=== PATIENT | female | born 1955 | race Caucasian/White ===

== ENCOUNTER 2022-12-27 08:01 | Outpatient (OUT) | payer MEDICARE, SELFPAY ==
[2022-12-27 09:40] LABS: Alanine Aminotransferase 40 U/L (14-59); Albumin Globulin Ratio 0.9; Albumin Level 2.8 g/dL (3.4-5.0); Alkaline Phosphatase 38 U/L (46-116); Aspartate Amino Transferase 35 U/L (15-37); Bilirubin Direct 0.1 mg/dL (0.0-0.2); Bilirubin Total 0.1 mg/dL (0.2-1.0); Calcium 7.7 mg/dL (8.5-10.1); Chol HDL Ratio 1.9; Cholesterol 111 mg/dL (<=200); HDL Cholesterol 59 mg/dL (40-60); LDL Cholesterol Calculated 26.2 mg/dL; Total Protein 5.8 g/dL (6.4-8.2); Triglycerides 129 mg/dL (<=150); VLDL CHOLESTEROL 25.8 mg/dL
[2022-12-27 09:46] LABS: Estimated Average Glucose 94 mg/dL; Glycohemoglobin A1C 4.9 % (4.5-6.2)
== END 2022-12-27 08:02 ==
LOC: LAB 08:06
DX: Z79.899 Other long term (current) drug therapy (principal); E78.5 Hyperlipidemia, unspecified; I50.20 Unspecified systolic (congestive) heart failure; M81.0 Age-related osteoporosis without current pathological fracture
CPT/HCPCS: 36415; 80061; 80076; 82306; 82310; 83036; 83880; 84443

== ENCOUNTER 2023-01-18 17:43 | Emergency (ER) | payer MEDICARE, SELFPAY ==
[2023-01-18 17:50] VITALS: BP 153/80; PULSE 85; RESP 20; TEMP 36.8; O2SAT 99; BMI 24.7
--- NOTE | 2023-01-18 18:06 | XR_ITS ---
[address] [address] Patient Name: ASHVIN RENE MRN: [id number] date: 1955 Sex: F Assigned Patient Location: ER Current Patient Location: ED.MAIN Accession/Order Number: [id number] Exam Date: 01/18/2023 18:25 Report Date: 01/18/2023 18:59 At the request of: SHANTI RAINEY Procedure: XR tibia fibula LT 2V EXAM: XR ankle LT min 3V, XR tibia fibula LT 2V HISTORY: atraumatic pain COMPARISON: None. TECHNIQUE: 3 views of the left ankle and 2 views of the left tibia fibula FINDINGS: There is no acute fracture or dislocation. There is a small heel spur. Diffuse osteopenia. There is vascular calcification. Soft tissue is unremarkable. IMPRESSION: No acute fracture. Electronically authenticated by: CHASITY CRISOSTOMO Date: 01/18/2023 18:59
--- NOTE | 2023-01-18 18:06 | XR_ITS ---
The [address] [address] Patient Name: ASHVIN RENE MRN: [id number] date: 1955 Sex: F Assigned Patient Location: ER Current Patient Location: ED.MAIN Accession/Order Number: [id number] Exam Date: 01/18/2023 18:25 Report Date: 01/18/2023 18:59 At the request of: SHANTI RAINEY Procedure: XR ankle LT min 3V EXAM: XR ankle LT min 3V, XR tibia fibula LT 2V HISTORY: atraumatic pain COMPARISON: None. TECHNIQUE: 3 views of the left ankle and 2 views of the left tibia fibula FINDINGS: There is no acute fracture or dislocation. There is a small heel spur. Diffuse osteopenia. There is vascular calcification. Soft tissue is unremarkable. IMPRESSION: No acute fracture. Electronically authenticated by: CHASITY CRISOSTOMO Date: 01/18/2023 18:59
--- NOTE | 2023-01-18 18:07 | US_ITS ---
The [address] [address] Patient Name: ASHVIN RENE MRN: [id number] date: 1955 Sex: F Assigned Patient Location: ER Current Patient Location: ED.MAIN Accession/Order Number: [id number] Exam Date: 01/18/2023 19:02 Report Date: 01/18/2023 20:03 At the request of: SHANTI RAINEY Procedure: US venous doppler LE LT EXAM: US venous doppler LE LT HISTORY: pain COMPARISON: None. TECHNIQUE: Ultrasonography of the left lower extremity is performed. FINDINGS: The deep venous structures demonstrate normal compressibility. There is no intraluminal thrombus. Normal color Doppler images with spectral waveforms. There are atherosclerotic calcifications throughout the arterial system. Biphasic and triphasic waveforms are noted distally. There appears to be somewhat elevated velocity within the left posterior tibial artery. IMPRESSION: No acute deep venous thrombosis. Atherosclerotic vascular changes. Electronically authenticated by: JASWANT DOBSON Date: 01/18/2023 20:03
--- NOTE | 2023-01-18 18:17 | ED_ITS ---
HPI - General Adult General Chief complaint: Extremity Injury, Lower Stated complaint: LOWER EXTREMITY PAIN Time Seen by Provider: 01/18/23 17:48 Source: patient Mode of arrival: Wheelchair Limitations: no limitations History of Present Illness HPI narrative: 67-year-old female presents for pain in her left lower leg. It begins on the lateral aspect of her ankle and it travels up her calf. She's had this for a we ek and half and doesn't recall any unusual activity or any injury. No chest pain or shortness of breath. She states sometimes it feels swollen. It goes all the way up to her knee but the knee itself is not hurting. The pain is moderate and it's worse when she walks on it. Related Data Allergies Allergy/AdvReac Type Severity Reaction Status Date / Time No Known Drug Allergies Allergy Verified 01/18/23 17:50 Review of Systems ROS Narrative A ten point review of systems is negative except as noted above. Exam Narrative Exam Narrative: Nurses note and vital signs reviewed and patient is not hypoxic. General: The patient appears well and in no apparent distress. Patient is resting comfortably on cart. Skin: Warm, dry, no pallor noted. There is no rash noted. Head: Normocephalic, atraumatic Eye: Normal conjunctiva, no drainage Ears, Nose, Mouth, and Throat: oral mucosa is moist. Nares patent. most teeth are missing. Cardiovascular: Regular Rate and Rhythm Respiratory: Patient is in no distress, no accessory muscle use, lungs are clear to auscultation, no wheezing, rales or rhonchi Back: non-tender GI: soft and nontender Musculoskeletal: her left leg is examined. The foot and ankle and lower legs do not appear swollen. She has some tenderness in the lateral distal aspect of the lower leg extending up into the calf area. No mass or bruises or rashes present. dorsalis pedis pulse 2+. Neurological: A&O, normal speech Psychiatric: Cooperative Constitutional Vital Signs, click to edit/add: Last Vital Signs Temp 98.2 F 01/18/23 17:50 Pulse 85 01/18/23 17:50 Resp 20 01/18/23 17:50 BP 153/80 H 01/18/23 17:50 Pulse Ox 99 01/18/23 17:50 O2 Del Method Room Air 01/18/23 17:50 Course Vital Signs Vital signs: Vital Signs Temperature 98.2 F 01/18/23 17:50 Pulse Rate 85 01/18/23 17:50 Respiratory Rate 20 01/18/23 17:50 Blood Pressure 153/80 H 01/18/23 17:50 Pulse Oximetry 99 01/18/23 17:50 Oxygen Delivery Method Room Air 01/18/23 17:50 Temperature 98.2 F 01/18/23 17:50 Pulse Rate 85 01/18/23 17:50 Respiratory Rate 20 01/18/23 17:50 Blood Pressure 153/80 H 01/18/23 17:50 Pulse Oximetry 99 01/18/23 17:50 Oxygen Delivery Method Room Air 01/18/23 17:50 Medical Decision Making MDM Narrative Medical decision making narrative: x-rays and Doppler ordered and the patient is signed out to Dr. John. Discharge Plan Discharge Chief Complaint: Extremity Injury, Lower Clinical Impression: Left leg pain Patient Disposition: Still a Patient Referrals: Physician,Non-Staff, MD [Primary Care Provider] - 1 week
[2023-01-18 19:55] VITALS: BP 164/86; PULSE 86; RESP 14; O2SAT 98
== END 2023-01-18 20:06 | disposition home or self-care (01) ==
PROVIDERS: Emergency Provider Emergency Medicine
DX: M79.662 Pain in left lower leg (principal)
CPT/HCPCS: 73590; 73610; 93971; 99284

== ENCOUNTER 2023-02-16 13:00 | Emergency (ER) | payer MEDICARE, SELFPAY ==
[2023-02-16] VITALS (36 sets, daily range): BP systolic 96–154; BP diastolic 51–84; PULSE 66–82; RESP 13–25; TEMP 36.4; O2SAT 90–100; BMI 23.8
--- NOTE | 2023-02-16 13:35 | CT_ITS ---
The [address] [address] Patient Name: ASHVIN RENE MRN: [id number] date: 1955 Sex: F Assigned Patient Location: ER Current Patient Location: ER Accession/Order Number: [id number] Exam Date: 02/16/2023 13:36 Report Date: 02/16/2023 14:05 At the request of: KOJO ALVA Procedure: CT stroke head/brain wo con EXAM: CT stroke head/brain wo con HISTORY: stroke like symptoms COMPARISON: CT head from 04/22/2021. TECHNIQUE: Noncontrast CT was obtained through the head. Dose reduction techniques were achieved by using automated exposure control and/or adjustment of mA and/or kV according to patient size and/or use of iterative reconstruction technique. FINDINGS: The ventricles, sulci, and remaining CSF containing spaces maintain age-appropriate volume and symmetry. No herniation or hydrocephalus. The solomon matter/white matter differentiation is maintained throughout. No CT evidence of contemporary infarction. No acute intracranial hemorrhage or parenchymal mass. The calvarium and skull base are intact. The pneumatized portions of the skull are clear. CT/CT stroke head/brain wo con IMPRESSION: 1. No acute intracranial abnormality. Electronically authenticated by: MILES PEACE Date: 02/16/2023 14:05
--- NOTE | 2023-02-16 13:40 | XR_ITS ---
The [address] [address] Patient Name: ASHVIN RENE MRN: [id number] date: 1955 Sex: F Assigned Patient Location: ER Current Patient Location: ER Accession/Order Number: [id number] Exam Date: 02/16/2023 14:15 Report Date: 02/16/2023 14:36 At the request of: KOJO ALVA Procedure: XR chest 1V EXAM: XR chest 1V HISTORY: Chest pain. COMPARISON: None. TECHNIQUE: AP erect portable chest radiograph performed. FINDINGS: Median sternotomy wires. There is a loop recorder overlying the mid lower chest. The trachea is midline. The heart size is normal. There appears to be a large hiatal hernia. There is moderate elevation of the right hemidiaphragm. There is no consolidation or infiltrate. There is no pleural effusion or woman avascular congestion. There is no pneumothorax. The bony structures are osteopenic. There is no acute osseous abnormality. XR/XR chest 1V IMPRESSION: Median sternotomy. There is a loop recorder overlying the mid lower chest. There appears to be a large hiatal hernia. There is moderate elevation of the right hemidiaphragm. The graft the lung minaya are clear. Electronically authenticated by: ELI LOPEZ Date: 02/16/2023 14:36
--- NOTE | 2023-02-16 13:40 | ECG_ITS ---
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
[2023-02-16 13:58] LABS: Basophils Percent Auto 0.4 % (0.2-2.0); Eosinophils Absolute Auto 0.1 10^3/uL (0.0-0.7); Hemoglobin 11.7 g/dL (12.0-16.0); Immature Granulocytes Abs Auto 0.02 10^3/uL (0.00-0.03); Immature Granulocytes Pct Auto 0.4 % (0.0-0.5); Lymphocytes Absolute Auto 1.4 10^3/uL (1.2-3.8); Mean Corpuscular HGB Conc 31.6 g/dL (29.9-35.2); Mean Corpuscular Hemoglobin 32.9 pg (26.7-34.0); Mean Corpuscular Volume 103.9 fL (81.0-99.0); Mean Platelet Volume 9.5 fL (9.5-13.5); Monocytes Absolute Auto 0.6 10^3/uL (0.3-0.8); Monocytes Percent Auto 10.7 % (1.7-12.0); Neutrophils Absolute Auto 3.5 10^3/uL (1.4-6.5); Neutrophils Percent Auto 61.5 % (43.0-75.0); Platelet Count 179 10^3/uL (150-450); Red Blood Count 3.56 10^6/uL (4.20-5.40); Red Cell Distribution Width 15.1 % (11.0-15.0); White Blood Count 5.6 10^3/uL (4.0-11.0)
[2023-02-16 14:16] LABS: INR 1.04; Partial Thromboplastin Time 27.1 sec (22.3-36.2)
[2023-02-16 14:23] LABS: Alanine Aminotransferase 41 U/L (14-59); Albumin Globulin Ratio 1.1; Alkaline Phosphatase 49 U/L (46-116); Anion Gap 15.2; Aspartate Amino Transferase 28 U/L (15-37); BUN Creatinine Ratio 22.7; Bilirubin Total 0.2 mg/dL (0.2-1.0); Calcium 7.2 mg/dL (8.5-10.1); Carbon Dioxide 20.3 mmol/L (21.0-32.0); Chloride 109 mmol/L (98-107); Estimated GFR (African America >60 (>=60); Estimated GFR (Non-African Ame 57 (>=60); Globulin 2.7 g/dL; Glucose 166 mg/dL (74-106); Potassium 4.5 mmol/L (3.5-5.1); Sodium 140 mmol/L (136-145); Total Protein 5.7 g/dL (6.4-8.2); Troponin I High Sensitivity 19.8 pg/mL (4.0-51.3)
--- NOTE | 2023-02-16 14:23 | ED_ITS ---
HPI - Weakness General Chief complaint: Weakness Stated complaint: STROKE SYMPTOMS Time Seen by Provider: 02/16/23 13:40 Source: patient and family Mode of arrival: Wheelchair Limitations: no limitations History of Present Illness HPI Narrative: Patient brought into the emergency department by family with a complaint of stroke. Patient has a history of coronary artery disease. She was hospitalized at [facility] where she had a heart catheterization yesterday. She had a stent placed over her graft. Patient also has a loop recorder. Patient states last night was she was still in the hospital she vomited one time and she became very weak when she was vomiting where she felt like she passed out. Patient states after she vomited she felt well. Today she was discharged And they stopped to have breakfast at [facility]. The patient ate a lot. She has a history of a gastric bypass and she normally cannot eat a lot. Family states when she eats a lot she tends to vomit afterwards. So after the patient ate there were getting into the car and she started to vomit. She subsequently felt like she had tunnel vision she felt like her arms were weak legs were weak as if she was passing out she couldn't even get into the car by herself but her son helped her get into the car and then they drove here as they're calling this episode stroke. Patient recovered immediately and now she does not have any symptoms. She states this is exactly like what happened last night while she was in the hospital. She states she's also had this happen before when she vomits. She denies any hematemesis. She denies any abdominal pain. She denies any chest pain, or shortness of breath. She denies any fever, or chills. Related Data Previous Rx's Medication Instructions Recorded nabumetone 750 mg tablet 750 mg PO BID PRN pain #20 tabs 01/18/23 Allergies Allergy/AdvReac Type Severity Reaction Status Date / Time No Known Drug Allergies Allergy Verified 01/18/23 17:50 Review of Systems ROS Status of ROS 10 or more systems reviewed and unremarkable except as noted in history and below [facility] Social History Smoking status: Former smoker Exam Narrative Exam Narrative: Nurses notes and vital signs reviewed and patient is not hypoxic. General: Nontoxic,Chronically ill, Well-appearing and in no apparent distress. Skin: Warm, dry, no pallor noted. No Rash Head: Normocephalic, atraumatic. Neck: Supple, non-tender. Eye: Pupils are equal, round and EOMI. No scleral icterus. Ears, Nose, Mouth, and Throat: TM clear, no posterior oropharynx erythema or nasal mucosal hypertrophy, uvula is mid-line Oral mucosa is moist Cardiovascular: Regular Rate and Rhythm without murmur, gallop or rub. Respiratory: No accessory muscle use or respiratory distress. Lungs are clear to auscultation, no wheezing, rales or rhonchi Chest Wall: no tenderness Back: No midline thoracic or lumbar vertebral tenderness. No CVA tenderness Musculoskeletal: normal ROM, no calf or popliteal tenderness, no lower extremity edema/swelling GI: Abdomen is soft, non-distended. Normal bowel sounds. No masses appreciated. No tenderness to palpation. No rebound, guarding, or rigidity noted. Neurological: A&O x4. No cranial nerve dysfunction observed. No truncal ataxia. Moves all extremities. Sensation intact. Psychiatric: Cooperative and interactive. Normal mood and affect. Constitutional Vital Signs, click to edit/add: Last Vital Signs Temp 97.6 F 02/16/23 13:05 Pulse 73 02/16/23 16:10 Resp 22 02/16/23 16:10 BP 114/60 02/16/23 16:01 Pulse Ox 90 L 02/16/23 17:30 O2 Del Method Room Air 02/16/23 13:05 Course Vital Signs Vital signs: Vital Signs Temperature 97.6 F 02/16/23 13:05 Pulse Rate 82 02/16/23 13:05 Respiratory Rate 16 02/16/23 13:05 Blood Pressure 134/84 02/16/23 13:05 Pulse Oximetry 96 02/16/23 13:05 Oxygen Delivery Method Room Air 02/16/23 13:05 Temperature 97.6 F 02/16/23 13:05 Pulse Rate 73 02/16/23 16:10 Respiratory Rate 22 02/16/23 16:10 Blood Pressure 114/60 02/16/23 16:01 Pulse Oximetry 90 L 02/16/23 17:30 Oxygen Delivery Method Room Air 02/16/23 13:05 MDM - Weakness MDM Narrative Medical decision making narrative: Patient's history and physical are more consistent with post hyperphagia emesis and vasovagal syncope. Patient's CT scan of the brain is unremarkable. Because of the patient's history and will check labs with the least 2 troponins and discussed the case with cardiology. pt remains asymptomatic and hemodynamically stable. Patient was monitored for 5 hours in the emergency department. She remains asymptomatic. All the records from the patient's admission, heart catheterization, and EKG from creative services specialist at [place] was reviewed and there are no acute changes when compared to today's EKG. The patient was discussed with dairy lab technician Dr. Kuhn who advised that the workup done is pretty thorough and she is not concerned about any of the findings currently. They advised to have the patient follow-up with cardiology as an outpatient. In the meantime if the patient is to have any other symptoms or concerns she is to return to the emergency department immediately. Medical Records Attestation: I reviewed the patient's medical records. Lab Data Attestation: I reviewed the patient's lab results. Labs: Lab Results 02/16/23 02/16/23 Range/Units 13:45 16:15 WBC 5.6 (4.0-11.0) 10^3/uL RBC 3.56 L (4.20-5.40) 10^6/uL Hgb 11.7 L (12.0-16.0) g/dL Hct 37.0 (36.0-48.0) % MCV 103.9 H (81.0-99.0) fL MCH 32.9 (26.7-34.0) pg MCHC 31.6 (29.9-35.2) g/dL RDW 15.1 H (11.0-15.0) % Plt Count 179 (150-450) 10^3/uL MPV 9.5 (9.5-13.5) fL Neut % (Auto) 61.5 (43.0-75.0) % Lymph % (Auto) 25.0 (20.5-60.0) % [place] % (Auto) 10.7 (1.7-12.0) % Eos % (Auto) 2.0 (0.9-7.0) % Baso % (Auto) 0.4 (0.2-2.0) % Neut # (Auto) 3.5 (1.4-6.5) 10^3/uL Lymph # (Auto) 1.4 (1.2-3.8) 10^3/uL [place] # (Auto) 0.6 (0.3-0.8) 10^3/uL Eos # (Auto) 0.1 (0.0-0.7) 10^3/uL Baso # (Auto) 0.0 (0.0-0.1) 10^3/uL Abs Immat Gran (auto) 0.02 (0.00-0.03) 10^3/uL Imm/Tot Granulo (auto) 0.4 (0.0-0.5) % PT 11.0 (9.0-11.6) sec INR 1.04 APTT 27.1 (22.3-36.2) sec Sodium 140 (136-145) mmol/L Potassium 4.5 (3.5-5.1) mmol/L Chloride 109 H (98-107) mmol/L Carbon Dioxide 20.3 L (21.0-32.0) mmol/L Anion Gap 15.2 BUN 22.0 H (7.0-18.0) mg/dL Creatinine 0.97 (0.55-1.02) mg/dL Est GFR ( Amer) >60 (>=60) Est GFR (Non-Af Amer) 57 L (>=60) BUN/Creatinine Ratio 22.7 Glucose 166 H (74-106) mg/dL Calcium 7.2 L (8.5-10.1) mg/dL Total Bilirubin 0.2 (0.2-1.0) mg/dL AST 28 (15-37) U/L ALT 41 (14-59) U/L Alkaline Phosphatase 49 (46-116) U/L Troponin I High Sens 19.8 21.5 (4.0-51.3) pg/mL NT-Pro-B Natriuret Pep 1548.0 H* (<=900.0) pg/mL Total Protein 5.7 L (6.4-8.2) g/dL Albumin 3.0 L (3.4-5.0) g/dL Globulin 2.7 g/dL Albumin/Globulin Ratio 1.1 ECG Data Attestation: I personally reviewed and interpreted this ECG as follows: Interpretation: Sinus rhythm at 67 bpm. Inferior lateral T-wave inversion Discharge Plan Discharge Chief Complaint: Weakness Clinical Impression: Near syncope, Vomiting Patient Disposition: Home, Self-Care Time of Disposition Decision: 18:25 Condition: Good Mode of Transportation: Private Vehicle Prescriptions / Home Meds: No Action nabumetone 750 mg tablet 750 mg PO BID PRN (Reason: pain) Qty: 20 0RF Instructions: Acute Nausea and Vomiting (ED), Near Syncope (ED) Stand Alone Forms: Portal Instructions Referrals: Physician,Non-Staff, MD [Primary Care Provider] - 1 week
[2023-02-16 16:50] LABS: Troponin I High Sensitivity 21.5 pg/mL (4.0-51.3)
== END 2023-02-16 18:37 | disposition home or self-care (01) ==
PROVIDERS: Emergency Provider Emergency Medicine
DX: R55 Syncope and collapse (principal); R11.10 Vomiting, unspecified; I25.10 Atherosclerotic heart disease of native coronary artery without angina pectoris; Z87.891 Personal history of nicotine dependence; Z95.5 Presence of coronary angioplasty implant and graft; Z98.84 Bariatric surgery status; Z95.818 Presence of other cardiac implants and grafts
CPT/HCPCS: 36415; 70450; 71045; 80053; 83880; 84484; 85025; 85610; 85730; 93005; 99285

== ENCOUNTER 2023-05-27 07:07 | Outpatient (RCR) | payer MEDICARE, SELFPAY ==
--- NOTE | 2023-04-04 15:18 | CR1_ITS ---
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
--- NOTE | 2023-05-01 08:48 | CR1_ITS ---
The 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
--- NOTE | 2023-05-30 10:49 | CR1_ITS ---
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
== END 2023-07-04 15:13 | disposition home or self-care (01) ==
LOC: CR 07:07
PROVIDERS: Visit Provider Internal Medicine
DX: I25.700 Atherosclerosis of coronary artery bypass graft(s), unspecified, with unstable angina pectoris (principal); Z95.5 Presence of coronary angioplasty implant and graft
CPT/HCPCS: 93798

== ENCOUNTER 2023-08-26 13:48 | Outpatient (RCR) | payer MEDICARE, SELFPAY | END 2023-10-11 12:12 | disposition home or self-care (01) | LOC: PT 13:48 | DX: M25.562 Pain in left knee (principal) | CPT/HCPCS: 97110; 97112; 97140; 97163 ==

== ENCOUNTER 2023-10-12 14:56 | Emergency (ER) | payer MEDICARE, SELFPAY ==
[2023-10-12] VITALS (38 sets, daily range): BP systolic 82–141; BP diastolic 65–92; PULSE 79–93; TEMP 36.7; O2SAT 88–100; BMI 26.2
--- NOTE | 2023-10-12 15:09 | XR_ITS ---
The [address] [address] Patient Name: ASHVIN RENE MRN: [id number] date: 1955 Sex: F Assigned Patient Location: ER Current Patient Location: ER Accession/Order Number: [id number] Exam Date: 10/12/2023 15:15 Report Date: 10/12/2023 15:30 At the request of: SMITHA WILDE Procedure: XR chest 2V CHEST X-RAY. INDICATION: Weakness and cough COMPARISON: There are no previous studies available for comparison. TECHNIQUE: Frontal and lateral chest radiographs. FINDINGS: TUBES AND LINES: None. LUNGS: There are mild opacities in the left lower lobe. PLEURA: Probable trace left effusion. HEART AND MEDIASTINUM: Within normal limits. OSSEOUS STRUCTURES: No acute abnormality. XR/XR chest 2V IMPRESSION: Left lower lobe opacity suspicious for pneumonia. Electronically authenticated by: RESHMA ELKINS Date: 10/12/2023 15:30
[2023-10-12 15:29] LABS: Influenza Virus A Antigen Negative; Influenza Virus B Antigen Negative; Internal Control Within Normal Limits; SARS-CoV-2 Ag NEGATIVE (NEGATIVE)
--- NOTE | 2023-10-12 15:44 | ECG_ITS ---
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
--- NOTE | 2023-10-12 15:45 | ED.GENADUL1 ---
HPI HPI - General Adult General Chief complaint: Upper Respiratory Infection Stated complaint: CHEST PAIN COLD SYMPTOMS Time Seen by Provider: 10/12/23 15:38 Source: patient Mode of arrival: Wheelchair History of Present Illness HPI narrative: Patient is a 67-year-old female who presents to the emergency department for 2-day history of flulike symptoms. She reports sore throat, generalized weakness, cough and congestion. She states she has chest pain with coughing, she does feel short of breath. She has a history of coronary artery disease and is on Plavix. She denies fevers, vomiting, diarrhea. No sick contacts in the home. She denies any extremity swelling. No medications taken prior to arrival. Related Data Home Medications ?Medication ?Instructions ?Recorded ?Confirmed clopidogrel 75 mg tablet 75 mg PO DAILY 10/12/23 10/12/23 duloxetine 30 mg capsule,delayed 30 mg PO DAILY 10/12/23 10/12/23 release famotidine 40 mg tablet 40 mg PO DAILY 10/12/23 10/12/23 fludrocortisone 0.1 mg tablet 0.05 mg PO DAILY 10/12/23 10/12/23 ibandronate 150 mg tablet 150 mg PO .every 30 days 10/12/23 10/12/23 liothyronine 5 mcg tablet 5 mcg PO DAILY 10/12/23 10/12/23 metoprolol succinate 25 mg 25 mg PO DAILY 10/12/23 10/12/23 tablet,extended release 24 hr midodrine 10 mg tablet mg 10/12/23 montelukast 10 mg tablet 10 mg PO DAILY 10/12/23 10/12/23 pantoprazole 40 mg tablet,delayed mg PO 10/12/23 release pregabalin 50 mg capsule 50 mg PO BID 10/12/23 10/12/23 ranolazine 1,000 mg 1,000 mg PO Q12H 10/12/23 10/12/23 tablet,extended release,12 hr rosuvastatin 20 mg tablet 20 mg PO DAILY 10/12/23 10/12/23 sucralfate 1 gram tablet 1 g PO BID 10/12/23 10/12/23 trazodone 150 mg tablet 150 mg PO BEDTIME 10/12/23 10/12/23 Previous Rx's ?Medication ?Instructions ?Recorded nabumetone 750 mg tablet 750 mg PO BID PRN pain #20 tabs 07/08/23 Allergies Allergy/AdvReac Type Severity Reaction Status Date / Time No Known Drug Allergies Allergy Verified 01/18/23 17:50 Opioid HPI Opioid Management Most Recent Opioid Data: Last Pain Scale 6 01/18/23 18:23 Review of Systems ROS Constitutional Denies: fever or chills Ears, nose, mouth, and throat Reports: throat pain and nasal congestion Cardiovascular Reports: chest pain Respiratory Reports: shortness of breath and cough Gastrointestinal Denies: nausea, vomiting or diarrhea Genitourinary Denies: painful urination Musculoskeletal Denies: back pain Integumentary/Breast Denies: rash Neurological Denies: headache Hematologic/Lymphatic Denies: easy bruising or easy bleeding PFSH PFS Social History Smoking status: Former smoker Exam Narrative Exam Narrative: Gen.: Awake, alert, in no distress Head: Normocephalic, atraumatic ENT: Moist mucous membranes Respiratory: No respiratory distress, lungs clear bilaterally Cardio: Regular rate and rhythm Gastrointestinal: Abdomen is soft, nondistended and nontender to palpation Extremities: Moves extremities equally, no pedal edema Psych: Normal mood and affect Neuro: No focal neuro deficit Skin: Warm, dry, intact Constitutional Vital Signs, click to edit/add: Last Vital Signs Temp 98.0 F 10/12/23 15:02 Pulse 88 10/12/23 17:50 Resp 12 10/12/23 15:58 BP 133/86 10/12/23 17:33 Pulse Ox 96 10/12/23 17:50 O2 Del Method Room Air 10/12/23 16:35 O2 Flow Rate 2 10/12/23 16:35 Course Vital Signs Vital signs: Vital Signs Temperature 98.0 F 10/12/23 15:02 Pulse Rate 85 10/12/23 15:02 Respiratory Rate 16 10/12/23 15:02 Blood Pressure 114/65 10/12/23 15:02 Pulse Oximetry 92 L 10/12/23 15:02 Temperature 98.0 F 10/12/23 15:02 Pulse Rate 88 10/12/23 17:50 Respiratory Rate 12 10/12/23 15:58 Blood Pressure 133/86 10/12/23 17:33 Pulse Oximetry 96 10/12/23 17:50 Oxygen Delivery Method Room Air 10/12/23 16:35 Oxygen Delivery Flow Rate 2 10/12/23 16:35 Medical Decision Making MDM Narrative Medical decision making narrative: Patient reported chest pain with coughing over the last 4 days although she does not have any active chest pain in the ER. She had borderline oxygen saturation of 92 to 93% on room air and was placed on a nasal cannula at 2 L for comfort with improvement. She was given a breathing treatment, Solu-Medrol for suspected flulike illness. She is negative for COVID, influenza and RSV. Chest x-ray shows a small infiltrate in the left lower lobe and she was given Levaquin for this although she does not appear septic. White blood cell count, lactic acid are within normal limits and she has no fever or tachycardia in the ER. Lab studies show the patient has significantly elevated high-sensitivity troponin over 26,000 as well as elevated BNP. Her potassium is 2.1. She was given 50 mEq of oral K-Lyte as well as 40 mEq of IV potassium over 4 hours. Aspirin and heparin drip initiated for NSTEMI. Case was discussed with the patient's cardiology service at [facility] where she has been seen before for cardiology and heart catheterization with stent placement. Dr. Valdez Accepted the patient for transfer to [facility]. She is stable at time of transfer. Repeat troponin and potassium level will be obtained prior to her transfer. Critical care time 35 minutes. Medical Records Medical records reviewed: Yes I reviewed the patient's medical records Lab Data Lab results reviewed: Yes I reviewed the patient's lab results Labs: Lab Results 10/12/23 10/12/23 10/12/23 Range/Units 15:08 15:09 16:15 WBC 7.3 (4.0-11.0) 10^3/uL RBC 3.30 L (4.20-5.40) 10^6/uL Hgb 11.4 L (12.0-16.0) g/dL Hct 35.1 L (36.0-48.0) % MCV 106.4 H (81.0-99.0) fL MCH 34.5 H (26.7-34.0) pg MCHC 32.5 (29.9-35.2) g/dL RDW 12.7 (11.0-15.0) % Plt Count 149 L (150-450) 10^3/uL MPV 10.1 (9.5-13.5) fL Neut % (Auto) 76.7 H (43.0-75.0) % Lymph % (Auto) 18.3 L (20.5-60.0) % [place] % (Auto) 4.4 (1.7-12.0) % Eos % (Auto) 0.1 L (0.9-7.0) % Baso % (Auto) 0.4 (0.2-2.0) % Neut # (Auto) 5.6 (1.4-6.5) 10^3/uL Lymph # (Auto) 1.3 (1.2-3.8) 10^3/uL [place] # (Auto) 0.3 (0.3-0.8) 10^3/uL Eos # (Auto) 0.0 (0.0-0.7) 10^3/uL Baso # (Auto) 0.0 (0.0-0.1) 10^3/uL Abs Immat Gran (auto) 0.01 (0.00-0.03) 10^3/uL Imm/Tot Granulo (auto) 0.1 (0.0-0.5) % VBG pH (7.330-7.430) VBG pCO2 (40.0-52.0) mmHg Sodium 142 (136-145) mmol/L Potassium 2.1 L* (3.5-5.1) mmol/L Chloride 101 (98-107) mmol/L Carbon Dioxide 34.3 H (21.0-32.0) mmol/L Anion Gap 8.8 BUN 18.0 (7.0-18.0) mg/dL Creatinine 0.97 (0.55-1.02) mg/dL Est GFR ( Amer) >60 (>=60) Est GFR (Non-Af Amer) 57 L (>=60) BUN/Creatinine Ratio 18.6 Glucose 106 (74-106) mg/dL Lactate 1.7 (0.4-2.0) mmol/L Calcium 6.5 L (8.5-10.1) mg/dL Total Bilirubin 0.4 (0.2-1.0) mg/dL AST 179 H (15-37) U/L ALT 50 (14-59) U/L Alkaline Phosphatase 53 (46-116) U/L Troponin I High Sens 59517.0 H* (4.0-51.3) pg/mL NT-Pro-B Natriuret Pep 35808.0 H* (<=900.0) pg/mL Total Protein 4.2 L (6.4-8.2) g/dL Albumin 1.8 L (3.4-5.0) g/dL Globulin 2.4 g/dL Albumin/Globulin Ratio 0.8 Influenza Type A Ag Negative Influenza Type B Ag Negative RSV Antigen Not detected (NOT DETECTE) SARS-CoV-2 Ag (CV2AG) Negative (NEGATIVE) 10/12/23 Range/Units 17:30 WBC (4.0-11.0) 10^3/uL RBC (4.20-5.40) 10^6/uL Hgb (12.0-16.0) g/dL Hct (36.0-48.0) % MCV (81.0-99.0) fL MCH (26.7-34.0) pg MCHC (29.9-35.2) g/dL RDW (11.0-15.0) % Plt Count (150-450) 10^3/uL MPV (9.5-13.5) fL Neut % (Auto) (43.0-75.0) % Lymph % (Auto) (20.5-60.0) % [place] % (Auto) (1.7-12.0) % Eos % (Auto) (0.9-7.0) % Baso % (Auto) (0.2-2.0) % Neut # (Auto) (1.4-6.5) 10^3/uL Lymph # (Auto) (1.2-3.8) 10^3/uL [place] # (Auto) (0.3-0.8) 10^3/uL Eos # (Auto) (0.0-0.7) 10^3/uL Baso # (Auto) (0.0-0.1) 10^3/uL Abs Immat Gran (auto) (0.00-0.03) 10^3/uL Imm/Tot Granulo (auto) (0.0-0.5) % VBG pH 7.515 H (7.330-7.430) VBG pCO2 42.7 (40.0-52.0) mmHg Sodium (136-145) mmol/L Potassium (3.5-5.1) mmol/L Chloride (98-107) mmol/L Carbon Dioxide (21.0-32.0) mmol/L Anion Gap BUN (7.0-18.0) mg/dL Creatinine (0.55-1.02) mg/dL Est GFR ( Amer) (>=60) Est GFR (Non-Af Amer) (>=60) BUN/Creatinine Ratio Glucose (74-106) mg/dL Lactate (0.4-2.0) mmol/L Calcium (8.5-10.1) mg/dL Total Bilirubin (0.2-1.0) mg/dL AST (15-37) U/L ALT (14-59) U/L Alkaline Phosphatase (46-116) U/L Troponin I High Sens (4.0-51.3) pg/mL NT-Pro-B Natriuret Pep (<=900.0) pg/mL Total Protein (6.4-8.2) g/dL Albumin (3.4-5.0) g/dL Globulin g/dL Albumin/Globulin Ratio Influenza Type A Ag Influenza Type B Ag RSV Antigen (NOT DETECTE) SARS-CoV-2 Ag (CV2AG) (NEGATIVE) Imaging Data Chest x-ray: Attestation: I have reviewed the pertinent imaging results. Radiologist's impression: ITS Impressions Chest X-Ray 10/12/23 15:09 IMPRESSION: Left lower lobe opacity suspicious for pneumonia. Electronically authenticated by: RESHMA ELKINS Date: 10/12/2023 15:30 ECG Data Attestation: I personally reviewed and interpreted this ECG as follows: (Normal sinus rhythm at a rate of 83, no acute ST elevation, moderate ST depression with Occasional ectopy. EKG reviewed by attending physician.EKG reviewed and compared to previous EKG from February of last year, no new acute changes noted.) Critical Care Time Critical Care Time Critical Care Time: Yes Total Critical Care Time: 35 Attestation: 35 minutes of critical care time for initiation of potassium drip, heparin drip, transfer to tertiary care facility Discharge Plan Discharge Chief Complaint: Upper Respiratory Infection Clinical Impression: CHF (congestive heart failure), Non-STEMI (non-ST elevated myocardial infarction), Left lower lobe pneumonia, Acute hypokalemia [facility] Time of Disposition Decision: 18:40 Discharge Location: [facility] Condition: Fair Prescriptions / Home Meds: No Action nabumetone 750 mg tablet 750 mg PO BID PRN (Reason: pain) Qty: 20 0RF Print Language: Irish Referrals: Physician,Non-Staff, MD [Primary Care Provider] - 1 week
[2023-10-12] MEDS: 0.9 % SODIUM CHLORIDE 1,000 ML 1000 ML IV (15:54)
[2023-10-12] MEDS: METHYLPREDNISOLONE SOD SUCC PF 125 MG/2 ML VIAL IVP (15:55)
[2023-10-12] MEDS: ALBUTEROL SULFATE 2.5 MG/3 ML VIAL NEB IH (15:56)
[2023-10-12 16:24] LABS: Basophils Percent Auto 0.4 % (0.2-2.0); Eosinophils Percent Auto 0.1 % (0.9-7.0); Hematocrit 35.1 % (36.0-48.0); Hemoglobin 11.4 g/dL (12.0-16.0); Immature Granulocytes Abs Auto 0.01 10^3/uL (0.00-0.03); Immature Granulocytes Pct Auto 0.1 % (0.0-0.5); Lymphocytes Absolute Auto 1.3 10^3/uL (1.2-3.8); Lymphocytes Percent Auto 18.3 % (20.5-60.0); Mean Corpuscular HGB Conc 32.5 g/dL (29.9-35.2); Mean Corpuscular Hemoglobin 34.5 pg (26.7-34.0); Mean Corpuscular Volume 106.4 fL (81.0-99.0); Mean Platelet Volume 10.1 fL (9.5-13.5); Monocytes Absolute Auto 0.3 10^3/uL (0.3-0.8); Monocytes Percent Auto 4.4 % (1.7-12.0); Neutrophils Absolute Auto 5.6 10^3/uL (1.4-6.5); Neutrophils Percent Auto 76.7 % (43.0-75.0); Platelet Count 149 10^3/uL (150-450); Red Cell Distribution Width 12.7 % (11.0-15.0); White Blood Count 7.3 10^3/uL (4.0-11.0)
[2023-10-12 16:45] LABS: Alanine Aminotransferase 50 U/L (14-59); Albumin Globulin Ratio 0.8; Albumin Level 1.8 g/dL (3.4-5.0); Alkaline Phosphatase 53 U/L (46-116); Anion Gap 8.8; Aspartate Amino Transferase 179 U/L (15-37); BUN Creatinine Ratio 18.6; Bilirubin Total 0.4 mg/dL (0.2-1.0); Calcium 6.5 mg/dL (8.5-10.1); Carbon Dioxide 34.3 mmol/L (21.0-32.0); Chloride 101 mmol/L (98-107); Estimated GFR (African America >60 (>=60); Estimated GFR (Non-African Ame 57 (>=60); Globulin 2.4 g/dL; Glucose 106 mg/dL (74-106); Sodium 142 mmol/L (136-145); Total Protein 4.2 g/dL (6.4-8.2)
--- OUTSIDE RECORDS SUMMARY | 2023-10-12 16:51 | XMS_ITS | CCD ---
Author Organization [facility] Care Team Providers Care Shrink Pit Supervisor Name Role Phone Tushar Solano Primary Care Provider UnavailHarriet Gipson Attending Provider Tushar Rodriguez Jr. Primary Care Provider AngeliaashtynWaqas Unavailable [phone] Antonio Kim Unavailable [phone] Virginia Marti Unavailable JR Tushar Solano Primary Care Provider ZAC Marti Attending Provider [phone] RUSS, DR DE Primary Care Unavailable VALONE, DR DE Consulting Unavailable VALONE, DR DE Attending Unavailable VALONE, DR DE Admitting Unavailable VALONE, DR DE Primary Care Unavailable VALONE, DR DE Consulting Unavailable VALONE, DR DE Attending Unavailable VALONE, DR DE Admitting Unavailable VALONE, DR DE Primary Care Unavailable VALONE, DR DE Consulting Unavailable VALONE, DR DE Attending Unavailable VALONE, DR DE Admitting Unavailable NIKOLSKI, DR YARY Burleson Consulting Unavailable Russ Dewey DO, Charles L Primary Care Provider NORMAN BRAGA Referring Unavailable TUSHAR SOLANO JR. Primary Care UnavailNORMAN Gordon Attending Unavailable SELF, SELF Referring Unavailable NORMAN BRAGA Attending Unavailable TUSHAR SOLANO JR. Primary Care UnavailJolie Calloway Unavailable Tushar Solano Primary Care Unavailable Rodrick Lorenzo Attending Unavailable Rodrick Lorenzo Admitting Unavailable DWAIN MILLS Attending Unavailable DWAIN MILLS Attending Unavailable DWAIN MILLS Attending Unavailable Tushar Solano MD Primary Care Provider Russ Dewey DO, Charles L Primary Care Provider GENET SMALL Attending Unavailable MARIAMA VERAS Referring Unavailable TUSHAR SOLANO JR Primary Care Unavailable Unavailable Unavailable Unavailable Allergies Allergy Classification Reported Allergen(s) Allergy Type Date of Onset Reaction(s) Facility (8 sources) atorvastatin; Translations: [atorvastatin] Drug Allergy 06-18-20 16 Hives, [facility] (8 sources) Cefadroxil; Translations: [cefadroxil] Drug Allergy 06-18-20 16 Other [facility] (9 sources) Codeine; Translations: [Codeine] Drug Allergy 10-12-19 15 Hives, Hallucinations , Rash [facility] (3 sources) Dipyridamole; Translations: [dipyridamole] Drug Allergy 05-30-20 21 Unknown Reaction [facility] (6 sources) Fenofibrate; Translations: [fenofibrate] Drug Allergy 06-18-20 16 [facility] (8 sources) fluvoxaMINE; Translations: [fluvoxamine] Drug Allergy 06-18-20 16 [facility] (8 sources) nefazodone; Translations: [nefazodone] Drug Allergy 06-18-20 16 [facility] (8 sources) Niacin; Translations: [niacin] Drug Allergy 06-18-20 16 [facility] (6 sources) Simvastatin; Translations: [simvastatin] Drug Allergy 05-30-20 21 [facility] (1 source) Aspirin / Dipyridamole Drug Allergy 07-14-19 13 [facility] (1 source) Cefadroxil Drug Allergy 10-12-19 15 [facility] (1 source) Dextroamphetamine Drug Allergy 10-12-19 15 [facility] (1 source) Fenofibrate Drug Allergy 10-12-19 15 [facility] (1 source) fluvoxaMINE Drug Allergy 10-12-19 15 [facility] (1 source) nefazodone Drug Allergy 10-12-19 15 [facility] (1 source) Niacin Drug Allergy 10-12-19 15 [facility] (1 source) Simvastatin Drug Allergy 10-12-19 15 [facility] (3 sources) Aspirin / Dipyridamole Drug Allergy 04-08-20 23 Other [facility] Work Phone: (3 sources) Fluconazole Allergy to substance 04-08-20 Rash [facility] (2 sources) Aspirin / Dipyridamole; Translations: [ASPIRIN-DIPYRIDAMOL E] Drug Allergy 06-18-20 [facility] Work Phone: (2 sources) Fenofibrate; Translations: [FENOFIBRATE MICRONIZED] Drug Allergy 06-18-20 [facility] Medications Current Medications Medication Drug Class(es) Dates Sig (Normalized) Sig (Original) acarbose 100 mg oral tablet (2 sources) alpha-Glucosidase Inhibitor Acarbose 100 MG as directed Orally Active acetaminophen 500 mg oral tablet (5 sources) take 1 tablet by mouth every eight hours as needed acetaminophen (Tylenol) 500 MG tablet Take 500 mg by mouth every 8 (eight) hours if needed. 0 Active take 1 tablet by shaun th every six hours as needed acetaminophen 500 MG tablet Take 1 table t by mouth every 6 hours as needed for Mild Pain. 0 Active ascorbic acid 1000 mg oral tablet (5 sources) Vitamin C take 1 tablet by shaun th in the morning ascorbic acid, vitamin C, (VITAMIN C) 1000 mg tablet Take 1 tablet (1,000 mg total) by mouth in the morning. 0 Active Vitamin C Active aspirin 81 mg chewable tablet (11 sources) Platelet Aggregation Inhibitor, Nonsteroidal Anti-inflammatory Drug Start: 02-16-2023 aspirin 81 mg chewable tablet Chew 1 tablet (81 mg total) and swallow in the morning. 30 tablet 11 02/16/2023 Active take 1 tablet by mouth in the mo rning aspirin 81 MG EC tablet Take 81 mg by mouth in the morning. 0 Active BABY ASPIRIN PO Take by mouth. 0 Active azelastine hydrochloride 0.5 mg/ml ophthalmic solution (1 source) Histamine-1 Receptor Antagonist take 1 drop(s) into the eye(s) in the morning azelastine (OPTIVAR) 0.05 % ophthalmic solution 1 drop in the morning and 1 drop before bedtime. 0 Active Calcium (1 source) Phosphate Binder, Calcium Calcium Active calcium citrate 1040 mg oral tablet (7 sources) Start: 4 take 250 mg by mouth once daily Calcium Citrate Active 250 MG PO Daily August 06, 2023 12:00am Start: 11-25-2022 [facility] calcium citrate 250 mg calcium tablet TAKE 2 TABLETS BY MOUTH EVERY DAY AT NOON 0 11/25/2022 Active calcium citrate (Calcitrate) 950 (200 Ca) MG tablet Take 250 mg by mouth in the morning. 0 Active Calcium Citrate 250 MG tablet Take by mouth. 0 Active cephalexin 500 mg oral capsule (2 sources) Cephalosporin Antibacterial Start: 05-20-2022 take 1 capsule by mouth every eight hours Cephalexin 500 MG 1 capsule Orally three times a day for 10 day(s) May, Active cholecalciferol 0.125 mg disintegrating oral tablet (9 sources) Vitamin D Start: 08-06-2021 cholecalciferol, vitamin D3, 125 mcg (5,000 unit) tablet,disintegr ating 125 mcg daily. 0 08/06/2021 Active Start: 08-10-2019 take 1 tablet by shaun once daily Cholecalciferol (Vitamin D3) (Vitamin D3) 2,000 unit Tablet Active 2000 UNIT PO Daily August 10, 2019 12:00am cholecalciferol (Vitamin D-3) 25 MCG tablet Take 12.5 mcg by mouth in the morning and 12.5 mcg in the evening and 12.5 mcg before bedtime. 0 Active take 1 tablet by shaun once daily cholecalciferol 25 MCG (1000 UNIT) tablet Take 1 tablet by mouth daily. 0 Active clopidogrel 75 mg oral tablet (12 sources) P2Y12 Platelet Inhibitor Start: 08-10-2019 take 1 tablet by mouth in the morning clopidogreL (PLAVIX) 75 mg tablet Take 1 tablet (75 mg total) by mouth in the morning. 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 0 Active doxycycline monohydrate 100 mg oral capsule (2 sources) Tetracycline-class Drug Start: 08-19-2023 take 1 capsule by mouth in the morning doxycycline (Monodox) 100 MG capsule Take 100 mg by mouth in the morning and 100 mg before bedtime. 0 08/19/2023 Active DULoxetine 60 mg delayed release oral capsule (12 sources) Serotonin and Norepinephrine Reuptake Inhibitor Start: 08-10-2019 take 30 mg by mouth once daily at bedtime Duloxetine Active 30 MG PO Daily at bedtime August 10, 2019 12:00am Start: 08-10-2019 take 60 mg by mouth once daily at bedtime Duloxetine Active 60 MG Oral Daily at bedtime August 10, 2019 1:38pm take 1 capsule by mo uth in the morning DULoxetine (CYMBALTA) 30 mg capsule Take 1 capsule (30 mg total) by mouth in the morning. 0 Active DULoxetine HCl A ctive ergocalciferol 1.25 mg oral capsule (2 sources) Provitamin D2 Compound take 1 capsule by mouth every week Ergocalciferol 1.25 MG (91032 UT) capsule Take 1 capsule by mouth once a week. 0 Active famotidine 20 mg oral tablet (12 sources) Histamine-2 Receptor Antagonist Start: 08-10-19 20 take 40 mg by mouth twice daily Famotidine Active 40 MG PO Twice daily August 10, 2019 12:00am Start: 08-10-2019 take 20 mg by mouth twice nina y Famotidine Active 20 MG Oral Twice daily August 10, 2019 1:38pm take 2 tablets by mo uth in the evening famotidine (PEPCID) 20 mg tablet Take 2 tablets (40 mg total) by mouth in the evening. 0 Active take 1 tablet by shaun th in the morning famotidine (Pepcid) 40 MG tablet Take 40 mg by mouth in the morning. 0 Active Famotidine Activ e take 1 tablet by shaun th every twenty-four hours Famotidine 20 MG 1 tablet at bedtime as needed Orally Once a day Active ferrous sulfate 325 mg oral tablet (6 sources) take 1 tablet by shaun th once daily at breakfast ferrous sulfate 325 (65 FE) mg tablet Take 1 tablet (325 mg total) by mouth daily with breakfast. 0 Active take 1 tablet by mouth at mealti me ferrous sulfate 325 (65 Fe) MG EC tablet Take 325 mg by mouth in the morning. Take with meals. Do not crush, chew, or split. . 0 Active take 1 tablet by shaun th three times daily at mealtime ferrous sulfate 325 (65 Fe) MG tablet Take 1 tablet by mouth 3 times daily with meals. 0 Active fexofenadine (5 sources) Histamine-1 Receptor Antagonist Katharina Active fludrocortisone acetate 0.1 mg oral tablet (8 sources) Start: take 0.1 mg by mouth once daily at lunch Fludrocortisone Active 0.1 MG PO Daily with lunch August 10, 2019 12:00am GENERIC COMPOUNDING MEDICATION (3 sources) GENERIC COMPOUND ING MEDICATION Apply topically 3 (three) times a day NIFED PHN 0 Active Ibadronate (1 source) Ibandronate Sodi um Active ibandronic acid 150 mg oral tablet (6 sources) Bisphosphonate take 1 tablet by mouth every 30 days in the morning ibandronate (BONIVA) 150 mg tablet Take 1 tablet (150 mg total) by mouth every 30 (thirty) days. Take in AM with glass of water prior to food, don't lie down for 60 minutes. 0 Active ipratropium bromide 0.021 mg/actuat metered dose nasal spray (1 source) Anticholinergic Start: 023 ipratropium (ATROVENT) 21 mcg (0.03 %) nasal spray as needed. 0 11/13/2022 Active Iron (8 sources) Start: take 1 tablet by mouth once daily Iron Active 1 TAB Oral Daily August 10, 2019 1:38pm Start: 08-10-2019 take 1 tablet by mouth once da dominick Iron Active 1 TAB PO Daily August 10, 2019 12:00am Iron Active liothyronine sodium 0.005 mg oral tablet (8 sources) l-Triiodothyronine Start: 08-06-2023 take 10 ug by mouth once daily Liothyronine Active 10 MCG PO Daily August 06, 2023 12:00am take 2 tablets by mouth in the m orning liothyronine (CYTOMEL) 5 MCG tablet Take 2 tablets (10 mcg total) by mouth in the morning. 0 Active Liothyronine Sod ium Active take 1 tablet by mouth once nina y Liothyronine 5 MCG tablet Take by mouth daily. 0 Active Loratadine (2 sources) Loratadine (JEAN RGY RELIEF 24-HR PO) Take by mouth. 0 Active meloxicam 7.5 mg oral tablet (2 sources) Nonsteroidal Anti-inflammatory Drug take 1 tablet by mouth every twenty-four hours Meloxicam 7.5 MG 1 tablet Orally Once a day Active 24 hr metoprolol succinate 25 mg extended release oral tablet (7 sources) beta-Adrenergic Ana Start: 3 take 0.5 tablet by mouth once daily as needed metoprolol succinate XL (TOPROL XL) 25 mg 24 hr tablet Take 0.5 tablets (12.5 mg total) by mouth daily as needed (for BP more than 160 mmHg). 45 tablet 3 03/19/2023 Active take 1 tablet by shaun th every twenty-four hours in the morning metoprolol succinate XL (Toprol-XL) 25 M G 24 hr tablet Take 0.5 mg by mouth in the morning. Do not crush or chew. . 0 Active Metoprolol Succi anish Active take 1 tablet by mouth twice yaneth ly Metoprolol 50 MG tab regular release Take 1 tablet by mouth 2 times daily. 0 Active midodrine hydrochloride 2.5 mg oral tablet (12 sources) alpha-Adrenergic Agonist Start: 08-10-2019 take 10 mg by mouth three times daily Midodrine Active 10 MG PO Three times daily August 10, 2019 12:00am Start: 08-10-2019 take 2.5 mg by mouth once Mido drine Active 2.5 MG Oral Once August 10, 2019 1:38pm take 1 tablet by shaun th three times daily as needed midodrine (PROAMATINE) 5 mg tablet Take 1 tablet (5 mg total) by mouth 3 (three) times a day. prn 0 Active take 1 tablet by shaun th in the morning, then take 1 tablet by mouth in the evening, then take 1 tablet by mouth at bedtime midodrine (Proamatine) 10 MG tablet Take 10 mg by mouth in the morning and 10 mg in the evening and 10 mg before bedtime. 0 Active montelukast 10 mg oral tablet (8 sources) Leukotriene Receptor Antagonist Start: 11-14-2022 take 10 mg by mouth once daily Montelukast Active 10 MG PO Daily August 06, 2023 12:00am Montelukast Sodi um Active Multiple Vitamin (multivitamin) tablet (5 sources) take 1 tablet by shaun th in the morning Multiple Vitamin (multivitamin) tablet Take 1 tablet by mouth in the morning. 0 Active take 1 tablet by mouth once nina y Multiple Vitamin (multivitamin) tablet Take 1 tablet by mouth daily. 0 Active Multiple Vitamins-Minerals (Hair Skin and Nails Formula) tablet (3 sources) take 1 tablet by mouth in the morning Multiple Vitamins-Minerals (Hair Skin and Nails Formula) tablet Take 1 tablet by mouth in the morning. 0 Active multivitamin (THERAGRAN) tablet (1 source) take 1 tablet by mouth in the morning multivitamin (THERAGRAN) tablet Take 1 tablet by mouth in the morning. 0 Active Multivitamin preparation (1 source) Multivitamin Act pool Nitro Sublingual 0.4 (1 source) Nitro Sublingual 0.4 Active nitroglycerin 0.4 mg sublingual tablet (6 sources) Nitrate Vasodilator Start: 023 nitroglycerin (NITROSTAT) 0.[address] 1 tablet (0.4 mg total) under the tongue every 5 (five) minutes as needed for chest pain. 25 tablet 0 02/16/2023 Active apply 1 dose transde rmal route once daily, then apply 1 dose transdermal route every twenty-four hours nitroGLYCERIN 0.4 MG/HR Patch [address] 1 patch on skin daily. Remove 10-12 hr/day 0 Active Nurtec (1 source) Nurtec Active omeprazole 40 mg delayed release oral capsule (7 sources) Proton Pump Inhibitor Start: 08-06-2023 take 40 mg by mouth once daily Omeprazole Active 40 MG PO Daily August 06, 2023 12:00am Omeprazole Activ e ondansetron 4 mg disintegrating oral tablet (9 sources) Serotonin-3 Receptor Antagonist Start: 05-27-2020 take 1 tablet by mouth every eight hours as needed Ondansetron 4 MG 1 tablet on the tongue and allow to dissolve Orally every 8 hours as needed for 3 days May, Active take 1 tablet by shaun th every eight hours as needed for nausea and vomiting ondansetron (ZOFRAN) 4 mg tablet Take 1 tablet (4 mg total) by mouth every 8 (eight) hours as needed for nausea or vomiting. 0 Active Zofran Active pantoprazole 40 mg delayed release oral tablet (1 source) Proton Pump Inhibitor take 1 tablet by mouth before breakfast pantoprazole (PROTONIX) 40 mg EC tablet Take 1 tablet (40 mg total) by mouth in the morning. 30 MINS BEFORE BREAKFAST. 0 Active pregabalin 50 mg oral capsule (8 sources) Start: take 50 mg by mouth twice daily Pregabalin Active 50 MG PO Twice daily August 06, 2023 12:00am Pregabalin Activ e take 1 capsule by mo uth three times daily Pregabalin 50 MG capsule Take 1 capsule by mouth 3 times daily. 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 180 tablet 3 03/05/2023 Active take 1 tablet by shaun th every twelve hours in the morning ranolazine (Ranexa) 500 MG 12 hr tablet Take 500 mg by mouth in the morning and 500 mg before bedtime. Do not crush, chew, or split. . 0 Active Ranolazine ER Ac tive take 1 tablet by shaun th twice daily Ranolazine 500 MG Tab SR 12 HR tablet Take 1 tablet by mouth 2 times daily. 0 Active rimegepant 75 mg disintegrating oral tablet (7 sources) Start: 08-06-2023 take 1 tablet by mouth every other day Rimegepant (Nurtec Odt) 75 mg tablet,disintegrating Active 75 MG PO Q2D August 06, 2023 12:00am take 1 tablet by mouth once Rime gepant Sulfate (Nurtec) 75 MG tablet dispersible Take 75 mg by mouth 1 (one) time if needed (take as directed). 0 Active rosuvastatin calcium 20 mg oral tablet (16 sources) HMG-CoA Reductase Inhibitor Start: 08-10-2019 take 20 mg by mouth once daily at bedtime Rosuvastatin Active 20 MG PO Daily at bedtime August 10, 2019 12:00am Rosuvastatin Sloan cium 20 MG Cap Sprinkle Take by mouth. 0 Active Rosuvastatin Sloan cium Active sucralfate 1000 mg oral tablet (12 sources) Aluminum Complex Start: 08-06-2021 take 1 g by mouth twice daily Sucralfate Active 1 GM PO Twice daily August 06, 2023 12:00am take 1 tablet by mouth every eig ht hours Sucralfate 1 GM 1 tablet on an empty stomach Orally tid Active take 1 tablet by mouth every six hours Sucralfate 1 g tablet Take 1 tablet by mouth every 6 hours. 0 Active take 1 tablet by mouth every eig ht hours Sucralfate 1 GM 1 tablet on an empty stomach Orally tid Active torsemide 20 mg oral tablet (8 sources) Loop Diuretic Start: 08-06-2023 take 20 mg by mouth once daily Torsemide Active 20 MG PO Daily August 06, 2023 12:00am Demadex Active Torsemide (DEMAD EX PO) Take by mouth. 0 Active traZODone hydrochloride 150 mg oral tablet (14 sources) Serotonin Reuptake Inhibitor Start: 08-10-2019 take 150 mg by mouth once daily at bedtime Trazodone Active 150 MG PO Daily at bedtime August 10, 2019 12:00am take 1 tablet by mouth at bedtim e traZODone 50 MG tablet Take 1 tablet by mouth At bedtime. 0 Active vitamin b12 1 mg oral tablet (7 sources) Vitamin B12 take 1 tablet by mouth in the morning cyanocobalamin (vitamin B-12) 1000 MCG tablet Take 1 tablet (1,000 mcg total) by mouth in the morning. 0 Active Vitamin B12 Acti ve Cyanocobalamin ( Vitamin B 12) 100 MCG Lozenge Take by mouth. 0 Active Vitamin D3 (3 sources) Vitamin D3 Activ e Completed/Discontinued Medications Medication Drug Class(es) Dates Sig (Normalized) Sig (Original) Amylases / Endopeptidases / Lipase (3 sources) Zenpep Not-Takin g/PRN Zenpep Active calcium carbonate 1500 mg oral tablet (4 sources) Start: 08-10-2019 End: 08-06-2023 take 1 tablet by mouth once daily Calcium Carbonate (Calcium 600) 600 mg calcium (1,500 mg) Tablet Discontinued 600 MG PO Daily August 10, 2019 12:00am August 06, 2023 11:28am take 500 mg by mouth once daily calcium carbonate (CALCIUM 500 ORAL) Take 500 mg by mouth daily. 0 Active lansoprazole 30 mg delayed release oral capsule (3 sources) Proton Pump Inhibitor Start: 08-10-2019 End: 08-06-2023 take 30 mg by mouth once daily in the morning Lansoprazole Discontinued 30 MG PO Every morning August 10, 2019 12:00am August 06, 2023 11:31am naproxen 500 mg oral tablet (3 sources) Nonsteroidal Anti-inflammatory Drug Start: 08-10-2019 End: 08-06-2023 take 500 mg by mouth twice daily Naproxen Discontinued 500 MG PO Twice daily August 10, 2019 12:00am August 06, 2023 11:31am Problems Active Problems Problem Classification Problem Date Documented Date Episodic/Chronic Acute cerebrovascular disease (2 sources) Cerebrovascular accident; Translations: [Cerebral infarction, unspecified] Onset: 08-21-2023 08-21-2023 Chronic Cardiac and circulatory congenital anomalies (2 sources) Bicuspid aortic valve; Translations: [Congenital insufficiency of aortic valve] Onset: 10-10-2021 10-10-2021 Chronic Chronic kidney disease (2 sources) Chronic kidney disease; Translations: [Chronic kidney disease, unspecified] Onset: 08-21-2023 08-21-2023 Chronic Chronic ulcer of skin (1 source) Ischemic ulcer of toe; Translations: [Non-pressure chronic ulcer of other part of right foot with necrosis of muscle] 08-21-2023 Chronic Complication of device; implant or graft (1 source) Arteriosclerosis of coronary artery bypass graft; Translations: [Atherosclerosis of coronary artery bypass graft(s) without angina pectoris] 03-05-2023 Chronic Conduction disorders (2 sources) Cardiac pacemaker in situ; Translations: [Presence of cardiac pacemaker] Onset: 08-21-2023 08-21-2023 Chronic Congestive heart failure; nonhypertensive (2 sources) Unspecified systolic (congestive) heart failure; Translations: [Unspecified combined systolic (congestive) and diastolic (congestive) heart failure] Onset: 07-21-2022 Chronic Coronary atherosclerosis and other heart disease (2 sources) Coronary arteriosclerosis; Translations: [Atherosclerotic heart disease of cabazon coronary artery without angina pectoris] Onset: 10-19-2020 03-05-2023 Chronic Coronary atherosclerosis and other heart disease (1 source) Coronary atherosclerosis and other heart disease; Translations: [Atherosclerosis of cabazon arteries of right leg with ulceration of other part of foot] Onset: 08-06-2023 Deficiency and other anemia (4 sources) Iron deficiency anemia, unspecified; Translations: [IRON DEFICIENCY ANEMIA UNSPECIFIED] Onset: 10-15-2022 Episodic Diabetes mellitus without complication (4 sources) Type 2 diabetes mellitus without complications; Translations: [TYPE 2 DM WITHOUT COMPLICATIONS] Onset: 07-16-2022 Chronic Disorders of lipid metabolism (3 sources) Hyperlipidemia, unspecified; Translations: [Pure hypercholesterolemia, unspecified] Onset: 10-19-2020 03-05-2023 Chronic Esophageal disorders (3 sources) Ulcerative esophagitis; Translations: [Ulcer of esophagus without bleeding] Chronic Essential hypertension (3 sources) Essential hypertension; Translations: [Essential (primary) hypertension] Onset: 10-19-2020 08-21-2023 Chronic Gangrene (4 sources) Gangrenous disorder; Translations: [Gangrene, not elsewhere classified] Episodic Gastroduodenal ulcer (except hemorrhage) (3 sources) Gastric erosion; Translations: [Gastric ulcer, unspecified as acute or chronic, without hemorrhage or perforation] Chronic Heart valve disorders (1 source) Aortic incompetence, non-rheumatic ; Translations: [Nonrheumatic aortic (valve) insufficiency] Onset: 01-01-2023 01-01-2023 Chronic Nausea and vomiting (8 sources) Nausea and vomiting; Translations: [Nausea with vomiting, unspecified] Onset: 04-12-2021 Resolved: 04-12-2021 Episodic Nutritional deficiencies (1 source) Vitamin D deficiency, unspecified; Translations: [VITAMIN D DEFICIENCY UNSPECIFIED] Onset: 07-21-2022 Chronic Occlusion or stenosis of precerebral arteries (3 sources) Left carotid artery stenosis; Translations: [Occlusion and stenosis of left carotid artery] Onset: 01-01-2023 10-06-2023 Chronic Open wounds of extremities (2 sources) Laceration without foreign body of right forearm, initial encounter Episodic Other aftercare (1 source) Other meterman (current) drug therapy; Translations: [[employer] [place] CURRENT DRUG THERAPY] Onset: 07-21-2022 Episodic Other circulatory disease (1 source) History of cardiovascular surgery; Translations: [Presence of other cardiac implants and grafts] Onset: 06-16-2017 07-23-2017 Chronic Other connective tissue disease (2 sources) Pain in right hand Episodic Other connective tissue disease (1 source) Pain of toe of right foot; Translations: [Pain in right toe(s)] 08-21-2023 Episodic Other non-traumatic joint disorders (3 sources) Pain in left knee; Translations: [Pain in joint, lower leg] Onset: 06-25-2023 06-18-2023 Episodic Zeenat-; endo-; and myocarditis; cardiomyopathy (except that caused by tuberculosis or sexually transmitted disease) (1 source) Cardiomyopathy; Translations: [Cardiomyopathy, unspecified] Onset: 01-27-2023 03-05-2023 Chronic Peripheral and visceral atherosclerosis (3 sources) Peripheral vascular disease, unspecified; 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 Residual codes; unclassified (1 source) Other specified health status Episodic Superficial injury; contusion (7 sources) Contusion of rib; Translations: [Contusion of left front wall of thorax, initial encounter] Episodic Thyroid disorders (1 source) Hypothyroidism, unspecified; Translations: [HYPOTHYROIDISM UNSPECIFIED] Onset: 10-19-2022 Chronic Tuberculosis (1 source) Personal history of tuberculosis; Translations: [PERSONAL HISTORY OF TUBERCULOSIS] Onset: 07-21-2022 Episodic Past or Other Problems Problem Classification Problem Date Documented Da te Episodic/Chronic Abdominal pain (1 source) Epigastric pain; Translations: [Epigastric pain R10.13] Onset: 04-12-2021 Resolved: 04-12-2021 Episodic Nonspecific chest pain (1 source) Chest discomfort; Translations: [Other chest pain] Onset: 01-27-2023 Resolved: 03-05-2023 03-05-2023 Episodic Other circulatory disease (1 source) Low blood pressure; Translations: [Hypotension, unspecified] Onset: 01-27-2023 01-27-2023 Episodic Other lower respiratory disease (1 source) Dyspnea; Translations: [Shortness of breath] Onset: 01-27-2023 01-27-2023 Episodic Other screening for suspected conditions (not mental disorders or infectious disease) (5 sources) Encounter for screening mammogram for malignant neoplasm of breast; Translations: [Cardiovascular stress test abnormal] Onset: 10-19-2020 Episodic Results Test Name Value Interpretation Reference Range Facility US Carotid arteries - bilate ralon 10-06-2023 Previous: Previous c arotid duplex exam performed 02/03/2023. Bilateral: <50% ICA stenosis. Right: Plaque with no significant ICA spectral Doppler or color flow disturbances; ICA 116/35 cm/sec. Antegrade vertebral artery flow. Left: Plaque with no significant ICA spectral Doppler or color flow disturbances; ICA 135/25 cm/sec. Antegrade vertebral artery flow. Conclusions: BILATERAL: Plaque without significant stenosis (<50%) of the internal carotid artery. Antegrade vertebral artery flow.When compared to previous report no significant changes were noted. Sal Soliman M D - 10/06/2023 Previous: Previous carotid duplex exam performed 02/03/2023. Bilateral: <50% ICA stenosis. Right: Plaque with no significant ICA spectral Doppler or color flow disturbances; ICA 116/35 cm/sec. Antegrade vertebral artery flow. Left: Plaque with no significant ICA spectral Doppler or color flow disturbances; ICA 135/25 cm/sec. Antegrade vertebral artery flow. Conclusions: BILATERAL: Plaque without significant stenosis (<50%) of the internal carotid artery. Antegrade vertebral artery flow.When compared to previous report no significant changes were noted. [facility] Radiology Study observation (narrative) [employer] [facility] US Carotid arteries - bilate ralOrdered By: Sal Morris on 10-06-2023 [employer] Work Phone: Blood Urea Nitrogenon 2023 Urea nitrogen [Mass/Vol] 24 mg/dL Normal 02-04 [facility] Comment on above: Performed By: #### B UN, CREAT #### [place] [id number] [place] Creatinineon 08-06-2023 Creatinine [Mass/Vol] 1.07 mg/dL Normal 0.60-1.20 [facility] Comment on above: Performed By: #### B UN, CREAT #### [facility] [address] Creatinine Clr Calc Pharmacy 43.30 Normal [facility] Comment on above: Result Comment: PERF ORMED BY: [place] [address] PATHOLOGIST CASTING SUPERVISOR LAURE BRANHAM M.D. Performed By: #### B UN, CREAT #### [address] GFR/1.73 sq M.predicted MDRD (S/P/Bld) [Vol rate/Area] 56.229 mL/min/{1.73_m2} Normal [facility] Comment on above: Performed By: #### B UN, CREAT #### [address] BNPon 10-15-2022 Natriuretic peptide B (Bld) [Mass/Vol] 732.0 pg/mL Normal <=900.0 [facility] Comment on above: Performed By: #### C CONNER, ELEC, BNP, BUN, TSH #### [facility] [address] [address] [address] Feliz Hilton BUNon 10-15-2022 Urea nitrogen [Mass/Vol] 31.0 mg/dL Critically high 7.0-18.0 [facility] Comment on above: Performed By: #### C CONNER, ELEC, BNP, BUN, TSH #### [facility] [address] [address] [address] Feliz Hilton CBC AUTO DIFFon 10-15-2022 BASO # 0.0 103/ul Normal 0.0-0.1 [facility] Comment on above: Performed By: #### C BC ####[facility] [address] [place] [address]Dr. Feliz Hilton Basophils/100 WBC (Bld) 0.8 % Normal 0.2-2.0 [facility] Comment on above: Performed By: #### C BC ####[facility] [address] [place], [place] [address]Dr. Feliz Hilton EO # 0.1 103/ul Normal 0.0-0.7 [facility] Comment on above: Performed By: #### C BC ####[facility] [address] [place], [place] [address]Dr. Feliz Hilton Eosinophils/100 WBC (Bld) 2.3 % Normal 0.9-7.0 [facility] Comment on above: Performed By: #### C BC ####[facility] O[address] [place], [place] [address]Dr. Feliz Hilton Erythrocyte distribution width (RBC) [Ratio] 19.8 % Critically high 11.0-15.0 [facility] Comment on above: Performed By: #### C BC ####[facility] [address] [place], [place] [address]Dr. Feliz Hilton Hematocrit (Bld) [Volume fraction] 36.1 % Normal 36.0-48.0 [facility] Comment on above: Performed By: #### C BC ####[facility] [address] [place], [place] [address]Dr. Feliz Hilton Hemoglobin (Bld) [Mass/Vol] 11.1 g/dL Critically low 12.0-16.0 [facility] Comment on above: Performed By: #### C BC ####[facility] [address] [place], [place] [address]Dr. Feliz Hilton IG # 0.01 10e3/ul Normal 0.00-0.03 [facility] Comment on above: Performed By: #### C BC ####[facility] [address] [place], [place] [address]Dr. Feliz Hilton IG % 0.2 % Normal 0.0-0.5 [facility] Comment on above: Performed By: #### C BC ####[facility] [address] [place], [place] [address]Dr. Feliz Hilton LYMPH # 2.1 103/ul Normal 1.2-3.8 [facility] Comment on above: Performed By: #### C BC ####[facility] [address] [place] [address]Dr. Feliz Hilton Lymphocytes/100 WBC (Bld) 43.1 % Normal 20.5-60.0 [facility] Comment on above: Performed By: #### C BC ####[facility] Le[address]qi[address] [place], [place] [address]Dr. Feliz Hilton MANUAL DIFF REQ NO Normal [facility] Comment on above: Performed By: #### C BC ####[facility] [address] [place] [address]Dr. Feliz Hilton MCH (RBC) [Entitic mass] 28.7 pg Normal 26.7-34.0 [facility] Comment on above: Performed By: #### C BC ####[facility] [address] [place], [place] [address]Dr. Feliz Hilton MCHC (RBC) [Mass/Vol] 30.7 g/dL Normal 29.9-35.2 [facility] Comment on above: Performed By: #### C BC ####[facility] [address] [place], [place] [address]Dr. Feliz Hilton MCV (RBC) [Entitic vol] 93.3 fL Normal 81.0-99.0 [facility] Comment on above: Performed By: #### C BC ####[facility] [address] [place], [place] [address]Dr. Feliz Hilton MONO # 0.4 103/ul Normal 0.3-0.8 [facility] Comment on above: Performed By: #### C BC ####[facility] [address] [place], [place] [address]Dr. Feliz Hilton Monocytes/100 WBC (Bld) 9.0 % Normal 1.7-12.0 [facility] Comment on above: Performed By: #### C BC ####[facility] [address] [place], [place] [address]Dr. Feliz Hilton NEUT # 2.1 103/ul Normal 1.4-6.5 [facility] Comment on above: Performed By: #### C BC ####[facility] [address] [place] [address]DrJuan F Hilton Neutrophils/100 WBC (Bld) 44.6 % Normal 43.0-75.0 [facility] Comment on above: Performed By: #### C BC ####[facility] [address] [place] [address]DrJuan F Hilton Platelet mean volume (Bld) [Entitic vol] 9.5 fL Normal 9.5-13.5 [facility] Comment on above: Performed By: #### C BC ####[facility] [address] [place] [address]DrJuan F Hilton PLT 273 103/ul Normal 150-450 [facility] Comment on above: Performed By: #### C BC ####[facility] [address] [place] [address]DrJuan F Hilton RBC 3.87 106/ul Critically low 4.20-5.40 [facility] Comment on above: Performed By: #### C BC ####[facility] [address] [place] [address]DrJuan F Hilton WBC 4.8 103/ul Normal 4.0-11.0 [facility] Comment on above: Performed By: #### C BC ####[facility] [address] [place] [address]DrJuan F Hilton CREATININEon 10-15-2022 Creatinine [Mass/Vol] 1.02 mg/dL Normal 0.55-1.02 [facility] Comment on above: Performed By: #### C CONNER, ELEC, BNP, BUN, TSH #### [facility] [address] [address] [address] Feliz Hilton EGFR-AF SYRIAN >60 Normal >=60 [facility] Comment on above: Performed By: #### C CONNER, ELEC, BNP, BUN, TSH #### [facility] [address] [address] [address] Feliz Hilton EGFR-NON AF SYRIAN 54 mL/min/1.73m2 Critically low >=60 [facility] Comment on above: Performed By: #### C CONNER, ELEC, BNP, BUN, TSH #### [facility] [address] [place] [address] Dr. Feliz Hilton ELECTROLYTESon 10-15-2022 Anion gap [Moles/Vol] 14.7 mmol/L Normal [facility] Comment on above: Performed By: #### C CONNER, ELEC, BNP, BUN, TSH #### [facility] [address] [place] [address] Dr. Feliz Hilton Chloride [Moles/Vol] 109 mmol/L Critically high 98-107 [facility] Comment on above: Performed By: #### C CONNER, ELEC, BNP, BUN, TSH #### [facility] [address] [place] [address] Dr. Feliz Hilton CO2 [Moles/Vol] 20.6 mmol/L Critically low 21.0-32.0 [facility] Comment on above: Performed By: #### C CONNER, ELEC, BNP, BUN, TSH #### [facility] [address] [place] [address] Dr. Feliz Hilton Potassium [Moles/Vol] 5.3 mmol/L Critically high 3.5-5.1 [facility] Comment on above: Performed By: #### C CONNER, ELEC, BNP, BUN, TSH #### [facility] [address] [place] [address] Dr. Feliz Hilton Sodium [Moles/Vol] 139 mmol/L Normal 136-145 [facility] Comment on above: Performed By: #### C CONNER, ELEC, BNP, BUN, TSH #### [facility] [address] [place] [address] Dr. Feliz Hilton TSHon 10-15-2022 TSH 3.265 uIU/mL Normal 0.358-3.740 [facility] Comment on above: Performed By: #### C CONNER, ELEC, BNP, BUN, TSH #### [facility] [address] [place], [place] [id number] Dr. Feliz Hilton BNPon 07-16-2022 Natriuretic peptide B (Bld) [Mass/Vol] 1093.0 pg/mL Critically high <=900.0 [facility] Comment on above: Performed By: #### T SH, LIPID, ELEC, LIVER, CREA, BUN, BNP ####[facility] [address] [place] [address]Dr. Feliz Hilton BUNon 07-16-2022 Urea nitrogen [Mass/Vol] 23.0 mg/dL Critically high 7.0-18.0 [facility] Comment on above: Performed By: #### T SH, LIPID, ELEC, LIVER, CREA, BUN, BNP ####[facility] [address] [place] [address]Dr. Feliz Hilton CBC AUTO DIFFon 07-16-2022 BASO # 0.1 103/ul Normal 0.0-0.1 [facility] Comment on above: Performed By: #### C BC #### [facility] [address] [place] [address] Dr. Feliz Hilton Basophils/100 WBC (Bld) 1.3 % Normal 0.2-2.0 [facility] Comment on above: Performed By: #### C BC #### [facility] [address] [place] [address] Dr. Feliz Hilton EO # 0.3 103/ul Normal 0.0-0.7 [facility] Comment on above: Performed By: #### C BC #### [facility] [address] [place] [address] Dr. Feliz Hilton Eosinophils/100 WBC (Bld) 7.2 % Critically high 0.9-7.0 [facility] Comment on above: Performed By: #### C BC #### [facility] [address] [place] [address] Dr. Feliz Hilton Erythrocyte distribution width (RBC) [Ratio] 23.4 % Critically high 11.0-15.0 [facility] Comment on above: Performed By: #### C BC #### [facility] [address] [place] [address] Dr. Feliz Hilton Hematocrit (Bld) [Volume fraction] 30.8 % Critically low 36.0-48.0 [facility] Comment on above: Performed By: #### C BC #### [facility] [address] [place] [address] Dr. Feliz Hilton Hemoglobin (Bld) [Mass/Vol] 9.1 g/dL Critically low 12.0-16.0 [facility] Comment on above: Performed By: #### C BC #### [facility] [address] [place] [address] Dr. Feliz Hilton IG # 0.01 10e3/ul Normal 0.00-0.03 [facility] Comment on above: Performed By: #### C BC #### [facility] [address] [place] [address] Dr. Feliz Hilton IG % 0.3 % Normal 0.0-0.5 [facility] Comment on above: Performed By: #### C BC #### [facility] [address] [place] [address] Dr. Feliz Hilton LYMPH # 1.5 103/ul Normal 1.2-3.8 [facility] Comment on above: Performed By: #### C BC #### [facility] [address] [place] [address] Dr. Feliz Hilton Lymphocytes/100 WBC (Bld) 37.3 % Normal 20.5-60.0 [facility] Comment on above: Performed By: #### C BC #### [facility] [address] [place] [address] Dr. Feliz Hilton MANUAL DIFF REQ NO Normal [facility] Comment on above: Performed By: #### C BC #### [facility] [address] [place] [address] Dr. Feliz Hilton MCH (RBC) [Entitic mass] 23.9 pg Critically low 26.7-34.0 [facility] Comment on above: Performed By: #### C BC #### [facility] [address] [place] [address] Dr. Feliz Hilton MCHC (RBC) [Mass/Vol] 29.5 g/dL Critically low 29.9-35.2 [facility] Comment on above: Performed By: #### C BC #### [facility] [address] [address] [address] Feliz Hilton MCV (RBC) [Entitic vol] 81.1 fL Normal 81.0-99.0 [facility] Comment on above: Performed By: #### C BC #### [facility] [address] [address] [address] Feliz Hilton MONO # 0.4 103/ul Normal 0.3-0.8 [facility] Comment on above: Performed By: #### C BC #### [facility] [address] [place] [address] Dr. Feliz Hilton Monocytes/100 WBC (Bld) 10.3 % Normal 1.7-12.0 [facility] Comment on above: Performed By: #### C BC #### [facility] [address] [place] [address] Dr. Feliz Hilton NEUT # 1.7 103/ul Normal 1.4-6.5 [facility] Comment on above: Performed By: #### C BC #### [facility] [address] [place] [address] Dr. Feliz Hilton Neutrophils/100 WBC (Bld) 43.6 % Normal 43.0-75.0 [facility] Comment on above: Performed By: #### C BC #### [facility] [address] [address] [address] Feliz Hilton Platelet mean volume (Bld) [Entitic vol] 9.0 fL Critically low 9.5-13.5 [facility] Comment on above: Performed By: #### C BC #### [facility] [address] [place] [address] Dr. Feliz Hilton PLT 285 103/ul Normal 150-450 [facility] Comment on above: Performed By: #### C BC #### [facility] [address] [place] [address] Dr. Feliz Hilton RBC 3.80 106/ul Critically low 4.20-5.40 [facility] Comment on above: Performed By: #### C BC #### [facility] [address] [address] [address] Feliz Hilton WBC 3.9 103/ul Critically low 4.0-11.0 [facility] Comment on above: Performed By: #### C BC #### [facility] [address] [address] [address] Feliz Hilton CREATININEon 07-16-2022 Creatinine [Mass/Vol] 0.87 mg/dL Normal 0.55-1.02 [facility] Comment on above: Performed By: #### T SH, LIPID, ELEC, LIVER, CREA, BUN, BNP ####[facility] [address] [place] [address]DrJuan F Hilton EGFR-AF SYRIAN >60 Normal >=60 [facility] Comment on above: Performed By: #### T SH, LIPID, ELEC, LIVER, CREA, BUN, BNP ####[facility] [address] [place] [address]DrJuan F Hilton EGFR-NON AF SYRIAN >60 Normal >=60 [facility] Comment on above: Performed By: #### T SH, LIPID, ELEC, LIVER, CREA, BUN, BNP ####[facility] [address] [place] [address]Dr. Feliz Hilton D-DIMERon 07-16-2022 D-DIMER 0.89 mg/L FEU Critically high <=0.59 [facility] Comment on above: Performed By: #### D DIM #### [facility] [address] [address] [address] Feliz Hilton D-DIMER COMMENTS SEE BELOW Normal [facility] Comment on above: Result Comment: Incr eases in D-Dimer concentration observed with thromboembolic events can be variable due to localization, size, and age of the thrombus. Therefore, a thromboembolic event cannot be diagnosed with certainty on the basis of the reference range. D-Dimers may also be elevated for a variety of disorders including: advanced age, , coronary disease, cancer, liver disease, infection, inflammation, hematoma, DIC, trauma, post-surgery, diabetes, thrombolytic or anticoagulant therapy, stress, and generalized hospitalization. Performed By: #### D DIM #### [facility] [address] [address] [address] Feliz Hilton ELECTROLYTESon 07-16-2022 Anion gap [Moles/Vol] 13.9 mmol/L Normal [facility] Comment on above: Performed By: #### T SH, LIPID, ELEC, LIVER, CREA, BUN, BNP ####[facility] [address] [place] [address]Dr. Feliz Hilton Chloride [Moles/Vol] 111 mmol/L Critically high 98-107 [facility] Comment on above: Performed By: #### T SH, LIPID, ELEC, LIVER, CREA, BUN, BNP ####[facility] [address] [place] [address]Dr. Feliz Hilton CO2 [Moles/Vol] 21.4 mmol/L Normal 21.0-32.0 [facility] Comment on above: Performed By: #### T SH, LIPID, ELEC, LIVER, CREA, BUN, BNP ####[facility] [address] [place] [address]Dr. Feliz Hilton Potassium [Moles/Vol] 4.3 mmol/L Normal 3.5-5.1 [facility] Comment on above: Performed By: #### T SH, LIPID, ELEC, LIVER, CREA, BUN, BNP ####[facility] [address] [place] [address]Dr. Feliz Hilton Sodium [Moles/Vol] 142 mmol/L Normal 136-145 [facility] Comment on above: Performed By: #### T SH, LIPID, ELEC, LIVER, CREA, BUN, BNP ####[facility] [address] [place] [address]DrJuan F Hilton GLYCOHEMOGLOBIN A1Con 2022 ADA RECOMMENDATION SEE BELOW Normal [facility] Comment on above: Result Comment: ADA RECOMMENDED LIMIT 4.0 - 6.0 ADA THERAPEUTIC TARGET < 7.0 ACTION SUGGESTED > 7.0 Performed By: #### A 1C ####[facility] [address] [place], [place] [address]WgJuan F Hilton Glucose [Mass/Vol] 120 mg/dL Normal [facility] Comment on above: Performed By: #### A 1C ####[facility] [address] [place], [place] [address]JkJuan F Hilton HbA1c (Bld) [Mass fraction] 5.8 % Normal 4.5-6.2 [facility] Comment on above: Performed By: #### A 1C ####[facility] [address] [place] [id number]. Feliz Hilton LIPID PROFILEon 07-16-2022 CHOL-HDL RATIO NORM SEE BELOW Normal [facility] Comment on above: Result Comment: 3.3 - 4.4 LOW RISK 4.4 - 7.1 AVERAGE RISK 7.1 - 11.0 MODERATE RISK >11.0 HIGH RISK Performed By: #### T SH, LIPID, ELEC, LIVER, CREA, BUN, BNP #### [facility] [address] [address] [address] Feliz Hilton Cholesterol [Mass/Vol] 107 mg/dL Normal <=200 [facility] Comment on above: Performed By: #### T SH, LIPID, ELEC, LIVER, CREA, BUN, BNP #### [facility] [address] [address] [address] Feliz Hilton Cholesterol in HDL [Mass/Vol] 52 mg/dL Normal 40-60 [facility] Comment on above: Performed By: #### T SH, LIPID, ELEC, LIVER, CREA, BUN, BNP #### [facility] [address] [address] [address] Feliz Hilton Cholesterol in LDL [Mass/Vol] 30.2 mg/dL Normal [facility] Comment on above: Performed By: #### T SH, LIPID, ELEC, LIVER, CREA, BUN, BNP #### [facility] [address] [address] [address] Feliz Hilton Cholesterol.total/ Cholesterol in HDL [Mass ratio] 2.1 {ratio} Normal [facility] Comment on above: Performed By: #### T SH, LIPID, ELEC, LIVER, CREA, BUN, BNP #### [facility] [address] [address] [address] Feliz Hilton HDL NORMAL > or = 60 mg/dl - LO W CARDIOVASCULAR RISK <40 mg/dl - HIGH CARDIOVASCULAR RISK Normal [facility] Comment on above: Performed By: #### T SH, LIPID, ELEC, LIVER, CREA, BUN, BNP #### [facility] [address] [address] [address] Feliz Hilton LDL CALC NORMAL SEE BELOW Normal [facility] Comment on above: Result Comment: <100 mg/dl OPTIMAL 100 - 129 mg/dl NEAR OR ABOVE OPTIMAL 130 - 159 mg/dl BORDERLINE HIGH 160 - 189 mg/dl HIGH >190 mg/dl VERY HIGH Performed By: #### T SH, LIPID, ELEC, LIVER, CREA, BUN, BNP #### [facility] [address] [place] [address] Dr. Feliz Hilton Triglyceride [Mass/Vol] 124 mg/dL Normal <=150 [facility] Comment on above: Performed By: #### T SH, LIPID, ELEC, LIVER, CREA, BUN, BNP #### [facility] [address] [place] [address] Dr. Feliz Hilton VLDL CALC 24.8 mg/dL Normal [facility] Comment on above: Performed By: #### T SH, LIPID, ELEC, LIVER, CREA, BUN, BNP #### [facility] [address] [place] [address] Dr. Feliz Hilton LIVER PROFILEon 07-16-2022 Albumin [Mass/Vol] 2.6 g/dL Critically low 3.4-5.0 Th e [facility] Comment on above: Performed By: #### T SH, LIPID, ELEC, LIVER, CREA, BUN, BNP #### [facility] [address] [place] [address] Dr. Feliz Hilton Albumin/Globulin [Mass ratio] 0.8 {ratio} Normal [facility] Comment on above: Performed By: #### T SH, LIPID, ELEC, LIVER, CREA, BUN, BNP #### [facility] [address] [place] [address] Dr. Feliz Hilton ALP [Catalytic activity/Vol] 63 U/L Normal 46-116 [facility] Comment on above: Performed By: #### T SH, LIPID, ELEC, LIVER, CREA, BUN, BNP #### [facility] [address] [place] [address] Dr. Feliz Hilton ALT [Catalytic activity/Vol] 18 U/L Normal 14-59 [facility] Comment on above: Performed By: #### T SH, LIPID, ELEC, LIVER, CREA, BUN, BNP #### [facility] [address] [place] [address] Dr. Feliz Hilton AST [Catalytic activity/Vol] 23 U/L Normal 15-37 [facility] Comment on above: Performed By: #### T SH, LIPID, ELEC, LIVER, CREA, BUN, BNP #### [facility] [address] [place] [address] Dr. Feliz Hilton BILI, CONJUGATED 0.1 mg/dL Normal 0.0-0.2 [facility] Comment on above: Performed By: #### T SH, LIPID, ELEC, LIVER, CREA, BUN, BNP #### [facility] [address] [place] [address] Dr. Feliz Hilton Bilirubin [Mass/Vol] 0.1 mg/dL Critically low 0.2-1.0 [facility] Comment on above: Performed By: #### T SH, LIPID, ELEC, LIVER, CREA, BUN, BNP #### [facility] [address] [place] [address] Dr. Feliz Hilton Globulin (S) [Mass/Vol] 3.1 g/dL Normal [facility] Comment on above: Performed By: #### T SH, LIPID, ELEC, LIVER, CREA, BUN, BNP #### [facility] [address] [place] [address] Dr. Feliz Hilton Protein [Mass/Vol] 5.7 g/dL Critically low 6.4-8.2 [facility] Comment on above: Performed By: #### T SH, LIPID, ELEC, LIVER, CREA, BUN, BNP #### [facility] [address], [place] [address] Dr. Feliz Hilton SED RATE WESTERGRENon 2022 SED RATE 14 mm/hr Normal <=30 [facility] Comment on above: Performed By: #### S EDR ####[facility] [address] [place] [address]DrJuan F Hilton TSHon 07-16-2022 TSH 5.167 uIU/mL Critically high 0.358-3.740 [facility] Comment on above: Performed By: #### T SH, LIPID, ELEC, LIVER, CREA, BUN, BNP ####[facility] [address] [place] [id number] F Hilton VITAMIN D 25 OHon 07-16-2022 VIT D 25-OH 22.4 ng/mL Normal [facility] Comment on above: Performed By: #### V ITAD ####[facility] [address] [place] [id number] F Hilton VIT D RANGES SEE BELOW Normal [facility] Comment on above: Result Comment: <20 ng/mL Vit D deficient 20 - <30 ng/mL Vit D insufficient 30 - 100 ng/mL Vit D sufficient >100 ng/mL Potential Toxicity Performed By: #### V ITAD ####[facility] [address] [place] [address]Dr. Feliz Hilton MG MAMM SCREEN 3D RELL CADon 06-14-2022 MG MAMM SCREEN 3D RELL CAD Patient: ASHVIN RENE Exam Date: 06/14/2022 : 1955 Gender:F Ordering : DR TUSHAR SOLANO D.O. Admission #: [id number] Family : Order #: [id number] CLICK HERE TO VIEW EXAM RADIOLOGY REPORT PROCEDURE: MAMMOGRAM SCREENING 3D BILATERAL CAD COMPARISON: MG MAMM RELL SCRN W CAD DIG, 05/17/2014. MAMMO RELL SCREEN W CAD DIG, 06/18/2012. INDICATIONS: Screening mammography Calculator Name NCI Breast Cancer Risk Assessment Tool 5 Year Breast Cancer Risk 1.40% Lifetime Breast Cancer Risk 4.40% Personal Breast Cancer No Personal Ovarian Cancer No Treatments None Family Cancers None LOCATION: [facility] BREAST COMPOSITION: Scattered areas fibroglandular density. FINDINGS: DIAGNOSTIC CATEGORY 2--BENIGN FINDING. NO CHANGE FROM COMPARISON. Progression of vascular calcifications. Scattered benign-appearing calcifications are present. RIGHT BREAST: No significant suspicious finding. LEFT BREAST: No significant suspicious finding. RECOMMENDATIONS: ROUTINE MAMMOGRAM AND CLINICAL EVALUATION IN 12 MONTHS. PLEASE NOTE: A NORMAL MAMMOGRAM DOES NOT EXCLUDE THE POSSIBILITY OF BREAST CANCER. A CLINICALLY SUSPICIOUS PALPABLE LUMP SHOULD BE BIOPSIED. Dictated by: Yary Post MD on 06/14/2022 at 14:18 Approved by: Yary Post MD on 06/14/2022 at 14:19 Normal [facility] XR hand RT min 3V*on 022 XR hand RT min 3V* [facility] [employer] Other XR hand RT min 3V* [facility] [employer] Other XR hand RT min 3V* [address] [place] [address] [employer] Other XR hand RT min 3V* [place] [id number] [employer] Other XR hand RT min 3V* XRay Report [employer] Other XR hand RT min 3V* Signed [employer] Other XR hand RT min 3V* Patient: Annette Rene MR#: [id number] [employer] Other XR hand RT min 3V* 20 [employer] Other XR hand RT min 3V* : 1955 Acct:[id number] [employer] Other XR hand RT min 3V* Age/Sex: 66 / F ADM Date: 05/20/22 [employer] Other XR hand RT min 3V* Loc: XDUCLY Room: pe: [facility] CLI [employer] Other XR hand RT min 3V* Attending Dr: Virginia FRANK [employer] Other XR hand RT min 3V* Copies to: ZAC Michaud [employer] Other XR hand RT min 3V* Ordering Provider: ZAC Perez [employer] Other XR hand RT min 3V* Date of Service: 05/20/22 [employer] Other XR hand RT min 3V* [id number]) XR/XR hand RT min 3V*: M79.641 [employer] Other XR hand RT min 3V* [address] film [employer] Other XR hand RT min 3V* COMPARISON:None [facility] [employer] Other XR hand RT min 3V* HISTORY:Right hand injury. [employer] Other XR hand RT min 3V* No fracture, disloca tion or focal soft tissue abnormality seen. Degenerative changes and [employer] Other XR hand RT min 3V* atherosclerosis. [employer] Other XR hand RT min 3V* X R/XR hand RT min 3V* [employer] Other XR hand RT min 3V* IMPRESSION:No acute findings [employer] Other XR hand RT min 3V* Impression dictated by: Rodrick Galvin M.D.05/20/2022 11:13 AM [employer] Other XR hand RT min 3V* Dictation Location: [place] [address] [employer] Other XR hand RT min 3V* Transcribed By: HERNAN 05/20/22 1113 [employer] Other XR hand RT min 3V* Dictated By: Amadou Galvin S DO 05/20/22 1111 [facility] [employer] Other XR hand RT min 3V* Signed By: [facility] [employer] Other XR hand RT min 3V* 05/20/22 1113 [facility] [employer] Other Coding Summaryon 08-21-2021 Coding Summary HTMLBase 64 NwibxkxaCTy5dRy+PGhlYWQ+PE 5EJSSsP76elJCgcT1KD5wMGU1G BYVZCPKOXQ2TIG8fkJM5SAezB7 VybiAv QjsdzGRoDJ61NAr7MQI7qPfvMS phqJ1krJPpN6l6NbTlWV35dF16 SJeuTGYgHsE4AyAzwpvqwTZz D9feFtBxvFTlMug+PHRhYmxlIH xmOFNkOCgsCMGvFxMjoUzuCM8z Ng5wLMUcLEDopDvgeUVwTxYa f5zzJHBdOZorIE7vrWbtF3PjdV J9IUVwv4s5Ph50jQP+PHRkIHN0 xYyiVNoox683HoKej0pjFDV2 cMGpNQqgDQV5N69zm6G2GLLwIE EmRRR5aQV5iU9mcJilitctX9Yb gXPdOhP1NVN8kGRgaW8rhZdm wikmhJ2oXwg+E92EWX1AQJOJRO 2YPgh9C3LzCxzbkHD+GN15QBWh BZ88jBUqbRTwx1erwRa5KgKd HWLhJXZ3kJbhMAetb7NmWQIjJ5 1xmYVlu8R7HAYobUxrvQOfHhDz cZC1xU8gDAziztrxz3aaoque Czdfm3syrd66jP88D69hJUqhOH OiNWI3IUZnOJTywLiqfa3ltQ0p Ii8+VXbuk3bct4pdkHq1FlZj NBIlgnJpzKfzWBN6e9FgOg12B4 PxmYtls2ZyYcm7ym55wZUir1I6 vZR7MLveWYYrsG2jCVpdRlR9 IODpDdDwfW07lCWnUGkpVz5znZ owoZwiIA5yDOXjhpbvELYviL5t KMMtyGSmnQhoRX0oYYLrpoki y391EoJcCYI7VSUodHEdD3YdbN 8oMhToPMNcYUZvQ3DtiGBaMUhl R431IBuvXaN7VPPjdwVqM7Rv XYTotWlrAjS4m8U4Px9Ko0Gpgt eyMQS4SEccESOgNlG7VyDuCuH7 A1CoOqg6CJEelVbzZH4xJ1Pz HGIcljcnnutraOR9UKXxZLOjaQ 03uNZoCNrxTg2tr0Z4c430CPBz MEBonQ98Re4uoSbfBPFkgRZJ aY3vvicwt5ouhmazMzAiEUZdFY k8AXr0OXHulSzrWzPdOWW1OdW3 LDY2lZOtuS4niOuqovjbnL2v Oyc+K72ewV0aPRT0LOG5lcqmSU DvzxFmAI96AG76E6GuTifkvCIj bGU+LTIemlHmsZbwOG6eMbYm v6ghp2ScHLghR5TtHOKoSYdmQs a4VOKvYDD7fLR9mN0kXCEtTPzo b8L5eIK8O5MkqlQrqi2iz1cq HCBqRFjfT20khVAwf7S0DQIkcS A1EBNwsMvdNoVpvJ04Ams+PGNv tXwtd1QvNrzcg9eqy7jpjJo5 LkJiLNWhfmRhsNagBCV2p7HtOi 96D74xPNvwOYPaHCVaVQHsSEYx zRjkmz7sqZ6uHf4+PGNvbCB3 kIL5tN9oGJMtRwQ9MOdeF143Mf NfrARdKipex2niz3mqyGp4ZqJp GKBvjbDkaCwiVSS4i0LjJb09 K56lQCuwYSPxAUKkZBSmRNTwaW dpbz3jfR4xHs9+TN2ac3luqj71 sO15dTZ+THZaFIW7oZvrPQqa LAAouX0rRRrhWtW2YTZySaRcaR 27jUUmVZpuNn5etAzkaRwhTT4s THZnzoxoh804LxJtt3upBTSq dKFhZCqgDEH0G42kz7W2QARvAZ KjFAT5tHC4cF6zrFbsheeijDEb rFhbvzXfhBsjSTqfYMuqC830 IHRvcDsnPlBhdGllbnQgTmFtZT n8W5QkMop1OXCgeWbiTL6kaUPg ECrhAf2fiMesqBcqZR6wSWXb smjjy420BaYib7ezKXHopWTrAC hsPJT7V25om3I3OBYnYFSdBGU0 sKA0xP4ykCkouujjrCZqeNnh ixRjvKztCOjuGYteG405LMVttE vePfZiywIxMYGrkUT8SA30DQ55 mMIcr4Y2vJT4R2LhGFDfxkck ezdwcUD3FLQqTLVhiR21Gv2khI rzJn6xXIKhODS1EDIseAEdK9Zc kZ4kZyHeGYJzMOGsL0CsgKFl ZKdbZ203SQclVvP7FZEavzCnX1 TwYSWliLemPxQ9p4J4Vo6BN4E4 ON62HH41vZJfe6Q8aNS1I4Bb TUFlniuotxgpvKO0LHBtETAyfC 99Or7oqHzgQa2qMAYyJCB7OWOu bANjV9LdnX6wAiYjELHuCUMg P6BqsNKaLAswH909YCasNhN7FB SlyrYpW5FmXEAhgQzuVrD9b1C2 Rl6QCXe8IP40AW40kFHuy8Q7 wLR3O8UlMYQlwxadclbmzRP3IN HkWOWmrR60Ci4guFvjYf6gAEBx AIY7QZDdtBYpM5TnyQ3kHsFl YMEmJDBiR3RwfPFjOUheJ345OX skXyL0XRRvxlKkN8XwAJWfeQdk EuZ6e9I3Pn8DFMRuSW47YJG1 nOD2LS38MJ31R8ZvPqnupPNvjO U+PHRhYmxlIHdpZHRoPScxMDAl WiXsoHtbBX8iWo9zHPIsIEJk tPpjwYNtHtYzf1dqSTBoCAgaET 9csKztH2VxbWN8XSUvq9q1Rf14 J91pA5YcmNV+ERZblYL5wQW2 bQ4xYsUvAbF0QUarR273IwXgeZ KzBkedb4ctx9oltEs4UtN5ZDEh fhOcaJxhTST6j3ExWp72D37a IHdpZHRoPSIxNSUiIHZhbGlnbj 0stY1fZs1+YXQlfRP8zUD6dQ2t NkGlIgI5CWhoH850HaIzpAIp Pgtsv8oxd7hraUb2IiMmKLDivr OjvXdkFWO9u3FqYz45G1TwcKkh u6LyFli3xd01xTPhm8T7tBK2 C6SjPNJwuevnhGQbwLbjRA3eJY EajeyySRXgjI5sYDHlW0z2PwEt UvI0FUwsN9NrobC6KCUtwICc RDxhDPY7L49pd1N3STWcSVKxQK F2jJC6oT7deGzwxqyuwWZqhRzo isQvdXgxQWiyWGuzA516WLOc hSilBBMwuC5aZRQofNRaqIskQY 3xKJMfoiwuAbbHIk7OFjefQ7ZG CI5cYZctzNQ+JZUoHCC0uKof LQkxMLApwD4hSKJoI1e9RuZwGt W1KJrvD6YgJHIgyyelBx83cH8f QzSuVpW9YVxwG9YgeoH3IHTv bSEvPFmnKPR9N43xn8D1AEQqGS PbUVE1iLL1qR6uoBknvsvwgDXn mEkjnvTbcXglLNltUWzzB212 JXNuaLgrGdE0HfW6ObY2OJJ2W9 WsUtu2MCStcUtsCV9vqGTxKEoy Fg1oiQmzyLdoJS8rRUSykzoc KQCwuC2mNSExlZEkiJhjBY5nMJ Stkhpiv575NkLhNEL1NNWilPTz J6WlyE2kPsZbMDLyDGMnG8Zn xBEqGHwmP170QTveBzT9UQHhmc LxY8PrLFMgjQriYpX9t3H2Fj64 NyBZZWFyczwvdGQ+PHRkIHN0 kJesJPbkMRUsyV1kHBGlG6g0Xf RuEzH7DApuF0IzRSNavaemBo19 xX0iAjBdDtQ9JXkqQ2EnkrU2 ABGtxJEyKYgvGUV7Z51cb4D9ZZ FuTWUiJRB4lFG8lS0ebDrsopwg bGVmdDsgdmVydGljYWwtYWxp Y823TVVpaFjsXpQXTVTWWZcouL Q+UTHlEJL1vMugGNcaCTQizN6w TWInC0r4NvShJaP7TCwrV2Jz YMEotcijWw39kV9nIvWsMxL1EG bnS4VwrwV1JQZtwWHmGBsuTSH4 T38tw8B3UDIvDSOoVNV3fJP0 fZ5seRssswcvwISawLsvrmXgxO uoKSfhIGffD962FGIrkBouNh4o k8QluvH4mB4oQF03EA97T4Vb PjwvdGFibGU+PHRhYmxlIHdpZH QxQRxlMCPdFrDzhSchET9pSp2e OCEqXRGgeKiukCFpDpExh4be ALGwPPkwAD9dgFboV4RxxOL4EG Pfl0t8Dq84O64iW1OqfZA+PGNv mLA9nXI5xH2qAdLfAnZ6SDoe D161UtFpvZJsQarse2xas3tcsT o9RsQjTFZnxwQcpTfnMHY0u2Gu Jk85C91kUUiiTOYbGRQqSTBv UHFwvYlveu9pkN6yUz3+PGNvbC I4yHC2jG0iEsNaHiB7MYfvE942 UpNfeZVfIouvO87qW7QssNW+ KCIbTkd7JSVnmUykAT7lnQUcNL ewIi8tZLK2JhSqYtVeZWsqJ8Uc QMXreoihdsrflWX2HXMgKOHy rX14Uf1zrKhxXs8lJMZpAMC7LO NmtEQfC9ElaE9cClRyAGAbKIIq W5QspXCbVOxiU969NGqhYgO1 BQRcurFnF8NyVZLvaPilCyR9x0 D6Rw9BmWoonZCkVC5zZlMxGDb7 W9JdLmx6WQPjaMbqXX0rpOLh AOgnQv4ekTxyfFejPZ0kVELcfe lfk386SsHgu5ndYAHdzINrOOdc SOS2P33lo5E8CEZwWXGcWNC0 qDR8wC4fwCsvyuyyjLDpxXrema WqbUdoAEueZIvpD746ZZSuiZcg TtINVrd0P1GaVqe7MIRowEbf HV0xvXSzHVbePl2tlGpxjSouON 5rQDXmayojt808QvUxi9enGJRk cEGfDVaaGAI5O62cw5J9PINt SBNxBVD5pUF4nL4boFncuvbdbG XeuDizcnSsxRunHWdfLUynM512 RCCssKpkCb7XLip3J7MtCpg8 QSPaoPhpBH4ncZHjNZooXn5ybP tpnRiaVP6jNOJznxnib241BzRt l9kdIQWmhZJtQBaxRTY3I75w f5I7GTZfANXeSAQ0iOH3sA2yxC lnbjogbGVmdDsgdmVydGljYWwt EInjV481YXDvgXsyFzQesUBa OjwvdGQ+GO35qm02O5IoNwhhNb h7FWSfMYJ0yMD2uI3eJQJwVOsw x8H6dFQ2L8RxbsHrse1ut8qt YXB (more content not included)... [facility] Coding Summaryon 08-20-2021 Coding Summary HTMLBase 64 CubboiloQDx6zYc+PGhlYWQ+PE 7EDWNiM13ttYJbcJ3XC8aUNE1S JDVHMRHKQR6HTN7xaMG1QEieF7 VybiAv QzxjyRClKH09CSa3FLC9xPibVB mixO5ewPQqQ0w7SzJwVS37zC83 IVucBEYfMnZ6DiKqznzvqXTw B7bmKhFtnJJmFoz+PHRhYmxlIH psCFQfJVqkORBtOaInlVomYE5y Jc9gTYWeFBLmuPtwjFGlEmYm p0ewHFUdRFbwAS7znKbgA1IuiV M6XWBqm9g7Ys68kSV+PHRkIHN0 kHxrVOwfy167QlBhj9bqDKH6 aVRpPPxkQCN5D54nj9Z3SFRzHM ImPVW7tWO2hL8rwUhaokgfB0Nt cHLfYgQ8JDV3bWDseL5zrEbr jclugF4mCbv+Q79WAO1NUIETTG 9XKox3D9OzBjlgqRD+CJ64NKWk LR60cIFaiFLbh8qgmZe9SlAs OEJoDVE3wCjjBVgmo0JaRJSlN6 3ntEQnm8C3HZWlyQqqwXOrIfCj lHJ4vR5pIUshijrdd9qtqloj Iwxno3lmlm65gV36O89oPZyoYD ZtJGC8BDCmDBHiaGcobs9goV1v Ii8+ZOyvo5ezk7vlcJb2TdLt COThuyMvwVrxHCG2c2EnPb01F2 AezXhif1BeDat8au45nXCam6C7 oVW2HBliPAKphH8vOUadQvF8 FPMhNwYbdY99lUSnALekJn9bfV kizIrtOG8lPOLwsvjiLZVrsW5f RUAmxCXzvMplDF1uOQVogogp y406BqIbBAZ6WYMmqPTkA9IzlI 4ySpXyZKMxBHCmL0FkkWTfDKev X182FXvyJxZ0HQPdawAeU5Oe NVLksOsiUsX3b0F4Kf1Fv0Dsug rtQTI8KWhiAPFjQkW1MqHvQcF9 W9QaEhl7KUHnzMorBN2rI1Td IGXstpsrkjglwMO1QEUaRTBncF 65xRJzQNgeNh3ls7E3o049AWSh YPZhlU51Lp8fnTugQZLjsKAL tR7nvswcy0fancpfCkYzZLBjDI b5POl8NVQlqCsxIaWaOIC5PgH6 RDE1uTLemB5uzKsglngzrF5h Oyc+M92mxD9tTDW7LCB8nrftBC ZpyjHjKD57CD05V4KpGymjfEEl bGU+TSSxyeDglFpsKO2eBaVr q7xhd9AoXVegX2IrYPUoCEqvNp k5QYNgDRA4nYD9bN4tVXXuBDtd i8C5vGO5H2XcfeHsjv3zf0fi MYBuXQeyZ98afWFwm4A4IQKavH T7KXIvoJlwYiOaxR35Dvt+PGNv dKexy2ZfAanlp8gnb6dqjPb1 WlQtMJZgyaQfxGeuTLX8h0FeRh 92F31lLGddGFViWFMxYHHvEDMv uUatmg1puD7zJj6+PGNvbCB3 qKV3iT1yVBGzBqE3RBqeH572Ls WaqILcDflbd8lij3beeYt5DwQf CNQeirZctNsoJAM1i7WvIw64 D38tINieHPOpJZMjDNNkVQGkhB zktz1jnR7hQn7+EQ1qe1fmpo44 iO63cAS+IQJjBHQ3zDjeVDzl NRRwyJ7tVItxLjQ6ISQhHfAxrW 25sJUiFLtyPd0vvFqlsHzoJV0e HVMlqilcn432UrXts2prSNZn mNYhEGztXLE6R44tl5R2NMVgIF ZpKVB4jMV4iW5atHyrnzwbgCCb lOravkEgkGjnUTpcYCdnB063 IHRvcDsnPlBhdGllbnQgTmFtZT f0K5JxVyw6PMAacDgtVT2efBZa TZexPj4wxEkysQvyGG2iSIYg muvlg248XiYyk1yqBDLrpEDtIO qpTAL7Q45vo1L1OLBqQMKtXXH6 eNB4tR2gnOfuxvrdqPBeuTmq wsQsaObuPCjsTEjrG733VLMvnN jvPrChhmSoUYQfyIS4AW03EH70 dJUge3Z5yVN4I0OxXIIjedgs whixpSQ9BANiLNQegH58Bo9vyV kfCr4cEXCoCHC4CMBmhKCcD9Fl mB4tWkHiPPQhFCObY9PpgXJk VPbyS125ONmlWmB7PFVwonViD5 GrLWHzoUhsOfR1b7P1Ok3UI4T9 OP72UT05bNAtz2A7tVD9G9Uq XREjypljtxueoBT6CAFaUCUoyH 65Rm0ymDklZg8wAJQxIYS1JMXh kEPcA5VrnM9fErPmRXIwULSu Q5PgfDWfTIdlB253CBmoCkU7MT XitrHrH3MfJXNahXjsDtT4j9C9 Te9WXNs4QE72GJ86gHImy5Z0 gJC8G8XjDPBhwpfihoeyxTF5DG NkXGZivI07Cl8xvYqmKk9xSEUk FMZ7YRPkoEVwT7RsrU6xEaBo POPwSOLhO1OgvKLuETncM211ZM cuUqG6OUAnhnMqX3XjQIQflBij VnK5s5E4Yr1UZIJuVL46MKC5 yFM9CX11PE75S2HzGenzyZMthA U+PHRhYmxlIHdpZHRoPScxMDAl MeEqaYjhJD8vNc1uBZVyKYRy sXxxoXLlKyByt3wkFATqWSvnYG 9sxPcaH4TyhHM0VCCcn1x0Lm96 U90tV0VcxYP+GANtbNO0iIK1 eU2qTkDdJxO2MOpsO288JaCdqQ XuWoodh3rqz4vurTu1KnT5WCDa oxUuhQzjEIO4w5LoNf05S60b IHdpZHRoPSIxNSUiIHZhbGlnbj 7fzZ8pEi4+JXVesRG9wMH1lH6t HyHeDkC7TVogS963KtYkyPXz Vfzcs7rug7tpcUi1XaPcOLBzob XvwJaxFGA1y9YjWk34D8DysOiz t4NuUmr8xf03yLWer1E5sNF5 A2RfKJWfsrojiUOqzXriNV3rBA HpxqenHSQvrG2xJEKvK2q9XaEz CbF0ENwtP1AimrX7SIZdlXRz QGkjLUK5O72jk0Q5VULkBUMxXW J6hYF1oH1qkDsdyhpewGJkvEon wrWvfWywDJrjAGxkT311TZOz tJibGSOmeD5oSGPhuFCdqSvbYQ 2vNUEanuepBafELi4DWskwB6PX DO9vMAlhpGE+ZBRyMAI6zHpx TNyiAINuiW0jWDKcI2s3ZpKaKe C4XBxrH2RmXFMxbzioRc94eN5u PlXnWlJ4FGqyZ3BobbJ2XJLu cBRcWYnnYUZ8N07co6P3RQXcPB LhTTW5jLU0mH5omUuqutgytPGq wAccmsMxkUjnFFgcOOsaL838 ZHRfoIclHhZ9LeJ0PkA8LJI9M6 ZfCee6DFIevYcwSO4bqWLrSXmm Hs3dhBdjeCdoRF1vHVTmcrln TYDfiZ8nXNSuaCPwsPalLR5pKF Heduomc728BiHkUQM6WBLsdCGo G0WqsA9uLdQgFKWkUVIzT3Tr nNXkCOanM035YDwhKzZ9QYAchm CeS6JmYGQaiHdbVmY4t4E5Or88 NyBZZWFyczwvdGQ+PHRkIHN0 rAsfIPmaNWZxkB8gLJHkW1w6Np AzWtC9RGirJ0AeKXQslymmDa34 uR6dAlDcZrM1QQkfR8EoioR0 CVAiaGGjEZdfYSZ4U00ej3A2FK PqFNJbONL2oZA1gR1vbKxovlbb bGVmdDsgdmVydGljYWwtYWxp B386QSHpdZpcErGLWWBVIGixaY Q+CSNlJZL5oUyyBZdgNVRccK1f POFhH5p2HlZkHdW7EFicQ8Pe XEKcuddrQx73iS0nLkQkYsS5HE zhV5XkfcL1FAAnmXDbXFbtHPN1 O15if6P7AJDpDZMuYHZ9cPE5 hZ6xrMsozfbdoUHdbTzhfhBfnE shZUgyHCslX785XRLpwWrzActr tZO6dKPvxQhbtEY+VQ17zt95 V4BqDsfwGjo2JAFjWXK9aSC1hE 3vEDXiEZjhe3U9tYI1C9ZfepTe qo9xf5kuJTTjKMmiO39khZJf p7D6CKHhoLS9NGVccTtzAtMozO 93Oyc+UWLstRnhy4HyKlosw7mg v5kkxGe7VqScSEHfceVgdMga VKP7m6GkPb78S48tKFejEWBuKA UvQJIoVDXzqJvmzm7muG6jIa2+ IGTrsEH8gSQ7sM2yEdYxPpQ3 HPmuP763SyGkjBLxWjolc6nje1 lqaKr5WiAmBTRpoeXaxZivXTL1 f9IwHl21H0GixZcrg4PdQyq9 ff10cKIxk7C4sTH3Z0EbAOXjqc jqxJBxzHyuBI5yVUNidgcdKDGc sO5uKKQdW4t8YxMmMeA2UCqu S9ZhahY3NHLmqIWkTFCvtEIWmC 4ygbiic1bckbeqOmVcFABdCLi3 VAl0SDZmxKqpOmTmPPO4XxW5 ANC2cVTvxI6ptPktkrjboE0uCw c+MGf9v6ytwNEgOA0osTV9QW80 UZ62mMGjc6E5dIN2U6OcBXAq wlxzcjfvbLB9NXRmYNTdsS89Wf 8zvEisJm6cDSZeELE2XZAmtKJf L0JgkB2sMhWkQAYpNYHxN7Pu gUXpGJseG863ZRanPyH2XFAtsc SwF8NyQUYkcXuhFoG2n6E0Fg2I IN10DK85IL67bGCvp1O1sSC0 W8PySAHwcmukblyccHC1SFUsXH WmjF84Tz0gkWibEk7fWSCiZFJ9 LJCmfJKoP5OomO7zZeRcTSBu VFQoC6VvxGAlRAqlU164DItwBr C0TXZnxpWqE0RzANRmoWyoRhN1 f5X0Os8NRx38WV88PM70qLWc a4T8hTK6V6AaTVBzebhdaxbhyC C3EKWnTMIcjG45Fx8qjXldBa7t SDXnDBU6LLQyqALdZ6HadK2z TlYrCGNvLYFrI2YhlNBfRWrcI3 54KQnzIfR9TNZoaiVhR2TnTWPb hBswFyM8b0H1Df8BGPqatex6 N7McVbwlsIO+AC34KMUbJR12lT HziBOik6vuzTz6HkGwLAAwUHS9 kSohUCwpk7DyLDLeN10yvYMm c2U (more content not included)... [facility] Outside Recordson 08-17-2021 Outside Records [id number][facility] 08-15-2021 Consent Forms [id number][facility] Pathology Sendout Teston Pathology Send Out. See Report [facility] Comment on above: Order Comment: PROCE DURE COLONOSCOPYSPECIMEN CECAL POLYP Performed By: #### 1 [id number], [id number], [id number] #### [facility] (DEFAULT) [address] [place] [address] Provider Orderson 08-15-2021 Provider Orders [id number]#[facility] Telemetry Stripson Telemetry Strips [id number]#[facility] Transfer Noteon 08-15-2021 Transfer Note [id number]#[facility] .Auto Diff 1on 08-14-2021 Auto Gordon % 7 % Normal 1-12 [facility] Comment on above: Performed By: #### 1 [id number], [id number], [id number], [id number] #### [facility] (DEFAULT) [address] [place] [address]47 Baso Abs# 0.0 x10 Normal 0.0-0.2 [facility] Comment on above: Performed By: #### 1 [id number], [id number], 56965156, [id number] #### [facility] (DEFAULT) [address] [place] [address] 78258 Basophils/100 WBC (Bld) 1.0 % Normal 0.2-2.0 [facility] Comment on above: Performed By: #### 1 [id number], [id number], [id number], [id number] #### [facility] (DEFAULT) [address] [place] [address] 28127 Eos Abs# 0.1 x10 Normal 0.0-0.4 [facility] Comment on above: Performed By: #### 1 [id number], 9754499, 56253561, [id number] #### [facility] (DEFAULT) [address] [place] [address] 41338 Eosinophils/100 WBC (Bld) 2.9 % Normal 0.9-4.0 [facility] Comment on above: Performed By: #### 1 [id number], 7432661, 59438632, [id number] #### [facility] (DEFAULT) [address] [place] [address] 97328 Lymph Abs# 1.5 x10 Normal 1.3-2.9 [facility] Comment on above: Performed By: #### 1 [id number], 1681092, 39517723, 2057934 #### [facility] (DEFAULT) [address] [place] [address] 91081 Lymphocytes/100 WBC (Bld) 31 % Normal 14-48 [facility] Comment on above: Performed By: #### 1 [id number], [id number], 31908602, [id number] #### [facility] (DEFAULT) [address] [place] [address] 94894 Gordon Abs# 0.4 x10 Normal 0.0-0.8 [facility] Comment on above: Performed By: #### 1 [id number], 2470436, 27787573, [id number] #### [facility] (DEFAULT) [address] [place] [address] Neut Abs# 2.8 x10 Normal 1.5-9.2 [facility] Comment on above: Performed By: #### 1 [id number], [id number], 05086978, [id number] #### [facility] (DEFAULT) [address] [place] [address] 51256 Neutrophils/100 WBC (Bld) 58 % Normal 44-88 [facility] Comment on above: Performed By: #### 1 [id number], 6078142, 39081070, 7811365 #### [facility] (DEFAULT) [address] [place] [address] 89628 C. diff DNAon 08-14-2021 C. diff DNA Negative Normal Negative [facility] Comment on above: Performed By: #### 4 [id number] ####[facility] (DEFAULT)[address] [place] [address] Internal QC OK? Pass Normal [facility] Comment on above: Performed By: #### 4 [id number] ####[facility] (DEFAULT)[address] [place] [address] 27565 CBC w/ Auto Diffon 2 Erythrocyte distribution width (RBC) [Ratio] 17.9 % High 11.5-15.0 [facility] Comment on above: Performed By: #### 1 [id number], 4554059, 66377457, [id number] #### [facility] (DEFAULT) [address] [place] [address] Hematocrit (Bld) [Volume fraction] 27.8 % Low 33.7-40.4 [facility] Comment on above: Performed By: #### 1 [id number], 2185048, 26744493, 9352357 #### [facility] (DEFAULT) [address] [place] [address] Hemoglobin (Bld) [Mass/Vol] 8.1 g/dL Low 11.3-15.9 [facility] Comment on above: Performed By: #### 1 [id number], 7496319, 13130424, 3637298 #### [facility] (DEFAULT) [address] [place] [address] Instr WBC 4.9 x10 Invalid Interpretation Code [facility] Comment on above: Performed By: #### 1 [id number], 7740229, 53941453, 0905068 #### [facility] (DEFAULT) [address] [place] [address] Man Diff? Auto Normal [facility] Comment on above: Performed By: #### 1 [id number], 7605766, 63229164, 2688140 #### [facility] (DEFAULT) [address] [place] [address] MCH (RBC) [Entitic mass] 27 pg Normal 24-34 [facility] Comment on above: Performed By: #### 1 [id number], 5257169, 94978941, 3017224 #### [facility] (DEFAULT) [address] [place] [address] 87657 MCHC (RBC) [Mass/Vol] 29 g/dL Normal 26-37 [facility] Comment on above: Performed By: #### 1 [id number], 2507863, 10393873, 8089380 #### [facility] (DEFAULT) [address] [place] [address] MCV (RBC) [Entitic vol] 94 fL Normal 81-100 [facility] Comment on above: Performed By: #### 1 [id number], 6602395, 29705462, 0184025 #### [facility] (DEFAULT) [address] [place] [address] Platelet 280 x10 Normal 138-427 [facility] Comment on above: Performed By: #### 1 [id number], 1175000, 43832709, 3432934 #### [facility] (DEFAULT) [address] [place] [address] Platelet mean volume (Bld) [Entitic vol] 9.3 fL Normal 6.3-10.2 [facility] Comment on above: Performed By: #### 1 [id number], 1627169, 78889460, 4326469 #### [facility] (DEFAULT) [address] [place] [address] RBC 2.96 x10 Low 3.70-5.30 [facility] Comment on above: Performed By: #### 1 [id number], 8874527, 60792398, 1913450 #### [facility] (DEFAULT) [address] [place] [address] WBC 4.9 x10 Normal 3.5-10.5 [facility] Comment on above: Performed By: #### 1 [id number], [id number], 78831922, 3716353 #### [facility] (DEFAULT) [address] [place] [address] Standardon 08-14-2021 eGFR Non AA >60 Invalid Interpretation Code [facility] Comment on above: Performed By: #### 1 [id number], 7957608, 91848019, 7586850 #### [facility] (DEFAULT) [address] [place] [address] eGFR AA >60 Invalid Interpretation Code [facility] Comment on above: Result Comment: Cigar Bander juanito Kidney disease could be indicated at eGFRs of less than 60 ml/min/1.73m2. Kidney Failure is indicated at less than 15 ml/min/1.73m2 Performed By: #### 1 [id number], 8451220, 30394756, 0805659 #### [facility] (DEFAULT) [address] [place] [address] Albumin [Mass/Vol] 3.0 g/dL Low 3.5-5.0 [facility] Comment on above: Performed By: #### 1 [id number], 2060482, 81079439, 5315125 #### [facility] (DEFAULT) [address] [place] [address] 71639 Albumin/Globulin [Mass ratio] 1.8 {ratio} Normal 1.4-2.6 [facility] Comment on above: Performed By: #### 1 [id number], 5083335, 22039667, 3212462 #### [facility] (DEFAULT) [address] [place] [address] 23723 Alk Phos 35 IU/L Normal 32-91 [facility] Comment on above: Performed By: #### 1 [id number], 8917164, 05543720, 8815931 #### [facility] (DEFAULT) [address] [place] [address] 81276 ALT [Catalytic activity/Vol] 16.0 U/L Normal 14.0-54.0 [facility] Comment on above: Performed By: #### 1 [id number], 3662489, 89128321, 2065900 #### [facility] (DEFAULT) [address] [place] [address] 40424 Anion gap [Moles/Vol] 12.0 mmol/L Normal 5.0-19.0 [facility] Comment on above: Performed By: #### 1 [id number], 0339024, 55172987, 0769188 #### [facility] (DEFAULT) [address] [place] [address] 71191 AST [Catalytic activity/Vol] 24 U/L Normal 15-41 [facility] Comment on above: Performed By: #### 1 [id number], 3622027, 85444329, 3345308 #### [facility] (DEFAULT) [address] [place] [address] 93181 Bili Total 0.5 mg/dL Normal 0.3-1.2 [facility] Comment on above: Performed By: #### 1 [id number], 9957141, 14820355, 5046532 #### [facility] (DEFAULT) [address] [place] [address] 05404 Calcium [Mass/Vol] 7.4 mg/dL Low 8.9-10.3 [facility] Comment on above: Performed By: #### 1 [id number], 6923241, 27254074, 9987539 #### [facility] (DEFAULT) [address] [place] [address] 64631 Chloride [Moles/Vol] 108 mmol/L Normal 101-111 [facility] Comment on above: Performed By: #### 1 [id number], 2285284, 31375423, 1744246 #### [facility] (DEFAULT) [address] [place] [address] 43507 CO2 [Moles/Vol] 26 mmol/L Normal 21-32 [facility] Comment on above: Performed By: #### 1 [id number], 7628241, 10670328, 1999201 #### [facility] (DEFAULT) [address] [place] [address] 11690 Creatinine [Mass/Vol] 0.68 mg/dL Normal 0.60-1.30 [facility] Comment on above: Performed By: #### 1 615984549, 3131210, 21765931, 7155934 #### [facility] (DEFAULT) [address] [place] [address] 93443 Globulin (S) [Mass/Vol] 1.7 g/dL Normal 1.5-4.3 [facility] Comment on above: Performed By: #### 1 [id number], 6321868, 46445686, 9558286 #### [facility] (DEFAULT) [address] [place] [address] 78448 Glucose [Mass/Vol] 80.0 mg/dL Normal 74.0-118.0 [facility] Comment on above: Performed By: #### 1 [id number], 2655483, 98425381, 8633730 #### [facility] (DEFAULT) [address] [place] [address] 00421 Osmolality 279 mOsm/L Invalid Interpretation Code [facility] Comment on above: Performed By: #### 1 [id number], 9596395, 65323547, 1400214 #### [facility] (DEFAULT) [address] [place] [address] 41069 Potassium [Moles/Vol] 5.5 mmol/L High 3.6-5.1 [facility] Comment on above: Performed By: #### 1 [id number], 2730244, 48963143, 3784207 #### [facility] (DEFAULT) [address] [place] [address] 05164 Protein [Mass/Vol] 4.7 g/dL Low 6.5-8.1 [facility] Comment on above: Performed By: #### 1 [id number], 3614894, 80263937, 8287498 #### [facility] (DEFAULT) [address] [place] [address] 52981 Sodium [Moles/Vol] 140.0 mmol/L Normal 136.0-144.0 [facility] Comment on above: Performed By: #### 1 [id number], 4701915, 04429512, 2674438 #### [facility] (DEFAULT) [address] [place] [address] 54686 Urea nitrogen [Mass/Vol] 14 mg/dL Normal 8-26 [facility] Comment on above: Performed By: #### 1 [id number], 7327548, 60659971, 7726583 #### [facility] (DEFAULT) [address] [place] [address] 91663 Urea nitrogen/Creatinin e [Mass ratio] 21.0 mg/mg High 4.6-16.2 [facility] Comment on above: Performed By: #### 1 [id number], 8838252, 74003161, 2871737 #### [facility] (DEFAULT) [address] [place] [address] 64645 Inpatient Patient Summaryon 08-14-2021 Inpatient Patient Summary [address] [address] Patient Discharge Instructions Name: ASHVIN RENE : 1955 Patient Address: [address] [place] [address] Primary Care Provider: Name: TUSHAR SOLANO JR. After you are discharged if you find you have any questions, please, call [phone] ext [phone] to speak to a nurse. Discharge Diagnosis: 1:Anemia; 2:GI bleed; 3:Anasarca; 4:Hypokalemia; 5:Hypomagnesemia; 6:Hypocalcemia; 7:History of hypothyroidism; 8:Elevated troponin; 9:Hx of CABG; 10:History of Clostridium difficile colitis Prescription Information: If you have been given a prescription for narcotics, seek immediate medical attention if you have any difficulty breathing or any sudden status changes such as confusion and sleepiness. If you or anyone you know is experiencing suicidal thoughts, mental health, alcohol and/or drug addiction problems; contact the [facility] 03/02 Crisis Hotline -Text 4HWMJ hn [phone]. If you received any narcotics, sedation, or any other medication that causes drowsiness for the next 24 hours, unless otherwise directed: ? Do not drive a car. ? Do not operate machinery such as power tools, lawn mowers, drills, sewing machines, or stoves ? Avoid alcoholic beverages and drugs for allergies, nerves, or sleep ? Do not make important personal or business decisions or sign any legal documents [facility] would like to thank you for allowing us to assist you with your healthcare needs. The following includes patient education materials and information regarding your injury/illness. ASHVIN RENE has been given the following list of follow-up instructions, prescriptions, and patient education materials: Follow-up Instructions With: Address: When: TUSHAR SOLANO JR. [address] [place] [id number] Business (1) 08/21/2021 2:45 PM Medications During the course of your visit, your medication list was updated with the most current information. The details of those changes are reflected below: New Medications [facility], [address] [place] [address] [id number], [phone] ferrous sulfate (ferrous sulfate 325 mg (65 mg elemental iron) oral tablet) 1 tab(s) Oral 2 times a day for 30 Days. Refills: 1. torsemide (torsemide 20 mg oral tablet) 1 tab(s) Oral every other day for 30 Days. BOZENA. Refills: 1. Medications That Were Updated - Follow Below Instructions Other Medications Updated: fludrocortisone (fludrocortisone 0.1 mg oral tablet) 0.5 tab(s) Oral every day. TAKE IN MORNING MEAL, HOLD IF STANDING BP [id number]. Medications to Continue That Have Not Changed Other Medications acetaminophen (Tylenol 8 Hour 650 mg oral tablet, extended release) 1 tab(s) Oral Every 8 hours as needed Pain - Mild. acetaminophen-dextromethor olvera (Delsym Cough and Sore Throat 650 mg-20 mg/20 mL oral liquid) 20 Milliliter Oral every 4 hours. albuterol (albuterol 90 mcg/inh inhalation aerosol) 2 puff(s) Inhalation Every 4 hours as needed for wheezing. calcium citrate (calcium (as calcium citrate) 250 mg oral tablet) 1 tab(s) Oral 3 times a day. cholecalciferol (cholecalciferol 125 mcg (5000 intl units) oral tablet, disintegrating) 1 tab(s) Oral every day. multivitamin (Multi Vitamin+) omeprazole (omeprazole 20 mg oral delayed release capsule) 1 cap(s) Oral every day. ondansetron (ondansetron 4 mg oral tablet) 1 tab(s) Oral 3 times a day as needed Nausea. ranolazine (ranolazine 500 mg oral tablet, extended release) 1 tab(s) Oral every 12 hours. rosuvastatin (rosuvastatin 20 mg oral tablet) 1 tab(s) Oral every day. sucralfate (sucralfate 1 g oral tablet) 1 tab(s) Oral four times a day (before meals and at be. traZODone (traZODone 150 mg oral tablet) 1 tab(s) Oral once a day (at bedtime). No Longer Take the Following Medications clopidogrel (clopidogrel 75 mg oral tablet) 1 tab(s) Oral every day. midodrine (midodrine 5 mg oral tablet) potassium chloride (Potassium Chloride (Blu-Ytmo-Wld 10) 10 mEq oral tablet, extended release) 1 tab(s) Oral 3 times a day. vancomycin (Firvanq 25 mg/mL oral liquid) 5 Milliliter Oral 4 times a day. It is important to always keep an active list of medications available so that you can share with other providers and manage your medications appropriately. As an additional courtesy, we are also providing you with your final active medications list that you can keep with you. acetaminophen (Tylenol 8 Hour 650 mg oral tablet, extended release) 1 tab(s) Oral Every 8 hours as needed Pain - Mild. acetaminophen-dextromethor olvera (Delsym Cough and Sore Throat 650 mg-20 mg/20 mL oral liquid) 20 Milliliter Oral every 4 hours. albuterol (albuterol 90 mcg/inh inhalation aerosol) 2 puff(s) Inhalation Every 4 hours as needed for wheezing. calcium citrate (calcium (as calcium citrate) 250 mg oral (more content not included)... [facility] - [facility] - [facility] Results [id number] [facility] Pharmacy Noteon 08-14-2021 Pharmacy Note I have personally re viewed the patient's medication list upon discharge including, prescription medications, OTC products, vitamins and supplements. Below are the following medications the patient is discharged on. New Medications [facility], [address] [place] [address] [id number], [phone] ferrous sulfate (ferrous sulfate 325 mg (65 mg elemental iron) oral tablet) 1 tab(s) Oral 2 times a day for 30 Days. Refills: 1. torsemide (torsemide 20 mg oral tablet) 1 tab(s) Oral every other day for 30 Days. [facility]. Refills: 1. Medications That Were Updated - Follow Below Instructions Other Medications Updated: fludrocortisone (fludrocortisone 0.1 mg oral tablet) 0.5 tab(s) Oral every day. TAKE IN MORNING MEAL, HOLD IF STANDING BP [id number]. Updated: midodrine (midodrine 10 mg oral tablet) 1 tab(s) Oral 3 times a day. 2 tabs morning, 1 tab lunch and 1 tab supper. Medications to Continue That Have Not Changed Other Medications acetaminophen (Tylenol 8 Hour 650 mg oral tablet, extended release) 1 tab(s) Oral Every 8 hours as needed Pain - Mild. acetaminophen-dextromethor olvera (Delsym Cough and Sore Throat 650 mg-20 mg/20 mL oral liquid) 20 Milliliter Oral every 4 hours. albuterol (albuterol 90 mcg/inh inhalation aerosol) 2 puff(s) Inhalation Every 4 hours as needed for wheezing. calcium citrate (calcium (as calcium citrate) 250 mg oral tablet) 1 tab(s) Oral 3 times a day. cholecalciferol (cholecalciferol 125 mcg (5000 intl units) oral tablet, disintegrating) 1 tab(s) Oral every day. multivitamin (Multi Vitamin+) omeprazole (omeprazole 20 mg oral delayed release capsule) 1 cap(s) Oral every day. ondansetron (ondansetron 4 mg oral tablet) 1 tab(s) Oral 3 times a day as needed Nausea. ranolazine (ranolazine 500 mg oral tablet, extended release) 1 tab(s) Oral every 12 hours. rosuvastatin (rosuvastatin 20 mg oral tablet) 1 tab(s) Oral every day. sucralfate (sucralfate 1 g oral tablet) 1 tab(s) Oral four times a day (before meals and at be. traZODone (traZODone 150 mg oral tablet) 1 tab(s) Oral once a day (at bedtime). No Longer Take the Following Medications clopidogrel (clopidogrel 75 mg oral tablet) 1 tab(s) Oral every day. potassium chloride (Potassium Chloride (Xlm-Llsh-Phy 10) 10 mEq oral tablet, extended release) 1 tab(s) Oral 3 times a day. vancomycin (Firvanq 25 mg/mL oral liquid) 5 Milliliter Oral 4 times a day. [Electronically Signed on: 08/14/2021 15:17 EST] Nadia Devi [Verified on: 08/14/2021 15:17 EST] Nadia Devi [facility] .Auto Diff 1on 08-13-2021 Auto Gordon % 6 % Normal 07-25 [facility] Comment on above: Performed By: #### 1 [id number], 8384455, 49794410, 1384351 #### [facility] (DEFAULT) [address] [place] [address] 89626 Baso Abs# 0.0 x10 Normal 0.0-0.2 [facility] Comment on above: Performed By: #### 1 [id number], 3574534, 72771664, 0832828 #### [facility] (DEFAULT) [address] [place] [address] 32559 Basophils/100 WBC (Bld) 0.5 % Normal 0.2-2.0 [facility] Comment on above: Performed By: #### 1 [id number], 7515140, 01095173, 7762379 #### [facility] (DEFAULT) [address] [place] [address] 55174 Eos Abs# 0.1 x10 Normal 0.0-0.4 [facility] Comment on above: Performed By: #### 1 [id number], 7234454, 80992233, 3671128 #### [facility] (DEFAULT) [address] [place] [address] 12308 Eosinophils/100 WBC (Bld) 1.7 % Normal 0.9-4.0 [facility] Comment on above: Performed By: #### 1 [id number], 7233726, 26153888, 9431086 #### [facility] (DEFAULT) [address] [place] [address] 42392 Lymph Abs# 1.4 x10 Normal 1.3-2.9 [facility] Comment on above: Performed By: #### 1 [id number], 9146740, 92989793, 9218802 #### [facility] (DEFAULT) [address] [place] [address] 54852 Lymphocytes/100 WBC (Bld) 21 % Normal 14-48 [facility] Comment on above: Performed By: #### 1 [id number], 8651356, 10163194, 2170304 #### [facility] (DEFAULT) [address] [place] [address] 34484 Gordon Abs# 0.4 x10 Normal 0.0-0.8 [facility] Comment on above: Performed By: #### 1 [id number], 3044514, 69117257, 8044654 #### [facility] (DEFAULT) [address] [place] [address] Neut Abs# 4.5 x10 Normal 1.5-9.2 [facility] Comment on above: Performed By: #### 1 [id number], 4788560, 22107076, 8501444 #### [facility] (DEFAULT) [address] [place] [address] Neutrophils/100 WBC (Bld) 71 % Normal 44-88 [facility] Comment on above: Performed By: #### 1 [id number], 5865094, 39923752, 1769107 #### [facility] (DEFAULT) [address] [place] [address] ABORhon 08-13-2021 ABO and Rh group Nom (Bld) Placed by Discern Expert due to BBPR being ordered. Hx Check: Found Anti-A: 0 Anti-B: 0 Anti-D: 4+ DCon: NT A1: 4+ B: 4+ ABORh Interp: O POS Invalid Interpretation Code [facility] Comment on above: Performed By: #### 1 [id number], 5881362, 12157703, 8432287 #### [facility] (DEFAULT) [address] [place] [address] ABSC Gelon 08-13-2021 ABSC Gel Placed by Discern Ex pert due to BBPR being ordered. SC1 Gel: 0 SC2 Gel: 0 SC3 Gel: 0 ABSC Gel Interp: Negative Normal [facility] Comment on above: Performed By: #### 1 [id number], 2489485, 41666007, 8663897 #### [facility] (DEFAULT) [address] [place] [address] BMP Standardon 08-13-2021 Anion gap [Moles/Vol] 13.0 mmol/L Normal 5.0-19.0 [facility] Comment on above: Performed By: #### 1 [id number], 1507196, 87310439, 8994657 #### [facility] (DEFAULT) [address] [place] [address] 07866 Calcium [Mass/Vol] 6.8 mg/dL Low 8.9-10.3 [facility] Comment on above: Performed By: #### 1 609405866, 2387824, 80888053, 2610293 #### [facility] (DEFAULT) [address] [place] [address] 73391 Chloride [Moles/Vol] 106 mmol/L Normal 101-111 [facility] Comment on above: Performed By: #### 1 [id number], 4461168, 32456226, 7188885 #### [facility] (DEFAULT) [address] [place] [address] 36873 CO2 [Moles/Vol] 24 mmol/L Normal 21-32 [facility] Comment on above: Performed By: #### 1 [id number], 0789549, 30902791, 2213859 #### [facility] (DEFAULT) [address] [place] [address] 43079 Creatinine [Mass/Vol] 0.65 mg/dL Normal 0.60-1.30 [facility] Comment on above: Performed By: #### 1 [id number], 4838049, 84685413, 0259652 #### [facility] (DEFAULT) [address] [place] [address] 44479 Glucose [Mass/Vol] 108.0 mg/dL Normal 74.0-118.0 [facility] Comment on above: Performed By: #### 1 039305999, 5350924, 44117455, 6405720 #### [facility] (DEFAULT) [address] [place] [address] 44853 Osmolality 275 mOsm/L Invalid Interpretation Code [facility] Comment on above: Performed By: #### 1 [id number], 2946212, 48659221, 6997023 #### [facility] (DEFAULT) [address] [place] [address] 52601 Potassium [Moles/Vol] 5.0 mmol/L Normal 3.6-5.1 [facility] Comment on above: Result Comment: Pota ssium medication/therapy Performed By: #### 1 [id number], 8878719, 11678157, 4642441 #### [facility] (DEFAULT) [address] [place] [address] Sodium [Moles/Vol] 138.0 mmol/L Normal 136.0-144.0 [facility] Comment on above: Performed By: #### 1 [id number], 4856487, 69421650, 6091002 #### [facility] (DEFAULT) [address] [place] [address] Urea nitrogen [Mass/Vol] 10 mg/dL Normal 8-26 [facility] Comment on above: Performed By: #### 1 [id number], 8797643, 35244658, 9323407 #### [facility] (DEFAULT) [address] [place] [address] Urea nitrogen/Creatinin e [Mass ratio] 15.0 mg/mg Normal 4.6-16.2 [facility] Comment on above: Performed By: #### 1 [id number], 8298012, 74709752, 6297720 #### [facility] (DEFAULT) [address] [place] [address] eGFR Non AA >60 Invalid Interpretation Code [facility] Comment on above: Performed By: #### 1 [id number], 8974104, 35117092, 8553755 #### [facility] (DEFAULT) [address] [place] [address] eGFR AA >60 Invalid Interpretation Code [facility] Comment on above: Result Comment: Cigar Bander juanito Kidney disease could be indicated at eGFRs of less than 60 ml/min/1.73m2. Kidney Failure is indicated at less than 15 ml/min/1.73m2 Performed By: #### 1 [id number], 7059442, 62767947, 8142074 #### [facility] (DEFAULT) [address] [place] [address] CBC w/ Auto Diffon 2 Erythrocyte distribution width (RBC) [Ratio] 17.8 % High 11.5-15.0 [facility] Comment on above: Performed By: #### 1 [id number], 2350444, 56129600, 4351335 #### [facility] (DEFAULT) [address] [place] [address] Hematocrit (Bld) [Volume fraction] 26.7 % Low 33.7-40.4 [facility] Comment on above: Performed By: #### 1 106206265, 8266089, 56473211, 7387129 #### [facility] (DEFAULT) [address] [place] [address] Hemoglobin (Bld) [Mass/Vol] 7.8 g/dL Low 11.3-15.9 [facility] Comment on above: Performed By: #### 1 [id number], 0135858, 79451891, 1323329 #### [facility] (DEFAULT) [address] [place] [address] Instr WBC 6.4 x10 Invalid Interpretation Code [facility] Comment on above: Performed By: #### 1 [id number], 8455781, 91181318, 3494372 #### [facility] (DEFAULT) [address] [place] [address] Man Diff? Auto Normal [facility] Comment on above: Performed By: #### 1 [id number], 6228865, 13425785, 4857148 #### [facility] (DEFAULT) [address] [place] [address] MCH (RBC) [Entitic mass] 27 pg Normal 24-34 [facility] Comment on above: Performed By: #### 1 753093392, 2026918, 71106509, 2252824 #### [facility] (DEFAULT) [address] [place] [address] MCHC (RBC) [Mass/Vol] 29 g/dL Normal 26-37 [facility] Comment on above: Performed By: #### 1 [id number], 9049567, 09307627, 1857142 #### [facility] (DEFAULT) [address] [place] [address] MCV (RBC) [Entitic vol] 94 fL Normal 81-100 [facility] Comment on above: Performed By: #### 1 [id number], 0937959, 83681380, 3756582 #### [facility] (DEFAULT) [address] [place] [address] Platelet 309 x10 Normal 138-427 [facility] Comment on above: Performed By: #### 1 [id number], 6631513, 48292850, 9095049 #### [facility] (DEFAULT) [address] [place] [address] Platelet mean volume (Bld) [Entitic vol] 9.2 fL Normal 6.3-10.2 [facility] Comment on above: Performed By: #### 1 [id number], 8181977, 67383667, 1777320 #### [facility] (DEFAULT) [address] [place] [address] RBC 2.85 x10 Low 3.70-5.30 [facility] Comment on above: Performed By: #### 1 [id number], 0472790, 14244432, 3162185 #### [facility] (DEFAULT) [address] [place] [address] WBC 6.4 x10 Normal 3.5-10.5 [facility] Comment on above: Performed By: #### 1 [id number], 3603140, 02222064, 2818668 #### [facility] (DEFAULT) [address] [place] [address] H&Hon 08-13-2021 Hematocrit (Bld) [Volume fraction] 29.9 % Low 33.7-40.4 [facility] Comment on above: Performed By: #### 1 150847506, 7963337, 44984152, 0981462 #### [facility] (DEFAULT) [address] [place] [address] Hemoglobin (Bld) [Mass/Vol] 8.7 g/dL Low 11.3-15.9 [facility] Comment on above: Performed By: #### 1 101081362, 5268449, 23112616, 4568909 #### [facility] (DEFAULT) [address] [place] [address] Magnesiumon 08-13-2021 Magnesium [Mass/Vol] 2.07 mg/dL Normal 1.80-2.50 [facility] Comment on above: Performed By: #### 1 [id number], 9451628, 97673855, 8999202 #### [facility] (DEFAULT) [address] [place] [address] 21562 Nutrition Noteon 08-13-2021 Nutrition Note 08/12 wt 60.1kg, questionable 12kg loss from admit wt at 72kg. Pt did received lasix, IV alb with improvement noted in LE edema, however, still question loss of 26lb in less than 1wk. Alb back at 3.3, stable. H/H also on recheck, stable. Intake avg 25-50%. Per rounds, if hgb remains stable, Pt to be discharged back to [facility]. If discharge plans change, will re-add supplements. Will request re-weight in am. Normal [facility] RBC.on 08-13-2021 RBC. # of Units: 1 RBC Indication: Symptom Anemia Additional Units?: No Date Needed: 08/13/2021 Red Cell Status: RBC Ready [facility] Comment on above: Performed By: #### 1 [id number], 9950325, 63539027, 9620842 #### [facility] (DEFAULT) [address] [place] [address] 32313 Telemetry Stripson 2 Telemetry Strips [id number] [facility] .Auto Diff 1on 08-12-2021 Auto Gordon % 8 % Normal 07-25 [facility] Comment on above: Performed By: #### 7 [id number], 37255653, 3481444, [id number] #### [facility] (DEFAULT) [address] [place] [address] 07276 Baso Abs# 0.0 x10 Normal 0.0-0.2 [facility] Comment on above: Performed By: #### 7 [id number], 20742818, 7643593, [id number] #### [facility] (DEFAULT) [address] [place] [address] 50255 Basophils/100 WBC (Bld) 0.7 % Normal 0.2-2.0 [facility] Comment on above: Performed By: #### 7 510052, 57231324, 2755271, [id number] #### [facility] (DEFAULT) [address] [place] [address] 55898 Eos Abs# 0.1 x10 Normal 0.0-0.4 [facility] Comment on above: Performed By: #### 7 334889, 69891207, 8417024, [id number] #### [facility] (DEFAULT) [address] [place] [address] 19646 Eosinophils/100 WBC (Bld) 1.8 % Normal 0.9-4.0 [facility] Comment on above: Performed By: #### 7 064257, 24715372, 7608345, [id number] #### [facility] (DEFAULT) [address] [place] [address] 95402 Lymph Abs# 1.6 x10 Normal 1.3-2.9 [facility] Comment on above: Performed By: #### 7 480179, 11192865, 8212715, [id number] #### [facility] (DEFAULT) [address] [place] [address] 89433 Lymphocytes/100 WBC (Bld) 30 % Normal 14-48 [facility] Comment on above: Performed By: #### 7 979036, 36781185, 7696114, [id number] #### [facility] (DEFAULT) [address] [place] [address] 83229 Gordon Abs# 0.4 x10 Normal 0.0-0.8 [facility] Comment on above: Performed By: #### 7 452885, 84453283, 0797088, [id number] #### [facility] (DEFAULT) [address] [place] [address] 04150 Neut Abs# 3.2 x10 Normal 1.5-9.2 [facility] Comment on above: Performed By: #### 7 465592, 80852429, 3116297, 1595866549 #### [facility] (DEFAULT) [address] [place] [address] 58900 Neutrophils/100 WBC (Bld) 60 % Normal 44-88 [facility] Comment on above: Performed By: #### 7 361961, 03379347, 0359491, [id number] #### [facility] (DEFAULT) [address] [place] [address] 11482 CBC w/ Auto Diffon 2 Erythrocyte distribution width (RBC) [Ratio] 17.9 % High 11.5-15.0 [facility] Comment on above: Performed By: #### 7 357253, 70528536, 7670515, 0892243877 #### [facility] (DEFAULT) [address] [place] [address] Hematocrit (Bld) [Volume fraction] 28.6 % Low 33.7-40.4 [facility] Comment on above: Performed By: #### 7 695615, 29523803, 3345684, 1715197712 #### [facility] (DEFAULT) [address] [place] [address] 86511 Hemoglobin (Bld) [Mass/Vol] 8.5 g/dL Low 11.3-15.9 [facility] Comment on above: Performed By: #### 7 543408, 63860171, 1865766, 0753982815 #### [facility] (DEFAULT) [address] [place] [address] Instr WBC 5.4 x10 Invalid Interpretation Code [facility] Comment on above: Performed By: #### 7 217967, 63593706, 8886182, 2116654905 #### [facility] (DEFAULT) [address] [place] [address] 23435 Man Diff? Auto Normal [facility] Comment on above: Performed By: #### 7 014716, 42882569, 7003849, 1016583751 #### [facility] (DEFAULT) [address] [place] [address] 00055 MCH (RBC) [Entitic mass] 28 pg Normal 24-34 [facility] Comment on above: Performed By: #### 7 753503, 21097441, 4991095, 3888237612 #### [facility] (DEFAULT) [address] [place] [address] 90865 MCHC (RBC) [Mass/Vol] 30 g/dL Normal 26-37 [facility] Comment on above: Performed By: #### 7 844293, 08495012, 3482385, [id number] #### [facility] (DEFAULT) [address] [place] [address] 67861 MCV (RBC) [Entitic vol] 94 fL Normal 81-100 [facility] Comment on above: Performed By: #### 7 907886, 14399095, 0249251, 3776354025 #### [facility] (DEFAULT) [address] [place] [address] 94675 Platelet 305 x10 Normal 138-427 [facility] Comment on above: Performed By: #### 7 209248, 95958122, 3197929, 1532121862 #### [facility] (DEFAULT) [address] [place] [address] Platelet mean volume (Bld) [Entitic vol] 9.8 fL Normal 6.3-10.2 [facility] Comment on above: Performed By: #### 7 955705, 80441818, 9748417, 9457738400 #### [facility] (DEFAULT) [address] [place] [address] 38118 RBC 3.03 x10 Low 3.70-5.30 [facility] Comment on above: Performed By: #### 7 927147, 74556967, 8108049, 0495676011 #### [facility] (DEFAULT) [address] [place] [address] 01020 WBC 5.4 x10 Normal 3.5-10.5 [facility] Comment on above: Performed By: #### 7 387628, 67175472, 3720024, 2387338587 #### [facility] (DEFAULT) [address] [place] [address] 43651 CMP Standardon 08-12-2021 Albumin [Mass/Vol] 3.3 g/dL Low 3.5-5.0 [facility] Comment on above: Performed By: #### 7 385714, 54191109, 6211321, 3590114053 ####[facility] (DEFAULT)[address] [place] [address] 25230 Albumin/Globulin [Mass ratio] 2.4 {ratio} Normal 1.4-2.6 [facility] Comment on above: Performed By: #### 7 517676, 34143590, 9061416, 9595659412 ####[facility] (DEFAULT)[address] [place] [address] 16641 Alk Phos 28 IU/L Low 32-91 [facility] Comment on above: Performed By: #### 7 337997, 44763532, 5147556, 0539197039 ####[facility] (DEFAULT)[address] [place] [address] 72988 ALT [Catalytic activity/Vol] 14.0 U/L Normal 14.0-54.0 [facility] Comment on above: Performed By: #### 7 748241, 30893109, 7095929, 4555320600 ####[facility] (DEFAULT)[address] [place] [address] 86226 Anion gap [Moles/Vol] 15.0 mmol/L Normal 5.0-19.0 [facility] Comment on above: Performed By: #### 7 328629, 20687568, 5616994, 7464478102 ####[facility] (DEFAULT)[address] [place] [address] 34935 AST [Catalytic activity/Vol] 27 U/L Normal 15-41 [facility] Comment on above: Performed By: #### 7 186137, 86622844, 7707399, 0982659090 ####[facility] (DEFAULT)[address] [place] [address] 57299 Bili Total 0.5 mg/dL Normal 0.3-1.2 [facility] Comment on above: Performed By: #### 7 266707, 32726813, 8231059, 4506171953 ####[facility] (DEFAULT)[address] [place] [address] 76821 Calcium [Mass/Vol] 6.7 mg/dL Low 8.9-10.3 [facility] Comment on above: Performed By: #### 7 777825, 93133830, 7935873, 8644513451 ####[facility] (DEFAULT)[address] [place] [address] 30369 Chloride [Moles/Vol] 103 mmol/L Normal 101-111 [facility] Comment on above: Performed By: #### 7 209276, 09031012, 6496439, 3569480151 ####[facility] (DEFAULT)[address] [place] [address] 20859 CO2 [Moles/Vol] 27 mmol/L Normal 21-32 [facility] Comment on above: Performed By: #### 7 650435, 17027774, 4778623, 3363131165 ####[facility] (DEFAULT)[address] [place] [address] 91372 Creatinine [Mass/Vol] 0.68 mg/dL Normal 0.60-1.30 [facility] Comment on above: Performed By: #### 7 319232, 21322335, 7343725, 5303111359 ####[facility] (DEFAULT)[address] [place] [address] 77062 Globulin (S) [Mass/Vol] 1.4 g/dL Low 1.5-4.3 [facility] Comment on above: Performed By: #### 7 724425, 03449142, 8986306, 7476582412 ####[facility] (DEFAULT)[address] [place] [address] 19317 Glucose [Mass/Vol] 76.0 mg/dL Normal 74.0-118.0 [facility] Comment on above: Performed By: #### 7 990583, 70459954, 1497740, 4090191328 ####[facility] (DEFAULT)[address] [place] [address] 02119 Osmolality 278 mOsm/L Invalid Interpretation Code [facility] Comment on above: Performed By: #### 7 167625, 85436768, 3795998, 9341264799 ####[facility] (DEFAULT)[address] [place] [address] 32704 Potassium [Moles/Vol] 4.3 mmol/L Normal 3.6-5.1 [facility] Comment on above: Result Comment: IV T herapy Performed By: #### 7 340689, 20286033, 9768148, 1440242329 ####[facility] (DEFAULT)[address] [place] [address] 53758 Protein [Mass/Vol] 4.7 g/dL Low 6.5-8.1 [facility] Comment on above: Performed By: #### 7 361204, 30407155, 0457855, 2789449983 ####[facility] (DEFAULT)[address] [place] [address] 13220 Sodium [Moles/Vol] 141.0 mmol/L Normal 136.0-144.0 [facility] Comment on above: Performed By: #### 7 329272, 17639002, 0052285, 9079943222 ####[facility] (DEFAULT)[address] [place] [address] Urea nitrogen [Mass/Vol] 8 mg/dL Normal 8-26 [facility] Comment on above: Performed By: #### 7 201911, 70855447, 4777002, 0245612031 ####[facility] (DEFAULT)[address] [place] [address] Urea nitrogen/Creatinin e [Mass ratio] 12.0 mg/mg Normal 4.6-16.2 [facility] Comment on above: Performed By: #### 7 462731, 58822875, 8213873, 4677023660 ####[facility] (DEFAULT)[address] [place] [address] 93993 eGFR Non AA >60 Invalid Interpretation Code [facility] Comment on above: Performed By: #### 7 917696, 07850719, 1267813, 2084009415 ####[facility] (DEFAULT)[address] [place] [address] eGFR AA >60 Invalid Interpretation Code [facility] Comment on above: Result Comment: Cigar Bander juanito Kidney disease could be indicated at eGFRs of less than 60 ml/min/1.73m2. Kidney Failure is indicated at less than 15 ml/min/1.73m2 Performed By: #### 7 724765, 54434068, 2890715, 3424679662 ####[facility] (DEFAULT)[address] [place] [address] Magnesiumon 08-12-2021 Magnesium [Mass/Vol] 1.21 mg/dL Low 1.80-2.50 [facility] Comment on above: Performed By: #### 7 037480, 78631318, 9353069, 9415909071 #### [facility] (DEFAULT) [address] [place] [address] .Auto Diff 1on 08-11-2021 Auto Gordon % 8 % Normal 1-12 [facility] Comment on above: Performed By: #### 2 640720, 7851201417, 9352735, 93595858 ####[facility] (DEFAULT)[address] [place] [address] Baso Abs# 0.0 x10 Normal 0.0-0.2 [facility] Comment on above: Performed By: #### 2 798391, 5685327669, 5303665, 48074776 ####[facility] (DEFAULT)[address] [place] [address] Basophils/100 WBC (Bld) 0.6 % Normal 0.2-2.0 [facility] Comment on above: Performed By: #### 2 179668, 2058822590, 9193960, 52753789 ####[facility] (DEFAULT)[address] [place] [address] Eos Abs# 0.2 x10 Normal 0.0-0.4 [facility] Comment on above: Performed By: #### 2 585661, 2016894221, 6607414, 46849499 ####[facility] (DEFAULT)[address] [place] [address] Eosinophils/100 WBC (Bld) 3.1 % Normal 0.9-4.0 [facility] Comment on above: Performed By: #### 2 019233, 5722975410, 6647970, 20555188 ####[facility] (DEFAULT)[address] [place] [address] Lymph Abs# 1.4 x10 Normal 1.3-2.9 [facility] Comment on above: Performed By: #### 2 452022, 6423076278, 0099088, 20552418 ####[facility] (DEFAULT)[address] [place] [address] Lymphocytes/100 WBC (Bld) 28 % Normal 14-48 [facility] Comment on above: Performed By: #### 2 876804, 8313820573, 6078359, 87567114 ####[facility] (DEFAULT)[address] [place] [address] Gordon Abs# 0.4 x10 Normal 0.0-0.8 [facility] Comment on above: Performed By: #### 2 828548, 2166288523, 6461587, 25491147 ####[facility] (DEFAULT)[address] [place] [address] Neut Abs# 3.2 x10 Normal 1.5-9.2 [facility] Comment on above: Performed By: #### 2 200772, 5506006788, 1927225, 82607749 ####[facility] (DEFAULT)[address] [place] [address] Neutrophils/100 WBC (Bld) 61 % Normal 44-88 [facility] Comment on above: Performed By: #### 2 473498, 7085402162, 2852029, 20678860 ####[facility] (DEFAULT)[address] [place] [address] Standardon 08-11-2021 eGFR Non AA >60 Invalid Interpretation Code [facility] Comment on above: Performed By: #### 2 839388, 4725099054, 9264210, 93882455 ####[facility] (DEFAULT)[address] [place] [address] eGFR AA >60 Invalid Interpretation Code [facility] Comment on above: Result Comment: Cigar Bander juanito Kidney disease could be indicated at eGFRs of less than 60 ml/min/1.73m2. Kidney Failure is indicated at less than 15 ml/min/1.73m2 Performed By: #### 2 469373, 6865642401, 2680926, 38800153 ####[facility] (DEFAULT)[address] [place] [address] Anion gap [Moles/Vol] 17.0 mmol/L Normal 5.0-19.0 [facility] Comment on above: Performed By: #### 2 183685, 9852494943, 9959692, 16871451 ####[facility] (DEFAULT)[address] [place] [address] 34965 Calcium [Mass/Vol] 6.7 mg/dL Low 8.9-10.3 [facility] Comment on above: Performed By: #### 2 245100, 9720284042, 9565689, 40132567 ####[facility] (DEFAULT)[address] [place] [address] 96269 Chloride [Moles/Vol] 104 mmol/L Normal 101-111 [facility] Comment on above: Performed By: #### 2 286099, 4077797741, 9774815, 08095965 ####[facility] (DEFAULT)[address] [place] [address] 98568 CO2 [Moles/Vol] 24 mmol/L Normal 21-32 [facility] Comment on above: Performed By: #### 2 274227, 9833215630, 3940226, 91217695 ####[facility] (DEFAULT)[address] [place] [address] 70061 Creatinine [Mass/Vol] 0.57 mg/dL Low 0.60-1.30 [facility] Comment on above: Performed By: #### 2 270201, 5870606536, 1900452, 41629405 ####[facility] (DEFAULT)[address] [place] [address] 31158 Glucose [Mass/Vol] 81.0 mg/dL Normal 74.0-118.0 [facility] Comment on above: Performed By: #### 2 819673, 7275126424, 9007614, 58469161 ####[facility] (DEFAULT)[address] [place] [address] 23491 Osmolality 278 mOsm/L Invalid Interpretation Code [facility] Comment on above: Performed By: #### 2 575149, 0419551422, 6103192, 45875385 ####[facility] (DEFAULT)[address] [place] [address] 43432 Potassium [Moles/Vol] 3.6 mmol/L Normal 3.6-5.1 [facility] Comment on above: Performed By: #### 2 220748, 9537644123, 0691194, 08645516 ####[facility] (DEFAULT)[address] [place] [address] 73947 Sodium [Moles/Vol] 141.0 mmol/L Normal 136.0-144.0 [facility] Comment on above: Performed By: #### 2 013574, 2192333624, 1367317, 07603285 ####[facility] (DEFAULT)[address] [place] [address] Urea nitrogen [Mass/Vol] 6 mg/dL Low 8-26 [facility] Comment on above: Performed By: #### 2 516738, 0815419912, 8970826, 54528547 ####[facility] (DEFAULT)[address] [place] [address] Urea nitrogen/Creatinin e [Mass ratio] 11.0 mg/mg Normal 4.6-16.2 [facility] Comment on above: Performed By: #### 2 644700, 0930124845, 9006091, 80970238 ####[facility] (DEFAULT)[address] [place] [address] CBC w/ Auto Diffon Erythrocyte distribution width (RBC) [Ratio] 17.9 % High 11.5-15.0 [facility] Comment on above: Performed By: #### 2 103790, 6824342942, 5915831, 64082087 ####[facility] (DEFAULT)[address] [place] [address] 13434 Hematocrit (Bld) [Volume fraction] 26.2 % Low 33.7-40.4 [facility] Comment on above: Performed By: #### 2 849258, 8050686468, 1494396, 93169490 ####[facility] (DEFAULT)[address] [place] [address] Hemoglobin (Bld) [Mass/Vol] 7.8 g/dL Low 11.3-15.9 [facility] Comment on above: Performed By: #### 2 046797, 9177886079, 9315635, 58692897 ####[facility] (DEFAULT)[address] [place] [address] 38317 Instr WBC 5.2 x10 Invalid Interpretation Code [facility] Comment on above: Performed By: #### 2 601963, 6578451216, 1110619, 31697121 ####[facility] (DEFAULT)[address] [place] [address] 35735 Man Diff? Auto Normal [facility] Comment on above: Performed By: #### 2 833028, 3650314265, 4953792, 32563014 ####[facility] (DEFAULT)[address] [place] [address] 99207 MCH (RBC) [Entitic mass] 28 pg Normal 24-34 [facility] Comment on above: Performed By: #### 2 257092, 9326635057, 0095250, 04319997 ####[facility] (DEFAULT)[address] [place] [address] 30499 MCHC (RBC) [Mass/Vol] 30 g/dL Normal 26-37 [facility] Comment on above: Performed By: #### 2 965302, 0986212845, 3341665, 66778956 ####[facility] (DEFAULT)[address] [place] [address] 97883 MCV (RBC) [Entitic vol] 93 fL Normal 81-100 [facility] Comment on above: Performed By: #### 2 877118, 0375212133, 7630638, 73310304 ####[facility] (DEFAULT)[address] [place] [address] 82239 Platelet 291 x10 Normal 138-427 [facility] Comment on above: Performed By: #### 2 329622, 4497811970, 8249087, 52229556 ####[facility] (DEFAULT)[address] [place] [address] 66426 Platelet mean volume (Bld) [Entitic vol] 9.6 fL Normal 6.3-10.2 [facility] Comment on above: Performed By: #### 2 358123, 8929967695, 4146338, 09544050 ####[facility] (DEFAULT)[address] [place] [address] 06035 RBC 2.82 x10 Low 3.70-5.30 [facility] Comment on above: Performed By: #### 2 869930, 4933054436, 1875949, 71824987 ####[facility] (DEFAULT)[address] [place] [address] 80220 WBC 5.2 x10 Normal 3.5-10.5 [facility] Comment on above: Performed By: #### 2 346901, 8231638460, 8179388, 43231099 ####[facility] (DEFAULT)[address] [place] [address] 90127 Magnesiumon 08-11-2021 Magnesium [Mass/Vol] 1.43 mg/dL Low 1.80-2.50 [facility] Comment on above: Performed By: #### 2 135252, 0466286173, 9806667, 43690578 ####[facility] (DEFAULT)[address] [place] [address] PTH, Intact LCon 08-11-2021 PTH, Intact LC 125 pg/mL High 15-65 [facility] Comment on above: Result Comment: Perf ormed At: [facility] [address] [id number] Brenna Iyer PhD Ph:[phone] Performed By: #### 2 [id number], 09083191 ####[facility] (DEFAULT)[address] [place] [address] 58671 .Auto Diff 1on 08-10-2021 Auto Gordon % 8 % Normal 1-12 [facility] Comment on above: Performed By: #### 1 140773507, 4445936865, 4440550, 85847391, 9693126, 2349432408 ####[facility] (DEFAULT)[address] [place] [address] 19272 Baso Abs# 0.0 x10 Normal 0.0-0.2 [facility] Comment on above: Performed By: #### 1 168980081, 3014527752, 4771340, 47244163, 7203077, 1973101121 ####[facility] (DEFAULT)[address] [place] [address] 90096 Basophils/100 WBC (Bld) 0.8 % Normal 0.2-2.0 [facility] Comment on above: Performed By: #### 1 869220075, 3806158466, 3552203, 08765624, 1016414, 7739864210 ####[facility] (DEFAULT)[address] [place] [address] 29292 Eos Abs# 0.2 x10 Normal 0.0-0.4 [facility] Comment on above: Performed By: #### 1 307651125, 5382213421, 0847404, 70196747, 7108023, 6750324470 ####[facility] (DEFAULT)[address] [place] [address] 54974 Eosinophils/100 WBC (Bld) 3.3 % Normal 0.9-4.0 [facility] Comment on above: Performed By: #### 1 009338402, 2246798582, 6216578, 06367546, 9877649, 9460906867 ####[facility] (DEFAULT)[address] [place] [address] 02474 Lymph Abs# 1.2 x10 Low 1.3-2.9 [facility] Comment on above: Performed By: #### 1 207772090, 4773991406, 8056552, 60440288, 5062094, 0239610428 ####[facility] (DEFAULT)[address] [place] [address] 66125 Lymphocytes/100 WBC (Bld) 24 % Normal 14-48 [facility] Comment on above: Performed By: #### 1 315514414, 5637844242, 3074645, 95064553, 1683359, 1684362690 ####[facility] (DEFAULT)[address] [place] [address] 23494 Gordon Abs# 0.4 x10 Normal 0.0-0.8 [facility] Comment on above: Performed By: #### 1 676132154, 2926708203, 5585603, 16809792, 9906839, 1057581199 ####[facility] (DEFAULT)[address] [place] [address] Neut Abs# 3.1 x10 Normal 1.5-9.2 [facility] Comment on above: Performed By: #### 1 334503431, 0660116893, 1875056, 65886894, 4561041, 5358043734 ####[facility] (DEFAULT)[address] [place] [address] Neutrophils/100 WBC (Bld) 64 % Normal 44-88 [facility] Comment on above: Performed By: #### 1 721103813, 6097982280, 0009606, 47023728, 9592380, 3592034734 ####[facility] (DEFAULT)[address] [place] [address] Anesthesia Noteon 08-10-2021 Anesthesia Note Patient: SUSAN RENE Age: 65 years Sex: FEMALE : 1955 Associated Diagnoses: None Author: Rony Ordonez MD Postoperative Information Post Operative Note: Post Anesthesia Care Unit. Health Status Allergies: Allergic Reactions (All) Unknown Aggrenox- No reactions were documented. Codeine- No reactions were documented. Lipitor- No reactions were documented. Niaspan ER- No reactions were documented. Serzone- No reactions were documented. Zocor- No reactions were documented. Canceled/Inactive Reactions (All) No Known Medication Allergies Physical Examination General: No acute distress. Respiratory: Respirations are non-labored. Review / Management Condition: Stable. Assessment Anesthetic outcome No anesthetic complications noted. Adequate pain relief. No Complaint of nausea and vomiting. Plan Transfer/ Discharge: Patient can be discharged from PACU when criteria met. Condition stable. [Electronically Signed on: 08/10/2021 10:12 EST] Rony Ordonez MD [Verified on: 08/10/2021 10:12 EST] Rony Ordonez MD [facility] Anesthesia Note Patient: SUSAN RENE Age: 65 years Sex: FEMALE : 1955 Associated Diagnoses: None Author: Rony Ordonez MD Postoperative Information Post Operative Note: Post Anesthesia Care Unit. Health Status Allergies: Allergic Reactions (All) Unknown Aggrenox- No reactions were documented. Codeine- No reactions were documented. Lipitor- No reactions were documented. Niaspan ER- No reactions were documented. Serzone- No reactions were documented. Zocor- No reactions were documented. Canceled/Inactive Reactions (All) No Known Medication Allergies Physical Examination General: No acute distress. Respiratory: Respirations are non-labored. Review / Management Condition: Stable. Assessment Anesthetic outcome No anesthetic complications noted. Adequate pain relief. No Complaint of nausea and vomiting. Plan Transfer/ Discharge: Patient can be discharged from PACU when criteria met. Condition stable. [Electronically Signed on: 08/10/2021 10:00 EST] Rony Ordonez MD [Verified on: 08/10/2021 10:00 EST] Rony Ordonez MD [facility] Anesthesia Note Patient: SUSAN RENE Age: 65 years Sex: FEMALE : 1955 Associated Diagnoses: None Author: Rony Ordonez MD Preoperative Information Anesthesia history: Patient history: No difficult intubation, No malignant hyperthermia. Family history: No malignant hyperthermia. Review of Systems Respiratory: recent COVID positive but no symptoms at present pulmonary payne, No shortness of breath, No apnea. Cardiovascular: FL, s/p CABG 7 years ago, s/p stent last year, orthostatic hypotension treated with midodrine and fludrocortisone, No chest pain. Gastrointestinal: currently treated for C.diff colitis, s/p gastric bypass , No heartburn. Neurologic: bilateral leg weakness after fall 5 weeks ago CVA with no residual effects. Health Status Allergies: Allergic Reactions (All) Unknown Aggrenox- No reactions were documented. Codeine- No reactions were documented. Lipitor- No reactions were documented. Niaspan ER- No reactions were documented. Serzone- No reactions were documented. Zocor- No reactions were documented. Canceled/Inactive Reactions (All) No Known Medication Allergies Current medications: Home Medications (18) Active albuterol 90 mcg/inh inhalation aerosol 2 puff(s), PRN, INH, q4hr calcium (as calcium citrate) 250 mg oral tablet 250 mg = 1 tab(s), PO, TID cholecalciferol 125 mcg (5000 intl units) oral tablet, disintegrating 125 mcg = 1 tab(s), PO, Daily clopidogrel 75 mg oral tablet 75 mg = 1 tab(s), PO, Daily Delsym Cough and Sore Throat 650 mg-20 mg/20 mL oral liquid 20 mL, PO, q4hr (int) Firvanq 25 mg/mL oral liquid 125 mg = 5 mL, PO, QID fludrocortisone 0.1 mg oral tablet 0.1 mg = 1 tab(s), PO, Daily magnesium oxide 400 mg oral tablet 400 mg = 1 tab(s), PO, Daily midodrine 5 mg oral tablet See Instructions Multi Vitamin+ See Instructions omeprazole 20 mg oral delayed release capsule 20 mg = 1 cap(s), PO, Daily ondansetron 4 mg oral tablet 4 mg = 1 tab(s), PRN, PO, TID Potassium Chloride (Qym-Dvjo-Egx 10) 10 mEq oral tablet, extended release 10 mEq = 1 tab(s), PO, TID ranolazine 500 mg oral tablet, extended release 500 mg = 1 tab(s), PO, q12hr (int) rosuvastatin 20 mg oral tablet 20 mg = 1 tab(s), PO, Daily sucralfate 1 g oral tablet 1 gm = 1 tab(s), PO, QIDACHS traZODone 150 mg oral tablet 150 mg = 1 tab(s), PO, Once a day (at bedtime) Tylenol 8 Hour 650 mg oral tablet, extended release 650 mg = 1 tab(s), PRN, PO, q8hr Problem list (past medical history): All Problems Hypothyroidism (acquired) / SNOMED CT 510565479 / Confirmed Pacemaker / SNOMED CT 5097728279 / Confirmed CVA (cerebral vascular accident) / SNOMED CT 135038407 / Confirmed Chronic kidney disease / SNOMED CT 7050059971 / Confirmed 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 Hysterectomy (987659067). Social History Electronic Cigarette/Vaping Assessment Electronic Cigarette Use: Never. Alcohol Assessment Use: Never. Tobacco Assessment Never (less than 100 in lifetime) Tobacco Use:. Substance Abuse Assessment Substance use: Never. Nutrition/Health Assessment Regular . Physical Examination VS/Measurements Vital Signs (last 24 hrs) Last Charted Temp Oral 36.6 DegC (AUG 10 03:59) Heart Rate Peripheral 87 bpm (AUG 10 03:59) Resp Rate 18 br/min (AUG 10 03:59) SBP 99 mmHg (AUG 10 03:59) DBP 68 mmHg (AUG 10 03:59) General: Alert and oriented, No acute distress. Airway: Mallampati classification: I (soft palate, fauces, uvula, pillars visible). Mouth: Within normal limits. Respiratory: Respirations are non-labored. Cardiovascular: Normal rate. Review / Management Results review: Lab results 08/10/2021 4:11 EST WBC 4.9 x103/mcL RBC 2.74 x106/mcL LOW Hgb 7.6 gm/dL LOW Hct 25.6 % LOW MCV 93 fL MCH 28 pg MCHC 30 gm/dL RDW 18.0 % HI Platelet 345 x103/mcL MPV 9.3 fL Auto Neut % 64 % Auto Lymph % 24 % Auto Gordon % 8 % Auto Eos % 3.3 % Auto Baso % 0.8 % Neut Abs# 3.1 x103/mcL Lymph Abs# 1.2 x103/mcL LOW Gordon Abs# 0.4 x103/mcL Eos Abs# 0.2 x103/mcL Baso Abs# 0.0 x103/mcL Sodium Level 142.0 mmol/L Potassium Level 3.8 mmol/L Chloride Level 105 mmol/L CO2 25 mmol/L Anion Gap 16.0 mmol/L Glucose Level 74.0 mg/dL BUN 6 mg/dL LOW Creatinine Level 0.64 mg/dL BUN/Creat Ratio 9.0 eGFR AA >60 mL/min/1.73m2 NA eGFR Non A (more content not included)... Normal [facility] CBC w/ Auto Diffon 2 Erythrocyte distribution width (RBC) [Ratio] 18.0 % High 11.5-15.0 [facility] Comment on above: Performed By: #### 1 [id number], [id number], 9161212, 91266443, 8746779, 6232551813 ####[facility] (DEFAULT)[address] [place] [address] Hematocrit (Bld) [Volume fraction] 25.6 % Low 33.7-40.4 [facility] Comment on above: Performed By: #### 1 [id number], 1225062534, 4016873, 34494874, 8487113, [id number] ####[facility] (DEFAULT)[address] [place] [address] Hemoglobin (Bld) [Mass/Vol] 7.6 g/dL Low 11.3-15.9 [facility] Comment on above: Performed By: #### 1 [id number], 4629524684, 8654693, 12736418, 8568818, 9522586684 ####[facility] (DEFAULT)[address] [place] [address] 48672 Instr WBC 4.9 x10 Invalid Interpretation Code [facility] Comment on above: Performed By: #### 1 [id number], 1590649464, 0663951, 70588973, 8091433, 2322275931 ####[facility] (DEFAULT)[address] [place] [address] 74934 Man Diff? Auto Normal [facility] Comment on above: Performed By: #### 1 [id number], 7782862990, 1839884, 09554614, 1791065, [id number] ####[facility] (DEFAULT)[address] [place] [address] 38335 MCH (RBC) [Entitic mass] 28 pg Normal 24-34 [facility] Comment on above: Performed By: #### 1 [id number], 4785633321, 8669208, 61513078, 8702561, 0388942112 ####[facility] (DEFAULT)[address] [place] [address] 34544 MCHC (RBC) [Mass/Vol] 30 g/dL Normal 26-37 [facility] Comment on above: Performed By: #### 1 [id number], 8104648125, 1457042, 73106120, 4989967, 0752929993 ####[facility] (DEFAULT)[address] [place] [address] 64521 MCV (RBC) [Entitic vol] 93 fL Normal 81-100 [facility] Comment on above: Performed By: #### 1 [id number], 3374316363, 7649241, 22932997, 0102095, 2741382704 ####[facility] (DEFAULT)[address] [place] [address] 89780 Platelet 345 x10 Normal 138-427 [facility] Comment on above: Performed By: #### 1 452152806, 5244658986, 5226597, 98260748, 5634417, 3740789165 ####[facility] (DEFAULT)[address] [place] [address] 41047 Platelet mean volume (Bld) [Entitic vol] 9.3 fL Normal 6.3-10.2 [facility] Comment on above: Performed By: #### 1 [id number], 5168957777, 5027255, 03959151, 4910713, 6842039203 ####[facility] (DEFAULT)[address] [place] [address] RBC 2.74 x10 Low 3.70-5.30 [facility] Comment on above: Performed By: #### 1 590074535, 3963162157, 0934962, 28179476, 9304422, 7918346100 ####[facility] (DEFAULT)[address] [place] [address] WBC 4.9 x10 Normal 3.5-10.5 [facility] Comment on above: Performed By: #### 1 [id number], 9562148318, 5584371, 56940539, 7102330, 9356802515 ####[facility] (DEFAULT)[address] [place] [address] Standardon 08-10-2021 eGFR Non AA >60 Invalid Interpretation Code [facility] Comment on above: Performed By: #### 1 [id number], 4934353595, 6491192, 44437925, 9811280, 0656793190 ####[facility] (DEFAULT)[address] [place] [address] eGFR AA >60 Invalid Interpretation Code [facility] Comment on above: Result Comment: Cigar Bander juanito Kidney disease could be indicated at eGFRs of less than 60 ml/min/1.73m2. Kidney Failure is indicated at less than 15 ml/min/1.73m2 Performed By: #### 1 [id number], 6603144303, 4203628, 33075928, 7984807, 2503827280 ####[facility] (DEFAULT)[address] [place] [address] Albumin [Mass/Vol] 3.3 g/dL Low 3.5-5.0 [facility] Comment on above: Performed By: #### 1 [id number], 6929526039, 1495658, 34987539, 7045397, 6254181424 ####[facility] (DEFAULT)[address] [place] [address] Albumin/Globulin [Mass ratio] 2.4 {ratio} Normal 1.4-2.6 [facility] Comment on above: Performed By: #### 1 671479006, 2424603145, 3173398, 13210610, 4430855, 2088629200 ####[facility] (DEFAULT)[address] [place] [address] Alk Phos 27 IU/L Low 32-91 [facility] Comment on above: Performed By: #### 1 657789167, 1461404438, 0633344, 68538722, 9252723, 9238639020 ####[facility] (DEFAULT)[address] [place] [address] ALT [Catalytic activity/Vol] 14.0 U/L Normal 14.0-54.0 [facility] Comment on above: Performed By: #### 1 803069368, 6274045049, 2390904, 26991915, 0884476, 1055327198 ####[facility] (DEFAULT)[address] [place] [address] Anion gap [Moles/Vol] 16.0 mmol/L Normal 5.0-19.0 [facility] Comment on above: Performed By: #### 1 587713863, 8036057367, 3487624, 72832846, 5614828, 1179415253 ####[facility] (DEFAULT)[address] [place] [address] AST [Catalytic activity/Vol] 23 U/L Normal 15-41 [facility] Comment on above: Performed By: #### 1 051678790, 5431347584, 4390150, 88092228, 2211627, 3613926128 ####[facility] (DEFAULT)[address] [place] [address] Bili Total 0.3 mg/dL Normal 0.3-1.2 [facility] Comment on above: Performed By: #### 1 033061501, 5966183755, 0643589, 69493211, 4868768, 2998128941 ####[facility] (DEFAULT)[address] [place] [address] 04148 Calcium [Mass/Vol] 6.4 mg/dL Low 8.9-10.3 [facility] Comment on above: Performed By: #### 1 561048701, 4117972207, 9272968, 71703841, 4668254, 2049658396 ####[facility] (DEFAULT)[address] [place] [address] 91972 Chloride [Moles/Vol] 105 mmol/L Normal 101-111 [facility] Comment on above: Performed By: #### 1 574347278, 0728306303, 4042359, 42992050, 3074320, 3610844099 ####[facility] (DEFAULT)[address] [place] [address] 77530 CO2 [Moles/Vol] 25 mmol/L Normal 21-32 [facility] Comment on above: Performed By: #### 1 442713292, 5055115561, 0483443, 78099613, 4651756, 5979977039 ####[facility] (DEFAULT)[address] [place] [address] 62271 Creatinine [Mass/Vol] 0.64 mg/dL Normal 0.60-1.30 [facility] Comment on above: Performed By: #### 1 480882483, 5202327604, 2015245, 36315344, 6063486, 3320500143 ####[facility] (DEFAULT)[address] [place] [address] 77239 Globulin (S) [Mass/Vol] 1.4 g/dL Low 1.5-4.3 [facility] Comment on above: Performed By: #### 1 095383644, 3827770309, 9916487, 34322158, 8860408, 8637461753 ####[facility] (DEFAULT)[address] [place] [address] 52429 Glucose [Mass/Vol] 74.0 mg/dL Normal 74.0-118.0 [facility] Comment on above: Performed By: #### 1 165838221, 0916717213, 2379979, 29840391, 3121940, 1744559270 ####[facility] (DEFAULT)[address] [place] [address] 55719 Osmolality 279 mOsm/L Invalid Interpretation Code [facility] Comment on above: Performed By: #### 1 [id number], 5036351701, 3553958, 00739414, 8578686, 6639628806 ####[facility] (DEFAULT)[address] [place] [address] 27180 Potassium [Moles/Vol] 3.8 mmol/L Normal 3.6-5.1 [facility] Comment on above: Performed By: #### 1 089819141, 0002617480, 1094147, 93958105, 0689020, 3154921214 ####[facility] (DEFAULT)[address] [place] [address] 89930 Protein [Mass/Vol] 4.7 g/dL Low 6.5-8.1 [facility] Comment on above: Performed By: #### 1 [id number], 0428373233, 6445055, 91650460, 4554801, 6810847255 ####[facility] (DEFAULT)[address] [place] [address] 72975 Sodium [Moles/Vol] 142.0 mmol/L Normal 136.0-144.0 [facility] Comment on above: Performed By: #### 1 [id number], 2199681518, 3882212, 32981189, 0318081, 4222765161 ####[facility] (DEFAULT)[address] [place] [address] 15111 Urea nitrogen [Mass/Vol] 6 mg/dL Low 8-26 [facility] Comment on above: Performed By: #### 1 092638125, 5567488342, 6581848, 92960291, 3556482, 0215167877 ####[facility] (DEFAULT)[address] [place] [address] 88702 Urea nitrogen/Creatinin e [Mass ratio] 9.0 mg/mg Normal 4.6-16.2 [facility] Comment on above: Performed By: #### 1 686972984, 3846860439, 6277011, 92839733, 4289983, 6484291043 ####[facility] (DEFAULT)[address] [place] [address] 55974 Extra Greyon 08-10-2021 Tube Collected Yes Invalid Interpretation Code [facility] Comment on above: Performed By: #### 2 [id number], 75442922 ####[facility] (DEFAULT)[address] [place] [address] 21859 Extra Redon 08-10-2021 Tube Collected Yes Invalid Interpretation Code [facility] Comment on above: Performed By: #### 1 [id number], 3013201635, 1103764, 54695321, 7118115, 3952325963 ####[facility] (DEFAULT)[address] [place] [address] 58745 MAGR Intraoperative Recordon 08-10-2021 MAGR Intraoperative Record MAGR Intra-Op Record Summary Primary Physician: Noe Reed MD Finalized Date/Time: 08/10/21 10:21:22 Pt. Name: RENEASHVIN /Sex: 1955 FEMALE Med Rec #: [id number] Physician: Norman Hughes MD Financial #: [id number] Pt. Type: I Room/Bed: [facility] Admit/Disch: 08/06/21 17:10:50 - Institution: Case Times MAGR Entry 1 Patient In Room Time 08/10/21 09:00:00 Out Room Time 08/10/21 10:01:00 Anesthesia Start Time 08/10/21 09:01:00 Stop Time 08/10/21 09:59:00 Surgery Start Time 08/10/21 09:12:00 Stop Time 08/10/21 09:54:00 Last Modified By: Helena Sandoval 08/10/21 10:19:16 General Comments: [id number] Case Attendance MAGR Entry 1 Entry 2 Entry 3 Case Attendee Noe Reed MD, Satya S MD Kokinda, Diane Role Performed Surgeon - Primary Anesthesiologist of Smooth Stucco Resurfacer Record Time In 08/10/21 09:00:00 08/10/21 09:00:00 08/10/21 09:00:00 Time Out 08/10/21 10:01:00 08/10/21 10:01:00 08/10/21 10:01:00 Procedure Esophagogastroduodenosco Esophagogastroduodenosco Esophagogastroduodenosco py and Colonosco py and Colonosco py and Colonosco Last Modified By: Helena Sandoval 08/10/21 Helena Sandoval 08/10/21 Helena Sandoval 08/10/21 10:19:10 10:19:10 10:19:10 Entry 4 Entry 5 Case Attendee Mandy Perdomo RN, Regina CST Role Performed Smooth Stucco Resurfacer Scrub Personnel Time In 08/10/21 09:00:00 08/10/21 09:00:00 Time Out 08/10/21 10:01:00 08/10/21 10:01:00 Procedure Esophagogastroduodenosco Esophagogastroduodenosco py and Colonosco py and Colonosco Last Modified By: Helena Sandoval 08/10/21 Helena Sandoval 08/10/21 10:19:10 10:19:10 Surgical Procedures MAGR Pre-Care Text: A.20 Verifies operative procedure, surgical site, and laterality Im.150 Develops individualized plan of care Entry 1 Procedure Esophagogastroduodenosco Primary Procedure Yes py and Colonoscopy Primary Surgeon Noe Reed MD Surgeon Comment EGD & COLONOSCOPY Start 08/10/21 09:12:00 Stop 08/10/21 09:54:00 Anesthesia Type MAC Surgical Service General Wound Class Clean-Contaminated Technique Details Closure Technique N/A Entire procedure No was performed via laparoscope or robotic assistance Last Modified By: Helena Sandoval 08/10/21 10:19:28 Post-Care Text: O.730 The patient's care is consistent with the individualized perioperative plan of care General Case Data MAGR Pre-Care Text: A.350.1 Classifies surgical wound Entry 1 Case Information OR MAGR OR 01 Case Level Level 3 Wound Class Clean-Contaminated Specialty General ASA Class 3 Diagnosis Preop Diagnosis GI Bleed Postop Same As Preop No Postop Diagnosis CECAL POLYPS Blunt or No Is the procedure No penetrating injury considered occured prior to Emergent/Urgent? the start of the procedure: Last Modified By: Helena Sandoval 08/10/21 10:20:26 Post-Care Text: O.760 Patient receives consistent and comparable care regardless of the setting Time Out MAGR Entry 1 Time out date/time 08/10/21 09:11:00 All team members Yes have introduced themselves by name and role Surgeon, Yes Surgeon reviews Yes anesthesia, nurse critical or confirm patient, unexpected steps, site, procedure operative duration, anticipated blood loss Anesthesia team Yes Nursing team Yes reviews any reviews sterility patient-specific (including concerns indicator results) and equipment issues/concerns Antibiotic Last Modified By: Helena Sandoval 08/10/21 10:19:54 Patient Positioning MAGR Pre-Care Text: A.280 Identifies baseline musculoskeletal status Im.40 Positions the patient Im.80 Applies safety devices Entry 1 Procedure Esophagogastroduodenosco Body Position Lateral py and Colonosco Left Arm Position Resting at Side Right Arm Position Resting at Side Left Leg Position Extended Right Leg Position Extended Feet Uncrossed? Yes Press Points Checked Yes Positioning Device Pillow Outcome Met (O.80) Yes Last Modified By: Helena Sandoval 08/10/21 09:17:12 Post-Care Text: E.290 Evaluates musculoskeletal status O.80 Patient is free from signs and symptoms of injury related to positioning General Comments: PILLOWS AND GEL BUMP BEHIND BACK Cautery MAGR Pre-Care Text: A.240 Assesses baseline skin condition A.40 Verifies presence of prosthetics or corrective devices Im.50 Implements protective measures to prevent injury due to electrical sources Entry 1 ESU Type Electrosurgical Unit Identification [id number] Number ESU Settings Syntegrity Cut Setting 10 Coag Setting 20 Grounding Pad Details Grounding Pad Yes Verified By Mandy Perdomo RN Needed? Grounding Pad Site Thigh Grounding Pad Site Left Detail Within Expiration Yes Date? Outcome Met (O.10) Yes Last Modified By: Helena Sandoval 08/10/21 09:56:01 Post-Care Text: E.10 Evaluates for signs and symptoms of physical injury to skin and tissue O.10 Patient is free from signs and symptoms of injury r (more content not included)... [facility] [Mass/Vol] 1.50 mg/dL Low 1.80-2.50 [facility] Comment on above: Performed By: #### 1 [id number], 8125266294, 4633357, 43841602, 7299538, 6328470460 ####[facility] (DEFAULT)[address] [place] [address] Nutrition Noteon 08-10-2021 Nutrition Note No new wts, Per inta ke records, Pt intake ranging 25-100%, eating better for lunch. Pt also taking supplements well. These appear to have been discontinued for scheduled colonscopy/EGD this am and not resumed. Per MD notes, tests unremarkable. With improving intake avg >/+ 50% of most meals, will hold off from re-adding Ensure. Will continue to monitor. [facility] Progress Note - Nurseon 07-15 Progress Note - Nurse pt returns from recovery. alert and drowsy. iv intact. pt able to tolerate water with no issues. denies pain. report received from holly perdomo RN. will continue to monitor. [Electronically Signed on: 08/10/2021 11:35 EST] Joslyn Roth RN [Verified on: 08/10/2021 11:35 EST] Joslyn Roth RN [facility] Telemetry Stripson Telemetry Strips [id number]#1.00OTGTIFF [facility] Telemetry Strips [id number]#1.00OTGTIFF [facility] .Auto Diff 1on 08-09-2021 Auto Gordon % 10 % Normal 07-25 [facility] Comment on above: Performed By: #### 2 962527, 9348801521, 0620215, 89043474 ####[facility] (DEFAULT)[address] [place] [address] 18748 Baso Abs# 0.0 x10 Normal 0.0-0.2 [facility] Comment on above: Performed By: #### 2 889792, 2237814069, 5740925, 66359038 ####[facility] (DEFAULT)[address] [place] [address] 44229 Basophils/100 WBC (Bld) 0.6 % Normal 0.2-2.0 [facility] Comment on above: Performed By: #### 2 443969, 2169684508, 4159067, 31806854 ####[facility] (DEFAULT)[address] [place] [address] Eos Abs# 0.2 x10 Normal 0.0-0.4 [facility] Comment on above: Performed By: #### 2 755799, 8731959592, 7144769, 60776779 ####[facility] (DEFAULT)[address] [place] [address] 11382 Eosinophils/100 WBC (Bld) 3.3 % Normal 0.9-4.0 [facility] Comment on above: Performed By: #### 2 643473, 9169042314, 0588879, 96696634 ####[facility] (DEFAULT)[address] [place] [address] 19742 Lymph Abs# 1.2 x10 Low 1.3-2.9 [facility] Comment on above: Performed By: #### 2 618829, 0299345211, 3564164, 36350219 ####[facility] (DEFAULT)[address] [place] [address] 98689 Lymphocytes/100 WBC (Bld) 21 % Normal 14-48 [facility] Comment on above: Performed By: #### 2 420583, 4122372919, 8881636, 94331755 ####[facility] (DEFAULT)[address] [place] [address] 70393 Gordon Abs# 0.5 x10 Normal 0.0-0.8 [facility] Comment on above: Performed By: #### 2 892538, 1526409975, 8147943, 96916611 ####[facility] (DEFAULT)[address] [place] [address] Neut Abs# 3.6 x10 Normal 1.5-9.2 [facility] Comment on above: Performed By: #### 2 151496, 2996299061, 9881577, 11898405 ####[facility] (DEFAULT)[address] [place] [address] Neutrophils/100 WBC (Bld) 65 % Normal 44-88 [facility] Comment on above: Performed By: #### 2 872765, 3189098503, 6628352, 39316142 ####[facility] (DEFAULT)[address] [place] [address] BMP Standardon 08-09-2021 eGFR Non AA >60 Invalid Interpretation Code [facility] Comment on above: Performed By: #### 2 351547, 8533194846, 2397811, 35271602 ####[facility] (DEFAULT)[address] [place] [address] eGFR AA >60 Invalid Interpretation Code [facility] Comment on above: Result Comment: Cigar Bander juanito Kidney disease could be indicated at eGFRs of less than 60 ml/min/1.73m2. Kidney Failure is indicated at less than 15 ml/min/1.73m2 Performed By: #### 2 606636, 7113355099, 0584700, 94749661 ####[facility] (DEFAULT)[address] [place] [address] Anion gap [Moles/Vol] 16.0 mmol/L Normal 5.0-19.0 [facility] Comment on above: Performed By: #### 2 155479, 9773056183, 9549198, 38766926 ####[facility] (DEFAULT)[address] [place] [address] Calcium [Mass/Vol] 6.2 mg/dL Low 8.9-10.3 [facility] Comment on above: Performed By: #### 2 050872, 8928919694, 9072500, 13639246 ####[facility] (DEFAULT)[address] [place] [address] 79476 Chloride [Moles/Vol] 107 mmol/L Normal 101-111 [facility] Comment on above: Performed By: #### 2 783158, 3858043647, 0852576, 29200250 ####[facility] (DEFAULT)[address] [place] [address] 14884 CO2 [Moles/Vol] 24 mmol/L Normal 21-32 [facility] Comment on above: Performed By: #### 2 853859, 0013445781, 8966132, 29026823 ####[facility] (DEFAULT)[address] [place] [address] 12766 Creatinine [Mass/Vol] 0.72 mg/dL Normal 0.60-1.30 [facility] Comment on above: Performed By: #### 2 566768, 0896352867, 4080443, 99349495 ####[facility] (DEFAULT)[address] [place] [address] 18833 Glucose [Mass/Vol] 79.0 mg/dL Normal 74.0-118.0 [facility] Comment on above: Performed By: #### 2 757078, [id number], 5651980, 45262231 ####[facility] (DEFAULT)[address] [place] [address] 51163 Osmolality 282 mOsm/L Invalid Interpretation Code [facility] Comment on above: Performed By: #### 2 471541, [id number], 3985287, 82521664 ####[facility] (DEFAULT)[address] [place] [address] 76958 Potassium [Moles/Vol] 3.9 mmol/L Normal 3.6-5.1 [facility] Comment on above: Performed By: #### 2 859315, 4000228400, 0914628, 47124947 ####[facility] (DEFAULT)[address] [place] [address] 73826 Sodium [Moles/Vol] 143.0 mmol/L Normal 136.0-144.0 [facility] Comment on above: Performed By: #### 2 097660, 6157862879, 2789284, 61946801 ####[facility] (DEFAULT)[address] [place] [address] Urea nitrogen [Mass/Vol] 8 mg/dL Normal 8-26 [facility] Comment on above: Performed By: #### 2 722777, [id number], 9971533, 74839399 ####[facility] (DEFAULT)[address] [place] [address] Urea nitrogen/Creatinin e [Mass ratio] 11.0 mg/mg Normal 4.6-16.2 [facility] Comment on above: Performed By: #### 2 279802, 3828496932, 5091690, 61383173 ####[facility] (DEFAULT)[address] [place] [address] CBC w/ Auto Diffon Erythrocyte distribution width (RBC) [Ratio] 17.9 % High 11.5-15.0 [facility] Comment on above: Performed By: #### 2 059504, 7085995195, 3211651, 83479257 ####[facility] (DEFAULT)[address] [place] [address] Hematocrit (Bld) [Volume fraction] 24.1 % Low 33.7-40.4 [facility] Comment on above: Performed By: #### 2 872611, 7700475344, 3671215, 12547589 ####[facility] (DEFAULT)[address] [place] [address] Hemoglobin (Bld) [Mass/Vol] 7.2 g/dL Low 11.3-15.9 [facility] Comment on above: Result Comment: RIGO barrientos pt received 1 unit on 08/06/21 Performed By: #### 2 943195, 9114113897, 1994419, 85755250 ####[facility] (DEFAULT)[address] [place] [address] Instr WBC 5.4 x10 Invalid Interpretation Code [facility] Comment on above: Performed By: #### 2 602851, [id number], 2916948, 73249954 ####[facility] (DEFAULT)[address] [place] [address] 90094 Man Diff? Auto Normal [facility] Comment on above: Performed By: #### 2 822855, 5644318265, 7255211, 48419827 ####[facility] (DEFAULT)[address] [place] [address] 55641 MCH (RBC) [Entitic mass] 28 pg Normal 24-34 [facility] Comment on above: Performed By: #### 2 394000, 2308229507, 2386289, 33982816 ####[facility] (DEFAULT)[address] [place] [address] MCHC (RBC) [Mass/Vol] 30 g/dL Normal 26-37 [facility] Comment on above: Performed By: #### 2 511152, 6614683150, 2978193, 87557280 ####[facility] (DEFAULT)[address] [place] [address] MCV (RBC) [Entitic vol] 94 fL Normal 81-100 [facility] Comment on above: Performed By: #### 2 662387, 7635045129, 4844359, 35901790 ####[facility] (DEFAULT)[address] [place] [address] 79057 Platelet 336 x10 Normal 138-427 [facility] Comment on above: Performed By: #### 2 266115, 2924290657, 7782991, 01486080 ####[facility] (DEFAULT)[address] [place] [address] 80640 Platelet mean volume (Bld) [Entitic vol] 9.5 fL Normal 6.3-10.2 [facility] Comment on above: Performed By: #### 2 895613, 5002017338, 3481142, 38011198 ####[facility] (DEFAULT)[address] [place] [address] RBC 2.57 x10 Low 3.70-5.30 [facility] Comment on above: Performed By: #### 2 395541, 7220365518, 8839347, 74666630 ####[facility] (DEFAULT)[address] [place] [address] WBC 5.4 x10 Normal 3.5-10.5 [facility] Comment on above: Performed By: #### 2 604152, 5973966025, 5603634, 90550349 ####[facility] (DEFAULT)[address] [place] [address] 46652 Cortisol LCon 08-09-2021 Cortisol LC 15.5 ug/dL Invalid Interpretation Code [facility] Comment on above: Result Comment: [place] isol AM 6.2 - 19.4 Cortisol PM 2.3 - 11.9 Performed At: [facility] [address] [id number] Brenna Iyer PhD Ph:[phone] Performed By: #### 7 708868, 70417687, 6455888, [id number] #### [facility] (DEFAULT) [address] [place] [address]116 Lab - AP Resultson 2 Lab - AP Results [id number]#1.00OTGTIFF Normal [facility] Magnesiumon 08-09-2021 Magnesium [Mass/Vol] 1.56 mg/dL Low 1.80-2.50 [facility] Comment on above: Performed By: #### 2 839506, 3871049010, 0955629, 80727105 ####[facility] (DEFAULT)[address] [place] [address] 48672 Telemetry Stripson 2 Telemetry Strips [id number]#1.00OTGTIFF Normal [facility] .Auto Diff 1on 08-08-2021 Auto Gordon % 8 % Normal -12 [facility] Comment on above: Performed By: #### 7 497143, 43874226, 0469811, 7795456707 #### [facility] (DEFAULT) [address] [place] [address] 10562 Baso Abs# 0.0 x10 Normal 0.0-0.2 [facility] Comment on above: Performed By: #### 7 514130, 45209867, 6129094, 8225264737 #### [facility] (DEFAULT) [address] [place] [address] 27626 Basophils/100 WBC (Bld) 0.8 % Normal 0.2-2.0 [facility] Comment on above: Performed By: #### 7 692340, 87316145, 8811283, 4871981123 #### [facility] (DEFAULT) [address] [place] [address] 93338 Eos Abs# 0.2 x10 Normal 0.0-0.4 [facility] Comment on above: Performed By: #### 7 404271, 88116708, 2482397, 5084547440 #### [facility] (DEFAULT) [address] [place] [address] 92384 Eosinophils/100 WBC (Bld) 2.6 % Normal 0.9-4.0 [facility] Comment on above: Performed By: #### 7 021277, 57272995, 3540242, 3302142661 #### [facility] (DEFAULT) [address] [place] [address] 23370 Lymph Abs# 1.8 x10 Normal 1.3-2.9 [facility] Comment on above: Performed By: #### 7 493484, 57219260, 1415419, 2267894705 #### [facility] (DEFAULT) [address] [place] [address] 70001 Lymphocytes/100 WBC (Bld) 27 % Normal 14-48 [facility] Comment on above: Performed By: #### 7 735229, 57797748, 8969412, 6567089270 #### [facility] (DEFAULT) [address] [place] [address] 53713 Gordon Abs# 0.5 x10 Normal 0.0-0.8 [facility] Comment on above: Performed By: #### 7 779436, 48039484, 8105027, 9676363757 #### [facility] (DEFAULT) [address] [place] [address] 59110 Neut Abs# 4.0 x10 Normal 1.5-9.2 [facility] Comment on above: Performed By: #### 7 990395, 63581868, 1721431, 3665878387 #### [facility] (DEFAULT) [address] [place] [address] Neutrophils/100 WBC (Bld) 62 % Normal 44-88 [facility] Comment on above: Performed By: #### 7 876363, 73936469, 0998042, 2411668660 #### [facility] (DEFAULT) [address] [place] [address] Ambulance Noteon 08-08-2021 Ambulance Note [id number]#1.00OTGTIFF Normal [facility] BMP Standardon 08-08-2021 eGFR Non AA >60 Invalid Interpretation Code [facility] Comment on above: Performed By: #### 7 210379, 48338506, 9054326, [id number] #### [facility] (DEFAULT) [address] [place] [address] eGFR AA >60 Invalid Interpretation Code [facility] Comment on above: Result Comment: Cigar Bander juanito Kidney disease could be indicated at eGFRs of less than 60 ml/min/1.73m2. Kidney Failure is indicated at less than 15 ml/min/1.73m2 Performed By: #### 7 423297, 60207424, 6988240, 1740694245 #### [facility] (DEFAULT) [address] [place] [address] Anion gap [Moles/Vol] 15.0 mmol/L Normal 5.0-19.0 [facility] Comment on above: Performed By: #### 7 740569, 94978433, 0959628, 1335387604 #### [facility] (DEFAULT) [address] [place] [address] 66631 Calcium [Mass/Vol] 5.9 mg/dL Critically abnormal 8.9-10.3 [facility] Comment on above: Result Comment: Crit ical CALC 5.9 result called and read back ok to: DEMETRA DAS RN 2S at: 05:25:23 08/08/2021 by: CDEAN Performed By: #### 7 205276, 27531824, 6637606, 7755482459 #### [facility] (DEFAULT) [address] [place] [address] 03573 Chloride [Moles/Vol] 109 mmol/L Normal 101-111 [facility] Comment on above: Performed By: #### 7 119029, 68956298, 9360122, 2958205822 #### [facility] (DEFAULT) [address] [place] [address] 70918 CO2 [Moles/Vol] 20 mmol/L Low 21-32 [facility] Comment on above: Performed By: #### 7 546943, 10917661, 7520048, 8916256943 #### [facility] (DEFAULT) [address] [place] [address] 04065 Creatinine [Mass/Vol] 0.68 mg/dL Normal 0.60-1.30 [facility] Comment on above: Performed By: #### 7 502616, 35852193, 8178203, 4698682498 #### [facility] (DEFAULT) [address] [place] [address] 43249 Glucose [Mass/Vol] 82.0 mg/dL Normal 74.0-118.0 [facility] Comment on above: Performed By: #### 7 314105, 40043659, 9459170, 8015003481 #### [facility] (DEFAULT) [address] [place] [address] 91667 Osmolality 277 mOsm/L Invalid Interpretation Code [facility] Comment on above: Performed By: #### 7 009049, 61344720, 2647589, 7500371610 #### [facility] (DEFAULT) [address] [place] [address] 05887 Potassium [Moles/Vol] 3.6 mmol/L Normal 3.6-5.1 [facility] Comment on above: Performed By: #### 7 100876, 96450086, 5096456, 5061854897 #### [facility] (DEFAULT) [address] [place] [address] 02178 Sodium [Moles/Vol] 140.0 mmol/L Normal 136.0-144.0 [facility] Comment on above: Performed By: #### 7 018845, 06859368, 6136533, 3619536074 #### [facility] (DEFAULT) [address] [place] [address] Urea nitrogen [Mass/Vol] 9 mg/dL Normal 8-26 [facility] Comment on above: Performed By: #### 7 785712, 01297784, 7818947, 6798571967 #### [facility] (DEFAULT) [address] [place] [address] Urea nitrogen/Creatinin e [Mass ratio] 13.0 mg/mg Normal 4.6-16.2 [facility] Comment on above: Performed By: #### 7 691482, 70735196, 1930245, 5106004956 #### [facility] (DEFAULT) [address] [place] [address] CBC w/ Auto Diffon Erythrocyte distribution width (RBC) [Ratio] 18.4 % High 11.5-15.0 [facility] Comment on above: Performed By: #### 1 016579975, 1522748, 73308209, 4589092 #### [facility] (DEFAULT) [address] [place] [address] Hematocrit (Bld) [Volume fraction] 31.6 % Low 33.7-40.4 [facility] Comment on above: Performed By: #### 1 307786393, 6212806, 29119937, 1658966 #### [facility] (DEFAULT) [address] [place] [address] Hemoglobin (Bld) [Mass/Vol] 9.6 g/dL Low 11.3-15.9 [facility] Comment on above: Performed By: #### 1 915325595, 4972571, 05075664, 6784796 #### [facility] (DEFAULT) [address] [place] [address] Instr WBC 6.5 x10 Invalid Interpretation Code [facility] Comment on above: Performed By: #### 1 950395728, 1670511, 75032616, 5633318 #### [facility] (DEFAULT) [address] [place] [address] 88367 Man Diff? Auto Normal [facility] Comment on above: Performed By: #### 1 908809220, 0919007, 40690682, 0085223 #### [facility] (DEFAULT) [address] [place] [address] 36342 MCH (RBC) [Entitic mass] 28 pg Normal 24-34 [facility] Comment on above: Performed By: #### 1 302891027, 6557648, 77366366, 4381384 #### [facility] (DEFAULT) [address] [place] [address] 61878 MCHC (RBC) [Mass/Vol] 30 g/dL Normal 26-37 [facility] Comment on above: Performed By: #### 1 824448096, 9817439, 41049151, 9031120 #### [facility] (DEFAULT) [address] [place] [address] 61557 MCV (RBC) [Entitic vol] 92 fL Normal 81-100 [facility] Comment on above: Performed By: #### 1 455200975, 5298985, 41282345, 2381867 #### [facility] (DEFAULT) [address] [place] [address] Platelet 450 x10 High 138-427 [facility] Comment on above: Performed By: #### 1 081404318, 9438365, 04276425, 5846515 #### [facility] (DEFAULT) [address] [place] [address] 59686 Platelet mean volume (Bld) [Entitic vol] 9.4 fL Normal 6.3-10.2 [facility] Comment on above: Performed By: #### 1 884111508, 5935445, 31550384, 9145229 #### [facility] (DEFAULT) [address] [place] [address] 17487 RBC 3.45 x10 Low 3.70-5.30 [facility] Comment on above: Performed By: #### 1 915527868, 9506731, 57948668, 7400157 #### [facility] (DEFAULT) [address] [place] [address] WBC 6.5 x10 Normal 3.5-10.5 [facility] Comment on above: Performed By: #### 1 143813688, 0218718, 18856116, 3787372 #### [facility] (DEFAULT) [address] [place] [address] 98038 CRPon 08-08-2021 CRP 0.6 mg/dL High <=0.5 [facility] Comment on above: Performed By: #### 7 173872, 91481034, 4403160, 3023999433 #### [facility] (DEFAULT) [address] [place] [address] 89326 Haptoglobin LCon 08-08-2021 Haptoglobin LC 162 mg/dL Invalid Interpretation Code 22-092 [facility] Comment on above: Result Comment: Perf ormed At: [facility] [place] [id number] Brenna Iyer PhD Ph:[phone] Performed By: #### 1 [id number], 4096450, 04536485, 9572748 #### [facility] (DEFAULT) [address] [place] [address] 49444 Magnesiumon 08-08-2021 Magnesium [Mass/Vol] 1.47 mg/dL Low 1.80-2.50 [facility] Comment on above: Performed By: #### 7 713927, 27385762, 0740881, 6719964322 #### [facility] (DEFAULT) [address] [place] [address] Nutrition Noteon 08-08-2021 SARS-CoV-2 (COVID-19) RNA JESSICA+probe Ql (Unsp spec) Pt admitted with anemia, elevated trop, received 1 unit PRBC. Pt testing + still for COVID, 20d out, no longer in isolation. No wt hx available. Pt placed on a Cardiac diet. Labs reviewed noting low Ca, Mg, alb 1.6 along w/ elevated T4, TSH. Suspect low alb multifactorial d/t COVID, low Ca, anemia, 1-3+ edema, ? 3rd spacing. Suspect low Ca/Mg also r/t recent c-diff hx; no further loose stools noted. Pt also w/ hx of gastric bypassl; MVI, Vit D, Ca listed in med hx. Fe and folic acid recently added. Attempted to speak w/ Pt re: appetite, Pt sleeping, would not wake when name called with only a few bites taken from pancake. Pt appeared to have some temporal lobe wasting, appears older then stated age. At this time, Pt appears at moderate to high nutrition risk. Will add Ensure Compact BIDWM and monitor acceptance. Normal [facility] Telemetry Stripson Telemetry Strips [id number]#1.00OTGTIFF Normal [facility] .Auto Diff 108-07-2021 Auto Gordon % 8 % Normal 12 [facility] Comment on above: Performed By: #### 1 [id number], 9473958, 28006879, 5791916 #### [facility] (DEFAULT) [address] [place] [address] 57574 Baso Abs# 0.0 x10 Normal 0.0-0.2 [facility] Comment on above: Performed By: #### 1 855400493, 6952691, 16885763, 5685681 #### [facility] (DEFAULT) [address] [place] [address] 18367 Basophils/100 WBC (Bld) 0.6 % Normal 0.2-2.0 [facility] Comment on above: Performed By: #### 1 939647357, 4863395, 25518885, 0613168 #### [facility] (DEFAULT) [address] [place] [address] 46953 Eos Abs# 0.1 x10 Normal 0.0-0.4 [facility] Comment on above: Performed By: #### 1 512914902, 9351280, 98136389, 5142168 #### [facility] (DEFAULT) [address] [place] [address] 69885 Eosinophils/100 WBC (Bld) 1.3 % Normal 0.9-4.0 [facility] Comment on above: Performed By: #### 1 534992312, 1091744, 94266891, 1038584 #### [facility] (DEFAULT) [address] [place] [address] Lymph Abs# 1.6 x10 Normal 1.3-2.9 [facility] Comment on above: Performed By: #### 1 032849253, 3949132, 35198284, 9102887 #### [facility] (DEFAULT) [address] [place] [address] Lymphocytes/100 WBC (Bld) 24 % Normal 14-48 [facility] Comment on above: Performed By: #### 1 122988152, 2982275, 64943471, 8652391 #### [facility] (DEFAULT) [address] [place] [address] Gordon Abs# 0.6 x10 Normal 0.0-0.8 [facility] Comment on above: Performed By: #### 1 035816060, 8460298, 15020766, 9812821 #### [facility] (DEFAULT) [address] [place] [address] Neut Abs# 4.4 x10 Normal 1.5-9.2 [facility] Comment on above: Performed By: #### 1 698042377, 4502847, 19284815, 3924541 #### [facility] (DEFAULT) [address] [place] [address] Neutrophils/100 WBC (Bld) 65 % Normal 44-88 [facility] Comment on above: Performed By: #### 1 137586325, 9978594, 55106673, 9358181 #### [facility] (DEFAULT) [address] [place] [address] CBC w/ Auto Diffon 2 Erythrocyte distribution width (RBC) [Ratio] 18.4 % High 11.5-15.0 [facility] Comment on above: Performed By: #### 1 619726933, 0866588, 74315221, 9535861 #### [facility] (DEFAULT) [address] [place] [address] Hematocrit (Bld) [Volume fraction] 33.1 % Low 33.7-40.4 [facility] Comment on above: Performed By: #### 1 013521404, 8924260, 38491172, 2904687 #### [facility] (DEFAULT) [address] [place] [address] 38379 Hemoglobin (Bld) [Mass/Vol] 9.9 g/dL Low 11.3-15.9 [facility] Comment on above: Result Comment: Charo ent received 1 unit of PRBC's on 08/06/21 Performed By: #### 1 072879305, 3431145, 73466433, 5145620 #### [facility] (DEFAULT) [address] [place] [address] 33706 Instr WBC 6.7 x10 Invalid Interpretation Code [facility] Comment on above: Performed By: #### 1 158420547, 3048357, 73044755, 7202517 #### [facility] (DEFAULT) [address] [place] [address] 00134 Man Diff? Auto Normal [facility] Comment on above: Performed By: #### 1 273195257, 2411774, 80376053, 0923448 #### [facility] (DEFAULT) [address] [place] [address] 72730 MCH (RBC) [Entitic mass] 28 pg Normal 24-34 [facility] Comment on above: Performed By: #### 1 629195048, 2700924, 69487634, 4164478 #### [facility] (DEFAULT) [address] [place] [address] 82544 MCHC (RBC) [Mass/Vol] 30 g/dL Normal 26-37 [facility] Comment on above: Performed By: #### 1 401613306, 8499860, 84900845, 4386315 #### [facility] (DEFAULT) [address] [place] [address] 36740 MCV (RBC) [Entitic vol] 92 fL Normal 81-100 [facility] Comment on above: Performed By: #### 1 570903630, 4833336, 96983844, 8079010 #### [facility] (DEFAULT) [address] [place] [address] 93512 Platelet 515 x10 High 138-427 [facility] Comment on above: Performed By: #### 1 555021872, 6733651, 28208492, 6795729 #### [facility] (DEFAULT) [address] [place] [address] 36848 Platelet mean volume (Bld) [Entitic vol] 9.0 fL Normal 6.3-10.2 [facility] Comment on above: Performed By: #### 1 895005629, 4498455, 33350251, 9255443 #### [facility] (DEFAULT) [address] [place] [address] RBC 3.60 x10 Low 3.70-5.30 [facility] Comment on above: Performed By: #### 1 519549280, 7172199, 68763622, 7811956 #### [facility] (DEFAULT) [address] [place] [address] WBC 6.7 x10 Normal 3.5-10.5 [facility] Comment on above: Performed By: #### 1 448899823, 1985179, 50720416, 7801144 #### [facility] (DEFAULT) [address] [place] [address] CMP Standardon 08-07-2021 Albumin [Mass/Vol] 1.6 g/dL Low 3.5-5.0 [facility] Comment on above: Order Comment: I had went upstairs to do patients Trop. at 2am. I also talked to Demetra the nurse about other blood work that had printed out and asked if they would like me to get it. Demetra said no and to wait til second trop. is due to get this blood work since patient had a sandwich for dinner. This is for ALL 2am blood work. CJ Performed By: #### 1 [id number], 6214268, 75499248, 6595494 #### [facility] (DEFAULT) [address] [place] [address] Albumin/Globulin [Mass ratio] 0.7 {ratio} Low 1.4-2.6 [facility] Comment on above: Order Comment: I had went upstairs to do patients Trop. at 2am. I also talked to Demetra the nurse about other blood work that had printed out and asked if they would like me to get it. Demetra said no and to wait til second trop. is due to get this blood work since patient had a sandwich for dinner. This is for ALL 2am blood work. CJ Performed By: #### 1 [id number], 6229115, 57887156, 1937470 #### [facility] (DEFAULT) [address] [place] [address] 35463 Alk Phos 48 IU/L Normal 32-91 [facility] Comment on above: Order Comment: I had went upstairs to do patients Trop. at 2am. I also talked to Demetra the nurse about other blood work that had printed out and asked if they would like me to get it. Demetra said no and to wait til second trop. is due to get this blood work since patient had a sandwich for dinner. This is for ALL 2am blood work. CJ Performed By: #### 1 [id number], 2014720, 99604449, 8536552 #### [facility] (DEFAULT) [address] [place] [address] 04761 ALT [Catalytic activity/Vol] 21.0 U/L Normal 14.0-54.0 [facility] Comment on above: Order Comment: I had went upstairs to do patients Trop. at 2am. I also talked to Demetra the nurse about other blood work that had printed out and asked if they would like me to get it. Demetra said no and to wait til second trop. is due to get this blood work since patient had a sandwich for dinner. This is for ALL 2am blood work. CJ Performed By: #### 1 [id number] #### [facility] (DEFAULT) [address] [place] [id number] Anion gap [Moles/Vol] 14.0 mmol/L Normal 5.0-19.0 [facility] Comment on above: Order Comment: I had went upstairs to do patients Trop. at 2am. I also talked to Demetra the nurse about other blood work that had printed out and asked if they would like me to get it. Demetra said no and to wait til second trop. is due to get this blood work since patient had a sandwich for dinner. This is for ALL 2am blood work. CJ Performed By: #### 1 [id number], [id number] #### [facility] (DEFAULT) [address] [place] [address] [id number] AST [Catalytic activity/Vol] 26 U/L Normal 15-41 [facility] Comment on above: Order Comment: I had went upstairs to do patients Trop. at 2am. I also talked to Demetra the nurse about other blood work that had printed out and asked if they would like me to get it. Demetra said no and to wait til second trop. is due to get this blood work since patient had a sandwich for dinner. This is for ALL 2am blood work. CJ Performed By: #### 1 [id number] #### [facility] (DEFAULT) [address] [place] [address] 93423 Bili Total 0.2 mg/dL Low 0.3-1.2 [facility] Comment on above: Order Comment: I had went upstairs to do patients Trop. at 2am. I also talked to Demetra the nurse about other blood work that had printed out and asked if they would like me to get it. Demetra said no and to wait til second trop. is due to get this blood work since patient had a sandwich for dinner. This is for ALL 2am blood work. CJ Performed By: #### 1 [id number], [id number], [id number] #### [facility] (DEFAULT) [address] [place] [address] 53128 Calcium [Mass/Vol] 5.9 mg/dL Critically abnormal 8.9-10.3 [facility] Comment on above: Order Comment: I had went upstairs to do patients Trop. at 2am. I also talked to Demetra the nurse about other blood work that had printed out and asked if they would like me to get it. Demetra said no and to wait til second trop. is due to get this blood work since patient had a sandwich for dinner. This is for ALL 2am blood work. CJ Result Comment: Fransico lts Called To Shiloh OBRIEN 2S By SANAZ And Read Back For Confirmation On 08/07/2021 09:25:59 EST. Performed By: #### 1 [id number], [id number] #### [facility] (DEFAULT) [address] [place] [address] 76562 Chloride [Moles/Vol] 108 mmol/L Normal 101-111 [facility] Comment on above: Order Comment: I had went upstairs to do patients Trop. at 2am. I also talked to Demetra the nurse about other blood work that had printed out and asked if they would like me to get it. Demetra said no and to wait til second trop. is due to get this blood work since patient had a sandwich for dinner. This is for ALL 2am blood work. CJ Performed By: #### 1 [id number], [id number], [id number] #### [facility] (DEFAULT) [address] [place] [address] 39981 CO2 [Moles/Vol] 21 mmol/L Normal 21-32 [facility] Comment on above: Order Comment: I had went upstairs to do patients Trop. at 2am. I also talked to Demetra the nurse about other blood work that had printed out and asked if they would like me to get it. Demetra said no and to wait til second trop. is due to get this blood work since patient had a sandwich for dinner. This is for ALL 2am blood work. CJ Performed By: #### 1 [id number], [id number], [id number] #### [facility] (DEFAULT) [address] [place] [address] 96282 Creatinine [Mass/Vol] 0.61 mg/dL Normal 0.60-1.30 [facility] Comment on above: Order Comment: I had went upstairs to do patients Trop. at 2am. I also talked to Demetra the nurse about other blood work that had printed out and asked if they would like me to get it. Demetra said no and to wait til second trop. is due to get this blood work since patient had a sandwich for dinner. This is for ALL 2am blood work. CJ Performed By: #### 1 [id number], [id number] #### [facility] (DEFAULT) [address] [place] [address] 23195 Globulin (S) [Mass/Vol] 2.3 g/dL Normal 1.5-4.3 [facility] Comment on above: Order Comment: I had went upstairs to do patients Trop. at 2am. I also talked to Demetra the nurse about other blood work that had printed out and asked if they would like me to get it. Demetra said no and to wait til second trop. is due to get this blood work since patient had a sandwich for dinner. This is for ALL 2am blood work. CJ Performed By: #### 1 [id number], [id number], [id number], [id number] #### [facility] (DEFAULT) [address] [place] [address] 09343 Glucose [Mass/Vol] 79.0 mg/dL Normal 74.0-118.0 [facility] Comment on above: Order Comment: I had went upstairs to do patients Trop. at 2am. I also talked to Demetra the nurse about other blood work that had printed out and asked if they would like me to get it. Demetra said no and to wait til second trop. is due to get this blood work since patient had a sandwich for dinner. This is for ALL 2am blood work. CJ Performed By: #### 1 [id number], [id number], [id number] #### [facility] (DEFAULT) [address] [place] [address] 74453 Osmolality 277 mOsm/L Invalid Interpretation Code [facility] Comment on above: Order Comment: I had went upstairs to do patients Trop. at 2am. I also talked to Demetra the nurse about other blood work that had printed out and asked if they would like me to get it. Demetra said no and to wait til second trop. is due to get this blood work since patient had a sandwich for dinner. This is for ALL 2am blood work. CJ Performed By: #### 1 [id number], [id number], [id number] #### [facility] (DEFAULT) [address] [place] [address] 35392 Potassium [Moles/Vol] 3.2 mmol/L Low 3.6-5.1 [facility] Comment on above: Order Comment: I had went upstairs to do patients Trop. at 2am. I also talked to Demetra the nurse about other blood work that had printed out and asked if they would like me to get it. Demetra said no and to wait til second trop. is due to get this blood work since patient had a sandwich for dinner. This is for ALL 2am blood work. CJ Result Comment: IV T herapy Performed By: #### 1 [id number], [id number], [id number], [id number] #### [facility] (DEFAULT) [address] [place] [address] 80157 Protein [Mass/Vol] 3.9 g/dL Low 6.5-8.1 [facility] Comment on above: Order Comment: I had went upstairs to do patients Trop. at 2am. I also talked to Demetra the nurse about other blood work that had printed out and asked if they would like me to get it. Demetra said no and to wait til second trop. is due to get this blood work since patient had a sandwich for dinner. This is for ALL 2am blood work. CJ Performed By: #### 1 [id number], [id number], [id number] #### [facility] (DEFAULT) [address] [place] [address] 44194 Sodium [Moles/Vol] 140.0 mmol/L Normal 136.0-144.0 [facility] Comment on above: Order Comment: I had went upstairs to do patients Trop. at 2am. I also talked to Demetra the nurse about other blood work that had printed out and asked if they would like me to get it. Demetra said no and to wait til second trop. is due to get this blood work since patient had a sandwich for dinner. This is for ALL 2am blood work. CJ Performed By: #### 1 [id number], [id number], [id number], [id number] #### [facility] (DEFAULT) [address] [place] [address] 78385 Urea nitrogen [Mass/Vol] 8 mg/dL Normal 8-26 [facility] Comment on above: Order Comment: I had went upstairs to do patients Trop. at 2am. I also talked to Demetra the nurse about other blood work that had printed out and asked if they would like me to get it. Demetra said no and to wait til second trop. is due to get this blood work since patient had a sandwich for dinner. This is for ALL 2am blood work. CJ Performed By: #### 1 [id number], [id number], [id number] #### [facility] (DEFAULT) [address] [place] [address] 93140 Urea nitrogen/Creatinin e [Mass ratio] 13.0 mg/mg Normal 4.6-16.2 [facility] Comment on above: Order Comment: I had went upstairs to do patients Trop. at 2am. I also talked to Demetra the nurse about other blood work that had printed out and asked if they would like me to get it. Demetra said no and to wait til second trop. is due to get this blood work since patient had a sandwich for dinner. This is for ALL 2am blood work. CJ Performed By: #### 1 [id number], [id number], [id number], [id number] #### [facility] (DEFAULT) [address] [place] [address] 15444 eGFR Non AA >60 Invalid Interpretation Code [facility] Comment on above: Order Comment: I had went upstairs to do patients Trop. at 2am. I also talked to Demetra the nurse about other blood work that had printed out and asked if they would like me to get it. Demetra said no and to wait til second trop. is due to get this blood work since patient had a sandwich for dinner. This is for ALL 2am blood work. CJ Performed By: #### 1 [id number], [id number], [id number], [id number] #### [facility] (DEFAULT) [address] [place] [address] 12115 eGFR AA >60 Invalid Interpretation Code [facility] Comment on above: Order Comment: I had went upstairs to do patients Trop. at 2am. I also talked to Demetra the nurse about other blood work that had printed out and asked if they would like me to get it. Demetra said no and to wait til second trop. is due to get this blood work since patient had a sandwich for dinner. This is for ALL 2am blood work. CJ Result Comment: Cigar Bander juanito Kidney disease could be indicated at eGFRs of less than 60 ml/min/1.73m2. Kidney Failure is indicated at less than 15 ml/min/1.73m2 Performed By: #### 1 [id number], [id number], [id number], [id number] #### [facility] (DEFAULT) [address] [place] [address] Consent Formson 08-07-2021 Consent Forms [id number] Normal [facility] ED Clinical Summaryon 2021 ED Clinical Summary [facility] - Emergency Department [address] [place] [id number] ED Clinical Summary PERSON INFORMATION Name: ASHVIN RENE Age: 65 Years Sex: FEMALE : 1955 MRN: Acct#: Visit Reason: General medical; ANEMIA, ELEVATED TROPONIN Arrival: 08/06/2021 17:10:50 Discharge: LOS: 000 05:17 Check In: 08/06/2021 17:10:50 Checkout:08/06/2021 22:27:57 Address: [address] [place] [address] PCP: TUSHAR SOLANO JR. PROVIDER INFORMATION Provider Role Assigned Unassigned Danni Souza ED PA 08/06/2021 17:12:50 08/06/2021 17:16:23 EVERTON NEGRON ED PA 08/06/2021 17:18:50 Jessica Al MANAGER PROGRESSIVE CARE Nurse 08/06/2021 17:45:27 08/06/2021 19:14:08 Gely Adan MANAGER PROGRESSIVE CARE Nurse 08/06/2021 19:14:09 VITALS INFORMATION Vital Sign Triage Latest Temperature Tympanic Temperature Temporal Artery Pulse Rate 108 bpm 104 bpm O2 Sat 99 % 99 % Respiratory Rate 18 br/min 16 br/min Blood Pressure /85 mmHg /85 mmHg MEDICAL INFORMATION Medications Given: Medication Dose Route magnesium oxide (magnesium oxide 400 mg oral tablet) 800 mg PO Allergy Information: Aggrenox; Lipitor; Serzone; Zocor; Niaspan ER; codeine PHYSICIAN DOCUMENTATION Patient: ASHVIN RENE Age: 65 years Sex: FEMALE : 1955 Associated Diagnoses: General medical; Anemia; Peripheral edema; GI bleed Author: EVERTON NEGRON Basic Information Time seen: Date & time 08/06/2021 17:19:00. History source: Patient, EMS. Arrival mode: Ambulance. History of Present Illness Patient is a 65-year-old female presenting to the emergency department from [facility] for evaluation of low blood pressure possibility of being jaundiced. Patient has a history of congestive heart failure, chronic kidney disease, anemia secondary to chronic kidney disease, hypothyroidism. Patient also currently being treated for C. difficile infection, vancomycin 125 mg twice daily and metronidazole 500 mg 3 times daily, recent Covid infection. Squad indicates they were told to the facility secondary to low blood pressure of 90/45 taken manually and they thought that the patient looked yellow. Squad indicated that this patient is new to the facility over the last week or 2. Patient denies any complaints other than having swelling in bilateral lower extremities states that she has chronic swelling secondary to congestive heart failure and indicates she is not currently on diuretics secondary to her servicing rep stating that she should not take these. She denies having any chest pains, shortness of breath, abdominal pains, nausea vomiting, problems with bowels or bladder states she feels fine. Squad indicated they retook her blood pressure once they arrived, took this manually twice and was 140/80. Review of Systems Constitutional symptoms: No fever, Skin symptoms: No rash, Eye symptoms: Vision unchanged. ENMT symptoms: No sore throat, no nasal congestion. Respiratory symptoms: No shortness of breath, no cough. Cardiovascular symptoms: Peripheral edema, no chest pain, no tachycardia. Gastrointestinal symptoms: No abdominal pain, no nausea, no vomiting. Genitourinary symptoms: No dysuria, Musculoskeletal symptoms: No back pain, no Muscle pain. Neurologic symptoms: No headache, no dizziness. Health Status Allergies: No active allergies have been recorded.. Past Medical/ Family/ Social History Medical history: No active or resolved past medical history items have been selected or recorded.. Social history: Social & Psychosocial Habits No Data Available . Physical Examination CONST: -Appears pale -Acute distress: No -Vitals: reviewed. SKIN: -Gross abnormalities: No EYES: -EOM intact, ARACELI: -Sclera conjunctiva: Unremarkable. ENT: -Pharynx is pink and dry NECK: -Supple (pbrn-rs-plapo): non-tender. CARD: -Rate and rhythm: Regular -Edema: Bilateral lower extremity pretibial edema 1+ -Calf pain: No RESP: -Respiratory effort and chest excursion with respirations: Normal -Breath sounds equal bilaterally: Clear -Wheezes: No -Rales: No -Speaking in full sentences BACK: -Signs of pain with movement: No ABD: -Distended: No -Deep palpation: Non-tender EXT: Gross appearance and use of all four extremities: Unremarkable NEURO: -Patient: alert -Gross CN or Focal Neuro deficits: No -Oriented to: person, place and time. -Appearance and judgment: appropriate. Rectal exam: Rectal exam was performed with patient's consent and nurse glass bead maker Jessica in the room the entire time -External rectal exam reveals no abnormalities -Digital rectal exam reveals no masses or polyps within reach of my finger, stool guaiac is positive Medical Decision Making 55-year-old female presenting to the emergency department for evaluation of low blood pressure taken manually at group home facility of 90/45 and possibility of looking mildly jaundiced. I discussed this with (more content not included)... [facility] ED Patient Education Noteon 08-07-2021 ED Patient Education Note Education Materials [facility] ED Patient Summaryon 022 ED Patient Summary [facility] - Emergency Department [address] [place] [address] PATIENT DISCHARGE INSTRUCTIONS Patient Information Name: ASHVIN RENE Age: 65 Years Date of : 1955 Reason For Visit: General medical; ANEMIA, ELEVATED TROPONIN Arrival Time: 08/06/2021 17:10:50 Primary Care Physician: TUSHAR SOLANO JR. Attending Physician: Waqas Castro MD Comment: Visit Diagnosis: Diagnoses This Visit Anemia (D64.9) General medical ([id number]) GI bleed (K92.2) Peripheral edema (R60.9) Prescription Information: If you have been given a prescription for narcotics, seek immediate medical attention if you have any difficulty breathing or any sudden status changes such as confusion and sleepiness. If you or anyone you know is experiencing suicidal thoughts, mental health, alcohol and/or drug addiction problems; contact the [facility] Health & Recovery Board [facility] 03/02 Crisis Hotline -Text 4HOPE to 793221. If you received any narcotics, sedation, or any other medication that causes drowsiness for the next 24 hours, unless otherwise directed: ? Do not drive a car. ? Do not operate machinery such as power tools, lawn mowers, drills, sewing machines, or stoves ? Avoid alcoholic beverages and drugs for allergies, nerves, or sleep ? Do not make important personal or business decisions or sign any legal documents Medication Information: The exam and treatment you received today in the [facility] Emergency Department were for an urgent problem and are not intended as complete care. It is important for you to follow up with a doctor, nurse practitioner, or physician?s rehab care assistant for ongoing care. If your symptoms become worse or you do not improve as expected and you are unable to reach your usual health care provider, you should return to the Emergency Department, we are available 24 hours a day. For those patients who have received Radiology results, the interpretation of your X-ray as given to you by our Emergency Department physician is only a preliminary report. The Radiologist will review your films and if there is a change in the diagnosis you will be notified by phone. Please make sure you have provided a working phone number so we can reach you if necessary. In the event that you had a lab culture while you were a patient in the Emergency Department, you will be notified by phone if there is a need to change your antibiotic. Please make sure you have provided a working phone number so we can reach you if necessary. [facility] Emergency Department has provided you with a complete list of medications post discharge. Please inform your wedding coordinator/provider of your visit and for further instruction on these medications. Any specific questions regarding your chronic medications and dosages should be discussed with your primary care physician(s) and/or pharmacist. New Medications Printed Prescriptions magnesium oxide (magnesium oxide 400 mg oral tablet) 1 tab(s) Oral every day for 7 Days. Refills: 0. Medications to Continue That Have Not Changed Other Medications acetaminophen-dextromethor olvera (Delsym Cough and Sore Throat 650 mg-20 mg/20 mL oral liquid) 20 Milliliter Oral every 4 hours. albuterol (Albuterol (Eqv-ProAir HFA) 90 mcg/inh inhalation aerosol) calcium citrate (calcium (as calcium citrate) 250 mg oral tablet) cholecalciferol (cholecalciferol 125 mcg (5000 intl units) oral tablet, disintegrating) 1 tab(s) Oral every day. clopidogrel (clopidogrel 75 mg oral tablet) fludrocortisone (fludrocortisone 0.1 mg oral tablet) metroNIDAZOLE (metroNIDAZOLE 500 mg oral tablet) 1 tab(s) Oral 3 times a day. midodrine (midodrine 5 mg oral tablet) multivitamin (Multi Vitamin+) omeprazole (omeprazole 20 mg oral delayed release capsule) 1 cap(s) Oral every day. ondansetron (ondansetron 4 mg oral tablet) potassium chloride (Potassium Chloride (Eut-Wbfd-Pvy 10) 10 mEq oral tablet, extended release) 1 tab(s) Oral 2 times a day. ranolazine (ranolazine 500 mg oral tablet, extended release) rosuvastatin (rosuvastatin 20 mg oral tablet) sucralfate (sucralfate 1 g oral tablet) traZODone (traZODone 150 mg oral tablet) vancomycin (Firvanq 25 mg/mL oral liquid) 5 Milliliter Oral 4 times a day. Visit Information Allergies: Substance Reaction Symptoms Type Comments Aggrenox Drug codeine Drug Lipitor Drug Niaspan ER Drug Serzone Drug Zocor Drug Vital Signs: Vitals and Measurements this Visit (last charted value for your 08/06/2021 visit) Vital Signs This Visit Temperature Oral: 37.0 DegC Peripheral Pulse Rate: 104 bpm Respiratory Rate: 16 br/min Systolic Blood Pressure: 109 mmHg Diastolic Blood Pressure: 79 mmHg SpO2: 99 % Oxygen Therapy: Room air Measurements This Visit Height/Length Dosin.480 cm Height/Length Estimated: 157.480 cm Weight Dosin. (more content not included)... Normal [facility] Ferritinon 08-07-2021 Ferritin [Mass/Vol] 14.2 ng/mL Normal 12.0-150.0 [facility] Comment on above: Performed By: #### 1 [id number], [id number], [id number], [id number] #### [facility] (DEFAULT) [address] [place] [address] Folateon 08-07-2021 Folic Acid Level 6.62 ng/mL Normal 5.90-24.80 [facility] Comment on above: Result Comment: Norm al folate results > 3.0 ng/mL. Performed By: #### 1 [id number], [id number], [id number], [id number] #### [facility] (DEFAULT) [address] [place] [address] 77569 Free T4on 08-07-2021 Free T4 [Mass/Vol] 1.30 ng/dL High 0.61-1.12 [facility] Comment on above: Result Comment: Spec imens that contain high levels of Biotin may cause false high results Performed By: #### 1 [id number], [id number], [id number], [id number] #### [facility] (DEFAULT) [address] [place] [address] Iron Profileon 08-07-2021 Iron [Mass/Vol] 24.0 ug/dL Low 28.0-170.0 [facility] Comment on above: Performed By: #### 1 [id number], [id number], [id number], [id number] #### [facility] (DEFAULT) [address] [place] [address] Iron Sat 15 % Low 20-55 [facility] Comment on above: Performed By: #### 1 [id number], [id number], [id number], [id number] #### [facility] (DEFAULT) [address] [place] [address] TIBC 158 mcg/dL Low 250-400 [facility] Comment on above: Performed By: #### 1 [id number], [id number], [id number], [id number] #### [facility] (DEFAULT) [address] [place] [address] 02470 Transferrin [Mass/Vol] 113.1 mg/dL Low 192.0-382.0 [facility] Comment on above: Performed By: #### 1 [id number], [id number], [id number], [id number] #### [facility] (DEFAULT) [address] [place] [address] LDHon 08-07-2021 LDH 299.0 IU/L High 98.0-192.0 [facility] Comment on above: Performed By: #### 1 [id number], [id number], [id number], [id number] #### [facility] (DEFAULT) [address] [place] [address] Magnesiumon 08-07-2021 Magnesium [Mass/Vol] 0.98 mg/dL Low 1.80-2.50 [facility] Comment on above: Performed By: #### 1 [id number], [id number], [id number], [id number] #### [facility] (DEFAULT) [address] [place] [address] Occult Blood, Fecalon 2021 Internal QC OK? Pass Normal [facility] Comment on above: Performed By: #### 1 [id number], [id number], [id number], [id number] #### [facility] (DEFAULT) [address] [place] [address] Occult Bld Stl Positive Abnormal Negative [facility] Comment on above: Performed By: #### 1 [id number], [id number], [id number], [id number] #### [facility] (DEFAULT) [address] [place] [address] Path Reviewon 08-07-2021 Pathology Test See Report Normal [facility] Comment on above: Result Comment: Sepa rate report to follow. Sent to [facility] for Path Review Performed By: #### 1 [id number], [id number], [id number], [id number] #### [facility] (DEFAULT) [address] [place], [place] [id number] Retic Counton 08-07-2021 Reticulocyte 2.8 % High 0.5-1.5 [facility] Comment on above: Performed By: #### 1 [id number], [id number], [id number], [id number] #### [facility] (DEFAULT) [address] [place] [address] TSH w/ Reflex to FT4on 08-07 TSH Qn 16.54 m[IU]/L High 0.45-5.33 [facility] Comment on above: Result Comment: Gene ral Population (males and non- females, aged 21-88) 0.45 - 5.33 Females, 1st Trimester 0.05 - 3.70 Females, 2nd Trimester 0.31 - 4.35 Females, 3rd Trimester 0.41 - 5.18 Performed By: #### 1 [id number], [id number], [id number], [id number] #### [facility] (DEFAULT) [address] [place] [address] Telemetry Stripson 2 Telemetry Strips [id number] Normal [facility] TnI HSon 08-07-2021 Troponin I High Sensitivity 16 pg/mL Critically abnormal <=15 [facility] [facility] Comment on above: Result Comment: Elev ated hsTnI 16 result called and read back ok to: SHILOH RN 2S at: 09:07:23 08/07/2021 by: TAPAN Male Baseline Delta 1Hr (Note pg/mL=ng/L) <20pg/mL 50-60% >20pg/mL 20% Female Baseline Delta 1Hr <15pg/mL 50-60% >15pg/mL 20% Other Baseline Delta 1Hr <18ng/mL 50-60% >18ng/mL 20% ([employer] Guidelines February 2018) Performed By: #### 1 [id number], [id number], [id number], [id number] #### [facility] (DEFAULT) [address] [place] [address] Troponin I High Sensitivity 19 pg/mL Critically abnormal <=15 [facility] Comment on above: Result Comment: Elev ated hsTnI 19 result called and read back ok to: DEMETRA DAS RN 2S at: 02:25:36 08/07/2021 by: SYBIL Male Baseline Delta 1Hr (Note pg/mL=ng/L) <20pg/mL 50-60% >20pg/mL 20% Female Baseline Delta 1Hr <15pg/mL 50-60% >15pg/mL 20% Other Baseline Delta 1Hr <18ng/mL 50-60% >18ng/mL 20% ([employer] Guidelines February 2018) Performed By: #### 7 [id number], [id number], 9296624, [id number] #### [facility] (DEFAULT) [address] [place] [address] US Echocardiogram Completeon 08-07-2021 US Echocardiogram Complete DATE OF STUDY: 08/07/2021 US ECHOCARDIOGRAM COMPLETE Aortic root: 2.38 IVSd: 1.1 LVPWd: 0.96 CHAMBER SIZES: The left ventricle is normal in size. The left atrium is normal in size. The right ventricle and right atrium are normal in size. The aortic root is normal in size. WALL THICKNESS: Within normal limits. LEFT VENTRICULAR FUNCTION: Overall, the left ventricular function is low normal. Apical images are foreshortened and the apex is not well-visualized with no specific wall motion abnormalities present. The estimated ejection fraction is 50-55%. VALVES: There is mitral annular calcification. The mitral valve opens adequately. The aortic valve is trileaflet and opens adequately. The tricuspid valve and pulmonic valves are grossly normal. DOPPLER: There is trace mitral regurgitation. There is likely mild mitral stenosis. There are no accelerated velocities across the aortic valve. There is mild to moderate aortic insufficiency. There is mild tricuspid regurgitation. The velocities across the tricuspid valve are within normal limits. Trivial pericardial effusion is present. Pleural effusion is noted. IMPRESSION: 1. Normal left ventricular size and systolic function. 2. Mild mitral stenosis. 3. Mild to moderate aortic insufficiency. 4. Mild tricuspid regurgitation. Tim Harrington MD JOB #: [id number] bk Final Dictated by: Tim Harrington MD Dictated DT/TM: 08/08/21 8:50 Signed (Electronic Signature): Tim Harrington MD 08/09/21 8:25 am Normal [facility] Vit B12 Lvlon 08-07-2021 Vit B12 853 Normal 180-914 [facility] Comment on above: Performed By: #### 1 [id number], [id number], [id number], [id number] #### [facility] (DEFAULT) [address] [place] [address] .Auto Diff on 08-06-2021 Auto Gordon % 7 % Normal 1-12 [facility] Comment on above: Performed By: #### 7 172244, 75865562, 7424761, [id number] #### [facility] (DEFAULT) [address] [place] [address] Baso Abs# 0.0 x10 Normal 0.0-0.2 [facility] Comment on above: Performed By: #### 7 654149, 94555901, 6836280, [id number] #### [facility] (DEFAULT) [address] [place] [address] Basophils/100 WBC (Bld) 0.5 % Normal 0.2-2.0 [facility] Comment on above: Performed By: #### 7 688559, 31901305, 5327526, [id number] #### [facility] (DEFAULT) [address] [place] [address] Eos Abs# 0.0 x10 Normal 0.0-0.4 [facility] Comment on above: Performed By: #### 7 234446, 75247390, 1519048, [id number] #### [facility] (DEFAULT) [address] [place] [address] Eosinophils/100 WBC (Bld) 0.7 % Low 0.9-4.0 [facility] Comment on above: Performed By: #### 7 931936, 01899645, 6619288, [id number] #### [facility] (DEFAULT) [address] [place] [address] Lymph Abs# 1.2 x10 Low 1.3-2.9 [facility] Comment on above: Performed By: #### 7 387446, 19363627, 0289835, [id number] #### [facility] (DEFAULT) [address] [place] [address] 95707 Lymphocytes/100 WBC (Bld) 16 % Normal 14-48 [facility] Comment on above: Performed By: #### 7 975400, 84358587, 2480471, [id number] #### [facility] (DEFAULT) [address] [place] [address] Gordon Abs# 0.5 x10 Normal 0.0-0.8 [facility] Comment on above: Performed By: #### 7 586058, 11257984, 9264297, [id number] #### [facility] (DEFAULT) [address] [place] [address] Neut Abs# 5.7 x10 Normal 1.5-9.2 [facility] Comment on above: Performed By: #### 7 730653, 28186992, 5613803, [id number] #### [facility] (DEFAULT) [address] [place] [address] Neutrophils/100 WBC (Bld) 76 % Normal 44-88 [facility] Comment on above: Performed By: #### 7 892150, 58460973, 6351514, [id number] #### [facility] (DEFAULT) [address] [place] [address] ABORhon 08-06-2021 ABO and Rh group Nom (Bld) Hx Check: Not Found Anti-A: 0 Anti-B: 0 Anti-D: 4+ DCon: 0 A1: 4+ B: 4+ ABORh Interp: O POS Invalid Interpretation Code [facility] Comment on above: Performed By: #### 7 412221, 04419441, 0153061, [id number] #### [facility] (DEFAULT) [address] [place] [address] ABORh Retypeon 08-06-2021 ABO and Rh group Nom (Bld) Ordered by Discern. Anti-A: 0 Anti-B: 0 Anti-D: 4+ DCon: 0 A1: 3+ B: 3+ ABORh Retype: O POS Invalid Interpretation Code [facility] Comment on above: Performed By: #### 7 099308, 14779297, 9147546, [id number] #### [facility] (DEFAULT) [address] [place] [address] 21436 ABSC Gelon 08-06-2021 ABSC Gel Negative Normal [facility] Comment on above: Performed By: #### 7 333758, 67898265, 4894575, [id number] #### [facility] (DEFAULT) [address] [place] [address] BNP.on 08-06-2021 Natriuretic peptide B (Bld) [Mass/Vol] 123.0 pg/mL High 0.0-100.0 [facility] Comment on above: Result Comment: BNP results greater than 100 pg/mL are considered abnormal and suggestive of patients with CHF. Higher BNP concentrations measured in the first 72 hours after an acute coronary syndorme are associated with an increased risk of , myocardial infarction, and CHF. Performed By: #### 7 448796, 03189506, 6153145, [id number] #### [facility] (DEFAULT) [address] [place] [address] Blood Bank IDon 08-06-2021 Blood Bank ID BBID: [id number] Invalid Interpretation Code [facility] Comment on above: Performed By: #### 7 119437, 37932002, 5020114, [id number] #### [facility] (DEFAULT) [address] [place] [address] CBC w/ Auto Diffon Erythrocyte distribution width (RBC) [Ratio] 19.4 % High 11.5-15.0 [facility] Comment on above: Performed By: #### 7 798729, 67119523, 7261102, [id number] #### [facility] (DEFAULT) [address] [place] [address] Hematocrit (Bld) [Volume fraction] 24.7 % Low 33.7-40.4 [facility] Comment on above: Performed By: #### 7 129080, 87589200, 4907482, [id number] #### [facility] (DEFAULT) [address] [place] [address] Hemoglobin (Bld) [Mass/Vol] 7.4 g/dL Low 11.3-15.9 [facility] Comment on above: Performed By: #### 7 092496, 69101141, 2132588, [id number] #### [facility] (DEFAULT) [address] [place] [address] 86561 Instr WBC 7.5 x10 Invalid Interpretation Code [facility] Comment on above: Performed By: #### 7 660470, 17226953, 5897075, [id number] #### [facility] (DEFAULT) [address] [place] [address] 84345 Man Diff? RBC Morph Only Normal [facility] Comment on above: Performed By: #### 7 469153, 20894480, 1120831, [id number] #### [facility] (DEFAULT) [address] [place] [address] 02633 MCH (RBC) [Entitic mass] 28 pg Normal 24-34 [facility] Comment on above: Performed By: #### 7 624107, 21523267, 1091066, [id number] #### [facility] (DEFAULT) [address] [place] [address] 26376 MCHC (RBC) [Mass/Vol] 30 g/dL Normal 26-37 [facility] Comment on above: Performed By: #### 7 617600, 20613674, 8137917, 4309122552 #### [facility] (DEFAULT) [address] [place] [address] 19161 MCV (RBC) [Entitic vol] 92 fL Normal 81-100 [facility] Comment on above: Performed By: #### 7 706936, 54792087, 9987513, [id number] #### [facility] (DEFAULT) [address] [place] [address] 78373 Platelet 533 x10 High 138-427 [facility] Comment on above: Performed By: #### 7 821962, 84297096, 8248838, [id number] #### [facility] (DEFAULT) [address] [place] [address] 56345 Platelet mean volume (Bld) [Entitic vol] 8.8 fL Normal 6.3-10.2 [facility] Comment on above: Performed By: #### 7 996513, 74466394, 0327570, [id number] #### [facility] (DEFAULT) [address] [place] [address] 08345 RBC 2.67 x10 Low 3.70-5.30 [facility] Comment on above: Performed By: #### 7 171492, 22509806, 8658366, [id number] #### [facility] (DEFAULT) [address] [place] [address] 41503 WBC 7.5 x10 Normal 3.5-10.5 [facility] Comment on above: Performed By: #### 7 614197, 87271150, 8203121, 8098084215 #### [facility] (DEFAULT) [address] [place] [address] 27088 CMP Standardon 08-06-2021 eGFR Non AA >60 Invalid Interpretation Code [facility] Comment on above: Performed By: #### 7 078698, 25080860, 8535994, [id number] #### [facility] (DEFAULT) [address] [place] [address] 65905 eGFR AA >60 Invalid Interpretation Code [facility] Comment on above: Result Comment: Cigar Bander juanito Kidney disease could be indicated at eGFRs of less than 60 ml/min/1.73m2. Kidney Failure is indicated at less than 15 ml/min/1.73m2 Performed By: #### 7 898493, 56167069, 1181152, [id number] #### [facility] (DEFAULT) [address] [place] [address] 53127 Albumin [Mass/Vol] 1.6 g/dL Low 3.5-5.0 [facility] Comment on above: Performed By: #### 7 212696, 10327676, 9125640, [id number] #### [facility] (DEFAULT) [address] [place] [address] 38126 Albumin/Globulin [Mass ratio] 0.7 {ratio} Low 1.4-2.6 [facility] Comment on above: Performed By: #### 7 965684, 31181509, 4588906, [id number] #### [facility] (DEFAULT) [address] [place] [address] 43569 Alk Phos 52 IU/L Normal 32-91 [facility] Comment on above: Performed By: #### 7 982881, 34297356, 8690903, [id number] #### [facility] (DEFAULT) [address] [place] [address] 11065 ALT [Catalytic activity/Vol] 23.0 U/L Normal 14.0-54.0 [facility] Comment on above: Performed By: #### 7 031024, 14568420, 1510565, 3156841785 #### [facility] (DEFAULT) [address] [place] [address] 09303 Anion gap [Moles/Vol] 14.0 mmol/L Normal 5.0-19.0 [facility] Comment on above: Performed By: #### 7 101975, 46709825, 1273047, 7055154484 #### [facility] (DEFAULT) [address] [place] [address] 43369 AST [Catalytic activity/Vol] 27 U/L Normal 15-41 [facility] Comment on above: Performed By: #### 7 373078, 04118917, 8795259, 5786510012 #### [facility] (DEFAULT) [address] [place] [address] 83333 Bili Total 0.4 mg/dL Normal 0.3-1.2 [facility] Comment on above: Performed By: #### 7 226392, 89308171, 3289356, 2589131067 #### [facility] (DEFAULT) [address] [place] [address] 65627 Calcium [Mass/Vol] 6.1 mg/dL Low 8.9-10.3 [facility] Comment on above: Performed By: #### 7 406271, 91485791, 9754232, [id number] #### [facility] (DEFAULT) [address] [place] [address] 80268 Chloride [Moles/Vol] 108 mmol/L Normal 101-111 [facility] Comment on above: Performed By: #### 7 837042, 25974165, 6440104, [id number] #### [facility] (DEFAULT) [address] [place] [address] 35286 CO2 [Moles/Vol] 21 mmol/L Normal 21-32 [facility] Comment on above: Performed By: #### 7 346261, 42948826, 2109656, 3228377725 #### [facility] (DEFAULT) [address] [place] [address] 26368 Creatinine [Mass/Vol] 0.64 mg/dL Normal 0.60-1.30 [facility] Comment on above: Performed By: #### 7 478393, 64935201, 1488490, [id number] #### [facility] (DEFAULT) [address] [place] [address] 90816 Globulin (S) [Mass/Vol] 2.4 g/dL Normal 1.5-4.3 [facility] Comment on above: Performed By: #### 7 093263, 31328591, 0886062, [id number] #### [facility] (DEFAULT) [address] [place] [address] 02784 Glucose [Mass/Vol] 118.0 mg/dL Normal 74.0-118.0 [facility] Comment on above: Performed By: #### 7 142224, 46682361, 8392220, [id number] #### [facility] (DEFAULT) [address] [place] [address] 38428 Osmolality 277 mOsm/L Invalid Interpretation Code [facility] Comment on above: Performed By: #### 7 559985, 17924744, 9789456, [id number] #### [facility] (DEFAULT) [address] [place] [address] 02610 Potassium [Moles/Vol] 3.8 mmol/L Normal 3.6-5.1 [facility] Comment on above: Performed By: #### 7 045033, 30767478, 3740664, 7780845509 #### [facility] (DEFAULT) [address] [place] [address] 80688 Protein [Mass/Vol] 4.0 g/dL Low 6.5-8.1 [facility] Comment on above: Performed By: #### 7 731834, 71479337, 8030136, [id number] #### [facility] (DEFAULT) [address] [place] [address] 78781 Sodium [Moles/Vol] 139.0 mmol/L Normal 136.0-144.0 [facility] Comment on above: Performed By: #### 7 457739, 99868064, 7655103, [id number] #### [facility] (DEFAULT) [address] [place] [address] 91220 Urea nitrogen [Mass/Vol] 9 mg/dL Normal 8-26 [facility] Comment on above: Performed By: #### 7 771612, 39701707, 8353009, [id number] #### [facility] (DEFAULT) [address] [place] [address] 60073 Urea nitrogen/Creatinin e [Mass ratio] 14.0 mg/mg Normal 4.6-16.2 [facility] Comment on above: Performed By: #### 7 224573, 44254771, 3728191, 3378635874 #### [facility] (DEFAULT) [address] [place] [address] 41332 ED Note - Physicianon 2021 ED Note - Physician Patient: ASHVIN RENE Age: 65 years Sex: FEMALE : 1955 Associated Diagnoses: General medical; Anemia; Peripheral edema; GI bleed Author: EVERTON NEGRON Basic Information Time seen: Date & time 08/06/2021 17:19:00. History source: Patient, EMS. Arrival mode: Ambulance. History of Present Illness Patient is a 65-year-old female presenting to the emergency department from [facility] for evaluation of low blood pressure possibility of being jaundiced. Patient has a history of congestive heart failure, chronic kidney disease, anemia secondary to chronic kidney disease, hypothyroidism. Patient also currently being treated for C. difficile infection, vancomycin 125 mg twice daily and metronidazole 500 mg 3 times daily, recent Covid infection. Squad indicates they were told to the facility secondary to low blood pressure of 90/45 taken manually and they thought that the patient looked yellow. Squad indicated that this patient is new to the facility over the last week or 2. Patient denies any complaints other than having swelling in bilateral lower extremities states that she has chronic swelling secondary to congestive heart failure and indicates she is not currently on diuretics secondary to her servicing rep stating that she should not take these. She denies having any chest pains, shortness of breath, abdominal pains, nausea vomiting, problems with bowels or bladder states she feels fine. Squad indicated they retook her blood pressure once they arrived, took this manually twice and was 140/80. Review of Systems Constitutional symptoms: No fever, Skin symptoms: No rash, Eye symptoms: Vision unchanged. ENMT symptoms: No sore throat, no nasal congestion. Respiratory symptoms: No shortness of breath, no cough. Cardiovascular symptoms: Peripheral edema, no chest pain, no tachycardia. Gastrointestinal symptoms: No abdominal pain, no nausea, no vomiting. Genitourinary symptoms: No dysuria, Musculoskeletal symptoms: No back pain, no Muscle pain. Neurologic symptoms: No headache, no dizziness. Health Status Allergies: No active allergies have been recorded.. Past Medical/ Family/ Social History Medical history: No active or resolved past medical history items have been selected or recorded.. Social history: Social & Psychosocial Habits No Data Available . Physical Examination CONST: -Appears pale -Acute distress: No -Vitals: reviewed. SKIN: -Gross abnormalities: No EYES: -EOM intact, ARACELI: -Sclera conjunctiva: Unremarkable. ENT: -Pharynx is pink and dry NECK: -Supple ([id number]): non-tender. CARD: -Rate and rhythm: Regular -Edema: Bilateral lower extremity pretibial edema 1+ -Calf pain: No RESP: -Respiratory effort and chest excursion with respirations: Normal -Breath sounds equal bilaterally: Clear -Wheezes: No -Rales: No -Speaking in full sentences BACK: -Signs of pain with movement: No ABD: -Distended: No -Deep palpation: Non-tender EXT: Gross appearance and use of all four extremities: Unremarkable NEURO: -Patient: alert -Gross CN or Focal Neuro deficits: No -Oriented to: person, place and time. -Appearance and judgment: appropriate. Rectal exam: Rectal exam was performed with patient's consent and nurse glass bead maker Jessica in the room the entire time -External rectal exam reveals no abnormalities -Digital rectal exam reveals no masses or polyps within reach of my finger, stool guaiac is positive Medical Decision Making 55-year-old female presenting to the emergency department for evaluation of low blood pressure taken manually at group home facility of 90/45 and possibility of looking mildly jaundiced. I discussed this with the patient recommended blood work she was in agreement. Patient does not appear jaundiced on examination, initial blood pressure on examination is 106/84. Patient Covid swab is positive, patient was positive for Covid on July 19, denies any shortness of breath or cough at this time. Will get chest x-ray for further evaluation. Patient troponin mildly elevated at 17, repeat troponin proximally an hour later slightly increased to 21, EKG shows no significant signs of ischemic type changes as interpreted by me and supervising physician in the emergency department. Patient shows hypomagnesemia with a magnesium of 0.92 and hemoglobin of 7.4. Patient is tachycardic along with mildly hypotensive, low hemoglobin, history of anemia, stool guaiac is positive on examination. Recommended admission for observation of troponin, IV blood transfusion, reevaluation of vital signs, reevaluation of BNP secondary congestive heart failure patient was in agreement. Hospitalist Dr. Castro was also in agreement at this time. According to paperwork from [facility] patient CODE STATUS is full code Results review: Lab results : Lab Flowsheet 08/06/2021 18:55 EST Troponin I High Sensitivity 21 pg/mL CRIT 08/06/2021 1 (more content not included)... [facility] ED Note-Nursingon 08-06-2021 ED Note-Nursing patient did not want to come in. patient is from [place], patient has a history of hypotension and she takes midodrine regularly. she also took zofran. nurse states arms and legs are weeping. nurse states skin is yellow. patient has c diff. nurse at [facility] did a wrist bloodpressure and it was 90/44, ems did a blood pressure and it was 144/90. patient states detention is not giving me my blood pressure meds [facility] Extra Pinkon 08-06-2021 Tube Collected Yes Invalid Interpretation Code [facility] Comment on above: Performed By: #### 7 948233, 65849935, 7067519, [id number] #### [facility] (DEFAULT) [address] [place] [address] Lactic Acidon 08-06-2021 Lactic Acid 16.2 mg/dL Normal 4.5-19.8 [facility] Comment on above: Performed By: #### 7 794234, 49450165, 0453947, [id number] #### [facility] (DEFAULT) [address] [place] [address] Lipaseon 08-06-2021 Lipase Level 20.0 IU/L Low 22.0-51.0 [facility] Comment on above: Performed By: #### 7 394052, 10343568, 1636221, [id number] #### [facility] (DEFAULT) [address] [place] [address] Magnesiumon 08-06-2021 Magnesium [Mass/Vol] 0.92 mg/dL Low 1.80-2.50 [facility] Comment on above: Performed By: #### 7 653663, 20921535, 8787605, [id number] #### [facility] (DEFAULT) [address] [place] [address] Morphologyon 08-06-2021 Aniso 1+ Normal [facility] Comment on above: Order Comment: Order added by Joselito. Performed By: #### 7 695375, 08292733, 9768051, [id number] #### [facility] (DEFAULT) [address] [place] [address] Hypochrom 1+ Normal [facility] Comment on above: Order Comment: Order added by Joselito. Performed By: #### 7 488237, 92922039, 0954111, [id number] #### [facility] (DEFAULT) [address] [place] [address] Microcyte 1+ Normal [facility] Comment on above: Order Comment: Order added by Joselito. Performed By: #### 7 164190, 29819680, 1486695, [id number] #### [facility] (DEFAULT) [address] [place] [address] 97233 RBC morphology finding Nom (Bld) See Morphology Normal [facility] Comment on above: Order Comment: Order added by Joselito. Performed By: #### 7 681454, 51209580, 6161751, [id number] #### [facility] (DEFAULT) [address] [place] [address] RBC.on 08-06-2021 RBC. # of Units: 2 RBC Indication: Symptom Anemia Additional Units?: No Date Needed: 08/06/21 Red Cell Status: RBC Ready Normal [facility] Comment on above: Performed By: #### 1 [id number], 7678050, 06079317, 1714212 #### [facility] (DEFAULT) [address] [place] [address] SARS-CoV-2 (COVID-19) PCRon 08-06-2021 Employed in healthcare? No Invalid Interpretation Code [facility] Comment on above: Performed By: #### 1 [id number], 7067485, 34222529, [id number] #### [facility] (DEFAULT) [address] [place] [address] Group care resident? Yes Invalid Interpretation Code [facility] Comment on above: Performed By: #### 1 [id number], 0927869, 79358939, [id number] #### [facility] (DEFAULT) [address] [place] [address] In ICU? Unknown Invalid Interpretation Code [facility] Comment on above: Performed By: #### 1 [id number], 3758097, 13978069, [id number] #### [facility] (DEFAULT) [address] [place] [address] status? Not Invalid Interpretation Code [facility] Comment on above: Performed By: #### 1 [id number], 2000865, 21450392, 7769526 #### [facility] (DEFAULT) [address] [place] [place] [address] SARS-CoV-2 (COVID-19) RNA JESSICA+probe Ql (Unsp spec) Detected Critically abnormal Not Detected [facility] Comment on above: Result Comment: Resu lts Called To MICAH Prince in ER By RR And Read Back For Confirmation On 08/06/2021 19:54:09 EST. Performed by PCR methodology. Performed By: #### 1 [id number], [id number] #### [facility] (DEFAULT) [address] [place] [address] SARS-CoV-2 (COVID-19) RNA JESSICA+probe Ql (Unsp spec) Unknown Invalid Interpretation Code [facility] Comment on above: Performed By: #### 1 [id number], [id number], [id number] #### [facility] (DEFAULT) [address] [place] [id number] Symptomatic as defined by CDC? No Invalid Interpretation Code [facility] Comment on above: Performed By: #### 1 [id number], [id number] #### [facility] (DEFAULT) [address] [place], [place] [id number] TnI HSon 08-06-2021 Troponin I High Sensitivity 21 pg/mL Critically abnormal <=15 [facility] Comment on above: Result Comment: Elev ated hsTnI 21 result called and read back ok to: GELY OBRIEN ER at: 19:26:45 08/06/2021 by: RRUPPERT Male Baseline Delta 1Hr (Note pg/mL=ng/L) <20pg/mL 50-60% >20pg/mL 20% Female Baseline Delta 1Hr <15pg/mL 50-60% >15pg/mL 20% Other Baseline Delta 1Hr <18ng/mL 50-60% >18ng/mL 20% ([employer] [employer] Guidelines February 2018) Performed By: #### 7 [id number], [id number], [id number] #### [facility] (DEFAULT) [address] [place] [address] Troponin I High Sensitivity 17 pg/mL Critically abnormal <=15 [facility] Comment on above: Result Comment: Elev ated hsTnI 17 result called and read back ok to: JESSICA AL RN IN ER at: 18:28:53 08/06/2021 by: RRUPPERT Male Baseline Delta 1Hr (Note pg/mL=ng/L) <20pg/mL 50-60% >20pg/mL 20% Female Baseline Delta 1Hr <15pg/mL 50-60% >15pg/mL 20% Other Baseline Delta 1Hr <18ng/mL 50-60% >18ng/mL 20% ([employer] [employer] Guidelines February 2018) Performed By: #### 7 [id number], [id number], [id number], [id number] #### [facility] (DEFAULT) [address] [place] [address] XR Chest 1 View Frontalon XR Chest 1 View Frontal EXAM: XR Chest 1 View Frontal HISTORY: COVID COMPARISON: Portable chest 07/11/2021. TECHNIQUE: Portable chest FINDINGS: Poor inspiratory effort. Bilateral infiltrates extending from the kenneth. Patient is status post median sternotomy. The cardiac and mediastinal contours are unremarkable. No discrete pneumothorax or pleural effusion. IMPRESSION: Bilateral hilar infiltrates. Final Dictated by: Yary Gamez DO Dictated DT/TM: 08/06/21 8:48 Signed (Electronic Signature): Yary Gamez DO 08/06/21 8:49 pm Technologist: RANDALL Barton [facility] KNEE RIGHT 3 VWSon KNEE RIGHT 3 [address] [facility] Department of Radiology [address] [place] [address] Patient Name: ASHVIN RENE : 1955 Sex: F Age: Race: White Pt. 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 COMPARISON: None FINDINGS: 3 screws through the distal epicondyles. No acute fracture nor malalignment. Severe vascular calcification. IMPRESSION: No significant change Electronically signed: Tawana Andrade. Transcribed by: [email or web address], User Resident: Electronically Signed by: TAWANA ANDRADE @ 01/01/2021 08:57 PM Normal [facility] Comment on above: Order Comment: Evalu ate Basic Metabolic Panlon 12-08 Anion gap [Moles/Vol] 13 mmol/L Normal 9-18 [facility] Comment on above: Performed By: #### B MP ####[address] [phone] Calcium [Mass/Vol] 7.1 mg/dL Low 8.5-10.2 [facility] Comment on above: Performed By: #### B MP ####[address] [phone] Chloride [Moles/Vol] 107 mmol/L High 97-105 [facility] Comment on above: Performed By: #### B MP ####[address] [phone] CO2 [Moles/Vol] 18 mmol/L Low 22-30 [facility] Comment on above: Performed By: #### B MP ####[place] [address] [place], [place] [phone] Creatinine [Mass/Vol] 0.97 mg/dL High 0.58-0.96 [facility] Comment on above: Performed By: #### B MP ####[place] [address] [place], [place] [phone] eGFR- Amer. >60 Normal [facility] Comment on above: Performed By: #### B MP ####[facility] [place], [place] [phone] eGFR-All Other Races 57 . Normal [facility] Comment on above: Result Comment: eGFR (Estimated GFR) Units of measure: mL/min/1.73 meters squared eGFR is derived from the reexpressed MDRD Study equation using the following parameters: serum creatinine, age, gender and race. The creatinine assay has been calibrated to be traceable to IDMS. An eGFR <60 mL/min/1.73m2 for >3 months is consistent with chronic kidney disease. Refer to KDOQI guidelines for clinical interpretation. In patients with unstable renal function, e.g. those with acute kidney injury, the eGFR may not accurately reflect actual GFR. Performed By: #### B MP ####[address] [phone] Glucose [Mass/Vol] 79 mg/dL Normal 74-99 [facility] Comment on above: Result Comment: The [place] Diabetes Association (ADA) provides guidance for cutoff values for fasting glucose and random glucose. The ADA defines fasting as no caloric intake for at least 8 hours. Fasting plasma glucose results between 100 to 125 mg/dL indicate increased risk for diabetes (prediabetes). Fasting plasma glucose results greater than or equal to 126 mg/dL meet the criteria for diagnosis of diabetes. In the absence of unequivocal hyperglycemia, results should be confirmed by repeat testing. In a patient with classic symptoms of hyperglycemia or hyperglycemic crisis, random plasma glucose results greater than or equal to 200 mg/dL meet the criteria for diagnosis of diabetes. Reference: Standards of Medical Care in Diabetes 2016, [place] Diabetes Association. Diabetes Care. 2016.39(Suppl 1). Performed By: #### B MP ####[facility] [place], [place] [phone] Potassium [Moles/Vol] 4.4 mmol/L Normal 3.7-5.1 [facility] Comment on above: Performed By: #### B MP ####[facility] [place], [place] [phone] Sodium [Moles/Vol] 138 mmol/L Normal 136-144 [facility] Comment on above: Performed By: #### B MP ####[address] [phone] Urea nitrogen [Mass/Vol] 15 mg/dL Normal 7-21 [facility] Comment on above: Performed By: #### B MP ####[address] [phone] Coronavirus 2019on SARS-CoV-2 (COVID-19) RNA JESSICA+probe Ql (Unsp spec) Nasopharyngeal Swab Normal [facility] Comment on above: Performed By: #### C OVID ####[address] [phone] SARS-CoV-2 (COVID-19) RNA JESSICA+probe Ql (Unsp spec) Negative for COVID19 (SARS CoV2) by RT-PCR or equivalent method. Normal Negative for COVID19 (SARS CoV2) by RT-PCR or equivalent method. [facility] Comment on above: Result Comment: This test was developed and its performance characteristics determined by [facility]'s [facility] [place]. This test has been authorized by FDA under an Emergency Use Authorization (EUA). This test has been validated in accordance with the FDA's Guidance Document Policy for Diagnostics Testing in Laboratories Certified to Perform High Complexity Testing under CLIA prior to Emergency use Authorization for Coronavirus Disease 2019 during the Public Health Emergency issued on September 11, 2019. Test performed by [facility], [facility] [place], [address] [place], [place] [address]. Performed By: #### C OVID ####[address] [phone] CBCon 12-07-2020 Absolute nRBC <0.01 Normal <0.01 [facility] Comment on above: Performed By: #### C MP, CBC, PT ####[address] [phone] Erythrocyte distribution width (RBC) [Ratio] 15.1 % High 11.5-15.0 [facility] Comment on above: Performed By: #### C MP, CBC, PT ####[place] [address] [place] [place] [phone] Hematocrit (Bld) [Volume fraction] 33.1 % Low 36.0-46.0 [facility] Comment on above: Performed By: #### C MP, CBC, PT ####[place] [address] [address] [place] [phone] Hemoglobin (Bld) [Mass/Vol] 10.0 g/dL Low 11.5-15.5 [facility] Comment on above: Performed By: #### C MP, CBC, PT ####[place] [address] [place] [phone] MCH 31.9 pG Normal 26.0-34.0 [facility] Comment on above: Performed By: #### C MP, CBC, PT ####[place] [address] [address] [place] [phone] MCHC (RBC) [Mass/Vol] 30.2 g/dL Low 30.5-36.0 [facility] Comment on above: Performed By: #### C MP, CBC, PT ####[place] [address] [address] [place] [phone] MCV (RBC) [Entitic vol] 105.8 fL High 80.0-100.0 [facility] Comment on above: Performed By: #### C MP, CBC, PT ####[place] [address] [address] [place] [phone] Platelet mean volume (Bld) [Entitic vol] 9.6 fL Normal 9.0-12.7 [facility] Comment on above: Performed By: #### C MP, CBC, PT ####[place] [address] [place] [place], [place] [phone] Platelets (Bld) [#/Vol] 256 10*3/uL Normal 150-400 [facility] Comment on above: Performed By: #### C MP, CBC, PT ####[place] [address] [place], [place] [phone] RBC (Bld) [#/Vol] 3.13 10*6/uL Low 3.90-5.20 [facility] Comment on above: Performed By: #### C MP, CBC, PT ####[place] [address] [place], [place] [phone] WBC (Bld) [#/Vol] 5.83 10*3/uL Normal 3.70-11.00 [facility] Comment on above: Performed By: #### C MP, CBC, PT ####[place] [address] [place] [place], [place] [phone] Comp Metabolic Panelon 12-07 Albumin [Mass/Vol] 3.1 g/dL Low 3.9-4.9 [facility] Comment on above: Performed By: #### C MP, CBC, PT ####[place] [address] [place], [place] [phone] ALP [Catalytic activity/Vol] 34 U/L Normal 34-123 [facility] Comment on above: Performed By: #### C MP, CBC, PT ####[place] [address] [place] [place], [place] [phone] ALT [Catalytic activity/Vol] 16 U/L Normal 7-38 [facility] Comment on above: Performed By: #### C MP, CBC, PT ####[place] [address] [place], [place] [phone] Anion gap [Moles/Vol] 8 mmol/L Low 9-18 [facility] Comment on above: Performed By: #### C MP, CBC, PT ####[place] [address] [place] [phone] AST [Catalytic activity/Vol] 16 U/L Normal 13-35 [facility] Comment on above: Performed By: #### C MP, CBC, PT ####[place] [address] [place], [place] [phone] Bilirubin [Mass/Vol] 0.2 mg/dL Normal 0.2-1.3 [facility] Comment on above: Performed By: #### C MP, CBC, PT ####[place] [address] [place] [phone] Calcium [Mass/Vol] 8.4 mg/dL Low 8.5-10.2 [facility] Comment on above: Performed By: #### C MP, CBC, PT ####[place] [address] [place] [phone] Chloride [Moles/Vol] 111 mmol/L High 97-105 [facility] Comment on above: Performed By: #### C MP, CBC, PT ####[place] [address] [place] [phone] CO2 [Moles/Vol] 21 mmol/L Low 22-30 [facility] Comment on above: Performed By: #### C MP, CBC, PT ####[place] [address] [place] [phone] Creatinine [Mass/Vol] 1.16 mg/dL High 0.58-0.96 [facility] Comment on above: Performed By: #### C MP, CBC, PT ####[place] [address] [place] [phone] eGFR- Amer. 56 Normal [facility] Comment on above: Performed By: #### C MP, CBC, PT ####[place] [address] [address], [place] [phone] eGFR-All Other Races 47 . Normal [facility] Comment on above: Result Comment: eGFR (Estimated GFR) Units of measure: mL/min/1.73 meters squared eGFR is derived from the reexpressed MDRD Study equation using the following parameters: serum creatinine, age, gender and race. The creatinine assay has been calibrated to be traceable to IDMS. An eGFR <60 mL/min/1.73m2 for >3 months is consistent with chronic kidney disease. Refer to KDOQI guidelines for clinical interpretation. In patients with unstable renal function, e.g. those with acute kidney injury, the eGFR may not accurately reflect actual GFR. Performed By: #### C MP, CBC, PT ####[facility] [place], [place] [phone] Glucose [Mass/Vol] 96 mg/dL Normal 74-99 [facility] Comment on above: Result Comment: The [place] Diabetes Association (ADA) provides guidance for cutoff values for fasting glucose and random glucose. The ADA defines fasting as no caloric intake for at least 8 hours. Fasting plasma glucose results between 100 to 125 mg/dL indicate increased risk for diabetes (prediabetes). Fasting plasma glucose results greater than or equal to 126 mg/dL meet the criteria for diagnosis of diabetes. In the absence of unequivocal hyperglycemia, results should be confirmed by repeat testing. In a patient with classic symptoms of hyperglycemia or hyperglycemic crisis, random plasma glucose results greater than or equal to 200 mg/dL meet the criteria for diagnosis of diabetes. Reference: Standards of Medical Care in Diabetes 2016, [place] Diabetes Association. Diabetes Care. 2016.39(Suppl 1). Performed By: #### C MP, CBC, PT ####[facility] [address] [place], [place] [phone] Potassium [Moles/Vol] 4.7 mmol/L Normal 3.7-5.1 [facility] Comment on above: Performed By: #### C MP, CBC, PT ####[facility] [place], [place] [phone] Protein [Mass/Vol] 5.0 g/dL Low 6.3-8.0 [facility] Comment on above: Performed By: #### C MP, CBC, PT ####[facility] [place], [place] [phone] Sodium [Moles/Vol] 140 mmol/L Normal 136-144 [facility] Comment on above: Performed By: #### C MP, CBC, PT ####[facility] [place], [place] [phone] Urea nitrogen [Mass/Vol] 22 mg/dL High 7-21 [facility] Comment on above: Performed By: #### C MP, CBC, PT ####[address] [phone] Protimeon 12-07-2020 PT INR 1.2 Normal 0.9-1.3 [facility] Comment on above: Result Comment: Jenny min K Antagonist (VKA) Therapeutic Range: INR 2 to 3 (Target INR of 2.5) Note: For patients treated with VKA drugs, such as warfarin, the [place] [employer]icians 2012 Guideline recommends a therapeutic INR range of 2 to 3 (target INR of 2.5). This recommendation includes high-risk patients with antiphospholipid syndrome with previous arterial or venous thromboembolism, current-generation mechanical or bioprosthetic aortic heart valve replacement. Note: Patients with mechanical aortic valve replacement and additional risk factors for thromboembolic events (atrial fibrillation, previous thromboembolism, LV dysfunction, hypercoagulable conditions) or an older generation mechanical AVR (i.e., ball in-Cage) or any mechanical MVR should have a INR therapeutic range of 2.5 to 3.5 (target INR of 3). Queta CASAS, et al. Chest 2012, 141:7S-47S Haile RA, et al. [facility] 2017, 70: 252-289 Performed By: #### C MP, CBC, PT ####[facility] [place], [place] [phone] PT Sec 12.3 sec Normal 9.7-13.0 [facility] Comment on above: Performed By: #### C MP, CBC, PT ####[place] [address] [place], [place] [phone] Mirella 12-06-2020 SUNILN Telephone (CATDINON) -- ASHVIN RENE ([id number]) 1955 F Date Time Provider Department 12/06/20 ANY JOSEPH During your visit today, we recorded the following information about you: Coty Morales RN 12/06/2020 3:29 PM Signed CARDIOVASCULAR LAB INSTRUCTIONS: Readiness to Learn: Cognitive Ability: Alert and oriented Motivation To Learn: Interested Family/Significant Other Support: Unable to assess - Family not present Instruction Provided To: Patient Patient Learns Best By: Verbal Instruction Factors Affecting Learning: None Physical Limitations Affecting Learning: None Learning Response: Procedure: PTCA/Stent Pre procedure education topics: Arrival time/NPO Status/Medications/Travel INSTRUCTED ON [employer] 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 Instructed By Coty Morales RN. In Department of CARDIOLOGY. Allergies As of Date: 12/06/2020 Noted Allergy Reaction CODEINE 11/24/2020 1 - Mental Status Change 4 - Hives Date Reviewed: 11/24/2020 Reviewed by: Demetra Guadalupe RN - Fully Assessed Reason for Visit: Patient Education [91] Prescriptions as of 12/06/2020 Sig: ACETAMINOPHEN 500 MG TABLET Take 500 mg by mouth every 8 * CALCIUM 500 ORAL Take 1 tablet by mouth once d* CLOPIDOGREL 75 MG TABLET - FO* Take 75 mg by mouth once nina* DEXAMETHASONE 2 MG TABLET Take 2 mg by mouth as directe* DULOXETINE 60 MG CAPSULE,STEFANIA* Take 60 mg by mouth daily at * ERGOCALCIFEROL (VITAMIN D2) 1* Take 50,000 Units by mouth fo* FAMOTIDINE 20 MG TABLET Take 20 mg by mouth twice yaneth* FLUDROCORTISONE 0.1 MG TABLET Take 0.1 mg by mouth every mo* FEXOFENADINE 180 MG TABLET Take 180 mg by mouth once yaneth* ISOSORBIDE MONONITRATE ER 30 * Take 15 mg by mouth once nnia* MAGNESIUM OXIDE 400 MG (241.3* Take 400 mg by mouth twice da* MIDODRINE 5 MG TABLET Take 5 mg by mouth three time* NITROGLYCERIN 0.4 MG SUBLINGU* Dissolve 0.4 mg under the ton* PANTOPRAZOLE 40 MG TABLET,DEL* Take 40 mg by mouth once nina* RANOLAZINE ER 1,000 MG TABLET* Take 1 tablet by mouth twice * ROSUVASTATIN 20 MG TABLET Take 20 mg by mouth once nina* TRAZODONE 150 MG TABLET Take 150 mg by mouth daily at* ONDANSETRON HCL 4 MG TABLET Take 4 mg by mouth every 8 ho* ACARBOSE 100 MG TABLET Take 100 mg by mouth once yaneth* Problem List As Of Date 12/06/2020 Noted Resolved Coronary artery disease of cabazon artery of otilio*11/24/2020 S/P CABG (coronary artery bypass graft) [Z95.1] 11/24/2020 Pure hypercholesterolemia [E78.00] 11/24/2020 Type 2 diabetes mellitus without complication, *11/24/2020 Fatigue [R53.83] 11/24/2020 Encounter Status:Closed by COTY MORALES RN on 12/06/20 [facility] Mirella 11-28-2020 JEFFREY Telephone (DIOMEDES) -- ASHVIN RENE ([id number]) 1955 F Date Time Provider Department 11/28/20 NAY JOSEPH During your visit today, we recorded the following information about you: Maria E Barboza Adm 11/28/2020 8:56 AM Signed Patient called to confirm that she did consider moving forward with PCI, and she would like to do so. She asked if she could have her COVID test and labs done locally, and will call back with a fax number for the orders to be sent. Kd Solitario 11/29/2020 9:46 AM Signed Faxed orders to [phone] Kd Solitario 11/29/2020 12:22 PM Signed Patient called back and gave alternative fax # [phone] She would also like cath to be scheduled on 12/07. 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 (HCC) [I25.118] Order(s):CARDIAC AUTOMATION QTP TESTER ORDER [1859100] Order #: [id number]: 1 INTERMEDIATE RAPID COVID [SQITCOVD] Order #: [id number] FUTURE COMP METABOLIC PANEL [SQCMP] Order #: [id number] FUTURE CBC [SQCBC] Order #: [id number] FUTURE LIPID PANEL BASIC [SQLIPB] Order #: [id number] FUTURE CK CREATINE KINASE [SQCK] Order #: [id number] FUTURE ECG COMPLETE [ECG01] Order #: [id number] FUTURE Prescriptions as of 11/28/2020 Sig: ACETAMINOPHEN 500 MG TABLET Take 500 mg by mouth every 8 * CALCIUM 500 ORAL Take 1 tablet by mouth once d* CLOPIDOGREL 75 MG TABLET - FO* Take 75 mg by mouth once nina* DEXAMETHASONE 2 MG TABLET Take 2 mg by mouth as directe* DULOXETINE 60 MG CAPSULE,STEFANIA* Take 60 mg by mouth daily at * ERGOCALCIFEROL (VITAMIN D2) 1* Take 50,000 Units by mouth fo* FAMOTIDINE 20 MG TABLET Take 20 mg by mouth twice yaneth* FLUDROCORTISONE 0.1 MG TABLET Take 0.1 mg by mouth every mo* FEXOFENADINE 180 MG TABLET Take 180 mg by mouth once yaneth* ISOSORBIDE MONONITRATE ER 30 * Take 15 mg by mouth once nina* MAGNESIUM OXIDE 400 MG (241.3* Take 400 mg by mouth twice da* MIDODRINE 5 MG TABLET Take 5 mg by mouth three time* NITROGLYCERIN 0.4 MG SUBLINGU* Dissolve 0.4 mg under the ton* PANTOPRAZOLE 40 MG TABLET,DEL* Take 40 mg by mouth once nina* RANOLAZINE ER 1,000 MG TABLET* Take 1 tablet by mouth twice * ROSUVASTATIN 20 MG TABLET Take 20 mg by mouth once nina* TRAZODONE 150 MG TABLET Take 150 mg by mouth daily at* ONDANSETRON HCL 4 MG TABLET Take 4 mg by mouth every 8 ho* ACARBOSE 100 MG TABLET Take 100 mg by mouth once yaneth* Problem List As Of Date 11/28/2020 Noted Resolved Coronary artery disease of cabazon artery of otilio*11/24/2020 S/P CABG (coronary artery bypass graft) [Z95.1] 11/24/2020 Pure hypercholesterolemia [E78.00] 11/24/2020 Type 2 diabetes mellitus without complication, *11/24/2020 Fatigue [R53.83] 11/24/2020 Encounter Status:Closed by NAY JOSEPH on 11/29/20 [facility] CNOVon 11-24-2020 CNOV Office Visit (CATHMN ) -- ASHVIN RENE ([id number]) 1955 F Date Time Provider Department 11/24/20 9:30 AM NAY JOSEPH During your visit today, we recorded the following information about you: Pulse Respiration Blood pressure Weight 91/minute 20/minute 108/63 64.3 kg Height 1.6 m A. Nay Joseph MD 11/29/2020 7:54 AM Signed [facility] [place] [facility] Department of Cardiovascular Medicine SECTION OF INTERVENTIONAL CARDIOLOGY OUTPATIENT VISIT DATE November 23, 2020 OUTPATIENT VISIT TYPE NEW PRIMARY CARE PHYSICIAN: Tushar Solano Jr, DO ([facility]) [address] [address] REFERRING PHYSICIAN: Waqas Mabry MD [address] [facility] [id number] CHIEF COMPLAINT: No chief complaint on file. HISTORY OF PRESENT ILLNESS: Ms. Rene is a 65 year old female who presents today for second opinion regarding severe CAD. History detailed below. In brief: CRFs: HTN, lipids, FHx 2013 - PCI at OSH - no information (liklely mid LAD based upon subsequent angiogram) 2014 - CABG x 2 at OSH - ROMERO to LAD, SVG to RCA 2016 - two heart attacks and a stroke per patient, leading to catheterization and loop recorder placement. 2016 - catheterization at OSH reportedly showing atretic ROMERO (ROMERO is NOT atretic by my review of subsequent angiogram) 10/13/2020 - Stress nuclear at OSH: Ischemia in apical, anterior/anteriolateral, and inferoseptal segments. LVEF 72%, TID 1.58 10/25/2020 - Cardiac catheterization at OSH (by my review of images): LM - very short, nearly two separate coronary ostia LAD - heavily calcified proximal 90% subtotal occlusion, then 100% mid occlusion LCX - heavy calcification throughout. Large PL1 with ostial ~50% stenosis. Large PL2 with very heavily calcified tandem 95% eccentric stenoses, followed by moderate caliber tortuous distal segment. RCA - mid diffuse 100% occlusion ROMERO to LAD - ROMERO is widely patent. LAD is 100% occluded immediately distal to graft insertion, with bridging collaterals to small caliber, severely diffusely diseased distal and apical LAD. SVG to distal RCA - widely patent. Distal RCA beyond the graft has ~60-70% focal stenosis, perfusing small to moderate sized diffusely diseased distal vessel. LV - focal inferoapical severe hypokinesia, overall normal Over last 6 months, has had current symptoms: - tired all the time, weak, nausea/emesis, dizzy, coughing - chest discomfort - occurs unpredictably a few times per week, usually at rest. Resolves spontaneously over ~ 3 minutes. - shortness of breath with exertion - on activities such as walking to her car, running vacuum, relieved with rest in ~4-5 minutes. This has been present for years, but is worse recently and seems to limit her activity. When questioned, she feels that her most limiting symptoms are her shortness of breath. Since starting ranolazine 3 months ago, seems to have had some improvement. She has longstanding labile BP, dizziness, syncope for last 3-5 years - has been on midodrine during that time. NURSING INTAKE: PMHX CAD CABG X 2 2015 L-LAD SVG-dRCA HTN HLP Loop recorder 05/24/16 CVA-2016 Family history of CAD Current symptoms: progressive fatigue, decreasing energy, weakness, near-syncope, ALLAN, palpitations, cough, PND, nANDv. 2 episodes of chest tightness w/ 2nd one last evening heavines , resolved spontaneously Symptomatic hypotension-reports bp can be as low as 70's/50's 2013 PCI to unknown vessel (heartburn resolved after PCI) 2015 CABG x 2 L-LAD SVG-dRCA (heartburn, abnormal stress-symptoms resolved after CABG) 2016 CVA and (?) [place] 05/24/16 Echo ? Normal left ventricular end-diastolic dimension. Normal left ventricular ejection fraction ? Left atrium is mildly dilated. The left atrial appendage is visualized. No thrombus present in the left atrial appendage ? An agitated saline bubble study was performed and demonstrated the presence of a right to left shunt ? Bicuspid aortic valve is present with raphe noted. Left and right coronary cusp fusion. No aortic stenosis. Moderate aortic valve regurgitation ? The mitral valve leaflets appear to be thickened. No mitral valve stenosis. Trace mitral regurgitation 06/18/16 Coronary angiogram ? Multivessel coronary artery disease ? One of 2 bypass grafts are patent. With a atretic ROMERO to the LAD that fills a very distal and small LAD system and is not amenable to percutaneous coronary intervention ? Low normal LV systolic function with?an EF in the 50 percent range. With severe apical akinesis. 10/12/20 Lexiscan cardiolite stress test 1. Rest EKG: ?Sinus with prior septal infarction. ?Lexiscan EKG: ? Unchanged. ?No clinical or EKG markers for ischemia with Lexiscan injection (more content not included)... Normal [facility] CNCOon 11-22-2020 CNCO Letter Text Normal [facility] CNPNon 11-22-2020 CNPN Telephone (CATHMN) -- ASHVIN RENE ([id number]) 1955 F Date Time Provider Department 11/22/20 NAY JOSEPH During your visit today, we recorded the following information about you: Kd Solitario 11/22/2020 3:54 PM Signed Urgent records request faxed to [phone] Allergies As of Date: 11/22/2020 (Not on File) Date Reviewed: Never Reviewed Reason for Visit: Request Outside Medical Records [2228] Problem List As Of Date: 11/22/2020 (None) Encounter Status:Closed by KD SOLITARIO on 11/22/20 [facility]-09[facility]2020 CNPN Telephone (REFPHY) -- ASHVIN RENE ([id number]) 1955 F Date Time Provider Department 11/09/20 NO ONE (HISTORICAL) REFPHY During your visit today, we recorded the following information about you: Ashvin Quezada [facility] 11/09/2020 10:11 AM Signed Patient: Ashvin Rene Date of : 1955 Patient phone number: [phone] Referring Provider for the encounter: Dr Waqas Mabry Requesting Provider: Cardiology Reason for requesting visit (RFV/signs and symptoms/diagnosis): 2nd Opinion - Severe CAD Person calling: caregiver: ERIC Return call to: self Medical Records/Insurance Card scanned into Epic: Yes Comments: N/A Allergies As of Date: 11/09/2020 (Not on File) Date Reviewed: Never Reviewed Reason for Visit: External Referrals/resources [079] Problem List As Of Date: 11/09/2020 (None) Encounter Status:Closed by ASHVIN DIAZ on 11/09/20 [facility] XA-CARDIAC CATHETERIZATION I MPORTon 10-25-2020 XA-CARDIAC CATHETERIZATION IMPORT Images were obtained outside of [facility] [id number] Normal [facility] Vital Signs Date Time Vital Sign Value Performing Clinician Facility 08-21-2023 14:09-0500 Body temperature 97.9 [degF] Dwain Kubitz DPM Work Phone: [facility] 08-21-2023 14:09-0500 Diastolic blood pressure 62 mm[Hg] Dwain Kubitz DPM Work Phone: [facility] 08-21-2023 14:09-0500 Heart rate 84 /min Dwain Kubitz DPM Work Phone: [facility] 08-21-2023 14:09-0500 Systolic blood pressure 145 mm[Hg] Dwain Kubitz DPM Work Phone: [facility] 08-06-2023 16:00-0500 Diastolic blood pressure 65 mm[Hg] [facility] 08-06-2023 16:00-0500 Heart rate 80 /min [facility] 08-06-2023 16:00-0500 Respiratory rate 16 /min [facility] 08-06-2023 16:00-0500 SaO2% (BldA) [Mass fraction] 100 % [facility] 08-06-2023 16:00-0500 Systolic blood pressure 107 mm[Hg] [facility] 08-06-2023 12:48-0500 Inhaled oxygen flow rate 3 L/min [facility] 08-06-2023 11:08-0500 Body height 157.48 cm [facility] 08-06-2023 11:08-0500 Body weight 63.04 kg [facility] 08-04-2023 10:45-0500 Body height 160.66 cm Jolie De Luna Other [facility] Other 08-04-2023 10:45-0500 Body mass index (BMI) [Ratio] 24.43 kg/m2 Jolie De Luna Other [facility] Other 08-04-2023 10:45-0500 Body temperature 97.8 [degF] Jolie De Luna Other [facility] Other 08-04-2023 10:45-0500 Body weight 63.05 kg Jolie De Luna Other [facility] Other 08-04-2023 10:45-0500 Diastolic blood pressure 64 mm[Hg] Jolie De Luna Other [facility] Other 08-04-2023 10:45-0500 SaO2% (BldA) [Mass fraction] 98 % Joile De Luna Other [facility] Other 08-04-2023 10:45-0500 Systolic blood pressure 110 mm[Hg] Jolie De Luna Other [facility] Other 06-25-2023 11:16-0500 Body height 157.5 cm Norman Braga MD Work Phone: [facility] 06-25-2023 11:16-0500 Body mass index (BMI) [Ratio] 25.79 kg/m2 Norman Braga MD Work Phone: [facility] 06-25-2023 11:16-0500 Body temperature 98.2 [degF] Norman Braga MD Work Phone: [facility] 06-25-2023 11:16-0500 Body weight 63.96 kg Norman Braga MD Work Phone: [facility] 05-20-2022 11:05-0500 Body height 160.66 cm Virginia Marti Other [facility] Other 05-20-2022 11:05-0500 Body mass index (BMI) [Ratio] 21.09 kg/m2 Virginia Kaia Other [facility] Other 05-20-2022 11:05-0500 Body temperature 97.3 [degF] Virginia Marti Other [facility] Other 05-20-2022 11:05-0500 Body weight 54.43 kg Virginia Ramachandranmond Other [facility] Other 05-20-2022 11:05-0500 Diastolic blood pressure 66 mm[Hg] Virginia Ramachandranmond Other [facility] Other 05-20-2022 11:05-0500 Respiratory rate 18 /min Virginia Marti Other [facility] Other 05-20-2022 11:05-0500 SaO2% (BldA) [Mass fraction] 100 % Virginia Marti Other [facility] Other 05-20-2022 11:05-0500 Systolic blood pressure 112 mm[Hg] Virginia Kaia Other [facility] Other 04-12-2021 15:45-0400 Body height 160.66 cm Antonio Kim Other [facility] Other 04-12-2021 15:45-0400 Body mass index (BMI) [Ratio] 25.3 kg/m2 Antonio Kim Other [facility] Other 04-12-2021 15:45-0400 Body weight 65.32 kg Antonio Kim Other [facility] Other 09-09-2019 10:00-0500 BP Diastolic 80 mm[Hg] [facility] 09-09-2019 10:00-0500 BP Systolic 138 mm[Hg] [facility] 09-09-2019 10:00-0500 Pulse (Heart Rate) 80 /min [facility] 09-09-2019 10:00-0500 Pulse Oximetry 96 % [facility] 09-09-2019 10:00-0500 Respiratory Rate 16 /min [facility] 09-09-2019 08:20-0500 BMI (Body Mass Index) 25 kg/m2 [facility] 09-09-2019 08:20-0500 Body weight 63.95 kg [facility] 09-09-2019 08:20-0500 Height 160.02 cm [facility] 09-09-2019 07:10-0500 Body Temperature 97.9 [degF] [facility] 08-12-2019 09:55-0500 BP Diastolic 73 mm[Hg] [facility] 08-12-2019 09:55-0500 BP Systolic 132 mm[Hg] [facility] 08-12-2019 09:55-0500 Pulse (Heart Rate) 86 /min [facility] 08-12-2019 09:55-0500 Pulse Oximetry 97 % [facility] 08-12-2019 09:55-0500 Respiratory Rate 16 /min [facility] 08-12-2019 08:47-0500 BMI (Body Mass Index) 25.2 kg/m2 [facility] 08-12-2019 08:47-0500 Body weight 63.5 kg [facility] 08-12-2019 08:47-0500 Height 158.75 cm [facility] 08-12-2019 07:27-0500 Body Temperature 98.8 [degF] [facility] Encounters Encounter Date Encounter Type Care Provider Facility Start: 10-06-2023 End: 10-07-2023 Orders Only Cheikh Rodrigez CMA [facility] Comment on above: 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 Comment on above: Santyl Start: 08-21-2023 End: 08-21-2023 ambulatory DWAIN MILLS Not Available Start: 08-21-2023 Bamboo flowsheet Dwain moore DPM Work Phone: [facility] Start: 08-21-2023 Bamboo flowsheet Dwain moore DPM Work Phone: [facility] Start: 08-21-2023 End: 08-21-2023 Office outpatient visit 15 minutes Dwain Mills DPM Work Phone: [facility] Comment on above: 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); Gangrene (CMS/HCC); Pain in toe of right foot; Arteriosclerosis of arteries of extremities (CMS/HCC) Start: 08-07-2023 End: 08-07-2023 ambulatory DWAIN MILLS Not Available Start: 08-06-2023 End: 08-06-2023 ambulatory Tushar Sloano Facility:[facility] Start: 08-06-2023 Non-patient / Non-visit [facility] Work Phone: Start: 08-04-2023 End: 08-04-2023 ambulatory Jolie De Luna Other [facility] Other Start: 08-04-2023 FQ visit new patient Jolie harkins [facility] Start: 07-24-2023 End: 01-11-2024 ambulatory DWAIN MILLS Not Available Start: 06-25-2023 ambulatory NORMAN BRAGA [facility] Start: 06-25-2023 End: 06-25-2023 Office outpatient new 45 minutes Norman Braga MD Work Phone: [facility] Comment on above: Left knee pain, unsp ecified chronicity (Primary Dx) Start: 06-25-2023 End: 06-25-2023 Subsequent hospital visit by physician Norman Braga MD Work Phone: [facility] Start: 10-15-2022 End: 10-16-[address] TUSHAR SOLANO Facility:[facility] Start: 07-16-2022 End: 07-17-[address] TUSHAR SOLANO Facility:[facility] Start: 06-14-2022 End: 06-15-[address] TUSHAR SOLANO Facility:[facility] Start: 05-20-2022 Office outpatient visit 15 minutes Virginia Marti [facility] Start: 05-20-2022 End: 05-20-2022 ambulatory JR Tushar Solano Work Phone: [facility] Work Phone: Start: 05-20-2022 End: 05-20-2022 Patient encounter procedure JR Tushar Solano Work Phone: [facility] Start: 06-11-2021 End: 06-11-2021 ambulatory Antonio Kim Other [facility] Other Start: 06-11-2021 Telephone encounter Antonio frederick [facility] Start: 04-12-2021 Office outpatient ne w 45 minutes Antonio Kim [facility] Start: 11-09-2020 End: 11-09-2020 Telephone encounter No One (Historical) Referring Physician Comment on above: External Referrals/r esources Start: 09-09-2019 End: 09-09-2019 Admission to day surgery [facility] Start: 08-12-2019 End: 08-12-2019 Admission to day surgery [facility] Procedures Date Procedure Procedure Detail Performing Clinician Start: 05-20-2022 Plain X-ray of right hand JR Tushar ricketts Work Phone: Start: 10-19-2020 History of coronary artery bypass grafting History of coronary artery bypass surgery Dwain Mills DPM Work Phone: Start: 09-09-2019 Phacoemulsification of cataract with intraocular lens implantation Tushar Solano Start: 08-12-2019 Phacoemulsification of cataract with intraocular lens implantation Tushar Solano Plan of Treatment Date Care Activity Detail Author Start: 05-20-2032 DTaP,Tdap and Td Vac cines (2 - Td or Tdap) DTaP,Tdap and Td Vaccines (2 - Td or Tdap) [facility] Start: 05-20-2032 Tetanus vaccination TETANUS [facility] Start: 05-19-2024 Adult BMI Screening Adult BMI Screen ing [facility] Start: 05-19-2024 Tobacco Screening Tobacco Screening [facility] Start: 11-13-2023 End: 11-13-2023 Patient encounter procedure 11/13/2023 2:30 PM EDT Office Visit [facility] [address] [place] [address] Bernice Davis MD [address] [place], [place] [id number] [facility] Start: 10-16-2023 End: 10-16-2023 Patient encounter procedure 10/16/2023 1:30 PM EDT Office Visit [facility] [address] [facility] [address] [place] [phone] Genet Small, [address] [facility] [address] [place] [address] [facility] Start: 09-09-2023 End: 09-09-2023 Patient encounter procedure 09/09/2023 10:15 AM EST Office Visit [facility] [address] [place] [address] Kubitz, Dwain R, DPM [address] [place] [address] [facility] Start: 08-21-2023 End: 08-21-2023 Patient encounter procedure 08/21/2023 2:00 PM EST Office Visit [facility] [address] [place] [phone] Dwain Mills, DPM [address] [place] [address] Arrived [facility] Comment on above: Arrived Start: 08-06-2023 [facility] Start: 03-14-2023 Influenza vaccination A [facility] Start: 2018 Fall Risk Screening Fall Risk Screen ing [facility] Start: 2018 Pneumococcal vaccination PNEUM OCOCCAL VACCINE SERIES (2 - PCV) [facility] Start: 11-20-2003 Administration of varicella zoster vaccine Zoster (Shingles) Vaccine (1 of 2) [facility] Start: 11-20-2003 Zoster vaccine hzv l pool for subcutaneous use ZOSTER (SHINGLES) VACCINE (1 of 2) [facility] Start: 1998 Screening for malign ant neoplasm of colon COLORECTAL CANCER SCREENING DISCUSSION [facility] Start: 1993 Lipid panel LIPID SCREENING [facility] Start: 1993 Screening for malign ant neoplasm of breast MAMMOGRAM SCREENING DISCUSSION [facility] Start: 1974 Screening for malign ant neoplasm of cervix CERVICAL CANCER SCREENING DISCUSSION [facility] Start: 1972 Third diphtheria, te tanus and acellular pertussis (DTaP) vaccination TDAP (ADULT) [facility] Start: 11-20-1971 Adult BMI Follow Up Plan Adult BMI Follow Up Plan [facility] Start: 1965 Depression Screening Depression Scre ening [facility] Start: 05-22-1954 COVID-19 VACCINE (#1) COVID-19 VACCI NE (#1) [facility] Start: 1955 Hepatitis C screening HEPATITI S C VIRUS SCREENING [facility] Start: 1955 Medicare Annual Well ness Visit Medicare Annual Wellness Visit [facility] Start: 1955 Screening for osteoporosis DEXA SCAN DISCUSSION [facility] Start: 1955 Thyroid stimulating hormone measurement TSH [facility] Patient Education Atherectomy - Angioplasty of a Noncoronary Vessel Arteriogram (DC) [facility] Work Phone: Patient referral [facility] Radiography for bone length studies XR BONE LENGTH STUDY Imaging Routine Left knee pain, unspecified chronicity 06/25/2023 10:28 AM [facility] Work Phone: XR Knee - left 4 Views XR KNEE L EFT 4+ VIEWS Imaging Routine Left knee pain, unspecified chronicity 06/25/2023 10:28 AM [facility] Immunizations Immunization Date Immunization Notes Care Provider Fa cility 05-20-2022 tetanus and diphther ia toxoids, adsorbed, preservative free, for adult use (5 Lf of tetanus toxoid and 2 Lf of diphtheria toxoid) Virginia Marti Other [facility] 05-21-2018 Seasonal trivalent influenza vaccine, adjuvanted, preservative free Jaclin Rain [facility] 05-21-2018 influenza virus vaccine, unspecified formulation Norman Braga MD Work Phone: [facility] 09-12-2014 pneumococcal polysaccharide vaccine, 23 valent Jaclin Rain [facility] NEGATED: Highlighted row has not occurred!02-16-2023 pneumococcal conjugate vaccine, 13 valent Jaclin Rain [facility] Payers Date Payer Category Payer Self-pay [id number] 2022 Medicare [id number] 2020 Unknown [employer] [id number] 2020-Present Indemnity [id number] 2018 Medicare MEDICARE MEDICAR E A AND B [id number] 2018-Present [place] Medicare [id number] 1959 Medicare [id number] 1959 Unknown [id number] 1959 Unknown [id number] 1955 Unknown [id number] 1953 Unknown [id number] 1953 Unknown [id number] 1955 Unknown [id number] 1955 Unknown [id number] 1955 Unknown [id number] 9 1955 Unknown [id number] 9 1955 Unknown [id number] 9 1955 Unknown [id number] 6 Unknown [id number] Unknown [id number] Unknown [id number] Social History Date Type Detail Facility Start: 06-18-2016 End: 09-09-2019 Tobacco smoking status NHIS Never smoked tobacco (finding) [facility] Start: 1955 Sex Assigned At Female F [facility] Start: 1955 Sex Assigned At Not on file 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 (finding) [email or web address] Medical Equipment Procedure Code Equipment Code Equipment Origin al Text Equipment Identifier Dates Phacoemulsification of cataract with intraocular lens implantation ()[id number] FDA Start: 08-12-2019 Phacoemulsification of cataract with intraocular lens implantation Posterior-chamber intraocular lens, pseudophakic ()[id number] FDA Start: 09-09-2019 Loop Recorder [facility] - [id number] - [id number] Start: 05-24-2016 System Cor Stnt 3.0mm X 12mm 145cm [facility] [employer] - [id number] FDA Start: 02-15-2023 Goals Date Patient Goal Desired Activity /State Clinical Notes 11-09-2020 to 08-22-2023 Telephone Encounter - RT. Gallo Naranjo - 08/22/2023 12:43 PM ESTTelephone Encounter - RT. Gallo Naranjo - 08/22/2023 12:43 PM George Mills, DPM - 08/21/2023 2:00 PM EST Note Date & Type Note Facility 08-22-2023 Telephone encount er Note Patient left message on nurse line yesterday that the prescription we sent it was going to be $285.00. I called patient back to verify that this was the Santyl prescription as I had just sent the RX when she called. Patient called back today and left message that she will be obtaining the Santyl as someone is helping her with the cost. Said she did not need a call back and did not need a different prescription sent in. [facility] 08-22-2023 Miscellaneous Notes Formattin g of this note might be different from the original. Patient left message on nurse line yesterday that the prescription we sent it was going to be $285.00. I called patient back to verify that this was the Santyl prescription as I had just sent the RX when she called. Patient called back today and left message that she will be obtaining the Santyl as someone is helping her with the cost. Said she did not need a call back and did not need a different prescription sent in. documented in this encounter [facility] 08-21-2023 History of Presen t illness Narrative Reason for Visit: Established patient: Recheck RT hallux painful dry gangrenous ulcer HPI Established patient presents for recheck of painful right hallux ulcer. Patient had vascular intervention on 08-05-2023. Patient is applying Betadine to wound once daily followed by a bandaid. She stopped use of the Nifed PHN gel. Patient has occasional mild/tolerable pain to the dry gangrenous ulcerated area. Patient is currently taking Doxycycline due to a UTI. Review of Systems General: Chills denies. Fatigue denies. Fever denies. Night sweats denies. Endocrine: Diabetes denies. Hyperpigmentation denies. Weakness denies. Cardiovascular: Chest pain denies. Shortness of breath denies. Gastrointestinal: Constipation denies. Diarrhea denies. Nausea denies. Vomiting denies. Hematology: Anemia denies. Bleeding problems denies. Easy bruising denies. Musculoskeletal: Bone/joint symptoms admits. Leg cramps denies. Peripheral Vascular: Edema denies. Raynaud's denies. Rest pain denies. Varicose veins denies. Skin: Nail changes denies. Rash denies. Skin lesion(s) denies. Ulceration admits. Neurologic: Dizziness denies. Gait abnormality denies. Headache denies. Tingling/Numbness denies. Examination General Examination: GENERAL EXAMINATION: awake, aware of surroundings, in no acute distress. Vascular: DORSALIS PEDIS PULSE: barely palpable bilateral. POSTERIOR TIBIAL PULSE: barely palpable bilateral. TEMPERATURE GRADIENT: warm to cool. EDEMA: none. CAPILLARY FILLING TIME(sec): less than 2 seconds bilateral. Bilateral FRANCIS/PVR study performed on 05-29-2023 at [facility] showed: FRANCIS is falsely elevated suggesting medial calcinosis: TBI is consistent with mild to moderate arterial disease. Waveform data however are consisent with no significant arterial obstruction at rest. 08-06-2023: Recent RT lower extremity angioplasty by Dr. Lorenzo. Ankle / Foot: MUSCLE STRENGTH: 5/5 to the major muscle groups right, weakness left peroneal tendons. Neurologic: NEUROLOGIC: numbness bilateral plantar foot: left > right. History of falls. Dermatologic: SKIN FINDINGS: Skin is thin, shiny, atrophic and dry with absent pedal hair to the bilateral lower extremity. HYPERKERATOSIS: Pre-ulcerative callus bilateral plantar foot sub second MPJ region: right foot x 2 and left foot x 5.. There are no preulcerative lesions to the distal tips of mildly contracted hammertoes bilateral foot. NAIL PATHOLOGY: Intact toenails to 1-5 bilaterally. Ulcer: Location: RT distal hallux Thickness: Full Stage: Ischemic ulcer of right toe with necrosis of muscle Previous measurement: 0.9 cm x 0.9 cm, Date of Exam 08-07-2023 Pre-debridement measurement: closed with dry gangrene measuring 0.9 cm x 0.8 cm Post-debridement measurement: no debridement performed Drainage: none Tracking: none Malodor: none Base: dry gangrene Wound Edges: intact Surrounding Skin: normal Surrounding SOI: normal Orthopedic: JOINT RANGE OF MOTION: normal. ORTHOPEDIC: History of bilateral femur fracture with ORIF in 2019, History of left hip fracture with ORIF in 2012. Osteoporosis, hammertoes 2-5 bilateral are flexible/reducible. SHOE GEAR EVALUATION: [employer] shoes. X-ray: Foot: 04-08-2023: LEFT FOOT x-rays, weightbearing AP/MO/LAT views, obtained today shows: AP / medial oblique x-ray shows mild splaying of toes 1, 2, gross osteopenia, calcific blood vessels noted 1st intermetatarsal space across the 2nd metatarsal as well as dorsal 3rd metatarsal and 3rd intermetatarsal spaces. Lateral view shows large plantar calcaneal spur, significant amount of calcific blood vessels posterior lower leg and ankle and hindfoot as well as heel and anterior lower leg ankle and midfoot, significant 1st metatarsal elevation, hallux distal phalanx is dorsiflexed at the IPJ. Otherwise gross osteopenia noted lower extremity without signs of fracture, dislocation, periosteal reaction, gas, foreign body, infection, arthritis, or tumor. Ankle: 04-08-2023: LEFT ANKLE x-rays, weightbearing AP/MORTISE views, obtained today shows: Gross osteopenia without sign of fracture, dislocation, periosteal reaction, gas, foreign body, infection, arthritis, or tumor. Medial distal gutter of the ankle show spur formation. There is no obvious sign of talar dome lesion either. Assessments 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 - L97.513 - RT distal hallux: Stable Gangrene - I96 - RT distal hallux : Stable Arteriosclerosis of extremities - I70.209 Pre-ulcerative callus - L84 - Bilateral plantar foot sub 2nd MPJ region Right foot pain - M79.671 : Completely resolved status post recent vascular intervention Left foot pain - M79.672 Weakness LT peroneal tendons - R29.898 Numbness bilateral foot - R20.2 Fall risk - Z91.81 Hammertoe right - M20.41 Hammertoe left - M20.42 Osteoporosis -M81.0 History of diabetes - Z86.39 History of left hip fracture - Z87.81 History of bilateral femur fracture - Z87.81 Plan Ulcer with gangrene 1. Patient seen today for complaint of painful ulcer right distal hallux. Dry gangrene is observed to ulcer. Pain has significantly improved status post vascular intervention performed on 08-06-2023. 2. No debridement was performed in office today. 3. Patient was advised to cleanse ulcer, apply Santyl to ulcer bed and Nifed PHN gel to base of right hallux followed by a clean dry sterile dressing once daily. 4. Patient advised not to submerge right foot underwater and sponge bathe right foot in all unopen areas until ulcer is completely healed. 5. Patient should continue to wear surgical shoe with diabetic replacement kit to wear on right foot, for offloading of right hallux ulcer, during weightbearing activity. 6. We will consider debridement as necessary at this time patient should maintain her aggressive conservative treatment at this time no further discussion about amputation partial or complete a hallux should be pursued. 7. Reappoint in two weeks. Pre-ulcerative callus 1. Patient should wash and dry feet twice a day and re-start application of Urea 36%/Clobetasol 0.005% cream to bilateral foot calluses twice a day. 2. Patient was advised to self-debride calluses at home with emery board or pumice stone to keep calluses thin. 3. She also needs softer insoles so we can reduce friction and pressure which could lead to ulcerations. She does not qualify for diabetic shoes paid through insurance as she does not have diabetes and other comorbidities. Patient was advised of such and voiced understanding. 4. Reappoint as needed. Entered by Alida Post acting as scribe for Dr. Dwain Mills DPM,MS, FACFAS. Signature Alida Post RT(R) Date 08-21-2023. Time 3:09 PM. The documentation recorded by the scribe accurately reflects the service(s) I personally performed and the decisions I made. documented in this encounter [facility] 08-04-2023 Evaluation note Encounter Date Diagnosis Assessment Notes Jul, PAD (peripheral artery disease) (ICD-10 - I73.9) We reviewed her noninvasive arterial studies obtained at outside facility and [facility] in [place] which indicate mild to moderate arterial disease bilaterally. By physical examination she has nonpalpable right pedal pulse and gangrenous ulcer to the distal tip of the right great toe. She is at risk for amputation of the right great toe. She has been following with podiatry with good wound care and the wound has been ongoing since April with no improvement overall. Recommend proceeding with diagnostic and possibly therapeutic angiogram/angiop lasty to evaluate and improve the blood flow to the right foot to aid in wound healing and prevent amputation of the right great toe. Procedure, risk, benefits were discussed with her at length and all questions were addressed. Patient does have a history of stage III CKD therefore we will draw BUN and creatinine prior to giving any dye for angiogram. Patient verbalizes understanding of all discussion, agrees with plan, denies any questions. Jul, Gangrene of toe of right foot (ICD-10 - I96) Jul, Non-smoker (ICD-10 - Z78.9) [facility] Other 12-13-2023 History of Present illness Narrative* Kimberly Wright - 06/25/2023 10:40 AM EST Ortho Nurse - Established Patient Intake Room#: 1 --- [employer] for Left knee/leg pain. Hip surgery was in 2014 and knee surgeries were in 2019. Both surgeries were from a fall. Rates her pain at a 3 today. Pain radiates down the leg and makes herleg feel weak. Has had formal PT and had very little relief, never tried injections. Would like to discuss what can be done with her leg. Date: 06/25/2023 11:28 AM Patient: Ashvin Rene MR#: [id number] : 1955 Age: 67 y.o. Referring Physician: Self, Self Insurance: Payor: MEDICARE ANTHEM HMO OR PPO / Plan: MEDICARE ANTHEM HMO OR PPO / Product Type: *NoProduct type* / Chief Complaint Patient presents with Left Knee - Pain Visit Vitals Temp 98.2 F (36.8 C) Ht 1.575 m (5' 2 ) Wt 64 kg (141 lb) BMI 25.79 kg/m Pain 1. Are you having pain? 2. On a scale from 1-10: Recent Labs No results found for: CRP No results found for: SEDRATE No results found for: WBC , WBCCOUNT , WBCFETAL , HGB , HCT , PLATELET , MCV History Past Medical History: Diagnosis Date Anemia Arthritis Cardiac angina Congestive heart failure GERD (gastroesophageal reflux disease) Migraine Renal disease Stroke Past Surgical History: Procedure Laterality Date KNEE SURGERY Bilateral 2019 VALVOTOMY MITRAL OPEN HEART W/ BYPASS Right 2016 HIP FRACTURE [place] Right 2015 GASTRIC BYPASS 2002 HYSTERECTOMY 1979 AORTIC STENT Family History: Her family history is not on file. Social History: Her reports that she has never smoked. She has never used smokeless tobacco. No history on file for alcohol use and drug use. Outpatient Medications Prior to Visit Medication Sig Dispense Refill acetaminophen 500 MG tablet Take 1 tablet by mouth every 6 hours as needed for Mild Pain. BABY ASPIRIN PO Take by mouth. Calcium Citrate 250 MG tablet Take by mouth. cholecalciferol 25 MCG (1000 UNIT) tablet Take 1 tablet by mouth daily. Clopidogrel 75 MG tablet Take 1 tablet by mouth daily. Cyanocobalamin (Vitamin B 12) 100 MCG Lozenge Take by mouth. DULoxetine [address] Particles capsule DR Take 1 capsule by mouth daily. Ergocalciferol 1.25 MG (90486 UT) capsule Take 1 capsule by mouth once a week. faMOTIdine 20 MG tablet Take 1 tablet by mouth 2 times daily. ferrous sulfate 325 (65 Fe) MG tablet Take 1 tablet by mouth 3 times daily with meals. ibandronate 150 MG tablet Take 1 tablet by mouth every 30 days. Liothyronine 5 MCG tablet Take by mouth daily. Loratadine (ALLERGY RELIEF 24-HR PO) Take by mouth. Metoprolol 50 MG tab regular release Take 1 tablet by mouth 2 times daily. Montelukast 10 MG tablet Take 1 tablet by mouth daily. Multiple Vitamin (multivitamin) tablet Take 1 tablet by mouth daily. nitroGLYCERIN 0.4 MG/HR Patch [address] 1 patch on skin daily. Remove 10-12 hr/day omeprazole [address] capsule Take 1 capsule by mouth daily. Ondansetron 4 MG tablet Take 1 tablet by mouth every 8 hours as needed for Nausea / Vomiting. Pregabalin 50 MG capsule Take 1 capsule by mouth 3 times daily. Ranolazine 500 MG Tab SR 12 HR tablet Take 1 tablet by mouth 2 times daily. Rimegepant Sulfate (Nurtec) 75 MG Tab Dispersible Take by mouth. Rosuvastatin Calcium 20 MG Cap Sprinkle Take by mouth. Sucralfate 1 g tablet Take 1 tablet by mouth every 6 hours. Torsemide (DEMADEX PO) Take by mouth. traZODone 50 MG tablet Take 1 tablet by mouth At bedtime. No facility-administered medications prior to visit. Allergies: She has No Known Allergies. Ortho Nurse - Patient Intake Room#: Date: 06/25/2023 11:28 AM Patient: Ashvin Rene MR#: [id number] : 1955 Age: 67 y.o. Referring Physician: Self, Self Insurance: Payor: MEDICARE ANTHEM HMO OR PPO / Plan: MEDICARE ANTHEM HMO OR PPO / Product Type: *NoProduct type* / Chief Complaint Patient presents with Left Knee - Pain Visit Vitals Temp 98.2 F (36.8 C) Ht 1.575 m (5' 2 ) Wt 64 kg (141 lb) BMI 25.79 kg/m Pain Recent Labs No results found for: CRP No results found for: SEDRATE No results found for: WBC , WBCCOUNT , WBCFETAL , HGB , HCT , PLATELET , MCV History Past Medical History: Diagnosis Date Anemia Arthritis Cardiac angina Congestive heart failure GERD (gastroesophageal reflux disease) Migraine Renal disease Stroke Past Surgical History: Procedure Laterality Date KNEE SURGERY Bilateral 2019 VALVOTOMY MITRAL OPEN HEART W/ BYPASS Right 2016 HIP FRACTURE [place] Right 2015 GASTRIC BYPASS 2001 HYSTERECTOMY 1979 AORTIC STENT Family History: Her family history is not on file. Social History: Her reports that she has never smoked. She has never used smokeless tobacco. No history on file for alcohol use and drug use. Additional Social History Y N Notes Do you live alone? [x] [] Who lives with you: Do you have children? [] [] How many: Do you currently work? [] [x] What type of work do you do: Do you have stairs in the home? [] [x] How many do you have to climb to enter your home: What services do you currently receive at home? [] [] Name: Do you have transportation to go to outpatient therapy if needed? [x] [] What Equipment do you have at home? [x] [] [x]Walker, []Crutches, [x]Commode Chair, []Shower [x]Chair, [x]cane, []bracing Are you followed by a servicing rep? [x] [] Name: Dr. Ryan Gordon Are you followed by pain management? [] [x] Name: Are you followed by any other specialists? [] [x] Name: Outpatient Medications Prior to Visit Medication Sig Dispense Refill acetaminophen 500 MG tablet Take 1 tablet by mouth every 6 hours as needed for Mild Pain. BABY ASPIRIN PO Take by mouth. Calcium Citrate 250 MG tablet Take by mouth. cholecalciferol 25 MCG (1000 UNIT) tablet Take 1 tablet by mouth daily. Clopidogrel 75 MG tablet Take 1 tablet by mouth daily. Cyanocobalamin (Vitamin B 12) 100 MCG Lozenge Take by mouth. DULoxetine [address] Particles capsule DR Take 1 capsule by mouth daily. Ergocalciferol 1.25 MG (30382 UT) capsule Take 1 capsule by mouth once a week. faMOTIdine 20 MG tablet Take 1 tablet by mouth 2 times daily. ferrous sulfate 325 (65 Fe) MG tablet Take 1 tablet by mouth 3 times daily with meals. ibandronate 150 MG tablet Take 1 tablet by mouth every 30 days. Liothyronine 5 MCG tablet Take by mouth daily. Loratadine (ALLERGY RELIEF 24-HR PO) Take by mouth. Metoprolol 50 MG tab regular release Take 1 tablet by mouth 2 times daily. Montelukast 10 MG tablet Take 1 tablet by mouth daily. Multiple Vitamin (multivitamin) tablet Take 1 tablet by mouth daily. nitroGLYCERIN 0.4 MG/HR Patch [address] 1 patch on skin daily. Remove 10-12 hr/day omeprazole [address] capsule Take 1 capsule by mouth daily. Ondansetron 4 MG tablet Take 1 tablet by mouth every 8 hours as needed for Nausea / Vomiting. Pregabalin 50 MG capsule Take 1 capsule by mouth 3 times daily. Ranolazine 500 MG Tab SR 12 HR tablet Take 1 tablet by mouth 2 times daily. Rimegepant Sulfate (Nurtec) 75 MG Tab Dispersible Take by mouth. Rosuvastatin Calcium 20 MG Cap Sprinkle Take by mouth. Sucralfate 1 g tablet Take 1 tablet by mouth every 6 hours. Torsemide (DEMADEX PO) Take by mouth. traZODone 50 MG tablet Take 1 tablet by mouth At bedtime. No facility-administered medications prior to visit. Allergies: She has No Known Allergies. Y N Are you allergic to any metals? [] [x] If yes, what metals: Review of Systems System Y N Symptoms Constitutional [] [x] Weight Loss [] [x] Weight Gain [] [x] Chronic Fever [] [x] Insomnia Eyes [] [x] Resent Vision Change [] [x] Cataracts [] [x] Glaucoma [] [x] Any Hx of Metal Fragments in the Eye ENT [] [x] Loss of hearing [] [x] Hearing Aids [] [x] Seasonal Allergies [] [x] Dental Issues Cardiovascular [x] [] Chest Pain [] [x] Angina [x] [] Stent [] [x] Hypertension [] [x] Heart Murmur [] [x] Irregular Pulse [] [x] Pacemaker [] [x] Palpitations [] [x] High cholesteral Respiratory [] [x] Wheezing [] [x] Shortness of Breath [] [x] Pneumonia [] [x] Bronchitis [] [x] Sleep Apnea [] [x] COPD [] [x] Date/ LOC of last CXR: Gastrointestinal [] [x] Heartburn [] [x] Indigestion [] [x] Constipation [] [x] Ulcer [] [x] GI Stomach Bleed [] [x] Diarrhea [] [x] Colon Cancer [] [x] Acid Reflux [] [x] Blood in Stools Musculoskeletal [x] [] Arthritis [x] [] Muscle Weakness [x] [] Joint Pain [x] [] Back Pain [] [x] Fibromyalgia [] [x] Bone Infection [] [x] Swelling - Multiple Joints [] [x] Reflex Sympathetic Dystrophy Skin [] [x] Chronic Rash [] [x] Ulcers [] [x] Eczema [] [x] Psoriasis [] [x] Skin Cancer [] [x] Melanoma Neurologic [] [x] Numbness [x] [] Weakness or loss of sensation in arms or legs [x] [] Leg Pain / Sciatica [] [x] Headaches [] [x] Loss of bowel or bladder control Psychiatric [] [x] Anxiety [] [x] Claustrophobia [] [x] Other Psychiatric Problems Hematologic [x] [] Easy Bruising [x] [] Easy Bleeding [x] [] Blood Transfusion Date: Endocrine [] [x] Hypothyroid [] [x] Hyperthyroid [] [x] Hot Flashes [] [x] Hormone Replacement [] [x] Prednisone Use Does pt have dentures? no * Norman Braga MD - 06/25/2023 10:40 AM EST HPI: Patient is here today to be evaluated for left knee pain. She is a pleasant 67 y.o. female. Primary complaint is pain and discomfort. She has experienced a progressive decline in physical function and quality of life secondary to the discomfort in the left knee. History of hip operation in 2015 and knee operations in 2019 secondary to fall. The pain radiates down the leg and makes her leg feel weak however her primary complaint is the left foot turns in with walking. Her pain is a 3/10. She is here today for evaluation and to determine treatment options. PHYSICAL EXAM: This is an alert, oriented, and age-appropriate female. She is in no distress. Pleasant and cooperative. EXTREMITIES: The lower extremities have no gross deformities. Normal stability.Skin Intact. 5/5 motor. Intact sensation. Normal neurovascular status. Normal coordination. 10-20 degrees of more rotation of left leg when compared to right leg. Full motion of hip. No pain. No impingement. No instability. Contralateral leg has normal alignment. Full motion. No pain. No impingement. No instability. IMAGING: Plain film radiographs were reviewed. Multiple views of the left knee demonstrate distal femoral plate and proximal hip screw in place, no evidence of significant arthritis. IMPRESSION: 1.) Muscle imbalance, overpull of adductor and weakness of abductor muscles, left leg. 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 PLAN: I reviewed my findings with Ashvin. We discussed the diagnosis, radiographs, physical exam findings and treatment options. This is a multifactorial issue. Some asymmetry on how femur is rotated secondary to fractures and bone healing leading to her lack of muscle control of the leg which couldbe contributing to foot rotation. We will start with formal PT to address the left leg, rotational defect, hip and core strength with focus on rotators. Encouraged her to expect several months of formal therapy as well as doing home exercises for improvement. She understands and agrees with the plan of care moving forward. All questions were answered to her satisfaction. Next appointment will be left open to her. I have reviewed the findings of my clinical staff below and agree with their assessment. Vitals: 06/25/23 1116 Temp: 98.2 degrees F (36.8 degrees C) Weight: 64 kg (141 lb) Height: 1.575 m (5' 2 ) Pain Recent Labs No results found for: CRP No results found for: SEDRATE No results found for: WBC , WBCCOUNT , WBCFETAL , HGB , HCT , PLATELET , MCV Past Medical History: Diagnosis Date Anemia Arthritis Cardiac angina Congestive heart failure GERD (gastroesophageal reflux disease) Migraine Renal disease Stroke Past Surgical History: Procedure Laterality Date KNEE SURGERY Bilateral 2019 VALVOTOMY MITRAL OPEN HEART W/ BYPASS Right 2016 HIP FRACTURE TX Right 2015 GASTRIC BYPASS 2001 HYSTERECTOMY 1978 AORTIC STENT History reviewed. No pertinent family history. Social History Socioeconomic History Marital status: Tobacco Use Smoking status: Never Smokeless tobacco: Never Current Outpatient Medications: acetaminophen 500 MG tablet, Take 1 tablet by mouth every 6 hours as needed for Mild Pain., Disp: ,Rfl: BABY ASPIRIN PO, Take by mouth., Disp: , Rfl: Calcium Citrate 250 MG tablet, Take by mouth., Disp: , Rfl: cholecalciferol 25 MCG (1000 UNIT) tablet, Take 1 tablet by mouth daily., Disp: , Rfl: Clopidogrel 75 MG tablet, Take 1 tablet by mouth daily., Disp: , Rfl: Cyanocobalamin (Vitamin B 12) 100 MCG Lozenge, Take by mouth., Disp: , Rfl: DULoxetine [address] Particles capsule DR, Take 1 capsule by mouth daily., Disp: , Rfl: Ergocalciferol 1.25 MG (09778 UT) capsule, Take 1 capsule by mouth once a week., Disp: , Rfl: faMOTIdine 20 MG tablet, Take 1 tablet by mouth 2 times daily., Disp: , Rfl: ferrous sulfate 325 (65 Fe) MG tablet, Take 1 tablet by mouth 3 times daily with meals., Disp: , Rfl: ibandronate 150 MG tablet, Take 1 tablet by mouth every 30 days., Disp: , Rfl: Liothyronine 5 MCG tablet, Take by mouth daily., Disp: , Rfl: Loratadine (ALLERGY RELIEF 24-HR PO), Take by mouth., Disp: , Rfl: Metoprolol 50 MG tab regular release, Take 1 tablet by mouth 2 times daily., Disp: , Rfl: Montelukast 10 MG tablet, Take 1 tablet by mouth daily., Disp: , Rfl: Multiple Vitamin (multivitamin) tablet, Take 1 tablet by mouth daily., Disp: , Rfl: nitroGLYCERIN 0.4 MG/HR Patch 24 HR patch, Place 1 patch on skin daily. Remove 10-12 hr/day, Disp: , Rfl: omeprazole [address] capsule, Take 1 capsule by mouth daily., Disp: , Rfl: Ondansetron 4 MG tablet, Take 1 tablet by mouth every 8 hours as needed for Nausea / Vomiting., Disp: , Rfl: Pregabalin 50 MG capsule, Take 1 capsule by mouth 3 times daily., Disp: , Rfl: Ranolazine 500 MG Tab SR 12 HR tablet, Take 1 tablet by mouth 2 times daily., Disp: , Rfl: Rimegepant Sulfate (Nurtec) 75 MG Tab Dispersible, Take by mouth., Disp: , Rfl: Rosuvastatin Calcium 20 MG Cap Sprinkle, Take by mouth., Disp: , Rfl: Sucralfate 1 g tablet, Take 1 tablet by mouth every 6 hours., Disp: , Rfl: Torsemide (DEMADEX PO), Take by mouth., Disp: , Rfl: traZODone 50 MG tablet, Take 1 tablet by mouth At bedtime., Disp: , Rfl: No Known Allergies documented in this [facility]11-07-2022 Evaluation note* Encounter Date Diagnosis Assessment Notes Treatment Notes Treatment Clinical Notes May, Right hand pain (ICD-10 - M79.641) May, Skin tear of right forearm without complication, initial encounter (ICD-10 - S51.811A) Keep the wound clean and dry. Apply antibiotic ointment and a dressing daily. Leave the wound open when you shower for cleansing purposes. Take the antibiotic as prescribed until gone. Follow-up with your family physician, call today for an appointment for recheck in the next 5 to 7 days May, Contusion of right hand, initial encounter (ICD-10 - S60.221A) May, Other Skin wound mate roque was printed [facility] Other 02-02-2022 Note [id number]#1.00[facility]02-01-2022 NoteEducation Materials Obstetrics and Gynecology Edema Edema is when you have too much fluid in your body or under your skin. Edema may make your legs, feet, and ankles swell up. Swelling is also common in looser tissues, like around your eyes. This is acommon condition. It gets more common as you get older. There are many possible causes of edema. Eating too much salt (sodium) and being on your feet or sitting for a long time can cause edema in your legs, feet, and ankles. Hot weather may make edema worse. Edema is usually painless. Your skin may look swollen or shiny. Follow these instructions at home: ? Keep the swollen body part raised (elevated) above the level of your heart when you are sitting or lying down. ? Do not sit still or stand for a long time. ? Do not wear tight clothes. Do not wear garters on your upper legs. ? Exercise your legs. This can help the swelling go down. ? Wear elastic bandages or support stockings as told by your doctor. ? Eat a low-salt (low-sodium) diet to reduce fluid as told by your doctor. ? Depending on the cause of your swelling, you may need to limit how much fluid you drink (fluid restriction). ? Take [id number]-gnumojn and prescription medicines only as told by your doctor. Contact a doctor if: ? Treatment is not working. ? You have heart, liver, or kidney disease and have symptoms of edema. ? You have sudden and unexplained weight gain. Get help right away if: ? You have shortness of breath or chest pain. ? You cannot breathe when you lie down. ? You have pain, redness, or warmth in the swollen areas. ? You have heart, liver, or kidney disease and get edema all of a sudden. ? You have a fever and your symptoms get worse all of a sudden. Summary ? Edema is when you have too much fluid in your body or under your skin. ? Edema may make your legs, feet, and ankles swell up. Swelling is also common in looser tissues, like around your eyes. ? Raise (elevate) the swollen body part above the level of your heart when you are sitting or lyingdown. ? Follow your doctor's instructions about diet and how much fluid you can drink (fluid restriction). This information is not intended to replace advice given to you by your health care provider. Make sure you discuss any questions you have with your health care provider. Document Revised: 07/03/2018 Document Reviewed: 07/18/2017 [employer] Patient Education ? 2019 [employer].[facility] [id number] Note [facility] Discharge Summary PERSON INFORMATION Name ASHVIN RENE Age 65 Years 1955 Sex FEMALE Language British PCP TUSHAR SOLANO JR. Marital Status Med Service Med/Surg Acct# Arrival 08/06/2021 17:10:50 Visit Reason ANEMIA, ELEVATED TROPONIN Acuity LOS 007 15:53 Address: [address] [place] [address] Comment: PROVIDER INFORMATION VITALS INFORMATION Vital Sign Triage Latest Temp Oral 36.8 DegC 36.9 DegC Temp Temporal 35.9 DegC 36.3 DegC Temp Intravascular Temp Axillary Temp Rectal 02 Sat 99 % 99 % Respiratory Rate 18 br/min 18 br/min Peripheral Pulse Rate 108 bpm 92 bpm Apical Heart Rate 100 bpm 100 bpm Blood Pressure 106 mmHg / 85 mmHg 105 mmHg / 69 mmHg Comment: MEDICAL INFORMATION Allergy Info: Aggrenox; Lipitor; Serzone; Zocor; Niaspan ER; codeine Medication List: New Medications [facility], [address] [place] [address] [phone], [phone] ferrous sulfate (ferrous sulfate 325 mg (65 mg elemental iron) oral tablet) 1 tab(s) Oral 2 times aday for 30 Days. Refills: 1. torsemide (torsemide 20 mg oral tablet) 1 tab(s) Oral every other day for 30 Days. [facility] Refills: 1. Medications That Were Updated - Follow Below Instructions Other Medications Updated: fludrocortisone (fludrocortisone 0.1 mg oral tablet) 0.5 tab(s) Oral every day. TAKE IN MORNING MEAL, HOLD IF STANDING BP [id number]. Medications to Continue That Have Not Changed Other Medications acetaminophen (Tylenol 8 Hour 650 mg oral tablet, extended release) 1 tab(s) Oral Every 8 hours as needed Pain - Mild. acetaminophen-dextromethorphan (Delsym Cough and Sore Throat 650 mg-20 mg/20 mL oral liquid) 20 Milliliter Oral every 4 hours. albuterol (albuterol 90 mcg/inh inhalation aerosol) 2 puff(s) Inhalation Every 4 hours as needed for wheezing. calcium citrate (calcium (as calcium citrate) 250 mg oral tablet) 1 tab(s) Oral 3 times a day. cholecalciferol (cholecalciferol 125 mcg (5000 intl units) oral tablet, disintegrating) 1 tab(s) Oral every day. multivitamin (Multi Vitamin+) omeprazole (omeprazole 20 mg oral delayed release capsule) 1 cap(s) Oral every day. ondansetron (ondansetron 4 mg oral tablet) 1 tab(s) Oral 3 times a day as needed Nausea. ranolazine (ranolazine 500 mg oral tablet, extended release) 1 tab(s) Oral every 12 hours. rosuvastatin (rosuvastatin 20 mg oral tablet) 1 tab(s) Oral every day. sucralfate (sucralfate 1 g oral tablet) 1 tab(s) Oral four times a day (before meals and at be. traZODone (traZODone 150 mg oral tablet) 1 tab(s) Oral once a day (at bedtime). No Longer Take the Following Medications clopidogrel (clopidogrel 75 mg oral tablet) 1 tab(s) Oral every day. midodrine (midodrine 5 mg oral tablet) potassium chloride (Potassium Chloride (Lxo-Rvhp-Ndq 10) 10 mEq oral tablet, extended release) 1 tab(s) Oral 3 times a day. vancomycin (Firvanq 25 mg/mL oral liquid) 5 Milliliter Oral 4 times a day. Comment: Lab and Radiology Results Laboratory or Other Results This Visit (last charted value for your 08/06/2021 visit) Hematology 08/14/2021 4:17 AM Hct: 27.8 % -- Normal range between ( 33.7 and 40.4 ) Hgb: 8.1 gm/dL -- Normal range between ( 11.3 and 15.9 ) MCH: 27 pg -- Normal range between ( 24 and 34 ) MCHC: 29 gm/dL -- Normal range between ( 26 and 37 ) MCV: 94 fL -- Normal range between ( 81 and 100 ) MPV: 9.3 fL -- Normal range between ( 6.3 and 10.2 ) Platelet: 280 x103/mcL -- Normal range between ( 138 and 427 ) RBC: 2.96 x106/mcL -- Normal range between ( 3.70 and 5.30 ) RDW: 17.9 % -- Normal range between ( 11.5 and 15.0 ) WBC: 4.9 x103/mcL -- Normal range between ( 3.5 and 10.5 ) Auto Eos %: 2.9 % -- Normal range between ( 0.9 and 4.0 ) Auto Lymph %: 31 % -- Normal range between ( 14 and 48 ) Auto Neut %: 58 % -- Normal range between ( 44 and 88 ) Eos Abs#: 0.1 x103/mcL -- Normal range between ( 0.0 and 0.4 ) Lymph Abs#: 1.5 x103/mcL -- Normal range between ( 1.3 and 2.9 ) Gordon Abs#: 0.4 x103/mcL -- Normal range between ( 0.0 and 0.8 ) Auto Baso %: 1.0 % -- Normal range between ( 0.2 and 2.0 ) Auto Gordon %: 7 % -- Normal range between ( 1 and 12 ) Baso Abs#: 0.0 x103/mcL -- Normal range between ( 0.0 and 0.2 ) Neut Abs#: 2.8 x103/mcL -- Normal range between ( 1.5 and 9.2 ) 08/07/2021 7:30 AM Reticulocyte: 2.8 % -- Normal range between ( 0.5 and 1.5 ) 08/06/2021 5:54 PM Hypochrom: 1+ RBC Morph: See Morphology Aniso: 1+ Microcyte: 1+ Chemistry 08/14/2021 4:17 AM Creatinine Level: 0.68 mg/dL -- Normal range between ( 0.60 and 1.30 ) Albumin Level: 3.0 gm/dL -- Normal range between ( 3.5 and 5.0 ) Alk Phos: 35 IU/L -- Normal range between ( 32 and 91 ) Bili Total: 0.5 mg/dL -- Normal range between ( 0.3 and 1.2 ) BUN: 14 mg/dL -- Normal range between ( 8 and 26 ) Chloride Level: 108 mmol/L -- Normal range between ( 101 and 111 (more content not included)...[id number] NoteDATE OF PROCEDURE: 08/10/2021 SURGEON: Noe Reed MD ANESTHESIA: Rony Ordonez MD ([facility] [place]) PREOPERATIVE DIAGNOSIS: GI-bleed. POSTOPERATIVE DIAGNOSES: 1. Normal upper endoscopy. 2. Small polyp x2 in the cecum. 3. Lipomatous ileocecal valve. 4. Otherwise normal colonoscopy. PROCEDURES: 1. Esophagogastroduodenoscopy. 2. Total colonoscopy. 3. Removal of cecal polyps with the cold snare and cold biopsy forceps. INDICATIONS: Ashvin is a 65-year-old lady who has a history of Clostridium difficile colitis and COVID in the last 5 weeks. She does have a history of coronary artery disease and is on Plavix. Her hemoglobin went down to 7.4. Her stool was occult blood positive. She has noticed no gross blood per rectum. There has been no significant melena. She was given 2 units of packed RBCs and her hemoglobin went to 9.9, but after her Plavix was re-started the hemoglobin went back down to 7.2. Therefore, she is brought in now for a planned upper and lower endoscopy. FINDINGS: The esophageal mucosa appeared normal. The gastric remnant and jejunum both appeared unremarkable. No old blood was seen. There was no active bleeding. There was no obvious bleeding source. The colonoscope was passed to the cecum and then into the terminal ileum. The prep was pretty good. There was a small polyp in the cecum. 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 There was another sessile polyp on the lipomatous valve. Otherwise, the colon, rectum and terminal ileum appeared normal. There was no old blood in the colon. No lesions were seen to explain the anemia. PROCEDURE: The patient was placed in the left lateral position and MAC sedation was initiated. The gastroscope was introduced through the mouth and advanced distally under direct vision. We slid easily down through the esophagus. We then entered the gastric remnant and then went into the jejunum. The scope was advanced for a short distance into the jejunum. It appeared unremarkable. The scope was then gradually withdrawn. There was no gross inflammation. No ulcers were seen. The gastric remnant appeared normal. The scope was able to be retroflexed. The GE-junction appeared normal from below. The scope was then straightened and withdrawn. We came up through the GE-junction which appeared normal from above. The esophageal mucosa was normal throughout its length. No old blood was seen during the procedure. There was no obvious bleeding source. The patient was then repositioned. A digital rectal examination revealed liquid stool with no palpable mass. The colonoscope was then introduced and advanced proximally under direct vision. She did have some persistent spasm in the colon. We were able to gradually work our way around the entire length of the colon to the cecum. Once there, the typical cecal markings were seen. The prep was pretty good. She was noted to have a small polyp in the cecum. This was removed with the cold snare and retrieved in a polyp trap. The ileocecal valve was rather lipomatous. I was able to slip through the valve into the terminal ileum. The ileum appeared normal. The scope was then brought back into the cecum. On the back side of the lipomatous area of the valve, there was a sessile polyp. This was too flat and in a position that I could not snare it. It was removed with multiple bites of the cold biopsy forceps. The scope was then withdrawn. The prep was pretty good. No other polyps or masses were seen. I did not see any significant diverticula. There was no old blood throughout the length of the colon. There was no active bleeding. There was no obvious bleeding source. The scope was retroflexed in the rectum and it appeared unremarkable. WITHDRAWAL TIME: 21 minutes. DISPOSITION: She tolerated the procedure well. She will be returned to the [address] [place] [address]. We will await the pathology results. Noe Reed M.D. JOB #: [id number] CC: Tushar Solano MD [Electronically Signed on: 08/22/2021 08:54 EST] Noe Reed MD [Verified on: 08/22/2021 08:54 EST] Noe Reed MD [Transcribed on: 08/10/2021 12:12 EST] [facility]09-30-2021 Evaluation note* Encounter Date Diagnosis Assessment Notes Treatment Notes Treatment Clinical Notes Mar, Nausea & vomiting (ICD-10 - R11.2) Nausea and vomiting: adult material was printed Mar, Epigastric pain (ICD-10 - R10.13) [facility] Other 05-28-2021 NoteHNO ID: [id number] Author: Jaimee Pirece RN Service: Care Management Author Type: Registered Nurse Type: Care Mgt Progress Note Filed: 12/08/2020 10:59 AM Note Text: CARE MANAGEMENT DISCHARGE NOTE SERVICE DATE: 12/08/2020 SERVICE TIME: 10:58 AM LOS: 0 days Needs Prior to Discharge: None Met with pt at bedside. No skilled needs identified. Pt ready for discharge today. Pt verbalized agreement and understanding of the discharge plan. Family to provide transportation. Bedside nurse to provide discharge instructions. SIGNATURE: Jaimee Pierce RN PATIENT NAME: Ashvin Rene DATE: December 08, 2020 TIME: 10:58 AM PAGER/CONTACT #: [phone] NoteHNO ID: [id number] Author: Jaimee Pierce RN Service: Care Management Author Type: Registered Nurse Type: Care Mgt Progress Note Filed: 12/08/2020 9:58 AM Note Text: CARE MANAGEMENT PROGRESS NOTE SERVICE DATE: 12/08/2020 SERVICE TIME: 9:57 AM LOS: 0 days Needs Prior to Discharge: None Extended recovery pt. Plan for discharge today, no skilled needs. SIGNATURE: Jaimee Pierce RN PATIENT NAME: Ashvin Rene DATE: December 08, 2020 TIME: 9:57 AM PAGER/CONTACT #: [phone] [facility]05-27-20[facility] NoteHNO ID: [id number] Author: Nay Joseph MD Service: ? Author Type: Physician Type: Progress Notes Filed: 12/07/2020 6:35 PM Note Text: Preliminary Cardiac Catheterization and Percutaneous Coronary Intervention Note (formal report to follow) 7Fr 35 mm length RFA access Manual compression hemostasis Limted diagnostic catheterization findings: LM - mild LAD - proximal 100% occlusion LCX - heavily calcified throughout its length. Moderate sized OM1 has mild disease. Large PL branch has sequential, heavily calcified, eccentric 90%, 80%, and 80% stenoses. RCA - not injected, known occluded SVG to RCA - patent, with ~50-60% focal stenosis in distal RCA distal to graft IFR across the distal stenosis = 0.96 - NOT significant Percutaneous Coronary Intervention #Successful PCI of the LCX Heparin anticoagulation 7Fr XB3.5 guide catheter Technically complicated, but ultimately successful procedure. Crossed with some difficulty with Edouard Blue wire into the PL branch. Could not cross stenoses with Finecross or SupplierSyncba flex 135 mm microcatheters. 7Fr Telescope guide extension placed in proximal LCX, but could not pass to distal vessel. Could not cross with 1.5 mm Takeru balloon Could not cross with Roto-Floppy wire. Crossed with 1.0 mm Sapphire balloon, but balloon ruptured at 4 nash inflation and became entrapped in the first stenosis. Balloon catheter broke on attempted removal, requiring removal of both balloon and guidewire - no residual material in artery. Recrossed with Viperwire supported by microcatheter Orbital atherectomy performed with Diamondback 1.25 mm device with multiple passes at low speed, crossing the stenoses. Wire exchanged for Edouard Blue Sequential PTCA with 1.5 mm Takeru, 2.5 mm Takeru, and 2.5 mm NC Emerge at high pressure. Orsiro 2.5 x 26 mm and 2.5 mm x 26 tandem overlapping sirolimus eluting stents placed in distal LCX into the PL branch, post-dilated with 3.0 mm NC balloon to high pressure. Proximal LCX was noted to have mildly obstructive dissection for guide catheter and guide extension. Synergy 3.0 x 32 mm everolimus eluting stent extending from 1mm distal to ostium into mid LCX, not overlapping with Orisiro stents in PL. The segment of LCX from which OM originates is not stented. Final result: 90%, 80%, 80% to 10%, FANY 3 flow Impression: 1. CAD - severe disease. Critical sequential stenoses in very heavily calcified LCX-PL. Stenosis in distal RCA beyond graft insertion was moderate angiographically and not hemodynamically significant by IFR. 2. S/p technically complicated and difficult, but ultimately successful PCI of the LCX into the PL with orbital atherectomy and drug eluting stents. Plan: 1. No further targets for coronary revascularization. 2. 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 Milli Foster and Dr. Erika Kohler)[facility]05-27-[facility] NoteProcedure (CATHMN) ASHVIN RENE ([id number]) 1955 F Date Time Provider Department 12/07/20 NAY JOSEPH CATHOK During your visit today, we recorded the following information about you: Dirk Joseph MD 12/07/2020 6:35 PM Signed Preliminary Cardiac Catheterization and Percutaneous Coronary Intervention Note (formal report to follow) 7Fr 35 mm length RFA access Manual compression hemostasis Limted diagnostic catheterization findings: LM - mild LAD - proximal 100% occlusion LCX - heavily calcified throughout its length. Moderate sized OM1 has mild disease. Large PL branch has sequential, heavily calcified, eccentric 90%, 80%, and 80% stenoses. RCA - not injected, known occluded SVG to RCA - patent, with ~50-60% focal stenosis in distal RCA distal to graft IFR across the distal stenosis = 0.96 - NOT significant Percutaneous Coronary Intervention #Successful PCI of the LCX Heparin anticoagulation 7Fr XB3.5 guide catheter Technically complicated, but ultimately successful procedure. Crossed with some difficulty with Edouard Blue wire into the PL branch. Could not cross stenoses with Finecross or SupplierSyncba flex 135 mm microcatheters. 7Fr Telescope guide extension placed in proximal LCX, but could not pass to distal vessel. Could not cross with 1.5 mm Takeru balloon Could not cross with Roto-Floppy wire. Crossed with 1.0 mm Sapphire balloon, but balloon ruptured at 4 nash inflation and became entrapped in the first stenosis. Balloon catheter broke on attempted removal, requiring removal of both balloon and guidewire - no residual material in artery. Recrossed with Viperwire supported by microcatheter Orbital atherectomy performed with Diamondback 1.25 mm device with multiple passes at low speed, crossing the stenoses. Wire exchanged for Edouard Blue Sequential PTCA with 1.5 mm Takeru, 2.5 mm Takeru, and 2.5 mm NC Emerge at high pressure. Orsiro 2.5 x 26 mm and 2.5 mm x 26 tandem overlapping sirolimus eluting stents placed in distal LCX into the PL branch, post-dilated with 3.0 mm NC balloon to high pressure. Proximal LCX was noted to have mildly obstructive dissection for guide catheter and guide extension. Synergy 3.0 x 32 mm everolimus eluting stent extending from 1mm distal to ostium into mid LCX, not overlapping with Orisiro stents in PL. The segment of LCX from which OM originates is not stented. Final result: 90%, 80%, 80% to 10%, FANY 3 flow Impression: 1. CAD - severe disease. Critical sequential stenoses in very heavily calcified LCX-PL. Stenosis in distal RCA beyond graft insertion was moderate angiographically and not hemodynamically significant by IFR. 2. S/p technically complicated and difficult, but ultimately successful PCI of the LCX into the PL with orbital atherectomy and drug eluting stents. Plan: 1. No further targets for coronary revascularization. 2. USP DAPT STAFF PHYSICIAN: Dirk Joseph MD DATE OF SERVICE: 12/07/2020 TIME OF SERVICE: 6:19 PM (Procedure performed with Dr. Milli Foster and Dr. Erika Kohler) Allergies As of Date: 12/07/2020 Noted Allergy Reaction CODEINE 11/24/2020 1 - Mental Status Change 4 - Hives Date Reviewed: 11/24/2020 Reviewed by: Demetra Guadalupe RN - Fully Assessed Primary Visit Diagnosis:Coronary artery disease of cabazon artery of cabazon heart with stable angina pectoris (HCC) [I25.118] Other Visit Diagnosis:S/P drug eluting coronary stent placement [Z95.5] Prescriptions as of 12/07/2020 Sig: ACETAMINOPHEN 500 MG TABLET Take 500 mg by mouth every 8 * CALCIUM 500 ORAL Take 1 tablet by mouth once d* CLOPIDOGREL 75 MG TABLET - FO* Take 75 mg by mouth once nina* DEXAMETHASONE 2 MG TABLET Take 2 mg by mouth as directe* DULOXETINE 60 MG CAPSULE,STEFANIA* Take 60 mg by mouth daily at * ERGOCALCIFEROL (VITAMIN D2) 1* Take 50,000 Units by mouth fo* FAMOTIDINE 20 MG TABLET Take 20 mg by mouth twice yaneth* FLUDROCORTISONE 0.1 MG TABLET Take 0.1 mg by mouth every mo* FEXOFENADINE 180 MG TABLET Take 180 mg by mouth once yaneth* ISOSORBIDE MONONITRATE ER 30 * Take 15 mg by mouth once nina* MAGNESIUM OXIDE 400 MG (241.3* Take 400 mg by mouth twice da* MIDODRINE 5 MG TABLET Take 5 mg by mouth three time* NITROGLYCERIN 0.4 MG SUBLINGU* Dissolve 0.4 mg under the ton* PANTOPRAZOLE 40 MG TABLET,DEL* Take 40 mg by mouth once nina* RANOLAZINE ER 1,000 MG TABLET* Take 1 tablet by mouth twice * ROSUVASTATIN 20 MG TABLET Take 20 mg by mouth once nina* TRAZODONE 150 MG TABLET Take 150 mg by mouth daily at* ONDANSETRON HCL 4 MG TABLET Take 4 mg by mouth every 8 ho* ACARBOSE 100 MG TABLET Take 100 mg by mouth once yaneth* Problem List As Of Date 12/07/2020 Noted Resolved Coronary artery disease of cabazon artery of otilio*11/24/2020 S/P CABG (coronary artery bypass graft) [Z95.1] 11/24/2020 Pure hypercholesterolemia [E78.00] (more content not included)... [facility]05-27-[facility] NoteHNO ID: [id number] Author: Milli Foster MD Service: Cardiovascular Medicine Author Type: Fellow Type: Procedures Filed: 12/08/2020 12:27 PM Note Text: Ashvin Rene DATE: December 08, 2020 Attending: Dr. Nay Joseph Diagnostic Fellow: Erika Kohler MD Interventional Fellow: Milli Foster MD HISTORY OF PRESENT ILLNESS: Ms. Rene is a 65 year old female with a history of coronary artery disease s/p CABG 2014 (patent SVG-RCA and ROMERO-LAD), hypertension and hyperlipidemia who presents today for PCI to the circumflex and iFR of the SVG-RCA. DIAGNOSTIC ANGIOGRAPHY Diagnostic angiography showed severe calcific serial stenoses in the mid/distal circumflex. PROCEDURES PERFORMED: - Orbital atherectomy of the circumflex with a Diamondback 1.25mm device - PCI to the distal circumflex-PL with a 2.5x26mm Orsiro EES - PCI to the mid-distal circumflex with overlapping 2.5x26mm Orsiro EES (post-dilated with a 3.0mm NC balloon) - PCI to the proximal circumflex with a 3.0x32mm Synergy XD EES PROCEDURAL DETAILS Access:7F R femoral artery Guide Catheter(s): 7Fr XB 3.5, MPB Guidewire(s): edouard blue, viper wire Other Equipment: CSI Hemostasis: Manual Anticoagulation: UFH Additional Procedural Medications: PROCEDURAL NARRATIVE: We engaged the SVG-RCA with a MPB1 guide catheter. After administering heparin to a goal ACT of >250s, we advanced an Opsens pressure wire to the distal RCA and measured iFR 0.96. We then exchanged guides for an XB 3.5. We wired the circumflex with a edouard blue via a Finecross microcatheter. Notably the distal circumflex was extremely tortuous and difficult to navigate with a coronary wire, and there was a region of severe calcification in the mid circumflex. We were unable to advance the microcatheter across the lesion- we tried with a Mamba flex microcatheter which would also not cross and we did not have enough guide support. Despite using a 7F telescope we were unable to advance the microcatheter. We did note a dissection in the proximal circumflex likely due to the guide extension. The patient remained stable hemodynamically throughout the case. We attempted pre-dilation with a 1.5x15mm Takeru but this balloon would also not cross, so we dilated with a 1.0x15mm Sapphire balloon though the balloon ruptured at 4 nash and became entrapped in the lesion. The balloon catheter shaft broke upon trying to withdraw the balloon and the balloon was stuck in the vessel. We removed the entire system including guidewire and there was no residual material left in the artery. We then advanced a viper wire via a microcatheter to perform orbital atherectomy of the circumflex with a 1.25mm device and were able to cross the serial lesions in the mid/distal circumflex. We exchanged the viper wire for a edouard blue and performed serial inflations with 1.5mm and 2.5mm Takeru balloons, as well as 2.5mm NC balloon. We then stented the distal circumflex into PL with a 2.5x26mm Orsiro EES along with an overlapping 2.5x26mm Orsiro EES. We post-dilated the stents with a 3.0x15mm NC balloon (proximal/mid). We then stented the proximal circumflex with a 3.0x32mm Synergy XD EES (not overlapped with the prior stents, to avoid covering the OM1). Final angiography showed no evidence of dissection or perforation. There was FANY 3 flow and 0% residual stenosis. PLAN: 1. ASA 81mg daily, indefinitely 2. Plavix 75mg daily for at least 6 months 3. Cardiac medical therapy and aggressive risk factor modification. Cardiac rehabilitation. 4. Transferred to cardiac stepdown in stable condition, overnight observation. COMPLICATIONS None Please do not hesitate to contact me with questions. Milli Foster MD Fellow, Interventional Cardiology Pager: [phone] 12/08/2020 11:34 [facility]05-14-2021 NoteHNO ID: [id number] Author: Nay Joseph MD Service: ? Author Type: Physician Type: Progress Notes Filed: 11/29/2020 7:54 AM Note Text: [facility] [place] [facility] Department of Cardiovascular Medicine SECTION OF INTERVENTIONAL CARDIOLOGY OUTPATIENT VISIT DATE November 23, 2020 OUTPATIENT VISIT TYPE NEW PRIMARY CARE PHYSICIAN: Tushar Solano Jr DO (DrBerhane) [address] [facility] [address] [place] [address] REFERRING PHYSICIAN: Waqas Mabry MD [facility] [address] [facility] [address] CHIEF COMPLAINT: No chief complaint on file. HISTORY OF PRESENT ILLNESS: Ms. Rene is a 65 year old female who presents today for second opinion regarding severe CAD. History detailed below. In brief: CRFs: HTN, lipids, FHx 2013 - PCI at OSH - no information (liklely mid LAD based upon subsequent angiogram) 2015 - CABG x 2 at OSH - ROMERO to LAD, SVG to RCA 2016 - two heart attacks and a stroke per patient, leading to catheterization and loop recorder placement. 2016 - catheterization at OSH reportedly showing atretic ROMERO (ROMERO is NOT atretic by my review of subsequent angiogram) 10/13/2020 - Stress nuclear at OSH: Ischemia in apical, anterior/anteriolateral, and inferoseptal segments. LVEF 72%, TID 1.58 10/25/2020 - Cardiac catheterization at OSH (by my review of images): LM - very short, nearly two separate coronary ostia LAD - heavily calcified proximal 90% subtotal occlusion, then 100% mid occlusion LCX - heavy calcification throughout. Large PL1 with ostial ~50% stenosis. Large PL2 with very heavily calcified tandem 95% eccentric stenoses, followed by moderate caliber tortuous distal segment. RCA - mid diffuse 100% occlusion ROMERO to LAD - ROMERO is widely patent. LAD is 100% occluded immediately distal to graft insertion, with bridging collaterals to small caliber, severely diffusely diseased distal and apical LAD. SVG to distal RCA - widely patent. Distal RCA beyond the graft has ~60-70% focal stenosis, perfusing small to moderate sized diffusely diseased distal vessel. LV - focal inferoapical severe hypokinesia, overall normal Over last 6 months, has had current symptoms: - tired all the time, weak, nausea/emesis, dizzy, coughing - chest discomfort - occurs unpredictably a few times per week, usually at rest. Resolves spontaneously over ~ 3 minutes. - shortness of breath with exertion - on activities such as walking to her car, running vacuum, relieved with rest in ~4-5 minutes. This has been present for years, but is worse recently and seems to limit her activity. When questioned, she feels that her most limiting symptoms are her shortness of breath. Since starting ranolazine 3 months ago, seems to have had some improvement. She has longstanding labile BP, dizziness, syncope for last 3-5 years - has been on midodrine during that time. NURSING INTAKE: PMHX CAD CABG X 2 2014 L-LAD SVG-dRCA HTN HLP Loop recorder 05/24/16 CVA-2016 Family history of CAD Current symptoms: progressive fatigue, decreasing energy, weakness, near-syncope, ALLAN, palpitations, cough, PND, nANDv. 2 episodes of chest tightness w/ 2nd one last evening heavines , resolved spontaneously Symptomatic hypotension-reports bp can be as low as 70's/50's 2013 PCI to unknown vessel (heartburn resolved after PCI) 2015 CABG x 2 L-LAD SVG-dRCA (heartburn, abnormal stress-symptoms resolved after CABG) 2016 CVA and (?) [place] 05/24/16 Echo ? Normal left ventricular end-diastolic dimension. Normal left ventricular ejection fraction ? Left atrium is mildly dilated. The left atrial appendage is visualized. No thrombus present in the left atrial appendage ? An agitated saline bubble study was performed and demonstrated the presence of a right to left shunt ? Bicuspid aortic valve is present with raphe noted. Left and right coronary cusp fusion. No aortic stenosis. Moderate aortic valve regurgitation ? The mitral valve leaflets appear to be thickened. No mitral valve stenosis. Trace mitral regurgitation 06/18/16 Coronary angiogram ? Multivessel coronary artery disease ? One of 2 bypass grafts are patent. With a atretic ROMERO to the LAD that fills a very distal and small LAD system and is not amenable to percutaneous coronary intervention ? Low normal LV systolic function with?an EF in the 50 percent range. With severe apical akinesis. 10/12/20 Lexiscan cardiolite stress test 1. Rest EKG: ?Sinus with prior septal infarction. ?Lexiscan EKG: ? Unchanged. ?No clinical or EKG markers for ischemia with Lexiscan injection 2. Normal LV function with EF 72%. ?Normal LV contractile pattern. ?T.i.d. 1.58. 3. Technically difficult study. ?Fixed + reversible inferoseptal defect consistent with infarction/ischemia. ?Additionally moderate area of apical ischemia +moderate area of anterior/anterolateral (more content not included)... [facility]04-29-2021 Miscellaneous Notes* Telephone Encounter - Pilar VeronicaAshvin - 11/09/2020 10:10 AM EDT Patient: Ashvin Rene Date of : 1955 Patient phone number: [phone] Referring Provider for the encounter: Dr Waqas Mabry Requesting Provider: Cardiology Reason for requesting visit (RFV/signs and symptoms/diagnosis): 2nd Opinion - Severe CAD Person calling: caregiver: ERIC Return call to: self Medical Records/Insurance Card scanned into Epic: Yes Comments: N/A [facility] noteNo InformationNort[facility] Other Evaluation noteNo assessment information available [facility] Work Phone: Evaluation note* Diagnosis Left knee pain, unspecified chronicity- Primary [facility] Diagnosis 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)- Primary Gangrene (CMS/HCC) Gangrene Pain in toe of right foot Pain in soft tissues of limb Arteriosclerosis of arteries of extremities (CMS/HCC) [facility] Stenosis of left carotid artery Occlusion and stenosis of carotid artery without mention of cerebral infarction Stenosis of left carotid artery- Primary Occlusion and stenosis of carotid artery without mention of cerebral infarction documented in this encounter [facility] [employer] SystemHistory general Narrative - Reported* Type Description Date Medical History Cholesterol Medical History heart disease Medical History hypertension Surgical History left hip Surgical History stomach Surgical History heart stent Surgical History bypass Surgical History gastric bypass Hospitalization History see above [facility] Other InstructionsNot on filedocumented in this encounter [facility] Advance Directives No Advanced Directives Records Found Advance Directive Response Recorded Date/ Time Advance Directives No June 11:08am Chief Complaint and Reason for Visit Chief Complaint Right Eye Cataract Left Eye Cataract Chief Complaint PAD w/ Gangrene Righ t Great Toe Assessments No Assessments Information Available Family History No Family History Records Found Relationship Condition Age at Onset Recorded Date/T bonilla father Myocardial infarction Unknown Not Specified Diabetes mellitus Unknown History of coronary artery bypass surgery Unknown Discharge Instructions Additional Instructions POST CATARACT SURGERY INSTRUCTIONS EYEDROPS First day (24 hours) [Ocuflox or Vigamox and Pred Forte-use 1 drop to operative eye every hour while awake.] [Artificial tears- May use 1 drop 4 times a day as needed in the surgical eye.] Next day [Ocuflox or Vigamox-continue to use the drop in the surgery eye 4 times per day for 1 week.] [Pred Forte-start using the drop in the surgery eye 4 times per day for 1 week, then taper to 3 times per day for 1 week, 2 times a day for 1 week, then once a day for 1 week.] [Artificial tears- May use 1 drop 4 times a day as needed in the surgical eye.] -Wait 5 minutes or more between using the different medications. -Please bring all your eyedrops to every follow-up visit. BATHING: You may shower, bathe, or wash her hair normally after the surgery. SUNGLASSES: Please bring sunglasses for your ride home. Some people are light- sensitive for a few weeks following surgery. Wear sunglasses for comfort. Sunglasses are not required. DUE TO ANESTHESIA: DO NOT make complex decision/sign legal documents for 24 hours after your procedure. No smoking or drinking alcohol for 24 hours. EYE RUBBING: DO NOT RUB YOUR EYE for at least 4 weeks. BLUR: Blurriness is common for several days to weeks. IRRITATION: Mild irritation or watering eye is common. MEDICATION: Continue/resume normal medications, including eye drops. Patient educated on importance of managing medication information: -Give list of medications to primary care physician. -Update information when medications are discontinued, doses are changed or new medications added. -Carry medication list with you at all times in case of emergency. Call if questions/problems occur: If you experience 1. Persistent pain/vomiting 2. Sudden worsening of your eyesight. Please call your farm products shipper during normal business hours. If after business hours call Dr. Deng Humphreys at his cell [phone] or his office [phone]. Summary Purpose Reason for Referral Specialty Diagnoses / Procedures Referred By Teofilo serrato Referred To Contact Diagnoses Stenosis of left carotid artery Procedures [place] [address] [place] [address], [address] [place] [address] [address] [place] [address] Phone: [phone] Referral ID Status Reason Start Date Expiration Date Visits Re quested Visits Authorized [id number] Closed 10/06/2023 10/05/2024 1 1 Specialty Diagnoses / Procedures Referred By Contac t Referred To Contact Diagnoses Left knee pain, unspecified chronicity Norman Braga MD [address] [place] [id number] Referral ID Status Reason Start Date Expiration Date V isits Requested Visits Authorized [id number] New Request 06/25/2023 07/19/2024 1 1 Scheduling Instructions . Specialty Diagnoses / Procedures Referred By Contac t Referred To Contact Diagnoses Left knee pain, unspecified chronicity Procedures XR KNEE LEFT 4+ VIEWS Norman Braga MD [address] [place] [id number] Referral ID Status Reason Start Date Expiration Date V isits Requested Visits Authorized [id number] Pending Review 06/18/2023 07/12/2024 1 1 Specialty Diagnoses / Procedures Referred By Contac t Referred To Contact Diagnoses Left knee pain, unspecified chronicity Procedures XR BONE LENGTH STUDY Nomran Braga MD [address] [place] [id number] Referral ID Status Reason Start Date Expiration Date V isits Requested Visits Authorized [id number] Pending Review 06/18/2023 07/12/2024 1 1 Additional Source Comments Source Comments (unrecognize d section and content) In the event this informatio n is protected by the Federal Confidentiality of Alcohol and Drug Abuse Patient Records regulations: The Federal rules restrict any use of the information to criminally investigate or prosecute any alcohol or drug abuse patient.[facility] Reason for Visit (unrecogniz ed section and content) Reason Comments External Referrals/resources Specialty Diagnoses / Procedures Referred By Contac t Referred To Contact Diagnoses Left knee pain, unspecified chronicity Procedures XR BONE LENGTH STUDY Norman Braga MD [address] [place] [address] Referral ID Status Reason Start Date Expiration Date V isits Requested Visits Authorized [id number] Pending Review 06/18/2023 07/12/2024 1 1 Reason Comments Pain Reason Onset Date Comments Santyl 08/22/2023 INFORMATION SOURCE (unrecogn ized section and content) DATE CREATED AUTHOR 03/12/2021 [facility] DATE CREATED AUTHOR AUTHOR'S ORGANIZ ATION 08/13/2021 [facility] DATE CREATED AUTHOR AUTHOR'S ORGANIZ ATION 09/26/2021 [facility] DATE CREATED AUTHOR AUTHOR'S ORGANIZ ATION 10/20/2022 [facility] DATE CREATED AUTHOR AUTHOR'S ORGANIZ ATION 07/04/2023 [facility] DATE CREATED AUTHOR AUTHOR'S ORGANIZ ATION 08/20/2023 [facility] DATE CREATED AUTHOR AUTHOR'S ORGANIZ ATION 08/22/2023 [facility] DATE CREATED AUTHOR AUTHOR'S ORGANIZ ATION 10/07/2023 [facility] Care Teams (unrecognized sec tion and content) Team Status: Active Member Role Status Dates Tushar Solano JR DO Primary Care Provider Active Team Status: Active Member Role Status Dates Tushar Solano JR DO Primary Care Provider Active Start: August 06, 2023 Rodrick Lorenzo MD Attending Provider, Other Provider Active Start: August 06, 2023 Team Status: Inactive Member Role Status Dates Tushar Solano JR DO Primary Care Provider Active ZAC Renae Attending Provider Active [employer]rink Pit Supervisor Relationship Specialty Start Date End Date Tushar Solano Jr., DO [address] [place] [phone] PCP - General Internal Medicine 05/28/23 Shrink Pit Supervisor Relationship Specialty Start Date End Date Tushar Solano Jr., DO [address] [place] [address] [phone] PCP - General Internal Medicine 05/28/23 Shrink Pit Supervisor Relationship Specialty Start Date End Date Tushar Solano MD [address] [place] [id number] PCP - General Internal Medicine 04/08/23 Shrink Pit Supervisor Relationship Specialty Start Date End Date Tushar Solano MD [address] [place] [phone] PCP - General Internal Medicine 04/08/23 Shrink Pit Supervisor Relationship Specialty Start Date End Date Tushar Solano MD [address] [place] [address] [phone] PCP - General Internal Medicine 04/08/23 Shrink Pit Supervisor Relationship Specialty Start Date End Date Tushar Solano Jr., [address] [place] [address] [phone] PCP - General Internal Medicine 05/24/16 Goals (unrecognized section and content) Goals may be documented in a n alternate section FOR RECORDS PERTAINING TO PATIENTS WHO ARE OR HAVE BEEN ENROLLED IN A CHEMICAL DEPENDENCY/SUBSTANCEABUSE PROGRAM, SOME INFORMATION MAY BE OMITTED. This clinical summary was aggregated from multiple sources. Caution should be exercised in using it in the provision of clinical care. This summary normalizes information from multiple sources, and as a consequence, information in this document may materially change the coding, format and clinical context of patient data. In addition, data may be omitted in some cases. CLINICAL DECISIONS SHOULD BE BASED ON THE PRIMARY CLINICAL RECORDS. [employer] provides no warranty or guarantee of the accuracy or completeness of information in this document.
[2023-10-12 17:03] LABS: Potassium 2.1 mmol/L (3.5-5.1)
[2023-10-12 17:14] LABS: Lactate/Lactic Acid 1.7 mmol/L (0.4-2.0)
[2023-10-12] MEDS: POTASSIUM BICARBONATE/CIT 25 MEQ TABLET EFF 50 MEQ PO (17:17)
[2023-10-12] MEDS: ASPIRIN 81 MG TAB.CHEW 162 MG PO (17:17)
[2023-10-12] MEDS: POTASSIUM CHLORIDE IN 0.9%NACL 1,000 ML 250 MEQ IV (17:34)
[2023-10-12] MEDS: LEVOFLOXACIN IN DEXTROSE 5 % 750 MG/150 ML IV.SOLN 100 MG IV (17:34)
[2023-10-12] MEDS: HEPARIN SODIUM,PORCINE/D5W 25,000 UNIT/500 ML IV.SOLN 15.5999999999999996 UNIT IV (17:39)
[2023-10-12 17:50] LABS: pH VBG 7.515 (7.330-7.430)
[2023-10-12 17:51] LABS: PCO2 VBG 42.7 mmHg (40.0-52.0)
[2023-10-12 18:14] LABS: Internal Control Within Normal Limits; Respiratory Syncytial Virus Not Detected (NOT DETECTE)
[2023-10-12 20:10] LABS: Potassium 2.9 mmol/L (3.5-5.1); Troponin I High Sensitivity 26709.4 pg/mL (4.0-51.3)
== END 2023-10-12 21:15 | disposition short-term general hospital (02) ==
PROVIDERS: Physician Assistant; Emergency Provider Emergency Medicine
DX: I21.4 Non-ST elevation (NSTEMI) myocardial infarction (principal); I50.9 Heart failure, unspecified; J18.9 Pneumonia, unspecified organism; E87.6 Hypokalemia; I25.10 Atherosclerotic heart disease of native coronary artery without angina pectoris; Z79.02 Long term (current) use of antithrombotics/antiplatelets; Z79.899 Other long term (current) drug therapy; Z79.890 Hormone replacement therapy; Z87.891 Personal history of nicotine dependence; Z20.822 Contact with and (suspected) exposure to COVID-19
CPT/HCPCS: 36415; 71046; 80053; 82800; 83605; 83880; 84132; 84484; 85025; 87040; 87420; 87804; 87811; 93005; 94640; 96365; 96366; 96375; 99285; J2930

== ENCOUNTER 2023-11-04 01:00 | Inpatient (IN) | payer MEDICARE, SELFPAY ==
[2023-11-04] VITALS (23 sets, daily range): BP systolic 95–114; BP diastolic 60–74; PULSE 82–110; TEMP 36.6–37.2; O2SAT 92–100; BMI 24.3; BMI 23.9
--- NOTE | 2023-11-04 01:06 | XR_ITS ---
The [address] [address] Patient Name: ASHVIN RENE MRN: [id number] date: 1955 Sex: F Assigned Patient Location: ER Current Patient Location: ER Accession/Order Number: [id number] Exam Date: 11/04/2023 01:15 Report Date: 11/04/2023 01:52 At the request of: SHANTI RAINEY Procedure: XR hip LT 2V w/ pelvis EXAM: XR hip LT 2V w/ pelvis HISTORY: fall COMPARISON: None. TECHNIQUE: 3 views of the left pelvis FINDINGS: Left dynamic hip screw is noted. Bones appear intact with anatomic alignment. There are degenerative changes of the joints. Prominent vascular calcifications are noted. XR/XR hip LT 2V w/ pelvis IMPRESSION: No acute osseous abnormality of the left hip. Electronically authenticated by: DAKOTAH VERDUGO Date: 11/04/2023 01:52
--- NOTE | 2023-11-04 01:06 | CT_ITS ---
[address] [address] Patient Name: ASHVIN RENE MRN: [id number] date: 1955 Sex: F Assigned Patient Location: ER Current Patient Location: ER Accession/Order Number: [id number] Exam Date: 11/04/2023 01:15 Report Date: 11/04/2023 02:06 At the request of: SHANTI RAIENY Procedure: CT cervical spine wo con EXAMINATION: CT cervical spine wo con 11/04/2023 1:15 AM EDT HISTORY: fall COMPARISON: 04/09/2021 TECHNIQUE: Axial CT scans through the cervical spine were obtained without contrast administration. Sagittal and coronal reconstruction images were obtained. Dose reduction techniques were achieved by using automated exposure control and/or adjustment of mA and/or kV according to patient size and/or use of iterative reconstruction technique. FINDINGS: No fracture or dislocation is shown. There is 2 millimeters of retrolisthesis at C5-C6 with moderate disc space narrowing seen at C5-C6 and C6-C7. No evidence of high-grade foraminal or spinal stenosis. The prevertebral soft tissue space appears normal. Visualized neck shows no adenopathy. Visualized lung apices are clear. CT/CT cervical spine wo con IMPRESSION: No fracture or dislocation. TECHNIQUE: FINDINGS: IMPRESSION: Electronically authenticated by: DAKOTAH VERDUGO Date: 11/04/2023 02:06
--- NOTE | 2023-11-04 01:06 | CT_ITS ---
The [address] [address] Patient Name: ASHVIN RENE MRN: [id number] date: 1955 Sex: F Assigned Patient Location: ER Current Patient Location: ER Accession/Order Number: [id number] Exam Date: 11/04/2023 01:15 Report Date: 11/04/2023 02:03 At the request of: SHANTI RAINEY Procedure: CT head/brain wo con EXAM: CT head/brain wo con HISTORY: fall COMPARISON: 02/16/2023 TECHNIQUE: CT of the head without intravenous contrast. Dose reduction techniques were achieved by using automated exposure control and/or adjustment of mA and/or kV according to patient size and/or use of iterative reconstruction technique. . FINDINGS: The brain parenchyma density is unremarkable. There are mild periventricular and white matter hypodensities likely representing chronic microvascular ischemic changes. There is no acute intracranial hemorrhage, extra axial fluid collection, midline shift, or mass effect. There is no evidence to suggest acute infarction. Mild prominence of the cerebral sulci and ventricles. No hydrocephalus. There are atherosclerotic calcifications within the carotid siphons and intracranial vertebral arteries. Air-fluid level is seen within the right maxillary sinus with suggestion of cortical irregularity of the lamina papyracea. There are no suspicious osseous lytic or sclerotic lesions. Small posterior scalp hematoma near the vertex. CT/CT head/brain wo con IMPRESSION: No acute intracranial process. Air-fluid level is seen within the right maxillary sinus with suggestion of cortical irregularity of the right lamina papyracea turning for fracture. Maxillofacial CT can be considered for further evaluation as clinically warranted. Electronically authenticated by: DAKOTAH VERDUGO Date: 11/04/2023 02:03
--- NOTE | 2023-11-04 01:07 | ED.FALL1 ---
HPI HPI - Fall General Chief Complaint: Fall Stated Complaint: FALL HIP PAIN Time Seen by Provider: 11/04/23 01:06 Source: patient Mode of arrival: ambulance Limitations: no limitations History of Present Illness HPI Narrative: 67-year-old female presented for left hip pain. About 7 hours ago she fell in her yard when she stepped into a hole and lost her balance. She has not walked since this happened. Somebody was able to help her get into the house and then paramedics eventually brought her. She also hit the back of her head and has a hematoma. She has a little bit of neck pain as well on the left side. No chest pain or shortness of breath or abdominal pain. Related Data Home Medications ?Medication ?Instructions ?Recorded ?Confirmed clopidogrel 75 mg tablet 75 mg PO DAILY 10/12/23 11/04/23 duloxetine 30 mg capsule,delayed 30 mg PO DAILY 10/12/23 11/04/23 release famotidine 40 mg tablet 40 mg PO DAILY 10/12/23 11/04/23 fludrocortisone 0.1 mg tablet 0.05 mg PO DAILY 10/12/23 11/04/23 liothyronine 5 mcg tablet 5 mcg PO DAILY 10/12/23 11/04/23 midodrine 10 mg tablet 10 mg PO TID 10/12/23 11/04/23 montelukast 10 mg tablet 10 mg PO DAILY 10/12/23 11/04/23 pantoprazole 40 mg tablet,delayed 40 mg PO DAILY 10/12/23 11/04/23 release pregabalin 50 mg capsule 50 mg PO BID 10/12/23 11/04/23 ranolazine 1,000 mg 1,000 mg PO Q12H 10/12/23 11/04/23 tablet,extended release,12 hr rosuvastatin 20 mg tablet 20 mg PO DAILY 10/12/23 11/04/23 sucralfate 1 gram tablet 1 g PO BID 10/12/23 11/04/23 trazodone 150 mg tablet 150 mg PO BEDTIME 10/12/23 11/04/23 Previous Rx's ?Medication ?Instructions ?Recorded nabumetone 750 mg tablet 750 mg PO BID PRN pain #20 tabs 01/18/23 Allergies Allergy/AdvReac Type Severity Reaction Status Date / Time No Known Drug Allergies Allergy Verified 11/04/23 01:07 Opioid HPI Opioid Management Most Recent Pain and Opioid Data: Last Pain Scale 10 11/04/23 01:50 Last ED Pain Assessment 11/04/23 02:21 Last MAR Pain Assessment 11/04/23 01:50 Review of Systems ROS Narrative A ten point review of systems is negative except as noted above. PFSH PFSH Social History Smoking status: Former smoker Exam Narrative Exam Narrative: Nurses note and vital signs reviewed and patient is not hypoxic. General: The patient appears in no apparent distress. Skin: Warm, dry, no pallor noted. There is no rash noted. Head: Normocephalic, posterior hematoma present Eye: Normal conjunctiva, no drainage Ears, Nose, Mouth, and Throat: oral mucosa is moist. Nares patent. Cardiovascular: Regular Rate and Rhythm Respiratory: Patient is in no distress, no accessory muscle use, lungs are clear to auscultation, no wheezing, rales or rhonchi Back: non-tender GI: Soft and nontender Musculoskeletal: She does not have leg shortening but has tenderness in the left hip Neurological: A&O, normal speech Psychiatric: Cooperative Constitutional Vital Signs, click to edit/add: Last Vital Signs Temp 98 F 11/04/23 01:00 Pulse 103 H 11/04/23 01:00 Resp 18 11/04/23 01:00 BP 114/74 11/04/23 01:00 Pulse Ox 100 11/04/23 01:00 O2 Del Method Room Air 11/04/23 01:00 Course Vital Signs Vital signs: Vital Signs Temperature 98 F 11/04/23 01:00 Pulse Rate 103 H 11/04/23 01:00 Respiratory Rate 18 11/04/23 01:00 Blood Pressure 114/74 11/04/23 01:00 Pulse Oximetry 100 11/04/23 01:00 Oxygen Delivery Method Room Air 11/04/23 01:00 Temperature 98 F 11/04/23 01:00 Pulse Rate 103 H 11/04/23 01:00 Respiratory Rate 18 11/04/23 01:00 Blood Pressure 114/74 11/04/23 01:00 Pulse Oximetry 100 11/04/23 01:00 Oxygen Delivery Method Room Air 11/04/23 01:00 MDM - Fall MDM Narrative Medical decision making narrative: Pelvic fracture and sacral fracture identified on CT scan and she is being admitted. Findings were discussed with the patient. Differential Diagnosis Differential diagnosis: Likely other (Hip fracture, pelvic fracture, contusions) Imaging Data Hip x-ray: Radiologist's impression: ITS Impressions Cervical Spine CT 11/04/23 01:06 IMPRESSION: No fracture or dislocation. TECHNIQUE: FINDINGS: IMPRESSION: Electronically authenticated by: DAKOTAH VERDUGO Date: 11/04/2023 02:[address] 11/04/23 01:06 IMPRESSION: No acute intracranial process. Air-fluid level is seen within the right maxillary sinus with suggestion of cortical irregularity of the right lamina papyracea turning for fracture. Maxillofacial CT can be considered for further evaluation as clinically warranted. Electronically authenticated by: DAKOTAH VERDUGO Date: 11/04/2023 02:03 Hip/Pelvis X-Ray 11/04/23 01:06 IMPRESSION: No acute osseous abnormality of the left hip. Electronically authenticated by: DAKOTAH VERDUGO Date: 11/04/2023 01:[address] 11/04/23 02:04 IMPRESSION: Acute comminuted minimally displaced fractures at the left superior and inferior pubic rami with cortical offset of less than 3 mm. Given the proximity of the fractures to the urinary bladder, recommend close clinical attention for any signs and symptoms of urinary bladder injury. Partially visualized nondisplaced fracture at the left sacral ala located lateral to the left sacral foramen. Electronically authenticated by: BRENT FLETCHER Date: 11/04/2023 02:46 Discharge Plan Discharge Chief Complaint: Fall Clinical Impression: Closed sacral fracture, Pelvic fracture Patient Disposition: Admitted As Inpatient Time of Disposition Decision: 02:58 Condition: Good
[2023-11-04] MEDS: MORPHINE SULFATE 4 MG/ML VIAL IV (01:50)
--- NOTE | 2023-11-04 02:04 | CT_ITS ---
The [address] [address] Patient Name: ASHVIN RENE MRN: [id number] date: 1955 Sex: F Assigned Patient Location: ER Current Patient Location: ER Accession/Order Number: [id number] Exam Date: 11/04/2023 02:10 Report Date: 11/04/2023 02:46 At the request of: SHANTI RAINEY Procedure: CT hip LT wo con EXAM: CT hip LT wo con HISTORY: fall injury, left hip pain. COMPARISON: Left Pelvic x-ray 11/04/2023 TECHNIQUE: Multiple axial views CT left hip without IV contrast. Coronal sagittal reformats performed. FINDINGS: Acute comminuted minimally displaced fractures at the left superior and inferior pubic rami. Cortical offset of less than 3 mm. Fracture lines extend toward the left pubic bone. No dislocation at the left hip joint. These findings are better seen by current CT and is difficult to visualize by prior radiograph given the diffuse bony demineralization. Partially seen nondisplaced fracture at the left sacral ala located lateral to the sacral foramen. Left femoral internal fixation device is in unremarkable alignment. Diffuse vascular calcifications of the visualized left femoral and pelvic arterial vasculature. CT/CT hip LT wo con IMPRESSION: Acute comminuted minimally displaced fractures at the left superior and inferior pubic rami with cortical offset of less than 3 mm. Given the proximity of the fractures to the urinary bladder, recommend close clinical attention for any signs and symptoms of urinary bladder injury. Partially visualized nondisplaced fracture at the left sacral ala located lateral to the left sacral foramen. Electronically authenticated by: BRENT FLETCHER Date: 11/04/2023 02:46
--- OUTSIDE RECORDS SUMMARY | 2023-11-04 02:08 | XMS_ITS | CCD ---
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 Primary Care Provider Ana CristinaWaqas yancey Hattie Unavailable Antonio Kim Unavailable [phone] Virginia Marti Unavailable JR Tushar Solano Primary Care Provider [phone] ZAC Marti Attending Provider RUSS, DR DE Primary Care Unavailable VALONE, DR DE Consulting Unavailable VALONE, DR DE Attending Unavailable VALONE, DR DE Admitting Unavailable VALONE, DR DE Primary Care Unavailable VALONE, DR DE Consulting Unavailable VALONE, DR DE Attending Unavailable VALONE, DR DE Admitting Unavailable VALONE, DR DE Primary Care Unavailable VALONE, DR DE Consulting Unavailable VALONE, DR DE Attending Unavailable VALONE, DR DE Admitting Unavailable GRAND ISLE, DR YARY Burleson Consulting Unavailable Russ Dewey, Tushar VILLELA Primary Care Provider NORMAN BRAGA Referring Unavailable TUSHAR SOLANO JR. Primary Care Unavailabl e NORMAN BRAGA Attending Unavailable SELF, SELF Referring Unavailable NORMAN BRAGA Attending Unavailable TUSHAR SOLANO JR. Primary Care UnavailJolie Calloway Unavailable Tushar Solano Primary Care Unavailable Rodrick Lorenzo Attending Unavailable Rodrick Lorenzo Admitting Unavailable DWAIN MILLS Attending Unavailable DWAIN MILLS Attending Unavailable DWAIN MILLS Attending Unavailable Tushar Solano MD Primary Care Provider Russ Dewey DO, Charles L Primary Care Provider JONATHAN PIZARRO Admitting Unavailable JONATHAN PIZARRO Attending Unavailable SMITHA WILDE Referring Unavailable VALONE JR, TUSHAR L Primary Care Unavailable VALONE JR, TUSHAR L Referring Unavailable VALONE JR, TUSHAR L Primary Care Unavailable GENET SMALL Attending Unavailable MARIAMA VERAS Referring Unavailable VALONE JR, TUSHAR L Primary Care Unavailable MARIAMA INGRAM Attending Unavailable RUSS JR TUSAHR L Referring Unavailable VALONE JR, TUSHAR L Primary Care Unavailable Unavailable Unavailable Unavailable Allergies Allergy Classification Reported Allergen(s) Allergy Type Date of Onset Reaction(s) Facility (13 sources) atorvastatin; Translations: [atorvastatin] Drug Allergy 06-18-20 16 Hives, [facility] (12 sources) Cefadroxil; Translations: [cefadroxil] Drug Allergy 06-18-20 16 [facility] (14 sources) Codeine; Translations: [Codeine] Drug Allergy 10-12-19 15 Hives, Hallucinations [facility] (3 sources) Dipyridamole; Translations: [dipyridamole] Drug Allergy 05-30-20 21 Unknown Reaction [facility] (6 sources) Fenofibrate; Translations: [fenofibrate] Drug Allergy 06-18-20 16 Other [facility] (12 sources) fluvoxaMINE; Translations: [fluvoxamine] Drug Allergy 06-18-20 16 [facility] (12 sources) nefazodone; Translations: [nefazodone] Drug Allergy 06-18-20 16 [facility] (12 sources) Niacin; Translations: [niacin] Drug Allergy 06-18-20 16 [facility] (6 sources) Simvastatin; Translations: [simvastatin] Drug Allergy 05-30-20 21 [facility] (1 source) Aspirin / Dipyridamole Drug Allergy 07-14-19 13 [facility] (1 source) Cefadroxil Drug Allergy 10-12-19 15 [facility] (1 source) Dextroamphetamine Drug Allergy 10-12-19 15 [facility] (1 source) Fenofibrate Drug Allergy 10-12-19 15 [facility] (1 source) fluvoxaMINE Drug Allergy 10-12-19 15 [facility] (1 source) nefazodone Drug Allergy 10-12-19 15 [facility] (1 source) Niacin Drug Allergy 10-12-19 15 [facility] (1 source) Simvastatin Drug Allergy 10-12-19 15 [facility] (3 sources) Aspirin / Dipyridamole Drug Allergy 04-08-20 23 Other [facility] Work Phone: (3 sources) Fluconazole Allergy to substance 04-08-20 23 Rash [facility] (3 sources) Aspirin / Dipyridamole; Translations: [ASPIRIN-DIPYRIDAMOL E] Drug Allergy 06-18-20 16 [facility] Work Phone: (6 sources) Fenofibrate; Translations: [FENOFIBRATE MICRONIZED] Drug Allergy 06-18-20 16 [facility] (4 sources) Metoprolol; Translations: [METOPROLOL] Drug Allergy 09-09-19 24 Other (See Comments) [facility] Medications Current Medications Medication Drug Class(es) Dates Sig (Normalized) Sig (Original) acarbose 100 mg oral tablet (2 sources) alpha-Glucosidase Inhibitor Acarbose 100 MG as directed Orally Active ascorbic acid 1000 mg oral tablet (8 sources) Vitamin C take 1 tablet by mouth in the morning ascorbic acid, vitamin C, (VITAMIN C) 1000 mg tablet Take 1 tablet (1,000 mg total) by mouth in the morning. 0 Active Vitamin C Active azelastine hydrochloride 0.5 mg/ml ophthalmic solution (4 sources) Histamine-1 Receptor Antagonist take 1 drop(s) into the eye(s) in the morning azelastine (OPTIVAR) 0.05 % ophthalmic solution 1 drop in the morning and 1 drop before bedtime. 0 Active bisoprolol fumarate 5 mg oral tablet (3 sources) beta-Adrenergic [place] Start: take 1 tablet by mouth in the morning bisoprolol (ZEBETA) 5 mg tablet Take 1 tablet (5 mg total) by mouth in the morning. 90 tablet 2 10/16/2023 Active Start: 10-16-2023 take 1 tablet by shaun th in the morning bisoprolol (ZEBETA) 5 mg tablet Take 1 tablet (5 mg total) by mouth in the morning. 90 tablet 2 10/16/2023 Start: 10-14-2023 End: 10-15-2023 bisoprolol (ZEBETA) tablet 5 mg Calcium (1 source) Phosphate Binder, Calcium Calcium Active calcium citrate 1040 mg oral tablet (10 sources) Start: 08-06-2023 take 250 mg by mouth once daily Calcium Citrate Active 250 MG PO Daily August 06, 2023 12:00am Start: 11-25-2022 take 2 tablets by mo [facility] once daily calcium citrate 250 mg [...] Active cholecalciferol 0.125 mg disintegrating oral tablet (12 sources) Vitamin D Start: 08-06-2021 cholecalciferol, vitamin D3, 125 mcg (5,000 unit) tablet,disintegr ating 125 mcg daily. 0 08/06/2021 Active Start: 08-10-2019 take 1 tablet by [facility] once daily Cholecalciferol (Vitamin D3) (Vitamin D3) 2,000 unit Tablet Active 2000 UNIT PO Daily August 10, 2019 12:00am cholecalciferol (Vitamin D-3) 25 MCG tablet Take 12.5 mcg by mouth in the morning and 12.5 mcg in the evening and 12.5 mcg before bedtime. 0 Active take 1 tablet by [facility] once daily cholecalciferol 25 MCG (1000 UNIT) tablet Take 1 tablet by mouth daily. 0 Active collagenase 0.25 unt/mg topical ointment (5 sources) Collagen-specific Enzyme Start: 10-16-2023 colla genase (SANTYL) ointment Apply 1 Application topically in the morning. 15 g 0 10/16/2023 Active Start: 10-16-2023 collagenase (S ANTYL) ointment Apply 1 Application topically in the morning. 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 60 tablet 2 10/16/2023 Active Start: 10-16-2023 take 1 tablet by shaun th in the morning dapagliflozin propanediol (FARXIGA) 10 mg tablet Take 1 tablet (10 mg total) by mouth in the morning. 60 tablet 2 10/16/2023 Start: 10-15-2023 End: 10-15-2023 dapagliflozin propanediol (F ARXIGA) tablet 10 mg dextran 70 1 mg/ml / glycerin 2 mg/ml / hypromellose 3 mg/ml ophthalmic solution (3 sources) Plasma Volume Steno Typist, Non-Standardized Chemical Allergen Artificial Tear Solution (Soothe XP) solution Administer 1 application into affected eye(s) in the morning and 1 application at noon and 1 application in the evening and 1 application before bedtime. 0 Active doxycycline monohydrate 100 mg oral capsule (2 sources) Tetracycline-class Drug Start: 08-19-19 24 take 1 capsule by mouth in the morning doxycycline (Monodox) 100 MG capsule Take 100 mg by mouth in the morning and 100 mg before bedtime. 0 08/19/2023 Active DULoxetine 60 mg delayed release oral capsule (15 sources) Serotonin and Norepinephrine Reuptake Inhibitor Start: 08-10-19 20 take 30 mg by mouth once daily at bedtime Duloxetine Active 30 MG PO Daily at bedtime August 10, 2019 12:00am Start: 08-10-2019 take 60 mg by mouth once daily at bedtime Duloxetine Active 60 MG Oral Daily at bedtime August 10, 2019 1:38pm take 1 capsule by mo ut in the morning DULoxetine (CYMBALTA) 30 mg capsule Take 1 capsule (30 mg total) by mouth in the morning. 0 Active DULoxetine HCl A ctive ergocalciferol 1.25 mg oral capsule (2 sources) Provitamin D2 Compound take 1 capsule by mouth every week Ergocalciferol 1.25 MG (52143 UT) capsule Take 1 capsule by mouth once a week. 0 Active famotidine 20 mg oral tablet (15 sources) Histamine-2 Receptor Antagonist Start: 08-10-19 20 [...] Active ferrous sulfate 325 mg oral tablet (9 sources) take 1 tablet by shaun th [...] 0.1 mg oral tablet (8 sources) Start: 020 take 0.1 mg by mouth once daily at lunch Fludrocortisone Active 0.1 MG PO Daily with lunch August 10, 2019 12:00am GENERIC COMPOUNDING MEDICATION (3 sources) GENERIC COMPOUND ING MEDICATION Apply topically 3 (three) times a day NIFED PHN 0 Active Ibadronate (1 source) Ibandronate Sodi um Active ibandronic acid 150 mg oral tablet (9 sources) Bisphosphonate take 1 tablet by mouth every 30 days in the morning ibandronate (BONIVA) 150 mg tablet Take 1 tablet (150 mg total) by mouth every 30 (thirty) days. Take in AM with glass of water prior to food, don't lie down for 60 minutes. 0 Active ipratropium bromide 0.021 mg/actuat metered dose nasal spray (4 sources) Anticholinergic Start: 023 ipratropium (ATROVENT) 21 mcg (0.03 %) nasal spray as needed. 0 11/13/2022 Active Iron (8 sources) Start: 020 take 1 tablet by mouth once daily Iron Active 1 TAB Oral Daily August 10, 2019 1:38pm Start: 08-10-2019 take 1 tablet by mouth once da dominick Iron Active 1 TAB PO Daily August 10, 2019 12:00am Iron Active liothyronine sodium 0.005 mg oral tablet (11 sources) l-Triiodothyronine Start: 08-06-2023 take 10 ug [...] 1 tablet Orally Once a day Active montelukast 10 mg oral tablet (11 sources) Leukotriene Receptor Antagonist Start: 3 take 1 tablet by mouth in the morning montelukast (SINGULAIR) 10 mg tablet Take 1 tablet (10 mg total) by mouth in the morning. 0 11/14/2022 Active Montelukast Sodi um Active Multiple Vitamin (multivitamin) [...] in the morning. 0 Active multivitamin (THERAGRAN) tab let (4 sources) take 1 tablet by mouth in the morning multivitamin (THERAGRAN) tablet Take 1 tablet by mouth in the morning. 0 take 1 tablet by mouth in the mo rning multivitamin (THERAGRAN) tablet Take 1 tablet by mouth in the morning. 0 Active Multivitamin preparation (1 source) Multivitamin Act pool Nitro Sublingual 0.4 (1 source) Nitro Sublingual 0.4 Active Nurtec (1 source) Nurtec Active omeprazole 40 mg delayed release oral capsule (7 sources) Proton Pump Inhibitor Start: 4 take 40 mg by mouth once daily Omeprazole Active 40 MG PO Daily August 06, 2023 12:00am Omeprazole Activ e ondansetron 4 mg disintegrating oral tablet (12 sources) Serotonin-3 Receptor Antagonist Start: 05-27-2020 take [...] pantoprazole 40 mg delayed release oral tablet (4 sources) Proton Pump Inhibitor take 1 tablet by mouth before breakfast pantoprazole (PROTONIX) 40 mg EC tablet Take 1 tablet (40 mg total) by mouth in the morning. 30 MINS BEFORE BREAKFAST. 0 Active pregabalin 50 mg oral capsule (11 sources) Start: 3 take 1 capsule by mouth in the morning, then take 1 capsule by mouth at bedtime pregabalin (LYRICA) 50 mg capsule Take 1 capsule (50 mg total) by mouth in the morning and 1 capsule (50 mg total) before bedtime. 0 12/07/2022 Active Pregabalin Activ e take 1 capsule by mo uth three times daily Pregabalin 50 MG capsule Take 1 capsule by mouth 3 times daily. 0 Active rimegepant 75 mg disintegrating oral tablet (10 sources) Start: 08-06-2023 take 1 tablet by mouth every other day Rimegepant (Nurtec Odt) 75 mg tablet,disintegrating Active 75 MG PO Q2D August 06, 2023 12:00am take 1 tablet by mouth once Rime gepant Sulfate (Nurtec) 75 MG tablet dispersible Take 75 mg by mouth 1 (one) time if needed (take as directed). 0 Active sacubitril 24 mg / valsartan 26 mg oral tablet (3 sources) Angiotensin 2 Receptor [place]iena Start: 10-16-2023 take 1 tablet by mouth in the morning sacubitriL-valsartan (ENTRESTO) 24-26 mg tablet Take 1 tablet by mouth in the morning and 1 tablet before bedtime. 60 tablet 2 10/16/2023 Active Start: 10-16-2023 take 1 tablet by shaun th in the morning sacubitriL-valsartan (ENTRESTO) 24-26 mg tablet Take 1 tablet by mouth in the morning and 1 tablet before bedtime. 60 tablet 2 10/16/2023 Start: 10-16-2023 End: 10-15-2023 sacubitriL-valsartan (ENTRES TO) 24-26 mg per tablet 1 tablet spironolactone 25 mg oral tablet (3 sources) Aldosterone Antagonist Start: 10-16-2023 take 1 tablet by mouth in the morning spironolactone (ALDACTONE) 25 mg tablet Take 1 tablet (25 mg total) by mouth in the morning. 60 tablet 2 10/16/2023 Active Start: 10-16-2023 take 1 tablet by shaun th in the morning spironolactone (ALDACTONE) 25 mg tablet Take 1 tablet (25 mg total) by mouth in the morning. 60 tablet 2 10/16/2023 Start: 10-13-2023 End: 10-15-2023 spironolactone (ALDACTONE) t ablet 25 mg sucralfate 1000 mg oral tablet (15 sources) Aluminum Complex Start: 08-06-2021 take 1 tablet by mouth at bedtime sucralfate (CARAFATE) 1 gram tablet Take 1 tablet (1 g total) by mouth in the morning and at bedtime. 0 08/06/2021 Active take 1 tablet by mouth every [...] tid Active torsemide 20 mg oral tablet (11 sources) Loop Diuretic Start: 08-06-2023 take 20 mg by mouth once daily Torsemide Active 20 MG PO Daily August 06, 2023 12:00am Demadex Active Torsemide (DEMAD EX PO) Take by mouth. 0 Active traZODone hydrochloride 150 mg oral tablet (17 sources) Serotonin Reuptake Inhibitor Start: 08-10-2019 take 150 mg by mouth once daily at bedtime Trazodone Active 150 MG PO Daily at bedtime August 10, 2019 12:00am take 1 tablet by mouth at bedtim e traZODone 50 MG tablet Take 1 tablet by mouth At bedtime. 0 Active vitamin b12 1 mg oral tablet (10 sources) Vitamin B12 take 1 tablet by [...] Drug Class(es) Dates Sig (Normalized) Sig (Original) acetaminophen 325 mg oral tablet (7 sources) Start: 10-13-2023 End: 10-15-2023 take 1 tablet by mouth every four hours as needed for pain and headache acetaminophen (TYLENOL) tablet 650 mg take 1 tablet by shaun th every eight hours as needed acetaminophen (Tylenol) 500 MG tablet Ta ke 500 mg by mouth every 8 (eight) hours if needed. 0 Active take 1 tablet by shaun th every six hours as needed acetaminophen 500 MG tablet Take 1 table t by mouth every 6 hours as needed for Mild Pain. 0 Active Amylases / Endopeptidases / Lipase (3 sources) Zenpep Not-Takin g/PRN Zenpep Active aspirin 81 mg chewable tablet (15 sources) Platelet Aggregation Inhibitor, Nonsteroidal Anti-inflammatory Drug Start: 02-16-2023 End: 10-15-2023 take 81 mg by mouth once daily 81 mg, oral, Daily, First dose on Fri10/13/23 at 0900 take 1 tablet by mouth in the mo rning aspirin 81 MG EC tablet Take 81 mg by mouth in the morning. 0 Active BABY ASPIRIN PO Take by mouth. 0 Active calcium carbonate 1500 mg oral tablet (7 sources) Start: 08-10-2019 End: 08-06-2023 take 1 tablet by mouth once daily Calcium Carbonate (Calcium 600) 600 mg calcium (1,500 mg) Tablet Discontinued 600 MG PO Daily August 10, 2019 12:00am August 06, 2023 11:28am take 500 mg by mouth once daily calcium carbonate (CALCIUM 500 ORAL) Take 500 mg by mouth daily. 0 Active Calcium Gluconate (1 source) Start: 10-12-2023 End: 10-15-2023 calcium gluconate IVPB 1000 mg/50 mL (20 mg/mL premix) clopidogrel 75 mg oral tablet (16 sources) P2Y12 Platelet Inhibitor Start: 08-10-2019 End: 10-15-2023 take 75 mg by mouth once daily 75 mg, oral, Daily, First dose on Fri10/13/23 at 0900, Look-alike/sound-a like medication - verify indication for use. Clopidogrel Bisu lfate Active 4 ml furosemide 10 mg/ml injection (2 sources) Loop Diuretic Start: 10-13-2023 End: 10-14-2023 take 40 mg intravenously every twelve hours furosemide (LASIX) injection 40 mg Start: 10-13-2023 End: 10-13-2023 furosemide (LASIX) tablet 40 mg glucagon (rdna) 1 mg injection (1 source) Antihypoglycemic Agent Start: 10-12-2023 End: 10-15-2023 glucagon HCL injection 1 mg 150 ml glucose 50 mg/ml injection (3 sources) Start: 10-12-2023 End: 10-15-2023 dextrose 50 % in water (D50W) 50% solution 25 mL Start: 10-12-2023 End: 10-15-2023 dextrose 5 % (D5W) infusion Start: 10-12-2023 End: 10-15-2023 dextrose (GLUTOSE) 40 % gel 15 g 500 ml heparin sodium, porcine 50 unt/ml injection (1 source) Unfractionated Heparin, Anti-coagulant Start: 10-13-2023 End: 10-14-2023 heparin infusion 19595 units/500 mL in 0.45% NaCl (50 units/mL premix) lansoprazole 30 mg delayed release oral capsule (3 sources) Proton Pump Inhibitor Start: 08-10-2019 End: 08-06-2023 take 30 mg by mouth once daily in the morning Lansoprazole Discontinued 30 MG PO Every morning August 10, 2019 12:00am August 06, 2023 11:31am magnesium sulfate IVPB 2000 mg/50 mL in iso-osmotic water (40 mg/mL premix) (1 source) Start: 10-12-2023 End: 10-15-2023 magnesium sulfate IVPB 2000 mg/50 mL in iso-osmotic water (40 mg/mL premix) 24 hr metoprolol succinate 25 mg extended release oral tablet (10 sources) beta-Adrenergic [place] Start: 03-19-2023 End: 10-15-2023 metoprolol succinate XL (TOPROL XL) 24 hr tablet 25 mg take 1 tablet by shaun th every [...] 2 times daily. 0 Active midodrine hydrochloride 5 mg oral tablet (16 sources) alpha-Adrenergic Agonist Start: 10-13-2023 End: 10-15-2023 take 1 tablet by mouth every eight hours as needed 5 mg, oral, Every 8 hours PRN, SBP <100, Starting on Fri10/13/23 at 0014, Look-alike/sound-alike medication - verify indication for use. Start: 08-10-2019 take 10 mg by mouth [...] and 10 mg before bedtime. 0 Active naproxen 500 mg oral tablet (3 sources) Nonsteroidal Anti-inflammatory Drug Start: 08-10-2019 End: 08-06-2023 take 500 mg by mouth twice daily Naproxen Discontinued 500 MG PO Twice daily August 10, 2019 12:00am August 06, 2023 11:31am nitroglycerin 0.4 mg sublingual tablet (10 sources) Nitrate Vasodilator Start: 02-16-2023 End: 10-15-2023 nitroglycerin (NITROSTAT) disintegrating tablet 0.4 mg apply 1 dose transde rmal route once daily, then apply 1 dose transdermal route every twenty-four hours nitroGLYCERIN 0.4 MG/HR Patch [address] 1 patch on skin daily. Remove 10-12 hr/day 0 Active perflutren lipid microsphere s (DEFINITY) dilution injection 1.43 mg/10 mL (1 source) Start: 10-13-2023 End: 10-13-2023 perflutren lipid microsphere s (DEFINITY) dilution injection 1.43 mg/10 mL microencapsulated potassium chloride 10 meq extended release oral tablet (2 sources) Start: 10-13-2023 End: 10-13-2023 potassium chloride (K-TAB,KLOR-CON) CR tablet 60 mEq Start: 10-12-2023 End: 10-15-2023 potassium chloride (K-TAB,KL OR-CON) CR tablet 20-50 mEq potassium chloride IVPB 10 mEq/50 mL in water (0.2 mEq/mL premix) (1 source) Start: 10-12-2023 End: 10-15-2023 potassium chloride IVPB 10 mEq/50 mL in water (0.2 mEq/mL premix) predniSONE (1 source) Start: 10-13-2023 End: 10-15-2023 predniSONE (DELTASONE) tablet 50 mg 12 hr ranolazine 500 mg extended release oral tablet (14 sources) Anti-angina l Start: 10-13-2023 End: 10-15-2023 take 1000 mg by mouth twice daily 1,000 mg, oral, 2 times daily, First dose on Fri10/13/23 at 0030, Look-alike/sound-ali ke medication - verify indication for use. Swallow whole-do not crush or chew. Avoid grapefruit products. 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 0 Active rosuvastatin calcium 20 mg oral tablet (20 sources) HMG-CoA Reductase Inhibitor Start: 08-10-2019 End: 10-15-2023 take 20 mg by mouth once daily 20 mg, oral, Daily, First dose on Fri10/13/23 at 0900, Look-alike/sound-alike medication - verify indication for use. Rosuvastatin Sloan cium 20 MG Cap Sprinkle Take by mouth. 0 Active Rosuvastatin Sloan cium Active 125 ml sodium chloride 9 mg/ ml prefilled syringe (6 sources) Start: 10-14-2023 End: 10-15-2023 sodium chloride 0.9 % flush 3 mL Start: 10-12-2023 End: 10-15-2023 sodium chloride 0.9 % infusi on sodium phosphate 20 mmol in sodium chloride 0.9 % 250 mL IVPB (1 source) Start: 10-12-2023 End: 10-15-2023 sodium phosphate 20 mmol in sodium chloride 0.9 % 250 mL IVPB valsartan 40 mg oral tablet (1 source) Angiotensin 2 Receptor [place] Start: 10-14-2023 End: 10-15-2023 valsartan (DIOVAN) tablet 40 mg Problems Active Problems Problem Classification Problem Date Documented Date Episodic/Chronic Acute cerebrovascular disease (2 sources) Cerebrovascular accident; Translations: [Cerebral infarction, unspecified] Onset: 08-21-2023 08-21-2023 Chronic Acute myocardial infarction (4 sources) Myocardial infarction; Translations: [Non-ST elevation (NSTEMI) myocardial infarction] Onset: 10-12-2023 10-15-2023 Chronic Cardiac and circulatory congenital anomalies (6 sources) Bicuspid aortic valve; Translations: [Congenital insufficiency of aortic valve] Onset: 10-10-2021 10-10-2021 Chronic Chronic kidney disease (2 sources) Chronic kidney disease; Translations: [Chronic kidney disease, unspecified] Onset: 08-21-2023 08-21-2023 Chronic Chronic ulcer of skin (1 source) Ischemic ulcer of toe; Translations: [Non-pressure chronic ulcer of other part of right foot with necrosis of muscle] 08-21-2023 Chronic Complication of device; implant or graft (3 sources) Arteriosclerosis of coronary artery bypass graft; Translations: [Atherosclerosis of coronary artery bypass graft(s) without angina pectoris] 03-05-2023 Chronic Conditions associated with dizziness or vertigo (1 source) Dizziness Onset: 10-23-2023 Episodic Conduction disorders (2 sources) Cardiac pacemaker in situ; Translations: [Presence of cardiac pacemaker] Onset: 08-21-2023 08-21-2023 Chronic Congestive heart failure; nonhypertensive (6 sources) Unspecified systolic (congestive) heart failure; Translations: [Unspecified combined systolic (congestive) and diastolic (congestive) heart failure] Onset: 07-21-2022 10-15-2023 Chronic Congestive heart failure; nonhypertensive (1 source) Congestive heart failure; nonhypertensive Onset: 10-13-2023 Coronary atherosclerosis and other heart disease (8 sources) Coronary arteriosclerosis; Translations: [Atherosclerotic heart disease of [place] coronary artery without angina pectoris] Onset: 10-19-2020 03-05-2023 Chronic Coronary atherosclerosis and other heart disease (1 source) Coronary atherosclerosis and other heart disease; Translations: [Atherosclerosis of [place] arteries of right leg with ulceration of other part of foot] Onset: 08-06-2023 Deficiency and other anemia (4 sources) Iron deficiency anemia, unspecified; Translations: [IRON DEFICIENCY ANEMIA UNSPECIFIED] Onset: 10-15-2022 Episodic Diabetes mellitus without complication (4 sources) Type 2 diabetes mellitus without complications; Translations: [TYPE 2 DM WITHOUT COMPLICATIONS] Onset: 07-16-2022 Chronic Disorders of lipid metabolism (5 sources) Hyperlipidemia, unspecified; Translations: [Pure hypercholesterolemia, unspecified] Onset: 10-19-2020 03-05-2023 Chronic Esophageal disorders (3 sources) Ulcerative esophagitis; Translations: [Ulcer of esophagus without bleeding] Chronic Essential hypertension (5 sources) Essential hypertension; Translations: [Essential (primary) hypertension] Onset: 10-19-2020 08-21-2023 Chronic Gangrene (4 sources) Gangrenous disorder; Translations: [Gangrene, not elsewhere classified] Episodic Gastroduodenal ulcer (except hemorrhage) (3 sources) Gastric erosion; Translations: [Gastric ulcer, unspecified as acute or chronic, without hemorrhage or perforation] Chronic Heart valve disorders (3 sources) Aortic incompetence, non-rheumatic ; Translations: [Nonrheumatic aortic (valve) insufficiency] Onset: 01-01-2023 01-01-2023 Chronic Nausea and vomiting (8 sources) Nausea and vomiting; Translations: [Nausea with vomiting, unspecified] Onset: 04-12-2021 Resolved: 04-12-2021 Episodic Nutritional deficiencies (1 source) Vitamin D deficiency, unspecified; Translations: [VITAMIN D DEFICIENCY UNSPECIFIED] Onset: 07-21-2022 Chronic Occlusion or stenosis of precerebral arteries (5 sources) Left carotid artery stenosis; Translations: [Occlusion and stenosis of left carotid artery] Onset: 01-01-2023 10-06-2023 Chronic Open wounds of extremities (2 sources) Laceration without foreign body of right forearm, initial encounter Episodic Other aftercare (1 source) Other intermediate manager (current) drug therapy; Translations: [OTH NURSING HOME CURRENT DRUG THERAPY] Onset: 07-21-2022 Episodic Other circulatory disease (3 sources) History of cardiovascular surgery; Translations: [Presence of other cardiac implants and grafts] Onset: 06-16-2017 07-23-2017 Chronic Other connective tissue disease (2 sources) Pain in right hand Episodic Other connective tissue disease (1 source) Pain of toe of right foot; Translations: [Pain in right toe(s)] 08-21-2023 Episodic Other lower respiratory disease (4 sources) Dyspnea; Translations: [Shortness of breath] Onset: 01-27-2023 01-27-2023 Episodic Other non-traumatic joint disorders (3 sources) Pain in left knee; Translations: [Pain in joint, lower leg] Onset: 06-25-2023 06-18-2023 Episodic Zeenat-; endo-; and myocarditis; cardiomyopathy (except that caused by tuberculosis or sexually transmitted disease) (3 sources) Cardiomyopathy; Translations: [Cardiomyopathy, unspecified] Onset: 01-27-2023 03-05-2023 Chronic Peripheral and visceral atherosclerosis (3 sources) Peripheral vascular disease, unspecified; 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 Residual codes; unclassified (1 source) Other specified health status Episodic Residual codes; unclassified (1 source) Pain, unspecified; Translations: [Pain, unspecified] Onset: 10-13-2023 Episodic Superficial injury; contusion (7 sources) Contusion [...] pain R10.13] Onset: 04-12-2021 Resolved: 04-12-2021 Episodic Coronary atherosclerosis and other heart disease (1 source) Presence of aortocoronary bypass graft; Translations: [Presence of aortocoronary bypass graft] Onset: 03-05-2023 Episodic Mood disorders (1 source) Mood disorders Onset: 10-13-2023 10-13-2023 Nonspecific chest pain (3 sources) Chest discomfort; Translations: [Other chest pain] Onset: 01-27-2023 Resolved: 03-05-2023 03-05-2023 Episodic Other circulatory disease (3 sources) Low blood pressure; Translations: [Hypotension, unspecified] Onset: 01-27-2023 01-27-2023 Episodic Other screening for suspected conditions (not mental disorders or infectious disease) (7 sources) Encounter for screening mammogram for malignant neoplasm of breast; Translations: [Cardiovascular stress test abnormal] Onset: 10-19-2020 Episodic Results Test Name Value Interpretation Reference Range Facility BASIC METABOLIC PANLon 10-14 Anion gap [Moles/Vol] 15 mmol/L Normal 5-15 [facility] Comment on above: Performed By: #### P INR, 24630-4, 718-7, PLTCT, BMP, 86615-5 #### [facility] ([id number]) [address], [address] [place] [address] Calcium [Mass/Vol] 8.0 mg/dL Low 8.5-10.5 [facility] Comment on above: Performed By: #### P INR, 69657-0, 718-7, PLTCT, BMP, 84384-4 #### [facility] ([id number]) [address], [address] [place] [address] Chloride [Moles/Vol] 97 mmol/L Low 98-109 [facility] Comment on above: Performed By: #### P INR, 95272-3, 718-7, PLTCT, BMP, 43066-4 #### [facility] ([id number]) [address], [address] [place] [address] CO2 [Moles/Vol] 28 mmol/L Normal 22-32 [facility] Comment on above: Performed By: #### P INR, 45581-8, 718-7, PLTCT, BMP, 40447-8 #### [facility] ([id number]) [address], [address] [place] [address] Creatinine [Mass/Vol] 0.88 mg/dL Normal 0.40-1.00 [facility] Comment on above: Result Comment: METH OD TRACEABLE TO IDMS STANDARD Performed By: #### P INR, 71143-2, 718-7, PLTCT, BMP, 51093-7 #### [facility] ([id number]) [address], [address] [place] [address] GFR/1.73 sq M.predicted among non-blacks MDRD (S/P/Bld) [Vol rate/Area] 71 mL/min/{1.73_m2} Normal >59 [facility] Comment on above: Result Comment: Reported eGFR is based on the CKD-EPI 2020 equation that does not use a race coefficient. Performed By: #### P INR, 15204-8, 718-7, PLTCT, BMP, 89462-6 #### [facility] ([id number]) [address], [address] [place] [address] Glucose [Mass/Vol] 138 mg/dL High 65-99 [facility] Comment on above: Performed By: #### P INR, 84814-0, 718-7, PLTCT, BMP, 93931-0 #### [facility] ([id number]) [address], [address] [place] [address] Potassium [Moles/Vol] 4.8 mmol/L Normal 3.5-5.0 [facility] Comment on above: Result Comment: SPEC IMEN HEMOLYZED, RESULTS INCREASED MODERATELY HEMOLYZED Performed By: #### P INR, 82140-8, 718-7, PLTCT, BMP, 47212-7 #### [facility] ([id number]) [address], [address] [place] [address] Sodium [Moles/Vol] 140 mmol/L Normal 134-146 [facility] Comment on above: Performed By: #### P INR, 61377-3, 718-7, PLTCT, BMP, 98876-2 #### [facility] ([id number]) [address], [address] [place] [address] Urea nitrogen [Mass/Vol] 20 mg/dL Normal 5-27 [facility] Comment on above: Performed By: #### P INR, 54637-2, 8-7, PLTCT, BMP, #### [facility] ([id number]) [address], [address] [place] [address] Basic Metabolic Panelon Anion gap [Moles/Vol] 15 mmol/L 5 - 15 mmol/L [facility] Calcium [Mass/Vol] 8.0 mg/dL Low 8.5 - 10. 5 mg/dL [facility] Chloride [Moles/Vol] 97 mmol/L Low 98 - 109 mmol/L [facility] CO2 [Moles/Vol] 28 mmol/L 22 - 32 mmol/L [facility] Creatinine [Mass/Vol] 0.88 mg/dL 0.40 - 1.00 mg/dL [facility] Comment on above: METHOD TRACEABLE TO IDNY STANDARD eGFR (CKD-EPI)non-race dependent 71 - PINF [facility] Comment on above: Reported eGFR is based on the CKD-EPI 2020 equation that does not use a race coefficient. Glucose [Mass/Vol] 138 mg/dL High 65 - 99 mg/dL [facility] Potassium [Moles/Vol] 4.8 mmol/L 3.5 - 5.0 mmol/L [facility] Comment on above: SPECIMEN HEMOLYZED, RESULTS INCREASED MODERATELY HEMOLYZED Sodium [Moles/Vol] 140 mmol/L 134 - 146 mmol/L [facility] Urea nitrogen [Mass/Vol] 20 mg/dL 5 - 27 mg/dL [facility] CBC AND AUTO DIFFon 10-15-19 24 ABSOLUTE BASOPHIL 0.0 X10E9/L Normal 0.0-0.2 [facility] Comment on above: Performed By: #### P INR, 59225-5, 718-7, PLTCT, BMP, 02549-9 #### [facility] ([id number]) [address], [address] [place] [address] ABSOLUTE NEUTROPHIL 4.6 X10E9/L Normal 1.5-6.6 [facility] Comment on above: Performed By: #### P INR, 81387-6, 718-7, PLTCT, BMP, 95723-4 #### [facility] ([id number]) [address], [address] [place] [address] Basophils/100 WBC (Bld) 0.4 % Normal [facility] Comment on above: Performed By: #### P INR, 52706-9, 718-7, PLTCT, BMP, 82509-4 #### [facility] ([id number]) [address] [address] Eosinophils (Bld) [#/Vol] 0.0 10*3/uL Normal 0.0-0.4 [facility] Comment on above: Performed By: #### P INR, 24669-8, 8-7, PLTCT, BMP, 04326-5 #### [facility] ([id number]) [address] [address] Eosinophils/100 WBC (Bld) 0.3 % Normal [facility] Comment on above: Performed By: #### P INR, 04720-4, 718-7, PLTCT, BMP, 46389-9 #### [facility] ([id number]) [address] [address] [place] [address] Erythrocyte distribution width (RBC) [Ratio] 12.7 % Normal 11.5-15.0 [facility] Comment on above: Performed By: #### P INR, 60633-9, 718-7, PLTCT, BMP, 00121-6 #### [facility] ([id number]) [address], [address] [place] [address] Hematocrit (Bld) [Volume fraction] 38.1 % Normal 35-47 [facility] Comment on above: Performed By: #### P INR, 13068-4, 718-7, PLTCT, BMP, 77404-1 #### [facility] ([id number]) [address], [address] [place] [address] Lymphocytes (Bld) [#/Vol] 2.2 10*3/uL Normal 1.0-3.5 [facility] Comment on above: Performed By: #### P INR, 44200-2, 718-7, PLTCT, BMP, 97326-5 #### [facility] ([id number]) [address], [facility] [address] [place] [address] Lymphocytes/100 WBC (Bld) 30.4 % Normal [facility] Comment on above: Performed By: #### P INR, 32956-0, 718-7, PLTCT, BMP, 73498-6 #### [facility] ([id number]) [address], [address] [place] [address] MCH (RBC) [Entitic mass] 34.3 pg High 27-34 [facility] Comment on above: Performed By: #### P INR, 51776-7, 8-7, PLTCT, BMP, 80036-8 #### [facility] ([id number]) [address], [address] [place] [address] MCHC (RBC) [Mass/Vol] 33.3 g/dL Normal 32-36 [facility] Comment on above: Performed By: #### P INR, 35896-5, 718-7, PLTCT, BMP, 11296-2 #### [facility] ([id number]) [address], [address] [place] [address] MCV (RBC) [Entitic vol] 103 fL High 80-100 [facility] Comment on above: Performed By: #### P INR, 02150-2, 718-7, PLTCT, BMP, 62819-2 #### [facility] ([id number]) [address], [address] [place] [address] Monocytes (Bld) [#/Vol] 0.4 10*3/uL Normal 0-0.9 [facility] Comment on above: Performed By: #### P INR, 22415-8, 718-7, PLTCT, BMP, 32095-3 #### [facility] ([id number]) [address], [address] [place] [address] Monocytes/100 WBC (Bld) 6.0 % Normal [facility] Comment on above: Performed By: #### P INR, 99890-9, 718-7, PLTCT, BMP, 30297-2 #### [facility] ([id number]) [address], [address] [place] [address] Neutrophils/100 WBC (Bld) 62.9 % Normal [facility] Comment on above: Performed By: #### P INR, 60440-4, 718-7, PLTCT, BMP, 35254-7 #### [facility] ([id number]) [address], [facility] [address] [place] [address] Platelet mean volume (Bld) [Entitic vol] 8.7 fL Normal 7-12 [facility] Comment on above: Performed By: #### P INR, 96547-9, 718-7, PLTCT, BMP, 82259-3 #### [facility] ([id number]) [address], [address] [place] [address] Platelets (Bld) [#/Vol] 229 10*3/uL Normal 150-450 [facility] Comment on above: Performed By: #### P INR, 77814-8, 718-7, PLTCT, BMP, 24355-3 #### [facility] ([id number]) [address], [address] [place] [address] RBC COUNT 3.69 X10E12/L Low 3.80-5.20 [facility] Comment on above: Performed By: #### P INR, 36759-3, 718-7, PLTCT, BMP, 38167-0 #### [facility] ([id number]) [address], [address] [place] [address] WBC (Bld) [#/Vol] 7.3 10*3/uL Normal 4.0-11.0 [facility] Comment on above: Performed By: #### P INR, 80858-9, 718-7, PLTCT, BMP, 87622-7 #### [facility] ([id number]) [address], [address] [place] [address] CBC auto differentialon 04-0 Basophils (Bld) [#/Vol] 0.0 10*3/uL [facility] Basophils/100 WBC (Bld) 0.4 % [facility] Eosinophils (Bld) [#/Vol] 0.0 10*3/uL [facility] Eosinophils/100 WBC (Bld) 0.3 % [facility] Erythrocyte distribution width (RBC) [Ratio] 12.7 % 11.5 - 15.0 % [facility] Hematocrit (Bld) [Volume fraction] 38.1 % 35 - 47 % [facility] Hemoglobin (Bld) [Mass/Vol] 12.7 g/dL 11.7 - 15.5 g/dL [facility] Interpretation and review of laboratory results Abnormal [facility] Lymphocytes (Bld) [#/Vol] 2.2 10*3/uL [facility] Lymphocytes/100 WBC (Bld) 30.4 % [facility] MCH (RBC) [Entitic mass] 34.3 pg High 27 - 34 pg [facility] MCHC (RBC) [Mass/Vol] 33.3 g/dL 32 - 36 g/dL [facility] MCV (RBC) [Entitic vol] 103 fL High 80 - 100 fL [facility] Monocytes (Bld) [#/Vol] 0.4 10*3/uL [facility] Monocytes/100 WBC (Bld) 6.0 % [facility] Neutrophils (Bld) [#/Vol] 4.6 10*3/uL [facility] Neutrophils/100 WBC (Bld) 62.9 % [facility] Platelet mean volume (Bld) [Entitic vol] 8.7 fL 7 - 12 fL [facility] Platelets (Bld) [#/Vol] 229 10*3/uL [facility] RBC (Bld) [#/Vol] 3.69 10*6/uL [facility] WBC corrected for nucl RBC Auto (Bld) [#/Vol] 7.3 [facility] CREATININEon 10-15-2023 Creatinine [Mass/Vol] 0.81 mg/dL Normal 0.40-1.00 [facility] Comment on above: Result Comment: METH OD TRACEABLE TO IDMS STANDARD Performed By: #### P INR, 61957-4, 718-7, PLTCT, BMP, 63726-3 #### [facility] ([id number]) [address] [place] [address] GFR/1.73 sq M.predicted among non-blacks MDRD (S/P/Bld) [Vol rate/Area] 79 mL/min/{1.73_m2} Normal >59 [facility] Comment on above: Result Comment: Reported eGFR is based on the CKD-EPI 2020 equation that does not use a race coefficient. Performed By: #### P INR, 66432-2, 718-7, PLTCT, BMP, 17493-5 #### [facility] ([id number]) [address] [facility] [address] [place] [address] Creatinine includes GFR, ser umon 10-15-2023 Creatinine [Mass/Vol] 0.81 mg/dL 0.40 - 1.00 mg/dL [facility] Comment on above: METHOD TRACEABLE TO IDMS STANDARD eGFR (CKD-EPI)non-race dependent 79 - PINF [facility] Comment on above: Reported eGFR is based on the CKD-EPI 2020 equation that does not use a race coefficient. HEMOGLOBINon 10-15-2023 Hemoglobin (Bld) [Mass/Vol] 12.7 g/dL Normal 11.7-15.5 [facility] Comment on above: Performed By: #### P INR, 19880-7, 718-7, PLTCT, BMP, 29901-1 #### [facility] ([id number]) [address] [address] [place] [address] Hemoglobinon 10-15-2023 Hemoglobin (Bld) [Mass/Vol] 12.7 g/dL 11.7 - 15.5 g/dL [facility] Ionized magnesiumon 10-15-19 Magnesium Ionized ISE (Bld) [Moles/Vol] 0.53 mmol/L 0.45 - 0.74 mmol/L [facility] Comment on above: NEW REFERENCE RANGE MAGNESIUMon 10-15-2023 Magnesium [Mass/Vol] 1.8 mg/dL Normal 1.8-2.6 [facility] Comment on above: Result Comment: SPEC IMEN HEMOLYZED, RESULTS INCREASED MARKEDLY HEMOLYZED Performed By: #### P INR, 43275-3, 718-7, PLTCT, BMP, 82194-8 #### [facility] ([id number]) [address] [facility] [place] [address] Magnesiumon 10-15-2023 Magnesium [Mass/Vol] 1.8 mg/dL 1.8 - 2.6 mg/dL [facility] Comment on above: SPECIMEN HEMOLYZED, RESULTS INCREASED MARKEDLY HEMOLYZED Magnesium Ionized ISE (Bld) [Moles/Vol]on 10-15-2023 Magnesium [Moles/Vol] 0.53 mmol/L Normal 0.45-0.74 [facility] Comment on above: Result Comment: NEW REFERENCE RANGE Performed By: #### P INR, 54314-8, 718-7, PLTCT, BMP, 19605-6 #### [facility] ([id number]) [address] [place] [address] [facility] No Panel Informationon 10-14 Interpretation and review of laboratory results Abnormal [facility] PHOSPHORUSon 10-15-2023 Phosphate [Mass/Vol] 5.7 mg/dL High 2.4-4.9 [facility] Comment on above: Result Comment: SPEC IMEN HEMOLYZED, RESULTS INCREASED MODERATELY HEMOLYZED Performed By: #### P INR, 26564-7, 718-7, PLTCT, BMP, 20857-7 #### [facility] ([id number]) [address], [address] [place] [address] PLATELET COUNT AND MPVon Platelet mean volume (Bld) [Entitic vol] 8.3 fL Normal 7-12 [facility] Comment on above: Performed By: #### P INR, 75043-3, 718-7, PLTCT, BMP, 63634-7 #### [facility] ([id number]) [address], [address] [place] [address] Platelets (Bld) [#/Vol] 219 10*3/uL Normal 150-450 [facility] Comment on above: Performed By: #### P INR, 67900-7, 718-7, PLTCT, BMP, 78822-9 #### [facility] ([id number]) [address] [place] [address] Phosphoruson 10-15-2023 Phosphate [Mass/Vol] 5.7 mg/dL High 2.4 - 4.9 mg/dL [facility] Comment on above: SPECIMEN HEMOLYZED, RESULTS INCREASED MODERATELY HEMOLYZED Platelet counton 10-15-2023 Platelet mean volume (Bld) [Entitic vol] 8.3 fL 7 - 12 fL [facility] Platelets (Bld) [#/Vol] 219 10*3/uL [facility] XR Chest Single viewon 10-14 Kay Dunn, DO - 10/15/2023 Procedure: Chest x-ray performed Number of views:AP view History:Hypoxia Comparison:10/12/2023 Findings: The heart and mediastinal silhouette are stable. There is pulmonary vascular congestion. There are no focal consolidations. There is a small left pleural effusion. There is no pneumothorax Impression: Pulmonary vascular congestion. Finalized by Kay Dunn DO on 10/15/2023 10:48 AM [facility] Chest Single viewOrdered By: Kay Dunn on 10-15-2023 [employer] Work Phone: Anti XA unfractionated hepar inon 10-14-2023 Heparin unfractionated Chromogenic method Qn (PPP) Low [facility] Comment on above: Optimal time for marky ting is 6 hrs post dosage This test is specific for monitoring patients on UFH, and is not recommended for use with other Anti-Xa medications. Heparin unfractionated Chromogenic method Qn (PPP) 0.68 [facility] Comment on above: Optimal time for marky ting is 6 hrs post dosage This test is specific for monitoring patients on UFH, and is not recommended for use with other Anti-Xa medications. BASIC METABOLIC PANLon 10-13 Anion gap [Moles/Vol] 11 mmol/L Normal 5-15 [facility] Comment on above: Performed By: #### P INR, 07741-9, 718-7, PLTCT, BMP, 22753-1 #### [facility] ([id number]) [address] [place] [address] Calcium [Mass/Vol] 7.4 mg/dL Low 8.5-10.5 [facility] Comment on above: Performed By: #### P INR, 34805-9, 718-7, PLTCT, BMP, 46040-5 #### [facility] ([id number]) [address] [place] [address] Chloride [Moles/Vol] 100 mmol/L Normal 98-109 [facility] Comment on above: Performed By: #### P INR, 08355-1, 718-7, PLTCT, BMP, 19299-7 #### [facility] ([id number]) [address] [place] [address] CO2 [Moles/Vol] 30 mmol/L Normal 22-32 [facility] Comment on above: Performed By: #### P INR, 32600-6, 718-7, PLTCT, BMP, 92573-0 #### [facility] ([id number]) [address] [place] [address] Creatinine [Mass/Vol] 1.05 mg/dL High 0.40-1.00 [facility] Comment on above: Result Comment: METH OD TRACEABLE TO IDMS STANDARD Performed By: #### P INR, 00922-6, 718-7, PLTCT, BMP, 20059-1 #### [facility] ([id number]) [address], [facility] [address] [place] [address] GFR/1.73 sq M.predicted among non-blacks MDRD (S/P/Bld) [Vol rate/Area] 58 mL/min/{1.73_m2} Low >59 [facility] Comment on above: Result Comment: Reported eGFR is based on the CKD-EPI 2020 equation that does not use a race coefficient. Performed By: #### P INR, 96280-2, 718-7, PLTCT, BMP, 64681-9 #### [facility] ([id number]) [address] [place] [address] Glucose [Mass/Vol] 122 mg/dL High 65-99 [facility] Comment on above: Performed By: #### P INR, 01601-3, 718-7, PLTCT, BMP, 92959-0 #### [facility] ([id number]) [address] [place] [address] Potassium [Moles/Vol] 4.4 mmol/L Normal 3.5-5.0 [facility] Comment on above: Performed By: #### P INR, 10053-3, 718-7, PLTCT, BMP, 33758-5 #### [facility] ([id number]) [address] [place] [address] Sodium [Moles/Vol] 141 mmol/L Normal 134-146 [facility] Comment on above: Performed By: #### P INR, 25601-0, 718-7, PLTCT, BMP, 27894-1 #### [facility] ([id number]) [address], [facility] [address] [place] [address] Urea nitrogen [Mass/Vol] 22 mg/dL Normal 5-27 [facility] Comment on above: Performed By: #### P INR, 11578-5, 718-7, PLTCT, BMP, 42103-6 #### [facility] ([id number]) [address], [facility] [address] [place] [address] Basic Metabolic Panelon 04-0 Anion gap [Moles/Vol] 11 mmol/L 5 - 15 mmol/L [facility] Calcium [Mass/Vol] 7.4 mg/dL Low 8.5 - 10. 5 mg/dL [facility] Chloride [Moles/Vol] 100 mmol/L 98 - 109 mmol/L [facility] CO2 [Moles/Vol] 30 mmol/L 22 - 32 mmol/L [facility] Creatinine [Mass/Vol] 1.05 mg/dL High 0.40 - 1.00 mg/dL [facility] Comment on above: METHOD TRACEABLE TO IDNY STANDARD eGFR (CKD-EPI)non-race dependent 58 Low - PINF [facility] Comment on above: Reported eGFR is based on the CKD-EPI 2020 equation that does not use a race coefficient. Glucose [Mass/Vol] 122 mg/dL High 65 - 99 mg/dL [facility] Interpretation and review of laboratory results Abnormal [facility] Potassium [Moles/Vol] 4.4 mmol/L 3.5 - 5.0 mmol/L [facility] Sodium [Moles/Vol] 141 mmol/L 134 - 146 mmol/L [facility] Urea nitrogen [Mass/Vol] 22 mg/dL 5 - 27 mg/dL [facility] CBC without diffon Erythrocyte distribution width (RBC) [Ratio] 13.0 % 11.5 - 15.0 % [facility] Hematocrit (Bld) [Volume fraction] 37.7 % 35 - 47 % [facility] Hemoglobin (Bld) [Mass/Vol] 12.5 g/dL 11.7 - 15.5 g/dL [facility] Interpretation and review of laboratory results Abnormal [facility] MCH (RBC) [Entitic mass] 34.4 pg High 27 - 34 pg [facility] MCHC (RBC) [Mass/Vol] 33.1 g/dL 32 - 36 g/dL [facility] MCV (RBC) [Entitic vol] 104 fL High 80 - 100 fL [facility] Platelet mean volume (Bld) [Entitic vol] 8.8 fL 7 - 12 fL [facility] Platelets (Bld) [#/Vol] 207 10*3/uL [facility] RBC (Bld) [#/Vol] 3.64 10*6/uL Low [facility] WBC corrected for nucl RBC Auto (Bld) [#/Vol] 8.4 [facility] [facility] COMPLETE BLOOD COUNTon 10-13 Erythrocyte distribution width (RBC) [Ratio] 13.0 % Normal 11.5-15.0 [facility] Comment on above: Performed By: #### P INR, 29614-4, 718-7, PLTCT, BMP, 77952-3 #### [facility] ([id number]) [address], [address] [place] [address] Hematocrit (Bld) [Volume fraction] 37.7 % Normal 35-47 [facility] Comment on above: Performed By: #### P INR, 30323-4, 718-7, PLTCT, BMP, 96328-8 #### [facility] ([id number]) [address], [facility] [address] [place] [address] Hemoglobin (Bld) [Mass/Vol] 12.5 g/dL Normal 11.7-15.5 [facility] Comment on above: Performed By: #### P INR, 85699-6, 718-7, PLTCT, BMP, 18325-3 #### [facility] ([id number]) [address], [address] [address] MCH (RBC) [Entitic mass] 34.4 pg High 27-34 [facility] Comment on above: Performed By: #### P INR, 61782-3, 718-7, PLTCT, BMP, 34168-4 #### [facility] ([id number]) [address], [address] [address] MCHC (RBC) [Mass/Vol] 33.1 g/dL Normal 32-36 [facility] Comment on above: Performed By: #### P INR, 35652-5, 718-7, PLTCT, BMP, 84044-7 #### [facility] ([id number]) [address] [address] MCV (RBC) [Entitic vol] 104 fL High 80-100 [facility] Comment on above: Performed By: #### P INR, 38718-5, 718-7, PLTCT, BMP, 26567-9 #### [facility] ([id number]) [address] [address] Platelet mean volume (Bld) [Entitic vol] 8.8 fL Normal 7-12 [facility] Comment on above: Performed By: #### P INR, 60750-0, 718-7, PLTCT, BMP, 21239-1 #### [facility] ([id number]) [address], [address] [address] Platelets (Bld) [#/Vol] 207 10*3/uL Normal 150-450 [facility] Comment on above: Performed By: #### P INR, 82315-9, 718-7, PLTCT, BMP, 60565-5 #### [facility] ([id number]) [address] [address] RBC COUNT 3.64 X10E12/L Low 3.80-5.20 [facility] Comment on above: Performed By: #### P INR, 23133-2, 718-7, PLTCT, BMP, 34659-1 #### [facility] ([id number]) [address] [address] WBC (Bld) [#/Vol] 8.4 10*3/uL Normal 4.0-11.0 [facility] Comment on above: Performed By: #### P INR, 97436-3, 718-7, PLTCT, BMP, 08655-6 #### [facility] ([id number]) [address] [address] Calcium.ionized (Bld) [Mass/ Vol]on 10-14-2023 IONIZED CALCIUM 4.3 mg/dL Low 4.5-5.3 [facility] Comment on above: Performed By: #### P INR, 19328-5, 718-7, PLTCT, BMP, 29267-8 #### [facility] ([id number]) [address] [address] Interpretation and review of laboratory results Abnormal [facility] IONIZED CALCIUM 3.9 mg/dL Low 4.5-5.3 [facility] Comment on above: Performed By: #### P INR, 97643-3, 718-7, PLTCT, BMP, 56844-0 #### [facility] ([id number]) [address] [place] [address] Interpretation and review of laboratory results Abnormal [facility] IONIZED CALCIUM 4.1 mg/dL Low 4.5-5.3 [facility] Comment on above: Performed By: #### P INR, 41916-4, 718-7, PLTCT, BMP, 94487-8 #### [facility] ([id number]) [address], [address] [place] [address] Interpretation and review of laboratory results Abnormal [facility] Coronary angiography perform edon 10-14-2023 Addendum by Alexi Fremean MD on 10/14/2023 5:07 PM EDT Severe multivessel coronary artery disease Patent previously placed left circumflex stent Occluded saphenous vein graft to PDA which is a new finding Normal left and right heart filling pressures. Normal pulmonary arterial pressure mildly elevated left ventricular end-diastolic pressure normal cardiac output and cardiac index. Recommendations: Continue aggressive risk factor modification Continue aggressive medical management Coronary Findings Diagnostic Dominance: Right Left Main: This is short and angiographically normal Left Anterior Descending: The vessel was visualized by angiography and is small. There is severe diffuse disease throughout the vessel. Mid LAD lesion is 100% stenosed. Left Circumflex: The vessel was visualized by angiography and is large. Previously placed Ost Cx to Prox Cx stent of unknown type is widely patent. Previously placed Mid Cx to Dist Cx drug eluting stent is widely patent. Lesion length: 10 mm. The lesion was previously treated using angioplasty. Stent delivery was done by way of balloon expansion. Angioplasty was performed using a standard balloon. Previous treatment took place 6-12 months ago. Second Obtuse Marginal Branch: 2nd Mrg lesion is 50% stenosed. Right Coronary Artery: Prox RCA lesion is 100% stenosed. The lesion was previously treated using a stent of unknown type. Dist RCA lesion is 90% stenosed. Right Posterior Atrioventricular Artery: RPAV filled by collaterals from Dist Cx. Vein Graft To Dist RCA: The graft was visualized by angiography and is moderate in size. Origin to Prox Graft lesion is 100% stenosed. CHURCH Graft To Dist LAD: The graft is small. CHURCH graft to small throughout and this is a chronic finding. The distal LAD is subtotally occluded just distal to the anastomosis the distal LAD after that reconstitutes via [id number] collaterals. The vessel is extremely small and not amenable to PCI. Intervention No interventions have been documented. Right Atrium Normal left and right heart filling pressures. Normal pulmonary arterial pressure mildly elevated left ventricular end-diastolic pressure normal cardiac output and cardiac index. [facility] Radiology Study observation (narrative) [facility] ECG 12 leadon 10-14-2023 TRACEMASTERVUE [facility] HGB A1C (GLYCO-HGB)on 2023 Glucose [Mass/Vol] 91 mg/dL Normal [facility] Comment on above: Performed By: #### P INR, 93508-6, 718-7, PLTCT, BMP, 62614-5 #### [facility] ([id number]) [address] [place] [address], [facility] [address] [place] [address] HbA1c (Bld) [Mass fraction] 4.8 % Normal 4.4-5.6 [facility] Comment on above: Result Comment: NOTE ADA Guidelines Result HgbA1c Normal : less than 5.7 % Prediabetes : 5.7 % to 6.4 % Diabetes : > 6.4 % Use with caution in patients with abnormal hemoglobin variants as the half-life of red blood cells and in vivo glycation rates are affected. Performed By: #### P INR, 73702-8, 718-7, PLTCT, BMP, 80535-8 #### [facility] ([id number]) [address], [address] [place] [address] Hemoglobin A1con 10-14-2023 Average glucose Estimated from glycated hemoglobin (Bld) [Mass/Vol] 91 mg/dL [facility] HbA1c (Bld) [Mass fraction] 4.8 % 4.4 - 5.6 % [facility] Comment on above: NOTE ADA Guidelines Result HgbA1c Normal : less than 5.7 % Prediabetes : 5.7 % to 6.4 % Diabetes : > 6.4 % Use with caution in patients with abnormal hemoglobin variants as the half-life of red blood cells and in vivo glycation rates are affected. [facility] Heparin unfractionated Chrom ogenic method Qn (PPP)on 10-14-2023 ANTI XA UFH <0.04 Low 0.30-0.70 [facility] Comment on above: Result Comment: Opti mal time for testing is 6 hrs post dosage This test is specific for monitoring patients on UFH, and is not recommended for use with other Anti-Xa medications. Performed By: #### P INR, 16916-7, 718-7, PLTCT, BMP, 95872-1 #### [facility] ([id number]) [address], [address] [place] [address] Interpretation and review of laboratory results Abnormal [facility] ANTI XA UFH 0.68 IU/mL Normal 0.30-0.70 [facility] Comment on above: Result Comment: Opti mal time for testing is 6 hrs post dosage This test is specific for monitoring patients on UFH, and is not recommended for use with other Anti-Xa medications. Performed By: #### P INR, 06204-5, 718-7, PLTCT, BMP, 76292-4 #### [facility] ([id number]) [address], [address] [place] [address] [facility] Ionized calciumon 10-14-2023 Calcium.ionized (Bld) [Mass/Vol] 4.3 mg/dL Low 4.5 - 5.3 mg/dL [facility] Calcium.ionized (Bld) [Mass/Vol] 3.9 mg/dL Low 4.5 - 5.3 mg/dL [facility] Calcium.ionized (Bld) [Mass/Vol] 4.1 mg/dL Low 4.5 - 5.3 mg/dL [facility] Ionized magnesiumon 10-14-19 Magnesium Ionized ISE (Bld) [Moles/Vol] 0.54 mmol/L 0.45 - 0.74 mmol/L [facility] Comment on above: NEW REFERENCE RANGE Lipid 1996 panelon 4 Cholesterol [Mass/Vol] 135 mg/dL Low 150-200 [facility] Comment on above: Performed By: #### P INR, 32687-9, 718-7, PLTCT, BMP, 03884-6 #### [facility] ([id number]) [address], [address] [place] [address] Cholesterol in HDL [Mass/Vol] 59 mg/dL Normal >39 [facility] Comment on above: Result Comment: HDL <40 mg/dL - High Risk HDL > or = 40mg/dL- Desirable HDL >60 mg/dL - Negative Risk Performed By: #### P INR, 03113-8, 718-7, PLTCT, BMP, 13772-5 #### [facility] ([id number]) [address], [address] [place] [address] Cholesterol in LDL [Mass/Vol] 46 mg/dL Normal <130 [facility] Comment on above: Result Comment: LDL <100 mg/dL - Desirable LDL >160 mg/dL - High Risk Performed By: #### P INR, 19221-4, 718-7, PLTCT, BMP, 45097-3 #### [facility] ([id number]) [address], [address] [place] [address] Cholesterol in VLDL [Mass/Vol] 30 mg/dL Normal 0-30 [facility] Comment on above: Performed By: #### P INR, 33786-6, 718-7, PLTCT, BMP, 23373-6 #### [facility] ([id number]) [address] [place] [address] CHOLESTEROL:HDL 2.3 Normal 1.0-5.0 [facility] Comment on above: Performed By: #### P INR, 84804-7, 718-7, PLTCT, BMP, 81631-6 #### [facility] ([id number]) [address], [address] [place] [address] Triglyceride [Mass/Vol] 150 mg/dL Normal 27-150 [facility] Comment on above: Performed By: #### P INR, 64667-8, 718-7, PLTCT, BMP, 13354-2 #### [facility] ([id number]) [address], [address] [place] [address] Cholesterol [Mass/Vol] 135 mg/dL Low 150 - 200 mg/dL [facility] Cholesterol in HDL [Mass/Vol] 59 mg/dL 39 - PINF mg/dL [facility] Comment on above: HDL <40 mg/dL - High Risk HDL > or = 40mg/dL- Desirable HDL >60 mg/dL - Negative Risk Cholesterol in LDL [Mass/Vol] 46 mg/dL NINF - 130 mg/dL [facility] Comment on above: LDL <100 mg/dL - Desirable LDL >160 mg/dL - High Risk Cholesterol in VLDL [Mass/Vol] 30 mg/dL 0 - 30 mg/dL [facility] Cholesterol.total/ Cholesterol in HDL [Mass ratio] 2.3 {ratio} 1.0 - 5.0 [facility] Interpretation and review of laboratory results Abnormal [facility] Triglyceride [Mass/Vol] 150 mg/dL 27 - 150 mg/dL [facility] MAGNESIUMon 10-14-2023 Magnesium [Mass/Vol] 1.8 mg/dL Normal 1.8-2.6 [facility] Comment on above: Performed By: #### P INR, 87631-9, 718-7, PLTCT, BMP, 44103-9 #### [facility] ([id number]) [address], [address] [place] [address] Magnesiumon 10-14-2023 Magnesium [Mass/Vol] 1.8 mg/dL 1.8 - 2.6 mg/dL [facility] Magnesium Ionized ISE (Bld) [Moles/Vol]on 10-14-2023 Magnesium [Moles/Vol] 0.54 mmol/L Normal 0.45-0.74 [facility] Comment on above: Result Comment: NEW REFERENCE RANGE Performed By: #### P INR, 57204-1, 718-7, PLTCT, BMP, 25693-5 #### [facility] ([id number]) [address] [facility] [address] [address], [address] [place] [address] [facility] No Panel Informationon 10-13 [facility] APTTon 10-13-2023 aPTT Coag (PPP) [Time] 48 s [facility] Anti XA unfractionated hepar inon 10-13-2023 Heparin unfractionated Chromogenic method Qn (PPP) 0.74 [facility] Comment on above: Optimal time for marky ting is 6 hrs post dosage This test is specific for monitoring patients on UFH, and is not recommended for use with other Anti-Xa medications. Heparin unfractionated Chromogenic method Qn (PPP) 0.69 [facility] Comment on above: Optimal time for marky ting is 6 hrs post dosage This test is specific for monitoring patients on UFH, and is not recommended for use with other Anti-Xa medications. Heparin unfractionated Chromogenic method Qn (PPP) 0.72 [facility] Comment on above: Optimal time for marky ting is 6 hrs post dosage This test is specific for monitoring patients on UFH, and is not recommended for use with other Anti-Xa medications. BASIC METABOLIC PANLon 10-12 Anion gap [Moles/Vol] 13 mmol/L Normal 5-15 [facility] Comment on above: Performed By: #### P INR, 62213-2, 718-7, PLTCT, BMP, 41427-8 #### [facility] ([id number]) [address], [address] [place] [address] Calcium [Mass/Vol] 6.3 mg/dL Critically low 8.5-10.5 [facility] Comment on above: Performed By: #### P INR, 70188-2, 718-7, PLTCT, BMP, 25359-3 #### [facility] ([id number]) [address], [address] [place] [address] Chloride [Moles/Vol] 100 mmol/L Normal 98-109 [facility] Comment on above: Performed By: #### P INR, 85553-4, 718-7, PLTCT, BMP, 28845-1 #### [facility] ([id number]) [address], [address] [place] [address] CO2 [Moles/Vol] 30 mmol/L Normal 22-32 [facility] Comment on above: Performed By: #### P INR, 73211-8, 718-7, PLTCT, BMP, 82987-2 #### [facility] ([id number]) [address], [address] [place] [address] Creatinine [Mass/Vol] 0.79 mg/dL Normal 0.40-1.00 [facility] Comment on above: Result Comment: METH OD TRACEABLE TO IDMS STANDARD Performed By: #### P INR, 43930-5, 718-7, PLTCT, BMP, 35779-6 #### [facility] ([id number]) [address], [address] [place] [address] GFR/1.73 sq M.predicted among non-blacks MDRD (S/P/Bld) [Vol rate/Area] 81 mL/min/{1.73_m2} Normal >59 [facility] Comment on above: Result Comment: Reported eGFR is based on the CKD-EPI 2020 equation that does not use a race coefficient. Performed By: #### P INR, 86474-3, 718-7, PLTCT, BMP, 50359-3 #### [facility] ([id number]) [address], [address] [place] [address] Glucose [Mass/Vol] 157 mg/dL High 65-99 [facility] Comment on above: Performed By: #### P INR, 54560-5, 718-7, PLTCT, BMP, 30288-6 #### [facility] ([id number]) [address], [address] [place] [address] Potassium [Moles/Vol] 3.4 mmol/L Low 3.5-5.0 [facility] Comment on above: Performed By: #### P INR, 18042-9, 718-7, PLTCT, BMP, 19886-3 #### [facility] ([id number]) [address], [address] [place] [address] Sodium [Moles/Vol] 143 mmol/L Normal 134-146 [facility] Comment on above: Performed By: #### P INR, 07422-9, 718-7, PLTCT, BMP, 18394-5 #### [facility] ([id number]) [address], [address] [place] [address] Urea nitrogen [Mass/Vol] 16 mg/dL Normal 5-27 [facility] Comment on above: Performed By: #### P INR, 61833-5, 718-7, PLTCT, BMP, 03205-6 #### [facility] ([id number]) [address], [address] [place] [address] Anion gap [Moles/Vol] 15 mmol/L Normal 5-15 [facility] Comment on above: Performed By: #### P INR, 62314-2, 718-7, PLTCT, BMP, 38452-0 #### [facility] ([id number]) [address], [address] [place] [address] Calcium [Mass/Vol] 6.5 mg/dL Critically low 8.5-10.5 [facility] Comment on above: Performed By: #### P INR, 96915-0, 718-7, PLTCT, BMP, 03785-0 #### [facility] ([id number]) [address], [facility] [address] [place] [address] Chloride [Moles/Vol] 100 mmol/L Normal 98-109 [facility] Comment on above: Performed By: #### P INR, 77150-3, 718-7, PLTCT, BMP, 00819-9 #### [facility] ([id number]) [address], [address] [place] [address] CO2 [Moles/Vol] 30 mmol/L Normal 22-32 [facility] Comment on above: Performed By: #### P INR, 50952-9, 718-7, PLTCT, BMP, 03641-4 #### [facility] ([id number]) [address], [address] [place] [address] Creatinine [Mass/Vol] 0.88 mg/dL Normal 0.40-1.00 [facility] Comment on above: Result Comment: METH OD TRACEABLE TO IDMS STANDARD Performed By: #### P INR, 84590-0, 718-7, PLTCT, BMP, 28418-5 #### [facility] ([id number]) [address], [facility] [address] [place] [address] GFR/1.73 sq M.predicted among non-blacks MDRD (S/P/Bld) [Vol rate/Area] 71 mL/min/{1.73_m2} Normal >59 [facility] Comment on above: Result Comment: Reported eGFR is based on the CKD-EPI 2020 equation that does not use a race coefficient. Performed By: #### P INR, 16095-3, 718-7, PLTCT, BMP, 35025-9 #### [facility] ([id number]) [address], [address] [place] [address] Glucose [Mass/Vol] 154 mg/dL High 65-99 [facility] Comment on above: Performed By: #### P INR, 03981-2, 718-7, PLTCT, BMP, 61396-5 #### [facility] ([id number]) [address], [facility] [address] [place] [address] Potassium [Moles/Vol] 3.4 mmol/L Low 3.5-5.0 [facility] Comment on above: Performed By: #### P INR, 99135-3, 718-7, PLTCT, BMP, 80816-0 #### [facility] ([id number]) [address], [address] [place] [address] Sodium [Moles/Vol] 145 mmol/L Normal 134-146 [facility] Comment on above: Performed By: #### P INR, 34857-0, 718-7, PLTCT, BMP, 70117-1 #### [facility] ([id number]) [address], [facility] [address] [place] [address] Urea nitrogen [Mass/Vol] 16 mg/dL Normal 5-27 [facility] Comment on above: Performed By: #### P INR, 30800-7, 718-7, PLTCT, BMP, 28572-6 #### [facility] ([id number]) [address], [facility] [address] [place] [address] Basic Metabolic Panelon 04-0 Anion gap [Moles/Vol] 13 mmol/L 5 - 15 mmol/L [facility] Calcium [Mass/Vol] 6.3 mg/dL Critically low 8.5 - 1 0.5 mg/dL [facility] Chloride [Moles/Vol] 100 mmol/L 98 - 109 mmol/L [facility] CO2 [Moles/Vol] 30 mmol/L 22 - 32 mmol/L [facility] Creatinine [Mass/Vol] 0.79 mg/dL 0.40 - 1.00 mg/dL [facility] Comment on above: METHOD TRACEABLE TO [facility] STANDARD eGFR (CKD-EPI)non-race dependent 81 - PINF [facility] Comment on above: Reported eGFR is based on the CKD-EPI 2021 equation that does not use a race coefficient. Glucose [Mass/Vol] 157 mg/dL High 65 - 99 mg/dL [facility] Interpretation and review of laboratory results Abnormal [facility] Potassium [Moles/Vol] 3.4 mmol/L Low 3.5 - 5.0 mmol/L [facility] Sodium [Moles/Vol] 143 mmol/L 134 - 146 mmol/L [facility] Urea nitrogen [Mass/Vol] 16 mg/dL 5 - 27 mg/dL [facility] Anion gap [Moles/Vol] 15 mmol/L 5 - 15 mmol/L [facility] Calcium [Mass/Vol] 6.5 mg/dL Critically low 8.5 - 1 0.5 mg/dL [facility] Chloride [Moles/Vol] 100 mmol/L 98 - 109 mmol/L [facility] CO2 [Moles/Vol] 30 mmol/L 22 - 32 mmol/L [facility] Creatinine [Mass/Vol] 0.88 mg/dL 0.40 - 1.00 mg/dL [facility] Comment on above: METHOD TRACEABLE TO [facility] STANDARD eGFR (CKD-EPI)non-race dependent 71 - PINF [facility] Comment on above: Reported eGFR is based on the CKD-EPI 2021 equation that does not use a race coefficient. Glucose [Mass/Vol] 154 mg/dL High 65 - 99 mg/dL [facility] Potassium [Moles/Vol] 3.4 mmol/L Low 3.5 - 5.0 mmol/L [facility] Sodium [Moles/Vol] 145 mmol/L 134 - 146 mmol/L [facility] Urea nitrogen [Mass/Vol] 16 mg/dL 5 - 27 mg/dL [facility] CBC AND AUTO DIFFon 10-13-19 ABSOLUTE BASOPHIL 0.0 X10E9/L Normal 0.0-0.2 [facility] Comment on above: Performed By: #### C HENRI, , THYR, 37119-3 #### [facility] ([id number]) [address], [address] [place] [address] ABSOLUTE NEUTROPHIL 4.2 X10E9/L Normal 1.5-6.6 [facility] Comment on above: Performed By: #### Berhane ÁLVAREZ, , THYR, 79823-5 #### [facility] ([id number]) [address], [address] [place] [address] Basophils/100 WBC (Bld) 0.1 % Normal [facility] Comment on above: Performed By: #### Berhane ÁLVAREZ, , THYR, 48997-5 #### [facility] ([id number]) [address], [address] [place] [address] Eosinophils (Bld) [#/Vol] 0.0 10*3/uL Normal 0.0-0.4 [facility] Comment on above: Performed By: #### Berhane ÁLVAREZ, , THYR, 24407-4 #### [facility] ([id number]) [address], [address] [place] [address] Eosinophils/100 WBC (Bld) 0.0 % Normal [facility] Comment on above: Performed By: #### Berhane ÁLVAREZ, , THYR, 19561-1 #### [facility] ([id number]) [address], [address] [place] [address] Erythrocyte distribution width (RBC) [Ratio] 12.5 % Normal 11.5-15.0 [facility] Comment on above: Performed By: #### Berhane ÁLVAREZ, , THYR, 72227-7 #### [facility] ([id number]) [address], [address] [place] [address] Hematocrit (Bld) [Volume fraction] 39.2 % Normal 35-47 [facility] Comment on above: Performed By: #### C BCA, , THYR, 06575-0 #### [facility] ([id number]) [address], [address] [place] [address] Hemoglobin (Bld) [Mass/Vol] 13.2 g/dL Normal 11.7-15.5 [facility] Comment on above: Performed By: #### Berhane BCA, , THYR, 31362-8 #### [facility] ([id number]) [address], [address] [place] [address] Lymphocytes (Bld) [#/Vol] 0.9 10*3/uL Low 1.0-3.5 [facility] Comment on above: Performed By: #### Berhane BCA, , THYR, 76361-5 #### [facility] ([id number]) [address], [address] [place] [address] Lymphocytes/100 WBC (Bld) 17.5 % Normal [facility] Comment on above: Performed By: #### Berhane BCA, , THYR, 28541-2 #### [facility] ([id number]) [address], [address] [place] [address] MCH (RBC) [Entitic mass] 34.6 pg High 27-34 [facility] Comment on above: Performed By: #### C BCA, , THYR, 39031-8 #### [facility] ([id number]) [address], [address] [place] [address] MCHC (RBC) [Mass/Vol] 33.6 g/dL Normal 32-36 [facility] Comment on above: Performed By: #### C BCA, , THYR, 60592-4 #### [facility] ([id number]) [address], [address] [place] [address] MCV (RBC) [Entitic vol] 103 fL High 80-100 [facility] Comment on above: Performed By: #### C BCA, , THYR, 79959-9 #### [facility] ([id number]) [address], [address] [place] [address] Monocytes (Bld) [#/Vol] 0.1 10*3/uL Normal 0-0.9 [facility] [facility] Comment on above: Performed By: #### C BCA, , THYR, 75353-6 #### [facility] ([id number]) [address], [address] [place] [address] Monocytes/100 WBC (Bld) 2.5 % [facility] Comment on above: Performed By: #### Berhane BCA, , THYR, 17673-2 #### [facility] ([id number]) [address], [address] [place] [address] Neutrophils/100 WBC (Bld) 79.9 % [facility] Comment on above: Performed By: #### Berhane BCA, , THYR, 31906-7 #### [facility] ([id number]) [address], [address] [place] [address] Platelet mean volume (Bld) [Entitic vol] 8.6 fL Normal 7-12 [facility] Comment on above: Performed By: #### C BCA, , THYR, 58766-2 #### [facility] ([id number]) [address], [address] [place] [address] Platelets (Bld) [#/Vol] 176 10*3/uL Normal 150-450 [facility] Comment on above: Performed By: #### C BCA, 58300-9, THYR, 54859-0 #### [facility] ([id number]) [address], [address] [place] [address] RBC COUNT 3.80 X10E12/L Normal 3.80-5.20 [facility] Comment on above: Performed By: #### Berhane BCA, 90926-4, THYR, 40068-4 #### [facility] ([id number]) [address] [place] [address] WBC (Bld) [#/Vol] 5.3 10*3/uL Normal 4.0-11.0 [facility] Comment on above: Performed By: #### Berhane BCA, 66219-3, THYR, 35790-4 #### [facility] ([id number]) [address], [address] [place] [address] CBC auto differentialon 04-0 Basophils (Bld) [#/Vol] 0.0 10*3/uL [facility] Basophils/100 WBC (Bld) 0.1 % [facility] Eosinophils (Bld) [#/Vol] 0.0 10*3/uL [facility] Eosinophils/100 WBC (Bld) 0.0 % [facility] Erythrocyte distribution width (RBC) [Ratio] 12.5 % 11.5 - 15.0 % [facility] Hematocrit (Bld) [Volume fraction] 39.2 % 35 - 47 % [facility] Hemoglobin (Bld) [Mass/Vol] 13.2 g/dL 11.7 - 15.5 g/dL [facility] Interpretation and review of laboratory results Abnormal [facility] Lymphocytes (Bld) [#/Vol] 0.9 10*3/uL Low [facility] Lymphocytes/100 WBC (Bld) 17.5 % [facility] MCH (RBC) [Entitic mass] 34.6 pg High 27 - [address] [facility] MCHC (RBC) [Mass/Vol] 33.6 g/dL 32 - 36 g/dL [facility] MCV (RBC) [Entitic vol] 103 fL High 80 - 100 fL [facility] Monocytes (Bld) [#/Vol] 0.1 10*3/uL [facility] Monocytes/100 WBC (Bld) 2.5 % [facility] Neutrophils (Bld) [#/Vol] 4.2 10*3/uL [facility] Neutrophils/100 WBC (Bld) 79.9 % [facility] Platelet mean volume (Bld) [Entitic vol] 8.6 fL 7 - [address] [facility] Platelets (Bld) [#/Vol] 176 10*3/uL [facility] RBC (Bld) [#/Vol] 3.80 10*6/uL [facility] WBC corrected for nucl RBC Auto (Bld) [#/Vol] 5.[address] [facility] Calcium.ionized (Bld) [Mass/ Vol]on 10-13-2023 IONIZED CALCIUM 3.9 mg/dL Low 4.5-5.3 [facility] Comment on above: Performed By: #### P INR, 76273-4, 718-7, PLTCT, BMP, 09559-0 #### [facility] ([id number]) [address], [address] [place] [address] Interpretation and review of laboratory results Abnormal [facility] IONIZED CALCIUM 3.8 mg/dL Low 4.5-5.3 [facility] Comment on above: Performed By: #### 3 8230-9, 54195-1 #### [facility] ([id number]) [address] [place] [address] Cardiac echo study Procedure on 10-13-2023 Aortic root 2.[address] [facility] AV mean gradient 2.00 mmHg [facility] peak gradient 3.68 [facility] AV peak jeannie 95.90 cm/s [facility] AV valve area 2.[address] [facility] AV Velocity Ratio 0.65 [facility] AV VTI 18.60 cm [facility] E wave deceleration time 124.00 msec [facility] E/A ratio 1.81 [facility] FS 11 % 28 - 44 % [facility] Interventricular Septum Diastolic Thickness by 2D 9 cm [facility] IVS 0.90 cm 0.6 - 1.1 cm [facility] LA size 3.10 cm [facility] LA volume 35.80 cm3 [facility] LA Volume Index 20.8 mL/m2 [facility] Left Ventricle Mass [id number] g [facility] LV ESV A2C 39.00 mL [facility] LV ESV A4C 31.30 mL [facility] LV RWT 2D 44.44 [facility] LVIDd 4.50 cm [facility] LVIDs 4.00 cm [facility] LVOT diameter 2.00 cm [facility] LVOT peak jeannie 0.58 m/s [facility] LVOT peak VTI 12.00 cm [facility] LVOT stroke volume 37.70 ml [facility] MV Peak A Jeannie 49.50 cm/s [facility] MV Peak E Jeannie 89.70 cm/s [facility] MV pressure 1/2 time 36.00 ms [facility] MV TDI E' (medial) 10.60 cm/s [facility] MV valve area p 1/2 method 6.11 cm2 [facility] PW 1.00 cm 0.6 - 1.1 cm [facility] RA area 11.2 cm2 [facility] RV diastolic dimension (basal) 30.0 mm [facility] TAPSE 1.04 cm [facility] TDI 11.90 cm/s [facility] TR peak gradient 11.42 mmHg [facility] TR Peak Jeannie 1.7 m/s [facility] Valve area - Index 1.2 [facility] Left Ventricle: Syst olic function is severely decreased with an ejection fraction of 20-25%. Aortic Valve: There is trace regurgitation. There is no evidence of aortic valve stenosis. Mitral Valve: There is mild regurgitation. There is no evidence of mitral valve stenosis. Tricuspid Valve: There is trace regurgitation. There is no evidence of tricuspid valve stenosis. Left Ventricle Left ventricle appears normal in size. Wall thickness is normal. Systolic function is severely decreased with an ejection fraction of 20-25%. See wall score diagram for wall motion abnormalities. Grade I diastolic dysfunction (impaired relaxation) is present. Lateral E' is 11.90 cm/s. Medial E' is 10.60 cm/s. Right Ventricle Right ventricular size appears normal. The right ventricular basal diameter is 30.0 mm. Systolic function is normal. Abnormal tricuspid annular plane systolic excursion. Normal systolic excursion velocity by TDI (>9.5 cm/s). Left Atrium Left atrium is normal in size. The left atrial volume index is 20.8 mL/m2. Right Atrium Right atrium is normal in size. The right atrial area is 11.2 cm2. IVC/SVC IVC is not well visualized. Mitral Valve The leaflets are mildly thickened. There is mild regurgitation. There is no evidence of mitral valve stenosis. Tricuspid Valve Tricuspid valve appears to be normal. There is trace regurgitation. There is no evidence of tricuspid valve stenosis. Insufficient regurgitant jet to assess right ventricular systolic pressure. Aortic Valve The aortic valve is trileaflet. There is mild sclerosis. There is trace regurgitation. There is no evidence of aortic valve stenosis. Pulmonic Valve Pulmonic valve structure is grossly normal. There is no regurgitation or stenosis. Ascending Aorta The aortic root is normal in size. Pericardium There is no pericardial effusion. Study Details A complete echo was performed using complete 2D, color flow Doppler and spectral Doppler. Definity study was performed. The study was difficult due to patient's unable to lay left lateral and respiration. Cardiac History: Ordered for CHF Wall Scoring Baseline Score Index: 2.65 The following segments are akinetic: basal inferoseptal, basal inferior, basal inferolateral, basal anterolateral, mid inferoseptal, mid inferior, mid inferolateral, mid anterolateral, apical anterior, apical lateral and apex. The following segments are hypokinetic: basal anterior, basal anteroseptal, mid anterior, mid anteroseptal, apical septal and apical inferior. XCELERA [facility] Radiology Study observation (narrative) [facility] EKGon 10-13-2023 TRACEMASTERVUE [facility] Glucose Glucometer (BldC) [M ass/Vol]on 10-13-2023 Glucose [Mass/Vol] 173 mg/dL High 65-99 [facility] HEMOGLOBINon 10-13-2023 Hemoglobin (Bld) [Mass/Vol] 12.8 g/dL Normal 11.7-15.5 [facility] Comment on above: Performed By: #### P INR, 76563-0, 718-7, PLTCT, BMP, 67185-6 #### [facility] ([id number]) [address], [address] [place] [address] Hemoglobinon 10-13-2023 Hemoglobin (Bld) [Mass/Vol] 12.8 g/dL 11.7 - 15.5 g/dL [facility] Heparin unfractionated Chrom ogenic method Qn (PPP)on 10-13-2023 ANTI XA UFH 0.74 IU/mL High 0.30-0.70 [facility] Comment on above: Result Comment: Opti mal time for testing is 6 hrs post dosage This test is specific for monitoring patients on UFH, and is not recommended for use with other Anti-Xa medications. Performed By: #### P INR, 08542-1, 718-7, PLTCT, BMP, 64626-1 #### [facility] ([id number]) [address] [place] [address] Interpretation and review of laboratory results Abnormal [facility] ANTI XA UFH 0.69 IU/mL Normal 0.30-0.70 [facility] Comment on above: Result Comment: Opti mal time for testing is 6 hrs post dosage This test is specific for monitoring patients on UFH, and is not recommended for use with other Anti-Xa medications. Performed By: #### P INR, 94373-4, 718-7, PLTCT, BMP, 55348-4 #### [facility] ([id number]) [address] [place] [address] [facility] ANTI XA UFH 0.72 IU/mL High 0.30-0.70 [facility] Comment on above: Result Comment: Opti mal time for testing is 6 hrs post dosage This test is specific for monitoring patients on UFH, and is not recommended for use with other Anti-Xa medications. Performed By: #### P INR, 33713-4, 718-7, PLTCT, BMP, 12387-3 #### [facility] ([id number]) [address], [address] [place] [address] Interpretation and review of laboratory results Abnormal [facility] Ionized calciumon 10-13-2023 Calcium.ionized (Bld) [Mass/Vol] 3.9 mg/dL Low 4.5 - 5.3 mg/dL [facility] Calcium.ionized (Bld) [Mass/Vol] 3.8 mg/dL Low 4.5 - 5.3 mg/dL [facility] Ionized magnesiumon 10-13-19 Magnesium Ionized ISE (Bld) [Moles/Vol] 0.64 mmol/L 0.45 - 0.74 mmol/L [facility] Comment on above: NEW REFERENCE RANGE Magnesium Ionized ISE (Bld) [Moles/Vol] 0.24 mmol/L Critically low 0.45 - 0.74 mmol/L [facility] Comment on above: NEW REFERENCE RANGE MAGNESIUMon 10-13-2023 Magnesium [Mass/Vol] 1.1 mg/dL Low 1.8-2.6 [facility] Comment on above: Performed By: #### P INR, 00514-2, 718-7, PLTCT, BMP, 45083-7 #### [facility] ([id number]) [address] [place] [address] Magnesiumon 10-13-2023 Magnesium [Mass/Vol] 1.1 mg/dL Low 1.8 - 2.6 mg/dL [facility] Magnesium Ionized ISE (Bld) [Moles/Vol]on 10-13-2023 Magnesium [Moles/Vol] 0.64 mmol/L Normal 0.45-0.74 [facility] Comment on above: Result Comment: NEW REFERENCE RANGE Performed By: #### P INR, 17192-7, 718-7, PLTCT, BMP, 91692-4 #### [facility] ([id number]) [address], [address] [place] [address] Magnesium [Moles/Vol] 0.24 mmol/L Critically low 0.45-0.74 [facility] Comment on above: Result Comment: NEW REFERENCE RANGE Performed By: #### 3 8230-9, 91230-1 #### [facility] ([id number]) [address] [address], [address] [place] [address] Magnesium [Mass/Vol]on 10-12 Interpretation and review of laboratory results Abnormal [facility] Natriuretic peptide B [Mass/ Vol]on 10-13-2023 Natriuretic peptide B (Bld) [Mass/Vol] 1101 pg/mL High <100.0 [facility] Comment on above: Performed By: #### P INR, 29465-2, 718-7, PLTCT, BMP, 50402-0 #### [facility] ([id number]) [address] [facility], [address] [address] Interpretation and review of laboratory results Abnormal [facility] Natriuretic peptide B (Bld) [Mass/Vol] 1101 pg/mL High NINF - 100.0 pg/mL [facility] No Panel Informationon 10-12 [facility] Interpretation and review of laboratory results Abnormal [facility] Interpretation and review of laboratory results Abnormal [facility] Interpretation and review of laboratory results Abnormal [facility] PLATELET COUNT AND MPVon Platelet mean volume (Bld) [Entitic vol] 8.8 fL Normal 7-12 [facility] Comment on above: Performed By: #### P INR, 10395-3, 718-7, PLTCT, BMP, 11513-8 #### [facility] ([id number]) [address] [address], [address] [place] [address] Platelets (Bld) [#/Vol] 158 10*3/uL Normal 150-450 [facility] Comment on above: Performed By: #### P INR, 46121-4, 718-7, PLTCT, BMP, 23542-4 #### [facility] ([id number]) [address] [address] [place] [address] POTASSIUMon 10-13-2023 Potassium [Moles/Vol] 4.5 mmol/L Normal 3.5-5.0 [facility] Comment on above: Performed By: #### P INR, 11746-9, 718-7, PLTCT, BMP, 95045-0 #### [facility] ([id number]) [address] [address] Potassium [Moles/Vol] 3.1 mmol/L Low 3.5-5.0 [facility] Comment on above: Performed By: #### P INR, 15441-0, 718-7, PLTCT, BMP, 60148-0 #### [facility] ([id number]) [address] [address] PROTIME AND INRon 10-13-2023 INR Coag (PPP) [Relative time] 1.4 {INR} High 0.8-1.1 [facility] Comment on above: Performed By: #### P INR, 14874-7, 718-7, PLTCT, BMP, 01707-1 #### [facility] ([id number]) [address] [address] [place] [address] PT Coag (PPP) [Time] 16.6 s High 9.8-13.2 [facility] Comment on above: Performed By: #### P INR, 54026-7, 718-7, PLTCT, BMP, 54997-2 #### [facility] ([id number]) [address] [address] [place] [address] Platelet counton 10-13-2023 Platelet mean volume (Bld) [Entitic vol] 8.8 fL 7 - 12 fL [facility] Platelets (Bld) [#/Vol] 158 10*3/uL [facility] Potassiumon 10-13-2023 Potassium [Moles/Vol] 4.5 mmol/L 3.5 - 5.0 mmol/L [facility] Potassium [Moles/Vol] 3.1 mmol/L Low 3.5 - 5.0 mmol/L [facility] Potassium [Moles/Vol]on [facility] Interpretation and review of laboratory results Abnormal [facility] Protime & INRon 10-13-2023 INR Coag (PPP) [Relative time] 1.4 {INR} High [facility] PT Coag (PPP) [Time] 16.6 s High [facility] THYROID PROFILEon 10-13-2023 Free T4 [Mass/Vol] 1.15 ng/dL Normal 0.61-1.60 [facility] Comment on above: Performed By: #### P INR, 14580-2, 718-7, PLTCT, BMP, 61772-6 #### [facility] ([id number]) [address] [place] [address] TSH 1.80 uIU/mL Normal 0.49-4.67 [facility] Comment on above: Performed By: #### P INR, 44355-9, 718-7, PLTCT, BMP, 95161-4 #### [facility] ([id number]) [address] [facility] [address] [place] [address] TROPONIN Ion 10-13-2023 Troponin I.cardiac [Mass/Vol] 9.76 ng/mL Critically high 0.00-0.04 [facility] Comment on above: Result Comment: Concentrations greater than or equal to 0.05 ng/ml are considered elevated. Elevations of Troponin may be due to causes other than myocardial ischemia. Recommend serial Troponin testing be performed. Performed By: #### P INR, 95395-4, 718-7, PLTCT, BMP, 56018-6 #### [facility] ([id number]) [address] [place] [address] Troponin I.cardiac [Mass/Vol] 13.09 ng/mL Critically high 0.00-0.04 [facility] Comment on above: Result Comment: Concentrations greater than or equal to 0.05 ng/ml are considered elevated. Elevations of Troponin may be due to causes other than myocardial ischemia. Recommend serial Troponin testing be performed. Performed By: #### P INR, 13441-4, 718-7, PLTCT, BMP, 66912-8 #### [facility] ([id number]) [address] [place] [address] Troponin I.cardiac [Mass/Vol] 13.88 ng/mL Critically high 0.00-0.04 [facility] Comment on above: Result Comment: Concentrations greater than or equal to 0.05 ng/ml are considered elevated. Elevations of Troponin may be due to causes other than myocardial ischemia. Recommend serial Troponin testing be performed. Performed By: #### P INR, 30346-7, 718-7, PLTCT, BMP, 29460-0 #### [facility] ([id number]) [address] [place] [address] Thyroid profile includes TSH FT4on 10-13-2023 Free T4 [Mass/Vol] 1.15 ng/dL 0.61 - 1. 60 ng/dL [facility] TSH Qn 1.80 m[IU]/L [facility] Troponin Ion 10-13-2023 Troponin I.cardiac [Mass/Vol] 9.76 ng/mL Critically high 0.00 - 0.04 ng/mL [facility] Comment on above: Concentrations greater than or equal to 0.05 ng/ml are considered elevated. Elevations of Troponin may be due to causes other than myocardial ischemia. Recommend serial Troponin testing be performed. Troponin I.cardiac [Mass/Vol] 13.09 ng/mL Critically high 0.00 - 0.04 ng/mL [facility] Comment on above: Concentrations greater than or equal to 0.05 ng/ml are considered elevated. Elevations of Troponin may be due to causes other than myocardial ischemia. Recommend serial Troponin testing be performed. Troponin I.cardiac [Mass/Vol] 13.88 ng/mL Critically high 0.00 - 0.04 ng/mL [facility] Comment on above: Concentrations greater than or equal to 0.05 ng/ml are considered elevated. Elevations of Troponin may be due to causes other than myocardial ischemia. Recommend serial Troponin testing be performed. Troponin I.cardiac [Mass/Vol ]on 10-13-2023 Interpretation and review of laboratory results Abnormal [facility] Interpretation and review of laboratory results Abnormal [facility] aPTT Coag (PPP) [Time]on aPTT Coag (Bld) [Time] 48 s High 26-37 [facility] Comment on above: Performed By: #### P INR, 37749-8, 718-7, PLTCT, BMP, 23795-1 #### [facility] ([id number]) [address] [facility] [address] [place] [address] Glucose Glucometer (BldC) [M ass/Vol]on 10-12-2023 Glucose [Mass/Vol] 173 mg/dL High 65 - 99 mg/dL [facility] Interpretation and review of laboratory results Abnormal [facility] Carotid arteries - bilate ralon 10-06-2023 Previous: [...] previous report no significant changes were noted. PM CARDIOVASCULAR Sal Morris M D - 10/06/2023 Previous: Previous carotid [...] previous report no significant changes were noted. [facility] Radiology Study observation (narrative) [facility] US Carotid arteries - bilate ralOrdered By: Sal Morris on 10-06-2023 [facility] Work Phone: Blood Urea Nitrogenon 2023 Urea nitrogen [Mass/Vol] 24 mg/dL Normal 02-04 [facility] Comment on above: Performed By: #### B UN, CREAT #### [address] Creatinineon 01-24-2024 Creatinine [Mass/Vol] 1.07 mg/dL Normal 0.60-1.20 [facility] Comment on above: Performed By: #### B UN, CREAT #### [facility] [address] Creatinine Clr Calc Pharmacy 43.30 Normal [facility] Comment on above: Result Comment: PERF ORMED BY: [place] [address] PATHOLOGIST [employer] LAURE BRANHAM M.D. Performed By: #### B UN, CREAT #### [facility] [address] GFR/1.73 sq M.predicted MDRD (S/P/Bld) [Vol rate/Area] 56.229 mL/min/{1.73_m2} Normal [facility] Comment on above: Performed By: #### B UN, CREAT #### [facility] [address] [place] [address] [place] BNPon 10-15-2022 Natriuretic peptide B (Bld) [Mass/Vol] 732.0 pg/mL Normal <=900.0 [facility] Comment on above: Performed By: #### C CONNER, ELEC, BNP, BUN, TSH #### [facility] [address] [address] [address] Feliz Hilton BUNon 10-15-2022 Urea nitrogen [Mass/Vol] 31.0 mg/dL Critically high 7.0-18.0 [facility] Comment on above: Performed By: #### C CONNER, ELEC, BNP, BUN, TSH #### [facility] [address] [address] [address] Feliz Hilton CBC AUTO DIFFon 10-15-2022 BASO # 0.0 103/ul Normal 0.0-0.1 [facility] Comment on above: Performed By: #### C BC ####[facility] [address] [place], [place] [address]ZzDr. Feliz Hilton Basophils/100 WBC (Bld) 0.8 % Normal 0.2-2.0 [facility] Comment on above: Performed By: #### C BC ####[facility] [address] [address]Dr[address] Feliz Hilton EO # 0.1 103/ul Normal 0.0-0.7 [facility] Comment on above: Performed By: #### C BC ####[facility] [address] [address]Dr. Feliz Hilton Eosinophils/100 WBC (Bld) 2.3 % Normal 0.9-7.0 [facility] Comment on above: Performed By: #### C BC ####[facility] [address] [place], [place] [address]Dr. Feliz Hilton Erythrocyte distribution width (RBC) [Ratio] 19.8 % Critically high 11.0-15.0 [facility] Comment on above: Performed By: #### C BC ####[facility] [address] [place], [place] [address]Dr. Feliz Hilton Hematocrit (Bld) [Volume fraction] 36.1 % Normal 36.0-48.0 [facility] Comment on above: Performed By: #### C BC ####[facility] [address] [place], [place] [address]Dr. Feliz Hilton Hemoglobin (Bld) [Mass/Vol] 11.1 g/dL Critically low 12.0-16.0 [facility] Comment on above: Performed By: #### C BC ####[facility] [address] [place], [place] [address]Dr. Feliz Hilton IG # 0.01 10e3/ul Normal 0.00-0.03 [facility] Comment on above: Performed By: #### C BC ####[facility] [address] [place], [place] [address]Dr. Feliz Hilton IG % 0.2 % Normal 0.0-0.5 [facility] Comment on above: Performed By: #### C BC ####[facility] [address] [place], [place] [address]Dr. Mónicaaureliano Hilton LYMPH # 2.1 103/ul Normal 1.2-3.8 [facility] Comment on above: Performed By: #### C BC ####[facility] [address] [id number]. Feliz Hilton Lymphocytes/100 WBC (Bld) 43.1 % Normal 20.5-60.0 [facility] Comment on above: Performed By: #### C BC ####[facility] [address] [id number][address] Feliz Hilton MANUAL DIFF REQ NO Normal [facility] Comment on above: Performed By: #### C BC ####[facility] [address] [id number]. Feliz Hilton MCH (RBC) [Entitic mass] 28.7 pg Normal 26.7-34.0 [facility] Comment on above: Performed By: #### C BC ####[facility] [address] [place] [address]Dr. Feliz Hilton MCHC (RBC) [Mass/Vol] 30.7 g/dL Normal 29.9-35.2 [facility] Comment on above: Performed By: #### C BC ####[facility] Y[address]mtvfahz[address] [place] [id number]. Feliz Hilton MCV (RBC) [Entitic vol] 93.3 fL Normal 81.0-99.0 [facility] Comment on above: Performed By: #### C BC ####[facility] Bl[address]vdsum[address] [place], [place] [id number]. Feliz Hilton MONO # 0.4 103/ul Normal 0.3-0.8 [facility] Comment on above: Performed By: #### C BC ####[facility] [address]jemmzkvg[address] [place] [id number]. Feliz Hilton Monocytes/100 WBC (Bld) 9.0 % Normal 1.7-12.0 [facility] Comment on above: Performed By: #### C BC ####[facility] [address] [place], [place] [id number]. Feliz Hilton NEUT # 2.1 103/ul Normal 1.4-6.5 [facility] Comment on above: Performed By: #### C BC ####[facility] Sotpxnueco[address] [place] [id number]. Feliz Hilton Neutrophils/100 WBC (Bld) 44.6 % Normal 43.0-75.0 [facility] Comment on above: Performed By: #### C BC ####[facility] W[address]zyrnkam[address] [place] [id number]. Feliz Hilton Platelet mean volume (Bld) [Entitic vol] 9.5 fL Normal 9.5-13.5 [facility] Comment on above: Performed By: #### C BC ####[facility] T[address]kepl[address]fq4[address] [place] [id number]. Feliz Hilton PLT 273 103/ul Normal 150-450 [facility] Comment on above: Performed By: #### C BC ####[facility] [address]zczchf[address] [place] [id number]. Feliz Hilton RBC 3.87 106/ul Critically low 4.20-5.40 [facility] Comment on above: Performed By: #### C BC ####[facility] O[address]euiikc[address] [place] [id number]. Feliz Hilton WBC 4.8 103/ul Normal 4.0-11.0 [facility] Comment on above: Performed By: #### C BC ####[facility] Vz[address]vkvseu[address] [place] [id number]. Feliz Hilton CREATININEon 10-15-2022 Creatinine [Mass/Vol] 1.02 mg/dL Normal 0.55-1.02 [facility] Comment on above: Performed By: #### C CONNER, ELEC, BNP, BUN, TSH #### [facility] [address] [place] [address] [address] Feliz Hilton EGFR-AF EAST [place] >60 Normal >=60 [facility] Comment on above: Performed By: #### C CONNER, ELEC, BNP, BUN, TSH #### [facility] [address] [place] [address] [address] Feliz Hilton EGFR-NON AF EAST [place] 54 mL/min/1.73m2 Critically low >=60 [facility] Comment on above: Performed By: #### C CONNER, ELEC, BNP, BUN, TSH #### [facility] [address] [place] [address] Dr. Feliz Hilton ELECTROLYTESon 10-15-2022 Anion gap [Moles/Vol] 14.7 mmol/L Normal [facility] Comment on above: Performed By: #### C CONNER, ELEC, BNP, BUN, TSH #### [facility] [address] [place] [address] Dr. Feliz Hilton Chloride [Moles/Vol] 109 mmol/L Critically high 98-107 [facility] Comment on above: Performed By: #### C CONNER, ELEC, BNP, BUN, TSH #### [facility] [address] [place] [address] Dr. Feliz Hilton CO2 [Moles/Vol] 20.6 mmol/L Critically low 21.0-32.0 [facility] Comment on above: Performed By: #### C OCNNER, ELEC, BNP, BUN, TSH #### [facility] [address] [place] [address] Dr. Feliz Hilton Potassium [Moles/Vol] 5.3 mmol/L Critically high 3.5-5.1 [facility] Comment on above: Performed By: #### C CONNER, ELEC, BNP, BUN, TSH #### [facility] [address] [place] [address] Dr. Feliz Hilton Sodium [Moles/Vol] 139 mmol/L Normal 136-145 [facility] Comment on above: Performed By: #### C CONNER, ELEC, BNP, BUN, TSH #### [facility] [address] [place] [address] Dr. Feliz Hilton TSHon 10-15-2022 TSH 3.265 uIU/mL Normal 0.358-3.740 [facility] Comment on above: Performed By: #### C CONNER, ELEC, BNP, BUN, TSH #### [facility] [address] [place] [address] Dr. Feliz Hilton BNPon 07-16-2022 Natriuretic peptide B (Bld) [Mass/Vol] 1093.0 pg/mL Critically high <=900.0 [facility] Comment on above: Performed By: #### T SH, LIPID, ELEC, LIVER, CREA, BUN, BNP ####[facility] [address] [place] [id number]. Feliz Hilton BUNon 07-16-2022 Urea nitrogen [Mass/Vol] 23.0 mg/dL Critically high 7.0-18.0 [facility] Comment on above: Performed By: #### T SH, LIPID, ELEC, LIVER, CREA, BUN, BNP ####[facility] [address]fe[address] [place] [phone]. Feliz Hilton CBC AUTO DIFFon 07-16-2022 BASO # 0.1 103/ul Normal 0.0-0.1 [facility] Comment on above: Performed By: #### C BC #### [facility] [address] [place] [address] Dr. Feliz Hilton Basophils/100 WBC (Bld) 1.3 % Normal 0.2-2.0 [facility] Comment on above: Performed By: #### C BC #### [facility] [address] [place] [address] Dr. Feliz Hilton EO # 0.3 103/ul Normal 0.0-0.7 [facility] Comment on above: Performed By: #### C BC #### [facility] [address] [place] [address] [address] Feliz Hilton Eosinophils/100 WBC (Bld) 7.2 % Critically high 0.9-7.0 [facility] Comment on above: Performed By: #### C BC #### [facility] [address] [place] [address] Dr. Feliz Hilton Erythrocyte distribution width (RBC) [Ratio] 23.4 % Critically high 11.0-15.0 [facility] Comment on above: Performed By: #### C BC #### [facility] [address] [place] [address] Dr. Feliz Hilton Hematocrit (Bld) [Volume fraction] 30.8 % Critically low 36.0-48.0 [facility] Comment on above: Performed By: #### C BC #### [facility] [address] [place] [address] Dr. Feliz Hilton Hemoglobin (Bld) [Mass/Vol] 9.1 g/dL Critically low 12.0-16.0 [facility] Comment on above: Performed By: #### C BC #### [facility] [address] [place] [address] Dr. Feliz Hilton IG # 0.01 10e3/ul Normal 0.00-0.03 [facility] Comment on above: Performed By: #### C BC #### [facility] [address] [place] [address] Dr. Feliz Hilton IG % 0.3 % Normal 0.0-0.5 [facility] Comment on above: Performed By: #### C BC #### [facility] [address] [place] [address] Dr. Feliz Hilton LYMPH # 1.5 103/ul Normal 1.2-3.8 [facility] Comment on above: Performed By: #### C BC #### [facility] [address] [place] [address] Dr. Feliz Hilton Lymphocytes/100 WBC (Bld) 37.3 % Normal 20.5-60.0 [facility] Comment on above: Performed By: #### C BC #### [facility] [address] [place] [address] Dr. Feliz Hilton MANUAL DIFF REQ NO Normal [facility] Comment on above: Performed By: #### C BC #### [facility] [address] [place] [address] Dr. Feliz Hilton MCH (RBC) [Entitic mass] 23.9 pg Critically low 26.7-34.0 [facility] Comment on above: Performed By: #### C BC #### [facility] [address] [place] [address] Dr. Feliz Hilton MCHC (RBC) [Mass/Vol] 29.5 g/dL Critically low 29.9-35.2 [facility] Comment on above: Performed By: #### C BC #### [facility] [address] [place] [address] [address] Feliz Hilton MCV (RBC) [Entitic vol] 81.1 fL Normal 81.0-99.0 [facility] Comment on above: Performed By: #### C BC #### [facility] [address] [place] [address] [address] Feliz Hilton MONO # 0.4 103/ul Normal 0.3-0.8 [facility] Comment on above: Performed By: #### C BC #### [facility] [address] [place] [address] [address] Feliz Hilton Monocytes/100 WBC (Bld) 10.3 % Normal 1.7-12.0 [facility] Comment on above: Performed By: #### C BC #### [facility] [address] [place] [address] [address] Feliz Hilton NEUT # 1.7 103/ul Normal 1.4-6.5 [facility] Comment on above: Performed By: #### C BC #### [facility] [address] [place] [address] [address] Feliz Hilton Neutrophils/100 WBC (Bld) 43.6 % Normal 43.0-75.0 [facility] Comment on above: Performed By: #### C BC #### [facility] [address] [place] [address] [address] Feliz Hilton Platelet mean volume (Bld) [Entitic vol] 9.0 fL Critically low 9.5-13.5 [facility] Comment on above: Performed By: #### C BC #### [facility] [address] [place] [address] [address] Feliz Hilton PLT 285 103/ul Normal 150-450 [facility] Comment on above: Performed By: #### C BC #### [facility] [address] [place] [address] [address] Feliz Hilton RBC 3.80 106/ul Critically low 4.20-5.40 [facility] Comment on above: Performed By: #### C BC #### [facility] [address] [place] [address] [address] Feliz Hilton WBC 3.9 103/ul Critically low 4.0-11.0 [facility] Comment on above: Performed By: #### C BC #### [facility] [address] [place] [address] [address] Feliz Hilton CREATININEon 07-16-2022 Creatinine [Mass/Vol] 0.87 mg/dL Normal 0.55-1.02 [facility] Comment on above: Performed By: #### T SH, LIPID, ELEC, LIVER, CREA, BUN, BNP ####[facility] [address] [place] [address]DrJuan F Hilton EGFR-AF EAST [place] >60 Normal >=60 [facility] Comment on above: Performed By: #### T SH, LIPID, ELEC, LIVER, CREA, BUN, BNP ####[facility] [address] [place] [address]DrJuan F Hilton EGFR-NON AF EAST [place] >60 Normal >=60 [facility] Comment on above: Performed By: #### T SH, LIPID, ELEC, LIVER, CREA, BUN, BNP ####[facility] [address] [place] [address]Dr. Feliz Hilton D-DIMERon 07-16-2022 D-DIMER 0.89 mg/L FEU Critically high <=0.59 [facility] Comment on above: Performed By: #### D DIM #### [facility] [address] [place] [address] [address] Feliz Hilton D-DIMER COMMENTS SEE BELOW Normal [facility] Comment on above: Result Comment: Incr [...] hospitalization. Performed By: #### D DIM #### [facility] [address] [place] [address] [address] Feliz Hilton ELECTROLYTESon 07-16-2022 Anion gap [Moles/Vol] 13.9 mmol/L Normal [facility] Comment on above: Performed By: #### T SH, LIPID, ELEC, LIVER, CREA, BUN, BNP ####[facility] [address] [place] [address]Dr. Feliz Hilton Chloride [Moles/Vol] 111 mmol/L Critically high 98-107 [facility] Comment on above: Performed By: #### T SH, LIPID, ELEC, LIVER, CREA, BUN, BNP ####[facility] [address] [place] [address]Dr. Feliz Hilton CO2 [Moles/Vol] 21.4 mmol/L Normal 21.0-32.0 [facility] Comment on above: Performed By: #### T SH, LIPID, ELEC, LIVER, CREA, BUN, BNP ####[facility] [address] [place] [address]Dr. Feliz Hilton Potassium [Moles/Vol] 4.3 mmol/L Normal 3.5-5.1 [facility] Comment on above: Performed By: #### T SH, LIPID, ELEC, LIVER, CREA, BUN, BNP ####[facility] [address] [place] [address]Dr. Feliz Hilton Sodium [Moles/Vol] 142 mmol/L Normal 136-145 [facility] Comment on above: Performed By: #### T SH, LIPID, ELEC, LIVER, CREA, BUN, BNP ####[facility] [address] [place] [address]Dr. Feliz Hilton GLYCOHEMOGLOBIN A1Con 2022 ADA RECOMMENDATION SEE BELOW Normal [facility] Comment on above: Result Comment: ADA RECOMMENDED LIMIT 4.0 - 6.0 ADA THERAPEUTIC TARGET < 7.0 ACTION SUGGESTED > 7.0 Performed By: #### A 1C ####[facility] [address] [place], [place] [id number]. Feliz Hilton Glucose [Mass/Vol] 120 mg/dL Normal [facility] Comment on above: Performed By: #### A 1C ####[facility] [address] [place] [address]Dr. Feliz Hilton HbA1c (Bld) [Mass fraction] 5.8 % Normal 4.5-6.2 [facility] Comment on above: Performed By: #### A 1C ####[facility] [address] [place] [address]Dr. Feliz Hilton LIPID PROFILEon 07-16-2022 CHOL-HDL RATIO NORM SEE BELOW Normal [facility] Comment on above: Result Comment: 3.3 - 4.4 LOW RISK 4.4 - 7.1 AVERAGE RISK 7.1 - 11.0 MODERATE RISK >11.0 HIGH RISK Performed By: #### T SH, LIPID, ELEC, LIVER, CREA, BUN, BNP #### [facility] [address] [place] [address] Dr. Feliz Hilton Cholesterol [Mass/Vol] 107 mg/dL Normal <=200 [facility] Comment on above: Performed By: #### T SH, LIPID, ELEC, LIVER, CREA, BUN, BNP #### [facility] [address] [place] [address] Dr. Feliz Hilton Cholesterol in HDL [Mass/Vol] 52 mg/dL Normal 40-60 [facility] Comment on above: Performed By: #### T SH, LIPID, ELEC, LIVER, CREA, BUN, BNP #### [facility] [address] [place] [address] Dr. Feliz Hilton Cholesterol in LDL [Mass/Vol] 30.2 mg/dL Normal [facility] Comment on above: Performed By: #### T SH, LIPID, ELEC, LIVER, CREA, BUN, BNP #### [facility] [address] [place] [address] Dr. Feliz Hilton Cholesterol.total/ Cholesterol in HDL [Mass ratio] 2.1 {ratio} Normal [facility] Comment on above: Performed By: #### T SH, LIPID, ELEC, LIVER, CREA, BUN, BNP #### [facility] [address] [place] [address] [address] Feliz Hilton HDL NORMAL > or = 60 mg/dl - LO W CARDIOVASCULAR RISK <40 mg/dl - HIGH CARDIOVASCULAR RISK Normal [facility] Comment on above: Performed By: #### T SH, LIPID, ELEC, LIVER, CREA, BUN, BNP #### [facility] [address] [place] [address] [address] Feliz Hilton LDL CALC NORMAL SEE BELOW Normal [facility] Comment on above: Result Comment: <100 mg/dl OPTIMAL 100 - 129 mg/dl NEAR OR ABOVE OPTIMAL 130 - 159 mg/dl BORDERLINE HIGH 160 - 189 mg/dl HIGH >190 mg/dl VERY HIGH Performed By: #### T SH, LIPID, ELEC, LIVER, CREA, BUN, BNP #### [facility] [address] [place] [address] Dr. Feliz Hilton Triglyceride [Mass/Vol] 124 mg/dL Normal <=150 [facility] Comment on above: Performed By: #### T SH, LIPID, ELEC, LIVER, CREA, BUN, BNP #### [facility] [address] [place] [address] Dr. Feliz Hilton VLDL CALC 24.8 mg/dL Normal [facility] Comment on above: Performed By: #### T SH, LIPID, ELEC, LIVER, CREA, BUN, BNP #### [facility] [address] [place] [address] Dr. Feliz Hilton LIVER PROFILEon 07-16-2022 Albumin [Mass/Vol] 2.6 g/dL Critically low 3.4-5.0 [facility] Comment on above: Performed By: #### T SH, LIPID, ELEC, LIVER, CREA, BUN, BNP #### [facility] [address] [place] [address] Dr. Feliz Hilton Albumin/Globulin [Mass ratio] 0.8 {ratio} Normal [facility] Comment on above: Performed By: #### T SH, LIPID, ELEC, LIVER, CREA, BUN, BNP #### [facility] [address] [place] [address] Dr. Feliz Hilton ALP [Catalytic activity/Vol] 63 U/L Normal 46-116 [facility] Comment on above: Performed By: #### T SH, LIPID, ELEC, LIVER, CREA, BUN, BNP #### [facility] [address] [place] [address] Dr. Feliz Hilton ALT [Catalytic activity/Vol] 18 U/L Normal 14-59 [facility] Comment on above: Performed By: #### T SH, LIPID, ELEC, LIVER, CREA, BUN, BNP #### [facility] [address] [place] [address] Dr. Feliz Hilton AST [Catalytic activity/Vol] 23 U/L Normal 15-37 [facility] Comment on above: Performed By: #### T SH, LIPID, ELEC, LIVER, CREA, BUN, BNP #### [facility] [address] [place] [address] Dr. Feliz Hilton BILI, CONJUGATED 0.1 mg/dL Normal 0.0-0.2 [facility] Comment on above: Performed By: #### T SH, LIPID, ELEC, LIVER, CREA, BUN, BNP #### [facility] [address] [place] [address] Dr. Feliz Hilton Bilirubin [Mass/Vol] 0.1 mg/dL Critically low 0.2-1.0 [facility] Comment on above: Performed By: #### T SH, LIPID, ELEC, LIVER, CREA, BUN, BNP #### [facility] [address] [place] [address] Dr. Feliz Hilton Globulin (S) [Mass/Vol] 3.1 g/dL Normal [facility] Comment on above: Performed By: #### T SH, LIPID, ELEC, LIVER, CREA, BUN, BNP #### [facility] [address] [place] [address] Dr. Feliz Hilton Protein [Mass/Vol] 5.7 g/dL Critically low 6.4-8.2 [facility] [place] Comment on above: Performed By: #### T SH, LIPID, ELEC, LIVER, CREA, BUN, BNP #### [facility] [address] [address] [address] Feliz Hilton SED RATE WESTERGRENon 2022 SED RATE 14 mm/hr Normal <=30 [facility] Comment on above: Performed By: #### S EDR ####[facility] [address] [place] [id number]. Feliz Hilton TSHon 07-16-2022 TSH 5.167 uIU/mL Critically high 0.358-3.740 [facility] Comment on above: Performed By: #### T SH, LIPID, ELEC, LIVER, CREA, BUN, BNP ####[facility] [address]hub[address] [place] [id number]. Feliz Hilton VITAMIN D 25 OHon 07-16-2022 VIT D 25-OH 22.4 ng/mL Normal [facility] Comment on above: Performed By: #### V ITAD ####[facility] [address] [place] [id number]. Feliz Hilton VIT D RANGES SEE BELOW Normal [facility] Comment on above: Result Comment: <20 ng/mL Vit D deficient 20 - <30 ng/mL Vit D insufficient 30 - 100 ng/mL Vit D sufficient >100 ng/mL Potential Toxicity Performed By: #### V ITAD ####[facility] [address] [place] [id number]. Feliz Hilton MG MAMM SCREEN 3D RELL CADon 06-14-2022 MG MAMM SCREEN 3D RELL CAD Patient: ASHVIN RENE Exam Date: 06/14/2022 : 1955 Gender:F Ordering : DR TUSHAR SOLANO D.O. Admission #: [id number] Family : Order #: [id number] CLICK HERE TO VIEW EXAM RADIOLOGY REPORT [...] No Treatments None Family Cancers None LOCATION: [facility] BREAST COMPOSITION: Scattered areas fibroglandular density. FINDINGS: [...] MD on 06/14/2022 at 14:19 Normal [facility] XR hand RT min 3V*on 022 XR hand RT min 3V* [facility] Other XR hand RT min 3V* [facility] Other XR hand RT min 3V* [address] [place] [address] [employer] Other XR hand RT min 3V* [place] [address] [employer] Other XR hand RT min 3V* XRay Report [employer] Other XR hand RT min 3V* Signed [employer] Other XR hand RT min 3V* Patient: Annette Rene MR#: [id number] [employer] Other XR hand RT min 3V* 20 [employer] Other XR hand RT min 3V* : 1955 Acct:[id number] [employer] Other XR hand RT min 3V* Age/Sex: 66 / F ADM Date: 05/20/22 [employer] Other XR hand RT min 3V* [facility] CLI [employer] Other XR hand RT min 3V* 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 [employer] Other XR hand RT min 3V* No fracture, disloca tion or focal soft tissue abnormality seen. Degenerative changes and [employer] Other XR hand RT min 3V* atherosclerosis. [employer] Other XR hand RT min 3V* X R/XR hand RT min 3V* [employer] Other XR hand RT min 3V* IMPRESSION:No acute findings [employer] Other XR hand RT min 3V* Impression dictated by: Rodrick Galvin M.D.05/20/2022 11:13 AM [employer] Other XR hand RT min 3V* Dictation Location: [place] [address] [employer] Other XR hand RT min 3V* Transcribed By: HERNAN 05/20/22 1113 [employer] Other XR hand RT min 3V* Dictated By: Amadou Galvin DO 05/20/22 1111 Located [facility] rumr Other XR hand RT min 3V* Signed By: Located Within [facility] rumr Other XR hand RT min 3V* 05/20/22 1113 [facility] rumr Other Coding Summaryon 08-21-2021 Coding Summary HTMLBase 64 BgtyckwvXSd1oKo+PGhlYWQ+PE 4DDRZkO51nfTCzfZ8IR6xZGS2F QWZMKTTIYL2JBC1eaCK4TAaqV1 VybiAv WiyaxFThOV82LPt9AER7cFotGE hryG2tbIZmP7g9QlYjSX17xE00 ZNhhYABpDnK6UkMxeyhrxNFh P0afYkHcpWCnUdv+PHRhYmxlIH nbJCSaSDiySQKcEcTpbHydBU2t Fd1cYPOvJJMjyPryvQCxKfAx o3noFWGpOKxvAI4oxLuuG4IbpX K7NZZld5y0Oa03uVZ+PHRkIHN0 ySsxRWxic612SeWrm8jpPHN9 bCEbLVgzMMK5W98oi3W8BTGgBH YmEWB0uKR9xU0ayRpzqqpoF8Ie jNInVlQ0UCU3oPRhyH6sfRgq udajtI3tCij+J76ZJH8MZBBBRS 0JXse6O1JzAhkenQY+HE29AECz WB53sYGlgDYdh5yjuLs3EaGo IYGpCNK4rSoiQKivv4CqYTFrK9 6ciOXdw4B6OPDduYlqhJQvTwJr bMR5nS2vBBjzhdjzu4ezknkk Bpelc1zibz28zP74B65iZRjpYJ QmLVZ9NGQtAWPldZjenz9ifM8j Ii8+PLdqd9wql8fcbHu0DbOq EYUwznYebPjeINH9y2IdMg22D0 HjsDydx8PnLor4cc59eSSri2W4 dVL8FAwcWKPjpP8hIBspJnC3 BTYkJnGciF97xMXrCZxwGc2vvB wmxHbyDD0lUPPxemyxBZPfpI3i LTNelSGddNosNK4vIHOxgmbn l781HoIgAYX5PUQvdUMpB5JsoB 5wOwWeVLDcIJWgY9TslYBxOFcp G044AXryAxG9VBWhdoXtV6Ll JNEnhZkpUwW3v8V8Fk5Fh6Jmqw asQFL0YDioYFFvTeY3ImNuSdU6 M8HlHpm8XKMzfTotVH5sU1Dc KJXghdwcdmrqnJU2ACFaIZVqiF 17tHGsIXhtDi4ro3L3b036VPWv TVPnsU95Hn4cjQcpIFIotJJV kY8systbt0vvvvtsUdEjMMUlYW s9MAb1RRGxeXaqClFxSKX7KyI5 OTP3uXDssL7jpMvmdsipcK9h Oyc+S50zaS0rZBE7PEF3pthkXJ MuyfTgGY26DL98C3GsMrqwqLNv bGU+FUKxgtHgfMgrYZ5wJcAw z6ckp4IlNCbpP3HhONOnGQssJi b8YIBgWMF1bWR7lX0fLDJaNYom x8H7sHR8B2XvgpGdpa1mf2kb CSOgAKfdT73ceIIdn9O6MZMprD V9KGDlmNvkMlKafL67Jmm+PGNv gCrkd0FnZkizk2ehs5udyFh8 LmDjLYMdjjQpyVamKGK4a6OlPa 98G27ePTkpSUXxPYEdGTZlJYFt lJfvlm8gzQ5gZi7+PGNvbCB3 tNX9xX6iTJJpHsR8CRbhR368Kl ZvzCOlZxpzm7bxo4pgdHy9MbLw HPTyxwPdoDtbLGB2y9WuOy43 K74oBImnYTUlJHQlXTLzBUXzgL zcyu5aqG6kWv6+UZ8dl9dshm97 kK98fPF+QFYyFFV1gCxmJVaz TFTehN0gIHmxLbS3RSKrEbXwrW 08mBIaADslRg0qwIjtdGffHI9t VHSrfwfrq328WcJca8wmIXTd nWYjOCjlIGS7Z91fl2C8MOVcQQ QmWBS6tMF4pX9ouSqdygfwjWPr oHokepAtjWdaKOszWWtrG967 IHRvcDsnPlBhdGllbnQgTmFtZT u6Y3RqVrf9FDAnaRacQN2laJAt SXntLy1ocAsczBphBA7lSZMr fqhno765HuFud5pePDLqfXTiEZ lcTIS6A37nz9G6PCChYFJgOQH7 uPM8lY9usPgxctoicYJvcWzz maXogXlsTHntFRhkG677DPFgmC ysMxFgebPdUEVewSL9KF39WV17 tBGte9O9xIR5K6WfAPIausnx edxhmHI3GGGtMSKykT19Rm2igR niKb5vNOTzVFC6RTOnkYFcH6Bu wK5oHuVgWBZsUQYdN0RjyGUu JUkcS003JJanClB7RTQtxpAfD3 CaJWBtgBirZcX9d5I3Jt5OH2S2 LQ97WF05rLAdj3A9dDO3H8Lz IBOudeexpplogST2GCDuMOQtaF 08Ab9orTatXf9gYTCiDLG6TUAr gGFfA5QemW6nGjVbFVPcJWBd S3JwgKAsCJirP445TAbeWdX7EF LjvoRlD9ChXMXamZfoHuC3c2S5 Wz6CHBi7TD82HB92wAXgc1Q9 tUS8F4TrUDBcvkzmgfeulHZ0AX LqUWQcxP79Av9rrOcmYv0bQDVa SDZ6BGWulREpT8KowI8iPeSt ZWOzKJPnO7MflHEbJMciG201CB gwYzR0EEDvojWnB4WoOGFdvCnq CbZ3n2H9Pl5LGJNwRK49VCI4 rFV7LI96DX30D2NrOphfqJHklL U+PHRhYmxlIHdpZHRoPScxMDAl YdNauUuuOZ8zBo0sNEOrBCBi zJzftYEmOcZlr7ptPZAcWWctET 5fxQvrV3QguOG1NVCwp9y1Fa06 I55lG1HuyMV+OQIkfLC5eHH3 vA3gGzVrIpC2GKuwM148SeWepI JiPregl3gcx1zjvIl6EtD9NGSn itZcwGvpGLP0c1RiMb89Y51g IHdpZHRoPSIxNSUiIHZhbGlnbj 0acZ3oLb5+IEZmhWS2kCZ4bF1j EtUzLxK0EAtpC438VoKlcGGx Mxbrk5scr2foqQp6RvAmIWTcll QkhFoyMZX0v3IfNj77Z2JsbGhp s9XqRsf0sp23jSRsd7U0xZV4 D6EtBNNbxiisoGZviXdbJD2oBN DxhnodWIWkxF9oRAEuH1p4DhYb UnT0BYnoD6KaosE7EIJwmLFp ZKkzUCI0Z17ky0S5LNWnPMUcAR W5oAP7lK5jkFwrrcwgjISprYfm maHuvOrtKOufRZlaT103IIDt sDjrVPRyiX0uSHVtqYYdtUsgNN 4yCIZncgmbStfKQr2JVgpfC1BO VJ3vVWaczJT+WLZlQBV6kHbn GZlnAYGmpY3aIEIwJ8d6NyQyRd A8CMcpX2RgSLFdglfkZp16gB8t JqZdLyQ8LGtpG6MgfzA0XZWu oEGjGMqjCTD0K60fz4S8XSUrNN GlURT8zYX5xR2prIlpepideYEf rYgmvaFkeFmlEAwkXWhbL766 UBMnuQomGmW3EhG1EuO5MUL4T9 WcVlj0OPLkrJcyVZ9asWWgGXal Om2egBiunGlxNL5yEXMndvxh LELuhY8wXXTuxCZrgThfPL8jTZ Curxnun426QlKmIGX5OJFkrTTo I5BxkD1wOsRpYWVbNGWgH3An zEXlSEzxM377AMwwVwA5ZBMyaw GdQ2QkYDCicOwcBoB5h5D6Ds75 NyBZZWFyczwvdGQ+PHRkIHN0 tNolBWfwVBFizW8nYYYhR9t7Xp JkAoB7SSonJ6LbLJEgugccOt61 qZ0fIgByFhE3FEsuT1GshuL8 MUXlqSQuDKdwRZX2O77kp2N3FG NjUUPyUWB3xPB3uU3imUiiqwhh bGVmdDsgdmVydGljYWwtYWxp S454BQTirVdaEjGFWGTXKJtanQ Q+VAEiYVW0cQdtEDelOFGadF2i TRPdP8t9QgNaGhM0DFqpK0Zu KCXzubaxRs39eT2pZqCpTxG8IC oqO5IrczH1UEFshVAkEWcgFUC2 A78ct4U5XUItNMIgIRM0bLO5 nA1phRubiadjkSUzkEikypTwlS hsLRwiKGigN709DFPdtBosYf5x d6UyjzZ2uX4kSR68ZG52P6Up PjwvdGFibGU+PHRhYmxlIHdpZH ImUXgeTEVcSwMetDqhMH3vIm3y KGQvXTTmkTelgOVqRvKwb3hx JRCkXNgtSD0ysPjdT2DvuMI5XV Ruh1n1Yi39C87uK3TtiPQ+PGNv sTS3hCM3bS1zSjPcLtJ2GQgs B951MvSnzWKbQdyrx3vet8rhbO j2LsVuDATysdWefNgtJHS1e9Rd Pk17J87aTZatBKCpIPXeBYFi EOWedDgokk3xgX4eQo4+PGNvbC A7fYF0mQ6fBlQkGvW6JOffE227 QeGynMKaRtbdX37sZ2NzgEO+ FUYiUth7JGZitJqrPC9tqUGlJI juHz5yZHE9RuYoKxUgUNwfW2Gy UICmuakjqydvbMQ5KUTdJSUo fK47Iv4ykTgiIn4eIZZtUWA4AX ThyYSuK1UypG5fMvBuRBQuIYDa N6RioDYjFTgeT367XVxpGdZ3 UIAtjaQbX8BaQGIuuZuaXuU1a6 T1Yx5SsLbrfOUsCM2nZsUwZDx2 J6JaZvp9IFNmmAoyKM4ugKAd GGnkCr3egDekaJgbZR5aSBKvdo rgm409PmHej2rrUWUhvHFzPDqr DTT2G29qc3P9GPQwYYZiJLH6 jIU2eB0neKruuvbqrBWygJmsan GvmYcaPPlsWGasV254LVBqzWus OfAFVak3E1BwEpy2ENLqhYri SP5eoRDoKOthMo1llArhlBlxXJ 5yMIEgrwjlz888QjJpg1wkKSUy tTEiXRilITK0N09rp5J8GWSj RBQcQUQ2xXD2cR5rzKmlsyxmxJ IvnHvayvOfbFtkUEmwZFctR316 CYAlaCtzJw3DRgn3H6LhOms7 ANQwoVnkIF2sfIKaAIaeLg4wsD rgaLcjIQ6qRAJsahfvy580UvUb a9goDTUtbPCgMIbdECY8I19f a6G4WPYoPRUkPIB5eAW5mW7bxB lnbjogbGVmdDsgdmVydGljYWwt EZpvR874PYUuhLqlEuTmzGDl OjwvdGQ+MV66sv25K2SbJnssMp g4LTYcDSL5rMK4hT0cQWIlYNzo f8V9wBK5J8VngzHugh7sc7xl YXB (more content not included)... [facility] Coding Summaryon 08-20-2021 Coding Summary HTMLBase 64 FnpptaylQYv0oRi+PGhlYWQ+PE 6CHQSsM48ogAOtwX5OE9pMHY6Y OFERVQKOSW9UVX0hlQX3WRuvW1 VybiAv YeqndVPvES75AHe5EUO2mEwrQH csgZ9pdMNeZ3s5QxYwMY25fU07 RWaeXSWbKtH5OtNqeemjaQVj N2aaNsCmiQUyQkj+PHRhYmxlIH lyIMFxEBlhTHVhGiCtsLieUC4d Tu3bUIHaQCNtgWheaCVuKqCg c8dyXVJrTMobSP5wuXktK6RvfW O3YSFdv0v4Lq27jMT+PHRkIHN0 oOwnXWqfy078VmGek7fwTWQ8 yTLhFTsjKVA6Y25wf2B4BNFdBB LiVLB0nUQ9vK9poUcxmjmbU3Te cMMsOpW7ULZ8nWHcbF7zoDmu vtsieU8rUoo+L53PNA3LBTTXMJ 4YQwk6W5NcMaallFP+ZL67TIJf SW12oVFheEPbc2voeVp8KpFc DPVxKYD2vDtbLAvhd0NxIGMpM8 7pcCTmc3W2HHLtwIndyIFvRpUd bXL0mT3cQRqiuxble2ufvqbe Ufvgt5bobh99aU26Z39mTRszQQ MpCNG0QGBwQHEagGzvsp2ltM2h Ii8+QBmls6jym1tgyDf3DoVz GFResnOudUqwRFE9h9XeAd11Z4 IjzVrvy3BhQuk6hs55mUJij9V2 qQY6BHlqCJMlkT4iPElxLwH1 DVMkHwCcxO44zXIrFNsgGm5xzP dlpCamJU6kPQFkisqmZIOqrS1e HXMelBRpkZiqBC7fKXIbubul s743YbRdIVL1FSPktGVtK4QltP 4uBjNdPXNvZJSqW5BbrHWaELko N903ZFzsZlV3FWOrlyKnU7Kg XNYetZeaStH4n8Q7Rr3Hn9Ejug ixMLF1QYlqJTSbFzF2MyOyTnW7 V3YuHjf2LYEciTivCV9dP9Dp FKDhndvrpzuycZZ1WQYvWHTivV 04pNBrSVatVc5jm7B2j223QOXw PHScvY98Rr3lhRywLSMsgNJY tB2eylftk9eaiyyeZdYmEOUwPB h2NAz3XRDgvJttJwImAGT1VyL0 FVJ1yDAgoR9shUkixdgksF7f Oyc+C65qpU3vNZB9WRR8cdsjEH EzglGbNR35KY75A5AcFxtvbNEv bGU+UUPyeaFncKaoEE1dIhVh y8rmd3RdTYbaD9UcFJZgFTtsFh z3WOZpOWG4uFK8iQ3kSBHtSEer o6N9zDZ7D7McyuVclj5bx3hd NATrKNydB74gqTVsc2A1AMSniJ T3DFLrzYfiOoOehS91Oto+PGNv vZccw1FdVdnkl5iae6htpNu8 GaBrHXWaibKvnWuaHJL8c1CjGi 23W51hQRhtJTJpVIIrETLnOIPq oXyjhl8jhX4mHo3+PGNvbCB3 qBU5fO1hSVHlJvR2SJgvR361Gu YauHDeSwmnw2pnr1ndpYz4OoZk CIXbxcTgiJhpPFK6z9MbEf41 Y83hQVjmHOBzRHHjRHJkTEFrtR gcea1auE4eXu9+YT7kb8bkor54 eW37wWD+XUJbDKT8gVumIZdx QWUoyR7jQVpcFeH5QQByNgVkjZ 73qEWlKMxyZs5duXjmvLgqHW6t EOJutpssw634GuNhk4hwORJn eCXfOYhfMHB8A47mk5N2ASTvOH SfGSY6pRW3tF9ysCqgdpnmmVKa mCmrmmWciGpuGPszBZhgA566 IHRvcDsnPlBhdGllbnQgTmFtZT v8T0HsQig3OCTwbGzxQX8gbKLm PGkaHm7nyQlkgHonQH0xNZAe rgtjh315JkLyg2qnXYTzeGIvJU bwSZG8P75lv5X2SGWsLGBcLQI7 zOJ3iN0eqByczruvkIPgcWpx lfFwaZpdHPraKJgqG299PSArlI onFtRvwvDfSUNasSH9ZQ74ZF08 ePLsi7E8eMP6S1NvVDKyzvqp zpffbJS1QKCyERUcbR91Lt6kiS eqIe9dFCWxKKC1GHAjpRDhJ6Np mX5eGfTmNQAzNHZnT8LqnKBj JGlzG425CHnaUcV6NQNplpLlG5 BfWPMywEruAiM0d0G6Ku2SH8Z8 GH19IH99oGRhs6R9lKS0B0Yl YMIsctwpkrqlkPE9YMNxZDCloO 52Ro8thIstDk4rMWGhRXL7AEQf pESoX3HvsW6rOiPzOUKfLPQv J7MxcROvGFdvB846CGzrRhW0HO NmpeKvO3WdOFVqgVpiEuW1p6U2 Sy2NELb8UD82AO69eXYvw8E4 uNN3O4XcDOIenlltawqspWI2EM BsYRPqjX89Rw2biKwnUk7eXLWy HHJ9DQKslPXnM9PalF7gGzEb KPQuEEJrL7QukSPgFWtlZ901RO agHxQ1XKDyrtUhT7DwPYDxvGga RlV9g1K8Hl5ITQMmCZ07VFO0 uJK7XI46BO32F8YxPgvcmSBhxE U+PHRhYmxlIHdpZHRoPScxMDAl LoIxhCdqRT9rTo4dAHFzWGGs cKxclGBcIvZow5ogJOWrNAhzOU 6xnGkqU8MqrYU1NWCdh9e8Iu34 I57bC2MhwZQ+WJYhgZT6mQS4 gW3sDxIsQoF7GMbfG610FjTiaT OyRsdzz2bqg4fqzUs6GsA5UQTy lyEbaPsxJID0a0EhGw57Y93z IHdpZHRoPSIxNSUiIHZhbGlnbj 4gqE8fZk6+PTCjuQZ8yFA9uB8b OdImNoG5CYsuG535McEeyUMl Qihua1gen1syuDq3GhMoHNLipf ZxcDmdVJL0v6YqIx44V5VusBkw s3VkWnr1gf48xKLog0E3dLL7 R9OmSQAndayacNGxrJjfLM3pOU MgfrbqDMUnjH0jNEMzW6g9LgWf ZkT7VHjnH0AvupV9RPYldLZq QMotBCP6L62da3P2JIXbQXXfIM D2cOU1cM0nmKzmsygrfZMknXxr ruJaeJcaLDdqPLsoZ023DDXx fErfDBLbmH0fCCHlyHSllGoiJK 7fJQHrfbtpXmrRNf3CExtlZ8PE IN8wZGaqtBG+ZNMpIZW5xGnn HGxbOHMweG1iRJXjB7r0BuEkCk R8BVxkJ3DcETWikfktNa95bJ2a KpPmGqH7JOjkU3SyuvI5JJGf gCCeRPbcUUB9N13lo5K7WMPhQT QzFZJ2uKE1bI0rcTpditycdTPg vUqtdcSrcDdyZMcdCDqoU145 DRZqkBwqRzY1GuZ4SyZ3HBR7V6 SwMlu6KHAwxNxrLO6agATqTUoj Wg8suUaatLmkXK8kBREoxbte HTHdgN2tBQEtyYCrwKueJI7pSB Hnyuqly217TiTfRQC0EWRqzUXx O5DbhS5wViQnGBYrLCMfZ3Ar oVAyMQqbQ600VZvnPfC9AHXaxq NcI2RxSGPcaLdgEpS4f1U8Nx96 NyBZZWFyczwvdGQ+PHRkIHN0 bKoqHQvnHFYozC3zCXZzH9o1Vj VrRjZ0AAzgV8QiNSSutntcBa15 wR6iMaMmWwU1JPcbV5UihpF3 NVVyyRBzATivZXY2Y92ui5R8MF UwTQSxNYA0qTK9kF8poBqvncwb bGVmdDsgdmVydGljYWwtYWxp C899DFTgdGyzBtVLUKYZHHjflS Q+XQZjWFP4ePysAZbwARYdyT5v KNQfU6x6DoHjJfU5RLiaS3Cj KMZaebdgHk72yV1iDpScUfH6WW vdH1CnrjQ0SEWsoYDsUMjwTNJ6 T11fm6V1NWYgGGZuIJU2tWX5 wX1taKsvrplrhXOdhRsfdiBlxK wwHRtfKNpnM861LFEdtBzrLviu mLM3iVUxzAujaOQ+NZ05ya25 I1GiXlpjZqv0RLVeYFV1cWF1uQ 7aMMCcSUaxm8F9wUU5P3VntwGd qj8xh9ycLAFiAPxyX60vyEHu c9L2NRFuyDQ3LYPtmBcaZnQlwG 93Oyc+XLFulHhtb9UhHxqvw1fl f1inrPr2CdPvGSBixqKszTao ZLJ2j9HfQn89A15wWDbmMWGmUX ZoOBZrTCDawHwlka1vrZ0hKu5+ ZTTcmJM8tFH8yV7aGlWnXzA9 BAofN336CoBdpTIkMyyvd5jjx9 crpCu1NwTrHMMoydLrjBplPAU3 j3KrVs58M0ZrdPnwq8LbYay6 tk55uZCtr1P5rPK1K2ToSQUwjl sciAKbkWpnOJ7uOAOrmtlcAHJm dY5dSNQbO0s5DgEfVoY8HRha D2DrpaI2NCPnmJTmSXTjjSTOhM 0atpiji5tmhddvMvSfSBKkRWu6 YAt7EIZvqVuyTySmLMF7CpD9 CME7hUMnhG0wzBrghomdjD0kPi c+IQl5l3ckaFFaGU4ajSM4MK72 VJ70mVAon3Q3rCE7S3WiMNHd yymoslkguEN5GPAeOGGtlT05Zs 0iyGatVc1gANVjTRI9ONMffSOb B1RqnZ6cGrXzVFThMURdX7Zd bQHnOMycX433BYbgZvQ3JSGohh IvT9TaURObkWowTtZ1y5E2Jl0S VE47UD38IY94wPKrw8V2rXR9 E5AdAXFpvzlrjofsgYX0VDVhSM UapI65Fs1fmHbgDp6vMYOkARF7 UWFjnROfJ7StjJ2jBnOaJSIy VYBcZ8RzhFKlTHhhW613VMskGf E8TOKmxoGkE9YuEJEynBiuDjH6 v1V8Gd7DAb56VC10TH50iRPe e0U5uVA2A5GsRFGumjbaqwzydM D6OXZtYXWelC04Mj8vyXkkFi3g IMYpYRC5OZKkkNGbG4BmcU4m HhVkRIOaCCZbR7GqvPYsCEvkE6 24DQniHiU0PLJfcwUgY8RnMLUb gKlkNxZ4t2Y9Ik9UINbtjqv7 A4QfYeafbFM+AA34DLEwYQ59jA TmlJJax7efzHo0TjWhUPClWIS3 iKznBEkfm9RlNDMnB57nkIVd c2U (more content not included)... [facility] Outside Recordson 08-17-2021 Outside Records [id number] 08-15-2021 Consent Forms [id number][facility] Pathology Sendout Teston Pathology Send Out. See Report [facility] Comment on above: Order Comment: PROCE DURE COLONOSCOPYSPECIMEN CECAL POLYP Performed By: #### 1 [id number], [id number], [id number], [id number] #### [facility] (DEFAULT) [address] [place] [address] Provider Orderson 08-15-2021 Provider Orders [id number][facility] Telemetry Stripson Telemetry Strips [id number]#1.00OTGTIFF Normal [facility] Transfer Noteon 08-15-2021 Transfer Note [id number]#1.00OTGTIFF Normal [facility] .Auto Diff 1on 08-14-2021 Auto [place] % 7 % Normal 1-12 [facility] Comment on above: Performed By: #### 1 [id number], [id number], [id number], [id number] #### [facility] (DEFAULT) [address] [place] [address] Baso Abs# 0.0 x10 Normal 0.0-0.2 [facility] Comment on above: Performed By: #### 1 [id number], [id number], 43672750, 8925383 #### [facility] (DEFAULT) [address] [place] [address] Basophils/100 WBC (Bld) 1.0 % Normal 0.2-2.0 [facility] Comment on above: Performed By: #### 1 [id number], [id number], [id number], 5768023 #### [facility] (DEFAULT) [address] [place] [address] Eos Abs# 0.1 x10 Normal 0.0-0.4 [facility] Comment on above: Performed By: #### 1 [id number], [id number], 96712657, 9869391 #### [facility] (DEFAULT) [address] [place] [address] Eosinophils/100 WBC (Bld) 2.9 % Normal 0.9-4.0 [facility] Comment on above: Performed By: #### 1 [id number], 6041288, 67583901, 7971911 #### [facility] (DEFAULT) [address] [place] [address] Lymph Abs# 1.5 x10 Normal 1.3-2.9 [facility] Comment on above: Performed By: #### 1 [id number], 4205143, 07522258, 6171188 #### [facility] (DEFAULT) [address] [place] [address] 09296 Lymphocytes/100 WBC (Bld) 31 % Normal 14-48 [facility] Comment on above: Performed By: #### 1 [id number], 1337626, 99182770, 6911785 #### [facility] (DEFAULT) [address] [place] [address] 97157 [place] Abs# 0.4 x10 Normal 0.0-0.8 [facility] Comment on above: Performed By: #### 1 [id number], 1392172, 93209789, 7793814 #### [facility] (DEFAULT) [address] [place] [address] Neut Abs# 2.8 x10 Normal 1.5-9.2 [facility] Comment on above: Performed By: #### 1 [id number], 8593380, 67307383, 1328399 #### [facility] (DEFAULT) [address] [place] [address] 04831 Neutrophils/100 WBC (Bld) 58 % Normal 44-88 [facility] Comment on above: Performed By: #### 1 [id number], 5990113, 74191555, 1395257 #### [facility] (DEFAULT) [address] [place] [address] C. diff DNAon 08-14-2021 C. diff DNA Negative Normal Negative [facility] Comment on above: Performed By: #### 4 [id number] ####[facility] (DEFAULT)[address] [place] [address] Internal QC OK? Pass Normal [facility] Comment on above: Performed By: #### 4 [id number] ####[facility] (DEFAULT)[address] [place] [address] CBC w/ Auto Diffon Erythrocyte distribution width (RBC) [Ratio] 17.9 % High 11.5-15.0 [facility] Comment on above: Performed By: #### 1 [id number], 5761640, 17633299, 7358369 #### [facility] (DEFAULT) [address] [place] [address] Hematocrit (Bld) [Volume fraction] 27.8 % Low 33.7-40.4 [facility] Comment on above: Performed By: #### 1 [id number], 5299348, 15110303, 9146372 #### [facility] (DEFAULT) [address] [place] [address] 91755 Hemoglobin (Bld) [Mass/Vol] 8.1 g/dL Low 11.3-15.9 [facility] Comment on above: Performed By: #### 1 [id number], 7139600, 09130634, 8435914 #### [facility] (DEFAULT) [address] [place] [address] 56640 Instr WBC 4.9 x10 Invalid Interpretation Code [facility] Comment on above: Performed By: #### 1 [id number], 0224674, 29679579, 6325894 #### [facility] (DEFAULT) [address] [place] [address] 76847 Man Diff? Auto Normal [facility] Comment on above: Performed By: #### 1 [id number], 9104307, 46876060, 4079265 #### [facility] (DEFAULT) [address] [place] [address] 58977 MCH (RBC) [Entitic mass] 27 pg Normal 24-34 [facility] Comment on above: Performed By: #### 1 [id number], 9573541, 42727429, 9191658 #### [facility] (DEFAULT) [address] [place] [address] 18984 MCHC (RBC) [Mass/Vol] 29 g/dL Normal 26-37 [facility] Comment on above: Performed By: #### 1 [id number], 6733057, 20723602, 4624367 #### [facility] (DEFAULT) [address] [place] [address] 06406 MCV (RBC) [Entitic vol] 94 fL Normal 81-100 [facility] Comment on above: Performed By: #### 1 [id number], 7237877, 76341162, 4362273 #### [facility] (DEFAULT) [address] [place] [address] 18734 Platelet 280 x10 Normal 138-427 [facility] Comment on above: Performed By: #### 1 [id number], 4670167, 73296641, 3849448 #### [facility] (DEFAULT) [address] [place] [address] Platelet mean volume (Bld) [Entitic vol] 9.3 fL Normal 6.3-10.2 [facility] Comment on above: Performed By: #### 1 [id number], 6557680, 85521632, 3659727 #### [facility] (DEFAULT) [address] [place] [address] RBC 2.96 x10 Low 3.70-5.30 [facility] Comment on above: Performed By: #### 1 [id number], 3192714, 90881789, 4038905 #### [facility] (DEFAULT) [address] [place] [address] WBC 4.9 x10 Normal 3.5-10.5 [facility] Comment on above: Performed By: #### 1 [id number], 3475524, 74892084, 3556745 #### [facility] (DEFAULT) [address] [place] [address] Standardon 08-14-2021 eGFR Non AA >60 Invalid Interpretation Code [facility] Comment on above: Performed By: #### 1 [id number], 0361701, 16878867, 9176739 #### [facility] (DEFAULT) [address] [place] [address] eGFR AA >60 Invalid Interpretation Code [facility] Comment on above: Result Comment: 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 Kidney Failure is indicated at less than 15 ml/min/1.73m2 Performed By: #### 1 [id number], 9192977, 39982569, 7032737 #### [facility] (DEFAULT) [address] [place] [address] Albumin [Mass/Vol] 3.0 g/dL Low 3.5-5.0 [facility] Comment on above: Performed By: #### 1 [id number], 2815129, 51656558, 8196289 #### [facility] (DEFAULT) [address] [place] [address] 98389 Albumin/Globulin [Mass ratio] 1.8 {ratio} Normal 1.4-2.6 [facility] Comment on above: Performed By: #### 1 [id number], 3310143, 67079071, 5259943 #### [facility] (DEFAULT) [address] [place] [address] 23864 Alk Phos 35 IU/L Normal 32-91 [facility] Comment on above: Performed By: #### 1 [id number], 1735744, 66088335, 6061253 #### [facility] (DEFAULT) [address] [place] [address] 12012 ALT [Catalytic activity/Vol] 16.0 U/L Normal 14.0-54.0 [facility] Comment on above: Performed By: #### 1 [id number], 6360385, 99634908, 0738379 #### [facility] (DEFAULT) [address] [place] [address] 88994 Anion gap [Moles/Vol] 12.0 mmol/L Normal 5.0-19.0 [facility] Comment on above: Performed By: #### 1 [id number], 4283855, 89762542, 9481382 #### [facility] (DEFAULT) [address] [place] [address] 97552 AST [Catalytic activity/Vol] 24 U/L Normal 15-41 [facility] Comment on above: Performed By: #### 1 [id number], 6655368, 02972124, 6527159 #### [facility] (DEFAULT) [address] [place] [address] 12222 Bili Total 0.5 mg/dL Normal 0.3-1.2 [facility] Comment on above: Performed By: #### 1 [id number], 4159845, 58086010, 4021286 #### [facility] (DEFAULT) [address] [place] [address] 19886 Calcium [Mass/Vol] 7.4 mg/dL Low 8.9-10.3 [facility] Comment on above: Performed By: #### 1 [id number], 0103484, 96864697, 2163698 #### [facility] (DEFAULT) [address] [place] [address] 78626 Chloride [Moles/Vol] 108 mmol/L Normal 101-111 [facility] Comment on above: Performed By: #### 1 [id number], 9573766, 17456182, 0752764 #### [facility] (DEFAULT) [address] [place] [address] 32082 CO2 [Moles/Vol] 26 mmol/L Normal 21-32 [facility] Comment on above: Performed By: #### 1 [id number], 4801974, 09155791, 1182147 #### [facility] (DEFAULT) [address] [place] [address] 25793 Creatinine [Mass/Vol] 0.68 mg/dL Normal 0.60-1.30 [facility] Comment on above: Performed By: #### 1 [id number], 4291740, 16374120, 4148458 #### [facility] (DEFAULT) [address] [place] [address] 15521 Globulin (S) [Mass/Vol] 1.7 g/dL Normal 1.5-4.3 [facility] Comment on above: Performed By: #### 1 [id number], 9950575, 40950241, 2031093 #### [facility] (DEFAULT) [address] [place] [address] 44507 Glucose [Mass/Vol] 80.0 mg/dL Normal 74.0-118.0 [facility] Comment on above: Performed By: #### 1 [id number], 9596733, 15910913, 7437241 #### [facility] (DEFAULT) [address] [place] [address] 52912 Osmolality 279 mOsm/L Invalid Interpretation Code [facility] Comment on above: Performed By: #### 1 [id number], [id number], [id number] #### [facility] (DEFAULT) [address] [place] [address] 93911 Potassium [Moles/Vol] 5.5 mmol/L High 3.6-5.1 [facility] Comment on above: Performed By: #### 1 [id number], [id number], [id number], [id number] #### [facility] (DEFAULT) [address] [place] [address] 94079 Protein [Mass/Vol] 4.7 g/dL Low 6.5-8.1 [facility] Comment on above: Performed By: #### 1 [id number], [id number], [id number], [id number] #### [facility] (DEFAULT) [address] [place] [address] 69461 Sodium [Moles/Vol] 140.0 mmol/L Normal 136.0-144.0 [facility] Comment on above: Performed By: #### 1 [id number], [id number], [id number], [id number] #### [facility] (DEFAULT) [address] [place] [address] 11883 Urea nitrogen [Mass/Vol] 14 mg/dL Normal 8-26 [facility] Comment on above: Performed By: #### 1 [id number], [id number], [id number], [id number] #### [facility] (DEFAULT) [address] [place] [address] 83493 Urea nitrogen/Creatinin e [Mass ratio] 21.0 mg/mg High 4.6-16.2 [facility] Comment on above: Performed By: #### 1 [id number], [id number], [id number], [id number] #### [facility] (DEFAULT) [address] [place] [address] 32957 Inpatient Patient Summaryon 08-14-2021 Inpatient Patient Summary [address] [address] Patient Discharge Instructions Name: ASHVIN RENE Berry : 1955 Patient Address: [address] [place] [address] Primary Care Provider: Name: TUSHAR SOLANO JR. After you are discharged if you find you have any questions, please, call [phone] ext [phone] to speak to a nurse. Discharge Diagnosis: [...] alcohol and/or drug addiction problems; contact the [facility] 03/02 Crisis Hotline -Text 4HRAV to 011187. If you received any narcotics, sedation, or [...] business decisions or sign any legal documents [facility] would like to thank you for allowing us to assist you with your healthcare needs. The following includes patient education materials and information regarding your injury/illness. ASHVIN RENE has been given the following list of follow-up instructions, prescriptions, and patient education materials: Follow-up Instructions With: Address: When: TUSHAR SOLANO JR. [address] [place] [address] [facility] (1) 08/21/2021 2:45 PM Medications During the course of your visit, your medication list was updated with the most current information. The details of those changes are reflected below: New Medications [facility], [address] [place] [address] [id number], [phone] ferrous sulfate (ferrous sulfate 325 mg (65 mg elemental iron) oral tablet) 1 tab(s) Oral 2 times a day for 30 Days. Refills: 1. torsemide (torsemide 20 mg oral tablet) 1 tab(s) Oral every other day for 30 Days. [facility]. Refills: 1. Medications That Were Updated - Follow Below Instructions Other Medications Updated: fludrocortisone (fludrocortisone 0.1 mg oral tablet) 0.5 tab(s) Oral every day. TAKE IN MORNING MEAL, HOLD IF STANDING BP [id number]. Medications to Continue That Have Not Changed [...] mg oral tablet) potassium chloride (Potassium Chloride (Vpz-Xgrc-Mtv 10) 10 mEq oral tablet, extended release) [...] 250 mg oral (more content not included)... [facility] [id number] [facility] Noteon 08-14-2021 Pharmacy Note I have personally re viewed the patient's medication list upon discharge including, prescription medications, OTC products, vitamins and supplements. Below are the following medications the patient is discharged on. New Medications [facility], [address] [place] [address] [phone], [phone] ferrous sulfate (ferrous sulfate 325 mg (65 mg elemental iron) oral tablet) 1 tab(s) Oral 2 times a day for 30 Days. Refills: 1. torsemide (torsemide 20 mg oral tablet) 1 tab(s) Oral every other day for 30 Days. [facility]. Refills: 1. Medications That Were Updated - Follow Below Instructions Other Medications Updated: fludrocortisone (fludrocortisone 0.1 mg oral tablet) 0.5 tab(s) Oral every day. TAKE IN MORNING MEAL, HOLD IF STANDING BP [id number]. Updated: midodrine (midodrine 10 mg oral tablet) [...] Oral every day. potassium chloride (Potassium Chloride (Vbi-Cjsl-Ssc 10) 10 mEq oral tablet, extended release) 1 tab(s) Oral 3 times a day. vancomycin (Firvanq 25 mg/mL oral liquid) 5 Milliliter Oral 4 times a day. [Electronically Signed on: 08/14/2021 15:17 EST] Nadia Devi [Verified on: 08/14/2021 15:17 EST] Nadia Devi [facility] .Auto Diff 1on 08-13-2021 Auto [place] % 6 % Normal 07-25 [facility] Comment on above: Performed By: #### 1 [id number], [id number], [id number], [id number] #### [facility] (DEFAULT) [address] [place] [address] 26478 Baso Abs# 0.0 x10 Normal 0.0-0.2 [facility] Comment on above: Performed By: #### 1 [id number], [id number], [id number], [id number] #### [facility] (DEFAULT) [address] [place] [address] 53716 Basophils/100 WBC (Bld) 0.5 % Normal 0.2-2.0 [facility] Comment on above: Performed By: #### 1 [id number], [id number], [id number], [id number] #### [facility] (DEFAULT) [address] [place] [address] 41898 Eos Abs# 0.1 x10 Normal 0.0-0.4 [facility] Comment on above: Performed By: #### 1 [id number], [id number], [id number], [id number] #### [facility] (DEFAULT) [address] [place] [address] 49031 Eosinophils/100 WBC (Bld) 1.7 % Normal 0.9-4.0 [facility] Comment on above: Performed By: #### 1 [id number], [id number], [id number], [id number] #### [facility] (DEFAULT) [address] [place] [address] 73315 Lymph Abs# 1.4 x10 Normal 1.3-2.9 [facility] Comment on above: Performed By: #### 1 [id number], [id number], [id number], [id number] #### [facility] (DEFAULT) [address] [place] [address] 86750 Lymphocytes/100 WBC (Bld) 21 % Normal 14-48 [facility] Comment on above: Performed By: #### 1 [id number], [id number], [id number], [id number] #### [facility] (DEFAULT) [address] [place] [address] 38219 Kingfisher Abs# 0.4 x10 Normal 0.0-0.8 [facility] Comment on above: Performed By: #### 1 [id number], [id number], [id number], [id number] #### [facility] (DEFAULT) [address] [place] [address] 40082 Neut Abs# 4.5 x10 Normal 1.5-9.2 [facility] Comment on above: Performed By: #### 1 [id number], 5390934, 38253869, 4014174 #### [facility] (DEFAULT) [address] [place] [address] 17899 Neutrophils/100 WBC (Bld) 71 % Normal 44-88 [facility] Comment on above: Performed By: #### 1 [id number], 5433358, 70910178, 3467836 #### [facility] (DEFAULT) [address] [place] [address] 66202 ABORhon 08-13-2021 ABO and Rh group Nom (Bld) Placed by Discern Expert due to BBPR being ordered. Hx Check: Found Anti-A: 0 Anti-B: 0 Anti-D: 4+ DCon: NT A1: 4+ B: 4+ ABORh Interp: O POS Invalid Interpretation Code [facility] Comment on above: Performed By: #### 1 [id number], 5302748, 35668731, 2547448 #### [facility] (DEFAULT) [address] [place] [address] 25183 ABSC Gelon 08-13-2021 ABSC Gel Placed by Discern Ex pert due to BBPR being ordered. SC1 Gel: 0 SC2 Gel: 0 SC3 Gel: 0 ABSC Gel Interp: Negative Normal [facility] Comment on above: Performed By: #### 1 [id number], 9561409, 00402336, 4074075 #### [facility] (DEFAULT) [address] [place] [address] 56749 BMP Standardon 08-13-2021 Anion gap [Moles/Vol] 13.0 mmol/L Normal 5.0-19.0 [facility] Comment on above: Performed By: #### 1 [id number], 2570383, 34698014, 6007263 #### [facility] (DEFAULT) [address] [place] [address] 93571 Calcium [Mass/Vol] 6.8 mg/dL Low 8.9-10.3 [facility] Comment on above: Performed By: #### 1 [id number], 6531655, 93313821, 6472254 #### [facility] (DEFAULT) [address] [place] [address] 88020 Chloride [Moles/Vol] 106 mmol/L Normal 101-111 [facility] Comment on above: Performed By: #### 1 [id number], 9761232, 33879842, 7134373 #### [facility] (DEFAULT) [address] [place] [address] 62168 CO2 [Moles/Vol] 24 mmol/L Normal 21-32 [facility] Comment on above: Performed By: #### 1 [id number], 2082574, 61704508, 6703162 #### [facility] (DEFAULT) [address] [place] [address] 04505 Creatinine [Mass/Vol] 0.65 mg/dL Normal 0.60-1.30 [facility] Comment on above: Performed By: #### 1 [id number], 9774705, 60589855, 6611209 #### [facility] (DEFAULT) [address] [place] [address] 81156 Glucose [Mass/Vol] 108.0 mg/dL Normal 74.0-118.0 [facility] Comment on above: Performed By: #### 1 500579927, 9025188, 00331099, 0255099 #### [facility] (DEFAULT) [address] [place] [address] 26007 Osmolality 275 mOsm/L Invalid Interpretation Code [facility] Comment on above: Performed By: #### 1 [id number], 6962412, 89920372, 3674652 #### [facility] (DEFAULT) [address] [place] [address] 52165 Potassium [Moles/Vol] 5.0 mmol/L Normal 3.6-5.1 [facility] Comment on above: Result Comment: Pota ssium medication/therapy Performed By: #### 1 [id number], 1149110, 62987734, 1268918 #### [facility] (DEFAULT) [address] [place] [address] Sodium [Moles/Vol] 138.0 mmol/L Normal 136.0-144.0 [facility] Comment on above: Performed By: #### 1 128716191, 9637537, 42276642, 4400686 #### [facility] (DEFAULT) [address] [place] [address] Urea nitrogen [Mass/Vol] 10 mg/dL Normal 8-26 [facility] Comment on above: Performed By: #### 1 110496071, 7873003, 69413729, 5999369 #### [facility] (DEFAULT) [address] [place] [address] Urea nitrogen/Creatinin e [Mass ratio] 15.0 mg/mg Normal 4.6-16.2 [facility] Comment on above: Performed By: #### 1 [id number], 0420502, 93042623, 8126413 #### [facility] (DEFAULT) [address] [place] [address] eGFR Non AA >60 Invalid Interpretation Code [facility] Comment on above: Performed By: #### 1 [id number], 7668940, 23318597, 8001575 #### [facility] (DEFAULT) [address] [place] [address] eGFR AA >60 Invalid Interpretation Code [facility] Comment on above: Result Comment: 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 Kidney Failure is indicated at less than 15 ml/min/1.73m2 Performed By: #### 1 [id number], 9237114, 65580346, 3946864 #### [facility] (DEFAULT) [address] [place] [address] CBC w/ Auto Diffon 2 Erythrocyte distribution width (RBC) [Ratio] 17.8 % High 11.5-15.0 [facility] Comment on above: Performed By: #### 1 [id number], 9867886, 07626164, 3674818 #### [facility] (DEFAULT) [address] [place] [address] Hematocrit (Bld) [Volume fraction] 26.7 % Low 33.7-40.4 [facility] Comment on above: Performed By: #### 1 [id number], 8345038, 79887454, 3295705 #### [facility] (DEFAULT) [address] [place] [address] Hemoglobin (Bld) [Mass/Vol] 7.8 g/dL Low 11.3-15.9 [facility] Comment on above: Performed By: #### 1 [id number], 9684712, 52146651, 5107578 #### [facility] (DEFAULT) [address] [place] [address] Instr WBC 6.4 x10 Invalid Interpretation Code [facility] Comment on above: Performed By: #### 1 [id number], 8147783, 21954672, 2356731 #### [facility] (DEFAULT) [address] [place] [address] Man Diff? Auto Normal [facility] Comment on above: Performed By: #### 1 [id number], 4813588, 86897454, 0490716 #### [facility] (DEFAULT) [address] [place] [address] 04776 MCH (RBC) [Entitic mass] 27 pg Normal 24-34 [facility] Comment on above: Performed By: #### 1 [id number], 5954892, 91345052, 0428096 #### [facility] (DEFAULT) [address] [place] [address] 89686 MCHC (RBC) [Mass/Vol] 29 g/dL Normal 26-37 [facility] Comment on above: Performed By: #### 1 [id number], 5969954, 29320414, 1064044 #### [facility] (DEFAULT) [address] [place] [address] 64143 MCV (RBC) [Entitic vol] 94 fL Normal 81-100 [facility] Comment on above: Performed By: #### 1 [id number], 3411727, 90707440, 7292369 #### [facility] (DEFAULT) [address] [place] [address] Platelet 309 x10 Normal 138-427 [facility] Comment on above: Performed By: #### 1 [id number], 8070535, 60520066, 4982585 #### [facility] (DEFAULT) [address] [place] [address] Platelet mean volume (Bld) [Entitic vol] 9.2 fL Normal 6.3-10.2 [facility] Comment on above: Performed By: #### 1 [id number], 9166040, 93755206, 2512710 #### [facility] (DEFAULT) [address] [place] [address] RBC 2.85 x10 Low 3.70-5.30 [facility] Comment on above: Performed By: #### 1 134293350, 4860843, 42336963, 3538911 #### [facility] (DEFAULT) [address] [place] [address] WBC 6.4 x10 Normal 3.5-10.5 [facility] Comment on above: Performed By: #### 1 357651826, 7349010, 15270342, 8613165 #### [facility] (DEFAULT) [address] [place] [address] H&Hon 08-13-2021 Hematocrit (Bld) [Volume fraction] 29.9 % Low 33.7-40.4 [facility] Comment on above: Performed By: #### 1 332492615, 5715793, 73786304, 6071912 #### [facility] (DEFAULT) [address] [place] [address] Hemoglobin (Bld) [Mass/Vol] 8.7 g/dL Low 11.3-15.9 [facility] Comment on above: Performed By: #### 1 484825206, 8677518, 00078659, 4983872 #### [facility] (DEFAULT) [address] [place] [address] Magnesiumon 08-13-2021 Magnesium [Mass/Vol] 2.07 mg/dL Normal 1.80-2.50 [facility] Comment on above: Performed By: #### 1 599257893, 4281589, 67547147, 7281421 #### [facility] (DEFAULT) [address] [place] [address] 25540 Nutrition Noteon 08-13-2021 Nutrition Note 08/12 wt 60.1kg, questionable 12kg loss from admit wt at 72kg. Pt did received lasix, IV alb with improvement noted in LE edema, however, still question loss of 26lb in less than 1wk. Alb back at 3.3, stable. H/H also on recheck, stable. Intake avg 25-50%. Per rounds, if hgb remains stable, Pt to be discharged back to [facility]. If discharge plans change, will re-add supplements. Will request re-weight in am. [facility] RBC.on 08-13-2021 RBC. # of Units: 1 RBC Indication: Symptom Anemia Additional Units?: No Date Needed: 08/13/2021 Red Cell Status: RBC Ready [facility] Comment on above: Performed By: #### 1 [id number], 3767617, 33191091, 9151077 #### [facility] (DEFAULT) [address] [place] [address] 21499 Telemetry Stripson 2 Telemetry Strips [id number] [facility] .Auto Diff 1on 08-12-2021 Auto Kingfisher % 8 % Normal -12 [facility] Comment on above: Performed By: #### 7 856721, 86564822, 2062504, [id number] #### [facility] (DEFAULT) [address] [place] [address] 25208 Baso Abs# 0.0 x10 Normal 0.0-0.2 [facility] Comment on above: Performed By: #### 7 515418, 16258827, 9656763, [id number] #### [facility] (DEFAULT) [address] [place] [address] 99480 Basophils/100 WBC (Bld) 0.7 % Normal 0.2-2.0 [facility] Comment on above: Performed By: #### 7 240682, 23100476, 5795268, 4404771122 #### [facility] (DEFAULT) [address] [place] [address] 51909 Eos Abs# 0.1 x10 Normal 0.0-0.4 [facility] Comment on above: Performed By: #### 7 697706, 73306078, 5144259, 7611900076 #### [facility] (DEFAULT) [address] [place] [address] 18755 Eosinophils/100 WBC (Bld) 1.8 % Normal 0.9-4.0 [facility] Comment on above: Performed By: #### 7 874534, 13438576, 7016854, 4279739661 #### [facility] (DEFAULT) [address] [place] [address] 84706 Lymph Abs# 1.6 x10 Normal 1.3-2.9 [facility] Comment on above: Performed By: #### 7 306487, 02227467, 6221812, 3035612628 #### [facility] (DEFAULT) [address] [place] [address] 14836 Lymphocytes/100 WBC (Bld) 30 % Normal 14-48 [facility] Comment on above: Performed By: #### 7 332662, 17086828, 3384000, 1759890269 #### [facility] (DEFAULT) [address] [place] [address] 37965 Kingfisher Abs# 0.4 x10 Normal 0.0-0.8 [facility] Comment on above: Performed By: #### 7 516162, 01968507, 7654190, 9316290565 #### [facility] (DEFAULT) [address] [place] [address] 70743 Neut Abs# 3.2 x10 Normal 1.5-9.2 [facility] Comment on above: Performed By: #### 7 360223, 60488658, 0825178, 3304314474 #### [facility] (DEFAULT) [address] [place] [address] 53455 Neutrophils/100 WBC (Bld) 60 % Normal 44-88 [facility] Comment on above: Performed By: #### 7 685425, 49496336, 5223813, 6211193620 #### [facility] (DEFAULT) [address] [place] [address] 74598 CBC w/ Auto Diffon 2 Erythrocyte distribution width (RBC) [Ratio] 17.9 % High 11.5-15.0 [facility] Comment on above: Performed By: #### 7 256983, 34303014, 5276191, [id number] #### [facility] (DEFAULT) [address] [place] [address] Hematocrit (Bld) [Volume fraction] 28.6 % Low 33.7-40.4 [facility] Comment on above: Performed By: #### 7 965794, 28592904, 0309626, 9165885027 #### [facility] (DEFAULT) [address] [place] [address] Hemoglobin (Bld) [Mass/Vol] 8.5 g/dL Low 11.3-15.9 [facility] Comment on above: Performed By: #### 7 953075, 36238342, 6436890, 4619697221 #### [facility] (DEFAULT) [address] [place] [address] Instr WBC 5.4 x10 Invalid Interpretation Code [facility] Comment on above: Performed By: #### 7 317992, 03376906, 0687562, 7118711917 #### [facility] (DEFAULT) [address] [place] [address] 48036 Man Diff? Auto Normal [facility] Comment on above: Performed By: #### 7 438381, 52355284, 7341057, [id number] #### [facility] (DEFAULT) [address] [place] [address] 04569 MCH (RBC) [Entitic mass] 28 pg Normal 24-34 [facility] Comment on above: Performed By: #### 7 017472, 71940947, 4011618, 3871452437 #### [facility] (DEFAULT) [address] [place] [address] 38471 MCHC (RBC) [Mass/Vol] 30 g/dL Normal 26-37 [facility] Comment on above: Performed By: #### 7 875943, 21571470, 2649607, 2619243199 #### [facility] (DEFAULT) [address] [place] [address] 08963 MCV (RBC) [Entitic vol] 94 fL Normal 81-100 [facility] Comment on above: Performed By: #### 7 261164, 34591171, 4973360, 5833240382 #### [facility] (DEFAULT) [address] [place] [address] 18345 Platelet 305 x10 Normal 138-427 [facility] Comment on above: Performed By: #### 7 550225, 25451223, 1903145, 2066916897 #### [facility] (DEFAULT) [address] [place] [address] 98354 Platelet mean volume (Bld) [Entitic vol] 9.8 fL Normal 6.3-10.2 [facility] Comment on above: Performed By: #### 7 651397, 35151118, 2068928, 5708447832 #### [facility] (DEFAULT) [address] [place] [address] 71530 RBC 3.03 x10 Low 3.70-5.30 [facility] Comment on above: Performed By: #### 7 312738, 14991095, 1390166, 9492411083 #### [facility] (DEFAULT) [address] [place] [address] 62233 WBC 5.4 x10 Normal 3.5-10.5 [facility] Comment on above: Performed By: #### 7 086595, 40300220, 4697495, 0139685316 #### [facility] (DEFAULT) [address] [place] [address] 08073 CMP Standardon 08-12-2021 Albumin [Mass/Vol] 3.3 g/dL Low 3.5-5.0 [facility] Comment on above: Performed By: #### 7 857661, 13727557, 8644798, 1210166917 ####[facility] (DEFAULT)[address] [place] [address] 79880 Albumin/Globulin [Mass ratio] 2.4 {ratio} Normal 1.4-2.6 [facility] Comment on above: Performed By: #### 7 304156, 01131234, 6444045, 2609351910 ####[facility] (DEFAULT)[address] [place] [address] 02432 Alk Phos 28 IU/L Low 32-91 [facility] Comment on above: Performed By: #### 7 934975, 50101084, 7141814, 4946917052 ####[facility] (DEFAULT)[address] [place] [address] 44211 ALT [Catalytic activity/Vol] 14.0 U/L Normal 14.0-54.0 [facility] Comment on above: Performed By: #### 7 527271, 08572347, 2882822, 8590527270 ####[facility] (DEFAULT)[address] [place] [address] 62140 Anion gap [Moles/Vol] 15.0 mmol/L Normal 5.0-19.0 [facility] Comment on above: Performed By: #### 7 127262, 35952953, 5166348, 6259026171 ####[facility] (DEFAULT)[address] [place] [address] 83380 AST [Catalytic activity/Vol] 27 U/L Normal 15-41 [facility] Comment on above: Performed By: #### 7 531435, 58490915, 2659662, 1090953564 ####[facility] (DEFAULT)[address] [place] [address] 67247 Bili Total 0.5 mg/dL Normal 0.3-1.2 [facility] Comment on above: Performed By: #### 7 515619, 72642048, 0117831, 0039038670 ####[facility] (DEFAULT)[address] [place] [address] 34719 Calcium [Mass/Vol] 6.7 mg/dL Low 8.9-10.3 [facility] Comment on above: Performed By: #### 7 744415, 68361395, 9853845, 2125210269 ####[facility] (DEFAULT)[address] [place] [address] 74950 Chloride [Moles/Vol] 103 mmol/L Normal 101-111 [facility] Comment on above: Performed By: #### 7 798322, 60097797, 0949794, 9357888104 ####[facility] (DEFAULT)[address] [place] [address] CO2 [Moles/Vol] 27 mmol/L Normal 21-32 [facility] Comment on above: Performed By: #### 7 562770, 30787046, 4901637, 5709194542 ####[facility] (DEFAULT)[address] [place] [address] Creatinine [Mass/Vol] 0.68 mg/dL Normal 0.60-1.30 [facility] Comment on above: Performed By: #### 7 506339, 93503494, 2245378, 2463656616 ####[facility] (DEFAULT)[address] [place] [address] Globulin (S) [Mass/Vol] 1.4 g/dL Low 1.5-4.3 [facility] Comment on above: Performed By: #### 7 585647, 97710882, 2011093, 3416356797 ####[facility] (DEFAULT)[address] [place] [address] Glucose [Mass/Vol] 76.0 mg/dL Normal 74.0-118.0 [facility] Comment on above: Performed By: #### 7 904107, 76513305, 7324354, 1194537717 ####[facility] (DEFAULT)[address] [place] [address] 45243 Osmolality 278 mOsm/L Invalid Interpretation Code [facility] Comment on above: Performed By: #### 7 555598, 48537303, 6376595, [id number] ####[facility] (DEFAULT)[address] [place] [address] Potassium [Moles/Vol] 4.3 mmol/L Normal 3.6-5.1 [facility] Comment on above: Result Comment: IV T herapy Performed By: #### 7 176733, 16753133, 2293010, 1290246133 ####[facility] (DEFAULT)[address] [place] [address] Protein [Mass/Vol] 4.7 g/dL Low 6.5-8.1 [facility] Comment on above: Performed By: #### 7 395706, 33088871, 5348018, 0165535683 ####[facility] (DEFAULT)[address] [place] [address] Sodium [Moles/Vol] 141.0 mmol/L Normal 136.0-144.0 [facility] Comment on above: Performed By: #### 7 006720, 56628863, 3980968, 7392442659 ####[facility] (DEFAULT)[address] [place] [address] Urea nitrogen [Mass/Vol] 8 mg/dL Normal 8-26 [facility] Comment on above: Performed By: #### 7 831264, 11572134, 0527257, 0773442323 ####[facility] (DEFAULT)[address] [place] [address] Urea nitrogen/Creatinin e [Mass ratio] 12.0 mg/mg Normal 4.6-16.2 [facility] Comment on above: Performed By: #### 7 505711, 10343490, 8555501, 1588122584 ####[facility] (DEFAULT)[address] [place] [address] eGFR Non AA >60 Invalid Interpretation Code [facility] Comment on above: Performed By: #### 7 943274, 27099179, 7525554, [id number] ####[facility] (DEFAULT)[address] [place] [address] eGFR AA >60 Invalid Interpretation Code [facility] Comment on above: Result Comment: 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 Kidney Failure is indicated at less than 15 ml/min/1.73m2 Performed By: #### 7 374066, 45216734, 6362675, [id number] ####[facility] (DEFAULT)[address] [place] [address] Magnesiumon 08-12-2021 Magnesium [Mass/Vol] 1.21 mg/dL Low 1.80-2.50 [facility] Comment on above: Performed By: #### 7 684135, 17616745, 0103105, 2353806269 #### [facility] (DEFAULT) [address] [place] [address] .Auto Diff 1on 08-11-2021 Auto Kingfisher % 8 % Normal 1-12 [facility] Comment on above: Performed By: #### 2 817238, 2421825525, 1913286, 22614285 ####[facility] (DEFAULT)[address] [place] [address] Baso Abs# 0.0 x10 Normal 0.0-0.2 [facility] Comment on above: Performed By: #### 2 546036, 5998407771, 0504383, 36358061 ####[facility] (DEFAULT)[address] [place] [address] Basophils/100 WBC (Bld) 0.6 % Normal 0.2-2.0 [facility] Comment on above: Performed By: #### 2 658109, 7182383631, 3585699, 42565113 ####[facility] (DEFAULT)[address] [place] [address] Eos Abs# 0.2 x10 Normal 0.0-0.4 [facility] Comment on above: Performed By: #### 2 758723, 8058057296, 6537810, 18053328 ####[facility] (DEFAULT)[address] [place] [address] Eosinophils/100 WBC (Bld) 3.1 % Normal 0.9-4.0 [facility] Comment on above: Performed By: #### 2 876919, 9109963311, 7992978, 50058209 ####[facility] (DEFAULT)[address] [place] [address] Lymph Abs# 1.4 x10 Normal 1.3-2.9 [facility] Comment on above: Performed By: #### 2 182506, 1269315400, 3278179, 28042298 ####[facility] (DEFAULT)[address] [place] [address] Lymphocytes/100 WBC (Bld) 28 % Normal 14-48 [facility] Comment on above: Performed By: #### 2 660564, 9922956784, 3374475, 90354992 ####[facility] (DEFAULT)[address] [place] [address] Kingfisher Abs# 0.4 x10 Normal 0.0-0.8 [facility] Comment on above: Performed By: #### 2 166099, 1599387554, 2967398, 34621429 ####[facility] (DEFAULT)[address] [place] [address] Neut Abs# 3.2 x10 Normal 1.5-9.2 [facility] Comment on above: Performed By: #### 2 248749, 1746204159, 1013344, 10972012 ####[facility] (DEFAULT)[address] [place] [address] Neutrophils/100 WBC (Bld) 61 % Normal 44-88 [facility] Comment on above: Performed By: #### 2 253357, 4745703904, 8519414, 67379519 ####[facility] (DEFAULT)[address] [place] [address] Standardon 08-11-2021 eGFR Non AA >60 Invalid Interpretation Code [facility] Comment on above: Performed By: #### 2 [id number], [id number], [id number], [id number] ####[facility] (DEFAULT)[address] [place] [address] eGFR AA >60 Invalid Interpretation Code [facility] Comment on above: Result Comment: 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 Kidney Failure is indicated at less than 15 ml/min/1.73m2 Performed By: #### 2 [id number], [id number], [id number], [id number] ####[facility] (DEFAULT)[address] [place] [address] Anion gap [Moles/Vol] 17.0 mmol/L Normal 5.0-19.0 [facility] Comment on above: Performed By: #### 2 [id number], [id number], [id number], [id number] ####[facility] (DEFAULT)[address] [place] [id number] Calcium [Mass/Vol] 6.7 mg/dL Low 8.9-10.3 [facility] Comment on above: Performed By: #### 2 031307, 6436306343, 7510036, 78230454 ####[facility] (DEFAULT)[address] [place] [address] 47949 Chloride [Moles/Vol] 104 mmol/L Normal 101-111 [facility] Comment on above: Performed By: #### 2 128743, 4672872593, 3831156, 38306016 ####[facility] (DEFAULT)[address] [place] [address] 55206 CO2 [Moles/Vol] 24 mmol/L Normal 21-32 [facility] Comment on above: Performed By: #### 2 456815, 6717440559, 9325717, 83857667 ####[facility] (DEFAULT)[address] [place] [address] 00409 Creatinine [Mass/Vol] 0.57 mg/dL Low 0.60-1.30 [facility] Comment on above: Performed By: #### 2 726390, 8879569373, 2529036, 87596445 ####[facility] (DEFAULT)[address] [place] [address] 69358 Glucose [Mass/Vol] 81.0 mg/dL Normal 74.0-118.0 [facility] Comment on above: Performed By: #### 2 947027, 7069085076, 7998195, 75546511 ####[facility] (DEFAULT)[address] [place] [address] 72748 Osmolality 278 mOsm/L Invalid Interpretation Code [facility] Comment on above: Performed By: #### 2 883956, 6103571579, 6499847, 77960065 ####[facility] (DEFAULT)[address] [place] [address] 87803 Potassium [Moles/Vol] 3.6 mmol/L Normal 3.6-5.1 [facility] Comment on above: Performed By: #### 2 038964, 5248870380, 7284939, 09884324 ####[facility] (DEFAULT)[address] [place] [address] 49700 Sodium [Moles/Vol] 141.0 mmol/L Normal 136.0-144.0 [facility] Comment on above: Performed By: #### 2 989817, 8471681031, 5713460, 05249323 ####[facility] (DEFAULT)[address] [place] [address] Urea nitrogen [Mass/Vol] 6 mg/dL Low 8-26 [facility] Comment on above: Performed By: #### 2 943346, 1215043807, 7671154, 90807134 ####[facility] (DEFAULT)[address] [place] [address] Urea nitrogen/Creatinin e [Mass ratio] 11.0 mg/mg Normal 4.6-16.2 [facility] Comment on above: Performed By: #### 2 902831, 1320119547, 3800694, 52911324 ####[facility] (DEFAULT)[address] [place] [address] CBC w/ Auto Diffon Erythrocyte distribution width (RBC) [Ratio] 17.9 % High 11.5-15.0 [facility] Comment on above: Performed By: #### 2 564772, 6638017058, 7939260, 62666873 ####[facility] (DEFAULT)[address] [place] [address] 36452 Hematocrit (Bld) [Volume fraction] 26.2 % Low 33.7-40.4 [facility] Comment on above: Performed By: #### 2 495017, 6327969444, 8751209, 48122092 ####[facility] (DEFAULT)[address] [place] [address] Hemoglobin (Bld) [Mass/Vol] 7.8 g/dL Low 11.3-15.9 [facility] Comment on above: Performed By: #### 2 830292, 5302924674, 8288215, 22874932 ####[facility] (DEFAULT)[address] [place] [address] Instr WBC 5.2 x10 Invalid Interpretation Code [facility] Comment on above: Performed By: #### 2 444035, 6598940089, 4013035, 70220383 ####[facility] (DEFAULT)[address] [place] [address] Man Diff? Auto Normal [facility] Comment on above: Performed By: #### 2 471190, 6119300590, 1664831, 08585134 ####[facility] (DEFAULT)[address] [place] [address] MCH (RBC) [Entitic mass] 28 pg Normal 24-34 [facility] Comment on above: Performed By: #### 2 455686, 1295400340, 0445960, 13925955 ####[facility] (DEFAULT)[address] [place] [address] MCHC (RBC) [Mass/Vol] 30 g/dL Normal 26-37 [facility] Comment on above: Performed By: #### 2 021739, 6667421035, 3368217, 40490973 ####[facility] (DEFAULT)[address] [place] [address] 01521 MCV (RBC) [Entitic vol] 93 fL Normal 81-100 [facility] Comment on above: Performed By: #### 2 043226, 7053762572, 3043095, 20997430 ####[facility] (DEFAULT)[address] [place] [address] 52900 Platelet 291 x10 Normal 138-427 [facility] Comment on above: Performed By: #### 2 124584, 9397754535, 3072176, 90738436 ####[facility] (DEFAULT)[address] [place] [address] 01187 Platelet mean volume (Bld) [Entitic vol] 9.6 fL Normal 6.3-10.2 [facility] Comment on above: Performed By: #### 2 180520, 9848084391, 2393822, 61352981 ####[facility] (DEFAULT)[address] [place] [address] 55696 RBC 2.82 x10 Low 3.70-5.30 [facility] Comment on above: Performed By: #### 2 242264, 0474199483, 6231616, 86134535 ####[facility] (DEFAULT)[address] [place] [address] 96948 WBC 5.2 x10 Normal 3.5-10.5 [facility] Comment on above: Performed By: #### 2 371317, 0872024486, 1534177, 94121405 ####[facility] (DEFAULT)[address] [place] [address] 15828 Magnesiumon 08-11-2021 Magnesium [Mass/Vol] 1.43 mg/dL Low 1.80-2.50 [facility] Comment on above: Performed By: #### 2 780605, 5490995556, 6035975, 79578311 ####[facility] (DEFAULT)[address] [place] [address] 25833 PTH, Intact LCon 08-11-2021 PTH, Intact LC 125 pg/mL High 15-65 [facility] Comment on above: Result Comment: Perf ormed At: [facility] [address] [id number] Brenna Iyer PhD Ph:[phone] Performed By: #### 2 707493842, 76306267 ####[facility] (DEFAULT)[address] [place] [address] .Auto Diff 1on 08-10-2021 Auto Kingfisher % 8 % Normal 1-12 [facility] Comment on above: Performed By: #### 1 934053333, 0997777890, 2926635, 89209490, 0555427, 7667212505 ####[facility] (DEFAULT)[address] [place] [address] 28436 Baso Abs# 0.0 x10 Normal 0.0-0.2 [facility] Comment on above: Performed By: #### 1 735070125, 0746819635, 2668267, 82086857, 7596309, 7883785557 ####[facility] (DEFAULT)[address] [place] [address] 11256 Basophils/100 WBC (Bld) 0.8 % Normal 0.2-2.0 [facility] Comment on above: Performed By: #### 1 631224373, 9754384820, 0614781, 91348202, 0555405, 6081293939 ####[facility] (DEFAULT)[address] [place] [address] 37863 Eos Abs# 0.2 x10 Normal 0.0-0.4 [facility] Comment on above: Performed By: #### 1 103623164, 7100599030, 8427679, 91789251, 6590529, 1272934063 ####[facility] (DEFAULT)[address] [place] [address] 71643 Eosinophils/100 WBC (Bld) 3.3 % Normal 0.9-4.0 [facility] Comment on above: Performed By: #### 1 534818335, 6508047768, 5547372, 48535058, 2673523, 5472747562 ####[facility] (DEFAULT)[address] [place] [address] 12832 Lymph Abs# 1.2 x10 Low 1.3-2.9 [facility] Comment on above: Performed By: #### 1 894063529, 1349353095, 8457589, 96576414, 8036988, 6323843108 ####[facility] (DEFAULT)[address] [place] [address] 64746 Lymphocytes/100 WBC (Bld) 24 % Normal 14-48 [facility] Comment on above: Performed By: #### 1 590237977, 9527558142, 2710688, 36567212, 8397383, 0931950395 ####[facility] (DEFAULT)[address] [place] [address] 28572 Kingfisher Abs# 0.4 x10 Normal 0.0-0.8 [facility] Comment on above: Performed By: #### 1 941369136, 5184328246, 2459217, 16897792, 6601285, 3889452638 ####[facility] (DEFAULT)[address] [place] [address] Neut Abs# 3.1 x10 Normal 1.5-9.2 [facility] Comment on above: Performed By: #### 1 603288688, 3260084181, 7350975, 41409846, 1889388, 1152965538 ####[facility] (DEFAULT)[address] [place] [address] Neutrophils/100 WBC (Bld) 64 % Normal 44-88 [facility] Comment on above: Performed By: #### 1 569505478, 6108305945, 3298253, 89339358, 5779319, 5191765799 ####[facility] (DEFAULT)[address] [place] [address] 96360 Anesthesia Noteon 08-10-2021 Anesthesia Note Patient: SUSAN [...] on: 08/10/2021 10:12 EST] Rony Ordonez MD [facility] Anesthesia Note Patient: SUSAN RENE Age: 65 [...] on: 08/10/2021 10:00 EST] Rony Ordonez MD [facility] Anesthesia Note Patient: SUSAN RENE Age: 65 years Sex: FEMALE : 1955 Associated Diagnoses: None Author: Rony Ordonez MD Preoperative Information Anesthesia history: Patient history: No difficult intubation, No malignant hyperthermia. Family history: No malignant hyperthermia. Review of Systems Respiratory: recent COVID positive but no symptoms at present pulmonary payne, No shortness of breath, No apnea. 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 Hysterectomy (129281623). Social History Electronic Cigarette/Vaping Assessment Electronic Cigarette [...] % Auto Lymph % 24 % Auto Kingfisher % 8 % Auto Eos % 3.3 % Auto Baso % 0.8 % Neut Abs# 3.1 x103/mcL Lymph Abs# 1.2 x103/mcL LOW Kingfisher Abs# 0.4 x103/mcL Eos Abs# 0.2 x103/mcL Baso Abs# 0.0 x103/mcL Sodium Level 142.0 mmol/L Potassium Level 3.8 mmol/L Chloride Level 105 mmol/L CO2 25 mmol/L Anion Gap 16.0 mmol/L Glucose Level 74.0 mg/dL BUN 6 mg/dL LOW Creatinine Level 0.64 mg/dL BUN/Creat Ratio 9.0 eGFR AA >60 mL/min/1.73m2 NA eGFR Non A (more content not included)... Normal [facility] CBC w/ Auto Diffon 2 Erythrocyte distribution width (RBC) [Ratio] 18.0 % High 11.5-15.0 [facility] Comment on above: Performed By: #### 1 556037415, 9885709998, 0546696, 32269453, 4211426, 6140461937 ####[facility] (DEFAULT)[address] [place] [address] 20404 Hematocrit (Bld) [Volume fraction] 25.6 % Low 33.7-40.4 [facility] Comment on above: Performed By: #### 1 402911554, 4691513668, 9992427, 61574534, 0707248, 1314565363 ####[facility] (DEFAULT)[address] [place] [address] 21641 Hemoglobin (Bld) [Mass/Vol] 7.6 g/dL Low 11.3-15.9 [facility] Comment on above: Performed By: #### 1 766430547, 5000712693, 7095759, 05006238, 0029714, 2258192497 ####[facility] (DEFAULT)[address] [place] [address] 63080 Instr WBC 4.9 x10 Invalid Interpretation Code [facility] Comment on above: Performed By: #### 1 215171131, 7088160444, 0530225, 97609006, 6098467, 2772414182 ####[facility] (DEFAULT)[address] [place] [address] 28932 Man Diff? Auto Normal [facility] Comment on above: Performed By: #### 1 474604475, 2417743715, 5066945, 47400300, 8344888, 6377623836 ####[facility] (DEFAULT)[address] [place] [address] 71559 MCH (RBC) [Entitic mass] 28 pg Normal 24-34 [facility] Comment on above: Performed By: #### 1 497087632, 8105071193, 5174376, 35361022, 7240192, 4789485986 ####[facility] (DEFAULT)[address] [place] [address] MCHC (RBC) [Mass/Vol] 30 g/dL Normal 26-37 [facility] Comment on above: Performed By: #### 1 755106833, 3917529110, 8564124, 26397345, 0185046, 7706236446 ####[facility] (DEFAULT)[address] [place] [address] 59997 MCV (RBC) [Entitic vol] 93 fL Normal 81-100 [facility] Comment on above: Performed By: #### 1 638415453, 9410740391, 1038063, 97769368, 4130758, 8697222457 ####[facility] (DEFAULT)[address] [place] [address] 27109 Platelet 345 x10 Normal 138-427 [facility] Comment on above: Performed By: #### 1 218258509, 1053037513, 6276739, 26127955, 5667136, 4952959710 ####[facility] (DEFAULT)[address] [place] [address] 73422 Platelet mean volume (Bld) [Entitic vol] 9.3 fL Normal 6.3-10.2 [facility] Comment on above: Performed By: #### 1 111446511, 3319259497, 3394702, 64050423, 0584681, 2554426052 ####[facility] (DEFAULT)[address] [place] [address] 38325 RBC 2.74 x10 Low 3.70-5.30 [facility] Comment on above: Performed By: #### 1 825577979, 6211645348, 4641038, 48220666, 6259577, 4048632968 ####[facility] (DEFAULT)[address] [place] [address] WBC 4.9 x10 Normal 3.5-10.5 [facility] Comment on above: Performed By: #### 1 655026900, 0744844476, 9808886, 65781422, 4684512, 1999584481 ####[facility] (DEFAULT)[address] [place] [address] Standardon 08-10-2021 eGFR Non AA >60 Invalid Interpretation Code [facility] Comment on above: Performed By: #### 1 565485494, 2387367067, 2190497, 04326974, 6435627, 3787496057 ####[facility] (DEFAULT)[address] [place] [address] eGFR AA >60 Invalid Interpretation Code [facility] Comment on above: Result Comment: 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 Kidney Failure is indicated at less than 15 ml/min/1.73m2 Performed By: #### 1 047263264, 9348395468, 2659415, 33417851, 4504103, 5913103370 ####[facility] (DEFAULT)[address] [place] [address] 09485 Albumin [Mass/Vol] 3.3 g/dL Low 3.5-5.0 [facility] Comment on above: Performed By: #### 1 316887775, 7756165604, 5636009, 83357957, 7987114, 3211245191 ####[facility] (DEFAULT)[address] [place] [address] Albumin/Globulin [Mass ratio] 2.4 {ratio} Normal 1.4-2.6 [facility] Comment on above: Performed By: #### 1 705336850, 5599583891, 4137941, 49426989, 9001159, 6432835354 ####[facility] (DEFAULT)[address] [place] [address] Alk Phos 27 IU/L Low 32-91 [facility] Comment on above: Performed By: #### 1 465283737, 6413224892, 1541130, 43239504, 8274482, 9711545425 ####[facility] (DEFAULT)[address] [place] [address] ALT [Catalytic activity/Vol] 14.0 U/L Normal 14.0-54.0 [facility] Comment on above: Performed By: #### 1 944025832, 9472438246, 0929389, 79737883, 4469517, 1322492406 ####[facility] (DEFAULT)[address] [place] [address] Anion gap [Moles/Vol] 16.0 mmol/L Normal 5.0-19.0 [facility] Comment on above: Performed By: #### 1 514017317, 0878273519, 3587535, 59490154, 9770198, 8429836522 ####[facility] (DEFAULT)[address] [place] [address] AST [Catalytic activity/Vol] 23 U/L Normal 15-41 [facility] Comment on above: Performed By: #### 1 938424258, 5218700154, 8743355, 75714185, 7736709, 7806594126 ####[facility] (DEFAULT)[address] [place] [address] Bili Total 0.3 mg/dL Normal 0.3-1.2 [facility] Comment on above: Performed By: #### 1 432226413, 5154049305, 1446852, 89555625, 6062324, 6695187814 ####[facility] (DEFAULT)[address] [place] [address] 08687 Calcium [Mass/Vol] 6.4 mg/dL Low 8.9-10.3 [facility] Comment on above: Performed By: #### 1 048180967, 0189741525, 2372258, 50123889, 5730483, 9120259653 ####[facility] (DEFAULT)[address] [place] [address] 70991 Chloride [Moles/Vol] 105 mmol/L Normal 101-111 [facility] Comment on above: Performed By: #### 1 218178041, 0472189051, 1163925, 06839895, 9502679, 1720965390 ####[facility] (DEFAULT)[address] [place] [address] 24631 CO2 [Moles/Vol] 25 mmol/L Normal 21-32 [facility] Comment on above: Performed By: #### 1 732463282, 9991067437, 9687240, 07484930, 7229066, 7264703661 ####[facility] (DEFAULT)[address] [place] [address] 01511 Creatinine [Mass/Vol] 0.64 mg/dL Normal 0.60-1.30 [facility] Comment on above: Performed By: #### 1 162946025, 2779344777, 8464871, 90788878, 9756434, 5653191152 ####[facility] (DEFAULT)[address] [place] [address] 56381 Globulin (S) [Mass/Vol] 1.4 g/dL Low 1.5-4.3 [facility] Comment on above: Performed By: #### 1 659864779, 1605165400, 8026506, 02285070, 4869862, 9239008053 ####[facility] (DEFAULT)[address] [place] [address] 13126 Glucose [Mass/Vol] 74.0 mg/dL Normal 74.0-118.0 [facility] Comment on above: Performed By: #### 1 217824326, 5324965950, 3936654, 05317981, 7287832, 8748293710 ####[facility] (DEFAULT)[address] [place] [address] 56501 Osmolality 279 mOsm/L Invalid Interpretation Code [facility] Comment on above: Performed By: #### 1 778772506, 9468626137, 2076212, 71188827, 0227539, 6747683083 ####[facility] (DEFAULT)[address] [place] [address] 34531 Potassium [Moles/Vol] 3.8 mmol/L Normal 3.6-5.1 [facility] Comment on above: Performed By: #### 1 517142575, 4106417570, 8796867, 89443783, 9029983, 8367222910 ####[facility] (DEFAULT)[address] [place] [address] 17598 Protein [Mass/Vol] 4.7 g/dL Low 6.5-8.1 [facility] Comment on above: Performed By: #### 1 246021694, 2011017998, 7882255, 97846307, 7342183, 3867814489 ####[facility] (DEFAULT)[address] [place] [address] 08361 Sodium [Moles/Vol] 142.0 mmol/L Normal 136.0-144.0 [facility] Comment on above: Performed By: #### 1 328236923, 9660346667, 3588958, 35051935, 5253034, 9586652397 ####[facility] (DEFAULT)[address] [place] [address] 26202 Urea nitrogen [Mass/Vol] 6 mg/dL Low 8-26 [facility] Comment on above: Performed By: #### 1 225165901, 4270690689, 7479086, 20989222, 8320116, 4267349063 ####[facility] (DEFAULT)[address] [place] [address] 08237 Urea nitrogen/Creatinin e [Mass ratio] 9.0 mg/mg Normal 4.6-16.2 [facility] Comment on above: Performed By: #### 1 684200536, 2469492720, 5267936, 72021656, 4327676, 6239890509 ####[facility] (DEFAULT)[address] [place] [address] 29611 Extra Greyon 08-10-2021 Tube Collected Yes Invalid Interpretation Code [facility] Comment on above: Performed By: #### 2 609345505, 02760988 ####[facility] (DEFAULT)[address] [place] [address] 64633 Extra Redon 08-10-2021 Tube Collected Yes Invalid Interpretation Code [facility] Comment on above: Performed By: #### 1 521912385, 3054031888, 9469653, 89120596, 4035101, 8917718547 ####[facility] (DEFAULT)[address] [place] [address] 24138 MAGR Intraoperative Recordon 08-10-2021 MAGR Intraoperative Record MAGR Intra-Op Record Summary Primary Physician: Noe Reed MD Finalized Date/Time: 08/10/21 10:21:22 Pt. Name: RENEASHVIN /Sex: 1955 FEMALE Med Rec #: [id number] Physician: Norman Hughes MD Financial #: [id number] Pt. Type: I Room/Bed: [facility] [place] 2] Admit/Disch: 08/06/21 17:10:50 - Institution: Case Times [...] Role Performed Surgeon - Primary Anesthesiologist of Medical Physiologist Record Time In 08/10/21 09:00:00 08/10/21 09:00:00 08/10/21 09:00:00 Time Out 08/10/21 10:01:00 08/10/21 10:01:00 08/10/21 10:01:00 Procedure Esophagogastroduodenosco Esophagogastroduodenosco Esophagogastroduodenosco py and Colonosco py and Colonosco py and [place]os[place] Last Modified By: Helena Sandoval 08/10/21 Helena Sandoval 08/10/21 Helena Sandoval 08/10/21 10:19:10 10:19:10 10:19:10 Entry 4 Entry 5 Case Attendee Mandy Perdomo RN, Regina CST Role Performed Medical Physiologist Scrub Personnel Time In 08/10/21 09:00:00 08/10/21 [...] injury r (more content not included)... Normal [facility] Magnesiumon 08-10-2021 Magnesium [Mass/Vol] 1.50 mg/dL Low 1.80-2.50 [facility] Comment on above: Performed By: #### 1 [id number], 1741109512, 7460475, 39335064, 7246807, 3290498519 ####[facility] (DEFAULT)[address] [place] [address] Nutrition Noteon 08-10-2021 Nutrition Note No new wts, Per inta ke records, Pt intake ranging 25-100%, eating better for lunch. Pt also taking supplements well. These appear to have been discontinued for scheduled colonscopy/EGD this am and not resumed. Per MD notes, tests unremarkable. With improving intake avg >/+ 50% of most meals, will hold off from re-adding Ensure. Will continue to monitor. [facility] Progress Note - Nurseon 07-15 Progress Note - Nurse pt returns from recovery. alert and drowsy. iv intact. pt able to tolerate water with no issues. denies pain. report received from holly perdomo RN. will continue to monitor. [Electronically Signed on: 08/10/2021 11:35 EST] Joslyn Roth RN [Verified on: 08/10/2021 11:35 EST] Joslyn Roth RN [facility] Telemetry Stripson 2 Telemetry Strips [id number]#1.00OTGTIFF [facility] Telemetry Strips [id number]#1.00OTGTIFF [facility] .Auto Diff 1on 08-09-2021 Auto Kingfisher % 10 % Normal 07-25 [facility] Comment on above: Performed By: #### 2 324511, 7474488137, 2605242, 61381647 ####[facility] (DEFAULT)[address] [place] [address] 94337 Baso Abs# 0.0 x10 Normal 0.0-0.2 [facility] Comment on above: Performed By: #### 2 [id number], [id number], [id number], [id number] ####[facility] (DEFAULT)[address] [place] [address] [id number] Basophils/100 WBC (Bld) 0.6 % Normal 0.2-2.0 [facility] Comment on above: Performed By: #### 2 [id number], [id number], [id number], [id number] ####[facility] (DEFAULT)[address] [place] [address] [id number] Eos Abs# 0.2 x10 Normal 0.0-0.4 [facility] Comment on above: Performed By: #### 2 [id number], [id number], [id number], [id number] ####[facility] (DEFAULT)[address] [place] [address] [id number] Eosinophils/100 WBC (Bld) 3.3 % Normal 0.9-4.0 [facility] Comment on above: Performed By: #### 2 [id number], [id number], [id number], [id number] ####[facility] (DEFAULT)[address] [place] [address] 89112 Lymph Abs# 1.2 x10 Low 1.3-2.9 [facility] Comment on above: Performed By: #### 2 112441, [id number], 4897856, 84024405 ####[facility] (DEFAULT)[address] [place] [address] 36891 Lymphocytes/100 WBC (Bld) 21 % Normal 14-48 [facility] Comment on above: Performed By: #### 2 947944, [id number], 8243634, 29894341 ####[facility] (DEFAULT)[address] [place] [address] 77386 Kingfisher Abs# 0.5 x10 Normal 0.0-0.8 [facility] Comment on above: Performed By: #### 2 634744, [id number], 1905698, 52467167 ####[facility] (DEFAULT)[address] [place] [address] 82726 Neut Abs# 3.6 x10 Normal 1.5-9.2 [facility] Comment on above: Performed By: #### 2 556240, 1888355544, 7940443, 96848685 ####[facility] (DEFAULT)[address] [place] [address] Neutrophils/100 WBC (Bld) 65 % Normal 44-88 [facility] Comment on above: Performed By: #### 2 089164, [id number], 2890593, 00098541 ####[facility] (DEFAULT)[address] [place] [address] Standardon 08-09-2021 eGFR Non AA >60 Invalid Interpretation Code [facility] Comment on above: Performed By: #### 2 159038, [id number], 0006761, 79925350 ####[facility] (DEFAULT)[address] [place] [address] eGFR AA >60 Invalid Interpretation Code [facility] Comment on above: Result Comment: 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 Kidney Failure is indicated at less than 15 ml/min/1.73m2 Performed By: #### 2 352239, [id number], 3852785, 78099507 ####[facility] (DEFAULT)[address] [place] [address] Anion gap [Moles/Vol] 16.0 mmol/L Normal 5.0-19.0 [facility] Comment on above: Performed By: #### 2 491632, 0400979738, 1846469, 48834392 ####[facility] (DEFAULT)[address] [place] [address] Calcium [Mass/Vol] 6.2 mg/dL Low 8.9-10.3 [facility] Comment on above: Performed By: #### 2 028380, 3395466723, 4303138, 97125893 ####[facility] (DEFAULT)[address] [place] [address] 05403 Chloride [Moles/Vol] 107 mmol/L Normal 101-111 [facility] Comment on above: Performed By: #### 2 107932, 4722907380, 2637754, 89305992 ####[facility] (DEFAULT)[address] [place] [address] 53763 CO2 [Moles/Vol] 24 mmol/L Normal 21-32 [facility] Comment on above: Performed By: #### 2 238815, 5974110027, 3623202, 99106222 ####[facility] (DEFAULT)[address] [place] [address] 19808 Creatinine [Mass/Vol] 0.72 mg/dL Normal 0.60-1.30 [facility] Comment on above: Performed By: #### 2 273171, 2005728432, 9899785, 09229503 ####[facility] (DEFAULT)[address] [place] [address] 62446 Glucose [Mass/Vol] 79.0 mg/dL Normal 74.0-118.0 [facility] Comment on above: Performed By: #### 2 450931, 7468950383, 1069975, 10970466 ####[facility] (DEFAULT)[address] [place] [address] 79746 Osmolality 282 mOsm/L Invalid Interpretation Code [facility] Comment on above: Performed By: #### 2 537212, [id number], 2113350, 74603816 ####[facility] (DEFAULT)[address] [place] [address] 27145 Potassium [Moles/Vol] 3.9 mmol/L Normal 3.6-5.1 [facility] Comment on above: Performed By: #### 2 035100, 8418969556, 4780069, 37529210 ####[facility] (DEFAULT)[address] [place] [address] 11055 Sodium [Moles/Vol] 143.0 mmol/L Normal 136.0-144.0 [facility] Comment on above: Performed By: #### 2 371718, 8953378101, 3656859, 55001634 ####[facility] (DEFAULT)[address] [place] [address] Urea nitrogen [Mass/Vol] 8 mg/dL Normal 8-26 [facility] Comment on above: Performed By: #### 2 380120, 4520776569, 1978789, 49271032 ####[facility] (DEFAULT)[address] [place] [address] 75250 Urea nitrogen/Creatinin e [Mass ratio] 11.0 mg/mg Normal 4.6-16.2 [facility] Comment on above: Performed By: #### 2 368994, 6953794567, 9352513, 81699534 ####[facility] (DEFAULT)[address] [place] [address] CBC w/ Auto Diffon Erythrocyte distribution width (RBC) [Ratio] 17.9 % High 11.5-15.0 [facility] Comment on above: Performed By: #### 2 211536, 3953247787, 6626787, 05156734 ####[facility] (DEFAULT)[address] [place] [address] 48853 Hematocrit (Bld) [Volume fraction] 24.1 % Low 33.7-40.4 [facility] Comment on above: Performed By: #### 2 222514, 2202706453, 3465098, 30675873 ####[facility] (DEFAULT)[address] [place] [address] Hemoglobin (Bld) [Mass/Vol] 7.2 g/dL Low 11.3-15.9 [facility] Comment on above: Result Comment: RIGO barrientos, pt received 1 unit on 08/06/21 Performed By: #### 2 755731, 1244337725, 4277404, 17500031 ####[facility] (DEFAULT)[address] [place] [address] Instr WBC 5.4 x10 Invalid Interpretation Code [facility] Comment on above: Performed By: #### 2 162392, 2026626815, 4732561, 25520958 ####[facility] (DEFAULT)[address] [place] [address] Man Diff? Auto Normal [facility] Comment on above: Performed By: #### 2 817504, 0833382523, 6204800, 74096879 ####[facility] (DEFAULT)[address] [place] [address] 83557 MCH (RBC) [Entitic mass] 28 pg Normal 24-34 [facility] Comment on above: Performed By: #### 2 560887, 0464738351, 1294556, 76963230 ####[facility] (DEFAULT)[address] [place] [address] 58599 MCHC (RBC) [Mass/Vol] 30 g/dL Normal 26-37 [facility] Comment on above: Performed By: #### 2 093363, 6925205659, 2710407, 10487194 ####[facility] (DEFAULT)[address] [place] [address] MCV (RBC) [Entitic vol] 94 fL Normal 81-100 [facility] Comment on above: Performed By: #### 2 060397, 9061825671, 3161421, 53396829 ####[facility] (DEFAULT)[address] [place] [address] Platelet 336 x10 Normal 138-427 [facility] Comment on above: Performed By: #### 2 440754, 9230596955, 3683231, 77956408 ####[facility] (DEFAULT)[address] [place] [address] Platelet mean volume (Bld) [Entitic vol] 9.5 fL Normal 6.3-10.2 [facility] Comment on above: Performed By: #### 2 310144, 4127074491, 2088536, 04536374 ####[facility] (DEFAULT)[address] [place] [address] RBC 2.57 x10 Low 3.70-5.30 [facility] Comment on above: Performed By: #### 2 318340, 2962274402, 8821269, 53929587 ####[facility] (DEFAULT)[address] [place] [address] 08504 WBC 5.4 x10 Normal 3.5-10.5 [facility] Comment on above: Performed By: #### 2 565579, 4850146348, 3667874, 43412995 ####[facility] (DEFAULT)[address] [place] [address] 43924 Cortisol LCon 08-09-2021 Cortisol LC 15.5 ug/dL Invalid Interpretation Code [facility] Comment on above: Result Comment: Quinton isol AM 6.2 - 19.4 Cortisol PM 2.3 - 11.9 Performed At: [facility] [address] [id number] Brenna Iyer PhD Ph:[phone] Performed By: #### 7 008617, 44638254, 5513120, [id number] #### [facility] (DEFAULT) [address] [place] [address] 60159 Lab - AP Resultson 2 Lab - AP Results [id number]#1.00OTGTIFF Normal [facility] Magnesiumon 08-09-2021 Magnesium [Mass/Vol] 1.56 mg/dL Low 1.80-2.50 [facility] Comment on above: Performed By: #### 2 321934, 1086986426, 7854217, 46122699 ####[facility] (DEFAULT)[address] [place] [address] 80293 Telemetry Stripson 2 Telemetry Strips [id number]#1.00OTGTIFF Normal [facility] .Auto Diff 1on 08-08-2021 Auto Kingfisher % 8 % Normal -12 [facility] Comment on above: Performed By: #### 7 213534, 82513988, 5847267, [id number] #### [facility] (DEFAULT) [address] [place] [address] 58158 Baso Abs# 0.0 x10 Normal 0.0-0.2 [facility] Comment on above: Performed By: #### 7 447050, 34349408, 2475966, 2823209837 #### [facility] (DEFAULT) [address] [place] [address] 58819 Basophils/100 WBC (Bld) 0.8 % Normal 0.2-2.0 [facility] Comment on above: Performed By: #### 7 424054, 74056332, 9284484, 8709090714 #### [facility] (DEFAULT) [address] [place] [address] 55579 Eos Abs# 0.2 x10 Normal 0.0-0.4 [facility] Comment on above: Performed By: #### 7 070860, 19287361, 7760551, 1630228588 #### [facility] (DEFAULT) [address] [place] [address] 80850 Eosinophils/100 WBC (Bld) 2.6 % Normal 0.9-4.0 [facility] Comment on above: Performed By: #### 7 556401, 26203665, 3263486, [id number] #### [facility] (DEFAULT) [address] [place] [address] 32794 Lymph Abs# 1.8 x10 Normal 1.3-2.9 [facility] Comment on above: Performed By: #### 7 204253, 73429785, 7215281, 6076584729 #### [facility] (DEFAULT) [address] [place] [address] 31306 Lymphocytes/100 WBC (Bld) 27 % Normal 14-48 [facility] Comment on above: Performed By: #### 7 435943, 70499490, 4304972, 3004026849 #### [facility] (DEFAULT) [address] [place] [address] 74690 Kingfisher Abs# 0.5 x10 Normal 0.0-0.8 [facility] Comment on above: Performed By: #### 7 922684, 92216314, 9929117, 1226282355 #### [facility] (DEFAULT) [address] [place] [address] 25525 Neut Abs# 4.0 x10 Normal 1.5-9.2 [facility] Comment on above: Performed By: #### 7 133003, 59192869, 7873190, 3808082645 #### [facility] (DEFAULT) [address] [place] [address] Neutrophils/100 WBC (Bld) 62 % Normal 44-88 [facility] Comment on above: Performed By: #### 7 913425, 73880251, 4113908, 1803158230 #### [facility] (DEFAULT) [address] [place] [address] Ambulance Noteon 08-08-2021 Ambulance Note [id number]#1.00OTGTIFF Normal [facility] BMP Standardon 08-08-2021 eGFR Non AA >60 Invalid Interpretation Code [facility] Comment on above: Performed By: #### 7 158425, 99200557, 2511767, 7941058878 #### [facility] (DEFAULT) [address] [place] [address] eGFR AA >60 Invalid Interpretation Code [facility] Comment on above: Result Comment: 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 Kidney Failure is indicated at less than 15 ml/min/1.73m2 Performed By: #### 7 876763, 79009009, 2496364, 1553855188 #### [facility] (DEFAULT) [address] [place] [address] 79567 Anion gap [Moles/Vol] 15.0 mmol/L Normal 5.0-19.0 [facility] Comment on above: Performed By: #### 7 739846, 80662827, 9153014, 9674510619 #### [facility] (DEFAULT) [address] [place] [address] 00929 Calcium [Mass/Vol] 5.9 mg/dL Critically abnormal 8.9-10.3 [facility] Comment on above: Result Comment: Crit ical CALC 5.9 result called and read back ok to: DEMETRA DAS RN 2S at: 05:25:23 08/08/2021 by: SYBIL Performed By: #### 7 060123, 24546597, 0591901, [id number] #### [facility] (DEFAULT) [address] [place] [address] 63842 Chloride [Moles/Vol] 109 mmol/L Normal 101-111 [facility] Comment on above: Performed By: #### 7 819782, 66365957, 6483206, 9588306756 #### [facility] (DEFAULT) [address] [place] [address] 32820 CO2 [Moles/Vol] 20 mmol/L Low 21-32 [facility] Comment on above: Performed By: #### 7 796581, 64271693, 5738357, 2474691554 #### [facility] (DEFAULT) [address] [place] [address] 72014 Creatinine [Mass/Vol] 0.68 mg/dL Normal 0.60-1.30 [facility] Comment on above: Performed By: #### 7 100844, 53341598, 5044831, 4681791207 #### [facility] (DEFAULT) [address] [place] [address] 67116 Glucose [Mass/Vol] 82.0 mg/dL Normal 74.0-118.0 [facility] Comment on above: Performed By: #### 7 089501, 38457187, 4399529, 4986747053 #### [facility] (DEFAULT) [address] [place] [address] 74403 Osmolality 277 mOsm/L Invalid Interpretation Code [facility] Comment on above: Performed By: #### 7 058272, 83533505, 7845865, 0548859535 #### [facility] (DEFAULT) [address] [place] [address] 66520 Potassium [Moles/Vol] 3.6 mmol/L Normal 3.6-5.1 [facility] Comment on above: Performed By: #### 7 489589, 83424306, 2351689, 2287650066 #### [facility] (DEFAULT) [address] [place] [address] 22410 Sodium [Moles/Vol] 140.0 mmol/L Normal 136.0-144.0 [facility] Comment on above: Performed By: #### 7 695215, 95889677, 7981340, 0415314584 #### [facility] (DEFAULT) [address] [place] [address] 88408 Urea nitrogen [Mass/Vol] 9 mg/dL Normal 8- [facility] Comment on above: Performed By: #### 7 876267, 47935507, 1123656, 1564937639 #### [facility] (DEFAULT) [address] [place] [address] Urea nitrogen/Creatinin e [Mass ratio] 13.0 mg/mg Normal 4.6-16.2 [facility] Comment on above: Performed By: #### 7 478596, 29278165, 9504503, 0651599815 #### [facility] (DEFAULT) [address] [place] [address] CBC w/ Auto Diffon Erythrocyte distribution width (RBC) [Ratio] 18.4 % High 11.5-15.0 [facility] Comment on above: Performed By: #### 1 214935360, 0642214, 94269016, 9424895 #### [facility] (DEFAULT) [address] [place] [address] Hematocrit (Bld) [Volume fraction] 31.6 % Low 33.7-40.4 [facility] Comment on above: Performed By: #### 1 461982295, 5279615, 96335801, 9880253 #### [facility] (DEFAULT) [address] [place] [address] 43999 Hemoglobin (Bld) [Mass/Vol] 9.6 g/dL Low 11.3-15.9 [facility] Comment on above: Performed By: #### 1 613143054, 7655903, 52194341, 2555938 #### [facility] (DEFAULT) [address] [place] [address] Instr WBC 6.5 x10 Invalid Interpretation Code [facility] Comment on above: Performed By: #### 1 931676876, 3577683, 12618814, 3602236 #### [facility] (DEFAULT) [address] [place] [address] Man Diff? Auto Normal [facility] Comment on above: Performed By: #### 1 074588932, 2241601, 05958562, 2800943 #### [facility] (DEFAULT) [address] [place] [address] 78927 MCH (RBC) [Entitic mass] 28 pg Normal 24-34 [facility] Comment on above: Performed By: #### 1 408912880, 3569989, 00141918, 9354240 #### [facility] (DEFAULT) [address] [place] [address] 19213 MCHC (RBC) [Mass/Vol] 30 g/dL Normal 26-37 [facility] Comment on above: Performed By: #### 1 070399081, 2830449, 87240119, 2890582 #### [facility] (DEFAULT) [address] [place] [address] 55161 MCV (RBC) [Entitic vol] 92 fL Normal 81-100 [facility] Comment on above: Performed By: #### 1 472134322, 1107401, 73156197, 0367517 #### [facility] (DEFAULT) [address] [place] [address] 13638 Platelet 450 x10 High 138-427 [facility] Comment on above: Performed By: #### 1 972154180, 2149077, 74279972, 0791152 #### [facility] (DEFAULT) [address] [place] [address] 76384 Platelet mean volume (Bld) [Entitic vol] 9.4 fL Normal 6.3-10.2 [facility] Comment on above: Performed By: #### 1 513762780, 9711661, 22136131, 8816377 #### [facility] (DEFAULT) [address] [place] [address] 29525 RBC 3.45 x10 Low 3.70-5.30 [facility] Comment on above: Performed By: #### 1 964045977, 4915082, 59571872, 7158334 #### [facility] (DEFAULT) [address] [place] [address] 01615 WBC 6.5 x10 Normal 3.5-10.5 [facility] Comment on above: Performed By: #### 1 166566889, 6524225, 40750342, 2531067 #### [facility] (DEFAULT) [address] [place] [address] 66918 CRPon 08-08-2021 CRP 0.6 mg/dL High <=0.5 [facility] Comment on above: Performed By: #### 7 079779, 93278209, 5869892, 1609361042 #### [facility] (DEFAULT) [address] [place] [address] 35669 Haptoglobin LCon 08-08-2021 Haptoglobin LC 162 mg/dL Invalid Interpretation Code 59-741 [facility] Comment on above: Result Comment: Perf ormed At: [facility] [address] [id number] Brenna Iyer PhD Ph:[phone] Performed By: #### 1 [id number], 7007498, 34937545, 6205180 #### [facility] (DEFAULT) [address] [place] [address] 77789 Magnesiumon 08-08-2021 Magnesium [Mass/Vol] 1.47 mg/dL Low 1.80-2.50 [facility] Comment on above: Performed By: #### 7 334421, 56735773, 3955965, 6246957265 #### [facility] (DEFAULT) [address] [place] [address] 05275 Nutrition Noteon 08-08-2021 SARS-CoV-2 (COVID-19) RNA JESSICA+probe [...] Ensure Compact BIDWM and monitor acceptance. Normal [facility] Telemetry Stripson Telemetry Strips [id number]#1.00OTGTIFF Normal [facility] .Auto Diff 1on 08-07-2021 Auto Kingfisher % 8 % Normal -12 [facility] Comment on above: Performed By: #### 1 [id number], 5747797, 55300699, 6519109 #### [facility] (DEFAULT) [address] [place] [address] 54943 Baso Abs# 0.0 x10 Normal 0.0-0.2 [facility] Comment on above: Performed By: #### 1 589039340, 8502949, 24183013, 3417893 #### [facility] (DEFAULT) [address] [place] [address] 14001 Basophils/100 WBC (Bld) 0.6 % Normal 0.2-2.0 [facility] Comment on above: Performed By: #### 1 186830871, 3240795, 48240347, 7535644 #### [facility] (DEFAULT) [address] [place] [address] 03361 Eos Abs# 0.1 x10 Normal 0.0-0.4 [facility] Comment on above: Performed By: #### 1 923512916, 5761299, 44817523, 5297134 #### [facility] (DEFAULT) [address] [place] [address] 89352 Eosinophils/100 WBC (Bld) 1.3 % Normal 0.9-4.0 [facility] Comment on above: Performed By: #### 1 169888080, 3875153, 61134993, 9052066 #### [facility] (DEFAULT) [address] [place] [address] 54360 Lymph Abs# 1.6 x10 Normal 1.3-2.9 [facility] Comment on above: Performed By: #### 1 442542163, 3244509, 45829466, 4894204 #### [facility] (DEFAULT) [address] [place] [address] Lymphocytes/100 WBC (Bld) 24 % Normal 14-48 [facility] Comment on above: Performed By: #### 1 109295638, 5200049, 80065759, 3790873 #### [facility] (DEFAULT) [address] [place] [address] Kingfisher Abs# 0.6 x10 Normal 0.0-0.8 [facility] Comment on above: Performed By: #### 1 044015417, 4839042, 92026448, 2692901 #### [facility] (DEFAULT) [address] [place] [address] Neut Abs# 4.4 x10 Normal 1.5-9.2 [facility] Comment on above: Performed By: #### 1 833239790, 4964420, 23093240, 6718354 #### [facility] (DEFAULT) [address] [place] [address] Neutrophils/100 WBC (Bld) 65 % Normal 44-88 [facility] Comment on above: Performed By: #### 1 769686535, 8770561, 61621404, 2937908 #### [facility] (DEFAULT) [address] [place] [address] CBC w/ Auto Diffon 2 Erythrocyte distribution width (RBC) [Ratio] 18.4 % High 11.5-15.0 [facility] Comment on above: Performed By: #### 1 914946419, 4523507, 60317734, 7246636 #### [facility] (DEFAULT) [address] [place] [address] Hematocrit (Bld) [Volume fraction] 33.1 % Low 33.7-40.4 [facility] Comment on above: Performed By: #### 1 470035253, 3037461, 64158838, 5879375 #### [facility] (DEFAULT) [address] [place] [address] 50453 Hemoglobin (Bld) [Mass/Vol] 9.9 g/dL Low 11.3-15.9 [facility] Comment on above: Result Comment: Charo ent received 1 unit of PRBC's on 08/06/21 Performed By: #### 1 [id number], 6981639, 28836590, 1643048 #### [facility] (DEFAULT) [address] [place] [address] 21826 Instr WBC 6.7 x10 Invalid Interpretation Code [facility] Comment on above: Performed By: #### 1 437233383, 6168871, 82346236, 5207657 #### [facility] (DEFAULT) [address] [place] [address] 07545 Man Diff? Auto Normal [facility] Comment on above: Performed By: #### 1 745745302, 6403102, 90523471, 8007777 #### [facility] (DEFAULT) [address] [place] [address] 49238 MCH (RBC) [Entitic mass] 28 pg Normal 24-34 [facility] Comment on above: Performed By: #### 1 686120276, [id number] #### [facility] (DEFAULT) [address] [place] [address] [id number] MCHC (RBC) [Mass/Vol] 30 g/dL Normal 26-37 [facility] Comment on above: Performed By: #### 1 [id number] #### [facility] (DEFAULT) [address] [place] [address] [id number] MCV (RBC) [Entitic vol] 92 fL Normal 81-100 [facility] Comment on above: Performed By: #### 1 [id number] #### [facility] (DEFAULT) [address] [place] [id number] Platelet 515 x10 High 138-427 [facility] Comment on above: Performed By: #### 1 [id number] #### [facility] (DEFAULT) [address] [place] [address] Platelet mean volume (Bld) [Entitic vol] 9.0 fL Normal 6.3-10.2 [facility], Inc Comment on above: Performed By: #### 1 [id number], 6103198, 73894641, 1207719 #### [facility] (DEFAULT) [address] [place] [address] 20805 RBC 3.60 x10 Low 3.70-5.30 [facility] Comment on above: Performed By: #### 1 [id number], 9749812, 63745254, 0950144 #### [facility] (DEFAULT) [address] [place] [address] 97017 WBC 6.7 x10 Normal 3.5-10.5 [facility] Comment on above: Performed By: #### 1 [id number], 9447401, 52206258, 2531795 #### [facility] (DEFAULT) [address] [place] [address] 60383 CMP Standardon 08-07-2021 Albumin [Mass/Vol] 1.6 g/dL Low 3.5-5.0 [facility] Comment on above: Order Comment: I had [...] blood work. CJ Performed By: #### 1 [id number], 9356972, 91632539, 6833650 #### [facility] (DEFAULT) [address] [place] [address] 07656 Albumin/Globulin [Mass ratio] 0.7 {ratio} Low 1.4-2.6 [facility] Comment on above: Order Comment: I had [...] blood work. CJ Performed By: #### 1 [id number], 9300684, 61799127, 7502479 #### [facility] (DEFAULT) [address] [place] [address] 30599 Alk Phos 48 IU/L Normal 32-91 [facility] Comment on above: Order Comment: I had [...] blood work. CJ Performed By: #### 1 [id number], 8789102, 21225535, 0312785 #### [facility] (DEFAULT) [address] [place] [address] 07306 ALT [Catalytic activity/Vol] 21.0 U/L Normal 14.0-54.0 [facility] Comment on above: Order Comment: I had [...] blood work. CJ Performed By: #### 1 [id number], 5594604, 50793254, 4421734 #### [facility] (DEFAULT) [address] [place] [address] 55281 Anion gap [Moles/Vol] 14.0 mmol/L Normal 5.0-19.0 [facility] Comment on above: Order Comment: I had [...] blood work. CJ Performed By: #### 1 [id number], 3971225, 73859988, 9415129 #### [facility] (DEFAULT) [address] [place] [address] 94029 AST [Catalytic activity/Vol] 26 U/L Normal 15-41 [facility] Comment on above: Order Comment: I had [...] blood work. CJ Performed By: #### 1 [id number], 0698695, 45071775, 1464392 #### [facility] (DEFAULT) [address] [place] [address] 43520 Bili Total 0.2 mg/dL Low 0.3-1.2 [facility] Comment on above: Order Comment: I had [...] blood work. CJ Performed By: #### 1 [id number], 9675449, 32993363, 3220385 #### [facility] (DEFAULT) [address] [place] [address] 10325 Calcium [Mass/Vol] 5.9 mg/dL Critically abnormal 8.9-10.3 [facility] Comment on above: Order Comment: I had [...] ALL 2am blood work. CJ Result Comment: Resu lts Called To Shiloh OBRIEN 2S By [facility] And Read Back For Confirmation On 08/07/2021 09:25:59 EST. Performed By: #### 1 [id number], 3203506, 63098009, 7422923 #### [facility] (DEFAULT) [address] [place] [address] 00411 Chloride [Moles/Vol] 108 mmol/L Normal 101-111 [facility] Comment on above: Order Comment: I had [...] blood work. CJ Performed By: #### 1 [id number], 4922105, 57849274, 9164925 #### [facility] (DEFAULT) [address] [place] [address] 37960 CO2 [Moles/Vol] 21 mmol/L Normal 21-32 [facility] Comment on above: Order Comment: I had [...] blood work. CJ Performed By: #### 1 [id number], 3982622, 30314813, 8244654 #### [facility] (DEFAULT) [address] [place] [address] 67575 Creatinine [Mass/Vol] 0.61 mg/dL Normal 0.60-1.30 [facility] Comment on above: Order Comment: I had [...] blood work. CJ Performed By: #### 1 [id number], 1852711, 89515172, 3240461 #### [facility] (DEFAULT) [address] [place] [address] 75354 Globulin (S) [Mass/Vol] 2.3 g/dL Normal 1.5-4.3 [facility] Comment on above: Order Comment: I had [...] blood work. CJ Performed By: #### 1 [id number], 1618252, 43194489, 9941748 #### [facility] (DEFAULT) [address] [place] [address] 28811 Glucose [Mass/Vol] 79.0 mg/dL Normal 74.0-118.0 [facility] Comment on above: Order Comment: I had [...] blood work. CJ Performed By: #### 1 [id number], 7248938, 48467172, 0327112 #### [facility] (DEFAULT) [address] [place] [address] 16404 Osmolality 277 mOsm/L Invalid Interpretation Code [facility] Comment on above: Order Comment: I had [...] blood work. CJ Performed By: #### 1 [id number], 7388170, 42462207, 6992714 #### [facility] (DEFAULT) [address] [place] [address] 49766 Potassium [Moles/Vol] 3.2 mmol/L Low 3.6-5.1 [facility] Comment on above: Order Comment: I had [...] IV T herapy Performed By: #### 1 [id number], 8009652, 90058980, 6068215 #### [facility] (DEFAULT) [address] [place] [address] 96669 Protein [Mass/Vol] 3.9 g/dL Low 6.5-8.1 [facility] Comment on above: Order Comment: I had [...] blood work. CJ Performed By: #### 1 [id number], 3265928, 16283017, 9092220 #### [facility] (DEFAULT) [address] [place] [address] 85726 Sodium [Moles/Vol] 140.0 mmol/L Normal 136.0-144.0 [facility] Comment on above: Order Comment: I had [...] blood work. CJ Performed By: #### 1 [id number], 2231146, 59742794, 1709719 #### [facility] (DEFAULT) [address] [place] [address] 90597 Urea nitrogen [Mass/Vol] 8 mg/dL Normal 8-26 [facility] Comment on above: Order Comment: I had [...] blood work. CJ Performed By: #### 1 [id number], 9518976, 32521638, 9820683 #### [facility] (DEFAULT) [address] [place] [address] Urea nitrogen/Creatinin e [Mass ratio] 13.0 mg/mg Normal 4.6-16.2 [facility] Comment on above: Order Comment: I had [...] blood work. CJ Performed By: #### 1 [id number], 5469790, 96768086, 6466458 #### [facility] (DEFAULT) [address] [place] [address] eGFR Non AA >60 Invalid Interpretation Code [facility] Comment on above: Order Comment: I had [...] blood work. CJ Performed By: #### 1 [id number], 8928162, 81759904, 0762711 #### [facility] (DEFAULT) [address] [place] [address] eGFR AA >60 Invalid Interpretation Code [facility] Comment on above: Order Comment: I had [...] ALL 2am blood work. CJ Result Comment: 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 Kidney Failure is indicated at less than 15 ml/min/1.73m2 Performed By: #### 1 [id number], 5882602, 00031502, 3618554 #### [facility] (DEFAULT) [address] [place] [address] Consent Formson 08-07-2021 Consent Forms [id number] Normal [facility] ED Clinical Summaryon 2021 ED Clinical Summary [facility] - Emergency Department [address] [place] [address] 43487 ED Clinical Summary PERSON INFORMATION Name: ASHVIN RENE Age: 65 Years Sex: FEMALE : 1955 MRN: Acct#: Visit Reason: General medical; ANEMIA, ELEVATED TROPONIN Arrival: 08/06/2021 17:10:50 Discharge: LOS: 000 05:17 Check In: 08/06/2021 17:10:50 Checkout:08/06/2021 22:27:57 Address: [address] [place] [address] PCP: TUSHAR SOLANO JR. PROVIDER INFORMATION Provider Role Assigned Unassigned Danni Souza ED PA 08/06/2021 17:12:50 08/06/2021 17:16:23 EVERTON NEGRON ED PA 08/06/2021 17:18:50 Jessica Al BAND MAKER Nurse 08/06/2021 17:45:27 08/06/2021 19:14:08 Gely Adan BAND MAKER Nurse 08/06/2021 19:14:09 VITALS INFORMATION Vital Sign [...] female [facility] department [facility] evaluation of low blood pressure possibility [...] not currently on diuretics secondary to her marine specialist stating that she should not take these. [...] -Pharynx is pink and dry NECK: -Supple ([id number]): non-tender. CARD: -Rate and rhythm: Regular -Edema: [...] was performed with patient's consent and nurse betting agency manager Jessica in the room the entire time -External rectal exam reveals no abnormalities -Digital rectal exam reveals no masses or polyps within reach of my finger, stool guaiac is positive Medical Decision Making 55-year-old female presenting to the emergency department for evaluation of low blood pressure taken manually at [facility] facility of 90/45 and possibility of looking mildly jaundiced. I discussed this with (more content not included)... Normal [facility] ED Patient Education Noteon 08-07-2021 ED Patient Education Note Education Materials [facility] ED Patient Summaryon 022 ED Patient Summary [facility] - Emergency Department [address] [place] [address] PATIENT DISCHARGE INSTRUCTIONS Patient Information Name: ASHVIN RENE Age: 65 Years Date of : 1955 Reason For Visit: General medical; ANEMIA, ELEVATED TROPONIN Arrival Time: 08/06/2021 17:10:50 Primary Care Physician: TUSHAR SOLANO JR. Attending Physician: Waqas Castro MD Comment: Visit Diagnosis: Diagnoses This Visit Anemia (D64.9) General medical ([id number]) GI bleed (K92.2) Peripheral edema (R60.9) Prescription Information: If you have been given a prescription for narcotics, seek immediate medical attention if you have any difficulty breathing or any sudden status changes such as confusion and sleepiness. If you or anyone you know is experiencing suicidal thoughts, mental health, alcohol and/or drug addiction problems; contact the [facility] 03/02 Crisis Hotline -Text 4HZZG to 632905. If you received any narcotics, sedation, or [...] and treatment you received today in the [facility] Emergency Department were for an urgent problem and are not intended as complete care. It is important for you to follow up with a doctor, nurse practitioner, or physician?s recruiting assistant for ongoing care. If your symptoms [...] so we can reach you if necessary. [facility] Emergency Department has provided you with a complete list of medications post discharge. Please inform your director of primary/provider of your visit and for further instruction [...] mg oral tablet) potassium chloride (Potassium Chloride (Aro-Ldmg-Vlj 10) 10 mEq oral tablet, extended release) [...] Weight Dosin. (more content not included)... Normal [facility] Ferritinon 08-07-2021 Ferritin [Mass/Vol] 14.2 ng/mL Normal 12.0-150.0 [facility] Comment on above: Performed By: #### 1 [id number], 6609504, 82444123, 1540407 #### [facility] (DEFAULT) [address] [place] [address] 23810 Folateon 08-07-2021 Folic Acid Level 6.62 ng/mL Normal 5.90-24.80 [facility] Comment on above: Result Comment: Norm al folate results > 3.0 ng/mL. Performed By: #### 1 [id number], 5822960, 60470426, 4413461 #### [facility] (DEFAULT) [address] [place] [address] Free T4on 08-07-2021 Free T4 [Mass/Vol] 1.30 ng/dL High 0.61-1.12 [facility] Comment on above: Result Comment: Spec imens that contain high levels of Biotin may cause false high results Performed By: #### 1 [id number], 5920074, 55248593, 2622901 #### [facility] (DEFAULT) [address] [place] [address] 12003 Iron Profileon 08-07-2021 Iron [Mass/Vol] 24.0 ug/dL Low 28.0-170.0 [facility] Comment on above: Performed By: #### 1 [id number], 3608429, 05351511, 1861314 #### [facility] (DEFAULT) [address] [place] [address] Iron Sat 15 % Low 20-55 [facility] Comment on above: Performed By: #### 1 [id number], 6923402, 67035737, 6857560 #### [facility] (DEFAULT) [address] [place] [address] TIBC 158 mcg/dL Low 250-400 [facility] Comment on above: Performed By: #### 1 [id number], 5057344, 08799710, 4260292 #### [facility] (DEFAULT) [address] [place] [address] Transferrin [Mass/Vol] 113.1 mg/dL Low 192.0-382.0 [facility] Comment on above: Performed By: #### 1 [id number], 6570026, 53047394, 1628966 #### [facility] (DEFAULT) [address] [place] [address] 01039 LDHon 08-07-2021 LDH 299.0 IU/L High 98.0-192.0 [facility] Comment on above: Performed By: #### 1 [id number], 0682250, 95652932, 3203656 #### [facility] (DEFAULT) [address] [place] [address] 40765 Magnesiumon 08-07-2021 Magnesium [Mass/Vol] 0.98 mg/dL Low 1.80-2.50 [facility] Comment on above: Performed By: #### 1 [id number], 2795022, 58512615, 1158496 #### [facility] (DEFAULT) [address] [place] [address] 49219 Occult Blood, Fecalon 2021 Internal QC OK? Pass Normal [facility] Comment on above: Performed By: #### 1 [id number], 4950477, 83410823, 3013982 #### [facility] (DEFAULT) [address] [place] [address] 49156 Occult Bld Stl Positive Abnormal Negative [facility] Comment on above: Performed By: #### 1 [id number], 1039533, 55449452, 0424996 #### [facility] (DEFAULT) [address] [place] [address] 65668 Path Reviewon 08-07-2021 Pathology Test See Report Normal [facility] Comment on above: Result Comment: Sepa rate report to follow. Sent to [facility] for Path Review Performed By: #### 1 [id number], 3091466, 32119541, 7643049 #### [facility] (DEFAULT) [address] [place] [address] 94696 Retic Counton 08-07-2021 Reticulocyte 2.8 % High 0.5-1.5 [facility] Comment on above: Performed By: #### 1 [id number], 7250952, 36091248, 0879423 #### [facility] (DEFAULT) [address] [place] [address] 22195 TSH w/ Reflex to FT4on 08-07 TSH Qn 16.54 m[IU]/L High 0.45-5.33 [facility] Comment on above: Result Comment: Gene ral Population (males and non- females, aged 21-88) 0.45 - 5.33 Females, 1st Trimester 0.05 - 3.70 Females, 2nd Trimester 0.31 - 4.35 Females, 3rd Trimester 0.41 - 5.18 Performed By: #### 1 [id number], 0064751, 03646983, 1784607 #### [facility] (DEFAULT) [address] [place] [address] Telemetry Stripson 2 Telemetry Strips [id number] Normal [facility] TnI HSon 08-07-2021 Troponin I High Sensitivity 16 pg/mL Critically abnormal <=15 [facility] Comment on above: Result Comment: Elev ated hsTnI 16 result called and read back ok to: SHILOH OBRIEN 2S at: 09:07:23 08/07/2021 by: TAPAN Male Baseline Delta 1Hr (Note pg/mL=ng/L) <20pg/mL 50-60% >20pg/mL 20% Female Baseline Delta 1Hr <15pg/mL 50-60% >15pg/mL 20% Other Baseline Delta 1Hr <18ng/mL 50-60% >18ng/mL 20% ([employer] Guidelines February 2018) Performed By: #### 1 [id number], 1894263, 11303064, 1203430 #### [facility] (DEFAULT) [address] [place] [address] Troponin I High Sensitivity 19 pg/mL Critically abnormal <=15 [facility] Comment on above: Result Comment: Elev ated hsTnI 19 result called and read back ok to: DEMETRA DAS RN 2S at: 02:25:36 08/07/2021 by: SYBIL Male Baseline Delta 1Hr (Note pg/mL=ng/L) <20pg/mL 50-60% >20pg/mL 20% Female Baseline Delta 1Hr <15pg/mL 50-60% >15pg/mL 20% Other Baseline Delta 1Hr <18ng/mL 50-60% >18ng/mL 20% ([employer] Guidelines February 2018) Performed By: #### 7 082186, 26873162, 3341497, [id number] #### [facility] (DEFAULT) [address] [place] [address] US Echocardiogram Completeon 08-07-2021 US Echocardiogram Complete [...] tricuspid regurgitation. Tim Harrington MD JOB #: [id number] bk Final Dictated by: Tim Harrington MD Dictated DT/TM: 08/08/21 8:50 Signed (Electronic Signature): Tim Harrington MD 08/09/21 8:25 am Normal [facility] Vit B12 Lvlon 08-07-2021 Vit B12 853 Normal 180-914 [facility] Comment on above: Performed By: #### 1 [id number], 2173538, 82507315, 5458659 #### [facility] (DEFAULT) [address] [place] [address] .Auto Diff 1on 08-06-2021 Auto Kingfisher % 7 % Normal 1-12 [facility] Comment on above: Performed By: #### 7 768737, 07744842, 0931236, [id number] #### [facility] (DEFAULT) [address] [place] [address] Baso Abs# 0.0 x10 Normal 0.0-0.2 [facility] Comment on above: Performed By: #### 7 914225, 15494062, 9443798, [id number] #### [facility] (DEFAULT) [address] [place] [address] Basophils/100 WBC (Bld) 0.5 % Normal 0.2-2.0 [facility] Comment on above: Performed By: #### 7 662909, 47565326, 2688080, [id number] #### [facility] (DEFAULT) [address] [place] [address] Eos Abs# 0.0 x10 Normal 0.0-0.4 [facility] Comment on above: Performed By: #### 7 917157, 88034722, 1344981, [id number] #### [facility] (DEFAULT) [address] [place] [address] Eosinophils/100 WBC (Bld) 0.7 % Low 0.9-4.0 [facility] Comment on above: Performed By: #### 7 722119, 31416125, 3874214, [id number] #### [facility] (DEFAULT) [address] [place] [address] Lymph Abs# 1.2 x10 Low 1.3-2.9 [facility] Comment on above: Performed By: #### 7 748774, 58846944, 2667733, [id number] #### [facility] (DEFAULT) [address] [place] [address] Lymphocytes/100 WBC (Bld) 16 % Normal 14-48 [facility] Comment on above: Performed By: #### 7 308777, 92081816, 5898438, [id number] #### [facility] (DEFAULT) [address] [place] [address] 78999 Kingfisher Abs# 0.5 x10 Normal 0.0-0.8 [facility] Comment on above: Performed By: #### 7 355150, 50248256, 9182768, [id number] #### [facility] (DEFAULT) [address] [place] [address] 34816 Neut Abs# 5.7 x10 Normal 1.5-9.2 [facility] Comment on above: Performed By: #### 7 278225, 51471650, 5491725, [id number] #### [facility] (DEFAULT) [address] [place] [address] Neutrophils/100 WBC (Bld) 76 % Normal 44-88 [facility] Comment on above: Performed By: #### 7 873720, 32276324, 6349307, [id number] #### [facility] (DEFAULT) [address] [place] [address] ABORhon 08-06-2021 ABO and Rh group Nom (Bld) Hx Check: Not Found Anti-A: 0 Anti-B: 0 Anti-D: 4+ DCon: 0 A1: 4+ B: 4+ ABORh Interp: O POS Invalid Interpretation Code [facility] Comment on above: Performed By: #### 7 495813, 37032919, 1114724, [id number] #### [facility] (DEFAULT) [address] [place] [address] 11044 ABORh Retypeon 08-06-2021 ABO and Rh group Nom (Bld) Ordered by Discern. Anti-A: 0 Anti-B: 0 Anti-D: 4+ DCon: 0 A1: 3+ B: 3+ ABORh Retype: O POS Invalid Interpretation Code [facility] Comment on above: Performed By: #### 7 080725, 74384916, 0850511, [id number] #### [facility] (DEFAULT) [address] [place] [address] 67083 ABSC Gelon 08-06-2021 ABSC Gel Negative Normal [facility] Comment on above: Performed By: #### 7 379015, 05655134, 8004757, [id number] #### [facility] (DEFAULT) [address] [place] [address] 83911 BNP.on 08-06-2021 Natriuretic peptide B (Bld) [Mass/Vol] 123.0 pg/mL High 0.0-100.0 [facility] Comment on above: Result Comment: BNP results greater than 100 pg/mL are considered abnormal and suggestive of patients with CHF. Higher BNP concentrations measured in the first 72 hours after an acute coronary syndorme are associated with an increased risk of , myocardial infarction, and CHF. Performed By: #### 7 337175, 38220630, 9136493, [id number] #### [facility] (DEFAULT) [address] [place] [address] Blood Bank IDon 08-06-2021 Blood Bank ID BBID: [id number] Invalid Interpretation Code [facility] Comment on above: Performed By: #### 7 644637, 62079416, 4482674, [id number] #### [facility] (DEFAULT) [address] [place] [address] CBC w/ Auto Diffon Erythrocyte distribution width (RBC) [Ratio] 19.4 % High 11.5-15.0 [facility] Comment on above: Performed By: #### 7 285042, 30248285, 1720517, [id number] #### [facility] (DEFAULT) [address] [place] [address] Hematocrit (Bld) [Volume fraction] 24.7 % Low 33.7-40.4 [facility] Comment on above: Performed By: #### 7 004377, 99460814, 3214946, [id number] #### [facility] (DEFAULT) [address] [place] [address] Hemoglobin (Bld) [Mass/Vol] 7.4 g/dL Low 11.3-15.9 [facility] Comment on above: Performed By: #### 7 341956, 88564384, 0659515, [id number] #### [facility] (DEFAULT) [address] [place] [address] Instr WBC 7.5 x10 Invalid Interpretation Code [facility] Comment on above: Performed By: #### 7 491020, 51446591, 3285188, [id number] #### [facility] (DEFAULT) [address] [place] [address] Man Diff? RBC Morph Only Normal [facility] Comment on above: Performed By: #### 7 986362, 03308390, 9616706, [id number] #### [facility] (DEFAULT) [address] [place] [address] MCH (RBC) [Entitic mass] 28 pg Normal 24-34 [facility] Comment on above: Performed By: #### 7 501616, 53441218, 9144464, [id number] #### [facility] (DEFAULT) [address] [place] [address] MCHC (RBC) [Mass/Vol] 30 g/dL Normal 26-37 [facility] Comment on above: Performed By: #### 7 987063, 86249475, 2966904, [id number] #### [facility] (DEFAULT) [address] [place] [address] MCV (RBC) [Entitic vol] 92 fL Normal 81-100 [facility] Comment on above: Performed By: #### 7 911511, 95454910, 8058843, [id number] #### [facility] (DEFAULT) [address] [place] [address] Platelet 533 x10 High 138-427 [facility] Comment on above: Performed By: #### 7 359466, 12083380, 8469077, [id number] #### [facility] (DEFAULT) [address] [place] [address] 68516 Platelet mean volume (Bld) [Entitic vol] 8.8 fL Normal 6.3-10.2 [facility] Comment on above: Performed By: #### 7 227102, 38588755, 5272289, [id number] #### [facility] (DEFAULT) [address] [place] [address] RBC 2.67 x10 Low 3.70-5.30 [facility] Comment on above: Performed By: #### 7 229413, 05897927, 4060521, [id number] #### [facility] (DEFAULT) [address] [place] [address] WBC 7.5 x10 Normal 3.5-10.5 [facility] Comment on above: Performed By: #### 7 344013, [id number], 8879087, [id number] #### [facility] (DEFAULT) [address] [place] [address] Standardon 08-06-2021 eGFR Non AA >60 Invalid Interpretation Code [facility] Comment on above: Performed By: #### 7 384985, [id number], 2648836, [id number] #### [facility] (DEFAULT) [address] [place] [address] eGFR AA >60 Invalid Interpretation Code [facility] Comment on above: Result Comment: 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 Kidney Failure is indicated at less than 15 ml/min/1.73m2 Performed By: #### 7 626390, [id number], 7698034, [id number] #### [facility] (DEFAULT) [address] [place] [address] Albumin [Mass/Vol] 1.6 g/dL Low 3.5-5.0 [facility] Comment on above: Performed By: #### 7 949132, [id number], 4415550, [id number] #### [facility] (DEFAULT) [address] [place] [address] Albumin/Globulin [Mass ratio] 0.7 {ratio} Low 1.4-2.6 [facility] Comment on above: Performed By: #### 7 942683, 60748589, 6610438, [id number] #### [facility] (DEFAULT) [address] [place] [address] Alk Phos 52 IU/L Normal 32-91 [facility] Comment on above: Performed By: #### 7 430443, 90111189, 8461454, [id number] #### [facility] (DEFAULT) [address] [place] [address] ALT [Catalytic activity/Vol] 23.0 U/L Normal 14.0-54.0 [facility] Comment on above: Performed By: #### 7 703039, 11703652, 3071618, [id number] #### [facility] (DEFAULT) [address] [place] [address] Anion gap [Moles/Vol] 14.0 mmol/L Normal 5.0-19.0 [facility] Comment on above: Performed By: #### 7 282463, 76781102, 8737494, [id number] #### [facility] (DEFAULT) [address] [place] [address] 66590 AST [Catalytic activity/Vol] 27 U/L Normal 15-41 [facility] Comment on above: Performed By: #### 7 975688, 16904707, 2484622, [id number] #### [facility] (DEFAULT) [address] [place] [address]14 Bili Total 0.4 mg/dL Normal 0.3-1.2 [facility] Comment on above: Performed By: #### 7 726354, 11522585, 0817160, [id number] #### [facility] (DEFAULT) [address] [place] [address]98 Calcium [Mass/Vol] 6.1 mg/dL Low 8.9-10.3 [facility] Comment on above: Performed By: #### 7 422038, 13366121, 1264539, [id number] #### [facility] (DEFAULT) [address] [place] [address] Chloride [Moles/Vol] 108 mmol/L Normal 101-111 [facility] Comment on above: Performed By: #### 7 174677, 24284909, 9206192, [id number] #### [facility] (DEFAULT) [address] [place] [address] 18617 CO2 [Moles/Vol] 21 mmol/L Normal 21-32 [facility] Comment on above: Performed By: #### 7 254386, 93903477, 8560715, [id number] #### [facility] (DEFAULT) [address] [place] [address] 17769 Creatinine [Mass/Vol] 0.64 mg/dL Normal 0.60-1.30 [facility] Comment on above: Performed By: #### 7 298597, 77880934, 7771214, [id number] #### [facility] (DEFAULT) [address] [place] [address] Globulin (S) [Mass/Vol] 2.4 g/dL Normal 1.5-4.3 [facility] Comment on above: Performed By: #### 7 769573, 85444004, 6221145, [id number] #### [facility] (DEFAULT) [address] [place] [address] 99251 Glucose [Mass/Vol] 118.0 mg/dL Normal 74.0-118.0 [facility] Comment on above: Performed By: #### 7 103527, 34849714, 2565663, [id number] #### [facility] (DEFAULT) [address] [place] [address] 479[address] Osmolality 277 mOsm/L Invalid Interpretation Code [facility] Comment on above: Performed By: #### 7 546132, 21927267, 7514511, [id number] #### [facility] (DEFAULT) [address] [place] [address] 72738 Potassium [Moles/Vol] 3.8 mmol/L Normal 3.6-5.1 [facility] Comment on above: Performed By: #### 7 803833, 80230957, 4433667, [id number] #### [facility] (DEFAULT) [address] [place] [address] 98881 Protein [Mass/Vol] 4.0 g/dL Low 6.5-8.1 [facility] Comment on above: Performed By: #### 7 605499, 57776877, 7587797, [id number] #### [facility] (DEFAULT) [address] [place] [address] 71084 Sodium [Moles/Vol] 139.0 mmol/L Normal 136.0-144.0 [facility] Comment on above: Performed By: #### 7 279380, 63969996, 0831389, [id number] #### [facility] (DEFAULT) [address] [place] [address] Urea nitrogen [Mass/Vol] 9 mg/dL Normal 8-26 [facility] Comment on above: Performed By: #### 7 697134, 77952743, 2662659, [id number] #### [facility] (DEFAULT) [address] [place] [address] Urea nitrogen/Creatinin e [Mass ratio] 14.0 mg/mg Normal 4.6-16.2 [facility] Comment on above: Performed By: #### 7 768239, 20480021, 0095494, [id number] #### [facility] (DEFAULT) [address] [place] [address] ED Note - Physicianon 2021 ED Note - Physician Patient: ASHVIN RENE Age: 65 years Sex: FEMALE : 1955 Associated Diagnoses: General medical; Anemia; Peripheral edema; GI bleed Author: EVERTON NEGRON Basic Information Time seen: Date & time 08/06/2021 17:19:00. History source: Patient, EMS. Arrival mode: Ambulance. 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 [...] -Pharynx is pink and dry NECK: -Supple ([id number]): non-tender. CARD: -Rate and rhythm: Regular -Edema: [...] was performed with patient's consent and nurse betting agency manager Jessica in the room the entire time -External rectal exam reveals no abnormalities -Digital rectal exam reveals no masses or polyps within reach of my finger, stool guaiac is positive Medical Decision Making 55-year-old female presenting to the emergency department for evaluation of low blood pressure taken manually at [facility] facility of 90/45 and possibility of looking [...] at this time. According to paperwork from [facility] facility patient CODE STATUS is full code Results review: Lab results : Lab Flowsheet 08/06/2021 18:55 EST Troponin I High Sensitivity 21 pg/mL CRIT 08/06/2021 1 (more content not included)... Normal [facility] ED Note-Nursingon 08-06-2021 ED Note-Nursing patient did not want to come in. patient is from [facility], patient has a history of hypotension and she takes midodrine regularly. she also took zofran. nurse states arms and legs are weeping. nurse states skin is yellow. patient has c diff. nurse at [facility] did a wrist bloodpressure and it was 90/44, ems did a blood pressure and it was 144/90. patient states [facility] is not giving me my blood pressure meds Normal [facility] Extra Pinkon 08-06-2021 Tube Collected Yes Invalid Interpretation Code [facility] Comment on above: Performed By: #### 7 714939, 34819940, 0134706, [id number] #### [facility] (DEFAULT) [address] [place] [address] Lactic Acidon 08-06-2021 Lactic Acid 16.2 mg/dL Normal 4.5-19.8 [facility] Comment on above: Performed By: #### 7 175203, 80560009, 1962633, [id number] #### [facility] (DEFAULT) [address] [place] [address] Lipaseon 08-06-2021 Lipase Level 20.0 IU/L Low 22.0-51.0 [facility] Comment on above: Performed By: #### 7 663138, 58792957, 8540156, [id number] #### [facility] (DEFAULT) [address] [place] [address] Magnesiumon 08-06-2021 Magnesium [Mass/Vol] 0.92 mg/dL Low 1.80-2.50 [facility] Comment on above: Performed By: #### 7 947255, 49883779, 5874629, [id number] #### [facility] (DEFAULT) [address] [place] [address] Morphologyon 08-06-2021 Aniso 1+ Normal [facility] Comment on above: Order Comment: Order added by Discern. Performed By: #### 7 534311, 83124885, 5145626, [id number] #### [facility] (DEFAULT) [address] [place] [address] Hypochrom 1+ Normal [facility] Comment on above: Order Comment: Order added by Discern. Performed By: #### 7 873396, 64411168, 0953035, [id number] #### [facility] (DEFAULT) [address] [place] [address] Microcyte 1+ Normal [facility] Comment on above: Order Comment: Order added by Discern. Performed By: #### 7 175951, 89561933, 3990819, [id number] #### [facility] (DEFAULT) [address] [place] [address] RBC morphology finding Nom (Bld) See Morphology Normal [facility] Comment on above: Order Comment: Order added by Discern. Performed By: #### 7 419446, 07477924, 6444445, [id number] #### [facility] (DEFAULT) [address] [place] [address] RBC.on 08-06-2021 RBC. # of Units: 2 RBC Indication: Symptom Anemia Additional Units?: No Date Needed: 1/24/22 Red Cell Status: RBC Ready Normal [facility] Comment on above: Performed By: #### 1 [id number], 7493411, 37717644, 1488043 #### [facility] (DEFAULT) [address] [place] [address] SARS-CoV-2 (COVID-19) PCRon 08-06-2021 Employed in healthcare? No Invalid Interpretation Code [facility] Comment on above: Performed By: #### 1 [id number], 5790194, 66400137, 6175779 #### [facility] (DEFAULT) [address] [place] [address] Group care resident? Yes Invalid Interpretation Code [facility] Comment on above: Performed By: #### 1 [id number], 6965148, 54095650, 0397962 #### [facility] (DEFAULT) [address] [place] [address] In ICU? Unknown Invalid Interpretation Code [facility] Comment on above: Performed By: #### 1 [id number], 6965333, 50167515, 8424507 #### [facility] (DEFAULT) [address] [place] [address] status? Not Invalid Interpretation Code [facility] Comment on above: Performed By: #### 1 [id number], 7130820, 24067270, 3416456 #### [facility] (DEFAULT) [address] [place] [address] SARS-CoV-2 (COVID-19) RNA JESSICA+probe Ql (Unsp spec) Detected Critically abnormal Not Detected [facility] Comment on above: Result Comment: Resu lts Called To MICAH Prince in ER By RR And Read Back For Confirmation On 08/06/2021 19:54:09 EST. Performed by PCR methodology. Performed By: #### 1 [id number], 7085732, 25101855, [id number] #### [facility] (DEFAULT) [address] [place] [address] SARS-CoV-2 (COVID-19) RNA JESSICA+probe Ql (Unsp spec) Unknown Invalid Interpretation Code [facility] Comment on above: Performed By: #### 1 [id number], 0557988, 79841771, 6447234 #### [facility] (DEFAULT) [address] [place] [address] Symptomatic as defined by CDC? No Invalid Interpretation Code [facility] Comment on above: Performed By: #### 1 [id number], 3291189, 64897060, 5934158 #### [facility] (DEFAULT) [address] [place] [address] 76868 TnI HSon 08-06-2021 Troponin I High Sensitivity 21 pg/mL Critically abnormal <=15 [facility] Comment on above: Result Comment: Elev ated hsTnI 21 result called and read back ok to: GELY OBRIEN ER at: 19:26:45 08/06/2021 by: RRUPPERT Male Baseline Delta 1Hr (Note pg/mL=ng/L) <20pg/mL 50-60% >20pg/mL 20% Female Baseline Delta 1Hr <15pg/mL 50-60% >15pg/mL 20% Other Baseline Delta 1Hr <18ng/mL 50-60% >18ng/mL 20% ([place] [employer] Guidelines February 2018) Performed By: #### 7 393083, 81940497, 2771498, [id number] #### [facility] (DEFAULT) [address] [place] [address] Troponin I High Sensitivity 17 pg/mL Critically abnormal <=15 [facility] Comment on above: Result Comment: Elev ated hsTnI 17 result called and read back ok to: JESSICA AL RN IN ER at: 18:28:53 08/06/2021 by: RRUPPERT Male Baseline Delta 1Hr (Note pg/mL=ng/L) <20pg/mL 50-60% >20pg/mL 20% Female Baseline Delta 1Hr <15pg/mL 50-60% >15pg/mL 20% Other Baseline Delta 1Hr <18ng/mL 50-60% >18ng/mL 20% ([place] [employer] Guidelines February 2018) Performed By: #### 7 692631, 01810263, 0086318, [id number] #### [facility] (DEFAULT) [address] [place] [address] XR Chest 1 View Frontalon XR Chest [...] DT/TM: 08/06/21 8:48 Signed (Electronic Signature): Yary Gamze DO 08/06/21 8:49 pm Technologist: RANDALL [facility] KNEE RIGHT 3 Son KNEE RIGHT 3 [facility] Department of Radiology [address] [place] [id number] Patient Name: ASHVIN RENE : 1955 Sex: F Age: Race: White Pt. Location: 84 Patient Status: O Ordered Date: 01/01/2021 3:20:00 PM Completed Date: 01/01/2021 03:21 PM Requesting Provider: TIARA VÁZQUEZ Attending Provider: TIARA VÁZQUEZ Report Copy To: Signs & Symptoms: M25.561 Pain in right knee I10 History: Comments: Evaluate Exam: KNEE RIGHT 3 S KNEE RIGHT 3 S 01/01/2021 3:21 PM CLINICAL INDICATIONS: M25.561 Pain in right knee I10 TECHNOLOGIST COMMENTS: right knee pain, HX of knee surgery October 2018 QUESTION FOR THE RADIOLOGIST: Evaluate PROTOCOL: AP,Lateral and Tangential views were obtained. COMPARISON: None FINDINGS: 3 screws through the distal epicondyles. No acute fracture nor malalignment. Severe vascular calcification. IMPRESSION: No significant change Electronically signed: Tawana Andrade. Transcribed by: [email or web address], User Resident: Electronically Signed by: TAWANA ANDRADE @ 01/01/2021 08:57 PM Normal [facility] Comment on above: Order Comment: Evalu ate Basic Metabolic Panlon 12-08 Anion gap [Moles/Vol] 13 mmol/L Normal 9-18 [facility] Comment on above: Performed By: #### B MP ####[address] [phone] Calcium [Mass/Vol] 7.1 mg/dL Low 8.5-10.2 [facility] Comment on above: Performed By: #### B MP ####[address] [phone] Chloride [Moles/Vol] 107 mmol/L High 97-105 [facility] Comment on above: Performed By: #### B MP ####[address] [phone] CO2 [Moles/Vol] 18 mmol/L Low 22-30 [facility] Comment on above: Performed By: #### B MP ####[address] [phone] Creatinine [Mass/Vol] 0.97 mg/dL High 0.58-0.96 [facility] Comment on above: Performed By: #### B MP ####[address] [phone] eGFR- Amer. >60 Normal [facility] Comment on above: Performed By: #### B MP ####[place] [address] [place], [place] [phone] eGFR-All Other Races 57 . Normal [facility] Comment on above: Result Comment: eGFR [...] actual GFR. Performed By: #### B MP ####[address] [phone] Glucose [Mass/Vol] 79 mg/dL Normal 74-99 [facility] Comment on above: Result Comment: The [place] [employer] (ADA) provides guidance for cutoff [...] Standards of Medical Care in Diabetes 2016, [place] [employer]. Diabetes Care. 2016.39(Suppl 1). Performed By: #### B MP ####[facility] [place], [place] [phone] Potassium [Moles/Vol] 4.4 mmol/L Normal 3.7-5.1 [facility] Comment on above: Performed By: #### B MP ####[facility] [place], [place] [phone] Sodium [Moles/Vol] 138 mmol/L Normal 136-144 [facility] Comment on above: Performed By: #### B MP ####[place] [address] [place], [place] [phone] Urea nitrogen [Mass/Vol] 15 mg/dL Normal 7-21 [facility] Comment on above: Performed By: #### B MP ####[address] [phone] Coronavirus 2019on SARS-CoV-2 (COVID-19) RNA JESSICA+probe Ql (Unsp spec) Nasopharyngeal Swab Normal [facility] Comment on above: Performed By: #### C OVID ####[address] [phone] SARS-CoV-2 (COVID-19) RNA JESSICA+probe Ql (Unsp spec) Negative for COVID19 (SARS CoV2) by RT-PCR or equivalent method. Normal Negative for COVID19 (SARS CoV2) by RT-PCR or equivalent method. [facility] Comment on above: Result Comment: This test was developed and its performance characteristics determined by [facility]. This test has been authorized by FDA under an Emergency Use Authorization (EUA). This test has been validated in accordance with the FDA's Guidance Document Policy for Diagnostics Testing in Laboratories Certified to Perform High Complexity Testing under CLIA prior to Emergency use Authorization for Coronavirus Disease 2019 during the Public Health Emergency issued on September 11, 2019. Test performed by [facility], [facility] [place], [address] [place], [place] [address]. Performed By: #### C OVID ####[address] [phone] CBCon 12-07-2020 Absolute nRBC <0.01 Normal <0.01 [facility] Comment on above: Performed By: #### C MP, CBC, PT ####[address] [phone] Erythrocyte distribution width (RBC) [Ratio] 15.1 % High 11.5-15.0 [facility] Comment on above: Performed By: #### C MP, CBC, PT ####[place] [address], [place] [phone] Hematocrit (Bld) [Volume fraction] 33.1 % Low 36.0-46.0 [facility] Comment on above: Performed By: #### C MP, CBC, PT ####[place] [address] [place] [phone] Hemoglobin (Bld) [Mass/Vol] 10.0 g/dL Low 11.5-15.5 [facility] Comment on above: Performed By: #### C MP, CBC, PT ####[place] [address] [place] [phone] MCH 31.9 pG Normal 26.0-34.0 [facility] Comment on above: Performed By: #### C MP, CBC, PT ####[place] [address] [place] [phone] MCHC (RBC) [Mass/Vol] 30.2 g/dL Low 30.5-36.0 [facility] Comment on above: Performed By: #### C MP, CBC, PT ####[place] [address] [place] [phone] MCV (RBC) [Entitic vol] 105.8 fL High 80.0-100.0 [facility] Comment on above: Performed By: #### C MP, CBC, PT ####[place] [address], [place] [phone] Platelet mean volume (Bld) [Entitic vol] 9.6 fL Normal 9.0-12.7 [facility] Comment on above: Performed By: #### C MP, CBC, PT ####[place] [address] [place] [phone] Platelets (Bld) [#/Vol] 256 10*3/uL Normal 150-400 [facility] Comment on above: Performed By: #### C MP, CBC, PT ####[place] [address], [place] [phone] RBC (Bld) [#/Vol] 3.13 10*6/uL Low 3.90-5.20 [facility] Comment on above: Performed By: #### C MP, CBC, PT ####[place] [address], [place] [phone] WBC (Bld) [#/Vol] 5.83 10*3/uL Normal 3.70-11.00 [facility] Comment on above: Performed By: #### C MP, CBC, PT ####[address] [phone] Comp Metabolic Panelon 12-07 Albumin [Mass/Vol] 3.1 g/dL Low 3.9-4.9 [facility] Comment on above: Performed By: #### C MP, CBC, PT ####[address] [phone] ALP [Catalytic activity/Vol] 34 U/L Normal 34-123 [facility] Comment on above: Performed By: #### C MP, CBC, PT ####[place] [address] [place], [place] [phone] ALT [Catalytic activity/Vol] 16 U/L Normal 7-38 [facility] Comment on above: Performed By: #### C MP, CBC, PT ####[address] [place], [place] [phone] Anion gap [Moles/Vol] 8 mmol/L Low 9-18 [facility] Comment on above: Performed By: #### C MP, CBC, PT ####[address] [place], [place] [phone] AST [Catalytic activity/Vol] 16 U/L Normal 13-35 [facility] Comment on above: Performed By: #### C MP, CBC, PT ####[place] [address], [place] [phone] Bilirubin [Mass/Vol] 0.2 mg/dL Normal 0.2-1.3 [facility] Comment on above: Performed By: #### C MP, CBC, PT ####[place] [address] [place] [phone] Calcium [Mass/Vol] 8.4 mg/dL Low 8.5-10.2 [facility] Comment on above: Performed By: #### C MP, CBC, PT ####[place] [address], [place] [phone] Chloride [Moles/Vol] 111 mmol/L High 97-105 [facility] Comment on above: Performed By: #### C MP, CBC, PT ####[place] [address] [place] [phone] CO2 [Moles/Vol] 21 mmol/L Low 22-30 [facility] Comment on above: Performed By: #### C MP, CBC, PT ####[place] [address], [place] [phone] Creatinine [Mass/Vol] 1.16 mg/dL High 0.58-0.96 [facility] Comment on above: Performed By: #### C MP, CBC, PT ####[place] [address] [place] [phone] eGFR- Amer. 56 Normal [facility] Comment on above: Performed By: #### C MP, CBC, PT ####[place] [address], [place] [phone] eGFR-All Other Races 47 . Normal [facility] Comment on above: Result Comment: eGFR [...] Performed By: #### C MP, CBC, PT ####[facility] [place], [place] [phone] Glucose [Mass/Vol] 96 mg/dL Normal 74-99 [facility] Comment on above: Result Comment: The [place] Diabetes Association (ADA) provides guidance for cutoff [...] Standards of Medical Care in Diabetes 2016, [place] [employer]. Diabetes Care. 2016.39(Suppl 1). Performed By: #### C MP, CBC, PT ####[facility] [place], [place] [phone] Potassium [Moles/Vol] 4.7 mmol/L Normal 3.7-5.1 [facility] Comment on above: Performed By: #### C MP, CBC, PT ####[address] [phone] Protein [Mass/Vol] 5.0 g/dL Low 6.3-8.0 [facility] Comment on above: Performed By: #### C MP, CBC, PT ####[facility] [place], [place] [phone] Sodium [Moles/Vol] 140 mmol/L Normal 136-144 [facility] Comment on above: Performed By: #### C MP, CBC, PT ####[facility] [place], [place] [phone] Urea nitrogen [Mass/Vol] 22 mg/dL High 7-21 [facility] Comment on above: Performed By: #### C MP, CBC, PT ####[facility] [place], [place] [phone] Protimeon 12-07-2020 PT INR 1.2 Normal 0.9-1.3 [facility] Comment on above: Result Comment: Jenny min K Antagonist (VKA) Therapeutic Range: INR 2 to 3 (Target INR of 2.5) Note: For patients treated with VKA drugs, such as warfarin, the [place] [employer] 2012 Guideline recommends [...] to 3.5 (target INR of 3). Queta GH, et al. Chest 2012, 141:7S-47S Haile RA, et al. [facility] 2017, 70: [phone] Performed By: #### C MP, CBC, PT ####[facility] [place], [place] [phone] PT Sec 12.3 sec Normal 9.7-13.0 [facility] Comment on above: Performed By: #### C MP, CBC, PT ####[facility] [place], [place] [phone] CNPNon 12-06-2020 CNPN Telephone (BIBI) -- ASHVIN RENE ([id number]) 1955 F Date Time Provider Department 12/06/20 NAY JOSEPH During your visit today, we [...] education topics: Arrival time/NPO Status/Medications/Travel INSTRUCTED ON [employer] RESTRICTIONS - AWARE TO HAVE CHEF INSTRUCTOR 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 Instructed By Coty Morlaes RN. In Department of CARDIOLOGY. Allergies As [...] 12/06/2020 Noted Resolved Coronary artery disease of [place] artery of otilio*11/24/2020 S/P CABG (coronary artery bypass graft) [Z95.1] 11/24/2020 Pure hypercholesterolemia [E78.00] 11/24/2020 Type 2 diabetes mellitus without complication, *11/24/2020 Fatigue [R53.83] 11/24/2020 Encounter Status:Closed by COTY MORALES RN on 12/06/20 [facility] Mirella 11-28-2020 JEFFREY Telephone (DIOMEDES) -- ASHVIN RENE ([id number]) 1955 F Date Time Provider Department 11/28/20 [...] 11/29/2020 9:46 AM Signed Faxed orders to [phone] Kd Solitario 11/29/2020 12:22 PM Signed Patient called back and gave alternative fax # [phone] She would also like cath to be scheduled on 12/07. Called scheduling to get it added on Allergies As of Date: 11/28/2020 Noted Allergy Reaction CODEINE 11/24/2020 1 - Mental Status Change 4 - Hives Date Reviewed: 11/24/2020 Reviewed by: Demetra Guadalupe RN - Fully Assessed Reason for Visit: Patient Update [1234] Primary Visit Diagnosis:Coronary artery disease of [place] artery of [place] heart with stable angina pectoris (HCC) [I25.118] Order(s):CARDIAC PAPER MILL SUPERVISOR ORDER [[id number]] Order #: [id number]: 1 INTERMEDIATE RAPID COVID [SQITCOVD] Order #: [id number] FUTURE COMP METABOLIC PANEL [SQCMP] Order #: [id number] FUTURE CBC [SQCBC] Order #: [id number] FUTURE LIPID PANEL BASIC [SQLIPB] Order #: [id number] FUTURE CK CREATINE KINASE [SQCK] Order #: [id number] FUTURE ECG COMPLETE [ECG01] Order #: [id number] FUTURE Prescriptions as of 11/28/2020 Sig: ACETAMINOPHEN [...] 11/28/2020 Noted Resolved Coronary artery disease of [place] artery of [place]tilio*11/24/2020 S/P CABG (coronary artery bypass graft) [Z95.1] 11/24/2020 Pure hypercholesterolemia [E78.00] 11/24/2020 Type 2 diabetes mellitus without complication, *11/24/2020 Fatigue [R53.83] 11/24/2020 Encounter Status:Closed by NAY JOSEPH on 11/29/20 [facility] CNOVon 11-24-2020 CNOV Office Visit (CATHMN ) -- ASHVIN RENE ([id number]) 1955 F Date Time Provider Department 11/24/20 9:30 AM NAY JOSEPH During your visit today, we recorded the following information about you: Pulse Respiration Blood pressure Weight 91/minute 20/minute 108/63 64.3 kg Height 1.6 m A. Nay Joseph MD 11/29/2020 7:54 AM Signed [facility] Department of Cardiovascular Medicine SECTION OF INTERVENTIONAL CARDIOLOGY OUTPATIENT VISIT DATE November 23, 2020 OUTPATIENT VISIT TYPE NEW PRIMARY CARE PHYSICIAN: Tushar Solano Jr, DO (DrBerhane) [address] [address] REFERRING PHYSICIAN: Waqas Mabry MD [address] [place] [facility] [address] CHIEF COMPLAINT: No chief complaint on file. HISTORY OF PRESENT ILLNESS: Ms. Rene is a 65 year old female who presents today for second opinion regarding severe CAD. History detailed below. In brief: CRFs: HTN, lipids, FHx 2013 - PCI at OSH - no information (liklely mid LAD based upon subsequent angiogram) 2014 - CABG x 2 at OSH - CHURCH to LAD, SVG to RCA 2016 - two heart attacks and a stroke per patient, leading to catheterization and loop recorder placement. 2016 - catheterization at OSH reportedly showing atretic CHURCH (CHURCH is NOT atretic by my review of [...] segment. RCA - mid diffuse 100% occlusion CHURCH to LAD - CHURCH is widely patent. LAD is 100% occluded [...] resolved after CABG) 2016 CVA and (?) DC 05/24/16 Echo ? Normal left ventricular end-diastolic [...] bypass grafts are patent. With a atretic CHURCH to the LAD that fills a very [...] Lexiscan injection (more content not included)... Normal [facility] CNCOon 11-22-2020 CNCO Letter Text Normal [facility] CNPNon 11-22-2020 CNPN Telephone (CATHMN) -- ASHVIN RENE ([id number]) 1955 F Date Time Provider Department 11/22/20 NAY JOSEPH During your visit today, we recorded the following information about you: Kd Solitario 11/22/2020 3:54 PM Signed Urgent records request faxed to [phone] Allergies As of Date: 11/22/2020 (Not on File) Date Reviewed: Never Reviewed Reason for Visit: Request Outside Medical Records [[id number]] Problem List As Of Date: 11/22/2020 (None) Encounter Status:Closed by KD SOLITARIO on 11/22/20 [facility] 11-09-2020 CNPN Telephone (REFPHY) -- ASHVIN RENE ([id number]) 1955 F Date Time Provider Department 11/09/20 NO ONE (HISTORICAL) REFPHY During your visit today, we recorded the following information about you: Ashvin Quezada [facility] 11/09/2020 10:11 AM Signed Patient: Ashvinanel Rene Date of : 1955 Patient phone number: [phone] Referring Provider for the encounter: Dr Waqas Mabry Requesting Provider: Cardiology Reason for requesting visit (RFV/signs and symptoms/diagnosis): 2nd Opinion - Severe CAD Person calling: caregiver: ERIC Return call to: self Medical Records/Insurance Card scanned into [employer]: Yes Comments: N/A Allergies As of Date: 11/09/2020 (Not on File) Date Reviewed: Never Reviewed Reason for Visit: External Referrals/resources [719] Problem List As Of Date: 11/09/2020 (None) Encounter Status:Closed by ASHVIN DIAZ on 11/09/20 Normal [facility] XA-CARDIAC CATHETERIZATION I MPORTon 10-25-2020 XA-CARDIAC CATHETERIZATION IMPORT Images were obtained outside of [facility] [id number] Normal [facility] Vital Signs Date Time Vital Sign Value Performing Clinician Facility 10-15-2023 14:00-0400 Heart rate 80 /min Hazem Malas DO Work Phone: [facility] [facility] 10-15-2023 14:00-0400 Respiratory rate 15 /min Hazem Malas DO Work Phone: [facility] 10-15-2023 14:00-0400 SaO2% (BldA) [Mass fraction] 95 % Hazem Malas DO Work Phone: [facility] 10-15-2023 12:15-0400 Body temperature 98.6 [degF] Hazem Malas DO Work Phone: [facility] 10-15-2023 12:15-0400 Diastolic blood pressure 78 mm[Hg] Hazem Malas DO Work Phone: [facility] 10-15-2023 12:15-0400 Systolic blood pressure 121 mm[Hg] Hazem Malas DO Work Phone: [facility] 10-14-2023 05:00-0400 Body mass index (BMI) [Ratio] 27.66 kg/m2 Hazem Malas DO Work Phone: [facility] 10-14-2023 05:00-0400 Body weight 68.6 kg Hazem Malas DO Work Phone: [facility] 10-13-2023 11:21-0400 Body height 157.5 cm Hazem Malas DO Work Phone: [facility] 08-21-2023 14:09-0500 Body temperature 97.9 [degF] Dwain Mills DPM Work Phone: [facility] 08-21-2023 14:09-0500 Diastolic blood pressure 62 mm[Hg] Dwain Mills DPM Work Phone: [facility] 08-21-2023 14:09-0500 Heart rate 84 /min Dwain Mills DPM Work Phone: [facility] 08-21-2023 14:09-0500 Systolic blood pressure 145 mm[Hg] Dwain Mills DPM Work Phone: [facility] 08-06-2023 16:00-0500 Diastolic blood pressure 65 mm[Hg] [facility] 08-06-2023 16:00-0500 Heart rate 80 /min [facility] 08-06-2023 16:00-0500 Respiratory rate 16 /min [facility] 08-06-2023 16:00-0500 SaO2% (BldA) [Mass fraction] 100 % [facility] 08-06-2023 16:00-0500 Systolic blood pressure 107 mm[Hg] [facility] 08-06-2023 12:48-0500 Inhaled oxygen flow rate 3 L/min [facility] 08-06-2023 11:08-0500 Body height 157.48 cm [facility] 08-06-2023 11:08-0500 Body weight 63.04 kg [facility] 08-04-2023 10:45-0500 Body height 160.66 cm Jolie De Luna Other Loc[facility] [employer] Other 08-04-2023 10:45-0500 Body mass index (BMI) [Ratio] 24.43 kg/m2 Jolie De Luna Other [facility] [employer] Other 08-04-2023 10:45-0500 Body temperature 97.8 [degF] Jolie De Luna Other [facility] [employer] Other 08-04-2023 10:45-0500 Body weight 63.05 kg Jolie De Luna Other [employer] Other 08-04-2023 10:45-0500 Diastolic blood pressure 64 mm[Hg] Jolie De Luna Other [employer] Other 08-04-2023 10:45-0500 SaO2% (BldA) [Mass fraction] 98 % Jolie De Luna Other [employer] Other 08-04-2023 10:45-0500 Systolic blood pressure 110 mm[Hg] Jolie De Luna Other [employer] Other 06-25-2023 11:16-0500 Body height 157.5 cm Norman Braga MD Work Phone: [employer] 06-25-2023 11:16-0500 Body mass index (BMI) [Ratio] 25.79 kg/m2 Norman Braga MD Work Phone: [employer] 06-25-2023 11:16-0500 Body temperature 98.2 [degF] Norman Braga MD Work Phone: [employer] 06-25-2023 11:16-0500 Body weight 63.96 kg Norman Braga MD Work Phone: [employer] 05-20-2022 11:05-0500 Body height 160.66 cm Virginia Marti Other [employer] Other 05-20-2022 11:05-0500 Body mass index (BMI) [Ratio] 21.09 kg/m2 Virginia Marti Other [employer] Other 05-20-2022 11:05-0500 Body temperature 97.3 [degF] Virginia Marti Other [employer] Other 05-20-2022 11:05-0500 Body weight 54.43 kg Virginia Marti Other [employer] Other 05-20-2022 11:05-0500 Diastolic blood pressure 66 mm[Hg] Virginia Marti Other [employer] Other 05-20-2022 11:05-0500 Respiratory rate 18 /min Virginia Marti Other [employer] Other 05-20-2022 11:05-0500 SaO2% (BldA) [Mass fraction] 100 % Virginia Marti Other [employer] Other 05-20-2022 11:05-0500 Systolic blood pressure 112 mm[Hg] Virginia Marti Other [employer] Other 04-12-2021 15:45-0400 Body height 160.66 cm Antonio Julio Other [employer] Other 04-12-2021 15:45-0400 Body mass index (BMI) [Ratio] 25.3 kg/m2 Antonio Julio Other [employer] Other 04-12-2021 15:45-0400 Body weight 65.32 kg Antonio Juloi Other [employer] Other 09-09-2019 10:00-0500 BP Diastolic 80 mm[Hg] [facility] 09-09-2019 10:00-0500 BP Systolic 138 mm[Hg] [facility] 09-09-2019 10:00-0500 Pulse (Heart Rate) 80 /min [facility] 09-09-2019 10:00-0500 Pulse Oximetry 96 % [facility] 09-09-2019 10:00-0500 Respiratory Rate 16 /min [facility] 09-09-2019 08:20-0500 BMI (Body Mass Index) 25 kg/m2 [facility] 09-09-2019 08:20-0500 Body weight 63.95 kg [facility] 09-09-2019 08:20-0500 Height 160.02 cm [facility] 09-09-2019 07:10-0500 Body Temperature 97.9 [degF] [facility] 08-12-2019 09:55-0500 BP Diastolic 73 mm[Hg] [facility] 08-12-2019 09:55-0500 BP Systolic 132 mm[Hg] [facility] 08-12-2019 09:55-0500 Pulse (Heart Rate) 86 /min [facility] 08-12-2019 09:55-0500 Pulse Oximetry 97 % [facility] 08-12-2019 09:55-0500 Respiratory Rate 16 /min [facility] 08-12-2019 08:47-0500 BMI (Body Mass Index) 25.2 kg/m2 [facility] 08-12-2019 08:47-0500 Body weight 63.5 kg [facility] 08-12-2019 08:47-0500 Height 158.75 cm [facility] 08-12-2019 07:27-0500 Body Temperature 98.8 [degF] [facility] Encounters Encounter Date Encounter Type Care Provider Facility Start: 10-23-2023 End: 10-23-2023 ambulatory MARIAMA INGRAM [facility] Start: 10-13-2023 ambulatory TUSHAR SOLANO [facility] Start: 10-13-2023 End: 10-15-2023 Evaluation and management of inpatient [facility] Start: 10-12-2023 End: 10-15-2023 Evaluation and management of inpatient Jonathan Pizarro DO Work Phone: [facility] Comment on above: Decompensated heart failure (CMS-HCC) (Primary Dx); NSTEMI (non-ST elevated myocardial infarction) (CMS-HCC) Start: 10-12-2023 Documentation procedure Jonathan Pizarro DO Work Phone: [facility] [employer] Sign In Start: 10-06-2023 End: 10-07-2023 Orders Only Cheikh Rodrigez [facility] Comment on above: 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) Start: 08-22-2023 [facility] Comment on above: Loly Start: 08-21-2023 End: 08-21-2023 ambulatory DWAIN MILLS Not Available Start: 08-21-2023 Bamboo flowsheet Dwain moore DPM Work Phone: [facility] Start: 08-21-2023 Bamboo flowsheet Dwain moore DPM Work Phone: [facility] Start: 08-21-2023 End: 08-21-2023 Office outpatient visit 15 minutes Dwain Mills DPM Work Phone: [facility] Comment on above: 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); Gangrene (CMS/HCC); Pain in toe of right foot; Arteriosclerosis of arteries of extremities (CMS/HCC) Start: 08-07-2023 End: 08-07-2023 ambulatory DWAIN MILLS Not Available Start: 08-06-2023 End: 08-06-2023 ambulatory Tushar Solano Facility:[facility] Start: 08-06-2023 Non-patient / Non-visit [facility] Work Phone: Start: 08-04-2023 End: 08-04-2023 ambulatory Jolie De Luna Other [employer] Other Start: 08-04-2023 [facility] visit new patient Jolie harkins [facility] Start: 07-24-2023 End: 07-24-2023 ambulatory DWAIN MILLS Not Available Start: 06-25-2023 ambulatory NORMAN BRAGA [facility] Start: 06-25-2023 End: 06-25-2023 Office outpatient new 45 minutes Norman Braga MD Work Phone: [facility] Comment on above: Left knee pain, unsp ecified chronicity (Primary Dx) Start: 06-25-2023 End: 06-25-2023 Subsequent hospital visit by physician Norman Braga MD Work Phone: [facility] Start: 10-15-2022 End: 10-16-[address] TUSHAR SOLANO Facility:[facility] Start: 07-16-2022 End: 07-17-[address] TUSHAR SOLANO Facility:[facility] Start: 06-14-2022 End: 06-15-[address] TUSHAR SOLANO Facility:[facility] Start: 05-20-2022 Office outpatient vi sit 15 minutes Virginia Marti [facility] Start: 05-20-2022 End: 05-20-2022 ambulatory JR Tushar Solano Work Phone: [facility] Work Phone: Start: 05-20-2022 End: 05-20-2022 Patient encounter procedure JR Tushar Solano Work Phone: [facility] Start: 06-11-2021 End: 06-11-2021 ambulatory Antonio Kim Other [employer] Other Start: 06-11-2021 Telephone encounter Antonio Cardenas ck [facility] Start: 04-12-2021 Office outpatient ne w 45 minutes Antonio Kim [facility] Start: 11-09-2020 End: 11-09-2020 Telephone encounter No One (Historical) Referring Physician Comment on above: External Referrals/r esources Start: 09-09-2019 End: 09-09-2019 Admission to day surgery [facility] Start: 08-12-2019 End: 08-12-2019 Admission to day surgery [facility] Procedures Date Procedure Procedure Detail Performing Clinician Start: 10-23-2023 Follow-up visit Follow-up MARIAAM INGRAM Start: 10-15-2023 Assay of magnesium Nikolas Anthonychar INDEPENDENT LIVING INSTRUCTOR-AUDIO VISUAL PRODUCTION SPECIALIST Work Phone: Start: 10-15-2023 Radiologic exam chest single view Kallie Roman MD Work Phone: Start: 10-15-2023 Basic metabolic panel calcium total Hazem Malas DO Work Phone: Start: 10-14-2023 Calcium ionized Parul Holder Jeb INDEPENDENT LIVING INSTRUCTOR-AUDIO VISUAL PRODUCTION SPECIALIST Work Phone: Start: 10-14-2023 Lipid panel Kristyn Avila MD Work Phone: Start: 10-14-2023 Calcium ionized Parul Holder Jeb INDEPENDENT LIVING INSTRUCTOR-AUDIO VISUAL PRODUCTION SPECIALIST Work Phone: Start: 10-14-2023 Cardiac catheterization Obdulia Grove MD Work Phone: Start: 10-14-2023 Basic metabolic panel calcium total Parul Mcdowellfern INDEPENDENT LIVING INSTRUCTOR-AUDIO VISUAL PRODUCTION SPECIALIST Work Phone: Start: 10-14-2023 Ecg routine ecg w/least 12 lds trcg only w/o i&r Parul Holder Jeb INDEPENDENT LIVING INSTRUCTOR-AUDIO VISUAL PRODUCTION SPECIALIST Work Phone: Start: 10-13-2023 Calcium ionized Parul R Jeb INDEPENDENT LIVING INSTRUCTOR-AUDIO VISUAL PRODUCTION SPECIALIST Work Phone: Start: 10-13-2023 Heparin assay Parul Holder Jeb INDEPENDENT LIVING INSTRUCTOR-AUDIO VISUAL PRODUCTION SPECIALIST Work Phone: Start: 10-13-2023 Calcium ionized Hazem Malas DO Work Phone: Start: 10-13-2023 Echo tthrc r-t 2d w/wom-mode compl spec&colr d Parul Holder Jeb INDEPENDENT LIVING INSTRUCTOR-AUDIO VISUAL PRODUCTION SPECIALIST Work Phone: Start: 10-13-2023 Potassium serum plasma/whole blood Hazem Malas DO Work Phone: Start: 10-13-2023 Basic metabolic panel calcium total Parul Russ INDEPENDENT LIVING INSTRUCTOR-AUDIO VISUAL PRODUCTION SPECIALIST Work Phone: Start: 10-13-2023 Basic metabolic panel calcium total Parul Russ INDEPENDENT LIVING INSTRUCTOR-AUDIO VISUAL PRODUCTION SPECIALIST Work Phone: Start: 10-13-2023 Ecg routine ecg w/least 12 lds trcg only w/o i&r Parul Hassann INDEPENDENT LIVING INSTRUCTOR-AUDIO VISUAL PRODUCTION SPECIALIST Work Phone: Start: 10-12-2023 Gluc bld gluc mntr dev cleared fda spec home use Jonathan Pizarro DO Work Phone: Start: 05-20-2022 Plain X-ray of right hand [...] Td Vaccines (2 - Td or Tdap) [facility] Start: 05-20-2032 Tetanus vaccination [facility] Start: 05-19-2024 Adult BMI Screening Adult BMI Screen ing [facility] Start: 05-19-2024 Tobacco Screening Tobacco Screening [facility] Start: 11-13-2023 End: 11-13-2023 Patient encounter procedure 11/13/2023 2:30 PM EDT Office Visit [facility] [address] [place] [address] Bernice Davis MD [address] [place] [address] [facility] Start: 10-16-2023 End: 10-16-2023 Patient encounter procedure 10/16/2023 1:30 PM EDT Office Visit [facility] [address] [facility] [address] [place] [address] Genet Small DO [address] [facility] [address] [place] [address] [facility] Start: 09-09-2023 End: 09-09-2023 Patient encounter procedure 09/09/2023 10:15 AM EST Office Visit [facility] [address] [place] [id number] Dwain Mills, DPM [address] [place] [address] [facility] Start: 08-21-2023 End: 08-21-2023 Patient encounter procedure 08/21/2023 2:00 PM EST Office Visit [facility] [address] [place] [address] Dwain Mills, DPM [address] [place] [address] Arrived [facility] Comment on above: Arrived Start: 08-06-2023 [facility] Start: 03-14-2023 Influenza vaccination A [facility] Start: 2018 Fall Risk Screening Fall Risk Screen ing [facility] Start: 2018 Pneumococcal vaccination PNEUM OCOCCAL VACCINE SERIES (2 - PCV) [facility] Start: 11-20-2003 Administration of varicella zoster vaccine Zoster (Shingles) Vaccine (1 of 2) [facility] Start: 11-20-2003 Zoster vaccine hzv l pool for subcutaneous use ZOSTER (SHINGLES) VACCINE (1 of 2) [facility] Start: 1998 Screening for malign ant neoplasm of colon COLORECTAL CANCER SCREENING DISCUSSION [facility] Start: 1993 Lipid panel LIPID SCREENING [facility] Start: 1993 Screening for malign ant neoplasm of breast MAMMOGRAM SCREENING DISCUSSION [facility] Start: 1974 Screening for malign ant neoplasm of cervix CERVICAL CANCER SCREENING DISCUSSION [facility] Start: 1972 Third diphtheria, te tanus and acellular pertussis (DTaP) vaccination TDAP (ADULT) [facility] Start: 11-20-1971 Adult BMI Follow Up Plan Adult BMI Follow Up Plan [facility] Start: 1965 Depression Screening Depression Scre ening [facility] Start: 05-22-1954 COVID-19 VACCINE (#1) COVID-19 VACCI NE (#1) [facility] Start: 1955 Hepatitis C screening HEPATITI S C VIRUS SCREENING [facility] Start: 1955 Medicare Annual Well ness Visit Medicare Annual Wellness Visit [facility] Start: 1955 Screening for osteoporosis DEXA SCAN DISCUSSION [facility] Start: 1955 Thyroid stimulating hormone measurement TSH [facility] Patient Education Atherectomy - Angioplasty of a Noncoronary Vessel Arteriogram (DC) [facility] Work Phone: Patient referral [facility] Radiography for bone length studies XR BONE LENGTH STUDY Imaging Routine Left knee pain, unspecified chronicity 06/25/2023 10:28 AM [facility] Work Phone: XR Knee - left 4 Views XR KNEE L EFT 4+ VIEWS Imaging Routine Left knee pain, unspecified chronicity 06/25/2023 10:28 AM [facility] Immunizations Immunization Date Immunization Notes Care Provider Joe silva 05-20-2022 tetanus and diphther ia toxoids, adsorbed, preservative free, for adult use (5 Lf of tetanus toxoid and 2 Lf of diphtheria toxoid) Virginia Marti Other [facility] 05-21-2018 Seasonal trivalent influenza vaccine, adjuvanted, preservative free Cheikh Rodrigez CMA [facility] 05-21-2018 influenza virus vaccine, unspecified formulation Norman Braga MD Work Phone: [facility] 09-12-2014 pneumococcal polysaccharide vaccine, 23 valent Cheikh Rain [facility] NEGATED: Highlighted row has not occurred!02-16-2023 pneumococcal conjugate vaccine, 13 valent Cheikh Rain [facility] Payers Date Payer Category Payer Self-pay [id number] 2022 Medicare [id number] 2020 Unknown [employer] [id number] 2020-Present Indemnity [id number] 2018 Medicare MEDICARE MEDICAR E A AND B [id number] 2018-Present [place] Medicare [id number] 1959 Medicare [id number] 1959 Unknown [id number] 1959 Unknown [id number] 1953 Unknown [id number] 2.16.840.1.293723.3.579.2.59 1953 Unknown [id number] .[id number] 1953 Unknown [id number] 2.16.840.1.661585.3.579.2.59 1953 Unknown [id number] 2.16.840.1.071674.3.579.2.983 1953 Unknown [id number] 2.16.840.1.332743.3.579.2.983 1953 Unknown [id number] 2.16.840.1.726893.3.579.2.125 9 1953 Unknown [id number] 2.16.840.1.996742.3.579.2.125 9 1953 Unknown [id number] 2.16.840.1.139625.3.579.2.125 9 1955 Unknown [id number] 2.16.840.1.843815.3.579.2.128 6 1953 Unknown [id number] 2.16.840.1.750496.3.579.2.128 6 1955 Unknown [id number] 2.16.840.1.713089.3.579.2.128 6 1953 Unknown [id number] 2.16.840.1.582407.3.579.2.128 6 Unknown [id number] Unknown [id number] [id number] Unknown [id number] 2.16.840.1.009422.3.579.2.531 Social History Date Type Detail Facility Start: 06-18-2016 End: 09-09-2019 Tobacco smoking status NHIS Never smoked tobacco (finding) [facility] Start: 1955 Sex Assigned At Female [facility] [facility] Start: 1955 Sex Assigned At Not on file [facility] Start: 08-24-2020 End: 06-25-2023 Sex Assigned At Located Within [facility] Other Start: 06-18-2016 End: 06-25-2023 Tobacco use and exposure Smokeless tobacco non-user [facility] Start: 08-24-2020 End: 06-25-2023 History of Social function [facility] Start: 08-07-2023 End: 08-21-2023 Alcohol intake Lifetime non-drinker (finding) [facility] Start: 05-19-2023 End: 10-15-2023 Alcohol intake Current non-drinker of alcohol (finding) [facility] Unknown [facility] Has the electric, Accredible s, oil, or water company threatened to shut off services in your home in past 12Mo No [facility] How often to you hav e a drink containing alcohol? Never [facility] Procedure Code Equipment Code Equipment Origin al Text Equipment Identifier Dates Phacoemulsification of cataract with intraocular lens implantation ()[id number] FDA Start: 08-12-2019 Phacoemulsification of cataract with intraocular lens implantation Posterior-chamber intraocular lens, pseudophakic ()[id number] FDA Start: 09-09-2019 Loop Recorder Karina schuler Mdtr - [id number] - [id number] Start: 05-24-2016 System Cor Stnt 3.0mm X 12mm 145cm [employer]ience [facility] Harry - [id number] FDA Start: 02-15-2023 Goals Date Patient Goal Desired Activity /State Clinical Notes 11-09-2020 to 10-15-2023 Plan of Care - David Florez RN - 10/15/2023 2:20 PM EDTPlan of Care - aDvid Florez RN - 10/15/2023 2:20 PM EDTPlan of Care - Sae Santiago RN - 10/14/2023 9:26 PM EDTDischarge Instructions Note Date & Type Note Facility 10-15-2023 Plan of care note Problem: Pain Goal: Patient goal is pain score less than 4, able to rest, and participant in treatment plan as appropriate Description: INTERVENTIONS: 1. Encourage patient or legal merchandiser retail representative to report early pain and ask for pain medicine when needed 2. Assess pain using appropriate pain scale and include the scale used when documenting 3. Administer analgesics based on type and severity of pain and evaluate response within appropriate time frame 4. Implement non-pharmacological measures as appropriate and evaluate response 5. Consider cultural and social influences on pain and pain management 6. Notify LIP if interventions ineffective or patient reports new pain 7. Monitor vital signs including pulse ox, end-tidal CO2 based on pain intervention 8. Reassess pain per policy 9. Teach patient or legal merchandiser retail representative interventions for comforting Outcome: Progressing Note: Evaluation of progress towards goal: Pain assessed using 0-10 scale. Patient hasn't reported any pain today. Problem: Safety Goal: Patient will be injury free during hospitalization Description: INTERVENTIONS: 1. Assess patient's risk for falls and implement fall prevention plan of care per policy 2. Provide and maintain a safe environment 3. Proper use of double Identifiers 4. Medication administration using the 5 rights 5. Hand hygiene 6. Specimens are labeled at the bedside 7. Instruct patient/ patient merchandiser retail representative about use of safety devices 8. Include patient/ patient merchandiser retail representative in decisions related to safety Outcome: Progressing Note: Evaluation of progress towards goal: Patient remains free from injury due to hospitalization at this time. Problem: Infection Goal: Absence of infection during hospitalization Description: Interventions: 1. Assess and monitor for signs and symptoms of infection 2. Monitor lab/diagnostic results 3. Monitor all insertion sites i.e., indwelling lines, tubes and drains 4. Monitor endotracheal (as able) and nasal secretions for changes in amount and color 5. Administer medications as ordered 6. Instruct and encourage patient and family to use good hand hygiene technique 7. Identify and instruct patient/patient merchandiser retail representative in use of appropriate isolation precautions for identified infection/symptoms 8. Provide and discuss with patient/patient merchandiser retail representative on educational MDRO sheet 9. Encourage and monitor nutritional status daily and consult title coordinator if indicated 10. Implement neutropenic guidelines as needed 11. Review exposure to history of communicable disease and recent travel history on admission 12. Encourage annual influenza vaccine 13. Encourage pneumonia vaccine Outcome: Progressing Note: Evaluation of progress towards goal: Patient remains free from infection due to hospitalization. Patient remains afebrile at this time. Problem: Knowledge Deficit Goal: Patient/patient merchandiser retail representative demonstrates understanding of disease process, treatment plan, medications, and discharge instructions Description: INTERVENTIONS 1. Complete learning assessment and assess knowledge base 2. Provide teaching at level of understanding 3. Provide teaching via preferred learning method(s) Outcome: Progressing Note: Evaluation of progress towards goal: Patient demonstrates understanding of plan of care and treatment plan at this time. [facility] 10-15-2023 Miscellaneous Notes Problem: Pain Goal: Patient goal is pain score less than 4, able to rest, and participant in treatment plan as appropriate Description: INTERVENTIONS: 1. Encourage patient or legal merchandiser retail representative to report early pain and ask for pain medicine when needed 2. Assess pain using appropriate pain scale and include the scale used when documenting 3. Administer analgesics based on type and severity of pain and evaluate response within appropriate time frame 4. Implement non-pharmacological measures as appropriate and evaluate response 5. Consider cultural and social influences on pain and pain management 6. Notify LIP if interventions ineffective or patient reports new pain 7. Monitor vital signs including pulse ox, end-tidal CO2 based on pain intervention 8. Reassess pain per policy 9. Teach patient or legal merchandiser retail representative interventions for comforting Outcome: Progressing Note: Evaluation of progress towards goal: Pain assessed using 0-10 scale. Patient hasn't reported any pain today. Problem: Safety Goal: Patient will be injury free during hospitalization Description: INTERVENTIONS: 1. Assess patient's risk for falls and implement fall prevention plan of care per policy 2. Provide and maintain a safe environment 3. Proper use of double Identifiers 4. Medication administration using the 5 rights 5. Hand hygiene 6. Specimens are labeled at the bedside 7. Instruct patient/ patient merchandiser retail representative about use of safety devices 8. Include patient/ patient merchandiser retail representative in decisions related to safety Outcome: Progressing Note: Evaluation of progress towards goal: Patient remains free from injury due to hospitalization at this time. Problem: Infection Goal: Absence of infection during hospitalization Description: Interventions: 1. Assess and monitor for signs and symptoms of infection 2. Monitor lab/diagnostic results 3. Monitor all insertion sites i.e., indwelling lines, tubes and drains 4. Monitor endotracheal (as able) and nasal secretions for changes in amount and color 5. Administer medications as ordered 6. Instruct and encourage patient and family to use good hand hygiene technique 7. Identify and instruct patient/patient merchandiser retail representative in use of appropriate isolation precautions for identified infection/symptoms 8. Provide and discuss with patient/patient merchandiser retail representative on educational MDRO sheet 9. Encourage and monitor nutritional status daily and consult title coordinator if indicated 10. Implement neutropenic guidelines as needed 11. Review exposure to history of communicable disease and recent travel history on admission 12. Encourage annual influenza vaccine 13. Encourage pneumonia vaccine Outcome: Progressing Note: Evaluation of progress towards goal: Patient remains free from infection due to hospitalization. Patient remains afebrile at this time. Problem: Knowledge Deficit Goal: Patient/patient merchandiser retail representative demonstrates understanding of disease process, treatment plan, medications, and discharge instructions Description: INTERVENTIONS 1. Complete learning assessment and assess knowledge base 2. Provide teaching at level of understanding 3. Provide teaching via preferred learning method(s) Outcome: Progressing Note: Evaluation of progress towards goal: Patient demonstrates understanding of plan of care and treatment plan at this time. Problem: Pain Goal: Patient goal is pain score less than 4, able to rest, and participant in treatment plan as appropriate Description: INTERVENTIONS: 1. Encourage patient or legal merchandiser retail representative to report early pain and ask for pain medicine when needed 2. Assess pain using appropriate pain scale and include the scale used when documenting 3. Administer analgesics based on type and severity of pain and evaluate response within appropriate time frame 4. Implement non-pharmacological measures as appropriate and evaluate response 5. Consider cultural and social influences on pain and pain management 6. Notify LIP if interventions ineffective or patient reports new pain 7. Monitor vital signs including pulse ox, end-tidal CO2 based on pain intervention 8. Reassess pain per policy 9. Teach patient or legal merchandiser retail representative interventions for comforting Outcome: Progressing Note: Evaluation of progress towards goal: Verbalizes adequate pain scores during shift. Problem: Safety Goal: Patient will be injury free during hospitalization Description: INTERVENTIONS: 1. Assess patient's risk for falls and implement fall prevention plan of care per policy 2. Provide and maintain a safe environment 3. Proper use of double Identifiers 4. Medication administration using the 5 rights 5. Hand hygiene 6. Specimens are labeled at the bedside 7. Instruct patient/ patient merchandiser retail representative about use of safety devices 8. Include patient/ patient merchandiser retail representative in decisions related to safety Outcome: Progressing Note: Evaluation of progress towards goal: Pt remains injury free during shift. Problem: Infection Goal: Absence of infection during hospitalization Description: Interventions: 1. Assess and monitor for signs and symptoms of infection 2. Monitor lab/diagnostic results 3. Monitor all insertion sites i.e., indwelling lines, tubes and drains 4. Monitor endotracheal (as able) and nasal secretions for changes in amount and color 5. Administer medications as ordered 6. Instruct and encourage patient and family to use good hand hygiene technique 7. Identify and instruct patient/patient merchandiser retail representative in use of appropriate isolation precautions for identified infection/symptoms 8. Provide and discuss with patient/patient merchandiser retail representative on educational MDRO sheet 9. Encourage and monitor nutritional status daily and consult title coordinator if indicated 10. Implement neutropenic guidelines as needed 11. Review exposure to history of communicable disease and recent travel history on admission 12. Encourage annual influenza vaccine 13. Encourage pneumonia vaccine Outcome: Progressing Note: Evaluation of progress towards goal: Pt afebrile and no outward signs of infection during shift. Problem: Knowledge Deficit Goal: Patient/patient merchandiser retail representative demonstrates understanding of disease process, treatment plan, medications, and discharge instructions Description: INTERVENTIONS 1. Complete learning assessment and assess knowledge base 2. Provide teaching at level of understanding 3. Provide teaching via preferred learning method(s) Outcome: Progressing Note: Evaluation of progress towards goal: Education regarding treatment plan occurring throughout admission. Problem: Discharge Planning Goal: Discharge to post-acute care, other facility, or home with appropriate resources Description: Patient's goal is: INTERVENTIONS 1. Conduct assessment to determine patient/family and health care team treatment goals, and need for post-acute services based on payer coverage, community resources, and patient preferences, and barriers to discharge 2. Coordinate with Social work, Care Navigation, and Utilization Review to arrange appropriate level of services according to patient's needs based on patient preference and payer coverage in collaboration with the physician and health care team 3. Address psychosocial, clinical, and financial barriers to discharge as identified in assessment in conjunction with the patient/family and health care team 4. Consult appropriate ancillary services (i.e.. PT/OT/ST, etc) as needed 5. Communicate with and update the patient/family, physician, and health care team regarding progress on the discharge plan 6. Identify discharge learning needs (meds, wound care, etc). 7. Arrange for needed discharge transportation as appropriate Outcome: Progressing Note: Evaluation of progress towards goal: Discharge planning in process during admission. Problem: Neurological Deficit Goal: Neurological status is stable or improving Description: Patient's goal is: INTERVENTIONS 1. Complete Neurological assessment as indicated/ordered 2. Initiate measures to prevent increased intracranial pressure 3. Monitor and assess patient's level of consciousness, motor function, sensory function, and level of assistance needed for ADLs 4. Monitor and report changes from baseline 5. Maintain blood pressure and fluid volume within ordered parameters to optimize cerebral perfusion and minimize risk of hemorrhage 6. Monitor labs and diagnostic tests 7. Administer anti-seizure medications as ordered 8. Maintain airway, patient safety and administer oxygen as ordered 9. Monitor patient for seizure activity, document and report duration and description of seizure to LIP 10. If seizure occurs, turn patient to side and suction secretions as needed 11. Reorient patient post seizure 12. Seizure pads on all 4 side rails 13. Instruct patient/family to notify RN of any seizure activity 14. Instruct patient/family to call for assistance with activity based on assessment 15. Utilize bleeding precautions if thrombolytic given Outcome: Progressing Note: Evaluation of progress towards goal: Neurologically stable during shift. Problem: Activity Intolerance/Impaired Mobility Goal: Mobility/activity is maintained at optimum level for patient Description: Patient's goal is: INTERVENTIONS 1. Assess and monitor patient barriers to mobility and need for assistive/adaptive devices 2. Assess patient's emotional response to limitations 3. Collaborate with interdisciplinary teams and initiate plans and interventions as ordered 4. Encourage independent activity per tolerance 5. Maintain proper body alignment 6. Perform active/passive ROM as tolerated/ordered 7. Coordinate activities to conserve energy 8. Reposition patient 9. Ensure adequate rest/sleep time Outcome: Progressing Note: Evaluation of progress towards goal: Mobility at baseline during shift. Problem: Communication Impairment Goal: Ability to express needs and understand communication Description: INTERVENTIONS 1. Assess patient's communication skills and ability to understand information 2. Provide alternate method of communication if needed i.e. ipad, sign board, pen/paper 3. Collaborate with Speech Therapy to develop effective communication strategies 4. Include patient/patient merchandiser retail representative in decisions related to communication Outcome: Progressing Note: Evaluation of progress towards goal: Communication at baseline during shift. Problem: Potential for Aspiration Goal: Patient's risk of aspiration is minimized Description: INTERVENTIONS 1. Assess and monitor vital signs, respiratory status, and labs (WBC) 2. Monitor for signs of aspiration (tachypnea, cough, rales, wheezing, cyanosis, fever) 3. Assess and monitor patient's ability to swallow 4. Place patient up in chair to eat if possible 5. Elevate head of bed 90 degrees to eat if unable to get patient up into chair 6. Supervise patient during oral intake 7. Instruct patient to take small bites 8. Instruct patient to take small single sips when taking liquids 9. Follow patient-specific strategies generated by speech pathologist 10. Complete bedside swallow screen if appropriate and take actions as indicated. 11. Administer prescribed medications and monitor effects Outcome: Progressing Note: Evaluation of progress towards goal: Aspiration avoided during shift. Problem: Anxiety Goal: Anxiety is at manageable level Description: Patient's goal is: INTERVENTIONS 1. Assess and monitor patient's anxiety level 2. Monitor for signs and symptoms of anxiety both physical and emotional (heart palpitations, chest pain, shortness of breath, headaches, nausea, feeling jumpy, restlessness, irritable, apprehensive) 3. Reorient/orient patient to unit/surroundings 4. Explain treatment plan 5. Explain tests/procedures prior to initiation 6. Encourage participation in care 7. Encourage verbalization of concerns/fears 8. Assess coping mechanisms 9. Assist in developing anxiety-reducing skills 10. Administer complimentary therapies 11. Manage patient's environment 12. Limit or eliminate stimulants such as caffeine and nicotine 13. Collaborate with ancillary departments 14. Include patient/patient merchandiser retail representative in decisions related to anxiety Outcome: Progressing Note: Evaluation of progress towards goal: Anxiety at baseline during shift. Problem: Inadequate Coping Goal: Demonstrates and verbalizes ability to cope effectively Description: Patient's goal is: INTERVENTIONS 1. Patient is able to verbalize feelings related to emotional state 2. Encourage verbalization of feelings, perceptions, fears, stressors, loss of loved ones 3. Encourage verbalization of problems out of their control 4. Encourage participation in care and self management 5. Inform patient of all treatment/care prior to providing care 6. Collaborate with pastoral/spiritual care, clinical social work therapist, mental health counselor as needed. 7. Instruct patient on diversional activities such as physical activity, distraction, and deep breathing exercises to assist with coping 8. Involve patient's merchandiser retail representative in care Outcome: Progressing Note: Evaluation of progress towards goal: Coping at baseline during shift. Problem: Potential for Compromised Skin Integrity Goal: Skin integrity is maintained or improved Description: Patient's goal is: INTERVENTIONS 1. Perform initial skin assessment on admission and as needed 2. Turn patient every 2 hours and PRN 3. Relieve pressure to bony prominences 4. Avoid shearing 5. Keep skin clean and dry 6. Alternate a full bath with partial baths for elderly 7. Encourage use of lotion/moisturizer on skin 8. Monitor patient's hygiene practices 9. Float heels 10. Collaborate with interdisciplinary team and initiate plans and interventions as needed Outcome: Progressing Note: Evaluation of progress towards goal: No signs of injury during shift. Goal: Patient's nutritional intake is adequate Description: Patient's goal is: INTERVENTIONS 1. Assess and monitor food intake and supplements, patient food preferences, nausea, vomiting, labs, oral cavity (gums, teeth, tongue, mucosa), proper denture fit, and cultural beliefs 2. Monitor for signs of hypoglycemia and hyperglycemia 3. Collaborate with interdisciplinary team and initiate plan and interventions as ordered 4. Monitor patient's weight 5. Assist patient with meals/food selection 6. Assist patient with eating 7. Allow adequate time for meals 8. Provide pleasant environment during mealtime 9. Increase social contact during mealtimes 10. Plan activities to conserve energy 11. Encourage/perform oral hygiene as appropriate 12. Encourage patient to take dietary supplement as ordered 13. Collaborate with clinical title coordinator 14. Include patient/ patient's merchandiser retail representative in decisions related to nutrition Outcome: Progressing Note: Evaluation of progress towards goal: Patient tolerated adequate intake during shift. Problem: Potential for Inadequate Tissue Perfusion - Venous Goal: Tissue perfusion is adequate - venous Description: Patient's goal is: INTERVENTIONS 1. Assess and monitor skin color and temperature, skin integrity, pulses, capillary refill, edema, pain in extremities and Homans' sign 2. Monitor for signs and symptoms (dyspnea, tachypnea, and tachycardia) 3. Encourage ambulation/activity per patient's tolerance and physician order 4. Elevate feet when in chair 5. Encourage patient to do ankle pump exercises 6. Apply anti-embolism stockings/devices as ordered Outcome: Progressing Note: Evaluation of progress towards goal: Tissue perfusion adequate during shift. Problem: Self Care Deficit Goal: Return ADL status to a safe level of function Description: Patient's goal is: INTERVENTIONS 1. Administer medication as ordered 2. Assess ADL deficits and provide assistive devices as needed 3. Obtain PT/OT consults as needed 4. Assist and instruct patient to increase activity and self care as tolerated Outcome: Progressing Note: Evaluation of progress towards goal: ADL status at baseline during shift. Problem: Moderate - High Risk Fall Score Description: Beal Fall Score of =/> 25 or indicated by [facility] Assessment Goal: Patient should be free from fall Description: Interventions: 1. [place] to environment 2. Hourly rounds addressing the 4 P's (Pain, Positioning, Possessions, Potty) 3. Clear area of hazards (spills, clutter, electrical cords, unnecessary equipment) 4. Place equipment (bed & TV controls, call light, phone, urinal) within reach 5. Encourage patient to wear glasses and hearing aides as appropriate 6. Maintain bed in lowest position 7. Lock wheels on bed/wheelchair 8. Provide adequate lighting, including night light 9. Assess need for additional bedding, food/fluids, pain med's prior to sleep/routinely 10. Provide gripper slippers or personal non-skid footwear 11. Teach patient and patient merchandiser retail representative to maintain environment for safety and engage in all aspects of fall prevention program 12. Remind patient to call for help before getting out of bed 13. Initiate bed/chair/exit alarms supportive devices as appropriate, (chair wedge, no-skid floor mat, raised edge mattress, hip protectors) 14. Locate patient bed assignment for optimal visualization 15. Evaluate and identify Safe Patient Handling Equipment needs 16. Provide supervision when out of bed or chair 17. Utilize gait belt as needed to assist with ambulation 18. Place adaptive equipment (cane, walker) within reach 19. Request patient merchandiser retail representative bring adaptive equipment/mobility aids from home or obtain and provide as needed 20. Consult pharmacy regarding effects of med's affecting mobility, cognition, and alternatives 21. Obtain physician order for PT if risk factors associated with mobility are present 22. Obtain physician order for OT as appropriate 23. Utilize diversional activities 24. Educate patient and patient merchandiser retail representative how to maintain a safe environment during visitation times (notify nurse prior to leaving bedside) 25. Consider appropriateness of medical or non-medical reimbursement manager 26. Set up voiding schedule as appropriate (every 2 hours) Outcome: Progressing Note: Evaluation of progress towards goal: No signs of falls during shift. Problem: Pain Goal: Patient goal is pain score less than 4, able to rest, and participant in treatment plan as appropriate Description: INTERVENTIONS: 1. Encourage patient or legal merchandiser retail representative to report early pain and ask for pain medicine when needed 2. Assess pain using appropriate pain scale and include the scale used when documenting 3. Administer analgesics based on type and severity of pain and evaluate response within appropriate time frame 4. Implement non-pharmacological measures as appropriate and evaluate response 5. Consider cultural and social influences on pain and pain management 6. Notify LIP if interventions ineffective or patient reports new pain 7. Monitor vital signs including pulse ox, end-tidal CO2 based on pain intervention 8. Reassess pain per policy 9. Teach patient or legal merchandiser retail representative interventions for comforting Outcome: Progressing Note: Evaluation of progress towards goal: Pt denies pain at this time. Problem: Safety Goal: Patient will be injury free during hospitalization Description: INTERVENTIONS: 1. Assess patient's risk for falls and implement fall prevention plan of care per policy 2. Provide and maintain a safe environment 3. Proper use of double Identifiers 4. Medication administration using the 5 rights 5. Hand hygiene 6. Specimens are labeled at the bedside 7. Instruct patient/ patient merchandiser retail representative about use of safety devices 8. Include patient/ patient merchandiser retail representative in decisions related to safety Outcome: Progressing Note: Evaluation of progress towards goal: Pt is free from injuries at this time. Problem: Infection Goal: Absence of infection during hospitalization Description: Interventions: 1. Assess and monitor for signs and symptoms of infection 2. Monitor lab/diagnostic results 3. Monitor all insertion sites i.e., indwelling lines, tubes and drains 4. Monitor endotracheal (as able) and nasal secretions for changes in amount and color 5. Administer medications as ordered 6. Instruct and encourage patient and family to use good hand hygiene technique 7. Identify and instruct patient/patient merchandiser retail representative in use of appropriate isolation precautions for identified infection/symptoms 8. Provide and discuss with patient/patient merchandiser retail representative on educational MDRO sheet 9. Encourage and monitor nutritional status daily and consult title coordinator if indicated 10. Implement neutropenic guidelines as needed 11. Review exposure to history of communicable disease and recent travel history on admission 12. Encourage annual influenza vaccine 13. Encourage pneumonia vaccine Outcome: Progressing Note: Evaluation of progress towards goal: Pt is afebrile at this time. Problem: Knowledge Deficit Goal: Patient/patient merchandiser retail representative demonstrates understanding of disease process, treatment plan, medications, and discharge instructions Description: INTERVENTIONS 1. Complete learning assessment and assess knowledge base 2. Provide teaching at level of understanding 3. Provide teaching via preferred learning method(s) Outcome: Progressing Note: Evaluation of progress towards goal: Pt updated on plan of care. Problem: Moderate - High Risk Fall Score Description: Beal Fall Score of =/> 25 or indicated by [facility] Assessment Goal: Patient should be free from fall Description: Interventions: 1. [place] to environment 2. Hourly rounds addressing the 4 P's (Pain, Positioning, Possessions, Potty) 3. Clear area of hazards (spills, clutter, electrical cords, unnecessary equipment) 4. Place equipment (bed & TV controls, call light, phone, urinal) within reach 5. Encourage patient to wear glasses and hearing aides as appropriate 6. Maintain bed in lowest position 7. Lock wheels on bed/wheelchair 8. Provide adequate lighting, including night light 9. Assess need for additional bedding, food/fluids, pain med's prior to sleep/routinely 10. Provide gripper slippers or personal non-skid footwear 11. Teach patient and patient merchandiser retail representative to maintain environment for safety and engage in all aspects of fall prevention program 12. Remind patient to call for help before getting out of bed 13. Initiate bed/chair/exit alarms supportive devices as appropriate, (chair wedge, no-skid floor mat, raised edge mattress, hip protectors) 14. Locate patient bed assignment for optimal visualization 15. Evaluate and identify Safe Patient Handling Equipment needs 16. Provide supervision when out of bed or chair 17. Utilize gait belt as needed to assist with ambulation 18. Place adaptive equipment (cane, walker) within reach 19. Request patient merchandiser retail representative bring adaptive equipment/mobility aids from home or obtain and provide as needed 20. Consult pharmacy regarding effects of med's affecting mobility, cognition, and alternatives 21. Obtain physician order for PT if risk factors associated with mobility are present 22. Obtain physician order for OT as appropriate 23. Utilize diversional activities 24. Educate patient and patient merchandiser retail representative how to maintain a safe environment during visitation times (notify nurse prior to leaving bedside) 25. Consider appropriateness of medical or non-medical reimbursement manager 26. Set up voiding schedule as appropriate (every 2 hours) Outcome: Progressing Note: Evaluation of progress towards goal: Pt is free from falls at this time. Pre Procedure Evaluation: H&P was reviewed and the patient was examined. No change has occurred in the patient's condition since the H&P was completed. 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 Visit: ACS > 24hrs Chest Pain Symptom Assessment: typical Cardiovascular Instability: No Heart Failure: Yes Congestive Heart Failure (NYHA Classification within 2 weeks): III Heart Failure Newly Diagnosed: No Heart Failure Type: Systolic Electrocardiac Assessment Method: None Stress Test Performed: No Cardiac CTA: No CSHA Clinical Frailty Scale (Assessment immediately prior to procedure): 6: Moderately Frail Cardiac Arrest Out of Hospital: No Cardiac Arrest at Transferring Facility: No Adjusted CathPCI Bleeding Event Risk Patient's Risk 1.8% National Average 3.3% as of February, In the [place], the average bleeding event risk for all patients undergoing this procedure is 3.3%. Taking into account the patient s specific clinical condition, the statistical estimate that the patient may experience a bleeding event is 1.8%. This means that for every 100 patients having a similar clinical makeup, there would be 1.8 that experienced a bleeding event. Bleeding Event is an absolute drop in hemoglobin ? 4g/dL, a RBC transfusion and/or a procedural intervention/surgery to reverse/stop bleeding that occurs within 72 hours of the PCI procedure. The model provides an objective risk-adjusted estimate of bleeding which has real value for both patient and provider. It should be considered as one element in the evaluation process, to be considered along with the other traditional factors that determine whether the patient is an appropriate candidate for the procedure. Problem: Pain Goal: Patient goal is pain score less than 4, able to rest, and participant in treatment plan as appropriate Description: INTERVENTIONS: 1. Encourage patient or legal merchandiser retail representative to report early pain and ask for pain medicine when needed 2. Assess pain using appropriate pain scale and include the scale used when documenting 3. Administer analgesics based on type and severity of pain and evaluate response within appropriate time frame 4. Implement non-pharmacological measures as appropriate and evaluate response 5. Consider cultural and social influences on pain and pain management 6. Notify LIP if interventions ineffective or patient reports new pain 7. Monitor vital signs including pulse ox, end-tidal CO2 based on pain intervention 8. Reassess pain per policy 9. Teach patient or legal merchandiser retail representative interventions for comforting Outcome: Progressing Note: Evaluation of progress towards goal: Pain assessed using 0-10 pain scale. Pain medication administered as needed. Patient denies pain at this time. Problem: Safety Goal: Patient will be injury free during hospitalization Description: INTERVENTIONS: 1. Assess patient's risk for falls and implement fall prevention plan of care per policy 2. Provide and maintain a safe environment 3. Proper use of double Identifiers 4. Medication administration using the 5 rights 5. Hand hygiene 6. Specimens are labeled at the bedside 7. Instruct patient/ patient merchandiser retail representative about use of safety devices 8. Include patient/ patient merchandiser retail representative in decisions related to safety Outcome: Progressing Note: Evaluation of progress towards goal: Area clear of hazards. Bed locked and in lowest position. Side rails up. Double identifiers and five rights utilized for medication administration. Pt remains free from injury at this time. Problem: Infection Goal: Absence of infection during hospitalization Description: Interventions: 1. Assess and monitor for signs and symptoms of infection 2. Monitor lab/diagnostic results 3. Monitor all insertion sites i.e., indwelling lines, tubes and drains 4. Monitor endotracheal (as able) and nasal secretions for changes in amount and color 5. Administer medications as ordered 6. Instruct and encourage patient and family to use good hand hygiene technique 7. Identify and instruct patient/patient merchandiser retail representative in use of appropriate isolation precautions for identified infection/symptoms 8. Provide and discuss with patient/patient merchandiser retail representative on educational MDRO sheet 9. Encourage and monitor nutritional status daily and consult title coordinator if indicated 10. Implement neutropenic guidelines as needed 11. Review exposure to history of communicable disease and recent travel history on admission 12. Encourage annual influenza vaccine 13. Encourage pneumonia vaccine Outcome: Progressing Note: Evaluation of progress towards goal: Patient afebrile and WBC of 5.3. Will continue to monitor for signs of infection Problem: Knowledge Deficit Goal: Patient/patient merchandiser retail representative demonstrates understanding of disease process, treatment plan, medications, and discharge instructions Description: INTERVENTIONS 1. Complete learning assessment and assess knowledge base 2. Provide teaching at level of understanding 3. Provide teaching via preferred learning method(s) Outcome: Progressing Note: Evaluation of progress towards goal: Education provided at appropriate level of understanding. Pt demonstrated understanding of education provided. Problem: Discharge Planning Goal: Discharge to post-acute care, other facility, or home with appropriate resources Description: Patient's goal is: INTERVENTIONS 1. Conduct assessment to determine patient/family and health care team treatment goals, and need for post-acute services based on payer coverage, community resources, and patient preferences, and barriers to discharge 2. Coordinate with Social work, Care Navigation, and Utilization Review to arrange appropriate level of services according to patient's needs based on patient preference and payer coverage in collaboration with the physician and health care team 3. Address psychosocial, clinical, and financial barriers to discharge as identified in assessment in conjunction with the patient/family and health care team 4. Consult appropriate ancillary services (i.e.. PT/OT/ST, etc) as needed 5. Communicate with and update the patient/family, physician, and health care team regarding progress on the discharge plan 6. Identify discharge learning needs (meds, wound care, etc). 7. Arrange for needed discharge transportation as appropriate Outcome: Progressing Note: Evaluation of progress towards goal: Pt to remain in CICU at this time. Problem: Activity Intolerance/Impaired Mobility Goal: Mobility/activity is maintained at optimum level for patient Description: Patient's goal is: INTERVENTIONS 1. Assess and monitor patient barriers to mobility and need for assistive/adaptive devices 2. Assess patient's emotional response to limitations 3. Collaborate with interdisciplinary teams and initiate plans and interventions as ordered 4. Encourage independent activity per tolerance 5. Maintain proper body alignment 6. Perform active/passive ROM as tolerated/ordered 7. Coordinate activities to conserve energy 8. Reposition patient 9. Ensure adequate rest/sleep time Outcome: Progressing Note: Evaluation of progress towards goal: Advancing activity as tolerated. Problem: Communication Impairment Goal: Ability to express needs and understand communication Description: INTERVENTIONS 1. Assess patient's communication skills and ability to understand information 2. Provide alternate method of communication if needed i.e. ipad, sign board, pen/paper 3. Collaborate with Speech Therapy to develop effective communication strategies 4. Include patient/patient merchandiser retail representative in decisions related to communication Outcome: Progressing Note: Evaluation of progress towards goal: Patient is able to express needs and communicate. Problem: Potential for Compromised Skin Integrity Goal: Skin integrity is maintained or improved Description: Patient's goal is: INTERVENTIONS 1. Perform initial skin assessment on admission and as needed 2. Turn patient every 2 hours and PRN 3. Relieve pressure to bony prominences 4. Avoid shearing 5. Keep skin clean and dry 6. Alternate a full bath with partial baths for elderly 7. Encourage use of lotion/moisturizer on skin 8. Monitor patient's hygiene practices 9. Float heels 10. Collaborate with interdisciplinary team and initiate plans and interventions as needed Outcome: Progressing Note: Evaluation of progress towards goal: Skin clean, dry, and intact. Heels elevated off bed. Skin clear at this time. Problem: Potential for Compromised Skin Integrity Goal: Patient's nutritional intake is adequate Description: Patient's goal is: INTERVENTIONS 1. Assess and monitor food intake and supplements, patient food preferences, nausea, vomiting, labs, oral cavity (gums, teeth, tongue, mucosa), proper denture fit, and cultural beliefs 2. Monitor for signs of hypoglycemia and hyperglycemia 3. Collaborate with interdisciplinary team and initiate plan and interventions as ordered 4. Monitor patient's weight 5. Assist patient with meals/food selection 6. Assist patient with eating 7. Allow adequate time for meals 8. Provide pleasant environment during mealtime 9. Increase social contact during mealtimes 10. Plan activities to conserve energy 11. Encourage/perform oral hygiene as appropriate 12. Encourage patient to take dietary supplement as ordered 13. Collaborate with clinical title coordinator 14. Include patient/ patient's merchandiser retail representative in decisions related to nutrition Outcome: Progressing Note: Evaluation of progress towards goal: Collaborating with interdisciplinary team to ensure adequate nutritional intake. Problem: Moderate - High Risk Fall Score Description: Beal Fall Score of =/> 25 or indicated by [facility] Assessment Goal: Patient should be free from fall Description: Interventions: 1. [place] to environment 2. Hourly rounds addressing the 4 P's (Pain, Positioning, Possessions, Potty) 3. Clear area of hazards (spills, clutter, electrical cords, unnecessary equipment) 4. Place equipment (bed & TV controls, call light, phone, urinal) within reach 5. Encourage patient to wear glasses and hearing aides as appropriate 6. Maintain bed in lowest position 7. Lock wheels on bed/wheelchair 8. Provide adequate lighting, including night light 9. Assess need for additional bedding, food/fluids, pain med's prior to sleep/routinely 10. Provide gripper slippers or personal non-skid footwear 11. Teach patient and patient merchandiser retail representative to maintain environment for safety and engage in all aspects of fall prevention program 12. Remind patient to call for help before getting out of bed 13. Initiate bed/chair/exit alarms supportive devices as appropriate, (chair wedge, no-skid floor mat, raised edge mattress, hip protectors) 14. Locate patient bed assignment for optimal visualization 15. Evaluate and identify Safe Patient Handling Equipment needs 16. Provide supervision when out of bed or chair 17. Utilize gait belt as needed to assist with ambulation 18. Place adaptive equipment (cane, walker) within reach 19. Request patient merchandiser retail representative bring adaptive equipment/mobility aids from home or obtain and provide as needed 20. Consult pharmacy regarding effects of med's affecting mobility, cognition, and alternatives 21. Obtain physician order for PT if risk factors associated with mobility are present 22. Obtain physician order for OT as appropriate 23. Utilize diversional activities 24. Educate patient and patient merchandiser retail representative how to maintain a safe environment during visitation times (notify nurse prior to leaving bedside) 25. Consider appropriateness of medical or non-medical reimbursement manager 26. Set up voiding schedule as appropriate (every 2 hours) Outcome: Progressing Note: Evaluation of progress towards goal: Area clear of hazards. Bed locked and in lowest position. Side rails up. Hourly rounding complete. Pt remains free from falls at this time. Problem: Pain Goal: Patient goal is pain score less than 4, able to rest, and participant in treatment plan as appropriate Description: INTERVENTIONS: 1. Encourage patient or legal merchandiser retail representative to report early pain and ask for pain medicine when needed 2. Assess pain using appropriate pain scale and include the scale used when documenting 3. Administer analgesics based on type and severity of pain and evaluate response within appropriate time frame 4. Implement non-pharmacological measures as appropriate and evaluate response 5. Consider cultural and social influences on pain and pain management 6. Notify LIP if interventions ineffective or patient reports new pain 7. Monitor vital signs including pulse ox, end-tidal CO2 based on pain intervention 8. Reassess pain per policy 9. Teach patient or legal merchandiser retail representative interventions for comforting Outcome: Progressing Note: Evaluation of progress towards goal: Pt denies pain at this time. Problem: Safety Goal: Patient will be injury free during hospitalization Description: INTERVENTIONS: 1. Assess patient's risk for falls and implement fall prevention plan of care per policy 2. Provide and maintain a safe environment 3. Proper use of double Identifiers 4. Medication administration using the 5 rights 5. Hand hygiene 6. Specimens are labeled at the bedside 7. Instruct patient/ patient merchandiser retail representative about use of safety devices 8. Include patient/ patient merchandiser retail representative in decisions related to safety Outcome: Progressing Note: Evaluation of progress towards goal: Pt is free from injuries at this time. Problem: Infection Goal: Absence of infection during hospitalization Description: Interventions: 1. Assess and monitor for signs and symptoms of infection 2. Monitor lab/diagnostic results 3. Monitor all insertion sites i.e., indwelling lines, tubes and drains 4. Monitor endotracheal (as able) and nasal secretions for changes in amount and color 5. Administer medications as ordered 6. Instruct and encourage patient and family to use good hand hygiene technique 7. Identify and instruct patient/patient merchandiser retail representative in use of appropriate isolation precautions for identified infection/symptoms 8. Provide and discuss with patient/patient merchandiser retail representative on educational MDRO sheet 9. Encourage and monitor nutritional status daily and consult title coordinator if indicated 10. Implement neutropenic guidelines as needed 11. Review exposure to history of communicable disease and recent travel history on admission 12. Encourage annual influenza vaccine 13. Encourage pneumonia vaccine Outcome: Progressing Note: Evaluation of progress towards goal: Pt is afebrile at this time. Problem: Knowledge Deficit Goal: Patient/patient merchandiser retail representative demonstrates understanding of disease process, treatment plan, medications, and discharge instructions Description: INTERVENTIONS 1. Complete learning assessment and assess knowledge base 2. Provide teaching at level of understanding 3. Provide teaching via preferred learning method(s) Outcome: Progressing Note: Evaluation of progress towards goal: Pt updated on plan of care. Problem: Discharge Planning Goal: Discharge to post-acute care, other facility, or home with appropriate resources Description: Patient's goal is: INTERVENTIONS 1. Conduct assessment to determine patient/family and health care team treatment goals, and need for post-acute services based on payer coverage, community resources, and patient preferences, and barriers to discharge 2. Coordinate with Social work, Care Navigation, and Utilization Review to arrange appropriate level of services according to patient's needs based on patient preference and payer coverage in collaboration with the physician and health care team 3. Address psychosocial, clinical, and financial barriers to discharge as identified in assessment in conjunction with the patient/family and health care team 4. Consult appropriate ancillary services (i.e.. PT/OT/ST, etc) as needed 5. Communicate with and update the patient/family, physician, and health care team regarding progress on the discharge plan 6. Identify discharge learning needs (meds, wound care, etc). 7. Arrange for needed discharge transportation as appropriate Outcome: Progressing Note: Evaluation of progress towards goal: Pt is not ready for discharge at this time. Problem: Moderate - High Risk Fall Score Description: Beal Fall Score of =/> 25 or indicated by [facility] Assessment Goal: Patient should be free from fall Description: Interventions: 1. [place] to environment 2. Hourly rounds addressing the 4 P's (Pain, Positioning, Possessions, Potty) 3. Clear area of hazards (spills, clutter, electrical cords, unnecessary equipment) 4. Place equipment (bed & TV controls, call light, phone, urinal) within reach 5. Encourage patient to wear glasses and hearing aides as appropriate 6. Maintain bed in lowest position 7. Lock wheels on bed/wheelchair 8. Provide adequate lighting, including night light 9. Assess need for additional bedding, food/fluids, pain med's prior to sleep/routinely 10. Provide gripper slippers or personal non-skid footwear 11. Teach patient and patient merchandiser retail representative to maintain environment for safety and engage in all aspects of fall prevention program 12. Remind patient to call for help before getting out of bed 13. Initiate bed/chair/exit alarms supportive devices as appropriate, (chair wedge, no-skid floor mat, raised edge mattress, hip protectors) 14. Locate patient bed assignment for optimal visualization 15. Evaluate and identify Safe Patient Handling Equipment needs 16. Provide supervision when out of bed or chair 17. Utilize gait belt as needed to assist with ambulation 18. Place adaptive equipment (cane, walker) within reach 19. Request patient merchandiser retail representative bring adaptive equipment/mobility aids from home or obtain and provide as needed 20. Consult pharmacy regarding effects of med's affecting mobility, cognition, and alternatives 21. Obtain physician order for PT if risk factors associated with mobility are present 22. Obtain physician order for OT as appropriate 23. Utilize diversional activities 24. Educate patient and patient merchandiser retail representative how to maintain a safe environment during visitation times (notify nurse prior to leaving bedside) 25. Consider appropriateness of medical or non-medical reimbursement manager 26. Set up voiding schedule as appropriate (every 2 hours) Outcome: Progressing Note: Evaluation of progress towards goal: Pt is free from falls at this time. Pt comfortable. No chest pain. No sob on 2 L ECG without sig ST abn Tr 13 Continues on heparin/DAPT Ionized mg .24 NSTEMI 2. Acute on chronic heart failure Keep NPO as LHC may be considered Supplement mg before diuresing Problem: Pain Goal: Patient goal is pain score less than 4, able to rest, and participant in treatment plan as appropriate Description: INTERVENTIONS: 1. Encourage patient or legal merchandiser retail representative to report early pain and ask for pain medicine when needed 2. Assess pain using appropriate pain scale and include the scale used when documenting 3. Administer analgesics based on type and severity of pain and evaluate response within appropriate time frame 4. Implement non-pharmacological measures as appropriate and evaluate response 5. Consider cultural and social influences on pain and pain management 6. Notify LIP if interventions ineffective or patient reports new pain 7. Monitor vital signs including pulse ox, end-tidal CO2 based on pain intervention 8. Reassess pain per policy 9. Teach patient or legal merchandiser retail representative interventions for comforting Outcome: Progressing Note: Evaluation of progress towards goal: Verbalizes adequate pain scores during shift. Problem: Safety Goal: Patient will be injury free during hospitalization Description: INTERVENTIONS: 1. Assess patient's risk for falls and implement fall prevention plan of care per policy 2. Provide and maintain a safe environment 3. Proper use of double Identifiers 4. Medication administration using the 5 rights 5. Hand hygiene 6. Specimens are labeled at the bedside 7. Instruct patient/ patient merchandiser retail representative about use of safety devices 8. Include patient/ patient merchandiser retail representative in decisions related to safety Outcome: Progressing Note: Evaluation of progress towards goal: Pt remains injury free during shift. Problem: Infection Goal: Absence of infection during hospitalization Description: Interventions: 1. Assess and monitor for signs and symptoms of infection 2. Monitor lab/diagnostic results 3. Monitor all insertion sites i.e., indwelling lines, tubes and drains 4. Monitor endotracheal (as able) and nasal secretions for changes in amount and color 5. Administer medications as ordered 6. Instruct and encourage patient and family to use good hand hygiene technique 7. Identify and instruct patient/patient merchandiser retail representative in use of appropriate isolation precautions for identified infection/symptoms 8. Provide and discuss with patient/patient merchandiser retail representative on educational MDRO sheet 9. Encourage and monitor nutritional status daily and consult title coordinator if indicated 10. Implement neutropenic guidelines as needed 11. Review exposure to history of communicable disease and recent travel history on admission 12. Encourage annual influenza vaccine 13. Encourage pneumonia vaccine Outcome: Progressing Note: Evaluation of progress towards goal: Pt afebrile and no outward signs of infection during shift. Problem: Knowledge Deficit Goal: Patient/patient merchandiser retail representative demonstrates understanding of disease process, treatment plan, medications, and discharge instructions Description: INTERVENTIONS 1. Complete learning assessment and assess knowledge base 2. Provide teaching at level of understanding 3. Provide teaching via preferred learning method(s) Outcome: Progressing Note: Evaluation of progress towards goal: Education regarding treatment plan occurring throughout admission. Problem: Discharge Planning Goal: Discharge to post-acute care, other facility, or home with appropriate resources Description: Patient's goal is: INTERVENTIONS 1. Conduct assessment to determine patient/family and health care team treatment goals, and need for post-acute services based on payer coverage, community resources, and patient preferences, and barriers to discharge 2. Coordinate with Social work, Care Navigation, and Utilization Review to arrange appropriate level of services according to patient's needs based on patient preference and payer coverage in collaboration with the physician and health care team 3. Address psychosocial, clinical, and financial barriers to discharge as identified in assessment in conjunction with the patient/family and health care team 4. Consult appropriate ancillary services (i.e.. PT/OT/ST, etc) as needed 5. Communicate with and update the patient/family, physician, and health care team regarding progress on the discharge plan 6. Identify discharge learning needs (meds, wound care, etc). 7. Arrange for needed discharge transportation as appropriate Outcome: Progressing Note: Evaluation of progress towards goal: Discharge planning in process during admission. Problem: Neurological Deficit Goal: Neurological status is stable or improving Description: Patient's goal is: INTERVENTIONS 1. Complete Neurological assessment as indicated/ordered 2. Initiate measures to prevent increased intracranial pressure 3. Monitor and assess patient's level of consciousness, motor function, sensory function, and level of assistance needed for ADLs 4. Monitor and report changes from baseline 5. Maintain blood pressure and fluid volume within ordered parameters to optimize cerebral perfusion and minimize risk of hemorrhage 6. Monitor labs and diagnostic tests 7. Administer anti-seizure medications as ordered 8. Maintain airway, patient safety and administer oxygen as ordered 9. Monitor patient for seizure activity, document and report duration and description of seizure to LIP 10. If seizure occurs, turn patient to side and suction secretions as needed 11. Reorient patient post seizure 12. Seizure pads on all 4 side rails 13. Instruct patient/family to notify RN of any seizure activity 14. Instruct patient/family to call for assistance with activity based on assessment 15. Utilize bleeding precautions if thrombolytic given Outcome: Progressing Note: Evaluation of progress towards goal: Neurologically intact during shift. Problem: Activity Intolerance/Impaired Mobility Goal: Mobility/activity is maintained at optimum level for patient Description: Patient's goal is: INTERVENTIONS 1. Assess and monitor patient barriers to mobility and need for assistive/adaptive devices 2. Assess patient's emotional response to limitations 3. Collaborate with interdisciplinary teams and initiate plans and interventions as ordered 4. Encourage independent activity per tolerance 5. Maintain proper body alignment 6. Perform active/passive ROM as tolerated/ordered 7. Coordinate activities to conserve energy 8. Reposition patient 9. Ensure adequate rest/sleep time Outcome: Progressing Note: Evaluation of progress towards goal: Mobility at baseline during shift. Problem: Communication Impairment Goal: Ability to express needs and understand communication Description: INTERVENTIONS 1. Assess patient's communication skills and ability to understand information 2. Provide alternate method of communication if needed i.e. ipad, sign board, pen/paper 3. Collaborate with Speech Therapy to develop effective communication strategies 4. Include patient/patient merchandiser retail representative in decisions related to communication Outcome: Progressing Note: Evaluation of progress towards goal: Communication at baseline during shift. Problem: Potential for Aspiration Goal: Patient's risk of aspiration is minimized Description: INTERVENTIONS 1. Assess and monitor vital signs, respiratory status, and labs (WBC) 2. Monitor for signs of aspiration (tachypnea, cough, rales, wheezing, cyanosis, fever) 3. Assess and monitor patient's ability to swallow 4. Place patient up in chair to eat if possible 5. Elevate head of bed 90 degrees to eat if unable to get patient up into chair 6. Supervise patient during oral intake 7. Instruct patient to take small bites 8. Instruct patient to take small single sips when taking liquids 9. Follow patient-specific strategies generated by speech pathologist 10. Complete bedside swallow screen if appropriate and take actions as indicated. 11. Administer prescribed medications and monitor effects Outcome: Progressing Note: Evaluation of progress towards goal: Aspiration risk avoided during shift. Problem: Anxiety Goal: Anxiety is at manageable level Description: Patient's goal is: INTERVENTIONS 1. Assess and monitor patient's anxiety level 2. Monitor for signs and symptoms of anxiety both physical and emotional (heart palpitations, chest pain, shortness of breath, headaches, nausea, feeling jumpy, restlessness, irritable, apprehensive) 3. Reorient/orient patient to unit/surroundings 4. Explain treatment plan 5. Explain tests/procedures prior to initiation 6. Encourage participation in care 7. Encourage verbalization of concerns/fears 8. Assess coping mechanisms 9. Assist in developing anxiety-reducing skills 10. Administer complimentary therapies 11. Manage patient's environment 12. Limit or eliminate stimulants such as caffeine and nicotine 13. Collaborate with ancillary departments 14. Include patient/patient merchandiser retail representative in decisions related to anxiety Outcome: Progressing Note: Evaluation of progress towards goal: Anxiety at baseline during shift. Problem: Inadequate Coping Goal: Demonstrates and verbalizes ability to cope effectively Description: Patient's goal is: INTERVENTIONS 1. Patient is able to verbalize feelings related to emotional state 2. Encourage verbalization of feelings, perceptions, fears, stressors, loss of loved ones 3. Encourage verbalization of problems out of their control 4. Encourage participation in care and self management 5. Inform patient of all treatment/care prior to providing care 6. Collaborate with pastoral/spiritual care, clinical social work therapist, mental health counselor as needed. 7. Instruct patient on diversional activities such as physical activity, distraction, and deep breathing exercises to assist with coping 8. Involve patient's merchandiser retail representative in care Outcome: Progressing Note: Evaluation of progress towards goal: Coping at baseline during shift. Problem: Potential for Compromised Skin Integrity Goal: Skin integrity is maintained or improved Description: Patient's goal is: INTERVENTIONS 1. Perform initial skin assessment on admission and as needed 2. Turn patient every 2 hours and PRN 3. Relieve pressure to bony prominences 4. Avoid shearing 5. Keep skin clean and dry 6. Alternate a full bath with partial baths for elderly 7. Encourage use of lotion/moisturizer on skin 8. Monitor patient's hygiene practices 9. Float heels 10. Collaborate with interdisciplinary team and initiate plans and interventions as needed Outcome: Progressing Note: Evaluation of progress towards goal: No signs of injury during shift. Goal: Patient's nutritional intake is adequate Description: Patient's goal is: INTERVENTIONS 1. Assess and monitor food intake and supplements, patient food preferences, nausea, vomiting, labs, oral cavity (gums, teeth, tongue, mucosa), proper denture fit, and cultural beliefs 2. Monitor for signs of hypoglycemia and hyperglycemia 3. Collaborate with interdisciplinary team and initiate plan and interventions as ordered 4. Monitor patient's weight 5. Assist patient with meals/food selection 6. Assist patient with eating 7. Allow adequate time for meals 8. Provide pleasant environment during mealtime 9. Increase social contact during mealtimes 10. Plan activities to conserve energy 11. Encourage/perform oral hygiene as appropriate 12. Encourage patient to take dietary supplement as ordered 13. Collaborate with clinical title coordinator 14. Include patient/ patient's merchandiser retail representative in decisions related to nutrition Outcome: Progressing Note: Evaluation of progress towards goal: Patient tolerated adequate intake during shift. Problem: Potential for Inadequate Tissue Perfusion - Venous Goal: Tissue perfusion is adequate - venous Description: Patient's goal is: INTERVENTIONS 1. Assess and monitor skin color and temperature, skin integrity, pulses, capillary refill, edema, pain in extremities and Homans' sign 2. Monitor for signs and symptoms (dyspnea, tachypnea, and tachycardia) 3. Encourage ambulation/activity per patient's tolerance and physician order 4. Elevate feet when in chair 5. Encourage patient to do ankle pump exercises 6. Apply anti-embolism stockings/devices as ordered Outcome: Progressing Note: Evaluation of progress towards goal: Tissue perfusion at baseline during shift. Problem: Self Care Deficit Goal: Return ADL status to a safe level of function Description: Patient's goal is: INTERVENTIONS 1. Administer medication as ordered 2. Assess ADL deficits and provide assistive devices as needed 3. Obtain PT/OT consults as needed 4. Assist and instruct patient to increase activity and self care as tolerated Outcome: Progressing Note: Evaluation of progress towards goal: ADL status at baseline during shift. Problem: Moderate - High Risk Fall Score Description: Beal Fall Score of =/> 25 or indicated by [facility] Assessment Goal: Patient should be free from fall Description: Interventions: 1. [place] to environment 2. Hourly rounds addressing the 4 P's (Pain, Positioning, Possessions, Potty) 3. Clear area of hazards (spills, clutter, electrical cords, unnecessary equipment) 4. Place equipment (bed & TV controls, call light, phone, urinal) within reach 5. Encourage patient to wear glasses and hearing aides as appropriate 6. Maintain bed in lowest position 7. Lock wheels on bed/wheelchair 8. Provide adequate lighting, including night light 9. Assess need for additional bedding, food/fluids, pain med's prior to sleep/routinely 10. Provide gripper slippers or personal non-skid footwear 11. Teach patient and patient merchandiser retail representative to maintain environment for safety and engage in all aspects of fall prevention program 12. Remind patient to call for help before getting out of bed 13. Initiate bed/chair/exit alarms supportive devices as appropriate, (chair wedge, no-skid floor mat, raised edge mattress, hip protectors) 14. Locate patient bed assignment for optimal visualization 15. Evaluate and identify Safe Patient Handling Equipment needs 16. Provide supervision when out of bed or chair 17. Utilize gait belt as needed to assist with ambulation 18. Place adaptive equipment (cane, walker) within reach 19. Request patient merchandiser retail representative bring adaptive equipment/mobility aids from home or obtain and provide as needed 20. Consult pharmacy regarding effects of med's affecting mobility, cognition, and alternatives 21. Obtain physician order for PT if risk factors associated with mobility are present 22. Obtain physician order for OT as appropriate 23. Utilize diversional activities 24. Educate patient and patient merchandiser retail representative how to maintain a safe environment during visitation times (notify nurse prior to leaving bedside) 25. Consider appropriateness of medical or non-medical reimbursement manager 26. Set up voiding schedule as appropriate (every 2 hours) Outcome: Progressing Note: Evaluation of progress towards goal: No signs of falls during shift. [facility] Narrative Inpatient Discharge Summary BRIEF OVERVIEW Admitting Provider: Jonathan Pizarro DO Discharge Provider: Jonathan Pizarro DO Primary Care Physician at Discharge: TUSHAR SOLANO JR, DO [phone] Admission Date: 10/12/2023 Discharge Date: No discharge date for patient encounter. Discharge Diagnosis NSTEMI s/p LHC on 10/14/2023 with occluded SVG to RCA CAD s/p CABG with CHURCH to LAD and SVG to RCA and PCI for ISR of the circumflex February 2013 Acute on chronic systolic heart failure Hypokalemia History of CVA Discharge Disposition Home Code Status at Discharge: Full Active Issues Requiring Follow-up Issue: Post hospitalization follow-up and transition of care Responsible Individual: PCP What is Needed: Follow-up Follow-up Appointments Arranged: No Issue: Heart failure, myocardial infarction Responsible Individual: [facility] What is Needed: Follow-up Follow-up Appointments Arranged: No Outpatient Follow-Up Future Appointments Date Time Provider Department Center 10/16/2023 1:30 PM Genet Small DO [facility] 11/13/2023 2:30 PM Bernice Davis MD [facility] Referrals and Follow-ups to Schedule No dressing needed [facility] - [facility] DETAILS OF HOSPITAL STAY Presenting Problem/History of Present Illness Decompensated heart failure (CMS-HCC) [I50.9] CHF (congestive heart failure) (CMS-HCC) [I50.9] NSTEMI (non-ST elevated myocardial infarction) (CMS-HCC) [I21.4] Hospital Course Patient is 67-year-old female with history of CAD s/p CABG with SVG to RCA, church to LAD in 2012, ischemic cardiomyopathy, HTN, CVA presented to an outside hospital with nausea and vomiting. Troponin was elevated with peak of 13. She underwent LHC on 10/14/2023 and found to have occluded SVG to RCA. Filling pressure was normal. GDMT optimization and patient will be discharged stable. Operative Procedures Performed Procedure(s): Coronary angiogram/lv/graft and right heart Physical Exam at Discharge Discharge Condition: good Pulse: 77 Resp: 23 BP: 121/78 Temp: 37 C (98.6 F) Weight: 68.6 kg (151 lb 3.8 oz) General appearance: Alert oriented and cooperative, in no acute distress Skin: Warm and dry to touch Head: Normocephalic, without obvious abnormality, atraumatic Eyes: Conjunctivae unremarkable, EOM's intact, sclera non icteric Neck: No JVD, No carotid bruit, neck supple, trachea midline Lungs: Clear to ausculation bilaterally, no use of accessory muscles. Heart: RRR with normal S1 and S2, no murmurs and no gallops Abdomen: Soft, non-tender, bowel sounds normal Extremities: No edema Neurologic: Oriented to time, person and place, affect appropriate, no focal/major motor or sensory defects noted Medication List START taking these medications Instructions Last Dose Given Next Dose Due bisoprolol 5 mg tablet Commonly known as: ZEBETA Start taking on: October 16, 2023 Take 1 tablet (5 mg total) by mouth in the morning. collagenase ointment Commonly known as: SANTYL Start taking on: October 16, 2023 Apply 1 Application topically in the morning. dapagliflozin propanediol 10 mg tablet Commonly known as: FARXIGA Start taking on: October 16, 2023 Take 1 tablet (10 mg total) by mouth in the morning. sacubitriL-valsartan 24-26 mg tablet Commonly known as: ENTRESTO Start taking on: October 16, 2023 Take 1 tablet by mouth in the morning and 1 tablet before bedtime. spironolactone 25 mg tablet Commonly known as: ALDACTONE Start taking on: October 16, 2023 Take 1 tablet (25 mg total) by mouth in the morning. CONTINUE taking these medications Instructions Last Dose Given Next Dose Due ascorbic acid (vitamin C) 1000 mg tablet Commonly known as: VITAMIN C Take 1 tablet (1,000 mg total) by mouth in the morning. aspirin 81 mg chewable tablet Chew 1 tablet (81 mg total) and swallow in the morning. azelastine 0.05 % ophthalmic solution Commonly known as: OPTIVAR 1 drop in the morning and 1 drop before bedtime. CALCIUM 500 ORAL Take 500 mg by mouth daily. calcium citrate 250 mg calcium tablet TAKE 2 TABLETS BY MOUTH EVERY DAY AT NOON cholecalciferol (vitamin D3) 125 mcg (5,000 unit) tablet,disintegrating 125 mcg daily. clopidogreL 75 mg tablet Commonly known as: PLAVIX Take 1 tablet (75 mg total) by mouth in the morning. DULoxetine 30 mg capsule Commonly known as: CYMBALTA Take 1 capsule (30 mg total) by mouth in the morning. famotidine 20 mg tablet Commonly known as: PEPCID Take 2 tablets (40 mg total) by mouth in the evening. ferrous sulfate 325 (65 FE) mg tablet Take 1 tablet (325 mg total) by mouth daily with breakfast. ibandronate 150 mg tablet Commonly known as: BONIVA Take 1 tablet (150 mg total) by mouth every 30 (thirty) days. Take in AM with glass of water prior to food, don't lie down for 60 minutes. ipratropium 21 mcg (0.03 %) nasal spray Commonly known as: ATROVENT as needed. liothyronine 5 MCG tablet Commonly known as: CYTOMEL Take 2 tablets (10 mcg total) by mouth in the morning. midodrine 5 mg tablet Commonly known as: PROAMATINE Take 1 tablet (5 mg total) by mouth 3 (three) times a day. prn montelukast 10 mg tablet Commonly known as: SINGULAIR Take 1 tablet (10 mg total) by mouth in the morning. multivitamin tablet Commonly known as: THERAGRAN Take 1 tablet by mouth in the morning. nitroglycerin 0.4 MG SL tablet Commonly known as: NITROSTAT Place 1 tablet (0.4 mg total) under the tongue every 5 (five) minutes as needed for chest pain. NURTEC ODT 75 mg tablet,disintegrating Generic drug: rimegepant Dissolve 75 mg on tongue in the morning. prn. ondansetron 4 mg tablet Commonly known as: ZOFRAN Take 1 tablet (4 mg total) by mouth every 8 (eight) hours as needed for nausea or vomiting. pantoprazole 40 mg EC tablet Commonly known as: PROTONIX Take 1 tablet (40 mg total) by mouth in the morning. 30 MINS BEFORE BREAKFAST. pregabalin 50 mg capsule Commonly known as: LYRICA Take 1 capsule (50 mg total) by mouth in the morning and 1 capsule (50 mg total) before bedtime. ranolazine 1,000 mg 12 hr tablet Commonly known as: RANEXA Take 1 tablet (1,000 mg total) by mouth in the morning and 1 tablet (1,000 mg total) before bedtime. rosuvastatin 20 mg tablet Commonly known as: CRESTOR Take 1 tablet (20 mg total) by mouth in the morning. sucralfate 1 gram tablet Commonly known as: CARAFATE Take 1 tablet (1 g total) by mouth in the morning and at bedtime. torsemide 20 mg tablet Commonly known as: DEMADEX Take 1 tablet (20 mg total) by mouth daily. prn traZODone 150 mg tablet Commonly known as: DESYREL Take 150 mg by mouth nightly. vitamin B-12 1000 MCG tablet Generic drug: cyanocobalamin Take 1 tablet (1,000 mcg total) by mouth in the morning. STOP taking these medications metoprolol succinate XL 25 mg 24 hr tablet Commonly known as: TOPROL XL Where to Get Your Medications These medications were sent to [facility]/pharmacy #[id number] - [place], [place] - [address] [facility], [place] [address] bisoprolol 5 mg tablet collagenase ointment dapagliflozin propanediol 10 mg tablet sacubitriL-valsartan 24-26 mg tablet spironolactone 25 mg tablet Kallie Roman MD PGY-3, Internal Medicine [facility] Associated attestation - Anup Reed MD - 10/15/2023 1:49 PM EDT The patient was admitted with episodes of nausea and vomiting. She is some fleeting chest pain on this. However, troponin was 13 on admission. Given this, she underwent diagnostic catheterization. The revealed an interval occlusion of her SVG to RCA. She was treated medically. Her filling pressures normal catheterization. Medications were adjusted. BP 121/78 Pulse 77 Temp 37 C (98.6 F) (Oral) Resp 23 Ht 157.5 cm (5' 2 ) Wt 68.6 kg (151 lb 3.8 oz) SpO2 90% BMI 27.66 kg/m RRR CTAB No edema Discharge diagnoses: 1. Non-STEMI with predominant symptoms of nausea and vomiting on presentation . Peak troponin 13 2. Coronary disease prior CABG with CHURCH to LAD and SVG to RCA and PCI for ISR of the circumflex 02/2013. Catheterization 10/14/23 with occluded SVG to RCA. 3. Acute on chronic heart systolic failure, filling pressure is normal at catheterization 4. Severe hypokalemia 5. History of CVA Optimizing medical therapy for cardiomyopathy Started on beta-siena with bisoprolol, will start on Entresto, continue Ranexa, start on SGLT2 inhibitor and continue spironolactone She was taking diuretics intermittently and will continue that Dual antiplatelet therapy with aspirin and Plavix Follow-up in the office in 1 week documented in this encounter [facility] 10-15-2023 Hospital Discharge instructions Kallie Roman MD - 10/15/2023 1:26 PM EDT Please call your doctor or visit the ED if you notice any chest pain, shortness of breath, cough, nausea, abdominal pain, or diarrhea Please take your medications as prescribed Please follow-up with your primary care physician in 1 week for transition of care. Please follow up with cardiology within one week of discharge documented in this encounter [facility] 10-15-2023 History of Present illness Narrative Images from the original note were not included. Progress Note Patient Name: Ashvin Rene : 1955 10/15/2023 12:52 PM I, Anup Reed MD, personally performed the face to face diagnostic evaluation on this patient. My findings are as follows below. If there is no associated CAROLYN/resident/fellow note, I evaluated the patient independently. SUBJECTIVE Ms. Rene has no chest pain, shortness of breath, orthopnea or palpitations. MEDS Current Meds: aspirin, 81 mg, oral, Daily bisoprolol, 5 mg, oral, Daily clopidogreL, 75 mg, oral, Daily collagenase, 1 Application, topical, Daily dapagliflozin propanediol, 10 mg, oral, Daily magnesium sulfate, 2,000 mg, intravenous, Once ranolazine, 1,000 mg, oral, BID rosuvastatin, 20 mg, oral, Daily sodium chloride, 3 mL, intravenous, Q12H spironolactone, 25 mg, oral, Daily valsartan, 40 mg, oral, Daily Continuous Infusions: dextrose 5 % in water, 100 mL/hr sodium chloride 0.9 %, 10 mL/hr sodium chloride 0.9 %, 10 mL/hr sodium chloride 0.9 %, 10 mL/hr OBJECTIVE Vital signs: BP 121/78 Pulse 77 Temp 37 C (98.6 F) (Oral) Resp 23 Ht 157.5 cm (5' 2 ) Wt 68.6 kg (151 lb 3.8 oz) SpO2 90% BMI 27.66 kg/m Admit Weight: 67.8 kg (149 lb 7.6 oz) Last 3 weights: Wt Readings from Last 3 Encounters: 10/14/23 68.6 kg (151 lb 3.8 oz) 05/19/23 65 kg (143 lb 6.4 oz) 03/05/23 63.1 kg (139 lb 3.2 oz) BMI: Body mass index is 27.66 kg/m . Input/Output: Intake/Output Summary (Last 24 hours) at 10/15/2023 1252 Last data filed at 10/15/2023 1200 Gross per 24 hour Intake 278.93 ml Output 1813 ml Net -1534.07 ml PHYSICAL EXAM Constiutional: In no acute distress. Cardiovascular: RRR, normal S1S2 Respiratory: Clear to Auscultation bilaterally Gastointestonal: Soft, NABS Extremities: no edema LABS CBC: Results from last 7 days Lab Units 10/15/2325310/14/2331310/13/23 0326 WBC X10E9/L 7.3 8.4 5.3 HEMOGLOBIN g/dL 12.7 12.7 12.5 13.2 HEMATOCRIT % 38.1 37.7 39.2 MCV fL 103* 104* 103* PLATELETS X10E9/L 229 219 207 176 BMP: Results from last 7 days Lab Units 10/15/2325310/14/2331310/13/23140810/13/23 0642 10/13/23 0326 POTASSIUM mmol/L 4.8 4.4 4.5 < > 3.4* CHLORIDE mmol/L 97* 100 -- -- 100 CO2 mmol/L 28 30 -- -- 30 BUN mg/dL 20 22 -- -- 16 CREATININE mg/dL 0.88 0.81 1.05* -- -- 0.79 < > = values in this interval not displayed. PT/INR: Results from last 7 days Lab Units 10/13/23 003 PROTIME sec 16.6* INR 1.4* MAG: Results from last 7 days Lab Units 10/15/2325310/14/2331310/13/23 032 MAGNESIUM mg/dL 1.8 1.8 1.1* Troponin I Results from last 7 days Lab Units 10/13/23 14010/13/23 0326 10/13/23 0037 TROPONIN I ng/mL 9.76* 13.09* 13.88* ASSESSMENT 1. Non-STEMI with predominant symptoms of nausea and vomiting on presentation . Peak troponin 13 2. Coronary disease prior CABG with CHURCH to LAD and SVG to RCA and PCI for ISR of the circumflex 02/2013. Catheterization 10/14/23 with occluded SVG to RCA. 3. Acute on chronic heart systolic failure, filling pressure is normal at catheterization 4. Severe hypokalemia 5. History of CVA PLAN Started on Farxiga, back on scheduled home torsemide regimen Continue Entresto which will switch from ARB Continue beta-siena Plan to the discharge later today Images from the original note were not included. INTERVENTIONAL CARDIOLOGY SUMMARY Ashvin Rene this is a 67-year-old female with a past medical history of CHF, ischemic cardiomyopathy, ASCVD with previous CABG x2 with CHURCH to LAD and SVG to RCA in 2014. She also went to [facility] and had orbital arthrectomy of the circumflex, PCI of the distal circumflex, PCI of the mid to distal circumflex was overlapping stents and PCI proximal circumflex in 2020. She then locally had HARRY to circumflex 02/15/2023, prior stent to the LAD in 2007, prior CVA hypotension on chronic midodrine. Patient initially presented to [facility] with generalized weakness and shortness of breath. She was found to have decompensated [place] [address] as well as high sensitivity troponin greater than 26,000. Potassium was profoundly low at 2.6. She was transferred to [facility] for further management. She had a repeat echo 10/13/2023 that revealed an EF of 20-25%, no significant valvular disease. Previous echocardiogram in 2022 revealed an EF of 35-40%. It was recommended patient undergo a cardiac catheterization for further evaluation. Cardiac catheterization completed 10/14/2023 revealed 1/2 patent bypass grafts. Patent CHURCH to LAD. PLAN Patient will return to her room. She will be on bedrest 2 hours postprocedure, Angio-Seal. Heparin drip has been stopped. Continue with aggressive medical management. Further plan per inpatient team. OBJECTIVE VITALS: Vitals: 10/14/23 0746 10/14/23 0843 10/14/23 0915 10/14/23 0930 BP: 146/89 136/82 147/81 (!) 150/91 Pulse: 98 93 92 94 Resp: (!) 29 20 13 15 Temp: 36.4 C (97.5 F) TempSrc: Oral SpO2: 93% 96% 98% 98% Weight: Height: CBC: Results from last 7 days Lab Units 10/14/2331310/13/2332510/13/23 0037 WBC X10E9/L 8.4 5.3 -- HEMOGLOBIN g/dL 12.5 13.2 12.8 HEMATOCRIT % 37.7 39.2 -- MCV fL 104* 103* -- PLATELETS X10E9/L 207 176 158 BMP: Results from last 7 days Lab Units 10/14/2331310/13/23 1409 10/13/23 0642 10/13/2332510/13/23 0037 SODIUM mmol/L 141 -- -- 143 145 POTASSIUM mmol/L 4.4 4.5 3.1* 3.4* 3.4* CHLORIDE mmol/L 100 -- -- 100 100 CO2 mmol/L 30 -- -- 30 30 BUN mg/dL 22 -- -- 16 16 CREATININE mg/dL 1.05* -- -- 0.79 0.88 CALCIUM mg/dL 7.4* -- -- 6.3* 6.5* MAGNESIUM mg/dL 1.8 -- -- 1.1* -- ECHO: Echo complete W/ contrast Result Date: 10/13/2023 Left Ventricle: Systolic function is severely decreased with an ejection fraction of 20-25%. Aortic Valve: There is trace regurgitation. There is no evidence of aortic valve stenosis. Mitral Valve: There is mild regurgitation. There is no evidence of mitral valve stenosis. Tricuspid Valve: There is trace regurgitation. There is no evidence of tricuspid valve stenosis. Echo complete W/O contrast Result Date: 01/22/2023 Left Ventricle: Systolic function is moderately decreased with an ejection fraction of 35-40%. Grade I diastolic dysfunction (impaired relaxation) is present. Lateral E' is 9.79 cm/s. Medial E' is 4.68 cm/s. Right Ventricle: Systolic function is mildly to moderately reduced. Abnormal tricuspid annular plane systolic excursion. Aortic Valve: The aortic valve is probable bicuspid with raphe- fusion of right and left cusps. There is mild sclerosis. There is mild regurgitation with eccentrically directed jet. There is no evidence of aortic valve stenosis. STRESS: No results found. CARDIAC CATH: Cardiac catheterization Result Date: 02/15/2023 High-grade ISR within previously placed stent in the distal circumflex and treatment with 3 x 12 drug-eluting stent post dilated with 3.5 by 12 noncompliant balloon Patent CHURCH to LAD however small caliber CHURCH, chronic finding Patent vein graft to the distal right coronary artery with severe degenerative disease possible thrombus . Distal right coronary artery has diffuse disease in small caliber vessel not amenable to percutaneous coronary intervention. Occluded LAD, occluded right coronary artery Recommendation Dual antiplatelet therapy including aspirin and Plavix plaque should be continued indefinitely given significant disease in [place] coronary arteries. Optimize medical therapy for coronary artery disease. Post percutaneous coronary intervention orders Remove sheath 2.5 hours after stopping Angiomax drip. Family updated Percutaneous coronary intervention Result Date: 02/15/2023 High-grade ISR within previously placed stent in the distal circumflex and treatment with 3 x 12 drug-eluting stent post dilated with 3.5 by 12 noncompliant balloon Patent CHURCH to LAD however small caliber CHURCH, chronic finding Patent vein graft to the distal right coronary artery with severe degenerative disease possible thrombus . Distal right coronary artery has diffuse disease in small caliber vessel not amenable to percutaneous coronary intervention. Occluded LAD, occluded right coronary artery Recommendation Dual antiplatelet therapy including aspirin and Plavix plaque should be continued indefinitely given significant disease in [place] coronary arteries. Optimize medical therapy for coronary artery disease. Post percutaneous coronary intervention orders Remove sheath 2.5 hours after stopping Angiomax drip. Family updated CHER Mccoy APRN-CNP 10/14/23 1001 Images from the original note were not included. [facility] CARDIOLOGY ACADEMIC SERVICE PROGRESS NOTE Ashvin Rene Ashvin Rene is a 67 y.o. 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, prior CVA who presented to OSH with weakness SOB and cough found to be in CHF with proBNP 82248, HS trop 11614, and K 2.1 which was repleted but not rechecked. She has had vomiting past 2 weeks but has been able to take her meds and eat intermittently. States she has had diarrhea for many years. In the past 2 weeks she has had 2 epsiodes of CP- one midsternal sharp episode and on episode of heaviness. She has had intermittent LE edema. She is requiring 2 L NC. CXR with concern for infiltrate and was given ATB but WBC 7 and lactate was not elevated. She was started on Heparin gtt and transferred to [facility]. She states she feels better now and denies CP SOB. SUBJECTIVE Pt is out for cardiac cath this morning. Vitals: 10/14/23 0400 10/14/23 0500 10/14/23 0600 10/14/23 0700 BP: 132/82 125/87 132/89 142/85 Pulse: 83 77 83 84 Resp: 15 (!) 27 Temp: TempSrc: SpO2: 96% 95% 97% 95% Weight: 68.6 kg (151 lb 3.8 oz) Height: Weight: Admission weight: 67.8 kg (149 lb 7.6 oz) Wt Readings from Last 3 Encounters: 10/14/23 68.6 kg (151 lb 3.8 oz) 05/19/23 65 kg (143 lb 6.4 oz) 03/05/23 63.1 kg (139 lb 3.2 oz) INTAKE/OUTPUT Intake/Output Summary (Last 24 hours) at 10/14/2023 0739 Last data filed at 10/14/2023 0649 Gross per 24 hour Intake 906.99 ml Output 2331 ml Net -1424.01 ml PHYSICAL EXAM General appearance: Alert oriented and cooperative, in no acute distress Skin: Warm and dry to touch Head: Normocephalic, without obvious abnormality, atraumatic Eyes: Conjunctivae unremarkable, EOM's intact, sclera non icteric Neck: No JVD, No carotid bruit, neck supple, trachea midline Lungs: Clear to ausculation bilaterally, no use of accessory muscles. Heart: RRR with normal S1 and S2, no murmurs and no gallops Abdomen: Soft, non-tender, bowel sounds normal Extremities: No edema Neurologic: Oriented to time, person and place, affect appropriate, no focal/major motor or sensory defects noted Psychiatric: Appropriate mood, memory and judgment LABS CBC: Results from last 7 days Lab Units 10/14/23 0314 10/13/23 0326 10/13/23 003 WBC X10E9/L 8.4 5.3 -- HEMOGLOBIN g/dL 12.5 13.2 12.8 HEMATOCRIT % 37.7 39.2 -- MCV fL 104* 103* -- PLATELETS X10E9/L 207 176 158 Coag: Results from last 7 days Lab Units 10/13/23 003 APTT sec 48* INR 1.4* CMP: Results from last 7 days Lab Units 10/14/2331310/13/23 1409 10/13/23 0642 10/13/2332510/13/23 003 SODIUM mmol/L 141 -- -- 143 145 POTASSIUM mmol/L 4.4 4.5 3.1* 3.4* 3.4* CHLORIDE mmol/L 100 -- -- 100 100 CO2 mmol/L 30 -- -- 30 30 BUN mg/dL 22 -- -- 16 16 CREATININE mg/dL 1.05* -- -- 0.79 0.88 CALCIUM mg/dL 7.4* -- -- 6.3* 6.5* MAGNESIUM mg/dL 1.8 -- -- 1.1* -- Liver Panel: Invalid input(s): BILITOT , LABBILIRUBIN , TOTALBILIRUB , BILIRUB , BILIRUBIND D Dimer: Troponin I Results from last 7 days Lab Units 10/13/23 1409 10/13/236 10/13/23 003 TROPONIN I ng/mL 9.76* 13.09* 13.88* ProBNP Results from last 7 days Lab Units 10/13/23325 BNP pg/mL 1,101* Lipid Panel: Lab Results Component Value Date CHOL 101 (L) 02/15/2023 TRIG 98 02/15/2023 HDL 54 02/15/2023 HgA1C: Lab Results Component Value Date HGBA1C 5.6 09/05/2014 ABG: Telemetry: sinus EKG: No results found. LAST ECHO (Within 2 Years) Echo complete W/O contrast Result Date: 01/22/2023 Left Ventricle: Systolic function is moderately decreased with an ejection fraction of 35-40%. Grade I diastolic dysfunction (impaired relaxation) is present. Lateral E' is 9.79 cm/s. Medial E' is 4.68 cm/s. Right Ventricle: Systolic function is mildly to moderately reduced. Abnormal tricuspid annular plane systolic excursion. Aortic Valve: The aortic valve is probable bicuspid with raphe- fusion of right and left cusps. There is mild sclerosis. There is mild regurgitation with eccentrically directed jet. There is no evidence of aortic valve stenosis. LAST STRESS (Within 2 Years) No results found. CATH: (Within 2 Years) Cardiac catheterization Result Date: 02/15/2023 High-grade ISR within previously placed stent in the distal circumflex and treatment with 3 x 12 drug-eluting stent post dilated with 3.5 by 12 noncompliant balloon Patent CHURCH to LAD however small caliber CHURCH, chronic finding Patent vein graft to the distal right coronary artery with severe degenerative disease possible thrombus . Distal right coronary artery has diffuse disease in small caliber vessel not amenable to percutaneous coronary intervention. Occluded LAD, occluded right coronary artery Recommendation Dual antiplatelet therapy including aspirin and Plavix plaque should be continued indefinitely given significant disease in [place] coronary arteries. Optimize medical therapy for coronary artery disease. Post percutaneous coronary intervention orders Remove sheath 2.5 hours after stopping Angiomax drip. Family updated Percutaneous coronary intervention Result Date: 02/15/2023 High-grade ISR within previously placed stent in the distal circumflex and treatment with 3 x 12 drug-eluting stent post dilated with 3.5 by 12 noncompliant balloon Patent CHURCH to LAD however small caliber CHURCH, chronic finding Patent vein graft to the distal right coronary artery with severe degenerative disease possible thrombus . Distal right coronary artery has diffuse disease in small caliber vessel not amenable to percutaneous coronary intervention. Occluded LAD, occluded right coronary artery Recommendation Dual antiplatelet therapy including aspirin and Plavix plaque should be continued indefinitely given significant disease in [place] coronary arteries. Optimize medical therapy for coronary artery disease. Post percutaneous coronary intervention orders Remove sheath 2.5 hours after stopping Angiomax drip. Family updated RADIOLOGY: Echo complete W/ contrast Result Date: 10/13/2023 Left Ventricle: Systolic function is severely decreased with an ejection fraction of 20-25%. Aortic Valve: There is trace regurgitation. There is no evidence of aortic valve stenosis. Mitral Valve: There is mild regurgitation. There is no evidence of mitral valve stenosis. Tricuspid Valve: There is trace regurgitation. There is no evidence of tricuspid valve stenosis. CULTURES: Microbiology Results No results found for the last 168 hours. CURRENT MEDICATIONS [SEP Hold] aspirin, 81 mg, oral, Daily [SEP Hold] clopidogreL, 75 mg, oral, Daily [SEP Hold] collagenase, 1 Application, topical, Daily [Sep] furosemide, 40 mg, intravenous, Q12H [Sep] magnesium sulfate, 2,000 mg, intravenous, Once [SEP Hold] metoprolol succinate XL, 25 mg, oral, Daily [Sep] ranolazine, 1,000 mg, oral, BID [Sep] rosuvastatin, 20 mg, oral, Daily [Sep] spironolactone, 25 mg, oral, Daily CONTINUOUS INFUSIONS [Sep] dextrose 5 % in water, 100 mL/hr [Sep] heparin, 300-3,500 Units/hr, Last Rate: 700 Units/hr (10/14/23 0649) [Sep] sodium chloride 0.9 %, 10 mL/hr [SEP Hold] sodium chloride 0.9 %, 10 mL/hr [SEP Hold] sodium chloride 0.9 %, 10 mL/hr NEEDED MEDICATIONS [Sep] acetaminophen aspirin [Sep] calcium gluconate OR [Sep] calcium gluconate OR [SEP Hold] calcium gluconate [SEP Hold] dextrose [SEP Hold] dextrose 5 % in water [SEP Hold] dextrose 50 % in water (D50W) [SEP Hold] predniSONE AND [Sep] diphenhydrAMINE [SEP Hold] glucagon (human recombinant) [SEP Hold] heparin (porcine) [SEP Hold] magnesium sulfate OR [Sep] magnesium sulfate [Sep] midodrine [Sep] potassium chloride OR [Sep] potassium chloride [SEP Hold] potassium chloride in water OR [Sep] potassium chloride in water [SEP Hold] sodium phosphate IV OR [SEP Hold] sodium phosphate IV - central line OR [Sep] sod phos di, mono-K phos mono [MAR Hold] sodium chloride 0.9 % [MAR Hold] sodium chloride 0.9 % [MAR Hold] sodium chloride 0.9 % Allergies: Allergies Allergen Reactions Metoprolol Other (See Comments) Patient feels like she is dying . I couldn't move, felt like I was having a stroke . Cefadroxil duricef Fenofibrate Micronized tricor Fluvoxamine luvox Nefazodone serzone Niacin Other reaction(s): Intolerance-unknown Atorvastatin Hives and Rash Codeine Hives, Rash and Hallucinations ASSESSMENT NSTEMI Coronary disease prior CABG, with HARRY 2. Acute on chronic systolic heart failure 3. Ischemic cardiomyopathy with an EF of 35-40%. 4. Hypokalemia, resolved 5. H/o CVA PLAN - CA cath done today, revealed 1/2 patent bypass grafts. Patent CHURCH to LAD - aspirin and Plavix - bisoprolol 5mg - continue ranexa - Continue rosuvastatin 20 mg - continue aldactone, added valsartan 40 mg - discontinue lasix 40mg BID(since pt is euvolemic) - ordered HbA1c - 4.8 - f/u on lipid profile - replace electrolytes as needed - will transfer pt to floors today - Luciano Tejeda MD Resident, PGY-1 10/14/23 7:39 AM [facility] CARDIOLOGY TEACHING SERVICE This note was completed using a voice agricultural purchasing agent system. Every effort was made to ensure accuracy. However, inadvertent computerized agricultural purchasing agent errors may be present. Associated attestation - Anup Reed MD - 10/14/2023 4:04 PM EDT Images from the original note were not included. Progress Note Patient Name: Ashvin Rene : 1955 10/14/2023 4:03 PM IAnup MD, personally performed the face to face diagnostic evaluation on this patient. My findings are as follows below. If there is no associated CAROLYN/resident/fellow note, I evaluated the patient independently. SUBJECTIVE Ms. Rene has no chest pain, shortness of breath, orthopnea or palpitations. No additional vomiting. MEDS Current Meds: aspirin, 81 mg, oral, Daily bisoprolol, 5 mg, oral, Daily clopidogreL, 75 mg, oral, Daily collagenase, 1 Application, topical, Daily magnesium sulfate, 2,000 mg, intravenous, Once ranolazine, 1,000 mg, oral, BID rosuvastatin, 20 mg, oral, Daily sodium chloride, 3 mL, intravenous, Q12H spironolactone, 25 mg, oral, Daily valsartan, 40 mg, oral, Daily Continuous Infusions: dextrose 5 % in water, 100 mL/hr sodium chloride 0.9 %, 10 mL/hr sodium chloride 0.9 %, 10 mL/hr sodium chloride 0.9 %, 10 mL/hr OBJECTIVE Vital signs: BP 121/73 Pulse 76 Temp 36.4 C (97.5 F) (Oral) Resp 25 Ht 157.5 cm (5' 2 ) Wt 68.6 kg (151 lb 3.8 oz) SpO2 98% BMI 27.66 kg/m Admit Weight: 67.8 kg (149 lb 7.6 oz) Last 3 weights: Wt Readings from Last 3 Encounters: 10/14/23 68.6 kg (151 lb 3.8 oz) 05/19/23 65 kg (143 lb 6.4 oz) 03/05/23 63.1 kg (139 lb 3.2 oz) BMI: Body mass index is 27.66 kg/m . Input/Output: Intake/Output Summary (Last 24 hours) at 10/14/2023 1603 Last data filed at 10/14/2023 1500 Gross per 24 hour Intake 656.99 ml Output 3628 ml Net -2971.01 ml PHYSICAL EXAM Cardiovascular: RRR, normal S1S2 Respiratory: Clear to Auscultation bilaterally Gastointestonal: Soft, NABS Extremities: no edema Psychiatric: Appropriate mood and affect. Awake, alert and oriented x 3. LABS CBC: Results from last 7 days Lab Units 10/14/23 0314 10/13/23 0326 10/13/23 0037 WBC X10E9/L 8.4 5.3 -- HEMOGLOBIN g/dL 12.5 13.2 12.8 HEMATOCRIT % 37.7 39.2 -- MCV fL 104* 103* -- PLATELETS X10E9/L 207 176 158 BMP: Results from last 7 days Lab Units 10/14/23 0314 10/13/23 1409 10/13/23 0642 10/13/23 0326 10/13/23 0037 POTASSIUM mmol/L 4.4 4.5 3.1* 3.4* 3.4* CHLORIDE mmol/L 100 -- -- 100 100 CO2 mmol/L 30 -- -- 30 30 BUN mg/dL 22 -- -- 16 16 CREATININE mg/dL 1.05* -- -- 0.79 0.88 PT/INR: Results from last 7 days Lab Units 10/13/23 0037 PROTIME sec 16.6* INR 1.4* MAG: Results from last 7 days Lab Units 10/14/23 0314 10/13/23 032 MAGNESIUM mg/dL 1.8 1.1* Troponin I Results from last 7 days Lab Units 10/13/23 1409 10/13/23 0326 10/13/237 TROPONIN I ng/mL 9.76* 13.09* 13.88* ASSESSMENT 1. Non-STEMI with predominant symptoms of nausea and vomiting on presentation . Peak troponin 13 2. Coronary disease prior CABG with CHURCH to LAD and SVG to RCA and PCI for ISR of the circumflex 02/2013. Catheterization 10/14/23 with occluded SVG to RCA. 3. Acute on chronic heart systolic failure, filling pressure is normal at catheterization 4. Severe hypokalemia 5. History of CVA Crit care 10 30-1105 a.m. PM evaluating for non-STEMI acute on chronic systolic heart failure PLAN Try bisoprolol as well as ARB, continue spironolactone, was on midodrine previously In the next few days consider SGLT2 inhibitor Continue Ranexa Monitor in ICU, underwent catheterization the same Images from the original note were not included. Progress Note Patient Name: Ashvin Rene : 1955 10/13/2023 3:54 PM I, Anup Reed MD, personally performed the face to face diagnostic evaluation on this patient. My findings are as follows below. If there is no associated CAROLYN/resident/fellow note, I evaluated the patient independently. SUBJECTIVE Ms. Rene has no chest pain, shortness of breath, orthopnea or palpitations. MEDS Current Meds: aspirin, 81 mg, oral, Daily clopidogreL, 75 mg, oral, Daily collagenase, 1 Application, topical, Daily furosemide, 40 mg, oral, BID AC magnesium sulfate, 2,000 mg, intravenous, Once ranolazine, 1,000 mg, oral, BID rosuvastatin, 20 mg, oral, Daily spironolactone, 25 mg, oral, Daily Continuous Infusions: dextrose 5 % in water, 100 mL/hr heparin, 300-3,500 Units/hr, Last Rate: 750 Units/hr (10/13/23 0822) sodium chloride 0.9 %, 10 mL/hr sodium chloride 0.9 %, 10 mL/hr sodium chloride 0.9 %, 10 mL/hr OBJECTIVE Vital signs: BP 111/82 Pulse 98 Temp 36.5 C (97.7 F) (Oral) Resp 20 Ht 157.5 cm (5' 2 ) Wt 67.8 kg (149 lb 7.6 oz) SpO2 96% BMI 27.34 kg/m Admit Weight: 67.8 kg (149 lb 7.6 oz) Last 3 weights: Wt Readings from Last 3 Encounters: 10/13/23 67.8 kg (149 lb 7.6 oz) 05/19/23 65 kg (143 lb 6.4 oz) 03/05/23 63.1 kg (139 lb 3.2 oz) BMI: Body mass index is 27.34 kg/m . Input/Output: Intake/Output Summary (Last 24 hours) at 10/13/2023 1554 Last data filed at 10/13/2023 1400 Gross per 24 hour Intake -- Output 793 ml Net -793 ml PHYSICAL EXAM Constiutional: In no acute distress. Cardiovascular: RRR, normal S1S2 Respiratory: Clear to Auscultation bilaterally Gastointestonal: Soft, NABS Extremities: no edema Psychiatric: Appropriate mood and affect. Awake, alert and oriented x 3. LABS CBC: Results from last 7 days Lab Units 10/13/23 0326 10/13/23 0037 WBC X10E9/L 5.3 -- HEMOGLOBIN g/dL 13.2 12.8 HEMATOCRIT % 39.2 -- MCV fL 103* -- PLATELETS X10E9/L 176 158 BMP: Results from last 7 days Lab Units 10/13/23 1409 10/13/23 0642 10/13/23 0326 10/13/2336 POTASSIUM mmol/L 4.5 3.1* 3.4* 3.4* CHLORIDE mmol/L -- -- 100 100 CO2 mmol/L -- -- 30 30 BUN mg/dL -- -- 16 16 CREATININE mg/dL -- -- 0.79 0.88 PT/INR: Results from last 7 days Lab Units 10/13/2336 PROTIME sec 16.6* INR 1.4* MAG: Results from last 7 days Lab Units 10/13/23325 MAGNESIUM mg/dL 1.1* Troponin I Results from last 7 days Lab Units 10/13/23 1409 10/13/23 0326 10/13/2336 TROPONIN I ng/mL 9.76* 13.09* 13.88* ASSESSMENT 1. Non-STEMI with predominant symptoms of nausea and vomiting on presentation 2. Coronary disease prior CABG with CHURCH to LAD and SVG to RCA which are small grafts and PCI for ISR of the circumflex 02/2013 3. Acute on chronic heart systolic failure 4. Severe hypokalemia 5. History of CVA Crit care 12-1235 PM evaluating for non-STEMI PLAN Advance diet and see how she tolerates Plan for diagnostic catheterization tomorrow Would like to make sure she is taking and tolerating pills before PCI is considered if needed. She is currently pain-free. Beta-siena and Aldactone, has chronic hypotension in his on midodrine, hold on afterload reduction/ARB/ARNI [facility] C[facility] ACADEMIC SERVICE PROGRESS NOTE Ashvin Johnsonan Berry Clinton is a 67 y.o. 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, prior CVA who presented to OSH with weakness SOB and cough found to be in CHF with proBNP 81580, HS trop 72880, and K 2.1 which was repleted but not rechecked. She has had vomiting past 2 weeks but has been able to take her meds and eat intermittently. States she has had diarrhea for many years. In the past 2 weeks she has had 2 epsiodes of CP- one midsternal sharp episode and on episode of heaviness. She has had intermittent LE edema. She is requiring 2 L NC. CXR with concern for infiltrate and was given ATB but WBC 7 and lactate was not elevated. She was started on Heparin gtt and transferred to [facility]. She states she feels better now and denies CP SOB. SUBJECTIVE Pt seen at the bedside , lying comfortable, denies complaints of chest pain or SOB. OBJECTIVE Vitals: Vitals: 10/13/23 1100 10/13/23 1121 10/13/23 1200 10/13/23 1300 BP: 123/86 141/88 (!) 135/94 Pulse: 102 104 101 Resp: Temp: 36.5 C (97.7 F) TempSrc: Oral SpO2: 95% 94% 96% Weight: Height: 157.5 cm (5' 2 ) Weight: Admission weight: 67.8 kg (149 lb 7.6 oz) Wt Readings from Last 3 Encounters: 10/13/23 67.8 kg (149 lb 7.6 oz) 05/19/23 65 kg (143 lb 6.4 oz) 03/05/23 63.1 kg (139 lb 3.2 oz) INTAKE/OUTPUT Intake/Output Summary (Last 24 hours) at 10/13/2023 1415 Last data filed at 10/13/2023 1300 Gross per 24 hour Intake -- Output 778 ml Net -778 ml PHYSICAL EXAM General appearance: Alert oriented and cooperative, in no acute distress Skin: Warm and dry to touch Head: Normocephalic, without obvious abnormality, atraumatic Eyes: Conjunctivae unremarkable, EOM's intact, sclera non icteric Neck: No JVD, No carotid bruit, neck supple, trachea midline Lungs: Clear to ausculation bilaterally, no use of accessory muscles. Heart: RRR with normal S1 and S2, no murmurs and no gallops Abdomen: Soft, non-tender, bowel sounds normal Extremities: No edema Neurologic: Oriented to time, person and place, affect appropriate, no focal/major motor or sensory defects noted Psychiatric: Appropriate mood, memory and judgment LABS CBC: Results from last 7 days Lab Units 10/13/23 0326 10/13/23 0037 WBC X10E9/L 5.3 -- HEMOGLOBIN g/dL 13.2 12.8 HEMATOCRIT % 39.2 -- MCV fL 103* -- PLATELETS X10E9/L 176 158 Coag: Results from last 7 days Lab Units 10/13/23 0037 APTT sec 48* INR 1.4* CMP: Results from last 7 days Lab Units 10/13/23 0642 10/13/23 0326 10/13/23 0037 SODIUM mmol/L -- 143 145 POTASSIUM mmol/L 3.1* 3.4* 3.4* CHLORIDE mmol/L -- 100 100 CO2 mmol/L -- 30 30 BUN mg/dL -- 16 16 CREATININE mg/dL -- 0.79 0.88 CALCIUM mg/dL -- 6.3* 6.5* MAGNESIUM mg/dL -- 1.1* -- Liver Panel: Invalid input(s): BILITOT , LABBILIRUBIN , TOTALBILIRUB , BILIRUB , BILIRUBIND D Dimer: Troponin I Results from last 7 days Lab Units 10/13/23 0326 10/13/23 0037 TROPONIN I ng/mL 13.09* 13.88* ProBNP Results from last 7 days Lab Units 10/13/23 0326 BNP pg/mL 1,101* Lipid Panel: Lab Results Component Value Date CHOL 101 (L) 02/15/2023 TRIG 98 02/15/2023 HDL 54 02/15/2023 HgA1C: Lab Results Component Value Date HGBA1C 5.6 09/05/2014 ABG: Telemetry: sinus EKG: No results found. LAST ECHO (Within 2 Years) Echo complete W/O contrast Result Date: 01/22/2023 Left Ventricle: Systolic function is moderately decreased with an ejection fraction of 35-40%. Grade I diastolic dysfunction (impaired relaxation) is present. Lateral E' is 9.79 cm/s. Medial E' is 4.68 cm/s. Right Ventricle: Systolic function is mildly to moderately reduced. Abnormal tricuspid annular plane systolic excursion. Aortic Valve: The aortic valve is probable bicuspid with raphe- fusion of right and left cusps. There is mild sclerosis. There is mild regurgitation with eccentrically directed jet. There is no evidence of aortic valve stenosis. LAST STRESS (Within 2 Years) No results found. CATH: (Within 2 Years) Cardiac catheterization Result Date: 02/15/2023 High-grade ISR within previously placed stent in the distal circumflex and treatment with 3 x 12 drug-eluting stent post dilated with 3.5 by 12 noncompliant balloon Patent CHURCH to LAD however small caliber CHURCH, chronic finding Patent vein graft to the distal right coronary artery with severe degenerative disease possible thrombus . Distal right coronary artery has diffuse disease in small caliber vessel not amenable to percutaneous coronary intervention. Occluded LAD, occluded right coronary artery Recommendation Dual antiplatelet therapy including aspirin and Plavix plaque should be continued indefinitely given significant disease in [place] coronary arteries. Optimize medical therapy for coronary artery disease. Post percutaneous coronary intervention orders Remove sheath 2.5 hours after stopping Angiomax drip. Family updated Percutaneous coronary intervention Result Date: 02/15/2023 High-grade ISR within previously placed stent in the distal circumflex and treatment with 3 x 12 drug-eluting stent post dilated with 3.5 by 12 noncompliant balloon Patent CHURCH to LAD however small caliber CHURCH, chronic finding Patent vein graft to the distal right coronary artery with severe degenerative disease possible thrombus . Distal right coronary artery has diffuse disease in small caliber vessel not amenable to percutaneous coronary intervention. Occluded LAD, occluded right coronary artery Recommendation Dual antiplatelet therapy including aspirin and Plavix plaque should be continued indefinitely given significant disease in [place] coronary arteries. Optimize medical therapy for coronary artery disease. Post percutaneous coronary intervention orders Remove sheath 2.5 hours after stopping Angiomax drip. Family updated RADIOLOGY: No results found. CULTURES: Microbiology Results No results found for the last 168 hours. CURRENT MEDICATIONS aspirin, 81 mg, oral, Daily clopidogreL, 75 mg, oral, Daily furosemide, 40 mg, oral, BID AC magnesium sulfate, 2,000 mg, intravenous, Once ranolazine, 1,000 mg, oral, BID rosuvastatin, 20 mg, oral, Daily spironolactone, 25 mg, oral, Daily CONTINUOUS INFUSIONS dextrose 5 % in water, 100 mL/hr heparin, 300-3,500 Units/hr, Last Rate: 750 Units/hr (10/13/23821) sodium chloride 0.9 %, 10 mL/hr sodium chloride 0.9 %, 10 mL/hr sodium chloride 0.9 %, 10 mL/hr NEEDED MEDICATIONS acetaminophen calcium gluconate OR calcium gluconate OR calcium gluconate dextrose dextrose 5 % in water dextrose 50 % in water (D50W) predniSONE AND diphenhydrAMINE glucagon (human recombinant) heparin (porcine) magnesium sulfate OR magnesium sulfate midodrine perflutren lipid microspheres (DEFINITY) dilution injection 1.43 mg/10 mL potassium chloride OR potassium chloride potassium chloride in water OR potassium chloride in water sodium phosphate IV OR sodium phosphate IV - central line OR sod phos di, mono-K phos mono sodium chloride sodium chloride 0.9 % sodium chloride 0.9 % sodium chloride 0.9 % Allergies: Allergies Allergen Reactions Metoprolol Other (See Comments) Patient feels like she is dying . I couldn't move, felt like I was having a stroke . Cefadroxil duricef Fenofibrate Micronized tricor Fluvoxamine luvox Nefazodone serzone Niacin Other reaction(s): Intolerance-unknown Atorvastatin Hives and Rash Codeine Hives, Rash and Hallucinations ASSESSMENT NSTEMI 2. Acute on chronic heart failure 3.Ischemic cardiomyopathy with an EF of 35-40% Atherosclerotic heart disease of the [place] coronary arteries with stable angina pectoris History of CABG and subsequent HARRY Profound hypokalemia 2.1 in the ER at [facility] receiving replacements PLAN - plan for diagnostic cath tomorrow - aspirin and Plavix - replace potassium - continue ranexa - Continue rosuvastatin 20 mg - continue aldactone -advance diet as tolerated - Luciano Tejeda MD Resident, PGY-1 10/13/23 4:08 PM [facility] TEACHING SERVICE This note was completed using a voice agricultural purchasing agent system. Every effort was made to ensure accuracy. However, inadvertent computerized agricultural purchasing agent errors may be present. Associated attestation - Anup Reed MD - 10/13/2023 4:47 PM EDT See my separate note documented in this encounter [facility] 10-15-2023 Note XR CHEST 1 VW Procedure: Chest x-ray performed Number of views:AP view History:Hypoxia Comparison:10/12/2023 Findings: The heart and mediastinal silhouette are stable. There is pulmonary vascular congestion. There are no focal consolidations. There is a small left pleural effusion. There is no pneumothorax Impression: Pulmonary vascular congestion. Finalized by Kay Dunn DO on 10/15/2023 10:48 AM [facility] 10-15-2023 Note Procedure: Chest x-ray performed Number of views:AP view History:Hypoxia Comparison:10/12/2023 Findings: The heart and mediastinal silhouette are stable. There is pulmonary vascular congestion. There are no focal consolidations. There is a small left pleural effusion. There is no pneumothorax Impression: Pulmonary vascular congestion. Finalized by Kay Dunn DO on 10/15/2023 10:48 AM [facility] 10-14-2023 Plan of care note Problem: Pain Goal: Patient goal is pain score less than 4, able to rest, and participant in treatment plan as appropriate Description: INTERVENTIONS: 1. Encourage patient or legal merchandiser retail representative to report early pain and ask for pain medicine when needed 2. Assess pain using appropriate pain scale and include the scale used when documenting 3. Administer analgesics based on type and severity of pain and evaluate response within appropriate time frame 4. Implement non-pharmacological measures as appropriate and evaluate response 5. Consider cultural and social influences on pain and pain management 6. Notify LIP if interventions ineffective or patient reports new pain 7. Monitor vital signs including pulse ox, end-tidal CO2 based on pain intervention 8. Reassess pain per policy 9. Teach patient or legal merchandiser retail representative interventions for comforting Outcome: Progressing Note: Evaluation of progress towards goal: Verbalizes adequate pain scores during shift. Problem: Safety Goal: Patient will be injury free during hospitalization Description: INTERVENTIONS: 1. Assess patient's risk for falls and implement fall prevention plan of care per policy 2. Provide and maintain a safe environment 3. Proper use of double Identifiers 4. Medication administration using the 5 rights 5. Hand hygiene 6. Specimens are labeled at the bedside 7. Instruct patient/ patient merchandiser retail representative about use of safety devices 8. Include patient/ patient merchandiser retail representative in decisions related to safety Outcome: Progressing Note: Evaluation of progress towards goal: Pt remains injury free during shift. Problem: Infection Goal: Absence of infection during hospitalization Description: Interventions: 1. Assess and monitor for signs and symptoms of infection 2. Monitor lab/diagnostic results 3. Monitor all insertion sites i.e., indwelling lines, tubes and drains 4. Monitor endotracheal (as able) and nasal secretions for changes in amount and color 5. Administer medications as ordered 6. Instruct and encourage patient and family to use good hand hygiene technique 7. Identify and instruct patient/patient merchandiser retail representative in use of appropriate isolation precautions for identified infection/symptoms 8. Provide and discuss with patient/patient merchandiser retail representative on educational MDRO sheet 9. Encourage and monitor nutritional status daily and consult title coordinator if indicated 10. Implement neutropenic guidelines as needed 11. Review exposure to history of communicable disease and recent travel history on admission 12. Encourage annual influenza vaccine 13. Encourage pneumonia vaccine Outcome: Progressing Note: Evaluation of progress towards goal: Pt afebrile and no outward signs of infection during shift. Problem: Knowledge Deficit Goal: Patient/patient merchandiser retail representative demonstrates understanding of disease process, treatment plan, medications, and discharge instructions Description: INTERVENTIONS 1. Complete learning assessment and assess knowledge base 2. Provide teaching at level of understanding 3. Provide teaching via preferred learning method(s) Outcome: Progressing Note: Evaluation of progress towards goal: Education regarding treatment plan occurring throughout admission. Problem: Discharge Planning Goal: Discharge to post-acute care, other facility, or home with appropriate resources Description: Patient's goal is: INTERVENTIONS 1. Conduct assessment to determine patient/family and health care team treatment goals, and need for post-acute services based on payer coverage, community resources, and patient preferences, and barriers to discharge 2. Coordinate with Social work, Care Navigation, and Utilization Review to arrange appropriate level of services according to patient's needs based on patient preference and payer coverage in collaboration with the physician and health care team 3. Address psychosocial, clinical, and financial barriers to discharge as identified in assessment in conjunction with the patient/family and health care team 4. Consult appropriate ancillary services (i.e.. PT/OT/ST, etc) as needed 5. Communicate with and update the patient/family, physician, and health care team regarding progress on the discharge plan 6. Identify discharge learning needs (meds, wound care, etc). 7. Arrange for needed discharge transportation as appropriate Outcome: Progressing Note: Evaluation of progress towards goal: Discharge planning in process during admission. Problem: Neurological Deficit Goal: Neurological status is stable or improving Description: Patient's goal is: INTERVENTIONS 1. Complete Neurological assessment as indicated/ordered 2. Initiate measures to prevent increased intracranial pressure 3. Monitor and assess patient's level of consciousness, motor function, sensory function, and level of assistance needed for ADLs 4. Monitor and report changes from baseline 5. Maintain blood pressure and fluid volume within ordered parameters to optimize cerebral perfusion and minimize risk of hemorrhage 6. Monitor labs and diagnostic tests 7. Administer anti-seizure medications as ordered 8. Maintain airway, patient safety and administer oxygen as ordered 9. Monitor patient for seizure activity, document and report duration and description of seizure to LIP 10. If seizure occurs, turn patient to side and suction secretions as needed 11. Reorient patient post seizure 12. Seizure pads on all 4 side rails 13. Instruct patient/family to notify RN of any seizure activity 14. Instruct patient/family to call for assistance with activity based on assessment 15. Utilize bleeding precautions if thrombolytic given Outcome: Progressing Note: Evaluation of progress towards goal: Neurologically stable during shift. Problem: Activity Intolerance/Impaired Mobility Goal: Mobility/activity is maintained at optimum level for patient Description: Patient's goal is: INTERVENTIONS 1. Assess and monitor patient barriers to mobility and need for assistive/adaptive devices 2. Assess patient's emotional response to limitations 3. Collaborate with interdisciplinary teams and initiate plans and interventions as ordered 4. Encourage independent activity per tolerance 5. Maintain proper body alignment 6. Perform active/passive ROM as tolerated/ordered 7. Coordinate activities to conserve energy 8. Reposition patient 9. Ensure adequate rest/sleep time Outcome: Progressing Note: Evaluation of progress towards goal: Mobility at baseline during shift. Problem: Communication Impairment Goal: Ability to express needs and understand communication Description: INTERVENTIONS 1. Assess patient's communication skills and ability to understand information 2. Provide alternate method of communication if needed i.e. ipad, sign board, pen/paper 3. Collaborate with Speech Therapy to develop effective communication strategies 4. Include patient/patient merchandiser retail representative in decisions related to communication Outcome: Progressing Note: Evaluation of progress towards goal: Communication at baseline during shift. Problem: Potential for Aspiration Goal: Patient's risk of aspiration is minimized Description: INTERVENTIONS 1. Assess and monitor vital signs, respiratory status, and labs (WBC) 2. Monitor for signs of aspiration (tachypnea, cough, rales, wheezing, cyanosis, fever) 3. Assess and monitor patient's ability to swallow 4. Place patient up in chair to eat if possible 5. Elevate head of bed 90 degrees to eat if unable to get patient up into chair 6. Supervise patient during oral intake 7. Instruct patient to take small bites 8. Instruct patient to take small single sips when taking liquids 9. Follow patient-specific strategies generated by speech pathologist 10. Complete bedside swallow screen if appropriate and take actions as indicated. 11. Administer prescribed medications and monitor effects Outcome: Progressing Note: Evaluation of progress towards goal: Aspiration avoided during shift. Problem: Anxiety Goal: Anxiety is at manageable level Description: Patient's goal is: INTERVENTIONS 1. Assess and monitor patient's anxiety level 2. Monitor for signs and symptoms of anxiety both physical and emotional (heart palpitations, chest pain, shortness of breath, headaches, nausea, feeling jumpy, restlessness, irritable, apprehensive) 3. Reorient/orient patient to unit/surroundings 4. Explain treatment plan 5. Explain tests/procedures prior to initiation 6. Encourage participation in care 7. Encourage verbalization of concerns/fears 8. Assess coping mechanisms 9. Assist in developing anxiety-reducing skills 10. Administer complimentary therapies 11. Manage patient's environment 12. Limit or eliminate stimulants such as caffeine and nicotine 13. Collaborate with ancillary departments 14. Include patient/patient merchandiser retail representative in decisions related to anxiety Outcome: Progressing Note: Evaluation of progress towards goal: Anxiety at baseline during shift. Problem: Inadequate Coping Goal: Demonstrates and verbalizes ability to cope effectively Description: Patient's goal is: INTERVENTIONS 1. Patient is able to verbalize feelings related to emotional state 2. Encourage verbalization of feelings, perceptions, fears, stressors, loss of loved ones 3. Encourage verbalization of problems out of their control 4. Encourage participation in care and self management 5. Inform patient of all treatment/care prior to providing care 6. Collaborate with pastoral/spiritual care, clinical social work therapist, mental health counselor as needed. 7. Instruct patient on diversional activities such as physical activity, distraction, and deep breathing exercises to assist with coping 8. Involve patient's merchandiser retail representative in care Outcome: Progressing Note: Evaluation of progress towards goal: Coping at baseline during shift. Problem: Potential for Compromised Skin Integrity Goal: Skin integrity is maintained or improved Description: Patient's goal is: INTERVENTIONS 1. Perform initial skin assessment on admission and as needed 2. Turn patient every 2 hours and PRN 3. Relieve pressure to bony prominences 4. Avoid shearing 5. Keep skin clean and dry 6. Alternate a full bath with partial baths for elderly 7. Encourage use of lotion/moisturizer on skin 8. Monitor patient's hygiene practices 9. Float heels 10. Collaborate with interdisciplinary team and initiate plans and interventions as needed Outcome: Progressing Note: Evaluation of progress towards goal: No signs of injury during shift. Goal: Patient's nutritional intake is adequate Description: Patient's goal is: INTERVENTIONS 1. Assess and monitor food intake and supplements, patient food preferences, nausea, vomiting, labs, oral cavity (gums, teeth, tongue, mucosa), proper denture fit, and cultural beliefs 2. Monitor for signs of hypoglycemia and hyperglycemia 3. Collaborate with interdisciplinary team and initiate plan and interventions as ordered 4. Monitor patient's weight 5. Assist patient with meals/food selection 6. Assist patient with eating 7. Allow adequate time for meals 8. Provide pleasant environment during mealtime 9. Increase social contact during mealtimes 10. Plan activities to conserve energy 11. Encourage/perform oral hygiene as appropriate 12. Encourage patient to take dietary supplement as ordered 13. Collaborate with clinical title coordinator 14. Include patient/ patient's merchandiser retail representative in decisions related to nutrition Outcome: Progressing Note: Evaluation of progress towards goal: Patient tolerated adequate intake during shift. Problem: Potential for Inadequate Tissue Perfusion - Venous Goal: Tissue perfusion is adequate - venous Description: Patient's goal is: INTERVENTIONS 1. Assess and monitor skin color and temperature, skin integrity, pulses, capillary refill, edema, pain in extremities and Homans' sign 2. Monitor for signs and symptoms (dyspnea, tachypnea, and tachycardia) 3. Encourage ambulation/activity per patient's tolerance and physician order 4. Elevate feet when in chair 5. Encourage patient to do ankle pump exercises 6. Apply anti-embolism stockings/devices as ordered Outcome: Progressing Note: Evaluation of progress towards goal: Tissue perfusion adequate during shift. Problem: Self Care Deficit Goal: Return ADL status to a safe level of function Description: Patient's goal is: INTERVENTIONS 1. Administer medication as ordered 2. Assess ADL deficits and provide assistive devices as needed 3. Obtain PT/OT consults as needed 4. Assist and instruct patient to increase activity and self care as tolerated Outcome: Progressing Note: Evaluation of progress towards goal: ADL status at baseline during shift. Problem: Moderate - High Risk Fall Score Description: Beal Fall Score of =/> 25 or indicated by [facility] Assessment Goal: Patient should be free from fall Description: Interventions: 1. [place] to environment 2. Hourly rounds addressing the 4 P's (Pain, Positioning, Possessions, Potty) 3. Clear area of hazards (spills, clutter, electrical cords, unnecessary equipment) 4. Place equipment (bed & TV controls, call light, phone, urinal) within reach 5. Encourage patient to wear glasses and hearing aides as appropriate 6. Maintain bed in lowest position 7. Lock wheels on bed/wheelchair 8. Provide adequate lighting, including night light 9. Assess need for additional bedding, food/fluids, pain med's prior to sleep/routinely 10. Provide gripper slippers or personal non-skid footwear 11. Teach patient and patient merchandiser retail representative to maintain environment for safety and engage in all aspects of fall prevention program 12. Remind patient to call for help before getting out of bed 13. Initiate bed/chair/exit alarms supportive devices as appropriate, (chair wedge, no-skid floor mat, raised edge mattress, hip protectors) 14. Locate patient bed assignment for optimal visualization 15. Evaluate and identify Safe Patient Handling Equipment needs 16. Provide supervision when out of bed or chair 17. Utilize gait belt as needed to assist with ambulation 18. Place adaptive equipment (cane, walker) within reach 19. Request patient merchandiser retail representative bring adaptive equipment/mobility aids from home or obtain and provide as needed 20. Consult pharmacy regarding effects of med's affecting mobility, cognition, and alternatives 21. Obtain physician order for PT if risk factors associated with mobility are present 22. Obtain physician order for OT as appropriate 23. Utilize diversional activities 24. Educate patient and patient merchandiser retail representative how to maintain a safe environment during visitation times (notify nurse prior to leaving bedside) 25. Consider appropriateness of medical or non-medical reimbursement manager 26. Set up voiding schedule as appropriate (every 2 hours) Outcome: Progressing Note: Evaluation of progress towards goal: No signs of falls during shift. [facility] 10-14-2023 Plan of care note Problem: Pain Goal: Patient goal is pain score less than 4, able to rest, and participant in treatment plan as appropriate Description: INTERVENTIONS: 1. Encourage patient or legal merchandiser retail representative to report early pain and ask for pain medicine when needed 2. Assess pain using appropriate pain scale and include the scale used when documenting 3. Administer analgesics based on type and severity of pain and evaluate response within appropriate time frame 4. Implement non-pharmacological measures as appropriate and evaluate response 5. Consider cultural and social influences on pain and pain management 6. Notify LIP if interventions ineffective or patient reports new pain 7. Monitor vital signs including pulse ox, end-tidal CO2 based on pain intervention 8. Reassess pain per policy 9. Teach patient or legal merchandiser retail representative interventions for comforting Outcome: Progressing Note: Evaluation of progress towards goal: Pt denies pain at this time. Problem: Safety Goal: Patient will be injury free during hospitalization Description: INTERVENTIONS: 1. Assess patient's risk for falls and implement fall prevention plan of care per policy 2. Provide and maintain a safe environment 3. Proper use of double Identifiers 4. Medication administration using the 5 rights 5. Hand hygiene 6. Specimens are labeled at the bedside 7. Instruct patient/ patient merchandiser retail representative about use of safety devices 8. Include patient/ patient merchandiser retail representative in decisions related to safety Outcome: Progressing Note: Evaluation of progress towards goal: Pt is free from injuries at this time. Problem: Infection Goal: Absence of infection during hospitalization Description: Interventions: 1. Assess and monitor for signs and symptoms of infection 2. Monitor lab/diagnostic results 3. Monitor all insertion sites i.e., indwelling lines, tubes and drains 4. Monitor endotracheal (as able) and nasal secretions for changes in amount and color 5. Administer medications as ordered 6. Instruct and encourage patient and family to use good hand hygiene technique 7. Identify and instruct patient/patient merchandiser retail representative in use of appropriate isolation precautions for identified infection/symptoms 8. Provide and discuss with patient/patient merchandiser retail representative on educational MDRO sheet 9. Encourage and monitor nutritional status daily and consult title coordinator if indicated 10. Implement neutropenic guidelines as needed 11. Review exposure to history of communicable disease and recent travel history on admission 12. Encourage annual influenza vaccine 13. Encourage pneumonia vaccine Outcome: Progressing Note: Evaluation of progress towards goal: Pt is afebrile at this time. Problem: Knowledge Deficit Goal: Patient/patient merchandiser retail representative demonstrates understanding of disease process, treatment plan, medications, and discharge instructions Description: INTERVENTIONS 1. Complete learning assessment and assess knowledge base 2. Provide teaching at level of understanding 3. Provide teaching via preferred learning method(s) Outcome: Progressing Note: Evaluation of progress towards goal: Pt updated on plan of care. Problem: Moderate - High Risk Fall Score Description: Beal Fall Score of =/> 25 or indicated by [facility] Assessment Goal: Patient should be free from fall Description: Interventions: 1. [place] to environment 2. Hourly rounds addressing the 4 P's (Pain, Positioning, Possessions, Potty) 3. Clear area of hazards (spills, clutter, electrical cords, unnecessary equipment) 4. Place equipment (bed & TV controls, call light, phone, urinal) within reach 5. Encourage patient to wear glasses and hearing aides as appropriate 6. Maintain bed in lowest position 7. Lock wheels on bed/wheelchair 8. Provide adequate lighting, including night light 9. Assess need for additional bedding, food/fluids, pain med's prior to sleep/routinely 10. Provide gripper slippers or personal non-skid footwear 11. Teach patient and patient merchandiser retail representative to maintain environment for safety and engage in all aspects of fall prevention program 12. Remind patient to call for help before getting out of bed 13. Initiate bed/chair/exit alarms supportive devices as appropriate, (chair wedge, no-skid floor mat, raised edge mattress, hip protectors) 14. Locate patient bed assignment for optimal visualization 15. Evaluate and identify Safe Patient Handling Equipment needs 16. Provide supervision when out of bed or chair 17. Utilize gait belt as needed to assist with ambulation 18. Place adaptive equipment (cane, walker) within reach 19. Request patient merchandiser retail representative bring adaptive equipment/mobility aids from home or obtain and provide as needed 20. Consult pharmacy regarding effects of med's affecting mobility, cognition, and alternatives 21. Obtain physician order for PT if risk factors associated with mobility are present 22. Obtain physician order for OT as appropriate 23. Utilize diversional activities 24. Educate patient and patient merchandiser retail representative how to maintain a safe environment during visitation times (notify nurse prior to leaving bedside) 25. Consider appropriateness of medical or non-medical reimbursement manager 26. Set up voiding schedule as appropriate (every 2 hours) Outcome: Progressing Note: Evaluation of progress towards goal: Pt is free from falls at this time. . [facility] 10-14-2023 Procedure note Pre Procedure Evaluation: H&P was reviewed and the patient was examined. No change has occurred in the patient's condition since the H&P was completed. 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 Visit: ACS > 24hrs Chest Pain Symptom Assessment: typical Cardiovascular Instability: No Heart Failure: Yes Congestive Heart Failure (NYHA Classification within 2 weeks): III Heart Failure Newly Diagnosed: No Heart Failure Type: Systolic Electrocardiac Assessment Method: None Stress Test Performed: No Cardiac CTA: No [facility] Clinical Frailty Scale (Assessment immediately prior to procedure): 6: Moderately Frail Cardiac Arrest Out of Hospital: No Cardiac Arrest at Transferring Facility: No [facility] 10-14-2023 Attending History and physical note HISTORY AND PHYSICAL INTERVAL NOTE: Ashvin Rene [id number] H&P reviewed. The patient was examined and there are no changes to the H&P. Alexi Freeman MD Source Note - Lenny Rodriguez MD - 10/12/2023 11:49 PM EDT Images from the original note were not included. [facility] [address] [place] [address] HISTORY & PHYSICAL / CONSULT NOTE Ashvin Rene PCP: TUSHAR SOLANO JR, DO Date of Admission: 10/12/2023 Date of Consultation: 10/12/2023 11:49 PM Consult for CHF SUBJECTIVE History of Present Illness: Ashvin Rene is a 67 y.o. 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, prior CVA who presented to OSH with weakness SOB and cough found to be in CHF with proBNP 10896, HS trop 20748, and K 2.1 which was repleted but not rechecked. She has had vomiting past 2 weeks but has been able to take her meds and eat intermittently. States she has had diarrhea for many years. In the past 2 weeks she has had 2 epsiodes of CP- one midsternal sharp episode and on episode of heaviness. She has had intermittent LE edema. She is requiring 2 L NC. CXR with concern for infiltrate and was given ATB but WBC 7 and lactate was not elevated. She was started on Heparin gtt and transferred to [facility]. She states she feels better now and denies CP SOB. Previous Medical History: Past Medical History: Diagnosis Date Angina pectoris ([facility]) Atherosclerosis of coronary artery bypass graft Atherosclerotic heart disease Coronary angioplasty status Coronary artery disease CVA (cerebral vascular accident) ([facility]) Dyspnea Hyperlipidemia Hypertension Hypotension Other chest pain Stroke ([facility]) Previous Surgical History: Past Surgical History: Procedure Laterality Date CARDIAC CATHETERIZATION Cardiac catheterization N/A 02/15/2023 Performed by Star Espinosa MD at [facility] CARDIAC CATH LABS Cardiac catheterization - LV cors w/graft check N/A 10/25/2020 Performed by Alexi Freeman MD at [facility] CARDIAC CATH LABS Coronary angiogram and graft/[place] N/A 02/15/2023 Performed by Star Espinosa MD at [facility] CARDIAC CATH LABS Coronary angiogram and left ventricular gram/pressure + graft/[place] N/A 10/25/2020 Performed by Alexi Freeman MD at [facility] CARDIAC CATH LABS Coronary angiogram and left ventricular gram/pressure + graft/[place] N/A 06/18/2016 Performed by Alexi Freeman MD at [facility] CARDIAC CATH LABS CORONARY ANGIOPLASTY 12/08/2020 orbital atherectomy and 2 HARRY to prox and distal Circ, at [facility] per Dr. Madhav Ugalde CORONARY ARTERY BYPASS GRAFT 09/08/2014 HYSTERECTOMY INSERTION LOOP RECORDER 05/24/2016 Percutaneous coronary angioplasty left circumflex N/A 02/15/2023 Performed by Star Espinosa MD at [facility] CARDIAC CATH LABS Stent drug-eluting left circumflex N/A 02/15/2023 Performed by Star Espinosa MD at [facility] CARDIAC CATH LABS Allergies: Allergies Allergen Reactions Aspirin-Dipyridamole aggronox Atorvastatin Hives lipitor Cefadroxil duricef Codeine Fenofibrate Micronized tricor Fluvoxamine luvox Nefazodone serzone Niacin Other reaction(s): Intolerance-unknown Hospital Meds: Current Facility-Administered Medications Medication Dose Route Frequency Provider Last Rate Last Admin calcium gluconate IVPB 1000 mg/50 mL (20 mg/mL premix) 1,000 mg intravenous PRN Parul Russ, INDEPENDENT LIVING INSTRUCTOR-AUDIO VISUAL PRODUCTION SPECIALIST Or calcium gluconate IVPB 2000 mg/100 mL (20 mg/mL premix) 2,000 mg intravenous PRN Parul Hassann, INDEPENDENT LIVING INSTRUCTOR-AUDIO VISUAL PRODUCTION SPECIALIST Or calcium gluconate 3,000 mg in sodium chloride 0.9 % 100 mL IVPB 3,000 mg intravenous PRN Parul Russ, INDEPENDENT LIVING INSTRUCTOR-AUDIO VISUAL PRODUCTION SPECIALIST dextrose (GLUTOSE) 40 % gel 15 g 15 g oral PRN Parul Russ, INDEPENDENT LIVING INSTRUCTOR-AUDIO VISUAL PRODUCTION SPECIALIST dextrose 5 % (D5W) infusion 100 mL/hr intravenous Continuous PRN Parul Russ, INDEPENDENT LIVING INSTRUCTOR-AUDIO VISUAL PRODUCTION SPECIALIST dextrose 50 % in water (D50W) 50% solution 25 mL 25 mL intravenous PRN Parul Russ, INDEPENDENT LIVING INSTRUCTOR-AUDIO VISUAL PRODUCTION SPECIALIST glucagon HCL injection 1 mg 1 mg intramuscular PRN Parul Russ, INDEPENDENT LIVING INSTRUCTOR-AUDIO VISUAL PRODUCTION SPECIALIST heparin (porcine) injection 2,000 Units 2,000 Units intravenous PRN Parul Russ, INDEPENDENT LIVING INSTRUCTOR-AUDIO VISUAL PRODUCTION SPECIALIST [START ON 10/13/2023] heparin infusion 09181 units/500 mL in 0.45% NaCl (50 units/mL premix) 300-3,500 Units/hr intravenous Continuous Parul Russ, INDEPENDENT LIVING INSTRUCTOR-AUDIO VISUAL PRODUCTION SPECIALIST magnesium sulfate IVPB 2000 mg/50 mL in iso-osmotic water (40 mg/mL premix) 2,000 mg intravenous PRN Parul Hassann, INDEPENDENT LIVING INSTRUCTOR-AUDIO VISUAL PRODUCTION SPECIALIST Or magnesium sulfate IVPB 4000 mg/100 mL in iso-osmotic water (40 mg/mL premix) 4,000 mg intravenous PRN Parul Hassann, INDEPENDENT LIVING INSTRUCTOR-AUDIO VISUAL PRODUCTION SPECIALIST potassium chloride (K-TAB,KLOR-CON) CR tablet 20-50 mEq 20-50 mEq oral PRN Parul R Jeb, INDEPENDENT LIVING INSTRUCTOR-AUDIO VISUAL PRODUCTION SPECIALIST Or potassium chloride (KAYCIEL) 20 mEq/15 mL solution 20-50 mEq 20-50 mEq oral PRN Parul Russ, INDEPENDENT LIVING INSTRUCTOR-AUDIO VISUAL PRODUCTION SPECIALIST potassium chloride IVPB 10 mEq/50 mL in water (0.2 mEq/mL premix) 10 mEq intravenous PRN Parul R Jeb, INDEPENDENT LIVING INSTRUCTOR-AUDIO VISUAL PRODUCTION SPECIALIST Or potassium chloride IVPB 10 mEq/100 mL in water (0.1 mEq/mL premix) 10 mEq intravenous PRN Parul R Jeb, INDEPENDENT LIVING INSTRUCTOR-AUDIO VISUAL PRODUCTION SPECIALIST sodium phosphate 20 mmol in sodium chloride 0.9 % 250 mL IVPB 20 mmol intravenous PRN Parul R Jeb, INDEPENDENT LIVING INSTRUCTOR-AUDIO VISUAL PRODUCTION SPECIALIST Or sodium phosphate 20 mmol in sodium chloride 0.9 % 100 mL IVPB 20 mmol intravenous PRN Parul R Jeb, INDEPENDENT LIVING INSTRUCTOR-AUDIO VISUAL PRODUCTION SPECIALIST Or sod phos di, mono-K phos mono (K-PHOS NEUTRAL) 250 mg tablet 2 tablet 2 tablet oral PRN Parul R Jeb, INDEPENDENT LIVING INSTRUCTOR-AUDIO VISUAL PRODUCTION SPECIALIST sodium chloride 0.9 % infusion 10 mL/hr intravenous Continuous PRN Parul R Jeb, INDEPENDENT LIVING INSTRUCTOR-AUDIO VISUAL PRODUCTION SPECIALIST sodium chloride 0.9 % infusion 10 mL/hr intravenous Continuous PRN Parul R Jeb, INDEPENDENT LIVING INSTRUCTOR-AUDIO VISUAL PRODUCTION SPECIALIST sodium chloride 0.9 % infusion 10 mL/hr intravenous Continuous PRN Parul R Jeb, INDEPENDENT LIVING INSTRUCTOR-AUDIO VISUAL PRODUCTION SPECIALIST Home Meds: Prior to Admission medications Medication Sig Start Date End Date Taking? Authorizing Provider ascorbic acid, vitamin C, (VITAMIN C) 1000 mg tablet Take 1 tablet (1,000 mg total) by mouth in the morning. Not In System Ref Prov aspirin 81 mg chewable tablet Chew 1 tablet (81 mg total) and swallow in the morning. 02/16/23 Sunny Tran PA-C azelastine (OPTIVAR) 0.05 % ophthalmic solution 1 drop in the morning and 1 drop before bedtime. Not In System Ref Prov calcium carbonate (CALCIUM 500 ORAL) Take 500 mg by mouth daily. Tushar Solano Jr., DO calcium citrate 250 mg calcium tablet TAKE 2 TABLETS BY MOUTH EVERY DAY AT NOON 11/25/22 Not In System Ref Prov cholecalciferol, vitamin D3, 125 mcg (5,000 unit) tablet,disintegrating 125 mcg daily. 08/06/21 Not In System Ref Prov clopidogreL (PLAVIX) 75 mg tablet Take 1 tablet (75 mg total) by mouth in the morning. 02/16/23 Sunny Tran PA-C cyanocobalamin (vitamin B-12) 1000 MCG tablet Take 1 tablet (1,000 mcg total) by mouth in the morning. Not In System Ref Prov DULoxetine (CYMBALTA) 30 mg capsule Take 1 capsule (30 mg total) by mouth in the morning. Not In System Ref Prov famotidine (PEPCID) 20 mg tablet Take 2 tablets (40 mg total) by mouth in the evening. Tushar Solano Jr., DO ferrous sulfate 325 (65 FE) mg tablet Take 1 tablet (325 mg total) by mouth daily with breakfast. Not In System Ref Prov ibandronate (BONIVA) 150 mg tablet Take 1 tablet (150 mg total) by mouth every 30 (thirty) days. Take in AM with glass of water prior to food, don't lie down for 60 minutes. Not In System Ref Prov ipratropium (ATROVENT) 21 mcg (0.03 %) nasal spray as needed. 11/13/22 Not In System Ref Prov liothyronine (CYTOMEL) 5 MCG tablet Take 2 tablets (10 mcg total) by mouth in the morning. Not In System Ref Prov metoprolol succinate XL (TOPROL XL) 25 mg 24 hr tablet Take 0.5 tablets (12.5 mg total) by mouth daily as needed (for BP more than 160 mmHg). 03/19/23 Wil Boyce APRN-SUNIL midodrine (PROAMATINE) 5 mg tablet Take 1 tablet (5 mg total) by mouth 3 (three) times a day. prn Not In System Ref Prov montelukast (SINGULAIR) 10 mg tablet Take 1 tablet (10 mg total) by mouth in the morning. 11/14/22 Not In System Ref Prov multivitamin (THERAGRAN) tablet Take 1 tablet by mouth in the morning. Not In System Ref Prov nitroglycerin (NITROSTAT) 0.[address] 1 tablet (0.4 mg total) under the tongue every 5 (five) minutes as needed for chest pain. 02/16/23 Sunny Tran PA-C ondansetron (ZOFRAN) 4 mg tablet Take 1 tablet (4 mg total) by mouth every 8 (eight) hours as needed for nausea or vomiting. Not In System Ref Prov pantoprazole (PROTONIX) 40 mg EC tablet Take 1 tablet (40 mg total) by mouth in the morning. 30 MINS BEFORE BREAKFAST. Tushar Solano Jr., DO pregabalin (LYRICA) 50 mg capsule Take 1 capsule (50 mg total) by mouth in the morning and 1 capsule (50 mg total) before bedtime. 12/07/22 Not In System Ref Prov ranolazine (RANEXA) 1,000 mg 12 hr tablet Take 1 tablet (1,000 mg total) by mouth in the morning and 1 tablet (1,000 mg total) before bedtime. 03/05/23 Keturah Hull MD rimegepant (NURTEC ODT) 75 mg tablet,disintegrating Dissolve 75 mg on tongue in the morning. prn. Not In System Ref Prov rosuvastatin (CRESTOR) 20 mg tablet Take 1 tablet (20 mg total) by mouth in the morning. Not In System Ref Prov sucralfate (CARAFATE) 1 gram tablet Take 1 tablet (1 g total) by mouth in the morning and at bedtime. 08/06/21 Not In System Ref Prov torsemide (DEMADEX) 20 mg tablet Take 1 tablet (20 mg total) by mouth daily. prn Not In System Ref Prov traZODone (DESYREL) 150 mg tablet Take 150 mg by mouth nightly. Tushar Solano Jr., DO Social History: TOBACCO: reports that she has never smoked. She has never used smokeless tobacco. ETOH: reports no history of alcohol use. DRUGS: reports no history of drug use. OCCUPATION: Family History: Family History Problem Relation Age of Onset Arrhythmia Mother Coronary artery disease Mother Heart attack Mother Heart attack Father OBJECTIVE LAST LABS: Lipid Panel: Lab Results Component Value Date CHOL 101 (L) 02/15/2023 TRIG 98 02/15/2023 HDL 54 02/15/2023 Liver Panel: No results found for: ALB HgA1C: Lab Results Component Value Date HGBA1C 5.6 09/05/2014 ABG: CV HISTORY: ECHO: Echo complete W/O contrast Result Date: 01/22/2023 Left Ventricle: Systolic function is moderately decreased with an ejection fraction of 35-40%. Grade I diastolic dysfunction (impaired relaxation) is present. Lateral E' is 9.79 cm/s. Medial E' is 4.68 cm/s. Right Ventricle: Systolic function is mildly to moderately reduced. Abnormal tricuspid annular plane systolic excursion. Aortic Valve: The aortic valve is probable bicuspid with raphe- fusion of right and left cusps. There is mild sclerosis. There is mild regurgitation with eccentrically directed jet. There is no evidence of aortic valve stenosis. STRESS: No results found. HOLTER: No results found. CARDIAC CATH: Cardiac catheterization Result Date: 02/15/2023 High-grade ISR within previously placed stent in the distal circumflex and treatment with 3 x 12 drug-eluting stent post dilated with 3.5 by 12 noncompliant balloon Patent CHURCH to LAD however small caliber CHURCH, chronic finding Patent vein graft to the distal right coronary artery with severe degenerative disease possible thrombus . Distal right coronary artery has diffuse disease in small caliber vessel not amenable to percutaneous coronary intervention. Occluded LAD, occluded right coronary artery Recommendation Dual antiplatelet therapy including aspirin and Plavix plaque should be continued indefinitely given significant disease in [place] coronary arteries. Optimize medical therapy for coronary artery disease. Post percutaneous coronary intervention orders Remove sheath 2.5 hours after stopping Angiomax drip. Family updated Percutaneous coronary intervention Result Date: 02/15/2023 High-grade ISR within previously placed stent in the distal circumflex and treatment with 3 x 12 drug-eluting stent post dilated with 3.5 by 12 noncompliant balloon Patent CHURCH to LAD however small caliber CHURCH, chronic finding Patent vein graft to the distal right coronary artery with severe degenerative disease possible thrombus . Distal right coronary artery has diffuse disease in small caliber vessel not amenable to percutaneous coronary intervention. Occluded LAD, occluded right coronary artery Recommendation Dual antiplatelet therapy including aspirin and Plavix plaque should be continued indefinitely given significant disease in [place] coronary arteries. Optimize medical therapy for coronary artery disease. Post percutaneous coronary intervention orders Remove sheath 2.5 hours after stopping Angiomax drip. Family updated CAROTID: Vas carotid duplex bilateral Result Date: 10/06/2023 Previous: Previous carotid duplex exam performed [...] previous report no significant changes were noted. Vas carotid duplex bilateral Result Date: 02/06/2023 Previous: Previous carotid duplex exam performed 09/05/2014. Bilateral: <50% ICA stenosis. Right: Plaque with no significant ICA spectral Doppler or color flow disturbances; ICA 99/38 cm/sec. Antegrade vertebral artery flow. Left: Plaque with no significant ICA spectral Doppler or color flow disturbances; ICA 115/33 cm/sec. Antegrade vertebral artery flow. Conclusions: BILATERAL: Plaque without significant stenosis (<50%) of the internal carotid artery. Antegrade vertebral artery flow. When compared to previous report no significant changes were noted. CXR: No results found. EKG: pending TELEMETRY: sinus PHYSICAL EXAM Admission Weight: Weight: 67.8 kg (149 lb 7.6 oz) No intake/output data recorded. Weight change: Wt Readings from Last 3 Encounters: 10/12/23 67.8 kg (149 lb 7.6 oz) 05/19/23 65 kg (143 lb 6.4 oz) 03/05/23 63.1 kg (139 lb 3.2 oz) Vitals: Vitals: 10/12/23 2242 BP: (!) 130/91 Pulse: 99 Resp: (!) 34 SpO2: 96% Weight: 67.8 kg (149 lb 7.6 oz) Admit Weight Weight: 67.8 kg (149 lb 7.6 oz) Last 3 Weights Last 3 Weight Readings 10/12/23 2242 Weight: 67.8 kg (149 lb 7.6 oz) Body mass index is 27.34 kg/m . INTAKE/OUTPUT No intake/output data recorded. No intake or output data in the 24 hours ending 10/12/23 2349 General appearance: Alert oriented and cooperative, in no acute distress Skin: Warm and dry to touch Head: Normocephalic, without obvious abnormality, atraumatic Eyes: Conjunctivae unremarkable, intact, sclera non icteric Neck: neck supple, trachea midline Lungs: Crackles bases Heart:: RRR with normal S1 and S2 , no murmurs and no gallops. Extremities: trace edema Neurologic: Oriented to time, person and place, affect appropriate, no focal/major motor or sensory defects noted Psychiatric: Appropriate mood, memory and judgment ASSESSMENT/PLAN Acute on chronic HFrEF Elevated HS troponin 40166 ASCVD h/o CABG and s/p PCI Cx 03/05 Ischemic cardiomyopathy EF 35-40% Hypokalemia Chronic hypotension on midodrine Dyslipidemia Trend troponins Recheck electrolytes IV diuresis Continue Heparin gtt Continue DAPT Unable to titrate GDMT given HOTN Recheck echo CHER RINCON APRN-CNP 10/13/23 0016 [facility] I, LENNY Rodriguez MD, personally performed the face to face diagnostic evaluation on this patient. My findings are as follows: . History of Present Illness: 67 y.o. female with history of heart failure admitted with worsening shortness of breath, nausea/vomiting and diarrhea Found to be hypokalemic Allergies: Allergies Allergen Reactions Aspirin-Dipyridamole aggronox Atorvastatin Hives lipitor Cefadroxil duricef Codeine Fenofibrate Micronized tricor Fluvoxamine luvox Nefazodone serzone Niacin Other reaction(s): Intolerance-unknown Hospital Meds: Current Facility-Administered Medications Medication Dose Route Frequency Provider Last Rate Last Admin aspirin chewable tablet 81 mg 81 mg oral Daily CHER Rincon calcium gluconate IVPB 1000 mg/50 mL (20 mg/mL premix) 1,000 mg intravenous PRN CHER Rincon Or calcium gluconate IVPB 2000 mg/100 mL (20 mg/mL premix) 2,000 mg intravenous PRN CHER Rincon Or calcium gluconate 3,000 mg in sodium chloride 0.9 % 100 mL IVPB 3,000 mg intravenous PRN CHER Rincon clopidogreL (PLAVIX) tablet 75 mg 75 mg oral Daily CHER Rincon dextrose (GLUTOSE) 40 % gel 15 g 15 g oral PRN CHER Rincon dextrose 5 % (D5W) infusion 100 mL/hr intravenous Continuous PRN CHER Rincon dextrose 50 % in water (D50W) 50% solution 25 mL 25 mL intravenous PRN CHER Rincon glucagon HCL injection 1 mg 1 mg intramuscular PRN CHER Rincon heparin (porcine) injection 2,000 Units 2,000 Units intravenous PRN Parul R Jeb, INDEPENDENT LIVING INSTRUCTOR-AUDIO VISUAL PRODUCTION SPECIALIST heparin infusion 66779 units/500 mL in 0.45% NaCl (50 units/mL premix) 300-3,500 Units/hr intravenous Continuous Parul Holder Jeb, INDEPENDENT LIVING INSTRUCTOR-AUDIO VISUAL PRODUCTION SPECIALIST 16 mL/hr at 10/13/23 0013 800 Units/hr at 10/13/23 0013 magnesium sulfate IVPB 2000 mg/50 mL in iso-osmotic water (40 mg/mL premix) 2,000 mg intravenous PRN Parul R Jeb, INDEPENDENT LIVING INSTRUCTOR-AUDIO VISUAL PRODUCTION SPECIALIST Or magnesium sulfate IVPB 4000 mg/100 mL in iso-osmotic water (40 mg/mL premix) 4,000 mg intravenous PRN Parul R Jeb, INDEPENDENT LIVING INSTRUCTOR-AUDIO VISUAL PRODUCTION SPECIALIST midodrine (PROAMATINE) tablet 5 mg 5 mg oral Q8H PRN Parul R Jeb, INDEPENDENT LIVING INSTRUCTOR-AUDIO VISUAL PRODUCTION SPECIALIST potassium chloride (K-TAB,KLOR-CON) CR tablet 20-50 mEq 20-50 mEq oral PRN Parul R Jeb, INDEPENDENT LIVING INSTRUCTOR-AUDIO VISUAL PRODUCTION SPECIALIST Or potassium chloride (KAYCIEL) 20 mEq/15 mL solution 20-50 mEq 20-50 mEq oral PRN Parul R Jeb, INDEPENDENT LIVING INSTRUCTOR-AUDIO VISUAL PRODUCTION SPECIALIST potassium chloride IVPB 10 mEq/50 mL in water (0.2 mEq/mL premix) 10 mEq intravenous PRN Parul R Jeb, INDEPENDENT LIVING INSTRUCTOR-AUDIO VISUAL PRODUCTION SPECIALIST Or potassium chloride IVPB 10 mEq/100 mL in water (0.1 mEq/mL premix) 10 mEq intravenous PRN Parul R Jeb, INDEPENDENT LIVING INSTRUCTOR-AUDIO VISUAL PRODUCTION SPECIALIST ranolazine (RANEXA) 12 hr tablet 1,000 mg 1,000 mg oral BID Parul R Jeb, INDEPENDENT LIVING INSTRUCTOR-AUDIO VISUAL PRODUCTION SPECIALIST rosuvastatin (CRESTOR) tablet 20 mg 20 mg oral Daily Parul R Jeb, INDEPENDENT LIVING INSTRUCTOR-AUDIO VISUAL PRODUCTION SPECIALIST sodium phosphate 20 mmol in sodium chloride 0.9 % 250 mL IVPB 20 mmol intravenous PRN Parul R Jeb, INDEPENDENT LIVING INSTRUCTOR-AUDIO VISUAL PRODUCTION SPECIALIST Or sodium phosphate 20 mmol in sodium chloride 0.9 % 100 mL IVPB 20 mmol intravenous PRN Parul R Jeb, INDEPENDENT LIVING INSTRUCTOR-AUDIO VISUAL PRODUCTION SPECIALIST Or sod phos di, mono-K phos mono (K-PHOS NEUTRAL) 250 mg tablet 2 tablet 2 tablet oral PRN Parul R Jeb, INDEPENDENT LIVING INSTRUCTOR-AUDIO VISUAL PRODUCTION SPECIALIST sodium chloride 0.9 % infusion 10 mL/hr intravenous Continuous PRN Parul R Jeb, INDEPENDENT LIVING INSTRUCTOR-AUDIO VISUAL PRODUCTION SPECIALIST sodium chloride 0.9 % infusion 10 mL/hr intravenous Continuous PRN Parul R Jeb, INDEPENDENT LIVING INSTRUCTOR-AUDIO VISUAL PRODUCTION SPECIALIST sodium chloride 0.9 % infusion 10 mL/hr intravenous Continuous PRN Parul R Jeb, INDEPENDENT LIVING INSTRUCTOR-AUDIO VISUAL PRODUCTION SPECIALIST Laboratory CBC: BMP: Troponin I Physical Exam Vital Signs: BP 139/90 Pulse 98 Resp 14 Wt 67.8 kg (149 lb 7.6 oz) SpO2 94% BMI 27.34 kg/m O2 Flow Rate (L/min): 2 L/min General appearance: Alert oriented and cooperative, in no acute distress, pleasant Skin: Warm and dry to touch Lungs: Bilateral diminished Heart:: RRR with Normal S1 and S2, no murmurs and no gallops Extremities: Trace edema PLAN 1. Acute on chronic heart failure with reduced ejection fraction 2. Ischemic cardiomyopathy with ejection fraction of 35-40% 3. ASCVD status post CABG without angina --left heart catheterization 02/2023 --on Ranexa --aspirin/Plavix 4. Hypokalemia 5 history of CVA 6. Primary hypertension with midodrine also prescribed 7. Hyperlipidemia --rosuvastatin LENNY Rodriguez MD This note was completed using a voice agricultural purchasing agent system. Every effort was made to ensure accuracy. However, inadvertent computerized agricultural purchasing agent errors may be present. [employer] Work Phone: 10-14-2023 History and physical note HISTORY AND PHYSICAL INTERVAL NOTE: Ashvin Rene [id number] H&P reviewed. The patient was examined and there are no changes to the H&P. Alexi Freeman MD Source Note - Lenny Rodriguez MD - 10/12/2023 11:49 PM EDT Images from the original note were not included. [facility] [address] [place] [address] HISTORY & PHYSICAL / CONSULT NOTE Ashvin Rene PCP: TUSHAR SOLANO JR, DO Date of Admission: 10/12/2023 Date of Consultation: 10/12/2023 11:49 PM Consult for CHF SUBJECTIVE History of Present Illness: Ashvin Rene is a 67 y.o. 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, prior CVA who presented to OSH with weakness SOB and cough found to be in CHF with proBNP 70118, HS trop 65096, and K 2.1 which was repleted but not rechecked. She has had vomiting past 2 weeks but has been able to take her meds and eat intermittently. States she has had diarrhea for many years. In the past 2 weeks she has had 2 epsiodes of CP- one midsternal sharp episode and on episode of heaviness. She has had intermittent LE edema. She is requiring 2 L NC. CXR with concern for infiltrate and was given ATB but WBC 7 and lactate was not elevated. She was started on Heparin gtt and transferred to [facility]. She states she feels better now and denies CP SOB. Previous Medical History: Past Medical History: Diagnosis Date Angina pectoris ([facility]) Atherosclerosis of coronary artery bypass graft Atherosclerotic heart disease Coronary angioplasty status Coronary artery disease CVA (cerebral vascular accident) ([facility]) Dyspnea Hyperlipidemia Hypertension Hypotension Other chest pain Stroke ([facility]) Previous Surgical History: Past Surgical History: Procedure Laterality Date CARDIAC CATHETERIZATION Cardiac catheterization N/A 02/15/2023 Performed by Star Espinosa MD at [facility] CARD[facility]AC CATH LABS Cardiac catheterization - LV cors w/graft check N/A 10/25/2020 Performed by Alexi Freeman MD at [facility] CARDIAC CATH LABS Coronary angiogram and graft/[place] N/A 02/15/2023 Performed by Star Espinosa MD at [facility] CARDIAC CATH LABS Coronary angiogram and left ventricular gram/pressure + graft/[place] N/A 10/25/2020 Performed by Alexi Freeman MD at [facility] CARDIAC CATH LABS Coronary angiogram and left ventricular gram/pressure + graft/[place] N/A 06/18/2016 Performed by Alexi Freeman MD at [facility] CARDIAC CATH LABS CORONARY ANGIOPLASTY 12/08/2020 orbital atherectomy and 2 HARRY to prox and distal Circ, at [facility] per Dr. Madhav Ugalde CORONARY ARTERY BYPASS GRAFT 09/08/2014 HYSTERECTOMY INSERTION LOOP RECORDER 05/24/2016 Percutaneous coronary angioplasty left circumflex N/A 02/15/2023 Performed by Star Espinosa MD at [facility] CARDIAC CATH LABS Stent drug-eluting left circumflex N/A 02/15/2023 Performed by Star Espinosa MD at [facility] CARDIAC CATH LABS Allergies: Allergies Allergen Reactions Aspirin-Dipyridamole aggronox Atorvastatin Hives lipitor Cefadroxil duricef Codeine Fenofibrate Micronized tricor Fluvoxamine luvox Nefazodone serzone Niacin Other reaction(s): Intolerance-unknown Hospital Meds: Current Facility-Administered Medications Medication Dose Route Frequency Provider Last Rate Last Admin calcium gluconate IVPB 1000 mg/50 mL (20 mg/mL premix) 1,000 mg intravenous PRN Parul Russ APRN-SUNIL Or calcium gluconate IVPB 2000 mg/100 mL (20 mg/mL premix) 2,000 mg intravenous PRN Parul Russ APRN-SUNIL Or calcium gluconate 3,000 mg in sodium chloride 0.9 % 100 mL IVPB 3,000 mg intravenous PRN Parul Russ APRN-SUNIL dextrose (GLUTOSE) 40 % gel 15 g 15 g oral PRN Parul Russ APRN-SUNIL dextrose 5 % (D5W) infusion 100 mL/hr intravenous Continuous PRN Parul Russ APRN-SUNIL dextrose 50 % in water (D50W) 50% solution 25 mL 25 mL intravenous PRN Parul Russ APRN-SUNIL glucagon HCL injection 1 mg 1 mg intramuscular PRN Parul Russ APRN-SUNIL heparin (porcine) injection 2,000 Units 2,000 Units intravenous PRN Parul Russ APRN-SUNIL [START ON 10/13/2023] heparin infusion 26707 units/500 mL in 0.45% NaCl (50 units/mL premix) 300-3,500 Units/hr intravenous Continuous Parul Russ APRN-SUNIL magnesium sulfate IVPB 2000 mg/50 mL in iso-osmotic water (40 mg/mL premix) 2,000 mg intravenous PRN Parul R Jeb, INDEPENDENT LIVING INSTRUCTOR-AUDIO VISUAL PRODUCTION SPECIALIST Or magnesium sulfate IVPB 4000 mg/100 mL in iso-osmotic water (40 mg/mL premix) 4,000 mg intravenous PRN Parul R Jeb, INDEPENDENT LIVING INSTRUCTOR-AUDIO VISUAL PRODUCTION SPECIALIST potassium chloride (K-TAB,KLOR-CON) CR tablet 20-50 mEq 20-50 mEq oral PRN Parul R Jeb, INDEPENDENT LIVING INSTRUCTOR-AUDIO VISUAL PRODUCTION SPECIALIST Or potassium chloride (KAYCIEL) 20 mEq/15 mL solution 20-50 mEq 20-50 mEq oral PRN Parul R Jeb, INDEPENDENT LIVING INSTRUCTOR-AUDIO VISUAL PRODUCTION SPECIALIST potassium chloride IVPB 10 mEq/50 mL in water (0.2 mEq/mL premix) 10 mEq intravenous PRN Parul R Jeb, INDEPENDENT LIVING INSTRUCTOR-AUDIO VISUAL PRODUCTION SPECIALIST Or potassium chloride IVPB 10 mEq/100 mL in water (0.1 mEq/mL premix) 10 mEq intravenous PRN Parul R Jeb, INDEPENDENT LIVING INSTRUCTOR-AUDIO VISUAL PRODUCTION SPECIALIST sodium phosphate 20 mmol in sodium chloride 0.9 % 250 mL IVPB 20 mmol intravenous PRN Parul R Jeb, INDEPENDENT LIVING INSTRUCTOR-AUDIO VISUAL PRODUCTION SPECIALIST Or sodium phosphate 20 mmol in sodium chloride 0.9 % 100 mL IVPB 20 mmol intravenous PRN Parul R Jeb, INDEPENDENT LIVING INSTRUCTOR-AUDIO VISUAL PRODUCTION SPECIALIST Or sod phos di, mono-K phos mono (K-PHOS NEUTRAL) 250 mg tablet 2 tablet 2 tablet oral PRN Parul R Jeb, INDEPENDENT LIVING INSTRUCTOR-AUDIO VISUAL PRODUCTION SPECIALIST sodium chloride 0.9 % infusion 10 mL/hr intravenous Continuous PRN Parul R Jeb, INDEPENDENT LIVING INSTRUCTOR-AUDIO VISUAL PRODUCTION SPECIALIST sodium chloride 0.9 % infusion 10 mL/hr intravenous Continuous PRN Parul R Jeb, INDEPENDENT LIVING INSTRUCTOR-AUDIO VISUAL PRODUCTION SPECIALIST sodium chloride 0.9 % infusion 10 mL/hr intravenous Continuous PRN Parul R Jeb, INDEPENDENT LIVING INSTRUCTOR-AUDIO VISUAL PRODUCTION SPECIALIST Home Meds: Prior to Admission medications Medication Sig Start Date End Date Taking? Authorizing Provider ascorbic acid, vitamin C, (VITAMIN C) 1000 mg tablet Take 1 tablet (1,000 mg total) by mouth in the morning. Not In System Ref Prov aspirin 81 mg chewable tablet Chew 1 tablet (81 mg total) and swallow in the morning. 02/16/23 Sunny Tran PA-C azelastine (OPTIVAR) 0.05 % ophthalmic solution 1 drop in the morning and 1 drop before bedtime. Not In System Ref Prov calcium carbonate (CALCIUM 500 ORAL) Take 500 mg by mouth daily. Tushar Solano Jr., DO calcium citrate 250 mg calcium tablet TAKE 2 TABLETS BY MOUTH EVERY DAY AT NOON 11/25/22 Not In System Ref Prov cholecalciferol, vitamin D3, 125 mcg (5,000 unit) tablet,disintegrating 125 mcg daily. 08/06/21 Not In System Ref Prov clopidogreL (PLAVIX) 75 mg tablet Take 1 tablet (75 mg total) by mouth in the morning. 02/16/23 Sunny Tran PA-C cyanocobalamin (vitamin B-12) 1000 MCG tablet Take 1 tablet (1,000 mcg total) by mouth in the morning. Not In System Ref Prov DULoxetine (CYMBALTA) 30 mg capsule Take 1 capsule (30 mg total) by mouth in the morning. Not In System Ref Prov famotidine (PEPCID) 20 mg tablet Take 2 tablets (40 mg total) by mouth in the evening. Tushar Solano Jr., DO ferrous sulfate 325 (65 FE) mg tablet Take 1 tablet (325 mg total) by mouth daily with breakfast. Not In System Ref Prov ibandronate (BONIVA) 150 mg tablet Take 1 tablet (150 mg total) by mouth every 30 (thirty) days. Take in AM with glass of water prior to food, don't lie down for 60 minutes. Not In System Ref Prov ipratropium (ATROVENT) 21 mcg (0.03 %) nasal spray as needed. 11/13/22 Not In System Ref Prov liothyronine (CYTOMEL) 5 MCG tablet Take 2 tablets (10 mcg total) by mouth in the morning. Not In System Ref Prov metoprolol succinate XL (TOPROL XL) 25 mg 24 hr tablet Take 0.5 tablets (12.5 mg total) by mouth daily as needed (for BP more than 160 mmHg). 03/19/23 Wil Boyce APRN-SUNIL midodrine (PROAMATINE) 5 mg tablet Take 1 tablet (5 mg total) by mouth 3 (three) times a day. prn Not In System Ref Prov montelukast (SINGULAIR) 10 mg tablet Take 1 tablet (10 mg total) by mouth in the morning. 11/14/22 Not In System Ref Prov multivitamin (THERAGRAN) tablet Take 1 tablet by mouth in the morning. Not In System Ref Prov nitroglycerin (NITROSTAT) 0.[address] 1 tablet (0.4 mg total) under the tongue every 5 (five) minutes as needed for chest pain. 02/16/23 Sunny Tran PA-C ondansetron (ZOFRAN) 4 mg tablet Take 1 tablet (4 mg total) by mouth every 8 (eight) hours as needed for nausea or vomiting. Not In System Ref Prov pantoprazole (PROTONIX) 40 mg EC tablet Take 1 tablet (40 mg total) by mouth in the morning. 30 MINS BEFORE BREAKFAST. Tushar Soalno Jr., DO pregabalin (LYRICA) 50 mg capsule Take 1 capsule (50 mg total) by mouth in the morning and 1 capsule (50 mg total) before bedtime. 12/07/22 Not In System Ref Prov ranolazine (RANEXA) 1,000 mg 12 hr tablet Take 1 tablet (1,000 mg total) by mouth in the morning and 1 tablet (1,000 mg total) before bedtime. 03/05/23 Keturah Hull MD rimegepant (NURTEC ODT) 75 mg tablet,disintegrating Dissolve 75 mg on tongue in the morning. prn. Not In System Ref Prov rosuvastatin (CRESTOR) 20 mg tablet Take 1 tablet (20 mg total) by mouth in the morning. Not In System Ref Prov sucralfate (CARAFATE) 1 gram tablet Take 1 tablet (1 g total) by mouth in the morning and at bedtime. 08/06/21 Not In System Ref Prov torsemide (DEMADEX) 20 mg tablet Take 1 tablet (20 mg total) by mouth daily. prn Not In System Ref Prov traZODone (DESYREL) 150 mg tablet Take 150 mg by mouth nightly. Tushar Solano Jr., DO Social History: TOBACCO: reports that she has never smoked. She has never used smokeless tobacco. ETOH: reports no history of alcohol use. DRUGS: reports no history of drug use. OCCUPATION: Family History: Family History Problem Relation Age of Onset Arrhythmia Mother Coronary artery disease Mother Heart attack Mother Heart attack Father OBJECTIVE LAST LABS: Lipid Panel: Lab Results Component Value Date CHOL 101 (L) 02/15/2023 TRIG 98 02/15/2023 HDL 54 02/15/2023 Liver Panel: No results found for: ALB HgA1C: Lab Results Component Value Date HGBA1C 5.6 09/05/2014 ABG: CV HISTORY: ECHO: Echo complete W/O contrast Result Date: 01/22/2023 Left Ventricle: Systolic function is moderately decreased with an ejection fraction of 35-40%. Grade I diastolic dysfunction (impaired relaxation) is present. Lateral E' is 9.79 cm/s. Medial E' is 4.68 cm/s. Right Ventricle: Systolic function is mildly to moderately reduced. Abnormal tricuspid annular plane systolic excursion. Aortic Valve: The aortic valve is probable bicuspid with raphe- fusion of right and left cusps. There is mild sclerosis. There is mild regurgitation with eccentrically directed jet. There is no evidence of aortic valve stenosis. STRESS: No results found. HOLTER: No results found. CARDIAC CATH: Cardiac catheterization Result Date: 02/15/2023 High-grade ISR within previously placed stent in the distal circumflex and treatment with 3 x 12 drug-eluting stent post dilated with 3.5 by 12 noncompliant balloon Patent CHURCH to LAD however small caliber CHURCH, chronic finding Patent vein graft to the distal right coronary artery with severe degenerative disease possible thrombus . Distal right coronary artery has diffuse disease in small caliber vessel not amenable to percutaneous coronary intervention. Occluded LAD, occluded right coronary artery Recommendation Dual antiplatelet therapy including aspirin and Plavix plaque should be continued indefinitely given significant disease in [place] coronary arteries. Optimize medical therapy for coronary artery disease. Post percutaneous coronary intervention orders Remove sheath 2.5 hours after stopping Angiomax drip. Family updated Percutaneous coronary intervention Result Date: 02/15/2023 High-grade ISR within previously placed stent in the distal circumflex and treatment with 3 x 12 drug-eluting stent post dilated with 3.5 by 12 noncompliant balloon Patent CHURCH to LAD however small caliber CHURCH, chronic finding Patent vein graft to the distal right coronary artery with severe degenerative disease possible thrombus . Distal right coronary artery has diffuse disease in small caliber vessel not amenable to percutaneous coronary intervention. Occluded LAD, occluded right coronary artery Recommendation Dual antiplatelet therapy including aspirin and Plavix plaque should be continued indefinitely given significant disease in [place] coronary arteries. Optimize medical therapy for coronary artery disease. Post percutaneous coronary intervention orders Remove sheath 2.5 hours after stopping Angiomax drip. Family updated CAROTID: Vas carotid duplex bilateral Result Date: 10/06/2023 Previous: Previous carotid duplex exam performed [...] previous report no significant changes were noted. Vas carotid duplex bilateral Result Date: 02/06/2023 Previous: Previous carotid duplex exam performed 09/05/2014. Bilateral: <50% ICA stenosis. Right: Plaque with no significant ICA spectral Doppler or color flow disturbances; ICA 99/38 cm/sec. Antegrade vertebral artery flow. Left: Plaque with no significant ICA spectral Doppler or color flow disturbances; ICA 115/33 cm/sec. Antegrade vertebral artery flow. Conclusions: BILATERAL: Plaque without significant stenosis (<50%) of the internal carotid artery. Antegrade vertebral artery flow. When compared to previous report no significant changes were noted. CXR: No results found. EKG: pending TELEMETRY: sinus PHYSICAL EXAM Admission Weight: Weight: 67.8 kg (149 lb 7.6 oz) No intake/output data recorded. Weight change: Wt Readings from Last 3 Encounters: 10/12/23 67.8 kg (149 lb 7.6 oz) 05/19/23 65 kg (143 lb 6.4 oz) 03/05/23 63.1 kg (139 lb 3.2 oz) Vitals: Vitals: 10/12/232 BP: (!) 130/91 Pulse: 99 Resp: (!) 34 SpO2: 96% Weight: 67.8 kg (149 lb 7.6 oz) Admit Weight Weight: 67.8 kg (149 lb 7.6 oz) Last 3 Weights Last 3 Weight Readings 10/12/232 Weight: 67.8 kg (149 lb 7.6 oz) Body mass index is 27.34 kg/m . INTAKE/OUTPUT No intake/output data recorded. No intake or output data in the 24 hours ending 10/12/23 7289 General appearance: Alert oriented and cooperative, in no acute distress Skin: Warm and dry to touch Head: Normocephalic, without obvious abnormality, atraumatic Eyes: Conjunctivae unremarkable, intact, sclera non icteric Neck: neck supple, trachea midline Lungs: Crackles bases Heart:: RRR with normal S1 and S2 , no murmurs and no gallops. Extremities: trace edema Neurologic: Oriented to time, person and place, affect appropriate, no focal/major motor or sensory defects noted Psychiatric: Appropriate mood, memory and judgment ASSESSMENT/PLAN Acute on chronic HFrEF Elevated HS troponin 40784 ASCVD h/o CABG and s/p PCI Cx 03/05 Ischemic cardiomyopathy EF 35-40% Hypokalemia Chronic hypotension on midodrine Dyslipidemia Trend troponins Recheck electrolytes IV diuresis Continue Heparin gtt Continue DAPT Unable to titrate GDMT given HOTN Recheck echo CHER RINCON APRN-CNP 10/13/23 0016 [facility] I, LENNY Rodriguez MD, personally performed the face to face diagnostic evaluation on this patient. My findings are as follows: . History of Present Illness: 67 y.o. female with history of heart failure admitted with worsening shortness of breath, nausea/vomiting and diarrhea Found to be hypokalemic Allergies: Allergies Allergen Reactions Aspirin-Dipyridamole aggronox Atorvastatin Hives lipitor Cefadroxil duricef Codeine Fenofibrate Micronized tricor Fluvoxamine luvox Nefazodone serzone Niacin Other reaction(s): Intolerance-unknown Hospital Meds: Current Facility-Administered Medications Medication Dose Route Frequency Provider Last Rate Last Admin aspirin chewable tablet 81 mg 81 mg oral Daily CHER Rincon calcium gluconate IVPB 1000 mg/50 mL (20 mg/mL premix) 1,000 mg intravenous PRN CHER Rincon Or calcium gluconate IVPB 2000 mg/100 mL (20 mg/mL premix) 2,000 mg intravenous PRN CHER Rincon Or calcium gluconate 3,000 mg in sodium chloride 0.9 % 100 mL IVPB 3,000 mg intravenous PRN CHER Rincon clopidogreL (PLAVIX) tablet 75 mg 75 mg oral Daily Parul R Jeb, INDEPENDENT LIVING INSTRUCTOR-AUDIO VISUAL PRODUCTION SPECIALIST dextrose (GLUTOSE) 40 % gel 15 g 15 g oral PRN Parul Russ, INDEPENDENT LIVING INSTRUCTOR-AUDIO VISUAL PRODUCTION SPECIALIST dextrose 5 % (D5W) infusion 100 mL/hr intravenous Continuous PRN Parul Russ, INDEPENDENT LIVING INSTRUCTOR-AUDIO VISUAL PRODUCTION SPECIALIST dextrose 50 % in water (D50W) 50% solution 25 mL 25 mL intravenous PRN Parul Hassann, INDEPENDENT LIVING INSTRUCTOR-AUDIO VISUAL PRODUCTION SPECIALIST glucagon HCL injection 1 mg 1 mg intramuscular PRN Parul Russ, INDEPENDENT LIVING INSTRUCTOR-AUDIO VISUAL PRODUCTION SPECIALIST heparin (porcine) injection 2,000 Units 2,000 Units intravenous PRN Parul Hassann, INDEPENDENT LIVING INSTRUCTOR-AUDIO VISUAL PRODUCTION SPECIALIST heparin infusion 07646 units/500 mL in 0.45% NaCl (50 units/mL premix) 300-3,500 Units/hr intravenous Continuous Parul Hassann, INDEPENDENT LIVING INSTRUCTOR-AUDIO VISUAL PRODUCTION SPECIALIST 16 mL/hr at 10/13/23 0013 800 Units/hr at 10/13/23 0013 magnesium sulfate IVPB 2000 mg/50 mL in iso-osmotic water (40 mg/mL premix) 2,000 mg intravenous PRN Parul Russ, INDEPENDENT LIVING INSTRUCTOR-AUDIO VISUAL PRODUCTION SPECIALIST Or magnesium sulfate IVPB 4000 mg/100 mL in iso-osmotic water (40 mg/mL premix) 4,000 mg intravenous PRN Parul Russ, INDEPENDENT LIVING INSTRUCTOR-AUDIO VISUAL PRODUCTION SPECIALIST midodrine (PROAMATINE) tablet 5 mg 5 mg oral Q8H PRN Parul Russ, INDEPENDENT LIVING INSTRUCTOR-AUDIO VISUAL PRODUCTION SPECIALIST potassium chloride (K-TAB,KLOR-CON) CR tablet 20-50 mEq 20-50 mEq oral PRN Parul Russ, INDEPENDENT LIVING INSTRUCTOR-AUDIO VISUAL PRODUCTION SPECIALIST Or potassium chloride (KAYCIEL) 20 mEq/15 mL solution 20-50 mEq 20-50 mEq oral PRN Parul Hassann, INDEPENDENT LIVING INSTRUCTOR-AUDIO VISUAL PRODUCTION SPECIALIST potassium chloride IVPB 10 mEq/50 mL in water (0.2 mEq/mL premix) 10 mEq intravenous PRN Parul Holder Jeb, INDEPENDENT LIVING INSTRUCTOR-AUDIO VISUAL PRODUCTION SPECIALIST Or potassium chloride IVPB 10 mEq/100 mL in water (0.1 mEq/mL premix) 10 mEq intravenous PRN Parul Hassann, INDEPENDENT LIVING INSTRUCTOR-AUDIO VISUAL PRODUCTION SPECIALIST ranolazine (RANEXA) 12 hr tablet 1,000 mg 1,000 mg oral BID Parul Hassann, INDEPENDENT LIVING INSTRUCTOR-AUDIO VISUAL PRODUCTION SPECIALIST rosuvastatin (CRESTOR) tablet 20 mg 20 mg oral Daily Parul R Jeb, INDEPENDENT LIVING INSTRUCTOR-AUDIO VISUAL PRODUCTION SPECIALIST sodium phosphate 20 mmol in sodium chloride 0.9 % 250 mL IVPB 20 mmol intravenous PRN Parul R Jeb, INDEPENDENT LIVING INSTRUCTOR-AUDIO VISUAL PRODUCTION SPECIALIST Or sodium phosphate 20 mmol in sodium chloride 0.9 % 100 mL IVPB 20 mmol intravenous PRN Parul R Jeb, INDEPENDENT LIVING INSTRUCTOR-AUDIO VISUAL PRODUCTION SPECIALIST Or sod phos di, mono-K phos mono (K-PHOS NEUTRAL) 250 mg tablet 2 tablet 2 tablet oral PRN Parul R Jeb, INDEPENDENT LIVING INSTRUCTOR-AUDIO VISUAL PRODUCTION SPECIALIST sodium chloride 0.9 % infusion 10 mL/hr intravenous Continuous PRN Parul R Jeb, INDEPENDENT LIVING INSTRUCTOR-AUDIO VISUAL PRODUCTION SPECIALIST sodium chloride 0.9 % infusion 10 mL/hr intravenous Continuous PRN Parul R Jeb, INDEPENDENT LIVING INSTRUCTOR-AUDIO VISUAL PRODUCTION SPECIALIST sodium chloride 0.9 % infusion 10 mL/hr intravenous Continuous PRN Parul R Jeb, INDEPENDENT LIVING INSTRUCTOR-AUDIO VISUAL PRODUCTION SPECIALIST Laboratory CBC: BMP: Troponin I Physical Exam Vital Signs: BP 139/90 Pulse 98 Resp 14 Wt 67.8 kg (149 lb 7.6 oz) SpO2 94% BMI 27.34 kg/m O2 Flow Rate (L/min): 2 L/min General appearance: Alert oriented and cooperative, in no acute distress, pleasant Skin: Warm and dry to touch Lungs: Bilateral diminished Heart:: RRR with Normal S1 and S2, no murmurs and no gallops Extremities: Trace edema PLAN 1. Acute on chronic heart failure with reduced ejection fraction 2. Ischemic cardiomyopathy with ejection fraction of 35-40% 3. ASCVD status post CABG without angina --left heart catheterization 02/2023 --on Ranexa --aspirin/Plavix 4. Hypokalemia 5 history of CVA 6. Primary hypertension with midodrine also prescribed 7. Hyperlipidemia --rosuvastatin LENNY Rodriguez MD This note was completed using a voice agricultural purchasing agent system. Every effort was made to ensure accuracy. However, inadvertent computerized agricultural purchasing agent errors may be present. Images from the original note were not included. [facility] [address] [place] [address] HISTORY & PHYSICAL / CONSULT NOTE Ashvin eRne PCP: TUSHAR SOLANO JR, DO Date of Admission: 10/12/2023 Date of Consultation: 10/12/2023 11:49 PM Consult for CHF SUBJECTIVE History of Present Illness: Ashvin Rene is a 67 y.o. 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, prior CVA who presented to OSH with weakness SOB and cough found to be in CHF with proBNP 20300, HS trop 19651, and K 2.1 which was repleted but not rechecked. She has had vomiting past 2 weeks but has been able to take her meds and eat intermittently. States she has had diarrhea for many years. In the past 2 weeks she has had 2 epsiodes of CP- one midsternal sharp episode and on episode of heaviness. She has had intermittent LE edema. She is requiring 2 L NC. CXR with concern for infiltrate and was given ATB but WBC 7 and lactate was not elevated. She was started on Heparin gtt and transferred to TT. She states she feels better now and denies CP SOB. Previous Medical History: Past Medical History: Diagnosis Date Angina pectoris ([facility]) Atherosclerosis of coronary artery bypass graft Atherosclerotic heart disease Coronary angioplasty status Coronary artery disease CVA (cerebral vascular accident) ([facility]) Dyspnea Hyperlipidemia Hypertension Hypotension Other chest pain Stroke ([facility]) Previous Surgical History: Past Surgical History: Procedure Laterality Date CARDIAC CATHETERIZATION Cardiac catheterization N/A 02/15/2023 Performed by Star Espinosa MD at [facility] CARD[facility]AC [facility]ATH LABS Cardiac catheterization - LV cors w/graft check N/A 10/25/2020 Performed by Alexi Freeman MD at [facility] CARDIAC CATH LABS Coronary angiogram and graft/[place] N/A 02/15/2023 Performed by Star Espinosa MD at [facility] CARDIAC CATH LABS Coronary angiogram and left ventricular gram/pressure + graft/[place] N/A 10/25/2020 Performed by Alexi Freeman MD at [facility] CARDIAC CATH LABS Coronary angiogram and left ventricular gram/pressure + graft/[place] N/A 06/18/2016 Performed by Alexi Freeman MD at [facility] CARDIAC CATH LABS CORONARY ANGIOPLASTY 12/08/2020 orbital atherectomy and 2 HARRY to prox and distal Circ, at [facility] per Dr. Madhav Ugalde CORONARY ARTERY BYPASS GRAFT 09/08/2014 HYSTERECTOMY INSERTION LOOP RECORDER 05/24/2016 Percutaneous coronary angioplasty left circumflex N/A 02/15/2023 Performed by Star Espinosa MD at [facility] CARDIAC CATH LABS Stent drug-eluting left circumflex N/A 02/15/2023 Performed by Star Espinosa MD at [facility] CARDIAC CATH LABS Allergies: Allergies Allergen Reactions Aspirin-Dipyridamole aggronox Atorvastatin Hives lipitor Cefadroxil duricef Codeine Fenofibrate Micronized tricor Fluvoxamine luvox Nefazodone serzone Niacin Other reaction(s): Intolerance-unknown Hospital Meds: Current Facility-Administered Medications Medication Dose Route Frequency Provider Last Rate Last Admin calcium gluconate IVPB 1000 mg/50 mL (20 mg/mL premix) 1,000 mg intravenous PRN CHER Rincon Or calcium gluconate IVPB 2000 mg/100 mL (20 mg/mL premix) 2,000 mg intravenous PRN CHER Rincon Or calcium gluconate 3,000 mg in sodium chloride 0.9 % 100 mL IVPB 3,000 mg intravenous PRN CHER Rincon dextrose (GLUTOSE) 40 % gel 15 g 15 g oral PRN CHER Rincon dextrose 5 % (D5W) infusion 100 mL/hr intravenous Continuous PRN CHER Rincon dextrose 50 % in water (D50W) 50% solution 25 mL 25 mL intravenous PRN CHER Rincon glucagon HCL injection 1 mg 1 mg intramuscular PRN CHER Rincon heparin (porcine) injection 2,000 Units 2,000 Units intravenous PRN CHER Rincon [START ON 10/13/2023] heparin infusion 07667 units/500 mL in 0.45% NaCl (50 units/mL premix) 300-3,500 Units/hr intravenous Continuous CHER Rincon magnesium sulfate IVPB 2000 mg/50 mL in iso-osmotic water (40 mg/mL premix) 2,000 mg intravenous PRN Parul R Jeb, INDEPENDENT LIVING INSTRUCTOR-AUDIO VISUAL PRODUCTION SPECIALIST Or magnesium sulfate IVPB 4000 mg/100 mL in iso-osmotic water (40 mg/mL premix) 4,000 mg intravenous PRN Parul R Jeb, INDEPENDENT LIVING INSTRUCTOR-AUDIO VISUAL PRODUCTION SPECIALIST potassium chloride (K-TAB,KLOR-CON) CR tablet 20-50 mEq 20-50 mEq oral PRN Parul R Jeb, INDEPENDENT LIVING INSTRUCTOR-AUDIO VISUAL PRODUCTION SPECIALIST Or potassium chloride (KAYCIEL) 20 mEq/15 mL solution 20-50 mEq 20-50 mEq oral PRN Parul R Jeb, INDEPENDENT LIVING INSTRUCTOR-AUDIO VISUAL PRODUCTION SPECIALIST potassium chloride IVPB 10 mEq/50 mL in water (0.2 mEq/mL premix) 10 mEq intravenous PRN Parul R Jeb, INDEPENDENT LIVING INSTRUCTOR-AUDIO VISUAL PRODUCTION SPECIALIST Or potassium chloride IVPB 10 mEq/100 mL in water (0.1 mEq/mL premix) 10 mEq intravenous PRN Parul R Jeb, INDEPENDENT LIVING INSTRUCTOR-AUDIO VISUAL PRODUCTION SPECIALIST sodium phosphate 20 mmol in sodium chloride 0.9 % 250 mL IVPB 20 mmol intravenous PRN Parul R Jeb, INDEPENDENT LIVING INSTRUCTOR-AUDIO VISUAL PRODUCTION SPECIALIST Or sodium phosphate 20 mmol in sodium chloride 0.9 % 100 mL IVPB 20 mmol intravenous PRN Parul R Jeb, INDEPENDENT LIVING INSTRUCTOR-AUDIO VISUAL PRODUCTION SPECIALIST Or sod phos di, mono-K phos mono (K-PHOS NEUTRAL) 250 mg tablet 2 tablet 2 tablet oral PRN Parul R Jeb, INDEPENDENT LIVING INSTRUCTOR-AUDIO VISUAL PRODUCTION SPECIALIST sodium chloride 0.9 % infusion 10 mL/hr intravenous Continuous PRN Parul R Jeb, INDEPENDENT LIVING INSTRUCTOR-AUDIO VISUAL PRODUCTION SPECIALIST sodium chloride 0.9 % infusion 10 mL/hr intravenous Continuous PRN Parul R Jeb, INDEPENDENT LIVING INSTRUCTOR-AUDIO VISUAL PRODUCTION SPECIALIST sodium chloride 0.9 % infusion 10 mL/hr intravenous Continuous PRN Parul R Jeb, INDEPENDENT LIVING INSTRUCTOR-AUDIO VISUAL PRODUCTION SPECIALIST Home Meds: Prior to Admission medications Medication Sig Start Date End Date Taking? Authorizing Provider ascorbic acid, vitamin C, (VITAMIN C) 1000 mg tablet Take 1 tablet (1,000 mg total) by mouth in the morning. Not In System Ref Prov aspirin 81 mg chewable tablet Chew 1 tablet (81 mg total) and swallow in the morning. 02/16/23 Sunny Tran PA-C azelastine (OPTIVAR) 0.05 % ophthalmic solution 1 drop in the morning and 1 drop before bedtime. Not In System Ref Prov calcium carbonate (CALCIUM 500 ORAL) Take 500 mg by mouth daily. Tushar Solano Jr., DO calcium citrate 250 mg calcium tablet TAKE 2 TABLETS BY MOUTH EVERY DAY AT NOON 11/25/22 Not In System Ref Prov cholecalciferol, vitamin D3, 125 mcg (5,000 unit) tablet,disintegrating 125 mcg daily. 08/06/21 Not In System Ref Prov clopidogreL (PLAVIX) 75 mg tablet Take 1 tablet (75 mg total) by mouth in the morning. 02/16/23 Sunny Tran PA-C cyanocobalamin (vitamin B-12) 1000 MCG tablet Take 1 tablet (1,000 mcg total) by mouth in the morning. Not In System Ref Prov DULoxetine (CYMBALTA) 30 mg capsule Take 1 capsule (30 mg total) by mouth in the morning. Not In System Ref Prov famotidine (PEPCID) 20 mg tablet Take 2 tablets (40 mg total) by mouth in the evening. Tushar Solano Jr., DO ferrous sulfate 325 (65 FE) mg tablet Take 1 tablet (325 mg total) by mouth daily with breakfast. Not In System Ref Prov ibandronate (BONIVA) 150 mg tablet Take 1 tablet (150 mg total) by mouth every 30 (thirty) days. Take in AM with glass of water prior to food, don't lie down for 60 minutes. Not In System Ref Prov ipratropium (ATROVENT) 21 mcg (0.03 %) nasal spray as needed. 11/13/22 Not In System Ref Prov liothyronine (CYTOMEL) 5 MCG tablet Take 2 tablets (10 mcg total) by mouth in the morning. Not In System Ref Prov metoprolol succinate XL (TOPROL XL) 25 mg 24 hr tablet Take 0.5 tablets (12.5 mg total) by mouth daily as needed (for BP more than 160 mmHg). 03/19/23 Wil Boyce APRN-SUNIL midodrine (PROAMATINE) 5 mg tablet Take 1 tablet (5 mg total) by mouth 3 (three) times a day. prn Not In System Ref Prov montelukast (SINGULAIR) 10 mg tablet Take 1 tablet (10 mg total) by mouth in the morning. 11/14/22 Not In System Ref Prov multivitamin (THERAGRAN) tablet Take 1 tablet by mouth in the morning. Not In System Ref Prov nitroglycerin (NITROSTAT) 0.[address] 1 tablet (0.4 mg total) under the tongue every 5 (five) minutes as needed for chest pain. 02/16/23 Sunny Tran PA-C ondansetron (ZOFRAN) 4 mg tablet Take 1 tablet (4 mg total) by mouth every 8 (eight) hours as needed for nausea or vomiting. Not In System Ref Prov pantoprazole (PROTONIX) 40 mg EC tablet Take 1 tablet (40 mg total) by mouth in the morning. 30 MINS BEFORE BREAKFAST. Tushar Solano Jr., DO pregabalin (LYRICA) 50 mg capsule Take 1 capsule (50 mg total) by mouth in the morning and 1 capsule (50 mg total) before bedtime. 12/07/22 Not In System Ref Prov ranolazine (RANEXA) 1,000 mg 12 hr tablet Take 1 tablet (1,000 mg total) by mouth in the morning and 1 tablet (1,000 mg total) before bedtime. 03/05/23 Keturah Hull MD rimegepant (NURTEC ODT) 75 mg tablet,disintegrating Dissolve 75 mg on tongue in the morning. prn. Not In System Ref Prov rosuvastatin (CRESTOR) 20 mg tablet Take 1 tablet (20 mg total) by mouth in the morning. Not In System Ref Prov sucralfate (CARAFATE) 1 gram tablet Take 1 tablet (1 g total) by mouth in the morning and at bedtime. 08/06/21 Not In System Ref Prov torsemide (DEMADEX) 20 mg tablet Take 1 tablet (20 mg total) by mouth daily. prn Not In System Ref Prov traZODone (DESYREL) 150 mg tablet Take 150 mg by mouth nightly. Tushar Solano Jr., Social History: TOBACCO: reports that she has never smoked. She has never used smokeless tobacco. ETOH: reports no history of alcohol use. DRUGS: reports no history of drug use. OCCUPATION: Family History: Family History Problem Relation Age of Onset Arrhythmia Mother Coronary artery disease Mother Heart attack Mother Heart attack Father OBJECTIVE LAST LABS: Lipid Panel: Lab Results Component Value Date CHOL 101 (L) 02/15/2023 TRIG 98 02/15/2023 HDL 54 02/15/2023 Liver Panel: No results found for: ALB HgA1C: Lab Results Component Value Date HGBA1C 5.6 09/05/2014 ABG: CV HISTORY: ECHO: Echo complete W/O contrast Result Date: 01/22/2023 Left Ventricle: Systolic function is moderately decreased with an ejection fraction of 35-40%. Grade I diastolic dysfunction (impaired relaxation) is present. Lateral E' is 9.79 cm/s. Medial E' is 4.68 cm/s. Right Ventricle: Systolic function is mildly to moderately reduced. Abnormal tricuspid annular plane systolic excursion. Aortic Valve: The aortic valve is probable bicuspid with raphe- fusion of right and left cusps. There is mild sclerosis. There is mild regurgitation with eccentrically directed jet. There is no evidence of aortic valve stenosis. STRESS: No results found. HOLTER: No results found. CARDIAC CATH: Cardiac catheterization Result Date: 02/15/2023 High-grade ISR within previously placed stent in the distal circumflex and treatment with 3 x 12 drug-eluting stent post dilated with 3.5 by 12 noncompliant balloon Patent CHURCH to LAD however small caliber CHURCH, chronic finding Patent vein graft to the distal right coronary artery with severe degenerative disease possible thrombus . Distal right coronary artery has diffuse disease in small caliber vessel not amenable to percutaneous coronary intervention. Occluded LAD, occluded right coronary artery Recommendation Dual antiplatelet therapy including aspirin and Plavix plaque should be continued indefinitely given significant disease in [place] coronary arteries. Optimize medical therapy for coronary artery disease. Post percutaneous coronary intervention orders Remove sheath 2.5 hours after stopping Angiomax drip. Family updated Percutaneous coronary intervention Result Date: 02/15/2023 High-grade ISR within previously placed stent in the distal circumflex and treatment with 3 x 12 drug-eluting stent post dilated with 3.5 by 12 noncompliant balloon Patent CHURCH to LAD however small caliber CHURCH, chronic finding Patent vein graft to the distal right coronary artery with severe degenerative disease possible thrombus . Distal right coronary artery has diffuse disease in small caliber vessel not amenable to percutaneous coronary intervention. Occluded LAD, occluded right coronary artery Recommendation Dual antiplatelet therapy including aspirin and Plavix plaque should be continued indefinitely given significant disease in [place] coronary arteries. Optimize medical therapy for coronary artery disease. Post percutaneous coronary intervention orders Remove sheath 2.5 hours after stopping Angiomax drip. Family updated CAROTID: Vas carotid duplex bilateral Result Date: 10/06/2023 Previous: Previous carotid duplex exam performed [...] previous report no significant changes were noted. Vas carotid duplex bilateral Result Date: 02/06/2023 Previous: Previous carotid duplex exam performed 09/05/2014. Bilateral: <50% ICA stenosis. Right: Plaque with no significant ICA spectral Doppler or color flow disturbances; ICA 99/38 cm/sec. Antegrade vertebral artery flow. Left: Plaque with no significant ICA spectral Doppler or color flow disturbances; ICA 115/33 cm/sec. Antegrade vertebral artery flow. Conclusions: BILATERAL: Plaque without significant stenosis (<50%) of the internal carotid artery. Antegrade vertebral artery flow. When compared to previous report no significant changes were noted. CXR: No results found. EKG: pending TELEMETRY: sinus PHYSICAL EXAM Admission Weight: Weight: 67.8 kg (149 lb 7.6 oz) No intake/output data recorded. Weight change: Wt Readings from Last 3 Encounters: 10/12/23 67.8 kg (149 lb 7.6 oz) 05/19/23 65 kg (143 lb 6.4 oz) 03/05/23 63.1 kg (139 lb 3.2 oz) Vitals: Vitals: 10/12/232 BP: (!) 130/91 Pulse: 99 Resp: (!) 34 SpO2: 96% Weight: 67.8 kg (149 lb 7.6 oz) Admit Weight Weight: 67.8 kg (149 lb 7.6 oz) Last 3 Weights Last 3 Weight Readings 10/12/232241 Weight: 67.8 kg (149 lb 7.6 oz) Body mass index is 27.34 kg/m . INTAKE/OUTPUT No intake/output data recorded. No intake or output data in the 24 hours ending 10/12/23 2349 General appearance: Alert oriented and cooperative, in no acute distress Skin: Warm and dry to touch Head: Normocephalic, without obvious abnormality, atraumatic Eyes: Conjunctivae unremarkable, intact, sclera non icteric Neck: neck supple, trachea midline Lungs: Crackles bases Heart:: RRR with normal S1 and S2 , no murmurs and no gallops. Extremities: trace edema Neurologic: Oriented to time, person and place, affect appropriate, no focal/major motor or sensory defects noted Psychiatric: Appropriate mood, memory and judgment ASSESSMENT/PLAN Acute on chronic HFrEF Elevated HS troponin 21080 ASCVD h/o CABG and s/p PCI Cx 03/05 Ischemic cardiomyopathy EF 35-40% Hypokalemia Chronic hypotension on midodrine Dyslipidemia Trend troponins Recheck electrolytes IV diuresis Continue Heparin gtt Continue DAPT Unable to titrate GDMT given HOTN Recheck echo CHER RINCON APRN-CNP 10/13/23 0016 [facility] I, LENNY Rodriguez MD, personally performed the face to face diagnostic evaluation on this patient. My findings are as follows: . History of Present Illness: 67 y.o. female with history of heart failure admitted with worsening shortness of breath, nausea/vomiting and diarrhea Found to be hypokalemic Allergies: Allergies Allergen Reactions Aspirin-Dipyridamole aggronox Atorvastatin Hives lipitor Cefadroxil duricef Codeine Fenofibrate Micronized tricor Fluvoxamine luvox Nefazodone serzone Niacin Other reaction(s): Intolerance-unknown Hospital Meds: Current Facility-Administered Medications Medication Dose Route Frequency Provider Last Rate Last Admin aspirin chewable tablet 81 mg 81 mg oral Daily CHER Rincon calcium gluconate IVPB 1000 mg/50 mL (20 mg/mL premix) 1,000 mg intravenous PRN CHER Rincon Or calcium gluconate IVPB 2000 mg/100 mL (20 mg/mL premix) 2,000 mg intravenous PRN CHER Rincon Or calcium gluconate 3,000 mg in sodium chloride 0.9 % 100 mL IVPB 3,000 mg intravenous PRN CHER Rincon clopidogreL (PLAVIX) tablet 75 mg 75 mg oral Daily Parul R Jeb, INDEPENDENT LIVING INSTRUCTOR-AUDIO VISUAL PRODUCTION SPECIALIST dextrose (GLUTOSE) 40 % gel 15 g 15 g oral PRN Parul Hassann, INDEPENDENT LIVING INSTRUCTOR-AUDIO VISUAL PRODUCTION SPECIALIST dextrose 5 % (D5W) infusion 100 mL/hr intravenous Continuous PRN Parul Hassann, INDEPENDENT LIVING INSTRUCTOR-AUDIO VISUAL PRODUCTION SPECIALIST dextrose 50 % in water (D50W) 50% solution 25 mL 25 mL intravenous PRN Parul Holder Jeb, INDEPENDENT LIVING INSTRUCTOR-AUDIO VISUAL PRODUCTION SPECIALIST glucagon HCL injection 1 mg 1 mg intramuscular PRN Parul Holder Jeb, INDEPENDENT LIVING INSTRUCTOR-AUDIO VISUAL PRODUCTION SPECIALIST heparin (porcine) injection 2,000 Units 2,000 Units intravenous PRN Parul R Jeb, INDEPENDENT LIVING INSTRUCTOR-AUDIO VISUAL PRODUCTION SPECIALIST heparin infusion 13216 units/500 mL in 0.45% NaCl (50 units/mL premix) 300-3,500 Units/hr intravenous Continuous Parul R Jeb, INDEPENDENT LIVING INSTRUCTOR-AUDIO VISUAL PRODUCTION SPECIALIST 16 mL/hr at 10/13/23 0013 800 Units/hr at 10/13/23 0013 magnesium sulfate IVPB 2000 mg/50 mL in iso-osmotic water (40 mg/mL premix) 2,000 mg intravenous PRN Parul R Jeb, INDEPENDENT LIVING INSTRUCTOR-AUDIO VISUAL PRODUCTION SPECIALIST Or magnesium sulfate IVPB 4000 mg/100 mL in iso-osmotic water (40 mg/mL premix) 4,000 mg intravenous PRN Parul Hassann, INDEPENDENT LIVING INSTRUCTOR-AUDIO VISUAL PRODUCTION SPECIALIST midodrine (PROAMATINE) tablet 5 mg 5 mg oral Q8H PRN Parul Holder Jeb, INDEPENDENT LIVING INSTRUCTOR-AUDIO VISUAL PRODUCTION SPECIALIST potassium chloride (K-TAB,KLOR-CON) CR tablet 20-50 mEq 20-50 mEq oral PRN Parul R Jeb, INDEPENDENT LIVING INSTRUCTOR-AUDIO VISUAL PRODUCTION SPECIALIST Or potassium chloride (KAYCIEL) 20 mEq/15 mL solution 20-50 mEq 20-50 mEq oral PRN Parul R Jeb, INDEPENDENT LIVING INSTRUCTOR-AUDIO VISUAL PRODUCTION SPECIALIST potassium chloride IVPB 10 mEq/50 mL in water (0.2 mEq/mL premix) 10 mEq intravenous PRN Parul R Jeb, INDEPENDENT LIVING INSTRUCTOR-AUDIO VISUAL PRODUCTION SPECIALIST Or potassium chloride IVPB 10 mEq/100 mL in water (0.1 mEq/mL premix) 10 mEq intravenous PRN Parul R Jeb, INDEPENDENT LIVING INSTRUCTOR-AUDIO VISUAL PRODUCTION SPECIALIST ranolazine (RANEXA) 12 hr tablet 1,000 mg 1,000 mg oral BID Parul Mcdowellfern, INDEPENDENT LIVING INSTRUCTOR-AUDIO VISUAL PRODUCTION SPECIALIST rosuvastatin (CRESTOR) tablet 20 mg 20 mg oral Daily Parul R Jeb, INDEPENDENT LIVING INSTRUCTOR-AUDIO VISUAL PRODUCTION SPECIALIST sodium phosphate 20 mmol in sodium chloride 0.9 % 250 mL IVPB 20 mmol intravenous PRN Parul R Jeb, INDEPENDENT LIVING INSTRUCTOR-AUDIO VISUAL PRODUCTION SPECIALIST Or sodium phosphate 20 mmol in sodium chloride 0.9 % 100 mL IVPB 20 mmol intravenous PRN Parul R Jeb, INDEPENDENT LIVING INSTRUCTOR-AUDIO VISUAL PRODUCTION SPECIALIST Or sod phos di, mono-K phos mono (K-PHOS NEUTRAL) 250 mg tablet 2 tablet 2 tablet oral PRN Parul R Jeb, INDEPENDENT LIVING INSTRUCTOR-AUDIO VISUAL PRODUCTION SPECIALIST sodium chloride 0.9 % infusion 10 mL/hr intravenous Continuous PRN Parul R Jeb, INDEPENDENT LIVING INSTRUCTOR-AUDIO VISUAL PRODUCTION SPECIALIST sodium chloride 0.9 % infusion 10 mL/hr intravenous Continuous PRN Parul R Jeb, INDEPENDENT LIVING INSTRUCTOR-AUDIO VISUAL PRODUCTION SPECIALIST sodium chloride 0.9 % infusion 10 mL/hr intravenous Continuous PRN Parul R Jeb, INDEPENDENT LIVING INSTRUCTOR-AUDIO VISUAL PRODUCTION SPECIALIST Laboratory CBC: BMP: Troponin I Physical Exam Vital Signs: BP 139/90 Pulse 98 Resp 14 Wt 67.8 kg (149 lb 7.6 oz) SpO2 94% BMI 27.34 kg/m O2 Flow Rate (L/min): 2 L/min General appearance: Alert oriented and cooperative, in no acute distress, pleasant Skin: Warm and dry to touch Lungs: Bilateral diminished Heart:: RRR with Normal S1 and S2, no murmurs and no gallops Extremities: Trace edema PLAN 1. Acute on chronic heart failure with reduced ejection fraction 2. Ischemic cardiomyopathy with ejection fraction of 35-40% 3. ASCVD status post CABG without angina --left heart catheterization 02/2023 --on Ranexa --aspirin/Plavix 4. Hypokalemia 5 history of CVA 6. Primary hypertension with midodrine also prescribed 7. Hyperlipidemia --rosuvastatin LENNY Rodriguez MD This note was completed using a voice agricultural purchasing agent system. Every effort was made to ensure accuracy. However, inadvertent computerized agricultural purchasing agent errors may be present. documented in this encounter [facility] 10-14-2023 Nurse Note Adjusted CathPCI Bleeding Event Risk Patient's Risk 1.8% National Average 3.3% as of February, In the [place], the average bleeding event risk for all patients undergoing this procedure is 3.3%. Taking into account the patient s specific clinical condition, the statistical estimate that the patient may experience a bleeding event is 1.8%. This means that for every 100 patients having a similar clinical makeup, there would be 1.8 that experienced a bleeding event. Bleeding Event is an absolute drop in hemoglobin ? 4g/dL, a RBC transfusion and/or a procedural intervention/surgery to reverse/stop bleeding that occurs within 72 hours of the PCI procedure. The model provides an objective risk-adjusted estimate of bleeding which has real value for both patient and provider. It should be considered as one element in the evaluation process, to be considered along with the other traditional factors that determine whether the patient is an appropriate candidate for the procedure. [facility] 10-13-2023 Plan of care note Problem: Pain Goal: Patient goal is pain score less than 4, able to rest, and participant in treatment plan as appropriate Description: INTERVENTIONS: 1. Encourage patient or legal merchandiser retail representative to report early pain and ask for pain medicine when needed 2. Assess pain using appropriate pain scale and include the scale used when documenting 3. Administer analgesics based on type and severity of pain and evaluate response within appropriate time frame 4. Implement non-pharmacological measures as appropriate and evaluate response 5. Consider cultural and social influences on pain and pain management 6. Notify LIP if interventions ineffective or patient reports new pain 7. Monitor vital signs including pulse ox, end-tidal CO2 based on pain intervention 8. Reassess pain per policy 9. Teach patient or legal merchandiser retail representative interventions for comforting Outcome: Progressing Note: Evaluation of progress towards goal: Pain assessed using 0-10 pain scale. Pain medication administered as needed. Patient denies pain at this time. Problem: Safety Goal: Patient will be injury free during hospitalization Description: INTERVENTIONS: 1. Assess patient's risk for falls and implement fall prevention plan of care per policy 2. Provide and maintain a safe environment 3. Proper use of double Identifiers 4. Medication administration using the 5 rights 5. Hand hygiene 6. Specimens are labeled at the bedside 7. Instruct patient/ patient merchandiser retail representative about use of safety devices 8. Include patient/ patient merchandiser retail representative in decisions related to safety Outcome: Progressing Note: Evaluation of progress towards goal: Area clear of hazards. Bed locked and in lowest position. Side rails up. Double identifiers and five rights utilized for medication administration. Pt remains free from injury at this time. Problem: Infection Goal: Absence of infection during hospitalization Description: Interventions: 1. Assess and monitor for signs and symptoms of infection 2. Monitor lab/diagnostic results 3. Monitor all insertion sites i.e., indwelling lines, tubes and drains 4. Monitor endotracheal (as able) and nasal secretions for changes in amount and color 5. Administer medications as ordered 6. Instruct and encourage patient and family to use good hand hygiene technique 7. Identify and instruct patient/patient merchandiser retail representative in use of appropriate isolation precautions for identified infection/symptoms 8. Provide and discuss with patient/patient merchandiser retail representative on educational MDRO sheet 9. Encourage and monitor nutritional status daily and consult title coordinator if indicated 10. Implement neutropenic guidelines as needed 11. Review exposure to history of communicable disease and recent travel history on admission 12. Encourage annual influenza vaccine 13. Encourage pneumonia vaccine Outcome: Progressing Note: Evaluation of progress towards goal: Patient afebrile and WBC of 5.3. Will continue to monitor for signs of infection Problem: Knowledge Deficit Goal: Patient/patient merchandiser retail representative demonstrates understanding of disease process, treatment plan, medications, and discharge instructions Description: INTERVENTIONS 1. Complete learning assessment and assess knowledge base 2. Provide teaching at level of understanding 3. Provide teaching via preferred learning method(s) Outcome: Progressing Note: Evaluation of progress towards goal: Education provided at appropriate level of understanding. Pt demonstrated understanding of education provided. Problem: Discharge Planning Goal: Discharge to post-acute care, other facility, or home with appropriate resources Description: Patient's goal is: INTERVENTIONS 1. Conduct assessment to determine patient/family and health care team treatment goals, and need for post-acute services based on payer coverage, community resources, and patient preferences, and barriers to discharge 2. Coordinate with Social work, Care Navigation, and Utilization Review to arrange appropriate level of services according to patient's needs based on patient preference and payer coverage in collaboration with the physician and health care team 3. Address psychosocial, clinical, and financial barriers to discharge as identified in assessment in conjunction with the patient/family and health care team 4. Consult appropriate ancillary services (i.e.. PT/OT/ST, etc) as needed 5. Communicate with and update the patient/family, physician, and health care team regarding progress on the discharge plan 6. Identify discharge learning needs (meds, wound care, etc). 7. Arrange for needed discharge transportation as appropriate Outcome: Progressing Note: Evaluation of progress towards goal: Pt to remain in CICU at this time. Problem: Activity Intolerance/Impaired Mobility Goal: Mobility/activity is maintained at optimum level for patient Description: Patient's goal is: INTERVENTIONS 1. Assess and monitor patient barriers to mobility and need for assistive/adaptive devices 2. Assess patient's emotional response to limitations 3. Collaborate with interdisciplinary teams and initiate plans and interventions as ordered 4. Encourage independent activity per tolerance 5. Maintain proper body alignment 6. Perform active/passive ROM as tolerated/ordered 7. Coordinate activities to conserve energy 8. Reposition patient 9. Ensure adequate rest/sleep time Outcome: Progressing Note: Evaluation of progress towards goal: Advancing activity as tolerated. Problem: Communication Impairment Goal: Ability to express needs and understand communication Description: INTERVENTIONS 1. Assess patient's communication skills and ability to understand information 2. Provide alternate method of communication if needed i.e. ipad, sign board, pen/paper 3. Collaborate with Speech Therapy to develop effective communication strategies 4. Include patient/patient merchandiser retail representative in decisions related to communication Outcome: Progressing Note: Evaluation of progress towards goal: Patient is able to express needs and communicate. Problem: Potential for Compromised Skin Integrity Goal: Skin integrity is maintained or improved Description: Patient's goal is: INTERVENTIONS 1. Perform initial skin assessment on admission and as needed 2. Turn patient every 2 hours and PRN 3. Relieve pressure to bony prominences 4. Avoid shearing 5. Keep skin clean and dry 6. Alternate a full bath with partial baths for elderly 7. Encourage use of lotion/moisturizer on skin 8. Monitor patient's hygiene practices 9. Float heels 10. Collaborate with interdisciplinary team and initiate plans and interventions as needed Outcome: Progressing Note: Evaluation of progress towards goal: Skin clean, dry, and intact. Heels elevated off bed. Skin clear at this time. Problem: Potential for Compromised Skin Integrity Goal: Patient's nutritional intake is adequate Description: Patient's goal is: INTERVENTIONS 1. Assess and monitor food intake and supplements, patient food preferences, nausea, vomiting, labs, oral cavity (gums, teeth, tongue, mucosa), proper denture fit, and cultural beliefs 2. Monitor for signs of hypoglycemia and hyperglycemia 3. Collaborate with interdisciplinary team and initiate plan and interventions as ordered 4. Monitor patient's weight 5. Assist patient with meals/food selection 6. Assist patient with eating 7. Allow adequate time for meals 8. Provide pleasant environment during mealtime 9. Increase social contact during mealtimes 10. Plan activities to conserve energy 11. Encourage/perform oral hygiene as appropriate 12. Encourage patient to take dietary supplement as ordered 13. Collaborate with clinical title coordinator 14. Include patient/ patient's merchandiser retail representative in decisions related to nutrition Outcome: Progressing Note: Evaluation of progress towards goal: Collaborating with interdisciplinary team to ensure adequate nutritional intake. Problem: Moderate - High Risk Fall Score Description: Beal Fall Score of =/> 25 or indicated by [facility] Assessment Goal: Patient should be free from fall Description: Interventions: 1. [place] to environment 2. Hourly rounds addressing the 4 P's (Pain, Positioning, Possessions, Potty) 3. Clear area of hazards (spills, clutter, electrical cords, unnecessary equipment) 4. Place equipment (bed & TV controls, call light, phone, urinal) within reach 5. Encourage patient to wear glasses and hearing aides as appropriate 6. Maintain bed in lowest position 7. Lock wheels on bed/wheelchair 8. Provide adequate lighting, including night light 9. Assess need for additional bedding, food/fluids, pain med's prior to sleep/routinely 10. Provide gripper slippers or personal non-skid footwear 11. Teach patient and patient merchandiser retail representative to maintain environment for safety and engage in all aspects of fall prevention program 12. Remind patient to call for help before getting out of bed 13. Initiate bed/chair/exit alarms supportive devices as appropriate, (chair wedge, no-skid floor mat, raised edge mattress, hip protectors) 14. Locate patient bed assignment for optimal visualization 15. Evaluate and identify Safe Patient Handling Equipment needs 16. Provide supervision when out of bed or chair 17. Utilize gait belt as needed to assist with ambulation 18. Place adaptive equipment (cane, walker) within reach 19. Request patient merchandiser retail representative bring adaptive equipment/mobility aids from home or obtain and provide as needed 20. Consult pharmacy regarding effects of med's affecting mobility, cognition, and alternatives 21. Obtain physician order for PT if risk factors associated with mobility are present 22. Obtain physician order for OT as appropriate 23. Utilize diversional activities 24. Educate patient and patient merchandiser retail representative how to maintain a safe environment during visitation times (notify nurse prior to leaving bedside) 25. Consider appropriateness of medical or non-medical reimbursement manager 26. Set up voiding schedule as appropriate (every 2 hours) Outcome: Progressing Note: Evaluation of progress towards goal: Area clear of hazards. Bed locked and in lowest position. Side rails up. Hourly rounding complete. Pt remains free from falls at this time. [facility] 10-13-2023 Plan of care note Problem: Pain Goal: Patient goal is pain score less than 4, able to rest, and participant in treatment plan as appropriate Description: INTERVENTIONS: 1. Encourage patient or legal merchandiser retail representative to report early pain and ask for pain medicine when needed 2. Assess pain using appropriate pain scale and include the scale used when documenting 3. Administer analgesics based on type and severity of pain and evaluate response within appropriate time frame 4. Implement non-pharmacological measures as appropriate and evaluate response 5. Consider cultural and social influences on pain and pain management 6. Notify LIP if interventions ineffective or patient reports new pain 7. Monitor vital signs including pulse ox, end-tidal CO2 based on pain intervention 8. Reassess pain per policy 9. Teach patient or legal merchandiser retail representative interventions for comforting Outcome: Progressing Note: Evaluation of progress towards goal: Pt denies pain at this time. Problem: Safety Goal: Patient will be injury free during hospitalization Description: INTERVENTIONS: 1. Assess patient's risk for falls and implement fall prevention plan of care per policy 2. Provide and maintain a safe environment 3. Proper use of double Identifiers 4. Medication administration using the 5 rights 5. Hand hygiene 6. Specimens are labeled at the bedside 7. Instruct patient/ patient merchandiser retail representative about use of safety devices 8. Include patient/ patient merchandiser retail representative in decisions related to safety Outcome: Progressing Note: Evaluation of progress towards goal: Pt is free from injuries at this time. Problem: Infection Goal: Absence of infection during hospitalization Description: Interventions: 1. Assess and monitor for signs and symptoms of infection 2. Monitor lab/diagnostic results 3. Monitor all insertion sites i.e., indwelling lines, tubes and drains 4. Monitor endotracheal (as able) and nasal secretions for changes in amount and color 5. Administer medications as ordered 6. Instruct and encourage patient and family to use good hand hygiene technique 7. Identify and instruct patient/patient merchandiser retail representative in use of appropriate isolation precautions for identified infection/symptoms 8. Provide and discuss with patient/patient merchandiser retail representative on educational MDRO sheet 9. Encourage and monitor nutritional status daily and consult title coordinator if indicated 10. Implement neutropenic guidelines as needed 11. Review exposure to history of communicable disease and recent travel history on admission 12. Encourage annual influenza vaccine 13. Encourage pneumonia vaccine Outcome: Progressing Note: Evaluation of progress towards goal: Pt is afebrile at this time. Problem: Knowledge Deficit Goal: Patient/patient merchandiser retail representative demonstrates understanding of disease process, treatment plan, medications, and discharge instructions Description: INTERVENTIONS 1. Complete learning assessment and assess knowledge base 2. Provide teaching at level of understanding 3. Provide teaching via preferred learning method(s) Outcome: Progressing Note: Evaluation of progress towards goal: Pt updated on plan of care. Problem: Discharge Planning Goal: Discharge to post-acute care, other facility, or home with appropriate resources Description: Patient's goal is: INTERVENTIONS 1. Conduct assessment to determine patient/family and health care team treatment goals, and need for post-acute services based on payer coverage, community resources, and patient preferences, and barriers to discharge 2. Coordinate with Social work, Care Navigation, and Utilization Review to arrange appropriate level of services according to patient's needs based on patient preference and payer coverage in collaboration with the physician and health care team 3. Address psychosocial, clinical, and financial barriers to discharge as identified in assessment in conjunction with the patient/family and health care team 4. Consult appropriate ancillary services (i.e.. PT/OT/ST, etc) as needed 5. Communicate with and update the patient/family, physician, and health care team regarding progress on the discharge plan 6. Identify discharge learning needs (meds, wound care, etc). 7. Arrange for needed discharge transportation as appropriate Outcome: Progressing Note: Evaluation of progress towards goal: Pt is not ready for discharge at this time. Problem: Moderate - High Risk Fall Score Description: Beal Fall Score of =/> 25 or indicated by [facility] Assessment Goal: Patient should be free from fall Description: Interventions: 1. [place] to environment 2. Hourly rounds addressing the 4 P's (Pain, Positioning, Possessions, Potty) 3. Clear area of hazards (spills, clutter, electrical cords, unnecessary equipment) 4. Place equipment (bed & TV controls, call light, phone, urinal) within reach 5. Encourage patient to wear glasses and hearing aides as appropriate 6. Maintain bed in lowest position 7. Lock wheels on bed/wheelchair 8. Provide adequate lighting, including night light 9. Assess need for additional bedding, food/fluids, pain med's prior to sleep/routinely 10. Provide gripper slippers or personal non-skid footwear 11. Teach patient and patient merchandiser retail representative to maintain environment for safety and engage in all aspects of fall prevention program 12. Remind patient to call for help before getting out of bed 13. Initiate bed/chair/exit alarms supportive devices as appropriate, (chair wedge, no-skid floor mat, raised edge mattress, hip protectors) 14. Locate patient bed assignment for optimal visualization 15. Evaluate and identify Safe Patient Handling Equipment needs 16. Provide supervision when out of bed or chair 17. Utilize gait belt as needed to assist with ambulation 18. Place adaptive equipment (cane, walker) within reach 19. Request patient merchandiser retail representative bring adaptive equipment/mobility aids from home or obtain and provide as needed 20. Consult pharmacy regarding effects of med's affecting mobility, cognition, and alternatives 21. Obtain physician order for PT if risk factors associated with mobility are present 22. Obtain physician order for OT as appropriate 23. Utilize diversional activities 24. Educate patient and patient merchandiser retail representative how to maintain a safe environment during visitation times (notify nurse prior to leaving bedside) 25. Consider appropriateness of medical or non-medical reimbursement manager 26. Set up voiding schedule as appropriate (every 2 hours) Outcome: Progressing Note: Evaluation of progress towards goal: Pt is free from falls at this time. [facility] 10-13-2023 Progress note Formatting of t his note might be different from the original. Pt comfortable. No chest pain. No sob on 2 L ECG without sig ST abn Tr 13 Continues on heparin/DAPT Ionized mg .24 NSTEMI 2. Acute on chronic heart failure Keep NPO as LHC may be considered Supplement mg before diuresing [facility] 10-13-2023 Plan of care note Problem: Pain Goal: Patient goal is pain score less than 4, able to rest, and participant in treatment plan as appropriate Description: INTERVENTIONS: 1. Encourage patient or legal merchandiser retail representative to report early pain and ask for pain medicine when needed 2. Assess pain using appropriate pain scale and include the scale used when documenting 3. Administer analgesics based on type and severity of pain and evaluate response within appropriate time frame 4. Implement non-pharmacological measures as appropriate and evaluate response 5. Consider cultural and social influences on pain and pain management 6. Notify LIP if interventions ineffective or patient reports new pain 7. Monitor vital signs including pulse ox, end-tidal CO2 based on pain intervention 8. Reassess pain per policy 9. Teach patient or legal merchandiser retail representative interventions for comforting Outcome: Progressing Note: Evaluation of progress towards goal: Verbalizes adequate pain scores during shift. Problem: Safety Goal: Patient will be injury free during hospitalization Description: INTERVENTIONS: 1. Assess patient's risk for falls and implement fall prevention plan of care per policy 2. Provide and maintain a safe environment 3. Proper use of double Identifiers 4. Medication administration using the 5 rights 5. Hand hygiene 6. Specimens are labeled at the bedside 7. Instruct patient/ patient merchandiser retail representative about use of safety devices 8. Include patient/ patient merchandiser retail representative in decisions related to safety Outcome: Progressing Note: Evaluation of progress towards goal: Pt remains injury free during shift. Problem: Infection Goal: Absence of infection during hospitalization Description: Interventions: 1. Assess and monitor for signs and symptoms of infection 2. Monitor lab/diagnostic results 3. Monitor all insertion sites i.e., indwelling lines, tubes and drains 4. Monitor endotracheal (as able) and nasal secretions for changes in amount and color 5. Administer medications as ordered 6. Instruct and encourage patient and family to use good hand hygiene technique 7. Identify and instruct patient/patient merchandiser retail representative in use of appropriate isolation precautions for identified infection/symptoms 8. Provide and discuss with patient/patient merchandiser retail representative on educational MDRO sheet 9. Encourage and monitor nutritional status daily and consult title coordinator if indicated 10. Implement neutropenic guidelines as needed 11. Review exposure to history of communicable disease and recent travel history on admission 12. Encourage annual influenza vaccine 13. Encourage pneumonia vaccine Outcome: Progressing Note: Evaluation of progress towards goal: Pt afebrile and no outward signs of infection during shift. Problem: Knowledge Deficit Goal: Patient/patient merchandiser retail representative demonstrates understanding of disease process, treatment plan, medications, and discharge instructions Description: INTERVENTIONS 1. Complete learning assessment and assess knowledge base 2. Provide teaching at level of understanding 3. Provide teaching via preferred learning method(s) Outcome: Progressing Note: Evaluation of progress towards goal: Education regarding treatment plan occurring throughout admission. Problem: Discharge Planning Goal: Discharge to post-acute care, other facility, or home with appropriate resources Description: Patient's goal is: INTERVENTIONS 1. Conduct assessment to determine patient/family and health care team treatment goals, and need for post-acute services based on payer coverage, community resources, and patient preferences, and barriers to discharge 2. Coordinate with Social work, Care Navigation, and Utilization Review to arrange appropriate level of services according to patient's needs based on patient preference and payer coverage in collaboration with the physician and health care team 3. Address psychosocial, clinical, and financial barriers to discharge as identified in assessment in conjunction with the patient/family and health care team 4. Consult appropriate ancillary services (i.e.. PT/OT/ST, etc) as needed 5. Communicate with and update the patient/family, physician, and health care team regarding progress on the discharge plan 6. Identify discharge learning needs (meds, wound care, etc). 7. Arrange for needed discharge transportation as appropriate Outcome: Progressing Note: Evaluation of progress towards goal: Discharge planning in process during admission. Problem: Neurological Deficit Goal: Neurological status is stable or improving Description: Patient's goal is: INTERVENTIONS 1. Complete Neurological assessment as indicated/ordered 2. Initiate measures to prevent increased intracranial pressure 3. Monitor and assess patient's level of consciousness, motor function, sensory function, and level of assistance needed for ADLs 4. Monitor and report changes from baseline 5. Maintain blood pressure and fluid volume within ordered parameters to optimize cerebral perfusion and minimize risk of hemorrhage 6. Monitor labs and diagnostic tests 7. Administer anti-seizure medications as ordered 8. Maintain airway, patient safety and administer oxygen as ordered 9. Monitor patient for seizure activity, document and report duration and description of seizure to LIP 10. If seizure occurs, turn patient to side and suction secretions as needed 11. Reorient patient post seizure 12. Seizure pads on all 4 side rails 13. Instruct patient/family to notify RN of any seizure activity 14. Instruct patient/family to call for assistance with activity based on assessment 15. Utilize bleeding precautions if thrombolytic given Outcome: Progressing Note: Evaluation of progress towards goal: Neurologically intact during shift. Problem: Activity Intolerance/Impaired Mobility Goal: Mobility/activity is maintained at optimum level for patient Description: Patient's goal is: INTERVENTIONS 1. Assess and monitor patient barriers to mobility and need for assistive/adaptive devices 2. Assess patient's emotional response to limitations 3. Collaborate with interdisciplinary teams and initiate plans and interventions as ordered 4. Encourage independent activity per tolerance 5. Maintain proper body alignment 6. Perform active/passive ROM as tolerated/ordered 7. Coordinate activities to conserve energy 8. Reposition patient 9. Ensure adequate rest/sleep time Outcome: Progressing Note: Evaluation of progress towards goal: Mobility at baseline during shift. Problem: Communication Impairment Goal: Ability to express needs and understand communication Description: INTERVENTIONS 1. Assess patient's communication skills and ability to understand information 2. Provide alternate method of communication if needed i.e. ipad, sign board, pen/paper 3. Collaborate with Speech Therapy to develop effective communication strategies 4. Include patient/patient merchandiser retail representative in decisions related to communication Outcome: Progressing Note: Evaluation of progress towards goal: Communication at baseline during shift. Problem: Potential for Aspiration Goal: Patient's risk of aspiration is minimized Description: INTERVENTIONS 1. Assess and monitor vital signs, respiratory status, and labs (WBC) 2. Monitor for signs of aspiration (tachypnea, cough, rales, wheezing, cyanosis, fever) 3. Assess and monitor patient's ability to swallow 4. Place patient up in chair to eat if possible 5. Elevate head of bed 90 degrees to eat if unable to get patient up into chair 6. Supervise patient during oral intake 7. Instruct patient to take small bites 8. Instruct patient to take small single sips when taking liquids 9. Follow patient-specific strategies generated by speech pathologist 10. Complete bedside swallow screen if appropriate and take actions as indicated. 11. Administer prescribed medications and monitor effects Outcome: Progressing Note: Evaluation of progress towards goal: Aspiration risk avoided during shift. Problem: Anxiety Goal: Anxiety is at manageable level Description: Patient's goal is: INTERVENTIONS 1. Assess and monitor patient's anxiety level 2. Monitor for signs and symptoms of anxiety both physical and emotional (heart palpitations, chest pain, shortness of breath, headaches, nausea, feeling jumpy, restlessness, irritable, apprehensive) 3. Reorient/orient patient to unit/surroundings 4. Explain treatment plan 5. Explain tests/procedures prior to initiation 6. Encourage participation in care 7. Encourage verbalization of concerns/fears 8. Assess coping mechanisms 9. Assist in developing anxiety-reducing skills 10. Administer complimentary therapies 11. Manage patient's environment 12. Limit or eliminate stimulants such as caffeine and nicotine 13. Collaborate with ancillary departments 14. Include patient/patient merchandiser retail representative in decisions related to anxiety Outcome: Progressing Note: Evaluation of progress towards goal: Anxiety at baseline during shift. Problem: Inadequate Coping Goal: Demonstrates and verbalizes ability to cope effectively Description: Patient's goal is: INTERVENTIONS 1. Patient is able to verbalize feelings related to emotional state 2. Encourage verbalization of feelings, perceptions, fears, stressors, loss of loved ones 3. Encourage verbalization of problems out of their control 4. Encourage participation in care and self management 5. Inform patient of all treatment/care prior to providing care 6. Collaborate with pastoral/spiritual care, clinical social work therapist, mental health counselor as needed. 7. Instruct patient on diversional activities such as physical activity, distraction, and deep breathing exercises to assist with coping 8. Involve patient's merchandiser retail representative in care Outcome: Progressing Note: Evaluation of progress towards goal: Coping at baseline during shift. Problem: Potential for Compromised Skin Integrity Goal: Skin integrity is maintained or improved Description: Patient's goal is: INTERVENTIONS 1. Perform initial skin assessment on admission and as needed 2. Turn patient every 2 hours and PRN 3. Relieve pressure to bony prominences 4. Avoid shearing 5. Keep skin clean and dry 6. Alternate a full bath with partial baths for elderly 7. Encourage use of lotion/moisturizer on skin 8. Monitor patient's hygiene practices 9. Float heels 10. Collaborate with interdisciplinary team and initiate plans and interventions as needed Outcome: Progressing Note: Evaluation of progress towards goal: No signs of injury during shift. Goal: Patient's nutritional intake is adequate Description: Patient's goal is: INTERVENTIONS 1. Assess and monitor food intake and supplements, patient food preferences, nausea, vomiting, labs, oral cavity (gums, teeth, tongue, mucosa), proper denture fit, and cultural beliefs 2. Monitor for signs of hypoglycemia and hyperglycemia 3. Collaborate with interdisciplinary team and initiate plan and interventions as ordered 4. Monitor patient's weight 5. Assist patient with meals/food selection 6. Assist patient with eating 7. Allow adequate time for meals 8. Provide pleasant environment during mealtime 9. Increase social contact during mealtimes 10. Plan activities to conserve energy 11. Encourage/perform oral hygiene as appropriate 12. Encourage patient to take dietary supplement as ordered 13. Collaborate with clinical title coordinator 14. Include patient/ patient's merchandiser retail representative in decisions related to nutrition Outcome: Progressing Note: Evaluation of progress towards goal: Patient tolerated adequate intake during shift. Problem: Potential for Inadequate Tissue Perfusion - Venous Goal: Tissue perfusion is adequate - venous Description: Patient's goal is: INTERVENTIONS 1. Assess and monitor skin color and temperature, skin integrity, pulses, capillary refill, edema, pain in extremities and Homans' sign 2. Monitor for signs and symptoms (dyspnea, tachypnea, and tachycardia) 3. Encourage ambulation/activity per patient's tolerance and physician order 4. Elevate feet when in chair 5. Encourage patient to do ankle pump exercises 6. Apply anti-embolism stockings/devices as ordered Outcome: Progressing Note: Evaluation of progress towards goal: Tissue perfusion at baseline during shift. Problem: Self Care Deficit Goal: Return ADL status to a safe level of function Description: Patient's goal is: INTERVENTIONS 1. Administer medication as ordered 2. Assess ADL deficits and provide assistive devices as needed 3. Obtain PT/OT consults as needed 4. Assist and instruct patient to increase activity and self care as tolerated Outcome: Progressing Note: Evaluation of progress towards goal: ADL status at baseline during shift. Problem: Moderate - High Risk Fall Score Description: Beal Fall Score of =/> 25 or indicated by [facility] Assessment Goal: Patient should be free from fall Description: Interventions: 1. [place] to environment 2. Hourly rounds addressing the 4 P's (Pain, Positioning, Possessions, Potty) 3. Clear area of hazards (spills, clutter, electrical cords, unnecessary equipment) 4. Place equipment (bed & TV controls, call light, phone, urinal) within reach 5. Encourage patient to wear glasses and hearing aides as appropriate 6. Maintain bed in lowest position 7. Lock wheels on bed/wheelchair 8. Provide adequate lighting, including night light 9. Assess need for additional bedding, food/fluids, pain med's prior to sleep/routinely 10. Provide gripper slippers or personal non-skid footwear 11. Teach patient and patient merchandiser retail representative to maintain environment for safety and engage in all aspects of fall prevention program 12. Remind patient to call for help before getting out of bed 13. Initiate bed/chair/exit alarms supportive devices as appropriate, (chair wedge, no-skid floor mat, raised edge mattress, hip protectors) 14. Locate patient bed assignment for optimal visualization 15. Evaluate and identify Safe Patient Handling Equipment needs 16. Provide supervision when out of bed or chair 17. Utilize gait belt as needed to assist with ambulation 18. Place adaptive equipment (cane, walker) within reach 19. Request patient merchandiser retail representative bring adaptive equipment/mobility aids from home or obtain and provide as needed 20. Consult pharmacy regarding effects of med's affecting mobility, cognition, and alternatives 21. Obtain physician order for PT if risk factors associated with mobility are present 22. Obtain physician order for OT as appropriate 23. Utilize diversional activities 24. Educate patient and patient merchandiser retail representative how to maintain a safe environment during visitation times (notify nurse prior to leaving bedside) 25. Consider appropriateness of medical or non-medical reimbursement manager 26. Set up voiding schedule as appropriate (every 2 hours) Outcome: Progressing Note: Evaluation of progress towards goal: No signs of falls during shift. [facility] 10-12-2023 History and physical note Images from the original note were not included. [facility] [address] [place] [address] HISTORY & PHYSICAL / CONSULT NOTE Ashvin Smart Rene PCP: TUSHAR SOLANO JR, DO Date of Admission: 10/12/2023 Date of Consultation: 10/12/2023 11:49 PM Consult for CHF SUBJECTIVE History of Present Illness: Ashvin Rene is a 67 y.o. 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, prior CVA who presented to OSH with weakness SOB and cough found to be in CHF with proBNP 68354, HS trop 33329, and K 2.1 which was repleted but not rechecked. She has had vomiting past 2 weeks but has been able to take her meds and eat intermittently. States she has had diarrhea for many years. In the past 2 weeks she has had 2 epsiodes of CP- one midsternal sharp episode and on episode of heaviness. She has had intermittent LE edema. She is requiring 2 L NC. CXR with concern for infiltrate and was given ATB but WBC 7 and lactate was not elevated. She was started on Heparin gtt and transferred to [facility]. She states she feels better now and denies CP SOB. Previous Medical History: Past Medical History: Diagnosis Date Angina pectoris ([facility]) Atherosclerosis of coronary artery bypass graft Atherosclerotic heart disease Coronary angioplasty status Coronary artery disease CVA (cerebral vascular accident) ([facility]) Dyspnea Hyperlipidemia Hypertension Hypotension Other chest pain Stroke ([facility]) Previous Surgical History: Past Surgical History: Procedure Laterality Date CARDIAC CATHETERIZATION Cardiac catheterization N/A 02/15/2023 Performed by Star Espinosa MD at [facility] CARDIAC CATH LABS Cardiac catheterization - LV cors w/graft check N/A 10/25/2020 Performed by Alexi Freeman MD at [facility] CARDIAC CATH LABS Coronary angiogram and graft/[place] N/A 02/15/2023 Performed by Star Espinosa MD at [facility] CARDIAC CATH LABS Coronary angiogram and left ventricular gram/pressure + graft/[place] N/A 10/25/2020 Performed by Alexi Freeman MD at [facility] CARDIAC CATH LABS Coronary angiogram and left ventricular gram/pressure + graft/[place] N/A 06/18/2016 Performed by Alexi Freeman MD at [facility] CARDIAC CATH LABS CORONARY ANGIOPLASTY 12/08/2020 orbital atherectomy and 2 HARRY to prox and distal Circ, at [facility] per Dr. Madhav Ugalde CORONARY ARTERY BYPASS GRAFT 09/08/2014 HYSTERECTOMY INSERTION LOOP RECORDER 05/24/2016 Percutaneous coronary angioplasty left circumflex N/A 02/15/2023 Performed by Star Espinosa MD at [facility] CARDIAC CATH LABS Stent drug-eluting left circumflex N/A 02/15/2023 Performed by Star Espinosa MD at [facility] CARDIAC CATH LABS Allergies: Allergies Allergen Reactions Aspirin-Dipyridamole aggronox Atorvastatin Hives lipitor Cefadroxil duricef Codeine Fenofibrate Micronized tricor Fluvoxamine luvox Nefazodone serzone Niacin Other reaction(s): Intolerance-unknown Hospital Meds: Current Facility-Administered Medications Medication Dose Route Frequency Provider Last Rate Last Admin calcium gluconate IVPB 1000 mg/50 mL (20 mg/mL premix) 1,000 mg intravenous PRN Parul R Jeb, INDEPENDENT LIVING INSTRUCTOR-AUDIO VISUAL PRODUCTION SPECIALIST Or calcium gluconate IVPB 2000 mg/100 mL (20 mg/mL premix) 2,000 mg intravenous PRN Parul R Jeb, INDEPENDENT LIVING INSTRUCTOR-AUDIO VISUAL PRODUCTION SPECIALIST Or calcium gluconate 3,000 mg in sodium chloride 0.9 % 100 mL IVPB 3,000 mg intravenous PRN Parul Holder Jeb, INDEPENDENT LIVING INSTRUCTOR-AUDIO VISUAL PRODUCTION SPECIALIST dextrose (GLUTOSE) 40 % gel 15 g 15 g oral PRN Parul Hassann, INDEPENDENT LIVING INSTRUCTOR-AUDIO VISUAL PRODUCTION SPECIALIST dextrose 5 % (D5W) infusion 100 mL/hr intravenous Continuous PRN Parul Holder Jeb, INDEPENDENT LIVING INSTRUCTOR-AUDIO VISUAL PRODUCTION SPECIALIST dextrose 50 % in water (D50W) 50% solution 25 mL 25 mL intravenous PRN Parul Russ, INDEPENDENT LIVING INSTRUCTOR-AUDIO VISUAL PRODUCTION SPECIALIST glucagon HCL injection 1 mg 1 mg intramuscular PRN Parul Russ, INDEPENDENT LIVING INSTRUCTOR-AUDIO VISUAL PRODUCTION SPECIALIST heparin (porcine) injection 2,000 Units 2,000 Units intravenous PRN Parul Hassann, INDEPENDENT LIVING INSTRUCTOR-AUDIO VISUAL PRODUCTION SPECIALIST [START ON 10/13/2023] heparin infusion 47653 units/500 mL in 0.45% NaCl (50 units/mL premix) 300-3,500 Units/hr intravenous Continuous Parul Russ, INDEPENDENT LIVING INSTRUCTOR-AUDIO VISUAL PRODUCTION SPECIALIST magnesium sulfate IVPB 2000 mg/50 mL in iso-osmotic water (40 mg/mL premix) 2,000 mg intravenous PRN Parul R Jeb, INDEPENDENT LIVING INSTRUCTOR-AUDIO VISUAL PRODUCTION SPECIALIST Or magnesium sulfate IVPB 4000 mg/100 mL in iso-osmotic water (40 mg/mL premix) 4,000 mg intravenous PRN Parul R Jeb, INDEPENDENT LIVING INSTRUCTOR-AUDIO VISUAL PRODUCTION SPECIALIST potassium chloride (K-TAB,KLOR-CON) CR tablet 20-50 mEq 20-50 mEq oral PRN Parul R Jeb, INDEPENDENT LIVING INSTRUCTOR-AUDIO VISUAL PRODUCTION SPECIALIST Or potassium chloride (KAYCIEL) 20 mEq/15 mL solution 20-50 mEq 20-50 mEq oral PRN Parul R Jeb, INDEPENDENT LIVING INSTRUCTOR-AUDIO VISUAL PRODUCTION SPECIALIST potassium chloride IVPB 10 mEq/50 mL in water (0.2 mEq/mL premix) 10 mEq intravenous PRN Parul R Jeb, INDEPENDENT LIVING INSTRUCTOR-AUDIO VISUAL PRODUCTION SPECIALIST Or potassium chloride IVPB 10 mEq/100 mL in water (0.1 mEq/mL premix) 10 mEq intravenous PRN Parul R Jeb, INDEPENDENT LIVING INSTRUCTOR-AUDIO VISUAL PRODUCTION SPECIALIST sodium phosphate 20 mmol in sodium chloride 0.9 % 250 mL IVPB 20 mmol intravenous PRN Parul R Jeb, INDEPENDENT LIVING INSTRUCTOR-AUDIO VISUAL PRODUCTION SPECIALIST Or sodium phosphate 20 mmol in sodium chloride 0.9 % 100 mL IVPB 20 mmol intravenous PRN Parul R Jeb, INDEPENDENT LIVING INSTRUCTOR-AUDIO VISUAL PRODUCTION SPECIALIST Or sod phos di, mono-K phos mono (K-PHOS NEUTRAL) 250 mg tablet 2 tablet 2 tablet oral PRN Parul R Jeb, INDEPENDENT LIVING INSTRUCTOR-AUDIO VISUAL PRODUCTION SPECIALIST sodium chloride 0.9 % infusion 10 mL/hr intravenous Continuous PRN Parul R Jeb, INDEPENDENT LIVING INSTRUCTOR-AUDIO VISUAL PRODUCTION SPECIALIST sodium chloride 0.9 % infusion 10 mL/hr intravenous Continuous PRN Parul R Jeb, INDEPENDENT LIVING INSTRUCTOR-AUDIO VISUAL PRODUCTION SPECIALIST sodium chloride 0.9 % infusion 10 mL/hr intravenous Continuous PRN Parul R Jeb, INDEPENDENT LIVING INSTRUCTOR-AUDIO VISUAL PRODUCTION SPECIALIST Home Meds: Prior to Admission medications Medication Sig Start Date End Date Taking? Authorizing Provider ascorbic acid, vitamin C, (VITAMIN C) 1000 mg tablet Take 1 tablet (1,000 mg total) by mouth in the morning. Not In System Ref Prov aspirin 81 mg chewable tablet Chew 1 tablet (81 mg total) and swallow in the morning. 02/16/23 Sunny Tran PA-C azelastine (OPTIVAR) 0.05 % ophthalmic solution 1 drop in the morning and 1 drop before bedtime. Not In System Ref Prov calcium carbonate (CALCIUM 500 ORAL) Take 500 mg by mouth daily. Tushar Solano Jr., DO calcium citrate 250 mg calcium tablet TAKE 2 TABLETS BY MOUTH EVERY DAY AT NOON 11/25/22 Not In System Ref Prov cholecalciferol, vitamin D3, 125 mcg (5,000 unit) tablet,disintegrating 125 mcg daily. 08/06/21 Not In System Ref Prov clopidogreL (PLAVIX) 75 mg tablet Take 1 tablet (75 mg total) by mouth in the morning. 02/16/23 Sunny Tran PA-C cyanocobalamin (vitamin B-12) 1000 MCG tablet Take 1 tablet (1,000 mcg total) by mouth in the morning. Not In System Ref Prov DULoxetine (CYMBALTA) 30 mg capsule Take 1 capsule (30 mg total) by mouth in the morning. Not In System Ref Prov famotidine (PEPCID) 20 mg tablet Take 2 tablets (40 mg total) by mouth in the evening. Tushar Solano Jr., DO ferrous sulfate 325 (65 FE) mg tablet Take 1 tablet (325 mg total) by mouth daily with breakfast. Not In System Ref Prov ibandronate (BONIVA) 150 mg tablet Take 1 tablet (150 mg total) by mouth every 30 (thirty) days. Take in AM with glass of water prior to food, don't lie down for 60 minutes. Not In System Ref Prov ipratropium (ATROVENT) 21 mcg (0.03 %) nasal spray as needed. 11/13/22 Not In System Ref Prov liothyronine (CYTOMEL) 5 MCG tablet Take 2 tablets (10 mcg total) by mouth in the morning. Not In System Ref Prov metoprolol succinate XL (TOPROL XL) 25 mg 24 hr tablet Take 0.5 tablets (12.5 mg total) by mouth daily as needed (for BP more than 160 mmHg). 03/19/23 CHER Mccoy midodrine (PROAMATINE) 5 mg tablet Take 1 tablet (5 mg total) by mouth 3 (three) times a day. prn Not In System Ref Prov montelukast (SINGULAIR) 10 mg tablet Take 1 tablet (10 mg total) by mouth in the morning. 11/14/22 Not In System Ref Prov multivitamin (THERAGRAN) tablet Take 1 tablet by mouth in the morning. Not In System Ref Prov nitroglycerin (NITROSTAT) 0.[address] 1 tablet (0.4 mg total) under the tongue every 5 (five) minutes as needed for chest pain. 02/16/23 Sunny Tran PA-C ondansetron (ZOFRAN) 4 mg tablet Take 1 tablet (4 mg total) by mouth every 8 (eight) hours as needed for nausea or vomiting. Not In System Ref Prov pantoprazole (PROTONIX) 40 mg EC tablet Take 1 tablet (40 mg total) by mouth in the morning. 30 MINS BEFORE BREAKFAST. Tushar Solano Jr., DO pregabalin (LYRICA) 50 mg capsule Take 1 capsule (50 mg total) by mouth in the morning and 1 capsule (50 mg total) before bedtime. 12/07/22 Not In System Ref Prov ranolazine (RANEXA) 1,000 mg 12 hr tablet Take 1 tablet (1,000 mg total) by mouth in the morning and 1 tablet (1,000 mg total) before bedtime. 03/05/23 Keturah Hull MD rimegepant (NURTEC ODT) 75 mg tablet,disintegrating Dissolve 75 mg on tongue in the morning. prn. Not In System Ref Prov rosuvastatin (CRESTOR) 20 mg tablet Take 1 tablet (20 mg total) by mouth in the morning. Not In System Ref Prov sucralfate (CARAFATE) 1 gram tablet Take 1 tablet (1 g total) by mouth in the morning and at bedtime. 08/06/21 Not In System Ref Prov torsemide (DEMADEX) 20 mg tablet Take 1 tablet (20 mg total) by mouth daily. prn Not In System Ref Prov traZODone (DESYREL) 150 mg tablet Take 150 mg by mouth nightly. Tushar Solano Jr., Social History: TOBACCO: reports that she has never smoked. She has never used smokeless tobacco. ETOH: reports no history of alcohol use. DRUGS: reports no history of drug use. OCCUPATION: Family History: Family History Problem Relation Age of Onset Arrhythmia Mother Coronary artery disease Mother Heart attack Mother Heart attack Father OBJECTIVE LAST LABS: Lipid Panel: Lab Results Component Value Date CHOL 101 (L) 02/15/2023 TRIG 98 02/15/2023 HDL 54 02/15/2023 Liver Panel: No results found for: ALB HgA1C: Lab Results Component Value Date HGBA1C 5.6 09/05/2014 ABG: CV HISTORY: ECHO: Echo complete W/O contrast Result Date: 01/22/2023 Left Ventricle: Systolic function is moderately decreased with an ejection fraction of 35-40%. Grade I diastolic dysfunction (impaired relaxation) is present. Lateral E' is 9.79 cm/s. Medial E' is 4.68 cm/s. Right Ventricle: Systolic function is mildly to moderately reduced. Abnormal tricuspid annular plane systolic excursion. Aortic Valve: The aortic valve is probable bicuspid with raphe- fusion of right and left cusps. There is mild sclerosis. There is mild regurgitation with eccentrically directed jet. There is no evidence of aortic valve stenosis. STRESS: No results found. HOLTER: No results found. CARDIAC CATH: Cardiac catheterization Result Date: 02/15/2023 High-grade ISR within previously placed stent in the distal circumflex and treatment with 3 x 12 drug-eluting stent post dilated with 3.5 by 12 noncompliant balloon Patent CHURCH to LAD however small caliber CHURCH, chronic finding Patent vein graft to the distal right coronary artery with severe degenerative disease possible thrombus . Distal right coronary artery has diffuse disease in small caliber vessel not amenable to percutaneous coronary intervention. Occluded LAD, occluded right coronary artery Recommendation Dual antiplatelet therapy including aspirin and Plavix plaque should be continued indefinitely given significant disease in [place] coronary arteries. Optimize medical therapy for coronary artery disease. Post percutaneous coronary intervention orders Remove sheath 2.5 hours after stopping Angiomax drip. Family updated Percutaneous coronary intervention Result Date: 02/15/2023 High-grade ISR within previously placed stent in the distal circumflex and treatment with 3 x 12 drug-eluting stent post dilated with 3.5 by 12 noncompliant balloon Patent CHURCH to LAD however small caliber CHURCH, chronic finding Patent vein graft to the distal right coronary artery with severe degenerative disease possible thrombus . Distal right coronary artery has diffuse disease in small caliber vessel not amenable to percutaneous coronary intervention. Occluded LAD, occluded right coronary artery Recommendation Dual antiplatelet therapy including aspirin and Plavix plaque should be continued indefinitely given significant disease in [place] coronary arteries. Optimize medical therapy for coronary artery disease. Post percutaneous coronary intervention orders Remove sheath 2.5 hours after stopping Angiomax drip. Family updated CAROTID: Vas carotid duplex bilateral Result Date: 10/06/2023 Previous: Previous carotid duplex exam performed [...] previous report no significant changes were noted. Vas carotid duplex bilateral Result Date: 02/06/2023 Previous: Previous carotid duplex exam performed 09/05/2014. Bilateral: <50% ICA stenosis. Right: Plaque with no significant ICA spectral Doppler or color flow disturbances; ICA 99/38 cm/sec. Antegrade vertebral artery flow. Left: Plaque with no significant ICA spectral Doppler or color flow disturbances; ICA 115/33 cm/sec. Antegrade vertebral artery flow. Conclusions: BILATERAL: Plaque without significant stenosis (<50%) of the internal carotid artery. Antegrade vertebral artery flow. When compared to previous report no significant changes were noted. CXR: No results found. EKG: pending TELEMETRY: sinus PHYSICAL EXAM Admission Weight: Weight: 67.8 kg (149 lb 7.6 oz) No intake/output data recorded. Weight change: Wt Readings from Last 3 Encounters: 10/12/23 67.8 kg (149 lb 7.6 oz) 05/19/23 65 kg (143 lb 6.4 oz) 03/05/23 63.1 kg (139 lb 3.2 oz) Vitals: Vitals: 10/12/23 2242 BP: (!) 130/91 Pulse: 99 Resp: (!) 34 SpO2: 96% Weight: 67.8 kg (149 lb 7.6 oz) Admit Weight Weight: 67.8 kg (149 lb 7.6 oz) Last 3 Weights Last 3 Weight Readings 10/12/23 2242 Weight: 67.8 kg (149 lb 7.6 oz) Body mass index is 27.34 kg/m . INTAKE/OUTPUT No intake/output data recorded. No intake or output data in the 24 hours ending 10/12/23 2349 General appearance: Alert oriented and cooperative, in no acute distress Skin: Warm and dry to touch Head: Normocephalic, without obvious abnormality, atraumatic Eyes: Conjunctivae unremarkable, intact, sclera non icteric Neck: neck supple, trachea midline Lungs: Crackles bases Heart:: RRR with normal S1 and S2 , no murmurs and no gallops. Extremities: trace edema Neurologic: Oriented to time, person and place, affect appropriate, no focal/major motor or sensory defects noted Psychiatric: Appropriate mood, memory and judgment ASSESSMENT/PLAN Acute on chronic HFrEF Elevated HS troponin 04915 ASCVD h/o CABG and s/p PCI Cx 03/05 Ischemic cardiomyopathy EF 35-40% Hypokalemia Chronic hypotension on midodrine Dyslipidemia Trend troponins Recheck electrolytes IV diuresis Continue Heparin gtt Continue DAPT Unable to titrate GDMT given HOTN Recheck echo CHER RINCON APRN-CNP 10/13/23 0016 [facility] I, LENNY Rodriguez MD, personally performed the face to face diagnostic evaluation on this patient. My findings are as follows: . History of Present Illness: 67 y.o. female with history of heart failure admitted with worsening shortness of breath, nausea/vomiting and diarrhea Found to be hypokalemic Allergies: Allergies Allergen Reactions Aspirin-Dipyridamole aggronox Atorvastatin Hives lipitor Cefadroxil duricef Codeine Fenofibrate Micronized tricor Fluvoxamine luvox Nefazodone serzone Niacin Other reaction(s): Intolerance-unknown Hospital Meds: Current Facility-Administered Medications Medication Dose Route Frequency Provider Last Rate Last Admin aspirin chewable tablet 81 mg 81 mg oral Daily CHER Rincon calcium gluconate IVPB 1000 mg/50 mL (20 mg/mL premix) 1,000 mg intravenous PRN CHER Rincon Or calcium gluconate IVPB 2000 mg/100 mL (20 mg/mL premix) 2,000 mg intravenous PRN CHER Rincon Or calcium gluconate 3,000 mg in sodium chloride 0.9 % 100 mL IVPB 3,000 mg intravenous PRN CHER Rincon clopidogreL (PLAVIX) tablet 75 mg 75 mg oral Daily CHER Rincon dextrose (GLUTOSE) 40 % gel 15 g 15 g oral PRN CHER Rincon dextrose 5 % (D5W) infusion 100 mL/hr intravenous Continuous PRN CHER Rincon dextrose 50 % in water (D50W) 50% solution 25 mL 25 mL intravenous PRN CHER Rincon glucagon HCL injection 1 mg 1 mg intramuscular PRN CHER Rincon heparin (porcine) injection 2,000 Units 2,000 Units intravenous PRN Parul R Jeb, INDEPENDENT LIVING INSTRUCTOR-AUDIO VISUAL PRODUCTION SPECIALIST heparin infusion 38027 units/500 mL in 0.45% NaCl (50 units/mL premix) 300-3,500 Units/hr intravenous Continuous Parul R Jeb, INDEPENDENT LIVING INSTRUCTOR-AUDIO VISUAL PRODUCTION SPECIALIST 16 mL/hr at 10/13/23 0013 800 Units/hr at 10/13/23 0013 magnesium sulfate IVPB 2000 mg/50 mL in iso-osmotic water (40 mg/mL premix) 2,000 mg intravenous PRN Parul R Jeb, INDEPENDENT LIVING INSTRUCTOR-AUDIO VISUAL PRODUCTION SPECIALIST Or magnesium sulfate IVPB 4000 mg/100 mL in iso-osmotic water (40 mg/mL premix) 4,000 mg intravenous PRN Parul R Jeb, INDEPENDENT LIVING INSTRUCTOR-AUDIO VISUAL PRODUCTION SPECIALIST midodrine (PROAMATINE) tablet 5 mg 5 mg oral Q8H PRN Parul R Jeb, INDEPENDENT LIVING INSTRUCTOR-AUDIO VISUAL PRODUCTION SPECIALIST potassium chloride (K-TAB,KLOR-CON) CR tablet 20-50 mEq 20-50 mEq oral PRN Parul R Jeb, INDEPENDENT LIVING INSTRUCTOR-AUDIO VISUAL PRODUCTION SPECIALIST Or potassium chloride (KAYCIEL) 20 mEq/15 mL solution 20-50 mEq 20-50 mEq oral PRN Parul R Jeb, INDEPENDENT LIVING INSTRUCTOR-AUDIO VISUAL PRODUCTION SPECIALIST potassium chloride IVPB 10 mEq/50 mL in water (0.2 mEq/mL premix) 10 mEq intravenous PRN Parul R Jeb, INDEPENDENT LIVING INSTRUCTOR-AUDIO VISUAL PRODUCTION SPECIALIST Or potassium chloride IVPB 10 mEq/100 mL in water (0.1 mEq/mL premix) 10 mEq intravenous PRN Parul R Jeb, INDEPENDENT LIVING INSTRUCTOR-AUDIO VISUAL PRODUCTION SPECIALIST ranolazine (RANEXA) 12 hr tablet 1,000 mg 1,000 mg oral BID Parul R Jeb, INDEPENDENT LIVING INSTRUCTOR-AUDIO VISUAL PRODUCTION SPECIALIST rosuvastatin (CRESTOR) tablet 20 mg 20 mg oral Daily Parul R Jeb, INDEPENDENT LIVING INSTRUCTOR-AUDIO VISUAL PRODUCTION SPECIALIST sodium phosphate 20 mmol in sodium chloride 0.9 % 250 mL IVPB 20 mmol intravenous PRN Parul R Jeb, INDEPENDENT LIVING INSTRUCTOR-AUDIO VISUAL PRODUCTION SPECIALIST Or sodium phosphate 20 mmol in sodium chloride 0.9 % 100 mL IVPB 20 mmol intravenous PRN Parul R Jeb, INDEPENDENT LIVING INSTRUCTOR-AUDIO VISUAL PRODUCTION SPECIALIST Or sod phos di, mono-K phos mono (K-PHOS NEUTRAL) 250 mg tablet 2 tablet 2 tablet oral PRN Parul R Jeb, INDEPENDENT LIVING INSTRUCTOR-AUDIO VISUAL PRODUCTION SPECIALIST sodium chloride 0.9 % infusion 10 mL/hr intravenous Continuous PRN Paurl Hassann, INDEPENDENT LIVING INSTRUCTOR-AUDIO VISUAL PRODUCTION SPECIALIST sodium chloride 0.9 % infusion 10 mL/hr intravenous Continuous PRN Parul R Jeb, INDEPENDENT LIVING INSTRUCTOR-AUDIO VISUAL PRODUCTION SPECIALIST sodium chloride 0.9 % infusion 10 mL/hr intravenous Continuous PRN Parul R Jeb, INDEPENDENT LIVING INSTRUCTOR-AUDIO VISUAL PRODUCTION SPECIALIST Laboratory CBC: BMP: Troponin I Physical Exam Vital Signs: BP 139/90 Pulse 98 Resp 14 Wt 67.8 kg (149 lb 7.6 oz) SpO2 94% BMI 27.34 kg/m O2 Flow Rate (L/min): 2 L/min General appearance: Alert oriented and cooperative, in no acute distress, pleasant Skin: Warm and dry to touch Lungs: Bilateral diminished Heart:: RRR with Normal S1 and S2, no murmurs and no gallops Extremities: Trace edema PLAN 1. Acute on chronic heart failure with reduced ejection fraction 2. Ischemic cardiomyopathy with ejection fraction of 35-40% 3. ASCVD status post CABG without angina --left heart catheterization 02/2023 --on Ranexa --aspirin/Plavix 4. Hypokalemia 5 history of CVA 6. Primary hypertension with midodrine also prescribed 7. Hyperlipidemia --rosuvastatin LENNY Rodriguez MD This note was completed using a voice agricultural purchasing agent system. Every effort was made to ensure accuracy. However, inadvertent computerized agricultural purchasing agent errors may be present. [employer] Work Phone: 10-12-2023 History of Present illness Narrative Images from the original note were not included. [facility] Significant Event Note I am on-call covering for my group today. I am at [facility]. This patient presented to the ER at [facility]. I was paged, called back promptly, spoke to ER provider, reviewed EMR, discussed case, provided recommendations as detailed below. Subjective: 67 year old patient presented to the ER at [facility] with generalized weakness and malaise and shortness of breath Found to have acute decompensated heart failure with a high sensitivity troponin of over 26,000 Her potassium is 2.1 I am told she is without respiratory distress or neurological deficit or stroke-like symptoms or angina or ST elevations Objective: There were no vitals taken for this visit. 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 History of CABG and subsequent HARRY Profound hypokalemia 2.1 in the ER at [facility] receiving replacements COVID test was negative at [place] [facility] Given profound hypokalemia and risk for spontaneous malignant arrhythmia recommend admission to the ICU or CCU Access transfer team is working on the transfer arrangements and logistics as well as bed availability here at [facility] Recommend to the ER that patient needs to receive ICU dosing oral and IV potassium to replenish her total body potassium depletion She is on torsemide at home and she will need to be on a potassium supplement She will receive anti heart failure therapies while here in [facility] as well as medical therapy for CAD and cardiomyopathy I discussed with ER provider and access transfer team as well as updated the night team covering here at [facility] and the arrangements have been made for patient to be transferred pending the logistics and bed availability Please contact our cardiology service if any changes in patient's status overnight Thank you Jonathan Pizarro DO, FACC, FACOI This note was completed using a voice agricultural purchasing agent system. Every effort was made to ensure accuracy. However, inadvertent computerized agricultural purchasing agent errors may be present. documented in this encounter [facility] 08-22-2023 Telephone encounter Note Patient left message on nurse line [...] a different prescription sent in. [facility] 08-22-2023 Miscellaneous Notes Patient left message on nurse line yesterday [...] prescription sent in. documented in this encounter [facility] 08-21-2023 History of Present illness Narrative Reason for Visit: Established patient: [...] Bilateral FRANCIS/PVR study performed on 05-29-2023 at [facility] showed: FRANCIS is falsely elevated suggesting medial [...] 2-5 bilateral are flexible/reducible. SHOE GEAR EVALUATION: [employer] shoes. X-ray: Foot: 04-08-2023: LEFT FOOT x-rays, [...] decisions I made. 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 Hip surgery was in 2015 and knee surgeries were in 2019. Both surgeries were from a fall. Rates her pain at a 3 today. Pain radiates down the leg and makes herleg feel weak. Has had formal PT and had very little relief, never tried injections. Would like to discuss what can be done with her leg. Date: 06/25/2023 11:28 AM Patient: Ashvin Rene MR#: [id number] : 1955 Age: 67 y.o. Referring Physician: [...] capsule by mouth daily. Ergocalciferol 1.25 MG (68905 UT) capsule Take 1 capsule by mouth [...] 06/25/2023 11:28 AM Patient: Ashvin Rene MR#: [id number] : 1955 Age: 67 y.o. Referring Physician: Self, Self Insurance: Payor: MEDICARE ANTHEM HMO OR PPO / Plan: MEDICARE ANTH HMO OR PPO / Product Type: *NoProduct [...] [x]cane, []bracing Are you followed by a marine specialist? [x] [] Name: Dr. Ryan Gordon Are [...] capsule by mouth daily. Ergocalciferol 1.25 MG (75037 UT) capsule Take 1 capsule by mouth [...] BYPASS Right 2016 HIP FRACTURE [place] Right 2014 GASTRIC BYPASS 2001 HYSTERECTOMY 1979 AORTIC STENT History reviewed. No pertinent family [...] daily., Disp: , Rfl: Ergocalciferol 1.25 MG (60923 UT) capsule, Take 1 capsule by mouth [...] Rfl: No Known Allergies [facility]* Encounter Date Diagnosis Assessment Notes [...] Other Skin wound mate roque was printed [facility] Other 02-02-2022 Note [id number]02-01-2022 NoteEducation Materials Obstetrics and Gynecology Edema Edema [...] fluid you drink (fluid restriction). ? Take kxbn-boi-jpjibth and prescription medicines only as told by [...] provider. Document Revised: 07/03/2018 Document Reviewed: 07/18/2017 [employer] Patient Education ? 2019 Zoom.[facility], [id number] Note [facility] Clinical Discharge Summary PERSON INFORMATION Name ASHVIN RENE Age 65 Years 1955 Sex FEMALE Language Namibian PCP TUSHAR SOLANO JR. Marital Status Med Service Med/Surg Acct# Arrival 08/06/2021 17:10:50 Visit Reason ANEMIA, ELEVATED TROPONIN Acuity LOS 007 15:53 Address: [address] [place] [address] Comment: PROVIDER INFORMATION VITALS INFORMATION Vital Sign [...] Medication List: New Medications [facility], [address] [place] [address] [phone], [phone] ferrous sulfate (ferrous sulfate 325 mg (65 mg elemental iron) oral tablet) 1 tab(s) Oral 2 times aday for 30 Days. Refills: 1. torsemide (torsemide 20 mg oral tablet) 1 tab(s) Oral every other day for 30 Days. [facility] Refills: 1. Medications That Were Updated - Follow Below Instructions Other Medications Updated: fludrocortisone (fludrocortisone 0.1 mg oral tablet) 0.5 tab(s) Oral every day. TAKE IN MORNING MEAL, HOLD IF STANDING BP [id number]. Medications to Continue That Have Not Changed [...] mg oral tablet) potassium chloride (Potassium Chloride (Iyu-Qcep-Ack 10) 10 mEq oral tablet, extended release) [...] range between ( 1.3 and 2.9 ) Kingfisher Abs#: 0.4 x103/mcL -- Normal range between ( 0.0 and 0.8 ) Auto Baso %: 1.0 % -- Normal range between ( 0.2 and 2.0 ) Auto Kingfisher %: 7 % -- Normal range between [...] ( 101 and 111 (more content not included)...[facility], [id number] NoteDATE OF PROCEDURE: 08/10/2021 SURGEON: Noe Reed MD ANESTHESIA: Rony Ordonez MD ([facility]) PREOPERATIVE DIAGNOSIS: GI-bleed. POSTOPERATIVE DIAGNOSES: 1. Normal [...] well. She will be returned to the [address] [place] [address] floor. We will await the pathology results. Noe Reed M.D. JOB #: [id number] CC: Tushar Solano MD [Electronically Signed on: 08/22/2021 08:54 EST] Noe Reed MD [Verified on: 08/22/2021 08:54 EST] Noe Reed MD [Transcribed on: 08/10/2021 12:12 EST] [facility]09-30-2021 Evaluation note* Encounter Date Diagnosis Assessment Notes Treatment Notes Treatment Clinical Notes Mar, Nausea & vomiting (ICD-10 - R11.2) Nausea and vomiting: adult material was printed Mar, Epigastric pain (ICD-10 - R10.13) [facility] Other 05-28-2021 NoteHNO ID: [id number] Author: Jaimee Pierce RN Service: Care Management [...] 08, 2020 TIME: 10:58 AM PAGER/CONTACT #: [phone]21 NoteHNO ID: [id number] Author: Jaimee Pierce RN Service: Care Management [...] 08, 2020 TIME: 9:57 AM PAGER/CONTACT #: [phone] [facility]-27-2021 NoteHNO ID: [id number] Author: Nay Joseph MD Service: ? Author [...] Could not cross stenoses with Finecross or Mamba flex 135 mm microcatheters. 7Fr Telescope guide [...] No further targets for coronary revascularization. 2. penitentiary DAPT STAFF PHYSICIAN: Dirk Joseph MD DATE OF SERVICE: 12/07/2020 TIME OF SERVICE: 6:19 PM (Procedure performed with Dr. Milli Foster and Dr. Erika Kohler)[facility]05-27-2021 NoteProcedure (CATHMN) CLINTONASHVIN ([id number]) 1955 F Date Time Provider Department 12/07/20 NAY JOSEPH During your visit today, we [...] Could not cross stenoses with Finecross or [employer]ba flex 135 mm microcatheters. 7Fr Telescope guide [...] No further targets for coronary revascularization. 2. penitentiary DAPT STAFF PHYSICIAN: Dirk Joseph MD DATE OF SERVICE: 12/07/2020 TIME OF SERVICE: 6:19 PM (Procedure performed with Dr. Milli Foster and Dr. Erika Kohler) Allergies As of Date: 12/07/2020 Noted Allergy Reaction CODEINE 11/24/2020 1 - Mental Status Change 4 - Hives Date Reviewed: 11/24/2020 Reviewed by: Demetra Guadalupe RN - Fully Assessed Primary Visit Diagnosis:Coronary artery disease of [place] artery of [place] heart with stable angina pectoris (HCC) [I25.118] [...] 12/07/2020 Noted Resolved Coronary artery disease of [place] artery of otilio*11/24/2020 S/P CABG (coronary artery bypass graft) [Z95.1] 11/24/2020 Pure hypercholesterolemia [E78.00] (more content not included)... [facility]-2021 NoteHNO ID: [id number] Author: Milli Foster MD Service: Cardiovascular Medicine Author Type: Fellow Type: Procedures Filed: 12/08/2020 12:27 PM Note Text: Ashvin Rene DATE: December 08, 2020 Attending: Dr. Nay Joseph Diagnostic Fellow: Erika Kohler MD Interventional Fellow: Milli Foster MD HISTORY OF PRESENT ILLNESS: Ms. Rene is a 65 year old female with a history of coronary artery disease s/p CABG 2014 (patent SVG-RCA and CHURCH-LAD), hypertension and hyperlipidemia who presents today for [...] across the lesion- we tried with a [employer]ba flex microcatheter which would also not cross [...] Milli Foster MD Fellow, Interventional Cardiology Pager: [phone] 12/08/2020 11:34 [facility]05-14-2021 NoteHNO ID: [id number] Author: Nay Joseph MD Service: ? Author Type: Physician Type: Progress Notes Filed: 11/29/2020 7:54 AM Note Text: [facility] Department of Cardiovascular Medicine SECTION OF INTERVENTIONAL CARDIOLOGY OUTPATIENT VISIT DATE November 23, 2020 OUTPATIENT VISIT TYPE NEW PRIMARY CARE PHYSICIAN: Tushar Solano Jr, DO ([facility]) [address] [place] [address] [place] [address] REFERRING PHYSICIAN: Waqas Mabry MD [address] [place] [address] [facility] [id number] CHIEF COMPLAINT: No chief complaint on file. HISTORY OF PRESENT ILLNESS: Ms. Rene is a 65 year old female who presents today for second opinion regarding severe CAD. History detailed below. In brief: CRFs: HTN, lipids, FHx 2014 - PCI at [facility] - no information (liklely mid LAD based upon subsequent angiogram) 2015 - CABG x 2 at OSH - CHURCH to LAD, SVG to RCA 2016 - two heart attacks and a stroke per patient, leading to catheterization and loop recorder placement. 2016 - catheterization at OSH reportedly showing atretic CHURCH (CHURCH is NOT atretic by my review of [...] segment. RCA - mid diffuse 100% occlusion CHURCH to LAD - CHURCH is widely patent. LAD is 100% occluded [...] resolved after CABG) 2016 CVA and (?) DC 05/24/16 Echo ? Normal left ventricular end-diastolic [...] bypass grafts are patent. With a atretic CHURCH to the LAD that fills a very [...] area of anterior/anterolateral (more content not included)... [facility]04-29-2021 Miscellaneous Notes* Telephone Encounter - Ashvin Diaz - 11/09/2020 10:10 AM EDT Patient: Ashvin Rene Date of : 1955 Patient phone number: [phone] Referring Provider for the encounter: Dr Waqas Mabry Requesting Provider: Cardiology Reason for requesting visit (RFV/signs and symptoms/diagnosis): 2nd Opinion - Severe CAD Person calling: caregiver: ERIC Return call to: self Medical Records/Insurance Card scanned into [employer]: Yes Comments: N/A [facility] noteNo InformationNort Zaarly Other Evaluation noteNo assessment information available [facility] Work Phone: Evaluation note* Diagnosis Left knee pain, unspecified chronicity- Primary [facility] Diagnosis 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* Diagnosis Decompensated heart failure (CMS-HCC)- Primary NSTEMI (non-ST elevated myocardial infarction) (CMS-HCC) Acute myocardial infarction, subendocardial infarction, episode of care unspecified Decompensated heart failure (CMS-HCC) NSTEMI (non-ST elevated myocardial infarction) (CMS-HCC) Acute myocardial infarction, subendocardial infarction, episode of care unspecified NSTEMI (non-ST elevated myocardial infarction) ([facility]-HCC) Acute myocardial infarction, subendocardial infarction, episode of care unspecified documented in this encounter [facility] SystemHistory general Narrative - Reported* Type Description Date Medical History Cholesterol Medical History heart disease Medical History hypertension Surgical History left hip Surgical History stomach Surgical History heart stent Surgical History bypass Surgical History gastric bypass Hospitalization History see above [facility] Other InstructionsNot on filedocumented in this encounter [facility]Not on filedocumented in this encounter [facility] HospitalReason for referral (narrative)* Consultation (Routine) - Pending Review Specialty Diagnoses / Procedures Referred By Teofilo serrato Referred To Contact Cardiology Diagnoses NSTEMI (non-ST elevated myocardial infarction) ([facility]-HCC) Decompensated heart failure ([facility]-HCC) Kallie Roman MD [address] [facility] [place] [address] [facility] Cardiology [address] [place] [address] Referral ID Status Reason Start Date Expiration Date Visits Requested Visits Authorized [id number] Pending Review Specialty Services Required 10/15/2023 10/14/2024 1 1 * Misc (Routine) - Pending Review Specialty Diagnoses / Procedures Referred By Contac t Referred To Contact Procedures Discharge Follow-Up Kallie Roman MD [address], [address] [place] [phone] Referral ID Status Reason Start Date Expiration Date V isits Requested Visits Authorized [id number] Pending Review 10/15/2023 10/14/2024 1 1 * Misc (Routine) - Pending Review Specialty Diagnoses / Procedures Referred By Contac t Referred To Contact Diagnoses NSTEMI (non-ST elevated myocardial infarction) ([facility]-HCC) Decompensated heart failure ([facility]-HCC) Procedures Follow-up with primary care provider Kallie Roman MD [address], [address] [place] [address] Referral ID Status Reason Start Date Expiration Date V isits Requested Visits Authorized [id number] Pending Review 10/15/2023 10/14/2024 1 1 * Misc (Routine) - Pending Review Specialty Diagnoses / Procedures Referred By Contac t Referred To Contact Procedures No dressing needed Kallie Roman MD [address], [address] [place] [address] Referral ID Status Reason Start Date Expiration Date V isits Requested Visits Authorized [id number] Pending Review 10/15/2023 10/14/2024 1 1 * Misc (Routine) - Pending Review Specialty Diagnoses / Procedures Referred By Contac t Referred To Contact Procedures Adult diet Kallie Roman MD [address], [address] [place] [address] Referral ID Status Reason Start Date Expiration Date V isits Requested Visits Authorized [id number] Pending Review 10/15/2023 10/14/2024 1 1 [facility] Advance Directives No Advanced Directives Records Found Advance Directive Response Recorded Date/ Time Advance Directives No June 11:08am Latest Code Status on File Code Status Date Activated Date Inactivated Comments Full Code 10/12/2023 11:33 PM 10/15/2023 5:33 PM Chief Complaint and Reason for Visit Chief [...] worsening of your eyesight. Please call your rfp writer during normal business hours. If after business hours call Dr. Deng Humphreys at his cell [phone] or his office [phone]. Summary Purpose Reason for Referral Specialty Diagnoses / Procedures Referred By Teofilo serrato Referred To Contact Diagnoses Stenosis of left carotid artery Procedures Vas carotid duplex bilateral Mariama Veras MD [facility] [employer], [address] [place] [address] [address] Phone: [phone] Referral ID Status Reason Start Date Expiration Date Visits Re quested Visits Authorized [id number] Closed 10/06/2023 10/05/2024 1 1 Specialty Diagnoses / Procedures Referred By Teofilo serrato Referred To Contact Diagnoses Left knee pain, unspecified chronicity Norman Braga MD [address] [place] [phone] Referral ID Status Reason Start Date Expiration Date V isits Requested Visits Authorized [id number] New Request 06/25/2023 07/19/2024 1 1 Scheduling Instructions . Specialty Diagnoses / Procedures Referred By Teofilo serrato Referred To Contact Diagnoses Left knee pain, unspecified chronicity Procedures XR KNEE LEFT 4+ VIEWS Norman Braga MD [address] [place] [phone] Referral ID Status Reason Start Date Expiration Date V isits Requested Visits Authorized [id number] Pending Review 06/18/2023 07/12/2024 1 1 Specialty Diagnoses / Procedures Referred By Teofilo serrato Referred To Contact Diagnoses Left knee pain, unspecified chronicity Procedures XR BONE LENGTH STUDY Norman Braga MD [address] [place] [address] Referral ID Status Reason Start Date Expiration Date V isits Requested Visits Authorized [id number] Pending Review 06/18/2023 07/12/2024 1 1 Additional Source Comments Source Comments (unrecognize d section and content) In the event this informatio n is protected by the Federal Confidentiality of Alcohol and Drug Abuse Patient Records regulations: The Federal rules restrict any use of the information to criminally investigate or prosecute any alcohol or drug abuse patient[facility] Reason for Visit (unrecogniz ed section and content) Reason Comments External Referrals/resources Specialty Diagnoses / Procedures Referred By Contac t Referred To Contact Diagnoses Left knee pain, unspecified chronicity Procedures XR BONE LENGTH STUDY Norman Braga MD [address] [place] [address] Referral ID Status Reason Start Date Expiration Date V isits Requested Visits Authorized [id number] Pending Review 06/18/2023 07/12/2024 1 1 Reason Comments Pain Reason Onset Date Comments Santyl 08/22/2023 Specialty Diagnoses / Procedures Referred By Contac t Referred To Contact Diagnoses Decompensated heart failure (CMS-HCC) CHF (congestive heart failure) (CMS-HCC) Decompensated Heart Failure, Severe Hypokalemia Jonathan Pizarro DO [address] [place] [address] Referral ID Status Reason Start Date Expiration Date Visits Re quested Visits Authorized [id number] 1 1 INFORMATION SOURCE (unrecogn ized section and content) DATE CREATED AUTHOR 03/12/2021 [facility] DATE CREATED AUTHOR AUTHOR'S ORGANIZ ATION 08/13/2021 [facility] DATE CREATED AUTHOR AUTHOR'S ORGANIZ ATION 09/26/2021 [facility] DATE CREATED AUTHOR AUTHOR'S ORGANIZ ATION 10/20/2022 [facility] DATE CREATED AUTHOR AUTHOR'S ORGANIZ ATION 07/04/2023 [facility] DATE CREATED AUTHOR AUTHOR'S ORGANIZ ATION 08/20/2023 [facility] DATE CREATED AUTHOR AUTHOR'S ORGANIZ ATION 08/22/2023 [facility] EPIC DATE CREATED AUTHOR AUTHOR'S ORGANIZ ATION 10/16/2023 [facility] DATE CREATED AUTHOR AUTHOR'S ORGANIZ ATION 10/18/2023 [facility] DATE CREATED AUTHOR AUTHOR'S ORGANIZ ATION 10/25/2023 [facility] Care Teams (unrecognized sec tion and [...] Provider Active ZAC Renae Attending Provider Active 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 Start Date End Date Tushar Solano Jr., DO [address] [place] [address] PCP - General Internal Medicine 05/28/23 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 Start Date End Date Tushar Solano Jr., DO [address] [place] [address] PCP - General Internal Medicine 05/28/23 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 Start Date End Date Tushar Solano MD [address] [place] [address] PCP - General Internal Medicine 04/08/23 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 Start Date End Date Tushar Solano MD [address] [place] [id number] PCP - General Internal Medicine 04/08/23 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 Start Date End Date Tushar Solano MD [address] [place] [id number] PCP - General Internal Medicine 04/08/23 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 Start Date End Date Tushar Solano Jr., DO [address] [place] [id number] PCP - General Internal Medicine 05/24/16 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 Start Date End Date Tushar Solano Jr., DO [address] [place] [address] [id number] PCP - General Internal Medicine 05/24/16 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 Start Date End Date Tushar Solano Jr., DO [address] [place] [address] [phone] PCP - General Internal Medicine 05/24/16 Goals (unrecognized section and content) Goals may be documented in a n alternate section Scheduled Active and Recently Administ ered Medications (unrecognized section and content) Medication Order 10/13/2023 10/14/2023 10/15/2023 aspirin chewable tablet 81 mg 81 mg, oral, Daily, First dose on Fri10/13/23 at 0900 0830 (Given - Provider: Gely Chua RN) 0729 (SEP Hold - Provider: Automatic Transfer Provider - Reason: Patient not available)0900 (Dose Auto Held - Provider: Automatic Transfer Provider)0917 (MAR Unhold - Provider: Automatic Transfer Provider) 0958 (Given - Provider: David Florez RN) bisoprolol (ZEBETA) tablet 5 mg 5 mg, oral, Daily, First dose on Fri10/14/23 at 1115, Look-alike/sound-alike medication - verify indication for use. 1332 (Given - Provider: Gely Chua RN) 0959 (Given - Provider: David Florez, MICAH) clopidogreL (PLAVIX) tablet 75 mg 75 mg, oral, Daily, First dose on Fri10/13/23 at 0900, Look-alike/sound-alike medication - verify indication for use. 0831 (Given - Provider: Gely Chua RN) 0729 (MAR Hold - Provider: Automatic Transfer Provider - Reason: Patient not available)0900 (Dose Auto Held - Provider: Automatic Transfer Provider)0917 (MAR Unhold - Provider: Automatic Transfer Provider)1021 (Given - Provider: Gely Chua RN) 0958 (Given - Provider: David Florez, MICAH) collagenase (SANTYL) ointment 1 Application 1 Application, topical, Daily, First dose on Fri10/13/23 at 1500, Apply to thigh wound . 2034 (Given - Provider: Jolene Almaguer, MICAH) 0729 (MAR Hold - Provider: Automatic Transfer Provider - Reason: Patient not available)0900 (Dose Auto Held - Provider: Automatic Transfer Provider)0917 (MAR Unhold - Provider: Automatic Transfer Provider) 1000 (Given - Provider: David Florez RN) dapagliflozin propanediol (FARXIGA) tablet 10 mg 10 mg, oral, Daily, First dose on Fri10/15/23 at 1130 1225 (Given - Provider: David Florez RN) furosemide (LASIX) injection 40 mg (CANCELED) 40 mg, intravenous, Every 12 hours, First dose on Fri10/13/23 at 1630, Look-alike/sound-alike medication - verify indication for use. IVP rate = 20 mg/min 1703 (Given - Provider: Gely Chua RN) 0347 (Given - Provider: Jolene Almaguer, MICAH)0729 (MAR Hold - Provider: Automatic Transfer Provider - Reason: Patient not available)0917 (MAR Unhold - Provider: Automatic Transfer Provider) furosemide (LASIX) tablet 40 mg (CANCELED) 40 mg, oral, 2 times daily before meals, First dose on Fri10/13/23 at 1600, Look-alike/sound-alike medication - verify indication for use. 1611 (Given - Provider: Gely Chua RN) magnesium sulfate IVPB 2000 mg/50 mL in iso-osmotic water (40 mg/mL premix) 2,000 mg, intravenous, at 25 mL/hr, Administer over 120 Minutes, Once, On Fri10/13/23 at 0830, For 1 dose, Infuse each gram over 60 minutes. 0830 (Canceled Entry - Provider: Gely Chua RN) 0729 (MAR Hold - Provider: Automatic Transfer Provider - Reason: Patient not available)0917 (MAR Unhold - Provider: Automatic Transfer Provider) metoprolol succinate XL (TOPROL XL) 24 hr tablet 25 mg (CANCELED) 25 mg, oral, Daily, First dose on Fri10/13/23 at 1630, Look-alike/sound-alike medication - verify indication for use. Do not crush or chew. 1805 (Given - Provider: Gely Chua RN) 0729 (MAR Hold - Provider: Automatic Transfer Provider - Reason: Patient not available)0900 (Dose Auto Held - Provider: Automatic Transfer Provider)0917 (MAR Unhold - Provider: Automatic Transfer Provider)1024 (Given - Provider: Gely Chua RN) potassium chloride (K-TAB,KLOR-CON) CR tablet 60 mEq (CANCELED) 60 mEq, oral, Daily, First dose on Fri10/13/23 at 1200, Do not crush or chew. 1226 (Given - Provider: Mary Mccoy RN) ranolazine (RANEXA) 12 hr tablet 1,000 mg 1,000 mg, oral, 2 times daily, First dose on Fri10/13/23 at 0030, Look-alike/sound-alike medication - verify indication for use. Swallow whole-do not crush or chew. Avoid grapefruit products. 0111 (Given - Provider: Sae Santiago, RN)0832 (Given - Provider: Gely Chua RN)2034 (Given - Provider: Jolene Almaguer, MICAH) 0729 (MAR Hold - Provider: Automatic Transfer Provider - Reason: Patient not available)0900 (Dose Auto Held - Provider: Automatic Transfer Provider)0917 (MAR Unhold - Provider: Automatic Transfer Provider)1023 (Given - Provider: Gely Chua RN)2158 (Given - Provider: Sae Santiago RN) 0958 (Given - Provider: David Florez RN) rosuvastatin (CRESTOR) tablet 20 mg 20 mg, oral, Daily, First dose on Fri10/13/23 at 0900, Look-alike/sound-alike medication - verify indication for use. 0831 (Given - Provider: Gely Chua RN) 0729 (SEP Hold - Provider: Automatic Transfer Provider - Reason: Patient not available)0900 (Dose Auto Held - Provider: Automatic Transfer Provider)0917 (MAR Unhold - Provider: Automatic Transfer Provider)1023 (Given - Provider: Gely Chua RN) 0958 (Given - Provider: David Florez, RN) sacubitriL-valsartan (ENTRESTO) 24-26 mg per tablet 1 tablet 1 tablet, oral, 2 times daily, First dose on Fri10/16/23 at 0900, Look-alike/sound-alike medication - verify indication for use. sodium chloride 0.9 % flush 3 mL (CANCELED) 3 mL, intravenous, Every 12 hours, First dose on Fri10/14/23 at 0915, Pre-Procedure (CV) 0915 (Given - Provider: Gely Chua RN) sodium chloride 0.9 % flush 3 mL 3 mL, intravenous, Every 12 hours, First dose on Fri10/14/23 at 0915 0915 (Given - Provider: Gely Chua RN)2100 (Canceled Entry - Provider: Sae Santiago RN) 0730 (Given - Provider: David Florez, MICAH) spironolactone (ALDACTONE) tablet 25 mg 25 mg, oral, Daily, First dose on Fri10/13/23 at 1145, Hold for SBP<100 1227 (Given - Provider: Mary Mccoy RN) 0729 (SEP Hold - Provider: Automatic Transfer Provider - Reason: Patient not available)0900 (Dose Auto Held - Provider: Automatic Transfer Provider)0917 (MAR Unhold - Provider: Automatic Transfer Provider)1024 (Given - Provider: Gely Chua RN) 0958 (Given - Provider: David Florez, MICAH) valsartan (DIOVAN) tablet 40 mg (CANCELED) 40 mg, oral, Daily, First dose on Fri10/14/23 at 1115, Look-alike/sound-alike medication - verify indication for use. 1332 (Given - Provider: Gely Chua RN) 0958 (Given - Provider: David Florez RN) Continuous Medication Order 10/13/2023 10/14/2023 10/15/2023 heparin infusion 37511 units/500 mL in 0.45% NaCl (50 units/mL premix) (CANCELED) 300-3,500 Units/hr (6-70 mL/hr), intravenous, Continuous, Starting on Fri10/13/23 at 0000, Please titrate from initial infusion rate listed above. MAXIMUM initial infusion: 1000 units/hr Heparin Low Intensity Infusion (Cardiology) Heparin Adjustment Table: Anti-Xa Therapeutic Goal: 0.3 - 0.7 IU/mL Anti-Xa results (IU/mL): Ant-Xa every 6 hours after dosage adjustment until therapeutic x 2 then every AM -less than 0.1 IU/mL: bolus 2000 units, increase rate by 150 units/hr (3 mL/hr), next Anti-Xa in 6 hrs. -0.1 - 0.29 IU/mL: increase rate by 100 units/hr (2 mL/hr), next Anti-Xa in 6 hours. -0.3 - 0.7 IU/mL: Therapeutic level: next Anti-Xa in 6 hours then every AM. -0.71 - 0.8 IU/mL: decrease rate by 50 units/hr (1 mL/hr), next Anti-Xa in 6 hours. -0.81 - 1.6 IU/mL: stop infusion for 30 minutes, decrease rate by 100 units/hr (2 mL/hr), next Anti-Xa in 6 hours. -1.61 - 2 IU/mL: stop infusion for 60 minutes, decrease rate by 150 units/hr (3 mL/hr), next Anti-Xa in 6 hours. - Greater than 2 IU/mL: stop infusion for 90 minutes, decrease rate by 250 units/hr (5 mL/hr), next Anti-Xa in 6 hours. Monitor for signs of bleeding. Look-alike/sound-alike medication - verify indication for use., Indication: Unstable Angina/Non-STEMI, INITIAL Infusion Dose (Units/hr): 800 units/hr 0013 (New Bag - Provider: Sae Santiago RN)0822 (Rate/Dose Change - Provider: Gely Chua RN)0823 (Rate/Dose Verify - Provider: Gely Chua RN)0927 (Paused - Provider: Gely Chua RN)0930 (Restarted - Provider: Gely Chua RN)1834 (Rate/Dose Verify - Provider: Gely Chua RN)1911 (Handoff - Provider: Gely Chua RN)2142 (Rate/Dose Change - Provider: Jolene Almaguer RN) 0351 (New Bag - Provider: Jolene Almaguer RN)0649 (Rate/Dose Verify - Provider: Jolene Almaguer RN)0729 (SEP Hold - Provider: Automatic Transfer Provider - Reason: Unreviewed Transfer Orders)0734 (Stop Bag - Provider: Gely Chua RN)0852 (SEP Unhold - Provider: Wil Boyce APRN-AUDIO VISUAL PRODUCTION SPECIALIST)0900 (Stop Bag - Provider: Gely Chua RN - Comment: 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) PRN Medication Order 10/13/2023 10/14/2023 10/15/2023 acetaminophen (TYLENOL) tablet 650 mg 650 mg, oral, Every 4 hours PRN, headaches, mild pain - pain scale 1-3, moderate pain - pain scale 4-6, Starting on Fri10/13/23 at 0153 0251 (Given - Provider: Sae Santiago RN) 0119 (Given - Provider: Jolene Almaguer RN)0729 (SEP Hold - Provider: Automatic Transfer Provider - Reason: Patient not available)0917 (SEP Unhold - Provider: Automatic Transfer Provider) acetaminophen (TYLENOL) tablet 650 mg 650 mg, oral, Every 4 hours PRN, mild pain - pain scale 1-3, headaches, Starting on Fri10/14/23 at 0913 2158 (Given - Provider: Sae Santiago RN) 0432 (Given - Provider: Sae Santiago RN) aspirin chewable tablet (CANCELED) Code/trauma/sedation medication, Starting on Fri10/14/23 at 0737, Intra-Procedure (CV) 0737 (Given - Provider: Tonia Jalloh RN) calcium gluconate 3,000 mg in sodium chloride 0.9 % 100 mL IVPB(Linked Group 1) 3,000 mg, intravenous, at 130 mL/hr, Administer over 60 Minutes, As needed, for ionized calcium level less than 3 mg/dL, Starting on 10/12/23 at 2321, CALL PHYSICIAN if this dose is administered. Recheck ionized calcium 6 hours after infusion. Hold calcium replacement for phosphorus greater than 5.5 mg/dL. VESICANT (RED) 0635 (See Alternative - Provider: Sae Santiago RN)0735 (See Alternative - Provider: Gely Chua RN)1659 (See Alternative - Provider: Gely Chua RN)1759 (See Alternative - Provider: Gely Chua RN) 0046 (See Alternative - Provider: Jolene Almaguer RN)0146 (See Alternative - Provider: Jolene Almaguer, RN)0729 (SEP Hold - Provider: Automatic Transfer Provider - Reason: Patient not available)0917 (SEP Unhold - Provider: Automatic Transfer Provider)1333 (See Alternative - Provider: Gely Chua RN)1433 (See Alternative - Provider: Gely Chua RN)2255 (See Alternative - Provider: Sae Santiago, RN)2355 (See Alternative - Provider: Sae Santiago RN) calcium gluconate IVPB 1000 mg/50 mL (20 mg/mL premix)(Linked Group 1) 1,000 mg, intravenous, at 50 mL/hr, Administer over 60 Minutes, As needed, for ionized calcium level 3.5 to 4.4 mg/dL, Starting on 10/12/23 at 2321, Recheck ionized calcium 6 hours after infusion. Hold calcium replacement for phosphorus greater than 5.5 mg/dL. VESICANT (RED) 0635 (New Bag - Provider: Sae Santiago RN)0735 (Stop Bag - Provider: Gely Chua RN)1659 (New Bag - Provider: Gely Chua RN)1759 (Stop Bag - Provider: Gely Chua RN) 0046 (New Bag - Provider: Jolene Almaguer, MICAH)0146 (Stop Bag - Provider: Jolene Almaguer, MICAH)0729 (SEP Hold - Provider: Automatic Transfer Provider - Reason: Patient not available)0917 (SEP Unhold - Provider: Automatic Transfer Provider)1333 (New Bag - Provider: Gely Chua RN)1433 (Stop Bag - Provider: Gely Chua RN)2255 (New Bag - Provider: Sae Santiago RN)2355 (Stop Bag - Provider: Sae Santiago, RN) calcium gluconate IVPB 2000 mg/100 mL (20 mg/mL premix)(Linked Group 1) 2,000 mg, intravenous, at 100 mL/hr, Administer over 60 Minutes, As needed, for ionized calcium level 3 to 3.4 mg/dL, Starting on 10/12/23 at 2321, Recheck ionized calcium 6 hours after infusion. Hold calcium replacement for phosphorus greater than 5.5 mg/dL. VESICANT (RED) 0635 (See Alternative - Provider: Sae Santiago RN)0735 (See Alternative - Provider: Gely Chua, MICAH)1659 (See Alternative - Provider: Gely Chua, RN)1759 (See Alternative - Provider: Gely Chua, MICAH) 0046 (See Alternative - Provider: Jolene Almaguer, MICAH)0146 (See Alternative - Provider: Jolene Almaguer, MICAH)0729 (MAR Hold - Provider: Automatic Transfer Provider - Reason: Patient not available)0917 (MAR Unhold - Provider: Automatic Transfer Provider)1333 (See Alternative - Provider: Gely Chua RN)1433 (See Alternative - Provider: Gely Chua, MICAH)2255 (See Alternative - Provider: Sae Santiago RN)2355 (See Alternative - Provider: Sae Santiago, MICAH) dextrose (GLUTOSE) 40 % gel 15 g 15 g, oral, As needed, low blood sugar, blood glucose less than 70 mg/dL, Starting on 10/12/23 at 2321, If patient conscious and taking PO. If blood glucose is not greater than 70 mg/dL after initial treatment, repeat treatment. 0729 ([facility] Hold - Provider: Automatic Transfer Provider - Reason: Patient not available)0917 ([facility] Unhold - Provider: Automatic Transfer Provider) dextrose 5 % (D5W) infusion 100 mL/hr, intravenous, Continuous PRN, blood glucose less than 70 mg/dL, Starting on 10/12/23 at 2321, Use immediately following dextrose 50% or glucagon treatment for patients who are unconscious or NPO. Contact prescriber for additional orders. If blood glucose is not greater than 70 mg/dL after initial treatment, repeat treatment. 0729 ([facility] Hold - Provider: Automatic Transfer Provider - Reason: Patient not available)0917 ([facility] Unhold - Provider: Automatic Transfer Provider) dextrose 50 % in water (D50W) 50% solution 25 mL 25 mL, intravenous, As needed, low blood sugar, blood glucose less than 70 mg/dL and unconscious or NPO with IV access, Starting on 10/12/23 at 2321, Push over 1-3 minutes STAT. If conscious and not NPO, immediately follow with meal tray or high protein (7 grams) snack if tray not available. If NPO, initiate 5% dextrose in water at 100 mL/hr and contact prescriber for additional orders. If blood glucose is not greater than 70 mg/dL after initial treatment, repeat treatment. VESICANT (RED) Warning: HYPERTONIC solution. 07 ([facility] Hold - Provider: Automatic Transfer Provider - Reason: Patient not available)09 ([facility] Unhold - Provider: Automatic Transfer Provider) diphenhydrAMINE (BENADRYL) injection 50 mg(Linked Group 2) 50 mg, intravenous, As needed, for previously documented contrast allergy, Starting on Fri10/13/23 at 1118, Scheduling/ADT, Administer one hour prior to procedure Look-alike/sound-alike medication - verify indication for use. 07 ([facility] Hold - Provider: Automatic Transfer Provider - Reason: Patient not available)09 ([facility] Unhold - Provider: Automatic Transfer Provider) fentaNYL (SUBLIMAZE) injection (CANCELED) Code/trauma/sedation medication, Starting on Fri10/14/23 at 0751, Intra-Procedure (CV) 0751 (Given - Provider: Tonia Jalloh RN) glucagon HCL injection 1 mg 1 mg, intramuscular, As needed, low blood sugar, blood glucose less than 70 mg/dL and unconscious or NPO without IV access., Starting on Fri10/12/23 at 2321, If conscious and not NPO, immediately follow with meal tray or high protein (7Grams) snack if tray not available. If NPO, initiate IV 5% Dextrose/Water at 100 mL/hr and contact prescriber for additional orders. If blood glucose is not greater than 70 mg/dL after initial treatment, repeat treatment. 07 ([facility] Hold - Provider: Automatic Transfer Provider - Reason: Patient not available)0917 ([facility] Unhold - Provider: Automatic Transfer Provider) iohexoL (OMNIPAQUE) 350 mg iodine/mL injection (CANCELED) Code/trauma/sedation medication, Starting on Fri10/14/23 at 0842, Intra-Procedure (CV) 0842 (Given - Provider: Alexi Freeman MD) lidocaine PF (XYLOCAINE) 10 mg/mL (1 %) injection (CANCELED) Code/trauma/sedation medication, Starting on Fri10/14/23 at 0806, Intra-Procedure (CV) 0806 (Given - Provider: Alexi Freeman MD) magnesium sulfate IVPB 2000 mg/50 mL in iso-osmotic water (40 mg/mL premix)(Linked Group 3) 2,000 mg, intravenous, at 25 mL/hr, Administer over 120 Minutes, As needed, for magnesium level 1.7 to 1.9 mg/dL or ionized magnesium level 0.45 to 0.5 mmol/L, Starting on Fri10/12/23 at 2321, Use premix solution. Default to ionized magnesium level in cases where patient has both magnesium and ionized magnesium results. If administered, check ionized magnesium (or total magnesium if ionized magnesium unavailable) level 4 hours after infusion. 0519 (See Alternative - Provider: Sae Santiago RN)0919 (See Alternative - Provider: Gely Chua, MICAH) 0521 (New Bag - Provider: Jolene Almaguer RN)0721 (Stop Bag - Provider: Gely Chua RN)0729 (SEP Hold - Provider: Automatic Transfer Provider - Reason: Patient not available)0917 (SEP Unhold - Provider: Automatic Transfer Provider) 0605 (New Bag - Provider: Sae Santiago RN)0805 (Stop Bag - Provider: David Florez RN) magnesium sulfate IVPB 4000 mg/100 mL in iso-osmotic water (40 mg/mL premix)(Linked Group 3) 4,000 mg, intravenous, at 25 mL/hr, Administer over 240 Minutes, As needed, for magnesium level 1.6 mg/mL or less, or ionized magnesium level 0.44 mmol/L or less, Starting on 10/12/23 at 2321, Use premix solution. Default to ionized magnesium level in cases where patient has both magnesium and ionized magnesium results. If administered, check ionized magnesium (or total magnesium if ionized magnesium unavailable) level 4 hours after infusion. 0519 (New Bag - Provider: Sae Pamela, RN)0919 (Stop Bag - Provider: Gely Chua, RN) 0521 (See Alternative - Provider: Jolene Almaguer, RN)0721 (See Alternative - Provider: Gely Chua, RN)0729 ([facility] Hold - Provider: Automatic Transfer Provider - Reason: Patient not available)0917 ([facility] Unhold - Provider: Automatic Transfer Provider) 0605 (See Alternative - Provider: Sae Santiago, RN)0805 (See Alternative - Provider: David Florez, MICAH) midazolam (PF) (VERSED) injection (CANCELED) Code/trauma/sedation medication, Starting on Fri10/14/23 at 0751, Intra-Procedure (CV) 0751 (Given - Provider: Tonia Jalloh, MICAH) midodrine (PROAMATINE) tablet 5 mg 5 mg, oral, Every 8 hours PRN, SBP <100, Starting on Fri10/13/23 at 0014, Look-alike/sound-alike medication - verify indication for use. 07 ([facility] Hold - Provider: Automatic Transfer Provider - Reason: Patient not available)09 ([facility] Unhold - Provider: Automatic Transfer Provider) nitroglycerin (NITROSTAT) disintegrating tablet 0.4 mg 0.4 mg, sublingual, Every 5 min PRN, chest pain, Starting on Fri10/14/23 at 0913, Administer up to 3 doses per episode perflutren lipid microspheres (DEFINITY) dilution injection 1.43 mg/10 mL () 2 mL, intravenous, As needed, contrast, Starting on Fri10/13/23 at 0927, For 6 hours, Additional Imaging Orders, Dilute 1.3 mL of Definity with 8.7mL of 0.9% NaCl in 10 mL syringe Administer 2 mL perflutren (Definity) contrast if 2 contiguous segments of the LV are not well visualized. May repeat 2 mL dose until LV visualization is accomplished. Procedure total dose not to exceed 10 mL. 926 (Given - Provider: John Maldonado RN) potassium chloride (K-TAB,KLOR-CON) CR tablet 20-50 mEq(Linked Group 4) 20-50 mEq, oral, As needed, for potassium replacement, Starting on Fri10/12/23 at 2321, Progress to oral potassium replacement when patient tolerating oral intake. If dose administered, recheck potassium level 4 hours after last dose. For potassium level 3.4 to 3.8 mmol/L and Serum Creatinine 1.2 or less=30 mEq. For potassium level 3.1 to 3.3 mmol/L and Serum Creatinine 1.2 or less=40 mEq. For potassium level 3 mmol/L or less and Serum Creatinine 1.2 or less=50 mEq. For potassium level 3.4 to 3.8 mmol/L and Serum Creatinine greater than 1.2=20 mEq. For potassium level 3.1 to 3.3 mmol/L and Serum Creatinine greater than 1.2=30 mEq. For potassium level 3 mmol/L or less and Serum Creatinine greater than 1.2=40 mEq. Do not crush or chew. 0251 (Given - Provider: Sae Santiago RN)0830 (Given - Provider: Gely Chua, MICAH)1224 (Canceled Entry - Provider: Gely Chua RN) 0729 (SEP Hold - Provider: Automatic Transfer Provider - Reason: Patient not available)0917 (MAR Unhold - Provider: Automatic Transfer Provider) potassium chloride (KAYCIEL) 20 mEq/15 mL solution 20-50 mEq(Linked Group 4) 20-50 mEq, oral, As needed, potassium replacement, Starting on 10/12/23 at 2321, Progress to oral potassium replacement when patient tolerating oral intake. If dose administered, recheck potassium level 4 hours after last dose. For potassium level 3.4 to 3.8 mmol/L and Serum Creatinine 1.2 or less=30 mEq (22.5mL). For potassium level 3.1 to 3.3 mmol/L and Serum Creatinine 1.2 or less=40 mEq (30mL). For potassium level 3 mmol/L or less and Serum Creatinine 1.2 or less=50 mEq (37.5mL). For potassium level 3.4 to 3.8 mmol/L and Serum Creatinine greater than 1.2=20 mEq (15mL). For potassium level 3.1 to 3.3 mmol/L and Serum Creatinine greater than 1.2=30 mEq (22.5mL). For potassium level 3 mmol/L or less and Serum Creatinine greater than 1.2=40 mEq (30mL). Must dilute before use - Mix in 3-8 ounces of water or juice before administration When administering in feeding tube, flush before and after per policy and monitor potassium levels 0251 (See Alternative - Provider: Sae Santiago RN)0830 (See Alternative - Provider: Gely Chua, RN)1224 (See Alternative - Provider: Gely Chua, RN) 0729 ([facility] Hold - Provider: Automatic Transfer Provider - Reason: Patient not available)0917 ([facility] Unhold - Provider: Automatic Transfer Provider) potassium chloride IVPB 10 mEq/100 mL in water (0.1 mEq/mL premix)(Linked Group 5) 10 mEq, intravenous, at 100 mL/hr, Administer over 60 Minutes, As needed, for potassium replacement, Starting on 10/12/23 at 2321, Administer Potassium Chloride IVPB in 10 mEq increments. Maximum infusion rates: Central Line = 20 mEq/hour; Peripheral Line = 10 mEq/hour (10 mEq/100 mL). If dose administered, recheck potassium level 1 hour after infusion complete. For potassium level 3.4 to 3.8 mmol/L and Serum Creatinine 1.2 or less = 30 mEq For potassium level 3.1 to 3.3 mmol/L and Serum Creatinine 1.2 or less = 40 mEq For potassium level 3 mmol/L or less and Serum Creatinine 1.2 or less = 50 mEq For potassium level 3.4 to 3.8 mmol/L and Serum Creatinine greater than 1.2 = 20 mEq For potassium level 3.1 to 3.3 mmol/L and Serum Creatinine greater than 1.2 = 30 mEq For potassium level 3 mmol/L or less and Serum Creatinine greater than 1.2 = 40 mEq VESICANT (YELLOW) Infuse each 10 mEq over a minimum of 1 hour. 0729 ([facility] Hold - Provider: Automatic Transfer Provider - Reason: Patient not available)0917 ([facility] Unhold - Provider: Automatic Transfer Provider) potassium chloride IVPB 10 mEq/50 mL in water (0.2 mEq/mL premix)(Linked Group 5) 10 mEq, intravenous, at 50 mL/hr, Administer over 1 Hours, As needed, for potassium replacement, Starting on 10/12/23 at 2321, Administer Potassium Chloride IVPB in 10 mEq increments. Maximum infusion rates: Central Line = 20 mEq/hour. Administer via Central Line Only. If dose administered, recheck potassium level 1 hour after infusion complete. For potassium level 3.4 to 3.8 mmol/L and Serum Creatinine 1.2 or less = 30 mEq For potassium level 3.1 to 3.3 mmol/L and Serum Creatinine 1.2 or less = 40 mEq For potassium level 3 mmol/L or less and Serum Creatinine 1.2 or less = 50 mEq For potassium level 3.4 to 3.8 mmol/L and Serum Creatinine greater than 1.2 = 20 mEq For potassium level 3.1 to 3.3 mmol/L and Serum Creatinine greater than 1.2 = 30 mEq For potassium level 3 mmol/L or less and Serum Creatinine greater than 1.2 = 40 mEq VESICANT (YELLOW) 0729 ([facility] Hold - Provider: Automatic Transfer Provider - Reason: Patient not available)0917 ([facility] Unhold - Provider: Automatic Transfer Provider) predniSONE (DELTASONE) tablet 50 mg(Linked Group 2) 50 mg, oral, As needed, for pre-medication for previously documented contrast allergy, Starting on Fri10/13/23 at 1118, For 3 doses, Scheduling/ADT, Administer 50 mg at 13 hours, 7 hours, and 1 hour prior to procedure Food-Drug Interaction Education Required May alter blood glucose or insulin requirements Take/give with food Look-alike/sound-alike medication - verify indication for use. 0729 ([facility] Hold - Provider: Automatic Transfer Provider - Reason: Patient not available)0917 ([facility] Unhold - Provider: Automatic Transfer Provider) sod phos di, mono-K phos mono (K-PHOS NEUTRAL) 250 mg tablet 2 tablet(Linked Group 6) 2 tablet, oral, As needed, for phosphorous level 2.3 mg/dL or less, Starting on Fri10/12/23 at 2321, If dose administered, recheck phosphorus level 4 hours after last dose. Look-alike/sound-alike medication - verify indication for use. Give with a full glass of water. 0729 ([facility] Hold - Provider: Automatic Transfer Provider - Reason: Patient not available)0917 ([facility] Unhold - Provider: Automatic Transfer Provider) sodium chloride 0.9 % flush 3 mL 3 mL, intravenous, As needed, line care, before and after each intermittent use, Starting on Fri10/14/23 at 0913 sodium chloride 0.9 % infusion 10 mL/hr, intravenous, Continuous PRN, to maintain patency of lines, Starting on 10/12/23 at 2321, Line #1 0729 ([facility] Hold - Provider: Automatic Transfer Provider - Reason: Patient not available)0917 ([facility] Unhold - Provider: Automatic Transfer Provider) sodium chloride 0.9 % infusion 10 mL/hr, intravenous, Continuous PRN, to maintain patency of lines, Starting on 10/12/23 at 2321, Line #2 0729 ([facility] Hold - Provider: Automatic Transfer Provider - Reason: Patient not available)09 ([facility] Unhold - Provider: Automatic Transfer Provider) sodium chloride 0.9 % infusion 10 mL/hr, intravenous, Continuous PRN, to maintain patency of lines, Starting on 10/12/23 at 2321, Line #3 0729 ([facility] Hold - Provider: Automatic Transfer Provider - Reason: Patient not available)09 ([facility] Unhold - Provider: Automatic Transfer Provider) sodium phosphate 20 mmol in sodium chloride 0.9 % 100 mL IVPB(Linked Group 6) 20 mmol, intravenous, at 26.7 mL/hr, Administer over 4 Hours, As needed, for phosphorous level 2.3 mg/dL or less, Starting on 10/12/23 at 2321, Administer over 4 hours via dedicated line(central line). If administered, recheck phosphorus level 4 hours after infusion complete. Infuse using central line access. 728 ([facility] Hold - Provider: Automatic Transfer Provider - Reason: Patient not available)09 ([facility] Unhold - Provider: Automatic Transfer Provider) sodium phosphate 20 mmol in sodium chloride 0.9 % 250 mL IVPB(Linked Group 6) 20 mmol, intravenous, at 42.8 mL/hr, Administer over 6 Hours, As needed, for phosphorous level 2.3 mg/dL or less, Starting on 10/12/23 at 2321, Administer over 6 hours via dedicated line (peripheral line). If administered, recheck phosphorus level 4 hours after infusion complete. 07 ([facility] Hold - Provider: Automatic Transfer Provider - Reason: Patient not available)09 ([facility] Unhold - Provider: Automatic Transfer Provider) Linked Groups Order Group 1: calcium gluconate IVPB 1000 mg/50 mL (20 mg/mL premix)Jump to med 1,000 mg, intravenous, at 50 mL/hr, Administer over 60 Minutes, As needed, for ionized calcium level 3.5 to 4.4 mg/dL, Starting on 10/12/23 at 2321, Recheck ionized calcium 6 hours after infusion. Hold calcium replacement for phosphorus greater than 5.5 mg/dL. VESICANT (RED) Or calcium gluconate IVPB 2000 mg/100 mL (20 mg/mL premix)Jump to med 2,000 mg, intravenous, at 100 mL/hr, Administer over 60 Minutes, As needed, for ionized calcium level 3 to 3.4 mg/dL, Starting on 10/12/23 at 2321, Recheck ionized calcium 6 hours after infusion. Hold calcium replacement for phosphorus greater than 5.5 mg/dL. VESICANT (RED) Or calcium gluconate 3,000 mg in sodium chloride 0.9 % 100 mL IVPBJump to med 3,000 mg, intravenous, at 130 mL/hr, Administer over 60 Minutes, As needed, for ionized calcium level less than 3 mg/dL, Starting on 10/12/23 at 2321, CALL PHYSICIAN if this dose is administered. Recheck ionized calcium 6 hours after infusion. Hold calcium replacement for phosphorus greater than 5.5 mg/dL. VESICANT (RED) Group 2: predniSONE (DELTASONE) tablet 50 mgJump to med 50 mg, oral, As needed, for pre-medication for previously documented contrast allergy, Starting on Fri10/13/23 at 1118, For 3 doses, Scheduling/ADT, Administer 50 mg at 13 hours, 7 hours, and 1 hour prior to procedure Food-Drug Interaction Education Required May alter blood glucose or insulin requirements Take/give with food Look-alike/sound-alike medication - verify indication for use. And diphenhydrAMINE (BENADRYL) injection 50 mgJump to med 50 mg, intravenous, As needed, for previously documented contrast allergy, Starting on Fri10/13/23 at 1118, Scheduling/ADT, Administer one hour prior to procedure Look-alike/sound-alike medication - verify indication for use. Group 3: magnesium sulfate IVPB 2000 mg/50 mL in iso-osmotic water (40 mg/mL premix)Jump to med 2,000 mg, intravenous, at 25 mL/hr, Administer over 120 Minutes, As needed, for magnesium level 1.7 to 1.9 mg/dL or ionized magnesium level 0.45 to 0.5 mmol/L, Starting on [place] 10/12/23 at 2321, Use premix solution. Default to ionized magnesium level in cases where patient has both magnesium and ionized magnesium results. If administered, check ionized magnesium (or total magnesium if ionized magnesium unavailable) level 4 hours after infusion. Or magnesium sulfate IVPB 4000 mg/100 mL in iso-osmotic water (40 mg/mL premix)Jump to med 4,000 mg, intravenous, at 25 mL/hr, Administer over 240 Minutes, As needed, for magnesium level 1.6 mg/mL or less, or ionized magnesium level 0.44 mmol/L or less, Starting on 10/12/23 at 2321, Use premix solution. Default to ionized magnesium level in cases where patient has both magnesium and ionized magnesium results. If administered, check ionized magnesium (or total magnesium if ionized magnesium unavailable) level 4 hours after infusion. Group 4: potassium chloride (K-TAB,KLOR-CON) CR tablet 20-50 mEqJump to med 20-50 mEq, oral, As needed, for potassium replacement, Starting on [place] 10/12/23 at 2321, Progress to oral potassium replacement when patient tolerating oral intake. If dose administered, recheck potassium level 4 hours after last dose. For potassium level 3.4 to 3.8 mmol/L and Serum Creatinine 1.2 or less=30 mEq. For potassium level 3.1 to 3.3 mmol/L and Serum Creatinine 1.2 or less=40 mEq. For potassium level 3 mmol/L or less and Serum Creatinine 1.2 or less=50 mEq. For potassium level 3.4 to 3.8 mmol/L and Serum Creatinine greater than 1.2=20 mEq. For potassium level 3.1 to 3.3 mmol/L and Serum Creatinine greater than 1.2=30 mEq. For potassium level 3 mmol/L or less and Serum Creatinine greater than 1.2=40 mEq. Do not crush or chew. Or potassium chloride (KAYCIEL) 20 mEq/15 mL solution 20-50 mEqJump to med 20-50 mEq, oral, As needed, potassium replacement, Starting on 10/12/23 at 2321, Progress to oral potassium replacement when patient tolerating oral intake. If dose administered, recheck potassium level 4 hours after last dose. For potassium level 3.4 to 3.8 mmol/L and Serum Creatinine 1.2 or less=30 mEq (22.5mL). For potassium level 3.1 to 3.3 mmol/L and Serum Creatinine 1.2 or less=40 mEq (30mL). For potassium level 3 mmol/L or less and Serum Creatinine 1.2 or less=50 mEq (37.5mL). For potassium level 3.4 to 3.8 mmol/L and Serum Creatinine greater than 1.2=20 mEq (15mL). For potassium level 3.1 to 3.3 mmol/L and Serum Creatinine greater than 1.2=30 mEq (22.5mL). For potassium level 3 mmol/L or less and Serum Creatinine greater than 1.2=40 mEq (30mL). Must dilute before use - Mix in 3-8 ounces of water or juice before administration When administering in feeding tube, flush before and after per policy and monitor potassium levels Group 5: potassium chloride IVPB 10 mEq/50 mL in water (0.2 mEq/mL premix)Jump to med 10 mEq, intravenous, at 50 mL/hr, Administer over 1 Hours, As needed, for potassium replacement, Starting on 10/12/23 at 2321, Administer Potassium Chloride IVPB in 10 mEq increments. Maximum infusion rates: Central Line = 20 mEq/hour. Administer via Central Line Only. If dose administered, recheck potassium level 1 hour after infusion complete. For potassium level 3.4 to 3.8 mmol/L and Serum Creatinine 1.2 or less = 30 mEq For potassium level 3.1 to 3.3 mmol/L and Serum Creatinine 1.2 or less = 40 mEq For potassium level 3 mmol/L or less and Serum Creatinine 1.2 or less = 50 mEq For potassium level 3.4 to 3.8 mmol/L and Serum Creatinine greater than 1.2 = 20 mEq For potassium level 3.1 to 3.3 mmol/L and Serum Creatinine greater than 1.2 = 30 mEq For potassium level 3 mmol/L or less and Serum Creatinine greater than 1.2 = 40 mEq VESICANT (YELLOW) Or potassium chloride IVPB 10 mEq/100 mL in water (0.1 mEq/mL premix)Jump to med 10 mEq, intravenous, at 100 mL/hr, Administer over 60 Minutes, As needed, for potassium replacement, Starting on 10/12/23 at 2321, Administer Potassium Chloride IVPB in 10 mEq increments. Maximum infusion rates: Central Line = 20 mEq/hour; Peripheral Line = 10 mEq/hour (10 mEq/100 mL). If dose administered, recheck potassium level 1 hour after infusion complete. For potassium level 3.4 to 3.8 mmol/L and Serum Creatinine 1.2 or less = 30 mEq For potassium level 3.1 to 3.3 mmol/L and Serum Creatinine 1.2 or less = 40 mEq For potassium level 3 mmol/L or less and Serum Creatinine 1.2 or less = 50 mEq For potassium level 3.4 to 3.8 mmol/L and Serum Creatinine greater than 1.2 = 20 mEq For potassium level 3.1 to 3.3 mmol/L and Serum Creatinine greater than 1.2 = 30 mEq For potassium level 3 mmol/L or less and Serum Creatinine greater than 1.2 = 40 mEq VESICANT (YELLOW) Infuse each 10 mEq over a minimum of 1 hour. Group 6: sodium phosphate 20 mmol in sodium chloride 0.9 % 250 mL IVPBJump to med 20 mmol, intravenous, at 42.8 mL/hr, Administer over 6 Hours, As needed, for phosphorous level 2.3 mg/dL or less, Starting on 10/12/23 at 2321, Administer over 6 hours via dedicated line (peripheral line). If administered, recheck phosphorus level 4 hours after infusion complete. Or sodium phosphate 20 mmol in sodium chloride 0.9 % 100 mL IVPBJump to med 20 mmol, intravenous, at 26.7 mL/hr, Administer over 4 Hours, As needed, for phosphorous level 2.3 mg/dL or less, Starting on 10/12/23 at 2321, Administer over 4 hours via dedicated line(central line). If administered, recheck phosphorus level 4 hours after infusion complete. Infuse using central line access. Or sod phos di, mono-K phos mono (K-PHOS NEUTRAL) 250 mg tablet 2 tabletJump to med 2 tablet, oral, As needed, for phosphorous level 2.3 mg/dL or less, Starting on 10/12/23 at 2321, If dose administered, recheck phosphorus level 4 hours after last dose. Look-alike/sound-alike medication - verify indication for use. Give with a full glass of water. FOR RECORDS PERTAINING TO PATIENTS WHO ARE [...] BE BASED ON THE PRIMARY CLINICAL RECORDS. [facility] [employer] [facility]. provides no warranty or guarantee of the accuracy or completeness of information in this document.
[2023-11-04] MEDS: MORPHINE SULFATE 4 MG/ML VIAL 2 MG IV (02:43)
--- NOTE | 2023-11-04 02:55 | ECG_ITS ---
[facility] Test Date: 2023-11-04 Pat Name: ASHVIN RENE Department: Room: - Gender: Female Mid Wife: : 1955 Requested By: 1030 Order Number: [id number] Reading MD: DIMA DIOP Measurements Intervals [place] Rate: 104 P: 80 MT: 148 QRS: -15 QRSD: 120 T: 73 QT: 350 QTc: 411 Interpretive Statements 1120 Sinus tachycardia 3433 Septal myocardial infarction, probably old 9150 abnormal ECG Electronically Signed On 11-04-2023 18:03:31 EDT by DIMA DIOP
[2023-11-04 03:09] LABS: Anion Gap 21.2; BUN Creatinine Ratio 28.4; Calcium 8.9 mg/dL (8.5-10.1); Carbon Dioxide 20.2 mmol/L (21.0-32.0); Chloride 102 mmol/L (98-107); Estimated GFR (African America 32 (>=60); Estimated GFR (Non-African Ame 26 (>=60); Glucose 141 mg/dL (74-106); Potassium 4.4 mmol/L (3.5-5.1); Sodium 139 mmol/L (136-145)
[2023-11-04] MEDS: ONDANSETRON PF 4 MG/2 ML VIAL IV ×2 (03:15→18:25)
[2023-11-04 03:19] LABS: Basophils Percent Auto 0.4 % (0.2-2.0); Eosinophils Absolute Auto 0.1 10^3/uL (0.0-0.7); Eosinophils Percent Auto 0.9 % (0.9-7.0); Hematocrit 38.3 % (36.0-48.0); Hemoglobin 12.5 g/dL (12.0-16.0); Immature Granulocytes Abs Auto 0.03 10^3/uL (0.00-0.03); Immature Granulocytes Pct Auto 0.3 % (0.0-0.5); Lymphocytes Absolute Auto 2.1 10^3/uL (1.2-3.8); Lymphocytes Percent Auto 20.3 % (20.5-60.0); Mean Corpuscular HGB Conc 32.6 g/dL (29.9-35.2); Mean Corpuscular Hemoglobin 33.6 pg (26.7-34.0); Mean Platelet Volume 10.6 fL (9.5-13.5); Monocytes Absolute Auto 0.8 10^3/uL (0.3-0.8); Monocytes Percent Auto 7.4 % (1.7-12.0); Neutrophils Absolute Auto 7.3 10^3/uL (1.4-6.5); Neutrophils Percent Auto 70.7 % (43.0-75.0); Platelet Count 224 10^3/uL (150-450); Red Blood Count 3.72 10^6/uL (4.20-5.40); Red Cell Distribution Width 12.9 % (11.0-15.0); White Blood Count 10.3 10^3/uL (4.0-11.0)
[2023-11-04] MEDS: 0.9 % SODIUM CHLORIDE 1,000 ML 125 ML IV (03:44)
[2023-11-04 03:47] LABS: Bilirubin Urine NEGATIVE (NEGATIVE); Blood Urine NEGATIVE (NEGATIVE); Clarity Urine CLEAR (CLEAR); Color Urine LT. YELLOW (YELLOW); Glucose Urine UA NEGATIVE (NEGATIVE); Ketones Urine NEGATIVE (NEGATIVE); Leukocyte Esterase Urine NEGATIVE (NEGATIVE); Nitrite Urine NEGATIVE (NEGATIVE); Protein Urine NEGATIVE (NEG/TRACE); Urobilinogen Urine 0.2 EU/dL (0.2-1.0); pH Urine 5.5 (5.0-9.0)
[2023-11-04 03:59] LABS: Bacteria Urine NONE SEEN #/HPF (NONE SEEN); Crystals Seen? None Seen #/HPF (None Seen); Mucus Urine NONE SEEN (NONE SEEN); RBC Urine NONE SEEN #/HPF (0-2); Squamous Epithelial Cell Urine NONE SEEN #/LPF (NONE/RARE); WBC Urine NONE SEEN #/HPF (NONE SEEN)
[2023-11-04 04:00] LABS: Cast Seen? NONE SEEN #/LPF (NONE SEEN); Urine Culture Indicated NO
--- OUTSIDE RECORDS SUMMARY | 2023-11-04 04:43 | XMS_ITS | CCD ---
Author Organization [facility] Care Team Providers Care Progressive Care Manager Name Role Phone Tushar Solano Primary Care Provider UnavailHarriet Gipson Attending Provider Tushar Rodriguez Jr. Primary Care Provider Ana CristinaWaqas yancey Hattie Unavailable Antonio Kim Unavailable [phone] Virginia Marti Unavailable JR Tushar Solano Primary Care Provider ZAC Marti Attending Provider RUSS, DR DE [...] Attending Unavailable VALONE, DR DE Admitting Unavailable [place], DR YARY Burleson Consulting Unavailable Russ Dewey, [...] Unavailable MARIAMA INGRAM Attending Unavailable RUSS JR TUSHAR L Referring Unavailable VALONE JR, TUSHAR L Primary Care Unavailable Unavailable Unavailable Unavailable Allergies Allergy Classification Reported Allergen(s) Allergy Type Date of Onset Reaction(s) Facility (13 sources) atorvastatin; Translations: [atorvastatin] Drug Allergy 06-18-20 16 Hives, [facility] (12 sources) Cefadroxil; Translations: [cefadroxil] Drug Allergy 06-18-20 16 [facility] (14 sources) Codeine; Translations: [Codeine] Drug Allergy 10-12-19 15 Hives, Hallucinations [facility] (3 sources) Dipyridamole; Translations: [dipyridamole] Drug Allergy 05-30-20 21 Unknown Reaction [facility] (6 sources) Fenofibrate; Translations: [fenofibrate] Drug Allergy 06-18-20 16 Other [facility] (12 sources) fluvoxaMINE; Translations: [fluvoxamine] Drug Allergy 06-18-20 16 [facility] (12 sources) nefazodone; Translations: [nefazodone] Drug Allergy 06-18-20 16 [facility] (12 sources) Niacin; Translations: [niacin] Drug Allergy 06-18-20 16 [facility] (6 sources) Simvastatin; Translations: [simvastatin] Drug Allergy 05-30-20 21 [facility] (1 source) Aspirin / Dipyridamole Drug Allergy 07-14-19 13 [facility] (1 source) Cefadroxil Drug Allergy 10-12-19 15 [facility] (1 source) Dextroamphetamine Drug Allergy 10-12-19 15 [facility] (1 source) Fenofibrate Drug Allergy 10-12-19 15 [facility] (1 source) fluvoxaMINE Drug Allergy 10-12-19 15 [facility] (1 source) nefazodone Drug Allergy 10-12-19 15 [facility] (1 source) Niacin Drug Allergy 10-12-19 15 [facility] (1 source) Simvastatin Drug Allergy 10-12-19 15 [facility] (3 sources) Aspirin / Dipyridamole Drug Allergy 04-08-20 23 Other [facility] Work Phone: (3 sources) Fluconazole Allergy to substance 04-08-20 23 Rash [facility] (3 sources) Aspirin / Dipyridamole; Translations: [ASPIRIN-DIPYRIDAMOL E] Drug Allergy 06-18-20 16 [employer] Work Phone: (6 sources) Fenofibrate; Translations: [FENOFIBRATE MICRONIZED] Drug Allergy 06-18-20 16 [employer] (4 sources) Metoprolol; Translations: [METOPROLOL] Drug Allergy 09-09-19 24 Other (See Comments) [employer] Medications Current Medications Medication Drug Class(es) Dates [...] Start: 11-25-2022 take 2 tablets by mo [facility] once daily calcium citrate 250 mg [...] Active Start: 08-10-2019 take 1 tablet by [facility] once daily Cholecalciferol (Vitamin D3) (Vitamin D3) 2,000 unit Tablet Active 2000 UNIT PO Daily August 10, 2019 12:00am cholecalciferol (Vitamin D-3) 25 MCG tablet Take 12.5 mcg by mouth in the morning and 12.5 mcg in the evening and 12.5 mcg before bedtime. 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 Operator, Non-Standardized Chemical Allergen Artificial Tear Solution [...] by mouth every week Ergocalciferol 1.25 MG (75822 UT) capsule Take 1 capsule by mouth [...] Anti-coagulant Start: 10-13-2023 End: 10-14-2023 heparin infusion 31692 units/500 mL in 0.45% NaCl (50 units/mL [...] graft with unstable angina pectoris, unspecified whether [place] or transplanted heart ([facility]) Take 1 tablet (1,000 mg total) by [...] Coronary arteriosclerosis; Translations: [Atherosclerotic heart disease of [place] coronary artery without angina pectoris] Onset: 10-19-2020 03-05-2023 Chronic Coronary atherosclerosis and other heart disease (1 source) Coronary atherosclerosis and other heart disease; Translations: [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 [...] encounter Episodic Other aftercare (1 source) 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; Translations: [OTH ALF CURRENT DRUG THERAPY] Onset: 07-21-2022 Episodic Other [...] Anion gap [Moles/Vol] 15 mmol/L Normal 5-15 [facility] Comment on above: Performed By: #### P INR, 75497-5, 718-7, PLTCT, BMP, 16053-7 #### [facility] ([id number]) [address], [address] [place] [address] Calcium [Mass/Vol] 8.0 mg/dL Low 8.5-10.5 [facility] Comment on above: Performed By: #### P INR, 04820-6, 718-7, PLTCT, BMP, 13230-2 #### [facility] ([id number]) [address], [address] [place] [address] Chloride [Moles/Vol] 97 mmol/L Low 98-109 [facility] Comment on above: Performed By: #### P INR, 51797-1, 718-7, PLTCT, BMP, 55879-4 #### [facility] ([id number]) [address], [address] [place] [address] CO2 [Moles/Vol] 28 mmol/L Normal 22-32 [facility] Comment on above: Performed By: #### P INR, 95383-4, 718-7, PLTCT, BMP, 52453-9 #### [facility] ([id number]) [address], [address] [place] [address] Creatinine [Mass/Vol] 0.88 mg/dL Normal 0.40-1.00 [facility] Comment on above: Result Comment: METH OD TRACEABLE TO IDMS STANDARD Performed By: #### P INR, 09597-8, 718-7, PLTCT, BMP, 82134-6 #### [facility] ([id number]) [address], [address] [place] [address] GFR/1.73 sq M.predicted among non-blacks MDRD (S/P/Bld) [Vol rate/Area] 71 mL/min/{1.73_m2} Normal >59 [facility] Comment on above: Result Comment: Reported eGFR is based on the CKD-EPI 2020 equation that does not use a race coefficient. Performed By: #### P INR, 39869-8, 718-7, PLTCT, BMP, 28508-8 #### [facility] ([id number]) [address], [address] [place] [address] Glucose [Mass/Vol] 138 mg/dL High 65-99 [facility] Comment on above: Performed By: #### P INR, 57484-6, 718-7, PLTCT, BMP, 36657-9 #### [facility] ([id number]) [address], [address] [place] [address] Potassium [Moles/Vol] 4.8 mmol/L Normal 3.5-5.0 [facility] Comment on above: Result Comment: SPEC IMEN HEMOLYZED, RESULTS INCREASED MODERATELY HEMOLYZED Performed By: #### P INR, 02088-9, 718-7, PLTCT, BMP, 25258-5 #### [facility] ([id number]) [address], [address] [place] [address] Sodium [Moles/Vol] 140 mmol/L Normal 134-146 [facility] Comment on above: Performed By: #### P INR, 49887-4, 718-7, PLTCT, BMP, 59305-7 #### [facility] ([id number]) [address], [address] [place] [address] Urea nitrogen [Mass/Vol] 20 mg/dL Normal 5-27 [facility] Comment on above: Performed By: #### P INR, 29088-5, 8-7, PLTCT, BMP, #### [facility] ([id number]) [address], [address] [place] [address] Basic Metabolic Panelon Anion gap [Moles/Vol] 15 mmol/L 5 - 15 mmol/L [facility] Calcium [Mass/Vol] 8.0 mg/dL Low 8.5 - 10. 5 mg/dL [facility] Chloride [Moles/Vol] 97 mmol/L Low 98 - 109 mmol/L [facility] CO2 [Moles/Vol] 28 mmol/L 22 - 32 mmol/L [facility] Creatinine [Mass/Vol] 0.88 mg/dL 0.40 - 1.00 mg/dL [facility] Comment on above: METHOD TRACEABLE TO IDAZ STANDARD eGFR (CKD-EPI)non-race dependent 71 - PINF [facility] Comment on above: Reported eGFR is based on the CKD-EPI 2020 equation that does not use a race coefficient. Glucose [Mass/Vol] 138 mg/dL High 65 - 99 mg/dL [facility] Potassium [Moles/Vol] 4.8 mmol/L 3.5 - 5.0 mmol/L [facility] Comment on above: SPECIMEN HEMOLYZED, RESULTS INCREASED MODERATELY HEMOLYZED Sodium [Moles/Vol] 140 mmol/L 134 - 146 mmol/L [facility] Urea nitrogen [Mass/Vol] 20 mg/dL 5 - 27 mg/dL [facility] CBC AND AUTO DIFFon 10-15-19 24 ABSOLUTE BASOPHIL 0.0 X10E9/L Normal 0.0-0.2 [facility] Comment on above: Performed By: #### P INR, 69655-0, 718-7, PLTCT, BMP, 38043-7 #### [facility] ([id number]) [address], [address] [place] [address] ABSOLUTE NEUTROPHIL 4.6 X10E9/L Normal 1.5-6.6 [facility] Comment on above: Performed By: #### P INR, 56822-6, 718-7, PLTCT, BMP, 03119-5 #### [facility] ([id number]) [address], [address] [place] [address] Basophils/100 WBC (Bld) 0.4 % Normal [facility] Comment on above: Performed By: #### P INR, 12760-8, 718-7, PLTCT, BMP, 17014-0 #### [facility] ([id number]) [address] [address] Eosinophils (Bld) [#/Vol] 0.0 10*3/uL Normal 0.0-0.4 [facility] Comment on above: Performed By: #### P INR, 39830-8, 8-7, PLTCT, BMP, 04856-7 #### [facility] ([id number]) [address] [address] Eosinophils/100 WBC (Bld) 0.3 % Normal [facility] Comment on above: Performed By: #### P INR, 33339-6, 718-7, PLTCT, BMP, 01050-2 #### [facility] ([id number]) [address] [facility] [facility] [address] [place] [address] Erythrocyte distribution width (RBC) [Ratio] 12.7 % Normal 11.5-15.0 [facility] Comment on above: Performed By: #### P INR, 62339-4, 718-7, PLTCT, BMP, 54999-0 #### [facility] ([id number]) [address], [address] [place] [address] Hematocrit (Bld) [Volume fraction] 38.1 % Normal 35-47 [facility] Comment on above: Performed By: #### P INR, 01613-1, 718-7, PLTCT, BMP, 99925-9 #### [facility] ([id number]) [address], [address] [place] [address] Lymphocytes (Bld) [#/Vol] 2.2 10*3/uL Normal 1.0-3.5 [facility] Comment on above: Performed By: #### P INR, 69505-2, 718-7, PLTCT, BMP, 01406-2 #### [facility] ([id number]) [address], [facility] [address] [place] [address] Lymphocytes/100 WBC (Bld) 30.4 % Normal [facility] Comment on above: Performed By: #### P INR, 80862-2, 718-7, PLTCT, BMP, 17992-4 #### [facility] ([id number]) [address], [address] [place] [address] MCH (RBC) [Entitic mass] 34.3 pg High 27-34 [facility] Comment on above: Performed By: #### P INR, 56035-4, 8-7, PLTCT, BMP, 52854-7 #### [facility] ([id number]) [address], [address] [place] [address] MCHC (RBC) [Mass/Vol] 33.3 g/dL Normal 32-36 [facility] Comment on above: Performed By: #### P INR, 73151-5, 718-7, PLTCT, BMP, 52698-4 #### [facility] ([id number]) [address], [address] [place] [address] MCV (RBC) [Entitic vol] 103 fL High 80-100 [facility] Comment on above: Performed By: #### P INR, 18652-7, 718-7, PLTCT, BMP, 01369-1 #### [facility] ([id number]) [address], [address] [place] [address] Monocytes (Bld) [#/Vol] 0.4 10*3/uL Normal 0-0.9 [facility] Comment on above: Performed By: #### P INR, 77140-3, 718-7, PLTCT, BMP, 74350-1 #### [facility] ([id number]) [address], [address] [place] [address] Monocytes/100 WBC (Bld) 6.0 % Normal [facility] Comment on above: Performed By: #### P INR, 91971-3, 718-7, PLTCT, BMP, 03790-8 #### [facility] ([id number]) [address], [address] [place] [address] Neutrophils/100 WBC (Bld) 62.9 % Normal [facility] Comment on above: Performed By: #### P INR, 85559-8, 718-7, PLTCT, BMP, 38010-6 #### [facility] ([id number]) [address], [facility] [address] [place] [address] Platelet mean volume (Bld) [Entitic vol] 8.7 fL Normal 7-12 [facility] Comment on above: Performed By: #### P INR, 91595-9, 718-7, PLTCT, BMP, 47360-7 #### [facility] ([id number]) [address], [address] [place] [address] Platelets (Bld) [#/Vol] 229 10*3/uL Normal 150-450 [facility] Comment on above: Performed By: #### P INR, 70401-5, 718-7, PLTCT, BMP, 07163-3 #### [facility] ([id number]) [address], [address] [place] [address] RBC COUNT 3.69 X10E12/L Low 3.80-5.20 [facility] Comment on above: Performed By: #### P INR, 37242-0, 718-7, PLTCT, BMP, 84179-9 #### [facility] ([id number]) [address], [address] [place] [address] WBC (Bld) [#/Vol] 7.3 10*3/uL Normal 4.0-11.0 [facility] Comment on above: Performed By: #### P INR, 19015-0, 718-7, PLTCT, BMP, 85987-5 #### [facility] ([id number]) [address], [address] [place] [address] CBC auto differentialon 04-0 Basophils (Bld) [#/Vol] 0.0 10*3/uL [facility] Basophils/100 WBC (Bld) 0.4 % [facility] Eosinophils (Bld) [#/Vol] 0.0 10*3/uL [facility] Eosinophils/100 WBC (Bld) 0.3 % [facility] Erythrocyte distribution width (RBC) [Ratio] 12.7 % 11.5 - 15.0 % [facility] Hematocrit (Bld) [Volume fraction] 38.1 % 35 - 47 % [facility] Hemoglobin (Bld) [Mass/Vol] 12.7 g/dL 11.7 - 15.5 g/dL [facility] Interpretation and review of laboratory results Abnormal [facility] Lymphocytes (Bld) [#/Vol] 2.2 10*3/uL [facility] Lymphocytes/100 WBC (Bld) 30.4 % [facility] MCH (RBC) [Entitic mass] 34.3 pg High 27 - 34 pg [facility] MCHC (RBC) [Mass/Vol] 33.3 g/dL 32 - 36 g/dL [facility] MCV (RBC) [Entitic vol] 103 fL High 80 - 100 fL [facility] Monocytes (Bld) [#/Vol] 0.4 10*3/uL [facility] Monocytes/100 WBC (Bld) 6.0 % [facility] Neutrophils (Bld) [#/Vol] 4.6 10*3/uL [facility] Neutrophils/100 WBC (Bld) 62.9 % [facility] Platelet mean volume (Bld) [Entitic vol] 8.7 fL 7 - 12 fL [facility] Platelets (Bld) [#/Vol] 229 10*3/uL [facility] RBC (Bld) [#/Vol] 3.69 10*6/uL Low [facility] WBC corrected for nucl RBC Auto (Bld) [#/Vol] 7.3 [facility] CREATININEon 10-15-2023 Creatinine [Mass/Vol] 0.81 mg/dL Normal 0.40-1.00 [facility] Comment on above: Result Comment: METH OD TRACEABLE TO IDMS STANDARD Performed By: #### P INR, 26362-4, 718-7, PLTCT, BMP, 70004-8 #### [facility] ([id number]) [address] [facility] [facility] [place] [address] GFR/1.73 sq M.predicted among non-blacks MDRD (S/P/Bld) [Vol rate/Area] 79 mL/min/{1.73_m2} Normal >59 [facility] Comment on above: Result Comment: Reported eGFR is based on the CKD-EPI 2020 equation that does not use a race coefficient. Performed By: #### P INR, 08977-7, 718-7, PLTCT, BMP, 81954-3 #### [facility] ([id number]) [address] [facility] [address] [facility] [place] [address] Creatinine includes GFR, ser umon 10-15-2023 Creatinine [Mass/Vol] 0.81 mg/dL 0.40 - 1.00 mg/dL [facility] Comment on above: METHOD TRACEABLE TO IDMS STANDARD eGFR (CKD-EPI)non-race dependent 79 - PINF [facility] Comment on above: Reported eGFR is based on the CKD-EPI 2020 equation that does not use a race coefficient. HEMOGLOBINon 10-15-2023 Hemoglobin (Bld) [Mass/Vol] 12.7 g/dL Normal 11.7-15.5 [facility] Comment on above: Performed By: #### P INR, 97165-9, 718-7, PLTCT, BMP, 10591-5 #### [facility] ([id number]) [address] [facility] [place] [address] Hemoglobinon 10-15-2023 Hemoglobin (Bld) [Mass/Vol] 12.7 g/dL 11.7 - 15.5 g/dL [facility] Ionized magnesiumon 10-15-19 Magnesium Ionized ISE (Bld) [Moles/Vol] 0.53 mmol/L 0.45 - 0.74 mmol/L [facility] Comment on above: NEW REFERENCE RANGE MAGNESIUMon 10-15-2023 Magnesium [Mass/Vol] 1.8 mg/dL Normal 1.8-2.6 [facility] Comment on above: Result Comment: SPEC IMEN HEMOLYZED, RESULTS INCREASED MARKEDLY HEMOLYZED Performed By: #### P INR, 01076-4, 718-7, PLTCT, BMP, 09728-8 #### [facility] ([id number]) [address] [facility] [place] [address] Magnesiumon 10-15-2023 Magnesium [Mass/Vol] 1.8 mg/dL 1.8 - 2.6 mg/dL [facility] Comment on above: SPECIMEN HEMOLYZED, RESULTS INCREASED MARKEDLY HEMOLYZED Magnesium Ionized ISE (Bld) [Moles/Vol]on 10-15-2023 Magnesium [Moles/Vol] 0.53 mmol/L Normal 0.45-0.74 [facility] Comment on above: Result Comment: NEW REFERENCE RANGE Performed By: #### P INR, 94840-2, 718-7, PLTCT, BMP, 89881-3 #### [facility] ([id number]) [address], [address] [place] [address] [facility] No Panel Informationon 10-14 Interpretation and review of laboratory results Abnormal [facility] PHOSPHORUSon 10-15-2023 Phosphate [Mass/Vol] 5.7 mg/dL High 2.4-4.9 [facility] Comment on above: Result Comment: SPEC IMEN HEMOLYZED, RESULTS INCREASED MODERATELY HEMOLYZED Performed By: #### P INR, 33335-9, 718-7, PLTCT, BMP, 13165-6 #### [facility] ([id number]) [address], [address] [place] [address] PLATELET COUNT AND MPVon Platelet mean volume (Bld) [Entitic vol] 8.3 fL Normal 7-12 [facility] Comment on above: Performed By: #### P INR, 45089-3, 718-7, PLTCT, BMP, 14005-7 #### [facility] ([id number]) [address], [address] [place] [address] Platelets (Bld) [#/Vol] 219 10*3/uL Normal 150-450 [facility] Comment on above: Performed By: #### P INR, 79283-8, 718-7, PLTCT, BMP, 09835-0 #### [facility] ([id number]) [address], [address] [place] [address] Phosphoruson 10-15-2023 Phosphate [Mass/Vol] 5.7 mg/dL High 2.4 - 4.9 mg/dL [facility] Comment on above: SPECIMEN HEMOLYZED, RESULTS INCREASED MODERATELY HEMOLYZED Platelet counton 10-15-2023 Platelet mean volume (Bld) [Entitic vol] 8.3 fL 7 - 12 fL [facility] Platelets (Bld) [#/Vol] 219 10*3/uL [facility] XR Chest Single viewon 10-14 Kay Dunn, DO - 10/15/2023 Procedure: Chest x-ray performed Number of views:AP view History:Hypoxia Comparison:10/12/2023 Findings: The heart and mediastinal silhouette are stable. There is pulmonary vascular congestion. There are no focal consolidations. There is a small left pleural effusion. There is no pneumothorax Impression: Pulmonary vascular congestion. Finalized by Kay Dunn DO on 10/15/2023 10:48 AM [facility] Chest Single viewOrdered By: Kay Dunn on 10-15-2023 [employer] Work Phone: Anti XA unfractionated hepar inon 10-14-2023 Heparin unfractionated Chromogenic method Qn (PPP) Low [facility] Comment on above: Optimal time for marky ting is 6 hrs post dosage This test is specific for monitoring patients on UFH, and is not recommended for use with other Anti-Xa medications. Heparin unfractionated Chromogenic method Qn (PPP) 0.68 [facility] Comment on above: Optimal time for marky ting is 6 hrs post dosage This test is specific for monitoring patients on UFH, and is not recommended for use with other Anti-Xa medications. BASIC METABOLIC PANLon 10-13 Anion gap [Moles/Vol] 11 mmol/L Normal 5-15 [facility] Comment on above: Performed By: #### P INR, 39999-3, 718-7, PLTCT, BMP, 42470-0 #### [facility] ([id number]) [address] [place] [address] Calcium [Mass/Vol] 7.4 mg/dL Low 8.5-10.5 [facility] Comment on above: Performed By: #### P INR, 22126-1, 718-7, PLTCT, BMP, 39338-7 #### [facility] ([id number]) [address] [place] [address] Chloride [Moles/Vol] 100 mmol/L Normal 98-109 [facility] Comment on above: Performed By: #### P INR, 04961-5, 718-7, PLTCT, BMP, 01334-7 #### [facility] ([id number]) [address], [address] [place] [address] CO2 [Moles/Vol] 30 mmol/L Normal 22-32 [facility] Comment on above: Performed By: #### P INR, 82365-2, 718-7, PLTCT, BMP, 58354-4 #### [facility] ([id number]) [address], [address] [place] [address] Creatinine [Mass/Vol] 1.05 mg/dL High 0.40-1.00 [facility] Comment on above: Result Comment: METH OD TRACEABLE TO IDMS STANDARD Performed By: #### P INR, 61636-1, 718-7, PLTCT, BMP, 80039-7 #### [facility] ([id number]) [address], [facility] [address] [place] [address] GFR/1.73 sq M.predicted among non-blacks MDRD (S/P/Bld) [Vol rate/Area] 58 mL/min/{1.73_m2} Low >59 [facility] Comment on above: Result Comment: Reported eGFR is based on the CKD-EPI 2020 equation that does not use a race coefficient. Performed By: #### P INR, 13750-4, 718-7, PLTCT, BMP, 21313-3 #### [facility] ([id number]) [address], [address] [place] [address] Glucose [Mass/Vol] 122 mg/dL High 65-99 [facility] Comment on above: Performed By: #### P INR, 84690-7, 718-7, PLTCT, BMP, 44239-0 #### [facility] ([id number]) [address], [address] [place] [address] Potassium [Moles/Vol] 4.4 mmol/L Normal 3.5-5.0 [facility] Comment on above: Performed By: #### P INR, 55725-8, 718-7, PLTCT, BMP, 36053-5 #### [facility] ([id number]) [address], [address] [place] [address] Sodium [Moles/Vol] 141 mmol/L Normal 134-146 [facility] Comment on above: Performed By: #### P INR, 40040-3, 718-7, PLTCT, BMP, 19376-1 #### [facility] ([id number]) [address], [facility] [address] [place] [address] Urea nitrogen [Mass/Vol] 22 mg/dL Normal 5-27 [facility] Comment on above: Performed By: #### P INR, 51988-5, 718-7, PLTCT, BMP, 72639-3 #### [facility] ([id number]) [address], [facility] [address] [place] [address] Basic Metabolic Panelon 04-0 Anion gap [Moles/Vol] 11 mmol/L 5 - 15 mmol/L [facility] Calcium [Mass/Vol] 7.4 mg/dL Low 8.5 - 10. 5 mg/dL [facility] Chloride [Moles/Vol] 100 mmol/L 98 - 109 mmol/L [facility] CO2 [Moles/Vol] 30 mmol/L 22 - 32 mmol/L [facility] Creatinine [Mass/Vol] 1.05 mg/dL High 0.40 - 1.00 mg/dL [facility] Comment on above: METHOD TRACEABLE TO IDAZ STANDARD eGFR (CKD-EPI)non-race dependent 58 Low - PINF [facility] Comment on above: Reported eGFR is based on the CKD-EPI 2020 equation that does not use a race coefficient. Glucose [Mass/Vol] 122 mg/dL High 65 - 99 mg/dL [facility] Interpretation and review of laboratory results Abnormal [facility] Potassium [Moles/Vol] 4.4 mmol/L 3.5 - 5.0 mmol/L [facility] Sodium [Moles/Vol] 141 mmol/L 134 - 146 mmol/L [facility] Urea nitrogen [Mass/Vol] 22 mg/dL 5 - 27 mg/dL [facility] CBC without diffon Erythrocyte distribution width (RBC) [Ratio] 13.0 % 11.5 - 15.0 % [facility] Hematocrit (Bld) [Volume fraction] 37.7 % 35 - 47 % [facility] Hemoglobin (Bld) [Mass/Vol] 12.5 g/dL 11.7 - 15.5 g/dL [facility] Interpretation and review of laboratory results Abnormal [facility] MCH (RBC) [Entitic mass] 34.4 pg High 27 - 34 pg [facility] MCHC (RBC) [Mass/Vol] 33.1 g/dL 32 - 36 g/dL [facility] MCV (RBC) [Entitic vol] 104 fL High 80 - 100 fL [facility] Platelet mean volume (Bld) [Entitic vol] 8.8 fL 7 - 12 fL [facility] Platelets (Bld) [#/Vol] 207 10*3/uL [facility] RBC (Bld) [#/Vol] 3.64 10*6/uL Low [facility] WBC corrected for nucl RBC Auto (Bld) [#/Vol] 8.4 [facility] COMPLETE BLOOD COUNTon 10-13 Erythrocyte distribution width (RBC) [Ratio] 13.0 % Normal 11.5-15.0 [facility] Comment on above: Performed By: #### P INR, 88861-4, 718-7, PLTCT, BMP, 33174-1 #### [facility] ([id number]) [address] [facility] [place] [address] Hematocrit (Bld) [Volume fraction] 37.7 % Normal 35-47 [facility] Comment on above: Performed By: #### P INR, 28982-0, 718-7, PLTCT, BMP, 44450-7 #### [facility] ([id number]) [address], [facility] [address] [place] [address] Hemoglobin (Bld) [Mass/Vol] 12.5 g/dL Normal 11.7-15.5 [facility] Comment on above: Performed By: #### P INR, 94767-3, 718-7, PLTCT, BMP, 07256-4 #### [facility] ([id number]) [address], [address] [address] MCH (RBC) [Entitic mass] 34.4 pg High 27-34 [facility] Comment on above: Performed By: #### P INR, 36288-8, 718-7, PLTCT, BMP, 31787-0 #### [facility] ([id number]) [address], [address] [address] MCHC (RBC) [Mass/Vol] 33.1 g/dL Normal 32-36 [facility] Comment on above: Performed By: #### P INR, 22167-1, 718-7, PLTCT, BMP, 66684-6 #### [facility] ([id number]) [address] [address] MCV (RBC) [Entitic vol] 104 fL High 80-100 [facility] Comment on above: Performed By: #### P INR, 61883-2, 718-7, PLTCT, BMP, 07801-2 #### [facility] ([id number]) [address] [address] Platelet mean volume (Bld) [Entitic vol] 8.8 fL Normal 7-12 [facility] Comment on above: Performed By: #### P INR, 80555-6, 718-7, PLTCT, BMP, 79635-4 #### [facility] ([id number]) [address], [address] [address] Platelets (Bld) [#/Vol] 207 10*3/uL Normal 150-450 [facility] Comment on above: Performed By: #### P INR, 26281-1, 718-7, PLTCT, BMP, 66614-8 #### [facility] ([id number]) [address] [address] RBC COUNT 3.64 X10E12/L Low 3.80-5.20 [facility] Comment on above: Performed By: #### P INR, 98890-1, 718-7, PLTCT, BMP, 81989-1 #### [facility] ([id number]) [address] [address] WBC (Bld) [#/Vol] 8.4 10*3/uL Normal 4.0-11.0 [facility] Comment on above: Performed By: #### P INR, 41747-2, 718-7, PLTCT, BMP, 80419-8 #### [facility] ([id number]) [address] [address] Calcium.ionized (Bld) [Mass/ Vol]on 10-14-2023 IONIZED CALCIUM 4.3 mg/dL Low 4.5-5.3 [facility] Comment on above: Performed By: #### P INR, 58171-7, 718-7, PLTCT, BMP, 89495-6 #### [facility] ([id number]) [address] [address] Interpretation and review of laboratory results Abnormal [facility] IONIZED CALCIUM 3.9 mg/dL Low 4.5-5.3 [facility] Comment on above: Performed By: #### P INR, 80088-4, 718-7, PLTCT, BMP, 87343-5 #### [facility] ([id number]) [address] [place] [address] Interpretation and review of laboratory results Abnormal [facility] IONIZED CALCIUM 4.1 mg/dL Low 4.5-5.3 [facility] Comment on above: Performed By: #### P INR, 04315-2, 718-7, PLTCT, BMP, 84765-4 #### [facility] ([id number]) [address], [address] [place] [address] Interpretation and review of laboratory results Abnormal [facility] Coronary angiography perform edon 10-14-2023 Addendum by Alexi Freeman MD on 10/14/2023 5:07 PM EDT Severe [...] the distal LAD after that reconstitutes via [id number] collaterals. The vessel is extremely small and not amenable to PCI. Intervention No interventions have been documented. Right Atrium Normal left and right heart filling pressures. Normal pulmonary arterial pressure mildly elevated left ventricular end-diastolic pressure normal cardiac output and cardiac index. [facility] Radiology Study observation (narrative) [facility] ECG 12 leadon 10-14-2023 TRACEMASTERVUE [facility] HGB A1C (GLYCO-HGB)on 2023 Glucose [Mass/Vol] 91 mg/dL Normal [facility] Comment on above: Performed By: #### P INR, 57191-9, 718-7, PLTCT, BMP, 98000-3 #### [facility] ([id number]) [address] [place] [address], [facility] [address] [place] [address] HbA1c (Bld) [Mass fraction] 4.8 % Normal 4.4-5.6 [facility] Comment on above: Result Comment: NOTE ADA Guidelines Result HgbA1c Normal : less than 5.7 % Prediabetes : 5.7 % to 6.4 % Diabetes : > 6.4 % Use with caution in patients with abnormal hemoglobin variants as the half-life of red blood cells and in vivo glycation rates are affected. Performed By: #### P INR, 38613-6, 718-7, PLTCT, BMP, 01661-6 #### [facility] ([id number]) [address] [place] [address] Hemoglobin A1con 10-14-2023 Average glucose Estimated from glycated hemoglobin (Bld) [Mass/Vol] 91 mg/dL [facility] HbA1c (Bld) [Mass fraction] 4.8 % 4.4 - 5.6 % [facility] Comment on above: NOTE ADA Guidelines Result HgbA1c Normal : less than 5.7 % Prediabetes : 5.7 % to 6.4 % Diabetes : > 6.4 % Use with caution in patients with abnormal hemoglobin variants as the half-life of red blood cells and in vivo glycation rates are affected. [facility] Heparin unfractionated Chrom ogenic method Qn (PPP)on 10-14-2023 ANTI XA UFH <0.04 Low 0.30-0.70 [facility] Comment on above: Result Comment: Opti mal time for testing is 6 hrs post dosage This test is specific for monitoring patients on UFH, and is not recommended for use with other Anti-Xa medications. Performed By: #### P INR, 33897-1, 718-7, PLTCT, BMP, 75927-0 #### [facility] ([id number]) [address], [address] [place] [address] Interpretation and review of laboratory results Abnormal [facility] ANTI XA UFH 0.68 IU/mL Normal 0.30-0.70 [facility] Comment on above: Result Comment: Opti mal time for testing is 6 hrs post dosage This test is specific for monitoring patients on UFH, and is not recommended for use with other Anti-Xa medications. Performed By: #### P INR, 11371-9, 718-7, PLTCT, BMP, 08081-1 #### [facility] ([id number]) [address], [address] [place] [address] [facility] Ionized calciumon 10-14-2023 Calcium.ionized (Bld) [Mass/Vol] 4.3 mg/dL Low 4.5 - 5.3 mg/dL [facility] Calcium.ionized (Bld) [Mass/Vol] 3.9 mg/dL Low 4.5 - 5.3 mg/dL [facility] Calcium.ionized (Bld) [Mass/Vol] 4.1 mg/dL Low 4.5 - 5.3 mg/dL [facility] Ionized magnesiumon 10-14-19 Magnesium Ionized ISE (Bld) [Moles/Vol] 0.54 mmol/L 0.45 - 0.74 mmol/L [facility] Comment on above: NEW REFERENCE RANGE Lipid 1996 panelon 4 Cholesterol [Mass/Vol] 135 mg/dL Low 150-200 [facility] Comment on above: Performed By: #### P INR, 82621-2, 718-7, PLTCT, BMP, 74401-3 #### [facility] ([id number]) [address], [address] [place] [address] Cholesterol in HDL [Mass/Vol] 59 mg/dL Normal >39 [facility] Comment on above: Result Comment: HDL <40 mg/dL - High Risk HDL > or = 40mg/dL- Desirable HDL >60 mg/dL - Negative Risk Performed By: #### P INR, 79453-2, 718-7, PLTCT, BMP, 12960-5 #### [facility] ([id number]) [address], [address] [place] [address] Cholesterol in LDL [Mass/Vol] 46 mg/dL Normal <130 [facility] Comment on above: Result Comment: LDL <100 mg/dL - Desirable LDL >160 mg/dL - High Risk Performed By: #### P INR, 80089-3, 718-7, PLTCT, BMP, 53464-4 #### [facility] ([id number]) [address], [address] [place] [address] Cholesterol in VLDL [Mass/Vol] 30 mg/dL Normal 0-30 [facility] Comment on above: Performed By: #### P INR, 17597-3, 718-7, PLTCT, BMP, 81129-4 #### [facility] ([id number]) [address], [address] [place] [address] CHOLESTEROL:HDL 2.3 Normal 1.0-5.0 [facility] Comment on above: Performed By: #### P INR, 97021-6, 718-7, PLTCT, BMP, 65122-7 #### [facility] ([id number]) [address], [address] [place] [address] Triglyceride [Mass/Vol] 150 mg/dL Normal 27-150 [facility] Comment on above: Performed By: #### P INR, 19669-9, 718-7, PLTCT, BMP, 31060-0 #### [facility] ([id number]) [address], [address] [place] [address] Cholesterol [Mass/Vol] 135 mg/dL Low 150 - 200 mg/dL [facility] Cholesterol in HDL [Mass/Vol] 59 mg/dL 39 - PINF mg/dL [facility] Comment on above: HDL <40 mg/dL - High Risk HDL > or = 40mg/dL- Desirable HDL >60 mg/dL - Negative Risk Cholesterol in LDL [Mass/Vol] 46 mg/dL NINF - 130 mg/dL [facility] Comment on above: LDL <100 mg/dL - Desirable LDL >160 mg/dL - High Risk Cholesterol in VLDL [Mass/Vol] 30 mg/dL 0 - 30 mg/dL [facility] Cholesterol.total/ Cholesterol in HDL [Mass ratio] 2.3 {ratio} 1.0 - 5.0 [facility] Interpretation and review of laboratory results Abnormal [facility] Triglyceride [Mass/Vol] 150 mg/dL 27 - 150 mg/dL [facility] MAGNESIUMon 10-14-2023 Magnesium [Mass/Vol] 1.8 mg/dL Normal 1.8-2.6 [facility] Comment on above: Performed By: #### P INR, 54981-5, 718-7, PLTCT, BMP, 81879-8 #### [facility] ([id number]) [address] [place] [address] Magnesiumon 10-14-2023 Magnesium [Mass/Vol] 1.8 mg/dL 1.8 - 2.6 mg/dL [facility] Magnesium Ionized ISE (Bld) [Moles/Vol]on 10-14-2023 Magnesium [Moles/Vol] 0.54 mmol/L Normal 0.45-0.74 [facility] Comment on above: Result Comment: NEW REFERENCE RANGE Performed By: #### P INR, 39232-5, 718-7, PLTCT, BMP, 90442-9 #### [facility] ([id number]) [address] [place] [address] [facility] No Panel Informationon 10-13 [facility] APTTon 10-13-2023 aPTT Coag (PPP) [Time] 48 s [facility] Anti XA unfractionated hepar inon 10-13-2023 Heparin unfractionated Chromogenic method Qn (PPP) 0.74 [facility] Comment on above: Optimal time for marky ting is 6 hrs post dosage This test is specific for monitoring patients on UFH, and is not recommended for use with other Anti-Xa medications. Heparin unfractionated Chromogenic method Qn (PPP) 0.69 [facility] Comment on above: Optimal time for marky ting is 6 hrs post dosage This test is specific for monitoring patients on UFH, and is not recommended for use with other Anti-Xa medications. Heparin unfractionated Chromogenic method Qn (PPP) 0.72 [facility] Comment on above: Optimal time for marky ting is 6 hrs post dosage This test is specific for monitoring patients on UFH, and is not recommended for use with other Anti-Xa medications. BASIC METABOLIC PANLon 10-12 Anion gap [Moles/Vol] 13 mmol/L Normal 5-15 [facility] Comment on above: Performed By: #### P INR, 40304-2, 718-7, PLTCT, BMP, 84901-2 #### [facility] ([id number]) [address], [address] [place] [address] Calcium [Mass/Vol] 6.3 mg/dL Critically low 8.5-10.5 [facility] Comment on above: Performed By: #### P INR, 16395-0, 718-7, PLTCT, BMP, 47404-3 #### [facility] ([id number]) [address], [address] [place] [address] Chloride [Moles/Vol] 100 mmol/L Normal 98-109 [facility] Comment on above: Performed By: #### P INR, 39462-8, 718-7, PLTCT, BMP, 04184-5 #### [facility] ([id number]) [address], [address] [place] [address] CO2 [Moles/Vol] 30 mmol/L Normal 22-32 [facility] Comment on above: Performed By: #### P INR, 81285-5, 718-7, PLTCT, BMP, 61795-1 #### [facility] ([id number]) [address], [address] [place] [address] Creatinine [Mass/Vol] 0.79 mg/dL Normal 0.40-1.00 [facility] Comment on above: Result Comment: METH OD TRACEABLE TO IDMS STANDARD Performed By: #### P INR, 15424-1, 718-7, PLTCT, BMP, 29753-6 #### [facility] ([id number]) [address], [address] [place] [address] GFR/1.73 sq M.predicted among non-blacks MDRD (S/P/Bld) [Vol rate/Area] 81 mL/min/{1.73_m2} Normal >59 [facility] Comment on above: Result Comment: Reported eGFR is based on the CKD-EPI 2020 equation that does not use a race coefficient. Performed By: #### P INR, 94525-7, 718-7, PLTCT, BMP, 60509-3 #### [facility] ([id number]) [address], [address] [place] [address] Glucose [Mass/Vol] 157 mg/dL High 65-99 [facility] Comment on above: Performed By: #### P INR, 18557-4, 718-7, PLTCT, BMP, 87327-1 #### [facility] ([id number]) [address], [address] [place] [address] Potassium [Moles/Vol] 3.4 mmol/L Low 3.5-5.0 [facility] Comment on above: Performed By: #### P INR, 71016-6, 718-7, PLTCT, BMP, 79053-2 #### [facility] ([id number]) [address], [address] [place] [address] Sodium [Moles/Vol] 143 mmol/L Normal 134-146 [facility] Comment on above: Performed By: #### P INR, 78964-0, 718-7, PLTCT, BMP, 18986-2 #### [facility] ([id number]) [address], [address] [place] [address] Urea nitrogen [Mass/Vol] 16 mg/dL Normal 5-27 [facility] Comment on above: Performed By: #### P INR, 26060-4, 718-7, PLTCT, BMP, 31630-3 #### [facility] ([id number]) [address], [address] [place] [address] Anion gap [Moles/Vol] 15 mmol/L Normal 5-15 [facility] Comment on above: Performed By: #### P INR, 05754-6, 718-7, PLTCT, BMP, 88869-5 #### [facility] ([id number]) [address], [address] [place] [address] Calcium [Mass/Vol] 6.5 mg/dL Critically low 8.5-10.5 [facility] Comment on above: Performed By: #### P INR, 60173-6, 718-7, PLTCT, BMP, 76492-2 #### [facility] ([id number]) [address], [facility] [address] [place] [address] Chloride [Moles/Vol] 100 mmol/L Normal 98-109 [facility] Comment on above: Performed By: #### P INR, 35341-3, 718-7, PLTCT, BMP, 27732-0 #### [facility] ([id number]) [address], [address] [place] [address] CO2 [Moles/Vol] 30 mmol/L Normal 22-32 [facility] Comment on above: Performed By: #### P INR, 46684-9, 718-7, PLTCT, BMP, 18643-0 #### [facility] ([id number]) [address], [address] [place] [address] Creatinine [Mass/Vol] 0.88 mg/dL Normal 0.40-1.00 [facility] Comment on above: Result Comment: METH OD TRACEABLE TO IDMS STANDARD Performed By: #### P INR, 72530-8, 718-7, PLTCT, BMP, 16083-9 #### [facility] ([id number]) [address], [facility] [address] [place] [address] GFR/1.73 sq M.predicted among non-blacks MDRD (S/P/Bld) [Vol rate/Area] 71 mL/min/{1.73_m2} Normal >59 [facility] Comment on above: Result Comment: Reported eGFR is based on the CKD-EPI 2020 equation that does not use a race coefficient. Performed By: #### P INR, 25413-6, 718-7, PLTCT, BMP, 86395-9 #### [facility] ([id number]) [address], [address] [place] [address] Glucose [Mass/Vol] 154 mg/dL High 65-99 [facility] Comment on above: Performed By: #### P INR, 14019-9, 718-7, PLTCT, BMP, 89778-4 #### [facility] ([id number]) [address], [facility] [address] [place] [address] Potassium [Moles/Vol] 3.4 mmol/L Low 3.5-5.0 [facility] Comment on above: Performed By: #### P INR, 24528-3, 718-7, PLTCT, BMP, 45088-3 #### [facility] ([id number]) [address], [address] [place] [address] Sodium [Moles/Vol] 145 mmol/L Normal 134-146 [facility] Comment on above: Performed By: #### P INR, 64599-9, 718-7, PLTCT, BMP, 09900-0 #### [facility] ([id number]) [address], [facility] [address] [place] [address] Urea nitrogen [Mass/Vol] 16 mg/dL Normal 5-27 [facility] Comment on above: Performed By: #### P INR, 51532-1, 718-7, PLTCT, BMP, 58412-4 #### [facility] ([id number]) [address], [facility] [address] [place] [address] Basic Metabolic Panelon 04-0 Anion gap [Moles/Vol] 13 mmol/L 5 - 15 mmol/L [facility] Calcium [Mass/Vol] 6.3 mg/dL Critically low 8.5 - 1 0.5 mg/dL [facility] Chloride [Moles/Vol] 100 mmol/L 98 - 109 mmol/L [facility] CO2 [Moles/Vol] 30 mmol/L 22 - 32 mmol/L [facility] Creatinine [Mass/Vol] 0.79 mg/dL 0.40 - 1.00 mg/dL [facility] Comment on above: METHOD TRACEABLE TO [facility] STANDARD eGFR (CKD-EPI)non-race dependent 81 - PINF [facility] Comment on above: Reported eGFR is based on the CKD-EPI 2021 equation that does not use a race coefficient. Glucose [Mass/Vol] 157 mg/dL High 65 - 99 mg/dL [facility] Interpretation and review of laboratory results Abnormal [facility] Potassium [Moles/Vol] 3.4 mmol/L Low 3.5 - 5.0 mmol/L [facility] Sodium [Moles/Vol] 143 mmol/L 134 - 146 mmol/L [facility] Urea nitrogen [Mass/Vol] 16 mg/dL 5 - 27 mg/dL [facility] Anion gap [Moles/Vol] 15 mmol/L 5 - 15 mmol/L [facility] Calcium [Mass/Vol] 6.5 mg/dL Critically low 8.5 - 1 0.5 mg/dL [facility] Chloride [Moles/Vol] 100 mmol/L 98 - 109 mmol/L [facility] CO2 [Moles/Vol] 30 mmol/L 22 - 32 mmol/L [facility] Creatinine [Mass/Vol] 0.88 mg/dL 0.40 - 1.00 mg/dL [facility] Comment on above: METHOD TRACEABLE TO [facility] STANDARD eGFR (CKD-EPI)non-race dependent 71 - PINF [facility] Comment on above: Reported eGFR is based on the CKD-EPI 2021 equation that does not use a race coefficient. Glucose [Mass/Vol] 154 mg/dL High 65 - 99 mg/dL [facility] Potassium [Moles/Vol] 3.4 mmol/L Low 3.5 - 5.0 mmol/L [facility] Sodium [Moles/Vol] 145 mmol/L 134 - 146 mmol/L [facility] Urea nitrogen [Mass/Vol] 16 mg/dL 5 - 27 mg/dL [facility] CBC AND AUTO DIFFon 10-13-19 ABSOLUTE BASOPHIL 0.0 X10E9/L Normal 0.0-0.2 [facility] Comment on above: Performed By: #### C HENRI, , THYR, 39590-3 #### [facility] ([id number]) [address], [address] [place] [address] ABSOLUTE NEUTROPHIL 4.2 X10E9/L Normal 1.5-6.6 [facility] Comment on above: Performed By: #### Berhane ÁLVAREZ, , THYR, 20705-7 #### [facility] ([id number]) [address], [address] [place] [address] Basophils/100 WBC (Bld) 0.1 % Normal [facility] Comment on above: Performed By: #### Berhane ÁLVAREZ, , THYR, 21793-2 #### [facility] ([id number]) [address], [address] [place] [address] Eosinophils (Bld) [#/Vol] 0.0 10*3/uL Normal 0.0-0.4 [facility] Comment on above: Performed By: #### Berhane ÁLVAREZ, , THYR, 47167-1 #### [facility] ([id number]) [address], [address] [place] [address] Eosinophils/100 WBC (Bld) 0.0 % Normal [facility] Comment on above: Performed By: #### Berhane ÁLVAREZ, , THYR, 64961-3 #### [facility] ([id number]) [address], [address] [place] [address] Erythrocyte distribution width (RBC) [Ratio] 12.5 % Normal 11.5-15.0 [facility] Comment on above: Performed By: #### Berhane ÁLVAREZ, , THYR, 75713-3 #### [facility] ([id number]) [address], [address] [place] [address] Hematocrit (Bld) [Volume fraction] 39.2 % Normal 35-47 [facility] Comment on above: Performed By: #### C BCA, , THYR, 45942-4 #### [facility] ([id number]) [address], [address] [place] [address] Hemoglobin (Bld) [Mass/Vol] 13.2 g/dL Normal 11.7-15.5 [facility] Comment on above: Performed By: #### Berhane BCA, , THYR, 09210-1 #### [facility] ([id number]) [address], [address] [place] [address] Lymphocytes (Bld) [#/Vol] 0.9 10*3/uL Low 1.0-3.5 [facility] Comment on above: Performed By: #### Berhane BCA, , THYR, 66868-0 #### [facility] ([id number]) [address], [address] [place] [address] Lymphocytes/100 WBC (Bld) 17.5 % Normal [facility] Comment on above: Performed By: #### Berhane BCA, , THYR, 03127-2 #### [facility] ([id number]) [address], [address] [place] [address] MCH (RBC) [Entitic mass] 34.6 pg High 27-34 [facility] Comment on above: Performed By: #### C BCA, , THYR, 68224-0 #### [facility] ([id number]) [address], [address] [place] [address] MCHC (RBC) [Mass/Vol] 33.6 g/dL Normal 32-36 [facility] Comment on above: Performed By: #### C BCA, , THYR, 73625-5 #### [facility] ([id number]) [address], [address] [place] [address] MCV (RBC) [Entitic vol] 103 fL High 80-100 [facility] Comment on above: Performed By: #### C BCA, , THYR, 52575-0 #### [facility] ([id number]) [address], [address] [place] [address] Monocytes (Bld) [#/Vol] 0.1 10*3/uL Normal 0-0.9 [facility] Comment on above: Performed By: #### C BCA, , THYR, 05155-5 #### [facility] ([id number]) [address], [address] [place] [address] Monocytes/100 WBC (Bld) 2.5 % Normal [facility] Comment on above: Performed By: #### Berhane BCA, , THYR, 00441-3 #### [facility] ([id number]) [address], [address] [place] [address] Neutrophils/100 WBC (Bld) 79.9 % Normal [facility] Comment on above: Performed By: #### Berhane BCA, , THYR, 59687-7 #### [facility] ([id number]) [address], [address] [place] [address] Platelet mean volume (Bld) [Entitic vol] 8.6 fL Normal 7-12 [facility] Comment on above: Performed By: #### C BCA, , THYR, 61162-5 #### [facility] ([id number]) [address], [address] [place] [address] Platelets (Bld) [#/Vol] 176 10*3/uL Normal 150-450 [facility] Comment on above: Performed By: #### C BCA, 40732-1, THYR, 46902-7 #### [facility] ([id number]) [address], [address] [place] [address] RBC COUNT 3.80 X10E12/L Normal 3.80-5.20 [facility] Comment on above: Performed By: #### Berhane BCA, 67107-6, THYR, 35324-7 #### [facility] ([id number]) [address], [address] [place] [address] WBC (Bld) [#/Vol] 5.3 10*3/uL Normal 4.0-11.0 [facility] Comment on above: Performed By: #### Berhane BCA, 71271-2, THYR, 81162-9 #### [facility] ([id number]) [address], [address] [place] [address] CBC auto differentialon 04-0 Basophils (Bld) [#/Vol] 0.0 10*3/uL [facility] Basophils/100 WBC (Bld) 0.1 % [facility] [facility] Eosinophils (Bld) [#/Vol] 0.0 10*3/uL [facility] Eosinophils/100 WBC (Bld) 0.0 % [facility] Erythrocyte distribution width (RBC) [Ratio] 12.5 % 11.5 - 15.0 % [facility] Hematocrit (Bld) [Volume fraction] 39.2 % 35 - 47 % [facility] Hemoglobin (Bld) [Mass/Vol] 13.2 g/dL 11.7 - 15.5 g/dL [facility] Interpretation and review of laboratory results Abnormal [facility] Lymphocytes (Bld) [#/Vol] 0.9 10*3/uL Low [facility] Lymphocytes/100 WBC (Bld) 17.5 % [facility] MCH (RBC) [Entitic mass] 34.6 pg High 27 - 34 pg [facility] MCHC (RBC) [Mass/Vol] 33.6 g/dL 32 - 36 g/dL [facility] MCV (RBC) [Entitic vol] 103 fL High 80 - 100 fL [facility] Monocytes (Bld) [#/Vol] 0.1 10*3/uL [facility] Monocytes/100 WBC (Bld) 2.5 % [facility] Neutrophils (Bld) [#/Vol] 4.2 10*3/uL [facility] Neutrophils/100 WBC (Bld) 79.9 % [facility] Platelet mean volume (Bld) [Entitic vol] 8.6 fL 7 - 12 fL [facility] Platelets (Bld) [#/Vol] 176 10*3/uL [facility] RBC (Bld) [#/Vol] 3.80 10*6/uL [facility] WBC corrected for nucl RBC Auto (Bld) [#/Vol] 5.3 [facility] Calcium.ionized (Bld) [Mass/ Vol]on 10-13-2023 IONIZED CALCIUM 3.9 mg/dL Low 4.5-5.3 [facility] Comment on above: Performed By: #### P INR, 06429-0, 718-7, PLTCT, BMP, 77094-0 #### [facility] ([id number]) [address], [address] [place] [address] Interpretation and review of laboratory results Abnormal [facility] IONIZED CALCIUM 3.8 mg/dL Low 4.5-5.3 [facility] Comment on above: Performed By: #### 3 8230-9, 19783-9 #### [facility] ([id number]) [address], [address] [place] [address] Cardiac echo study Procedure on 10-13-2023 Aortic root 2.90 cm [facility] AV mean gradient 2.00 mmHg [facility] AV peak gradient 3.68 mmHg [facility] AV peak jeannie 95.90 cm/s [facility] AV valve area 2.03 cm2 [facility] AV Velocity Ratio 0.65 [facility] AV VTI 18.60 cm [facility] E wave deceleration time 124.00 msec [facility] E/A ratio 1.81 [facility] FS 11 % 28 - 44 % [facility] Interventricular Septum Diastolic Thickness by 2D 9 cm [facility] IVS 0.90 cm 0.6 - 1.1 cm [facility] LA size 3.10 cm [facility] LA volume 35.80 cm3 [facility] LA Volume Index 20.8 mL/m2 [facility] Left Ventricle Mass [id number] g [facility] LV ESV A2C 39.00 mL [facility] LV ESV A4C 31.30 mL [facility] LV RWT 2D 44.44 [facility] LVIDd 4.50 cm [facility] LVIDs 4.00 cm [facility] LVOT diameter 2.00 cm [facility] LVOT peak jeannie 0.58 m/s [facility] LVOT peak VTI 12.00 cm [facility] LVOT stroke volume 37.70 ml [facility] MV Peak A Jeannie 49.50 cm/s [facility] MV Peak E Jeannie 89.70 cm/s [facility] MV pressure 1/2 time 36.00 ms [facility] MV TDI E' (medial) 10.60 cm/s [facility] MV valve area p 1/2 method 6.11 cm2 [facility] PW 1.00 cm 0.6 - 1.1 cm [facility] RA area 11.2 cm2 [facility] RV diastolic dimension (basal) 30.0 mm [facility] TAPSE 1.04 cm [facility] TDI 11.90 cm/s [facility] TR peak gradient 11.[address] [facility] TR Peak Jeannie 1.7 m/s [facility] Valve area - Index 1.2 [facility] Left Ventricle: Syst olic function is severely [...] anteroseptal, apical septal and apical inferior. XCELERA [facility] Radiology Study observation (narrative) [facility] EKGon 10-13-2023 TRACEMASTERVUE [facility] Glucose Glucometer (BldC) [M ass/Vol]on 10-13-2023 Glucose [Mass/Vol] 173 mg/dL High 65-99 [facility] HEMOGLOBINon 10-13-2023 Hemoglobin (Bld) [Mass/Vol] 12.8 g/dL Normal 11.7-15.5 [facility] Comment on above: Performed By: #### P INR, 38088-5, 718-7, PLTCT, BMP, 22372-2 #### [facility] ([id number]) [address], [address] [place] [address] Hemoglobinon 10-13-2023 Hemoglobin (Bld) [Mass/Vol] 12.8 g/dL 11.7 - 15.5 g/dL [facility] Heparin unfractionated Chrom ogenic method Qn (PPP)on 10-13-2023 ANTI XA UFH 0.74 IU/mL High 0.30-0.70 [facility] Comment on above: Result Comment: Opti mal time for testing is 6 hrs post dosage This test is specific for monitoring patients on UFH, and is not recommended for use with other Anti-Xa medications. Performed By: #### P INR, 50308-2, 718-7, PLTCT, BMP, 00496-9 #### [facility] ([id number]) [address] [facility] [facility] [place] [address] Interpretation and review of laboratory results Abnormal [facility] [address] [facility] ANTI XA UFH 0.69 IU/mL Normal 0.30-0.70 [facility] Comment on above: Result Comment: Opti mal time for testing is 6 hrs post dosage This test is specific for monitoring patients on UFH, and is not recommended for use with other Anti-Xa medications. Performed By: #### P INR, 21794-9, 718-7, PLTCT, BMP, 73728-2 #### [facility] ([id number]) [address], [address] [place] [address] [facility] ANTI XA UFH 0.72 IU/mL High 0.30-0.70 [facility] Comment on above: Result Comment: Opti mal time for testing is 6 hrs post dosage This test is specific for monitoring patients on UFH, and is not recommended for use with other Anti-Xa medications. Performed By: #### P INR, 38212-8, 718-7, PLTCT, BMP, 38751-5 #### [facility] ([id number]) [address], [address] [place] [address] Interpretation and review of laboratory results Abnormal [facility] [address] [facility] Ionized calciumon 10-13-2023 Calcium.ionized (Bld) [Mass/Vol] 3.9 mg/dL Low 4.5 - 5.3 mg/dL [facility] Calcium.ionized (Bld) [Mass/Vol] 3.8 mg/dL Low 4.5 - 5.3 mg/dL [facility] Ionized magnesiumon 10-13-19 Magnesium Ionized ISE (Bld) [Moles/Vol] 0.64 mmol/L 0.45 - 0.74 mmol/L [facility] Comment on above: NEW REFERENCE RANGE Magnesium Ionized ISE (Bld) [Moles/Vol] 0.24 mmol/L Critically low 0.45 - 0.74 mmol/L [facility] Comment on above: NEW REFERENCE RANGE MAGNESIUMon 10-13-2023 Magnesium [Mass/Vol] 1.1 mg/dL Low 1.8-2.6 [facility] Comment on above: Performed By: #### P INR, 24911-3, 718-7, PLTCT, BMP, 39517-5 #### [facility] ([id number]) [address], [address] [place] [address] Magnesiumon 10-13-2023 Magnesium [Mass/Vol] 1.1 mg/dL Low 1.8 - 2.6 mg/dL [facility] Magnesium Ionized ISE (Bld) [Moles/Vol]on 10-13-2023 Magnesium [Moles/Vol] 0.64 mmol/L Normal 0.45-0.74 [facility] Comment on above: Result Comment: NEW REFERENCE RANGE Performed By: #### P INR, 40541-8, 718-7, PLTCT, BMP, 03760-0 #### [facility] ([id number]) [address], [address] [place] [address] Magnesium [Moles/Vol] 0.24 mmol/L Critically low 0.45-0.74 [facility] Comment on above: Result Comment: NEW REFERENCE RANGE Performed By: #### 3 8230-9, 33938-2 #### [facility] ([id number]) [address], [address] [place] [address] Magnesium [Mass/Vol]on 10-12 Interpretation and review of laboratory results Abnormal [facility] Natriuretic peptide B [Mass/ Vol]on 10-13-2023 Natriuretic peptide B (Bld) [Mass/Vol] 1101 pg/mL High <100.0 [facility] Comment on above: Performed By: #### P INR, 87956-2, 718-7, PLTCT, BMP, 62878-5 #### [facility] ([id number]) [address] [facility], [address] [address] Interpretation and review of laboratory results Abnormal [facility] Natriuretic peptide B (Bld) [Mass/Vol] 1101 pg/mL High NINF - 100.0 pg/mL [facility] No Panel Informationon 10-12 [facility] Interpretation and review of laboratory results Abnormal [facility] Interpretation and review of laboratory results Abnormal [facility] Interpretation and review of laboratory results Abnormal [facility] PLATELET COUNT AND MPVon Platelet mean volume (Bld) [Entitic vol] 8.8 fL Normal 7-12 [facility] Comment on above: Performed By: #### P INR, 33872-9, 718-7, PLTCT, BMP, 74160-8 #### [facility] ([id number]) [address], [address] [place] [address] Platelets (Bld) [#/Vol] 158 10*3/uL Normal 150-450 [facility] Comment on above: Performed By: #### P INR, 61970-5, 718-7, PLTCT, BMP, 53305-4 #### [facility] ([id number]) [address] [place] [address] POTASSIUMon 10-13-2023 Potassium [Moles/Vol] 4.5 mmol/L Normal 3.5-5.0 [facility] Comment on above: Performed By: #### P INR, 92958-5, 718-7, PLTCT, BMP, 39076-3 #### [facility] ([id number]) [address] [address] Potassium [Moles/Vol] 3.1 mmol/L Low 3.5-5.0 [facility] Comment on above: Performed By: #### P INR, 60707-4, 718-7, PLTCT, BMP, 66121-6 #### [facility] ([id number]) [address] [address] PROTIME AND INRon 10-13-2023 INR Coag (PPP) [Relative time] 1.4 {INR} High 0.8-1.1 [facility] Comment on above: Performed By: #### P INR, 40599-0, 718-7, PLTCT, BMP, 70879-7 #### [facility] ([id number]) [address] [place] [address] PT Coag (PPP) [Time] 16.6 s High 9.8-13.2 [facility] Comment on above: Performed By: #### P INR, 90871-1, 718-7, PLTCT, BMP, 76399-6 #### [facility] ([id number]) [address] [facility] [address] [place] [address] Platelet counton 10-13-2023 Platelet mean volume (Bld) [Entitic vol] 8.8 fL 7 - 12 fL [facility] Platelets (Bld) [#/Vol] 158 10*3/uL [facility] Potassiumon 10-13-2023 Potassium [Moles/Vol] 4.5 mmol/L 3.5 - 5.0 mmol/L [facility] Potassium [Moles/Vol] 3.1 mmol/L Low 3.5 - 5.0 mmol/L [facility] Potassium [Moles/Vol]on [facility] Interpretation and review of laboratory results Abnormal [facility] [address] [facility] Protime & INRon 10-13-2023 INR Coag (PPP) [Relative time] 1.4 {INR} High [facility] PT Coag (PPP) [Time] 16.6 s High [facility] THYROID PROFILEon 10-13-2023 Free T4 [Mass/Vol] 1.15 ng/dL Normal 0.61-1.60 [facility] Comment on above: Performed By: #### P INR, 60890-2, 718-7, PLTCT, BMP, 80196-6 #### [facility] ([id number]) [address] [facility] [place] [address] TSH 1.80 uIU/mL Normal 0.49-4.67 [facility] Comment on above: Performed By: #### P INR, 07029-8, 718-7, PLTCT, BMP, 54212-3 #### [facility] ([id number]) [address] [facility] [place] [address] TROPONIN Ion 10-13-2023 Troponin I.cardiac [Mass/Vol] 9.76 ng/mL Critically high 0.00-0.04 [facility] Comment on above: Result Comment: Concentrations greater than or equal to 0.05 ng/ml are considered elevated. Elevations of Troponin may be due to causes other than myocardial ischemia. Recommend serial Troponin testing be performed. Performed By: #### P INR, 12694-3, 718-7, PLTCT, BMP, 41528-6 #### [facility] ([id number]) [address], [address] [place] [address] Troponin I.cardiac [Mass/Vol] 13.09 ng/mL Critically high 0.00-0.04 [facility] Comment on above: Result Comment: Concentrations greater than or equal to 0.05 ng/ml are considered elevated. Elevations of Troponin may be due to causes other than myocardial ischemia. Recommend serial Troponin testing be performed. Performed By: #### P INR, 80956-7, 718-7, PLTCT, BMP, 94284-5 #### [facility] ([id number]) [address], [address] [place] [address] Troponin I.cardiac [Mass/Vol] 13.88 ng/mL Critically high 0.00-0.04 [facility] Comment on above: Result Comment: Concentrations greater than or equal to 0.05 ng/ml are considered elevated. Elevations of Troponin may be due to causes other than myocardial ischemia. Recommend serial Troponin testing be performed. Performed By: #### P INR, 58834-1, 718-7, PLTCT, BMP, 45209-4 #### [facility] ([id number]) [address], [address] [place] [address] Thyroid profile includes TSH FT4on 10-13-2023 Free T4 [Mass/Vol] 1.15 ng/dL 0.61 - 1. 60 ng/dL [facility] TSH Qn 1.80 m[IU]/L [facility] Troponin Ion 10-13-2023 Troponin I.cardiac [Mass/Vol] 9.76 ng/mL Critically high 0.00 - 0.04 ng/mL [facility] Comment on above: Concentrations greater than or equal to 0.05 ng/ml are considered elevated. Elevations of Troponin may be due to causes other than myocardial ischemia. Recommend serial Troponin testing be performed. Troponin I.cardiac [Mass/Vol] 13.09 ng/mL Critically high 0.00 - 0.04 ng/mL [facility] Comment on above: Concentrations greater than or equal to 0.05 ng/ml are considered elevated. Elevations of Troponin may be due to causes other than myocardial ischemia. Recommend serial Troponin testing be performed. Troponin I.cardiac [Mass/Vol] 13.88 ng/mL Critically high 0.00 - 0.04 ng/mL [facility] Comment on above: Concentrations greater than or equal to 0.05 ng/ml are considered elevated. Elevations of Troponin may be due to causes other than myocardial ischemia. Recommend serial Troponin testing be performed. Troponin I.cardiac [Mass/Vol ]on 10-13-2023 Interpretation and review of laboratory results Abnormal [facility] Interpretation and review of laboratory results Abnormal [facility] aPTT Coag (PPP) [Time]on aPTT Coag (Bld) [Time] 48 s High 26-37 [facility] Comment on above: Performed By: #### P INR, 44668-5, 718-7, PLTCT, BMP, 84937-8 #### [facility] ([id number]) [address] [facility] [place] [address] Glucose Glucometer (BldC) [M ass/Vol]on 10-12-2023 Glucose [Mass/Vol] 173 mg/dL High 65 - 99 mg/dL [facility] Interpretation and review of laboratory results Abnormal [facility] Carotid arteries - bilate ralon [...] previous report no significant changes were noted. [facility] Radiology Study observation (narrative) [facility] US Carotid arteries - bilate ralOrdered By: Sal Morris on 10-06-2023 [facility] Work Phone: Blood Urea Nitrogenon 2023 Urea nitrogen [Mass/Vol] 24 mg/dL Normal 02-04 [facility] Comment on above: Performed By: #### B UN, CREAT #### [address] Creatinineon 01-24-2024 Creatinine [Mass/Vol] 1.07 mg/dL Normal 0.60-1.20 [facility] Comment on above: Performed By: #### B UN, CREAT #### [facility] [address] Creatinine Clr Calc Pharmacy 43.30 Normal [facility] Comment on above: Result Comment: PERF ORMED BY: [place] [address] PATHOLOGIST IT SECURITY PROJECT MANAGER LAURE BRANHAM M.D. Performed By: #### B UN, CREAT #### [facility] [address] GFR/1.73 sq M.predicted MDRD (S/P/Bld) [Vol rate/Area] 56.229 mL/min/{1.73_m2} Normal [facility] Comment on above: Performed By: #### B UN, CREAT #### [facility] [address] [place] [address] [place] BNPon 10-15-2022 Natriuretic peptide B (Bld) [Mass/Vol] 732.0 pg/mL Normal <=900.0 [facility] Comment on above: Performed By: #### C CONNER, ELEC, BNP, BUN, TSH #### [facility] [address] [address] [address] Feliz Hilton BUNon 10-15-2022 Urea nitrogen [Mass/Vol] 31.0 mg/dL Critically high 7.0-18.0 [facility] Comment on above: Performed By: #### C CONNER, ELEC, BNP, BUN, TSH #### [facility] [address] [address] [address] Feliz Hilton CBC AUTO DIFFon 10-15-2022 BASO # 0.0 103/ul Normal 0.0-0.1 [facility] Comment on above: Performed By: #### C BC ####[facility] [address] [place], [place] [address]UxDr. Feliz Hilton Basophils/100 WBC (Bld) 0.8 % Normal 0.2-2.0 [facility] Comment on above: Performed By: #### C BC ####[facility] [address] [address]Dr. Feliz Hilton EO # 0.1 103/ul Normal 0.0-0.7 [facility] Comment on above: Performed By: #### C BC ####[facility] [address] [address]Dr. eFliz Hilton Eosinophils/100 WBC (Bld) 2.3 % Normal 0.9-7.0 [facility] Comment on above: Performed By: #### C BC ####[facility] [address] [place], [place] [address]Dr. Feliz Hilton Erythrocyte distribution width (RBC) [Ratio] 19.8 % Critically high 11.0-15.0 [facility] Comment on above: Performed By: #### C BC ####[facility] [address] [place], [place] [address]Dr. Feliz Hilton Hematocrit (Bld) [Volume fraction] 36.1 % Normal 36.0-48.0 [facility] Comment on above: Performed By: #### C BC ####[facility] [address] [place], [place] [address]Dr. Feliz Hilton Hemoglobin (Bld) [Mass/Vol] 11.1 g/dL Critically low 12.0-16.0 [facility] Comment on above: Performed By: #### C BC ####[facility] [address] [place], [place] [address]Dr. Feliz Hilton IG # 0.01 10e3/ul Normal 0.00-0.03 [facility] Comment on above: Performed By: #### C BC ####[facility] [address] [place], [place] [address]Dr. Feliz Hilton IG % 0.2 % Normal 0.0-0.5 [facility] Comment on above: Performed By: #### C BC ####[facility] [address] [place], [place] [address]Dr. Mónicaaureliano Hilton LYMPH # 2.1 103/ul Normal 1.2-3.8 [facility] Comment on above: Performed By: #### C BC ####[facility] [address] [address]Dr. Feliz Hilton Lymphocytes/100 WBC (Bld) 43.1 % Normal 20.5-60.0 [facility] Comment on above: Performed By: #### C BC ####[facility] [address] [id number]. Feliz Hilton MANUAL DIFF REQ NO Normal [facility] Comment on above: Performed By: #### C BC ####[facility] [address] [id number][address] Feliz Hilton MCH (RBC) [Entitic mass] 28.7 pg Normal 26.7-34.0 [facility] Comment on above: Performed By: #### C BC ####[facility] [address] [address]Dr. Feliz Hilton MCHC (RBC) [Mass/Vol] 30.7 g/dL Normal 29.9-35.2 [facility] Comment on above: Performed By: #### C BC ####[facility] [address] [address]Dr. Feliz Hilton MCV (RBC) [Entitic vol] 93.3 fL Normal 81.0-99.0 [facility] Comment on above: Performed By: #### C BC ####[facility] [address] [place], [place] [address]Dr. Feliz Hilton MONO # 0.4 103/ul Normal 0.3-0.8 [facility] Comment on above: Performed By: #### C BC ####[facility] [address] [address]Dr. Feliz Hilton Monocytes/100 WBC (Bld) 9.0 % Normal 1.7-12.0 [facility] Comment on above: Performed By: #### C BC ####[facility] [address] [place], [place] [address]Dr. Feliz Hilton NEUT # 2.1 103/ul Normal 1.4-6.5 [facility] Comment on above: Performed By: #### C BC ####[facility] [address] [address]Dr. Feliz Hilton Neutrophils/100 WBC (Bld) 44.6 % Normal 43.0-75.0 [facility] Comment on above: Performed By: #### C BC ####[facility] [address] [id number]. Feliz Hilton Platelet mean volume (Bld) [Entitic vol] 9.5 fL Normal 9.5-13.5 [facility] Comment on above: Performed By: #### C BC ####[facility] [address] [id number]. Feliz Hilton PLT 273 103/ul Normal 150-450 [facility] Comment on above: Performed By: #### C BC ####[facility] [address] [id number]. Feliz Hilton RBC 3.87 106/ul Critically low 4.20-5.40 [facility] Comment on above: Performed By: #### C BC ####[facility] [address] [id number]. Feliz Hilton WBC 4.8 103/ul Normal 4.0-11.0 [facility] Comment on above: Performed By: #### C BC ####[facility] [address] [id number]. Feliz Hilton CREATININEon 10-15-2022 Creatinine [Mass/Vol] 1.02 mg/dL Normal 0.55-1.02 [facility] Comment on above: Performed By: #### C CONNER, ELEC, BNP, BUN, TSH #### [facility] [address] [address] [address] Feliz Hilton EGFR-AF [place]IZ[place] >60 Normal >=60 [facility] Comment on above: Performed By: #### C CONNER, ELEC, BNP, BUN, TSH #### [facility] [address] [address] [address] Feliz Hilton EGFR-NON AF CITIZEN [place] 54 mL/min/1.73m2 Critically low >=60 [facility] Comment on above: Performed By: #### C CONNER, ELEC, BNP, BUN, TSH #### [facility] [address] [place] [address] Dr. Feliz Hilton ELECTROLYTESon 10-15-2022 Anion gap [Moles/Vol] 14.7 mmol/L Normal [facility] Comment on above: Performed By: #### C CONNER, ELEC, BNP, BUN, TSH #### [facility] [address] [place] [address] Dr. Feliz Hilton Chloride [Moles/Vol] 109 mmol/L Critically high 98-107 [facility] Comment on above: Performed By: #### C CONNER, ELEC, BNP, BUN, TSH #### [facility] [address] [place] [address] Dr. Feliz iHlton CO2 [Moles/Vol] 20.6 mmol/L Critically low 21.0-32.0 [facility] Comment on above: Performed By: #### C CONNER, ELEC, BNP, BUN, TSH #### [facility] [address] [place] [address] Dr. Feliz Hilton Potassium [Moles/Vol] 5.3 mmol/L Critically high 3.5-5.1 [facility] Comment on above: Performed By: #### C CONNER, ELEC, BNP, BUN, TSH #### [facility] [address] [place] [address] Dr. Feliz Hilton Sodium [Moles/Vol] 139 mmol/L Normal 136-145 [facility] Comment on above: Performed By: #### C CONNER, ELEC, BNP, BUN, TSH #### [facility] [address] [place] [address] Dr. Feliz Hilton TSHon 10-15-2022 TSH 3.265 uIU/mL Normal 0.358-3.740 [facility] Comment on above: Performed By: #### C CONNER, ELEC, BNP, BUN, TSH #### [facility] [address] [place] [address] Dr. Feliz Hilton BNPon 07-16-2022 Natriuretic peptide B (Bld) [Mass/Vol] 1093.0 pg/mL Critically high <=900.0 [facility] Comment on above: Performed By: #### T SH, LIPID, ELEC, LIVER, CREA, BUN, BNP ####[facility] [address] [place] [id number]. Feliz Hilton BUNon 07-16-2022 Urea nitrogen [Mass/Vol] 23.0 mg/dL Critically high 7.0-18.0 [facility] Comment on above: Performed By: #### T SH, LIPID, ELEC, LIVER, CREA, BUN, BNP ####[facility] [address] [id number]. Feliz Hilton CBC AUTO DIFFon 07-16-2022 BASO # 0.1 103/ul Normal 0.0-0.1 [facility] Comment on above: Performed By: #### C BC #### [facility] [address] [place] [address] Dr. Feliz Hilton Basophils/100 WBC (Bld) 1.3 % Normal 0.2-2.0 [facility] Comment on above: Performed By: #### C BC #### [facility] [address] [place] [address] Dr. Feliz Hilton EO # 0.3 103/ul Normal 0.0-0.7 [facility] Comment on above: Performed By: #### C BC #### [facility] [address] [address] [address] Feliz Hilton Eosinophils/100 WBC (Bld) 7.2 % Critically high 0.9-7.0 [facility] Comment on above: Performed By: #### C BC #### [facility] [address] [place] [address] Dr. Feliz Hilton Erythrocyte distribution width (RBC) [Ratio] 23.4 % Critically high 11.0-15.0 [facility] Comment on above: Performed By: #### C BC #### [facility] [address] [place] [address] Dr. Feliz Hilton Hematocrit (Bld) [Volume fraction] 30.8 % Critically low 36.0-48.0 [facility] Comment on above: Performed By: #### C BC #### [facility] [address] [place] [address] Dr. Feliz Hilton Hemoglobin (Bld) [Mass/Vol] 9.1 g/dL Critically low 12.0-16.0 [facility] Comment on above: Performed By: #### C BC #### [facility] [address] [place] [address] Dr. Feliz Hilton IG # 0.01 10e3/ul Normal 0.00-0.03 [facility] Comment on above: Performed By: #### C BC #### [facility] [address] [place] [address] Dr. Feliz Hilton IG % 0.3 % Normal 0.0-0.5 [facility] Comment on above: Performed By: #### C BC #### [facility] [address] [place] [address] Dr. Feliz Hilton LYMPH # 1.5 103/ul Normal 1.2-3.8 [facility] Comment on above: Performed By: #### C BC #### [facility] [address] [place] [address] Dr. Feliz Hilton Lymphocytes/100 WBC (Bld) 37.3 % Normal 20.5-60.0 [facility] Comment on above: Performed By: #### C BC #### [facility] [address] [place] [address] Dr. Feliz Hilton MANUAL DIFF REQ NO Normal [facility] Comment on above: Performed By: #### C BC #### [facility] [address] [place] [address] Dr. Feliz Hilton MCH (RBC) [Entitic mass] 23.9 pg Critically low 26.7-34.0 [facility] Comment on above: Performed By: #### C BC #### [facility] [address] [place] [address] Dr. Feliz Hilton MCHC (RBC) [Mass/Vol] 29.5 g/dL Critically low 29.9-35.2 [facility] Comment on above: Performed By: #### C BC #### [facility] [address] [address] [address] Feliz Hilton MCV (RBC) [Entitic vol] 81.1 fL Normal 81.0-99.0 [facility] Comment on above: Performed By: #### C BC #### [facility] [address] [address] [address] Feliz Hilton MONO # 0.4 103/ul Normal 0.3-0.8 [facility] Comment on above: Performed By: #### C BC #### [facility] [address] [address] [address] Feliz Hilton Monocytes/100 WBC (Bld) 10.3 % Normal 1.7-12.0 [facility] Comment on above: Performed By: #### C BC #### [facility] [address] [address] [address] Feliz Hilton NEUT # 1.7 103/ul Normal 1.4-6.5 [facility] Comment on above: Performed By: #### C BC #### [facility] [address] [address] [address] Feliz Hilton Neutrophils/100 WBC (Bld) 43.6 % Normal 43.0-75.0 [facility] Comment on above: Performed By: #### C BC #### [facility] [address] [address] [address] Feliz Hilton Platelet mean volume (Bld) [Entitic vol] 9.0 fL Critically low 9.5-13.5 [facility] Comment on above: Performed By: #### C BC #### [facility] [address] [address] [address] Feliz Hilton PLT 285 103/ul Normal 150-450 [facility] Comment on above: Performed By: #### C BC #### [facility] [address] [address] [address] Feliz Hilton RBC 3.80 106/ul Critically low 4.20-5.40 [facility] Comment on above: Performed By: #### C BC #### [facility] [address] [address] [address] Feliz Hilton WBC 3.9 103/ul Critically low 4.0-11.0 [facility] Comment on above: Performed By: #### C BC #### [facility] [address] [address] [address] Feliz Hilton CREATININEon 07-16-2022 Creatinine [Mass/Vol] 0.87 mg/dL Normal 0.55-1.02 [facility] Comment on above: Performed By: #### T SH, LIPID, ELEC, LIVER, CREA, BUN, BNP ####[facility] [address] [place] [address]DrJuan F Hilton EGFR-AF [place] >60 Normal >=60 [facility] Comment on above: Performed By: #### T SH, LIPID, ELEC, LIVER, CREA, BUN, BNP ####[facility] [address] [place] [address]DrJuan F Hilton EGFR-NON AF [place]IZ[place] >60 Normal >=60 [facility] Comment on above: Performed By: #### T SH, LIPID, ELEC, LIVER, CREA, BUN, BNP ####[facility] [address] [place] [address]Dr. Feliz Hilton D-DIMERon 07-16-2022 D-DIMER 0.89 mg/L FEU Critically high <=0.59 [facility] Comment on above: Performed By: #### D DIM #### [facility] [address] [address] [address] Feliz Hilton D-DIMER COMMENTS SEE BELOW Normal [facility] Comment on above: Result Comment: Incr eases [...] hospitalization. Performed By: #### D DIM #### [facility] [address] [address] [address] Feliz Hilton ELECTROLYTESon 07-16-2022 Anion gap [Moles/Vol] 13.9 mmol/L Normal [facility] Comment on above: Performed By: #### T SH, LIPID, ELEC, LIVER, CREA, BUN, BNP ####[facility] [address] [place] [address]Dr. Feliz Hilton Chloride [Moles/Vol] 111 mmol/L Critically high 98-107 [facility] Comment on above: Performed By: #### T SH, LIPID, ELEC, LIVER, CREA, BUN, BNP ####[facility] [address] [place] [address]Dr. Feliz Hilton CO2 [Moles/Vol] 21.4 mmol/L Normal 21.0-32.0 [facility] Comment on above: Performed By: #### T SH, LIPID, ELEC, LIVER, CREA, BUN, BNP ####[facility] [address] [place] [address]Dr. Feliz Hilton Potassium [Moles/Vol] 4.3 mmol/L Normal 3.5-5.1 [facility] Comment on above: Performed By: #### T SH, LIPID, ELEC, LIVER, CREA, BUN, BNP ####[facility] [address] [place] [address]Dr. Feliz Hilton Sodium [Moles/Vol] 142 mmol/L Normal 136-145 [facility] Comment on above: Performed By: #### T SH, LIPID, ELEC, LIVER, CREA, BUN, BNP ####[facility] [address] [place] [address]Dr. Feliz Hilton GLYCOHEMOGLOBIN A1Con 2022 ADA RECOMMENDATION SEE BELOW Normal [facility] Comment on above: Result Comment: ADA RECOMMENDED LIMIT 4.0 - 6.0 ADA THERAPEUTIC TARGET < 7.0 ACTION SUGGESTED > 7.0 Performed By: #### A 1C ####[facility] [address] [place], [place] [id number]. Feliz Hilton Glucose [Mass/Vol] 120 mg/dL Normal [facility] Comment on above: Performed By: #### A 1C ####[facility] [address] [place] [address]Dr. Feliz Hilton HbA1c (Bld) [Mass fraction] 5.8 % Normal 4.5-6.2 [facility] Comment on above: Performed By: #### A 1C ####[facility] [address] [place] [address]Dr. Feliz Hilton LIPID PROFILEon 07-16-2022 CHOL-HDL RATIO NORM SEE BELOW Normal [facility] Comment on above: Result Comment: 3.3 - 4.4 LOW RISK 4.4 - 7.1 AVERAGE RISK 7.1 - 11.0 MODERATE RISK >11.0 HIGH RISK Performed By: #### T SH, LIPID, ELEC, LIVER, CREA, BUN, BNP #### [facility] [address] [place] [address] Dr. Feliz Hilton Cholesterol [Mass/Vol] 107 mg/dL Normal <=200 [facility] Comment on above: Performed By: #### T SH, LIPID, ELEC, LIVER, CREA, BUN, BNP #### [facility] [address] [place] [address] Dr. Feliz Hilton Cholesterol in HDL [Mass/Vol] 52 mg/dL Normal 40-60 [facility] Comment on above: Performed By: #### T SH, LIPID, ELEC, LIVER, CREA, BUN, BNP #### [facility] [address] [place] [address] Dr. Feliz Hilton Cholesterol in LDL [Mass/Vol] 30.2 mg/dL Normal [facility] Comment on above: Performed By: #### T SH, LIPID, ELEC, LIVER, CREA, BUN, BNP #### [facility] [address] [place] [address] Dr. Feliz Hilton Cholesterol.total/ Cholesterol in HDL [Mass ratio] 2.1 {ratio} Normal [facility] Comment on above: Performed By: #### T SH, LIPID, ELEC, LIVER, CREA, BUN, BNP #### [facility] [address] [address] [address] Feliz Hilton HDL NORMAL > or = 60 mg/dl - LO W CARDIOVASCULAR RISK <40 mg/dl - HIGH CARDIOVASCULAR RISK Normal [facility] Comment on above: Performed By: #### T SH, LIPID, ELEC, LIVER, CREA, BUN, BNP #### [facility] [address] [address] [address] Feliz Hilton LDL CALC NORMAL SEE BELOW Normal [facility] Comment on above: Result Comment: <100 mg/dl OPTIMAL 100 - 129 mg/dl NEAR OR ABOVE OPTIMAL 130 - 159 mg/dl BORDERLINE HIGH 160 - 189 mg/dl HIGH >190 mg/dl VERY HIGH Performed By: #### T SH, LIPID, ELEC, LIVER, CREA, BUN, BNP #### [facility] [address] [place] [address] Dr. Feliz Hilton Triglyceride [Mass/Vol] 124 mg/dL Normal <=150 [facility] Comment on above: Performed By: #### T SH, LIPID, ELEC, LIVER, CREA, BUN, BNP #### [facility] [address] [place] [address] Dr. Feliz Hilton VLDL CALC 24.8 mg/dL Normal [facility] Comment on above: Performed By: #### T SH, LIPID, ELEC, LIVER, CREA, BUN, BNP #### [facility] [address] [place] [address] Dr. Feliz Hilton LIVER PROFILEon 07-16-2022 Albumin [Mass/Vol] 2.6 g/dL Critically low 3.4-5.0 [facility] Comment on above: Performed By: #### T SH, LIPID, ELEC, LIVER, CREA, BUN, BNP #### [facility] [address] [place] [address] Dr. Feliz Hilton Albumin/Globulin [Mass ratio] 0.8 {ratio} Normal [facility] Comment on above: Performed By: #### T SH, LIPID, ELEC, LIVER, CREA, BUN, BNP #### [facility] [address] [place] [address] Dr. Feliz Hilton ALP [Catalytic activity/Vol] 63 U/L Normal 46-116 [facility] Comment on above: Performed By: #### T SH, LIPID, ELEC, LIVER, CREA, BUN, BNP #### [facility] [address] [place] [address] Dr. Feliz Hilton ALT [Catalytic activity/Vol] 18 U/L Normal 14-59 [facility] Comment on above: Performed By: #### T SH, LIPID, ELEC, LIVER, CREA, BUN, BNP #### [facility] [address] [place] [address] Dr. Feliz Hilton AST [Catalytic activity/Vol] 23 U/L Normal 15-37 [facility] Comment on above: Performed By: #### T SH, LIPID, ELEC, LIVER, CREA, BUN, BNP #### [facility] [address] [place] [address] Dr. Feliz Hilton BILI, CONJUGATED 0.1 mg/dL Normal 0.0-0.2 [facility] Comment on above: Performed By: #### T SH, LIPID, ELEC, LIVER, CREA, BUN, BNP #### [facility] [address] [place] [address] Dr. Feliz Hilton Bilirubin [Mass/Vol] 0.1 mg/dL Critically low 0.2-1.0 [facility] Comment on above: Performed By: #### T SH, LIPID, ELEC, LIVER, CREA, BUN, BNP #### [facility] [address] [place] [address] Dr. Feliz Hilton Globulin (S) [Mass/Vol] 3.1 g/dL Normal [facility] Comment on above: Performed By: #### T SH, LIPID, ELEC, LIVER, CREA, BUN, BNP #### [facility] [address] [place] [address] Dr. Feliz Hilton Protein [Mass/Vol] 5.7 g/dL Critically low 6.4-8.2 [facility] Comment on above: Performed By: #### T SH, LIPID, ELEC, LIVER, CREA, BUN, BNP #### [facility] [address] [address] [address] Feliz Hilton SED RATE WESTERGRENon 2022 SED RATE 14 mm/hr Normal <=30 [facility] Comment on above: Performed By: #### S EDR ####[facility] [address] [place] [id number]. Feliz Hilton TSHon 07-16-2022 TSH 5.167 uIU/mL Critically high 0.358-3.740 [facility] Comment on above: Performed By: #### T SH, LIPID, ELEC, LIVER, CREA, BUN, BNP ####[facility] [address] [place] [id number]. Feliz Hilton VITAMIN D 25 OHon 07-16-2022 VIT D 25-OH 22.4 ng/mL Normal [facility] Comment on above: Performed By: #### V ITAD ####[facility] [address] [id number]. Feliz Hilton VIT D RANGES SEE BELOW Normal [facility] Comment on above: Result Comment: <20 ng/mL Vit D deficient 20 - <30 ng/mL Vit D insufficient 30 - 100 ng/mL Vit D sufficient >100 ng/mL Potential Toxicity Performed By: #### V ITAD ####[facility] [address] [id number]. Feliz Hilton MG MAMM SCREEN 3D RELL CADon 06-14-2022 MG MAMM SCREEN 3D RELL CAD Patient: ASHVIN RENE Exam Date: 06/14/2022 : 1955 Gender:F Ordering : DR TUSHAR SOLANO D.O. Admission #: [id number] Family : Order #: [id number] CLICK HERE TO VIEW EXAM RADIOLOGY REPORT [...] Treatments None Family Cancers None LOCATION: [facility] BREAST COMPOSITION: Scattered areas fibroglandular density. FINDINGS: [...] MD on 06/14/2022 at 14:19 Normal [facility] XR hand RT min 3V*on 022 XR hand RT min 3V* [facility] [employer] Other XR hand RT min 3V* [facility] [place] [employer] Other XR hand RT min 3V* [address] [place] [address] Rele[employer] Other XR hand RT min 3V* [place] [address] [employer] Other XR hand RT min 3V* XRay Report [employer] Other XR hand RT min 3V* Signed [employer] Other XR hand RT min 3V* Patient: Annette Rene MR#: [id number] [employer] Other XR hand RT min 3V* 20 [employer] Other XR hand RT min 3V* : 1955 Acct:[id number] [employer] Other XR hand RT min 3V* Age/Sex: 66 / F ADM Date: 05/20/22 [employer] Other XR hand RT min 3V* 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 [employer] Other XR hand RT min 3V* No fracture, disloca tion or focal soft tissue abnormality seen. Degenerative changes and [employer] Other XR hand RT min 3V* atherosclerosis. [employer] Other XR hand RT min 3V* X R/XR hand RT min 3V* [employer] Other XR hand RT min 3V* IMPRESSION:No acute findings [employer] Other XR hand RT min 3V* Impression dictated by: Rodrick Galvin M.D.05/20/2022 11:13 AM [employer] Other XR hand RT min 3V* Dictation Location: [place] [address] [employer] Other XR hand RT min 3V* Transcribed By: HERNAN 05/20/22 1113 [employer] Other XR hand RT min 3V* Dictated By: Amadou Galvin DO 05/20/22 1111 [facility] [employer] Other XR hand RT min 3V* Signed By: [facility] [employer] Other XR hand RT min 3V* 05/20/22 1113 [facility] [employer] Other Coding Summaryon 08-21-2021 Coding Summary HTMLBase 64 ZjztdtstSCh5sRc+PGhlYWQ+PE 1RVVMxT36xtUDjwC2OF7zSHV1K CUVZXFQPSV0IEO9hjTH2BCwpL1 VybiAv YwlfrUNrLF95OUa6RNL6cMpeNA yhxR8jkTYqM3g3IeHfZR90vZ29 NVbzQUNkPhL9SxDdjdmcjSHk Y5wnKfNdiREdNfr+PHRhYmxlIH zrRRDoAZztWCPnPoGwoWanUM5z La6hMDUsXDRrdWcgxKLbPcCk z0dmPENvHOxvLO4mjXvyN3CrgE U4WYTid2v8Ix73xLR+PHRkIHN0 gZjsRPxop513NiQeq8npMWV8 mVPbROcpOEB6C89ia1L4LAPqKU LqSFH4aJN1lI2cmRguvigtN2Ji aJHxOqQ9DSR2zGRcjT5uiJcl htbkeA4jWuw+W89SMY5ZWSABXB 1RFon8I6BfEzwbrKB+EW42ASGf XU44cXWwpJCxr2igeLr6PxMo DBWvQDW2iWudLSazo4TgRJXwX7 4azSZib4G5OJYdfTgdbRMaMcIh uLJ2bP7fRIskzjctw3ivxigx Kqoso9tkrg87tV41B98xGMkxBQ AwECF4TXOjGCWjfFirno0rkR0b Ii8+VQduk5vxv5jhqSo1UhLf UKDhcpMqpNxvBAZ4o5DjBu68E7 DsrQrvu1CiWdr6wf55iOEkf5O6 hIT7YGxtPACntZ9lRIlmCpN4 HGPkGbBwpS10dQBpJBruDk7rcQ nraSmvIT8pYQUtypocDSLypU9a JGXihBQznUowJV8aAQRxctmn e993BrRmESB9NCLbpMImE6InnO 5cDhRqUYDhVUYcH9BdrKMnOVsn P268PTucIjX1NUFcwiHmC5Tg PRFwmGmjYzT5n6L9Wb0Zd1Htsb rzEQD0DJmkTPRmLwX1NrIlWcK3 G0BzQwf1JDKtkWofIW4qB4Ph AZPviagcapovmFJ5MFFiEVEdjD 17cTBxUEgdKc3fn4S3n563NMDc OOAqbR39Tl7roDufKLRsnNWX uV8yyapyz7dmrhfhMbDzBUKbUQ g3QNt1BJHshPmyMmZfQNJ3ZsA3 PCY0eZQckY9tbDgjcngjfK9c Oyc+R16cpV2tYCP7PKB7ieopSY HfckIdPY08UT07B3XwCbrayEFk bGU+FJDhkjXvlWzzUD4rCrUn h6nrp9OsFPoaQ1JeMOSfVHqyMv k8NBRtXHE7nPJ3aO2aFMRbKKww y5E6cZF5D0ZjfxQwfi8ch9oa CZUxMRxkF48buLXah3Y2CKPwnC H1RJEykXrdZxPrgK67Tkm+PGNv rLrag6IkKdgkc2zam6sgjIh4 RnZpMLKpdoNegPxyJFE0y0QkKd 92A37oOBtrVMPxONZiZZEmQLVr jPsrrq2oqP3aOc4+PGNvbCB3 pLZ2hB5zTMLwInM3RZpeF042Aq ZxeGNcShulh4enj5wnmLj8GqUj LIXrpuYzmXuvLKT7j4DtTi67 Y90jQHzgHCVmRSTaRRUeUFLkgN jkod9ijL7mVf1+BN7np9isrm26 iZ00wWF+HSKmIDT3lIlbHAzd VAPmnH5mBKpgCrT3GMWwHdBykV 29vHKaYSglSn0bjRxhdHyjNP6v IFOnojyjb198CjBbr1weTEHq nMAnVNlbWEB6A82zu7G3LJDjHY KaYWQ2sJK5qL8noYfinunawSUx zGqmxhVauWskMRpnHZtqF837 IHRvcDsnPlBhdGllbnQgTmFtZT x8F8JqRbh3QUQojUdrZZ0sdBQl OQjgKk6wkLghhQbeJM3kEJKp zyjmg792FvPis0orRPOrkKPoGN fuRGI5H07xh6J1CSBiXSNiXDP9 lMP5xU3jeOuqalzbmUMvpHjh iaUlnWztBGmlNEodX178YTIemW yhCiVpkwSaRARvzWL6TZ95NP79 aVZkf6X8xHO0A6CeYJMazlcb gglfqPD9GMZdZIEqtF23Dr2uzG ftTn4gYSWjEXB7EMJhyACuF7Ud sC3vRzIcMHTvDOViS6ZebAOe OCpwK747SGtbJvM3GJKciyKeD0 SaACAhrLayPgZ2l1J0Ub7OC3O2 JH54HX51tKBqb7C7eZT9A9Em IRMchsnlibhcsUI4AMBeDXTdvS 40Zo7isHobWn2lARNjVTI8KTNo tCEaP5NwqB1xSfHqFQEoGRKg Y3JndYSsZRgkB535AWahUbA7IN FhniVbN8QvYFPiwDycThQ4m5Z1 Py1NSEp4FI42DY90hJJcm8Z3 qMH5Y3VvZQUlxsulpgwzoDX6KD EmCQGifF76Ns3kmMdqMv7gDOSt QKM7SOSncFIbT1RdyT4iRbLz LALoSMIvN0YvqOQwRLsaO158ZY hfUbP2YCDcbmWwR0FiZCUhvDmj UqP5v8U1Hy1IFXMmCZ01YSG8 uBB3VM31QP52I4CkArskvWNfgT U+PHRhYmxlIHdpZHRoPScxMDAl KmVavAqkDZ4nJg0nJAXvQCWx wBdumXXqQcSpp5euHBNrRKqiFS 3dmHyhY1UueFI0TBPkd7a3Np18 S21hQ0OnjGT+QHVmgUI8aEG0 uB3gReDuJnK1XRlgX751DjGlpA JwWxpxc3xhw3spuYv7HlP8YTOq zpTudDjlOFM3m6CsWe54N01b IHdpZHRoPSIxNSUiIHZhbGlnbj 6lcG6kFo9+MQWyeOY1cNH5oK2u AjLlNyM4GEcgE478XgJbrILg Dkabw2zkc0pqvGi4KyPfAFDxfn WcfMdzMAA7l9AzCi08Q0BfwAbj s4WqGfg1nt76qMMoc9K4sFE3 W2XpPBTcjjtegWUhhCzcFZ5sHS DeswcrCYPfxP0vLOIiZ5p2ZgXk DtQ7OQhkJ7AcwsK6ONSsmPPh QWysMEB5C02cw4F0AYUbYOEaSA F9iDO8jQ1prJzavbhxqZImuGof ysAvgBttRIvfWYvaH898BGVk wPweHGWleL5qYKHuuAWabTkeJX 1zLURlesahUbvTEr5FCusxE2UV XP6hXUkcrMX+MHUgWQC9qDsl QVpdAODuuS0kTWCbX4h2OxOnZt I9SVclC3MmQOYklzajGs55vX1b KlKeDbC1ZRfmP0EaikQ9MVAr vHQzLDumNRH6Z21cv7G0XTYsKY SlCLX3cXV0yD3xpCmqhsowiCAc sZeqpzYmgLcdJJvqWPvjK132 VLLvpGqoMwV3FqT4KhD0EFH8Q7 TsYlh0BRJmhUytQB2jdFDvMDly Pp5eaOvqdRhwJD9oZJPpdytd MWEeoN8gBNAnfLWzkCfrQP9yOB Ymydbaf125WcLdKEG7EQEhzCCx F2FedX8vTrGwUTXsJXKdB2Ku iCCdYQkoA806RYvuKeL4SYGtjl EmJ4JcNCAszGqvBcT2a7Z6Uq10 NyBZZWFyczwvdGQ+PHRkIHN0 nXqkLKgaGASeiS9qZMKmB7q7Sr LsJyM2JJyyS9YtTUNjrgwmSf53 yG9zGvXnTzY2EZoyD7NtuoV0 RIWwmDXbYMqePDJ1Q38qh8M6DK QbKUElDBR9bCO2eQ0ofRpgqlpw bGVmdDsgdmVydGljYWwtYWxp J770UDXkhCktJcSZHPSQWWywyR Q+PNYyFJV1sZsjFDgxFHDioI3t FBKmY4k4OvOoJpI7HCkmF0Sv VKBeoetsVg61jW9dIvPxLhY7BU jaV1LogwM1VBKjhSDeMQamIOL0 D02zz3J1LBHwBDVpDRE2cCE8 eY1onRcxmdpnnIRamLmdtvVmxF eqCDekRFdlP965WHXrpOvaKc9y z6DafvP8mP0bSI56RU40Z7Xl PjwvdGFibGU+PHRhYmxlIHdpZH KiHBldRVUkIqZshPoyYY0cRn1q NMYfSFAdkHfymSKoBpVkd9ua PEClANxjNF8ubLpvY1QclJI1IK Mri5b4Zi75W55lI6XgtUQ+PGNv lIC6nXG0eY6vXwRmYoC0BJrs H981BqTiaRDiXgoch4hiv1slfW x7QwNeFQEpzvDqlGdsPOZ4o2Yq Iu98N86oVFrlSVTeXLZvSJCd OWDbqGetlp8izU4vLs7+PGNvbC V1zMX6fX3cJtAvKeG6RVheD013 BaMuhRWdHpoxB28gH5IpjMU+ XWJoMyl8UPLptNwcKH7tgHXyBQ sjNa8pWLK0KlTmSxPbJMzeM9Yl DEZrfnsksesqwDK5FNKiQWUj vE79Ex9sgDxjZu7jLCOdXNU5NZ YruAYbW5FatK8nYsWoGDHxCCYm K1OgzVTfXVedG082UPzjRhB6 CNXnblKhT2GaQZFipZevAmW4r6 H3As5CrKzkdNAmVF1rJbWyCWg8 F5TzSwn8XHIknYcoEW8yoPIt JPxxJa3wnTtnoEewWC1sCZFugi dea103GoIjj6yrOWPtvHXqQLjf IHM2U23xs7N3ZUGzDKZiARG6 zXQ5iO9djUekqbzlzTElxYbrqu OlhTbjNTlxLYfqB516BJPtwHvz DhKBZno6E9MoXrj2NHLxbYdz BJ3mlGNkMSyiJt4qcNiikAkfQH 3kYNJpfqqpn489KrIpv8qmSKIz jQDpFMfiTMO4Z65vn5C6ENZu VCWrLYQ0qUA5nA6vrQyejomoaR DllAjjtrMqsNtnMEgnNKliV849 FSHwpNmbDl6BRgu6P5JpUoh9 HULcvUjuQZ6arLRpGLkyUj9ekI tsfQkhCX1rFHHwtlvvw912QpHa n1piPSHtfCUiIGiiQEE1Z66r i2K4FBKwKOTjERO5jAZ6oB7ppG lnbjogbGVmdDsgdmVydGljYWwt FUkpW298YBFrxPowSwUdrHFl OjwvdGQ+PB26rz69Z2LqZjuoRg n2QKJfCNI3sDO6hO3kOCEeDQkw c6Q4aRS2D1AkauAiuy3rf3yt YXB (more content not included)... [facility] Coding Summaryon 08-20-2021 Coding Summary HTMLBase 64 PyrjoikdOSp6cZd+PGhlYWQ+PE 4RJCSfZ53nzCZfaO4WW3hTYK3U ARXUIUGPOS0DVM5reWO5BHsjV1 VybiAv MzxdoVThWU20MOg2TGH9hVwoTB dvaA2tlVQfB0w2WeDzEO63oE77 XWzgXBDnLeB9VcSvgehueMBy K3wnFbOkkTYzOky+PHRhYmxlIH gnTGGlCOdoYYXyOeYogMuxNG4v Sl6rAEStOOWwxNkbaAJqPmKp r8yoYHIdDQlxSU3ljEgvV4IqrI P1ZJXom4o1Yo36iMF+PHRkIHN0 cEfyGUpwj805GsUbd3afXAI0 hUAjICrsVDD4E67zo2Y0YQAzJU CfGWH5wHY1sR9svTyhuswjB3Sz ySRhTcX7VWJ1uNVnyQ4zgRek zgwqdY2mWko+N03AZS5QXCTGBT 1HRdq0I6HkExteiSK+HB67BEWt BZ73lFUgaALgn4oopHw7YoPe WCBpIHX8cFfaJRwlu8SdOHUfE6 2ynLNex5E1TWFoyUpjsLIzXnMx fMB1yP2lONyhaqepr5ghxdts Qvscc3cwso92hG68E00sOYmqUU KiIKH9ZXFaSYMizBecgu3chL3j Ii8+UGvsb6bup1extAl8PxLd VDAeyaGpgDalUKQ0z6SfVs44C7 VibUqvr8HdCce8df73tILln4Z7 oRU6PEsjJQFsiZ8tPKyqUeL3 UXLaDuKcgF33gWWvZRuaVv1jdJ dgdVicNT3bVFDccwxkUBCapZ9k AFWzbXWbsZkqZL8xZSVwvkxz e788OcJlZRF0XOMaqOGuP6VhmV 1hQxDdPSKrRBWgU3QgrMFkMQqd O826LBnhDlH3AENrftOmM4Jc NZPtnErgEoE5g0U0St1Dc6Gyen htIFM6EDyeICEcHaT3IuHyAtS9 K5XyUvw5JDPvjYesNU6iH5Ay MTPyxypnbxrweST3BQZrVEKlyH 66cTKhSQqzJq4jr2E9t903WFOf KKEniX90Ym7fuBloJMEmtPSU dG1nlhnle2ubkslaQdBbKJCaBN t1CBm4LHGtyEmoFeXiHGM6IhM2 KNL4mRGzuG8ygIzlgxllaH5z Oyc+L78ppS3pHYI0NLN4dvvkOG MrdnXhSW06NE40O9XyXhsjvMXt bGU+JVZowfCckTayLZ7aIxGc d6zpf7YbIZbjL4OnXCGkHGssDu a8EEIlRJM8lNO8iX2iKCJtABqc y6F0hPB7J8VpmkKdyp9hd5et IKYoAFgkW55haPOop3Q1YULhzP O8BCBotExyJpRqbQ86Qpj+PGNv zWzpe8JvRjkan8swr7gczBi5 TdDzXHOnrmRniCffMLU0w2OpEp 39K60tSYdpBRKeCVKrQTDgJZCt zHttvz3enV2rHq6+PGNvbCB3 dIT2jQ7wZSXkXuE5PQsqA961Sc McfUEyFespo6gdp4rsnBq6FmWi NHPcboJunWttSWM1c1BsTm98 Y69xHGybCHMbWPZbVLNpDJWvgR kgcm6whH1aJk0+OB6de3hhca63 bJ77nGE+SVTwXTY4xLrhVTrg OISlxN1gDFhpJnJ6VIVwMbKtlS 30wVQfBDxdRh0rjIezpXpnTD6o ZRUedvblc213NpJtj4wrYNIy nRYwEKiaWDE4I94hv4T1RAEyOU BvXXQ1gON9eJ0dnSwwjieltACu fSwddjYrcTwcDKqmTBdpX010 IHRvcDsnPlBhdGllbnQgTmFtZT e2Z2FmAli0VNLhoGjtMF2aqXKq GBqdWk1njYtmsElkHH4qBAZv npknk741ThGeq9txMZVswSKlTF roMXT4U44of5Y2IBVjHBJuLNU7 gOZ6dR6jdAngnnpquEArgAkq vzSnjSiyGIfvQWasP416YTQnzD fhXzOqtlKzDKWrsAZ1CI87DZ88 qLXcc2J0kWF2L4YcOFDfxldj olmmoWW9DMCnNQDznV18Co9shU ivSi7wWQPbZIQ7CUSzuGNpV5Gf sS6tNwCdKFMeUNXpD5ZkmFCz KFnxA005SAypOnH9DYEzspMcJ3 InTFOfzEwfElV9g9A3Um3TP5I4 TD28HJ13kAUso4E0bJJ2Z4Sq GFMlgcbiogjjzJQ5OBStEWXtbV 10Qa0xlJcvSg1sJMEhTET4NZFe fBUcS3TweY4tHqGjDTQeGTUa S1NrvHDrTKurQ226WIvkZvB4KU KebsCaW7EiPCRqhKbxKeN7f8J7 Ky2RCZa6JF44TL18bRShb3Q0 eFN7B1NpNTVbjirswvtzqLG3NF EyLWDemO07Lu7gcCngOy3qWZSw QMS4ZJXznWHiA9GifC7uEsIi REVgFSDvQ8LksSWyFNqsA253AX opIfG6MVXujeSxZ7HwFZYtjNdn UoS9t5W8Gd9NTVPiAA66HNT5 eXS4TL24VH33R8JlDbdpwYDkzO U+PHRhYmxlIHdpZHRoPScxMDAl PyNxaQjjZH5jWl4mMLGyHTOi oOxjsKMpRmCod8dvYFLxZLrgNU 6buTrsC8BreTO9WJQyo4d1Wk22 G21rR2JzhGH+RARwbYD6oHH2 jD1oOwYaBjE9OQzuN533OyHopZ IgRpbcd7byx2jvzVk8MlY5NBXv dgMtuRcrMOS9k0CgHz52K00w IHdpZHRoPSIxNSUiIHZhbGlnbj 6ydF0yFa4+WQLyiAI1vKD0eY5c UiRtKiN7ZCrtT625ZuXfvJBf Pkhkm6qnn1pdrHa5JiYfNYJirg TbhVvfGEE5c6MfNo98O4IhqLde i1GpAxu0kc07wWJfy6P7uNL3 J2BbOSYxjhgfhUGttGdtMB2wFH AxlodaVMKukJ1bANWrZ1e0JpOh BoH9LClfM3SpohN1XBSsnGJu BBibCHI1S83tb9C7VGMwMFBkQR J6kIA3cG0exMauuahslTQixUbg qcVknPwnBMvzEJcaF634WQJa gAnvWTQhuL2hLLAfgWUzuTuuLG 0eBFRdfvsbGjjWPu2TBropX7KY KX4aLZtjyHX+PYPmCUX4qAnk UVssLCZumW8sVVHaZ8z7DqRuZr C5KXntX6DmWDRvihedCm29kE9f DeBoJrN7PIgfG9YkepA5ZIZi pRSpXQopELP5R63mq4O4PPRxRW AmKKW8aJH8xB8psHnmcwswrFRr hDgyhvCqaLetEZnsUGleV598 EVGjfXdjFtS4NtR4NpL3OUU5K3 QiEiz4WAFnlSdbIZ5hsDDzHIkt Js8mzUwryJusUK8cMDLynike IZDyxC2fABGccACgcOwnWH5eIB Kgndkrv523HzRsHYJ7MBJcfRDr M0MwiU4mAjLqSMHcRKFsA8Oq gILsYCtyW781OBwnLqH9BLLpfc KrV4IbFDMxfXahPaB0s4H5Ff11 NyBZZWFyczwvdGQ+PHRkIHN0 hLdcFJrfDDRlfO7eQZEaM9n6Du AvMtZ3YKdiB7DmTFPmqcjqLw31 qA4lRtPkAwO5ADzwP8AsggF3 BFOsgFDfQGygOUV4Q69qt1B1ZQ UrTURdHIT0wPS8gZ0bhWzxccvk bGVmdDsgdmVydGljYWwtYWxp V723SJGglQamVaNSUUQRJIbrtH Q+QFFyAYC7mBfgUUlqZHHunO0x DUIaN4m6UcQqMnJ8AGynS7Oe UINxfbxfTk31aB5yMpDxHrX0DG gwM7CjwtC4ZFHwuFDzZCwpUJD0 Y73jl2W7EFElGFOcZLC6eUF5 uQ3seEhjnhhydZUblBtnwtExwK fiAFrhMTufU748GUOrsLwcLycm hCI9qGWryShcrIF+RW51nr74 N6BaXujuUqe2UOSaFJH4zMF8cH 8wQNNzGFqkk2F2rDP4E6NjftHb bp7ft9rfHHMrFGypO76ryTDa z4C1HZWiwFC0GNZozVaaBdPfbB 93Oyc+YZWusCvjo8EqCwaib4jw p3hufDu1KwZbOGBzeoMhmJzv NVP7l9MhRc49N91yXNmnBWYwIY BvHDYtSORqqTzizn1jxB0rUs7+ VMKlqXX9gNS2eU7aTfQxPpN4 FIitC714MyNaxDNpAenpb8vea4 qbpSf0ChTqASMgsjQyqTtyBAU4 z5RiCd38I4UjyFflt9JgCrj4 fu61iCMkc1H4mRK9O2DeUIOlpm fjhHRnaAooSX3wYWOcsknfQGAy fK5nJLNyT9c2QjBuNwA2IPvc G3EereF2SQYbnXMmGHNwaNHOgB 9omcwao1ufraakQiIpRULlWIj9 CVw1ULWvpXihQhJwQWN6QgK5 XMB7uQKqmD6raOzqhjpzxG3pMj c+ISj2z2ecfSFjHX0ftMZ2PX95 VN68bRSbe3R2aVW9P6MxOROe zfmwofjguEW0CIIoXZIesL92Ka 7dyHmhSk7wWRSwVND4AFAowWYl W8KenH0dIuVoFXQrCOKlO6Hg aLHiLUwcO955HPypJwC2TIRwfl NeJ2NmIUXglXboEtN3g0K8Mh7L ET31IM07UA01wQIjj8L1eRT6 T8WfXDRusftectokaDR6JCBvSV VzyB13Qx4uoTlrAd9iNGBkVTD8 MYLduCDxX4ZgrN1rIqTwRFNy BQDqS8BwzSHeWRreC837LXemDf A6WYEhgmHkX5IiRFQycRilVbL6 x5Z2Yf7TEs87AR20YZ55hDFg n2W1dFR7W5QaDKOpkwpcvsjwgX G7ZVMhKQSeiL66Sz5dyZxlRy8o HTGwMBW6XOUiyFSxL7GgsP2p HrJvQRGyAFRmG1JriVKrZAflF8 01CNhrLzC7FDSfvoFkK4CrIZZd aDodClF0h6L8Ls0FLJrljet1 K0MwPkgiwYA+AY00LMRkYT08aE HhoQMox5lakLv5WoCiXYRkJDL7 yFaxOGgte4YcSNKzE70cuAJj c2U (more content not included)... [facility] Outside Recordson 08-17-2021 Outside Records [id number][facility] 08-15-2021 Consent Forms [id number]#[facility] Pathology Sendout Teston Pathology Send Out. See Report [facility] Comment on above: Order Comment: PROCE DURE COLONOSCOPYSPECIMEN CECAL POLYP Performed By: #### 1 [id number], [id number], [id number], [id number] #### [facility] (DEFAULT) [address] [place] [address] Provider Orderson 08-15-2021 Provider Orders [id number]#[facility] Telemetry Stripson Telemetry Strips [id number]#1.00OTGTIFF Normal [facility] Transfer Noteon 08-15-2021 Transfer Note [id number]#1.00OTGTIFF Normal [facility] .Auto Diff 1on 08-14-2021 Auto Owen % 7 % Normal 1-12 [facility] Comment on above: Performed By: #### 1 [id number], [id number], 98507194, [id number] #### [facility] (DEFAULT) [address] [place] [address] Baso Abs# 0.0 x10 Normal 0.0-0.2 [facility] Comment on above: Performed By: #### 1 [id number], 6585905, 02003521, 9970766 #### [facility] (DEFAULT) [address] [place] [address] Basophils/100 WBC (Bld) 1.0 % Normal 0.2-2.0 [facility] Comment on above: Performed By: #### 1 [id number], 4817216, 29161822, 3872780 #### [facility] (DEFAULT) [address] [place] [address] Eos Abs# 0.1 x10 Normal 0.0-0.4 [facility] Comment on above: Performed By: #### 1 [id number], 0071154, 08265104, 2367012 #### [facility] (DEFAULT) [address] [place] [address] Eosinophils/100 WBC (Bld) 2.9 % Normal 0.9-4.0 [facility] Comment on above: Performed By: #### 1 [id number], 3843950, 11108971, 9535728 #### [facility] (DEFAULT) [address] [place] [address] Lymph Abs# 1.5 x10 Normal 1.3-2.9 [facility] Comment on above: Performed By: #### 1 [id number], 0523063, 61011745, 1261232 #### [facility] (DEFAULT) [address] [place] [address] 10606 Lymphocytes/100 WBC (Bld) 31 % Normal 14-48 [facility] Comment on above: Performed By: #### 1 [id number], 3925314, 00934155, 2340433 #### [facility] (DEFAULT) [address] [place] [address] 47626 Owen Abs# 0.4 x10 Normal 0.0-0.8 [facility] Comment on above: Performed By: #### 1 [id number], 7618595, 65264258, 6802545 #### [facility] (DEFAULT) [address] [place] [address] Neut Abs# 2.8 x10 Normal 1.5-9.2 [facility] Comment on above: Performed By: #### 1 [id number], 6759984, 74756052, 9734405 #### [facility] (DEFAULT) [address] [place] [address] 06966 Neutrophils/100 WBC (Bld) 58 % Normal 44-88 [facility] Comment on above: Performed By: #### 1 [id number], 1212426, 48688329, 7120381 #### [facility] (DEFAULT) [address] [place] [address] C. diff DNAon 08-14-2021 C. diff DNA Negative Normal Negative [facility] Comment on above: Performed By: #### 4 [id number] ####[facility] (DEFAULT)[address] [place] [address] Internal QC OK? Pass Normal [facility] Comment on above: Performed By: #### 4 [id number] ####[facility] (DEFAULT)[address] [place] [address] 6[address] CBC w/ Auto Diffon Erythrocyte distribution width (RBC) [Ratio] 17.9 % High 11.5-15.0 [facility] Comment on above: Performed By: #### 1 [id number], 6906300, 24884585, 6635712 #### [facility] (DEFAULT) [address] [place] [address] Hematocrit (Bld) [Volume fraction] 27.8 % Low 33.7-40.4 [facility] Comment on above: Performed By: #### 1 [id number], 4520193, 29843967, 4865740 #### [facility] (DEFAULT) [address] [place] [address] 11042 Hemoglobin (Bld) [Mass/Vol] 8.1 g/dL Low 11.3-15.9 [facility] Comment on above: Performed By: #### 1 [id number], 8601702, 80515099, 4828703 #### [facility] (DEFAULT) [address] [place] [address] 03237 Instr WBC 4.9 x10 Invalid Interpretation Code [facility] Comment on above: Performed By: #### 1 [id number], 7430036, 54429235, 3318034 #### [facility] (DEFAULT) [address] [place] [address] 16671 Man Diff? Auto Normal [facility] Comment on above: Performed By: #### 1 [id number], 5411621, 19896226, 7271976 #### [facility] (DEFAULT) [address] [place] [address] 83362 MCH (RBC) [Entitic mass] 27 pg Normal 24-34 [facility] Comment on above: Performed By: #### 1 [id number], 4853338, 61391971, 9334361 #### [facility] (DEFAULT) [address] [place] [address] 76892 MCHC (RBC) [Mass/Vol] 29 g/dL Normal 26-37 [facility] Comment on above: Performed By: #### 1 [id number], 9378623, 32550535, 9083986 #### [facility] (DEFAULT) [address] [place] [address] 73155 MCV (RBC) [Entitic vol] 94 fL Normal 81-100 [facility] Comment on above: Performed By: #### 1 [id number], 6667812, 39341141, 8230606 #### [facility] (DEFAULT) [address] [place] [address] 66548 Platelet 280 x10 Normal 138-427 [facility] Comment on above: Performed By: #### 1 [id number], 6866087, 76401406, 5451250 #### [facility] (DEFAULT) [address] [place] [address] Platelet mean volume (Bld) [Entitic vol] 9.3 fL Normal 6.3-10.2 [facility] Comment on above: Performed By: #### 1 [id number], 3872539, 54362608, 5099468 #### [facility] (DEFAULT) [address] [place] [address] RBC 2.96 x10 Low 3.70-5.30 [facility] Comment on above: Performed By: #### 1 [id number], 1180696, 23669536, 9913521 #### [facility] (DEFAULT) [address] [place] [address] WBC 4.9 x10 Normal 3.5-10.5 [facility] Comment on above: Performed By: #### 1 [id number], 6635709, 03583913, 4088676 #### [facility] (DEFAULT) [address] [place] [address] Standardon 08-14-2021 eGFR Non AA >60 Invalid Interpretation Code [facility] Comment on above: Performed By: #### 1 [id number], 7329781, 35730882, 3985084 #### [facility] (DEFAULT) [address] [place] [address] eGFR AA >60 Invalid Interpretation Code [facility] Comment on above: Result Comment: Triage Technician juanito Kidney disease could be indicated at eGFRs of less than 60 ml/min/1.73m2. Kidney Failure is indicated at less than 15 ml/min/1.73m2 Performed By: #### 1 [id number], 1725548, 61653680, 7968618 #### [facility] (DEFAULT) [address] [place] [address] Albumin [Mass/Vol] 3.0 g/dL Low 3.5-5.0 [facility] Comment on above: Performed By: #### 1 [id number], 0590405, 07931253, 4203277 #### [facility] (DEFAULT) [address] [place] [address] 92869 Albumin/Globulin [Mass ratio] 1.8 {ratio} Normal 1.4-2.6 [facility] Comment on above: Performed By: #### 1 [id number], 8205266, 24633912, 4395034 #### [facility] (DEFAULT) [address] [place] [address] 65341 Alk Phos 35 IU/L Normal 32-91 [facility] Comment on above: Performed By: #### 1 [id number], 0717569, 18731288, 6602032 #### [facility] (DEFAULT) [address] [place] [address] 77966 ALT [Catalytic activity/Vol] 16.0 U/L Normal 14.0-54.0 [facility] Comment on above: Performed By: #### 1 [id number], 4753418, 61756503, 1074747 #### [facility] (DEFAULT) [address] [place] [address] 21110 Anion gap [Moles/Vol] 12.0 mmol/L Normal 5.0-19.0 [facility] Comment on above: Performed By: #### 1 [id number], 3179836, 08572831, 2438504 #### [facility] (DEFAULT) [address] [place] [address] 13650 AST [Catalytic activity/Vol] 24 U/L Normal 15-41 [facility] Comment on above: Performed By: #### 1 [id number], 8354312, 77254201, 4475205 #### [facility] (DEFAULT) [address] [place] [address] 42609 Bili Total 0.5 mg/dL Normal 0.3-1.2 [facility] Comment on above: Performed By: #### 1 [id number], 1945379, 65973175, 1346168 #### [facility] (DEFAULT) [address] [place] [address] 52497 Calcium [Mass/Vol] 7.4 mg/dL Low 8.9-10.3 [facility] Comment on above: Performed By: #### 1 [id number], 2075613, 95183795, 6880277 #### [facility] (DEFAULT) [address] [place] [address] 88623 Chloride [Moles/Vol] 108 mmol/L Normal 101-111 [facility] Comment on above: Performed By: #### 1 [id number], 0245738, 80319707, 8896213 #### [facility] (DEFAULT) [address] [place] [address] 84985 CO2 [Moles/Vol] 26 mmol/L Normal 21-32 [facility] Comment on above: Performed By: #### 1 [id number], 2387684, 08624477, 0425060 #### [facility] (DEFAULT) [address] [place] [address] 40402 Creatinine [Mass/Vol] 0.68 mg/dL Normal 0.60-1.30 [facility] Comment on above: Performed By: #### 1 [id number], 6218889, 05650922, 2754887 #### [facility] (DEFAULT) [address] [place] [address] 20612 Globulin (S) [Mass/Vol] 1.7 g/dL Normal 1.5-4.3 [facility] Comment on above: Performed By: #### 1 [id number], 9041001, 37569840, 6094111 #### [facility] (DEFAULT) [address] [place] [address] 16291 Glucose [Mass/Vol] 80.0 mg/dL Normal 74.0-118.0 [facility] Comment on above: Performed By: #### 1 [id number], 8805178, 64098936, 5307137 #### [facility] (DEFAULT) [address] [place] [address] 38732 Osmolality 279 mOsm/L Invalid Interpretation Code [facility] Comment on above: Performed By: #### 1 [id number], 0176663, 08413387, 9694261 #### [facility] (DEFAULT) [address] [place] [address] 29360 Potassium [Moles/Vol] 5.5 mmol/L High 3.6-5.1 [facility] Comment on above: Performed By: #### 1 [id number], 5941255, 29466579, 4986671 #### [facility] (DEFAULT) [address] [place] [address] 95053 Protein [Mass/Vol] 4.7 g/dL Low 6.5-8.1 [facility] Comment on above: Performed By: #### 1 [id number], 3600996, 64944386, 5414509 #### [facility] (DEFAULT) [address] [place] [address] 76077 Sodium [Moles/Vol] 140.0 mmol/L Normal 136.0-144.0 [facility] Comment on above: Performed By: #### 1 [id number], 0363318, 30890446, 6433187 #### [facility] (DEFAULT) [address] [place] [address] 98394 Urea nitrogen [Mass/Vol] 14 mg/dL Normal 8-26 [facility] Comment on above: Performed By: #### 1 [id number], 3835366, 77187661, 4071459 #### [facility] (DEFAULT) [address] [place] [address] 79067 Urea nitrogen/Creatinin e [Mass ratio] 21.0 mg/mg High 4.6-16.2 [facility] Comment on above: Performed By: #### 1 [id number], 9435770, 60411252, 3141029 #### [facility] (DEFAULT) [address] [place] [address] 28067 Inpatient Patient Summaryon 08-14-2021 Inpatient Patient Summary [address] [address] Patient Discharge Instructions Name: ASHVIN RENE Berry : 1955 Patient Address: [address] [place] [address] Primary Care Provider: Name: TUSHAR SOLANO JR. After you are discharged if you find you have any questions, please, call [phone] ext [phone] to speak to a nurse. Discharge Diagnosis: [...] and/or drug addiction problems; contact the [facility] 03/02 Crisis Hotline -Text 4HMIR to 072844. If you received any narcotics, sedation, or [...] Instructions With: Address: When: TUSHAR SOLANO JR. [address] [place] [address] [facility] (1) 08/21/2021 2:45 PM Medications During the course of your visit, your medication list was updated with the most current information. The details of those changes are reflected below: New Medications [facility], [address] [place] [address] [id number], [phone] ferrous sulfate (ferrous sulfate 325 mg (65 mg elemental iron) oral tablet) 1 tab(s) Oral 2 times a day for 30 Days. Refills: 1. torsemide (torsemide 20 mg oral tablet) 1 tab(s) Oral every other day for [address] [facility]. Refills: 1. Medications That Were Updated - Follow Below Instructions Other Medications Updated: fludrocortisone (fludrocortisone 0.1 mg oral tablet) 0.5 tab(s) Oral every day. TAKE IN MORNING MEAL, HOLD IF STANDING BP OIAT173. Medications to Continue That Have Not Changed [...] mg oral tablet) potassium chloride (Potassium Chloride (Rgl-Vtwt-Uyx 10) 10 mEq oral tablet, extended release) [...] 250 mg oral (more content not included)... [facility] - AP Resultson Lab - AP Results [id number]#1.00OTGTIFF [facility] Pharmacy Noteon 08-14-2021 Pharmacy Note I have personally re viewed the patient's medication list upon discharge including, prescription medications, OTC products, vitamins and supplements. Below are the following medications the patient is discharged on. New Medications [facility], [address] [place] [address] [id number], [phone] ferrous sulfate (ferrous sulfate 325 mg (65 mg elemental iron) oral tablet) 1 tab(s) Oral 2 times a day for 30 Days. Refills: 1. torsemide (torsemide 20 mg oral tablet) 1 tab(s) Oral every other day for [address] [facility]. Refills: 1. Medications That Were Updated - Follow Below Instructions Other Medications Updated: fludrocortisone (fludrocortisone 0.1 mg oral tablet) 0.5 tab(s) Oral every day. TAKE IN MORNING MEAL, HOLD IF STANDING BP [id number]. Updated: midodrine (midodrine 10 mg oral tablet) [...] Oral every day. potassium chloride (Potassium Chloride (Dnc-Sjkg-Muh 10) 10 mEq oral tablet, extended release) 1 tab(s) Oral 3 times a day. vancomycin (Firvanq 25 mg/mL oral liquid) 5 Milliliter Oral 4 times a day. [Electronically Signed on: 08/14/2021 15:17 EST] Nadia Devi [Verified on: 08/14/2021 15:17 EST] Nadia Devi [facility] .Auto Diff 1on 08-13-2021 Auto Owen % 6 % Normal 07-25 [facility] Comment on above: Performed By: #### 1 [id number], 7631056, 91963032, 2340369 #### [facility] (DEFAULT) [address] [place] [address] 14528 Baso Abs# 0.0 x10 Normal 0.0-0.2 [facility] Comment on above: Performed By: #### 1 [id number], 7354538, 17770754, 6617951 #### [facility] (DEFAULT) [address] [place] [address] 11686 Basophils/100 WBC (Bld) 0.5 % Normal 0.2-2.0 [facility] Comment on above: Performed By: #### 1 [id number], 9633813, 02929891, 6997422 #### [facility] (DEFAULT) [address] [place] [address] 27751 Eos Abs# 0.1 x10 Normal 0.0-0.4 [facility] Comment on above: Performed By: #### 1 [id number], 7216416, 53116535, 9584975 #### [facility] (DEFAULT) [address] [place] [address] 07096 Eosinophils/100 WBC (Bld) 1.7 % Normal 0.9-4.0 [facility] Comment on above: Performed By: #### 1 [id number], [id number], [id number], [id number] #### [facility] (DEFAULT) [address] [place] [address] 03597 Lymph Abs# 1.4 x10 Normal 1.3-2.9 [facility] Comment on above: Performed By: #### 1 [id number], [id number], [id number], [id number] #### [facility] (DEFAULT) [address] [place] [address] 21205 Lymphocytes/100 WBC (Bld) 21 % Normal 14-48 [facility] Comment on above: Performed By: #### 1 [id number], [id number], [id number], [id number] #### [facility] (DEFAULT) [address] [place] [address] 16337 Owen Abs# 0.4 x10 Normal 0.0-0.8 [facility] Comment on above: Performed By: #### 1 [id number], [id number], [id number], [id number] #### [facility] (DEFAULT) [address] [place] [address] 13244 Neut Abs# 4.5 x10 Normal 1.5-9.2 [facility] Comment on above: Performed By: #### 1 [id number], [id number], [id number], [id number] #### [facility] (DEFAULT) [address] [place] [address] 78054 Neutrophils/100 WBC (Bld) 71 % Normal 44-88 [facility] Comment on above: Performed By: #### 1 [id number], [id number], [id number], [id number] #### [facility] (DEFAULT) [address] [place] [address] 73985 ABORhon 08-13-2021 ABO and Rh group Nom (Bld) Placed by Discern Expert due to BBPR being ordered. Hx Check: Found Anti-A: 0 Anti-B: 0 Anti-D: 4+ DCon: NT A1: 4+ B: 4+ ABORh Interp: O POS Invalid Interpretation Code [facility] Comment on above: Performed By: #### 1 [id number], [id number], [id number], [id number] #### [facility] (DEFAULT) [address] [place] [address] 18738 ABSC Gelon 08-13-2021 ABSC Gel Placed by Discern Ex pert due to BBPR being ordered. SC1 Gel: 0 SC2 Gel: 0 SC3 Gel: 0 ABSC Gel Interp: Negative Normal [facility] Comment on above: Performed By: #### 1 [id number], [id number], [id number], [id number] #### [facility] (DEFAULT) [address] [place] [address] 86436 BMP Standardon 08-13-2021 Anion gap [Moles/Vol] 13.0 mmol/L Normal 5.0-19.0 [facility] Comment on above: Performed By: #### 1 [id number], [id number], [id number], [id number] #### [facility] (DEFAULT) [address] [place] [address] 85336 Calcium [Mass/Vol] 6.8 mg/dL Low 8.9-10.3 [facility] Comment on above: Performed By: #### 1 [id number], [id number], [id number], [id number] #### [facility] (DEFAULT) [address] [place] [address] 47980 Chloride [Moles/Vol] 106 mmol/L Normal 101-111 [facility] Comment on above: Performed By: #### 1 [id number], [id number], 98612053, [id number] #### [facility] (DEFAULT) [address] [place] [address] 25862 CO2 [Moles/Vol] 24 mmol/L Normal 21-32 [facility] Comment on above: Performed By: #### 1 [id number], [id number], [id number], [id number] #### [facility] (DEFAULT) [address] [place] [address] 82878 Creatinine [Mass/Vol] 0.65 mg/dL Normal 0.60-1.30 [facility] Comment on above: Performed By: #### 1 [id number], [id number], 99318106, 9006844 #### [facility] (DEFAULT) [address] [place] [address] 43333 Glucose [Mass/Vol] 108.0 mg/dL Normal 74.0-118.0 [facility] Comment on above: Performed By: #### 1 [id number], [id number], [id number], [id number] #### [facility] (DEFAULT) [address] [place] [address] 66460 Osmolality 275 mOsm/L Invalid Interpretation Code [facility] Comment on above: Performed By: #### 1 [id number], 6791950, 08330664, 3360384 #### [facility] (DEFAULT) [address] [place] [address] 77647 Potassium [Moles/Vol] 5.0 mmol/L Normal 3.6-5.1 [facility] Comment on above: Result Comment: Pota ssium medication/therapy Performed By: #### 1 [id number], 5123111, 43442374, 1643579 #### [facility] (DEFAULT) [address] [place] [address] Sodium [Moles/Vol] 138.0 mmol/L Normal 136.0-144.0 [facility] Comment on above: Performed By: #### 1 [id number], 2100232, 15988589, 5136019 #### [facility] (DEFAULT) [address] [place] [address] Urea nitrogen [Mass/Vol] 10 mg/dL Normal 8-26 [facility] Comment on above: Performed By: #### 1 [id number], 5008633, 12584894, 8242442 #### [facility] (DEFAULT) [address] [place] [address] Urea nitrogen/Creatinin e [Mass ratio] 15.0 mg/mg Normal 4.6-16.2 [facility] Comment on above: Performed By: #### 1 [id number], 7282547, 25571826, 9174435 #### [facility] (DEFAULT) [address] [place] [address] eGFR Non AA >60 Invalid Interpretation Code [facility] Comment on above: Performed By: #### 1 [id number], 9726032, 62388913, 5365657 #### [facility] (DEFAULT) [address] [place] [address] eGFR AA >60 Invalid Interpretation Code [facility] Comment on above: Result Comment: Triage Technician juanito Kidney disease could be indicated at eGFRs of less than 60 ml/min/1.73m2. Kidney Failure is indicated at less than 15 ml/min/1.73m2 Performed By: #### 1 [id number], 4231476, 26411807, 3405879 #### [facility] (DEFAULT) [address] [place] [address] CBC w/ Auto Diffon 2 Erythrocyte distribution width (RBC) [Ratio] 17.8 % High 11.5-15.0 [facility] Comment on above: Performed By: #### 1 [id number], 9292173, 15806358, 0784982 #### [facility] (DEFAULT) [address] [place] [address] Hematocrit (Bld) [Volume fraction] 26.7 % Low 33.7-40.4 [facility] Comment on above: Performed By: #### 1 [id number], 8024195, 62930566, 6997624 #### [facility] (DEFAULT) [address] [place] [address] Hemoglobin (Bld) [Mass/Vol] 7.8 g/dL Low 11.3-15.9 [facility] Comment on above: Performed By: #### 1 [id number], 7115988, 81168023, 0284797 #### [facility] (DEFAULT) [address] [place] [address] Instr WBC 6.4 x10 Invalid Interpretation Code [facility] Comment on above: Performed By: #### 1 [id number], 3513593, 92729464, 4319928 #### [facility] (DEFAULT) [address] [place] [address] Man Diff? Auto Normal [facility] Comment on above: Performed By: #### 1 148143963, 3927454, 46486790, 4954063 #### [facility] (DEFAULT) [address] [place] [address] 56261 MCH (RBC) [Entitic mass] 27 pg Normal 24-34 [facility] Comment on above: Performed By: #### 1 [id number], 1467812, 80745423, 6234525 #### [facility] (DEFAULT) [address] [place] [address] 01683 MCHC (RBC) [Mass/Vol] 29 g/dL Normal 26-37 [facility] Comment on above: Performed By: #### 1 [id number], 4975300, 87870840, 2989653 #### [facility] (DEFAULT) [address] [place] [address] 16405 MCV (RBC) [Entitic vol] 94 fL Normal 81-100 [facility] Comment on above: Performed By: #### 1 [id number], 7857767, 10664797, 5640840 #### [facility] (DEFAULT) [address] [place] [address] Platelet 309 x10 Normal 138-427 [facility] Comment on above: Performed By: #### 1 [id number], 9170838, 42270800, 5328312 #### [facility] (DEFAULT) [address] [place] [address] Platelet mean volume (Bld) [Entitic vol] 9.2 fL Normal 6.3-10.2 [facility] Comment on above: Performed By: #### 1 [id number], 3663569, 17966781, 4619106 #### [facility] (DEFAULT) [address] [place] [address] RBC 2.85 x10 Low 3.70-5.30 [facility] Comment on above: Performed By: #### 1 113211781, 4088382, 03168181, 0259861 #### [facility] (DEFAULT) [address] [place] [address] WBC 6.4 x10 Normal 3.5-10.5 [facility] Comment on above: Performed By: #### 1 [id number], 3572008, 50496400, 1579326 #### [facility] (DEFAULT) [address] [place] [address] H&Hon 08-13-2021 Hematocrit (Bld) [Volume fraction] 29.9 % Low 33.7-40.4 [facility] Comment on above: Performed By: #### 1 [id number], 1991173, 29690689, 6802984 #### [facility] (DEFAULT) [address] [place] [address] Hemoglobin (Bld) [Mass/Vol] 8.7 g/dL Low 11.3-15.9 [facility] Comment on above: Performed By: #### 1 [id number], 5653120, 87549261, 0860738 #### [facility] (DEFAULT) [address] [place] [address] Magnesiumon 08-13-2021 Magnesium [Mass/Vol] 2.07 mg/dL Normal 1.80-2.50 [facility] Comment on above: Performed By: #### 1 178018408, 2372878, 17428904, 6265936 #### [facility] (DEFAULT) [address] [place] [address] 15176 Nutrition Noteon 08-13-2021 Nutrition Note 08/12 wt 60.1kg, questionable 12kg loss from admit wt at 72kg. Pt did received lasix, IV alb with improvement noted in LE edema, however, still question loss of 26lb in less than 1wk. Alb back at 3.3, stable. H/H also on recheck, stable. Intake avg 25-50%. Per rounds, if hgb remains stable, Pt to be discharged back to [facility]. If discharge plans change, will re-add supplements. Will request re-weight in am. [facility] RBC.on 08-13-2021 RBC. # of Units: 1 RBC Indication: Symptom Anemia Additional Units?: No Date Needed: 08/13/2021 Red Cell Status: RBC Ready [facility] Comment on above: Performed By: #### 1 [id number], 1902297, 76905053, 3034183 #### [facility] (DEFAULT) [address] [place] [address] 72790 Telemetry Stripson 2 Telemetry Strips [id number] [facility] .Auto Diff 1on 08-12-2021 Auto Owen % 8 % Normal -12 [facility] Comment on above: Performed By: #### 7 879570, 33366989, 8227441, 1355262523 #### [facility] (DEFAULT) [address] [place] [address] 87003 Baso Abs# 0.0 x10 Normal 0.0-0.2 [facility] Comment on above: Performed By: #### 7 974969, 31246373, 5767431, 3946013147 #### [facility] (DEFAULT) [address] [place] [address] 59020 Basophils/100 WBC (Bld) 0.7 % Normal 0.2-2.0 [facility] Comment on above: Performed By: #### 7 071480, 42994001, 6370581, 3475494163 #### [facility] (DEFAULT) [address] [place] [address] 30561 Eos Abs# 0.1 x10 Normal 0.0-0.4 [facility] Comment on above: Performed By: #### 7 245505, 87348929, 6122689, 6186814578 #### [facility] (DEFAULT) [address] [place] [address] 12695 Eosinophils/100 WBC (Bld) 1.8 % Normal 0.9-4.0 [facility] Comment on above: Performed By: #### 7 121793, 61834770, 1719207, 8216014719 #### [facility] (DEFAULT) [address] [place] [address] 26843 Lymph Abs# 1.6 x10 Normal 1.3-2.9 [facility] Comment on above: Performed By: #### 7 968090, 13902574, 9309915, 7762525843 #### [facility] (DEFAULT) [address] [place] [address] 82150 Lymphocytes/100 WBC (Bld) 30 % Normal 14-48 [facility] Comment on above: Performed By: #### 7 989432, 53338355, 3258860, 6908773207 #### [facility] (DEFAULT) [address] [place] [address] 47682 Owen Abs# 0.4 x10 Normal 0.0-0.8 [facility] Comment on above: Performed By: #### 7 393033, 22795224, 2532825, 9319721333 #### [facility] (DEFAULT) [address] [place] [address] 38905 Neut Abs# 3.2 x10 Normal 1.5-9.2 [facility] Comment on above: Performed By: #### 7 901022, 83736328, 0530217, 5394061092 #### [facility] (DEFAULT) [address] [place] [address] 67503 Neutrophils/100 WBC (Bld) 60 % Normal 44-88 [facility] Comment on above: Performed By: #### 7 025135, 97100425, 2293677, 2511601490 #### [facility] (DEFAULT) [address] [place] [address] 30348 CBC w/ Auto Diffon 2 Erythrocyte distribution width (RBC) [Ratio] 17.9 % High 11.5-15.0 [facility] Comment on above: Performed By: #### 7 216278, 07399054, 1324506, 0904028471 #### [facility] (DEFAULT) [address] [place] [address] Hematocrit (Bld) [Volume fraction] 28.6 % Low 33.7-40.4 [facility] Comment on above: Performed By: #### 7 818314, 33662743, 7129297, 1128445231 #### [facility] (DEFAULT) [address] [place] [address] Hemoglobin (Bld) [Mass/Vol] 8.5 g/dL Low 11.3-15.9 [facility] Comment on above: Performed By: #### 7 124887, 21904823, 3739442, 4414572479 #### [facility] (DEFAULT) [address] [place] [address] Instr WBC 5.4 x10 Invalid Interpretation Code [facility] Comment on above: Performed By: #### 7 786457, 54848584, 0726979, 1734472493 #### [facility] (DEFAULT) [address] [place] [address] 75292 Man Diff? Auto Normal [facility] Comment on above: Performed By: #### 7 191530, 42300222, 6049292, [id number] #### [facility] (DEFAULT) [address] [place] [address] 25964 MCH (RBC) [Entitic mass] 28 pg Normal 24-34 [facility] Comment on above: Performed By: #### 7 650309, 16096440, 5715230, 9463420067 #### [facility] (DEFAULT) [address] [place] [address] 03497 MCHC (RBC) [Mass/Vol] 30 g/dL Normal 26-37 [facility] Comment on above: Performed By: #### 7 212040, 52727969, 8797181, 7730936291 #### [facility] (DEFAULT) [address] [place] [address] 67573 MCV (RBC) [Entitic vol] 94 fL Normal 81-100 [facility] Comment on above: Performed By: #### 7 890458, 32173653, 8376951, 2850015262 #### [facility] (DEFAULT) [address] [place] [address] 33432 Platelet 305 x10 Normal 138-427 [facility] Comment on above: Performed By: #### 7 811499, 24022026, 7300791, 4194666288 #### [facility] (DEFAULT) [address] [place] [address] 29658 Platelet mean volume (Bld) [Entitic vol] 9.8 fL Normal 6.3-10.2 [facility] Comment on above: Performed By: #### 7 402302, 87355771, 7399734, 6251149936 #### [facility] (DEFAULT) [address] [place] [address] 36257 RBC 3.03 x10 Low 3.70-5.30 [facility] Comment on above: Performed By: #### 7 922891, 41968179, 0225373, 4745661570 #### [facility] (DEFAULT) [address] [place] [address] 61118 WBC 5.4 x10 Normal 3.5-10.5 [facility] Comment on above: Performed By: #### 7 415791, 34281109, 4071179, 9044182565 #### [facility] (DEFAULT) [address] [place] [address] 63746 CMP Standardon 08-12-2021 Albumin [Mass/Vol] 3.3 g/dL Low 3.5-5.0 [facility] Comment on above: Performed By: #### 7 213396, 45599582, 2871075, 7055790292 ####[facility] (DEFAULT)[address] [place] [address] 91646 Albumin/Globulin [Mass ratio] 2.4 {ratio} Normal 1.4-2.6 [facility] Comment on above: Performed By: #### 7 244899, 47368166, 7560693, 0323800939 ####[facility] (DEFAULT)[address] [place] [address] 08470 Alk Phos 28 IU/L Low 32-91 [facility] Comment on above: Performed By: #### 7 029680, 43392814, 7846026, 0429817755 ####[facility] (DEFAULT)[address] [place] [address] 63117 ALT [Catalytic activity/Vol] 14.0 U/L Normal 14.0-54.0 [facility] Comment on above: Performed By: #### 7 810758, 17909497, 1172148, 1579363354 ####[facility] (DEFAULT)[address] [place] [address] 66971 Anion gap [Moles/Vol] 15.0 mmol/L Normal 5.0-19.0 [facility] Comment on above: Performed By: #### 7 929380, 15694650, 7310906, 9791624709 ####[facility] (DEFAULT)[address] [place] [address] 49910 AST [Catalytic activity/Vol] 27 U/L Normal 15-41 [facility] Comment on above: Performed By: #### 7 318212, 16651786, 7038162, 4239604026 ####[facility] (DEFAULT)[address] [place] [address] 65791 Bili Total 0.5 mg/dL Normal 0.3-1.2 [facility] Comment on above: Performed By: #### 7 012102, 37014634, 1477340, 0246342095 ####[facility] (DEFAULT)[address] [place] [address] 46802 Calcium [Mass/Vol] 6.7 mg/dL Low 8.9-10.3 [facility] Comment on above: Performed By: #### 7 984194, 78151147, 4051720, 0417962683 ####[facility] (DEFAULT)[address] [place] [address] 32917 Chloride [Moles/Vol] 103 mmol/L Normal 101-111 [facility] Comment on above: Performed By: #### 7 985172, 65833354, 2633161, 5868138338 ####[facility] (DEFAULT)[address] [place] [address] CO2 [Moles/Vol] 27 mmol/L Normal 21-32 [facility] Comment on above: Performed By: #### 7 449805, 46935312, 9022651, 4241694144 ####[facility] (DEFAULT)[address] [place] [address] Creatinine [Mass/Vol] 0.68 mg/dL Normal 0.60-1.30 [facility] Comment on above: Performed By: #### 7 271124, 13473398, 9403677, 9264375482 ####[facility] (DEFAULT)[address] [place] [address] Globulin (S) [Mass/Vol] 1.4 g/dL Low 1.5-4.3 [facility] Comment on above: Performed By: #### 7 250430, 95312223, 9159924, 9200330662 ####[facility] (DEFAULT)[address] [place] [address] Glucose [Mass/Vol] 76.0 mg/dL Normal 74.0-118.0 [facility] Comment on above: Performed By: #### 7 800777, 99164919, 7433249, 7028749042 ####[facility] (DEFAULT)[address] [place] [address] 23319 Osmolality 278 mOsm/L Invalid Interpretation Code [facility] Comment on above: Performed By: #### 7 777015, 57895624, 2522961, 9105133056 ####[facility] (DEFAULT)[address] [place] [address] Potassium [Moles/Vol] 4.3 mmol/L Normal 3.6-5.1 [facility] Comment on above: Result Comment: IV T herapy Performed By: #### 7 490000, 84891476, 9123066, 7574751895 ####[facility] (DEFAULT)[address] [place] [address] Protein [Mass/Vol] 4.7 g/dL Low 6.5-8.1 [facility] Comment on above: Performed By: #### 7 100831, 28382865, 8151677, 0752147988 ####[facility] (DEFAULT)[address] [place] [address] Sodium [Moles/Vol] 141.0 mmol/L Normal 136.0-144.0 [facility] Comment on above: Performed By: #### 7 726376, 10149274, 1204988, 5552813446 ####[facility] (DEFAULT)[address] [place] [address] Urea nitrogen [Mass/Vol] 8 mg/dL Normal 8-26 [facility] Comment on above: Performed By: #### 7 208834, 68372732, 6355156, 7800600829 ####[facility] (DEFAULT)[address] [place] [address] Urea nitrogen/Creatinin e [Mass ratio] 12.0 mg/mg Normal 4.6-16.2 [facility] Comment on above: Performed By: #### 7 213699, 77602426, 0157672, 9637549329 ####[facility] (DEFAULT)[address] [place] [address] eGFR Non AA >60 Invalid Interpretation Code [facility] Comment on above: Performed By: #### 7 853822, 83398296, 3073688, 7311182330 ####[facility] (DEFAULT)[address] [place] [address] eGFR AA >60 Invalid Interpretation Code [facility] Comment on above: Result Comment: Triage Technician juanito Kidney disease could be indicated at eGFRs of less than 60 ml/min/1.73m2. Kidney Failure is indicated at less than 15 ml/min/1.73m2 Performed By: #### 7 452960, 66521658, 8017991, 1734498312 ####[facility] (DEFAULT)[address] [place] [address] Magnesiumon 08-12-2021 Magnesium [Mass/Vol] 1.21 mg/dL Low 1.80-2.50 [facility] Comment on above: Performed By: #### 7 268082, 88488968, 7401777, 5179358046 #### [facility] (DEFAULT) [address] [place] [address] .Auto Diff 1on 08-11-2021 Auto Owen % 8 % Normal 1-12 [facility] Comment on above: Performed By: #### 2 809196, 8382336043, 7576812, 84905350 ####[facility] (DEFAULT)[address] [place] [address] Baso Abs# 0.0 x10 Normal 0.0-0.2 [facility] Comment on above: Performed By: #### 2 197262, 5811613749, 4228182, 73353022 ####[facility] (DEFAULT)[address] [place] [address] Basophils/100 WBC (Bld) 0.6 % Normal 0.2-2.0 [facility] Comment on above: Performed By: #### 2 489316, 5522172952, 9349871, 13946990 ####[facility] (DEFAULT)[address] [place] [address] Eos Abs# 0.2 x10 Normal 0.0-0.4 [facility] Comment on above: Performed By: #### 2 025759, 8434907361, 4649570, 39484381 ####[facility] (DEFAULT)[address] [place] [address] Eosinophils/100 WBC (Bld) 3.1 % Normal 0.9-4.0 [facility] Comment on above: Performed By: #### 2 685723, 5117294043, 6071337, 99017087 ####[facility] (DEFAULT)[address] [place] [address] Lymph Abs# 1.4 x10 Normal 1.3-2.9 [facility] Comment on above: Performed By: #### 2 873673, 8297019167, 6133895, 20792549 ####[facility] (DEFAULT)[address] [place] [address] Lymphocytes/100 WBC (Bld) 28 % Normal 14-48 [facility] Comment on above: Performed By: #### 2 993547, 8620963712, 4368741, 65040172 ####[facility] (DEFAULT)[address] [place] [address] Owen Abs# 0.4 x10 Normal 0.0-0.8 [facility] Comment on above: Performed By: #### 2 301347, 7837310021, 3842717, 85845703 ####[facility] (DEFAULT)[address] [place] [address] Neut Abs# 3.2 x10 Normal 1.5-9.2 [facility] Comment on above: Performed By: #### 2 318201, 7722796090, 1223768, 18382839 ####[facility] (DEFAULT)[address] [place] [address] Neutrophils/100 WBC (Bld) 61 % Normal 44-88 [facility] Comment on above: Performed By: #### 2 996786, 7557557036, 1739088, 71456911 ####[facility] (DEFAULT)[address] [place] [address] Standardon 08-11-2021 eGFR Non AA >60 Invalid Interpretation Code [facility] Comment on above: Performed By: #### 2 219015, 9571667759, 5109844, 67973911 ####[facility] (DEFAULT)[address] [place] [address] eGFR AA >60 Invalid Interpretation Code [facility] Comment on above: Result Comment: Triage Technician juanito Kidney disease could be indicated at eGFRs of less than 60 ml/min/1.73m2. Kidney Failure is indicated at less than 15 ml/min/1.73m2 Performed By: #### 2 516755, 9531335167, 1123921, 76186994 ####[facility] (DEFAULT)[address] [place] [address] Anion gap [Moles/Vol] 17.0 mmol/L Normal 5.0-19.0 [facility] Comment on above: Performed By: #### 2 581289, 9467776165, 9932283, 45626646 ####[facility] (DEFAULT)[address] [place] [address] 71259 Calcium [Mass/Vol] 6.7 mg/dL Low 8.9-10.3 [facility] Comment on above: Performed By: #### 2 723059, 8675943924, 7100195, 54785761 ####[facility] (DEFAULT)[address] [place] [address] 72118 Chloride [Moles/Vol] 104 mmol/L Normal 101-111 [facility] Comment on above: Performed By: #### 2 654466, 1064607085, 0441116, 49982542 ####[facility] (DEFAULT)[address] [place] [address] 93848 CO2 [Moles/Vol] 24 mmol/L Normal 21-32 [facility] Comment on above: Performed By: #### 2 636717, 7087604054, 9195537, 35501118 ####[facility] (DEFAULT)[address] [place] [address] 49313 Creatinine [Mass/Vol] 0.57 mg/dL Low 0.60-1.30 [facility] Comment on above: Performed By: #### 2 165781, 4902654536, 3794613, 81527974 ####[facility] (DEFAULT)[address] [place] [address] 70121 Glucose [Mass/Vol] 81.0 mg/dL Normal 74.0-118.0 [facility] Comment on above: Performed By: #### 2 810818, 9696498263, 5265285, 23316244 ####[facility] (DEFAULT)[address] [place] [address] 71617 Osmolality 278 mOsm/L Invalid Interpretation Code [facility] Comment on above: Performed By: #### 2 951785, 2538094477, 2505220, 74776112 ####[facility] (DEFAULT)[address] [place] [address] 55239 Potassium [Moles/Vol] 3.6 mmol/L Normal 3.6-5.1 [facility] Comment on above: Performed By: #### 2 485173, 0139034567, 4809110, 79983320 ####[facility] (DEFAULT)[address] [place] [address] 68651 Sodium [Moles/Vol] 141.0 mmol/L Normal 136.0-144.0 [facility] Comment on above: Performed By: #### 2 381334, 3830398844, 1244998, 23689614 ####[facility] (DEFAULT)[address] [place] [address] Urea nitrogen [Mass/Vol] 6 mg/dL Low 8-26 [facility] Comment on above: Performed By: #### 2 581782, 3398781396, 5931787, 48440796 ####[facility] (DEFAULT)[address] [place] [address] Urea nitrogen/Creatinin e [Mass ratio] 11.0 mg/mg Normal 4.6-16.2 [facility] Comment on above: Performed By: #### 2 534720, 6889777628, 5524914, 93247434 ####[facility] (DEFAULT)[address] [place] [address] CBC w/ Auto Diffon Erythrocyte distribution width (RBC) [Ratio] 17.9 % High 11.5-15.0 [facility] Comment on above: Performed By: #### 2 288584, [id number], 6199574, 54723084 ####[facility] (DEFAULT)[address] [place] [address] 45289 Hematocrit (Bld) [Volume fraction] 26.2 % Low 33.7-40.4 [facility] Comment on above: Performed By: #### 2 935096, 8355852449, 6890377, 12038210 ####[facility] (DEFAULT)[address] [place] [address] Hemoglobin (Bld) [Mass/Vol] 7.8 g/dL Low 11.3-15.9 [facility] Comment on above: Performed By: #### 2 570498, 9557038014, 0495976, 07869274 ####[facility] (DEFAULT)[address] [place] [address] Instr WBC 5.2 x10 Invalid Interpretation Code [facility] Comment on above: Performed By: #### 2 569752, [id number], 4179820, 02676779 ####[facility] (DEFAULT)[address] [place] [address] Man Diff? Auto Normal [facility] Comment on above: Performed By: #### 2 747065, 5295468963, 7812887, 36675516 ####[facility] (DEFAULT)[address] [place] [address] MCH (RBC) [Entitic mass] 28 pg Normal 24-34 [facility] Comment on above: Performed By: #### 2 598830, 1447620192, 1449245, 36556466 ####[facility] (DEFAULT)[address] [place] [address] MCHC (RBC) [Mass/Vol] 30 g/dL Normal 26-37 [facility] Comment on above: Performed By: #### 2 969014, 1571221948, 9129075, 51614029 ####[facility] (DEFAULT)[address] [place] [address] 35479 MCV (RBC) [Entitic vol] 93 fL Normal 81-100 [facility] Comment on above: Performed By: #### 2 702946, 7409644770, 2923948, 82364579 ####[facility] (DEFAULT)[address] [place] [address] 90097 Platelet 291 x10 Normal 138-427 [facility] Comment on above: Performed By: #### 2 641337, [id number], 8485123, 02018202 ####[facility] (DEFAULT)[address] [place] [address] 93646 Platelet mean volume (Bld) [Entitic vol] 9.6 fL Normal 6.3-10.2 [facility] Comment on above: Performed By: #### 2 197227, 9904685275, 5463503, 90080002 ####[facility] (DEFAULT)[address] [place] [address] 90623 RBC 2.82 x10 Low 3.70-5.30 [facility] Comment on above: Performed By: #### 2 003951, 0487537519, 2308988, 46742781 ####[facility] (DEFAULT)[address] [place] [address] 64856 WBC 5.2 x10 Normal 3.5-10.5 [facility] Comment on above: Performed By: #### 2 476933, 6738650864, 5767337, 30154513 ####[facility] (DEFAULT)[address] [place] [address] 09887 Magnesiumon 08-11-2021 Magnesium [Mass/Vol] 1.43 mg/dL Low 1.80-2.50 [facility] Comment on above: Performed By: #### 2 954286, 0725049254, 3561253, 61585183 ####[facility] (DEFAULT)[address] [place] [address] 59845 PTH, Intact LCon 08-11-2021 PTH, Intact LC 125 pg/mL High 15-65 [facility] Comment on above: Result Comment: Perf ormed At: [facility] [address] [id number] Brenna Iyer PhD Ph:[phone] Performed By: #### 2 [id number], 91327162 ####[facility] (DEFAULT)[address] [place] [address] .Auto Diff 1on 08-10-2021 Auto Owen % 8 % Normal 1-12 [facility] Comment on above: Performed By: #### 1 [id number], 9526077776, 3827085, 02068347, 2450234, 0399469364 ####[facility] (DEFAULT)[address] [place] [address] 46806 Baso Abs# 0.0 x10 Normal 0.0-0.2 [facility] Comment on above: Performed By: #### 1 035209125, 7345220004, 3189164, 57646141, 0691688, 9618389073 ####[facility] (DEFAULT)[address] [place] [address] 11470 Basophils/100 WBC (Bld) 0.8 % Normal 0.2-2.0 [facility] Comment on above: Performed By: #### 1 101680628, 8726590850, 7531599, 97906381, 2499583, 3615743989 ####[facility] (DEFAULT)[address] [place] [address] 28154 Eos Abs# 0.2 x10 Normal 0.0-0.4 [facility] Comment on above: Performed By: #### 1 405143787, 1424959601, 6431226, 31071230, 4772603, 0626271731 ####[facility] (DEFAULT)[address] [place] [address] 77412 Eosinophils/100 WBC (Bld) 3.3 % Normal 0.9-4.0 [facility] Comment on above: Performed By: #### 1 167018999, 2442680933, 1791855, 04405762, 9186129, 4556699008 ####[facility] (DEFAULT)[address] [place] [address] 58452 Lymph Abs# 1.2 x10 Low 1.3-2.9 [facility] Comment on above: Performed By: #### 1 352650910, 8182887294, 9059073, 66568772, 7352572, 1843848860 ####[facility] (DEFAULT)[address] [place] [address] 71302 Lymphocytes/100 WBC (Bld) 24 % Normal 14-48 [facility] Comment on above: Performed By: #### 1 177885717, 8718703617, 8308334, 84838036, 5919974, 6512073830 ####[facility] (DEFAULT)[address] [place] [address] 41860 Owen Abs# 0.4 x10 Normal 0.0-0.8 [facility] Comment on above: Performed By: #### 1 295847584, 5594994492, 0479696, 44463824, 8192336, 4017544702 ####[facility] (DEFAULT)[address] [place] [address] Neut Abs# 3.1 x10 Normal 1.5-9.2 [facility] Comment on above: Performed By: #### 1 420091458, 3085441966, 3316081, 75182586, 2425728, 4559153088 ####[facility] (DEFAULT)[address] [place] [address] Neutrophils/100 WBC (Bld) 64 % Normal 44-88 [facility] Comment on above: Performed By: #### 1 369892744, 8446844161, 9845373, 43114311, 9958836, 2164638323 ####[facility] (DEFAULT)[address] [place] [address] 29253 Anesthesia Noteon 08-10-2021 Anesthesia Note Patient: SUSAN [...] on: 08/10/2021 10:12 EST] Rony Ordonez MD [facility] Anesthesia Note Patient: SUSAN RENE Age: [...] on: 08/10/2021 10:00 EST] Rony Ordonez MD [facility] Anesthesia Note Patient: SUSAN RENE Age: 65 years Sex: FEMALE : 1955 Associated Diagnoses: None Author: Rony Ordonez MD Preoperative Information Anesthesia history: Patient history: No difficult intubation, No malignant hyperthermia. Family history: No malignant hyperthermia. Review of Systems Respiratory: recent COVID positive but no symptoms at present pulmonary payne, No shortness of breath, No apnea. 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 Hysterectomy (362719625). Social History Electronic Cigarette/Vaping Assessment Electronic Cigarette [...] % Auto Lymph % 24 % Auto Owen % 8 % Auto Eos % 3.3 % Auto Baso % 0.8 % Neut Abs# 3.1 x103/mcL Lymph Abs# 1.2 x103/mcL LOW Owen Abs# 0.4 x103/mcL Eos Abs# 0.2 x103/mcL [...] Comment on above: Performed By: #### 1 815378182, 0462566206, 3660341, 61736190, 0648811, 8558717071 ####[facility] (DEFAULT)[address] [place] [address] 38582 Hematocrit (Bld) [Volume fraction] 25.6 % Low 33.7-40.4 [facility] Comment on above: Performed By: #### 1 701018207, 1025144418, 1446867, 17487667, 9739623, 1965326242 ####[facility] (DEFAULT)[address] [place] [address] 80973 Hemoglobin (Bld) [Mass/Vol] 7.6 g/dL Low 11.3-15.9 [facility] Comment on above: Performed By: #### 1 738340328, 9208363795, 3244494, 23804652, 3959737, 5320570388 ####[facility] (DEFAULT)[address] [place] [address] 17165 Instr WBC 4.9 x10 Invalid Interpretation Code [facility] Comment on above: Performed By: #### 1 696568738, 7015929215, 2667522, 65395131, 7425474, 6048598007 ####[facility] (DEFAULT)[address] [place] [address] 18128 Man Diff? Auto Normal [facility] Comment on above: Performed By: #### 1 608719597, 0276195957, 1493789, 40983147, 8013958, 4577463483 ####[facility] (DEFAULT)[address] [place] [address] 89252 MCH (RBC) [Entitic mass] 28 pg Normal 24-34 [facility] Comment on above: Performed By: #### 1 237299488, 8957318372, 2271443, 92804007, 8565549, 1164503435 ####[facility] (DEFAULT)[address] [place] [address] MCHC (RBC) [Mass/Vol] 30 g/dL Normal 26-37 [facility] Comment on above: Performed By: #### 1 721363050, 7220144646, 7604701, 42248229, 2852063, 2708873066 ####[facility] (DEFAULT)[address] [place] [address] 42566 MCV (RBC) [Entitic vol] 93 fL Normal 81-100 [facility] Comment on above: Performed By: #### 1 832063870, 1255415047, 2198790, 02277982, 7991150, 1704289039 ####[facility] (DEFAULT)[address] [place] [address] 45882 Platelet 345 x10 Normal 138-427 [facility] Comment on above: Performed By: #### 1 745904859, 4779786369, 1947618, 56515048, 1762744, 3912290955 ####[facility] (DEFAULT)[address] [place] [address] 44085 Platelet mean volume (Bld) [Entitic vol] 9.3 fL Normal 6.3-10.2 [facility] Comment on above: Performed By: #### 1 831219623, 1810033885, 6157473, 56603309, 3825592, 4670769283 ####[facility] (DEFAULT)[address] [place] [address] 25898 RBC 2.74 x10 Low 3.70-5.30 [facility] Comment on above: Performed By: #### 1 695503437, 0328881594, 3230846, 32061979, 8652110, 5767090675 ####[facility] (DEFAULT)[address] [place] [address] WBC 4.9 x10 Normal 3.5-10.5 [facility] Comment on above: Performed By: #### 1 536751193, 7765381726, 0513112, 38356903, 8009601, 5928827049 ####[facility] (DEFAULT)[address] [place] [address] Standardon 08-10-2021 eGFR Non AA >60 Invalid Interpretation Code [facility] Comment on above: Performed By: #### 1 363384809, 9525782147, 6662792, 96507834, 1597613, 9933905951 ####[facility] (DEFAULT)[address] [place] [address] eGFR AA >60 Invalid Interpretation Code [facility] Comment on above: Result Comment: Triage Technician juanito Kidney disease could be indicated at eGFRs of less than 60 ml/min/1.73m2. Kidney Failure is indicated at less than 15 ml/min/1.73m2 Performed By: #### 1 319630675, 8213578692, 6073463, 18409178, 6575533, 6213931839 ####[facility] (DEFAULT)[address] [place] [address] 46937 Albumin [Mass/Vol] 3.3 g/dL Low 3.5-5.0 [facility] Comment on above: Performed By: #### 1 356271665, 0448609048, 1205621, 18318680, 0151377, 6956484233 ####[facility] (DEFAULT)[address] [place] [address] Albumin/Globulin [Mass ratio] 2.4 {ratio} Normal 1.4-2.6 [facility] Comment on above: Performed By: #### 1 659036349, 2239536992, 5383595, 01710720, 0512502, 2445637446 ####[facility] (DEFAULT)[address] [place] [address] Alk Phos 27 IU/L Low 32-91 [facility] Comment on above: Performed By: #### 1 749799373, 3685283274, 7724356, 94197362, 9611370, 9898117508 ####[facility] (DEFAULT)[address] [place] [address] ALT [Catalytic activity/Vol] 14.0 U/L Normal 14.0-54.0 [facility] Comment on above: Performed By: #### 1 909088049, 9828125756, 1799549, 87913101, 4409511, 7471321082 ####[facility] (DEFAULT)[address] [place] [address] Anion gap [Moles/Vol] 16.0 mmol/L Normal 5.0-19.0 [facility] Comment on above: Performed By: #### 1 676229343, 4546329105, 6444499, 45936628, 3434721, 8541521750 ####[facility] (DEFAULT)[address] [place] [address] AST [Catalytic activity/Vol] 23 U/L Normal 15-41 [facility] Comment on above: Performed By: #### 1 554553948, 0458270697, 8640070, 90817539, 7273739, 7850843737 ####[facility] (DEFAULT)[address] [place] [address] Bili Total 0.3 mg/dL Normal 0.3-1.2 [facility] Comment on above: Performed By: #### 1 609078666, 1314377840, 7900483, 43121068, 1296176, 4455842626 ####[facility] (DEFAULT)[address] [place] [address] 35313 Calcium [Mass/Vol] 6.4 mg/dL Low 8.9-10.3 [facility] Comment on above: Performed By: #### 1 637340529, 4552339214, 5655324, 25746320, 6129219, 1557988320 ####[facility] (DEFAULT)[address] [place] [address] 88493 Chloride [Moles/Vol] 105 mmol/L Normal 101-111 [facility] Comment on above: Performed By: #### 1 103008065, 8562922917, 8641123, 64354759, 4695869, 0368763090 ####[facility] (DEFAULT)[address] [place] [address] 40453 CO2 [Moles/Vol] 25 mmol/L Normal 21-32 [facility] Comment on above: Performed By: #### 1 875907161, 7930351466, 7464982, 77844624, 9125362, 5182071794 ####[facility] (DEFAULT)[address] [place] [address] 94367 Creatinine [Mass/Vol] 0.64 mg/dL Normal 0.60-1.30 [facility] Comment on above: Performed By: #### 1 892340793, 0704403433, 0707071, 87689750, 0749706, 5180154388 ####[facility] (DEFAULT)[address] [place] [address] 69797 Globulin (S) [Mass/Vol] 1.4 g/dL Low 1.5-4.3 [facility] Comment on above: Performed By: #### 1 471553329, 5721639582, 2232410, 42988026, 7746461, 9839811581 ####[facility] (DEFAULT)[address] [place] [address] 44189 Glucose [Mass/Vol] 74.0 mg/dL Normal 74.0-118.0 [facility] Comment on above: Performed By: #### 1 028009605, 6291048137, 3056911, 07518274, 5531833, 5583620704 ####[facility] (DEFAULT)[address] [place] [address] 78206 Osmolality 279 mOsm/L Invalid Interpretation Code [facility] Comment on above: Performed By: #### 1 642110479, 8915332545, 2918784, 27546077, 0661773, 0450118797 ####[facility] (DEFAULT)[address] [place] [address] 93055 Potassium [Moles/Vol] 3.8 mmol/L Normal 3.6-5.1 [facility] Comment on above: Performed By: #### 1 092121273, 5931226310, 8113177, 61511272, 6947452, 4007069905 ####[facility] (DEFAULT)[address] [place] [address] 98226 Protein [Mass/Vol] 4.7 g/dL Low 6.5-8.1 [facility] Comment on above: Performed By: #### 1 936529142, 4215760918, 4695658, 43361343, 7509870, 2882726136 ####[facility] (DEFAULT)[address] [place] [address] 46597 Sodium [Moles/Vol] 142.0 mmol/L Normal 136.0-144.0 [facility] Comment on above: Performed By: #### 1 503231991, 2320039354, 4825300, 31246743, 1378119, 9112749329 ####[facility] (DEFAULT)[address] [place] [address] 72557 Urea nitrogen [Mass/Vol] 6 mg/dL Low 8-26 [facility] Comment on above: Performed By: #### 1 119336130, 7673667134, 3124944, 72060800, 4746451, 6162751310 ####[facility] (DEFAULT)[address] [place] [address] 12568 Urea nitrogen/Creatinin e [Mass ratio] 9.0 mg/mg Normal 4.6-16.2 [facility] Comment on above: Performed By: #### 1 160727150, 8174236498, 5396609, 77611664, 5463810, 6189062539 ####[facility] (DEFAULT)[address] [place] [address] 84119 Extra Greyon 08-10-2021 Tube Collected Yes Invalid Interpretation Code [facility] Comment on above: Performed By: #### 2 903372950, 64302253 ####[facility] (DEFAULT)[address] [place] [address] 36826 Extra Redon 08-10-2021 Tube Collected Yes Invalid Interpretation Code [facility] Comment on above: Performed By: #### 1 960117304, 5883964116, 8432258, 34530294, 3819918, 4056090080 ####[facility] (DEFAULT)[address] [place] [address] 24013 MAGR Intraoperative Recordon 08-10-2021 MAGR Intraoperative Record MAGR Intra-Op Record Summary Primary Physician: Noe Reed MD Finalized Date/Time: 08/10/21 10:21:22 Pt. Name: RENEASHVIN /Sex: 1955 FEMALE Med Rec #: [id number] Physician: Norman Hughes MD Financial #: [id number] Pt. Type: I Room/Bed: [facility] Admit/Disch: 08/06/21 17:10:50 - Institution: Case [...] Role Performed Surgeon - Primary Anesthesiologist of Box [place] Record Time In 08/10/21 09:00:00 08/10/21 09:00:00 08/10/21 09:00:00 Time Out 08/10/21 10:01:00 08/10/21 10:01:00 08/10/21 10:01:00 Procedure Esophagogastroduodenosco Esophagogastroduodenosco Esophagogastroduodenosco py and Colonosco py and Colonosco py and Colonosco Last Modified By: Helena Sandoval 08/10/21 Helena Sandoval 08/10/21 Helena Sandoval 08/10/21 10:19:10 10:19:10 10:19:10 Entry 4 Entry 5 Case Attendee Mandy Perdomo RN, Regina CST Role Performed Box [place] Scrub Personnel Time In 08/10/21 09:00:00 08/10/21 [...] injury r (more content not included)... Normal [facility] Magnesiumon 08-10-2021 Magnesium [Mass/Vol] 1.50 mg/dL Low 1.80-2.50 [facility] Comment on above: Performed By: #### 1 421693752, 0825635506, 0662997, 26221565, 4912604, 9035204154 ####[facility] (DEFAULT)[address] [place] [address] Nutrition Noteon 08-10-2021 Nutrition Note No new wts, Per inta ke records, Pt intake ranging 25-100%, eating better for lunch. Pt also taking supplements well. These appear to have been discontinued for scheduled colonscopy/EGD this am and not resumed. Per MD notes, tests unremarkable. With improving intake avg >/+ 50% of most meals, will hold off from re-adding Ensure. Will continue to monitor. [facility] Progress Note - Nurseon 07-15 Progress Note - Nurse pt returns from recovery. alert and drowsy. iv intact. pt able to tolerate water with no issues. denies pain. report received from holly perdomo RN. will continue to monitor. [Electronically Signed on: 08/10/2021 11:35 EST] Joslyn Roth RN [Verified on: 08/10/2021 11:35 EST] Joslyn Roth RN [facility] Telemetry Stripson 2 Telemetry Strips [id number]#1.00OTGTIFF [facility] Telemetry Strips [id number]#1.00OTGTIFF [facility] .Auto Diff 1on 08-09-2021 Auto Owen % 10 % Normal 07-25 [facility] Comment on above: Performed By: #### 2 171888, 2531820635, 7867703, 13545721 ####[facility] (DEFAULT)[address] [place] [address] 57489 Baso Abs# 0.0 x10 Normal 0.0-0.2 [facility] Comment on above: Performed By: #### 2 923761, 6790430420, 5339200, 33849970 ####[facility] (DEFAULT)[address] [place] [address] 08998 Basophils/100 WBC (Bld) 0.6 % Normal 0.2-2.0 [facility] Comment on above: Performed By: #### 2 886591, 5834792561, 9452190, 98667653 ####[facility] (DEFAULT)[address] [place] [address] 20369 Eos Abs# 0.2 x10 Normal 0.0-0.4 [facility] Comment on above: Performed By: #### 2 581893, 3600688767, 0306781, 77319091 ####[facility] (DEFAULT)[address] [place] [address] 97978 Eosinophils/100 WBC (Bld) 3.3 % Normal 0.9-4.0 [facility] Comment on above: Performed By: #### 2 570813, 9302328115, 5307817, 57170923 ####[facility] (DEFAULT)[address] [place] [address] 12471 Lymph Abs# 1.2 x10 Low 1.3-2.9 [facility] Comment on above: Performed By: #### 2 521437, 2751461660, 9379914, 51364396 ####[facility] (DEFAULT)[address] [place] [address] 78027 Lymphocytes/100 WBC (Bld) 21 % Normal 14-48 [facility] Comment on above: Performed By: #### 2 221016, 2270288153, 2808826, 74107922 ####[facility] (DEFAULT)[address] [place] [address] 01966 Owen Abs# 0.5 x10 Normal 0.0-0.8 [facility] Comment on above: Performed By: #### 2 291539, 1729658370, 0742040, 37509080 ####[facility] (DEFAULT)[address] [place] [address] 47634 Neut Abs# 3.6 x10 Normal 1.5-9.2 [facility] Comment on above: Performed By: #### 2 025121, 6855781825, 2141339, 01322966 ####[facility] (DEFAULT)[address] [place] [address] Neutrophils/100 WBC (Bld) 65 % Normal 44-88 [facility] Comment on above: Performed By: #### 2 504052, 1313997614, 0633378, 68243565 ####[facility] (DEFAULT)[address] [place] [address] Standardon 08-09-2021 eGFR Non AA >60 Invalid Interpretation Code [facility] Comment on above: Performed By: #### 2 488396, 2138549544, 2708209, 53398199 ####[facility] (DEFAULT)[address] [place] [address] eGFR AA >60 Invalid Interpretation Code [facility] Comment on above: Result Comment: Triage Technician juanito Kidney disease could be indicated at eGFRs of less than 60 ml/min/1.73m2. Kidney Failure is indicated at less than 15 ml/min/1.73m2 Performed By: #### 2 045726, 8508587028, 7968298, 40101955 ####[facility] (DEFAULT)[address] [place] [address] Anion gap [Moles/Vol] 16.0 mmol/L Normal 5.0-19.0 [facility] Comment on above: Performed By: #### 2 768876, 0959884013, 2085266, 68500551 ####[facility] (DEFAULT)[address] [place] [address] Calcium [Mass/Vol] 6.2 mg/dL Low 8.9-10.3 [facility] Comment on above: Performed By: #### 2 774062, 3178021493, 8514927, 54440593 ####[facility] [facility] (DEFAULT[facility] [place] [address] 22733 Chloride [Moles/Vol] 107 mmol/L Normal 101-111 [facility] Comment on above: Performed By: #### 2 490519, [id number], 9555594, 42692228 ####[facility] (DEFAULT)[address] [place] [address] 22179 CO2 [Moles/Vol] 24 mmol/L Normal 21-32 [facility] Comment on above: Performed By: #### 2 087794, [id number], 6363190, 96464761 ####[facility] (DEFAULT)[address] [place] [address] 80419 Creatinine [Mass/Vol] 0.72 mg/dL Normal 0.60-1.30 [facility] Comment on above: Performed By: #### 2 853219, [id number], 3371615, 13171844 ####[facility] (DEFAULT)[address] [place] [address] 34514 Glucose [Mass/Vol] 79.0 mg/dL Normal 74.0-118.0 [facility] Comment on above: Performed By: #### 2 440663, [id number], 0723879, 30567483 ####[facility] (DEFAULT)[address] [place] [address] 34992 Osmolality 282 mOsm/L Invalid Interpretation Code [facility] Comment on above: Performed By: #### 2 226633, [id number], 6408799, 63260253 ####[facility] (DEFAULT)[address] [place] [address] 57763 Potassium [Moles/Vol] 3.9 mmol/L Normal 3.6-5.1 [facility] Comment on above: Performed By: #### 2 069978, 4842761057, 0035283, 89119080 ####[facility] (DEFAULT)[address] [place] [address] 12702 Sodium [Moles/Vol] 143.0 mmol/L Normal 136.0-144.0 [facility] Comment on above: Performed By: #### 2 746060, 5664085492, 3788822, 14751730 ####[facility] (DEFAULT)[address] [place] [address] Urea nitrogen [Mass/Vol] 8 mg/dL Normal 8-26 [facility] Comment on above: Performed By: #### 2 458293, [id number], 9772282, 53252994 ####[facility] (DEFAULT)[address] [place] [address] 74575 Urea nitrogen/Creatinin e [Mass ratio] 11.0 mg/mg Normal 4.6-16.2 [facility] Comment on above: Performed By: #### 2 853568, [id number], 2010240, 11035299 ####[facility] (DEFAULT)[address] [place] [address] CBC w/ Auto Diffon Erythrocyte distribution width (RBC) [Ratio] 17.9 % High 11.5-15.0 [facility] Comment on above: Performed By: #### 2 124128, [id number], 5477750, 74142925 ####[facility] (DEFAULT)[address] [place] [address] 96181 Hematocrit (Bld) [Volume fraction] 24.1 % Low 33.7-40.4 [facility] Comment on above: Performed By: #### 2 493580, 4654603373, 4238341, 28446861 ####[facility] (DEFAULT)[address] [place] [address] Hemoglobin (Bld) [Mass/Vol] 7.2 g/dL Low 11.3-15.9 [facility] Comment on above: Result Comment: RIGO barrientos, pt received 1 unit on 08/06/21 Performed By: #### 2 854081, [id number], 8316750, 36999882 ####[facility] (DEFAULT)[address] [place] [address] Instr WBC 5.4 x10 Invalid Interpretation Code [facility] Comment on above: Performed By: #### 2 089516, [id number], 5608560, 65300739 ####[facility] (DEFAULT)[address] [place] [address] Man Diff? Auto Normal [facility] Comment on above: Performed By: #### 2 545519, 1079565960, 2825264, 60339009 ####[facility] (DEFAULT)[address] [place] [address] 81870 MCH (RBC) [Entitic mass] 28 pg Normal 24-34 [facility] Comment on above: Performed By: #### 2 157193, 8302814025, 1119620, 50521054 ####[facility] (DEFAULT)[address] [place] [address] 22596 MCHC (RBC) [Mass/Vol] 30 g/dL Normal 26-37 [facility] Comment on above: Performed By: #### 2 257262, 1107888419, 8848156, 54507091 ####[facility] (DEFAULT)[address] [place] [address] MCV (RBC) [Entitic vol] 94 fL Normal 81-100 [facility] Comment on above: Performed By: #### 2 630741, 6668667332, 7257533, 68096067 ####[facility] (DEFAULT)[address] [place] [address] Platelet 336 x10 Normal 138-427 [facility] Comment on above: Performed By: #### 2 199503, [id number], 5139126, 40775914 ####[facility] (DEFAULT)[address] [place] [address] Platelet mean volume (Bld) [Entitic vol] 9.5 fL Normal 6.3-10.2 [facility] Comment on above: Performed By: #### 2 833573, 5697370949, 2864469, 84554525 ####[facility] (DEFAULT)[address] [place] [address] RBC 2.57 x10 Low 3.70-5.30 [facility] Comment on above: Performed By: #### 2 541539, 1107873359, 9581810, 94973756 ####[facility] (DEFAULT)[address] [place] [address] 22195 WBC 5.4 x10 Normal 3.5-10.5 [facility] Comment on above: Performed By: #### 2 510746, 2376169590, 5692723, 09417710 ####[facility] (DEFAULT)[address] [place] [address] 59754 Cortisol LCon 08-09-2021 Cortisol LC 15.5 ug/dL Invalid Interpretation Code [facility] Comment on above: Result Comment: Quinton isol AM 6.2 - 19.4 Cortisol PM 2.3 - 11.9 Performed At: [facility] [address] [id number] Brenna Iyer PhD Ph:[phone] Performed By: #### 7 890944, 12934126, 6840577, [id number] #### [facility] (DEFAULT) [address] [place] [address] 00738 Lab - AP Resultson 2 Lab - AP Results [id number]#1.00OTGTIFF Normal [facility] Magnesiumon 08-09-2021 Magnesium [Mass/Vol] 1.56 mg/dL Low 1.80-2.50 [facility] Comment on above: Performed By: #### 2 328429, 5033242814, 4737790, 20978419 ####[facility] (DEFAULT)[address] [place] [address] 21009 Telemetry Stripson 2 Telemetry Strips [id number]#1.00OTGTIFF Normal [facility] .Auto Diff 1on 08-08-2021 Auto Owen % 8 % Normal -12 [facility] Comment on above: Performed By: #### 7 995250, 82120795, 2265295, 6499492671 #### [facility] (DEFAULT) [address] [place] [address] 18309 Baso Abs# 0.0 x10 Normal 0.0-0.2 [facility] Comment on above: Performed By: #### 7 477376, 25686733, 5282784, 0180212533 #### [facility] (DEFAULT) [address] [place] [address] 26545 Basophils/100 WBC (Bld) 0.8 % Normal 0.2-2.0 [facility] Comment on above: Performed By: #### 7 885917, 50664389, 9922013, 5604938113 #### [facility] (DEFAULT) [address] [place] [address] 22620 Eos Abs# 0.2 x10 Normal 0.0-0.4 [facility] Comment on above: Performed By: #### 7 196059, 31877368, 3497590, 3647407971 #### [facility] (DEFAULT) [address] [place] [address] 64819 Eosinophils/100 WBC (Bld) 2.6 % Normal 0.9-4.0 [facility] Comment on above: Performed By: #### 7 689744, 50027833, 1981390, 1493926238 #### [facility] (DEFAULT) [address] [place] [address] 01665 Lymph Abs# 1.8 x10 Normal 1.3-2.9 [facility] Comment on above: Performed By: #### 7 270218, 75138120, 9692518, 7662078748 #### [facility] (DEFAULT) [address] [place] [address] 60815 Lymphocytes/100 WBC (Bld) 27 % Normal 14-48 [facility] Comment on above: Performed By: #### 7 455847, 65621334, 6246052, 1471835100 #### [facility] (DEFAULT) [address] [place] [address] 50643 Owen Abs# 0.5 x10 Normal 0.0-0.8 [facility] Comment on above: Performed By: #### 7 046191, 94422347, 6371031, 1846090412 #### [facility] (DEFAULT) [address] [place] [address] 08229 Neut Abs# 4.0 x10 Normal 1.5-9.2 [facility] Comment on above: Performed By: #### 7 747735, 78506819, 0070903, 7585675715 #### [facility] (DEFAULT) [address] [place] [address] Neutrophils/100 WBC (Bld) 62 % Normal 44-88 [facility] Comment on above: Performed By: #### 7 674249, 78508248, 9713457, 2807366352 #### [facility] (DEFAULT) [address] [place] [address] Ambulance Noteon 08-08-2021 Ambulance Note [id number] Normal [facility] BMP Standardon 08-08-2021 eGFR Non AA >60 Invalid Interpretation Code [facility] Comment on above: Performed By: #### 7 816117, 07700046, 4960251, [id number] #### [facility] (DEFAULT) [address] [place] [address] eGFR AA >60 Invalid Interpretation Code [facility] Comment on above: Result Comment: Triage Technician juanito Kidney disease could be indicated at eGFRs of less than 60 ml/min/1.73m2. Kidney Failure is indicated at less than 15 ml/min/1.73m2 Performed By: #### 7 865974, 32321259, 3954997, 2428554910 #### [facility] (DEFAULT) [address] [place] [address] 76354 Anion gap [Moles/Vol] 15.0 mmol/L Normal 5.0-19.0 [facility] Comment on above: Performed By: #### 7 307267, 71632356, 4779058, 8926259508 #### [facility] (DEFAULT) [address] [place] [address] 70190 Calcium [Mass/Vol] 5.9 mg/dL Critically abnormal 8.9-10.3 [facility] Comment on above: Result Comment: Crit ical CALC 5.9 result called and read back ok to: DEMETRA DAS RN 2S at: 05:25:23 08/08/2021 by: SYBIL Performed By: #### 7 665785, 35891323, 7364480, [id number] #### [facility] (DEFAULT) [address] [place] [address] 68959 Chloride [Moles/Vol] 109 mmol/L Normal 101-111 [facility] Comment on above: Performed By: #### 7 466777, 74238642, 3555445, 6299265475 #### [facility] (DEFAULT) [address] [place] [address] 33534 CO2 [Moles/Vol] 20 mmol/L Low 21-32 [facility] Comment on above: Performed By: #### 7 439365, 12673753, 1698771, 4586322626 #### [facility] (DEFAULT) [address] [place] [address] 80963 Creatinine [Mass/Vol] 0.68 mg/dL Normal 0.60-1.30 [facility] Comment on above: Performed By: #### 7 963842, 70625114, 5891174, 9307022329 #### [facility] (DEFAULT) [address] [place] [address] 67103 Glucose [Mass/Vol] 82.0 mg/dL Normal 74.0-118.0 [facility] Comment on above: Performed By: #### 7 532621, 69634043, 8637417, 2414709338 #### [facility] (DEFAULT) [address] [place] [address] 96810 Osmolality 277 mOsm/L Invalid Interpretation Code [facility] Comment on above: Performed By: #### 7 961085, 05420688, 2315818, 2499099121 #### [facility] (DEFAULT) [address] [place] [address] 87199 Potassium [Moles/Vol] 3.6 mmol/L Normal 3.6-5.1 [facility] Comment on above: Performed By: #### 7 139709, 29181393, 8783689, 3031503036 #### [facility] (DEFAULT) [address] [place] [address] 49528 Sodium [Moles/Vol] 140.0 mmol/L Normal 136.0-144.0 [facility] Comment on above: Performed By: #### 7 373331, 96030960, 4257445, 5705415306 #### [facility] (DEFAULT) [address] [place] [address] 31775 Urea nitrogen [Mass/Vol] 9 mg/dL Normal 8- [facility] Comment on above: Performed By: #### 7 156475, 84717889, 9015975, 2728446667 #### [facility] (DEFAULT) [address] [place] [address] Urea nitrogen/Creatinin e [Mass ratio] 13.0 mg/mg Normal 4.6-16.2 [facility] Comment on above: Performed By: #### 7 551553, 47231547, 2777825, 6008327025 #### [facility] (DEFAULT) [address] [place] [address] CBC w/ Auto Diffon Erythrocyte distribution width (RBC) [Ratio] 18.4 % High 11.5-15.0 [facility] Comment on above: Performed By: #### 1 434073363, 4578682, 26935795, 2318344 #### [facility] (DEFAULT) [address] [place] [address] Hematocrit (Bld) [Volume fraction] 31.6 % Low 33.7-40.4 [facility] Comment on above: Performed By: #### 1 422629870, 4945672, 24077970, 3698833 #### [facility] (DEFAULT) [address] [place] [address] 99910 Hemoglobin (Bld) [Mass/Vol] 9.6 g/dL Low 11.3-15.9 [facility] Comment on above: Performed By: #### 1 107568096, 4354786, 96408030, 1731167 #### [facility] (DEFAULT) [address] [place] [address] Instr WBC 6.5 x10 Invalid Interpretation Code [facility] Comment on above: Performed By: #### 1 858133183, 7131275, 99902463, 4083711 #### [facility] (DEFAULT) [address] [place] [address] Man Diff? Auto Normal [facility] Comment on above: Performed By: #### 1 555268540, 3861557, 32277786, 6926900 #### [facility] (DEFAULT) [address] [place] [address] 91259 MCH (RBC) [Entitic mass] 28 pg Normal 24-34 [facility] Comment on above: Performed By: #### 1 282455356, 3364737, 43724407, 9335099 #### [facility] (DEFAULT) [address] [place] [address] 57449 MCHC (RBC) [Mass/Vol] 30 g/dL Normal 26-37 [facility] Comment on above: Performed By: #### 1 397875153, 0618474, 75952324, 9016379 #### [facility] (DEFAULT) [address] [place] [address] 55603 MCV (RBC) [Entitic vol] 92 fL Normal 81-100 [facility] Comment on above: Performed By: #### 1 361606477, 5362874, 45346091, 8035720 #### [facility] (DEFAULT) [address] [place] [address] 36650 Platelet 450 x10 High 138-427 [facility] Comment on above: Performed By: #### 1 [id number], 7460218, 06483197, 5764618 #### [facility] (DEFAULT) [address] [place] [address] 12829 Platelet mean volume (Bld) [Entitic vol] 9.4 fL Normal 6.3-10.2 [facility] Comment on above: Performed By: #### 1 117765849, 4099735, 70439373, 4570317 #### [facility] (DEFAULT) [address] [place] [address] 53513 RBC 3.45 x10 Low 3.70-5.30 [facility] Comment on above: Performed By: #### 1 269746185, 0019057, 67185907, 5971347 #### [facility] (DEFAULT) [address] [place] [address] 50886 WBC 6.5 x10 Normal 3.5-10.5 [facility] Comment on above: Performed By: #### 1 285536655, 9569927, 88114428, 4770323 #### [facility] (DEFAULT) [address] [place] [address] 69962 CRPon 08-08-2021 CRP 0.6 mg/dL High <=0.5 [facility] Comment on above: Performed By: #### 7 174662, 19809909, 9122386, 7578901289 #### [facility] (DEFAULT) [address] [place] [address] 47512 Haptoglobin LCon 08-08-2021 Haptoglobin LC 162 mg/dL Invalid Interpretation Code 69-813 [facility] Comment on above: Result Comment: Perf ormed At: [facility] [address] [id number] Brenna Iyer PhD Ph:[phone] Performed By: #### 1 414295496, 5644722, 61116745, 4102076 #### [facility] (DEFAULT) [address] [place] [address] 97329 Magnesiumon 08-08-2021 Magnesium [Mass/Vol] 1.47 mg/dL Low 1.80-2.50 [facility] Comment on above: Performed By: #### 7 813980, 64246805, 5669656, 8361195531 #### [facility] (DEFAULT) [address] [place] [address] 67587 Nutrition Noteon 08-08-2021 SARS-CoV-2 (COVID-19) RNA JESSICA+probe [...] [facility] Tele[facility] Stripson Telemetry Strips [id number] Normal [facility] .Auto Diff 1on 08-07-2021 Auto Owen % 8 % Normal -12 [facility] Comment on above: Performed By: #### 1 [id number], 5577065, 67816648, 3714423 #### [facility] (DEFAULT) [address] [place] [address] 62117 Baso Abs# 0.0 x10 Normal 0.0-0.2 [facility] Comment on above: Performed By: #### 1 871797030, 9430391, 16304821, 5616161 #### [facility] (DEFAULT) [address] [place] [address] 95056 Basophils/100 WBC (Bld) 0.6 % Normal 0.2-2.0 [facility] Comment on above: Performed By: #### 1 259571395, 4065937, 67765626, 7891572 #### [facility] (DEFAULT) [address] [place] [address] 82943 Eos Abs# 0.1 x10 Normal 0.0-0.4 [facility] Comment on above: Performed By: #### 1 464173694, 8904571, 95741769, 8031140 #### [facility] (DEFAULT) [address] [place] [address] 01381 Eosinophils/100 WBC (Bld) 1.3 % Normal 0.9-4.0 [facility] Comment on above: Performed By: #### 1 616526850, 1435628, 50172814, 0351243 #### [facility] (DEFAULT) [address] [place] [address] 67962 Lymph Abs# 1.6 x10 Normal 1.3-2.9 [facility] Comment on above: Performed By: #### 1 413925980, 6582840, 50592843, 4920679 #### [facility] (DEFAULT) [address] [place] [address] Lymphocytes/100 WBC (Bld) 24 % Normal 14-48 [facility] Comment on above: Performed By: #### 1 105023210, 3803743, 20231967, 3809742 #### [facility] (DEFAULT) [address] [place] [address] Owen Abs# 0.6 x10 Normal 0.0-0.8 [facility] Comment on above: Performed By: #### 1 738835442, 4380504, 21150864, 2554807 #### [facility] (DEFAULT) [address] [place] [address] Neut Abs# 4.4 x10 Normal 1.5-9.2 [facility] Comment on above: Performed By: #### 1 529639887, 7123013, 00062221, 7608643 #### [facility] (DEFAULT) [address] [place] [address] Neutrophils/100 WBC (Bld) 65 % Normal 44-88 [facility] Comment on above: Performed By: #### 1 111941726, 7787534, 69877326, 7510699 #### [facility] (DEFAULT) [address] [place] [address] CBC w/ Auto Diffon 2 Erythrocyte distribution width (RBC) [Ratio] 18.4 % High 11.5-15.0 [facility] Comment on above: Performed By: #### 1 050172488, 0547183, 10449906, 7941517 #### [facility] (DEFAULT) [address] [place] [address] Hematocrit (Bld) [Volume fraction] 33.1 % Low 33.7-40.4 [facility] Comment on above: Performed By: #### 1 988999896, 4219803, 06855411, 7216393 #### [facility] (DEFAULT) [address] [place] [address] 67950 Hemoglobin (Bld) [Mass/Vol] 9.9 g/dL Low 11.3-15.9 [facility] Comment on above: Result Comment: Charo ent received 1 unit of PRBC's on 08/06/21 Performed By: #### 1 173479859, 8565484, 53940835, 6198183 #### [facility] (DEFAULT) [address] [place] [address] 71078 Instr WBC 6.7 x10 Invalid Interpretation Code [facility] Comment on above: Performed By: #### 1 447752703, 4047106, 22920654, 5105891 #### [facility] (DEFAULT) [address] [place] [address] 16605 Man Diff? Auto Normal [facility] Comment on above: Performed By: #### 1 687857572, 3239445, 87551650, 6210585 #### [facility] (DEFAULT) [address] [place] [address] 43223 MCH (RBC) [Entitic mass] 28 pg Normal 24-34 [facility] Comment on above: Performed By: #### 1 283403585, 3914029, 78381023, 2883256 #### [facility] (DEFAULT) [address] [place] [address] 07326 MCHC (RBC) [Mass/Vol] 30 g/dL Normal 26-37 [facility] Comment on above: Performed By: #### 1 388605434, 1643141, 20607961, 6682875 #### [facility] (DEFAULT) [address] [place] [address] 49974 MCV (RBC) [Entitic vol] 92 fL Normal 81-100 [facility] Comment on above: Performed By: #### 1 885382756, 2077938, 87273791, 0968846 #### [facility] (DEFAULT) [address] [place] [address] 49231 Platelet 515 x10 High 138-427 [facility] Comment on above: Performed By: #### 1 710361373, 4080345, 14238202, 8713448 #### [facility] (DEFAULT) [address] [place] [address] Platelet mean volume (Bld) [Entitic vol] 9.0 fL Normal 6.3-10.2 [facility] Comment on above: Performed By: #### 1 806505598, 5124155, 82443025, 0645193 #### [facility] (DEFAULT) [address] [place] [address] 52565 RBC 3.60 x10 Low 3.70-5.30 [facility] Comment on above: Performed By: #### 1 374402443, 0497499, 12370368, 3632533 #### [facility] (DEFAULT) [address] [place] [address] 57539 WBC 6.7 x10 Normal 3.5-10.5 [facility] Comment on above: Performed By: #### 1 125067896, 5797689, 14463413, 9198279 #### [facility] (DEFAULT) [address] [place] [address] 08293 CMP Standardon 08-07-2021 Albumin [Mass/Vol] 1.6 g/dL Low 3.5-5.0 [facility] Comment on above: Order Comment: I [...] blood work. CJ Performed By: #### 1 128913586, 5061443, 01306411, 6663731 #### [facility] (DEFAULT) [address] [place] [address] 42341 Albumin/Globulin [Mass ratio] 0.7 {ratio} Low 1.4-2.6 [...] blood work. CJ Performed By: #### 1 495686727, 3256298, 18942498, 0329224 #### [facility] (DEFAULT) [address] [place] [address] 15295 Alk Phos 48 IU/L Normal 32-91 University [...] blood work. CJ Performed By: #### 1 681283715, 1369003, 39047387, 4483310 #### [facility] (DEFAULT) [address] [place] [address] 12887 ALT [Catalytic activity/Vol] 21.0 U/L Normal 14.0-54.0 [...] blood work. CJ Performed By: #### 1 577296133, 7054115, 44514031, 7030793 #### [facility] (DEFAULT) [address] [place] [address] 18436 Anion gap [Moles/Vol] 14.0 mmol/L Normal 5.0-19.0 [...] blood work. CJ Performed By: #### 1 406264805, 9862868, 91201640, 5775057 #### [facility] (DEFAULT) [address] [place] [address] [id number] AST [Catalytic activity/Vol] 26 U/L Normal 15-41 [...] blood work. CJ Performed By: #### 1 [id number] #### [facility] (DEFAULT) [address] [place] [address] [id number] Bili Total 0.2 mg/dL Low 0.3-1.2 University [...] blood work. CJ Performed By: #### 1 [id number], [id number] #### [facility] (DEFAULT) [address] [place] [address] [id number] Calcium [Mass/Vol] 5.9 mg/dL Critically abnormal 8.9-10.3 [...] lts Called To Shiloh OBRIEN 2S By [facility] And Read Back For Confirmation On 08/07/2021 09:25:59 EST. Performed By: #### 1 [id number], 9591430, 59409831, 2363353 #### [facility] (DEFAULT) [address] [place] [address] 27339 Chloride [Moles/Vol] 108 mmol/L Normal 101-111 University [...] blood work. CJ Performed By: #### 1 [id number], 9219397, 42691422, 4528267 #### [facility] (DEFAULT) [address] [place] [address] 11869 CO2 [Moles/Vol] 21 mmol/L Normal 21-32 University [...] blood work. CJ Performed By: #### 1 [id number], 3452631, 33852139, 5882708 #### [facility] (DEFAULT) [address] [place] [address] 43183 Creatinine [Mass/Vol] 0.61 mg/dL Normal 0.60-1.30 University [...] blood work. CJ Performed By: #### 1 [id number], 2687622, 96154114, 5438910 #### [facility] (DEFAULT) [address] [place] [address] 59395 Globulin (S) [Mass/Vol] 2.3 g/dL Normal 1.5-4.3 [...] blood work. CJ Performed By: #### 1 [id number], 5572485, 51918057, 7269735 #### [facility] (DEFAULT) [address] [place] [address] 43314 Glucose [Mass/Vol] 79.0 mg/dL Normal 74.0-118.0 [facility] Comment on above: Order Comment: I [...] blood work. CJ Performed By: #### 1 [id number], 0765189, 96014641, 2961251 #### [facility] (DEFAULT) [address] [place] [address] 66965 Osmolality 277 mOsm/L Invalid Interpretation Code University [...] blood work. CJ Performed By: #### 1 [id number], 6393428, 91212411, 9941959 #### [facility] (DEFAULT) [address] [place] [address] 31247 Potassium [Moles/Vol] 3.2 mmol/L Low 3.6-5.1 University [...] IV T herapy Performed By: #### 1 [id number], 6075876, 71203123, 7099316 #### [facility] (DEFAULT) [address] [place] [address] 46826 Protein [Mass/Vol] 3.9 g/dL Low 6.5-8.1 [facility] Comment on above: Order Comment: I [...] blood work. CJ Performed By: #### 1 [id number], 2718407, 72759497, 8886110 #### [facility] (DEFAULT) [address] [place] [address] 95901 Sodium [Moles/Vol] 140.0 mmol/L Normal 136.0-144.0 [facility] Comment on above: Order Comment: I [...] blood work. CJ Performed By: #### 1 [id number], 3109650, 63076379, 9051642 #### [facility] (DEFAULT) [address] [place] [address] 80412 Urea nitrogen [Mass/Vol] 8 mg/dL Normal 8-26 [...] blood work. CJ Performed By: #### 1 455126962, 4777982, 51719967, 4551393 #### [facility] (DEFAULT) [address] [place] [address] Urea nitrogen/Creatinin e [Mass ratio] 13.0 mg/mg [...] blood work. CJ Performed By: #### 1 [id number], 8055731, 34510794, 1211036 #### [facility] (DEFAULT) [address] [place] [address] eGFR Non AA >60 Invalid Interpretation Code [...] blood work. CJ Performed By: #### 1 [id number], 3503074, 60159261, 6971918 #### [facility] (DEFAULT) [address] [place] [address] eGFR AA >60 Invalid Interpretation Code University [...] ALL 2am blood work. CJ Result Comment: Triage Technician juanito Kidney disease could be indicated at eGFRs of less than 60 ml/min/1.73m2. Kidney Failure is indicated at less than 15 ml/min/1.73m2 Performed By: #### 1 [id number], 2408603, 92816264, 8960401 #### [facility] (DEFAULT) [address] [place] [address] Consent Formson 08-07-2021 Consent Forms [id number] Normal [facility] ED Clinical Summaryon 2021 ED Clinical Summary [facility] - Emergency Department [address] [place] [address] ED Clinical Summary PERSON INFORMATION Name: ASHVIN RENE Age: 65 Years Sex: FEMALE : 1955 MRN: Acct#: Visit Reason: General medical; ANEMIA, ELEVATED TROPONIN Arrival: 08/06/2021 17:10:50 Discharge: LOS: 000 05:17 Check In: 08/06/2021 17:10:50 Checkout:08/06/2021 22:27:57 Address: [address] [place] [address] PCP: TUSHAR SOLANO JR. PROVIDER INFORMATION Provider Role Assigned Unassigned Danni Souza ED PA 08/06/2021 17:12:50 08/06/2021 17:16:23 EVERTON NEGRON ED PA 08/06/2021 17:18:50 Jessica Al PRETZEL TWISTER Nurse 08/06/2021 17:45:27 08/06/2021 19:14:08 Gely Adan PRETZEL TWISTER Nurse 08/06/2021 19:14:09 VITALS INFORMATION Vital Sign [...] female presenting to the emergency department from [facility] for evaluation of low blood pressure possibility [...] not currently on diuretics secondary to her tree surgeon helper stating that she should not take these. [...] -Pharynx is pink and dry NECK: -Supple ([id number]): non-tender. CARD: -Rate and rhythm: Regular -Edema: [...] was performed with patient's consent and nurse shared services and outsourcing manager Jessica in the room the entire [...] this with (more content not included)... Normal [facility] ED Patient Education Noteon 08-07-2021 ED Patient Education Note Education Materials [facility] ED Patient Summaryon 022 ED Patient Summary [facility] - Emergency Department [address] [place] [address] PATIENT DISCHARGE INSTRUCTIONS Patient Information Name: ASHVIN RENE Age: 65 Years Date of : 1955 Reason For Visit: General medical; ANEMIA, ELEVATED TROPONIN Arrival Time: 08/06/2021 17:10:50 Primary Care Physician: TUSHAR SOLANO JR. Attending Physician: Waqas Castro MD Comment: Visit Diagnosis: Diagnoses This Visit Anemia (D64.9) General medical ([id number]) GI bleed (K92.2) Peripheral edema (R60.9) Prescription Information: If you have been given a prescription for narcotics, seek immediate medical attention if you have any difficulty breathing or any sudden status changes such as confusion and sleepiness. If you or anyone you know is experiencing suicidal thoughts, mental health, alcohol and/or drug addiction problems; contact the [facility] 03/02 Crisis Hotline -Text 4HKCU to 606281. If you received any narcotics, sedation, or [...] and treatment you received today in the [facility] Emergency Department were for an urgent problem and are not intended as complete care. It is important for you to follow up with a doctor, nurse practitioner, or physician?s access services assistant for ongoing care. If your symptoms [...] of medications post discharge. Please inform your public relations director/provider of your visit and for further instruction [...] mg oral tablet) potassium chloride (Potassium Chloride (Jkm-Dqiz-Ibr 10) 10 mEq oral tablet, extended release) [...] Comment on above: Performed By: #### 1 [id number], 6391143, 51468253, 8494335 #### [facility] (DEFAULT) [address] [place] [address] 77219 Folateon 08-07-2021 Folic Acid Level 6.62 ng/mL Normal 5.90-24.80 [facility] Comment on above: Result Comment: Norm al folate results > 3.0 ng/mL. Performed By: #### 1 [id number], 9983204, 77035076, 3785549 #### [facility] (DEFAULT) [address] [place] [address] Free T4on 08-07-2021 Free T4 [Mass/Vol] 1.30 ng/dL High 0.61-1.12 [facility] Comment on above: Result Comment: Spec imens that contain high levels of Biotin may cause false high results Performed By: #### 1 [id number], 7671650, 92898384, 4299486 #### [facility] (DEFAULT) [address] [place] [address] 15497 Iron Profileon 08-07-2021 Iron [Mass/Vol] 24.0 ug/dL Low 28.0-170.0 [facility] Comment on above: Performed By: #### 1 [id number], 7978587, 29601596, 4092892 #### [facility] (DEFAULT) [address] [place] [address] Iron Sat 15 % Low 20-55 [facility] Comment on above: Performed By: #### 1 [id number], 4618951, 36596128, 1521378 #### [facility] (DEFAULT) [address] [place] [address] TIBC 158 mcg/dL Low 250-400 [facility] Comment on above: Performed By: #### 1 [id number], 7287899, 14904692, 7776615 #### [facility] (DEFAULT) [address] [place] [address] Transferrin [Mass/Vol] 113.1 mg/dL Low 192.0-382.0 [facility] Comment on above: Performed By: #### 1 454327652, 7343063, 49526303, 4593403 #### [facility] (DEFAULT) [address] [place] [address] 46922 LDHon 08-07-2021 LDH 299.0 IU/L High 98.0-192.0 [facility] Comment on above: Performed By: #### 1 550235672, 4249612, 47673472, 8805410 #### [facility] (DEFAULT) [address] [place] [address] 65751 Magnesiumon 08-07-2021 Magnesium [Mass/Vol] 0.98 mg/dL Low 1.80-2.50 [facility] Comment on above: Performed By: #### 1 [id number], 3445685, 50219635, 7923441 #### [facility] (DEFAULT) [address] [place] [address] 08066 Occult Blood, Fecalon 2021 Internal QC OK? Pass Normal [facility] Comment on above: Performed By: #### 1 [id number], 7674966, 23845992, 2454634 #### [facility] (DEFAULT) [address] [place] [address] 11164 Occult Bld Stl Positive Abnormal Negative [facility] Comment on above: Performed By: #### 1 [id number], 5746322, 77715454, 7209792 #### [facility] (DEFAULT) [address] [place] [address] 21021 Path Reviewon 08-07-2021 Pathology Test See Report Normal [facility] Comment on above: Result Comment: Sepa rate report to follow. Sent to [facility] for Path Review Performed By: #### 1 [id number], 4144352, 35236768, 7385310 #### [facility] (DEFAULT) [address] [place] [address] 82272 Retic Counton 08-07-2021 Reticulocyte 2.8 % High 0.5-1.5 [facility] Comment on above: Performed By: #### 1 [id number], 0098639, 55780574, 8798497 #### [facility] (DEFAULT) [address] [place] [address] 36883 TSH w/ Reflex to FT4on 08-07 TSH Qn 16.54 m[IU]/L High 0.45-5.33 [facility] Comment on above: Result Comment: Gene ral Population (males and non- females, aged 21-88) 0.45 - 5.33 Females, 1st Trimester 0.05 - 3.70 Females, 2nd Trimester 0.31 - 4.35 Females, 3rd Trimester 0.41 - 5.18 Performed By: #### 1 [id number], 7225129, 55301048, 0954856 #### [facility] (DEFAULT) [address] [place] [address] Telemetry Stripson 2 Telemetry Strips [id number] Normal [facility] TnI HSon [...] Baseline Delta 1Hr <18ng/mL 50-60% >18ng/mL 20% ([place] [employer] Guidelines February 2018) Performed By: #### 1 [id number], 8968679, 38731679, 3405248 #### [facility] (DEFAULT) [address] [place] [address] Troponin I High Sensitivity 19 pg/mL Critically [...] Baseline Delta 1Hr <18ng/mL 50-60% >18ng/mL 20% ([place] [employer] Guidelines February 2018) Performed By: #### 7 548320, 79951222, 6698241, [id number] #### [facility] (DEFAULT) [address] [place] [address] US Echocardiogram Completeon 08-07-2021 US Echocardiogram Complete [...] tricuspid regurgitation. Tim Harrington MD JOB #: [id number] bk Final Dictated by: Tim Harrington MD Dictated DT/TM: 08/08/21 8:50 Signed (Electronic Signature): Tim Harrington MD 08/09/21 8:25 am Normal [facility] Vit B12 Lvlon 08-07-2021 Vit B12 853 Normal 180-914 [facility] Comment on above: Performed By: #### 1 [id number], 5617393, 28910523, 1128977 #### [facility] (DEFAULT) [address] [place] [address] .Auto Diff 1on 08-06-2021 Auto Owen % 7 % Normal 1-12 [facility] Comment on above: Performed By: #### 7 614504, 54031677, 4163435, [id number] #### [facility] (DEFAULT) [address] [place] [address] Baso Abs# 0.0 x10 Normal 0.0-0.2 [facility] Comment on above: Performed By: #### 7 251414, 50746097, 7877923, 4987276043 #### [facility] (DEFAULT) [address] [place] [address] Basophils/100 WBC (Bld) 0.5 % Normal 0.2-2.0 [facility] Comment on above: Performed By: #### 7 725925, 71235820, 4887653, 4147703949 #### [facility] (DEFAULT) [address] [place] [address] Eos Abs# 0.0 x10 Normal 0.0-0.4 [facility] Comment on above: Performed By: #### 7 309888, 19048810, 5074203, [id number] #### [facility] (DEFAULT) [address] [place] [address] Eosinophils/100 WBC (Bld) 0.7 % Low 0.9-4.0 [facility] Comment on above: Performed By: #### 7 426068, 60265642, 9733687, 5292591542 #### [facility] (DEFAULT) [address] [place] [address] Lymph Abs# 1.2 x10 Low 1.3-2.9 [facility] Comment on above: Performed By: #### 7 985318, 00074790, 4763768, [id number] #### [facility] (DEFAULT) [address] [place] [address] Lymphocytes/100 WBC (Bld) 16 % Normal 14-48 [facility] Comment on above: Performed By: #### 7 764972, 97059786, 4717018, 8847712666 #### [facility] (DEFAULT) [address] [place] [address] 76075 Owen Abs# 0.5 x10 Normal 0.0-0.8 [facility] Comment on above: Performed By: #### 7 093131, 66643448, 0191961, 3547387105 #### [facility] (DEFAULT) [address] [place] [address] 02802 Neut Abs# 5.7 x10 Normal 1.5-9.2 [facility] Comment on above: Performed By: #### 7 110832, 38034274, 2709277, 4702954781 #### [facility] (DEFAULT) [address] [place] [address] Neutrophils/100 WBC (Bld) 76 % Normal 44-88 [facility] Comment on above: Performed By: #### 7 027654, 73594191, 8766879, 3513667100 #### [facility] (DEFAULT) [address] [place] [address] ABORhon 08-06-2021 ABO and Rh group Nom (Bld) Hx Check: Not Found Anti-A: 0 Anti-B: 0 Anti-D: 4+ DCon: 0 A1: 4+ B: 4+ ABORh Interp: O POS Invalid Interpretation Code [facility] Comment on above: Performed By: #### 7 080860, 05419221, 0009283, [id number] #### [facility] (DEFAULT) [address] [place] [address] 22980 ABORh Retypeon 08-06-2021 ABO and Rh group Nom (Bld) Ordered by Discern. Anti-A: 0 Anti-B: 0 Anti-D: 4+ DCon: 0 A1: 3+ B: 3+ ABORh Retype: O POS Invalid Interpretation Code [facility] Comment on above: Performed By: #### 7 596584, 64939463, 2898944, [id number] #### [facility] (DEFAULT) [address] [place] [address] 16555 ABSC Gelon 08-06-2021 ABSC Gel Negative Normal [facility] Comment on above: Performed By: #### 7 876102, 95475120, 9350839, [id number] #### [facility] (DEFAULT) [address] [place] [address] 44344 BNP.on 08-06-2021 Natriuretic peptide B (Bld) [Mass/Vol] [...] infarction, and CHF. Performed By: #### 7 850534, 05649992, 6930776, [id number] #### [facility] (DEFAULT) [address] [place] [address] Blood Bank IDon 08-06-2021 Blood Bank ID BBID: [id number] Invalid Interpretation Code [facility] Comment on above: Performed By: #### 7 701458, 59807331, 8395797, [id number] #### [facility] (DEFAULT) [address] [place] [address] CBC w/ Auto Diffon Erythrocyte distribution width (RBC) [Ratio] 19.4 % High 11.5-15.0 [facility] Comment on above: Performed By: #### 7 689507, 31070634, 7621539, [id number] #### [facility] (DEFAULT) [address] [place] [address] Hematocrit (Bld) [Volume fraction] 24.7 % Low 33.7-40.4 [facility] Comment on above: Performed By: #### 7 029411, 64957547, 4386116, 6760684817 #### [facility] (DEFAULT) [address] [place] [address] Hemoglobin (Bld) [Mass/Vol] 7.4 g/dL Low 11.3-15.9 [facility] Comment on above: Performed By: #### 7 416473, 01945623, 7130025, [id number] #### [facility] (DEFAULT) [address] [place] [address] Instr WBC 7.5 x10 Invalid Interpretation Code [facility] Comment on above: Performed By: #### 7 759523, 79735928, 0782570, [id number] #### [facility] (DEFAULT) [address] [place] [address] Man Diff? RBC Morph Only Normal [facility] Comment on above: Performed By: #### 7 054626, 80683737, 1172137, [id number] #### [facility] (DEFAULT) [address] [place] [address] MCH (RBC) [Entitic mass] 28 pg Normal 24-34 [facility] Comment on above: Performed By: #### 7 576876, 18161982, 6236879, [id number] #### [facility] (DEFAULT) [address] [place] [address] MCHC (RBC) [Mass/Vol] 30 g/dL Normal 26-37 [facility] Comment on above: Performed By: #### 7 911934, 59926341, 5571095, 0527122725 #### [facility] (DEFAULT) [address] [place] [address] MCV (RBC) [Entitic vol] 92 fL Normal 81-100 [facility] Comment on above: Performed By: #### 7 038083, 54977269, 4495026, [id number] #### [facility] (DEFAULT) [address] [place] [address] Platelet 533 x10 High 138-427 [facility] Comment on above: Performed By: #### 7 678650, 27003722, 3900109, [id number] #### [facility] (DEFAULT) [address] [place] [address] 20339 Platelet mean volume (Bld) [Entitic vol] 8.8 fL Normal 6.3-10.2 [facility] Comment on above: Performed By: #### 7 035150, 53733544, 8879558, 0998985566 #### [facility] (DEFAULT) [address] [place] [address] RBC 2.67 x10 Low 3.70-5.30 [facility] Comment on above: Performed By: #### 7 332223, 74156853, 4644493, [id number] #### [facility] (DEFAULT) [address] [place] [address] WBC 7.5 x10 Normal 3.5-10.5 [facility] Comment on above: Performed By: #### 7 254736, 19767137, 4064302, 9364085872 #### [facility] (DEFAULT) [address] [place] [address] Standardon 08-06-2021 eGFR Non AA >60 Invalid Interpretation Code [facility] Comment on above: Performed By: #### 7 518604, 51244341, 8981912, [id number] #### [facility] (DEFAULT) [address] [place] [address] eGFR AA >60 Invalid Interpretation Code [facility] Comment on above: Result Comment: Triage Technician juanito Kidney disease could be indicated at eGFRs of less than 60 ml/min/1.73m2. Kidney Failure is indicated at less than 15 ml/min/1.73m2 Performed By: #### 7 135224, 90549441, 2235809, [id number] #### [facility] (DEFAULT) [address] [place] [address] Albumin [Mass/Vol] 1.6 g/dL Low 3.5-5.0 [facility] Comment on above: Performed By: #### 7 751092, 97590750, 7340291, [id number] #### [facility] (DEFAULT) [address] [place] [address] Albumin/Globulin [Mass ratio] 0.7 {ratio} Low 1.4-2.6 [facility] Comment on above: Performed By: #### 7 224031, 40018366, 0814027, 3500106860 #### [facility] (DEFAULT) [address] [place] [address] Alk Phos 52 IU/L Normal 32-91 [facility] Comment on above: Performed By: #### 7 092043, 75750032, 4820771, [id number] #### [facility] (DEFAULT) [address] [place] [address] 12803 ALT [Catalytic activity/Vol] 23.0 U/L Normal 14.0-54.0 [facility] Comment on above: Performed By: #### 7 212557, 30676466, 4697663, 9328957800 #### [facility] (DEFAULT) [address] [place] [address] 63871 Anion gap [Moles/Vol] 14.0 mmol/L Normal 5.0-19.0 [facility] Comment on above: Performed By: #### 7 092232, 09952244, 9722389, 1625958860 #### [facility] (DEFAULT) [address] [place] [address] 44049 AST [Catalytic activity/Vol] 27 U/L Normal 15-41 [facility] Comment on above: Performed By: #### 7 815674, 27535494, 6809084, [id number] #### [facility] (DEFAULT) [address] [place] [address] 06683 Bili Total 0.4 mg/dL Normal 0.3-1.2 [facility] Comment on above: Performed By: #### 7 523242, 14369511, 3919791, 1592096401 #### [facility] (DEFAULT) [address] [place] [address] 99671 Calcium [Mass/Vol] 6.1 mg/dL Low 8.9-10.3 [facility] Comment on above: Performed By: #### 7 529448, 11533474, 0551864, [id number] #### [facility] (DEFAULT) [address] [place] [address] 12194 Chloride [Moles/Vol] 108 mmol/L Normal 101-111 [facility] Comment on above: Performed By: #### 7 817779, 18812588, 2258568, 5833783870 #### [facility] (DEFAULT) [address] [place] [address] 25854 CO2 [Moles/Vol] 21 mmol/L Normal 21-32 [facility] Comment on above: Performed By: #### 7 359932, 10865490, 4276625, [id number] #### [facility] (DEFAULT) [address] [place] [address] 88808 Creatinine [Mass/Vol] 0.64 mg/dL Normal 0.60-1.30 [facility] Comment on above: Performed By: #### 7 508169, 70296160, 8192260, [id number] #### [facility] (DEFAULT) [address] [place] [address] 98926 Globulin (S) [Mass/Vol] 2.4 g/dL Normal 1.5-4.3 [facility] Comment on above: Performed By: #### 7 892025, 06861722, 9769348, [id number] #### [facility] (DEFAULT) [address] [place] [address] 82549 Glucose [Mass/Vol] 118.0 mg/dL Normal 74.0-118.0 [facility] Comment on above: Performed By: #### 7 084050, 45466236, 8818601, [id number] #### [facility] (DEFAULT) [address] [place] [address] 15799 Osmolality 277 mOsm/L Invalid Interpretation Code [facility] Comment on above: Performed By: #### 7 039287, 25430497, 1340711, [id number] #### [facility] (DEFAULT) [address] [place] [address] 18002 Potassium [Moles/Vol] 3.8 mmol/L Normal 3.6-5.1 [facility] Comment on above: Performed By: #### 7 900329, 17691855, 3929495, 1258610691 #### [facility] (DEFAULT) [address] [place] [address] 19594 Protein [Mass/Vol] 4.0 g/dL Low 6.5-8.1 [facility] Comment on above: Performed By: #### 7 087619, 13232680, 1030827, [id number] #### [facility] (DEFAULT) [address] [place] [address] 91874 Sodium [Moles/Vol] 139.0 mmol/L Normal 136.0-144.0 [facility] Comment on above: Performed By: #### 7 861241, 36938965, 6082219, [id number] #### [facility] (DEFAULT) [address] [place] [address] Urea nitrogen [Mass/Vol] 9 mg/dL Normal 8-26 [facility] Comment on above: Performed By: #### 7 [id number], [id number], [id number], [id number] #### [facility] (DEFAULT) [address] [place] [address] Urea nitrogen/Creatinin e [Mass ratio] 14.0 mg/mg Normal 4.6-16.2 [facility] Comment on above: Performed By: #### 7 [id number], [id number], [id number], [id number] #### [facility] (DEFAULT) [address] [place] [address] ED Note - Physicianon 2021 ED Note - Physician Patient: ASHVIN RENE Age: 65 years Sex: FEMALE : 1955 Associated Diagnoses: General medical; Anemia; Peripheral edema; GI bleed Author: EVERTON NEGRON Basic Information Time seen: Date & time 08/06/2021 17:19:00. History source: Patient, EMS. Arrival mode: Ambulance. 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 [...] -Pharynx is pink and dry NECK: -Supple (cile-fc-ozjve): non-tender. CARD: -Rate and rhythm: Regular -Edema: [...] was performed with patient's consent and nurse shared services and outsourcing manager Jessica in the room the entire [...] 08/06/2021 1 (more content not included)... Normal [facility] ED Note-Nursingon 08-06-2021 ED Note-Nursing patient did not want to come in. patient is from [place], patient has a history of hypotension and she takes midodrine regularly. she also took zofran. nurse states arms and legs are weeping. nurse states skin is yellow. patient has c diff. nurse at [facility] did a wrist bloodpressure and it was 90/44, ems did a blood pressure and it was 144/90. patient states jail is not giving me my blood pressure meds Normal [facility] Extra Pinkon 08-06-2021 Tube Collected Yes Invalid Interpretation Code [facility] Comment on above: Performed By: #### 7 [id number], [id number], [id number], [id number] #### [facility] (DEFAULT) [address] [place] [address] Lactic Acidon 08-06-2021 Lactic Acid 16.2 mg/dL Normal 4.5-19.8 [facility] Comment on above: Performed By: #### 7 887104, [id number], 0376344, [id number] #### [facility] (DEFAULT) [address] [place] [address] Lipaseon 08-06-2021 Lipase Level 20.0 IU/L Low 22.0-51.0 [facility] Comment on above: Performed By: #### 7 052497, [id number], 1270607, [id number] #### [facility] (DEFAULT) [address] [place] [address] Magnesiumon 08-06-2021 Magnesium [Mass/Vol] 0.92 mg/dL Low 1.80-2.50 [facility] Comment on above: Performed By: #### 7 070032, [id number], 9634043, [id number] #### [facility] (DEFAULT) [address] [place] [address] Morphologyon 08-06-2021 Aniso 1+ Normal [facility] Comment on above: Order Comment: Order added by Discern. Performed By: #### 7 004503, [id number], [id number], [id number] #### [facility] (DEFAULT) [address] [place] [address] Hypochrom 1+ Normal [facility] Comment on above: Order Comment: Order added by Discern. Performed By: #### 7 152736, [id number], 7657641, [id number] #### [facility] (DEFAULT) [address] [place] [address] Microcyte 1+ Normal [facility] Comment on above: Order Comment: Order added by Discern. Performed By: #### 7 523120, [id number], 9903829, [id number] #### [facility] (DEFAULT) [address] [place] [address] RBC morphology finding Nom (Bld) See Morphology Normal [facility] Comment on above: Order Comment: Order added by Discern. Performed By: #### 7 [id number], [id number], 4959955, [id number] #### [facility] (DEFAULT) [address] [place] [address] RBC.on 08-06-2021 RBC. # of Units: 2 RBC Indication: Symptom Anemia Additional Units?: No Date Needed: 1/24/22 Red Cell Status: RBC Ready Normal [facility] Comment on above: Performed By: #### 1 [id number], [id number], [id number], [id number] #### [facility] (DEFAULT) [address] [place] [address] SARS-CoV-2 (COVID-19) PCRon 08-06-2021 Employed in healthcare? No Invalid Interpretation Code [facility] Comment on above: Performed By: #### 1 [id number], [id number], [id number], [id number] #### [facility] (DEFAULT) [address] [place] [address] Group care resident? Yes Invalid Interpretation Code [facility] Comment on above: Performed By: #### 1 [id number], [id number], [id number], [id number] #### [facility] (DEFAULT) [address] [place] [address] In ICU? Unknown Invalid Interpretation Code [facility] Comment on above: Performed By: #### 1 [id number], 7606089, [id number], [id number] #### [facility] (DEFAULT) [address] [place] [address] status? Not Invalid Interpretation Code [facility] Comment on above: Performed By: #### 1 [id number], [id number], [id number], [id number] #### [facility] (DEFAULT) [address] [place] [address] SARS-CoV-2 (COVID-19) RNA JESSICA+probe Ql (Unsp spec) Detected Critically abnormal Not Detected [facility] Comment on above: Result Comment: Resu lts Called To MICAH Prince in ER By RR And Read Back For Confirmation On 08/06/2021 19:54:09 EST. Performed by PCR methodology. Performed By: #### 1 [id number], [id number], [id number], [id number] #### [facility] (DEFAULT) [address] [place] [address] SARS-CoV-2 (COVID-19) RNA JESSICA+probe Ql (Unsp spec) Unknown Invalid Interpretation Code [facility] Comment on above: Performed By: #### 1 [id number], [id number], [id number], [id number] #### [facility] (DEFAULT) [address] [place] [address] Symptomatic as defined by CDC? No Invalid Interpretation Code [facility] Comment on above: Performed By: #### 1 [id number], 5378931, 94299198, 3559566 #### [facility] (DEFAULT) [address] [place] [address] TnI HSon 08-06-2021 Troponin I High Sensitivity [...] Baseline Delta 1Hr <18ng/mL 50-60% >18ng/mL 20% ([place] [employer] Guidelines February 2018) Performed By: #### 7 355181, [id number], 8627029, [id number] #### [facility] (DEFAULT) [address] [place] [address] Troponin I High Sensitivity 17 pg/mL Critically [...] Baseline Delta 1Hr <18ng/mL 50-60% >18ng/mL 20% ([place] [employer] Guidelines February 2018) Performed By: #### 7 786863, [id number], 5514671, [id number] #### [facility] (DEFAULT) [address] [place] [address] XR Chest 1 View Frontalon XR Chest [...] Gamez DO 08/06/21 8:49 pm Technologist: RANDALL [facility] KNEE RIGHT 3 Son KNEE RIGHT 3 [facility] Department of Radiology [address] [place] [phone] Patient Name: ASHVIN RENE : 1955 [...] change Electronically signed: Tawana Andrade. Transcribed by: [email or web address], User Resident: Electronically Signed by: TAWANA ANDRADE @ 01/01/2021 08:57 PM Normal [facility] Comment on above: Order Comment: Evalu ate Basic Metabolic Panlon 12-08 Anion gap [Moles/Vol] 13 mmol/L Normal 9-[address] [facility] Comment on above: Performed By: #### B MP ####[address] [phone] Calcium [Mass/Vol] 7.1 mg/dL Low 8.5-10.2 [facility] Comment on above: Performed By: #### B MP ####[address] [phone] Chloride [Moles/Vol] 107 mmol/L High 97-[address] [facility] Comment on above: Performed By: #### B MP ####[address] [phone] CO2 [Moles/Vol] 18 mmol/L Low 22-[address] [facility] Comment on above: Performed By: #### B MP ####[address] [phone] Creatinine [Mass/Vol] 0.97 mg/dL High 0.58-0.[address] [facility] Comment on above: Performed By: #### B MP ####[address] [phone] eGFR- Amer. >60 Normal [facility] Comment on above: Performed By: #### B MP ####[place] [address] [place], [place] [phone] eGFR-All Other Races [address] [facility] Comment on above: Result Comment: eGFR [...] actual GFR. Performed By: #### B MP ####[address] [phone] Glucose [Mass/Vol] 79 mg/dL Normal 74-99 [facility] Comment on above: Result Comment: The [place] [employer] (ADA) provides guidance for cutoff [...] Standards of Medical Care in Diabetes 2016, [place] [employer]. Diabetes Care. 2016.39(Suppl 1). Performed By: #### B MP ####[facility] [place], [place] [phone] Potassium [Moles/Vol] 4.4 mmol/L Normal 3.7-5.[address] [facility] Comment on above: Performed By: #### B MP ####[facility] [place], [place] [phone] Sodium [Moles/Vol] 138 mmol/L Normal 136-144 [facility] Comment on above: Performed By: #### B MP ####[place] [id number] [place], [place] [phone] Urea nitrogen [Mass/Vol] 15 mg/dL Normal 7-[address] [facility] Comment on above: Performed By: #### B MP ####[address] [phone] Coronavirus 2019on SARS-CoV-2 (COVID-19) RNA JESSICA+probe Ql (Unsp spec) Nasopharyngeal Swab Normal [facility] Comment on above: Performed By: #### C OVID ####[address] [phone] SARS-CoV-2 (COVID-19) RNA JESSICA+probe Ql (Unsp spec) Negative for COVID19 (SARS CoV2) by RT-PCR or equivalent method. Normal Negative for COVID19 (SARS CoV2) by RT-PCR or equivalent method. [facility] Comment on above: Result Comment: This test was developed and its performance characteristics determined by [facility]'s [facility] [place]. This test has been authorized by FDA under an Emergency Use Authorization (EUA). This test has been validated in accordance with the FDA's Guidance Document Policy for Diagnostics Testing in Laboratories Certified to Perform High Complexity Testing under CLIA prior to Emergency use Authorization for Coronavirus Disease 2019 during the Public Health Emergency issued on September 11, 2019. Test performed by [facility], [facility] [place], [address] [place], [place] [address]. Performed By: #### C OVID ####[address] [phone] CBCon 12-07-2020 Absolute nRBC <0.01 Normal <0.[address] [facility] Comment on above: Performed By: #### C MP, CBC, PT ####[address] [phone] Erythrocyte distribution width (RBC) [Ratio] 15.1 % High 11.5-15.[address] [facility] Comment on above: Performed By: #### C MP, CBC, PT ####[place] [address] [address], [place] [phone] Hematocrit (Bld) [Volume fraction] 33.1 % Low 36.0-46.[address] [facility] Comment on above: Performed By: #### C MP, CBC, PT ####[place] [address] [address] [place] [phone] Hemoglobin (Bld) [Mass/Vol] 10.0 g/dL Low 11.5-15.[address] [facility] Comment on above: Performed By: #### C MP, CBC, PT ####[place] [address] [address] [place] [phone] MCH 31.9 pG Normal 26.0-34.[address] [facility] Comment on above: Performed By: #### C MP, CBC, PT ####[place] [address] [address] [place] [phone] MCHC (RBC) [Mass/Vol] 30.2 g/dL Low 30.5-36.[address] [facility] Comment on above: Performed By: #### C MP, CBC, PT ####[place] [address] [address] [place] [phone] MCV (RBC) [Entitic vol] 105.8 fL High 80.0-100.[address] [facility] Comment on above: Performed By: #### C MP, CBC, PT ####[place] [address] [address], [place] [phone] Platelet mean volume (Bld) [Entitic vol] 9.6 fL Normal 9.0-12.[address] [facility] Comment on above: Performed By: #### C MP, CBC, PT ####[place] [address] [address] [place] [phone] Platelets (Bld) [#/Vol] 256 10*3/uL Normal 150-[address] [facility] Comment on above: Performed By: #### C MP, CBC, PT ####[place] [address] [address], [place] [phone] RBC (Bld) [#/Vol] 3.13 10*6/uL Low 3.90-5.20 [facility] Comment on above: Performed By: #### C MP, CBC, PT ####[place] [address] [address], [place] [phone] WBC (Bld) [#/Vol] 5.83 10*3/uL Normal 3.70-11.00 [facility] Comment on above: Performed By: #### C MP, CBC, PT ####[address] [phone] Comp Metabolic Panelon 12-07 Albumin [Mass/Vol] 3.1 g/dL Low 3.9-4.9 [facility] Comment on above: Performed By: #### C MP, CBC, PT ####[address] [phone] ALP [Catalytic activity/Vol] 34 U/L Normal 34-[address] [facility] Comment on above: Performed By: #### C MP, CBC, PT ####[place] [address] [place], [place] [phone] ALT [Catalytic activity/Vol] 16 U/L Normal 7-[address] [facility] Comment on above: Performed By: #### C MP, CBC, PT ####[address] [place], [place] [phone] Anion gap [Moles/Vol] 8 mmol/L Low 9-[address] [facility] Comment on above: Performed By: #### C MP, CBC, PT ####[address] [place], [place] [phone] AST [Catalytic activity/Vol] 16 U/L Normal 13-[address] [facility] Comment on above: Performed By: #### C MP, CBC, PT ####[place] [address], [place] [phone] Bilirubin [Mass/Vol] 0.2 mg/dL Normal 0.2-1.[address] [facility] Comment on above: Performed By: #### C MP, CBC, PT ####[place] [address] [place] [phone] Calcium [Mass/Vol] 8.4 mg/dL Low 8.5-10.2 [facility] Comment on above: Performed By: #### C MP, CBC, PT ####[place] [address], [place] [phone] Chloride [Moles/Vol] 111 mmol/L High 97-[address] [facility] Comment on above: Performed By: #### C MP, CBC, PT ####[place] [address] [place] [phone] CO2 [Moles/Vol] 21 mmol/L Low 22-[address] [facility] Comment on above: Performed By: #### C MP, CBC, PT ####[place] [address], [place] [phone] Creatinine [Mass/Vol] 1.16 mg/dL High 0.58-0.[address] [facility] Comment on above: Performed By: #### C MP, CBC, PT ####[place] [address] [place] [phone] eGFR- Amer. 56 Normal [facility] Comment on above: Performed By: #### C MP, CBC, PT ####[place] [address], [place] [phone] eGFR-All Other Races [address] [facility] Comment on above: Result Comment: eGFR [...] Performed By: #### C MP, CBC, PT ####[facility] [place], [place] [phone] Glucose [Mass/Vol] 96 mg/dL Normal 74-99 [facility] Comment on above: Result Comment: The [place] Diabetes [employer] (ADA) provides guidance for cutoff [...] Standards of Medical Care in Diabetes 2016, [place] [employer]. Diabetes Care. 2016.39(Suppl 1). Performed By: #### C MP, CBC, PT ####[facility] [place], [place] [phone] Potassium [Moles/Vol] 4.7 mmol/L Normal 3.7-5.[address] [facility] Comment on above: Performed By: #### C MP, CBC, PT ####[address] [phone] Protein [Mass/Vol] 5.0 g/dL Low 6.3-8.0 [facility] Comment on above: Performed By: #### C MP, CBC, PT ####[facility] [place], [place] [phone] Sodium [Moles/Vol] 140 mmol/L Normal 136-144 [facility] Comment on above: Performed By: #### C MP, CBC, PT ####[facility] [place], [place] [phone] Urea nitrogen [Mass/Vol] 22 mg/dL High 7-[address] [facility] Comment on above: Performed By: #### C MP, CBC, PT ####[facility] [place], [place] [phone] Protimeon 12-07-2020 PT INR 1.2 Normal 0.9-1.[address] [facility] Comment on above: Result Comment: Jenny min K Antagonist (VKA) Therapeutic Range: INR 2 to 3 (Target INR of 2.5) Note: For patients treated with VKA drugs, such as warfarin, the [place] [employer] 2012 Guideline recommends [...] Chest 2012, 141:7S-47S Haile RA, et al. 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 Instructions/Restrictions Patient/Family Response Evaluation: Verbalizes understanding Follow [...] 12/06/2020 Noted Resolved Coronary artery disease of sh[place] ira artery of otilio*11/24/2020 S/P CABG (coronary artery bypass graft) [Z95.1] 11/24/2020 Pure hypercholesterolemia [E78.00] 11/24/2020 Type 2 diabetes mellitus without complication, *11/24/2020 Fatigue [R53.83] 11/24/2020 Encounter Status:Closed by COTY MORALES RN on 12/06/20 [facility] Mirella 11-28-2020 JEFFREY Telephone (DIOMEDES) -- ASHVNI RENE ([id number]) 1955 F Date Time Provider Department 11/28/20 [...] 11/29/2020 9:46 AM Signed Faxed orders to [phone] Kd Solitario 11/29/2020 12:22 PM Signed Patient called back and gave alternative fax # [phone] She would also like cath to be scheduled on 12/07. 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] Order(s):CARDIAC FISHER HOOP NET ORDER [3999161] Order #: [id number]: 1 INTERMEDIATE RAPID COVID [SQITCOVD] Order #: [id number] FUTURE COMP METABOLIC PANEL [SQCMP] Order #: [id number] FUTURE CBC [SQCBC] Order #: [id number] FUTURE LIPID PANEL BASIC [SQLIPB] Order #: [id number] FUTURE CK CREATINE KINASE [SQCK] Order #: [id number] FUTURE ECG COMPLETE [ECG01] Order #: [id number] FUTURE Prescriptions as of 11/28/2020 Sig: ACETAMINOPHEN [...] 11/28/2020 Noted Resolved Coronary artery disease of sh[place] ira artery of otilio*11/24/2020 S/P CABG (coronary artery bypass graft) [Z95.1] 11/24/2020 Pure hypercholesterolemia [E78.00] 11/24/2020 Type 2 diabetes mellitus without complication, *11/24/2020 Fatigue [R53.83] 11/24/2020 Encounter Status:Closed by NAY JOSEPH on 11/29/20 [facility] CNOVon 11-24-2020 CNOV Office Visit (CATHMN ) -- ASHVIN RENE ([id number]) 1955 F Date Time Provider Department 11/24/20 9:30 AM NAY JOSEPH During your visit today, we recorded the following information about you: Pulse Respiration Blood pressure Weight 91/minute 20/minute 108/63 64.3 kg Height 1.6 m A. Nay Joseph MD 11/29/2020 7:54 AM Signed [facility] [place] [facility] Department of Cardiovascular Medicine SECTION OF INTERVENTIONAL CARDIOLOGY OUTPATIENT VISIT DATE November 23, 2020 OUTPATIENT VISIT TYPE NEW PRIMARY CARE PHYSICIAN: Tushar Solano Jr, DO (DrBerhane) [address] [phone] REFERRING PHYSICIAN: Waqas Mabry MD [address] [facility] [address] CHIEF COMPLAINT: No chief complaint on file. [...] resolved after CABG) 2016 CVA and (?) [place] 05/24/16 Echo ? Normal left ventricular end-diastolic [...] Lexiscan injection (more content not included)... Normal [facility] CNCOon 11-22-2020 CNCO Letter Text Normal [facility] CNPNon 11-22-2020 CNPN Telephone (CATHMN) -- ASHVIN RENE ([id number]) 1955 F Date Time Provider Department 11/22/20 NAY JOSEPH During your visit today, we recorded the following information about you: Kd Solitario 11/22/2020 3:54 PM Signed Urgent records request faxed to [phone] Allergies As of Date: 11/22/2020 (Not on File) Date Reviewed: Never Reviewed Reason for Visit: Request Outside Medical Records [9789] Problem List As Of Date: 11/22/2020 (None) Encounter Status:Closed by KD SOLITARIO on 11/22/20 [facility] 11-09-2020 CNPN Telephone (REFPHY) -- ASHVIN RENE ([id number]) 1955 F Date Time Provider Department 11/09/20 NO ONE (HISTORICAL) REFPHY During your visit today, we recorded the following information about you: Ashvin Quezada [facility] 11/09/2020 10:11 AM Signed Patient: Ashvinanel Rene Date of : 1955 Patient phone number: [phone] Referring Provider for the encounter: Dr Waqas Mabry Requesting Provider: Cardiology Reason for requesting visit (RFV/signs and symptoms/diagnosis): 2nd Opinion - Severe CAD Person calling: caregiver: ERIC Return call to: self Medical Records/Insurance Card scanned into Floop: Yes Comments: N/A Allergies As of Date: 11/09/2020 (Not on File) Date Reviewed: Never Reviewed Reason for Visit: External Referrals/resources [929] Problem List As Of Date: 11/09/2020 (None) Encounter Status:Closed by ASHVIN DIAZ on 11/09/[address] [facility] XA-CARDIAC CATHETERIZATION I MPORTon 10-25-2020 XA-CARDIAC CATHETERIZATION IMPORT Images were obtained outside of [facility] [id number] Normal [facility] Vital Signs Date Time Vital Sign Value Performing Clinician Facility 10-15-2023 14:00-0400 Heart rate 80 /min Hazem Malas DO Work Phone: [facility] 10-15-2023 14:00-0400 Respiratory rate 15 /min Hazem Malas DO Work Phone: [facility] 10-15-2023 14:00-0400 SaO2% (BldA) [Mass fraction] 95 % Hazem Malas DO Work Phone: [facility] 10-15-2023 12:15-0400 Body temperature 98.6 [degF] Hazem Malas DO Work Phone: [facility] 10-15-2023 12:15-0400 Diastolic blood pressure 78 mm[Hg] Hazem Malas DO Work Phone: [facility] 10-15-2023 12:15-0400 Systolic blood pressure 121 mm[Hg] Hazem Malas DO Work Phone: [facility] [employer] 10-14-2023 05:00-0400 Body mass index (BMI) [Ratio] 27.66 kg/m2 Hazem Malas DO Work Phone: [facility] 10-14-2023 05:00-0400 Body weight 68.6 kg Hazem Malas DO Work Phone: [facility] 10-13-2023 11:21-0400 Body height 157.5 cm Hazem Malas DO Work Phone: [facility] 08-21-2023 14:09-0500 Body temperature 97.9 [degF] Dwain Mills DPM Work Phone: [facility] 08-21-2023 14:09-0500 Diastolic blood pressure 62 mm[Hg] Dwain Mills DPM Work Phone: [facility] 08-21-2023 14:09-0500 Heart rate 84 /min Dwain Mills DPM Work Phone: [facility] 08-21-2023 14:09-0500 Systolic blood pressure 145 mm[Hg] Dwain Mills DPM Work Phone: [facility] 08-06-2023 16:00-0500 Diastolic blood pressure 65 mm[Hg] [facility] 08-06-2023 16:00-0500 Heart rate 80 /min [facility] 08-06-2023 16:00-0500 Respiratory rate 16 /min [facility] 08-06-2023 16:00-0500 SaO2% (BldA) [Mass fraction] 100 % [facility] [facility] 08[facility] 16:00-0500 Systolic blood pressure 107 mm[Hg] [facility] 08-06-2023 12:48-0500 Inhaled oxygen flow rate 3 L/min [facility] 08-06-2023 11:08-0500 Body height 157.48 cm [facility] 08-06-2023 11:08-0500 Body weight 63.04 kg [facility] 08-04-2023 10:45-0500 Body height 160.66 cm Jolie De Luna Other [facility] [employer] Other 08-04-2023 10:45-0500 Body mass index (BMI) [Ratio] 24.43 kg/m2 Jolie De Luna Other [employer] [facility] [employer] Other 08-04-2023 10:45-0500 Body temperature 97.8 [degF] Jolie De Luna Other [employer] [facility] [employer] Other 08-04-2023 10:45-0500 Body weight 63.05 kg Jolie De Luna Other [employer] Other 08-04-2023 10:45-0500 Diastolic blood pressure 64 mm[Hg] Jolie De Luna Other [employer] Other 08-04-2023 10:45-0500 SaO2% (BldA) [Mass fraction] 98 % Jolie De Luna Other [employer] Other 08-04-2023 10:45-0500 Systolic blood pressure 110 mm[Hg] Jolie De Luna Other [employer] Other 06-25-2023 11:16-0500 Body height 157.5 cm Norman Braga MD Work Phone: [employer] 06-25-2023 11:16-0500 Body mass index (BMI) [Ratio] 25.79 kg/m2 Norman Braga MD Work Phone: [employer] 06-25-2023 11:16-0500 Body temperature 98.2 [degF] Norman Braga MD Work Phone: [employer] 06-25-2023 11:16-0500 Body weight 63.96 kg Norman Braga MD Work Phone: [employer] 05-20-2022 11:05-0500 Body height 160.66 cm Virginia Marti Other [employer] Other 05-20-2022 11:05-0500 Body mass index (BMI) [Ratio] 21.09 kg/m2 Virginia Marti Other [employer] Other 05-20-2022 11:05-0500 Body temperature 97.3 [degF] Virginia Marti Other [employer] Other 05-20-2022 11:05-0500 Body weight 54.43 kg Virginia Marti Other [employer] Other 05-20-2022 11:05-0500 Diastolic blood pressure 66 mm[Hg] Virginia Marti Other [employer] Other 05-20-2022 11:05-0500 Respiratory rate 18 /min Virginia Marti Other [employer] Other 05-20-2022 11:05-0500 SaO2% (BldA) [Mass fraction] 100 % Virginia Marti Other [employer] Other 05-20-2022 11:05-0500 Systolic blood pressure 112 mm[Hg] Virginia Marti Other [employer] Other 04-12-2021 15:45-0400 Body height 160.66 cm Antonio Julio Other [employer] Other 04-12-2021 15:45-0400 Body mass index (BMI) [Ratio] 25.3 kg/m2 Antonio Julio Other [employer] Other 04-12-2021 15:45-0400 Body weight 65.32 kg Antonio Julio Other [employer] Other 09-09-2019 10:00-0500 BP Diastolic 80 mm[Hg] [facility] 09-09-2019 10:00-0500 BP Systolic 138 mm[Hg] [facility] 09-09-2019 10:00-0500 Pulse (Heart Rate) 80 /min [facility] 09-09-2019 10:00-0500 Pulse Oximetry 96 % [facility] 09-09-2019 10:00-0500 Respiratory Rate 16 /min [facility] 09-09-2019 08:20-0500 BMI (Body Mass Index) 25 kg/m2 [facility] 09-09-2019 08:20-0500 Body weight 63.95 kg [facility] 09-09-2019 08:20-0500 Height 160.02 cm [facility] 09-09-2019 07:10-0500 Body Temperature 97.9 [degF] [facility] 08-12-2019 09:55-0500 BP Diastolic 73 mm[Hg] [facility] 08-12-2019 09:55-0500 BP Systolic 132 mm[Hg] [facility] 08-12-2019 09:55-0500 Pulse (Heart Rate) 86 /min [facility] 08-12-2019 09:55-0500 Pulse Oximetry 97 % [facility] 08-12-2019 09:55-0500 Respiratory Rate 16 /min [facility] 08-12-2019 08:47-0500 BMI (Body Mass Index) 25.2 kg/m2 [facility] 08-12-2019 08:47-0500 Body weight 63.5 kg [facility] 08-12-2019 08:47-0500 Height 158.75 cm [facility] 08-12-2019 07:27-0500 Body Temperature 98.8 [degF] [facility] Encounters Encounter Date Encounter Type Care Provider Facility Start: 10-23-2023 End: 10-23-2023 ambulatory MARIAMA INGRAM [facility] Start: 10-13-2023 ambulatory TUSHAR SOLANO [facility] Start: 10-13-2023 End: 10-15-2023 Evaluation and management of inpatient [facility] Start: 10-12-2023 End: 10-15-2023 Evaluation and management of inpatient Jonathan Pizarro DO Work Phone: [facility] Comment on above: Decompensated heart failure (CMS-HCC) (Primary Dx); NSTEMI (non-ST elevated myocardial infarction) (CMS-HCC) Start: 10-12-2023 Documentation procedure Jonathan Pizarro DO Work Phone: [facility] Assistant Superintendent Sign In Start: 10-06-2023 End: 10-07-2023 Orders Only Cheikh Rodrigez [facility] Comment on above: 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) Start: 08-22-2023 [facility] on above: Loly Start: 08-21-2023 End: 08-21-2023 ambulatory DWAIN MILLS Not Available Start: 08-21-2023 Bamboo flowsheet Dwain moore DPM Work Phone: [facility] Start: 08-21-2023 Bamboo flowsheet Dwain moore DPM Work Phone: [facility] Start: 08-21-2023 End: 08-21-2023 Office outpatient visit 15 minutes Dwain Mills DPM Work Phone: [facility] Comment on above: 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); Gangrene (CMS/HCC); Pain in toe of right foot; Arteriosclerosis of arteries of extremities (CMS/HCC) Start: 08-07-2023 End: 08-07-2023 ambulatory DWAIN MILLS Not Available Start: 08-06-2023 End: 08-06-2023 ambulatory Tushar Solano Facility:[facility] Start: 08-06-2023 Non-patient / Non-visit [facility] Work Phone: Start: 08-04-2023 End: 08-04-2023 ambulatory Jolie De Luna Other [employer] Other Start: 08-04-2023 [facility] visit new patient Jolie harkins [facility] Start: 07-24-2023 End: 07-24-2023 ambulatory DWAIN MILLS Not Available Start: 06-25-2023 ambulatory NORMAN BRAGA [facility] Start: 06-25-2023 End: 06-25-2023 Office outpatient new 45 minutes Norman Braga MD Work Phone: [facility] Comment on above: Left knee pain, unsp ecified chronicity (Primary Dx) Start: 06-25-2023 End: 06-25-2023 Subsequent hospital visit by physician Norman Braga MD Work Phone: [facility] Start: 10-15-2022 End: 10-16-[address] TUSHAR SOLANO Facility:[facility] Start: 07-16-2022 End: 07-17-[address] TUSHAR SOLANO Facility:[facility] Start: 06-14-2022 End: 06-15-[address] TUSHAR SOLANO Facility:[facility] Start: 05-20-2022 Office outpatient vi sit 15 minutes Virginia Marti [facility] Start: 05-20-2022 End: 05-20-2022 ambulatory JR Tushar Solano Work Phone: [facility] Work Phone: Start: 05-20-2022 End: 05-20-2022 Patient encounter procedure JR Tushar Solano Work Phone: [facility] Start: 06-11-2021 End: 06-11-2021 ambulatory Antonio Kim Other [employer] Other Start: 06-11-2021 Telephone encounter Antonio Cardenas ck [facility] Start: 04-12-2021 Office outpatient ne w 45 minutes Antonio Kim [facility] Start: 11-09-2020 End: 11-09-2020 Telephone encounter No One (Historical) Referring Physician Comment on above: External Referrals/r esources Start: 09-09-2019 End: 09-09-2019 Admission to day surgery [facility] Start: 08-12-2019 End: 08-12-2019 Admission to day surgery [facility] Procedures Date Procedure Procedure Detail Performing Clinician Start: 10-23-2023 Follow-up visit Follow-up MARIAMA INGRAM Start: 10-15-2023 Assay of magnesium Nikolas Anthonychar WAREHOUSE LOGISTICS MANAGER-AGRICULTURAL CHEMICALS INSPECTOR Work Phone: Start: 10-15-2023 Radiologic exam chest single view Kallie Roman MD Work Phone: Start: 10-15-2023 Basic metabolic panel calcium total Hazem Malas DO Work Phone: Start: 10-14-2023 Calcium ionized Parul Holder Jeb WAREHOUSE LOGISTICS MANAGER-AGRICULTURAL CHEMICALS INSPECTOR Work Phone: Start: 10-14-2023 Lipid panel Kristyn Avila MD Work Phone: Start: 10-14-2023 Calcium ionized Parul Holder Jeb WAREHOUSE LOGISTICS MANAGER-AGRICULTURAL CHEMICALS INSPECTOR Work Phone: Start: 10-14-2023 Cardiac catheterization Obdulia Grove MD Work Phone: Start: 10-14-2023 Basic metabolic panel calcium total Parul Mcdowellfern WAREHOUSE LOGISTICS MANAGER-AGRICULTURAL CHEMICALS INSPECTOR Work Phone: Start: 10-14-2023 Ecg routine ecg w/least 12 lds trcg only w/o i&r Parul Holder Jeb WAREHOUSE LOGISTICS MANAGER-AGRICULTURAL CHEMICALS INSPECTOR Work Phone: Start: 10-13-2023 Calcium ionized Parul R Jeb WAREHOUSE LOGISTICS MANAGER-AGRICULTURAL CHEMICALS INSPECTOR Work Phone: Start: 10-13-2023 Heparin assay Parul Holder Jeb WAREHOUSE LOGISTICS MANAGER-AGRICULTURAL CHEMICALS INSPECTOR Work Phone: Start: 10-13-2023 Calcium ionized Hazem Malas DO Work Phone: Start: 10-13-2023 Echo tthrc r-t 2d w/wom-mode compl spec&colr d Parul Holder Jeb WAREHOUSE LOGISTICS MANAGER-AGRICULTURAL CHEMICALS INSPECTOR Work Phone: Start: 10-13-2023 Potassium serum plasma/whole blood Hazem Malas DO Work Phone: Start: 10-13-2023 Basic metabolic panel calcium total Parul Russ WAREHOUSE LOGISTICS MANAGER-AGRICULTURAL CHEMICALS INSPECTOR Work Phone: Start: 10-13-2023 Basic metabolic panel calcium total Parul Russ WAREHOUSE LOGISTICS MANAGER-AGRICULTURAL CHEMICALS INSPECTOR Work Phone: Start: 10-13-2023 Ecg routine ecg w/least 12 lds trcg only w/o i&r Parul Hassann WAREHOUSE LOGISTICS MANAGER-AGRICULTURAL CHEMICALS INSPECTOR Work Phone: Start: 10-12-2023 Gluc bld gluc [...] Td Vaccines (2 - Td or Tdap) [facility] Start: 05-20-2032 Tetanus vaccination T[facility] Start: 05-19-2024 Adult BMI Screening Adult BMI Screen ing [facility] Start: 05-19-2024 Tobacco Screening Tobacco Screening [facility] Start: 11-13-2023 End: 11-13-2023 Patient encounter procedure 11/13/2023 2:30 PM EDT Office Visit [facility] [address] [place] [address] Bernice Davis MD [address] [place] [address] [facility] Start: 10-16-2023 End: 10-16-2023 Patient encounter procedure 10/16/2023 1:30 PM EDT Office Visit [facility] [address] [facility] [address] [place] [address] Genet Small DO [address] [facility] [address] [place] [id number] [facility] Start: 09-09-2023 End: 09-09-2023 Patient encounter procedure 09/09/2023 10:15 AM EST Office Visit [facility] [address] [place] [id number] Dwain Mills, DPM [address] [place] [address] [facility] Start: 08-21-2023 End: 08-21-2023 Patient encounter procedure 08/21/2023 2:00 PM EST Office Visit [facility] [address] [place] [address] Dwain Mills, DPM [address] [place] [address] Arrived [facility] Comment on above: Arrived Start: 08-06-2023 [facility] Start: 03-14-2023 Influenza vaccination A [facility] Start: 2018 Fall Risk Screening Fall Risk Screen ing [facility] Start: 2018 Pneumococcal vaccination PNEUM OCOCCAL VACCINE SERIES (2 - PCV) [facility] Start: 11-20-2003 Administration of varicella zoster vaccine Zoster (Shingles) Vaccine (1 of 2) [facility] Start: 11-20-2003 Zoster vaccine hzv l pool for subcutaneous use ZOSTER (SHINGLES) VACCINE (1 of 2) [facility] Start: 1998 Screening for malign ant neoplasm of colon COLORECTAL CANCER SCREENING DISCUSSION [facility] Start: 1993 Lipid panel LIPID SCREENING [facility] Start: 1993 Screening for malign ant neoplasm of breast MAMMOGRAM SCREENING DISCUSSION [facility] Start: 1974 Screening for malign ant neoplasm of cervix CERVICAL CANCER SCREENING DISCUSSION [facility] Start: 1972 Third diphtheria, te tanus and acellular pertussis (DTaP) vaccination TDAP (ADULT) [facility] Start: 11-20-1971 Adult BMI Follow Up Plan Adult BMI Follow Up Plan [facility] Start: 1965 Depression Screening Depression Scre ening [facility] Start: 05-22-1954 COVID-19 VACCINE (#1) COVID-19 VACCI NE (#1) [facility] Start: 1953 Hepatitis C screening HEPATITI S C VIRUS SCREENING [facility] Start: 1953 Medicare Annual Well ness Visit Medicare Annual Wellness Visit [facility] Start: 1955 Screening for osteoporosis DEXA SCAN DISCUSSION [facility] Start: 1953 Thyroid stimulating hormone measurement TSH [facility] Patient Education Atherectomy - Angioplasty of a Noncoronary Vessel Arteriogram (DC) [facility] Work Phone: Patient referral [facility] Radi[facility] for bone length studies XR BONE LENGTH STUDY Imaging Routine Left knee pain, unspecified chronicity 06/25/2023 10:28 AM [facility] Work Phone: XR Knee - left 4 Views XR KNEE L EFT 4+ VIEWS Imaging Routine Left knee pain, unspecified chronicity 06/25/2023 10:28 AM [facility] Immunizations Immunization Date Immunization Notes Care Provider Joe silva 05-20-2022 tetanus and diphther ia toxoids, adsorbed, preservative free, for adult use (5 Lf of tetanus toxoid and 2 Lf of diphtheria toxoid) Virginia Marti Other [facility] 05-21-2018 Seasonal trivalent influenza vaccine, adjuvanted, preservative free Cheikh Rodrigez CMA [facility] 05-21-2018 influenza virus vaccine, unspecified formulation Norman Braga MD Work Phone: [facility] 09-12-2014 pneumococcal polysaccharide vaccine, 23 valent Cheikh Rain [facility] NEGATED: Highlighted row has not occurred!02-16-2023 pneumococcal conjugate vaccine, 13 valent Cheikh Rain [facility] Payers Date Payer Category Payer Self-pay [id number] 2022 Medicare [id number] 2020 Unknown [employer] [id number] 2020-Present Indemnity [id number] 2018 Medicare MEDICARE MEDICAR E A AND B [id number] 2018-Present [place] Medicare [id number] 1959 Medicare [id number] 1959 Unknown [id number] 1959 Unknown [id number] 1953 Unknown [id number] 1953 Unknown [id number] 1953 Unknown [id number] [id number] 1953 Unknown [id number] [id number] 1953 Unknown [id number] [id number] 1953 Unknown [id number] [id number] 9 1953 Unknown [id number] [id number] 9 1953 Unknown [id number] 9 1953 Unknown [id number] [id number] 6 1953 Unknown [id number] [id number] 6 1953 Unknown [id number] [id number] 6 1953 Unknown [id number] [id number] 6 Unknown [id number] Unknown [id number] Unknown [id number] Social History Date Type Detail Facility Start: 06-18-2016 End: 09-09-2019 Tobacco smoking status NHIS Never smoked tobacco (finding) [facility] Start: 1955 Sex Assigned At Female F [facility] Start: 1955 Sex Assigned At [facility] Start: 08-24-2020 End: 06-25-2023 Sex Assigned At [facility] [employer] Other Start: 06-18-2016 End: 06-25-2023 Tobacco use and exposure Smokeless tobacco non-user [facility] Start: 08-24-2020 End: 06-25-2023 History of Social function [facility] Start: 08-07-2023 End: 08-21-2023 Alcohol intake Lifetime non-drinker (finding) [facility] Start: 05-19-2023 End: 10-15-2023 Alcohol intake Current non-drinker of alcohol (finding) [employer] [facility] Unknown [employer] Has the electric, [employer] s, oil, or water company threatened to shut off services in your home in past 12Mo No [employer] How often to you hav e a drink containing alcohol? Never [employer] Medical Equipment Procedure Code Equipment Code Equipment Origin al Text Equipment Identifier Dates Phacoemulsification of cataract with intraocular lens implantation [id number] FDA Start: 08-12-2019 Phacoemulsification of cataract with intraocular lens implantation Posterior-chamber intraocular lens, pseudophakic [id number] FDA Start: 09-09-2019 Loop Recorder [facility] - [id number] Start: 05-24-2016 System Cor Stnt 3.0mm X 12mm 145cm [employer] Harry - [id number] FDA Start: 02-15-2023 Goals Date Patient Goal Desired Activity /State Clinical Notes 11-09-2020 to 10-15-2023 Plan of Care - David Florez RN - 10/15/2023 2:20 PM EDTPlan of Care - David Florez RN - 10/15/2023 2:20 PM EDTPlan of Care - Sae Santiago RN - 10/14/2023 9:26 PM EDTDischarge Instructions Note Date & Type Note Facility 10-15-2023 Plan of care note Problem: Pain Goal: Patient goal is pain score less than 4, able to rest, and participant in treatment plan as appropriate Description: INTERVENTIONS: 1. Encourage patient or legal financial representative to report early pain and ask [...] per policy 9. Teach patient or legal financial representative interventions for comforting Outcome: Progressing Note: [...] at the bedside 7. Instruct patient/ patient financial representative about use of safety devices 8. Include patient/ patient financial representative in decisions related to safety Outcome: [...] hygiene technique 7. Identify and instruct patient/patient financial representative in use of appropriate isolation precautions for identified infection/symptoms 8. Provide and discuss with patient/patient financial representative on educational MDRO sheet 9. Encourage and monitor nutritional status daily and consult conveyor maintenance mechanic if indicated 10. Implement neutropenic guidelines as needed 11. Review exposure to history of communicable disease and recent travel history on admission 12. Encourage annual influenza vaccine 13. Encourage pneumonia vaccine Outcome: Progressing Note: Evaluation of progress towards goal: Patient remains free from infection due to hospitalization. Patient remains afebrile at this time. Problem: Knowledge Deficit Goal: Patient/patient financial representative demonstrates understanding of disease process, treatment plan, medications, and discharge instructions Description: INTERVENTIONS 1. Complete learning assessment and assess knowledge base 2. Provide teaching at level of understanding 3. Provide teaching via preferred learning method(s) Outcome: Progressing Note: Evaluation of progress towards goal: Patient demonstrates understanding of plan of care and treatment plan at this time. [facility] 10-15-2023 Miscellaneous Notes Problem: Pain Goal: Patient goal is pain score less than 4, able to rest, and participant in treatment plan as appropriate Description: INTERVENTIONS: 1. Encourage patient or legal financial representative to report early pain and ask [...] per policy 9. Teach patient or legal financial representative interventions for comforting Outcome: Progressing Note: [...] at the bedside 7. Instruct patient/ patient financial representative about use of safety devices 8. Include patient/ patient financial representative in decisions related to safety Outcome: [...] hygiene technique 7. Identify and instruct patient/patient financial representative in use of appropriate isolation precautions for identified infection/symptoms 8. Provide and discuss with patient/patient financial representative on educational MDRO sheet 9. Encourage and monitor nutritional status daily and consult conveyor maintenance mechanic if indicated 10. Implement neutropenic guidelines as needed 11. Review exposure to history of communicable disease and recent travel history on admission 12. Encourage annual influenza vaccine 13. Encourage pneumonia vaccine Outcome: Progressing Note: Evaluation of progress towards goal: Patient remains free from infection due to hospitalization. Patient remains afebrile at this time. Problem: Knowledge Deficit Goal: Patient/patient financial representative demonstrates understanding of disease process, treatment [...] Description: INTERVENTIONS: 1. Encourage patient or legal financial representative to report early pain and ask [...] per policy 9. Teach patient or legal financial representative interventions for comforting Outcome: Progressing Note: [...] at the bedside 7. Instruct patient/ patient financial representative about use of safety devices 8. Include patient/ patient financial representative in decisions related to safety Outcome: [...] hygiene technique 7. Identify and instruct patient/patient financial representative in use of appropriate isolation precautions for identified infection/symptoms 8. Provide and discuss with patient/patient financial representative on educational MDRO sheet 9. Encourage and monitor nutritional status daily and consult conveyor maintenance mechanic if indicated 10. Implement neutropenic guidelines as needed 11. Review exposure to history of communicable disease and recent travel history on admission 12. Encourage annual influenza vaccine 13. Encourage pneumonia vaccine Outcome: Progressing Note: Evaluation of progress towards goal: Pt afebrile and no outward signs of infection during shift. Problem: Knowledge Deficit Goal: Patient/patient financial representative demonstrates understanding of disease process, treatment [...] develop effective communication strategies 4. Include patient/patient financial representative in decisions related to communication Outcome: [...] Collaborate with ancillary departments 14. Include patient/patient financial representative in decisions related to anxiety Outcome: [...] providing care 6. Collaborate with pastoral/spiritual care, secondary social studies teacher, mental health counselor as needed. 7. Instruct patient on diversional activities such as physical activity, distraction, and deep breathing exercises to assist with coping 8. Involve patient's financial representative in care Outcome: Progressing Note: Evaluation [...] supplement as ordered 13. Collaborate with clinical conveyor maintenance mechanic 14. Include patient/ patient's financial representative in decisions related to nutrition Outcome: [...] be free from fall Description: Interventions: 1. [place] to environment 2. Hourly rounds addressing the [...] non-skid footwear 11. Teach patient and patient financial representative to maintain environment for safety and [...] (cane, walker) within reach 19. Request patient financial representative bring adaptive equipment/mobility aids from home or obtain and provide as needed 20. Consult pharmacy regarding effects of med's affecting mobility, cognition, and alternatives 21. Obtain physician order for PT if risk factors associated with mobility are present 22. Obtain physician order for OT as appropriate 23. Utilize diversional activities 24. Educate patient and patient financial representative how to maintain a safe environment during visitation times (notify nurse prior to leaving bedside) 25. Consider appropriateness of medical or non-medical coordinator pesticide use 26. Set up voiding schedule as appropriate (every 2 hours) Outcome: Progressing Note: Evaluation of progress towards goal: No signs of falls during shift. Problem: Pain Goal: Patient goal is pain score less than 4, able to rest, and participant in treatment plan as appropriate Description: INTERVENTIONS: 1. Encourage patient or legal financial representative to report early pain and ask [...] per policy 9. Teach patient or legal financial representative interventions for comforting Outcome: Progressing Note: [...] at the bedside 7. Instruct patient/ patient financial representative about use of safety devices 8. Include patient/ patient financial representative in decisions related to safety Outcome: [...] hygiene technique 7. Identify and instruct patient/patient financial representative in use of appropriate isolation precautions for identified infection/symptoms 8. Provide and discuss with patient/patient financial representative on educational MDRO sheet 9. Encourage and monitor nutritional status daily and consult conveyor maintenance mechanic if indicated 10. Implement neutropenic guidelines as needed 11. Review exposure to history of communicable disease and recent travel history on admission 12. Encourage annual influenza vaccine 13. Encourage pneumonia vaccine Outcome: Progressing Note: Evaluation of progress towards goal: Pt is afebrile at this time. Problem: Knowledge Deficit Goal: Patient/patient financial representative demonstrates understanding of disease process, treatment [...] Score of =/> [address] [facility] Assessment Goal: Patient should be free from fall Description: Interventions: 1. [place] to environment 2. Hourly rounds addressing the [...] non-skid footwear 11. Teach patient and patient financial representative to maintain environment for safety and [...] (cane, walker) within reach 19. Request patient financial representative bring adaptive equipment/mobility aids from home or obtain and provide as needed 20. Consult pharmacy regarding effects of med's affecting mobility, cognition, and alternatives 21. Obtain physician order for PT if risk factors associated with mobility are present 22. Obtain physician order for OT as appropriate 23. Utilize diversional activities 24. Educate patient and patient financial representative how to maintain a safe environment during visitation times (notify nurse prior to leaving bedside) 25. Consider appropriateness of medical or non-medical coordinator pesticide use 26. Set up voiding schedule as appropriate (every 2 hours) Outcome: Progressing Note: Evaluation of progress towards goal: Pt is free from falls at this time. Pre Procedure Evaluation: H&P was reviewed and the patient was examined. No change has occurred in the patient's condition since the H&P was completed. 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 Code Clerk Visit: ACS > 24hrs Chest Pain Symptom [...] Description: INTERVENTIONS: 1. Encourage patient or legal financial representative to report early pain and ask [...] per policy 9. Teach patient or legal financial representative interventions for comforting Outcome: Progressing Note: [...] at the bedside 7. Instruct patient/ patient financial representative about use of safety devices 8. Include patient/ patient financial representative in decisions related to safety Outcome: [...] hygiene technique 7. Identify and instruct patient/patient financial representative in use of appropriate isolation precautions for identified infection/symptoms 8. Provide and discuss with patient/patient financial representative on educational MDRO sheet 9. Encourage and monitor nutritional status daily and consult conveyor maintenance mechanic if indicated 10. Implement neutropenic guidelines as needed 11. Review exposure to history of communicable disease and recent travel history on admission 12. Encourage annual influenza vaccine 13. Encourage pneumonia vaccine Outcome: Progressing Note: Evaluation of progress towards goal: Patient afebrile and WBC of 5.3. Will continue to monitor for signs of infection Problem: Knowledge Deficit Goal: Patient/patient financial representative demonstrates understanding of disease process, treatment [...] develop effective communication strategies 4. Include patient/patient financial representative in decisions related to communication Outcome: [...] supplement as ordered 13. Collaborate with clinical conveyor maintenance mechanic 14. Include patient/ patient's financial representative in decisions related to nutrition Outcome: Progressing Note: Evaluation of progress towards goal: Collaborating with interdisciplinary team to ensure adequate nutritional intake. Problem: Moderate - High Risk Fall Score Description: Beal Fall Score of =/> 25 or indicated by [facility] Assessment Goal: Patient should be free from fall Description: Interventions: 1. Ford to environment 2. Hourly rounds addressing the [...] non-skid footwear 11. Teach patient and patient financial representative to maintain environment for safety and [...] (cane, walker) within reach 19. Request patient financial representative bring adaptive equipment/mobility aids from home or obtain and provide as needed 20. Consult pharmacy regarding effects of med's affecting mobility, cognition, and alternatives 21. Obtain physician order for PT if risk factors associated with mobility are present 22. Obtain physician order for OT as appropriate 23. Utilize diversional activities 24. Educate patient and patient financial representative how to maintain a safe environment during visitation times (notify nurse prior to leaving bedside) 25. Consider appropriateness of medical or non-medical coordinator pesticide use 26. Set up voiding schedule as appropriate [...] Description: INTERVENTIONS: 1. Encourage patient or legal financial representative to report early pain and ask [...] per policy 9. Teach patient or legal financial representative interventions for comforting Outcome: Progressing Note: [...] at the bedside 7. Instruct patient/ patient financial representative about use of safety devices 8. Include patient/ patient financial representative in decisions related to safety Outcome: [...] hygiene technique 7. Identify and instruct patient/patient financial representative in use of appropriate isolation precautions for identified infection/symptoms 8. Provide and discuss with patient/patient financial representative on educational MDRO sheet 9. Encourage and monitor nutritional status daily and consult conveyor maintenance mechanic if indicated 10. Implement neutropenic guidelines as needed 11. Review exposure to history of communicable disease and recent travel history on admission 12. Encourage annual influenza vaccine 13. Encourage pneumonia vaccine Outcome: Progressing Note: Evaluation of progress towards goal: Pt is afebrile at this time. Problem: Knowledge Deficit Goal: Patient/patient financial representative demonstrates understanding of disease process, treatment [...] Score of =/> [address] [facility] Assessment Goal: Patient should be free from fall Description: Interventions: 1. [place] to environment 2. Hourly rounds addressing the [...] non-skid footwear 11. Teach patient and patient financial representative to maintain environment for safety and [...] (cane, walker) within reach 19. Request patient financial representative bring adaptive equipment/mobility aids from home or obtain and provide as needed 20. Consult pharmacy regarding effects of med's affecting mobility, cognition, and alternatives 21. Obtain physician order for PT if risk factors associated with mobility are present 22. Obtain physician order for OT as appropriate 23. Utilize diversional activities 24. Educate patient and patient financial representative how to maintain a safe environment during visitation times (notify nurse prior to leaving bedside) 25. Consider appropriateness of medical or non-medical coordinator pesticide use 26. Set up voiding schedule as appropriate [...] Description: INTERVENTIONS: 1. Encourage patient or legal financial representative to report early pain and ask [...] per policy 9. Teach patient or legal financial representative interventions for comforting Outcome: Progressing Note: [...] at the bedside 7. Instruct patient/ patient financial representative about use of safety devices 8. Include patient/ patient financial representative in decisions related to safety Outcome: [...] hygiene technique 7. Identify and instruct patient/patient financial representative in use of appropriate isolation precautions for identified infection/symptoms 8. Provide and discuss with patient/patient financial representative on educational MDRO sheet 9. Encourage and monitor nutritional status daily and consult conveyor maintenance mechanic if indicated 10. Implement neutropenic guidelines as needed 11. Review exposure to history of communicable disease and recent travel history on admission 12. Encourage annual influenza vaccine 13. Encourage pneumonia vaccine Outcome: Progressing Note: Evaluation of progress towards goal: Pt afebrile and no outward signs of infection during shift. Problem: Knowledge Deficit Goal: Patient/patient financial representative demonstrates understanding of disease process, treatment [...] develop effective communication strategies 4. Include patient/patient financial representative in decisions related to communication Outcome: [...] Collaborate with ancillary departments 14. Include patient/patient financial representative in decisions related to anxiety Outcome: [...] providing care 6. Collaborate with pastoral/spiritual care, secondary social studies teacher, mental health counselor as needed. 7. Instruct patient on diversional activities such as physical activity, distraction, and deep breathing exercises to assist with coping 8. Involve patient's financial representative in care Outcome: Progressing Note: Evaluation [...] supplement as ordered 13. Collaborate with clinical conveyor maintenance mechanic 14. Include patient/ patient's financial representative in decisions related to nutrition Outcome: [...] be free from fall Description: Interventions: 1. [place] to environment 2. Hourly rounds addressing the [...] non-skid footwear 11. Teach patient and patient financial representative to maintain environment for safety and [...] (cane, walker) within reach 19. Request patient financial representative bring adaptive equipment/mobility aids from home or obtain and provide as needed 20. Consult pharmacy regarding effects of med's affecting mobility, cognition, and alternatives 21. Obtain physician order for PT if risk factors associated with mobility are present 22. Obtain physician order for OT as appropriate 23. Utilize diversional activities 24. Educate patient and patient financial representative how to maintain a safe environment during visitation times (notify nurse prior to leaving bedside) 25. Consider appropriateness of medical or non-medical coordinator pesticide use 26. Set up voiding schedule as appropriate (every 2 hours) Outcome: Progressing Note: Evaluation of progress towards goal: No signs of falls during shift. [facility] Narrative Inpatient Discharge Summary BRIEF OVERVIEW Admitting Provider: Jonathan Pizarro DO Discharge Provider: Jonathan Pizarro DO Primary Care Physician at Discharge: TUSAHR SOLANO JR, DO [phone] Admission Date: 10/12/2023 Discharge Date: No discharge [...] BPH 11/13/2023 2:30 PM Bernice Davis MD [facility] Referrals and Follow-ups to Schedule No dressing [...] Your Medications These medications were sent to [facility]/pharmacy #[id number] - [place], [place] - [address] [facility] [address], [place] [address] bisoprolol 5 mg tablet collagenase ointment dapagliflozin propanediol 10 mg tablet sacubitriL-valsartan 24-26 mg tablet spironolactone 25 mg tablet Kallie Roman MD PGY-3, Internal Medicine [facility] Associated attestation - Anup Reed MD [...] in 1 week documented in this encounter [facility] 10-15-2023 Hospital Discharge instructions Kallie Roman [...] week of discharge documented in this encounter [facility] 10-15-2023 History of Present illness Narrative [...] RCA in 2014. She also went to [facility] and had orbital arthrectomy of the circumflex, PCI of the distal circumflex, PCI of the mid to distal circumflex was overlapping stents and PCI proximal circumflex in 2020. She then locally had HARRY to circumflex 02/15/2023, prior stent to the LAD in 2007, prior CVA hypotension on chronic midodrine. Patient initially presented to [facility] with generalized weakness and shortness of breath. She was found to [place] [address] as well as high sensitivity troponin greater than 26,000. Potassium was profoundly low at 2.6. She was transferred to [facility] for further management. She had a [...] be continued indefinitely given significant disease in [place] coronary arteries. Optimize medical therapy for coronary [...] be continued indefinitely given significant disease in [place] coronary arteries. Optimize medical therapy for coronary artery disease. Post percutaneous coronary intervention orders Remove sheath 2.5 hours after stopping Angiomax drip. Family updated CHER Mccoy APRN-CNP 10/14/23 1001 Images from the original note were not included. [facility] CARDIOLOGY ACADEMIC SERVICE PROGRESS NOTE Ashvin Rene Ashvin Rene is a 67 y.o. 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 Optimize medical therapy for coronary [...] be continued indefinitely given significant disease in [place] coronary arteries. Optimize medical therapy for coronary [...] today, revealed 1/2 patent bypass grafts. Patent CHURHC to LAD - aspirin and Plavix - bisoprolol 5mg - continue ranexa - Continue rosuvastatin 20 mg - continue aldactone, added valsartan 40 mg - discontinue lasix 40mg BID(since pt is euvolemic) - ordered HbA1c - 4.8 - f/u on lipid profile - replace electrolytes as needed - will transfer pt to floors today - Luciano Tejeda MD Resident, PGY-1 10/14/23 7:39 AM [facility]ICE This note was completed using a voice leasing associate system. Every effort was made to ensure accuracy. However, inadvertent computerized leasing associate errors may be present. Associated attestation - [...] his on midodrine, hold on afterload reduction/ARB/ARNI [facility]ADEMIC SERVICE PROGRESS NOTE Ashvin Johnsonan Berry Clinton is a 67 y.o. 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 She states she feels better now and [...] be continued indefinitely given significant disease in [place] coronary arteries. Optimize medical therapy for coronary [...] be continued indefinitely given significant disease in [place] coronary arteries. Optimize medical therapy for coronary [...] of 35-40% Atherosclerotic heart disease of the [place] coronary arteries with stable angina pectoris History of CABG and subsequent HARRY Profound hypokalemia 2.1 in the ER at [facility] receiving replacements PLAN - plan for diagnostic cath tomorrow - aspirin and Plavix - replace potassium - continue ranexa - Continue rosuvastatin 20 mg - continue aldactone -advance diet as tolerated - Luciano Tejeda MD Resident, PGY-1 10/13/23 4:08 PM [facility] This note was completed using a voice leasing associate system. Every effort was made to ensure accuracy. However, inadvertent computerized leasing associate errors may be present. Associated attestation - Anup Reed MD - 10/13/2023 4:47 PM EDT See my separate note documented in this encounter [employer] 10-15-2023 Note XR CHEST 1 VW Procedure: Chest x-ray performed Number of views:AP view History:Hypoxia Comparison:10/12/2023 Findings: The heart and mediastinal silhouette are stable. There is pulmonary vascular congestion. There are no focal consolidations. There is a small left pleural effusion. There is no pneumothorax Impression: Pulmonary vascular congestion. Finalized by Kay Dunn DO on 10/15/2023 10:48 AM [facility] 10-15-2023 Note Procedure: Chest x-ray performed Number [...] Description: INTERVENTIONS: 1. Encourage patient or legal financial representative to report early pain and ask [...] per policy 9. Teach patient or legal financial representative interventions for comforting Outcome: Progressing Note: [...] at the bedside 7. Instruct patient/ patient financial representative about use of safety devices 8. Include patient/ patient financial representative in decisions related to safety Outcome: [...] hygiene technique 7. Identify and instruct patient/patient financial representative in use of appropriate isolation precautions for identified infection/symptoms 8. Provide and discuss with patient/patient financial representative on educational MDRO sheet 9. Encourage and monitor nutritional status daily and consult conveyor maintenance mechanic if indicated 10. Implement neutropenic guidelines as needed 11. Review exposure to history of communicable disease and recent travel history on admission 12. Encourage annual influenza vaccine 13. Encourage pneumonia vaccine Outcome: Progressing Note: Evaluation of progress towards goal: Pt afebrile and no outward signs of infection during shift. Problem: Knowledge Deficit Goal: Patient/patient financial representative demonstrates understanding of disease process, treatment [...] develop effective communication strategies 4. Include patient/patient financial representative in decisions related to communication Outcome: [...] Collaborate with ancillary departments 14. Include patient/patient financial representative in decisions related to anxiety Outcome: [...] providing care 6. Collaborate with pastoral/spiritual care, secondary social studies teacher, mental health counselor as needed. 7. Instruct patient on diversional activities such as physical activity, distraction, and deep breathing exercises to assist with coping 8. Involve patient's financial representative in care Outcome: Progressing Note: Evaluation [...] supplement as ordered 13. Collaborate with clinical conveyor maintenance mechanic 14. Include patient/ patient's financial representative in decisions related to nutrition Outcome: [...] Score of =/> [address] [facility] Assessment Goal: Patient should be free from fall Description: Interventions: 1. Ford to environment 2. Hourly rounds addressing the [...] non-skid footwear 11. Teach patient and patient financial representative to maintain environment for safety and [...] (cane, walker) within reach 19. Request patient financial representative bring adaptive equipment/mobility aids from home or obtain and provide as needed 20. Consult pharmacy regarding effects of med's affecting mobility, cognition, and alternatives 21. Obtain physician order for PT if risk factors associated with mobility are present 22. Obtain physician order for OT as appropriate 23. Utilize diversional activities 24. Educate patient and patient financial representative how to maintain a safe environment during visitation times (notify nurse prior to leaving bedside) 25. Consider appropriateness of medical or non-medical coordinator pesticide use 26. Set up voiding schedule as appropriate (every 2 hours) Outcome: Progressing Note: Evaluation of progress towards goal: No signs of falls during shift. T [employer] 10-14-2023 Plan of care note Problem: Pain Goal: Patient goal is pain score less than 4, able to rest, and participant in treatment plan as appropriate Description: INTERVENTIONS: 1. Encourage patient or legal financial representative to report early pain and ask [...] per policy 9. Teach patient or legal financial representative interventions for comforting Outcome: Progressing Note: [...] at the bedside 7. Instruct patient/ patient financial representative about use of safety devices 8. Include patient/ patient financial representative in decisions related to safety Outcome: [...] hygiene technique 7. Identify and instruct patient/patient financial representative in use of appropriate isolation precautions for identified infection/symptoms 8. Provide and discuss with patient/patient financial representative on educational MDRO sheet 9. Encourage and monitor nutritional status daily and consult conveyor maintenance mechanic if indicated 10. Implement neutropenic guidelines as needed 11. Review exposure to history of communicable disease and recent travel history on admission 12. Encourage annual influenza vaccine 13. Encourage pneumonia vaccine Outcome: Progressing Note: Evaluation of progress towards goal: Pt is afebrile at this time. Problem: Knowledge Deficit Goal: Patient/patient financial representative demonstrates understanding of disease process, treatment [...] be free from fall Description: Interventions: 1. Ford to environment 2. Hourly rounds addressing the [...] non-skid footwear 11. Teach patient and patient financial representative to maintain environment for safety and [...] (cane, walker) within reach 19. Request patient financial representative bring adaptive equipment/mobility aids from home or obtain and provide as needed 20. Consult pharmacy regarding effects of med's affecting mobility, cognition, and alternatives 21. Obtain physician order for PT if risk factors associated with mobility are present 22. Obtain physician order for OT as appropriate 23. Utilize diversional activities 24. Educate patient and patient financial representative how to maintain a safe environment during visitation times (notify nurse prior to leaving bedside) 25. Consider appropriateness of medical or non-medical coordinator pesticide use 26. Set up voiding schedule as appropriate (every 2 hours) Outcome: Progressing Note: Evaluation of progress towards goal: Pt is free from falls at this time. [facility] [employer] 10-14-2023 Procedure note Pre Procedure Evaluation: H&P was reviewed and the patient was examined. No change has occurred in the patient's condition since the H&P was completed. 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 Code Clerk Visit: ACS > 24hrs Chest Pain Symptom Assessment: typical Cardiovascular Instability: No Heart Failure: Yes Congestive Heart Failure (NYHA Classification within 2 weeks): III Heart Failure Newly Diagnosed: No Heart Failure Type: Systolic Electrocardiac Assessment Method: None Stress Test Performed: No Cardiac CTA: No [facility] Clinical Frailty Scale (Assessment immediately prior to procedure): 6: Moderately Frail Cardiac Arrest Out of Hospital: No Cardiac Arrest at Transferring Facility: No [facility] 10-14-2023 Attending History and physical note HISTORY AND PHYSICAL INTERVAL NOTE: Ashvin Rene [phone] H&P reviewed. The patient was examined and there are no changes to the H&P. Alexi Freeman MD Source Note - Lenny Rodriguez MD - 10/12/2023 11:49 PM EDT Images from the original note were not included. [facility] [facility] [address] [place] [address] HISTORY & PHYSICAL / CONSULT NOTE Ashvin [...] found to be in CHF with proBNP 52936, HS trop 72762, and K 2.1 which was repleted but [...] started on Heparin gtt and transferred to [facility]. She states she feels better now and denies CP SOB. Previous Medical History: Past Medical History: Diagnosis Date [place] Atherosclerosis of coronary artery bypass graft Atherosclerotic heart disease Coronary angioplasty status Coronary artery disease CVA (cerebral vascular accident) [place] Dyspnea Hyperlipidemia Hypertension Hypotension Other chest pain Stroke [place] Previous Surgical History: Past Surgical History: Procedure Laterality Date CARDIAC CATHETERIZATION Cardiac catheterization N/A 02/15/2023 Performed by Star Espinosa MD at [facility] CARD[facility]ATH LABS Cardiac catheterization - LV cors w/graft check N/A 10/25/2020 Performed by Alexi Freeman MD at [facility] CARDIAC CATH LABS Coronary angiogram and graft/[place] N/A 02/15/2023 Performed by Star Espinosa MD at [facility] CARDIAC CATH LABS Coronary angiogram and left ventricular gram/pressure + graft/[place] N/A 10/25/2020 Performed by Alexi Freeman MD at [facility] CARDIAC CATH LABS Coronary angiogram and left ventricular gram/pressure + graft/[place] N/A 06/18/2016 Performed by Alexi Freeman MD at [facility] CARDIAC CATH LABS CORONARY ANGIOPLASTY 12/08/2020 orbital atherectomy and 2 HARRY to prox and distal Circ, at [facility] per Dr. Madhav Ugalde CORONARY ARTERY BYPASS GRAFT 09/08/2014 HYSTERECTOMY INSERTION LOOP RECORDER 05/24/2016 Percutaneous coronary angioplasty left circumflex N/A 02/15/2023 Performed by Star Espinosa MD at [facility] CARDIAC CATH LABS Stent drug-eluting left circumflex N/A 02/15/2023 Performed by Star Espinosa MD at [facility] CARDIAC CATH LAB[facility] Allergies: Allergies Allergen Reactions Aspirin-Dipyridamole aggronox Atorvastatin Hives lipitor Cefadroxil duricef Codeine Fenofibrate Micronized tricor Fluvoxamine luvox Nefazodone serzone Niacin Other reaction(s): Intolerance-unknown Hospital Meds: Current Facility-Administered Medications Medication Dose Route Frequency Provider Last Rate Last Admin calcium gluconate IVPB 1000 mg/50 mL (20 mg/mL premix) 1,000 mg intravenous PRN Parul Russ, WAREHOUSE LOGISTICS MANAGER-AGRICULTURAL CHEMICALS INSPECTOR Or calcium gluconate IVPB 2000 mg/100 mL (20 mg/mL premix) 2,000 mg intravenous PRN Parul Hassann, WAREHOUSE LOGISTICS MANAGER-AGRICULTURAL CHEMICALS INSPECTOR Or calcium gluconate 3,000 mg in sodium chloride 0.9 % 100 mL IVPB 3,000 mg intravenous PRN Parul Russ, WAREHOUSE LOGISTICS MANAGER-AGRICULTURAL CHEMICALS INSPECTOR dextrose (GLUTOSE) 40 % gel 15 g 15 g oral PRN Parul Russ, WAREHOUSE LOGISTICS MANAGER-AGRICULTURAL CHEMICALS INSPECTOR dextrose 5 % (D5W) infusion 100 mL/hr intravenous Continuous PRN Parul Russ, WAREHOUSE LOGISTICS MANAGER-AGRICULTURAL CHEMICALS INSPECTOR dextrose 50 % in water (D50W) 50% solution 25 mL 25 mL intravenous PRN Parul Russ, WAREHOUSE LOGISTICS MANAGER-AGRICULTURAL CHEMICALS INSPECTOR glucagon HCL injection 1 mg 1 mg intramuscular PRN Parul Russ, WAREHOUSE LOGISTICS MANAGER-AGRICULTURAL CHEMICALS INSPECTOR heparin (porcine) injection 2,000 Units 2,000 Units intravenous PRN Parul Russ, WAREHOUSE LOGISTICS MANAGER-AGRICULTURAL CHEMICALS INSPECTOR [START ON 10/13/2023] heparin infusion 41111 units/500 mL in 0.45% NaCl (50 units/mL premix) 300-3,500 Units/hr intravenous Continuous Parul Russ, WAREHOUSE LOGISTICS MANAGER-AGRICULTURAL CHEMICALS INSPECTOR magnesium sulfate IVPB 2000 mg/50 mL in iso-osmotic water (40 mg/mL premix) 2,000 mg intravenous PRN Parul Hassann, WAREHOUSE LOGISTICS MANAGER-AGRICULTURAL CHEMICALS INSPECTOR Or magnesium sulfate IVPB 4000 mg/100 mL in iso-osmotic water (40 mg/mL premix) 4,000 mg intravenous PRN Parul Hassann, WAREHOUSE LOGISTICS MANAGER-AGRICULTURAL CHEMICALS INSPECTOR potassium chloride (K-TAB,KLOR-CON) CR tablet 20-50 mEq 20-50 mEq oral PRN Parul R Jeb, WAREHOUSE LOGISTICS MANAGER-AGRICULTURAL CHEMICALS INSPECTOR Or potassium chloride (KAYCIEL) 20 mEq/15 mL solution 20-50 mEq 20-50 mEq oral PRN Parul Russ, WAREHOUSE LOGISTICS MANAGER-AGRICULTURAL CHEMICALS INSPECTOR potassium chloride IVPB 10 mEq/50 mL in water (0.2 mEq/mL premix) 10 mEq intravenous PRN Parul R Jeb, WAREHOUSE LOGISTICS MANAGER-AGRICULTURAL CHEMICALS INSPECTOR Or potassium chloride IVPB 10 mEq/100 mL in water (0.1 mEq/mL premix) 10 mEq intravenous PRN Parul R Jeb, WAREHOUSE LOGISTICS MANAGER-AGRICULTURAL CHEMICALS INSPECTOR sodium phosphate 20 mmol in sodium chloride 0.9 % 250 mL IVPB 20 mmol intravenous PRN Parul R Jeb, WAREHOUSE LOGISTICS MANAGER-AGRICULTURAL CHEMICALS INSPECTOR Or sodium phosphate 20 mmol in sodium chloride 0.9 % 100 mL IVPB 20 mmol intravenous PRN Parul R Jeb, WAREHOUSE LOGISTICS MANAGER-AGRICULTURAL CHEMICALS INSPECTOR Or sod phos di, mono-K phos mono (K-PHOS NEUTRAL) 250 mg tablet 2 tablet 2 tablet oral PRN Parul R Jeb, WAREHOUSE LOGISTICS MANAGER-AGRICULTURAL CHEMICALS INSPECTOR sodium chloride 0.9 % infusion 10 mL/hr intravenous Continuous PRN Parul R Jeb, WAREHOUSE LOGISTICS MANAGER-AGRICULTURAL CHEMICALS INSPECTOR sodium chloride 0.9 % infusion 10 mL/hr intravenous Continuous PRN Parul R Jeb, WAREHOUSE LOGISTICS MANAGER-AGRICULTURAL CHEMICALS INSPECTOR sodium chloride 0.9 % infusion 10 mL/hr intravenous Continuous PRN Parul R Jeb, WAREHOUSE LOGISTICS MANAGER-AGRICULTURAL CHEMICALS INSPECTOR Home Meds: Prior to Admission medications Medication [...] be continued indefinitely given significant disease in [place] coronary arteries. Optimize medical therapy for coronary [...] be continued indefinitely given significant disease in [place] coronary arteries. Optimize medical therapy for coronary [...] Acute on chronic HFrEF Elevated HS troponin 65142 ASCVD h/o CABG and s/p PCI Cx [...] 2,000 Units intravenous PRN Parul R Jeb, WAREHOUSE LOGISTICS MANAGER-AGRICULTURAL CHEMICALS INSPECTOR heparin infusion 37955 units/500 mL in 0.45% NaCl (50 units/mL premix) 300-3,500 Units/hr intravenous Continuous Parul Holder Jeb, WAREHOUSE LOGISTICS MANAGER-AGRICULTURAL CHEMICALS INSPECTOR 16 mL/hr at 10/13/23 0013 800 Units/hr at 10/13/23 0013 magnesium sulfate IVPB 2000 mg/50 mL in iso-osmotic water (40 mg/mL premix) 2,000 mg intravenous PRN Parul R Jeb, WAREHOUSE LOGISTICS MANAGER-AGRICULTURAL CHEMICALS INSPECTOR Or magnesium sulfate IVPB 4000 mg/100 mL in iso-osmotic water (40 mg/mL premix) 4,000 mg intravenous PRN Parul R Jeb, WAREHOUSE LOGISTICS MANAGER-AGRICULTURAL CHEMICALS INSPECTOR midodrine (PROAMATINE) tablet 5 mg 5 mg oral Q8H PRN Parul R Jeb, WAREHOUSE LOGISTICS MANAGER-AGRICULTURAL CHEMICALS INSPECTOR potassium chloride (K-TAB,KLOR-CON) CR tablet 20-50 mEq 20-50 mEq oral PRN Parul R Jeb, WAREHOUSE LOGISTICS MANAGER-AGRICULTURAL CHEMICALS INSPECTOR Or potassium chloride (KAYCIEL) 20 mEq/15 mL solution 20-50 mEq 20-50 mEq oral PRN Parul R Jeb, WAREHOUSE LOGISTICS MANAGER-AGRICULTURAL CHEMICALS INSPECTOR potassium chloride IVPB 10 mEq/50 mL in water (0.2 mEq/mL premix) 10 mEq intravenous PRN Parul R Jeb, WAREHOUSE LOGISTICS MANAGER-AGRICULTURAL CHEMICALS INSPECTOR Or potassium chloride IVPB 10 mEq/100 mL in water (0.1 mEq/mL premix) 10 mEq intravenous PRN Parul R Jeb, WAREHOUSE LOGISTICS MANAGER-AGRICULTURAL CHEMICALS INSPECTOR ranolazine (RANEXA) 12 hr tablet 1,000 mg 1,000 mg oral BID Parul R Jeb, WAREHOUSE LOGISTICS MANAGER-AGRICULTURAL CHEMICALS INSPECTOR rosuvastatin (CRESTOR) tablet 20 mg 20 mg oral Daily Parul R Jeb, WAREHOUSE LOGISTICS MANAGER-AGRICULTURAL CHEMICALS INSPECTOR sodium phosphate 20 mmol in sodium chloride 0.9 % 250 mL IVPB 20 mmol intravenous PRN Parul R Jeb, WAREHOUSE LOGISTICS MANAGER-AGRICULTURAL CHEMICALS INSPECTOR Or sodium phosphate 20 mmol in sodium chloride 0.9 % 100 mL IVPB 20 mmol intravenous PRN Parul R Jeb, WAREHOUSE LOGISTICS MANAGER-AGRICULTURAL CHEMICALS INSPECTOR Or sod phos di, mono-K phos mono (K-PHOS NEUTRAL) 250 mg tablet 2 tablet 2 tablet oral PRN Parul R Jeb, WAREHOUSE LOGISTICS MANAGER-AGRICULTURAL CHEMICALS INSPECTOR sodium chloride 0.9 % infusion 10 mL/hr intravenous Continuous PRN Parul R Jeb, WAREHOUSE LOGISTICS MANAGER-AGRICULTURAL CHEMICALS INSPECTOR sodium chloride 0.9 % infusion 10 mL/hr intravenous Continuous PRN Parul R Jeb, WAREHOUSE LOGISTICS MANAGER-AGRICULTURAL CHEMICALS INSPECTOR sodium chloride 0.9 % infusion 10 mL/hr intravenous Continuous PRN Parul R Jeb, WAREHOUSE LOGISTICS MANAGER-AGRICULTURAL CHEMICALS INSPECTOR Laboratory CBC: BMP: Troponin I Physical Exam [...] This note was completed using a voice leasing associate system. Every effort was made to ensure accuracy. However, inadvertent computerized leasing associate errors may be present. [employer] Work Phone: 10-14-2023 History and physical note HISTORY AND PHYSICAL INTERVAL NOTE: Ashvin Rene [id number] H&P reviewed. The patient was examined and there are no changes to the H&P. Alexi Freeman MD Source Note - Lenny Rodriguez MD - 10/12/2023 11:49 PM EDT Images from the original note were not included. [facility] [address] [place] [address] HISTORY & PHYSICAL / CONSULT NOTE Ashvin [...] found to be in CHF with proBNP 52224, HS trop 60965, and K 2.1 which was repleted but [...] Past Medical History: Diagnosis Date Angina pectoris [place] Atherosclerosis of coronary artery bypass graft Atherosclerotic heart disease Coronary angioplasty status Coronary artery disease CVA (cerebral vascular accident) [place] Dyspnea Hyperlipidemia Hypertension Hypotension Other chest pain Stroke [place] Previous Surgical History: Past Surgical History: Procedure Laterality Date CARDIAC CATHETERIZATION Cardiac catheterization N/A 02/15/2023 Performed by Star Espinosa MD at [facility] CARDIAC CATH LABS Cardiac catheterization - LV cors w/graft check N/A 10/25/2020 Performed by Alexi Freeman MD at [facility] CARDIAC CATH LABS Coronary angiogram and graft/[place] N/A 02/15/2023 Performed by Star Espinosa MD at [facility] CARDIAC CATH LABS Coronary angiogram and left ventricular gram/pressure + graft/[place] N/A 10/25/2020 Performed by Alexi Freeman MD at [facility] CARDIAC CATH LABS Coronary angiogram and left ventricular gram/pressure + graft/[place] N/A 06/18/2016 Performed by Alexi Freeman MD at [facility] CARDIAC CATH LABS CORONARY ANGIOPLASTY 12/08/2020 orbital atherectomy and 2 HARRY to prox and distal Circ, at [facility] per Dr. Madhav Ugalde CORONARY ARTERY BYPASS GRAFT 09/08/2014 HYSTERECTOMY INSERTION LOOP RECORDER 05/24/2016 Percutaneous coronary angioplasty left circumflex N/A 02/15/2023 Performed by Star Espinosa MD at [facility] CARDIAC CATH LABS Stent drug-eluting left circumflex N/A 02/15/2023 Performed by Star Espinosa MD at [facility] CARDIAC CATH LABS Allergies: Allergies Allergen Reactions [...] Russ APRN-SUNIL [START ON 10/13/2023] heparin infusion 71158 units/500 mL in 0.45% NaCl (50 units/mL premix) 300-3,500 Units/hr intravenous Continuous Parul Russ APRN-SUNIL magnesium sulfate IVPB 2000 mg/50 mL in iso-osmotic water (40 mg/mL premix) 2,000 mg intravenous PRN Parul R Jeb, WAREHOUSE LOGISTICS MANAGER-AGRICULTURAL CHEMICALS INSPECTOR Or magnesium sulfate IVPB 4000 mg/100 mL in iso-osmotic water (40 mg/mL premix) 4,000 mg intravenous PRN Parul R Jeb, WAREHOUSE LOGISTICS MANAGER-AGRICULTURAL CHEMICALS INSPECTOR potassium chloride (K-TAB,KLOR-CON) CR tablet 20-50 mEq 20-50 mEq oral PRN Parul R Jeb, WAREHOUSE LOGISTICS MANAGER-AGRICULTURAL CHEMICALS INSPECTOR Or potassium chloride (KAYCIEL) 20 mEq/15 mL solution 20-50 mEq 20-50 mEq oral PRN Parul R Jeb, WAREHOUSE LOGISTICS MANAGER-AGRICULTURAL CHEMICALS INSPECTOR potassium chloride IVPB 10 mEq/50 mL in water (0.2 mEq/mL premix) 10 mEq intravenous PRN Parul R Jeb, WAREHOUSE LOGISTICS MANAGER-AGRICULTURAL CHEMICALS INSPECTOR Or potassium chloride IVPB 10 mEq/100 mL in water (0.1 mEq/mL premix) 10 mEq intravenous PRN Parul R Jeb, WAREHOUSE LOGISTICS MANAGER-AGRICULTURAL CHEMICALS INSPECTOR sodium phosphate 20 mmol in sodium chloride 0.9 % 250 mL IVPB 20 mmol intravenous PRN Parul R Jeb, WAREHOUSE LOGISTICS MANAGER-AGRICULTURAL CHEMICALS INSPECTOR Or sodium phosphate 20 mmol in sodium chloride 0.9 % 100 mL IVPB 20 mmol intravenous PRN Parul R Jeb, WAREHOUSE LOGISTICS MANAGER-AGRICULTURAL CHEMICALS INSPECTOR Or sod phos di, mono-K phos mono (K-PHOS NEUTRAL) 250 mg tablet 2 tablet 2 tablet oral PRN Parul R Jeb, WAREHOUSE LOGISTICS MANAGER-AGRICULTURAL CHEMICALS INSPECTOR sodium chloride 0.9 % infusion 10 mL/hr intravenous Continuous PRN Parul R Jeb, WAREHOUSE LOGISTICS MANAGER-AGRICULTURAL CHEMICALS INSPECTOR sodium chloride 0.9 % infusion 10 mL/hr intravenous Continuous PRN Parul R Jeb, WAREHOUSE LOGISTICS MANAGER-AGRICULTURAL CHEMICALS INSPECTOR sodium chloride 0.9 % infusion 10 mL/hr intravenous Continuous PRN Parul R Jeb, WAREHOUSE LOGISTICS MANAGER-AGRICULTURAL CHEMICALS INSPECTOR Home Meds: Prior to Admission medications Medication [...] be continued indefinitely given significant disease in [place] coronary arteries. Optimize medical therapy for coronary [...] be continued indefinitely given significant disease in [place] coronary arteries. Optimize medical therapy for coronary [...] data in the 24 hours ending 10/12/23 8809 General appearance: Alert oriented and cooperative, in [...] Acute on chronic HFrEF Elevated HS troponin 76856 ASCVD h/o CABG and s/p PCI Cx [...] 75 mg oral Daily Parul R Jeb, WAREHOUSE LOGISTICS MANAGER-AGRICULTURAL CHEMICALS INSPECTOR dextrose (GLUTOSE) 40 % gel 15 g 15 g oral PRN Parul Russ, WAREHOUSE LOGISTICS MANAGER-AGRICULTURAL CHEMICALS INSPECTOR dextrose 5 % (D5W) infusion 100 mL/hr intravenous Continuous PRN Parul Russ, WAREHOUSE LOGISTICS MANAGER-AGRICULTURAL CHEMICALS INSPECTOR dextrose 50 % in water (D50W) 50% solution 25 mL 25 mL intravenous PRN Parul Hassann, WAREHOUSE LOGISTICS MANAGER-AGRICULTURAL CHEMICALS INSPECTOR glucagon HCL injection 1 mg 1 mg intramuscular PRN Parul Russ, WAREHOUSE LOGISTICS MANAGER-AGRICULTURAL CHEMICALS INSPECTOR heparin (porcine) injection 2,000 Units 2,000 Units intravenous PRN Parul Hassann, WAREHOUSE LOGISTICS MANAGER-AGRICULTURAL CHEMICALS INSPECTOR heparin infusion 64091 units/500 mL in 0.45% NaCl (50 units/mL premix) 300-3,500 Units/hr intravenous Continuous Parul Hassann, WAREHOUSE LOGISTICS MANAGER-AGRICULTURAL CHEMICALS INSPECTOR 16 mL/hr at 10/13/23 0013 800 Units/hr at 10/13/23 0013 magnesium sulfate IVPB 2000 mg/50 mL in iso-osmotic water (40 mg/mL premix) 2,000 mg intravenous PRN Parul Russ, WAREHOUSE LOGISTICS MANAGER-AGRICULTURAL CHEMICALS INSPECTOR Or magnesium sulfate IVPB 4000 mg/100 mL in iso-osmotic water (40 mg/mL premix) 4,000 mg intravenous PRN Parul Russ, WAREHOUSE LOGISTICS MANAGER-AGRICULTURAL CHEMICALS INSPECTOR midodrine (PROAMATINE) tablet 5 mg 5 mg oral Q8H PRN Parul Russ, WAREHOUSE LOGISTICS MANAGER-AGRICULTURAL CHEMICALS INSPECTOR potassium chloride (K-TAB,KLOR-CON) CR tablet 20-50 mEq 20-50 mEq oral PRN Parul Russ, WAREHOUSE LOGISTICS MANAGER-AGRICULTURAL CHEMICALS INSPECTOR Or potassium chloride (KAYCIEL) 20 mEq/15 mL solution 20-50 mEq 20-50 mEq oral PRN Parul Hassann, WAREHOUSE LOGISTICS MANAGER-AGRICULTURAL CHEMICALS INSPECTOR potassium chloride IVPB 10 mEq/50 mL in water (0.2 mEq/mL premix) 10 mEq intravenous PRN Parul Holder Jeb, WAREHOUSE LOGISTICS MANAGER-AGRICULTURAL CHEMICALS INSPECTOR Or potassium chloride IVPB 10 mEq/100 mL in water (0.1 mEq/mL premix) 10 mEq intravenous PRN Parul Hassann, WAREHOUSE LOGISTICS MANAGER-AGRICULTURAL CHEMICALS INSPECTOR ranolazine (RANEXA) 12 hr tablet 1,000 mg 1,000 mg oral BID Parul Hassann, WAREHOUSE LOGISTICS MANAGER-AGRICULTURAL CHEMICALS INSPECTOR rosuvastatin (CRESTOR) tablet 20 mg 20 mg oral Daily Parul R Jeb, WAREHOUSE LOGISTICS MANAGER-AGRICULTURAL CHEMICALS INSPECTOR sodium phosphate 20 mmol in sodium chloride 0.9 % 250 mL IVPB 20 mmol intravenous PRN Parul R Jeb, WAREHOUSE LOGISTICS MANAGER-AGRICULTURAL CHEMICALS INSPECTOR Or sodium phosphate 20 mmol in sodium chloride 0.9 % 100 mL IVPB 20 mmol intravenous PRN Parul R Jeb, WAREHOUSE LOGISTICS MANAGER-AGRICULTURAL CHEMICALS INSPECTOR Or sod phos di, mono-K phos mono (K-PHOS NEUTRAL) 250 mg tablet 2 tablet 2 tablet oral PRN Parul R Jeb, WAREHOUSE LOGISTICS MANAGER-AGRICULTURAL CHEMICALS INSPECTOR sodium chloride 0.9 % infusion 10 mL/hr intravenous Continuous PRN Parul R Jeb, WAREHOUSE LOGISTICS MANAGER-AGRICULTURAL CHEMICALS INSPECTOR sodium chloride 0.9 % infusion 10 mL/hr intravenous Continuous PRN Parul R Jeb, WAREHOUSE LOGISTICS MANAGER-AGRICULTURAL CHEMICALS INSPECTOR sodium chloride 0.9 % infusion 10 mL/hr intravenous Continuous PRN Parul R Jeb, WAREHOUSE LOGISTICS MANAGER-AGRICULTURAL CHEMICALS INSPECTOR Laboratory CBC: BMP: Troponin I Physical Exam [...] This note was completed using a voice leasing associate system. Every effort was made to ensure accuracy. However, inadvertent computerized leasing associate errors may be present. Images from the original note were not included. [facility] [address] [place] [address] HISTORY & PHYSICAL / CONSULT NOTE Ashvin [...] found to be in CHF with proBNP 69554, HS trop 21693, and K 2.1 which was repleted but [...] Past Medical History: Diagnosis Date Angina pectoris [place] Atherosclerosis of coronary artery bypass graft Atherosclerotic heart disease Coronary angioplasty status Coronary artery disease CVA (cerebral vascular accident) [place] Dyspnea Hyperlipidemia Hypertension Hypotension Other chest pain Stroke ([facility] Previous Surgical History: Past Surgical History: Procedure Laterality Date CARDIAC CATHETERIZATION Cardiac catheterization N/A 02/15/2023 Performed by Star Espinosa MD at [facility] CARDIAC CATH LABS Cardiac catheterization - LV cors w/graft check N/A 10/25/2020 Performed by Alexi Freeman MD at [facility] CARDIAC CATH LABS Coronary angiogram and graft/[place] N/A 02/15/2023 Performed by Star Espinosa MD at [facility] CARDIAC CATH LABS Coronary angiogram and left ventricular gram/pressure + graft/[place] N/A 10/25/2020 Performed by Alexi Freeman MD at [facility] CARDIAC CATH LABS Coronary angiogram and left ventricular gram/pressure + graft/[place] N/A 06/18/2016 Performed by Alexi Freeman MD at [facility] CARDIAC CATH LABS CORONARY ANGIOPLASTY 12/08/2020 orbital atherectomy and 2 HARRY to prox and distal Circ, at [facility] per Dr. Madhav Ugalde CORONARY ARTERY BYPASS GRAFT 09/08/2014 HYSTERECTOMY INSERTION LOOP RECORDER 05/24/2016 Percutaneous coronary angioplasty left circumflex N/A 02/15/2023 Performed by Star Espinosa MD at [facility] CARDIAC CATH LABS Stent drug-eluting left circumflex N/A 02/15/2023 Performed by Star Espinosa MD at [facility] CARDIAC CATH LABS Allergies: Allergies Allergen Reactions [...] CHER Rincon [START ON 10/13/2023] heparin infusion 65847 units/500 mL in 0.45% NaCl (50 units/mL premix) 300-3,500 Units/hr intravenous Continuous CHER Rincon magnesium sulfate IVPB 2000 mg/50 mL in iso-osmotic water (40 mg/mL premix) 2,000 mg intravenous PRN Parul R Jeb, WAREHOUSE LOGISTICS MANAGER-AGRICULTURAL CHEMICALS INSPECTOR Or magnesium sulfate IVPB 4000 mg/100 mL in iso-osmotic water (40 mg/mL premix) 4,000 mg intravenous PRN Parul R Jeb, WAREHOUSE LOGISTICS MANAGER-AGRICULTURAL CHEMICALS INSPECTOR potassium chloride (K-TAB,KLOR-CON) CR tablet 20-50 mEq 20-50 mEq oral PRN Parul R Jeb, WAREHOUSE LOGISTICS MANAGER-AGRICULTURAL CHEMICALS INSPECTOR Or potassium chloride (KAYCIEL) 20 mEq/15 mL solution 20-50 mEq 20-50 mEq oral PRN Praul R Jeb, WAREHOUSE LOGISTICS MANAGER-AGRICULTURAL CHEMICALS INSPECTOR potassium chloride IVPB 10 mEq/50 mL in water (0.2 mEq/mL premix) 10 mEq intravenous PRN Parul R Jeb, WAREHOUSE LOGISTICS MANAGER-AGRICULTURAL CHEMICALS INSPECTOR Or potassium chloride IVPB 10 mEq/100 mL in water (0.1 mEq/mL premix) 10 mEq intravenous PRN Parul R Jeb, WAREHOUSE LOGISTICS MANAGER-AGRICULTURAL CHEMICALS INSPECTOR sodium phosphate 20 mmol in sodium chloride 0.9 % 250 mL IVPB 20 mmol intravenous PRN Parul R Jeb, WAREHOUSE LOGISTICS MANAGER-AGRICULTURAL CHEMICALS INSPECTOR Or sodium phosphate 20 mmol in sodium chloride 0.9 % 100 mL IVPB 20 mmol intravenous PRN Parul R Jeb, WAREHOUSE LOGISTICS MANAGER-AGRICULTURAL CHEMICALS INSPECTOR Or sod phos di, mono-K phos mono (K-PHOS NEUTRAL) 250 mg tablet 2 tablet 2 tablet oral PRN Parul R Jeb, WAREHOUSE LOGISTICS MANAGER-AGRICULTURAL CHEMICALS INSPECTOR sodium chloride 0.9 % infusion 10 mL/hr intravenous Continuous PRN Parul R Jeb, WAREHOUSE LOGISTICS MANAGER-AGRICULTURAL CHEMICALS INSPECTOR sodium chloride 0.9 % infusion 10 mL/hr intravenous Continuous PRN Parul R Jeb, WAREHOUSE LOGISTICS MANAGER-AGRICULTURAL CHEMICALS INSPECTOR sodium chloride 0.9 % infusion 10 mL/hr intravenous Continuous PRN Parul R Jeb, WAREHOUSE LOGISTICS MANAGER-AGRICULTURAL CHEMICALS INSPECTOR Home Meds: Prior to Admission medications Medication [...] be continued indefinitely given significant disease in [place] coronary arteries. Optimize medical therapy for coronary [...] be continued indefinitely given significant disease in [place] coronary arteries. Optimize medical therapy for coronary [...] Acute on chronic HFrEF Elevated HS troponin 36298 ASCVD h/o CABG and s/p PCI Cx [...] 75 mg oral Daily Parul R Jeb, WAREHOUSE LOGISTICS MANAGER-AGRICULTURAL CHEMICALS INSPECTOR dextrose (GLUTOSE) 40 % gel 15 g 15 g oral PRN Parul Hassann, WAREHOUSE LOGISTICS MANAGER-AGRICULTURAL CHEMICALS INSPECTOR dextrose 5 % (D5W) infusion 100 mL/hr intravenous Continuous PRN Parul Hassann, WAREHOUSE LOGISTICS MANAGER-AGRICULTURAL CHEMICALS INSPECTOR dextrose 50 % in water (D50W) 50% solution 25 mL 25 mL intravenous PRN Parul Holder Jeb, WAREHOUSE LOGISTICS MANAGER-AGRICULTURAL CHEMICALS INSPECTOR glucagon HCL injection 1 mg 1 mg intramuscular PRN Parul Holder Jeb, WAREHOUSE LOGISTICS MANAGER-AGRICULTURAL CHEMICALS INSPECTOR heparin (porcine) injection 2,000 Units 2,000 Units intravenous PRN Parul R Jeb, WAREHOUSE LOGISTICS MANAGER-AGRICULTURAL CHEMICALS INSPECTOR heparin infusion 80830 units/500 mL in 0.45% NaCl (50 units/mL premix) 300-3,500 Units/hr intravenous Continuous Parul R Jeb, WAREHOUSE LOGISTICS MANAGER-AGRICULTURAL CHEMICALS INSPECTOR 16 mL/hr at 10/13/23 0013 800 Units/hr at 10/13/23 0013 magnesium sulfate IVPB 2000 mg/50 mL in iso-osmotic water (40 mg/mL premix) 2,000 mg intravenous PRN Parul R Jeb, WAREHOUSE LOGISTICS MANAGER-AGRICULTURAL CHEMICALS INSPECTOR Or magnesium sulfate IVPB 4000 mg/100 mL in iso-osmotic water (40 mg/mL premix) 4,000 mg intravenous PRN Parul Hassann, WAREHOUSE LOGISTICS MANAGER-AGRICULTURAL CHEMICALS INSPECTOR midodrine (PROAMATINE) tablet 5 mg 5 mg oral Q8H PRN Parul Holder Jeb, WAREHOUSE LOGISTICS MANAGER-AGRICULTURAL CHEMICALS INSPECTOR potassium chloride (K-TAB,KLOR-CON) CR tablet 20-50 mEq 20-50 mEq oral PRN Parul R Jeb, WAREHOUSE LOGISTICS MANAGER-AGRICULTURAL CHEMICALS INSPECTOR Or potassium chloride (KAYCIEL) 20 mEq/15 mL solution 20-50 mEq 20-50 mEq oral PRN Parul R Jeb, WAREHOUSE LOGISTICS MANAGER-AGRICULTURAL CHEMICALS INSPECTOR potassium chloride IVPB 10 mEq/50 mL in water (0.2 mEq/mL premix) 10 mEq intravenous PRN Parul R Jeb, WAREHOUSE LOGISTICS MANAGER-AGRICULTURAL CHEMICALS INSPECTOR Or potassium chloride IVPB 10 mEq/100 mL in water (0.1 mEq/mL premix) 10 mEq intravenous PRN Parul R Jeb, WAREHOUSE LOGISTICS MANAGER-AGRICULTURAL CHEMICALS INSPECTOR ranolazine (RANEXA) 12 hr tablet 1,000 mg 1,000 mg oral BID Parul Mcdowellfern, WAREHOUSE LOGISTICS MANAGER-AGRICULTURAL CHEMICALS INSPECTOR rosuvastatin (CRESTOR) tablet 20 mg 20 mg oral Daily Parul R Jeb, WAREHOUSE LOGISTICS MANAGER-AGRICULTURAL CHEMICALS INSPECTOR sodium phosphate 20 mmol in sodium chloride 0.9 % 250 mL IVPB 20 mmol intravenous PRN Parul R Jeb, WAREHOUSE LOGISTICS MANAGER-AGRICULTURAL CHEMICALS INSPECTOR Or sodium phosphate 20 mmol in sodium chloride 0.9 % 100 mL IVPB 20 mmol intravenous PRN Parul R Jeb, WAREHOUSE LOGISTICS MANAGER-AGRICULTURAL CHEMICALS INSPECTOR Or sod phos di, mono-K phos mono (K-PHOS NEUTRAL) 250 mg tablet 2 tablet 2 tablet oral PRN Parul R Jeb, WAREHOUSE LOGISTICS MANAGER-AGRICULTURAL CHEMICALS INSPECTOR sodium chloride 0.9 % infusion 10 mL/hr intravenous Continuous PRN Parul R Jeb, WAREHOUSE LOGISTICS MANAGER-AGRICULTURAL CHEMICALS INSPECTOR sodium chloride 0.9 % infusion 10 mL/hr intravenous Continuous PRN Parul R Jeb, WAREHOUSE LOGISTICS MANAGER-AGRICULTURAL CHEMICALS INSPECTOR sodium chloride 0.9 % infusion 10 mL/hr intravenous Continuous PRN Parul R Jeb, WAREHOUSE LOGISTICS MANAGER-AGRICULTURAL CHEMICALS INSPECTOR Laboratory CBC: BMP: Troponin I Physical Exam [...] This note was completed using a voice leasing associate system. Every effort was made to ensure accuracy. However, inadvertent computerized leasing associate errors may be present. documented in this encounter [facility] 10-14-2023 Nurse Note Adjusted CathPCI Bleeding [...] is an appropriate candidate for the procedure. [facility] 10-13-2023 Plan of care note Problem: Pain Goal: Patient goal is pain score less than 4, able to rest, and participant in treatment plan as appropriate Description: INTERVENTIONS: 1. Encourage patient or legal financial representative to report early pain and ask [...] per policy 9. Teach patient or legal financial representative interventions for comforting Outcome: Progressing Note: [...] at the bedside 7. Instruct patient/ patient financial representative about use of safety devices 8. Include patient/ patient financial representative in decisions related to safety Outcome: [...] hygiene technique 7. Identify and instruct patient/patient financial representative in use of appropriate isolation precautions for identified infection/symptoms 8. Provide and discuss with patient/patient financial representative on educational MDRO sheet 9. Encourage and monitor nutritional status daily and consult conveyor maintenance mechanic if indicated 10. Implement neutropenic guidelines as needed 11. Review exposure to history of communicable disease and recent travel history on admission 12. Encourage annual influenza vaccine 13. Encourage pneumonia vaccine Outcome: Progressing Note: Evaluation of progress towards goal: Patient afebrile and WBC of 5.3. Will continue to monitor for signs of infection Problem: Knowledge Deficit Goal: Patient/patient financial representative demonstrates understanding of disease process, treatment [...] develop effective communication strategies 4. Include patient/patient financial representative in decisions related to communication Outcome: [...] supplement as ordered 13. Collaborate with clinical conveyor maintenance mechanic 14. Include patient/ patient's financial representative in decisions related to nutrition Outcome: Progressing Note: Evaluation of progress towards goal: Collaborating with interdisciplinary team to ensure adequate nutritional intake. Problem: Moderate - High Risk Fall Score Description: Beal Fall Score of =/> [address] [facility] Assessment Goal: Patient should be free from fall Description: Interventions: 1. Ford to environment 2. Hourly rounds addressing the [...] non-skid footwear 11. Teach patient and patient financial representative to maintain environment for safety and [...] (cane, walker) within reach 19. Request patient financial representative bring adaptive equipment/mobility aids from home or obtain and provide as needed 20. Consult pharmacy regarding effects of med's affecting mobility, cognition, and alternatives 21. Obtain physician order for PT if risk factors associated with mobility are present 22. Obtain physician order for OT as appropriate 23. Utilize diversional activities 24. Educate patient and patient financial representative how to maintain a safe environment during visitation times (notify nurse prior to leaving bedside) 25. Consider appropriateness of medical or non-medical coordinator pesticide use 26. Set up voiding schedule as appropriate (every 2 hours) Outcome: Progressing Note: Evaluation of progress towards goal: Area clear of hazards. Bed locked and in lowest position. Side rails up. Hourly rounding complete. Pt remains free from falls at this time. [facility] 10-13-2023 Plan of care note Problem: Pain Goal: Patient goal is pain score less than 4, able to rest, and participant in treatment plan as appropriate Description: INTERVENTIONS: 1. Encourage patient or legal financial representative to report early pain and ask [...] per policy 9. Teach patient or legal financial representative interventions for comforting Outcome: Progressing Note: [...] at the bedside 7. Instruct patient/ patient financial representative about use of safety devices 8. Include patient/ patient financial representative in decisions related to safety Outcome: [...] hygiene technique 7. Identify and instruct patient/patient financial representative in use of appropriate isolation precautions for identified infection/symptoms 8. Provide and discuss with patient/patient financial representative on educational MDRO sheet 9. Encourage and monitor nutritional status daily and consult conveyor maintenance mechanic if indicated 10. Implement neutropenic guidelines as needed 11. Review exposure to history of communicable disease and recent travel history on admission 12. Encourage annual influenza vaccine 13. Encourage pneumonia vaccine Outcome: Progressing Note: Evaluation of progress towards goal: Pt is afebrile at this time. Problem: Knowledge Deficit Goal: Patient/patient financial representative demonstrates understanding of disease process, treatment [...] Score of =/> [address] [facility] Assessment Goal: Patient should be free from fall Description: Interventions: 1. Ford to environment 2. Hourly rounds addressing the [...] non-skid footwear 11. Teach patient and patient financial representative to maintain environment for safety and [...] (cane, walker) within reach 19. Request patient financial representative bring adaptive equipment/mobility aids from home or obtain and provide as needed 20. Consult pharmacy regarding effects of med's affecting mobility, cognition, and alternatives 21. Obtain physician order for PT if risk factors associated with mobility are present 22. Obtain physician order for OT as appropriate 23. Utilize diversional activities 24. Educate patient and patient financial representative how to maintain a safe environment during visitation times (notify nurse prior to leaving bedside) 25. Consider appropriateness of medical or non-medical coordinator pesticide use 26. Set up voiding schedule as appropriate (every 2 hours) Outcome: Progressing Note: Evaluation of progress towards goal: Pt is free from falls at this time. [employer] 10-13-2023 Progress note Formatting of t his note might be different from the original. Pt comfortable. No chest pain. No sob on 2 L ECG without sig ST abn Tr 13 Continues on heparin/DAPT Ionized mg .24 NSTEMI 2. Acute on chronic heart failure Keep NPO as LHC may be considered Supplement mg before diuresing [facility] 10-13-2023 Plan of care note Problem: Pain Goal: Patient goal is pain score less than 4, able to rest, and participant in treatment plan as appropriate Description: INTERVENTIONS: 1. Encourage patient or legal financial representative to report early pain and ask [...] per policy 9. Teach patient or legal financial representative interventions for comforting Outcome: Progressing Note: [...] at the bedside 7. Instruct patient/ patient financial representative about use of safety devices 8. Include patient/ patient financial representative in decisions related to safety Outcome: [...] hygiene technique 7. Identify and instruct patient/patient financial representative in use of appropriate isolation precautions for identified infection/symptoms 8. Provide and discuss with patient/patient financial representative on educational MDRO sheet 9. Encourage and monitor nutritional status daily and consult conveyor maintenance mechanic if indicated 10. Implement neutropenic guidelines as needed 11. Review exposure to history of communicable disease and recent travel history on admission 12. Encourage annual influenza vaccine 13. Encourage pneumonia vaccine Outcome: Progressing Note: Evaluation of progress towards goal: Pt afebrile and no outward signs of infection during shift. Problem: Knowledge Deficit Goal: Patient/patient financial representative demonstrates understanding of disease process, treatment [...] develop effective communication strategies 4. Include patient/patient financial representative in decisions related to communication Outcome: [...] Collaborate with ancillary departments 14. Include patient/patient financial representative in decisions related to anxiety Outcome: [...] providing care 6. Collaborate with pastoral/spiritual care, secondary social studies teacher, mental health counselor as needed. 7. Instruct patient on diversional activities such as physical activity, distraction, and deep breathing exercises to assist with coping 8. Involve patient's financial representative in care Outcome: Progressing Note: Evaluation [...] supplement as ordered 13. Collaborate with clinical conveyor maintenance mechanic 14. Include patient/ patient's financial representative in decisions related to nutrition Outcome: [...] Score of =/> [address] [facility] Assessment Goal: Patient should be free from fall Description: Interventions: 1. Ford to environment 2. Hourly rounds addressing the [...] non-skid footwear 11. Teach patient and patient financial representative to maintain environment for safety and [...] (cane, walker) within reach 19. Request patient financial representative bring adaptive equipment/mobility aids from home or obtain and provide as needed 20. Consult pharmacy regarding effects of med's affecting mobility, cognition, and alternatives 21. Obtain physician order for PT if risk factors associated with mobility are present 22. Obtain physician order for OT as appropriate 23. Utilize diversional activities 24. Educate patient and patient financial representative how to maintain a safe environment during visitation times (notify nurse prior to leaving bedside) 25. Consider appropriateness of medical or non-medical coordinator pesticide use 26. Set up voiding schedule as appropriate (every 2 hours) Outcome: Progressing Note: Evaluation of progress towards goal: No signs of falls during shift. [facility] 10-12-2023 History and physical note Images from the original note were not included. [facility] [address] [place] [address] HISTORY & PHYSICAL / CONSULT NOTE Ashvin [...] found to be in CHF with proBNP 14238, HS trop 76128, and K 2.1 which was repleted but [...] started on Heparin gtt and transferred to [facility]. She states she feels better now and denies CP SOB. Previous Medical History: Past Medical History: Diagnosis Date [place] p[place] Atherosclerosis of coronary artery bypass graft Atherosclerotic heart disease Coronary angioplasty status Coronary artery disease CVA (cerebral vascular accident) [place] Dyspnea Hyperlipidemia Hypertension Hypotension Other chest pain Stroke [place] Previous Surgical History: Past Surgical History: Procedure Laterality Date CARDIAC CATHETERIZATION Cardiac catheterization N/A 02/15/2023 Performed by Star Espinosa MD at [facility] CARDIAC CATH LABS Cardiac catheterization - LV cors w/graft check N/A 10/25/2020 Performed by Alexi Freeman MD at [facility] CARDIAC CATH LABS Coronary angiogram and graft/[place] N/A 02/15/2023 Performed by Star Espinosa MD at [facility] CARDIAC CATH LABS Coronary angiogram and left ventricular gram/pressure + graft/[place] N/A 10/25/2020 Performed by Alexi Freeman MD at [facility] CARDIAC CATH LABS Coronary angiogram and left ventricular gram/pressure + graft/[place] N/A 06/18/2016 Performed by Alexi Freeman MD at [facility] CARDIAC CATH LABS CORONARY ANGIOPLASTY 12/08/2020 orbital atherectomy and 2 HARRY to prox and distal Circ, at [facility] per Dr. Madhav Ugalde CORONARY ARTERY BYPASS GRAFT 09/08/2014 HYSTERECTOMY INSERTION LOOP RECORDER 05/24/2016 Percutaneous coronary angioplasty left circumflex N/A 02/15/2023 Performed by Star Espinosa MD at [facility] CARDIAC CATH LABS Stent drug-eluting left circumflex N/A 02/15/2023 Performed by Star Espinosa MD at [facility] CARDIAC CATH LABS Allergies: Allergies Allergen Reactions Aspirin-Dipyridamole aggronox Atorvastatin Hives lipitor Cefadroxil duricef Codeine Fenofibrate Micronized tricor Fluvoxamine luvox Nefazodone serzone Niacin Other reaction(s): Intolerance-unknown Hospital Meds: Current Facility-Administered Medications Medication Dose Route Frequency Provider Last Rate Last Admin calcium gluconate IVPB 1000 mg/50 mL (20 mg/mL premix) 1,000 mg intravenous PRN Parul R Jeb, WAREHOUSE LOGISTICS MANAGER-AGRICULTURAL CHEMICALS INSPECTOR Or calcium gluconate IVPB 2000 mg/100 mL (20 mg/mL premix) 2,000 mg intravenous PRN Parul R Jeb, WAREHOUSE LOGISTICS MANAGER-AGRICULTURAL CHEMICALS INSPECTOR Or calcium gluconate 3,000 mg in sodium chloride 0.9 % 100 mL IVPB 3,000 mg intravenous PRN Parul Holder Jeb, WAREHOUSE LOGISTICS MANAGER-AGRICULTURAL CHEMICALS INSPECTOR dextrose (GLUTOSE) 40 % gel 15 g 15 g oral PRN Parul Hassann, WAREHOUSE LOGISTICS MANAGER-AGRICULTURAL CHEMICALS INSPECTOR dextrose 5 % (D5W) infusion 100 mL/hr intravenous Continuous PRN Parul Holder Jeb, WAREHOUSE LOGISTICS MANAGER-AGRICULTURAL CHEMICALS INSPECTOR dextrose 50 % in water (D50W) 50% solution 25 mL 25 mL intravenous PRN Parul Russ, WAREHOUSE LOGISTICS MANAGER-AGRICULTURAL CHEMICALS INSPECTOR glucagon HCL injection 1 mg 1 mg intramuscular PRN Parul Russ, WAREHOUSE LOGISTICS MANAGER-AGRICULTURAL CHEMICALS INSPECTOR heparin (porcine) injection 2,000 Units 2,000 Units intravenous PRN Parul Hassann, WAREHOUSE LOGISTICS MANAGER-AGRICULTURAL CHEMICALS INSPECTOR [START ON 10/13/2023] heparin infusion 00387 units/500 mL in 0.45% NaCl (50 units/mL premix) 300-3,500 Units/hr intravenous Continuous Parul Russ, WAREHOUSE LOGISTICS MANAGER-AGRICULTURAL CHEMICALS INSPECTOR magnesium sulfate IVPB 2000 mg/50 mL in iso-osmotic water (40 mg/mL premix) 2,000 mg intravenous PRN Parul R Jeb, WAREHOUSE LOGISTICS MANAGER-AGRICULTURAL CHEMICALS INSPECTOR Or magnesium sulfate IVPB 4000 mg/100 mL in iso-osmotic water (40 mg/mL premix) 4,000 mg intravenous PRN Parul R Jeb, WAREHOUSE LOGISTICS MANAGER-AGRICULTURAL CHEMICALS INSPECTOR potassium chloride (K-TAB,KLOR-CON) CR tablet 20-50 mEq 20-50 mEq oral PRN Parul R Jeb, WAREHOUSE LOGISTICS MANAGER-AGRICULTURAL CHEMICALS INSPECTOR Or potassium chloride (KAYCIEL) 20 mEq/15 mL solution 20-50 mEq 20-50 mEq oral PRN Parul R Jeb, WAREHOUSE LOGISTICS MANAGER-AGRICULTURAL CHEMICALS INSPECTOR potassium chloride IVPB 10 mEq/50 mL in water (0.2 mEq/mL premix) 10 mEq intravenous PRN Parul R Jbe, WAREHOUSE LOGISTICS MANAGER-AGRICULTURAL CHEMICALS INSPECTOR Or potassium chloride IVPB 10 mEq/100 mL in water (0.1 mEq/mL premix) 10 mEq intravenous PRN Parul R Jeb, WAREHOUSE LOGISTICS MANAGER-AGRICULTURAL CHEMICALS INSPECTOR sodium phosphate 20 mmol in sodium chloride 0.9 % 250 mL IVPB 20 mmol intravenous PRN Parul R Jeb, WAREHOUSE LOGISTICS MANAGER-AGRICULTURAL CHEMICALS INSPECTOR Or sodium phosphate 20 mmol in sodium chloride 0.9 % 100 mL IVPB 20 mmol intravenous PRN Parul R Jeb, WAREHOUSE LOGISTICS MANAGER-AGRICULTURAL CHEMICALS INSPECTOR Or sod phos di, mono-K phos mono (K-PHOS NEUTRAL) 250 mg tablet 2 tablet 2 tablet oral PRN Parul R Jeb, WAREHOUSE LOGISTICS MANAGER-AGRICULTURAL CHEMICALS INSPECTOR sodium chloride 0.9 % infusion 10 mL/hr intravenous Continuous PRN Parul R Jeb, WAREHOUSE LOGISTICS MANAGER-AGRICULTURAL CHEMICALS INSPECTOR sodium chloride 0.9 % infusion 10 mL/hr intravenous Continuous PRN Parul R Jeb, WAREHOUSE LOGISTICS MANAGER-AGRICULTURAL CHEMICALS INSPECTOR sodium chloride 0.9 % infusion 10 mL/hr intravenous Continuous PRN Parul R Jeb, WAREHOUSE LOGISTICS MANAGER-AGRICULTURAL CHEMICALS INSPECTOR Home Meds: Prior to Admission medications Medication [...] be continued indefinitely given significant disease in [place] coronary arteries. Optimize medical therapy for coronary [...] be continued indefinitely given significant disease in [place] coronary arteries. Optimize medical therapy for coronary [...] Acute on chronic HFrEF Elevated HS troponin 19041 ASCVD h/o CABG and s/p PCI Cx [...] 2,000 Units intravenous PRN Parul R Jeb, WAREHOUSE LOGISTICS MANAGER-AGRICULTURAL CHEMICALS INSPECTOR heparin infusion 98525 units/500 mL in 0.45% NaCl (50 units/mL premix) 300-3,500 Units/hr intravenous Continuous Parul R Jeb, WAREHOUSE LOGISTICS MANAGER-AGRICULTURAL CHEMICALS INSPECTOR 16 mL/hr at 10/13/23 0013 800 Units/hr at 10/13/23 0013 magnesium sulfate IVPB 2000 mg/50 mL in iso-osmotic water (40 mg/mL premix) 2,000 mg intravenous PRN Parul R Jeb, WAREHOUSE LOGISTICS MANAGER-AGRICULTURAL CHEMICALS INSPECTOR Or magnesium sulfate IVPB 4000 mg/100 mL in iso-osmotic water (40 mg/mL premix) 4,000 mg intravenous PRN Parul R Jeb, WAREHOUSE LOGISTICS MANAGER-AGRICULTURAL CHEMICALS INSPECTOR midodrine (PROAMATINE) tablet 5 mg 5 mg oral Q8H PRN Parul R Jeb, WAREHOUSE LOGISTICS MANAGER-AGRICULTURAL CHEMICALS INSPECTOR potassium chloride (K-TAB,KLOR-CON) CR tablet 20-50 mEq 20-50 mEq oral PRN Parul R Jeb, WAREHOUSE LOGISTICS MANAGER-AGRICULTURAL CHEMICALS INSPECTOR Or potassium chloride (KAYCIEL) 20 mEq/15 mL solution 20-50 mEq 20-50 mEq oral PRN Parul R Jeb, WAREHOUSE LOGISTICS MANAGER-AGRICULTURAL CHEMICALS INSPECTOR potassium chloride IVPB 10 mEq/50 mL in water (0.2 mEq/mL premix) 10 mEq intravenous PRN Parul R Jeb, WAREHOUSE LOGISTICS MANAGER-AGRICULTURAL CHEMICALS INSPECTOR Or potassium chloride IVPB 10 mEq/100 mL in water (0.1 mEq/mL premix) 10 mEq intravenous PRN Parul R Jeb, WAREHOUSE LOGISTICS MANAGER-AGRICULTURAL CHEMICALS INSPECTOR ranolazine (RANEXA) 12 hr tablet 1,000 mg 1,000 mg oral BID Parul R Jeb, WAREHOUSE LOGISTICS MANAGER-AGRICULTURAL CHEMICALS INSPECTOR rosuvastatin (CRESTOR) tablet 20 mg 20 mg oral Daily Parul R Jeb, WAREHOUSE LOGISTICS MANAGER-AGRICULTURAL CHEMICALS INSPECTOR sodium phosphate 20 mmol in sodium chloride 0.9 % 250 mL IVPB 20 mmol intravenous PRN Parul R Jeb, WAREHOUSE LOGISTICS MANAGER-AGRICULTURAL CHEMICALS INSPECTOR Or sodium phosphate 20 mmol in sodium chloride 0.9 % 100 mL IVPB 20 mmol intravenous PRN Aprul R Jeb, WAREHOUSE LOGISTICS MANAGER-AGRICULTURAL CHEMICALS INSPECTOR Or sod phos di, mono-K phos mono (K-PHOS NEUTRAL) 250 mg tablet 2 tablet 2 tablet oral PRN Parul R Jeb, WAREHOUSE LOGISTICS MANAGER-AGRICULTURAL CHEMICALS INSPECTOR sodium chloride 0.9 % infusion 10 mL/hr intravenous Continuous PRN Parul Hassann, WAREHOUSE LOGISTICS MANAGER-AGRICULTURAL CHEMICALS INSPECTOR sodium chloride 0.9 % infusion 10 mL/hr intravenous Continuous PRN Parul R Jeb, WAREHOUSE LOGISTICS MANAGER-AGRICULTURAL CHEMICALS INSPECTOR sodium chloride 0.9 % infusion 10 mL/hr intravenous Continuous PRN Parul R Jeb, WAREHOUSE LOGISTICS MANAGER-AGRICULTURAL CHEMICALS INSPECTOR Laboratory CBC: BMP: Troponin I Physical Exam [...] This note was completed using a voice leasing associate system. Every effort was made to ensure accuracy. However, inadvertent computerized leasing associate errors may be present. [employer] Work Phone: 10-12-2023 History of Present illness Narrative Images from the original note were not included. [facility] Significant Event Note I am on-call covering for my group today. I am at [facility]. This patient presented to the ER at [facility]. I was paged, called back promptly, spoke to ER provider, reviewed EMR, discussed case, provided recommendations as detailed below. Subjective: 67 year old patient presented to the ER at [facility] with generalized weakness and malaise and shortness [...] of 35-40% Atherosclerotic heart disease of the [place] coronary arteries with stable angina pectoris History of CABG and subsequent HARRY Profound hypokalemia 2.1 in the ER at [facility] receiving replacements COVID test was negative at [facility] Given profound hypokalemia and risk for spontaneous malignant arrhythmia recommend admission to the ICU or CCU Access transfer team is working on the transfer arrangements and logistics as well as bed availability here at [place] Recommend to the ER that patient needs to receive ICU dosing oral and IV potassium to replenish her total body potassium depletion She is on torsemide at home and she will need to be on a potassium supplement She will receive anti heart failure therapies while here in [facility] as well as medical therapy for CAD and cardiomyopathy I discussed with ER provider and access transfer team as well as updated the night team covering here at [facility] and the arrangements have been made for patient to be transferred pending the logistics and bed availability Please contact our cardiology service if any changes in patient's status overnight Thank you Jonathan Pizarro DO, FACC, FACOI This note was completed using a voice leasing associate system. Every effort was made to ensure accuracy. However, inadvertent computerized leasing associate errors may be present. documented in this encounter [facility] 08-22-2023 Telephone encounter Note Patient left [...] not need a different prescription sent in. [facility] 08-22-2023 Miscellaneous Notes Patient left message on [...] prescription sent in. documented in this encounter [facility] 08-21-2023 History of Present illness Narrative Reason [...] Bilateral FRANCIS/PVR study performed on 05-29-2023 at [facility] showed: FRANCIS is falsely elevated suggesting medial [...] 2-5 bilateral are flexible/reducible. SHOE GEAR EVALUATION: [employer] shoes. X-ray: Foot: 04-08-2023: LEFT FOOT x-rays, [...] decisions I made. documented in this encounter [facility] 08-04-2023 Evaluation note Encounter Date Diagnosis Assessment Notes Jul, PAD (peripheral artery disease) (ICD-10 - I73.9) We reviewed her noninvasive arterial studies obtained at outside facility and [facility] in [place] which indicate mild to moderate arterial disease [...] - I96) Jul, Non-smoker (ICD-10 - Z78.9) [employer]vant [employer] Other 12-13-2023 History of Present illness Narrative* Kimberly Wright - 06/25/2023 10:40 AM EST Ortho Nurse - Established Patient Intake Room#: 1 --- PNEUMATIC JACKETER for Left knee/leg pain. Hip surgery was [...] 06/25/2023 11:28 AM Patient: Ashvin Rene MR#: [id number] : 1955 Age: 67 y.o. Referring Physician: [...] capsule by mouth daily. Ergocalciferol 1.25 MG (22002 UT) capsule Take 1 capsule by mouth [...] 06/25/2023 11:28 AM Patient: Ashvin Rene MR#: [id number] : 1955 Age: 67 y.o. Referring Physician: [...] [x]cane, []bracing Are you followed by a tree surgeon helper? [x] [] Name: Dr. Ryan Gordon Are [...] capsule by mouth daily. Ergocalciferol 1.25 MG (28038 UT) capsule Take 1 capsule by mouth [...] daily., Disp: , Rfl: Ergocalciferol 1.25 MG (11847 UT) capsule, Take 1 capsule by mouth [...] Rfl: No Known [facility]* Encounter Date Diagnosis Assessment Notes [...] Other Skin wound mate roque was printed Relevant e-solution Other 02-02-2022 Note [id number]02-01-2022 NoteEducation Materials Obstetrics and Gynecology Edema [...] fluid you drink (fluid restriction). ? Take bkkt-srw-sxwmtyz and prescription medicines only as told by [...] provider. Document Revised: 07/03/2018 Document Reviewed: 07/18/2017 OnePageCRM Patient Education ? 2019 [employer].[facility] [id number] Note [facility] Clinical Discharge Summary PERSON INFORMATION Name ASHVIN RENE Age 65 Years 1955 Sex FEMALE Language South African PCP TUSHAR SOLANO JR. Marital Status Med Service Med/Surg Acct# Arrival 08/06/2021 17:10:50 Visit Reason ANEMIA, ELEVATED TROPONIN Acuity LOS 007 15:53 Address: [address] [place] [address] Comment: PROVIDER INFORMATION VITALS INFORMATION Vital Sign [...] [facility], [address] [place] [id number], [phone] ferrous sulfate (ferrous sulfate 325 mg (65 mg elemental iron) oral tablet) 1 tab(s) Oral 2 times aday for 30 Days. Refills: 1. torsemide (torsemide 20 mg oral tablet) 1 tab(s) Oral every other day for 30 Days. [facility] Refills: 1. Medications That Were Updated - Follow Below Instructions Other Medications Updated: fludrocortisone (fludrocortisone 0.1 mg oral tablet) 0.5 tab(s) Oral every day. TAKE IN MORNING MEAL, HOLD IF STANDING BP [id number]. Medications to Continue That Have Not Changed [...] mg oral tablet) potassium chloride (Potassium Chloride (Zcd-Ofpz-Leo 10) 10 mEq oral tablet, extended release) [...] range between ( 1.3 and 2.9 ) Owen Abs#: 0.4 x103/mcL -- Normal range between ( 0.0 and 0.8 ) Auto Baso %: 1.0 % -- Normal range between ( 0.2 and 2.0 ) Auto Owen %: 7 % -- Normal range between [...] 111 (more content not included)...[facility] [id number] NoteDATE OF PROCEDURE: 08/10/2021 SURGEON: Noe Reed MD ANESTHESIA: Rony Ordonez MD ([facility]) PREOPERATIVE DIAGNOSIS: GI-bleed. POSTOPERATIVE DIAGNOSES: 1. Normal [...] well. She will be returned to the [address] [place] [address] floor. We will await the pathology results. Noe Reed M.D. JOB #: [id number] CC: Tushar Solano MD [Electronically Signed on: 08/22/2021 08:54 EST] Noe Reed MD [Verified on: 08/22/2021 08:54 EST] Noe Reed MD [Transcribed on: 08/10/2021 12:12 EST] [facility]09-30-2021 Evaluation note* Encounter Date Diagnosis Assessment Notes Treatment Notes Treatment Clinical Notes Mar, Nausea & vomiting (ICD-10 - R11.2) Nausea and vomiting: adult material was printed Mar, Epigastric pain (ICD-10 - R10.13) Relevant e-solution Other 05-28-2021 NoteHNO ID: [id number] Author: Jaimee Pierce RN Service: Care Management [...] 08, 2020 TIME: 10:58 AM PAGER/CONTACT #: [phone]-28[facility]2021 NoteHNO ID: [id number] Author: Jaimee Pierce RN Service: Care Management [...] 08, 2020 TIME: 9:57 AM PAGER/CONTACT #: [phone] [address] [facility]05-27-2021 NoteHNO ID: [id number] Author: Nay Joseph MD Service: ? Author [...] No further targets for coronary revascularization. 2. detention DAPT STAFF PHYSICIAN: Dirk Joseph MD DATE OF SERVICE: 12/07/2020 TIME OF SERVICE: 6:19 PM (Procedure performed with Dr. Milli Foster and Dr. Erika Kohler)[facility]05-27-2021 NoteProcedure (CATHMN) CLINTONASHVIN ([id number]) 1955 F Date Time Provider Department 12/07/20 [...] Could not cross stenoses with Finecross or Fund Recsba flex 135 mm microcatheters. 7Fr Telescope guide [...] No further targets for coronary revascularization. 2. detention DAPT STAFF PHYSICIAN: Dirk Joseph MD DATE OF SERVICE: 12/07/2020 TIME OF SERVICE: 6:19 PM (Procedure performed with Dr. Milli Foster and Dr. 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 [facility]05-27-2021 NoteHNO ID: [id number] Author: Milli Foster MD Service: Cardiovascular Medicine [...] across the lesion- we tried with a Fund Recsba flex microcatheter which would also not cross [...] Milli Foster MD Fellow, Interventional Cardiology Pager: [phone] 12/08/2020 11:34 [facility]05-14-2021 NoteHNO ID: [id number] Author: Nay Joseph MD Service: ? Author Type: Physician Type: Progress Notes Filed: 11/29/2020 7:54 AM Note Text: [facility] Department of Cardiovascular Medicine SECTION OF INTERVENTIONAL CARDIOLOGY OUTPATIENT VISIT DATE November 23, 2020 OUTPATIENT VISIT TYPE NEW PRIMARY CARE PHYSICIAN: Tushar Solano Jr, DO ([facility]) [address] [place] [address] [place] [address] REFERRING PHYSICIAN: Waqas Mabry MD [address] [place] [address] [facility] [address] CHIEF COMPLAINT: No chief complaint on file. [...] resolved after CABG) 2016 CVA and (?) [place] 05/24/16 Echo ? Normal left ventricular end-diastolic [...] area of anterior/anterolateral (more content not included)... [facility]04-29-2021 Miscellaneous Notes* Telephone Encounter - Ashvin Diaz - 11/09/2020 10:10 AM EDT Patient: Ashvin Rene Date of : 1955 Patient phone number: [phone] Referring Provider for the encounter: Dr Waqas Mabry Requesting Provider: Cardiology Reason for requesting visit (RFV/signs and symptoms/diagnosis): 2nd Opinion - Severe CAD Person calling: caregiver: ERIC Return call to: self Medical Records/Insurance Card scanned into Floop: Yes Comments: N/A documented [facility] noteNo InformationNort [employer] Other Evaluation noteNo assessment information available 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)- Primary Gangrene (CMS/HCC) Gangrene Pain in toe of right foot Pain in soft tissues of limb Arteriosclerosis of arteries of extremities (CMS/HCC) documented in this encounter [facility]* Diagnosis Stenosis of left carotid artery Occlusion and stenosis of carotid artery without mention of cerebral infarction Stenosis of left carotid artery- Primary Occlusion and stenosis of carotid artery without mention of cerebral infarction [facility] Diagnosis Decompensated heart failure (CMS-HCC)- Primary NSTEMI (non-ST elevated myocardial infarction) (CMS-HCC) Acute myocardial infarction, subendocardial infarction, episode of care unspecified Decompensated heart failure (CMS-HCC) NSTEMI (non-ST elevated myocardial infarction) (CMS-HCC) Acute myocardial infarction, subendocardial infarction, episode of care unspecified NSTEMI (non-ST elevated myocardial infarction) ([facility]-HCC) Acute myocardial infarction, subendocardial infarction, episode of care unspecified documented in this encounter [facility] Narrative - Reported* Type Description Date Medical History Cholesterol Medical History heart disease Medical History hypertension Surgical History left hip Surgical History stomach Surgical History heart stent Surgical History bypass Surgical History gastric bypass Hospitalization History see above Relevant e-solution Other InstructionsNot on filedocumented in this encounter [facility]ructionsNot on filedocumented in this encounter [facility] HospitalReason for referral (narrative)* Consultation (Routine) - Pending Review Specialty Diagnoses / Procedures Referred By Teofilo serrato Referred To Contact Cardiology Diagnoses NSTEMI (non-ST elevated myocardial infarction) ([facility]-HCC) Decompensated heart failure ([facility]-HCC) Kallie Roman MD [address] [facility] [place] [address] [facility] [address] [place] [address] Referral ID Status Reason Start Date Expiration Date Visits Requested Visits Authorized [id number] Pending Review Specialty Services Required 10/15/2023 10/14/2024 1 1 * Misc (Routine) - Pending Review Specialty Diagnoses / Procedures Referred By Contac t Referred To Contact Procedures Discharge Follow-Up Kallie Roman MD [address], [address] [place] [id number] Referral ID Status Reason Start Date Expiration Date V isits Requested Visits Authorized [id number] Pending Review 10/15/2023 10/14/2024 1 1 * Misc (Routine) - Pending Review Specialty Diagnoses / Procedures Referred By Contac t Referred To Contact Diagnoses NSTEMI (non-ST elevated myocardial infarction) ([facility]-HCC) Decompensated heart failure ([facility]-HCC) Procedures Follow-up with primary care provider Kallie Roman MD [address], [address] [place] [address] Referral ID Status Reason Start Date Expiration Date V isits Requested Visits Authorized [id number] Pending Review 10/15/2023 10/14/2024 1 1 * Misc (Routine) - Pending Review Specialty Diagnoses / Procedures Referred By Contac t Referred To Contact Procedures No dressing needed Kallie Roman MD [address], [address] [place] [address] Referral ID Status Reason Start Date Expiration Date V isits Requested Visits Authorized [id number] Pending Review 10/15/2023 10/14/2024 1 1 * Misc (Routine) - Pending Review Specialty Diagnoses / Procedures Referred By Contac t Referred To Contact Procedures Adult diet Kallie Roman MD [address], [address] [place] [address] Referral ID Status Reason Start Date Expiration Date V isits Requested Visits Authorized [id number] Pending Review 10/15/2023 10/14/2024 1 1 [facility] Advance Directives No Advanced Directives Records [...] worsening of your eyesight. Please call your implant coordinator during normal business hours. If after business hours call Dr. Deng Humphreys at his cell [phone] or his office [phone]. Summary Purpose Reason for Referral Specialty Diagnoses / Procedures Referred By Teofilo serrato Referred To Contact Diagnoses Stenosis of left carotid artery Procedures Vas carotid duplex bilateral Mariama Veras MD [facility], [address] [place] [address] [address] Phone: [phone] Referral ID Status Reason Start Date Expiration Date Visits Re quested Visits Authorized [id number] Closed 10/06/2023 10/05/2024 1 1 Specialty Diagnoses / Procedures Referred By Teofilo serrato Referred To Contact Diagnoses Left knee pain, unspecified chronicity Norman Braga MD [address] [place] [address] Referral ID Status Reason Start Date Expiration Date V isits Requested Visits Authorized [id number] New Request 06/25/2023 07/19/2024 1 1 Scheduling Instructions . Specialty Diagnoses / Procedures Referred By Teofilo serrato Referred To Contact Diagnoses Left knee pain, unspecified chronicity Procedures XR KNEE LEFT 4+ VIEWS Norman Braga MD [address] [place] [address] Referral ID Status Reason Start Date Expiration Date V isits Requested Visits Authorized [id number] Pending Review 06/18/2023 07/12/2024 1 1 Specialty Diagnoses / Procedures Referred By Teofilo serrato Referred To Contact Diagnoses Left knee pain, unspecified chronicity Procedures XR BONE LENGTH STUDY Norman Braga MD [address] [place] [address] Referral ID Status Reason Start Date Expiration Date V isits Requested Visits Authorized [id number] Pending Review 06/18/2023 07/12/2024 1 1 Additional Source Comments Source Comments (unrecognize d section and content) In the event this informatio n is protected by the Federal Confidentiality of Alcohol and Drug Abuse Patient Records regulations: The Federal rules restrict any use of the information to criminally investigate or prosecute any alcohol or drug abuse patient.[facility] Reason for Visit (unrecogniz ed section and content) Reason Comments External Referrals/resources Specialty Diagnoses / Procedures Referred By Contac t Referred To Contact Diagnoses Left knee pain, unspecified chronicity Procedures XR BONE LENGTH STUDY Norman Braga MD [address] [place] [address] Referral ID Status Reason Start Date Expiration Date V isits Requested Visits Authorized [id number] Pending Review 06/18/2023 07/12/2024 1 1 Reason Comments Pain Reason Onset Date Comments Santyl 08/22/2023 Specialty Diagnoses / Procedures Referred By Contac t Referred To Contact Diagnoses Decompensated heart failure (CMS-HCC) CHF (congestive heart failure) (CMS-HCC) Decompensated Heart Failure, Severe Hypokalemia Jonathan Pizarro DO [address] [place] [address] Referral ID Status Reason Start Date Expiration Date Visits Re quested Visits Authorized [id number] 1 1 INFORMATION SOURCE (unrecogn ized section and content) DATE CREATED AUTHOR 03/12/2021 [facility] DATE CREATED AUTHOR AUTHOR'S ORGANIZ ATION 08/13/[address] [facility] DATE CREATED AUTHOR AUTHOR'S ORGANIZ ATION 09/26/2021 [facility] DATE CREATED AUTHOR AUTHOR'S ORGANIZ ATION 10/20/2022 [facility] DATE CREATED AUTHOR AUTHOR'S ORGANIZ ATION [facility] DATE CREATED AUTHOR AUTHOR'S ORGANIZ ATION 08/20/2023 [facility] DATE CREATED AUTHOR AUTHOR'S ORGANIZ ATION 08/22/2023 [facility] DATE CREATED AUTHOR AUTHOR'S ORGANIZ ATION 10/16/2023 [facility] DATE CREATED AUTHOR AUTHOR'S ORGANIZ ATION 10/18/2023 [facility] DATE CREATED AUTHOR AUTHOR'S ORGANIZ ATION 10/25/2023 [facility] Care Teams (unrecognized sec tion and [...] Provider Active ZAC Renae Attending Provider Active Progressive Care Manager Relationship Specialty Start Date End Date Tushar Solano Jr., DO [address] [place] [address] PCP - General Internal Medicine 05/28/23 Progressive Care Manager Relationship Specialty Start Date End Date Tushar Solano Jr., DO [address] [place] [address] PCP - General Internal Medicine 05/28/23 Progressive Care Manager Relationship Specialty Start Date End Date Tushar Solano MD [address] [place] [address] PCP - General Internal Medicine 04/08/23 Progressive Care Manager Relationship Specialty Start Date End Date Tushar Solano MD [address] [place] [phone] PCP - General Internal Medicine 04/08/23 Progressive Care Manager Relationship Specialty Start Date End Date Tushar Solano MD [address] [place] [phone] PCP - General Internal Medicine 04/08/23 Progressive Care Manager Relationship Specialty Start Date End Date Tushar Solano Jr., DO [address] [place] [address] PCP - General Internal Medicine 05/24/16 Progressive Care Manager Relationship Specialty Start Date End Date Tushar Solano Jr., DO [address] [place] [address] [phone] PCP - General Internal Medicine 05/24/16 Progressive Care Manager Relationship Specialty Start Date End Date Tushar Solano Jr., DO [address] [place] [address] [phone] PCP - General Internal Medicine 05/24/16 Goals [...] Medication Order 10/13/2023 10/14/2023 10/15/2023 heparin infusion [id number] units/500 mL in 0.45% NaCl (50 units/mL [...] RN)0852 (SEP Unhold - Provider: Wil Boyce APRN-AGRICULTURAL CHEMICALS INSPECTOR)0900 (Stop Bag - Provider: Gely Chua RN - Comment: off in bolt labeler) PRN Medication Order 10/13/2023 10/14/2023 10/15/2023 acetaminophen [...] mg/dL after initial treatment, repeat treatment. 0729 ([facility] Hold - Provider: Automatic Transfer Provider - Reason: Patient not available)0917 ([facility] Unhold - Provider: Automatic Transfer Provider) dextrose 5 % (D5W) infusion 100 mL/hr, intravenous, Continuous PRN, blood glucose less than 70 mg/dL, Starting on 10/12/23 at 2321, Use immediately following dextrose 50% or glucagon treatment for patients who are unconscious or NPO. Contact prescriber for additional orders. If blood glucose is not greater than 70 mg/dL after initial treatment, repeat treatment. 0729 ([facility] Hold - Provider: Automatic Transfer Provider - Reason: Patient not available)0917 ([facility] Unhold - Provider: Automatic Transfer Provider) [...] treatment. VESICANT (RED) Warning: HYPERTONIC solution. 07 ([facility] Hold - Provider: Automatic Transfer Provider - Reason: Patient not available)09 ([facility] Unhold - Provider: Automatic Transfer Provider) diphenhydrAMINE (BENADRYL) injection 50 mg(Linked Group 2) 50 mg, intravenous, As needed, for previously documented contrast allergy, Starting on Fri10/13/23 at 1118, Scheduling/ADT, Administer one hour prior to procedure Look-alike/sound-alike medication - verify indication for use. 07 ([facility] Hold - Provider: Automatic Transfer Provider - Reason: Patient not available)09 ([facility] Unhold - Provider: Automatic Transfer Provider) [...] mg/dL after initial treatment, repeat treatment. 07 ([facility] Hold - Provider: Automatic Transfer Provider - Reason: Patient not available)0917 ([facility] Unhold - Provider: Automatic Transfer Provider) [...] (See Alternative - Provider: Gely Chua, RN)0729 ([facility] Hold - Provider: Automatic Transfer Provider - Reason: Patient not available)0917 ([facility] Unhold - Provider: Automatic Transfer Provider) [...] medication - verify indication for use. 07 ([facility] Hold - Provider: Automatic Transfer Provider - Reason: Patient not available)09 ([facility] Unhold - Provider: Automatic Transfer Provider) [...] potassium levels 0251 (See Alternative - Provider: aSe Santiago RN)0830 (See Alternative - Provider: Gely Chua, RN)1224 (See Alternative - Provider: Gely Chua, RN) 0729 ([facility] Hold - Provider: Automatic Transfer Provider - Reason: Patient not available)0917 ([facility] Unhold - Provider: Automatic Transfer Provider) [...] over a minimum of 1 hour. 0729 ([facility] Hold - Provider: Automatic Transfer Provider - Reason: Patient not available)0917 ([facility] Unhold - Provider: Automatic Transfer Provider) [...] 1.2 = 40 mEq VESICANT (YELLOW) 0729 ([facility] Hold - Provider: Automatic Transfer Provider - Reason: Patient not available)0917 ([facility] Unhold - Provider: Automatic Transfer Provider) [...] medication - verify indication for use. 0729 ([facility] Hold - Provider: Automatic Transfer Provider - Reason: Patient not available)0917 ([facility] Unhold - Provider: Automatic Transfer Provider) [...] with a full glass of water. 0729 ([facility] Hold - Provider: Automatic Transfer Provider - Reason: Patient not available)0917 ([facility] Unhold - Provider: Automatic Transfer Provider) sodium chloride 0.9 % flush 3 mL 3 mL, intravenous, As needed, line care, before and after each intermittent use, Starting on Fri10/14/23 at 0913 sodium chloride 0.9 % infusion 10 mL/hr, intravenous, Continuous PRN, to maintain patency of lines, Starting on 10/12/23 at 2321, Line #1 0729 ([facility] Hold - Provider: Automatic Transfer Provider - Reason: Patient not available)0917 ([facility] Unhold - Provider: Automatic Transfer Provider) sodium chloride 0.9 % infusion 10 mL/hr, intravenous, Continuous PRN, to maintain patency of lines, Starting on 10/12/23 at 2321, Line #2 0729 ([facility] Hold - Provider: Automatic Transfer Provider - Reason: Patient not available)09 ([facility] Unhold - Provider: Automatic Transfer Provider) sodium chloride 0.9 % infusion 10 mL/hr, intravenous, Continuous PRN, to maintain patency of lines, Starting on 10/12/23 at 2321, Line #3 0729 ([facility] Hold - Provider: Automatic Transfer Provider - Reason: Patient not available)09 ([facility] Unhold - Provider: Automatic Transfer Provider) [...] complete. Infuse using central line access. 728 ([facility] Hold - Provider: Automatic Transfer Provider - Reason: Patient not available)09 ([facility] Unhold - Provider: Automatic Transfer Provider) [...] level 4 hours after infusion complete. 07 ([facility] Hold - Provider: Automatic Transfer Provider - Reason: Patient not available)09 ([facility] Unhold - Provider: Automatic Transfer Provider) [...] level 0.45 to 0.5 mmol/L, Starting on [place] 10/12/23 at 2321, Use premix solution. Default [...] As needed, for potassium replacement, Starting on [place] 10/12/23 at 2321, Progress to oral potassium [...] BE BASED ON THE PRIMARY CLINICAL RECORDS. [facility] [email or web address] [facility]. provides no warranty or guarantee of the accuracy or completeness of information in this document.
[2023-11-04] MEDS: 0.9 % SODIUM CHLORIDE 1,000 ML 75 ML IV ×2 (04:55→17:08)
[2023-11-04 05:18] LABS: Basophils Percent Auto 0.3 % (0.2-2.0); Eosinophils Percent Auto 0.3 % (0.9-7.0); Hematocrit 40.2 % (36.0-48.0); Hemoglobin 12.2 g/dL (12.0-16.0); Immature Granulocytes Abs Auto 0.04 10^3/uL (0.00-0.03); Immature Granulocytes Pct Auto 0.4 % (0.0-0.5); Lymphocytes Absolute Auto 1.9 10^3/uL (1.2-3.8); Lymphocytes Percent Auto 20.9 % (20.5-60.0); Mean Corpuscular HGB Conc 30.3 g/dL (29.9-35.2); Mean Corpuscular Hemoglobin 33.9 pg (26.7-34.0); Mean Corpuscular Volume 111.7 fL (81.0-99.0); Mean Platelet Volume 10.2 fL (9.5-13.5); Monocytes Absolute Auto 0.6 10^3/uL (0.3-0.8); Monocytes Percent Auto 6.4 % (1.7-12.0); Neutrophils Absolute Auto 6.4 10^3/uL (1.4-6.5); Neutrophils Percent Auto 71.7 % (43.0-75.0); Platelet Count 172 10^3/uL (150-450); Red Cell Distribution Width 13.1 % (11.0-15.0); White Blood Count 8.9 10^3/uL (4.0-11.0)
[2023-11-04 06:45] LABS: Alanine Aminotransferase 37 U/L (14-59); Albumin Globulin Ratio 0.7; Albumin Level 2.4 g/dL (3.4-5.0); Alkaline Phosphatase 74 U/L (46-116); Anion Gap 17.9; Aspartate Amino Transferase 39 U/L (15-37); BUN Creatinine Ratio 29.7; Bilirubin Total 0.4 mg/dL (0.2-1.0); Calcium 8.6 mg/dL (8.5-10.1); Carbon Dioxide 21.5 mmol/L (21.0-32.0); Chloride 105 mmol/L (98-107); Estimated GFR (African America 36 (>=60); Estimated GFR (Non-African Ame 29 (>=60); Globulin 3.3 g/dL; Glucose 135 mg/dL (74-106); Potassium 4.4 mmol/L (3.5-5.1); Sodium 140 mmol/L (136-145); Total Protein 5.7 g/dL (6.4-8.2)
[2023-11-04] MEDS: MORPHINE SULFATE 2 MG/ML SYRINGE IV (08:45)
[2023-11-04] MEDS: OMEPRAZOLE 40 MG CAPSULE.DR PO (08:48)
[2023-11-04] MEDS: DULOXETINE HCL 30 MG CAPSULE.DR PO (08:48)
[2023-11-04] MEDS: MONTELUKAST SODIUM 10 MG TABLET PO (08:48)
[2023-11-04] MEDS: LIOTHYRONINE SODIUM 5 MCG TABLET PO (08:48)
[2023-11-04] MEDS: CLOPIDOGREL BISULFATE 75 MG TABLET PO (08:48)
[2023-11-04] MEDS: FLUDROCORTISONE ACETATE 0.1 MG TABLET 0.0500000000000000028 MG PO (08:48)
[2023-11-04] MEDS: SUCRALFATE 1 GM TABLET PO ×2 (08:48→20:48)
[2023-11-04] MEDS: PREGABALIN 50 MG CAPSULE PO ×2 (08:48→21:27)
[2023-11-04] MEDS: FAMOTIDINE 20 MG TABLET 40 MG PO (08:48)
[2023-11-04] MEDS: RANOLAZINE 500 MG TAB.ER.12H 1000 MG PO (08:49)
--- NOTE | 2023-11-04 09:49 | XR_ITS ---
The [address] [address] Patient Name: ASHVIN RENE MRN: [id number] date: 1955 Sex: F Assigned Patient Location: [place] Current Patient Location: [place] Accession/Order Number: [id number] Exam Date: 11/04/2023 10:04 Report Date: 11/04/2023 10:54 At the request of: JAIME CHRISTENSEN Procedure: XR humerus RT EXAM: XR humerus RT, XR shoulder RT min 2V 11/04/2023 FINDINGS: AP and lateral views of the right humerus as well as internal rotation, external rotation, and scapular Y type views for a total of 5 images obtained. HISTORY: upper arm pain after fall XR/XR humerus RT IMPRESSION: 1. Moderate to severe background generalized osteopenia. 2. Old healed right second through fourth rib fracture deformities are noted incidentally. 3. Mild arthritic changes about the right shoulder girdle and right elbow are noted. Antecubital Angiocath placement noted. 4. No acute fracture or dislocation involving the right humerus. No acute fracture or dislocation involving the right shoulder. Electronically authenticated by: ANA DELUNA Date: 11/04/2023 10:54
--- NOTE | 2023-11-04 09:49 | XR_ITS ---
The [address] [address] Patient Name: ASHVIN RENE MRN: [id number] date: 1955 Sex: F Assigned Patient Location: [place] Current Patient Location: [place] Accession/Order Number: [id number] Exam Date: 11/04/2023 10:04 Report Date: 11/04/2023 10:54 At the request of: JAIME CHRISTENSEN Procedure: XR shoulder RT min 2V EXAM: XR humerus RT, XR shoulder RT min 2V 11/04/2023 FINDINGS: AP and lateral views of the right humerus as well as internal rotation, external rotation, and scapular Y type views for a total of 5 images obtained. HISTORY: upper arm pain after fall XR/XR shoulder RT min 2V IMPRESSION: 1. Moderate to severe background generalized osteopenia. 2. Old healed right second through fourth rib fracture deformities are noted incidentally. 3. Mild arthritic changes about the right shoulder girdle and right elbow are noted. Antecubital Angiocath placement noted. 4. No acute fracture or dislocation involving the right humerus. No acute fracture or dislocation involving the right shoulder. Electronically authenticated by: ANA DELUNA Date: 11/04/2023 10:54
--- NOTE | 2023-11-04 09:51 | P.HP_ITS ---
<Statement entered by Jolene Ellis, - 11/04/23 13:30> I have also seen and examined patient at the time admission and agree with the above findings and plan of care. HPI H&P: HPI History of Present Illness Chief complaint: FALL HIP PAIN PELVIC FRACTURE SACRAL FRACTURE Narrative: 11/04/23 0935 This is a 67-year-old female patient with a complicated past medical history including hypothyroidism, hypotension, GERD, CAD s/p CABG x 2 in 2012, recent NSTEMI last month with reocclusion of the SVG to RCA and medically managed, systolic heart failure, and history of CVA; who presented to the ED early this morning after suffering a mechanical fall at home last evening. The patient reports ambulating out to her car around 6 PM using her wheeled walker. She bent down to poultry picker her dog who had gotten out of the house and her walker was unbalanced on the grass and slid out from under her causing her to fall backwards. She landed first on her bottom and then fell back striking her head. She denies any prodromal symptoms including no dizziness, chest pain, shortness of breath, or any other acute symptoms preceding her fall. She was helped into the house by her neighbors but was unable to bear weight without assistance and eventually presented to the ED for further evaluation. Workup in the ED revealed ZAHRAA (BUN 54, CR 1.9, GFR 26), but all other labs were unremarkable. A hip x-ray was unremarkable for acute fracture. CT of the head revealed no acute intracranial process, an air-fluid level within the maxillary sinus and suggestion of cortical irregularity could be concerning for fracture. CT of the cervical spine revealed no acute fracture or dislocations. CT of the left hip revealed acute comminuted left superior and inferior pubic rami fractures close to the urinary bladder and a left sacral ALA fracture. She was admitted early this morning to the hospitalist service as an inpatient with Dr. Pantoja, orthopedic surgeon, on consult. At the time of my exam the patient is resting in bed, slightly restless from pain. She reports the pain medication is adequate to help with her discomfort but the pain is significant when it wears off. She complains of right shoulder and upper humerus pain. She has range of motion to that joint but it is painful to move. There is an obvious divot just distal to the shoulder joint and the patient denies this was there prior to her fall. We will obtain x-rays of the right shoulder and humerus to rule out acute fracture. We will consider more advanced imaging to assess for possible tendon detachment pending clinical course and recommendations from Dr. Pantoja. Opioid HPI Opioid Management Most Recent Opioid Data: Last Pain Scale 4 11/04/23 13:21 Last Pain Assessment 11/04/23 13:17 Last ED Pain Assessment 11/04/23 02:21 Last MAR Pain Assessment 11/04/23 13:21 Last ORT Total Score 3 11/04/23 04:48 Last ORT Risk Category Low Risk 11/04/23 04:48 Review of Systems ROS Status of ROS 10 or more systems reviewed and unremark able except as noted in history and below [facility] Medical History (Updated 11/04/23 @ 12:16 by Mary Barry NP) GERD (gastroesophageal reflux disease) ?K21.9 - Gastro-esophageal reflux disease without esophagitis (ICD-10) Hypotension ?I95.9 - Hypotension, unspecified (ICD-10) Hypothyroidism ?E03.9 - Hypothyroidism, unspecified (ICD-10) CHF (congestive heart failure) ?I50.9 - Heart failure, unspecified (ICD-10) Non-STEMI (non-ST elevated myocardial infarction) ?I21.4 - Non-ST elevation (NSTEMI) myocardial infarction (ICD-10) Stroke ?I63.9 - Cerebral infarction, unspecified (ICD-10) Hip fracture, left ?S72.002A - Fracture of unspecified part of neck of left femur, initial enc ounter for closed fracture (ICD-10) Left tibial fracture ?S82.202A - Unspecified fracture of shaft of left tibia, initial encounter for closed fracture (ICD-10) Surgical History (Updated 11/04/23 @ 10:53 by Mary Barry NP) History of coronary artery bypass graft x 2 ?Z95.1 - Presence of aortocoronary bypass graft (ICD-10) History of right knee joint replacement ?Z96.651 - Presence of right artificial knee joint (ICD-10) Family History (Updated 11/04/23 @ 05:00 by Carolyn Thomas) Other Family history of diabetes mellitus Family history of hypertension Family history of myocardial infarction Social History (Updated 11/04/23 @ 05:02 by Carolyn William) Within the past year, how often did you have a drink containing alcohol: never Score interpretation: A score less than 3 is consistent with normal alcohol consumption. Smoking status: Former smoker Non-prescribed substance use: denies use Previous occupational history: Retired Highest level of school completed/degree received: high school graduate Are you now , , , , never or living with a partner: In a typical week, how many times do you talk on the telephone with family, friends, or neighbors: 3 or more times per week How often do you get together with friends or relatives: 3 or more times per week Little interest or pleasure in doing things: not at all Feeling down, depressed, or hopeless: not at all Feel stressed/tense/nervous/anxious/difficulty sleeping: not at all Do you think of yourself as: straight/heterosexual Gender Identity: female Meds Home Medications and Allergies Home Medications ?Medication ?Instructions ?Recorded ?Confirmed ?Type clopidogrel 75 mg tablet 75 mg PO DAILY 10/12/23 11/04/23 History duloxetine 30 mg capsule,delayed 30 mg PO DAILY 10/12/23 11/04/23 History release famotidine 40 mg tablet 40 mg PO .qhs 10/12/23 11/04/23 History fludrocortisone 0.1 mg tablet 0.05 mg PO DAILY 10/12/23 11/04/23 History liothyronine 5 mcg tablet 10 mcg PO DAILY 10/12/23 11/04/23 History midodrine 10 mg tablet 10 mg PO TID 10/12/23 11/04/23 History montelukast 10 mg tablet 10 mg PO DAILY 10/12/23 11/04/23 History pantoprazole 40 mg tablet,delayed 40 mg PO DAILY 10/12/23 11/04/23 History release pregabalin 50 mg capsule 50 mg PO .qhs 10/12/23 11/04/23 History ranolazine 1,000 mg 500 mg PO Q12H 10/12/23 11/04/23 History tablet,extended release,12 hr rosuvastatin 20 mg tablet 20 mg PO DAILY 10/12/23 11/04/23 History sucralfate 1 gram tablet 1 g PO BID 10/12/23 11/04/23 History trazodone 150 mg tablet 150 mg PO BEDTIME 10/12/23 11/04/23 History bisoprolol fumarate 5 mg tablet 2.5 mg PO DAILY 11/04/23 11/04/23 History calcium citrate 250 mg PO DAILY 11/04/23 11/04/23 History cholecalciferol (vitamin D3) 125 5,000 unit PO TID 11/04/23 11/04/23 History mcg (5,000 unit) capsule collagenase clostridium histo. 250 1 applic topical QPM 11/04/23 11/04/23 History unit/gram topical ointment (Santyl) dapagliflozin propanediol 10 mg 10 mg PO QAM 11/04/23 11/04/23 History tablet (Farxiga) ipratropium bromide 21 mcg (0.03 2 spray intranasal DAILY PRN 11/04/23 11/04/23 History %) nasal spray allergy symptoms midodrine 10 mg tablet 10 mg PO TID PRN hypotension 11/04/23 11/04/23 History sacubitril 24 mg-valsartan 26 mg 0.5 tab PO BID 11/04/23 11/04/23 History tablet (Entresto) spironolactone 25 mg tablet 12.5 mg PO DAILY 11/04/23 11/04/23 History torsemide 20 mg tablet 10 mg PO DAILY 11/04/23 11/04/23 History Allergies Allergy/AdvReac Type Severity Reaction Status Date / Time No Known Drug Allergies Allergy Verified 11/04/23 01:07 Exam Constitutional Vital Signs, click to edit/add: Last Vital Signs Temp 98.2 F 11/04/23 04:59 Pulse 92 H 11/04/23 08:52 Resp 18 11/04/23 08:52 BP 98/60 11/04/23 08:52 Pulse Ox 96 11/04/23 08:52 O2 Del Method Room Air 11/04/23 08:52 Common normals: no apparent distress, oriented x3, alert and well nourished General appearance: cooperative Orientation/consciousness: Yes awake HENMT Common normals: normocephalic, head/scalp atraumatic, hearing grossly normal bilaterally, external nose normal and moist oral mucous membranes Eye Common normals: PERRL, EOMs intact bilaterally, conjunctivae normal and no scleral icterus Alignment: alignment normal Eyelid: eyelids normal Neck & C-Spine Common normals: full ROM, supple and no JVD Chest Common normals: inspection of chest normal Chest: symmetrical chest wall rise Respiratory Common normals: normal respiratory effort, no retractions, no use of accessory muscles and clear to auscultation bilaterally Effort & inspection: able to speak in complete sentences Cardio Common normals: no JVD, regular rate, regular rhythm, S1 normal heart sound, S2 normal heart sound, no gallops, no clicks, no murmurs, no rub and peripheral pulses 2+ throughout GI Common normals: Normal to inspection, nondistended, normoactive bowel sounds present, soft to palpation, non-tender, no hepatosplenomegaly, no masses and no bruits Bladder/kidney exam: bladder normal to palpation Back & Pelvis Common normals: thoracic and lumbar spine normal to inspection Extremity Common normals: normal capillary refill and no pedal edema General: normal exam except as noted; no clubbing and no cyanosis Right upper extremity: shoulder joint (tender, full ROM but painful. Visible divot lateral ) Left lower extremity: hip joint (decreased ROM, very painful groin/pelvis) Neuro [place] Coma Scale: GCS not evaluated Common normals: CN's II-XII intact bilaterally, moves all extremities, no focal motor deficits and no sensory deficits noted Speech: speech normal Motor exam: strength 5/5 throughout Psych Common normals: mental status grossly normal, thought process normal, affect normal and activity/motor behavior normal Results Labs Labs: Short CBC 11/04/23 11/04/23 Range/Units 01:55 04:57 WBC 10.3 8.9 (4.0-11.0) 10^3/uL Hgb 12.5 12.2 (12.0-16.0) g/dL Hct 38.3 40.2 (36.0-48.0) % Plt Count 224 172 (150-450) 10^3/uL BMP 11/04/23 11/04/23 01:55 06:12 Sodium 139 140 Potassium 4.4 4.4 Chloride 102 105 Carbon Dioxide 20.2 L 21.5 BUN 54.0 H 51.0 H Creatinine 1.90 H 1.72 H Glucose 141 H 135 H Calcium 8.9 8.6 Liver Function 11/04/23 Range/Units 06:12 Total Bilirubin 0.4 (0.2-1.0) mg/dL AST 39 H (15-37) U/L ALT 37 (14-59) U/L Alkaline Phosphatase 74 (46-116) U/L Albumin 2.4 L (3.4-5.0) g/dL Urine 11/04/23 Range/Units 03:10 Urine Color Lt. yellow (YELLOW) Urine Clarity Clear (CLEAR) Urine pH 5.5 (5.0-9.0) Ur Specific [place] 1.010 (1.005-1.025) Urine Protein Negative (NEG/TRACE) mg/dL Urine Glucose (UA) Negative (NEGATIVE) mg/dL Pulse Oximetry Attestation: I have reviewed the pertinent pulse oximetry results. ECG Attestation: ?I have reviewed the pertinent ECG results. Interpretation: Sinus tachycardia Septal myocardial infarction, probably old Abnormal ECG Compared to ECG from 10/12/2023 Sinus rhythm no longer present Ventricular premature complexes no longer present ST (T wave) deviation no longer present Possible ischemia no longer present Myocardial infarct finding still present Imaging Hip/Pelvis X-ray: Attestation: I have reviewed the pertinent imaging results. Radiologist's impression: IMPRESSION: No acute osseous abnormality of the left hip. CT scan - head: Attestation: I have reviewed the pertinent imaging results. Radiologist's impression: IMPRESSION: No acute intracranial process. Air-fluid level is seen within the right maxillary sinus with suggestion of cortical irregularity of the right lamina papyracea turning for fracture. Maxillofacial CT can be considered for further evaluation as clinically warranted. CT scan - Cervical spine: Attestation: I have reviewed the pertinent imaging results. Radiologist's impression: IMPRESSION: No fracture or dislocation. CT scan - L Hip: Attestation: I have reviewed the pertinent imaging results. Radiologist's impression: IMPRESSION: Acute comminuted minimally displaced fractures at the left superior and inferior pubic rami with cortical offset of less than 3 mm. Given the proximity of the fractures to the urinary bladder, recommend close clinical attention for any signs and symptoms of urinary bladder injury. Partially visualized nondisplaced fracture at the left sacral ala located lateral to the left sacral foramen. Assessment and Plan Assessment and Plan (1) Pelvic fracture: Assessment and Plan: Acute * Adm inpatient * We expect greater than a 2 midnight stay for medically necessary hospital care * Consult Dr Pantoja, Orthopedic Surgeon - we appreciate his assistance with this pt's care * We defer WB orders to the orthopedic service * PT/OT consults * MS 2mg IVP q3hr, add Oxy IR 5-10 mg for improved pain management * CBC, CMP daily (2) Closed sacral fracture: Assessment and Plan: Acute * See above (3) Right shoulder pain: Assessment and Plan: Acute * Pt c/o R shoulder/upper arm pain pain since fall but did not report it in ED * XR R shoulder/humerus now to r/o fracture * Divot distal to shoulder joint noted - attempt to obtain an MRI to assess for tendon detachment * Pt has several cardiac stents and orthopedic hardware placements in the past * MRI team is investigating if these are amenable to MRI imaging * Consider CT imaging if MRI is not possible, pending recommendation by Dr Pantoja * Ortho c/s (4) ZAHRAA (acute kidney injury): Assessment and Plan: Acute * Suspect d/t dehydration (pt reports poor PO fluid intake x 1 week) and/or addition of new Entresto, spironolactone, and Farxiga medications at [facility] earlier this month * Baseline normal renal fx: BUN 18-22, Cr 0.97, GFR 57 * Hold all renal toxic meds including Farxiga, spironolactone and Entresto * Gentle IVFs w/ NS at 75/hr in pt w/ hx of HFrEF (LVEF 20-25%) * Consider Telenephrology consult pending clinical course * CMP daily (5) Dehydration: Assessment and Plan: Acute * 2/2 to poor oral intake, diuresis on spironolactone * w/ pre-renal azotemia * See ZAHRAA above * CMP daily (6) CHF (congestive heart failure): Assessment and Plan: Chronic * Recent 2D Echo at [facility] on 10/13/23 w/ LVEF of 20-25% * Holding new Farxiga, Entresto and spironolactone d/t ZAHRAA (7) Non-STEMI (non-ST elevated myocardial infarction): Assessment and Plan: Chronic * NSTEMI on 10/12/23 * Medically managed at [facility] * Pt denies any CP, nausea, or SOB * Tele monitoring (8) Hypothyroidism: Assessment and Plan: Chronic * Continue home liothyronine (9) Hypotension: Assessment and Plan: Chronic * Continue home midodrine (once dosing is confirmed by pharmacy) * Continue home florinef (10) GERD (gastroesophageal reflux disease): Assessment and Plan: Chronic * Continue home PPI, famotidine, and sucralfate Urinary Catheter Management Urinary Catheter Management Urethral: Cath placed during this visit: yes Urethral indwelling: Yes Reason for continuing: pelvic fractures Insertion date: 11/04/23
--- NOTE | 2023-11-04 10:35 | CM.NOTE ---
Rounds made with Dr. Ellis. Dr. Ellis explains additional testing to be ordered--CT shoulder. Sujata in agreement. Await further recommendations from Orthopod Consult.
--- NOTE | 2023-11-04 10:40 | SWNOTE1 ---
Possible need for pt to go SNF. SW spoke to case deandra and pt would like [facility]. SW to call [facility] to see if they are taking any [employer] medicare referrals.
[2023-11-04 11:11] LABS: Glucometer 168 mg/dL (74-106)
[2023-11-04] MEDS: OXYCODONE HCL 5 MG TABLET 10 MG PO (11:53)
[2023-11-04] MEDS: INSULIN ASPART 300 UNIT/3 ML PEN SUBQ (11:54)
[2023-11-04] MEDS: MIDODRINE HCL 5 MG TABLET 10 MG PO ×2 (13:20→21:27)
--- NOTE | 2023-11-04 13:53 | SWNOTE1 ---
SW met with pt to discuss dc needs. Pt lives at home alone, she had a fall while she was outside. She voiced frustration as she had her rollator with her, but became unbalanced and fell. Pt does have her son and daughter within 10 miles of her home. Pt also has friends and neighbors who help. Pt's best friend came in while SW was assessing as well. SW spoke to her about the possibility of needing SNF for a short time at discharge. Pt voiced someone already spoke to her about it. She has been to [facility] before and she would like to go back there if needed. SW did explain that she is a precert and SW will check with [facility] to see if they have any openings. Pt voiced understanding. At this time pt denies any other needs. Important Message from Medicare reviewed and discussed with patient. Pt. verbalized understanding and signed the form. Original given to patient and copy placed in patient?s chart. BRIANNA called [facility] and spoke to Laisha. Both [facility] and [facility] are out today. Laisha voiced to send it over and they will review. Referral sent to [facility]. Referral included face sheet, ED note, H&P, case management report, diagnostic imaging, and med list. BRIANNA waiting on ortho note. Once ortho gives weight bearing status, then PT/OT can see.
--- NOTE | 2023-11-04 16:04 | SWNOTE1 ---
BRIANNA received call from Laisha at [facility] and they do not have any beds open until Friday. BRIANNA to check with pt to see if she has an alternate place she would like to go for rehab if it is needed.
--- NOTE | 2023-11-04 16:18 | SWNOTE1 ---
BRIANNA spoke to pt and let her know about [facility]. Her second choice would be [facility], she really wants the [facility]. SW let her know we can't keep her here until Friday waiting for a bed, she did voice understanding. SW to touch base with [facility] tomorrow to make sure they for sure have no openings until Friday.
[2023-11-04 16:21] LABS: Glucometer 88 mg/dL (74-106)
--- NOTE | 2023-11-04 18:05 | PM.ORCN ---
History of Present Illness HPI Consult date: 11/04/23 Consult reason: fracture Chief complaint: FALL HIP PAIN PELVIC FRACTURE SACRAL FRACTURE Narrative: Patient is a 67-year-old who stepped in a hole in the grass yesterday while using her walker. She fell with the acute onset of left sided hip pain. She has also subsequently noticed right shoulder pain although reports this is mild. She was unable to bear weight and transported to the emergency room where CT scan revealed pelvic and sacral fractures on the left. Patient was admitted also with knee injury. Patient localizes most of her pain to the left groin. She does not report paresthesias. Review of Systems ROS Status of ROS 10 or more systems reviewed and unremarkable except as noted in history and below [facility] Medical History (Updated 11/04/23 @ 12:16 by Mary Barry NP) GERD (gastroesophageal reflux disease) ?K21.9 - Gastro-esophageal reflux disease without esophagitis (ICD-10) Hypotension ?I95.9 - Hypotension, unspecified (ICD-10) Hypothyroidism ?E03.9 - Hypothyroidism, unspecified (ICD-10) CHF (congestive heart failure) ?I50.9 - Heart failure, unspecified (ICD-10) Non-STEMI (non-ST elevated myocardial infarction) ?I21.4 - Non-ST elevation (NSTEMI) myocardial infarction (ICD-10) Stroke ?I63.9 - Cerebral infarction, unspecified (ICD-10) Hip fracture, left ?S72.002A - Fracture of unspecified part of neck of left femur, initial encounter for closed fracture (ICD-10) Left tibial fracture ?S82.202A - Unspecified fracture of shaft of left tibia, initial encounter for closed fracture (ICD-10) Surgical History (Updated 11/04/23 @ 10:53 by Mary Barry NP) History of coronary artery bypass graft x 2 ?Z95.1 - Presence of aortocoronary bypass graft (ICD-10) History of right knee joint replacement ?Z96.651 - Presence of right artificial knee joint (ICD-10) Family History (Updated 11/04/23 @ 05:00 by Carolyn Thomas) Other Family history of diabetes mellitus Family history of hypertension Family history of myocardial infarction Social History (Updated 11/04/23 @ 05:02 by Carolyn Thomas) Within the past year, how often did you have a drink containing alcohol: never Score interpretation: A score less than 3 is consistent with normal alcohol consumption. Smoking status: Former smoker Non-prescribed substance use: denies use Previous occupational history: Retired Highest level of school completed/degree received: high school graduate Are you now , , , , never or living with a partner: In a typical week, how many times do you talk on the telephone with family, friends, or neighbors: 3 or more times per week How often do you get together with friends or relatives: 3 or more times per week Little interest or pleasure in doing things: not at all Feeling down, depressed, or hopeless: not at all Feel stressed/tense/nervous/anxious/difficulty sleeping: not at all Do you think of yourself as: straight/heterosexual Gender Identity: female Meds Home Medications and Allergies Home Medications ?Medication ?Instructions ?Recorded ?Confirmed ?Type clopidogrel 75 mg tablet 75 mg PO DAILY 10/12/23 11/04/23 History duloxetine 30 mg capsule,delayed 30 mg PO DAILY 10/12/23 11/04/23 History release famotidine 40 mg tablet 40 mg PO .qhs 10/12/23 11/04/23 History fludrocortisone 0.1 mg tablet 0.05 mg PO DAILY 10/12/23 11/04/23 History liothyronine 5 mcg tablet 10 mcg PO DAILY 10/12/23 11/04/23 History midodrine 10 mg tablet 10 mg PO TID 10/12/23 11/04/23 History montelukast 10 mg tablet 10 mg PO DAILY 10/12/23 11/04/23 History pantoprazole 40 mg tablet,delayed 40 mg PO DAILY 10/12/23 11/04/23 History release pregabalin 50 mg capsule 50 mg PO .qhs 10/12/23 11/04/23 History ranolazine 1,000 mg 500 mg PO Q12H 10/12/23 11/04/23 History tablet,extended release,12 hr rosuvastatin 20 mg tablet 20 mg PO DAILY 10/12/23 11/04/23 History sucralfate 1 gram tablet 1 g PO BID 10/12/23 11/04/23 History trazodone 150 mg tablet 150 mg PO BEDTIME 10/12/23 11/04/23 History bisoprolol fumarate 5 mg tablet 2.5 mg PO DAILY 11/04/23 11/04/23 History calcium citrate 250 mg PO DAILY 11/04/23 11/04/23 History cholecalciferol (vitamin D3) 125 5,000 unit PO TID 11/04/23 11/04/23 History mcg (5,000 unit) capsule collagenase clostridium histo. 250 1 applic topical QPM 11/04/23 11/04/23 History unit/gram topical ointment (Santyl) dapagliflozin propanediol 10 mg 10 mg PO QAM 11/04/23 11/04/23 History tablet (Farxiga) ipratropium bromide 21 mcg (0.03 2 spray intranasal DAILY PRN 11/04/23 11/04/23 History %) nasal spray allergy symptoms midodrine 10 mg tablet 10 mg PO TID PRN hypotension 11/04/23 11/04/23 History sacubitril 24 mg-valsartan 26 mg 0.5 tab PO BID 11/04/23 11/04/23 History tablet (Entresto) spironolactone 25 mg tablet 12.5 mg PO DAILY 11/04/23 11/04/23 History torsemide 20 mg tablet 10 mg PO DAILY 11/04/23 11/04/23 History Allergies Allergy/AdvReac Type Severity Reaction Status Date / Time No Known Drug Allergies Allergy Verified 11/04/23 01:07 Exam Narrative Exam Narrative: Examination today of the pelvis reveals skin is intact. No ecchymosis. Tender to palpation throughout the pubic rami. No foot, ankle tibia or knee tenderness. Grossly distal neurovascularly intact. Right shoulder reveals no swelling although there is defect noted distal to the lateral acromion. She has mild pain with shoulder range of motion but has full forward flexion. She has fairly good strength with resisted rotator cuff testing. Normal sensation over the lateral deltoid. Grossly neurovascularly intact in the right upper extremity. Constitutional Vital Signs, click to edit/add: Last Vital Signs Temp 98.0 F 11/04/23 13:22 Pulse 91 H 11/04/23 17:46 Resp 18 11/04/23 13:22 BP 103/68 11/04/23 13:22 Pulse Ox 94 L 11/04/23 13:22 O2 Del Method Room Air 11/04/23 13:22 Results Labs Labs: Abnormal lab results 11/04/23 11/04/23 11/04/23 Range/Units 01:55 04:57 06:12 RBC 3.72 L 3.60 L (4.20-5.40) 10^6/uL MCV 103.0 H 111.7 H (81.0-99.0) fL Lymph % (Auto) 20.3 L (20.5-60.0) % Eos % (Auto) 0.3 L (0.9-7.0) % Neut # (Auto) 7.3 H (1.4-6.5) 10^3/uL Abs Immat Gran (auto) 0.04 H (0.00-0.03) 10^3/uL Carbon Dioxide 20.2 L (21.0-32.0) mmol/L BUN 54.0 H 51.0 H (7.0-18.0) mg/dL Creatinine 1.90 H 1.72 H (0.55-1.02) mg/dL Est GFR ( Amer) 32 L 36 L (>=60) Est GFR (Non-Af Amer) 26 L 29 L (>=60) Glucose 141 H 135 H (74-106) mg/dL AST 39 H (15-37) U/L Total Protein 5.7 L (6.4-8.2) g/dL Albumin 2.4 L (3.4-5.0) g/dL POC Glucose (74-106) mg/dL 11/04/23 Range/Units 11:10 RBC (4.20-5.40) 10^6/uL MCV (81.0-99.0) fL Lymph % (Auto) (20.5-60.0) % Eos % (Auto) (0.9-7.0) % Neut # (Auto) (1.4-6.5) 10^3/uL Abs Immat Gran (auto) (0.00-0.03) 10^3/uL Carbon Dioxide (21.0-32.0) mmol/L BUN (7.0-18.0) mg/dL Creatinine (0.55-1.02) mg/dL Est GFR ( Amer) (>=60) Est GFR (Non-Af Amer) (>=60) Glucose (74-106) mg/dL AST (15-37) U/L Total Protein (6.4-8.2) g/dL Albumin (3.4-5.0) g/dL POC Glucose 168 H (74-106) mg/dL H & H 11/04/23 11/04/23 Range/Units 01:55 04:57 Hgb 12.5 12.2 (12.0-16.0) g/dL Hct 38.3 40.2 (36.0-48.0) % All other labs normal. Diagnostic results Shoulder x-ray: image reviewed (Shoulder and humerus x-rays were reviewed and show no obvious abnormalities.) Hip CT: image reviewed (CT and x-rays of her left hip are reviewed and show a minimally displaced superior and inferior pubic rami fractures with a small sacral ala fracture) Assessment and Plan Assessment and Plan (1) Pelvic fracture: Assessment and Plan: Patient may be weightbearing as tolerated for her pelvic and sacral fractures. Will want the patient to follow-up with me in 3 weeks to repeat x-rays and reassess her progress. In the interim agree with physical therapy for gait and transfer training. (2) Closed sacral fracture: (3) Right shoulder pain: Assessment and Plan: Right shoulder injury I agree with obtaining an MRI scan for further evaluation. no obvious fracture on x-ray and patient may bear weight as tolerated through that right upper extremity. If an MRI scan is not possible then I would not do any further diagnostics and we will treat her symptomatically with continuing her weightbearing as tolerated and reassessment in 3 weeks. I would hold off on any physical therapy to her right upper extremity. (4) ZAHRAA (acute kidney injury): (5) Dehydration: (6) CHF (congestive heart failure): (7) Non-STEMI (non-ST elevated myocardial infarction): (8) Hypothyroidism: (9) Hypotension: (10) GERD (gastroesophageal reflux disease):
[2023-11-04 19:54] LABS: Glucometer 89 mg/dL (74-106)
[2023-11-04] MEDS: RANOLAZINE 500 MG TAB.ER.12H PO (20:48)
[2023-11-04] MEDS: ACETAMINOPHEN 325 MG TABLET 650 MG PO (20:49)
[2023-11-04] MEDS: TRAZODONE HCL 150 MG TABLET PO (21:28)
[2023-11-05] VITALS (85 sets, daily range): BP systolic 65–107; BP diastolic 43–70; PULSE 80–120; TEMP 36.3–37.2; O2SAT 63–100
--- NOTE | 2023-11-05 01:11 | XR_ITS ---
The [address] [address] Patient Name: ASHVIN RENE MRN: [id number] date: 1955 Sex: F Assigned Patient Location: MS Current Patient Location: ICU Accession/Order Number: [id number] Exam Date: 11/05/2023 01:25 Report Date: 11/05/2023 02:38 At the request of: FELICIA HARRIS Procedure: XR chest 1V EXAM: XR chest 1V HISTORY: SOB. COMPARISON: 02/16/2023. TECHNIQUE: AP chest x-ray. FINDINGS: Cardiac size appears unchanged. There is prior median sternotomy. Loop recorder along the left chest wall. Interstitial thickening is noted. Nodular opacity in the right midlung measuring 1.7 cm. Right infrahilar consolidative changes noted. Similar streak-like left basilar opacity. No pneumothorax or effusion is identified. Retrocardiac density suggesting a hiatal hernia. XR/XR chest 1V IMPRESSION: 1. Nodular opacity in the right midlung measuring 1.7 cm could be airspace disease versus developing nodule. CT chest with IV contrast is recommended. 2. Minor right infrahilar consolidative change could be atelectasis or pneumonia. 3. Similar hiatal hernia. Electronically authenticated by: MARLENE YAN Date: 11/05/2023 02:38
[2023-11-05 01:32] LABS: ABG PCO2 29.9 mmHg (35.0-45.0)
[2023-11-05 01:34] LABS: Base Excess ABG -12.5 mmol/L (-2.0-2.0)
[2023-11-05 01:35] LABS: Allen Test POSITIVE (POSITIVE); HCO3 ABG 14.1 mmol/L (22.0-26.0); O2 Mode NON REBREATHER; Oxygen Saturation ABG 89.2 %
[2023-11-05 01:36] LABS: Fractionated Inspired Oxygen 100 %; Liters per Minute 15; Puncture Site RR
[2023-11-05 01:39] LABS: pH ABG 7.283 (7.350-7.450)
--- NOTE | 2023-11-05 01:45 | P.EN_ITS ---
<Statement entered by Jolene Ellis, DO - 11/05/23 08:19> This documentation has been reviewed. Event Note Event Note: Called by RN for sat 70%RA, 89%NRB and BP 88/58, HR 106, rhonchi per nurse and c/o SOB. Duonebs, CXR, Lasix 20mg IV, ABGs ordered stat; pH 7.28, CO2 29.9, O2 61. Order for Vapotherm and transfer to ICU for higher acuity care; 250ml NS bolus ordered x1. CXR = Nodular opacity in the right midlung measuring 1.7 cm could be airspace disease versus developing nodule. CT chest with IV contrast is recommended2. Minor right infrahilar consolidative change could be atelectasis or pneumonia.3. Similar hiatal hernia . Per RN after transfer inn ICU, patient BP 106 and feeling better on Vapotherm..
[2023-11-05] MEDS: IPRATROPIUM/ALBUTEROL SULFATE 3 ML AMPUL.NEB IH ×4 (02:00→22:24)
[2023-11-05] MEDS: FUROSEMIDE 20 MG/2 ML VIAL IVP (02:03)
--- NOTE | 2023-11-05 02:32 | PC.NURSE ---
arrived via bed to room with nurse and housekeeping department worker. awake, alert, and oriented. wearing non rebreather mask at 12L O2. no visual s/s of resp distress or otherwise. thibodeaux cath had 200 ml of concentrated yellow urine, vitals obtained and was being transitioned to vapotherm per cardiopulmonary staff.
[2023-11-05] MEDS: 0.9 % SODIUM CHLORIDE 250 ML IV.SOLN IV (03:00)
[2023-11-05] MEDS: 0.9 % SODIUM CHLORIDE 1,000 ML 50 ML IV (04:02)
[2023-11-05] MEDS: MIDODRINE HCL 5 MG TABLET 10 MG PO ×4 (05:10→21:58)
[2023-11-05] MEDS: CEFTRIAXONE 1,000 MG in 0.9 % SODIUM CHLORIDE 50 ML 100 MG IV (05:11)
[2023-11-05 05:35] LABS: Basophils Percent Auto 0.2 % (0.2-2.0); Eosinophils Percent Auto 0.6 % (0.9-7.0); Hematocrit 33.8 % (36.0-48.0); Hemoglobin 10.9 g/dL (12.0-16.0); Lymphocytes Absolute Auto 0.7 10^3/uL (1.2-3.8); Lymphocytes Percent Auto 14.2 % (20.5-60.0); Mean Corpuscular HGB Conc 32.2 g/dL (29.9-35.2); Mean Corpuscular Hemoglobin 33.7 pg (26.7-34.0); Mean Corpuscular Volume 104.6 fL (81.0-99.0); Mean Platelet Volume 10.4 fL (9.5-13.5); Monocytes Absolute Auto 0.2 10^3/uL (0.3-0.8); Monocytes Percent Auto 4.4 % (1.7-12.0); Neutrophils Absolute Auto 3.9 10^3/uL (1.4-6.5); Neutrophils Percent Auto 80.6 % (43.0-75.0); Platelet Count 151 10^3/uL (150-450); Red Blood Count 3.23 10^6/uL (4.20-5.40); Red Cell Distribution Width 13.3 % (11.0-15.0); White Blood Count 4.8 10^3/uL (4.0-11.0)
[2023-11-05] MEDS: AZITHROMYCIN 500 MG in 0.9 % SODIUM CHLORIDE 250 ML 250 MG IV (05:46)
[2023-11-05] MEDS: ONDANSETRON PF 4 MG/2 ML VIAL IV (06:21)
[2023-11-05 06:57] LABS: Potassium 3.8 mmol/L (3.5-5.1); Sodium 136 mmol/L (136-145)
[2023-11-05 06:58] LABS: Alanine Aminotransferase 28 U/L (14-59); Alkaline Phosphatase 63 U/L (46-116); Anion Gap 19.7; Aspartate Amino Transferase 22 U/L (15-37); Bilirubin Total 0.4 mg/dL (0.2-1.0); Calcium 8.5 mg/dL (8.5-10.1); Carbon Dioxide 15.1 mmol/L (21.0-32.0); Chloride 105 mmol/L (98-107); Estimated GFR (African America 50 (>=60); Estimated GFR (Non-African Ame 41 (>=60); Glucose 167 mg/dL (74-106); Total Protein 5.3 g/dL (6.4-8.2)
[2023-11-05 06:59] LABS: Albumin Globulin Ratio 0.8; Albumin Level 2.3 g/dL (3.4-5.0)
--- NOTE | 2023-11-05 08:44 | P.PN_ITS ---
Progress Note: Subjective Subjective Interval history: Last night events: patient became hypoxic in 70's on Room Air, HR 106, with SOB. Oxygen and then vapotherm applied. duoneb, chest x-ray and Lasix and ABG. CXR showed Right infrahilar change; patient transferred to ICU for higher level of care. Given patient's recent history of NSTEMI and heart cath with severe/acut onset of hypoxia, I ordered troponin and elevated to 2,000, proBNP also elevated 78420 and d-dimer elevated. Patient still requiring Vapotherm to maintain oxygen sats >90%. CTA and echo ordered. CTA showed no PE's but bilateral groundglass consolidative opacities concerning for multifocal pneumonia. In regards to her, pelvic/sacral fractures, her pain is controlled. Ortho consult did place recommendations for weight bearing as tolerated. I also discussed code status with the patient with nurse and telephonic case manager present and her wish is to be DNRCCA, this was changed in the chart. I also discussed cardiology consult today with patient. Exam Narrative Exam Narrative: General: Patient is alert, and oriented to person, place and time with normal affect, proper hygiene, mildly short of breath with talking Skin: multiple ecchymosis on forearms Head: traumatic with palpable hematoma on the posterior scalp Eyes: PERRLA, no nystagmus present, conjunctiva clear, no scleral icterus Ears: normal gross auditory acuity Heart: Normal rate and rhythm, no murmurs/rubs/gallops Lungs: audible wheezes, no crackles and diminished breath sounds bases lung minaya Abdomen: Normal audible bowel sounds, no distension, No palpable masses, no orga nomegaly, no rebound/guarding/ or rigidity Musculoskeletal: no swelling bilateral lower extremities Neuro: CN II-X grossly intact Constitutional Vital Signs, click to edit/add: Last Vital Signs Temp 97.4 F L 11/05/23 04:04 Pulse 101 H 11/05/23 07:02 Resp 20 11/05/23 07:02 BP 92/61 11/05/23 05:10 Pulse Ox 93 L 11/05/23 07:02 O2 Del Method Vapotherm 11/05/23 07:02 O2 Flow Rate 30 11/05/23 07:02 FiO2 40 11/05/23 07:02 Progress Note: Objective Labs Labs: Short CBC 11/05/23 Range/Units 03:55 WBC 4.8 (4.0-11.0) 10^3/uL Hgb 10.9 L (12.0-16.0) g/dL Hct 33.8 L (36.0-48.0) % Plt Count 151 (150-450) 10^3/uL BMP 11/05/23 03:55 Sodium 136 Potassium 3.8 Chloride 105 Carbon Dioxide 15.1 L BUN 40.0 H Creatinine 1.29 H Glucose 167 H Calcium 8.5 Liver Function 11/05/23 Range/Units 03:55 Total Bilirubin 0.4 (0.2-1.0) mg/dL AST 22 (15-37) U/L ALT 28 (14-59) U/L Alkaline Phosphatase 63 (46-116) U/L Albumin 2.3 L (3.4-5.0) g/dL Progress Note: A&P Assessment and Plan (1) Healthcare-associated pneumonia: Assessment and Plan: as findings on CTA for bilateral PNA, no PE, will check acute viral respiratory panel; recent hospital admission and heart cath so will treat for HCAP on Zosyn as patient has no history of multidrug resistance or MRSA. add OPEP, duonebs, and continue Vapotherm and/or oxygen therapy as needed (2) Acute hypoxemic respiratory failure: Assessment and Plan: oxygen sats in 70's, ABG showing pO2 of 61 with low CO2. continue vapotherm. due to #1, No PE seen on imaging. (3) Elevated troponin: Assessment and Plan: Most likely type 2 NSTEMI from acute pneumonia and hypoxia, patient with recent SD and heart cath. will check limited echo today, cards consult for further recommendations appreciated. (4) Pelvic fracture: Assessment and Plan: follow ortho recs, weight bearing as tolerated. Qualifiers: Encounter type: subsequent encounter Pelvic bone location: pubis Fracture type: closed Fracture alignment: displaced Laterality: left Fracture healing: with routine healing Qualified Code(s): S32.502D - Unspecified fracture of left pubis, subsequent encounter for fracture with routine healing (5) Closed sacral fracture: Assessment and Plan: follow ortho recs, weight bearing as tolerated/ PT/OT; pain control (6) Right shoulder pain: Assessment and Plan: X-ray showed no acute fractures, awaiting MRI (7) ZAHRAA (acute kidney injury): Assessment and Plan: improving. Stopped fluids secondary to history of CHF (8) CHF (congestive heart failure): Assessment and Plan: Recent 2D Echo at [facility] on 10/13/23 w/ LVEF of 20-25%; Holding new Farxiga, Entresto and spironolactone d/t ZAHRAA Qualifiers: Heart failure type: combined systolic and diastolic Heart failure chronicity: chronic Qualified Code(s): I50.42 - Chronic combined systolic (congestive) and diastolic (congestive) heart failure (9) Non-STEMI (non-ST elevated myocardial infarction): Assessment and Plan: recent heart cath, medically management only (10) Hypothyroidism: Assessment and Plan: continue levothyroxine Qualifiers: Hypothyroidism type: acquired Qualified Code(s): E03.9 - Hypothyroidism, unspecified (11) Hypotension: Assessment and Plan: takes midodrine daily Qualifiers: Hypotension type: unspecified hypotension type Qualified Code(s): I95.9 - Hypotension, unspecified (12) GERD (gastroesophageal reflux disease): Assessment and Plan: Continue home PPI, famotidine, and sucralfate Qualifiers: Esophagitis presence: without esophagitis Qualified Code(s): K21.9 - Gastro-esophageal reflux disease without esophagitis Plan Patient's code status changed to DNRCCA patient's health status with acute deterioration that required 40min of Critical care time, patient to require several more days of inpatient hospital treatment of her worsening/new/acute medical conditions Urinary Catheter Management Urinary Catheter Management Urethral: Cath placed during this visit: yes Urethral indwelling: Yes Reason for continuing: acute urinary retention Insertion date: 11/04/23
[2023-11-05 08:45] LABS: Glucometer 163 mg/dL (74-106)
--- NOTE | 2023-11-05 08:48 | ECG_ITS ---
The [facility] Test Date: 2023-11-05 Pat Name: ASHVIN RENE Department: Room: [facility] Gender: Female Faculty Member: : 1955 Requested By: [id number] Order Number: [id number] Reading MD: DIMA DIOP Measurements Intervals [place] Rate: 96 P: 75 ME: 158 QRS: 2 QRSD: 110 T: 72 QT: 366 QTc: 419 Interpretive Statements 1100 Sinus rhythm 3234 Anteroseptal myocardial infarction, age undetermined 8102 Low QRS voltage in chest leads 9150 abnormal ECG Electronically Signed On 11-06-2023 6:40:51 EDT by DIMA DIOP
[2023-11-05] MEDS: RANOLAZINE 500 MG TAB.ER.12H PO ×2 (09:04→20:28)
[2023-11-05] MEDS: CLOPIDOGREL BISULFATE 75 MG TABLET PO (09:05)
[2023-11-05] MEDS: DULOXETINE HCL 30 MG CAPSULE.DR PO (09:05)
[2023-11-05] MEDS: SUCRALFATE 1 GM TABLET PO ×2 (09:05→20:30)
[2023-11-05] MEDS: LIOTHYRONINE SODIUM 5 MCG TABLET 10 MCG PO (09:05)
[2023-11-05] MEDS: MONTELUKAST SODIUM 10 MG TABLET PO (09:06)
[2023-11-05] MEDS: OMEPRAZOLE 40 MG CAPSULE.DR PO (09:06)
[2023-11-05] MEDS: FAMOTIDINE 20 MG TABLET 40 MG PO (09:07)
[2023-11-05] MEDS: CHOLECALCIFEROL (VITAMIN D3) 125 MCG/5,000 UNIT TABLET PO (09:16)
[2023-11-05] MEDS: FLUDROCORTISONE ACETATE 0.1 MG TABLET 0.0500000000000000028 MG PO (09:16)
[2023-11-05] MEDS: INSULIN ASPART 300 UNIT/3 ML PEN SUBQ ×3 (09:17→22:07)
[2023-11-05 09:41] LABS: D Dimer 1.37 mg/L FEU (<=0.59); Troponin I High Sensitivity 2009.1 pg/mL (4.0-51.3)
--- NOTE | 2023-11-05 09:46 | CA_ITS ---
Patient Name: ASHVIN RENE MR#: [id number] : 1955 Exam Date: 11/05/2023 Ordering Doctor: HUGH DUNNE . ECHOCARDIOGRAM REPORT PROCEDURE: CA ECHO LIMITED INDICATIONS: elevated trop, pro-bnp, acute hypoxia, CABGx2, cardiac stents, congestive heart failure COMPARISON: None. DESCRIPTION: Limited ECHOCARDIOGRAM Real-time transthoracic echocardiography with 2D and M-mode performed. QUALITY: Limited echocardiogram per physician order. 62 , 136#, BSA 1.62 m2, BP 73/45 LEFT VENTRICLE: Normal chamber size. LV EF: Global left ventricular systolic function is difficult to assess but appears preserved; visually estimated ejection fraction is 55%. Abnormal septal motion; this is not an unusual finding in the post open heart patient. LEFT ATRIUM: Appears normal in size. RIGHT ATRIUM: Appears normal in size. RIGHT VENTRICLE: Normal in size; systolic function appears preserved. TRICUSPID VALVE: Normal mobility and thickness. MITRAL VALVE: Normal mobility and thickness. There is no mitral annular calcification. AORTIC VALVE: Normal trileaflet appearance. Thickened aortic valve. Normal leaflet mobility. AORTIC ROOT: Normal diameter and appearance. PULMONIC VALVE: Not well visualized. PERICARDIUM: No evidence of pericardial effusion. CONCLUSION: 1. Global left ventricular systolic function is difficult to assess but appears preserved; visually estimated ejection fraction is 55% 2. The right ventricle is normal in size and systolic function A limited echocardiogram was performed Adult Echocardiography Procedure Report Left Ventricle LVEDD (3.7 - 5.6 cm): 4.02 cm LVESD (2.2 - 4.0 cm): 3.17 cm LVIVS thickness (0.6 - 1.2 cm): 0.69 cm LVPW thickness (0.5 - 1.0 cm): 0.79 cm LVOT Diameter 1.91 cm Left Atrium Left Atrium Systolic Dimension: 3.06 cm Mitral Valve Right Ventricle Aorta AO Root Diam: 2.65 cm Aortic Valve Tricuspid Valve Pulmonic Valve Peak Velocity: 0.42 m/s Peak Gradient: 0.70 mm[Hg] Right Atrium Dictated by: Emeka Baptiste M.D. on 11/06/2023 at 09:41 Approved by: Emeka Baptiste M.D. on 11/06/2023 at 09:45
--- NOTE | 2023-11-05 09:46 | CT_ITS ---
The [address] [address] Patient Name: ASHVIN RENE MRN: [id number] date: 1955 Sex: F Assigned Patient Location: ICU Current Patient Location: ICU Accession/Order Number: [id number] Exam Date: 11/05/2023 10:54 Report Date: 11/05/2023 11:29 At the request of: HUGH DUNNE Procedure: CT angio chest EXAM: CT angio chest HISTORY: hypoxia, elevated trop, fractures, concern for PE COMPARISON: None. TECHNIQUE: Following the intravenous administration of 99 cc of Omnipaque 350, axial soft tissue and lung windows of the chest were performed with coronal and sagittal reformats. 3-D MIPS reconstructions were created and reviewed. CT dose reduction technique was used including Automated Exposure Control. Findings: There are postsurgical changes consistent with median sternotomy. The heart is nonenlarged. There are coronary artery calcifications. No pericardial effusion. The thoracic aorta is normal caliber. There is adequate opacification of the pulmonary arteries. However, evaluation of the right upper lobe segmental and subsegmental pulmonary arteries are limited due to patient generated motion artifact. No evidence of pulmonary embolism. The central airways are patent. No pneumothorax. No pleural effusion. There are patchy bilateral groundglass and consolidative opacities. Findings are most pronounced within the right upper lobe. Mild bilateral lower lobe atelectasis. There appears to have been a partial esophagectomy with partial gastric pull-through. There is fluid and debris within the esophagus. No aggressive sclerotic or lytic osseous lesions. Mild multilevel degenerative thoracic spondylosis. CT/CT angio chest IMPRESSION: 1. No pulmonary embolism. 2. Patchy bilateral groundglass and consolidative opacities concerning for multifocal pneumonia. Electronically authenticated by: EMMETT NG Date: 11/05/2023 11:29
--- NOTE | 2023-11-05 11:30 | CM.NOTE ---
Rounds made with Dr. Ellis, discussed with pt about further work-up CTA chest and consult from cardiology today. Pt remains on vapotherm, no discharge today.
--- NOTE | 2023-11-05 11:46 | SWNOTE1 ---
SW waiting for pt to get consults completed and then proceed with discharge plans.
[2023-11-05 11:59] LABS: Glucometer 154 mg/dL (74-106)
[2023-11-05] MEDS: ACETAMINOPHEN 325 MG TABLET 650 MG PO ×2 (12:05→20:28)
[2023-11-05 12:58] LABS: Adenovirus NOT DETECTED (NOT DETECTE); Bordetella parapertussis NOT DETECTED (NOT DETECTE); Coronavirus 229E NOT DETECTED (NOT DETECTE); Coronavirus HKU1 NOT DETECTED (NOT DETECTE); Coronavirus NL63 NOT DETECTED (NOT DETECTE); Coronavirus OC43 NOT DETECTED (NOT DETECTE); Human Metapneumovirus NOT DETECTED (NOT DETECTE); Human Rhinovirus/Enterovirus NOT DETECTED (NOT DETECTE); Influenza A NOT DETECTED (NOT DETECTE); Influenza B NOT DETECTED (NOT DETECTE); Mycoplasma pneumoniae NOT DETECTED (NOT DETECTE); Parainfluenza Virus 1 NOT DETECTED (NOT DETECTE); Parainfluenza Virus 2 NOT DETECTED (NOT DETECTE); Parainfluenza Virus 3 NOT DETECTED (NOT DETECTE); Parainfluenza Virus 4 NOT DETECTED (NOT DETECTE); Respiratory Syncytial Virus NOT DETECTED (NOT DETECTE); SARS-CoV-2 NOT DETECTED (NOT DETECTE)
--- NOTE | 2023-11-05 13:08 | SWNOTE1 ---
BRIANNA sent updates to [facility]. BRIANNA then received call from Francheska at [facility] and the patient that was potentially discharging Friday is now appealing discharge. They are not sure when they will know if she will leave or not. BRIANNA to send referral to [facility]. BRIANNA updated patient.
[2023-11-05] MEDS: PIPERACILLIN SODIUM/TAZOBACTAM 3.375 GM in 0.9 % SODIUM CHLORIDE 50 ML IV ×2 (14:22→21:57)
--- NOTE | 2023-11-05 14:25 | SWNOTE1 ---
[facility] is able to accommodate. SW sent over vitals and therapy notes for [facility] to start precert.
--- NOTE | 2023-11-05 14:42 | SWNOTE1 ---
SW informed pt that [facility] is not able to accept due to bed availability. SW let her know that [facility] can accept and that they are starting precert. Pt did voice she really wanted [facility], but at this time SW is not sure when they will have a bed. SW offered other choices throughout the area, but pt wanted to stay in [facility].
--- NOTE | 2023-11-05 15:50 | CONS_ITS ---
CARDIOLOGY CONSULTATION CONSULTATION DATE: ??11/05/2023 [facility] CONSULT NOTE HPI:? Sujata Alonzo is a 67-year-old female with a past medical history including CAD, status post CABG with SVG to RCA, ROMERO to LAD in 2012, PCI to LCx, ischemic cardiomyopathy with last known EF of 20-25%, hypertension, CVA, who presented to [facility] with complaints of fall.? Patient reportedly was ambulating outside near her car around 6:00 p.m. the previous evening using her wheeled walker.? At that time, she bent over to strip picker her dog, and her walker slipped from underneath her and she had a mechanical fall.? She landed on her bottom first, then proceeded to hit her head. She denies any prodromal symptoms.? She denies having any dizziness or lightheadedness prior to the event.? She adamantly denies any chest pain or shortness of breath.? She denies any lower extremity edema, orthopnea or paroxysmal nocturnal dyspnea. Since her admission, patient has had some lab abnormalities prompting Cardiology consultation.? Patient was found to have an ZAHRAA with a creatinine of 1.9.? She was noted to have an elevated high sensitivity troponin at 2008, in addition to an elevated Pro BNP at 12,587.? Cardiology was asked to evaluate patient given these findings. Of note:? Patient was recently hospitalized for NSTEMI.? She was transferred to [facility] and underwent left heart cath on 10/14/2023.? At the time, patient was found to have an occluded SVG to RCA, which was thought to be a new finding.? Her ROMERO to LAD was open, but is noted to be a very small graft, with severe stenosis/occlusion of [place] LAD after the anastomosis.? Patient?s previous stent in her circumflex was widely patent.? Her right and left sided pressures were unremarkable.? Patient was managed medically and was optimized from a GDMT standpoint and was discharged home. Today, patient states that she feels significantly improved.? Again, she adamantly denies any chest pain or shortness of breath either prior to presenting to the hospital or since her arrival.? She states that when she had her NSTEMI several weeks ago, she had significant chest pain.? She adamantly denies any recurrence of such chest pain since that time.? Additionally, she denies any shortness of breath.? She denies any signs/symptoms of decompensated heart failure. Of note:? Given elevated D-dimer, CTA was performed and was negative for PE.? CARDIOLOGY REVIEW OF SYSTEMS:? Ten point ROS was performed and was negative, unless otherwise specified in HPI. PAST MEDICAL HISTORY: 1.? Heart failure with reduced ejection fraction. 2.? Ischemic cardiomyopathy. 3.? CAD. 4.? History of CABG. 5.? History of PCI. 6.? CVA. 7.? Hypertension. 8.? Hyperlipidemia. 9.? Pelvic fracture. SURGICAL HISTORY:? Noncontributory. SOCIAL HISTORY:? Noncontributory. MEDICATIONS: 1.? Plavix 75 mg daily. 2.? Duloxetine 30 mg daily. 3.? Famotidine 40 mg daily. 4.? Fludrocortisone acetate 0.5 mg daily. 5.? Midodrine 10 mg p.o. t.i.d. 6.? Aspirin 81 mg daily. 7.? Metoprolol tartrate 12.5 mg b.i.d. 8.? Ranolazine 500 mg p.o. b.i.d. PHYSICAL EXAM: Vital Signs:? Blood pressure 80/45, pulse 84, respiratory rate 20, temperature 98.3, O2 sat 94, oxygen delivery 3 liters per minute nasal cannula. Constitutional:? Well developed, chronically ill-appearing, no acute distress.? HEENT:? Normocephalic, atraumatic.??? Eyes:? PERRLA.? Extraocular muscles are intact.? Neck:? Normal range.? No tenderness. Cardiovascular:? Normal heart rate.? Normal rhythm.? No murmurs, no rubs, no gallops. Thorax and Lungs:? Normal breath sounds.? No respiratory distress. Abdomen:? Bowel sounds normal.? Soft, non- tender, non-distended. Skin:? Warm, dry, intact.? No edema or erythema. Back:? No CVA tenderness. Extremities:? Intact.? No edema, erythema or cyanosis.? Musculoskeletal:? Grossly intact. Neurologic:? Alert and oriented x3.? No gross neurological deficits. Psychiatric:? Affect normal.? Judgment normal. EKG:? No ST changes. IMPRESSION: 1.? NSTEMI, likely type 2 in the setting of fall, multifocal pneumonia on CT, pelvic fracture, ZAHRAA versus lingering troponemia from previous insult. 2.? Heart failure with reduced ejection fraction, appears euvolemic on exam. 3.? Ischemic cardiomyopathy. 4.? Multifocal pneumonia. 5.? Acute pelvic fracture. 6.? ZAHRAA. PLAN:? 1. Patient adamantly denies any chest pain similar to the chest pain she had during her previous insult.? This does not appear to be an acute coronary event.? At this time, would recommend treating patient for underlying and ongoing illnesses and providing supportive care.? No acute intervention indicated at this time. 2.? Patient was stated on dual anti-platelet therapy following her recent NSTEMI.? Would recommend continuing aspirin 81 mg daily and Plavix 75 mg daily, as long as there are no contraindications.? 3.? Continue rosuvastatin for hyperlipidemia. 4.? Would recommend holding patient?s GDMT at this time, given her personal hypotension.? Would recommend holding Entresto, in addition to metoprolol and spironolactone.? Can gradually fold in guideline directed medical therapy after acute illness resolved. 5.? Would recommend trending troponins x3 to ensure that troponin is not up trending.? 6.? Would recommend obtaining echocardiogram to assess LVEF, regional wall motion. 7.? Continued antibiotic therapy for multifocal pneumonia, in addition to supportive care and pain control for pelvic fracture. 8.? Gentle diuresis as allowed per blood pressure. 9.? If patient has any significant increase in her troponin, or if she develops chest pain or becomes unstable, please have low threshold to transfer out to PCI capable center. 10.? Please do not hesitate to contact [facility] with any questions/concerns. MTDD
[2023-11-05] MEDS: OXYCODONE HCL 5 MG TABLET PO (15:55)
--- NOTE | 2023-11-05 16:11 | SWNOTE1 ---
[facility] started precert.
[2023-11-05 17:21] LABS: Glucometer 109 mg/dL (74-106)
[2023-11-05] MEDS: ASPIRIN 81 MG TAB.CHEW PO (17:21)
[2023-11-05 17:35] LABS: Creatine Kinase 80 U/L (26-192)
[2023-11-05 17:56] LABS: Creatine Kinase MB 8.24 ng/mL (<=3.60); Troponin I High Sensitivity 2259.5 pg/mL (4.0-51.3)
[2023-11-05 20:33] LABS: Creatine Kinase 75 U/L (26-192); Myoglobin 85 ng/mL (9-82)
[2023-11-05 20:38] LABS: Creatine Kinase MB 6.01 ng/mL (<=3.60); Troponin I High Sensitivity 1858.7 pg/mL (4.0-51.3)
[2023-11-05 22:03] LABS: Glucometer 156 mg/dL (74-106)
[2023-11-05] MEDS: PREGABALIN 50 MG CAPSULE PO (22:03)
[2023-11-05] MEDS: TRAZODONE HCL 150 MG TABLET PO (22:06)
[2023-11-05] MEDS: OXYCODONE HCL 5 MG TABLET 10 MG PO (22:13)
--- NOTE | 2023-11-05 22:24 | RESP.RT ---
decreased 02 down to 2L
[2023-11-06] VITALS (25 sets, daily range): BP systolic 85–95; BP diastolic 50–56; PULSE 79–89; TEMP 36.5–36.8; O2SAT 87–98
[2023-11-06] MEDS: IPRATROPIUM/ALBUTEROL SULFATE 3 ML AMPUL.NEB IH ×2 (04:36→11:22)
[2023-11-06] MEDS: MIDODRINE HCL 5 MG TABLET 10 MG PO ×2 (05:30→13:33)
[2023-11-06] MEDS: ACETAMINOPHEN 325 MG TABLET 650 MG PO (05:30)
[2023-11-06 05:31] LABS: Basophils Percent Auto 0.3 % (0.2-2.0); Eosinophils Absolute Auto 0.3 10^3/uL (0.0-0.7); Eosinophils Percent Auto 4.2 % (0.9-7.0); Hematocrit 30.6 % (36.0-48.0); Hemoglobin 9.7 g/dL (12.0-16.0); Immature Granulocytes Abs Auto 0.01 10^3/uL (0.00-0.03); Immature Granulocytes Pct Auto 0.2 % (0.0-0.5); Lymphocytes Absolute Auto 1.4 10^3/uL (1.2-3.8); Lymphocytes Percent Auto 22.3 % (20.5-60.0); Mean Corpuscular HGB Conc 31.7 g/dL (29.9-35.2); Mean Corpuscular Volume 107.4 fL (81.0-99.0); Mean Platelet Volume 11.2 fL (9.5-13.5); Monocytes Absolute Auto 0.3 10^3/uL (0.3-0.8); Monocytes Percent Auto 5.1 % (1.7-12.0); Neutrophils Absolute Auto 4.2 10^3/uL (1.4-6.5); Neutrophils Percent Auto 67.9 % (43.0-75.0); Platelet Count 97 10^3/uL (150-450); Red Blood Count 2.85 10^6/uL (4.20-5.40); Red Cell Distribution Width 13.8 % (11.0-15.0); White Blood Count 6.2 10^3/uL (4.0-11.0)
[2023-11-06] MEDS: PIPERACILLIN SODIUM/TAZOBACTAM 3.375 GM in 0.9 % SODIUM CHLORIDE 50 ML IV (05:31)
[2023-11-06 05:42] LABS: Alanine Aminotransferase 24 U/L (14-59); Albumin Globulin Ratio 0.6; Albumin Level 1.9 g/dL (3.4-5.0); Alkaline Phosphatase 57 U/L (46-116); Aspartate Amino Transferase 35 U/L (15-37); BUN Creatinine Ratio 26.8; Bilirubin Total 0.3 mg/dL (0.2-1.0); Calcium 8.6 mg/dL (8.5-10.1); Carbon Dioxide 20.1 mmol/L (21.0-32.0); Chloride 104 mmol/L (98-107); Estimated GFR (African America 41 (>=60); Estimated GFR (Non-African Ame 34 (>=60); Globulin 3.2 g/dL; Glucose 100 mg/dL (74-106); Potassium 4.1 mmol/L (3.5-5.1); Sodium 136 mmol/L (136-145); Total Protein 5.1 g/dL (6.4-8.2)
--- NOTE | 2023-11-06 08:32 | P.PN_ITS ---
Progress Note: Subjective Subjective Interval history: Last night events: patient became hypoxic in 70's on Room Air, HR 106, with SOB. Oxygen and then vapotherm applied. duoneb, chest x-ray and Lasix and ABG. CXR showed Right infrahilar change; patient transferred to ICU for higher level of care. Given patient's recent history of NSTEMI and heart cath with severe/acut onset of hypoxia, I ordered troponin and elevated to 2,000, proBNP also elevated 39411 and d-dimer elevated. Patient still requiring Vapotherm to maintain oxygen sats >90%. CTA and echo ordered. CTA showed no PE's but bilateral groundglass consolidative opacities concerning for multifocal pneumonia. In regards to her, pelvic/sacral fractures, her pain is controlled. Ortho consult did place recommendations for weight bearing as tolerated. I also discussed code status with the patient with nurse and protective services case worker present and her wish is to be DNRCCA, this was changed in the chart. I also discussed cardiology consult today with patient. Exam Constitutional Vital Signs, click to edit/add: Last Vital Signs Temp 98.1 F 11/06/23 01:07 Pulse 83 11/06/23 08:00 Resp 19 11/06/23 08:00 BP 94/54 11/06/23 05:30 Pulse Ox 92 L 11/06/23 08:00 O2 Del Method Nasal Cannula 11/06/23 04:47 O2 Flow Rate 2 11/06/23 05:16 FiO2 40 11/05/23 08:41 Progress Note: Objective Labs Labs: Short CBC 11/06/23 Range/Units 05:10 WBC 6.2 (4.0-11.0) 10^3/uL Hgb 9.7 L (12.0-16.0) g/dL Hct 30.6 L (36.0-48.0) % Plt Count 97 L (150-450) 10^3/uL BMP 11/06/23 05:10 Sodium 136 Potassium 4.1 Chloride 104 Carbon Dioxide 20.1 L BUN 41.0 H Creatinine 1.53 H Glucose 100 Calcium 8.6 Cardiac Enzymes 11/05/23 11/05/23 Range/Units 16:58 20:04 Total Creatine Kinase 80 75 (26-192) U/L CK-MB (CK-2) 8.24 H* 6.01 H* (<=3.60) ng/mL Liver Function 11/06/23 Range/Units 05:10 Total Bilirubin 0.3 (0.2-1.0) mg/dL AST 35 (15-37) U/L ALT 24 (14-59) U/L Alkaline Phosphatase 57 (46-116) U/L Albumin 1.9 L (3.4-5.0) g/dL Progress Note: A&P Assessment and Plan (1) Healthcare-associated pneumonia: (2) Acute hypoxemic respiratory failure: (3) Elevated troponin: (4) Pelvic fracture: Qualifiers: Encounter type: subsequent encounter Fracture alignment: displaced Fracture healing: with routine healing Fracture type: closed Laterality: left Pelvic bone location: pubis Qualified Code(s): S32.502D - Unspecified fracture of left pubis, subsequent encounter for fracture with routine healing (5) Closed sacral fracture: (6) Right shoulder pain: (7) ZAHRAA (acute kidney injury): (8) CHF (congestive heart failure): Qualifiers: Heart failure chronicity: chronic Heart failure type: combined systolic and diastolic Qualified Code(s): I50.42 - Chronic combined systolic (congestive) and diastolic (congestive) heart failure (9) Non-STEMI (non-ST elevated myocardial infarction): (10) Hypothyroidism: Qualifiers: Hypothyroidism type: acquired Qualified Code(s): E03.9 - Hypothyroidism, unspecified (11) Hypotension: Qualifiers: Hypotension type: unspecified hypotension type Qualified Code(s): I95.9 - Hypotension, unspecified (12) GERD (gastroesophageal reflux disease): Qualifiers: Esophagitis presence: without esophagitis Qualified Code(s): K21.9 - Gastro-esophageal reflux disease without esophagitis Urinary Catheter Management Urinary Catheter Management Urethral: Cath placed during this visit: yes Urethral indwelling: Yes Insertion date: 11/04/23
[2023-11-06 09:01] LABS: Glucometer 120 mg/dL (74-106)
--- NOTE | 2023-11-06 09:11 | SWNOTE1 ---
SW received message from [facility] and pt is approved by her insurance to go.
--- NOTE | 2023-11-06 09:12 | CM.NOTE ---
2nd Notice of Important Message From Medicare discussed with pt, denies questions or concerns.
[2023-11-06] MEDS: CHOLECALCIFEROL (VITAMIN D3) 125 MCG/5,000 UNIT TABLET PO (09:23)
[2023-11-06] MEDS: SUCRALFATE 1 GM TABLET PO (09:23)
[2023-11-06] MEDS: ASPIRIN 81 MG TAB.CHEW PO (09:23)
[2023-11-06] MEDS: RANOLAZINE 500 MG TAB.ER.12H PO (09:23)
[2023-11-06] MEDS: OMEPRAZOLE 40 MG CAPSULE.DR PO (09:24)
[2023-11-06] MEDS: MONTELUKAST SODIUM 10 MG TABLET PO (09:24)
[2023-11-06] MEDS: CLOPIDOGREL BISULFATE 75 MG TABLET PO (09:24)
[2023-11-06] MEDS: DULOXETINE HCL 30 MG CAPSULE.DR PO (09:24)
[2023-11-06] MEDS: LIOTHYRONINE SODIUM 5 MCG TABLET 10 MCG PO (09:24)
[2023-11-06] MEDS: FLUDROCORTISONE ACETATE 0.1 MG TABLET 0.0500000000000000028 MG PO (09:24)
[2023-11-06] MEDS: FAMOTIDINE 20 MG TABLET 40 MG PO (09:24)
[2023-11-06] MEDS: OXYCODONE HCL 5 MG TABLET PO (09:30)
--- NOTE | 2023-11-06 11:11 | PT.DAILY ---
Physical Therapy Daily Note PT Daily Note/Assess Start: 11/06/23 11:07 Freq: Status: Active Protocol: Document 11/06/23 11:08 QUAN (Rec: 11/06/23 11:11 QUAN [id number]) Physical Therapy Daily Note/Assessment Time In/Time Out Time In 09:35 Time Out 09:50 Pain In Pain N/A Pain Out Pain N/A Subjective Subjective Pt sitting in BS chair upon arrival. Agrees to PT but wishes to get back to bed. Therapeutic Exercise Time Therapeutic Exercise Minutes (minutes) 4 Therapeutic Exercise Units 0 Therapeutic Exercise Treatment Therapeutic Exercise Treatment Pt completes AP, LAQ, marches, and squeezes 10x ea while sitting in BS chair prior to transfer/gait. Therapeutic Activity Time Therapeutic Activity Minutes (minutes) 6 Therapeutic Activity Units 1 Therapeutic Activity Treatment Bed Mobility Ability Moderate Assist Chair Transfer Ability Moderate Assist Therapeutic Activity Comments sit>stand from BS chair with ModA on this date due to posterior lean and pain. Pt amb 8' to bed with RW, CGA. Sit>supine with ModA to advance LEs in to bed. Remains supine with call light in reach and needs met. Total Physical Therapy Time Total Therapy Minutes 10 Total Physical Therapy Units 1 Summary Daily Note Summary IMproved gait ability on this date but cont to require assistance for transfers due to pain.
--- NOTE | 2023-11-06 11:43 | CM.NOTE ---
Rounds made with Dr. Ellis, discussed with pt possible discharge to [facility] for skilled therapy. Pt on room air at this time and will discharge on P.O antibiotics.
--- NOTE | 2023-11-06 11:59 | P.DS_ITS ---
DS: Providers Provider Date of admission: 11/04/23 04:38 Primary care physician: Non-Staff Physician, Admitting clinician: Jolene Ellis Consults: 11/04/23 03:15 Physical Therapy Eval and Treat Routine Reason for consultation: Pelvic/sacral Fx Has provider been notified: No 11/04/23 03:21 Consult to Orthopedic Surgery Routine Consulting Provider: David Pantoja Reason For Exam: Reason for consultation: pelvic/sacral Fx Has provider been notified: No Occupational Therapy Eval and Treat Routine Reason for consultation: pelvic/sacral Fx Has provider been notified: No 11/05/23 08:43 Physical Therapy Eval and Treat Routine Reason for consultation: Patient may be weightbearing as tolerated for her pelvic and sacral frac Has provider been notified: No 11/05/23 09:46 Consult to Cardiology Routine Reason for consultation: acute hypoxia, sob, elevated Trop, recent TX, echo and CTA pending Has provider been notified: No Discharging clinician: Jolene Ellis DS: Diagnosis Discharge Diagnosis (1) Healthcare-associated pneumonia: (2) Acute hypoxemic respiratory failure: (3) Elevated troponin: (4) Pelvic fracture: Qualifiers: Encounter type: subsequent encounter Fracture alignment: displaced Fracture healing: with routine healing Fracture type: closed Laterality: left Pelvic bone location: pubis Qualified Code(s): S32.502D - Unspecified fracture of left pubis, subsequent encounter for fracture with routine healing (5) Closed sacral fracture: (6) Right shoulder pain: (7) ZAHRAA (acute kidney injury): (8) CHF (congestive heart failure): Qualifiers: Heart failure chronicity: chronic Heart failure type: combined systolic and diastolic Qualified Code(s): I50.42 - Chronic combined systolic (congestive) and diastolic (congestive) heart failure (9) Non-STEMI (non-ST elevated myocardial infarction): (10) Hypothyroidism: Qualifiers: Hypothyroidism type: acquired Qualified Code(s): E03.9 - Hypothyroidism, unspecified (11) Hypotension: Qualifiers: Hypotension type: unspecified hypotension type Qualified Code(s): I95.9 - Hypotension, unspecified (12) GERD (gastroesophageal reflux disease): Qualifiers: Esophagitis presence: without esophagitis Qualified Code(s): K21.9 - Gastro-esophageal reflux disease without esophagitis DS: Summary Hospital Course Hospital Course: This is a 67-year-old female patient with a complicated past medical history including hypothyroidism, hypotension, GERD, CAD s/p CABG x 2 in 2012, recent NSTEMI last month with reocclusion of the SVG to RCA and medically managed, systolic heart failure, and history of CVA; who presented to the ED on 11/04/23 after suffering a mechanical fall at home. Workup in the ED revealed ZAHRAA (BUN 54, CR 1.9, GFR 26), but all other labs were unremarkable. A hip x-ray was unremarkable for acute fracture. CT of the head revealed no acute intracranial process, an air-fluid level within the maxillary sinus and suggestion of cortical irregularity could be concerning for fracture. CT of the cervical spine revealed no acute fracture or dislocations. CT of the left hip revealed acute comminuted left superior and inferior pubic rami fractures close to the urinary bladder and a left sacral ALA fracture. Orthopedic, Dr. Pantoja was consulted and recommended: Patient may be weightbearing as tolerated for her pelvic and sacral fractures. Will want the patient to follow-up with me in 3 weeks to repeat x-rays and reassess her progress. In the interim agree with physical therapy for gait and transfer training. Patient's pain was controlled with tylenol and oxycodone. He also suggested MRI of the right shoulder as painful with slight deformity, Xray was negative for fractures but given loop recorder and hardware we could not obtain MRI. She will have close orthopedic follow up in November. Her hospitalization was also complicated by: patient became hypoxic in 70's on Room Air, HR 106, with SOB. Oxygen and then vapotherm applied. duoneb, chest x- ray and Lasix and ABG. CXR showed Right infrahilar change; patient transferred to ICU for higher level of care. Given patient's recent history of NSTEMI and heart cath with severe/acute onset of hypoxia, I ordered troponin and elevated to 2,000, proBNP also elevated 46838 and d-dimer elevated. CTA and echo ordered. CTA showed no PE's but bilateral groundglass consolidative opacities concerning for multifocal pneumonia. She was placed on Zosyn. Duonebs, OPEP and at the time of discharge, patient has recovered faster than anticipated and is not having oxygen requirements. She will be placed on doxycycline 100mg BID x 7 days for her HCAP. In regards to the elevated troponin, Cardiology consult, physician came to evaluated her and agreed that most likely type 2 NSTEMI as she had recent cardiac cath, is medically optimized and recent HCAP diagnosis. He recommended daily aspirin in addition to her plavix. This will be continued yaneth ly. Patient has hypotension daily and takes midodrine scheduled. With the pain medication, she continued to be hypotensive. I will hold the bisoprolol while she is taking pain medication. She Will go to care home facility for rehab from her fractures. She is to return with any worsening or concerning signs or symptoms with close Cardiology and Orthopedic follow up. Status at Discharge Functional status at discharge: uses cane/walker Overall status at discharge: patient is progressing back to baseline Time Spent with Patient Time attestation: Total time spent providing and/or coordinating discharge services: Time spent: greater than 30 minutes Exam Narrative Exam Narrative: General: Patient is alert, and oriented to person, place and time with normal affect, proper hygiene, appears in no acute distress today, sitting up comfortably in chair Skin: multiple ecchymosis on forearms Eyes: PERRLA, no nystagmus present, conjunctiva clear, no scleral icterus Ears: normal gross auditory acuity Heart: Normal rate and rhythm, no murmurs/rubs/gallops Lungs: no audible wheezes, no crackles and Normal breath sounds bases lung minaya Abdomen: Normal audible bowel sounds, no distension, No palpable masses, no organomegaly, no rebound/guarding/ or rigidity Musculoskeletal: no swelling bilateral lower extremities Neuro: CN II-X grossly intact Constitutional Vital Signs, click to edit/add: Last Vital Signs Temp 97.7 F 11/06/23 08:00 Pulse 81 11/06/23 11:33 Resp 16 11/06/23 11:33 BP 94/54 11/06/23 05:30 Pulse Ox 96 11/06/23 11:33 O2 Del Method Room Air 11/06/23 11:33 O2 Flow Rate 2 11/06/23 05:16 FiO2 40 11/05/23 08:41 DS: Data Data Completed and Pending Labs on day of discharge: Labs from last 24 hours 11/06/23 11/06/23 11/05/23 08:59 05:10 22:02 WBC 6.2 RBC 2.85 L Hgb 9.7 L Hct 30.6 L MCV 107.4 H MCH 34.0 MCHC 31.7 RDW 13.8 Plt Count 97 L MPV 11.2 Neut % (Auto) 67.9 Lymph % (Auto) 22.3 Runnels % (Auto) 5.1 Eos % (Auto) 4.2 Baso % (Auto) 0.3 Neut # (Auto) 4.2 Lymph # (Auto) 1.4 Runnels # (Auto) 0.3 Eos # (Auto) 0.3 Baso # (Auto) 0.0 Abs Immat Gran (auto) 0.01 Imm/Tot Granulo (auto) 0.2 Sodium 136 Potassium 4.1 Chloride 104 Carbon Dioxide 20.1 L Anion Gap 16.0 BUN 41.0 H Creatinine 1.53 H Est GFR ( Amer) 41 L Est GFR (Non-Af Amer) 34 L BUN/Creatinine Ratio 26.8 Glucose 100 Calcium 8.6 Total Bilirubin 0.3 AST 35 ALT 24 Alkaline Phosphatase 57 Total Creatine Kinase CK-MB (CK-2) Myoglobin Troponin I High Sens Total Protein 5.1 L Albumin 1.9 L Globulin 3.2 Albumin/Globulin Ratio 0.6 Adenovirus (PCR) C. pneumoniae DNA (PCR) Coronavirus Type OC43 Coronavirus Type HKU1 Coronavirus Type 229E Coronavirus Type NL63 Human Metapneumovir PCR M. pneumoniae (PCR) Parainfluenza PCR Parainfluenza 2 (PCR) Parainfluenza 3 (PCR) Parainfluenza 4 (PCR) RSV (RT-PCR) Entero/Rhino (PCR) SARS-CoV-2 (PCR) Bordetella pertussis (PCR) B parapertussis DNA PCR Influenza Type A (PCR) Influenza Type B (PCR) POC Glucose 120 H 156 H 11/05/23 11/05/23 11/05/23 20:04 17:19 16:58 WBC RBC Hgb Hct MCV MCH MCHC RDW Plt Count MPV Neut % (Auto) Lymph % (Auto) Runnels % (Auto) Eos % (Auto) Baso % (Auto) Neut # (Auto) Lymph # (Auto) Runnels # (Auto) Eos # (Auto) Baso # (Auto) Abs Immat Gran (auto) Imm/Tot Granulo (auto) Sodium Potassium Chloride Carbon Dioxide Anion Gap BUN Creatinine Est GFR ( Amer) Est GFR (Non-Af Amer) BUN/Creatinine Ratio Glucose Calcium Total Bilirubin AST ALT Alkaline Phosphatase Total Creatine Kinase 75 80 CK-MB (CK-2) 6.01 H* 8.24 H* Myoglobin 85 H Troponin I High Sens 1858.7 H* 2259.5 H* Total Protein Albumin Globulin Albumin/Globulin Ratio Adenovirus (PCR) C. pneumoniae DNA (PCR) Coronavirus Type OC43 Coronavirus Type HKU1 Coronavirus Type 229E Coronavirus Type NL63 Human Metapneumovir PCR M. pneumoniae (PCR) Parainfluenza PCR Parainfluenza 2 (PCR) Parainfluenza 3 (PCR) Parainfluenza 4 (PCR) RSV (RT-PCR) Entero/Rhino (PCR) SARS-CoV-2 (PCR) Bordetella pertussis (PCR) B parapertussis DNA PCR Influenza Type A (PCR) Influenza Type B (PCR) POC Glucose 109 H 11/05/23 11/05/23 12:54 11:58 WBC RBC Hgb Hct MCV MCH MCHC RDW Plt Count MPV Neut % (Auto) Lymph % (Auto) Runnels % (Auto) Eos % (Auto) Baso % (Auto) Neut # (Auto) Lymph # (Auto) Runnels # (Auto) Eos # (Auto) Baso # (Auto) Abs Immat Gran (auto) Imm/Tot Granulo (auto) Sodium Potassium Chloride Carbon Dioxide Anion Gap BUN Creatinine Est GFR ( Amer) Est GFR (Non-Af Amer) BUN/Creatinine Ratio Glucose Calcium Total Bilirubin AST ALT Alkaline Phosphatase Total Creatine Kinase CK-MB (CK-2) Myoglobin Troponin I High Sens Total Protein Albumin Globulin Albumin/Globulin Ratio Adenovirus (PCR) Not detected C. pneumoniae DNA (PCR) Not detected Coronavirus Type OC43 Not detected Coronavirus Type HKU1 Not detected Coronavirus Type 229E Not detected Coronavirus Type NL63 Not detected Human Metapneumovir PCR Not detected M. pneumoniae (PCR) Not detected Parainfluenza PCR Not detected Parainfluenza 2 (PCR) Not detected Parainfluenza 3 (PCR) Not detected Parainfluenza 4 (PCR) Not detected RSV (RT-PCR) Not detected Entero/Rhino (PCR) Not detected SARS-CoV-2 (PCR) Not detected Bordetella pertussis (PCR) Not detected B parapertussis DNA PCR Not detected Influenza Type A (PCR) Not detected Influenza Type B (PCR) Not detected POC Glucose 154 H Discharge Plan Discharge Disposition: Xfer SNF Condition: Good Discharge Medications: New aspirin 81 mg Tablet,Chewable 81 mg PO QD 30 Days Qty: 30 0RF oxycodone 5 mg Tablet 5 mg PO Q6H PRN (Reason: Pain Scale 4-6) 2 Days Qty: 8 0RF doxycycline hyclate 100 mg tablet 100 mg PO BID 7 Days Qty: 14 0RF Continued clopidogrel 75 mg tablet 75 mg PO DAILY duloxetine 30 mg capsule,delayed release(DR/EC) 30 mg PO DAILY famotidine 40 mg tablet 40 mg PO .qhs fludrocortisone 0.1 mg tablet 0.05 mg PO DAILY liothyronine 5 mcg tablet 10 mcg PO DAILY montelukast 10 mg tablet 10 mg PO DAILY midodrine 10 mg tablet 10 mg PO TID pantoprazole 40 mg tablet,delayed release (DR/EC) 40 mg PO DAILY trazodone 150 mg tablet 150 mg PO BEDTIME Patient Comments: 75-150 mg at qhs sucralfate 1 gram tablet 1 g PO BID rosuvastatin 20 mg tablet 20 mg PO DAILY ranolazine 1,000 mg tablet extended release 12 hr 500 mg PO Q12H pregabalin 50 mg capsule 50 mg PO .qhs calcium citrate 250 mg calcium tablet 250 mg PO DAILY Santyl 250 unit/gram ointment 1 applic TOPICAL QPM Patient Comments: gangrene on toe on right foot dapagliflozin propanediol [Farxiga] 10 mg tablet 10 mg PO QAM ipratropium bromide 21 mcg (0.03 %) spray,non-aerosol 2 spray INTRANASAL DAILY PRN (Reason: allergy symptoms) cholecalciferol (vitamin D3) 125 mcg (5,000 unit) capsule 5,000 unit PO TID Entresto 24-26 mg tablet 0.5 tab PO BID spironolactone 25 mg tablet 12.5 mg PO DAILY midodrine 10 mg tablet 10 mg PO TID PRN (Reason: hypotension) Rx Instructions: in addition to the scheduled doses torsemide 20 mg tablet 10 mg PO DAILY Held bisoprolol fumarate 5 mg tablet 2.5 mg PO DAILY Hold Instructions: Resume on 11/13/23. Hold for hypotension while taking pain medications. 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 Follow up with [facility] Cardiology after d/c from nursing facility Discharge location: Discharge to the [facility]
--- NOTE | 2023-11-06 12:10 | SWNOTE1 ---
Pt is ready for dc today. Pt is going to [facility] skilled. BRIANNA sent over dc med rec, labs, vitals, and therapy notes to Get at [facility]. BRIANNA set up trips for 4-4:30. BRIANNA notified nursing, patient, and [facility] of time. BRIANNA took packet to ICU.
[2023-11-06 12:15] LABS: Glucometer 225 mg/dL (74-106)
[2023-11-06] MEDS: INSULIN ASPART 300 UNIT/3 ML PEN SUBQ (12:19)
[2023-11-06] MEDS: ONDANSETRON PF 4 MG/2 ML VIAL IV (13:33)
== END 2023-11-06 16:10 | DRG 551 ==
LOC: ER 02:58 → MS 04:40 → ICU 11-05 01:58
PROVIDERS: Internal Medicine Cardiovascular Disease; Nurse Practitioner Acute Care; Admitting Provider Family Medicine; Emergency Provider Emergency Medicine; Visit Provider Family Medicine
DX: S32.10XA Unspecified fracture of sacrum, initial encounter for closed fracture (principal); I21.4 Non-ST elevation (NSTEMI) myocardial infarction; J18.9 Pneumonia, unspecified organism; J96.01 Acute respiratory failure with hypoxia; S32.592A Other specified fracture of left pubis, initial encounter for closed fracture; N17.9 Acute kidney failure, unspecified; I50.42 Chronic combined systolic (congestive) and diastolic (congestive) heart failure; W19.XXXA Unspecified fall, initial encounter; M25.511 Pain in right shoulder; E86.0 Dehydration; E03.9 Hypothyroidism, unspecified; K21.9 Gastro-esophageal reflux disease without esophagitis; I25.10 Atherosclerotic heart disease of native coronary artery without angina pectoris; Z95.1 Presence of aortocoronary bypass graft; Z79.899 Other long term (current) drug therapy; Z79.890 Hormone replacement therapy; Z87.891 Personal history of nicotine dependence; Z86.73 Personal history of transient ischemic attack (TIA), and cerebral infarction without residual deficits; Z96.651 Presence of right artificial knee joint; I95.9 Hypotension, unspecified; Z20.822 Contact with and (suspected) exposure to COVID-19; Y95 Nosocomial condition; Z66 Do not resuscitate
CPT/HCPCS: 0202U; 36415; 36600; 51702; 70450; 71045; 71275; 72125; 73030; 73060; 73502; 73700; 80048; 80053; 81001; 82550; 82553; 82805; 82948; 83874; 83880; 84484; 85025; 85378; 87070; 93005; 93308; 94640; 94667; 94668; 94761; 94799; 96361; 96365; 96366; 96367; 96368; 96375; 96376; 97161; 97165; 97530; 97535; 99285; J0456; Q9967

== ENCOUNTER 2023-11-17 03:48 | Outpatient (REF) | payer MEDICARE, SELFPAY ==
--- OUTSIDE RECORDS SUMMARY | 2023-11-17 03:54 | XMS_ITS | CCD ---
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 Primary Care Provider AngeliaWaqas chamorro Hattie Unavailable [phone] Antonio Kim Unavailable Virginia Marti Unavailable JR Tushar Solano Primary Care Provider [phone] ZAC Marti Attending Provider RUSS, DR DE [...] Attending Unavailable VALONE, DR DE Admitting Unavailable ALEXANDRIA, DR YARY Burleson Consulting Unavailable Russ Dewey, [...] Translations: [atorvastatin] Drug Allergy 06-18-20 16 Hives, [facility] (12 sources) Cefadroxil; Translations: [cefadroxil] Drug Allergy 06-18-20 16 [facility] (14 sources) Codeine; Translations: [Codeine] Drug Allergy 10-12-19 15 Hives, Hallucinations [facility] (3 sources) Dipyridamole; Translations: [dipyridamole] Drug Allergy 05-30-20 21 Unknown Reaction [facility] (6 sources) Fenofibrate; Translations: [fenofibrate] Drug Allergy 06-18-20 16 Other [facility] (12 sources) fluvoxaMINE; Translations: [fluvoxamine] Drug Allergy 06-18-20 16 [facility] (12 sources) nefazodone; Translations: [nefazodone] Drug Allergy 06-18-20 16 [facility] (12 sources) Niacin; Translations: [niacin] Drug Allergy 06-18-20 16 [facility] (6 sources) Simvastatin; Translations: [simvastatin] Drug Allergy 05-30-20 21 [facility] (1 source) Aspirin / Dipyridamole Drug Allergy 07-14-19 13 [facility] (1 source) Cefadroxil Drug Allergy 10-12-19 15 [facility] (1 source) Dextroamphetamine Drug Allergy 10-12-19 15 [facility] (1 source) Fenofibrate Drug Allergy 10-12-19 15 [facility] (1 source) fluvoxaMINE Drug Allergy 10-12-19 15 [facility] (1 source) nefazodone Drug Allergy 10-12-19 15 [facility] (1 source) Niacin Drug Allergy 10-12-19 15 [facility] (1 source) Simvastatin Drug Allergy 10-12-19 15 [facility] (3 sources) Aspirin / Dipyridamole Drug Allergy 04-08-20 23 Other [facility] Work Phone: (3 sources) Fluconazole Allergy to substance 04-08-20 23 Rash [facility] (3 sources) Aspirin / Dipyridamole; Translations: [ASPIRIN-DIPYRIDAMOL E] Drug Allergy 06-18-20 16 [employer] Work Phone: (6 sources) Fenofibrate; Translations: [FENOFIBRATE MICRONIZED] Drug Allergy 06-18-20 16 [employer] (4 sources) Metoprolol; Translations: [METOPROLOL] Drug Allergy 09-09-19 24 Other (See Comments) [employer] Medications Current Medications Medication Drug Class(es) Dates [...] Start: 11-25-2022 take 2 tablets by mo [facility] once daily calcium citrate 250 mg [...] Active Start: 08-10-2019 take 1 tablet by [facility] once daily Cholecalciferol (Vitamin D3) (Vitamin D3) 2,000 unit Tablet Active 2000 UNIT PO Daily August 10, 2019 12:00am cholecalciferol (Vitamin D-3) 25 MCG tablet Take 12.5 mcg by mouth in the morning and 12.5 mcg in the evening and 12.5 mcg before bedtime. 0 Active take 1 tablet by [facility] once daily cholecalciferol 25 MCG (1000 UNIT) [...] mg/ml ophthalmic solution (3 sources) Plasma Volume Drupal Developer, Non-Standardized Chemical Allergen Artificial Tear Solution (Soothe [...] by mouth every week Ergocalciferol 1.25 MG (93143 UT) capsule Take 1 capsule by mouth [...] Anti-coagulant Start: 10-13-2023 End: 10-14-2023 heparin infusion 30224 units/500 mL in 0.45% NaCl (50 units/mL [...] graft with unstable angina pectoris, unspecified whether [place] or transplanted heart ([facility]) Take 1 tablet (1,000 mg total) by [...] Coronary arteriosclerosis; Translations: [Atherosclerotic heart disease of [place] coronary artery without angina pectoris] Onset: 10-19-2020 03-05-2023 Chronic Coronary atherosclerosis and other heart disease (1 source) Coronary atherosclerosis and other heart disease; Translations: [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 ([id number]) [address], [address] [place] [address] Calcium [Mass/Vol] 8.0 mg/dL Low 8.5-10.5 [facility] Comment on above: Performed By: #### P INR, 67140-0, 718-7, PLTCT, BMP, 07625-8 #### [facility] ([id number]) [address], [address] [place] [address] Chloride [Moles/Vol] 97 mmol/L Low 98-109 [facility] Comment on above: Performed By: #### P INR, 90620-8, 718-7, PLTCT, BMP, 56951-9 #### [facility] ([id number]) [address], [address] [place] [address] CO2 [Moles/Vol] 28 mmol/L Normal 22-32 [facility] Comment on above: Performed By: #### P INR, 28562-4, 718-7, PLTCT, BMP, 58061-9 #### [facility] ([id number]) [address], [address] [place] [address] Creatinine [Mass/Vol] 0.88 mg/dL Normal 0.40-1.00 [facility] Comment on above: Result Comment: METH OD TRACEABLE TO IDMS STANDARD Performed By: #### P INR, 53420-1, 718-7, PLTCT, BMP, 62782-6 #### [facility] ([id number]) [address], [address] [place] [address] GFR/1.73 sq M.predicted among non-blacks MDRD (S/P/Bld) [Vol rate/Area] 71 mL/min/{1.73_m2} Normal >59 [facility] Comment on above: Result Comment: Reported eGFR is based on the CKD-EPI 2020 equation that does not use a race coefficient. Performed By: #### P INR, 69119-0, 718-7, PLTCT, BMP, 48386-0 #### [facility] ([id number]) [address], [address] [place] [address] Glucose [Mass/Vol] 138 mg/dL High 65-99 [facility] Comment on above: Performed By: #### P INR, 41357-0, 718-7, PLTCT, BMP, 18494-8 #### [facility] ([id number]) [address], [address] [place] [address] Potassium [Moles/Vol] 4.8 mmol/L Normal 3.5-5.0 [facility] Comment on above: Result Comment: SPEC IMEN HEMOLYZED, RESULTS INCREASED MODERATELY HEMOLYZED Performed By: #### P INR, 09572-9, 718-7, PLTCT, BMP, 20225-9 #### [facility] ([id number]) [address], [address] [place] [address] Sodium [Moles/Vol] 140 mmol/L Normal 134-146 [facility] Comment on above: Performed By: #### P INR, 02511-3, 718-7, PLTCT, BMP, 17577-3 #### [facility] ([id number]) [address], [address] [place] [address] Urea nitrogen [Mass/Vol] 20 mg/dL Normal 5-27 [facility] Comment on above: Performed By: #### P INR, 66493-9, 8-7, PLTCT, BMP, #### [facility] ([id number]) [address], [address] [place] [address] Basic Metabolic Panelon Anion gap [Moles/Vol] 15 mmol/L 5 - 15 mmol/L [facility] Calcium [Mass/Vol] 8.0 mg/dL Low 8.5 - 10. 5 mg/dL [facility] Chloride [Moles/Vol] 97 mmol/L Low 98 - 109 mmol/L [facility] CO2 [Moles/Vol] 28 mmol/L 22 - 32 mmol/L [facility] Creatinine [Mass/Vol] 0.88 mg/dL 0.40 - 1.00 mg/dL [facility] Comment on above: METHOD TRACEABLE TO IDIL STANDARD eGFR (CKD-EPI)non-race dependent 71 - PINF [facility] Comment on above: Reported eGFR is based on the CKD-EPI 2020 equation that does not use a race coefficient. Glucose [Mass/Vol] 138 mg/dL High 65 - 99 mg/dL [facility] Potassium [Moles/Vol] 4.8 mmol/L 3.5 - 5.0 mmol/L [facility] Comment on above: SPECIMEN HEMOLYZED, RESULTS INCREASED MODERATELY HEMOLYZED Sodium [Moles/Vol] 140 mmol/L 134 - 146 mmol/L [facility] Urea nitrogen [Mass/Vol] 20 mg/dL 5 - 27 mg/dL [facility] CBC AND AUTO DIFFon 10-15-19 24 ABSOLUTE BASOPHIL 0.0 X10E9/L Normal 0.0-0.2 [facility] Comment on above: Performed By: #### P INR, 19227-6, 718-7, PLTCT, BMP, 55349-4 #### [facility] ([id number]) [address], [address] [place] [address] ABSOLUTE NEUTROPHIL 4.6 X10E9/L Normal 1.5-6.6 [facility] Comment on above: Performed By: #### P INR, 06036-9, 718-7, PLTCT, BMP, 80518-4 #### [facility] ([id number]) [address], [address] [place] [address] Basophils/100 WBC (Bld) 0.4 % Normal [facility] Comment on above: Performed By: #### P INR, 97473-0, 718-7, PLTCT, BMP, 56217-4 #### [facility] ([id number]) [address] [address] Eosinophils (Bld) [#/Vol] 0.0 10*3/uL Normal 0.0-0.4 [facility] Comment on above: Performed By: #### P INR, 86125-0, 8-7, PLTCT, BMP, 50010-0 #### [facility] ([id number]) [address] [address] Eosinophils/100 WBC (Bld) 0.3 % Normal [facility] Comment on above: Performed By: #### P INR, 56523-5, 718-7, PLTCT, BMP, 36982-6 #### [facility] ([id number]) [address] [facility] [place] [address] Erythrocyte distribution width (RBC) [Ratio] 12.7 % Normal 11.5-15.0 [facility] Comment on above: Performed By: #### P INR, 42475-8, 718-7, PLTCT, BMP, 94227-9 #### [facility] ([id number]) [address], [address] [place] [address] Hematocrit (Bld) [Volume fraction] 38.1 % Normal 35-47 [facility] Comment on above: Performed By: #### P INR, 05733-7, 718-7, PLTCT, BMP, 07771-1 #### [facility] ([id number]) [address], [address] [place] [address] Lymphocytes (Bld) [#/Vol] 2.2 10*3/uL Normal 1.0-3.5 [facility] Comment on above: Performed By: #### P INR, 59698-6, 718-7, PLTCT, BMP, 00048-3 #### [facility] ([id number]) [address], [facility] [address] [place] [address] Lymphocytes/100 WBC (Bld) 30.4 % Normal [facility] Comment on above: Performed By: #### P INR, 56786-4, 718-7, PLTCT, BMP, 02218-3 #### [facility] ([id number]) [address], [address] [place] [address] MCH (RBC) [Entitic mass] 34.3 pg High 27-34 [facility] Comment on above: Performed By: #### P INR, 97667-7, 8-7, PLTCT, BMP, 57158-9 #### [facility] ([id number]) [address], [address] [place] [address] MCHC (RBC) [Mass/Vol] 33.3 g/dL Normal 32-36 [facility] Comment on above: Performed By: #### P INR, 22498-4, 718-7, PLTCT, BMP, 12757-0 #### [facility] ([id number]) [address], [address] [place] [address] MCV (RBC) [Entitic vol] 103 fL High 80-100 [facility] Comment on above: Performed By: #### P INR, 33366-2, 718-7, PLTCT, BMP, 96421-1 #### [facility] ([id number]) [address], [address] [place] [address] Monocytes (Bld) [#/Vol] 0.4 10*3/uL Normal 0-0.9 [facility] Comment on above: Performed By: #### P INR, 45593-3, 718-7, PLTCT, BMP, 56348-6 #### [facility] ([id number]) [address], [address] [place] [address] Monocytes/100 WBC (Bld) 6.0 % Normal [facility] Comment on above: Performed By: #### P INR, 25639-0, 718-7, PLTCT, BMP, 93503-6 #### [facility] ([id number]) [address], [address] [place] [address] Neutrophils/100 WBC (Bld) 62.9 % Normal [facility] Comment on above: Performed By: #### P INR, 61679-7, 718-7, PLTCT, BMP, 96449-7 #### [facility] ([id number]) [address], [facility] [address] [place] [address] Platelet mean volume (Bld) [Entitic vol] 8.7 fL Normal 7-12 [facility] Comment on above: Performed By: #### P INR, 64827-5, 718-7, PLTCT, BMP, 60901-9 #### [facility] ([id number]) [address], [address] [place] [address] Platelets (Bld) [#/Vol] 229 10*3/uL Normal 150-450 [facility] Comment on above: Performed By: #### P INR, 25415-1, 718-7, PLTCT, BMP, 22842-0 #### [facility] ([id number]) [address], [address] [place] [address] RBC COUNT 3.69 X10E12/L Low 3.80-5.20 [facility] Comment on above: Performed By: #### P INR, 89999-6, 718-7, PLTCT, BMP, 26386-0 #### [facility] ([id number]) [address], [address] [place] [address] WBC (Bld) [#/Vol] 7.3 10*3/uL Normal 4.0-11.0 [facility] Comment on above: Performed By: #### P INR, 69118-6, 718-7, PLTCT, BMP, 28096-6 #### [facility] ([id number]) [address], [address] [place] [address] CBC auto differentialon 04-0 Basophils (Bld) [#/Vol] 0.0 10*3/uL [facility] Basophils/100 WBC (Bld) 0.4 % [facility] Eosinophils (Bld) [#/Vol] 0.0 10*3/uL [facility] Eosinophils/100 WBC (Bld) 0.3 % [facility] Erythrocyte distribution width (RBC) [Ratio] 12.7 % 11.5 - 15.0 % [facility] Hematocrit (Bld) [Volume fraction] 38.1 % 35 - 47 % [facility] Hemoglobin (Bld) [Mass/Vol] 12.7 g/dL 11.7 - 15.5 g/dL [facility] Interpretation and review of laboratory results Abnormal [facility] Lymphocytes (Bld) [#/Vol] 2.2 10*3/uL [facility] Lymphocytes/100 WBC (Bld) 30.4 % [facility] MCH (RBC) [Entitic mass] 34.3 pg High 27 - 34 pg [facility] MCHC (RBC) [Mass/Vol] 33.3 g/dL 32 - 36 g/dL [facility] MCV (RBC) [Entitic vol] 103 fL High 80 - 100 fL [facility] Monocytes (Bld) [#/Vol] 0.4 10*3/uL [facility] Monocytes/100 WBC (Bld) 6.0 % [facility] Neutrophils (Bld) [#/Vol] 4.6 10*3/uL [facility] Neutrophils/100 WBC (Bld) 62.9 % [facility] Platelet mean volume (Bld) [Entitic vol] 8.7 fL 7 - 12 fL [facility] Platelets (Bld) [#/Vol] 229 10*3/uL [facility] RBC (Bld) [#/Vol] 3.69 10*6/uL Low [facility] WBC corrected for nucl RBC Auto (Bld) [#/Vol] 7.3 [facility] CREATININEon 10-15-2023 Creatinine [Mass/Vol] 0.81 mg/dL Normal 0.40-1.00 [facility] Comment on above: Result Comment: METH OD TRACEABLE TO IDMS STANDARD Performed By: #### P INR, 74698-0, 718-7, PLTCT, BMP, 10631-1 #### [facility] ([id number]) [address] [place] [address] GFR/1.73 sq M.predicted among non-blacks MDRD (S/P/Bld) [Vol rate/Area] 79 mL/min/{1.73_m2} Normal >59 [facility] Comment on above: Result Comment: Reported eGFR is based on the CKD-EPI 2020 equation that does not use a race coefficient. Performed By: #### P INR, 84721-3, 718-7, PLTCT, BMP, 71995-1 #### [facility] ([id number]) [address] [place] [address] Creatinine includes GFR, ser umon 10-15-2023 Creatinine [Mass/Vol] 0.81 mg/dL 0.40 - 1.00 mg/dL [facility] Comment on above: METHOD TRACEABLE TO IDMS STANDARD eGFR (CKD-EPI)non-race dependent 79 - PINF [facility] Comment on above: Reported eGFR is based on the CKD-EPI 2020 equation that does not use a race coefficient. HEMOGLOBINon 10-15-2023 Hemoglobin (Bld) [Mass/Vol] 12.7 g/dL Normal 11.7-15.5 [facility] Comment on above: Performed By: #### P INR, 34665-7, 718-7, PLTCT, BMP, 37128-0 #### [facility] ([id number]) [address] [place] [address] Hemoglobinon 10-15-2023 Hemoglobin (Bld) [Mass/Vol] 12.7 g/dL 11.7 - 15.5 g/dL [facility] Ionized magnesiumon 10-15-19 Magnesium Ionized ISE (Bld) [Moles/Vol] 0.53 mmol/L 0.45 - 0.74 mmol/L [facility] Comment on above: NEW REFERENCE RANGE MAGNESIUMon 10-15-2023 Magnesium [Mass/Vol] 1.8 mg/dL Normal 1.8-2.6 [facility] Comment on above: Result Comment: SPEC IMEN HEMOLYZED, RESULTS INCREASED MARKEDLY HEMOLYZED Performed By: #### P INR, 43420-3, 718-7, PLTCT, BMP, 89943-8 #### [facility] ([id number]) [address] [place] [address] Magnesiumon 10-15-2023 Magnesium [Mass/Vol] 1.8 mg/dL 1.8 - 2.6 mg/dL [facility] Comment on above: SPECIMEN HEMOLYZED, RESULTS INCREASED MARKEDLY HEMOLYZED Magnesium Ionized ISE (Bld) [Moles/Vol]on 10-15-2023 Magnesium [Moles/Vol] 0.53 mmol/L Normal 0.45-0.74 [facility] Comment on above: Result Comment: NEW REFERENCE RANGE Performed By: #### P INR, 12251-9, 718-7, PLTCT, BMP, 62472-9 #### [facility] ([id number]) [address], [address] [place] [address] [facility] No Panel Informationon 10-14 Interpretation and review of laboratory results Abnormal [facility] PHOSPHORUSon 10-15-2023 Phosphate [Mass/Vol] 5.7 mg/dL High 2.4-4.9 [facility] Comment on above: Result Comment: SPEC IMEN HEMOLYZED, RESULTS INCREASED MODERATELY HEMOLYZED Performed By: #### P INR, 72041-0, 718-7, PLTCT, BMP, 95270-5 #### [facility] ([id number]) [address], [address] [place] [address] PLATELET COUNT AND MPVon Platelet mean volume (Bld) [Entitic vol] 8.3 fL Normal 7-12 [facility] Comment on above: Performed By: #### P INR, 93919-7, 718-7, PLTCT, BMP, 46369-6 #### [facility] ([id number]) [address], [address] [place] [address] Platelets (Bld) [#/Vol] 219 10*3/uL Normal 150-450 [facility] Comment on above: Performed By: #### P INR, 98855-1, 718-7, PLTCT, BMP, 33300-2 #### [facility] ([id number]) [address], [address] [place] [address] Phosphoruson 10-15-2023 Phosphate [Mass/Vol] 5.7 mg/dL High 2.4 - 4.9 mg/dL [facility] Comment on above: SPECIMEN HEMOLYZED, RESULTS INCREASED MODERATELY HEMOLYZED Platelet counton 10-15-2023 Platelet mean volume (Bld) [Entitic vol] 8.3 fL 7 - 12 fL [facility] Platelets (Bld) [#/Vol] 219 10*3/uL [facility] XR Chest Single viewon 10-14 Kay Dunn, DO - 10/15/2023 Procedure: Chest x-ray performed Number of views:AP view History:Hypoxia Comparison:10/12/2023 Findings: The heart and mediastinal silhouette are stable. There is pulmonary vascular congestion. There are no focal consolidations. There is a small left pleural effusion. There is no pneumothorax Impression: Pulmonary vascular congestion. Finalized by Kay Dunn DO on 10/15/2023 10:48 AM [facility] Chest Single viewOrdered By: Kay Dunn on 10-15-2023 [employer] Work Phone: Anti XA unfractionated hepar inon 10-14-2023 Heparin unfractionated Chromogenic method Qn (PPP) Low [facility] Comment on above: Optimal time for marky ting is 6 hrs post dosage This test is specific for monitoring patients on UFH, and is not recommended for use with other Anti-Xa medications. Heparin unfractionated Chromogenic method Qn (PPP) 0.68 [facility] Comment on above: Optimal time for marky ting is 6 hrs post dosage This test is specific for monitoring patients on UFH, and is not recommended for use with other Anti-Xa medications. BASIC METABOLIC PANLon 10-13 Anion gap [Moles/Vol] 11 mmol/L Normal 5-15 [facility] Comment on above: Performed By: #### P INR, 58758-6, 718-7, PLTCT, BMP, 96101-3 #### [facility] ([id number]) [address] [place] [address] Calcium [Mass/Vol] 7.4 mg/dL Low 8.5-10.5 [facility] Comment on above: Performed By: #### P INR, 89358-1, 718-7, PLTCT, BMP, 56715-1 #### [facility] ([id number]) [address] [place] [address] Chloride [Moles/Vol] 100 mmol/L Normal 98-109 [facility] Comment on above: Performed By: #### P INR, 21363-9, 718-7, PLTCT, BMP, 49767-5 #### [facility] ([id number]) [address], [address] [place] [address] CO2 [Moles/Vol] 30 mmol/L Normal 22-32 [facility] Comment on above: Performed By: #### P INR, 07405-2, 718-7, PLTCT, BMP, 15761-3 #### [facility] ([id number]) [address], [address] [place] [address] Creatinine [Mass/Vol] 1.05 mg/dL High 0.40-1.00 [facility] Comment on above: Result Comment: METH OD TRACEABLE TO IDMS STANDARD Performed By: #### P INR, 93340-5, 718-7, PLTCT, BMP, 02924-8 #### [facility] ([id number]) [address] [place] [address] GFR/1.73 sq M.predicted among non-blacks MDRD (S/P/Bld) [Vol rate/Area] 58 mL/min/{1.73_m2} Low >59 [facility] Comment on above: Result Comment: Reported eGFR is based on the CKD-EPI 2020 equation that does not use a race coefficient. Performed By: #### P INR, 14860-1, 718-7, PLTCT, BMP, 05359-3 #### [facility] ([id number]) [address] [place] [address] Glucose [Mass/Vol] 122 mg/dL High 65-99 [facility] Comment on above: Performed By: #### P INR, 15959-3, 718-7, PLTCT, BMP, 31409-7 #### [facility] ([id number]) [address], [address] [place] [address] Potassium [Moles/Vol] 4.4 mmol/L Normal 3.5-5.0 [facility] Comment on above: Performed By: #### P INR, 33869-4, 718-7, PLTCT, BMP, 66054-3 #### [facility] ([id number]) [address], [address] [place] [address] Sodium [Moles/Vol] 141 mmol/L Normal 134-146 [facility] Comment on above: Performed By: #### P INR, 45478-5, 718-7, PLTCT, BMP, 56752-9 #### [facility] ([id number]) [address], [facility] [address] [place] [address] Urea nitrogen [Mass/Vol] 22 mg/dL Normal 5-27 [facility] Comment on above: Performed By: #### P INR, 30239-5, 718-7, PLTCT, BMP, 64801-1 #### [facility] ([id number]) [address], [facility] [address] [place] [address] Basic Metabolic Panelon 04-0 Anion gap [Moles/Vol] 11 mmol/L 5 - 15 mmol/L [facility] Calcium [Mass/Vol] 7.4 mg/dL Low 8.5 - 10. 5 mg/dL [facility] Chloride [Moles/Vol] 100 mmol/L 98 - 109 mmol/L [facility] CO2 [Moles/Vol] 30 mmol/L 22 - 32 mmol/L [facility] Creatinine [Mass/Vol] 1.05 mg/dL High 0.40 - 1.00 mg/dL [facility] Comment on above: METHOD TRACEABLE TO IDIL STANDARD eGFR (CKD-EPI)non-race dependent 58 Low - PINF [facility] Comment on above: Reported eGFR is based on the CKD-EPI 2020 equation that does not use a race coefficient. Glucose [Mass/Vol] 122 mg/dL High 65 - 99 mg/dL [facility] Interpretation and review of laboratory results Abnormal [facility] Potassium [Moles/Vol] 4.4 mmol/L 3.5 - 5.0 mmol/L [facility] Sodium [Moles/Vol] 141 mmol/L 134 - 146 mmol/L [facility] Urea nitrogen [Mass/Vol] 22 mg/dL 5 - 27 mg/dL [facility] CBC without diffon Erythrocyte distribution width (RBC) [Ratio] 13.0 % 11.5 - 15.0 % [facility] Hematocrit (Bld) [Volume fraction] 37.7 % 35 - 47 % [facility] Hemoglobin (Bld) [Mass/Vol] 12.5 g/dL 11.7 - 15.5 g/dL [facility] Interpretation and review of laboratory results Abnormal [facility] MCH (RBC) [Entitic mass] 34.4 pg High 27 - 34 pg [facility] MCHC (RBC) [Mass/Vol] 33.1 g/dL 32 - 36 g/dL [facility] MCV (RBC) [Entitic vol] 104 fL High 80 - 100 fL [facility] Platelet mean volume (Bld) [Entitic vol] 8.8 fL 7 - 12 fL [facility] Platelets (Bld) [#/Vol] 207 10*3/uL [facility] RBC (Bld) [#/Vol] 3.64 10*6/uL Low [facility] WBC corrected for nucl RBC Auto (Bld) [#/Vol] 8.4 [facility] COMPLETE BLOOD COUNTon 10-13 Erythrocyte distribution width (RBC) [Ratio] 13.0 % Normal 11.5-15.0 [facility] Comment on above: Performed By: #### P INR, 45904-7, 718-7, PLTCT, BMP, 47045-6 #### [facility] ([id number]) [address] [place] [address] Hematocrit (Bld) [Volume fraction] 37.7 % Normal 35-47 [facility] Comment on above: Performed By: #### P INR, 51089-6, 718-7, PLTCT, BMP, 08226-7 #### [facility] ([id number]) [address], [facility] [address] [place] [address] Hemoglobin (Bld) [Mass/Vol] 12.5 g/dL Normal 11.7-15.5 [facility] Comment on above: Performed By: #### P INR, 27158-1, 718-7, PLTCT, BMP, 61056-7 #### [facility] ([id number]) [address], [address] [address] MCH (RBC) [Entitic mass] 34.4 pg High 27-34 [facility] Comment on above: Performed By: #### P INR, 98432-6, 718-7, PLTCT, BMP, 59348-7 #### [facility] ([id number]) [address], [address] [address] MCHC (RBC) [Mass/Vol] 33.1 g/dL Normal 32-36 [facility] Comment on above: Performed By: #### P INR, 35495-4, 718-7, PLTCT, BMP, 41746-8 #### [facility] ([id number]) [address] [address] MCV (RBC) [Entitic vol] 104 fL High 80-100 [facility] Comment on above: Performed By: #### P INR, 89459-2, 718-7, PLTCT, BMP, 77509-7 #### [facility] ([id number]) [address] [address] Platelet mean volume (Bld) [Entitic vol] 8.8 fL Normal 7-12 [facility] Comment on above: Performed By: #### P INR, 80619-9, 718-7, PLTCT, BMP, 81232-1 #### [facility] ([id number]) [address], [address] [address] Platelets (Bld) [#/Vol] 207 10*3/uL Normal 150-450 [facility] Comment on above: Performed By: #### P INR, 23288-0, 718-7, PLTCT, BMP, 69458-8 #### [facility] ([id number]) [address] [address] RBC COUNT 3.64 X10E12/L Low 3.80-5.20 [facility] Comment on above: Performed By: #### P INR, 34382-3, 718-7, PLTCT, BMP, 61014-2 #### [facility] ([id number]) [address] [address] WBC (Bld) [#/Vol] 8.4 10*3/uL Normal 4.0-11.0 [facility] Comment on above: Performed By: #### P INR, 34828-4, 718-7, PLTCT, BMP, 79230-9 #### [facility] ([id number]) [address] [address] Calcium.ionized (Bld) [Mass/ Vol]on 10-14-2023 IONIZED CALCIUM 4.3 mg/dL Low 4.5-5.3 [facility] Comment on above: Performed By: #### P INR, 16456-5, 718-7, PLTCT, BMP, 27621-4 #### [facility] ([id number]) [address] [address] Interpretation and review of laboratory results Abnormal [facility] IONIZED CALCIUM 3.9 mg/dL Low 4.5-5.3 [facility] Comment on above: Performed By: #### P INR, 40174-3, 718-7, PLTCT, BMP, 47976-2 #### [facility] ([id number]) [address] [place] [address] Interpretation and review of laboratory results Abnormal [facility] IONIZED CALCIUM 4.1 mg/dL Low 4.5-5.3 [facility] Comment on above: Performed By: #### P INR, 24272-5, 718-7, PLTCT, BMP, 87511-0 #### [facility] ([id number]) [address], [address] [place] [address] Interpretation and review of laboratory results Abnormal [facility] Coronary angiography perform edon 10-14-2023 Addendum by [...] the distal LAD after that reconstitutes via [id number] collaterals. The vessel is extremely small and not amenable to PCI. Intervention No interventions have been documented. Right Atrium Normal left and right heart filling pressures. Normal pulmonary arterial pressure mildly elevated left ventricular end-diastolic pressure normal cardiac output and cardiac index. [facility] Radiology Study observation (narrative) [facility] ECG 12 leadon 10-14-2023 TRACEMASTERVUE [facility] HGB A1C (GLYCO-HGB)on 2023 Glucose [Mass/Vol] 91 mg/dL Normal [facility] Comment on above: Performed By: #### P INR, 14954-7, 718-7, PLTCT, BMP, 03818-9 #### [facility] ([id number]) [address] [place] [address], [facility] [address] [place] [address] HbA1c (Bld) [Mass fraction] 4.8 % Normal 4.4-5.6 [facility] Comment on above: Result Comment: NOTE ADA Guidelines Result HgbA1c Normal : less than 5.7 % Prediabetes : 5.7 % to 6.4 % Diabetes : > 6.4 % Use with caution in patients with abnormal hemoglobin variants as the half-life of red blood cells and in vivo glycation rates are affected. Performed By: #### P INR, 84638-2, 718-7, PLTCT, BMP, 31978-4 #### [facility] ([id number]) [address] [place] [address] Hemoglobin A1con 10-14-2023 Average glucose Estimated from glycated hemoglobin (Bld) [Mass/Vol] 91 mg/dL [facility] HbA1c (Bld) [Mass fraction] 4.8 % 4.4 - 5.6 % [facility] Comment on above: NOTE ADA Guidelines Result HgbA1c Normal : less than 5.7 % Prediabetes : 5.7 % to 6.4 % Diabetes : > 6.4 % Use with caution in patients with abnormal hemoglobin variants as the half-life of red blood cells and in vivo glycation rates are affected. [facility] Heparin unfractionated Chrom ogenic method Qn (PPP)on 10-14-2023 ANTI XA UFH <0.04 Low 0.30-0.70 [facility] Comment on above: Result Comment: Opti mal time for testing is 6 hrs post dosage This test is specific for monitoring patients on UFH, and is not recommended for use with other Anti-Xa medications. Performed By: #### P INR, 12385-6, 718-7, PLTCT, BMP, 81038-6 #### [facility] ([id number]) [address], [address] [place] [address] Interpretation and review of laboratory results Abnormal [facility] ANTI XA UFH 0.68 IU/mL Normal 0.30-0.70 [facility] Comment on above: Result Comment: Opti mal time for testing is 6 hrs post dosage This test is specific for monitoring patients on UFH, and is not recommended for use with other Anti-Xa medications. Performed By: #### P INR, 53468-7, 718-7, PLTCT, BMP, 51955-8 #### [facility] ([id number]) [address], [address] [place] [address] [facility] Ionized calciumon 10-14-2023 Calcium.ionized (Bld) [Mass/Vol] 4.3 mg/dL Low 4.5 - 5.3 mg/dL [facility] Calcium.ionized (Bld) [Mass/Vol] 3.9 mg/dL Low 4.5 - 5.3 mg/dL [facility] Calcium.ionized (Bld) [Mass/Vol] 4.1 mg/dL Low 4.5 - 5.3 mg/dL [facility] Ionized magnesiumon 10-14-19 Magnesium Ionized ISE (Bld) [Moles/Vol] 0.54 mmol/L 0.45 - 0.74 mmol/L [facility] Comment on above: NEW REFERENCE RANGE Lipid 1996 panelon 4 Cholesterol [Mass/Vol] 135 mg/dL Low 150-200 [facility] Comment on above: Performed By: #### P INR, 84492-0, 718-7, PLTCT, BMP, 24638-5 #### [facility] ([id number]) [address], [address] [place] [address] Cholesterol in HDL [Mass/Vol] 59 mg/dL Normal >39 [facility] Comment on above: Result Comment: HDL <40 mg/dL - High Risk HDL > or = 40mg/dL- Desirable HDL >60 mg/dL - Negative Risk Performed By: #### P INR, 71786-3, 718-7, PLTCT, BMP, 31491-4 #### [facility] ([id number]) [address], [address] [place] [address] Cholesterol in LDL [Mass/Vol] 46 mg/dL Normal <130 [facility] Comment on above: Result Comment: LDL <100 mg/dL - Desirable LDL >160 mg/dL - High Risk Performed By: #### P INR, 54146-1, 718-7, PLTCT, BMP, 05779-5 #### [facility] ([id number]) [address], [address] [place] [address] Cholesterol in VLDL [Mass/Vol] 30 mg/dL Normal 0-30 [facility] Comment on above: Performed By: #### P INR, 67457-3, 718-7, PLTCT, BMP, 94781-7 #### [facility] ([id number]) [address] [place] [address] CHOLESTEROL:HDL 2.3 Normal 1.0-5.0 [facility] Comment on above: Performed By: #### P INR, 11385-1, 718-7, PLTCT, BMP, 68839-2 #### [facility] ([id number]) [address], [address] [place] [address] Triglyceride [Mass/Vol] 150 mg/dL Normal 27-150 [facility] Comment on above: Performed By: #### P INR, 16410-8, 718-7, PLTCT, BMP, 86219-5 #### [facility] ([id number]) [address], [address] [place] [address] Cholesterol [Mass/Vol] 135 mg/dL Low 150 - 200 mg/dL [facility] Cholesterol in HDL [Mass/Vol] 59 mg/dL 39 - PINF mg/dL [facility] Comment on above: HDL <40 mg/dL - High Risk HDL > or = 40mg/dL- Desirable HDL >60 mg/dL - Negative Risk Cholesterol in LDL [Mass/Vol] 46 mg/dL NINF - 130 mg/dL [facility] Comment on above: LDL <100 mg/dL - Desirable LDL >160 mg/dL - High Risk Cholesterol in VLDL [Mass/Vol] 30 mg/dL 0 - 30 mg/dL [facility] Cholesterol.total/ Cholesterol in HDL [Mass ratio] 2.3 {ratio} 1.0 - 5.0 [facility] Interpretation and review of laboratory results Abnormal [facility] Triglyceride [Mass/Vol] 150 mg/dL 27 - 150 mg/dL [facility] MAGNESIUMon 10-14-2023 Magnesium [Mass/Vol] 1.8 mg/dL Normal 1.8-2.6 [facility] Comment on above: Performed By: #### P INR, 52734-6, 718-7, PLTCT, BMP, 24545-1 #### [facility] ([id number]) [address] [place] [address] Magnesiumon 10-14-2023 Magnesium [Mass/Vol] 1.8 mg/dL 1.8 - 2.6 mg/dL [facility] Magnesium Ionized ISE (Bld) [Moles/Vol]on 10-14-2023 Magnesium [Moles/Vol] 0.54 mmol/L Normal 0.45-0.74 [facility] Comment on above: Result Comment: NEW REFERENCE RANGE Performed By: #### P INR, 87162-0, 718-7, PLTCT, BMP, 48713-7 #### [facility] ([id number]) [address] [place] [address] [facility] No Panel Informationon 10-13 [facility] APTTon 10-13-2023 aPTT Coag (PPP) [Time] 48 s [facility] Anti XA unfractionated hepar inon 10-13-2023 Heparin unfractionated Chromogenic method Qn (PPP) 0.74 [facility] Comment on above: Optimal time for marky ting is 6 hrs post dosage This test is specific for monitoring patients on UFH, and is not recommended for use with other Anti-Xa medications. Heparin unfractionated Chromogenic method Qn (PPP) 0.69 [facility] Comment on above: Optimal time for marky ting is 6 hrs post dosage This test is specific for monitoring patients on UFH, and is not recommended for use with other Anti-Xa medications. Heparin unfractionated Chromogenic method Qn (PPP) 0.72 [facility] Comment on above: Optimal time for marky ting is 6 hrs post dosage This test is specific for monitoring patients on UFH, and is not recommended for use with other Anti-Xa medications. BASIC METABOLIC PANLon 10-12 Anion gap [Moles/Vol] 13 mmol/L Normal 5-15 [facility] Comment on above: Performed By: #### P INR, 50057-9, 718-7, PLTCT, BMP, 68728-0 #### [facility] ([id number]) [address], [address] [place] [address] Calcium [Mass/Vol] 6.3 mg/dL Critically low 8.5-10.5 [facility] Comment on above: Performed By: #### P INR, 70761-4, 718-7, PLTCT, BMP, 63480-6 #### [facility] ([id number]) [address], [address] [place] [address] Chloride [Moles/Vol] 100 mmol/L Normal 98-109 [facility] Comment on above: Performed By: #### P INR, 95598-3, 718-7, PLTCT, BMP, 39631-3 #### [facility] ([id number]) [address], [address] [place] [address] CO2 [Moles/Vol] 30 mmol/L Normal 22-32 [facility] Comment on above: Performed By: #### P INR, 03207-5, 718-7, PLTCT, BMP, 05247-2 #### [facility] ([id number]) [address], [address] [place] [address] Creatinine [Mass/Vol] 0.79 mg/dL Normal 0.40-1.00 [facility] Comment on above: Result Comment: METH OD TRACEABLE TO IDMS STANDARD Performed By: #### P INR, 91479-6, 718-7, PLTCT, BMP, 47431-0 #### [facility] ([id number]) [address], [address] [place] [address] GFR/1.73 sq M.predicted among non-blacks MDRD (S/P/Bld) [Vol rate/Area] 81 mL/min/{1.73_m2} Normal >59 [facility] Comment on above: Result Comment: Reported eGFR is based on the CKD-EPI 2020 equation that does not use a race coefficient. Performed By: #### P INR, 60632-7, 718-7, PLTCT, BMP, 21805-5 #### [facility] ([id number]) [address], [address] [place] [address] Glucose [Mass/Vol] 157 mg/dL High 65-99 [facility] Comment on above: Performed By: #### P INR, 49249-8, 718-7, PLTCT, BMP, 65255-8 #### [facility] ([id number]) [address], [address] [place] [address] Potassium [Moles/Vol] 3.4 mmol/L Low 3.5-5.0 [facility] Comment on above: Performed By: #### P INR, 73063-1, 718-7, PLTCT, BMP, 29602-1 #### [facility] ([id number]) [address], [address] [place] [address] Sodium [Moles/Vol] 143 mmol/L Normal 134-146 [facility] Comment on above: Performed By: #### P INR, 10010-9, 718-7, PLTCT, BMP, 40072-7 #### [facility] ([id number]) [address], [address] [place] [address] Urea nitrogen [Mass/Vol] 16 mg/dL Normal 5-27 [facility] Comment on above: Performed By: #### P INR, 79398-1, 718-7, PLTCT, BMP, 35675-0 #### [facility] ([id number]) [address], [address] [place] [address] Anion gap [Moles/Vol] 15 mmol/L Normal 5-15 [facility] Comment on above: Performed By: #### P INR, 40344-9, 718-7, PLTCT, BMP, 59634-4 #### [facility] ([id number]) [address], [address] [place] [address] Calcium [Mass/Vol] 6.5 mg/dL Critically low 8.5-10.5 [facility] Comment on above: Performed By: #### P INR, 38055-0, 718-7, PLTCT, BMP, 89028-5 #### [facility] ([id number]) [address], [facility] [address] [place] [address] Chloride [Moles/Vol] 100 mmol/L Normal 98-109 [facility] Comment on above: Performed By: #### P INR, 32641-5, 718-7, PLTCT, BMP, 36410-6 #### [facility] ([id number]) [address], [address] [place] [address] CO2 [Moles/Vol] 30 mmol/L Normal 22-32 [facility] Comment on above: Performed By: #### P INR, 47720-7, 718-7, PLTCT, BMP, 34721-0 #### [facility] ([id number]) [address], [address] [place] [address] Creatinine [Mass/Vol] 0.88 mg/dL Normal 0.40-1.00 [facility] Comment on above: Result Comment: METH OD TRACEABLE TO IDMS STANDARD Performed By: #### P INR, 44697-5, 718-7, PLTCT, BMP, 96209-5 #### [facility] ([id number]) [address], [facility] [address] [place] [address] GFR/1.73 sq M.predicted among non-blacks MDRD (S/P/Bld) [Vol rate/Area] 71 mL/min/{1.73_m2} Normal >59 [facility] Comment on above: Result Comment: Reported eGFR is based on the CKD-EPI 2020 equation that does not use a race coefficient. Performed By: #### P INR, 03541-2, 718-7, PLTCT, BMP, 74342-9 #### [facility] ([id number]) [address], [address] [place] [address] Glucose [Mass/Vol] 154 mg/dL High 65-99 [facility] Comment on above: Performed By: #### P INR, 52913-0, 718-7, PLTCT, BMP, 42071-4 #### [facility] ([id number]) [address], [facility] [address] [place] [address] Potassium [Moles/Vol] 3.4 mmol/L Low 3.5-5.0 [facility] Comment on above: Performed By: #### P INR, 07280-9, 718-7, PLTCT, BMP, 83275-7 #### [facility] ([id number]) [address], [address] [place] [address] Sodium [Moles/Vol] 145 mmol/L Normal 134-146 [facility] Comment on above: Performed By: #### P INR, 22107-1, 718-7, PLTCT, BMP, 04426-6 #### [facility] ([id number]) [address], [facility] [address] [place] [address] Urea nitrogen [Mass/Vol] 16 mg/dL Normal 5-27 [facility] Comment on above: Performed By: #### P INR, 57299-3, 718-7, PLTCT, BMP, 32497-9 #### [facility] ([id number]) [address], [facility] [address] [place] [address] Basic Metabolic Panelon 04-0 Anion gap [Moles/Vol] 13 mmol/L 5 - 15 mmol/L [facility] Calcium [Mass/Vol] 6.3 mg/dL Critically low 8.5 - 1 0.5 mg/dL [facility] Chloride [Moles/Vol] 100 mmol/L 98 - 109 mmol/L [facility] CO2 [Moles/Vol] 30 mmol/L 22 - 32 mmol/L [facility] Creatinine [Mass/Vol] 0.79 mg/dL 0.40 - 1.00 mg/dL [facility] Comment on above: METHOD TRACEABLE TO [facility] STANDARD eGFR (CKD-EPI)non-race dependent 81 - PINF [facility] Comment on above: Reported eGFR is based on the CKD-EPI 2021 equation that does not use a race coefficient. Glucose [Mass/Vol] 157 mg/dL High 65 - 99 mg/dL [facility] Interpretation and review of laboratory results Abnormal [facility] Potassium [Moles/Vol] 3.4 mmol/L Low 3.5 - 5.0 mmol/L [facility] Sodium [Moles/Vol] 143 mmol/L 134 - 146 mmol/L [facility] Urea nitrogen [Mass/Vol] 16 mg/dL 5 - 27 mg/dL [facility] Anion gap [Moles/Vol] 15 mmol/L 5 - 15 mmol/L [facility] Calcium [Mass/Vol] 6.5 mg/dL Critically low 8.5 - 1 0.5 mg/dL [facility] Chloride [Moles/Vol] 100 mmol/L 98 - 109 mmol/L [facility] CO2 [Moles/Vol] 30 mmol/L 22 - 32 mmol/L [facility] Creatinine [Mass/Vol] 0.88 mg/dL 0.40 - 1.00 mg/dL [facility] Comment on above: METHOD TRACEABLE TO [facility] STANDARD eGFR (CKD-EPI)non-race dependent 71 - PINF [facility] Comment on above: Reported eGFR is based on the CKD-EPI 2021 equation that does not use a race coefficient. Glucose [Mass/Vol] 154 mg/dL High 65 - 99 mg/dL [facility] Potassium [Moles/Vol] 3.4 mmol/L Low 3.5 - 5.0 mmol/L [facility] Sodium [Moles/Vol] 145 mmol/L 134 - 146 mmol/L [facility] Urea nitrogen [Mass/Vol] 16 mg/dL 5 - 27 mg/dL [facility] CBC AND AUTO DIFFon 10-13-19 ABSOLUTE BASOPHIL 0.0 X10E9/L Normal 0.0-0.2 [facility] Comment on above: Performed By: #### C HENRI, , THYR, 66461-2 #### [facility] ([id number]) [address], [address] [place] [address] ABSOLUTE NEUTROPHIL 4.2 X10E9/L Normal 1.5-6.6 [facility] Comment on above: Performed By: #### Berhane ÁLVAREZ, , THYR, 42222-3 #### [facility] ([id number]) [address], [address] [place] [address] Basophils/100 WBC (Bld) 0.1 % Normal [facility] Comment on above: Performed By: #### Berhane ÁLVAREZ, , THYR, 45276-3 #### [facility] ([id number]) [address], [address] [place] [address] Eosinophils (Bld) [#/Vol] 0.0 10*3/uL Normal 0.0-0.4 [facility] Comment on above: Performed By: #### Berhane ÁLVAREZ, , THYR, 53620-5 #### [facility] ([id number]) [address], [address] [place] [address] Eosinophils/100 WBC (Bld) 0.0 % Normal [facility] Comment on above: Performed By: #### Berhane ÁLVAREZ, , THYR, 12040-2 #### [facility] ([id number]) [address], [address] [place] [address] Erythrocyte distribution width (RBC) [Ratio] 12.5 % Normal 11.5-15.0 [facility] Comment on above: Performed By: #### Berhane ÁLVAREZ, , THYR, 45366-0 #### [facility] ([id number]) [address], [address] [place] [address] Hematocrit (Bld) [Volume fraction] 39.2 % Normal 35-47 [facility] Comment on above: Performed By: #### C BCA, , THYR, 77905-5 #### [facility] ([id number]) [address], [address] [place] [address] Hemoglobin (Bld) [Mass/Vol] 13.2 g/dL Normal 11.7-15.5 [facility] Comment on above: Performed By: #### Berhane BCA, , THYR, 00806-5 #### [facility] ([id number]) [address], [address] [place] [address] Lymphocytes (Bld) [#/Vol] 0.9 10*3/uL Low 1.0-3.5 [facility] Comment on above: Performed By: #### Berhane BCA, , THYR, 25920-8 #### [facility] ([id number]) [address], [address] [place] [address] Lymphocytes/100 WBC (Bld) 17.5 % Normal [facility] Comment on above: Performed By: #### Berhane BCA, , THYR, 50075-3 #### [facility] ([id number]) [address], [address] [place] [address] MCH (RBC) [Entitic mass] 34.6 pg High 27-34 [facility] Comment on above: Performed By: #### C BCA, , THYR, 12159-0 #### [facility] ([id number]) [address], [address] [place] [address] MCHC (RBC) [Mass/Vol] 33.6 g/dL Normal 32-36 [facility] Comment on above: Performed By: #### C BCA, , THYR, 20447-4 #### [facility] ([id number]) [address], [address] [place] [address] MCV (RBC) [Entitic vol] 103 fL High 80-100 [facility] Comment on above: Performed By: #### C BCA, , THYR, 49912-7 #### [facility] ([id number]) [address], [address] [place] [address] Monocytes (Bld) [#/Vol] 0.1 10*3/uL Normal 0-0.9 [facility] Comment on above: Performed By: #### C BCA, , THYR, 90301-4 #### [facility] ([id number]) [address], [address] [place] [address] Monocytes/100 WBC (Bld) 2.5 % Normal [facility] Comment on above: Performed By: #### Berhane BCA, , THYR, 11458-2 #### [facility] ([id number]) [address], [address] [place] [address] Neutrophils/100 WBC (Bld) 79.9 % Normal [facility] Comment on above: Performed By: #### Berhane BCA, , THYR, 85354-7 #### [facility] ([id number]) [address], [address] [place] [address] Platelet mean volume (Bld) [Entitic vol] 8.6 fL Normal 7-12 [facility] Comment on above: Performed By: #### C BCA, , THYR, 61898-9 #### [facility] ([id number]) [address], [address] [place] [address] Platelets (Bld) [#/Vol] 176 10*3/uL Normal 150-450 [facility] Comment on above: Performed By: #### C BCA, 80734-8, THYR, 16349-5 #### [facility] ([id number]) [address], [address] [place] [address] RBC COUNT 3.80 X10E12/L Normal 3.80-5.20 [facility] Comment on above: Performed By: #### Berhane BCA, 73895-7, THYR, 06639-9 #### [facility] ([id number]) [address], [address] [place] [address] WBC (Bld) [#/Vol] 5.3 10*3/uL Normal 4.0-11.0 [facility] Comment on above: Performed By: #### Berhane BCA, 37158-0, THYR, 68161-9 #### [facility] ([id number]) [address], [address] [place] [address] CBC auto differentialon 04-0 Basophils (Bld) [#/Vol] 0.0 10*3/uL [facility] Basophils/100 WBC (Bld) 0.1 % [facility] Eosinophils (Bld) [#/Vol] 0.0 10*3/uL [facility] Eosinophils/100 WBC (Bld) 0.0 % [facility] Erythrocyte distribution width (RBC) [Ratio] 12.5 % 11.5 - 15.0 % [facility] Hematocrit (Bld) [Volume fraction] 39.2 % 35 - 47 % [facility] Hemoglobin (Bld) [Mass/Vol] 13.2 g/dL 11.7 - 15.5 g/dL [facility] Interpretation and review of laboratory results Abnormal [facility] Lymphocytes (Bld) [#/Vol] 0.9 10*3/uL Low [facility] Lymphocytes/100 WBC (Bld) 17.5 % [facility] MCH (RBC) [Entitic mass] 34.6 pg High 27 - 34 pg [facility] MCHC (RBC) [Mass/Vol] 33.6 g/dL 32 - 36 g/dL [facility] MCV (RBC) [Entitic vol] 103 fL High 80 - 100 [facility]L [facility] Monocytes (Bld) [#/Vol] 0.1 10*3/uL [facility] Monocytes/100 WBC (Bld) 2.5 % [facility] Neutrophils (Bld) [#/Vol] 4.2 10*3/uL [facility] Neutrophils/100 WBC (Bld) 79.9 % [facility] Platelet mean volume (Bld) [Entitic vol] 8.6 fL 7 - 12 fL [facility] Platelets (Bld) [#/Vol] 176 10*3/uL [facility] RBC (Bld) [#/Vol] 3.80 10*6/uL [facility] WBC corrected for nucl RBC Auto (Bld) [#/Vol] 5.3 [facility] Calcium.ionized (Bld) [Mass/ Vol]on 10-13-2023 IONIZED CALCIUM 3.9 mg/dL Low 4.5-5.3 [facility] Comment on above: Performed By: #### P INR, 47789-1, 718-7, PLTCT, BMP, 56331-7 #### [facility] ([id number]) [address], [address] [place] [address] Interpretation and review of laboratory results Abnormal [facility] IONIZED CALCIUM 3.8 mg/dL Low 4.5-5.3 [facility] Comment on above: Performed By: #### 3 8230-9, 11710-7 #### [facility] ([id number]) [address], [address] [place] [address] Cardiac echo study Procedure on 10-13-2023 Aortic root 2.90 cm [facility] AV mean gradient 2.00 mmHg [facility] AV peak gradient 3.68 mmHg [facility] AV peak jeannie 95.90 cm/s [facility] AV valve area 2.03 cm2 [facility] AV Velocity Ratio 0.65 [facility] AV VTI 18.60 cm [facility] E wave deceleration time 124.00 msec [facility] E/A ratio 1.81 [facility] FS 11 % 28 - 44 % [facility] Interventricular Septum Diastolic Thickness by 2D 9 cm [facility] IVS 0.90 cm 0.6 - 1.1 cm [facility] LA size 3.10 cm [facility] LA volume 35.80 cm3 [facility] LA Volume Index 20.8 mL/m2 [facility] Left Ventricle Mass [id number] g [facility] LV ESV A2C 39.00 mL [facility] LV ESV A4C 31.30 mL [facility] LV RWT 2D 44.44 [facility] LVIDd 4.50 cm [facility] LVIDs 4.00 cm [facility] LVOT diameter 2.00 cm [facility] LVOT peak jeannie 0.58 m/s [facility] LVOT peak VTI 12.00 cm [facility] LVOT stroke volume 37.70 ml [facility] MV Peak A Jeannie 49.50 cm/s [facility] MV Peak E Jeannie 89.70 cm/s [facility] MV pressure 1/2 time 36.00 ms [facility] MV TDI E' (medial) 10.60 cm/s [facility] MV valve area p 1/2 method 6.11 cm2 [facility] PW 1.00 cm 0.6 - 1.1 cm [facility] RA area 11.2 cm2 [facility] RV diastolic dimension (basal) 30.0 mm [facility] TAPSE 1.04 cm [facility] TDI 11.90 cm/s [facility] TR peak gradient 11.42 mmHg [facility] TR Peak Jeannie 1.7 m/s [facility] Valve area - Index 1.2 [facility] Left Ventricle: Syst olic function is [...] anteroseptal, apical septal and apical inferior. XCELERA [facility] Radiology Study observation (narrative) [facility] EKGon 10-13-2023 TRACEMASTERVUE [facility] Glucose Glucometer (BldC) [M ass/Vol]on 10-13-2023 Glucose [Mass/Vol] 173 mg/dL High 65-99 [facility] HEMOGLOBINon 10-13-2023 Hemoglobin (Bld) [Mass/Vol] 12.8 g/dL Normal 11.7-15.5 [facility] Comment on above: Performed By: #### P INR, 05303-4, 718-7, PLTCT, BMP, 88751-9 #### [facility] ([id number]) [address], [address] [place] [address] Hemoglobinon 10-13-2023 Hemoglobin (Bld) [Mass/Vol] 12.8 g/dL 11.7 - 15.5 g/dL [facility] Heparin unfractionated Chrom ogenic method Qn (PPP)on 10-13-2023 ANTI XA UFH 0.74 IU/mL High 0.30-0.70 [facility] Comment on above: Result Comment: Opti mal time for testing is 6 hrs post dosage This test is specific for monitoring patients on UFH, and is not recommended for use with other Anti-Xa medications. Performed By: #### P INR, 85657-8, 718-7, PLTCT, BMP, 85387-0 #### [facility] ([id number]) [address] [place] [address] Interpretation and review of laboratory results Abnormal [facility] ANTI XA UFH 0.69 IU/mL Normal 0.30-0.70 [facility] Comment on above: Result Comment: Opti mal time for testing is 6 hrs post dosage This test is specific for monitoring patients on UFH, and is not recommended for use with other Anti-Xa medications. Performed By: #### P INR, 20495-1, 718-7, PLTCT, BMP, 11779-5 #### [facility] ([id number]) [address], [address] [place] [address] [facility] ANTI XA UFH 0.72 IU/mL High 0.30-0.70 [facility] Comment on above: Result Comment: Opti mal time for testing is 6 hrs post dosage This test is specific for monitoring patients on UFH, and is not recommended for use with other Anti-Xa medications. Performed By: #### P INR, 20619-9, 718-7, PLTCT, BMP, 76893-0 #### [facility] ([id number]) [address], [address] [place] [address] Interpretation and review of laboratory results Abnormal [facility] Ionized calciumon 10-13-2023 Calcium.ionized (Bld) [Mass/Vol] 3.9 mg/dL Low 4.5 - 5.3 mg/dL [facility] Calcium.ionized (Bld) [Mass/Vol] 3.8 mg/dL Low 4.5 - 5.3 mg/dL [facility] Ionized magnesiumon 10-13-19 Magnesium Ionized ISE (Bld) [Moles/Vol] 0.64 mmol/L 0.45 - 0.74 mmol/L [facility] Comment on above: NEW REFERENCE RANGE Magnesium Ionized ISE (Bld) [Moles/Vol] 0.24 mmol/L Critically low 0.45 - 0.74 mmol/L [facility] Comment on above: NEW REFERENCE RANGE MAGNESIUMon 10-13-2023 Magnesium [Mass/Vol] 1.1 mg/dL Low 1.8-2.6 [facility] Comment on above: Performed By: #### P INR, 59320-0, 718-7, PLTCT, BMP, 38665-2 #### [facility] ([id number]) [address], [address] [place] [address] Magnesiumon 10-13-2023 Magnesium [Mass/Vol] 1.1 mg/dL Low 1.8 - 2.6 mg/dL [facility] Magnesium Ionized ISE (Bld) [Moles/Vol]on 10-13-2023 Magnesium [Moles/Vol] 0.64 mmol/L Normal 0.45-0.74 [facility] Comment on above: Result Comment: NEW REFERENCE RANGE Performed By: #### P INR, 64878-0, 718-7, PLTCT, BMP, 60784-1 #### [facility] ([id number]) [address] [facility], [address] [place] [address] Magnesium [Moles/Vol] 0.24 mmol/L Critically low 0.45-0.74 [facility] Comment on above: Result Comment: NEW REFERENCE RANGE Performed By: #### 3 8230-9, 66594-9 #### [facility] ([id number]) [address] [facility], [address] [place] [address] Magnesium [Mass/Vol]on 10-12 Interpretation and review of laboratory results Abnormal [facility] Natriuretic peptide B [Mass/ Vol]on 10-13-2023 Natriuretic peptide B (Bld) [Mass/Vol] 1101 pg/mL High <100.0 [facility] Comment on above: Performed By: #### P INR, 30566-3, 718-7, PLTCT, BMP, 17887-0 #### [facility] ([id number]) [address] [facility], [address] [address] Interpretation and review of laboratory results Abnormal [facility] Natriuretic peptide B (Bld) [Mass/Vol] 1101 pg/mL High NINF - 100.0 pg/mL [facility] No Panel Informationon 10-12 [facility] Interpretation and review of laboratory results Abnormal [facility] Interpretation and review of laboratory results Abnormal [facility] Interpretation and review of laboratory results Abnormal [facility] PLATELET COUNT AND MPVon Platelet mean volume (Bld) [Entitic vol] 8.8 fL Normal 7-12 [facility] Comment on above: Performed By: #### P INR, 73334-5, 718-7, PLTCT, BMP, 99394-9 #### [facility] ([id number]) [address] [facility], [address] [place] [address] Platelets (Bld) [#/Vol] 158 10*3/uL Normal 150-450 [facility] Comment on above: Performed By: #### P INR, 18568-2, 718-7, PLTCT, BMP, 10607-3 #### [facility] ([id number]) [address] [address] [place] [address] POTASSIUMon 10-13-2023 Potassium [Moles/Vol] 4.5 mmol/L Normal 3.5-5.0 [facility] Comment on above: Performed By: #### P INR, 45991-0, 718-7, PLTCT, BMP, 46817-4 #### [facility] ([id number]) [address] [address] Potassium [Moles/Vol] 3.1 mmol/L Low 3.5-5.0 [facility] Comment on above: Performed By: #### P INR, 37721-2, 718-7, PLTCT, BMP, 52060-7 #### [facility] ([id number]) [address] [address] PROTIME AND INRon 10-13-2023 INR Coag (PPP) [Relative time] 1.4 {INR} High 0.8-1.1 [facility] Comment on above: Performed By: #### P INR, 29738-6, 718-7, PLTCT, BMP, 51769-6 #### [facility] ([id number]) [address] [address] [place] [address] PT Coag (PPP) [Time] 16.6 s High 9.8-13.2 [facility] Comment on above: Performed By: #### P INR, 84170-0, 718-7, PLTCT, BMP, 30261-8 #### [facility] ([id number]) [address] [address] [place] [address] Platelet counton 10-13-2023 Platelet mean volume (Bld) [Entitic vol] 8.8 fL 7 - 12 fL [facility] Platelets (Bld) [#/Vol] 158 10*3/uL [facility] Potassiumon 10-13-2023 Potassium [Moles/Vol] 4.5 mmol/L 3.5 - 5.0 mmol/L [facility] Potassium [Moles/Vol] 3.1 mmol/L Low 3.5 - 5.0 mmol/L [facility] Potassium [Moles/Vol]on [facility] Interpretation and review of laboratory results Abnormal [facility] Protime & INRon 10-13-2023 INR Coag (PPP) [Relative time] 1.4 {INR} High [facility] PT Coag (PPP) [Time] 16.6 s High [facility] THYROID PROFILEon 10-13-2023 Free T4 [Mass/Vol] 1.15 ng/dL Normal 0.61-1.60 [facility] Comment on above: Performed By: #### P INR, 10885-8, 718-7, PLTCT, BMP, 25654-5 #### [facility] ([id number]) [address] [facility] [place] [address] TSH 1.80 uIU/mL Normal 0.49-4.67 [facility] Comment on above: Performed By: #### P INR, 54261-0, 718-7, PLTCT, BMP, 65671-1 #### [facility] ([id number]) [address] [facility] [place] [address] TROPONIN Ion 10-13-2023 Troponin I.cardiac [Mass/Vol] 9.76 ng/mL Critically high 0.00-0.04 [facility] Comment on above: Result Comment: Concentrations greater than or equal to 0.05 ng/ml are considered elevated. Elevations of Troponin may be due to causes other than myocardial ischemia. Recommend serial Troponin testing be performed. Performed By: #### P INR, 56591-6, 718-7, PLTCT, BMP, 28299-3 #### [facility] ([id number]) [address], [address] [place] [address] Troponin I.cardiac [Mass/Vol] 13.09 ng/mL Critically high 0.00-0.04 [facility] Comment on above: Result Comment: Concentrations greater than or equal to 0.05 ng/ml are considered elevated. Elevations of Troponin may be due to causes other than myocardial ischemia. Recommend serial Troponin testing be performed. Performed By: #### P INR, 50913-6, 718-7, PLTCT, BMP, 84417-4 #### [facility] ([id number]) [address] [place] [address] Troponin I.cardiac [Mass/Vol] 13.88 ng/mL Critically high 0.00-0.04 [facility] Comment on above: Result Comment: Concentrations greater than or equal to 0.05 ng/ml are considered elevated. Elevations of Troponin may be due to causes other than myocardial ischemia. Recommend serial Troponin testing be performed. Performed By: #### P INR, 21952-8, 718-7, PLTCT, BMP, 60920-8 #### [facility] ([id number]) [address] [place] [address] Thyroid profile includes TSH FT4on 10-13-2023 Free T4 [Mass/Vol] 1.15 ng/dL 0.61 - 1. 60 ng/dL [facility] TSH Qn 1.80 m[IU]/L [facility] Troponin Ion 10-13-2023 Troponin I.cardiac [Mass/Vol] 9.76 ng/mL Critically high 0.00 - 0.04 ng/mL [facility] Comment on above: Concentrations greater than or equal to 0.05 ng/ml are considered elevated. Elevations of Troponin may be due to causes other than myocardial ischemia. Recommend serial Troponin testing be performed. Troponin I.cardiac [Mass/Vol] 13.09 ng/mL Critically high 0.00 - 0.04 ng/mL [facility] Comment on above: Concentrations greater than or equal to 0.05 ng/ml are considered elevated. Elevations of Troponin may be due to causes other than myocardial ischemia. Recommend serial Troponin testing be performed. Troponin I.cardiac [Mass/Vol] 13.88 ng/mL Critically high 0.00 - 0.04 ng/mL [facility] Comment on above: Concentrations greater than or equal to 0.05 ng/ml are considered elevated. Elevations of Troponin may be due to causes other than myocardial ischemia. Recommend serial Troponin testing be performed. Troponin I.cardiac [Mass/Vol ]on 10-13-2023 Interpretation and review of laboratory results Abnormal [facility] Interpretation and review of laboratory results Abnormal [facility] aPTT Coag (PPP) [Time]on aPTT Coag (Bld) [Time] 48 s High 26-37 [facility] Comment on above: Performed By: #### P INR, 13430-3, 718-7, PLTCT, BMP, 46856-8 #### [facility] ([id number]) [address] [place] [address] Glucose Glucometer (BldC) [M ass/Vol]on 10-12-2023 Glucose [Mass/Vol] 173 mg/dL High 65 - 99 mg/dL [facility] Interpretation and review of laboratory results Abnormal [facility] Carotid arteries - bilate ralon 10-06-2023 Previous: [...] previous report no significant changes were noted. [facility] Radiology Study observation (narrative) [facility] [place] Carotid arteries - bilate ralOrdered By: Sal Morris on 10-06-2023 [facility] Work Phone: Blood Urea Nitrogenon 2023 Urea nitrogen [Mass/Vol] 24 mg/dL Normal 02-04 [facility] Comment on above: Performed By: #### B UN, CREAT #### [address] Creatinineon 01-24-2024 Creatinine [Mass/Vol] 1.07 mg/dL Normal 0.60-1.20 [facility] Comment on above: Performed By: #### B UN, CREAT #### [facility] [address] Creatinine Clr Calc Pharmacy 43.30 Normal [facility] Comment on above: Result Comment: PERF ORMED BY: [place] [address] PATHOLOGIST [employer] TECHNICIAN LAURE BRANHAM M.D. Performed By: #### B UN, CREAT #### [facility] [address] GFR/1.73 sq M.predicted MDRD (S/P/Bld) [Vol rate/Area] 56.229 mL/min/{1.73_m2} Normal [facility] Comment on above: Performed By: #### B UN, CREAT #### [facility] [address] [place] [address] [place] BNPon 10-15-2022 Natriuretic peptide B (Bld) [Mass/Vol] 732.0 pg/mL Normal <=900.0 [facility] Comment on above: Performed By: #### C CONNER, ELEC, BNP, BUN, TSH #### [facility] [address] [address] [address] Feliz Hilton BUNon 10-15-2022 Urea nitrogen [Mass/Vol] 31.0 mg/dL Critically high 7.0-18.0 [facility] Comment on above: Performed By: #### C CONNER, ELEC, BNP, BUN, TSH #### [facility] [address] [address] [address] Feliz Hilton CBC AUTO DIFFon 10-15-2022 BASO # 0.0 103/ul Normal 0.0-0.1 [facility] Comment on above: Performed By: #### C BC ####[facility] [address] [place], [place] [address]PoDr. Feliz Hilton Basophils/100 WBC (Bld) 0.8 % Normal 0.2-2.0 [facility] Comment on above: Performed By: #### C BC ####[facility] [address] [address]Dr. Feliz Hilton EO # 0.1 103/ul Normal 0.0-0.7 [facility] Comment on above: Performed By: #### C BC ####[facility] [address] [address]Dr. Feliz Hilton Eosinophils/100 WBC (Bld) 2.3 % Normal 0.9-7.0 [facility] Comment on above: Performed By: #### C BC ####[facility] [address] [place], [place] [address]Dr. Feliz Hilton Erythrocyte distribution width (RBC) [Ratio] 19.8 % Critically high 11.0-15.0 [facility] Comment on above: Performed By: #### C BC ####[facility] [address] [place], [place] [address]Dr. Feliz Hilton Hematocrit (Bld) [Volume fraction] 36.1 % Normal 36.0-48.0 [facility] Comment on above: Performed By: #### C BC ####[facility] [address] [place], [place] [address]Dr. Feliz Hilton Hemoglobin (Bld) [Mass/Vol] 11.1 g/dL Critically low 12.0-16.0 [facility] Comment on above: Performed By: #### C BC ####[facility] [address] [place], [place] [address]Dr. Feliz Hilton IG # 0.01 10e3/ul Normal 0.00-0.03 [facility] Comment on above: Performed By: #### C BC ####[facility] [address] [place], [place] [address]Dr. Feliz Hilton IG % 0.2 % Normal 0.0-0.5 [facility] Comment on above: Performed By: #### C BC ####[facility] [address] [place], [place] [address]Dr. Mónicaaureliano Hilton LYMPH # 2.1 103/ul Normal 1.2-3.8 [facility] Comment on above: Performed By: #### C BC ####[facility] [address] [id number][address] Feliz Hilton Lymphocytes/100 WBC (Bld) 43.1 % Normal 20.5-60.0 [facility] Comment on above: Performed By: #### C BC ####[facility] [address] [id number]. Feliz Hilton MANUAL DIFF REQ NO Normal [facility] Comment on above: Performed By: #### C BC ####[facility] [address] [id number][address] Feliz Hilton MCH (RBC) [Entitic mass] 28.7 pg Normal 26.7-34.0 [facility] Comment on above: Performed By: #### C BC ####[facility] [address] [address]Dr. Feliz Hilton MCHC (RBC) [Mass/Vol] 30.7 g/dL Normal 29.9-35.2 [facility] Comment on above: Performed By: #### C BC ####[facility] [address] [id number]. Feliz Hilton MCV (RBC) [Entitic vol] 93.3 fL Normal 81.0-99.0 [facility] Comment on above: Performed By: #### C BC ####[facility] [address] [place], [place] [address]Dr. Feliz Hilton MONO # 0.4 103/ul Normal 0.3-0.8 [facility] Comment on above: Performed By: #### C BC ####[facility] [address] [id number]. Feliz Hilton Monocytes/100 WBC (Bld) 9.0 % Normal 1.7-12.0 [facility] Comment on above: Performed By: #### C BC ####[facility] [address] [place], [place] [address]Dr. Feliz Hilton NEUT # 2.1 103/ul Normal 1.4-6.5 [facility] Comment on above: Performed By: #### C BC ####[facility] [address] [id number]. Feliz Hilton Neutrophils/100 WBC (Bld) 44.6 % Normal 43.0-75.0 [facility] Comment on above: Performed By: #### C BC ####[facility] [address] [place] [id number]. Feliz Hilton Platelet mean volume (Bld) [Entitic vol] 9.5 fL Normal 9.5-13.5 [facility] Comment on above: Performed By: #### C BC ####[facility] [address] [place] [id number]. Feliz Hilton PLT 273 103/ul Normal 150-450 [facility] Comment on above: Performed By: #### C BC ####[facility] [address]uew[address]rh[address] [place] [id number]. Feliz Hilton RBC 3.87 106/ul Critically low 4.20-5.40 [facility] Comment on above: Performed By: #### C BC ####[facility] [address]qgut[address] [place] [id number]. Feliz Hilton WBC 4.8 103/ul Normal 4.0-11.0 [facility] Comment on above: Performed By: #### C BC ####[facility] [address]irk[address] [place] [id number]. Feliz Hilton CREATININEon 10-15-2022 Creatinine [Mass/Vol] 1.02 mg/dL Normal 0.55-1.02 [facility] Comment on above: Performed By: #### C CONNER, ELEC, BNP, BUN, TSH #### [facility] [address] [place] [address] [address] Feliz Hilton EGFR-AF UGANDAN >60 Normal >=60 [facility] Comment on above: Performed By: #### C CONNER, ELEC, BNP, BUN, TSH #### [facility] [address] [place] [address] [address] Feliz Hilton EGFR-NON AF UGANDAN 54 mL/min/1.73m2 Critically low >=60 [facility] Comment on above: Performed By: #### C CONNER, ELEC, BNP, BUN, TSH #### [facility] [address] [place] [address] Dr. Feliz Hilton ELECTROLYTESon 10-15-2022 Anion gap [Moles/Vol] 14.7 mmol/L Normal [facility] Comment on above: Performed By: #### C CONNER, ELEC, BNP, BUN, TSH #### [facility] [address] [place] [address] Dr. Feliz Hilton Chloride [Moles/Vol] 109 mmol/L Critically high 98-107 [facility] Comment on above: Performed By: #### C CONNER, ELEC, BNP, BUN, TSH #### [facility] [address] [place] [address] Dr. Feliz Hilton CO2 [Moles/Vol] 20.6 mmol/L Critically low 21.0-32.0 [facility] Comment on above: Performed By: #### C CONNER, ELEC, BNP, BUN, TSH #### [facility] [address] [place] [address] Dr. Feliz Hilton Potassium [Moles/Vol] 5.3 mmol/L Critically high 3.5-5.1 [facility] Comment on above: Performed By: #### C CONNER, ELEC, BNP, BUN, TSH #### [facility] [address] [place] [address] Dr. Feliz Hilton Sodium [Moles/Vol] 139 mmol/L Normal 136-145 [facility] Comment on above: Performed By: #### C CONNER, ELEC, BNP, BUN, TSH #### [facility] [address] [place] [address] Dr. Feliz Hilton TSHon 10-15-2022 TSH 3.265 uIU/mL Normal 0.358-3.740 [facility] Comment on above: Performed By: #### C CONNER, ELEC, BNP, BUN, TSH #### [facility] [address] [place] [address] Dr. Feliz Hilton BNPon 07-16-2022 Natriuretic peptide B (Bld) [Mass/Vol] 1093.0 pg/mL Critically high <=900.0 [facility] Comment on above: Performed By: #### T SH, LIPID, ELEC, LIVER, CREA, BUN, BNP ####[facility] [address] [place] [id number]. Feliz Hilton BUNon 07-16-2022 Urea nitrogen [Mass/Vol] 23.0 mg/dL Critically high 7.0-18.0 [facility] Comment on above: Performed By: #### T SH, LIPID, ELEC, LIVER, CREA, BUN, BNP ####[facility] [address] [place] [id number]. Feliz Hilton CBC AUTO DIFFon 07-16-2022 BASO # 0.1 103/ul Normal 0.0-0.1 [facility] Comment on above: Performed By: #### C BC #### [facility] [address] [place] [address] Dr. Feliz Hilton Basophils/100 WBC (Bld) 1.3 % Normal 0.2-2.0 [facility] Comment on above: Performed By: #### C BC #### [facility] [address] [place] [address] Dr. Feliz Hilton EO # 0.3 103/ul Normal 0.0-0.7 [facility] Comment on above: Performed By: #### C BC #### [facility] [address] [address] [address] Feliz Hilton Eosinophils/100 WBC (Bld) 7.2 % Critically high 0.9-7.0 [facility] Comment on above: Performed By: #### C BC #### [facility] [address] [place] [address] Dr. Feliz Hilton Erythrocyte distribution width (RBC) [Ratio] 23.4 % Critically high 11.0-15.0 [facility] Comment on above: Performed By: #### C BC #### [facility] [address] [place] [address] Dr. Feliz Hilton Hematocrit (Bld) [Volume fraction] 30.8 % Critically low 36.0-48.0 [facility] Comment on above: Performed By: #### C BC #### [facility] [address] [place] [address] Dr. Feliz Hilton Hemoglobin (Bld) [Mass/Vol] 9.1 g/dL Critically low 12.0-16.0 [facility] Comment on above: Performed By: #### C BC #### [facility] [address] [place] [address] Dr. Feliz Hilton IG # 0.01 10e3/ul Normal 0.00-0.03 [facility] Comment on above: Performed By: #### C BC #### [facility] [address] [place] [address] Dr. Feliz Hilton IG % 0.3 % Normal 0.0-0.5 [facility] Comment on above: Performed By: #### C BC #### [facility] [address] [place] [address] Dr. Feliz Hilton LYMPH # 1.5 103/ul Normal 1.2-3.8 [facility] Comment on above: Performed By: #### C BC #### [facility] [address] [place] [address] Dr. Feliz Hilton Lymphocytes/100 WBC (Bld) 37.3 % Normal 20.5-60.0 [facility] Comment on above: Performed By: #### C BC #### [facility] [address] [place] [address] Dr. Feliz Hilton MANUAL DIFF REQ NO Normal [facility] Comment on above: Performed By: #### C BC #### [facility] [address] [place] [address] Dr. Feliz Hilton MCH (RBC) [Entitic mass] 23.9 pg Critically low 26.7-34.0 [facility] Comment on above: Performed By: #### C BC #### [facility] [address] [place] [address] Dr. Feliz Hilton MCHC (RBC) [Mass/Vol] 29.5 g/dL Critically low 29.9-35.2 [facility] Comment on above: Performed By: #### C BC #### [facility] [address] [address] [address] Feliz Hilton MCV (RBC) [Entitic vol] 81.1 fL Normal 81.0-99.0 [facility] Comment on above: Performed By: #### C BC #### [facility] [address] [address] [address] Feliz Hilton MONO # 0.4 103/ul Normal 0.3-0.8 [facility] Comment on above: Performed By: #### C BC #### [facility] [address] [address] [address] Feliz Hilton Monocytes/100 WBC (Bld) 10.3 % Normal 1.7-12.0 [facility] Comment on above: Performed By: #### C BC #### [facility] [address] [address] [address] Feliz Hilton NEUT # 1.7 103/ul Normal 1.4-6.5 [facility] Comment on above: Performed By: #### C BC #### [facility] [address] [address] [address] Feliz Hilton Neutrophils/100 WBC (Bld) 43.6 % Normal 43.0-75.0 [facility] Comment on above: Performed By: #### C BC #### [facility] [address] [address] [address] Feliz Hilton Platelet mean volume (Bld) [Entitic vol] 9.0 fL Critically low 9.5-13.5 [facility] Comment on above: Performed By: #### C BC #### [facility] [address] [place] [address] [address] Feliz Hilton PLT 285 103/ul Normal 150-450 [facility] Comment on above: Performed By: #### C BC #### [facility] [address] [address] [address] Feliz Hilton RBC 3.80 106/ul Critically low 4.20-5.40 [facility] Comment on above: Performed By: #### C BC #### [facility] [address] [address] [address] Feliz Hilton WBC 3.9 103/ul Critically low 4.0-11.0 [facility] Comment on above: Performed By: #### C BC #### [facility] [address] [address] [address] Feliz Hilton CREATININEon 07-16-2022 Creatinine [Mass/Vol] 0.87 mg/dL Normal 0.55-1.02 [facility] Comment on above: Performed By: #### T SH, LIPID, ELEC, LIVER, CREA, BUN, BNP ####[facility] [address] [place] [address]DrJuan F Hilton EGFR-AF UGANDAN >60 Normal >=60 [facility] Comment on above: Performed By: #### T SH, LIPID, ELEC, LIVER, CREA, BUN, BNP ####[facility] [address] [place] [address]DrJuan F Hilton EGFR-NON AF UGANDAN >60 Normal >=60 [facility] Comment on above: Performed By: #### T SH, LIPID, ELEC, LIVER, CREA, BUN, BNP ####[facility] [address] [place] [address]Dr. Feliz Hilton D-DIMERon 07-16-2022 D-DIMER 0.89 mg/L FEU Critically high <=0.59 [facility] Comment on above: Performed By: #### D DIM #### [facility] [address] [address] [address] Feliz Hilton D-DIMER COMMENTS SEE BELOW Normal [facility] Comment on above: Result Comment: [...] hospitalization. Performed By: #### D DIM #### [facility] [address] [address] [address] Feliz Hilton ELECTROLYTESon 07-16-2022 Anion gap [Moles/Vol] 13.9 mmol/L Normal [facility] Comment on above: Performed By: #### T SH, LIPID, ELEC, LIVER, CREA, BUN, BNP ####[facility] [address] [place] [address]Dr. Feliz Hilton Chloride [Moles/Vol] 111 mmol/L Critically high 98-107 [facility] Comment on above: Performed By: #### T SH, LIPID, ELEC, LIVER, CREA, BUN, BNP ####[facility] [address] [place] [address]Dr. Feliz Hilton CO2 [Moles/Vol] 21.4 mmol/L Normal 21.0-32.0 [facility] Comment on above: Performed By: #### T SH, LIPID, ELEC, LIVER, CREA, BUN, BNP ####[facility] [address] [place] [address]Dr. Feliz Hilton Potassium [Moles/Vol] 4.3 mmol/L Normal 3.5-5.1 [facility] Comment on above: Performed By: #### T SH, LIPID, ELEC, LIVER, CREA, BUN, BNP ####[facility] [address] [place] [address]Dr. Feliz Hilton Sodium [Moles/Vol] 142 mmol/L Normal 136-145 [facility] Comment on above: Performed By: #### T SH, LIPID, ELEC, LIVER, CREA, BUN, BNP ####[facility] [address] [place] [address]Dr. Feliz Hilton GLYCOHEMOGLOBIN A1Con 2022 ADA RECOMMENDATION SEE BELOW Normal [facility] Comment on above: Result Comment: ADA RECOMMENDED LIMIT 4.0 - 6.0 ADA THERAPEUTIC TARGET < 7.0 ACTION SUGGESTED > 7.0 Performed By: #### A 1C ####[facility] [address] [place], [place] [id number]. Feliz Hilton Glucose [Mass/Vol] 120 mg/dL Normal [facility] Comment on above: Performed By: #### A 1C ####[facility] [address] [place] [address]. Feliz Hilton HbA1c (Bld) [Mass fraction] 5.8 % Normal 4.5-6.2 [facility] Comment on above: Performed By: #### A 1C ####[facility] [address] [place] [address]. Feliz Hilton LIPID PROFILEon 07-16-2022 CHOL-HDL RATIO NORM SEE BELOW Normal [facility] Comment on above: Result Comment: 3.3 - 4.4 LOW RISK 4.4 - 7.1 AVERAGE RISK 7.1 - 11.0 MODERATE RISK >11.0 HIGH RISK Performed By: #### T SH, LIPID, ELEC, LIVER, CREA, BUN, BNP #### [facility] [address] [place] [address] Dr. Feliz Hilton Cholesterol [Mass/Vol] 107 mg/dL Normal <=200 [facility] Comment on above: Performed By: #### T SH, LIPID, ELEC, LIVER, CREA, BUN, BNP #### [facility] [address] [place] [address] Dr. Feliz Hilton Cholesterol in HDL [Mass/Vol] 52 mg/dL Normal 40-60 [facility] Comment on above: Performed By: #### T SH, LIPID, ELEC, LIVER, CREA, BUN, BNP #### [facility] [address] [place] [address] Dr. Feliz Hilton Cholesterol in LDL [Mass/Vol] 30.2 mg/dL Normal [facility] Comment on above: Performed By: #### T SH, LIPID, ELEC, LIVER, CREA, BUN, BNP #### [facility] [address] [place] [address] Dr. Feliz Hilton Cholesterol.total/ Cholesterol in HDL [Mass ratio] 2.1 {ratio} Normal [facility] Comment on above: Performed By: #### T SH, LIPID, ELEC, LIVER, CREA, BUN, BNP #### [facility] [address] [address] [address] Feliz Hilton HDL NORMAL > or = 60 mg/dl - LO W CARDIOVASCULAR RISK <40 mg/dl - HIGH CARDIOVASCULAR RISK Normal [facility] Comment on above: Performed By: #### T SH, LIPID, ELEC, LIVER, CREA, BUN, BNP #### [facility] [address] [address] [address] Feliz Hilton LDL CALC NORMAL SEE BELOW Normal [facility] Comment on above: Result Comment: <100 mg/dl OPTIMAL 100 - 129 mg/dl NEAR OR ABOVE OPTIMAL 130 - 159 mg/dl BORDERLINE HIGH 160 - 189 mg/dl HIGH >190 mg/dl VERY HIGH Performed By: #### T SH, LIPID, ELEC, LIVER, CREA, BUN, BNP #### [facility] [address] [place] [address] Dr. Feliz Hilton Triglyceride [Mass/Vol] 124 mg/dL Normal <=150 [facility] Comment on above: Performed By: #### T SH, LIPID, ELEC, LIVER, CREA, BUN, BNP #### [facility] [address] [place] [address] Dr. Feliz Hilton VLDL CALC 24.8 mg/dL Normal [facility] Comment on above: Performed By: #### T SH, LIPID, ELEC, LIVER, CREA, BUN, BNP #### [facility] [address] [place] [address] Dr. Feliz Hilton LIVER PROFILEon 07-16-2022 Albumin [Mass/Vol] 2.6 g/dL Critically low 3.4-5.0 [facility] Comment on above: Performed By: #### T SH, LIPID, ELEC, LIVER, CREA, BUN, BNP #### [facility] [address] [place] [address] Dr. Feliz Hilton Albumin/Globulin [Mass ratio] 0.8 {ratio} Normal [facility] Comment on above: Performed By: #### T SH, LIPID, ELEC, LIVER, CREA, BUN, BNP #### [facility] [address] [place] [address] Dr. Feliz Hilton ALP [Catalytic activity/Vol] 63 U/L Normal 46-116 [facility] Comment on above: Performed By: #### T SH, LIPID, ELEC, LIVER, CREA, BUN, BNP #### [facility] [address] [place] [address] Dr. Feliz Hilton ALT [Catalytic activity/Vol] 18 U/L Normal 14-59 [facility] Comment on above: Performed By: #### T SH, LIPID, ELEC, LIVER, CREA, BUN, BNP #### [facility] [address] [place] [address] Dr. Feliz Hilton AST [Catalytic activity/Vol] 23 U/L Normal 15-37 [facility] Comment on above: Performed By: #### T SH, LIPID, ELEC, LIVER, CREA, BUN, BNP #### [facility] [address] [place] [address] Dr. Feliz Hilton BILI, CONJUGATED 0.1 mg/dL Normal 0.0-0.2 [facility] Comment on above: Performed By: #### T SH, LIPID, ELEC, LIVER, CREA, BUN, BNP #### [facility] [address] [place] [address] Dr. Feliz Hilton Bilirubin [Mass/Vol] 0.1 mg/dL Critically low 0.2-1.0 [facility] Comment on above: Performed By: #### T SH, LIPID, ELEC, LIVER, CREA, BUN, BNP #### [facility] [address] [place] [address] Dr. Feliz Hilton Globulin (S) [Mass/Vol] 3.1 g/dL Normal [facility] Comment on above: Performed By: #### T SH, LIPID, ELEC, LIVER, CREA, BUN, BNP #### [facility] [address] [place] [address] Dr. Feliz Hilton Protein [Mass/Vol] 5.7 g/dL Critically low 6.4-8.2 [facility] Comment on above: Performed By: #### T SH, LIPID, ELEC, LIVER, CREA, BUN, BNP #### [facility] [address] [address] [address] Feliz Hilton SED RATE WESTERGRENon 2022 SED RATE 14 mm/hr Normal <=30 [facility] Comment on above: Performed By: #### S EDR ####[facility] [address] [place] [id number]. Feliz Hilton TSHon 07-16-2022 TSH 5.167 uIU/mL Critically high 0.358-3.740 [facility] Comment on above: Performed By: #### T SH, LIPID, ELEC, LIVER, CREA, BUN, BNP ####[facility] [address] [place] [id number]. Feliz Hilton VITAMIN D 25 OHon 07-16-2022 VIT D 25-OH 22.4 ng/mL Normal [facility] Comment on above: Performed By: #### V ITAD ####[facility] [address] [place] [id number]. Feliz Hilton VIT D RANGES SEE BELOW Normal [facility] Comment on above: Result Comment: <20 ng/mL Vit D deficient 20 - <30 ng/mL Vit D insufficient 30 - 100 ng/mL Vit D sufficient >100 ng/mL Potential Toxicity Performed By: #### V ITAD ####[facility] [address] [place] [id number]. Feliz Hilton MG MAMM SCREEN 3D RELL CADon 06-14-2022 MG MAMM SCREEN 3D RELL CAD Patient: ASHVIN RENE Exam Date: 06/14/2022 : 1955 Gender:F Ordering : DR TUSHAR SOLANO D.O. Admission #: [id number] Family : Order #: [id number] CLICK HERE TO VIEW EXAM RADIOLOGY REPORT [...] Treatments None Family Cancers None LOCATION: [facility] BREAST COMPOSITION: Scattered areas fibroglandular density. [...] MD on 06/14/2022 at 14:19 Normal [facility] XR hand RT min 3V*on 022 XR hand RT min 3V* [facility] [employer] Other XR hand RT min 3V* [facility] [place] [employer] Other XR hand RT min 3V* [address] [place] [address] [employer] Other XR hand RT min 3V* [place] [address] [employer] Other XR hand RT min 3V* XRay Report [employer] Other XR hand RT min 3V* Signed [employer] Other XR hand RT min 3V* Patient: Annette Rene MR#: [id number] [employer] Other XR hand RT min 3V* 20 [employer] Other XR hand RT min 3V* : 1955 Acct:[id number] [employer] Other XR hand RT min 3V* Age/Sex: 66 / F ADM Date: 05/20/22 [employer] Other XR hand RT min 3V* [facility]: pe: [facility] CLI [employer] Other XR hand RT min 3V* Attending Dr: Virginia Marti COOPERATIVE EDUCATION DIRECTOR-C [employer] Other XR hand RT min 3V* Copies to: Virginia Marti NP-C [employer] Other XR hand RT min 3V* Ordering Provider: ZAC Perez [employer] Other XR hand RT min 3V* Date of Service: 05/20/22 [employer] Other XR hand RT min 3V* 25351) XR/XR hand RT min 3V*: M79.641 [employer] Other XR hand RT min 3V* [address] ain film [employer] Other XR hand RT min 3V* COMPARISON:None N [employer] Other XR hand RT min 3V* HISTORY:Right hand injury. [employer] Other XR hand RT min 3V* No fracture, disloca tion or focal soft tissue abnormality seen. Degenerative changes and [employer] Other XR hand RT min 3V* atherosclerosis. [employer] Other XR hand RT min 3V* X R/XR hand RT min 3V* [employer] Other XR hand RT min 3V* IMPRESSION:No acute findings [employer] Other XR hand RT min 3V* Impression dictated by: Rodrick Galvin M.D.05/20/2022 11:13 AM [employer] Other XR hand RT min 3V* Dictation Location: [place] [address] [employer] Other XR hand RT min 3V* Transcribed By: HERNAN 05/20/22 1113 [employer] Other XR hand RT min 3V* Dictated By: Amadou Galvin DO 05/20/22 1111 [facility] [employer] Other XR hand RT min 3V* Signed By: [facility] [employer] Other XR hand RT min 3V* 05/20/22 1113 [facility] [employer] Other Coding Summaryon 08-21-2021 Coding Summary HTMLBase 64 RkvidoguWFa6yNd+PGhlYWQ+PE 7ICSDkL83gzLTziY4ZB4iOMP1H YXWFKVNRTP4EUB7ygRI8NHirW5 VybiAv BdjitBHjOT92ZZs0HGX7bGvbYP zkrW8kcPShN7q7CcTjYK71zY39 PYiuYRIuFuQ3JfBxaurjpDFw D5vuGoKjnJZaCud+PHRhYmxlIH iaPBJwFTebHTUwMeBclHabIS9u Tl2uTZOcIUPtpMcpoVCcCwXq t7lpRQGzRKoeKZ3dbVtaZ0ChpH P9GILht8a5Cl11iVN+PHRkIHN0 rBqoRJlqt272PoUyt4ceNEW6 vOLbAJujLAG7I70rc6V4RTOcVS AaPSJ7yJI7aE6piIgupezmD4Ni vAUqItK7JQO1nEPhtG5wdYtq ijgzcC4wVzx+F63ALP6NAYYTPM 9NFmc6F0PlXvvwlXD+GJ64TFXr CA62xEJtlEVlb9wsvNb5XgRc SUZyNGN2dSadRNffh5PmWQOdJ5 0zgMXyy9O5SBQxsOkngXOmPsKh dNO3xV7xBPgyawhoz5ghovpx Smcps0dkfn46dN30Q92dGUjrZE JmNQG1PKMvGWBhrVqigj4vmS9y Ii8+MPhew0qho4dtwKx0WvNm ZNEzigLcsUpyJRO7f9HkSi52O0 KttFgdn1RtQgu2fg31rFNzm0K0 zDY4OKetTJBnzC5xIAowUqJ6 SXSoFhThwL45wIXbBKerQv8fnU kxqTxvTB9vKJRaduqtEMGzpF7c SIJxnTQjbEceSV5iFOEfkfry l838LsPoQZF5MPNmrSXvZ8EdrM 4jMrIdGCVtZBIpK4PxeRVuMMpv X474KNagEdN0TXXfiyOrA3Rq ACNsiRjoDxX7z6W9Dc5Be7Lngv dcGQY2DRkgLOYvPcL6CpCaIsU4 D6VyTxu9UUZcuPgxUL9fA1Vl RZBqiypjbgvhwSF1JUGvHQOlwE 30yWOoAEqtMy6sq9E1t696WVDe MMEzmD07Wl0ayUezCSAkgDJY pF2mjwqbv5imbvziSsTwPCWjTT c9HBe6UJAinDobUqPlEGU8UzI9 KFZ3cATneM5zkXbjoiyfiK6m Oyc+V97afU1fQGV7LOP5gsieTC GldnGhCL59QH62E4PwRmafpFXc bGU+GCQkikNcxLypZJ2yTjRi i2xap1IcRDupU8LhUOHgTLhkAt u1GDBtBNH6sQA5gZ6rWQFjJWjv n8M7gZW4D0FduoPqkm4rd1re RIQcOIbsM58bdJRet1C3SIVfjY A2FNImiMtvBwPwuM69Gsq+PGNv jKzet2GkMxfkl9bzx4rmoDl3 ErOoWSDanyMejMgyUTF0m3MvTz 07M10dVTaiZZKhQBBxCKNgZDMr tDbrgo9niW5eWb4+PGNvbCB3 tGG7rO2mMGUzQzN0MFrhE365Ev ZioFOmXgebs6xmq6kxpZz9ZzKi LJOwpqEceBgmEKY2s3FvCb09 S53iTKdkKNHeKOJpMSHrEVEaxL ckym6qsH9jKh1+RS1lw1kyxl06 uM45rRS+NCBpAJP5eUqjWAiv HXDhjM9aBOboXfX8HHTaVtRmrL 05wMQdWFpaWg4dgFiylMrrMA5a PBBqoqpie208HiLvs6zpJCYt dFOqAOacMNF2X72dt5D4XDLiZD MsORV1vDT4gA8mjQizsopvvJUq xAhlhvRrtOpeDZtjCDalY402 IHRvcDsnPlBhdGllbnQgTmFtZT v1H9NqKkf7KLKsoXeuCT7owMTv ULtrSo4raZsnjMapDJ6jPGMp ukepm571QvIjl6qwZMEscPFnZI pdESV6E67ns2R5NHLbSFUlUBX2 qBT0bK7ciHytilrdtFZjuBbj qrBpoCkoUDxeKEanD079VUAunG ugXtPowxGvIFPksZR7KM02PX67 pQQyp1O3zRC8B9UhSJMoqxbs hqbypNQ6XTZxMYXgmR35Eo9veK zqUf6zZPIuLPW3DZOrnSLwD6Pd sZ1gKxDfCRGcLTEcS4YriCEu RAzeC598VXjgOfT7XSScjrKmP9 WjPZWgjIdqJuD4o2R6Ft3EP8X2 OP81QE26uHLrt4S3jJC1Q3Sl MGZpbpaamqluuAA4RUDiSDBlkB 62Eb0bwPelIg3hXKZfRQI3YWIy yBWzE5DrlB9gAyDhHBQoCKWo D3NvzQWqUAzvA369WHotKnX9AF QhfyPcJ9YgBAXrgKglOnN8b9D9 Yv8YFVw8PT70CZ05hFRoe4M7 kSC0X6XmIDPzhoeesyldiMR6BX PuRGZazJ50Pm1feExsLj9jWJSg PPK5ESWdjLDnH3McjM0uBaSf KWGvDFVaJ1VliSRqNVkdP136PM feXsB3RXWoaaTpI2SjJPUvyLow QhA8e1N6Ut9TNVZmSK34PMQ6 lAR1QW75DY99F4VdMlhhgSRuaQ U+PHRhYmxlIHdpZHRoPScxMDAl DlCwrVklME4eNx7uYODsBRKx sVwxaXUhUaJlo1aiGZSvTLhaAN 3zmVcqS5OqfQB8KJNjd8t0Sm13 S65yK3ZywYR+VPXnuWA7pZV8 eR0vMyFtDuZ8OMjlO225VrRrzH QlMggkl6gpv5roeCb6GfD4RIHx qvWppGlqULO3h6JzLi36U25e IHdpZHRoPSIxNSUiIHZhbGlnbj 7xvU8xBo5+GSTmqGL0tQK9eO4r EkJcPpE6FSrpT956SvPmeBHv Adrpk2spd6teiHl9FzSgQPSqpd RpqPjkXIP2r2OhBc60K2RssZsz y4MmYnf3mj45sLNxh6X3qWB9 R7HhOAUpkcvvjYTysZuxQJ6uLU HlbxcaLLYaeW5vMAEfF8n0VyQs GeR6LDgsT5KhmdP1ICSugRXb WIjuWSH2H49ui2G7TZJvDKUjDD N4rZE3kK5bvOzpfsfffWZmhUev igEjqOyfYYlwTYkiB219NJGe wCtvFHMeqA3gGUTsgJGqgRasGD 8aNPRflwnwGfgKNo6BQnsjN0YW KJ0zZRzufXH+PMCiYMR3oSsi FTrwGCMteS3oMXAsK5v4NbTnBu S3NZvfV9StZQWcxtxvPb46oD3y LlZkGbO6DMzgV7PbdxV5SBTf kXMhDFqeFDU1C05mn9Q9ZFAxAS SoOPA7dZS9oR8kaDbcfduerRNt cVmagbIvgWslOJxtNWebT788 RAWvtNarJkO3OiR9JfL8ZRR1R5 EpTay9XEJtfGfpBL3wgMMeWPwu Ae8euLqmoCfjBO6zEGUxnvjo MQCijY0gFUEedLUbsOweGH6iYE Yzfysto876EwJgKKF0RPUriMRs G9XlzO0xZcMlFCJmSGGnY4En uTDaQLpgO071TVbbFtI3QMGxbz KxV2OzQVRsiCvcZoR3c2U5Eq31 NyBZZWFyczwvdGQ+PHRkIHN0 rFtgQNhaZYZxrH3zWEXiS2i0Zo NcYmB9JLzvL9KmAXAxxuhrYu04 gJ1cOcMdXoB9ZPklV3EuvwY4 XZZdnEDbIHduQYA6E40pv5B8HB KzZOIzESF1lOU6xQ9kgQhinwmp bGVmdDsgdmVydGljYWwtYWxp C629OAAsyGhgUpZPYABDSIctfO Q+QABiTOI7tHtfWIuqWNVgoM8l GBEaB8p5KbFePxK7QRciD4Zy ZVSnjspnNx54qH5tCdSeQjQ0TD wwM9FhshT2TFXnzXNzEIocHVU8 H06oq4H6UJZmEIEgSYW6aRM0 pT2bwFtlkosmdHVwvGblhaGweG xfYQzwOHizI913FKKvrIlrPg8s c1OpybX6zZ6sGY26FJ15V1Nw PjwvdGFibGU+PHRhYmxlIHdpZH IuOLcwRYNxHmMayHxkIN8bXq1w IGBiEAOecAitdNChLtGkc5nf OZUiWBtxKN8smDooQ2DzgGC3UM Zpy2s3Su15A76oR7UzfCZ+PGNv yEP7yOF8rO1kPwWlHhZ8OCyj M337HfPxtXWpLowdq8hqy2uasI k3IqHeMWTfapYubZtsMPM7h9Jn Pf17M30zOJbvPZZtCGToLJTx ZETrpXfjlg5drO5aHy7+PGNvbC A6mRR1xM9cEvSxKpZ4LTvoM317 VaLjvBMmJtckB45fL6SozAG+ IAYzGmn6JAPleMxsZM1vsNGmIR dvIn0qKIV7KgCtCyPrNXzrC9Zj DQWlevipotrksUP8WHSoNQFr hG07Wj7unYorVr0tBEArGXQ9BN PwsKPuN3EerH4sHsDzFKAaHCSl I5YhgLIcOGzcB531KCqdWiR1 QPAkfuQuB5GkGEKtaFktVqM2z9 W9Wx0VeEbmzTVlIF7bFqVySLj5 B4KtMcf3OONfrRuwSY9eqXSr EPcxOc6nuWkzdUygRY4yROKsah wae855ZfPvc0izXQRpqUDoVWxx OJF5L35su0Z7HLDaTTWtKZF4 zZL1pS6bbFsfrmyvdDCbcMjnvh LscTgyWSklUAovB898AVGlbIgj PqUYVqf8A0ToRdk1NJWxvBqx VT0fbILsTPthVm8yjHegqPhqZG 3rRVGjvlbnq800PfCgj3inKHZf gMDvUMceGWK5C67ux9E1WKYu ZVIjFRL4oMA4gZ1ckZyxzvtjsU MofLspahPvjDkfHSokUWtlC068 WVIkzOdqHf7LZak3L0XwAss2 ELEwwEeqCI0hdNExWMnaJv7enV oszKwbNK7yFQNviatqn122RhEp j5koDIVglMTgDJhgZPD7C85y q7G7DZXdKYBrZOC9iYP5jM3mgS lnbjogbGVmdDsgdmVydGljYWwt CUshF998CDHeoWtwUqHbqEDv OjwvdGQ+CH71iz71Q9YzYawkSs j1JMSpSUB3gSC2pX4zXTEvWRry m7W2eJF7D4QzyzCgwo1qw7ns YXB (more content not included)... [facility] Coding Summaryon 08-20-2021 Coding Summary HTMLBase 64 NuwstnqrUEw8aUo+PGhlYWQ+PE 5RTTBnN03quAEmnT7GS8zENB6T TGPQGZNVLP8CFU7noCM5IGmsP8 VybiAv SwpnnIHcTW65NRz9QUH2nBgaLL kkvC3edBUpN9e1QnAiDJ57tJ06 AFcgGFOzOzY9UwFdttpbhYFr V3qoPcRxuWCsQke+PHRhYmxlIH xtBHNbBUvdQNFiUsUoiLgxJM3i Jr6iJMHeGQUfvNdzsSRoWlCg v1heEXDnVRoaTN7gyEzkL4WfvS W9SJQxw5w2Gq60cGS+PHRkIHN0 mYsyCNlxo499LpZwk7asHHI6 yEDvSEvlOZA2I96uy6U1GULyVM KtRKT9sDH2rN0iyEemccavW3Ei aLUkMcI7QUW6dLKlwK0boPeo zyqzpZ2eOyu+B94JED0AYYYNLR 9UGup7G9BpHmdszOW+JL02LZDf QK65iVQiwVWvn3airYt0ZwJu CYEvPPN6cKmpUPrhb4KaEQYsR3 7acNQez8W2LAPykFnyvDTlUmCz yKB1rO7eMIsqozpmd5sajyrf Xsxdp7ezpo38hB11B17dUElwHH XsXVE5VBLgCGOshNphdj8spB7g Ii8+SDswe7ffv1fsuQx8JvMh LBRsekRpfEyjQOW1l3IgPe55P8 PlmWzhv0ZnRyl0rw15vHPkc6W4 xTX9UYszWPGbkJ7hVPlnBqY9 MYNnKiIecP39uWSsKKinEt6xhE qdoUzhHZ3cQWQexkhmEDXmoQ1v UDAolJQwkTysUL1rAFOrmzqw p223KfScULM2UGRjyUWmE1KxbQ 0xQyOoVAHlMHPxZ4OmfVJlSDso Q540MKkuApC9DNKpbpJnX6Xb GSEyyOwcBkW5a6L3Qu0Xa5Qxlz cgLJK7WBemMMMtXhX4WdHqKrA8 A6UdYxs0TJJuwEzzJG3xF3Ct RBIqbrqtinkprRV6FQNmAMJgiB 21bIGnNTftVh9zz9L3z318LXNz ASLuaL43Gx2srAbjEAOjvSIM pN4jqhrrr9mpjuvtDbBmPUTiMP c3CIq5PSPcuHcgZyBmVQC7OmP5 BNA8sKRurZ5upZhpixczmX5e Oyc+Q82ppY9rELQ1XQZ0whzjAF NsgkWtAZ90EL34Q5JdWvfcuQMc bGU+HZZybaWzyUsuKQ3gXkYe n8hhf4TuPFvvG1HdXQTeFNrdTz m5RULqKXL5sZY3iP8cRXXhCMkz c1B7sOO3C0WrkhQbwr3sa5qc TAJrQHiqI75qlSXho0R4MQBtgV L2PBEtdPqhOeOieZ46Gsp+PGNv wXfkt1DgHtnqo0jrj8imaXa8 QqSoEMQhokJgtXilNUT2n6QiEm 50F43vLBgkVOPfQHMiWWPcSZHl jDtgqc3deZ1qZw2+PGNvbCB3 dLP5bU0iISCeBiB3MTwgI884Ur VebWKlCghdz6qfb8pgjUf7XxIz EKPmzsOqjIpxZSB7i2WfOn42 N93sFVzkTDSaOCXuGCIfHRBsqM rtrg3kuM9dGh3+RY4hv6jotm16 eU98sIN+NOJuVQS3vZabACcu FZUhyP3rSXwcEfP5CEHbKlEkuP 30mPEnAIliIo0ycGklbHzrPZ5w IDRfpiejg352TtSog7maYIDy fFAtYXxiPTD2V01no1I4MYQwXP DgGSZ7hOA8cS1snAprytossWVf kJvegzPdrChhQIzmKMlaB880 IHRvcDsnPlBhdGllbnQgTmFtZT k9U3OrCxl5TYIcgPtlUD8cgZHm WYjhCi9ijJmjjRzbUX9oCTCe gktkl552QfAxu0axTSDziACfLX yxTTG7C72kh2V3FGIoWVLvQIX4 bYD0kC4vnMntwnjshCYnuOgc beHfcTwoDKnrSOhvC387SEOesD cqSoAcnlFsCRPnmTL7WZ83XK14 bAOeu9L5tHN0L2IjXFQpjelv juoknGQ7STQiTQMkiJ16Rs9mhO thFs2cOMLiMKB1IRIvkLEgS9Fq qU0gJmHeUATwMCMfQ1PukXKz XDynX213KPmnWzD5ISAhbvZbI9 UmBTZjvZjoUhR8l7L9Ge9TF3N7 CV70TG81gYKtk5L1mEM1E8Ix TQEaosfojkswvCR3NFZmVKMxiW 30Ok9afEprRj8yCZEsQJF5UUKb xRMkC7XhnX1jMlGpVKCaVQAo Y7AemBQqUNqgE175WNjhIbQ7TC AvieYsD3JlORQlmZyjEeC5l7Y9 Wf4FCTv0VS10LT04xDHqy4N1 bAJ8M8XmQSEsmxvukxnykCI6CO JpMZZvmZ31Kk4xmYxbXh9zLESg KEO3BWSxxNYvV4HetI8sUtLj SLApKNWfY1WnqTWqDSucH842RD eyTkP7TZAwmjQqZ4UnUXPcqUdg AaC5r4G5Fd4RBMYuRJ99KHN8 tAP1MN15KN08U4ViWburiVNstC U+PHRhYmxlIHdpZHRoPScxMDAl CcIryEupPV0oXo9mWEEaWKWj zRhwaXLeNcUtp4ksXLXzEKmpML 3tsDwkT4PnfAS1CSZtl0k0Bq86 X99lW2KgmHN+UZPrwHX5vCK5 bV0nAtJaVhZ6RQrtC262KbQybH IbZoayq2nue1ckyQd2GsO3WBUh klEvyWnzHDA3s8AiPu13F01z IHdpZHRoPSIxNSUiIHZhbGlnbj 5qaB1jPi1+GUPfbMS6dMU5wB2y HgHhMdD6WDpoJ947PbFdoLPo Sjivp1xzg3gzcBm4GjUxGANegx WduXlkGIB5s2CtDc80D8UrwPmd n0GgOoy5fh29iUSjg5H2xSD1 Z0GsBOEghxkwxHIxnCvpHQ4qUU KwgbadEXUkfE5vUWFkT6f7VdVo ZuR7DVviP9LjafJ0DZQwwBOb UBleVXC4C32rd8D7OSNzCWTgUI F6aCG1qS0elOavlqjccCPllJgf ruFlaLjmRQiyYBvuY173KJAx qPbhOVAlaM0tKILozLLqnWopAI 8lCICbdkdtEaaRVm9XWsckU2VX WJ1vAJlblOY+UXWdHDO7aYkm DOrpNEMovI9wFZUaW6i1RfNyIv R9AYgsT7UmVSAbazurFy11yB4u DzYzSkI1QLcvF3DvmhH1VBPd sJVbJFzlHOV1W45ud3H2QPMmDS SnZNL6gBV8dO6gaPrzgdbewPGz rKznwiHhdReyZPhyVVzmZ620 QIMmtHvvHqQ0BjZ7NnI3MKZ7K8 NmLmq1DIZptHnxRV8ztJRbPRpy Br8yeBepyBqdOI8tVNFegewf KQKqyB1fAWDynZDtkIiiPT1fLP Pmfireb018BkNrAUU6WXRuoTGr X2HecN4gWxQyKRNxITNyE3Mw eDGaNSnqV642AVduNsG4MNJsdt XsF7NpFHVhdXbdEaS8h1Z3Mx11 NyBZZWFyczwvdGQ+PHRkIHN0 oCzwSRnbYFVpvS3eNJAhS2r6Lr NpQvA0MHlyV1WlTXJynltqXo88 pJ3jPqFmItM2GGjpG7RwefM0 SXGssQFcWGkpEWJ2W74hn1F6QF VfYBVbCVV8kEB5gA5gbFaknhil bGVmdDsgdmVydGljYWwtYWxp Y423AYDotXgkHfVVWPTWKXvkdM Q+CYXfOVE3nEzbFVpnWRRvvY6i BECoD3l4ThUyZsB4BJgmI5Hx IVOseklsDv19xR8zDuIsBuH5DI roX8NshbD4SXOukQKxPUenSJZ2 I81ss1N1NJPcDDHbMSP6hJO5 vJ7loPlgvcduqZQlbVpjuuUbhP okARcmPLtiF758YKXygOsvWyyc oHX5hGMhnXkerAD+WA03wh69 W4IoWmzoCvv1ZEKlHAT9gWX6sE 4zIDOtIDyju8T8jVJ2V7MjhcYw bo8eb4hbKMNfCOfyU71egVOf x0G7EAHpxBC4MVVujOysTaFjxM 93Oyc+DFDjkCjfw1RtEppsa8df p4ydrCf5SmPcZUVtopJgpBlo IFL1s9DlNo14P91pVMelGHKpTX BlMWUoZNXvqBkdxo5uiQ5xLa7+ PKGrrTJ9nPU8wS3mPkDqMwK3 JXnwS935CpNjbXYvYscyl5fnh8 fkyRu4OcSyEAYwgmWdwTsoBET0 n8LwFo45Z2DmsPqdk3PtKsc2 nk65cMYey6J7pGZ0C1NuKNJuai llkPQffVhiHA3pZMHciihoAHJe gI4bUFFtX0s9YaKaRzD8SNtu R7PaiuO0DQFziZYdQMBptDMVnT 9ehjhuo9iicljpScDoFFJtMSg5 ZQb5PGFdpFywCaScBUX1PnL2 OYH7uDSuvE0khStssnwjlU8xLf c+GZh3b0ysvUZqWB8ynSG5RA34 UX36lBRsv7A2kHY9Z4EtBYHi xivyofxfgCD4TUUaDKFbiX07Op 7itStkIs0lSKBzUGO9VGAhkBQp V0SfvC1tXvXqIISrLGUwG5Wg sQCgNSopB435GGjcEfU3JDKsqw IkW5UyLULvaZjaLfN3a5C3Ih6I ZX77ZJ95XH08kUPxh6A3uUD3 F2IwNCJgaqgcfpurwJF4YHRmKA IxdZ79Er0kpPglXt7pFYTgISR6 SZPttMXcJ1OqqF9qWrQyIDWg GFClI9DmgBOxCTvsP286NEatNt P2NHTqkxPjZ1OxAPUfdUzmUfN2 e4Z4Ad8RXa47AF42AM21mSXe l2U7oRD5O2ByIRMcpmzmnegdlC L6XHDlTIYmtE50Hl5gjPzdTy3p FTGaANY1GYAkwPIeT6DwvD4k WjIiJBYbUPIbO0PqwYFjLDjrB6 84EFncYiT6FJYpykZyL4TyFPAk tUoiBuM9r5O8Mo4SKFwywkh8 V0KlGikfkZJ+IC46MOPtNJ42xT PsaEOni2uvwHk2StFnYVFwDVL7 hSleDFtjs4NlEKJsP00bwHCb c2U (more content not included)... [facility] Outside Recordson 08-17-2021 Outside Records [id number]-15-2021 Consent Forms [id number][facility] Path[facility] Sendout Teston Pathology Send Out. See Report [facility] Comment on above: Order Comment: PROCE DURE COLONOSCOPYSPECIMEN CECAL POLYP Performed By: #### 1 [id number], [id number], [id number], [id number] #### [facility] (DEFAULT) [address] [place] [address] Provider Orderson 08-15-2021 Provider Orders [id number][facility] Tele[facility] Stripson Telemetry Strips [id number]#1.00OTGTIFF Normal [facility] Transfer Noteon 08-15-2021 Transfer Note [id number]#1.00OTGTIFF Normal [facility] .Auto Diff 1on 08-14-2021 Auto [place] % 7 % Normal 1-12 [facility] Comment on above: Performed By: #### 1 [id number], [id number], [id number], [id number] #### [facility] (DEFAULT) [address] [place] [address] Baso Abs# 0.0 x10 Normal 0.0-0.2 [facility] Comment on above: Performed By: #### 1 [id number], 5393956, 96655763, 7238159 #### [facility] (DEFAULT) [address] [place] [address] Basophils/100 WBC (Bld) 1.0 % Normal 0.2-2.0 [facility] Comment on above: Performed By: #### 1 [id number], 4289516, 04728930, 1557583 #### [facility] (DEFAULT) [address] [place] [address] Eos Abs# 0.1 x10 Normal 0.0-0.4 [facility] Comment on above: Performed By: #### 1 [id number], 8638046, 71451683, 8434852 #### [facility] (DEFAULT) [address] [place] [address] Eosinophils/100 WBC (Bld) 2.9 % Normal 0.9-4.0 [facility] Comment on above: Performed By: #### 1 [id number], 1258470, 18715710, 2303016 #### [facility] (DEFAULT) [address] [place] [address] Lymph Abs# 1.5 x10 Normal 1.3-2.9 [facility] Comment on above: Performed By: #### 1 [id number], 4398455, 32353472, 8326123 #### [facility] (DEFAULT) [address] [place] [address] Lymphocytes/100 WBC (Bld) 31 % Normal 14-48 [facility] Comment on above: Performed By: #### 1 [id number], 1087542, 33745922, 1179103 #### [facility] (DEFAULT) [address] [place] [address] [place] Abs# 0.4 x10 Normal 0.0-0.8 [facility] Comment on above: Performed By: #### 1 [id number], 4887096, 44935230, 6892429 #### [facility] (DEFAULT) [address] [place] [address] Neut Abs# 2.8 x10 Normal 1.5-9.2 [facility] Comment on above: Performed By: #### 1 [id number], 3082626, 57256303, 7857055 #### [facility] (DEFAULT) [address] [place] [address] 96926 Neutrophils/100 WBC (Bld) 58 % Normal 44-88 [facility] Comment on above: Performed By: #### 1 [id number], 8889423, 48138302, 9660621 #### [facility] (DEFAULT) [address] [place] [address] C. diff DNAon 08-14-2021 C. diff DNA Negative Normal Negative [facility] Comment on above: Performed By: #### 4 [id number] ####[facility] (DEFAULT)[address] [place] [address] Internal QC OK? Pass Normal [facility] Comment on above: Performed By: #### 4 [id number] ####[facility] (DEFAULT)[address] [place] [address] CBC w/ Auto Diffon Erythrocyte distribution width (RBC) [Ratio] 17.9 % High 11.5-15.0 [facility] Comment on above: Performed By: #### 1 [id number], 0884714, 67167120, 7505852 #### [facility] (DEFAULT) [address] [place] [address] Hematocrit (Bld) [Volume fraction] 27.8 % Low 33.7-40.4 [facility] Comment on above: Performed By: #### 1 [id number], 6168629, 44732868, 9560549 #### [facility] (DEFAULT) [address] [place] [address] 02367 Hemoglobin (Bld) [Mass/Vol] 8.1 g/dL Low 11.3-15.9 [facility] Comment on above: Performed By: #### 1 [id number], 0872758, 13654922, 8049211 #### [facility] (DEFAULT) [address] [place] [address] 68874 Instr WBC 4.9 x10 Invalid Interpretation Code [facility] Comment on above: Performed By: #### 1 [id number], 4422281, 10891263, 8194964 #### [facility] (DEFAULT) [address] [place] [address]40 Man Diff? Auto Normal [facility] Comment on above: Performed By: #### 1 [id number], 8222653, 51741651, 7509844 #### [facility] (DEFAULT) [address] [place] [address] 52013 MCH (RBC) [Entitic mass] 27 pg Normal 24-34 [facility] Comment on above: Performed By: #### 1 [id number], 9794523, 37993496, 3757243 #### [facility] (DEFAULT) [address] [place] [address] 76504 MCHC (RBC) [Mass/Vol] 29 g/dL Normal 26-37 [facility] Comment on above: Performed By: #### 1 [id number], 3581312, 57392753, 5840780 #### [facility] (DEFAULT) [address] [place] [address] 99391 MCV (RBC) [Entitic vol] 94 fL Normal 81-100 [facility] Comment on above: Performed By: #### 1 [id number], 6076092, 73958173, 6897269 #### [facility] (DEFAULT) [address] [place] [address] 78114 Platelet 280 x10 Normal 138-427 [facility] Comment on above: Performed By: #### 1 [id number], 4700481, 34601069, 4963986 #### [facility] (DEFAULT) [address] [place] [address] Platelet mean volume (Bld) [Entitic vol] 9.3 fL Normal 6.3-10.2 [facility] Comment on above: Performed By: #### 1 [id number], 7890853, 89757925, 0520502 #### [facility] (DEFAULT) [address] [place] [address] RBC 2.96 x10 Low 3.70-5.30 [facility] Comment on above: Performed By: #### 1 [id number], 9945121, 14982139, 4087323 #### [facility] (DEFAULT) [address] [place] [address] WBC 4.9 x10 Normal 3.5-10.5 [facility] Comment on above: Performed By: #### 1 [id number], 8751078, 80382122, 5493978 #### [facility] (DEFAULT) [address] [place] [address] Standardon 08-14-2021 eGFR Non AA >60 Invalid Interpretation Code [facility] Comment on above: Performed By: #### 1 [id number], 6023460, 31332354, 3381751 #### [facility] (DEFAULT) [address] [place] [address] eGFR AA >60 Invalid Interpretation Code [facility] Comment on above: Result Comment: [employer] juanito Kidney disease could be indicated at eGFRs of less than 60 ml/min/1.73m2. Kidney Failure is indicated at less than 15 ml/min/1.73m2 Performed By: #### 1 [id number], 3285388, 48556816, 1340607 #### [facility] (DEFAULT) [address] [place] [address] Albumin [Mass/Vol] 3.0 g/dL Low 3.5-5.0 [facility] Comment on above: Performed By: #### 1 [id number], 7592081, 78017651, 4783068 #### [facility] (DEFAULT) [address] [place] [address] 32496 Albumin/Globulin [Mass ratio] 1.8 {ratio} Normal 1.4-2.6 [facility] Comment on above: Performed By: #### 1 [id number], 6235718, 40210828, 6587598 #### [facility] (DEFAULT) [address] [place] [address] 50582 Alk Phos 35 IU/L Normal 32-91 [facility] Comment on above: Performed By: #### 1 [id number], 6182363, 71481055, 7362292 #### [facility] (DEFAULT) [address] [place] [address] 82443 ALT [Catalytic activity/Vol] 16.0 U/L Normal 14.0-54.0 [facility] Comment on above: Performed By: #### 1 [id number], 7597436, 06137552, 4258122 #### [facility] (DEFAULT) [address] [place] [address] 97147 Anion gap [Moles/Vol] 12.0 mmol/L Normal 5.0-19.0 [facility] Comment on above: Performed By: #### 1 [id number], 8611797, 89076088, 7861325 #### [facility] (DEFAULT) [address] [place] [address] 88787 AST [Catalytic activity/Vol] 24 U/L Normal 15-41 [facility] Comment on above: Performed By: #### 1 [id number], 5456591, 89435319, 8640858 #### [facility] (DEFAULT) [address] [place] [address] 75646 Bili Total 0.5 mg/dL Normal 0.3-1.2 [facility] Comment on above: Performed By: #### 1 [id number], 8450721, 49717451, 8892786 #### [facility] (DEFAULT) [address] [place] [address] 65757 Calcium [Mass/Vol] 7.4 mg/dL Low 8.9-10.3 [facility] Comment on above: Performed By: #### 1 [id number], 1462448, 22720533, 2168111 #### [facility] (DEFAULT) [address] [place] [address] 31718 Chloride [Moles/Vol] 108 mmol/L Normal 101-111 [facility] Comment on above: Performed By: #### 1 [id number], 9670391, 04064623, 7430233 #### [facility] (DEFAULT) [address] [place] [address] 40640 CO2 [Moles/Vol] 26 mmol/L Normal 21-32 [facility] Comment on above: Performed By: #### 1 [id number], 8169762, 41420006, 0969190 #### [facility] (DEFAULT) [address] [place] [address] 88100 Creatinine [Mass/Vol] 0.68 mg/dL Normal 0.60-1.30 [facility] Comment on above: Performed By: #### 1 [id number], 7524346, 69701252, 7937176 #### [facility] (DEFAULT) [address] [place] [address] 20752 Globulin (S) [Mass/Vol] 1.7 g/dL Normal 1.5-4.3 [facility] Comment on above: Performed By: #### 1 [id number], 6447011, 60279109, 3130171 #### [facility] (DEFAULT) [address] [place] [address] 70134 Glucose [Mass/Vol] 80.0 mg/dL Normal 74.0-118.0 [facility] Comment on above: Performed By: #### 1 [id number], 2617051, 60126387, 6984510 #### [facility] (DEFAULT) [address] [place] [address] 91736 Osmolality 279 mOsm/L Invalid Interpretation Code [facility] Comment on above: Performed By: #### 1 [id number], 5725306, 81596627, 0847808 #### [facility] (DEFAULT) [address] [place] [address] 12338 Potassium [Moles/Vol] 5.5 mmol/L High 3.6-5.1 [facility] Comment on above: Performed By: #### 1 [id number], 5978160, 39933394, 5299816 #### [facility] (DEFAULT) [address] [place] [address] 59753 Protein [Mass/Vol] 4.7 g/dL Low 6.5-8.1 [facility] Comment on above: Performed By: #### 1 [id number], 4919008, 40786686, 7828983 #### [facility] (DEFAULT) [address] [place] [address] 82640 Sodium [Moles/Vol] 140.0 mmol/L Normal 136.0-144.0 [facility] Comment on above: Performed By: #### 1 [id number], [id number], [id number] #### [facility] (DEFAULT) [address] [place] [address] 41563 Urea nitrogen [Mass/Vol] 14 mg/dL Normal 8-26 [facility] Comment on above: Performed By: #### 1 [id number], [id number], [id number], [id number] #### [facility] (DEFAULT) [address] [place] [address] 39346 Urea nitrogen/Creatinin e [Mass ratio] 21.0 mg/mg High 4.6-16.2 [facility] Comment on above: Performed By: #### 1 [id number], [id number], [id number], [id number] #### [facility] (DEFAULT) [address] [place] [address] 17767 Inpatient Patient Summaryon 08-14-2021 Inpatient Patient Summary [address] [address] Patient Discharge Instructions Name: ASHVIN RENE Berry : 1955 Patient Address: [address] [place] [address] Primary Care Provider: Name: TUSHAR SOLANO JR. After you are discharged if you find you have any questions, please, call [phone] ext [phone] to speak to a nurse. Discharge Diagnosis: [...] alcohol and/or drug addiction problems; contact the [facility] 03/02 Crisis Hotline -Text 4HWDG to 329388. If you received any narcotics, sedation, or [...] business decisions or sign any legal documents [facility] would like to thank you for allowing us to assist you with your healthcare needs. The following includes patient education materials and information regarding your injury/illness. ASHVIN RENE has been given the following list of follow-up instructions, prescriptions, and patient education materials: Follow-up Instructions With: Address: When: TUSHAR SOLANO JR. [address] [place] [address] [facility] (1) 08/21/2021 2:45 PM Medications During the course of your visit, your medication list was updated with the most current information. The details of those changes are reflected below: New Medications [facility], [address] [place] [address] [id number], [phone] ferrous sulfate (ferrous sulfate 325 mg (65 mg elemental iron) oral tablet) 1 tab(s) Oral 2 times a day for 30 Days. Refills: 1. torsemide (torsemide 20 mg oral tablet) 1 tab(s) Oral every other day for 30 Days. [facility]. Refills: 1. Medications That Were Updated - Follow Below Instructions Other Medications Updated: fludrocortisone (fludrocortisone 0.1 mg oral tablet) 0.5 tab(s) Oral every day. TAKE IN MORNING MEAL, HOLD IF STANDING BP [id number]. Medications to Continue That Have Not Changed [...] mg oral tablet) potassium chloride (Potassium Chloride (Tnl-Mjee-Sof 10) 10 mEq oral tablet, extended release) [...] 250 mg oral (more content not included)... [facility] - [facility] - [facility] Results [id number] [facility] Pharmacy Noteon 08-14-2021 Pharmacy Note I have personally re viewed the patient's medication list upon discharge including, prescription medications, OTC products, vitamins and supplements. Below are the following medications the patient is discharged on. New Medications [facility], [address] [place] [address] [id number], [phone] ferrous sulfate (ferrous sulfate 325 mg (65 mg elemental iron) oral tablet) 1 tab(s) Oral 2 times a day for 30 Days. Refills: 1. torsemide (torsemide 20 mg oral tablet) 1 tab(s) Oral every other day for 30 Days. [facility]. Refills: 1. Medications That Were Updated - Follow Below Instructions Other Medications Updated: fludrocortisone (fludrocortisone 0.1 mg oral tablet) 0.5 tab(s) Oral every day. TAKE IN MORNING MEAL, HOLD IF STANDING BP [id number]. Updated: midodrine (midodrine 10 mg oral tablet) [...] Oral every day. potassium chloride (Potassium Chloride (Jza-Mion-Yvf 10) 10 mEq oral tablet, extended release) 1 tab(s) Oral 3 times a day. vancomycin (Firvanq 25 mg/mL oral liquid) 5 Milliliter Oral 4 times a day. [Electronically Signed on: 08/14/2021 15:17 EST] Nadia Devi [Verified on: 08/14/2021 15:17 EST] Nadia Devi [facility] .Auto Diff 1on 08-13-2021 Auto [place] % 6 % Normal 07-25 [facility] Comment on above: Performed By: #### 1 [id number], [id number], [id number], [id number] #### [facility] (DEFAULT) [address] [place] [address] 09684 Baso Abs# 0.0 x10 Normal 0.0-0.2 [facility] Comment on above: Performed By: #### 1 [id number], [id number], [id number], [id number] #### [facility] (DEFAULT) [address] [place] [address] 92481 Basophils/100 WBC (Bld) 0.5 % Normal 0.2-2.0 [facility] Comment on above: Performed By: #### 1 [id number], [id number], [id number], [id number] #### [facility] (DEFAULT) [address] [place] [address] 61981 Eos Abs# 0.1 x10 Normal 0.0-0.4 [facility] Comment on above: Performed By: #### 1 [id number], [id number], [id number], [id number] #### [facility] (DEFAULT) [address] [place] [address] 74955 Eosinophils/100 WBC (Bld) 1.7 % Normal 0.9-4.0 [facility] Comment on above: Performed By: #### 1 [id number], [id number], [id number], [id number] #### [facility] (DEFAULT) [address] [place] [address] 34192 Lymph Abs# 1.4 x10 Normal 1.3-2.9 [facility] Comment on above: Performed By: #### 1 [id number], [id number], [id number], [id number] #### [facility] (DEFAULT) [address] [place] [address] 46795 Lymphocytes/100 WBC (Bld) 21 % Normal 14-48 [facility] Comment on above: Performed By: #### 1 [id number], [id number], [id number], [id number] #### [facility] (DEFAULT) [address] [place] [address] 03187 [place] Abs# 0.4 x10 Normal 0.0-0.8 [facility] Comment on above: Performed By: #### 1 [id number], [id number], [id number], [id number] #### [facility] (DEFAULT) [address] [place] [address] 00025 Neut Abs# 4.5 x10 Normal 1.5-9.2 [facility] Comment on above: Performed By: #### 1 [id number], [id number], [id number], [id number] #### [facility] (DEFAULT) [address] [place] [address] 13797 Neutrophils/100 WBC (Bld) 71 % Normal 44-88 [facility] Comment on above: Performed By: #### 1 [id number], [id number], [id number], [id number] #### [facility] (DEFAULT) [address] [place] [address] 38111 ABORhon 08-13-2021 ABO and Rh group Nom (Bld) Placed by Discern Expert due to BBPR being ordered. Hx Check: Found Anti-A: 0 Anti-B: 0 Anti-D: 4+ DCon: NT A1: 4+ B: 4+ ABORh Interp: O POS Invalid Interpretation Code [facility] Comment on above: Performed By: #### 1 [id number], [id number], [id number], [id number] #### [facility] (DEFAULT) [address] [place] [address] 76472 ABSC Gelon 08-13-2021 ABSC Gel Placed by Discern Ex pert due to BBPR being ordered. SC1 Gel: 0 SC2 Gel: 0 SC3 Gel: 0 ABSC Gel Interp: Negative Normal [facility] Comment on above: Performed By: #### 1 [id number], [id number], [id number], [id number] #### [facility] (DEFAULT) [address] [place] [address] 94686 BMP Standardon 08-13-2021 Anion gap [Moles/Vol] 13.0 mmol/L Normal 5.0-19.0 [facility] Comment on above: Performed By: #### 1 [id number], 5602810, 82348175, 2646386 #### [facility] (DEFAULT) [address] [place] [address] 04180 Calcium [Mass/Vol] 6.8 mg/dL Low 8.9-10.3 [facility] Comment on above: Performed By: #### 1 [id number], 9162286, 36841249, 1948726 #### [facility] (DEFAULT) [address] [place] [address] 86199 Chloride [Moles/Vol] 106 mmol/L Normal 101-111 [facility] Comment on above: Performed By: #### 1 [id number], 1245195, 19948935, 5577617 #### [facility] (DEFAULT) [address] [place] [address] 77702 CO2 [Moles/Vol] 24 mmol/L Normal 21-32 [facility] Comment on above: Performed By: #### 1 [id number], 2354144, 54738855, 7415408 #### [facility] (DEFAULT) [address] [place] [address] 42351 Creatinine [Mass/Vol] 0.65 mg/dL Normal 0.60-1.30 [facility] Comment on above: Performed By: #### 1 [id number], 2957194, 01139574, 2862761 #### [facility] (DEFAULT) [address] [place] [address] 74559 Glucose [Mass/Vol] 108.0 mg/dL Normal 74.0-118.0 [facility] Comment on above: Performed By: #### 1 [id number], 8334112, 11876666, 2286699 #### [facility] (DEFAULT) [address] [place] [address] 74251 Osmolality 275 mOsm/L Invalid Interpretation Code [facility] Comment on above: Performed By: #### 1 [id number], 4344057, 50903207, 5515015 #### [facility] (DEFAULT) [address] [place] [address] 26385 Potassium [Moles/Vol] 5.0 mmol/L Normal 3.6-5.1 [facility] Comment on above: Result Comment: Pota ssium medication/therapy Performed By: #### 1 [id number], 3555042, 64573862, 4000353 #### [facility] (DEFAULT) [address] [place] [address] Sodium [Moles/Vol] 138.0 mmol/L Normal 136.0-144.0 [facility] Comment on above: Performed By: #### 1 [id number], 6183862, 14616014, 0692198 #### [facility] (DEFAULT) [address] [place] [address] Urea nitrogen [Mass/Vol] 10 mg/dL Normal 8-26 [facility] Comment on above: Performed By: #### 1 [id number], 5223383, 17774617, 8035570 #### [facility] (DEFAULT) [address] [place] [address] Urea nitrogen/Creatinin e [Mass ratio] 15.0 mg/mg Normal 4.6-16.2 [facility] Comment on above: Performed By: #### 1 [id number], 0221293, 62978701, 3645689 #### [facility] (DEFAULT) [address] [place] [address] eGFR Non AA >60 Invalid Interpretation Code [facility] Comment on above: Performed By: #### 1 [id number], 7870321, 01320711, 4723147 #### [facility] (DEFAULT) [address] [place] [address] eGFR AA >60 Invalid Interpretation Code [facility] Comment on above: Result Comment: [employer] juanito Kidney disease could be indicated at eGFRs of less than 60 ml/min/1.73m2. Kidney Failure is indicated at less than 15 ml/min/1.73m2 Performed By: #### 1 [id number], 8858451, 15041961, 7600631 #### [facility] (DEFAULT) [address] [place] [address] CBC w/ Auto Diffon 2 Erythrocyte distribution width (RBC) [Ratio] 17.8 % High 11.5-15.0 [facility] Comment on above: Performed By: #### 1 [id number], 9303721, 03205959, 1313099 #### [facility] (DEFAULT) [address] [place] [address] Hematocrit (Bld) [Volume fraction] 26.7 % Low 33.7-40.4 [facility] Comment on above: Performed By: #### 1 [id number], 7210063, 62146559, 8490639 #### [facility] (DEFAULT) [address] [place] [address] Hemoglobin (Bld) [Mass/Vol] 7.8 g/dL Low 11.3-15.9 [facility] Comment on above: Performed By: #### 1 144914869, 4386606, 92129571, 8259519 #### [facility] (DEFAULT) [address] [place] [address] Instr WBC 6.4 x10 Invalid Interpretation Code [facility] Comment on above: Performed By: #### 1 [id number], 0708586, 35322973, 4538100 #### [facility] (DEFAULT) [address] [place] [address] Man Diff? Auto Normal [facility] Comment on above: Performed By: #### 1 [id number], 0582724, 08057798, 3602533 #### [facility] (DEFAULT) [address] [place] [address] 89402 MCH (RBC) [Entitic mass] 27 pg Normal 24-34 [facility] Comment on above: Performed By: #### 1 [id number], 0102353, 41089020, 5780746 #### [facility] (DEFAULT) [address] [place] [address] 96500 MCHC (RBC) [Mass/Vol] 29 g/dL Normal 26-37 [facility] Comment on above: Performed By: #### 1 [id number], 4726553, 23268042, 2716519 #### [facility] (DEFAULT) [address] [place] [address] 40518 MCV (RBC) [Entitic vol] 94 fL Normal 81-100 [facility] Comment on above: Performed By: #### 1 605873756, 8616330, 15168555, 7073487 #### [facility] (DEFAULT) [address] [place] [address] Platelet 309 x10 Normal 138-427 [facility] Comment on above: Performed By: #### 1 [id number], 3787866, 66441607, 1924487 #### [facility] (DEFAULT) [address] [place] [address] Platelet mean volume (Bld) [Entitic vol] 9.2 fL Normal 6.3-10.2 [facility] Comment on above: Performed By: #### 1 [id number], 7116932, 96937770, 7806468 #### [facility] (DEFAULT) [address] [place] [address] RBC 2.85 x10 Low 3.70-5.30 [facility] Comment on above: Performed By: #### 1 [id number], 7066244, 10079706, 1926810 #### [facility] (DEFAULT) [address] [place] [address] WBC 6.4 x10 Normal 3.5-10.5 [facility] Comment on above: Performed By: #### 1 [id number], 2019180, 20867088, 0485138 #### [facility] (DEFAULT) [address] [place] [address] H&Hon 08-13-2021 Hematocrit (Bld) [Volume fraction] 29.9 % Low 33.7-40.4 [facility] Comment on above: Performed By: #### 1 [id number], 7112504, 22908793, 9021322 #### [facility] (DEFAULT) [address] [place] [address] Hemoglobin (Bld) [Mass/Vol] 8.7 g/dL Low 11.3-15.9 [facility] Comment on above: Performed By: #### 1 [id number], 9978833, 45749413, 6831094 #### [facility] (DEFAULT) [address] [place] [address] Magnesiumon 08-13-2021 Magnesium [Mass/Vol] 2.07 mg/dL Normal 1.80-2.50 [facility] Comment on above: Performed By: #### 1 106448954, 6997331, 69714266, 4548185 #### [facility] (DEFAULT) [address] [place] [address] 94973 Nutrition Noteon 08-13-2021 Nutrition Note 08/12 wt 60.1kg, questionable 12kg loss from admit wt at 72kg. Pt did received lasix, IV alb with improvement noted in LE edema, however, still question loss of 26lb in less than 1wk. Alb back at 3.3, stable. H/H also on recheck, stable. Intake avg 25-50%. Per rounds, if hgb remains stable, Pt to be discharged back to [facility]. If discharge plans change, will re-add supplements. Will request re-weight in am. [facility] RBC.on 08-13-2021 RBC. # of Units: 1 RBC Indication: Symptom Anemia Additional Units?: No Date Needed: 08/13/2021 Red Cell Status: RBC Ready [facility] Comment on above: Performed By: #### 1 [id number], 1648011, 80633142, 1532440 #### [facility] (DEFAULT) [address] [place] [address] 63530 Telemetry Stripson 2 Telemetry Strips [id number] [facility] .Auto Diff 1on 08-12-2021 Auto [place] % 8 % Normal -12 [facility] Comment on above: Performed By: #### 7 174248, 95341664, 6643758, 2475336558 #### [facility] (DEFAULT) [address] [place] [address] 38899 Baso Abs# 0.0 x10 Normal 0.0-0.2 [facility] Comment on above: Performed By: #### 7 791785, 47670532, 2257448, 8424319185 #### [facility] (DEFAULT) [address] [place] [address] 23889 Basophils/100 WBC (Bld) 0.7 % Normal 0.2-2.0 [facility] Comment on above: Performed By: #### 7 986826, 32763129, 6398556, 6196969710 #### [facility] (DEFAULT) [address] [place] [address] 78192 Eos Abs# 0.1 x10 Normal 0.0-0.4 [facility] Comment on above: Performed By: #### 7 478313, 78896344, 9389225, 0355904917 #### [facility] (DEFAULT) [address] [place] [address] 22706 Eosinophils/100 WBC (Bld) 1.8 % Normal 0.9-4.0 [facility] Comment on above: Performed By: #### 7 916716, 44837641, 1972134, 2846141339 #### [facility] (DEFAULT) [address] [place] [address] 31196 Lymph Abs# 1.6 x10 Normal 1.3-2.9 [facility] Comment on above: Performed By: #### 7 672104, 33599133, 2564181, 3049885756 #### [facility] (DEFAULT) [address] [place] [address] 76128 Lymphocytes/100 WBC (Bld) 30 % Normal 14-48 [facility] Comment on above: Performed By: #### 7 600522, 02983283, 3531599, 2571242983 #### [facility] (DEFAULT) [address] [place] [address] 19405 [place] Abs# 0.4 x10 Normal 0.0-0.8 [facility] Comment on above: Performed By: #### 7 102094, 37732361, 2082544, 0702518759 #### [facility] (DEFAULT) [address] [place] [address] 81226 Neut Abs# 3.2 x10 Normal 1.5-9.2 [facility] Comment on above: Performed By: #### 7 761526, 01129568, 2723533, 4630214531 #### [facility] (DEFAULT) [address] [place] [address] 89321 Neutrophils/100 WBC (Bld) 60 % Normal 44-88 [facility] Comment on above: Performed By: #### 7 547855, 45612306, 8713998, 0361315850 #### [facility] (DEFAULT) [address] [place] [address] 06136 CBC w/ Auto Diffon 2 Erythrocyte distribution width (RBC) [Ratio] 17.9 % High 11.5-15.0 [facility] Comment on above: Performed By: #### 7 360121, 21895805, 3050951, 3864741278 #### [facility] (DEFAULT) [address] [place] [address] Hematocrit (Bld) [Volume fraction] 28.6 % Low 33.7-40.4 [facility] Comment on above: Performed By: #### 7 866333, 98568143, 0991333, 0993416486 #### [facility] (DEFAULT) [address] [place] [address] Hemoglobin (Bld) [Mass/Vol] 8.5 g/dL Low 11.3-15.9 [facility] Comment on above: Performed By: #### 7 388402, 63666588, 8322312, 3970633314 #### [facility] (DEFAULT) [address] [place] [address] Instr WBC 5.4 x10 Invalid Interpretation Code [facility] Comment on above: Performed By: #### 7 163956, 40334140, 1770674, 5560124274 #### [facility] (DEFAULT) [address] [place] [address] 65446 Man Diff? Auto Normal [facility] Comment on above: Performed By: #### 7 706807, 98663163, 8597451, 0364123749 #### [facility] (DEFAULT) [address] [place] [address] 05170 MCH (RBC) [Entitic mass] 28 pg Normal 24-34 [facility] Comment on above: Performed By: #### 7 391910, 67809965, 6027451, 5581253240 #### [facility] (DEFAULT) [address] [place] [address] 29610 MCHC (RBC) [Mass/Vol] 30 g/dL Normal 26-37 [facility] Comment on above: Performed By: #### 7 582449, 23360601, 0310553, 1898081338 #### [facility] (DEFAULT) [address] [place] [address] 85957 MCV (RBC) [Entitic vol] 94 fL Normal 81-100 [facility] Comment on above: Performed By: #### 7 338817, 06518916, 3669494, 0323667792 #### [facility] (DEFAULT) [address] [place] [address] 68252 Platelet 305 x10 Normal 138-427 [facility] Comment on above: Performed By: #### 7 315429, 09401472, 8215722, 5428735101 #### [facility] (DEFAULT) [address] [place] [address] 72579 Platelet mean volume (Bld) [Entitic vol] 9.8 fL Normal 6.3-10.2 [facility] Comment on above: Performed By: #### 7 408236, 15514033, 8974376, 5571287817 #### [facility] (DEFAULT) [address] [place] [address] 99077 RBC 3.03 x10 Low 3.70-5.30 [facility] Comment on above: Performed By: #### 7 757190, 38473414, 9991291, 2143795470 #### [facility] (DEFAULT) [address] [place] [address] 40688 WBC 5.4 x10 Normal 3.5-10.5 [facility] Comment on above: Performed By: #### 7 976945, 34060108, 0757139, 3400192024 #### [facility] (DEFAULT) [address] [place] [address] 95835 CMP Standardon 08-12-2021 Albumin [Mass/Vol] 3.3 g/dL Low 3.5-5.0 [facility] Comment on above: Performed By: #### 7 512174, 33681856, 5539600, 7639870640 ####[facility] (DEFAULT)[address] [place] [address] 28762 Albumin/Globulin [Mass ratio] 2.4 {ratio} Normal 1.4-2.6 [facility] Comment on above: Performed By: #### 7 876131, 09677493, 9857388, 0586032855 ####[facility] (DEFAULT)[address] [place] [address] 09380 Alk Phos 28 IU/L Low 32-91 [facility] Comment on above: Performed By: #### 7 937609, 47565389, 0078144, 2363556697 ####[facility] (DEFAULT)[address] [place] [address] 69372 ALT [Catalytic activity/Vol] 14.0 U/L Normal 14.0-54.0 [facility] Comment on above: Performed By: #### 7 415841, 00261574, 9348279, 0063441140 ####[facility] (DEFAULT)[address] [place] [address] 86114 Anion gap [Moles/Vol] 15.0 mmol/L Normal 5.0-19.0 [facility] Comment on above: Performed By: #### 7 052163, 04397253, 9966582, 4928816592 ####[facility] (DEFAULT)[address] [place] [address] 67056 AST [Catalytic activity/Vol] 27 U/L Normal 15-41 [facility] Comment on above: Performed By: #### 7 292304, 49648259, 1743038, 7326521332 ####[facility] (DEFAULT)[address] [place] [address] 32203 Bili Total 0.5 mg/dL Normal 0.3-1.2 [facility] Comment on above: Performed By: #### 7 436158, 03138804, 2116884, 0147511441 ####[facility] (DEFAULT)[address] [place] [address] 80157 Calcium [Mass/Vol] 6.7 mg/dL Low 8.9-10.3 [facility] Comment on above: Performed By: #### 7 265063, 59436053, 3739023, 8848563609 ####[facility] (DEFAULT)[address] [place] [address] 74405 Chloride [Moles/Vol] 103 mmol/L Normal 101-111 [facility] Comment on above: Performed By: #### 7 956929, 54962854, 3668878, 4143386307 ####[facility] (DEFAULT)[address] [place] [address] CO2 [Moles/Vol] 27 mmol/L Normal 21-32 [facility] Comment on above: Performed By: #### 7 237955, 38191021, 1193185, 9204493901 ####[facility] (DEFAULT)[address] [place] [address] Creatinine [Mass/Vol] 0.68 mg/dL Normal 0.60-1.30 [facility] Comment on above: Performed By: #### 7 722397, 46228497, 0295779, 3029083659 ####[facility] (DEFAULT)[address] [place] [address] Globulin (S) [Mass/Vol] 1.4 g/dL Low 1.5-4.3 [facility] Comment on above: Performed By: #### 7 107490, 91403149, 6435593, 2831345508 ####[facility] (DEFAULT)[address] [place] [address] Glucose [Mass/Vol] 76.0 mg/dL Normal 74.0-118.0 [facility] Comment on above: Performed By: #### 7 648706, 21372865, 2958408, 0045940851 ####[facility] (DEFAULT)[address] [place] [address] 24781 Osmolality 278 mOsm/L Invalid Interpretation Code [facility] Comment on above: Performed By: #### 7 331569, 37085805, 1175117, 9479329618 ####[facility] (DEFAULT)[address] [place] [address] Potassium [Moles/Vol] 4.3 mmol/L Normal 3.6-5.1 [facility] Comment on above: Result Comment: IV T herapy Performed By: #### 7 206251, 44055917, 9917305, 8291517183 ####[facility] (DEFAULT)[address] [place] [address] Protein [Mass/Vol] 4.7 g/dL Low 6.5-8.1 [facility] Comment on above: Performed By: #### 7 082437, 23305864, 3145626, 6240312316 ####[facility] (DEFAULT)[address] [place] [address] Sodium [Moles/Vol] 141.0 mmol/L Normal 136.0-144.0 [facility] Comment on above: Performed By: #### 7 673599, 13341197, 5667671, 2525991145 ####[facility] (DEFAULT)[address] [place] [address] Urea nitrogen [Mass/Vol] 8 mg/dL Normal 8-26 [facility] Comment on above: Performed By: #### 7 222493, 48814524, 1372639, 0472936801 ####[facility] (DEFAULT)[address] [place] [address] Urea nitrogen/Creatinin e [Mass ratio] 12.0 mg/mg Normal 4.6-16.2 [facility] Comment on above: Performed By: #### 7 848062, 43182705, 4103988, 1774899897 ####[facility] (DEFAULT)[address] [place] [address] eGFR Non AA >60 Invalid Interpretation Code [facility] Comment on above: Performed By: #### 7 892618, 94463083, 0828639, 6187691318 ####[facility] (DEFAULT)[address] [place] [address] eGFR AA >60 Invalid Interpretation Code [facility] Comment on above: Result Comment: [employer] juanito Kidney disease could be indicated at eGFRs of less than 60 ml/min/1.73m2. Kidney Failure is indicated at less than 15 ml/min/1.73m2 Performed By: #### 7 616954, 79378237, 5529784, [id number] ####[facility] (DEFAULT)[address] [place] [address] Magnesiumon 08-12-2021 Magnesium [Mass/Vol] 1.21 mg/dL Low 1.80-2.50 [facility] Comment on above: Performed By: #### 7 077780, 26601078, 2049668, 3021545233 #### [facility] (DEFAULT) [address] [place] [address] .Auto Diff 1on 08-11-2021 Auto [place] % 8 % Normal 1-12 [facility] Comment on above: Performed By: #### 2 725048, 6575072695, 1270758, 96608512 ####[facility] (DEFAULT)[address] [place] [address] Baso Abs# 0.0 x10 Normal 0.0-0.2 [facility] Comment on above: Performed By: #### 2 533238, 3700130931, 1544198, 92494346 ####[facility] (DEFAULT)[address] [place] [address] Basophils/100 WBC (Bld) 0.6 % Normal 0.2-2.0 [facility] Comment on above: Performed By: #### 2 483860, 1951309497, 8942387, 51041068 ####[facility] (DEFAULT)[address] [place] [address] Eos Abs# 0.2 x10 Normal 0.0-0.4 [facility] Comment on above: Performed By: #### 2 300099, 0198128710, 8732477, 81252662 ####[facility] (DEFAULT)[address] [place] [address] Eosinophils/100 WBC (Bld) 3.1 % Normal 0.9-4.0 [facility] Comment on above: Performed By: #### 2 524633, 3314292874, 9467129, 99876761 ####[facility] (DEFAULT)[address] [place] [address] Lymph Abs# 1.4 x10 Normal 1.3-2.9 [facility] Comment on above: Performed By: #### 2 741706, 8947378870, 4960391, 87305268 ####[facility] (DEFAULT)[address] [place] [address] Lymphocytes/100 WBC (Bld) 28 % Normal 14-48 [facility] Comment on above: Performed By: #### 2 315196, 1710836575, 1179108, 27522056 ####[facility] (DEFAULT)[address] [place] [address] [place] Abs# 0.4 x10 Normal 0.0-0.8 [facility] Comment on above: Performed By: #### 2 188671, 0306318827, 7294632, 34423348 ####[facility] (DEFAULT)[address] [place] [address] Neut Abs# 3.2 x10 Normal 1.5-9.2 [facility] Comment on above: Performed By: #### 2 053452, 3751842021, 3194232, 88583269 ####[facility] (DEFAULT)[address] [place] [address] Neutrophils/100 WBC (Bld) 61 % Normal 44-88 [facility] Comment on above: Performed By: #### 2 430664, 2472410194, 3382296, 21124435 ####[facility] (DEFAULT)[address] [place] [address] Standardon 08-11-2021 eGFR Non AA >60 Invalid Interpretation Code [facility] Comment on above: Performed By: #### 2 220819, 3641288904, 1488246, 27853488 ####[facility] (DEFAULT)[address] [place] [address] eGFR AA >60 Invalid Interpretation Code [facility] Comment on above: Result Comment: [employer] juanito Kidney disease could be indicated at eGFRs of less than 60 ml/min/1.73m2. Kidney Failure is indicated at less than 15 ml/min/1.73m2 Performed By: #### 2 883872, 6350967575, 2437120, 53351215 ####[facility] (DEFAULT)[address] [place] [address] Anion gap [Moles/Vol] 17.0 mmol/L Normal 5.0-19.0 [facility] Comment on above: Performed By: #### 2 122190, 2288316447, 9396757, 90581216 ####[facility] (DEFAULT)[address] [place] [address] 46507 Calcium [Mass/Vol] 6.7 mg/dL Low 8.9-10.3 [facility] Comment on above: Performed By: #### 2 021432, 1495215856, 2801698, 04642754 ####[facility] (DEFAULT)[address] [place] [address] 05024 Chloride [Moles/Vol] 104 mmol/L Normal 101-111 [facility] Comment on above: Performed By: #### 2 648088, 5886417874, 7923120, 00486221 ####[facility] (DEFAULT)[address] [place] [address] 88193 CO2 [Moles/Vol] 24 mmol/L Normal 21-32 [facility] Comment on above: Performed By: #### 2 [id number], [id number], [id number], [id number] ####[facility] (DEFAULT)[address] [place] [address] 95443 Creatinine [Mass/Vol] 0.57 mg/dL Low 0.60-1.30 [facility] Comment on above: Performed By: #### 2 [id number], [id number], [id number], [id number] ####[facility] (DEFAULT)[address] [place] [address] 15689 Glucose [Mass/Vol] 81.0 mg/dL Normal 74.0-118.0 [facility] Comment on above: Performed By: #### 2 [id number], [id number], [id number], [id number] ####[facility] (DEFAULT)[address] [place] [address] 62873 Osmolality 278 mOsm/L Invalid Interpretation Code [facility] Comment on above: Performed By: #### 2 [id number], [id number], [id number], [id number] ####[facility] (DEFAULT)[address] [place] [address] 45528 Potassium [Moles/Vol] 3.6 mmol/L Normal 3.6-5.1 [facility] Comment on above: Performed By: #### 2 [id number], [id number], [id number], [id number] ####[facility] (DEFAULT)[address] [place] [address] 28885 Sodium [Moles/Vol] 141.0 mmol/L Normal 136.0-144.0 [facility] Comment on above: Performed By: #### 2 [id number], [id number], [id number], [id number] ####[facility] (DEFAULT)[address] [place] [address] Urea nitrogen [Mass/Vol] 6 mg/dL Low 8-26 [facility] Comment on above: Performed By: #### 2 [id number], [id number], [id number], [id number] ####[facility] (DEFAULT)[address] [place] [address] Urea nitrogen/Creatinin e [Mass ratio] 11.0 mg/mg Normal 4.6-16.2 [facility] Comment on above: Performed By: #### 2 [id number], [id number], [id number], [id number] ####[facility] (DEFAULT)[address] [place] [address] CBC w/ Auto Diffon Erythrocyte distribution width (RBC) [Ratio] 17.9 % High 11.5-15.0 [facility] Comment on above: Performed By: #### 2 336927, 1505359613, 6577392, 23146280 ####[facility] (DEFAULT)[address] [place] [address] 00417 Hematocrit (Bld) [Volume fraction] 26.2 % Low 33.7-40.4 [facility] Comment on above: Performed By: #### 2 173796, 0365270182, 5440299, 38510265 ####[facility] (DEFAULT)[address] [place] [address] Hemoglobin (Bld) [Mass/Vol] 7.8 g/dL Low 11.3-15.9 [facility] Comment on above: Performed By: #### 2 480349, 5340536903, 5330314, 02569865 ####[facility] (DEFAULT)[address] [place] [address] Instr WBC 5.2 x10 Invalid Interpretation Code [facility] Comment on above: Performed By: #### 2 342466, [id number], 4088753, 63745602 ####[facility] (DEFAULT)[address] [place] [address] Man Diff? Auto Normal [facility] Comment on above: Performed By: #### 2 473514, 8976604749, 9343786, 05642502 ####[facility] (DEFAULT)[address] [place] [address] MCH (RBC) [Entitic mass] 28 pg Normal 24-34 [facility] Comment on above: Performed By: #### 2 375250, 6498198645, 8642374, 35988870 ####[facility] (DEFAULT)[address] [place] [address] MCHC (RBC) [Mass/Vol] 30 g/dL Normal 26-37 [facility] Comment on above: Performed By: #### 2 302458, 7998866540, 2023098, 04270942 ####[facility] (DEFAULT)[address] [place] [address] 36178 MCV (RBC) [Entitic vol] 93 fL Normal 81-100 [facility] Comment on above: Performed By: #### 2 331081, 2694110439, 0812155, 41461785 ####[facility] (DEFAULT)[address] [place] [address] 53668 Platelet 291 x10 Normal 138-427 [facility] Comment on above: Performed By: #### 2 108994, 8811959976, 8839802, 88878293 ####[facility] (DEFAULT)[address] [place] [address] 91343 Platelet mean volume (Bld) [Entitic vol] 9.6 fL Normal 6.3-10.2 [facility] Comment on above: Performed By: #### 2 280156, 6950047155, 8373061, 36107209 ####[facility] (DEFAULT)[address] [place] [address] 45256 RBC 2.82 x10 Low 3.70-5.30 [facility] Comment on above: Performed By: #### 2 946703, 2148680182, 1876607, 90165094 ####[facility] (DEFAULT)[address] [place] [address] 61589 WBC 5.2 x10 Normal 3.5-10.5 [facility] Comment on above: Performed By: #### 2 677139, 2447221902, 7087581, 62255974 ####[facility] (DEFAULT)[address] [place] [address] 84205 Magnesiumon 08-11-2021 Magnesium [Mass/Vol] 1.43 mg/dL Low 1.80-2.50 [facility] Comment on above: Performed By: #### 2 103085, 2606004172, 5445215, 27114008 ####[facility] (DEFAULT)[address] [place] [address] 42101 PTH, Intact LCon 08-11-2021 PTH, Intact LC 125 pg/mL High 15-65 [facility] Comment on above: Result Comment: Perf ormed At: [facility] [address] [id number] Brenna Iyer PhD Ph:[phone] Performed By: #### 2 [id number], 93521111 ####[facility] (DEFAULT)[address] [place] [address] .Auto Diff 1on 08-10-2021 Auto [place] % 8 % Normal 1-12 [facility] Comment on above: Performed By: #### 1 746777574, 7103322222, 0206083, 59298770, 6222256, 0908729953 ####[facility] (DEFAULT)[address] [place] [address] 64274 Baso Abs# 0.0 x10 Normal 0.0-0.2 [facility] Comment on above: Performed By: #### 1 916329864, 9817763857, 6840155, 06206976, 3390385, 0929949390 ####[facility] (DEFAULT)[address] [place] [address] 92522 Basophils/100 WBC (Bld) 0.8 % Normal 0.2-2.0 [facility] Comment on above: Performed By: #### 1 133268777, 7627227650, 8297494, 74019377, 3474367, 7989568743 ####[facility] (DEFAULT)[address] [place] [address] 29461 Eos Abs# 0.2 x10 Normal 0.0-0.4 [facility] Comment on above: Performed By: #### 1 476108277, 8996344687, 0954462, 97583764, 2049606, 9202318419 ####[facility] (DEFAULT)[address] [place] [address] 30601 Eosinophils/100 WBC (Bld) 3.3 % Normal 0.9-4.0 [facility] Comment on above: Performed By: #### 1 501184456, 2459958081, 1621452, 25166546, 5335687, 8374636732 ####[facility] (DEFAULT)[address] [place] [address] 69398 Lymph Abs# 1.2 x10 Low 1.3-2.9 [facility] Comment on above: Performed By: #### 1 820770967, 1631633348, 8118134, 42389420, 6541634, 4162648469 ####[facility] (DEFAULT)[address] [place] [address] 15194 Lymphocytes/100 WBC (Bld) 24 % Normal 14-48 [facility] Comment on above: Performed By: #### 1 372631404, 5671796238, 1696644, 06265396, 6769728, 2628708709 ####[facility] (DEFAULT)[address] [place] [address] 22972 [place] Abs# 0.4 x10 Normal 0.0-0.8 [facility] Comment on above: Performed By: #### 1 191916704, 7719435657, 6806346, 05485479, 6768568, 8496687821 ####[facility] (DEFAULT)[address] [place] [address] Neut Abs# 3.1 x10 Normal 1.5-9.2 [facility] Comment on above: Performed By: #### 1 414363839, 7979128397, 7837342, 01506773, 8455111, 8678635965 ####[facility] (DEFAULT)[address] [place] [address] Neutrophils/100 WBC (Bld) 64 % Normal 44-88 [facility] Comment on above: Performed By: #### 1 027424109, 0548812051, 2570184, 90043146, 5915088, 1699811804 ####[facility] (DEFAULT)[address] [place] [address] 91688 Anesthesia Noteon 08-10-2021 Anesthesia Note Patient: SUSAN [...] on: 08/10/2021 10:12 EST] Rony Ordonez MD [facility] Anesthesia Note Patient: SUSAN RENE Age: 65 [...] on: 08/10/2021 10:00 EST] Rony Ordonez MD [facility] Anesthesia Note Patient: SUSAN RENE Age: 65 years Sex: FEMALE : 1955 Associated Diagnoses: None Author: Rony Ordonez MD Preoperative Information Anesthesia history: Patient history: No difficult intubation, No malignant hyperthermia. Family history: No malignant hyperthermia. Review of Systems Respiratory: recent COVID positive but no symptoms at present pulmonary payne, No shortness of breath, No apnea. 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 Hysterectomy (111133473). Social History Electronic Cigarette/Vaping Assessment Electronic Cigarette [...] % Auto Lymph % 24 % Auto [place] % 8 % Auto Eos % 3.3 % Auto Baso % 0.8 % Neut Abs# 3.1 x103/mcL Lymph Abs# 1.2 x103/mcL LOW [place] Abs# 0.4 x103/mcL Eos Abs# 0.2 x103/mcL Baso Abs# 0.0 x103/mcL Sodium Level 142.0 mmol/L Potassium Level 3.8 mmol/L Chloride Level 105 mmol/L CO2 25 mmol/L Anion Gap 16.0 mmol/L Glucose Level 74.0 mg/dL BUN 6 mg/dL LOW Creatinine Level 0.64 mg/dL BUN/Creat Ratio 9.0 eGFR AA >60 mL/min/1.73m2 NA eGFR Non A (more content not included)... Normal [facility] CBC w/ Auto Diffon 2 Erythrocyte distribution width (RBC) [Ratio] 18.0 % High 11.5-15.0 [facility] Comment on above: Performed By: #### 1 824116214, 5884297010, 4127010, 31973290, 7428286, 8347287572 ####[facility] (DEFAULT)[address] [place] [address] 11574 Hematocrit (Bld) [Volume fraction] 25.6 % Low 33.7-40.4 [facility] Comment on above: Performed By: #### 1 596513233, 0821316064, 3037866, 62478570, 5690081, 2334574709 ####[facility] (DEFAULT)[address] [place] [address] 72522 Hemoglobin (Bld) [Mass/Vol] 7.6 g/dL Low 11.3-15.9 [facility] Comment on above: Performed By: #### 1 233065757, 8269348034, 1110458, 70982077, 9100642, 4881207080 ####[facility] (DEFAULT)[address] [place] [address] 12113 Instr WBC 4.9 x10 Invalid Interpretation Code [facility] Comment on above: Performed By: #### 1 913842574, 6878477035, 3119266, 36817644, 7458187, 9922432208 ####[facility] (DEFAULT)[address] [place] [address] 78246 Man Diff? Auto Normal [facility] Comment on above: Performed By: #### 1 115082020, 4473993615, 8659964, 72304877, 2035818, 7580336349 ####[facility] (DEFAULT)[address] [place] [address] 26504 MCH (RBC) [Entitic mass] 28 pg Normal 24-34 [facility] Comment on above: Performed By: #### 1 503375712, 8621731964, 3812837, 76009603, 2304438, 7974728312 ####[facility] (DEFAULT)[address] [place] [address] MCHC (RBC) [Mass/Vol] 30 g/dL Normal 26-37 [facility] Comment on above: Performed By: #### 1 645303003, 8524773288, 7483323, 17562443, 9896468, 0363619168 ####[facility] (DEFAULT)[address] [place] [address] 01654 MCV (RBC) [Entitic vol] 93 fL Normal 81-100 [facility] Comment on above: Performed By: #### 1 411675432, 5737798499, 4089886, 97540154, 8516205, 4919405078 ####[facility] (DEFAULT)[address] [place] [address] 98063 Platelet 345 x10 Normal 138-427 [facility] Comment on above: Performed By: #### 1 645671995, 6662401428, 2209848, 70257581, 3366800, 3374054435 ####[facility] (DEFAULT)[address] [place] [address] 42306 Platelet mean volume (Bld) [Entitic vol] 9.3 fL Normal 6.3-10.2 [facility] Comment on above: Performed By: #### 1 554375532, 2682515794, 6372077, 36642310, 0996118, 3958159863 ####[facility] (DEFAULT)[address] [place] [address] 98645 RBC 2.74 x10 Low 3.70-5.30 [facility] Comment on above: Performed By: #### 1 153344336, 8593690149, 8784591, 62705178, 9778502, 2122997997 ####[facility] (DEFAULT)[address] [place] [address] WBC 4.9 x10 Normal 3.5-10.5 [facility] Comment on above: Performed By: #### 1 516614161, 3825886957, 2416876, 22241717, 3127803, 5087279781 ####[facility] (DEFAULT)[address] [place] [address] Standardon 08-10-2021 eGFR Non AA >60 Invalid Interpretation Code [facility] Comment on above: Performed By: #### 1 131803195, 5582066756, 5058057, 65635059, 3280870, 9138343652 ####[facility] (DEFAULT)[address] [place] [address] eGFR AA >60 Invalid Interpretation Code [facility] Comment on above: Result Comment: [employer] juanito Kidney disease could be indicated at eGFRs of less than 60 ml/min/1.73m2. Kidney Failure is indicated at less than 15 ml/min/1.73m2 Performed By: #### 1 483221525, 8066492976, 9168139, 15628209, 6937858, 4122174228 ####[facility] (DEFAULT)[address] [place] [address] 59888 Albumin [Mass/Vol] 3.3 g/dL Low 3.5-5.0 [facility] Comment on above: Performed By: #### 1 450450029, 3073837739, 6842298, 57128867, 5827346, 6756917953 ####[facility] (DEFAULT)[address] [place] [address] Albumin/Globulin [Mass ratio] 2.4 {ratio} Normal 1.4-2.6 [facility] Comment on above: Performed By: #### 1 830097916, 6435929829, 3904787, 99869944, 3869267, 4683470131 ####[facility] (DEFAULT)[address] [place] [address] Alk Phos 27 IU/L Low 32-91 [facility] Comment on above: Performed By: #### 1 301766820, 6079063069, 2321322, 75620840, 3874978, 1335289437 ####[facility] (DEFAULT)[address] [place] [address] ALT [Catalytic activity/Vol] 14.0 U/L Normal 14.0-54.0 [facility] Comment on above: Performed By: #### 1 997239791, 9712173794, 2804190, 86224307, 9847244, 0911299928 ####[facility] (DEFAULT)[address] [place] [address] Anion gap [Moles/Vol] 16.0 mmol/L Normal 5.0-19.0 [facility] Comment on above: Performed By: #### 1 875018618, 3610912599, 6759999, 16630326, 4616613, 0575972250 ####[facility] (DEFAULT)[address] [place] [address] AST [Catalytic activity/Vol] 23 U/L Normal 15-41 [facility] Comment on above: Performed By: #### 1 757870822, 9377053491, 7248591, 54588440, 9425246, 5739009351 ####[facility] (DEFAULT)[address] [place] [address] Bili Total 0.3 mg/dL Normal 0.3-1.2 [facility] Comment on above: Performed By: #### 1 412247256, 9167074565, 8715234, 71386859, 2567269, 7630856235 ####[facility] (DEFAULT)[address] [place] [address] 63554 Calcium [Mass/Vol] 6.4 mg/dL Low 8.9-10.3 [facility] Comment on above: Performed By: #### 1 647133588, 6923149571, 7183738, 49170045, 3020938, 7040371590 ####[facility] (DEFAULT)[address] [place] [address] 94745 Chloride [Moles/Vol] 105 mmol/L Normal 101-111 [facility] Comment on above: Performed By: #### 1 815677638, 6971455037, 6117982, 99275413, 2705777, 0330397495 ####[facility] (DEFAULT)[address] [place] [address] 63606 CO2 [Moles/Vol] 25 mmol/L Normal 21-32 [facility] Comment on above: Performed By: #### 1 570365303, 7858525189, 6781336, 63316159, 8308169, 7617455830 ####[facility] (DEFAULT)[address] [place] [address] 33904 Creatinine [Mass/Vol] 0.64 mg/dL Normal 0.60-1.30 [facility] Comment on above: Performed By: #### 1 801177983, 8825084784, 7672884, 43523235, 6198923, 6806806550 ####[facility] (DEFAULT)[address] [place] [address] 57665 Globulin (S) [Mass/Vol] 1.4 g/dL Low 1.5-4.3 [facility] Comment on above: Performed By: #### 1 255478853, 3514580029, 2845315, 91150161, 4722266, 9253866044 ####[facility] (DEFAULT)[address] [place] [address] 99282 Glucose [Mass/Vol] 74.0 mg/dL Normal 74.0-118.0 [facility] Comment on above: Performed By: #### 1 429449693, 2679560144, 0017470, 33051104, 5699079, 3116610594 ####[facility] (DEFAULT)[address] [place] [address] 31541 Osmolality 279 mOsm/L Invalid Interpretation Code [facility] Comment on above: Performed By: #### 1 408985936, 8268044829, 7732550, 12872522, 4953176, 5625993777 ####[facility] (DEFAULT)[address] [place] [address] 02676 Potassium [Moles/Vol] 3.8 mmol/L Normal 3.6-5.1 [facility] Comment on above: Performed By: #### 1 349914031, 3206978148, 5063189, 71381776, 1177180, 1217328218 ####[facility] (DEFAULT)[address] [place] [address] 96046 Protein [Mass/Vol] 4.7 g/dL Low 6.5-8.1 [facility] Comment on above: Performed By: #### 1 960961450, 5914801601, 6484066, 67562055, 6856759, 1968386108 ####[facility] (DEFAULT)[address] [place] [address] 62598 Sodium [Moles/Vol] 142.0 mmol/L Normal 136.0-144.0 [facility] Comment on above: Performed By: #### 1 991609623, 3803647438, 5032028, 22668609, 5116376, 1242004935 ####[facility] (DEFAULT)[address] [place] [address] 51460 Urea nitrogen [Mass/Vol] 6 mg/dL Low 8-26 [facility] Comment on above: Performed By: #### 1 414113739, 3123349627, 7979583, 27334867, 8950788, 9788089108 ####[facility] (DEFAULT)[address] [place] [address] 56137 Urea nitrogen/Creatinin e [Mass ratio] 9.0 mg/mg Normal 4.6-16.2 [facility] Comment on above: Performed By: #### 1 525185026, 7706412688, 5843316, 04472423, 7505770, 0953826543 ####[facility] (DEFAULT)[address] [place] [address] 52437 Extra Greyon 08-10-2021 Tube Collected Yes Invalid Interpretation Code [facility] Comment on above: Performed By: #### 2 784978227, 43690887 ####[facility] (DEFAULT)[address] [place] [address] 40579 Extra Redon 08-10-2021 Tube Collected Yes Invalid Interpretation Code [facility] Comment on above: Performed By: #### 1 559282983, 1593988773, 4894748, 41626651, 0431438, 1174891399 ####[facility] (DEFAULT)[address] [place] [address] 01097 MAGR Intraoperative Recordon 08-10-2021 MAGR Intraoperative Record MAGR Intra-Op Record Summary Primary Physician: Noe Reed MD Finalized Date/Time: 08/10/21 10:21:22 Pt. Name: RENEASHVIN /Sex: 1955 FEMALE Med Rec #: [id number] Physician: Norman Hughes MD Financial #: [id number] Pt. Type: I Room/Bed: [facility] Admit/Disch: 08/06/21 17:10:50 - Institution: Case [...] Role Performed Surgeon - Primary Anesthesiologist of Cell Geneticist Record Time In 08/10/21 09:00:00 08/10/21 09:00:00 08/10/21 09:00:00 Time Out 08/10/21 10:01:00 08/10/21 10:01:00 08/10/21 10:01:00 Procedure Esophagogastroduodenosco Esophagogastroduodenosco Esophagogastroduodenosco py and Colonosco py and Colonosco py and Colonosco Last Modified By: Helena Sandoval 08/10/21 Helena Sandoval 08/10/21 Helena Sandoval 08/10/21 10:19:10 10:19:10 10:19:10 Entry 4 Entry 5 Case Attendee Mandy Predomo RN, Regina CST Role Performed Cell Geneticist Scrub Personnel Time In 08/10/21 09:00:00 08/10/21 [...] injury r (more content not included)... Normal [facility] Magnesiumon 08-10-2021 Magnesium [Mass/Vol] 1.50 mg/dL Low 1.80-2.50 [facility] Comment on above: Performed By: #### 1 [id number], 0578107954, 5230033, 68300091, 0356600, 9270199971 ####[facility] (DEFAULT)[address] [place] [address] Nutrition Noteon 08-10-2021 Nutrition Note No new wts, Per inta ke records, Pt intake ranging 25-100%, eating better for lunch. Pt also taking supplements well. These appear to have been discontinued for scheduled colonscopy/EGD this am and not resumed. Per MD notes, tests unremarkable. With improving intake avg >/+ 50% of most meals, will hold off from re-adding Ensure. Will continue to monitor. [facility] Progress Note - Nurseon 07-15 Progress Note - Nurse pt returns from recovery. alert and drowsy. iv intact. pt able to tolerate water with no issues. denies pain. report received from holly perdomo RN. will continue to monitor. [Electronically Signed on: 08/10/2021 11:35 EST] Joslyn Roth RN [Verified on: 08/10/2021 11:35 EST] Joslyn Roth RN [facility] Telemetry Stripson 2 Telemetry Strips [id number]#1.00OTGTIFF [facility] Telemetry Strips [id number]#1.00OTGTIFF [facility] .Auto Diff 1on 08-09-2021 Auto [place] % 10 % Normal 07-25 [facility] Comment on above: Performed By: #### 2 353186, 5811309081, 2304050, 84378592 ####[facility] (DEFAULT)[address] [place] [address] 95854 Baso Abs# 0.0 x10 Normal 0.0-0.2 [facility] Comment on above: Performed By: #### 2 705493, 3706148909, 5618182, 86234150 ####[facility] (DEFAULT)[address] [place] [address] 11699 Basophils/100 WBC (Bld) 0.6 % Normal 0.2-2.0 [facility] Comment on above: Performed By: #### 2 086699, 5533765265, 0197987, 28014358 ####[facility] (DEFAULT)[address] [place] [address] 77917 Eos Abs# 0.2 x10 Normal 0.0-0.4 [facility] Comment on above: Performed By: #### 2 512989, 4344737336, 5425254, 94425708 ####[facility] (DEFAULT)[address] [place] [address] 03379 Eosinophils/100 WBC (Bld) 3.3 % Normal 0.9-4.0 [facility] Comment on above: Performed By: #### 2 906478, 8086557395, 8812104, 73891248 ####[facility] (DEFAULT)[address] [place] [address] 87206 Lymph Abs# 1.2 x10 Low 1.3-2.9 [facility] Comment on above: Performed By: #### 2 588373, 6852951598, 1986489, 27063113 ####[facility] (DEFAULT)[address] [place] [address] 87816 Lymphocytes/100 WBC (Bld) 21 % Normal 14-48 [facility] Comment on above: Performed By: #### 2 336530, 6943365685, 3573142, 99880783 ####[facility] (DEFAULT)[address] [place] [address] 50669 [place] Abs# 0.5 x10 Normal 0.0-0.8 [facility] Comment on above: Performed By: #### 2 806920, 9481233234, 0813221, 96647092 ####[facility] (DEFAULT)[address] [place] [address] 19572 Neut Abs# 3.6 x10 Normal 1.5-9.2 [facility] Comment on above: Performed By: #### 2 627237, 3777012547, 0147009, 70792883 ####[facility] (DEFAULT)[address] [place] [address] Neutrophils/100 WBC (Bld) 65 % Normal 44-88 [facility] Comment on above: Performed By: #### 2 179113, 0226365753, 0447102, 27957866 ####[facility] (DEFAULT)[address] [place] [address] Standardon 08-09-2021 eGFR Non AA >60 Invalid Interpretation Code [facility] Comment on above: Performed By: #### 2 904163, 6790739771, 8238650, 63185956 ####[facility] (DEFAULT)[address] [place] [address] eGFR AA >60 Invalid Interpretation Code [facility] Comment on above: Result Comment: [employer] juanito Kidney disease could be indicated at eGFRs of less than 60 ml/min/1.73m2. Kidney Failure is indicated at less than 15 ml/min/1.73m2 Performed By: #### 2 [id number], [id number], [id number], [id number] ####[facility] (DEFAULT)[address] [place] [address] Anion gap [Moles/Vol] 16.0 mmol/L Normal 5.0-19.0 [facility] Comment on above: Performed By: #### 2 [id number], [id number] ####[facility] (DEFAULT)[address] [place] [address] Calcium [Mass/Vol] 6.2 mg/dL Low 8.9-10.3 [facility] Comment on above: Performed By: #### 2 [id number], [id number], [id number], [id number] ####[facility] (DEFAULT)[address] [place] [id number] Chloride [Moles/Vol] 107 mmol/L Normal 101-111 [facility] Comment on above: Performed By: #### 2 [id number], [id number], [id number] ####[facility] (DEFAULT)[address] [place] [id number] CO2 [Moles/Vol] 24 mmol/L Normal 21-32 [facility] Comment on above: Performed By: #### 2 [id number], [id number], [id number], [id number] ####[facility] (DEFAULT)[address] [place] [address] Creatinine [Mass/Vol] 0.72 mg/dL Normal 0.60-1.30 [facility] Comment on above: Performed By: #### 2 [id number], [id number], [id number], [id number] ####[facility] (DEFAULT)[address] [place] [address] Glucose [Mass/Vol] 79.0 mg/dL Normal 74.0-118.0 [facility] Comment on above: Performed By: #### 2 316279, [id number], 0130219, 64663900 ####[facility] (DEFAULT)[address] [place] [address] 09239 Osmolality 282 mOsm/L Invalid Interpretation Code [facility] Comment on above: Performed By: #### 2 028229, [id number], 9848711, 72266939 ####[facility] (DEFAULT)[address] [place] [address] 12328 Potassium [Moles/Vol] 3.9 mmol/L Normal 3.6-5.1 [facility] Comment on above: Performed By: #### 2 384461, 7582777475, 1790642, 38429233 ####[facility] (DEFAULT)[address] [place] [address] 20356 Sodium [Moles/Vol] 143.0 mmol/L Normal 136.0-144.0 [facility] Comment on above: Performed By: #### 2 530460, 7953217963, 0827316, 51160422 ####[facility] (DEFAULT)[address] [place] [address] Urea nitrogen [Mass/Vol] 8 mg/dL Normal 8-26 [facility] Comment on above: Performed By: #### 2 448380, [id number], 8952508, 39741413 ####[facility] (DEFAULT)[address] [place] [address] 90340 Urea nitrogen/Creatinin e [Mass ratio] 11.0 mg/mg Normal 4.6-16.2 [facility] Comment on above: Performed By: #### 2 795726, 0496486354, 0438357, 26859936 ####[facility] (DEFAULT)[address] [place] [address] CBC w/ Auto Diffon Erythrocyte distribution width (RBC) [Ratio] 17.9 % High 11.5-15.0 [facility] Comment on above: Performed By: #### 2 247163, [id number], 4108392, 75899618 ####[facility] (DEFAULT)[address] [place] [address] 06107 Hematocrit (Bld) [Volume fraction] 24.1 % Low 33.7-40.4 [facility] Comment on above: Performed By: #### 2 842860, [id number], 8800106, 34604865 ####[facility] (DEFAULT)[address] [place] [address] Hemoglobin (Bld) [Mass/Vol] 7.2 g/dL Low 11.3-15.9 [facility] Comment on above: Result Comment: RIGO barrientos, pt received 1 unit on 08/06/21 Performed By: #### 2 746288, 3740803249, 4826690, 33142133 ####[facility] (DEFAULT)[address] [place] [address] Instr WBC 5.4 x10 Invalid Interpretation Code [facility] Comment on above: Performed By: #### 2 311154, [id number], 2736928, 20242476 ####[facility] (DEFAULT)[address] [place] [address] Man Diff? Auto Normal [facility] Comment on above: Performed By: #### 2 734481, 6452996446, 7847027, 89099680 ####[facility] (DEFAULT)[address] [place] [address] 17097 MCH (RBC) [Entitic mass] 28 pg Normal 24-34 [facility] Comment on above: Performed By: #### 2 173971, 6017972393, 1561091, 07052143 ####[facility] (DEFAULT)[address] [place] [address] 57174 MCHC (RBC) [Mass/Vol] 30 g/dL Normal 26-37 [facility] Comment on above: Performed By: #### 2 577559, 4609675592, 0258055, 40689747 ####[facility] (DEFAULT)[address] [place] [address] MCV (RBC) [Entitic vol] 94 fL Normal 81-100 [facility] Comment on above: Performed By: #### 2 224215, 1373240749, 4299208, 05049984 ####[facility] (DEFAULT)[address] [place] [address] Platelet 336 x10 Normal 138-427 [facility] Comment on above: Performed By: #### 2 381628, 6936821876, 2774159, 92960759 ####[facility] (DEFAULT)[address] [place] [address] Platelet mean volume (Bld) [Entitic vol] 9.5 fL Normal 6.3-10.2 [facility] Comment on above: Performed By: #### 2 538400, 9332799877, 8950306, 39453539 ####[facility] (DEFAULT)[address] [place] [address] RBC 2.57 x10 Low 3.70-5.30 [facility] Comment on above: Performed By: #### 2 553191, 2509690738, 4493132, 41591627 ####[facility] (DEFAULT)[address] [place] [address] 25659 WBC 5.4 x10 Normal 3.5-10.5 [facility] Comment on above: Performed By: #### 2 036650, 1335780355, 1210196, 84502935 ####[facility] (DEFAULT)[address] [place] [address] 77146 Cortisol LCon 08-09-2021 Cortisol LC 15.5 ug/dL Invalid Interpretation Code [facility] Comment on above: Result Comment: [place] isol AM 6.2 - 19.4 Cortisol PM 2.3 - 11.9 Performed At: [facility] [address] [id number] Brenna Iyer PhD Ph:[phone] Performed By: #### 7 194590, 22869963, 5308378, [id number] #### [facility] (DEFAULT) [address] [place] [address]37 Lab - AP Resultson 2 Lab - AP Results [id number]#1.00OTGTIFF Normal [facility] Magnesiumon 08-09-2021 Magnesium [Mass/Vol] 1.56 mg/dL Low 1.80-2.50 [facility] Comment on above: Performed By: #### 2 698498, 7625456528, 1668818, 01787304 ####[facility] (DEFAULT)[address] [place] [address] 02929 Telemetry Stripson 2 Telemetry Strips [id number]#1.00OTGTIFF Normal [facility] .Auto Diff 1on 08-08-2021 Auto [place] % 8 % Normal -12 [facility] Comment on above: Performed By: #### 7 386953, 52397138, 6287191, 6903672869 #### [facility] (DEFAULT) [address] [place] [address] 55230 Baso Abs# 0.0 x10 Normal 0.0-0.2 [facility] Comment on above: Performed By: #### 7 204726, 25500551, 1181517, 1594651765 #### [facility] (DEFAULT) [address] [place] [address] 36858 Basophils/100 WBC (Bld) 0.8 % Normal 0.2-2.0 [facility] Comment on above: Performed By: #### 7 140453, 09562160, 3508190, 2218396113 #### [facility] (DEFAULT) [address] [place] [address] 16794 Eos Abs# 0.2 x10 Normal 0.0-0.4 [facility] Comment on above: Performed By: #### 7 345033, 60210978, 3334191, 5524793166 #### [facility] (DEFAULT) [address] [place] [address] 86316 Eosinophils/100 WBC (Bld) 2.6 % Normal 0.9-4.0 [facility] Comment on above: Performed By: #### 7 313286, 91923775, 0073338, 7954022207 #### [facility] (DEFAULT) [address] [place] [address] 88319 Lymph Abs# 1.8 x10 Normal 1.3-2.9 [facility] Comment on above: Performed By: #### 7 387809, 46423854, 7667063, 6430357508 #### [facility] (DEFAULT) [address] [place] [address] 62646 Lymphocytes/100 WBC (Bld) 27 % Normal 14-48 [facility] Comment on above: Performed By: #### 7 258808, 06608629, 3288099, 4079812180 #### [facility] (DEFAULT) [address] [place] [address] 12778 [place] Abs# 0.5 x10 Normal 0.0-0.8 [facility] Comment on above: Performed By: #### 7 562936, 26321928, 8514874, 3670240308 #### [facility] (DEFAULT) [address] [place] [address] 70407 Neut Abs# 4.0 x10 Normal 1.5-9.2 [facility] Comment on above: Performed By: #### 7 741323, 32764079, 8468870, 4399943888 #### [facility] (DEFAULT) [address] [place] [address] Neutrophils/100 WBC (Bld) 62 % Normal 44-88 [facility] Comment on above: Performed By: #### 7 898836, 20396973, 6713951, 7059731311 #### [facility] (DEFAULT) [address] [place] [address] Ambulance Noteon 08-08-2021 Ambulance Note [id number]#1.00OTGTIFF Normal [facility] BMP Standardon 08-08-2021 eGFR Non AA >60 Invalid Interpretation Code [facility] Comment on above: Performed By: #### 7 256289, 50583298, 5251504, [id number] #### [facility] (DEFAULT) [address] [place] [address] eGFR AA >60 Invalid Interpretation Code [facility] Comment on above: Result Comment: [employer]man juanito Kidney disease could be indicated at eGFRs of less than 60 ml/min/1.73m2. Kidney Failure is indicated at less than 15 ml/min/1.73m2 Performed By: #### 7 983307, 06754425, 0005858, 8570878626 #### [facility] (DEFAULT) [address] [place] [address] 67575 Anion gap [Moles/Vol] 15.0 mmol/L Normal 5.0-19.0 [facility] Comment on above: Performed By: #### 7 607922, 91018160, 7005822, 7597630324 #### [facility] (DEFAULT) [address] [place] [address] 90011 Calcium [Mass/Vol] 5.9 mg/dL Critically abnormal 8.9-10.3 [facility] Comment on above: Result Comment: Crit ical CALC 5.9 result called and read back ok to: DEMETRA DAS RN 2S at: 05:25:23 08/08/2021 by: SYBIL Performed By: #### 7 069812, 05027787, 1308956, 7351823073 #### [facility] (DEFAULT) [address] [place] [address] 12663 Chloride [Moles/Vol] 109 mmol/L Normal 101-111 [facility] Comment on above: Performed By: #### 7 406714, 01544879, 6256899, 1718396465 #### [facility] (DEFAULT) [address] [place] [address] 26607 CO2 [Moles/Vol] 20 mmol/L Low 21-32 [facility] Comment on above: Performed By: #### 7 405956, 76796411, 0132380, 0583380943 #### [facility] (DEFAULT) [address] [place] [address] 29331 Creatinine [Mass/Vol] 0.68 mg/dL Normal 0.60-1.30 [facility] Comment on above: Performed By: #### 7 835321, 64952530, 4631038, 2801142163 #### [facility] (DEFAULT) [address] [place] [address] 53567 Glucose [Mass/Vol] 82.0 mg/dL Normal 74.0-118.0 [facility] Comment on above: Performed By: #### 7 543240, 07137681, 3469032, 1166731017 #### [facility] (DEFAULT) [address] [place] [address] 49012 Osmolality 277 mOsm/L Invalid Interpretation Code [facility] Comment on above: Performed By: #### 7 230795, 73096316, 9325083, 3967595034 #### [facility] (DEFAULT) [address] [place] [address] 16985 Potassium [Moles/Vol] 3.6 mmol/L Normal 3.6-5.1 [facility] Comment on above: Performed By: #### 7 807560, 78223824, 9643165, 2845884767 #### [facility] (DEFAULT) [address] [place] [address] 79439 Sodium [Moles/Vol] 140.0 mmol/L Normal 136.0-144.0 [facility] Comment on above: Performed By: #### 7 222977, 91358928, 5740133, 6747447460 #### [facility] (DEFAULT) [address] [place] [address] 64427 Urea nitrogen [Mass/Vol] 9 mg/dL Normal 8- [facility] Comment on above: Performed By: #### 7 027264, 71905029, 8363873, 0803448974 #### [facility] (DEFAULT) [address] [place] [address] Urea nitrogen/Creatinin e [Mass ratio] 13.0 mg/mg Normal 4.6-16.2 [facility] Comment on above: Performed By: #### 7 689245, 90815684, 1093302, 5196645130 #### [facility] (DEFAULT) [address] [place] [address] CBC w/ Auto Diffon Erythrocyte distribution width (RBC) [Ratio] 18.4 % High 11.5-15.0 [facility] Comment on above: Performed By: #### 1 109849686, 4863637, 60200616, 5060773 #### [facility] (DEFAULT) [address] [place] [address] Hematocrit (Bld) [Volume fraction] 31.6 % Low 33.7-40.4 [facility] Comment on above: Performed By: #### 1 661742445, 4576488, 05816094, 9746754 #### [facility] (DEFAULT) [address] [place] [address] 02019 Hemoglobin (Bld) [Mass/Vol] 9.6 g/dL Low 11.3-15.9 [facility] Comment on above: Performed By: #### 1 325058249, 4961223, 72731533, 8785719 #### [facility] (DEFAULT) [address] [place] [address] Instr WBC 6.5 x10 Invalid Interpretation Code [facility] Comment on above: Performed By: #### 1 854381782, 4718414, 87551384, 8371746 #### [facility] (DEFAULT) [address] [place] [address] Man Diff? Auto Normal [facility] Comment on above: Performed By: #### 1 477343509, 5857831, 15248399, 3241397 #### [facility] (DEFAULT) [address] [place] [address] 29439 MCH (RBC) [Entitic mass] 28 pg Normal 24-34 [facility] Comment on above: Performed By: #### 1 606341164, 3018302, 68451350, 1448801 #### [facility] (DEFAULT) [address] [place] [address] 43348 MCHC (RBC) [Mass/Vol] 30 g/dL Normal 26-37 [facility] Comment on above: Performed By: #### 1 874544410, 7842905, 74363783, 4877384 #### [facility] (DEFAULT) [address] [place] [address] 04079 MCV (RBC) [Entitic vol] 92 fL Normal 81-100 [facility] Comment on above: Performed By: #### 1 971745136, 9807313, 30954770, 3038129 #### [facility] (DEFAULT) [address] [place] [address] 59880 Platelet 450 x10 High 138-427 [facility] Comment on above: Performed By: #### 1 471790391, 8900072, 98939790, 1874369 #### [facility] (DEFAULT) [address] [place] [address] 70288 Platelet mean volume (Bld) [Entitic vol] 9.4 fL Normal 6.3-10.2 [facility] Comment on above: Performed By: #### 1 177481372, 0927383, 08752185, 0209905 #### [facility] (DEFAULT) [address] [place] [address] 55479 RBC 3.45 x10 Low 3.70-5.30 [facility] Comment on above: Performed By: #### 1 452692720, 3351988, 39632649, 3065575 #### [facility] (DEFAULT) [address] [place] [address] 42867 WBC 6.5 x10 Normal 3.5-10.5 [facility] Comment on above: Performed By: #### 1 287200143, 7901727, 76923726, 6912149 #### [facility] (DEFAULT) [address] [place] [address] 52201 CRPon 08-08-2021 CRP 0.6 mg/dL High <=0.5 [facility] Comment on above: Performed By: #### 7 374808, 24628606, 3711072, 0260222255 #### [facility] (DEFAULT) [address] [place] [address] 14680 Haptoglobin LCon 08-08-2021 Haptoglobin LC 162 mg/dL Invalid Interpretation Code 39-919 [facility] Comment on above: Result Comment: Perf ormed At: [facility] [address] [id number] Brenna Iyer PhD Ph:[phone] Performed By: #### 1 919478625, 4242001, 52308341, 1749940 #### [facility] (DEFAULT) [address] [place] [address] 54430 Magnesiumon 08-08-2021 Magnesium [Mass/Vol] 1.47 mg/dL Low 1.80-2.50 [facility] Comment on above: Performed By: #### 7 535506, 93359334, 1850617, 8457754609 #### [facility] (DEFAULT) [address] [place] [address] 44992 Nutrition Noteon 08-08-2021 SARS-CoV-2 (COVID-19) RNA JESSICA+probe [...] Ensure Compact BIDWM and monitor acceptance. Normal [facility] Telemetry Stripson Telemetry Strips [id number]#1.00OTGTIFF Normal [facility] .Auto Diff 1on 08-07-2021 Auto [place] % 8 % Normal -12 [facility] Comment on above: Performed By: #### 1 345728781, 6009935, 83027423, 1424709 #### [facility] (DEFAULT) [address] [place] [address] 50340 Baso Abs# 0.0 x10 Normal 0.0-0.2 [facility] Comment on above: Performed By: #### 1 142372376, 1510979, 53439369, 4710222 #### [facility] (DEFAULT) [address] [place] [address] 63991 Basophils/100 WBC (Bld) 0.6 % Normal 0.2-2.0 [facility] Comment on above: Performed By: #### 1 962388379, 6244276, 01276086, 1643213 #### [facility] (DEFAULT) [address] [place] [address] 17794 Eos Abs# 0.1 x10 Normal 0.0-0.4 [facility] Comment on above: Performed By: #### 1 877601533, 8694021, 40521396, 4980050 #### [facility] (DEFAULT) [address] [place] [address] 87262 Eosinophils/100 WBC (Bld) 1.3 % Normal 0.9-4.0 [facility] Comment on above: Performed By: #### 1 699597001, 8402568, 37477708, 9794724 #### [facility] (DEFAULT) [address] [place] [address] 87264 Lymph Abs# 1.6 x10 Normal 1.3-2.9 [facility] Comment on above: Performed By: #### 1 127120771, 5132160, 94875055, 0167835 #### [facility] (DEFAULT) [address] [place] [address] Lymphocytes/100 WBC (Bld) 24 % Normal 14-48 [facility] Comment on above: Performed By: #### 1 634090675, 9653216, 78496914, 8502892 #### [facility] (DEFAULT) [address] [place] [address] [place] Abs# 0.6 x10 Normal 0.0-0.8 [facility] Comment on above: Performed By: #### 1 594084136, 9185729, 01511261, 7040575 #### [facility] (DEFAULT) [address] [place] [address] Neut Abs# 4.4 x10 Normal 1.5-9.2 [facility] Comment on above: Performed By: #### 1 618981819, 2082331, 93603202, 9983010 #### [facility] (DEFAULT) [address] [place] [address] Neutrophils/100 WBC (Bld) 65 % Normal 44-88 [facility] Comment on above: Performed By: #### 1 182110055, 2353550, 94644491, 2862033 #### [facility] (DEFAULT) [address] [place] [address] CBC w/ Auto Diffon 2 Erythrocyte distribution width (RBC) [Ratio] 18.4 % High 11.5-15.0 [facility] Comment on above: Performed By: #### 1 846232932, 0571930, 01033784, 4322371 #### [facility] (DEFAULT) [address] [place] [address] Hematocrit (Bld) [Volume fraction] 33.1 % Low 33.7-40.4 [facility] Comment on above: Performed By: #### 1 189766898, 6873711, 10508489, 9631304 #### [facility] (DEFAULT) [address] [place] [address] 02566 Hemoglobin (Bld) [Mass/Vol] 9.9 g/dL Low 11.3-15.9 [facility] Comment on above: Result Comment: Charo ent received 1 unit of PRBC's on 08/06/21 Performed By: #### 1 638127196, 8031085, 40017106, 4822470 #### [facility] (DEFAULT) [address] [place] [address] 50636 Instr WBC 6.7 x10 Invalid Interpretation Code [facility] Comment on above: Performed By: #### 1 961783901, 6273219, 60827896, 5203825 #### [facility] (DEFAULT) [address] [place] [address] 17090 Man Diff? Auto Normal [facility] Comment on above: Performed By: #### 1 375149443, 2436403, 44517162, 0268457 #### [facility] (DEFAULT) [address] [place] [address] 78117 MCH (RBC) [Entitic mass] 28 pg Normal 24-34 [facility] Comment on above: Performed By: #### 1 365738780, 6375027, 47474667, 4623034 #### [facility] (DEFAULT) [address] [place] [address] 29580 MCHC (RBC) [Mass/Vol] 30 g/dL Normal 26-37 [facility] Comment on above: Performed By: #### 1 826156277, 1178727, 68091799, 1499026 #### [facility] (DEFAULT) [address] [place] [address] 58565 MCV (RBC) [Entitic vol] 92 fL Normal 81-100 [facility] Comment on above: Performed By: #### 1 930922309, 1765920, 21277645, 5490341 #### [facility] (DEFAULT) [address] [place] [address] 71510 Platelet 515 x10 High 138-427 [facility] Comment on above: Performed By: #### 1 120598517, 8142085, 52522133, 1054196 #### [facility] (DEFAULT) [address] [place] [address] Platelet mean volume (Bld) [Entitic vol] 9.0 fL Normal 6.3-10.2 [facility] Comment on above: Performed By: #### 1 788408411, 8569161, 69582395, 5275485 #### [facility] (DEFAULT) [address] [place] [address] 10586 RBC 3.60 x10 Low 3.70-5.30 [facility] Comment on above: Performed By: #### 1 164850835, 2079825, 68455769, 0320403 #### [facility] (DEFAULT) [address] [place] [address] 67166 WBC 6.7 x10 Normal 3.5-10.5 [facility] Comment on above: Performed By: #### 1 218443923, 4888068, 63490607, 4437856 #### [facility] (DEFAULT) [address] [place] [address] 95552 CMP Standardon 08-07-2021 Albumin [Mass/Vol] 1.6 g/dL Low 3.5-5.0 [facility] Comment on above: Order Comment: I [...] blood work. CJ Performed By: #### 1 585403826, 4799420, 26306879, 6785668 #### [facility] (DEFAULT) [address] [place] [address] 08230 Albumin/Globulin [Mass ratio] 0.7 {ratio} Low 1.4-2.6 [facility] Comment on above: Order Comment: I had [...] blood work. CJ Performed By: #### 1 326194045, 9893236, 62253603, 5947684 #### [facility] (DEFAULT) [address] [place] [address] 88182 Alk Phos 48 IU/L Normal 32-91 [facility] Comment on above: Order Comment: I had [...] blood work. CJ Performed By: #### 1 400753308, 7287398, 84569237, 6018384 #### [facility] (DEFAULT) [address] [place] [address] 42033 ALT [Catalytic activity/Vol] 21.0 U/L Normal 14.0-54.0 [facility] Comment on above: Order Comment: I had [...] blood work. CJ Performed By: #### 1 529968617, 3136219, 11461889, 3314964 #### [facility] (DEFAULT) [address] [place] [address] 30627 Anion gap [Moles/Vol] 14.0 mmol/L Normal 5.0-19.0 [facility] Comment on above: Order Comment: I had [...] blood work. CJ Performed By: #### 1 682261827, 6381118, 42767477, 5129464 #### [facility] (DEFAULT) [address] [place] [address] 42909 AST [Catalytic activity/Vol] 26 U/L Normal 15-41 [facility] Comment on above: Order Comment: I had [...] blood work. CJ Performed By: #### 1 251602619, 6482130, 35551456, 1136666 #### [facility] (DEFAULT) [address] [place] [address] 11125 Bili Total 0.2 mg/dL Low 0.3-1.2 [facility] Comment on above: Order Comment: I had [...] blood work. CJ Performed By: #### 1 175300167, 9399590, 61125293, 9285734 #### [facility] (DEFAULT) [address] [place] [address] 57171 Calcium [Mass/Vol] 5.9 mg/dL Critically abnormal 8.9-10.3 [facility] Comment on above: Order Comment: I had [...] 08/07/2021 09:25:59 EST. Performed By: #### 1 [id number], [id number] #### [facility] (DEFAULT) [address] [place] [address]3828 Chloride [Moles/Vol] 108 mmol/L Normal 101-111 [facility] Comment on above: Order Comment: I had [...] blood work. CJ Performed By: #### 1 [id number], [id number] #### [facility] (DEFAULT) [address] [place] [address] 80910 CO2 [Moles/Vol] 21 mmol/L Normal 21-32 [facility] Comment on above: Order Comment: I had [...] blood work. CJ Performed By: #### 1 [id number], [id number] #### [facility] (DEFAULT) [address] [place] [address]147 Creatinine [Mass/Vol] 0.61 mg/dL Normal 0.60-1.30 [facility] Comment on above: Order Comment: I had [...] blood work. CJ Performed By: #### 1 [id number], [id number], [id number] #### [facility] (DEFAULT) [address] [place] [address] 63749 Globulin (S) [Mass/Vol] 2.3 g/dL Normal 1.5-4.3 [facility] Comment on above: Order Comment: I had [...] blood work. CJ Performed By: #### 1 [id number], [id number] #### [facility] (DEFAULT) [address] [place] [address] 37593 Glucose [Mass/Vol] 79.0 mg/dL Normal 74.0-118.0 [facility] Comment on above: Order Comment: I [...] blood work. CJ Performed By: #### 1 [id number], [id number] #### [facility] (DEFAULT) [address] [place] [address] 81115 Osmolality 277 mOsm/L Invalid Interpretation Code [facility] Comment on above: Order Comment: I had [...] blood work. CJ Performed By: #### 1 [id number], [id number] #### [facility] (DEFAULT) [address] [place] [address] 67261 Potassium [Moles/Vol] 3.2 mmol/L Low 3.6-5.1 [facility] Comment on above: Order Comment: I had [...] IV T herapy Performed By: #### 1 [id number], 3635584, 30699445, [id number] #### [facility] (DEFAULT) [address] [place] [address] 07780 Protein [Mass/Vol] 3.9 g/dL Low 6.5-8.1 [facility] Comment on above: Order Comment: I [...] blood work. CJ Performed By: #### 1 [id number], 4318136, 06631099, 3129642 #### [facility] (DEFAULT) [address] [place] [address] 39341 Sodium [Moles/Vol] 140.0 mmol/L Normal 136.0-144.0 [facility] Comment on above: Order Comment: I [...] blood work. CJ Performed By: #### 1 [id number], 0896246, 41346314, 0014999 #### [facility] (DEFAULT) [address] [place] [address] 23324 Urea nitrogen [Mass/Vol] 8 mg/dL Normal 8-26 [facility] Comment on above: Order Comment: I had [...] blood work. CJ Performed By: #### 1 [id number], 4763312, 77714613, 7418843 #### [facility] (DEFAULT) [address] [place] [address] Urea nitrogen/Creatinin e [Mass ratio] 13.0 mg/mg Normal 4.6-16.2 [facility] Comment on above: Order Comment: I had [...] blood work. CJ Performed By: #### 1 [id number], 5955826, 21066502, 2456729 #### [facility] (DEFAULT) [address] [place] [address] eGFR Non AA >60 Invalid Interpretation Code [facility] Comment on above: Order Comment: I had [...] blood work. CJ Performed By: #### 1 [id number], 8705590, 22564975, 9916399 #### [facility] (DEFAULT) [address] [place] [address] eGFR AA >60 Invalid Interpretation Code [facility] Comment on above: Order Comment: I had [...] ALL 2am blood work. CJ Result Comment: Tower Foreman juanito Kidney disease could be indicated at eGFRs of less than 60 ml/min/1.73m2. Kidney Failure is indicated at less than 15 ml/min/1.73m2 Performed By: #### 1 [id number], 4302200, 11469500, 7758971 #### [facility] (DEFAULT) [address] [place] [address] Consent Formson 08-07-2021 Consent Forms [id number] Normal [facility] ED Clinical Summaryon 2021 ED Clinical Summary [facility] - Emergency Department [address] [place] [address] ED Clinical Summary PERSON INFORMATION Name: ASHVIN RENE Age: 65 Years Sex: FEMALE : 1955 MRN: Acct#: Visit Reason: General medical; ANEMIA, ELEVATED TROPONIN Arrival: 08/06/2021 17:10:50 Discharge: LOS: 000 05:17 Check In: 08/06/2021 17:10:50 Checkout:08/06/2021 22:27:57 Address: [address] [place] [address] PCP: TUSHAR SOLANO JR. PROVIDER INFORMATION Provider Role Assigned Unassigned Danni Souza ED PA 08/06/2021 17:12:50 08/06/2021 17:16:23 EVERTON NEGRON ED PA 08/06/2021 17:18:50 Jessica Al BUILDING CERTIFIER Nurse 08/06/2021 17:45:27 08/06/2021 19:14:08 Gely Adan BUILDING CERTIFIER Nurse 08/06/2021 19:14:09 VITALS INFORMATION Vital Sign [...] female presenting [facility] the emergency department [facility] for evaluation of low blood [...] not currently on diuretics secondary to her engraver signature stating that she should not take these. [...] -Pharynx is pink and dry NECK: -Supple ([id number]): non-tender. CARD: -Rate and rhythm: Regular -Edema: [...] was performed with patient's consent and nurse speaker wirer Jessica in the room the entire time -External rectal exam reveals no abnormalities -Digital rectal exam reveals no masses or polyps within reach of my finger, stool guaiac is positive Medical Decision Making 55-year-old female presenting to the emergency department for evaluation of low blood pressure taken manually at [facility] facility of 90/45 and possibility of looking mildly jaundiced. I discussed this with (more content not included)... Normal [facility] ED Patient Education Noteon 08-07-2021 ED Patient Education Note Education Materials [facility] ED Patient Summaryon 022 ED Patient Summary [facility] - Emergency Department [address] [place] [address] PATIENT DISCHARGE INSTRUCTIONS Patient Information Name: ASHVIN RENE Age: 65 Years Date of : 1955 Reason For Visit: General medical; ANEMIA, ELEVATED TROPONIN Arrival Time: 08/06/2021 17:10:50 Primary Care Physician: TUSHAR SOLANO JR. Attending Physician: Waqas Castro MD Comment: Visit Diagnosis: Diagnoses This Visit Anemia (D64.9) General medical ([id number]) GI bleed (K92.2) Peripheral edema (R60.9) Prescription Information: If you have been given a prescription for narcotics, seek immediate medical attention if you have any difficulty breathing or any sudden status changes such as confusion and sleepiness. If you or anyone you know is experiencing suicidal thoughts, mental health, alcohol and/or drug addiction problems; contact the [facility] 03/02 Crisis Hotline -Text 4HVQC to 100303. If you received any narcotics, sedation, or [...] and treatment you received today in the [facility] Emergency Department were for an urgent problem and are not intended as complete care. It is important for you to follow up with a doctor, nurse practitioner, or physician?s clerical assistant for ongoing care. If your symptoms [...] so we can reach you if necessary. [facility] Emergency Department has provided you with a [...] mg oral tablet) potassium chloride (Potassium Chloride (Dgd-Getg-Nae 10) 10 mEq oral tablet, extended release) [...] Weight Dosin. (more content not included)... Normal [facility] Ferritinon 08-07-2021 Ferritin [Mass/Vol] 14.2 ng/mL Normal 12.0-150.0 [facility] Comment on above: Performed By: #### 1 [id number], 7996017, 37143961, 6184555 #### [facility] (DEFAULT) [address] [place] [address] 92674 Folateon 08-07-2021 Folic Acid Level 6.62 ng/mL Normal 5.90-24.80 [facility] Comment on above: Result Comment: Norm al folate results > 3.0 ng/mL. Performed By: #### 1 [id number], 1926762, 28063990, 4176234 #### [facility] (DEFAULT) [address] [place] [address] Free T4on 08-07-2021 Free T4 [Mass/Vol] 1.30 ng/dL High 0.61-1.12 [facility] Comment on above: Result Comment: Spec imens that contain high levels of Biotin may cause false high results Performed By: #### 1 [id number], 5681865, 48984336, 3253477 #### [facility] (DEFAULT) [address] [place] [address] 23400 Iron Profileon 08-07-2021 Iron [Mass/Vol] 24.0 ug/dL Low 28.0-170.0 [facility] Comment on above: Performed By: #### 1 [id number], 3607279, 94019708, 4648476 #### [facility] (DEFAULT) [address] [place] [address] Iron Sat 15 % Low 20-55 [facility] Comment on above: Performed By: #### 1 [id number], 1917018, 35254420, 1239604 #### [facility] (DEFAULT) [address] [place] [address] TIBC 158 mcg/dL Low 250-400 [facility] Comment on above: Performed By: #### 1 [id number], 9875101, 15002744, 6421010 #### [facility] (DEFAULT) [address] [place] [address] Transferrin [Mass/Vol] 113.1 mg/dL Low 192.0-382.0 [facility] Comment on above: Performed By: #### 1 [id number], 1494135, 88206354, 5461816 #### [facility] (DEFAULT) [address] [place] [address] 24471 LDHon 08-07-2021 LDH 299.0 IU/L High 98.0-192.0 [facility] Comment on above: Performed By: #### 1 [id number], 2323176, 59360380, 6182706 #### [facility] (DEFAULT) [address] [place] [address] 74731 Magnesiumon 08-07-2021 Magnesium [Mass/Vol] 0.98 mg/dL Low 1.80-2.50 [facility] Comment on above: Performed By: #### 1 [id number], 6516736, 35985303, 8183898 #### [facility] (DEFAULT) [address] [place] [address] 68045 Occult Blood, Fecalon 2021 Internal QC OK? Pass Normal [facility] Comment on above: Performed By: #### 1 [id number], 5369143, 79417847, 7746144 #### [facility] (DEFAULT) [address] [place] [address] 50941 Occult Bld Stl Positive Abnormal Negative [facility] Comment on above: Performed By: #### 1 [id number], 2797415, 63482562, 0618546 #### [facility] (DEFAULT) [address] [place] [address] 17377 Path Reviewon 08-07-2021 Pathology Test See Report Normal [facility] Comment on above: Result Comment: Sepa rate report to follow. Sent to [facility] for Path Review Performed By: #### 1 [id number], 5502160, 90771071, 3995828 #### [facility] (DEFAULT) [address] [place] [address] 19063 Retic Counton 08-07-2021 Reticulocyte 2.8 % High 0.5-1.5 [facility] Comment on above: Performed By: #### 1 [id number], 6420414, 12081565, 8939737 #### [facility] (DEFAULT) [address] [place] [address] 69779 TSH w/ Reflex to FT4on 08-07 TSH Qn 16.54 m[IU]/L High 0.45-5.33 [facility] Comment on above: Result Comment: Gene ral Population (males and non- females, aged 21-88) 0.45 - 5.33 Females, 1st Trimester 0.05 - 3.70 Females, 2nd Trimester 0.31 - 4.35 Females, 3rd Trimester 0.41 - 5.18 Performed By: #### 1 [id number], 2188639, 88518079, 5132606 #### [facility] (DEFAULT) [address] [place] [address] Telemetry Stripson 2 Telemetry Strips [id number] Normal [facility] TnI HSon 08-07-2021 Troponin I High Sensitivity 16 pg/mL Critically abnormal <=15 [facility] Comment on above: Result Comment: Elev ated hsTnI 16 result called and read back ok to: SHILOH OBRIEN 2S at: 09:07:23 08/07/2021 by: TAPAN Male Baseline Delta 1Hr (Note pg/mL=ng/L) <20pg/mL 50-60% >20pg/mL 20% Female Baseline Delta 1Hr <15pg/mL 50-60% >15pg/mL 20% Other Baseline Delta 1Hr <18ng/mL 50-60% >18ng/mL 20% ([employer] Guidelines February 2018) Performed By: #### 1 [id number], 0289080, 92520901, 2148457 #### [facility] (DEFAULT) [address] [place] [address] Troponin I High Sensitivity 19 pg/mL Critically abnormal <=15 [facility] Comment on above: Result Comment: Elev ated hsTnI 19 result called and read back ok to: DEMETRA DAS RN 2S at: 02:25:36 08/07/2021 by: SYBIL Male Baseline Delta 1Hr (Note pg/mL=ng/L) <20pg/mL 50-60% >20pg/mL 20% Female Baseline Delta 1Hr <15pg/mL 50-60% >15pg/mL 20% Other Baseline Delta 1Hr <18ng/mL 50-60% >18ng/mL 20% ([employer] Guidelines February 2018) Performed By: #### 7 205092, 89147030, 0537413, [id number] #### [facility] (DEFAULT) [address] [place] [address] US Echocardiogram Completeon 08-07-2021 US Echocardiogram Complete [...] tricuspid regurgitation. Tim Harrington MD JOB #: [id number] bk Final Dictated by: Tim Harrington MD Dictated DT/TM: 08/08/21 8:50 Signed (Electronic Signature): Tim Harrington MD 08/09/21 8:25 am Normal [facility] Vit B12 Lvlon 08-07-2021 Vit B12 853 Normal 180-914 [facility] Comment on above: Performed By: #### 1 [id number], 7136201, 57807631, 4036677 #### [facility] (DEFAULT) [address] [place] [address] .Auto Diff 1on 08-06-2021 Auto [place] % 7 % Normal 1-12 [facility] Comment on above: Performed By: #### 7 271901, 13799384, 4336390, [id number] #### [facility] (DEFAULT) [address] [place] [address] Baso Abs# 0.0 x10 Normal 0.0-0.2 [facility] Comment on above: Performed By: #### 7 830806, 68413500, 5429336, 4075725504 #### [facility] (DEFAULT) [address] [place] [address] Basophils/100 WBC (Bld) 0.5 % Normal 0.2-2.0 [facility] Comment on above: Performed By: #### 7 993150, 35512522, 5068276, 2809229140 #### [facility] (DEFAULT) [address] [place] [address] Eos Abs# 0.0 x10 Normal 0.0-0.4 [facility] Comment on above: Performed By: #### 7 512238, 51607413, 2729749, [id number] #### [facility] (DEFAULT) [address] [place] [address] Eosinophils/100 WBC (Bld) 0.7 % Low 0.9-4.0 [facility] Comment on above: Performed By: #### 7 981162, 15488019, 6092754, 8754868850 #### [facility] (DEFAULT) [address] [place] [address] Lymph Abs# 1.2 x10 Low 1.3-2.9 [facility] Comment on above: Performed By: #### 7 210418, 16947060, 3341481, [id number] #### [facility] (DEFAULT) [address] [place] [address] Lymphocytes/100 WBC (Bld) 16 % Normal 14-48 [facility] Comment on above: Performed By: #### 7 068670, 77703060, 3992025, 7391818349 #### [facility] (DEFAULT) [address] [place] [address] 45713 [place] Abs# 0.5 x10 Normal 0.0-0.8 [facility] Comment on above: Performed By: #### 7 664727, 19682446, 0238357, 3303535583 #### [facility] (DEFAULT) [address] [place] [address] 82680 Neut Abs# 5.7 x10 Normal 1.5-9.2 [facility] Comment on above: Performed By: #### 7 913752, 68482703, 1209602, [id number] #### [facility] (DEFAULT) [address] [place] [address] Neutrophils/100 WBC (Bld) 76 % Normal 44-88 [facility] Comment on above: Performed By: #### 7 478167, 38530420, 1793493, [id number] #### [facility] (DEFAULT) [address] [place] [address] ABORhon 08-06-2021 ABO and Rh group Nom (Bld) Hx Check: Not Found Anti-A: 0 Anti-B: 0 Anti-D: 4+ DCon: 0 A1: 4+ B: 4+ ABORh Interp: O POS Invalid Interpretation Code [facility] Comment on above: Performed By: #### 7 587998, 63888707, 4147982, [id number] #### [facility] (DEFAULT) [address] [place] [address] 03483 ABORh Retypeon 08-06-2021 ABO and Rh group Nom (Bld) Ordered by Discern. Anti-A: 0 Anti-B: 0 Anti-D: 4+ DCon: 0 A1: 3+ B: 3+ ABORh Retype: O POS Invalid Interpretation Code [facility] Comment on above: Performed By: #### 7 458961, 44571921, 0759861, [id number] #### [facility] (DEFAULT) [address] [place] [address] 89295 ABSC Gelon 08-06-2021 ABSC Gel Negative Normal [facility] Comment on above: Performed By: #### 7 114314, 63919495, 1971844, [id number] #### [facility] (DEFAULT) [address] [place] [address] 52433 BNP.on 08-06-2021 Natriuretic peptide B (Bld) [Mass/Vol] 123.0 pg/mL High 0.0-100.0 [facility] Comment on above: Result Comment: BNP results greater than 100 pg/mL are considered abnormal and suggestive of patients with CHF. Higher BNP concentrations measured in the first 72 hours after an acute coronary syndorme are associated with an increased risk of , myocardial infarction, and CHF. Performed By: #### 7 755178, 47630291, 2646423, [id number] #### [facility] (DEFAULT) [address] [place] [address] Blood Bank IDon 08-06-2021 Blood Bank ID BBID: [id number] Invalid Interpretation Code [facility] Comment on above: Performed By: #### 7 964286, 35498124, 6759982, [id number] #### [facility] (DEFAULT) [address] [place] [address] CBC w/ Auto Diffon Erythrocyte distribution width (RBC) [Ratio] 19.4 % High 11.5-15.0 [facility] Comment on above: Performed By: #### 7 859641, 73305028, 5209115, [id number] #### [facility] (DEFAULT) [address] [place] [address] Hematocrit (Bld) [Volume fraction] 24.7 % Low 33.7-40.4 [facility] Comment on above: Performed By: #### 7 526612, 27031392, 4644236, [id number] #### [facility] (DEFAULT) [address] [place] [address] Hemoglobin (Bld) [Mass/Vol] 7.4 g/dL Low 11.3-15.9 [facility] Comment on above: Performed By: #### 7 463012, 24356906, 8786603, [id number] #### [facility] (DEFAULT) [address] [place] [address] Instr WBC 7.5 x10 Invalid Interpretation Code [facility] Comment on above: Performed By: #### 7 486258, 56638955, 8617439, [id number] #### [facility] (DEFAULT) [address] [place] [address] Man Diff? RBC Morph Only Normal [facility] Comment on above: Performed By: #### 7 283975, 82141345, 2186364, [id number] #### [facility] (DEFAULT) [address] [place] [address] MCH (RBC) [Entitic mass] 28 pg Normal 24-34 [facility] Comment on above: Performed By: #### 7 881793, 73493180, 7658491, 1364739708 #### [facility] (DEFAULT) [address] [place] [address] MCHC (RBC) [Mass/Vol] 30 g/dL Normal 26-37 [facility] Comment on above: Performed By: #### 7 955202, 99356967, 8347404, [id number] #### [facility] (DEFAULT) [address] [place] [address] MCV (RBC) [Entitic vol] 92 fL Normal 81-100 [facility] Comment on above: Performed By: #### 7 556601, 09107345, 5293786, [id number] #### [facility] (DEFAULT) [address] [place] [address] Platelet 533 x10 High 138-427 [facility] Comment on above: Performed By: #### 7 100632, 26921976, 3431784, 2278428055 #### [facility] (DEFAULT) [address] [place] [address] 98038 Platelet mean volume (Bld) [Entitic vol] 8.8 fL Normal 6.3-10.2 [facility] Comment on above: Performed By: #### 7 955481, 31395907, 7441597, 7329909010 #### [facility] (DEFAULT) [address] [place] [address] RBC 2.67 x10 Low 3.70-5.30 [facility] Comment on above: Performed By: #### 7 171191, 10979450, 9947422, 6877992088 #### [facility] (DEFAULT) [address] [place] [address] WBC 7.5 x10 Normal 3.5-10.5 [facility] Comment on above: Performed By: #### 7 508212, 07556293, 1096151, 4519845902 #### [facility] (DEFAULT) [address] [place] [address] Standardon 08-06-2021 eGFR Non AA >60 Invalid Interpretation Code [facility] Comment on above: Performed By: #### 7 060919, 99322452, 0323924, [id number] #### [facility] (DEFAULT) [address] [place] [address] eGFR AA >60 Invalid Interpretation Code [facility] Comment on above: Result Comment: Tower Foreman juanito Kidney disease could be indicated at eGFRs of less than 60 ml/min/1.73m2. Kidney Failure is indicated at less than 15 ml/min/1.73m2 Performed By: #### 7 187553, 59280201, 5873511, [id number] #### [facility] (DEFAULT) [address] [place] [address] Albumin [Mass/Vol] 1.6 g/dL Low 3.5-5.0 [facility] Comment on above: Performed By: #### 7 812081, 13888734, 5604744, 6772254083 #### [facility] (DEFAULT) [address] [place] [address] Albumin/Globulin [Mass ratio] 0.7 {ratio} Low 1.4-2.6 [facility] Comment on above: Performed By: #### 7 234375, 41938796, 0150208, [id number] #### [facility] (DEFAULT) [address] [place] [address] Alk Phos 52 IU/L Normal 32-91 [facility] Comment on above: Performed By: #### 7 057777, 20491211, 3281679, [id number] #### [facility] (DEFAULT) [address] [place] [address] 59221 ALT [Catalytic activity/Vol] 23.0 U/L Normal 14.0-54.0 [facility] Comment on above: Performed By: #### 7 181260, 83032484, 3702491, 1368598971 #### [facility] (DEFAULT) [address] [place] [address] 27198 Anion gap [Moles/Vol] 14.0 mmol/L Normal 5.0-19.0 [facility] Comment on above: Performed By: #### 7 766366, 48436734, 0021576, 7111875166 #### [facility] (DEFAULT) [address] [place] [address] 77421 AST [Catalytic activity/Vol] 27 U/L Normal 15-41 [facility] Comment on above: Performed By: #### 7 682318, 17191004, 9351622, 3538438252 #### [facility] (DEFAULT) [address] [place] [address] 10855 Bili Total 0.4 mg/dL Normal 0.3-1.2 [facility] Comment on above: Performed By: #### 7 128272, 89079780, 0423188, 6784850435 #### [facility] (DEFAULT) [address] [place] [address] 96774 Calcium [Mass/Vol] 6.1 mg/dL Low 8.9-10.3 [facility] Comment on above: Performed By: #### 7 083918, 59485433, 2769599, 0636526675 #### [facility] (DEFAULT) [address] [place] [address] 59670 Chloride [Moles/Vol] 108 mmol/L Normal 101-111 [facility] Comment on above: Performed By: #### 7 413341, 97331871, 2072601, 5817903640 #### [facility] (DEFAULT) [address] [place] [address] 93198 CO2 [Moles/Vol] 21 mmol/L Normal 21-32 [facility] Comment on above: Performed By: #### 7 111347, 50446024, 7002795, 7782050417 #### [facility] (DEFAULT) [address] [place] [address] 91234 Creatinine [Mass/Vol] 0.64 mg/dL Normal 0.60-1.30 [facility] Comment on above: Performed By: #### 7 106357, 41134915, 4515963, 2326225815 #### [facility] (DEFAULT) [address] [place] [address] 04805 Globulin (S) [Mass/Vol] 2.4 g/dL Normal 1.5-4.3 [facility] Comment on above: Performed By: #### 7 025008, 35204944, 7012759, 1147124853 #### [facility] (DEFAULT) [address] [place] [address] 22080 Glucose [Mass/Vol] 118.0 mg/dL Normal 74.0-118.0 [facility] Comment on above: Performed By: #### 7 386298, 40174190, 8015103, 2857887468 #### [facility] (DEFAULT) [address] [place] [address] 19405 Osmolality 277 mOsm/L Invalid Interpretation Code [facility] Comment on above: Performed By: #### 7 724983, 96348294, 1056168, [id number] #### [facility] (DEFAULT) [address] [place] [address] 25785 Potassium [Moles/Vol] 3.8 mmol/L Normal 3.6-5.1 [facility] Comment on above: Performed By: #### 7 976612, 60923002, 5446969, [id number] #### [facility] (DEFAULT) [address] [place] [address] 93817 Protein [Mass/Vol] 4.0 g/dL Low 6.5-8.1 [facility] Comment on above: Performed By: #### 7 372367, 37848935, 1420149, 9278477893 #### [facility] (DEFAULT) [address] [place] [address] 18771 Sodium [Moles/Vol] 139.0 mmol/L Normal 136.0-144.0 [facility] Comment on above: Performed By: #### 7 086729, 45296284, 0594931, [id number] #### [facility] (DEFAULT) [address] [place] [address] Urea nitrogen [Mass/Vol] 9 mg/dL Normal 8-26 [facility] Comment on above: Performed By: #### 7 698947, 92765335, 5462711, [id number] #### [facility] (DEFAULT) [address] [place] [address] Urea nitrogen/Creatinin e [Mass ratio] 14.0 mg/mg Normal 4.6-16.2 [facility] Comment on above: Performed By: #### 7 719869, 43764207, 2968510, [id number] #### [facility] (DEFAULT) [address] [place] [address] 33503 ED Note - Physicianon 2021 ED Note - Physician Patient: ASHVIN RENE Age: 65 years Sex: FEMALE : 1955 Associated Diagnoses: General medical; Anemia; Peripheral edema; GI bleed Author: EVERTON NEGRON Basic Information Time seen: Date & time 08/06/2021 17:19:00. History source: Patient, EMS. Arrival mode: Ambulance. History of Present Illness Patient is a 65-year-old female presenting [facility] the emergency department from [facility] for evaluation of low blood [...] not currently on diuretics secondary to her engraver signature stating that she should not take these. [...] -Pharynx is pink and dry NECK: -Supple (rnni-gz-[id number]): non-tender. CARD: -Rate and rhythm: Regular -Edema: [...] was performed with patient's consent and nurse speaker wirer Jessica in the room the entire time -External rectal exam reveals no abnormalities -Digital rectal exam reveals no masses or polyps within reach of my finger, stool guaiac is positive Medical Decision Making 55-year-old female presenting to the emergency department for evaluation of low blood pressure taken manually at [facility] of 90/45 and possibility of looking [...] at this time. According to paperwork from [facility] facility patient CODE STATUS is full code Results review: Lab results : Lab Flowsheet 08/06/2021 18:55 EST Troponin I High Sensitivity 21 pg/mL CRIT 08/06/2021 1 (more content not included)... Normal [facility] ED Note-Nursingon 08-06-2021 ED Note-Nursing patient did not want to come in. patient is from [place], patient has a history of hypotension and she takes midodrine regularly. she also took zofran. nurse states arms and legs are weeping. nurse states skin is yellow. patient has c diff. nurse at [facility] did a wrist bloodpressure and it was 90/44, ems did a blood pressure and it was 144/90. patient states longterm is not giving me my blood pressure meds Normal [facility] Extra Pinkon 08-06-2021 Tube Collected Yes Invalid Interpretation Code [facility] Comment on above: Performed By: #### 7 [id number], [id number], [id number], [id number] #### [facility] (DEFAULT) [address] [place] [address] Lactic Acidon 08-06-2021 Lactic Acid 16.2 mg/dL Normal 4.5-19.8 [facility] Comment on above: Performed By: #### 7 [id number], [id number], [id number], [id number] #### [facility] (DEFAULT) [address] [place] [address] Lipaseon 08-06-2021 Lipase Level 20.0 IU/L Low 22.0-51.0 [facility] Comment on above: Performed By: #### 7 [id number], [id number], [id number], [id number] #### [facility] (DEFAULT) [address] [place] [address] Magnesiumon 08-06-2021 Magnesium [Mass/Vol] 0.92 mg/dL Low 1.80-2.50 [facility] Comment on above: Performed By: #### 7 [id number], [id number], [id number], [id number] #### [facility] (DEFAULT) [address] [place] [address] Morphologyon 08-06-2021 Aniso 1+ Normal [facility] Comment on above: Order Comment: Order added by Discern. Performed By: #### 7 [id number], [id number], 8554260, [id number] #### [facility] (DEFAULT) [address] [place] [address] Hypochrom 1+ Normal [facility] Comment on above: Order Comment: Order added by Discern. Performed By: #### 7 [id number], [id number], [id number], [id number] #### [facility] (DEFAULT) [address] [place] [address] Microcyte 1+ Normal [facility] Comment on above: Order Comment: Order added by Discern. Performed By: #### 7 [id number], [id number], [id number], [id number] #### [facility] (DEFAULT) [address] [place] [address] RBC morphology finding Nom (Bld) See Morphology Normal [facility] Comment on above: Order Comment: Order added by Discern. Performed By: #### 7 [id number], [id number], 5003434, [id number] #### [facility] (DEFAULT) [address] [place] [address] RBC.on 08-06-2021 RBC. # of Units: 2 RBC Indication: Symptom Anemia Additional Units?: No Date Needed: 1/24/22 Red Cell Status: RBC Ready Normal [facility] Comment on above: Performed By: #### 1 [id number], [id number], [id number], [id number] #### [facility] (DEFAULT) [address] [place] [address] SARS-CoV-2 (COVID-19) PCRon 08-06-2021 Employed in healthcare? No Invalid Interpretation Code [facility] Comment on above: Performed By: #### 1 [id number], [id number], [id number], [id number] #### [facility] (DEFAULT) [address] [place] [address] Group care resident? Yes Invalid Interpretation Code [facility] Comment on above: Performed By: #### 1 [id number], [id number], [id number], [id number] #### [facility] (DEFAULT) [address] [place] [address] In ICU? Unknown Invalid Interpretation Code [facility] Comment on above: Performed By: #### 1 [id number], [id number], [id number], [id number] #### [facility] (DEFAULT) [address] [place] [address] status? Not Invalid Interpretation Code [facility] Comment on above: Performed By: #### 1 [id number], [id number], [id number], [id number] #### [facility] (DEFAULT) [address] [place] [address] SARS-CoV-2 (COVID-19) RNA JESSICA+probe Ql (Unsp spec) Detected Critically abnormal Not Detected [facility] Comment on above: Result Comment: Resu lts Called To MICAH Prince in ER By RR And Read Back For Confirmation On 08/06/2021 19:54:09 EST. Performed by PCR methodology. Performed By: #### 1 [id number], [id number], [id number], [id number] #### [facility] (DEFAULT) [address] [place] [address] SARS-CoV-2 (COVID-19) RNA JESSICA+probe Ql (Unsp spec) Unknown Invalid Interpretation Code [facility] Comment on above: Performed By: #### 1 [id number], [id number], [id number], [id number] #### [facility] (DEFAULT) [address] [place] [address] Symptomatic as defined by CDC? No Invalid Interpretation Code [facility] Comment on above: Performed By: #### 1 [id number], [id number], [id number], [id number] #### [facility] (DEFAULT) [address] [place] [address] TnI HSon 08-06-2021 Troponin I High Sensitivity 21 pg/mL Critically abnormal <=15 [facility] Comment on above: Result Comment: Elev ated hsTnI 21 result called and read back ok to: GELY OBRIEN ER at: 19:26:45 08/06/2021 by: RRUPPERT Male Baseline Delta 1Hr (Note pg/mL=ng/L) <20pg/mL 50-60% >20pg/mL 20% Female Baseline Delta 1Hr <15pg/mL 50-60% >15pg/mL 20% Other Baseline Delta 1Hr <18ng/mL 50-60% >18ng/mL 20% ([employer] Guidelines February 2018) Performed By: #### 7 [id number], [id number], 2160865, [id number] #### [facility] (DEFAULT) [address] [place] [address] Troponin I High Sensitivity 17 pg/mL Critically abnormal <=15 [facility] Comment on above: Result Comment: Elev ated hsTnI 17 result called and read back ok to: JESSICA AL RN IN ER at: 18:28:53 08/06/2021 by: RRUPPERT Male Baseline Delta 1Hr (Note pg/mL=ng/L) <20pg/mL 50-60% >20pg/mL 20% Female Baseline Delta 1Hr <15pg/mL 50-60% >15pg/mL 20% Other Baseline Delta 1Hr <18ng/mL 50-60% >18ng/mL 20% ([employer] Guidelines February 2018) Performed By: #### 7 [id number], [id number], [id number], [id number] #### [facility] (DEFAULT) [address] [place] [address] XR Chest 1 View Frontalon XR Chest [...] Gamez DO 08/06/21 8:49 pm Technologist: RANDALL [facility] KNEE RIGHT 3 Son KNEE RIGHT 3 [facility] Department of Radiology [address] [place] [phone] Patient Name: ASHVIN RENE : 1955 [...] change Electronically signed: Tawana Andrade. Transcribed by: [email or web address], User Resident: Electronically Signed by: TAWANA ANDRADE @ 01/01/2021 08:57 PM Normal [facility] Comment on above: Order Comment: Evalu ate Basic Metabolic Panlon 12-08 Anion gap [Moles/Vol] 13 mmol/L Normal 9-18 [facility] Comment on above: Performed By: #### B MP ####[address] [phone] Calcium [Mass/Vol] 7.1 mg/dL Low 8.5-10.2 [facility] Comment on above: Performed By: #### B MP ####[address] [phone] Chloride [Moles/Vol] 107 mmol/L High 97-105 [facility] Comment on above: Performed By: #### B MP ####[address] [phone] CO2 [Moles/Vol] 18 mmol/L Low 22-30 [facility] Comment on above: Performed By: #### B MP ####[address] [phone] Creatinine [Mass/Vol] 0.97 mg/dL High 0.58-0.96 [facility] Comment on above: Performed By: #### B MP ####[address] [phone] eGFR- Amer. >60 Normal [facility] Comment on above: Performed By: #### B MP ####[place] [address] [place], [place] [phone] eGFR-All Other Races 57 . Normal [facility] Comment on above: Result Comment: eGFR (Estimated [...] actual GFR. Performed By: #### B MP ####[address] [phone] Glucose [Mass/Vol] 79 mg/dL Normal 74-99 [facility] Comment on above: Result Comment: The [place] Diabetes Association (ADA) provides guidance for cutoff [...] Standards of Medical Care in Diabetes 2016, [place] Diabetes [employer]. Diabetes Care. 2016.39(Suppl 1). Performed By: #### B MP ####[facility] [place], [place] [phone] Potassium [Moles/Vol] 4.4 mmol/L Normal 3.7-5.1 [facility] Comment on above: Performed By: #### B MP ####[facility] [place], [place] [phone] Sodium [Moles/Vol] 138 mmol/L Normal 136-144 [facility] Comment on above: Performed By: #### B MP ####[place] [address] [place], [place] [phone] Urea nitrogen [Mass/Vol] 15 mg/dL Normal 7-21 [facility] Comment on above: Performed By: #### B MP ####[address] [phone] Coronavirus 2019on SARS-CoV-2 (COVID-19) RNA JESSICA+probe Ql (Unsp spec) Nasopharyngeal Swab Normal [facility] Comment on above: Performed By: #### C OVID ####[address] [phone] SARS-CoV-2 (COVID-19) RNA JESSICA+probe Ql (Unsp spec) Negative for COVID19 (SARS CoV2) by RT-PCR or equivalent method. Normal Negative for COVID19 (SARS CoV2) by RT-PCR or equivalent method. [facility] Comment on above: Result Comment: This test was developed and its performance characteristics determined by [facility] [place]. This test has been authorized by FDA under an Emergency Use Authorization (EUA). This test has been validated in accordance with the FDA's Guidance Document Policy for Diagnostics Testing in Laboratories Certified to Perform High Complexity Testing under CLIA prior to Emergency use Authorization for Coronavirus Disease 2019 during the Public Health Emergency issued on September 11, 2019. Test performed by [facility], [facility] [place], [address] [place], [place] [address]. Performed By: #### C OVID ####[address] [phone] CBCon 12-07-2020 Absolute nRBC <0.01 Normal <0.01 [facility] Comment on above: Performed By: #### C MP, CBC, PT ####[address] [phone] Erythrocyte distribution width (RBC) [Ratio] 15.1 % High 11.5-15.0 [facility] Comment on above: Performed By: #### C MP, CBC, PT ####[place] [address] [address], [place] [phone] Hematocrit (Bld) [Volume fraction] 33.1 % Low 36.0-46.0 [facility] Comment on above: Performed By: #### C MP, CBC, PT ####[place] [address] [address] [phone] Hemoglobin (Bld) [Mass/Vol] 10.0 g/dL Low 11.5-15.5 [facility] Comment on above: Performed By: #### C MP, CBC, PT ####[place] [address] [address] [phone] MCH 31.9 pG Normal 26.0-34.0 [facility] Comment on above: Performed By: #### C MP, CBC, PT ####[place] [address] [address] [phone] MCHC (RBC) [Mass/Vol] 30.2 g/dL Low 30.5-36.0 [facility] Comment on above: Performed By: #### C MP, CBC, PT ####[place] [address] [address] [phone] MCV (RBC) [Entitic vol] 105.8 fL High 80.0-100.0 [facility] Comment on above: Performed By: #### C MP, CBC, PT ####[place] [address] [address], [place] [phone] Platelet mean volume (Bld) [Entitic vol] 9.6 fL Normal 9.0-12.7 [facility] Comment on above: Performed By: #### C MP, CBC, PT ####[place] [address] [address] [phone] Platelets (Bld) [#/Vol] 256 10*3/uL Normal 150-400 [facility] Comment on above: Performed By: #### C MP, CBC, PT ####[place] [address] [place] [place], [place] [phone] RBC (Bld) [#/Vol] 3.13 10*6/uL Low 3.90-5.20 [facility] Comment on above: Performed By: #### C MP, CBC, PT ####[place] [address] [address] [place], [place] [phone] WBC (Bld) [#/Vol] 5.83 10*3/uL Normal 3.70-11.00 [facility] Comment on above: Performed By: #### C MP, CBC, PT ####[address] [phone] Comp Metabolic Panelon 12-07 Albumin [Mass/Vol] 3.1 g/dL Low 3.9-4.9 [facility] Comment on above: Performed By: #### C MP, CBC, PT ####[address] [phone] ALP [Catalytic activity/Vol] 34 U/L Normal 34-123 [facility] Comment on above: Performed By: #### C MP, CBC, PT ####[place] [address] [address] [place], [place] [phone] ALT [Catalytic activity/Vol] 16 U/L Normal 7-38 [facility] Comment on above: Performed By: #### C MP, CBC, PT ####[address] [place], [place] [phone] Anion gap [Moles/Vol] 8 mmol/L Low 9-18 [facility] Comment on above: Performed By: #### C MP, CBC, PT ####[address] [place], [place] [phone] AST [Catalytic activity/Vol] 16 U/L Normal 13-35 [facility] Comment on above: Performed By: #### C MP, CBC, PT ####[place] [address] [address], [place] [phone] Bilirubin [Mass/Vol] 0.2 mg/dL Normal 0.2-1.3 [facility] Comment on above: Performed By: #### C MP, CBC, PT ####[place] [address] [address] [place] [phone] Calcium [Mass/Vol] 8.4 mg/dL Low 8.5-10.2 [facility] Comment on above: Performed By: #### C MP, CBC, PT ####[place] [address] [address] [place], [place] [phone] Chloride [Moles/Vol] 111 mmol/L High 97-105 [facility] Comment on above: Performed By: #### C MP, CBC, PT ####[place] [address] [address] [phone] CO2 [Moles/Vol] 21 mmol/L Low 22-30 [facility] Comment on above: Performed By: #### C MP, CBC, PT ####[place] [address] [address] [place], [place] [phone] Creatinine [Mass/Vol] 1.16 mg/dL High 0.58-0.96 [facility] Comment on above: Performed By: #### C MP, CBC, PT ####[place] [address] [address] [phone] eGFR- Amer. 56 Normal [facility] Comment on above: Performed By: #### C MP, CBC, PT ####[place] [address] [address], [place] [phone] eGFR-All Other Races 47 . Normal [facility] Comment on above: Result Comment: eGFR (Estimated [...] Performed By: #### C MP, CBC, PT ####[facility] [place], [place] [phone] Glucose [Mass/Vol] 96 mg/dL Normal 74-99 [facility] Comment on above: Result Comment: The [place] Diabetes Association (ADA) provides guidance for cutoff [...] Standards of Medical Care in Diabetes 2016, [place] Diabetes Association. Diabetes Care. 2016.39(Suppl 1). Performed By: #### C MP, CBC, PT ####[facility] [place], [place] [phone] Potassium [Moles/Vol] 4.7 mmol/L Normal 3.7-5.1 [facility] Comment on above: Performed By: #### C MP, CBC, PT ####[address] [phone] Protein [Mass/Vol] 5.0 g/dL Low 6.3-8.0 [facility] Comment on above: Performed By: #### C MP, CBC, PT ####[facility] [place], [place] [phone] Sodium [Moles/Vol] 140 mmol/L Normal 136-144 [facility] Comment on above: Performed By: #### C MP, CBC, PT ####[facility] [place], [place] [phone] Urea nitrogen [Mass/Vol] 22 mg/dL High 7-21 [facility] Comment on above: Performed By: #### C MP, CBC, PT ####[facility] [place], [place] [phone] Protimeon 12-07-2020 PT INR 1.2 Normal 0.9-1.3 [facility] Comment on above: Result Comment: Jenny min K Antagonist (VKA) Therapeutic Range: INR 2 to 3 (Target INR of 2.5) Note: For patients treated with VKA drugs, such as warfarin, the [place] College of [employer]icians 2012 Guideline recommends [...] Chest 2012, 141:7S-47S Haile RA, et al. 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 Instructions/Restrictions Patient/Family Response Evaluation: Verbalizes understanding Follow [...] 12/06/2020 Noted Resolved Coronary artery disease of [place] artery of [place]tilio*11/24/2020 S/P CABG (coronary artery bypass graft) [Z95.1] 11/24/2020 Pure hypercholesterolemia [E78.00] 11/24/2020 Type 2 diabetes mellitus without complication, *11/24/2020 Fatigue [R53.83] 11/24/2020 Encounter Status:Closed by COTY MORALES RN on 12/06/20 [facility] Mirella 11-28-2020 JEFFREY Telephone (DIOMEDES) -- ASHVIN RENE ([id number]) 1955 F Date Time Provider Department 11/28/20 [...] 11/29/2020 9:46 AM Signed Faxed orders to [phone] Kd Solitario 11/29/2020 12:22 PM Signed Patient called back and gave alternative fax # [phone] She would also like cath to be scheduled on 12/07. Called scheduling to get it added on Allergies As of Date: 11/28/2020 Noted Allergy Reaction CODEINE 11/24/2020 1 - Mental Status Change 4 - Hives Date Reviewed: 11/24/2020 Reviewed by: Demetra Guadalupe RN - Fully Assessed Reason for Visit: Patient Update [1234] Primary Visit Diagnosis:Coronary artery disease of [place] artery of [place] heart with stable angina pectoris (HCC) [I25.118] Order(s):CARDIAC FREIGHT AIR BRAKE FITTER ORDER [6670695] Order #: [id number]: 1 INTERMEDIATE RAPID COVID [SQITCOVD] Order #: [id number] FUTURE COMP METABOLIC PANEL [SQCMP] Order #: [id number] FUTURE CBC [SQCBC] Order #: [id number] FUTURE LIPID PANEL BASIC [SQLIPB] Order #: [id number] FUTURE CK CREATINE KINASE [SQCK] Order #: [id number] FUTURE ECG COMPLETE [ECG01] Order #: [id number] FUTURE Prescriptions as of 11/28/2020 Sig: ACETAMINOPHEN [...] 11/28/2020 Noted Resolved Coronary artery disease of [place] artery of [place]tilio*11/24/2020 S/P CABG (coronary artery bypass graft) [Z95.1] 11/24/2020 Pure hypercholesterolemia [E78.00] 11/24/2020 Type 2 diabetes mellitus without complication, *11/24/2020 Fatigue [R53.83] 11/24/2020 Encounter Status:Closed by NAY JOSEPH on 11/29/20 [facility] CNOVon 11-24-2020 CNOV Office Visit (CATHMN ) -- ASHVIN RENE ([id number]) 1955 F Date Time Provider Department 11/24/20 9:30 AM NAY JOSEPH During your visit today, we recorded the following information about you: Pulse Respiration Blood pressure Weight 91/minute 20/minute 108/63 64.3 kg Height 1.6 m A. Nay Joseph MD 11/29/2020 7:54 AM Signed [facility] [place] Serena Beck Department of Cardiovascular Medicine SECTION OF INTERVENTIONAL CARDIOLOGY OUTPATIENT VISIT DATE November 23, 2020 OUTPATIENT VISIT TYPE NEW PRIMARY CARE PHYSICIAN: Tushar Solano Jr, DO (DrBerhane) [address] [phone] REFERRING PHYSICIAN: Waqas Mabry MD [address] [facility] [address] CHIEF COMPLAINT: No chief complaint on file. [...] resolved after CABG) 2016 CVA and (?) OK 05/24/16 Echo ? Normal left ventricular end-diastolic [...] Lexiscan injection (more content not included)... Normal [facility] CNCOon 11-22-2020 CNCO Letter Text Normal [facility] CNPNon 11-22-2020 CNPN Telephone (CATHMN) -- ASHVIN RENE ([id number]) 1955 F Date Time Provider Department 11/22/20 NAY JOSEPH During your visit today, we recorded the following information about you: Kd Solitario 11/22/2020 3:54 PM Signed Urgent records request faxed to [phone] Allergies As of Date: 11/22/2020 (Not on File) Date Reviewed: Never Reviewed Reason for Visit: Request Outside Medical Records [[id number]] Problem List As Of Date: 11/22/2020 (None) Encounter Status:Closed by KD SOLITARIO on 11/22/20 [facility] 11-09-2020 CNPN Telephone (REFPHY) -- ASHVIN RENE ([id number]) 1955 F Date Time Provider Department 11/09/20 NO ONE (HISTORICAL) REFPHY During your visit today, we recorded the following information about you: Ashvin Quezada [facility] 11/09/2020 10:11 AM Signed Patient: Ashvinanel Rene Date of : 1955 Patient phone number: [phone] Referring Provider for the encounter: Dr Waqas Mabry Requesting Provider: Cardiology Reason for requesting visit (RFV/signs and symptoms/diagnosis): 2nd Opinion - Severe CAD Person calling: caregiver: ERIC Return call to: self Medical Records/Insurance Card scanned into [email or web address]: Yes Comments: N/A Allergies As of Date: 11/09/2020 (Not on File) Date Reviewed: Never Reviewed Reason for Visit: External Referrals/resources [049] Problem List As Of Date: 11/09/2020 (None) Encounter Status:Closed by ASHVIN DIAZ on 11/09/20 Normal [facility] XA-CARDIAC CATHETERIZATION I MPORTon 10-25-2020 XA-CARDIAC CATHETERIZATION IMPORT Images were obtained outside of [employer] [id number] Normal [facility] Vital Signs Date Time Vital Sign Value Performing Clinician Facility 10-15-2023 14:00-0400 Heart rate 80 /min Hazem Malas DO Work Phone: [facility] 10-15-2023 14:00-0400 Respiratory rate 15 /min Hazem Malas DO Work Phone: [facility] 10-15-2023 14:00-0400 SaO2% (BldA) [Mass fraction] 95 % Hazem Malas DO Work Phone: [facility] 10-15-2023 12:15-0400 Body temperature 98.6 [degF] Hazem Malas DO Work Phone: [facility] 10-15-2023 12:15-0400 Diastolic blood pressure 78 mm[Hg] Hazem Malas DO Work Phone: [facility] 10-15-2023 12:15-0400 Systolic blood pressure 121 mm[Hg] Hazem Malas DO Work Phone: [facility] 10-14-2023 05:00-0400 Body mass index (BMI) [Ratio] 27.66 kg/m2 Hazem Malas DO Work Phone: [facility] 10-14-2023 05:00-0400 Body weight 68.6 kg Hazem Malas DO Work Phone: [facility] 10-13-2023 11:21-0400 Body height 157.5 cm Hazem Malas DO Work Phone: [facility] 08-21-2023 14:09-0500 Body temperature 97.9 [degF] Dwain Mills DPM Work Phone: [facility] 08-21-2023 14:09-0500 Diastolic blood pressure 62 mm[Hg] Dwain Mills DPM Work Phone: [facility] 08-21-2023 14:09-0500 Heart rate 84 /min Dwain Mills DPM Work Phone: [facility] 08-21-2023 14:09-0500 Systolic blood pressure 145 mm[Hg] Dwain Mills DPM Work Phone: [facility] 08-06-2023 16:00-0500 Diastolic blood pressure 65 mm[Hg] [facility] 08-06-2023 16:00-0500 Heart rate 80 /min [facility] 08-06-2023 16:00-0500 Respiratory rate 16 /min [facility] 08-06-2023 16:00-0500 SaO2% (BldA) [Mass fraction] 100 % [facility] 08-06-2023 16:00-0500 Systolic blood pressure 107 mm[Hg] [facility] 08-06-2023 12:48-0500 Inhaled oxygen flow rate 3 L/min [facility] 08-06-2023 11:08-0500 Body height 157.48 cm [facility] 08-06-2023 11:08-0500 Body weight 63.04 kg [facility] 08-04-2023 10:45-0500 Body height 160.66 cm Jolie De Luna Other [facility] [employer] Other 08-04-2023 10:45-0500 Body mass index (BMI) [Ratio] 24.43 kg/m2 Jolie De Luna Other [facility] [employer] Other 08-04-2023 10:45-0500 Body temperature 97.8 [degF] Jolie De Luna Other [facility] [employer] Other 08-04-2023 10:45-0500 Body weight 63.05 kg Jolie De Luna Other [employer] Other 08-04-2023 10:45-0500 Diastolic blood pressure 64 mm[Hg] Jolie De Luna Other [employer] Other 08-04-2023 10:45-0500 SaO2% (BldA) [Mass fraction] 98 % Jolie De Luna Other [employer] Other 08-04-2023 10:45-0500 Systolic blood pressure 110 mm[Hg] Jolie De Luna Other [employer] Other 06-25-2023 11:16-0500 Body height 157.5 cm Norman Braga MD Work Phone: [employer] 06-25-2023 11:16-0500 Body mass index (BMI) [Ratio] 25.79 kg/m2 Norman Braga MD Work Phone: [employer] 06-25-2023 11:16-0500 Body temperature 98.2 [degF] Norman Braga MD Work Phone: [employer] 06-25-2023 11:16-0500 Body weight 63.96 kg Norman Braga MD Work Phone: [employer] 05-20-2022 11:05-0500 Body height 160.66 cm Virginia Marti Other [employer] Other 05-20-2022 11:05-0500 Body mass index (BMI) [Ratio] 21.09 kg/m2 Virginia Marti Other [employer] Other 05-20-2022 11:05-0500 Body temperature 97.3 [degF] Virginia Marti Other [employer] Other 05-20-2022 11:05-0500 Body weight 54.43 kg Virginia Marti Other [employer] Other 05-20-2022 11:05-0500 Diastolic blood pressure 66 mm[Hg] Virginia Marti Other [employer] Other 05-20-2022 11:05-0500 Respiratory rate 18 /min Virginia Marti Other [employer] Other 05-20-2022 11:05-0500 SaO2% (BldA) [Mass fraction] 100 % Virginia Marti Other [employer] Other 05-20-2022 11:05-0500 Systolic blood pressure 112 mm[Hg] Virginia Marti Other [employer] Other 04-12-2021 15:45-0400 Body height 160.66 cm Antonio Julio Other [employer] Other 04-12-2021 15:45-0400 Body mass index (BMI) [Ratio] 25.3 kg/m2 Antonio Julio Other [employer] Other 04-12-2021 15:45-0400 Body weight 65.32 kg Antonio Julio Other [employer] Other 09-09-2019 10:00-0500 BP Diastolic 80 mm[Hg] [facility] 09-09-2019 10:00-0500 BP Systolic 138 mm[Hg] [facility] 09-09-2019 10:00-0500 Pulse (Heart Rate) 80 /min [facility] 09-09-2019 10:00-0500 Pulse Oximetry 96 % [facility] 09-09-2019 10:00-0500 Respiratory Rate 16 /min [facility] 09-09-2019 08:20-0500 BMI (Body Mass Index) 25 kg/m2 [facility] 09-09-2019 08:20-0500 Body weight 63.[address] [facility] 09-09-2019 08:20-0500 Height 160.[address] [facility] 09-09-2019 07:10-0500 Body Temperature 97.9 [degF] [facility] 08-12-2019 09:55-0500 BP Diastolic 73 mm[Hg] [facility] 08-12-2019 09:55-0500 BP Systolic 132 mm[Hg] [facility] 08-12-2019 09:55-0500 Pulse (Heart Rate) 86 /min [facility] 08-12-2019 09:55-0500 Pulse Oximetry 97 % [facility] 08-12-2019 09:55-0500 Respiratory Rate 16 /min [facility] 08-12-2019 08:47-0500 BMI (Body Mass Index) 25.2 kg/m2 [facility] 08-12-2019 08:47-0500 Body weight 63.[address] [facility] 08-12-2019 08:47-0500 [address] 158[address] [facility] 08-12-2019 07:27-0500 Body Temperature 98.8 [degF] [facility] Encounters Encounter Date Encounter Type Care Provider Facility Start: 10-23-2023 End: 10-23-2023 ambulatory MARIAMA INGRAM [facility] Start: 10-13-2023 ambulatory TUSHAR SOLANO [facility] Start: 10-13-2023 End: 10-15-2023 Evaluation and management of inpatient [facility] Start: 10-12-2023 End: 10-15-2023 Evaluation and management of inpatient Jonathan Pizarro DO Work Phone: [facility] 5 ICU Comment on above: Decompensated heart failure (CMS-HCC) (Primary Dx); NSTEMI (non-ST elevated myocardial infarction) (CMS-HCC) Start: 10-12-2023 Documentation procedure Jonathan Pizarro DO Work Phone: [facility] Manager Of Financial Planning Sign In Start: 10-06-2023 End: 10-07-2023 Orders Only Cheikh Rodrigez [facility] Comment on above: 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) Start: 08-22-2023 [facility] Comment on above: Loly Start: 08-21-2023 End: 08-21-2023 ambulatory DWAIN MILLS Not Available Start: 08-21-2023 Bamboo flowsheet Dwain moore DPM Work Phone: [facility] Start: 08-21-2023 Bamboo flowsheet Dwain moore DPM Work Phone: [facility] Start: 08-21-2023 End: 08-21-2023 Office outpatient visit 15 minutes Dwain Mills DPM Work Phone: [facility] Comment on above: 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); Gangrene (CMS/HCC); Pain in toe of right foot; Arteriosclerosis of arteries of extremities (CMS/HCC) Start: 08-07-2023 End: 08-07-2023 ambulatory DWAIN MILLS Not Available Start: 08-06-2023 End: 08-06-2023 ambulatory Tushar Solano Facility:[facility] Start: 08-06-2023 Non-patient / Non-visit [facility] Work Phone: Start: 08-04-2023 End: 08-04-2023 ambulatory Jolie De Luna Other [employer] Other Start: 08-04-2023 [facility] visit new patient Jolie harkins [facility] Start: 07-24-2023 End: 07-24-2023 ambulatory DWAIN MILLS Not Available Start: 06-25-[address] [facility] Start: 06-25-2023 End: 06-25-2023 Office outpatient new 45 minutes Norman Braga MD Work Phone: [facility] Comment on above: Left knee pain, unsp ecified chronicity (Primary Dx) Start: 06-25-2023 End: 06-25-2023 Subsequent hospital visit by physician Norman Braga MD Work Phone: [facility] Start: 10-15-2022 End: 10-16-[address] TUSHAR SOLANO Facility:[facility] Start: 07-16-2022 End: 07-17-[address] TUSHAR SOLANO Facility:[facility] Start: 06-14-2022 End: 06-15-[address] TUSHAR SOLANO Facility:[facility] Start: 05-20-2022 Office outpatient vi sit 15 minutes Virginia Marti [facility] Start: 05-20-2022 End: 05-20-2022 ambulatory JR Tushar Solano Work Phone: [facility] Work Phone: Start: 05-20-2022 End: 05-20-2022 Patient encounter procedure JR Tushar Solano Work Phone: [facility] Start: 06-11-2021 End: 06-11-2021 ambulatory Antonio Kim Other [employer] Other Start: 06-11-2021 Telephone encounter Antonio Cardenas [...] Start: 10-15-2023 Assay of magnesium Nikolas Anthonychar [employer] [facility] Work Phone: Start: 10-15-2023 Radiologic exam chest single view Kallie Roman MD Work Phone: Start: 10-15-2023 Basic metabolic panel calcium total Hazem Malas DO Work Phone: Start: 10-14-2023 Calcium ionized Parul Holder Jeb [employer] [facility] Work Phone: Start: 10-14-2023 Lipid panel Kristyn Avila MD Work Phone: Start: 10-14-2023 Calcium ionized Parul Holder Jeb [employer] Work Phone: Start: 10-14-2023 Cardiac catheterization Obdulia Grove MD Work Phone: Start: 10-14-2023 Basic metabolic panel calcium total Parul Mcdowellfern [employer] Work Phone: Start: 10-14-2023 Ecg routine ecg w/least 12 lds trcg only w/o i&r Parul Holder Jeb [employer] Work Phone: Start: 10-13-2023 Calcium ionized Parul R Jeb [employer] Work Phone: Start: 10-13-2023 Heparin assay Parul Holder Jeb [employer] Work Phone: Start: 10-13-2023 Calcium ionized Hazem Malas DO Work Phone: Start: 10-13-2023 Echo tthrc r-t 2d w/wom-mode compl spec&colr d Parul Holder Jeb [employer] Work Phone: Start: 10-13-2023 Potassium serum plasma/whole blood Hazem Malas DO Work Phone: Start: 10-13-2023 Basic metabolic panel calcium total Parul Russ [employer] Work Phone: Start: 10-13-2023 Basic metabolic panel calcium total Parul Russ [employer] Work Phone: Start: 10-13-2023 Ecg routine ecg w/least 12 lds trcg only w/o i&r Parul Hassann [employer] Work Phone: Start: 10-12-2023 Gluc bld gluc [...] Td Vaccines (2 - Td or Tdap) [facility] Start: 05-20-2032 Tetanus vaccination TETANUS [facility] Start: 05-19-2024 Adult BMI Screening Adult BMI Screen ing [facility] Start: 05-19-2024 Tobacco Screening Tobacco Screening [facility] Start: 11-13-2023 End: 11-13-2023 Patient encounter procedure 11/13/2023 2:30 PM EDT Office Visit [facility] [address] [place] [address] Bernice Davis MD [address] [place] [address] [facility] Start: 10-16-2023 End: 10-16-2023 Patient encounter procedure 10/16/2023 1:30 PM EDT Office Visit [facility] [address] [facility] [address] [place] [address] Genet Small DO [address] [facility] [address] [place] [id number] [facility] Start: 09-09-2023 End: 09-09-2023 Patient encounter procedure 09/09/2023 10:15 AM EST Office Visit [facility] [address] [place] [id number] Dwain Mills, DPM [address] [place] [address] [facility] Start: 08-21-2023 End: 08-21-2023 Patient encounter procedure 08/21/2023 2:00 PM EST Office Visit [facility] [address] [place] [address] Dwain Mills, DPM [address] [place] [address] Arrived [facility] Comment on above: Arrived Start: 08-06-2023 [facility] Start: 03-14-2023 Influenza vaccination [facility] Start: 2018 Fall Risk Screening Fall Risk Screen ing [facility] Start: 2018 Pneumococcal vaccination PNEUM OCOCCAL VACCINE SERIES (2 - PCV) [facility] Start: 11-20-2003 Administration of varicella zoster vaccine Zoster (Shingles) Vaccine (1 of 2) [facility] Start: 11-20-2003 Zoster vaccine hzv l pool for subcutaneous use ZOSTER (SHINGLES) VACCINE (1 of 2) [facility] Start: 1998 Screening for malign ant neoplasm of colon COLORECTAL CANCER SCREENING DISCUSSION [facility] Start: 1993 Lipid panel LIPID SCREENING [facility] Start: 1993 Screening for malign ant neoplasm of breast MAMMOGRAM SCREENING DISCUSSION [facility] Start: 1974 Screening for malign ant neoplasm of cervix CERVICAL CANCER SCREENING DISCUSSION [facility] Start: 1972 Third diphtheria, te tanus and acellular pertussis (DTaP) vaccination TDAP (ADULT) [facility] Start: 11-20-1971 Adult BMI Follow Up Plan Adult BMI Follow Up Plan [facility] Start: 1965 Depression Screening Depression Scre ening [facility] Start: 05-22-1954 COVID-19 VACCINE (#1) COVID-19 VACCI NE (#1) [facility] Start: 1953 Hepatitis C screening HEPATITI S C VIRUS SCREENING [facility] Start: 1953 Medicare Annual Well ness Visit Medicare Annual Wellness Visit [facility] Start: 1953 Screening for osteoporosis DEXA SCAN DISCUSSION [facility] Start: 1953 Thyroid stimulating hormone measurement TSH [facility] Patient Education Atherectomy - Angioplasty of a Noncoronary Vessel Arteriogram (DC) [facility] Work Phone: Patient referral [facility] Radiography for bone length studies XR BONE LENGTH STUDY Imaging Routine Left knee pain, unspecified chronicity 06/25/2023 10:28 AM [facility] Work Phone: XR Knee - left 4 Views XR KNEE L EFT 4+ VIEWS Imaging Routine Left knee pain, unspecified chronicity 06/25/2023 10:28 AM [facility] Immunizations Immunization Date Immunization Notes Care Provider Joe silva 05-20-2022 tetanus and diphther ia toxoids, adsorbed, preservative free, for adult use (5 Lf of tetanus toxoid and 2 Lf of diphtheria toxoid) Virginia Marti Other [facility] 05-21-2018 Seasonal trivalent influenza vaccine, adjuvanted, preservative free Cheikh Rodrigez CMA [facility] 05-21-2018 influenza virus vaccine, unspecified formulation Norman Braga MD Work Phone: [facility] 09-12-2014 pneumococcal polysaccharide vaccine, 23 valent Cheikh Rain [facility] NEGATED: Highlighted row has not occurred!02-16-2023 pneumococcal conjugate vaccine, 13 valent Cheikh Rain [facility] Payers Date Payer Category Payer Self-pay [id number] 2022 Medicare [id number] 2020 Unknown [employer] [id number] 2020-Present Indemnity [id number] 2018 Medicare MEDICARE MEDICAR E A AND B [id number] 2018-Present [place] Medicare [id number] 1959 Medicare [id number] 1959 Unknown [id number] 1959 Unknown [id number] 1953 Unknown [id number] 1953 Unknown [id number] 1953 Unknown [id number] [id number] 1953 Unknown [id number] [id number] 1953 Unknown [id number] [id number] 1953 Unknown [id number] [id number] 9 1953 Unknown [id number] [id number] 9 1953 Unknown [id number] [id number] 9 1953 Unknown [id number] [id number] 6 1953 Unknown [id number] [id number] 6 1953 Unknown [id number] [id number] 6 1953 Unknown [id number] [id number] 6 Unknown [id number] Unknown [id number] Unknown [id number] Social History Date Type Detail Facility Start: 06-18-2016 End: 09-09-2019 Tobacco smoking status NHIS Never smoked tobacco (finding) [facility] Start: 1955 Sex Assigned At Female F [facility] Start: 1955 Sex Assigned At [facility] on file [facility] Start: 08-24-2020 End: 06-25-2023 Sex Assigned At [facility] [employer] Other Start: 06-18-2016 End: 06-25-2023 Tobacco use and exposure Smokeless tobacco non-user [facility] Start: 08-24-2020 End: 06-25-2023 History of Social function [facility] Start: 08-07-2023 End: 08-21-2023 Alcohol intake Lifetime non-drinker (finding) [facility] Start: 05-19-2023 End: 10-15-2023 Alcohol intake Current non-drinker of alcohol (finding) [employer] Unknown [employer] [facility] Has the electric, [employer] s, oil, or water company threatened to shut off services in your home in past 12Mo No [employer] [facility] How often to you hav e a drink containing alcohol? Never [employer] Procedure Code Equipment Code Equipment Origin al Text Equipment Identifier Dates Phacoemulsification of cataract with intraocular lens implantation [id number] FDA Start: 08-12-2019 Phacoemulsification of cataract with intraocular lens implantation Posterior-chamber intraocular lens, pseudophakic ()[id number] FDA Start: 09-09-2019 Loop Recorder [facility] - [id number] - [id number] Start: 05-24-2016 System Cor Stnt 3.0mm X 12mm 145cm [employer] Harry - [id number] FDA Start: 02-15-2023 Goals Date Patient [...] Description: INTERVENTIONS: 1. Encourage patient or legal delivery representative to report early pain and ask [...] per policy 9. Teach patient or legal delivery representative interventions for comforting Outcome: Progressing Note: [...] at the bedside 7. Instruct patient/ patient delivery representative about use of safety devices 8. Include patient/ patient delivery representative in decisions related to safety Outcome: [...] hygiene technique 7. Identify and instruct patient/patient delivery representative in use of appropriate isolation precautions for identified infection/symptoms 8. Provide and discuss with patient/patient delivery representative on educational MDRO sheet 9. Encourage and monitor nutritional status daily and consult ob/gyn nurse if indicated 10. Implement neutropenic guidelines as needed 11. Review exposure to history of communicable disease and recent travel history on admission 12. Encourage annual influenza vaccine 13. Encourage pneumonia vaccine Outcome: Progressing Note: Evaluation of progress towards goal: Patient remains free from infection due to hospitalization. Patient remains afebrile at this time. Problem: Knowledge Deficit Goal: Patient/patient delivery representative demonstrates understanding of disease process, treatment plan, medications, and discharge instructions Description: INTERVENTIONS 1. Complete learning assessment and assess knowledge base 2. Provide teaching at level of understanding 3. Provide teaching via preferred learning method(s) Outcome: Progressing Note: Evaluation of progress towards goal: Patient demonstrates understanding of plan of care and treatment plan at this time. [facility] 10-15-2023 Miscellaneous Notes Problem: Pain Goal: Patient goal is pain score less than 4, able to rest, and participant in treatment plan as appropriate Description: INTERVENTIONS: 1. Encourage patient or legal delivery representative to report early pain and ask [...] per policy 9. Teach patient or legal delivery representative interventions for comforting Outcome: Progressing Note: [...] at the bedside 7. Instruct patient/ patient delivery representative about use of safety devices 8. Include patient/ patient delivery representative in decisions related to safety Outcome: [...] hygiene technique 7. Identify and instruct patient/patient delivery representative in use of appropriate isolation precautions for identified infection/symptoms 8. Provide and discuss with patient/patient delivery representative on educational MDRO sheet 9. Encourage and monitor nutritional status daily and consult ob/gyn nurse if indicated 10. Implement neutropenic guidelines as needed 11. Review exposure to history of communicable disease and recent travel history on admission 12. Encourage annual influenza vaccine 13. Encourage pneumonia vaccine Outcome: Progressing Note: Evaluation of progress towards goal: Patient remains free from infection due to hospitalization. Patient remains afebrile at this time. Problem: Knowledge Deficit Goal: Patient/patient delivery representative demonstrates understanding of disease process, treatment [...] Description: INTERVENTIONS: 1. Encourage patient or legal delivery representative to report early pain and ask [...] per policy 9. Teach patient or legal delivery representative interventions for comforting Outcome: Progressing Note: [...] at the bedside 7. Instruct patient/ patient delivery representative about use of safety devices 8. Include patient/ patient delivery representative in decisions related to safety Outcome: [...] hygiene technique 7. Identify and instruct patient/patient delivery representative in use of appropriate isolation precautions for identified infection/symptoms 8. Provide and discuss with patient/patient delivery representative on educational MDRO sheet 9. Encourage and monitor nutritional status daily and consult ob/gyn nurse if indicated 10. Implement neutropenic guidelines as needed 11. Review exposure to history of communicable disease and recent travel history on admission 12. Encourage annual influenza vaccine 13. Encourage pneumonia vaccine Outcome: Progressing Note: Evaluation of progress towards goal: Pt afebrile and no outward signs of infection during shift. Problem: Knowledge Deficit Goal: Patient/patient delivery representative demonstrates understanding of disease process, treatment [...] develop effective communication strategies 4. Include patient/patient delivery representative in decisions related to communication Outcome: [...] Collaborate with ancillary departments 14. Include patient/patient delivery representative in decisions related to anxiety Outcome: [...] providing care 6. Collaborate with pastoral/spiritual care, social work faculty member, mental health counselor as needed. 7. Instruct patient on diversional activities such as physical activity, distraction, and deep breathing exercises to assist with coping 8. Involve patient's delivery representative in care Outcome: Progressing Note: Evaluation [...] supplement as ordered 13. Collaborate with clinical ob/gyn nurse 14. Include patient/ patient's delivery representative in decisions related to nutrition Outcome: [...] be free from fall Description: Interventions: 1. Stuart to environment 2. Hourly rounds addressing the [...] non-skid footwear 11. Teach patient and patient delivery representative to maintain environment for safety and [...] (cane, walker) within reach 19. Request patient delivery representative bring adaptive equipment/mobility aids from home or obtain and provide as needed 20. Consult pharmacy regarding effects of med's affecting mobility, cognition, and alternatives 21. Obtain physician order for PT if risk factors associated with mobility are present 22. Obtain physician order for OT as appropriate 23. Utilize diversional activities 24. Educate patient and patient delivery representative how to maintain a safe environment during visitation times (notify nurse prior to leaving bedside) 25. Consider appropriateness of medical or non-back office medical assistant 26. Set up voiding schedule as appropriate (every 2 hours) Outcome: Progressing Note: Evaluation of progress towards goal: No signs of falls during shift. Problem: Pain Goal: Patient goal is pain score less than 4, able to rest, and participant in treatment plan as appropriate Description: INTERVENTIONS: 1. Encourage patient or legal delivery representative to report early pain and ask [...] per policy 9. Teach patient or legal delivery representative interventions for comforting Outcome: Progressing Note: [...] at the bedside 7. Instruct patient/ patient delivery representative about use of safety devices 8. Include patient/ patient delivery representative in decisions related to safety Outcome: [...] hygiene technique 7. Identify and instruct patient/patient delivery representative in use of appropriate isolation precautions for identified infection/symptoms 8. Provide and discuss with patient/patient delivery representative on educational MDRO sheet 9. Encourage and monitor nutritional status daily and consult ob/gyn nurse if indicated 10. Implement neutropenic guidelines as needed 11. Review exposure to history of communicable disease and recent travel history on admission 12. Encourage annual influenza vaccine 13. Encourage pneumonia vaccine Outcome: Progressing Note: Evaluation of progress towards goal: Pt is afebrile at this time. Problem: Knowledge Deficit Goal: Patient/patient delivery representative demonstrates understanding of disease process, treatment [...] Score of =/> 25 or indicated by [facility] Assessment Goal: Patient should be free from fall Description: Interventions: 1. Stuart to environment 2. Hourly rounds addressing the [...] non-skid footwear 11. Teach patient and patient delivery representative to maintain environment for safety and [...] (cane, walker) within reach 19. Request patient delivery representative bring adaptive equipment/mobility aids from home or obtain and provide as needed 20. Consult pharmacy regarding effects of med's affecting mobility, cognition, and alternatives 21. Obtain physician order for PT if risk factors associated with mobility are present 22. Obtain physician order for OT as appropriate 23. Utilize diversional activities 24. Educate patient and patient delivery representative how to maintain a safe environment during visitation times (notify nurse prior to leaving bedside) 25. Consider appropriateness of medical or non-back office medical assistant 26. Set up voiding schedule as appropriate (every 2 hours) Outcome: Progressing Note: Evaluation of progress towards goal: Pt is free from falls at this time. Pre Procedure Evaluation: H&P was reviewed and the patient was examined. No change has occurred in the patient's condition since the H&P was completed. 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 Psych Rn Visit: ACS > 24hrs Chest Pain Symptom [...] Description: INTERVENTIONS: 1. Encourage patient or legal delivery representative to report early pain and ask [...] per policy 9. Teach patient or legal delivery representative interventions for comforting Outcome: Progressing Note: [...] at the bedside 7. Instruct patient/ patient delivery representative about use of safety devices 8. Include patient/ patient delivery representative in decisions related to safety Outcome: [...] hygiene technique 7. Identify and instruct patient/patient delivery representative in use of appropriate isolation precautions for identified infection/symptoms 8. Provide and discuss with patient/patient delivery representative on educational MDRO sheet 9. Encourage and monitor nutritional status daily and consult ob/gyn nurse if indicated 10. Implement neutropenic guidelines as needed 11. Review exposure to history of communicable disease and recent travel history on admission 12. Encourage annual influenza vaccine 13. Encourage pneumonia vaccine Outcome: Progressing Note: Evaluation of progress towards goal: Patient afebrile and WBC of 5.3. Will continue to monitor for signs of infection Problem: Knowledge Deficit Goal: Patient/patient delivery representative demonstrates understanding of disease process, treatment [...] develop effective communication strategies 4. Include patient/patient delivery representative in decisions related to communication Outcome: [...] supplement as ordered 13. Collaborate with clinical ob/gyn nurse 14. Include patient/ patient's delivery representative in decisions related to nutrition Outcome: Progressing Note: Evaluation of progress towards goal: Collaborating with interdisciplinary team to ensure adequate nutritional intake. Problem: Moderate - High Risk Fall Score Description: Beal Fall Score of =/> 25 or indicated by [facility] Assessment Goal: Patient should be free from fall Description: Interventions: 1. Stuart to environment 2. Hourly rounds addressing the [...] non-skid footwear 11. Teach patient and patient delivery representative to maintain environment for safety and [...] (cane, walker) within reach 19. Request patient delivery representative bring adaptive equipment/mobility aids from home or obtain and provide as needed 20. Consult pharmacy regarding effects of med's affecting mobility, cognition, and alternatives 21. Obtain physician order for PT if risk factors associated with mobility are present 22. Obtain physician order for OT as appropriate 23. Utilize diversional activities 24. Educate patient and patient delivery representative how to maintain a safe environment during visitation times (notify nurse prior to leaving bedside) 25. Consider appropriateness of medical or non-back office medical assistant 26. Set up voiding schedule as appropriate [...] Description: INTERVENTIONS: 1. Encourage patient or legal delivery representative to report early pain and ask [...] per policy 9. Teach patient or legal delivery representative interventions for comforting Outcome: Progressing Note: [...] at the bedside 7. Instruct patient/ patient delivery representative about use of safety devices 8. Include patient/ patient delivery representative in decisions related to safety Outcome: [...] hygiene technique 7. Identify and instruct patient/patient delivery representative in use of appropriate isolation precautions for identified infection/symptoms 8. Provide and discuss with patient/patient delivery representative on educational MDRO sheet 9. Encourage and monitor nutritional status daily and consult ob/gyn nurse if indicated 10. Implement neutropenic guidelines as needed 11. Review exposure to history of communicable disease and recent travel history on admission 12. Encourage annual influenza vaccine 13. Encourage pneumonia vaccine Outcome: Progressing Note: Evaluation of progress towards goal: Pt is afebrile at this time. Problem: Knowledge Deficit Goal: Patient/patient delivery representative demonstrates understanding of disease process, treatment [...] Score of =/> 25 or indicated by [facility] Assessment Goal: Patient should be free from fall Description: Interventions: 1. Stuart to environment 2. Hourly rounds addressing the [...] non-skid footwear 11. Teach patient and patient delivery representative to maintain environment for safety and [...] (cane, walker) within reach 19. Request patient delivery representative bring adaptive equipment/mobility aids from home or obtain and provide as needed 20. Consult pharmacy regarding effects of med's affecting mobility, cognition, and alternatives 21. Obtain physician order for PT if risk factors associated with mobility are present 22. Obtain physician order for OT as appropriate 23. Utilize diversional activities 24. Educate patient and patient delivery representative how to maintain a safe environment during visitation times (notify nurse prior to leaving bedside) 25. Consider appropriateness of medical or non-back office medical assistant 26. Set up voiding schedule as appropriate [...] Description: INTERVENTIONS: 1. Encourage patient or legal delivery representative to report early pain and ask [...] per policy 9. Teach patient or legal delivery representative interventions for comforting Outcome: Progressing Note: [...] at the bedside 7. Instruct patient/ patient delivery representative about use of safety devices 8. Include patient/ patient delivery representative in decisions related to safety Outcome: [...] hygiene technique 7. Identify and instruct patient/patient delivery representative in use of appropriate isolation precautions for identified infection/symptoms 8. Provide and discuss with patient/patient delivery representative on educational MDRO sheet 9. Encourage and monitor nutritional status daily and consult ob/gyn nurse if indicated 10. Implement neutropenic guidelines as needed 11. Review exposure to history of communicable disease and recent travel history on admission 12. Encourage annual influenza vaccine 13. Encourage pneumonia vaccine Outcome: Progressing Note: Evaluation of progress towards goal: Pt afebrile and no outward signs of infection during shift. Problem: Knowledge Deficit Goal: Patient/patient delivery representative demonstrates understanding of disease process, treatment [...] develop effective communication strategies 4. Include patient/patient delivery representative in decisions related to communication Outcome: [...] Collaborate with ancillary departments 14. Include patient/patient delivery representative in decisions related to anxiety Outcome: [...] providing care 6. Collaborate with pastoral/spiritual care, social work faculty member, mental health counselor as needed. 7. Instruct patient on diversional activities such as physical activity, distraction, and deep breathing exercises to assist with coping 8. Involve patient's delivery representative in care Outcome: Progressing Note: Evaluation [...] supplement as ordered 13. Collaborate with clinical ob/gyn nurse 14. Include patient/ patient's delivery representative in decisions related to nutrition Outcome: [...] be free from fall Description: Interventions: 1. Stuart to environment 2. Hourly rounds addressing the [...] non-skid footwear 11. Teach patient and patient delivery representative to maintain environment for safety and [...] (cane, walker) within reach 19. Request patient delivery representative bring adaptive equipment/mobility aids from home or obtain and provide as needed 20. Consult pharmacy regarding effects of med's affecting mobility, cognition, and alternatives 21. Obtain physician order for PT if risk factors associated with mobility are present 22. Obtain physician order for OT as appropriate 23. Utilize diversional activities 24. Educate patient and patient delivery representative how to maintain a safe environment during visitation times (notify nurse prior to leaving bedside) 25. Consider appropriateness of medical or non-back office medical assistant 26. Set up voiding schedule as appropriate (every 2 hours) Outcome: Progressing Note: Evaluation of progress towards goal: No signs of falls during shift. [facility] N[facility] Inpatient Discharge Summary BRIEF OVERVIEW Admitting Provider: Jonathan Pizarro DO Discharge Provider: Jonathan Pizarro DO Primary Care Physician at Discharge: TUSHAR SOLANO JR, DO [phone] Admission Date: 10/12/2023 Discharge Date: No discharge [...] BPH 11/13/2023 2:30 PM Bern[address] Davis MD [facility] Referrals and Follow-ups to Schedule No [...] Your Medications These medications were sent to [facility]/pharmacy #[id number] - [place], [place] - [address] [facility] [address], [place] [address] bisoprolol 5 mg tablet collagenase ointment dapagliflozin propanediol 10 mg tablet sacubitriL-valsartan 24-26 mg tablet spironolactone 25 mg tablet Kallie Roman MD PGY-3, Internal Medicine [facility] Associated attestation - Anup Reed MD - [...] in 1 week documented in this encounter [facility] 10-15-2023 Hospital Discharge instructions Kallie Roman MD [...] week of discharge documented in this encounter [facility] 10-15-2023 History of Present illness Narrative Images [...] RCA in 2014. She also went to [facility] and had orbital arthrectomy of the circumflex, PCI of the distal circumflex, PCI of the mid to distal circumflex was overlapping stents and PCI proximal circumflex in 2020. She then locally had HARRY to circumflex 02/15/2023, prior stent to the LAD in 2007, prior CVA hypotension on chronic midodrine. Patient initially presented to [facility] with generalized weakness and shortness of breath. She was found to [place] [address] as well as high sensitivity troponin greater than 26,000. Potassium was profoundly low at 2.6. She was transferred to [facility] for further management. She had [...] be continued indefinitely given significant disease in [place] coronary arteries. Optimize medical therapy for coronary [...] be continued indefinitely given significant disease in [place] coronary arteries. Optimize medical therapy for coronary artery disease. Post percutaneous coronary intervention orders Remove sheath 2.5 hours after stopping Angiomax drip. Family updated CHER Mccoy APRN-CNP 10/14/23 1001 Images from the original note were not included. [facility] PROGRESS NOTE Ashvin Rene Ashvin Rene is a 67 y.o. 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 Optimize medical therapy for coronary [...] be continued indefinitely given significant disease in [place] coronary arteries. Optimize medical therapy for coronary [...] This note was completed using a voice circulation assistant system. Every effort was made to ensure accuracy. However, inadvertent computerized circulation assistant errors may be present. Associated attestation - [...] found to be in CHF with proBNP 82274, HS trop 44164, and K 2.1 which was repleted but [...] started on Heparin gtt and transferred to [facility]. She states she feels better [...] be continued indefinitely given significant disease in [place] coronary arteries. Optimize medical therapy for coronary [...] be continued indefinitely given significant disease in [place] coronary arteries. 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 Every effort was made to ensure accuracy. However, inadvertent computerized circulation assistant errors may be present. Associated attestation - Anup Reed MD - 10/13/2023 4:47 PM EDT See my separate note documented in this encounter [employer] 10-15-2023 Note XR CHEST 1 VW Procedure: Chest x-ray performed Number of views:AP view History:Hypoxia Comparison:10/12/2023 Findings: The heart and mediastinal silhouette are stable. There is pulmonary vascular congestion. There are no focal consolidations. There is a small left pleural effusion. There is no pneumothorax Impression: Pulmonary vascular congestion. Finalized by Kay Dunn DO on 10/15/2023 10:48 AM [facility] 10-15-2023 Note Procedure: Chest x-ray performed Number [...] Description: INTERVENTIONS: 1. Encourage patient or legal delivery representative to report early pain and ask [...] per policy 9. Teach patient or legal delivery representative interventions for comforting Outcome: Progressing Note: [...] at the bedside 7. Instruct patient/ patient delivery representative about use of safety devices 8. Include patient/ patient delivery representative in decisions related to safety Outcome: [...] hygiene technique 7. Identify and instruct patient/patient delivery representative in use of appropriate isolation precautions for identified infection/symptoms 8. Provide and discuss with patient/patient delivery representative on educational MDRO sheet 9. Encourage and monitor nutritional status daily and consult ob/gyn nurse if indicated 10. Implement neutropenic guidelines as needed 11. Review exposure to history of communicable disease and recent travel history on admission 12. Encourage annual influenza vaccine 13. Encourage pneumonia vaccine Outcome: Progressing Note: Evaluation of progress towards goal: Pt afebrile and no outward signs of infection during shift. Problem: Knowledge Deficit Goal: Patient/patient delivery representative demonstrates understanding of disease process, treatment [...] develop effective communication strategies 4. Include patient/patient delivery representative in decisions related to communication Outcome: [...] Collaborate with ancillary departments 14. Include patient/patient delivery representative in decisions related to anxiety Outcome: [...] providing care 6. Collaborate with pastoral/spiritual care, social work faculty member, mental health counselor as needed. 7. Instruct patient on diversional activities such as physical activity, distraction, and deep breathing exercises to assist with coping 8. Involve patient's delivery representative in care Outcome: Progressing Note: Evaluation [...] supplement as ordered 13. Collaborate with clinical ob/gyn nurse 14. Include patient/ patient's delivery representative in decisions related to nutrition Outcome: [...] Score of =/> 25 or indicated by [facility] Assessment Goal: Patient should be free from fall Description: Interventions: 1. [place] to environment 2. Hourly rounds addressing the [...] non-skid footwear 11. Teach patient and patient delivery representative to maintain environment for safety and [...] (cane, walker) within reach 19. Request patient delivery representative bring adaptive equipment/mobility aids from home or obtain and provide as needed 20. Consult pharmacy regarding effects of med's affecting mobility, cognition, and alternatives 21. Obtain physician order for PT if risk factors associated with mobility are present 22. Obtain physician order for OT as appropriate 23. Utilize diversional activities 24. Educate patient and patient delivery representative how to maintain a safe environment during visitation times (notify nurse prior to leaving bedside) 25. Consider appropriateness of medical or non-back office medical assistant 26. Set up voiding schedule as appropriate (every 2 hours) Outcome: Progressing Note: Evaluation of progress towards goal: No signs of falls during shift. T [employer] 10-14-2023 Plan of care note Problem: Pain Goal: Patient goal is pain score less than 4, able to rest, and participant in treatment plan as appropriate Description: INTERVENTIONS: 1. Encourage patient or legal delivery representative to report early pain and ask [...] per policy 9. Teach patient or legal delivery representative interventions for comforting Outcome: Progressing Note: [...] at the bedside 7. Instruct patient/ patient delivery representative about use of safety devices 8. Include patient/ patient delivery representative in decisions related to safety Outcome: [...] hygiene technique 7. Identify and instruct patient/patient delivery representative in use of appropriate isolation precautions for identified infection/symptoms 8. Provide and discuss with patient/patient delivery representative on educational MDRO sheet 9. Encourage and monitor nutritional status daily and consult ob/gyn nurse if indicated 10. Implement neutropenic guidelines as needed 11. Review exposure to history of communicable disease and recent travel history on admission 12. Encourage annual influenza vaccine 13. Encourage pneumonia vaccine Outcome: Progressing Note: Evaluation of progress towards goal: Pt is afebrile at this time. Problem: Knowledge Deficit Goal: Patient/patient delivery representative demonstrates understanding of disease process, treatment [...] be free from fall Description: Interventions: 1. Stuart to environment 2. Hourly rounds addressing the [...] non-skid footwear 11. Teach patient and patient delivery representative to maintain environment for safety and [...] (cane, walker) within reach 19. Request patient delivery representative bring adaptive equipment/mobility aids from home or obtain and provide as needed 20. Consult pharmacy regarding effects of med's affecting mobility, cognition, and alternatives 21. Obtain physician order for PT if risk factors associated with mobility are present 22. Obtain physician order for OT as appropriate 23. Utilize diversional activities 24. Educate patient and patient delivery representative how to maintain a safe environment during visitation times (notify nurse prior to leaving bedside) 25. Consider appropriateness of medical or non-back office medical assistant 26. Set up voiding schedule as appropriate (every 2 hours) Outcome: Progressing Note: Evaluation of progress towards goal: Pt is free from falls at this time. [facility] [employer] 10-14-2023 Procedure note Pre Procedure Evaluation: H&P was reviewed and the patient was examined. No change has occurred in the patient's condition since the H&P was completed. 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 Psych Rn Visit: ACS > 24hrs Chest Pain Symptom Assessment: typical Cardiovascular Instability: No Heart Failure: Yes Congestive Heart Failure (NYHA Classification within 2 weeks): III Heart Failure Newly Diagnosed: No Heart Failure Type: Systolic Electrocardiac Assessment Method: None Stress Test Performed: No Cardiac CTA: No [facility] Clinical Frailty Scale (Assessment immediately prior to procedure): 6: Moderately Frail Cardiac Arrest Out of Hospital: No Cardiac Arrest at Transferring Facility: No [facility] 10-14-2023 Attending History and physical note HISTORY AND PHYSICAL INTERVAL NOTE: Ashvin Rene [id number] H&P reviewed. The patient was examined and there are no changes to the H&P. Alexi Freeman MD Source Note - Lenny Rodriguez MD - 10/12/2023 11:49 PM EDT Images from the original note were not included. [facility] [address] [place] [address] HISTORY & PHYSICAL / CONSULT NOTE Ashvin [...] found to be in CHF with proBNP 48113, HS trop 76177, and K 2.1 which was repleted but [...] started on Heparin gtt and transferred to [facility]. She states she feels better now and denies CP SOB. Previous Medical History: Past Medical History: Diagnosis Date Angina pectoris ([facility]) Atherosclerosis of coronary artery bypass graft Atherosclerotic heart disease Coronary angioplasty status Coronary artery disease CVA (cerebral vascular accident) ([facility]) Dyspnea Hyperlipidemia Hypertension Hypotension Other chest pain Stroke ([facility]) Previous Surgical History: Past Surgical History: Procedure Laterality Date CARDIAC CATHETERIZATION Cardiac catheterization N/A 02/15/2023 Performed by Star Espinosa MD at [facility] CARDI[facility]ATH [facility]S Cardiac catheterization - LV cors w/graft check N/A 10/25/2020 Performed by Alexi Freeman MD at [facility] CARDIAC CATH [facility]S Coronary angiogram and graft/[place] N/A 02/15/2023 Performed by Star Espinosa MD at [facility] CATH [facility] Coronary angiogram and left ventricular gram/pressure + graft/[place] N/A 10/25/2020 Performed by Alexi Freeman MD at [facility] CATH [facility] Coronary angiogram and left ventricular gram/pressure + graft/[place] N/A 06/18/2016 Performed by Alexi Freeman MD at [facility] CARDIAC CATH [facility]S CORONARY ANGIOPLASTY 12/08/2020 orbital atherectomy and 2 HARRY to prox and distal Circ, at [facility] per Dr. Madhav Ugalde CORONARY ARTERY BYPASS GRAFT 09/08/2014 HYSTERECTOMY INSERTION LOOP RECORDER 05/24/2016 Percutaneous coronary angioplasty left circumflex N/A 02/15/2023 Performed by Star Espinosa MD at [facility] CATH [facility] Stent drug-eluting left circumflex N/A 02/15/2023 Performed by Star Espinosa MD at [facility]ATH [facility] Allergies: Allergies Allergen Reactions Aspirin-Dipyridamole aggronox Atorvastatin Hives lipitor Cefadroxil duricef Codeine Fenofibrate Micronized tricor Fluvoxamine luvox Nefazodone serzone Niacin Other reaction(s): Intolerance-unknown Hospital Meds: Current Facility-Administered Medications Medication Dose Route Frequency Provider Last Rate Last Admin calcium gluconate IVPB 1000 mg/50 mL (20 mg/mL premix) 1,000 mg intravenous PRN Parul Russ, [employer]IC[employer] Or calcium gluconate IVPB 2000 mg/100 mL (20 mg/mL premix) 2,000 mg intravenous PRN Parul Hassann, [employer]IC[employer] Or calcium gluconate 3,000 mg in sodium chloride 0.9 % 100 mL IVPB 3,000 mg intravenous PRN Parul Russ, STABLE CLEANER-DOCTOR P[employer]IATRIC MEDICINE dextrose (GLUTOSE) 40 % gel 15 g 15 g oral PRN Parul Russ, STABLE CLE[employer]ER[employer]DO[employer]IC[employer] dextrose 5 % (D5W) infusion 100 mL/hr intravenous Continuous PRN Parul Russ, STABLE CLEANER[employer]IC[employer] dextrose 50 % in water (D50W) 50% solution 25 mL 25 mL intravenous PRN Parul Russ, STABLE CLE[employer]ER[employer]DO[employer]IC[employer] glucagon HCL injection 1 mg 1 mg intramuscular PRN Parul Russ, STABLE CLE[employer]ER[employer]IC[employer] heparin (porcine) injection 2,000 Units 2,000 Units intravenous PRN Parul Russ, STABLE CLE[employer]ER[employer]IC[employer] [START ON 10/13/2023] heparin infusion 23081 units/500 mL in 0.45% NaCl (50 units/mL premix) 300-3,500 Units/hr intravenous Continuous Parul Russ, STABLE CLE[employer]ER[employer]DO[employer] MEDIC[employer] magnesium sulfate IVPB 2000 mg/50 mL in iso-osmotic water (40 mg/mL premix) 2,000 mg intravenous PRN Parul Hassann, STABLE CLEANER[employer]IC[employer] Or magnesium sulfate IVPB 4000 mg/100 mL in iso-osmotic water (40 mg/mL premix) 4,000 mg intravenous PRN Parul Hassann, STABLE CLE[employer]ER[employer]DO[employer] MEDIC[employer] potassium chloride (K-TAB,KLOR-CON) CR tablet 20-50 mEq 20-50 mEq oral PRN Parul R Jeb, STABLE CLEANER[employer]IC[employer] Or potassium chloride (KAYCIEL) 20 mEq/15 mL solution 20-50 mEq 20-50 mEq oral PRN Parul Russ, STABLE CLEANER-DOCTOR [employer]IC MEDIC[employer] potassium chloride IVPB 10 mEq/50 mL in water (0.2 mEq/mL premix) 10 mEq intravenous PRN Parul R Jeb, STABLE CLEANER[employer]DO[employer]IC[employer] Or potassium chloride IVPB 10 mEq/100 mL in water (0.1 mEq/mL premix) 10 mEq intravenous PRN Parul R Jeb, STABLE CLE[employer]ER[employer]DO[employer]IC[employer] sodium phosphate 20 mmol in sodium chloride 0.9 % 250 mL IVPB 20 mmol intravenous PRN Parul R Jeb, STABLE CLEANER[employer]IC[employer] Or sodium phosphate 20 mmol in sodium chloride 0.9 % 100 mL IVPB 20 mmol intravenous PRN Parul R Jeb, STABLE CLE[employer]ER[employer]IC[employer] Or sod phos di, mono-K phos mono (K-PHOS NEUTRAL) 250 mg tablet 2 tablet 2 tablet oral PRN Parul R Jeb, STABLE CLEANER[employer]DOCTOR [employer]IC[employer] sodium chloride 0.9 % infusion 10 mL/hr intravenous Continuous PRN Parul R Jeb, STABLE CLEANER-DOCTOR [employer]IC[employer] sodium chloride 0.9 % infusion 10 mL/hr intravenous Continuous PRN Parul R Jeb, STABLE CLEANER[employer]DO[employer]IC[employer] sodium chloride 0.9 % infusion 10 mL/hr intravenous Continuous PRN Parul R Jeb, STABLE CLE[employer]ER[employer]IC[employer] Home Meds: Prior to Admission medications Medication [...] be continued indefinitely given significant disease in [place] coronary arteries. Optimize medical therapy for coronary [...] be continued indefinitely given significant disease in [place] coronary arteries. Optimize medical therapy for coronary [...] Acute on chronic HFrEF Elevated HS troponin 50746 ASCVD h/o CABG and s/p PCI Cx [...] 2,000 Units intravenous PRN Parul R Jeb, STABLE CLEANER[employer]DO[employer]IC[employer] heparin infusion 24357 units/500 mL in 0.45% NaCl (50 units/mL premix) 300-3,500 Units/hr intravenous Continuous Parul Holder Jeb, STABLE CLEANER[employer]DO[employer]IC[employer] 16 mL/hr at 10/13/23 0013 800 Units/hr at 10/13/23 0013 magnesium sulfate IVPB 2000 mg/50 mL in iso-osmotic water (40 mg/mL premix) 2,000 mg intravenous PRN Parul R Jeb, STABLE CLEANER-DO[employer]IC[employer] Or magnesium sulfate IVPB 4000 mg/100 mL in iso-osmotic water (40 mg/mL premix) 4,000 mg intravenous PRN Parul R Jeb, STABLE CLEANER-DOCTOR [employer]IC MEDICINE midodrine (PROAMATINE) tablet 5 mg 5 mg oral Q8H PRN Parul R Jeb, STABLE CLEANER-DOCTOR [employer]IC MEDIC[employer] potassium chloride (K-TAB,KLOR-CON) CR tablet 20-50 mEq 20-50 mEq oral PRN Parul R Jeb, STABLE CLEANER-DO[employer]IC[employer] Or potassium chloride (KAYCIEL) 20 mEq/15 mL solution 20-50 mEq 20-50 mEq oral PRN Parul R Jeb, STABLE CLEANER-DOCTOR [employer]IC [employer]IC[employer] potassium chloride IVPB 10 mEq/50 mL in water (0.2 mEq/mL premix) 10 mEq intravenous PRN Parul R Jeb, STABLE CLEANER[employer]IC[employer] Or potassium chloride IVPB 10 mEq/100 mL in water (0.1 mEq/mL premix) 10 mEq intravenous PRN Parul R Jeb, STABLE CLEANER[employer]DOCTOR [employer]IC MEDICINE ranolazine (RANEXA) 12 hr tablet 1,000 mg 1,000 mg oral BID Parul R Jeb, STABLE CLEANER-DOCTOR [employer]IC MEDICINE rosuvastatin (CRESTOR) tablet 20 mg 20 mg oral Daily Parul R Jeb, STABLE CLEANER-DOCTOR [employer] MEDIC[employer] sodium phosphate 20 mmol in sodium chloride 0.9 % 250 mL IVPB 20 mmol intravenous PRN Parul R Jeb, STABLE CLEANER-DOCTOR [employer]IC[employer] Or sodium phosphate 20 mmol in sodium chloride 0.9 % 100 mL IVPB 20 mmol intravenous PRN Parul R Jeb, STABLE CLEANER[employer]DO[employer]IC[employer] Or sod phos di, mono-K phos mono (K-PHOS NEUTRAL) 250 mg tablet 2 tablet 2 tablet oral PRN Parul R Jeb, STABLE CLEANER-DOCTOR [employer]IC MEDICINE sodium chloride 0.9 % infusion 10 mL/hr intravenous Continuous PRN Parul R Jeb, STABLE CLEANER-DOCTOR [employer]IC [employer]IC[employer] sodium chloride 0.9 % infusion 10 mL/hr intravenous Continuous PRN Parul R Jeb, STABLE CLEANER-DOCTOR [employer]IC [employer]IC[employer] sodium chloride 0.9 % infusion 10 mL/hr intravenous Continuous PRN Parul R Jeb, STABLE CLEANER-DOCTOR [employer]IC MEDIC[employer] Laboratory CBC: BMP: Troponin I Physical Exam [...] This note was completed using a voice circulation assistant system. Every effort was made to ensure accuracy. However, inadvertent computerized circulation assistant errors may be present. [employer] Work Phone: 10-14-2023 History and physical note HISTORY AND PHYSICAL INTERVAL NOTE: Ashvin Rene 1955 [id number] H&P reviewed. The patient was examined and there are no changes to the H&P. Alexi Freeman MD Source Note - Lenny Rodriguez MD - 10/12/2023 11:49 PM EDT Images from the original note were not included. [facility] [address] [place] [address] HISTORY & PHYSICAL / CONSULT NOTE Ashvin [...] found to be in CHF with proBNP 38559, HS trop 45911, and K 2.1 which was repleted but [...] Past Medical History: Diagnosis Date Angina pectoris ([facility]) Atherosclerosis of coronary artery bypass graft Atherosclerotic heart disease Coronary angioplasty status Coronary artery disease CVA (cerebral vascular accident) ([facility]) Dyspnea Hyperlipidemia Hypertension Hypotension Other chest pain Stroke ([facility]) Previous Surgical History: Past Surgical History: Procedure Laterality Date CARDIAC CATHETERIZATION Cardiac catheterization N/A 02/15/2023 Performed by Star Espinosa MD at [facility] Cardiac catheterization - LV cors w/graft check N/A 10/25/2020 Performed by Alexi Freeman MD at [facility] Coronary angiogram and graft/[place] N/A 02/15/2023 Performed by Star Espinosa MD at [facility] Coronary angiogram and left ventricular gram/pressure + graft/[place] N/A 10/25/2020 Performed by Alexi Freeman MD at [facility] Coronary angiogram and left ventricular gram/pressure + graft/[place] N/A 06/18/2016 Performed by Alexi Freeman MD at [facility] CORONARY ANGIOPLASTY 12/08/2020 orbital atherectomy and 2 HARRY to prox and distal Circ, at [facility] per Dr. Madhav Ugalde CORONARY ARTERY BYPASS GRAFT 09/08/2014 HYSTERECTOMY INSERTION LOOP RECORDER 05/24/2016 Percutaneous coronary angioplasty left circumflex N/A 02/15/2023 Performed by Star Espinosa MD at [facility] Stent drug-eluting left circumflex N/A 02/15/2023 Performed by Star Espinosa MD at [facility] Allergies: Allergies [...] Russ APRN-SUNIL [START ON 10/13/2023] heparin infusion 05664 units/500 mL in 0.45% NaCl (50 units/mL premix) 300-3,500 Units/hr intravenous Continuous Parul Russ APRN-SUNIL magnesium sulfate IVPB 2000 mg/50 mL in iso-osmotic water (40 mg/mL premix) 2,000 mg intravenous PRN Parul R Jeb, STABLE CLEANER-DOCTOR [employer]IC MEDICINE Or magnesium sulfate IVPB 4000 mg/100 mL in iso-osmotic water (40 mg/mL premix) 4,000 mg intravenous PRN Parul R Jeb, STABLE CLEANER-DOCTOR P[employer]IATRIC MEDICINE potassium chloride (K-TAB,KLOR-CON) CR tablet 20-50 mEq 20-50 mEq oral PRN Parul R Jeb, STABLE CLEANER-DOCTOR [employer]IC MEDICINE Or potassium chloride (KAYCIEL) 20 mEq/15 mL solution 20-50 mEq 20-50 mEq oral PRN Parul R Jeb, STABLE CLEANER-DOCTOR P[employer]IATRIC MEDICINE potassium chloride IVPB 10 mEq/50 mL in water (0.2 mEq/mL premix) 10 mEq intravenous PRN Parul R Jeb, STABLE CLEANER-DOCTOR [employer]RIC MEDICINE Or potassium chloride IVPB 10 mEq/100 mL in water (0.1 mEq/mL premix) 10 mEq intravenous PRN Parul R Jeb, STABLE CLEANER-DOCTOR P[employer]IATRIC MEDICINE sodium phosphate 20 mmol in sodium chloride 0.9 % 250 mL IVPB 20 mmol intravenous PRN Parul R Jeb, STABLE CLEANER-DOCTOR P[employer]IC MEDIC[employer] Or sodium phosphate 20 mmol in sodium chloride 0.9 % 100 mL IVPB 20 mmol intravenous PRN Parul R Jeb, STABLE CLEANER-DOCTOR P[employer]IC MEDICINE Or sod phos di, mono-K phos mono (K-PHOS NEUTRAL) 250 mg tablet 2 tablet 2 tablet oral PRN Parul R Jeb, STABLE CLEANER-DOCTOR P[employer]IATRIC MEDICINE sodium chloride 0.9 % infusion 10 mL/hr intravenous Continuous PRN Parul R Jeb, STABLE CLEANER-DOCTOR P[employer]RIC MEDICINE sodium chloride 0.9 % infusion 10 mL/hr intravenous Continuous PRN Parul R Jeb, STABLE CLEANER-DOCTOR P[employer]RIC MEDICINE sodium chloride 0.9 % infusion 10 mL/hr intravenous Continuous PRN Parul R Jeb, STABLE CLEANER-DOCTOR [employer]IC MEDICINE Home Meds: Prior to Admission medications Medication [...] be continued indefinitely given significant disease in [place] coronary arteries. Optimize medical therapy for coronary [...] be continued indefinitely given significant disease in [place] coronary arteries. Optimize medical therapy for coronary [...] data in the 24 hours ending 10/12/23 1699 General appearance: Alert oriented and cooperative, in [...] Acute on chronic HFrEF Elevated HS troponin 30005 ASCVD h/o CABG and s/p PCI Cx [...] 75 mg oral Daily Parul R Jeb, STABLE CLEANER-DOCTOR PODIATRIC MEDICINE dextrose (GLUTOSE) 40 % gel 15 g 15 g oral PRN Parul Russ, STABLE CLEANER-DOCTOR P[employer]IATRIC MEDICINE dextrose 5 % (D5W) infusion 100 mL/hr intravenous Continuous PRN Parul Russ, STABLE CLEANER-DOCTOR P[employer]RIC MEDICINE dextrose 50 % in water (D50W) 50% solution 25 mL 25 mL intravenous PRN Parul Hassann, STABLE CLEANER-DOCTOR P[employer]IATRIC MEDICINE glucagon HCL injection 1 mg 1 mg intramuscular PRN Parul Russ, STABLE CLEANER-DOCTOR P[employer]RIC MEDICINE heparin (porcine) injection 2,000 Units 2,000 Units intravenous PRN Parul Hassann, STABLE CLEANER-DOCTOR P[employer]IATRIC MEDICINE heparin infusion 50755 units/500 mL in 0.45% NaCl (50 units/mL premix) 300-3,500 Units/hr intravenous Continuous Parul Hassann, STABLE CLEANER-DOCTOR P[employer]RIC MEDICINE 16 mL/hr at 10/13/23 0013 800 Units/hr at 10/13/23 0013 magnesium sulfate IVPB 2000 mg/50 mL in iso-osmotic water (40 mg/mL premix) 2,000 mg intravenous PRN Parul Russ, STABLE CLEANER-DOCTOR P[employer]RIC MEDICINE Or magnesium sulfate IVPB 4000 mg/100 mL in iso-osmotic water (40 mg/mL premix) 4,000 mg intravenous PRN Parul Russ, STABLE CLEANER-DOCTOR PODIATRIC MEDICINE midodrine (PROAMATINE) tablet 5 mg 5 mg oral Q8H PRN Parul Russ, STABLE CLEANER-DOCTOR P[employer]IATRIC MEDICINE potassium chloride (K-TAB,KLOR-CON) CR tablet 20-50 mEq 20-50 mEq oral PRN Parul Russ, STABLE CLEANER-DOCTOR [employer]RIC MEDICINE Or potassium chloride (KAYCIEL) 20 mEq/15 mL solution 20-50 mEq 20-50 mEq oral PRN Parul Hassann, STABLE CLEANER-DOCTOR PODIATRIC MEDICINE potassium chloride IVPB 10 mEq/50 mL in water (0.2 mEq/mL premix) 10 mEq intravenous PRN Praul Holder Jeb, STABLE CLEANER-DOCTOR P[employer]RIC MEDICINE Or potassium chloride IVPB 10 mEq/100 mL in water (0.1 mEq/mL premix) 10 mEq intravenous PRN Parul Hassann, STABLE CLEANER-DOCTOR PODIATRIC MEDICINE ranolazine (RANEXA) 12 hr tablet 1,000 mg 1,000 mg oral BID Parul Hassann, STABLE CLEANER-DOCTOR P[employer]IATRIC MEDICINE rosuvastatin (CRESTOR) tablet 20 mg 20 mg oral Daily Parul R Jeb, STABLE CLEANER-DOCTOR P[employer]IATRIC MEDICINE sodium phosphate 20 mmol in sodium chloride 0.9 % 250 mL IVPB 20 mmol intravenous PRN Parul R Jeb, STABLE CLEANER-DOCTOR P[employer]RIC MEDICINE Or sodium phosphate 20 mmol in sodium chloride 0.9 % 100 mL IVPB 20 mmol intravenous PRN Parul R Jeb, STABLE CLEANER-DOCTOR P[employer]RIC MEDICINE Or sod phos di, mono-K phos mono (K-PHOS NEUTRAL) 250 mg tablet 2 tablet 2 tablet oral PRN Parul R Jeb, STABLE CLEANER-DOCTOR P[employer]IATRIC MEDICINE sodium chloride 0.9 % infusion 10 mL/hr intravenous Continuous PRN Parul R Jeb, STABLE CLEANER-DOCTOR P[employer]IATRIC MEDICINE sodium chloride 0.9 % infusion 10 mL/hr intravenous Continuous PRN Parul R Jeb, STABLE CLEANER-DOCTOR P[employer]IATRIC MEDICINE sodium chloride 0.9 % infusion 10 mL/hr intravenous Continuous PRN Parul R Jeb, STABLE CLEANER-DOCTOR P[employer]RIC MEDIC[employer] Laboratory CBC: BMP: Troponin I Physical Exam [...] This note was completed using a voice circulation assistant system. Every effort was made to ensure accuracy. However, inadvertent computerized circulation assistant errors may be present. Images from the original note were not included. [facility] [address] [place] [address] HISTORY & PHYSICAL / CONSULT NOTE Ashvin [...] found to be in CHF with proBNP 99345, HS trop 61770, and K 2.1 which was repleted but [...] Past Medical History: Diagnosis Date Angina pectoris ([facility]) Atherosclerosis of coronary artery bypass graft Atherosclerotic heart disease Coronary angioplasty status Coronary artery disease CVA (cerebral vascular accident) ([facility]) Dyspnea Hyperlipidemia Hypertension Hypotension Other chest pain Stroke ([facility]) Previous Surgical History: Past Surgical History: Procedure Laterality Date CARDIAC CATHETERIZATION Cardiac catheterization N/A 02/15/2023 Performed by Star Espinosa MD at [facility] Cardiac catheterization - LV cors w/graft check N/A 10/25/2020 Performed by Alexi Freeman MD at [facility] Coronary angiogram and graft/[place] N/A 02/15/2023 Performed by Star Espinosa MD at [facility] Coronary angiogram and left ventricular gram/pressure + graft/[place] N/A 10/25/2020 Performed by Alexi Freeman MD at [facility] Coronary angiogram and left ventricular gram/pressure + graft/[place] N/A 06/18/2016 Performed by Alexi Freeman MD at [facility] CORONARY ANGIOPLASTY 12/08/2020 orbital atherectomy and 2 HARRY to prox and distal Circ, at [facility] per Dr. Madhav Ugalde CORONARY ARTERY BYPASS GRAFT 09/08/2014 HYSTERECTOMY INSERTION LOOP RECORDER 05/24/2016 Percutaneous coronary angioplasty left circumflex N/A 02/15/2023 Performed by Star Espinosa MD at [facility] Stent drug-eluting left circumflex N/A 02/15/2023 Performed by Star Espinosa MD at [facility] Allergies: Allergies [...] mg/mL premix) 2,000 mg intravenous PRN CHER Rincno Or calcium gluconate 3,000 mg in sodium [...] CHER Rincon [START ON 10/13/2023] heparin infusion 97576 units/500 mL in 0.45% NaCl (50 units/mL premix) 300-3,500 Units/hr intravenous Continuous CHER Rincon magnesium sulfate IVPB 2000 mg/50 mL in iso-osmotic water (40 mg/mL premix) 2,000 mg intravenous PRN Parul R Jeb, STABLE CLEANER-DOCTOR [employer]RIC MEDICINE Or magnesium sulfate IVPB 4000 mg/100 mL in iso-osmotic water (40 mg/mL premix) 4,000 mg intravenous PRN Parul R Jeb, STABLE CLEANER-DOCTOR P[employer]IATRIC MEDICINE potassium chloride (K-TAB,KLOR-CON) CR tablet 20-50 mEq 20-50 mEq oral PRN Parul R Jeb, STABLE CLEANER-DOCTOR P[employer]RIC MEDICINE Or potassium chloride (KAYCIEL) 20 mEq/15 mL solution 20-50 mEq 20-50 mEq oral PRN Parul R Jeb, STABLE CLEANER-DOCTOR P[employer]IATRIC MEDICINE potassium chloride IVPB 10 mEq/50 mL in water (0.2 mEq/mL premix) 10 mEq intravenous PRN Parul R Jeb, STABLE CLEANER-DOCTOR P[employer]IATRIC MEDICINE Or potassium chloride IVPB 10 mEq/100 mL in water (0.1 mEq/mL premix) 10 mEq intravenous PRN Parul R Jeb, STABLE CLEANER-DOCTOR PODIATRIC MEDICINE sodium phosphate 20 mmol in sodium chloride 0.9 % 250 mL IVPB 20 mmol intravenous PRN Parul R Jeb, STABLE CLEANER-DOCTOR P[employer]IATRIC MEDICINE Or sodium phosphate 20 mmol in sodium chloride 0.9 % 100 mL IVPB 20 mmol intravenous PRN Parul R Jeb, STABLE CLEANER-DOCTOR PODIATRIC MEDICINE Or sod phos di, mono-K phos mono (K-PHOS NEUTRAL) 250 mg tablet 2 tablet 2 tablet oral PRN Parul R Jeb, STABLE CLEANER-DOCTOR PODIATRIC MEDICINE sodium chloride 0.9 % infusion 10 mL/hr intravenous Continuous PRN Parul R Jeb, STABLE CLEANER-DOCTOR PODIATRIC MEDICINE sodium chloride 0.9 % infusion 10 mL/hr intravenous Continuous PRN Parul R Jeb, STABLE CLEANER-DOCTOR PODIATRIC MEDICINE sodium chloride 0.9 % infusion 10 mL/hr intravenous Continuous PRN Parul R Jeb, STABLE CLEANER-DOCTOR P[employer]IATRIC MEDICINE Home Meds: Prior to Admission medications Medication [...] be continued indefinitely given significant disease in [place] coronary arteries. Optimize medical therapy for coronary [...] be continued indefinitely given significant disease in [place] coronary arteries. Optimize medical therapy for coronary [...] Acute on chronic HFrEF Elevated HS troponin 55105 ASCVD h/o CABG and s/p PCI Cx [...] 75 mg oral Daily Parul R Jeb, STABLE CLEANER-DOCTOR PODIATRIC MEDICINE dextrose (GLUTOSE) 40 % gel 15 g 15 g oral PRN Parul Hassann, STABLE CLEANER-DOCTOR PODIATRIC MEDICINE dextrose 5 % (D5W) infusion 100 mL/hr intravenous Continuous PRN Parul Hassann, STABLE CLEANER-DOCTOR P[employer]IATRIC MEDICINE dextrose 50 % in water (D50W) 50% solution 25 mL 25 mL intravenous PRN Parul Holder Jeb, STABLE CLEANER-DOCTOR PODIATRIC MEDICINE glucagon HCL injection 1 mg 1 mg intramuscular PRN Parul Holder Jeb, STABLE CLEANER-DOCTOR PODIATRIC MEDICINE heparin (porcine) injection 2,000 Units 2,000 Units intravenous PRN Parul R Jbe, STABLE CLEANER-DOCTOR PODIATRIC MEDICINE heparin infusion 60339 units/500 mL in 0.45% NaCl (50 units/mL premix) 300-3,500 Units/hr intravenous Continuous Parul R Jeb, STABLE CLEANER-DOCTOR P[employer]IATRIC MEDICINE 16 mL/hr at 10/13/23 0013 800 Units/hr at 10/13/23 0013 magnesium sulfate IVPB 2000 mg/50 mL in iso-osmotic water (40 mg/mL premix) 2,000 mg intravenous PRN Parul R Jeb, STABLE CLEANER-DOCTOR PODIATRIC MEDICINE Or magnesium sulfate IVPB 4000 mg/100 mL in iso-osmotic water (40 mg/mL premix) 4,000 mg intravenous PRN Parul Hassann, STABLE CLEANER-DOCTOR PODIATRIC MEDICINE midodrine (PROAMATINE) tablet 5 mg 5 mg oral Q8H PRN Parul Holder Jeb, STABLE CLEANER-DOCTOR PODIATRIC MEDICINE potassium chloride (K-TAB,KLOR-CON) CR tablet 20-50 mEq 20-50 mEq oral PRN Parul R Jeb, STABLE CLEANER-DOCTOR P[employer]IATRIC MEDICINE Or potassium chloride (KAYCIEL) 20 mEq/15 mL solution 20-50 mEq 20-50 mEq oral PRN Parul R Jeb, STABLE CLEANER-DOCTOR PODIATRIC MEDICINE potassium chloride IVPB 10 mEq/50 mL in water (0.2 mEq/mL premix) 10 mEq intravenous PRN Parul R Jeb, STABLE CLEANER-DOCTOR PODIATRIC MEDICINE Or potassium chloride IVPB 10 mEq/100 mL in water (0.1 mEq/mL premix) 10 mEq intravenous PRN Parul R Jeb, STABLE CLEANER-DOCTOR PODIATRIC MEDICINE ranolazine (RANEXA) 12 hr tablet 1,000 mg 1,000 mg oral BID Parul Mcdowellfern, STABLE CLEANER-DOCTOR PODIATRIC MEDICINE rosuvastatin (CRESTOR) tablet 20 mg 20 mg oral Daily Parul R Jeb, STABLE CLEANER-DOCTOR PODIATRIC MEDICINE sodium phosphate 20 mmol in sodium chloride 0.9 % 250 mL IVPB 20 mmol intravenous PRN Parul R Jbe, STABLE CLEANER-DOCTOR PODIATRIC MEDICINE Or sodium phosphate 20 mmol in sodium chloride 0.9 % 100 mL IVPB 20 mmol intravenous PRN Parul R Jeb, STABLE CLEANER-DOCTOR PODIATRIC MEDICINE Or sod phos di, mono-K phos mono (K-PHOS NEUTRAL) 250 mg tablet 2 tablet 2 tablet oral PRN Parul R Jeb, STABLE CLEANER-DOCTOR PODIATRIC MEDICINE sodium chloride 0.9 % infusion 10 mL/hr intravenous Continuous PRN Parul R Jeb, STABLE CLEANER-DOCTOR PODIATRIC MEDICINE sodium chloride 0.9 % infusion 10 mL/hr intravenous Continuous PRN Parul R Jeb, STABLE CLEANER-DOCTOR PODIATRIC MEDICINE sodium chloride 0.9 % infusion 10 mL/hr intravenous Continuous PRN Parul R Jeb, STABLE CLEANER-DOCTOR PODIATRIC MEDICINE Laboratory CBC: BMP: Troponin I Physical Exam [...] This note was completed using a voice circulation assistant system. Every effort was made to ensure accuracy. However, inadvertent computerized circulation assistant errors may be present. documented in this encounter [facility] 10-14-2023 Nurse Note Adjusted CathPCI Bleeding Event [...] is an appropriate candidate for the procedure. [facility] 10-13-2023 Plan of care note Problem: Pain Goal: Patient goal is pain score less than 4, able to rest, and participant in treatment plan as appropriate Description: INTERVENTIONS: 1. Encourage patient or legal delivery representative to report early pain and ask [...] per policy 9. Teach patient or legal delivery representative interventions for comforting Outcome: Progressing Note: [...] at the bedside 7. Instruct patient/ patient delivery representative about use of safety devices 8. Include patient/ patient delivery representative in decisions related to safety Outcome: [...] hygiene technique 7. Identify and instruct patient/patient delivery representative in use of appropriate isolation precautions for identified infection/symptoms 8. Provide and discuss with patient/patient delivery representative on educational MDRO sheet 9. Encourage and monitor nutritional status daily and consult ob/gyn nurse if indicated 10. Implement neutropenic guidelines as needed 11. Review exposure to history of communicable disease and recent travel history on admission 12. Encourage annual influenza vaccine 13. Encourage pneumonia vaccine Outcome: Progressing Note: Evaluation of progress towards goal: Patient afebrile and WBC of 5.3. Will continue to monitor for signs of infection Problem: Knowledge Deficit Goal: Patient/patient delivery representative demonstrates understanding of disease process, treatment [...] develop effective communication strategies 4. Include patient/patient delivery representative in decisions related to communication Outcome: [...] supplement as ordered 13. Collaborate with clinical ob/gyn nurse 14. Include patient/ patient's delivery representative in decisions related to nutrition Outcome: Progressing Note: Evaluation of progress towards goal: Collaborating with interdisciplinary team to ensure adequate nutritional intake. Problem: Moderate - High Risk Fall Score Description: Beal Fall Score of =/> 25 or indicated by [facility] Assessment Goal: Patient should be free from fall Description: Interventions: 1. [place] to environment 2. Hourly rounds addressing the [...] non-skid footwear 11. Teach patient and patient delivery representative to maintain environment for safety and [...] (cane, walker) within reach 19. Request patient delivery representative bring adaptive equipment/mobility aids from home or obtain and provide as needed 20. Consult pharmacy regarding effects of med's affecting mobility, cognition, and alternatives 21. Obtain physician order for PT if risk factors associated with mobility are present 22. Obtain physician order for OT as appropriate 23. Utilize diversional activities 24. Educate patient and patient delivery representative how to maintain a safe environment during visitation times (notify nurse prior to leaving bedside) 25. Consider appropriateness of medical or non-back office medical assistant 26. Set up voiding schedule as appropriate (every 2 hours) Outcome: Progressing Note: Evaluation of progress towards goal: Area clear of hazards. Bed locked and in lowest position. Side rails up. Hourly rounding complete. Pt remains free from falls at this time. [facility] 10-13-2023 Plan of care note Problem: Pain Goal: Patient goal is pain score less than 4, able to rest, and participant in treatment plan as appropriate Description: INTERVENTIONS: 1. Encourage patient or legal delivery representative to report early pain and ask [...] per policy 9. Teach patient or legal delivery representative interventions for comforting Outcome: Progressing Note: [...] at the bedside 7. Instruct patient/ patient delivery representative about use of safety devices 8. Include patient/ patient delivery representative in decisions related to safety Outcome: [...] hygiene technique 7. Identify and instruct patient/patient delivery representative in use of appropriate isolation precautions for identified infection/symptoms 8. Provide and discuss with patient/patient delivery representative on educational MDRO sheet 9. Encourage and monitor nutritional status daily and consult ob/gyn nurse if indicated 10. Implement neutropenic guidelines as needed 11. Review exposure to history of communicable disease and recent travel history on admission 12. Encourage annual influenza vaccine 13. Encourage pneumonia vaccine Outcome: Progressing Note: Evaluation of progress towards goal: Pt is afebrile at this time. Problem: Knowledge Deficit Goal: Patient/patient delivery representative demonstrates understanding of disease process, treatment [...] Score of =/> 25 or indicated by [facility] Assessment Goal: Patient should be free from fall Description: Interventions: 1. Stuart to environment 2. Hourly rounds addressing the [...] non-skid footwear 11. Teach patient and patient delivery representative to maintain environment for safety and [...] (cane, walker) within reach 19. Request patient delivery representative bring adaptive equipment/mobility aids from home or obtain and provide as needed 20. Consult pharmacy regarding effects of med's affecting mobility, cognition, and alternatives 21. Obtain physician order for PT if risk factors associated with mobility are present 22. Obtain physician order for OT as appropriate 23. Utilize diversional activities 24. Educate patient and patient delivery representative how to maintain a safe environment during visitation times (notify nurse prior to leaving bedside) 25. Consider appropriateness of medical or non-back office medical assistant 26. Set up voiding schedule as appropriate (every 2 hours) Outcome: Progressing Note: Evaluation of progress towards goal: Pt is free from falls at this time. [employer] 10-13-2023 Progress note Formatting of t his note might be different from the original. Pt comfortable. No chest pain. No sob on 2 L ECG without sig ST abn Tr 13 Continues on heparin/DAPT Ionized mg .24 NSTEMI 2. Acute on chronic heart failure Keep NPO as LHC may be considered Supplement mg before diuresing [facility] 10-13-2023 Plan of care note Problem: Pain Goal: Patient goal is pain score less than 4, able to rest, and participant in treatment plan as appropriate Description: INTERVENTIONS: 1. Encourage patient or legal delivery representative to report early pain and ask [...] per policy 9. Teach patient or legal delivery representative interventions for comforting Outcome: Progressing Note: [...] at the bedside 7. Instruct patient/ patient delivery representative about use of safety devices 8. Include patient/ patient delivery representative in decisions related to safety Outcome: [...] hygiene technique 7. Identify and instruct patient/patient delivery representative in use of appropriate isolation precautions for identified infection/symptoms 8. Provide and discuss with patient/patient delivery representative on educational MDRO sheet 9. Encourage and monitor nutritional status daily and consult ob/gyn nurse if indicated 10. Implement neutropenic guidelines as needed 11. Review exposure to history of communicable disease and recent travel history on admission 12. Encourage annual influenza vaccine 13. Encourage pneumonia vaccine Outcome: Progressing Note: Evaluation of progress towards goal: Pt afebrile and no outward signs of infection during shift. Problem: Knowledge Deficit Goal: Patient/patient delivery representative demonstrates understanding of disease process, treatment [...] develop effective communication strategies 4. Include patient/patient delivery representative in decisions related to communication Outcome: [...] Collaborate with ancillary departments 14. Include patient/patient delivery representative in decisions related to anxiety Outcome: [...] providing care 6. Collaborate with pastoral/spiritual care, social work faculty member, mental health counselor as needed. 7. Instruct patient on diversional activities such as physical activity, distraction, and deep breathing exercises to assist with coping 8. Involve patient's delivery representative in care Outcome: Progressing Note: Evaluation [...] supplement as ordered 13. Collaborate with clinical ob/gyn nurse 14. Include patient/ patient's delivery representative in decisions related to nutrition Outcome: [...] Score of =/> 25 or indicated by [facility] Assessment Goal: Patient should be free from fall Description: Interventions: 1. Stuart to environment 2. Hourly rounds addressing the [...] non-skid footwear 11. Teach patient and patient delivery representative to maintain environment for safety and [...] (cane, walker) within reach 19. Request patient delivery representative bring adaptive equipment/mobility aids from home or obtain and provide as needed 20. Consult pharmacy regarding effects of med's affecting mobility, cognition, and alternatives 21. Obtain physician order for PT if risk factors associated with mobility are present 22. Obtain physician order for OT as appropriate 23. Utilize diversional activities 24. Educate patient and patient delivery representative how to maintain a safe environment during visitation times (notify nurse prior to leaving bedside) 25. Consider appropriateness of medical or non-back office medical assistant 26. Set up voiding schedule as appropriate (every 2 hours) Outcome: Progressing Note: Evaluation of progress towards goal: No signs of falls during shift. [facility] 10-12-2023 History and physical note Images from the original note were not included. [facility] [address] [place] [address] HISTORY & PHYSICAL / CONSULT NOTE Ashvin [...] found to be in CHF with proBNP 93361, HS trop 15988, and K 2.1 which was repleted but [...] started on Heparin gtt and transferred to [facility]. She states she feels better now and denies CP SOB. Previous Medical History: Past Medical History: Diagnosis Date Angina pectoris ([facility]) Atherosclerosis of coronary artery bypass graft Atherosclerotic heart disease Coronary angioplasty status Coronary artery disease CVA (cerebral vascular accident) ([facility]) Dyspnea Hyperlipidemia Hypertension Hypotension Other chest pain Stroke ([facility]) Previous Surgical History: Past Surgical History: Procedure Laterality Date CARDIAC CATHETERIZATION Cardiac catheterization N/A 02/15/2023 Performed by Star Espinosa MD at [facility] CARDIAC CATH LABS Cardiac catheterization - LV cors w/graft check N/A 10/25/2020 Performed by Alexi Freeman MD at [facility] CARDIAC CATH [facility]S Coronary angiogram and graft/[place] N/A 02/15/2023 Performed by Star Espinosa MD at [facility] CARDI[facility] CATH [facility]S Coronary angiogram and left ventricular gram/pressure + graft/[place] N/A 10/25/2020 Performed by Alexi Freeman MD at [facility] CARDIAC CATH [facility]S Coronary angiogram and left ventricular gram/pressure + graft/[place] N/A 06/18/2016 Performed by Alexi Freeman MD at [facility] CARDI[facility] CATH [facility]S CORONARY ANGIOPLASTY 12/08/2020 orbital atherectomy and 2 HARRY to prox and distal Circ, at [facility] per Dr. Madhav Ugalde CORONARY ARTERY BYPASS GRAFT 09/08/2014 HYSTERECTOMY INSERTION LOOP RECORDER 05/24/2016 Percutaneous coronary angioplasty left circumflex N/A 02/15/2023 Performed by Star Espinosa MD at [facility]ATH [facility] Stent drug-eluting left circumflex N/A 02/15/2023 Performed by Star Espinosa MD at [facility]ATH [facility] Allergies: Allergies Allergen Reactions Aspirin-Dipyridamole aggronox Atorvastatin Hives lipitor Cefadroxil duricef Codeine Fenofibrate Micronized tricor Fluvoxamine luvox Nefazodone serzone Niacin Other reaction(s): Intolerance-unknown Hospital Meds: Current Facility-Administered Medications Medication Dose Route Frequency Provider Last Rate Last Admin calcium gluconate IVPB 1000 mg/50 mL (20 mg/mL premix) 1,000 mg intravenous PRN Parul R Jeb, STABLE CLEANER-DOCTOR PODIATRIC MEDICINE Or calcium gluconate IVPB 2000 mg/100 mL (20 mg/mL premix) 2,000 mg intravenous PRN Parul R Jeb, STABLE CLEANER[employer]DOCTOR [employer]IATRIC MEDICINE Or calcium gluconate 3,000 mg in sodium chloride 0.9 % 100 mL IVPB 3,000 mg intravenous PRN Parul Holder Jeb, STABLE CLEANER-DOCTOR PODIATRIC MEDICINE dextrose (GLUTOSE) 40 % gel 15 g 15 g oral PRN Parul Hassann, STABLE CLEANER[employer]DOCTOR P[employer]IATRIC MEDICINE dextrose 5 % (D5W) infusion 100 mL/hr intravenous Continuous PRN Parul Holder Jeb, STABLE CLEANER-DOCTOR P[employer]IATRIC MEDICINE dextrose 50 % in water (D50W) 50% solution 25 mL 25 mL intravenous PRN Parul Russ, STABLE CLEANER-DOCTOR P[employer]IATRIC MEDICINE glucagon HCL injection 1 mg 1 mg intramuscular PRN Parul Russ, STABLE CLEANER-DOCTOR PODIATRIC MEDICINE heparin (porcine) injection 2,000 Units 2,000 Units intravenous PRN Parul Hassann, STABLE CLEANER-DOCTOR [employer]RIC MEDICINE [START ON 10/13/2023] heparin infusion 85208 units/500 mL in 0.45% NaCl (50 units/mL premix) 300-3,500 Units/hr intravenous Continuous Parul Russ, STABLE CLEANER-DOCTOR PODIATRIC MEDICINE magnesium sulfate IVPB 2000 mg/50 mL in iso-osmotic water (40 mg/mL premix) 2,000 mg intravenous PRN Parul R Jeb, STABLE CLEANER-DOCTOR PODIATRIC MEDICINE Or magnesium sulfate IVPB 4000 mg/100 mL in iso-osmotic water (40 mg/mL premix) 4,000 mg intravenous PRN Parul R Jeb, STABLE CLEANER-DOCTOR PODIATRIC MEDICINE potassium chloride (K-TAB,KLOR-CON) CR tablet 20-50 mEq 20-50 mEq oral PRN Parul R Jeb, STABLE CLEANER-DOCTOR P[employer]IATRIC MEDICINE Or potassium chloride (KAYCIEL) 20 mEq/15 mL solution 20-50 mEq 20-50 mEq oral PRN Parul R Jeb, STABLE CLEANER-DOCTOR PODIATRIC MEDICINE potassium chloride IVPB 10 mEq/50 mL in water (0.2 mEq/mL premix) 10 mEq intravenous PRN Parul R Jeb, STABLE CLEANER-DOCTOR PODIATRIC MEDICINE Or potassium chloride IVPB 10 mEq/100 mL in water (0.1 mEq/mL premix) 10 mEq intravenous PRN Parul R Jeb, STABLE CLEANER-DOCTOR PODIATRIC MEDICINE sodium phosphate 20 mmol in sodium chloride 0.9 % 250 mL IVPB 20 mmol intravenous PRN Parul R Jeb, STABLE CLEANER-DOCTOR P[employer]IATRIC MEDICINE Or sodium phosphate 20 mmol in sodium chloride 0.9 % 100 mL IVPB 20 mmol intravenous PRN Parul R Jeb, STABLE CLEANER-DOCTOR P[employer]IATRIC MEDICINE Or sod phos di, mono-K phos mono (K-PHOS NEUTRAL) 250 mg tablet 2 tablet 2 tablet oral PRN Parul R Jeb, STABLE CLEANER-DOCTOR PODIATRIC MEDICINE sodium chloride 0.9 % infusion 10 mL/hr intravenous Continuous PRN Parul R Jeb, STABLE CLEANER-DOCTOR PODIATRIC MEDICINE sodium chloride 0.9 % infusion 10 mL/hr intravenous Continuous PRN Parul R Jeb, STABLE CLEANER-DOCTOR P[employer]IATRIC MEDICINE sodium chloride 0.9 % infusion 10 mL/hr intravenous Continuous PRN Parul R Jeb, STABLE CLEANER[employer]DOCTOR [employer]RIC MEDICINE Home Meds: Prior to Admission medications Medication [...] be continued indefinitely given significant disease in [place] coronary arteries. Optimize medical therapy for coronary [...] be continued indefinitely given significant disease in [place] coronary arteries. Optimize medical therapy for coronary [...] Acute on chronic HFrEF Elevated HS troponin 58920 ASCVD h/o CABG and s/p PCI Cx [...] 2,000 Units intravenous PRN Parul R Jeb, STABLE CLEANER-DOCTOR PODIATRIC MEDICINE heparin infusion 22656 units/500 mL in 0.45% NaCl (50 units/mL premix) 300-3,500 Units/hr intravenous Continuous Parul R Jeb, STABLE CLEANER-DOCTOR [employer]IATRIC MEDICINE 16 mL/hr at 10/13/23 0013 800 Units/hr at 10/13/23 0013 magnesium sulfate IVPB 2000 mg/50 mL in iso-osmotic water (40 mg/mL premix) 2,000 mg intravenous PRN Parul R Jeb, STABLE CLEANER-DOCTOR P[employer]RIC MEDICINE Or magnesium sulfate IVPB 4000 mg/100 mL in iso-osmotic water (40 mg/mL premix) 4,000 mg intravenous PRN Parul R Jeb, STABLE CLEANER-DOCTOR PODIATRIC MEDICINE midodrine (PROAMATINE) tablet 5 mg 5 mg oral Q8H PRN Parul R Jeb, STABLE CLEANER-DOCTOR PODIATRIC MEDICINE potassium chloride (K-TAB,KLOR-CON) CR tablet 20-50 mEq 20-50 mEq oral PRN Parul R Jeb, STABLE CLEANER-DOCTOR PODIATRIC MEDICINE Or potassium chloride (KAYCIEL) 20 mEq/15 mL solution 20-50 mEq 20-50 mEq oral PRN Parul R Jeb, STABLE CLEANER-DOCTOR PODIATRIC MEDICINE potassium chloride IVPB 10 mEq/50 mL in water (0.2 mEq/mL premix) 10 mEq intravenous PRN Parul R Jeb, STABLE CLEANER-DOCTOR PODIATRIC MEDICINE Or potassium chloride IVPB 10 mEq/100 mL in water (0.1 mEq/mL premix) 10 mEq intravenous PRN Parul R Jeb, STABLE CLEANER-DOCTOR PODIATRIC MEDICINE ranolazine (RANEXA) 12 hr tablet 1,000 mg 1,000 mg oral BID Parul R Jeb, STABLE CLEANER-DOCTOR PODIATRIC MEDICINE rosuvastatin (CRESTOR) tablet 20 mg 20 mg oral Daily Parul R Jeb, STABLE CLEANER-DOCTOR PODIATRIC MEDICINE sodium phosphate 20 mmol in sodium chloride 0.9 % 250 mL IVPB 20 mmol intravenous PRN Parul R Jeb, STABLE CLEANER-DOCTOR PODIATRIC MEDICINE Or sodium phosphate 20 mmol in sodium chloride 0.9 % 100 mL IVPB 20 mmol intravenous PRN Parul R Jeb, STABLE CLEANER-DOCTOR PODIATRIC MEDICINE Or sod phos di, mono-K phos mono (K-PHOS NEUTRAL) 250 mg tablet 2 tablet 2 tablet oral PRN Parul R Jeb, STABLE CLEANER-DOCTOR PODIATRIC MEDICINE sodium chloride 0.9 % infusion 10 mL/hr intravenous Continuous PRN Parul Hassann, STABLE CLEANER-DOCTOR PODIATRIC MEDICINE sodium chloride 0.9 % infusion 10 mL/hr intravenous Continuous PRN Parul R Jeb, STABLE CLEANER-DOCTOR PODIATRIC MEDICINE sodium chloride 0.9 % infusion 10 mL/hr intravenous Continuous PRN Parul R Jeb, STABLE CLEANER-DOCTOR PODIATRIC MEDICINE Laboratory CBC: BMP: Troponin I Physical Exam [...] This note was completed using a voice circulation assistant system. Every effort was made to ensure accuracy. However, inadvertent computerized circulation assistant errors may be present. [employer] [facility] Work Phone: 10-12-2023 History of Present illness Narrative Images from the original note were not included. [facility] Significant Event Note I am on-call covering for my group today. I am at [facility]. This patient presented to the ER at [facility]. I was paged, called back promptly, spoke to ER provider, reviewed EMR, discussed case, provided recommendations as detailed below. Subjective: 67 year old patient presented to the ER at [facility] with generalized weakness and malaise and shortness [...] of 35-40% Atherosclerotic heart disease of the [place] coronary arteries with stable angina pectoris History of CABG and subsequent HARRY Profound hypokalemia 2.1 in the ER at [facility] receiving replacements COVID test was negative at [facility] Given profound hypokalemia and risk for spontaneous malignant arrhythmia recommend admission to the ICU or CCU Access transfer team is working on the transfer arrangements and logistics as well as bed availability here at [facility] Recommend to the ER that patient needs to receive ICU dosing oral and IV potassium to replenish her total body potassium depletion She is on torsemide at home and she will need to be on a potassium supplement She will receive anti heart failure therapies while here in [facility] as well as medical therapy for CAD and cardiomyopathy I discussed with ER provider and access transfer team as well as updated the night team covering here at [facility] and the arrangements have been made for patient to be transferred pending the logistics and bed availability Please contact our cardiology service if any changes in patient's status overnight Thank you Jonathan Pizarro DO, FACC, FACOI This note was completed using a voice circulation assistant system. Every effort was made to ensure accuracy. However, inadvertent computerized circulation assistant errors may be present. documented in this encounter [facility] 08-22-2023 Telephone encounter Note Patient left message [...] need a different prescription sent in. [facility] 08-22-2023 Miscellaneous Notes Patient left message on [...] prescription sent in. documented in this encounter [facility] 08-21-2023 History of Present illness Narrative Reason [...] Bilateral FRANCIS/PVR study performed on 05-29-2023 at [facility] showed: FRANCIS is falsely elevated suggesting medial [...] 2-5 bilateral are flexible/reducible. SHOE GEAR EVALUATION: [employer] shoes. X-ray: Foot: 04-08-2023: LEFT FOOT x-rays, [...] decisions I made. documented in this encounter [facility] 08-04-2023 Evaluation note Encounter Date Diagnosis Assessment Notes Jul, PAD (peripheral artery disease) (ICD-10 - I73.9) We reviewed her noninvasive arterial studies obtained at outside facility and [facility] in [place] which indicate mild to moderate arterial disease [...] - I96) Jul, Non-smoker (ICD-10 - Z78.9) [facility] Other 12-13-2023 History of Present illness Narrative* Kimberly Wright - 06/25/2023 10:40 AM EST Ortho Nurse - Established Patient Intake Room#: 1 --- COOPERATIVE EDUCATION DIRECTOR for Left knee/leg pain. Hip surgery was [...] 06/25/2023 11:28 AM Patient: Ashvin Rene MR#: [id number] : 1955 Age: 67 y.o. Referring Physician: [...] capsule by mouth daily. Ergocalciferol 1.25 MG (89861 UT) capsule Take 1 capsule by mouth [...] 06/25/2023 11:28 AM Patient: Ashvin Rene MR#: [id number] : 1955 Age: 67 y.o. Referring Physician: [...] [x]cane, []bracing Are you followed by a engraver signature? [x] [] Name: Dr. Ryan Gordon Are [...] capsule by mouth daily. Ergocalciferol 1.25 MG (57583 UT) capsule Take 1 capsule by mouth [...] daily., Disp: , Rfl: Ergocalciferol 1.25 MG (69314 UT) capsule, Take 1 capsule by mouth [...] Rfl: No Known [facility]ies [facility]* Encounter Date Diagnosis Assessment [...] Other Skin wound mate roque was printed [employer] Other 02-02-2022 Note [id number]02-01-2022 NoteEducation Materials Obstetrics and Gynecology Edema [...] fluid you drink (fluid restriction). ? Take [id number] and prescription medicines only as told by [...] provider. Document Revised: 07/03/2018 Document Reviewed: 07/18/2017 [employer] Patient Education ? 2019 [id number] Note [facility] Clinical Discharge Summary PERSON INFORMATION Name ASHVIN RENE Age 65 Years 1955 Sex FEMALE Language Slovak PCP TUSHAR SOLANO JR. Marital Status Med Service Med/Surg Acct# Arrival 08/06/2021 17:10:50 Visit Reason ANEMIA, ELEVATED TROPONIN Acuity LOS 007 15:53 Address: [address] [place] [address] Comment: PROVIDER INFORMATION VITALS INFORMATION Vital Sign [...] Medication List: New Medications [facility], [address] [place] [address] [phone], [phone] ferrous sulfate (ferrous sulfate 325 mg (65 mg elemental iron) oral tablet) 1 tab(s) Oral 2 times aday for 30 Days. Refills: 1. torsemide (torsemide 20 mg oral tablet) 1 tab(s) Oral every other day for 30 Days. [facility] Refills: 1. Medications That Were Updated - Follow Below Instructions Other Medications Updated: fludrocortisone (fludrocortisone 0.1 mg oral tablet) 0.5 tab(s) Oral every day. TAKE IN MORNING MEAL, HOLD IF STANDING BP [id number]. Medications to Continue That Have Not Changed [...] mg oral tablet) potassium chloride (Potassium Chloride (Rdt-Zejh-Voj 10) 10 mEq oral tablet, extended release) [...] range between ( 1.3 and 2.9 ) [place] Abs#: 0.4 x103/mcL -- Normal range between ( 0.0 and 0.8 ) Auto Baso %: 1.0 % -- Normal range between ( 0.2 and 2.0 ) Auto [place] %: 7 % -- Normal range between [...] ( 101 and 111 (more content not included)...[id number] NoteDATE OF PROCEDURE: 08/10/2021 SURGEON: Noe Reed MD ANESTHESIA: Rony Ordonez MD ([facility]) PREOPERATIVE DIAGNOSIS: GI-bleed. POSTOPERATIVE [...] well. She will be returned to the [address] [place] [address] floor. We will await the pathology results. Noe Reed M.D. JOB #: [id number] CC: Tushar Solano MD [Electronically Signed on: 08/22/2021 08:54 EST] Noe Reed MD [Verified on: 08/22/2021 08:54 EST] Noe Reed MD [Transcribed on: 08/10/2021 12:12 EST] [facility]09-30-2021 Evaluation note* Encounter Date Diagnosis Assessment Notes Treatment Notes Treatment Clinical Notes Mar, Nausea & vomiting (ICD-10 - R11.2) Nausea and vomiting: adult material was printed Mar, Epigastric pain (ICD-10 - R10.13) [facility] Other 05-28-2021 NoteHNO ID: [id number] Author: Jaimee Pierce RN Service: Care Management [...] 08, 2020 TIME: 10:58 AM PAGER/CONTACT #: [phone] NoteHNO ID: [id number] Author: Jaimee Pierce RN Service: Care Management [...] 08, 2020 TIME: 9:57 AM PAGER/CONTACT #: [phone] [facility]-2021 NoteHNO ID: [id number] Author: Nay Joseph MD Service: ? Author [...] No further targets for coronary revascularization. 2. senior living [facility] STAFF PHYSICIAN: Dirk Joseph MD DATE OF SERVICE: 12/07/2020 TIME OF SERVICE: 6:19 PM (Procedure performed with Dr. Milli Foster and Dr. Erika Kohler)[facility] NoteProcedure (CATHMN) CLINTONASHVIN ([id number]) 1955 F Date Time Provider Department 12/07/20 NYA JOSEPH During your visit today, we recorded [...] Could not cross stenoses with [employer] or [employer] flex 135 mm microcatheters. 7Fr Telescope guide [...] No further targets for coronary revascularization. 2. senior living [facility] STAFF PHYSICIAN: Dirk Joseph MD DATE OF SERVICE: 12/07/2020 TIME OF SERVICE: 6:19 PM (Procedure performed with Dr. Milli Foster and Dr. Erika Kohler) Allergies As of Date: 12/07/2020 Noted Allergy Reaction CODEINE 11/24/2020 1 - Mental Status Change 4 - Hives Date Reviewed: 11/24/2020 Reviewed by: Demetra Guadalupe RN - Fully Assessed Primary Visit Diagnosis:Coronary artery disease of [place] artery of [place] heart with stable angina pectoris (HCC) [I25.118] [...] 12/07/2020 Noted Resolved Coronary artery disease of [place] artery of otilio*11/24/2020 S/P CABG (coronary artery bypass graft) [Z95.1] 11/24/2020 Pure hypercholesterolemia [E78.00] (more content not included)... [facility]-2021 NoteHNO ID: [id number] Author: Milli Foster MD Service: Cardiovascular Medicine [...] across the lesion- we tried with a [employer] flex microcatheter which would also not cross [...] Milli Foster MD Fellow, Interventional Cardiology Pager: [phone] 12/08/2020 11:34 [facility]05-14-2021 NoteHNO ID: [id number] Author: Nay Joseph MD Service: ? Author Type: Physician Type: Progress Notes Filed: 11/29/2020 7:54 AM Note Text: [facility] [place] Serena Beck Department of Cardiovascular Medicine SECTION OF INTERVENTIONAL CARDIOLOGY OUTPATIENT VISIT DATE November 23, 2020 OUTPATIENT VISIT TYPE NEW PRIMARY CARE PHYSICIAN: Tushar Solano Jr, DO ([facility]) [address] [place] [address] [place] [address] REFERRING PHYSICIAN: Waqas Mabry MD [address] [place] [address] [facility] [address] CHIEF COMPLAINT: No chief complaint on file. [...] resolved after CABG) 2016 CVA and (?) OK 05/24/16 Echo ? Normal left ventricular end-diastolic [...] area of anterior/anterolateral (more content not included)... [facility]04-29-2021 Miscellaneous Notes* Telephone Encounter - Ashvin Diaz - 11/09/2020 10:10 AM EDT Patient: Ashvin Rene Date of : 1955 Patient phone number: [phone] Referring Provider for the encounter: Dr Waqas Mabry Requesting Provider: Cardiology Reason for requesting visit (RFV/signs and symptoms/diagnosis): 2nd Opinion - Severe CAD Person calling: caregiver: ERIC Return call to: self Medical Records/Insurance Card scanned into [email or web address]: Yes Comments: N/A [facility] note[facility] InformationNort Kabooza Other Evaluation noteNo assessment information available [facility] Work Phone: Evaluation note* Diagnosis Left knee pain, unspecified chronicity- Primary [facility] 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)- Primary Gangrene (CMS/HCC) Gangrene Pain in toe of right foot Pain in soft tissues of limb Arteriosclerosis of arteries of extremities (CMS/HCC) documented in this encounter [facility] HealthcareEvaluation note* Diagnosis Stenosis of left carotid artery Occlusion and stenosis of carotid artery without mention of cerebral infarction Stenosis of left carotid artery- Primary Occlusion and stenosis of carotid artery without mention of cerebral infarction [facility] Diagnosis Decompensated heart failure (CMS-HCC)- Primary NSTEMI (non-ST elevated myocardial infarction) (CMS-HCC) Acute myocardial infarction, subendocardial infarction, episode of care unspecified Decompensated heart failure (CMS-HCC) NSTEMI (non-ST elevated myocardial infarction) (CMS-HCC) Acute myocardial infarction, subendocardial infarction, episode of care unspecified NSTEMI (non-ST elevated myocardial infarction) ([facility]-HCC) Acute myocardial infarction, subendocardial infarction, episode of care unspecified [facility] Narrative - Reported* Type Description Date Medical History Cholesterol Medical History heart disease Medical History hypertension Surgical History left hip Surgical History stomach Surgical History heart stent Surgical History bypass Surgical History gastric bypass Hospitalization History see above [place] Other InstructionsNot on filedocumented in this encounter [facility] filedocumented in this encounter [facility]Reason for referral (narrative)* Consultation (Routine) - Pending Review Specialty Diagnoses / Procedures Referred By Teofilo serrato Referred To Contact Cardiology Diagnoses NSTEMI (non-ST elevated myocardial infarction) ([facility]-HCC) Decompensated heart failure ([facility]-HCC) Kallie Roman MD [address] [place] [address] [facility] Cardiology [address] [place] [address] Referral ID Status Reason Start Date Expiration Date Visits Requested Visits Authorized [id number] Pending Review Specialty Services Required 10/15/2023 10/14/2024 1 1 * Misc (Routine) - Pending Review Specialty Diagnoses / Procedures Referred By Contac t Referred To Contact Procedures Discharge Follow-Up Kallie Roman MD [address], [address] [place] [address] Referral ID Status Reason Start Date Expiration Date V isits Requested Visits Authorized [id number] Pending Review 10/15/2023 10/14/2024 1 1 * Misc (Routine) - Pending Review Specialty Diagnoses / Procedures Referred By Contac t Referred To Contact Diagnoses NSTEMI (non-ST elevated myocardial infarction) ([facility]-HCC) Decompensated heart failure ([facility]-H[facility]) Procedures Follow-up with primary care provider Kallie Roman MD [address], [address] [place] [address] Referral ID Status Reason Start Date Expiration Date V isits Requested Visits Authorized [id number] Pending Review 10/15/2023 10/14/2024 1 1 * Misc (Routine) - Pending Review Specialty Diagnoses / Procedures Referred By Contac t Referred To Contact Procedures No dressing needed Kallie Roman MD [address], [address] [place] [address] Referral ID Status Reason Start Date Expiration Date V isits Requested Visits Authorized [id number] Pending Review 10/15/2023 10/14/2024 1 1 * Misc (Routine) - Pending Review Specialty Diagnoses / Procedures Referred By Contac t Referred To Contact Procedures Adult diet Kallie Roman MD [address], [address] [place] [address] Referral ID Status Reason Start Date Expiration Date V isits Requested Visits Authorized [id number] Pending Review 10/15/2023 10/14/2024 1 1 [facility] Advance Directives No Advanced Directives Records Found [...] worsening of your eyesight. Please call your marketing content specialist during normal business hours. If after business hours call Dr. Deng Humphreys at his cell [phone] or his office [phone]. Summary Purpose Reason for Referral Specialty Diagnoses / Procedures Referred By Teofilo serrato Referred To Contact Diagnoses Stenosis of left carotid artery Procedures Vas carotid duplex bilateral Mariama Veras MD [facility] [address] [place] [address] [address] Phone: [phone] Referral ID Status Reason Start Date Expiration Date Visits Re quested Visits Authorized [id number] Closed 10/06/2023 10/05/2024 1 1 Specialty Diagnoses / Procedures Referred By Teofilo serrato Referred To Contact Diagnoses Left knee pain, unspecified chronicity Norman Braga MD [address] [place] [address] Referral ID Status Reason Start Date Expiration Date V isits Requested Visits Authorized [id number] New Request 06/25/2023 07/19/2024 1 1 Scheduling Instructions . Specialty Diagnoses / Procedures Referred By Teofilo serrato Referred To Contact Diagnoses Left knee pain, unspecified chronicity Procedures XR KNEE LEFT 4+ VIEWS Norman Braga MD [address] [place] [address] Referral ID Status Reason Start Date Expiration Date V isits Requested Visits Authorized [id number] Pending Review 06/18/2023 07/12/2024 1 1 Specialty Diagnoses / Procedures Referred By Teofilo serrato Referred To Contact Diagnoses Left knee pain, unspecified chronicity Procedures XR BONE LENGTH STUDY Norman Braga MD [address] [place] [address] Referral ID Status Reason Start Date Expiration Date V isits Requested Visits Authorized [id number] Pending Review 06/18/2023 07/12/2024 1 1 Additional Source Comments Source Comments (unrecognize d section and content) In the event this informatio n is protected by the Federal Confidentiality of Alcohol and Drug Abuse Patient Records regulations: The Federal rules restrict any use of the information to criminally investigate or prosecute any alcohol or drug abuse patient.[facility] Reason for Visit (unrecogniz ed section and content) Reason Comments External Referrals/resources Specialty Diagnoses / Procedures Referred By Contac t Referred To Contact Diagnoses Left knee pain, unspecified chronicity Procedures XR BONE LENGTH STUDY Norman Braga MD [address] [place] [address] Referral ID Status Reason Start Date Expiration Date V isits Requested Visits Authorized [id number] Pending Review 06/18/2023 07/12/2024 1 1 Reason Comments Pain Reason Onset Date Comments Santyl 08/22/2023 Specialty Diagnoses / Procedures Referred By Contac t Referred To Contact Diagnoses Decompensated heart failure (CMS-HCC) CHF (congestive heart failure) (CMS-HCC) Decompensated Heart Failure, Severe Hypokalemia Jonathan Pizarro DO [address] [place] [address] Referral ID Status Reason Start Date Expiration Date Visits Re quested Visits Authorized [id number] 1 1 INFORMATION SOURCE (unrecogn ized section and content) DATE CREATED AUTHOR 03/12/2021 [facility] DATE CREATED AUTHOR AUTHOR'S ORGANIZ ATION 08/13/2021 [facility] DATE CREATED AUTHOR AUTHOR'S ORGANIZ ATION 09/26/2021 [facility] DATE CREATED AUTHOR AUTHOR'S ORGANIZ ATION 10/20/2022 [facility] DATE CREATED AUTHOR AUTHOR'S ORGANIZ ATION 07/04/2023 [facility] DATE CREATED AUTHOR AUTHOR'S ORGANIZ ATION 08/20/2023 [facility] DATE CREATED AUTHOR AUTHOR'S ORGANIZ ATION 08/22/2023 [facility] EPIC DATE CREATED AUTHOR AUTHOR'S ORGANIZ ATION 10/16/2023 [facility] DATE CREATED AUTHOR AUTHOR'S ORGANIZ ATION 10/18/2023 [facility] DATE CREATED AUTHOR AUTHOR'S ORGANIZ ATION 10/25/2023 [facility] Care Teams (unrecognized sec tion and [...] Provider Active ZAC Renae Attending Provider Active Jewelry Designer Relationship Specialty Start Date End Date Tushar Solano Jr., DO [address] [place] [address] PCP - General Internal Medicine 05/28/23 Jewelry Designer Relationship Specialty Start Date End Date Tushar Solano Jr., DO [address] [place] [address] PCP - General Internal Medicine 05/28/23 Jewelry Designer Relationship Specialty Start Date End Date Tushar Solano MD [address] [place] [address] PCP - General Internal Medicine 04/08/23 Jewelry Designer Relationship Specialty Start Date End Date Tushar Solano MD [address] [place] [address] PCP - General Internal Medicine 04/08/23 Jewelry Designer Relationship Specialty Start Date End Date Tushar Solano MD [address] [place] [address] PCP - General Internal Medicine 04/08/23 Jewelry Designer Relationship Specialty Start Date End Date Tushar Solano Jr., DO [address] [place] [address] PCP - General Internal Medicine 05/24/16 Jewelry Designer Relationship Specialty Start Date End Date Tushar Solano Jr., DO [address] [place] [address] [id number] PCP - General Internal Medicine 05/24/16 Jewelry Designer Relationship Specialty Start Date End Date Tushar Solano Jr., DO [address] [place] [address] [id number] PCP - General Internal Medicine 05/24/16 Goals [...] Medication Order 10/13/2023 10/14/2023 10/15/2023 heparin infusion 63877 units/500 mL in 0.45% NaCl (50 units/mL [...] RN)0852 (SEP Unhold - Provider: Wil Boyce APRN-DOCTOR PODIATRIC MEDICINE)0900 (Stop Bag - Provider: Gely Chua RN - Comment: off in laboratory immunologist) PRN Medication Order 10/13/2023 10/14/2023 10/15/2023 acetaminophen [...] RN)2355 (See Alternative - Provider: Sae Santiago, MCIAH) dextrose (GLUTOSE) 40 % gel 15 g 15 g, oral, As needed, low blood sugar, blood glucose less than 70 mg/dL, Starting on 10/12/23 at 2321, If patient conscious and taking PO. If blood glucose is not greater than 70 mg/dL after initial treatment, repeat treatment. 0729 ([facility] Hold - Provider: Automatic Transfer Provider - Reason: Patient not available)0917 ([facility] Unhold - Provider: Automatic Transfer Provider) dextrose 5 % (D5W) infusion 100 mL/hr, intravenous, Continuous PRN, blood glucose less than 70 mg/dL, Starting on 10/12/23 at 2321, Use immediately following dextrose 50% or glucagon treatment for patients who are unconscious or NPO. Contact prescriber for additional orders. If blood glucose is not greater than 70 mg/dL after initial treatment, repeat treatment. 0729 ([facility] Hold - Provider: Automatic Transfer Provider - Reason: Patient not available)0917 ([facility] Unhold - Provider: Automatic Transfer Provider) dextrose [...] treatment. VESICANT (RED) Warning: HYPERTONIC solution. 07 ([facility] Hold - Provider: Automatic Transfer Provider - Reason: Patient not available)09 ([facility] Unhold - Provider: Automatic Transfer Provider) diphenhydrAMINE (BENADRYL) injection 50 mg(Linked Group 2) 50 mg, intravenous, As needed, for previously documented contrast allergy, Starting on Fri10/13/23 at 1118, Scheduling/ADT, Administer one hour prior to procedure Look-alike/sound-alike medication - verify indication for use. 07 ([facility] Hold - Provider: Automatic Transfer Provider - Reason: Patient not available)09 ([facility] Unhold - Provider: Automatic Transfer Provider) fentaNYL [...] mg/dL after initial treatment, repeat treatment. 07 ([facility] Hold - Provider: Automatic Transfer Provider - Reason: Patient not available)0917 ([facility] Unhold - Provider: Automatic Transfer Provider) iohexoL [...] (See Alternative - Provider: Gely Chua, RN)0729 ([facility] Hold - Provider: Automatic Transfer Provider - Reason: Patient not available)0917 ([facility] Unhold - Provider: Automatic Transfer Provider) 0605 [...] medication - verify indication for use. 07 ([facility] Hold - Provider: Automatic Transfer Provider - Reason: Patient not available)09 ([facility] Unhold - Provider: Automatic Transfer Provider) nitroglycerin [...] Alternative - Provider: Gely Chua, RN) 0729 ([facility] Hold - Provider: Automatic Transfer Provider - Reason: Patient not available)0917 ([facility] Unhold - Provider: Automatic Transfer Provider) potassium [...] over a minimum of 1 hour. 0729 ([facility] Hold - Provider: Automatic Transfer Provider - Reason: Patient not available)0917 ([facility] Unhold - Provider: Automatic Transfer Provider) potassium [...] 1.2 = 40 mEq VESICANT (YELLOW) 0729 ([facility] Hold - Provider: Automatic Transfer Provider - Reason: Patient not available)0917 ([facility] Unhold - Provider: Automatic Transfer Provider) predniSONE [...] medication - verify indication for use. 0729 ([facility] Hold - Provider: Automatic Transfer Provider - Reason: Patient not available)0917 ([facility] Unhold - Provider: Automatic Transfer Provider) sod [...] with a full glass of water. 0729 ([facility] Hold - Provider: Automatic Transfer Provider - Reason: Patient not available)0917 ([facility] Unhold - Provider: Automatic Transfer Provider) sodium chloride 0.9 % flush 3 mL 3 mL, intravenous, As needed, line care, before and after each intermittent use, Starting on Fri10/14/23 at 0913 sodium chloride 0.9 % infusion 10 mL/hr, intravenous, Continuous PRN, to maintain patency of lines, Starting on 10/12/23 at 2321, Line #1 0729 ([facility] Hold - Provider: Automatic Transfer Provider - Reason: Patient not available)0917 ([facility] Unhold - Provider: Automatic Transfer Provider) sodium chloride 0.9 % infusion 10 mL/hr, intravenous, Continuous PRN, to maintain patency of lines, Starting on 10/12/23 at 2321, Line #2 0729 ([facility] Hold - Provider: Automatic Transfer Provider - Reason: Patient not available)09 ([facility] Unhold - Provider: Automatic Transfer Provider) sodium chloride 0.9 % infusion 10 mL/hr, intravenous, Continuous PRN, to maintain patency of lines, Starting on 10/12/23 at 2321, Line #3 0729 ([facility] Hold - Provider: Automatic Transfer Provider - Reason: Patient not available)09 ([facility] Unhold - Provider: Automatic Transfer Provider) sodium [...] complete. Infuse using central line access. 728 ([facility] Hold - Provider: Automatic Transfer Provider - Reason: Patient not available)09 ([facility] Unhold - Provider: Automatic Transfer Provider) sodium [...] level 4 hours after infusion complete. 07 ([facility] Hold - Provider: Automatic Transfer Provider - Reason: Patient not available)09 ([facility] Unhold - Provider: Automatic Transfer Provider) Linked [...] level 0.45 to 0.5 mmol/L, Starting on [place] 10/12/23 at 2321, Use premix solution. Default [...] As needed, for potassium replacement, Starting on [place] 10/12/23 at 2321, Progress to oral potassium [...] BE BASED ON THE PRIMARY CLINICAL RECORDS. [facility] [employer] [facility]. provides no warranty or guarantee of the accuracy or completeness of information in this document.
[2023-11-17 08:14] LABS: Basophils Absolute Auto 0.1 10^3/uL (0.0-0.1); Basophils Percent Auto 0.7 % (0.2-2.0); Eosinophils Absolute Auto 0.2 10^3/uL (0.0-0.7); Eosinophils Percent Auto 1.7 % (0.9-7.0); Hemoglobin 10.4 g/dL (12.0-16.0); Immature Granulocytes Abs Auto 0.03 10^3/uL (0.00-0.03); Immature Granulocytes Pct Auto 0.3 % (0.0-0.5); Lymphocytes Absolute Auto 1.8 10^3/uL (1.2-3.8); Lymphocytes Percent Auto 21.1 % (20.5-60.0); Mean Corpuscular HGB Conc 30.6 g/dL (29.9-35.2); Mean Corpuscular Hemoglobin 32.5 pg (26.7-34.0); Mean Platelet Volume 9.9 fL (9.5-13.5); Monocytes Absolute Auto 0.6 10^3/uL (0.3-0.8); Neutrophils Percent Auto 69.2 % (43.0-75.0); Platelet Count 382 10^3/uL (150-450); Red Cell Distribution Width 13.5 % (11.0-15.0); White Blood Count 8.7 10^3/uL (4.0-11.0)
[2023-11-17 09:15] LABS: Mean Corpuscular Volume 106.3 fL (81.0-99.0)
[2023-11-17 09:55] LABS: Alanine Aminotransferase 22 U/L (14-59); Albumin Globulin Ratio 0.6; Albumin Level 2.1 g/dL (3.4-5.0); Alkaline Phosphatase 151 U/L (46-116); Anion Gap 13.5; Aspartate Amino Transferase 31 U/L (15-37); Bilirubin Direct <0.1 mg/dL (0.0-0.2); Bilirubin Total 0.2 mg/dL (0.2-1.0); Carbon Dioxide 26.4 mmol/L (21.0-32.0); Chloride 105 mmol/L (98-107); Estimated GFR (African America 58 (>=60); Estimated GFR (Non-African Ame 48 (>=60); Globulin 3.6 g/dL; Potassium 4.9 mmol/L (3.5-5.1); Sodium 140 mmol/L (136-145); Total Protein 5.7 g/dL (6.4-8.2)
== END 2023-11-17 03:49 | disposition home or self-care (01) ==
LOC: LAB 03:48
PROVIDERS: Visit Provider Internal Medicine
DX: I50.20 Unspecified systolic (congestive) heart failure (principal); I95.9 Hypotension, unspecified
CPT/HCPCS: 36415; 80051; 80076; 82565; 83880; 84520; 85025; 87086

== ENCOUNTER 2023-11-24 10:09 | Outpatient (OUT) | payer MEDICARE, SELFPAY ==
--- NOTE | 2023-11-24 | XR_ITS ---
[address] [address] Patient Name: ASHVIN RENE MRN: [id number] date: 1955 Sex: F Assigned Patient Location: Current Patient Location: Accession/Order Number: [id number] Exam Date: 11/24/2023 10:10 Report Date: 11/24/2023 13:52 At the request of: LAURIE ARTEAGA Procedure: XR pelvis 1-2V EXAMINATION: XR pelvis 1-2V HISTORY: PELVIS PAIN COMPARISON: 11/04/2023 FINDINGS: BOWEL GAS PATTERN: No abnormal dilation or deviation. CALCIFICATIONS: None significant. OTHER: Acute fractures of left superior and inferior pubic rami. Remote left femur fracture with internal fixation, stable. Degenerative changes of the spine XR/XR pelvis 1-2V IMPRESSION: Stable left superior and inferior pubic ramus fracture Electronically authenticated by: YARY EMANUEL Date: 11/24/2023 13:52
== END 2023-11-24 10:10 | disposition home or self-care (01) ==
LOC: EC 10:09
PROVIDERS: Visit Provider Orthopaedic Surgery
DX: S32.502D Unspecified fracture of left pubis, subsequent encounter for fracture with routine healing (principal)
CPT/HCPCS: 72170

== ENCOUNTER 2023-12-12 11:04 | Outpatient (OUT) | payer MEDICARE, SELFPAY ==
[2023-12-12 11:37] LABS: Basophils Percent Auto 0.6 % (0.2-2.0); Eosinophils Absolute Auto 0.2 10^3/uL (0.0-0.7); Eosinophils Percent Auto 2.7 % (0.9-7.0); Hematocrit 38.4 % (36.0-48.0); Hemoglobin 12.1 g/dL (12.0-16.0); Immature Granulocytes Abs Auto 0.02 10^3/uL (0.00-0.03); Immature Granulocytes Pct Auto 0.3 % (0.0-0.5); Lymphocytes Absolute Auto 1.7 10^3/uL (1.2-3.8); Lymphocytes Percent Auto 24.6 % (20.5-60.0); Mean Corpuscular HGB Conc 31.5 g/dL (29.9-35.2); Mean Corpuscular Volume 101.6 fL (81.0-99.0); Mean Platelet Volume 9.6 fL (9.5-13.5); Monocytes Absolute Auto 0.6 10^3/uL (0.3-0.8); Monocytes Percent Auto 8.5 % (1.7-12.0); Neutrophils Absolute Auto 4.5 10^3/uL (1.4-6.5); Neutrophils Percent Auto 63.3 % (43.0-75.0); Platelet Count 332 10^3/uL (150-450); Red Blood Count 3.78 10^6/uL (4.20-5.40); Red Cell Distribution Width 14.3 % (11.0-15.0); White Blood Count 7.1 10^3/uL (4.0-11.0)
[2023-12-12 12:00] LABS: Anion Gap 14.2; Calcium 8.4 mg/dL (8.5-10.1); Carbon Dioxide 23.8 mmol/L (21.0-32.0); Chloride 103 mmol/L (98-107); Estimated GFR (African America 58 (>=60); Estimated GFR (Non-African Ame 48 (>=60); Sodium 137 mmol/L (136-145)
== END 2023-12-12 11:05 | disposition home or self-care (01) ==
LOC: LAB 11:07
PROVIDERS: PCP Internal Medicine; Visit Provider Internal Medicine
DX: Z79.899 Other long term (current) drug therapy (principal); M81.0 Age-related osteoporosis without current pathological fracture; I95.1 Orthostatic hypotension
CPT/HCPCS: 36415; 80051; 82306; 82310; 82565; 84520; 85025

== ENCOUNTER 2023-12-19 07:39 | Outpatient (RCR) | payer MEDICARE, SELFPAY ==
[2023-12-19 13:30] VITALS: BP 106/61; PULSE 96; TEMP 35.8; O2SAT 96
[2023-12-19] MEDS: ZOLEDRONIC ACID/MANNITOL-WATER 5 MG/100 ML BOTTLE 400 MG IV (13:45)
--- NOTE | 2023-12-19 14:19 | PC.NURSE ---
Pt is here for Reclast infusion, vitals obtained and stable. IV started in her right AC, she tolerated infusion well and denies any complaints. IV discontinued, she denies any pain. She was discharged home via wheelchair with family.
== END 2023-12-19 14:33 | disposition home or self-care (01) ==
LOC: INF 07:39
PROVIDERS: PCP Internal Medicine; Visit Provider Internal Medicine
DX: M81.0 Age-related osteoporosis without current pathological fracture (principal)
CPT/HCPCS: 96365; J3489

== ENCOUNTER 2023-12-22 10:17 | Outpatient (OUT) | payer MEDICARE, SELFPAY ==
--- NOTE | 2023-12-22 | XR_ITS ---
The [address] [address] Patient Name: ASHVIN RENE MRN: [id number] date: 1955 Sex: F Assigned Patient Location: Current Patient Location: Accession/Order Number: [id number] Exam Date: 12/22/2023 10:18 Report Date: 12/22/2023 15:51 At the request of: LAURIE ARTEAGA Procedure: XR pelvis 1-2V EXAMINATION: XR pelvis 1-2V HISTORY: PELVIS PAIN COMPARISON: 11/24/2023 FINDINGS: BOWEL GAS PATTERN: Contour deformity of the left superior and inferior pubic rami, stable fractures. Interval sclerosis consistent with healing. Internal fixation of the left proximal femur. Degenerative changes of the spine with dextrocurvature. CALCIFICATIONS: Extensive pelvic calcifications likely vascular phleboliths. Vascular calcifications. OTHER: Negative. No abnormal gaseous collections. XR/XR pelvis 1-2V IMPRESSION: Stable healing left superior and inferior pubic rami fractures Electronically authenticated by: YARY EMANUEL Date: 12/22/2023 15:51
== END 2023-12-22 10:18 | disposition home or self-care (01) ==
LOC: EC 10:17
PROVIDERS: PCP Internal Medicine; Visit Provider Orthopaedic Surgery
DX: S32.592D Other specified fracture of left pubis, subsequent encounter for fracture with routine healing (principal)
CPT/HCPCS: 72170

== ENCOUNTER 2023-12-29 13:54 | Emergency (ER) | payer MEDICARE, SELFPAY ==
[2023-12-29] VITALS (12 sets, daily range): BP systolic 99–122; BP diastolic 64–70; PULSE 76–84; TEMP 36.4; O2SAT 97–100; BMI 29.3
--- NOTE | 2023-12-29 14:10 | ED_ITS ---
HPI - Weakness General Chief complaint: Weakness Stated complaint: CVA SYMPTOMS Time Seen by Provider: 12/29/23 14:08 History of Present Illness HPI Narrative: This patient was brought to the hospital by a family friend. She says she she lives alone with some assistance and caregiver. Our nursing staff help to remove her from the car and she was not very responsive at that time. When we see here, a very short time later she is much more awake and alert and talking to us. She says she had a headache earlier but does not have a headache now. She says she just feels weak and tired and fatigued. She denies any recent vomiting. She says she has disgusted with herself or being here for some reason. I think she just does not feel well. Her blood sugar was checked immediately and is normal. She follows all simple commands. Related Data Home Medications ?Medication ?Instructions ?Recorded ?Confirmed clopidogrel 75 mg tablet 75 mg PO DAILY 10/12/23 11/04/23 duloxetine 30 mg capsule,delayed 30 mg PO DAILY 10/12/23 11/04/23 release famotidine 40 mg tablet 40 mg PO .qhs 10/12/23 11/04/23 fludrocortisone 0.1 mg tablet 0.05 mg PO DAILY 10/12/23 11/04/23 liothyronine 5 mcg tablet 10 mcg PO DAILY 10/12/23 11/04/23 midodrine 10 mg tablet 10 mg PO TID 10/12/23 11/04/23 montelukast 10 mg tablet 10 mg PO DAILY 10/12/23 11/04/23 pantoprazole 40 mg tablet,delayed 40 mg PO DAILY 10/12/23 11/04/23 release pregabalin 50 mg capsule 50 mg PO .qhs 10/12/23 11/04/23 ranolazine 1,000 mg 500 mg PO Q12H 10/12/23 11/04/23 tablet,extended release,12 hr rosuvastatin 20 mg tablet 20 mg PO DAILY 10/12/23 11/04/23 sucralfate 1 gram tablet 1 g PO BID 10/12/23 11/04/23 trazodone 150 mg tablet 150 mg PO BEDTIME 10/12/23 11/04/23 bisoprolol fumarate 5 mg tablet 2.5 mg PO DAILY 11/04/23 11/04/23 calcium citrate 250 mg PO DAILY 11/04/23 11/04/23 cholecalciferol (vitamin D3) 125 5,000 unit PO TID 11/04/23 11/04/23 mcg (5,000 unit) capsule collagenase clostridium histo. 250 1 applic topical QPM 11/04/23 11/04/23 unit/gram topical ointment (Santyl) dapagliflozin propanediol 10 mg 10 mg PO QAM 11/04/23 11/04/23 tablet (Farxiga) ipratropium bromide 21 mcg (0.03 2 spray intranasal DAILY PRN 11/04/23 11/04/23 %) nasal spray allergy symptoms midodrine 10 mg tablet 10 mg PO TID PRN hypotension 11/04/23 11/04/23 sacubitril 24 mg-valsartan 26 mg 0.5 tab PO BID 11/04/23 11/04/23 tablet (Entresto) spironolactone 25 mg tablet 12.5 mg PO DAILY 11/04/23 11/04/23 torsemide 20 mg tablet 10 mg PO DAILY 11/04/23 11/04/23 Previous Rx's ?Medication ?Instructions ?Recorded aspirin 81 mg chewable tablet 81 mg PO QD 30 days #30 tabs 11/06/23 doxycycline hyclate 100 mg tablet 100 mg PO BID 7 days #14 tabs 11/06/23 oxycodone 5 mg tablet 5 mg PO Q6H PRN Pain Scale 4-6 2 11/06/23 days #8 tabs Allergies Allergy/AdvReac Type Severity Reaction Status Date / Time No Known Drug Allergies Allergy Verified 11/04/23 01:07 [facility] Medical History (Updated 12/29/23 @ 15:48 by Sunny Taylor MD) GERD (gastroesophageal reflux disease) ?K21.9 - Gastro-esophageal reflux disease without esophagitis (ICD-10) Hypotension ?I95.9 - Hypotension, unspecified (ICD-10) Hypothyroidism ?E03.9 - Hypothyroidism, unspecified (ICD-10) CHF (congestive heart failure) ?I50.9 - Heart failure, unspecified (ICD-10) Non-STEMI (non-ST elevated myocardial infarction) ?I21.4 - Non-ST elevation (NSTEMI) myocardial infarction (ICD-10) Stroke ?I63.9 - Cerebral infarction, unspecified (ICD-10) Hip fracture, left ?S72.002A - Fracture of unspecified part of neck of left femur, initial encounter for closed fracture (ICD-10) Left tibial fracture ?S82.202A - Unspecified fracture of shaft of left tibia, initial encounter for closed fracture (ICD-10) Surgical History (Updated 11/04/23 @ 10:53 by Mary Barry NP) History of coronary artery bypass graft x 2 ?Z95.1 - Presence of aortocoronary bypass graft (ICD-10) History of right knee joint replacement ?Z96.651 - Presence of right artificial knee joint (ICD-10) Family History (Updated 11/04/23 @ 05:00 by Carolyn Thomas) Other Family history of diabetes mellitus Family history of hypertension Family history of myocardial infarction Social History (Updated 11/04/23 @ 05:02 by Carolyn Thomas) Within the past year, how often did you have a drink containing alcohol: never Score interpretation: A score less than 3 is consistent with normal alcohol consumption. Smoking status: Former smoker Non-prescribed substance use: denies use Previous occupational history: Retired Highest level of school completed/degree received: high school graduate Are you now , , , , never or living with a partner: In a typical week, how many times do you talk on the telephone with family, friends, or neighbors: 3 or more times per week How often do you get together with friends or relatives: 3 or more times per week Little interest or pleasure in doing things: not at all Feeling down, depressed, or hopeless: not at all Feel stressed/tense/nervous/anxious/difficulty sleeping: not at all Do you think of yourself as: straight/heterosexual Gender Identity: female Exam Narrative Exam Narrative: Patient seen on arrival. He is awake alert speech is very slow but is not slurred. She is not confused. She follows all simple and complex commands. She says she just feels fatigued. Vital signs are noted with no hypotension. Oxygen saturations are also normal. HEENT shows no evidence of conjunctivitis no evidence of pallor or anemia. No craniofacial trauma or injury or indication of a fall. Her lungs are clear with no wheeze rales or rhonchi heart sounds are normal with no S3-S4 or murmur. Twelve-lead EKG was done as noted below appears to be sinus rhythm. Abdominal examination she has no pain or discomfort. Neurological examination cranial nerves are normal. Movement in the upper and lower extremities is equal bilaterally. She has no sensory disturbance. Her cognition appears to be normal at this time. She is not repeating herself. MDM - Weakness MDM Narrative Medical decision making narrative: Because of this change in mental status and slurring of speech a CT scan was done of her head. Routine chemistries were done her well. She was under observation here. With a repeat examination done at 1530 hrs. she is much more awake and alert. I did check her carotids at this time and she has no carotid bruits and she has no atrial fibrillation at this time. Her serum creatinine is slightly elevated. The CT scan of the head was negative there is no indication of acute pneumonia. The case was discussed with her primary care physician who indicates that she has frequent episodes of orthostatic hypotension. This may represent a TIA but she is already on aspirin and Plavix. She has a number of medical problems. Dr. Dumont would like to see her in the office tomorrow. We do not see any indication for her to be admitted at this time. The family said they can provide safe havenand observation this evening. Discharge Plan Discharge Stand Alone Forms: Portal Instructions Chief Complaint: Weakness Clinical Impression: Acute alteration in mental status Patient Disposition: Home, Self-Care Time of Disposition Decision: 15:48 Prescriptions / Home Meds: No Action clopidogrel 75 mg tablet 75 mg PO DAILY duloxetine 30 mg capsule,delayed release(DR/EC) 30 mg PO DAILY famotidine 40 mg tablet 40 mg PO .qhs fludrocortisone 0.1 mg tablet 0.05 mg PO DAILY liothyronine 5 mcg tablet 10 mcg PO DAILY montelukast 10 mg tablet 10 mg PO DAILY midodrine 10 mg tablet 10 mg PO TID pantoprazole 40 mg tablet,delayed release (DR/EC) 40 mg PO DAILY trazodone 150 mg tablet 150 mg PO BEDTIME Patient Comments: 75-150 mg at qhs sucralfate 1 gram tablet 1 g PO BID rosuvastatin 20 mg tablet 20 mg PO DAILY ranolazine 1,000 mg tablet extended release 12 hr 500 mg PO Q12H pregabalin 50 mg capsule 50 mg PO .qhs calcium citrate 250 mg calcium tablet 250 mg PO DAILY Santyl 250 unit/gram ointment 1 applic TOPICAL QPM Patient Comments: gangrene on toe on right foot dapagliflozin propanediol [Farxiga] 10 mg tablet 10 mg PO QAM ipratropium bromide 21 mcg (0.03 %) spray,non-aerosol 2 spray INTRANASAL DAILY PRN (Reason: allergy symptoms) cholecalciferol (vitamin D3) 125 mcg (5,000 unit) capsule 5,000 unit PO TID bisoprolol fumarate 5 mg tablet 2.5 mg PO DAILY Hold Instructions: Resume on 11/13/23. Hold for hypotension while taking pain medications. Entresto 24-26 mg tablet 0.5 tab PO BID spironolactone 25 mg tablet 12.5 mg PO DAILY midodrine 10 mg tablet 10 mg PO TID PRN (Reason: hypotension) Rx Instructions: in addition to the scheduled doses torsemide 20 mg tablet 10 mg PO DAILY aspirin 81 mg Tablet,Chewable 81 mg PO QD 30 Days Qty: 30 0RF oxycodone 5 mg Tablet 5 mg PO Q6H PRN (Reason: Pain Scale 4-6) 2 Days Qty: 8 0RF doxycycline hyclate 100 mg tablet 100 mg PO BID 7 Days Qty: 14 0RF Print Language: Palestinian Additional Instructions: Follow-up with your primary care doctor tomorrow. He has been given report of your testing today Referrals: KENISHA SOLANO MD [Primary Care Provider] - 1 week
--- NOTE | 2023-12-29 14:12 | ECG_ITS ---
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
--- NOTE | 2023-12-29 14:12 | XR_ITS ---
The [address] [address] Patient Name: ASHVIN RENE MRN: [id number] date: 1955 Sex: F Assigned Patient Location: ER Current Patient Location: ED.MAIN Accession/Order Number: [id number] Exam Date: 12/29/2023 14:29 Report Date: 12/29/2023 14:42 At the request of: LENNY VILLA Procedure: XR chest 1V EXAMINATION: XR chest 1V HISTORY: Weakness COMPARISON: XR chest 11/05/2023 FINDINGS: LUNGS: No significant pulmonary parenchymal abnormalities. VASCULATURE: No increased pulmonary vasculature. PLEURA: No pneumothorax, effusion, or pleural thickening. CARDIAC: No cardiomegaly or cardiac silhouette abnormality. MEDIASTINUM: Prior sternotomy. No visible mass or adenopathy. BONES: No fracture or visible bone lesion. OTHER: Negative. XR/XR chest 1V IMPRESSION: 1. No acute cardiopulmonary process. Clearing of previously seen infiltrates. Electronically authenticated by: LAURIE MEJÍA Date: 12/29/2023 14:42
--- NOTE | 2023-12-29 14:12 | CT_ITS ---
The [address] [address] Patient Name: ASHVIN RENE MRN: [id number] date: 1955 Sex: F Assigned Patient Location: ED.MAIN Current Patient Location: Accession/Order Number: [id number] Exam Date: 12/29/2023 14:29 Report Date: 12/29/2023 14:54 At the request of: LENNY VILLA Procedure: CT head/brain wo con EXAMINATION: CT head/brain wo con HISTORY: Mental status change COMPARISON: CT head 11/04/2023 TECHNIQUE: Axial CT images were obtained without IV contrast. Dose reduction techniques were achieved by using automated exposure control and/or adjustment of mA and/or kV according to patient size and/or use of iterative reconstruction technique. FINDINGS: BRAIN: No edema, hemorrhage, mass, acute infarction, or inappropriate atrophy. CSF SPACES: No hydrocephalus, subarachnoid hemorrhage, or mass. Appropriate for age. SKULL: No fracture, mass, or other significant visible lesion. SINUSES: No significant mucosal thickening or fluid on the limited views. ORBITS: No appreciable abnormality on the limited views. OTHER: Negative CT/CT head/brain wo con IMPRESSION: 1. No abnormal or suspicious findings. Electronically authenticated by: LAURIE MEJÍA Date: 12/29/2023 14:54
[2023-12-29 14:23] LABS: Glucometer 150 mg/dL (74-106)
[2023-12-29] MEDS: 0.9 % SODIUM CHLORIDE 1,000 ML 999 ML IV (14:38)
[2023-12-29 15:04] LABS: PCO2 VBG 43.7 mmHg (40.0-52.0); pH VBG 7.197 (7.330-7.430)
[2023-12-29 15:05] LABS: Basophils Percent Auto 0.4 % (0.2-2.0); Eosinophils Absolute Auto 0.1 10^3/uL (0.0-0.7); Eosinophils Percent Auto 1.4 % (0.9-7.0); Hematocrit 39.4 % (36.0-48.0); Hemoglobin 12.1 g/dL (12.0-16.0); Immature Granulocytes Abs Auto 0.02 10^3/uL (0.00-0.03); Immature Granulocytes Pct Auto 0.2 % (0.0-0.5); Lymphocytes Absolute Auto 1.8 10^3/uL (1.2-3.8); Lymphocytes Percent Auto 22.6 % (20.5-60.0); Mean Corpuscular HGB Conc 30.7 g/dL (29.9-35.2); Mean Corpuscular Hemoglobin 32.3 pg (26.7-34.0); Mean Corpuscular Volume 105.1 fL (81.0-99.0); Mean Platelet Volume 9.6 fL (9.5-13.5); Monocytes Absolute Auto 0.5 10^3/uL (0.3-0.8); Monocytes Percent Auto 6.7 % (1.7-12.0); Neutrophils Absolute Auto 5.6 10^3/uL (1.4-6.5); Neutrophils Percent Auto 68.7 % (43.0-75.0); Platelet Count 342 10^3/uL (150-450); Red Blood Count 3.75 10^6/uL (4.20-5.40); Red Cell Distribution Width 18.5 % (11.0-15.0); White Blood Count 8.1 10^3/uL (4.0-11.0)
[2023-12-29 15:16] LABS: Alanine Aminotransferase 25 U/L (14-59); Albumin Globulin Ratio 0.7; Albumin Level 2.4 g/dL (3.4-5.0); Alkaline Phosphatase 217 U/L (46-116); Anion Gap 16.5; Aspartate Amino Transferase 23 U/L (15-37); BUN Creatinine Ratio 16.9; Bilirubin Total 0.3 mg/dL (0.2-1.0); Carbon Dioxide 15.7 mmol/L (21.0-32.0); Chloride 109 mmol/L (98-107); Estimated GFR (African America 36 (>=60); Estimated GFR (Non-African Ame 29 (>=60); Globulin 3.6 g/dL; Glucose 159 mg/dL (74-106); Potassium 5.2 mmol/L (3.5-5.1); Sodium 136 mmol/L (136-145); Troponin I High Sensitivity 17.3 pg/mL (4.0-51.3)
[2023-12-29 15:27] LABS: Lactate/Lactic Acid 1.5 mmol/L (0.4-2.0)
== END 2023-12-29 16:08 | disposition home or self-care (01) ==
PROVIDERS: Emergency Provider Emergency Medicine Emergency Medical Services; PCP Internal Medicine
DX: Z87.891 Personal history of nicotine dependence (principal); R41.82 Altered mental status, unspecified; I50.9 Heart failure, unspecified
CPT/HCPCS: 36415; 70450; 71045; 80053; 82800; 83605; 83880; 84484; 85025; 87040; 93005; 96360; 99285

== ENCOUNTER 2024-01-19 10:18 | Outpatient (OUT) | payer MEDICARE, SELFPAY ==
--- NOTE | 2024-01-19 | XR_ITS ---
The [address] [address] Patient Name: ASHVIN RENE MRN: [id number] date: 1955 Sex: F Assigned Patient Location: Current Patient Location: Accession/Order Number: [id number] Exam Date: 01/19/2024 10:20 Report Date: 01/20/2024 07:08 At the request of: LAURIE ARTEAGA Procedure: XR pelvis 1-2V PROCEDURE: XR pelvis 1-2V COMPARISON: 12/22/2023 HISTORY: PELVIS PAIN FINDINGS: BONES:Stable healing fractures left superior and inferior pubic rami evidenced by increased sclerosis. No new fracture or dislocation. Remote left intertrochanteric hip fracture with internal fixation, stable SOFT TISSUES:Negative. No visible soft tissue swelling. EFFUSION:None visible. OTHER: Extensive vascular calcifications XR/XR pelvis 1-2V IMPRESSION: Healing fractures left superior and inferior pubic rami Electronically authenticated by: YARY EMANUEL Date: 01/20/2024 07:08
== END 2024-01-19 10:19 | disposition home or self-care (01) ==
LOC: EC 10:18
PROVIDERS: PCP Internal Medicine; Visit Provider Orthopaedic Surgery
DX: S32.502D Unspecified fracture of left pubis, subsequent encounter for fracture with routine healing (principal)
CPT/HCPCS: 72170

== ENCOUNTER 2024-02-19 14:51 | Outpatient (OUT) | payer MEDICARE, SELFPAY ==
--- NOTE | 2024-02-19 15:15 | MM_ITS ---
Patient Name: ASHVIN RENE MR#: [id number] : 1955 Exam Date: 02/19/2024 Ordering Doctor: DR KENISHA SOLANO D.O. RADIOLOGY REPORT PROCEDURE: MM TOMOSYNTHESIS SCREENING BI COMPARISON: MG MAMM RELL SCRN W CAD DIG, 05/17/2014. MG MAMM SCREEN 3D RELL CAD, 06/14/2022. INDICATIONS: Screening Calculator Name NCI Breast Cancer Risk Assessment Tool 5 Year Breast Cancer Risk 1.40% Lifetime Breast Cancer Risk 4.00% Personal Breast Cancer No Personal Ovarian Cancer No Treatments None Family Cancers None LOCATION: The [facility] BREAST COMPOSITION: There are scattered areas of fibroglandular density. FINDINGS: DIAGNOSTIC CATEGORY 2--BENIGN FINDING. NO CHANGE FROM COMPARISON. Scattered benign-appearing calcifications are present. RIGHT BREAST: No significant suspicious finding. LEFT BREAST: No significant suspicious finding. Loop recorder RECOMMENDATIONS: ROUTINE MAMMOGRAM AND CLINICAL EVALUATION IN 12 MONTHS. PLEASE NOTE: A NORMAL MAMMOGRAM DOES NOT EXCLUDE THE POSSIBILITY OF BREAST CANCER. A CLINICALLY SUSPICIOUS PALPABLE LUMP SHOULD BE BIOPSIED. Dictated by: Zev Post MD on 02/19/2024 at 15:42 Approved by: Zev Post MD on 02/19/2024 at 15:43
== END 2024-02-19 14:52 | disposition home or self-care (01) ==
LOC: MAMMO 14:51
PROVIDERS: PCP Internal Medicine; Visit Provider Internal Medicine
DX: Z12.31 Encounter for screening mammogram for malignant neoplasm of breast (principal)
CPT/HCPCS: 77063; 77067

== ENCOUNTER 2024-02-20 13:53 | Inpatient (IN) | payer MEDICARE, SELFPAY ==
[2024-02-20] VITALS (10 sets, daily range): BP systolic 102–134; BP diastolic 63–81; PULSE 84–93; TEMP 36.4–36.9; O2SAT 94–99; BMI 24.7; BMI 25.7
--- NOTE | 2024-02-20 13:57 | XR_ITS ---
The [address] [address] Patient Name: ASHVIN RENE MRN: [id number] date: 1955 Sex: F Assigned Patient Location: ER Current Patient Location: ER Accession/Order Number: [id number] Exam Date: 02/20/2024 14:05 Report Date: 02/20/2024 14:23 At the request of: SHANTI RAINEY Procedure: XR hip RT min 2V PROCEDURE: XR hip RT min 2V HISTORY: fall COMPARISON: XR pelvis 01/19/2024 FINDINGS: BONES:Fracture through proximal right femur extending from inferior margin of greater trochanter laterally to just above the superior margin of the lesser trochanter medially. Medial displacement of the femur 2.1 cm with suspected impaction into the head and femoral neck. Femoral head remains seated within the acetabulum without significant joint degenerative joint disease. SOFT TISSUES:No visible soft tissue swelling. EFFUSION:None visible. OTHER: Negative. XR/XR hip RT min 2V IMPRESSION: 1. Acute, displaced, and impacted fracture of the proximal right femur as detailed above. Electronically authenticated by: LAURIE MEJÍA Date: 02/20/2024 14:23
--- NOTE | 2024-02-20 13:58 | ED_ITS ---
HPI HPI - General Adult General Chief complaint: Fall Stated complaint: FALL Time Seen by Provider: 02/20/24 13:57 History of Present Illness HPI narrative: 68-year-old female presents for right hip pain. She tripped over a curb and this happened just before coming into the emergency department. She was transported here by paramedics. She points to the right hip. She had left hip fracture 9 years ago with resulting surgery. The pain is severe and is worse when she moves. She sustained some skin tears to her right forearm as well but otherwise did not sustain any other injuries. Related Data Home Medications ?Medication ?Instructions ?Recorded ?Confirmed clopidogrel 75 mg tablet 75 mg PO DAILY 10/12/23 02/20/24 duloxetine 30 mg capsule,delayed 30 mg PO DAILY 10/12/23 11/04/23 release famotidine 40 mg tablet 40 mg PO .qhs 10/12/23 11/04/23 fludrocortisone 0.1 mg tablet 0.05 mg PO DAILY 10/12/23 11/04/23 liothyronine 5 mcg tablet 10 mcg PO DAILY 10/12/23 11/04/23 midodrine 10 mg tablet 10 mg PO TID 10/12/23 11/04/23 montelukast 10 mg tablet 10 mg PO DAILY 10/12/23 11/04/23 pantoprazole 40 mg tablet,delayed 40 mg PO DAILY 10/12/23 11/04/23 release pregabalin 50 mg capsule 50 mg PO .qhs 10/12/23 11/04/23 ranolazine 1,000 mg 500 mg PO Q12H 10/12/23 11/04/23 tablet,extended release,12 hr rosuvastatin 20 mg tablet 20 mg PO DAILY 10/12/23 11/04/23 sucralfate 1 gram tablet 1 g PO BID 10/12/23 11/04/23 trazodone 150 mg tablet 150 mg PO BEDTIME 10/12/23 11/04/23 bisoprolol fumarate 5 mg tablet 2.5 mg PO DAILY 11/04/23 11/04/23 calcium citrate 250 mg PO DAILY 11/04/23 11/04/23 cholecalciferol (vitamin D3) 125 5,000 unit PO TID 11/04/23 11/04/23 mcg (5,000 unit) capsule collagenase clostridium histo. 250 1 applic topical QPM 11/04/23 11/04/23 unit/gram topical ointment (Santyl) dapagliflozin propanediol 10 mg 10 mg PO QAM 11/04/23 11/04/23 tablet (Farxiga) ipratropium bromide 21 mcg (0.03 2 spray intranasal DAILY PRN 11/04/23 11/04/23 %) nasal spray allergy symptoms midodrine 10 mg tablet 10 mg PO TID PRN hypotension 11/04/23 11/04/23 sacubitril 24 mg-valsartan 26 mg 0.5 tab PO BID 11/04/23 11/04/23 tablet (Entresto) spironolactone 25 mg tablet 12.5 mg PO DAILY 11/04/23 11/04/23 torsemide 20 mg tablet 10 mg PO DAILY 11/04/23 11/04/23 Previous Rx's ?Medication ?Instructions ?Recorded aspirin 81 mg chewable tablet 81 mg PO QD 30 days #30 tabs 11/06/23 doxycycline hyclate 100 mg tablet 100 mg PO BID 7 days #14 tabs 11/06/23 oxycodone 5 mg tablet 5 mg PO Q6H PRN Pain Scale 4-6 2 11/06/23 days #8 tabs Allergies Allergy/AdvReac Type Severity Reaction Status Date / Time No Known Drug Allergies Allergy Verified 02/20/24 14:00 Opioid HPI Opioid Management Most Recent Opioid Data: Last Pain Scale 10 02/20/24 14:19 Last MAR Pain Assessment 02/20/24 14:19 Last ORT Total Score 3 11/04/23 04:48 Last ORT Risk Category Low Risk 11/04/23 04:48 Review of Systems ROS Narrative A ten point review of systems is negative except as noted above. [facility] Medical History (Updated 02/20/24 @ 14:58 by Olman Schroeder MD) GERD (gastroesophageal reflux disease) ?K21.9 - Gastro-esophageal reflux disease without esophagitis (ICD-10) Hypotension ?I95.9 - Hypotension, unspecified (ICD-10) Hypothyroidism ?E03.9 - Hypothyroidism, unspecified (ICD-10) CHF (congestive heart failure) ?I50.9 - Heart failure, unspecified (ICD-10) Non-STEMI (non-ST elevated myocardial infarction) ?I21.4 - Non-ST elevation (NSTEMI) myocardial infarction (ICD-10) Stroke ?I63.9 - Cerebral infarction, unspecified (ICD-10) Hip fracture, left ?S72.002A - Fracture of unspecified part of neck of left femur, initial encounter for closed fracture (ICD-10) Left tibial fracture ?S82.202A - Unspecified fracture of shaft of left tibia, initial encounter for closed fracture (ICD-10) Surgical History (Updated 11/04/23 @ 10:53 by Mary Barry NP) History of coronary artery bypass graft x 2 ?Z95.1 - Presence of aortocoronary bypass graft (ICD-10) History of right knee joint replacement ?Z96.651 - Presence of right artificial knee joint (ICD-10) Family History (Updated 11/04/23 @ 05:00 by Carolyn Thomas) Other Family history of diabetes mellitus Family history of hypertension Family history of myocardial infarction Social History (Updated 11/04/23 @ 05:02 by Carolyn Thomas) Within the past year, how often did you have a drink containing alcohol: never Score interpretation: A score less than 3 is consistent with normal alcohol consumption. Smoking status: Former smoker Non-prescribed substance use: denies use Previous occupational history: Retired Highest level of school completed/degree received: high school graduate Are you now , , , , never or living with a partner: In a typical week, how many times do you talk on the telephone with family, friends, or neighbors: 3 or more times per week How often do you get together with friends or relatives: 3 or more times per week Little interest or pleasure in doing things: not at all Feeling down, depressed, or hopeless: not at all Feel stressed/tense/nervous/anxious/difficulty sleeping: not at all Do you think of yourself as: straight/heterosexual Gender Identity: female Exam Narrative Exam Narrative: Nurses note and vital signs reviewed and patient is not hypoxic. General: The patient appears uncomfortable Skin: Warm, dry, no pallor noted. There is no rash noted. Head: Normocephalic, atraumatic Eye: Normal conjunctiva, no drainage Ears, Nose, Mouth, and Throat: oral mucosa is moist. Nares patent. Cardiovascular: Regular Rate and Rhythm Respiratory: Patient is in no distress, no accessory muscle use, lungs are clear to auscultation, no wheezing, rales or rhonchi Back: non-tender GI: Soft and nontender Musculoskeletal: 2 skin tears present on the right forearm. Elbow wrist and shoulder all have full range of motion. Her right hip is flexed and she is reluctant to move it. Neurological: Awake alert and oriented Psychiatric: Cooperative Constitutional Vital Signs, click to edit/add: Last Vital Signs Temp 98.5 F 02/20/24 14:00 Pulse 90 02/20/24 14:00 Resp 16 02/20/24 14:00 BP 134/81 02/20/24 14:00 Pulse Ox 99 02/20/24 14:00 O2 Del Method Room Air 02/20/24 14:00 Course Vital Signs Vital signs: Vital Signs Temperature 98.5 F 02/20/24 14:00 Pulse Rate 90 02/20/24 14:00 Respiratory Rate 16 02/20/24 14:00 Blood Pressure 134/81 02/20/24 14:00 Pulse Oximetry 99 02/20/24 14:00 Oxygen Delivery Method Room Air 02/20/24 14:00 Temperature 98.5 F 02/20/24 14:00 Pulse Rate 90 02/20/24 14:00 Respiratory Rate 16 02/20/24 14:00 Blood Pressure 134/81 02/20/24 14:00 Pulse Oximetry 99 02/20/24 14:00 Oxygen Delivery Method Room Air 02/20/24 14:00 Medical Decision Making MDM Narrative Medical decision making narrative: Right hip fracture is identified. Case discussed with Dr. Pantoja and the patient will be admitted with plan for surgery tomorrow. Treatment diagnosis and disposition were discussed with the patient. Differential Diagnosis Differential Diagnosis: Hip fracture, hip contusion Lab Data Lab results reviewed: Yes I reviewed the patient's lab results Labs: Lab Results 02/20/24 Range/Units 14:23 Sodium 141 (136-145) mmol/L Potassium 4.2 (3.5-5.1) mmol/L Chloride 107 (98-107) mmol/L Carbon Dioxide 27.7 (21.0-32.0) mmol/L Anion Gap 10.5 BUN 16.0 (7.0-18.0) mg/dL Creatinine 1.09 H (0.55-1.02) mg/dL Est GFR ( Amer) >60 (>=60) Est GFR (Non-Af Amer) 50 L (>=60) BUN/Creatinine Ratio 14.7 Glucose 166 H (74-106) mg/dL Calcium 7.9 L (8.5-10.1) mg/dL Imaging Data Right hip x-ray: Radiologist's impression: ITS Impressions Hip X-Ray 02/20/24 13:57 IMPRESSION: 1. Acute, displaced, and impacted fracture of the proximal right femur as detailed above. Electronically authenticated by: LAURIE MEJÍA Date: 02/20/2024 14:23 ECG Data Attestation: I personally reviewed and interpreted this ECG as follows: (EKG on my interpretation shows normal sinus rhythm with a rate of 84 and no acute change.) Discharge Plan Discharge Chief Complaint: Fall Clinical Impression: Fracture of right hip Patient Disposition: Admitted As Inpatient Time of Disposition Decision: 14:58 Condition: Fair
--- NOTE | 2024-02-20 14:09 | ECG_ITS ---
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
[2024-02-20] MEDS: MORPHINE SULFATE 4 MG/ML VIAL IV ×2 (14:19→15:07)
[2024-02-20 14:37] LABS: Basophils Percent Auto 0.7 % (0.2-2.0); Eosinophils Absolute Auto 0.1 10^3/uL (0.0-0.7); Eosinophils Percent Auto 1.2 % (0.9-7.0); Hematocrit 33.7 % (36.0-48.0); Hemoglobin 10.5 g/dL (12.0-16.0); Immature Granulocytes Abs Auto 0.01 10^3/uL (0.00-0.03); Immature Granulocytes Pct Auto 0.2 % (0.0-0.5); Lymphocytes Absolute Auto 1.6 10^3/uL (1.2-3.8); Lymphocytes Percent Auto 39.9 % (20.5-60.0); Mean Corpuscular HGB Conc 31.2 g/dL (29.9-35.2); Mean Corpuscular Hemoglobin 35.7 pg (26.7-34.0); Mean Corpuscular Volume 114.6 fL (81.0-99.0); Mean Platelet Volume 9.6 fL (9.5-13.5); Monocytes Absolute Auto 0.4 10^3/uL (0.3-0.8); Monocytes Percent Auto 9.9 % (1.7-12.0); Neutrophils Absolute Auto 1.9 10^3/uL (1.4-6.5); Neutrophils Percent Auto 48.1 % (43.0-75.0); Platelet Count 263 10^3/uL (150-450); Red Cell Distribution Width 12.7 % (11.0-15.0)
--- NOTE | 2024-02-20 14:40 | CT_ITS ---
[address] [address] Patient Name: ASHVIN RENE MRN: [id number] date: 1955 Sex: F Assigned Patient Location: ER Current Patient Location: ED.MAIN Accession/Order Number: [id number] Exam Date: 02/20/2024 14:32 Report Date: 02/20/2024 15:31 At the request of: SHANTI RAINEY Procedure: CT hip RT wo con EXAMINATION: CT hip RT wo con HISTORY: fall COMPARISON: XR hip right 02/20/2024, XR pelvis 01/19/2024 TECHNIQUE: Multi-planar CT images were created without and/or with IV contrast according to examination type. Dose reduction techniques were achieved by using automated exposure control and/or adjustment of mA and/or kV according to patient size and/or use of iterative reconstruction technique. FINDINGS: BONES: Acute, transverse fracture of proximal right femur at level of lesser trochanter with medial displacement one full bone width. Displaced fracture of the lesser trochanter. Intact femoral head and acetabulum. Healing fractures of LEFT pubic rami. SOFT TISSUES: No hematoma or joint effusion. No visible soft tissue swelling. EFFUSION: None visible. OTHER: Small fat filled right inguinal hernia without strangulation. 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 CT/CT hip RT wo con IMPRESSION: 1. Acute displaced right femur fracture as detailed above. Electronically authenticated by: LAURIE MEJÍA Date: 02/20/2024 15:31
[2024-02-20 14:47] LABS: Anion Gap 10.5; BUN Creatinine Ratio 14.7; Calcium 7.9 mg/dL (8.5-10.1); Carbon Dioxide 27.7 mmol/L (21.0-32.0); Chloride 107 mmol/L (98-107); Estimated GFR (African America >60 (>=60); Estimated GFR (Non-African Ame 50 (>=60); Glucose 166 mg/dL (74-106); Potassium 4.2 mmol/L (3.5-5.1); Sodium 141 mmol/L (136-145)
[2024-02-20 14:55] LABS: INR 1.09; Partial Thromboplastin Time 28.6 sec (22.3-36.2); Prothrombin Time 11.5 sec (9.0-11.6)
[2024-02-20 15:30] LABS: Red Blood Count 2.94 10^6/uL (4.20-5.40)
--- OUTSIDE RECORDS SUMMARY | 2024-02-20 15:50 | XMS_ITS | CCD ---
Author Organization [facility] Care Team Providers Care Alberene Stone Setter Name Role Phone Tushar Solano Primary Care Provider UnavailHarriet Gipson Attending Provider Tushar Rodriguez Jr. Primary Care Provider Waqas Mabry Unavailable Antonio Kim Unavailable Virginia Marti Unavailable JR Tushar Solano Primary Care Provider [phone] ZAC Marti Attending Provider [phone] RUSS, DR DE Primary Care Unavailable VALONE, DR DE Consulting Unavailable VALONE, DR DE Attending Unavailable VALONE, DR DE Admitting Unavailable VALONE, DR DE Primary Care Unavailable VALONE, DR DE Consulting Unavailable VALONE, DR DE Attending Unavailable VALONE, DR DE Admitting Unavailable VALONE, DR DE Primary Care Unavailable VALONE, DR DE Consulting Unavailable VALONE, DR DE Attending Unavailable VALONE, DR DE Admitting Unavailable WATERBURY, DR YARY Burleson Consulting Unavailable Russ Christopher DO, Charles L Primary Care Provider NORMAN BRAGA Referring Unavailable TUSHAR SOLANO JR. Primary Care UnavailNORMAN Gordon Attending Unavailable SELF, SELF Referring Unavailable NORMAN BRAGA Attending Unavailable TUSHAR SOLANO JR. Primary Care UnavailJolie Calloway Unavailable Tushar Solano Primary Care Unavailable Rodrick Lorenzo Attending Unavailable Rodrick Lorenzo Admitting Unavailable Tushar Solano MD Primary Care Provider Russ Christopher DO, Charles L Primary Care Provider JONATHAN PIZARRO Admitting Unavailable JONATHAN PIZARRO Attending Unavailable SMITHA WILDE Referring Unavailable VALONE JR, TUSHAR L Primary Care Unavailable VALONE JR, TUSHAR L Referring Unavailable VALONE JR, TUSHAR L Primary Care Unavailable GENET SMALL Attending Unavailable MARIAMA VERAS Referring Unavailable VALONE JR, TUSHAR Víctor Primary Care Unavailable MARIAMA INGRAM Attending Unavailable VALONE JR, TUSHAR L Referring Unavailable VALONE JR, TUSHAR L Primary Care Unavailable LINA, DWAIN R Attending Unavailable DWAIN MILLS R Attending Unavailable DWAIN MILLS R Attending Unavailable DWAIN MILLS R Attending Unavailable TRUNG FLORES Attending Unavailable RUSS TUSHAR L Referring Unavailable Unavailable Unavailable Unavailable Allergies Allergy Classification Reported Allergen(s) Allergy Type Date of Onset Reaction(s) Facility (13 sources) atorvastatin; Translations: [atorvastatin] Drug Allergy 06-18-20 16 [facility], [facility] (12 sources) Cefadroxil; Translations: [cefadroxil] Drug Allergy 06-18-20 16 [facility] (14 sources) Codeine; Translations: [Codeine] Drug Allergy 10-12-19 15 Hives, Hallucinations , [facility] (3 sources) Dipyridamole; Translations: [dipyridamole] Drug Allergy 05-30-20 21 Unknown Reaction [facility] (6 sources) Fenofibrate; Translations: [fenofibrate] Drug Allergy 06-18-20 16 [facility] (12 sources) fluvoxaMINE; Translations: [fluvoxamine] Drug Allergy 06-18-20 16 [facility] (12 sources) nefazodone; Translations: [nefazodone] Drug Allergy 06-18-20 16 [facility] (12 sources) Niacin; Translations: [niacin] Drug Allergy 06-18-20 16 [facility] (6 sources) Simvastatin; Translations: [simvastatin] Drug Allergy 05-30-20 21 [facility] (1 source) Aspirin / Dipyridamole Drug Allergy 07-14-19 13 [facility] (1 source) Cefadroxil Drug Allergy 10-12-19 15 [facility] (1 source) Dextroamphetamine Drug Allergy 10-12-19 15 [facility] (1 source) Fenofibrate Drug Allergy 10-12-19 15 [facility] (1 source) fluvoxaMINE Drug Allergy 10-12-19 15 [facility] (1 source) nefazodone Drug Allergy 10-12-19 15 [facility] (1 source) Niacin Drug Allergy 10-12-19 15 [facility] (1 source) Simvastatin Drug Allergy 10-12-19 15 [facility] (3 sources) Aspirin / Dipyridamole Drug Allergy 04-08-20 23 Other [facility] Work Phone: (3 sources) Fluconazole Allergy to substance 04-08-20 23 Rash [facility] (3 sources) Aspirin / Dipyridamole; Translations: [ASPIRIN-DIPYRIDAMOL E] Drug Allergy 06-18-20 16 [facility] Work Phone: (6 sources) Fenofibrate; Translations: [FENOFIBRATE MICRONIZED] Drug Allergy 06-18-20 16 [facility] (4 sources) Metoprolol; Translations: [METOPROLOL] Drug Allergy 09-09-19 24 Other (See Comments) [facility] Medications Current Medications Medication Drug Class(es) Dates [...] morning. 90 tablet 2 10/16/2023 Active Start: 04-04-2024 take 1 tablet by shaun th in [...] Start: 11-25-2022 take 2 tablets by mo [facility] once daily calcium citrate 250 mg calcium [...] mg/ml ophthalmic solution (3 sources) Plasma Volume Union Organizer, Non-Standardized Chemical Allergen Artificial Tear Solution (Soothe [...] by mouth every week Ergocalciferol 1.25 MG (17526 UT) capsule Take 1 capsule by mouth [...] take 1 tablet by mouth at [facility] ferrous sulfate 325 (65 Fe) MG EC [...] Anti-coagulant Start: 10-13-2023 End: 10-14-2023 heparin infusion 30025 units/500 mL in 0.45% NaCl (50 units/mL [...] graft with unstable angina pectoris, unspecified whether [place] or transplanted heart ([facility]) Take 1 tablet (1,000 mg [...] Coronary arteriosclerosis; Translations: [Atherosclerotic heart disease of [place] coronary artery without angina pectoris] Onset: 10-19-2020 03-05-2023 Chronic Coronary atherosclerosis and other heart disease (1 source) Coronary atherosclerosis and other heart disease; Translations: [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 [...] encounter Episodic Other aftercare (1 source) 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; Translations: [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] Onset: 07-21-2022 Episodic Other [...] Anion gap [Moles/Vol] 15 mmol/L Normal 5-15 [facility] Comment on above: Performed By: #### P INR, 73211-7, 718-7, PLTCT, BMP, 21793-5 #### [facility] ([id number]) [address], [address] [place] [address] Calcium [Mass/Vol] 8.0 mg/dL Low 8.5-10.5 [facility] Comment on above: Performed By: #### P INR, 47906-3, 718-7, PLTCT, BMP, 25429-4 #### [facility] ([id number]) [address], [address] [place] [address] Chloride [Moles/Vol] 97 mmol/L Low 98-109 [facility] Comment on above: Performed By: #### P INR, 76573-4, 718-7, PLTCT, BMP, 49694-0 #### [facility] ([id number]) [address], [address] [place] [address] CO2 [Moles/Vol] 28 mmol/L Normal 22-32 [facility] Comment on above: Performed By: #### P INR, 91570-3, 718-7, PLTCT, BMP, 77079-4 #### [facility] ([id number]) [address], [address] [address] Creatinine [Mass/Vol] 0.88 mg/dL Normal 0.40-1.00 [facility] Comment on above: Result Comment: METH OD TRACEABLE TO IDMS STANDARD Performed By: #### P INR, 31043-5, 718-7, PLTCT, BMP, 62176-8 #### [facility] ([id number]) [address], [address] [address] GFR/1.73 sq M.predicted among non-blacks MDRD (S/P/Bld) [Vol rate/Area] 71 mL/min/{1.73_m2} Normal >59 [facility] Comment on above: Result Comment: Reported eGFR is based on the CKD-EPI 2020 equation that does not use a race coefficient. Performed By: #### P INR, 21644-6, 718-7, PLTCT, BMP, 63187-2 #### [facility] ([id number]) [address], [address] [address] Glucose [Mass/Vol] 138 mg/dL High 65-99 [facility] Comment on above: Performed By: #### P INR, 05746-7, 718-7, PLTCT, BMP, 20480-0 #### [facility] ([id number]) [address] [address] Potassium [Moles/Vol] 4.8 mmol/L Normal 3.5-5.0 [facility] Comment on above: Result Comment: SPEC IMEN HEMOLYZED, RESULTS INCREASED MODERATELY HEMOLYZED Performed By: #### P INR, 68132-8, 718-7, PLTCT, BMP, 86165-4 #### [facility] ([id number]) [address], [address] [place] [address] Sodium [Moles/Vol] 140 mmol/L Normal 134-146 [facility] Comment on above: Performed By: #### P INR, 44226-6, 718-7, PLTCT, BMP, 94384-8 #### [facility] ([id number]) [address], [address] [place] [address] Urea nitrogen [Mass/Vol] 20 mg/dL Normal 5-27 [facility] Comment on above: Performed By: #### P INR, 01894-7, 718-7, PLTCT, BMP, 89660-1 #### [facility] ([id number]) [address], [address] [place] [address] Basic Metabolic Panelon - Anion gap [Moles/Vol] 15 mmol/L 5 - 15 mmol/L [facility] Calcium [Mass/Vol] 8.0 mg/dL Low 8.5 - 10. 5 mg/dL [facility] Chloride [Moles/Vol] 97 mmol/L Low 98 - 109 mmol/L [facility] CO2 [Moles/Vol] 28 mmol/L 22 - 32 mmol/L [facility] Creatinine [Mass/Vol] 0.88 mg/dL 0.40 - 1.00 mg/dL [facility] Comment on above: METHOD TRACEABLE TO IDDE STANDARD eGFR (CKD-EPI)non-race dependent 71 - PINF [facility] Comment on above: Reported eGFR is based on the CKD-EPI 2020 equation that does not use a race coefficient. Glucose [Mass/Vol] 138 mg/dL High 65 - 99 mg/dL [facility] Potassium [Moles/Vol] 4.8 mmol/L 3.5 - 5.0 mmol/L [facility] Comment on above: SPECIMEN HEMOLYZED, RESULTS INCREASED MODERATELY HEMOLYZED Sodium [Moles/Vol] 140 mmol/L 134 - 146 mmol/L [facility] Urea nitrogen [Mass/Vol] 20 mg/dL 5 - 27 mg/dL [facility] CBC AND AUTO DIFFon 10-15-19 ABSOLUTE BASOPHIL 0.0 X10E9/L Normal 0.0-0.2 [facility] Comment on above: Performed By: #### P INR, 02406-6, 718-7, PLTCT, BMP, 67516-2 #### [facility] ([id number]) [address], [address] [place] [address] ABSOLUTE NEUTROPHIL 4.6 X10E9/L Normal 1.5-6.6 [facility] Comment on above: Performed By: #### P INR, 76219-0, 718-7, PLTCT, BMP, 36850-9 #### [facility] ([id number]) [address], [address] [address] Basophils/100 WBC (Bld) 0.4 % Normal [facility] Comment on above: Performed By: #### P INR, 52177-1, 718-7, PLTCT, BMP, 23773-1 #### [facility] ([id number]) [address], [address] [place] [address] Eosinophils (Bld) [#/Vol] 0.0 10*3/uL Normal 0.0-0.4 [facility] Comment on above: Performed By: #### P INR, 36411-2, 718-7, PLTCT, BMP, 98819-6 #### [facility] ([id number]) [address], [address] [place] [address] Eosinophils/100 WBC (Bld) 0.3 % Normal [facility] Comment on above: Performed By: #### P INR, 32474-2, 718-7, PLTCT, BMP, 87253-0 #### [facility] ([id number]) [address], [address] [address] Erythrocyte distribution width (RBC) [Ratio] 12.7 % Normal 11.5-15.0 [facility] Comment on above: Performed By: #### P INR, 74187-7, 718-7, PLTCT, BMP, 10626-6 #### [facility] ([id number]) [address], [address] [place] [address] Hematocrit (Bld) [Volume fraction] 38.1 % Normal 35-47 [facility] Comment on above: Performed By: #### P INR, 62974-4, 718-7, PLTCT, BMP, 92500-5 #### [facility] ([id number]) [address], [facility] [address] [place] [address] Lymphocytes (Bld) [#/Vol] 2.2 10*3/uL Normal 1.0-3.5 [facility] Comment on above: Performed By: #### P INR, 49575-2, 718-7, PLTCT, BMP, 73025-9 #### [facility] ([id number]) [address] [address] [place] [address] Lymphocytes/100 WBC (Bld) 30.4 % Normal [facility] Comment on above: Performed By: #### P INR, 75501-6, 8-7, PLTCT, BMP, 18468-0 #### [facility] ([id number]) [address] [address] [place] [address] MCH (RBC) [Entitic mass] 34.3 pg High 27-34 [facility] Comment on above: Performed By: #### P INR, 40520-1, 718-7, PLTCT, BMP, 40109-3 #### [facility] ([id number]) [address] [address] [place] [address] MCHC (RBC) [Mass/Vol] 33.3 g/dL Normal 32-36 [facility] Comment on above: Performed By: #### P INR, 97137-9, 718-7, PLTCT, BMP, 79181-5 #### [facility] ([id number]) [address], [facility] [address] [place] [address] MCV (RBC) [Entitic vol] 103 fL High 80-100 [facility] Comment on above: Performed By: #### P INR, 29524-8, 718-7, PLTCT, BMP, 74518-9 #### [facility] ([id number]) [address], [address] [place] [address] Monocytes (Bld) [#/Vol] 0.4 10*3/uL Normal 0-0.9 [facility] Comment on above: Performed By: #### P INR, 57457-5, 718-7, PLTCT, BMP, 63814-2 #### [facility] ([id number]) [address], [facility] [address] [place] [address] Monocytes/100 WBC (Bld) 6.0 % Normal [facility] Comment on above: Performed By: #### P INR, 25875-5, 718-7, PLTCT, BMP, 44021-0 #### [facility] ([id number]) [address], [address] [place] [address] Neutrophils/100 WBC (Bld) 62.9 % Normal [facility] Comment on above: Performed By: #### P INR, 99345-8, 718-7, PLTCT, BMP, 40670-2 #### [facility] ([id number]) [address], [address] [place] [address] Platelet mean volume (Bld) [Entitic vol] 8.7 fL Normal 7-12 [facility] Comment on above: Performed By: #### P INR, 98092-4, 718-7, PLTCT, BMP, 74986-7 #### [facility] ([id number]) [address], [address] [place] [address] Platelets (Bld) [#/Vol] 229 10*3/uL Normal 150-450 [facility] Comment on above: Performed By: #### P INR, 12701-9, 718-7, PLTCT, BMP, 65557-7 #### [facility] ([id number]) [address], [address] [place] [address] RBC COUNT 3.69 X10E12/L Low 3.80-5.20 [facility] Comment on above: Performed By: #### P INR, 80426-0, 718-7, PLTCT, BMP, 26920-3 #### [facility] ([id number]) [address], [address] [place] [address] WBC (Bld) [#/Vol] 7.3 10*3/uL Normal 4.0-11.0 [facility] Comment on above: Performed By: #### P INR, 75967-5, 718-7, PLTCT, BMP, 31683-0 #### [facility] ([id number]) [address], [address] [place] [address] CBC auto differentialon 04-0 Basophils (Bld) [#/Vol] 0.0 10*3/uL [facility] Basophils/100 WBC (Bld) 0.4 % [facility] Eosinophils (Bld) [#/Vol] 0.0 10*3/uL [facility] Eosinophils/100 WBC (Bld) 0.3 % [facility] Erythrocyte distribution width (RBC) [Ratio] 12.7 % 11.5 - 15.0 % [facility] Hematocrit (Bld) [Volume fraction] 38.1 % 35 - 47 % [facility] Hemoglobin (Bld) [Mass/Vol] 12.7 g/dL 11.7 - 15.5 g/dL [facility] Interpretation and review of laboratory results Abnormal [facility] Lymphocytes (Bld) [#/Vol] 2.2 10*3/uL [facility] Lymphocytes/100 WBC (Bld) 30.4 % [facility] MCH (RBC) [Entitic mass] 34.3 pg High 27 - 34 pg [facility] MCHC (RBC) [Mass/Vol] 33.3 g/dL 32 - 36 g/dL [facility] MCV (RBC) [Entitic vol] 103 fL High 80 - 100 fL [facility] Monocytes (Bld) [#/Vol] 0.4 10*3/uL [facility] Monocytes/100 WBC (Bld) 6.0 % [facility] Neutrophils (Bld) [#/Vol] 4.6 10*3/uL [facility] Neutrophils/100 WBC (Bld) 62.9 % [facility] Platelet mean volume (Bld) [Entitic vol] 8.7 fL 7 - 12 fL [facility] Platelets (Bld) [#/Vol] 229 10*3/uL [facility] RBC (Bld) [#/Vol] 3.69 10*6/uL Low [facility] WBC corrected for nucl RBC Auto (Bld) [#/Vol] 7.3 [facility] CREATININEon 10-15-2023 Creatinine [Mass/Vol] 0.81 mg/dL Normal 0.40-1.00 [facility] Comment on above: Result Comment: METH OD TRACEABLE TO IDMS STANDARD Performed By: #### P INR, 39909-6, 718-7, PLTCT, BMP, 02199-8 #### [facility] ([id number]) [address] [facility] [address] [facility] [address] [place] [address] GFR/1.73 sq M.predicted among non-blacks MDRD (S/P/Bld) [Vol rate/Area] 79 mL/min/{1.73_m2} Normal >59 [facility] Comment on above: Result Comment: Reported eGFR is based on the CKD-EPI 2020 equation that does not use a race coefficient. Performed By: #### P INR, 87470-5, 718-7, PLTCT, BMP, 56201-6 #### [facility] ([id number]) [address] [place] [address] Creatinine includes GFR, ser umon 10-15-2023 Creatinine [Mass/Vol] 0.81 mg/dL 0.40 - 1.00 mg/dL [facility] Comment on above: METHOD TRACEABLE TO IDDE STANDARD eGFR (CKD-EPI)non-race dependent 79 - PINF [facility] Comment on above: Reported eGFR is based on the CKD-EPI 2020 equation that does not use a race coefficient. HEMOGLOBINon 10-15-2023 Hemoglobin (Bld) [Mass/Vol] 12.7 g/dL Normal 11.7-15.5 [facility] Comment on above: Performed By: #### P INR, 28250-7, 718-7, PLTCT, BMP, 68591-6 #### [facility] ([id number]) [address] [place] [address] Hemoglobinon 10-15-2023 Hemoglobin (Bld) [Mass/Vol] 12.7 g/dL 11.7 - 15.5 g/dL [facility] Ionized magnesiumon 10-15-19 Magnesium Ionized ISE (Bld) [Moles/Vol] 0.53 mmol/L 0.45 - 0.74 mmol/L [facility] Comment on above: NEW REFERENCE RANGE MAGNESIUMon 10-15-2023 Magnesium [Mass/Vol] 1.8 mg/dL Normal 1.8-2.6 [facility] Comment on above: Result Comment: SPEC IMEN HEMOLYZED, RESULTS INCREASED MARKEDLY HEMOLYZED Performed By: #### P INR, 18018-5, 718-7, PLTCT, BMP, 91490-8 #### [facility] ([id number]) [address], [address] [place] [address] Magnesiumon 10-15-2023 Magnesium [Mass/Vol] 1.8 mg/dL 1.8 - 2.6 mg/dL [facility] Comment on above: SPECIMEN HEMOLYZED, RESULTS INCREASED MARKEDLY HEMOLYZED Magnesium Ionized ISE (Bld) [Moles/Vol]on 10-15-2023 Magnesium [Moles/Vol] 0.53 mmol/L Normal 0.45-0.74 [facility] Comment on above: Result Comment: NEW REFERENCE RANGE Performed By: #### P INR, 90507-0, 718-7, PLTCT, BMP, 09375-4 #### [facility] ([id number]) [address], [address] [place] [address] [facility] No Panel Informationon 10-14 Interpretation and review of laboratory results Abnormal [facility] PHOSPHORUSon 10-15-2023 Phosphate [Mass/Vol] 5.7 mg/dL High 2.4-4.9 [facility] Comment on above: Result Comment: SPEC IMEN HEMOLYZED, RESULTS INCREASED MODERATELY HEMOLYZED Performed By: #### P INR, 04102-4, 718-7, PLTCT, BMP, 12677-7 #### [facility] ([id number]) [address], [address] [place] [address] PLATELET COUNT AND MPVon Platelet mean volume (Bld) [Entitic vol] 8.3 fL Normal 7-12 [facility] Comment on above: Performed By: #### P INR, 49350-5, 718-7, PLTCT, BMP, 40998-6 #### [facility] ([id number]) [address], [address] [place] [address] Platelets (Bld) [#/Vol] 219 10*3/uL Normal 150-450 [facility] Comment on above: Performed By: #### P INR, 43615-7, 718-7, PLTCT, BMP, 30075-4 #### [facility] ([id number]) [address], [address] [place] [address] Phosphoruson 10-15-2023 Phosphate [Mass/Vol] 5.7 mg/dL High 2.4 - 4.9 mg/dL [facility] Comment on above: SPECIMEN HEMOLYZED, RESULTS INCREASED MODERATELY HEMOLYZED Platelet counton 10-15-2023 Platelet mean volume (Bld) [Entitic vol] 8.3 fL 7 - 12 fL [facility] Platelets (Bld) [#/Vol] 219 10*3/uL [facility] Chest Single viewon 10-14 Kay Dunn DO - 10/15/2023 Procedure: Chest x-ray performed Number of views:AP view History:Hypoxia Comparison:10/12/2023 Findings: The heart and mediastinal silhouette are stable. There is pulmonary vascular congestion. There are no focal consolidations. There is a small left pleural effusion. There is no pneumothorax Impression: Pulmonary vascular congestion. Finalized by Kay Dunn DO on 10/15/2023 10:48 AM [facility] [employer] Radiology Study observation (narrative) Digital Folio [facility] [employer] XR Chest Single viewOrdered By: Kay Dunn on 10-15-2023 [facility] Work Phone: Anti XA unfractionated hepar inon 10-14-2023 Heparin unfractionated Chromogenic method Qn (PPP) Low [facility] Comment on above: Optimal time for marky ting is 6 hrs post dosage This test is specific for monitoring patients on UFH, and is not recommended for use with other Anti-Xa medications. Heparin unfractionated Chromogenic method Qn (PPP) 0.68 [facility] Comment on above: Optimal time for marky ting is 6 hrs post dosage This test is specific for monitoring patients on UFH, and is not recommended for use with other Anti-Xa medications. BASIC METABOLIC PANLon 10-13 Anion gap [Moles/Vol] 11 mmol/L Normal 5-15 [facility] Comment on above: Performed By: #### P INR, 23471-8, 718-7, PLTCT, BMP, 75770-9 #### [facility] ([id number]) [address] [place] [address] Calcium [Mass/Vol] 7.4 mg/dL Low 8.5-10.5 [facility] Comment on above: Performed By: #### P INR, 54247-5, 718-7, PLTCT, BMP, 10168-8 #### [facility] ([id number]) [address], [address] [place] [address] Chloride [Moles/Vol] 100 mmol/L Normal 98-109 [facility] Comment on above: Performed By: #### P INR, 92778-5, 718-7, PLTCT, BMP, 09151-6 #### [facility] ([id number]) [address], [address] [place] [address] CO2 [Moles/Vol] 30 mmol/L Normal 22-32 [facility] Comment on above: Performed By: #### P INR, 94217-7, 718-7, PLTCT, BMP, 14738-3 #### [facility] ([id number]) [address], [address] [place] [address] Creatinine [Mass/Vol] 1.05 mg/dL High 0.40-1.00 [facility] Comment on above: Result Comment: METH OD TRACEABLE TO IDMS STANDARD Performed By: #### P INR, 09153-0, 718-7, PLTCT, BMP, 16701-7 #### [facility] ([id number]) [address], [address] [place] [address] GFR/1.73 sq M.predicted among non-blacks MDRD (S/P/Bld) [Vol rate/Area] 58 mL/min/{1.73_m2} Low >59 [facility] Comment on above: Result Comment: Reported eGFR is based on the CKD-EPI 2020 equation that does not use a race coefficient. Performed By: #### P INR, 42715-8, 718-7, PLTCT, BMP, 11291-8 #### [facility] ([id number]) [address], [address] [place] [address] Glucose [Mass/Vol] 122 mg/dL High 65-99 [facility] Comment on above: Performed By: #### P INR, 81844-0, 718-7, PLTCT, BMP, 68427-9 #### [facility] ([id number]) [address], [address] [place] [address] Potassium [Moles/Vol] 4.4 mmol/L Normal 3.5-5.0 [facility] Comment on above: Performed By: #### P INR, 50354-5, 718-7, PLTCT, BMP, 12707-2 #### [facility] ([id number]) [address], [address] [place] [address] Sodium [Moles/Vol] 141 mmol/L Normal 134-146 [facility] Comment on above: Performed By: #### P INR, 78034-7, 718-7, PLTCT, BMP, 27691-0 #### [facility] ([id number]) [address], [facility] [address] [place] [address] Urea nitrogen [Mass/Vol] 22 mg/dL Normal 5-27 [facility] Comment on above: Performed By: #### P INR, 87382-5, 718-7, PLTCT, BMP, 06541-5 #### [facility] ([id number]) [address], [address] [address] Basic Metabolic Panelon 04-0 Anion gap [Moles/Vol] 11 mmol/L 5 - 15 mmol/L [facility] Calcium [Mass/Vol] 7.4 mg/dL Low 8.5 - 10. 5 mg/dL [facility] Chloride [Moles/Vol] 100 mmol/L 98 - 109 mmol/L [facility] CO2 [Moles/Vol] 30 mmol/L 22 - 32 mmol/L [facility] Creatinine [Mass/Vol] 1.05 mg/dL High 0.40 - 1.00 mg/dL [facility] Comment on above: METHOD TRACEABLE TO IDMS STANDARD eGFR (CKD-EPI)non-race dependent 58 Low - PINF [facility] Comment on above: Reported eGFR is based on the CKD-EPI 2020 equation that does not use a race coefficient. Glucose [Mass/Vol] 122 mg/dL High 65 - 99 mg/dL [facility] Interpretation and review of laboratory results Abnormal [facility] Potassium [Moles/Vol] 4.4 mmol/L 3.5 - 5.0 mmol/L [facility] Sodium [Moles/Vol] 141 mmol/L 134 - 146 mmol/L [facility] Urea nitrogen [Mass/Vol] 22 mg/dL 5 - 27 mg/dL [facility] CBC without diffon Erythrocyte distribution width (RBC) [Ratio] 13.0 % 11.5 - 15.0 % [facility] Hematocrit (Bld) [Volume fraction] 37.7 % 35 - 47 % [facility] Hemoglobin (Bld) [Mass/Vol] 12.5 g/dL 11.7 - 15.5 g/dL [facility] Interpretation and review of laboratory results Abnormal [facility] MCH (RBC) [Entitic mass] 34.4 pg High 27 - 34 pg [facility] MCHC (RBC) [Mass/Vol] 33.1 g/dL 32 - 36 g/dL [facility] MCV (RBC) [Entitic vol] 104 fL High 80 - 100 fL [facility] Platelet mean volume (Bld) [Entitic vol] 8.8 fL 7 - 12 fL [facility] Platelets (Bld) [#/Vol] 207 10*3/uL [facility] RBC (Bld) [#/Vol] 3.64 10*6/uL Low [facility] WBC corrected for nucl RBC Auto (Bld) [#/Vol] 8.4 [facility] COMPLETE BLOOD COUNTon 10-13 Erythrocyte distribution width (RBC) [Ratio] 13.0 % Normal 11.5-15.0 [facility] Comment on above: Performed By: #### P INR, 61076-9, 718-7, PLTCT, BMP, 02142-4 #### [facility] ([id number]) [address], [address] [place] [address] Hematocrit (Bld) [Volume fraction] 37.7 % Normal 35-47 [facility] Comment on above: Performed By: #### P INR, 95902-2, 718-7, PLTCT, BMP, 42464-1 #### [facility] ([id number]) [address], [address] [place] [address] Hemoglobin (Bld) [Mass/Vol] 12.5 g/dL Normal 11.7-15.5 [facility] Comment on above: Performed By: #### P INR, 05579-2, 718-7, PLTCT, BMP, 01175-7 #### [facility] ([id number]) [address], [facility] [address] [place] [address] MCH (RBC) [Entitic mass] 34.4 pg High 27-34 [facility] Comment on above: Performed By: #### P INR, 51265-0, 718-7, PLTCT, BMP, 42549-8 #### [facility] ([id number]) [address], [address] [place] [address] MCHC (RBC) [Mass/Vol] 33.1 g/dL Normal 32-36 [facility] Comment on above: Performed By: #### P INR, 64698-0, 718-7, PLTCT, BMP, 02849-3 #### [facility] ([id number]) [address], [address] [place] [address] MCV (RBC) [Entitic vol] 104 fL High 80-100 [facility] Comment on above: Performed By: #### P INR, 42279-9, 718-7, PLTCT, BMP, 76590-6 #### [facility] ([id number]) [address], [address] [place] [address] Platelet mean volume (Bld) [Entitic vol] 8.8 fL Normal 7-12 [facility] Comment on above: Performed By: #### P INR, 73771-7, 718-7, PLTCT, BMP, 00828-1 #### [facility] ([id number]) [address], [address] [place] [address] Platelets (Bld) [#/Vol] 207 10*3/uL Normal 150-450 [facility] Comment on above: Performed By: #### P INR, 22376-5, 718-7, PLTCT, BMP, 94939-0 #### [facility] ([id number]) [address], [address] [place] [address] RBC COUNT 3.64 X10E12/L Low 3.80-5.20 [facility] Comment on above: Performed By: #### P INR, 60482-0, 718-7, PLTCT, BMP, 15239-9 #### [facility] ([id number]) [address], [address] [place] [address] WBC (Bld) [#/Vol] 8.4 10*3/uL Normal 4.0-11.0 [facility] Comment on above: Performed By: #### P INR, 94345-1, 718-7, PLTCT, BMP, 86111-3 #### [facility] ([id number]) [address], [address] [place] [address] Calcium.ionized (Bld) [Mass/ Vol]on 10-14-2023 IONIZED CALCIUM 4.3 mg/dL Low 4.5-5.3 [facility] Comment on above: Performed By: #### P INR, 60790-5, 718-7, PLTCT, BMP, 89329-4 #### [facility] ([id number]) [address], [address] [place] [address] Interpretation and review of laboratory results Abnormal [facility] IONIZED CALCIUM 3.9 mg/dL Low 4.5-5.3 [facility] Comment on above: Performed By: #### P INR, 04736-1, 718-7, PLTCT, BMP, 37786-8 #### [facility] ([id number]) [address], [address] [place] [address] Interpretation and review of laboratory results Abnormal [facility] IONIZED CALCIUM 4.1 mg/dL Low 4.5-5.3 [facility] Comment on above: Performed By: #### P INR, 18564-6, 718-7, PLTCT, BMP, 08894-0 #### [facility] ([id number]) [address], [address] [place] [address] Interpretation and review of laboratory results Abnormal [facility] Coronary angiography perform edon 10-14-2023 Addendum by [...] the distal LAD after that reconstitutes via almi-qy-ezoy collaterals. The vessel is extremely small and not amenable to PCI. Intervention No interventions have been documented. Right Atrium Normal left and right heart filling pressures. Normal pulmonary arterial pressure mildly elevated left ventricular end-diastolic pressure normal cardiac output and cardiac index. [facility] Radiology Study observation (narrative) [facility] ECG 12 leadon 10-14-2023 TRACEMASTERVUE [facility] HGB A1C (GLYCO-HGB)on 2023 Glucose [Mass/Vol] 91 mg/dL Normal [facility] Comment on above: Performed By: #### P INR, 13569-3, 718-7, PLTCT, BMP, 16463-5 #### [facility] ([id number]) [address], [address] [place] [address] HbA1c (Bld) [Mass fraction] 4.8 % Normal 4.4-5.6 [facility] Comment on above: Result Comment: NOTE ADA Guidelines Result HgbA1c Normal : less than 5.7 % Prediabetes : 5.7 % to 6.4 % Diabetes : > 6.4 % Use with caution in patients with abnormal hemoglobin variants as the half-life of red blood cells and in vivo glycation rates are affected. Performed By: #### P INR, 30269-7, 718-7, PLTCT, BMP, 67031-7 #### [facility] ([id number]) [address], [address] [place] [address] Hemoglobin A1con 10-14-2023 Average glucose Estimated from glycated hemoglobin (Bld) [Mass/Vol] 91 mg/dL [facility] HbA1c (Bld) [Mass fraction] 4.8 % 4.4 - 5.6 % [facility] Comment on above: NOTE ADA Guidelines Result HgbA1c Normal : less than 5.7 % Prediabetes : 5.7 % to 6.4 % Diabetes : > 6.4 % Use with caution in patients with abnormal hemoglobin variants as the half-life of red blood cells and in vivo glycation rates are affected. [facility] Heparin unfractionated Chrom ogenic method Qn (PPP)on 10-14-2023 ANTI XA UFH <0.04 Low 0.30-0.70 [facility] Comment on above: Result Comment: Opti mal time for testing is 6 hrs post dosage This test is specific for monitoring patients on UFH, and is not recommended for use with other Anti-Xa medications. Performed By: #### P INR, 99357-6, 718-7, PLTCT, BMP, 51808-1 #### [facility] ([id number]) [address], [address] [place] [address] Interpretation and review of laboratory results Abnormal [facility] ANTI XA UFH 0.68 IU/mL Normal 0.30-0.70 [facility] Comment on above: Result Comment: Opti mal time for testing is 6 hrs post dosage This test is specific for monitoring patients on UFH, and is not recommended for use with other Anti-Xa medications. Performed By: #### P INR, 69249-7, 718-7, PLTCT, BMP, 87349-6 #### [facility] ([id number]) [address], [address] [place] [address] [facility] Ionized calciumon 10-14-2023 Calcium.ionized (Bld) [Mass/Vol] 4.3 mg/dL Low 4.5 - 5.3 mg/dL [facility] Calcium.ionized (Bld) [Mass/Vol] 3.9 mg/dL Low 4.5 - 5.3 mg/dL [facility] Calcium.ionized (Bld) [Mass/Vol] 4.1 mg/dL Low 4.5 - 5.3 mg/dL [facility] Ionized magnesiumon 10-14-19 Magnesium Ionized ISE (Bld) [Moles/Vol] 0.54 mmol/L 0.45 - 0.74 mmol/L [facility] Comment on above: NEW REFERENCE RANGE Lipid 1996 panelon 4 Cholesterol [Mass/Vol] 135 mg/dL Low 150-200 [facility] Comment on above: Performed By: #### P INR, 10097-1, 718-7, PLTCT, BMP, 06739-7 #### [facility] ([id number]) [address], [address] [place] [address] Cholesterol in HDL [Mass/Vol] 59 mg/dL Normal >39 [facility] Comment on above: Result Comment: HDL <40 mg/dL - High Risk HDL > or = 40mg/dL- Desirable HDL >60 mg/dL - Negative Risk Performed By: #### P INR, 12634-0, 718-7, PLTCT, BMP, 42593-6 #### [facility] ([id number]) [address] [place] [address], [address] [place] [address] Cholesterol in LDL [Mass/Vol] 46 mg/dL Normal <130 [facility] Comment on above: Result Comment: LDL <100 mg/dL - Desirable LDL >160 mg/dL - High Risk Performed By: #### P INR, 55814-3, 718-7, PLTCT, BMP, 65314-4 #### [facility] ([id number]) [facility] [address] [place] [address] Cholesterol in VLDL [Mass/Vol] 30 mg/dL Normal 0-30 [facility] Comment on above: Performed By: #### P INR, 53295-3, 718-7, PLTCT, BMP, 41792-8 #### [facility] ([id number]) [address], [address] [place] [address] CHOLESTEROL:HDL 2.3 Normal 1.0-5.0 [facility] Comment on above: Performed By: #### P INR, 65506-7, 718-7, PLTCT, BMP, 22682-0 #### [facility] ([id number]) [address], [address] [place] [address] Triglyceride [Mass/Vol] 150 mg/dL Normal 27-150 [facility] Comment on above: Performed By: #### P INR, 19516-3, 718-7, PLTCT, BMP, 25024-1 #### [facility] ([id number]) [address], [address] [address] Cholesterol [Mass/Vol] 135 mg/dL Low 150 - 200 mg/dL [facility] Cholesterol in HDL [Mass/Vol] 59 mg/dL 39 - PINF mg/dL [facility] Comment on above: HDL <40 mg/dL - High Risk HDL > or = 40mg/dL- Desirable HDL >60 mg/dL - Negative Risk Cholesterol in LDL [Mass/Vol] 46 mg/dL NINF - 130 mg/dL [facility] Comment on above: LDL <100 mg/dL - Desirable LDL >160 mg/dL - High Risk Cholesterol in VLDL [Mass/Vol] 30 mg/dL 0 - 30 mg/dL [facility] Cholesterol.total/ Cholesterol in HDL [Mass ratio] 2.3 {ratio} 1.0 - 5.0 [facility] Interpretation and review of laboratory results Abnormal [facility] Triglyceride [Mass/Vol] 150 mg/dL 27 - 150 mg/dL [facility] MAGNESIUMon 10-14-2023 Magnesium [Mass/Vol] 1.8 mg/dL Normal 1.8-2.6 [facility] Comment on above: Performed By: #### P INR, 49504-2, 718-7, PLTCT, BMP, 44667-6 #### [facility] ([id number]) [address], [address] [place] [address] Magnesiumon 10-14-2023 Magnesium [Mass/Vol] 1.8 mg/dL 1.8 - 2.6 mg/dL [facility] Magnesium Ionized ISE (Bld) [Moles/Vol]on 10-14-2023 Magnesium [Moles/Vol] 0.54 mmol/L Normal 0.45-0.74 [facility] Comment on above: Result Comment: NEW REFERENCE RANGE Performed By: #### P INR, 33841-5, 718-7, PLTCT, BMP, 24159-1 #### [facility] ([id number]) [address], [address] [place] [address] [facility] No Panel Informationon 10-13 [facility] APTTon 10-13-2023 aPTT Coag (PPP) [Time] 48 s [facility] Anti XA unfractionated hepar inon 10-13-2023 Heparin unfractionated Chromogenic method Qn (PPP) 0.74 [facility] Comment on above: Optimal time for marky ting is 6 hrs post dosage This test is specific for monitoring patients on UFH, and is not recommended for use with other Anti-Xa medications. Heparin unfractionated Chromogenic method Qn (PPP) 0.69 [facility] Comment on above: Optimal time for marky ting is 6 hrs post dosage This test is specific for monitoring patients on UFH, and is not recommended for use with other Anti-Xa medications. Heparin unfractionated Chromogenic method Qn (PPP) 0.72 [facility] Comment on above: Optimal time for marky ting is 6 hrs post dosage This test is specific for monitoring patients on UFH, and is not recommended for use with other Anti-Xa medications. BASIC METABOLIC PANLon 10-12 Anion gap [Moles/Vol] 13 mmol/L Normal 5-15 [facility] Comment on above: Performed By: #### P INR, 78443-6, 718-7, PLTCT, BMP, 65188-3 #### [facility] ([id number]) [address], [address] [place] [address] Calcium [Mass/Vol] 6.3 mg/dL Critically low 8.5-10.5 [facility] Comment on above: Performed By: #### P INR, 74030-6, 718-7, PLTCT, BMP, 03018-4 #### [facility] ([id number]) [address], [address] [place] [address] Chloride [Moles/Vol] 100 mmol/L Normal 98-109 [facility] Comment on above: Performed By: #### P INR, 38447-6, 718-7, PLTCT, BMP, 86077-9 #### [facility] ([id number]) [address] [place] [address] CO2 [Moles/Vol] 30 mmol/L Normal 22-32 [facility] Comment on above: Performed By: #### P INR, 39429-8, 718-7, PLTCT, BMP, 74570-6 #### [facility] ([id number]) [address], [address] [place] [address] Creatinine [Mass/Vol] 0.79 mg/dL Normal 0.40-1.00 [facility] Comment on above: Result Comment: METH OD TRACEABLE TO IDMS STANDARD Performed By: #### P INR, 20446-9, 718-7, PLTCT, BMP, 76246-1 #### [facility] ([id number]) [address], [address] [place] [address] GFR/1.73 sq M.predicted among non-blacks MDRD (S/P/Bld) [Vol rate/Area] 81 mL/min/{1.73_m2} Normal >59 [facility] Comment on above: Result Comment: Reported eGFR is based on the CKD-EPI 2020 equation that does not use a race coefficient. Performed By: #### P INR, 90460-5, 718-7, PLTCT, BMP, 91916-3 #### [facility] ([id number]) [address] [place] [address] Glucose [Mass/Vol] 157 mg/dL High 65-99 [facility] Comment on above: Performed By: #### P INR, 56259-0, 718-7, PLTCT, BMP, 59541-1 #### [facility] ([id number]) [address], [facility] [address] [place] [address] Potassium [Moles/Vol] 3.4 mmol/L Low 3.5-5.0 [facility] Comment on above: Performed By: #### P INR, 84947-8, 718-7, PLTCT, BMP, 93389-1 #### [facility] ([id number]) [address] [place] [address] Sodium [Moles/Vol] 143 mmol/L Normal 134-146 [facility] Comment on above: Performed By: #### P INR, 91601-8, 718-7, PLTCT, BMP, 06441-7 #### [facility] ([id number]) [address] [place] [address] Urea nitrogen [Mass/Vol] 16 mg/dL Normal 5-27 [facility] Comment on above: Performed By: #### P INR, 21510-4, 718-7, PLTCT, BMP, 42675-4 #### [facility] ([id number]) [address], [facility] [address] [place] [address] Anion gap [Moles/Vol] 15 mmol/L Normal 5-15 [facility] Comment on above: Performed By: #### P INR, 13969-9, 718-7, PLTCT, BMP, 90699-4 #### [facility] ([id number]) [address], [address] [place] [address] Calcium [Mass/Vol] 6.5 mg/dL Critically low 8.5-10.5 [facility] Comment on above: Performed By: #### P INR, 60679-0, 718-7, PLTCT, BMP, 87554-3 #### [facility] ([id number]) [address], [address] [place] [address] Chloride [Moles/Vol] 100 mmol/L Normal 98-109 [facility] Comment on above: Performed By: #### P INR, 99160-5, 718-7, PLTCT, BMP, 94166-1 #### [facility] ([id number]) [address], [address] [place] [address] CO2 [Moles/Vol] 30 mmol/L Normal 22-32 [facility] Comment on above: Performed By: #### P INR, 65934-2, 718-7, PLTCT, BMP, 33056-1 #### [facility] ([id number]) [address], [address] [place] [address] Creatinine [Mass/Vol] 0.88 mg/dL Normal 0.40-1.00 [facility] Comment on above: Result Comment: METH OD TRACEABLE TO IDMS STANDARD Performed By: #### P INR, 42517-5, 718-7, PLTCT, BMP, 15808-6 #### [facility] ([id number]) [address], [address] [place] [address] GFR/1.73 sq M.predicted among non-blacks MDRD (S/P/Bld) [Vol rate/Area] 71 mL/min/{1.73_m2} Normal >59 [facility] Comment on above: Result Comment: Reported eGFR is based on the CKD-EPI 2020 equation that does not use a race coefficient. Performed By: #### P INR, 89730-2, 718-7, PLTCT, BMP, 43639-6 #### [facility] ([id number]) [address], [address] [place] [address] Glucose [Mass/Vol] 154 mg/dL High 65-99 [facility] Comment on above: Performed By: #### P INR, 28716-1, 718-7, PLTCT, BMP, 87554-2 #### [facility] ([id number]) [address], [address] [place] [address] Potassium [Moles/Vol] 3.4 mmol/L Low 3.5-5.0 [facility] Comment on above: Performed By: #### P INR, 54083-7, 718-7, PLTCT, BMP, 49377-9 #### [facility] ([id number]) [address], [address] [place] [address] Sodium [Moles/Vol] 145 mmol/L Normal 134-146 [facility] Comment on above: Performed By: #### P INR, 78349-4, 718-7, PLTCT, BMP, 83306-5 #### [facility] ([id number]) [address], [address] [place] [address] Urea nitrogen [Mass/Vol] 16 mg/dL Normal 5-27 [facility] Comment on above: Performed By: #### P INR, 33252-0, 718-7, PLTCT, BMP, 48835-8 #### [facility] ([id number]) [address], [address] [place] [address] Basic Metabolic Panelon 04-0 Anion gap [Moles/Vol] 13 mmol/L 5 - 15 mmol/L [facility] Calcium [Mass/Vol] 6.3 mg/dL Critically low 8.5 - 1 0.5 mg/dL [facility] Chloride [Moles/Vol] 100 mmol/L 98 - 109 mmol/L [facility] CO2 [Moles/Vol] 30 mmol/L 22 - 32 mmol/L [facility] Creatinine [Mass/Vol] 0.79 mg/dL 0.40 - 1.00 mg/dL [facility] Comment on above: METHOD TRACEABLE TO [facility] STANDARD eGFR (CKD-EPI)non-race dependent 81 - PINF [facility] Comment on above: Reported eGFR is based on the CKD-EPI 2021 equation that does not use a race coefficient. Glucose [Mass/Vol] 157 mg/dL High 65 - 99 mg/dL [facility] Interpretation and review of laboratory results Abnormal [facility] Potassium [Moles/Vol] 3.4 mmol/L Low 3.5 - 5.0 mmol/L [facility] Sodium [Moles/Vol] 143 mmol/L 134 - 146 mmol/L [facility] Urea nitrogen [Mass/Vol] 16 mg/dL 5 - 27 mg/dL [facility] Anion gap [Moles/Vol] 15 mmol/L 5 - 15 mmol/L [facility] Calcium [Mass/Vol] 6.5 mg/dL Critically low 8.5 - 1 0.5 mg/dL [facility] Chloride [Moles/Vol] 100 mmol/L 98 - 109 mmol/L [facility] CO2 [Moles/Vol] 30 mmol/L 22 - 32 mmol/L [facility] Creatinine [Mass/Vol] 0.88 mg/dL 0.40 - 1.00 mg/dL [facility] Comment on above: METHOD TRACEABLE TO [facility] STANDARD eGFR (CKD-EPI)non-race dependent 71 - PINF [facility] Comment on above: Reported eGFR is based on the CKD-EPI 2021 equation that does not use a race coefficient. Glucose [Mass/Vol] 154 mg/dL High 65 - 99 mg/dL [facility] Potassium [Moles/Vol] 3.4 mmol/L Low 3.5 - 5.0 mmol/L [facility] Sodium [Moles/Vol] 145 mmol/L 134 - 146 mmol/L [facility] Urea nitrogen [Mass/Vol] 16 mg/dL 5 - 27 mg/dL [facility] CBC AND AUTO DIFFon 10-13-19 24 ABSOLUTE BASOPHIL 0.0 X10E9/L Normal 0.0-0.2 [facility] Comment on above: Performed By: #### C BCA, , THYR, 77617-3 #### [facility] ([id number]) [address], [address] [place] [address] ABSOLUTE NEUTROPHIL 4.2 X10E9/L Normal 1.5-6.6 [facility] Comment on above: Performed By: #### Berhane ÁLVAREZ, , THYR, 09895-3 #### [facility] ([id number]) [address], [address] [place] [address] Basophils/100 WBC (Bld) 0.1 % Normal [facility] Comment on above: Performed By: #### Berhane ÁLVAREZ, , THYR, 12457-7 #### [facility] ([id number]) [address], [address] [place] [address] Eosinophils (Bld) [#/Vol] 0.0 10*3/uL Normal 0.0-0.4 [facility] Comment on above: Performed By: #### Berhane BCA, , THYR, 53759-3 #### [facility] ([id number]) [address], [address] [place] [address] Eosinophils/100 WBC (Bld) 0.0 % Normal [facility] Comment on above: Performed By: #### Berhane BCA, , THYR, 86996-5 #### [facility] ([id number]) [address], [address] [place] [address] Erythrocyte distribution width (RBC) [Ratio] 12.5 % Normal 11.5-15.0 [facility] Comment on above: Performed By: #### C BCA, , THYR, 85385-9 #### [facility] ([id number]) [address], [address] [place] [address] Hematocrit (Bld) [Volume fraction] 39.2 % Normal 35-47 [facility] Comment on above: Performed By: #### Berhane BCA, , THYR, 80589-1 #### [facility] ([id number]) [address], [facility] [address] [place] [address] Hemoglobin (Bld) [Mass/Vol] 13.2 g/dL Normal 11.7-15.5 [facility] Comment on above: Performed By: #### Berhane BCA, , THYR, 94317-6 #### [facility] ([id number]) [address] [address] [place] [address] Lymphocytes (Bld) [#/Vol] 0.9 10*3/uL Low 1.0-3.5 [facility] Comment on above: Performed By: #### Berhane BCA, , THYR, 39387-6 #### [facility] ([id number]) [address] [address] [place] [address] Lymphocytes/100 WBC (Bld) 17.5 % Normal [facility] Comment on above: Performed By: #### C BCA, , THYR, 72839-7 #### [facility] ([id number]) [address], [address] [place] [address] MCH (RBC) [Entitic mass] 34.6 pg High 27-34 [facility] Comment on above: Performed By: #### C BCA, , THYR, 48464-9 #### [facility] ([id number]) [address], [address] [place] [address] MCHC (RBC) [Mass/Vol] 33.6 g/dL Normal 32-36 [facility] Comment on above: Performed By: #### Berhane ÁLVAREZ, , THYR, 03592-2 #### [facility] ([id number]) [address] [address] [place] [address] MCV (RBC) [Entitic vol] 103 fL High 80-100 [facility] Comment on above: Performed By: #### Berhane ÁLVAREZ, , THYR, 62680-7 #### [facility] ([id number]) [address], [facility] [address] [place] [address] Monocytes (Bld) [#/Vol] 0.1 10*3/uL Normal 0-0.9 [facility] Comment on above: Performed By: #### Berhane ÁLVAREZ, , THYR, 74345-6 #### [facility] ([id number]) [address], [facility] [address] [place] [address] Monocytes/100 WBC (Bld) 2.5 % Normal [facility] Comment on above: Performed By: #### Berhane BCA, , THYR, 28043-0 #### [facility] ([id number]) [address] [address] [place] [address] Neutrophils/100 WBC (Bld) 79.9 % Normal [facility] Comment on above: Performed By: #### Berhane BCA, , THYR, 57432-0 #### [facility] ([id number]) [address], [facility] [address] [place] [address] Platelet mean volume (Bld) [Entitic vol] 8.6 fL Normal 7-12 [facility] Comment on above: Performed By: #### Berhane BCA, , THYR, 94890-2 #### [facility] ([id number]) [address], [address] [place] [address] Platelets (Bld) [#/Vol] 176 10*3/uL Normal 150-450 [facility] Comment on above: Performed By: #### Berhane BCA, 58225-9, THYR, 59619-9 #### [facility] ([id number]) [address], [address] [place] [address] RBC COUNT 3.80 X10E12/L Normal 3.80-5.20 [facility] Comment on above: Performed By: #### Berhane ÁLVAREZ, 84124-3, THYR, 06499-0 #### [facility] ([id number]) [address], [facility] [address] [place] [address] WBC (Bld) [#/Vol] 5.3 10*3/uL Normal 4.0-11.0 [facility] Comment on above: Performed By: #### Berhane ÁLVAREZ, , THYR, 76872-9 #### [facility] ([id number]) [address], [address] [place] [address] CBC auto differentialon 04-0 Basophils (Bld) [#/Vol] 0.0 10*3/uL [facility] Basophils/100 WBC (Bld) 0.1 % [facility] Eosinophils (Bld) [#/Vol] 0.0 10*3/uL [facility] Eosinophils/100 WBC (Bld) 0.0 % [facility] Erythrocyte distribution width (RBC) [Ratio] 12.5 % 11.5 - 15.0 % [facility] Hematocrit (Bld) [Volume fraction] 39.2 % 35 - 47 % [facility] Hemoglobin (Bld) [Mass/Vol] 13.2 g/dL 11.7 - 15.5 g/dL [facility] Interpretation and review of laboratory results Abnormal [facility] Lymphocytes (Bld) [#/Vol] 0.9 10*3/uL Low [facility] Lymphocytes/100 WBC (Bld) 17.5 % [facility] MCH (RBC) [Entitic mass] 34.6 pg High 27 - 34 pg [facility] MCHC (RBC) [Mass/Vol] 33.6 g/dL 32 - 36 g/dL [facility] MCV (RBC) [Entitic vol] 103 fL High 80 - 100 fL [facility] Monocytes (Bld) [#/Vol] 0.1 10*3/uL [facility] Monocytes/100 WBC (Bld) 2.5 % [facility] Neutrophils (Bld) [#/Vol] 4.2 10*3/uL [facility] Neutrophils/100 WBC (Bld) 79.9 % [facility] Platelet mean volume (Bld) [Entitic vol] 8.6 fL 7 - 12 fL [facility] Platelets (Bld) [#/Vol] 176 10*3/uL [facility] RBC (Bld) [#/Vol] 3.80 10*6/uL [facility] WBC corrected for nucl RBC Auto (Bld) [#/Vol] 5.3 [facility] [place][note 2] System Calcium.ionized (Bld) [Mass/ Vol]on 10-13-2023 IONIZED CALCIUM 3.9 mg/dL Low 4.5-5.3 [facility] Comment on above: Performed By: #### P INR, 73313-7, 718-7, PLTCT, BMP, 26252-2 #### [facility] ([id number]) [address] [facility], [address] [place] [address] Interpretation and review of laboratory results Abnormal [facility] IONIZED CALCIUM 3.8 mg/dL Low 4.5-5.3 [facility] Comment on above: Performed By: #### 3 8230-9, 65938-9 #### [facility] ([id number]) [address] [place] [address] Cardiac echo study Procedure on 10-13-2023 Aortic root 2.90 cm [facility] AV mean gradient 2.00 mmHg [facility] AV peak gradient 3.68 mmHg [facility] AV peak jeannie 95.90 cm/s [facility] AV valve area 2.03 cm2 [facility] AV Velocity Ratio 0.65 [facility] AV VTI 18.60 cm [facility] E wave deceleration time 124.00 msec [facility] E/A ratio 1.81 [facility] FS 11 % 28 - 44 % [facility] Interventricular Septum Diastolic Thickness by 2D 9 cm [facility] IVS 0.90 cm 0.6 - 1.1 cm [facility] LA size 3.10 cm [facility] LA volume 35.80 cm3 [facility] LA Volume Index 20.8 mL/m2 [facility] Left Ventricle Mass [id number] g [facility] LV ESV A2C 39.00 mL [facility] LV ESV A4C 31.30 mL [facility] LV RWT 2D 44.44 [facility] LVIDd 4.50 cm [facility] LVIDs 4.00 cm [facility] LVOT diameter 2.00 cm [facility] LVOT peak jeannie 0.58 m/s [facility] LVOT peak VTI 12.00 cm [facility] LVOT stroke volume 37.70 ml [facility] MV Peak A Jeannie 49.50 cm/s [facility] MV Peak E Jeannie 89.70 cm/s [facility] MV pressure 1/2 time 36.00 ms [facility] MV TDI E' (medial) 10.60 cm/s [facility] MV valve area p 1/2 method 6.11 cm2 [facility] PW 1.00 cm 0.6 - 1.1 cm [facility] RA area 11.2 cm2 [facility] RV diastolic dimension (basal) 30.0 mm [facility] TAPSE 1.04 cm [facility] TDI 11.90 cm/s [facility] TR peak gradient 11.42 mmHg [facility] TR Peak Jeannie 1.7 m/s [facility] Valve area - Index 1.2 [facility] Left Ventricle: Syst olic function is [...] anteroseptal, apical septal and apical inferior. XCELERA [facility] Radiology Study observation (narrative) [facility] EKGon 10-13-2023 TRACEMASTERVUE [facility] Glucose Glucometer (BldC) [M ass/Vol]on 10-13-2023 Glucose [Mass/Vol] 173 mg/dL High 65-99 [facility] HEMOGLOBINon 10-13-2023 Hemoglobin (Bld) [Mass/Vol] 12.8 g/dL Normal 11.7-15.5 [facility] Comment on above: Performed By: #### P INR, 21551-9, 718-7, PLTCT, BMP, 92462-3 #### [facility] ([id number]) [address], [address] [place] [address] Hemoglobinon 10-13-2023 Hemoglobin (Bld) [Mass/Vol] 12.8 g/dL 11.7 - 15.5 g/dL [facility] Heparin unfractionated Chrom ogenic method Qn (PPP)on 10-13-2023 ANTI XA UFH 0.74 IU/mL High 0.30-0.70 [facility] Comment on above: Result Comment: Opti mal time for testing is 6 hrs post dosage This test is specific for monitoring patients on UFH, and is not recommended for use with other Anti-Xa medications. Performed By: #### P INR, 12302-5, 718-7, PLTCT, BMP, 04970-7 #### [facility] ([id number]) [address], [address] [place] [address] Interpretation and review of laboratory results Abnormal [facility] ANTI XA UFH 0.69 IU/mL Normal 0.30-0.70 [facility] Comment on above: Result Comment: Opti mal time for testing is 6 hrs post dosage This test is specific for monitoring patients on UFH, and is not recommended for use with other Anti-Xa medications. Performed By: #### P INR, 82001-8, 718-7, PLTCT, BMP, 85048-8 #### [facility] ([id number]) [address], [address] [place] [address] [facility] ANTI XA UFH 0.72 IU/mL High 0.30-0.70 [facility] Comment on above: Result Comment: Opti mal time for testing is 6 hrs post dosage This test is specific for monitoring patients on UFH, and is not recommended for use with other Anti-Xa medications. Performed By: #### P INR, 11662-3, 718-7, PLTCT, BMP, 45909-8 #### [facility] ([id number]) [address], [address] [place] [address] Interpretation and review of laboratory results Abnormal [facility] Ionized calciumon 10-13-2023 Calcium.ionized (Bld) [Mass/Vol] 3.9 mg/dL Low 4.5 - 5.3 mg/dL [facility] Calcium.ionized (Bld) [Mass/Vol] 3.8 mg/dL Low 4.5 - 5.3 mg/dL [facility] Ionized magnesiumon 10-13-19 Magnesium Ionized ISE (Bld) [Moles/Vol] 0.64 mmol/L 0.45 - 0.74 mmol/L [facility] Comment on above: NEW REFERENCE RANGE Magnesium Ionized ISE (Bld) [Moles/Vol] 0.24 mmol/L Critically low 0.45 - 0.74 mmol/L [facility] Comment on above: NEW REFERENCE RANGE MAGNESIUMon 10-13-2023 Magnesium [Mass/Vol] 1.1 mg/dL Low 1.8-2.6 [facility] Comment on above: Performed By: #### P INR, 84106-8, 718-7, PLTCT, BMP, 80658-3 #### [facility] ([id number]) [address] [facility] [facility], [address] [place] [address] Magnesiumon 10-13-2023 Magnesium [Mass/Vol] 1.1 mg/dL Low 1.8 - 2.6 mg/dL [facility] Magnesium Ionized ISE (Bld) [Moles/Vol]on 10-13-2023 Magnesium [Moles/Vol] 0.64 mmol/L Normal 0.45-0.74 [facility] Comment on above: Result Comment: NEW REFERENCE RANGE Performed By: #### P INR, 85685-7, 718-7, PLTCT, BMP, 77526-7 #### [facility] ([id number]) [address], [address] [place] [address] Magnesium [Moles/Vol] 0.24 mmol/L Critically low 0.45-0.74 [facility] Comment on above: Result Comment: NEW REFERENCE RANGE Performed By: #### 3 8230-9, 90026-6 #### [facility] ([id number]) [address] [facility], [address] [place] [address] Magnesium [Mass/Vol]on 10-12 Interpretation and review of laboratory results Abnormal [facility] Natriuretic peptide B [Mass/ Vol]on 10-13-2023 Natriuretic peptide B (Bld) [Mass/Vol] 1101 pg/mL High <100.0 [facility] Comment on above: Performed By: #### P INR, 54911-1, 718-7, PLTCT, BMP, 91393-6 #### [facility] ([id number]) [address] [facility], [address] [place] [address] Interpretation and review of laboratory results Abnormal [facility] Natriuretic peptide B (Bld) [Mass/Vol] 1101 pg/mL High NINF - 100.0 pg/mL [facility][note 2] System No Panel Informationon 10-12 [facility][note 2] System Interpretation and review of laboratory results Abnormal [facility] Interpretation and review of laboratory results Abnormal [facility] [place][note 2] System [facility] Interpretation and review of laboratory results Abnormal [facility] [place][note 2] System PLATELET COUNT AND MPVon Platelet mean volume (Bld) [Entitic vol] 8.8 fL Normal 7-12 [facility] Comment on above: Performed By: #### P INR, 57712-5, 718-7, PLTCT, BMP, 26921-3 #### [facility] ([id number]) [address], [address] [place] [address] Platelets (Bld) [#/Vol] 158 10*3/uL Normal 150-450 [facility] Comment on above: Performed By: #### P INR, 83623-6, 718-7, PLTCT, BMP, 84192-8 #### [facility] ([id number]) [address], [address] [place] [address] POTASSIUMon 10-13-2023 Potassium [Moles/Vol] 4.5 mmol/L Normal 3.5-5.0 [facility] Comment on above: Performed By: #### P INR, 48697-4, 718-7, PLTCT, BMP, 00558-3 #### [facility] ([id number]) [address], [facility] [address] [place] [address] Potassium [Moles/Vol] 3.1 mmol/L Low 3.5-5.0 [facility] Comment on above: Performed By: #### P INR, 69645-2, 718-7, PLTCT, BMP, 91380-0 #### [facility] ([id number]) [address], [address] [place] [address] PROTIME AND INRon 10-13-2023 INR Coag (PPP) [Relative time] 1.4 {INR} High 0.8-1.1 [facility] Comment on above: Performed By: #### P INR, 61307-1, 718-7, PLTCT, BMP, 17323-8 #### [facility] ([id number]) [address] [address] [place] [address] PT Coag (PPP) [Time] 16.6 s High 9.8-13.2 [facility] Comment on above: Performed By: #### P INR, 73212-2, 718-7, PLTCT, BMP, 67745-1 #### [facility] ([id number]) [address], [address] [place] [address] Platelet counton 10-13-2023 Platelet mean volume (Bld) [Entitic vol] 8.8 fL 7 - 12 fL [facility] Platelets (Bld) [#/Vol] 158 10*3/uL [facility] Potassiumon 10-13-2023 Potassium [Moles/Vol] 4.5 mmol/L 3.5 - 5.0 mmol/L [facility] Potassium [Moles/Vol] 3.1 mmol/L Low 3.5 - 5.0 mmol/L [facility] Potassium [Moles/Vol]on [facility] Interpretation and review of laboratory results Abnormal [facility] Protime & INRon 10-13-2023 INR Coag (PPP) [Relative time] 1.4 {INR} High [facility] PT Coag (PPP) [Time] 16.6 s High [facility] THYROID PROFILEon 10-13-2023 Free T4 [Mass/Vol] 1.15 ng/dL Normal 0.61-1.60 [facility] Comment on above: Performed By: #### P INR, 48544-6, 718-7, PLTCT, BMP, 34830-5 #### [facility] ([id number]) [address], [address] [place] [address] TSH 1.80 uIU/mL Normal 0.49-4.67 [facility] Comment on above: Performed By: #### P INR, 25234-8, 718-7, PLTCT, BMP, 99365-9 #### [facility] ([id number]) [address], [address] [place] [address] TROPONIN Ion 10-13-2023 Troponin I.cardiac [Mass/Vol] 9.76 ng/mL Critically high 0.00-0.04 [facility] Comment on above: Result Comment: Concentrations greater than or equal to 0.05 ng/ml are considered elevated. Elevations of Troponin may be due to causes other than myocardial ischemia. Recommend serial Troponin testing be performed. Performed By: #### P INR, 88021-2, 718-7, PLTCT, BMP, 46830-9 #### [facility] ([id number]) [address] [facility] [facility], [address] [place] [address] Troponin I.cardiac [Mass/Vol] 13.09 ng/mL Critically high 0.00-0.04 [facility] Comment on above: Result Comment: Concentrations greater than or equal to 0.05 ng/ml are considered elevated. Elevations of Troponin may be due to causes other than myocardial ischemia. Recommend serial Troponin testing be performed. Performed By: #### P INR, 55894-7, 718-7, PLTCT, BMP, 24089-4 #### [facility] ([id number]) [facility] [place] [address] Troponin I.cardiac [Mass/Vol] 13.88 ng/mL Critically high 0.00-0.04 [facility] Comment on above: Result Comment: Concentrations greater than or equal to 0.05 ng/ml are considered elevated. Elevations of Troponin may be due to causes other than myocardial ischemia. Recommend serial Troponin testing be performed. Performed By: #### P INR, 82668-8, 718-7, PLTCT, BMP, 01297-0 #### [facility] ([id number]) [address] [facility], [address] [place] [address] Thyroid profile includes TSH FT4on 10-13-2023 Free T4 [Mass/Vol] 1.15 ng/dL 0.61 - 1. 60 ng/dL [facility] TSH Qn 1.80 m[IU]/L [facility] Troponin Ion 10-13-2023 Troponin I.cardiac [Mass/Vol] 9.76 ng/mL Critically high 0.00 - 0.04 ng/mL [facility] Comment on above: Concentrations greater than or equal to 0.05 ng/ml are considered elevated. Elevations of Troponin may be due to causes other than myocardial ischemia. Recommend serial Troponin testing be performed. Troponin I.cardiac [Mass/Vol] 13.09 ng/mL Critically high 0.00 - 0.04 ng/mL [facility] Comment on above: Concentrations greater than or equal to 0.05 ng/ml are considered elevated. Elevations of Troponin may be due to causes other than myocardial ischemia. Recommend serial Troponin testing be performed. Troponin I.cardiac [Mass/Vol] 13.88 ng/mL Critically high 0.00 - 0.04 ng/mL [facility] Comment on above: Concentrations greater than or equal to 0.05 ng/ml are considered elevated. Elevations of Troponin may be due to causes other than myocardial ischemia. Recommend serial Troponin testing be performed. Troponin I.cardiac [Mass/Vol ]on 10-13-2023 Interpretation and review of laboratory results Abnormal [facility] Interpretation and review of laboratory results Abnormal [facility] aPTT Coag (PPP) [Time]on aPTT Coag (Bld) [Time] 48 s High 26-37 [facility] Comment on above: Performed By: #### P INR, 07076-4, 718-7, PLTCT, BMP, 07911-6 #### [facility] ([id number]) [address] [facility] [facility], [address] [place] [address] Glucose Glucometer (BldC) [M ass/Vol]on 10-12-2023 Glucose [Mass/Vol] 173 mg/dL High 65 - 99 mg/dL [facility] Interpretation and review of laboratory results Abnormal [facility] Carotid arteries - bilate ralon 10-06-2023 Previous: [...] previous report no significant changes were noted. [facility] Radiology Study observation (narrative) [facility] US Carotid arteries - bilate ralOrdered By: Sal Morris on 10-06-2023 [facility] [employer] Work Phone: Blood Urea Nitrogenon 2023 Urea nitrogen [Mass/Vol] 24 mg/dL Normal 02-04 [facility] Comment on above: Performed By: #### B UN, CREAT #### [facility] [address] Creatinineon 08-06-2023 Creatinine [Mass/Vol] 1.07 mg/dL Normal 0.60-1.20 [facility] Comment on above: Performed By: #### B UN, CREAT #### [facility] [address] Creatinine Clr Calc Pharmacy 43.30 Normal [facility] Comment on above: Result Comment: PERF ORMED BY: [place] [address] PATHOLOGIST MAINTENANCE DEPARTMENT TECHNICIAN LAURE BRANHAM M.D. Performed By: #### B UN, CREAT #### [address] GFR/1.73 sq M.predicted MDRD (S/P/Bld) [Vol rate/Area] 56.229 mL/min/{1.73_m2} Normal [facility] Comment on above: Performed By: #### B UN, CREAT #### [facility] [address] BNPon 10-15-2022 Natriuretic peptide B (Bld) [Mass/Vol] 732.0 pg/mL Normal <=900.0 [facility] Comment on above: Performed By: #### C CONNER, ELEC, BNP, BUN, TSH #### [facility] [address] [address] [address] Feliz Hilton BUNon 10-15-2022 Urea nitrogen [Mass/Vol] 31.0 mg/dL Critically high 7.0-18.0 [facility] Comment on above: Performed By: #### C CONNER, ELEC, BNP, BUN, TSH #### [facility] [address] [address] [address] Feliz Hilton CBC AUTO DIFFon 10-15-2022 BASO # 0.0 103/ul Normal 0.0-0.1 [facility] Comment on above: Performed By: #### C BC ####[facility] [address] [address]Dr[address] Yilan Hilton Basophils/100 WBC (Bld) 0.8 % Normal 0.2-2.0 [facility] Comment on above: Performed By: #### C BC ####[facility] [address] [place], [place] [address]Dr. Feliz Hilton EO # 0.1 103/ul Normal 0.0-0.7 [facility] Comment on above: Performed By: #### C BC ####[facility] [address] [place], [place] [address]Dr. Feliz Hilton Eosinophils/100 WBC (Bld) 2.3 % Normal 0.9-7.0 [facility] Comment on above: Performed By: #### C BC ####[facility] [address] [place], [place] [address]Dr. Feliz Hilton Erythrocyte distribution width (RBC) [Ratio] 19.8 % Critically high 11.0-15.0 [facility] Comment on above: Performed By: #### C BC ####[facility] [address] [place], [place] [address]Dr. Feliz Hilton Hematocrit (Bld) [Volume fraction] 36.1 % Normal 36.0-48.0 [facility] Comment on above: Performed By: #### C BC ####[facility] [address] [place], [place] [address]Dr. Feliz Hilton Hemoglobin (Bld) [Mass/Vol] 11.1 g/dL Critically low 12.0-16.0 [facility] Comment on above: Performed By: #### C BC ####[facility] [address] [place], [place] [address]Dr. Feliz Hilton IG # 0.01 10e3/ul Normal 0.00-0.03 [facility] Comment on above: Performed By: #### C BC ####[facility] [address] [place], [place] [address]Dr. Feliz Hilton IG % 0.2 % Normal 0.0-0.5 [facility] Comment on above: Performed By: #### C BC ####[facility] [address] [place], [place] [address]Dr. Feliz Hilton LYMPH # 2.1 103/ul Normal 1.2-3.8 [facility] Comment on above: Performed By: #### C BC ####[facility] [address] [address]Dr. Feliz Hilton Lymphocytes/100 WBC (Bld) 43.1 % Normal 20.5-60.0 [facility] Comment on above: Performed By: #### C BC ####[facility] [address] [address]Dr. Feliz Hilton MANUAL DIFF REQ NO Normal [facility] Comment on above: Performed By: #### C BC ####[facility] [address] [address]Dr. Feliz Hilton MCH (RBC) [Entitic mass] 28.7 pg Normal 26.7-34.0 [facility] Comment on above: Performed By: #### C BC ####[facility] [address] [address]Dr. Feliz Yobani MCHC (RBC) [Mass/Vol] 30.7 g/dL Normal 29.9-35.2 [facility] Comment on above: Performed By: #### C BC ####[facility] [address] [place], [place] [address]Dr. Feliz Hilton MCV (RBC) [Entitic vol] 93.3 fL Normal 81.0-99.0 [facility] Comment on above: Performed By: #### C BC ####[facility] [address] [address]Dr. Feliz Hilton MONO # 0.4 103/ul Normal 0.3-0.8 [facility] Comment on above: Performed By: #### C BC ####[facility] [address] [place], [place] [address]Dr. Feliz Hilton Monocytes/100 WBC (Bld) 9.0 % Normal 1.7-12.0 [facility] Comment on above: Performed By: #### C BC ####[facility] [address] [place], [place] [address]Dr. Feliz Hilton NEUT # 2.1 103/ul Normal 1.4-6.5 [facility] Comment on above: Performed By: #### C BC ####[facility] [address] [address]Dr. Feliz Hilton Neutrophils/100 WBC (Bld) 44.6 % Normal 43.0-75.0 [facility] Comment on above: Performed By: #### C BC ####[facility] [address] [address]Dr. Feliz Hilton Platelet mean volume (Bld) [Entitic vol] 9.5 fL Normal 9.5-13.5 [facility] Comment on above: Performed By: #### C BC ####[facility] [address] [address]Dr. Feliz Yobani PLT 273 103/ul Normal 150-450 [facility] Comment on above: Performed By: #### C BC ####[facility] [address] [address]Dr. Mónicaaureliano Yobani RBC 3.87 106/ul Critically low 4.20-5.40 [facility] Comment on above: Performed By: #### C BC ####[facility] [address] [address]Dr. Feliz Yobani WBC 4.8 103/ul Normal 4.0-11.0 [facility] Comment on above: Performed By: #### C BC ####[facility] [address] [address]DrJuan F Hilton CREATININEon 10-15-2022 Creatinine [Mass/Vol] 1.02 mg/dL Normal 0.55-1.02 [facility] Comment on above: Performed By: #### C CONNER, ELEC, BNP, BUN, TSH #### [facility] [address] [address] [address] Feliz Hilton EGFR-AF COLOMBIAN >60 Normal >=60 [facility] Comment on above: Performed By: #### C CONNER, ELEC, BNP, BUN, TSH #### [facility] [address] [address] [address] Feliz Hilton EGFR-NON AF COLOMBIAN 54 mL/min/1.73m2 Critically low >=60 [facility] Comment on above: Performed By: #### C CONNER, ELEC, BNP, BUN, TSH #### [facility] [address] [place] [address] Dr. Feliz Hilton ELECTROLYTESon 10-15-2022 Anion gap [Moles/Vol] 14.7 mmol/L Normal [facility] Comment on above: Performed By: #### C CONNER, ELEC, BNP, BUN, TSH #### [facility] [address] [address] [address] Fleiz Hilton Chloride [Moles/Vol] 109 mmol/L Critically high 98-107 [facility] Comment on above: Performed By: #### C CONNER, ELEC, BNP, BUN, TSH #### [facility] [address] [place] [address] Dr. Feliz Hilton CO2 [Moles/Vol] 20.6 mmol/L Critically low 21.0-32.0 [facility] Comment on above: Performed By: #### C CONNER, ELEC, BNP, BUN, TSH #### [facility] [address] [place] [address] Dr. Feliz Hilton Potassium [Moles/Vol] 5.3 mmol/L Critically high 3.5-5.1 [facility] Comment on above: Performed By: #### C CONNER, ELEC, BNP, BUN, TSH #### [facility] [address] [place] [address] Dr. Feliz Hilton Sodium [Moles/Vol] 139 mmol/L Normal 136-145 [facility] Comment on above: Performed By: #### C CONNER, ELEC, BNP, BUN, TSH #### [facility] [address] [place] [address] Dr. Feliz Hilton TSHon 10-15-2022 TSH 3.265 uIU/mL Normal 0.358-3.740 [facility] Comment on above: Performed By: #### C CONNER, ELEC, BNP, BUN, TSH #### [facility] [address] [address] [address] Feliz Hilton BNPon 07-16-2022 Natriuretic peptide B (Bld) [Mass/Vol] 1093.0 pg/mL Critically high <=900.0 [facility] Comment on above: Performed By: #### T SH, LIPID, ELEC, LIVER, CREA, BUN, BNP ####[facility] [address] [address]Dr. Feliz Hilton BUNon 07-16-2022 Urea nitrogen [Mass/Vol] 23.0 mg/dL Critically high 7.0-18.0 [facility] Comment on above: Performed By: #### T SH, LIPID, ELEC, LIVER, CREA, BUN, BNP ####[facility] [address] [address]Dr. Feliz Hilton CBC AUTO DIFFon 07-16-2022 BASO # 0.1 103/ul Normal 0.0-0.1 [facility] Comment on above: Performed By: #### C BC #### [facility] [address] [address] [address] Feliz Hilton Basophils/100 WBC (Bld) 1.3 % Normal 0.2-2.0 [facility] Comment on above: Performed By: #### C BC #### [facility] [address] [place] [address] Dr. Feliz Hilton EO # 0.3 103/ul Normal 0.0-0.7 [facility] Comment on above: Performed By: #### C BC #### [facility] [address] [place] [address] Dr. Feliz Hilton Eosinophils/100 WBC (Bld) 7.2 % Critically high 0.9-7.0 [facility] Comment on above: Performed By: #### C BC #### [facility] [address] [place] [address] Dr. Feliz Hilton Erythrocyte distribution width (RBC) [Ratio] 23.4 % Critically high 11.0-15.0 [facility] Comment on above: Performed By: #### C BC #### [facility] [address] [place] [address] Dr. Feliz Hilton Hematocrit (Bld) [Volume fraction] 30.8 % Critically low 36.0-48.0 [facility] Comment on above: Performed By: #### C BC #### [facility] [address] [place] [address] Dr. Feliz Hilton Hemoglobin (Bld) [Mass/Vol] 9.1 g/dL Critically low 12.0-16.0 [facility] Comment on above: Performed By: #### C BC #### [facility] [address] [place] [address] Dr. Feliz Hilton IG # 0.01 10e3/ul Normal 0.00-0.03 [facility] Comment on above: Performed By: #### C BC #### [facility] [address] [place] [address] Dr. Feliz Hilton IG % 0.3 % Normal 0.0-0.5 [facility] Comment on above: Performed By: #### C BC #### [facility] [address] [place] [address] Dr. Feliz Hilton LYMPH # 1.5 103/ul Normal 1.2-3.8 [facility] Comment on above: Performed By: #### C BC #### [facility] [address] [place] [address] Dr. Feliz Hilton Lymphocytes/100 WBC (Bld) 37.3 % Normal 20.5-60.0 [facility] Comment on above: Performed By: #### C BC #### [facility] [address] [place] [address] Dr. Feliz Hilton MANUAL DIFF REQ NO Normal [facility] Comment on above: Performed By: #### C BC #### [facility] [address] [place] [address] Dr. Feliz Hilton MCH (RBC) [Entitic mass] 23.9 pg Critically low 26.7-34.0 [facility] Comment on above: Performed By: #### C BC #### [facility] [address] [place] [address] Dr. Feliz Hilton MCHC (RBC) [Mass/Vol] 29.5 g/dL Critically low 29.9-35.2 [facility] Comment on above: Performed By: #### C BC #### [facility] [address] [place] [address] Dr. Feliz Hilton MCV (RBC) [Entitic vol] 81.1 fL Normal 81.0-99.0 [facility] Comment on above: Performed By: #### C BC #### [facility] [address] [place] [address] Dr. Feliz Hilton MONO # 0.4 103/ul Normal 0.3-0.8 [facility] Comment on above: Performed By: #### C BC #### [facility] [address] [place] [address] Dr. Feliz Hilton Monocytes/100 WBC (Bld) 10.3 % Normal 1.7-12.0 [facility] Comment on above: Performed By: #### C BC #### [facility] [address] [place] [address] Dr. Feliz Hilton NEUT # 1.7 103/ul Normal 1.4-6.5 [facility] Comment on above: Performed By: #### C BC #### [facility] [address] [place] [address] Dr. Feliz Hilton Neutrophils/100 WBC (Bld) 43.6 % Normal 43.0-75.0 [facility] Comment on above: Performed By: #### C BC #### [facility] [address] [place] [address] Dr. Feliz Hilton Platelet mean volume (Bld) [Entitic vol] 9.0 fL Critically low 9.5-13.5 [facility] Comment on above: Performed By: #### C BC #### [facility] [address] [place] [address] Dr. Feliz Hilton PLT 285 103/ul Normal 150-450 [facility] Comment on above: Performed By: #### C BC #### [facility] [address] [place] [address] Dr. Feliz Hilton RBC 3.80 106/ul Critically low 4.20-5.40 [facility] Comment on above: Performed By: #### C BC #### [facility] [address] [address] [address] Feliz Hilton WBC 3.9 103/ul Critically low 4.0-11.0 [facility] Comment on above: Performed By: #### C BC #### [facility] [address] [address] [address] Feliz Hilton CREATININEon 07-16-2022 Creatinine [Mass/Vol] 0.87 mg/dL Normal 0.55-1.02 [facility] Comment on above: Performed By: #### T SH, LIPID, ELEC, LIVER, CREA, BUN, BNP ####[facility] [address] [address]Dr. Feliz Hilton EGFR-AF COLOMBIAN >60 Normal >=60 [facility] Comment on above: Performed By: #### T SH, LIPID, ELEC, LIVER, CREA, BUN, BNP ####[facility] [address] [address]DrJuan F Hilton EGFR-NON AF COLOMBIAN >60 Normal >=60 [facility] Comment on above: Performed By: #### T SH, LIPID, ELEC, LIVER, CREA, BUN, BNP ####[facility] [address] [address]Dr. Feliz Hilton D-DIMERon 07-16-2022 D-DIMER 0.89 mg/L FEU Critically high <=0.59 [facility] Comment on above: Performed By: #### D DIM #### [facility] [address] [address] [address] Feliz Hilton D-DIMER COMMENTS SEE BELOW Normal [facility] Comment on above: Result Comment: Incr [...] hospitalization. Performed By: #### D DIM #### [facility] [address] [address] [address] Feliz Hilton ELECTROLYTESon 07-16-2022 Anion gap [Moles/Vol] 13.9 mmol/L Normal [facility] Comment on above: Performed By: #### T SH, LIPID, ELEC, LIVER, CREA, BUN, BNP ####[facility] [address] [address]Dr. Feliz Hilton Chloride [Moles/Vol] 111 mmol/L Critically high 98-107 [facility] Comment on above: Performed By: #### T SH, LIPID, ELEC, LIVER, CREA, BUN, BNP ####[facility] [address] [address]Dr. Feliz Hilton CO2 [Moles/Vol] 21.4 mmol/L Normal 21.0-32.0 [facility] Comment on above: Performed By: #### T SH, LIPID, ELEC, LIVER, CREA, BUN, BNP ####[facility] [address] [address]Dr. Feliz Hilton Potassium [Moles/Vol] 4.3 mmol/L Normal 3.5-5.1 [facility] Comment on above: Performed By: #### T SH, LIPID, ELEC, LIVER, CREA, BUN, BNP ####[facility] [address] [address]Dr. Feliz Hilton Sodium [Moles/Vol] 142 mmol/L Normal 136-145 [facility] Comment on above: Performed By: #### T SH, LIPID, ELEC, LIVER, CREA, BUN, BNP ####[facility] [address] [address]Dr. Feliz Hilton GLYCOHEMOGLOBIN A1Con 2022 ADA RECOMMENDATION SEE BELOW Normal [facility] Comment on above: Result Comment: ADA RECOMMENDED LIMIT 4.0 - 6.0 ADA THERAPEUTIC TARGET < 7.0 ACTION SUGGESTED > 7.0 Performed By: #### A 1C ####[facility] [address] [place], [place] [address]OqDr. Feliz Hilton Glucose [Mass/Vol] 120 mg/dL Normal [facility] Comment on above: Performed By: #### A 1C ####[facility] [address] [place], [place] [address]QjDr. Feliz Hilton HbA1c (Bld) [Mass fraction] 5.8 % Normal 4.5-6.2 [facility] Comment on above: Performed By: #### A 1C ####[facility] [address] [address]Dr. Feliz Hilton LIPID PROFILEon 07-16-2022 CHOL-HDL RATIO NORM SEE BELOW Normal [facility] Comment on above: Result Comment: 3.3 - 4.4 LOW RISK 4.4 - 7.1 AVERAGE RISK 7.1 - 11.0 MODERATE RISK >11.0 HIGH RISK Performed By: #### T SH, LIPID, ELEC, LIVER, CREA, BUN, BNP #### [facility] [address] [address] [address] Feliz Hilton Cholesterol [Mass/Vol] 107 mg/dL Normal <=200 [facility] Comment on above: Performed By: #### T SH, LIPID, ELEC, LIVER, CREA, BUN, BNP #### [facility] [address] [address] [address] Feliz Hilton Cholesterol in HDL [Mass/Vol] 52 mg/dL Normal 40-60 [facility] Comment on above: Performed By: #### T SH, LIPID, ELEC, LIVER, CREA, BUN, BNP #### [facility] [address] [address] [address] Feliz Hilton Cholesterol in LDL [Mass/Vol] 30.2 mg/dL Normal [facility] Comment on above: Performed By: #### T SH, LIPID, ELEC, LIVER, CREA, BUN, BNP #### [facility] [address] [address] [address] Feliz Hilton Cholesterol.total/ Cholesterol in HDL [Mass ratio] 2.1 {ratio} Normal [facility] Comment on above: Performed By: #### T SH, LIPID, ELEC, LIVER, CREA, BUN, BNP #### [facility] [address] [address] [address] Feliz Hilton HDL NORMAL > or = 60 mg/dl - LO W CARDIOVASCULAR RISK <40 mg/dl - HIGH CARDIOVASCULAR RISK Normal [facility] Comment on above: Performed By: #### T SH, LIPID, ELEC, LIVER, CREA, BUN, BNP #### [facility] [address] [place] [address] Dr. Feliz Hilton LDL CALC NORMAL SEE BELOW Normal [facility] Comment on above: Result Comment: <100 mg/dl OPTIMAL 100 - 129 mg/dl NEAR OR ABOVE OPTIMAL 130 - 159 mg/dl BORDERLINE HIGH 160 - 189 mg/dl HIGH >190 mg/dl VERY HIGH Performed By: #### T SH, LIPID, ELEC, LIVER, CREA, BUN, BNP #### [facility] [address] [place] [address] Dr. Feliz Hilton Triglyceride [Mass/Vol] 124 mg/dL Normal <=150 [facility] Comment on above: Performed By: #### T SH, LIPID, ELEC, LIVER, CREA, BUN, BNP #### [facility] [address] [place] [address] Dr. Feliz Hilton VLDL CALC 24.8 mg/dL Normal [facility] Comment on above: Performed By: #### T SH, LIPID, ELEC, LIVER, CREA, BUN, BNP #### [facility] [address] [place] [address] Dr. Feliz Hilton LIVER PROFILEon 07-16-2022 Albumin [Mass/Vol] 2.6 g/dL Critically low 3.4-5.0 Th [facility] Comment on above: Performed By: #### T SH, LIPID, ELEC, LIVER, CREA, BUN, BNP #### [facility] [address] [place] [address] Dr. Feliz Hilton Albumin/Globulin [Mass ratio] 0.8 {ratio} Normal [facility] Comment on above: Performed By: #### T SH, LIPID, ELEC, LIVER, CREA, BUN, BNP #### [facility] [address] [place] [address] Dr. Feliz Hilton ALP [Catalytic activity/Vol] 63 U/L Normal 46-116 [facility] Comment on above: Performed By: #### T SH, LIPID, ELEC, LIVER, CREA, BUN, BNP #### [facility] [address] [place] [address] Dr. Feliz Hilton ALT [Catalytic activity/Vol] 18 U/L Normal 14-59 [facility] Comment on above: Performed By: #### T SH, LIPID, ELEC, LIVER, CREA, BUN, BNP #### [facility] [address] [place] [address] Dr. Feliz Hitlon AST [Catalytic activity/Vol] 23 U/L Normal 15-37 [facility] Comment on above: Performed By: #### T SH, LIPID, ELEC, LIVER, CREA, BUN, BNP #### [facility] [address] [place] [address] Dr. Feliz Hilton BILI, CONJUGATED 0.1 mg/dL Normal 0.0-0.2 [facility] Comment on above: Performed By: #### T SH, LIPID, ELEC, LIVER, CREA, BUN, BNP #### [facility] [address] [place] [address] Dr. Feliz Hilton Bilirubin [Mass/Vol] 0.1 mg/dL Critically low 0.2-1.0 [facility] Comment on above: Performed By: #### T SH, LIPID, ELEC, LIVER, CREA, BUN, BNP #### [facility] [address] [place] [address] Dr. Feliz Hilton Globulin (S) [Mass/Vol] 3.1 g/dL Normal [facility] Comment on above: Performed By: #### T SH, LIPID, ELEC, LIVER, CREA, BUN, BNP #### [facility] [address] [place] [address] Dr. Feliz Hilton Protein [Mass/Vol] 5.7 g/dL Critically low 6.4-8.2 Th [facility] Comment on above: Performed By: #### T SH, LIPID, ELEC, LIVER, CREA, BUN, BNP #### [facility] [address] [place], [place] [address] Dr. Feliz Hilton SED RATE WESTERGRENon 2022 SED RATE 14 mm/hr Normal <=30 [facility] Comment on above: Performed By: #### S EDR ####[facility] [address] [address]Dr. Feliz Hilton TSHon 07-16-2022 TSH 5.167 uIU/mL Critically high 0.358-3.740 [facility] Comment on above: Performed By: #### T SH, LIPID, ELEC, LIVER, CREA, BUN, BNP ####[facility] [address] [id number]. Feliz Hilton VITAMIN D 25 OHon 07-16-2022 VIT D 25-OH 22.4 ng/mL Normal [facility] Comment on above: Performed By: #### V ITAD ####[facility] [address] [address]Dr. Feliz Hilton VIT D RANGES SEE BELOW Normal [facility] Comment on above: Result Comment: <20 ng/mL Vit D deficient 20 - <30 ng/mL Vit D insufficient 30 - 100 ng/mL Vit D sufficient >100 ng/mL Potential Toxicity Performed By: #### V ITAD ####[facility] [address] [address]Dr. Feliz Hilton MG MAMM SCREEN 3D RELL CADon 06-14-2022 MG MAMM SCREEN 3D RELL CAD Patient: ASHVIN RENE Exam Date: 06/14/2022 : 1955 Gender:F Ordering : DR TUSHAR SOLANO D.O. Admission #: [id number] Family : Order #: [id number] CLICK HERE TO VIEW EXAM RADIOLOGY REPORT [...] No Treatments None Family Cancers None LOCATION: [facility] BREAST COMPOSITION: Scattered areas fibroglandular [...] Post MD on 06/14/2022 at 14:19 Normal [facility] XR hand RT min 3V*on 022 XR hand RT min 3V* [facility] [employer] Other XR hand RT min 3V* [facility] [employer] Other XR hand RT min 3V* [address] [place] [address] [employer] Other XR hand RT min 3V* [place] [address] [employer] Other XR hand RT min 3V* XRay Report [employer] Other XR hand RT min 3V* Signed [employer] Other XR hand RT min 3V* Patient: Annette Rene MR#: [id number] [employer] Other XR hand RT min 3V* 20 [employer] Other XR hand RT min 3V* : 1955 Acct:[id number] [employer] Other XR hand RT min 3V* Age/Sex: 66 / F ADM Date: 05/20/22 [employer] Other XR hand RT min 3V* Loc: [facility] Room: Ty pe: REG CLI [employer] Other XR hand RT min 3V* Attending Dr: Virginia FRANK [employer] Other XR hand RT min 3V* Copies to: ZAC Michaud [employer] Other XR hand RT min 3V* Ordering Provider: ZAC Perez [employer] Other XR hand RT min 3V* Date of Service: 05/20/22 [employer] Other XR hand RT min 3V* [address]) XR/XR hand RT min 3V*: M79.641 [employer] Other XR hand RT min 3V* [address] film [employer] Other XR hand RT min 3V* COMPARISON:None [employer] Other XR hand RT min 3V* HISTORY:Right hand injury. [employer] Other XR hand RT min 3V* No fracture, disloca tion or focal soft tissue abnormality seen. Degenerative changes and [employer] Other XR hand RT min 3V* atherosclerosis. [employer] Other XR hand RT min 3V* X R/XR hand RT min 3V* [employer] Other XR hand RT min 3V* IMPRESSION:No acute findings [employer] Other XR hand RT min 3V* Impression dictated by: Rodrick Galvin M.D.05/20/2022 11:13 AM [employer] Other XR hand RT min 3V* Dictation Location: [place] [address] [employer] Other XR hand RT min 3V* Transcribed By: HERNAN 05/20/22 [address] [facility] [place] [employer] Other XR hand RT min 3V* Dictated By: Amadou Galvin DO 05/20/[address] [facility] [employer] Other XR hand RT min 3V* Signed By: [employer] Other XR hand RT min 3V* 05/20/22 111[address] [facility] [employer] Other Coding Summaryon 08-21-2021 Coding Summary [employer]Base 64 AlapocslLFv1aEy+PGhlYWQ+PE 2TIBGxU16fwTRqrV9EY6rLCG0V PONKDIUSKM9NVV2ejDQ6CKgcP1 VybiAv SkxobOUsHF03YSg2LFE6rTowHD ejjP5puDWwM8a3HxUzEY53nN96 UVybQUOrItR0QxBdjwkkfUPx O5qgFhUyjSCqZkt+PHRhYmxlIH htTEVvUOjeTAJvUrHaxLteWW2v Zx9tBGMtUUZnoLtkfDYoUrIg t5ysMVIoGCynMA9qbSpjP9FbxO V9RJFxt5n5Mr63iAW+PHRkIHN0 xUcwWIavc721BuJzm6jlCSL7 aKBcUYogYCP5M17we6B9RQHlNY VlFPR6fNL7xM0mhCncyynaQ3Ug iXYbEqF1HPZ5lGBmaW7txMmg wltmeW2bAvu+G11JYY8YMTJYNO 6GCym4Q2XyZewuqHZ+RI67UTNz CQ75iNNbmTLks0sjpBx6MiXa ZWCoRAE0tNbgKNxyr9UuYNSoO7 2poFIba2K3OGZyfMmocATfPmDu hYN4cR7lGGrpewuyy4pejuur Yosgj2eswz15pI52P19tMJanWJ EkPBC5PBXgLISfvLcvgj4orO9s Ii8+MEjhk8ryk4peqXi0YrCl DVEdrlHpiHqbBRN8n7PvYx26N4 ZmjWncc5LcUwd9ie30eKMkc0F5 mBA8MRygAIQgbK3bLQacWwG4 FTCeTaSezE63oZOwVTdhMc7wxL xcfDowMY3uQNYjqlonLKLgrA1h OEThfNZbhAczUT7zQPSziste a509HdScCXT2EENurTOzK3PykM 1iBqHbDGDjNONfQ3KffQCsHDoc H885YYluBzE6FQMbxnSjF4Ny JWEkvEexIyS8r8Z1Rl1Hk5Mgga rcBFR6SLmvMIVpUaV0EtOhFuW7 K0NrQdq9TYAotSfeES1rG1Em TEJxncxlaubacZI1XCCsWMMadN 97wRDoPZfdHn3ka0P9b307OZRb ENQybC20Eb8vjAzxUETswVSS uV2cbuhze7zgxoebLkQdGDCuLI b3XMu8LBNlsWjfYoIvIFJ1YiU2 VSK4jMQdeK4jxRwiiqdikB1u Oyc+Y59zgZ1uLFK2WEY5ezlbHZ NnvzCgFO70UB63Q2KdEweyhDOp bGU+EUOjpkYujZfpXV6pIrDm f9evk2LzOJtoW7TgGTZuKVclTn d5EKWgKFC2lMN9fQ6cABWsMKuv y1E6wKM2M8KpnpWtaz8kx8hx IJBzDGroW52siBGem3F2TIIchA U5XPEsaJpyHrXldL49Rjy+PGNv eBdbn7SnMmbts8nqd6mdxKh9 WwVeIJKubiSfoJngLVG8b3NgYo 16L65sFWsvRQBhZABxZORlPAIe nDlles7xbI9qSg3+PGNvbCB3 dJI3mM4aXTMjDbT5MTggU940Lk YfqPRlQdjph0dbg4xceZy6WqIq FIGsrqTfiTvpWQR5y9LxPf02 B32yWSpeYOMjXOYkTTUhQVDdtI wbco1dxG4eOg1+SB3bb9tnbi98 jY59eBT+OFMsITN0hJamPBky YMLkjR4vXSroIhL7GVAdWeJhrU 54pKEaUMhwFo3fuCrwnWrbBH8v ERLwyewmp790GkFbv7plOYXj hUDyETgdKKT9C27ry7J3GEYwHU WtXAG0jVW1sJ9ltLwmvmlfiQZr oMwfdqMpeVcuJQnhVIgvZ859 IHRvcDsnPlBhdGllbnQgTmFtZT d2I1RlKlo1OSVyfZepKR0qsOFa IVdlQs1teRagkNnoID5lNOVc hggdt662SwDzd3nsRAOygDCaSS hhOJH8Q76px0C6GTHvWAKkVSU5 zHY0eL0oqPfnzaobaWZokFuf pmSyhQpdUPlwXQmhK499AINcdI mmLqMcrrXbHKWdzRI9QI47OX42 pETjl7G1mDP2E5YbVHBhqrjz taksnNI3YREnZCSbnD27In0tyU emMq3gILIhEMU4CDKyxTNhG6Er pO4oCeYsZZJtDJRuD2KyaLGf AXvsO044OOijEjL6YHRrpgUpC6 TaMMYhvSjiEaV4z9Y9Xh7IA9C4 PZ78TJ40dKVtv9O4gJY6N9Do NOPmlalzbxmfuDQ6JPJsSVBdcX 71Az2vsSnlEp8uUXBrKVN8MJLk qYMlR9NgkE2wVmEkOAYxZARm I9DjxVJgLGcbS853EStsLnO7IZ OessVdM2MeSLPccGybVvV4r1K2 Co4TACn0RW95KU94eDPiy3Y3 xRC2M6RbVEEyabyjxhdcyJP8KA ApEFRcbH48Ro2rmYneJl0aGJCh DKX7UMZaeOIoF0RlaD5mWmAt GARvGFBqV7SukEQaJDkhM964JR mdGeS3BZYuidBqM3GxISSnqUap VdH8x7Y3Iw8CQPFpJF86KBF9 eDD3VV23JY52Q7GxOenmlAFscJ U+PHRhYmxlIHdpZHRoPScxMDAl OxXarDskWK2iWf7oEDQrCBVy nItzzLLoNqRvn0xyEDXwPJcjBI 7zzSptC2JgxTO7RYMry3d2Kt14 Y84zU5ZftUR+OCDruJI2iXK5 pU3iFhHtPhH7RNepG928IuZeiO DoKeftc9aqp0nosPr4YcR9MBSn ozYnxJptBOM0x1AfWp52U43x IHdpZHRoPSIxNSUiIHZhbGlnbj 3vcV0hUc5+PXElfSF3hRW1jR7r MhVsUqL5VPuxY198LaAdnKUk Bwrgu6hpn3qyuPi4MaLpAOCorm WzqHdhLZD4z2GzJf98X4ObjZjr p9SnSll7vk01gANve0H2kUY9 V9IoKPHwggzwpTHheRsyEW7hNH YzijfgNSKjnC1dEGKdR8z0CnAs GwQ4TLbsF5YmfaW5KNSkyGAt JXodNJJ3R21eh9J0LMVbZEXkAD J2uDJ3sM3gtFacobwotOLotSrg ziUzbIypPZhtUMuxT873ZBPo eVuzZMSvcH2hAVOlqTVhzYrtIH 2cUJDlkqmqDfsZQj1HDwukH8OP FY2zUJvpqUN+HOBdEOD0mGzi CLcgUIDpmZ7uODMyC7t8CwWmLx W5TVkjT4EcWZLoolwoCk98hO6d ZhXfTsZ8DZfyF6GyzzG9IMBh mJMnZHacPVD7C95to9J5GWXiCS RiNUY6iDJ2iI5maBwrlglejTIf pSdfczJnmHnqOTycUCirS376 ZMIoiHcySnF6KvW5EgE3CVM3A5 IhYtv9LLOzaLkaFF9qfLTpWMpf Cu2rtKjfbBsuTI3aSBVmmshq FCAgrU1rBGZydXRvvBbqLM6xXL Kpwygau966EtIvPEJ1LGDxyJNb Q6XppM0eCbVgGDKwLJDoA3Uu cQFcQFecL259KYieUvJ4BDSppg KaU9PwCCShhTyvCrU1m7S9Qd26 NyBZZWFyczwvdGQ+PHRkIHN0 mPddYAubNBNhcV5jKHHgQ7b8Gh WkMkF2VJdkG2DiBRMdxqpyEn71 qD0nJgVvImB2MQuvE9JipcA2 TGSfyQLzIVnuYGN3B44in0X6IF BrMCSdKSN6kIJ2dN2qqZohedqt bGVmdDsgdmVydGljYWwtYWxp T820OVEvwFtiZoWIBAEORDnwgI Q+CAEfPJX4kOusVIgcTVAqnQ9w DBVmZ7b9WeEkRsQ5QYerS3Ln OYMpkklrCc95qH9nZkUsLkI1ZC mkS0SrmhW5HQAvvZLrAQtzAET8 A42qn8B4FUKhZLWxAFU8pFC6 cU8mwKpjuwzbtFYjgTwyicMdpN qtOWxuQMqbD612DXOpdFqlSl8h q7QtzjU1qY9zQE48ZG88R2Ll PjwvdGFibGU+PHRhYmxlIHdpZH XdWIgtSKEtOxOdlTmoDS6rZv6y KOVfQRSwfAugzQUwYbAkh4tb EBVhLQjdXN9ghGooV7CkePJ2DF Smg2b8Zn55L51qL8MhrQW+PGNv jHU8eNU4bN7tRaEwXcR0MTww O477ZsRscMQeYzxmn6fls6sueZ e2UbZrEBYtoeExaKmeGYZ7y2Zw Dm86G97sEFijIHNiMMHbTNEa FMGnvPquul1saM2mQr1+PGNvbC Y4nFX4rT9pNwZjMsX4EOzdK814 VxKrkZWrXxquJ92qX3RpmWA+ NMZeYjk3DGBoxTykFR7seLPiZC vxZc8zBDY1DuKiYqKhKBktW0Vg URJrvmohyryneAS4LXQhSBDm nN00Vd6knEroKz4nWLVgTDE0DG YbjVWjO2NriI7iYnXqGOIsDZSu W2GwgOIfXKejI628AFctSfT2 IDSqhfBdF6ZcOAVsbElmGwS2o7 G9Xv3ZkHcrxVQfYB6sYfGpWHr9 M3WnXur7VMCayWheRJ2ftTGu WAmkBm6syJdytQwfWD4xNMBlck ayb632QhTtp3urAPBtkKDgJFvo GTI3W16gh1B4RVZxVIUvYBG1 tBH7tC2miHrxhnfizJLezNkakn FfyPkxDItyYNurB075CCOhcBfi PkRPUbt0J6GxIrf4LWIzaEgk UR9frIWrUOeoAc6ujHbtjRmxUS 0rPXOtdgltl131NwIwj6rjTWHc jYBfHAhuYRK1T86kx2W5UJSm SQZiHHZ4bAZ9oT3ofPocuyrsaB JupRytikXljKvcSTfsZWakG662 UWRucRmbAz7ULwj6D9CvZva0 EEXgdKypIJ9yuSCyIRuhPl9zvB dwoGeuOP2hLPSfmcaye874QwOo d6qmUAWyxGOdBUceMVA9H13p y8E6BEBnCZGaSAF4xWJ3jW6tvU lnbjogbGVmdDsgdmVydGljYWwt SBvpM855RHUdqUwlWsMulFQx OjwvdGQ+CV46gf09J2WfKpwxHg l5ZSAtNIQ2hEE0jK0wESAdNYww u7U4uPH4O6XtxzPiwh3vw2rd YXB (more content not included)... [facility] Coding Summaryon 08-20-2021 Coding Summary HTMLBase 64 HyivfduwOWd1kYq+PGhlYWQ+PE 7EZTNfO98exFXmeG8SE9bIFO1I KYRPYBYSSX6SOY4ehKY8QOseF4 VybiAv MxmxcPMeHP97LSb0LFL6uCzvWW ghuG3ymBXrQ4q3BmVfIA31dR09 YUqcEHUbCyL3DjOsfmcvkTJc U9fvJyWgvQIaClu+PHRhYmxlIH kaDNDtMDmqFSYkBmDneKpzAE6p Eb8uTOCcIQCbkSkczDLkRmSo i8nlABGsSIebNA9qmBkgP6KpiU L3VKMai6y0Rt49zLB+PHRkIHN0 wTvfXBwhd673LeGec3vtFZI2 mWSgUGygFSE3N97tl7B7VFWjRK SmZLQ1aAJ5wB3kgEsbsalcM9Oh gMEmXmV8XBP3yULzdM8oqOza fojrfS2qGoh+V49OMM5TYOWAFY 2DSxk2A2YaXyijaAF+CJ19AFMi UZ08wJPwiAYse6kkwTs6DvNb IGDkZSL9eWqtIIvvr4BiTHPsM4 9juONkv4D1QIJydWhopBLaNgOm tXN4dN1jYHcugihgm8tynfyq Vbbmw8ctzv21iN70W89ePGomVJ JaGVH1RHSrSNDkkDdplp1gtI5y Ii8+JKqtq3mgf0zzgIx6VrRf BJSjabKeqAmeGLA2l9JlSe13D9 CcrJbdx3EtPax0ap87iXJgp6T1 fWM2FGyoHAMhhJ3tWUwlRcF8 MLCpJjEoxR68mELuVJpvDn4wwM mvrYrmLE1hLUFojgdjPQEevT7r UOVsjJBfhEfgZY0dUXUtvqqt a318GaDfFJU6KQYuyGNqF2OlzJ 2yCkAfKNDbINStP3CoePNsPZgt U436OIscFfR4BCDwaiXmC7Qg JABalEpkQxZ9j4I0Wv0Rx4Muxx jiJJC6QOnhAEFvYkL8JeCvKuL7 E8XrXxe2BINuuYgmHI7xX3Li ITRikxakzqvijRP0KXVxUMLjuR 95jKXiUYuzHc8pp3N2v095HRSz MNTyhG25Vt0ncDlwAKBsqZMY iQ4psqexa0vgqvjtLlPqMZShEX z9MYg8YJJtvDddSjMuVAS7LgP0 NBF0vQWkcP0elTvbcdqwpG3b Oyc+S57upM3sWLA3VPY9xusuMN EjtnYfSU91OZ61L2AuEfutrKEh bGU+XKFigxTquZvwVY1kEqOa f4sfm5UnRPozM8JuXJTwHPsoAe h7HYWtBSU5sVX3pV2iALSmJLay a2U6iOO4E6XfslCsvo7su1wi UDUyEPucD41dpMYos6W3DBBolZ R2MXZgyFowSfAwcU74Ppj+PGNv hEhcq2KoSpcst0meb1gxtQc1 UxEqDPOwcxMzmRntUFJ1m5MdXq 81W45qFIepWZAvZHSbQBYhQTCm mHgkci5ucU1dHh0+PGNvbCB3 vKP8eL1zTOZvDiG5HZrcJ880Fp NfuWTrSnbdk6mrh8panOg1BkXf KOTuodWhcAekQEO0u4MuZr55 A98jVYamPMWdRXJbNZItHXWwsR hssc2nvQ2iTy4+YL0du3mmkl37 lT38qOG+EJDtISE5fHspYLth POUltL9oIQlcXjR5FRKnTdDjbD 85dZQbOBdbNl0evVzawJhjIR2v KXOnxppgk777DhCeq6ukMWWy vOKqBStfOEO1Y08qk3Q1QEUgBC WvBKD9uIS0aL1quKcqmhtstXTe bSecuaMsbWrfTPhnJWneH110 IHRvcDsnPlBhdGllbnQgTmFtZT e7W7XzPae8OFNssSupOG3alVSe MXuqHv9doCdzdPdtZL2vCCVh cycnw596GpMpu3euULPlePHvXU spLBH2R02wy5D7LLFqBQIfKYO8 hYU8jN2frSdsbkzfeYEuuUra ewSyzWgjYJwqTBhiQ164WIVbyM akNpZoehBlXAOltXO1NJ80CU53 jAXcz9Q0eOH3G1PnGPKfeijp ugqymCF3WOBtZOMpzB89Pm8lnV ypMm5aKKJtTBF9WDXrjPMhQ3Bi uM6kIaKlOMQnNCJdV1PkoUUt MRddE433EFqqVtI3EJMcurJmU8 ErFBZneEexRoC2o8Y2Gh1DS3H3 KX43HT59zWYgz0B7oKU1V5Mj DMFjrjqfgwooqUE9YDSfSKTihG 76Zj5fkIbgEz2lYNTbQBZ4EWAt fKOaV9PnhD8bDsByXLSpFMPm F6KptJKqPRxmV619MAfjEcJ7KL WmigWmN6BgMYSppEbcDoV8b0Y6 Qx3QZSj7IT86VV45sHJgn9O6 cVK7D1LnAYRnvgrknnnntSM4IT IxIWOzdX76Ae3vgLrgUz6cFLKt LZJ9YGBkvTKqS9UnaX0tYlAm ROGwYOQwK2XywWBlPIdkV467JF kyFmS7SCOqhhKnW4PrXRNehBpz UmQ3n0X5Ij1KULCmDR40KEA5 fKU5MU46BA23V1XkDcgnuXQkeX U+PHRhYmxlIHdpZHRoPScxMDAl IxJhdGsgCW8kVl2lTNRxMECh bVtcqQMfYxHbb4ryDSKsKKgjBK 8rnHuoC2HpeGO1HMUnv4u9Bs21 Q29vP0YbkWN+SNPdhAO0nGL8 tB8wHpUfFtK9VFsgW141WqQfwS HfSdlih7jvk1ouwXu6BeE8GRDe bhOyfKroXAA7c2ZxNv75Z28o IHdpZHRoPSIxNSUiIHZhbGlnbj 3hmO0nMz3+QUXfjMQ1wBH0wA1t LyEnZhA3SLzkE138OuUelAHy Vaobh8ote3lokTy9YnSnFHQpla QthPweZGE2x4RvLe30S6EshLgo r8CoGga5vg63rQQsg0A4jUR4 C2OuBLBuumxvoXPybKmoKD9lJN AwlxueXDSpfT1dHJBrU1q9BcJa ByW7VFzjH7FqvzO8SSNujNQd IXulZPN6O67bq3J9SBZrGQBeNF Q6fQB2oI9nbDleuzgvvHGkmVxn owTosWydWWnfXJroO116FJKs xNynNXSitT0uMGXyiOSmnAzrQV 0rULDofoasMxzTTn9ZZmlqN3OH KS7iSHshkQO+XKOcSRY9nTjz OVqeHHZhbX5hKQOhW0d2JxHrZy S7JAneD8EhSFJuunzqUq24wR2t JhHeLnC6KHrvC0GiumO5QWJj dYRxDZbfVSU6T06gu3O2RVJvPP ZkKHF8yUY4tG3ujIhxtdvhaVNe wVbczlFprGqhEWsdTIwsX634 JWNzjXmcXdM6AaZ2RdS4PSS6U0 PxDxf9JZWuhFttFB8iuZMdMJjc Qv7xeFikdRpvND2rRVSiyqkc DIYqmV2gYNUleGQlgQozWD8yBC Lhkswop327JgMrFYC6BZHhfNKv D4PxjI8gMuLfNVInRENzX5Cd yAOpKFhjI461PVafQnL9GBKndj IqN9LsYOVulXniXcQ6v2D0Xb80 NyBZZWFyczwvdGQ+PHRkIHN0 fFjgQWdpQXBuyQ1iPFRjD6i6Vd BuZqC1FEabA3OoYQUuvgxhLg73 dE9gAtBxLyO3MAgxV3KfayH5 DGAuaVGkGTucCQE8O41hh5K5KW GkDODcMKU5wMH1dF2duOomxgzf bGVmdDsgdmVydGljYWwtYWxp E586HJIlsZchQjVNQBQRVJyvmJ Q+IGWxUNN6aVmhEPqdUHAihP3x JPCcN8f9GbUlKdG7UYbnC9Nj LQWlezxkKr44kY4iAiBrHtS7VA aoV5NqvoY0DDPdoGVgBPilCWQ9 Q00yb8M7HKCpACDrIBP7jJO8 eM2dyKnnoenlbWXjeQfkosTplF pzKMknGQijF379PPCndRjiDnik iGR0oLDkuUqwpKM+AE22gf55 I4AtYapdQpe4NLSjJZE9jGD4kJ 3iRSCkZIkim8V3fHH4X9OpwnZj eq7ob0spHJNgWBpfS19rsUFh j5A8VEIfrNT8FCPjbJszWcHqfO 93Oyc+FIAdfBzwe1QtQqwui3oa x6cikXz3HhXcDVVykeZegKvf XPZ4h9EoMa96Z22fESqeBGGxEA VvQPXzGKNisYckke8ixP3hHn0+ ARZpnCZ5cHO1zL8cUjEeWxK7 ZCnlL941EqMsfEPzQkpfl5hnl5 jflQu1ZoAfVBTkmjYvlIftVNT9 r6AbZb00G5DyxVlzq5YxCrx4 gh28rBBof9E6xHK3F7PzUWJnpv imiAXcmJqrCH6wGMZaedpjIVHb dQ6zGTEbQ9u3RpXuBpC7YXhe Z0LbbiU4EAMgxOVgMDUobXOUpD 1gbizfw4lwkgvcSlPzTLCuBYe0 EXd9XPOvtZpmCrNrUZI6YoD5 UTB1uLMyoN7dfDzcpjzwvA3vTh c+EZc4b5jrtYLxPW3apRI2IL65 MT63vAGuy0Y9zGO4N2VtIPPz wajbkwereGU6GQCrRIVoeM03Kh 4arXhkFi9cBQTqAYR9KAGwdYDj P9MjmU7rZbLwKIRhDYWbP6Qe aOIiZXbzA623KLabLzR5CJKvmq VfD7MkYBUwsKxoYlE5b7T7Hs8L WZ91MG63MX70wNKce6Y4cAJ3 T0AhPYRahoeryomzaZR4CBNeYN OkzC46Oh9ydZgfMg1pXKQtFDH2 GTSvsYAcT4MgsX9xUeBqZUXb CTWnJ5NxsMTyODceE962RZbuQz T3EGUnmkXrV4ZzWWFigDiuOzK3 l0Q4Se2QWb28TY04AL74zDAa u3P7tMQ9Y2FwRDWposnnvfcuhS E1PNCdIOAriL50Vh0qxZbkFh7f CRHyQYR4DUGotBWuD6RzyI8o LrEpQZLcRXGnL0EkbIWrLOjtT2 91VKugRtW1ZKGiicWgR1CsHXRr xWyrRaU1p5X1Bc0DKNhrpfm2 S9MdBsygeQL+RN41NINvLS50jB AveFJyi3vcjMm4UuQlGPSyWAW2 sFubPPmep6ZeTIEfA39muHQn c2U (more content not included)... [facility] Outside Recordson 08-17-2021 Outside Records [id number][facility] 08-15-2021 Consent Forms [id number]#1.00[facility] Pathology Sendout Teston Pathology Send Out. See Report [facility] Comment on above: Order Comment: PROCE DURE COLONOSCOPYSPECIMEN CECAL POLYP Performed By: #### 1 [id number], 9774044, [id number], [id number] #### [facility] (DEFAULT) [address] [place] [address] Provider Orderson 08-15-2021 Provider Orders [id number]#1.00[facility] Telemetry Stripson Telemetry Strips [id number]#1.[facility] Transfer Noteon 08-15-2021 Transfer Note [id number]#1.00[facility] .Auto Diff 1on 08-14-2021 Auto [place] % 7 % Normal 1-[address] [facility] Comment on above: Performed By: #### 1 [id number], 4010093, 43411778, 6643065 #### [facility] (DEFAULT) [address] [place] [address] 08539 Baso Abs# 0.0 x10 Normal 0.0-0.[address] [facility] Comment on above: Performed By: #### 1 [id number], 3166693, 13292434, 4201094 #### [facility] (DEFAULT) [address] [place] [address] 88969 Basophils/100 WBC (Bld) 1.0 % Normal 0.2-2.[address] [facility] Comment on above: Performed By: #### 1 [id number], 3290306, 31198532, 2034622 #### [facility] (DEFAULT) [address] [place] [address] 85582 Eos Abs# 0.1 x10 Normal 0.0-0.[address] [facility] Comment on above: Performed By: #### 1 [id number], 1497286, 91066328, 4862174 #### [facility] (DEFAULT) [address] [place] [address] 36793 Eosinophils/100 WBC (Bld) 2.9 % Normal 0.9-4.[address] [facility] Comment on above: Performed By: #### 1 [id number], 3501464, 89345833, 6358881 #### [facility] (DEFAULT) [address] [place] [address] 80359 Lymph Abs# 1.5 x10 Normal 1.3-2.[address] [facility] Comment on above: Performed By: #### 1 [id number], 9237741, 31377426, 3244064 #### [facility] (DEFAULT) [address] [place] [address] Lymphocytes/100 WBC (Bld) 31 % Normal 14-[address] [facility] Comment on above: Performed By: #### 1 [id number], 5755003, 50156924, 1116851 #### [facility] (DEFAULT) [address] [place] [address] [place] Abs# 0.4 x10 Normal 0.0-0.[address] [facility] Comment on above: Performed By: #### 1 [id number], 2111046, 94816764, 7729453 #### [facility] (DEFAULT) [address] [place] [address] Neut Abs# 2.8 x10 Normal 1.5-9.[address] [facility] Comment on above: Performed By: #### 1 [id number], 1811980, 70133713, 0469933 #### [facility] (DEFAULT) [address] [place] [address] Neutrophils/100 WBC (Bld) 58 % Normal 44-[address] [facility] Comment on above: Performed By: #### 1 [id number], 3778777, 78431076, 8643705 #### [facility] (DEFAULT) [address] [place] [address] C. diff DNAon 08-14-2021 C. diff DNA Negative Normal Negative [facility] Comment on above: Performed By: #### 4 [id number] ####[facility] (DEFAULT)[address] [place] [address] Internal QC OK? Pass Normal [facility] Comment on above: Performed By: #### 4 [id number] ####[facility] (DEFAULT)[address] [place] [address] CBC w/ Auto Diffon Erythrocyte distribution width (RBC) [Ratio] 17.9 % High 11.5-15.[address] [facility] Comment on above: Performed By: #### 1 [id number], 6555945, 13833392, 4591767 #### [facility] (DEFAULT) [address] [place] [address] 29352 Hematocrit (Bld) [Volume fraction] 27.8 % Low 33.7-40.[address] [facility] Comment on above: Performed By: #### 1 [id number], 1691377, 00574866, 4297651 #### [facility] (DEFAULT) [address] [place] [address] 80780 Hemoglobin (Bld) [Mass/Vol] 8.1 g/dL Low 11.3-15.[address] [facility] Comment on above: Performed By: #### 1 [id number], 9768913, 92493041, 5186800 #### [facility] (DEFAULT) [address] [place] [address] Instr WBC 4.9 x10 Invalid Interpretation Code [facility] Comment on above: Performed By: #### 1 [id number], 6698598, 40982811, 9880249 #### [facility] (DEFAULT) [address] [place] [address] 58673 Man Diff? Auto Normal [facility] Comment on above: Performed By: #### 1 [id number], 2538440, 06316151, 7975444 #### [facility] (DEFAULT) [address] [place] [address] 57631 MCH (RBC) [Entitic mass] 27 pg Normal 24-[address] [facility] Comment on above: Performed By: #### 1 [id number], 1338958, 67825286, 7184728 #### [facility] (DEFAULT) [address] [place] [address] 34835 MCHC (RBC) [Mass/Vol] 29 g/dL Normal 26-[address] [facility] Comment on above: Performed By: #### 1 [id number], 7969043, 26686459, 2927278 #### [facility] (DEFAULT) [address] [place] [address] 08274 MCV (RBC) [Entitic vol] 94 fL Normal 81-[address] [facility] Comment on above: Performed By: #### 1 [id number], 7977336, 09622362, 3870434 #### [facility] (DEFAULT) [address] [place] [address] 78324 Platelet 280 x10 Normal 138-[address] [facility] Comment on above: Performed By: #### 1 [id number], 3166093, 49533230, 0256064 #### [facility] (DEFAULT) [address] [place] [address] 78003 Platelet mean volume (Bld) [Entitic vol] 9.3 fL Normal 6.3-10.[address] [facility] Comment on above: Performed By: #### 1 [id number], 5113369, 08956382, 6236773 #### [facility] (DEFAULT) [address] [place] [address] RBC 2.96 x10 Low 3.70-5.[address] [facility] Comment on above: Performed By: #### 1 [id number], 8484189, 49478753, 3506816 #### [facility] (DEFAULT) [address] [place] [address] WBC 4.9 x10 Normal 3.5-10.[address] [facility] Comment on above: Performed By: #### 1 [id number], 2556492, 54356383, 0437681 #### [facility] (DEFAULT) [address] [place] [address] 39024 CMP Standardon 08-14-2021 eGFR Non AA >60 Invalid Interpretation Code [facility] Comment on above: Performed By: #### 1 [id number], 7208004, 38406478, 0148258 #### [facility] (DEFAULT) [address] [place] [address] eGFR AA >60 Invalid Interpretation Code [facility] Comment on above: Result Comment: Commissioning Manager juanito Kidney disease could be indicated at eGFRs of less than 60 ml/min/1.73m2. Kidney Failure is indicated at less than 15 ml/min/1.73m2 Performed By: #### 1 [id number], 5506455, 13909127, 3123615 #### [facility] (DEFAULT) [address] [place] [address] 49565 Albumin [Mass/Vol] 3.0 g/dL Low 3.5-5.0 [facility] Comment on above: Performed By: #### 1 [id number], 8579537, 45920609, 5934242 #### [facility] (DEFAULT) [address] [place] [address] Albumin/Globulin [Mass ratio] 1.8 {ratio} Normal 1.4-2.[address] [facility] Comment on above: Performed By: #### 1 [id number], 5165612, 31147290, 7845349 #### [facility] (DEFAULT) [address] [place] [address] Alk Phos 35 IU/L Normal 32-[address] [facility] Comment on above: Performed By: #### 1 [id number], 7751023, 46616314, 0896103 #### [facility] (DEFAULT) [address] [place] [address] ALT [Catalytic activity/Vol] 16.0 U/L Normal 14.0-54.[address] [facility] Comment on above: Performed By: #### 1 [id number], 8533404, 97831315, 0338520 #### [facility] (DEFAULT) [address] [place] [address] Anion gap [Moles/Vol] 12.0 mmol/L Normal 5.0-19.[address] [facility] Comment on above: Performed By: #### 1 [id number], 4851543, 54332971, 6797627 #### [facility] (DEFAULT) [address] [place] [address] AST [Catalytic activity/Vol] 24 U/L Normal 15-[address] [facility] Comment on above: Performed By: #### 1 [id number], 2334314, 01548865, 3985365 #### [facility] (DEFAULT) [address] [place] [address] Bili Total 0.5 mg/dL Normal 0.3-1.[address] [facility] Comment on above: Performed By: #### 1 [id number], 9772643, 11572995, 7819868 #### [facility] (DEFAULT) [address] [place] [address] 94485 Calcium [Mass/Vol] 7.4 mg/dL Low 8.9-10.3 [facility] Comment on above: Performed By: #### 1 [id number], 3289216, 44541021, 8007305 #### [facility] (DEFAULT) [address] [place] [address] 97641 Chloride [Moles/Vol] 108 mmol/L Normal 101-[address] [facility] Comment on above: Performed By: #### 1 [id number], 6766518, 24795551, 4645048 #### [facility] (DEFAULT) [address] [place] [address] 36362 CO2 [Moles/Vol] 26 mmol/L Normal 21-[address] [facility] Comment on above: Performed By: #### 1 [id number], 0583720, 59178664, 1811970 #### [facility] (DEFAULT) [address] [place] [address] 19386 Creatinine [Mass/Vol] 0.68 mg/dL Normal 0.60-1.[address] [facility] Comment on above: Performed By: #### 1 [id number], 7416177, 77599272, 6793346 #### [facility] (DEFAULT) [address] [place] [address] 07404 Globulin (S) [Mass/Vol] 1.7 g/dL Normal 1.5-4.[address] [facility] Comment on above: Performed By: #### 1 [id number], 3350295, 26381305, 0758993 #### [facility] (DEFAULT) [address] [place] [address] 33992 Glucose [Mass/Vol] 80.0 mg/dL Normal 74.0-118.0 [facility] Comment on above: Performed By: #### 1 [id number], 4440230, 82733889, 4524337 #### [facility] (DEFAULT) [address] [place] [address] 81730 Osmolality 279 mOsm/L Invalid Interpretation Code [facility] Comment on above: Performed By: #### 1 [id number], 5759841, 05954978, 1429094 #### [facility] (DEFAULT) [address] [place] [address] 78388 Potassium [Moles/Vol] 5.5 mmol/L High 3.6-5.[address] [facility] Comment on above: Performed By: #### 1 [id number], 3599021, 76783847, 3114988 #### [facility] (DEFAULT) [address] [place] [address] 45521 Protein [Mass/Vol] 4.7 g/dL Low 6.5-8.1 [facility] Comment on above: Performed By: #### 1 [id number], 0743616, 57055207, 5230440 #### [facility] (DEFAULT) [address] [place] [address] 62590 Sodium [Moles/Vol] 140.0 mmol/L Normal 136.0-144.0 [facility] Comment on above: Performed By: #### 1 [id number], 0035696, 12296611, 4969945 #### [facility] (DEFAULT) [address] [place] [address] 68231 Urea nitrogen [Mass/Vol] 14 mg/dL Normal 8-[address] [facility] Comment on above: Performed By: #### 1 [id number], 8406085, 90196928, 6078688 #### [facility] (DEFAULT) [address] [place] [address] 27420 Urea nitrogen/Creatinin e [Mass ratio] 21.0 mg/mg High 4.6-16.[address] [facility] Comment on above: Performed By: #### 1 [id number], 7681732, 82963747, 5177982 #### [facility] (DEFAULT) [address] [place] [address] 34411 Inpatient Patient Summaryon 08-14-2021 Inpatient Patient Summary [address] [address] Patient Discharge Instructions Name: ASHVIN RENE : 1955 Patient Address: [address] [place] [address] Primary Care Provider: Name: RUSS CHRISTOPHER TUSHAR After you are discharged if you find you have any questions, please, call [phone] ext [phone] to speak to a nurse. [...] alcohol and/or drug addiction problems; contact the [facility] 03/02 Crisis Hotline -Text 4HOPE to 987821. If you received any narcotics, sedation, or [...] business decisions or sign any legal documents [facility] would like to thank you for allowing us to assist you with your healthcare needs. The following includes patient education materials and information regarding your injury/illness. ASHVIN RENE has been given the following list of follow-up instructions, prescriptions, and patient education materials: Follow-up Instructions With: Address: When: TUSHAR SOLANO JR. [address] [place] [address] Business (1) 08/21/2021 2:45 PM Medications During the course of your visit, your medication list was updated with the most current information. The details of those changes are reflected below: New Medications [facility], [address] [place] [address] [phone], [phone] ferrous sulfate (ferrous sulfate 325 mg (65 [...] IN MORNING MEAL, HOLD IF STANDING BP [id number]. Medications to Continue That Have Not Changed [...] mg oral tablet) potassium chloride (Potassium Chloride (Sfk-Syav-Onn 10) 10 mEq oral tablet, extended release) [...] 250 mg oral (more content not included)... [facility] - [facility] Result[facility] Lab - AP Results [id number]#[id number] [facility] Pharmacy Noteon 08-14-2021 Pharmacy Note I have personally re viewed the patient's medication list upon discharge including, prescription medications, OTC products, vitamins and supplements. Below are the following medications the patient is discharged on. New Medications [facility], [address] [place] [address] [phone], [phone] ferrous sulfate (ferrous sulfate 325 mg (65 mg elemental iron) oral tablet) 1 tab(s) Oral 2 times a day for 30 Days. Refills: 1. torsemide (torsemide 20 mg oral tablet) 1 tab(s) Oral every other day for 30 Days. [facility]. Refills: 1. Medications That Were Updated - Follow Below Instructions Other Medications Updated: fludrocortisone (fludrocortisone 0.1 mg oral tablet) 0.5 tab(s) Oral every day. TAKE IN MORNING MEAL, HOLD IF STANDING BP [id number]. Updated: midodrine (midodrine 10 mg oral tablet) [...] Oral every day. potassium chloride (Potassium Chloride (Dis-Gqfz-Upi 10) 10 mEq oral tablet, extended release) 1 tab(s) Oral 3 times a day. vancomycin (Firvanq 25 mg/mL oral liquid) 5 Milliliter Oral 4 times a day. [Electronically Signed on: 08/14/2021 15:17 EST] Nadia Devi [Verified on: 08/14/2021 15:17 EST] Nadia Devi Normal [facility] .Auto Diff 1on 08-13-2021 Auto [place] % 6 % Normal [address] [facility] Comment on above: Performed By: #### 1 [id number], [id number], [id number], [id number] #### [facility] (DEFAULT) [address] [place] [address] 15968 Baso Abs# 0.0 x10 Normal 0.0-0.[address] [facility] Comment on above: Performed By: #### 1 [id number], [id number], [id number], [id number] #### [facility] (DEFAULT) [address] [place] [address] 00809 Basophils/100 WBC (Bld) 0.5 % Normal 0.2-2.[address] [facility] Comment on above: Performed By: #### 1 [id number], [id number], 67439862, 0211061 #### [facility] (DEFAULT) [address] [place] [address] 50030 Eos Abs# 0.1 x10 Normal 0.0-0.[address] [facility] Comment on above: Performed By: #### 1 [id number], 2474466, 88107836, 0372408 #### [facility] (DEFAULT) [address] [place] [address] 21297 Eosinophils/100 WBC (Bld) 1.7 % Normal 0.9-4.[address] [facility] Comment on above: Performed By: #### 1 [id number], 3104152, [id number], [id number] #### [facility] (DEFAULT) [address] [place] [address] 80734 Lymph Abs# 1.4 x10 Normal 1.3-2.[address] [facility] Comment on above: Performed By: #### 1 [id number], [id number], [id number], 2511451 #### [facility] (DEFAULT) [address] [place] [address] 66523 Lymphocytes/100 WBC (Bld) 21 % Normal 14-[address] [facility] Comment on above: Performed By: #### 1 [id number], 8924564, 44168420, [id number] #### [facility] (DEFAULT) [address] [place] [address] 08467 [place] Abs# 0.4 x10 Normal 0.0-0.[address] [facility] Comment on above: Performed By: #### 1 [id number], 6133524, 68679730, 0400970 #### [facility] (DEFAULT) [address] [place] [address] 40117 Neut Abs# 4.5 x10 Normal 1.5-9.[address] [facility] Comment on above: Performed By: #### 1 [id number], 4695654, 01276136, 2956245 #### [facility] (DEFAULT) [address] [place] [address] Neutrophils/100 WBC (Bld) 71 % Normal 44-[address] [facility] Comment on above: Performed By: #### 1 [id number], [id number], 88274256, 2975990 #### [facility] (DEFAULT) [address] [place] [address] ABORhon 08-13-2021 ABO and Rh group Nom (Bld) Placed by Discern Expert due to BBPR being ordered. Hx Check: Found Anti-A: 0 Anti-B: 0 Anti-D: 4+ DCon: NT A1: 4+ B: 4+ ABORh Interp: O POS Invalid Interpretation Code [facility] Comment on above: Performed By: #### 1 [id number], 3449957, 77372531, [id number] #### [facility] (DEFAULT) [address] [place] [address] ABSC Gelon 08-13-2021 ABSC Gel Placed by Discern Ex pert due to BBPR being ordered. SC1 Gel: 0 SC2 Gel: 0 SC3 Gel: 0 ABSC Gel Interp: Negative Normal [facility] Comment on above: Performed By: #### 1 [id number], [id number], 25963813, 8239965 #### [facility] (DEFAULT) [address] [place] [address] BMP Standard[place] 08-13-2021 Anion gap [Moles/Vol] 13.0 mmol/L Normal 5.0-19.[address] [facility] Comment on above: Performed By: #### 1 [id number], 9123202, 74730408, 2780822 #### [facility] (DEFAULT) [address] [place] [address] 04846 Calcium [Mass/Vol] 6.8 mg/dL Low 8.9-10.3 [facility] Comment on above: Performed By: #### 1 [id number], 9850765, 08598297, 2490211 #### [facility] (DEFAULT) [address] [place] [address] 55167 Chloride [Moles/Vol] 106 mmol/L Normal 101-[address] [facility] Comment on above: Performed By: #### 1 [id number], 3309781, 30734603, 7538344 #### [facility] (DEFAULT) [address] [place] [address] 16566 CO2 [Moles/Vol] 24 mmol/L Normal 21-[address] [facility] Comment on above: Performed By: #### 1 [id number], 3024241, 12746655, 4935489 #### [facility] (DEFAULT) [address] [place] [address] 38491 Creatinine [Mass/Vol] 0.65 mg/dL Normal 0.60-1.[address] [facility] Comment on above: Performed By: #### 1 [id number], 9024231, 32940715, 9753566 #### [facility] (DEFAULT) [address] [place] [address] 82703 Glucose [Mass/Vol] 108.0 mg/dL Normal 74.0-118.0 [facility] Comment on above: Performed By: #### 1 [id number], 4094275, 99017049, 2131912 #### [facility] (DEFAULT) [address] [place] [address] 47716 Osmolality 275 mOsm/L Invalid Interpretation Code [facility] Comment on above: Performed By: #### 1 [id number], 1087990, 34988887, 6856896 #### [facility] (DEFAULT) [address] [place] [address] 67226 Potassium [Moles/Vol] 5.0 mmol/L Normal 3.6-5.[address] [facility] Comment on above: Result Comment: Pota ssium medication/therapy Performed By: #### 1 [id number], 7128960, 74939036, [id number] #### [facility] (DEFAULT) [address] [place] [address] Sodium [Moles/Vol] 138.0 mmol/L Normal 136.0-144.0 [facility] Comment on above: Performed By: #### 1 [id number], 2764881, 55898990, 0507535 #### [facility] (DEFAULT) [address] [place] [address] Urea nitrogen [Mass/Vol] 10 mg/dL Normal 8-[address] [facility] Comment on above: Performed By: #### 1 [id number], 1944147, 78290723, 9404519 #### [facility] (DEFAULT) [address] [place] [address] Urea nitrogen/Creatinin e [Mass ratio] 15.0 mg/mg Normal 4.6-16.[address] [facility] Comment on above: Performed By: #### 1 [id number], 1648800, 36506986, 6208727 #### [facility] (DEFAULT) [address] [place] [address] eGFR Non AA >60 Invalid Interpretation Code [facility] Comment on above: Performed By: #### 1 [id number], 0022989, 47731071, 0098750 #### [facility] (DEFAULT) [address] [place] [address] eGFR AA >60 Invalid Interpretation Code [facility] Comment on above: Result Comment: Commissioning Manager juanito Kidney disease could be indicated at eGFRs of less than 60 ml/min/1.73m2. Kidney Failure is indicated at less than 15 ml/min/1.73m2 Performed By: #### 1 [id number], 6828919, 18272789, 2092707 #### [facility] (DEFAULT) [address] [place] [address] CBC w/ Auto Diffon 2 Erythrocyte distribution width (RBC) [Ratio] 17.8 % High 11.5-15.[address] [facility] Comment on above: Performed By: #### 1 [id number], 7092648, 16979461, 9734620 #### [facility] (DEFAULT) [address] [place] [address] 93950 Hematocrit (Bld) [Volume fraction] 26.7 % Low 33.7-40.[address] [facility] Comment on above: Performed By: #### 1 [id number], 1078405, 49203820, 8901904 #### [facility] (DEFAULT) [address] [place] [address] 64786 Hemoglobin (Bld) [Mass/Vol] 7.8 g/dL Low 11.3-15.[address] [facility] Comment on above: Performed By: #### 1 236366260, 0574388, 90349666, 0281203 #### [facility] (DEFAULT) [address] [place] [address] Instr WBC 6.4 x10 Invalid Interpretation Code [facility] Comment on above: Performed By: #### 1 [id number], 2993480, 24392824, 6022646 #### [facility] (DEFAULT) [address] [place] [address] 80080 Man Diff? Auto Normal [facility] Comment on above: Performed By: #### 1 [id number], 3494746, 78367917, 9560577 #### [facility] (DEFAULT) [address] [place] [address] 87126 MCH (RBC) [Entitic mass] 27 pg Normal 24-[address] [facility] Comment on above: Performed By: #### 1 [id number], 6043141, 50849073, 8138591 #### [facility] (DEFAULT) [address] [place] [address] 93201 MCHC (RBC) [Mass/Vol] 29 g/dL Normal 26-[address] [facility] Comment on above: Performed By: #### 1 000818519, 9462238, 29095010, 1770132 #### [facility] (DEFAULT) [address] [place] [address] 29793 MCV (RBC) [Entitic vol] 94 fL Normal 81-[address] [facility] Comment on above: Performed By: #### 1 150896313, 3172854, 92726023, 5421464 #### [facility] (DEFAULT) [address] [place] [address] Platelet 309 x10 Normal 138-[address] [facility] Comment on above: Performed By: #### 1 [id number], 3571887, 30664236, 7177236 #### [facility] (DEFAULT) [address] [place] [address] Platelet mean volume (Bld) [Entitic vol] 9.2 fL Normal 6.3-10.[address] [facility] Comment on above: Performed By: #### 1 132686394, 7864476, 03831242, 4332220 #### [facility] (DEFAULT) [address] [place] [address] RBC 2.85 x10 Low 3.70-5.[address] [facility] Comment on above: Performed By: #### 1 [id number], 4122170, 50108010, 4487986 #### [facility] (DEFAULT) [address] [place] [address] WBC 6.4 x10 Normal 3.5-10.[address] [facility] Comment on above: Performed By: #### 1 233091605, 8114882, 60405707, 0701521 #### [facility] (DEFAULT) [address] [place] [address] H&Hon 08-13-2021 Hematocrit (Bld) [Volume fraction] 29.9 % Low 33.7-40.[address] [facility] Comment on above: Performed By: #### 1 132919058, 1040022, 43680702, 6049609 #### [facility] (DEFAULT) [address] [place] [address] Hemoglobin (Bld) [Mass/Vol] 8.7 g/dL Low 11.3-15.[address] [facility] Comment on above: Performed By: #### 1 239954530, 9177926, 66099637, 4608107 #### [facility] (DEFAULT) [address] [place] [address] Magnesiumon 08-13-2021 Magnesium [Mass/Vol] 2.07 mg/dL Normal 1.80-2.[address] [facility] Comment on above: Performed By: #### 1 025606042, 1520886, 85784993, 9397978 #### [facility] (DEFAULT) [address] [place] [address] 46949 Nutrition Noteon 08-13-2021 Nutrition Note 08/12 wt 60.1kg, questionable 12kg loss from admit wt at 72kg. Pt did received lasix, IV alb with improvement noted in LE edema, however, still question loss of 26lb in less than 1wk. Alb back at 3.3, stable. H/H also on recheck, stable. Intake avg 25-50%. Per rounds, if hgb remains stable, Pt to be discharged back to [facility]. If discharge plans change, will re-add supplements. Will request re-weight in am. [facility] RBC.on 08-13-2021 RBC. # of Units: 1 RBC Indication: Symptom Anemia Additional Units?: No Date Needed: 08/13/2021 Red Cell Status: RBC Ready [facility] Comment on above: Performed By: #### 1 [id number], 7283291, 75896658, 5570672 #### [facility] (DEFAULT) [address] [place], [place] [address] Telemetry Stripson 2 Telemetry Strips [id number] [facility] .Auto Diff 1on 08-12-2021 Auto [place] % 8 % Normal 07-[address] [facility] Comment on above: Performed By: #### 7 388133, 77610329, 8243358, 9382149031 #### [facility] (DEFAULT) [address] [place] [address] 71555 Baso Abs# 0.0 x10 Normal 0.0-0.[address] [facility] Comment on above: Performed By: #### 7 266156, 46379947, 0195460, 9252302978 #### [facility] (DEFAULT) [address] [place] [address] 14389 Basophils/100 WBC (Bld) 0.7 % Normal 0.2-2.[address] [facility] Comment on above: Performed By: #### 7 351585, 93631622, 6684537, 4804143044 #### [facility] (DEFAULT) [address] [place] [address] 38035 Eos Abs# 0.1 x10 Normal 0.0-0.[address] [facility] Comment on above: Performed By: #### 7 113746, 62890695, 8341323, 9908854644 #### [facility] (DEFAULT) [address] [place] [address] 36512 Eosinophils/100 WBC (Bld) 1.8 % Normal 0.9-4.[address] [facility] Comment on above: Performed By: #### 7 389170, 08840922, 2706037, 7584330416 #### [facility] (DEFAULT) [address] [place] [address] 06117 Lymph Abs# 1.6 x10 Normal 1.3-2.[address] [facility] Comment on above: Performed By: #### 7 803232, 51661227, 5987079, 4534540565 #### [facility] (DEFAULT) [address] [place] [address] 52560 Lymphocytes/100 WBC (Bld) 30 % Normal 14-[address] [facility] Comment on above: Performed By: #### 7 752933, 97251454, 3532673, 4552853389 #### [facility] (DEFAULT) [address] [place] [address] 79660 [place] Abs# 0.4 x10 Normal 0.0-0.[address] [facility] Comment on above: Performed By: #### 7 848516, 17941264, 0726437, 9866465756 #### [facility] (DEFAULT) [address] [place] [address] 89822 Neut Abs# 3.2 x10 Normal 1.5-9.[address] [facility] Comment on above: Performed By: #### 7 807963, 58552397, 9210843, 1307863323 #### [facility] (DEFAULT) [address] [place] [address] 05411 Neutrophils/100 WBC (Bld) 60 % Normal 44-[address] [facility] Comment on above: Performed By: #### 7 151248, 97519610, 8374125, 9372910595 #### [facility] (DEFAULT) [address] [place] [address] CBC w/ Auto Diffon 2 Erythrocyte distribution width (RBC) [Ratio] 17.9 % High 11.5-15.[address] [facility] Comment on above: Performed By: #### 7 977064, 21397972, 8419145, 0449425789 #### [facility] (DEFAULT) [address] [place] [address] Hematocrit (Bld) [Volume fraction] 28.6 % Low 33.7-40.[address] [facility] Comment on above: Performed By: #### 7 268963, 58497291, 2411565, 8724514548 #### [facility] (DEFAULT) [address] [place] [address] Hemoglobin (Bld) [Mass/Vol] 8.5 g/dL Low 11.3-15.[address] [facility] Comment on above: Performed By: #### 7 165252, 96087743, 8513321, 6919495405 #### [facility] (DEFAULT) [address] [place] [address] Instr WBC 5.4 x10 Invalid Interpretation Code [facility] Comment on above: Performed By: #### 7 553074, 36891031, 8643988, 8306870184 #### [facility] (DEFAULT) [address] [place] [address] Man Diff? Auto Normal [facility] Comment on above: Performed By: #### 7 794244, 35202549, 6577846, 1303671859 #### [facility] (DEFAULT) [address] [place] [address] MCH (RBC) [Entitic mass] 28 pg Normal 24-[address] [facility] Comment on above: Performed By: #### 7 665561, 45665707, 6698768, 7680316552 #### [facility] (DEFAULT) [address] [place] [address] MCHC (RBC) [Mass/Vol] 30 g/dL Normal 26-[address] [facility] Comment on above: Performed By: #### 7 191585, 62611393, 9611126, [id number] #### [facility] (DEFAULT) [address] [place] [address] MCV (RBC) [Entitic vol] 94 fL Normal 81-[address] [facility] Comment on above: Performed By: #### 7 025241, 19233391, 2798784, 3534092945 #### [facility] (DEFAULT) [address] [place] [address] Platelet 305 x10 Normal 138-[address] [facility] Comment on above: Performed By: #### 7 752755, 40440904, 1920347, 9756380398 #### [facility] (DEFAULT) [address] [place] [address] Platelet mean volume (Bld) [Entitic vol] 9.8 fL Normal 6.3-10.[address] [facility] Comment on above: Performed By: #### 7 139355, 78066400, 8264152, 0009434999 #### [facility] (DEFAULT) [address] [place] [address] RBC 3.03 x10 Low 3.70-5.[address] [facility] Comment on above: Performed By: #### 7 556425, 89743917, 0040153, 4778534249 #### [facility] (DEFAULT) [address] [place] [address] WBC 5.4 x10 Normal 3.5-10.[address] [facility] Comment on above: Performed By: #### 7 715069, 25670010, 1580422, 5670576842 #### [facility] (DEFAULT) [address] [place] [address] CMP Standardon 08-12-2021 Albumin [Mass/Vol] 3.3 g/dL Low 3.5-5.0 [facility] Comment on above: Performed By: #### 7 556873, 06642985, 2412705, 7454748365 ####[facility] (DEFAULT)[address] [place] [address] Albumin/Globulin [Mass ratio] 2.4 {ratio} Normal 1.4-2.[address] [facility] Comment on above: Performed By: #### 7 129239, 63974419, 6332532, 7040966445 ####[facility] (DEFAULT)[address] [place] [address] Alk Phos 28 IU/L Low 32-[address] [facility] Comment on above: Performed By: #### 7 405817, 49465511, 6632385, 3953052405 ####[facility] (DEFAULT)[address] [place] [address] ALT [Catalytic activity/Vol] 14.0 U/L Normal 14.0-54.[address] [facility] Comment on above: Performed By: #### 7 313560, 22091075, 0495818, 3550384813 ####[facility] (DEFAULT)[address] [place] [address] Anion gap [Moles/Vol] 15.0 mmol/L Normal 5.0-19.[address] [facility] Comment on above: Performed By: #### 7 036161, 52360950, 5980133, 4726274582 ####[facility] (DEFAULT)[address] [place] [address] AST [Catalytic activity/Vol] 27 U/L Normal 15-[address] [facility] Comment on above: Performed By: #### 7 806468, 03164409, 5055493, 1243611716 ####[facility] (DEFAULT)[address] [place] [address] 66453 Bili Total 0.5 mg/dL Normal 0.3-1.[address] [facility] Comment on above: Performed By: #### 7 734702, 31974387, 0099885, 9684835061 ####[facility] (DEFAULT)[address] [place] [address] Calcium [Mass/Vol] 6.7 mg/dL Low 8.9-10.3 [facility] Comment on above: Performed By: #### 7 516002, 42185907, 9712975, 1195435307 ####[facility] (DEFAULT)[address] [place] [address] 16564 Chloride [Moles/Vol] 103 mmol/L Normal 101-[address] [facility] Comment on above: Performed By: #### 7 526846, 76521651, 9048812, 9886800568 ####[facility] (DEFAULT)[address] [place] [address] 05766 CO2 [Moles/Vol] 27 mmol/L Normal 21-[address] [facility] Comment on above: Performed By: #### 7 841544, 19305065, 1920897, 1380027392 ####[facility] (DEFAULT)[address] [place] [address] 48809 Creatinine [Mass/Vol] 0.68 mg/dL Normal 0.60-1.[address] [facility] Comment on above: Performed By: #### 7 205970, 00204379, 7738365, 7790144207 ####[facility] (DEFAULT)[address] [place] [address] 72588 Globulin (S) [Mass/Vol] 1.4 g/dL Low 1.5-4.[address] [facility] Comment on above: Performed By: #### 7 682771, 56079979, 9024269, 3693446076 ####[facility] (DEFAULT)[address] [place] [address] 03166 Glucose [Mass/Vol] 76.0 mg/dL Normal 74.0-118.0 [facility] Comment on above: Performed By: #### 7 231438, 37944437, 4833755, 8327501729 ####[facility] (DEFAULT)[address] [place] [address] 84143 Osmolality 278 mOsm/L Invalid Interpretation Code [facility] Comment on above: Performed By: #### 7 355381, 47759703, 1640775, 2422911486 ####[facility] (DEFAULT)[address] [place] [address] 18196 Potassium [Moles/Vol] 4.3 mmol/L Normal 3.6-5.[address] [facility] Comment on above: Result Comment: IV T herapy Performed By: #### 7 582436, 07775367, 1391326, 7718875264 ####[facility] (DEFAULT)[address] [place] [address] 63261 Protein [Mass/Vol] 4.7 g/dL Low 6.5-8.1 [facility] Comment on above: Performed By: #### 7 544988, 27125142, 3023074, 7492602393 ####[facility] (DEFAULT)[address] [place] [address] 33133 Sodium [Moles/Vol] 141.0 mmol/L Normal 136.0-144.0 [facility] Comment on above: Performed By: #### 7 092970, 63763955, 9098590, 1428895019 ####[facility] (DEFAULT)[address] [place] [address] Urea nitrogen [Mass/Vol] 8 mg/dL Normal 8-[address] [facility] Comment on above: Performed By: #### 7 391546, 34815340, 3239733, 6830302117 ####[facility] (DEFAULT)[address] [place] [address] 82195 Urea nitrogen/Creatinin e [Mass ratio] 12.0 mg/mg Normal 4.6-16.[address] [facility] Comment on above: Performed By: #### 7 788265, 97971776, 5846859, 9981762894 ####[facility] (DEFAULT)[address] [place] [address] 88262 eGFR Non AA >60 Invalid Interpretation Code [facility] Comment on above: Performed By: #### 7 644111, 98740258, 0917795, [id number] ####[facility] (DEFAULT)[address] [place] [address] 74883 eGFR AA >60 Invalid Interpretation Code [facility] Comment on above: Result Comment: Commissioning Manager juanito Kidney disease could be indicated at eGFRs of less than 60 ml/min/1.73m2. Kidney Failure is indicated at less than 15 ml/min/1.73m2 Performed By: #### 7 229385, 16652929, 7809706, 2548208229 ####[facility] (DEFAULT)[address] [place] [address] Magnesiumon 08-12-2021 Magnesium [Mass/Vol] 1.21 mg/dL Low 1.80-2.[address] [facility] Comment on above: Performed By: #### 7 066578, 11024816, 8251850, 0840792680 #### [facility] (DEFAULT) [address] [place] [address] .Auto Diff 1on 08-11-2021 Auto [place] % 8 % Normal 1-[address] [facility] Comment on above: Performed By: #### 2 476572, 4770062251, 1505506, 11429768 ####[facility] (DEFAULT)[address] [place] [address] Baso Abs# 0.0 x10 Normal 0.0-0.[address] [facility] Comment on above: Performed By: #### 2 224668, 8949708649, 7808861, 36989090 ####[facility] (DEFAULT)[address] [place] [address] Basophils/100 WBC (Bld) 0.6 % Normal 0.2-2.[address] [facility] Comment on above: Performed By: #### 2 763742, 9153010718, 4257315, 13308221 ####[facility] (DEFAULT)[address] [place] [address] Eos Abs# 0.2 x10 Normal 0.0-0.[address] [facility] Comment on above: Performed By: #### 2 944157, 5269720329, 5090718, 76410295 ####[facility] (DEFAULT)[address] [place] [address] Eosinophils/100 WBC (Bld) 3.1 % Normal 0.9-4.[address] [facility] Comment on above: Performed By: #### 2 990241, 0512335193, 9488366, 64181857 ####[facility] (DEFAULT)[address] [place] [address] Lymph Abs# 1.4 x10 Normal 1.3-2.[address] [facility] Comment on above: Performed By: #### 2 039263, 2226038336, 2074181, 77689750 ####[facility] (DEFAULT)[address] [place] [address] Lymphocytes/100 WBC (Bld) 28 % Normal 14-[address] [facility] Comment on above: Performed By: #### 2 182723, 4346449019, 3437393, 86391043 ####[facility] (DEFAULT)[address] [place] [address] [place] Abs# 0.4 x10 Normal 0.0-0.[address] [facility] Comment on above: Performed By: #### 2 609110, 5951131972, 9502367, 36775722 ####[facility] (DEFAULT)[address] [place] [address] Neut Abs# 3.2 x10 Normal 1.5-9.[address] [facility] Comment on above: Performed By: #### 2 429331, 2216777890, 2353595, 65686181 ####[facility] (DEFAULT)[address] [place] [address] Neutrophils/100 WBC (Bld) 61 % Normal 44-[address] [facility] Comment on above: Performed By: #### 2 294405, 0125638979, 0088209, 38147849 ####[facility] (DEFAULT)[address] [place] [address] Standardon 08-11-2021 eGFR Non AA >60 Invalid Interpretation Code [facility] Comment on above: Performed By: #### 2 618068, 4633134909, 5438655, 59089657 ####[facility] (DEFAULT)[address] [place] [address] eGFR AA >60 Invalid Interpretation Code [facility] Comment on above: Result Comment: Commissioning Manager juanito Kidney disease could be indicated at eGFRs of less than 60 ml/min/1.73m2. Kidney Failure is indicated at less than 15 ml/min/1.73m2 Performed By: #### 2 790013, 3691966395, 7683352, 45458529 ####[facility] (DEFAULT)[address] [place] [address] 27663 Anion gap [Moles/Vol] 17.0 mmol/L Normal 5.0-19.[address] [facility] Comment on above: Performed By: #### 2 180262, 8328431475, 4042220, 84395413 ####[facility] (DEFAULT)[address] [place] [address] 65020 Calcium [Mass/Vol] 6.7 mg/dL Low 8.9-10.3 [facility] Comment on above: Performed By: #### 2 254042, 4128413545, 0860792, 49002005 ####[facility] (DEFAULT)[address] [place] [address] 15549 Chloride [Moles/Vol] 104 mmol/L Normal 101-[address] [facility] Comment on above: Performed By: #### 2 046769, 3755038511, 3583705, 66828812 ####[facility] (DEFAULT)[address] [place] [address] 63360 CO2 [Moles/Vol] 24 mmol/L Normal 21-[address] [facility] Comment on above: Performed By: #### 2 840855, 5873686364, 3001644, 55156395 ####[facility] (DEFAULT)[address] [place] [address] 48650 Creatinine [Mass/Vol] 0.57 mg/dL Low 0.60-1.[address] [facility] Comment on above: Performed By: #### 2 833892, 6544808734, 0909387, 85275378 ####[facility] (DEFAULT)[address] [place] [address] 93123 Glucose [Mass/Vol] 81.0 mg/dL Normal 74.0-118.0 [facility] Comment on above: Performed By: #### 2 810714, 3745306915, 6059441, 80925836 ####[facility] (DEFAULT)[address] [place] [address] 93588 Osmolality 278 mOsm/L Invalid Interpretation Code [facility] Comment on above: Performed By: #### 2 768857, 3863581959, 7490349, 42261068 ####[facility] (DEFAULT)[address] [place] [address] 51805 Potassium [Moles/Vol] 3.6 mmol/L Normal 3.6-5.[address] [facility] Comment on above: Performed By: #### 2 212829, 1196853251, 4674158, 50466580 ####[facility] (DEFAULT)[address] [place] [address] 09653 Sodium [Moles/Vol] 141.0 mmol/L Normal 136.0-144.0 [facility] Comment on above: Performed By: #### 2 045719, 2079695468, 0761506, 73817105 ####[facility] (DEFAULT)[address] [place] [address] Urea nitrogen [Mass/Vol] 6 mg/dL Low 8-[address] [facility] Comment on above: Performed By: #### 2 999303, 4111225516, 8762396, 74905016 ####[facility] (DEFAULT)[address] [place] [address] Urea nitrogen/Creatinin e [Mass ratio] 11.0 mg/mg Normal 4.6-16.[address] [facility] Comment on above: Performed By: #### 2 862276, 3340497434, 7515313, 92299749 ####[facility] (DEFAULT)[address] [place] [address] 92191 CBC w/ Auto Diffon 2 Erythrocyte distribution width (RBC) [Ratio] 17.9 % High 11.5-15.[address] [facility] Comment on above: Performed By: #### 2 932498, 8735295323, 3946871, 57408938 ####[facility] (DEFAULT)[address] [place] [address] Hematocrit (Bld) [Volume fraction] 26.2 % Low 33.7-40.[address] [facility] Comment on above: Performed By: #### 2 801492, 5671068563, 6244070, 96170599 ####[facility] (DEFAULT)[address] [place], [place] [address] Hemoglobin (Bld) [Mass/Vol] 7.8 g/dL Low 11.3-15.[address] [facility] Comment on above: Performed By: #### 2 847462, 2769162484, 2115934, 38755974 ####[facility] (DEFAULT)[address] [place] [address] Instr WBC 5.2 x10 Invalid Interpretation Code [facility] Comment on above: Performed By: #### 2 898293, 6906015988, 6028533, 08933370 ####[facility] (DEFAULT)[address] [place] [address] Man Diff? Auto Normal [facility] Comment on above: Performed By: #### 2 925676, 0360682865, 7645960, 56989113 ####[facility] (DEFAULT)[address] [place] [address] 60343 MCH (RBC) [Entitic mass] 28 pg Normal 24-[address] [facility] Comment on above: Performed By: #### 2 [id number], [id number], [id number], [id number] ####[facility] (DEFAULT)[address] [place] [address] MCHC (RBC) [Mass/Vol] 30 g/dL Normal 26-[address] [facility] Comment on above: Performed By: #### 2 [id number], [id number], [id number], [id number] ####[facility] (DEFAULT)[address] [place] [address] MCV (RBC) [Entitic vol] 93 fL Normal 81-[address] [facility] Comment on above: Performed By: #### 2 [id number], [id number], [id number], [id number] ####[facility] (DEFAULT)[address] [place] [address] Platelet 291 x10 Normal 138-[address] [facility] Comment on above: Performed By: #### 2 [id number], [id number], [id number], [id number] ####[facility] (DEFAULT)[address] [place] [address] 35531 Platelet mean volume (Bld) [Entitic vol] 9.6 fL Normal 6.3-10.[address] [facility] Comment on above: Performed By: #### 2 [id number], [id number], [id number], [id number] ####[facility] (DEFAULT)[address] [place] [address] RBC 2.82 x10 Low 3.70-5.[address] [facility] Comment on above: Performed By: #### 2 [id number], [id number], [id number], [id number] ####[facility] (DEFAULT)[address] [place] [address] WBC 5.2 x10 Normal 3.5-10.[address] [facility] Comment on above: Performed By: #### 2 [id number], [id number], 8398874, 69835696 ####[facility] (DEFAULT)[address] [place] [address] Magnesiumon 08-11-2021 Magnesium [Mass/Vol] 1.43 mg/dL Low 1.80-2.[address] [facility] Comment on above: Performed By: #### 2 063716, 3321241043, 8858025, 39166294 ####[facility] (DEFAULT)[address] [place] [address] PTH, Intact LCon 08-11-2021 PTH, Intact LC 125 pg/mL High 15-[address] [facility] Comment on above: Result Comment: Perf ormed At: [facility] [address] [id number] Brenna Iyer PhD Ph:[phone] Performed By: #### 2 [id number], [id number] ####[facility] (DEFAULT)[address] [place] [address] .Auto Diff 1on 08-10-2021 Auto [place] % 8 % Normal 1-[address] [facility] Comment on above: Performed By: #### 1 [id number], 4679011361, 4746956, 22114308, 4116677, 2085075192 ####[facility] (DEFAULT)[address] [place] [address] Baso Abs# 0.0 x10 Normal 0.0-0.[address] [facility] Comment on above: Performed By: #### 1 118563160, 0858844277, 1564078, 28566304, 7476705, 3457247435 ####[facility] (DEFAULT)[address] [place] [address] 38407 Basophils/100 WBC (Bld) 0.8 % Normal 0.2-2.[address] [facility] Comment on above: Performed By: #### 1 784137576, 5116191585, 5917881, 08761681, 1575494, 9647832773 ####[facility] (DEFAULT)[address] [place] [address] 54568 Eos Abs# 0.2 x10 Normal 0.0-0.[address] [facility] Comment on above: Performed By: #### 1 548917627, 9015740531, 9578347, 22247368, 1073571, 1559681080 ####[facility] (DEFAULT)[address] [place] [address] 17784 Eosinophils/100 WBC (Bld) 3.3 % Normal 0.9-4.[address] [facility] Comment on above: Performed By: #### 1 339501388, 0123120404, 8556363, 44374909, 0711356, 9920207994 ####[facility] (DEFAULT)[address] [place] [address] 88271 Lymph Abs# 1.2 x10 Low 1.3-2.[address] [facility] Comment on above: Performed By: #### 1 859361231, 4706435822, 4862555, 77412419, 1263231, 5119877364 ####[facility] (DEFAULT)[address] [place] [address] 82916 Lymphocytes/100 WBC (Bld) 24 % Normal 14-[address] [facility] Comment on above: Performed By: #### 1 600397646, 0725134466, 0038253, 45740796, 3605998, 0024187680 ####[facility] (DEFAULT)[address] [place] [address] [place] Abs# 0.4 x10 Normal 0.0-0.[address] [facility] Comment on above: Performed By: #### 1 461408428, 3389853781, 8158823, 70409904, 5125556, 7100042731 ####[facility] (DEFAULT)[address] [place] [address] Neut Abs# 3.1 x10 Normal 1.5-9.[address] [facility] Comment on above: Performed By: #### 1 833531295, 1236807312, 8902557, 25944543, 6849212, 5344811671 ####[facility] (DEFAULT)[address] [place] [address] Neutrophils/100 WBC (Bld) 64 % Normal 44-[address] [facility] Comment on above: Performed By: #### 1 979910774, 7511567892, 5574551, 17024054, 3973766, 3025128807 ####[facility] (DEFAULT)[address] [place] [address] Anesthesia Noteon 08-10-2021 Anesthesia Note Patient: SUSAN [...] on: 08/10/2021 10:12 EST] Rony Ordonez MD [facility] Anesthesia Note Patient: SUSAN RENE Age: [...] on: 08/10/2021 10:00 EST] Rony Ordonez MD [facility] Anesthesia Note Patient: SUSAN RENE Age: 65 years Sex: FEMALE : 1955 Associated Diagnoses: None Author: Rony Ordonez MD Preoperative Information Anesthesia history: Patient history: No difficult intubation, No malignant hyperthermia. Family history: No malignant hyperthermia. Review of Systems Respiratory: recent COVID positive but no symptoms at present pulmonary payne, No shortness of breath, No apnea. 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 Hysterectomy (258495351). Social History Electronic Cigarette/Vaping Assessment Electronic Cigarette [...] % Auto Lymph % 24 % Auto [place] % 8 % Auto Eos % 3.3 % Auto Baso % 0.8 % Neut Abs# 3.1 x103/mcL Lymph Abs# 1.2 x103/mcL LOW [place] Abs# 0.4 x103/mcL Eos Abs# 0.2 x103/mcL Baso Abs# 0.0 x103/mcL Sodium Level 142.0 mmol/L Potassium Level 3.8 mmol/L Chloride Level 105 mmol/L CO2 25 mmol/L Anion Gap 16.0 mmol/L Glucose Level 74.0 mg/dL BUN 6 mg/dL LOW Creatinine Level 0.64 mg/dL BUN/Creat Ratio 9.0 eGFR AA >60 mL/min/1.73m2 NA eGFR Non A (more content not included)... Normal [facility] CBC w/ Auto Diffon 2 Erythrocyte distribution width (RBC) [Ratio] 18.0 % High 11.5-15.[address] [facility] Comment on above: Performed By: #### 1 115719106, 8219520909, 6274180, 60644485, 8219262, 4227684803 ####[facility] (DEFAULT)[address] [place] [address] 69406 Hematocrit (Bld) [Volume fraction] 25.6 % Low 33.7-40.[address] [facility] Comment on above: Performed By: #### 1 903152730, 0698300941, 5937906, 12824530, 2717918, 0532577615 ####[facility] (DEFAULT)[address] [place] [address] 06742 Hemoglobin (Bld) [Mass/Vol] 7.6 g/dL Low 11.3-15.[address] [facility] Comment on above: Performed By: #### 1 283993547, 4352441707, 2877440, 34260916, 0620458, 9614206032 ####[facility] (DEFAULT)[address] [place] [address] Instr WBC 4.9 x10 Invalid Interpretation Code [facility] Comment on above: Performed By: #### 1 230193167, 5085044842, 8500262, 46855488, 6890720, 1666297320 ####[facility] (DEFAULT)[address] [place] [address] 95076 Man Diff? Auto Normal [facility] Comment on above: Performed By: #### 1 206264038, 6059874517, 7655411, 14645542, 8426885, 8152288916 ####[facility] (DEFAULT)[address] [place] [address] 75413 MCH (RBC) [Entitic mass] 28 pg Normal 24-[address] [facility] Comment on above: Performed By: #### 1 505928390, 1575556414, 4091395, 72152450, 5160982, 8515892567 ####[facility] (DEFAULT)[address] [place] [address] 43671 MCHC (RBC) [Mass/Vol] 30 g/dL Normal 26-[address] [facility] Comment on above: Performed By: #### 1 505428918, 5756650891, 7589885, 86352200, 3360944, 6448814680 ####[facility] (DEFAULT)[address] [place] [address] 06655 MCV (RBC) [Entitic vol] 93 fL Normal 81-[address] [facility] Comment on above: Performed By: #### 1 931019764, 5920794936, 4059440, 67129073, 7926752, 0280994824 ####[facility] (DEFAULT)[address] [place] [address] 26366 Platelet 345 x10 Normal 138-[address] [facility] Comment on above: Performed By: #### 1 123837453, 7271410828, 1778401, 84506623, 9373113, 1525532483 ####[facility] (DEFAULT)[address] [place] [address] 69900 Platelet mean volume (Bld) [Entitic vol] 9.3 fL Normal 6.3-10.[address] [facility] Comment on above: Performed By: #### 1 239235397, 9894368206, 3928679, 57291161, 4121508, 2329272179 ####[facility] (DEFAULT)[address] [place] [address] RBC 2.74 x10 Low 3.70-5.[address] [facility] Comment on above: Performed By: #### 1 623669787, 7165978006, 6181993, 47344202, 3953776, 5504356471 ####[facility] (DEFAULT)[address] [place] [address] WBC 4.9 x10 Normal 3.5-10.[address] [facility] Comment on above: Performed By: #### 1 084326147, 9898628515, 5703965, 62319605, 9288794, 6796979394 ####[facility] (DEFAULT)[address] [place] [address] Standardon 08-10-2021 eGFR Non AA >60 Invalid Interpretation Code [facility] Comment on above: Performed By: #### 1 046861773, 4480261224, 3583269, 58564430, 6774428, 8074207197 ####[facility] (DEFAULT)[address] [place] [address] 94739 eGFR AA >60 Invalid Interpretation Code [facility] Comment on above: Result Comment: Commissioning Manager juanito Kidney disease could be indicated at eGFRs of less than 60 ml/min/1.73m2. Kidney Failure is indicated at less than 15 ml/min/1.73m2 Performed By: #### 1 262029556, 8293885526, 3449465, 35503380, 3168147, 0424125030 ####[facility] (DEFAULT)[address] [place] [address] 58708 Albumin [Mass/Vol] 3.3 g/dL Low 3.5-5.0 [facility] Comment on above: Performed By: #### 1 235911926, 1573153513, 1176100, 35560619, 3587959, 6988133675 ####[facility] (DEFAULT)[address] [place] [address] Albumin/Globulin [Mass ratio] 2.4 {ratio} Normal 1.4-2.[address] [facility] Comment on above: Performed By: #### 1 110982089, 2461911020, 8775530, 67371335, 0275047, 6518884067 ####[facility] (DEFAULT)[address] [place] [address] Alk Phos 27 IU/L Low 32-[address] [facility] Comment on above: Performed By: #### 1 923573964, 9732315844, 6377146, 31834510, 0267292, 4117485649 ####[facility] (DEFAULT)[address] [place] [address] ALT [Catalytic activity/Vol] 14.0 U/L Normal 14.0-54.[address] [facility] Comment on above: Performed By: #### 1 833402051, 0482232551, 7633199, 49164890, 4119157, 1582161809 ####[facility] (DEFAULT)[address] [place] [address] Anion gap [Moles/Vol] 16.0 mmol/L Normal 5.0-19.[address] [facility] Comment on above: Performed By: #### 1 395125912, 0048831527, 1866178, 59405465, 8787558, 7254254281 ####[facility] (DEFAULT)[address] [place] [address] 31573 AST [Catalytic activity/Vol] 23 U/L Normal 15-[address] [facility] Comment on above: Performed By: #### 1 104912630, 3192444462, 1720481, 56038339, 0346544, 8115855541 ####[facility] (DEFAULT)[address] [place] [address] Bili Total 0.3 mg/dL Normal 0.3-1.[address] [facility] Comment on above: Performed By: #### 1 314126378, 3207532706, 1857777, 54864865, 9482686, 5152470700 ####[facility] (DEFAULT)[address] [place] [address] 67801 Calcium [Mass/Vol] 6.4 mg/dL Low 8.9-10.3 [facility] Comment on above: Performed By: #### 1 715322743, 3881042726, 1820733, 12495087, 4989016, 7597703977 ####[facility] (DEFAULT)[address] [place] [address] 25619 Chloride [Moles/Vol] 105 mmol/L Normal 101-[address] [facility] Comment on above: Performed By: #### 1 235531479, 3555449869, 8402842, 21503834, 3636300, 4722186223 ####[facility] (DEFAULT)[address] [place] [address] 12420 CO2 [Moles/Vol] 25 mmol/L Normal 21-[address] [facility] Comment on above: Performed By: #### 1 507570578, 2104139836, 4870574, 70874905, 0345901, 2283245821 ####[facility] (DEFAULT)[address] [place] [address] 88130 Creatinine [Mass/Vol] 0.64 mg/dL Normal 0.60-1.[address] [facility] Comment on above: Performed By: #### 1 520803999, 2768822963, 2805844, 03300654, 3343622, 8246150885 ####[facility] (DEFAULT)[address] [place] [address] 66380 Globulin (S) [Mass/Vol] 1.4 g/dL Low 1.5-4.[address] [facility] Comment on above: Performed By: #### 1 293443517, 0064223780, 7073607, 98736736, 4562111, 9610899044 ####[facility] (DEFAULT)[address] [place] [address] 74899 Glucose [Mass/Vol] 74.0 mg/dL Normal 74.0-118.0 [facility] Comment on above: Performed By: #### 1 718781320, 5363659583, 0430621, 92010618, 4529808, 5672996250 ####[facility] (DEFAULT)[address] [place] [address] 78698 Osmolality 279 mOsm/L Invalid Interpretation Code [facility] Comment on above: Performed By: #### 1 561162279, 0703657722, 2319620, 21460549, 5506568, 6445856782 ####[facility] (DEFAULT)[address] [place] [address] 33661 Potassium [Moles/Vol] 3.8 mmol/L Normal 3.6-5.[address] [facility] Comment on above: Performed By: #### 1 234485501, 1677209670, 4927416, 03679602, 7382968, 6459833063 ####[facility] (DEFAULT)[address] [place] [address] 86238 Protein [Mass/Vol] 4.7 g/dL Low 6.5-8.1 [facility] Comment on above: Performed By: #### 1 942270810, 9087425780, 2351610, 68667948, 4078350, 9944910842 ####[facility] (DEFAULT)[address] [place] [address] 66807 Sodium [Moles/Vol] 142.0 mmol/L Normal 136.0-144.0 [facility] Comment on above: Performed By: #### 1 517021719, 7456359992, 4210105, 70589978, 6330910, 7474091325 ####[facility] (DEFAULT)[address] [place] [address] 34852 Urea nitrogen [Mass/Vol] 6 mg/dL Low 8-[address] [facility] Comment on above: Performed By: #### 1 656343545, 4839340578, 3350279, 78002301, 1417517, 1806584400 ####[facility] (DEFAULT)[address] [place] [address] 61700 Urea nitrogen/Creatinin e [Mass ratio] 9.0 mg/mg Normal 4.6-16.[address] [facility] Comment on above: Performed By: #### 1 765527559, 2996765793, 4805750, 86157153, 5773349, 1076302583 ####[facility] (DEFAULT)[address] [place] [address] 25028 Extra Greyon 08-10-2021 Tube Collected Yes Invalid Interpretation Code [facility] Comment on above: Performed By: #### 2 314802831, 54699222 ####[facility] (DEFAULT)[address] [place] [address] 39994 Extra [place]on 08-10-2021 Tube Collected Yes Invalid Interpretation Code [facility] Comment on above: Performed By: #### 1 330810153, 0648707258, 2874534, 76876332, 4777326, 6924862888 ####[facility] (DEFAULT)[address] [place] [address] 01481 MAGR Intraoperative Recordon 08-10-2021 MAGR Intraoperative Record MAGR Intra-Op Record Summary Primary Physician: Noe Reed MD Finalized Date/Time: 08/10/21 10:21:22 Pt. Name: ASHVIN RENE /Sex: 1955 FEMALE Med Rec #: [id number] Physician: Norman Hughes MD Financial #: [id number] Pt. Type: I Room/Bed: [facility] [...] Role Performed Surgeon - Primary Anesthesiologist of Small Piece Cutter Record Time In 08/10/21 09:00:00 08/10/21 09:00:00 08/10/21 09:00:00 Time Out 08/10/21 10:01:00 08/10/21 10:01:00 08/10/21 10:01:00 Procedure Esophagogastroduodenosco Esophagogastroduodenosco Esophagogastroduodenosco py and Colonosco py and Colonosco py and Colonosco Last Modified By: Helena Sandoval 08/10/21 Helena Sandoval 08/10/21 Helena Sandoval 08/10/21 10:19:10 10:19:10 10:19:10 Entry 4 Entry 5 Case Attendee Mandy Perdomo RN, Regina CST Role Performed Small Piece Cutter Scrub Personnel Time In 08/10/21 09:00:00 08/10/21 [...] injury r (more content not included)... Normal [facility] 08-10-2021 Magnesium [Mass/Vol] 1.50 mg/dL Low 1.80-2.[address] [facility] Comment on above: Performed By: #### 1 127318652, 2387995894, 0721068, 75190101, 3675430, 3183178720 ####[facility] (DEFAULT)[address] [place] [address] Nutrition Noteon 08-10-2021 Nutrition Note No new wts, Per inta ke records, Pt intake ranging 25-100%, eating better for lunch. Pt also taking supplements well. These appear to have been discontinued for scheduled colonscopy/EGD this am and not resumed. Per MD notes, tests unremarkable. With improving intake avg >/+ 50% of most meals, will hold off from re-adding Ensure. Will continue to monitor. [facility] Progress Note - Nurseon 07-15 Progress Note - Nurse pt returns from recovery. alert and drowsy. iv intact. pt able to tolerate water with no issues. denies pain. report received from holly perdomo RN. will continue to monitor. [Electronically Signed on: 08/10/2021 11:35 EST] Joslyn Roth RN [Verified on: 08/10/2021 11:35 EST] Joslyn Roth RN [facility] Telemetry Stripson Telemetry Strips [id number]#1.00OTGTIFF [facility] Telemetry Strips [id number]#1.00OTGTIFF [facility] .Auto Diff 1on 08-09-2021 Auto [place] % 10 % Normal 07-[address] [facility] Comment on above: Performed By: #### 2 521526, 8493448571, 9020896, 42585420 ####[facility] (DEFAULT)[address] [place] [address] 75568 Baso Abs# 0.0 x10 Normal 0.0-0.[address] [facility] Comment on above: Performed By: #### 2 339372, 6719983871, 9957390, 86205630 ####[facility] (DEFAULT)[address] [place] [address] 91292 Basophils/100 WBC (Bld) 0.6 % Normal 0.2-2.[address] [facility] Comment on above: Performed By: #### 2 827032, 3847061701, 7542616, 72107356 ####[facility] (DEFAULT)[address] [place] [address] 61686 Eos Abs# 0.2 x10 Normal 0.0-0.[address] [facility] Comment on above: Performed By: #### 2 670037, 9389115317, 0906369, 73836990 ####[facility] (DEFAULT)[address] [place] [address] 72488 Eosinophils/100 WBC (Bld) 3.3 % Normal 0.9-4.[address] [facility] Comment on above: Performed By: #### 2 386562, 6905840546, 5857871, 35314651 ####[facility] (DEFAULT)[address] [place] [address] 22791 Lymph Abs# 1.2 x10 Low 1.3-2.[address] [facility] Comment on above: Performed By: #### 2 135425, 7376360083, 5024956, 91428337 ####[facility] (DEFAULT)[address] [place] [address] 21289 Lymphocytes/100 WBC (Bld) 21 % Normal 14-[address] [facility] Comment on above: Performed By: #### 2 005051, 5441867988, 1012906, 24735642 ####[facility] (DEFAULT)[address] [place] [address] 34450 [place] Abs# 0.5 x10 Normal 0.0-0.[address] [facility] Comment on above: Performed By: #### 2 213726, 5236701804, 0480009, 95104259 ####[facility] (DEFAULT)[address] [place] [address] 51269 Neut Abs# 3.6 x10 Normal 1.5-9.[address] [facility] Comment on above: Performed By: #### 2 400824, 5545202556, 9720296, 81676357 ####[facility] (DEFAULT)[address] [place] [address] Neutrophils/100 WBC (Bld) 65 % Normal 44-[address] [facility] Comment on above: Performed By: #### 2 785591, 7778402594, 9320542, 96433479 ####[facility] (DEFAULT)[address] [place] [address]15[facility] Standardon 08-09-2021 eGFR Non AA >60 Invalid Interpret[address] Code [facility] Comment on above: Performed By: #### 2 559651, 3618317788, 5927926, 71873756 ####[facility] (DEFAULT)[address] [place] [address] eGFR AA >60 Invalid Interpretation Code [facility] Comment on above: Result Comment: Commissioning Manager juanito Kidney disease could be indicated at eGFRs of less than 60 ml/min/1.73m2. Kidney Failure is indicated at less than 15 ml/min/1.73m2 Performed By: #### 2 224900, 3877020926, 3787660, 32957076 ####[facility] (DEFAULT)[address] [place] [address] 47526 Anion gap [Moles/Vol] 16.0 mmol/L Normal 5.0-19.[address] [facility] Comment on above: Performed By: #### 2 709238, 2283461890, 6646689, 31710884 ####[facility] (DEFAULT)[address] [place] [address] 95940 Calcium [Mass/Vol] 6.2 mg/dL Low 8.9-10.3 [facility] Comment on above: Performed By: #### 2 498298, 3383144368, 3389792, 99491352 ####[facility] (DEFAULT)[address] [place] [address] 80368 Chloride [Moles/Vol] 107 mmol/L Normal 101-[address] [facility] Comment on above: Performed By: #### 2 621922, 8643430666, 5644440, 46111867 ####[facility] (DEFAULT)[address] [place] [address] 82392 CO2 [Moles/Vol] 24 mmol/L Normal 21-[address] [facility] Comment on above: Performed By: #### 2 965107, 4497735909, 3469221, 34262581 ####[facility] (DEFAULT)[address] [place] [address] 81466 Creatinine [Mass/Vol] 0.72 mg/dL Normal 0.60-1.[address] [facility] Comment on above: Performed By: #### 2 346135, 7560558940, 5868448, 32516617 ####[facility] (DEFAULT)[address] [place] [address] 36400 Glucose [Mass/Vol] 79.0 mg/dL Normal 74.0-118.0 [facility] Comment on above: Performed By: #### 2 866119, 2383818528, 0044224, 15850771 ####[facility] (DEFAULT)[address] [place] [address] 60141 Osmolality 282 mOsm/L Invalid Interpretation Code [facility] Comment on above: Performed By: #### 2 721241, 5658957303, 2869378, 64429097 ####[facility] (DEFAULT)[address] [place] [address] 11590 Potassium [Moles/Vol] 3.9 mmol/L Normal 3.6-5.[address] [facility] Comment on above: Performed By: #### 2 277249, 5463323592, 2197331, 42860367 ####[facility] (DEFAULT)[address] [place] [address] 88694 Sodium [Moles/Vol] 143.0 mmol/L Normal 136.0-144.0 [facility] Comment on above: Performed By: #### 2 784261, 3666813033, 7374349, 67616690 ####[facility] (DEFAULT)[address] [place] [address] Urea nitrogen [Mass/Vol] 8 mg/dL Normal 8-[address] [facility] Comment on above: Performed By: #### 2 481246, 2931139810, 0929492, 78258807 ####[facility] (DEFAULT)[address] [place] [address] Urea nitrogen/Creatinin e [Mass ratio] 11.0 mg/mg Normal 4.6-16.[address] [facility] Comment on above: Performed By: #### 2 597372, 0232787016, 7734229, 16134236 ####[facility] (DEFAULT)[address] [place] [address] CBC w/ Auto Diffon Erythrocyte distribution width (RBC) [Ratio] 17.9 % High 11.5-15.[address] [facility] Comment on above: Performed By: #### 2 689659, 4725293426, 3206774, 81359126 ####[facility] (DEFAULT)[address] [place] [address] Hematocrit (Bld) [Volume fraction] 24.1 % Low 33.7-40.[address] [facility] Comment on above: Performed By: #### 2 825374, 2393863637, 2992681, 80887644 ####[facility] (DEFAULT)[address] [place] [address] Hemoglobin (Bld) [Mass/Vol] 7.2 g/dL Low 11.3-15.[address] [facility] Comment on above: Result Comment: RIGO barrientos pt received 1 unit on 08/06/21 Performed By: #### 2 419569, 3772519363, 8544040, [id number] ####[facility] (DEFAULT)[address] [place] [address] Instr WBC 5.4 x10 Invalid Interpretation Code [facility] Comment on above: Performed By: #### 2 [id number], [id number], [id number], [id number] ####[facility] (DEFAULT)[address] [place] [id number] Man Diff? Auto Normal [facility] Comment on above: Performed By: #### 2 [id number], [id number], [id number], [id number] ####[facility] (DEFAULT)[address] [place] [id number] MCH (RBC) [Entitic mass] 28 pg Normal 24-[address] [facility] Comment on above: Performed By: #### 2 [id number], [id number], [id number], [id number] ####[facility] (DEFAULT)[address] [place] [address] MCHC (RBC) [Mass/Vol] 30 g/dL Normal 26-[address] [facility] Comment on above: Performed By: #### 2 [id number], [id number], [id number], [id number] ####[facility] (DEFAULT)[address] [place] [address] MCV (RBC) [Entitic vol] 94 fL Normal 81-100 [facility] Comment on above: Performed By: #### 2 454879, [id number], 8811471, 16904477 ####[facility] (DEFAULT)[address] [place] [address] 43967 Platelet 336 x10 Normal 138-[address] [facility] Comment on above: Performed By: #### 2 268939, 4299991365, 1106867, 34004511 ####[facility] (DEFAULT)[address] [place] [address] 32674 Platelet mean volume (Bld) [Entitic vol] 9.5 fL Normal 6.3-10.[address] [facility] Comment on above: Performed By: #### 2 058623, [id number], 0084615, 00143715 ####[facility] (DEFAULT)[address] [place] [address] 42235 RBC 2.57 x10 Low 3.70-5.[address] [facility] Comment on above: Performed By: #### 2 649912, [id number], 1693479, 59230725 ####[facility] (DEFAULT)[address] [place] [address] WBC 5.4 x10 Normal 3.5-10.[address] [facility] Comment on above: Performed By: #### 2 029552, [id number], 6648803, 73463326 ####[facility] (DEFAULT)[address] [place] [address] 57461 Cortisol LCon 08-09-2021 Cortisol LC 15.5 ug/dL Invalid Interpretation Code [facility] Comment on above: Result Comment: [place] isol AM 6.2 - 19.4 Cortisol PM 2.3 - 11.9 Performed At: [facility] [address] [id number] Brenna Iyer PhD Ph:[phone] Performed By: #### 7 995864, 99303253, 8321804, [id number] #### [facility] (DEFAULT) [address] [place] [address] Lab - AP Resultson 2 Lab - AP Results [id number]#1.00OTGTIFF Normal [facility] Magnesiumon 08-09-2021 Magnesium [Mass/Vol] 1.56 mg/dL Low 1.80-2.[address] [facility] Comment on above: Performed By: #### 2 733465, 8131911095, 7130331, 22415038 ####[facility] (DEFAULT)[address] [place] [address] Telemetry Stripson 2 Telemetry Strips [id number]#1.00OTGTIFF Normal [facility] .Auto Diff 1on 08-08-2021 Auto [place] % 8 % Normal -[address] [facility] Comment on above: Performed By: #### 7 294389, 26275853, 6529954, [id number] #### [facility] (DEFAULT) [address] [place] [address] Baso Abs# 0.0 x10 Normal 0.0-0.[address] [facility] Comment on above: Performed By: #### 7 808770, 79463551, 4356539, 6550987406 #### [facility] (DEFAULT) [address] [place] [address] 86032 Basophils/100 WBC (Bld) 0.8 % Normal 0.2-2.[address] [facility] Comment on above: Performed By: #### 7 579673, 04790179, 6109077, [id number] #### [facility] (DEFAULT) [address] [place] [address] Eos Abs# 0.2 x10 Normal 0.0-0.[address] [facility] Comment on above: Performed By: #### 7 718399, 47244794, 2676286, 3624738210 #### [facility] (DEFAULT) [address] [place] [address] Eosinophils/100 WBC (Bld) 2.6 % Normal 0.9-4.[address] [facility] Comment on above: Performed By: #### 7 021678, 37307612, 4210577, 2485616970 #### [facility] (DEFAULT) [address] [place] [address] Lymph Abs# 1.8 x10 Normal 1.3-2.[address] [facility] Comment on above: Performed By: #### 7 318980, 01118177, 9535886, 3541560513 #### [facility] (DEFAULT) [address] [place] [address] 75907 Lymphocytes/100 WBC (Bld) 27 % Normal 14-[address] [facility] Comment on above: Performed By: #### 7 067394, 22220761, 1583315, 7501981339 #### [facility] (DEFAULT) [address] [place] [address] [place] Abs# 0.5 x10 Normal 0.0-0.[address] [facility] Comment on above: Performed By: #### 7 447046, 48693046, 9870774, [id number] #### [facility] (DEFAULT) [address] [place] [address] Neut Abs# 4.0 x10 Normal 1.5-9.[address] [facility] Comment on above: Performed By: #### 7 245864, 88634165, 7551196, 7723592406 #### [facility] (DEFAULT) [address] [place] [address] Neutrophils/100 WBC (Bld) 62 % Normal 44-[address] [facility] Comment on above: Performed By: #### 7 164497, 46138302, 0525214, 9952337610 #### [facility] (DEFAULT) [address] [place] [address] Ambulance Noteon 08-08-2021 Ambulance Note [id number]#1.00OTGTIFF Normal [facility] BMP Standardon 08-08-2021 eGFR Non AA >60 Invalid Interpretation Code [facility] Comment on above: Performed By: #### 7 215823, 40391104, 2255821, [id number] #### [facility] (DEFAULT) [address] [place] [address] eGFR AA >60 Invalid Interpretation Code [facility] Comment on above: Result Comment: Commissioning Manager juanito Kidney disease could be indicated at eGFRs of less than 60 ml/min/1.73m2. Kidney Failure is indicated at less than 15 ml/min/1.73m2 Performed By: #### 7 151809, 09904208, 7247930, 4238107503 #### [facility] (DEFAULT) [address] [place] [address] 76560 Anion gap [Moles/Vol] 15.0 mmol/L Normal 5.0-19.[address] [facility] Comment on above: Performed By: #### 7 158832, 45526131, 6028722, 2132614098 #### [facility] (DEFAULT) [address] [place] [address] Calcium [Mass/Vol] 5.9 mg/dL Critically abnormal 8.9-10.[address] [facility] Comment on above: Result Comment: Crit ical CALC 5.9 result called and read back ok to: DEMETRA DAS RN 2S at: 05:25:23 08/08/2021 by: SYBIL Performed By: #### 7 684625, 99583952, 6326263, [id number] #### [facility] (DEFAULT) [address] [place] [address] 90145 Chloride [Moles/Vol] 109 mmol/L Normal 101-[address] [facility] Comment on above: Performed By: #### 7 289673, 05139401, 9818417, 6849198724 #### [facility] (DEFAULT) [address] [place] [address] 25293 CO2 [Moles/Vol] 20 mmol/L Low 21-[address] [facility] Comment on above: Performed By: #### 7 749844, 09049152, 8603838, 8243888772 #### [facility] (DEFAULT) [address] [place] [address] 05730 Creatinine [Mass/Vol] 0.68 mg/dL Normal 0.60-1.[address] [facility] Comment on above: Performed By: #### 7 358980, 16899967, 8548022, 2777408965 #### [facility] (DEFAULT) [address] [place] [address] 47823 Glucose [Mass/Vol] 82.0 mg/dL Normal 74.0-118.0 [facility] Comment on above: Performed By: #### 7 736040, 42814628, 8784806, 5332660055 #### [facility] (DEFAULT) [address] [place] [address] 76313 Osmolality 277 mOsm/L Invalid Interpretation Code [facility] Comment on above: Performed By: #### 7 650630, 26456384, 4042829, [id number] #### [facility] (DEFAULT) [address] [place] [address] 82988 Potassium [Moles/Vol] 3.6 mmol/L Normal 3.6-5.[address] [facility] Comment on above: Performed By: #### 7 700915, 12600326, 4967965, 5368616958 #### [facility] (DEFAULT) [address] [place] [address] 14682 Sodium [Moles/Vol] 140.0 mmol/L Normal 136.0-144.0 [facility] Comment on above: Performed By: #### 7 373924, 86523542, 7538423, 1483945244 #### [facility] (DEFAULT) [address] [place] [address] 11165 Urea nitrogen [Mass/Vol] 9 mg/dL Normal 8-[address] [facility] Comment on above: Performed By: #### 7 037679, 01529309, 6565695, 6421832816 #### [facility] (DEFAULT) [address] [place] [address] Urea nitrogen/Creatinin e [Mass ratio] 13.0 mg/mg Normal 4.6-16.[address] [facility] Comment on above: Performed By: #### 7 949404, 25255039, 5686843, 3890525537 #### [facility] (DEFAULT) [address] [place] [address] CBC w/ Auto Diffon 2 Erythrocyte distribution width (RBC) [Ratio] 18.4 % High 11.5-15.[address] [facility] Comment on above: Performed By: #### 1 021579463, 1414927, 23674891, 6245477 #### [facility] (DEFAULT) [address] [place] [address] Hematocrit (Bld) [Volume fraction] 31.6 % Low 33.7-40.[address] [facility] Comment on above: Performed By: #### 1 464790123, 2901866, 40288101, 2308234 #### [facility] (DEFAULT) [address] [place] [address] 89376 Hemoglobin (Bld) [Mass/Vol] 9.6 g/dL Low 11.3-15.[address] [facility] Comment on above: Performed By: #### 1 907218262, 1414943, 69171245, 4733095 #### [facility] (DEFAULT) [address] [place] [address] Instr WBC 6.5 x10 Invalid Interpretation Code [facility] Comment on above: Performed By: #### 1 [id number], 6044617, 50407866, 3864644 #### [facility] (DEFAULT) [address] [place] [address] Man Diff? Auto Normal [facility] Comment on above: Performed By: #### 1 933077714, 1167846, 01740691, 2796964 #### [facility] (DEFAULT) [address] [place] [address] 72467 MCH (RBC) [Entitic mass] 28 pg Normal 24-[address] [facility] Comment on above: Performed By: #### 1 984219476, 5907339, 19118170, 1647282 #### [facility] (DEFAULT) [address] [place] [address] 77037 MCHC (RBC) [Mass/Vol] 30 g/dL Normal 26-[address] [facility] Comment on above: Performed By: #### 1 368463947, 4192540, 29978573, 3551791 #### [facility] (DEFAULT) [address] [place] [address] MCV (RBC) [Entitic vol] 92 fL Normal 81-[address] [facility] Comment on above: Performed By: #### 1 197419122, 7111725, 26587095, 5405985 #### [facility] (DEFAULT) [address] [place] [address] Platelet 450 x10 High 138-[address] [facility] Comment on above: Performed By: #### 1 122497229, 8544648, 80748151, 3745996 #### [facility] (DEFAULT) [address] [place] [address] Platelet mean volume (Bld) [Entitic vol] 9.4 fL Normal 6.3-10.[address] [facility] Comment on above: Performed By: #### 1 090659755, 9497135, 16731050, 2462254 #### [facility] (DEFAULT) [address] [place] [address] RBC 3.45 x10 Low 3.70-5.[address] [facility] Comment on above: Performed By: #### 1 382950928, 6686968, 33697397, 4869163 #### [facility] (DEFAULT) [address] [place] [address] 80381 WBC 6.5 x10 Normal 3.5-10.[address] [facility] Comment on above: Performed By: #### 1 267121330, 9859853, 24832875, 8579037 #### [facility] (DEFAULT) [address] [place] [address] 84142 CRPon 08-08-2021 CRP 0.6 mg/dL High <=0.[address] [facility] Comment on above: Performed By: #### 7 668278, 82365691, 1172399, 6029554417 #### [facility] (DEFAULT) [address] [place] [address] 45563 Haptoglobin LCon 08-08-2021 Haptoglobin LC 162 mg/dL Invalid Interpretation Code 23-[address] [facility] Comment on above: Result Comment: Perf ormed At: [facility] [address] [id number] Brenna Iyer PhD Ph:[phone] Performed By: #### 1 882006682, 4754319, 69756667, 6112309 #### [facility] (DEFAULT) [address] [place] [address] 34306 Magnesiumon 08-08-2021 Magnesium [Mass/Vol] 1.47 mg/dL Low 1.80-2.[address] [facility] Comment on above: Performed By: #### 7 632897, 75962972, 5514393, 2971453810 #### [facility] (DEFAULT) [address] [place] [address] 55388 Nutrition Noteon 08-08-2021 SARS-CoV-2 (COVID-19) RNA JESSICA+probe [...] Ensure Compact BIDWM and monitor acceptance. Normal [facility] Telemetry Stripson 2 Telemetry Strips [id number]#1.00OTGTIFF Normal [facility] .Auto Diff 108-07-2021 Auto [place] % 8 % Normal 07-[address] [facility] Comment on above: Performed By: #### 1 112328631, 2606159, 40312315, 5974434 #### [facility] (DEFAULT) [address] [place] [address] 10033 Baso Abs# 0.0 x10 Normal 0.0-0.[address] [facility] Comment on above: Performed By: #### 1 842368748, 8267854, 31612313, 8252351 #### [facility] (DEFAULT) [address] [place] [address] 57369 Basophils/100 WBC (Bld) 0.6 % Normal 0.2-2.[address] [facility] Comment on above: Performed By: #### 1 253661443, 9331752, 87431486, 5697451 #### [facility] (DEFAULT) [address] [place] [address] 47061 Eos Abs# 0.1 x10 Normal 0.0-0.[address] [facility] Comment on above: Performed By: #### 1 500666014, 7147598, 45461916, 5190816 #### [facility] (DEFAULT) [address] [place] [address] 80267 Eosinophils/100 WBC (Bld) 1.3 % Normal 0.9-4.[address] [facility] Comment on above: Performed By: #### 1 832161273, 1789198, 52006431, 6347156 #### [facility] (DEFAULT) [address] [place] [address] 02109 Lymph Abs# 1.6 x10 Normal 1.3-2.[address] [facility] Comment on above: Performed By: #### 1 830240163, 0118346, 90601447, 8143726 #### [facility] (DEFAULT) [address] [place] [address] Lymphocytes/100 WBC (Bld) 24 % Normal 14-[address] [facility] Comment on above: Performed By: #### 1 981459813, 4658885, 36844888, 8299704 #### [facility] (DEFAULT) [address] [place] [address] [place] Abs# 0.6 x10 Normal 0.0-0.[address] [facility] Comment on above: Performed By: #### 1 157873197, 5710447, 18026013, 8210896 #### [facility] (DEFAULT) [address] [place] [address] Neut Abs# 4.4 x10 Normal 1.5-9.[address] [facility] Comment on above: Performed By: #### 1 273718140, 7554134, 82544684, 0350951 #### [facility] (DEFAULT) [address] [place] [address] Neutrophils/100 WBC (Bld) 65 % Normal 44-[address] [facility] Comment on above: Performed By: #### 1 536235889, 3451999, 50055260, 1476589 #### [facility] (DEFAULT) [address] [place] [address] CBC w/ Auto Diffon 2 Erythrocyte distribution width (RBC) [Ratio] 18.4 % High 11.5-15.[address] [facility] Comment on above: Performed By: #### 1 225241684, 3265297, 56551491, 3705720 #### [facility] (DEFAULT) [address] [place] [address] Hematocrit (Bld) [Volume fraction] 33.1 % Low 33.7-40.[address] [facility] Comment on above: Performed By: #### 1 709861622, 0321635, 32890925, 0135926 #### [facility] (DEFAULT) [address] [place] [address] 29729 Hemoglobin (Bld) [Mass/Vol] 9.9 g/dL Low 11.3-15.[address] [facility] Comment on above: Result Comment: Charo ent received 1 unit of PRBC's on 08/06/21 Performed By: #### 1 698304130, 3561774, 87888460, 6317367 #### [facility] (DEFAULT) [address] [place] [address] 33154 Instr WBC 6.7 x10 Invalid Interpretation Code [facility] Comment on above: Performed By: #### 1 098550265, 8255014, 82834268, 3470685 #### [facility] (DEFAULT) [address] [place] [address] 66371 Man Diff? Auto Normal [facility] Comment on above: Performed By: #### 1 320547731, 0552445, 73414183, 1598215 #### [facility] (DEFAULT) [address] [place] [address] 63222 MCH (RBC) [Entitic mass] 28 pg Normal 24-[address] [facility] Comment on above: Performed By: #### 1 105292704, 7900167, 47225138, 0411795 #### [facility] (DEFAULT) [address] [place] [address] 96843 MCHC (RBC) [Mass/Vol] 30 g/dL Normal 26-[address] [facility] Comment on above: Performed By: #### 1 738945015, 7446891, 40186903, 3928244 #### [facility] (DEFAULT) [address] [place] [address] 12286 MCV (RBC) [Entitic vol] 92 fL Normal 81-[address] [facility] Comment on above: Performed By: #### 1 580207627, 4579287, 26486003, 9532799 #### [facility] (DEFAULT) [address] [place] [address] 72887 Platelet 515 x10 High 138-[address] [facility] Comment on above: Performed By: #### 1 474794838, 1642051, 86986287, 4381233 #### [facility] (DEFAULT) [address] [place] [address] 42154 Platelet mean volume (Bld) [Entitic vol] 9.0 fL Normal 6.3-10.[address] [facility] Comment on above: Performed By: #### 1 329534013, 0069005, 90173369, 2911730 #### [facility] (DEFAULT) [address] [place] [address] 77730 RBC 3.60 x10 Low 3.70-5.[address] [facility] Comment on above: Performed By: #### 1 796907679, 0951378, 62079738, 8187968 #### [facility] (DEFAULT) [address] [place] [address] 21382 WBC 6.7 x10 Normal 3.5-10.[address] [facility] Comment on above: Performed By: #### 1 881776780, 0262307, 78558495, 4660301 #### [facility] (DEFAULT) [address] [place] [address] 21420 CMP Standardon 08-07-2021 Albumin [Mass/Vol] 1.6 g/dL Low 3.5-5.0 [facility] Comment on above: Order Comment: I had [...] blood work. CJ Performed By: #### 1 036025411, 7897666, 36424937, 2174357 #### [facility] (DEFAULT) [address] [place] [address] 55118 Albumin/Globulin [Mass ratio] 0.7 {ratio} Low 1.4-2.[address] [facility] Comment on above: Order Comment: I [...] blood work. CJ Performed By: #### 1 578690726, 7768051, 78690513, 3198921 #### [facility] (DEFAULT) [address] [place] [address] 60269 Alk Phos 48 IU/L Normal 32-[address] [facility] Comment on above: Order Comment: I [...] blood work. CJ Performed By: #### 1 849751212, 1455431, 90778287, 6739225 #### [facility] (DEFAULT) [address] [place] [address] 84498 ALT [Catalytic activity/Vol] 21.0 U/L Normal 14.0-54.[address] [facility] Comment on above: Order Comment: I [...] blood work. CJ Performed By: #### 1 996009802, 4516915, 15331209, 6673015 #### [facility] (DEFAULT) [address] [place] [address] 82749 Anion gap [Moles/Vol] 14.0 mmol/L Normal 5.0-19.[address] [facility] Comment on above: Order Comment: I [...] blood work. CJ Performed By: #### 1 329484192, 4586615, 95519716, 9999070 #### [facility] (DEFAULT) [address] [place] [address] 24772 AST [Catalytic activity/Vol] 26 U/L Normal 15-[address] [facility] Comment on above: Order Comment: I [...] blood work. CJ Performed By: #### 1 168079787, 3814031, 10279310, 5506705 #### [facility] (DEFAULT) [address] [place] [address] 75052 Bili Total 0.2 mg/dL Low 0.3-1.[address] [facility] Comment on above: Order Comment: I [...] blood work. CJ Performed By: #### 1 124871102, 7404903, 54459183, 8635445 #### [facility] (DEFAULT) [address] [place] [address] 07758 Calcium [Mass/Vol] 5.9 mg/dL Critically abnormal 8.9-10.[address] [facility] Comment on above: Order Comment: I [...] 2am blood work. CJ Result Comment: Fransico tomlinson Called To Shiloh OBRIEN 2S By [facility] And Read Back For Confirmation On 08/07/2021 09:25:59 EST. Performed By: #### 1 609311497, 0488472, 27548713, 1406524 #### [facility] (DEFAULT) [address] [place] [address] 57997 Chloride [Moles/Vol] 108 mmol/L Normal 101-[address] [facility] Comment on above: Order Comment: I [...] blood work. CJ Performed By: #### 1 833868579, 2227098, 89529173, 3858156 #### [facility] (DEFAULT) [address] [place] [address] 98726 CO2 [Moles/Vol] 21 mmol/L Normal 21-[address] [facility] Comment on above: Order Comment: I [...] blood work. CJ Performed By: #### 1 671655228, 4814636, 64800915, 9493075 #### [facility] (DEFAULT) [address] [place] [address] 70763 Creatinine [Mass/Vol] 0.61 mg/dL Normal 0.60-1.[address] [facility] Comment on above: Order Comment: I [...] blood work. CJ Performed By: #### 1 329741739, 8899537, 75787190, 5242090 #### [facility] (DEFAULT) [address] [place] [address] 22336 Globulin (S) [Mass/Vol] 2.3 g/dL Normal 1.5-4.[address] [facility] Comment on above: Order Comment: I [...] blood work. CJ Performed By: #### 1 853282223, 2933911, 39029335, 0561112 #### [facility] (DEFAULT) [address] [place] [address] 73741 Glucose [Mass/Vol] 79.0 mg/dL Normal 74.0-118.0 [facility] Comment on above: Order Comment: I had [...] blood work. CJ Performed By: #### 1 287643720, 6420244, 89159848, 0320353 #### [facility] (DEFAULT) [address] [place] [address] 31314 Osmolality 277 mOsm/L Invalid Interpretation Code [facility] Comment on above: Order Comment: I [...] blood work. CJ Performed By: #### 1 995801440, 0939728, 73733253, 9145459 #### [facility] (DEFAULT) [address] [place] [address] 32581 Potassium [Moles/Vol] 3.2 mmol/L Low 3.6-5.[address] [facility] Comment on above: Order Comment: I [...] IV T herapy Performed By: #### 1 944432578, 9198837, 46692885, 6236880 #### [facility] (DEFAULT) [address] [place] [address] 74877 Protein [Mass/Vol] 3.9 g/dL Low 6.5-8.1 [facility] Comment on above: Order Comment: I had [...] blood work. CJ Performed By: #### 1 127417639, 5098607, 51247112, 4788162 #### [facility] (DEFAULT) [address] [place] [address] 08508 Sodium [Moles/Vol] 140.0 mmol/L Normal 136.0-144.0 [facility] Comment on above: Order Comment: [...] blood work. CJ Performed By: #### 1 858125008, 6843655, 05121851, 2173396 #### [facility] (DEFAULT) [address] [place] [address] 82200 Urea nitrogen [Mass/Vol] 8 mg/dL Normal 8-[address] [facility] Comment on above: Order Comment: I [...] blood work. CJ Performed By: #### 1 [id number], 8465049, 57071627, 4111118 #### [facility] (DEFAULT) [address] [place] [address] Urea nitrogen/Creatinin e [Mass ratio] 13.0 mg/mg Normal 4.6-16.[address] [facility] Comment on above: Order Comment: I [...] blood work. CJ Performed By: #### 1 591473977, 1551563, 52131999, 5386875 #### [facility] (DEFAULT) [address] [place] [address] 26162 eGFR Non AA >60 Invalid Interpretation Code [facility] Comment on above: Order Comment: I [...] blood work. CJ Performed By: #### 1 747055155, 0543869, 69881387, 4667515 #### [facility] (DEFAULT) [address] [place] [address] 50404 eGFR AA >60 Invalid Interpretation Code [facility] Comment on above: Order Comment: I [...] ALL 2am blood work. CJ Result Comment: Commissioning Manager juanito Kidney disease could be indicated at eGFRs of less than 60 ml/min/1.73m2. Kidney Failure is indicated at less than 15 ml/min/1.73m2 Performed By: #### 1 [id number] #### [facility] (DEFAULT) [address] [place] [address]167 Consent Formson 08-07-2021 Consent Forms [id number] Normal [facility] ED Clinical Summaryon 2021 ED Clinical Summary [facility] - Emergency Department [address] [place], [place] [id number] ED Clinical Summary PERSON INFORMATION Name: ASHVIN RENE Age: 65 Years Sex: FEMALE : 1955 MRN: Acct#: Visit Reason: General medical; ANEMIA, ELEVATED TROPONIN Arrival: 08/06/2021 17:10:50 Discharge: LOS: 000 05:17 Check In: 08/06/2021 17:10:50 Checkout:08/06/2021 22:27:57 Address: [address] [place] [address] PCP: TUSHAR SOLANO JR. PROVIDER INFORMATION Provider Role Assigned Unassigned Danni Souza ED PA 08/06/2021 17:12:50 08/06/2021 17:16:23 EVERTON NEGRON ED PA 08/06/2021 17:18:50 Jessica Al DIRECTOR OF [employer]ATE[employer]IC MARKETING Nurse 08/06/2021 17:45:27 08/06/2021 19:14:08 Gely Adan DIRECTOR OF [employer] MARK[employer]ING Nurse 08/06/2021 19:14:09 VITALS INFORMATION Vital Sign [...] female presenting to the emergency department from [facility] for evaluation of low blood pressure possibility [...] not currently on diuretics secondary to her collector stating that she should not take these. [...] -Pharynx is pink and dry NECK: -Supple ([id number]-vj-glrjt): non-tender. CARD: -Rate and rhythm: Regular -Edema: [...] was performed with patient's consent and nurse warehouse material handler Jessica in the room the entire time -External rectal exam reveals no abnormalities -Digital rectal exam reveals no masses or polyps within reach of my finger, stool guaiac is positive Medical Decision Making 55-year-old female presenting to the emergency department for evaluation of low blood pressure taken manually at detention facility of 90/45 and possibility of looking mildly jaundiced. I discussed this with (more content not included)... Normal [facility] ED Patient Education Noteon 08-07-2021 ED Patient Education Note Education Materials [facility] ED Patient Summaryon 022 ED Patient Summary [facility] - Emergency Department [address] [place] [address] PATIENT DISCHARGE INSTRUCTIONS Patient Information Name: ASHVIN RENE Age: 65 Years Date of : 1955 Reason For Visit: General medical; ANEMIA, ELEVATED TROPONIN Arrival Time: 08/06/2021 17:10:50 Primary Care Physician: TUSHAR SOLANO JR. Attending Physician: Waqas Castro MD Comment: Visit Diagnosis: Diagnoses This Visit Anemia (D64.9) General medical ([id number]) GI bleed (K92.2) Peripheral edema (R60.9) Prescription Information: If you have been given a prescription for narcotics, seek immediate medical attention if you have any difficulty breathing or any sudden status changes such as confusion and sleepiness. If you or anyone you know is experiencing suicidal thoughts, mental health, alcohol and/or drug addiction problems; contact the [facility] 03/02 Crisis Hotline -Text 4HOPE to 057447. If you received any narcotics, sedation, or [...] and treatment you received today in the [facility] Emergency Department were for an urgent problem and are not intended as complete care. It is important for you to follow up with a doctor, nurse practitioner, or physician?s assistant mechanic for ongoing care. If your symptoms become [...] so we can reach you if necessary. [facility] Emergency Department has provided you with a complete list of medications post discharge. Please inform your brake mechanic/provider of your visit and for further instruction [...] mg oral tablet) potassium chloride (Potassium Chloride (Nnp-Kmfy-Mtl 10) 10 mEq oral tablet, extended release) [...] Weight Dosin. (more content not included)... Normal [facility] Ferritinon 08-07-2021 Ferritin [Mass/Vol] 14.2 ng/mL Normal 12.0-150.[address] [facility] Comment on above: Performed By: #### 1 [id number], 4479082, 74527179, [id number] #### [facility] (DEFAULT) [address] [place] [address] 19582 Folateon 08-07-2021 Folic Acid Level 6.62 ng/mL Normal 5.90-24.[address] [facility] Comment on above: Result Comment: Norm al folate results > 3.0 ng/mL. Performed By: #### 1 [id number], 0475619, 83601734, 6665757 #### [facility] (DEFAULT) [address] [place] [address] 01484 Free T4on 08-07-2021 Free T4 [Mass/Vol] 1.30 ng/dL High 0.61-1.12 [facility] Comment on above: Result Comment: Spec imens that contain high levels of Biotin may cause false high results Performed By: #### 1 [id number], 1841668, 03085020, 6021781 #### [facility] (DEFAULT) [address] [place] [address] 23876 Iron Profileon 08-07-2021 Iron [Mass/Vol] 24.0 ug/dL Low 28.0-170.[address] [facility] Comment on above: Performed By: #### 1 [id number], 0853280, 61665839, 6941351 #### [facility] (DEFAULT) [address] [place] [address] 18657 Iron Sat 15 % Low 20-[address] [facility] Comment on above: Performed By: #### 1 [id number], 2652200, 58969541, 2650777 #### [facility] (DEFAULT) [address] [place] [address] 35235 TIBC 158 mcg/dL Low 250-[address] [facility] Comment on above: Performed By: #### 1 [id number], 7701895, 71786652, 1341698 #### [facility] (DEFAULT) [address] [place] [address] 85168 Transferrin [Mass/Vol] 113.1 mg/dL Low 192.0-382.[address] [facility] Comment on above: Performed By: #### 1 [id number], 7670664, 84471322, 9334848 #### [facility] (DEFAULT) [address] [place] [address] LDHon 08-07-2021 LDH 299.0 IU/L High 98.0-192.[address] [facility] Comment on above: Performed By: #### 1 [id number], 5412030, 11058738, 1014056 #### [facility] (DEFAULT) [address] [place] [address] Magnesiumon 08-07-2021 Magnesium [Mass/Vol] 0.98 mg/dL Low 1.80-2.[address] [facility] Comment on above: Performed By: #### 1 [id number], 6116625, 48203865, 9152738 #### [facility] (DEFAULT) [address] [place] [address] Occult Blood, Fecalon 2021 Internal QC OK? Pass Normal [facility] Comment on above: Performed By: #### 1 [id number], 1316778, 93413593, 5565799 #### [facility] (DEFAULT) [address] [place] [address] Occult Bld Stl Positive Abnormal Negative [facility] Comment on above: Performed By: #### 1 [id number], 0775297, 30610421, 4283484 #### [facility] (DEFAULT) [address] [place] [address] Path Reviewon 08-07-2021 Pathology Test See Report Normal [facility] Comment on above: Result Comment: Sepa rate report to follow. [place] [facility] [place] Performed By: #### 1 [id number], 4759811, 74859962, 0975151 #### [facility] (DEFAULT) [address] [place] [address] Retic Counton 08-07-2021 Reticulocyte 2.8 % High 0.5-1.[address] [facility] Comment on above: Performed By: #### 1 [id number], 8057659, 71163865, 6603131 #### [facility] (DEFAULT) [address] [place] [address] 57801 TSH w/ Reflex to FT4on 08-07 TSH Qn 16.54 m[IU]/L High 0.45-5.[address] [facility] Comment on above: Result Comment: Gene ral Population (males and non- females, aged 21-88) 0.45 - 5.33 Females, 1st Trimester 0.05 - 3.70 Females, 2nd Trimester 0.31 - 4.35 Females, 3rd Trimester 0.41 - 5.18 Performed By: #### 1 [id number], 8278420, 58113863, 1588040 #### [facility] (DEFAULT) [address] [place], [place] [address] Telemetry Stripson 2 Telemetry Strips [id number] Normal [facility] TnI HSon 08-07-2021 Troponin I High Sensitivity 16 pg/mL Critically abnormal <=[address] [facility] Comment on above: Result Comment: Elev ated hsTnI 16 result called and read back ok to: SHILOH OBRIEN 2S at: 09:07:23 08/07/2021 by: TAPAN Male Baseline Delta 1Hr (Note pg/mL=ng/L) <20pg/mL 50-60% >20pg/mL 20% Female Baseline Delta 1Hr <15pg/mL 50-60% >15pg/mL 20% Other Baseline Delta 1Hr <18ng/mL 50-60% >18ng/mL 20% ([place] [employer] Guidelines February 2018) Performed By: #### 1 [id number], 4784891, 44615738, 2991110 #### [facility] (DEFAULT) [address] [place] [address] 94197 Troponin I High Sensitivity 19 pg/mL Critically abnormal <=[address] [facility] Comment on above: Result Comment: Elev ated hsTnI 19 result called and read back ok to: DEMETRA DAS RN 2S at: 02:25:36 08/07/2021 by: SYBIL Male Baseline Delta 1Hr (Note pg/mL=ng/L) <20pg/mL 50-60% >20pg/mL 20% Female Baseline Delta 1Hr <15pg/mL 50-60% >15pg/mL 20% Other Baseline Delta 1Hr <18ng/mL 50-60% >18ng/mL 20% ([place] [employer] Guidelines February 2018) Performed By: #### 7 234176, 28626461, 2821993, [id number] #### [facility] (DEFAULT) [address] [place] [address] US Echocardiogram Completeon 08-07-2021 US Echocardiogram Complete [...] tricuspid regurgitation. Tim Harrington MD JOB #: [id number] bk Final Dictated by: Tim Harrington MD Dictated DT/TM: 08/08/21 8:50 Signed (Electronic Signature): Tim Harrington MD 08/09/21 8:[address] [facility] Vit B12 Lvlon 08-07-2021 Vit B12 853 Normal 180-[address] [facility] Comment on above: Performed By: #### 1 [id number], 6132082, 14859302, 1323762 #### [facility] (DEFAULT) [address] [place] [address] 95954 .Auto Diff 1on - Auto [place] % 7 % Normal 1-[address] [facility] Comment on above: Performed By: #### 7 748088, 40344410, 6562238, 1169631475 #### [facility] (DEFAULT) [address] [place], [place] [address] Baso Abs# 0.0 x10 Normal 0.0-0.[address] [facility] Comment on above: Performed By: #### 7 988115, 85233909, 1202108, [id number] #### [facility] (DEFAULT) [address] [place] [address] Basophils/100 WBC (Bld) 0.5 % Normal 0.2-2.[address] [facility] Comment on above: Performed By: #### 7 136076, 17106987, 3040008, 0213057950 #### [facility] (DEFAULT) [address] [place] [address] 04986 Eos Abs# 0.0 x10 Normal 0.0-0.[address] [facility] Comment on above: Performed By: #### 7 904157, 71338577, 6296985, 9648806260 #### [facility] (DEFAULT) [address] [place] [address] 67241 Eosinophils/100 WBC (Bld) 0.7 % Low 0.9-4.[address] [facility] Comment on above: Performed By: #### 7 910135, 88031056, 2070349, 3546972633 #### [facility] (DEFAULT) [address] [place] [address] 94539 Lymph Abs# 1.2 x10 Low 1.3-2.[address] [facility] Comment on above: Performed By: #### 7 859419, 35649689, 4424053, 7971147269 #### [facility] (DEFAULT) [address] [place] [address] 52496 Lymphocytes/100 WBC (Bld) 16 % Normal 14-[address] [facility] Comment on above: Performed By: #### 7 913242, 04232869, 8726133, 8501598476 #### [facility] (DEFAULT) [address] [place] [address] [place] Abs# 0.5 x10 Normal 0.0-0.[address] [facility] Comment on above: Performed By: #### 7 472357, 57565018, 0307368, 1467947563 #### [facility] (DEFAULT) [address] [place] [address] Neut Abs# 5.7 x10 Normal 1.5-9.[address] [facility] Comment on above: Performed By: #### 7 659690, 12414218, 8705944, 9212973935 #### [facility] (DEFAULT) [address] [place] [address] Neutrophils/100 WBC (Bld) 76 % Normal 44-[address] [facility] Comment on above: Performed By: #### 7 980091, 90347729, 4430094, 0585858262 #### [facility] (DEFAULT) [address] [place] [address] ABORhon 08-06-2021 ABO and Rh group Nom (Bld) Hx Check: Not Found Anti-A: 0 Anti-B: 0 Anti-D: 4+ DCon: 0 A1: 4+ B: 4+ ABORh Interp: O POS Invalid Interpretation Code [facility] Comment on above: Performed By: #### 7 458217, 48024892, 2243281, [id number] #### [facility] (DEFAULT) [address] [place] [address] ABORh Retypeon 08-06-2021 ABO and Rh group Nom (Bld) Ordered by Discern. Anti-A: 0 Anti-B: 0 Anti-D: 4+ DCon: 0 A1: 3+ B: 3+ ABORh Retype: O POS Invalid Interpretation Code [facility] Comment on above: Performed By: #### 7 808229, 90612146, 6375771, [id number] #### [facility] (DEFAULT) [address] [place] [address] ABSC Gelon 08-06-2021 ABSC Gel Negative Normal [facility] Comment on above: Performed By: #### 7 136669, 51779708, 4855039, [id number] #### [facility] (DEFAULT) [address] [place] [address] BNP.on 08-06-2021 Natriuretic peptide B (Bld) [Mass/Vol] 123.0 pg/mL High 0.0-100.[address] [facility] Comment on above: Result Comment: BNP results greater than 100 pg/mL are considered abnormal and suggestive of patients with CHF. Higher BNP concentrations measured in the first 72 hours after an acute coronary syndorme are associated with an increased risk of , myocardial infarction, and CHF. Performed By: #### 7 232376, 13536601, 1462632, [id number] #### [facility] (DEFAULT) [address] [place] [address] Blood Bank IDon 08-06-2021 Blood Bank ID BBID: [id number] Invalid Interpretation Code [facility] Comment on above: Performed By: #### 7 916790, 98833543, 8655403, [id number] #### [facility] (DEFAULT) [address] [place] [address] CBC w/ Auto Diffon Erythrocyte distribution width (RBC) [Ratio] 19.4 % High 11.5-15.[address] [facility] Comment on above: Performed By: #### 7 387611, 70361139, 7949766, 4117937572 #### [facility] (DEFAULT) [address] [place] [address] Hematocrit (Bld) [Volume fraction] 24.7 % Low 33.7-40.[address] [facility] Comment on above: Performed By: #### 7 044105, 30156778, 3157044, [id number] #### [facility] (DEFAULT) [address] [place] [address] Hemoglobin (Bld) [Mass/Vol] 7.4 g/dL Low 11.3-15.[address] [facility] Comment on above: Performed By: #### 7 215887, 53670335, 6595924, 3307139560 #### [facility] (DEFAULT) [address] [place] [address] Instr WBC 7.5 x10 Invalid Interpretation Code [facility] Comment on above: Performed By: #### 7 361448, 32962210, 0229165, 1939183879 #### [facility] (DEFAULT) [address] [place] [address] 96622 Man Diff? RBC Morph Only Normal [facility] Comment on above: Performed By: #### 7 609055, 46129777, 6333653, [id number] #### [facility] (DEFAULT) [address] [place] [address] 61182 MCH (RBC) [Entitic mass] 28 pg Normal 24-[address] [facility] Comment on above: Performed By: #### 7 739791, 63587973, 9066425, [id number] #### [facility] (DEFAULT) [address] [place] [address] 92210 MCHC (RBC) [Mass/Vol] 30 g/dL Normal 26-[address] [facility] Comment on above: Performed By: #### 7 424194, 51990109, 7803089, 1306729472 #### [facility] (DEFAULT) [address] [place] [address] 57660 MCV (RBC) [Entitic vol] 92 fL Normal 81-[address] [facility] Comment on above: Performed By: #### 7 796242, 79336030, 9560036, 5882653813 #### [facility] (DEFAULT) [address] [place] [address] 36895 Platelet 533 x10 High 138-[address] [facility] Comment on above: Performed By: #### 7 101315, 67095330, 5011050, 4561113279 #### [facility] (DEFAULT) [address] [place] [address] 43164 Platelet mean volume (Bld) [Entitic vol] 8.8 fL Normal 6.3-10.[address] [facility] Comment on above: Performed By: #### 7 793440, 69011778, 5932717, 1840470364 #### [facility] (DEFAULT) [address] [place] [address] 49607 RBC 2.67 x10 Low 3.70-5.[address] [facility] Comment on above: Performed By: #### 7 354384, 69619769, 9829732, 6384175906 #### [facility] (DEFAULT) [address] [place] [address] 85925 WBC 7.5 x10 Normal 3.5-10.[address] [facility] Comment on above: Performed By: #### 7 068811, 66917016, 7866997, 8428981401 #### [facility] (DEFAULT) [address] [place] [address] 18899 CMP Standardon 08-06-2021 eGFR Non AA >60 Invalid Interpretation Code [facility] Comment on above: Performed By: #### 7 915502, 34512528, 1867105, [id number] #### [facility] (DEFAULT) [address] [place] [address] 97563 eGFR AA >60 Invalid Interpretation Code [facility] Comment on above: Result Comment: Commissioning Manager juanito Kidney disease could be indicated at eGFRs of less than 60 ml/min/1.73m2. Kidney Failure is indicated at less than 15 ml/min/1.73m2 Performed By: #### 7 014349, 77430357, 5326393, [id number] #### [facility] (DEFAULT) [address] [place] [address] 34015 Albumin [Mass/Vol] 1.6 g/dL Low 3.5-5.0 [facility] Comment on above: Performed By: #### 7 258964, 75148083, 6616763, 8559357810 #### [facility] (DEFAULT) [address] [place] [address] 02102 Albumin/Globulin [Mass ratio] 0.7 {ratio} Low 1.4-2.[address] [facility] Comment on above: Performed By: #### 7 615348, 63912150, 6048513, 0108735253 #### [facility] (DEFAULT) [address] [place] [address] 61381 Alk Phos 52 IU/L Normal 32-[address] [facility] Comment on above: Performed By: #### 7 636036, 86199377, 4886322, 0410641574 #### [facility] (DEFAULT) [address] [place] [address] 54940 ALT [Catalytic activity/Vol] 23.0 U/L Normal 14.0-54.[address] [facility] Comment on above: Performed By: #### 7 946908, 45596062, 9890954, 9845046992 #### [facility] (DEFAULT) [address] [place] [address] 26326 Anion gap [Moles/Vol] 14.0 mmol/L Normal 5.0-19.[address] [facility] Comment on above: Performed By: #### 7 247712, 83488344, 1854612, [id number] #### [facility] (DEFAULT) [address] [place] [address] 12210 AST [Catalytic activity/Vol] 27 U/L Normal 15-[address] [facility] Comment on above: Performed By: #### 7 613471, 82058078, 8025830, 3729193822 #### [facility] (DEFAULT) [address] [place] [address] 69021 Bili Total 0.4 mg/dL Normal 0.3-1.[address] [facility] Comment on above: Performed By: #### 7 087750, 71898131, 8673099, 8296380659 #### [facility] (DEFAULT) [address] [place] [address] 57924 Calcium [Mass/Vol] 6.1 mg/dL Low 8.9-10.3 [facility] Comment on above: Performed By: #### 7 315023, 23352044, 0554675, 6217936315 #### [facility] (DEFAULT) [address] [place] [address] 60601 Chloride [Moles/Vol] 108 mmol/L Normal 101-[address] [facility] Comment on above: Performed By: #### 7 040778, 60012464, 0995604, 5043926027 #### [facility] (DEFAULT) [address] [place] [address] 06164 CO2 [Moles/Vol] 21 mmol/L Normal 21-[address] [facility] Comment on above: Performed By: #### 7 534369, 42166953, 1711334, 1904573810 #### [facility] (DEFAULT) [address] [place] [address] 23524 Creatinine [Mass/Vol] 0.64 mg/dL Normal 0.60-1.[address] [facility] Comment on above: Performed By: #### 7 340700, 63740130, 3030898, 7806535207 #### [facility] (DEFAULT) [address] [place] [address] 21860 Globulin (S) [Mass/Vol] 2.4 g/dL Normal 1.5-4.[address] [facility] Comment on above: Performed By: #### 7 136076, 17980973, 3425169, 7171880061 #### [facility] (DEFAULT) [address] [place] [address] 75707 Glucose [Mass/Vol] 118.0 mg/dL Normal 74.0-118.0 [facility] Comment on above: Performed By: #### 7 833530, 40637355, 4517708, 8880082084 #### [facility] (DEFAULT) [address] [place] [address] 67322 Osmolality 277 mOsm/L Invalid Interpretation Code [facility] Comment on above: Performed By: #### 7 991516, 51036284, 0030547, [id number] #### [facility] (DEFAULT) [address] [place] [address] 01591 Potassium [Moles/Vol] 3.8 mmol/L Normal 3.6-5.[address] [facility] Comment on above: Performed By: #### 7 997538, 54211054, 1848427, 7463600283 #### [facility] (DEFAULT) [address] [place] [address] 20940 Protein [Mass/Vol] 4.0 g/dL Low 6.5-8.1 [facility] Comment on above: Performed By: #### 7 720938, 76853413, 9013741, 2552488340 #### [facility] (DEFAULT) [address] [place] [address] 77267 Sodium [Moles/Vol] 139.0 mmol/L Normal 136.0-144.0 [facility] Comment on above: Performed By: #### 7 844089, 51286381, 3798159, 3973240596 #### [facility] (DEFAULT) [address] [place] [address] 12746 Urea nitrogen [Mass/Vol] 9 mg/dL Normal 8-[address] [facility] Comment on above: Performed By: #### 7 807213, 94297870, 7695127, 2259438172 #### [facility] (DEFAULT) [address] [place] [address] 84994 Urea nitrogen/Creatinin e [Mass ratio] 14.0 mg/mg Normal 4.6-16.[address] [facility] Comment on above: Performed By: #### 7 944914, 88255832, 8581808, 2020724261 #### [facility] (DEFAULT) [address] [place] [address] 73324 ED Note - Physicianon 2021 ED Note - Physician Patient: ASHVIN RENE Age: 65 years Sex: FEMALE : 1955 Associated Diagnoses: General medical; Anemia; Peripheral edema; GI bleed Author: EVERTON NEGRON Basic Information Time seen: Date & time 08/06/2021 17:19:00. History source: Patient, EMS. Arrival mode: Ambulance. History of Present Illness Patient is a 65-year-old female presenting to the emergency department from [facility] for evaluation of low blood pressure possibility [...] not currently on diuretics secondary to her collector stating that she should not take these. [...] -Pharynx is pink and dry NECK: -Supple (vlry-ei-hzepa): non-tender. CARD: -Rate and rhythm: Regular -Edema: [...] was performed with patient's consent and nurse warehouse material handler Jessica in the room the entire time -External rectal exam reveals no abnormalities -Digital rectal exam reveals no masses or polyps within reach of my finger, stool guaiac is positive Medical Decision Making 55-year-old female presenting to the emergency department for evaluation of low blood pressure taken manually at detention facility of 90/45 and possibility of looking [...] at this time. According to paperwork from detention facility patient CODE STATUS is full code Results review: Lab results : Lab Flowsheet 08/06/2021 18:55 EST Troponin I High Sensitivity 21 pg/mL CRIT 08/06/2021 1 (more content not included)... Normal [facility] ED Note-Nursingon 08-06-2021 ED Note-Nursing patient did not want to come in. patient is from [facility], patient has a history of hypotension and she takes midodrine regularly. she also took zofran. nurse states arms and legs are weeping. nurse states skin is yellow. patient has c diff. nurse at [facility] did a wrist bloodpressure and it was 90/44, ems did a blood pressure and it was 144/90. patient states jail is not giving me my blood pressure meds Normal [facility] Extra Pinkon 08-06-2021 Tube Collected Yes Invalid Interpretation Code [facility] Comment on above: Performed By: #### 7 697252, 85697807, 9823752, [id number] #### [facility] (DEFAULT) [address] [place] [address] Lactic Acidon 08-06-2021 Lactic Acid 16.2 mg/dL Normal 4.5-19.[address] [facility] Comment on above: Performed By: #### 7 647043, 19001985, 0588160, [id number] #### [facility] (DEFAULT) [address] [place] [address] Lipaseon 08-06-2021 Lipase Level 20.0 IU/L Low 22.0-51.[address] [facility] Comment on above: Performed By: #### 7 974403, 39612379, 3511056, [id number] #### [facility] (DEFAULT) [address] [place] [address] Magnesiumon 08-06-2021 Magnesium [Mass/Vol] 0.92 mg/dL Low 1.80-2.[address] [facility] Comment on above: Performed By: #### 7 388457, 23049033, 5134258, [id number] #### [facility] (DEFAULT) [address] [place] [address] Morphologyon 08-06-2021 Aniso 1+ Normal [facility] Comment on above: Order Comment: Order added by Joselito. Performed By: #### 7 651101, 12279366, 0041793, [id number] #### [facility] (DEFAULT) [address] [place] [address] Hypochrom 1+ Normal [facility] Comment on above: Order Comment: Order added by Joselito. Performed By: #### 7 436333, 67476335, 1162488, [id number] #### [facility] (DEFAULT) [address] [place] [address] Microcyte 1+ Normal [facility] Comment on above: Order Comment: Order added by Joselito. Performed By: #### 7 230388, 16964539, 7307478, [id number] #### [facility] (DEFAULT) [address] [place] [address] RBC morphology finding Nom (Bld) See Morphology Normal [facility] Comment on above: Order Comment: Order added by Joselito. Performed By: #### 7 072843, 03423780, 7314854, [id number] #### [facility] (DEFAULT) [address] [place] [address] RBC.on 08-06-2021 RBC. # of Units: 2 RBC Indication: Symptom Anemia Additional Units?: No Date Needed: 08/06/21 Red Cell Status: RBC Ready Normal [facility] Comment on above: Performed By: #### 1 [id number], [id number], [id number], [id number] #### [facility] (DEFAULT) [address] [place] [address] SARS-CoV-2 (COVID-19) PCRon 08-06-2021 Employed in healthcare? No Invalid Interpretation Code [facility] Comment on above: Performed By: #### 1 [id number], [id number], [id number], [id number] #### [facility] (DEFAULT) [address] [place] [address] Group care resident? Yes Invalid Interpretation Code [facility] Comment on above: Performed By: #### 1 [id number], [id number], [id number], [id number] #### [facility] (DEFAULT) [address] [place] [address] In ICU? Unknown Invalid Interpretation Code [facility] Comment on above: Performed By: #### 1 [id number], [id number], [id number], [id number] #### [facility] (DEFAULT) [address] [place] [address] status? Not Invalid Interpretation Code [facility] Comment on above: Performed By: #### 1 [id number], [id number], [id number], [id number] #### [facility] (DEFAULT) [address] [place] [address] SARS-CoV-2 (COVID-19) RNA JESSICA+probe Ql (Unsp spec) Detected Critically abnormal Not Detected [facility] Comment on above: Result Comment: Resu lts Called To MCIAH Prince in ER By RR And Read Back For Confirmation On 08/06/2021 19:54:09 EST. Performed by PCR methodology. Performed By: #### 1 [id number], [id number], [id number], [id number] #### [facility] (DEFAULT) [address] [place] [address] SARS-CoV-2 (COVID-19) RNA JESSICA+probe Ql (Unsp spec) Unknown Invalid Interpretation Code [facility] Comment on above: Performed By: #### 1 [id number], [id number], [id number], [id number] #### [facility] (DEFAULT) [address] [place] [address] Symptomatic as defined by CDC? No Invalid Interpretation Code [facility] Comment on above: Performed By: #### 1 [id number], [id number], [id number], [id number] #### [facility] (DEFAULT) [address] [place] [address] TnI HSon 08-06-2021 Troponin I High Sensitivity 21 pg/mL Critically abnormal <=[address] [facility] Comment on above: Result Comment: Elev ated hsTnI 21 result called and read back ok to: GELY OBRIEN ER at: 19:26:45 08/06/2021 by: RRUPPERT Male Baseline Delta 1Hr (Note pg/mL=ng/L) <20pg/mL 50-60% >20pg/mL 20% Female Baseline Delta 1Hr <15pg/mL 50-60% >15pg/mL 20% Other Baseline Delta 1Hr <18ng/mL 50-60% >18ng/mL 20% ([place] [employer] Guidelines February 2018) Performed By: #### 7 [id number], [id number], [id number], [id number] #### [facility] (DEFAULT) [address] [place] [address] Troponin I High Sensitivity 17 pg/mL Critically abnormal <=[address] [facility] Comment on above: Result Comment: Elev ated hsTnI 17 result called and read back ok to: JESSICA AL RN IN ER at: 18:28:53 08/06/2021 by: RRUPPERT Male Baseline Delta 1Hr (Note pg/mL=ng/L) <20pg/mL 50-60% >20pg/mL 20% Female Baseline Delta 1Hr <15pg/mL 50-60% >15pg/mL 20% Other Baseline Delta 1Hr <18ng/mL 50-60% >18ng/mL 20% ([place] [employer] Guidelines February 2018) Performed By: #### 7 [id number], [id number], [id number], [id number] #### [facility] (DEFAULT) [address] [place] [address] XR Chest 1 View Frontalon XR Chest [...] DO 08/06/21 8:49 pm Technologist: RANDALL Barton [facility] KNEE RIGHT 3 VWSon KNEE RIGHT 3 [facility] Department of Radiology [address] [place] [address] Patient Name: ASHVIN RENE : 1955 Sex: F Age: Race: White Pt. Location: Patient Status: O Ordered Date: 01/01/2021 3:20:00 PM Completed Date: 01/01/2021 03:21 PM Requesting Provider: TIARA VÁZQUEZ Attending Provider: TIARA VÁZQUEZ Report Copy To: Signs & Symptoms: M25.561 Pain in right knee I10 History: Comments: Evaluate Exam: KNEE RIGHT 3 [facility] KNEE RIGHT 3 VWS 01/01/2021 3:21 PM [...] change Electronically signed: Tawana Andrade. Transcribed by: [email or web address], User Resident: Electronically Signed by: TAWANA ANDRADE @ 01/01/2021 08:57 PM Normal [facility] Comment on above: Order Comment: Evalu ate Basic Metabolic Panlon 12-08 Anion gap [Moles/Vol] 13 mmol/L Normal 9-18 [facility] Comment on above: Performed By: #### B MP ####[facility] [place], [place] [phone] Calcium [Mass/Vol] 7.1 mg/dL Low 8.5-10.2 [facility] Comment on above: Performed By: #### B MP ####[facility] [address] [place], [place] [phone] Chloride [Moles/Vol] 107 mmol/L High 97-105 [facility] Comment on above: Performed By: #### B MP ####[facility] [address], [place] [phone] CO2 [Moles/Vol] 18 mmol/L Low 22-30 [facility] Comment on above: Performed By: #### B MP ####[facility] [address] [place], [place] [phone] Creatinine [Mass/Vol] 0.97 mg/dL High 0.58-0.96 [facility] Comment on above: Performed By: #### B MP ####[facility] [address] [place], [place] [phone] eGFR- Amer. >60 Normal [facility] Comment on above: Performed By: #### B MP ####[facility] [place], [place] [phone] eGFR-All Other Races [address] [facility] Comment on above: Result Comment: eGFR [...] actual GFR. Performed By: #### B MP ####[address] [phone] Glucose [Mass/Vol] 79 mg/dL Normal 74-99 [facility] Comment on above: Result Comment: The [place] Diabetes Association (ADA) provides guidance for cutoff [...] Standards of Medical Care in Diabetes 2016, [place] [employer] Association. Diabetes Care. 2016.39(Suppl 1). Performed By: #### B MP ####[facility] [place], [place] [phone] Potassium [Moles/Vol] 4.4 mmol/L Normal 3.7-5.1 [facility] Comment on above: Performed By: #### B MP ####[facility] [place], [place] [phone] Sodium [Moles/Vol] 138 mmol/L Normal 136-144 [facility] Comment on above: Performed By: #### B MP ####[address] [phone] Urea nitrogen [Mass/Vol] 15 mg/dL Normal 7-21 [facility] Comment on above: Performed By: #### B MP ####[address] [phone] Coronavirus 2019on SARS-CoV-2 (COVID-19) RNA JESSICA+probe Ql (Unsp spec) Nasopharyngeal Swab Normal [facility] Comment on above: Performed By: #### C OVID ####[address] [phone] SARS-CoV-2 (COVID-19) RNA JESSICA+probe Ql (Unsp spec) Negative for COVID19 (SARS CoV2) by RT-PCR or equivalent method. Normal Negative for COVID19 (SARS CoV2) by RT-PCR or equivalent method. [facility] Comment on above: Result Comment: This test was developed and its performance characteristics determined by [facility] [place]. This test has been authorized by FDA under an Emergency Use Authorization (EUA). This test has been validated in accordance with the FDA's Guidance Document Policy for Diagnostics Testing in Laboratories Certified to Perform High Complexity Testing under CLIA prior to Emergency use Authorization for Coronavirus Disease 2019 during the Public Health Emergency issued on September 11, 2019. Test performed by [facility], [facility] [place], [address] [place], [place] [address]. Performed By: #### C OVID ####[address] [phone] CBCon 12-07-2020 Absolute nRBC <0.01 Normal <0.01 [facility] Comment on above: Performed By: #### C MP, CBC, PT ####[address] [phone] Erythrocyte distribution width (RBC) [Ratio] 15.1 % High 11.5-15.0 [facility] Comment on above: Performed By: #### C MP, CBC, PT ####[address] [phone] Hematocrit (Bld) [Volume fraction] 33.1 % Low 36.0-46.0 [facility] Comment on above: Performed By: #### C MP, CBC, PT ####[place] [phone] Hemoglobin (Bld) [Mass/Vol] 10.0 g/dL Low 11.5-15.5 [facility] Comment on above: Performed By: #### C MP, CBC, PT ####[place] [phone] MCH 31.9 pG Normal 26.0-34.0 [facility] Comment on above: Performed By: #### C MP, CBC, PT ####[place] [phone] MCHC (RBC) [Mass/Vol] 30.2 g/dL Low 30.5-36.0 [facility] Comment on above: Performed By: #### C MP, CBC, PT ####[place] [address] [place] [phone] MCV (RBC) [Entitic vol] 105.8 fL High 80.0-100.0 [facility] Comment on above: Performed By: #### C MP, CBC, PT ####[place] [phone] Platelet mean volume (Bld) [Entitic vol] 9.6 fL Normal 9.0-12.7 [facility] Comment on above: Performed By: #### C MP, CBC, PT ####[place] [address], [place] [phone] Platelets (Bld) [#/Vol] 256 10*3/uL Normal 150-400 [facility] Comment on above: Performed By: #### C MP, CBC, PT ####[place] [address], [place] [phone] RBC (Bld) [#/Vol] 3.13 10*6/uL Low 3.90-5.20 [facility] Comment on above: Performed By: #### C MP, CBC, PT ####[place] [address], [place] [phone] WBC (Bld) [#/Vol] 5.83 10*3/uL Normal 3.70-11.00 [facility] Comment on above: Performed By: #### C MP, CBC, PT ####[place] [address], [place] [phone] Comp Metabolic Panelon 12-07 Albumin [Mass/Vol] 3.1 g/dL Low 3.9-4.9 [facility] Comment on above: Performed By: #### C MP, CBC, PT ####[place] [address], [place] [phone] ALP [Catalytic activity/Vol] 34 U/L Normal 34-123 [facility] Comment on above: Performed By: #### C MP, CBC, PT ####[place] [address], [place] [phone] ALT [Catalytic activity/Vol] 16 U/L Normal 7-38 [facility] Comment on above: Performed By: #### C MP, CBC, PT ####[place] [id number], [place] [phone] Anion gap [Moles/Vol] 8 mmol/L Low 9-18 [facility] Comment on above: Performed By: #### C MP, CBC, PT ####[place] [address] [phone] AST [Catalytic activity/Vol] 16 U/L Normal 13-35 [facility] Comment on above: Performed By: #### C MP, CBC, PT ####[place] [address] [address] [phone] Bilirubin [Mass/Vol] 0.2 mg/dL Normal 0.2-1.3 [facility] Comment on above: Performed By: #### C MP, CBC, PT ####[place] [address] [phone] Calcium [Mass/Vol] 8.4 mg/dL Low 8.5-10.2 [facility] Comment on above: Performed By: #### C MP, CBC, PT ####[place] [address] [place] [phone] Chloride [Moles/Vol] 111 mmol/L High 97-105 [facility] Comment on above: Performed By: #### C MP, CBC, PT ####[place] [address] [place] [phone] CO2 [Moles/Vol] 21 mmol/L Low 22-30 [facility] Comment on above: Performed By: #### C MP, CBC, PT ####[place] [address] [place] [phone] Creatinine [Mass/Vol] 1.16 mg/dL High 0.58-0.96 [facility] Comment on above: Performed By: #### C MP, CBC, PT ####[place] [address] [place] [phone] eGFR- Amer. 56 Normal [facility] Comment on above: Performed By: #### C MP, CBC, PT ####[place] [address] [place] [phone] eGFR-All Other Races [address] [facility] Comment on above: Result Comment: eGFR [...] Performed By: #### C MP, CBC, PT ####[facility], [place] [phone] Glucose [Mass/Vol] 96 mg/dL Normal 74-99 [facility] Comment on above: Result Comment: The [place] Diabetes Association (ADA) provides guidance for cutoff [...] Standards of Medical Care in Diabetes 2016, [place] Diabetes Association. Diabetes Care. 2016.39(Suppl 1). Performed By: #### C MP, CBC, PT ####[facility] [address], [place] [phone] Potassium [Moles/Vol] 4.7 mmol/L Normal 3.7-5.1 [facility] Comment on above: Performed By: #### C MP, CBC, PT ####[facility], [place] [phone] Protein [Mass/Vol] 5.0 g/dL Low 6.3-8.0 [facility] Comment on above: Performed By: #### C MP, CBC, PT ####[facility], [place] [phone] Sodium [Moles/Vol] 140 mmol/L Normal 136-144 [facility] Comment on above: Performed By: #### C MP, CBC, PT ####[facility] [place], [place] [phone] Urea nitrogen [Mass/Vol] 22 mg/dL High 7- [facility] Comment on above: Performed By: #### C MP, CBC, PT ####[place] [id number] [place], [place] [phone] Protimeon 12-07-2020 PT INR 1.2 Normal 0.9-1.3 [facility] Comment on above: Result Comment: Jenny min K Antagonist (VKA) Therapeutic Range: INR 2 to 3 (Target INR of 2.5) Note: For patients treated with VKA drugs, such as warfarin, the [place] [employer] of Chest Physicians 2012 Guideline recommends [...] Chest 2012, 141:7S-47S Haile RA, et al. JAC 2017, 70: 252-289 Performed By: #### C MP, CBC, PT ####[facility] [place], [place] [phone] PT Sec 12.3 sec Normal 9.7-13.0 [facility] Comment on above: Performed By: #### C MP, CBC, PT ####[place] [id number] [place], [place] [phone] [employer] 12-06-2020 JEFFREY Telephone (BIBI) -- ASHVIN RENE ([id number]) 1955 F Date Time Provider Department 12/06/20 [...] education topics: Arrival time/NPO Status/Medications/Travel INSTRUCTED ON [employer] RESTRICTIONS - AWARE TO HAVE BUS DISPATCHER INTERSTATE Instructions/Restrictions Patient/Family Response Evaluation: Verbalizes understanding Follow [...] 12/06/2020 Noted Resolved Coronary artery disease of [place] artery of otilio*11/24/2020 S/P CABG (coronary artery bypass graft) [Z95.1] 11/24/2020 Pure hypercholesterolemia [E78.00] 11/24/2020 Type 2 diabetes mellitus without complication, *11/24/2020 Fatigue [R53.83] 11/24/2020 Encounter Status:Closed by COTY MORALES RN [facility] JEFFREY Telephone (DIOMEDES) -- ASHVIN RENE ([id number]) 1955 F Date Time Provider Department 11/28/20 NAY JOSEPH During your visit today, we recorded the following information about you: Maria E Jabari Adm 11/28/2020 8:56 AM Signed Patient called to confirm that she did consider moving forward with PCI, and she would like to do so. She asked if she could have her COVID test and labs done locally, and will call back with a fax number for the orders to be sent. Kd Solitario 11/29/2020 9:46 AM Signed Faxed orders to [phone] Kd Soliatrio 11/29/2020 12:22 PM Signed Patient called back and gave alternative fax # [phone] She would also like cath to be scheduled on 12/07. 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] Order(s):CARDIAC SHIPPING RECEIVING MANAGER ORDER [[id number]] Order #: [id number]: 1 INTERMEDIATE RAPID COVID [SQITCOVD] Order #: [id number] FUTURE COMP METABOLIC PANEL [SQCMP] Order #: [id number] FUTURE CBC [SQCBC] Order #: [id number] FUTURE LIPID PANEL BASIC [SQLIPB] Order #: [id number] FUTURE CK CREATINE KINASE [SQCK] Order #: [id number] FUTURE ECG COMPLETE [ECG01] Order #: [id number] FUTURE Prescriptions as of 11/28/2020 Sig: ACETAMINOPHEN [...] 11/28/2020 Noted Resolved Coronary artery disease of [place] artery of otilio*11/24/2020 S/P CABG (coronary artery bypass graft) [Z95.1] 11/24/2020 Pure hypercholesterolemia [E78.00] 11/24/2020 Type 2 diabetes mellitus without complication, *11/24/2020 Fatigue [R53.83] 11/24/2020 Encounter Status:Closed by NAY JOSEPH on 11/29/20 [facility] CNOVon 11-24-2020 CNOV Office Visit (CATHMN ) -- ASHVIN RENE ([id number]) 1955 F Date Time Provider Department 11/24/20 9:30 AM NAY JOSEPH During your visit today, we recorded the following information about you: Pulse Respiration Blood pressure Weight 91/minute 20/minute 108/63 64.3 kg Height 1.6 m A. Nay Joseph MD 11/29/2020 7:54 AM Signed [facility] Department of Cardiovascular Medicine SECTION OF INTERVENTIONAL CARDIOLOGY OUTPATIENT VISIT DATE November 23, 2020 OUTPATIENT VISIT TYPE NEW PRIMARY CARE PHYSICIAN: Tushar Solano Jr, DO ([facility]) [address] [facility] [address] [place] [address] REFERRING PHYSICIAN: Waqas Mabry MD [address] [facility] [address] CHIEF COMPLAINT: No chief complaint on file. [...] to unknown vessel (heartburn resolved after PCI) 2014 CABG x 2 L-LAD SVG-dRCA (heartburn, abnormal stress-symptoms resolved after CABG) 2015 CVA and (?) AR 05/24/16 Echo ? Normal left ventricular end-diastolic [...] Lexiscan injection (more content not included)... Normal [facility] CNCOon 11-22-[address] [facility] CNPNon 11-22-2020 CNPN Telephone (CATHMN) -- ASHVIN RENE ([id number]) 1955 F Date Time Provider Department 11/22/20 NAY JOSEPH During your visit today, we recorded the following information about you: Kd Solitario 11/22/2020 3:54 PM Signed Urgent records request faxed to [phone] Allergies As of Date: 11/22/2020 (Not on File) Date Reviewed: Never Reviewed Reason for Visit: Request Outside Medical Records [3579] Problem List As Of Date: 11/22/2020 (None) Encounter Status:Closed by KD SOLITARIO on 11/22/20 [facility] 11-09-2020 CNPN Telephone (REFPHY) -- ASHVIN RENE ([id number]) 1955 F Date Time Provider Department 11/09/20 NO ONE (HISTORICAL) REFPHY During your visit today, we recorded the following information about you: Ashvin Quezada [facility] 11/09/2020 10:11 AM Signed Patient: Ashvin Clinton Date of : 1955 Patient phone number: [phone] Referring Provider for the encounter: Dr Waqas Mabry Requesting Provider: Cardiology Reason for requesting visit (RFV/signs and symptoms/diagnosis): 2nd Opinion - Severe CAD Person calling: caregiver: ERIC Return call to: self Medical Records/Insurance Card scanned into [email or web address]: Yes Comments: N/A Allergies As of Date: 11/09/2020 (Not on File) Date Reviewed: Never Reviewed Reason for Visit: External Referrals/resources [909] Problem List As Of Date: 11/09/2020 (None) Encounter Status:Closed by ASHVIN DIAZ on 11/09/[address] [facility] XA-CARDIAC CATHETERIZATION I MPORTon 10-25-2020 XA-CARDIAC CATHETERIZATION IMPORT Images were obtained outside of [facility] [id number] Normal [facility] Vital Signs Date Time Vital Sign Value Performing Clinician Facility 10-15-2023 14:00-0400 Heart rate 80 /min Jonathan Malas DO Work Phone: [facility] [employer] [facility] 10-15-2023 14:00-0400 Respiratory rate 15 /min Jonathan Malas DO Work Phone: [facility] [employer] [facility] 10-15-2023 14:00-0400 SaO2% (BldA) [Mass fraction] 95 % Jonathan Malas DO Work Phone: [facility] [employer] [facility] 10-15-2023 12:15-0400 Body temperature 98.6 [degF] Jonathan Malas DO Work Phone: [facility] [employer] [facility] 10-15-2023 12:15-0400 Diastolic blood pressure 78 mm[Hg] Greggem Malas DO Work Phone: [facility] [employer] [facility] 10-15-2023 12:15-0400 Systolic blood pressure 121 mm[Hg] Jonathan Malas DO Work Phone: [facility] [employer] [facility] 10-14-2023 05:00-0400 Body mass index (BMI) [Ratio] 27.66 kg/m2 Jonathan Malas DO Work Phone: [facility] [employer] [facility] 10-14-2023 05:00-0400 Body weight 68.6 kg Jonathan Malas DO Work Phone: [facility] [employer] [facility] 10-13-2023 11:21-0400 Body height 157.5 cm Jonathan Malas DO Work Phone: [facility] [employer] [facility] 08-21-2023 14:09-0500 Body temperature 97.9 [degF] Dwain Mills DPM Work Phone: [facility] 08-21-2023 14:09-0500 Diastolic blood pressure 62 mm[Hg] Dwain Mills DPM Work Phone: [facility] 08-21-2023 14:09-0500 Heart rate 84 /min Dwain Mills DPM Work Phone: [facility] 08-21-2023 14:09-0500 Systolic blood pressure 145 mm[Hg] Dwain Mills DPM Work Phone: [facility] 08-06-2023 16:00-0500 Diastolic blood pressure 65 mm[Hg] [facility] 08-06-2023 16:00-0500 Heart rate 80 /min [facility] 08-06-2023 16:00-0500 Respiratory rate 16 /min [facility] 08-06-2023 16:00-0500 SaO2% (BldA) [Mass fraction] 100 % [facility] 08-06-2023 16:00-0500 Systolic blood pressure 107 mm[Hg] [facility] 08-06-2023 12:48-0500 Inhaled oxygen flow rate 3 L/min [facility] 08-06-2023 11:08-0500 Body height 157.48 cm [facility] 08-06-2023 11:08-0500 Body weight 63.04 kg [facility] 08-04-2023 10:45-0500 Body height 160.66 cm Jolie De Luna Other [facility] [employer] Other 08-04-2023 10:45-0500 Body mass index (BMI) [Ratio] 24.43 kg/m2 Jolie De Luna Other [employer] [facility] [employer] Other 08-04-2023 10:45-0500 Body temperature 97.8 [degF] Jolie De Luna Other [employer] Other 08-04-2023 10:45-0500 Body weight 63.05 kg Jolie De Luna Other [employer] Other 08-04-2023 10:45-0500 Diastolic blood pressure 64 mm[Hg] Jolie De Luna Other [employer] Other 08-04-2023 10:45-0500 SaO2% (BldA) [Mass fraction] 98 % Jolie De Luna Other [employer] Other 08-04-2023 10:45-0500 Systolic blood pressure 110 mm[Hg] Jolie De Luna Other [employer] Other 06-25-2023 11:16-0500 Body height 157.5 cm Norman Braga MD Work Phone: [employer] 06-25-2023 11:16-0500 Body mass index (BMI) [Ratio] 25.79 kg/m2 Norman Braga MD Work Phone: [employer] 06-25-2023 11:16-0500 Body temperature 98.2 [degF] Norman Braga MD Work Phone: [employer] 06-25-2023 11:16-0500 Body weight 63.96 kg Norman Braga MD Work Phone: [employer] 05-20-2022 11:05-0500 Body height 160.66 cm Virginia Marti Other [employer] Other 05-20-2022 11:05-0500 Body mass index (BMI) [Ratio] 21.09 kg/m2 Virginia Marti Other [employer] Other 05-20-2022 11:05-0500 Body temperature 97.3 [degF] Virginia Marti Other [employer] Other 05-20-2022 11:05-0500 Body weight 54.43 kg Virginia Marti Other [employer] Other 05-20-2022 11:05-0500 Diastolic blood pressure 66 mm[Hg] Virginia Marti Other [employer] Other 05-20-2022 11:05-0500 Respiratory rate 18 /min Virginia Marti Other [employer] Other 05-20-2022 11:05-0500 SaO2% (BldA) [Mass fraction] 100 % Virginia Marti Other [employer] Other 05-20-2022 11:05-0500 Systolic blood pressure 112 mm[Hg] Virginia Marti Other [employer] Other 04-12-2021 15:45-0400 Body height 160.66 cm Antonio Julio Other [employer] Other 04-12-2021 15:45-0400 Body mass index (BMI) [Ratio] 25.3 kg/m2 Antonio Kim Other [employer] Other 04-12-2021 15:45-0400 Body weight 65.32 kg Antonio Kim Other [employer] Other 09-09-2019 10:00-0500 BP Diastolic 80 mm[Hg] [facility] 09-09-2019 10:00-0500 BP Systolic 138 mm[Hg] [facility] 09-09-2019 10:00-0500 Pulse (Heart Rate) 80 /min [facility] 09-09-2019 10:00-0500 Pulse Oximetry 96 % Tushar Russ [facility] 09-09-2019 10:00-0500 Respiratory Rate 16 /min [facility] 09-09-2019 08:20-0500 BMI (Body Mass Index) 25 kg/m2 [facility] 09-09-2019 08:20-0500 Body weight 63.95 kg [facility] 09-09-2019 08:20-0500 Height 160.02 cm [facility] 09-09-2019 07:10-0500 Body Temperature 97.9 [degF] T[facility] 08-12-2019 09:55-0500 BP Diastolic 73 mm[Hg] [facility] 08-12-2019 09:55-0500 BP Systolic 132 mm[Hg] [facility] 08-12-2019 09:55-0500 Pulse (Heart Rate) 86 /min [facility] 08-12-2019 09:55-0500 Pulse Oximetry 97 % [facility] 08-12-2019 09:55-0500 Respiratory Rate 16 /min [facility] 08-12-2019 08:47-0500 BMI (Body Mass Index) 25.2 kg/m2 [facility] 08-12-2019 08:47-0500 Body weight 63.5 kg [facility] 08-12-2019 08:47-0500 Height 158.75 cm [facility] 08-12-2019 07:27-0500 Body Temperature 98.8 [degF] [facility] Encounters Encounter Date Encounter Type Care Provider Facility Start: 02-17-2024 End: 02-17-2024 ambulatory TRUNG FLORES Not Available Start: 10-23-2023 End: 10-23-2023 ambulatory MARIAMA INGRAM [facility] Start: 10-13-2023 ambulatory TUSHAR SOLANO [facility] Start: 10-13-2023 End: 10-15-2023 [facility] and [facility] Start: 10-12-2023 End: 10-15-2023 Evaluation and management of inpatient Jonathan Pizarro DO Work Phone: [facility] - GEN 5 ICU Comment on above: Decompensated heart failure ([facility]) (Primary Dx); NSTEMI (non-ST elevated myocardial infarction) ([facility]) Start: 10-12-2023 Documentation procedure Jonathan Pizarro DO Work Phone: [facility] [employer] Start: 10-06-2023 End: 10-07-2023 Orders Only Cheikh Rodrigez [facility] Comment on above: 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) Start: 09-09-2023 End: 09-09-2023 ambulatory DWAIN MILLS Not Available Start: 08-22-2023 Telephone encounter Alida Holder [facility] Comment on above: Santyl Start: 08-21-2023 Bamboo flowsheet Dwain moore DPM Work Phone: [facility] Start: 08-21-2023 Bamboo flowsheet Dwain Rea tz DPM Work Phone: [facility] Start: 08-21-2023 End: 08-21-2023 Office outpatient visit 15 minutes Dwain Mills DPM Work Phone: [facility] Comment on above: 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); Gangrene (CMS/HCC); Pain in toe of right foot; Arteriosclerosis of arteries of extremities (CMS/HCC) Start: 08-21-2023 End: 08-21-2023 ambulatory DWAIN MILLS Not Available Start: 08-07-2023 End: 08-07-2023 ambulatory DWAIN MILLS Not Available Start: 08-06-2023 End: 08-06-2023 ambulatory Tushar Solano Facility:[facility] Start: 08-06-2023 Non-patient / Non-visit [facility] Work Phone: Start: 08-04-2023 End: 08-04-2023 ambulatory Jolie De Luna Other [employer] Other Start: 08-04-2023 FQ visit new patient Jolie harkins [facility] Start: 07-24-2023 End: 07-24-2023 ambulatory DWAIN MILLS Not Available Start: 06-25-[address] [facility] Start: 06-25-2023 End: 06-25-2023 Office outpatient new 45 minutes Norman Braga MD Work Phone: [facility] Comment on above: Left knee pain, unsp ecified chronicity (Primary Dx) Start: 06-25-2023 End: 06-25-2023 Subsequent hospital visit by physician Norman Braga MD Work Phone: [facility] Start: 10-15-2022 End: 10-16-[address] TUSHAR SOLANO Facility:[facility] Start: 07-16-2022 End: 07-17-[address] TUSHAR SOLANO Facility:[facility] Start: 06-14-2022 End: 06-15-[address] TUSHAR SOLANO Facility:[facility] Start: 05-20-2022 Office outpatient vi sit 15 minutes Virginia Marti [facility] Start: 05-20-2022 End: 05-20-2022 ambulatory JR Tushar Solano Work Phone: [facility] Work Phone: Start: 05-20-2022 End: 05-20-2022 Patient encounter procedure JR Tushar Solano Work Phone: [facility] Start: 06-11-2021 End: 06-11-2021 ambulatory Antonio Kim Other [employer] Other Start: 06-11-2021 Telephone encounter Antonio Cardenas ck [facility] Start: 04-12-2021 Office outpatient ne w 45 minutes Antonio Kim [facility] Start: 11-09-2020 End: 11-09-2020 Telephone encounter No One (Historical) Referring Physician Comment on above: External Referrals/r esources Start: 09-09-2019 End: 09-09-2019 Ad[facility] to [facility] Start: 08-12-2019 End: 08-12-2019 Admission to [facility] Procedures Date Procedure Procedure Detail Performing Clinician Start: 10-23-2023 Follow-up visit Follow-up MARIAMA Víctor BETTSE Start: 10-15-2023 Assay of magnesium Nikolas Rodriguez CHARTER BUS DRIVER-OIL SPRAYING MACHINE OPERATOR Work Phone: Start: 10-15-2023 Radiologic exam chest single view Kallie Roman MD Work Phone: Start: 10-15-2023 Basic metabolic panel calcium total Hazem Malas DO Work Phone: Start: 10-14-2023 Calcium ionized Parul Holder Jeb CHARTER BUS DRIVER-OIL SPRAYING MACHINE OPERATOR Work Phone: Start: 10-14-2023 Lipid panel Kristyn Avila MD Work Phone: Start: 10-14-2023 Calcium ionized Parul Holder Jeb CHARTER BUS DRIVER-OIL SPRAYING MACHINE OPERATOR Work Phone: Start: 10-14-2023 Cardiac catheterization Obdulia Grove MD Work Phone: Start: 10-14-2023 Basic metabolic panel calcium total Parul Holder Jeb CHARTER BUS DRIVER-OIL SPRAYING MACHINE OPERATOR Work Phone: Start: 10-14-2023 Ecg routine ecg w/least 12 lds trcg only w/o i&r Parul Holder Jeb CHARTER BUS DRIVER-OIL SPRAYING MACHINE OPERATOR Work Phone: Start: 10-13-2023 Calcium ionized Parul R Jeb CHARTER BUS DRIVER-OIL SPRAYING MACHINE OPERATOR Work Phone: Start: 10-13-2023 Heparin assay Parul Holder Jeb CHARTER BUS DRIVER-OIL SPRAYING MACHINE OPERATOR Work Phone: Start: 10-13-2023 Calcium ionized Hazem Malas DO Work Phone: Start: 10-13-2023 Echo tthrc r-t 2d w/wom-mode compl spec&colr d Parul Hassann CHARTER BUS DRIVER-OIL SPRAYING MACHINE OPERATOR Work Phone: Start: 10-13-2023 Potassium serum plasma/whole blood Jonathan Pizarro DO Work Phone: Start: 10-13-2023 Basic metabolic panel calcium total Parul Gallo Jeb CHARTER BUS DRIVER-OIL SPRAYING MACHINE OPERATOR Work Phone: Start: 10-13-2023 Basic metabolic panel calcium total Parul Mcdowellfern CHARTER BUS DRIVER-OIL SPRAYING MACHINE OPERATOR Work Phone: Start: 10-13-2023 Ecg routine ecg w/least 12 lds trcg only w/o i&r Parul Mcdowellfern CHARTER BUS DRIVER-OIL SPRAYING MACHINE OPERATOR Work Phone: Start: 10-12-2023 Gluc bld gluc mntr dev cleared fda spec home use Jonathan Pizarro DO Work Phone: Start: 05-20-2022 Plain X-ray of right hand JR Tushar ricketts Work Phone: Start: 10-19-2020 History of coronary artery bypass grafting History of coronary artery bypass surgery Dwain Mills DPTessy Work Phone: Start: 09-09-2019 Phacoemulsification of cataract with intraocular lens implantation Tushar Russ Start: 08-12-2019 Phacoemulsification of cataract with intraocular lens implantation Tushar Robersonliliam Plan of Treatment Date Care Activity Detail Author Start: 05-20-2032 DTaP,Tdap and Td Vac cines (2 - Td or Tdap) DTaP,Tdap and Td Vaccines (2 - Td or Tdap) [facility] Start: 05-20-2032 Tetanus vaccination TETANUS [facility] Start: 05-19-2024 Adult BMI Screening Adult BMI Screen ing [facility] Start: 05-19-2024 Tobacco Screening Tobacco Screening [facility] Start: 11-13-2023 End: 11-13-2023 Patient encounter procedure 11/13/2023 2:30 PM EDT Office Visit [facility] [address] [place] [id number] Bernice Davis MD [address] [place] [address] [facility] Start: 10-16-2023 End: 10-16-2023 Patient encounter procedure 10/16/2023 1:30 PM EDT Office Visit [facility] [address] [place] [address] Genet Small, DO [address] [place] [address] [facility] Start: 09-09-2023 End: 09-09-2023 Patient encounter procedure 09/09/2023 10:15 AM EST Office Visit [facility] [address] [place] [phone] Dwain Mills, DPM [address] [place] [address] [facility] Start: 08-21-2023 End: 08-21-2023 Patient encounter procedure 08/21/2023 2:00 PM EST Office Visit [facility] [address] [place] [phone] Dwain Mills, DPM [address] [place] [address] Arrived [facility] Comment on above: Arrived Start: 08-06-2023 [facility] Start: 03-14-2023 Influenza vaccination [facility] Start: 2018 Fall Risk Screening Fall Risk Screen ing [facility] Start: 2018 Pneumococcal vaccination PNEUM OCOCCAL VACCINE SERIES (2 - PCV) [facility] Start: 11-20-2003 Administration of varicella zoster vaccine Zoster (Shingles) Vaccine (1 of 2) [facility] Start: 11-20-2003 Zoster vaccine hzv l pool for subcutaneous use ZOSTER (SHINGLES) VACCINE (1 of 2) [facility] Start: 1998 Screening for malign ant neoplasm of colon COLORECTAL CANCER SCREENING DISCUSSION [facility] Start: 1993 Lipid panel LIPID SCREENING [facility] Start: 1993 Screening for malign ant neoplasm of breast MAMMOGRAM SCREENING DISCUSSION [facility] Start: 1974 Screening for malign ant neoplasm of cervix CERVICAL CANCER SCREENING DISCUSSION [facility] Start: 1972 Third diphtheria, te tanus and acellular pertussis (DTaP) vaccination TDAP (ADULT) [facility] Start: 11-20-1971 Adult BMI Follow Up Plan Adult BMI Follow Up Plan [facility] Start: 1965 Depression Screening Depression Scre ening [facility] Start: 05-22-1954 COVID-19 VACCINE (#1) COVID-19 VACCI NE (#1) [facility] Start: 1953 Hepatitis C screening HEPATITI S C VIRUS SCREENING [facility] Start: 1955 Medicare Annual Well ness Visit Medicare Annual Wellness Visit [facility] Start: 1955 Screening for osteoporosis DEXA SCAN DISCUSSION [facility] Start: 1953 Thyroid stimulating hormone measurement TSH [facility] Patient Education Atherectomy - Angioplasty of a Noncoronary Vessel Arteriogram (DC) [facility] Work Phone: Patient referral [facility] Radiography for bone length studies XR BONE LENGTH STUDY Imaging Routine Left knee pain, unspecified chronicity 06/25/2023 10:28 AM [facility] Work Phone: XR Knee - left 4 Views XR KNEE L EFT 4+ VIEWS Imaging Routine Left knee pain, unspecified chronicity 06/25/2023 10:28 AM [facility] Immunizations Immunization Date Immunization Notes Care Provider Joe silva 05-20-2022 tetanus and diphther ia toxoids, adsorbed, preservative free, for adult use (5 Lf of tetanus toxoid and 2 Lf of diphtheria toxoid) Virginia Marti Other [facility] 05-21-2018 Seasonal trivalent influenza vaccine, adjuvanted, preservative free Cheikh Rain [facility] 05-21-2018 influenza virus vaccine, unspecified formulation Norman Braga MD Work Phone: [facility] 09-12-2014 pneumococcal polysaccharide vaccine, 23 valent Jaclin Rain [facility] NEGATED: Highlighted row has not occurred!02-16-2023 pneumococcal conjugate vaccine, 13 valent Jaclin Rain [facility] Payers Date Payer Category Payer Self-pay [id number] 2022 Medicare [id number] 2020 Unknown [employer] [id number] 2020-Present Indemnity [id number] 2018 Medicare MEDICARE MEDICAR E A AND B [id number] 2018-Present [place], [place] Medicare [id number] 1959 Medicare [id number] 1959 Unknown [id number] 1959 Unknown [id number] 1953 Unknown [id number] 1953 Unknown [id number] 1953 Unknown [id number] 1953 Unknown [id number] [id number] 1953 Unknown [id number] [id number] 1953 Unknown [id number] 2.16.840.1.073798.3.579.2.128 6 1953 Unknown [id number] [id number] 6 1953 Unknown [id number] 2.16.840.1.171520.3.579.2.128 6 1953 Unknown [id number] 2.16.840.1.646861.3.579.2.128 6 1953 Unknown [id number] 2.16.840.1.348427.3.579.2.125 9 1953 Unknown [id number] 2.16.840.1.196627.3.579.2.125 9 1953 Unknown [id number] 2.16.840.1.146997.3.579.2.125 9 1953 Unknown [id number] 2.16.840.1.779305.3.579.2.125 9 1953 Unknown [id number] [id number] 9 Unknown [id number] Unknown [id number] Unknown [id number] Social History Date Type Detail Facility Start: 06-18-2016 End: 09-09-2019 Tobacco smoking status NHIS Never smoked tobacco (finding) [facility] Start: 1955 Sex Assigned At Female [facility] Start: 1955 Sex Assigned At [facility] file [facility] Start: 08-24-2020 End: 06-25-[address] [facility] [employer] Other Start: 06-18-2016 End: 06-25-2023 Tobacco use and exposure [facility]ok[facility] Start: 08-24-2020 End: 06-25-2023 History of Social function [employer] [facility] Start: 08-07-2023 End: 08-21-2023 Alcohol intake Lifetime non-drinker (finding) [facility] Start: 05-19-2023 End: 10-15-2023 Alcohol intake Current non-drinker of alcohol (finding) [facility] [employer] Has the [employer], [employer], [employer], or water company threatened to shut off services in your home in past 12Mo No [employer] How often to you hav e a drink containing alcohol? Never [employer] Medical Equipment Procedure Code Equipment Code Equipment Origin al Text Equipment Identifier Dates Phacoemulsification of cataract with intraocular lens implantation ()[id number] FDA Start: 08-12-2019 Phacoemulsification of cataract with intraocular lens implantation Posterior-chamber intraocular lens, pseudophakic ()[id number] FDA Start: 09-09-2019 Loop Recorder Karina schuler [facility] - [id number] - [id number] Start: 05-24-2016 System Cor Stnt 3.0mm X 12mm 145cm [employer] Harry - [id number] FDA Start: 02-15-2023 Goals Date Patient [...] Description: INTERVENTIONS: 1. Encourage patient or legal kiosk sales representative to report early pain and ask [...] per policy 9. Teach patient or legal kiosk sales representative interventions for comforting Outcome: Progressing Note: [...] at the bedside 7. Instruct patient/ patient kiosk sales representative about use of safety devices 8. Include patient/ patient kiosk sales representative in decisions related to safety Outcome: [...] hygiene technique 7. Identify and instruct patient/patient kiosk sales representative in use of appropriate isolation precautions for identified infection/symptoms 8. Provide and discuss with patient/patient kiosk sales representative on educational MDRO sheet 9. Encourage and monitor nutritional status daily and consult salesforce developer if indicated 10. Implement neutropenic guidelines as needed 11. Review exposure to history of communicable disease and recent travel history on admission 12. Encourage annual influenza vaccine 13. Encourage pneumonia vaccine Outcome: Progressing Note: Evaluation of progress towards goal: Patient remains free from infection due to hospitalization. Patient remains afebrile at this time. Problem: Knowledge Deficit Goal: Patient/patient kiosk sales representative demonstrates understanding of disease process, treatment plan, medications, and discharge instructions Description: INTERVENTIONS 1. Complete learning assessment and assess knowledge base 2. Provide teaching at level of understanding 3. Provide teaching via preferred learning method(s) Outcome: Progressing Note: Evaluation of progress towards goal: Patient demonstrates understanding of plan of care and treatment plan at this time. [facility] 10-15-2023 Miscellaneous Notes Problem: Pain Goal: Patient goal is pain score less than 4, able to rest, and participant in treatment plan as appropriate Description: INTERVENTIONS: 1. Encourage patient or legal kiosk sales representative to report early pain and ask [...] per policy 9. Teach patient or legal kiosk sales representative interventions for comforting Outcome: Progressing Note: [...] at the bedside 7. Instruct patient/ patient kiosk sales representative about use of safety devices 8. Include patient/ patient kiosk sales representative in decisions related to safety Outcome: [...] hygiene technique 7. Identify and instruct patient/patient kiosk sales representative in use of appropriate isolation precautions for identified infection/symptoms 8. Provide and discuss with patient/patient kiosk sales representative on educational MDRO sheet 9. Encourage and monitor nutritional status daily and consult salesforce developer if indicated 10. Implement neutropenic guidelines as needed 11. Review exposure to history of communicable disease and recent travel history on admission 12. Encourage annual influenza vaccine 13. Encourage pneumonia vaccine Outcome: Progressing Note: Evaluation of progress towards goal: Patient remains free from infection due to hospitalization. Patient remains afebrile at this time. Problem: Knowledge Deficit Goal: Patient/patient kiosk sales representative demonstrates understanding of disease process, treatment [...] Description: INTERVENTIONS: 1. Encourage patient or legal kiosk sales representative to report early pain and ask [...] per policy 9. Teach patient or legal kiosk sales representative interventions for comforting Outcome: Progressing Note: [...] at the bedside 7. Instruct patient/ patient kiosk sales representative about use of safety devices 8. Include patient/ patient kiosk sales representative in decisions related to safety Outcome: [...] hygiene technique 7. Identify and instruct patient/patient kiosk sales representative in use of appropriate isolation precautions for identified infection/symptoms 8. Provide and discuss with patient/patient kiosk sales representative on educational MDRO sheet 9. Encourage and monitor nutritional status daily and consult salesforce developer if indicated 10. Implement neutropenic guidelines as needed 11. Review exposure to history of communicable disease and recent travel history on admission 12. Encourage annual influenza vaccine 13. Encourage pneumonia vaccine Outcome: Progressing Note: Evaluation of progress towards goal: Pt afebrile and no outward signs of infection during shift. Problem: Knowledge Deficit Goal: Patient/patient kiosk sales representative demonstrates understanding of disease process, treatment [...] develop effective communication strategies 4. Include patient/patient kiosk sales representative in decisions related to communication Outcome: [...] Collaborate with ancillary departments 14. Include patient/patient kiosk sales representative in decisions related to anxiety Outcome: [...] 6. Collaborate with pastoral/spiritual care, social work msw, mental health counselor as needed. 7. Instruct patient on diversional activities such as physical activity, distraction, and deep breathing exercises to assist with coping 8. Involve patient's kiosk sales representative in care Outcome: Progressing Note: Evaluation [...] supplement as ordered 13. Collaborate with clinical salesforce developer 14. Include patient/ patient's kiosk sales representative in decisions related to nutrition Outcome: [...] Score of =/> 25 or indicated by [facility] Assessment Goal: Patient should be free from fall Description: Interventions: 1. [place] to environment 2. Hourly rounds addressing the [...] non-skid footwear 11. Teach patient and patient kiosk sales representative to maintain environment for safety and [...] (cane, walker) within reach 19. Request patient kiosk sales representative bring adaptive equipment/mobility aids from home or obtain and provide as needed 20. Consult pharmacy regarding effects of med's affecting mobility, cognition, and alternatives 21. Obtain physician order for PT if risk factors associated with mobility are present 22. Obtain physician order for OT as appropriate 23. Utilize diversional activities 24. Educate patient and patient kiosk sales representative how to maintain a safe environment during visitation times (notify nurse prior to leaving bedside) 25. Consider appropriateness of medical or non-emergency medical technician basic 26. Set up voiding schedule as appropriate (every 2 hours) Outcome: Progressing Note: Evaluation of progress towards goal: No signs of falls during shift. Problem: Pain Goal: Patient goal is pain score less than 4, able to rest, and participant in treatment plan as appropriate Description: INTERVENTIONS: 1. Encourage patient or legal kiosk sales representative to report early pain and ask [...] per policy 9. Teach patient or legal kiosk sales representative interventions for comforting Outcome: Progressing Note: [...] at the bedside 7. Instruct patient/ patient kiosk sales representative about use of safety devices 8. Include patient/ patient kiosk sales representative in decisions related to safety Outcome: [...] hygiene technique 7. Identify and instruct patient/patient kiosk sales representative in use of appropriate isolation precautions for identified infection/symptoms 8. Provide and discuss with patient/patient kiosk sales representative on educational MDRO sheet 9. Encourage and monitor nutritional status daily and consult salesforce developer if indicated 10. Implement neutropenic guidelines as needed 11. Review exposure to history of communicable disease and recent travel history on admission 12. Encourage annual influenza vaccine 13. Encourage pneumonia vaccine Outcome: Progressing Note: Evaluation of progress towards goal: Pt is afebrile at this time. Problem: Knowledge Deficit Goal: Patient/patient kiosk sales representative demonstrates understanding of disease process, treatment [...] Score of =/> 25 or indicated by [facility] Assessment Goal: Patient should be free from fall Description: Interventions: 1. [place] to environment 2. Hourly rounds addressing the [...] non-skid footwear 11. Teach patient and patient kiosk sales representative to maintain environment for safety and [...] (cane, walker) within reach 19. Request patient kiosk sales representative bring adaptive equipment/mobility aids from home or obtain and provide as needed 20. Consult pharmacy regarding effects of med's affecting mobility, cognition, and alternatives 21. Obtain physician order for PT if risk factors associated with mobility are present 22. Obtain physician order for OT as appropriate 23. Utilize diversional activities 24. Educate patient and patient kiosk sales representative how to maintain a safe environment during visitation times (notify nurse prior to leaving bedside) 25. Consider appropriateness of medical or non-emergency medical technician basic 26. Set up voiding schedule as appropriate (every 2 hours) Outcome: Progressing Note: Evaluation of progress towards goal: Pt is free from falls at this time. Pre Procedure Evaluation: H&P was reviewed and the patient was examined. No change has occurred in the patient's condition since the H&P was completed. 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 Encourage patient or legal kiosk sales representative to report early pain and ask [...] per policy 9. Teach patient or legal kiosk sales representative interventions for comforting Outcome: Progressing Note: [...] at the bedside 7. Instruct patient/ patient kiosk sales representative about use of safety devices 8. Include patient/ patient kiosk sales representative in decisions related to safety Outcome: [...] hygiene technique 7. Identify and instruct patient/patient kiosk sales representative in use of appropriate isolation precautions for identified infection/symptoms 8. Provide and discuss with patient/patient kiosk sales representative on educational MDRO sheet 9. Encourage and monitor nutritional status daily and consult salesforce developer if indicated 10. Implement neutropenic guidelines as needed 11. Review exposure to history of communicable disease and recent travel history on admission 12. Encourage annual influenza vaccine 13. Encourage pneumonia vaccine Outcome: Progressing Note: Evaluation of progress towards goal: Patient afebrile and WBC of 5.3. Will continue to monitor for signs of infection Problem: Knowledge Deficit Goal: Patient/patient kiosk sales representative demonstrates understanding of disease process, treatment [...] develop effective communication strategies 4. Include patient/patient kiosk sales representative in decisions related to communication Outcome: [...] supplement as ordered 13. Collaborate with clinical salesforce developer 14. Include patient/ patient's kiosk sales representative in decisions related to nutrition Outcome: Progressing Note: Evaluation of progress towards goal: Collaborating with interdisciplinary team to ensure adequate nutritional intake. Problem: Moderate - High Risk Fall Score Description: [place] Fall Score of =/> 25 or indicated by [facility] Assessment Goal: Patient should be free from fall Description: Interventions: 1. [place] to environment 2. Hourly rounds addressing the [...] non-skid footwear 11. Teach patient and patient kiosk sales representative to maintain environment for safety and [...] (cane, walker) within reach 19. Request patient kiosk sales representative bring adaptive equipment/mobility aids from home or obtain and provide as needed 20. Consult pharmacy regarding effects of med's affecting mobility, cognition, and alternatives 21. Obtain physician order for PT if risk factors associated with mobility are present 22. Obtain physician order for OT as appropriate 23. Utilize diversional activities 24. Educate patient and patient kiosk sales representative how to maintain a safe environment during visitation times (notify nurse prior to leaving bedside) 25. Consider appropriateness of medical or non-emergency medical technician basic 26. Set up voiding schedule as appropriate [...] Description: INTERVENTIONS: 1. Encourage patient or legal kiosk sales representative to report early pain and ask [...] per policy 9. Teach patient or legal kiosk sales representative interventions for comforting Outcome: Progressing Note: [...] at the bedside 7. Instruct patient/ patient kiosk sales representative about use of safety devices 8. Include patient/ patient kiosk sales representative in decisions related to safety Outcome: [...] hygiene technique 7. Identify and instruct patient/patient kiosk sales representative in use of appropriate isolation precautions for identified infection/symptoms 8. Provide and discuss with patient/patient kiosk sales representative on educational MDRO sheet 9. Encourage and monitor nutritional status daily and consult salesforce developer if indicated 10. Implement neutropenic guidelines as needed 11. Review exposure to history of communicable disease and recent travel history on admission 12. Encourage annual influenza vaccine 13. Encourage pneumonia vaccine Outcome: Progressing Note: Evaluation of progress towards goal: Pt is afebrile at this time. Problem: Knowledge Deficit Goal: Patient/patient kiosk sales representative demonstrates understanding of disease process, treatment [...] Score of =/> 25 or indicated by [facility] Assessment Goal: Patient should be free from fall Description: Interventions: 1. [place] to environment 2. Hourly rounds addressing the [...] non-skid footwear 11. Teach patient and patient kiosk sales representative to maintain environment for safety and [...] (cane, walker) within reach 19. Request patient kiosk sales representative bring adaptive equipment/mobility aids from home or obtain and provide as needed 20. Consult pharmacy regarding effects of med's affecting mobility, cognition, and alternatives 21. Obtain physician order for PT if risk factors associated with mobility are present 22. Obtain physician order for OT as appropriate 23. Utilize diversional activities 24. Educate patient and patient kiosk sales representative how to maintain a safe environment during visitation times (notify nurse prior to leaving bedside) 25. Consider appropriateness of medical or non-emergency medical technician basic 26. Set up voiding schedule as appropriate [...] Description: INTERVENTIONS: 1. Encourage patient or legal kiosk sales representative to report early pain and ask [...] per policy 9. Teach patient or legal kiosk sales representative interventions for comforting Outcome: Progressing Note: [...] at the bedside 7. Instruct patient/ patient kiosk sales representative about use of safety devices 8. Include patient/ patient kiosk sales representative in decisions related to safety Outcome: [...] hygiene technique 7. Identify and instruct patient/patient kiosk sales representative in use of appropriate isolation precautions for identified infection/symptoms 8. Provide and discuss with patient/patient kiosk sales representative on educational MDRO sheet 9. Encourage and monitor nutritional status daily and consult salesforce developer if indicated 10. Implement neutropenic guidelines as needed 11. Review exposure to history of communicable disease and recent travel history on admission 12. Encourage annual influenza vaccine 13. Encourage pneumonia vaccine Outcome: Progressing Note: Evaluation of progress towards goal: Pt afebrile and no outward signs of infection during shift. Problem: Knowledge Deficit Goal: Patient/patient kiosk sales representative demonstrates understanding of disease process, treatment [...] develop effective communication strategies 4. Include patient/patient kiosk sales representative in decisions related to communication Outcome: [...] Collaborate with ancillary departments 14. Include patient/patient kiosk sales representative in decisions related to anxiety Outcome: [...] 6. Collaborate with pastoral/spiritual care, social work msw, mental health counselor as needed. 7. Instruct patient on diversional activities such as physical activity, distraction, and deep breathing exercises to assist with coping 8. Involve patient's kiosk sales representative in care Outcome: Progressing Note: Evaluation [...] supplement as ordered 13. Collaborate with clinical salesforce developer 14. Include patient/ patient's kiosk sales representative in decisions related to nutrition Outcome: [...] Score of =/> 25 or indicated by [facility] Assessment Goal: Patient should be free from fall Description: Interventions: 1. [place] to environment 2. Hourly rounds addressing the [...] non-skid footwear 11. Teach patient and patient kiosk sales representative to maintain environment for safety and [...] (cane, walker) within reach 19. Request patient kiosk sales representative bring adaptive equipment/mobility aids from home or obtain and provide as needed 20. Consult pharmacy regarding effects of med's affecting mobility, cognition, and alternatives 21. Obtain physician order for PT if risk factors associated with mobility are present 22. Obtain physician order for OT as appropriate 23. Utilize diversional activities 24. Educate patient and patient kiosk sales representative how to maintain a safe environment during visitation times (notify nurse prior to leaving bedside) 25. Consider appropriateness of medical or non-emergency medical technician basic 26. Set up voiding schedule as appropriate (every 2 hours) Outcome: Progressing Note: Evaluation of progress towards goal: No signs of falls during shift. documented in this encounter [facility] 10-15-2023 Hospital course Narrative Inpatient Discharge Summary BRIEF OVERVIEW Admitting Provider: Jonathan Pizarro DO Discharge Provider: Jonathan Pizarro DO Primary Care Physician at Discharge: TUSHAR SOLANO JR, DO [phone] Admission Date: 10/12/2023 Discharge Date: No discharge [...] Provider Department Center 10/16/2023 1:30 PM Genet Samll DO [facility] 11/13/2023 2:30 PM [facility]errals and Follow-ups to Schedule No dressing needed [facility] [place], [place] DETAILS OF HOSPITAL STAY Presenting Problem/History of [...] Your Medications These medications were sent to [facility]/pharmacy #[id number] [place] [id number] bisoprolol 5 mg tablet collagenase ointment dapagliflozin propanediol 10 mg tablet sacubitriL-valsartan 24-26 mg tablet spironolactone 25 mg tablet Kallie Roman MD PGY-3, Internal Medicine [facility] Associated attestation - Anup Reed MD - [...] in 1 week documented in this encounter [facility] 10-15-2023 Hospital Discharge instructions Kallie Roman [...] week of discharge documented in this encounter [facility] [employer] 10-15-2023 History of Present illness Narrative Images [...] Results from last 7 days Lab Units 10/15/23 0254 10/14/23 0314 10/13/23 0326 WBC X10E9/L 7.3 8.4 5.3 HEMOGLOBIN g/dL 12.7 12.7 12.5 13.2 HEMATOCRIT % 38.1 37.7 39.2 MCV fL 103* 104* 103* PLATELETS X10E9/L 229 219 207 176 BMP: Results from last 7 days Lab Units 10/15/23 0254 10/14/23 0314 10/13/23 1409 10/13/23 0642 10/13/23 0326 POTASSIUM mmol/L 4.8 4.4 [...] Results from last 7 days Lab Units 10/15/23 0254 10/14/23 0314 10/13/23 0326 MAGNESIUM mg/dL 1.8 1.8 1.1* Troponin I Results from last 7 days Lab Units 10/13/23 1409 10/13/23 0326 10/13/23 0037 TROPONIN I ng/mL 9.76* [...] RCA in 2014. She also went to [facility] and had orbital arthrectomy of the circumflex, PCI of the distal circumflex, PCI of the mid to distal circumflex was overlapping stents and PCI proximal circumflex in 2020. She then locally had HARRY to circumflex 02/15/2023, prior stent to the LAD in 2007, prior CVA hypotension on chronic midodrine. Patient initially presented to [facility] with generalized weakness and shortness of breath. She was found to [place] decomp[place]ated [place] [address] as well as high sensitivity troponin greater than 26,000. Potassium was profoundly low at 2.6. She was transferred to [facility] for further management. She had a [...] 1409 10/13/23 0642 10/13/23 0326 10/13/23 0037 SODIUM mmol/L 141 -- -- 143 [...] be continued indefinitely given significant disease in [place] coronary arteries. Optimize medical therapy for coronary [...] be continued indefinitely given significant disease in [place] coronary arteries. Optimize medical therapy for coronary artery disease. Post percutaneous coronary intervention orders Remove sheath 2.5 hours after stopping Angiomax drip. Family updated CHER Mccoy APRN-CNP 10/14/23 1001 Images from the original note were not included. [facility] PROGRESS NOTE Ashvin Rene is a 67 y.o. 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 Optimize medical therapy for coronary [...] be continued indefinitely given significant disease in [place] coronary arteries. Optimize medical therapy for coronary [...] for the last 168 hours. CURRENT MEDICATIONS [Sep] aspirin, 81 mg, oral, Daily [SEP Hold] clopidogreL, 75 mg, oral, Daily [SEP Hold] collagenase, 1 Application, topical, Daily [SEP Hold] furosemide, 40 mg, intravenous, Q12H [SEP Hold] magnesium sulfate, 2,000 mg, intravenous, Once [SEP Hold] metoprolol succinate XL, 25 mg, oral, Daily [SEP Hold] ranolazine, 1,000 mg, oral, BID [SEP Hold] rosuvastatin, 20 mg, oral, Daily [SEP Hold] spironolactone, 25 mg, oral, Daily CONTINUOUS INFUSIONS [SEP Hold] dextrose 5 % in water, 100 mL/hr [Sep] heparin, 300-3,500 Units/hr, Last Rate: 700 Units/hr (10/14/23 0649) [SEP Hold] sodium chloride 0.9 %, 10 mL/hr [SEP Hold] sodium chloride 0.9 %, 10 mL/hr [SEP Hold] sodium chloride 0.9 %, 10 mL/hr NEEDED MEDICATIONS [SEP Hold] acetaminophen aspirin [SEP Hold] calcium gluconate OR [SEP Hold] calcium gluconate OR [SEP Hold] calcium gluconate [SEP Hold] dextrose [SEP Hold] dextrose 5 % in water [SEP Hold] dextrose 50 % in water (D50W) [SEP Hold] predniSONE AND [SEP Hold] diphenhydrAMINE [SEP Hold] glucagon (human recombinant) [SEP Hold] heparin (porcine) [SEP Hold] magnesium sulfate OR [SEP Hold] magnesium sulfate [SEP Hold] midodrine [SEP Hold] potassium chloride OR [SEP Hold] potassium chloride [SEP Hold] potassium chloride in water OR [SEP Hold] potassium chloride in water [SEP Hold] sodium phosphate IV OR [SEP Hold] sodium phosphate IV - central line OR [SEP Hold] sod phos di, mono-K phos mono [SEP Hold] sodium chloride 0.9 % [SEP Hold] sodium chloride 0.9 % [SEP Hold] sodium chloride 0.9 % Allergies: Allergies [...] Tejeda MD Resident, PGY-1 10/14/23 7:39 AM [facility] This note was completed using a voice applied psychology professor system. Every effort was made to ensure accuracy. However, inadvertent computerized applied psychology professor errors may be present. Associated attestation - Anpu Reed MD - 10/14/2023 4:04 PM EDT Images from the original note were not included. Progress Note Patient Name: Ashvin Rene : 1955 10/14/2023 4:03 PM I, Anup Reed MD, personally performed [...] from last 7 days Lab Units 10/14/23 03110/13/23 03210/13/23 0037 WBC X10E9/L 8.4 5.3 -- HEMOGLOBIN g/dL 12.5 13.2 12.8 HEMATOCRIT % 37.7 39.2 -- MCV fL 104* 103* -- PLATELETS X10E9/L 207 176 158 BMP: Results from last 7 days Lab Units 10/14/23 0314 10/13/23 1409 10/13/23 0642 10/13/23 03210/13/23 0037 POTASSIUM mmol/L 4.4 4.5 3.1* 3.4* 3.4* CHLORIDE mmol/L 100 -- -- 100 100 CO2 mmol/L 30 -- -- 30 30 BUN mg/dL 22 -- -- 16 16 CREATININE mg/dL 1.05* -- -- 0.79 0.88 PT/INR: Results from last 7 days Lab Units 10/13/23 0037 PROTIME sec 16.6* INR 1.4* MAG: Results from last 7 days Lab Units 10/14/2331310/13/23 0326 MAGNESIUM mg/dL 1.8 1.1* Troponin I Results from last 7 days Lab Units 10/13/23 1409 10/13/2332510/13/23 0037 TROPONIN I ng/mL 9.76* 13.09* 13.88* [...] Units 10/13/23 1409 10/13/23 0642 10/13/23 0326 10/13/23 0037 POTASSIUM mmol/L 4.5 3.1* 3.4* 3.4* CHLORIDE mmol/L -- -- 100 100 CO2 mmol/L -- -- 30 30 BUN mg/dL -- -- 16 16 CREATININE mg/dL -- -- 0.79 0.88 PT/INR: Results from last 7 days Lab Units 10/13/23 0037 PROTIME sec 16.6* INR 1.4* MAG: Results from last 7 days Lab Units 10/13/23 0326 MAGNESIUM mg/dL 1.1* Troponin I Results from last 7 days Lab Units 10/13/23 1409 10/13/23 0326 10/13/23 0037 TROPONIN I ng/mL 9.76* [...] his on midodrine, hold on afterload reduction/ARB/ARNI [facility] PROGRESS NOTE Ashvin Rene is a 67 y.o. 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 Distal right coronary artery has diffuse disease in small caliber vessel not amenable to percutaneous coronary intervention. Occluded LAD, occluded right coronary artery Recommendation Dual antiplatelet therapy including aspirin and Plavix plaque should be continued indefinitely given significant disease in [place] coronary arteries. Optimize medical therapy for coronary [...] be continued indefinitely given significant disease in [place] coronary arteries. Optimize medical therapy for coronary [...] of 35-40% Atherosclerotic heart disease of the [place] coronary arteries with stable angina pectoris History of CABG and subsequent HARRY Profound hypokalemia 2.1 in the ER at [facility] receiving replacements PLAN - plan for diagnostic cath tomorrow - aspirin and Plavix - replace potassium - continue ranexa - Continue rosuvastatin 20 mg - continue aldactone -advance diet as tolerated - Luciano Tejeda MD Resident, PGY-1 10/13/23 4:08 PM [facility] This note was completed using a voice applied psychology professor system. Every effort was made to ensure accuracy. However, inadvertent computerized applied psychology professor errors may be present. Associated attestation - Anup Reed MD - 10/13/2023 4:47 PM EDT See my separate note documented in this encounter [facility] 10-15-2023 Note XR CHEST 1 VW Procedure: Chest x-ray performed Number of views:AP view History:Hypoxia Comparison:10/12/2023 Findings: The heart and mediastinal silhouette are stable. There is pulmonary vascular congestion. There are no focal consolidations. There is a small left pleural effusion. There is no pneumothorax Impression: Pulmonary vascular congestion. Finalized by Kay Dunn DO on 10/15/2023 10:48 AM [facility] 10-15-2023 Note Procedure: Chest x-ray performed Number of views:AP view History:Hypoxia Comparison:10/12/2023 Findings: The heart and mediastinal silhouette are stable. There is pulmonary vascular congestion. There are no focal consolidations. There is a small left pleural effusion. There is no pneumothorax Impression: Pulmonary vascular congestion. Finalized by Kay Dunn DO on 10/15/2023 10:48 AM [facility] 10-14-2023 Plan of care note Problem: Pain Goal: Patient goal is pain score less than 4, able to rest, and participant in treatment plan as appropriate Description: INTERVENTIONS: 1. Encourage patient or legal kiosk sales representative to report early pain and ask [...] per policy 9. Teach patient or legal kiosk sales representative interventions for comforting Outcome: Progressing Note: [...] at the bedside 7. Instruct patient/ patient kiosk sales representative about use of safety devices 8. Include patient/ patient kiosk sales representative in decisions related to safety Outcome: [...] hygiene technique 7. Identify and instruct patient/patient kiosk sales representative in use of appropriate isolation precautions for identified infection/symptoms 8. Provide and discuss with patient/patient kiosk sales representative on educational MDRO sheet 9. Encourage and monitor nutritional status daily and consult salesforce developer if indicated 10. Implement neutropenic guidelines as needed 11. Review exposure to history of communicable disease and recent travel history on admission 12. Encourage annual influenza vaccine 13. Encourage pneumonia vaccine Outcome: Progressing Note: Evaluation of progress towards goal: Pt afebrile and no outward signs of infection during shift. Problem: Knowledge Deficit Goal: Patient/patient kiosk sales representative demonstrates understanding of disease process, treatment [...] develop effective communication strategies 4. Include patient/patient kiosk sales representative in decisions related to communication Outcome: [...] Collaborate with ancillary departments 14. Include patient/patient kiosk sales representative in decisions related to anxiety Outcome: [...] 6. Collaborate with pastoral/spiritual care, social work msw, mental health counselor as needed. 7. Instruct patient on diversional activities such as physical activity, distraction, and deep breathing exercises to assist with coping 8. Involve patient's kiosk sales representative in care Outcome: Progressing Note: Evaluation [...] supplement as ordered 13. Collaborate with clinical salesforce developer 14. Include patient/ patient's kiosk sales representative in decisions related to nutrition Outcome: [...] Moderate - High Risk Fall Score Description: [place] Fall Score of =/> 25 or indicated by [facility] Assessment Goal: Patient should be free from fall Description: Interventions: 1. [place] to environment 2. Hourly rounds addressing the [...] non-skid footwear 11. Teach patient and patient kiosk sales representative to maintain environment for safety and [...] (cane, walker) within reach 19. Request patient kiosk sales representative bring adaptive equipment/mobility aids from home or obtain and provide as needed 20. Consult pharmacy regarding effects of med's affecting mobility, cognition, and alternatives 21. Obtain physician order for PT if risk factors associated with mobility are present 22. Obtain physician order for OT as appropriate 23. Utilize diversional activities 24. Educate patient and patient kiosk sales representative how to maintain a safe environment during visitation times (notify nurse prior to leaving bedside) 25. Consider appropriateness of medical or non-emergency medical technician basic 26. Set up voiding schedule as appropriate (every 2 hours) Outcome: Progressing Note: Evaluation of progress towards goal: No signs of falls during shift. [facility] 10-14-2023 Plan of care note Problem: Pain Goal: Patient goal is pain score less than 4, able to rest, and participant in treatment plan as appropriate Description: INTERVENTIONS: 1. Encourage patient or legal kiosk sales representative to report early pain and ask [...] per policy 9. Teach patient or legal kiosk sales representative interventions for comforting Outcome: Progressing Note: [...] at the bedside 7. Instruct patient/ patient kiosk sales representative about use of safety devices 8. Include patient/ patient kiosk sales representative in decisions related to safety Outcome: [...] hygiene technique 7. Identify and instruct patient/patient kiosk sales representative in use of appropriate isolation precautions for identified infection/symptoms 8. Provide and discuss with patient/patient kiosk sales representative on educational MDRO sheet 9. Encourage and monitor nutritional status daily and consult salesforce developer if indicated 10. Implement neutropenic guidelines as needed 11. Review exposure to history of communicable disease and recent travel history on admission 12. Encourage annual influenza vaccine 13. Encourage pneumonia vaccine Outcome: Progressing Note: Evaluation of progress towards goal: Pt is afebrile at this time. Problem: Knowledge Deficit Goal: Patient/patient kiosk sales representative demonstrates understanding of disease process, treatment [...] Score of =/> 25 or indicated by [facility] Assessment Goal: Patient should be free from fall Description: Interventions: 1. [place] to environment 2. Hourly rounds addressing the [...] non-skid footwear 11. Teach patient and patient kiosk sales representative to maintain environment for safety and [...] (cane, walker) within reach 19. Request patient kiosk sales representative bring adaptive equipment/mobility aids from home or obtain and provide as needed 20. Consult pharmacy regarding effects of med's affecting mobility, cognition, and alternatives 21. Obtain physician order for PT if risk factors associated with mobility are present 22. Obtain physician order for OT as appropriate 23. Utilize diversional activities 24. Educate patient and patient kiosk sales representative how to maintain a safe environment during visitation times (notify nurse prior to leaving bedside) 25. Consider appropriateness of medical or non-emergency medical technician basic 26. Set up voiding schedule as appropriate (every 2 hours) Outcome: Progressing Note: Evaluation of progress towards goal: Pt is free from falls at this time. [facility] 10-14-2023 Procedure note Pre Procedure Evaluation: H&P was reviewed and the patient was examined. No change has occurred in the patient's condition since the H&P was completed. 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 Chest Pain Symptom Assessment: typical Cardiovascular Instability: No Heart Failure: Yes Congestive Heart Failure (NYHA Classification within 2 weeks): III Heart Failure Newly Diagnosed: No Heart Failure Type: Systolic Electrocardiac Assessment Method: None Stress Test Performed: No Cardiac CTA: No [facility] Clinical Frailty Scale (Assessment immediately prior to procedure): 6: Moderately Frail Cardiac Arrest Out of Hospital: No Cardiac Arrest at Transferring Facility: No [facility] 10-14-2023 Attending History and physical note HISTORY AND PHYSICAL INTERVAL NOTE: Ashvin Rene [id number] H&P reviewed. The patient was examined and there are no changes to the H&P. Alexi Freeman MD Source Note - Lenny Rodriguez MD - 10/12/2023 11:49 PM EDT Images from the original note were not included. [facility] [address] [place] [address] HISTORY & PHYSICAL / CONSULT NOTE Ashvin [...] found to be in CHF with proBNP 18841, HS trop 85913, and K 2.1 which was repleted but [...] Past Medical History: Diagnosis Date Angina pectoris [place] Atherosclerosis of coronary artery bypass graft Atherosclerotic heart disease Coronary angioplasty status Coronary artery disease CVA (cerebral vascular accident) ([facility] Dyspnea Hyperlipidemia Hypertension Hypotension Other chest pain Stroke ([facility]) Previous Surgical History: Past Surgical History: Procedure Laterality Date CARDIAC CATHETERIZATION Cardiac catheterization N/A 02/15/2023 Performed by Star Espinosa MD at [facility] Cardiac catheterization - LV cors w/graft check N/A 10/25/2020 Performed by Alexi Freeman MD at [facility] Coronary angiogram and graft/[place] N/A 02/15/2023 Performed by Star Espinosa MD at [facility] Coronary angiogram and left ventricular gram/pressure + graft/[place] N/A 10/25/2020 Performed by Alexi Freeman MD at [facility] Coronary angiogram and left ventricular gram/pressure + graft/[place] N/A 06/18/2016 Performed by Alexi Freeman MD at [facility] CORONARY ANGIOPLASTY 12/08/2020 orbital atherectomy and 2 HARRY to prox and distal Circ, at [facility] per Dr. Madhav Ugalde CORONARY ARTERY BYPASS GRAFT 09/08/2014 HYSTERECTOMY INSERTION LOOP RECORDER 05/24/2016 Percutaneous coronary angioplasty left circumflex N/A 02/15/2023 Performed by Star Espinosa MD at [facility] Stent drug-eluting left circumflex N/A 02/15/2023 Performed by Star Espinosa MD at [facility] Allergies: Allergies Allergen [...] 15 g 15 g oral PRN Parul John APRN-SUNIL dextrose 5 % (D5W) infusion 100 mL/hr intravenous Continuous PRN CHER Rincon dextrose 50 % in water (D50W) 50% solution 25 mL 25 mL intravenous PRN Parul John APRN-SUNIL glucagon HCL injection 1 mg 1 mg intramuscular PRN CHER Rincon heparin (porcine) injection 2,000 Units 2,000 Units intravenous PRN CHER Rincon [START ON 10/13/2023] heparin infusion 71093 units/500 mL in 0.45% NaCl (50 units/mL premix) 300-3,500 Units/hr intravenous Continuous CHER Rincon magnesium sulfate IVPB 2000 mg/50 mL in iso-osmotic water (40 mg/mL premix) 2,000 mg intravenous PRN Parul R Jeb, CHARTER BUS DRIVER-OIL SPRAYING MACHINE OPERATOR Or magnesium sulfate IVPB 4000 mg/100 mL in iso-osmotic water (40 mg/mL premix) 4,000 mg intravenous PRN Parul R Jeb, CHARTER BUS DRIVER-OIL SPRAYING MACHINE OPERATOR potassium chloride (K-TAB,KLOR-CON) CR tablet 20-50 mEq 20-50 mEq oral PRN Parul R Jeb, CHARTER BUS DRIVER-OIL SPRAYING MACHINE OPERATOR Or potassium chloride (KAYCIEL) 20 mEq/15 mL solution 20-50 mEq 20-50 mEq oral PRN Parul R Jeb, CHARTER BUS DRIVER-OIL SPRAYING MACHINE OPERATOR potassium chloride IVPB 10 mEq/50 mL in water (0.2 mEq/mL premix) 10 mEq intravenous PRN Parul R Jeb, CHARTER BUS DRIVER-OIL SPRAYING MACHINE OPERATOR Or potassium chloride IVPB 10 mEq/100 mL in water (0.1 mEq/mL premix) 10 mEq intravenous PRN Parul R Jeb, CHARTER BUS DRIVER-OIL SPRAYING MACHINE OPERATOR sodium phosphate 20 mmol in sodium chloride 0.9 % 250 mL IVPB 20 mmol intravenous PRN Parul R Jeb, CHARTER BUS DRIVER-OIL SPRAYING MACHINE OPERATOR Or sodium phosphate 20 mmol in sodium chloride 0.9 % 100 mL IVPB 20 mmol intravenous PRN Parul R Jeb, CHARTER BUS DRIVER-OIL SPRAYING MACHINE OPERATOR Or sod phos di, mono-K phos mono (K-PHOS NEUTRAL) 250 mg tablet 2 tablet 2 tablet oral PRN Parul R Jeb, CHARTER BUS DRIVER-OIL SPRAYING MACHINE OPERATOR sodium chloride 0.9 % infusion 10 mL/hr intravenous Continuous PRN Parul R Jeb, CHARTER BUS DRIVER-OIL SPRAYING MACHINE OPERATOR sodium chloride 0.9 % infusion 10 mL/hr intravenous Continuous PRN Parul R Jeb, CHARTER BUS DRIVER-OIL SPRAYING MACHINE OPERATOR sodium chloride 0.9 % infusion 10 mL/hr intravenous Continuous PRN Parul R Jeb, CHARTER BUS DRIVER-OIL SPRAYING MACHINE OPERATOR Home Meds: Prior to Admission medications Medication [...] be continued indefinitely given significant disease in [place] coronary arteries. Optimize medical therapy for coronary [...] be continued indefinitely given significant disease in [place] coronary arteries. Optimize medical therapy for coronary [...] Acute on chronic HFrEF Elevated HS troponin 19716 ASCVD h/o CABG and s/p PCI Cx [...] 75 mg oral Daily Parul R Jeb, CHARTER BUS DRIVER-OIL SPRAYING MACHINE OPERATOR dextrose (GLUTOSE) 40 % gel 15 g 15 g oral PRN Parul Holder Jeb, CHARTER BUS DRIVER-OIL SPRAYING MACHINE OPERATOR dextrose 5 % (D5W) infusion 100 mL/hr intravenous Continuous PRN Parul Hassann, CHARTER BUS DRIVER-OIL SPRAYING MACHINE OPERATOR dextrose 50 % in water (D50W) 50% solution 25 mL 25 mL intravenous PRN Parul R Jeb, CHARTER BUS DRIVER-OIL SPRAYING MACHINE OPERATOR glucagon HCL injection 1 mg 1 mg intramuscular PRN Parul Holder Jeb, CHARTER BUS DRIVER-OIL SPRAYING MACHINE OPERATOR heparin (porcine) injection 2,000 Units 2,000 Units intravenous PRN Parul R Jeb, CHARTER BUS DRIVER-OIL SPRAYING MACHINE OPERATOR heparin infusion 58007 units/500 mL in 0.45% NaCl (50 units/mL premix) 300-3,500 Units/hr intravenous Continuous Parul Holder Jeb, CHARTER BUS DRIVER-OIL SPRAYING MACHINE OPERATOR 16 mL/hr at 10/13/23 0013 800 Units/hr at 10/13/23 0013 magnesium sulfate IVPB 2000 mg/50 mL in iso-osmotic water (40 mg/mL premix) 2,000 mg intravenous PRN Parul R Jeb, CHARTER BUS DRIVER-OIL SPRAYING MACHINE OPERATOR Or magnesium sulfate IVPB 4000 mg/100 mL in iso-osmotic water (40 mg/mL premix) 4,000 mg intravenous PRN Parul Hassann, CHARTER BUS DRIVER-OIL SPRAYING MACHINE OPERATOR midodrine (PROAMATINE) tablet 5 mg 5 mg oral Q8H PRN Parul R Jeb, CHARTER BUS DRIVER-OIL SPRAYING MACHINE OPERATOR potassium chloride (K-TAB,KLOR-CON) CR tablet 20-50 mEq 20-50 mEq oral PRN Parul Holder Jeb, CHARTER BUS DRIVER-OIL SPRAYING MACHINE OPERATOR Or potassium chloride (KAYCIEL) 20 mEq/15 mL solution 20-50 mEq 20-50 mEq oral PRN Parul R Jeb, CHARTER BUS DRIVER-OIL SPRAYING MACHINE OPERATOR potassium chloride IVPB 10 mEq/50 mL in water (0.2 mEq/mL premix) 10 mEq intravenous PRN Parul R Jeb, CHARTER BUS DRIVER-OIL SPRAYING MACHINE OPERATOR Or potassium chloride IVPB 10 mEq/100 mL in water (0.1 mEq/mL premix) 10 mEq intravenous PRN Parul R Jeb, CHARTER BUS DRIVER-OIL SPRAYING MACHINE OPERATOR ranolazine (RANEXA) 12 hr tablet 1,000 mg 1,000 mg oral BID Parul R Jeb, CHARTER BUS DRIVER-OIL SPRAYING MACHINE OPERATOR rosuvastatin (CRESTOR) tablet 20 mg 20 mg oral Daily Parul R Jeb, CHARTER BUS DRIVER-OIL SPRAYING MACHINE OPERATOR sodium phosphate 20 mmol in sodium chloride 0.9 % 250 mL IVPB 20 mmol intravenous PRN Parul R Jeb, CHARTER BUS DRIVER-OIL SPRAYING MACHINE OPERATOR Or sodium phosphate 20 mmol in sodium chloride 0.9 % 100 mL IVPB 20 mmol intravenous PRN Parul R Jeb, CHARTER BUS DRIVER-OIL SPRAYING MACHINE OPERATOR Or sod phos di, mono-K phos mono (K-PHOS NEUTRAL) 250 mg tablet 2 tablet 2 tablet oral PRN Parul R Jeb, CHARTER BUS DRIVER-OIL SPRAYING MACHINE OPERATOR sodium chloride 0.9 % infusion 10 mL/hr intravenous Continuous PRN Parul R Jeb, CHARTER BUS DRIVER-OIL SPRAYING MACHINE OPERATOR sodium chloride 0.9 % infusion 10 mL/hr intravenous Continuous PRN Parul R Jeb, CHARTER BUS DRIVER-OIL SPRAYING MACHINE OPERATOR sodium chloride 0.9 % infusion 10 mL/hr intravenous Continuous PRN Parul R Jeb, CHARTER BUS DRIVER-OIL SPRAYING MACHINE OPERATOR Laboratory CBC: BMP: Troponin I Physical Exam [...] This note was completed using a voice applied psychology professor system. Every effort was made to ensure accuracy. However, inadvertent computerized applied psychology professor errors may be present. [employer] Work Phone: 10-14-2023 History and physical note HISTORY AND PHYSICAL INTERVAL NOTE: Ashvin Rene [id number] H&P reviewed. The patient was examined and there are no changes to the H&P. Alexi Freeman MD Source Note - Lenny Rodriguez MD - 10/12/2023 11:49 PM EDT Images from the original note were not included. [facility] [address] [place] [address] HISTORY & PHYSICAL / CONSULT NOTE Ashvin [...] found to be in CHF with proBNP 67822, HS trop 43231, and K 2.1 which was repleted but [...] Past Medical History: Diagnosis Date Angina pectoris ([facility]) Atherosclerosis of coronary artery bypass graft Atherosclerotic heart disease Coronary angioplasty status Coronary artery disease CVA (cerebral vascular accident) ([facility]) Dyspnea Hyperlipidemia Hypertension Hypotension Other chest pain Stroke ([facility]) Previous Surgical History: Past Surgical History: Procedure Laterality Date CARDIAC CATHETERIZATION Cardiac catheterization N/A 02/15/2023 Performed by Star Espinosa MD at [facility] Cardiac catheterization - LV cors w/graft check N/A 10/25/2020 Performed by Alexi Freeman MD at [facility] Coronary angiogram and graft/[place] N/A 02/15/2023 Performed by Star Espinosa MD at [facility] Coronary angiogram and left ventricular gram/pressure + graft/[place] N/A 10/25/2020 Performed by Alexi Freeman MD at [facility] Coronary angiogram and left ventricular gram/pressure + graft/[place] N/A 06/18/2016 Performed by Alexi Freeman MD at [facility] CORONARY ANGIOPLASTY 12/08/2020 orbital atherectomy and 2 HARRY to prox and distal Circ, at [facility] per Dr. Madhav Ugalde CORONARY ARTERY BYPASS GRAFT 09/08/2014 HYSTERECTOMY INSERTION LOOP RECORDER 05/24/2016 Percutaneous coronary angioplasty left circumflex N/A 02/15/2023 Performed by Star Espinosa MD at [facility] Stent drug-eluting left circumflex N/A 02/15/2023 Performed by Star Espinosa MD at [facility] Allergies: Allergies Allergen Reactions Aspirin-Dipyridamole aggronox Atorvastatin Hives lipitor Cefadroxil duricef Codeine Fenofibrate Micronized tricor Fluvoxamine luvox Nefazodone serzone Niacin Other reaction(s): Intolerance-unknown Hospital Meds: Current Facility-Administered Medications Medication Dose Route Frequency Provider Last Rate Last Admin calcium gluconate IVPB 1000 mg/50 mL (20 mg/mL premix) 1,000 mg intravenous PRN Parul John APRN-OIL SPRAYING MACHINE OPERATOR Or calcium gluconate IVPB 2000 mg/100 mL (20 mg/mL premix) 2,000 mg intravenous PRN Parul John, CHARTER BUS DRIVER-OIL SPRAYING MACHINE OPERATOR Or calcium gluconate 3,000 mg in sodium chloride 0.9 % 100 mL IVPB 3,000 mg intravenous PRN Parul John CHARTER BUS DRIVER-OIL SPRAYING MACHINE OPERATOR dextrose (GLUTOSE) 40 % gel 15 g 15 g oral PRN Parul John CHARTER BUS DRIVER-OIL SPRAYING MACHINE OPERATOR dextrose 5 % (D5W) infusion 100 mL/hr intravenous Continuous PRN Parul John CHARTER BUS DRIVER-OIL SPRAYING MACHINE OPERATOR dextrose 50 % in water (D50W) 50% solution 25 mL 25 mL intravenous PRN Parul R Jeb, CHARTER BUS DRIVER-OIL SPRAYING MACHINE OPERATOR glucagon HCL injection 1 mg 1 mg intramuscular PRN Parul R Jeb, CHARTER BUS DRIVER-OIL SPRAYING MACHINE OPERATOR heparin (porcine) injection 2,000 Units 2,000 Units intravenous PRN Parul R Jeb, CHARTER BUS DRIVER-OIL SPRAYING MACHINE OPERATOR [START ON 10/13/2023] heparin infusion 60160 units/500 mL in 0.45% NaCl (50 units/mL premix) 300-3,500 Units/hr intravenous Continuous Parul R Jeb, CHARTER BUS DRIVER-OIL SPRAYING MACHINE OPERATOR magnesium sulfate IVPB 2000 mg/50 mL in iso-osmotic water (40 mg/mL premix) 2,000 mg intravenous PRN Parul R Jeb, CHARTER BUS DRIVER-OIL SPRAYING MACHINE OPERATOR Or magnesium sulfate IVPB 4000 mg/100 mL in iso-osmotic water (40 mg/mL premix) 4,000 mg intravenous PRN Parul R Jeb, CHARTER BUS DRIVER-OIL SPRAYING MACHINE OPERATOR potassium chloride (K-TAB,KLOR-CON) CR tablet 20-50 mEq 20-50 mEq oral PRN Parul R Jeb, CHARTER BUS DRIVER-OIL SPRAYING MACHINE OPERATOR Or potassium chloride (KAYCIEL) 20 mEq/15 mL solution 20-50 mEq 20-50 mEq oral PRN Parul R Jeb, CHARTER BUS DRIVER-OIL SPRAYING MACHINE OPERATOR potassium chloride IVPB 10 mEq/50 mL in water (0.2 mEq/mL premix) 10 mEq intravenous PRN Parul R Jeb, CHARTER BUS DRIVER-OIL SPRAYING MACHINE OPERATOR Or potassium chloride IVPB 10 mEq/100 mL in water (0.1 mEq/mL premix) 10 mEq intravenous PRN Parul R Jeb, CHARTER BUS DRIVER-OIL SPRAYING MACHINE OPERATOR sodium phosphate 20 mmol in sodium chloride 0.9 % 250 mL IVPB 20 mmol intravenous PRN Parul R Jeb, CHARTER BUS DRIVER-OIL SPRAYING MACHINE OPERATOR Or sodium phosphate 20 mmol in sodium chloride 0.9 % 100 mL IVPB 20 mmol intravenous PRN Parul R Jeb, CHARTER BUS DRIVER-OIL SPRAYING MACHINE OPERATOR Or sod phos di, mono-K phos mono (K-PHOS NEUTRAL) 250 mg tablet 2 tablet 2 tablet oral PRN Parul R Jeb, CHARTER BUS DRIVER-OIL SPRAYING MACHINE OPERATOR sodium chloride 0.9 % infusion 10 mL/hr intravenous Continuous PRN Parul R Jeb, CHARTER BUS DRIVER-OIL SPRAYING MACHINE OPERATOR sodium chloride 0.9 % infusion 10 mL/hr intravenous Continuous PRN Parul R Jeb, CHARTER BUS DRIVER-OIL SPRAYING MACHINE OPERATOR sodium chloride 0.9 % infusion 10 mL/hr intravenous Continuous PRN CHER Rincon Home Meds: Prior to Admission medications Medication [...] 30 MINS BEFORE BREAKFAST. Tushar Solano Jr., pregabalin (LYRICA) 50 mg capsule Take 1 [...] be continued indefinitely given significant disease in [place] coronary arteries. Optimize medical therapy for coronary [...] be continued indefinitely given significant disease in [place] coronary arteries. Optimize medical therapy for coronary [...] Acute on chronic HFrEF Elevated HS troponin 12306 ASCVD h/o CABG and s/p PCI Cx 03/05 Ischemic cardiomyopathy EF 35-40% Hypokalemia Chronic hypotension on midodrine Dyslipidemia Trend troponins Recheck electrolytes IV diuresis Continue Heparin gtt Continue DAPT Unable to titrate GDMT given HOTN Recheck echo PARUL JOHN APRN-CHER Marte 10/13/23 0016 [facility], LENNY [...] tablet 81 mg 81 mg oral Daily Parul John, CHARTER BUS DRIVER-OIL SPRAYING MACHINE OPERATOR calcium gluconate IVPB 1000 mg/50 mL (20 mg/mL premix) 1,000 mg intravenous PRN Parul Hassann, CHARTER BUS DRIVER-OIL SPRAYING MACHINE OPERATOR Or calcium gluconate IVPB 2000 mg/100 mL (20 mg/mL premix) 2,000 mg intravenous PRN Parul Hassann, CHARTER BUS DRIVER-OIL SPRAYING MACHINE OPERATOR Or calcium gluconate 3,000 mg in sodium chloride 0.9 % 100 mL IVPB 3,000 mg intravenous PRN Parul oJhn, CHARTER BUS DRIVER-OIL SPRAYING MACHINE OPERATOR clopidogreL (PLAVIX) tablet 75 mg 75 mg oral Daily Parul John, CHARTER BUS DRIVER-OIL SPRAYING MACHINE OPERATOR dextrose (GLUTOSE) 40 % gel 15 g 15 g oral PRN Parul John, CHARTER BUS DRIVER-OIL SPRAYING MACHINE OPERATOR dextrose 5 % (D5W) infusion 100 mL/hr intravenous Continuous PRN Parul John, CHARTER BUS DRIVER-OIL SPRAYING MACHINE OPERATOR dextrose 50 % in water (D50W) 50% solution 25 mL 25 mL intravenous PRN Parul John, CHARTER BUS DRIVER-OIL SPRAYING MACHINE OPERATOR glucagon HCL injection 1 mg 1 mg intramuscular PRN Parul John, CHARTER BUS DRIVER-OIL SPRAYING MACHINE OPERATOR heparin (porcine) injection 2,000 Units 2,000 Units intravenous PRN Parul John, CHARTER BUS DRIVER-OIL SPRAYING MACHINE OPERATOR heparin infusion 30589 units/500 mL in 0.45% NaCl (50 units/mL premix) 300-3,500 Units/hr intravenous Continuous Parul John, CHARTER BUS DRIVER-OIL SPRAYING MACHINE OPERATOR 16 mL/hr at 10/13/23 0013 800 Units/hr at 10/13/23 0013 magnesium sulfate IVPB 2000 mg/50 mL in iso-osmotic water (40 mg/mL premix) 2,000 mg intravenous PRN Parul Hassann, CHARTER BUS DRIVER-OIL SPRAYING MACHINE OPERATOR Or magnesium sulfate IVPB 4000 mg/100 mL in iso-osmotic water (40 mg/mL premix) 4,000 mg intravenous PRN Parul John, CHARTER BUS DRIVER-OIL SPRAYING MACHINE OPERATOR midodrine (PROAMATINE) tablet 5 mg 5 mg oral Q8H PRN Parul John, CHARTER BUS DRIVER-OIL SPRAYING MACHINE OPERATOR potassium chloride (K-TAB,KLOR-CON) CR tablet 20-50 mEq 20-50 mEq oral PRN Parul Hassann, CHARTER BUS DRIVER-OIL SPRAYING MACHINE OPERATOR Or potassium chloride (KAYCIEL) 20 mEq/15 mL solution 20-50 mEq 20-50 mEq oral PRN Parul R Jeb, CHARTER BUS DRIVER-OIL SPRAYING MACHINE OPERATOR potassium chloride IVPB 10 mEq/50 mL in water (0.2 mEq/mL premix) 10 mEq intravenous PRN Parul R Jeb, CHARTER BUS DRIVER-OIL SPRAYING MACHINE OPERATOR Or potassium chloride IVPB 10 mEq/100 mL in water (0.1 mEq/mL premix) 10 mEq intravenous PRN Parul R Jeb, CHARTER BUS DRIVER-OIL SPRAYING MACHINE OPERATOR ranolazine (RANEXA) 12 hr tablet 1,000 mg 1,000 mg oral BID Parul R Jeb, CHARTER BUS DRIVER-OIL SPRAYING MACHINE OPERATOR rosuvastatin (CRESTOR) tablet 20 mg 20 mg oral Daily Parul Mcdowellfern, CHARTER BUS DRIVER-OIL SPRAYING MACHINE OPERATOR sodium phosphate 20 mmol in sodium chloride 0.9 % 250 mL IVPB 20 mmol intravenous PRN Parul R Jeb, CHARTER BUS DRIVER-OIL SPRAYING MACHINE OPERATOR Or sodium phosphate 20 mmol in sodium chloride 0.9 % 100 mL IVPB 20 mmol intravenous PRN Parul R Jeb, CHARTER BUS DRIVER-OIL SPRAYING MACHINE OPERATOR Or sod phos di, mono-K phos mono (K-PHOS NEUTRAL) 250 mg tablet 2 tablet 2 tablet oral PRN Parul R Jeb, CHARTER BUS DRIVER-OIL SPRAYING MACHINE OPERATOR sodium chloride 0.9 % infusion 10 mL/hr intravenous Continuous PRN Parul R Jeb, CHARTER BUS DRIVER-OIL SPRAYING MACHINE OPERATOR sodium chloride 0.9 % infusion 10 mL/hr intravenous Continuous PRN Parul R Jeb, CHARTER BUS DRIVER-OIL SPRAYING MACHINE OPERATOR sodium chloride 0.9 % infusion 10 mL/hr intravenous Continuous PRN Parul R Jeb, CHARTER BUS DRIVER-OIL SPRAYING MACHINE OPERATOR Laboratory CBC: BMP: Troponin I Physical Exam [...] This note was completed using a voice applied psychology professor system. Every effort was made to ensure accuracy. However, inadvertent computerized applied psychology professor errors may be present. Images from the original note were not included. [facility] [address] [place] [address] HISTORY & PHYSICAL / CONSULT NOTE Ashvin [...] found to be in CHF with proBNP 14538, HS trop 24506, and K 2.1 which was repleted but [...] Past Medical History: Diagnosis Date Angina pectoris ([facility]) Atherosclerosis of coronary artery bypass graft Atherosclerotic heart disease Coronary angioplasty status Coronary artery disease CVA (cerebral vascular accident) ([facility]) Dyspnea Hyperlipidemia Hypertension Hypotension Other chest pain Stroke ([facility]) Previous Surgical History: Past Surgical History: Procedure Laterality Date CARDIAC CATHETERIZATION Cardiac catheterization N/A 02/15/2023 Performed by Star Espinosa MD at [facility] Cardiac catheterization - LV cors w/graft check N/A 10/25/2020 Performed by Alexi Freeman MD at [facility] Coronary angiogram and graft/[place] N/A 02/15/2023 Performed by Star Espinosa MD at [facility] Coronary angiogram and left ventricular gram/pressure + graft/[place] N/A 10/25/2020 Performed by Alexi Freeman MD at [facility] Coronary angiogram and left ventricular gram/pressure + graft/[place] N/A 06/18/2016 Performed by Alexi Freeman MD at [facility] CORONARY ANGIOPLASTY 12/08/2020 orbital atherectomy and 2 HARRY to prox and distal Circ, at [facility] per Dr. Madhav Ugalde CORONARY ARTERY BYPASS GRAFT 09/08/2014 HYSTERECTOMY INSERTION LOOP RECORDER 05/24/2016 Percutaneous coronary angioplasty left circumflex N/A 02/15/2023 Performed by Star Espniosa MD at [facility] Stent drug-eluting left circumflex N/A 02/15/2023 Performed by Star Espinosa MD at [facility] Allergies: Allergies Allergen Reactions Aspirin-Dipyridamole aggronox Atorvastatin Hives lipitor Cefadroxil duricef Codeine Fenofibrate Micronized tricor Fluvoxamine luvox Nefazodone serzone Niacin Other reaction(s): Intolerance-unknown Hospital Meds: Current Facility-Administered Medications Medication Dose Route Frequency Provider Last Rate Last Admin calcium gluconate IVPB 1000 mg/50 mL (20 mg/mL premix) 1,000 mg intravenous PRN Parul John APRN-SUNIL Or calcium gluconate IVPB 2000 mg/100 mL (20 mg/mL premix) 2,000 mg intravenous PRN Parul John APRN-OIL SPRAYING MACHINE OPERATOR Or calcium gluconate 3,000 mg in sodium chloride 0.9 % 100 mL IVPB 3,000 mg intravenous PRN Parul John APRN-SUNIL dextrose (GLUTOSE) 40 % gel 15 g 15 g oral PRN Parul John APRN-OIL SPRAYING MACHINE OPERATOR dextrose 5 % (D5W) infusion 100 mL/hr intravenous Continuous PRN Parul John APRN-SUNIL dextrose 50 % in water (D50W) 50% solution 25 mL 25 mL intravenous PRN Parul R Jeb, CHARTER BUS DRIVER-OIL SPRAYING MACHINE OPERATOR glucagon HCL injection 1 mg 1 mg intramuscular PRN Parul R Jeb, CHARTER BUS DRIVER-OIL SPRAYING MACHINE OPERATOR heparin (porcine) injection 2,000 Units 2,000 Units intravenous PRN Parul R Jeb, CHARTER BUS DRIVER-OIL SPRAYING MACHINE OPERATOR [START ON 10/13/2023] heparin infusion 43071 units/500 mL in 0.45% NaCl (50 units/mL premix) 300-3,500 Units/hr intravenous Continuous Parul R Jeb, CHARTER BUS DRIVER-OIL SPRAYING MACHINE OPERATOR magnesium sulfate IVPB 2000 mg/50 mL in iso-osmotic water (40 mg/mL premix) 2,000 mg intravenous PRN Parul R Jeb, CHARTER BUS DRIVER-OIL SPRAYING MACHINE OPERATOR Or magnesium sulfate IVPB 4000 mg/100 mL in iso-osmotic water (40 mg/mL premix) 4,000 mg intravenous PRN Parul R Jeb, CHARTER BUS DRIVER-OIL SPRAYING MACHINE OPERATOR potassium chloride (K-TAB,KLOR-CON) CR tablet 20-50 mEq 20-50 mEq oral PRN Parul R Jeb, CHARTER BUS DRIVER-OIL SPRAYING MACHINE OPERATOR Or potassium chloride (KAYCIEL) 20 mEq/15 mL solution 20-50 mEq 20-50 mEq oral PRN Parul R Jeb, CHARTER BUS DRIVER-OIL SPRAYING MACHINE OPERATOR potassium chloride IVPB 10 mEq/50 mL in water (0.2 mEq/mL premix) 10 mEq intravenous PRN Parul R Jeb, CHARTER BUS DRIVER-OIL SPRAYING MACHINE OPERATOR Or potassium chloride IVPB 10 mEq/100 mL in water (0.1 mEq/mL premix) 10 mEq intravenous PRN Parul R Jeb, CHARTER BUS DRIVER-OIL SPRAYING MACHINE OPERATOR sodium phosphate 20 mmol in sodium chloride 0.9 % 250 mL IVPB 20 mmol intravenous PRN Parul R Jeb, CHARTER BUS DRIVER-OIL SPRAYING MACHINE OPERATOR Or sodium phosphate 20 mmol in sodium chloride 0.9 % 100 mL IVPB 20 mmol intravenous PRN Parul R Jeb, CHARTER BUS DRIVER-OIL SPRAYING MACHINE OPERATOR Or sod phos di, mono-K phos mono (K-PHOS NEUTRAL) 250 mg tablet 2 tablet 2 tablet oral PRN Parul R Jeb, CHARTER BUS DRIVER-OIL SPRAYING MACHINE OPERATOR sodium chloride 0.9 % infusion 10 mL/hr intravenous Continuous PRN Parul R Jeb, CHARTER BUS DRIVER-OIL SPRAYING MACHINE OPERATOR sodium chloride 0.9 % infusion 10 mL/hr intravenous Continuous PRN Parul R Jeb, CHARTER BUS DRIVER-OIL SPRAYING MACHINE OPERATOR sodium chloride 0.9 % infusion 10 mL/hr intravenous Continuous PRN CHER Rincon Home Meds: Prior to Admission medications Medication [...] 30 MINS BEFORE BREAKFAST. Tushar Solano Jr., pregabalin (LYRICA) 50 mg capsule Take 1 [...] be continued indefinitely given significant disease in [place] coronary arteries. Optimize medical therapy for coronary [...] be continued indefinitely given significant disease in [place] coronary arteries. Optimize medical therapy for coronary [...] Acute on chronic HFrEF Elevated [place] troponin 36718 ASCVD h/o CABG and s/p PCI Cx 03/05 Ischemic cardiomyopathy EF 35-40% Hypokalemia Chronic hypotension on midodrine Dyslipidemia Trend troponins Recheck electrolytes IV diuresis Continue Heparin gtt Continue DAPT Unable to titrate GDMT given HOTN Recheck echo PARUL JOHN, NICK-OIL SPRAYING MACHINE OPERATOR Parul John APRN-SUNIL 10/13/23 0016 [facility], LENNY [...] tablet 81 mg 81 mg oral Daily Parul John, CHARTER BUS DRIVER-OIL SPRAYING MACHINE OPERATOR calcium gluconate IVPB 1000 mg/50 mL (20 mg/mL premix) 1,000 mg intravenous PRN Parul Hassann, CHARTER BUS DRIVER-OIL SPRAYING MACHINE OPERATOR Or calcium gluconate IVPB 2000 mg/100 mL (20 mg/mL premix) 2,000 mg intravenous PRN Parul John, CHARTER BUS DRIVER-OIL SPRAYING MACHINE OPERATOR Or calcium gluconate 3,000 mg in sodium chloride 0.9 % 100 mL IVPB 3,000 mg intravenous PRN Parul John, CHARTER BUS DRIVER-OIL SPRAYING MACHINE OPERATOR clopidogreL (PLAVIX) tablet 75 mg 75 mg oral Daily Parul John, CHARTER BUS DRIVER-OIL SPRAYING MACHINE OPERATOR dextrose (GLUTOSE) 40 % gel 15 g 15 g oral PRN Parul John, CHARTER BUS DRIVER-OIL SPRAYING MACHINE OPERATOR dextrose 5 % (D5W) infusion 100 mL/hr intravenous Continuous PRN Parul John, CHARTER BUS DRIVER-OIL SPRAYING MACHINE OPERATOR dextrose 50 % in water (D50W) 50% solution 25 mL 25 mL intravenous PRN Parul John, CHARTER BUS DRIVER-OIL SPRAYING MACHINE OPERATOR glucagon HCL injection 1 mg 1 mg intramuscular PRN Parul John, CHARTER BUS DRIVER-OIL SPRAYING MACHINE OPERATOR heparin (porcine) injection 2,000 Units 2,000 Units intravenous PRN Parul John, CHARTER BUS DRIVER-OIL SPRAYING MACHINE OPERATOR heparin infusion 88867 units/500 mL in 0.45% NaCl (50 units/mL premix) 300-3,500 Units/hr intravenous Continuous Parul John, CHARTER BUS DRIVER-OIL SPRAYING MACHINE OPERATOR 16 mL/hr at 10/13/23 0013 800 Units/hr at 10/13/23 0013 magnesium sulfate IVPB 2000 mg/50 mL in iso-osmotic water (40 mg/mL premix) 2,000 mg intravenous PRN Parul John, CHARTER BUS DRIVER-OIL SPRAYING MACHINE OPERATOR Or magnesium sulfate IVPB 4000 mg/100 mL in iso-osmotic water (40 mg/mL premix) 4,000 mg intravenous PRN Parul John, CHARTER BUS DRIVER-OIL SPRAYING MACHINE OPERATOR midodrine (PROAMATINE) tablet 5 mg 5 mg oral Q8H PRN Parul John, CHARTER BUS DRIVER-OIL SPRAYING MACHINE OPERATOR potassium chloride (K-TAB,KLOR-CON) CR tablet 20-50 mEq 20-50 mEq oral PRN Parul John, CHARTER BUS DRIVER-OIL SPRAYING MACHINE OPERATOR Or potassium chloride (KAYCIEL) 20 mEq/15 mL solution 20-50 mEq 20-50 mEq oral PRN Parul R Jeb, CHARTER BUS DRIVER-OIL SPRAYING MACHINE OPERATOR potassium chloride IVPB 10 mEq/50 mL in water (0.2 mEq/mL premix) 10 mEq intravenous PRN Parul R Jeb, CHARTER BUS DRIVER-OIL SPRAYING MACHINE OPERATOR Or potassium chloride IVPB 10 mEq/100 mL in water (0.1 mEq/mL premix) 10 mEq intravenous PRN Parul R Jeb, CHARTER BUS DRIVER-OIL SPRAYING MACHINE OPERATOR ranolazine (RANEXA) 12 hr tablet 1,000 mg 1,000 mg oral BID Parul Hassann, CHARTER BUS DRIVER-OIL SPRAYING MACHINE OPERATOR rosuvastatin (CRESTOR) tablet 20 mg 20 mg oral Daily Parul Hassann, CHARTER BUS DRIVER-OIL SPRAYING MACHINE OPERATOR sodium phosphate 20 mmol in sodium chloride 0.9 % 250 mL IVPB 20 mmol intravenous PRN Parul R Jeb, CHARTER BUS DRIVER-OIL SPRAYING MACHINE OPERATOR Or sodium phosphate 20 mmol in sodium chloride 0.9 % 100 mL IVPB 20 mmol intravenous PRN Parul Hassann, CHARTER BUS DRIVER-OIL SPRAYING MACHINE OPERATOR Or sod phos di, mono-K phos mono (K-PHOS NEUTRAL) 250 mg tablet 2 tablet 2 tablet oral PRN Parul R Jeb, CHARTER BUS DRIVER-OIL SPRAYING MACHINE OPERATOR sodium chloride 0.9 % infusion 10 mL/hr intravenous Continuous PRN Parul R Jeb, CHARTER BUS DRIVER-OIL SPRAYING MACHINE OPERATOR sodium chloride 0.9 % infusion 10 mL/hr intravenous Continuous PRN Parul R Jeb, CHARTER BUS DRIVER-OIL SPRAYING MACHINE OPERATOR sodium chloride 0.9 % infusion 10 mL/hr intravenous Continuous PRN Parul R Jeb, CHARTER BUS DRIVER-OIL SPRAYING MACHINE OPERATOR Laboratory CBC: BMP: Troponin I Physical Exam [...] This note was completed using a voice applied psychology professor system. Every effort was made to ensure accuracy. However, inadvertent computerized applied psychology professor errors may be present. documented [facility] this encounter [facility] Nurse Note Adjusted CathPCI Bleeding Event [...] is an appropriate candidate for the procedure. [facility] Plan of care note Problem: Pain Goal: Patient goal is pain score less than 4, able to rest, and participant in treatment plan as appropriate Description: INTERVENTIONS: 1. Encourage patient or legal kiosk sales representative to report early pain and ask [...] per policy 9. Teach patient or legal kiosk sales representative interventions for comforting Outcome: Progressing Note: [...] at the bedside 7. Instruct patient/ patient kiosk sales representative about use of safety devices 8. Include patient/ patient kiosk sales representative in decisions related to safety Outcome: [...] hygiene technique 7. Identify and instruct patient/patient kiosk sales representative in use of appropriate isolation precautions for identified infection/symptoms 8. Provide and discuss with patient/patient kiosk sales representative on educational MDRO sheet 9. Encourage and monitor nutritional status daily and consult salesforce developer if indicated 10. Implement neutropenic guidelines as needed 11. Review exposure to history of communicable disease and recent travel history on admission 12. Encourage annual influenza vaccine 13. Encourage pneumonia vaccine Outcome: Progressing Note: Evaluation of progress towards goal: Patient afebrile and WBC of 5.3. Will continue to monitor for signs of infection Problem: Knowledge Deficit Goal: Patient/patient kiosk sales representative demonstrates understanding of disease process, treatment [...] develop effective communication strategies 4. Include patient/patient kiosk sales representative in decisions related to communication Outcome: [...] supplement as ordered 13. Collaborate with clinical salesforce developer 14. Include patient/ patient's kiosk sales representative in decisions related to nutrition Outcome: Progressing Note: Evaluation of progress towards goal: Collaborating with interdisciplinary team to ensure adequate nutritional intake. Problem: Moderate - High Risk Fall Score Description: Beal Fall Score of =/> 25 or indicated by [facility] Assessment Goal: Patient should be free from fall Description: Interventions: 1. [place] to environment 2. Hourly rounds addressing the [...] non-skid footwear 11. Teach patient and patient kiosk sales representative to maintain environment for safety and [...] (cane, walker) within reach 19. Request patient kiosk sales representative bring adaptive equipment/mobility aids from home or obtain and provide as needed 20. Consult pharmacy regarding effects of med's affecting mobility, cognition, and alternatives 21. Obtain physician order for PT if risk factors associated with mobility are present 22. Obtain physician order for OT as appropriate 23. Utilize diversional activities 24. Educate patient and patient kiosk sales representative how to maintain a safe environment during visitation times (notify nurse prior to leaving bedside) 25. Consider appropriateness of medical or non-emergency medical technician basic 26. Set up voiding schedule as appropriate (every 2 hours) Outcome: Progressing Note: Evaluation of progress towards goal: Area clear of hazards. Bed locked and in lowest position. Side rails up. Hourly rounding complete. Pt remains free from falls at this time. [facility] Plan of care note Problem: Pain Goal: Patient goal is pain score less than 4, able to rest, and participant in treatment plan as appropriate Description: INTERVENTIONS: 1. Encourage patient or legal kiosk sales representative to report early pain and ask [...] per policy 9. Teach patient or legal kiosk sales representative interventions for comforting Outcome: Progressing Note: [...] at the bedside 7. Instruct patient/ patient kiosk sales representative about use of safety devices 8. Include patient/ patient kiosk sales representative in decisions related to safety Outcome: [...] hygiene technique 7. Identify and instruct patient/patient kiosk sales representative in use of appropriate isolation precautions for identified infection/symptoms 8. Provide and discuss with patient/patient kiosk sales representative on educational MDRO sheet 9. Encourage and monitor nutritional status daily and consult salesforce developer if indicated 10. Implement neutropenic guidelines as needed 11. Review exposure to history of communicable disease and recent travel history on admission 12. Encourage annual influenza vaccine 13. Encourage pneumonia vaccine Outcome: Progressing Note: Evaluation of progress towards goal: Pt is afebrile at this time. Problem: Knowledge Deficit Goal: Patient/patient kiosk sales representative demonstrates understanding of disease process, treatment [...] Score of =/> 25 or indicated by [facility] Assessment Goal: Patient should be free from fall Description: Interventions: 1. [place] to environment 2. Hourly rounds addressing the [...] non-skid footwear 11. Teach patient and patient kiosk sales representative to maintain environment for safety and [...] (cane, walker) within reach 19. Request patient kiosk sales representative bring adaptive equipment/mobility aids from home or obtain and provide as needed 20. Consult pharmacy regarding effects of med's affecting mobility, cognition, and alternatives 21. Obtain physician order for PT if risk factors associated with mobility are present 22. Obtain physician order for OT as appropriate 23. Utilize diversional activities 24. Educate patient and patient kiosk sales representative how to maintain a safe environment during visitation times (notify nurse prior to leaving bedside) 25. Consider appropriateness of medical or non-emergency medical technician basic 26. Set up voiding schedule as appropriate (every 2 hours) Outcome: Progressing Note: Evaluation of progress towards goal: Pt is free from falls at this time. [facility]13-[facility]23 Progress note Formatting of t his note might be different from the original. Pt comfortable. No chest pain. No sob on 2 L ECG without sig ST abn Tr 13 Continues on heparin/DAPT Ionized mg .24 NSTEMI 2. Acute on chronic heart failure Keep NPO as LHC may be considered Supplement mg before diuresing [facility] 10-13-2023 Plan of care note Problem: Pain Goal: Patient goal is pain score less than 4, able to rest, and participant in treatment plan as appropriate Description: INTERVENTIONS: 1. Encourage patient or legal kiosk sales representative to report early pain and ask [...] per policy 9. Teach patient or legal kiosk sales representative interventions for comforting Outcome: Progressing Note: [...] at the bedside 7. Instruct patient/ patient kiosk sales representative about use of safety devices 8. Include patient/ patient kiosk sales representative in decisions related to safety Outcome: [...] hygiene technique 7. Identify and instruct patient/patient kiosk sales representative in use of appropriate isolation precautions for identified infection/symptoms 8. Provide and discuss with patient/patient kiosk sales representative on educational MDRO sheet 9. Encourage and monitor nutritional status daily and consult salesforce developer if indicated 10. Implement neutropenic guidelines as needed 11. Review exposure to history of communicable disease and recent travel history on admission 12. Encourage annual influenza vaccine 13. Encourage pneumonia vaccine Outcome: Progressing Note: Evaluation of progress towards goal: Pt afebrile and no outward signs of infection during shift. Problem: Knowledge Deficit Goal: Patient/patient kiosk sales representative demonstrates understanding of disease process, treatment [...] develop effective communication strategies 4. Include patient/patient kiosk sales representative in decisions related to communication Outcome: [...] Collaborate with ancillary departments 14. Include patient/patient kiosk sales representative in decisions related to anxiety Outcome: [...] 6. Collaborate with pastoral/spiritual care, social work msw, mental health counselor as needed. 7. Instruct patient on diversional activities such as physical activity, distraction, and deep breathing exercises to assist with coping 8. Involve patient's kiosk sales representative in care Outcome: Progressing Note: Evaluation [...] supplement as ordered 13. Collaborate with clinical salesforce developer 14. Include patient/ patient's kiosk sales representative in decisions related to nutrition Outcome: [...] be free from fall Description: Interventions: 1. [place] to environment 2. Hourly rounds addressing the [...] non-skid footwear 11. Teach patient and patient kiosk sales representative to maintain environment for safety and [...] (cane, walker) within reach 19. Request patient kiosk sales representative bring adaptive equipment/mobility aids from home or obtain and provide as needed 20. Consult pharmacy regarding effects of med's affecting mobility, cognition, and alternatives 21. Obtain physician order for PT if risk factors associated with mobility are present 22. Obtain physician order for OT as appropriate 23. Utilize diversional activities 24. Educate patient and patient kiosk sales representative how to maintain a safe environment during visitation times (notify nurse prior to leaving bedside) 25. Consider appropriateness of medical or non-emergency medical technician basic 26. Set up voiding schedule as appropriate (every 2 hours) Outcome: Progressing Note: Evaluation of progress towards goal: No signs of falls during shift. [facility] 10-12-2023 History and physical note Images from the original note were not included. [facility] [address] [place] [address] HISTORY & PHYSICAL / CONSULT NOTE Ashvin [...] found to be in CHF with proBNP 91077, HS trop 41448, and K 2.1 which was repleted but [...] Past Medical History: Diagnosis Date Ang[place]is [place] Atherosclerosis of coronary artery bypass graft Atherosclerotic heart disease Coronary angioplasty status Coronary artery disease CVA (cerebral vascular accident) [place] Dyspnea Hyperlipidemia Hypertension Hypotension Other chest pain Stroke [place] Previous Surgical History: Past Surgical History: Procedure Laterality Date CARDIAC CATHETERIZATION Cardiac catheterization N/A 02/15/2023 Performed by Star Espinosa MD at [facility] Cardiac catheterization - LV cors w/graft check N/A 10/25/2020 Performed by Alexi Freeman MD at [facility] Coronary angiogram and graft/[place] N/A 02/15/2023 Performed by Star Espinosa MD at [facility] Coronary angiogram and left ventricular gram/pressure + graft/[place] N/A 10/25/2020 Performed by Alexi Fereman MD at [facility] Coronary angiogram and left ventricular gram/pressure + graft/[place] N/A 06/18/2016 Performed by Alexi Freeman MD at [facility] CORONARY ANGIOPLASTY 12/08/2020 orbital atherectomy and 2 HARRY to prox and distal Circ, at [facility] per Dr. Madhav Ugalde CORONARY ARTERY BYPASS GRAFT 09/08/2014 HYSTERECTOMY INSERTION LOOP RECORDER 05/24/2016 Percutaneous coronary angioplasty left circumflex N/A 02/15/2023 Performed by Star Espinosa MD at [facility] Stent drug-eluting left circumflex N/A 02/15/2023 Performed by Star Espinosa MD at [facility] Allergies: Allergies Allergen [...] mg/mL premix) 2,000 mg intravenous PRN Parul John APRN-SUNIL Or calcium gluconate 3,000 mg in sodium chloride 0.9 % 100 mL IVPB 3,000 mg intravenous PRN Parul John APRN-SUNIL dextrose (GLUTOSE) 40 % gel 15 g 15 g oral PRN Parul John APRN-SUNIL dextrose 5 % (D5W) infusion 100 mL/hr intravenous Continuous PRN Parul John APRN-SUNIL dextrose 50 % in water (D50W) 50% solution 25 mL 25 mL intravenous PRN Parul John APRN-SUNIL glucagon HCL injection 1 mg 1 mg intramuscular PRN CHER Rincon heparin (porcine) injection 2,000 Units 2,000 Units intravenous PRN Parul John APRN-SUNIL [START ON 10/13/2023] heparin infusion 64783 units/500 mL in 0.45% NaCl (50 units/mL premix) 300-3,500 Units/hr intravenous Continuous Parul John APRN-SUNIL magnesium sulfate IVPB 2000 mg/50 mL in iso-osmotic water (40 mg/mL premix) 2,000 mg intravenous PRN Parul R Jeb, CHARTER BUS DRIVER-OIL SPRAYING MACHINE OPERATOR Or magnesium sulfate IVPB 4000 mg/100 mL in iso-osmotic water (40 mg/mL premix) 4,000 mg intravenous PRN Parul R Jeb, CHARTER BUS DRIVER-OIL SPRAYING MACHINE OPERATOR potassium chloride (K-TAB,KLOR-CON) CR tablet 20-50 mEq 20-50 mEq oral PRN Parul R Jeb, CHARTER BUS DRIVER-OIL SPRAYING MACHINE OPERATOR Or potassium chloride (KAYCIEL) 20 mEq/15 mL solution 20-50 mEq 20-50 mEq oral PRN Parul R Jeb, CHARTER BUS DRIVER-OIL SPRAYING MACHINE OPERATOR potassium chloride IVPB 10 mEq/50 mL in water (0.2 mEq/mL premix) 10 mEq intravenous PRN Parul R Jeb, CHARTER BUS DRIVER-OIL SPRAYING MACHINE OPERATOR Or potassium chloride IVPB 10 mEq/100 mL in water (0.1 mEq/mL premix) 10 mEq intravenous PRN Parul R Jeb, CHARTER BUS DRIVER-OIL SPRAYING MACHINE OPERATOR sodium phosphate 20 mmol in sodium chloride 0.9 % 250 mL IVPB 20 mmol intravenous PRN Parul R Jeb, CHARTER BUS DRIVER-OIL SPRAYING MACHINE OPERATOR Or sodium phosphate 20 mmol in sodium chloride 0.9 % 100 mL IVPB 20 mmol intravenous PRN Parul R Jeb, CHARTER BUS DRIVER-OIL SPRAYING MACHINE OPERATOR Or sod phos di, mono-K phos mono (K-PHOS NEUTRAL) 250 mg tablet 2 tablet 2 tablet oral PRN Parul R Jeb, CHARTER BUS DRIVER-OIL SPRAYING MACHINE OPERATOR sodium chloride 0.9 % infusion 10 mL/hr intravenous Continuous PRN Parul R Jeb, CHARTER BUS DRIVER-OIL SPRAYING MACHINE OPERATOR sodium chloride 0.9 % infusion 10 mL/hr intravenous Continuous PRN Parul R Jeb, CHARTER BUS DRIVER-OIL SPRAYING MACHINE OPERATOR sodium chloride 0.9 % infusion 10 mL/hr intravenous Continuous PRN Parul R Jeb, CHARTER BUS DRIVER-OIL SPRAYING MACHINE OPERATOR Home Meds: Prior to Admission medications Medication [...] be continued indefinitely given significant disease in [place] coronary arteries. Optimize medical therapy for coronary [...] be continued indefinitely given significant disease in [place] coronary arteries. Optimize medical therapy for coronary [...] Acute on chronic HFrEF Elevated [place] troponin 57734 ASCVD h/o CABG and s/p PCI Cx [...] mL IVPB 3,000 mg intravenous PRN Parul R Jeb, CHARTER BUS DRIVER-OIL SPRAYING MACHINE OPERATOR clopidogreL (PLAVIX) tablet 75 mg 75 mg oral Daily Parul John, CHARTER BUS DRIVER-OIL SPRAYING MACHINE OPERATOR dextrose (GLUTOSE) 40 % gel 15 g 15 g oral PRN Parul Hassann, CHARTER BUS DRIVER-OIL SPRAYING MACHINE OPERATOR dextrose 5 % (D5W) infusion 100 mL/hr intravenous Continuous PRN Parul Hassann, CHARTER BUS DRIVER-OIL SPRAYING MACHINE OPERATOR dextrose 50 % in water (D50W) 50% solution 25 mL 25 mL intravenous PRN Parul John, CHARTER BUS DRIVER-OIL SPRAYING MACHINE OPERATOR glucagon HCL injection 1 mg 1 mg intramuscular PRN Parul Hassann, CHARTER BUS DRIVER-OIL SPRAYING MACHINE OPERATOR heparin (porcine) injection 2,000 Units 2,000 Units intravenous PRN Parul Holder Jeb, CHARTER BUS DRIVER-OIL SPRAYING MACHINE OPERATOR heparin infusion 69824 units/500 mL in 0.45% NaCl (50 units/mL premix) 300-3,500 Units/hr intravenous Continuous Parul Hassann, CHARTER BUS DRIVER-OIL SPRAYING MACHINE OPERATOR 16 mL/hr at 10/13/23 0013 800 Units/hr at 10/13/23 0013 magnesium sulfate IVPB 2000 mg/50 mL in iso-osmotic water (40 mg/mL premix) 2,000 mg intravenous PRN Parul Holder Jeb, CHARTER BUS DRIVER-OIL SPRAYING MACHINE OPERATOR Or magnesium sulfate IVPB 4000 mg/100 mL in iso-osmotic water (40 mg/mL premix) 4,000 mg intravenous PRN Parul John, CHARTER BUS DRIVER-OIL SPRAYING MACHINE OPERATOR midodrine (PROAMATINE) tablet 5 mg 5 mg oral Q8H PRN Parul Hassann, CHARTER BUS DRIVER-OIL SPRAYING MACHINE OPERATOR potassium chloride (K-TAB,KLOR-CON) CR tablet 20-50 mEq 20-50 mEq oral PRN Parul Hassann, CHARTER BUS DRIVER-OIL SPRAYING MACHINE OPERATOR Or potassium chloride (KAYCIEL) 20 mEq/15 mL solution 20-50 mEq 20-50 mEq oral PRN Parul Holder Jeb, CHARTER BUS DRIVER-OIL SPRAYING MACHINE OPERATOR potassium chloride IVPB 10 mEq/50 mL in water (0.2 mEq/mL premix) 10 mEq intravenous PRN Parul R Jeb, CHARTER BUS DRIVER-OIL SPRAYING MACHINE OPERATOR Or potassium chloride IVPB 10 mEq/100 mL in water (0.1 mEq/mL premix) 10 mEq intravenous PRN Parul Hassann, CHARTER BUS DRIVER-OIL SPRAYING MACHINE OPERATOR ranolazine (RANEXA) 12 hr tablet 1,000 mg 1,000 mg oral BID Parul R Jeb, CHARTER BUS DRIVER-OIL SPRAYING MACHINE OPERATOR rosuvastatin (CRESTOR) tablet 20 mg 20 mg oral Daily Parul R Jeb, CHARTER BUS DRIVER-OIL SPRAYING MACHINE OPERATOR sodium phosphate 20 mmol in sodium chloride 0.9 % 250 mL IVPB 20 mmol intravenous PRN Parul R Jeb, CHARTER BUS DRIVER-OIL SPRAYING MACHINE OPERATOR Or sodium phosphate 20 mmol in sodium chloride 0.9 % 100 mL IVPB 20 mmol intravenous PRN Parul R Jeb, CHARTER BUS DRIVER-OIL SPRAYING MACHINE OPERATOR Or sod phos di, mono-K phos mono (K-PHOS NEUTRAL) 250 mg tablet 2 tablet 2 tablet oral PRN Parul R Jeb, CHARTER BUS DRIVER-OIL SPRAYING MACHINE OPERATOR sodium chloride 0.9 % infusion 10 mL/hr intravenous Continuous PRN Parul R Jeb, CHARTER BUS DRIVER-OIL SPRAYING MACHINE OPERATOR sodium chloride 0.9 % infusion 10 mL/hr intravenous Continuous PRN Parul R Jeb, CHARTER BUS DRIVER-OIL SPRAYING MACHINE OPERATOR sodium chloride 0.9 % infusion 10 mL/hr intravenous Continuous PRN Parul R Jeb, CHARTER BUS DRIVER-OIL SPRAYING MACHINE OPERATOR Laboratory CBC: BMP: Troponin I Physical Exam [...] This note was completed using a voice applied psychology professor system. Every effort was made to ensure accuracy. However, inadvertent computerized applied psychology professor errors may be present. [facility] Work Phone: 10-12-2023 History of Present illness Narrative Images from the original note were not included. [facility] Significant Event Note I am on-call covering for my group today. I am at [facility]. This patient presented to the ER at [facility]. I was paged, called back promptly, spoke to ER provider, reviewed EMR, discussed case, provided recommendations as detailed below. Subjective: 67 year old patient presented to the ER at [facility] with generalized weakness and malaise [...] of 35-40% Atherosclerotic heart disease of the [place] coronary arteries with stable angina pectoris History of CABG and subsequent HARRY Profound hypokalemia 2.1 in the ER at [facility] receiving replacements COVID test was negative at [facility] Given profound hypokalemia and risk for spontaneous malignant arrhythmia recommend admission to the ICU or CCU Access transfer team is working on the transfer arrangements and logistics as well as bed availability here at [facility] Recommend to the ER that patient needs to receive ICU dosing oral and IV potassium to replenish her total body potassium depletion She is on torsemide at home and she will need to be on a potassium supplement She will receive anti heart failure therapies while here in [facility] as well as medical therapy for CAD and cardiomyopathy I discussed with ER provider and access transfer team as well as updated the night team covering here at [facility] and the arrangements have been made for patient to be transferred pending the logistics and bed availability Please contact our cardiology service if any changes in patient's status overnight Thank you Jonathan Pizarro DO, FACC, FACOI This note was completed using a voice applied psychology professor system. Every effort was made to ensure accuracy. However, inadvertent computerized applied psychology professor errors may be present. documented in this encounter [facility] 08-22-2023 Telephone encounter Note Patient left message [...] not need a different prescription sent in. [facility] 08-22-2023 Miscellaneous Notes Patient left message on [...] prescription sent in. documented in this encounter [facility] 08-21-2023 History of Present illness Narrative [...] Bilateral FRANCIS/PVR study performed on 05-29-2023 at [facility] showed: FRANCIS is falsely elevated suggesting medial [...] 2-5 bilateral are flexible/reducible. SHOE GEAR EVALUATION: Skechers shoes. X-ray: Foot: 04-08-2023: LEFT FOOT x-rays, [...] decisions I made. documented in this encounter [facility] 08-04-2023 Evaluation note Encounter Date Diagnosis Assessment Notes Jul, PAD (peripheral artery disease) (ICD-10 - I73.9) We reviewed her noninvasive arterial studies obtained at outside facility and [facility] in [place] which indicate mild to moderate arterial disease [...] - I96) Jul, Non-smoker (ICD-10 - Z78.9) [employer] Other 12-13-2023 History of Present illness Narrative* Kimberly Codyfin - 06/25/2023 10:40 AM EST Ortho Nurse - Established Patient Intake Room#: 1 --- PREFORMS LAMINATOR for Left knee/leg pain. Hip surgery was in 2014 and knee surgeries were in 2018. Both surgeries were from a fall. Rates her pain at a 3 today. Pain radiates down the leg and makes herleg feel weak. Has had formal PT and had very little relief, never tried injections. Would like to discuss what can be done with her leg. Date: 06/25/2023 11:28 AM Patient: Ashvin Rene MR#: [id number] : 1955 Age: 67 y.o. Referring Physician: Self, Self Insurance: Payor: MEDICARE ANTH HMO OR PPO / Plan: MEDICARE ANTHEM [...] capsule by mouth daily. Ergocalciferol 1.25 MG (64024 UT) capsule Take 1 capsule by mouth [...] 06/25/2023 11:28 AM Patient: Ashvin Rene MR#: [id number] : 1955 Age: 67 y.o. Referring Physician: [...] GASTRIC BYPASS 2001 HYSTERECTOMY 1978 AORTIC STENT Family History: Her family history [...] [x]cane, []bracing Are you followed by a collector? [x] [] Name: Dr. Ryan Gordon Are [...] capsule by mouth daily. Ergocalciferol 1.25 MG (88784 UT) capsule Take 1 capsule by mouth [...] TX Right 2015 GASTRIC BYPASS 2002 HYSTERECTOMY 1978 AORTIC STENT History reviewed. No [...] daily., Disp: , Rfl: Ergocalciferol 1.25 MG (36992 UT) capsule, Take 1 capsule by mouth [...] Rfl: No Known Allergies documented in this [facility]11-07[facility]2022 Evaluation note* Encounter Date Diagnosis Assessment [...] Other Skin wound mate roque was printed [employer] Other 02-02-2022 Note [id number] Hospitals [facility]02-01-2022 NoteEducation Materials Obstetrics and Gynecology [...] fluid you drink (fluid restriction). ? Take kfam-kvc-enlibkj and prescription medicines only as told by [...] provider. Document Revised: 07/03/2018 Document Reviewed: 07/18/2017 [employer] Patient Education ? [address] [employer] [facility] HospitalYreaxbai05-42-8430 Note [facility] Clinical Discharge Summary PERSON INFORMATION Name ASHVIN RENE Age 65 Years 1955 Sex FEMALE Language Swedish PCP TUSHAR SOLANO JR. Marital Status Med Service Med/Surg Acct# Arrival 08/06/2021 17:10:50 Visit Reason ANEMIA, ELEVATED TROPONIN Acuity LOS 007 15:53 Address: [address] [place] [address] Comment: PROVIDER INFORMATION VITALS INFORMATION Vital Sign [...] Medication List: New Medications [facility], [address] [place] [address] [phone], [phone] ferrous sulfate (ferrous sulfate 325 mg (65 mg elemental iron) oral tablet) 1 tab(s) Oral 2 times aday for 30 Days. Refills: 1. torsemide (torsemide 20 mg oral tablet) 1 tab(s) Oral every other day for 30 Days. [facility]. Refills: 1. Medications That Were Updated - Follow Below Instructions Other Medications Updated: fludrocortisone (fludrocortisone 0.1 mg oral tablet) 0.5 tab(s) Oral every day. TAKE IN MORNING MEAL, HOLD IF STANDING BP [id number]. Medications to Continue That Have Not Changed [...] mg oral tablet) potassium chloride (Potassium Chloride (Uxl-Viwi-Fem 10) 10 mEq oral tablet, extended release) [...] range between ( 1.3 and 2.9 ) [place] Abs#: 0.4 x103/mcL -- Normal range between ( 0.0 and 0.8 ) Auto Baso %: 1.0 % -- Normal range between ( 0.2 and 2.0 ) Auto [place] %: 7 % -- Normal range between [...] ( 101 and 111 (more content not included)...[facility] [id number] NoteDATE OF PROCEDURE: 08/10/2021 SURGEON: Noe Reed MD ANESTHESIA: Rony Ordonez MD ([facility] [place]) PREOPERATIVE DIAGNOSIS: GI-bleed. [...] well. She will be returned to the [address] [place] [address]. We will await the pathology results. Noe Reed M.D. JOB #: [id number] nery CC: Tushar Solano MD [Electronically Signed on: 08/22/2021 08:54 EST] Noe Reed MD [Verified on: 08/22/2021 08:54 EST] Noe Reed MD [Transcribed on: 08/10/2021 12:12 EST] [facility]09-30-2021 Evaluation note* Encounter Date Diagnosis Assessment Notes Treatment Notes Treatment Clinical Notes Mar, Nausea & vomiting (ICD-10 - R11.2) Nausea and vomiting: adult material was printed Mar, Epigastric pain (ICD-10 - R10.13) [employer] Other 05-28-2021 NoteHNO ID: [id number] Author: Jaimee Pierce RN Service: Care Management [...] 08, 2020 TIME: 10:58 AM PAGER/CONTACT #: [phone]. [facility]21 NoteHNO ID: [id number] Author: Jaimee Pierce RN Service: Care Management [...] 08, 2020 TIME: 9:57 AM PAGER/CONTACT #: [phone]. [facility] Hospital05-27-2021 NoteHNO ID: [id number] Author: Nay Joseph MD Service: ? Author [...] Could not cross stenoses with Finecross or PlotWatt flex 135 mm microcatheters. 7Fr Telescope guide [...] No further targets for coronary revascularization. 2. terminal operator DAPT STAFF PHYSICIAN: Dirk Joseph MD DATE OF SERVICE: 12/07/2020 TIME OF SERVICE: 6:19 PM (Procedure performed with Dr. Milli Foster and Dr. Erika Kohler)[facility]05-27-2021 NoteProcedure (CATHMN) ASHVIN RENE ([id number]) 1955 F Date Time Provider Department 12/07/20 NAY JOSEPH CATHFL During your visit today, we recorded the [...] No further targets for coronary revascularization. 2. [facility]PC DAPT STAFF PHYSICIAN: Dirk Joseph MD DATE OF SERVICE: 12/07/2020 TIME OF SERVICE: 6:19 PM (Procedure performed with Dr. Milli Foster and Dr. Erika Kohler) Allergies As of Date: 12/07/2020 Noted Allergy Reaction CODEINE 11/24/2020 1 - Mental Status Change 4 - Hives Date Reviewed: 11/24/2020 Reviewed by: Demetra Guadalupe RN - Fully Assessed Primary Visit Diagnosis:Coronary artery disease of [place] artery of [place] heart with stable angina pectoris (HCC) [I25.118] [...] 12/07/2020 Noted Resolved Coronary artery disease of [place] artery of otilio*11/24/2020 S/P CABG (coronary artery bypass graft) [Z95.1] 11/24/2020 Pure hypercholesterolemia [E78.00] (more content not included)... [facility]05-27-2021 NoteHNO ID: [id number] Author: Milli Foster MD Service: Cardiovascular Medicine [...] Milli Foster MD Fellow, Interventional Cardiology Pager: [phone] 12/08/2020 11:34 [facility]05-14-2021 NoteHNO ID: [id number] Author: Nay Joseph MD Service: ? Author Type: Physician Type: Progress Notes Filed: 11/29/2020 7:54 AM Note Text: Heart and Vascular [facility] Department of Cardiovascular Medicine SECTION OF INTERVENTIONAL CARDIOLOGY OUTPATIENT VISIT DATE November 23, 2020 OUTPATIENT VISIT TYPE NEW PRIMARY CARE PHYSICIAN: Tushar Solano Jr, DO (Dr) [address] [place] [address] [place] [address] REFERRING PHYSICIAN: Waqas Mabry MD [facility] [place] [address] [facility] [address] CHIEF COMPLAINT: No chief complaint on file. [...] to unknown vessel (heartburn resolved after PCI) 2014 CABG x 2 L-LAD SVG-dRCA (heartburn, abnormal stress-symptoms resolved after CABG) 2015 CVA and (?) AR 05/24/16 Echo ? Normal left ventricular end-diastolic [...] area of anterior/anterolateral (more content not included)... [facility]04-29-2021 Miscellaneous Notes* Telephone Encounter - Pilar GlenysAshvin - 11/09/2020 10:10 AM EDT Patient: Ashvin Rene Date of : 1955 Patient phone number: [phone] Referring Provider for the encounter: Dr Waqas Mabry Requesting Provider: Cardiology Reason for requesting visit (RFV/signs and symptoms/diagnosis): 2nd Opinion - Severe CAD Person calling: caregiver: ERIC Return call to: self Medical Records/Insurance Card scanned into [email or web address]: Yes Comments: N/A documented in this encounterPremier HealthEvalubeebe healthcare noteNo InformationNortChestnut Hill Hospital Bubbly Other Evaluation noteNo assessment information available [facility] Work Phone: Evaluation note* Diagnosis Left knee pain, unspecified chronicity- Primary [facility] Diagnosis 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)- Primary Gangrene (CMS/HCC) Gangrene Pain in toe of right foot Pain in soft tissues of limb Arteriosclerosis of arteries of extremities (CMS/HCC) [facility] Diagnosis Stenosis of left carotid artery Occlusion and stenosis of carotid artery without mention of cerebral infarction Stenosis of left carotid artery- Primary Occlusion and stenosis of carotid artery without mention of cerebral infarction [facility]* Diagnosis Decompensated heart failure (CMS-HCC)- Primary NSTEMI (non-ST elevated myocardial infarction) (CMS-HCC) Acute myocardial infarction, subendocardial infarction, episode of care unspecified Decompensated heart failure (CMS-HCC) NSTEMI (non-ST elevated myocardial infarction) (CMS-HCC) Acute myocardial infarction, subendocardial infarction, episode of care unspecified NSTEMI (non-ST elevated myocardial infarction) (CMS-HCC) Acute myocardial infarction, subendocardial infarction, episode of care unspecified documented [facility] this encounter [facility] SystemHistory general Narrative - Reported* Type Description Date Medical History Cholesterol Medical History heart disease Medical History hypertension Surgical History left hip Surgical History stomach Surgical History heart stent Surgical History bypass Surgical History gastric bypass Hospitalization History see above [employer] Other InstructionsNot on filedocumented in this encounter [facility]MKitt[facility] SystemInstructionsNot on filedocumented in this encounter [facility] SystemReason for referral (narrative)* Consultation (Routine) - Pending Review Specialty Diagnoses / Procedures Referred By Teofilo t Referred To Contact Cardiology Diagnoses NSTEMI (non-ST elevated myocardial infarction) ([facility]) Decompensated heart failure ([facility]) Kallie Roman MD [address], [address] [place] [address] [facility] [address] [place] [address] Referral ID Status Reason Start Date Expiration Date Visits Requested Visits Authorized [id number] Pending Review Specialty Services Required 10/15/2023 10/14/2024 1 1 * Misc (Routine) - Pending Review Specialty Diagnoses / Procedures Referred By Contac t Referred To Contact Procedures Discharge Follow-Up Kallie Roman MD [address], [address] [place] [address] Referral ID Status Reason Start Date Expiration Date V isits Requested Visits Authorized [id number] Pending Review 10/15/2023 10/14/2024 1 1 * Misc (Routine) - Pending Review Specialty Diagnoses / Procedures Referred By Contac t Referred To Contact Diagnoses NSTEMI (non-ST elevated myocardial infarction) ([facility]) Decompensated heart failure ([facility]) Procedures Follow-up with primary care provider Kallie Roman MD [address], [address] [place] [address] Referral ID Status Reason Start Date Expiration Date V isits Requested Visits Authorized [id number] Pending Review 10/15/2023 10/14/2024 1 1 * Misc (Routine) - Pending Review Specialty Diagnoses / Procedures Referred By Contac t Referred To Contact Procedures No dressing needed Kallie Roman MD [address], [address] [place] [address] Referral ID Status Reason Start Date Expiration Date V isits Requested Visits Authorized [id number] Pending Review 10/15/2023 10/14/2024 1 1 * Misc (Routine) - Pending Review Specialty Diagnoses / Procedures Referred By Contac t Referred To Contact Procedures Adult Kallie Ashley MD [address] [address] Referral ID Status Reason Start Date Expiration Date V isits Requested Visits Authorized [id number] Pending Review 10/15/2023 10/14/2024 1 1 [facility] Advance Directives No Advanced Directives Records Found [...] worsening of your eyesight. Please call your warp starter during normal business hours. If after business hours call Dr. Deng Humphreys at his cell [phone] or his office [phone]. Summary Purpose Reason for Referral Specialty Diagnoses / Procedures Referred By Teofilo serrato Referred To Contact Diagnoses Stenosis of left carotid artery Procedures Vas carotid duplex bilateral Mariama Veras MD [address] [facility] [place] [address] [facility] [address] [place] [address] Phone: [phone] Referral ID Status Reason Start Date Expiration Date Visits Re quested Visits Authorized [id number] Closed 10/06/2023 10/05/2024 1 1 Specialty Diagnoses / Procedures Referred By Teofilo serrato Referred To Contact Diagnoses Left knee pain, unspecified chronicity Norman Braga MD [address] [place] [address] Referral ID Status Reason Start Date Expiration Date V isits Requested Visits Authorized [id number] New Request 06/25/2023 07/19/2024 1 1 Scheduling Instructions . Specialty Diagnoses / Procedures Referred By Contac t Referred To Contact Diagnoses Left knee pain, unspecified chronicity Procedures XR KNEE LEFT 4+ VIEWS Norman Braga MD [address] [place] [address] Referral ID Status Reason Start Date Expiration Date V isits Requested Visits Authorized [id number] Pending Review 06/18/2023 07/12/2024 1 1 Specialty Diagnoses / Procedures Referred By Contac t Referred To Contact Diagnoses Left knee pain, unspecified chronicity Procedures XR BONE LENGTH STUDY Norman Braga MD [address] [place] [address] Referral ID Status Reason Start Date Expiration Date V isits Requested Visits Authorized [id number] Pending Review 06/18/2023 07/12/2024 1 1 Additional Source Comments Source Comments (unrecognize d section and content) In the event this informatio n is protected by the Federal Confidentiality of Alcohol and Drug Abuse Patient Records regulations: The Federal rules restrict any use of the information to criminally investigate or prosecute any alcohol or drug abuse patient.[facility] Reason for Visit (unrecogniz ed section and content) Reason Comments External Referrals/resources Specialty Diagnoses / Procedures Referred By Contac t Referred To Contact Diagnoses Left knee pain, unspecified chronicity Procedures XR BONE LENGTH STUDY Norman Braga MD [address] [place] [address] Referral ID Status Reason Start Date Expiration Date V isits Requested Visits Authorized [id number] Pending Review 06/18/2023 07/12/2024 1 1 Reason Comments Pain Reason Onset Date Comments Santyl 08/22/2023 Specialty Diagnoses / Procedures Referred By Contac t Referred To Contact Diagnoses Decompensated heart failure ([facility]) CHF (congestive heart failure) ([facility]) Decompensated Heart Failure, Severe Hypokalemia Jonathan Pizarro DO [address] [place] [address] Referral ID Status Reason Start Date Expiration Date Visits Re quested Visits Authorized [id number] 1 1 INFORMATION SOURCE (unrecogn ized section and content) DATE CREATED AUTHOR 03/12/2021 [facility] DATE CREATED AUTHOR AUTHOR'S ORGANIZ ATION 08/13/2021 [facility] DATE CREATED AUTHOR AUTHOR'S ORGANIZ ATION 09/26/2021 [facility] DATE CREATED AUTHOR AUTHOR'S ORGANIZ ATION 10/20/2022 [facility] DATE CREATED AUTHOR AUTHOR'S ORGANIZ ATION 07/04/2023 [facility] DATE CREATED AUTHOR AUTHOR'S ORGANIZ ATION 08/20/2023 [facility] DATE CREATED AUTHOR AUTHOR'S ORGANIZ ATION 10/16/2023 [facility] DATE CREATED AUTHOR AUTHOR'S ORGANIZ ATION 10/18/2023 [facility] DATE CREATED AUTHOR AUTHOR'S ORGANIZ ATION 10/25/2023 [facility] DATE CREATED AUTHOR AUTHOR'S ORGANIZ ATION 02/19/2024 [facility] d[facility] Specialists EPIC Care Teams (unrecognized sec tion and content) [...] Provider Active ZAC Renae Attending Provider Active Alberene Stone Setter Relationship Specialty Start Date End Date Tushar Solano Jr., DO [address] [place] [address] PCP - General Internal Medicine 05/28/23 Alberene Stone Setter Relationship Specialty Start Date End Date Tushar Solano Jr., DO [address] [place] [address] PCP - General Internal Medicine 05/28/23 Alberene Stone Setter Relationship Specialty Start Date End Date Tushar Solano MD [address] [place] [address] PCP - General Internal Medicine 04/08/23 Alberene Stone Setter Relationship Specialty Start Date End Date Tushar Solano MD [address] [place] [address] PCP - General Internal Medicine 04/08/23 Alberene Stone Setter Relationship Specialty Start Date End Date Tushar Solano MD [address] [place] [address] [phone] PCP - General Internal Medicine 04/08/23 Alberene Stone Setter Relationship Specialty Start Date End Date Tushar Solano Jr., DO [address] [place] [phone] PCP - General Internal Medicine 05/24/16 Alberene Stone Setter Relationship Specialty Start Date End Date Tushar Solano Jr., [address] [place] [address] PCP - General Internal Medicine 05/24/16 Alberene Stone Setter Relationship Specialty Start Date End Date Tushar Solano Jr., DO [address] [place] [address] [phone] PCP - General Internal Medicine 05/24/16 Goals (unrecognized section and content) Goals may be documented in a n alternate section Scheduled Active and Recently Administ ered Medications (unrecognized section and content) Medication Order 10/13/2023 10/14/2023 10/15/2023 aspirin chewable tablet 81 mg 81 mg, oral, Daily, First dose on Fri10/13/23 at 0900 0830 (Given - Provider: Gely Chua RN) 0729 ([facility] Hold - Provider: Automatic Transfer Provider - Reason: Patient not available)0900 (Dose Auto Held - Provider: Automatic Transfer Provider)0917 ([facility] Unhold - Provider: Automatic Transfer Provider) 0958 (Given - Provider: David Florez, RN) bisoprolol (ZEBETA) tablet 5 mg 5 mg, oral, Daily, First dose on Fri10/14/23 at 1115, Look-alike/sound-alike medication - verify indication for use. 1332 (Given - Provider: Gely Chua RN) 0959 (Given - Provider: David Florez RN) clopidogreL (PLAVIX) tablet 75 mg 75 mg, oral, Daily, First dose on Fri10/13/23 at 0900, Look-alike/sound-alike medication - verify indication for use. 0831 (Given - Provider: Gely Chua RN) 0729 ([facility] Hold - Provider: Automatic Transfer Provider - Reason: Patient not available)0900 (Dose Auto Held - Provider: Automatic Transfer Provider)0917 ([facility] Unhold - Provider: Automatic Transfer Provider)1021 (Given - Provider: Gely Chua RN) 0958 (Given - Provider: David Florez RN) collagenase (SANTYL) ointment 1 Application 1 Application, topical, Daily, First dose on Fri10/13/23 at 1500, Apply to thigh wound . 2034 (Given - Provider: Jolene Almaguer RN) 0729 ([facility] Hold - Provider: Automatic Transfer Provider - Reason: Patient not available)0900 (Dose Auto Held - Provider: Automatic Transfer Provider)0917 ([facility] Unhold - Provider: Automatic Transfer Provider) 1000 (Given - Provider: David Florez, MICAH) dapagliflozin propanediol (FARXIGA) tablet 10 mg 10 mg, oral, Daily, First dose on Fri10/15/23 at 1130 1225 (Given - Provider: David Florez, MICAH) furosemide (LASIX) injection 40 mg (CANCELED) 40 mg, intravenous, Every 12 hours, First dose on Fri10/13/23 at 1630, Look-alike/sound-alike medication - verify indication for use. IVP rate = 20 mg/min 1703 (Given - Provider: Gely Chua RN) 0347 (Given - Provider: Jolene Almaguer RN)0729 ([facility] Hold - Provider: Automatic Transfer Provider - Reason: Patient not available)0917 ([facility] Unhold - Provider: Automatic Transfer Provider) furosemide [...] Entry - Provider: Gely Chua RN) 0729 ([facility] Hold - Provider: Automatic Transfer Provider - Reason: Patient not available)0917 ([facility] Unhold - Provider: Automatic Transfer Provider) metoprolol succinate XL (TOPROL XL) 24 hr tablet 25 mg (CANCELED) 25 mg, oral, Daily, First dose on Fri10/13/23 at 1630, Look-alike/sound-alike medication - verify indication for use. Do not crush or chew. 1805 (Given - Provider: Gely Chua RN) 0729 ([facility] Hold - Provider: Automatic Transfer Provider [...] Santiago, RN)0832 (Given - Provider: Gely Chua RN)203 (Given - Provider: Joleen Almaguer RN) 0729 ([facility] Hold - Provider: Automatic Transfer Provider - Reason: Patient not available)0900 (Dose Auto Held - Provider: Automatic Transfer Provider)0917 ([facility] Unhold - Provider: Automatic Transfer Provider)1023 (Given - Provider: Gely Chua RN)2158 (Given - Provider: Sae Santiago RN) 0958 (Given - Provider: David Florez, MICAH) rosuvastatin (CRESTOR) tablet 20 mg 20 mg, [...] 0958 (Given - Provider: David Florez, MICAH) sacubitriL-valsartan (ENTRESTO) 24-26 mg per tablet 1 [...] (Given - Provider: Mary Mccoy RN) 0729 ([facility] Hold - Provider: Automatic Transfer Provider - Reason: Patient not available)0900 (Dose Auto Held - Provider: Automatic Transfer Provider)0917 ([facility] Unhold - Provider: Automatic Transfer Provider)1024 (Given - Provider: Gely Chua, RN) 0958 (Given - Provider: David Florez, RN) valsartan (DIOVAN) tablet 40 mg (CANCELED) 40 mg, oral, Daily, First dose on Fri10/14/23 at 1115, Look-alike/sound-alike medication - verify indication for use. 1332 (Given - Provider: Gely Chua, RN) 0958 (Given - Provider: David Florez, MICAH) Continuous Medication Order 10/13/2023 10/14/2023 10/15/2023 heparin infusion 88568 units/500 mL in 0.45% NaCl (50 units/mL [...] Chua RN)0852 ([facility] Unhold - Provider: Wil Boyce, CHARTER BUS DRIVER-OIL SPRAYING MACHINE OPERATOR)0900 (Stop Bag - Provider: Gely Chua RN - Comment: off in photographic laboratory technician) PRN Medication Order 10/13/2023 10/14/2023 10/15/2023 acetaminophen [...] at 0913 2158 (Given - Provider: Sae Santiago, MICAH) 0432 (Given - Provider: Sae Santiago, MICAH) aspirin chewable tablet (CANCELED) Code/trauma/sedation medication, Starting on Fri10/14/23 at 0737, Intra-Procedure (CV) 0737 (Given - Provider: Tonia Jalloh, MICAH) calcium gluconate 3,000 mg in sodium chloride 0.9 % 100 mL IVPB(Linked Group 1) 3,000 mg, intravenous, at 130 mL/hr, Administer over 60 Minutes, As needed, for ionized calcium level less than 3 mg/dL, Starting on Fri10/12/23 at 2321, CALL PHYSICIAN if this dose is administered. Recheck ionized calcium 6 hours after infusion. Hold calcium replacement for phosphorus greater than 5.5 mg/dL. VESICANT (RED) 0635 (See Alternative - Provider: Sae Santiago RN)0735 (See Alternative - Provider: Gely Chua RN)1659 (See Alternative - Provider: Gely Chua RN)1759 (See Alternative - Provider: Gely Chua RN) 0046 (See Alternative - Provider: Jolene Almaguer, MICAH)0146 (See Alternative - Provider: Jolene Almaguer, MICAH)0729 ([facility] Hold - Provider: Automatic Transfer Provider - Reason: Patient not available)0917 ([facility] Unhold - Provider: Automatic Transfer Provider)1333 (See Alternative - Provider: Gely Chua RN)1433 (See Alternative - Provider: Gely Chua RN)2255 (See Alternative - Provider: Sae Santiago RN)2355 (See Alternative - Provider: Sae Santiago RN) calcium gluconate IVPB 1000 mg/50 mL (20 mg/mL premix)(Linked Group 1) 1,000 mg, intravenous, at 50 mL/hr, Administer over 60 Minutes, As needed, for ionized calcium level 3.5 to 4.4 mg/dL, Starting on Fri10/12/23 at 2321, Recheck ionized calcium 6 hours [...] Chua RN)2255 (New Bag - Provider: Sae Santiago, RN)2355 (Stop Bag - Provider: Sae Santiago, [...] (RED) 0635 (See Alternative - Provider: Sae Santiago, MICAH)0735 (See Alternative - Provider: Gely Chua RN)1659 (See Alternative - Provider: Gely Chua RN)1759 (See Alternative - Provider: Gely Chua RN) 0046 (See Alternative - Provider: Jolene Almaguer, MICAH)0146 (See Alternative - Provider: Jolene Almaguer, MICAH)0729 ([facility] Hold - Provider: Automatic Transfer Provider - Reason: Patient not available)0917 ([facility] Unhold - Provider: Automatic Transfer Provider)1333 (See Alternative - Provider: Gely Chua RN)1433 (See Alternative - Provider: Gely Chua, RN)2255 (See Alternative - Provider: Sae Santiago, RN)2355 (See Alternative - Provider: Sae Santiago, RN) dextrose (GLUTOSE) 40 % gel 15 g 15 g, oral, As needed, low blood sugar, blood glucose less than 70 mg/dL, Starting on 10/12/23 at 2321, If patient conscious and taking PO. If blood glucose is not greater than 70 mg/dL after initial treatment, repeat treatment. 728 ([facility] Hold - Provider: Automatic Transfer Provider - Reason: Patient not available)09 ([facility] Unhold - Provider: Automatic Transfer Provider) dextrose 5 % (D5W) infusion 100 mL/hr, intravenous, Continuous PRN, blood glucose less than 70 mg/dL, Starting on 10/12/23 at 2321, Use immediately following dextrose 50% or glucagon treatment for patients who are unconscious or NPO. Contact prescriber for additional orders. If blood glucose is not greater than 70 mg/dL after initial treatment, repeat treatment. 728 ([facility] Hold - Provider: Automatic Transfer Provider - Reason: Patient not available)916 ([facility] Unhold - Provider: Automatic Transfer Provider) [...] repeat treatment. VESICANT (RED) Warning: HYPERTONIC solution. 728 ([facility] Hold - Provider: Automatic Transfer Provider - Reason: Patient not available)916 ([facility] Unhold - Provider: Automatic Transfer Provider) diphenhydrAMINE (BENADRYL) injection 50 mg(Linked Group 2) 50 mg, intravenous, As needed, for previously documented contrast allergy, Starting on Fri10/13/23 at 1118, Scheduling/ADT, Administer one hour prior to procedure Look-alike/sound-alike medication - verify indication for use. 728 ([facility] Hold - Provider: Automatic Transfer Provider - Reason: Patient not available)09 ([facility] Unhold - Provider: Automatic Transfer Provider) [...] mg/dL after initial treatment, repeat treatment. 07 ([facility] Hold - Provider: Automatic Transfer Provider - Reason: Patient not available)09 ([facility] Unhold - Provider: Automatic Transfer Provider) iohexoL [...] RN)0919 (See Alternative - Provider: Gely Chua, RN) 0521 (New Bag - Provider: Jolene Almaguer RN)0721 (Stop Bag - Provider: Gely Chua, RN)07 ([facility] Hold - Provider: Automatic Transfer Provider [...] level 0.44 mmol/L or less, Starting on Fri10/12/23 at 2321, Use premix solution. Default to ionized magnesium level in cases where patient has both magnesium and ionized magnesium results. If administered, check ionized magnesium (or total magnesium if ionized magnesium unavailable) level 4 hours after infusion. 0519 (New Bag - Provider: Sae Santiago, RN)0919 (Stop Bag - Provider: Gely Chua, RN) 0521 (See Alternative - Provider: Jolene Almaguer, MICAH)0721 (See Alternative - Provider: Gely Chua, RN)0729 ([facility] Hold - Provider: Automatic Transfer Provider - Reason: Patient not available)0917 ([facility] Unhold - Provider: Automatic Transfer Provider) 0605 (See Alternative - Provider: Sae Santiago, MICAH)0805 (See Alternative - Provider: David Florez, MICAH) midazolam (PF) (VERSED) injection (CANCELED) Code/trauma/sedation medication, Starting on Fri10/14/23 at 0751, Intra-Procedure (CV) 0751 (Given - Provider: Tonia Jalloh, RN) midodrine (PROAMATINE) tablet 5 mg 5 mg, oral, Every 8 hours PRN, SBP <100, Starting on Fri10/13/23 at 0014, Look-alike/sound-alike medication - verify indication for use. 0729 ([facility] Hold - Provider: Automatic Transfer Provider - Reason: Patient not available)0917 ([facility] Unhold - Provider: Automatic Transfer Provider) [...] total dose not to exceed 10 mL. 0927 (Given - Provider: John Maldonado RN) potassium [...] Sae Santiago RN)0830 (Given - Provider: Gely Chua RN)1224 (Canceled Entry - Provider: Gely Chua RN) [...] Alternative - Provider: Gely Chua, RN) 0729 ([facility] Hold - Provider: Automatic Transfer Provider - Reason: Patient not available)0917 ([facility] Unhold - Provider: Automatic Transfer Provider) potassium [...] over a minimum of 1 hour. 0729 ([facility] Hold - Provider: Automatic Transfer Provider - Reason: Patient not available)09 ([facility] Unhold - Provider: Automatic Transfer Provider) [...] than 1.2 = 40 mEq VESICANT (YELLOW) 07 ([facility] Hold - Provider: Automatic Transfer Provider - Reason: Patient not available)09 ([facility] Unhold - Provider: Automatic Transfer Provider) [...] medication - verify indication for use. 0729 ([facility] Hold - Provider: Automatic Transfer Provider - Reason: Patient not available)09 ([facility] Unhold - Provider: Automatic Transfer Provider) [...] Give with a full glass of water. 07 ([facility] Hold - Provider: Automatic Transfer Provider - Reason: Patient not available)0917 ([facility] Unhold - Provider: Automatic Transfer Provider) sodium chloride 0.9 % flush 3 mL 3 mL, intravenous, As needed, line care, before and after each intermittent use, Starting on Fri10/14/23 at 0913 sodium chloride 0.9 % infusion 10 mL/hr, intravenous, Continuous PRN, to maintain patency of lines, Starting on 10/12/23 at 2321, Line #1 0729 ([facility] Hold - Provider: Automatic Transfer Provider - Reason: Patient not available)0917 ([facility] Unhold - Provider: Automatic Transfer Provider) sodium chloride 0.9 % infusion 10 mL/hr, intravenous, Continuous PRN, to maintain patency of lines, Starting on 10/12/23 at 2321, Line #2 0729 ([facility] Hold - Provider: Automatic Transfer Provider - Reason: Patient not available)0917 ([facility] Unhold - Provider: Automatic Transfer Provider) sodium chloride 0.9 % infusion 10 mL/hr, intravenous, Continuous PRN, to maintain patency of lines, Starting on 10/12/23 at 2321, Line #3 0729 ([facility] Hold - Provider: Automatic Transfer Provider - Reason: Patient not available)0917 ([facility] Unhold - Provider: Automatic Transfer Provider) [...] infusion complete. Infuse using central line access. 07 ([facility] Hold - Provider: Automatic Transfer Provider - Reason: Patient not available)0917 ([facility] Unhold - Provider: Automatic Transfer Provider) [...] level 4 hours after infusion complete. 07 ([facility] Hold - Provider: Automatic Transfer Provider - Reason: Patient not available)916 ([facility] Unhold - Provider: Automatic Transfer Provider) Linked [...] level 0.44 mmol/L or less, Starting on Fri10/12/23 at 2321, Use premix [...] BE BASED ON THE PRIMARY CLINICAL RECORDS. [facility]. provides no warranty or guarantee of the accuracy or completeness of information in this document.
[2024-02-20] MEDS: MORPHINE SULFATE 2 MG/ML SYRINGE IV ×2 (16:18→20:41)
[2024-02-20] MEDS: ENOXAPARIN SODIUM 40 MG/0.4 ML SYRINGE SUBQ (16:21)
--- NOTE | 2024-02-20 17:19 | XR_ITS ---
The [address] [address] Patient Name: ASHVIN RENE MRN: [id number] date: 1955 Sex: F Assigned Patient Location: [place] Current Patient Location: Accession/Order Number: [id number] Exam Date: 02/20/2024 18:10 Report Date: 02/20/2024 19:33 At the request of: SHAIKH SINCERE Procedure: XR chest 1V EXAM: XR chest 1V at 1734 hours HISTORY: pre operative clearance COMPARISON: 12/29/2023 TECHNIQUE: AP semierect portable chest x-ray FINDINGS: The heart is not enlarged and the vasculature is not distended. No acute infiltrate, effusion or pneumothorax is identified. Multiple sternal wire sutures are present. A loop recorder is noted. The osseous structures are grossly intact. XR/XR chest 1V IMPRESSION: No acute infiltrate or evidence of cardiac decompensation. The overall appearance of the chest is essentially unchanged. Electronically authenticated by: ELI RAYMOND Date: 02/20/2024 19:33
[2024-02-20] MEDS: ACETAMINOPHEN 325 MG TABLET 650 MG PO (17:55)
[2024-02-20] MEDS: OXYCODONE HCL 5 MG TABLET PO (17:55)
--- NOTE | 2024-02-20 18:13 | PM.HP ---
HPI H&P: HPI History of Present Illness Chief complaint: FALL, RT HIP FRACTURE Narrative: 68 y o female with hx of CAD, HFrEF presented to ED after she tripped over the curb and fell. She denies head trauma, LOC. She was brought over to ED via EMS. She is complaining of severe right pain, inability to ambulate due to pain. Work up in ED revealed acute displaced right femoral fracture. Orthopedic surgery was consulted and they plan to take patient to OR tomorrow for Hip arthroplasty. Upon my evaluation, patient had no active complaints to offer except for right hip pain. She denies CP, SOB, palpitations. Patient's last PCI was over 2-3 years ago when she required stent placement. Earlier this year, she had [facility] in October for Type 2 OK that showed severe multivessel CAD, patent stent in Lcx (placed 2 yerars ago), occluded SVG graft to PDA. Medical management was recommended for the patient. Most recent ECHO was in 11/04 -> showed severely reduced EF (20%), Trace TR/MR and no other sig sig cardiac structural abnormalities were noted. Opioid HPI Opioid Management Most Recent Pain and Opioid Data: Last Pain Scale 10 02/20/24 18:55 Last Pain Assessment 02/20/24 19:00 Last MAR Pain Assessment 02/20/24 18:55 Last ORT Total Score 0 02/20/24 16:02 Last ORT Risk Category Low Risk 02/20/24 16:02 Review of Systems ROS Status of ROS 10 or more systems reviewed and unremarkable except as noted in history and below [facility] Medical History (Updated 02/20/24 @ 19:08 by Shaikh David MD) GERD (gastroesophageal reflux disease) ?K21.9 - Gastro-esophageal reflux disease without esophagitis (ICD-10) Hypotension ?I95.9 - Hypotension, unspecified (ICD-10) Hypothyroidism ?E03.9 - Hypothyroidism, unspecified (ICD-10) CHF (congestive heart failure) ?I50.9 - Heart failure, unspecified (ICD-10) Non-STEMI (non-ST elevated myocardial infarction) ?I21.4 - Non-ST elevation (NSTEMI) myocardial infarction (ICD-10) Stroke ?I63.9 - Cerebral infarction, unspecified (ICD-10) Hip fracture, left ?S72.002A - Fracture of unspecified part of neck of left femur, initial encounter for closed fracture (ICD-10) Left tibial fracture ?S82.202A - Unspecified fracture of shaft of left tibia, initial encounter for closed fracture (ICD-10) Surgical History (Updated 11/04/23 @ 10:53 by Mary Barry NP) History of coronary artery bypass graft x 2 ?Z95.1 - Presence of aortocoronary bypass graft (ICD-10) History of right knee joint replacement ?Z96.651 - Presence of right artificial knee joint (ICD-10) Family History (Updated 11/04/23 @ 05:00 by Carolyn Thomas) Other Family history of diabetes mellitus Family history of hypertension Family history of myocardial infarction Social History (Updated 11/04/23 @ 05:02 by Carolyn Thomas) Within the past year, how often did you have a drink containing alcohol: never Score interpretation: A score less than 3 is consistent with normal alcohol consumption. Smoking status: Former smoker Non-prescribed substance use: denies use Previous occupational history: Retired Highest level of school completed/degree received: high school graduate Are you now , , , , never or living with a partner: In a typical week, how many times do you talk on the telephone with family, friends, or neighbors: 3 or more times per week How often do you get together with friends or relatives: 3 or more times per week Little interest or pleasure in doing things: not at all Feeling down, depressed, or hopeless: not at all Feel stressed/tense/nervous/anxious/difficulty sleeping: not at all Do you think of yourself as: straight/heterosexual Gender Identity: female Meds Home Medications and Allergies Home Medications ?Medication ?Instructions ?Recorded ?Confirmed ?Type clopidogrel 75 mg tablet 75 mg PO DAILY 10/12/23 02/20/24 History duloxetine 30 mg capsule,delayed 30 mg PO DAILY 10/12/23 02/20/24 History release famotidine 40 mg tablet 40 mg PO BEDTIME 10/12/23 02/20/24 History fludrocortisone 0.1 mg tablet 0.1 mg PO DAILY 10/12/23 02/20/24 History liothyronine 5 mcg tablet 10 mcg PO DAILY 10/12/23 02/20/24 History midodrine 10 mg tablet 10 mg PO TID 10/12/23 02/20/24 History montelukast 10 mg tablet 10 mg PO DAILY 10/12/23 02/20/24 History pantoprazole 40 mg tablet,delayed 40 mg PO .dinner 10/12/23 02/20/24 History release ranolazine 1,000 mg 1,000 mg PO Q12H 10/12/23 02/20/24 History tablet,extended release,12 hr rosuvastatin 20 mg tablet 20 mg PO DAILY 10/12/23 02/20/24 History sucralfate 1 gram tablet 1 g PO BID PRN vomiting/diarrhea 10/12/23 02/20/24 History trazodone 150 mg tablet 150 mg PO BEDTIME 10/12/23 02/20/24 History calcium citrate 250 mg PO DAILY 11/04/23 02/20/24 History cholecalciferol (vitamin D3) 125 5,000 unit PO TID 11/04/23 02/20/24 History mcg (5,000 unit) capsule dapagliflozin propanediol 10 mg 10 mg PO QAM 11/04/23 02/20/24 History tablet (Farxiga) ipratropium bromide 21 mcg (0.03 2 spray intranasal DAILY PRN 11/04/23 02/20/24 History %) nasal spray allergy symptoms midodrine 10 mg tablet 10 mg PO TID PRN hypotension 11/04/23 02/20/24 History spironolactone 25 mg tablet 12.5 mg PO DAILY 11/04/23 02/20/24 History torsemide 20 mg tablet 10 mg PO DAILY 11/04/23 02/20/24 History ferrous sulfate 325 mg (65 mg 325 mg PO DAILY 02/20/24 02/20/24 History iron) tablet (Feosol) fexofenadine 180 mg tablet 180 mg PO DAILY 02/20/24 02/20/24 History (Katharina Allergy) loperamide 2 mg capsule 2 mg PO QID PRN loose stool 02/20/24 02/20/24 History (Anti-Diarrheal (loperamide)) multivitamin (Daily Multi-Vitamin 1 tab PO DAILY 02/20/24 02/20/24 History tablet) nitroglycerin 0.4 mg sublingual 0.4 mg sublingual Q5M 02/20/24 02/20/24 History tablet ondansetron 4 mg disintegrating mg translingual Q4H PRN nausea and 02/20/24 History tablet vomiting oxycodone 5 mg tablet mg PO Q8H PRN pain 02/20/24 History pregabalin 50 mg capsule (Lyrica) 50 mg PO BEDTIME 02/20/24 02/20/24 History Allergies Allergy/AdvReac Type Severity Reaction Status Date / Time No Known Drug Allergies Allergy Verified 02/20/24 14:00 Exam Constitutional Vital Signs, click to edit/add: Last Vital Signs Temp 97.6 F 02/20/24 16:03 Pulse 84 02/20/24 16:03 Resp 18 02/20/24 16:03 BP 120/71 02/20/24 16:03 Pulse Ox 94 L 02/20/24 16:03 O2 Del Method Room Air 02/20/24 16:03 Documenting provider has reviewed patient's vital signs: yes Common normals: no apparent distress and oriented x3 General appearance: cooperative HENMT Common normals: normocephalic and head/scalp atraumatic Head and scalp: normocephalic and atraumatic Eye Common normals: conjunctivae normal and no scleral icterus Conjunctiva: conjunctiva(e) normal Respiratory Common normals: normal respiratory effort and clear to auscultation bilaterally Effort & inspection: able to speak in complete sentences Auscultation: clear to auscultation bilaterally Cardio Common normals: regular rate, S1 normal heart sound and S2 normal heart sound Rate: regular rate Heart sounds: S1 normal and S2 normal GI Common normals: Normal to inspection, nondistended, normoactive bowel sounds present, soft to palpation, non-tender and no hepatosplenomegaly Palpation: soft and no hepatosplenomegaly Extremity Other: RLE - limited ROM due to pain Neuro Common normals: oriented x3, moves all extremities and no focal motor deficits Psych Common normals: mental status grossly normal, denies hallucinations, denies homicidal ideation and denies suicidal ideation Results Labs Labs: Short CBC 02/20/24 Range/Units 14:23 WBC 4.0 (4.0-11.0) 10^3/uL Hgb 10.5 L (12.0-16.0) g/dL Hct 33.7 L (36.0-48.0) % Plt Count 263 (150-450) 10^3/uL BMP 02/20/24 14:23 Sodium 141 Potassium 4.2 Chloride 107 Carbon Dioxide 27.7 BUN 16.0 Creatinine 1.09 H Glucose 166 H Calcium 7.9 L Assessment and Plan Assessment and Plan (1) Fracture of right hip: Assessment and Plan: Displaced right femoral fracture. Patient admitted for Surgical repair of Hip Fracture. Patient on combination of oral/V narcotics for pain. PT/OT eval and will likely need rehab post operatively. Qualifiers: Encounter type: subsequent encounter Fracture healing: with routine healing Fracture type: closed Qualified Code(s): S72.001D - Fracture of unspecified part of neck of right femur, subsequent encounter for closed fracture with routine healing (2) Pre-operative clearance: Assessment and Plan: Patient has hx of CAD, HFrEF, HTN. Euvolemic, well optimized and appropriate medical treatment. Most recent LHC/ECHO in 11/04 -> patent stent in Lcx, occluded SVG graft to PDA, severely reduced EF but no other sig cardiac structural abnormality. Hip fracture is considered an emergency and optimally should be surgically managed within 48 hours. Given patient's prior cardiac/medical hx, she is at moderate risk of MACE. The risk is not prohibitive especially because the surgery is not elective. (3) CHF (congestive heart failure): Assessment and Plan: HFrEF. Euvolemic and medically optimized. Qualifiers: Heart failure chronicity: chronic Heart failure type: combined systolic and diastolic Qualified Code(s): I50.42 - Chronic combined systolic (congestive) and diastolic (congestive) heart failure (4) CAD (coronary artery disease): Assessment and Plan: s/p CABG and subsequently PCI 2 years ago. Most recent LHC 11/04 -> Severely reduced EF. No sig valvular pathology. Qualifiers: Associated angina: without angina Coronary Disease-Associated Artery/Lesion type: [place] artery [place] vs. transplanted heart: [place] heart Qualified Code(s): I25.10 - Atherosclerotic heart disease of [place] coronary artery without angina pectoris (5) GERD (gastroesophageal reflux disease): Assessment and Plan: C/w Pepcid Qualifiers: Esophagitis presence: without esophagitis Qualified Code(s): K21.9 - Gastro-esophageal reflux disease without esophagitis Urinary Catheter Management Urinary Catheter Management Urethral: Cath placed during this visit: yes Urethral indwelling: Yes Reason for continuing: measure accurate output Insertion date: 02/20/24 Insertion time: 15:21
[2024-02-20] MEDS: ATORVASTATIN CALCIUM 40 MG TABLET PO (21:53)
[2024-02-20] MEDS: FAMOTIDINE 20 MG TABLET 40 MG PO (21:53)
[2024-02-20] MEDS: PREGABALIN 50 MG CAPSULE PO (21:53)
[2024-02-20] MEDS: MONTELUKAST SODIUM 10 MG TABLET PO (21:53)
[2024-02-20] MEDS: MIDODRINE HCL 5 MG TABLET 10 MG PO (21:54)
[2024-02-20] MEDS: TRAZODONE HCL 50 MG TABLET 150 MG PO (21:54)
[2024-02-20] MEDS: CHOLECALCIFEROL (VITAMIN D3) 125 MCG/5,000 UNIT TABLET PO (21:54)
[2024-02-20] MEDS: RANOLAZINE 500 MG TAB.ER.12H PO (21:54)
[2024-02-21] VITALS (27 sets, daily range): BP systolic 90–118; BP diastolic 52–77; PULSE 83–115; TEMP 36.1–37.1; O2SAT 86–100
[2024-02-21] MEDS: HYDROMORPHONE HCL 1 MG/ML CARTRIDGE 0.5 MG IVP ×2 (00:09→04:13)
[2024-02-21 06:12] LABS: Basophils Percent Auto 0.6 % (0.2-2.0); Eosinophils Percent Auto 0.5 % (0.9-7.0); Hematocrit 29.5 % (36.0-48.0); Hemoglobin 9.3 g/dL (12.0-16.0); Immature Granulocytes Abs Auto 0.01 10^3/uL (0.00-0.03); Immature Granulocytes Pct Auto 0.2 % (0.0-0.5); Lymphocytes Absolute Auto 1.2 10^3/uL (1.2-3.8); Lymphocytes Percent Auto 19.4 % (20.5-60.0); Mean Corpuscular HGB Conc 31.5 g/dL (29.9-35.2); Mean Corpuscular Hemoglobin 35.2 pg (26.7-34.0); Mean Corpuscular Volume 111.7 fL (81.0-99.0); Mean Platelet Volume 9.8 fL (9.5-13.5); Monocytes Absolute Auto 0.6 10^3/uL (0.3-0.8); Monocytes Percent Auto 9.1 % (1.7-12.0); Neutrophils Absolute Auto 4.4 10^3/uL (1.4-6.5); Neutrophils Percent Auto 70.2 % (43.0-75.0); Platelet Count 266 10^3/uL (150-450); Red Blood Count 2.64 10^6/uL (4.20-5.40); Red Cell Distribution Width 12.7 % (11.0-15.0); White Blood Count 6.2 10^3/uL (4.0-11.0)
[2024-02-21 06:21] LABS: Alanine Aminotransferase 27 U/L (14-59); Albumin Globulin Ratio 0.7; Albumin Level 1.8 g/dL (3.4-5.0); Alkaline Phosphatase 108 U/L (46-116); Anion Gap 8.5; Aspartate Amino Transferase 24 U/L (15-37); BUN Creatinine Ratio 16.5; Bilirubin Total 0.2 mg/dL (0.2-1.0); Calcium 7.8 mg/dL (8.5-10.1); Carbon Dioxide 26.2 mmol/L (21.0-32.0); Chloride 103 mmol/L (98-107); Estimated GFR (African America >60 (>=60); Estimated GFR (Non-African Ame >60 (>=60); Globulin 2.7 g/dL; Glucose 120 mg/dL (74-106); Potassium 3.7 mmol/L (3.5-5.1); Sodium 134 mmol/L (136-145); Total Protein 4.5 g/dL (6.4-8.2)
[2024-02-21] MEDS: HYDROMORPHONE HCL 0.5 MG/0.5 ML SYRINGE IV ×3 (08:10→14:27)
--- NOTE | 2024-02-21 08:40 | FL_ITS ---
The [address] [address] Patient Name: ASHVIN RENE MRN: [id number] date: 1955 Sex: F Assigned Patient Location: [place] Current Patient Location: [place] Accession/Order Number: [id number] Exam Date: 02/21/2024 08:45 Report Date: 02/27/2024 11:57 At the request of: BIBI OVIEDO Procedure: FL fluoroscopy <1hr NON-READ EXAM: FL fluoroscopy <1hr NON-READ HISTORY: TECHNIQUE: FINDINGS: Please see Operative Report. Electronically authenticated by: RADIOLOGIST NO Date: 02/27/2024 11:57
--- NOTE | 2024-02-21 08:58 | P.ORCN_ITS ---
History of Present Illness HPI Consult date: 02/21/24 Consult reason: fracture (Hip fracture) Chief complaint: FALL, RT HIP FRACTURE Narrative: Patient is an 68-year-old with multiple medical conditions to tripped and fell over a curb yesterday with right hip pain and inability to bear weight. She was escorted to the emergency room where x-rays revealed a right hip fracture. Patient is being admitted for operative treatment of her injury. She denies having pain elsewhere. She denies chest pain. Review of Systems ROS Constitutional Denies: fever or change in weight Cardiovascular Denies: chest pain Respiratory Denies: shortness of breath Gastrointestinal Denies: abdominal pain Musculoskeletal Reports: joint pain (Right hip pain) Neurological Denies: dizziness, vertigo or confusion [facility] Medical History (Updated 02/20/24 @ 19:08 by Shaikh David MD) GERD (gastroesophageal reflux disease) ?K21.9 - Gastro-esophageal reflux disease without esophagitis (ICD-10) Hypotension ?I95.9 - Hypotension, unspecified (ICD-10) Hypothyroidism ?E03.9 - Hypothyroidism, unspecified (ICD-10) CHF (congestive heart failure) ?I50.9 - Heart failure, unspecified (ICD-10) Non-STEMI (non-ST elevated myocardial infarction) ?I21.4 - Non-ST elevation (NSTEMI) myocardial infarction (ICD-10) Stroke ?I63.9 - Cerebral infarction, unspecified (ICD-10) Hip fracture, left ?S72.002A - Fracture of unspecified part of neck of left femur, initial encounter for closed fracture (ICD-10) Left tibial fracture ?S82.202A - Unspecified fracture of shaft of left tibia, initial encounter for closed fracture (ICD-10) Surgical History (Updated 11/04/23 @ 10:53 by Mary Barry NP) History of coronary artery bypass graft x 2 ?Z95.1 - Presence of aortocoronary bypass graft (ICD-10) History of right knee joint replacement ?Z96.651 - Presence of right artificial knee joint (ICD-10) Family History (Updated 11/04/23 @ 05:00 by Carolyn Thomas) Other Family history of diabetes mellitus Family history of hypertension Family history of myocardial infarction Social History (Updated 11/04/23 @ 05:02 by Carolyn Thomas) Within the past year, how often did you have a drink containing alcohol: never Score interpretation: A score less than 3 is consistent with normal alcohol consumption. Smoking status: Former smoker Non-prescribed substance use: denies use Previous occupational history: Retired Highest level of school completed/degree received: high school graduate Are you now , , , , never or living with a partner: In a typical week, how many times do you talk on the telephone with family, friends, or neighbors: 3 or more times per week How often do you get together with friends or relatives: 3 or more times per week Little interest or pleasure in doing things: not at all Feeling down, depressed, or hopeless: not at all Feel stressed/tense/nervous/anxious/difficulty sleeping: not at all Do you think of yourself as: straight/heterosexual Gender Identity: female Meds Home Medications and Allergies Home Medications ?Medication ?Instructions ?Recorded ?Confirmed ?Type clopidogrel 75 mg tablet 75 mg PO DAILY 10/12/23 02/20/24 History duloxetine 30 mg capsule,delayed 30 mg PO DAILY 10/12/23 02/20/24 History release famotidine 40 mg tablet 40 mg PO BEDTIME 10/12/23 02/20/24 History fludrocortisone 0.1 mg tablet 0.1 mg PO DAILY 10/12/23 02/20/24 History liothyronine 5 mcg tablet 10 mcg PO DAILY 10/12/23 02/20/24 History midodrine 10 mg tablet 10 mg PO TID 10/12/23 02/20/24 History montelukast 10 mg tablet 10 mg PO DAILY 10/12/23 02/20/24 History pantoprazole 40 mg tablet,delayed 40 mg PO .dinner 10/12/23 02/20/24 History release ranolazine 1,000 mg 1,000 mg PO Q12H 10/12/23 02/20/24 History tablet,extended release,12 hr rosuvastatin 20 mg tablet 20 mg PO DAILY 10/12/23 02/20/24 History sucralfate 1 gram tablet 1 g PO BID PRN vomiting/diarrhea 10/12/23 02/20/24 History trazodone 150 mg tablet 150 mg PO BEDTIME 10/12/23 02/20/24 History calcium citrate 250 mg PO DAILY 11/04/23 02/20/24 History cholecalciferol (vitamin D3) 125 5,000 unit PO TID 11/04/23 02/20/24 History mcg (5,000 unit) capsule dapagliflozin propanediol 10 mg 10 mg PO QAM 11/04/23 02/20/24 History tablet (Farxiga) ipratropium bromide 21 mcg (0.03 2 spray intranasal DAILY PRN 11/04/23 02/20/24 History %) nasal spray allergy symptoms midodrine 10 mg tablet 10 mg PO TID PRN hypotension 11/04/23 02/20/24 History spironolactone 25 mg tablet 12.5 mg PO DAILY 11/04/23 02/20/24 History torsemide 20 mg tablet 10 mg PO DAILY 11/04/23 02/20/24 History ferrous sulfate 325 mg (65 mg 325 mg PO DAILY 02/20/24 02/20/24 History iron) tablet (Feosol) fexofenadine 180 mg tablet 180 mg PO DAILY 02/20/24 02/20/24 History (Katharina Allergy) loperamide 2 mg capsule 2 mg PO QID PRN loose stool 02/20/24 02/20/24 History (Anti-Diarrheal (loperamide)) multivitamin (Daily Multi-Vitamin 1 tab PO DAILY 02/20/24 02/20/24 History tablet) nitroglycerin 0.4 mg sublingual 0.4 mg sublingual Q5M 02/20/24 02/20/24 History tablet pregabalin 50 mg capsule (Lyrica) 50 mg PO BEDTIME 02/20/24 02/20/24 History Allergies Allergy/AdvReac Type Severity Reaction Status Date / Time No Known Drug Allergies Allergy Verified 02/20/24 14:00 Exam Narrative Exam Narrative: On exam her right hip is shortened and rotated. Skin is intact. Right hip pain with any range of motion. Skin is intact. Good capillary refill. Wiggles toes. Normal sensation. Constitutional Vital Signs, click to edit/add: Last Vital Signs Temp 98.2 F 02/21/24 06:00 Pulse 94 H 02/21/24 06:00 Resp 20 02/21/24 06:00 BP 102/68 02/21/24 06:00 Pulse Ox 95 02/21/24 07:50 O2 Del Method Room Air 02/21/24 06:00 Results Labs Labs: Abnormal lab results 02/20/24 02/20/24 02/21/24 Range/Units 14:23 18:38 05:32 RBC 2.94 L 2.64 L (4.20-5.40) 10^6/uL Hgb 10.5 L 9.3 L (12.0-16.0) g/dL Hct 33.7 L 29.5 L (36.0-48.0) % MCV 114.6 H 111.7 H (81.0-99.0) fL MCH 35.7 H 35.2 H (26.7-34.0) pg Lymph % (Auto) 19.4 L (20.5-60.0) % Eos % (Auto) 0.5 L (0.9-7.0) % Sodium 134 L (136-145) mmol/L Creatinine 1.09 H (0.55-1.02) mg/dL Est GFR (Non-Af Amer) 50 L (>=60) Glucose 166 H 120 H (74-106) mg/dL Calcium 7.9 L 7.8 L (8.5-10.1) mg/dL NT-Pro-B Natriuret Pep 6773.0 H* 3848.0 H* (<=900.0) pg/mL Total Protein 4.5 L (6.4-8.2) g/dL Albumin 1.8 L (3.4-5.0) g/dL H & H 02/20/24 02/21/24 Range/Units 14:23 05:32 Hgb 10.5 L 9.3 L (12.0-16.0) g/dL Hct 33.7 L 29.5 L (36.0-48.0) % Coagulation 02/20/24 Range/Units 14:23 INR 1.09 All other labs normal. Diagnostic results Hip x-ray: image reviewed (Basicervical right hip fracture with extension into the intertrochanteric region) Assessment and Plan Assessment and Plan (1) Fracture of right hip: Qualifiers: Encounter type: subsequent encounter Fracture healing: with routine healing Fracture type: closed Qualified Code(s): S72.001D - Fracture of unspecified part of neck of right femur, subsequent encounter for closed fracture with routine healing (2) Pre-operative clearance: (3) CHF (congestive heart failure): Qualifiers: Heart failure chronicity: chronic Heart failure type: combined systolic and diastolic Qualified Code(s): I50.42 - Chronic combined systolic (congestive) and diastolic (congestive) heart failure (4) CAD (coronary artery disease): Qualifiers: Coronary Disease-Associated Artery/Lesion type: [place] artery [place] vs. transplanted heart: [place] heart Associated angina: without angina Qualified Code(s): I25.10 - Atherosclerotic heart disease of [place] coronary artery without angina pectoris (5) GERD (gastroesophageal reflux disease): Qualifiers: Esophagitis presence: without esophagitis Qualified Code(s): K21.9 - Gastro-esophageal reflux disease without esophagitis Plan I have recommended a right hip intramedullary nailing to the patient and family. I have discussed risks of this injury and surgery including risk of chronic pain, need for additional procedures, heart attack, pneumonia stroke and loss of life. I have discussed the benefits of the procedure as well. After discussion of risks and benefits they have elected to proceed.
[2024-02-21] MEDS: CEFAZOLIN SODIUM 1,000 MG VIAL 2000 MG IV (09:00)
[2024-02-21] MEDS: BUPIVACAINE HCL 0.5% PF 50 MG/10 ML VIAL 20 ML INJ (10:08)
[2024-02-21] MEDS: LIDOCAINE HCL 1%-EPINEPHRINE 1:100,000 10 ML MDV INJ (10:08)
--- NOTE | 2024-02-21 10:23 | P.ORPRC_ITS ---
Procedure Note Date of procedure: 02/21/24 Pre-op diagnosis: Right hip fracture Post-op diagnosis: same as pre-op Procedure: Procedure(s): Right hip intramedullary nailing Estimated Blood Loss (mL): less than 100 Complications: None Detailed Description of Procedure: After informed consent was obtained the patient was brought to the operating room where general anesthetic was administered. Patient was placed on the fracture table and using traction and manipulation reduction was performed and confirmed on multiple fluoroscopy views. The right hip and leg were prepped and draped in the usual sterile fashion. A 5 cm incision was made proximal to the greater trochanter in line with the femur. Hemostasis achieved with Bovie. Fascia was incised in line with the incision. The guidepin for the Synthes TFNa was placed on the greater trochanter and the appropriate position on the AP and lateral planes and then advanced and then overreamed in the intertrochanteric region. The Synthes short nail was sized to 12 mm in diameter and the nail was then placed. Through a more distal incision the guidepin was placed in the appropriate position in the femoral head. This was measured, overreamed and then the 95 millimeter spiral blade was placed locked into position and then a half turn counterclockwise was placed to allow for compression. The fracture was compressed. Through the more distal incision the locking screw was placed in the standard fashion. Final x-rays in multiple views revealed a reduced hip fracture with appropriate implant placement and lengths. Wounds were irrigated. Fascia was repaired with nonabsorbable suture. Skin was closed in standard fashion in layers. Sterile dressing was placed. Patient was awakened and brought to the recovery room in stable condition. There were no intraoperative or immediate postoperative complications. Anesthesia: General-LMA Surgeon: David Pantoja Outpatient Admitting Clerk: Jaimee Chavez Estimated blood loss (mL): 50 Pathology: none sent Condition: stable Disposition: PACU
--- NOTE | 2024-02-21 10:34 | PC.NURSE ---
1027 pain medication was given to patient. Patient states she hurts but she can tolerate pain.
--- NOTE | 2024-02-21 11:01 | P.PN_ITS ---
Progress Note: Subjective Subjective Interval history: Patient resting comfortably in bed although she does state her pain is still persisting. Denies chest pain or shortness of breath. She does have a history of coronary artery disease no recent testing Exam Constitutional Vital Signs, click to edit/add: Last Vital Signs Temp 98.2 F 02/21/24 10:18 Pulse 93 H 02/21/24 10:55 Resp 16 02/21/24 10:55 BP 95/52 02/21/24 10:50 Pulse Ox 98 02/21/24 10:55 O2 Del Method Room Air 02/21/24 10:48 Documenting provider has reviewed patient's vital signs: yes Common normals: no apparent distress and oriented x3 General appearance: cooperative HENMT Common normals: normocephalic and head/scalp atraumatic Head and scalp: normocephalic and atraumatic Eye Common normals: conjunctivae normal and no scleral icterus Conjunctiva: conjunctiva(e) normal Respiratory Common normals: normal respiratory effort and clear to auscultation bilaterally Effort & inspection: able to speak in complete sentences Auscultation: clear to auscultation bilaterally Cardio Common normals: regular rate, S1 normal heart sound and S2 normal heart sound Rate: regular rate Heart sounds: S1 normal and S2 normal GI Common normals: Normal to inspection, nondistended, normoactive bowel sounds present, soft to palpation, non-tender and no hepatosplenomegaly Palpation: soft and no hepatosplenomegaly Extremity Other: RLE - limited ROM due to pain Neuro Common normals: oriented x3, moves all extremities and no focal motor deficits Psych Common normals: mental status grossly normal, denies hallucinations, denies homicidal ideation and denies suicidal ideation Progress Note: Objective Labs Labs: Short CBC 02/20/24 02/21/24 Range/Units 14:23 05:32 WBC 4.0 6.2 (4.0-11.0) 10^3/uL Hgb 10.5 L 9.3 L (12.0-16.0) g/dL Hct 33.7 L 29.5 L (36.0-48.0) % Plt Count 263 266 (150-450) 10^3/uL BMP 02/20/24 02/21/24 14:23 05:32 Sodium 141 134 L Potassium 4.2 3.7 Chloride 107 103 Carbon Dioxide 27.7 26.2 BUN 16.0 15.0 Creatinine 1.09 H 0.91 Glucose 166 H 120 H Calcium 7.9 L 7.8 L Liver Function 02/21/24 Range/Units 05:32 Total Bilirubin 0.2 (0.2-1.0) mg/dL AST 24 (15-37) U/L ALT 27 (14-59) U/L Alkaline Phosphatase 108 (46-116) U/L Albumin 1.8 L (3.4-5.0) g/dL Progress Note: A&P Assessment and Plan (1) Fracture of right hip: Qualifiers: Encounter type: subsequent encounter Fracture healing: with routine healing Fracture type: closed Qualified Code(s): S72.001D - Fracture of unspecified part of neck of right femur, subsequent encounter for closed fracture with routine healing (2) Pre-operative clearance: (3) CHF (congestive heart failure): Qualifiers: Heart failure chronicity: chronic Heart failure type: combined systolic and diastolic Qualified Code(s): I50.42 - Chronic combined systolic (congestive) and diastolic (congestive) heart failure (4) CAD (coronary artery disease): Qualifiers: Associated angina: without angina Coronary Disease-Associated Artery/Lesion type: [place] artery [place] vs. transplanted heart: [place] heart Qualified Code(s): I25.10 - Atherosclerotic heart disease of [place] coronary artery without angina pectoris (5) GERD (gastroesophageal reflux disease): Qualifiers: Esophagitis presence: without esophagitis Qualified Code(s): K21.9 - Gastro-esophageal reflux disease without esophagitis Plan Findings on admission: Right hip pain secondary to right hip fracture Fracture of right hip: Surgery this morning. Plan per Dr. Pantoja Pre-operative clearance: Patient has hx of CAD, HFrEF, HTN. Euvolemic, well optimized and appropriate medical treatment. Most recent LHC/ECHO in 11/04 -> patent stent in Lcx, occluded SVG graft to PDA, severely reduced EF but no other sig cardiac structural abnormality. Hip fracture is considered an emergency and optimally should be surgically managed within 48 hours. Given patient's prior cardiac/medical hx, she is at moderate risk of MACE. The risk is not prohibitive especially because the surgery is not elective. CHF (congestive heart failure): Maintains euvolemia, saline lock, continue with home diuretics low dosing CAD (coronary artery disease): s/p CABG and subsequently PCI 2 years ago. Most recent [facility] 11/04 -> Severely reduced EF. No sig valvular pathology. Patient without current symptoms. Continue to monitor. GERD (gastroesophageal reflux disease): Continue with current medications, no symptoms Acute blood loss anemia secondary to the hip fracture. Monitor closely status post surgical intervention Severe protein calorie malnutrition-diet management and diet supplementation Hyponatremia-monitor daily, down somewhat today saying locking may help Hyperglycemia-monitor daily Admission status: Patient with hip fracture, repair today, medically necessary treatment will span more than 2 midnights. Inpatient status Urinary Catheter Management Urinary Catheter Management Urethral: Cath placed during this visit: yes Urethral indwelling: Yes Reason for continuing: measure accurate output Insertion date: 02/20/24 Insertion time: 15:21
[2024-02-21] MEDS: ENOXAPARIN SODIUM 40 MG/0.4 ML SYRINGE SUBQ (16:21)
[2024-02-21] MEDS: CEFAZOLIN SODIUM/DEXTROSE,ISO 2 GM/50 ML PIGGYBACK IV (17:03)
[2024-02-21] MEDS: ACETAMINOPHEN 500 MG TABLET 1000 MG PO (18:02)
[2024-02-21] MEDS: OXYCODONE HCL 5 MG TABLET PO (18:02)
[2024-02-21] MEDS: MIDODRINE HCL 5 MG TABLET 10 MG PO (21:18)
[2024-02-21] MEDS: FAMOTIDINE 20 MG TABLET 40 MG PO (21:19)
[2024-02-21] MEDS: TRAZODONE HCL 50 MG TABLET 150 MG PO (21:19)
[2024-02-21] MEDS: CHOLECALCIFEROL (VITAMIN D3) 125 MCG/5,000 UNIT TABLET PO (21:19)
[2024-02-21] MEDS: PREGABALIN 50 MG CAPSULE PO (21:19)
[2024-02-21] MEDS: ATORVASTATIN CALCIUM 40 MG TABLET PO (21:19)
[2024-02-21] MEDS: RANOLAZINE 500 MG TAB.ER.12H PO (21:19)
[2024-02-21] MEDS: MONTELUKAST SODIUM 10 MG TABLET PO (21:19)
[2024-02-22] VITALS (19 sets, daily range): BP systolic 94–111; BP diastolic 58–75; PULSE 71–92; TEMP 36.7–37.1; O2SAT 78–99
[2024-02-22] MEDS: CEFAZOLIN SODIUM/DEXTROSE,ISO 2 GM/50 ML PIGGYBACK IV ×2 (02:17→09:26)
[2024-02-22 05:42] LABS: Basophils Percent Auto 0.2 % (0.2-2.0); Eosinophils Percent Auto 0.2 % (0.9-7.0); Hematocrit 28.7 % (36.0-48.0); Hemoglobin 9.1 g/dL (12.0-16.0); Immature Granulocytes Abs Auto 0.01 10^3/uL (0.00-0.03); Immature Granulocytes Pct Auto 0.2 % (0.0-0.5); Lymphocytes Absolute Auto 1.1 10^3/uL (1.2-3.8); Lymphocytes Percent Auto 18.9 % (20.5-60.0); Mean Corpuscular HGB Conc 31.7 g/dL (29.9-35.2); Mean Corpuscular Hemoglobin 35.7 pg (26.7-34.0); Mean Corpuscular Volume 112.5 fL (81.0-99.0); Mean Platelet Volume 9.5 fL (9.5-13.5); Monocytes Absolute Auto 0.8 10^3/uL (0.3-0.8); Monocytes Percent Auto 12.5 % (1.7-12.0); Neutrophils Absolute Auto 4.1 10^3/uL (1.4-6.5); Platelet Count 266 10^3/uL (150-450); Red Cell Distribution Width 12.6 % (11.0-15.0)
[2024-02-22] MEDS: OMEPRAZOLE 40 MG CAPSULE.DR PO (05:47)
[2024-02-22] MEDS: MIDODRINE HCL 5 MG TABLET 10 MG PO ×3 (05:47→21:07)
[2024-02-22] MEDS: CHOLECALCIFEROL (VITAMIN D3) 125 MCG/5,000 UNIT TABLET PO ×3 (05:47→21:07)
[2024-02-22 05:58] LABS: Alanine Aminotransferase 20 U/L (14-59); Albumin Globulin Ratio 0.6; Albumin Level 1.7 g/dL (3.4-5.0); Alkaline Phosphatase 95 U/L (46-116); Anion Gap 11.8; Aspartate Amino Transferase 18 U/L (15-37); BUN Creatinine Ratio 19.1; Bilirubin Total 0.2 mg/dL (0.2-1.0); Carbon Dioxide 26.7 mmol/L (21.0-32.0); Chloride 104 mmol/L (98-107); Estimated GFR (African America >60 (>=60); Estimated GFR (Non-African Ame 59 (>=60); Glucose 112 mg/dL (74-106); Potassium 4.5 mmol/L (3.5-5.1); Sodium 138 mmol/L (136-145); Total Protein 4.7 g/dL (6.4-8.2)
[2024-02-22 06:00] LABS: Red Blood Count 2.55 10^6/uL (4.20-5.40)
--- NOTE | 2024-02-22 08:44 | P.PN_ITS ---
Progress Note: Subjective Subjective Interval history: No complaints this morning. Pain in groin as expected Exam Constitutional Vital Signs, click to edit/add: Last Vital Signs Temp 98.8 F 02/22/24 08:10 Pulse 90 02/22/24 08:10 Resp 16 02/22/24 08:10 BP 111/75 02/22/24 08:10 Pulse Ox 96 02/22/24 08:10 O2 Del Method Room Air 02/22/24 08:10 O2 Flow Rate 2 02/22/24 04:06 Documenting provider has reviewed patient's vital signs: yes Common normals: no apparent distress and oriented x3 General appearance: cooperative HENGA Common normals: normocephalic and head/scalp atraumatic Head and scalp: normocephalic and atraumatic Eye Common normals: conjunctivae normal and no scleral icterus Conjunctiva: conjunctiva(e) normal Respiratory Common normals: normal respiratory effort and clear to auscultation bilaterally Effort & inspection: able to speak in complete sentences Auscultation: clear to auscultation bilaterally Cardio Common normals: regular rate, S1 normal heart sound and S2 normal heart sound Rate: regular rate Heart sounds: S1 normal and S2 normal GI Common normals: Normal to inspection, nondistended, normoactive bowel sounds present, soft to palpation, non-tender and no hepatosplenomegaly Palpation: soft and no hepatosplenomegaly Extremity Other: RLE - limited ROM due to pain Neuro Common normals: oriented x3, moves all extremities and no focal motor deficits Psych Common normals: mental status grossly normal, denies hallucinations, denies homicidal ideation and denies suicidal ideation Progress Note: Objective Labs Labs: Short CBC 02/22/24 Range/Units 05:25 WBC 6.0 (4.0-11.0) 10^3/uL Hgb 9.1 L (12.0-16.0) g/dL Hct 28.7 L (36.0-48.0) % Plt Count 266 (150-450) 10^3/uL BMP 02/22/24 05:25 Sodium 138 Potassium 4.5 Chloride 104 Carbon Dioxide 26.7 BUN 18.0 Creatinine 0.94 Glucose 112 H Calcium 8.0 L Liver Function 02/22/24 Range/Units 05:25 Total Bilirubin 0.2 (0.2-1.0) mg/dL AST 18 (15-37) U/L ALT 20 (14-59) U/L Alkaline Phosphatase 95 (46-116) U/L Albumin 1.7 L (3.4-5.0) g/dL Progress Note: A&P Assessment and Plan (1) Fracture of right hip: Qualifiers: Encounter type: subsequent encounter Fracture healing: with routine healing Fracture type: closed Qualified Code(s): S72.001D - Fracture of unspecified part of neck of right femur, subsequent encounter for closed fracture with routine healing (2) Pre-operative clearance: (3) CHF (congestive heart failure): Qualifiers: Heart failure chronicity: chronic Heart failure type: combined systolic and diastolic Qualified Code(s): I50.42 - Chronic combined systolic (congestive) and diastolic (congestive) heart failure (4) CAD (coronary artery disease): Qualifiers: Associated angina: without angina Coronary Disease-Associated Artery/Lesion type: [place] artery [place] vs. transplanted heart: [place] heart Qualified Code(s): I25.10 - Atherosclerotic heart disease of [place] coronary artery without angina pectoris (5) GERD (gastroesophageal reflux disease): Qualifiers: Esophagitis presence: without esophagitis Qualified Code(s): K21.9 - Gastro-esophageal reflux disease without esophagitis Plan Findings on admission: Right hip pain secondary to right hip fracture Fracture of right hip: Surgery02/20. Plan per Dr. Pantoja Pre-operative clearance: Patient has hx of CAD, HFrEF, HTN. Euvolemic, well optimized and appropriate medical treatment. Most recent LHC/ECHO in 11/04 -> patent stent in Lcx, occluded SVG graft to PDA, severely reduced EF but no other sig cardiac structural abnormality. Hip fracture is considered an emergency and optimally should be surgically managed within 48 hours. Given patient's prior cardiac/medical hx, she is at moderate risk of MACE. The risk is not prohibitive especially because the surgery is not elective. CHF (congestive heart failure): Blood pressure down today. Will hold off on diuretics and blood pressure medication-BNP is improved today CAD (coronary artery disease): s/p CABG and subsequently PCI 2 years ago. Most recent [facility] 11/04 -> Severely reduced EF. No sig valvular pathology. Patient without current symptoms. Continue to monitor. GERD (gastroesophageal reflux disease): Continue with current medications, no symptoms Acute blood loss anemia secondary to the hip fracture. Monitor closely status post surgical intervention-stable Severe protein calorie malnutrition-diet management and diet supplementation- deteriorated Hyponatremia-monitor daily, down somewhat today saying locking may help-improved Hyperglycemia-monitor daily-patient says she is not a diabetic, will advance diet to regular Admission status: Patient with hip fracture, repair today, medically necessary treatment will span more than 2 midnights. Inpatient status Urinary Catheter Management Urinary Catheter Management Urethral: Cath placed during this visit: yes Urethral indwelling: Yes Reason for continuing: measure accurate output Insertion date: 02/20/24 Insertion time: 15:21
[2024-02-22] MEDS: OXYCODONE HCL 5 MG TABLET PO ×3 (09:24→22:54)
[2024-02-22] MEDS: ENSURE HP 237 ML LIQUID PO (09:24)
[2024-02-22] MEDS: PROSTAT 15 GM PROTEIN/100 CAL 30 ML LIQUID PACKET PO (09:24)
[2024-02-22] MEDS: FLUDROCORTISONE ACETATE 0.1 MG TABLET 0.05 MG PO (09:25)
[2024-02-22] MEDS: METOPROLOL TARTRATE 25 MG TABLET PO ×2 (09:25→21:07)
[2024-02-22] MEDS: LIOTHYRONINE SODIUM 5 MCG TABLET 10 MCG PO (09:25)
[2024-02-22] MEDS: RANOLAZINE 500 MG TAB.ER.12H PO ×2 (09:25→21:07)
[2024-02-22] MEDS: DULOXETINE HCL 30 MG CAPSULE.DR PO (09:25)
--- NOTE | 2024-02-22 09:42 | PM.ORPN ---
Progress Note: A&P Assessment and Plan (1) Fracture of right hip: Assessment and Plan: POD #1 R Hip IM Nail - Acute Blood loss anemia secondary to fracture/surgery Hgb 10.5 on admission trended down to 9.1 post operatively, vitals stable overnight. - WBAT - DVT prophylaxis - PT/OT eval - Pain control per Hospitalist - Follow up in 2-[address] Pantoja Qualifiers: Encounter type: subsequent encounter Fracture healing: with routine healing Fracture type: closed Qualified Code(s): S72.001D - Fracture of unspecified part of neck of right femur, subsequent encounter for closed fracture with routine healing (2) Pre-operative clearance: (3) CHF (congestive heart failure): Qualifiers: Heart failure chronicity: chronic Heart failure type: combined systolic and diastolic Qualified Code(s): I50.42 - Chronic combined systolic (congestive) and diastolic (congestive) heart failure (4) CAD (coronary artery disease): Qualifiers: Coronary Disease-Associated Artery/Lesion type: [place] artery [place] vs. transplanted heart: [place] heart Associated angina: without angina Qualified Code(s): I25.10 - Atherosclerotic heart disease of [place] coronary artery without angina pectoris (5) GERD (gastroesophageal reflux disease): Qualifiers: Esophagitis presence: without esophagitis Qualified Code(s): K21.9 - Gastro-esophageal reflux disease without esophagitis Subjective Subjective Interval history: Pt is POD #1 from R Hip IM Nail. Pts pain is controlled this morning with Oxycodone and Tylenol, but having a lot of muscle spasms. She did get up a little with PT. Exam Narrative Exam Narrative: On exam patient is in no distress, age appropriate, alert and oriented x 3. On inspection dressing is c/d/i, no distal erythema or warmth to touch. Pt is distall NV intact. Wiggles toes. 5/5 DF/PF. Sensation intact to light touch. +DP pulse RLE. Constitutional Vital Signs, click to edit/add: Last Vital Signs Temp 98.8 F 02/22/24 08:10 Pulse 90 02/22/24 08:10 Resp 16 02/22/24 08:10 BP 111/75 02/22/24 08:10 Pulse Ox 96 02/22/24 08:10 O2 Del Method Room Air 02/22/24 08:10 O2 Flow Rate 2 02/22/24 04:06 Urinary Catheter Management Urinary Catheter Management Urethral: Cath placed during this visit: yes Urethral indwelling: Yes Reason for continuing: pelvic fractures Insertion date: 02/20/24 Insertion time: 15:21
[2024-02-22] MEDS: ONDANSETRON PF 4 MG/2 ML VIAL IV (09:49)
[2024-02-22] MEDS: ACETAMINOPHEN 500 MG TABLET 1000 MG PO ×2 (10:37→22:54)
[2024-02-22] MEDS: HYDROMORPHONE HCL 0.5 MG/0.5 ML SYRINGE IV (12:32)
[2024-02-22] MEDS: ENOXAPARIN SODIUM 40 MG/0.4 ML SYRINGE SUBQ (18:30)
[2024-02-22] MEDS: ATORVASTATIN CALCIUM 40 MG TABLET PO (21:07)
[2024-02-22] MEDS: MONTELUKAST SODIUM 10 MG TABLET PO (21:07)
[2024-02-22] MEDS: PREGABALIN 50 MG CAPSULE PO (21:07)
[2024-02-22] MEDS: FAMOTIDINE 20 MG TABLET 40 MG PO (21:07)
[2024-02-22] MEDS: TRAZODONE HCL 50 MG TABLET 150 MG PO (21:09)
[2024-02-23] VITALS (18 sets, daily range): BP systolic 94–117; BP diastolic 60–76; PULSE 66–88; TEMP 36.5–37.7; O2SAT 81–97
[2024-02-23] MEDS: HYDROMORPHONE HCL 0.5 MG/0.5 ML SYRINGE IV ×3 (03:58→20:15)
[2024-02-23 05:31] LABS: Basophils Percent Auto 0.6 % (0.2-2.0); Eosinophils Absolute Auto 0.1 10^3/uL (0.0-0.7); Eosinophils Percent Auto 2.5 % (0.9-7.0); Hemoglobin 8.4 g/dL (12.0-16.0); Immature Granulocytes Abs Auto 0.02 10^3/uL (0.00-0.03); Immature Granulocytes Pct Auto 0.4 % (0.0-0.5); Lymphocytes Absolute Auto 1.4 10^3/uL (1.2-3.8); Lymphocytes Percent Auto 27.8 % (20.5-60.0); Mean Corpuscular HGB Conc 31.1 g/dL (29.9-35.2); Mean Corpuscular Hemoglobin 36.1 pg (26.7-34.0); Mean Corpuscular Volume 115.9 fL (81.0-99.0); Mean Platelet Volume 9.7 fL (9.5-13.5); Monocytes Absolute Auto 0.6 10^3/uL (0.3-0.8); Monocytes Percent Auto 11.7 % (1.7-12.0); Neutrophils Absolute Auto 2.9 10^3/uL (1.4-6.5); Platelet Count 247 10^3/uL (150-450); Red Cell Distribution Width 12.7 % (11.0-15.0); White Blood Count 5.1 10^3/uL (4.0-11.0)
[2024-02-23] MEDS: CHOLECALCIFEROL (VITAMIN D3) 125 MCG/5,000 UNIT TABLET PO ×3 (05:38→21:48)
[2024-02-23] MEDS: OMEPRAZOLE 40 MG CAPSULE.DR PO (05:38)
[2024-02-23] MEDS: MIDODRINE HCL 5 MG TABLET 10 MG PO ×3 (05:39→21:48)
[2024-02-23 05:46] LABS: Alanine Aminotransferase 14 U/L (14-59); Albumin Globulin Ratio 0.5; Albumin Level 1.5 g/dL (3.4-5.0); Alkaline Phosphatase 90 U/L (46-116); Anion Gap 8.1; Aspartate Amino Transferase 15 U/L (15-37); BUN Creatinine Ratio 22.6; Bilirubin Total 0.2 mg/dL (0.2-1.0); Calcium 7.9 mg/dL (8.5-10.1); Carbon Dioxide 28.3 mmol/L (21.0-32.0); Chloride 104 mmol/L (98-107); Estimated GFR (African America >60 (>=60); Estimated GFR (Non-African Ame 60 (>=60); Globulin 2.9 g/dL; Glucose 96 mg/dL (74-106); Potassium 4.4 mmol/L (3.5-5.1); Sodium 136 mmol/L (136-145); Total Protein 4.4 g/dL (6.4-8.2)
[2024-02-23 06:08] LABS: Red Blood Count 2.33 10^6/uL (4.20-5.40)
--- NOTE | 2024-02-23 07:33 | P.PN_ITS ---
Progress Note: Subjective Subjective Interval history: Only complaint this morning is more pain, not just in the hip though she states both legs have pain more pressure type of pain. No shortness of breath no lightheadedness Exam Constitutional Vital Signs, click to edit/add: Last Vital Signs Temp 98.1 F 02/23/24 04:00 Pulse 76 02/23/24 04:00 Resp 18 02/23/24 04:00 BP 103/65 02/23/24 05:39 Pulse Ox 96 02/23/24 06:49 O2 Del Method Nasal Cannula 02/23/24 06:49 O2 Flow Rate 2 02/23/24 06:49 Documenting provider has reviewed patient's vital signs: yes Common normals: no apparent distress and oriented x3 General appearance: cooperative HENMT Common normals: normocephalic and head/scalp atraumatic Head and scalp: normocephalic and atraumatic Eye Common normals: conjunctivae normal and no scleral icterus Conjunctiva: conjunctiva(e) normal Respiratory Common normals: normal respiratory effort and clear to auscultation bilaterally Effort & inspection: able to speak in complete sentences Auscultation: clear to auscultation bilaterally Cardio Common normals: regular rate, S1 normal heart sound and S2 normal heart sound Rate: regular rate Heart sounds: S1 normal and S2 normal GI Common normals: Normal to inspection, nondistended, normoactive bowel sounds present, soft to palpation, non-tender and no hepatosplenomegaly Palpation: soft and no hepatosplenomegaly Extremity Common normals: clubbing, cyanosis or edema General: calf tenderness and edema (Trace edema) Other: RLE - limited ROM due to pain Neuro Common normals: oriented x3, moves all extremities and no focal motor deficits Psych Common normals: mental status grossly normal, denies hallucinations, denies homicidal ideation and denies suicidal ideation Progress Note: Objective Labs Labs: Short CBC 02/23/24 Range/Units 05:02 WBC 5.1 (4.0-11.0) 10^3/uL Hgb 8.4 L (12.0-16.0) g/dL Hct 27.0 L (36.0-48.0) % Plt Count 247 (150-450) 10^3/uL BMP 02/23/24 05:02 Sodium 136 Potassium 4.4 Chloride 104 Carbon Dioxide 28.3 BUN 21.0 H Creatinine 0.93 Glucose 96 Calcium 7.9 L Liver Function 02/23/24 Range/Units 05:02 Total Bilirubin 0.2 (0.2-1.0) mg/dL AST 15 (15-37) U/L ALT 14 (14-59) U/L Alkaline Phosphatase 90 (46-116) U/L Albumin 1.5 L (3.4-5.0) g/dL Progress Note: A&P Assessment and Plan (1) Fracture of right hip: Qualifiers: Encounter type: subsequent encounter Fracture healing: with routine healing Fracture type: closed Qualified Code(s): S72.001D - Fracture of unspecified part of neck of right femur, subsequent encounter for closed fracture with routine healing (2) Pre-operative clearance: (3) CHF (congestive heart failure): Qualifiers: Heart failure chronicity: chronic Heart failure type: combined systolic and diastolic Qualified Code(s): I50.42 - Chronic combined systolic (congestive) and diastolic (congestive) heart failure (4) CAD (coronary artery disease): Qualifiers: Associated angina: without angina Coronary Disease-Associated Artery/Lesion type: [place] artery [place] vs. transplanted heart: [place] heart Qualified Code(s): I25.10 - Atherosclerotic heart disease of [place] coronary artery without angina pectoris (5) GERD (gastroesophageal reflux disease): Qualifiers: Esophagitis presence: without esophagitis Qualified Code(s): K21.9 - Gastro-esophageal reflux disease without esophagitis Plan Findings on admission: Right hip pain secondary to right hip fracture Fracture of right hip: Surgery 02/20. Plan per Dr. Pantoja Pre-operative clearance: Patient has hx of CAD, HFrEF, HTN. Euvolemic, well optimized and appropriate medical treatment. Most recent LHC/ECHO in 11/04 -> patent stent in Lcx, occluded SVG graft to PDA, severely reduced EF but no other sig cardiac structural abnormality. Hip fracture is considered an emergency and optimally should be surgically managed within 48 hours. Given patient's prior cardiac/medical hx, she is at moderate risk of MACE. The risk is not prohibitive especially because the surgery is not elective. CHF (congestive heart failure): Blood pressure still trending low, will increase her fludrocortisone, restart her Farxiga as BNP is slightly elevated, still better than admission overall though CAD (coronary artery disease): s/p CABG and subsequently PCI 2 years ago. Most recent [facility] 11/04 -> Severely reduced EF. No sig valvular pathology. Currently still no symptoms. GERD (gastroesophageal reflux disease): Continue with current medications, no symptoms Acute blood loss anemia secondary to the hip fracture. Down further today. Continue to monitor not to the point of needing transfusion Severe protein calorie malnutrition-diet management and diet supplementation- encourage p.o. intake Hyponatremia-monitor daily, improving Hyperglycemia-monitor daily-patient says she is not a diabetic, will advance diet to regular Admission status: Patient with hip fracture, repair on 02/20, currently working on placement. Patient is an excellent rehabilitation candidate as she is highly motivated for returning to home. Medically necessary treatment will span 2 midnights. Maintain inpatient status Urinary Catheter Management Urinary Catheter Management Urethral: Cath placed during this visit: yes Urethral indwelling: Yes Reason for continuing: acute urinary retention Insertion date: 02/20/24 Insertion time: 15:21
--- NOTE | 2024-02-23 07:33 | US_ITS ---
The [address] [address] Patient Name: ASHVIN RENE MRN: [id number] date: 1955 Sex: F Assigned Patient Location: [place] Current Patient Location: [place] Accession/Order Number: [id number] Exam Date: 02/23/2024 08:28 Report Date: 02/23/2024 10:29 At the request of: BIBI OVIEDO Procedure: US venous doppler LE BI EXAM: US venous doppler LE BI HISTORY: + homans COMPARISON: None. TECHNIQUE: Grayscale, color and Doppler FINDINGS: Right leg: Thrombus: Echogenic thrombus identified in the mid to distal femoral vein Flow: Decreased flow corresponding to thrombus Compressibility: Partial compressibility corresponding to thrombus Augmentation: Normal proximal augmentation Other: Small saphenous vein was not imaged due to recent hip surgery Left leg: Thrombus: None Flow: Normal Compressibility: Normal Augmentation: Normal US/US venous doppler LE BI IMPRESSION: Nonocclusive deep vein thrombus in the right mid to distal femoral vein No left leg deep or superficial vein thrombus Electronically authenticated by: YARY EMANUEL Date: 02/23/2024 10:29
[2024-02-23] MEDS: OXYCODONE HCL 5 MG TABLET PO ×2 (07:59→15:53)
--- NOTE | 2024-02-23 08:02 | CM.NOTE ---
Rounds made with Dr. Bahena, continue pain control. Pt will continue working with PT and OT for strengthening. Pt will need skilled therapy at discharge and her preference is [facility] [place]. Referral sent to [facility], called and left message and will await call back.
--- NOTE | 2024-02-23 08:26 | CM.NOTE ---
Important Message From Medicare discussed with pt, pt verbalizes understanding and signs paper. Original given to pt and copy placed on pt's chart.
[2024-02-23] MEDS: LIOTHYRONINE SODIUM 5 MCG TABLET 10 MCG PO (08:58)
[2024-02-23] MEDS: TORSEMIDE 20 MG TABLET 10 MG PO (08:58)
[2024-02-23] MEDS: SPIRONOLACTONE 25 MG TABLET 12.5 MG PO (08:58)
[2024-02-23] MEDS: FLUDROCORTISONE ACETATE 0.1 MG TABLET PO (08:59)
[2024-02-23] MEDS: METOPROLOL TARTRATE 25 MG TABLET PO ×2 (08:59→20:14)
[2024-02-23] MEDS: CANAGLIFLOZIN 100 MG TABLET 300 MG PO (08:59)
[2024-02-23] MEDS: RANOLAZINE 500 MG TAB.ER.12H PO ×2 (08:59→20:14)
[2024-02-23] MEDS: DULOXETINE HCL 30 MG CAPSULE.DR PO (08:59)
--- NOTE | 2024-02-23 09:20 | SWNOTE1 ---
SW spoke to case management and pt wants to go to rehab and chose the [facility]. Referral already sent by case management. Pt is a precert. Ronny from [facility] emailed and they are reviewing benefits and will let SW know.
--- NOTE | 2024-02-23 10:17 | SWNOTE1 ---
SW received an email from Clarita at [facility] and they can accept pt once they have PT/OT notes from today.
--- NOTE | 2024-02-23 10:25 | REH.PTDLY ---
Physical Therapy Daily Note PT Daily Note/Assess Start: 02/23/24 10:21 Freq: Status: Active Protocol: Document 02/23/24 10:21 ARMOND (Rec: 02/23/24 10:24 ARMOND [id number]) Physical Therapy Daily Note/Assessment Time In 09:35 Time Out 09:55 Subjective High pain levels of 9/10 per pt report with very little movements, hurts just to cough per pt. Pt states she had pain medicine this morning, but doesn't seem to help much. Therapeutic Exercise Minutes (minutes) 4 Therapeutic Exercise Units 0 Therapeutic Exercise Treatment Pt performs LAQ and marching on L LE 10x ea. Braldey AP 10x ea . Attempted AAROM on R with LAQ, too painful per pt within a small range. Therapeutic Activity Minutes (minutes) 7 Therapeutic Activity Units 1 Therapeutic Activity Comments Pt requires Max A x2 with bed mobility and sit to stand transfer. Once standing pt performs TTWB on R with RW and assist of 2. Cues for pt to flatten foot to floor to let rest. Stand pivot transfer to chair with 2 assist to help maneuver RW and maintain balance. Pt able to inch L foot by scooting it across floor. Cues for pt to reach back to chair upon sitting to slowly lower Min A. Total Therapy Minutes 11 Total Physical Therapy Units 1 Daily Note Summary Pt requires Max A x2 during rx with bed mobility and transfers due to pain and weakness. Pt will need to go to SNF at [place] to become stronger and have functional mobility prior to returning home.
--- NOTE | 2024-02-23 10:28 | SWNOTE1 ---
SW sent over OT note from this morning and PT delano from yesterday to [facility] at [facility] for precert. DNR paperwork sent as well.
--- NOTE | 2024-02-23 10:43 | SWNOTE1 ---
BRIANNA sent over PT note from today to [facility] at [facility].
--- NOTE | 2024-02-23 11:52 | SWNOTE1 ---
BRIANNA received an email from [facility] and pt's insurance has approved her to go already. BRIANNA sent message to Doctor.
--- NOTE | 2024-02-23 12:45 | SWNOTE1 ---
Pt is staying until tomorrow.
[2024-02-23] MEDS: BENZONATATE 100 MG CAPSULE 200 MG PO (20:13)
[2024-02-23] MEDS: ATORVASTATIN CALCIUM 40 MG TABLET PO (20:14)
[2024-02-23] MEDS: APIXABAN 5 MG TABLET PO (20:14)
[2024-02-23] MEDS: ACETAMINOPHEN 500 MG TABLET 1000 MG PO (20:14)
[2024-02-23] MEDS: TRAZODONE HCL 50 MG TABLET 150 MG PO (21:48)
[2024-02-23] MEDS: PREGABALIN 50 MG CAPSULE PO (21:48)
[2024-02-23] MEDS: FAMOTIDINE 20 MG TABLET 40 MG PO (21:51)
[2024-02-23] MEDS: MONTELUKAST SODIUM 10 MG TABLET PO (22:12)
[2024-02-24 04:00] VITALS: O2SAT 99
[2024-02-24 04:03] VITALS: BP 91/60; PULSE 72; TEMP 36.8; O2SAT 96
[2024-02-24] MEDS: OMEPRAZOLE 40 MG CAPSULE.DR PO (05:21)
[2024-02-24] MEDS: CHOLECALCIFEROL (VITAMIN D3) 125 MCG/5,000 UNIT TABLET PO (05:21)
[2024-02-24] MEDS: MIDODRINE HCL 5 MG TABLET 10 MG PO (05:21)
[2024-02-24 05:49] LABS: Basophils Percent Auto 0.8 % (0.2-2.0); Eosinophils Absolute Auto 0.2 10^3/uL (0.0-0.7); Eosinophils Percent Auto 3.7 % (0.9-7.0); Hematocrit 29.7 % (36.0-48.0); Hemoglobin 9.1 g/dL (12.0-16.0); Immature Granulocytes Abs Auto 0.02 10^3/uL (0.00-0.03); Immature Granulocytes Pct Auto 0.4 % (0.0-0.5); Lymphocytes Absolute Auto 1.4 10^3/uL (1.2-3.8); Lymphocytes Percent Auto 26.1 % (20.5-60.0); Mean Corpuscular HGB Conc 30.6 g/dL (29.9-35.2); Mean Corpuscular Hemoglobin 35.1 pg (26.7-34.0); Mean Corpuscular Volume 114.7 fL (81.0-99.0); Mean Platelet Volume 9.6 fL (9.5-13.5); Monocytes Absolute Auto 0.6 10^3/uL (0.3-0.8); Monocytes Percent Auto 10.8 % (1.7-12.0); Neutrophils Percent Auto 58.2 % (43.0-75.0); Platelet Count 313 10^3/uL (150-450); Red Cell Distribution Width 12.1 % (11.0-15.0); White Blood Count 5.2 10^3/uL (4.0-11.0)
[2024-02-24 05:57] VITALS: O2SAT 97
[2024-02-24 06:19] LABS: Alanine Aminotransferase 18 U/L (14-59); Albumin Globulin Ratio 0.5; Albumin Level 1.6 g/dL (3.4-5.0); Alkaline Phosphatase 105 U/L (46-116); Anion Gap 11.5; Aspartate Amino Transferase 23 U/L (15-37); BUN Creatinine Ratio 20.4; Bilirubin Total 0.3 mg/dL (0.2-1.0); Calcium 8.1 mg/dL (8.5-10.1); Carbon Dioxide 27.5 mmol/L (21.0-32.0); Chloride 104 mmol/L (98-107); Estimated GFR (African America >60 (>=60); Estimated GFR (Non-African Ame 60 (>=60); Globulin 3.1 g/dL; Glucose 99 mg/dL (74-106); Sodium 139 mmol/L (136-145); Total Protein 4.7 g/dL (6.4-8.2)
[2024-02-24 06:32] LABS: Red Blood Count 2.59 10^6/uL (4.20-5.40)
[2024-02-24] MEDS: OXYCODONE HCL 5 MG TABLET PO (06:55)
--- NOTE | 2024-02-24 08:02 | CM.NOTE ---
Rounds made with Dr. Bahena, pt will discharge today to [facility] for skilled therapy.
[2024-02-24] MEDS: CANAGLIFLOZIN 100 MG TABLET 300 MG PO (08:15)
[2024-02-24] MEDS: SPIRONOLACTONE 25 MG TABLET 12.5 MG PO (08:15)
[2024-02-24] MEDS: FLUDROCORTISONE ACETATE 0.1 MG TABLET PO (08:15)
[2024-02-24] MEDS: DULOXETINE HCL 30 MG CAPSULE.DR PO (08:15)
[2024-02-24] MEDS: RANOLAZINE 500 MG TAB.ER.12H PO (08:15)
[2024-02-24] MEDS: LIOTHYRONINE SODIUM 5 MCG TABLET 10 MCG PO (08:15)
[2024-02-24] MEDS: APIXABAN 5 MG TABLET PO (08:15)
--- NOTE | 2024-02-24 08:16 | P.DS_ITS ---
DS: Providers Provider Date of admission: 02/20/24 15:37 Primary care physician: KENISHA SOLANO DO Consults: 02/20/24 15:21 Occupational Therapy Eval and Treat Routine Reason for consultation: Ambulatory dysfunction/weakness Physical Therapy Eval and Treat Routine Reason for consultation: Ambulatory dysfunction/weakness 02/20/24 15:39 Consult to Cardiology Routine Reason for consultation: pre oper clearance 02/22/24 08:00 Physical Therapy Eval and Treat Routine Reason for consultation: right hip fracture IM nail - WBAT DS: Diagnosis Discharge Diagnosis (1) Fracture of right hip: Qualifiers: Encounter type: subsequent encounter Fracture healing: with routine healing Fracture type: closed Qualified Code(s): S72.001D - Fracture of unspecified part of neck of right femur, subsequent encounter for closed fracture with routine healing (2) Pre-operative clearance: (3) CHF (congestive heart failure): Qualifiers: Heart failure chronicity: chronic Heart failure type: combined systolic and diastolic Qualified Code(s): I50.42 - Chronic combined systolic (congestive) and diastolic (congestive) heart failure (4) CAD (coronary artery disease): Qualifiers: Associated angina: without angina Coronary Disease-Associated Artery/Lesion type: [place] artery [place] vs. transplanted heart: [place] heart Qualified Code(s): I25.10 - Atherosclerotic heart disease of [place] coronary artery without angina pectoris (5) GERD (gastroesophageal reflux disease): Qualifiers: Esophagitis presence: without esophagitis Qualified Code(s): K21.9 - G [place]-esophageal reflux disease without esophagitis Plan Findings on admission: Right hip pain secondary to right hip fracture Fracture of right hip: Surgery 02/20. Plan per Dr. Pantoja Pre-operative clearance: Patient has hx of CAD, HFrEF, HTN. Euvolemic, well optimized and appropriate medical treatment. Most recent LHC/ECHO in 11/04 -> patent stent in Lcx, occluded SVG graft to PDA, severely reduced EF but no other sig cardiac structural abnormality. Hip fracture is considered an emergency and optimally should be surgically managed within 48 hours. Given patient's prior cardiac/medical hx, she is at moderate risk of MACE. The risk is not prohibitive especially because the surgery is not elective. CHF (congestive heart failure): Blood pressure still trending low, will increase her fludrocortisone, restart her Farxiga as BNP is slightly elevated, still better than admission overall though Right lower extremity DVT-started on Eliquis yesterday CAD (coronary artery disease): s/p CABG and subsequently PCI 2 years ago. Most recent [facility] 11/04 -> Severely reduced EF. No sig valvular pathology. Currently still no symptoms. GERD (gastroesophageal reflux disease): Continue with current medications, no symptoms Acute blood loss anemia secondary to the hip fracture. Down further today. Continue to monitor not to the point of needing transfusion Severe protein calorie malnutrition-diet management and diet supplementation- encourage p.o. intake Hyponatremia-monitor daily, improving Hyperglycemia-monitor daily-patient says she is not a diabetic, will advance diet to regular Admission status: Patient with hip fracture, repair on 02/20, currently working on placement. Patient is an excellent rehabilitation candidate as she is highly motivated for returning to home. Medically necessary treatment will span 2 midnights. Maintain inpatient status DS: Summary Hospital Course Hospital Course: Patient was a history significant hypotension, orthostatic, presented after fall and found to have hip fracture. Surgical repair 3 days prior to discharge. She had no issues with dialysis than yesterday developed more leg aching, ultrasound showed DVT. With her hemoglobin down she was kept 1 additional day. Her hemoglobin is better today. So far tolerating the Eliquis. Did recommend lower dosing secondary to risk of bleeding and a nonocclusive thrombus. Physician following at rehab can adjust. Her hemoglobin again is improved today. Her BNP was elevated on admission but that is improved today. She does have severe protein calorie malnutrition and recommend diet supplements. Medications see list. Follow-up PCP after discharge from rehab Time Spent with Patient Time attestation: Total time spent providing and/or coordinating discharge services: Exam Constitutional Vital Signs, click to edit/add: Last Vital Signs Temp 98.3 F 02/24/24 04:03 Pulse 72 02/24/24 04:03 Resp 18 02/23/24 23:40 BP 91/60 02/24/24 04:03 Pulse Ox 97 02/24/24 05:57 O2 Del Method Nasal Cannula 02/24/24 04:03 O2 Flow Rate 2 02/24/24 04:03 Documenting provider has reviewed patient's vital signs: yes Common normals: no apparent distress and oriented x3 General appearance: cooperative HENMT Common normals: normocephalic and head/scalp atraumatic Head and scalp: normocephalic and atraumatic Eye Common normals: conjunctivae normal and no scleral icterus Conjunctiva: conjunctiva(e) normal Respiratory Common normals: normal respiratory effort and clear to auscultation bilaterally Effort & inspection: able to speak in complete sentences Auscultation: clear to auscultation bilaterally Cardio Common normals: regular rate, S1 normal heart sound and S2 normal heart sound Rate: regular rate Heart sounds: S1 normal and S2 normal GI Common normals: Normal to inspection, nondistended, normoactive bowel sounds present, soft to palpation, non-tender and no hepatosplenomegaly Palpation: soft and no hepatosplenomegaly Extremity Common normals: clubbing, cyanosis or edema General: calf tenderness and edema (Trace edema) Other: RLE - limited ROM due to pain Neuro Common normals: oriented x3, moves all extremities and no focal motor deficits Psych Common normals: mental status grossly normal, denies hallucinations, denies homicidal ideation and denies suicidal ideation DS: Data Data Completed and Pending Labs on day of discharge: Labs from last 24 hours 02/24/24 05:25 WBC 5.2 RBC 2.59 L Hgb 9.1 L Hct 29.7 L MCV 114.7 H MCH 35.1 H MCHC 30.6 RDW 12.1 Plt Count 313 MPV 9.6 Neut % (Auto) 58.2 Lymph % (Auto) 26.1 [place] % (Auto) 10.8 Eos % (Auto) 3.7 Baso % (Auto) 0.8 Neut # (Auto) 3.0 Lymph # (Auto) 1.4 [place] # (Auto) 0.6 Eos # (Auto) 0.2 Baso # (Auto) 0.0 Abs Immat Gran (auto) 0.02 Imm/Tot Granulo (auto) 0.4 Sodium 139 Potassium 4.0 Chloride 104 Carbon Dioxide 27.5 Anion Gap 11.5 BUN 19.0 H Creatinine 0.93 Est GFR ( Amer) >60 Est GFR (Non-Af Amer) 60 BUN/Creatinine Ratio 20.4 Glucose 99 Calcium 8.1 L Total Bilirubin 0.3 AST 23 ALT 18 Alkaline Phosphatase 105 NT-Pro-B Natriuret Pep 2620.0 H* Total Protein 4.7 L Albumin 1.6 L Globulin 3.1 Albumin/Globulin Ratio 0.5 Discharge Plan Discharge Disposition: Xfer SNF Condition: Fair Discharge Medications: New oxycodone 5 mg Tablet 5 mg PO Q4H PRN (Reason: pain (scale score 7-10)) Qty: 180 0RF Ensure Active Protein-Muscle Liquid 1 ea PO BID Qty: 5688 11RF Continued clopidogrel 75 mg tablet 75 mg PO DAILY duloxetine 30 mg capsule,delayed release(DR/EC) 30 mg PO DAILY famotidine 40 mg tablet 40 mg PO BEDTIME fludrocortisone 0.1 mg tablet 0.1 mg PO DAILY Rx Instructions: hold if standing bp is higher than 120 liothyronine 5 mcg tablet 10 mcg PO DAILY montelukast 10 mg tablet 10 mg PO DAILY midodrine 10 mg tablet 10 mg PO TID pantoprazole 40 mg tablet,delayed release (DR/EC) 40 mg PO .dinner Rx Instructions: 40 mg orally; trazodone 150 mg tablet 150 mg PO BEDTIME Patient Comments: 75-150 mg at qhs sucralfate 1 gram tablet 1 g PO BID PRN (Reason: vomiting/diarrhea) rosuvastatin 20 mg tablet 20 mg PO DAILY ranolazine 1,000 mg tablet extended release 12 hr 1,000 mg PO Q12H fexofenadine [Katharina Allergy] 180 mg tablet 180 mg PO DAILY ferrous sulfate [Feosol] 325 mg (65 mg iron) tablet 325 mg PO DAILY loperamide [Anti-Diarrheal (loperamide)] 2 mg capsule 2 mg PO QID PRN (Reason: loose stool) pregabalin [Lyrica] 50 mg capsule 50 mg PO BEDTIME nitroglycerin 0.4 mg tablet, sublingual 0.4 mg sublingual Q5M Rx Instructions: do not exceed 3 doses per episode multivitamin [Daily Multi-Vitamin] Tablet 1 tab PO DAILY calcium citrate 250 mg calcium tablet 250 mg PO DAILY dapagliflozin propanediol [Farxiga] 10 mg tablet 10 mg PO QAM ipratropium bromide 21 mcg (0.03 %) spray,non-aerosol 2 spray INTRANASAL DAILY PRN (Reason: allergy symptoms) cholecalciferol (vitamin D3) 125 mcg (5,000 unit) capsule 5,000 unit PO TID spironolactone 25 mg tablet 12.5 mg PO DAILY Hold Instructions: Doctor's Order midodrine 10 mg tablet 10 mg PO TID PRN (Reason: hypotension) Rx Instructions: in addition to the scheduled doses Discontinued torsemide 20 mg tablet 10 mg PO DAILY Hold Instructions: Doctor's Order Print Language: Malay 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 Forms: Portal Instructions Follow Up Appointments: Dr Pantoja, FridayMarch 08, at 8:40am [phone], [facility], [address] [place] [address], [address]
[2024-02-24 08:18] VITALS: BP 106/62; PULSE 83; TEMP 36.8; O2SAT 93
[2024-02-24 08:38] LABS: Occult Blood Negative
[2024-02-24 08:39] LABS: Internal Control Within Normal Limits
[2024-02-24 09:03] VITALS: O2SAT 98
--- NOTE | 2024-02-24 09:32 | SWNOTE1 ---
Pt will be discharged today. SW to work on transport.
--- NOTE | 2024-02-24 09:45 | SWNOTE1 ---
BRIANNA called and set up trips for 11:00-11:30. BRIANNA notified patient, nursing, and [place] of time. BRIANNA sent over dc med rec as well along with dc summary. BRIANNA completed HENS yesterday.
--- NOTE | 2024-02-24 09:47 | SWNOTE1 ---
SW also called and left pt's son, Shayne, a message with dc time.
[2024-02-24] MEDS: ACETAMINOPHEN 500 MG TABLET 1000 MG PO (09:52)
--- NOTE | 2024-02-24 10:14 | REH.PTDLY ---
Physical Therapy Daily Note PT Daily Note/Assess Start: 02/23/24 10:21 Freq: Status: Active Protocol: Document 02/24/24 10:06 ARMOND (Rec: 02/24/24 10:13 ARMOND [id number]) Physical Therapy Daily Note/Assessment Time In 09:45 Time Out 10:03 Pain Level 8 Pain Level 8 Subjective Pt agreeable to therapy, being DC to [facility] for SNF today sometime. Pt reports headache this morning and asking for Tylenol. Notified MICAH Velazquez and she also states pt is able to get dressed at this time Therapeutic Exercise Minutes (minutes) 5 Therapeutic Exercise Units 0 Therapeutic Exercise Treatment Instructed in L LE AP, QS, heel slides, SLR, and hip abd slides 10x ea. Pt has too much pain on R LE and tolerates very little motion. Therapeutic Activity Minutes (minutes) 12 Therapeutic Activity Units 1 Therapeutic Activity Comments Mod A x 1 with supine to sit transfers with cues for pt to use bed rail to assist and pull herself up. Cues to scoot forward to EOB, pt able to on L side, but struggles with R side needing assistance. Once upright pt able to don shirt, needs assistance with brief and pants. Pt stood Mod A x2 with RW, needed assistance pulling pants up. Cues for pt to side step to HOB, pt unable to take full step, scoots L foot on floor and performs toe touch with R leg. Mod A x 1 with B LE with sit to supine transfers and increased pain. Total Therapy Minutes 17 Total Physical Therapy Units 1 Daily Note Summary Pt requires less assistance today from Max to Mod of 1 with bed mobility and scooting to EOB. Pt still limited in the amount of weight she is putting on R leg when standing . Pt to be DC to [facility] today for skilled rehab.
[2024-02-24 10:45] VITALS: BMI 27.9
== END 2024-02-24 11:00 | DRG 480 ==
LOC: ER 14:58 → MS 15:39
PROVIDERS: Internal Medicine; Orthopaedic Surgery; Admitting Provider Family Medicine; Emergency Provider Emergency Medicine; PCP Internal Medicine; Visit Provider Family Medicine
PROC: 0QS636Z Reposition Right Upper Femur with Intramedullary Internal Fixation Device, Percutaneous Approach (ICD-10-PCS; principal; 2024-02-21 09:00)
DX: S72.001A Fracture of unspecified part of neck of right femur, initial encounter for closed fracture (principal); E43 Unspecified severe protein-calorie malnutrition; D62 Acute posthemorrhagic anemia; E87.1 Hypo-osmolality and hyponatremia; I50.42 Chronic combined systolic (congestive) and diastolic (congestive) heart failure; I82.411 Acute embolism and thrombosis of right femoral vein; I25.10 Atherosclerotic heart disease of native coronary artery without angina pectoris; Z95.1 Presence of aortocoronary bypass graft; K21.9 Gastro-esophageal reflux disease without esophagitis; R73.9 Hyperglycemia, unspecified; E03.9 Hypothyroidism, unspecified; Z87.891 Personal history of nicotine dependence; W01.0XXA Fall on same level from slipping, tripping and stumbling without subsequent striking against object, initial encounter; Z96.651 Presence of right artificial knee joint; Z86.73 Personal history of transient ischemic attack (TIA), and cerebral infarction without residual deficits; I25.2 Old myocardial infarction; Z12.31 Encounter for screening mammogram for malignant neoplasm of breast; Z79.899 Other long term (current) drug therapy; Z79.890 Hormone replacement therapy; Z68.27 Body mass index [BMI] 27.0-27.9, adult
CPT/HCPCS: 36415; 51702; 71045; 73502; 73700; 76000; 77063; 77067; 80048; 80053; 83880; 85025; 85610; 85730; 93005; 93970; 94667; 94668; 94761; 96365; 96366; 96372; 96375; 96376; 97161; 97162; 97165; 97530; 97535; 99285; C1713; C1776; G0328; J0665; J0690; J1100; J1170; J1650; J2270; J2371; J2405; J2710; J3010

== ENCOUNTER 2024-03-08 08:30 | Outpatient (OUT) | payer MEDICARE, SELFPAY ==
--- NOTE | 2024-03-08 | XR_ITS ---
The [address] [address] Patient Name: ASHVIN RENE MRN: [id number] date: 1955 Sex: F Assigned Patient Location: Current Patient Location: Accession/Order Number: [id number] Exam Date: 03/08/2024 08:35 Report Date: 03/09/2024 05:58 At the request of: LAURIE ARTEAGA Procedure: XR hip RT 2V w/ pelvis PROCEDURE: XR hip RT 2V w/ pelvis HISTORY: RIGHT HIP AND PELVIS PAIN COMPARISON: XR hip right 02/20/2024 FINDINGS: BONES:Interval repair of right hip fracture via medullary ismael and compression screw. Unremarkable right hip joint. Prior left femoral neck repair and remote fracture and healing of superior and inferior left pubic rami. SOFT TISSUES:No visible soft tissue swelling. EFFUSION:None visible. OTHER: Atherosclerotic disease. XR/XR hip RT 2V w/ pelvis IMPRESSION: 1. Surgical repair of recent right hip fracture. No suspicious findings. Electronically authenticated by: LAURIE MEJÍA Date: 03/09/2024 05:58
== END 2024-03-08 08:31 | disposition home or self-care (01) ==
LOC: EC 08:30
PROVIDERS: PCP Internal Medicine; Visit Provider Orthopaedic Surgery
DX: S72.001D Fracture of unspecified part of neck of right femur, subsequent encounter for closed fracture with routine healing (principal)
CPT/HCPCS: 73502

== ENCOUNTER 2024-03-14 16:43 | Emergency (ER) | payer MEDICARE, SELFPAY ==
[2024-03-14 16:52] VITALS: BP 142/83; PULSE 93; TEMP 36.6; O2SAT 100; BMI 23.4
== END 2024-03-14 17:04 | disposition left against medical advice (07) ==
LOC: ER 16:50
PROVIDERS: Emergency Provider Emergency Medicine Emergency Medical Services; PCP Internal Medicine
DX: Z53.21 Procedure and treatment not carried out due to patient leaving prior to being seen by health care provider (principal)
CPT/HCPCS: 99283

== ENCOUNTER 2024-04-02 10:46 | Outpatient (OUT) | payer MEDICARE, SELFPAY ==
--- OUTSIDE RECORDS SUMMARY | 2024-04-02 11:08 | XMS_ITS | CCD ---
Author Organization [facility] Care Team Providers Care Pharmacy Resource Tech Name Role Phone Tushar Solano Primary Care Provider UnavailHarriet Gipson Attending Provider Tushar Rodriguez Jr. Primary Care Provider Waqas Mabry Unavailable Antonio Kim Unavailable [phone] Virginia Marti Unavailable JR Tushar Solano Primary Care Provider [phone] ZAC Marti Attending Provider [phone] RUSS, DR DE Primary Care Unavailable VALONE, DR DE Consulting Unavailable VALONE, DR DE Attending Unavailable VALONE, DR DE Admitting Unavailable VALONE, DR DE Primary Care Unavailable VALONE, DR DE Consulting Unavailable VALONE, DR DE Attending Unavailable VALONE, DR DE Admitting Unavailable VALONE, DR DE Primary Care Unavailable VALONE, DR DE Consulting Unavailable VALONE, DR DE Attending Unavailable VALONE, DR DE Admitting Unavailable [place]ER, DR YARY Burleson Consulting Unavailable Russ Christopher [...] DO, Charles L Primary Care Provider JONATHAN PIAZRRO Admitting Unavailable JONATHAN PIZARRO Attending Unavailable SMITHA [...] atorvastatin; Translations: [atorvastatin] Drug Allergy 06-18-20 16 [facility], [facility] (12 sources) Cefadroxil; Translations: [cefadroxil] Drug Allergy 06-18-20 16 [facility] (14 sources) Codeine; Translations: [Codeine] Drug Allergy 10-12-19 15 Hives, Hallucinations , [facility] (3 sources) Dipyridamole; Translations: [dipyridamole] Drug Allergy 05-30-20 21 Unknown Reaction [facility] (6 sources) Fenofibrate; Translations: [fenofibrate] Drug Allergy 06-18-20 16 [facility] (12 sources) fluvoxaMINE; Translations: [fluvoxamine] Drug Allergy 06-18-20 16 [facility] (12 sources) nefazodone; Translations: [nefazodone] Drug Allergy 06-18-20 16 [facility] (12 sources) Niacin; Translations: [niacin] Drug Allergy 06-18-20 16 [facility] (6 sources) Simvastatin; Translations: [simvastatin] Drug Allergy 05-30-20 21 [facility] (1 source) Aspirin / Dipyridamole Drug Allergy 07-14-19 13 [facility] (1 source) Cefadroxil Drug Allergy 10-12-19 15 [facility] (1 source) Dextroamphetamine Drug Allergy 10-12-19 15 [facility] (1 source) Fenofibrate Drug Allergy 10-12-19 15 [facility] (1 source) fluvoxaMINE Drug Allergy 10-12-19 15 [facility] (1 source) nefazodone Drug Allergy 10-12-19 15 [facility] (1 source) Niacin Drug Allergy 10-12-19 15 [facility] (1 source) Simvastatin Drug Allergy 10-12-19 15 [facility] (3 sources) Aspirin / Dipyridamole Drug Allergy 04-08-20 23 Other [facility] Work Phone: (3 sources) Fluconazole Allergy to substance 04-08-20 23 Rash [facility] (3 sources) Aspirin / Dipyridamole; Translations: [ASPIRIN-DIPYRIDAMOL E] Drug Allergy 06-18-20 16 [facility] Work Phone: (6 sources) Fenofibrate; Translations: [FENOFIBRATE MICRONIZED] Drug Allergy 06-18-20 16 [facility] (4 sources) Metoprolol; Translations: [METOPROLOL] Drug Allergy 09-09-19 24 Other (See Comments) [facility] Medications Current Medications Medication Drug Class(es) Dates [...] Start: 11-25-2022 take [address] [facility] once daily calcium citrate 250 mg [...] mg/ml ophthalmic solution (3 sources) Plasma Volume Apple Turner, Non-Standardized Chemical Allergen Artificial Tear Solution (Soothe [...] by mouth every week Ergocalciferol 1.25 MG (05849 UT) capsule Take 1 capsule by mouth [...] take 1 tablet by mouth at mealti vt ferrous sulfate 325 (65 Fe) MG EC [...] Anti-coagulant Start: 10-13-2023 End: 10-14-2023 heparin infusion 13315 units/500 mL in 0.45% NaCl (50 units/mL [...] graft with unstable angina pectoris, unspecified whether chilkat or transplanted heart ([facility]) Take 1 tablet (1,000 mg total) by [...] Coronary arteriosclerosis; Translations: [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] Onset: 10-19-2020 03-05-2023 Chronic Coronary atherosclerosis and other heart disease (1 source) Coronary atherosclerosis and other heart disease; Translations: [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 [...] encounter Episodic Other aftercare (1 source) Other intermission coordinator (current) drug therapy; Translations: [OTH [facility] CURRENT DRUG THERAPY] Onset: 07-21-2022 Episodic Other [...] [Moles/Vol] 15 mmol/L Normal 5-15 [facility] Comment on above: Performed By: #### P INR, 05289-0, 718-7, PLTCT, BMP, 84621-4 #### [facility] ([id number]) [address], [address] [place] [address] Calcium [Mass/Vol] 8.0 mg/dL Low 8.5-10.5 [facility] Comment on above: Performed By: #### P INR, 33072-0, 718-7, PLTCT, BMP, 24846-4 #### [facility] ([id number]) [address], [address] [place] [address] Chloride [Moles/Vol] 97 mmol/L Low 98-109 [facility] Comment on above: Performed By: #### P INR, 80950-7, 718-7, PLTCT, BMP, 55224-5 #### [facility] ([id number]) [address], [address] [place] [address] CO2 [Moles/Vol] 28 mmol/L Normal 22-32 [facility] Comment on above: Performed By: #### P INR, 49719-5, 718-7, PLTCT, BMP, 59291-0 #### [facility] ([id number]) [address], [address] [address] Creatinine [Mass/Vol] 0.88 mg/dL Normal 0.40-1.00 [facility] Comment on above: Result Comment: METH OD TRACEABLE TO IDMS STANDARD Performed By: #### P INR, 97633-8, 718-7, PLTCT, BMP, 05899-4 #### [facility] ([id number]) [address], [address] [address] GFR/1.73 sq M.predicted among non-blacks MDRD (S/P/Bld) [Vol rate/Area] 71 mL/min/{1.73_m2} Normal >59 [facility] Comment on above: Result Comment: Reported eGFR is based on the CKD-EPI 2020 equation that does not use a race coefficient. Performed By: #### P INR, 25251-2, 718-7, PLTCT, BMP, 60573-8 #### [facility] ([id number]) [address], [address] [address] Glucose [Mass/Vol] 138 mg/dL High 65-99 [facility] Comment on above: Performed By: #### P INR, 60730-4, 718-7, PLTCT, BMP, 01119-5 #### [facility] ([id number]) [address] [address] Potassium [Moles/Vol] 4.8 mmol/L Normal 3.5-5.0 [facility] Comment on above: Result Comment: SPEC IMEN HEMOLYZED, RESULTS INCREASED MODERATELY HEMOLYZED Performed By: #### P INR, 05626-3, 718-7, PLTCT, BMP, 89064-9 #### [facility] ([id number]) [address], [address] [place] [address] Sodium [Moles/Vol] 140 mmol/L Normal 134-146 [facility] Comment on above: Performed By: #### P INR, 78403-5, 718-7, PLTCT, BMP, 58670-2 #### [facility] ([id number]) [address], [address] [place] [address] Urea nitrogen [Mass/Vol] 20 mg/dL Normal 5-27 [facility] Comment on above: Performed By: #### P INR, 24128-2, 718-7, PLTCT, BMP, 04221-1 #### [facility] ([id number]) [address], [address] [place] [address] Basic Metabolic Panelon - Anion gap [Moles/Vol] 15 mmol/L 5 - 15 mmol/L [facility] Calcium [Mass/Vol] 8.0 mg/dL Low 8.5 - 10. 5 mg/dL [facility] Chloride [Moles/Vol] 97 mmol/L Low 98 - 109 mmol/L [facility] CO2 [Moles/Vol] 28 mmol/L 22 - 32 mmol/L [facility] Creatinine [Mass/Vol] 0.88 mg/dL 0.40 - 1.00 mg/dL [facility] Comment on above: METHOD TRACEABLE TO IDIN STANDARD eGFR (CKD-EPI)non-race dependent 71 - PINF [facility] Comment on above: Reported eGFR is based on the CKD-EPI 2020 equation that does not use a race coefficient. Glucose [Mass/Vol] 138 mg/dL High 65 - 99 mg/dL [facility] Potassium [Moles/Vol] 4.8 mmol/L 3.5 - 5.0 mmol/L [facility] Comment on above: SPECIMEN HEMOLYZED, RESULTS INCREASED MODERATELY HEMOLYZED Sodium [Moles/Vol] 140 mmol/L 134 - 146 mmol/L [facility] Urea nitrogen [Mass/Vol] 20 mg/dL 5 - 27 mg/dL [facility] CBC AND AUTO DIFFon 10-15-19 ABSOLUTE BASOPHIL 0.0 X10E9/L Normal 0.0-0.2 [facility] Comment on above: Performed By: #### P INR, 81384-7, 718-7, PLTCT, BMP, 80886-4 #### [facility] ([id number]) [address], [address] [place] [address] ABSOLUTE NEUTROPHIL 4.6 X10E9/L Normal 1.5-6.6 [facility] Comment on above: Performed By: #### P INR, 98319-6, 718-7, PLTCT, BMP, 53364-9 #### [facility] ([id number]) [address], [address] [address] Basophils/100 WBC (Bld) 0.4 % Normal [facility] Comment on above: Performed By: #### P INR, 49740-3, 718-7, PLTCT, BMP, 04299-9 #### [facility] ([id number]) [address], [address] [place] [address] Eosinophils (Bld) [#/Vol] 0.0 10*3/uL Normal 0.0-0.4 [facility] Comment on above: Performed By: #### P INR, 95764-9, 718-7, PLTCT, BMP, 24112-7 #### [facility] ([id number]) [address], [address] [place] [address] Eosinophils/100 WBC (Bld) 0.3 % Normal [facility] Comment on above: Performed By: #### P INR, 11227-9, 718-7, PLTCT, BMP, 30882-9 #### [facility] ([id number]) [address], [address] [address] Erythrocyte distribution width (RBC) [Ratio] 12.7 % Normal 11.5-15.0 [facility] Comment on above: Performed By: #### P INR, 48190-6, 718-7, PLTCT, BMP, 05411-3 #### [facility] ([id number]) [address], [address] [place] [address] Hematocrit (Bld) [Volume fraction] 38.1 % Normal 35-47 [facility] Comment on above: Performed By: #### P INR, 28342-8, 718-7, PLTCT, BMP, 93157-1 #### [facility] ([id number]) [address], [facility] [address] [place] [address] Lymphocytes (Bld) [#/Vol] 2.2 10*3/uL Normal 1.0-3.5 [facility] Comment on above: Performed By: #### P INR, 72116-6, 718-7, PLTCT, BMP, 57762-5 #### [facility] ([id number]) [address] [address] [place] [address] Lymphocytes/100 WBC (Bld) 30.4 % Normal [facility] Comment on above: Performed By: #### P INR, 25981-9, 8-7, PLTCT, BMP, 85788-9 #### [facility] ([id number]) [address] [address] [place] [address] MCH (RBC) [Entitic mass] 34.3 pg High 27-34 [facility] Comment on above: Performed By: #### P INR, 77145-8, 718-7, PLTCT, BMP, 76908-7 #### [facility] ([id number]) [address] [address] [place] [address] MCHC (RBC) [Mass/Vol] 33.3 g/dL Normal 32-36 [facility] Comment on above: Performed By: #### P INR, 53467-4, 718-7, PLTCT, BMP, 61752-0 #### [facility] ([id number]) [address], [facility] [address] [place] [address] MCV (RBC) [Entitic vol] 103 fL High 80-100 [facility] Comment on above: Performed By: #### P INR, 30103-0, 718-7, PLTCT, BMP, 47773-5 #### [facility] ([id number]) [address], [address] [place] [address] Monocytes (Bld) [#/Vol] 0.4 10*3/uL Normal 0-0.9 [facility] Comment on above: Performed By: #### P INR, 14867-7, 718-7, PLTCT, BMP, 52025-1 #### [facility] ([id number]) [address], [facility] [address] [place] [address] Monocytes/100 WBC (Bld) 6.0 % Normal [facility] Comment on above: Performed By: #### P INR, 68769-0, 718-7, PLTCT, BMP, 81814-1 #### [facility] ([id number]) [address], [address] [place] [address] Neutrophils/100 WBC (Bld) 62.9 % Normal [facility] Comment on above: Performed By: #### P INR, 58461-0, 718-7, PLTCT, BMP, 81367-9 #### [facility] ([id number]) [address], [address] [place] [address] Platelet mean volume (Bld) [Entitic vol] 8.7 fL Normal 7-12 [facility] Comment on above: Performed By: #### P INR, 74210-4, 718-7, PLTCT, BMP, 88608-5 #### [facility] ([id number]) [address], [address] [place] [address] Platelets (Bld) [#/Vol] 229 10*3/uL Normal 150-450 [facility] Comment on above: Performed By: #### P INR, 52058-7, 718-7, PLTCT, BMP, 08060-5 #### [facility] ([id number]) [address], [address] [place] [address] RBC COUNT 3.69 X10E12/L Low 3.80-5.20 [facility] Comment on above: Performed By: #### P INR, 24902-5, 718-7, PLTCT, BMP, 98532-4 #### [facility] ([id number]) [address], [address] [place] [address] WBC (Bld) [#/Vol] 7.3 10*3/uL Normal 4.0-11.0 [facility] Comment on above: Performed By: #### P INR, 93906-2, 718-7, PLTCT, BMP, 92830-3 #### [facility] ([id number]) [address], [address] [place] [address] CBC auto differentialon 04-0 Basophils (Bld) [#/Vol] 0.0 10*3/uL [facility] Basophils/100 WBC (Bld) 0.4 % [facility] Eosinophils (Bld) [#/Vol] 0.0 10*3/uL [facility] Eosinophils/100 WBC (Bld) 0.3 % [facility] Erythrocyte distribution width (RBC) [Ratio] 12.7 % 11.5 - 15.0 % [facility] Hematocrit (Bld) [Volume fraction] 38.1 % 35 - 47 % [facility] Hemoglobin (Bld) [Mass/Vol] 12.7 g/dL 11.7 - 15.5 g/dL [facility] Interpretation and review of laboratory results Abnormal [facility] Lymphocytes (Bld) [#/Vol] 2.2 10*3/uL [facility] Lymphocytes/100 WBC (Bld) 30.4 % [facility] MCH (RBC) [Entitic mass] 34.3 pg High 27 - 34 pg [facility] MCHC (RBC) [Mass/Vol] 33.3 g/dL 32 - 36 g/dL [facility] MCV (RBC) [Entitic vol] 103 fL High 80 - 100 fL [facility] Monocytes (Bld) [#/Vol] 0.4 10*3/uL [facility] Monocytes/100 WBC (Bld) 6.0 % [facility] Neutrophils (Bld) [#/Vol] 4.6 10*3/uL [facility] Neutrophils/100 WBC (Bld) 62.9 % [facility] Platelet mean volume (Bld) [Entitic vol] 8.7 fL 7 - 12 fL [facility] Platelets (Bld) [#/Vol] 229 10*3/uL [facility] RBC (Bld) [#/Vol] 3.69 10*6/uL Low [facility] WBC corrected for nucl RBC Auto (Bld) [#/Vol] 7.3 [facility] CREATININEon 10-15-2023 Creatinine [Mass/Vol] 0.81 mg/dL Normal 0.40-1.00 [facility] Comment on above: Result Comment: METH OD TRACEABLE TO IDMS STANDARD Performed By: #### P INR, 16776-6, 718-7, PLTCT, BMP, 89970-3 #### [facility] ([id number]) [address] [facility] [facility] [address] [place] [address] GFR/1.73 sq M.predicted among non-blacks MDRD (S/P/Bld) [Vol rate/Area] 79 mL/min/{1.73_m2} Normal >59 [facility] Comment on above: Result Comment: Reported eGFR is based on the CKD-EPI 2020 equation that does not use a race coefficient. Performed By: #### P INR, 54171-5, 718-7, PLTCT, BMP, 68697-3 #### [facility] ([id number]) [address] [facility] [facility] [place] [address] Creatinine includes GFR, ser umon 10-15-2023 Creatinine [Mass/Vol] 0.81 mg/dL 0.40 - 1.00 mg/dL [facility] Comment on above: METHOD TRACEABLE TO IDIN STANDARD eGFR (CKD-EPI)non-race dependent 79 - PINF [facility] Comment on above: Reported eGFR is based on the CKD-EPI 2020 equation that does not use a race coefficient. HEMOGLOBINon 10-15-2023 Hemoglobin (Bld) [Mass/Vol] 12.7 g/dL Normal 11.7-15.5 [facility] Comment on above: Performed By: #### P INR, 44658-5, 718-7, PLTCT, BMP, 23016-6 #### [facility] ([id number]) [address] [facility] [place] [address] Hemoglobinon 10-15-2023 Hemoglobin (Bld) [Mass/Vol] 12.7 g/dL 11.7 - 15.5 g/dL [facility] Ionized magnesiumon 10-15-19 Magnesium Ionized ISE (Bld) [Moles/Vol] 0.53 mmol/L 0.45 - 0.74 mmol/L [facility] Comment on above: NEW REFERENCE RANGE MAGNESIUMon 10-15-2023 Magnesium [Mass/Vol] 1.8 mg/dL Normal 1.8-2.6 [facility] Comment on above: Result Comment: SPEC IMEN HEMOLYZED, RESULTS INCREASED MARKEDLY HEMOLYZED Performed By: #### P INR, 01342-9, 718-7, PLTCT, BMP, 92978-1 #### [facility] ([id number]) [address], [address] [place] [address] Magnesiumon 10-15-2023 Magnesium [Mass/Vol] 1.8 mg/dL 1.8 - 2.6 mg/dL [facility] Comment on above: SPECIMEN HEMOLYZED, RESULTS INCREASED MARKEDLY HEMOLYZED Magnesium Ionized ISE (Bld) [Moles/Vol]on 10-15-2023 Magnesium [Moles/Vol] 0.53 mmol/L Normal 0.45-0.74 [facility] Comment on above: Result Comment: NEW REFERENCE RANGE Performed By: #### P INR, 50666-5, 718-7, PLTCT, BMP, 78596-5 #### [facility] ([id number]) [address], [address] [place] [address] [facility] No Panel Informationon 10-14 Interpretation and review of laboratory results Abnormal [facility] PHOSPHORUSon 10-15-2023 Phosphate [Mass/Vol] 5.7 mg/dL High 2.4-4.9 [facility] Comment on above: Result Comment: SPEC IMEN HEMOLYZED, RESULTS INCREASED MODERATELY HEMOLYZED Performed By: #### P INR, 70988-0, 718-7, PLTCT, BMP, 43038-1 #### [facility] ([id number]) [address], [address] [place] [address] PLATELET COUNT AND MPVon Platelet mean volume (Bld) [Entitic vol] 8.3 fL Normal 7-12 [facility] Comment on above: Performed By: #### P INR, 25551-5, 718-7, PLTCT, BMP, 27452-2 #### [facility] ([id number]) [address], [address] [place] [address] Platelets (Bld) [#/Vol] 219 10*3/uL Normal 150-450 [facility] Comment on above: Performed By: #### P INR, 48422-7, 718-7, PLTCT, BMP, 18501-9 #### [facility] ([id number]) [address], [address] [place] [address] Phosphoruson 10-15-2023 Phosphate [Mass/Vol] 5.7 mg/dL High 2.4 - 4.9 mg/dL [facility] Comment on above: SPECIMEN HEMOLYZED, RESULTS INCREASED MODERATELY HEMOLYZED Platelet counton 10-15-2023 Platelet mean volume (Bld) [Entitic vol] 8.3 fL 7 - 12 fL [facility] Platelets (Bld) [#/Vol] 219 10*3/uL [facility] Single view[facility] 10-14 Kay Dunn DO - 10/15/2023 Procedure: Chest x-ray performed Number of views:AP view History:Hypoxia Comparison:10/12/2023 Findings: The heart and mediastinal silhouette are stable. There is pulmonary vascular congestion. There are no focal consolidations. There is a small left pleural effusion. There is no pneumothorax Impression: Pulmonary vascular congestion. Finalized by Kay Dunn DO on 10/15/2023 10:48 AM [facility] [employer] Radiology Study observation (narrative) [employer] [facility] [employer] XR Chest Single viewOrdered By: Kay Dunn on 10-15-2023 [facility] Work Phone: Anti XA unfractionated hepar inon 10-14-2023 Heparin unfractionated Chromogenic method Qn (PPP) Low [facility] Comment on above: Optimal time for marky ting is 6 hrs post dosage This test is specific for monitoring patients on UFH, and is not recommended for use with other Anti-Xa medications. Heparin unfractionated Chromogenic method Qn (PPP) 0.68 [facility] Comment on above: Optimal time for marky ting is 6 hrs post dosage This test is specific for monitoring patients on UFH, and is not recommended for use with other Anti-Xa medications. BASIC METABOLIC PANLon 10-13 Anion gap [Moles/Vol] 11 mmol/L Normal 5-15 [facility] Comment on above: Performed By: #### P INR, 77163-2, 718-7, PLTCT, BMP, 07858-1 #### [facility] ([id number]) [address] [facility] [place] [address] Calcium [Mass/Vol] 7.4 mg/dL Low 8.5-10.5 [facility] Comment on above: Performed By: #### P INR, 66760-1, 718-7, PLTCT, BMP, 10799-2 #### [facility] ([id number]) [address], [address] [place] [address] Chloride [Moles/Vol] 100 mmol/L Normal 98-109 [facility] Comment on above: Performed By: #### P INR, 25499-5, 718-7, PLTCT, BMP, 76031-3 #### [facility] ([id number]) [address], [address] [place] [address] CO2 [Moles/Vol] 30 mmol/L Normal 22-32 [facility] Comment on above: Performed By: #### P INR, 71482-3, 718-7, PLTCT, BMP, 00484-7 #### [facility] ([id number]) [address], [address] [place] [address] Creatinine [Mass/Vol] 1.05 mg/dL High 0.40-1.00 [facility] Comment on above: Result Comment: METH OD TRACEABLE TO IDMS STANDARD Performed By: #### P INR, 09801-9, 718-7, PLTCT, BMP, 07929-4 #### [facility] ([id number]) [address], [address] [place] [address] GFR/1.73 sq M.predicted among non-blacks MDRD (S/P/Bld) [Vol rate/Area] 58 mL/min/{1.73_m2} Low >59 [facility] Comment on above: Result Comment: Reported eGFR is based on the CKD-EPI 2020 equation that does not use a race coefficient. Performed By: #### P INR, 32066-7, 718-7, PLTCT, BMP, 57240-1 #### [facility] ([id number]) [address], [address] [place] [address] Glucose [Mass/Vol] 122 mg/dL High 65-99 [facility] Comment on above: Performed By: #### P INR, 56919-5, 718-7, PLTCT, BMP, 69027-1 #### [facility] ([id number]) [address], [address] [place] [address] Potassium [Moles/Vol] 4.4 mmol/L Normal 3.5-5.0 [facility] Comment on above: Performed By: #### P INR, 85545-3, 718-7, PLTCT, BMP, 45229-2 #### [facility] ([id number]) [address], [address] [place] [address] Sodium [Moles/Vol] 141 mmol/L Normal 134-146 [facility] Comment on above: Performed By: #### P INR, 88827-4, 718-7, PLTCT, BMP, 39098-3 #### [facility] ([id number]) [address], [facility] [address] [place] [address] Urea nitrogen [Mass/Vol] 22 mg/dL Normal 5-27 [facility] Comment on above: Performed By: #### P INR, 58787-9, 718-7, PLTCT, BMP, 59119-9 #### [facility] ([id number]) [address], [address] [address] Basic Metabolic Panelon 04-0 Anion gap [Moles/Vol] 11 mmol/L 5 - 15 mmol/L [facility] Calcium [Mass/Vol] 7.4 mg/dL Low 8.5 - 10. 5 mg/dL [facility] Chloride [Moles/Vol] 100 mmol/L 98 - 109 mmol/L [facility] CO2 [Moles/Vol] 30 mmol/L 22 - 32 mmol/L [facility] Creatinine [Mass/Vol] 1.05 mg/dL High 0.40 - 1.00 mg/dL [facility] Comment on above: METHOD TRACEABLE TO IDMS STANDARD eGFR (CKD-EPI)non-race dependent 58 Low - PINF [facility] Comment on above: Reported eGFR is based on the CKD-EPI 2020 equation that does not use a race coefficient. Glucose [Mass/Vol] 122 mg/dL High 65 - 99 mg/dL [facility] Interpretation and review of laboratory results Abnormal [facility] Potassium [Moles/Vol] 4.4 mmol/L 3.5 - 5.0 mmol/L [facility] Sodium [Moles/Vol] 141 mmol/L 134 - 146 mmol/L [facility] Urea nitrogen [Mass/Vol] 22 mg/dL 5 - 27 mg/dL [facility] CBC without diffon Erythrocyte distribution width (RBC) [Ratio] 13.0 % 11.5 - 15.0 % [facility] Hematocrit (Bld) [Volume fraction] 37.7 % 35 - 47 % [facility] Hemoglobin (Bld) [Mass/Vol] 12.5 g/dL 11.7 - 15.5 g/dL [facility] Interpretation and review of laboratory results Abnormal [facility] MCH (RBC) [Entitic mass] 34.4 pg High 27 - 34 pg [facility] MCHC (RBC) [Mass/Vol] 33.1 g/dL 32 - 36 g/dL [facility] MCV (RBC) [Entitic vol] 104 fL High 80 - 100 fL [facility] Platelet mean volume (Bld) [Entitic vol] 8.8 fL 7 - 12 fL [facility] Platelets (Bld) [#/Vol] 207 10*3/uL [facility] RBC (Bld) [#/Vol] 3.64 10*6/uL Low [facility] WBC corrected for nucl RBC Auto (Bld) [#/Vol] 8.4 [facility] COMPLETE BLOOD COUNTon 10-13 Erythrocyte distribution width (RBC) [Ratio] 13.0 % Normal 11.5-15.0 [facility] Comment on above: Performed By: #### P INR, 62040-1, 718-7, PLTCT, BMP, 61112-6 #### [facility] ([id number]) [address] [facility] [facility], [address] [place] [address] Hematocrit (Bld) [Volume fraction] 37.7 % Normal 35-47 [facility] Comment on above: Performed By: #### P INR, 37758-6, 718-7, PLTCT, BMP, 83588-3 #### [facility] ([id number]) [address], [address] [place] [address] Hemoglobin (Bld) [Mass/Vol] 12.5 g/dL Normal 11.7-15.5 [facility] Comment on above: Performed By: #### P INR, 31682-0, 718-7, PLTCT, BMP, 08464-2 #### [facility] ([id number]) [address], [facility] [address] [place] [address] MCH (RBC) [Entitic mass] 34.4 pg High 27-34 [facility] Comment on above: Performed By: #### P INR, 87030-7, 718-7, PLTCT, BMP, 32133-1 #### [facility] ([id number]) [address], [address] [place] [address] MCHC (RBC) [Mass/Vol] 33.1 g/dL Normal 32-36 [facility] Comment on above: Performed By: #### P INR, 72442-6, 718-7, PLTCT, BMP, 74244-6 #### [facility] ([id number]) [address], [address] [place] [address] MCV (RBC) [Entitic vol] 104 fL High 80-100 [facility] Comment on above: Performed By: #### P INR, 37810-3, 718-7, PLTCT, BMP, 75246-0 #### [facility] ([id number]) [address], [address] [place] [address] Platelet mean volume (Bld) [Entitic vol] 8.8 fL Normal 7-12 [facility] Comment on above: Performed By: #### P INR, 83387-7, 718-7, PLTCT, BMP, 96260-2 #### [facility] ([id number]) [address], [address] [place] [address] Platelets (Bld) [#/Vol] 207 10*3/uL Normal 150-450 [facility] Comment on above: Performed By: #### P INR, 28676-6, 718-7, PLTCT, BMP, 36848-2 #### [facility] ([id number]) [address], [address] [place] [address] RBC COUNT 3.64 X10E12/L Low 3.80-5.20 [facility] Comment on above: Performed By: #### P INR, 39025-8, 718-7, PLTCT, BMP, 96855-6 #### [facility] ([id number]) [address], [address] [place] [address] WBC (Bld) [#/Vol] 8.4 10*3/uL Normal 4.0-11.0 [facility] Comment on above: Performed By: #### P INR, 98248-8, 718-7, PLTCT, BMP, 83483-5 #### [facility] ([id number]) [address], [address] [place] [address] Calcium.ionized (Bld) [Mass/ Vol]on 10-14-2023 IONIZED CALCIUM 4.3 mg/dL Low 4.5-5.3 [facility] Comment on above: Performed By: #### P INR, 32021-5, 718-7, PLTCT, BMP, 82144-1 #### [facility] ([id number]) [address], [address] [place] [address] Interpretation and review of laboratory results Abnormal [facility] IONIZED CALCIUM 3.9 mg/dL Low 4.5-5.3 [facility] Comment on above: Performed By: #### P INR, 01814-5, 718-7, PLTCT, BMP, 91109-7 #### [facility] ([id number]) [address], [address] [place] [address] Interpretation and review of laboratory results Abnormal [facility] IONIZED CALCIUM 4.1 mg/dL Low 4.5-5.3 [facility] Comment on above: Performed By: #### P INR, 66707-4, 718-7, PLTCT, BMP, 34221-2 #### [facility] ([id number]) [address], [address] [place] [address] Interpretation and review of laboratory results Abnormal [facility] Coronary angiography perform edon 10-14-2023 Addendum [...] the distal LAD after that reconstitutes via [id number] collaterals. The vessel is extremely small and not amenable to PCI. Intervention No interventions have been documented. Right Atrium Normal left and right heart filling pressures. Normal pulmonary arterial pressure mildly elevated left ventricular end-diastolic pressure normal cardiac output and cardiac index. [facility] Radiology Study observation (narrative) [facility] ECG 12 leadon 10-14-2023 TRACEMASTERVUE [facility] HGB A1C (GLYCO-HGB)on 2023 Glucose [Mass/Vol] 91 mg/dL Normal [facility] Comment on above: Performed By: #### P INR, 25502-3, 718-7, PLTCT, BMP, 24608-9 #### [facility] ([id number]) [address] [facility] [facility] [place] [address] HbA1c (Bld) [Mass fraction] 4.8 % Normal 4.4-5.6 [facility] Comment on above: Result Comment: NOTE ADA Guidelines Result HgbA1c Normal : less than 5.7 % Prediabetes : 5.7 % to 6.4 % Diabetes : > 6.4 % Use with caution in patients with abnormal hemoglobin variants as the half-life of red blood cells and in vivo glycation rates are affected. Performed By: #### P INR, 31282-7, 718-7, PLTCT, BMP, 16805-8 #### [facility] ([id number]) [address], [address] [place] [address] Hemoglobin A1con 10-14-2023 Average glucose Estimated from glycated hemoglobin (Bld) [Mass/Vol] 91 mg/dL [facility] HbA1c (Bld) [Mass fraction] 4.8 % 4.4 - 5.6 % [facility] Comment on above: NOTE ADA Guidelines Result HgbA1c Normal : less than 5.7 % Prediabetes : 5.7 % to 6.4 % Diabetes : > 6.4 % Use with caution in patients with abnormal hemoglobin variants as the half-life of red blood cells and in vivo glycation rates are affected. [facility] Heparin unfractionated Chrom ogenic method Qn (PPP)on 10-14-2023 ANTI XA UFH <0.04 Low 0.30-0.70 [facility] Comment on above: Result Comment: Opti mal time for testing is 6 hrs post dosage This test is specific for monitoring patients on UFH, and is not recommended for use with other Anti-Xa medications. Performed By: #### P INR, 20882-8, 718-7, PLTCT, BMP, 04674-2 #### [facility] ([id number]) [address], [address] [place] [address] Interpretation and review of laboratory results Abnormal [facility] ANTI XA UFH 0.68 IU/mL Normal 0.30-0.70 [facility] Comment on above: Result Comment: Opti mal time for testing is 6 hrs post dosage This test is specific for monitoring patients on UFH, and is not recommended for use with other Anti-Xa medications. Performed By: #### P INR, 82623-4, 718-7, PLTCT, BMP, 06914-9 #### [facility] ([id number]) [address], [address] [place] [address] [facility] Ionized calciumon 10-14-2023 Calcium.ionized (Bld) [Mass/Vol] 4.3 mg/dL Low 4.5 - 5.3 mg/dL [facility] Calcium.ionized (Bld) [Mass/Vol] 3.9 mg/dL Low 4.5 - 5.3 mg/dL [facility] Calcium.ionized (Bld) [Mass/Vol] 4.1 mg/dL Low 4.5 - 5.3 mg/dL [facility] Ionized magnesiumon 10-14-19 Magnesium Ionized ISE (Bld) [Moles/Vol] 0.54 mmol/L 0.45 - 0.74 mmol/L [facility] Comment on above: NEW REFERENCE RANGE Lipid 1996 panelon 4 Cholesterol [Mass/Vol] 135 mg/dL Low 150-200 [facility] Comment on above: Performed By: #### P INR, 49361-6, 718-7, PLTCT, BMP, 63770-9 #### [facility] ([id number]) [address] [facility] [place] [address] Cholesterol in HDL [Mass/Vol] 59 mg/dL Normal >39 [facility] Comment on above: Result Comment: HDL <40 mg/dL - High Risk HDL > or = 40mg/dL- Desirable HDL >60 mg/dL - Negative Risk Performed By: #### P INR, 25106-8, 718-7, PLTCT, BMP, 70279-6 #### [facility] ([id number]) [address] [place] [address], [address] [place] [address] Cholesterol in LDL [Mass/Vol] 46 mg/dL Normal <130 [facility] Comment on above: Result Comment: LDL <100 mg/dL - Desirable LDL >160 mg/dL - High Risk Performed By: #### P INR, 62784-1, 718-7, PLTCT, BMP, 28111-3 #### [facility] ([id number]) [facility] [address] [facility] [place] [address] Cholesterol in VLDL [Mass/Vol] 30 mg/dL Normal 0-30 [facility] Comment on above: Performed By: #### P INR, 92044-1, 718-7, PLTCT, BMP, 53247-7 #### [facility] ([id number]) [address], [address] [place] [address] CHOLESTEROL:HDL 2.3 Normal 1.0-5.0 [facility] Comment on above: Performed By: #### P INR, 10249-3, 718-7, PLTCT, BMP, 56270-0 #### [facility] ([id number]) [address], [address] [place] [address] Triglyceride [Mass/Vol] 150 mg/dL Normal 27-150 [facility] Comment on above: Performed By: #### P INR, 30092-3, 718-7, PLTCT, BMP, 21849-0 #### [facility] ([id number]) [address], [address] [address] Cholesterol [Mass/Vol] 135 mg/dL Low 150 - 200 mg/dL [facility] Cholesterol in HDL [Mass/Vol] 59 mg/dL 39 - PINF mg/dL [facility] Comment on above: HDL <40 mg/dL - High Risk HDL > or = 40mg/dL- Desirable HDL >60 mg/dL - Negative Risk Cholesterol in LDL [Mass/Vol] 46 mg/dL NINF - 130 mg/dL [facility] Comment on above: LDL <100 mg/dL - Desirable LDL >160 mg/dL - High Risk Cholesterol in VLDL [Mass/Vol] 30 mg/dL 0 - 30 mg/dL [facility] Cholesterol.total/ Cholesterol in HDL [Mass ratio] 2.3 {ratio} 1.0 - 5.0 [facility] Interpretation and review of laboratory results Abnormal [facility] Triglyceride [Mass/Vol] 150 mg/dL 27 - 150 mg/dL [facility] MAGNESIUMon 10-14-2023 Magnesium [Mass/Vol] 1.8 mg/dL Normal 1.8-2.6 [facility] Comment on above: Performed By: #### P INR, 26340-4, 718-7, PLTCT, BMP, 49785-9 #### [facility] ([id number]) [address], [address] [place] [address] Magnesiumon 10-14-2023 Magnesium [Mass/Vol] 1.8 mg/dL 1.8 - 2.6 mg/dL [facility] Magnesium Ionized ISE (Bld) [Moles/Vol]on 10-14-2023 Magnesium [Moles/Vol] 0.54 mmol/L Normal 0.45-0.74 [facility] Comment on above: Result Comment: NEW REFERENCE RANGE Performed By: #### P INR, 06325-7, 718-7, PLTCT, BMP, 10619-3 #### [facility] ([id number]) [address] [facility] [place] [address] [facility] No Panel Informationon 10-13 [facility] APTTon 10-13-2023 aPTT Coag (PPP) [Time] 48 s [facility] Anti XA unfractionated hepar inon 10-13-2023 Heparin unfractionated Chromogenic method Qn (PPP) 0.74 [facility] Comment on above: Optimal time for marky ting is 6 hrs post dosage This test is specific for monitoring patients on UFH, and is not recommended for use with other Anti-Xa medications. Heparin unfractionated Chromogenic method Qn (PPP) 0.69 [facility] Comment on above: Optimal time for marky ting is 6 hrs post dosage This test is specific for monitoring patients on UFH, and is not recommended for use with other Anti-Xa medications. Heparin unfractionated Chromogenic method Qn (PPP) 0.72 [facility] Comment on above: Optimal time for marky ting is 6 hrs post dosage This test is specific for monitoring patients on UFH, and is not recommended for use with other Anti-Xa medications. BASIC METABOLIC PANLon 10-12 Anion gap [Moles/Vol] 13 mmol/L Normal 5-15 [facility] Comment on above: Performed By: #### P INR, 06789-5, 718-7, PLTCT, BMP, 59994-5 #### [facility] ([id number]) [address], [address] [place] [address] Calcium [Mass/Vol] 6.3 mg/dL Critically low 8.5-10.5 [facility] Comment on above: Performed By: #### P INR, 83860-6, 718-7, PLTCT, BMP, 21051-8 #### [facility] ([id number]) [address], [address] [place] [address] Chloride [Moles/Vol] 100 mmol/L Normal 98-109 [facility] Comment on above: Performed By: #### P INR, 63041-2, 718-7, PLTCT, BMP, 52820-2 #### [facility] ([id number]) [address] [address] [place] [address] CO2 [Moles/Vol] 30 mmol/L Normal 22-32 [facility] Comment on above: Performed By: #### P INR, 86129-8, 718-7, PLTCT, BMP, 89428-6 #### [facility] ([id number]) [address], [address] [place] [address] Creatinine [Mass/Vol] 0.79 mg/dL Normal 0.40-1.00 [facility] Comment on above: Result Comment: METH OD TRACEABLE TO IDMS STANDARD Performed By: #### P INR, 16674-4, 718-7, PLTCT, BMP, 62055-1 #### [facility] ([id number]) [address], [address] [place] [address] GFR/1.73 sq M.predicted among non-blacks MDRD (S/P/Bld) [Vol rate/Area] 81 mL/min/{1.73_m2} Normal >59 [facility] Comment on above: Result Comment: Reported eGFR is based on the CKD-EPI 2020 equation that does not use a race coefficient. Performed By: #### P INR, 45672-6, 718-7, PLTCT, BMP, 23194-4 #### [facility] ([id number]) [address] [address] [place] [address] Glucose [Mass/Vol] 157 mg/dL High 65-99 [facility] Comment on above: Performed By: #### P INR, 98230-0, 718-7, PLTCT, BMP, 74474-2 #### [facility] ([id number]) [address], [facility] [address] [place] [address] Potassium [Moles/Vol] 3.4 mmol/L Low 3.5-5.0 [facility] Comment on above: Performed By: #### P INR, 81249-2, 718-7, PLTCT, BMP, 90723-7 #### [facility] ([id number]) [address] [address] [place] [address] Sodium [Moles/Vol] 143 mmol/L Normal 134-146 [facility] Comment on above: Performed By: #### P INR, 40627-2, 718-7, PLTCT, BMP, 50815-0 #### [facility] ([id number]) [address] [address] [place] [address] Urea nitrogen [Mass/Vol] 16 mg/dL Normal 5-27 [facility] Comment on above: Performed By: #### P INR, 23352-1, 718-7, PLTCT, BMP, 54628-5 #### [facility] ([id number]) [address], [facility] [address] [place] [address] Anion gap [Moles/Vol] 15 mmol/L Normal 5-15 [facility] Comment on above: Performed By: #### P INR, 37068-9, 718-7, PLTCT, BMP, 29698-3 #### [facility] ([id number]) [address], [address] [place] [address] Calcium [Mass/Vol] 6.5 mg/dL Critically low 8.5-10.5 [facility] Comment on above: Performed By: #### P INR, 15992-4, 718-7, PLTCT, BMP, 10211-1 #### [facility] ([id number]) [address], [address] [place] [address] Chloride [Moles/Vol] 100 mmol/L Normal 98-109 [facility] Comment on above: Performed By: #### P INR, 04047-4, 718-7, PLTCT, BMP, 15633-4 #### [facility] ([id number]) [address], [address] [place] [address] CO2 [Moles/Vol] 30 mmol/L Normal 22-32 [facility] Comment on above: Performed By: #### P INR, 38970-6, 718-7, PLTCT, BMP, 80698-3 #### [facility] ([id number]) [address], [address] [place] [address] Creatinine [Mass/Vol] 0.88 mg/dL Normal 0.40-1.00 [facility] Comment on above: Result Comment: METH OD TRACEABLE TO IDMS STANDARD Performed By: #### P INR, 92908-4, 718-7, PLTCT, BMP, 45460-4 #### [facility] ([id number]) [address], [address] [place] [address] GFR/1.73 sq M.predicted among non-blacks MDRD (S/P/Bld) [Vol rate/Area] 71 mL/min/{1.73_m2} Normal >59 [facility] Comment on above: Result Comment: Reported eGFR is based on the CKD-EPI 2020 equation that does not use a race coefficient. Performed By: #### P INR, 34099-2, 718-7, PLTCT, BMP, 01741-3 #### [facility] ([id number]) [address], [address] [place] [address] Glucose [Mass/Vol] 154 mg/dL High 65-99 [facility] Comment on above: Performed By: #### P INR, 47421-3, 718-7, PLTCT, BMP, 40986-4 #### [facility] ([id number]) [address], [address] [place] [address] Potassium [Moles/Vol] 3.4 mmol/L Low 3.5-5.0 [facility] Comment on above: Performed By: #### P INR, 73916-4, 718-7, PLTCT, BMP, 03484-5 #### [facility] ([id number]) [address], [address] [place] [address] Sodium [Moles/Vol] 145 mmol/L Normal 134-146 [facility] Comment on above: Performed By: #### P INR, 57887-2, 718-7, PLTCT, BMP, 61969-0 #### [facility] ([id number]) [address], [address] [place] [address] Urea nitrogen [Mass/Vol] 16 mg/dL Normal 5-27 [facility] Comment on above: Performed By: #### P INR, 65230-1, 718-7, PLTCT, BMP, 80005-6 #### [facility] ([id number]) [address], [address] [place] [address] Basic Metabolic Panelon 04-0 Anion gap [Moles/Vol] 13 mmol/L 5 - 15 mmol/L [facility] Calcium [Mass/Vol] 6.3 mg/dL Critically low 8.5 - 1 0.5 mg/dL [facility] Chloride [Moles/Vol] 100 mmol/L 98 - 109 mmol/L [facility] CO2 [Moles/Vol] 30 mmol/L 22 - 32 mmol/L [facility] Creatinine [Mass/Vol] 0.79 mg/dL 0.40 - 1.00 mg/dL [facility] Comment on above: METHOD TRACEABLE TO [facility] STANDARD eGFR (CKD-EPI)non-race dependent 81 - PINF [facility] Comment on above: Reported eGFR is based on the CKD-EPI 2021 equation that does not use a race coefficient. Glucose [Mass/Vol] 157 mg/dL High 65 - 99 mg/dL [facility] Interpretation and review of laboratory results Abnormal [facility] Potassium [Moles/Vol] 3.4 mmol/L Low 3.5 - 5.0 mmol/L [facility] Sodium [Moles/Vol] 143 mmol/L 134 - 146 mmol/L [facility] Urea nitrogen [Mass/Vol] 16 mg/dL 5 - 27 mg/dL [facility] Anion gap [Moles/Vol] 15 mmol/L 5 - 15 mmol/L [facility] Calcium [Mass/Vol] 6.5 mg/dL Critically low 8.5 - 1 0.5 mg/dL [facility] Chloride [Moles/Vol] 100 mmol/L 98 - 109 mmol/L [facility] CO2 [Moles/Vol] 30 mmol/L 22 - 32 mmol/L [facility] Creatinine [Mass/Vol] 0.88 mg/dL 0.40 - 1.00 mg/dL [facility] Comment on above: METHOD TRACEABLE TO [facility] STANDARD eGFR (CKD-EPI)non-race dependent 71 - PINF [facility] Comment on above: Reported eGFR is based on the CKD-EPI 2021 equation that does not use a race coefficient. Glucose [Mass/Vol] 154 mg/dL High 65 - 99 mg/dL [facility] Potassium [Moles/Vol] 3.4 mmol/L Low 3.5 - 5.0 mmol/L [facility] Sodium [Moles/Vol] 145 mmol/L 134 - 146 mmol/L [facility] Urea nitrogen [Mass/Vol] 16 mg/dL 5 - 27 mg/dL [facility] CBC AND AUTO DIFFon 10-13-19 24 ABSOLUTE BASOPHIL 0.0 X10E9/L Normal 0.0-0.2 [facility] Comment on above: Performed By: #### C BCA, , THYR, 27733-9 #### [facility] ([id number]) [address], [address] [place] [address] ABSOLUTE NEUTROPHIL 4.2 X10E9/L Normal 1.5-6.6 [facility] Comment on above: Performed By: #### Berhane ÁLVAREZ, , THYR, 70455-1 #### [facility] ([id number]) [address] [place] [address] Basophils/100 WBC (Bld) 0.1 % Normal [facility] Comment on above: Performed By: #### Berhane ÁLVAREZ, , THYR, 02191-3 #### [facility] ([id number]) [address], [address] [place] [address] Eosinophils (Bld) [#/Vol] 0.0 10*3/uL Normal 0.0-0.4 [facility] Comment on above: Performed By: #### Berhane BCA, , THYR, 37511-2 #### [facility] ([id number]) [address], [address] [place] [address] Eosinophils/100 WBC (Bld) 0.0 % Normal [facility] Comment on above: Performed By: #### Berhane BCA, , THYR, 51113-0 #### [facility] ([id number]) [address], [address] [place] [address] Erythrocyte distribution width (RBC) [Ratio] 12.5 % Normal 11.5-15.0 [facility] Comment on above: Performed By: #### C BCA, , THYR, 18330-5 #### [facility] ([id number]) [address], [address] [place] [address] Hematocrit (Bld) [Volume fraction] 39.2 % Normal 35-47 [facility] Comment on above: Performed By: #### Berhane BCA, , THYR, 45402-5 #### [facility] ([id number]) [address], [facility] [address] [place] [address] Hemoglobin (Bld) [Mass/Vol] 13.2 g/dL Normal 11.7-15.5 [facility] Comment on above: Performed By: #### Berhane BCA, , THYR, 89852-6 #### [facility] ([id number]) [address] [address] [place] [address] Lymphocytes (Bld) [#/Vol] 0.9 10*3/uL Low 1.0-3.5 [facility] Comment on above: Performed By: #### Berhane BCA, , THYR, 52632-0 #### [facility] ([id number]) [address] [address] [place] [address] Lymphocytes/100 WBC (Bld) 17.5 % Normal [facility] Comment on above: Performed By: #### C BCA, , THYR, 35574-3 #### [facility] ([id number]) [address], [address] [place] [address] MCH (RBC) [Entitic mass] 34.6 pg High 27-34 [facility] Comment on above: Performed By: #### C BCA, , THYR, 55666-4 #### [facility] ([id number]) [address], [address] [place] [address] MCHC (RBC) [Mass/Vol] 33.6 g/dL Normal 32-36 [facility] Comment on above: Performed By: #### Berhane ÁLVAREZ, , THYR, 11928-2 #### [facility] ([id number]) [address] [address] [place] [address] MCV (RBC) [Entitic vol] 103 fL High 80-100 [facility] Comment on above: Performed By: #### Berhane ÁLVAREZ, , THYR, 10476-3 #### [facility] ([id number]) [address], [facility] [address] [place] [address] Monocytes (Bld) [#/Vol] 0.1 10*3/uL Normal 0-0.9 [facility] Comment on above: Performed By: #### Berhane ÁLVAREZ, , THYR, 71309-2 #### [facility] ([id number]) [address], [facility] [address] [place] [address] Monocytes/100 WBC (Bld) 2.5 % Normal [facility] Comment on above: Performed By: #### Berhane BCA, , THYR, 24947-9 #### [facility] ([id number]) [address] [address] [place] [address] Neutrophils/100 WBC (Bld) 79.9 % Normal [facility] Comment on above: Performed By: #### Berhane BCA, , THYR, 20730-3 #### [facility] ([id number]) [address], [facility] [address] [place] [address] Platelet mean volume (Bld) [Entitic vol] 8.6 fL Normal 7-12 [facility] Comment on above: Performed By: #### Berhane BCA, , THYR, 38028-6 #### [facility] ([id number]) [address], [address] [place] [address] Platelets (Bld) [#/Vol] 176 10*3/uL Normal 150-450 [facility] Comment on above: Performed By: #### Berhane BCA, 33822-0, THYR, 09833-3 #### [facility] ([id number]) [address], [address] [place] [address] RBC COUNT 3.80 X10E12/L Normal 3.80-5.20 [facility] Comment on above: Performed By: #### Berhane ÁLVAREZ, 12245-1, THYR, 92801-5 #### [facility] ([id number]) [address], [facility] [address] [place] [address] WBC (Bld) [#/Vol] 5.3 10*3/uL Normal 4.0-11.0 [facility] Comment on above: Performed By: #### Berhane ÁLVAREZ, , THYR, 87889-2 #### [facility] ([id number]) [address], [address] [place] [address] CBC auto differentialon 04-0 Basophils (Bld) [#/Vol] 0.0 10*3/uL [facility] Basophils/100 WBC (Bld) 0.1 % [facility] Eosinophils (Bld) [#/Vol] 0.0 10*3/uL [facility] Eosinophils/100 WBC (Bld) 0.0 % [facility] Erythrocyte distribution width (RBC) [Ratio] 12.5 % 11.5 - 15.0 % [facility] Hematocrit (Bld) [Volume fraction] 39.2 % 35 - 47 % [facility] Hemoglobin (Bld) [Mass/Vol] 13.2 g/dL 11.7 - 15.5 g/dL [facility] Interpretation and review of laboratory results Abnormal [facility] Lymphocytes (Bld) [#/Vol] 0.9 10*3/uL Low [facility] Lymphocytes/100 WBC (Bld) 17.5 % [facility] MCH (RBC) [Entitic mass] 34.6 pg High 27 - 34 pg [facility] MCHC (RBC) [Mass/Vol] 33.6 g/dL 32 - 36 g/dL [facility] MCV (RBC) [Entitic vol] 103 fL High 80 - 100 fL [facility] Monocytes (Bld) [#/Vol] 0.1 10*3/uL [facility] Monocytes/100 WBC (Bld) 2.5 % [facility] Neutrophils (Bld) [#/Vol] 4.2 10*3/uL [facility] Neutrophils/100 WBC (Bld) 79.9 % [facility] Platelet mean volume (Bld) [Entitic vol] 8.6 fL 7 - 12 fL [facility] Platelets (Bld) [#/Vol] 176 10*3/uL [facility] RBC (Bld) [#/Vol] 3.80 10*6/uL [facility] WBC corrected for nucl RBC Auto (Bld) [#/Vol] 5.3 [facility] Calcium.ionized (Bld) [Mass/ Vol]on 10-13-2023 IONIZED CALCIUM 3.9 mg/dL Low 4.5-5.3 [facility] Comment on above: Performed By: #### P INR, 97628-1, 718-7, PLTCT, BMP, 80878-4 #### [facility] ([id number]) [address], [address] [place] [address] Interpretation and review of laboratory results Abnormal [facility] IONIZED CALCIUM 3.8 mg/dL Low 4.5-5.3 [facility] Comment on above: Performed By: #### 3 8230-9, 01879-1 #### [facility] ([id number]) [address] [facility] [facility] [address] [place] [address] Cardiac echo study Procedure on 10-13-2023 Aortic root 2.90 cm [facility] AV mean gradient 2.00 mmHg [facility] peak gradient 3.68 mmHg [facility] AV peak jeannie 95.90 cm/s [facility] AV valve area 2.03 cm2 [facility] AV Velocity Ratio 0.65 [facility] AV VTI 18.60 cm [facility] E wave deceleration time 124.00 msec [facility] E/A ratio 1.81 [facility] FS 11 % 28 - 44 % [facility] Interventricular Septum Diastolic Thickness by 2D 9 cm [facility] IVS 0.90 cm 0.6 - 1.1 cm [facility] LA size 3.10 cm [facility] LA volume 35.80 cm3 [facility] LA Volume Index 20.8 mL/m2 [facility] Left Ventricle Mass [id number] g [facility] LV ESV A2C 39.00 mL [facility] LV ESV A4C 31.30 mL [facility] LV RWT 2D 44.44 [facility] LVIDd 4.50 cm [facility] LVIDs 4.00 cm [facility] LVOT diameter 2.00 cm [facility] LVOT peak jeannie 0.58 m/s [facility] LVOT peak VTI 12.00 cm [facility] LVOT stroke volume 37.70 ml [facility] MV Peak A Jeannie 49.50 cm/s [facility] MV Peak E Jeannie 89.70 cm/s [facility] MV pressure 1/2 time 36.00 ms [facility] MV TDI E' (medial) 10.60 cm/s [facility] MV valve area p 1/2 method 6.11 cm2 [facility] PW 1.00 cm 0.6 - 1.1 cm [facility] RA area 11.2 cm2 [facility] RV diastolic dimension (basal) 30.0 mm [facility] TAPSE 1.04 cm [facility] TDI 11.90 cm/s [facility] TR peak gradient 11.42 mmHg [facility] TR Peak Jeannie 1.7 m/s [facility] Valve area - Index 1.2 [facility] Left Ventricle: Syst olic function is severely [...] anteroseptal, apical septal and apical inferior. XCELERA [facility] Radiology Study observation (narrative) [facility] EKGon 10-13-2023 TRACEMASTERVUE [facility] Glucose Glucometer (BldC) [M ass/Vol]on 10-13-2023 Glucose [Mass/Vol] 173 mg/dL High 65-99 [facility] HEMOGLOBINon 10-13-2023 Hemoglobin (Bld) [Mass/Vol] 12.8 g/dL Normal 11.7-15.5 [facility] Comment on above: Performed By: #### P INR, 09527-4, 718-7, PLTCT, BMP, 56091-5 #### [facility] ([id number]) [address], [address] [place] [address] Hemoglobinon 10-13-2023 Hemoglobin (Bld) [Mass/Vol] 12.8 g/dL 11.7 - 15.5 g/dL [facility] Heparin unfractionated Chrom ogenic method Qn (PPP)on 10-13-2023 ANTI XA UFH 0.74 IU/mL High 0.30-0.70 [facility] Comment on above: Result Comment: Opti mal time for testing is 6 hrs post dosage This test is specific for monitoring patients on UFH, and is not recommended for use with other Anti-Xa medications. Performed By: #### P INR, 73656-3, 718-7, PLTCT, BMP, 98132-5 #### [facility] ([id number]) [address], [address] [place] [address] Interpretation and review of laboratory results Abnormal [facility] ANTI XA UFH 0.69 IU/mL Normal 0.30-0.70 [facility] Comment on above: Result Comment: Opti mal time for testing is 6 hrs post dosage This test is specific for monitoring patients on UFH, and is not recommended for use with other Anti-Xa medications. Performed By: #### P INR, 71681-2, 718-7, PLTCT, BMP, 37981-9 #### [facility] ([id number]) [address] [place] [address] [facility] ANTI XA UFH 0.72 IU/mL High 0.30-0.70 [facility] Comment on above: Result Comment: Opti mal time for testing is 6 hrs post dosage This test is specific for monitoring patients on UFH, and is not recommended for use with other Anti-Xa medications. Performed By: #### P INR, 55544-9, 718-7, PLTCT, BMP, 64490-0 #### [facility] ([id number]) [address] [facility] [facility] [address] [place] [address] Interpretation and review of laboratory results Abnormal [facility] Ionized calciumon 10-13-2023 Calcium.ionized (Bld) [Mass/Vol] 3.9 mg/dL Low 4.5 - 5.3 mg/dL [facility] Calcium.ionized (Bld) [Mass/Vol] 3.8 mg/dL Low 4.5 - 5.3 mg/dL [facility] Ionized magnesiumon 10-13-19 Magnesium Ionized ISE (Bld) [Moles/Vol] 0.64 mmol/L 0.45 - 0.74 mmol/L [facility] Comment on above: NEW REFERENCE RANGE Magnesium Ionized ISE (Bld) [Moles/Vol] 0.24 mmol/L Critically low 0.45 - 0.74 mmol/L [facility] Comment on above: NEW REFERENCE RANGE MAGNESIUMon 10-13-2023 Magnesium [Mass/Vol] 1.1 mg/dL Low 1.8-2.6 [facility] Comment on above: Performed By: #### P INR, 22818-5, 718-7, PLTCT, BMP, 95427-3 #### [facility] ([id number]) [address] [facility] [address] [place] [address] Magnesiumon 10-13-2023 Magnesium [Mass/Vol] 1.1 mg/dL Low 1.8 - 2.6 mg/dL [facility] Magnesium Ionized ISE (Bld) [Moles/Vol]on 10-13-2023 Magnesium [Moles/Vol] 0.64 mmol/L Normal 0.45-0.74 [facility] Comment on above: Result Comment: NEW REFERENCE RANGE Performed By: #### P INR, 80627-2, 718-7, PLTCT, BMP, 58221-1 #### [facility] ([id number]) [address], [address] [place] [address] Magnesium [Moles/Vol] 0.24 mmol/L Critically low 0.45-0.74 [facility] Comment on above: Result Comment: NEW REFERENCE RANGE Performed By: #### 3 8230-9, 49897-9 #### [facility] ([id number]) [address] [facility] [facility] [facility] [place] [address] Magnesium [Mass/Vol]on 10-12 Interpretation and review of laboratory results Abnormal [facility] Natriuretic peptide B [Mass/ Vol]on 10-13-2023 Natriuretic peptide B (Bld) [Mass/Vol] 1101 pg/mL High <100.0 [facility] Comment on above: Performed By: #### P INR, 77316-5, 718-7, PLTCT, BMP, 01951-3 #### [facility] ([id number]) [address] [facility] [facility] [facility] [place] [address] Interpretation and review of laboratory results Abnormal [facility] Natriuretic peptide B (Bld) [Mass/Vol] 1101 pg/mL High NINF - 100.0 pg/mL [facility] No Panel Informationon 10-12 [facility] Interpretation and review of laboratory results Abnormal [facility] Interpretation and review of laboratory results Abnormal [facility] Interpretation and review of laboratory results Abnormal [facility] PLATELET COUNT AND MPVon Platelet mean volume (Bld) [Entitic vol] 8.8 fL Normal 7-12 [facility] Comment on above: Performed By: #### P INR, 74810-8, 718-7, PLTCT, BMP, 09528-6 #### [facility] ([id number]) [address], [address] [place] [address] Platelets (Bld) [#/Vol] 158 10*3/uL Normal 150-450 [facility] Comment on above: Performed By: #### P INR, 68393-6, 718-7, PLTCT, BMP, 86971-1 #### [facility] ([id number]) [address], [address] [place] [address] POTASSIUMon 10-13-2023 Potassium [Moles/Vol] 4.5 mmol/L Normal 3.5-5.0 [facility] Comment on above: Performed By: #### P INR, 28991-8, 718-7, PLTCT, BMP, 36683-4 #### [facility] ([id number]) [address], [facility] [address] [place] [address] Potassium [Moles/Vol] 3.1 mmol/L Low 3.5-5.0 [facility] Comment on above: Performed By: #### P INR, 62858-1, 718-7, PLTCT, BMP, 68076-4 #### [facility] ([id number]) [address], [address] [place] [address] PROTIME AND INRon 10-13-2023 INR Coag (PPP) [Relative time] 1.4 {INR} High 0.8-1.1 [facility] Comment on above: Performed By: #### P INR, 28198-7, 718-7, PLTCT, BMP, 10463-8 #### [facility] ([id number]) [address] [address] [place] [address] PT Coag (PPP) [Time] 16.6 s High 9.8-13.2 [facility] Comment on above: Performed By: #### P INR, 09730-3, 718-7, PLTCT, BMP, 22240-7 #### [facility] ([id number]) [address], [address] [place] [address] Platelet counton 10-13-2023 Platelet mean volume (Bld) [Entitic vol] 8.8 fL 7 - 12 fL [facility] Platelets (Bld) [#/Vol] 158 10*3/uL [facility] Potassiumon 10-13-2023 Potassium [Moles/Vol] 4.5 mmol/L 3.5 - 5.0 mmol/L [facility] Potassium [Moles/Vol] 3.1 mmol/L Low 3.5 - 5.0 mmol/L [facility] Potassium [Moles/Vol]on [facility] Interpretation and review of laboratory results Abnormal [facility] Protime & INRon 10-13-2023 INR Coag (PPP) [Relative time] 1.4 {INR} High [facility] PT Coag (PPP) [Time] 16.6 s High [facility] THYROID PROFILEon 10-13-2023 Free T4 [Mass/Vol] 1.15 ng/dL Normal 0.61-1.60 [facility] Comment on above: Performed By: #### P INR, 45655-8, 718-7, PLTCT, BMP, 50716-3 #### [facility] ([id number]) [address], [address] [place] [address] TSH 1.80 uIU/mL Normal 0.49-4.67 [facility] Comment on above: Performed By: #### P INR, 41587-2, 718-7, PLTCT, BMP, 40764-6 #### [facility] ([id number]) [address], [address] [place] [address] TROPONIN Ion 10-13-2023 Troponin I.cardiac [Mass/Vol] 9.76 ng/mL Critically high 0.00-0.04 [facility] Comment on above: Result Comment: Concentrations greater than or equal to 0.05 ng/ml are considered elevated. Elevations of Troponin may be due to causes other than myocardial ischemia. Recommend serial Troponin testing be performed. Performed By: #### P INR, 33404-6, 718-7, PLTCT, BMP, 13242-9 #### [facility] ([id number]) [address] [facility] [facility] [place] [address] Troponin I.cardiac [Mass/Vol] 13.09 ng/mL Critically high 0.00-0.04 [facility] Comment on above: Result Comment: Concentrations greater than or equal to 0.05 ng/ml are considered elevated. Elevations of Troponin may be due to causes other than myocardial ischemia. Recommend serial Troponin testing be performed. Performed By: #### P INR, 88992-8, 718-7, PLTCT, BMP, 33919-2 #### [facility] ([id number]) [facility] [address] [facility] [place] [address] Troponin I.cardiac [Mass/Vol] 13.88 ng/mL Critically high 0.00-0.04 [facility] Comment on above: Result Comment: Concentrations greater than or equal to 0.05 ng/ml are considered elevated. Elevations of Troponin may be due to causes other than myocardial ischemia. Recommend serial Troponin testing be performed. Performed By: #### P INR, 74736-4, 718-7, PLTCT, BMP, 49696-7 #### [facility] ([id number]) [address] [facility] [facility] [place] [address] Thyroid profile includes TSH FT4on 10-13-2023 Free T4 [Mass/Vol] 1.15 ng/dL 0.61 - 1. 60 ng/dL [facility] TSH Qn 1.80 m[IU]/L [facility] Troponin Ion 10-13-2023 Troponin I.cardiac [Mass/Vol] 9.76 ng/mL Critically high 0.00 - 0.04 ng/mL [facility] Comment on above: Concentrations greater than or equal to 0.05 ng/ml are considered elevated. Elevations of Troponin may be due to causes other than myocardial ischemia. Recommend serial Troponin testing be performed. Troponin I.cardiac [Mass/Vol] 13.09 ng/mL Critically high 0.00 - 0.04 ng/mL [facility] Comment on above: Concentrations greater than or equal to 0.05 ng/ml are considered elevated. Elevations of Troponin may be due to causes other than myocardial ischemia. Recommend serial Troponin testing be performed. Troponin I.cardiac [Mass/Vol] 13.88 ng/mL Critically high 0.00 - 0.04 ng/mL [facility] Comment on above: Concentrations greater than or equal to 0.05 ng/ml are considered elevated. Elevations of Troponin may be due to causes other than myocardial ischemia. Recommend serial Troponin testing be performed. Troponin I.cardiac [Mass/Vol ]on 10-13-2023 Interpretation and review of laboratory results Abnormal [facility] Interpretation and review of laboratory results Abnormal [facility] aPTT Coag (PPP) [Time]on aPTT Coag (Bld) [Time] 48 s High 26-37 [facility] Comment on above: Performed By: #### P INR, 79834-3, 718-7, PLTCT, BMP, 09608-0 #### [facility] ([id number]) [address] [facility] [facility] [place] [address] Glucose Glucometer (BldC) [M ass/Vol]on 10-12-2023 Glucose [Mass/Vol] 173 mg/dL High 65 - 99 mg/dL [facility] Interpretation and review of laboratory results Abnormal [facility] Carotid arteries - bilate ralon 10-06-2023 Previous: [...] previous report no significant changes were noted. [facility] Radiology Study observation (narrative) [facility] US Carotid arteries - bilate ralOrdered By: Sal Morris on 10-06-2023 [facility] [employer] Work Phone: Blood Urea Nitrogenon 2023 Urea nitrogen [Mass/Vol] 24 mg/dL Normal 02-04 [facility] Comment on above: Performed By: #### B UN, CREAT #### [facility] [address] Creatinineon 08-06-2023 Creatinine [Mass/Vol] 1.07 mg/dL Normal 0.60-1.20 [facility] Comment on above: Performed By: #### B UN, CREAT #### [facility] [address] Creatinine Clr Calc Pharmacy 43.30 Normal [facility] Comment on above: Result Comment: PERF ORMED BY: [place] [address] PATHOLOGIST RECTANGULAR TANK COOPER LAURE BRANHAM M.D. Performed By: #### B UN, CREAT #### [address] GFR/1.73 sq M.predicted MDRD (S/P/Bld) [Vol rate/Area] 56.229 mL/min/{1.73_m2} Normal [facility] Comment on above: Performed By: #### B UN, CREAT #### [facility] [address] BNPon 10-15-2022 Natriuretic peptide B (Bld) [Mass/Vol] 732.0 pg/mL Normal <=900.0 [facility] [place] [facility] Comment on above: Performed By: #### C CONNER, ELEC, BNP, BUN, TSH #### [facility] [address] [address] [address] Feliz Hilton BUNon 10-15-2022 Urea nitrogen [Mass/Vol] 31.0 mg/dL Critically high 7.0-18.0 [facility] [place] [facility] Comment on above: Performed By: #### C CONNER, ELEC, BNP, BUN, TSH #### [facility] [address] [address] [address] Feliz Hilton CBC AUTO DIFFon 10-15-2022 BASO # 0.0 103/ul Normal 0.0-0.1 [facility] [place] [facility] Comment on above: Performed By: #### C BC ####[facility] [address] [address]Dr[address] Yilan Hilton Basophils/100 WBC (Bld) 0.8 % Normal 0.2-2.0 [facility] Comment on above: Performed By: #### C BC ####[facility] [address] [place], [place] [address]Dr. Feliz Hilton EO # 0.1 103/ul Normal 0.0-0.7 [facility] Comment on above: Performed By: #### C BC ####[facility] [address] [place], [place] [address]Dr. Feliz Hilton Eosinophils/100 WBC (Bld) 2.3 % Normal 0.9-7.0 [facility] Comment on above: Performed By: #### C BC ####[facility] [address] [place], [place] [address]Dr. Feliz Hilton Erythrocyte distribution width (RBC) [Ratio] 19.8 % Critically high 11.0-15.0 [facility] Comment on above: Performed By: #### C BC ####[facility] [address] [place], [place] [address]Dr. Feliz Hilton Hematocrit (Bld) [Volume fraction] 36.1 % Normal 36.0-48.0 [facility] Comment on above: Performed By: #### C BC ####[facility] [address] [place], [place] [address]Dr. Feliz Hilton Hemoglobin (Bld) [Mass/Vol] 11.1 g/dL Critically low 12.0-16.0 [facility] Comment on above: Performed By: #### C BC ####[facility] [address] [place], [place] [address]Dr. Feliz Hilton IG # 0.01 10e3/ul Normal 0.00-0.03 [facility] Comment on above: Performed By: #### C BC ####[facility] [address] [place], [place] [address]Dr. Feliz Hilton IG % 0.2 % Normal 0.0-0.5 [facility] Comment on above: Performed By: #### C BC ####[facility] [address] [place], [place] [address]Dr. Feliz Hilton LYMPH # 2.1 103/ul Normal 1.2-3.8 [facility] Comment on above: Performed By: #### C BC ####[facility] [address] [address]Dr. Feliz Hilton Lymphocytes/100 WBC (Bld) 43.1 % Normal 20.5-60.0 [facility] Comment on above: Performed By: #### C BC ####[facility] [address] [address]Dr. Feliz Hilton MANUAL DIFF REQ NO Normal [facility] Comment on above: Performed By: #### C BC ####[facility] [address] [address]Dr. Feliz Hilton MCH (RBC) [Entitic mass] 28.7 pg Normal 26.7-34.0 [facility] Comment on above: Performed By: #### C BC ####[facility] [address] [address]Dr. Feliz Yobani MCHC (RBC) [Mass/Vol] 30.7 g/dL Normal 29.9-35.2 [facility] Comment on above: Performed By: #### C BC ####[facility] [address] [place], [place] [address]Dr. Feliz Hilton MCV (RBC) [Entitic vol] 93.3 fL Normal 81.0-99.0 [facility] Comment on above: Performed By: #### C BC ####[facility] [address] [address]Dr. Feliz Hilton MONO # 0.4 103/ul Normal 0.3-0.8 [facility] Comment on above: Performed By: #### C BC ####[facility] [address] [place], [place] [address]Dr. Feliz Hilton Monocytes/100 WBC (Bld) 9.0 % Normal 1.7-12.0 [facility] Comment on above: Performed By: #### C BC ####[facility] [address] [place], [place] [address]Dr. Feliz Hilton NEUT # 2.1 103/ul Normal 1.4-6.5 [facility] Comment on above: Performed By: #### C BC ####[facility] [address] [address]Dr. Feliz Hilton Neutrophils/100 WBC (Bld) 44.6 % Normal 43.0-75.0 [facility] Comment on above: Performed By: #### C BC ####[facility] [address] [address]Dr. Feliz Hilton Platelet mean volume (Bld) [Entitic vol] 9.5 fL Normal 9.5-13.5 [facility] Comment on above: Performed By: #### C BC ####[facility] [address] [address]Dr. Feliz Yobani PLT 273 103/ul Normal 150-450 [facility] Comment on above: Performed By: #### C BC ####[facility] [address] [address]Dr. Mónicaaureliano Yobani RBC 3.87 106/ul Critically low 4.20-5.40 [facility] Comment on above: Performed By: #### C BC ####[facility] [address] [address]Dr. Feliz Yobani WBC 4.8 103/ul Normal 4.0-11.0 [facility] Comment on above: Performed By: #### C BC ####[facility] [address] [place] [address]DrJuan F Hilton CREATININEon 10-15-2022 Creatinine [Mass/Vol] 1.02 mg/dL Normal 0.55-1.02 [facility] Comment on above: Performed By: #### C CONNER, ELEC, BNP, BUN, TSH #### [facility] [address] [address] [address] Feliz Hilton EGFR-AF PERUVIAN >60 Normal >=60 [facility] Comment on above: Performed By: #### C CONNER, ELEC, BNP, BUN, TSH #### [facility] [address] [address] [address] Feliz Hilton EGFR-NON AF PERUVIAN 54 mL/min/1.73m2 Critically low >=60 [facility] Comment on above: Performed By: #### C CONNER, ELEC, BNP, BUN, TSH #### [facility] [address] [place] [address] Dr. Feliz Hilton ELECTROLYTESon 10-15-2022 Anion gap [Moles/Vol] 14.7 mmol/L Normal [facility] Comment on above: Performed By: #### C CONNER, ELEC, BNP, BUN, TSH #### [facility] [address] [address] [address] Feliz Hilton Chloride [Moles/Vol] 109 mmol/L Critically high 98-107 [facility] Comment on above: Performed By: #### C CONNER, ELEC, BNP, BUN, TSH #### [facility] [address] [place] [address] Dr. Feliz Hilton CO2 [Moles/Vol] 20.6 mmol/L Critically low 21.0-32.0 [facility] Comment on above: Performed By: #### C CONNER, ELEC, BNP, BUN, TSH #### [facility] [address] [place] [address] Dr. Feliz Hilton Potassium [Moles/Vol] 5.3 mmol/L Critically high 3.5-5.1 [facility] Comment on above: Performed By: #### C CONNER, ELEC, BNP, BUN, TSH #### [facility] [address] [place] [address] Dr. Feliz Hilton Sodium [Moles/Vol] 139 mmol/L Normal 136-145 [facility] Comment on above: Performed By: #### C CONNER, ELEC, BNP, BUN, TSH #### [facility] [address] [place] [address] Dr. Feliz Hilton TSHon 10-15-2022 TSH 3.265 uIU/mL Normal 0.358-3.740 [facility] Comment on above: Performed By: #### C CONNER, ELEC, BNP, BUN, TSH #### [facility] [address] [address] [address] Feliz Hilton BNPon 07-16-2022 Natriuretic peptide B (Bld) [Mass/Vol] 1093.0 pg/mL Critically high <=900.0 [facility] Comment on above: Performed By: #### T SH, LIPID, ELEC, LIVER, CREA, BUN, BNP ####[facility] [address] [place] [address]Dr. Feliz Hilton BUNon 07-16-2022 Urea nitrogen [Mass/Vol] 23.0 mg/dL Critically high 7.0-18.0 [facility] Comment on above: Performed By: #### T SH, LIPID, ELEC, LIVER, CREA, BUN, BNP ####[facility] [address] [place] [address]Dr. Feliz Hilton CBC AUTO DIFFon 07-16-2022 BASO # 0.1 103/ul Normal 0.0-0.1 [facility] Comment on above: Performed By: #### C BC #### [facility] [address] [address] [address] Feliz Hilton Basophils/100 WBC (Bld) 1.3 % Normal 0.2-2.0 [facility] Comment on above: Performed By: #### C BC #### [facility] [address] [place] [address] Dr. Feliz Hilton EO # 0.3 103/ul Normal 0.0-0.7 [facility] Comment on above: Performed By: #### C BC #### [facility] [address] [place] [address] Dr. Feliz Hilton Eosinophils/100 WBC (Bld) 7.2 % Critically high 0.9-7.0 [facility] Comment on above: Performed By: #### C BC #### [facility] [address] [place] [address] Dr. Feliz Hilton Erythrocyte distribution width (RBC) [Ratio] 23.4 % Critically high 11.0-15.0 [facility] Comment on above: Performed By: #### C BC #### [facility] [address] [place] [address] Dr. Feliz Hilton Hematocrit (Bld) [Volume fraction] 30.8 % Critically low 36.0-48.0 [facility] Comment on above: Performed By: #### C BC #### [facility] [address] [place] [address] Dr. Feliz Hilton Hemoglobin (Bld) [Mass/Vol] 9.1 g/dL Critically low 12.0-16.0 [facility] Comment on above: Performed By: #### C BC #### [facility] [address] [place] [address] Dr. Feliz Hilton IG # 0.01 10e3/ul Normal 0.00-0.03 [facility] Comment on above: Performed By: #### C BC #### [facility] [address] [place] [address] Dr. Feliz Hilton IG % 0.3 % Normal 0.0-0.5 [facility] Comment on above: Performed By: #### C BC #### [facility] [address] [place] [address] Dr. Feliz Hilton LYMPH # 1.5 103/ul Normal 1.2-3.8 [facility] Comment on above: Performed By: #### C BC #### [facility] [address] [place] [address] Dr. Feliz Hilton Lymphocytes/100 WBC (Bld) 37.3 % Normal 20.5-60.0 [facility] Comment on above: Performed By: #### C BC #### [facility] [address] [place] [address] Dr. Feliz Hilton MANUAL DIFF REQ NO Normal [facility] Comment on above: Performed By: #### C BC #### [facility] [address] [place] [address] Dr. Feliz Hilton MCH (RBC) [Entitic mass] 23.9 pg Critically low 26.7-34.0 [facility] Comment on above: Performed By: #### C BC #### [facility] [address] [place] [address] Dr. Feliz Hilton MCHC (RBC) [Mass/Vol] 29.5 g/dL Critically low 29.9-35.2 [facility] Comment on above: Performed By: #### C BC #### [facility] [address] [place] [address] Dr. Feliz Hilton MCV (RBC) [Entitic vol] 81.1 fL Normal 81.0-99.0 [facility] Comment on above: Performed By: #### C BC #### [facility] [address] [place] [address] Dr. Feliz Hilton MONO # 0.4 103/ul Normal 0.3-0.8 [facility] Comment on above: Performed By: #### C BC #### [facility] [address] [place] [address] Dr. Feliz Hilton Monocytes/100 WBC (Bld) 10.3 % Normal 1.7-12.0 [facility] Comment on above: Performed By: #### C BC #### [facility] [address] [place] [address] Dr. Feliz Hilton NEUT # 1.7 103/ul Normal 1.4-6.5 [facility] Comment on above: Performed By: #### C BC #### [facility] [address] [place] [address] Dr. Feliz Hilton Neutrophils/100 WBC (Bld) 43.6 % Normal 43.0-75.0 [facility] Comment on above: Performed By: #### C BC #### [facility] [address] [place] [address] Dr. Feliz Hilton Platelet mean volume (Bld) [Entitic vol] 9.0 fL Critically low 9.5-13.5 [facility] Comment on above: Performed By: #### C BC #### [facility] [address] [place] [address] Dr. Feilz Hilton PLT 285 103/ul Normal 150-450 [facility] Comment on above: Performed By: #### C BC #### [facility] [address] [place] [address] Dr. Feliz Hilton RBC 3.80 106/ul Critically low 4.20-5.40 [facility] Comment on above: Performed By: #### C BC #### [facility] [address] [address] [address] Feliz Hilton WBC 3.9 103/ul Critically low 4.0-11.0 [facility] Comment on above: Performed By: #### C BC #### [facility] [address] [address] [address] Feliz Hilton CREATININEon 07-16-2022 Creatinine [Mass/Vol] 0.87 mg/dL Normal 0.55-1.02 [facility] Comment on above: Performed By: #### T SH, LIPID, ELEC, LIVER, CREA, BUN, BNP ####[facility] [address] [place] [address]Dr. Feliz Hilton EGFR-AF PERUVIAN >60 Normal >=60 [facility] Comment on above: Performed By: #### T SH, LIPID, ELEC, LIVER, CREA, BUN, BNP ####[facility] [address] [place] [address]DrJuan F Hilton EGFR-NON AF PERUVIAN >60 Normal >=60 [facility] Comment on above: Performed By: #### T SH, LIPID, ELEC, LIVER, CREA, BUN, BNP ####[facility] [address] [place] [address]Dr. Feliz Hilton D-DIMERon 07-16-2022 D-DIMER 0.89 mg/L FEU Critically high <=0.59 [facility] Comment on above: Performed By: #### D DIM #### [facility] [address] [address] [address] Feliz Hilton D-DIMER COMMENTS SEE BELOW Normal [facility] Comment on above: Result Comment: Incr eases [...] Performed By: #### D DIM #### [facility] [address] [address] [address] Feliz Hilton ELECTROLYTESon 07-16-2022 Anion gap [Moles/Vol] 13.9 mmol/L Normal [facility] Comment on above: Performed By: #### T SH, LIPID, ELEC, LIVER, CREA, BUN, BNP ####[facility] [address] [place] [address]Dr. Feliz Hilton Chloride [Moles/Vol] 111 mmol/L Critically high 98-107 [facility] Comment on above: Performed By: #### T SH, LIPID, ELEC, LIVER, CREA, BUN, BNP ####[facility] [address] [place] [address]Dr. Feliz Hilton CO2 [Moles/Vol] 21.4 mmol/L Normal 21.0-32.0 [facility] Comment on above: Performed By: #### T SH, LIPID, ELEC, LIVER, CREA, BUN, BNP ####[facility] [address] [place] [address]Dr. Feliz Hilton Potassium [Moles/Vol] 4.3 mmol/L Normal 3.5-5.1 [facility] Comment on above: Performed By: #### T SH, LIPID, ELEC, LIVER, CREA, BUN, BNP ####[facility] [address] [place] [address]Dr. Feliz Hilton Sodium [Moles/Vol] 142 mmol/L Normal 136-145 [facility] Comment on above: Performed By: #### T SH, LIPID, ELEC, LIVER, CREA, BUN, BNP ####[facility] [address] [place] [address]Dr. Feliz Hilton GLYCOHEMOGLOBIN A1Con 2022 ADA RECOMMENDATION SEE BELOW Normal [facility] Comment on above: Result Comment: ADA RECOMMENDED LIMIT 4.0 - 6.0 ADA THERAPEUTIC TARGET < 7.0 ACTION SUGGESTED > 7.0 Performed By: #### A 1C ####[facility] [address] [place], [place] [address]YdDr. Feliz Hilton Glucose [Mass/Vol] 120 mg/dL Normal [facility] Comment on above: Performed By: #### A 1C ####[facility] [address] [place], [place] [address]UhDr. Feliz Hilton HbA1c (Bld) [Mass fraction] 5.8 % Normal 4.5-6.2 [facility] Comment on above: Performed By: #### A 1C ####[facility] [address] [place] [address]Dr. Feliz Hilton LIPID PROFILEon 07-16-2022 CHOL-HDL RATIO NORM SEE BELOW Normal [facility] Comment on above: Result Comment: 3.3 - 4.4 LOW RISK 4.4 - 7.1 AVERAGE RISK 7.1 - 11.0 MODERATE RISK >11.0 HIGH RISK Performed By: #### T SH, LIPID, ELEC, LIVER, CREA, BUN, BNP #### [facility] [address] [address] [address] Feliz Hilton Cholesterol [Mass/Vol] 107 mg/dL Normal <=200 [facility] Comment on above: Performed By: #### T SH, LIPID, ELEC, LIVER, CREA, BUN, BNP #### [facility] [address] [address] [address] Feliz Hilton Cholesterol in HDL [Mass/Vol] 52 mg/dL Normal 40-60 [facility] Comment on above: Performed By: #### T SH, LIPID, ELEC, LIVER, CREA, BUN, BNP #### [facility] [address] [address] [address] Feliz Hilton Cholesterol in LDL [Mass/Vol] 30.2 mg/dL Normal [facility] Comment on above: Performed By: #### T SH, LIPID, ELEC, LIVER, CREA, BUN, BNP #### [facility] [address] [address] [address] Feliz Hilton Cholesterol.total/ Cholesterol in HDL [Mass ratio] 2.1 {ratio} Normal [facility] Comment on above: Performed By: #### T SH, LIPID, ELEC, LIVER, CREA, BUN, BNP #### [facility] [address] [address] [address] Feliz Hilton HDL NORMAL > or = 60 mg/dl - LO W CARDIOVASCULAR RISK <40 mg/dl - HIGH CARDIOVASCULAR RISK Normal [facility] Comment on above: Performed By: #### T SH, LIPID, ELEC, LIVER, CREA, BUN, BNP #### [facility] [address] [place] [address] Dr. Feliz Hilton LDL CALC NORMAL SEE BELOW Normal [facility] Comment on above: Result Comment: <100 mg/dl OPTIMAL 100 - 129 mg/dl NEAR OR ABOVE OPTIMAL 130 - 159 mg/dl BORDERLINE HIGH 160 - 189 mg/dl HIGH >190 mg/dl VERY HIGH Performed By: #### T SH, LIPID, ELEC, LIVER, CREA, BUN, BNP #### [facility] [address] [place] [address] Dr. Feliz Hilton Triglyceride [Mass/Vol] 124 mg/dL Normal <=150 [facility] Comment on above: Performed By: #### T SH, LIPID, ELEC, LIVER, CREA, BUN, BNP #### [facility] [address] [place] [address] Dr. Feliz Hilton VLDL CALC 24.8 mg/dL Normal [facility] Comment on above: Performed By: #### T SH, LIPID, ELEC, LIVER, CREA, BUN, BNP #### [facility] [address] [place] [address] Dr. Feliz Hilton LIVER PROFILEon 07-16-2022 Albumin [Mass/Vol] 2.6 g/dL Critically low 3.4-5.0 Th [facility] Comment on above: Performed By: #### T SH, LIPID, ELEC, LIVER, CREA, BUN, BNP #### [facility] [address] [place] [address] Dr. Feliz Hilton Albumin/Globulin [Mass ratio] 0.8 {ratio} Normal [facility] Comment on above: Performed By: #### T SH, LIPID, ELEC, LIVER, CREA, BUN, BNP #### [facility] [address] [place] [address] Dr. Feliz Hilton ALP [Catalytic activity/Vol] 63 U/L Normal 46-116 [facility] Comment on above: Performed By: #### T SH, LIPID, ELEC, LIVER, CREA, BUN, BNP #### [facility] [address] [place] [address] Dr. Feliz Hilton ALT [Catalytic activity/Vol] 18 U/L Normal 14-59 [facility] Comment on above: Performed By: #### T SH, LIPID, ELEC, LIVER, CREA, BUN, BNP #### [facility] [address] [place] [address] Dr. Feliz Hilton AST [Catalytic activity/Vol] 23 U/L Normal 15-37 [facility] Comment on above: Performed By: #### T SH, LIPID, ELEC, LIVER, CREA, BUN, BNP #### [facility] [address] [place] [address] Dr. Feliz Hilton BILI, CONJUGATED 0.1 mg/dL Normal 0.0-0.2 [facility] Comment on above: Performed By: #### T SH, LIPID, ELEC, LIVER, CREA, BUN, BNP #### [facility] [address] [place] [address] Dr. Feliz Hilton Bilirubin [Mass/Vol] 0.1 mg/dL Critically low 0.2-1.0 [facility] Comment on above: Performed By: #### T SH, LIPID, ELEC, LIVER, CREA, BUN, BNP #### [facility] [address] [place] [address] Dr. Feliz Hilton Globulin (S) [Mass/Vol] 3.1 g/dL Normal [facility] Comment on above: Performed By: #### T SH, LIPID, ELEC, LIVER, CREA, BUN, BNP #### [facility] [address] [place] [address] Dr. Feliz Hilton Protein [Mass/Vol] 5.7 g/dL Critically low 6.4-8.2 Th [facility] Comment on above: Performed By: #### T SH, LIPID, ELEC, LIVER, CREA, BUN, BNP #### [facility] [address] [place], [place] [address] Dr. Feliz Hilton SED RATE WESTERGRENon 2022 SED RATE 14 mm/hr Normal <=30 [facility] Comment on above: Performed By: #### S EDR ####[facility] [address] [place] [address]Dr. Feliz Hilton TSHon 07-16-2022 TSH 5.167 uIU/mL Critically high 0.358-3.740 [facility] Comment on above: Performed By: #### T SH, LIPID, ELEC, LIVER, CREA, BUN, BNP ####[facility] [address] [place] [id number]. Feliz Hilton VITAMIN D 25 OHon 07-16-2022 VIT D 25-OH 22.4 ng/mL Normal [facility] Comment on above: Performed By: #### V ITAD ####[facility] [address] [place] [address]Dr. Feliz Hilton VIT D RANGES SEE BELOW Normal [facility] Comment on above: Result Comment: <20 ng/mL Vit D deficient 20 - <30 ng/mL Vit D insufficient 30 - 100 ng/mL Vit D sufficient >100 ng/mL Potential Toxicity Performed By: #### V ITAD ####[facility] [address] [place] [address]Dr. Feliz Hilton MG MAMM SCREEN 3D RELL CADon 06-14-2022 MG MAMM SCREEN 3D RELL CAD Patient: ASHVIN RENE Exam Date: 06/14/2022 : 1955 Gender:F Ordering : DR TUSHAR SOLANO D.O. Admission #: [id number] Family : Order #: [id number] CLICK HERE TO VIEW EXAM RADIOLOGY REPORT [...] No Treatments None Family Cancers None LOCATION: [facility] BREAST COMPOSITION: Scattered areas fibroglandular density. FINDINGS: [...] Post MD on 06/14/2022 at 14:19 Normal [facility] XR hand RT min 3V*on 022 XR hand RT min 3V* [facility] [employer] Other XR hand RT min 3V* [facility] [employer] Other XR hand RT min 3V* [address] [place] [address] [employer] Other XR hand RT min 3V* [place] [address] [employer] Other XR hand RT min 3V* XRay Report [employer] Other XR hand RT min 3V* Signed [employer] Other XR hand RT min 3V* Patient: Annette Rene MR#: [id number] [employer] Other XR hand RT min 3V* 20 [employer] Other XR hand RT min 3V* : 1955 Acct:[id number] [employer] Other XR hand RT min 3V* Age/Sex: 66 / F ADM Date: 05/20/22 [employer] Other XR hand RT min 3V* Loc: XDUCLY Room: Ty pe: REG CLI [employer] Other XR hand RT min 3V* Attending Dr: Virginia FRANK [employer] Other XR hand RT min 3V* Copies to: ZAC Michaud [employer] Other XR hand RT min 3V* Ordering Provider: ZAC Perez [employer] Other XR hand RT min 3V* Date of Service: 05/20/22 [employer] Other XR hand RT min 3V* [id number]) XR/XR hand RT min 3V*: M79.641 [employer] Other XR hand RT min 3V* [address] film [employer] Other XR hand RT min 3V* COMPARISON:None N [employer] Other XR hand RT min 3V* HISTORY:Right hand injury. [employer] Other XR hand RT min 3V* No fracture, disloca tion or focal soft tissue abnormality seen. Degenerative changes and [employer] Other XR hand RT min 3V* atherosclerosis. [employer] Other XR hand RT min 3V* X R/XR hand RT min 3V* [employer] Other XR hand RT min 3V* IMPRESSION:No acute findings [employer] Other XR hand RT min 3V* Impression dictated by: Rodrick Galvin M.D.05/20/2022 11:13 AM [employer] Other XR hand RT min 3V* Dictation Location: [place] [address] [employer] Other XR hand RT min 3V* Transcribed By: HERNAN 05/20/22 1113 [place] [employer] Other XR hand RT min 3V* Dictated By: Amadou Galvin DO 05/20/22 1111 [facility] [employer] Other XR hand RT min 3V* Signed By: [employer] Other XR hand RT min 3V* 05/20/22 1113 [facility] [employer] Other Coding Summaryon 08-21-2021 Coding Summary [employer]Base 64 SxzbpppzPXs6zAc+PGhlYWQ+PE 4SDEOaX05jzPFvaD8BP2oCVU5V MMNPCVKYWP1TQI0hnJB4PYcgD0 VybiAv MrqoePJuXF35PSt3ZBU8oJfhNE nvdF4lxLYtN4v4CiDzOF12hC64 LUghCXMbVwE9RgKqdulpbYCx T9cuZlPrvXGxTug+PHRhYmxlIH ipPKDePGfeAOLzDlKuwFdxPD8i Pl5lLCFxSQNsxBdqkNXlImEe m5juXEZwCFlxXA8oaAzxV5FirH B4QKOoz2p4Mb58oTU+PHRkIHN0 rNbbXYact516VrNsf2nfARK0 qGSyJNawMRY5T30sk5W6SHHiJT DcYCP1hHF0hO0ucBowouexO0Lw kIWhUgB1EKP9sNWszH5jrMqm zombjP3jDib+J57SZY5HVNYQWI 8GNsd1W8VkWzvkmKJ+HW45AGTt LU55qWOezMMmz3miaBx4IeWu LIQuHFE0oYoyPWzrw6FlXBBuH6 6tgSUdt5C7SAGohPlsaLRgNqNy lJH8lV5iUAsbrnqpw0emrksq Egdzv1tibm46oY04Z09qEWigFK HmLXQ5RXQsZCIaySncfz7wgL8t Ii8+TBelx6jdx1smsRw2IxXo OHRgclWkeTprBDO0b3RxDx03J8 AdhKtkq3DdKyc1jl80lPHcr5J1 jMP0ICzyWHAqiH3wQCunLqO1 EGJhNeMupO45hSFlWZonLd4ekQ byhRztGE0hWUGjtqciSJKckD7x THIcjKWpiQgqZU0fVLSdnmxd a748DsMnSUY8SBUqlCEtF6DqvT 5rXkVuKJIiOJQkM0RzhAAiVXhc P948HQaqAfV9YMVoecTtA3Ul FHIrqUkkNnS7v0E6Rb0Un2Ytvu zvUTZ0XZvkDURhYiV9BlIoUrF2 Z8NuBdh0JUMpdNpeJA4zB2Eg OSWlollcxwreoRK6BOQlGLIeaU 64tBWgFLyaTn0ri3S9p517LNNy DFVntB15Gx7ziRfvMTFjyIAP eL0nssakg0ubymhdWsHbZKYuGZ z1IRa9LSWrtApqNuXsBJQ8PtN3 FUJ1aVVegD4vmVygmunklB1m Oyc+P69ljQ5zTGW3BJR8udljNS FubnWlDQ03DL97S1GaSepfbYUx bGU+ZOKqvgMoyLdvCD8bHcMu k2hiy7FgPShlT6OtPCMhXJnlNp z5DDVtABD3qXV1jE1iBPKqBUyi f7F5mNW8W8QcrvUjhr5ox1yu OBTsYLctF56ahYPay6Z3PQMkuY D9EGXywEjwZoCzxO46Rmd+PGNv mWqyh0WvHsggq4nri3ynwDr6 EdPiCIJzlvTyfYrbFSL5l3JwSe 98K75pDCxtUCUtXJFtQXJbOIEl fPxxwy7xiF4mHd7+PGNvbCB3 cIP7aD8eBTGbNxX9IHrgF708Lt JxrXGdUapkz9rue6agaNx4VaJc KEDakbBtmXiyNLU7l5FyDu56 Q73dHYqdVYHzQSYsVHDaYMRzaV dmod5xeR8kDp3+MT0vd2tddk89 qF04fPZ+HMOnHWR8dUdxXGyf STMehZ7zGToeNoB3QDSwFkThpW 59uSUaRCxuBl7ajBdbqKrkFN0t TJRwwqgen904OsYjj9gwNGWn eQXyVVbwPMO6T72cw2J2JLUnAQ RkEJX9sJW8yY0bjUmakcjcxTCk mSmagbJfhYtjQExuAPihD110 IHRvcDsnPlBhdGllbnQgTmFtZT x9M9UyHbh5UEUzvSamLY9rmHDo KBjcQv5joWczoKwoKJ0eHBKi vuzqt413RhPhc2zkPKFagWGtPX gzXNB8Q71wn5G3SSCuTNMmDCO8 kFJ1pY0ruOqhvcdfnIIqeZfg mdGwxCsjHGfhGEpuG824FRTizJ dkZlRcmbEvHTXxqEJ6SD03MZ20 iEXns1N9lUE1H0LtBHVcizyz pzgozKD9KVRiFMNlkG04Dd8mxO crGl1xLAJxQNL6INHibTFdE3Mi qP7rKtSkCQVuQLSwW3ObySQl JTykQ299NLhePwL3TDVgrpYfN0 IaUYBwrWuqMdG6p4J1Wn2RW3B2 CC72UT95kFPai8J0eTJ6E5Qt MDKhoobhhlptmYQ1HRQgJJJjgB 45Xc1nnDxuSd2jJVXdXID3VMFg rMCuQ5InxI4kTlEqALWnHESr Q9IgjJGmDSnjR621TUooRhG8QU XwhiTgS8AdXSNdeIqoOoC7b2O7 Ng8WXLl8NT64DZ31fEUlh2T8 iJN9D8CwQMEpyymwrbzabSL9MO DxXANwyA95Ho1qyKukUz6cECIs AGH0WWWkaHUqL1UnrL0aDjMi XOXmUEZhR5TvoQQpGXtjK326HF azPhJ1UNRjliEpR7UeJADyrUud EvO6g0N6Ga8VIFJyNO63CSZ0 rKI4RL52HB35A2VgMkcdzFAfdY U+PHRhYmxlIHdpZHRoPScxMDAl WlNbkNjoTK8tLh1bQMOuRXPi pTkckSDiUdWhs9znDPIpLUkgRQ 8zaSqjT4QxbUU3TTShx3j3Zl74 N22vN5FffMI+JQRqmMP1mLA0 wR5uZyIwReT7NLzcU761LsWhrZ HqQfyof1qco2vusWj8YfW1IORu drFkvIccKUP5h0SjZh06J67i IHdpZHRoPSIxNSUiIHZhbGlnbj 5zeT1rMg4+LNMenHX9vTN9rS8v OsRfYjZ3PCvzF316TaPkcBYu Hotlw3acz4ypmKe8PoQaSISvsc CxpPzhSIN5t7ZuNk40K1QqwOar x4MoYpu2as30kYPdv5M6lXF0 H6NaRKOwatmdvQMdcXorNU6wTK WlpzlbTOFtcA3vACUiT9x8BuSe SyY7OOygL8TwglC8KRNtxTTg CKzdUGX7Z99xp1R4XCIyTDYfIO R9gPH9aE8joDxpivwmxLJgpVzh ncGqnTarXPpnBPtuW206MVJp rKksQIRblW8rHSPtvEUnlWfaDI 9pEJDzyedtFamNKq5OSgmwO9JN BN8wXZgcxVJ+ZPDtUIM3lLep KHvbTTEqdY2kBOBeY2q2LhKgNl T6HVubA7XoQZAedwqzYi05cF3i PsWjUtG5VOpnM2NqujY9XGSh lCOqXGxyGEW3N89kt4X2OPTxOO SdHMW3rYF8hR1kzLicojmtfGKy tIozxbQkaNfpCApnFXwwG569 ALXiaZitByR8GxI7ZjR1TMD5M5 WtLfg7HIGqnKufWW2iyKDcHTbq Nw0ueNtfaMyaHH3lHMWxemob SPVslO0xEIZcnJWgjBacFJ5jEQ Olbhuaf497TiOfJBG3DJZpwSLn A9IidP8rPeXoGFOxKEJpO6Lm xCWxUNpzA539WDncSsZ9ILNfti QkP4GmIETyrQnxOkZ1i5D2Vr59 NyBZZWFyczwvdGQ+PHRkIHN0 oFdwMMwfABApeI1jEZTqU1n7Uo EaTzC9PLfpT3LkMDTojjpfMo95 nA1nMcRiYoH3WYaxL6LbssH6 NCHhrKEnDZijFZU9Z93yq5N9AN QmTVWmWGL2tAR3cJ1pjVgtlxfl bGVmdDsgdmVydGljYWwtYWxp O478MZAilUdfDqPOSIVPHBkvfW Q+QCNiHRM2lWlrASamRQTzyS0k YEIiW2e7FrSvYsY1IKnnE1Mo GFJieitmMs86dU6sRjJnKhD7SG yaW1BnqlJ2TAPqpOTjOIopHTH7 F93vn8Q1GJUxJCYjSQS5gRO3 eA0hyEdqlmeiaVNhdWjjnyLdqK rmSQnxZQivU735CYSrgFltJb2m t2TqngE5wB1oIH13SO32U3Ez PjwvdGFibGU+PHRhYmxlIHdpZH SzUCphZHRhUfGltNmvDL7xQc4t WTAqGYFneZoucNGzKzLda0fn RQHhHRpxFA0rsTgjB7SeyFM5RE Fvp0p7Sp68X56aW5LitNF+PGNv yDH2tHP1oK9kLxTwQdV0VNoc V498QhQiwLJyVabht7wjc1hpkT g9VxXiWLXlwlJtqCzfVDW5r3Hm Gi98Q98mMCahRXSwMBWxLUXh OPWcuJuczy9vkZ4eFa0+PGNvbC I1kEV2bP5pIsHkLnG1VOlgQ549 ClXakHFiQtdkL39uI8IdlES+ OATiVbx4HKBjqBvfWS8nrJFiDO kkIz4pNQN1DjRzIfZdRYlwM9Yu BUKokjkdznpgyAO1MILrDULg nP98Wk0ieAroXc5qEUIvOCM8KS GfsKQvI0XuoG8tTpIaUKGoCBKt H9ZxeDXnAHgdI919RAurEfJ9 LKVnaxBnG8DdIKItfVaoKtV7j6 E2Qi3EoYdxtAWbVS9dJsZsKZh0 Y4OaEwv7ASDkdBtmRB0loJJj PWdcZk1ouRwsuOcmZQ1gOMZcfd hyc187AzJia2bzKHJqrCArOTqh HXP5W64mc4X3ROLqOPMuQHU4 aGG0gZ2jxUfyqomwgTKooGoxjn RwlMkzWWjcUSoiD470ZMWvfMgn BdCSWij5Z2ZuEjo0ABXfmKof PF6tlYGzDRjlWi7jkJezaHdgHW 8xDZLourbgr680NjYzd5wdDTZx gQDgCJfoDDL4S89hu1Y0PVHd TTFbZGE3tUW9zZ7bjMfeffwmpF CpdOdpznTlzTsnDTxjSGaaT341 IZWqoEgoVx8JJjg1J9DlGxg7 VKZjvCgkBQ3hlJRfHVaoTe4npF ckyJkqYX0jBCGpitxjg680KmCx r3dqNXMznMZtQExfGTN3J83h v5Z0IYNkYPHpCBZ5wTM2iM3oqW lnbjogbGVmdDsgdmVydGljYWwt MYvaX224UQOpoDbpPbVazURq OjwvdGQ+KS45nf69K9PsRbxlOw l2YQQsDPL2dEB5pG8eLEOlVIhx o7F0uFI4N6CizwIcfn3uf2tm YXB (more content not included)... [facility] Coding Summaryon 08-20-2021 Coding Summary HTMLBase 64 PdugbpqzUIj0wTm+PGhlYWQ+PE 9LUKToX26jgZPaoL3FL8sEVW0E YYNWYDVIUC7ARE5ijCM7GAgsB3 VybiAv BgaqwIUgTW76QRp7YYY0qVmfEQ ewhH4lgUFqS7h4GfUnDF31rZ47 PSifRLUtDyX7MlUjluhaoDOs F4ivIgVzdNNzMmq+PHRhYmxlIH htUNTaQEyuZKZkLkFcoIuuNR1z Wb6eVGKjGGXquLcgrJEfPwQn w0tuXRXrHOtyHY5llMvwW3QcmK V1WPPpx9e6Rn41nUH+PHRkIHN0 jPjeRMxxn361PsCyd6ezJYX1 qJDoLUykNHY4Q02fd6B9JOElNE WlCVX7kMD6fV7ueXrinmlfD1He lFNfHtA0DIO1aMFolN3mrGrh ohnljJ0yIib+S89SPA3QKJBFGG 8XOyz6P3VeRexkcWD+PO90MHDj ZT58eHVcwKUdk6vydYi9SxBd DZMjAYE0xRmlAXfzp8FbTIIyS2 8psZRhu3M4DKBpnKvfkHGrDwGm nNL9oZ6rDQpcaxylu8oclntf Urhxl3twaf32cK57C22zTGmzKC HeTEW7VRZlIYTvwYnxvo5uwC9l Ii8+AUlst4hvc1auwAv1PfVe XQOtmyQedNviTOL8f1YqSt73U7 TlgLzre6VzKpa6rf38dUAst3Y7 rGA7FWyfVNLilQ8fINujCfM3 IDBbNyBsuY16hNTsTOaqMb1cyH awlLbmAB5nQIKfvhjeLWZpdX8z IVZjhOBjwEidST3oMQKryhmd y107PjNrBNK2IFSjnJAwK4GcoZ 1uYeJtBLIvPWVnF8DquCJzKFui Q155GKfjFyF1LBCtvjTdR2Vq AEEsgAavUaX3n5U9Ul4Yr7Kpdu wvOUV9ICxdRNIbBoQ0HvKnRzF4 K0DcBfw4BVBgvWwnVC1fG8Jy VYIzhgtrvnpuaBQ4EYPcAZMfiU 14aFDfBSblJb8be2C6h924PSAm CLTuwN24Lp4ttRijVMFitQBD gA7fzwvdf0rjgddcWiEeMCCuVL p6FEi8AIBwyRkkSaTfPWR8DkV4 JPW4pEGrdE0ayEfatujahJ1a Oyc+C07xeB7mWSC2DUH5qvmbJK NbmlJuAP63WR23V8ZtVdufeLEd bGU+DUWhucOmiXxgBP9iZwZp c3btc5CbBNqnT7PaSFTkZKppTw n9XVNeFBH4kEY7hL3oSPNxBDfb y7K5eER2V7FvrxQpqc7vo5mq HPQgXAqgL14jqBIvj3R4YKPjhS C3ISXmwTmoDgFmwW01Uwi+PGNv fInvk1VpFlncg2byv9bhoQm2 VeZgJYZvjaVvvUdxODT2j6OcCk 14E99nWEbhNSZbBKFmKGAjUMHw aXxqfe4pqN7rOd5+PGNvbCB3 sCG0jX1jTFVuTvW4BPmyK656Rm XunEDeLaiqu1cqi7aomPj8DwKe TKPsmfYboSovBOJ3e1LxZo37 O45oWUvwSIJtZKVmVZJxTQHutC hhog2afL1sGw3+DP9rz3svss50 iM18fLL+AYUhTCQ6hVkgIPqd MAFguG9iFLhnYtM2XLDlBdNbnA 91bBElCUclFq1hqLdihJjuMI5y DNStdgwuw513QeKif9msKDFb oNEaUBjzPZP6E05qc5P6OKLlTW XvSZN1hVR0aE7pxLkgaxlmkRQu jSmyneNcsQmgZVdxDGctL870 IHRvcDsnPlBhdGllbnQgTmFtZT w0P6YgLwq3FDVogSmqGQ8thKQj KKpfVs3kgInjiWulYM8wJUWm plnni718QdHqx2hrEOHajRQgFS zpLJF3E27bt8F1FYVuACTaVDO3 oNR0uH6viQdekwcfsQSdpPoq vwNprAxeECrsHWgrB691DLNmfG efQkIflqNcDFStpCB5NT83UM66 mBEos3B9cFU8C4WwNYPqcfpe alvzxBU2OYCrCTYgqH90Mx5vuN qvRh8kPCLiHWI0UZMosHKcG0Rv kA6sLnTgEASePMGnT3IsbARk ZMatE914UJhjSuB6CFKfdhJoT2 KhYBPwsRruFbC2v9K0Tq3FF4C9 SJ30NI07gPNlt4Z5nLP8N3Nc ZFObxyokuxnnpCI6HMNtREOhjC 07Gl3wwIswCl2tAEYtCQA6ZABn wBYdQ2BwnL3vXjBmVKLlIUCv H4BqwEWnHEpbA189LGgsDwJ1DF EepbDhL6IcZYQvhZazUwM8g3E6 Wj9PWXy1BD22YJ71nJPdf2X0 gCR7P6LmAWTwqtnjuljzcCD3NI IdZEXipB72Jj0unFyuBj0qVWPz KQU8FQIyoFBwO7FbdG1hPuFk TNMeWZFeD4NajYEnXXkaK820UK biChM2AWYlhbLzA8UvDRFtgBif DiX3r3U5Mc6XZYVvBS34AWU4 dAP4ZR85WQ29W9MoFvxxlLZaqO U+PHRhYmxlIHdpZHRoPScxMDAl JqSpbLmbGE5rCc7oSOXkIIDv zOcdtFPuAjSjm9chBAHwHDalOS 1xuLduN4UecXO7WYQeq4q4Ml22 S62qN7RgfFA+XCMghPM6bWY1 hJ1zChZeKdZ4KPzyB785OePogO EoHwvdh6boq7oksBu1ErF3QJQe twVjaBaoATM8f8CsHe19K24l IHdpZHRoPSIxNSUiIHZhbGlnbj 5azR0fWr0+YYPcoWH6rMQ4qX2s OiNbVsK1WWtxA390RxObqIDh Idbna2weg8esmGv8MuXaSXVjsw WktPboYFG2e5EoNo15C4CsqPng e7FoCui2ja40rAVrt6D9pKJ2 P2LqYTHcbitfjLQctFtzUO8kGZ HzyctaLBSyeA8rBAOgY3v4EcQp AmQ4VOdmB5UfosR4GLVjfVHn BUxzKZX5E31cg3D0YOLvYDSmQX X3cDN5qO4jlKeejkglqTSrdWdd woRwuZejNJkbPBsxM073CUJc zVedIZNqqD3mYUZpfVWvmImdJW 3lYWItefadVdyMMh8BZyrlW5AE UM1qAJhzzLT+GUWcTWE4gIwj ITorTPZstG9tZCTuZ5r8OoPwGc H5INmwF3UkWJDszldlDl92aJ9w KeRpHaS9HIpyR0WkmlI7ZMYo kVIeEEonBYW6G16mg2M9CIJsAC JfYKM6nJC1aY4uxEqexsehvGDx wTqqmzNkhWjuDBtpMOecN917 EDRjeSruChE3IsK0FdY2MZV2N0 VcAgh6HRVorSvrZO2boEEzBHbo Pm1myJwolIqqZL8lSTPsaitl CMEwbT5fYPGleEEnlIllRH6kMA Vecqvbo705ScQqQEN6NMCwcIGy R5FsoB3vIgPrLWLzTAUtJ7Yw rVAtGZzjL535WUcdKgL3BANjti VsK8HmDKCkaOoiZrS1d8R8Fd91 NyBZZWFyczwvdGQ+PHRkIHN0 jMkjDWnkZOHtdY6vSIVxA0f4Mo ReSnH3BMczN8AnSIDrvuzxNz46 uA9kRrWrGcV8CYtkD2FrfzY3 TYJbgFWbJDdlAXA4O24qu2P4HU BeBDAzLSE9hXY9oZ6pzZimacby bGVmdDsgdmVydGljYWwtYWxp R955ZKTneQmgDgWGVXEAJDohfF Q+ARWuGJC1kTlpOWmpHYPywL5u BDNjX3n9ZpFyRpY1IFkfS5Tl RDAdgmneMq91kG2rHfAsFzY3BH epJ1MtxpD7GBJvuMHbMHmmEVN8 E26et6F0UMKuAUDpXEM3jEA3 fM9zuEeaijpauDTicPynlzWfiA auJUplSJqcU671UROtaEkzUlxb cCR6qNSsuOngsQA+BQ40rf49 D3SiIafyLho6VICaOGO8vHN3oI 3eWXAsPEvbq8R1vZF1G6QkdjTk ow5ia7ldQTXrWTjmX53lmJXt p5H6REUoeCS8DOJwjHiwHnWjfQ 93Oyc+PLIdoPakl3KaGmzej7dg v5wouNt5CkYmFETgtlIqxLcg ZJY9h4IwDm38O97jWWchUFDiVF NnEZAwWQYecEysyt9etM7qPy8+ ZJVgeSM6dDB1wM6hPbChWaY0 IMgsQ362TkIisIYcMapim7vdc0 wmbYy4ObEyUQOmlsHjnJdkZNA0 d6WnDe88T4RapJsoc2RlJsj5 dp82cTSkk3K6eRQ2B5GsHFAjnm vxrDXaoZrkBI5lKAUrllinJFPb zC5uVLJpO2g9DlXjIyX2DBdh D5JchkI6HLYhpGClZDDabSQObV 7fwcwew5pltyvpOaEbJBRcJIz1 QLf9OBTyqGzjVeQgKXP7BtD7 CFI5bSNhnY7djEzjfzufaH4uPn c+WHj6e3cxuCMfUF8jcSJ2HY78 OQ59vJBql3Y8hGN8N4KiSOLo tzxfuniqzBE7JMObNCGwlA59Pm 6teMxiIi7pYYBjAOI9SMDspJAu Z5QjjV6wWwKcJGJqJDEbV7Sb oFGcXYziA838YWarHhD8OZPzdx BnM8WcOVPptLzbHsO3o3J5Ds6X RC85RM91GT83ePEeq9Z4vRI0 C5TyCNHixdzezibccSA3TDHcLS SqpK29Jn9xlTftMb1cFDRnXTP7 TSRgbNSvQ7WkmY0eHyWzBTWt FJMcT5XsqYAlADyrB212MNdlBr F1MFEwkyYcU8GzNXKqzMxsQyB4 d6K6Qd4EOo80OQ62JI75tHKc i9E5cCH0O3MwTLZwhkwzuaewrM A4PMEsOKFdsW81Gg0vcUsgVi8d EXUsHUP1QOPsyTSyD9UfjV4x SnYhVBThZXXtQ9IoaXTrYXrmO2 52LHxdUuK5AZGemtBaZ2MkHJWy gXrqMrZ5q3M6Oy2ZUCzoxzz0 X7EcUkaomVO+UZ15KYMrTN62fB DlqNKkt1nhpXl4CzDxVTVzKIW0 qNyeDUhob7PbRDJcI52jtWPe c2U (more content not included)... [facility] Outside Recordson 08-17-2021 Outside Records [id number]-15-2021 Consent Forms [id number] Sendout Teston Pathology Send Out. See Report [facility] Comment on above: Order Comment: PROCE DURE COLONOSCOPYSPECIMEN CECAL POLYP Performed By: #### 1 [id number], [id number], [id number], [id number] #### [facility] (DEFAULT) [address] [place] [address] Provider Orderson 08-15-2021 Provider Orders [id number][facility] Tele[facility] Stripson Telemetry Strips [id number][facility] Transfer Noteon 08-15-2021 Transfer Note [id number]#1.00[facility] .Auto Diff 1on 08-14-2021 Auto Costilla % 7 % Normal 1-12 [facility] Comment on above: Performed By: #### 1 [id number], [id number], [id number], [id number] #### [facility] (DEFAULT) [address] [place] [address] 86692 Baso Abs# 0.0 x10 Normal 0.0-0.2 [facility] Comment on above: Performed By: #### 1 [id number], 1401474, 16592335, [id number] #### [facility] (DEFAULT) [address] [place] [address] 95325 Basophils/100 WBC (Bld) 1.0 % Normal 0.2-2.0 [facility] Comment on above: Performed By: #### 1 [id number], [id number], 56860663, 0835090 #### [facility] (DEFAULT) [address] [place] [address] 67548 Eos Abs# 0.1 x10 Normal 0.0-0.4 [facility] Comment on above: Performed By: #### 1 [id number], 1375275, 11989169, 1523409 #### [facility] (DEFAULT) [address] [place] [address] 57002 Eosinophils/100 WBC (Bld) 2.9 % Normal 0.9-4.0 [facility] Comment on above: Performed By: #### 1 [id number], 9902149, 80468495, [id number] #### [facility] (DEFAULT) [address] [place] [address] 93880 Lymph Abs# 1.5 x10 Normal 1.3-2.9 [facility] Comment on above: Performed By: #### 1 [id number], [id number], 39258345, 3589038 #### [facility] (DEFAULT) [address] [place] [address] Lymphocytes/100 WBC (Bld) 31 % Normal 14-48 [facility] Comment on above: Performed By: #### 1 [id number], 2508142, 07394990, 0393937 #### [facility] (DEFAULT) [address] [place] [address] Costilla Abs# 0.4 x10 Normal 0.0-0.8 [facility] Comment on above: Performed By: #### 1 [id number], 5857488, 66696555, 5260257 #### [facility] (DEFAULT) [address] [place] [address] Neut Abs# 2.8 x10 Normal 1.5-9.2 [facility] Comment on above: Performed By: #### 1 [id number], 3262645, 59914935, 2977765 #### [facility] (DEFAULT) [address] [place] [address] Neutrophils/100 WBC (Bld) 58 % Normal 44-88 [facility] Comment on above: Performed By: #### 1 [id number], 5120597, 49052979, 5279316 #### [facility] (DEFAULT) [address] [place] [address] C. diff DNAon 08-14-2021 C. diff DNA Negative Normal Negative [facility] Comment on above: Performed By: #### 4 [id number] ####[facility] (DEFAULT)[address] [place] [address] Internal QC OK? Pass Normal [facility] Comment on above: Performed By: #### 4 [id number] ####[facility] (DEFAULT)[address] [place] [address] CBC w/ Auto Diffon Erythrocyte distribution width (RBC) [Ratio] 17.9 % High 11.5-15.0 [facility] Comment on above: Performed By: #### 1 [id number], 4917422, 42822515, 5985613 #### [facility] (DEFAULT) [address] [place] [address] 76818 Hematocrit (Bld) [Volume fraction] 27.8 % Low 33.7-40.4 [facility] Comment on above: Performed By: #### 1 [id number], 9298737, 76379481, 6418450 #### [facility] (DEFAULT) [address] [place] [address] 53319 Hemoglobin (Bld) [Mass/Vol] 8.1 g/dL Low 11.3-15.9 [facility] Comment on above: Performed By: #### 1 [id number], 5838153, 92643693, 6818786 #### [facility] (DEFAULT) [address] [place] [address] Instr WBC 4.9 x10 Invalid Interpretation Code [facility] Comment on above: Performed By: #### 1 [id number], 9608420, 05104981, 6731988 #### [facility] (DEFAULT) [address] [place] [address] 22186 Man Diff? Auto Normal [facility] Comment on above: Performed By: #### 1 [id number], 8175860, 01249209, 8107463 #### [facility] (DEFAULT) [address] [place] [address] 42546 MCH (RBC) [Entitic mass] 27 pg Normal 24-34 [facility] Comment on above: Performed By: #### 1 [id number], 0247466, 01942062, 3442484 #### [facility] (DEFAULT) [address] [place] [address] 47549 MCHC (RBC) [Mass/Vol] 29 g/dL Normal 26-37 [facility] Comment on above: Performed By: #### 1 [id number], 7335404, 60804867, 7346265 #### [facility] (DEFAULT) [address] [place] [address] 03006 MCV (RBC) [Entitic vol] 94 fL Normal 81-100 [facility] Comment on above: Performed By: #### 1 [id number], 3333737, 69359683, 3710458 #### [facility] (DEFAULT) [address] [place] [address] 16517 Platelet 280 x10 Normal 138-427 [facility] Comment on above: Performed By: #### 1 [id number], 5505975, 38158180, 9991684 #### [facility] (DEFAULT) [address] [place] [address] 67688 Platelet mean volume (Bld) [Entitic vol] 9.3 fL Normal 6.3-10.2 [facility] Comment on above: Performed By: #### 1 [id number], 2105696, 97590807, 1386369 #### [facility] (DEFAULT) [address] [place] [address] RBC 2.96 x10 Low 3.70-5.30 [facility] Comment on above: Performed By: #### 1 [id number], 7256661, 15368325, 7886541 #### [facility] (DEFAULT) [address] [place] [address] WBC 4.9 x10 Normal 3.5-10.5 [facility] Comment on above: Performed By: #### 1 [id number], 5217460, 96770274, 6664411 #### [facility] (DEFAULT) [address] [place] [address] 08551 CMP Standardon 08-14-2021 eGFR Non AA >60 Invalid Interpretation Code [facility] Comment on above: Performed By: #### 1 [id number], 5988831, 89352811, 8155744 #### [facility] (DEFAULT) [address] [place] [address] eGFR AA >60 Invalid Interpretation Code [facility] Comment on above: Result Comment: Commercial Correspondent juanito Kidney disease could be indicated at eGFRs of less than 60 ml/min/1.73m2. Kidney Failure is indicated at less than 15 ml/min/1.73m2 Performed By: #### 1 [id number], 6509017, 00712529, 3376923 #### [facility] (DEFAULT) [address] [place] [address] 41793 Albumin [Mass/Vol] 3.0 g/dL Low 3.5-5.0 [facility] Comment on above: Performed By: #### 1 [id number], 9297514, 24896614, 3144071 #### [facility] (DEFAULT) [address] [place] [address] Albumin/Globulin [Mass ratio] 1.8 {ratio} Normal 1.4-2.6 [facility] Comment on above: Performed By: #### 1 [id number], 9339309, 07424056, 6416741 #### [facility] (DEFAULT) [address] [place] [address] Alk Phos 35 IU/L Normal 32-91 [facility] Comment on above: Performed By: #### 1 [id number], 6171478, 14526060, 8723834 #### [facility] (DEFAULT) [address] [place] [address] ALT [Catalytic activity/Vol] 16.0 U/L Normal 14.0-54.0 [facility] Comment on above: Performed By: #### 1 [id number], 7648800, 51279798, 0178010 #### [facility] (DEFAULT) [address] [place] [address] Anion gap [Moles/Vol] 12.0 mmol/L Normal 5.0-19.0 [facility] Comment on above: Performed By: #### 1 [id number], 0466019, 45066352, 9354563 #### [facility] (DEFAULT) [address] [place] [address] AST [Catalytic activity/Vol] 24 U/L Normal 15-41 [facility] Comment on above: Performed By: #### 1 [id number], 6930692, 64210645, 3642623 #### [facility] (DEFAULT) [address] [place] [address] Bili Total 0.5 mg/dL Normal 0.3-1.2 [facility] Comment on above: Performed By: #### 1 [id number], 6213429, 94319089, 4954475 #### [facility] (DEFAULT) [address] [place] [address] 95194 Calcium [Mass/Vol] 7.4 mg/dL Low 8.9-10.3 [facility] Comment on above: Performed By: #### 1 [id number], 3400354, 90230733, 5308578 #### [facility] (DEFAULT) [address] [place] [address] 84102 Chloride [Moles/Vol] 108 mmol/L Normal 101-111 [facility] Comment on above: Performed By: #### 1 [id number], 6141312, 39740393, 5234438 #### [facility] (DEFAULT) [address] [place] [address] 62194 CO2 [Moles/Vol] 26 mmol/L Normal 21-32 [facility] Comment on above: Performed By: #### 1 [id number], 5449331, 94986626, 3009484 #### [facility] (DEFAULT) [address] [place] [address] 26817 Creatinine [Mass/Vol] 0.68 mg/dL Normal 0.60-1.30 [facility] Comment on above: Performed By: #### 1 [id number], [id number], [id number], [id number] #### [facility] (DEFAULT) [address] [place] [address] 57281 Globulin (S) [Mass/Vol] 1.7 g/dL Normal 1.5-4.3 [facility] Comment on above: Performed By: #### 1 [id number], [id number], 57121797, [id number] #### [facility] (DEFAULT) [address] [place] [address] 52241 Glucose [Mass/Vol] 80.0 mg/dL Normal 74.0-118.0 [facility] Comment on above: Performed By: #### 1 [id number], [id number], [id number], [id number] #### [facility] (DEFAULT) [address] [place] [address] 76809 Osmolality 279 mOsm/L Invalid Interpretation Code [facility] Comment on above: Performed By: #### 1 [id number], [id number], [id number], [id number] #### [facility] (DEFAULT) [address] [place] [address] 46304 Potassium [Moles/Vol] 5.5 mmol/L High 3.6-5.1 [facility] Comment on above: Performed By: #### 1 [id number], 4050541, 69808476, 5843721 #### [facility] (DEFAULT) [address] [place] [address] 34764 Protein [Mass/Vol] 4.7 g/dL Low 6.5-8.1 [facility] Comment on above: Performed By: #### 1 [id number], 9439866, 09890064, 8198254 #### [facility] (DEFAULT) [address] [place] [address] 98043 Sodium [Moles/Vol] 140.0 mmol/L Normal 136.0-144.0 [facility] Comment on above: Performed By: #### 1 [id number], 3808999, 53935859, 1392044 #### [facility] (DEFAULT) [address] [place] [address] 50398 Urea nitrogen [Mass/Vol] 14 mg/dL Normal 8-26 [facility] Comment on above: Performed By: #### 1 [id number], 1312736, 63105577, 5260363 #### [facility] (DEFAULT) [address] [place] [address] 11046 Urea nitrogen/Creatinin e [Mass ratio] 21.0 mg/mg High 4.6-16.2 [facility] Comment on above: Performed By: #### 1 [id number], 8436918, 94906932, 3782520 #### [facility] (DEFAULT) [address] [place] [address] 52091 Inpatient Patient Summaryon 08-14-2021 Inpatient Patient Summary [address] [address] Patient Discharge Instructions Name: ASHVIN RENE : 1955 Patient Address: [address] [place] [address] Primary Care Provider: Name: RUSS CHRISTOPHER TUSHAR After you are discharged if you find you have any questions, please, call [phone] to speak to a nurse. [...] alcohol and/or drug addiction problems; contact the [facility] 03/02 Crisis Hotline -Text 4HOPE to 384678. If you received any narcotics, sedation, or [...] business decisions or sign any legal documents [facility] would like to thank you for allowing us to assist you with your healthcare needs. The following includes patient education materials and information regarding your injury/illness. ASHVIN RENE has been given the following list of follow-up instructions, prescriptions, and patient education materials: Follow-up Instructions With: Address: When: TUSHAR SOLANO JR. [address] [place] [address] Business (1) 08/21/2021 2:45 PM Medications During the course of your visit, your medication list was updated with the most current information. The details of those changes are reflected below: New Medications [facility], [address] [place] [address] [id number], [phone] ferrous sulfate (ferrous sulfate 325 mg (65 [...] IN MORNING MEAL, HOLD IF STANDING BP [id number]. Medications to Continue That Have Not Changed [...] mg oral tablet) potassium chloride (Potassium Chloride (Anj-Huiz-Xqr 10) 10 mEq oral tablet, extended release) [...] 250 mg oral (more content not included)... [facility] - [facility] - [facility] Results [id number] [facility] Pharmacy Noteon 08-14-2021 Pharmacy Note I have personally re viewed the patient's medication list upon discharge including, prescription medications, OTC products, vitamins and supplements. Below are the following medications the patient is discharged on. New Medications [facility], [address] [place] [address] [id number], [phone] ferrous sulfate (ferrous sulfate 325 mg (65 mg elemental iron) oral tablet) 1 tab(s) Oral 2 times a day for 30 Days. Refills: 1. torsemide (torsemide 20 mg oral tablet) 1 tab(s) Oral every other day for 30 Days. [facility]. Refills: 1. Medications That Were Updated - Follow Below Instructions Other Medications Updated: fludrocortisone (fludrocortisone 0.1 mg oral tablet) 0.5 tab(s) Oral every day. TAKE IN MORNING MEAL, HOLD IF STANDING BP [id number]. Updated: midodrine (midodrine 10 mg oral tablet) [...] Oral every day. potassium chloride (Potassium Chloride (Fnm-Tsgq-Shm 10) 10 mEq oral tablet, extended release) 1 tab(s) Oral 3 times a day. vancomycin (Firvanq 25 mg/mL oral liquid) 5 Milliliter Oral 4 times a day. [Electronically Signed on: 08/14/2021 15:17 EST] Nadia Devi [Verified on: 08/14/2021 15:17 EST] Nadia Devi Normal [facility] .Auto Diff 1on 08-13-2021 Auto Costilla % 6 % Normal 12 [facility] Comment on above: Performed By: #### 1 [id number], [id number], 66227363, 8993342 #### [facility] (DEFAULT) [address] [place] [address] 49189 Baso Abs# 0.0 x10 Normal 0.0-0.2 [facility] Comment on above: Performed By: #### 1 [id number], [id number], 64882086, 1898212 #### [facility] (DEFAULT) [address] [place] [address] 78775 Basophils/100 WBC (Bld) 0.5 % Normal 0.2-2.0 [facility] Comment on above: Performed By: #### 1 [id number], 3577178, 86798010, 3068293 #### [facility] (DEFAULT) [address] [place] [address] 46998 Eos Abs# 0.1 x10 Normal 0.0-0.4 [facility] Comment on above: Performed By: #### 1 [id number], 3646291, 14802983, 4081727 #### [facility] (DEFAULT) [address] [place] [address] 30693 Eosinophils/100 WBC (Bld) 1.7 % Normal 0.9-4.0 [facility] Comment on above: Performed By: #### 1 [id number], 0911690, 36312671, 8893595 #### [facility] (DEFAULT) [address] [place] [address] 42970 Lymph Abs# 1.4 x10 Normal 1.3-2.9 [facility] Comment on above: Performed By: #### 1 [id number], 5161453, 74160661, 8603657 #### [facility] (DEFAULT) [address] [place] [address] 34911 Lymphocytes/100 WBC (Bld) 21 % Normal 14-48 [facility] Comment on above: Performed By: #### 1 [id number], 1022710, 36496445, 4605896 #### [facility] (DEFAULT) [address] [place] [address] 09154 Costilla Abs# 0.4 x10 Normal 0.0-0.8 [facility] Comment on above: Performed By: #### 1 [id number], 7541189, 38040755, 9650012 #### [facility] (DEFAULT) [address] [place] [address] 81460 Neut Abs# 4.5 x10 Normal 1.5-9.2 [facility] Comment on above: Performed By: #### 1 [id number], 0487538, 10489146, 2217285 #### [facility] (DEFAULT) [address] [place] [address] Neutrophils/100 WBC (Bld) 71 % Normal 44-88 [facility] Comment on above: Performed By: #### 1 [id number], 8684739, 06769901, 9892327 #### [facility] (DEFAULT) [address] [place] [address] ABORhon 08-13-2021 ABO and Rh group Nom (Bld) Placed by Discern Expert due to BBPR being ordered. Hx Check: Found Anti-A: 0 Anti-B: 0 Anti-D: 4+ DCon: NT A1: 4+ B: 4+ ABORh Interp: O POS Invalid Interpretation Code [facility] Comment on above: Performed By: #### 1 [id number], [id number], 46863163, [id number] #### [facility] (DEFAULT) [address] [place] [address] ABSC Gelon 08-13-2021 ABSC Gel Placed by Discern Ex pert due to BBPR being ordered. SC1 Gel: 0 SC2 Gel: 0 SC3 Gel: 0 ABSC Gel Interp: Negative Normal [facility] Comment on above: Performed By: #### 1 [id number], 7845223, 08154549, 7972795 #### [facility] (DEFAULT) [address] [place] [address] BMP Standardon 08-13-2021 Anion gap [Moles/Vol] 13.0 mmol/L Normal 5.0-19.0 [facility] Comment on above: Performed By: #### 1 [id number], 4915817, 57042466, 6465212 #### [facility] (DEFAULT) [address] [place] [address] 52014 Calcium [Mass/Vol] 6.8 mg/dL Low 8.9-10.3 [facility] Comment on above: Performed By: #### 1 [id number], 6657491, 88717795, 9855249 #### [facility] (DEFAULT) [address] [place] [address] 00913 Chloride [Moles/Vol] 106 mmol/L Normal 101-111 [facility] Comment on above: Performed By: #### 1 [id number], 9575574, 89130514, 4553905 #### [facility] (DEFAULT) [address] [place] [address] 28426 CO2 [Moles/Vol] 24 mmol/L Normal 21-32 [facility] Comment on above: Performed By: #### 1 [id number], 7428740, 40305718, 0600000 #### [facility] (DEFAULT) [address] [place] [address] 43016 Creatinine [Mass/Vol] 0.65 mg/dL Normal 0.60-1.30 [facility] Comment on above: Performed By: #### 1 [id number], 3209322, 78014774, 0764115 #### [facility] (DEFAULT) [address] [place] [address] 00298 Glucose [Mass/Vol] 108.0 mg/dL Normal 74.0-118.0 [facility] Comment on above: Performed By: #### 1 [id number], 4329328, 84130583, 0148270 #### [facility] (DEFAULT) [address] [place] [address] 84790 Osmolality 275 mOsm/L Invalid Interpretation Code [facility] Comment on above: Performed By: #### 1 [id number], 3608685, 36762602, 7809163 #### [facility] (DEFAULT) [address] [place] [address] 19666 Potassium [Moles/Vol] 5.0 mmol/L Normal 3.6-5.1 [facility] Comment on above: Result Comment: Pota ssium medication/therapy Performed By: #### 1 [id number], 6522656, 21184672, 0704387 #### [facility] (DEFAULT) [address] [place] [address] Sodium [Moles/Vol] 138.0 mmol/L Normal 136.0-144.0 [facility] Comment on above: Performed By: #### 1 [id number], 8298587, 37515173, 3356933 #### [facility] (DEFAULT) [address] [place] [address] Urea nitrogen [Mass/Vol] 10 mg/dL Normal 8-26 [facility] Comment on above: Performed By: #### 1 [id number], 2330841, 70904238, 8312527 #### [facility] (DEFAULT) [address] [place] [address] Urea nitrogen/Creatinin e [Mass ratio] 15.0 mg/mg Normal 4.6-16.2 [facility] Comment on above: Performed By: #### 1 [id number], 9363041, 95818704, 8502658 #### [facility] (DEFAULT) [address] [place] [address] eGFR Non AA >60 Invalid Interpretation Code [facility] Comment on above: Performed By: #### 1 [id number], 3204959, 65956123, 4109957 #### [facility] (DEFAULT) [address] [place] [address] eGFR AA >60 Invalid Interpretation Code [facility] Comment on above: Result Comment: Commercial Correspondent juanito Kidney disease could be indicated at eGFRs of less than 60 ml/min/1.73m2. Kidney Failure is indicated at less than 15 ml/min/1.73m2 Performed By: #### 1 [id number], 0359768, 66785092, 8151107 #### [facility] (DEFAULT) [address] [place] [address] CBC w/ Auto Diffon 2 Erythrocyte distribution width (RBC) [Ratio] 17.8 % High 11.5-15.0 [facility] Comment on above: Performed By: #### 1 [id number], 9267899, 93731277, 4274410 #### [facility] (DEFAULT) [address] [place] [address] 42298 Hematocrit (Bld) [Volume fraction] 26.7 % Low 33.7-40.4 [facility] Comment on above: Performed By: #### 1 489498730, 4468536, 91839905, 7926040 #### [facility] (DEFAULT) [address] [place] [address] 12180 Hemoglobin (Bld) [Mass/Vol] 7.8 g/dL Low 11.3-15.9 [facility] Comment on above: Performed By: #### 1 913233735, 6773027, 80225724, 4569813 #### [facility] (DEFAULT) [address] [place] [address] Instr WBC 6.4 x10 Invalid Interpretation Code [facility] Comment on above: Performed By: #### 1 [id number], 4631106, 42355013, 6900524 #### [facility] (DEFAULT) [address] [place] [address] 67367 Man Diff? Auto Normal [facility] Comment on above: Performed By: #### 1 634947519, 0753255, 08860919, 4375366 #### [facility] (DEFAULT) [address] [place] [address] 10453 MCH (RBC) [Entitic mass] 27 pg Normal 24-34 [facility] Comment on above: Performed By: #### 1 784893935, 7314182, 04501135, 7596500 #### [facility] (DEFAULT) [address] [place] [address] 01660 MCHC (RBC) [Mass/Vol] 29 g/dL Normal 26-37 [facility] Comment on above: Performed By: #### 1 919347348, 1407772, 17135258, 7430605 #### [facility] (DEFAULT) [address] [place] [address] 22822 MCV (RBC) [Entitic vol] 94 fL Normal 81-100 [facility] Comment on above: Performed By: #### 1 483612020, 3995275, 99126935, 1138801 #### [facility] (DEFAULT) [address] [place] [address] Platelet 309 x10 Normal 138-427 [facility] Comment on above: Performed By: #### 1 426871349, 5800835, 37960877, 8634939 #### [facility] (DEFAULT) [address] [place] [address] Platelet mean volume (Bld) [Entitic vol] 9.2 fL Normal 6.3-10.2 [facility] Comment on above: Performed By: #### 1 836392641, 7455971, 72390290, 0794024 #### [facility] (DEFAULT) [address] [place] [address] RBC 2.85 x10 Low 3.70-5.30 [facility] Comment on above: Performed By: #### 1 515516497, 9813574, 69156251, 9363659 #### [facility] (DEFAULT) [address] [place] [address] WBC 6.4 x10 Normal 3.5-10.5 [facility] Comment on above: Performed By: #### 1 928273692, 9783500, 50837151, 5658874 #### [facility] (DEFAULT) [address] [place] [address] H&Hon 08-13-2021 Hematocrit (Bld) [Volume fraction] 29.9 % Low 33.7-40.4 [facility] Comment on above: Performed By: #### 1 640550018, 2487000, 52680363, 4772071 #### [facility] (DEFAULT) [address] [place] [address] Hemoglobin (Bld) [Mass/Vol] 8.7 g/dL Low 11.3-15.9 [facility] Comment on above: Performed By: #### 1 733074656, 3545750, 66294151, 0562848 #### [facility] (DEFAULT) [address] [place] [address] Magnesiumon 08-13-2021 Magnesium [Mass/Vol] 2.07 mg/dL Normal 1.80-2.50 [facility] Comment on above: Performed By: #### 1 288450567, 4535211, 52003059, 2143219 #### [facility] (DEFAULT) [address] [place] [address] 17038 Nutrition Noteon 08-13-2021 Nutrition Note 08/12 wt [...] Pt to be discharged back to [facility]. If discharge plans change, will re-add supplements. Will request re-weight in am. [facility] RBC.on 08-13-2021 RBC. # of Units: 1 RBC Indication: Symptom Anemia Additional Units?: No Date Needed: 08/13/2021 Red Cell Status: RBC Ready [facility] Comment on above: Performed By: #### 1 [id number], 2961681, 00352697, 7092011 #### [facility] (DEFAULT) [address] [place], [place] [address] Telemetry Stripson 2 Telemetry Strips [id number] [facility] .Auto Diff 1on 08-12-2021 Auto Costilla % 8 % Normal 07-25 [facility] Comment on above: Performed By: #### 7 554326, 01277150, 3593165, 4858566959 #### [facility] (DEFAULT) [address] [place] [address] 74910 Baso Abs# 0.0 x10 Normal 0.0-0.2 [facility] Comment on above: Performed By: #### 7 095787, 19931119, 0089434, 0441454368 #### [facility] (DEFAULT) [address] [place] [address] 52764 Basophils/100 WBC (Bld) 0.7 % Normal 0.2-2.0 [facility] Comment on above: Performed By: #### 7 054088, 47404108, 7923685, 4228670077 #### [facility] (DEFAULT) [address] [place] [address] 05870 Eos Abs# 0.1 x10 Normal 0.0-0.4 [facility] Comment on above: Performed By: #### 7 936252, 08855509, 8854053, 4839033196 #### [facility] (DEFAULT) [address] [place] [address] 73258 Eosinophils/100 WBC (Bld) 1.8 % Normal 0.9-4.0 [facility] Comment on above: Performed By: #### 7 336589, 72388584, 3284307, 8291641551 #### [facility] (DEFAULT) [address] [place] [address] 30370 Lymph Abs# 1.6 x10 Normal 1.3-2.9 [facility] Comment on above: Performed By: #### 7 863996, 13622486, 7914906, 4173064791 #### [facility] (DEFAULT) [address] [place] [address] 79235 Lymphocytes/100 WBC (Bld) 30 % Normal 14-48 [facility] Comment on above: Performed By: #### 7 484577, 65817907, 9434880, 5824730831 #### [facility] (DEFAULT) [address] [place] [address] 56897 Costilla Abs# 0.4 x10 Normal 0.0-0.8 [facility] Comment on above: Performed By: #### 7 192488, 24926876, 5192370, 1150477702 #### [facility] (DEFAULT) [address] [place] [address] 42115 Neut Abs# 3.2 x10 Normal 1.5-9.2 [facility] Comment on above: Performed By: #### 7 224611, 71337578, 7848258, 7797907609 #### [facility] (DEFAULT) [address] [place] [address] 67797 Neutrophils/100 WBC (Bld) 60 % Normal 44-88 [facility] Comment on above: Performed By: #### 7 202971, 95013390, 6997689, 5867971834 #### [facility] (DEFAULT) [address] [place] [address] CBC w/ Auto Diffon 2 Erythrocyte distribution width (RBC) [Ratio] 17.9 % High 11.5-15.0 [facility] Comment on above: Performed By: #### 7 385797, 21693241, 3138902, 7560258588 #### [facility] (DEFAULT) [address] [place] [address] Hematocrit (Bld) [Volume fraction] 28.6 % Low 33.7-40.4 [facility] Comment on above: Performed By: #### 7 254678, 56938994, 3308852, 3328922277 #### [facility] (DEFAULT) [address] [place] [address] Hemoglobin (Bld) [Mass/Vol] 8.5 g/dL Low 11.3-15.9 [facility] Comment on above: Performed By: #### 7 013811, 84510042, 9026079, 7907145122 #### [facility] (DEFAULT) [address] [place] [address] Instr WBC 5.4 x10 Invalid Interpretation Code [facility] Comment on above: Performed By: #### 7 813173, 94600267, 0940771, 2109438593 #### [facility] (DEFAULT) [address] [place] [address] Man Diff? Auto Normal [facility] Comment on above: Performed By: #### 7 830754, 65948792, 6943430, 6487926194 #### [facility] (DEFAULT) [address] [place] [address] MCH (RBC) [Entitic mass] 28 pg Normal 24-34 [facility] Comment on above: Performed By: #### 7 923162, 14637992, 5738568, 2770819786 #### [facility] (DEFAULT) [address] [place] [address] MCHC (RBC) [Mass/Vol] 30 g/dL Normal 26-37 [facility] Comment on above: Performed By: #### 7 199186, 09379063, 9976901, 5598954526 #### [facility] (DEFAULT) [address] [place] [address] MCV (RBC) [Entitic vol] 94 fL Normal 81-100 [facility] Comment on above: Performed By: #### 7 392628, 63612953, 5244875, 5739294887 #### [facility] (DEFAULT) [address] [place] [address] Platelet 305 x10 Normal 138-427 [facility] Comment on above: Performed By: #### 7 870103, 90351679, 9730782, 6881344845 #### [facility] (DEFAULT) [address] [place] [address] Platelet mean volume (Bld) [Entitic vol] 9.8 fL Normal 6.3-10.2 [facility] Comment on above: Performed By: #### 7 187107, 02688276, 2923724, 7474421985 #### [facility] (DEFAULT) [address] [place] [address] RBC 3.03 x10 Low 3.70-5.30 [facility] Comment on above: Performed By: #### 7 523124, 19597133, 4466529, 5788541175 #### [facility] (DEFAULT) [address] [place] [address] WBC 5.4 x10 Normal 3.5-10.5 [facility] Comment on above: Performed By: #### 7 377437, 32453781, 2486586, 0838732360 #### [facility] (DEFAULT) [address] [place] [address] CMP Standardon 08-12-2021 Albumin [Mass/Vol] 3.3 g/dL Low 3.5-5.0 [facility] Comment on above: Performed By: #### 7 216376, 97156386, 1964741, 3467709863 ####[facility] (DEFAULT)[address] [place] [address] Albumin/Globulin [Mass ratio] 2.4 {ratio} Normal 1.4-2.6 [facility] Comment on above: Performed By: #### 7 446585, 78890459, 8008360, 9849328653 ####[facility] (DEFAULT)[address] [place] [address] Alk Phos 28 IU/L Low 32-91 [facility] Comment on above: Performed By: #### 7 831391, 62719014, 0393138, 9854447337 ####[facility] (DEFAULT)[address] [place] [address] ALT [Catalytic activity/Vol] 14.0 U/L Normal 14.0-54.0 [facility] Comment on above: Performed By: #### 7 686393, 67741496, 1359397, 7490340728 ####[facility] (DEFAULT)[address] [place] [address] Anion gap [Moles/Vol] 15.0 mmol/L Normal 5.0-19.0 [facility] Comment on above: Performed By: #### 7 903312, 82912309, 6471772, 8690418437 ####[facility] (DEFAULT)[address] [place] [address] AST [Catalytic activity/Vol] 27 U/L Normal 15-41 [facility] Comment on above: Performed By: #### 7 159292, 66565990, 0135709, 6075690946 ####[facility] (DEFAULT)[address] [place] [address] 95583 Bili Total 0.5 mg/dL Normal 0.3-1.2 [facility] Comment on above: Performed By: #### 7 234227, 00566584, 5688253, 7098304416 ####[facility] (DEFAULT)[address] [place] [address] Calcium [Mass/Vol] 6.7 mg/dL Low 8.9-10.3 [facility] Comment on above: Performed By: #### 7 331433, 52461545, 8561707, 2180856845 ####[facility] (DEFAULT)[address] [place] [address] 26425 Chloride [Moles/Vol] 103 mmol/L Normal 101-111 [facility] Comment on above: Performed By: #### 7 352572, 81303783, 3288654, 3700596225 ####[facility] (DEFAULT)[address] [place] [address] 55045 CO2 [Moles/Vol] 27 mmol/L Normal 21-32 [facility] Comment on above: Performed By: #### 7 877494, 93547971, 7840471, 6254235427 ####[facility] (DEFAULT)[address] [place] [address] 83249 Creatinine [Mass/Vol] 0.68 mg/dL Normal 0.60-1.30 [facility] Comment on above: Performed By: #### 7 148788, 71466276, 8332412, 8019980762 ####[facility] (DEFAULT)[address] [place] [address] 77557 Globulin (S) [Mass/Vol] 1.4 g/dL Low 1.5-4.3 [facility] Comment on above: Performed By: #### 7 977175, 81924393, 8016695, 3453823316 ####[facility] (DEFAULT)[address] [place] [address] 39962 Glucose [Mass/Vol] 76.0 mg/dL Normal 74.0-118.0 [facility] Comment on above: Performed By: #### 7 833152, 16841925, 8974209, 9764534819 ####[facility] (DEFAULT)[address] [place] [address] 98621 Osmolality 278 mOsm/L Invalid Interpretation Code [facility] Comment on above: Performed By: #### 7 427396, 20415644, 3268969, [id number] ####[facility] (DEFAULT)[address] [place] [address] 90054 Potassium [Moles/Vol] 4.3 mmol/L Normal 3.6-5.1 [facility] Comment on above: Result Comment: IV T herapy Performed By: #### 7 031878, 72625852, 5349365, [id number] ####[facility] (DEFAULT)[address] [place] [address] 58060 Protein [Mass/Vol] 4.7 g/dL Low 6.5-8.1 [facility] Comment on above: Performed By: #### 7 323615, 37577853, 3313142, 2957309675 ####[facility] (DEFAULT)[address] [place] [address] 78373 Sodium [Moles/Vol] 141.0 mmol/L Normal 136.0-144.0 [facility] Comment on above: Performed By: #### 7 436903, 35625593, 8317837, 1236542961 ####[facility] (DEFAULT)[address] [place] [address] Urea nitrogen [Mass/Vol] 8 mg/dL Normal 8-26 [facility] Comment on above: Performed By: #### 7 995508, 42704815, 5470839, 4169022892 ####[facility] (DEFAULT)[address] [place] [address] 39525 Urea nitrogen/Creatinin e [Mass ratio] 12.0 mg/mg Normal 4.6-16.2 [facility] Comment on above: Performed By: #### 7 398984, 95228830, 4768967, 9649995167 ####[facility] (DEFAULT)[address] [place] [address] 13920 eGFR Non AA >60 Invalid Interpretation Code [facility] Comment on above: Performed By: #### 7 129878, 19903727, 6991614, 6270953543 ####[facility] (DEFAULT)[address] [place] [address] 76692 eGFR AA >60 Invalid Interpretation Code [facility] Comment on above: Result Comment: Commercial Correspondent juanito Kidney disease could be indicated at eGFRs of less than 60 ml/min/1.73m2. Kidney Failure is indicated at less than 15 ml/min/1.73m2 Performed By: #### 7 119935, 79103306, 9668528, 3716844480 ####[facility] (DEFAULT)[address] [place] [address] Magnesiumon 08-12-2021 Magnesium [Mass/Vol] 1.21 mg/dL Low 1.80-2.50 [facility] Comment on above: Performed By: #### 7 314685, 19629045, 5295284, 5388268146 #### [facility] (DEFAULT) [address] [place] [address] .Auto Diff 1on 08-11-2021 Auto Costilla % 8 % Normal 1-12 [facility] Comment on above: Performed By: #### 2 289522, 6817510256, 9054032, 75359898 ####[facility] (DEFAULT)[address] [place] [address] Baso Abs# 0.0 x10 Normal 0.0-0.2 [facility] Comment on above: Performed By: #### 2 842194, 3128256880, 4698491, 19494821 ####[facility] (DEFAULT)[address] [place] [address] Basophils/100 WBC (Bld) 0.6 % Normal 0.2-2.0 [facility] Comment on above: Performed By: #### 2 073012, 3131771770, 0976932, 57425642 ####[facility] (DEFAULT)[address] [place] [address] Eos Abs# 0.2 x10 Normal 0.0-0.4 [facility] Comment on above: Performed By: #### 2 251367, 3008730309, 1791265, 29393029 ####[facility] (DEFAULT)[address] [place] [address] Eosinophils/100 WBC (Bld) 3.1 % Normal 0.9-4.0 [facility] Comment on above: Performed By: #### 2 566441, 3419146565, 8236167, 15286067 ####[facility] (DEFAULT)[address] [place] [address] Lymph Abs# 1.4 x10 Normal 1.3-2.9 [facility] Comment on above: Performed By: #### 2 515794, 0381956391, 8368335, 53961843 ####[facility] (DEFAULT)[address] [place] [address] Lymphocytes/100 WBC (Bld) 28 % Normal 14-48 [facility] Comment on above: Performed By: #### 2 204721, 9661902889, 6184459, 19420561 ####[facility] (DEFAULT)[address] [place] [address] Costilla Abs# 0.4 x10 Normal 0.0-0.8 [facility] Comment on above: Performed By: #### 2 664804, 3615611806, 7653895, 95509965 ####[facility] (DEFAULT)[address] [place] [address] Neut Abs# 3.2 x10 Normal 1.5-9.2 [facility] Comment on above: Performed By: #### 2 847499, 9126485442, 8385636, 22910233 ####[facility] (DEFAULT)[address] [place] [address] Neutrophils/100 WBC (Bld) 61 % Normal 44-88 [facility] Comment on above: Performed By: #### 2 250011, 4304996455, 0057227, 08090630 ####[facility] (DEFAULT)[address] [place] [address] Standardon 08-11-2021 eGFR Non AA >60 Invalid Interpretation Code [facility] Comment on above: Performed By: #### 2 725461, 6408293800, 0439156, 46093132 ####[facility] (DEFAULT)[address] [place] [address] eGFR AA >60 Invalid Interpretation Code [facility] Comment on above: Result Comment: Commercial Correspondent juanito Kidney disease could be indicated at eGFRs of less than 60 ml/min/1.73m2. Kidney Failure is indicated at less than 15 ml/min/1.73m2 Performed By: #### 2 875708, 3260645587, 8124766, 15301268 ####[facility] (DEFAULT)[address] [place] [address] 64761 Anion gap [Moles/Vol] 17.0 mmol/L Normal 5.0-19.0 [facility] Comment on above: Performed By: #### 2 701595, 9219024743, 7002145, 76855421 ####[facility] (DEFAULT)[address] [place] [address] 02043 Calcium [Mass/Vol] 6.7 mg/dL Low 8.9-10.3 [facility] Comment on above: Performed By: #### 2 129329, 9008569531, 9714838, 62023646 ####[facility] (DEFAULT)[address] [place] [address] 94094 Chloride [Moles/Vol] 104 mmol/L Normal 101-111 [facility] Comment on above: Performed By: #### 2 781378, 8723351010, 0420988, 39298494 ####[facility] (DEFAULT)[address] [place] [address] 27186 CO2 [Moles/Vol] 24 mmol/L Normal 21-32 [facility] Comment on above: Performed By: #### 2 662396, 3952597073, 5040094, 02874395 ####[facility] (DEFAULT)[address] [place] [address] 76682 Creatinine [Mass/Vol] 0.57 mg/dL Low 0.60-1.30 [facility] Comment on above: Performed By: #### 2 209302, 2569624775, 8371261, 78105357 ####[facility] (DEFAULT)[address] [place] [address] 00807 Glucose [Mass/Vol] 81.0 mg/dL Normal 74.0-118.0 [facility] Comment on above: Performed By: #### 2 945237, 4552741242, 4213462, 82514663 ####[facility] (DEFAULT)[address] [place] [address] 51126 Osmolality 278 mOsm/L Invalid Interpretation Code [facility] Comment on above: Performed By: #### 2 845440, 5564044116, 2464997, 01256800 ####[facility] (DEFAULT)[address] [place] [address] 02055 Potassium [Moles/Vol] 3.6 mmol/L Normal 3.6-5.1 [facility] Comment on above: Performed By: #### 2 384632, 5021261986, 6609389, 04973213 ####[facility] (DEFAULT)[address] [place] [address] 06526 Sodium [Moles/Vol] 141.0 mmol/L Normal 136.0-144.0 [facility] Comment on above: Performed By: #### 2 969609, 3490295927, 4413072, 53668981 ####[facility] (DEFAULT)[address] [place] [address] Urea nitrogen [Mass/Vol] 6 mg/dL Low 8-26 [facility] Comment on above: Performed By: #### 2 042016, 9608773112, 6735317, 65793775 ####[facility] (DEFAULT)[address] [place] [address] Urea nitrogen/Creatinin e [Mass ratio] 11.0 mg/mg Normal 4.6-16.2 [facility] Comment on above: Performed By: #### 2 336786, 8535122286, 8220044, [id number] ####[facility] (DEFAULT)[address] [place] [id number] CBC w/ Auto Diffon 2 Erythrocyte distribution width (RBC) [Ratio] 17.9 % High 11.5-15.0 [facility] Comment on above: Performed By: #### 2 [id number], [id number], [id number] ####[facility] (DEFAULT)[address] [place] [address] Hematocrit (Bld) [Volume fraction] 26.2 % Low 33.7-40.4 [facility] Comment on above: Performed By: #### 2 [id number], [id number], [id number], [id number] ####[facility] (DEFAULT)[address] [place], [place] [id number] Hemoglobin (Bld) [Mass/Vol] 7.8 g/dL Low 11.3-15.9 [facility] Comment on above: Performed By: #### 2 [id number], [id number], [id number], [id number] ####[facility] (DEFAULT)[address] [place] [address] Instr WBC 5.2 x10 Invalid Interpretation Code [facility] Comment on above: Performed By: #### 2 [id number], [id number], [id number], [id number] ####[facility] (DEFAULT)[address] [place] [place] [address] Man Diff? Auto Normal [facility] Comment on above: Performed By: #### 2 835698, [id number], 5703213, 60156054 ####[facility] (DEFAULT)[address] [place] [address] 70440 MCH (RBC) [Entitic mass] 28 pg Normal 24-34 [facility] Comment on above: Performed By: #### 2 668983, 9227405574, 8317875, 90592031 ####[facility] (DEFAULT)[address] [place] [address] MCHC (RBC) [Mass/Vol] 30 g/dL Normal 26-37 [facility] Comment on above: Performed By: #### 2 996150, [id number], 0753973, 06604674 ####[facility] (DEFAULT)[address] [place] [address] 26864 MCV (RBC) [Entitic vol] 93 fL Normal 81-100 [facility] Comment on above: Performed By: #### 2 621956, [id number], 9651009, 35112742 ####[facility] (DEFAULT)[address] [place] [address] 14131 Platelet 291 x10 Normal 138-427 [facility] Comment on above: Performed By: #### 2 833157, 1124638697, 9702162, 24196919 ####[facility] (DEFAULT)[address] [place] [address] 41119 Platelet mean volume (Bld) [Entitic vol] 9.6 fL Normal 6.3-10.2 [facility] Comment on above: Performed By: #### 2 651941, 2223654384, 5637932, 52412377 ####[facility] (DEFAULT)[address] [place] [address] RBC 2.82 x10 Low 3.70-5.30 [facility] Comment on above: Performed By: #### 2 604591, 8167459569, 5904834, 15923873 ####[facility] (DEFAULT)[address] [place] [address] WBC 5.2 x10 Normal 3.5-10.5 [facility] Comment on above: Performed By: #### 2 265507, 4626516428, 2346228, 42322251 ####[facility] (DEFAULT)[address] [place] [address] Magnesiumon 08-11-2021 Magnesium [Mass/Vol] 1.43 mg/dL Low 1.80-2.50 [facility] Comment on above: Performed By: #### 2 174018, 2958962691, 0347361, 90208889 ####[facility] (DEFAULT)[address] [place] [address] PTH, Intact LCon 08-11-2021 PTH, Intact LC 125 pg/mL High 15-65 [facility] Comment on above: Result Comment: Perf ormed At: [facility] [address] [id number] Brenna Iyer PhD Ph:[phone] Performed By: #### 2 [id number], [id number] ####[facility] (DEFAULT)[address] [place] [address] .Auto Diff 1on 08-10-2021 Auto Costilla % 8 % Normal 1-12 [facility] Comment on above: Performed By: #### 1 [id number], 7964667901, 5969435, 94572399, 0604472, 7817441929 ####[facility] (DEFAULT)[address] [place] [address] Baso Abs# 0.0 x10 Normal 0.0-0.2 [facility] Comment on above: Performed By: #### 1 [id number], 4864791444, 2597548, 96930785, 2771477, 7351960766 ####[facility] (DEFAULT)[address] [place] [address] 08985 Basophils/100 WBC (Bld) 0.8 % Normal 0.2-2.0 [facility] Comment on above: Performed By: #### 1 278193907, 9591660413, 8996758, 56162891, 7127192, 2332487145 ####[facility] (DEFAULT)[address] [place] [address] 11672 Eos Abs# 0.2 x10 Normal 0.0-0.4 [facility] Comment on above: Performed By: #### 1 [id number], 4085012045, 7035093, 85410483, 2536277, 3834862161 ####[facility] (DEFAULT)[address] [place] [address] 42481 Eosinophils/100 WBC (Bld) 3.3 % Normal 0.9-4.0 [facility] Comment on above: Performed By: #### 1 953004411, 5097071062, 9166825, 63551581, 7227135, 6761739805 ####[facility] (DEFAULT)[address] [place] [address] 10713 Lymph Abs# 1.2 x10 Low 1.3-2.9 [facility] Comment on above: Performed By: #### 1 529133874, 5368723031, 8827518, 63928384, 7982542, 8932625802 ####[facility] (DEFAULT)[address] [place] [address] 58318 Lymphocytes/100 WBC (Bld) 24 % Normal 14-48 [facility] Comment on above: Performed By: #### 1 137256477, 7159548620, 5115226, 03229715, 2494510, 8699302181 ####[facility] (DEFAULT)[address] [place] [address] Costilla Abs# 0.4 x10 Normal 0.0-0.8 [facility] Comment on above: Performed By: #### 1 434095583, 5862285804, 7366547, 92580148, 3480789, 3617976695 ####[facility] (DEFAULT)[address] [place] [address] Neut Abs# 3.1 x10 Normal 1.5-9.2 [facility] Comment on above: Performed By: #### 1 198989448, 1694892532, 5987357, 43493476, 7603106, 1773266619 ####[facility] (DEFAULT)[address] [place] [address] Neutrophils/100 WBC (Bld) 64 % Normal 44-88 [facility] Comment on above: Performed By: #### 1 451866416, 8021940960, 9821046, 51474891, 1907525, 2852828484 ####[facility] (DEFAULT)[address] [place] [address] Anesthesia Noteon 08-10-2021 Anesthesia Note Patient: SUSAN [...] MD [Verified on: 08/10/2021 10:12 EST] Rony rOdonez MD [facility] Anesthesia Note Patient: SUSAN RENE [...] on: 08/10/2021 10:00 EST] Rony Ordonez MD [facility] Anesthesia Note Patient: SUSAN RENE Age: 65 years Sex: FEMALE : 1955 Associated Diagnoses: None Author: Rony Ordonez MD Preoperative Information Anesthesia history: Patient history: No difficult intubation, No malignant hyperthermia. Family history: No malignant hyperthermia. Review of Systems Respiratory: recent COVID positive but no symptoms at present pulmonary payne, No shortness of breath, No apnea. 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 Hysterectomy (515039396). Social History Electronic Cigarette/Vaping Assessment Electronic Cigarette [...] % Auto Lymph % 24 % Auto Costilla % 8 % Auto Eos % 3.3 % Auto Baso % 0.8 % Neut Abs# 3.1 x103/mcL Lymph Abs# 1.2 x103/mcL LOW Costilla Abs# 0.4 x103/mcL Eos Abs# 0.2 x103/mcL Baso Abs# 0.0 x103/mcL Sodium Level 142.0 mmol/L Potassium Level 3.8 mmol/L Chloride Level 105 mmol/L CO2 25 mmol/L Anion Gap 16.0 mmol/L Glucose Level 74.0 mg/dL BUN 6 mg/dL LOW Creatinine Level 0.64 mg/dL BUN/Creat Ratio 9.0 eGFR AA >60 mL/min/1.73m2 NA eGFR Non A (more content not included)... Normal [facility] CBC w/ Auto Diffon 2 Erythrocyte distribution width (RBC) [Ratio] 18.0 % High 11.5-15.0 [facility] Comment on above: Performed By: #### 1 370469105, 6603300469, 5965074, 15819489, 7162973, 8103444000 ####[facility] (DEFAULT)[address] [place] [address] 48271 Hematocrit (Bld) [Volume fraction] 25.6 % Low 33.7-40.4 [facility] Comment on above: Performed By: #### 1 915948592, 4466163260, 9463276, 26094460, 4215280, 3463375659 ####[facility] (DEFAULT)[address] [place] [address] 33661 Hemoglobin (Bld) [Mass/Vol] 7.6 g/dL Low 11.3-15.9 [facility] Comment on above: Performed By: #### 1 003121862, 8665267516, 3026461, 74992775, 3361749, 2613888579 ####[facility] (DEFAULT)[address] [place] [address] Instr WBC 4.9 x10 Invalid Interpretation Code [facility] Comment on above: Performed By: #### 1 300669946, 2356907164, 9234391, 90167501, 4388901, 6116292214 ####[facility] (DEFAULT)[address] [place] [address] 27782 Man Diff? Auto Normal [facility] Comment on above: Performed By: #### 1 137501099, 5934544633, 3039838, 09575798, 9277590, 5606479494 ####[facility] (DEFAULT)[address] [place] [address] 97800 MCH (RBC) [Entitic mass] 28 pg Normal 24-34 [facility] Comment on above: Performed By: #### 1 327153972, 3730854644, 6600506, 21179132, 9409029, 5362907219 ####[facility] (DEFAULT)[address] [place] [address] 53559 MCHC (RBC) [Mass/Vol] 30 g/dL Normal 26-37 [facility] Comment on above: Performed By: #### 1 815471126, 0856427635, 4396823, 89625513, 3705594, 6667696821 ####[facility] (DEFAULT)[address] [place] [address] 44129 MCV (RBC) [Entitic vol] 93 fL Normal 81-100 [facility] Comment on above: Performed By: #### 1 816536695, 4532172250, 3358990, 79263801, 2775928, 9384903869 ####[facility] (DEFAULT)[address] [place] [address] 01625 Platelet 345 x10 Normal 138-427 [facility] Comment on above: Performed By: #### 1 546824825, 1771380596, 1042697, 99943045, 3855054, 5912290489 ####[facility] (DEFAULT)[address] [place] [address] 01548 Platelet mean volume (Bld) [Entitic vol] 9.3 fL Normal 6.3-10.2 [facility] Comment on above: Performed By: #### 1 643839727, 5913010451, 8560523, 59158941, 7009944, 3543128456 ####[facility] (DEFAULT)[address] [place] [address] RBC 2.74 x10 Low 3.70-5.30 [facility] Comment on above: Performed By: #### 1 345123194, 0409374162, 8375843, 80011407, 9230657, 2068850229 ####[facility] (DEFAULT)[address] [place] [address] WBC 4.9 x10 Normal 3.5-10.5 [facility] Comment on above: Performed By: #### 1 515360134, 7309762511, 6341705, 05178378, 7330974, 5921851537 ####[facility] (DEFAULT)[address] [place] [address] Standardon 08-10-2021 eGFR Non AA >60 Invalid Interpretation Code [facility] Comment on above: Performed By: #### 1 908826588, 6407212912, 9551078, 63337168, 5480898, 7433609819 ####[facility] (DEFAULT)[address] [place] [address] 96797 eGFR AA >60 Invalid Interpretation Code [facility] Comment on above: Result Comment: Commercial Correspondent juanito Kidney disease could be indicated at eGFRs of less than 60 ml/min/1.73m2. Kidney Failure is indicated at less than 15 ml/min/1.73m2 Performed By: #### 1 413150912, 5967010245, 1042880, 68432717, 7707690, 7358525052 ####[facility] (DEFAULT)[address] [place] [address] 21942 Albumin [Mass/Vol] 3.3 g/dL Low 3.5-5.0 [facility] Comment on above: Performed By: #### 1 245886450, 6101773633, 9634756, 48039467, 0291020, 1773495390 ####[facility] (DEFAULT)[address] [place] [address] Albumin/Globulin [Mass ratio] 2.4 {ratio} Normal 1.4-2.6 [facility] Comment on above: Performed By: #### 1 787873725, 7589459008, 5822649, 10048296, 2029127, 2148745243 ####[facility] (DEFAULT)[address] [place] [address] Alk Phos 27 IU/L Low 32-91 [facility] Comment on above: Performed By: #### 1 187456972, 9114668661, 2336000, 68446124, 3427167, 5276839746 ####[facility] (DEFAULT)[address] [place] [address] ALT [Catalytic activity/Vol] 14.0 U/L Normal 14.0-54.0 [facility] Comment on above: Performed By: #### 1 470885877, 3032504864, 3995493, 97375157, 9686675, 1412583936 ####[facility] (DEFAULT)[address] [place] [address] Anion gap [Moles/Vol] 16.0 mmol/L Normal 5.0-19.0 [facility] Comment on above: Performed By: #### 1 965154186, 0754294189, 7541557, 62401356, 3217720, 1516901300 ####[facility] (DEFAULT)[address] [place] [address] 09521 AST [Catalytic activity/Vol] 23 U/L Normal 15-41 [facility] Comment on above: Performed By: #### 1 837677562, 8833378386, 6718327, 95114849, 0026446, 6097196890 ####[facility] (DEFAULT)[address] [place] [address] Bili Total 0.3 mg/dL Normal 0.3-1.2 [facility] Comment on above: Performed By: #### 1 543075050, 3551241604, 0237693, 94913609, 8141431, 8222897297 ####[facility] (DEFAULT)[address] [place] [address] 82240 Calcium [Mass/Vol] 6.4 mg/dL Low 8.9-10.3 [facility] Comment on above: Performed By: #### 1 841301678, 3712797998, 2258910, 12053182, 1488337, 3170457958 ####[facility] (DEFAULT)[address] [place] [address] 87604 Chloride [Moles/Vol] 105 mmol/L Normal 101-111 [facility] Comment on above: Performed By: #### 1 229236868, 0863895590, 0240710, 64195861, 4026804, 4234839316 ####[facility] (DEFAULT)[address] [place] [address] 81887 CO2 [Moles/Vol] 25 mmol/L Normal 21-32 [facility] Comment on above: Performed By: #### 1 343451045, 3906641991, 0396495, 11648347, 6383280, 6604113403 ####[facility] (DEFAULT)[address] [place] [address] 88527 Creatinine [Mass/Vol] 0.64 mg/dL Normal 0.60-1.30 [facility] Comment on above: Performed By: #### 1 243383909, 0089085318, 9408551, 79001697, 8692789, 8469788814 ####[facility] (DEFAULT)[address] [place] [address] 34770 Globulin (S) [Mass/Vol] 1.4 g/dL Low 1.5-4.3 [facility] Comment on above: Performed By: #### 1 982968991, 7327393816, 0031513, 65094665, 8574048, 4587975762 ####[facility] (DEFAULT)[address] [place] [address] 31718 Glucose [Mass/Vol] 74.0 mg/dL Normal 74.0-118.0 [facility] Comment on above: Performed By: #### 1 076494037, 7805030384, 5232672, 10829224, 7969621, 8038253856 ####[facility] (DEFAULT)[address] [place] [address] 36359 Osmolality 279 mOsm/L Invalid Interpretation Code [facility] Comment on above: Performed By: #### 1 469769268, 4299912785, 2174409, 34949199, 3645640, 4783086924 ####[facility] (DEFAULT)[address] [place] [address] 61766 Potassium [Moles/Vol] 3.8 mmol/L Normal 3.6-5.1 [facility] Comment on above: Performed By: #### 1 856448379, 8218896883, 5410704, 36377879, 7162403, 8211891376 ####[facility] (DEFAULT)[address] [place] [address] 17537 Protein [Mass/Vol] 4.7 g/dL Low 6.5-8.1 [facility] Comment on above: Performed By: #### 1 257186069, 4940639356, 1045345, 86200396, 6657894, 0606847255 ####[facility] (DEFAULT)[address] [place] [address] 35442 Sodium [Moles/Vol] 142.0 mmol/L Normal 136.0-144.0 [facility] Comment on above: Performed By: #### 1 787285075, 4633631790, 9690937, 82179983, 4916364, 6395795939 ####[facility] (DEFAULT)[address] [place] [address] 38528 Urea nitrogen [Mass/Vol] 6 mg/dL Low 8-26 [facility] Comment on above: Performed By: #### 1 078747675, 1905702259, 7595160, 52519158, 2400174, 3261858342 ####[facility] (DEFAULT)[address] [place] [address] 11335 Urea nitrogen/Creatinin e [Mass ratio] 9.0 mg/mg Normal 4.6-16.2 [facility] Comment on above: Performed By: #### 1 838377003, 2547499008, 1034718, 60304822, 2728796, 4839343620 ####[facility] (DEFAULT)[address] [place] [address] 98012 Extra Greyon 08-10-2021 Tube Collected Yes Invalid Interpretation Code [facility] Comment on above: Performed By: #### 2 005198526, 74149366 ####[facility] (DEFAULT)[address] [place] [address] 10354 Extra Redon 08-10-2021 Tube Collected Yes Invalid Interpretation Code [facility] Comment on above: Performed By: #### 1 921619049, 3162149782, 2586478, 80608123, 3771759, 2918226472 ####[facility] (DEFAULT)[address] [place] [address] 81243 MAGR Intraoperative Recordon 08-10-2021 MAGR Intraoperative Record [facility] Intra-Op Record Summary Primary Physician: Noe Reed MD Finalized Date/Time: 08/10/21 10:21:22 Pt. Name: ASHVIN RENE /Sex: 1955 FEMALE Med Rec #: [id number] Physician: Norman Hughes MD Financial #: [id number] Pt. Type: I Room/Bed: [facility] [place] Admit/Disch: 08/06/21 17:10:50 - Institution: Case Times [...] Role Performed Surgeon - Primary Anesthesiologist of De Icer Installer Record Time In 08/10/21 09:00:00 08/10/21 09:00:00 08/10/21 09:00:00 Time Out 08/10/21 10:01:00 08/10/21 10:01:00 08/10/21 10:01:00 Procedure Esophagogastroduodenosco Esophagogastroduodenosco Esophagogastroduodenosco py and Colonosco py and Colonosco py and Colonosco Last Modified By: Helena Sandoval 08/10/21 Helena Sandoval 08/10/21 Helena Sandoval 08/10/21 10:19:10 10:19:10 10:19:10 Entry 4 Entry 5 Case Attendee Mandy Perdomo RN, Regina CST Role Performed De Icer Installer Scrub Personnel Time In 08/10/21 09:00:00 08/10/21 [...] injury r (more content not included)... Normal [facility] 08-10-2021 Magnesium [Mass/Vol] 1.50 mg/dL Low 1.80-2.50 [facility] Comment on above: Performed By: #### 1 [id number], 7444766077, 7401657, 82683646, 3092213, 7515219106 ####[facility] (DEFAULT)[address] [place] [address] Nutrition Noteon 08-10-2021 Nutrition Note No new wts, Per inta ke records, Pt intake ranging 25-100%, eating better for lunch. Pt also taking supplements well. These appear to have been discontinued for scheduled colonscopy/EGD this am and not resumed. Per MD notes, tests unremarkable. With improving intake avg >/+ 50% of most meals, will hold off from re-adding Ensure. Will continue to monitor. [facility] Progress Note - Nurseon 07-15 Progress Note - Nurse pt returns from recovery. alert and drowsy. iv intact. pt able to tolerate water with no issues. denies pain. report received from holly perdomo RN. will continue to monitor. [Electronically Signed on: 08/10/2021 11:35 EST] Joslyn Roth RN [Verified on: 08/10/2021 11:35 EST] Joslyn Roth RN [facility] Telemetry Stripson Telemetry Strips [id number]#[id number] [facility] Telemetry Strips [id number]#1.00OTGTIFF [facility] .Auto Diff 1on 08-09-2021 Auto Costilla % 10 % Normal 07-25 [facility] Comment on above: Performed By: #### 2 452022, 7410839227, 7735027, 62808549 ####[facility] (DEFAULT)[address] [place] [address] 45705 Baso Abs# 0.0 x10 Normal 0.0-0.2 [facility] Comment on above: Performed By: #### 2 104958, 5746082141, 6514493, 61453404 ####[facility] (DEFAULT)[address] [place] [address] 08254 Basophils/100 WBC (Bld) 0.6 % Normal 0.2-2.0 [facility] Comment on above: Performed By: #### 2 961041, 5346920576, 5397512, 96535576 ####[facility] (DEFAULT)[address] [place] [address] 41695 Eos Abs# 0.2 x10 Normal 0.0-0.4 [facility] Comment on above: Performed By: #### 2 000589, 3471575056, 8992382, 27282874 ####[facility] (DEFAULT)[address] [place] [address] 14110 Eosinophils/100 WBC (Bld) 3.3 % Normal 0.9-4.0 [facility] Comment on above: Performed By: #### 2 687595, 0177176953, 2626390, 07813941 ####[facility] (DEFAULT)[address] [place] [address] 50068 Lymph Abs# 1.2 x10 Low 1.3-2.9 [facility] Comment on above: Performed By: #### 2 195214, 5615080670, 5984018, 32605701 ####[facility] (DEFAULT)[address] [place] [address] 83238 Lymphocytes/100 WBC (Bld) 21 % Normal 14-48 [facility] Comment on above: Performed By: #### 2 563589, 2585936173, 1387596, 13644533 ####[facility] (DEFAULT)[address] [place] [address] 92439 Costilla Abs# 0.5 x10 Normal 0.0-0.8 [facility] Comment on above: Performed By: #### 2 123514, 9872970669, 0450207, 75098300 ####[facility] (DEFAULT)[address] [place] [address] 86123 Neut Abs# 3.6 x10 Normal 1.5-9.2 [facility] Comment on above: Performed By: #### 2 125605, 2167407350, 0807819, 82637807 ####[facility] (DEFAULT)[address] [place] [address] Neutrophils/100 WBC (Bld) 65 % Normal 44-88 [facility] Comment on above: Performed By: #### 2 389049, 3490156506, 7851629, 17854382 ####[facility] (DEFAULT)[address] [place] [address] Standardon 08-09-2021 eGFR Non AA >60 Invalid Interpretation Code [facility] Comment on above: Performed By: #### 2 132211, 7106613389, 8311204, 81705238 ####[facility] (DEFAULT)[address] [place] [address] eGFR AA >60 Invalid Interpretation Code [facility] Comment on above: Result Comment: Commercial Correspondent juanito Kidney disease could be indicated at eGFRs of less than 60 ml/min/1.73m2. Kidney Failure is indicated at less than 15 ml/min/1.73m2 Performed By: #### 2 501581, 5780059605, 3310352, 38150932 ####[facility] (DEFAULT)[address] [place] [address] 19019 Anion gap [Moles/Vol] 16.0 mmol/L Normal 5.0-19.0 [facility] Comment on above: Performed By: #### 2 954969, 4455607911, 3316612, 79214189 ####[facility] (DEFAULT)[address] [place] [address] 24953 Calcium [Mass/Vol] 6.2 mg/dL Low 8.9-10.3 [facility] Comment on above: Performed By: #### 2 859432, 1326761371, 3336997, 91127793 ####[facility] (DEFAULT)[address] [place] [address] 52609 Chloride [Moles/Vol] 107 mmol/L Normal 101-111 [facility] Comment on above: Performed By: #### 2 823088, 6387284661, 3382938, 21062815 ####[facility] (DEFAULT)[address] [place] [address] 00486 CO2 [Moles/Vol] 24 mmol/L Normal 21-32 [facility] Comment on above: Performed By: #### 2 135202, 4067571979, 4997272, 15784005 ####[facility] (DEFAULT)[address] [place] [address] 53852 Creatinine [Mass/Vol] 0.72 mg/dL Normal 0.60-1.30 [facility] Comment on above: Performed By: #### 2 220207, 1435021109, 3457073, 84164263 ####[facility] (DEFAULT)[address] [place] [address] 45293 Glucose [Mass/Vol] 79.0 mg/dL Normal 74.0-118.0 [facility] Comment on above: Performed By: #### 2 503828, 5736931184, 9768303, 53039863 ####[facility] (DEFAULT)[address] [place] [address] 20836 Osmolality 282 mOsm/L Invalid Interpretation Code [facility] Comment on above: Performed By: #### 2 966722, 6105825855, 7902800, 85465016 ####[facility] (DEFAULT)[address] [place] [address] 22909 Potassium [Moles/Vol] 3.9 mmol/L Normal 3.6-5.1 [facility] Comment on above: Performed By: #### 2 [id number], [id number], [id number], [id number] ####[facility] (DEFAULT)[address] [place] [address] 55793 Sodium [Moles/Vol] 143.0 mmol/L Normal 136.0-144.0 [facility] Comment on above: Performed By: #### 2 [id number], [id number], [id number], [id number] ####[facility] (DEFAULT)[address] [place] [address] Urea nitrogen [Mass/Vol] 8 mg/dL Normal 8-26 [facility] Comment on above: Performed By: #### 2 [id number], [id number], [id number], [id number] ####[facility] (DEFAULT)[address] [place] [address] Urea nitrogen/Creatinin e [Mass ratio] 11.0 mg/mg Normal 4.6-16.2 [facility] Comment on above: Performed By: #### 2 [id number], [id number], [id number], [id number] ####[facility] (DEFAULT)[address] [place] [address] CBC w/ Auto Diffon Erythrocyte distribution width (RBC) [Ratio] 17.9 % High 11.5-15.0 [facility] Comment on above: Performed By: #### 2 [id number], [id number], 9290247, 95211465 ####[facility] (DEFAULT)[address] [place] [address] Hematocrit (Bld) [Volume fraction] 24.1 % Low 33.7-40.4 [facility] Comment on above: Performed By: #### 2 925138, 2660351245, 0338354, 59231908 ####[facility] (DEFAULT)[address] [place] [address] Hemoglobin (Bld) [Mass/Vol] 7.2 g/dL Low 11.3-15.9 [facility] Comment on above: Result Comment: RIGO barrientos pt received 1 unit on 08/06/21 Performed By: #### 2 234804, [id number], 8124656, 98978754 ####[facility] (DEFAULT)[address] [place] [address] Instr WBC 5.4 x10 Invalid Interpretation Code [facility] Comment on above: Performed By: #### 2 909619, [id number], 7789413, 81547776 ####[facility] (DEFAULT)[address] [place] [address] 30057 Man Diff? Auto Normal [facility] Comment on above: Performed By: #### 2 036123, [id number], 9289394, 18357967 ####[facility] (DEFAULT)[address] [place] [address] 22024 MCH (RBC) [Entitic mass] 28 pg Normal 24-34 [facility] Comment on above: Performed By: #### 2 209125, [id number], 5890222, 07918605 ####[facility] (DEFAULT)[address] [place] [address] MCHC (RBC) [Mass/Vol] 30 g/dL Normal 26-37 [facility] Comment on above: Performed By: #### 2 353862, [id number], 0622276, 76451144 ####[facility] (DEFAULT)[address] [place] [address] 88433 MCV (RBC) [Entitic vol] 94 fL Normal 81-100 [facility] Comment on above: Performed By: #### 2 294857, [id number], 5627804, 84323694 ####[facility] (DEFAULT)[address] [place] [address] 91970 Platelet 336 x10 Normal 138-427 [facility] Comment on above: Performed By: #### 2 364209, 7308436338, 0789335, 26297035 ####[facility] (DEFAULT)[address] [place] [address] 11068 Platelet mean volume (Bld) [Entitic vol] 9.5 fL Normal 6.3-10.2 [facility] Comment on above: Performed By: #### 2 533642, 2734063029, 7177654, 89804976 ####[facility] (DEFAULT)[address] [place] [address] 25430 RBC 2.57 x10 Low 3.70-5.30 [facility] Comment on above: Performed By: #### 2 753227, 4636676732, 3347296, 75233456 ####[facility] (DEFAULT)[address] [place] [address] WBC 5.4 x10 Normal 3.5-10.5 [facility] Comment on above: Performed By: #### 2 197294, 9805210408, 7434561, 94891302 ####[facility] (DEFAULT)[address] [place] [address] 02539 Cortisol LCon 08-09-2021 Cortisol LC 15.5 ug/dL Invalid Interpretation Code [facility] Comment on above: Result Comment: Quinton isol AM 6.2 - 19.4 Cortisol PM 2.3 - 11.9 Performed At: [facility] [address] [id number] Brenna Iyer PhD Ph:[phone] Performed By: #### 7 379596, 89482941, 5350384, [id number] #### [facility] (DEFAULT) [address] [place] [address] Lab - AP Resultson 2 Lab - AP Results [id number]#1.00OTGTIFF Normal [facility] Magnesiumon 08-09-2021 Magnesium [Mass/Vol] 1.56 mg/dL Low 1.80-2.50 [facility] Comment on above: Performed By: #### 2 905775, [id number], 6988978, 42934969 ####[facility] (DEFAULT)[address] [place] [address] Telemetry Stripson 2 Telemetry Strips [id number]#1.00OTGTIFF Normal [facility] .Auto Diff 1on 08-08-2021 Auto Costilla % 8 % Normal -12 [facility] Comment on above: Performed By: #### 7 715389, 59572768, 2635397, [id number] #### [facility] (DEFAULT) [address] [place] [address] Baso Abs# 0.0 x10 Normal 0.0-0.2 [facility] Comment on above: Performed By: #### 7 970683, 82107740, 1082166, 3830487583 #### [facility] (DEFAULT) [address] [place] [address] 77553 Basophils/100 WBC (Bld) 0.8 % Normal 0.2-2.0 [facility] Comment on above: Performed By: #### 7 930465, 36083601, 0242776, 7893263431 #### [facility] (DEFAULT) [address] [place] [address] Eos Abs# 0.2 x10 Normal 0.0-0.4 [facility] Comment on above: Performed By: #### 7 586458, 72547661, 1103241, 0324270245 #### [facility] (DEFAULT) [address] [place] [address] Eosinophils/100 WBC (Bld) 2.6 % Normal 0.9-4.0 [facility] Comment on above: Performed By: #### 7 998522, 11694893, 6079789, 3707811167 #### [facility] (DEFAULT) [address] [place] [address] Lymph Abs# 1.8 x10 Normal 1.3-2.9 [facility] Comment on above: Performed By: #### 7 157295, 18839620, 5904708, [id number] #### [facility] (DEFAULT) [address] [place] [address] 41862 Lymphocytes/100 WBC (Bld) 27 % Normal 14-48 [facility] Comment on above: Performed By: #### 7 387978, 31374771, 1605512, 2299051649 #### [facility] (DEFAULT) [address] [place] [address] Costilla Abs# 0.5 x10 Normal 0.0-0.8 [facility] Comment on above: Performed By: #### 7 176287, 32641641, 5883755, 2657437133 #### [facility] (DEFAULT) [address] [place] [address] Neut Abs# 4.0 x10 Normal 1.5-9.2 [facility] Comment on above: Performed By: #### 7 410345, 59172791, 3259002, 3646917547 #### [facility] (DEFAULT) [address] [place] [address] Neutrophils/100 WBC (Bld) 62 % Normal 44-88 [facility] Comment on above: Performed By: #### 7 051188, 10098860, 0355421, 0838974441 #### [facility] (DEFAULT) [address] [place] [address] Ambulance Noteon 08-08-2021 Ambulance Note [id number]#1.00OTGTIFF Normal [facility] BMP Standardon 08-08-2021 eGFR Non AA >60 Invalid Interpretation Code [facility] Comment on above: Performed By: #### 7 682501, 13400693, 1536706, 0357600783 #### [facility] (DEFAULT) [address] [place] [address] eGFR AA >60 Invalid Interpretation Code [facility] Comment on above: Result Comment: Commercial Correspondent juanito Kidney disease could be indicated at eGFRs of less than 60 ml/min/1.73m2. Kidney Failure is indicated at less than 15 ml/min/1.73m2 Performed By: #### 7 669933, 49778397, 3431381, 9393473640 #### [facility] (DEFAULT) [address] [place] [address] 34521 Anion gap [Moles/Vol] 15.0 mmol/L Normal 5.0-19.0 [facility] Comment on above: Performed By: #### 7 879347, 15481397, 9159471, 4529751643 #### [facility] (DEFAULT) [address] [place] [address] Calcium [Mass/Vol] 5.9 mg/dL Critically abnormal 8.9-10.3 [facility] Comment on above: Result Comment: Crit ical CALC 5.9 result called and read back ok to: DEMETRA DAS RN 2S at: 05:25:23 08/08/2021 by: SYBIL Performed By: #### 7 124470, 46086974, 5105838, 3085048854 #### [facility] (DEFAULT) [address] [place] [address] 62143 Chloride [Moles/Vol] 109 mmol/L Normal 101-111 [facility] Comment on above: Performed By: #### 7 325296, 98456226, 3149521, 1469674644 #### [facility] (DEFAULT) [address] [place] [address] 88013 CO2 [Moles/Vol] 20 mmol/L Low 21-32 [facility] Comment on above: Performed By: #### 7 229838, 48679255, 1217174, 5886837120 #### [facility] (DEFAULT) [address] [place] [address] 83017 Creatinine [Mass/Vol] 0.68 mg/dL Normal 0.60-1.30 [facility] Comment on above: Performed By: #### 7 869104, 85136181, 9865040, [id number] #### [facility] (DEFAULT) [address] [place] [address] 89444 Glucose [Mass/Vol] 82.0 mg/dL Normal 74.0-118.0 [facility] Comment on above: Performed By: #### 7 221640, 70409349, 9072771, 3725542406 #### [facility] (DEFAULT) [address] [place] [address] 12209 Osmolality 277 mOsm/L Invalid Interpretation Code [facility] Comment on above: Performed By: #### 7 803098, 53381978, 5888536, 0460640665 #### [facility] (DEFAULT) [address] [place] [address] 96548 Potassium [Moles/Vol] 3.6 mmol/L Normal 3.6-5.1 [facility] Comment on above: Performed By: #### 7 597929, 57981558, 9865643, 5048251354 #### [facility] (DEFAULT) [address] [place] [address] 43966 Sodium [Moles/Vol] 140.0 mmol/L Normal 136.0-144.0 [facility] Comment on above: Performed By: #### 7 617216, 84157252, 8043292, 8432500720 #### [facility] (DEFAULT) [address] [place] [address] 67696 Urea nitrogen [Mass/Vol] 9 mg/dL Normal 8-26 [facility] Comment on above: Performed By: #### 7 619978, 30207658, 5464989, 9639919163 #### [facility] (DEFAULT) [address] [place] [address] Urea nitrogen/Creatinin e [Mass ratio] 13.0 mg/mg Normal 4.6-16.2 [facility] Comment on above: Performed By: #### 7 985818, 81706988, 7019649, 4064937315 #### [facility] (DEFAULT) [address] [place] [address] CBC w/ Auto Diffon 2 Erythrocyte distribution width (RBC) [Ratio] 18.4 % High 11.5-15.0 [facility] Comment on above: Performed By: #### 1 625311144, 2291567, 05208010, 0527984 #### [facility] (DEFAULT) [address] [place] [address] Hematocrit (Bld) [Volume fraction] 31.6 % Low 33.7-40.4 [facility] Comment on above: Performed By: #### 1 206251358, 6359695, 91305773, 9731131 #### [facility] (DEFAULT) [address] [place] [address] 78448 Hemoglobin (Bld) [Mass/Vol] 9.6 g/dL Low 11.3-15.9 [facility] Comment on above: Performed By: #### 1 206899912, 5967665, 26896799, 6118059 #### [facility] (DEFAULT) [address] [place] [address] Instr WBC 6.5 x10 Invalid Interpretation Code [facility] Comment on above: Performed By: #### 1 465014853, 5661984, 53476118, 4210930 #### [facility] (DEFAULT) [address] [place] [address] Man Diff? Auto Normal [facility] Comment on above: Performed By: #### 1 766560095, 8081923, 67803935, 7614020 #### [facility] (DEFAULT) [address] [place] [address] 02024 MCH (RBC) [Entitic mass] 28 pg Normal 24-34 [facility] Comment on above: Performed By: #### 1 904217327, 6675345, 54379466, 9695758 #### [facility] (DEFAULT) [address] [place] [address] 65351 MCHC (RBC) [Mass/Vol] 30 g/dL Normal 26-37 [facility] Comment on above: Performed By: #### 1 842969837, 5915925, 67251227, 2937922 #### [facility] (DEFAULT) [address] [place] [address] MCV (RBC) [Entitic vol] 92 fL Normal 81-100 [facility] Comment on above: Performed By: #### 1 507918834, 3336217, 50902826, 4713301 #### [facility] (DEFAULT) [address] [place] [address] Platelet 450 x10 High 138-427 [facility] Comment on above: Performed By: #### 1 024095575, 7662974, 26754584, 1930217 #### [facility] (DEFAULT) [address] [place] [address] Platelet mean volume (Bld) [Entitic vol] 9.4 fL Normal 6.3-10.2 [facility] Comment on above: Performed By: #### 1 457138096, 7139463, 20640287, 2151072 #### [facility] (DEFAULT) [address] [place] [address] RBC 3.45 x10 Low 3.70-5.30 [facility] Comment on above: Performed By: #### 1 479381306, 7289012, 38117990, 6587062 #### [facility] (DEFAULT) [address] [place] [address] 23713 WBC 6.5 x10 Normal 3.5-10.5 [facility] Comment on above: Performed By: #### 1 438438908, 8208460, 07003495, 7139632 #### [facility] (DEFAULT) [address] [place] [address] 80473 CRPon 08-08-2021 CRP 0.6 mg/dL High <=0.5 [facility] Comment on above: Performed By: #### 7 023143, 04910100, 0848944, 0517968601 #### [facility] (DEFAULT) [address] [place] [address] 09212 Haptoglobin LCon 08-08-2021 Haptoglobin LC 162 mg/dL Invalid Interpretation Code 26-013 [facility] Comment on above: Result Comment: Perf ormed At: [facility] [address] [id number] Brenna Iyer PhD Ph:[phone] Performed By: #### 1 207125378, 3463708, 89436505, 7540922 #### [facility] (DEFAULT) [address] [place] [address] 21141 Magnesiumon 08-08-2021 Magnesium [Mass/Vol] 1.47 mg/dL Low 1.80-2.50 [facility] Comment on above: Performed By: #### 7 031442, 52807509, 1986003, 3818908964 #### [facility] (DEFAULT) [address] [place] [address] 11054 Nutrition Noteon 08-08-2021 SARS-CoV-2 (COVID-19) RNA JESSICA+probe [...] Ensure Compact BIDWM and monitor acceptance. Normal [facility] Telemetry Stripson 2 Telemetry Strips [id number]#1.00OTGTIFF Normal [facility] .Auto Diff 108-07-2021 Auto Costilla % 8 % Normal 07-25 [facility] Comment on above: Performed By: #### 1 918670297, 8663163, 73556629, 9914497 #### [facility] (DEFAULT) [address] [place] [address] 41837 Baso Abs# 0.0 x10 Normal 0.0-0.2 [facility] Comment on above: Performed By: #### 1 879684785, 9198870, 64098761, 5236455 #### [facility] (DEFAULT) [address] [place] [address] 70888 Basophils/100 WBC (Bld) 0.6 % Normal 0.2-2.0 [facility] Comment on above: Performed By: #### 1 259386586, 9195755, 29510683, 2895633 #### [facility] (DEFAULT) [address] [place] [address] 64663 Eos Abs# 0.1 x10 Normal 0.0-0.4 [facility] Comment on above: Performed By: #### 1 369979174, 9166625, 16740942, 1011002 #### [facility] (DEFAULT) [address] [place] [address] 17769 Eosinophils/100 WBC (Bld) 1.3 % Normal 0.9-4.0 [facility] Comment on above: Performed By: #### 1 872442169, 5354810, 52144207, 1068649 #### [facility] (DEFAULT) [address] [place] [address] 62123 Lymph Abs# 1.6 x10 Normal 1.3-2.9 [facility] Comment on above: Performed By: #### 1 257045745, 0010851, 18418383, 9953320 #### [facility] (DEFAULT) [address] [place] [address] Lymphocytes/100 WBC (Bld) 24 % Normal 14-48 [facility] Comment on above: Performed By: #### 1 302748992, 0753907, 81340725, 8596633 #### [facility] (DEFAULT) [address] [place] [address] Costilla Abs# 0.6 x10 Normal 0.0-0.8 [facility] Comment on above: Performed By: #### 1 985941132, 7468720, 57228133, 9773361 #### [facility] (DEFAULT) [address] [place] [address] Neut Abs# 4.4 x10 Normal 1.5-9.2 [facility] Comment on above: Performed By: #### 1 623921560, 2912638, 01243565, 7574895 #### [facility] (DEFAULT) [address] [place] [address] Neutrophils/100 WBC (Bld) 65 % Normal 44-88 [facility] Comment on above: Performed By: #### 1 053407542, 8342832, 61973979, 6160738 #### [facility] (DEFAULT) [address] [place] [address] CBC w/ Auto Diffon 2 Erythrocyte distribution width (RBC) [Ratio] 18.4 % High 11.5-15.0 [facility] Comment on above: Performed By: #### 1 888797681, 9597267, 96456642, 9717036 #### [facility] (DEFAULT) [address] [place] [address] Hematocrit (Bld) [Volume fraction] 33.1 % Low 33.7-40.4 [facility] Comment on above: Performed By: #### 1 394063759, 5474247, 09722697, 7589809 #### [facility] (DEFAULT) [address] [place] [address] 60394 Hemoglobin (Bld) [Mass/Vol] 9.9 g/dL Low 11.3-15.9 [facility] Comment on above: Result Comment: Charo ent received 1 unit of PRBC's on 08/06/21 Performed By: #### 1 793406425, 0702351, 68054404, 4749017 #### [facility] (DEFAULT) [address] [place] [address] 86311 Instr WBC 6.7 x10 Invalid Interpretation Code [facility] Comment on above: Performed By: #### 1 126791205, 2268071, 08658175, 5379273 #### [facility] (DEFAULT) [address] [place] [address] 27887 Man Diff? Auto Normal [facility] Comment on above: Performed By: #### 1 797039356, 5974421, 91543989, 6231796 #### [facility] (DEFAULT) [address] [place] [address] 24063 MCH (RBC) [Entitic mass] 28 pg Normal 24-34 [facility] Comment on above: Performed By: #### 1 520771705, 3574298, 71665674, 4261712 #### [facility] (DEFAULT) [address] [place] [address] 02184 MCHC (RBC) [Mass/Vol] 30 g/dL Normal 26-37 [facility] Comment on above: Performed By: #### 1 519271107, 4935366, 32164504, 2186946 #### [facility] (DEFAULT) [address] [place] [address] 19133 MCV (RBC) [Entitic vol] 92 fL Normal 81-100 [facility] Comment on above: Performed By: #### 1 399691337, 8475888, 42651081, 7391722 #### [facility] (DEFAULT) [address] [place] [address] 22034 Platelet 515 x10 High 138-427 [facility] Comment on above: Performed By: #### 1 463956663, 8154779, 35839520, 1553874 #### [facility] (DEFAULT) [address] [place] [address] 56490 Platelet mean volume (Bld) [Entitic vol] 9.0 fL Normal 6.3-10.2 [facility] Comment on above: Performed By: #### 1 656603608, 7809607, 76657336, 1341040 #### [facility] (DEFAULT) [address] [place] [address] 45361 RBC 3.60 x10 Low 3.70-5.30 [facility] Comment on above: Performed By: #### 1 821445446, 4034918, 95928529, 1986171 #### [facility] (DEFAULT) [address] [place] [address] 54888 WBC 6.7 x10 Normal 3.5-10.5 [facility] Comment on above: Performed By: #### 1 717460712, 5372915, 35733947, 4698113 #### [facility] (DEFAULT) [address] [place] [address] 46202 CMP Standardon 08-07-2021 Albumin [Mass/Vol] 1.6 g/dL Low 3.5-5.0 [facility] Comment on above: Order Comment: [...] blood work. CJ Performed By: #### 1 847872376, 5703787, 18380916, 3696025 #### [facility] (DEFAULT) [address] [place] [address] 30661 Albumin/Globulin [Mass ratio] 0.7 {ratio} Low 1.4-2.6 [facility] Comment on above: Order Comment: I [...] blood work. CJ Performed By: #### 1 878965690, 4476537, 44825064, 4955307 #### [facility] (DEFAULT) [address] [place] [address] 42581 Alk Phos 48 IU/L Normal 32-91 [facility] Comment on above: Order Comment: I [...] blood work. CJ Performed By: #### 1 713133641, 7375938, 95433789, 7665053 #### [facility] (DEFAULT) [address] [place] [address] 76892 ALT [Catalytic activity/Vol] 21.0 U/L Normal 14.0-54.0 [facility] Comment on above: Order Comment: I [...] blood work. CJ Performed By: #### 1 419055658, 6245037, 41821988, 5933905 #### [facility] (DEFAULT) [address] [place] [address] 89343 Anion gap [Moles/Vol] 14.0 mmol/L Normal 5.0-19.0 [facility] Comment on above: Order Comment: I [...] blood work. CJ Performed By: #### 1 902273980, 1359206, 48114454, 7508257 #### [facility] (DEFAULT) [address] [place] [address] 86893 AST [Catalytic activity/Vol] 26 U/L Normal 15-41 [facility] Comment on above: Order Comment: I [...] blood work. CJ Performed By: #### 1 832908586, 4034079, 50021231, 1088176 #### [facility] (DEFAULT) [address] [place] [address] 03879 Bili Total 0.2 mg/dL Low 0.3-1.2 [facility] Comment on above: Order Comment: I [...] blood work. CJ Performed By: #### 1 081369250, 9612829, 04900510, 1254584 #### [facility] (DEFAULT) [address] [place] [address] 18350 Calcium [Mass/Vol] 5.9 mg/dL Critically abnormal 8.9-10.3 [facility] Comment on above: Order Comment: I [...] tomlinson Called To Shiloh OBRIEN 2S By [facility] And Read Back For Confirmation On 08/07/2021 09:25:59 EST. Performed By: #### 1 856640010, 3707914, 84882934, 6862157 #### [facility] (DEFAULT) [address] [place] [address] 03181 Chloride [Moles/Vol] 108 mmol/L Normal 101-111 [facility] Comment on above: Order Comment: I [...] blood work. CJ Performed By: #### 1 351482137, 8302492, 08085205, 0592871 #### [facility] (DEFAULT) [address] [place] [address] 20830 CO2 [Moles/Vol] 21 mmol/L Normal 21-32 [facility] Comment on above: Order Comment: I [...] blood work. CJ Performed By: #### 1 755573036, 7248006, 95646753, 7717849 #### [facility] (DEFAULT) [address] [place] [address] 82620 Creatinine [Mass/Vol] 0.61 mg/dL Normal 0.60-1.30 [facility] Comment on above: Order Comment: I [...] blood work. CJ Performed By: #### 1 502624368, 9090522, 98031111, 9095785 #### [facility] (DEFAULT) [address] [place] [address] 16616 Globulin (S) [Mass/Vol] 2.3 g/dL Normal 1.5-4.3 [facility] Comment on above: Order Comment: I [...] blood work. CJ Performed By: #### 1 859269686, 7785088, 59523525, 8985999 #### [facility] (DEFAULT) [address] [place] [address] 36798 Glucose [Mass/Vol] 79.0 mg/dL Normal 74.0-118.0 [facility] Comment on above: Order Comment: [...] blood work. CJ Performed By: #### 1 901450608, 3623599, 92357939, 3231818 #### [facility] (DEFAULT) [address] [place] [address] 71520 Osmolality 277 mOsm/L Invalid Interpretation Code [facility] Comment on above: Order Comment: I [...] blood work. CJ Performed By: #### 1 290337050, 6154430, 74406669, 8076766 #### [facility] (DEFAULT) [address] [place] [address] 85254 Potassium [Moles/Vol] 3.2 mmol/L Low 3.6-5.1 [facility] Comment on above: Order Comment: I [...] IV T herapy Performed By: #### 1 050975618, 3265579, 19577208, 1911694 #### [facility] (DEFAULT) [address] [place] [address] 14374 Protein [Mass/Vol] 3.9 g/dL Low 6.5-8.1 [facility] Comment on above: Order Comment: [...] blood work. CJ Performed By: #### 1 600355541, 6945629, 09811931, 4842695 #### [facility] (DEFAULT) [address] [place] [address] 56075 Sodium [Moles/Vol] 140.0 mmol/L Normal 136.0-144.0 [facility] Comment on above: Order Comment: I [...] blood work. CJ Performed By: #### 1 404940948, 0774994, 28474189, 6871741 #### [facility] (DEFAULT) [address] [place] [address] 90423 Urea nitrogen [Mass/Vol] 8 mg/dL Normal 8-26 [facility] Comment on above: Order Comment: I [...] blood work. CJ Performed By: #### 1 396707421, 5597972, 64502190, 0865978 #### [facility] (DEFAULT) [address] [place] [address] Urea nitrogen/Creatinin e [Mass ratio] 13.0 mg/mg Normal 4.6-16.2 [facility] Comment on above: Order Comment: I [...] blood work. CJ Performed By: #### 1 995487251, 4375724, 26076813, 7814562 #### [facility] (DEFAULT) [address] [place] [address] 35533 eGFR Non AA >60 Invalid Interpretation Code [facility] Comment on above: Order Comment: I [...] blood work. CJ Performed By: #### 1 677382410, 6987582, 47799030, 6436493 #### [facility] (DEFAULT) [address] [place] [address] [id number] eGFR AA >60 Invalid Interpretation Code [facility] Comment on above: Order Comment: I [...] ALL 2am blood work. CJ Result Comment: Commercial Correspondent juanito Kidney disease could be indicated at eGFRs of less than 60 ml/min/1.73m2. Kidney Failure is indicated at less than 15 ml/min/1.73m2 Performed By: #### 1 [id number] #### [facility] (DEFAULT) [address] [place] [id number] Consent Formson 08-07-2021 Consent Forms [id number] Normal [facility] ED Clinical Summaryon 2021 ED Clinical Summary [facility] - Emergency Department [address] [place], [place] [id number] ED Clinical Summary PERSON INFORMATION Name: ASHVIN RENE Age: 65 Years Sex: FEMALE : 1955 MRN: Acct#: Visit Reason: General medical; ANEMIA, ELEVATED TROPONIN Arrival: 08/06/2021 17:10:50 Discharge: LOS: 000 05:17 Check In: 08/06/2021 17:10:50 Checkout:08/06/2021 22:27:57 Address: [address] [place] [address] PCP: TUSHAR SOLANO JR. PROVIDER INFORMATION Provider Role Assigned Unassigned Danni Souza ED PA 08/06/2021 17:12:50 08/06/2021 17:16:23 EVERTON NEGRON ED PA 08/06/2021 17:18:50 Jessica Al GAS BLENDER Nurse 08/06/2021 17:45:27 08/06/2021 19:14:08 Gely Adan GAS BLENDER Nurse 08/06/2021 19:14:09 VITALS INFORMATION Vital Sign [...] female presenting to the emergency department from [facility] for evaluation of low blood pressure possibility [...] not currently on diuretics secondary to her bridge engineer stating that she should not take these. [...] -Pharynx is pink and dry NECK: -Supple (biem-yr-ibise): non-tender. CARD: -Rate and rhythm: Regular -Edema: [...] was performed with patient's consent and nurse industry segment specialist Jessica in the room the entire time -External rectal exam reveals no abnormalities -Digital rectal exam reveals no masses or polyps within reach of my finger, stool guaiac is positive Medical Decision Making 55-year-old female presenting to the emergency department for evaluation of low blood pressure taken manually at [facility] of 90/45 and possibility of looking mildly jaundiced. I discussed this with (more content not included)... Normal [facility] ED Patient Education Noteon 08-07-2021 ED Patient Education Note Education Materials [facility] ED Patient Summaryon 022 ED Patient Summary [facility] - Emergency Department [address] [place] [address] PATIENT DISCHARGE INSTRUCTIONS Patient Information Name: ASHVIN RENE Age: 65 Years Date of : 1955 Reason For Visit: General medical; ANEMIA, ELEVATED TROPONIN Arrival Time: 08/06/2021 17:10:50 Primary Care Physician: TUSHAR SOLANO JR. Attending Physician: Waqas Castro MD Comment: Visit Diagnosis: Diagnoses This Visit Anemia (D64.9) General medical ([id number]) GI bleed (K92.2) Peripheral edema (R60.9) Prescription Information: If you have been given a prescription for narcotics, seek immediate medical attention if you have any difficulty breathing or any sudden status changes such as confusion and sleepiness. If you or anyone you know is experiencing suicidal thoughts, mental health, alcohol and/or drug addiction problems; contact the [facility] 03/02 Crisis Hotline -Text 4HOPE to 463575. If you received any narcotics, sedation, or [...] and treatment you received today in the [facility] Emergency Department were for an urgent problem and are not intended as complete care. It is important for you to follow up with a doctor, nurse practitioner, or physician?s safety admin assistant for ongoing care. If your symptoms [...] so we can reach you if necessary. [facility] Emergency Department has provided you with a complete list of medications post discharge. Please inform your ct scan tech/provider of your visit and for further instruction [...] mg oral tablet) potassium chloride (Potassium Chloride (Xzu-Snpv-Nrq 10) 10 mEq oral tablet, extended release) [...] Weight Dosin. (more content not included)... Normal [facility] Ferritinon 08-07-2021 Ferritin [Mass/Vol] 14.2 ng/mL Normal 12.0-150.0 [facility] Comment on above: Performed By: #### 1 [id number], 6140637, 65696946, 9233029 #### [facility] (DEFAULT) [address] [place] [address] 68686 Folateon 08-07-2021 Folic Acid Level 6.62 ng/mL Normal 5.90-24.80 [facility] Comment on above: Result Comment: Norm al folate results > 3.0 ng/mL. Performed By: #### 1 [id number], 5403900, 06868543, 9785914 #### [facility] (DEFAULT) [address] [place] [address] 69155 Free T4on 08-07-2021 Free T4 [Mass/Vol] 1.30 ng/dL High 0.61-1.12 [facility] Comment on above: Result Comment: Spec imens that contain high levels of Biotin may cause false high results Performed By: #### 1 [id number], 3434162, 21402951, 3729836 #### [facility] (DEFAULT) [address] [place] [address] 87821 Iron Profileon 08-07-2021 Iron [Mass/Vol] 24.0 ug/dL Low 28.0-170.0 [facility] Comment on above: Performed By: #### 1 [id number], 3500660, 94804899, 2326945 #### [facility] (DEFAULT) [address] [place] [address] 93506 Iron Sat 15 % Low 20-55 [facility] Comment on above: Performed By: #### 1 [id number], 5971259, 50230270, 7913242 #### [facility] (DEFAULT) [address] [place] [address] 77431 TIBC 158 mcg/dL Low 250-400 [facility] Comment on above: Performed By: #### 1 [id number], 4785392, 27633641, 2803257 #### [facility] (DEFAULT) [address] [place] [address] 51223 Transferrin [Mass/Vol] 113.1 mg/dL Low 192.0-382.0 [facility] Comment on above: Performed By: #### 1 [id number], 1899680, 04821222, 5743419 #### [facility] (DEFAULT) [address] [place] [address] LDHon 08-07-2021 LDH 299.0 IU/L High 98.0-192.0 [facility] Comment on above: Performed By: #### 1 [id number], 9862726, 27046682, 9650578 #### [facility] (DEFAULT) [address] [place] [address] Magnesiumon 08-07-2021 Magnesium [Mass/Vol] 0.98 mg/dL Low 1.80-2.50 [facility] Comment on above: Performed By: #### 1 [id number], 2552809, 43639758, 2260138 #### [facility] (DEFAULT) [address] [place] [address] Occult Blood, Fecalon 2021 Internal QC OK? Pass Normal [facility] Comment on above: Performed By: #### 1 [id number], 1529844, 28198174, 2866593 #### [facility] (DEFAULT) [address] [place] [address] Occult Bld Stl Positive Abnormal Negative [facility] Comment on above: Performed By: #### 1 [id number], 6963166, 46505543, 0286864 #### [facility] (DEFAULT) [address] [place] [address] Path Reviewon 08-07-2021 Pathology Test See Report Normal [facility] Comment on above: Result Comment: Sepa rate report to follow. Sent to [facility] for Path Review Performed By: #### 1 [id number], 7314994, 83748896, 0488289 #### [facility] (DEFAULT) [address] [place] [address] Retic Counton 08-07-2021 Reticulocyte 2.8 % High 0.5-1.5 [facility] Comment on above: Performed By: #### 1 [id number], 0997685, 88875868, 9598264 #### [facility] (DEFAULT) [address] [place] [address] 28061 TSH w/ Reflex to FT4on 08-07 TSH Qn 16.54 m[IU]/L High 0.45-5.33 [facility] Comment on above: Result Comment: Gene ral Population (males and non- females, aged 21-88) 0.45 - 5.33 Females, 1st Trimester 0.05 - 3.70 Females, 2nd Trimester 0.31 - 4.35 Females, 3rd Trimester 0.41 - 5.18 Performed By: #### 1 [id number], 0992762, 97001669, 9040518 #### [facility] (DEFAULT) [address] [place], [place] [address] Telemetry Stripson 2 Telemetry Strips [id number] Normal [facility] TnI HSon 08-07-2021 Troponin I High Sensitivity 16 pg/mL Critically abnormal <=15 [facility] Comment on above: Result Comment: Elev ated hsTnI 16 result called and read back ok to: SHILOH OBRIEN 2S at: 09:07:23 08/07/2021 by: TAPAN Male Baseline Delta 1Hr (Note pg/mL=ng/L) <20pg/mL 50-60% >20pg/mL 20% Female Baseline Delta 1Hr <15pg/mL 50-60% >15pg/mL 20% Other Baseline Delta 1Hr <18ng/mL 50-60% >18ng/mL 20% ([employer] Guidelines February 2018) Performed By: #### 1 [id number], 0360423, 81644211, 1971594 #### [facility] (DEFAULT) [address] [place] [address] 22637 Troponin I High Sensitivity 19 pg/mL Critically abnormal <=15 [facility] Comment on above: Result Comment: Elev ated hsTnI 19 result called and read back ok to: DEMETRA DAS RN 2S at: 02:25:36 08/07/2021 by: SYBIL Male Baseline Delta 1Hr (Note pg/mL=ng/L) <20pg/mL 50-60% >20pg/mL 20% Female Baseline Delta 1Hr <15pg/mL 50-60% >15pg/mL 20% Other Baseline Delta 1Hr <18ng/mL 50-60% >18ng/mL 20% ([employer] Guidelines February 2018) Performed By: #### 7 492219, 85386612, 7802995, [id number] #### [facility] (DEFAULT) [address] [place] [address] US Echocardiogram Completeon 08-07-2021 US Echocardiogram Complete [...] tricuspid regurgitation. Tim Harrington MD JOB #: [id number] bk Final Dictated by: Tim Harrington MD Dictated DT/TM: 08/08/21 8:50 Signed (Electronic Signature): Tim Harrington MD 08/09/21 8:25 am Normal [facility] Vit B12 Lvlon 08-07-2021 Vit B12 853 Normal 180-914 [facility] Comment on above: Performed By: #### 1 [id number], 6202469, 76816218, 7458455 #### [facility] (DEFAULT) [address] [place] [address] 79053 .Auto Diff 1on - Auto Costilla % 7 % Normal 1-12 [facility] Comment on above: Performed By: #### 7 455917, 18621529, 8602392, [id number] #### [facility] (DEFAULT) [address] [place], [place] [address] Baso Abs# 0.0 x10 Normal 0.0-0.2 [facility] Comment on above: Performed By: #### 7 964999, 70054459, 5139042, 5560761391 #### [facility] (DEFAULT) [address] [place] [address] Basophils/100 WBC (Bld) 0.5 % Normal 0.2-2.0 [facility] Comment on above: Performed By: #### 7 963448, 18978104, 5707043, [id number] #### [facility] (DEFAULT) [address] [place] [address] 63666 Eos Abs# 0.0 x10 Normal 0.0-0.4 [facility] Comment on above: Performed By: #### 7 019677, 63243776, 4397458, [id number] #### [facility] (DEFAULT) [address] [place] [address] 96630 Eosinophils/100 WBC (Bld) 0.7 % Low 0.9-4.0 [facility] Comment on above: Performed By: #### 7 281993, 40236592, 6589691, [id number] #### [facility] (DEFAULT) [address] [place] [address] 91164 Lymph Abs# 1.2 x10 Low 1.3-2.9 [facility] Comment on above: Performed By: #### 7 977818, 67681388, 1420517, [id number] #### [facility] (DEFAULT) [address] [place] [address] 71838 Lymphocytes/100 WBC (Bld) 16 % Normal 14-48 [facility] Comment on above: Performed By: #### 7 402232, 75466678, 4589872, [id number] #### [facility] (DEFAULT) [address] [place] [address] Costilla Abs# 0.5 x10 Normal 0.0-0.8 [facility] Comment on above: Performed By: #### 7 050483, 36428419, 7162570, [id number] #### [facility] (DEFAULT) [address] [place] [address] Neut Abs# 5.7 x10 Normal 1.5-9.2 [facility] Comment on above: Performed By: #### 7 098932, 51474260, 5336388, [id number] #### [facility] (DEFAULT) [address] [place] [address] Neutrophils/100 WBC (Bld) 76 % Normal 44-88 [facility] Comment on above: Performed By: #### 7 466641, 63471978, 7051197, [id number] #### [facility] (DEFAULT) [address] [place] [address] ABORhon 08-06-2021 ABO and Rh group Nom (Bld) Hx Check: Not Found Anti-A: 0 Anti-B: 0 Anti-D: 4+ DCon: 0 A1: 4+ B: 4+ ABORh Interp: O POS Invalid Interpretation Code [facility] Comment on above: Performed By: #### 7 273510, 23643551, 9680126, [id number] #### [facility] (DEFAULT) [address] [place] [address] ABORh Retypeon 08-06-2021 ABO and Rh group Nom (Bld) Ordered by Discern. Anti-A: 0 Anti-B: 0 Anti-D: 4+ DCon: 0 A1: 3+ B: 3+ ABORh Retype: O POS Invalid Interpretation Code [facility] Comment on above: Performed By: #### 7 057251, 57640714, 8117390, [id number] #### [facility] (DEFAULT) [address] [place] [address] ABSC Gelon 08-06-2021 ABSC Gel Negative Normal [facility] Comment on above: Performed By: #### 7 953816, 49370826, 8166393, [id number] #### [facility] (DEFAULT) [address] [place] [address] BNP.on 08-06-2021 Natriuretic peptide B (Bld) [Mass/Vol] 123.0 pg/mL High 0.0-100.0 [facility] Comment on above: Result Comment: BNP results greater than 100 pg/mL are considered abnormal and suggestive of patients with CHF. Higher BNP concentrations measured in the first 72 hours after an acute coronary syndorme are associated with an increased risk of , myocardial infarction, and CHF. Performed By: #### 7 302858, 28461935, 3853924, [id number] #### [facility] (DEFAULT) [address] [place] [address] Blood Bank IDon 08-06-2021 Blood Bank ID BBID: [id number] Invalid Interpretation Code [facility] Comment on above: Performed By: #### 7 988390, 37921409, 5908478, [id number] #### [facility] (DEFAULT) [address] [place] [address] CBC w/ Auto Diffon Erythrocyte distribution width (RBC) [Ratio] 19.4 % High 11.5-15.0 [facility] Comment on above: Performed By: #### 7 181906, 50663148, 8064914, [id number] #### [facility] (DEFAULT) [address] [place] [address] Hematocrit (Bld) [Volume fraction] 24.7 % Low 33.7-40.4 [facility] Comment on above: Performed By: #### 7 388987, 13187279, 3580935, [id number] #### [facility] (DEFAULT) [address] [place] [address] Hemoglobin (Bld) [Mass/Vol] 7.4 g/dL Low 11.3-15.9 [facility] Comment on above: Performed By: #### 7 889759, 01856097, 8829427, [id number] #### [facility] (DEFAULT) [address] [place] [address] Instr WBC 7.5 x10 Invalid Interpretation Code [facility] Comment on above: Performed By: #### 7 471300, 86179537, 1596882, [id number] #### [facility] (DEFAULT) [address] [place] [address] 16808 Man Diff? RBC Morph Only Normal [facility] Comment on above: Performed By: #### 7 145162, 43916263, 3602064, [id number] #### [facility] (DEFAULT) [address] [place] [address] 52715 MCH (RBC) [Entitic mass] 28 pg Normal 24-34 [facility] Comment on above: Performed By: #### 7 544932, 14285364, 4600656, 4048186782 #### [facility] (DEFAULT) [address] [place] [address] 71781 MCHC (RBC) [Mass/Vol] 30 g/dL Normal 26-37 [facility] Comment on above: Performed By: #### 7 772134, 66780402, 1192764, 3968629241 #### [facility] (DEFAULT) [address] [place] [address] 89466 MCV (RBC) [Entitic vol] 92 fL Normal 81-100 [facility] Comment on above: Performed By: #### 7 056148, 61394900, 7779730, [id number] #### [facility] (DEFAULT) [address] [place] [address] 20412 Platelet 533 x10 High 138-427 [facility] Comment on above: Performed By: #### 7 564847, 62862154, 8238756, [id number] #### [facility] (DEFAULT) [address] [place] [address] 16729 Platelet mean volume (Bld) [Entitic vol] 8.8 fL Normal 6.3-10.2 [facility] Comment on above: Performed By: #### 7 116892, 28462949, 1053245, 9746798767 #### [facility] (DEFAULT) [address] [place] [address] 37839 RBC 2.67 x10 Low 3.70-5.30 [facility] Comment on above: Performed By: #### 7 988933, 11549934, 5570240, 6792980163 #### [facility] (DEFAULT) [address] [place] [address] 06397 WBC 7.5 x10 Normal 3.5-10.5 [facility] Comment on above: Performed By: #### 7 113803, 48614069, 3326791, 0437259919 #### [facility] (DEFAULT) [address] [place] [address] 14892 CMP Standardon 08-06-2021 eGFR Non AA >60 Invalid Interpretation Code [facility] Comment on above: Performed By: #### 7 649646, 54222714, 2970231, [id number] #### [facility] (DEFAULT) [address] [place] [address] 21159 eGFR AA >60 Invalid Interpretation Code [facility] Comment on above: Result Comment: Commercial Correspondent juanito Kidney disease could be indicated at eGFRs of less than 60 ml/min/1.73m2. Kidney Failure is indicated at less than 15 ml/min/1.73m2 Performed By: #### 7 845309, 60165002, 5387632, [id number] #### [facility] (DEFAULT) [address] [place] [address] 72170 Albumin [Mass/Vol] 1.6 g/dL Low 3.5-5.0 [facility] Comment on above: Performed By: #### 7 173680, 79304604, 7744222, [id number] #### [facility] (DEFAULT) [address] [place] [address] 54826 Albumin/Globulin [Mass ratio] 0.7 {ratio} Low 1.4-2.6 [facility] Comment on above: Performed By: #### 7 649757, 13647778, 1639704, 8942106851 #### [facility] (DEFAULT) [address] [place] [address] 93086 Alk Phos 52 IU/L Normal 32-91 [facility] Comment on above: Performed By: #### 7 131265, 25539086, 5734937, 0477519638 #### [facility] (DEFAULT) [address] [place] [address] 78630 ALT [Catalytic activity/Vol] 23.0 U/L Normal 14.0-54.0 [facility] Comment on above: Performed By: #### 7 074194, 15018651, 0153038, 4415231387 #### [facility] (DEFAULT) [address] [place] [address] 94656 Anion gap [Moles/Vol] 14.0 mmol/L Normal 5.0-19.0 [facility] Comment on above: Performed By: #### 7 431969, 29495530, 8968469, 6794323110 #### [facility] (DEFAULT) [address] [place] [address] 18473 AST [Catalytic activity/Vol] 27 U/L Normal 15-41 [facility] Comment on above: Performed By: #### 7 341525, 13969137, 2568586, [id number] #### [facility] (DEFAULT) [address] [place] [address] 74536 Bili Total 0.4 mg/dL Normal 0.3-1.2 [facility] Comment on above: Performed By: #### 7 618234, 86034927, 8873157, [id number] #### [facility] (DEFAULT) [address] [place] [address] 74686 Calcium [Mass/Vol] 6.1 mg/dL Low 8.9-10.3 [facility] Comment on above: Performed By: #### 7 880397, 01783132, 5744375, 3675012115 #### [facility] (DEFAULT) [address] [place] [address] 65538 Chloride [Moles/Vol] 108 mmol/L Normal 101-111 [facility] Comment on above: Performed By: #### 7 733412, 15950432, 4855132, [id number] #### [facility] (DEFAULT) [address] [place] [address] 68180 CO2 [Moles/Vol] 21 mmol/L Normal 21-32 [facility] Comment on above: Performed By: #### 7 807991, 63332792, 5996670, [id number] #### [facility] (DEFAULT) [address] [place] [address] 23075 Creatinine [Mass/Vol] 0.64 mg/dL Normal 0.60-1.30 [facility] Comment on above: Performed By: #### 7 564511, 93881810, 7221117, 9884182503 #### [facility] (DEFAULT) [address] [place] [address] 89087 Globulin (S) [Mass/Vol] 2.4 g/dL Normal 1.5-4.3 [facility] Comment on above: Performed By: #### 7 113585, 04612080, 9929870, 2561039750 #### [facility] (DEFAULT) [address] [place] [address] 58685 Glucose [Mass/Vol] 118.0 mg/dL Normal 74.0-118.0 [facility] Comment on above: Performed By: #### 7 907738, 36791806, 6710910, [id number] #### [facility] (DEFAULT) [address] [place] [address] 83412 Osmolality 277 mOsm/L Invalid Interpretation Code [facility] Comment on above: Performed By: #### 7 033993, 04996151, 2266818, [id number] #### [facility] (DEFAULT) [address] [place] [address] 04388 Potassium [Moles/Vol] 3.8 mmol/L Normal 3.6-5.1 [facility] Comment on above: Performed By: #### 7 276675, 65036630, 9108608, [id number] #### [facility] (DEFAULT) [address] [place] [address] 29732 Protein [Mass/Vol] 4.0 g/dL Low 6.5-8.1 [facility] Comment on above: Performed By: #### 7 465342, 14940417, 9300669, [id number] #### [facility] (DEFAULT) [address] [place] [address] 83869 Sodium [Moles/Vol] 139.0 mmol/L Normal 136.0-144.0 [facility] Comment on above: Performed By: #### 7 677309, 04446611, 3546947, [id number] #### [facility] (DEFAULT) [address] [place] [address] 55699 Urea nitrogen [Mass/Vol] 9 mg/dL Normal 8-26 [facility] Comment on above: Performed By: #### 7 471453, 89870612, 8097645, 9163832511 #### [facility] (DEFAULT) [address] [place] [address] 44253 Urea nitrogen/Creatinin e [Mass ratio] 14.0 mg/mg Normal 4.6-16.2 [facility] Comment on above: Performed By: #### 7 546678, 34807264, 1648952, [id number] #### [facility] (DEFAULT) [address] [place] [address] 96611 ED Note - Physicianon 2021 ED Note - Physician Patient: ASHVIN RENE Age: 65 years Sex: FEMALE : 1955 Associated Diagnoses: General medical; Anemia; Peripheral edema; GI bleed Author: EVERTON NEGRON Basic Information Time seen: Date & time 08/06/2021 17:19:00. History source: Patient, EMS. Arrival mode: Ambulance. History of Present Illness Patient is a 65-year-old female presenting to the emergency department from [facility] for evaluation of low blood pressure possibility [...] not currently on diuretics secondary to her bridge engineer stating that she should not take these. [...] -Pharynx is pink and dry NECK: -Supple (cjiq-vd-aexbd): non-tender. CARD: -Rate and rhythm: Regular -Edema: [...] was performed with patient's consent and nurse industry segment specialist Jessica in the room the entire time -External rectal exam reveals no abnormalities -Digital rectal exam reveals no masses or polyps within reach of my finger, stool guaiac is positive Medical Decision Making 55-year-old female presenting to the emergency department for evaluation of low blood pressure taken manually at [facility] of 90/45 and possibility of looking [...] at this time. According to paperwork from prison facility patient CODE STATUS is full code Results review: Lab results : Lab Flowsheet 08/06/2021 18:55 EST Troponin I High Sensitivity 21 pg/mL CRIT 08/06/2021 1 (more content not included)... Normal [facility] ED Note-Nursingon 08-06-2021 ED Note-Nursing patient did not want to come in. patient is from [facility], patient has a history of hypotension and she takes midodrine regularly. she also took zofran. nurse states arms and legs are weeping. nurse states skin is yellow. patient has c diff. nurse at [facility] did a wrist bloodpressure and it was 90/44, ems did a blood pressure and it was 144/90. patient states alf is not giving me my blood pressure meds Normal [facility] Extra Pinkon 08-06-2021 Tube Collected Yes Invalid Interpretation Code [facility] Comment on above: Performed By: #### 7 588486, 54659490, 8012968, [id number] #### [facility] (DEFAULT) [address] [place] [address] Lactic Acidon 08-06-2021 Lactic Acid 16.2 mg/dL Normal 4.5-19.8 [facility] Comment on above: Performed By: #### 7 525188, 72069994, 4161758, [id number] #### [facility] (DEFAULT) [address] [place] [address] Lipaseon 08-06-2021 Lipase Level 20.0 IU/L Low 22.0-51.0 [facility] Comment on above: Performed By: #### 7 410425, 68309783, 5287240, [id number] #### [facility] (DEFAULT) [address] [place] [address] Magnesiumon 08-06-2021 Magnesium [Mass/Vol] 0.92 mg/dL Low 1.80-2.50 [facility] Comment on above: Performed By: #### 7 480930, 57110056, 2583821, [id number] #### [facility] (DEFAULT) [address] [place] [address] Morphologyon 08-06-2021 Aniso 1+ Normal [facility] Comment on above: Order Comment: Order added by Joselito. Performed By: #### 7 466307, 41978357, 6513319, [id number] #### [facility] (DEFAULT) [address] [place] [address] Hypochrom 1+ Normal [facility] Comment on above: Order Comment: Order added by Joselito. Performed By: #### 7 399176, 30777959, 0260948, [id number] #### [facility] (DEFAULT) [address] [place] [address] [employer] 1+ Normal [facility] Comment on above: Order Comment: Order added by Joselito. Performed By: #### 7 [id number], [id number], [id number], [id number] #### [facility] (DEFAULT) [address] [place] [address] RBC morphology finding Nom (Bld) See Morphology Normal [facility] Comment on above: Order Comment: Order added by Joselito. Performed By: #### 7 [id number], [id number], [id number] #### [facility] (DEFAULT) [address] [place] [address] RBC.on 08-06-2021 RBC. # of Units: 2 RBC Indication: Symptom Anemia Additional Units?: No Date Needed: 08/06/21 Red Cell Status: RBC Ready Normal [facility] Comment on above: Performed By: #### 1 [id number], [id number], [id number], [id number] #### [facility] (DEFAULT) [address] [place] [address] SARS-CoV-2 (COVID-19) PCRon 08-06-2021 Employed in healthcare? No Invalid Interpretation Code [facility] Comment on above: Performed By: #### 1 [id number], [id number], [id number], [id number] #### [facility] (DEFAULT) [address] [place] [address] Group care resident? Yes Invalid Interpretation Code [facility] Comment on above: Performed By: #### 1 [id number], [id number], [id number], [id number] #### [facility] (DEFAULT) [address] [place] [address] In ICU? Unknown Invalid Interpretation Code [facility] Comment on above: Performed By: #### 1 [id number], [id number], [id number], [id number] #### [facility] (DEFAULT) [address] [place] [address] status? Not Invalid Interpretation Code [facility] Comment on above: Performed By: #### 1 [id number], [id number], [id number], [id number] #### [facility] (DEFAULT) [address] [place] [address] SARS-CoV-2 (COVID-19) RNA JESSICA+probe Ql (Unsp spec) Detected Critically abnormal Not Detected [facility] Comment on above: Result Comment: Resu lts Called To MICAH Prince in ER By RR And Read Back For Confirmation On 08/06/2021 19:54:09 EST. Performed by PCR methodology. Performed By: #### 1 [id number], [id number], [id number], [id number] #### [facility] (DEFAULT) [address] [place] [address] SARS-CoV-2 (COVID-19) RNA JESSICA+probe Ql (Unsp spec) Unknown Invalid Interpretation Code [facility] Comment on above: Performed By: #### 1 [id number], [id number], [id number], [id number] #### [facility] (DEFAULT) [address] [place] [address] Symptomatic as defined by CDC? No Invalid Interpretation Code [facility] Comment on above: Performed By: #### 1 [id number], [id number], [id number], [id number] #### [facility] (DEFAULT) [address] [place] [address] TnI HSon 08-06-2021 Troponin I High Sensitivity 21 pg/mL Critically abnormal <=15 [facility] Comment on above: Result Comment: Elev ated hsTnI 21 result called and read back ok to: GELY OBRIEN ER at: 19:26:45 08/06/2021 by: RRUPPERT Male Baseline Delta 1Hr (Note pg/mL=ng/L) <20pg/mL 50-60% >20pg/mL 20% Female Baseline Delta 1Hr <15pg/mL 50-60% >15pg/mL 20% Other Baseline Delta 1Hr <18ng/mL 50-60% >18ng/mL 20% ([employer] Guidelines February 2018) Performed By: #### 7 [id number], [id number], [id number], [id number] #### [facility] (DEFAULT) [address] [place] [address] Troponin I High Sensitivity 17 pg/mL Critically abnormal <=15 [facility] Comment on above: Result Comment: Elev ated hsTnI 17 result called and read back ok to: JESSICA AL RN IN ER at: 18:28:53 08/06/2021 by: RRUPPERT Male Baseline Delta 1Hr (Note pg/mL=ng/L) <20pg/mL 50-60% >20pg/mL 20% Female Baseline Delta 1Hr <15pg/mL 50-60% >15pg/mL 20% Other Baseline Delta 1Hr <18ng/mL 50-60% >18ng/mL 20% ([employer] Guidelines February 2018) Performed By: #### 7 [id number], [id number], [id number], [id number] #### [facility] (DEFAULT) [address] [place] [address] XR Chest 1 View Frontalon XR Chest [...] DO 08/06/21 8:49 pm Technologist: RANDALL [facility] KNEE RIGHT 3 VWSon KNEE RIGHT 3 [facility] Department of Radiology [address] [place] [address] Patient Name: ASHVIN RENE : 1955 Sex: F Age: Race: White Pt. Location: Patient Status: O Ordered Date: 01/01/2021 3:20:00 PM Completed Date: 01/01/2021 03:21 PM Requesting Provider: TIARA VÁZQUEZ Attending Provider: TIARA VÁZQUEZ Report Copy To: Signs & Symptoms: M25.561 Pain in right knee I10 History: Comments: Evaluate Exam: KNEE RIGHT 3 [facility] KNEE RIGHT 3 VWS 01/01/2021 3:21 PM [...] change Electronically signed: Tawana Andrade. Transcribed by: [email or web address], User Resident: Electronically Signed by: TAWANA ANDRADE @ 01/01/2021 08:57 PM Normal [facility] Comment on above: Order Comment: Evalu ate Basic Metabolic Panlon 12-08 Anion gap [Moles/Vol] 13 mmol/L Normal 9-18 [facility] Comment on above: Performed By: #### B MP ####[facility] [place], [place] [phone] Calcium [Mass/Vol] 7.1 mg/dL Low 8.5-10.2 [facility] Comment on above: Performed By: #### B MP ####[facility] [address] [place], [place] [phone] Chloride [Moles/Vol] 107 mmol/L High 97-105 [facility] Comment on above: Performed By: #### B MP ####[facility] [address] [place], [place] [phone] CO2 [Moles/Vol] 18 mmol/L Low 22-30 [facility] Comment on above: Performed By: #### B MP ####[facility] [address] [place], [place] [phone] Creatinine [Mass/Vol] 0.97 mg/dL High 0.58-0.96 [facility] Comment on above: Performed By: #### B MP ####[facility] [address] [place], [place] [phone] eGFR- Amer. >60 Normal [facility] Comment on above: Performed By: #### B MP ####[facility] [place], [place] [phone] eGFR-All Other Races 57 . Normal [facility] Comment on above: Result Comment: [...] actual GFR. Performed By: #### B MP ####[address] [phone] Glucose [Mass/Vol] 79 mg/dL Normal 74-99 [facility] Comment on above: Result Comment: The [employer] Diabetes Association (ADA) provides guidance for cutoff [...] Standards of Medical Care in Diabetes 2016, [place] Diabetes Association. Diabetes Care. 2016.39(Suppl 1). Performed By: #### B MP ####[facility] [place], [place] [phone] Potassium [Moles/Vol] 4.4 mmol/L Normal 3.7-5.1 [facility] Comment on above: Performed By: #### B MP ####[facility] [place], [place] [phone] Sodium [Moles/Vol] 138 mmol/L Normal 136-144 [facility] Comment on above: Performed By: #### B MP ####[address] [phone] Urea nitrogen [Mass/Vol] 15 mg/dL Normal 7-21 [facility] Comment on above: Performed By: #### B MP ####[address] [phone] Coronavirus 2019on SARS-CoV-2 (COVID-19) RNA JESSICA+probe Ql (Unsp spec) Nasopharyngeal Swab Normal [facility] Comment on above: Performed By: #### C OVID ####[address] [phone] SARS-CoV-2 (COVID-19) RNA JESSICA+probe Ql (Unsp spec) Negative for COVID19 (SARS CoV2) by RT-PCR or equivalent method. Normal Negative for COVID19 (SARS CoV2) by RT-PCR or equivalent method. [facility] Comment on above: Result Comment: This test was developed and its performance characteristics determined by [facility] [place]. This test has been authorized by FDA under an Emergency Use Authorization (EUA). This test has been validated in accordance with the FDA's Guidance Document Policy for Diagnostics Testing in Laboratories Certified to Perform High Complexity Testing under CLIA prior to Emergency use Authorization for Coronavirus Disease 2019 during the Public Health Emergency issued on September 11, 2019. Test performed by [facility], [facility] [place], [address] [place], [place] [address]. Performed By: #### C OVID ####[address] [phone] CBCon 12-07-2020 Absolute nRBC <0.01 Normal <0.01 [facility] Comment on above: Performed By: #### C MP, CBC, PT ####[address] [phone] Erythrocyte distribution width (RBC) [Ratio] 15.1 % High 11.5-15.0 [facility] Comment on above: Performed By: #### C MP, CBC, PT ####[address] [phone] Hematocrit (Bld) [Volume fraction] 33.1 % Low 36.0-46.0 [facility] Comment on above: Performed By: #### C MP, CBC, PT ####[place] [phone] Hemoglobin (Bld) [Mass/Vol] 10.0 g/dL Low 11.5-15.5 [facility] Comment on above: Performed By: #### C MP, CBC, PT ####[place] [phone] MCH 31.9 pG Normal 26.0-34.0 [facility] Comment on above: Performed By: #### C MP, CBC, PT ####[place] [phone] MCHC (RBC) [Mass/Vol] 30.2 g/dL Low 30.5-36.0 [facility] Comment on above: Performed By: #### C MP, CBC, PT ####[place] [address] [place] [address] [place] [phone] MCV (RBC) [Entitic vol] 105.8 fL High 80.0-100.0 [facility] Comment on above: Performed By: #### C MP, CBC, PT ####[place] [phone] Platelet mean volume (Bld) [Entitic vol] 9.6 fL Normal 9.0-12.7 [facility] Comment on above: Performed By: #### C MP, CBC, PT ####[place] [address] [place] [address], [place] [phone] Platelets (Bld) [#/Vol] 256 10*3/uL Normal 150-400 [facility] Comment on above: Performed By: #### C MP, CBC, PT ####[place] [address], [place] [phone] RBC (Bld) [#/Vol] 3.13 10*6/uL Low 3.90-5.20 [facility] Comment on above: Performed By: #### C MP, CBC, PT ####[place] [address], [place] [phone] WBC (Bld) [#/Vol] 5.83 10*3/uL Normal 3.70-11.00 [facility] Comment on above: Performed By: #### C MP, CBC, PT ####[place] [address], [place] [phone] Comp Metabolic Panelon 12-07 Albumin [Mass/Vol] 3.1 g/dL Low 3.9-4.9 [facility] Comment on above: Performed By: #### C MP, CBC, PT ####[place] [address], [place] [phone] ALP [Catalytic activity/Vol] 34 U/L Normal 34-123 [facility] Comment on above: Performed By: #### C MP, CBC, PT ####[place] [address], [place] [phone] ALT [Catalytic activity/Vol] 16 U/L Normal 7-38 [facility] Comment on above: Performed By: #### C MP, CBC, PT ####[place] [address], [place] [phone] Anion gap [Moles/Vol] 8 mmol/L Low 9-18 [facility] Comment on above: Performed By: #### C MP, CBC, PT ####[place] [address] [place] [address] [place] [phone] AST [Catalytic activity/Vol] 16 U/L Normal 13-35 [facility] Comment on above: Performed By: #### C MP, CBC, PT ####[place] [address] [place] [address] [phone] Bilirubin [Mass/Vol] 0.2 mg/dL Normal 0.2-1.3 [facility] Comment on above: Performed By: #### C MP, CBC, PT ####[place] [address] [place] [address] [phone] Calcium [Mass/Vol] 8.4 mg/dL Low 8.5-10.2 [facility] Comment on above: Performed By: #### C MP, CBC, PT ####[place] [address] [place] [address] [phone] Chloride [Moles/Vol] 111 mmol/L High 97-105 [facility] Comment on above: Performed By: #### C MP, CBC, PT ####[place] [address] [place] [address] [phone] CO2 [Moles/Vol] 21 mmol/L Low 22-30 [facility] Comment on above: Performed By: #### C MP, CBC, PT ####[place] [address] [place] [address] [place] [phone] Creatinine [Mass/Vol] 1.16 mg/dL High 0.58-0.96 [facility] Comment on above: Performed By: #### C MP, CBC, PT ####[place] [address] [place] [address] [place] [phone] eGFR- Amer. 56 Normal [facility] Comment on above: Performed By: #### C MP, CBC, PT ####[place] [address] [address] [place] [phone] eGFR-All Other Races 47 . Normal [facility] Comment on above: Result Comment: [...] Performed By: #### C MP, CBC, PT ####[facility] [place], [place] [phone] Glucose [Mass/Vol] 96 mg/dL Normal 74-99 [facility] Comment on above: Result Comment: The [place] Diabetes Association (ADA) provides guidance for cutoff [...] Standards of Medical Care in Diabetes 2016, [place] Diabetes Association. Diabetes Care. 2016.39(Suppl 1). Performed By: #### C MP, CBC, PT ####[facility] [address] [place], [place] [phone] Potassium [Moles/Vol] 4.7 mmol/L Normal 3.7-5.1 [facility] Comment on above: Performed By: #### C MP, CBC, PT ####[facility] [place], [place] [phone] Protein [Mass/Vol] 5.0 g/dL Low 6.3-8.0 [facility] Comment on above: Performed By: #### C MP, CBC, PT ####[facility] [place], [place] [phone] Sodium [Moles/Vol] 140 mmol/L Normal 136-144 [facility] Comment on above: Performed By: #### C MP, CBC, PT ####[facility] [place], [place] [phone] Urea nitrogen [Mass/Vol] 22 mg/dL High 7- [facility] Comment on above: Performed By: #### C MP, CBC, PT ####[place] [address] [place], [place] [phone] Protimeon 12-07-2020 PT INR 1.2 Normal 0.9-1.3 [facility] Comment on above: Result Comment: Jenny min K Antagonist (VKA) Therapeutic Range: INR 2 to 3 (Target INR of 2.5) Note: For patients treated with VKA drugs, such as warfarin, the [employer] College [employer] 2012 Guideline recommends [...] Performed By: #### C MP, CBC, PT ####[facility] [place], [place] [phone] PT Sec 12.3 sec Normal 9.7-13.0 [facility] Comment on above: Performed By: #### C MP, CBC, PT ####[place] [address] [place], [place] [phone] Mirella 12-06-2020 JEFFREY Telephone (BIBI) -- ASHVIN RENE ([id number]) 1955 F Date Time Provider Department 12/06/20 [...] education topics: Arrival time/NPO Status/Medications/Travel INSTRUCTED ON [employer] RESTRICTIONS - AWARE TO HAVE PERSONAL ATTENDANT Instructions/Restrictions Patient/Family Response Evaluation: Verbalizes understanding Follow [...] 12/06/2020 Noted Resolved 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 S/P CABG (coronary artery bypass graft) [Z95.1] 11/24/2020 Pure hypercholesterolemia [E78.00] 11/24/2020 Type 2 diabetes mellitus without complication, *11/24/2020 Fatigue [R53.83] 11/24/2020 Encounter Status:Closed by COTY MORALES RN [facility]06/20 [facility] JEFFREY Telephone (DIOMEDES) -- ASHVIN RENE ([id number]) 1955 F Date Time Provider Department 11/28/20 [...] 11/29/2020 9:46 AM Signed Faxed orders to [phone] Kd Solitario 11/29/2020 12:22 PM Signed Patient called back and gave alternative fax # [phone] She would also like cath to be scheduled on 12/07. 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] Order(s):CARDIAC DIRECTOR OF MANAGED CARE ORDER [[id number]] Order #: [id number]: 1 INTERMEDIATE RAPID COVID [SQITCOVD] Order #: [id number] FUTURE COMP METABOLIC PANEL [SQCMP] Order #: [id number] FUTURE CBC [SQCBC] Order #: [id number] FUTURE LIPID PANEL BASIC [SQLIPB] Order #: [id number] FUTURE CK CREATINE KINASE [SQCK] Order #: [id number] FUTURE ECG COMPLETE [ECG01] Order #: [id number] FUTURE Prescriptions as of 11/28/2020 Sig: ACETAMINOPHEN [...] 11/28/2020 Noted Resolved 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 Nay Joseph MD 11/29/2020 7:54 AM Signed [facility] [place] [facility] Department of Cardiovascular Medicine SECTION OF INTERVENTIONAL CARDIOLOGY OUTPATIENT VISIT DATE November 23, 2020 OUTPATIENT VISIT TYPE NEW PRIMARY CARE PHYSICIAN: Tushar Solano Jr, DO ([facility]) [address] [facility] [address] [place] [address] REFERRING PHYSICIAN: Waqas Mabry MD [address] [facility] [address] CHIEF COMPLAINT: No chief complaint on file. [...] resolved after CABG) 2015 CVA and (?) SD 05/24/16 Echo ? Normal left ventricular end-diastolic [...] Lexiscan injection (more content not included)... Normal [facility] CNCOon 11-22-2020 CNCO Letter Text Normal [facility] CNPNon 11-22-2020 CNPN Telephone (CATHMN) -- ASHVIN RENE ([id number]) 1955 F Date Time Provider Department 11/22/20 NAY JOSEPH During your visit today, we recorded the following information about you: Kd Solitario 11/22/2020 3:54 PM Signed Urgent records request faxed to [phone] Allergies As of Date: 11/22/2020 (Not on File) Date Reviewed: Never Reviewed Reason for Visit: Request Outside Medical Records [3571] Problem List As Of Date: 11/22/2020 (None) Encounter Status:Closed by KD SOLITARIO on 11/22/20 [facility] 11-09-2020 CNPN Telephone (REFPHY) -- ASHVIN RENE ([id number]) 1955 F Date Time Provider Department 11/09/20 NO ONE (HISTORICAL) REFPHY During your visit today, we recorded the following information about you: Ashvin Quezada [facility] 11/09/2020 10:11 AM Signed Patient: Ashvin Clinton Date of : 1955 Patient phone number: [phone] Referring Provider for the encounter: Dr Waqas Mabry Requesting Provider: Cardiology Reason for requesting visit (RFV/signs and symptoms/diagnosis): 2nd Opinion - Severe CAD Person calling: caregiver: [facility] Return call to: self Medical Records/Insurance Card scanned into [employer]: Yes Comments: N/A Allergies As of Date: 11/09/2020 (Not on File) Date Reviewed: Never Reviewed Reason for Visit: External Referrals/resources [909] Problem List As Of Date: 11/09/2020 (None) Encounter Status:Closed by ASHVIN DIAZ on 11/09/20 Normal [facility] XA-CARDIAC CATHETERIZATION I MPORTon 10-25-2020 XA-CARDIAC CATHETERIZATION IMPORT Images were obtained outside of [facility] [id number] Normal [facility] Vital Signs Date Time Vital Sign Value Performing Clinician Facility 10-15-2023 14:00-0400 Heart rate 80 /min Jonathan Malas DO Work Phone: [facility] 10-15-2023 14:00-0400 Respiratory rate 15 /min Jonathan Malas DO Work Phone: [facility] 10-15-2023 14:00-0400 SaO2% (BldA) [Mass fraction] 95 % Jonathan Malas DO Work Phone: [facility] 10-15-2023 12:15-0400 Body temperature 98.6 [degF] Jonathan Malas DO Work Phone: [facility] 10-15-2023 12:15-0400 Diastolic blood pressure 78 mm[Hg] Greggem Malas DO Work Phone: [facility] 10-15-2023 12:15-0400 Systolic blood pressure 121 mm[Hg] Jonathan Malas DO Work Phone: [facility] 10-14-2023 05:00-0400 Body mass index (BMI) [Ratio] 27.66 kg/m2 Jonathan Malas DO Work Phone: [facility] 10-14-2023 05:00-0400 Body weight 68.6 kg Jonathan Malas DO Work Phone: [facility] 10-13-2023 11:21-0400 Body height 157.5 cm Jonahtan Malas DO Work Phone: [facility] 08-21-2023 14:09-0500 Body temperature 97.9 [degF] Dwain Mills DPM Work Phone: [facility] 08-21-2023 14:09-0500 Diastolic blood pressure 62 mm[Hg] Dwain Mills DPM Work Phone: [facility] 08-21-2023 14:09-0500 Heart rate 84 /min Dwain Mills DPM Work Phone: [facility] 08-21-2023 14:09-0500 Systolic blood pressure 145 mm[Hg] Dwain Mills DPM Work Phone: [facility] 08-06-2023 16:00-0500 Diastolic blood pressure 65 mm[Hg] [facility] 08-06-2023 16:00-0500 Heart rate 80 /min [facility] 08-06-2023 16:00-0500 Respiratory rate 16 /min [facility] 08-06-2023 16:00-0500 SaO2% (BldA) [Mass fraction] 100 % [facility] 08-06-2023 16:00-0500 Systolic blood pressure 107 mm[Hg] [facility] 08-06-2023 12:48-0500 Inhaled oxygen flow rate 3 L/min [facility] 08-06-2023 11:08-0500 Body height 157.48 cm [facility] 08-06-2023 11:08-0500 Body weight 63.04 kg [facility] 08-04-2023 10:45-0500 Body height 160.66 cm Jolie De Luna Other [facility] [employer] Other 08-04-2023 10:45-0500 Body mass index (BMI) [Ratio] 24.43 kg/m2 Jolie De Luna Other [facility] [employer] Other 08-04-2023 10:45-0500 Body temperature 97.8 [degF] Jolie De Luna Other [employer] Other 08-04-2023 10:45-0500 Body weight 63.05 kg Jolie De Luna Other [employer] Other 08-04-2023 10:45-0500 Diastolic blood pressure 64 mm[Hg] Jolie De Luna Other [employer] Other 08-04-2023 10:45-0500 SaO2% (BldA) [Mass fraction] 98 % Jolie De Luna Other [employer] Other 08-04-2023 10:45-0500 Systolic blood pressure 110 mm[Hg] Jolie De Luna Other [employer] Other 06-25-2023 11:16-0500 Body height 157.5 cm Norman Braga MD Work Phone: [employer] 06-25-2023 11:16-0500 Body mass index (BMI) [Ratio] 25.79 kg/m2 Norman Braga MD Work Phone: [employer] 06-25-2023 11:16-0500 Body temperature 98.2 [degF] Norman Braga MD Work Phone: [employer] 06-25-2023 11:16-0500 Body weight 63.96 kg Norman Braga MD Work Phone: [employer] 05-20-2022 11:05-0500 Body height 160.66 cm Virginia Marti Other [employer] Other 05-20-2022 11:05-0500 Body mass index (BMI) [Ratio] 21.09 kg/m2 Virginia Marti Other [employer] Other 05-20-2022 11:05-0500 Body temperature 97.3 [degF] Virginia Marti Other [employer] Other 05-20-2022 11:05-0500 Body weight 54.43 kg Virginia Marti Other [employer] Other 05-20-2022 11:05-0500 Diastolic blood pressure 66 mm[Hg] Virginia Marti Other [employer] Other 05-20-2022 11:05-0500 Respiratory rate 18 /min Virginia Marti Other [employer] Other 05-20-2022 11:05-0500 SaO2% (BldA) [Mass fraction] 100 % Virginia Marti Other [facility] [employer] Other 05-20-2022 11:05-0500 Systolic blood pressure 112 mm[Hg] Virginia Marti Other [facility] Other 04-12-2021 15:45-0400 Body height 160.66 cm Antonio Julio Other [facility] Other 04-12-2021 15:45-0400 Body mass index (BMI) [Ratio] 25.3 kg/m2 Antonio Kim Other [facility] Other 04-12-2021 15:45-0400 Body weight 65.32 kg Antonio Kim Other [facility] Other 09-09-2019 10:00-0500 BP Diastolic 80 mm[Hg] [facility] 09-09-2019 10:00-0500 BP Systolic 138 mm[Hg] [facility] 09-09-2019 10:00-0500 Pulse (Heart Rate) 80 /min [facility] 09-09-2019 10:00-0500 Pulse Oximetry 96 % Tushar Russ [facility] 09-09-2019 10:00-0500 Respiratory Rate 16 /min [facility] 09-09-2019 08:20-0500 BMI (Body Mass Index) 25 kg/m2 [facility] 09-09-2019 08:20-0500 Body weight 63.95 kg [facility] 09-09-2019 08:20-0500 Height 160.02 cm [facility] 09-09-2019 07:10-0500 Body Temperature 97.9 [degF] Tushar [facility] 08-12-2019 09:55-0500 BP Diastolic 73 mm[Hg] [facility] 08-12-2019 09:55-0500 BP Systolic 132 mm[Hg] [facility] 08-12-2019 09:55-0500 Pulse (Heart Rate) 86 /min [facility] 08-12-2019 09:55-0500 Pulse Oximetry 97 % [facility] 08-12-2019 09:55-0500 Respiratory Rate 16 /min [facility] 08-12-2019 08:47-0500 BMI (Body Mass Index) 25.2 kg/m2 [facility] 08-12-2019 08:47-0500 Body weight 63.5 kg [facility] 08-12-2019 08:47-0500 Height 158.75 cm [facility] 08-12-2019 07:27-0500 Body Temperature 98.8 [degF] [facility] Encounters Encounter Date Encounter Type Care Provider Facility Start: 02-17-2024 End: 02-17-2024 ambulatory TRUNG FLORES Not Available Start: 10-23-2023 End: 10-23-2023 ambulatory MARIAMA INGRAM [facility] Start: 10-13-2023 ambulatory TUSHAR SOLANO [facility] Start: 10-13-2023 End: 10-15-2023 [facility] Start: 10-12-2023 End: 10-15-2023 Evaluation and management of inpatient Jonathan Pizarro DO Work Phone: [facility] - GEN 5 ICU Comment on above: Decompensated heart failure ([facility]-HCC) (Primary Dx); NSTEMI (non-ST elevated myocardial infarction) ([facility]-HCC) Start: 10-12-2023 Documentation procedure Jonathan Pizarro DO Work Phone: [facility] Director Marketing Analytics Sign In Start: 10-06-2023 End: 10-07-2023 Orders Only Cheikh Rodrigez [facility] Comment on above: 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) Start: 09-09-2023 End: 09-09-2023 ambulatory DWAIN MILLS Not Available Start: 08-22-2023 Telephone encounter Alida Holder [facility] Comment on above: Santyl Start: 08-21-2023 Bamboo flowsheet Dwain moore DPM Work Phone: [facility] Start: 08-21-2023 Bamboo flowsheet Dwain Rea tz DPM Work Phone: [facility] Start: 08-21-2023 End: 08-21-2023 Office outpatient visit 15 minutes Dwain Mills DPM Work Phone: [facility] Comment on above: 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); Gangrene (CMS/HCC); Pain in toe of right foot; Arteriosclerosis of arteries of extremities (CMS/HCC) Start: 08-21-2023 End: 08-21-2023 ambulatory DWAIN MILLS Not Available Start: 08-07-2023 End: 08-07-2023 ambulatory DWAIN MILLS Not Available Start: 08-06-2023 End: 08-06-2023 ambulatory Tushar Solano Facility:[facility] Start: 08-06-2023 Non-patient / Non-visit [facility] Work Phone: Start: 08-04-2023 End: 08-04-2023 ambulatory Jolie De Luna Other [facility] Other Start: 08-04-2023 FQ visit new patient Jolie harkins [facility] Start: 07-24-2023 End: 07-24-2023 ambulatory DWAIN MILLS Not Available Start: 06-25-2023 ambulatory NORMAN BRAGA [facility] Start: 06-25-2023 End: 06-25-2023 Office outpatient new 45 minutes Norman Braga MD Work Phone: [facility] Comment on above: Left knee pain, unsp ecified chronicity (Primary Dx) Start: 06-25-2023 End: 06-25-2023 Subsequent hospital visit by physician Norman Braga MD Work Phone: [facility] Start: 10-15-2022 End: 10-16-[address] TUSHAR SOLANO Facility:[facility] Start: 07-16-2022 End: 07-17-[address] TUSHAR SOLANO Facility:[facility] Start: 06-14-2022 End: 06-15-[address] TUSHAR SOLANO Facility:[facility] Start: 05-20-2022 Office outpatient vi sit 15 minutes Virginia Marti [facility] Start: 05-20-2022 End: 05-20-2022 ambulatory JR Tushar Solano Work Phone: [facility] Work Phone: Start: 05-20-2022 End: 05-20-2022 Patient encounter procedure JR Tushar Solano Work Phone: [facility] Start: 06-11-2021 End: 06-11-2021 ambulatory Antonio Kim Other [facility] [employer] Other Start: 06-11-2021 Telephone encounter Antonio Cardenas ck [facility] Start: 04-12-2021 Office outpatient ne w 45 minutes Antonio Kim [facility] Start: 11-09-2020 End: 11-09-2020 Telephone encounter No One (Historical) Referring Physician Comment on above: External Referrals/r esources Start: 09-09-2019 End: 09-09-2019 [facility] Start: 08-12-2019 End: 08-12-2019 [facility] Procedures Date Procedure Procedure Detail Performing Clinician Start: 10-23-2023 Follow-up visit Follow-up MARIAMA Víctor BETTSE Start: 10-15-2023 Assay of magnesium Nikolas Rodriguez HEAD SCREEN WORKER-SECTION HAND Work Phone: Start: 10-15-2023 Radiologic exam chest single view Kallie Roman MD Work Phone: Start: 10-15-2023 Basic metabolic panel calcium total Hazem Malas DO Work Phone: Start: 10-14-2023 Calcium ionized Parul Holder Jeb HEAD SCREEN WORKER-SECTION HAND Work Phone: Start: 10-14-2023 Lipid panel Kristyn Avila MD Work Phone: Start: 10-14-2023 Calcium ionized Parul Holder Jeb HEAD SCREEN WORKER-SECTION HAND Work Phone: Start: 10-14-2023 Cardiac catheterization Obdulia Grove MD Work Phone: Start: 10-14-2023 Basic metabolic panel calcium total Parul Holder Jeb HEAD SCREEN WORKER-SECTION HAND Work Phone: Start: 10-14-2023 Ecg routine ecg w/least 12 lds trcg only w/o i&r Parul Holder Jeb HEAD SCREEN WORKER-SECTION HAND Work Phone: Start: 10-13-2023 Calcium ionized Parul R Jeb HEAD SCREEN WORKER-SECTION HAND Work Phone: Start: 10-13-2023 Heparin assay Parul Holder Jeb HEAD SCREEN WORKER-SECTION HAND Work Phone: Start: 10-13-2023 Calcium ionized Hazem Malas DO Work Phone: Start: 10-13-2023 Echo tthrc r-t 2d w/wom-mode compl spec&colr d Parul Hassann HEAD SCREEN WORKER-SECTION HAND Work Phone: Start: 10-13-2023 Potassium serum plasma/whole blood Jonathan Pizarro DO Work Phone: Start: 10-13-2023 Basic metabolic panel calcium total Parul Gallo Jeb HEAD SCREEN WORKER-SECTION HAND Work Phone: Start: 10-13-2023 Basic metabolic panel calcium total Parul [place]n HEAD SCREEN WORKER-SECTION HAND Work Phone: Start: 10-13-2023 Ecg routine ecg w/least 12 lds trcg only w/o i&r Parul [place]cd[place]n HEAD SCREEN WORKER-SECTION HAND Work Phone: Start: 10-12-2023 Gluc bld gluc [...] Td Vaccines (2 - Td or Tdap) [facility] Start: 05-20-2032 Tetanus vaccination TETANUS [facility] Start: 05-19-2024 Adult BMI Screening Adult BMI Screen ing [facility] Start: 05-19-2024 Tobacco Screening Tobacco Screening [facility] Start: 11-13-2023 End: 11-13-2023 Patient encounter procedure 11/13/2023 2:30 PM EDT Office Visit [facility] [address] [place] [id number] Bernice Davis MD [address] [place] [address] [facility] Start: 10-16-2023 End: 10-16-2023 Patient encounter procedure 10/16/2023 1:30 PM EDT Office Visit [facility] [address] [place] [address] Genet Small, DO [address] [place] [address] [facility] Start: 09-09-2023 End: 09-09-2023 Patient encounter procedure 09/09/2023 10:15 AM EST Office Visit [facility] [address] [place] [phone] Dwain Mills, DPM [address] [place] [address] [facility] Start: 08-21-2023 End: 08-21-2023 Patient encounter procedure 08/21/2023 2:00 PM EST Office Visit [facility] [address] [place] [phone] Dwain Mills, DPM [address] [place] [address] Arrived [facility] Comment on above: Arrived Start: 08-06-2023 [facility] Start: 03-14-2023 Influenza vaccination [facility] Start: 2018 Fall Risk Screening Fall Risk Screen ing [facility] Start: 2018 Pneumococcal vaccination PNEUM OCOCCAL VACCINE SERIES (2 - PCV) [facility] Start: 11-20-2003 Administration of varicella zoster vaccine Zoster (Shingles) Vaccine (1 of 2) [facility] Start: 11-20-2003 Zoster vaccine hzv l pool for subcutaneous use ZOSTER (SHINGLES) VACCINE (1 of 2) [facility] Start: 1998 Screening for malign ant neoplasm of colon COLORECTAL CANCER SCREENING DISCUSSION [facility] Start: 1993 Lipid panel LIPID SCREENING [facility] Start: 1993 Screening for malign ant neoplasm of breast MAMMOGRAM SCREENING DISCUSSION [facility] Start: 1974 Screening for malign ant neoplasm of cervix CERVICAL CANCER SCREENING DISCUSSION [facility] Start: 1972 Third diphtheria, te tanus and acellular pertussis (DTaP) vaccination TDAP (ADULT) [facility] Start: 11-20-1971 Adult BMI Follow Up Plan Adult BMI Follow Up Plan [facility] Start: 1965 Depression Screening Depression Scre ening [facility] Start: 05-22-1954 COVID-19 VACCINE (#1) COVID-19 VACCI NE (#1) [facility] Start: 1953 Hepatitis C screening HEPATITI S C VIRUS SCREENING [facility] Start: 1953 Medicare Annual Well ness Visit Medicare Annual Wellness Visit [facility] Start: 1953 Screening for osteoporosis DEXA SCAN DISCUSSION [facility] Start: 1953 Thyroid stimulating hormone measurement TSH [facility] Patient Education Atherectomy - Angioplasty of a Noncoronary Vessel Arteriogram (DC) [facility] Work Phone: Patient referral [facility] Radiography for bone length studies XR BONE LENGTH STUDY Imaging Routine Left knee pain, unspecified chronicity 06/25/2023 10:28 AM [facility] Work Phone: XR Knee - left 4 Views XR KNEE L EFT 4+ VIEWS Imaging Routine Left knee pain, unspecified chronicity 06/25/2023 10:28 AM [facility] Immunizations Immunization Date Immunization Notes Care Provider Joe silva 05-20-2022 tetanus and diphther ia toxoids, adsorbed, preservative free, for adult use (5 Lf of tetanus toxoid and 2 Lf of diphtheria toxoid) Virginia Marti Other [facility] 05-21-2018 Seasonal trivalent influenza vaccine, adjuvanted, preservative free Cheikh Rain [facility] 05-21-2018 influenza virus vaccine, unspecified formulation Norman Braga MD Work Phone: [facility] 09-12-2014 pneumococcal polysaccharide vaccine, [address] [facility] NEGATED: Highlighted row has not occurred!02-16-2023 pneumococcal conjugate vaccine, [address] [facility] Payers Date Payer Category Payer Self-pay [id number] 2022 Medicare [id number] 2020 Unknown [employer] [id number] 2020-Present Indemnity [id number] 2018 Medicare MEDICARE MEDICAR E A AND B [id number] 2018-Present [place] Medicare [id number] 1959 Medicare [id number] 1959 Unknown [id number] 1959 Unknown [id number] 1953 Unknown [id number] 1953 Unknown [id number] [id number] 1953 Unknown [id number] [id number] 1953 Unknown [id number] [id number] 1953 Unknown [id number] [id number] 1953 Unknown [id number] [id number]8 6 1953 Unknown [id number] 2.16.840.1.115858.3.579.2.128 6 1953 Unknown [id number] 2.16.840.1.453730.3.579.2.128 6 1953 Unknown [id number] 2.16.840.1.939391.3.579.2.128 6 1953 Unknown [id number] 2.16.840.1.946767.3.579.2.125 9 1953 Unknown [id number] 2.16.840.1.291759.3.579.2.125 9 1953 Unknown [id number] 2.16.840.1.727714.3.579.2.125 9 1953 Unknown [id number] 2.16.840.1.811024.3.579.2.125 9 1953 Unknown [id number] [id number]5 9 Unknown [id number] Unknown [id number] [id number] Unknown [id number] Social History Date Type Detail Facility Start: 06-18-2016 End: 09-09-2019 Tobacco smoking status NHIS Never smoked tobacco (finding) [facility] Start: 1955 Sex Assigned At Female F [facility] Start: 1955 Sex Assigned At Not on file [facility] Start: 08-24-2020 End: 06-25-2023 Sex Assigned At [facility] [employer] Other Start: 06-18-2016 End: 06-25-2023 Tobacco use and exposure Smokeless tobacco [facility]user [facility] Start: 08-24-2020 End: 06-25-2023 History of Social function [facility] Start: 08-07-2023 End: 08-21-2023 Alcohol intake Lifetime non-drinker (finding) [facility] Start: 05-19-2023 End: 10-15-2023 Alcohol intake Current non-drinker of alcohol (finding) [facility] Unknown [employer] Has the agencyQ, [employer], [employer], or water company threatened to shut off services in your home in past 12Mo No [facility] How often to you hav e a drink containing alcohol? Never [facility] Medical Equipment Procedure Code Equipment Code Equipment Origin al Text Equipment Identifier Dates Phacoemulsification of cataract with intraocular lens implantation [id number] FDA Start: 08-12-2019 Phacoemulsification of cataract with intraocular lens implantation Posterior-chamber intraocular lens, pseudophakic ()[id number] FDA Start: 09-09-2019 Loop Recorder [facility] - [id number] - [id number] Start: 05-24-2016 System Cor Stnt 3.0mm X 12mm 145cm [employer] Harry - [id number] FDA Start: 02-15-2023 Goals Date Patient [...] Description: INTERVENTIONS: 1. Encourage patient or legal medical detail representative to report early pain and ask [...] per policy 9. Teach patient or legal medical detail representative interventions for comforting Outcome: Progressing Note: [...] at the bedside 7. Instruct patient/ patient medical detail representative about use of safety devices 8. Include patient/ patient medical detail representative in decisions related to safety Outcome: [...] hygiene technique 7. Identify and instruct patient/patient medical detail representative in use of appropriate isolation precautions for identified infection/symptoms 8. Provide and discuss with patient/patient medical detail representative on educational MDRO sheet 9. Encourage and monitor nutritional status daily and consult cable strander if indicated 10. Implement neutropenic guidelines as needed 11. Review exposure to history of communicable disease and recent travel history on admission 12. Encourage annual influenza vaccine 13. Encourage pneumonia vaccine Outcome: Progressing Note: Evaluation of progress towards goal: Patient remains free from infection due to hospitalization. Patient remains afebrile at this time. Problem: Knowledge Deficit Goal: Patient/patient medical detail representative demonstrates understanding of disease process, treatment plan, medications, and discharge instructions Description: INTERVENTIONS 1. Complete learning assessment and assess knowledge base 2. Provide teaching at level of understanding 3. Provide teaching via preferred learning method(s) Outcome: Progressing Note: Evaluation of progress towards goal: Patient demonstrates understanding of plan of care and treatment plan at this time. [facility] 10-15-2023 Miscellaneous Notes Problem: Pain Goal: Patient goal is pain score less than 4, able to rest, and participant in treatment plan as appropriate Description: INTERVENTIONS: 1. Encourage patient or legal medical detail representative to report early pain and ask [...] per policy 9. Teach patient or legal medical detail representative interventions for comforting Outcome: Progressing Note: [...] at the bedside 7. Instruct patient/ patient medical detail representative about use of safety devices 8. Include patient/ patient medical detail representative in decisions related to safety Outcome: [...] hygiene technique 7. Identify and instruct patient/patient medical detail representative in use of appropriate isolation precautions for identified infection/symptoms 8. Provide and discuss with patient/patient medical detail representative on educational MDRO sheet 9. Encourage and monitor nutritional status daily and consult cable strander if indicated 10. Implement neutropenic guidelines as needed 11. Review exposure to history of communicable disease and recent travel history on admission 12. Encourage annual influenza vaccine 13. Encourage pneumonia vaccine Outcome: Progressing Note: Evaluation of progress towards goal: Patient remains free from infection due to hospitalization. Patient remains afebrile at this time. Problem: Knowledge Deficit Goal: Patient/patient medical detail representative demonstrates understanding of disease process, treatment [...] Description: INTERVENTIONS: 1. Encourage patient or legal medical detail representative to report early pain and ask [...] per policy 9. Teach patient or legal medical detail representative interventions for comforting Outcome: Progressing Note: [...] at the bedside 7. Instruct patient/ patient medical detail representative about use of safety devices 8. Include patient/ patient medical detail representative in decisions related to safety Outcome: [...] hygiene technique 7. Identify and instruct patient/patient medical detail representative in use of appropriate isolation precautions for identified infection/symptoms 8. Provide and discuss with patient/patient medical detail representative on educational MDRO sheet 9. Encourage and monitor nutritional status daily and consult cable strander if indicated 10. Implement neutropenic guidelines as needed 11. Review exposure to history of communicable disease and recent travel history on admission 12. Encourage annual influenza vaccine 13. Encourage pneumonia vaccine Outcome: Progressing Note: Evaluation of progress towards goal: Pt afebrile and no outward signs of infection during shift. Problem: Knowledge Deficit Goal: Patient/patient medical detail representative demonstrates understanding of disease process, treatment [...] develop effective communication strategies 4. Include patient/patient medical detail representative in decisions related to communication Outcome: [...] Collaborate with ancillary departments 14. Include patient/patient medical detail representative in decisions related to anxiety Outcome: [...] to assist with coping 8. Involve patient's medical detail representative in care Outcome: Progressing Note: Evaluation [...] supplement as ordered 13. Collaborate with clinical cable strander 14. Include patient/ patient's medical detail representative in decisions related to nutrition Outcome: [...] Score of =/> 25 or indicated by [facility] Assessment Goal: Patient should be free from fall Description: Interventions: 1. [place] to environment 2. Hourly rounds addressing the [...] non-skid footwear 11. Teach patient and patient medical detail representative to maintain environment for safety and [...] (cane, walker) within reach 19. Request patient medical detail representative bring adaptive equipment/mobility aids from home or obtain and provide as needed 20. Consult pharmacy regarding effects of med's affecting mobility, cognition, and alternatives 21. Obtain physician order for PT if risk factors associated with mobility are present 22. Obtain physician order for OT as appropriate 23. Utilize diversional activities 24. Educate patient and patient medical detail representative how to maintain a safe environment during visitation times (notify nurse prior to leaving bedside) 25. Consider appropriateness of medical or non-biomedical engineering technician 26. Set up voiding schedule as appropriate (every 2 hours) Outcome: Progressing Note: Evaluation of progress towards goal: No signs of falls during shift. Problem: Pain Goal: Patient goal is pain score less than 4, able to rest, and participant in treatment plan as appropriate Description: INTERVENTIONS: 1. Encourage patient or legal medical detail representative to report early pain and ask [...] per policy 9. Teach patient or legal medical detail representative interventions for comforting Outcome: Progressing Note: [...] at the bedside 7. Instruct patient/ patient medical detail representative about use of safety devices 8. Include patient/ patient medical detail representative in decisions related to safety Outcome: [...] hygiene technique 7. Identify and instruct patient/patient medical detail representative in use of appropriate isolation precautions for identified infection/symptoms 8. Provide and discuss with patient/patient medical detail representative on educational MDRO sheet 9. Encourage and monitor nutritional status daily and consult cable strander if indicated 10. Implement neutropenic guidelines as needed 11. Review exposure to history of communicable disease and recent travel history on admission 12. Encourage annual influenza vaccine 13. Encourage pneumonia vaccine Outcome: Progressing Note: Evaluation of progress towards goal: Pt is afebrile at this time. Problem: Knowledge Deficit Goal: Patient/patient medical detail representative demonstrates understanding of disease process, treatment [...] Score of =/> 25 or indicated by [facility] Assessment Goal: Patient should be free from fall Description: Interventions: 1. [place] to environment 2. Hourly rounds addressing the [...] non-skid footwear 11. Teach patient and patient medical detail representative to maintain environment for safety and [...] (cane, walker) within reach 19. Request patient medical detail representative bring adaptive equipment/mobility aids from home or obtain and provide as needed 20. Consult pharmacy regarding effects of med's affecting mobility, cognition, and alternatives 21. Obtain physician order for PT if risk factors associated with mobility are present 22. Obtain physician order for OT as appropriate 23. Utilize diversional activities 24. Educate patient and patient medical detail representative how to maintain a safe environment during visitation times (notify nurse prior to leaving bedside) 25. Consider appropriateness of medical or non-biomedical engineering technician 26. Set up voiding schedule as appropriate (every 2 hours) Outcome: Progressing Note: Evaluation of progress towards goal: Pt is free from falls at this time. Pre Procedure Evaluation: H&P was reviewed and the patient was examined. No change has occurred in the patient's condition since the H&P was completed. 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 Crts Visit: ACS > 24hrs Chest Pain Symptom [...] Description: INTERVENTIONS: 1. Encourage patient or legal medical detail representative to report early pain and ask [...] per policy 9. Teach patient or legal medical detail representative interventions for comforting Outcome: Progressing Note: [...] at the bedside 7. Instruct patient/ patient medical detail representative about use of safety devices 8. Include patient/ patient medical detail representative in decisions related to safety Outcome: [...] hygiene technique 7. Identify and instruct patient/patient medical detail representative in use of appropriate isolation precautions for identified infection/symptoms 8. Provide and discuss with patient/patient medical detail representative on educational MDRO sheet 9. Encourage and monitor nutritional status daily and consult cable strander if indicated 10. Implement neutropenic guidelines as needed 11. Review exposure to history of communicable disease and recent travel history on admission 12. Encourage annual influenza vaccine 13. Encourage pneumonia vaccine Outcome: Progressing Note: Evaluation of progress towards goal: Patient afebrile and WBC of 5.3. Will continue to monitor for signs of infection Problem: Knowledge Deficit Goal: Patient/patient medical detail representative demonstrates understanding of disease process, treatment [...] develop effective communication strategies 4. Include patient/patient medical detail representative in decisions related to communication Outcome: [...] supplement as ordered 13. Collaborate with clinical cable strander 14. Include patient/ patient's medical detail representative in decisions related to nutrition Outcome: Progressing Note: Evaluation of progress towards goal: Collaborating with interdisciplinary team to ensure adequate nutritional intake. Problem: Moderate - High Risk Fall Score Description: [place] Fall Score of =/> 25 or indicated by [facility] Assessment Goal: Patient should be free from fall Description: Interventions: 1. [place] to environment 2. Hourly rounds addressing the [...] non-skid footwear 11. Teach patient and patient medical detail representative to maintain environment for safety and [...] (cane, walker) within reach 19. Request patient medical detail representative bring adaptive equipment/mobility aids from home or obtain and provide as needed 20. Consult pharmacy regarding effects of med's affecting mobility, cognition, and alternatives 21. Obtain physician order for PT if risk factors associated with mobility are present 22. Obtain physician order for OT as appropriate 23. Utilize diversional activities 24. Educate patient and patient medical detail representative how to maintain a safe environment during visitation times (notify nurse prior to leaving bedside) 25. Consider appropriateness of medical or non-biomedical engineering technician 26. Set up voiding schedule as appropriate [...] Description: INTERVENTIONS: 1. Encourage patient or legal medical detail representative to report early pain and ask [...] per policy 9. Teach patient or legal medical detail representative interventions for comforting Outcome: Progressing Note: [...] at the bedside 7. Instruct patient/ patient medical detail representative about use of safety devices 8. Include patient/ patient medical detail representative in decisions related to safety Outcome: [...] hygiene technique 7. Identify and instruct patient/patient medical detail representative in use of appropriate isolation precautions for identified infection/symptoms 8. Provide and discuss with patient/patient medical detail representative on educational MDRO sheet 9. Encourage and monitor nutritional status daily and consult cable strander if indicated 10. Implement neutropenic guidelines as needed 11. Review exposure to history of communicable disease and recent travel history on admission 12. Encourage annual influenza vaccine 13. Encourage pneumonia vaccine Outcome: Progressing Note: Evaluation of progress towards goal: Pt is afebrile at this time. Problem: Knowledge Deficit Goal: Patient/patient medical detail representative demonstrates understanding of disease process, treatment [...] Score of =/> 25 or indicated by [facility] Assessment Goal: Patient should be free from fall Description: Interventions: 1. [place] to environment 2. Hourly rounds addressing the [...] non-skid footwear 11. Teach patient and patient medical detail representative to maintain environment for safety and [...] (cane, walker) within reach 19. Request patient medical detail representative bring adaptive equipment/mobility aids from home or obtain and provide as needed 20. Consult pharmacy regarding effects of med's affecting mobility, cognition, and alternatives 21. Obtain physician order for PT if risk factors associated with mobility are present 22. Obtain physician order for OT as appropriate 23. Utilize diversional activities 24. Educate patient and patient medical detail representative how to maintain a safe environment during visitation times (notify nurse prior to leaving bedside) 25. Consider appropriateness of medical or non-biomedical engineering technician 26. Set up voiding schedule as appropriate [...] Description: INTERVENTIONS: 1. Encourage patient or legal medical detail representative to report early pain and ask [...] per policy 9. Teach patient or legal medical detail representative interventions for comforting Outcome: Progressing Note: [...] at the bedside 7. Instruct patient/ patient medical detail representative about use of safety devices 8. Include patient/ patient medical detail representative in decisions related to safety Outcome: [...] hygiene technique 7. Identify and instruct patient/patient medical detail representative in use of appropriate isolation precautions for identified infection/symptoms 8. Provide and discuss with patient/patient medical detail representative on educational MDRO sheet 9. Encourage and monitor nutritional status daily and consult cable strander if indicated 10. Implement neutropenic guidelines as needed 11. Review exposure to history of communicable disease and recent travel history on admission 12. Encourage annual influenza vaccine 13. Encourage pneumonia vaccine Outcome: Progressing Note: Evaluation of progress towards goal: Pt afebrile and no outward signs of infection during shift. Problem: Knowledge Deficit Goal: Patient/patient medical detail representative demonstrates understanding of disease process, treatment [...] develop effective communication strategies 4. Include patient/patient medical detail representative in decisions related to communication Outcome: [...] Collaborate with ancillary departments 14. Include patient/patient medical detail representative in decisions related to anxiety Outcome: [...] to assist with coping 8. Involve patient's medical detail representative in care Outcome: Progressing Note: Evaluation [...] supplement as ordered 13. Collaborate with clinical cable strander 14. Include patient/ patient's medical detail representative in decisions related to nutrition Outcome: [...] Score of =/> 25 or indicated by [facility] Assessment Goal: Patient should be free from fall Description: Interventions: 1. [place] to environment 2. Hourly rounds addressing the [...] non-skid footwear 11. Teach patient and patient medical detail representative to maintain environment for safety and [...] (cane, walker) within reach 19. Request patient medical detail representative bring adaptive equipment/mobility aids from home or obtain and provide as needed 20. Consult pharmacy regarding effects of med's affecting mobility, cognition, and alternatives 21. Obtain physician order for PT if risk factors associated with mobility are present 22. Obtain physician order for OT as appropriate 23. Utilize diversional activities 24. Educate patient and patient medical detail representative how to maintain a safe environment during visitation times (notify nurse prior to leaving bedside) 25. Consider appropriateness of medical or non-biomedical engineering technician 26. Set up voiding schedule as appropriate (every 2 hours) Outcome: Progressing Note: Evaluation of progress towards goal: No signs of falls during shift. documented in this encounter [facility] 10-15-2023 Hospital course Narrative Inpatient Discharge Summary BRIEF OVERVIEW Admitting Provider: Jonathan Pizarro DO Discharge Provider: Jonathan Pizarro DO Primary Care Physician at Discharge: TUSHAR SOLANO JR, DO [phone] Admission Date: 10/12/2023 Discharge Date: No discharge [...] 11/13/2023 2:30 PM Bernice Davis MD PM [facility] Referrals and Follow-ups to Schedule No dressing needed [facility] [place], [place] DETAILS OF HOSPITAL STAY Presenting Problem/History [...] were sent to [facility]/pharmacy #[id number] [place] [address] bisoprolol 5 mg tablet collagenase ointment dapagliflozin propanediol 10 mg tablet sacubitriL-valsartan 24-26 mg tablet spironolactone 25 mg tablet Kallie Roman MD PGY-3, Internal Medicine [facility] Associated attestation - Anup Reed [...] in 1 week documented in this encounter [facility] 10-15-2023 Hospital Discharge instructions Kallie Roman MD [...] week of discharge documented in this encounter [facility] [employer] 10-15-2023 History of Present illness Narrative Images [...] RCA in 2014. She also went to [facility] and had orbital arthrectomy of the circumflex, PCI of the distal circumflex, PCI of the mid to distal circumflex was overlapping stents and PCI proximal circumflex in 2020. She then locally had HARRY to circumflex 02/15/2023, prior stent to the LAD in 2007, prior CVA hypotension on chronic midodrine. Patient initially presented to [facility] with generalized weakness and shortness of breath. She was found to [place] decompensated [place] [address] as well as high sensitivity troponin greater than 26,000. Potassium was profoundly low at 2.6. She was transferred to [facility] for further management. She had a [...] be continued indefinitely given significant disease in [place]kat coronary arteries. Optimize medical therapy for coronary [...] be continued indefinitely given significant disease in [place] coronary arteries. Optimize medical therapy for coronary artery disease. Post percutaneous coronary intervention orders Remove sheath 2.5 hours after stopping Angiomax drip. Family updated CHER Mccoy APRN-CNP 10/14/23 1001 Images from the original note were not included. [facility] ACADEMIC SERVICE PROGRESS NOTE Ashvin Rene is a 67 y.o. 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 Optimize medical therapy for coronary [...] be continued indefinitely given significant disease in [place] coronary arteries. Optimize medical therapy for coronary [...] This note was completed using a voice marketing researcher system. Every effort was made to ensure accuracy. However, inadvertent computerized marketing researcher errors may be present. Associated attestation - [...] found to be in CHF with proBNP 74604, HS trop 40068, and K 2.1 which was repleted but [...] be continued indefinitely given significant disease in [place] coronary arteries. Optimize medical therapy for coronary [...] be continued indefinitely given significant disease in [place] coronary arteries. 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 Every effort was made to ensure accuracy. However, inadvertent computerized marketing researcher errors may be present. Associated attestation - Anup Reed MD - 10/13/2023 4:47 PM EDT See my separate note documented in this encounter [facility] 10-15-2023 Note XR CHEST 1 VW Procedure: Chest x-ray performed Number of views:AP view History:Hypoxia Comparison:10/12/2023 Findings: The heart and mediastinal silhouette are stable. There is pulmonary vascular congestion. There are no focal consolidations. There is a small left pleural effusion. There is no pneumothorax Impression: Pulmonary vascular congestion. Finalized by Kay Dunn DO on 10/15/2023 10:48 AM [facility] 10-15-2023 Note Procedure: Chest x-ray performed Number of views:AP view History:Hypoxia Comparison:10/12/2023 Findings: The heart and mediastinal silhouette are stable. There is pulmonary vascular congestion. There are no focal consolidations. There is a small left pleural effusion. There is no pneumothorax Impression: Pulmonary vascular congestion. Finalized by Kay Dunn DO on 10/15/2023 10:48 AM [facility] 10-14-2023 Plan of care note Problem: Pain Goal: Patient goal is pain score less than 4, able to rest, and participant in treatment plan as appropriate Description: INTERVENTIONS: 1. Encourage patient or legal medical detail representative to report early pain and ask [...] per policy 9. Teach patient or legal medical detail representative interventions for comforting Outcome: Progressing Note: [...] at the bedside 7. Instruct patient/ patient medical detail representative about use of safety devices 8. Include patient/ patient medical detail representative in decisions related to safety Outcome: [...] hygiene technique 7. Identify and instruct patient/patient medical detail representative in use of appropriate isolation precautions for identified infection/symptoms 8. Provide and discuss with patient/patient medical detail representative on educational MDRO sheet 9. Encourage and monitor nutritional status daily and consult cable strander if indicated 10. Implement neutropenic guidelines as needed 11. Review exposure to history of communicable disease and recent travel history on admission 12. Encourage annual influenza vaccine 13. Encourage pneumonia vaccine Outcome: Progressing Note: Evaluation of progress towards goal: Pt afebrile and no outward signs of infection during shift. Problem: Knowledge Deficit Goal: Patient/patient medical detail representative demonstrates understanding of disease process, treatment [...] develop effective communication strategies 4. Include patient/patient medical detail representative in decisions related to communication Outcome: [...] Collaborate with ancillary departments 14. Include patient/patient medical detail representative in decisions related to anxiety Outcome: [...] to assist with coping 8. Involve patient's medical detail representative in care Outcome: Progressing Note: Evaluation [...] supplement as ordered 13. Collaborate with clinical cable strander 14. Include patient/ patient's medical detail representative in decisions related to nutrition Outcome: [...] Moderate - High Risk Fall Score Description: [place] Fall Score of =/> 25 or indicated by [facility] Assessment Goal: Patient should be free from fall Description: Interventions: 1. [place] to environment 2. Hourly rounds addressing the [...] non-skid footwear 11. Teach patient and patient medical detail representative to maintain environment for safety and [...] (cane, walker) within reach 19. Request patient medical detail representative bring adaptive equipment/mobility aids from home or obtain and provide as needed 20. Consult pharmacy regarding effects of med's affecting mobility, cognition, and alternatives 21. Obtain physician order for PT if risk factors associated with mobility are present 22. Obtain physician order for OT as appropriate 23. Utilize diversional activities 24. Educate patient and patient medical detail representative how to maintain a safe environment during visitation times (notify nurse prior to leaving bedside) 25. Consider appropriateness of medical or non-biomedical engineering technician 26. Set up voiding schedule as appropriate (every 2 hours) Outcome: Progressing Note: Evaluation of progress towards goal: No signs of falls during shift. [facility] 10-14-2023 Plan of care note Problem: Pain Goal: Patient goal is pain score less than 4, able to rest, and participant in treatment plan as appropriate Description: INTERVENTIONS: 1. Encourage patient or legal medical detail representative to report early pain and ask [...] per policy 9. Teach patient or legal medical detail representative interventions for comforting Outcome: Progressing Note: [...] at the bedside 7. Instruct patient/ patient medical detail representative about use of safety devices 8. Include patient/ patient medical detail representative in decisions related to safety Outcome: [...] hygiene technique 7. Identify and instruct patient/patient medical detail representative in use of appropriate isolation precautions for identified infection/symptoms 8. Provide and discuss with patient/patient medical detail representative on educational MDRO sheet 9. Encourage and monitor nutritional status daily and consult cable strander if indicated 10. Implement neutropenic guidelines as needed 11. Review exposure to history of communicable disease and recent travel history on admission 12. Encourage annual influenza vaccine 13. Encourage pneumonia vaccine Outcome: Progressing Note: Evaluation of progress towards goal: Pt is afebrile at this time. Problem: Knowledge Deficit Goal: Patient/patient medical detail representative demonstrates understanding of disease process, treatment [...] Score of =/> 25 or indicated by [facility] Assessment Goal: Patient should be free from fall Description: Interventions: 1. [place] to environment 2. Hourly rounds addressing the [...] non-skid footwear 11. Teach patient and patient medical detail representative to maintain environment for safety and [...] (cane, walker) within reach 19. Request patient medical detail representative bring adaptive equipment/mobility aids from home or obtain and provide as needed 20. Consult pharmacy regarding effects of med's affecting mobility, cognition, and alternatives 21. Obtain physician order for PT if risk factors associated with mobility are present 22. Obtain physician order for OT as appropriate 23. Utilize diversional activities 24. Educate patient and patient medical detail representative how to maintain a safe environment during visitation times (notify nurse prior to leaving bedside) 25. Consider appropriateness of medical or non-biomedical engineering technician 26. Set up voiding schedule as appropriate (every 2 hours) Outcome: Progressing Note: Evaluation of progress towards goal: Pt is free from falls at this time. [facility] 10-14-2023 Procedure note Pre Procedure Evaluation: H&P was reviewed and the patient was examined. No change has occurred in the patient's condition since the H&P was completed. 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 Crts Visit: ACS > 24hrs Chest Pain Symptom Assessment: typical Cardiovascular Instability: No Heart Failure: Yes Congestive Heart Failure (NYHA Classification within 2 weeks): III Heart Failure Newly Diagnosed: No Heart Failure Type: Systolic Electrocardiac Assessment Method: None Stress Test Performed: No Cardiac CTA: No [facility] Clinical Frailty Scale (Assessment immediately prior to procedure): 6: Moderately Frail Cardiac Arrest Out of Hospital: No Cardiac Arrest at Transferring Facility: No [facility] 10-14-2023 Attending History and physical note HISTORY AND PHYSICAL INTERVAL NOTE: Ashvin Rene [phone] H&P reviewed. The patient was examined and there are no changes to the H&P. Alexi Freeman MD Source Note - Lenny Rodriguez MD - 10/12/2023 11:49 PM EDT Images from the original note were not included. [facility] [address] [place] [address] HISTORY & PHYSICAL / CONSULT NOTE Ashvin [...] found to be in CHF with proBNP 30131, HS trop 80366, and K 2.1 which was repleted but [...] Past Medical History: Diagnosis Date Angina pectoris ([facility]) Atherosclerosis of coronary artery bypass graft Atherosclerotic heart disease Coronary angioplasty status Coronary artery disease CVA (cerebral vascular accident) ([facility]) Dyspnea Hyperlipidemia Hypertension Hypotension Other chest pain Stroke ([facility]) Previous Surgical History: Past Surgical History: Procedure Laterality Date CARDIAC CATHETERIZATION Cardiac catheterization N/A 02/15/2023 Performed by Star Espinosa MD at [facility] CARDIAC CATH LABS Cardiac catheterization - LV cors w/graft check N/A 10/25/2020 Performed by Alexi Freeman MD at [facility] CARDIAC CATH LABS Coronary angiogram and graft/chilkat N/A 02/15/2023 Performed by Star Espinosa MD at [facility] CARDIAC CATH LABS Coronary angiogram and left ventricular gram/pressure + graft/chilkat N/A 10/25/2020 Performed by Alexi Freeman MD at [facility] CARDIAC CATH LABS Coronary angiogram and left ventricular gram/pressure + graft/chilkat N/A 06/18/2016 Performed by Alexi Freeman MD at [facility] CARDIAC CATH LABS CORONARY ANGIOPLASTY 12/08/2020 orbital atherectomy and 2 HARRY to prox and distal Circ, at [facility] per Dr. Madhav Ugalde CORONARY ARTERY BYPASS GRAFT 09/08/2014 HYSTERECTOMY INSERTION LOOP RECORDER 05/24/2016 Percutaneous coronary angioplasty left circumflex N/A 02/15/2023 Performed by Star Espinosa MD at [facility] CARDIAC CATH LABS Stent drug-eluting left circumflex N/A 02/15/2023 Performed by Star Espinosa MD at [facility] CARDIAC CATH LABS Allergies: Allergies Allergen [...] CHER Rincon [START ON 10/13/2023] heparin infusion 90244 units/500 mL in 0.45% NaCl (50 units/mL premix) 300-3,500 Units/hr intravenous Continuous CHER Rincon magnesium sulfate IVPB 2000 mg/50 mL in iso-osmotic water (40 mg/mL premix) 2,000 mg intravenous PRN Parul R Jeb, HEAD SCREEN WORKER-SECTION HAND Or magnesium sulfate IVPB 4000 mg/100 mL in iso-osmotic water (40 mg/mL premix) 4,000 mg intravenous PRN Parul R Jeb, HEAD SCREEN WORKER-SECTION HAND potassium chloride (K-TAB,KLOR-CON) CR tablet 20-50 mEq 20-50 mEq oral PRN Parul R Jeb, HEAD SCREEN WORKER-SECTION HAND Or potassium chloride (KAYCIEL) 20 mEq/15 mL solution 20-50 mEq 20-50 mEq oral PRN Parul R Jeb, HEAD SCREEN WORKER-SECTION HAND potassium chloride IVPB 10 mEq/50 mL in water (0.2 mEq/mL premix) 10 mEq intravenous PRN Parul R Jeb, HEAD SCREEN WORKER-SECTION HAND Or potassium chloride IVPB 10 mEq/100 mL in water (0.1 mEq/mL premix) 10 mEq intravenous PRN Parul R Jeb, HEAD SCREEN WORKER-SECTION HAND sodium phosphate 20 mmol in sodium chloride 0.9 % 250 mL IVPB 20 mmol intravenous PRN Parul R Jeb, HEAD SCREEN WORKER-SECTION HAND Or sodium phosphate 20 mmol in sodium chloride 0.9 % 100 mL IVPB 20 mmol intravenous PRN Parul R Jeb, HEAD SCREEN WORKER-SECTION HAND Or sod phos di, mono-K phos mono (K-PHOS NEUTRAL) 250 mg tablet 2 tablet 2 tablet oral PRN Parul R Jeb, HEAD SCREEN WORKER-SECTION HAND sodium chloride 0.9 % infusion 10 mL/hr intravenous Continuous PRN Parul R Jeb, HEAD SCREEN WORKER-SECTION HAND sodium chloride 0.9 % infusion 10 mL/hr intravenous Continuous PRN Parul R Jeb, HEAD SCREEN WORKER-SECTION HAND sodium chloride 0.9 % infusion 10 mL/hr intravenous Continuous PRN Parul R Jeb, HEAD SCREEN WORKER-SECTION HAND Home Meds: Prior to Admission medications Medication [...] be continued indefinitely given significant disease in [place] coronary arteries. Optimize medical therapy for coronary [...] be continued indefinitely given significant disease in [place] coronary arteries. Optimize medical therapy for coronary [...] Acute on chronic HFrEF Elevated HS troponin 38055 ASCVD h/o CABG and s/p PCI Cx [...] 75 mg oral Daily Parul R Jeb, HEAD SCREEN WORKER-SECTION HAND dextrose (GLUTOSE) 40 % gel 15 g 15 g oral PRN Parul Holder Jeb, HEAD SCREEN WORKER-SECTION HAND dextrose 5 % (D5W) infusion 100 mL/hr intravenous Continuous PRN Parul Hassann, HEAD SCREEN WORKER-SECTION HAND dextrose 50 % in water (D50W) 50% solution 25 mL 25 mL intravenous PRN Parul R Jeb, HEAD SCREEN WORKER-SECTION HAND glucagon HCL injection 1 mg 1 mg intramuscular PRN Parul Holder Jeb, HEAD SCREEN WORKER-SECTION HAND heparin (porcine) injection 2,000 Units 2,000 Units intravenous PRN Parul R Jeb, HEAD SCREEN WORKER-SECTION HAND heparin infusion 37123 units/500 mL in 0.45% NaCl (50 units/mL premix) 300-3,500 Units/hr intravenous Continuous Parul Holder Jeb, HEAD SCREEN WORKER-SECTION HAND 16 mL/hr at 10/13/23 0013 800 Units/hr at 10/13/23 0013 magnesium sulfate IVPB 2000 mg/50 mL in iso-osmotic water (40 mg/mL premix) 2,000 mg intravenous PRN Parul R Jeb, HEAD SCREEN WORKER-SECTION HAND Or magnesium sulfate IVPB 4000 mg/100 mL in iso-osmotic water (40 mg/mL premix) 4,000 mg intravenous PRN Parul Hassann, HEAD SCREEN WORKER-SECTION HAND midodrine (PROAMATINE) tablet 5 mg 5 mg oral Q8H PRN Parul R Jeb, HEAD SCREEN WORKER-SECTION HAND potassium chloride (K-TAB,KLOR-CON) CR tablet 20-50 mEq 20-50 mEq oral PRN Parul Holder Jeb, HEAD SCREEN WORKER-SECTION HAND Or potassium chloride (KAYCIEL) 20 mEq/15 mL solution 20-50 mEq 20-50 mEq oral PRN Parul R Jeb, HEAD SCREEN WORKER-SECTION HAND potassium chloride IVPB 10 mEq/50 mL in water (0.2 mEq/mL premix) 10 mEq intravenous PRN Parul R Jeb, HEAD SCREEN WORKER-SECTION HAND Or potassium chloride IVPB 10 mEq/100 mL in water (0.1 mEq/mL premix) 10 mEq intravenous PRN Parul R Jeb, HEAD SCREEN WORKER-SECTION HAND ranolazine (RANEXA) 12 hr tablet 1,000 mg 1,000 mg oral BID Parul R Jeb, HEAD SCREEN WORKER-SECTION HAND rosuvastatin (CRESTOR) tablet 20 mg 20 mg oral Daily Parul R Jeb, HEAD SCREEN WORKER-SECTION HAND sodium phosphate 20 mmol in sodium chloride 0.9 % 250 mL IVPB 20 mmol intravenous PRN Parul R Jeb, HEAD SCREEN WORKER-SECTION HAND Or sodium phosphate 20 mmol in sodium chloride 0.9 % 100 mL IVPB 20 mmol intravenous PRN Parul R Jeb, HEAD SCREEN WORKER-SECTION HAND Or sod phos di, mono-K phos mono (K-PHOS NEUTRAL) 250 mg tablet 2 tablet 2 tablet oral PRN Parul R Jeb, HEAD SCREEN WORKER-SECTION HAND sodium chloride 0.9 % infusion 10 mL/hr intravenous Continuous PRN Parul R Jeb, HEAD SCREEN WORKER-SECTION HAND sodium chloride 0.9 % infusion 10 mL/hr intravenous Continuous PRN Parul R Jeb, HEAD SCREEN WORKER-SECTION HAND sodium chloride 0.9 % infusion 10 mL/hr intravenous Continuous PRN Parul R Jeb, HEAD SCREEN WORKER-SECTION HAND Laboratory CBC: BMP: Troponin I Physical Exam [...] This note was completed using a voice marketing researcher system. Every effort was made to ensure accuracy. However, inadvertent computerized marketing researcher errors may be present. [employer] [facility] Work Phone: 10-14-2023 History and physical note HISTORY AND PHYSICAL INTERVAL NOTE: Ashvin Rene [id number] H&P reviewed. The patient was examined and there are no changes to the H&P. Alexi Freeman MD Source Note - Lenny Rodriguez MD - 10/12/2023 11:49 PM EDT Images from the original note were not included. [facility] [address] [place] [address] HISTORY & PHYSICAL / CONSULT NOTE Ashvin [...] found to be in CHF with proBNP 45517, HS trop 36151, and K 2.1 which was repleted but [...] Past Medical History: Diagnosis Date Angina pectoris ([facility]) Atherosclerosis of coronary artery bypass graft Atherosclerotic heart disease Coronary angioplasty status Coronary artery disease CVA (cerebral vascular accident) ([facility]) Dyspnea Hyperlipidemia Hypertension Hypotension Other chest pain Stroke ([facility]) Previous Surgical History: Past Surgical History: Procedure Laterality Date CARDIAC CATHETERIZATION Cardiac catheterization N/A 02/15/2023 Performed by Star Espinosa MD at [facility] Cardiac catheterization - LV cors w/graft check N/A 10/25/2020 Performed by Alexi Freeman MD at [facility]ATH [facility] Coronary angiogram and graft/chilkat N/A 02/15/2023 Performed by Star Espinosa MD at [facility]ATH [facility] Coronary angiogram and left ventricular gram/pressure + graft/chilkat N/A 10/25/2020 Performed by Alexi Freeman MD at [facility]ATH [facility] Coronary angiogram and left ventricular gram/pressure + graft/chilkat N/A 06/18/2016 Performed by Alexi Freeman MD at [facility]ATH [facility] CORONARY ANGIOPLASTY 12/08/2020 orbital atherectomy and 2 HARRY to prox and distal Circ, at [facility] per Dr. Madhav Ugalde CORONARY ARTERY BYPASS GRAFT 09/08/2014 HYSTERECTOMY INSERTION LOOP RECORDER 05/24/2016 Percutaneous coronary angioplasty left circumflex N/A 02/15/2023 Performed by Star Espinosa MD at [facility]ATH [facility] Stent drug-eluting left circumflex N/A 02/15/2023 Performed by Star Espinosa MD at [facility]ATH [facility] Allergies: Allergies Allergen Reactions Aspirin-Dipyridamole aggronox Atorvastatin Hives lipitor Cefadroxil duricef Codeine Fenofibrate Micronized tricor Fluvoxamine luvox Nefazodone serzone Niacin Other reaction(s): Intolerance-unknown Hospital Meds: Current Facility-Administered Medications Medication Dose Route Frequency Provider Last Rate Last Admin calcium gluconate IVPB 1000 mg/50 mL (20 mg/mL premix) 1,000 mg intravenous PRN Parul John APRN-SECTION HAND Or calcium gluconate IVPB 2000 mg/100 mL (20 mg/mL premix) 2,000 mg intravenous PRN Parul John, HEAD SCREEN WORKER-SECTION HAND Or calcium gluconate 3,000 mg in sodium chloride 0.9 % 100 mL IVPB 3,000 mg intravenous PRN Parul John HEAD SCREEN WORKER-SECTION HAND dextrose (GLUTOSE) 40 % gel 15 g 15 g oral PRN Parul John HEAD SCREEN WORKER-SECTION HAND dextrose 5 % (D5W) infusion 100 mL/hr intravenous Continuous PRN Parul John HEAD SCREEN WORKER-SECTION HAND dextrose 50 % in water (D50W) 50% solution 25 mL 25 mL intravenous PRN Parul R Jeb, HEAD SCREEN WORKER-SECTION HAND glucagon HCL injection 1 mg 1 mg intramuscular PRN Parul R Jeb, HEAD SCREEN WORKER-SECTION HAND heparin (porcine) injection 2,000 Units 2,000 Units intravenous PRN Parul R Jeb, HEAD SCREEN WORKER-SECTION HAND [START ON 10/13/2023] heparin infusion 03457 units/500 mL in 0.45% NaCl (50 units/mL premix) 300-3,500 Units/hr intravenous Continuous Parul R Jeb, HEAD SCREEN WORKER-SECTION HAND magnesium sulfate IVPB 2000 mg/50 mL in iso-osmotic water (40 mg/mL premix) 2,000 mg intravenous PRN Parul R Jeb, HEAD SCREEN WORKER-SECTION HAND Or magnesium sulfate IVPB 4000 mg/100 mL in iso-osmotic water (40 mg/mL premix) 4,000 mg intravenous PRN Parul R Jeb, HEAD SCREEN WORKER-SECTION HAND potassium chloride (K-TAB,KLOR-CON) CR tablet 20-50 mEq 20-50 mEq oral PRN Parul R Jeb, HEAD SCREEN WORKER-SECTION HAND Or potassium chloride (KAYCIEL) 20 mEq/15 mL solution 20-50 mEq 20-50 mEq oral PRN Parul R Jeb, HEAD SCREEN WORKER-SECTION HAND potassium chloride IVPB 10 mEq/50 mL in water (0.2 mEq/mL premix) 10 mEq intravenous PRN Parul R Jeb, HEAD SCREEN WORKER-SECTION HAND Or potassium chloride IVPB 10 mEq/100 mL in water (0.1 mEq/mL premix) 10 mEq intravenous PRN Parul R Jeb, HEAD SCREEN WORKER-SECTION HAND sodium phosphate 20 mmol in sodium chloride 0.9 % 250 mL IVPB 20 mmol intravenous PRN Parul R Jeb, HEAD SCREEN WORKER-SECTION HAND Or sodium phosphate 20 mmol in sodium chloride 0.9 % 100 mL IVPB 20 mmol intravenous PRN Parul R Jeb, HEAD SCREEN WORKER-SECTION HAND Or sod phos di, mono-K phos mono (K-PHOS NEUTRAL) 250 mg tablet 2 tablet 2 tablet oral PRN Parul R Jeb, HEAD SCREEN WORKER-SECTION HAND sodium chloride 0.9 % infusion 10 mL/hr intravenous Continuous PRN Parul R Jeb, HEAD SCREEN WORKER-SECTION HAND sodium chloride 0.9 % infusion 10 mL/hr intravenous Continuous PRN Parul R Jeb, HEAD SCREEN WORKER-SECTION HAND sodium chloride 0.9 % infusion 10 mL/hr [...] be continued indefinitely given significant disease in [place] coronary arteries. Optimize medical therapy for coronary [...] be continued indefinitely given significant disease in [place] coronary arteries. Optimize medical therapy for coronary [...] Acute on chronic HFrEF Elevated HS troponin 84760 ASCVD h/o CABG and s/p PCI Cx [...] mg 81 mg oral Daily Parul John, HEAD SCREEN WORKER-SECTION HAND calcium gluconate IVPB 1000 mg/50 mL (20 mg/mL premix) 1,000 mg intravenous PRN Parul Hassann, HEAD SCREEN WORKER-SECTION HAND Or calcium gluconate IVPB 2000 mg/100 mL (20 mg/mL premix) 2,000 mg intravenous PRN Parul Hassann, HEAD SCREEN WORKER-SECTION HAND Or calcium gluconate 3,000 mg in sodium chloride 0.9 % 100 mL IVPB 3,000 mg intravenous PRN Parul John, HEAD SCREEN WORKER-SECTION HAND clopidogreL (PLAVIX) tablet 75 mg 75 mg oral Daily Parul John, HEAD SCREEN WORKER-SECTION HAND dextrose (GLUTOSE) 40 % gel 15 g 15 g oral PRN Parul John, HEAD SCREEN WORKER-SECTION HAND dextrose 5 % (D5W) infusion 100 mL/hr intravenous Continuous PRN Parul John, HEAD SCREEN WORKER-SECTION HAND dextrose 50 % in water (D50W) 50% solution 25 mL 25 mL intravenous PRN Parul John, HEAD SCREEN WORKER-SECTION HAND glucagon HCL injection 1 mg 1 mg intramuscular PRN Parul John, HEAD SCREEN WORKER-SECTION HAND heparin (porcine) injection 2,000 Units 2,000 Units intravenous PRN Parul John, HEAD SCREEN WORKER-SECTION HAND heparin infusion 58372 units/500 mL in 0.45% NaCl (50 units/mL premix) 300-3,500 Units/hr intravenous Continuous Parul John, HEAD SCREEN WORKER-SECTION HAND 16 mL/hr at 10/13/23 0013 800 Units/hr at 10/13/23 0013 magnesium sulfate IVPB 2000 mg/50 mL in iso-osmotic water (40 mg/mL premix) 2,000 mg intravenous PRN Parul Hassann, HEAD SCREEN WORKER-SECTION HAND Or magnesium sulfate IVPB 4000 mg/100 mL in iso-osmotic water (40 mg/mL premix) 4,000 mg intravenous PRN Parul John, HEAD SCREEN WORKER-SECTION HAND midodrine (PROAMATINE) tablet 5 mg 5 mg oral Q8H PRN Parul John, HEAD SCREEN WORKER-SECTION HAND potassium chloride (K-TAB,KLOR-CON) CR tablet 20-50 mEq 20-50 mEq oral PRN Parul Hassann, HEAD SCREEN WORKER-SECTION HAND Or potassium chloride (KAYCIEL) 20 mEq/15 mL solution 20-50 mEq 20-50 mEq oral PRN Parul R Jeb, HEAD SCREEN WORKER-SECTION HAND potassium chloride IVPB 10 mEq/50 mL in water (0.2 mEq/mL premix) 10 mEq intravenous PRN Parul R Jeb, HEAD SCREEN WORKER-SECTION HAND Or potassium chloride IVPB 10 mEq/100 mL in water (0.1 mEq/mL premix) 10 mEq intravenous PRN Parul R Jeb, HEAD SCREEN WORKER-SECTION HAND ranolazine (RANEXA) 12 hr tablet 1,000 mg 1,000 mg oral BID Parul R Ejb, HEAD SCREEN WORKER-SECTION HAND rosuvastatin (CRESTOR) tablet 20 mg 20 mg oral Daily Parul Mcdowellfern, HEAD SCREEN WORKER-SECTION HAND sodium phosphate 20 mmol in sodium chloride 0.9 % 250 mL IVPB 20 mmol intravenous PRN Parul R Jeb, HEAD SCREEN WORKER-SECTION HAND Or sodium phosphate 20 mmol in sodium chloride 0.9 % 100 mL IVPB 20 mmol intravenous PRN Parul R Jeb, HEAD SCREEN WORKER-SECTION HAND Or sod phos di, mono-K phos mono (K-PHOS NEUTRAL) 250 mg tablet 2 tablet 2 tablet oral PRN Parul R Jeb, HEAD SCREEN WORKER-SECTION HAND sodium chloride 0.9 % infusion 10 mL/hr intravenous Continuous PRN Parul R Jeb, HEAD SCREEN WORKER-SECTION HAND sodium chloride 0.9 % infusion 10 mL/hr intravenous Continuous PRN Parul R Jeb, HEAD SCREEN WORKER-SECTION HAND sodium chloride 0.9 % infusion 10 mL/hr intravenous Continuous PRN Parul R Jeb, HEAD SCREEN WORKER-SECTION HAND Laboratory CBC: BMP: Troponin I Physical Exam [...] with midodrine also prescribed 7. Hyperlipidemia --rosuvastatin LNENY Rodriguez MD This note was completed using a voice marketing researcher system. Every effort was made to ensure accuracy. However, inadvertent computerized marketing researcher errors may be present. Images from the original note were not included. [facility] [address] [place] [address] HISTORY & PHYSICAL / CONSULT NOTE Ashvin [...] found to be in CHF with proBNP 15937, HS trop 58515, and K 2.1 which was repleted but [...] Past Medical History: Diagnosis Date Angina pectoris ([facility]) Atherosclerosis of coronary artery bypass graft Atherosclerotic heart disease Coronary angioplasty status Coronary artery disease CVA (cerebral vascular accident) ([facility]) Dyspnea Hyperlipidemia Hypertension Hypotension Other chest pain Stroke ([facility]) Previous Surgical History: Past Surgical History: Procedure Laterality Date CARDIAC CATHETERIZATION Cardiac catheterization N/A 02/15/2023 Performed by Star Espinosa MD at [facility] Cardiac catheterization - LV cors w/graft check N/A 10/25/2020 Performed by Alexi Freeman MD at [facility] Coronary angiogram and graft/chilkat N/A 02/15/2023 Performed by Star Espinosa MD at [facility] Coronary angiogram and left ventricular gram/pressure + graft/chilkat N/A 10/25/2020 Performed by Alexi Freeman MD at [facility]ATH [facility] Coronary angiogram and left ventricular gram/pressure + graft/chilkat N/A 06/18/2016 Performed by Alexi Freeman MD at [facility] CORONARY ANGIOPLASTY 12/08/2020 orbital atherectomy and 2 HARRY to prox and distal Circ, at [facility] per Dr. Madhav Ugalde CORONARY ARTERY BYPASS GRAFT 09/08/2014 HYSTERECTOMY INSERTION LOOP RECORDER 05/24/2016 Percutaneous coronary angioplasty left circumflex N/A 02/15/2023 Performed by Star Espinosa MD at [facility]ATH [facility] Stent drug-eluting left circumflex N/A 02/15/2023 Performed by Star Espinosa MD at [facility] Allergies: Allergies Allergen [...] premix) 2,000 mg intravenous PRN Parul John APRN-SECTION HAND Or calcium gluconate 3,000 mg in sodium chloride 0.9 % 100 mL IVPB 3,000 mg intravenous PRN Parul John APRN-SUNIL dextrose (GLUTOSE) 40 % gel 15 g 15 g oral PRN Parul John APRN-SECTION HAND dextrose 5 % (D5W) infusion 100 mL/hr intravenous Continuous PRN Parul John APRN-SUNIL dextrose 50 % in water (D50W) 50% solution 25 mL 25 mL intravenous PRN Parul R Jeb, HEAD SCREEN WORKER-SECTION HAND glucagon HCL injection 1 mg 1 mg intramuscular PRN Parul R Jeb, HEAD SCREEN WORKER-SECTION HAND heparin (porcine) injection 2,000 Units 2,000 Units intravenous PRN Parul R Jeb, HEAD SCREEN WORKER-SECTION HAND [START ON 10/13/2023] heparin infusion 26636 units/500 mL in 0.45% NaCl (50 units/mL premix) 300-3,500 Units/hr intravenous Continuous Parul R Jeb, HEAD SCREEN WORKER-SECTION HAND magnesium sulfate IVPB 2000 mg/50 mL in iso-osmotic water (40 mg/mL premix) 2,000 mg intravenous PRN Parul R Jeb, HEAD SCREEN WORKER-SECTION HAND Or magnesium sulfate IVPB 4000 mg/100 mL in iso-osmotic water (40 mg/mL premix) 4,000 mg intravenous PRN Parul R Jeb, HEAD SCREEN WORKER-SECTION HAND potassium chloride (K-TAB,KLOR-CON) CR tablet 20-50 mEq 20-50 mEq oral PRN Parul R Jeb, HEAD SCREEN WORKER-SECTION HAND Or potassium chloride (KAYCIEL) 20 mEq/15 mL solution 20-50 mEq 20-50 mEq oral PRN Parul R Jeb, HEAD SCREEN WORKER-SECTION HAND potassium chloride IVPB 10 mEq/50 mL in water (0.2 mEq/mL premix) 10 mEq intravenous PRN Parul R Jeb, HEAD SCREEN WORKER-SECTION HAND Or potassium chloride IVPB 10 mEq/100 mL in water (0.1 mEq/mL premix) 10 mEq intravenous PRN Parul R Jeb, HEAD SCREEN WORKER-SECTION HAND sodium phosphate 20 mmol in sodium chloride 0.9 % 250 mL IVPB 20 mmol intravenous PRN Parul R Jeb, HEAD SCREEN WORKER-SECTION HAND Or sodium phosphate 20 mmol in sodium chloride 0.9 % 100 mL IVPB 20 mmol intravenous PRN Parul R Jeb, HEAD SCREEN WORKER-SECTION HAND Or sod phos di, mono-K phos mono (K-PHOS NEUTRAL) 250 mg tablet 2 tablet 2 tablet oral PRN Parul R Jeb, HEAD SCREEN WORKER-SECTION HAND sodium chloride 0.9 % infusion 10 mL/hr intravenous Continuous PRN Parul R Jeb, HEAD SCREEN WORKER-SECTION HAND sodium chloride 0.9 % infusion 10 mL/hr intravenous Continuous PRN Parul R Jeb, HEAD SCREEN WORKER-SECTION HAND sodium chloride 0.9 % infusion 10 mL/hr [...] be continued indefinitely given significant disease in [place] coronary arteries. Optimize medical therapy for coronary [...] be continued indefinitely given significant disease in [place] coronary arteries. Optimize medical therapy for coronary [...] Acute on chronic HFrEF Elevated HS troponin 35794 ASCVD h/o CABG and s/p PCI Cx 03/05 Ischemic cardiomyopathy EF 35-40% Hypokalemia Chronic hypotension on midodrine Dyslipidemia Trend troponins Recheck electrolytes IV diuresis Continue Heparin gtt Continue DAPT Unable to titrate GDMT given HOTN Recheck echo PARUL JOHN, NICK-SECTION HAND Parul John APRN-SUNIL 10/13/23 0016 [facility] [...] mg 81 mg oral Daily Parul John, HEAD SCREEN WORKER-SECTION HAND calcium gluconate IVPB 1000 mg/50 mL (20 mg/mL premix) 1,000 mg intravenous PRN Parul Hassann, HEAD SCREEN WORKER-SECTION HAND Or calcium gluconate IVPB 2000 mg/100 mL (20 mg/mL premix) 2,000 mg intravenous PRN Parul John, HEAD SCREEN WORKER-SECTION HAND Or calcium gluconate 3,000 mg in sodium chloride 0.9 % 100 mL IVPB 3,000 mg intravenous PRN Parul John, HEAD SCREEN WORKER-SECTION HAND clopidogreL (PLAVIX) tablet 75 mg 75 mg oral Daily Parul John, HEAD SCREEN WORKER-SECTION HAND dextrose (GLUTOSE) 40 % gel 15 g 15 g oral PRN Parul John, HEAD SCREEN WORKER-SECTION HAND dextrose 5 % (D5W) infusion 100 mL/hr intravenous Continuous PRN Parul John, HEAD SCREEN WORKER-SECTION HAND dextrose 50 % in water (D50W) 50% solution 25 mL 25 mL intravenous PRN Parul John, HEAD SCREEN WORKER-SECTION HAND glucagon HCL injection 1 mg 1 mg intramuscular PRN Parul John, HEAD SCREEN WORKER-SECTION HAND heparin (porcine) injection 2,000 Units 2,000 Units intravenous PRN Parul John, HEAD SCREEN WORKER-SECTION HAND heparin infusion 23306 units/500 mL in 0.45% NaCl (50 units/mL premix) 300-3,500 Units/hr intravenous Continuous Parul John, HEAD SCREEN WORKER-SECTION HAND 16 mL/hr at 10/13/23 0013 800 Units/hr at 10/13/23 0013 magnesium sulfate IVPB 2000 mg/50 mL in iso-osmotic water (40 mg/mL premix) 2,000 mg intravenous PRN Parul John, HEAD SCREEN WORKER-SECTION HAND Or magnesium sulfate IVPB 4000 mg/100 mL in iso-osmotic water (40 mg/mL premix) 4,000 mg intravenous PRN Parul John, HEAD SCREEN WORKER-SECTION HAND midodrine (PROAMATINE) tablet 5 mg 5 mg oral Q8H PRN Parul John, HEAD SCREEN WORKER-SECTION HAND potassium chloride (K-TAB,KLOR-CON) CR tablet 20-50 mEq 20-50 mEq oral PRN Parul John, HEAD SCREEN WORKER-SECTION HAND Or potassium chloride (KAYCIEL) 20 mEq/15 mL solution 20-50 mEq 20-50 mEq oral PRN Parul R Jeb, HEAD SCREEN WORKER-SECTION HAND potassium chloride IVPB 10 mEq/50 mL in water (0.2 mEq/mL premix) 10 mEq intravenous PRN Parul R Jeb, HEAD SCREEN WORKER-SECTION HAND Or potassium chloride IVPB 10 mEq/100 mL in water (0.1 mEq/mL premix) 10 mEq intravenous PRN Parul R Jeb, HEAD SCREEN WORKER-SECTION HAND ranolazine (RANEXA) 12 hr tablet 1,000 mg 1,000 mg oral BID Parul Hassann, HEAD SCREEN WORKER-SECTION HAND rosuvastatin (CRESTOR) tablet 20 mg 20 mg oral Daily Parul Hassann, HEAD SCREEN WORKER-SECTION HAND sodium phosphate 20 mmol in sodium chloride 0.9 % 250 mL IVPB 20 mmol intravenous PRN Parul R Jeb, HEAD SCREEN WORKER-SECTION HAND Or sodium phosphate 20 mmol in sodium chloride 0.9 % 100 mL IVPB 20 mmol intravenous PRN Parul Hassann, HEAD SCREEN WORKER-SECTION HAND Or sod phos di, mono-K phos mono (K-PHOS NEUTRAL) 250 mg tablet 2 tablet 2 tablet oral PRN Parul R Jeb, HEAD SCREEN WORKER-SECTION HAND sodium chloride 0.9 % infusion 10 mL/hr intravenous Continuous PRN Parul R Jeb, HEAD SCREEN WORKER-SECTION HAND sodium chloride 0.9 % infusion 10 mL/hr intravenous Continuous PRN Parul R Jeb, HEAD SCREEN WORKER-SECTION HAND sodium chloride 0.9 % infusion 10 mL/hr intravenous Continuous PRN Parul R Jeb, HEAD SCREEN WORKER-SECTION HAND Laboratory CBC: BMP: Troponin I Physical Exam [...] This note was completed using a voice marketing researcher system. Every effort was made to ensure accuracy. However, inadvertent computerized marketing researcher errors may be present. documented [facility] this encounter [facility] Adjusted CathPCI Bleeding Event [...] is an appropriate candidate for the procedure. [facility] Plan of care note Problem: Pain Goal: Patient goal is pain score less than 4, able to rest, and participant in treatment plan as appropriate Description: INTERVENTIONS: 1. Encourage patient or legal medical detail representative to report early pain and ask [...] per policy 9. Teach patient or legal medical detail representative interventions for comforting Outcome: Progressing Note: [...] at the bedside 7. Instruct patient/ patient medical detail representative about use of safety devices 8. Include patient/ patient medical detail representative in decisions related to safety Outcome: [...] hygiene technique 7. Identify and instruct patient/patient medical detail representative in use of appropriate isolation precautions for identified infection/symptoms 8. Provide and discuss with patient/patient medical detail representative on educational MDRO sheet 9. Encourage and monitor nutritional status daily and consult cable strander if indicated 10. Implement neutropenic guidelines as needed 11. Review exposure to history of communicable disease and recent travel history on admission 12. Encourage annual influenza vaccine 13. Encourage pneumonia vaccine Outcome: Progressing Note: Evaluation of progress towards goal: Patient afebrile and WBC of 5.3. Will continue to monitor for signs of infection Problem: Knowledge Deficit Goal: Patient/patient medical detail representative demonstrates understanding of disease process, treatment [...] develop effective communication strategies 4. Include patient/patient medical detail representative in decisions related to communication Outcome: [...] supplement as ordered 13. Collaborate with clinical cable strander 14. Include patient/ patient's medical detail representative in decisions related to nutrition Outcome: Progressing Note: Evaluation of progress towards goal: Collaborating with interdisciplinary team to ensure adequate nutritional intake. Problem: Moderate - High Risk Fall Score Description: Beal Fall Score of =/> 25 or indicated by [facility] Assessment Goal: Patient should be free from fall Description: Interventions: 1. [place] to environment 2. Hourly rounds addressing the [...] non-skid footwear 11. Teach patient and patient medical detail representative to maintain environment for safety and [...] (cane, walker) within reach 19. Request patient medical detail representative bring adaptive equipment/mobility aids from home or obtain and provide as needed 20. Consult pharmacy regarding effects of med's affecting mobility, cognition, and alternatives 21. Obtain physician order for PT if risk factors associated with mobility are present 22. Obtain physician order for OT as appropriate 23. Utilize diversional activities 24. Educate patient and patient medical detail representative how to maintain a safe environment during visitation times (notify nurse prior to leaving bedside) 25. Consider appropriateness of medical or non-biomedical engineering technician 26. Set up voiding schedule as appropriate (every 2 hours) Outcome: Progressing Note: Evaluation of progress towards goal: Area clear of hazards. Bed locked and in lowest position. Side rails up. Hourly rounding complete. Pt remains free from falls at this time. [facility] 10-13-2023 Plan of care note Problem: Pain Goal: Patient goal is pain score less than 4, able to rest, and participant in treatment plan as appropriate Description: INTERVENTIONS: 1. Encourage patient or legal medical detail representative to report early pain and ask [...] per policy 9. Teach patient or legal medical detail representative interventions for comforting Outcome: Progressing Note: [...] at the bedside 7. Instruct patient/ patient medical detail representative about use of safety devices 8. Include patient/ patient medical detail representative in decisions related to safety Outcome: [...] hygiene technique 7. Identify and instruct patient/patient medical detail representative in use of appropriate isolation precautions for identified infection/symptoms 8. Provide and discuss with patient/patient medical detail representative on educational MDRO sheet 9. Encourage and monitor nutritional status daily and consult cable strander if indicated 10. Implement neutropenic guidelines as needed 11. Review exposure to history of communicable disease and recent travel history on admission 12. Encourage annual influenza vaccine 13. Encourage pneumonia vaccine Outcome: Progressing Note: Evaluation of progress towards goal: Pt is afebrile at this time. Problem: Knowledge Deficit Goal: Patient/patient medical detail representative demonstrates understanding of disease process, treatment [...] Score of =/> 25 or indicated by [facility] Assessment Goal: Patient should be free from fall Description: Interventions: 1. [place] to environment 2. Hourly rounds addressing the [...] non-skid footwear 11. Teach patient and patient medical detail representative to maintain environment for safety and [...] (cane, walker) within reach 19. Request patient medical detail representative bring adaptive equipment/mobility aids from home or obtain and provide as needed 20. Consult pharmacy regarding effects of med's affecting mobility, cognition, and alternatives 21. Obtain physician order for PT if risk factors associated with mobility are present 22. Obtain physician order for OT as appropriate 23. Utilize diversional activities 24. Educate patient and patient medical detail representative how to maintain a safe environment during visitation times (notify nurse prior to leaving bedside) 25. Consider appropriateness of medical or non-biomedical engineering technician 26. Set up voiding schedule as appropriate (every 2 hours) Outcome: Progressing Note: Evaluation of progress towards goal: Pt is free from falls at this time. [facility] Progress note Formatting of t his note might be different from the original. Pt comfortable. No chest pain. No sob on 2 L ECG without sig ST abn Tr 13 Continues on heparin/DAPT Ionized mg .24 NSTEMI 2. Acute on chronic heart failure Keep NPO as LHC may be considered Supplement mg before diuresing [facility] 10-13-2023 Plan of care note Problem: Pain Goal: Patient goal is pain score less than 4, able to rest, and participant in treatment plan as appropriate Description: INTERVENTIONS: 1. Encourage patient or legal medical detail representative to report early pain and ask [...] per policy 9. Teach patient or legal medical detail representative interventions for comforting Outcome: Progressing Note: [...] at the bedside 7. Instruct patient/ patient medical detail representative about use of safety devices 8. Include patient/ patient medical detail representative in decisions related to safety Outcome: [...] hygiene technique 7. Identify and instruct patient/patient medical detail representative in use of appropriate isolation precautions for identified infection/symptoms 8. Provide and discuss with patient/patient medical detail representative on educational MDRO sheet 9. Encourage and monitor nutritional status daily and consult cable strander if indicated 10. Implement neutropenic guidelines as needed 11. Review exposure to history of communicable disease and recent travel history on admission 12. Encourage annual influenza vaccine 13. Encourage pneumonia vaccine Outcome: Progressing Note: Evaluation of progress towards goal: Pt afebrile and no outward signs of infection during shift. Problem: Knowledge Deficit Goal: Patient/patient medical detail representative demonstrates understanding of disease process, treatment [...] develop effective communication strategies 4. Include patient/patient medical detail representative in decisions related to communication Outcome: [...] Collaborate with ancillary departments 14. Include patient/patient medical detail representative in decisions related to anxiety Outcome: [...] to assist with coping 8. Involve patient's medical detail representative in care Outcome: Progressing Note: Evaluation [...] supplement as ordered 13. Collaborate with clinical cable strander 14. Include patient/ patient's medical detail representative in decisions related to nutrition Outcome: [...] be free from fall Description: Interventions: 1. [place] to environment 2. Hourly rounds addressing the [...] non-skid footwear 11. Teach patient and patient medical detail representative to maintain environment for safety and [...] (cane, walker) within reach 19. Request patient medical detail representative bring adaptive equipment/mobility aids from home or obtain and provide as needed 20. Consult pharmacy regarding effects of med's affecting mobility, cognition, and alternatives 21. Obtain physician order for PT if risk factors associated with mobility are present 22. Obtain physician order for OT as appropriate 23. Utilize diversional activities 24. Educate patient and patient medical detail representative how to maintain a safe environment during visitation times (notify nurse prior to leaving bedside) 25. Consider appropriateness of medical or non-biomedical engineering technician 26. Set up voiding schedule as appropriate (every 2 hours) Outcome: Progressing Note: Evaluation of progress towards goal: No signs of falls during shift. [facility] 10-12-2023 History and physical note Images from the original note were not included. [facility] [address] [place] [address] HISTORY & PHYSICAL / CONSULT NOTE Ashvin [...] found to be in CHF with proBNP 95134, HS trop 32273, and K 2.1 which was repleted but [...] Past Medical History: Diagnosis Date Angina pectoris ([facility]) Atherosclerosis of coronary artery bypass graft Atherosclerotic heart disease Coronary angioplasty status Coronary artery disease CVA (cerebral vascular accident) ([facility]) Dyspnea Hyperlipidemia Hypertension Hypotension Other chest pain Stroke ([facility]) Previous Surgical History: Past Surgical History: Procedure Laterality Date CARDIAC CATHETERIZATION Cardiac catheterization N/A 02/15/2023 Performed by Star Espinosa MD at [facility] CARD[facility]AC CATH [facility] Cardiac catheterization - LV cors w/graft check N/A 10/25/2020 Performed by Alexi Freeman MD at [facility] CARDI[facility] CATH [facility] Coronary angiogram and graft/chilkat N/A 02/15/2023 Performed by Star Espinosa MD at [facility] CARDIAC CATH [facility] Coronary angiogram and left ventricular gram/pressure + graft/chilkat N/A 10/25/2020 Performed by Alexi Freeman MD at [facility] CARDIAC CATH [facility]S Coronary angiogram and left ventricular gram/pressure + graft/chilkat N/A 06/18/2016 Performed by Alexi Freeman MD at [facility] CARDIAC CATH [facility]S CORONARY ANGIOPLASTY 12/08/2020 orbital atherectomy and 2 HARRY to prox and distal Circ, at [facility] per Dr. Madhav Ugalde CORONARY ARTERY BYPASS GRAFT 09/08/2014 HYSTERECTOMY INSERTION LOOP RECORDER 05/24/2016 Percutaneous coronary angioplasty left circumflex N/A 02/15/2023 Performed by Star Espinosa MD at [facility] CARDIAC CATH [facility] Stent drug-eluting left circumflex N/A 02/15/2023 Performed by Star Espinosa MD at [facility] CARDIAC CATH [facility] Allergies: Allergies Allergen [...] John APRN-SUNIL [START ON 10/13/2023] heparin infusion 92585 units/500 mL in 0.45% NaCl (50 units/mL premix) 300-3,500 Units/hr intravenous Continuous Parul John APRN-SUNIL magnesium sulfate IVPB 2000 mg/50 mL in iso-osmotic water (40 mg/mL premix) 2,000 mg intravenous PRN Parul R Jeb, HEAD SCREEN WORKER-SECTION HAND Or magnesium sulfate IVPB 4000 mg/100 mL in iso-osmotic water (40 mg/mL premix) 4,000 mg intravenous PRN Parul R Jeb, HEAD SCREEN WORKER-SECTION HAND potassium chloride (K-TAB,KLOR-CON) CR tablet 20-50 mEq 20-50 mEq oral PRN Parul R Jeb, HEAD SCREEN WORKER-SECTION HAND Or potassium chloride (KAYCIEL) 20 mEq/15 mL solution 20-50 mEq 20-50 mEq oral PRN Parul R Jeb, HEAD SCREEN WORKER-SECTION HAND potassium chloride IVPB 10 mEq/50 mL in water (0.2 mEq/mL premix) 10 mEq intravenous PRN Parul R Jeb, HEAD SCREEN WORKER-SECTION HAND Or potassium chloride IVPB 10 mEq/100 mL in water (0.1 mEq/mL premix) 10 mEq intravenous PRN Parul R Jeb, HEAD SCREEN WORKER-SECTION HAND sodium phosphate 20 mmol in sodium chloride 0.9 % 250 mL IVPB 20 mmol intravenous PRN Parul R Jeb, HEAD SCREEN WORKER-SECTION HAND Or sodium phosphate 20 mmol in sodium chloride 0.9 % 100 mL IVPB 20 mmol intravenous PRN Parul R Jeb, HEAD SCREEN WORKER-SECTION HAND Or sod phos di, mono-K phos mono (K-PHOS NEUTRAL) 250 mg tablet 2 tablet 2 tablet oral PRN Parul R Jeb, HEAD SCREEN WORKER-SECTION HAND sodium chloride 0.9 % infusion 10 mL/hr intravenous Continuous PRN Parul R Jeb, HEAD SCREEN WORKER-SECTION HAND sodium chloride 0.9 % infusion 10 mL/hr intravenous Continuous PRN Parul R Jeb, HEAD SCREEN WORKER-SECTION HAND sodium chloride 0.9 % infusion 10 mL/hr intravenous Continuous PRN Parul R Jeb, HEAD SCREEN WORKER-SECTION HAND Home Meds: Prior to Admission medications Medication [...] be continued indefinitely given significant disease in chilkat coronary arteries. Optimize medical therapy for coronary [...] be continued indefinitely given significant disease in chilkat coronary arteries. Optimize medical therapy for coronary [...] Acute on chronic HFrEF Elevated HS troponin 58108 ASCVD h/o CABG and s/p PCI Cx [...] 3,000 mg intravenous PRN Parul R Jeb, HEAD SCREEN WORKER-SECTION HAND clopidogreL (PLAVIX) tablet 75 mg 75 mg oral Daily Parul John, HEAD SCREEN WORKER-SECTION HAND dextrose (GLUTOSE) 40 % gel 15 g 15 g oral PRN Parul Hassann, HEAD SCREEN WORKER-SECTION HAND dextrose 5 % (D5W) infusion 100 mL/hr intravenous Continuous PRN Parul Hassann, HEAD SCREEN WORKER-SECTION HAND dextrose 50 % in water (D50W) 50% solution 25 mL 25 mL intravenous PRN Parul John, HEAD SCREEN WORKER-SECTION HAND glucagon HCL injection 1 mg 1 mg intramuscular PRN Parul Hassann, HEAD SCREEN WORKER-SECTION HAND heparin (porcine) injection 2,000 Units 2,000 Units intravenous PRN Parul Holder Jeb, HEAD SCREEN WORKER-SECTION HAND heparin infusion 79065 units/500 mL in 0.45% NaCl (50 units/mL premix) 300-3,500 Units/hr intravenous Continuous Parul Hassann, HEAD SCREEN WORKER-SECTION HAND 16 mL/hr at 10/13/23 0013 800 Units/hr at 10/13/23 0013 magnesium sulfate IVPB 2000 mg/50 mL in iso-osmotic water (40 mg/mL premix) 2,000 mg intravenous PRN Parul Holder Jeb, HEAD SCREEN WORKER-SECTION HAND Or magnesium sulfate IVPB 4000 mg/100 mL in iso-osmotic water (40 mg/mL premix) 4,000 mg intravenous PRN Parul John, HEAD SCREEN WORKER-SECTION HAND midodrine (PROAMATINE) tablet 5 mg 5 mg oral Q8H PRN Parul Hassann, HEAD SCREEN WORKER-SECTION HAND potassium chloride (K-TAB,KLOR-CON) CR tablet 20-50 mEq 20-50 mEq oral PRN Parul Hassann, HEAD SCREEN WORKER-SECTION HAND Or potassium chloride (KAYCIEL) 20 mEq/15 mL solution 20-50 mEq 20-50 mEq oral PRN Parul Holder Jeb, HEAD SCREEN WORKER-SECTION HAND potassium chloride IVPB 10 mEq/50 mL in water (0.2 mEq/mL premix) 10 mEq intravenous PRN Parul R Jeb, HEAD SCREEN WORKER-SECTION HAND Or potassium chloride IVPB 10 mEq/100 mL in water (0.1 mEq/mL premix) 10 mEq intravenous PRN Parul Hassann, HEAD SCREEN WORKER-SECTION HAND ranolazine (RANEXA) 12 hr tablet 1,000 mg 1,000 mg oral BID Parul R Jeb, HEAD SCREEN WORKER-SECTION HAND rosuvastatin (CRESTOR) tablet 20 mg 20 mg oral Daily Parul R Jeb, HEAD SCREEN WORKER-SECTION HAND sodium phosphate 20 mmol in sodium chloride 0.9 % 250 mL IVPB 20 mmol intravenous PRN Parul R Jeb, HEAD SCREEN WORKER-SECTION HAND Or sodium phosphate 20 mmol in sodium chloride 0.9 % 100 mL IVPB 20 mmol intravenous PRN Parul R Jeb, HEAD SCREEN WORKER-SECTION HAND Or sod phos di, mono-K phos mono (K-PHOS NEUTRAL) 250 mg tablet 2 tablet 2 tablet oral PRN Parul R Jeb, HEAD SCREEN WORKER-SECTION HAND sodium chloride 0.9 % infusion 10 mL/hr intravenous Continuous PRN Parul R Jeb, HEAD SCREEN WORKER-SECTION HAND sodium chloride 0.9 % infusion 10 mL/hr intravenous Continuous PRN Parul R Jeb, HEAD SCREEN WORKER-SECTION HAND sodium chloride 0.9 % infusion 10 mL/hr intravenous Continuous PRN Parul R Jeb, HEAD SCREEN WORKER-SECTION HAND Laboratory CBC: BMP: Troponin I Physical Exam [...] This note was completed using a voice marketing researcher system. Every effort was made to ensure accuracy. However, inadvertent computerized marketing researcher errors may be present. [facility] Work Phone: 10-12-2023 History of Present illness Narrative Images from the original note were not included. [facility] Significant Event Note I am on-call covering for my group today. I am at [facility]. This patient presented to the ER at [facility]. I was paged, called back promptly, spoke to ER provider, reviewed EMR, discussed case, provided recommendations as detailed below. Subjective: 67 year old patient presented to the ER at [facility] with generalized weakness and malaise and [...] of 35-40% Atherosclerotic heart disease of the chilkat coronary arteries with stable angina pectoris History of CABG and subsequent HARRY Profound hypokalemia 2.1 in the ER at [facility] receiving replacements COVID test was negative at [facility] Given profound hypokalemia and risk for spontaneous malignant arrhythmia recommend admission to the ICU or CCU Access transfer team is working on the transfer arrangements and logistics as well as bed availability here at [facility] Recommend to the ER that patient needs to receive ICU dosing oral and IV potassium to replenish her total body potassium depletion She is on torsemide at home and she will need to be on a potassium supplement She will receive anti heart failure therapies while here in [facility] as well as medical therapy for CAD and cardiomyopathy I discussed with ER provider and access transfer team as well as updated the night team covering here at [facility] and the arrangements have been made for patient to be transferred pending the logistics and bed availability Please contact our cardiology service if any changes in patient's status overnight Thank you Jonathan Pizarro DO, FACC, FACOI This note was completed using a voice marketing researcher system. Every effort was made to ensure accuracy. However, inadvertent computerized marketing researcher errors may be present. documented in this encounter [facility] 08-22-2023 Telephone encounter Note Patient left message [...] not need a different prescription sent in. [facility] 08-22-2023 Miscellaneous Notes Patient left message on [...] prescription sent in. documented in this encounter [facility] 08-21-2023 History of Present illness Narrative Reason [...] Bilateral FRANCIS/PVR study performed on 05-29-2023 at [facility] showed: FRANCIS is falsely elevated suggesting medial [...] decisions I made. documented in this encounter [facility] 08-04-2023 Evaluation note Encounter Date Diagnosis Assessment Notes Jul, PAD (peripheral artery disease) (ICD-10 - I73.9) We reviewed her noninvasive arterial studies obtained at outside facility and [facility] in [place] which indicate mild to moderate arterial disease [...] - I96) Jul, Non-smoker (ICD-10 - Z78.9) [facility] Other 12-13-2023 History of Present illness Narrative* Kimberly Codyfin - 06/25/2023 10:40 AM EST Ortho Nurse - Established Patient Intake Room#: 1 --- FIRER ELECTRIC LOCOMOTIVE for Left knee/leg pain. Hip surgery was [...] 06/25/2023 11:28 AM Patient: Ashvin Rene MR#: [id number] : 1955 Age: 67 y.o. Referring Physician: [...] capsule by mouth daily. Ergocalciferol 1.25 MG (58731 UT) capsule Take 1 capsule by mouth [...] 06/25/2023 11:28 AM Patient: Ashvin Rene MR#: [id number] : 1955 Age: 67 y.o. Referring Physician: [...] [x]cane, []bracing Are you followed by a bridge engineer? [x] [] Name: Dr. Ryan Gordon Are [...] capsule by mouth daily. Ergocalciferol 1.25 MG (94525 UT) capsule Take 1 capsule by mouth [...] daily., Disp: , Rfl: Ergocalciferol 1.25 MG (10060 UT) capsule, Take 1 capsule by mouth [...] Rfl: No Known Allergies documented in this [facility]11-07-2022 Evaluation note* Encounter Date Diagnosis Assessment Notes [...] Other Skin wound mate roque was printed [employer] Other 02-02-2022 Note [id number]-01-2022 NoteEducation Materials Obstetrics and Gynecology Edema Edema [...] fluid you drink (fluid restriction). ? Take nfzy-het-qywwvij and prescription medicines only as told by [...] provider. Document Revised: 07/03/2018 Document Reviewed: 07/18/2017 [employer] Patient Education ? 2019 [employer] [id number] Note [facility] Clinical Discharge Summary PERSON INFORMATION Name ASHVIN RENE Age 65 Years 1955 Sex FEMALE Language Yi PCP TUSHAR SOLANO JR. Marital Status Med Service Med/Surg Acct# Arrival 08/06/2021 17:10:50 Visit Reason ANEMIA, ELEVATED TROPONIN Acuity LOS 007 15:53 Address: [address] [place] [address] Comment: PROVIDER INFORMATION VITALS INFORMATION Vital Sign [...] Medication List: New Medications [facility], [address] [place] [address] [phone], [phone] ferrous sulfate (ferrous sulfate 325 mg (65 mg elemental iron) oral tablet) 1 tab(s) Oral 2 times aday for 30 Days. Refills: 1. torsemide (torsemide 20 mg oral tablet) 1 tab(s) Oral every other day for 30 Days. [facility]. Refills: 1. Medications That Were Updated - Follow Below Instructions Other Medications Updated: fludrocortisone (fludrocortisone 0.1 mg oral tablet) 0.5 tab(s) Oral every day. TAKE IN MORNING MEAL, HOLD IF STANDING BP [id number]. Medications to Continue That Have Not Changed [...] mg oral tablet) potassium chloride (Potassium Chloride (Xxi-Lupn-Rpg 10) 10 mEq oral tablet, extended release) [...] range between ( 1.3 and 2.9 ) Costilla Abs#: 0.4 x103/mcL -- Normal range between ( 0.0 and 0.8 ) Auto Baso %: 1.0 % -- Normal range between ( 0.2 and 2.0 ) Auto Costilla %: 7 % -- Normal range between [...] ( 101 and 111 (more content not included)...[facility] [id number] NoteDATE OF PROCEDURE: 08/10/2021 SURGEON: Noe Reed MD ANESTHESIA: Rony Ordonez MD ([facility]) PREOPERATIVE DIAGNOSIS: GI-bleed. [...] well. She will be returned to the [address] [place] [address]. We will await the pathology results. Noe Reed M.D. JOB #: [id number] nery CC: Tushar Solano MD [Electronically Signed on: 08/22/2021 08:54 EST] Noe Reed MD [Verified on: 08/22/2021 08:54 EST] Noe Reed MD [Transcribed on: 08/10/2021 12:12 EST] [facility]09-30-2021 Evaluation note* Encounter Date Diagnosis Assessment Notes Treatment Notes Treatment Clinical Notes Mar, Nausea & vomiting (ICD-10 - R11.2) Nausea and vomiting: adult material was printed Mar, Epigastric pain (ICD-10 - R10.13) [facility] [employer] Other 05-28-2021 NoteHNO ID: [id number] Author: Jaimee Pierce RN Service: Care Management [...] 08, 2020 TIME: 10:58 AM PAGER/CONTACT #: [phone] [facility]05-28-2021 NoteHNO ID: [id number] Author: Jaimee Pierce RN Service: Care Management [...] 08, 2020 TIME: 9:57 AM PAGER/CONTACT #: [phone] Grady Memorial Hospital05-27-2021 NoteHNO ID: [id number] Author: Nay Joseph MD Service: ? Author [...] Could not cross stenoses with Finecross or Locaid flex 135 mm microcatheters. 7Fr Telescope guide [...] No further targets for coronary revascularization. 2. [facility] DAPT STAFF PHYSICIAN: Dirk Joseph MD DATE OF SERVICE: 12/07/2020 TIME OF SERVICE: 6:19 PM (Procedure performed with Dr. Milli Foster and Dr. Erika Kohler)[facility]05-27-2021 NoteProcedure (CATHMN) ASHVIN RENE ([id number]) 1955 F Date Time Provider Department 12/07/20 NAY JOSEPH CATHPA During your visit today, we recorded the [...] No further targets for coronary revascularization. 2. salvage determiner DAPT STAFF PHYSICIAN: Dirk Joseph MD DATE OF SERVICE: 12/07/2020 TIME OF SERVICE: 6:19 PM (Procedure performed with Dr. Milli Foster and Dr. 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 [facility]05-27-2021 NoteHNO ID: [id number] Author: Milli Foster MD Service: Cardiovascular Medicine [...] Milli Foster MD Fellow, Interventional Cardiology Pager: [phone] 12/08/2020 11:34 [facility]05-14-2021 NoteHNO ID: [id number] Author: Nay Joseph MD Service: ? Author Type: Physician Type: Progress Notes Filed: 11/29/2020 7:54 AM Note Text: [facility] [place] [facility] Department of Cardiovascular Medicine SECTION OF INTERVENTIONAL CARDIOLOGY OUTPATIENT VISIT DATE November 23, 2020 OUTPATIENT VISIT TYPE NEW PRIMARY CARE PHYSICIAN: Tushar Solano Jr, DO (Dr) [id number] [place] [address] [place] [address] REFERRING PHYSICIAN: Waqas Mabry MD [facility] [place] Dr Kingston [address] [facility] [address] CHIEF COMPLAINT: No chief complaint on file. [...] resolved after CABG) 2015 CVA and (?) [place] 05/24/16 Echo ? Normal left ventricular end-diastolic [...] area of anterior/anterolateral (more content not included)... [facility]04-29-2021 Miscellaneous Notes* Telephone Encounter - Pilar GlenysAshvin - 11/09/2020 10:10 AM EDT Patient: Ashvin Rene Date of : 1955 Patient phone number: [phone] Referring Provider for the encounter: Dr Waqas Mabry Requesting Provider: Cardiology Reason for requesting visit (RFV/signs and symptoms/diagnosis): 2nd Opinion - Severe CAD Person calling: caregiver: ERIC Return call to: self Medical Records/Insurance Card scanned into [employer]: Yes Comments: N/A documented in [facility] [place] noteNo InformationNortSelect Specialty [facility] [employer] Other Evaluation noteNo assessment information available [facility] Work Phone: Evaluation note* Diagnosis Left knee pain, unspecified chronicity- Primary documented in this encounter [place] [facility]* Diagnosis 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)- Primary Gangrene (CMS/HCC) Gangrene Pain in toe of right foot Pain in soft tissues of limb Arteriosclerosis of arteries of extremities (CMS/HCC) [facility] Diagnosis Stenosis of left carotid artery Occlusion and stenosis of carotid artery without mention of cerebral infarction Stenosis of left carotid artery- Primary Occlusion and stenosis of carotid artery without mention of cerebral infarction [facility] Diagnosis Decompensated heart failure (CMS-HCC)- Primary NSTEMI (non-ST elevated myocardial infarction) (CMS-HCC) Acute myocardial infarction, subendocardial infarction, episode of care unspecified Decompensated heart failure (CMS-HCC) NSTEMI (non-ST elevated myocardial infarction) (CMS-HCC) Acute myocardial infarction, subendocardial infarction, episode of care unspecified NSTEMI (non-ST elevated myocardial infarction) (CMS-HCC) Acute myocardial infarction, subendocardial infarction, episode of care unspecified [facility] Narrative - Reported* Type Description Date Medical History Cholesterol Medical History heart disease Medical History hypertension Surgical History left hip Surgical History stomach Surgical History heart stent Surgical History bypass Surgical History gastric bypass Hospitalization History see above [place] [employer] Other InstructionsNot on filedocumented in this encounter [facility] SystemInstructionsNot on filedocumented in this encounter [facility] SystemReason for referral (narrative)* Consultation (Routine) - Pending Review Specialty Diagnoses / Procedures Referred By Teofilo t Referred To Contact Cardiology Diagnoses NSTEMI (non-ST elevated myocardial infarction) ([facility]) Decompensated heart failure ([facility]) Kallie Roman MD [address], [address] [place] [id number] [facility] [address] [place] [address] Referral ID Status Reason Start Date Expiration Date Visits Requested Visits Authorized [id number] Pending Review Specialty Services Required 10/15/2023 10/14/2024 1 1 * Misc (Routine) - Pending Review Specialty Diagnoses / Procedures Referred By Contac t Referred To Contact Procedures Discharge Follow-Up Kallie Roman MD [address], [address] [place] [phone] Referral ID Status Reason Start Date Expiration Date V isits Requested Visits Authorized [id number] Pending Review 10/15/2023 10/14/2024 1 1 * Misc (Routine) - Pending Review Specialty Diagnoses / Procedures Referred By Contac t Referred To Contact Diagnoses NSTEMI (non-ST elevated myocardial infarction) ([facility]) Decompensated heart failure ([facility]) Procedures Follow-up with primary care provider Kallie Roman MD [address], [address] [place] [id number] Referral ID Status Reason Start Date Expiration Date V isits Requested Visits Authorized [id number] Pending Review 10/15/2023 10/14/2024 1 1 * Misc (Routine) - Pending Review Specialty Diagnoses / Procedures Referred By Contac t Referred To Contact Procedures No dressing needed Kallei Roman MD [address], [address] [place] [phone] Referral ID Status Reason Start Date Expiration Date V isits Requested Visits Authorized [id number] Pending Review 10/15/2023 10/14/2024 1 1 * Misc (Routine) - Pending Review Specialty Diagnoses / Procedures Referred By Contac t Referred To Contact Procedures Adult Kallie Ashley MD [address] [address] Referral ID Status Reason Start Date Expiration Date V isits Requested Visits Authorized [id number] Pending Review 10/15/2023 10/14/2024 1 1 [facility] Advance Directives No Advanced Directives Records Found [...] worsening of your eyesight. Please call your animal care specialist during normal business hours. If after business hours call Dr. Deng Humphreys at his cell [phone] or his office [phone]. Summary Purpose Reason for Referral Specialty Diagnoses / Procedures Referred By Teofilo serrato Referred To Contact Diagnoses Stenosis of left carotid artery Procedures Vas carotid duplex bilateral Mariama Veras MD [address] [facility], [address] [place] [address] [facility] [address] [place] [address] Phone: [phone] Referral ID Status Reason Start Date Expiration Date Visits Re quested Visits Authorized [id number] Closed 10/06/2023 10/05/2024 1 1 Specialty Diagnoses / Procedures Referred By Teofilo serrato Referred To Contact Diagnoses Left knee pain, unspecified chronicity Norman Braga MD [address] [place] [address] Referral ID Status Reason Start Date Expiration Date V isits Requested Visits Authorized [id number] New Request 06/25/2023 07/19/2024 1 1 Scheduling Instructions . Specialty Diagnoses / Procedures Referred By Contac t Referred To Contact Diagnoses Left knee pain, unspecified chronicity Procedures XR KNEE LEFT 4+ VIEWS Norman Braga MD [address] [place] [address] Referral ID Status Reason Start Date Expiration Date V isits Requested Visits Authorized [id number] Pending Review 06/18/2023 07/12/2024 1 1 Specialty Diagnoses / Procedures Referred By Contac t Referred To Contact Diagnoses Left knee pain, unspecified chronicity Procedures XR BONE LENGTH STUDY Norman Braga MD [address] [place] [phone] Referral ID Status Reason Start Date Expiration Date V isits Requested Visits Authorized [id number] Pending Review 06/18/2023 07/12/2024 1 1 Additional Source Comments Source Comments (unrecognize d section and content) In the event this informatio n is protected by the Federal Confidentiality of Alcohol and Drug Abuse Patient Records regulations: The Federal rules restrict any use of the information to criminally investigate or prosecute any alcohol or drug abuse patient.[facility] Reason for Visit (unrecogniz ed section and content) Reason Comments External Referrals/resources Specialty Diagnoses / Procedures Referred By Contac t Referred To Contact Diagnoses Left knee pain, unspecified chronicity Procedures XR BONE LENGTH STUDY Norman Braga MD [address] [place] [phone] Referral ID Status Reason Start Date Expiration Date V isits Requested Visits Authorized [id number] Pending Review 06/18/2023 07/12/2024 1 1 Reason Comments Pain Reason Onset Date Comments [place] 08/22/2023 Specialty Diagnoses / Procedures Referred By Contac t Referred To Contact Diagnoses Decompensated heart failure ([facility]) CHF (congestive heart failure) ([facility]) Decompensated Heart Failure, Severe Hypokalemia Jonathan Pizarro DO [address] [place] [address] Referral ID Status Reason Start Date Expiration Date Visits Re quested Visits Authorized [id number] 1 1 INFORMATION SOURCE (unrecogn ized section and content) DATE CREATED AUTHOR 03/12/2021 [facility] DATE CREATED AUTHOR AUTHOR'S ORGANIZ ATION 08/13/2021 [facility] DATE CREATED AUTHOR AUTHOR'S ORGANIZ ATION 09/26/2021 [facility] DATE CREATED AUTHOR AUTHOR'S ORGANIZ ATION 10/20/2022 [facility] DATE CREATED AUTHOR AUTHOR'S ORGANIZ ATION 07/04/2023 [facility] DATE CREATED AUTHOR AUTHOR'S ORGANIZ ATION 08/20/2023 [facility] DATE CREATED AUTHOR AUTHOR'S ORGANIZ ATION 10/16/2023 [facility] DATE CREATED AUTHOR AUTHOR'S ORGANIZ ATION 10/18/2023 [facility] DATE CREATED AUTHOR AUTHOR'S ORGANIZ ATION 10/25/2023 [facility] DATE CREATED AUTHOR AUTHOR'S ORGANIZ ATION 02/19/2024 [facility] EPIC Care Teams (unrecognized sec [...] Provider Active ZAC Renae Attending Provider Active Pharmacy Resource Tech Relationship Specialty Start Date End Date Tushar Solano Jr., DO [address] [place] [id number] PCP - General Internal Medicine 05/28/23 Pharmacy Resource Tech Relationship Specialty Start Date End Date Tushar Solano Jr., DO [address] [place] [phone] PCP - General Internal Medicine 05/28/23 Pharmacy Resource Tech Relationship Specialty Start Date End Date Tushar Solano MD [address] [place] [address] PCP - General Internal Medicine 04/08/23 Pharmacy Resource Tech Relationship Specialty Start Date End Date Tushar Solano MD [address] [place] [phone] PCP - General Internal Medicine 04/08/23 Pharmacy Resource Tech Relationship Specialty Start Date End Date Tushar Solano MD [address] [place] [address] [phone] PCP - General Internal Medicine 04/08/23 Pharmacy Resource Tech Relationship Specialty Start Date End Date Tushar Solano Jr., DO [address] [place] [address] PCP - General Internal Medicine 05/24/16 Pharmacy Resource Tech Relationship Specialty Start Date End Date Tushar Solano Jr., [address] [place] [phone] PCP - General Internal Medicine 05/24/16 Pharmacy Resource Tech Relationship Specialty Start Date End Date Tushar Solano Jr., DO [address] [place] [address] [phone] PCP - General Internal Medicine 05/24/16 Goals (unrecognized section and content) Goals may be documented in a n alternate section Scheduled Active and Recently Administ ered Medications (unrecognized section and content) Medication Order 10/13/2023 10/14/2023 10/15/2023 aspirin chewable tablet 81 mg 81 mg, oral, Daily, First dose on Fri10/13/23 at 0900 0830 (Given - Provider: Gely Chua RN) 0729 ([facility] Hold - Provider: Automatic Transfer Provider - Reason: Patient not available)0900 (Dose Auto Held - Provider: Automatic Transfer Provider)0917 ([facility] Unhold - Provider: Automatic Transfer Provider) [...] (Given - Provider: Gely Chua RN) 0729 ([facility] Hold - Provider: Automatic Transfer Provider - Reason: Patient not available)0900 (Dose Auto Held - Provider: Automatic Transfer Provider)0917 ([facility] Unhold - Provider: Automatic Transfer Provider)1021 (Given - Provider: Gely Chua RN) 0958 (Given - Provider: David Florez RN) collagenase (SANTYL) ointment 1 Application 1 Application, topical, Daily, First dose on Fri10/13/23 at 1500, Apply to thigh wound . 2034 (Given - Provider: Jolene Almaguer RN) 0729 ([facility] Hold - Provider: Automatic Transfer Provider - Reason: Patient not available)0900 (Dose Auto Held - Provider: Automatic Transfer Provider)0917 ([facility] Unhold - Provider: Automatic Transfer Provider) [...] 0347 (Given - Provider: Jolene Almaguer RN)0729 ([facility] Hold - Provider: Automatic Transfer Provider - Reason: Patient not available)0917 ([facility] Unhold - Provider: Automatic Transfer Provider) [...] Entry - Provider: Gely Chua RN) 0729 ([facility] Hold - Provider: Automatic Transfer Provider - Reason: Patient not available)0917 ([facility] Unhold - Provider: Automatic Transfer Provider) metoprolol succinate XL (TOPROL XL) 24 hr tablet 25 mg (CANCELED) 25 mg, oral, Daily, First dose on Fri10/13/23 at 1630, Look-alike/sound-alike medication - verify indication for use. Do not crush or chew. 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 728 ([facility] Hold - Provider: Automatic Transfer Provider - Reason: Patient not available)09 ([facility] Unhold - Provider: Automatic Transfer Provider) dextrose 5 % (D5W) infusion 100 mL/hr, intravenous, Continuous PRN, blood glucose less than 70 mg/dL, Starting on 10/12/23 at 2321, Use immediately following dextrose 50% or glucagon treatment for patients who are unconscious or NPO. Contact prescriber for additional orders. If blood glucose is not greater than 70 mg/dL after initial treatment, repeat treatment. 728 ([facility] Hold - Provider: Automatic Transfer Provider - Reason: Patient not available)916 ([facility] Unhold - Provider: Automatic Transfer Provider) [...] treatment. VESICANT (RED) Warning: HYPERTONIC solution. 728 ([facility] Hold - Provider: Automatic Transfer Provider - Reason: Patient not available)916 ([facility] Unhold - Provider: Automatic Transfer Provider) diphenhydrAMINE (BENADRYL) injection 50 mg(Linked Group 2) 50 mg, intravenous, As needed, for previously documented contrast allergy, Starting on Fri10/13/23 at 1118, Scheduling/ADT, Administer one hour prior to procedure Look-alike/sound-alike medication - verify indication for use. 728 ([facility] Hold - Provider: Automatic Transfer Provider - Reason: Patient not available)09 ([facility] Unhold - Provider: Automatic Transfer Provider) [...] Sae Santiago RN)0805 (Stop Bag - Provider: aDvid Florez RN) magnesium sulfate IVPB 4000 mg/100 [...] (See Alternative - Provider: Gely Chua, RN)0729 ([facility] Hold - Provider: Automatic Transfer Provider - Reason: Patient not available)0917 ([facility] Unhold - Provider: Automatic Transfer Provider) [...] medication - verify indication for use. 0729 ([facility] Hold - Provider: Automatic Transfer Provider - Reason: Patient not available)0917 ([facility] Unhold - Provider: Automatic Transfer Provider) [...] over a minimum of 1 hour. 0729 ([facility] Hold - Provider: Automatic Transfer Provider - Reason: Patient not available)09 ([facility] Unhold - Provider: Automatic Transfer Provider) [...] 1.2 = 40 mEq VESICANT (YELLOW) 07 ([facility] Hold - Provider: Automatic Transfer Provider - Reason: Patient not available)09 ([facility] Unhold - Provider: Automatic Transfer Provider) [...] medication - verify indication for use. 0729 ([facility] Hold - Provider: Automatic Transfer Provider - Reason: Patient not available)09 ([facility] Unhold - Provider: Automatic Transfer Provider) [...] with a full glass of water. 07 ([facility] Hold - Provider: Automatic Transfer Provider - Reason: Patient not available)0917 ([facility] Unhold - Provider: Automatic Transfer Provider) sodium chloride 0.9 % flush 3 mL 3 mL, intravenous, As needed, line care, before and after each intermittent use, Starting on Fri10/14/23 at 0913 sodium chloride 0.9 % infusion 10 mL/hr, intravenous, Continuous PRN, to maintain patency of lines, Starting on 10/12/23 at 2321, Line #1 0729 ([facility] Hold - Provider: Automatic Transfer Provider - Reason: Patient not available)0917 ([facility] Unhold - Provider: Automatic Transfer Provider) sodium chloride 0.9 % infusion 10 mL/hr, intravenous, Continuous PRN, to maintain patency of lines, Starting on 10/12/23 at 2321, Line #2 0729 ([facility] Hold - Provider: Automatic Transfer Provider - Reason: Patient not available)0917 ([facility] Unhold - Provider: Automatic Transfer Provider) sodium chloride 0.9 % infusion 10 mL/hr, intravenous, Continuous PRN, to maintain patency of lines, Starting on 10/12/23 at 2321, Line #3 0729 ([facility] Hold - Provider: Automatic Transfer Provider - Reason: Patient not available)0917 ([facility] Unhold - Provider: Automatic Transfer Provider) [...] complete. Infuse using central line access. 07 ([facility] Hold - Provider: Automatic Transfer Provider - Reason: Patient not available)0917 ([facility] Unhold - Provider: Automatic Transfer Provider) [...] BE BASED ON THE PRIMARY CLINICAL RECORDS. [employer] [facility]. provides no warranty or guarantee of the accuracy or completeness of information in this document.
[2024-04-02 11:23] LABS: Basophils Percent Auto 0.6 % (0.2-2.0); Eosinophils Absolute Auto 0.1 10^3/uL (0.0-0.7); Eosinophils Percent Auto 2.2 % (0.9-7.0); Hematocrit 35.8 % (36.0-48.0); Hemoglobin 11.3 g/dL (12.0-16.0); Immature Granulocytes Abs Auto 0.02 10^3/uL (0.00-0.03); Immature Granulocytes Pct Auto 0.4 % (0.0-0.5); Lymphocytes Absolute Auto 1.1 10^3/uL (1.2-3.8); Mean Corpuscular HGB Conc 31.6 g/dL (29.9-35.2); Mean Corpuscular Hemoglobin 34.9 pg (26.7-34.0); Mean Corpuscular Volume 110.5 fL (81.0-99.0); Mean Platelet Volume 9.5 fL (9.5-13.5); Monocytes Absolute Auto 0.3 10^3/uL (0.3-0.8); Monocytes Percent Auto 6.8 % (1.7-12.0); Neutrophils Absolute Auto 3.4 10^3/uL (1.4-6.5); Platelet Count 240 10^3/uL (150-450); Red Blood Count 3.24 10^6/uL (4.20-5.40); Red Cell Distribution Width 15.9 % (11.0-15.0)
[2024-04-02 12:06] LABS: Estimated Average Glucose 85 mg/dL; Glycohemoglobin A1C 4.6 % (4.5-6.2)
[2024-04-02 12:22] LABS: D Dimer 1.93 mg/L FEU (<=0.59)
[2024-04-02 13:10] LABS: Alanine Aminotransferase 23 U/L (14-59); Albumin Globulin Ratio 0.9; Albumin Level 2.3 g/dL (3.4-5.0); Alkaline Phosphatase 146 U/L (46-116); Aspartate Amino Transferase 23 U/L (15-37); Bilirubin Direct 0.1 mg/dL (0.0-0.2); Bilirubin Total 0.3 mg/dL (0.2-1.0); Chol HDL Ratio 1.5; Cholesterol 122 mg/dL (<=200); Estimated GFR (African America >60 (>=60); Estimated GFR (Non-African Ame 54 (>=60); Globulin 2.6 g/dL; HDL Cholesterol 79 mg/dL (40-60); Total Protein 4.9 g/dL (6.4-8.2); Triglycerides 89 mg/dL (<=150); VLDL CHOLESTEROL 17.8 mg/dL
== END 2024-04-02 10:47 | disposition home or self-care (01) ==
LOC: LAB 10:47
PROVIDERS: PCP Internal Medicine; Visit Provider Internal Medicine
DX: E78.5 Hyperlipidemia, unspecified (principal); E11.9 Type 2 diabetes mellitus without complications; I82.401 Acute embolism and thrombosis of unspecified deep veins of right lower extremity; Z79.899 Other long term (current) drug therapy
CPT/HCPCS: 36415; 80061; 80076; 82565; 83036; 84520; 85025; 85378

== ENCOUNTER 2024-04-05 09:01 | Outpatient (OUT) | payer MEDICARE, SELFPAY ==
--- NOTE | 2024-04-05 | XR_ITS ---
The [address] [address] Patient Name: ASHVIN RENE MRN: [id number] date: 1955 Sex: F Assigned Patient Location: Current Patient Location: Accession/Order Number: [id number] Exam Date: 04/05/2024 09:04 Report Date: 04/07/2024 06:36 At the request of: LAURIE ARTEAGA Procedure: XR hip RT 2V w/ pelvis PROCEDURE: XR hip RT 2V w/ pelvis HISTORY: RIGHT HIP AND PELVIS PAIN COMPARISON: XR hip right 03/08/2024 FINDINGS: BONES:Bilateral femoral neck repair with evidence of more recent fracture of the right femoral neck and ongoing bone healing. Prior fractures and healing of the left superior and inferior pubic rami. SOFT TISSUES:No visible soft tissue swelling. EFFUSION:None visible. OTHER: Negative. XR/XR hip RT 2V w/ pelvis IMPRESSION: 1. Surgical repair with stable alignment and ongoing bone healing of right femoral neck fracture Electronically authenticated by: LAURIE MEJÍA Date: 04/07/2024 06:36
== END 2024-04-05 09:02 | disposition home or self-care (01) ==
LOC: EC 09:01
PROVIDERS: PCP Internal Medicine; Visit Provider Orthopaedic Surgery
DX: S72.001A Fracture of unspecified part of neck of right femur, initial encounter for closed fracture (principal)
CPT/HCPCS: 73502

== ENCOUNTER 2024-04-27 11:57 | Outpatient (OUT) | payer MEDICARE, SELFPAY ==
--- OUTSIDE RECORDS SUMMARY | 2024-04-27 12:04 | XMS_ITS | CCD ---
Author Organization [facility] Care Team Providers Care Thread Grinder Name Role Phone Tushar Solano Primary Care Provider UnavailHarriet Gipson Attending Provider Tushar Rodriguez Jr. Primary Care Provider Waqas Mabry Unavailable [phone] Antonio Kim Unavailable [phone] Virginia Marti Unavailable JR Tushar Solano Primary Care Provider ZAC Marti Attending Provider URSS, DR DE Primary Care Unavailable VALONE, DR DE Consulting Unavailable VALONE, DR DE Attending Unavailable VALONE, DR DE Admitting Unavailable VALONE, DR DE Primary Care Unavailable VALONE, DR DE Consulting Unavailable VALONE, DR DE Attending Unavailable VALONE, DR DE Admitting Unavailable VALONE, DR DE Primary Care Unavailable VALONE, DR DE Consulting Unavailable VALONE, DR DE Attending Unavailable VALONE, DR DE Admitting Unavailable WENTWORTH, DR YARY Burleson Consulting Unavailable Russ Christopher [...] atorvastatin; Translations: [atorvastatin] Drug Allergy 06-18-20 16 [facility] (12 sources) Cefadroxil; Translations: [cefadroxil] Drug Allergy 06-18-20 16 [facility] (14 sources) Codeine; Translations: [Codeine] Drug Allergy 10-12-19 15 Hives, Hallucinations , [facility] (3 sources) Dipyridamole; Translations: [dipyridamole] Drug Allergy 05-30-20 21 Unknown Reaction [facility] (6 sources) Fenofibrate; Translations: [fenofibrate] Drug Allergy 06-18-20 16 [facility] (12 sources) fluvoxaMINE; Translations: [fluvoxamine] Drug Allergy 06-18-20 16 [facility] (12 sources) nefazodone; Translations: [nefazodone] Drug Allergy 06-18-20 16 [facility] (12 sources) Niacin; Translations: [niacin] Drug Allergy 06-18-20 16 [facility] (6 sources) Simvastatin; Translations: [simvastatin] Drug Allergy 05-30-20 21 [facility] (1 source) Aspirin / Dipyridamole Drug Allergy 07-14-19 13 [facility] (1 source) Cefadroxil Drug Allergy 10-12-19 15 [facility] (1 source) Dextroamphetamine Drug Allergy 10-12-19 15 [facility] (1 source) Fenofibrate Drug Allergy 10-12-19 15 [facility] (1 source) fluvoxaMINE Drug Allergy 10-12-19 15 [facility] (1 source) nefazodone Drug Allergy 10-12-19 15 [facility] (1 source) Niacin Drug Allergy 10-12-19 15 [facility] (1 source) Simvastatin Drug Allergy 10-12-19 15 [facility] (3 sources) Aspirin / Dipyridamole Drug Allergy 04-08-20 23 Other [facility] Work Phone: (3 sources) Fluconazole Allergy to substance 04-08-20 23 Rash [facility] (3 sources) Aspirin / Dipyridamole; Translations: [ASPIRIN-DIPYRIDAMOL E] Drug Allergy 06-18-20 16 [facility] Work Phone: (6 sources) Fenofibrate; Translations: [FENOFIBRATE MICRONIZED] Drug Allergy 06-18-20 16 [facility] (4 sources) Metoprolol; Translations: [METOPROLOL] Drug Allergy 09-09-19 24 Other (See Comments) [facility] Medications Current Medications Medication Drug Class(es) Dates [...] Start: 11-25-2022 take 2 tablets by mo [facility] once daily calcium citrate 250 mg [...] mg/ml ophthalmic solution (3 sources) Plasma Volume General Activities Therapist, Non-Standardized Chemical Allergen Artificial Tear Solution (Soothe [...] by mouth every week Ergocalciferol 1.25 MG (82944 UT) capsule Take 1 capsule by mouth [...] take 1 tablet by mouth at [facility] ferrous sulfate 325 (65 Fe) MG EC [...] Anti-coagulant Start: 10-13-2023 End: 10-14-2023 heparin infusion 33199 units/500 mL in 0.45% NaCl (50 units/mL [...] graft with unstable angina pectoris, unspecified whether ak chin or transplanted heart ([facility]) Take 1 tablet (1,000 mg total) by [...] Coronary arteriosclerosis; Translations: [Atherosclerotic 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 Comment on above: Performed By: #### P INR, 67085-3, 718-7, PLTCT, BMP, 36731-7 #### [facility] ([id number]) [address], [address] [place] [address] Calcium [Mass/Vol] 8.0 mg/dL Low 8.5-10.5 [facility] Comment on above: Performed By: #### P INR, 37873-9, 718-7, PLTCT, BMP, 23266-6 #### [facility] ([id number]) [address], [address] [place] [address] Chloride [Moles/Vol] 97 mmol/L Low 98-[address] [facility] Comment on above: Performed By: #### P INR, 10004-5, 718-7, PLTCT, BMP, 88001-3 #### [facility] ([id number]) [address], [address] [place] [address] CO2 [Moles/Vol] 28 mmol/L Normal 22-[address] [facility] Comment on above: Performed By: #### P INR, 36442-5, 718-7, PLTCT, BMP, 43771-4 #### [facility] ([id number]) [address], [address] [address] Creatinine [Mass/Vol] 0.88 mg/dL Normal 0.40-1.[address] [facility] Comment on above: Result Comment: METH OD TRACEABLE TO IDMS STANDARD Performed By: #### P INR, 97088-7, 718-7, PLTCT, BMP, 75222-6 #### [facility] ([id number]) [address], [address] [address] GFR/1.73 sq M.predicted among non-blacks MDRD (S/P/Bld) [Vol rate/Area] 71 mL/min/{1.73_m2} Normal >[address] [facility] Comment on above: Result Comment: Reported eGFR is based on the CKD-EPI 2020 equation that does not use a race coefficient. Performed By: #### P INR, 77048-1, 718-7, PLTCT, BMP, 60427-0 #### [facility] ([id number]) [address], [address] [address] Glucose [Mass/Vol] 138 mg/dL High 65-99 [facility] Comment on above: Performed By: #### P INR, 81301-8, 718-7, PLTCT, BMP, 55986-6 #### [facility] ([id number]) [address] [address] Potassium [Moles/Vol] 4.8 mmol/L Normal 3.5-5.[address] [facility] Comment on above: Result Comment: SPEC IMEN HEMOLYZED, RESULTS INCREASED MODERATELY HEMOLYZED Performed By: #### P INR, 83189-3, 718-7, PLTCT, BMP, 73694-8 #### [facility] ([id number]) [address], [address] [place] [address] Sodium [Moles/Vol] 140 mmol/L Normal 134-146 [facility] Comment on above: Performed By: #### P INR, 58706-4, 718-7, PLTCT, BMP, 56800-1 #### [facility] ([id number]) [address], [address] [place] [address] Urea nitrogen [Mass/Vol] 20 mg/dL Normal 5-[address] [facility] Comment on above: Performed By: #### P INR, 19657-1, 718-7, PLTCT, BMP, 92369-8 #### [facility] ([id number]) [address], [address] [place] [address] Basic Metabolic Panelon - Anion gap [Moles/Vol] 15 mmol/L 5 - 15 mmol/L [facility] Calcium [Mass/Vol] 8.0 mg/dL Low 8.5 - 10. 5 mg/dL [facility] Chloride [Moles/Vol] 97 mmol/L Low 98 - 109 mmol/L [facility] CO2 [Moles/Vol] 28 mmol/L 22 - 32 mmol/L [facility] Creatinine [Mass/Vol] 0.88 mg/dL 0.40 - 1.00 mg/dL [facility] Comment on above: METHOD TRACEABLE TO IDLA STANDARD eGFR (CKD-EPI)non-race dependent 71 - PINF [facility] Comment on above: Reported eGFR is based on the CKD-EPI 2020 equation that does not use a race coefficient. Glucose [Mass/Vol] 138 mg/dL High 65 - 99 mg/dL [facility] Potassium [Moles/Vol] 4.8 mmol/L 3.5 - 5.0 mmol/L [facility] Comment on above: SPECIMEN HEMOLYZED, RESULTS INCREASED MODERATELY HEMOLYZED Sodium [Moles/Vol] 140 mmol/L 134 - 146 mmol/L [facility] Urea nitrogen [Mass/Vol] 20 mg/dL 5 - 27 mg/dL [facility] CBC AND AUTO DIFFon 10-15-19 ABSOLUTE BASOPHIL 0.0 X10E9/L Normal 0.0-0.2 [facility] Comment on above: Performed By: #### P INR, 17562-3, 718-7, PLTCT, BMP, 70295-9 #### [facility] ([id number]) [address], [address] [place] [address] ABSOLUTE NEUTROPHIL 4.6 X10E9/L Normal 1.5-6.[address] [facility] Comment on above: Performed By: #### P INR, 44380-3, 718-7, PLTCT, BMP, 13691-4 #### [facility] ([id number]) [address], [address] [address] Basophils/100 WBC (Bld) 0.4 % Normal [facility] Comment on above: Performed By: #### P INR, 64825-4, 718-7, PLTCT, BMP, 11429-8 #### [facility] ([id number]) [address], [address] [place] [address] Eosinophils (Bld) [#/Vol] 0.0 10*3/uL Normal 0.0-0.[address] [facility] Comment on above: Performed By: #### P INR, 87361-7, 718-7, PLTCT, BMP, 09713-9 #### [facility] ([id number]) [address], [address] [place] [address] Eosinophils/100 WBC (Bld) 0.3 % Normal [facility] Comment on above: Performed By: #### P INR, 86713-9, 718-7, PLTCT, BMP, 08801-5 #### [facility] ([id number]) [address], [address] [address] Erythrocyte distribution width (RBC) [Ratio] 12.7 % Normal 11.5-15.[address] [facility] Comment on above: Performed By: #### P INR, 92248-7, 718-7, PLTCT, BMP, 63866-8 #### [facility] ([id number]) [address], [address] [place] [address] Hematocrit (Bld) [Volume fraction] 38.1 % Normal 35-[address] [facility] Comment on above: Performed By: #### P INR, 50526-2, 718-7, PLTCT, BMP, 02717-3 #### [facility] ([id number]) [address], [facility] [address] [place] [address] Lymphocytes (Bld) [#/Vol] 2.2 10*3/uL Normal 1.0-3.[address] [facility] Comment on above: Performed By: #### P INR, 82143-2, 718-7, PLTCT, BMP, 10971-5 #### [facility] ([id number]) [address] [address] [place] [address] Lymphocytes/100 WBC (Bld) 30.4 % Normal [facility] Comment on above: Performed By: #### P INR, 59495-9, 8-7, PLTCT, BMP, 11502-1 #### [facility] ([id number]) [address] [address] [place] [address] MCH (RBC) [Entitic mass] 34.3 pg High 27-[address] [facility] Comment on above: Performed By: #### P INR, 42589-6, 718-7, PLTCT, BMP, 49424-0 #### [facility] ([id number]) [address] [address] [place] [address] MCHC (RBC) [Mass/Vol] 33.3 g/dL Normal 32-[address] [facility] Comment on above: Performed By: #### P INR, 85870-4, 718-7, PLTCT, BMP, 88472-6 #### [facility] ([id number]) [address], [facility] [address] [place] [address] MCV (RBC) [Entitic vol] 103 fL High 80-[address] [facility] Comment on above: Performed By: #### P INR, 59037-5, 718-7, PLTCT, BMP, 43281-3 #### [facility] ([id number]) [address], [address] [place] [address] Monocytes (Bld) [#/Vol] 0.4 10*3/uL Normal 0-0.[address] [facility] Comment on above: Performed By: #### P INR, 09120-5, 718-7, PLTCT, BMP, 88096-3 #### [facility] ([id number]) [address], [facility] [address] [place] [address] Monocytes/100 WBC (Bld) 6.0 % Normal [facility] Comment on above: Performed By: #### P INR, 79604-3, 718-7, PLTCT, BMP, 73227-5 #### [facility] ([id number]) [address], [address] [place] [address] Neutrophils/100 WBC (Bld) 62.9 % Normal [facility] Comment on above: Performed By: #### P INR, 70765-2, 718-7, PLTCT, BMP, 34000-1 #### [facility] ([id number]) [address], [address] [place] [address] Platelet mean volume (Bld) [Entitic vol] 8.7 fL Normal 7-[address] [facility] Comment on above: Performed By: #### P INR, 36222-5, 718-7, PLTCT, BMP, 77998-9 #### [facility] ([id number]) [address], [address] [place] [address] Platelets (Bld) [#/Vol] 229 10*3/uL Normal 150-[address] [facility] Comment on above: Performed By: #### P INR, 50684-5, 718-7, PLTCT, BMP, 15100-3 #### [facility] ([id number]) [address], [address] [place] [address] RBC COUNT 3.69 X10E12/L Low 3.80-5.[address] [facility] Comment on above: Performed By: #### P INR, 78492-7, 718-7, PLTCT, BMP, 37828-2 #### [facility] ([id number]) [address], [address] [place] [address] WBC (Bld) [#/Vol] 7.3 10*3/uL Normal 4.0-11.0 [facility] Comment on above: Performed By: #### P INR, 33841-7, 718-7, PLTCT, BMP, 98597-2 #### [facility] ([id number]) [address], [address] [place] [address] CBC auto differentialon 04-0 Basophils (Bld) [#/Vol] 0.0 10*3/uL [facility] Basophils/100 WBC (Bld) 0.4 % [facility] Eosinophils (Bld) [#/Vol] 0.0 10*3/uL [facility] Eosinophils/100 WBC (Bld) 0.3 % [facility] Erythrocyte distribution width (RBC) [Ratio] 12.7 % 11.5 - 15.0 % [facility] Hematocrit (Bld) [Volume fraction] 38.1 % 35 - 47 % [facility] Hemoglobin (Bld) [Mass/Vol] 12.7 g/dL 11.7 - 15.5 g/dL [facility] Interpretation and review of laboratory results Abnormal [facility] Lymphocytes (Bld) [#/Vol] 2.2 10*3/uL [facility] Lymphocytes/100 WBC (Bld) 30.4 % [facility] MCH (RBC) [Entitic mass] 34.3 pg High 27 - 34 pg [facility] MCHC (RBC) [Mass/Vol] 33.3 g/dL 32 - 36 g/dL [facility] MCV (RBC) [Entitic vol] 103 fL High 80 - 100 fL [facility] Monocytes (Bld) [#/Vol] 0.4 10*3/uL [facility] Monocytes/100 WBC (Bld) 6.0 % [facility] Neutrophils (Bld) [#/Vol] 4.6 10*3/uL [facility] Neutrophils/100 WBC (Bld) 62.9 % [facility] Platelet mean volume (Bld) [Entitic vol] 8.7 fL 7 - 12 fL [facility] Platelets (Bld) [#/Vol] 229 10*3/uL [facility] RBC (Bld) [#/Vol] 3.69 10*6/uL Low [facility] WBC corrected for nucl RBC Auto (Bld) [#/Vol] 7.3 [facility] CREATININEon 10-15-2023 Creatinine [Mass/Vol] 0.81 mg/dL Normal 0.40-1.[address] [facility] Comment on above: Result Comment: METH OD TRACEABLE TO IDMS STANDARD Performed By: #### P INR, 66607-8, 718-7, PLTCT, BMP, 02062-4 #### [facility] ([id number]) [address] [facility] [facility] [address] [place] [address] GFR/1.73 sq M.predicted among non-blacks MDRD (S/P/Bld) [Vol rate/Area] 79 mL/min/{1.73_m2} Normal >[address] [facility] Comment on above: Result Comment: Reported eGFR is based on the CKD-EPI 2020 equation that does not use a race coefficient. Performed By: #### P INR, 30129-9, 718-7, PLTCT, BMP, 66336-1 #### [facility] ([id number]) [address] [facility] [place] [address] Creatinine includes GFR, ser umon 10-15-2023 Creatinine [Mass/Vol] 0.81 mg/dL 0.40 - 1.00 mg/dL [facility] Comment on above: METHOD TRACEABLE TO IDLA STANDARD eGFR (CKD-EPI)non-race dependent 79 - PINF [facility] Comment on above: Reported eGFR is based on the CKD-EPI 2020 equation that does not use a race coefficient. HEMOGLOBINon 10-15-2023 Hemoglobin (Bld) [Mass/Vol] 12.7 g/dL Normal 11.7-15.[address] [facility] Comment on above: Performed By: #### P INR, 15474-7, 718-7, PLTCT, BMP, 75741-2 #### [facility] ([id number]) [address] [facility] [place] [address] Hemoglobinon 10-15-2023 Hemoglobin (Bld) [Mass/Vol] 12.7 g/dL 11.7 - 15.5 g/dL [facility] Ionized magnesiumon 10-15-19 Magnesium Ionized ISE (Bld) [Moles/Vol] 0.53 mmol/L 0.45 - 0.74 mmol/L [facility] Comment on above: NEW REFERENCE RANGE MAGNESIUMon 10-15-2023 Magnesium [Mass/Vol] 1.8 mg/dL Normal 1.8-2.[address] [facility] Comment on above: Result Comment: SPEC IMEN HEMOLYZED, RESULTS INCREASED MARKEDLY HEMOLYZED Performed By: #### P INR, 94939-3, 718-7, PLTCT, BMP, 75816-0 #### [facility] ([id number]) [address], [address] [place] [address] Magnesiumon 10-15-2023 Magnesium [Mass/Vol] 1.8 mg/dL 1.8 - 2.6 mg/dL [facility] Comment on above: SPECIMEN HEMOLYZED, RESULTS INCREASED MARKEDLY HEMOLYZED Magnesium Ionized ISE (Bld) [Moles/Vol]on 10-15-2023 Magnesium [Moles/Vol] 0.53 mmol/L Normal 0.45-0.[address] [facility] Comment on above: Result Comment: NEW REFERENCE RANGE Performed By: #### P INR, 70776-3, 718-7, PLTCT, BMP, 30916-6 #### [facility] ([id number]) [address], [address] [place] [address] [facility] No Panel Informationon 10-14 Interpretation and review of laboratory results Abnormal [facility] PHOSPHORUSon 10-15-2023 Phosphate [Mass/Vol] 5.7 mg/dL High 2.4-4.[address] [facility] Comment on above: Result Comment: SPEC IMEN HEMOLYZED, RESULTS INCREASED MODERATELY HEMOLYZED Performed By: #### P INR, 18564-6, 718-7, PLTCT, BMP, 71219-0 #### [facility] ([id number]) [address], [address] [place] [address] PLATELET COUNT AND MPVon Platelet mean volume (Bld) [Entitic vol] 8.3 fL Normal 7-[address] [facility] Comment on above: Performed By: #### P INR, 02608-0, 718-7, PLTCT, BMP, 80934-5 #### [facility] ([id number]) [address], [address] [place] [address] Platelets (Bld) [#/Vol] 219 10*3/uL Normal 150-[address] [facility] Comment on above: Performed By: #### P INR, 29982-8, 718-7, PLTCT, BMP, 50547-2 #### [facility] ([id number]) [address], [address] [place] [address] Phosphoruson 10-15-2023 Phosphate [Mass/Vol] 5.7 mg/dL High 2.4 - 4.9 mg/dL [facility] Comment on above: SPECIMEN HEMOLYZED, RESULTS INCREASED MODERATELY HEMOLYZED Platelet counton 10-15-2023 Platelet mean volume (Bld) [Entitic vol] 8.3 fL 7 - 12 fL [facility] Platelets (Bld) [#/Vol] 219 10*3/[facility]L [facility] Single view[facility] 10-14 Kay Dunn DO - 10/15/2023 Procedure: Chest x-ray performed Number of views:AP view History:Hypoxia Comparison:10/12/2023 Findings: The heart and mediastinal silhouette are stable. There is pulmonary vascular congestion. There are no focal consolidations. There is a small left pleural effusion. There is no pneumothorax Impression: Pulmonary vascular congestion. Finalized by Kay Dunn DO on 10/15/2023 10:48 AM [facility] Radiology Study observation (narrative) Aerospike [facility] [employer] XR Chest Single viewOrdered By: Kay Dunn on 10-15-2023 [facility] Work Phone: Anti XA unfractionated hepar inon 10-14-2023 Heparin unfractionated Chromogenic method Qn (PPP) Low [facility] Comment on above: Optimal time for marky ting is 6 hrs post dosage This test is specific for monitoring patients on UFH, and is not recommended for use with other Anti-Xa medications. Heparin unfractionated Chromogenic method Qn (PPP) 0.68 [facility] Comment on above: Optimal time for marky ting is 6 hrs post dosage This test is specific for monitoring patients on UFH, and is not recommended for use with other Anti-Xa medications. BASIC METABOLIC PANLon 10-13 Anion gap [Moles/Vol] 11 mmol/L Normal 5-[address] [facility] Comment on above: Performed By: #### P INR, 18141-8, 718-7, PLTCT, BMP, 59593-4 #### [facility] ([id number]) [address] [facility] [place] [address] Calcium [Mass/Vol] 7.4 mg/dL Low 8.5-10.5 [facility] Comment on above: Performed By: #### P INR, 93521-6, 718-7, PLTCT, BMP, 18503-2 #### [facility] ([id number]) [address], [address] [place] [address] Chloride [Moles/Vol] 100 mmol/L Normal 98-[address] [facility] Comment on above: Performed By: #### P INR, 96727-6, 718-7, PLTCT, BMP, 25347-4 #### [facility] ([id number]) [address], [address] [place] [address] CO2 [Moles/Vol] 30 mmol/L Normal 22-[address] [facility] Comment on above: Performed By: #### P INR, 74190-0, 718-7, PLTCT, BMP, 57621-2 #### [facility] ([id number]) [address], [address] [place] [address] Creatinine [Mass/Vol] 1.05 mg/dL High 0.40-1.[address] [facility] Comment on above: Result Comment: METH OD TRACEABLE TO IDMS STANDARD Performed By: #### P INR, 49312-8, 718-7, PLTCT, BMP, 53440-1 #### [facility] ([id number]) [address], [address] [place] [address] GFR/1.73 sq M.predicted among non-blacks MDRD (S/P/Bld) [Vol rate/Area] 58 mL/min/{1.73_m2} Low >[address] [facility] Comment on above: Result Comment: Reported eGFR is based on the CKD-EPI 2020 equation that does not use a race coefficient. Performed By: #### P INR, 49170-8, 718-7, PLTCT, BMP, 08511-7 #### [facility] ([id number]) [address], [address] [place] [address] Glucose [Mass/Vol] 122 mg/dL High 65-99 [facility] Comment on above: Performed By: #### P INR, 27756-1, 718-7, PLTCT, BMP, 82370-7 #### [facility] ([id number]) [address], [address] [place] [address] Potassium [Moles/Vol] 4.4 mmol/L Normal 3.5-5.[address] [facility] Comment on above: Performed By: #### P INR, 74731-0, 718-7, PLTCT, BMP, 15809-2 #### [facility] ([id number]) [address], [address] [place] [address] Sodium [Moles/Vol] 141 mmol/L Normal 134-146 [facility] Comment on above: Performed By: #### P INR, 23306-5, 718-7, PLTCT, BMP, 10836-8 #### [facility] ([id number]) [address], [facility] [address] [place] [address] Urea nitrogen [Mass/Vol] 22 mg/dL Normal 5-[address] [facility] Comment on above: Performed By: #### P INR, 89104-2, 718-7, PLTCT, BMP, 83269-5 #### [facility] ([id number]) [address], [address] [address] Basic Metabolic Panelon 04-0 Anion gap [Moles/Vol] 11 mmol/L 5 - 15 mmol/L [facility] Calcium [Mass/Vol] 7.4 mg/dL Low 8.5 - 10. 5 mg/dL [facility] Chloride [Moles/Vol] 100 mmol/L 98 - 109 mmol/L [facility] CO2 [Moles/Vol] 30 mmol/L 22 - 32 mmol/L [facility] Creatinine [Mass/Vol] 1.05 mg/dL High 0.40 - 1.00 mg/dL [facility] Comment on above: METHOD TRACEABLE TO IDMS STANDARD eGFR (CKD-EPI)non-race dependent 58 Low - PINF [facility] Comment on above: Reported eGFR is based on the CKD-EPI 2020 equation that does not use a race coefficient. Glucose [Mass/Vol] 122 mg/dL High 65 - 99 mg/dL [facility] Interpretation and review of laboratory results Abnormal [facility] Potassium [Moles/Vol] 4.4 mmol/L 3.5 - 5.0 mmol/L [facility] Sodium [Moles/Vol] 141 mmol/L 134 - 146 mmol/L [facility] Urea nitrogen [Mass/Vol] 22 mg/dL 5 - 27 mg/dL [facility] CBC without diffon Erythrocyte distribution width (RBC) [Ratio] 13.0 % 11.5 - 15.0 % [facility] Hematocrit (Bld) [Volume fraction] 37.7 % 35 - 47 % [facility] Hemoglobin (Bld) [Mass/Vol] 12.5 g/dL 11.7 - 15.5 g/dL [facility] Interpretation and review of laboratory results Abnormal [facility] MCH (RBC) [Entitic mass] 34.4 pg High 27 - 34 pg [facility] MCHC (RBC) [Mass/Vol] 33.1 g/dL 32 - 36 g/dL [facility] MCV (RBC) [Entitic vol] 104 fL High 80 - 100 fL [facility] Platelet mean volume (Bld) [Entitic vol] 8.8 fL 7 - 12 fL [facility] Platelets (Bld) [#/Vol] 207 10*3/uL [facility] RBC (Bld) [#/Vol] 3.64 10*6/uL Low [facility] WBC corrected for nucl RBC Auto (Bld) [#/Vol] 8.4 [facility] COMPLETE BLOOD COUNTon 10-13 Erythrocyte distribution width (RBC) [Ratio] 13.0 % Normal 11.5-15.[address] [facility] Comment on above: Performed By: #### P INR, 93967-3, 718-7, PLTCT, BMP, 29071-2 #### [facility] ([id number]) [address], [address] [place] [address] Hematocrit (Bld) [Volume fraction] 37.7 % Normal 35-[address] [facility] Comment on above: Performed By: #### P INR, 80393-2, 718-7, PLTCT, BMP, 36359-1 #### [facility] ([id number]) [address], [address] [place] [address] Hemoglobin (Bld) [Mass/Vol] 12.5 g/dL Normal 11.7-15.[address] [facility] Comment on above: Performed By: #### P INR, 13376-5, 718-7, PLTCT, BMP, 56789-5 #### [facility] ([id number]) [address], [facility] [address] [place] [address] MCH (RBC) [Entitic mass] 34.4 pg High 27-[address] [facility] Comment on above: Performed By: #### P INR, 41482-0, 718-7, PLTCT, BMP, 27846-1 #### [facility] ([id number]) [address], [address] [place] [address] MCHC (RBC) [Mass/Vol] 33.1 g/dL Normal 32-[address] [facility] Comment on above: Performed By: #### P INR, 92703-4, 718-7, PLTCT, BMP, 95170-4 #### [facility] ([id number]) [address], [address] [place] [address] MCV (RBC) [Entitic vol] 104 fL High 80-[address] [facility] Comment on above: Performed By: #### P INR, 14037-3, 718-7, PLTCT, BMP, 19495-7 #### [facility] ([id number]) [address], [address] [place] [address] Platelet mean volume (Bld) [Entitic vol] 8.8 fL Normal 7-[address] [facility] Comment on above: Performed By: #### P INR, 69412-2, 718-7, PLTCT, BMP, 25021-9 #### [facility] ([id number]) [address], [address] [place] [address] Platelets (Bld) [#/Vol] 207 10*3/uL Normal 150-[address] [facility] Comment on above: Performed By: #### P INR, 06917-7, 718-7, PLTCT, BMP, 10835-1 #### [facility] ([id number]) [address], [address] [place] [address] RBC COUNT 3.64 X10E12/L Low 3.80-5.[address] [facility] Comment on above: Performed By: #### P INR, 05043-1, 718-7, PLTCT, BMP, 73683-6 #### [facility] ([id number]) [address], [address] [place] [address] WBC (Bld) [#/Vol] 8.4 10*3/uL Normal 4.0-11.0 [facility] Comment on above: Performed By: #### P INR, 79434-0, 718-7, PLTCT, BMP, 34014-0 #### [facility] ([id number]) [address], [address] [place] [address] Calcium.ionized (Bld) [Mass/ Vol]on 10-14-2023 IONIZED CALCIUM 4.3 mg/dL Low 4.5-5.[address] [facility] Comment on above: Performed By: #### P INR, 49204-7, 718-7, PLTCT, BMP, 37986-7 #### [facility] ([id number]) [address], [address] [place] [address] Interpretation and review of laboratory results Abnormal [facility] IONIZED CALCIUM 3.9 mg/dL Low 4.5-5.[address] [facility] Comment on above: Performed By: #### P INR, 01725-2, 718-7, PLTCT, BMP, 43395-7 #### [facility] ([id number]) [address], [address] [place] [address] Interpretation and review of laboratory results Abnormal [facility] IONIZED CALCIUM 4.1 mg/dL Low 4.5-5.[address] [facility] Comment on above: Performed By: #### P INR, 34078-6, 718-7, PLTCT, BMP, 31844-1 #### [facility] ([id number]) [address], [address] [place] [address] Interpretation and review of laboratory results Abnormal [facility] Coronary angiography perform edon 10-14-2023 Addendum [...] the distal LAD after that reconstitutes via [id number] collaterals. The vessel is extremely small and not amenable to PCI. Intervention No interventions have been documented. Right Atrium Normal left and right heart filling pressures. Normal pulmonary arterial pressure mildly elevated left ventricular end-diastolic pressure normal cardiac output and cardiac index. [facility] Radiology Study observation (narrative) [facility] ECG 12 leadon 10-14-2023 TRACEMASTERVUE [facility] HGB A1C (GLYCO-HGB)on 2023 Glucose [Mass/Vol] 91 mg/dL Normal [facility] Comment on above: Performed By: #### P INR, 62899-5, 718-7, PLTCT, BMP, 68423-4 #### [facility] ([id number]) [address], [address] [place] [address] HbA1c (Bld) [Mass fraction] 4.8 % Normal 4.4-5.[address] [facility] Comment on above: Result Comment: NOTE ADA Guidelines Result HgbA1c Normal : less than 5.7 % Prediabetes : 5.7 % to 6.4 % Diabetes : > 6.4 % Use with caution in patients with abnormal hemoglobin variants as the half-life of red blood cells and in vivo glycation rates are affected. Performed By: #### P INR, 64517-0, 718-7, PLTCT, BMP, 97931-7 #### [facility] ([id number]) [address], [address] [place] [address] Hemoglobin A1con 10-14-2023 Average glucose Estimated from glycated hemoglobin (Bld) [Mass/Vol] 91 mg/dL [facility] HbA1c (Bld) [Mass fraction] 4.8 % 4.4 - 5.6 % [facility] Comment on above: NOTE ADA Guidelines Result HgbA1c Normal : less than 5.7 % Prediabetes : 5.7 % to 6.4 % Diabetes : > 6.4 % Use with caution in patients with abnormal hemoglobin variants as the half-life of red blood cells and in vivo glycation rates are affected. [facility] Heparin unfractionated Chrom ogenic method Qn (PPP)on 10-14-2023 ANTI XA UFH <0.04 Low 0.30-0.[address] [facility] Comment on above: Result Comment: Opti mal time for testing is 6 hrs post dosage This test is specific for monitoring patients on UFH, and is not recommended for use with other Anti-Xa medications. Performed By: #### P INR, 61335-9, 718-7, PLTCT, BMP, 49771-5 #### [facility] ([id number]) [address], [address] [place] [address] Interpretation and review of laboratory results Abnormal [facility] ANTI XA UFH 0.68 IU/mL Normal 0.30-0.[address] [facility] Comment on above: Result Comment: Opti mal time for testing is 6 hrs post dosage This test is specific for monitoring patients on UFH, and is not recommended for use with other Anti-Xa medications. Performed By: #### P INR, 62524-2, 718-7, PLTCT, BMP, 14236-1 #### [facility] ([id number]) [address], [address] [place] [address] [facility] Ionized calciumon 10-14-2023 Calcium.ionized (Bld) [Mass/Vol] 4.3 mg/dL Low 4.5 - 5.3 mg/dL [facility] Calcium.ionized (Bld) [Mass/Vol] 3.9 mg/dL Low 4.5 - 5.3 mg/dL [facility] Calcium.ionized (Bld) [Mass/Vol] 4.1 mg/dL Low 4.5 - 5.3 mg/dL [facility] Ionized magnesiumon 10-14-19 Magnesium Ionized ISE (Bld) [Moles/Vol] 0.54 mmol/L 0.45 - 0.74 mmol/L [facility] Comment on above: NEW REFERENCE RANGE Lipid 1996 panelon 4 Cholesterol [Mass/Vol] 135 mg/dL Low 150-[address] [facility] Comment on above: Performed By: #### P INR, 68851-2, 718-7, PLTCT, BMP, 77384-7 #### [facility] ([id number]) [address], [address] [place] [address] Cholesterol in HDL [Mass/Vol] 59 mg/dL Normal >[address] [facility] Comment on above: Result Comment: HDL <40 mg/dL - High Risk HDL > or = 40mg/dL- Desirable HDL >60 mg/dL - Negative Risk Performed By: #### P INR, 98687-0, 718-7, PLTCT, BMP, 70699-7 #### [facility] ([id number]) [address] [place] [address], [address] [place] [address] Cholesterol in LDL [Mass/Vol] 46 mg/dL Normal <[address] [facility] Comment on above: Result Comment: LDL <100 mg/dL - Desirable LDL >160 mg/dL - High Risk Performed By: #### P INR, 67898-0, 718-7, PLTCT, BMP, 87326-3 #### [facility] ([id number]) [facility], [address] [place] [address] Cholesterol in VLDL [Mass/Vol] 30 mg/dL Normal 0-[address] [facility] Comment on above: Performed By: #### P INR, 61414-7, 718-7, PLTCT, BMP, 23566-0 #### [facility] ([id number]) [address], [address] [place] [address] CHOLESTEROL:HDL 2.3 Normal 1.0-5.[address] [facility] Comment on above: Performed By: #### P INR, 27204-8, 718-7, PLTCT, BMP, 34696-7 #### [facility] ([id number]) [address], [address] [place] [address] Triglyceride [Mass/Vol] 150 mg/dL Normal 27-[address] [facility] Comment on above: Performed By: #### P INR, 45734-4, 718-7, PLTCT, BMP, 09409-3 #### [facility] ([id number]) [address], [address] [address] Cholesterol [Mass/Vol] 135 mg/dL Low 150 - 200 mg/dL [facility] Cholesterol in HDL [Mass/Vol] 59 mg/dL 39 - PINF mg/dL [facility] Comment on above: HDL <40 mg/dL - High Risk HDL > or = 40mg/dL- Desirable HDL >60 mg/dL - Negative Risk Cholesterol in LDL [Mass/Vol] 46 mg/dL NINF - 130 mg/dL [facility] Comment on above: LDL <100 mg/dL - Desirable LDL >160 mg/dL - High Risk Cholesterol in VLDL [Mass/Vol] 30 mg/dL 0 - 30 mg/dL [facility] Cholesterol.total/ Cholesterol in HDL [Mass ratio] 2.3 {ratio} 1.0 - 5.0 [facility] Interpretation and review of laboratory results Abnormal [facility] Triglyceride [Mass/Vol] 150 mg/dL 27 - 150 mg/dL [facility] MAGNESIUMon 10-14-2023 Magnesium [Mass/Vol] 1.8 mg/dL Normal 1.8-2.[address] [facility] Comment on above: Performed By: #### P INR, 84830-4, 718-7, PLTCT, BMP, 34995-9 #### [facility] ([id number]) [address], [address] [place] [address] Magnesiumon 10-14-2023 Magnesium [Mass/Vol] 1.8 mg/dL 1.8 - 2.6 mg/dL [facility] Magnesium Ionized ISE (Bld) [Moles/Vol]on 10-14-2023 Magnesium [Moles/Vol] 0.54 mmol/L Normal 0.45-0.[address] [facility] Comment on above: Result Comment: NEW REFERENCE RANGE Performed By: #### P INR, 67940-3, 718-7, PLTCT, BMP, 21610-0 #### [facility] ([id number]) [address], [address] [place] [address] [facility] No Panel Informationon 10-13 [facility] APTTon 10-13-2023 aPTT Coag (PPP) [Time] 48 s [facility] Anti XA unfractionated hepar inon 10-13-2023 Heparin unfractionated Chromogenic method Qn (PPP) 0.74 [facility] Comment on above: Optimal time for marky ting is 6 hrs post dosage This test is specific for monitoring patients on UFH, and is not recommended for use with other Anti-Xa medications. Heparin unfractionated Chromogenic method Qn (PPP) 0.69 [facility] Comment on above: Optimal time for marky ting is 6 hrs post dosage This test is specific for monitoring patients on UFH, and is not recommended for use with other Anti-Xa medications. Heparin unfractionated Chromogenic method Qn (PPP) 0.72 [facility] Comment on above: Optimal time for marky ting is 6 hrs post dosage This test is specific for monitoring patients on UFH, and is not recommended for use with other Anti-Xa medications. BASIC METABOLIC PANLon 10-12 Anion gap [Moles/Vol] 13 mmol/L Normal 5-[address] [facility] Comment on above: Performed By: #### P INR, 81119-0, 718-7, PLTCT, BMP, 08952-9 #### [facility] ([id number]) [address], [address] [place] [address] Calcium [Mass/Vol] 6.3 mg/dL Critically low 8.5-10.5 [facility] Comment on above: Performed By: #### P INR, 64624-3, 718-7, PLTCT, BMP, 13598-8 #### [facility] ([id number]) [address], [address] [place] [address] Chloride [Moles/Vol] 100 mmol/L Normal 98-[address] [facility] Comment on above: Performed By: #### P INR, 76215-3, 718-7, PLTCT, BMP, 66567-9 #### [facility] ([id number]) [address] [place] [address] CO2 [Moles/Vol] 30 mmol/L Normal 22-[address] [facility] Comment on above: Performed By: #### P INR, 79456-8, 718-7, PLTCT, BMP, 93524-4 #### [facility] ([id number]) [address], [address] [place] [address] Creatinine [Mass/Vol] 0.79 mg/dL Normal 0.40-1.[address] [facility] Comment on above: Result Comment: METH OD TRACEABLE TO IDMS STANDARD Performed By: #### P INR, 56899-8, 718-7, PLTCT, BMP, 07568-5 #### [facility] ([id number]) [address], [address] [place] [address] GFR/1.73 sq M.predicted among non-blacks MDRD (S/P/Bld) [Vol rate/Area] 81 mL/min/{1.73_m2} Normal >[address] [facility] Comment on above: Result Comment: Reported eGFR is based on the CKD-EPI 2020 equation that does not use a race coefficient. Performed By: #### P INR, 11154-8, 718-7, PLTCT, BMP, 81662-5 #### [facility] ([id number]) [address] [address] [place] [address] Glucose [Mass/Vol] 157 mg/dL High 65-99 [facility] Comment on above: Performed By: #### P INR, 97627-5, 718-7, PLTCT, BMP, 19419-7 #### [facility] ([id number]) [address], [facility] [address] [place] [address] Potassium [Moles/Vol] 3.4 mmol/L Low 3.5-5.[address] [facility] Comment on above: Performed By: #### P INR, 92507-1, 718-7, PLTCT, BMP, 03337-5 #### [facility] ([id number]) [address] [address] [place] [address] Sodium [Moles/Vol] 143 mmol/L Normal 134-146 [facility] Comment on above: Performed By: #### P INR, 50198-9, 718-7, PLTCT, BMP, 86007-9 #### [facility] ([id number]) [address] [address] [place] [address] Urea nitrogen [Mass/Vol] 16 mg/dL Normal 5-[address] [facility] Comment on above: Performed By: #### P INR, 04924-8, 718-7, PLTCT, BMP, 16422-2 #### [facility] ([id number]) [address], [facility] [address] [place] [address] Anion gap [Moles/Vol] 15 mmol/L Normal 5-[address] [facility] Comment on above: Performed By: #### P INR, 85361-0, 718-7, PLTCT, BMP, 88327-7 #### [facility] ([id number]) [address], [address] [place] [address] Calcium [Mass/Vol] 6.5 mg/dL Critically low 8.5-10.5 [facility] Comment on above: Performed By: #### P INR, 04606-6, 718-7, PLTCT, BMP, 04476-8 #### [facility] ([id number]) [address], [address] [place] [address] Chloride [Moles/Vol] 100 mmol/L Normal 98-[address] [facility] Comment on above: Performed By: #### P INR, 65235-7, 718-7, PLTCT, BMP, 68816-6 #### [facility] ([id number]) [address], [address] [place] [address] CO2 [Moles/Vol] 30 mmol/L Normal 22-[address] [facility] Comment on above: Performed By: #### P INR, 81341-5, 718-7, PLTCT, BMP, 29463-6 #### [facility] ([id number]) [address], [address] [place] [address] Creatinine [Mass/Vol] 0.88 mg/dL Normal 0.40-1.[address] [facility] Comment on above: Result Comment: METH OD TRACEABLE TO IDMS STANDARD Performed By: #### P INR, 34070-2, 718-7, PLTCT, BMP, 08523-0 #### [facility] ([id number]) [address], [address] [place] [address] GFR/1.73 sq M.predicted among non-blacks MDRD (S/P/Bld) [Vol rate/Area] 71 mL/min/{1.73_m2} Normal >[address] [facility] Comment on above: Result Comment: Reported eGFR is based on the CKD-EPI 2020 equation that does not use a race coefficient. Performed By: #### P INR, 86158-7, 718-7, PLTCT, BMP, 82766-1 #### [facility] ([id number]) [address], [address] [place] [address] Glucose [Mass/Vol] 154 mg/dL High 65-99 [facility] Comment on above: Performed By: #### P INR, 85054-9, 718-7, PLTCT, BMP, 34892-6 #### [facility] ([id number]) [address], [address] [place] [address] Potassium [Moles/Vol] 3.4 mmol/L Low 3.5-5.[address] [facility] Comment on above: Performed By: #### P INR, 93741-3, 718-7, PLTCT, BMP, 24449-7 #### [facility] ([id number]) [address], [address] [place] [address] Sodium [Moles/Vol] 145 mmol/L Normal 134-146 [facility] Comment on above: Performed By: #### P INR, 26352-4, 718-7, PLTCT, BMP, 86545-8 #### [facility] ([id number]) [address], [address] [place] [address] Urea nitrogen [Mass/Vol] 16 mg/dL Normal 5-[address] [facility] Comment on above: Performed By: #### P INR, 25319-6, 718-7, PLTCT, BMP, 62990-5 #### [facility] ([id number]) [address], [address] [place] [address] Basic Metabolic Panelon 04-0 Anion gap [Moles/Vol] 13 mmol/L 5 - 15 mmol/L [facility] Calcium [Mass/Vol] 6.3 mg/dL Critically low 8.5 - 1 0.5 mg/dL [facility] Chloride [Moles/Vol] 100 mmol/L 98 - 109 mmol/L [facility] CO2 [Moles/Vol] 30 mmol/L 22 - 32 mmol/L [facility] Creatinine [Mass/Vol] 0.79 mg/dL 0.40 - 1.00 mg/dL [facility] Comment on above: METHOD TRACEABLE TO [facility] STANDARD eGFR (CKD-EPI)non-race dependent 81 - PINF [facility] Comment on above: Reported eGFR is based on the CKD-EPI 2021 equation that does not use a race coefficient. Glucose [Mass/Vol] 157 mg/dL High 65 - 99 mg/dL [facility] Interpretation and review of laboratory results Abnormal [facility] Potassium [Moles/Vol] 3.4 mmol/L Low 3.5 - 5.0 mmol/L [facility] Sodium [Moles/Vol] 143 mmol/L 134 - 146 mmol/L [facility] Urea nitrogen [Mass/Vol] 16 mg/dL 5 - 27 mg/dL [facility] Anion gap [Moles/Vol] 15 mmol/L 5 - 15 mmol/L [facility] Calcium [Mass/Vol] 6.5 mg/dL Critically low 8.5 - 1 0.5 mg/dL [facility] Chloride [Moles/Vol] 100 mmol/L 98 - 109 mmol/L [facility] CO2 [Moles/Vol] 30 mmol/L 22 - 32 mmol/L [facility] Creatinine [Mass/Vol] 0.88 mg/dL 0.40 - 1.00 mg/dL [facility] Comment on above: METHOD TRACEABLE TO [facility] STANDARD eGFR (CKD-EPI)non-race dependent 71 - PINF [facility] Comment on above: Reported eGFR is based on the CKD-EPI 2021 equation that does not use a race coefficient. Glucose [Mass/Vol] 154 mg/dL High 65 - 99 mg/dL [facility] Potassium [Moles/Vol] 3.4 mmol/L Low 3.5 - 5.0 mmol/L [facility] Sodium [Moles/Vol] 145 mmol/L 134 - 146 mmol/L [facility] Urea nitrogen [Mass/Vol] 16 mg/dL 5 - 27 mg/dL [facility] CBC AND AUTO DIFFon 10-13-19 24 ABSOLUTE BASOPHIL 0.0 X10E9/L Normal 0.0-0.2 [facility] Comment on above: Performed By: #### C BCA, , THYR, 76633-9 #### [facility] ([id number]) [address], [address] [place] [address] ABSOLUTE NEUTROPHIL 4.2 X10E9/L Normal 1.5-6.[address] [facility] Comment on above: Performed By: #### Berhane ÁLVAREZ, , THYR, 65388-6 #### [facility] ([id number]) [address], [address] [place] [address] Basophils/100 WBC (Bld) 0.1 % Normal [facility] Comment on above: Performed By: #### Berhane ÁLVAREZ, , THYR, 07002-1 #### [facility] ([id number]) [address], [address] [place] [address] Eosinophils (Bld) [#/Vol] 0.0 10*3/uL Normal 0.0-0.[address] [facility] Comment on above: Performed By: #### Berhane BCA, , THYR, 51452-4 #### [facility] ([id number]) [address], [address] [place] [address] Eosinophils/100 WBC (Bld) 0.0 % Normal [facility] Comment on above: Performed By: #### Berhane BCA, , THYR, 06204-5 #### [facility] ([id number]) [address], [address] [place] [address] Erythrocyte distribution width (RBC) [Ratio] 12.5 % Normal 11.5-15.[address] [facility] Comment on above: Performed By: #### C BCA, , THYR, 67273-6 #### [facility] ([id number]) [address], [address] [place] [address] Hematocrit (Bld) [Volume fraction] 39.2 % Normal 35-[address] [facility] Comment on above: Performed By: #### Berhane BCA, , THYR, 96315-4 #### [facility] ([id number]) [address], [facility] [address] [place] [address] Hemoglobin (Bld) [Mass/Vol] 13.2 g/dL Normal 11.7-15.[address] [facility] Comment on above: Performed By: #### Berhane BCA, , THYR, 68882-5 #### [facility] ([id number]) [address] [address] [place] [address] Lymphocytes (Bld) [#/Vol] 0.9 10*3/uL Low 1.0-3.[address] [facility] Comment on above: Performed By: #### Berhane BCA, , THYR, 56981-3 #### [facility] ([id number]) [address] [address] [place] [address] Lymphocytes/100 WBC (Bld) 17.5 % Normal [facility] Comment on above: Performed By: #### C BCA, , THYR, 25991-4 #### [facility] ([id number]) [address], [address] [place] [address] MCH (RBC) [Entitic mass] 34.6 pg High 27-[address] [facility] Comment on above: Performed By: #### C BCA, , THYR, 65750-5 #### [facility] ([id number]) [address], [address] [place] [address] MCHC (RBC) [Mass/Vol] 33.6 g/dL Normal 32-[address] [facility] Comment on above: Performed By: #### Berhane ÁLVAREZ, , THYR, 82284-3 #### [facility] ([id number]) [address] [place] [address] MCV (RBC) [Entitic vol] 103 fL High 80-[address] [facility] Comment on above: Performed By: #### Berhane ÁLVAREZ, , THYR, 88657-8 #### [facility] ([id number]) [address], [facility] [address] [place] [address] Monocytes (Bld) [#/Vol] 0.1 10*3/uL Normal 0-0.[address] [facility] Comment on above: Performed By: #### Berhane ÁLVAREZ, , THYR, 25320-5 #### [facility] ([id number]) [address], [facility] [address] [place] [address] Monocytes/100 WBC (Bld) 2.5 % Normal [facility] Comment on above: Performed By: #### Berhane BCA, , THYR, 31916-7 #### [facility] ([id number]) [address] [address] [place] [address] Neutrophils/100 WBC (Bld) 79.9 % Normal [facility] Comment on above: Performed By: #### Berhane BCA, , THYR, 45410-8 #### [facility] ([id number]) [address], [facility] [address] [place] [address] Platelet mean volume (Bld) [Entitic vol] 8.6 fL Normal 7-[address] [facility] Comment on above: Performed By: #### Berhane BCA, , THYR, 93386-9 #### [facility] ([id number]) [address], [address] [place] [address] Platelets (Bld) [#/Vol] 176 10*3/uL Normal 150-[address] [facility] Comment on above: Performed By: #### Berhane BCA, 56909-3, THYR, 67168-6 #### [facility] ([id number]) [address], [address] [place] [address] RBC COUNT 3.80 X10E12/L Normal 3.80-5.[address] [facility] Comment on above: Performed By: #### Berhane ÁLVAREZ, 42189-1, THYR, 68671-8 #### [facility] ([id number]) [address], [facility] [address] [place] [address] WBC (Bld) [#/Vol] 5.3 10*3/uL Normal 4.0-11.0 [facility] [place] Comment on above: Performed By: #### Berhane ÁLVAREZ, , THYR, 92224-2 #### [facility] ([id number]) [address], [address] [place] [address] CBC auto differentialon 04-0 Basophils (Bld) [#/Vol] 0.0 10*3/uL [facility] Basophils/100 WBC (Bld) 0.1 % [facility] Eosinophils (Bld) [#/Vol] 0.0 10*3/uL [facility] Eosinophils/100 WBC (Bld) 0.0 % [facility] Erythrocyte distribution width (RBC) [Ratio] 12.5 % 11.5 - 15.0 % [facility] Hematocrit (Bld) [Volume fraction] 39.2 % 35 - 47 % [facility] Hemoglobin (Bld) [Mass/Vol] 13.2 g/dL 11.7 - 15.5 g/dL [facility] Interpretation and review of laboratory results Abnormal [facility] Lymphocytes (Bld) [#/Vol] 0.9 10*3/uL Low [facility] Lymphocytes/100 WBC (Bld) 17.5 % [facility] MCH (RBC) [Entitic mass] 34.6 pg High 27 - 34 pg [facility] MCHC (RBC) [Mass/Vol] 33.6 g/dL 32 - 36 g/dL [facility] MCV (RBC) [Entitic vol] 103 fL High 80 - 100 fL [facility] Monocytes (Bld) [#/Vol] 0.1 10*3/uL [facility] Monocytes/100 WBC (Bld) 2.5 % [facility] Neutrophils (Bld) [#/Vol] 4.2 10*3/uL [facility] Neutrophils/100 WBC (Bld) 79.9 % [facility] Platelet mean volume (Bld) [Entitic vol] 8.6 fL 7 - 12 fL [facility] Platelets (Bld) [#/Vol] 176 10*3/uL [facility] RBC (Bld) [#/Vol] 3.80 10*6/uL [facility] WBC corrected for nucl RBC Auto (Bld) [#/Vol] 5.[address] [facility] Calcium.ionized (Bld) [Mass/ Vol]on 10-13-2023 IONIZED CALCIUM 3.9 mg/dL Low 4.5-5.[address] [facility] Comment on above: Performed By: #### P INR, 59248-5, 718-7, PLTCT, BMP, 82748-1 #### [facility] ([id number]) [address] [facility] [place] [address] Interpretation and review of laboratory results Abnormal [facility] IONIZED CALCIUM 3.8 mg/dL Low 4.5-5.[address] [facility] Comment on above: Performed By: #### 3 8230-9, 98337-2 #### [facility] ([id number]) [address] [facility] [place] [address] Cardiac echo study Procedure on 10-13-2023 Aortic root 2.90 cm [facility] AV mean gradient 2.00 mmHg [facility] AV peak gradient 3.68 mmHg [facility] AV peak jeannie 95.90 cm/s [facility] AV valve area 2.03 cm2 [facility] AV Velocity Ratio 0.65 [facility] AV VTI 18.60 cm [facility] E wave deceleration time 124.00 msec [facility] E/A ratio 1.81 [facility] FS 11 % 28 - 44 % [facility] Interventricular Septum Diastolic Thickness by 2D 9 cm [facility] IVS 0.90 cm 0.6 - 1.1 cm [facility] LA size 3.10 cm [facility] LA volume 35.80 cm3 [facility] LA Volume Index 20.8 mL/m2 [facility] Left Ventricle Mass [id number] g [facility] LV ESV A2C 39.00 mL [facility] LV ESV A4C 31.30 mL [facility] LV RWT 2D 44.44 [facility] LVIDd 4.50 cm [facility] LVIDs 4.00 cm [facility] LVOT diameter 2.00 cm [facility] LVOT peak jeannie 0.58 m/s [facility] LVOT peak VTI 12.00 cm [facility] LVOT stroke volume 37.70 ml [facility] MV Peak A Jeannie 49.50 cm/s [facility] MV Peak E Jeannie 89.70 cm/s [facility] MV pressure 1/2 time 36.00 ms [facility] MV TDI E' (medial) 10.60 cm/s [facility] MV valve area p 1/2 method 6.11 cm2 [facility] PW 1.00 cm 0.6 - 1.1 cm [facility] RA area 11.2 cm2 [facility] RV diastolic dimension (basal) 30.0 mm [facility] TAPSE 1.04 cm [facility] TDI 11.90 cm/s [facility] TR peak gradient 11.42 mmHg [facility] TR Peak Jeannie 1.7 m/s [facility] Valve area - Index 1.2 [facility] Left Ventricle: Syst olic function is severely [...] anteroseptal, apical septal and apical inferior. XCELERA [facility] Radiology Study observation (narrative) [facility] EKGon 10-13-2023 TRACEMASTERVUE [facility] Glucose Glucometer (BldC) [M ass/Vol]on 10-13-2023 Glucose [Mass/Vol] 173 mg/dL High 65-99 [facility] HEMOGLOBINon 10-13-2023 Hemoglobin (Bld) [Mass/Vol] 12.8 g/dL Normal 11.7-15.[address] [facility] Comment on above: Performed By: #### P INR, 30274-7, 718-7, PLTCT, BMP, 77625-9 #### [facility] ([id number]) [address], [address] [place] [address] Hemoglobinon 10-13-2023 Hemoglobin (Bld) [Mass/Vol] 12.8 g/dL 11.7 - 15.5 g/dL [facility] Heparin unfractionated Chrom ogenic method Qn (PPP)on 10-13-2023 ANTI XA UFH 0.74 IU/mL High 0.30-0.[address] [facility] Comment on above: Result Comment: Opti mal time for testing is 6 hrs post dosage This test is specific for monitoring patients on UFH, and is not recommended for use with other Anti-Xa medications. Performed By: #### P INR, 14973-3, 718-7, PLTCT, BMP, 06522-4 #### [facility] ([id number]) [address], [address] [place] [address] Interpretation and review of laboratory results Abnormal [facility] ANTI XA UFH 0.69 IU/mL Normal 0.30-0.[address] [facility] Comment on above: Result Comment: Opti mal time for testing is 6 hrs post dosage This test is specific for monitoring patients on UFH, and is not recommended for use with other Anti-Xa medications. Performed By: #### P INR, 30288-3, 718-7, PLTCT, BMP, 49561-4 #### [facility] ([id number]) [address], [address] [place] [address] [facility] ANTI XA UFH 0.72 IU/mL High 0.30-0.[address] [facility] Comment on above: Result Comment: Opti mal time for testing is 6 hrs post dosage This test is specific for monitoring patients on UFH, and is not recommended for use with other Anti-Xa medications. Performed By: #### P INR, 94455-7, 718-7, PLTCT, BMP, 15689-9 #### [facility] ([id number]) [address] [facility] [place] [address] Interpretation and review of laboratory results Abnormal [facility] Ionized calciumon 10-13-2023 Calcium.ionized (Bld) [Mass/Vol] 3.9 mg/dL Low 4.5 - 5.3 mg/dL [facility] Calcium.ionized (Bld) [Mass/Vol] 3.8 mg/dL Low 4.5 - 5.3 mg/dL [facility] Ionized magnesiumon 10-13-19 Magnesium Ionized ISE (Bld) [Moles/Vol] 0.64 mmol/L 0.45 - 0.74 mmol/L [facility] Comment on above: NEW REFERENCE RANGE Magnesium Ionized ISE (Bld) [Moles/Vol] 0.24 mmol/L Critically low 0.45 - 0.74 mmol/L [facility] Comment on above: NEW REFERENCE RANGE MAGNESIUMon 10-13-2023 Magnesium [Mass/Vol] 1.1 mg/dL Low 1.8-2.[address] [facility] Comment on above: Performed By: #### P INR, 23302-4, 718-7, PLTCT, BMP, 36824-7 #### [facility] ([id number]) [address] [facility] [place] [address] Magnesiumon 10-13-2023 Magnesium [Mass/Vol] 1.1 mg/dL Low 1.8 - 2.6 mg/dL [facility] Magnesium Ionized ISE (Bld) [Moles/Vol]on 10-13-2023 Magnesium [Moles/Vol] 0.64 mmol/L Normal 0.45-0.[address] [facility] Comment on above: Result Comment: NEW REFERENCE RANGE Performed By: #### P INR, 49685-9, 718-7, PLTCT, BMP, 77319-0 #### [facility] ([id number]) [address], [address] [place] [address] Magnesium [Moles/Vol] 0.24 mmol/L Critically low 0.45-0.[address] [facility] Comment on above: Result Comment: NEW REFERENCE RANGE Performed By: #### 3 8230-9, 02315-1 #### [facility] ([id number]) [address] [facility], [address] [place] [address] Magnesium [Mass/Vol]on 10-12 Interpretation and review of laboratory results Abnormal [facility] Natriuretic peptide B [Mass/ Vol]on 10-13-2023 Natriuretic peptide B (Bld) [Mass/Vol] 1101 pg/mL High <100.[address] [facility] Comment on above: Performed By: #### P INR, 09588-4, 718-7, PLTCT, BMP, 64644-7 #### [facility] ([id number]) [address] [facility], [address] [place] [address] Interpretation and review of laboratory results Abnormal [facility] Natriuretic peptide B (Bld) [Mass/Vol] 1101 pg/mL High NINF - 100.0 pg/mL [facility] No Panel Informationon 10-[address] [facility] Interpretation and review of laboratory results Abnormal [facility] Interpretation and review of laboratory results Abnormal [facility] Interpretation and review of laboratory results Abnormal [facility] PLATELET COUNT AND MPVon Platelet mean volume (Bld) [Entitic vol] 8.8 fL Normal 7-[address] [facility] Comment on above: Performed By: #### P INR, 04809-9, 718-7, PLTCT, BMP, 97002-8 #### [facility] ([id number]) [address], [address] [place] [address] Platelets (Bld) [#/Vol] 158 10*3/uL Normal 150-[address] [facility] Comment on above: Performed By: #### P INR, 65510-2, 718-7, PLTCT, BMP, 41505-3 #### [facility] ([id number]) [address], [address] [place] [address] POTASSIUMon 10-13-2023 Potassium [Moles/Vol] 4.5 mmol/L Normal 3.5-5.[address] [facility] Comment on above: Performed By: #### P INR, 73828-8, 718-7, PLTCT, BMP, 18483-0 #### [facility] ([id number]) [address], [facility] [address] [place] [address] Potassium [Moles/Vol] 3.1 mmol/L Low 3.5-5.[address] [facility] Comment on above: Performed By: #### P INR, 74547-0, 718-7, PLTCT, BMP, 69693-7 #### [facility] ([id number]) [address], [address] [place] [address] PROTIME AND INRon 10-13-2023 INR Coag (PPP) [Relative time] 1.4 {INR} High 0.8-1.[address] [facility] Comment on above: Performed By: #### P INR, 30877-5, 718-7, PLTCT, BMP, 81263-0 #### [facility] ([id number]) [address] [facility] [address] [place] [address] PT Coag (PPP) [Time] 16.6 s High 9.8-13.[address] [facility] Comment on above: Performed By: #### P INR, 44630-8, 718-7, PLTCT, BMP, 91213-5 #### [facility] ([id number]) [address], [address] [place] [address] Platelet counton 10-13-2023 Platelet mean volume (Bld) [Entitic vol] 8.8 fL 7 - 12 fL [facility] Platelets (Bld) [#/Vol] 158 10*3/uL [facility] Potassiumon 10-13-2023 Potassium [Moles/Vol] 4.5 mmol/L 3.5 - 5.0 mmol/L [facility] Potassium [Moles/Vol] 3.1 mmol/L Low 3.5 - 5.0 mmol/L [facility] Potassium [Moles/Vol]on [facility] Interpretation and review of laboratory results Abnormal [facility] Protime & INRon 10-13-2023 INR Coag (PPP) [Relative time] 1.4 {INR} High [facility] PT Coag (PPP) [Time] 16.6 s High [facility] THYROID PROFILEon 10-13-2023 Free T4 [Mass/Vol] 1.15 ng/dL Normal 0.61-1.60 [facility] Comment on above: Performed By: #### P INR, 92949-8, 718-7, PLTCT, BMP, 08486-2 #### [facility] ([id number]) [address], [address] [place] [address] TSH 1.80 uIU/mL Normal 0.49-4.[address] [facility] Comment on above: Performed By: #### P INR, 36590-6, 718-7, PLTCT, BMP, 18022-5 #### [facility] ([id number]) [address], [address] [place] [address] TROPONIN Ion 10-13-2023 Troponin I.cardiac [Mass/Vol] 9.76 ng/mL Critically high 0.00-0.[address] [facility] Comment on above: Result Comment: Concentrations greater than or equal to 0.05 ng/ml are considered elevated. Elevations of Troponin may be due to causes other than myocardial ischemia. Recommend serial Troponin testing be performed. Performed By: #### P INR, 28523-3, 718-7, PLTCT, BMP, 03937-3 #### [facility] ([id number]) [address] [facility] [place] [address] Troponin I.cardiac [Mass/Vol] 13.09 ng/mL Critically high 0.00-0.[address] [facility] Comment on above: Result Comment: Concentrations greater than or equal to 0.05 ng/ml are considered elevated. Elevations of Troponin may be due to causes other than myocardial ischemia. Recommend serial Troponin testing be performed. Performed By: #### P INR, 57301-9, 718-7, PLTCT, BMP, 51252-1 #### [facility] ([id number]) [facility] [place] [address] Troponin I.cardiac [Mass/Vol] 13.88 ng/mL Critically high 0.00-0.[address] [facility] Comment on above: Result Comment: Concentrations greater than or equal to 0.05 ng/ml are considered elevated. Elevations of Troponin may be due to causes other than myocardial ischemia. Recommend serial Troponin testing be performed. Performed By: #### P INR, 63702-3, 718-7, PLTCT, BMP, 57512-0 #### [facility] ([id number]) [address] [facility], [address] [place] [address] Thyroid profile includes TSH FT4on 10-13-2023 Free T4 [Mass/Vol] 1.15 ng/dL 0.61 - 1. 60 ng/dL [facility] TSH Qn 1.80 m[IU]/L [facility] Troponin Ion 10-13-2023 Troponin I.cardiac [Mass/Vol] 9.76 ng/mL Critically high 0.00 - 0.04 ng/mL [facility] Comment on above: Concentrations greater than or equal to 0.05 ng/ml are considered elevated. Elevations of Troponin may be due to causes other than myocardial ischemia. Recommend serial Troponin testing be performed. Troponin I.cardiac [Mass/Vol] 13.09 ng/mL Critically high 0.00 - 0.04 ng/mL [facility] Comment on above: Concentrations greater than or equal to 0.05 ng/ml are considered elevated. Elevations of Troponin may be due to causes other than myocardial ischemia. Recommend serial Troponin testing be performed. Troponin I.cardiac [Mass/Vol] 13.88 ng/mL Critically high 0.00 - 0.04 ng/mL [facility] Comment on above: Concentrations greater than or equal to 0.05 ng/ml are considered elevated. Elevations of Troponin may be due to causes other than myocardial ischemia. Recommend serial Troponin testing be performed. Troponin I.cardiac [Mass/Vol ]on 10-13-2023 Interpretation and review of laboratory results Abnormal [facility] Interpretation and review of laboratory results Abnormal [facility] aPTT Coag (PPP) [Time]on aPTT Coag (Bld) [Time] 48 s High 26-[address] [facility] Comment on above: Performed By: #### P INR, 26470-7, 718-7, PLTCT, BMP, 24807-5 #### [facility] ([id number]) [address] [facility] [place] [address] Glucose Glucometer (BldC) [M ass/Vol]on 10-12-2023 Glucose [Mass/Vol] 173 mg/dL High 65 - 99 mg/dL [facility] Interpretation and review of laboratory results Abnormal [facility] Carotid arteries - bilate ralon 10-06-2023 [...] previous report no significant changes were noted. [facility] Radiology Study observation (narrative) [facility] US Carotid arteries - bilate ralOrdered By: Sal Morris on 10-06-2023 [facility] [employer] Work Phone: Blood Urea Nitrogenon 2023 Urea nitrogen [Mass/Vol] 24 mg/dL Normal 02-04 [facility] Comment on above: Performed By: #### B UN, CREAT #### [facility] [address] Creatinineon 08-06-2023 Creatinine [Mass/Vol] 1.07 mg/dL Normal 0.60-1.20 [facility] Comment on above: Performed By: #### B UN, CREAT #### [facility] [address] Creatinine Clr Calc Pharmacy 43.30 Normal [facility] Comment on above: Result Comment: PERF ORMED BY: [place] [address] PATHOLOGIST TEXTILE CHEMIST LAURE BRANHAM M.D. Performed By: #### B UN, CREAT #### [address] GFR/1.73 sq M.predicted MDRD (S/P/Bld) [Vol rate/Area] 56.229 mL/min/{1.73_m2} Normal [facility] Comment on above: Performed By: #### B UN, CREAT #### [facility] [address] BNPon 10-15-2022 Natriuretic peptide B (Bld) [Mass/Vol] 732.0 pg/mL Normal <=900.0 [facility] Comment on above: Performed By: #### C CONNER, ELEC, BNP, BUN, TSH #### [facility] [address] [address] [address] Feliz Hilton BUNon 10-15-2022 Urea nitrogen [Mass/Vol] 31.0 mg/dL Critically high 7.0-18.0 [facility] Comment on above: Performed By: #### C CONNER, ELEC, BNP, BUN, TSH #### [facility] [address] [address] [address] Feliz Hilton CBC AUTO DIFFon 10-15-2022 BASO # 0.0 103/ul Normal 0.0-0.1 [facility] Comment on above: Performed By: #### C BC ####[facility] [address] [address]Dr. Yilan Hilton Basophils/100 WBC (Bld) 0.8 % Normal 0.2-2.0 [facility] Comment on above: Performed By: #### C BC ####[facility] [address] [place], [place] [address]Dr. Feliz Hilton EO # 0.1 103/ul Normal 0.0-0.7 [facility] Comment on above: Performed By: #### C BC ####[facility] [address] [place], [place] [address]Dr. Feliz Hilton Eosinophils/100 WBC (Bld) 2.3 % Normal 0.9-7.0 [facility] Comment on above: Performed By: #### C BC ####[facility] [address] [place], [place] [address]Dr. Feliz Hilton Erythrocyte distribution width (RBC) [Ratio] 19.8 % Critically high 11.0-15.0 [facility] Comment on above: Performed By: #### C BC ####[facility] [address] [place], [place] [address]Dr. Feliz Hilton Hematocrit (Bld) [Volume fraction] 36.1 % Normal 36.0-48.0 [facility] Comment on above: Performed By: #### C BC ####[facility] [address] [place], [place] [address]Dr. Feliz Hilton Hemoglobin (Bld) [Mass/Vol] 11.1 g/dL Critically low 12.0-16.0 [facility] Comment on above: Performed By: #### C BC ####[facility] [address] [place], [place] [address]Dr. Feliz Hilton IG # 0.01 10e3/ul Normal 0.00-0.03 [facility] Comment on above: Performed By: #### C BC ####[facility] [address] [place], [place] [address]Dr. Feliz Hilton IG % 0.2 % Normal 0.0-0.5 [facility] Comment on above: Performed By: #### C BC ####[facility] [address] [place], [place] [address]Dr. Feliz Hilton LYMPH # 2.1 103/ul Normal 1.2-3.8 [facility] Comment on above: Performed By: #### C BC ####[facility] [address] [address]Dr. Feliz Hilton Lymphocytes/100 WBC (Bld) 43.1 % Normal 20.5-60.0 [facility] Comment on above: Performed By: #### C BC ####[facility] [address] [address]Dr. Feliz Hilton MANUAL DIFF REQ NO Normal [facility] Comment on above: Performed By: #### C BC ####[facility] [address] [address]Dr. Feliz Hilton MCH (RBC) [Entitic mass] 28.7 pg Normal 26.7-34.0 [facility] Comment on above: Performed By: #### C BC ####[facility] [address] [address]Dr. Feliz Yobani MCHC (RBC) [Mass/Vol] 30.7 g/dL Normal 29.9-35.2 [facility] Comment on above: Performed By: #### C BC ####[facility] [address] [place], [place] [address]Dr. Feliz Hilton MCV (RBC) [Entitic vol] 93.3 fL Normal 81.0-99.0 [facility] Comment on above: Performed By: #### C BC ####[facility] [address] [address]Dr. Feliz Hilton MONO # 0.4 103/ul Normal 0.3-0.8 [facility] Comment on above: Performed By: #### C BC ####[facility] [address] [place], [place] [address]Dr. Feliz Hilton Monocytes/100 WBC (Bld) 9.0 % Normal 1.7-12.0 [facility] Comment on above: Performed By: #### C BC ####[facility] [address] [place], [place] [address]Dr. Feliz Hilton NEUT # 2.1 103/ul Normal 1.4-6.5 [facility] Comment on above: Performed By: #### C BC ####[facility] [address] [address]Dr. Feliz Hilton Neutrophils/100 WBC (Bld) 44.6 % Normal 43.0-75.0 [facility] [facility] Comment on above: Performed By: #### C BC ####[facility] [address] [place] [address]Dr. Feliz Hilton Platelet mean volume (Bld) [Entitic vol] 9.5 fL Normal 9.5-13.5 [facility] Comment on above: Performed By: #### C BC ####[facility] [address] [place] [address]Dr. Feliz Yobani PLT 273 103/ul Normal 150-450 [facility] Comment on above: Performed By: #### C BC ####[facility] [address] [place] [address]Dr. Mónicaaureliano Yobani RBC 3.87 106/ul Critically low 4.20-5.40 [facility] Comment on above: Performed By: #### C BC ####[facility] [address] [place] [address]Dr. Feliz Yobani WBC 4.8 103/ul Normal 4.0-11.0 The [facility] Comment on above: Performed By: #### C BC ####[facility] [address] [place] [address]DrJuan F Hilton CREATININEon 10-15-2022 Creatinine [Mass/Vol] 1.02 mg/dL Normal 0.55-1.02 The [facility] Comment on above: Performed By: #### C CONNER, ELEC, BNP, BUN, TSH #### [facility] [address] [address] [address] Feliz Hilton EGFR-AF KYRGYZ >60 Normal >=60 [facility] Comment on above: Performed By: #### C CONNER, ELEC, BNP, BUN, TSH #### [facility] [address] [address] [address] Feliz Hilton EGFR-NON AF KYRGYZ 54 mL/min/1.73m2 Critically low >=60 The [facility] Comment on above: Performed By: #### C CONNER, ELEC, BNP, BUN, TSH #### [facility] [address] [place] [address] Dr. Feliz Hilton ELECTROLYTESon 10-15-2022 Anion gap [Moles/Vol] 14.7 mmol/L Normal [facility] Comment on above: Performed By: #### C CONNER, ELEC, BNP, BUN, TSH #### [facility] [address] [address] [address] Feliz Hilton Chloride [Moles/Vol] 109 mmol/L Critically high 98-107 [facility] Comment on above: Performed By: #### C CONNER, ELEC, BNP, BUN, TSH #### [facility] [address] [place] [address] Dr. Feliz Hilton CO2 [Moles/Vol] 20.6 mmol/L Critically low 21.0-32.0 [facility] Comment on above: Performed By: #### C CONNER, ELEC, BNP, BUN, TSH #### [facility] [address] [place] [address] Dr. Feliz Hilton Potassium [Moles/Vol] 5.3 mmol/L Critically high 3.5-5.1 [facility] Comment on above: Performed By: #### C CONNER, ELEC, BNP, BUN, TSH #### [facility] [address] [place] [address] Dr. Feliz Hilton Sodium [Moles/Vol] 139 mmol/L Normal 136-145 [facility] Comment on above: Performed By: #### C CONNER, ELEC, BNP, BUN, TSH #### [facility] [address] [place] [address] Dr. Feliz Hilton TSHon 10-15-2022 TSH 3.265 uIU/mL Normal 0.358-3.740 [facility] Comment on above: Performed By: #### C CONNER, ELEC, BNP, BUN, TSH #### [facility] [address] [address] [address] Feliz Hiltno BNPon 07-16-2022 Natriuretic peptide B (Bld) [Mass/Vol] 1093.0 pg/mL Critically high <=900.0 [facility] Comment on above: Performed By: #### T SH, LIPID, ELEC, LIVER, CREA, BUN, BNP ####[facility] [address] [place] [address]Dr. Feliz Hilton BUNon 07-16-2022 Urea nitrogen [Mass/Vol] 23.0 mg/dL Critically high 7.0-18.0 [facility] Comment on above: Performed By: #### T SH, LIPID, ELEC, LIVER, CREA, BUN, BNP ####[facility] [address] [place] [address]Dr. Feliz Hilton CBC AUTO DIFFon 07-16-2022 BASO # 0.1 103/ul Normal 0.0-0.1 [facility] Comment on above: Performed By: #### C BC #### [facility] [address] [address] [address] Feliz Hilton Basophils/100 WBC (Bld) 1.3 % Normal 0.2-2.0 [facility] Comment on above: Performed By: #### C BC #### [facility] [address] [place] [address] Dr. Feliz Hilton EO # 0.3 103/ul Normal 0.0-0.7 The [facility] Comment on above: Performed By: #### C BC #### [facility] [address] [place] [address] Dr. Feliz Hilton Eosinophils/100 WBC (Bld) 7.2 % Critically high 0.9-7.0 The [facility] Comment on above: Performed By: #### C BC #### [facility] [address] [place] [address] Dr. Feliz Hilton Erythrocyte distribution width (RBC) [Ratio] 23.4 % Critically high 11.0-15.0 [facility] Comment on above: Performed By: #### C BC #### [facility] [address] [place] [address] Dr. Feliz Hilton Hematocrit (Bld) [Volume fraction] 30.8 % Critically low 36.0-48.0 [facility] Comment on above: Performed By: #### C BC #### [facility] [address] [place] [address] Dr. Feliz Hilton Hemoglobin (Bld) [Mass/Vol] 9.1 g/dL Critically low 12.0-16.0 [facility] Comment on above: Performed By: #### C BC #### [facility] [address] [place] [address] Dr. Feliz Hilton IG # 0.01 10e3/ul Normal 0.00-0.03 [facility] Comment on above: Performed By: #### C BC #### [facility] [address] [place] [address] Dr. Feliz Hilton IG % 0.3 % Normal 0.0-0.5 [facility] Comment on above: Performed By: #### C BC #### [facility] [address] [place] [address] Dr. Feliz Hilton LYMPH # 1.5 103/ul Normal 1.2-3.8 [facility] Comment on above: Performed By: #### C BC #### [facility] [address] [place] [address] Dr. Feliz Hilton Lymphocytes/100 WBC (Bld) 37.3 % Normal 20.5-60.0 [facility] Comment on above: Performed By: #### C BC #### [facility] [address] [place] [address] Dr. Feliz Hilton MANUAL DIFF REQ NO Normal [facility] Comment on above: Performed By: #### C BC #### [facility] [address] [place] [address] Dr. Feliz Hilton MCH (RBC) [Entitic mass] 23.9 pg Critically low 26.7-34.0 [facility] Comment on above: Performed By: #### C BC #### [facility] [address] [place] [address] Dr. Feliz Hilton MCHC (RBC) [Mass/Vol] 29.5 g/dL Critically low 29.9-35.2 [facility] Comment on above: Performed By: #### C BC #### [facility] [address] [place] [address] Dr. Feliz Hilton MCV (RBC) [Entitic vol] 81.1 fL Normal 81.0-99.0 [facility] Comment on above: Performed By: #### C BC #### [facility] [address] [place] [address] Dr. Feliz Hilton MONO # 0.4 103/ul Normal 0.3-0.8 [facility] Comment on above: Performed By: #### C BC #### [facility] [address] [place] [address] Dr. Feliz Hilton Monocytes/100 WBC (Bld) 10.3 % Normal 1.7-12.0 [facility] Comment on above: Performed By: #### C BC #### [facility] [address] [place] [address] Dr. Feliz Hilton NEUT # 1.7 103/ul Normal 1.4-6.5 [facility] Comment on above: Performed By: #### C BC #### [facility] [address] [place] [address] Dr. Feliz Hilton Neutrophils/100 WBC (Bld) 43.6 % Normal 43.0-75.0 [facility] Comment on above: Performed By: #### C BC #### [facility] [address] [place] [address] Dr. Feliz Hilton Platelet mean volume (Bld) [Entitic vol] 9.0 fL Critically low 9.5-13.5 The [facility] Comment on above: Performed By: #### C BC #### [facility] [address] [place] [address] Dr. Feliz Hilton PLT 285 103/ul Normal 150-450 [facility] Comment on above: Performed By: #### C BC #### [facility] [address] [place] [address] Dr. Feliz Hilton RBC 3.80 106/ul Critically low 4.20-5.40 [facility] Comment on above: Performed By: #### C BC #### [facility] [address] [address] [address] Feliz Hilton WBC 3.9 103/ul Critically low 4.0-11.0 [facility] Comment on above: Performed By: #### C BC #### [facility] [address] [address] [address] Feliz Hilton CREATININEon 07-16-2022 Creatinine [Mass/Vol] 0.87 mg/dL Normal 0.55-1.02 [facility] Comment on above: Performed By: #### T SH, LIPID, ELEC, LIVER, CREA, BUN, BNP ####[facility] [address] [place] [address]Dr. Feliz Hilton EGFR-AF KYRGYZ >60 Normal >=60 [facility] Comment on above: Performed By: #### T SH, LIPID, ELEC, LIVER, CREA, BUN, BNP ####[facility] [address] [place] [address]DrJuan F Hilton EGFR-NON AF KYRGYZ >60 Normal >=60 [facility] Comment on above: Performed By: #### T SH, LIPID, ELEC, LIVER, CREA, BUN, BNP ####[facility] [address] [place] [address]Dr. Feliz Hilton D-DIMERon 07-16-2022 D-DIMER 0.89 mg/L FEU Critically high <=0.59 [facility] Comment on above: Performed By: #### D DIM #### [facility] [address] [address] [address] Feliz Hilton D-DIMER COMMENTS SEE BELOW Normal [facility] Comment on above: Result Comment: Incr [...] hospitalization. Performed By: #### D DIM #### [facility] [address] [address] [address] Feliz Hilton ELECTROLYTESon 07-16-2022 Anion gap [Moles/Vol] 13.9 mmol/L Normal [facility] Comment on above: Performed By: #### T SH, LIPID, ELEC, LIVER, CREA, BUN, BNP ####[facility] [address] [place] [address]Dr. Feliz Hilton Chloride [Moles/Vol] 111 mmol/L Critically high 98-107 [facility] Comment on above: Performed By: #### T SH, LIPID, ELEC, LIVER, CREA, BUN, BNP ####[facility] [address] [place] [address]Dr. Feliz Hilton CO2 [Moles/Vol] 21.4 mmol/L Normal 21.0-32.0 [facility] Comment on above: Performed By: #### T SH, LIPID, ELEC, LIVER, CREA, BUN, BNP ####[facility] [address] [place] [address]Dr. Feliz Hilton Potassium [Moles/Vol] 4.3 mmol/L Normal 3.5-5.1 [facility] Comment on above: Performed By: #### T SH, LIPID, ELEC, LIVER, CREA, BUN, BNP ####[facility] [address] [place] [address]Dr. Feliz Hilton Sodium [Moles/Vol] 142 mmol/L Normal 136-145 [facility] Comment on above: Performed By: #### T SH, LIPID, ELEC, LIVER, CREA, BUN, BNP ####[facility] [address] [place] [address]Dr. Feliz Hilton GLYCOHEMOGLOBIN A1Con 2022 ADA RECOMMENDATION SEE BELOW Normal [facility] Comment on above: Result Comment: ADA RECOMMENDED LIMIT 4.0 - 6.0 ADA THERAPEUTIC TARGET < 7.0 ACTION SUGGESTED > 7.0 Performed By: #### A 1C ####[facility] [address] [place], [place] [address]KmDr. Feliz Hilton Glucose [Mass/Vol] 120 mg/dL Normal [facility] Comment on above: Performed By: #### A 1C ####[facility] [address] [place], [place] [address]WfDr. Feliz Hilton HbA1c (Bld) [Mass fraction] 5.8 % Normal 4.5-6.2 [facility] Comment on above: Performed By: #### A 1C ####[facility] [address] [place] [address]Dr. Feliz Hilton LIPID PROFILEon 07-16-2022 CHOL-HDL RATIO NORM SEE BELOW Normal [facility] Comment on above: Result Comment: 3.3 - 4.4 LOW RISK 4.4 - 7.1 AVERAGE RISK 7.1 - 11.0 MODERATE RISK >11.0 HIGH RISK Performed By: #### T SH, LIPID, ELEC, LIVER, CREA, BUN, BNP #### [facility] [address] [address] [address] Feliz Hilton Cholesterol [Mass/Vol] 107 mg/dL Normal <=200 [facility] Comment on above: Performed By: #### T SH, LIPID, ELEC, LIVER, CREA, BUN, BNP #### [facility] [address] [address] [address] Feliz Hilton Cholesterol in HDL [Mass/Vol] 52 mg/dL Normal 40-60 [facility] Comment on above: Performed By: #### T SH, LIPID, ELEC, LIVER, CREA, BUN, BNP #### [facility] [address] [address] [address] Feliz Hilton Cholesterol in LDL [Mass/Vol] 30.2 mg/dL Normal [facility] Comment on above: Performed By: #### T SH, LIPID, ELEC, LIVER, CREA, BUN, BNP #### [facility] [address] [address] [address] Feliz Hilton Cholesterol.total/ Cholesterol in HDL [Mass ratio] 2.1 {ratio} Normal [facility] Comment on above: Performed By: #### T SH, LIPID, ELEC, LIVER, CREA, BUN, BNP #### [facility] [address] [address] [address] Feliz Hilton HDL NORMAL > or = 60 mg/dl - LO W CARDIOVASCULAR RISK <40 mg/dl - HIGH CARDIOVASCULAR RISK Normal [facility] Comment on above: Performed By: #### T SH, LIPID, ELEC, LIVER, CREA, BUN, BNP #### [facility] [address] [place] [address] Dr. Feliz Hilton LDL CALC NORMAL SEE BELOW Normal [facility] Comment on above: Result Comment: <100 mg/dl OPTIMAL 100 - 129 mg/dl NEAR OR ABOVE OPTIMAL 130 - 159 mg/dl BORDERLINE HIGH 160 - 189 mg/dl HIGH >190 mg/dl VERY HIGH Performed By: #### T SH, LIPID, ELEC, LIVER, CREA, BUN, BNP #### [facility] [address] [place] [address] Dr. Feliz Hilton Triglyceride [Mass/Vol] 124 mg/dL Normal <=150 [facility] Comment on above: Performed By: #### T SH, LIPID, ELEC, LIVER, CREA, BUN, BNP #### [facility] [address] [place] [address] Dr. Feliz Hilton VLDL CALC 24.8 mg/dL Normal [facility] Comment on above: Performed By: #### T SH, LIPID, ELEC, LIVER, CREA, BUN, BNP #### [facility] [address] [place] [address] Dr. Feliz Hilton LIVER PROFILEon 07-16-2022 Albumin [Mass/Vol] 2.6 g/dL Critically low 3.4-5.0 [facility] Comment on above: Performed By: #### T SH, LIPID, ELEC, LIVER, CREA, BUN, BNP #### [facility] [address] [place] [address] Dr. Feliz Hilton Albumin/Globulin [Mass ratio] 0.8 {ratio} Normal [facility] Comment on above: Performed By: #### T SH, LIPID, ELEC, LIVER, CREA, BUN, BNP #### [facility] [address] [place] [address] Dr. Feliz Hilton ALP [Catalytic activity/Vol] 63 U/L Normal 46-116 [facility] Comment on above: Performed By: #### T SH, LIPID, ELEC, LIVER, CREA, BUN, BNP #### [facility] [address] [place] [address] Dr. Feliz Hilton ALT [Catalytic activity/Vol] 18 U/L Normal 14-59 [facility] Comment on above: Performed By: #### T SH, LIPID, ELEC, LIVER, CREA, BUN, BNP #### [facility] [address] [place] [address] Dr. Feliz Hilton AST [Catalytic activity/Vol] 23 U/L Normal 15-37 [facility] Comment on above: Performed By: #### T SH, LIPID, ELEC, LIVER, CREA, BUN, BNP #### [facility] [address] [place] [address] Dr. Feliz Hilton BILI, CONJUGATED 0.1 mg/dL Normal 0.0-0.2 [facility] Comment on above: Performed By: #### T SH, LIPID, ELEC, LIVER, CREA, BUN, BNP #### [facility] [address] [place] [address] Dr. Feliz Hilton Bilirubin [Mass/Vol] 0.1 mg/dL Critically low 0.2-1.0 [facility] Comment on above: Performed By: #### T SH, LIPID, ELEC, LIVER, CREA, BUN, BNP #### [facility] [address] [place] [address] Dr. Feliz Hilton Globulin (S) [Mass/Vol] 3.1 g/dL Normal [facility] Comment on above: Performed By: #### T SH, LIPID, ELEC, LIVER, CREA, BUN, BNP #### [facility] [address] [place] [address] Dr. Feliz Hilton Protein [Mass/Vol] 5.7 g/dL Critically low 6.4-8.2 [facility] Comment on above: Performed By: #### T SH, LIPID, ELEC, LIVER, CREA, BUN, BNP #### [facility] [address] [place], [place] [address] Dr. Feliz Hilton SED RATE WESTERGRENon 2022 SED RATE 14 mm/hr Normal <=30 [facility] Comment on above: Performed By: #### S EDR ####[facility] [address] [place] [address]Dr. Feliz Hilton TSHon 07-16-2022 TSH 5.167 uIU/mL Critically high 0.358-3.740 [facility] Comment on above: Performed By: #### T SH, LIPID, ELEC, LIVER, CREA, BUN, BNP ####[facility] [address] [place] [id number]. Feliz Hilton VITAMIN D 25 OHon 07-16-2022 VIT D 25-OH 22.4 ng/mL Normal [facility] Comment on above: Performed By: #### V ITAD ####[facility] [address] [place] [address]Dr. Feliz Hilton VIT D RANGES SEE BELOW Normal [facility] Comment on above: Result Comment: <20 ng/mL Vit D deficient 20 - <30 ng/mL Vit D insufficient 30 - 100 ng/mL Vit D sufficient >100 ng/mL Potential Toxicity Performed By: #### V ITAD ####[facility] [address] [place] [address]Dr. Feliz Hilton MG MAMM SCREEN 3D RELL CADon 06-14-2022 MG MAMM SCREEN 3D RELL CAD Patient: ASHVIN RENE Exam Date: 06/14/2022 : 1955 Gender:F Ordering : DR TUSHAR SOLANO D.O. Admission #: [id number] Family : Order #: [id number] CLICK HERE TO VIEW EXAM RADIOLOGY REPORT [...] No Treatments None Family Cancers None LOCATION: [facility] BREAST COMPOSITION: Scattered areas fibroglandular [...] Post MD on 06/14/2022 at 14:19 Normal [facility] XR hand RT min 3V*on 022 XR hand RT min 3V* [facility] [employer] Other XR hand RT min 3V* [facility] [employer] Other XR hand RT min 3V* [address] [place] [address] [employer] Other XR hand RT min 3V* [place] [address] [employer] Other XR hand RT min 3V* XRay Report [employer] Other XR hand RT min 3V* Signed [employer] Other XR hand RT min 3V* Patient: Annette Rene MR#: [id number] [employer] Other XR hand RT min 3V* 20 [employer] Other XR hand RT min 3V* : 1955 Acct:[id number] [employer] Other XR hand RT min 3V* Age/Sex: 66 / F ADM Date: 05/20/22 [employer] Other XR hand RT min 3V* Loc: [facility] Room: Ty pe: REG CLI [employer] Other XR hand RT min 3V* Attending Dr: Virginia FRANK [employer] Other XR hand RT min 3V* Copies to: ZAC Michaud [employer] Other XR hand RT min 3V* Ordering Provider: ZAC Perez [employer] Other XR hand RT min 3V* Date of Service: 05/20/22 [employer] Other XR hand RT min 3V* [id number]) XR/XR hand RT min 3V*: M79.641 [employer] Other XR hand RT min 3V* [address] film [employer] Other XR hand RT min 3V* COMPARISON:None [employer] Other XR hand RT min 3V* HISTORY:Right hand injury. [employer] Other XR hand RT min 3V* No fracture, disloca tion or focal soft tissue abnormality seen. Degenerative changes and [employer] Other XR hand RT min 3V* atherosclerosis. [employer] Other XR hand RT min 3V* X R/XR hand RT min 3V* [employer] Other XR hand RT min 3V* IMPRESSION:No acute findings [employer] Other XR hand RT min 3V* Impression dictated by: Rodrick Galvin M.D.05/20/2022 11:13 AM [employer] Other XR hand RT min 3V* Dictation Location: [place] [address] [employer] Other XR hand RT min 3V* Transcribed By: HERNAN 05/20/22 [address] [place] [employer] Other XR hand RT min 3V* Dictated By: Amadou Galvin DO 05/20/22 [address]111 [facility] [employer] Other XR hand RT min 3V* Signed By: [employer] Other XR hand RT min 3V* 05/20/22 [address] [facility] [employer] Other Coding Summaryon 08-21-2021 Coding Summary [employer] 64 JregemhrINs7dAw+PGhlYWQ+PE 9OGHQkE09rqQOecA2AM4xRQK7F CTPWQMHJCL2LZK2uiKX4YVqdW3 VybiAv OliwdJGjTK42ORc1BQI8gMzpOY vukP9hlQWsD1v4QvCuJD51zA16 MFvsPIDiXwS0XnSrdwrsfRPh S2kbCnZplITzMmp+PHRhYmxlIH waPQUuXEiqLOLyJwThsOubRQ1v Mx5lAMQmVHEptPgyiLWxTmQk z9sdDZVbSChmJU6enYezL6FhlI R8HLXmy3f2Yn58eHB+PHRkIHN0 aCowFYtcl944TpGyr7ziZGI7 xCEoDYygXUO5Q87el9Z5AKQmCA SqSBD0sJN4vG5pkNmtifbvX9Hn aBZuLfZ9KFP5hNVxtD0pyAcf jventD1tWks+I74XFD6JFYQORI 1OApq3B4FoFkmswHV+QD48VXTp DS33xCRloKTng9ndvHd6FpBy INWbQSL0uXrfJNowb9FeIQBcP5 1poNZtr5H6LXYcyCtggYGkCvEc bNZ9bH4mBPvdsixam7qjcyea Safyy0hkhd44eC55L85nYOyjJY HtXRC2ENQiAPNniClimh8odB1i Ii8+ROmxb8ihq1ispCr0CuHq EOUrfdEsyVoqDZJ4d5LxZm22Q9 DadGsnf3PgPpl0al94pPTiv4P8 bRR9MBbxBDYixH1zASiiTzW2 ZZShVaPpuD02bCYgYIsjMh2fiE gwiDliUD1gKISfbmzuVKRxyR2w PERqhFNdpMeaLW7zYXGkglku i611RyHfPAI8WJEqcILfQ5DdmC 9gDzCvSVSmWRSkB6GmcAIeGEbi Q673MVjzVlU0MDMbmfYvH8Ry ZXDmnJtyTbQ5l4Q2Zq2Sl0Nzgn awZQG7ZJtjZMFuInD0ByKlJzX9 G0DjPht1DXNmgPvsGA1hA5St BUOxpboqsywchUC8LGOuMEOjkQ 68dNJaYQhfFp7sw2T2l350PLMe FWKqzU89Ss4efNvxJZDyoZDA cV4kesstt7bpmcbpBlQlGBBcWV o6YXs0CQJjuFsiIlKrVUW3DdJ5 JEP7jHAruI1evFzarlbqvZ2o Oyc+I23toW8jXBQ2VDV8hwvgFA ApaeCaDH64TT73P6QqZcpztIZs bGU+XZCeizJbtBlsYX8xBuJu r7exg6AlZIchS8YeINThYNtgUf n0TJXwYPV7wKU2uZ7yTYYzAOpg l1Q2pLY6R3AgriNiwj8ah6jm ZSQtEBtaZ27azSIfr9L0LTJfdC M4JJHmsQxnZtFcwK65Yzq+PGNv cWozf0GhZlsav4rhx9ffqAz1 AfSgNDKjkvZusEfrJXQ8k6FqOq 47H48fBPljVDWzLIGhPZSjGVPx dBlruz5yaO4oEq0+PGNvbCB3 nQZ0nP9vDJDfDiU8YKgtR522Wd KxtLXyBshth3esa7rdvRd0NzTm XBXcclSauOabKSJ5p5LkZb78 L93fTRliUFIrHKCsZJFbNAEuxC npzy4odL9aPd0+MF6xw9rriy40 dC44hPJ+HSVxIOS1pWssINpd TOCerY3tQDzqQeN9CXEkNyTqoO 18oEHwMCceBb0mhJwewBwlAC2m WGXbqbqqh791XrAbp0kjDDVr vBTpOWxnVFH6Z34ff4E4ZAEhJU FgTZO8jAH7xJ1slDmrxssurILu yJyhphDtpPylLTvnGYuyR641 IHRvcDsnPlBhdGllbnQgTmFtZT e1N8TkGwf4YCLosPupVR0gaAMm GYxrHs9vnAjwwWxtDB8uNBZq yvjkn610DpCqb3ejLPMzsLFeRG frHRS2A04qg2L8OXOhKUEmCON6 qJS5sZ4lqWbbewrmsIIxlNkn koMobNhsVCfaGBsmD054JBJrrX dyJfGkfvLgVGAzwVB3SV92LJ87 lSAvr9G3jEN8R9QpJITyaxuf vqpejCE2HISjSDAvnR42Cn5sjX ozHd2nINNyUMF1FGVcmNSwT2Tt uG5yWeKrFVTfJKGtQ0BfhNNn CUuqJ625ETgiLnB9FSDlicShC5 KxVZHamXdlRxS3v6W6Uc9MP0L0 WN71TM17bRDys5H3eQJ2B6Cl MEAmvohemkbcgUF9PHOeFKNmrQ 63Ss8cmDbcEe4sQJVrNED1MKXd mULxY8FneZ6vTqTvGEFiPGJz H3AwaPGfBRdaV363BOjsZsP7XS YirqTtY9AuEWMeoWhpMnV6z2N3 Ay6UBHu1SM32DQ08rKYga3W2 xQE1I2NpNMVjbtjrsdjwoBJ3KA PrICHxfG83Ts9blApiKh5jYSMg WID5PETykRPhW6VtjL7sIbPl JWXnSHMjK7FauOZmGLouH278EP jkBlZ9WMNdhvQrO7SpIDAsjLqu FbP2z0G6Un0ZUBCvHF81IKL8 cZF9HM87CN69C1EoSqmfxUIliS U+PHRhYmxlIHdpZHRoPScxMDAl QmEjbVkcQQ9dCu5sJTVsXGZb yDubfEJoLuGii6naQMSbMEvoJE 8jvIuhE9RevGQ6GWZck6b5Ne61 V34cK1JosXN+KEYczFK1yIA9 oK6zYdHuRhA9WLhlD536OaTmnF GgWevfm2bjm6pggJy2HxZ1QEZz lrIlnHktQZE3d7XaHd29B69f IHdpZHRoPSIxNSUiIHZhbGlnbj 1fgQ1bIm2+FKPieVW6ePP6aA0v BzYvXlH2AQouC781DwJztNYu Ttxck2jfr0fucFk1JdIkRCQutz OdlVbvMBE3q9LkDd27Q5LkbKit e9XgPvp0ze78zQVul8J9uPL1 V7TnFPQatdkplHNkiPvzJL2xWC CehnykPJUwuJ2iVJZiG7j3DjHd ExR2HCjgT8IafvV5FZCquQTg FClaFQT9V03np2L2ABOnUMMmLC W4yNT5mS9leQfgwtpreTEcsKco hdZtkTdrDCdxIPqhC122JATk fYbgHVMssH2eICKvdZNloUzySO 8lQOTqopopOobBDz6NDukfS5EL XA5kLSzelSS+TDSvCWC0bUfn OVvyUXSweA6oMFOoV2n5RhBqTt R7PUdpH2QbRAQwukdcUg90aT0q UgYbUfB9RGuqY3ScpiA3MQTb sAPaRHfeDQK6Y11sj7P9CDPqKD SdQYA8nDD2mO8sxQtfwbmqsZEz vAldeoFgkJqsGCjtUBlqW596 ZNVsqUcuAtP0HjT9CfQ2REC3I9 HeQgt6PVNojDnjMR5qpPUhGXym Cg2wpHbzoTrqUG5oFCLdhsyd JIFpsI6hHYCkoUVblTnwZM5gLC Aqcrwbg874EuUkGLM5ZINdtIJi R3WitU2nIxMgZJRgDSEyX1Uv xHAuYJvxX656VQwlOqD4LURiaq OeU9CgVDYgwNzxOfE5q3U3Ga35 NyBZZWFyczwvdGQ+PHRkIHN0 uUsbJNwhNRYlaY0zWKYdD9m6Uu YdDyI3FWugL9MaWSBqkjztQu27 lB4tMnMrUcQ4MEguJ1NjojP9 DJIczPPhZVamJDX6S48hz9U5TG HtPVRpPSA8uZJ7pE1mkAropsmc bGVmdDsgdmVydGljYWwtYWxp P590CDBnrLvrNrJPFXYXWZdgoP Q+FCHdNNK9mAksASqlUKQfdC7p FECfB7z9LxBiDnI1JHzwS4Af HBNdavwdPy19yR4hDiHsPyX9DI isT3UcakC5XIEbuBOpRGliXLQ8 V72if1Y9DQSpBRLcWQR2sCF5 yC7dcRevikkxsVPfwFsenbRzzM jyDAvuVLleN146TZYrvRypEp1n o4UensD1pS9yYF14EJ13U7Sq PjwvdGFibGU+PHRhYmxlIHdpZH RoESqpWEVdKyWohNhiVL7jZm7z XCZcFXBryWslvELfDqLcn3ej TNLiWFseIY6wzWdyT9OvmOS3TS Lma4f6Be74L43gL4BreFO+PGNv vDH1lQR7uE8qLvAzMzD3KStg W102ZhXnkTWpIcczd5hwx8adoE k0WjEpHKGsyiEjcOxrKTP2o9Ns Bc31F65bWInuHMSzRIWzVZYo YSAkwJcxft3yoD2hQu5+PGNvbC X8kTY3sX1rSzFlLqE7MOqvB195 RyGwgYVpUrreJ57dA2AugTZ+ WBKpIzj8VBNbxZywRY6xkWTrCD ohMu1xDNN3XqPoNwKfRVblR6Fn QSTijlpgmstidRA7FXShKBVr iT58Qn7qcHnmTl1wSBWmIZP1DQ QsyGFlE6PrkP8tIaGdXQNoHADg F3OlxTHaYQxvA288OQqiPzK7 CEKckrEfC5WsGEOgnMiyYvQ8l3 R6Fd8HmEltaYXpTD4mDvBlYRz7 A8BtYmd4WAMxhYvyNY0hrXGv UGsvCs5piEwiuTqjTP4jQOGffk tec300NmHpr9ekYNWhzJLhLTqa COM2E73rb6T3GPAzWFJgQZH8 hKN7vT9rgXffvipklHWyyPczbu WxsTlmDWmxMRzoL851TJBaeWwu RgJIJbh9F0WdMae5BXAhxOro GY7hsNJdMEbsEo3peZlvcNjdVH 4aMTLsnvgps788TnMgw8zuSJKh pIJzZKkuLSX5B30xh4Q7OITj IMXmRXY6qMC6sC7swCvhdahlbY YlkMcocsEgbGifAOwhFBqqS556 GGVpxKhmPh6UNad4U0TcZlh8 KLSktJgwKS1mgYWrEBvvBt8rmW avcKgjZO0wKRCqcoxsx907BwQx d3swUTYnfZSqFFduLXX4T06e d7Y5ZQQaDAVcEGR6xFR0xD5mlG lnbjogbGVmdDsgdmVydGljYWwt WIqlV122VQRhfEexXtYhkRMp OjwvdGQ+MM79tp95P7YaMgnaDq c3SFAlCDG2fXN2rQ5bIHRkPIks o1S8pKX0I4BonrYfsl7os5ac YXB (more content not included)... [facility] Coding Summaryon 08-20-2021 Coding Summary HTMLBase 64 NvjkuqqoIAt5xRt+PGhlYWQ+PE 5KIELqW74bcTHtvD5IW1yEWN4F GGVCEWSUKL2HWZ6blIT5SSssQ5 VybiAv VwwbtCOiMW15SSr7LQN3vAwuPY xdzD5kxISxS4l2LyBzEE01nS98 LKvfNMMlKkF5EqOnldsrtLBd P5huKsLanPAqQrb+PHRhYmxlIH naDCKaVXkjIEFzIvUugFerRM9j Vo0dINUaSPZpwAfkuPQuKcAk k4piDMTlUXkmUY1sjIxlT7LleE G4HJGla5o9Cu46lAD+PHRkIHN0 tLirMInjs640FtUal5tuCZT7 nNYgJTttQYQ5C61zx1L0MXXcTK JvWSX7jIX8jW2jmPrpddjrD1Ga hVTuSyI5RVP1lGWfdS8ivXrs bkdeeZ7jWtv+G61LKJ9JPHKQVQ 9YRbr7E0SgHngnoNO+NO79DIFr BV87gCJogDZiw8sbeOg0NqNv YUSqIXB5mEylPNqdd2RfKBSbP1 0tpNSfi4R6LTRspLlhsVKuEhOo aET8lQ8uSMtmyqbcw5zsqffh Fsvko0kdyq45lE25W40jODkbCW NtJQX4VCFqQQDthXolse3tqZ6d Ii8+HXsqq3khj7vwvRw2TgFj YNIjchJjbMzfHKT7y6YhIb10V6 DmeSsse7LaEnm3tf86kNLll0Y1 zRH9BRbdXJJazO2mMPpdSqM3 XNNlGzLgzU10gTTiUTcnLe7tuF gecAyfKG7wSYOrhzfdMIAyaH7p IUOkiMEcbMccQN5mZPNicejf a005RvZoGFW9RQUjcOUuI4NirR 9bKwHeQFIrMBRyL0YqtSHlJUvs R895PSkiLrS2NVBrihKgB1Jb XAZqmRdeNmV2h2I5Xj7Js2Dtmn ppRBN7MFgrEYCkNoB7SrHvFvZ9 M1ScIzl3JRHfuZmgAO7nC2Qe IIMmoschazjchKW8LCZyMFZgwA 29bCSqHYbtYf3ig9Q5x130YBLv NFBbsM41Er5cvVlpWAQpaNFP yQ3jwjpnw7dnleimTzTeRHPvKX i4KHt3ZCTofSueXpEpAMA8NoQ0 LMM9tQMtaY3ddJlusocpvU0s Oyc+M40gjE5nJJH5NPB1xtjkMN FqjhTwHN10BU76D0PhMrgoeNDl bGU+SWQxkpSvoUlwJS1uNrYc v4obl5XcPWusU8XsMISoVQcbHh f7FMXfSDW1hFC4sF1mCVLoBAoq r3R4oEH6X0JzboMlgw1ve0vl HMYgNFffN46alIAso1S2GGTpqO Q0MWUmrDqlYaWnaF47Mjb+PGNv dErit7HtFmmky9ayk8dqtTu4 RzYrQOQfixTjsYpkXLM7v8KlNk 25Y47fEYgxCBGpMERyJLEyDZFo cBizjb7ajB6dOb9+PGNvbCB3 jNG9mG8sNJPtPlC2KQvdG855Im DmkXSvPqhjs8daf7zwcYl5JaRy XGZqyoRglCqoZDY9u5GaXx61 M44pROvtYGIiQADrPMEfVIBziX bqqx9dxS0sFy1+QP5jp5whzk99 vR78mDM+TCKnUPA6cXwwKXjv CIFhkP6sGEimRvI8CUTvAvXchC 48nNHbBElgSf2aiZjbrXzdUD1i NDFbczsih910AgOlc4dmULSd tITtAQctVHH8M98qr7L5BGTjID OzMCL8nBC5tC6vbPlzdqaliSEh jVzreyOlrBhvAFifSLykS255 IHRvcDsnPlBhdGllbnQgTmFtZT z4D1TwJnr7YPLeqQurYL8twMNd FXglMn9fsIateFuiQP9vKLAc mhsui344BwWbm1lzZLFxxXZgAZ smKJI5Y32re4G8NPSkYAFeZVY2 dWB8oE9hhMsbjeisiZZxvLwx cqSyzMwuKVabVDllE137KGHwoA pbQkGwmmMfVMPkrRL0UW21YS27 vQFnk4S2vJS2H9UaAVRdkqgp xmwyfRF3QXFlTGFqdM15Lw4sfD vpUz8zBNXtTWQ2EIAtqPNhH4Wn wG0mTrYhBOBhJEMrJ4TqxQLf VZvfN116SDlrZjB5AZVkyjJqB0 IcGSBtuSrpYhJ2l9N0Hc5YV5S7 AU94YA08xIGbw8V1rWE1Z2Si EPXqqzmuozlgqHR0LIPbUWImoC 51Wm2mfTfeMh2eAJTmLLV6AZKv bVFvP6QolI6aImXsSOEzQLFw K4GxdUXxYZgrI330OUizAyZ1UM WydwSeZ7QwBDCrpDkyKxC6f1G6 Rx4OIVn4UN30OY97zISud6J6 wFL3E5OvORUoedieujdkdWJ2QH EvVHShgO62Ig0wmOjnDj7nLRKx SNU7ZLTyfVUyE1PccF3mCoTw YCBiQZHvR7JfmALeMFufK774LG nyLxX7NTUeefNeW5LcWPBbiSmb JzX1l5G9Sa1QDDEeWY87UDW5 pUS5LP44HN67L9TaFyanoZXugL U+PHRhYmxlIHdpZHRoPScxMDAl CfHaiCffWI9bVs9rKSEpEPJf xGzypBMuPhUtn2qbRFZxFPdbDG 8hnTynS5WduER9MKRfs2m8Sz31 H62yF2HynFX+TUYdhRN3cPF5 jT7eCaBlHbL8QSczX636EsYveL NdQwppi4rgd6dktMm2JgQ9KUHq fnNgwLrlAUF3u6FbBc75A24t IHdpZHRoPSIxNSUiIHZhbGlnbj 7rxA8xBm9+VJTflOV4lAO3rW8o DxXzJhS7FVrfW429RvQbaBTs Pfhfa3syx7eyuRo6SmBqHXPjkl AlbGucHII6i4AtAp68L9YhtVpc y7EhRyv9vx05iDDdi1N8dHZ7 Z1CwKGXqbadhkMOhnRnxHM5sIS PzracqZKRgyE5pVOXbU0r5FfIr LbT6WEnmH2RgwtX0QGZmiWXj DXgkFNN7S38hl5R2NNRlNTWcHY Q3wWW5qY1dwQmaosybwFUerUsj qzCeqPtjMHweBIikB544XSWk xHreGUMhbG1eHSQfcVCfmLfwAL 1yYXEgyvigPdfEPy9IXhdlY3MT LH4bAWskzKR+OELgOFW8cZnc EFedBDIcmQ2vDLYeB1t1OsYoTa X9FPliK1AyZRPkeupcCw03nF5z MgHtQoE6EGewM4CfgcV2JYXr lTEmAQbfINV5G15gf3W6JMCjAV XsHOU2bLW6bU0zeGmlrsyogNPh yMqrotMkrWzePBqyXMzyT661 YHRtvGlpDpP3HjU7ShI3PQA9X8 EoBdb2WUXbjUdbXQ2dtTTzPVdh Mo4ewGnksGzpRW2nXLGdxdhk TGInxM5eVSZxkGDyoDsgXX1bCV Ctohflj716VlMjBPE4ILHqkYKo C3GhiK7bUmIgUPIjGKUaH5Pm pXBkKLhbH472TIjjEsM0ZZSlxl OmV0TvZIJssIntSuX4r2V7Jv65 NyBZZWFyczwvdGQ+PHRkIHN0 eZhbBFqbGYYbzY3jCRPnZ6z6Hb KkEaV0QVecV6XzGDBzumlzHq31 qY7iZzNdQsQ9VSdkB1MqbuI3 NNZziUAqGFpoHIX1N15xb4Z5CS MfOVFnVLU8mAT9yX4fzSddzrxn bGVmdDsgdmVydGljYWwtYWxp K625FMPzdKxjVoTTRXNXEAydjV Q+LKFsUXS5gNjsDSyhZODjiT6j OYUvX6e4MwRcLeZ4WCwuI1Jt TIYhnwcmFo62sT1wZpKaUiT1HZ msR0WljqN6RJXugAFlLQozXSA5 H38tg7K1RUBeXGJnCCL1sSV6 cU8isJzenmmzkMDqyZenrfUpzZ diHQfsHItrM624AIHghNqbDflb xVU0bWDblQpnfLM+ZB29mq51 I5MwQndqMjo1VREcFRV9mBQ3oJ 1sOXDpZIwem1S9dVM6V5XlmoXc td0yh8dwNZUjHMxaH27mtPGy x7V3WOAbuLS2GPUurPuwFsUqlN 93Oyc+HVDazVsvt4TwYburt6mk k9dtrHc6MaQsTSNmuxIbaWtu IUC2a4RaUg86P13xPJmdVCMmLR MvINFpTQKydLdrdd1mlG2nHl2+ PSVekGQ1yPD5lX3wElEzJwV4 YPliI523XjSuvJElGeqra9hft7 oimJs8MjOqMNTjbgJmuIvcMLS2 j1VoRl35W1QasOjor2RvAow5 eo03yTGbn7C3tHA1X2MuIZNtjc dkjEJuuThxVG4hPOSxuaysXOSk iX2yPLRiV2e7NjUxWcP3PHsx G2RkmcD3SCAwkYAlRJLerEAGoX 8xrndad5nveadkGtRyTZNbZSs1 GGt9LQYdhQteXgCxNED1DyY6 YMS9cIVmrD7htXeofhmxxD3iHa c+ZSf6y1tlbAKtSI6osVH4BP31 AW38sWLis5G2eVS3O8CfAFSz yfptwdwdoVT3IUXnUFYnfW42Yf 9egQteLb1cJYVuXSS2WOJprCSv K5VhpU0nXoMrQKGtUOHiV9Xb kEKnGJczT848MBprCcK7VHXbep HjB4UpCPIdeWkpXeS9l3K0Ht9J WH17KG64NK68zPYpp8G8jQV4 I6UxSKPwfpztuujufAH3APElHP IdqW35Tm0drXqtFa2eWGJeDLR7 QTVgqRZaZ9XlrD0aXqMoBMRl IFDzU3VyfLKgTCcnB031QUykAa C2LTIffxMmO6NjSAFzoFviEbI0 y8W4No7GEe35RU40YE09oEBg t4B0fWQ1G1ZfUVAwbsxrztpmmV M4VLVrWRBliU73My6atOckVs0j LEQeAVW1UJBejRElX6PngG6t ZkVqPZLvMLHjA9RvaPMrLEyxR8 28LCnsIgQ9PQQzkfYiY1EsTTQw rXwgXoW7g1P6Jl1ANMdxmui4 K5CiNgukhHB+MV17IGGyUK73wB MruIJfb2xnkIt6KxFpGOYhFAJ3 zSbhCNscb8FrTDQgK40jcQFj c2U (more content not included)... [facility] Outside Recordson 08-17-2021 Outside Records [id number][facility] 08-15-2021 Consent Forms [id number]#[facility] Pathology Sendout Teston Pathology Send Out. See Report [facility] Comment on above: Order Comment: PROCE DURE COLONOSCOPYSPECIMEN CECAL POLYP Performed By: #### 1 [id number] #### [facility] (DEFAULT) [address] [place] [address] Provider Orderson 08-15-2021 Provider Orders [id number]#[facility] Tele[facility] Stripson Telemetry Strips [id number][facility] Transfer Noteon 08-15-2021 Transfer Note [id number]#1.00[facility] .Auto Diff 1on 08-14-2021 Auto [place] % 7 % Normal 1-12 [facility] Comment on above: Performed By: #### 1 [id number], [id number] #### [facility] (DEFAULT) [address] [place] [address]1985 Baso Abs# 0.0 x10 Normal 0.0-0.2 [facility] Comment on above: Performed By: #### 1 [id number], [id number] #### [facility] (DEFAULT) [address] [place] [address]6210 Basophils/100 WBC (Bld) 1.0 % Normal 0.2-2.0 [facility] Comment on above: Performed By: #### 1 [id number], [id number], [id number] #### [facility] (DEFAULT) [address] [place] [address]74 Eos Abs# 0.1 x10 Normal 0.0-0.4 [facility] Comment on above: Performed By: #### 1 [id number], [id number], [id number] #### [facility] (DEFAULT) [address] [place] [address] 25517 Eosinophils/100 WBC (Bld) 2.9 % Normal 0.9-4.0 [facility] Comment on above: Performed By: #### 1 [id number], [id number], [id number] #### [facility] (DEFAULT) [address] [place] [address]6582 Lymph Abs# 1.5 x10 Normal 1.3-2.9 [facility] Comment on above: Performed By: #### 1 [id number], [id number], [id number] #### [facility] (DEFAULT) [address] [place] [address] Lymphocytes/100 WBC (Bld) 31 % Normal 14-48 [facility] Comment on above: Performed By: #### 1 [id number], [id number], [id number] #### [facility] (DEFAULT) [address] [place] [address] [place] Abs# 0.4 x10 Normal 0.0-0.8 [facility] Comment on above: Performed By: #### 1 [id number], [id number], [id number], [id number] #### [facility] (DEFAULT) [address] [place] [address] Neut Abs# 2.8 x10 Normal 1.5-9.2 [facility] Comment on above: Performed By: #### 1 [id number], [id number], [id number], [id number] #### [facility] (DEFAULT) [address] [place] [address] Neutrophils/100 WBC (Bld) 58 % Normal 44-88 [facility] Comment on above: Performed By: #### 1 [id number], [id number], [id number], [id number] #### [facility] (DEFAULT) [address] [place] [address] C. diff DNAon 08-14-2021 C. diff DNA Negative Normal Negative [facility] Comment on above: Performed By: #### 4 [id number] ####[facility] (DEFAULT)[address] [place] [address] Internal QC OK? Pass Normal [facility] Comment on above: Performed By: #### 4 [id number] ####[facility] (DEFAULT)[address] [place] [address] CBC w/ Auto Diffon Erythrocyte distribution width (RBC) [Ratio] 17.9 % High 11.5-15.0 [facility] Comment on above: Performed By: #### 1 [id number], [id number], [id number], [id number] #### [facility] (DEFAULT) [address] [place] [address]71 Hematocrit (Bld) [Volume fraction] 27.8 % Low 33.7-40.4 [facility] Comment on above: Performed By: #### 1 [id number], [id number], [id number], [id number] #### [facility] (DEFAULT) [address] [place] [address] 35825 Hemoglobin (Bld) [Mass/Vol] 8.1 g/dL Low 11.3-15.9 [facility] Comment on above: Performed By: #### 1 [id number], [id number], [id number], [id number] #### [facility] (DEFAULT) [address] [place] [address] Instr WBC 4.9 x10 Invalid Interpretation Code [facility] Comment on above: Performed By: #### 1 [id number], 6737866, 78479839, 3334502 #### [facility] (DEFAULT) [address] [place] [address] 30110 Man Diff? Auto Normal [facility] Comment on above: Performed By: #### 1 [id number], 8937530, 36085952, 9690055 #### [facility] (DEFAULT) [address] [place] [address] 40914 MCH (RBC) [Entitic mass] 27 pg Normal 24-34 [facility] Comment on above: Performed By: #### 1 [id number], 5045545, 06132224, 5630130 #### [facility] (DEFAULT) [address] [place] [address] 99903 MCHC (RBC) [Mass/Vol] 29 g/dL Normal 26-37 [facility] Comment on above: Performed By: #### 1 [id number], 2364033, 59398617, 4261860 #### [facility] (DEFAULT) [address] [place] [address] 45052 MCV (RBC) [Entitic vol] 94 fL Normal 81-100 [facility] Comment on above: Performed By: #### 1 [id number], 6399789, 82611633, 8563360 #### [facility] (DEFAULT) [address] [place] [address] 47155 Platelet 280 x10 Normal 138-427 [facility] Comment on above: Performed By: #### 1 [id number], 1663027, 45437370, 5709227 #### [facility] (DEFAULT) [address] [place] [address] 53017 Platelet mean volume (Bld) [Entitic vol] 9.3 fL Normal 6.3-10.2 [facility] Comment on above: Performed By: #### 1 [id number], 6428207, 18221284, 5924621 #### [facility] (DEFAULT) [address] [place] [address] RBC 2.96 x10 Low 3.70-5.30 [facility] Comment on above: Performed By: #### 1 [id number], 6424098, 74639353, 1848864 #### [facility] (DEFAULT) [address] [place] [address] WBC 4.9 x10 Normal 3.5-10.5 [facility] Comment on above: Performed By: #### 1 [id number], 2739893, 57917893, 7264175 #### [facility] (DEFAULT) [address] [place] [address] 27122 CMP Standardon 08-14-2021 eGFR Non AA >60 Invalid Interpretation Code [facility] Comment on above: Performed By: #### 1 [id number], 2991451, 76451886, 6620903 #### [facility] (DEFAULT) [address] [place] [address] eGFR AA >60 Invalid Interpretation Code [facility] Comment on above: Result Comment: Relief Cook juanito Kidney disease could be indicated at eGFRs of less than 60 ml/min/1.73m2. Kidney Failure is indicated at less than 15 ml/min/1.73m2 Performed By: #### 1 [id number], 7050182, 00353302, 3966680 #### [facility] (DEFAULT) [address] [place] [address] 94136 Albumin [Mass/Vol] 3.0 g/dL Low 3.5-5.0 [facility] Comment on above: Performed By: #### 1 [id number], 2185430, 17715585, 7499715 #### [facility] (DEFAULT) [address] [place] [address] Albumin/Globulin [Mass ratio] 1.8 {ratio} Normal 1.4-2.6 [facility] Comment on above: Performed By: #### 1 [id number], 2150960, 72862866, 2139332 #### [facility] (DEFAULT) [address] [place] [address] Alk Phos 35 IU/L Normal 32-91 [facility] Comment on above: Performed By: #### 1 [id number], 5284342, 70902186, 3242557 #### [facility] (DEFAULT) [address] [place] [address] ALT [Catalytic activity/Vol] 16.0 U/L Normal 14.0-54.0 [facility] Comment on above: Performed By: #### 1 [id number], 9440517, 15507549, 6088921 #### [facility] (DEFAULT) [address] [place] [address] Anion gap [Moles/Vol] 12.0 mmol/L Normal 5.0-19.0 [facility] Comment on above: Performed By: #### 1 [id number], 0922092, 99529737, 9064443 #### [facility] (DEFAULT) [address] [place] [address] AST [Catalytic activity/Vol] 24 U/L Normal 15-41 [facility] Comment on above: Performed By: #### 1 [id number], 4285091, 03609200, 7291299 #### [facility] (DEFAULT) [address] [place] [address] Bili Total 0.5 mg/dL Normal 0.3-1.2 [facility] Comment on above: Performed By: #### 1 [id number], 3981323, 12527394, 0473021 #### [facility] (DEFAULT) [address] [place] [address] 11645 Calcium [Mass/Vol] 7.4 mg/dL Low 8.9-10.3 [facility] Comment on above: Performed By: #### 1 [id number], 0703634, 21983354, 2523986 #### [facility] (DEFAULT) [address] [place] [address] 30164 Chloride [Moles/Vol] 108 mmol/L Normal 101-111 [facility] Comment on above: Performed By: #### 1 [id number], 1286130, 59834976, 8870064 #### [facility] (DEFAULT) [address] [place] [address] 28398 CO2 [Moles/Vol] 26 mmol/L Normal 21-32 [facility] Comment on above: Performed By: #### 1 [id number], 4288103, 47324494, 8240321 #### [facility] (DEFAULT) [address] [place] [address] 04537 Creatinine [Mass/Vol] 0.68 mg/dL Normal 0.60-1.30 [facility] Comment on above: Performed By: #### 1 [id number], 0508547, 31469057, 9445343 #### [facility] (DEFAULT) [address] [place] [address] 52842 Globulin (S) [Mass/Vol] 1.7 g/dL Normal 1.5-4.3 [facility] Comment on above: Performed By: #### 1 [id number], 7808975, 06019934, 3907858 #### [facility] (DEFAULT) [address] [place] [address] 29379 Glucose [Mass/Vol] 80.0 mg/dL Normal 74.0-118.0 [facility] Comment on above: Performed By: #### 1 [id number], 8199779, 58746282, 9436132 #### [facility] (DEFAULT) [address] [place] [address] 61697 Osmolality 279 mOsm/L Invalid Interpretation Code [facility] Comment on above: Performed By: #### 1 [id number], 3012815, 41735713, 0637448 #### [facility] (DEFAULT) [address] [place] [address] 78312 Potassium [Moles/Vol] 5.5 mmol/L High 3.6-5.1 [facility] Comment on above: Performed By: #### 1 [id number], 0901960, 52375690, 0735482 #### [facility] (DEFAULT) [address] [place] [address] 04807 Protein [Mass/Vol] 4.7 g/dL Low 6.5-8.1 [facility] Comment on above: Performed By: #### 1 [id number], 7474395, 13357310, 3046014 #### [facility] (DEFAULT) [address] [place] [address] 98223 Sodium [Moles/Vol] 140.0 mmol/L Normal 136.0-144.0 [facility] Comment on above: Performed By: #### 1 [id number], 0077542, 95907845, 1969966 #### [facility] (DEFAULT) [address] [place] [address] 13242 Urea nitrogen [Mass/Vol] 14 mg/dL Normal 8-26 [facility] Comment on above: Performed By: #### 1 [id number], 3124817, 63820908, 1039198 #### [facility] (DEFAULT) [address] [place] [address] 82966 Urea nitrogen/Creatinin e [Mass ratio] 21.0 mg/mg High 4.6-16.2 [facility] Comment on above: Performed By: #### 1 [id number], 6033656, 84509412, 2271909 #### [facility] (DEFAULT) [address] [place] [address] 47852 Inpatient Patient Summaryon 08-14-2021 Inpatient Patient Summary [address] [address] Patient Discharge Instructions Name: ASHVIN RENE : 1955 Patient Address: [address] [place] [address] Primary Care Provider: Name: RUSS CHRISTOPHER TUSHAR After you are discharged if you find you have any questions, please, call [phone] to speak to a nurse. [...] alcohol and/or drug addiction problems; contact the [facility] 03/02 Crisis Hotline -Text 4HOPE to 992101. If you received any narcotics, sedation, or [...] business decisions or sign any legal documents [facility] would like to thank you for allowing us to assist you with your healthcare needs. The following includes patient education materials and information regarding your injury/illness. ASHVIN RENE has been given the following list of follow-up instructions, prescriptions, and patient education materials: Follow-up Instructions With: Address: When: TUSHAR SOLANO JR. [address] [place] [address] Business (1) 08/21/2021 2:45 PM Medications During the course of your visit, your medication list was updated with the most current information. The details of those changes are reflected below: New Medications [facility], [address] [place] [address] [id number], [phone] ferrous sulfate (ferrous sulfate 325 mg (65 [...] IN MORNING MEAL, HOLD IF STANDING BP [id number]. Medications to Continue That Have Not Changed [...] mg oral tablet) potassium chloride (Potassium Chloride (Fqt-Pvyg-Pqf 10) 10 mEq oral tablet, extended release) [...] 250 mg oral (more content not included)... [facility] [id number] [facility] Noteon 08-14-2021 Pharmacy Note I have personally re viewed the patient's medication list upon discharge including, prescription medications, OTC products, vitamins and supplements. Below are the following medications the patient is discharged on. New Medications [facility], [address] [place] [address] [id number], [phone] ferrous sulfate (ferrous sulfate 325 mg (65 mg elemental iron) oral tablet) 1 tab(s) Oral 2 times a day for 30 Days. Refills: 1. torsemide (torsemide 20 mg oral tablet) 1 tab(s) Oral every other day for 30 Days. [facility] Refills: 1. Medications That Were Updated - Follow Below Instructions Other Medications Updated: fludrocortisone (fludrocortisone 0.1 mg oral tablet) 0.5 tab(s) Oral every day. TAKE IN MORNING MEAL, HOLD IF STANDING BP [id number]. Updated: midodrine (midodrine 10 mg oral tablet) [...] Oral every day. potassium chloride (Potassium Chloride (Nol-Muas-Pys 10) 10 mEq oral tablet, extended release) 1 tab(s) Oral 3 times a day. vancomycin (Firvanq 25 mg/mL oral liquid) 5 Milliliter Oral 4 times a day. [Electronically Signed on: 08/14/2021 15:17 EST] Nadia Devi [Verified on: 08/14/2021 15:17 EST] Nadia Devi Normal [facility] .Auto Diff 1on 08-13-2021 Auto [place] % 6 % Normal 12 [facility] Comment on above: Performed By: #### 1 [id number], 6632416, 27750453, 1264131 #### [facility] (DEFAULT) [address] [place] [address] 09323 Baso Abs# 0.0 x10 Normal 0.0-0.2 [facility] Comment on above: Performed By: #### 1 [id number], 4801447, 65020386, 2814896 #### [facility] (DEFAULT) [address] [place] [address] 12437 Basophils/100 WBC (Bld) 0.5 % Normal 0.2-2.0 [facility] Comment on above: Performed By: #### 1 [id number], 6720314, 57467996, 4492469 #### [facility] (DEFAULT) [address] [place] [address] 27398 Eos Abs# 0.1 x10 Normal 0.0-0.4 [facility] Comment on above: Performed By: #### 1 [id number], 5885351, 39259834, 0701884 #### [facility] (DEFAULT) [address] [place] [address] 95296 Eosinophils/100 WBC (Bld) 1.7 % Normal 0.9-4.0 [facility] Comment on above: Performed By: #### 1 [id number], 7081464, 51589469, 0107941 #### [facility] (DEFAULT) [address] [place] [address] 12251 Lymph Abs# 1.4 x10 Normal 1.3-2.9 [facility] Comment on above: Performed By: #### 1 [id number], 1753838, 16997687, 3771543 #### [facility] (DEFAULT) [address] [place] [address] 67630 Lymphocytes/100 WBC (Bld) 21 % Normal 14-48 [facility] Comment on above: Performed By: #### 1 [id number], 4429757, 39275583, 4780139 #### [facility] (DEFAULT) [address] [place] [address] 12677 [place] Abs# 0.4 x10 Normal 0.0-0.8 [facility] Comment on above: Performed By: #### 1 [id number], 0921848, 58733073, 2373904 #### [facility] (DEFAULT) [address] [place] [address] 42556 Neut Abs# 4.5 x10 Normal 1.5-9.2 [facility] Comment on above: Performed By: #### 1 [id number], 4085558, 04031428, 9213981 #### [facility] (DEFAULT) [address] [place] [address] Neutrophils/100 WBC (Bld) 71 % Normal 44-88 [facility] Comment on above: Performed By: #### 1 [id number], 7420952, 74753684, 1038605 #### [facility] (DEFAULT) [address] [place] [address] ABORhon 08-13-2021 ABO and Rh group Nom (Bld) Placed by Discern Expert due to BBPR being ordered. Hx Check: Found Anti-A: 0 Anti-B: 0 Anti-D: 4+ DCon: NT A1: 4+ B: 4+ ABORh Interp: O POS Invalid Interpretation Code [facility] Comment on above: Performed By: #### 1 [id number], 0477332, 26613129, 8312868 #### [facility] (DEFAULT) [address] [place] [address] ABSC Gelon 08-13-2021 ABSC Gel Placed by Discern Ex pert due to BBPR being ordered. SC1 Gel: 0 SC2 Gel: 0 SC3 Gel: 0 ABSC Gel Interp: Negative Normal [facility] Comment on above: Performed By: #### 1 [id number], 3391421, 74269133, 3155485 #### [facility] (DEFAULT) [address] [place] [address] BMP Standardon 08-13-2021 Anion gap [Moles/Vol] 13.0 mmol/L Normal 5.0-19.0 [facility] Comment on above: Performed By: #### 1 [id number], 9599436, 30733492, 9361411 #### [facility] (DEFAULT) [address] [place] [address] 14443 Calcium [Mass/Vol] 6.8 mg/dL Low 8.9-10.3 [facility] Comment on above: Performed By: #### 1 [id number], 7044363, 35509638, 3156882 #### [facility] (DEFAULT) [address] [place] [address] 32301 Chloride [Moles/Vol] 106 mmol/L Normal 101-111 [facility] Comment on above: Performed By: #### 1 [id number], 8852139, 38796149, 6336155 #### [facility] (DEFAULT) [address] [place] [address] 23256 CO2 [Moles/Vol] 24 mmol/L Normal 21-32 [facility] Comment on above: Performed By: #### 1 [id number], 2337204, 84520772, 3190316 #### [facility] (DEFAULT) [address] [place] [address] 07282 Creatinine [Mass/Vol] 0.65 mg/dL Normal 0.60-1.30 [facility] Comment on above: Performed By: #### 1 163450579, 9196519, 45888444, 7417832 #### [facility] (DEFAULT) [address] [place] [address] 00511 Glucose [Mass/Vol] 108.0 mg/dL Normal 74.0-118.0 [facility] Comment on above: Performed By: #### 1 145840252, 3703375, 78631434, 4950662 #### [facility] (DEFAULT) [address] [place] [address] 80521 Osmolality 275 mOsm/L Invalid Interpretation Code [facility] Comment on above: Performed By: #### 1 [id number], 6630114, 02938881, 1450243 #### [facility] (DEFAULT) [address] [place] [address] 72466 Potassium [Moles/Vol] 5.0 mmol/L Normal 3.6-5.1 [facility] Comment on above: Result Comment: Pota ssium medication/therapy Performed By: #### 1 907677706, 0756015, 12038511, 1474393 #### [facility] (DEFAULT) [address] [place] [address] Sodium [Moles/Vol] 138.0 mmol/L Normal 136.0-144.0 [facility] Comment on above: Performed By: #### 1 [id number], 6316182, 97815597, 3135493 #### [facility] (DEFAULT) [address] [place] [address] Urea nitrogen [Mass/Vol] 10 mg/dL Normal 8-26 [facility] Comment on above: Performed By: #### 1 739346577, 7416020, 53697453, 0093174 #### [facility] (DEFAULT) [address] [place] [address] Urea nitrogen/Creatinin e [Mass ratio] 15.0 mg/mg Normal 4.6-16.2 [facility] Comment on above: Performed By: #### 1 [id number], 9104620, 05633159, 4914780 #### [facility] (DEFAULT) [address] [place] [address] eGFR Non AA >60 Invalid Interpretation Code [facility] Comment on above: Performed By: #### 1 [id number], 1095027, 72186713, 6420402 #### [facility] (DEFAULT) [address] [place] [address] eGFR AA >60 Invalid Interpretation Code [facility] Comment on above: Result Comment: Relief Cook juanito Kidney disease could be indicated at eGFRs of less than 60 ml/min/1.73m2. Kidney Failure is indicated at less than 15 ml/min/1.73m2 Performed By: #### 1 [id number], 7858384, 38168061, 1331623 #### [facility] (DEFAULT) [address] [place] [address] CBC w/ Auto Diffon 2 Erythrocyte distribution width (RBC) [Ratio] 17.8 % High 11.5-15.0 [facility] Comment on above: Performed By: #### 1 747553692, 4914190, 45797748, 5822297 #### [facility] (DEFAULT) [address] [place] [address] 66039 Hematocrit (Bld) [Volume fraction] 26.7 % Low 33.7-40.4 [facility] Comment on above: Performed By: #### 1 010522339, 2993607, 26519274, 4297061 #### [facility] (DEFAULT) [address] [place] [address] 41786 Hemoglobin (Bld) [Mass/Vol] 7.8 g/dL Low 11.3-15.9 [facility] Comment on above: Performed By: #### 1 917104006, 9255623, 26685933, 4430782 #### [facility] (DEFAULT) [address] [place] [address] Instr WBC 6.4 x10 Invalid Interpretation Code [facility] Comment on above: Performed By: #### 1 [id number], 4597522, 42992765, 4013766 #### [facility] (DEFAULT) [address] [place] [address] 20436 Man Diff? Auto Normal [facility] Comment on above: Performed By: #### 1 537376859, 5491781, 54486384, 7292737 #### [facility] (DEFAULT) [address] [place] [address] 80403 MCH (RBC) [Entitic mass] 27 pg Normal 24-34 [facility] Comment on above: Performed By: #### 1 [id number], 0071714, 54614743, 3236848 #### [facility] (DEFAULT) [address] [place] [address] 71037 MCHC (RBC) [Mass/Vol] 29 g/dL Normal 26-37 [facility] Comment on above: Performed By: #### 1 263961488, 1662435, 62808974, 4805866 #### [facility] (DEFAULT) [address] [place] [address] 16480 MCV (RBC) [Entitic vol] 94 fL Normal 81-100 [facility] Comment on above: Performed By: #### 1 424073439, 8088940, 13643023, 4774826 #### [facility] (DEFAULT) [address] [place] [address] Platelet 309 x10 Normal 138-427 [facility] Comment on above: Performed By: #### 1 243718679, 8217825, 05612393, 1679029 #### [facility] (DEFAULT) [address] [place] [address] Platelet mean volume (Bld) [Entitic vol] 9.2 fL Normal 6.3-10.2 [facility] Comment on above: Performed By: #### 1 931061479, 1084980, 21811250, 3974761 #### [facility] (DEFAULT) [address] [place] [address] RBC 2.85 x10 Low 3.70-5.30 [facility] Comment on above: Performed By: #### 1 913033336, 8208824, 19536571, 3484617 #### [facility] (DEFAULT) [address] [place] [address] WBC 6.4 x10 Normal 3.5-10.5 [facility] Comment on above: Performed By: #### 1 405135034, 3717498, 30806141, 9035349 #### [facility] (DEFAULT) [address] [place] [address] H&Hon 08-13-2021 Hematocrit (Bld) [Volume fraction] 29.9 % Low 33.7-40.4 [facility] Comment on above: Performed By: #### 1 [id number], 8693363, 14227868, 4321026 #### [facility] (DEFAULT) [address] [place] [address] Hemoglobin (Bld) [Mass/Vol] 8.7 g/dL Low 11.3-15.9 [facility] Comment on above: Performed By: #### 1 754537761, 4834613, 59443301, 2289427 #### [facility] (DEFAULT) [address] [place] [address] Magnesiumon 08-13-2021 Magnesium [Mass/Vol] 2.07 mg/dL Normal 1.80-2.50 [facility] Comment on above: Performed By: #### 1 780644368, 8809721, 23852933, 0929871 #### [facility] (DEFAULT) [address] [place] [address] 13232 Nutrition Noteon 08-13-2021 Nutrition Note 08/12 wt 60.1kg, questionable 12kg loss from admit wt at 72kg. Pt did received lasix, IV alb with improvement noted in LE edema, however, still question loss of 26lb in less than 1wk. Alb back at 3.3, stable. H/H also on recheck, stable. Intake avg 25-50%. Per rounds, if hgb remains stable, Pt to be discharged back to [facility]. If discharge plans change, will re-add supplements. Will request re-weight in am. [facility] RBC.on 08-13-2021 RBC. # of Units: 1 RBC Indication: Symptom Anemia Additional Units?: No Date Needed: 08/13/2021 Red Cell Status: RBC Ready [facility] Comment on above: Performed By: #### 1 [id number], 1653182, 58242630, 9353142 #### [facility] (DEFAULT) [address] [place], [place] [address] Telemetry Stripson 2 Telemetry Strips [id number] [facility] .Auto Diff 1on 08-12-2021 Auto [place] % 8 % Normal 07-25 [facility] Comment on above: Performed By: #### 7 581345, 24170292, 3890249, 7316153921 #### [facility] (DEFAULT) [address] [place] [address] 01173 Baso Abs# 0.0 x10 Normal 0.0-0.2 [facility] Comment on above: Performed By: #### 7 109015, 42332737, 7748210, 3922904527 #### [facility] (DEFAULT) [address] [place] [address] 00674 Basophils/100 WBC (Bld) 0.7 % Normal 0.2-2.0 [facility] Comment on above: Performed By: #### 7 748395, 30829401, 5151186, 3258857908 #### [facility] (DEFAULT) [address] [place] [address] 69993 Eos Abs# 0.1 x10 Normal 0.0-0.4 [facility] Comment on above: Performed By: #### 7 859691, 59235217, 6053266, 5610015050 #### [facility] (DEFAULT) [address] [place] [address] 18411 Eosinophils/100 WBC (Bld) 1.8 % Normal 0.9-4.0 [facility] Comment on above: Performed By: #### 7 561176, 68366222, 2599042, 1318894251 #### [facility] (DEFAULT) [address] [place] [address] 23227 Lymph Abs# 1.6 x10 Normal 1.3-2.9 [facility] Comment on above: Performed By: #### 7 454260, 65486649, 4165820, 3226654451 #### [facility] (DEFAULT) [address] [place] [address] 33485 Lymphocytes/100 WBC (Bld) 30 % Normal 14-48 [facility] Comment on above: Performed By: #### 7 722260, 18708739, 9379875, 7521895113 #### [facility] (DEFAULT) [address] [place] [address] 34113 [place] Abs# 0.4 x10 Normal 0.0-0.8 [facility] Comment on above: Performed By: #### 7 235909, 72059491, 4855254, 2024001487 #### [facility] (DEFAULT) [address] [place] [address] 99122 Neut Abs# 3.2 x10 Normal 1.5-9.2 [facility] Comment on above: Performed By: #### 7 876397, 64397959, 0825662, 1723485643 #### [facility] (DEFAULT) [address] [place] [address] 74814 Neutrophils/100 WBC (Bld) 60 % Normal 44-88 [facility] Comment on above: Performed By: #### 7 724317, 79408494, 8477371, 7924412820 #### [facility] (DEFAULT) [address] [place] [address] CBC w/ Auto Diffon 2 Erythrocyte distribution width (RBC) [Ratio] 17.9 % High 11.5-15.0 [facility] Comment on above: Performed By: #### 7 887466, 11643420, 8805602, 0495825920 #### [facility] (DEFAULT) [address] [place] [address] Hematocrit (Bld) [Volume fraction] 28.6 % Low 33.7-40.4 [facility] Comment on above: Performed By: #### 7 776808, 29141886, 7448072, 8211060236 #### [facility] (DEFAULT) [address] [place] [address] Hemoglobin (Bld) [Mass/Vol] 8.5 g/dL Low 11.3-15.9 [facility] Comment on above: Performed By: #### 7 101671, 42934417, 6467554, 6098981438 #### [facility] (DEFAULT) [address] [place] [address] Instr WBC 5.4 x10 Invalid Interpretation Code [facility] Comment on above: Performed By: #### 7 964759, 93796911, 7846676, 2179427959 #### [facility] (DEFAULT) [address] [place] [address] Man Diff? Auto Normal [facility] Comment on above: Performed By: #### 7 471142, 35405838, 6312316, 9170839721 #### [facility] (DEFAULT) [address] [place] [address] MCH (RBC) [Entitic mass] 28 pg Normal 24-34 [facility] Comment on above: Performed By: #### 7 252943, 41539490, 5717398, 6758958746 #### [facility] (DEFAULT) [address] [place] [address] MCHC (RBC) [Mass/Vol] 30 g/dL Normal 26-37 [facility] Comment on above: Performed By: #### 7 696264, 68449983, 1233566, 5281923867 #### [facility] (DEFAULT) [address] [place] [address] MCV (RBC) [Entitic vol] 94 fL Normal 81-100 [facility] Comment on above: Performed By: #### 7 360834, 57230283, 0720682, 5827904639 #### [facility] (DEFAULT) [address] [place] [address] Platelet 305 x10 Normal 138-427 [facility] Comment on above: Performed By: #### 7 771896, 22966122, 0185163, 4957061177 #### [facility] (DEFAULT) [address] [place] [address] Platelet mean volume (Bld) [Entitic vol] 9.8 fL Normal 6.3-10.2 [facility] Comment on above: Performed By: #### 7 159182, 77626421, 0073874, 1945364224 #### [facility] (DEFAULT) [address] [place] [address] RBC 3.03 x10 Low 3.70-5.30 [facility] Comment on above: Performed By: #### 7 529129, 70083120, 3747770, 4299561008 #### [facility] (DEFAULT) [address] [place] [address] WBC 5.4 x10 Normal 3.5-10.5 [facility] Comment on above: Performed By: #### 7 593464, 48689621, 7978331, 4786290527 #### [facility] (DEFAULT) [address] [place] [address] CMP Standardon 08-12-2021 Albumin [Mass/Vol] 3.3 g/dL Low 3.5-5.0 [facility] Comment on above: Performed By: #### 7 774588, 87209476, 3040349, 2121886552 ####[facility] (DEFAULT)[address] [place] [address] Albumin/Globulin [Mass ratio] 2.4 {ratio} Normal 1.4-2.6 [facility] Comment on above: Performed By: #### 7 511803, 78494942, 2534072, 4667809230 ####[facility] (DEFAULT)[address] [place] [address] Alk Phos 28 IU/L Low 32-91 [facility] Comment on above: Performed By: #### 7 862991, 07534983, 1825948, 5936764889 ####[facility] (DEFAULT)[address] [place] [address] ALT [Catalytic activity/Vol] 14.0 U/L Normal 14.0-54.0 [facility] Comment on above: Performed By: #### 7 311344, 48818692, 0995318, 1286712324 ####[facility] (DEFAULT)[address] [place] [address] Anion gap [Moles/Vol] 15.0 mmol/L Normal 5.0-19.0 [facility] Comment on above: Performed By: #### 7 735491, 46812859, 4433941, 4027164655 ####[facility] (DEFAULT)[address] [place] [address] AST [Catalytic activity/Vol] 27 U/L Normal 15-41 [facility] Comment on above: Performed By: #### 7 325648, 54209516, 5343640, 9142854121 ####[facility] (DEFAULT)[address] [place] [address] 38818 Bili Total 0.5 mg/dL Normal 0.3-1.2 [facility] Comment on above: Performed By: #### 7 371862, 16217048, 1343605, 1573327733 ####[facility] (DEFAULT)[address] [place] [address] Calcium [Mass/Vol] 6.7 mg/dL Low 8.9-10.3 [facility] Comment on above: Performed By: #### 7 847555, 75347129, 1342188, 5688175877 ####[facility] (DEFAULT)[address] [place] [address] 28216 Chloride [Moles/Vol] 103 mmol/L Normal 101-111 [facility] Comment on above: Performed By: #### 7 021643, 05936520, 3208710, 1920087604 ####[facility] (DEFAULT)[address] [place] [address] 31115 CO2 [Moles/Vol] 27 mmol/L Normal 21-32 [facility] Comment on above: Performed By: #### 7 010979, 10960330, 1809315, 6639057478 ####[facility] (DEFAULT)[address] [place] [address] 83233 Creatinine [Mass/Vol] 0.68 mg/dL Normal 0.60-1.30 [facility] Comment on above: Performed By: #### 7 742331, 18033067, 8052481, 7122792545 ####[facility] (DEFAULT)[address] [place] [address] 73104 Globulin (S) [Mass/Vol] 1.4 g/dL Low 1.5-4.3 [facility] Comment on above: Performed By: #### 7 862582, 62865640, 3837528, 3905447011 ####[facility] (DEFAULT)[address] [place] [address] 05691 Glucose [Mass/Vol] 76.0 mg/dL Normal 74.0-118.0 [facility] Comment on above: Performed By: #### 7 475381, 56724684, 9294007, 8210393864 ####[facility] (DEFAULT)[address] [place] [address] 71855 Osmolality 278 mOsm/L Invalid Interpretation Code [facility] Comment on above: Performed By: #### 7 032780, 88264675, 1767457, 1567809351 ####[facility] (DEFAULT)[address] [place] [address] 60203 Potassium [Moles/Vol] 4.3 mmol/L Normal 3.6-5.1 [facility] Comment on above: Result Comment: IV T herapy Performed By: #### 7 184709, 37220400, 0607503, 7838350014 ####[facility] (DEFAULT)[address] [place] [address] 48328 Protein [Mass/Vol] 4.7 g/dL Low 6.5-8.1 [facility] Comment on above: Performed By: #### 7 259113, 22045811, 4769263, 6010779959 ####[facility] (DEFAULT)[address] [place] [address] 06957 Sodium [Moles/Vol] 141.0 mmol/L Normal 136.0-144.0 [facility] Comment on above: Performed By: #### 7 984532, 77978002, 1236559, 9158563101 ####[facility] (DEFAULT)[address] [place] [address] Urea nitrogen [Mass/Vol] 8 mg/dL Normal 8-26 [facility] Comment on above: Performed By: #### 7 848707, 52099591, 4257473, 4345265836 ####[facility] (DEFAULT)[address] [place] [address] 30310 Urea nitrogen/Creatinin e [Mass ratio] 12.0 mg/mg Normal 4.6-16.2 [facility] Comment on above: Performed By: #### 7 219654, 86516994, 4946590, 0943489118 ####[facility] (DEFAULT)[address] [place] [address] 36125 eGFR Non AA >60 Invalid Interpretation Code [facility] Comment on above: Performed By: #### 7 031154, 84196255, 7717979, 0278876893 ####[facility] (DEFAULT)[address] [place] [address] 31848 eGFR AA >60 Invalid Interpretation Code [facility] Comment on above: Result Comment: Relief Cook juanito Kidney disease could be indicated at eGFRs of less than 60 ml/min/1.73m2. Kidney Failure is indicated at less than 15 ml/min/1.73m2 Performed By: #### 7 822259, 42896096, 6232330, 3825714578 ####[facility] (DEFAULT)[address] [place] [address] Magnesiumon 08-12-2021 Magnesium [Mass/Vol] 1.21 mg/dL Low 1.80-2.50 [facility] Comment on above: Performed By: #### 7 289830, 86879076, 1135162, 4481150507 #### [facility] (DEFAULT) [address] [place] [address] .Auto Diff 1on 08-11-2021 Auto [place] % 8 % Normal 1-12 [facility] Comment on above: Performed By: #### 2 424949, 9693677855, 4924256, 70413768 ####[facility] (DEFAULT)[address] [place] [address] Baso Abs# 0.0 x10 Normal 0.0-0.2 [facility] Comment on above: Performed By: #### 2 581606, 0393438782, 8621243, 63470720 ####[facility] (DEFAULT)[address] [place] [address] Basophils/100 WBC (Bld) 0.6 % Normal 0.2-2.0 [facility] Comment on above: Performed By: #### 2 982297, 4094834272, 5965001, 04520153 ####[facility] (DEFAULT)[address] [place] [address] Eos Abs# 0.2 x10 Normal 0.0-0.4 [facility] Comment on above: Performed By: #### 2 416248, 7441669549, 5892169, 74639930 ####[facility] (DEFAULT)[address] [place] [address] Eosinophils/100 WBC (Bld) 3.1 % Normal 0.9-4.0 [facility] Comment on above: Performed By: #### 2 211233, 1956934407, 1188374, 88615876 ####[facility] (DEFAULT)[address] [place] [address] Lymph Abs# 1.4 x10 Normal 1.3-2.9 [facility] Comment on above: Performed By: #### 2 393879, 8015214180, 4298451, 58093600 ####[facility] (DEFAULT)[address] [place] [address] Lymphocytes/100 WBC (Bld) 28 % Normal 14-48 [facility] Comment on above: Performed By: #### 2 493715, 7505449309, 0284610, 78563002 ####[facility] (DEFAULT)[address] [place] [address] [place] Abs# 0.4 x10 Normal 0.0-0.8 [facility] Comment on above: Performed By: #### 2 272258, 2490243654, 4335865, 58384606 ####[facility] (DEFAULT)[address] [place] [address] Neut Abs# 3.2 x10 Normal 1.5-9.2 [facility] Comment on above: Performed By: #### 2 059289, 1048697748, 6989778, 92355363 ####[facility] (DEFAULT)[address] [place] [address] Neutrophils/100 WBC (Bld) 61 % Normal 44-88 [facility] Comment on above: Performed By: #### 2 618665, 6785614656, 4074296, 62113550 ####[facility] (DEFAULT)[address] [place] [address] Standardon 08-11-2021 eGFR Non AA >60 Invalid Interpretation Code [facility] Comment on above: Performed By: #### 2 511233, 2969874115, 7084154, 67489839 ####[facility] (DEFAULT)[address] [place] [address] eGFR AA >60 Invalid Interpretation Code [facility] Comment on above: Result Comment: Relief Cook juanito Kidney disease could be indicated at eGFRs of less than 60 ml/min/1.73m2. Kidney Failure is indicated at less than 15 ml/min/1.73m2 Performed By: #### 2 [id number], [id number], [id number], [id number] ####[facility] (DEFAULT)[address] [place] [address]3458 Anion gap [Moles/Vol] 17.0 mmol/L Normal 5.0-19.0 [facility] Comment on above: Performed By: #### 2 [id number], [id number], [id number], [id number] ####[facility] (DEFAULT)[address] [place] [address] 83432 Calcium [Mass/Vol] 6.7 mg/dL Low 8.9-10.3 [facility] Comment on above: Performed By: #### 2 [id number], [id number], [id number], [id number] ####[facility] (DEFAULT)[address] [place] [address] 34533 Chloride [Moles/Vol] 104 mmol/L Normal 101-111 [facility] Comment on above: Performed By: #### 2 [id number], [id number], [id number], [id number] ####[facility] (DEFAULT)[address] [place] [address] 73554 CO2 [Moles/Vol] 24 mmol/L Normal 21-32 [facility] Comment on above: Performed By: #### 2 [id number], [id number], [id number], [id number] ####[facility] (DEFAULT)[address] [place] [address] 90372 Creatinine [Mass/Vol] 0.57 mg/dL Low 0.60-1.30 [facility] Comment on above: Performed By: #### 2 [id number], [id number], [id number], [id number] ####[facility] (DEFAULT)[address] [place] [address] 91125 Glucose [Mass/Vol] 81.0 mg/dL Normal 74.0-118.0 [facility] Comment on above: Performed By: #### 2 [id number], [id number], 9381446, [id number] ####[facility] (DEFAULT)[address] [place] [address] 63172 Osmolality 278 mOsm/L Invalid Interpretation Code [facility] Comment on above: Performed By: #### 2 [id number], [id number], [id number], [id number] ####[facility] (DEFAULT)[address] [place] [address] 81905 Potassium [Moles/Vol] 3.6 mmol/L Normal 3.6-5.1 [facility] Comment on above: Performed By: #### 2 962683, [id number], [id number], [id number] ####[facility] (DEFAULT)[address] [place] [address] 55327 Sodium [Moles/Vol] 141.0 mmol/L Normal 136.0-144.0 [facility] Comment on above: Performed By: #### 2 [id number], [id number], 1683409, 12627015 ####[facility] (DEFAULT)[address] [place] [address] Urea nitrogen [Mass/Vol] 6 mg/dL Low 8-26 [facility] Comment on above: Performed By: #### 2 300772, 4861825188, 7456530, 69507879 ####[facility] (DEFAULT)[address] [place] [address] Urea nitrogen/Creatinin e [Mass ratio] 11.0 mg/mg Normal 4.6-16.2 [facility] Comment on above: Performed By: #### 2 967139, 2821109723, 9793594, 55662385 ####[facility] (DEFAULT)[address] [place] [address] 21232 CBC w/ Auto Diffon 2 Erythrocyte distribution width (RBC) [Ratio] 17.9 % High 11.5-15.0 [facility] Comment on above: Performed By: #### 2 020219, 5473552643, 9531696, 40360436 ####[facility] (DEFAULT)[address] [place] [address] Hematocrit (Bld) [Volume fraction] 26.2 % Low 33.7-40.4 [facility] Comment on above: Performed By: #### 2 560923, 8905921503, 7384432, 11303628 ####[facility] (DEFAULT)[address] [place], [place] [address] Hemoglobin (Bld) [Mass/Vol] 7.8 g/dL Low 11.3-15.9 [facility] Comment on above: Performed By: #### 2 517189, 9630878046, 7155210, 52005962 ####[facility] (DEFAULT)[address] [place] [address] Instr WBC 5.2 x10 Invalid Interpretation Code [facility] Comment on above: Performed By: #### 2 480302, 6101843708, 2738646, 47289512 ####[facility] (DEFAULT)[address] [place] [address] Man Diff? Auto Normal [facility] Comment on above: Performed By: #### 2 864736, 6449064674, 7607374, 53691812 ####[facility] (DEFAULT)[address] [place] [address] 12128 MCH (RBC) [Entitic mass] 28 pg Normal 24-34 [facility] Comment on above: Performed By: #### 2 629689, 2721572150, 8053863, 44954891 ####[facility] (DEFAULT)[address] [place] [address] MCHC (RBC) [Mass/Vol] 30 g/dL Normal 26-37 [facility] Comment on above: Performed By: #### 2 556698, 9187648118, 3525616, 15335216 ####[facility] (DEFAULT)[address] [place] [address] 80874 MCV (RBC) [Entitic vol] 93 fL Normal 81-100 [facility] Comment on above: Performed By: #### 2 728400, 3157835046, 7175723, 95116013 ####[facility] (DEFAULT)[address] [place] [address] 26240 Platelet 291 x10 Normal 138-427 [facility] Comment on above: Performed By: #### 2 502838, 1075730909, 4737601, 84270167 ####[facility] (DEFAULT)[address] [place] [address] 47563 Platelet mean volume (Bld) [Entitic vol] 9.6 fL Normal 6.3-10.2 [facility] Comment on above: Performed By: #### 2 473729, 2166704346, 9771744, 60397224 ####[facility] (DEFAULT)[address] [place] [address] RBC 2.82 x10 Low 3.70-5.30 [facility] Comment on above: Performed By: #### 2 390082, 3288223577, 2154032, 70202946 ####[facility] (DEFAULT)[address] [place] [address] WBC 5.2 x10 Normal 3.5-10.5 [facility] Comment on above: Performed By: #### 2 342274, 9640094966, 0168665, 39368185 ####[facility] (DEFAULT)[address] [place] [address] Magnesiumon 08-11-2021 Magnesium [Mass/Vol] 1.43 mg/dL Low 1.80-2.50 [facility] Comment on above: Performed By: #### 2 788849, 3478673414, 1563327, 55303030 ####[facility] (DEFAULT)[address] [place] [address] PTH, Intact LCon 08-11-2021 PTH, Intact LC 125 pg/mL High 15-65 [facility] Comment on above: Result Comment: Perf ormed At: [facility] [address] [id number] Brenna Iyer PhD Ph:[phone] Performed By: #### 2 [id number], 57484154 ####[facility] (DEFAULT)[address] [place] [address] .Auto Diff 1on 08-10-2021 Auto Han[place] % 8 % Normal 1-12 [facility] Comment on above: Performed By: #### 1 398116264, 4057001919, 3062983, 72253688, 3561563, 7605836482 ####[facility] (DEFAULT)[address] [place] [address] Baso Abs# 0.0 x10 Normal 0.0-0.2 [facility] Comment on above: Performed By: #### 1 971902829, 7340336363, 1750877, 14574225, 2834442, 0975867058 ####[facility] (DEFAULT)[address] [place] [address] 35371 Basophils/100 WBC (Bld) 0.8 % Normal 0.2-2.0 [facility] Comment on above: Performed By: #### 1 441602546, 7883090119, 4738714, 05886374, 4299724, 6698863438 ####[facility] (DEFAULT)[address] [place] [address] 14139 Eos Abs# 0.2 x10 Normal 0.0-0.4 [facility] Comment on above: Performed By: #### 1 858738594, 8564035894, 9706112, 87194185, 0237431, 7441544017 ####[facility] (DEFAULT)[address] [place] [address] 34729 Eosinophils/100 WBC (Bld) 3.3 % Normal 0.9-4.0 [facility] Comment on above: Performed By: #### 1 036602184, 9414965283, 5189568, 08363481, 0255138, 7327221077 ####[facility] (DEFAULT)[address] [place] [address] 50980 Lymph Abs# 1.2 x10 Low 1.3-2.9 [facility] Comment on above: Performed By: #### 1 720955008, 4426979561, 7627700, 82202433, 1621946, 0146864017 ####[facility] (DEFAULT)[address] [place] [address] 25113 Lymphocytes/100 WBC (Bld) 24 % Normal 14-48 [facility] Comment on above: Performed By: #### 1 939923935, 7103317239, 6452440, 75435229, 3976090, 7377064196 ####[facility] (DEFAULT)[address] [place] [address] [place] Abs# 0.4 x10 Normal 0.0-0.8 [facility] Comment on above: Performed By: #### 1 864877918, 6985848352, 5552956, 82086099, 9885223, 0178231301 ####[facility] (DEFAULT)[address] [place] [address] Neut Abs# 3.1 x10 Normal 1.5-9.2 [facility] Comment on above: Performed By: #### 1 592282995, 0600350709, 8016532, 01297335, 8686575, 0463844380 ####[facility] (DEFAULT)[address] [place] [address] Neutrophils/100 WBC (Bld) 64 % Normal 44-88 [facility] Comment on above: Performed By: #### 1 613206432, 1401788246, 0209702, 69167313, 7589315, 7140076660 ####[facility] (DEFAULT)[address] [place] [address] Anesthesia Noteon 08-10-2021 Anesthesia Note Patient: SUSAN [...] on: 08/10/2021 10:12 EST] Rony Ordonez MD [facility] Anesthesia Note Patient: SUSAN RENE Age: [...] on: 08/10/2021 10:00 EST] Rony Ordonez MD [facility] Anesthesia Note Patient: SUSAN RENE Age: 65 years Sex: FEMALE : 1955 Associated Diagnoses: None Author: Rony Ordonez MD Preoperative Information Anesthesia history: Patient history: No difficult intubation, No malignant hyperthermia. Family history: No malignant hyperthermia. Review of Systems Respiratory: recent COVID positive but no symptoms at present pulmonary payne, No shortness of breath, No apnea. 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 Hysterectomy (205865533). Social History Electronic Cigarette/Vaping Assessment Electronic Cigarette [...] % Auto Lymph % 24 % Auto Han[place] % 8 % Auto Eos % 3.3 % Auto Baso % 0.8 % Neut Abs# 3.1 x103/mcL Lymph Abs# 1.2 x103/mcL LOW [place] Abs# 0.4 x103/mcL Eos Abs# 0.2 x103/mcL Baso Abs# 0.0 x103/mcL Sodium Level 142.0 mmol/L Potassium Level 3.8 mmol/L Chloride Level 105 mmol/L CO2 25 mmol/L Anion Gap 16.0 mmol/L Glucose Level 74.0 mg/dL BUN 6 mg/dL LOW Creatinine Level 0.64 mg/dL BUN/Creat Ratio 9.0 eGFR AA >60 mL/min/1.73m2 NA eGFR Non A (more content not included)... Normal [facility] CBC w/ Auto Diffon 2 Erythrocyte distribution width (RBC) [Ratio] 18.0 % High 11.5-15.0 [facility] Comment on above: Performed By: #### 1 840769816, 9736629990, 4151769, 47884988, 4362835, 6607088556 ####[facility] (DEFAULT)[address] [place] [address] 36882 Hematocrit (Bld) [Volume fraction] 25.6 % Low 33.7-40.4 [facility] Comment on above: Performed By: #### 1 977481160, 3184056513, 4870732, 31686455, 9957179, 3114191566 ####[facility] (DEFAULT)[address] [place] [address] 86556 Hemoglobin (Bld) [Mass/Vol] 7.6 g/dL Low 11.3-15.9 [facility] Comment on above: Performed By: #### 1 441880875, 7444818967, 0485663, 16439896, 6995980, 4841435831 ####[facility] (DEFAULT)[address] [place] [address] Instr WBC 4.9 x10 Invalid Interpretation Code [facility] Comment on above: Performed By: #### 1 309104188, 6377870967, 0122956, 55303924, 8954952, 8280191826 ####[facility] (DEFAULT)[address] [place] [address] 96440 Man Diff? Auto Normal [facility] Comment on above: Performed By: #### 1 609502324, 3120396462, 4269602, 22841027, 5592249, 3188336166 ####[facility] (DEFAULT)[address] [place] [address] 81848 MCH (RBC) [Entitic mass] 28 pg Normal 24-34 [facility] Comment on above: Performed By: #### 1 422589709, 3939991448, 5290990, 37189736, 5952413, 5470426063 ####[facility] (DEFAULT)[address] [place] [address] 18980 MCHC (RBC) [Mass/Vol] 30 g/dL Normal 26-37 [facility] Comment on above: Performed By: #### 1 358868488, 6300721719, 1612409, 13521190, 5256663, 0087217117 ####[facility] (DEFAULT)[address] [place] [address] 13863 MCV (RBC) [Entitic vol] 93 fL Normal 81-100 [facility] Comment on above: Performed By: #### 1 366727814, 5452873390, 4432952, 21759843, 9836831, 7725372977 ####[facility] (DEFAULT)[address] [place] [address] 08102 Platelet 345 x10 Normal 138-427 [facility] Comment on above: Performed By: #### 1 514383935, 5233830794, 5117587, 06691633, 5096782, 6732839137 ####[facility] (DEFAULT)[address] [place] [address] 63815 Platelet mean volume (Bld) [Entitic vol] 9.3 fL Normal 6.3-10.2 [facility] Comment on above: Performed By: #### 1 982674383, 5028095032, 6882194, 06727651, 3133661, 6859249423 ####[facility] (DEFAULT)[address] [place] [address] RBC 2.74 x10 Low 3.70-5.30 [facility] Comment on above: Performed By: #### 1 821752993, 2091685815, 7169107, 10088899, 7905518, 4871882109 ####[facility] (DEFAULT)[address] [place] [address] WBC 4.9 x10 Normal 3.5-10.5 [facility] Comment on above: Performed By: #### 1 417811441, 8628228534, 1270199, 56219066, 5421248, 4035264476 ####[facility] (DEFAULT)[address] [place] [address] Standardon 08-10-2021 eGFR Non AA >60 Invalid Interpretation Code [facility] Comment on above: Performed By: #### 1 884510353, 8874232143, 7163688, 52239919, 5081562, 1116763296 ####[facility] (DEFAULT)[address] [place] [address] 31321 eGFR AA >60 Invalid Interpretation Code [facility] Comment on above: Result Comment: Relief Cook juanito Kidney disease could be indicated at eGFRs of less than 60 ml/min/1.73m2. Kidney Failure is indicated at less than 15 ml/min/1.73m2 Performed By: #### 1 400080433, 4878487946, 1032898, 18780158, 3584266, 6737234943 ####[facility] (DEFAULT)[address] [place] [address] 94092 Albumin [Mass/Vol] 3.3 g/dL Low 3.5-5.0 [facility] Comment on above: Performed By: #### 1 496507047, 0704040853, 5083373, 84439770, 4871166, 4507410438 ####[facility] (DEFAULT)[address] [place] [address] Albumin/Globulin [Mass ratio] 2.4 {ratio} Normal 1.4-2.6 [facility] Comment on above: Performed By: #### 1 043647381, 8201401186, 0029305, 42187377, 2193929, 1597378201 ####[facility] (DEFAULT)[address] [place] [address] Alk Phos 27 IU/L Low 32-91 [facility] Comment on above: Performed By: #### 1 782917391, 7955562716, 4442196, 29192745, 7985527, 4131422293 ####[facility] (DEFAULT)[address] [place] [address] ALT [Catalytic activity/Vol] 14.0 U/L Normal 14.0-54.0 [facility] Comment on above: Performed By: #### 1 406114247, 6390155539, 2136057, 19496614, 2075705, 2203347763 ####[facility] (DEFAULT)[address] [place] [address] Anion gap [Moles/Vol] 16.0 mmol/L Normal 5.0-19.0 [facility] Comment on above: Performed By: #### 1 112231085, 2364819473, 4322749, 37806968, 1952515, 1493058538 ####[facility] (DEFAULT)[address] [place] [address] 89277 AST [Catalytic activity/Vol] 23 U/L Normal 15-41 [facility] Comment on above: Performed By: #### 1 771790814, 3397272972, 3902979, 11735920, 5398989, 5701401132 ####[facility] (DEFAULT)[address] [place] [address] Bili Total 0.3 mg/dL Normal 0.3-1.2 [facility] Comment on above: Performed By: #### 1 729505996, 2027814563, 8412096, 47940468, 2721301, 7856053011 ####[facility] (DEFAULT)[address] [place] [address] 58877 Calcium [Mass/Vol] 6.4 mg/dL Low 8.9-10.3 [facility] Comment on above: Performed By: #### 1 363700088, 9590027064, 3928886, 89578038, 4042857, 2864878282 ####[facility] (DEFAULT)[address] [place] [address] 11144 Chloride [Moles/Vol] 105 mmol/L Normal 101-111 [facility] Comment on above: Performed By: #### 1 152457588, 0440370526, 6286746, 94554182, 2577160, 4472164971 ####[facility] (DEFAULT)[address] [place] [address] 18970 CO2 [Moles/Vol] 25 mmol/L Normal 21-32 [facility] Comment on above: Performed By: #### 1 041937855, 1655263273, 3579465, 27206720, 5542397, 4365598194 ####[facility] (DEFAULT)[address] [place] [address] 70189 Creatinine [Mass/Vol] 0.64 mg/dL Normal 0.60-1.30 [facility] Comment on above: Performed By: #### 1 069192532, 8009372813, 4731539, 32950910, 7545267, 1353575357 ####[facility] (DEFAULT)[address] [place] [address] 17410 Globulin (S) [Mass/Vol] 1.4 g/dL Low 1.5-4.3 [facility] Comment on above: Performed By: #### 1 799573744, 1749687212, 4031996, 39645439, 1367504, 8579908583 ####[facility] (DEFAULT)[address] [place] [address] 24206 Glucose [Mass/Vol] 74.0 mg/dL Normal 74.0-118.0 [facility] Comment on above: Performed By: #### 1 637833184, 7307536199, 8954603, 44415896, 5858358, 2178691018 ####[facility] (DEFAULT)[address] [place] [address] 81471 Osmolality 279 mOsm/L Invalid Interpretation Code [facility] Comment on above: Performed By: #### 1 725542154, 3721975226, 3192484, 78688730, 9943744, 6568844446 ####[facility] (DEFAULT)[address] [place] [address] 77137 Potassium [Moles/Vol] 3.8 mmol/L Normal 3.6-5.1 [facility] Comment on above: Performed By: #### 1 120333508, 5780578854, 7058291, 08682599, 5840028, 8540941703 ####[facility] (DEFAULT)[address] [place] [address] 69764 Protein [Mass/Vol] 4.7 g/dL Low 6.5-8.1 [facility] Comment on above: Performed By: #### 1 889980292, 9758685258, 3076451, 66970967, 9144030, 0615399590 ####[facility] (DEFAULT)[address] [place] [address] 20345 Sodium [Moles/Vol] 142.0 mmol/L Normal 136.0-144.0 [facility] Comment on above: Performed By: #### 1 675384610, 5551367116, 2500303, 23892531, 5582277, 9575051956 ####[facility] (DEFAULT)[address] [place] [address] 56117 Urea nitrogen [Mass/Vol] 6 mg/dL Low 8-26 [facility] Comment on above: Performed By: #### 1 098768618, 0935019558, 7930611, 02446131, 4213960, 1940286961 ####[facility] (DEFAULT)[address] [place] [address] 29703 Urea nitrogen/Creatinin e [Mass ratio] 9.0 mg/mg Normal 4.6-16.2 [facility] Comment on above: Performed By: #### 1 798161345, 2505254418, 4686602, 40338699, 8823683, 9939834477 ####[facility] (DEFAULT)[address] [place] [address] 23504 Extra Greyon 08-10-2021 Tube Collected Yes Invalid Interpretation Code [facility] Comment on above: Performed By: #### 2 960446248, 65556480 ####[facility] (DEFAULT)[address] [place] [address] 33480 Extra Redon 08-10-2021 Tube Collected Yes Invalid Interpretation Code [facility] Comment on above: Performed By: #### 1 857289826, 5580837727, 9957948, 20042842, 3167548, 6983704092 ####[facility] (DEFAULT)[address] [place] [address] 75975 MAGR Intraoperative Recordon 08-10-2021 MAGR Intraoperative Record MAGR Intra-Op Record Summary Primary Physician: Noe Reed MD Finalized Date/Time: 08/10/21 10:21:22 Pt. Name: ASHVIN RENE /Sex: 1955 FEMALE Med Rec #: [id number] Physician: Norman Hughes MD Financial #: [id number] Pt. Type: I Room/Bed: [facility] Admit/Disch: 08/06/21 17:10:50 - Institution: Case Times [...] Role Performed Surgeon - Primary Anesthesiologist of Application Integration Specialist Record Time In 08/10/21 09:00:00 08/10/21 09:00:00 08/10/21 09:00:00 Time Out 08/10/21 10:01:00 08/10/21 10:01:00 08/10/21 10:01:00 Procedure Esophagogastroduodenosco Esophagogastroduodenosco Esophagogastroduodenosco py and Colonosco py and Colonosco py and Colonosco Last Modified By: Helena Sandoval 08/10/21 Helena Sandoval 08/10/21 Helena Sandoval 08/10/21 10:19:10 10:19:10 10:19:10 Entry 4 Entry 5 Case Attendee Mandy Perdomo RN, Regina CST Role Performed Application Integration Specialist Scrub Personnel Time In 08/10/21 09:00:00 08/10/21 [...] injury r (more content not included)... Normal [facility] 08-10-2021 Magnesium [Mass/Vol] 1.50 mg/dL Low 1.80-2.50 [facility] Comment on above: Performed By: #### 1 [id number], 3004304985, 3906323, 89869264, 9673651, 1547256339 ####[facility] (DEFAULT)[address] [place] [address] Nutrition Noteon 08-10-2021 Nutrition Note No new wts, Per inta ke records, Pt intake ranging 25-100%, eating better for lunch. Pt also taking supplements well. These appear to have been discontinued for scheduled colonscopy/EGD this am and not resumed. Per MD notes, tests unremarkable. With improving intake avg >/+ 50% of most meals, will hold off from re-adding Ensure. Will continue to monitor. [facility] Progress Note - Nurseon 07-15 Progress Note - Nurse pt returns from recovery. alert and drowsy. iv intact. pt able to tolerate water with no issues. denies pain. report received from holly perdomo RN. will continue to monitor. [Electronically Signed on: 08/10/2021 11:35 EST] Joslyn Roth RN [Verified on: 08/10/2021 11:35 EST] Joslyn Roth RN [facility] Telemetry Stripson Telemetry Strips [id number]#1.00OTGTIFF [facility] Telemetry Strips [id number]#1.00OTGTIFF [facility] .Auto Diff 1on 08-09-2021 Auto [place] % 10 % Normal 07-25 [facility] Comment on above: Performed By: #### 2 701918, 1204960872, 7582769, 47258018 ####[facility] (DEFAULT)[address] [place] [address] 46158 Baso Abs# 0.0 x10 Normal 0.0-0.2 [facility] Comment on above: Performed By: #### 2 139009, 0357088274, 7307618, 44130246 ####[facility] (DEFAULT)[address] [place] [address] 46753 Basophils/100 WBC (Bld) 0.6 % Normal 0.2-2.0 [facility] Comment on above: Performed By: #### 2 526495, 4961025261, 4275799, 34814817 ####[facility] (DEFAULT)[address] [place] [address] 21691 Eos Abs# 0.2 x10 Normal 0.0-0.4 [facility] Comment on above: Performed By: #### 2 735063, 8843991180, 1982538, 74087206 ####[facility] (DEFAULT)[address] [place] [address] 30987 Eosinophils/100 WBC (Bld) 3.3 % Normal 0.9-4.0 [facility] Comment on above: Performed By: #### 2 739969, 8663847315, 1498735, 58466668 ####[facility] (DEFAULT)[address] [place] [address] 51887 Lymph Abs# 1.2 x10 Low 1.3-2.9 [facility] Comment on above: Performed By: #### 2 304038, 9737878259, 5814513, 48432147 ####[facility] (DEFAULT)[address] [place] [address] 60531 Lymphocytes/100 WBC (Bld) 21 % Normal 14-48 [facility] Comment on above: Performed By: #### 2 176533, 8363458457, 6478683, 97325904 ####[facility] (DEFAULT)[address] [place] [address] 85567 [place] Abs# 0.5 x10 Normal 0.0-0.8 [facility] Comment on above: Performed By: #### 2 754404, 6005572097, 7249475, 36026387 ####[facility] (DEFAULT)[address] [place] [address] 63067 Neut Abs# 3.6 x10 Normal 1.5-9.2 [facility] Comment on above: Performed By: #### 2 710971, 8829970876, 2005170, 23623585 ####[facility] (DEFAULT)[address] [place] [address] Neutrophils/100 WBC (Bld) 65 % Normal 44-88 [facility] Comment on above: Performed By: #### 2 863904, 9154248306, 7944268, 77964755 ####[facility] (DEFAULT)[address] [place] [address] 11208[facility] Standardon 08-09-2021 eGFR Non AA >60 Invalid Interpretation Code [facility] Comment on above: Performed By: #### 2 608282, 6344975982, 0113665, 90598636 ####[facility] (DEFAULT)[address] [place] [address] eGFR AA >60 Invalid Interpretation Code [facility] Comment on above: Result Comment: Relief Cook juanito Kidney disease could be indicated at eGFRs of less than 60 ml/min/1.73m2. Kidney Failure is indicated at less than 15 ml/min/1.73m2 Performed By: #### 2 076608, 3070673028, 2244783, 82363039 ####[facility] (DEFAULT)[address] [place] [address] 99503 Anion gap [Moles/Vol] 16.0 mmol/L Normal 5.0-19.0 [facility] Comment on above: Performed By: #### 2 450623, 7410801343, 7040211, 61341350 ####[facility] (DEFAULT)[address] [place] [address] 57888 Calcium [Mass/Vol] 6.2 mg/dL Low 8.9-10.3 [facility] Comment on above: Performed By: #### 2 364589, 8849847979, 9189454, 16589509 ####[facility] (DEFAULT)[address] [place] [address] 66385 Chloride [Moles/Vol] 107 mmol/L Normal 101-111 [facility] Comment on above: Performed By: #### 2 [id number], [id number], [id number], [id number] ####[facility] (DEFAULT)[address] [place] [address] 60774 CO2 [Moles/Vol] 24 mmol/L Normal 21-32 [facility] Comment on above: Performed By: #### 2 [id number], [id number], [id number], [id number] ####[facility] (DEFAULT)[address] [place] [address] 95482 Creatinine [Mass/Vol] 0.72 mg/dL Normal 0.60-1.30 [facility] Comment on above: Performed By: #### 2 [id number], [id number], [id number], [id number] ####[facility] (DEFAULT)[address] [place] [address] 91777 Glucose [Mass/Vol] 79.0 mg/dL Normal 74.0-118.0 [facility] Comment on above: Performed By: #### 2 [id number], [id number], [id number], [id number] ####[facility] (DEFAULT)[address] [place] [address] 11894 Osmolality 282 mOsm/L Invalid Interpretation Code [facility] Comment on above: Performed By: #### 2 [id number], [id number], [id number], [id number] ####[facility] (DEFAULT)[address] [place] [address] 47814 Potassium [Moles/Vol] 3.9 mmol/L Normal 3.6-5.1 [facility] Comment on above: Performed By: #### 2 [id number], [id number], [id number], [id number] ####[facility] (DEFAULT)[address] [place] [address] 80845 Sodium [Moles/Vol] 143.0 mmol/L Normal 136.0-144.0 [facility] Comment on above: Performed By: #### 2 [id number], [id number], [id number], [id number] ####[facility] (DEFAULT)[address] [place] [address] Urea nitrogen [Mass/Vol] 8 mg/dL Normal 8-26 [facility] Comment on above: Performed By: #### 2 765580, [id number], [id number], [id number] ####[facility] (DEFAULT)[address] [place] [address] Urea nitrogen/Creatinin e [Mass ratio] 11.0 mg/mg Normal 4.6-16.2 [facility] Comment on above: Performed By: #### 2 199755, [id number], 4041354, 99590429 ####[facility] (DEFAULT)[address] [place] [address] CBC w/ Auto Diffon Erythrocyte distribution width (RBC) [Ratio] 17.9 % High 11.5-15.0 [facility] Comment on above: Performed By: #### 2 795739, 6258784956, 2967880, 14790455 ####[facility] (DEFAULT)[address] [place] [address] Hematocrit (Bld) [Volume fraction] 24.1 % Low 33.7-40.4 [facility] Comment on above: Performed By: #### 2 564502, 6498655570, 5745908, 32377684 ####[facility] (DEFAULT)[address] [place] [address] Hemoglobin (Bld) [Mass/Vol] 7.2 g/dL Low 11.3-15.9 [facility] Comment on above: Result Comment: RIGO barrientos pt received 1 unit on 08/06/21 Performed By: #### 2 696787, [id number], 5357479, 38897208 ####[facility] (DEFAULT)[address] [place] [address] Instr WBC 5.4 x10 Invalid Interpretation Code [facility] Comment on above: Performed By: #### 2 726519, 4090306574, 9293543, 40744569 ####[facility] (DEFAULT)[address] [place] [address] 90935 Man Diff? Auto Normal [facility] Comment on above: Performed By: #### 2 775135, 2579612823, 2464459, 14625080 ####[facility] (DEFAULT)[address] [place] [address] 86081 MCH (RBC) [Entitic mass] 28 pg Normal 24-34 [facility] Comment on above: Performed By: #### 2 127593, [id number], 7816894, 68322232 ####[facility] (DEFAULT)[address] [place] [address] MCHC (RBC) [Mass/Vol] 30 g/dL Normal 26-37 [facility] Comment on above: Performed By: #### 2 410509, [id number], 8861468, 02118302 ####[facility] (DEFAULT)[address] [place] [address] 23974 MCV (RBC) [Entitic vol] 94 fL Normal 81-100 [facility] Comment on above: Performed By: #### 2 415448, [id number], 4776840, 99886858 ####[facility] (DEFAULT)[address] [place] [address] 93283 Platelet 336 x10 Normal 138-427 [facility] Comment on above: Performed By: #### 2 703822, 0072969754, 5993543, 14383757 ####[facility] (DEFAULT)[address] [place] [address] 46628 Platelet mean volume (Bld) [Entitic vol] 9.5 fL Normal 6.3-10.2 [facility] Comment on above: Performed By: #### 2 407519, 2023476959, 1085404, 40585316 ####[facility] (DEFAULT)[address] [place] [address] 56227 RBC 2.57 x10 Low 3.70-5.30 [facility] Comment on above: Performed By: #### 2 405336, 0247744245, 5139133, 73030596 ####[facility] (DEFAULT)[address] [place] [address] WBC 5.4 x10 Normal 3.5-10.5 [facility] Comment on above: Performed By: #### 2 701137, 0044975311, 9477238, 37310969 ####[facility] (DEFAULT)[address] [place] [address] 68155 Cortisol LCon 08-09-2021 Cortisol LC 15.5 ug/dL Invalid Interpretation Code [facility] Comment on above: Result Comment: [place] isol AM 6.2 - 19.4 Cortisol PM 2.3 - 11.9 Performed At: [facility] [address] [id number] Brenna Iyer PhD Ph:[phone] Performed By: #### 7 051186, 94526898, 4307121, 7551869749 #### [facility] (DEFAULT) [address] [place] [address] Lab - AP Resultson 2 Lab - AP Results [id number] Normal [facility] Magnesiumon 08-09-2021 Magnesium [Mass/Vol] 1.56 mg/dL Low 1.80-2.50 [facility] Comment on above: Performed By: #### 2 496966, 8517487215, 7401138, 85340721 ####[facility] (DEFAULT)[address] [place] [address] Telemetry Stripson 2 Telemetry Strips [id number]#1.00OTGTIFF Normal [facility] .Auto Diff 1on 08-08-2021 Auto [place] % 8 % Normal -12 [facility] Comment on above: Performed By: #### 7 129919, 74778127, 2236196, 7365675339 #### [facility] (DEFAULT) [address] [place] [address] Baso Abs# 0.0 x10 Normal 0.0-0.2 [facility] Comment on above: Performed By: #### 7 748689, 38748444, 1387733, 5283980716 #### [facility] (DEFAULT) [address] [place] [address] 06090 Basophils/100 WBC (Bld) 0.8 % Normal 0.2-2.0 [facility] Comment on above: Performed By: #### 7 287780, 61519343, 7413438, 4548517598 #### [facility] (DEFAULT) [address] [place] [address] Eos Abs# 0.2 x10 Normal 0.0-0.4 [facility] Comment on above: Performed By: #### 7 766055, 73919508, 7335020, 1769628902 #### [facility] (DEFAULT) [address] [place] [address] Eosinophils/100 WBC (Bld) 2.6 % Normal 0.9-4.0 [facility] Comment on above: Performed By: #### 7 960688, 41119937, 7530400, 5093777564 #### [facility] (DEFAULT) [address] [place] [address] Lymph Abs# 1.8 x10 Normal 1.3-2.9 [facility] Comment on above: Performed By: #### 7 375186, 24996936, 0812305, 1310004431 #### [facility] (DEFAULT) [address] [place] [address] 26818 Lymphocytes/100 WBC (Bld) 27 % Normal 14-48 [facility] Comment on above: Performed By: #### 7 873486, 14261035, 5961297, 5444885686 #### [facility] (DEFAULT) [address] [place] [address] [place] Abs# 0.5 x10 Normal 0.0-0.8 [facility] Comment on above: Performed By: #### 7 013304, 58171254, 2177683, 0875224305 #### [facility] (DEFAULT) [address] [place] [address] Neut Abs# 4.0 x10 Normal 1.5-9.2 [facility] Comment on above: Performed By: #### 7 397809, 01217567, 0140934, 4248011577 #### [facility] (DEFAULT) [address] [place] [address] Neutrophils/100 WBC (Bld) 62 % Normal 44-88 [facility] Comment on above: Performed By: #### 7 055285, 01075225, 7162794, 1041832427 #### [facility] (DEFAULT) [address] [place] [address] Ambulance Noteon 08-08-2021 Ambulance Note [id number] Normal [facility] BMP Standardon 08-08-2021 eGFR Non AA >60 Invalid Interpretation Code [facility] Comment on above: Performed By: #### 7 446710, 73788850, 4855697, 5676051693 #### [facility] (DEFAULT) [address] [place] [address] eGFR AA >60 Invalid Interpretation Code [facility] Comment on above: Result Comment: Relief Cook juanito Kidney disease could be indicated at eGFRs of less than 60 ml/min/1.73m2. Kidney Failure is indicated at less than 15 ml/min/1.73m2 Performed By: #### 7 256801, 00916558, 9145322, 2316989517 #### [facility] (DEFAULT) [address] [place] [address] 50011 Anion gap [Moles/Vol] 15.0 mmol/L Normal 5.0-19.0 [facility] Comment on above: Performed By: #### 7 696198, 61589389, 9361710, 3187906363 #### [facility] (DEFAULT) [address] [place] [address] Calcium [Mass/Vol] 5.9 mg/dL Critically abnormal 8.9-10.3 [facility] Comment on above: Result Comment: Crit ical CALC 5.9 result called and read back ok to: DEMETRA DAS RN 2S at: 05:25:23 08/08/2021 by: SYBIL Performed By: #### 7 915353, 27032577, 1465439, 2907290295 #### [facility] (DEFAULT) [address] [place] [address] 21261 Chloride [Moles/Vol] 109 mmol/L Normal 101-111 [facility] Comment on above: Performed By: #### 7 153795, 28953180, 9371930, 8398654271 #### [facility] (DEFAULT) [address] [place] [address] 90965 CO2 [Moles/Vol] 20 mmol/L Low 21-32 [facility] Comment on above: Performed By: #### 7 338143, 46808206, 5613095, 1696529956 #### [facility] (DEFAULT) [address] [place] [address] 79066 Creatinine [Mass/Vol] 0.68 mg/dL Normal 0.60-1.30 [facility] Comment on above: Performed By: #### 7 336505, 35579679, 1615341, 4080172722 #### [facility] (DEFAULT) [address] [place] [address] 17858 Glucose [Mass/Vol] 82.0 mg/dL Normal 74.0-118.0 [facility] Comment on above: Performed By: #### 7 437923, 42449445, 9513895, 1045843968 #### [facility] (DEFAULT) [address] [place] [address] 92277 Osmolality 277 mOsm/L Invalid Interpretation Code [facility] Comment on above: Performed By: #### 7 012053, 01530461, 0436814, 4980672851 #### [facility] (DEFAULT) [address] [place] [address] 69285 Potassium [Moles/Vol] 3.6 mmol/L Normal 3.6-5.1 [facility] Comment on above: Performed By: #### 7 890335, 43529736, 6953797, 0730625441 #### [facility] (DEFAULT) [address] [place] [address] 82963 Sodium [Moles/Vol] 140.0 mmol/L Normal 136.0-144.0 [facility] Comment on above: Performed By: #### 7 604664, 37452815, 4145515, 2856800783 #### [facility] (DEFAULT) [address] [place] [address] 52114 Urea nitrogen [Mass/Vol] 9 mg/dL Normal 8-26 [facility] Comment on above: Performed By: #### 7 140460, 82468124, 0597929, 6036873465 #### [facility] (DEFAULT) [address] [place] [address] Urea nitrogen/Creatinin e [Mass ratio] 13.0 mg/mg Normal 4.6-16.2 [facility] Comment on above: Performed By: #### 7 227813, 42647481, 1179305, 2793201719 #### [facility] (DEFAULT) [address] [place] [address] CBC w/ Auto Diffon 2 Erythrocyte distribution width (RBC) [Ratio] 18.4 % High 11.5-15.0 [facility] Comment on above: Performed By: #### 1 274280342, 9011597, 42574258, 9935682 #### [facility] (DEFAULT) [address] [place] [address] Hematocrit (Bld) [Volume fraction] 31.6 % Low 33.7-40.4 [facility] Comment on above: Performed By: #### 1 184557783, 6030546, 39223554, 6201557 #### [facility] (DEFAULT) [address] [place] [address] 24326 Hemoglobin (Bld) [Mass/Vol] 9.6 g/dL Low 11.3-15.9 [facility] Comment on above: Performed By: #### 1 641270874, 1885813, 30247157, 2077503 #### [facility] (DEFAULT) [address] [place] [address] Instr WBC 6.5 x10 Invalid Interpretation Code [facility] Comment on above: Performed By: #### 1 [id number], 2803146, 66561896, 4767308 #### [facility] (DEFAULT) [address] [place] [address] Man Diff? Auto Normal [facility] Comment on above: Performed By: #### 1 029395188, 9724993, 50618281, 5864541 #### [facility] (DEFAULT) [address] [place] [address] 17428 MCH (RBC) [Entitic mass] 28 pg Normal 24-34 [facility] Comment on above: Performed By: #### 1 051724384, 5190132, 88602714, 1730651 #### [facility] (DEFAULT) [address] [place] [address] 48071 MCHC (RBC) [Mass/Vol] 30 g/dL Normal 26-37 [facility] Comment on above: Performed By: #### 1 450521771, 5416748, 39552355, 9580527 #### [facility] (DEFAULT) [address] [place] [address] MCV (RBC) [Entitic vol] 92 fL Normal 81-100 [facility] Comment on above: Performed By: #### 1 408947288, 0436370, 72656645, 0658341 #### [facility] (DEFAULT) [address] [place] [address] Platelet 450 x10 High 138-427 [facility] Comment on above: Performed By: #### 1 223922288, 5763305, 48452040, 7869027 #### [facility] (DEFAULT) [address] [place] [address] Platelet mean volume (Bld) [Entitic vol] 9.4 fL Normal 6.3-10.2 [facility] Comment on above: Performed By: #### 1 153154839, 5404251, 11488510, 7559525 #### [facility] (DEFAULT) [address] [place] [address] RBC 3.45 x10 Low 3.70-5.30 [facility] Comment on above: Performed By: #### 1 935677262, 9286699, 83179004, 0833123 #### [facility] (DEFAULT) [address] [place] [address] 66277 WBC 6.5 x10 Normal 3.5-10.5 [facility] Comment on above: Performed By: #### 1 061686293, 8013666, 47371736, 1907181 #### [facility] (DEFAULT) [address] [place] [address] 68996 CRPon 08-08-2021 CRP 0.6 mg/dL High <=0.5 [facility] Comment on above: Performed By: #### 7 324040, 03675197, 9420889, 9147257418 #### [facility] (DEFAULT) [address] [place] [address] 08046 Haptoglobin LCon 08-08-2021 Haptoglobin LC 162 mg/dL Invalid Interpretation Code 28-885 [facility] Comment on above: Result Comment: Perf ormed At: [facility] [address] [id number] Brenna Iyer PhD Ph:[phone] Performed By: #### 1 [id number], 0168030, 17692965, 5586721 #### [facility] (DEFAULT) [address] [place] [address] 02970 Magnesiumon 08-08-2021 Magnesium [Mass/Vol] 1.47 mg/dL Low 1.80-2.50 [facility] Comment on above: Performed By: #### 7 065981, 20018107, 5379795, 8828440203 #### [facility] (DEFAULT) [address] [place] [address] 00432 Nutrition Noteon 08-08-2021 SARS-CoV-2 (COVID-19) RNA JESSICA+probe [...] Ensure Compact BIDWM and monitor acceptance. Normal [facility] Telemetry Stripson 2 Telemetry Strips [id number] Normal [facility] .Auto Diff 108-07-2021 Auto [place] % 8 % Normal 07-25 [facility] Comment on above: Performed By: #### 1 105510203, 6066359, 30254912, 9633975 #### [facility] (DEFAULT) [address] [place] [address] 55352 Baso Abs# 0.0 x10 Normal 0.0-0.2 [facility] Comment on above: Performed By: #### 1 437984229, 6504325, 93298247, 5815670 #### [facility] (DEFAULT) [address] [place] [address] 24691 Basophils/100 WBC (Bld) 0.6 % Normal 0.2-2.0 [facility] Comment on above: Performed By: #### 1 277084758, 5974260, 45516744, 6134289 #### [facility] (DEFAULT) [address] [place] [address] 69224 Eos Abs# 0.1 x10 Normal 0.0-0.4 [facility] Comment on above: Performed By: #### 1 778728895, 7421264, 79043214, 8900672 #### [facility] (DEFAULT) [address] [place] [address] 39326 Eosinophils/100 WBC (Bld) 1.3 % Normal 0.9-4.0 [facility] Comment on above: Performed By: #### 1 527678032, 1560341, 50220565, 5130717 #### [facility] (DEFAULT) [address] [place] [address] 14522 Lymph Abs# 1.6 x10 Normal 1.3-2.9 [facility] Comment on above: Performed By: #### 1 809539764, 6883298, 18493710, 1626768 #### [facility] (DEFAULT) [address] [place] [address] Lymphocytes/100 WBC (Bld) 24 % Normal 14-48 [facility] Comment on above: Performed By: #### 1 204068108, 4380020, 92019783, 3928362 #### [facility] (DEFAULT) [address] [place] [address] [place] Abs# 0.6 x10 Normal 0.0-0.8 [facility] Comment on above: Performed By: #### 1 128869364, 6731303, 64008543, 6761551 #### [facility] (DEFAULT) [address] [place] [address] Neut Abs# 4.4 x10 Normal 1.5-9.2 [facility] Comment on above: Performed By: #### 1 225597822, 3079414, 54306185, 1964093 #### [facility] (DEFAULT) [address] [place] [address] Neutrophils/100 WBC (Bld) 65 % Normal 44-88 [facility] Comment on above: Performed By: #### 1 345208796, 4522719, 92229464, 2765611 #### [facility] (DEFAULT) [address] [place] [address] CBC w/ Auto Diffon 2 Erythrocyte distribution width (RBC) [Ratio] 18.4 % High 11.5-15.0 [facility] Comment on above: Performed By: #### 1 577719500, 6792371, 87032036, 8514692 #### [facility] (DEFAULT) [address] [place] [address] Hematocrit (Bld) [Volume fraction] 33.1 % Low 33.7-40.4 [facility] Comment on above: Performed By: #### 1 133060524, 7997747, 06414661, 6176814 #### [facility] (DEFAULT) [address] [place] [address] 77767 Hemoglobin (Bld) [Mass/Vol] 9.9 g/dL Low 11.3-15.9 [facility] Comment on above: Result Comment: Charo ent received 1 unit of PRBC's on 08/06/21 Performed By: #### 1 119958910, 3262297, 88595331, 8484281 #### [facility] (DEFAULT) [address] [place] [address] 64934 Instr WBC 6.7 x10 Invalid Interpretation Code [facility] Comment on above: Performed By: #### 1 381620997, 9197704, 36302847, 3257236 #### [facility] (DEFAULT) [address] [place] [address] 04693 Man Diff? Auto Normal [facility] Comment on above: Performed By: #### 1 070099841, 9354195, 87390956, 4670380 #### [facility] (DEFAULT) [address] [place] [address] 22317 MCH (RBC) [Entitic mass] 28 pg Normal 24-34 [facility] Comment on above: Performed By: #### 1 351852134, 3925916, 76966512, 9775963 #### [facility] (DEFAULT) [address] [place] [address] 29487 MCHC (RBC) [Mass/Vol] 30 g/dL Normal 26-37 [facility] Comment on above: Performed By: #### 1 594521638, 6714354, 62356684, 7220580 #### [facility] (DEFAULT) [address] [place] [address] 95583 MCV (RBC) [Entitic vol] 92 fL Normal 81-100 [facility] Comment on above: Performed By: #### 1 878513590, 3005814, 91062336, 4847811 #### [facility] (DEFAULT) [address] [place] [address] 58577 Platelet 515 x10 High 138-427 [facility] Comment on above: Performed By: #### 1 359098892, 2083704, 86887702, 9356292 #### [facility] (DEFAULT) [address] [place] [address] 97749 Platelet mean volume (Bld) [Entitic vol] 9.0 fL Normal 6.3-10.2 [facility] Comment on above: Performed By: #### 1 761414635, 1213152, 47380540, 9828751 #### [facility] (DEFAULT) [address] [place] [address] 13833 RBC 3.60 x10 Low 3.70-5.30 [facility] Comment on above: Performed By: #### 1 104494571, 0258860, 41205234, 3097808 #### [facility] (DEFAULT) [address] [place] [address] 97741 WBC 6.7 x10 Normal 3.5-10.5 [facility] Comment on above: Performed By: #### 1 622608499, 9469153, 02121396, 4156676 #### [facility] (DEFAULT) [address] [place] [address] 62863 CMP Standardon 08-07-2021 Albumin [Mass/Vol] 1.6 g/dL Low 3.5-5.0 [facility] Comment on above: Order Comment: I [...] blood work. CJ Performed By: #### 1 593642921, 8496482, 00102027, 1703895 #### [facility] (DEFAULT) [address] [place] [address] 31315 Albumin/Globulin [Mass ratio] 0.7 {ratio} Low 1.4-2.6 [facility] Comment on above: Order Comment: I [...] blood work. CJ Performed By: #### 1 614039257, 3359143, 02996633, 7700824 #### [facility] (DEFAULT) [address] [place] [address] 95502 Alk Phos 48 IU/L Normal 32-91 [facility] Comment on above: Order Comment: I [...] blood work. CJ Performed By: #### 1 183709794, 7122278, 08605031, 9243447 #### [facility] (DEFAULT) [address] [place] [address] 98013 ALT [Catalytic activity/Vol] 21.0 U/L Normal 14.0-54.0 [facility] Comment on above: Order Comment: I [...] blood work. CJ Performed By: #### 1 193760586, 4880259, 85862155, 8565666 #### [facility] (DEFAULT) [address] [place] [address] 05282 Anion gap [Moles/Vol] 14.0 mmol/L Normal 5.0-19.0 [facility] Comment on above: Order Comment: I had went upstairs to do patients Trop. at 2am. I also talked to Demetra the nurse about other blood work that had printed out and asked if they would like me to get it. Demetar said no and to wait til second trop. is due to get this blood work since patient had a sandwich for dinner. This is for ALL 2am blood work. CJ Performed By: #### 1 851095334, 5669227, 99151624, 1195229 #### [facility] (DEFAULT) [address] [place] [address] 23210 AST [Catalytic activity/Vol] 26 U/L Normal 15-41 [facility] Comment on above: Order Comment: I [...] blood work. CJ Performed By: #### 1 319439721, 5635844, 38570239, 5701821 #### [facility] (DEFAULT) [address] [place] [address] 43023 Bili Total 0.2 mg/dL Low 0.3-1.2 [facility] Comment on above: Order Comment: I [...] blood work. CJ Performed By: #### 1 844763540, 8984606, 66629163, 9473119 #### [facility] (DEFAULT) [address] [place] [address] 81460 Calcium [Mass/Vol] 5.9 mg/dL Critically abnormal 8.9-10.3 [facility] Comment on above: Order Comment: I had went upstairs to do patients Trop. at 2am. I also talked to eDmetra the nurse about other blood work that had printed out and asked if they would like me to get it. Demetra said no and to wait til second trop. is due to get this blood work since patient had a sandwich for dinner. This is for ALL 2am blood work. CJ Result Comment: Fransico tomlinson Called To Shiloh OBRIEN 2S By [facility] And Read Back For Confirmation On 08/07/2021 09:25:59 EST. Performed By: #### 1 [id number], 4808438, 06183370, 1466620 #### [facility] (DEFAULT) [address] [place] [address] 71968 Chloride [Moles/Vol] 108 mmol/L Normal 101-111 [facility] Comment on above: Order Comment: I [...] blood work. CJ Performed By: #### 1 419086955, 4054385, 84397095, 8071073 #### [facility] (DEFAULT) [address] [place] [address] 03940 CO2 [Moles/Vol] 21 mmol/L Normal 21-32 [facility] Comment on above: Order Comment: I [...] blood work. CJ Performed By: #### 1 619533461, 4837446, 82386498, 1894323 #### [facility] (DEFAULT) [address] [place] [address] 35212 Creatinine [Mass/Vol] 0.61 mg/dL Normal 0.60-1.30 [facility] Comment on above: Order Comment: I [...] blood work. CJ Performed By: #### 1 719645191, 2593233, 09416491, 6577269 #### [facility] (DEFAULT) [address] [place] [address] 12655 Globulin (S) [Mass/Vol] 2.3 g/dL Normal 1.5-4.3 [facility] Comment on above: Order Comment: I [...] blood work. CJ Performed By: #### 1 063431941, 1867999, 74159253, 3663492 #### [facility] (DEFAULT) [address] [place] [address] 82333 Glucose [Mass/Vol] 79.0 mg/dL Normal 74.0-118.0 [facility] Comment on above: Order Comment: I [...] blood work. CJ Performed By: #### 1 732869096, 4968087, 48461789, [id number] #### [facility] (DEFAULT) [address] [place] [address] 38969 Osmolality 277 mOsm/L Invalid Interpretation Code [facility] Comment on above: Order Comment: I [...] blood work. CJ Performed By: #### 1 [id number], [id number], [id number], [id number] #### [facility] (DEFAULT) [address] [place] [address] 98029 Potassium [Moles/Vol] 3.2 mmol/L Low 3.6-5.1 [facility] Comment on above: Order Comment: I [...] IV T herapy Performed By: #### 1 [id number], [id number], [id number], [id number] #### [facility] (DEFAULT) [address] [place] [address] 24919 Protein [Mass/Vol] 3.9 g/dL Low 6.5-8.1 [facility] Comment on above: Order Comment: I [...] blood work. CJ Performed By: #### 1 [id number], [id number], [id number], [id number] #### [facility] (DEFAULT) [address] [place] [address] 26186 Sodium [Moles/Vol] 140.0 mmol/L Normal 136.0-144.0 [facility] Comment on above: Order Comment: I [...] blood work. CJ Performed By: #### 1 [id number], [id number], [id number], [id number] #### [facility] (DEFAULT) [address] [place] [address] 31034 Urea nitrogen [Mass/Vol] 8 mg/dL Normal 8-26 [facility] Comment on above: Order Comment: I [...] blood work. CJ Performed By: #### 1 [id number], [id number], [id number], [id number] #### [facility] (DEFAULT) [address] [place] [address] Urea nitrogen/Creatinin e [Mass ratio] 13.0 mg/mg Normal 4.6-16.2 [facility] Comment on above: Order Comment: I [...] blood work. CJ Performed By: #### 1 [id number], [id number], [id number], [id number] #### [facility] (DEFAULT) [address] [place] [address] 69892 eGFR Non AA >60 Invalid Interpretation Code [facility] Comment on above: Order Comment: I [...] blood work. CJ Performed By: #### 1 [id number], [id number], [id number], [id number] #### [facility] (DEFAULT) [address] [place] [address] 70902 eGFR AA >60 Invalid Interpretation Code [facility] Comment on above: Order Comment: I [...] ALL 2am blood work. CJ Result Comment: Relief Cook juanito Kidney disease could be indicated at eGFRs of less than 60 ml/min/1.73m2. Kidney Failure is indicated at less than 15 ml/min/1.73m2 Performed By: #### 1 [id number], 5292198, 16211964, 3925690 #### [facility] (DEFAULT) [address] [place] [address] 09278 Consent Formson 08-07-2021 Consent Forms [id number] Normal [facility] ED Clinical Summaryon 2021 ED Clinical Summary [facility] - Emergency Department [address] [place], [place] [address] ED Clinical Summary PERSON INFORMATION Name: ASHVIN RENE Age: 65 Years Sex: FEMALE : 1955 MRN: Acct#: Visit Reason: General medical; ANEMIA, ELEVATED TROPONIN Arrival: 08/06/2021 17:10:50 Discharge: LOS: 000 05:17 Check In: 08/06/2021 17:10:50 Checkout:08/06/2021 22:27:57 Address: [address] [place] [address] PCP: TUSHAR SOLANO JR. 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 [...] -Pharynx is pink and dry NECK: -Supple (hrrd-hm-msyxd): non-tender. CARD: -Rate and rhythm: Regular -Edema: [...] was performed with patient's consent and nurse sales trainee Jessica in the room the entire time -External rectal exam reveals no abnormalities -Digital rectal exam reveals no masses or polyps within reach of my finger, stool guaiac is positive Medical Decision Making 55-year-old female presenting to the emergency department for evaluation of low blood pressure taken manually at senior living facility of 90/45 and possibility of looking mildly jaundiced. I discussed this with (more content not included)... Normal [facility] ED Patient Education Noteon 08-07-2021 ED Patient Education Note Education Materials [facility] ED Patient Summaryon 022 ED Patient Summary [facility] - Emergency Department [address] [place] [address] PATIENT DISCHARGE INSTRUCTIONS Patient Information Name: ASHVIN RENE Age: 65 Years Date of : 1955 Reason For Visit: General medical; ANEMIA, ELEVATED TROPONIN Arrival Time: 08/06/2021 17:10:50 Primary Care Physician: TUSHAR SOLANO JR. Attending Physician: Waqas Castro MD Comment: Visit Diagnosis: Diagnoses This Visit Anemia (D64.9) General medical ([id number]) GI bleed (K92.2) Peripheral edema (R60.9) Prescription Information: If you have been given a prescription for narcotics, seek immediate medical attention if you have any difficulty breathing or any sudden status changes such as confusion and sleepiness. If you or anyone you know is experiencing suicidal thoughts, mental health, alcohol and/or drug addiction problems; contact the [facility] 03/02 Crisis Hotline -Text 4HOPE to 908219. If you received any narcotics, sedation, or [...] and treatment you received today in the [facility] Emergency Department were for an urgent problem and are not intended as complete care. It is important for you to follow up with a doctor, nurse practitioner, or physician?s conference assistant for ongoing care. If your symptoms [...] so we can reach you if necessary. [facility] Emergency Department has provided you with a complete list of medications post discharge. Please inform your online activist/provider of your visit and for further instruction [...] mg oral tablet) potassium chloride (Potassium Chloride (Tri-Yebf-Ebg 10) 10 mEq oral tablet, extended release) [...] Weight Dosin. (more content not included)... Normal [facility] Ferritinon 08-07-2021 Ferritin [Mass/Vol] 14.2 ng/mL Normal 12.0-150.0 [facility] Comment on above: Performed By: #### 1 [id number], 8933419, 19204546, 5830645 #### [facility] (DEFAULT) [address] [place] [address] 46498 Folateon 08-07-2021 Folic Acid Level 6.62 ng/mL Normal 5.90-24.80 [facility] Comment on above: Result Comment: Norm al folate results > 3.0 ng/mL. Performed By: #### 1 [id number], 7783856, 44998024, 1542137 #### [facility] (DEFAULT) [address] [place] [address] 93162 Free T4on 08-07-2021 Free T4 [Mass/Vol] 1.30 ng/dL High 0.61-1.12 [facility] Comment on above: Result Comment: Spec imens that contain high levels of Biotin may cause false high results Performed By: #### 1 [id number], 6760928, 21513569, 1865661 #### [facility] (DEFAULT) [address] [place] [address] 97654 Iron Profileon 08-07-2021 Iron [Mass/Vol] 24.0 ug/dL Low 28.0-170.0 [facility] Comment on above: Performed By: #### 1 [id number], 5057269, 36569336, 0639657 #### [facility] (DEFAULT) [address] [place] [address] 76407 Iron Sat 15 % Low 20-55 [facility] Comment on above: Performed By: #### 1 [id number], 5245309, 74990097, 9462961 #### [facility] (DEFAULT) [address] [place] [address] 77222 TIBC 158 mcg/dL Low 250-400 [facility] Comment on above: Performed By: #### 1 [id number], 4075363, 69350923, 7327006 #### [facility] (DEFAULT) [address] [place] [address] 25340 Transferrin [Mass/Vol] 113.1 mg/dL Low 192.0-382.0 [facility] Comment on above: Performed By: #### 1 [id number], 8461272, 42419922, 1747707 #### [facility] (DEFAULT) [address] [place] [address] LDHon 08-07-2021 LDH 299.0 IU/L High 98.0-192.0 [facility] Comment on above: Performed By: #### 1 [id number], 1133428, 09173811, 7469834 #### [facility] (DEFAULT) [address] [place] [address] Magnesiumon 08-07-2021 Magnesium [Mass/Vol] 0.98 mg/dL Low 1.80-2.50 [facility] Comment on above: Performed By: #### 1 510604676, 2041458, 84158592, 5357878 #### [facility] (DEFAULT) [address] [place] [address] Occult Blood, Fecalon 2021 Internal QC OK? Pass Normal [facility] Comment on above: Performed By: #### 1 [id number], 2977112, 27798165, 9774270 #### [facility] (DEFAULT) [address] [place] [address] Occult Bld Stl Positive Abnormal Negative [facility] Comment on above: Performed By: #### 1 [id number], 3152438, 02651798, 9806370 #### [facility] (DEFAULT) [address] [place] [address] Path Reviewon 08-07-2021 Pathology Test See Report Normal [facility] Comment on above: Result Comment: Sepa rate report to follow. Sent to [facility] for Path Review Performed By: #### 1 [id number], 5912011, 32615437, 2686364 #### [facility] (DEFAULT) [address] [place] [address] Retic Counton 08-07-2021 Reticulocyte 2.8 % High 0.5-1.5 [facility] Comment on above: Performed By: #### 1 [id number], 9160579, 04787101, 9321369 #### [facility] (DEFAULT) [address] [place] [address] 18213 TSH w/ Reflex to FT4on 08-07 TSH Qn 16.54 m[IU]/L High 0.45-5.33 [facility] Comment on above: Result Comment: Gene ral Population (males and non- females, aged 21-88) 0.45 - 5.33 Females, 1st Trimester 0.05 - 3.70 Females, 2nd Trimester 0.31 - 4.35 Females, 3rd Trimester 0.41 - 5.18 Performed By: #### 1 [id number], 9921919, 66899945, 9969434 #### [facility] (DEFAULT) [address] [place], [place] [address] Telemetry Stripson 2 Telemetry Strips [id number] Normal [facility] TnI HSon 08-07-2021 Troponin I High Sensitivity 16 pg/mL Critically abnormal <=15 [facility] Comment on above: Result Comment: Elev ated hsTnI 16 result called and read back ok to: SHILOH OBRIEN 2S at: 09:07:23 08/07/2021 by: TAPAN Male Baseline Delta 1Hr (Note pg/mL=ng/L) <20pg/mL 50-60% >20pg/mL 20% Female Baseline Delta 1Hr <15pg/mL 50-60% >15pg/mL 20% Other Baseline Delta 1Hr <18ng/mL 50-60% >18ng/mL 20% ([employer] Guidelines February 2018) Performed By: #### 1 [id number], 4872997, 89667782, 0952532 #### [facility] (DEFAULT) [address] [place] [address] 78478 Troponin I High Sensitivity 19 pg/mL Critically abnormal <=15 [facility] Comment on above: Result Comment: Elev ated hsTnI 19 result called and read back ok to: DEMETRA DAS RN 2S at: 02:25:36 08/07/2021 by: SYBIL Male Baseline Delta 1Hr (Note pg/mL=ng/L) <20pg/mL 50-60% >20pg/mL 20% Female Baseline Delta 1Hr <15pg/mL 50-60% >15pg/mL 20% Other Baseline Delta 1Hr <18ng/mL 50-60% >18ng/mL 20% ([employer] Guidelines February 2018) Performed By: #### 7 369380, 27476528, 4300953, [id number] #### [facility] (DEFAULT) [address] [place] [address] US Echocardiogram Completeon 08-07-2021 US Echocardiogram Complete [...] tricuspid regurgitation. Tim Harrington MD JOB #: [id number] bk Final Dictated by: Tim Harrington MD Dictated DT/TM: 08/08/21 8:50 Signed (Electronic Signature): Tim Harrington MD 08/09/21 8:25 am Normal [facility] Vit B12 Lvlon 08-07-2021 Vit B12 853 Normal 180-914 [facility] Comment on above: Performed By: #### 1 [id number], 8946037, 48513331, 9569025 #### [facility] (DEFAULT) [address] [place] [address] 01051 .Auto Diff 1on - Auto [place] % 7 % Normal 1-12 [facility] Comment on above: Performed By: #### 7 974096, 61152349, 4363569, 5852312618 #### [facility] (DEFAULT) [address] [place], [place] [address] Baso Abs# 0.0 x10 Normal 0.0-0.2 [facility] Comment on above: Performed By: #### 7 748296, 29732414, 1263757, 5792044010 #### [facility] (DEFAULT) [address] [place] [address] Basophils/100 WBC (Bld) 0.5 % Normal 0.2-2.0 [facility] Comment on above: Performed By: #### 7 463262, 63375984, 6703287, 0300464353 #### [facility] (DEFAULT) [address] [place] [address] 66676 Eos Abs# 0.0 x10 Normal 0.0-0.4 [facility] Comment on above: Performed By: #### 7 981855, 04512074, 5435047, 8875933530 #### [facility] (DEFAULT) [address] [place] [address] 62961 Eosinophils/100 WBC (Bld) 0.7 % Low 0.9-4.0 [facility] Comment on above: Performed By: #### 7 244660, 91968627, 8243131, 3558442169 #### [facility] (DEFAULT) [address] [place] [address] 22330 Lymph Abs# 1.2 x10 Low 1.3-2.9 [facility] Comment on above: Performed By: #### 7 401659, 51276194, 0059521, 8386054167 #### [facility] (DEFAULT) [address] [place] [address] 27359 Lymphocytes/100 WBC (Bld) 16 % Normal 14-48 [facility] Comment on above: Performed By: #### 7 664867, 12793124, 4380106, 5205504498 #### [facility] (DEFAULT) [address] [place] [address] [place] Abs# 0.5 x10 Normal 0.0-0.8 [facility] Comment on above: Performed By: #### 7 007243, 99966871, 0286089, 0378892768 #### [facility] (DEFAULT) [address] [place] [address] Neut Abs# 5.7 x10 Normal 1.5-9.2 [facility] Comment on above: Performed By: #### 7 826250, 65912504, 5156839, 4081332940 #### [facility] (DEFAULT) [address] [place] [address] Neutrophils/100 WBC (Bld) 76 % Normal 44-88 [facility] Comment on above: Performed By: #### 7 982157, 22143249, 2098387, 9648210591 #### [facility] (DEFAULT) [address] [place] [address] ABORhon 08-06-2021 ABO and Rh group Nom (Bld) Hx Check: Not Found Anti-A: 0 Anti-B: 0 Anti-D: 4+ DCon: 0 A1: 4+ B: 4+ ABORh Interp: O POS Invalid Interpretation Code [facility] Comment on above: Performed By: #### 7 530635, 39388216, 8131148, [id number] #### [facility] (DEFAULT) [address] [place] [address] ABORh Retypeon 08-06-2021 ABO and Rh group Nom (Bld) Ordered by Discern. Anti-A: 0 Anti-B: 0 Anti-D: 4+ DCon: 0 A1: 3+ B: 3+ ABORh Retype: O POS Invalid Interpretation Code [facility] Comment on above: Performed By: #### 7 390334, 11456823, 4425827, [id number] #### [facility] (DEFAULT) [address] [place] [address] ABSC Gelon 08-06-2021 ABSC Gel Negative Normal [facility] Comment on above: Performed By: #### 7 563215, 25282288, 7949073, [id number] #### [facility] (DEFAULT) [address] [place] [address] BNP.on 08-06-2021 Natriuretic peptide B (Bld) [Mass/Vol] 123.0 pg/mL High 0.0-100.0 [facility] Comment on above: Result Comment: BNP results greater than 100 pg/mL are considered abnormal and suggestive of patients with CHF. Higher BNP concentrations measured in the first 72 hours after an acute coronary syndorme are associated with an increased risk of , myocardial infarction, and CHF. Performed By: #### 7 362745, 50815788, 2616095, [id number] #### [facility] (DEFAULT) [address] [place] [address] Blood Bank IDon 08-06-2021 Blood Bank ID BBID: [id number] Invalid Interpretation Code [facility] Comment on above: Performed By: #### 7 533358, 83273725, 2492604, [id number] #### [facility] (DEFAULT) [address] [place] [address] CBC w/ Auto Diffon Erythrocyte distribution width (RBC) [Ratio] 19.4 % High 11.5-15.0 [facility] Comment on above: Performed By: #### 7 882182, 62946544, 7861090, [id number] #### [facility] (DEFAULT) [address] [place] [address] Hematocrit (Bld) [Volume fraction] 24.7 % Low 33.7-40.4 [facility] Comment on above: Performed By: #### 7 343285, 86995659, 6081245, 9387309151 #### [facility] (DEFAULT) [address] [place] [address] Hemoglobin (Bld) [Mass/Vol] 7.4 g/dL Low 11.3-15.9 [facility] Comment on above: Performed By: #### 7 456474, 75060136, 6583127, 5357303138 #### [facility] (DEFAULT) [address] [place] [address] Instr WBC 7.5 x10 Invalid Interpretation Code [facility] Comment on above: Performed By: #### 7 206871, 89094947, 8993002, [id number] #### [facility] (DEFAULT) [address] [place] [address] 23536 Man Diff? RBC Morph Only Normal [facility] Comment on above: Performed By: #### 7 891755, 44389037, 7379798, 3161413025 #### [facility] (DEFAULT) [address] [place] [address] 85538 MCH (RBC) [Entitic mass] 28 pg Normal 24-34 [facility] Comment on above: Performed By: #### 7 230880, 34390316, 0620117, [id number] #### [facility] (DEFAULT) [address] [place] [address] 84682 MCHC (RBC) [Mass/Vol] 30 g/dL Normal 26-37 [facility] Comment on above: Performed By: #### 7 402765, 58935110, 1801548, 4120057034 #### [facility] (DEFAULT) [address] [place] [address] 23342 MCV (RBC) [Entitic vol] 92 fL Normal 81-100 [facility] Comment on above: Performed By: #### 7 790788, 52121601, 5523840, 7677841372 #### [facility] (DEFAULT) [address] [place] [address] 56098 Platelet 533 x10 High 138-427 [facility] Comment on above: Performed By: #### 7 855096, 02416524, 9042946, 2466668276 #### [facility] (DEFAULT) [address] [place] [address] 81242 Platelet mean volume (Bld) [Entitic vol] 8.8 fL Normal 6.3-10.2 [facility] Comment on above: Performed By: #### 7 398028, 21160076, 4237789, [id number] #### [facility] (DEFAULT) [address] [place] [address] 89040 RBC 2.67 x10 Low 3.70-5.30 [facility] Comment on above: Performed By: #### 7 852093, 34696423, 3951141, 5464437728 #### [facility] (DEFAULT) [address] [place] [address] 69742 WBC 7.5 x10 Normal 3.5-10.5 [facility] Comment on above: Performed By: #### 7 367018, 07601557, 6234970, 2348409684 #### [facility] (DEFAULT) [address] [place] [address] 35504 CMP Standardon 08-06-2021 eGFR Non AA >60 Invalid Interpretation Code [facility] Comment on above: Performed By: #### 7 050356, 28343607, 3772408, 6070220811 #### [facility] (DEFAULT) [address] [place] [address] 93991 eGFR AA >60 Invalid Interpretation Code [facility] Comment on above: Result Comment: Relief Cook juanito Kidney disease could be indicated at eGFRs of less than 60 ml/min/1.73m2. Kidney Failure is indicated at less than 15 ml/min/1.73m2 Performed By: #### 7 294765, 23246736, 8982065, 7477154000 #### [facility] (DEFAULT) [address] [place] [address] 53644 Albumin [Mass/Vol] 1.6 g/dL Low 3.5-5.0 [facility] Comment on above: Performed By: #### 7 073350, 28920327, 2962725, 1327837851 #### [facility] (DEFAULT) [address] [place] [address] 79576 Albumin/Globulin [Mass ratio] 0.7 {ratio} Low 1.4-2.6 [facility] Comment on above: Performed By: #### 7 297291, 21828485, 4517600, 4005964043 #### [facility] (DEFAULT) [address] [place] [address] 50896 Alk Phos 52 IU/L Normal 32-91 [facility] Comment on above: Performed By: #### 7 808376, 34400484, 5569482, 4888681597 #### [facility] (DEFAULT) [address] [place] [address] 94081 ALT [Catalytic activity/Vol] 23.0 U/L Normal 14.0-54.0 [facility] Comment on above: Performed By: #### 7 976308, 73004707, 2441602, 0935386612 #### [facility] (DEFAULT) [address] [place] [address] 50651 Anion gap [Moles/Vol] 14.0 mmol/L Normal 5.0-19.0 [facility] Comment on above: Performed By: #### 7 218344, 28766081, 2464041, 5099209736 #### [facility] (DEFAULT) [address] [place] [address] 14945 AST [Catalytic activity/Vol] 27 U/L Normal 15-41 [facility] Comment on above: Performed By: #### 7 040314, 06946926, 9240569, 3711238551 #### [facility] (DEFAULT) [address] [place] [address] 79435 Bili Total 0.4 mg/dL Normal 0.3-1.2 [facility] Comment on above: Performed By: #### 7 872418, 91606650, 3576276, 0963079743 #### [facility] (DEFAULT) [address] [place] [address] 86721 Calcium [Mass/Vol] 6.1 mg/dL Low 8.9-10.3 [facility] Comment on above: Performed By: #### 7 910875, 99861298, 0553507, 3589996995 #### [facility] (DEFAULT) [address] [place] [address] 70539 Chloride [Moles/Vol] 108 mmol/L Normal 101-111 [facility] Comment on above: Performed By: #### 7 864180, 76714928, 0216200, 8705002452 #### [facility] (DEFAULT) [address] [place] [address] 41113 CO2 [Moles/Vol] 21 mmol/L Normal 21-32 [facility] Comment on above: Performed By: #### 7 804964, 37150466, 4859496, 9874849876 #### [facility] (DEFAULT) [address] [place] [address] 18076 Creatinine [Mass/Vol] 0.64 mg/dL Normal 0.60-1.30 [facility] Comment on above: Performed By: #### 7 279042, 60287144, 2607054, 5388531508 #### [facility] (DEFAULT) [address] [place] [address] 18565 Globulin (S) [Mass/Vol] 2.4 g/dL Normal 1.5-4.3 [facility] Comment on above: Performed By: #### 7 142380, 91740252, 0763085, 1721898004 #### [facility] (DEFAULT) [address] [place] [address] 15396 Glucose [Mass/Vol] 118.0 mg/dL Normal 74.0-118.0 [facility] Comment on above: Performed By: #### 7 344700, 30340641, 8338449, 1432100261 #### [facility] (DEFAULT) [address] [place] [address] 53214 Osmolality 277 mOsm/L Invalid Interpretation Code [facility] Comment on above: Performed By: #### 7 048352, 24277037, 3371064, [id number] #### [facility] (DEFAULT) [address] [place] [address] 20246 Potassium [Moles/Vol] 3.8 mmol/L Normal 3.6-5.1 [facility] Comment on above: Performed By: #### 7 726972, 91152292, 3680659, 7453535616 #### [facility] (DEFAULT) [address] [place] [address] 40170 Protein [Mass/Vol] 4.0 g/dL Low 6.5-8.1 [facility] Comment on above: Performed By: #### 7 319136, 61803516, 9946543, 5469936474 #### [facility] (DEFAULT) [address] [place] [address] 73731 Sodium [Moles/Vol] 139.0 mmol/L Normal 136.0-144.0 [facility] Comment on above: Performed By: #### 7 292493, 28546709, 5085832, 4397040487 #### [facility] (DEFAULT) [address] [place] [address] 54165 Urea nitrogen [Mass/Vol] 9 mg/dL Normal 8-26 [facility] Comment on above: Performed By: #### 7 785495, 10610426, 2806866, 4772668571 #### [facility] (DEFAULT) [address] [place] [address] 86599 Urea nitrogen/Creatinin e [Mass ratio] 14.0 mg/mg Normal 4.6-16.2 [facility] Comment on above: Performed By: #### 7 807014, 91980379, 3679900, 9979237219 #### [facility] (DEFAULT) [address] [place] [address] 11470 ED Note - Physicianon 2021 ED Note - Physician Patient: ASHVIN RENE Age: 65 years Sex: FEMALE : 1955 Associated Diagnoses: General medical; Anemia; Peripheral edema; GI bleed Author: EVERTON NEGRON Basic Information Time seen: Date & time 08/06/2021 17:19:00. History source: Patient, EMS. Arrival mode: Ambulance. 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 [...] -Pharynx is pink and dry NECK: -Supple (hyph-ke-wgknb): non-tender. CARD: -Rate and rhythm: Regular -Edema: [...] was performed with patient's consent and nurse sales trainee Jessica in the room the entire time -External rectal exam reveals no abnormalities -Digital rectal exam reveals no masses or polyps within reach of my finger, stool guaiac is positive Medical Decision Making 55-year-old female presenting to the emergency department for evaluation of low blood pressure taken manually at senior living facility of 90/45 and possibility of looking [...] at this time. According to paperwork from senior living facility patient CODE STATUS is full code Results review: Lab results : Lab Flowsheet 08/06/2021 18:55 EST Troponin I High Sensitivity 21 pg/mL CRIT 08/06/2021 1 (more content not included)... Normal [facility] ED Note-Nursingon 08-06-2021 ED Note-Nursing patient did not want to come in. patient is from [facility], patient has a history of hypotension and she takes midodrine regularly. she also took zofran. nurse states arms and legs are weeping. nurse states skin is yellow. patient has c diff. nurse at [facility] did a wrist bloodpressure and it was 90/44, ems did a blood pressure and it was 144/90. patient states custodial is not giving me my blood pressure meds Normal [facility] Extra Pinkon 08-06-2021 Tube Collected Yes Invalid Interpretation Code [facility] Comment on above: Performed By: #### 7 739879, 31981645, 1604765, [id number] #### [facility] (DEFAULT) [address] [place] [address] Lactic Acidon 08-06-2021 Lactic Acid 16.2 mg/dL Normal 4.5-19.8 [facility] Comment on above: Performed By: #### 7 623195, 40687975, 6279157, 7977654874 #### [facility] (DEFAULT) [address] [place] [address] Lipaseon 08-06-2021 Lipase Level 20.0 IU/L Low 22.0-51.0 [facility] Comment on above: Performed By: #### 7 294914, 62028282, 8909428, [id number] #### [facility] (DEFAULT) [address] [place] [address] Magnesiumon 08-06-2021 Magnesium [Mass/Vol] 0.92 mg/dL Low 1.80-2.50 [facility] Comment on above: Performed By: #### 7 466052, 01071183, 9171356, [id number] #### [facility] (DEFAULT) [address] [place] [address] Morphologyon 08-06-2021 Aniso 1+ Normal [facility] Comment on above: Order Comment: Order added by Joselito. Performed By: #### 7 594103, 47233419, 4070132, [id number] #### [facility] (DEFAULT) [address] [place] [address] Hypochrom 1+ Normal [facility] Comment on above: Order Comment: Order added by Joselito. Performed By: #### 7 [id number], [id number], [id number], [id number] #### [facility] (DEFAULT) [address] [place] [address] Microcyte 1+ Normal [facility] Comment on above: Order Comment: Order added by Joselito. Performed By: #### 7 [id number], [id number], [id number], [id number] #### [facility] (DEFAULT) [address] [place] [address] RBC morphology finding Nom (Bld) See Morphology Normal [facility] Comment on above: Order Comment: Order added by Joselito. Performed By: #### 7 [id number], [id number], [id number], [id number] #### [facility] (DEFAULT) [address] [place] [address] RBC.on 08-06-2021 RBC. # of Units: 2 RBC Indication: Symptom Anemia Additional Units?: No Date Needed: 08/06/21 Red Cell Status: RBC Ready Normal [facility] Comment on above: Performed By: #### 1 [id number], [id number], [id number], [id number] #### [facility] (DEFAULT) [address] [place] [address] SARS-CoV-2 (COVID-19) PCRon 08-06-2021 Employed in healthcare? No Invalid Interpretation Code [facility] Comment on above: Performed By: #### 1 [id number], [id number], [id number], [id number] #### [facility] (DEFAULT) [address] [place] [address] Group care resident? Yes Invalid Interpretation Code [facility] Comment on above: Performed By: #### 1 [id number], [id number], [id number], [id number] #### [facility] (DEFAULT) [address] [place] [address] In ICU? Unknown Invalid Interpretation Code [facility] Comment on above: Performed By: #### 1 [id number], [id number], [id number], [id number] #### [facility] (DEFAULT) [address] [place] [address] status? Not Invalid Interpretation Code [facility] Comment on above: Performed By: #### 1 [id number], [id number], [id number], [id number] #### [facility] (DEFAULT) [address] [place] [address] SARS-CoV-2 (COVID-19) RNA JESSICA+probe Ql (Unsp spec) Detected Critically abnormal Not Detected [facility] Comment on above: Result Comment: Resu lts Called To MICAH Prince in ER By RR And Read Back For Confirmation On 08/06/2021 19:54:09 EST. Performed by PCR methodology. Performed By: #### 1 [id number], [id number], [id number], [id number] #### [facility] (DEFAULT) [address] [place] [address] SARS-CoV-2 (COVID-19) RNA JESSICA+probe Ql (Unsp spec) Unknown Invalid Interpretation Code [facility] Comment on above: Performed By: #### 1 [id number], [id number], [id number], [id number] #### [facility] (DEFAULT) [address] [place] [address] Symptomatic as defined by CDC? No Invalid Interpretation Code [facility] Comment on above: Performed By: #### 1 [id number], [id number], [id number], [id number] #### [facility] (DEFAULT) [address] [place] [address] TnI HSon 08-06-2021 Troponin I High Sensitivity 21 pg/mL Critically abnormal <=15 [facility] Comment on above: Result Comment: Elev ated hsTnI 21 result called and read back ok to: GELY OBRIEN ER at: 19:26:45 08/06/2021 by: RRUPPERT Male Baseline Delta 1Hr (Note pg/mL=ng/L) <20pg/mL 50-60% >20pg/mL 20% Female Baseline Delta 1Hr <15pg/mL 50-60% >15pg/mL 20% Other Baseline Delta 1Hr <18ng/mL 50-60% >18ng/mL 20% ([place] [employer] Guidelines February 2018) Performed By: #### 7 [id number], [id number], [id number], [id number] #### [facility] (DEFAULT) [address] [place] [address] Troponin I High Sensitivity 17 pg/mL Critically abnormal <=15 [facility] Comment on above: Result Comment: Elev ated hsTnI 17 result called and read back ok to: JESSICA AL RN IN ER at: 18:28:53 08/06/2021 by: RRUPPERT Male Baseline Delta 1Hr (Note pg/mL=ng/L) <20pg/mL 50-60% >20pg/mL 20% Female Baseline Delta 1Hr <15pg/mL 50-60% >15pg/mL 20% Other Baseline Delta 1Hr <18ng/mL 50-60% >18ng/mL 20% ([place] [employer] Guidelines February 2018) Performed By: #### 7 [id number], [id number], [id number], [id number] #### [facility] (DEFAULT) [address] [place] [address] XR Chest 1 View Frontalon XR Chest [...] DO 08/06/21 8:49 pm Technologist: RANDALL Barton [facility] KNEE RIGHT 3 VWSon KNEE RIGHT 3 [facility] Department of Radiology [address] [place] [address] Patient Name: ASHVIN RENE : 1955 Sex: F Age: Race: White Pt. Location: Patient Status: O Ordered Date: 01/01/2021 3:20:00 PM Completed Date: 01/01/2021 03:21 PM Requesting Provider: TIARA VÁZQUEZ Attending Provider: TIARA VÁZQUEZ Report Copy To: Signs & Symptoms: M25.561 Pain in right knee I10 History: Comments: Evaluate Exam: KNEE RIGHT 3 [facility] KNEE RIGHT 3 VWS 01/01/2021 3:21 PM [...] change Electronically signed: Tawana Andrade. Transcribed by: [email or web address], User Resident: Electronically Signed by: TAWANA ANDRADE @ 01/01/2021 08:57 PM Normal [facility] Comment on above: Order Comment: Evalu ate Basic Metabolic Panlon 12-08 Anion gap [Moles/Vol] 13 mmol/L Normal 9-18 [facility] Comment on above: Performed By: #### B MP ####[facility] [place], [place] [phone] Calcium [Mass/Vol] 7.1 mg/dL Low 8.5-10.2 [facility] Comment on above: Performed By: #### B MP ####[facility] [address] [place], [place] [phone] Chloride [Moles/Vol] 107 mmol/L High 97-105 [facility] Comment on above: Performed By: #### B MP ####[facility] [address] [place], [place] [phone] CO2 [Moles/Vol] 18 mmol/L Low 22-30 [facility] Comment on above: Performed By: #### B MP ####[facility] [address] [place], [place] [phone] Creatinine [Mass/Vol] 0.97 mg/dL High 0.58-0.96 [facility] Comment on above: Performed By: #### B MP ####[facility] [address] [place], [place] [phone] eGFR- Amer. >60 Normal [facility] Comment on above: Performed By: #### B MP ####[facility] [place], [place] [phone] eGFR-All Other Races 57 . Normal [facility] Comment on above: Result Comment: eGFR (Estimated [...] actual GFR. Performed By: #### B MP ####[address] [phone] Glucose [Mass/Vol] 79 mg/dL Normal 74-99 [facility] Comment on above: Result Comment: The [place] Diabetes Association (ADA) provides guidance for cutoff [...] Standards of Medical Care in Diabetes 2016, [place] [employer]. Diabetes Care. 2016.39(Suppl 1). Performed By: #### B MP ####[facility] [place], [place] [phone] Potassium [Moles/Vol] 4.4 mmol/L Normal 3.7-5.1 [facility] Comment on above: Performed By: #### B MP ####[facility] [place], [place] [phone] Sodium [Moles/Vol] 138 mmol/L Normal 136-144 [facility] Comment on above: Performed By: #### B MP ####[address] [phone] Urea nitrogen [Mass/Vol] 15 mg/dL Normal 7-21 [facility] Comment on above: Performed By: #### B MP ####[address] [phone] Coronavirus 2019on SARS-CoV-2 (COVID-19) RNA JESSICA+probe Ql (Unsp spec) Nasopharyngeal Swab Normal [facility] Comment on above: Performed By: #### C OVID ####[address] [phone] SARS-CoV-2 (COVID-19) RNA JESSICA+probe Ql (Unsp spec) Negative for COVID19 (SARS CoV2) by RT-PCR or equivalent method. Normal Negative for COVID19 (SARS CoV2) by RT-PCR or equivalent method. [facility] Comment on above: Result Comment: This test was developed and its performance characteristics determined by [facility]'s [facility] [place]. This test has been authorized by FDA under an Emergency Use Authorization (EUA). This test has been validated in accordance with the FDA's Guidance Document Policy for Diagnostics Testing in Laboratories Certified to Perform High Complexity Testing under CLIA prior to Emergency use Authorization for Coronavirus Disease 2019 during the Public Health Emergency issued on September 11, 2019. Test performed by [facility], [facility] [place], [address] [place], [place] [address]. Performed By: #### C OVID ####[address] [phone] CBCon 12-07-2020 Absolute nRBC <0.01 Normal <0.01 [facility] Comment on above: Performed By: #### C MP, CBC, PT ####[address] [phone] Erythrocyte distribution width (RBC) [Ratio] 15.1 % High 11.5-15.0 [facility] Comment on above: Performed By: #### C MP, CBC, PT ####[address] [phone] Hematocrit (Bld) [Volume fraction] 33.1 % Low 36.0-46.0 [facility] Comment on above: Performed By: #### C MP, CBC, PT ####[place] [phone] Hemoglobin (Bld) [Mass/Vol] 10.0 g/dL Low 11.5-15.5 [facility] Comment on above: Performed By: #### C MP, CBC, PT ####[place] [phone] MCH 31.9 pG Normal 26.0-34.0 [facility] Comment on above: Performed By: #### C MP, CBC, PT ####[place] [phone] MCHC (RBC) [Mass/Vol] 30.2 g/dL Low 30.5-36.0 [facility] Comment on above: Performed By: #### C MP, CBC, PT ####[place] [address] [place] [phone] MCV (RBC) [Entitic vol] 105.8 fL High 80.0-100.0 [facility] Comment on above: Performed By: #### C MP, CBC, PT ####[place] [phone] Platelet mean volume (Bld) [Entitic vol] 9.6 fL Normal 9.0-12.7 [facility] Comment on above: Performed By: #### C MP, CBC, PT ####[place] [address], [place] [phone] Platelets (Bld) [#/Vol] 256 10*3/uL Normal 150-400 [facility] Comment on above: Performed By: #### C MP, CBC, PT ####[place] [address], [place] [phone] RBC (Bld) [#/Vol] 3.13 10*6/uL Low 3.90-5.20 [facility] Comment on above: Performed By: #### C MP, CBC, PT ####[place] [address], [place] [phone] WBC (Bld) [#/Vol] 5.83 10*3/uL Normal 3.70-11.00 [facility] Comment on above: Performed By: #### C MP, CBC, PT ####[place] [address], [place] [phone] Comp Metabolic Panelon 12-07 Albumin [Mass/Vol] 3.1 g/dL Low 3.9-4.9 [facility] Comment on above: Performed By: #### C MP, CBC, PT ####[place] [address], [place] [phone] ALP [Catalytic activity/Vol] 34 U/L Normal 34-123 [facility] Comment on above: Performed By: #### C MP, CBC, PT ####[place] [address], [place] [phone] ALT [Catalytic activity/Vol] 16 U/L Normal 7-38 [facility] Comment on above: Performed By: #### C MP, CBC, PT ####[place] [address], [place] [phone] Anion gap [Moles/Vol] 8 mmol/L Low 9-18 [facility] Comment on above: Performed By: #### C MP, CBC, PT ####[place] [address] [place] [phone] AST [Catalytic activity/Vol] 16 U/L Normal 13-35 [facility] Comment on above: Performed By: #### C MP, CBC, PT ####[place] [address] [place] [place] [phone] Bilirubin [Mass/Vol] 0.2 mg/dL Normal 0.2-1.3 [facility] Comment on above: Performed By: #### C MP, CBC, PT ####[place] [address] [place] [place] [phone] Calcium [Mass/Vol] 8.4 mg/dL Low 8.5-10.2 [facility] Comment on above: Performed By: #### C MP, CBC, PT ####[place] [address] [place] [place] [phone] Chloride [Moles/Vol] 111 mmol/L High 97-105 [facility] Comment on above: Performed By: #### C MP, CBC, PT ####[place] [address] [place] [place] [phone] CO2 [Moles/Vol] 21 mmol/L Low 22-30 [facility] Comment on above: Performed By: #### C MP, CBC, PT ####[place] [address] [place] [phone] Creatinine [Mass/Vol] 1.16 mg/dL High 0.58-0.96 [facility] Comment on above: Performed By: #### C MP, CBC, PT ####[place] [address] [place] [phone] eGFR- Amer. 56 Normal [facility] Comment on above: Performed By: #### C MP, CBC, PT ####[place] [address] [place] [phone] eGFR-All Other Races 47 . Normal [facility] Comment on above: Result Comment: eGFR (Estimated [...] Performed By: #### C MP, CBC, PT ####[facility] [place], [place] [phone] Glucose [Mass/Vol] 96 mg/dL Normal 74-99 [facility] Comment on above: Result Comment: The [place] Diabetes Association (ADA) provides guidance for cutoff [...] Standards of Medical Care in Diabetes 2016, [place] Diabetes [employer]. Diabetes Care. 2016.39(Suppl 1). Performed By: #### C MP, CBC, PT ####[facility] [address] [place], [place] [phone] Potassium [Moles/Vol] 4.7 mmol/L Normal 3.7-5.1 [facility] Comment on above: Performed By: #### C MP, CBC, PT ####[facility] [place], [place] [phone] Protein [Mass/Vol] 5.0 g/dL Low 6.3-8.0 [facility] Comment on above: Performed By: #### C MP, CBC, PT ####[facility] [place], [place] [phone] Sodium [Moles/Vol] 140 mmol/L Normal 136-144 [facility] Comment on above: Performed By: #### C MP, CBC, PT ####[facility] [place], [place] [phone] Urea nitrogen [Mass/Vol] 22 mg/dL High 7- [facility] Comment on above: Performed By: #### C MP, CBC, PT ####[place] [address] [place], [place] [phone] Protimeon 12-07-2020 PT INR 1.2 Normal 0.9-1.3 [facility] Comment on above: Result Comment: Jenny min K Antagonist (VKA) Therapeutic Range: INR 2 to 3 (Target INR of 2.5) Note: For patients treated with VKA drugs, such as warfarin, the [place] [employer] 2012 Guideline recommends [...] Performed By: #### C MP, CBC, PT ####[facility] [place], [place] [phone] PT Sec 12.3 sec Normal 9.7-13.0 [facility] Comment on above: Performed By: #### C MP, CBC, PT ####[place] [address] [place], [place] [phone] Mirella 12-06-2020 JEFFREY Telephone (BIBI) -- ASHIVN RENE ([id number]) 1955 F Date Time Provider Department 12/06/20 [...] education topics: Arrival time/NPO Status/Medications/Travel INSTRUCTED ON [employer] RESTRICTIONS - 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 Instructions/Restrictions Patient/Family Response Evaluation: Verbalizes understanding Follow [...] 12/06/2020 Noted Resolved Coronary artery disease of ak chin artery of otilio*11/24/2020 S/P CABG (coronary artery bypass graft) [Z95.1] 11/24/2020 Pure hypercholesterolemia [E78.00] 11/24/2020 Type 2 diabetes mellitus without complication, *11/24/2020 Fatigue [R53.83] 11/24/2020 Encounter Status:Closed by COTY MORALES [facility] JEFFREY Telephone (DIOMEDES) -- ASHVIN RENE ([id number]) 1955 F Date Time Provider Department 11/28/20 [...] 11/29/2020 9:46 AM Signed Faxed orders to [phone] Kd Solitario 11/29/2020 12:22 PM Signed Patient called back and gave alternative fax # [phone] She would also like cath to be scheduled on 12/07. 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) [I25.118] Order(s):CARDIAC PAVING BLOCK CUTTER ORDER [5306089] Order #: [id number]: 1 INTERMEDIATE RAPID COVID [SQITCOVD] Order #: [id number] FUTURE COMP METABOLIC PANEL [SQCMP] Order #: [id number] FUTURE CBC [SQCBC] Order #: [id number] FUTURE LIPID PANEL BASIC [SQLIPB] Order #: [id number] FUTURE CK CREATINE KINASE [SQCK] Order #: [id number] FUTURE ECG COMPLETE [ECG01] Order #: [id number] FUTURE Prescriptions as of 11/28/2020 Sig: ACETAMINOPHEN [...] 11/28/2020 Noted Resolved 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 Nay Joseph MD 11/29/2020 7:54 AM Signed [facility] [place] [facility] Department of Cardiovascular Medicine SECTION OF INTERVENTIONAL CARDIOLOGY OUTPATIENT VISIT DATE November 23, 2020 OUTPATIENT VISIT TYPE NEW PRIMARY CARE PHYSICIAN: Tushar Solano Jr, DO ([facility]) [address] [facility] [place] [address] [place] [address] REFERRING PHYSICIAN: Waqas Mabry MD [address] [facility] [address] CHIEF COMPLAINT: No chief complaint on file. [...] resolved after CABG) 2015 CVA and (?) [place] 05/24/16 Echo ? Normal left ventricular end-diastolic [...] Lexiscan injection (more content not included)... Normal [facility] CNCOon 11-22-2020 CNCO Letter Text Normal [facility] CNPNon 11-22-2020 CNPN Telephone (CATHMN) -- ASHVIN RENE ([id number]) 1955 F Date Time Provider Department 11/22/20 NAY JOSEPH During your visit today, we recorded the following information about you: Kd Solitario 11/22/2020 3:54 PM Signed Urgent records request faxed to [phone] Allergies As of Date: 11/22/2020 (Not on File) Date Reviewed: Never Reviewed Reason for Visit: Request Outside Medical Records [3574] Problem List As Of Date: 11/22/2020 (None) Encounter Status:Closed by KD SOLITARIO on 11/22/20 [facility] 11-09-2020 CNPN Telephone (REFPHY) -- ASHVIN RENE ([id number]) 1955 F Date Time Provider Department 11/09/20 NO ONE (HISTORICAL) REFPHY During your visit today, we recorded the following information about you: Ashvin Quezada [facility] 11/09/2020 10:11 AM Signed Patient: Ashvin Clinton Date of : 1955 Patient phone number: [phone] Referring Provider for the encounter: Dr Waqas Mabry Requesting Provider: Cardiology Reason for requesting visit (RFV/signs and symptoms/diagnosis): 2nd Opinion - Severe CAD Person calling: caregiver: ERIC Return call to: self Medical Records/Insurance Card scanned into [employer]: Yes Comments: N/A Allergies As of Date: 11/09/2020 (Not on File) Date Reviewed: Never Reviewed Reason for Visit: External Referrals/resources [909] Problem List As Of Date: 11/09/2020 (None) Encounter Status:Closed by ASHVIN DIAZ on 11/09/20 Normal [facility] XA-CARDIAC CATHETERIZATION I MPORTon 10-25-2020 XA-CARDIAC CATHETERIZATION IMPORT Images were obtained outside of [facility] [id number] Normal [facility] Vital Signs Date Time Vital Sign Value Performing Clinician Facility 10-15-2023 14:00-0400 Heart rate 80 /min Jonathan Malas DO Work Phone: [facility] [employer] [facility] 10-15-2023 14:00-0400 Respiratory rate 15 /min Jonathan Malas DO Work Phone: [facility] [employer] [facility] 10-15-2023 14:00-0400 SaO2% (BldA) [Mass fraction] 95 % Jonathan Malas DO Work Phone: [facility] [employer] [facility] 10-15-2023 12:15-0400 Body temperature 98.6 [degF] Jonathan Malas DO Work Phone: [facility] [employer] [facility] 10-15-2023 12:15-0400 Diastolic blood pressure 78 mm[Hg] Greggem Malas DO Work Phone: [facility] [employer] [facility] 10-15-2023 12:15-0400 Systolic blood pressure 121 mm[Hg] Jonathan Malas DO Work Phone: [facility] [employer] [facility] 10-14-2023 05:00-0400 Body mass index (BMI) [Ratio] 27.66 kg/m2 Jonathan Malas DO Work Phone: [facility] [employer] [facility] 10-14-2023 05:00-0400 Body weight 68.6 kg Jonathan Malas DO Work Phone: [facility] [employer] [facility] 10-13-2023 11:21-0400 Body height 157.5 cm Jonathan Malas DO Work Phone: [facility] [employer] [facility] 08-21-2023 14:09-0500 Body temperature 97.9 [degF] Dwain Mills DPM Work Phone: [facility] 08-21-2023 14:09-0500 Diastolic blood pressure 62 mm[Hg] Dwain Mills DPM Work Phone: [facility] 08-21-2023 14:09-0500 Heart rate 84 /min Dwain Mills DPM Work Phone: [facility] 08-21-2023 14:09-0500 Systolic blood pressure 145 mm[Hg] Dwain Mills DPM Work Phone: [facility] 08-06-2023 16:00-0500 Diastolic blood pressure 65 mm[Hg] [facility] 08-06-2023 16:00-0500 Heart rate 80 /min [facility] 08-06-2023 16:00-0500 Respiratory rate 16 /min [facility] 08-06-2023 16:00-0500 SaO2% (BldA) [Mass fraction] 100 % [facility] 08-06-2023 16:00-0500 Systolic blood pressure 107 mm[Hg] [facility] 08-06-2023 12:48-0500 Inhaled oxygen flow rate 3 L/min [facility] 08-06-2023 11:08-0500 Body height 157.48 cm [facility] 08-06-2023 11:08-0500 Body weight 63.04 kg [facility] 08-04-2023 10:45-0500 Body height 160.66 cm Jolie De Luna Other [facility] [employer] Other 08-04-2023 10:45-0500 Body mass index (BMI) [Ratio] 24.43 kg/m2 Jolie De Luna Other [facility] [employer] Other 08-04-2023 10:45-0500 Body temperature 97.8 [degF] Jolie De Luna Other [employer] Other 08-04-2023 10:45-0500 Body weight 63.05 kg Jolie De Luna Other [employer] Other 08-04-2023 10:45-0500 Diastolic blood pressure 64 mm[Hg] Jolie De Luna Other [employer] Other 08-04-2023 10:45-0500 SaO2% (BldA) [Mass fraction] 98 % Jolie De Luna Other [employer] Other 08-04-2023 10:45-0500 Systolic blood pressure 110 mm[Hg] Jolie De Luna Other [employer] Other 06-25-2023 11:16-0500 Body height 157.5 cm Norman Braga MD Work Phone: [employer] 06-25-2023 11:16-0500 Body mass index (BMI) [Ratio] 25.79 kg/m2 Norman Braga MD Work Phone: [employer] 06-25-2023 11:16-0500 Body temperature 98.2 [degF] Norman Braga MD Work Phone: [employer] 06-25-2023 11:16-0500 Body weight 63.96 kg Norman Braga MD Work Phone: [employer] 05-20-2022 11:05-0500 Body height 160.66 cm Virginia Marti Other [employer] Other 05-20-2022 11:05-0500 Body mass index (BMI) [Ratio] 21.09 kg/m2 Virginia Marti Other [employer] Other 05-20-2022 11:05-0500 Body temperature 97.3 [degF] Virginia Marti Other [employer] Other 05-20-2022 11:05-0500 Body weight 54.43 kg Virginia Marti Other [employer] [employer] Other 05-20-2022 11:05-0500 Diastolic blood pressure 66 mm[Hg] Virginia Marti Other [employer] Other 05-20-2022 11:05-0500 Respiratory rate 18 /min Virginia Marti Other [employer] Other 05-20-2022 11:05-0500 SaO2% (BldA) [Mass fraction] 100 % Virginia Marti Other [employer] Other 05-20-2022 11:05-0500 Systolic blood pressure 112 mm[Hg] Virginia Marti Other [employer] Other 04-12-2021 15:45-0400 Body height 160.66 cm Antonio Julio Other [employer] Other 04-12-2021 15:45-0400 Body mass index (BMI) [Ratio] 25.3 kg/m2 Antonio Kim Other [employer] Other 04-12-2021 15:45-0400 Body weight 65.32 kg Antonio Kim Other [employer] Other 09-09-2019 10:00-0500 BP Diastolic 80 mm[Hg] [facility] 09-09-2019 10:00-0500 BP Systolic 138 mm[Hg] [facility] 09-09-2019 10:00-0500 Pulse (Heart Rate) 80 /min [facility] 09-09-2019 10:00-0500 Pulse Oximetry 96 % Tushar Russ [facility] 09-09-2019 10:00-0500 Respiratory Rate 16 /min [facility] 09-09-2019 08:20-0500 BMI (Body Mass Index) 25 kg/m2 [facility] 09-09-2019 08:20-0500 Body weight 63.95 kg [facility] 09-09-2019 08:20-0500 Height 160.02 cm [facility] 09-09-2019 07:10-0500 Body Temperature 97.9 [degF] Tushar [facility] 08-12-2019 09:55-0500 BP Diastolic 73 mm[Hg] [facility] 08-12-2019 09:55-0500 BP Systolic 132 mm[Hg] [facility] 08-12-2019 09:55-0500 Pulse (Heart Rate) 86 /min [facility] 08-12-2019 09:55-0500 Pulse Oximetry 97 % [facility] 08-12-2019 09:55-0500 Respiratory Rate 16 /min [facility] 08-12-2019 08:47-0500 BMI (Body Mass Index) 25.2 kg/m2 [facility] 08-12-2019 08:47-0500 Body weight 63.5 kg [facility] 08-12-2019 08:47-0500 Height 158.75 cm [facility] 08-12-2019 07:27-0500 Body Temperature 98.8 [degF] [facility] Encounters Encounter Date Encounter Type Care Provider Facility Start: 02-17-2024 End: 02-17-2024 ambulatory TRUNG FLORES Not Available Start: 10-23-2023 End: 10-23-2023 ambulatory MARIAMA INGRAM [facility] Start: 10-13-2023 ambulatory TUSHAR SOLANO [facility] Start: 10-13-2023 End: 10-15-2023 [facility] Start: 10-12-2023 End: 10-15-2023 Evaluation and management of inpatient Jonathan Pizarro DO Work Phone: 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) Start: 09-09-2023 End: 09-09-2023 ambulatory DWAIN MILLS Not Available Start: 08-22-2023 Telephone encounter Alida Holder [facility] Comment on above: Santyl Start: 08-21-2023 Bamboo flowsheet Dwain moore DPM Work Phone: [facility] Start: 08-21-2023 Bamboo flowsheet Dwain Rea tz DPM Work Phone: [facility] Start: 08-21-2023 End: 08-21-2023 Office outpatient visit 15 minutes Dwain Mills DPM Work Phone: [facility] Comment on above: 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); Gangrene (CMS/HCC); Pain in toe of right foot; Arteriosclerosis of arteries of extremities (CMS/HCC) Start: 08-21-2023 End: 08-21-2023 ambulatory DWAIN MILLS Not Available Start: 08-07-2023 End: 08-07-2023 ambulatory DWAIN MILLS Not Available Start: 08-06-2023 End: 08-06-2023 ambulatory Tushar Solano Facility:[facility] Start: 08-06-2023 Non-patient / Non-visit [facility] Work Phone: Start: 08-04-2023 End: 08-04-2023 ambulatory Jolie De Luna Other [employer] Other Start: 08-04-2023 FQ visit new patient Jolie harkins [facility] Start: 07-24-2023 End: 07-24-2023 ambulatory DWAIN MILLS Not Available Start: 06-25-2023 ambulatory NORMAN BRAGA [facility] Start: 06-25-2023 End: 06-25-2023 Office outpatient new 45 minutes Norman Braga MD Work Phone: [facility] Comment on above: Left knee pain, unsp ecified chronicity (Primary Dx) Start: 06-25-2023 End: 06-25-2023 Subsequent hospital visit by physician Norman Braga MD Work Phone: [facility] Start: 10-15-2022 End: 10-16-[address] TUSHAR SOLANO Facility:[facility] Start: 07-16-2022 End: 07-17-[address] TUSHAR SOLANO Facility:[facility] Start: 06-14-2022 End: 06-15-[address] TUSHAR SOLANO Facility:[facility] Start: 05-20-2022 Office outpatient vi sit 15 minutes Virginia Marti [facility] Start: 05-20-2022 End: 05-20-2022 ambulatory JR Tushar Solano Work Phone: [facility] Work Phone: Start: 05-20-2022 End: 05-20-2022 Patient encounter procedure JR Tushar Solano Work Phone: [facility] Start: 06-11-2021 End: 06-11-2021 ambulatory Antonio Kim Other [employer] Other Start: 06-11-2021 Telephone encounter Antonio Cardenas ck [facility] Start: 04-12-2021 Office outpatient ne w 45 minutes Antonio Kim [facility] Start: 11-09-2020 End: 11-09-2020 Telephone encounter No One (Historical) Referring Physician Comment on above: External Referrals/r esources Start: 09-09-2019 End: 09-09-2019 [facility] to [facility] Start: 08-12-2019 End: 08-12-2019 Admission to [facility] Procedures Date Procedure Procedure Detail Performing Clinician Start: 10-23-2023 Follow-up visit Follow-up MARIAMA Víctor BETTSE Start: 10-15-2023 Assay of magnesium Nikolas Rodriguez DIAGNOSTIC SALES SPECIALIST-ANALOG CIRCUIT DESIGNER Work Phone: Start: 10-15-2023 Radiologic exam chest single view Kallie Roman MD Work Phone: Start: 10-15-2023 Basic metabolic panel calcium total Hazem Malas DO Work Phone: Start: 10-14-2023 Calcium ionized Parul Holder Jeb DIAGNOSTIC SALES SPECIALIST-ANALOG CIRCUIT DESIGNER Work Phone: Start: 10-14-2023 Lipid panel Kristyn Avila MD Work Phone: Start: 10-14-2023 Calcium ionized Parul Holder Jeb DIAGNOSTIC SALES SPECIALIST-ANALOG CIRCUIT DESIGNER Work Phone: Start: 10-14-2023 Cardiac catheterization Obdulia Grove MD Work Phone: Start: 10-14-2023 Basic metabolic panel calcium total Parul Holder Jeb DIAGNOSTIC SALES SPECIALIST-ANALOG CIRCUIT DESIGNER Work Phone: Start: 10-14-2023 Ecg routine ecg w/least 12 lds trcg only w/o i&r Parul Holder Jeb DIAGNOSTIC SALES SPECIALIST-ANALOG CIRCUIT DESIGNER Work Phone: Start: 10-13-2023 Calcium ionized Parul R Jeb DIAGNOSTIC SALES SPECIALIST-ANALOG CIRCUIT DESIGNER Work Phone: Start: 10-13-2023 Heparin assay Parul Holder Jeb DIAGNOSTIC SALES SPECIALIST-ANALOG CIRCUIT DESIGNER Work Phone: Start: 10-13-2023 Calcium ionized Hazem Malas DO Work Phone: Start: 10-13-2023 Echo tthrc r-t 2d w/wom-mode compl spec&colr d Parul Hassann DIAGNOSTIC SALES SPECIALIST-ANALOG CIRCUIT DESIGNER Work Phone: Start: 10-13-2023 Potassium serum plasma/whole blood Jonathan Pizarro DO Work Phone: Start: 10-13-2023 Basic metabolic panel calcium total Parul Gallo Jeb DIAGNOSTIC SALES SPECIALIST-ANALOG CIRCUIT DESIGNER Work Phone: Start: 10-13-2023 Basic metabolic panel calcium total Parul Mcdowellfern DIAGNOSTIC SALES SPECIALIST-ANALOG CIRCUIT DESIGNER Work Phone: Start: 10-13-2023 Ecg routine ecg w/least 12 lds trcg only w/o i&r Parul Mcdowellfern DIAGNOSTIC SALES SPECIALIST-ANALOG CIRCUIT DESIGNER Work Phone: Start: 10-12-2023 Gluc bld gluc mntr dev cleared fda spec home use Jonathan Pizarro DO Work Phone: Start: 05-20-2022 Plain X-ray of right hand JR Tushar ricketts Work Phone: Start: 10-19-2020 History of coronary artery bypass grafting History of coronary artery bypass surgery Dwain Mills DPTessy Work Phone: Start: 09-09-2019 Phacoemulsification of cataract with intraocular lens implantation Tusahr Russ Start: 08-12-2019 Phacoemulsification of cataract with intraocular lens implantation Tushar Robersonliliam Plan of Treatment Date Care Activity Detail Author Start: 05-20-2032 DTaP,Tdap and Td Vac cines (2 - Td or Tdap) DTaP,Tdap and Td Vaccines (2 - Td or Tdap) [facility] Start: 05-20-2032 Tetanus vaccination TETANUS [facility] Start: 05-19-2024 Adult BMI Screening Adult BMI Screen ing [facility] Start: 05-19-2024 Tobacco Screening Tobacco Screening [facility] Start: 11-13-2023 End: 11-13-2023 Patient encounter procedure 11/13/2023 2:30 PM EDT Office Visit [facility] [address] [place] [id number] Bernice Davis MD [address] [place] [address] [facility] Start: 10-16-2023 End: 10-16-2023 Patient encounter procedure 10/16/2023 1:30 PM EDT Office Visit [facility] [address] [facility] [address] [place] [address] Genet Small, DO [address] [facility] [address] [place] [address] [facility] Start: 09-09-2023 End: 09-09-2023 Patient encounter procedure 09/09/2023 10:15 AM EST Office Visit [facility] [address] [place] [phone] Dwain Mills, DPM [address] [place] [address] [facility] Start: 08-21-2023 End: 08-21-2023 Patient encounter procedure 08/21/2023 2:00 PM EST Office Visit [facility] [address] [place] [phone] Dwain Mills, DPM [address] [place] [address] Arrived [facility] Comment on above: Arrived Start: 08-06-2023 [facility] Start: 03-14-2023 Influenza vaccination A [facility] Start: 2018 Fall Risk Screening Fall Risk Screen ing [facility] Start: 2018 Pneumococcal vaccination PNEUM OCOCCAL VACCINE SERIES (2 - PCV) [facility] Start: 11-20-2003 Administration of varicella zoster vaccine Zoster (Shingles) Vaccine (1 of 2) [facility] Start: 11-20-2003 Zoster vaccine hzv l pool for subcutaneous use ZOSTER (SHINGLES) VACCINE (1 of 2) [facility] Start: 1998 Screening for malign ant neoplasm of colon COLORECTAL CANCER SCREENING DISCUSSION [facility] Start: 1993 Lipid panel LIPID SCREENING [facility] Start: 1993 Screening for malign ant neoplasm of breast MAMMOGRAM SCREENING DISCUSSION [facility] Start: 1974 Screening for malign ant neoplasm of cervix CERVICAL CANCER SCREENING DISCUSSION [facility] Start: 1972 Third diphtheria, te tanus and acellular pertussis (DTaP) vaccination TDAP (ADULT) [facility] Start: 11-20-1971 Adult BMI Follow Up Plan Adult BMI Follow Up Plan [facility] Start: 1965 Depression Screening Depression Scre ening [facility] Start: 05-22-1954 COVID-19 VACCINE (#1) COVID-19 VACCI NE (#1) [facility] Start: 1953 Hepatitis C screening HEPATITI S C VIRUS SCREENING [facility] Start: 1953 Medicare Annual Well ness Visit Medicare Annual Wellness Visit [facility] Start: 1953 Screening for osteoporosis DEXA SCAN DISCUSSION [facility] Start: 1953 Thyroid stimulating hormone measurement TSH [facility] Patient Education Atherectomy - Angioplasty of a Noncoronary Vessel Arteriogram (DC) [facility] Work Phone: Patient referral [facility] Rad[facility] for bone length studies XR BONE LENGTH STUDY Imaging Routine Left knee pain, unspecified chronicity 06/25/2023 10:28 AM [facility] Work Phone: XR Knee - left 4 Views XR KNEE L EFT 4+ VIEWS Imaging Routine Left knee pain, unspecified chronicity 06/25/2023 10:28 AM [facility] Immunizations Immunization Date Immunization Notes Care Provider Joe silva 05-20-2022 tetanus and diphther ia toxoids, adsorbed, preservative free, for adult use (5 Lf of tetanus toxoid and 2 Lf of diphtheria toxoid) Virginia Marti Other [facility] 05-21-2018 Seasonal trivalent influenza vaccine, adjuvanted, preservative free Cheikh Rain [facility] 05-21-2018 influenza virus vaccine, unspecified formulation Norman Braga MD Work Phone: [facility] 09-12-2014 pneumococcal polysaccharide vaccine, 23 valent Jaclin Rain [facility] NEGATED: Highlighted row has not occurred!02-16-2023 pneumococcal conjugate vaccine, 13 valent Jaclin Rain [facility] Payers Date Payer Category Payer Self-pay [id number] 2022 Medicare [id number] 2020 Unknown [employer] [id number] 2020-Present Indemnity [id number] 2018 Medicare MEDICARE MEDICAR E A AND B [id number] 2018-Present [place] Medicare [id number] 1959 Medicare [id number] 1959 Unknown [id number] 1959 Unknown [id number] 1953 Unknown [id number] 1953 Unknown [id number] [id number] 1953 Unknown [id number] [id number] 1953 Unknown [id number] [id number] 1953 Unknown [id number] [id number] 1953 Unknown [id number] 2.16.840.1.975423.3.579.2.128 6 1953 Unknown [id number] 2.16.840.1.500301.3.579.2.128 6 1953 Unknown [id number] [id number] 6 1953 Unknown [id number] 2.16.840.1.567224.3.579.2.128 6 1953 Unknown [id number] 2.16.840.1.153902.3.579.2.125 9 1953 Unknown [id number] 2.16.840.1.577708.3.579.2.125 9 1953 Unknown [id number] 2.16.840.1.143112.3.579.2.125 9 1953 Unknown [id number] 2.16.840.1.900353.3.579.2.125 9 1953 Unknown [id number] [id number]5 9 Unknown [id number] Unknown [id number] [id number] Unknown [id number] Social History Date Type Detail Facility Start: 06-18-2016 End: 09-09-2019 Tobacco smoking status NHIS Never smoked tobacco (finding) [facility] Start: 1955 Sex Assigned At Female F [facility] Start: 1955 Sex Assigned At Not on file [facility] Start: 08-24-2020 End: 06-25-2023 Sex Assigned At [facility] Watson Brown Other Start: 06-18-2016 End: 06-25-2023 Tobacco use and exposure [facility]ok[facility] Start: 08-24-2020 End: 06-25-2023 History of Social function Last Size [facility] Start: 08-07-2023 End: 08-21-2023 Alcohol intake Lifetime non-drinker (finding) [facility] Start: 05-19-2023 End: 10-15-2023 Alcohol intake Current non-drinker of alcohol (finding) [facility] Unknown [facility] Has the [employer], [employer], [employer], or water company threatened to shut off services in your home in past 12Mo No [facility] How often to you hav e a drink containing alcohol? Never [facility] Medical Equipment Procedure Code Equipment Code Equipment Origin al Text Equipment Identifier Dates Phacoemulsification of cataract with intraocular lens implantation [id number] FDA Start: 08-12-2019 Phacoemulsification of cataract with intraocular lens implantation Posterior-chamber intraocular lens, pseudophakic ()[id number] FDA Start: 09-09-2019 Loop Recorder Karina schuler Mdtr - [id number] - [id number] Start: 05-24-2016 System Cor Stnt 3.0mm X 12mm 145cm [employer] Harry - [id number] FDA Start: 02-15-2023 Goals Date Patient [...] Description: INTERVENTIONS: 1. Encourage patient or legal insurance service representative to report early pain and ask [...] per policy 9. Teach patient or legal insurance service representative interventions for comforting Outcome: Progressing Note: [...] at the bedside 7. Instruct patient/ patient insurance service representative about use of safety devices 8. Include patient/ patient insurance service representative in decisions related to safety Outcome: [...] hygiene technique 7. Identify and instruct patient/patient insurance service representative in use of appropriate isolation precautions for identified infection/symptoms 8. Provide and discuss with patient/patient insurance service representative on educational MDRO sheet 9. Encourage and monitor nutritional status daily and consult cottage master if indicated 10. Implement neutropenic guidelines as needed 11. Review exposure to history of communicable disease and recent travel history on admission 12. Encourage annual influenza vaccine 13. Encourage pneumonia vaccine Outcome: Progressing Note: Evaluation of progress towards goal: Patient remains free from infection due to hospitalization. Patient remains afebrile at this time. Problem: Knowledge Deficit Goal: Patient/patient insurance service representative demonstrates understanding of disease process, treatment plan, medications, and discharge instructions Description: INTERVENTIONS 1. Complete learning assessment and assess knowledge base 2. Provide teaching at level of understanding 3. Provide teaching via preferred learning method(s) Outcome: Progressing Note: Evaluation of progress towards goal: Patient demonstrates understanding of plan of care and treatment plan at this time. [facility] 10-15-2023 Miscellaneous Notes Problem: Pain Goal: Patient goal is pain score less than 4, able to rest, and participant in treatment plan as appropriate Description: INTERVENTIONS: 1. Encourage patient or legal insurance service representative to report early pain and ask [...] per policy 9. Teach patient or legal insurance service representative interventions for comforting Outcome: Progressing Note: [...] at the bedside 7. Instruct patient/ patient insurance service representative about use of safety devices 8. Include patient/ patient insurance service representative in decisions related to safety Outcome: [...] hygiene technique 7. Identify and instruct patient/patient insurance service representative in use of appropriate isolation precautions for identified infection/symptoms 8. Provide and discuss with patient/patient insurance service representative on educational MDRO sheet 9. Encourage and monitor nutritional status daily and consult cottage master if indicated 10. Implement neutropenic guidelines as needed 11. Review exposure to history of communicable disease and recent travel history on admission 12. Encourage annual influenza vaccine 13. Encourage pneumonia vaccine Outcome: Progressing Note: Evaluation of progress towards goal: Patient remains free from infection due to hospitalization. Patient remains afebrile at this time. Problem: Knowledge Deficit Goal: Patient/patient insurance service representative demonstrates understanding of disease process, treatment [...] Description: INTERVENTIONS: 1. Encourage patient or legal insurance service representative to report early pain and ask [...] per policy 9. Teach patient or legal insurance service representative interventions for comforting Outcome: Progressing Note: [...] at the bedside 7. Instruct patient/ patient insurance service representative about use of safety devices 8. Include patient/ patient insurance service representative in decisions related to safety Outcome: [...] hygiene technique 7. Identify and instruct patient/patient insurance service representative in use of appropriate isolation precautions for identified infection/symptoms 8. Provide and discuss with patient/patient insurance service representative on educational MDRO sheet 9. Encourage and monitor nutritional status daily and consult cottage master if indicated 10. Implement neutropenic guidelines as needed 11. Review exposure to history of communicable disease and recent travel history on admission 12. Encourage annual influenza vaccine 13. Encourage pneumonia vaccine Outcome: Progressing Note: Evaluation of progress towards goal: Pt afebrile and no outward signs of infection during shift. Problem: Knowledge Deficit Goal: Patient/patient insurance service representative demonstrates understanding of disease process, treatment [...] develop effective communication strategies 4. Include patient/patient insurance service representative in decisions related to communication Outcome: [...] Collaborate with ancillary departments 14. Include patient/patient insurance service representative in decisions related to anxiety Outcome: [...] 6. Collaborate with pastoral/spiritual care, social work program coordinator, mental health counselor as needed. 7. Instruct patient on diversional activities such as physical activity, distraction, and deep breathing exercises to assist with coping 8. Involve patient's insurance service representative in care Outcome: Progressing Note: Evaluation [...] supplement as ordered 13. Collaborate with clinical cottage master 14. Include patient/ patient's insurance service representative in decisions related to nutrition Outcome: [...] Score of =/> 25 or indicated by [facility] Assessment Goal: Patient should be free from fall Description: Interventions: 1. [place] to environment 2. Hourly rounds addressing the [...] non-skid footwear 11. Teach patient and patient insurance service representative to maintain environment for safety and [...] (cane, walker) within reach 19. Request patient insurance service representative bring adaptive equipment/mobility aids from home or obtain and provide as needed 20. Consult pharmacy regarding effects of med's affecting mobility, cognition, and alternatives 21. Obtain physician order for PT if risk factors associated with mobility are present 22. Obtain physician order for OT as appropriate 23. Utilize diversional activities 24. Educate patient and patient insurance service representative how to maintain a safe environment during visitation times (notify nurse prior to leaving bedside) 25. Consider appropriateness of medical or non-medical record transcriber 26. Set up voiding schedule as appropriate (every 2 hours) Outcome: Progressing Note: Evaluation of progress towards goal: No signs of falls during shift. Problem: Pain Goal: Patient goal is pain score less than 4, able to rest, and participant in treatment plan as appropriate Description: INTERVENTIONS: 1. Encourage patient or legal insurance service representative to report early pain and ask [...] per policy 9. Teach patient or legal insurance service representative interventions for comforting Outcome: Progressing Note: [...] at the bedside 7. Instruct patient/ patient insurance service representative about use of safety devices 8. Include patient/ patient insurance service representative in decisions related to safety Outcome: [...] hygiene technique 7. Identify and instruct patient/patient insurance service representative in use of appropriate isolation precautions for identified infection/symptoms 8. Provide and discuss with patient/patient insurance service representative on educational MDRO sheet 9. Encourage and monitor nutritional status daily and consult cottage master if indicated 10. Implement neutropenic guidelines as needed 11. Review exposure to history of communicable disease and recent travel history on admission 12. Encourage annual influenza vaccine 13. Encourage pneumonia vaccine Outcome: Progressing Note: Evaluation of progress towards goal: Pt is afebrile at this time. Problem: Knowledge Deficit Goal: Patient/patient insurance service representative demonstrates understanding of disease process, treatment [...] Score of =/> 25 or indicated by [facility] Assessment Goal: Patient should be free from fall Description: Interventions: 1. [place] to environment 2. Hourly rounds addressing the [...] non-skid footwear 11. Teach patient and patient insurance service representative to maintain environment for safety and [...] (cane, walker) within reach 19. Request patient insurance service representative bring adaptive equipment/mobility aids from home or obtain and provide as needed 20. Consult pharmacy regarding effects of med's affecting mobility, cognition, and alternatives 21. Obtain physician order for PT if risk factors associated with mobility are present 22. Obtain physician order for OT as appropriate 23. Utilize diversional activities 24. Educate patient and patient insurance service representative how to maintain a safe environment during visitation times (notify nurse prior to leaving bedside) 25. Consider appropriateness of medical or non-medical record transcriber 26. Set up voiding schedule as appropriate (every 2 hours) Outcome: Progressing Note: Evaluation of progress towards goal: Pt is free from falls at this time. Pre Procedure Evaluation: H&P was reviewed and the patient was examined. No change has occurred in the patient's condition since the H&P was completed. 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 Rib Chopper Visit: ACS > 24hrs Chest Pain Symptom [...] Description: INTERVENTIONS: 1. Encourage patient or legal insurance service representative to report early pain and ask [...] per policy 9. Teach patient or legal insurance service representative interventions for comforting Outcome: Progressing Note: [...] at the bedside 7. Instruct patient/ patient insurance service representative about use of safety devices 8. Include patient/ patient insurance service representative in decisions related to safety Outcome: [...] hygiene technique 7. Identify and instruct patient/patient insurance service representative in use of appropriate isolation precautions for identified infection/symptoms 8. Provide and discuss with patient/patient insurance service representative on educational MDRO sheet 9. Encourage and monitor nutritional status daily and consult cottage master if indicated 10. Implement neutropenic guidelines as needed 11. Review exposure to history of communicable disease and recent travel history on admission 12. Encourage annual influenza vaccine 13. Encourage pneumonia vaccine Outcome: Progressing Note: Evaluation of progress towards goal: Patient afebrile and WBC of 5.3. Will continue to monitor for signs of infection Problem: Knowledge Deficit Goal: Patient/patient insurance service representative demonstrates understanding of disease process, treatment [...] develop effective communication strategies 4. Include patient/patient insurance service representative in decisions related to communication Outcome: [...] supplement as ordered 13. Collaborate with clinical cottage master 14. Include patient/ patient's insurance service representative in decisions related to nutrition Outcome: Progressing Note: Evaluation of progress towards goal: Collaborating with interdisciplinary team to ensure adequate nutritional intake. Problem: Moderate - High Risk Fall Score Description: Beal Fall Score of =/> 25 or indicated by [facility] Assessment Goal: Patient should be free from fall Description: Interventions: 1. [place] to environment 2. Hourly rounds addressing the [...] non-skid footwear 11. Teach patient and patient insurance service representative to maintain environment for safety and [...] (cane, walker) within reach 19. Request patient insurance service representative bring adaptive equipment/mobility aids from home or obtain and provide as needed 20. Consult pharmacy regarding effects of med's affecting mobility, cognition, and alternatives 21. Obtain physician order for PT if risk factors associated with mobility are present 22. Obtain physician order for OT as appropriate 23. Utilize diversional activities 24. Educate patient and patient insurance service representative how to maintain a safe environment during visitation times (notify nurse prior to leaving bedside) 25. Consider appropriateness of medical or non-medical record transcriber 26. Set up voiding schedule as appropriate [...] Description: INTERVENTIONS: 1. Encourage patient or legal insurance service representative to report early pain and ask [...] per policy 9. Teach patient or legal insurance service representative interventions for comforting Outcome: Progressing Note: [...] at the bedside 7. Instruct patient/ patient insurance service representative about use of safety devices 8. Include patient/ patient insurance service representative in decisions related to safety Outcome: [...] hygiene technique 7. Identify and instruct patient/patient insurance service representative in use of appropriate isolation precautions for identified infection/symptoms 8. Provide and discuss with patient/patient insurance service representative on educational MDRO sheet 9. Encourage and monitor nutritional status daily and consult cottage master if indicated 10. Implement neutropenic guidelines as needed 11. Review exposure to history of communicable disease and recent travel history on admission 12. Encourage annual influenza vaccine 13. Encourage pneumonia vaccine Outcome: Progressing Note: Evaluation of progress towards goal: Pt is afebrile at this time. Problem: Knowledge Deficit Goal: Patient/patient insurance service representative demonstrates understanding of disease process, treatment [...] Score of =/> 25 or indicated by [facility] Assessment Goal: Patient should be free from fall Description: Interventions: 1. [place] to environment 2. Hourly rounds addressing the [...] non-skid footwear 11. Teach patient and patient insurance service representative to maintain environment for safety and [...] (cane, walker) within reach 19. Request patient insurance service representative bring adaptive equipment/mobility aids from home or obtain and provide as needed 20. Consult pharmacy regarding effects of med's affecting mobility, cognition, and alternatives 21. Obtain physician order for PT if risk factors associated with mobility are present 22. Obtain physician order for OT as appropriate 23. Utilize diversional activities 24. Educate patient and patient insurance service representative how to maintain a safe environment during visitation times (notify nurse prior to leaving bedside) 25. Consider appropriateness of medical or non-medical record transcriber 26. Set up voiding schedule as appropriate [...] Description: INTERVENTIONS: 1. Encourage patient or legal insurance service representative to report early pain and ask [...] per policy 9. Teach patient or legal insurance service representative interventions for comforting Outcome: Progressing Note: [...] at the bedside 7. Instruct patient/ patient insurance service representative about use of safety devices 8. Include patient/ patient insurance service representative in decisions related to safety Outcome: [...] hygiene technique 7. Identify and instruct patient/patient insurance service representative in use of appropriate isolation precautions for identified infection/symptoms 8. Provide and discuss with patient/patient insurance service representative on educational MDRO sheet 9. Encourage and monitor nutritional status daily and consult cottage master if indicated 10. Implement neutropenic guidelines as needed 11. Review exposure to history of communicable disease and recent travel history on admission 12. Encourage annual influenza vaccine 13. Encourage pneumonia vaccine Outcome: Progressing Note: Evaluation of progress towards goal: Pt afebrile and no outward signs of infection during shift. Problem: Knowledge Deficit Goal: Patient/patient insurance service representative demonstrates understanding of disease process, treatment [...] develop effective communication strategies 4. Include patient/patient insurance service representative in decisions related to communication Outcome: [...] Collaborate with ancillary departments 14. Include patient/patient insurance service representative in decisions related to anxiety Outcome: [...] 6. Collaborate with pastoral/spiritual care, social work program coordinator, mental health counselor as needed. 7. Instruct patient on diversional activities such as physical activity, distraction, and deep breathing exercises to assist with coping 8. Involve patient's insurance service representative in care Outcome: Progressing Note: Evaluation [...] supplement as ordered 13. Collaborate with clinical cottage master 14. Include patient/ patient's insurance service representative in decisions related to nutrition Outcome: [...] Score of =/> 25 or indicated by [facility] Assessment Goal: Patient should be free from fall Description: Interventions: 1. [place] to environment 2. Hourly rounds addressing the [...] non-skid footwear 11. Teach patient and patient insurance service representative to maintain environment for safety and [...] (cane, walker) within reach 19. Request patient insurance service representative bring adaptive equipment/mobility aids from home or obtain and provide as needed 20. Consult pharmacy regarding effects of med's affecting mobility, cognition, and alternatives 21. Obtain physician order for PT if risk factors associated with mobility are present 22. Obtain physician order for OT as appropriate 23. Utilize diversional activities 24. Educate patient and patient insurance service representative how to maintain a safe environment during visitation times (notify nurse prior to leaving bedside) 25. Consider appropriateness of medical or non-medical record transcriber 26. Set up voiding schedule as appropriate (every 2 hours) Outcome: Progressing Note: Evaluation of progress towards goal: No signs of falls during shift. documented in this encounter [facility] [employer] [facility] 10-15-2023 Hospital course Narrative Inpatient Discharge Summary BRIEF OVERVIEW Admitting Provider: Jonathan Pizarro DO Discharge Provider: Jonathan Pizarro DO Primary Care Physician at Discharge: TUSHAR SOLANO JR, DO [phone] Admission Date: 10/12/2023 Discharge Date: No discharge [...] 11/13/2023 2:30 PM Bernice Davis MD [facility]errals and Follow-ups to Schedule No dressing needed [facility] [place], [place] DETAILS OF HOSPITAL STAY Presenting Problem/History [...] Medications These medications were sent to [facility]/pharmacy #[id number] [place] [address] bisoprolol 5 mg tablet collagenase ointment dapagliflozin propanediol 10 mg tablet sacubitriL-valsartan 24-26 mg tablet spironolactone 25 mg tablet Kallie Roman MD PGY-3, Internal Medicine [facility] Associated attestation - Anup Reed MD [...] in 1 week documented in this encounter [facility] 10-15-2023 Hospital Discharge instructions Kallie Roman [...] week of discharge documented in this encounter [facility] [employer] 10-15-2023 History of Present illness Narrative Images [...] RCA in 2014. She also went to [facility] and had orbital arthrectomy of the circumflex, PCI of the distal circumflex, PCI of the mid to distal circumflex was overlapping stents and PCI proximal circumflex in 2020. She then locally had HARRY to circumflex 02/15/2023, prior stent to the LAD in 2007, prior CVA hypotension on chronic midodrine. Patient initially presented to [facility] with generalized weakness and shortness of breath. She was found to [place] [address] as well as high sensitivity troponin greater than 26,000. Potassium was profoundly low at 2.6. She was transferred to [facility] for further management. She had a [...] be continued indefinitely given significant disease in [place] coronary arteries. Optimize medical therapy for coronary [...] be continued indefinitely given significant disease in [place] coronary arteries. Optimize medical therapy for coronary artery disease. Post percutaneous coronary intervention orders Remove sheath 2.5 hours after stopping Angiomax drip. Family updated CHER Mccoy APRN-CNP 10/14/23 1001 Images from the original note were not included. [facility] ACADEMIC SERVICE PROGRESS NOTE Ashvin Rene is a 67 y.o. 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 Optimize medical therapy for coronary [...] be continued indefinitely given significant disease in [place] coronary arteries. Optimize medical therapy for coronary [...] This note was completed using a voice director of optimization system. Every effort was made to ensure accuracy. However, inadvertent computerized director of optimization errors may be present. Associated attestation - Anup Reed MD - 10/14/2023 4:04 PM EDT Images from the original note were not included. Progress Note Patient Name: Ashvin Rene : 1955 10/14/2023 4:03 PM I, Aunp Reed MD, personally performed the face to [...] found to be in CHF with proBNP 72595, HS trop 68013, and K 2.1 which was repleted but [...] be continued indefinitely given significant disease in [place] coronary arteries. Optimize medical therapy for coronary [...] be continued indefinitely given significant disease in [place] coronary arteries. 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 Every effort was made to ensure accuracy. However, inadvertent computerized director of optimization errors may be present. Associated attestation - Anup Reed MD - 10/13/2023 4:47 PM EDT See my separate note documented in this encounter [facility] 10-15-2023 Note XR CHEST 1 VW Procedure: Chest x-ray performed Number of views:AP view History:Hypoxia Comparison:10/12/2023 Findings: The heart and mediastinal silhouette are stable. There is pulmonary vascular congestion. There are no focal consolidations. There is a small left pleural effusion. There is no pneumothorax Impression: Pulmonary vascular congestion. Finalized by Kay Dunn DO on 10/15/2023 10:[address] [facility] 10-15-2023 Note Procedure: Chest x-ray performed Number of views:AP view History:Hypoxia Comparison:10/12/2023 Findings: The heart and mediastinal silhouette are stable. There is pulmonary vascular congestion. There are no focal consolidations. There is a small left pleural effusion. There is no pneumothorax Impression: Pulmonary vascular congestion. Finalized by Kay Dunn DO on 10/15/2023 10:48 AM [facility] 10-14-2023 Plan of care note Problem: Pain Goal: Patient goal is pain score less than 4, able to rest, and participant in treatment plan as appropriate Description: INTERVENTIONS: 1. Encourage patient or legal insurance service representative to report early pain and ask [...] per policy 9. Teach patient or legal insurance service representative interventions for comforting Outcome: Progressing Note: [...] at the bedside 7. Instruct patient/ patient insurance service representative about use of safety devices 8. Include patient/ patient insurance service representative in decisions related to safety Outcome: [...] hygiene technique 7. Identify and instruct patient/patient insurance service representative in use of appropriate isolation precautions for identified infection/symptoms 8. Provide and discuss with patient/patient insurance service representative on educational MDRO sheet 9. Encourage and monitor nutritional status daily and consult cottage master if indicated 10. Implement neutropenic guidelines as needed 11. Review exposure to history of communicable disease and recent travel history on admission 12. Encourage annual influenza vaccine 13. Encourage pneumonia vaccine Outcome: Progressing Note: Evaluation of progress towards goal: Pt afebrile and no outward signs of infection during shift. Problem: Knowledge Deficit Goal: Patient/patient insurance service representative demonstrates understanding of disease process, treatment [...] develop effective communication strategies 4. Include patient/patient insurance service representative in decisions related to communication Outcome: [...] Collaborate with ancillary departments 14. Include patient/patient insurance service representative in decisions related to anxiety Outcome: [...] 6. Collaborate with pastoral/spiritual care, social work program coordinator, mental health counselor as needed. 7. Instruct patient on diversional activities such as physical activity, distraction, and deep breathing exercises to assist with coping 8. Involve patient's insurance service representative in care Outcome: Progressing Note: Evaluation [...] supplement as ordered 13. Collaborate with clinical cottage master 14. Include patient/ patient's insurance service representative in decisions related to nutrition Outcome: [...] Moderate - High Risk Fall Score Description: [place] Fall Score of =/> 25 or indicated by [facility] Assessment Goal: Patient should be free from fall Description: Interventions: 1. [place] to environment 2. Hourly rounds addressing the [...] non-skid footwear 11. Teach patient and patient insurance service representative to maintain environment for safety and [...] (cane, walker) within reach 19. Request patient insurance service representative bring adaptive equipment/mobility aids from home or obtain and provide as needed 20. Consult pharmacy regarding effects of med's affecting mobility, cognition, and alternatives 21. Obtain physician order for PT if risk factors associated with mobility are present 22. Obtain physician order for OT as appropriate 23. Utilize diversional activities 24. Educate patient and patient insurance service representative how to maintain a safe environment during visitation times (notify nurse prior to leaving bedside) 25. Consider appropriateness of medical or non-medical record transcriber 26. Set up voiding schedule as appropriate (every 2 hours) Outcome: Progressing Note: Evaluation of progress towards goal: No signs of falls during shift. [facility] 10-14-2023 Plan of care note Problem: Pain Goal: Patient goal is pain score less than 4, able to rest, and participant in treatment plan as appropriate Description: INTERVENTIONS: 1. Encourage patient or legal insurance service representative to report early pain and ask [...] per policy 9. Teach patient or legal insurance service representative interventions for comforting Outcome: Progressing Note: [...] at the bedside 7. Instruct patient/ patient insurance service representative about use of safety devices 8. Include patient/ patient insurance service representative in decisions related to safety Outcome: [...] hygiene technique 7. Identify and instruct patient/patient insurance service representative in use of appropriate isolation precautions for identified infection/symptoms 8. Provide and discuss with patient/patient insurance service representative on educational MDRO sheet 9. Encourage and monitor nutritional status daily and consult cottage master if indicated 10. Implement neutropenic guidelines as needed 11. Review exposure to history of communicable disease and recent travel history on admission 12. Encourage annual influenza vaccine 13. Encourage pneumonia vaccine Outcome: Progressing Note: Evaluation of progress towards goal: Pt is afebrile at this time. Problem: Knowledge Deficit Goal: Patient/patient insurance service representative demonstrates understanding of disease process, treatment [...] Score of =/> 25 or indicated by [facility] Assessment Goal: Patient should be free from fall Description: Interventions: 1. [place] to environment 2. Hourly rounds addressing the [...] non-skid footwear 11. Teach patient and patient insurance service representative to maintain environment for safety and [...] (cane, walker) within reach 19. Request patient insurance service representative bring adaptive equipment/mobility aids from home or obtain and provide as needed 20. Consult pharmacy regarding effects of med's affecting mobility, cognition, and alternatives 21. Obtain physician order for PT if risk factors associated with mobility are present 22. Obtain physician order for OT as appropriate 23. Utilize diversional activities 24. Educate patient and patient insurance service representative how to maintain a safe environment during visitation times (notify nurse prior to leaving bedside) 25. Consider appropriateness of medical or non-medical record transcriber 26. Set up voiding schedule as appropriate (every 2 hours) Outcome: Progressing Note: Evaluation of progress towards goal: Pt is free from falls at this time. [facility] 10-14-2023 Procedure note Pre Procedure Evaluation: H&P was reviewed and the patient was examined. No change has occurred in the patient's condition since the H&P was completed. 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 Rib Chopper Visit: ACS > 24hrs Chest Pain Symptom Assessment: typical Cardiovascular Instability: No Heart Failure: Yes Congestive Heart Failure (NYHA Classification within 2 weeks): III Heart Failure Newly Diagnosed: No Heart Failure Type: Systolic Electrocardiac Assessment Method: None Stress Test Performed: No Cardiac CTA: No [facility] Clinical Frailty Scale (Assessment immediately prior to procedure): 6: Moderately Frail Cardiac Arrest Out of Hospital: No Cardiac Arrest at Transferring Facility: No [facility] 10-14-2023 Attending History and physical note HISTORY AND PHYSICAL INTERVAL NOTE: Ashvin Rene 1955 [id number] H&P reviewed. The patient was examined and there are no changes to the H&P. Alexi Freeman MD Source Note - Lenny Rodriguez MD - 10/12/2023 11:49 PM EDT Images from the original note were not included. [facility] [address] [place] [address] HISTORY & PHYSICAL / CONSULT NOTE Ahsvin Rene PCP: TUSHAR SOLANO JR, DO Date of Admission: 10/12/2023 Date of Consultation: 10/12/2023 11:49 PM Consult for CHF SUBJECTIVE History of Present Illness: Ashvin Rene is a 67 y.o. 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, prior CVA who presented to OSH with weakness SOB and cough found to be in CHF with proBNP 64615, HS trop 70822, and K 2.1 which was repleted but [...] Past Medical History: Diagnosis Date Angina pectoris ([facility]) Atherosclerosis of coronary artery bypass graft Atherosclerotic heart disease Coronary angioplasty status Coronary artery disease CVA (cerebral vascular accident) ([facility]) Dyspnea Hyperlipidemia Hypertension Hypotension Other chest pain Stroke ([facility]) Previous Surgical History: Past Surgical History: Procedure Laterality Date CARDIAC CATHETERIZATION Cardiac catheterization N/A 02/15/2023 Performed by Star Espinosa MD at [facility] Cardiac catheterization - LV cors w/graft check N/A 10/25/2020 Performed by Alexi Freeman MD at [facility]ATH [facility] Coronary angiogram and graft/ak chin N/A 02/15/2023 Performed by Star Espinosa MD at [facility]ATH [facility] Coronary angiogram and left ventricular gram/pressure + graft/ak chin N/A 10/25/2020 Performed by Alexi Freeman MD at [facility]ATH [facility] Coronary angiogram and left ventricular gram/pressure + graft/ak chin N/A 06/18/2016 Performed by Alexi Freeman MD at [facility]ATH [facility] CORONARY ANGIOPLASTY 12/08/2020 orbital atherectomy and 2 HARRY to prox and distal Circ, at [facility] per Dr. Madhav Ugalde CORONARY ARTERY BYPASS GRAFT 09/08/2014 HYSTERECTOMY INSERTION LOOP RECORDER 05/24/2016 Percutaneous coronary angioplasty left circumflex N/A 02/15/2023 Performed by Star Espinosa MD at [facility]ATH [facility] Stent drug-eluting left circumflex N/A 02/15/2023 Performed by Star Espinosa MD at [facility]ATH [facility] Allergies: Allergies Allergen Reactions [...] injection 1 mg 1 mg intramuscular PRN CEHR Rincon heparin (porcine) injection 2,000 Units 2,000 Units intravenous PRN CHER Rincon [START ON 10/13/2023] heparin infusion 67285 units/500 mL in 0.45% NaCl (50 units/mL premix) 300-3,500 Units/hr intravenous Continuous CHER Rincon magnesium sulfate IVPB 2000 mg/50 mL in iso-osmotic water (40 mg/mL premix) 2,000 mg intravenous PRN Parul R Jeb, DIAGNOSTIC SALES SPECIALIST-ANALOG CIRCUIT DESIGNER Or magnesium sulfate IVPB 4000 mg/100 mL in iso-osmotic water (40 mg/mL premix) 4,000 mg intravenous PRN Parul R Jeb, DIAGNOSTIC SALES SPECIALIST-ANALOG CIRCUIT DESIGNER potassium chloride (K-TAB,KLOR-CON) CR tablet 20-50 mEq 20-50 mEq oral PRN Parul R Jeb, DIAGNOSTIC SALES SPECIALIST-ANALOG CIRCUIT DESIGNER Or potassium chloride (KAYCIEL) 20 mEq/15 mL solution 20-50 mEq 20-50 mEq oral PRN Parul R Jeb, DIAGNOSTIC SALES SPECIALIST-ANALOG CIRCUIT DESIGNER potassium chloride IVPB 10 mEq/50 mL in water (0.2 mEq/mL premix) 10 mEq intravenous PRN Parul R Jeb, DIAGNOSTIC SALES SPECIALIST-ANALOG CIRCUIT DESIGNER Or potassium chloride IVPB 10 mEq/100 mL in water (0.1 mEq/mL premix) 10 mEq intravenous PRN Parul R Jeb, DIAGNOSTIC SALES SPECIALIST-ANALOG CIRCUIT DESIGNER sodium phosphate 20 mmol in sodium chloride 0.9 % 250 mL IVPB 20 mmol intravenous PRN Parul R Jeb, DIAGNOSTIC SALES SPECIALIST-ANALOG CIRCUIT DESIGNER Or sodium phosphate 20 mmol in sodium chloride 0.9 % 100 mL IVPB 20 mmol intravenous PRN Parul R Jeb, DIAGNOSTIC SALES SPECIALIST-ANALOG CIRCUIT DESIGNER Or sod phos di, mono-K phos mono (K-PHOS NEUTRAL) 250 mg tablet 2 tablet 2 tablet oral PRN Parul R Jeb, DIAGNOSTIC SALES SPECIALIST-ANALOG CIRCUIT DESIGNER sodium chloride 0.9 % infusion 10 mL/hr intravenous Continuous PRN Parul R Jeb, DIAGNOSTIC SALES SPECIALIST-ANALOG CIRCUIT DESIGNER sodium chloride 0.9 % infusion 10 mL/hr intravenous Continuous PRN Parul R Jeb, DIAGNOSTIC SALES SPECIALIST-ANALOG CIRCUIT DESIGNER sodium chloride 0.9 % infusion 10 mL/hr intravenous Continuous PRN Parul R Jeb, DIAGNOSTIC SALES SPECIALIST-ANALOG CIRCUIT DESIGNER Home Meds: Prior to Admission medications Medication [...] be continued indefinitely given significant disease in ak chin coronary arteries. Optimize medical therapy for coronary [...] be continued indefinitely given significant disease in ak chin coronary arteries. Optimize medical therapy for coronary [...] Acute on chronic HFrEF Elevated HS troponin 41972 ASCVD h/o CABG and s/p PCI Cx [...] 75 mg oral Daily Parul R Jeb, DIAGNOSTIC SALES SPECIALIST-ANALOG CIRCUIT DESIGNER dextrose (GLUTOSE) 40 % gel 15 g 15 g oral PRN Parul Holder Jeb, DIAGNOSTIC SALES SPECIALIST-ANALOG CIRCUIT DESIGNER dextrose 5 % (D5W) infusion 100 mL/hr intravenous Continuous PRN Parul Hassann, DIAGNOSTIC SALES SPECIALIST-ANALOG CIRCUIT DESIGNER dextrose 50 % in water (D50W) 50% solution 25 mL 25 mL intravenous PRN Parul R Jeb, DIAGNOSTIC SALES SPECIALIST-ANALOG CIRCUIT DESIGNER glucagon HCL injection 1 mg 1 mg intramuscular PRN Parul Holder Jeb, DIAGNOSTIC SALES SPECIALIST-ANALOG CIRCUIT DESIGNER heparin (porcine) injection 2,000 Units 2,000 Units intravenous PRN Parul R Jeb, DIAGNOSTIC SALES SPECIALIST-ANALOG CIRCUIT DESIGNER heparin infusion 66851 units/500 mL in 0.45% NaCl (50 units/mL premix) 300-3,500 Units/hr intravenous Continuous Parul Holder Jeb, DIAGNOSTIC SALES SPECIALIST-ANALOG CIRCUIT DESIGNER 16 mL/hr at 10/13/23 0013 800 Units/hr at 10/13/23 0013 magnesium sulfate IVPB 2000 mg/50 mL in iso-osmotic water (40 mg/mL premix) 2,000 mg intravenous PRN Parul R Jeb, DIAGNOSTIC SALES SPECIALIST-ANALOG CIRCUIT DESIGNER Or magnesium sulfate IVPB 4000 mg/100 mL in iso-osmotic water (40 mg/mL premix) 4,000 mg intravenous PRN Parul Hassann, DIAGNOSTIC SALES SPECIALIST-ANALOG CIRCUIT DESIGNER midodrine (PROAMATINE) tablet 5 mg 5 mg oral Q8H PRN Parul R Jeb, DIAGNOSTIC SALES SPECIALIST-ANALOG CIRCUIT DESIGNER potassium chloride (K-TAB,KLOR-CON) CR tablet 20-50 mEq 20-50 mEq oral PRN Parul Holder Jeb, DIAGNOSTIC SALES SPECIALIST-ANALOG CIRCUIT DESIGNER Or potassium chloride (KAYCIEL) 20 mEq/15 mL solution 20-50 mEq 20-50 mEq oral PRN Parul R Jeb, DIAGNOSTIC SALES SPECIALIST-ANALOG CIRCUIT DESIGNER potassium chloride IVPB 10 mEq/50 mL in water (0.2 mEq/mL premix) 10 mEq intravenous PRN Parul R Jeb, DIAGNOSTIC SALES SPECIALIST-ANALOG CIRCUIT DESIGNER Or potassium chloride IVPB 10 mEq/100 mL in water (0.1 mEq/mL premix) 10 mEq intravenous PRN Parul R Jeb, DIAGNOSTIC SALES SPECIALIST-ANALOG CIRCUIT DESIGNER ranolazine (RANEXA) 12 hr tablet 1,000 mg 1,000 mg oral BID Parul R Jeb, DIAGNOSTIC SALES SPECIALIST-ANALOG CIRCUIT DESIGNER rosuvastatin (CRESTOR) tablet 20 mg 20 mg oral Daily Parul R Jeb, DIAGNOSTIC SALES SPECIALIST-ANALOG CIRCUIT DESIGNER sodium phosphate 20 mmol in sodium chloride 0.9 % 250 mL IVPB 20 mmol intravenous PRN Parul R Jeb, DIAGNOSTIC SALES SPECIALIST-ANALOG CIRCUIT DESIGNER Or sodium phosphate 20 mmol in sodium chloride 0.9 % 100 mL IVPB 20 mmol intravenous PRN Parul R Jeb, DIAGNOSTIC SALES SPECIALIST-ANALOG CIRCUIT DESIGNER Or sod phos di, mono-K phos mono (K-PHOS NEUTRAL) 250 mg tablet 2 tablet 2 tablet oral PRN Parul R Jeb, DIAGNOSTIC SALES SPECIALIST-ANALOG CIRCUIT DESIGNER sodium chloride 0.9 % infusion 10 mL/hr intravenous Continuous PRN Parul R Jeb, DIAGNOSTIC SALES SPECIALIST-ANALOG CIRCUIT DESIGNER sodium chloride 0.9 % infusion 10 mL/hr intravenous Continuous PRN Parul R Jeb, DIAGNOSTIC SALES SPECIALIST-ANALOG CIRCUIT DESIGNER sodium chloride 0.9 % infusion 10 mL/hr intravenous Continuous PRN Parul R Jeb, DIAGNOSTIC SALES SPECIALIST-ANALOG CIRCUIT DESIGNER Laboratory CBC: BMP: Troponin I Physical Exam [...] This note was completed using a voice director of optimization system. Every effort was made to ensure accuracy. However, inadvertent computerized director of optimization errors may be present. [employer] Work Phone: [phone] History and physical note HISTORY AND PHYSICAL INTERVAL NOTE: Ashvin Rene [id number] H&P reviewed. The patient was examined and there are no changes to the H&P. Alexi Freeman MD Source Note - Lenny Rodriguez MD - 10/12/2023 11:49 PM EDT Images from the original note were not included. [facility] [address] [place] [address] HISTORY & PHYSICAL / CONSULT NOTE Ashvin [...] found to be in CHF with proBNP 31738, HS trop 03525, and K 2.1 which was repleted but [...] Past Medical History: Diagnosis Date Angina pectoris ([facility] Atherosclerosis of coronary artery bypass graft Atherosclerotic heart disease Coronary angioplasty status Coronary artery disease CVA (cerebral vascular accident) ([facility]) Dyspnea Hyperlipidemia Hypertension Hypotension Other chest pain Stroke ([facility]) Previous Surgical History: Past Surgical History: Procedure Laterality Date CARDIAC CATHETERIZATION Cardiac catheterization N/A 02/15/2023 Performed by Star Espinosa MD at [facility]ATH [facility] Cardiac catheterization - LV cors w/graft check N/A 10/25/2020 Performed by Alexi Freeman MD at [facility]ATH [facility] Coronary angiogram and graft/ak chin N/A 02/15/2023 Performed by Star Espinosa MD at [facility] Coronary angiogram and left ventricular gram/pressure + graft/ak chin N/A 10/25/2020 Performed by Alexi Freeman MD at [facility]ATH [facility] Coronary angiogram and left ventricular gram/pressure + graft/ak chin N/A 06/18/2016 Performed by Alexi Freeman MD at [facility]ATH [facility] CORONARY ANGIOPLASTY 12/08/2020 orbital atherectomy and 2 HARRY to prox and distal Circ, at [facility] per Dr. Madhav Uaglde CORONARY ARTERY BYPASS GRAFT 09/08/2014 HYSTERECTOMY INSERTION LOOP RECORDER 05/24/2016 Percutaneous coronary angioplasty left circumflex N/A 02/15/2023 Performed by Star Espinosa MD at [facility]ATH [facility] Stent drug-eluting left circumflex N/A 02/15/2023 Performed by Star Espinosa MD at [facility]ATH [facility] Allergies: Allergies Allergen Reactions Aspirin-Dipyridamole aggronox Atorvastatin Hives lipitor Cefadroxil duricef Codeine Fenofibrate Micronized tricor Fluvoxamine luvox Nefazodone serzone Niacin Other reaction(s): Intolerance-unknown Hospital Meds: Current Facility-Administered Medications Medication Dose Route Frequency Provider Last Rate Last Admin calcium gluconate IVPB 1000 mg/50 mL (20 mg/mL premix) 1,000 mg intravenous PRN Parul John APRN-ANALOG CIRCUIT DESIGNER Or calcium gluconate IVPB 2000 mg/100 mL (20 mg/mL premix) 2,000 mg intravenous PRN Parul John, DIAGNOSTIC SALES SPECIALIST-ANALOG CIRCUIT DESIGNER Or calcium gluconate 3,000 mg in sodium chloride 0.9 % 100 mL IVPB 3,000 mg intravenous PRN Parul John DIAGNOSTIC SALES SPECIALIST-ANALOG CIRCUIT DESIGNER dextrose (GLUTOSE) 40 % gel 15 g 15 g oral PRN Parul John DIAGNOSTIC SALES SPECIALIST-ANALOG CIRCUIT DESIGNER dextrose 5 % (D5W) infusion 100 mL/hr intravenous Continuous PRN Parul John DIAGNOSTIC SALES SPECIALIST-ANALOG CIRCUIT DESIGNER dextrose 50 % in water (D50W) 50% solution 25 mL 25 mL intravenous PRN Parul R Jeb, DIAGNOSTIC SALES SPECIALIST-ANALOG CIRCUIT DESIGNER glucagon HCL injection 1 mg 1 mg intramuscular PRN Parul R Jeb, DIAGNOSTIC SALES SPECIALIST-ANALOG CIRCUIT DESIGNER heparin (porcine) injection 2,000 Units 2,000 Units intravenous PRN Parul R Ejb, DIAGNOSTIC SALES SPECIALIST-ANALOG CIRCUIT DESIGNER [START ON 10/13/2023] heparin infusion 63732 units/500 mL in 0.45% NaCl (50 units/mL premix) 300-3,500 Units/hr intravenous Continuous Parul R Jeb, DIAGNOSTIC SALES SPECIALIST-ANALOG CIRCUIT DESIGNER magnesium sulfate IVPB 2000 mg/50 mL in iso-osmotic water (40 mg/mL premix) 2,000 mg intravenous PRN Parul R Jeb, DIAGNOSTIC SALES SPECIALIST-ANALOG CIRCUIT DESIGNER Or magnesium sulfate IVPB 4000 mg/100 mL in iso-osmotic water (40 mg/mL premix) 4,000 mg intravenous PRN Parul R Jeb, DIAGNOSTIC SALES SPECIALIST-ANALOG CIRCUIT DESIGNER potassium chloride (K-TAB,KLOR-CON) CR tablet 20-50 mEq 20-50 mEq oral PRN Parul R Jeb, DIAGNOSTIC SALES SPECIALIST-ANALOG CIRCUIT DESIGNER Or potassium chloride (KAYCIEL) 20 mEq/15 mL solution 20-50 mEq 20-50 mEq oral PRN Parul R Ejb, DIAGNOSTIC SALES SPECIALIST-ANALOG CIRCUIT DESIGNER potassium chloride IVPB 10 mEq/50 mL in water (0.2 mEq/mL premix) 10 mEq intravenous PRN Parul R Jeb, DIAGNOSTIC SALES SPECIALIST-ANALOG CIRCUIT DESIGNER Or potassium chloride IVPB 10 mEq/100 mL in water (0.1 mEq/mL premix) 10 mEq intravenous PRN Parul R Jeb, DIAGNOSTIC SALES SPECIALIST-ANALOG CIRCUIT DESIGNER sodium phosphate 20 mmol in sodium chloride 0.9 % 250 mL IVPB 20 mmol intravenous PRN Parul R Jeb, DIAGNOSTIC SALES SPECIALIST-ANALOG CIRCUIT DESIGNER Or sodium phosphate 20 mmol in sodium chloride 0.9 % 100 mL IVPB 20 mmol intravenous PRN Parul R Jeb, DIAGNOSTIC SALES SPECIALIST-ANALOG CIRCUIT DESIGNER Or sod phos di, mono-K phos mono (K-PHOS NEUTRAL) 250 mg tablet 2 tablet 2 tablet oral PRN Parul R Jeb, DIAGNOSTIC SALES SPECIALIST-ANALOG CIRCUIT DESIGNER sodium chloride 0.9 % infusion 10 mL/hr intravenous Continuous PRN Parul R Jeb, DIAGNOSTIC SALES SPECIALIST-ANALOG CIRCUIT DESIGNER sodium chloride 0.9 % infusion 10 mL/hr intravenous Continuous PRN Parul R Jeb, DIAGNOSTIC SALES SPECIALIST-ANALOG CIRCUIT DESIGNER sodium chloride 0.9 % infusion 10 mL/hr [...] be continued indefinitely given significant disease in ak chin coronary arteries. Optimize medical therapy for coronary [...] be continued indefinitely given significant disease in ak chin coronary arteries. Optimize medical therapy for coronary [...] Acute on chronic HFrEF Elevated HS troponin 73412 ASCVD h/o CABG and s/p PCI Cx [...] mg 81 mg oral Daily Parul John, DIAGNOSTIC SALES SPECIALIST-ANALOG CIRCUIT DESIGNER calcium gluconate IVPB 1000 mg/50 mL (20 mg/mL premix) 1,000 mg intravenous PRN Parul Hassann, DIAGNOSTIC SALES SPECIALIST-ANALOG CIRCUIT DESIGNER Or calcium gluconate IVPB 2000 mg/100 mL (20 mg/mL premix) 2,000 mg intravenous PRN Parul Hassann, DIAGNOSTIC SALES SPECIALIST-ANALOG CIRCUIT DESIGNER Or calcium gluconate 3,000 mg in sodium chloride 0.9 % 100 mL IVPB 3,000 mg intravenous PRN Parul John, DIAGNOSTIC SALES SPECIALIST-ANALOG CIRCUIT DESIGNER clopidogreL (PLAVIX) tablet 75 mg 75 mg oral Daily Parul John, DIAGNOSTIC SALES SPECIALIST-ANALOG CIRCUIT DESIGNER dextrose (GLUTOSE) 40 % gel 15 g 15 g oral PRN Parul John, DIAGNOSTIC SALES SPECIALIST-ANALOG CIRCUIT DESIGNER dextrose 5 % (D5W) infusion 100 mL/hr intravenous Continuous PRN Parul John, DIAGNOSTIC SALES SPECIALIST-ANALOG CIRCUIT DESIGNER dextrose 50 % in water (D50W) 50% solution 25 mL 25 mL intravenous PRN Parul John, DIAGNOSTIC SALES SPECIALIST-ANALOG CIRCUIT DESIGNER glucagon HCL injection 1 mg 1 mg intramuscular PRN Parul John, DIAGNOSTIC SALES SPECIALIST-ANALOG CIRCUIT DESIGNER heparin (porcine) injection 2,000 Units 2,000 Units intravenous PRN Parul John, DIAGNOSTIC SALES SPECIALIST-ANALOG CIRCUIT DESIGNER heparin infusion 48491 units/500 mL in 0.45% NaCl (50 units/mL premix) 300-3,500 Units/hr intravenous Continuous Parul John, DIAGNOSTIC SALES SPECIALIST-ANALOG CIRCUIT DESIGNER 16 mL/hr at 10/13/23 0013 800 Units/hr at 10/13/23 0013 magnesium sulfate IVPB 2000 mg/50 mL in iso-osmotic water (40 mg/mL premix) 2,000 mg intravenous PRN Parul Hassann, DIAGNOSTIC SALES SPECIALIST-ANALOG CIRCUIT DESIGNER Or magnesium sulfate IVPB 4000 mg/100 mL in iso-osmotic water (40 mg/mL premix) 4,000 mg intravenous PRN Parul John, DIAGNOSTIC SALES SPECIALIST-ANALOG CIRCUIT DESIGNER midodrine (PROAMATINE) tablet 5 mg 5 mg oral Q8H PRN Parul John, DIAGNOSTIC SALES SPECIALIST-ANALOG CIRCUIT DESIGNER potassium chloride (K-TAB,KLOR-CON) CR tablet 20-50 mEq 20-50 mEq oral PRN Parul Hassann, DIAGNOSTIC SALES SPECIALIST-ANALOG CIRCUIT DESIGNER Or potassium chloride (KAYCIEL) 20 mEq/15 mL solution 20-50 mEq 20-50 mEq oral PRN Parul R Jeb, DIAGNOSTIC SALES SPECIALIST-ANALOG CIRCUIT DESIGNER potassium chloride IVPB 10 mEq/50 mL in water (0.2 mEq/mL premix) 10 mEq intravenous PRN Parul R Jeb, DIAGNOSTIC SALES SPECIALIST-ANALOG CIRCUIT DESIGNER Or potassium chloride IVPB 10 mEq/100 mL in water (0.1 mEq/mL premix) 10 mEq intravenous PRN Parul R Jeb, DIAGNOSTIC SALES SPECIALIST-ANALOG CIRCUIT DESIGNER ranolazine (RANEXA) 12 hr tablet 1,000 mg 1,000 mg oral BID Parul R Jeb, DIAGNOSTIC SALES SPECIALIST-ANALOG CIRCUIT DESIGNER rosuvastatin (CRESTOR) tablet 20 mg 20 mg oral Daily Parul Mcdowellfern, DIAGNOSTIC SALES SPECIALIST-ANALOG CIRCUIT DESIGNER sodium phosphate 20 mmol in sodium chloride 0.9 % 250 mL IVPB 20 mmol intravenous PRN Parul R Jeb, DIAGNOSTIC SALES SPECIALIST-ANALOG CIRCUIT DESIGNER Or sodium phosphate 20 mmol in sodium chloride 0.9 % 100 mL IVPB 20 mmol intravenous PRN Parul R Jeb, DIAGNOSTIC SALES SPECIALIST-ANALOG CIRCUIT DESIGNER Or sod phos di, mono-K phos mono (K-PHOS NEUTRAL) 250 mg tablet 2 tablet 2 tablet oral PRN Parul R Jeb, DIAGNOSTIC SALES SPECIALIST-ANALOG CIRCUIT DESIGNER sodium chloride 0.9 % infusion 10 mL/hr intravenous Continuous PRN Parul R Jeb, DIAGNOSTIC SALES SPECIALIST-ANALOG CIRCUIT DESIGNER sodium chloride 0.9 % infusion 10 mL/hr intravenous Continuous PRN Parul R Jeb, DIAGNOSTIC SALES SPECIALIST-ANALOG CIRCUIT DESIGNER sodium chloride 0.9 % infusion 10 mL/hr intravenous Continuous PRN Parul R Jeb, DIAGNOSTIC SALES SPECIALIST-ANALOG CIRCUIT DESIGNER Laboratory CBC: BMP: Troponin I Physical Exam [...] This note was completed using a voice director of optimization system. Every effort was made to ensure accuracy. However, inadvertent computerized director of optimization errors may be present. Images from the original note were not included. [facility] [address] [place] [address] HISTORY & PHYSICAL / CONSULT NOTE Ashvin [...] found to be in CHF with proBNP 55921, HS trop 12434, and K 2.1 which was repleted but [...] Past Medical History: Diagnosis Date Angina pectoris ([facility]) Atherosclerosis of coronary artery bypass graft Atherosclerotic heart disease Coronary angioplasty status Coronary artery disease CVA (cerebral vascular accident) ([facility]) Dyspnea Hyperlipidemia Hypertension Hypotension Other chest pain Stroke ([facility]) Previous Surgical History: Past Surgical History: Procedure Laterality Date CARDIAC CATHETERIZATION Cardiac catheterization N/A 02/15/2023 Performed by Star Espinosa MD at [facility] Cardiac catheterization - LV cors w/graft check N/A 10/25/2020 Performed by Alexi Freeman MD at [facility] Coronary angiogram and graft/ak chin N/A 02/15/2023 Performed by Star Espinosa MD at [facility] Coronary angiogram and left ventricular gram/pressure + graft/ak chin N/A 10/25/2020 Performed by Alexi Freeman MD at [facility] Coronary angiogram and left ventricular gram/pressure + graft/ak chin N/A 06/18/2016 Performed by Alexi Freeman MD at [facility] CORONARY ANGIOPLASTY 12/08/2020 orbital atherectomy and 2 HARRY to prox and distal Circ, at [facility] per Dr. Madahv Ugalde CORONARY ARTERY BYPASS GRAFT 09/08/2014 HYSTERECTOMY INSERTION LOOP RECORDER 05/24/2016 Percutaneous coronary angioplasty left circumflex N/A 02/15/2023 Performed by Star Espinosa MD at [facility] Stent drug-eluting left circumflex N/A 02/15/2023 Performed by Star Espinosa MD at [facility] Allergies: Allergies Allergen Reactions [...] premix) 2,000 mg intravenous PRN Parul John APRN-ANALOG CIRCUIT DESIGNER Or calcium gluconate 3,000 mg in sodium chloride 0.9 % 100 mL IVPB 3,000 mg intravenous PRN Parul John APRN-SUNIL dextrose (GLUTOSE) 40 % gel 15 g 15 g oral PRN Parul John APRN-ANALOG CIRCUIT DESIGNER dextrose 5 % (D5W) infusion 100 mL/hr intravenous Continuous PRN Parul John APRN-SUNIL dextrose 50 % in water (D50W) 50% solution 25 mL 25 mL intravenous PRN Parul R Jeb, DIAGNOSTIC SALES SPECIALIST-ANALOG CIRCUIT DESIGNER glucagon HCL injection 1 mg 1 mg intramuscular PRN Parul R Jeb, DIAGNOSTIC SALES SPECIALIST-ANALOG CIRCUIT DESIGNER heparin (porcine) injection 2,000 Units 2,000 Units intravenous PRN Parul R Jeb, DIAGNOSTIC SALES SPECIALIST-ANALOG CIRCUIT DESIGNER [START ON 10/13/2023] heparin infusion 26266 units/500 mL in 0.45% NaCl (50 units/mL premix) 300-3,500 Units/hr intravenous Continuous Parul R Jeb, DIAGNOSTIC SALES SPECIALIST-ANALOG CIRCUIT DESIGNER magnesium sulfate IVPB 2000 mg/50 mL in iso-osmotic water (40 mg/mL premix) 2,000 mg intravenous PRN Parul R Jeb, DIAGNOSTIC SALES SPECIALIST-ANALOG CIRCUIT DESIGNER Or magnesium sulfate IVPB 4000 mg/100 mL in iso-osmotic water (40 mg/mL premix) 4,000 mg intravenous PRN Parul R Jeb, DIAGNOSTIC SALES SPECIALIST-ANALOG CIRCUIT DESIGNER potassium chloride (K-TAB,KLOR-CON) CR tablet 20-50 mEq 20-50 mEq oral PRN Parul R Jeb, DIAGNOSTIC SALES SPECIALIST-ANALOG CIRCUIT DESIGNER Or potassium chloride (KAYCIEL) 20 mEq/15 mL solution 20-50 mEq 20-50 mEq oral PRN Parul R Jeb, DIAGNOSTIC SALES SPECIALIST-ANALOG CIRCUIT DESIGNER potassium chloride IVPB 10 mEq/50 mL in water (0.2 mEq/mL premix) 10 mEq intravenous PRN Parul R Jeb, DIAGNOSTIC SALES SPECIALIST-ANALOG CIRCUIT DESIGNER Or potassium chloride IVPB 10 mEq/100 mL in water (0.1 mEq/mL premix) 10 mEq intravenous PRN Parul R Jeb, DIAGNOSTIC SALES SPECIALIST-ANALOG CIRCUIT DESIGNER sodium phosphate 20 mmol in sodium chloride 0.9 % 250 mL IVPB 20 mmol intravenous PRN Parul R Jeb, DIAGNOSTIC SALES SPECIALIST-ANALOG CIRCUIT DESIGNER Or sodium phosphate 20 mmol in sodium chloride 0.9 % 100 mL IVPB 20 mmol intravenous PRN Parul R Jeb, DIAGNOSTIC SALES SPECIALIST-ANALOG CIRCUIT DESIGNER Or sod phos di, mono-K phos mono (K-PHOS NEUTRAL) 250 mg tablet 2 tablet 2 tablet oral PRN Parul R Jeb, DIAGNOSTIC SALES SPECIALIST-ANALOG CIRCUIT DESIGNER sodium chloride 0.9 % infusion 10 mL/hr intravenous Continuous PRN Parul R Jeb, DIAGNOSTIC SALES SPECIALIST-ANALOG CIRCUIT DESIGNER sodium chloride 0.9 % infusion 10 mL/hr intravenous Continuous PRN Parul R Jeb, DIAGNOSTIC SALES SPECIALIST-ANALOG CIRCUIT DESIGNER sodium chloride 0.9 % infusion 10 mL/hr [...] (1,000 mg total) before bedtime. 03/05/23 Keturah uHll MD rimegepant (NURTEC ODT) 75 mg tablet,disintegrating [...] be continued indefinitely given significant disease in ak chin coronary arteries. Optimize medical therapy for coronary [...] be continued indefinitely given significant disease in ak chin coronary arteries. Optimize medical therapy for coronary [...] Acute on chronic HFrEF Elevated HS troponin 96098 ASCVD h/o CABG and s/p PCI Cx 03/05 Ischemic cardiomyopathy EF 35-40% Hypokalemia Chronic hypotension on midodrine Dyslipidemia Trend troponins Recheck electrolytes IV diuresis Continue Heparin gtt Continue DAPT Unable to titrate GDMT given HOTN Recheck echo PARUL JOHN, NICK-ANALOG CIRCUIT DESIGNER Parul John APRN-SUNIL 10/13/23 0016 [facility] [...] mg 81 mg oral Daily Parul John, DIAGNOSTIC SALES SPECIALIST-ANALOG CIRCUIT DESIGNER calcium gluconate IVPB 1000 mg/50 mL (20 mg/mL premix) 1,000 mg intravenous PRN Parul Hassann, DIAGNOSTIC SALES SPECIALIST-ANALOG CIRCUIT DESIGNER Or calcium gluconate IVPB 2000 mg/100 mL (20 mg/mL premix) 2,000 mg intravenous PRN Parul John, DIAGNOSTIC SALES SPECIALIST-ANALOG CIRCUIT DESIGNER Or calcium gluconate 3,000 mg in sodium chloride 0.9 % 100 mL IVPB 3,000 mg intravenous PRN Parul John, DIAGNOSTIC SALES SPECIALIST-ANALOG CIRCUIT DESIGNER clopidogreL (PLAVIX) tablet 75 mg 75 mg oral Daily Parul John, DIAGNOSTIC SALES SPECIALIST-ANALOG CIRCUIT DESIGNER dextrose (GLUTOSE) 40 % gel 15 g 15 g oral PRN Parul John, DIAGNOSTIC SALES SPECIALIST-ANALOG CIRCUIT DESIGNER dextrose 5 % (D5W) infusion 100 mL/hr intravenous Continuous PRN Parul John, DIAGNOSTIC SALES SPECIALIST-ANALOG CIRCUIT DESIGNER dextrose 50 % in water (D50W) 50% solution 25 mL 25 mL intravenous PRN Parul John, DIAGNOSTIC SALES SPECIALIST-ANALOG CIRCUIT DESIGNER glucagon HCL injection 1 mg 1 mg intramuscular PRN Parul John, DIAGNOSTIC SALES SPECIALIST-ANALOG CIRCUIT DESIGNER heparin (porcine) injection 2,000 Units 2,000 Units intravenous PRN Parul John, DIAGNOSTIC SALES SPECIALIST-ANALOG CIRCUIT DESIGNER heparin infusion 81019 units/500 mL in 0.45% NaCl (50 units/mL premix) 300-3,500 Units/hr intravenous Continuous Parul John, DIAGNOSTIC SALES SPECIALIST-ANALOG CIRCUIT DESIGNER 16 mL/hr at 10/13/23 0013 800 Units/hr at 10/13/23 0013 magnesium sulfate IVPB 2000 mg/50 mL in iso-osmotic water (40 mg/mL premix) 2,000 mg intravenous PRN Parul John, DIAGNOSTIC SALES SPECIALIST-ANALOG CIRCUIT DESIGNER Or magnesium sulfate IVPB 4000 mg/100 mL in iso-osmotic water (40 mg/mL premix) 4,000 mg intravenous PRN Parul John, DIAGNOSTIC SALES SPECIALIST-ANALOG CIRCUIT DESIGNER midodrine (PROAMATINE) tablet 5 mg 5 mg oral Q8H PRN Parul John, DIAGNOSTIC SALES SPECIALIST-ANALOG CIRCUIT DESIGNER potassium chloride (K-TAB,KLOR-CON) CR tablet 20-50 mEq 20-50 mEq oral PRN Parul John, DIAGNOSTIC SALES SPECIALIST-ANALOG CIRCUIT DESIGNER Or potassium chloride (KAYCIEL) 20 mEq/15 mL solution 20-50 mEq 20-50 mEq oral PRN Parul R Jeb, DIAGNOSTIC SALES SPECIALIST-ANALOG CIRCUIT DESIGNER potassium chloride IVPB 10 mEq/50 mL in water (0.2 mEq/mL premix) 10 mEq intravenous PRN Parul R Jeb, DIAGNOSTIC SALES SPECIALIST-ANALOG CIRCUIT DESIGNER Or potassium chloride IVPB 10 mEq/100 mL in water (0.1 mEq/mL premix) 10 mEq intravenous PRN Parul R Jeb, DIAGNOSTIC SALES SPECIALIST-ANALOG CIRCUIT DESIGNER ranolazine (RANEXA) 12 hr tablet 1,000 mg 1,000 mg oral BID Parul Hassann, DIAGNOSTIC SALES SPECIALIST-ANALOG CIRCUIT DESIGNER rosuvastatin (CRESTOR) tablet 20 mg 20 mg oral Daily Parul Hassann, DIAGNOSTIC SALES SPECIALIST-ANALOG CIRCUIT DESIGNER sodium phosphate 20 mmol in sodium chloride 0.9 % 250 mL IVPB 20 mmol intravenous PRN Parul R Jeb, DIAGNOSTIC SALES SPECIALIST-ANALOG CIRCUIT DESIGNER Or sodium phosphate 20 mmol in sodium chloride 0.9 % 100 mL IVPB 20 mmol intravenous PRN Parul Hassann, DIAGNOSTIC SALES SPECIALIST-ANALOG CIRCUIT DESIGNER Or sod phos di, mono-K phos mono (K-PHOS NEUTRAL) 250 mg tablet 2 tablet 2 tablet oral PRN Parul R Jeb, DIAGNOSTIC SALES SPECIALIST-ANALOG CIRCUIT DESIGNER sodium chloride 0.9 % infusion 10 mL/hr intravenous Continuous PRN Parul R Jeb, DIAGNOSTIC SALES SPECIALIST-ANALOG CIRCUIT DESIGNER sodium chloride 0.9 % infusion 10 mL/hr intravenous Continuous PRN Parul R Jeb, DIAGNOSTIC SALES SPECIALIST-ANALOG CIRCUIT DESIGNER sodium chloride 0.9 % infusion 10 mL/hr intravenous Continuous PRN Parul R Jeb, DIAGNOSTIC SALES SPECIALIST-ANALOG CIRCUIT DESIGNER Laboratory CBC: BMP: Troponin I Physical Exam [...] This note was completed using a voice director of optimization system. Every effort was made to ensure accuracy. However, inadvertent computerized director of optimization errors may be present. [facility] Nurse Note Adjusted CathPCI Bleeding Event [...] is an appropriate candidate for the procedure. [facility] Plan of care note Problem: Pain Goal: Patient goal is pain score less than 4, able to rest, and participant in treatment plan as appropriate Description: INTERVENTIONS: 1. Encourage patient or legal insurance service representative to report early pain and ask [...] per policy 9. Teach patient or legal insurance service representative interventions for comforting Outcome: Progressing Note: [...] at the bedside 7. Instruct patient/ patient insurance service representative about use of safety devices 8. Include patient/ patient insurance service representative in decisions related to safety Outcome: [...] hygiene technique 7. Identify and instruct patient/patient insurance service representative in use of appropriate isolation precautions for identified infection/symptoms 8. Provide and discuss with patient/patient insurance service representative on educational MDRO sheet 9. Encourage and monitor nutritional status daily and consult cottage master if indicated 10. Implement neutropenic guidelines as needed 11. Review exposure to history of communicable disease and recent travel history on admission 12. Encourage annual influenza vaccine 13. Encourage pneumonia vaccine Outcome: Progressing Note: Evaluation of progress towards goal: Patient afebrile and WBC of 5.3. Will continue to monitor for signs of infection Problem: Knowledge Deficit Goal: Patient/patient insurance service representative demonstrates understanding of disease process, treatment [...] develop effective communication strategies 4. Include patient/patient insurance service representative in decisions related to communication Outcome: [...] supplement as ordered 13. Collaborate with clinical cottage master 14. Include patient/ patient's insurance service representative in decisions related to nutrition Outcome: Progressing Note: Evaluation of progress towards goal: Collaborating with interdisciplinary team to ensure adequate nutritional intake. Problem: Moderate - High Risk Fall Score Description: Beal Fall Score of =/> 25 or indicated by [facility] Assessment Goal: Patient should be free from fall Description: Interventions: 1. [place] to environment 2. Hourly rounds addressing the [...] non-skid footwear 11. Teach patient and patient insurance service representative to maintain environment for safety and [...] (cane, walker) within reach 19. Request patient insurance service representative bring adaptive equipment/mobility aids from home or obtain and provide as needed 20. Consult pharmacy regarding effects of med's affecting mobility, cognition, and alternatives 21. Obtain physician order for PT if risk factors associated with mobility are present 22. Obtain physician order for OT as appropriate 23. Utilize diversional activities 24. Educate patient and patient insurance service representative how to maintain a safe environment during visitation times (notify nurse prior to leaving bedside) 25. Consider appropriateness of medical or non-medical record transcriber 26. Set up voiding schedule as appropriate (every 2 hours) Outcome: Progressing Note: Evaluation of progress towards goal: Area clear of hazards. Bed locked and in lowest position. Side rails up. Hourly rounding complete. Pt remains free from falls at this time. [facility] 10-13-2023 Plan of care note Problem: Pain Goal: Patient goal is pain score less than 4, able to rest, and participant in treatment plan as appropriate Description: INTERVENTIONS: 1. Encourage patient or legal insurance service representative to report early pain and ask [...] per policy 9. Teach patient or legal insurance service representative interventions for comforting Outcome: Progressing Note: [...] at the bedside 7. Instruct patient/ patient insurance service representative about use of safety devices 8. Include patient/ patient insurance service representative in decisions related to safety Outcome: [...] hygiene technique 7. Identify and instruct patient/patient insurance service representative in use of appropriate isolation precautions for identified infection/symptoms 8. Provide and discuss with patient/patient insurance service representative on educational MDRO sheet 9. Encourage and monitor nutritional status daily and consult cottage master if indicated 10. Implement neutropenic guidelines as needed 11. Review exposure to history of communicable disease and recent travel history on admission 12. Encourage annual influenza vaccine 13. Encourage pneumonia vaccine Outcome: Progressing Note: Evaluation of progress towards goal: Pt is afebrile at this time. Problem: Knowledge Deficit Goal: Patient/patient insurance service representative demonstrates understanding of disease process, treatment [...] Score of =/> 25 or indicated by [facility] Assessment Goal: Patient should be free from fall Description: Interventions: 1. [place] to environment 2. Hourly rounds addressing the [...] non-skid footwear 11. Teach patient and patient insurance service representative to maintain environment for safety and [...] (cane, walker) within reach 19. Request patient insurance service representative bring adaptive equipment/mobility aids from home or obtain and provide as needed 20. Consult pharmacy regarding effects of med's affecting mobility, cognition, and alternatives 21. Obtain physician order for PT if risk factors associated with mobility are present 22. Obtain physician order for OT as appropriate 23. Utilize diversional activities 24. Educate patient and patient insurance service representative how to maintain a safe environment during visitation times (notify nurse prior to leaving bedside) 25. Consider appropriateness of medical or non-medical record transcriber 26. Set up voiding schedule as appropriate (every 2 hours) Outcome: Progressing Note: Evaluation of progress towards goal: Pt is free from falls at this time. [facility]23 Progress note Formatting of t his note might be different from the original. Pt comfortable. No chest pain. No sob on 2 L ECG without sig ST abn Tr 13 Continues on heparin/DAPT Ionized mg .24 NSTEMI 2. Acute on chronic heart failure Keep NPO as LHC may be considered Supplement mg before diuresing [facility] 10-13-2023 Plan of care note Problem: Pain Goal: Patient goal is pain score less than 4, able to rest, and participant in treatment plan as appropriate Description: INTERVENTIONS: 1. Encourage patient or legal insurance service representative to report early pain and ask [...] per policy 9. Teach patient or legal insurance service representative interventions for comforting Outcome: Progressing Note: [...] at the bedside 7. Instruct patient/ patient insurance service representative about use of safety devices 8. Include patient/ patient insurance service representative in decisions related to safety Outcome: [...] hygiene technique 7. Identify and instruct patient/patient insurance service representative in use of appropriate isolation precautions for identified infection/symptoms 8. Provide and discuss with patient/patient insurance service representative on educational MDRO sheet 9. Encourage and monitor nutritional status daily and consult cottage master if indicated 10. Implement neutropenic guidelines as needed 11. Review exposure to history of communicable disease and recent travel history on admission 12. Encourage annual influenza vaccine 13. Encourage pneumonia vaccine Outcome: Progressing Note: Evaluation of progress towards goal: Pt afebrile and no outward signs of infection during shift. Problem: Knowledge Deficit Goal: Patient/patient insurance service representative demonstrates understanding of disease process, treatment [...] develop effective communication strategies 4. Include patient/patient insurance service representative in decisions related to communication Outcome: [...] Collaborate with ancillary departments 14. Include patient/patient insurance service representative in decisions related to anxiety Outcome: [...] 6. Collaborate with pastoral/spiritual care, social work program coordinator, mental health counselor as needed. 7. Instruct patient on diversional activities such as physical activity, distraction, and deep breathing exercises to assist with coping 8. Involve patient's insurance service representative in care Outcome: Progressing Note: Evaluation [...] supplement as ordered 13. Collaborate with clinical cottage master 14. Include patient/ patient's insurance service representative in decisions related to nutrition Outcome: [...] be free from fall Description: Interventions: 1. [place] to environment 2. Hourly rounds addressing the [...] non-skid footwear 11. Teach patient and patient insurance service representative to maintain environment for safety and [...] (cane, walker) within reach 19. Request patient insurance service representative bring adaptive equipment/mobility aids from home or obtain and provide as needed 20. Consult pharmacy regarding effects of med's affecting mobility, cognition, and alternatives 21. Obtain physician order for PT if risk factors associated with mobility are present 22. Obtain physician order for OT as appropriate 23. Utilize diversional activities 24. Educate patient and patient insurance service representative how to maintain a safe environment during visitation times (notify nurse prior to leaving bedside) 25. Consider appropriateness of medical or non-medical record transcriber 26. Set up voiding schedule as appropriate (every 2 hours) Outcome: Progressing Note: Evaluation of progress towards goal: No signs of falls during shift. [facility] 10-12-2023 History and physical note Images from the original note were not included. [facility] [address] [place] [address] HISTORY & PHYSICAL / CONSULT NOTE Ashvin [...] found to be in CHF with proBNP 99574, HS trop 62710, and K 2.1 which was repleted but [...] Past Medical History: Diagnosis Date Angina pectoris ([facility] Atherosclerosis of coronary artery bypass graft Atherosclerotic heart disease Coronary angioplasty status Coronary artery disease CVA (cerebral vascular accident) ([facility]) Dyspnea Hyperlipidemia Hypertension Hypotension Other chest pain Stroke ([facility]) Previous Surgical History: Past Surgical History: Procedure Laterality Date CARDIAC CATHETERIZATION Cardiac catheterization N/A 02/15/2023 Performed by Star Espinosa MD at [facility] Cardiac catheterization - LV cors w/graft check N/A 10/25/2020 Performed by Alexi Freeman MD at [facility]ATH [facility] Coronary angiogram and graft/ak chin N/A 02/15/2023 Performed by Star Espinosa MD at [facility] Coronary angiogram and left ventricular gram/pressure + graft/ak chin N/A 10/25/2020 Performed by Alexi Freeman MD at [facility] Coronary angiogram and left ventricular gram/pressure + graft/ak chin N/A 06/18/2016 Performed by Alexi Freeman MD at [facility]ATH [facility] CORONARY ANGIOPLASTY 12/08/2020 orbital atherectomy and 2 HARRY to prox and distal Circ, at [facility] per Dr. Madhav Ugalde CORONARY ARTERY BYPASS GRAFT 09/08/2014 HYSTERECTOMY INSERTION LOOP RECORDER 05/24/2016 Percutaneous coronary angioplasty left circumflex N/A 02/15/2023 Performed by Star Espinosa MD at [facility]ATH [facility] Stent drug-eluting left circumflex N/A 02/15/2023 Performed by Star Espinosa MD at [facility]ATH [facility] Allergies: Allergies Allergen Reactions [...] John APRN-SUNIL [START ON 10/13/2023] heparin infusion 08459 units/500 mL in 0.45% NaCl (50 units/mL premix) 300-3,500 Units/hr intravenous Continuous Parul John APRN-SUNIL magnesium sulfate IVPB 2000 mg/50 mL in iso-osmotic water (40 mg/mL premix) 2,000 mg intravenous PRN Parul R Jeb, DIAGNOSTIC SALES SPECIALIST-ANALOG CIRCUIT DESIGNER Or magnesium sulfate IVPB 4000 mg/100 mL in iso-osmotic water (40 mg/mL premix) 4,000 mg intravenous PRN Parul R Jeb, DIAGNOSTIC SALES SPECIALIST-ANALOG CIRCUIT DESIGNER potassium chloride (K-TAB,KLOR-CON) CR tablet 20-50 mEq 20-50 mEq oral PRN Parul R Jeb, DIAGNOSTIC SALES SPECIALIST-ANALOG CIRCUIT DESIGNER Or potassium chloride (KAYCIEL) 20 mEq/15 mL solution 20-50 mEq 20-50 mEq oral PRN Parul R Jeb, DIAGNOSTIC SALES SPECIALIST-ANALOG CIRCUIT DESIGNER potassium chloride IVPB 10 mEq/50 mL in water (0.2 mEq/mL premix) 10 mEq intravenous PRN Parul R Jeb, DIAGNOSTIC SALES SPECIALIST-ANALOG CIRCUIT DESIGNER Or potassium chloride IVPB 10 mEq/100 mL in water (0.1 mEq/mL premix) 10 mEq intravenous PRN Parul R Jeb, DIAGNOSTIC SALES SPECIALIST-ANALOG CIRCUIT DESIGNER sodium phosphate 20 mmol in sodium chloride 0.9 % 250 mL IVPB 20 mmol intravenous PRN Parul R Jeb, DIAGNOSTIC SALES SPECIALIST-ANALOG CIRCUIT DESIGNER Or sodium phosphate 20 mmol in sodium chloride 0.9 % 100 mL IVPB 20 mmol intravenous PRN Parul R Jeb, DIAGNOSTIC SALES SPECIALIST-ANALOG CIRCUIT DESIGNER Or sod phos di, mono-K phos mono (K-PHOS NEUTRAL) 250 mg tablet 2 tablet 2 tablet oral PRN Parul R Jeb, DIAGNOSTIC SALES SPECIALIST-ANALOG CIRCUIT DESIGNER sodium chloride 0.9 % infusion 10 mL/hr intravenous Continuous PRN Parul R Jeb, DIAGNOSTIC SALES SPECIALIST-ANALOG CIRCUIT DESIGNER sodium chloride 0.9 % infusion 10 mL/hr intravenous Continuous PRN Parul R Jeb, DIAGNOSTIC SALES SPECIALIST-ANALOG CIRCUIT DESIGNER sodium chloride 0.9 % infusion 10 mL/hr intravenous Continuous PRN Parul R Jeb, DIAGNOSTIC SALES SPECIALIST-ANALOG CIRCUIT DESIGNER Home Meds: Prior to Admission medications Medication [...] be continued indefinitely given significant disease in ak chin coronary arteries. Optimize medical therapy for coronary [...] be continued indefinitely given significant disease in ak chin coronary arteries. Optimize medical therapy for coronary [...] Acute on chronic HFrEF Elevated HS troponin 79165 ASCVD h/o CABG and s/p PCI Cx [...] 3,000 mg intravenous PRN Parul R Jeb, DIAGNOSTIC SALES SPECIALIST-ANALOG CIRCUIT DESIGNER clopidogreL (PLAVIX) tablet 75 mg 75 mg oral Daily Parul John, DIAGNOSTIC SALES SPECIALIST-ANALOG CIRCUIT DESIGNER dextrose (GLUTOSE) 40 % gel 15 g 15 g oral PRN Parul Hassann, DIAGNOSTIC SALES SPECIALIST-ANALOG CIRCUIT DESIGNER dextrose 5 % (D5W) infusion 100 mL/hr intravenous Continuous PRN Parul Hassann, DIAGNOSTIC SALES SPECIALIST-ANALOG CIRCUIT DESIGNER dextrose 50 % in water (D50W) 50% solution 25 mL 25 mL intravenous PRN Parul John, DIAGNOSTIC SALES SPECIALIST-ANALOG CIRCUIT DESIGNER glucagon HCL injection 1 mg 1 mg intramuscular PRN Parul Hassann, DIAGNOSTIC SALES SPECIALIST-ANALOG CIRCUIT DESIGNER heparin (porcine) injection 2,000 Units 2,000 Units intravenous PRN Parul Holder Jeb, DIAGNOSTIC SALES SPECIALIST-ANALOG CIRCUIT DESIGNER heparin infusion 01831 units/500 mL in 0.45% NaCl (50 units/mL premix) 300-3,500 Units/hr intravenous Continuous Parul Hassann, DIAGNOSTIC SALES SPECIALIST-ANALOG CIRCUIT DESIGNER 16 mL/hr at 10/13/23 0013 800 Units/hr at 10/13/23 0013 magnesium sulfate IVPB 2000 mg/50 mL in iso-osmotic water (40 mg/mL premix) 2,000 mg intravenous PRN Parul Holder Jeb, DIAGNOSTIC SALES SPECIALIST-ANALOG CIRCUIT DESIGNER Or magnesium sulfate IVPB 4000 mg/100 mL in iso-osmotic water (40 mg/mL premix) 4,000 mg intravenous PRN Parul John, DIAGNOSTIC SALES SPECIALIST-ANALOG CIRCUIT DESIGNER midodrine (PROAMATINE) tablet 5 mg 5 mg oral Q8H PRN Parul Hassann, DIAGNOSTIC SALES SPECIALIST-ANALOG CIRCUIT DESIGNER potassium chloride (K-TAB,KLOR-CON) CR tablet 20-50 mEq 20-50 mEq oral PRN Parul Hassann, DIAGNOSTIC SALES SPECIALIST-ANALOG CIRCUIT DESIGNER Or potassium chloride (KAYCIEL) 20 mEq/15 mL solution 20-50 mEq 20-50 mEq oral PRN Parul Holder Jeb, DIAGNOSTIC SALES SPECIALIST-ANALOG CIRCUIT DESIGNER potassium chloride IVPB 10 mEq/50 mL in water (0.2 mEq/mL premix) 10 mEq intravenous PRN Parul R Jeb, DIAGNOSTIC SALES SPECIALIST-ANALOG CIRCUIT DESIGNER Or potassium chloride IVPB 10 mEq/100 mL in water (0.1 mEq/mL premix) 10 mEq intravenous PRN Parul Hassann, DIAGNOSTIC SALES SPECIALIST-ANALOG CIRCUIT DESIGNER ranolazine (RANEXA) 12 hr tablet 1,000 mg 1,000 mg oral BID Parul R Jeb, DIAGNOSTIC SALES SPECIALIST-ANALOG CIRCUIT DESIGNER rosuvastatin (CRESTOR) tablet 20 mg 20 mg oral Daily Parul R Jeb, DIAGNOSTIC SALES SPECIALIST-ANALOG CIRCUIT DESIGNER sodium phosphate 20 mmol in sodium chloride 0.9 % 250 mL IVPB 20 mmol intravenous PRN Parul R Jeb, DIAGNOSTIC SALES SPECIALIST-ANALOG CIRCUIT DESIGNER Or sodium phosphate 20 mmol in sodium chloride 0.9 % 100 mL IVPB 20 mmol intravenous PRN Parul R Jeb, DIAGNOSTIC SALES SPECIALIST-ANALOG CIRCUIT DESIGNER Or sod phos di, mono-K phos mono (K-PHOS NEUTRAL) 250 mg tablet 2 tablet 2 tablet oral PRN Parul R Jeb, DIAGNOSTIC SALES SPECIALIST-ANALOG CIRCUIT DESIGNER sodium chloride 0.9 % infusion 10 mL/hr intravenous Continuous PRN Parul R Jeb, DIAGNOSTIC SALES SPECIALIST-ANALOG CIRCUIT DESIGNER sodium chloride 0.9 % infusion 10 mL/hr intravenous Continuous PRN Parul R Jeb, DIAGNOSTIC SALES SPECIALIST-ANALOG CIRCUIT DESIGNER sodium chloride 0.9 % infusion 10 mL/hr intravenous Continuous PRN Parul R Jeb, DIAGNOSTIC SALES SPECIALIST-ANALOG CIRCUIT DESIGNER Laboratory CBC: BMP: Troponin I Physical Exam [...] This note was completed using a voice director of optimization system. Every effort was made to ensure accuracy. However, inadvertent computerized director of optimization errors may be present. [facility] Work Phone: 10-12-2023 History of Present illness Narrative Images from the original note were not included. [facility] Significant Event Note I am on-call covering for my group today. I am at [facility]. This patient presented to the ER at [facility]. I was paged, called back promptly, spoke to ER provider, reviewed EMR, discussed case, provided recommendations as detailed below. 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 History of CABG and subsequent HARRY Profound hypokalemia 2.1 in the ER at [facility] receiving replacements COVID test was negative at [place] [facility] Given profound hypokalemia and risk for spontaneous malignant arrhythmia recommend admission to the ICU or CCU Access transfer team is working on the transfer arrangements and logistics as well as bed availability here at [facility] Recommend to the ER that patient needs to receive ICU dosing oral and IV potassium to replenish her total body potassium depletion She is on torsemide at home and she will need to be on a potassium supplement She will receive anti heart failure therapies while here in [facility] as well as medical therapy for CAD and cardiomyopathy I discussed with ER provider and access transfer team as well as updated the night team covering here at [facility] and the arrangements have been made for patient to be transferred pending the logistics and bed availability Please contact our cardiology service if any changes in patient's status overnight Thank you Jonathan Pizarro DO, FACC, FACOI This note was completed using a voice director of optimization system. Every effort was made to ensure accuracy. However, inadvertent computerized director of optimization errors may be present. documented in this encounter [facility] 08-22-2023 Telephone encounter Note Patient left message [...] not need a different prescription sent in. [facility] 08-22-2023 Miscellaneous Notes Patient left message on [...] prescription sent in. documented in this encounter [facility] 08-21-2023 History of Present illness Narrative Reason [...] Bilateral FRANCIS/PVR study performed on 05-29-2023 at [place] showed: FRANCIS is falsely elevated suggesting medial calcinosis: TBI is consistent with mild to moderate arterial disease. Waveform data however are consisent with no significant arterial obstruction at rest. 08-06-2023: Recent RT lower extremity angioplasty by Dr. Lorenoz. Ankle / Foot: MUSCLE STRENGTH: 5/5 to [...] decisions I made. 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 Hip surgery [...] 06/25/2023 11:28 AM Patient: Ashvin Rene MR#: [id number] : 1955 Age: 67 y.o. Referring Physician: [...] capsule by mouth daily. Ergocalciferol 1.25 MG (70477 UT) capsule Take 1 capsule by mouth [...] 06/25/2023 11:28 AM Patient: Ashvin Rene MR#: [id number] : 1955 Age: 67 y.o. Referring Physician: [...] [x]cane, []bracing Are you followed by a energy conservation technician? [x] [] Name: Dr. Ryan Gordon Are [...] capsule by mouth daily. Ergocalciferol 1.25 MG (04080 UT) capsule Take 1 capsule by mouth [...] daily., Disp: , Rfl: Ergocalciferol 1.25 MG (24494 UT) capsule, Take 1 capsule by mouth [...] Rfl: No Known Allergies documented in this [facility]11-07-2022 Evaluation note* Encounter Date Diagnosis [...] Other Skin wound mate roque was printed [employer] Other 02-02-2022 Note [id number] NoteEducation Materials Obstetrics and Gynecology Edema [...] fluid you drink (fluid restriction). ? Take hxcj-wes-fckfywx and prescription medicines only as told by [...] provider. Document Revised: 07/03/2018 Document Reviewed: 07/18/2017 [employer] Patient Education ? 2019 [employer].[facility] [id number] Note [facility] Clinical Discharge Summary PERSON INFORMATION Name ASHVIN RENE Age 65 Years 1955 Sex FEMALE Language Eritrean PCP TUSHAR SOLANO JR. Marital Status Med Service Med/Surg Acct# Arrival 08/06/2021 17:10:50 Visit Reason ANEMIA, ELEVATED TROPONIN Acuity LOS 007 15:53 Address: [address] [place] [address] Comment: PROVIDER INFORMATION VITALS INFORMATION Vital Sign [...] Medication List: New Medications [facility], [address] [place] [address] [phone], [phone] ferrous sulfate (ferrous sulfate 325 mg (65 mg elemental iron) oral tablet) 1 tab(s) Oral 2 times aday for 30 Days. Refills: 1. torsemide (torsemide 20 mg oral tablet) 1 tab(s) Oral every other day for 30 Days. [facility] Refills: 1. Medications That Were Updated - Follow Below Instructions Other Medications Updated: fludrocortisone (fludrocortisone 0.1 mg oral tablet) 0.5 tab(s) Oral every day. TAKE IN MORNING MEAL, HOLD IF STANDING BP [id number]. Medications to Continue That Have Not Changed [...] mg oral tablet) potassium chloride (Potassium Chloride (Nep-Czyi-Uob 10) 10 mEq oral tablet, extended release) [...] range between ( 1.3 and 2.9 ) [place] Abs#: 0.4 x103/mcL -- Normal range between ( 0.0 and 0.8 ) Auto Baso %: 1.0 % -- Normal range between ( 0.2 and 2.0 ) Auto [place] %: 7 % -- Normal range between [...] ( 101 and 111 (more content not included)...[facility] [id number] NoteDATE OF PROCEDURE: 08/10/2021 SURGEON: Noe Reed MD ANESTHESIA: Rony Ordonez MD ([facility]) PREOPERATIVE DIAGNOSIS: GI-bleed. POSTOPERATIVE DIAGNOSES: 1. Normal [...] well. She will be returned to the [address] [place] [address]. We will await the pathology results. Noe Reed M.D. JOB #: [id number] nery CC: Tushar Solano MD [Electronically Signed on: 08/22/2021 08:54 EST] Noe Reed MD [Verified on: 08/22/2021 08:54 EST] Noe Reed MD [Transcribed on: 08/10/2021 12:12 EST] [facility]09-30-2021 Evaluation note* Encounter Date Diagnosis Assessment Notes Treatment Notes Treatment Clinical Notes Mar, Nausea & vomiting (ICD-10 - R11.2) Nausea and vomiting: adult material was printed Mar, Epigastric pain (ICD-10 - R10.13) [employer] Other 05-28-2021 NoteHNO ID: [id number] Author: Jaimee Pierce RN Service: Care Management [...] 08, 2020 TIME: 10:58 AM PAGER/CONTACT #: [phone]-28-[facility] NoteHNO ID: [id number] Author: Jaimee Pierce RN Service: Care Management [...] 08, 2020 TIME: 9:57 AM PAGER/CONTACT #: [phone] Health [facility]05-27-2021 NoteHNO ID: [id number] Author: Nay Joseph MD Service: ? Author [...] Could not cross stenoses with [employer] or [employer] flex 135 mm microcatheters. 7Fr Telescope guide [...] No further targets for coronary revascularization. 2. child monitor DAPT STAFF PHYSICIAN: Dirk Joseph MD DATE OF SERVICE: 12/07/2020 TIME OF SERVICE: 6:19 PM (Procedure performed with Dr. Milli Foster and Dr. Erika Kohler)[facility]05-27-2021 NoteProcedure (CATHMN) ASHVIN RENE ([id number]) 1955 F Date Time Provider Department 12/07/20 NAY JOSEPH CATHND During your visit today, we recorded the [...] No further targets for coronary revascularization. 2. assisted DAPT STAFF PHYSICIAN: Dirk Joseph MD DATE OF SERVICE: 12/07/2020 TIME OF SERVICE: 6:19 PM (Procedure performed with Dr. Milli Foster and Dr. Erika Kohler) Allergies As of Date: 12/07/2020 Noted Allergy Reaction CODEINE 11/24/2020 1 - Mental Status Change 4 - Hives Date Reviewed: 11/24/2020 Reviewed by: Demetra Guadalupe RN - Fully Assessed Primary Visit Diagnosis:Coronary artery disease of ak chin artery of ak chin heart with stable angina pectoris (HCC) [I25.118] [...] 12/07/2020 Noted Resolved Coronary artery disease of ak chin artery of otilio*11/24/2020 S/P CABG (coronary artery bypass graft) [Z95.1] 11/24/2020 Pure hypercholesterolemia [E78.00] (more content not included)... [facility]05-27-2021 NoteHNO ID: [id number] Author: Milli Foster MD Service: Cardiovascular Medicine Author Type: Fellow Type: Procedures Filed: 12/08/2020 12:27 PM Note Text: Ashvin Rene DATE: December 08, 2020 Attending: Dr. Nay Joseph Diagnostic Fellow: Erika Kohler MD Interventional Fellow: Milli Foster MD HISTORY OF PRESENT ILLNESS: Ms. Rene is a 65 year old female with a history of coronary artery disease s/p CABG 2014 (patent SVG-RCA and CHURHC-LAD), hypertension and hyperlipidemia who presents today for [...] Milli Foster MD Fellow, Interventional Cardiology Pager: [phone] 12/08/2020 11:34 [facility]05-14-2021 NoteHNO ID: [id number] Author: Nay Joseph MD Service: ? Author Type: Physician Type: Progress Notes Filed: 11/29/2020 7:54 AM Note Text: [facility] Department of Cardiovascular Medicine SECTION OF INTERVENTIONAL CARDIOLOGY OUTPATIENT VISIT DATE November 23, 2020 OUTPATIENT VISIT TYPE NEW PRIMARY CARE PHYSICIAN: Tushar Solano Jr, DO (Dr) [address] [place] [address] [place] [address] REFERRING PHYSICIAN: Waqas Mabry MD [facility] [place] [address] [facility] [address] CHIEF COMPLAINT: No chief complaint on file. [...] resolved after CABG) 2015 CVA and (?) [place] 05/24/16 Echo ? Normal left ventricular end-diastolic [...] area of anterior/anterolateral (more content not included)... [facility]04-29-2021 Miscellaneous Notes* Telephone Encounter - Pilar GlenysAshvin - 11/09/2020 10:10 AM EDT Patient: Ashvin Rene Date of : 1955 Patient phone number: [phone] Referring Provider for the encounter: Dr Waqas Mabry Requesting Provider: Cardiology Reason for requesting visit (RFV/signs and symptoms/diagnosis): 2nd Opinion - Severe CAD Person calling: caregiver: ERIC Return call to: self Medical Records/Insurance Card scanned into [employer]: Yes Comments: N/A documented in this encounterSt. 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)- Primary Gangrene (CMS/HCC) Gangrene Pain in toe of right foot Pain in soft tissues of limb Arteriosclerosis of arteries of extremities (CMS/HCC) [facility] Diagnosis Stenosis of left carotid artery Occlusion and stenosis of carotid artery without mention of cerebral infarction Stenosis of left carotid artery- Primary Occlusion and stenosis of carotid artery without mention of cerebral infarction [facility] this encounter [facility]* Diagnosis Decompensated heart failure (CMS-HCC)- Primary NSTEMI (non-ST elevated myocardial infarction) (CMS-HCC) Acute myocardial infarction, subendocardial infarction, episode of care unspecified Decompensated heart failure (CMS-HCC) NSTEMI (non-ST elevated myocardial infarction) (CMS-HCC) Acute myocardial infarction, subendocardial infarction, episode of care unspecified NSTEMI (non-ST elevated myocardial infarction) (CMS-HCC) Acute myocardial infarction, subendocardial infarction, episode of care unspecified documented in this encounter [facility] SystemHistory general Narrative - Reported* Type Description Date Medical History Cholesterol Medical History heart disease Medical History hypertension Surgical History left hip Surgical History stomach Surgical History heart stent Surgical History bypass Surgical History gastric bypass Hospitalization History see above [employer] Other InstructionsNot on filedocumented in this encounter [facility] SystemInstructionsNot on filedocumented in this encounter [facility] SystemReason for referral (narrative)* Consultation (Routine) - Pending Review Specialty Diagnoses / Procedures Referred By Teofilo t Referred To Contact Cardiology Diagnoses NSTEMI (non-ST elevated myocardial infarction) ([facility]) Decompensated heart failure ([facility]) Kallie Roman MD [address], [address] [place] [address] [facility] [address] [place] [address] Referral ID Status Reason Start Date Expiration Date Visits Requested Visits Authorized [id number] Pending Review Specialty Services Required 10/15/2023 10/14/2024 1 1 * Misc (Routine) - Pending Review Specialty Diagnoses / Procedures Referred By Contac t Referred To Contact Procedures Discharge Follow-Up Kallie Roman MD [address], [address] [place] [address] Referral ID Status Reason Start Date Expiration Date V isits Requested Visits Authorized [id number] Pending Review 10/15/2023 10/14/2024 1 1 * Misc (Routine) - Pending Review Specialty Diagnoses / Procedures Referred By Contac t Referred To Contact Diagnoses NSTEMI (non-ST elevated myocardial infarction) ([facility]-H[facility]) Decompensated heart failure ([facility]) Procedures Follow-up with primary care provider Kallie Roman MD [address], [address] [place] [address] Referral ID Status Reason Start Date Expiration Date V isits Requested Visits Authorized [id number] Pending Review 10/15/2023 10/14/2024 1 1 * Misc (Routine) - Pending Review Specialty Diagnoses / Procedures Referred By Contac t Referred To Contact Procedures No dressing needed Kallie Roman MD [address], [address] [place] [address] Referral ID Status Reason Start Date Expiration Date V isits Requested Visits Authorized [id number] Pending Review 10/15/2023 10/14/2024 1 1 * Misc (Routine) - Pending Review Specialty Diagnoses / Procedures Referred By Contac t Referred To Contact Procedures Adult Kallie Ashley MD [address] [address] Referral ID Status Reason Start Date Expiration Date V isits Requested Visits Authorized [id number] Pending Review 10/15/2023 10/14/[address] [facility] Advance Directives No Advanced Directives Records Found [...] worsening of your eyesight. Please call your conservation of resources commissioner during normal business hours. If after business hours call Dr. eDng Humphreys at his cell [phone] or his office [phone]. Summary Purpose Reason for Referral Specialty Diagnoses / Procedures Referred By Teofilo serrato Referred To Contact Diagnoses Stenosis of left carotid artery Procedures Vas carotid duplex bilateral Mariama Veras MD [address] [facility] [place] [address] [facility] [address] [place] [address] Phone: [phone] Referral ID Status Reason Start Date Expiration Date Visits Re quested Visits Authorized [id number] Closed 10/06/2023 10/05/2024 1 1 Specialty Diagnoses / Procedures Referred By Teofilo serrato Referred To Contact Diagnoses Left knee pain, unspecified chronicity Norman Braga MD [address] [place] [address] Referral ID Status Reason Start Date Expiration Date V isits Requested Visits Authorized [id number] New Request 06/25/2023 07/19/2024 1 1 Scheduling Instructions . Specialty Diagnoses / Procedures Referred By Contac t Referred To Contact Diagnoses Left knee pain, unspecified chronicity Procedures XR KNEE LEFT 4+ VIEWS Norman Braga MD [address] [place] [address] Referral ID Status Reason Start Date Expiration Date V isits Requested Visits Authorized [id number] Pending Review 06/18/2023 07/12/2024 1 1 Specialty Diagnoses / Procedures Referred By Contac t Referred To Contact Diagnoses Left knee pain, unspecified chronicity Procedures XR BONE LENGTH STUDY Norman Braga MD [address] [place] [address] Referral ID Status Reason Start Date Expiration Date V isits Requested Visits Authorized [id number] Pending Review 06/18/2023 07/12/2024 1 1 Additional Source Comments Source Comments (unrecognize d section and content) In the event this informatio n is protected by the Federal Confidentiality of Alcohol and Drug Abuse Patient Records regulations: The Federal rules restrict any use of the information to criminally investigate or prosecute any alcohol or drug abuse patient.[facility] Reason for Visit (unrecogniz ed section and content) Reason Comments External Referrals/resources Specialty Diagnoses / Procedures Referred By Contac t Referred To Contact Diagnoses Left knee pain, unspecified chronicity Procedures XR BONE LENGTH STUDY Norman Braga MD [address] [place] [address] Referral ID Status Reason Start Date Expiration Date V isits Requested Visits Authorized [id number] Pending Review 06/18/2023 07/12/2024 1 1 Reason Comments Pain Reason Onset Date Comments Santyl 08/22/2023 Specialty Diagnoses / Procedures Referred By Contac t Referred To Contact Diagnoses Decompensated heart failure ([facility]) CHF (congestive heart failure) ([facility]) Decompensated Heart Failure, Severe Hypokalemia Jonathan Pizarro DO [address] [place] [address] Referral ID Status Reason Start Date Expiration Date Visits Re quested Visits Authorized [id number] 1 1 INFORMATION SOURCE (unrecogn ized section and content) DATE CREATED AUTHOR 03/12/2021 [facility] DATE CREATED AUTHOR AUTHOR'S ORGANIZ ATION 08/13/2021 [facility] DATE CREATED AUTHOR AUTHOR'S ORGANIZ ATION 09/26/2021 [facility] DATE CREATED AUTHOR AUTHOR'S ORGANIZ ATION 10/20/2022 [facility] DATE CREATED AUTHOR AUTHOR'S ORGANIZ ATION 07/04/2023 [facility] DATE CREATED AUTHOR AUTHOR'S ORGANIZ ATION 08/20/2023 [facility] DATE CREATED AUTHOR AUTHOR'S ORGANIZ ATION 10/16/[address] [facility] DATE CREATED AUTHOR AUTHOR'S ORGANIZ ATION 10/18/2023 [facility] DATE CREATED AUTHOR AUTHOR'S ORGANIZ ATION 10/25/2023 [facility] DATE CREATED AUTHOR AUTHOR'S ORGANIZ ATION 02/19/2024 [facility] EPIC Care Teams (unrecognized sec [...] Provider Active ZAC Renae Attending Provider Active Thread Grinder Relationship Specialty Start Date End Date Tushar Solano Jr., DO [address] [place] [address] PCP - General Internal Medicine 05/28/23 Thread Grinder Relationship Specialty Start Date End Date Tushar Solano Jr., DO [address] [place] [phone] PCP - General Internal Medicine 05/28/23 Thread Grinder Relationship Specialty Start Date End Date Tushar Solano MD [address] [place] [address] PCP - General Internal Medicine 04/08/23 Thread Grinder Relationship Specialty Start Date End Date Tushar Solano MD [address] [place] [phone] PCP - General Internal Medicine 04/08/23 Thread Grinder Relationship Specialty Start Date End Date Tushar Solano MD [address] [place] [address] [phone] PCP - General Internal Medicine 04/08/23 Thread Grinder Relationship Specialty Start Date End Date Tushar Solano Jr., DO [address] [place] [address] PCP - General Internal Medicine 05/24/16 Thread Grinder Relationship Specialty Start Date End Date Tushar Solano Jr., [address] [place] [address] PCP - General Internal Medicine 05/24/16 Thread Grinder Relationship Specialty Start Date End Date Tushar Solano Jr., DO [address] [place] [address] [phone] PCP - General Internal Medicine 05/24/16 Goals (unrecognized section and content) Goals may be documented in a n alternate section Scheduled Active and Recently Administ ered Medications (unrecognized section and content) Medication Order 10/13/2023 10/14/2023 10/15/2023 aspirin chewable tablet 81 mg 81 mg, oral, Daily, First dose on Fri10/13/23 at 0900 0830 (Given - Provider: Gely Chua RN) 0729 ([facility] Hold - Provider: Automatic Transfer Provider - Reason: Patient not available)0900 (Dose Auto Held - Provider: Automatic Transfer Provider)0917 ([facility] Unhold - Provider: Automatic Transfer Provider) 0958 [...] (Given - Provider: Gely Chua RN) 0729 ([facility] Hold - Provider: Automatic Transfer Provider - Reason: Patient not available)0900 (Dose Auto Held - Provider: Automatic Transfer Provider)0917 ([facility] Unhold - Provider: Automatic Transfer Provider)1021 (Given - Provider: Gely Chua RN) 0958 (Given - Provider: David Florez RN) collagenase (SANTYL) ointment 1 Application 1 Application, topical, Daily, First dose on Fri10/13/23 at 1500, Apply to thigh wound . 2034 (Given - Provider: Jolene Almaguer RN) 0729 ([facility] Hold - Provider: Automatic Transfer Provider - Reason: Patient not available)0900 (Dose Auto Held - Provider: Automatic Transfer Provider)0917 ([facility] Unhold - Provider: Automatic Transfer Provider) 1000 [...] 0347 (Given - Provider: Jolene Almaguer RN)0729 ([facility] Hold - Provider: Automatic Transfer Provider - Reason: Patient not available)0917 ([facility] Unhold - Provider: Automatic Transfer Provider) furosemide [...] Entry - Provider: Gely Chua RN) 0729 ([facility] Hold - Provider: Automatic Transfer Provider - Reason: Patient not available)0917 ([facility] Unhold - Provider: Automatic Transfer Provider) metoprolol succinate XL (TOPROL XL) 24 hr tablet 25 mg (CANCELED) 25 mg, oral, Daily, First dose on Fri10/13/23 at 1630, Look-alike/sound-alike medication - verify indication for use. Do not crush or chew. 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 728 ([facility] Hold - Provider: Automatic Transfer Provider - Reason: Patient not available)09 ([facility] Unhold - Provider: Automatic Transfer [...] mg/dL after initial treatment, repeat treatment. 728 ([facility] Hold - Provider: Automatic Transfer Provider - Reason: Patient not available)916 ([facility] Unhold - Provider: Automatic Transfer [...] treatment. VESICANT (RED) Warning: HYPERTONIC solution. 728 ([facility] Hold - Provider: Automatic Transfer Provider - Reason: Patient not available)916 ([facility] Unhold - Provider: Automatic Transfer Provider) diphenhydrAMINE (BENADRYL) injection 50 mg(Linked Group 2) 50 mg, intravenous, As needed, for previously documented contrast allergy, Starting on Fri10/13/23 at 1118, Scheduling/ADT, Administer one hour prior to procedure Look-alike/sound-alike medication - verify indication for use. 728 ([facility] Hold - Provider: Automatic Transfer Provider - Reason: Patient not available)09 ([facility] Unhold - Provider: Automatic Transfer [...] (See Alternative - Provider: Gely Chua, RN)0729 ([facility] Hold - Provider: Automatic Transfer Provider - Reason: Patient not available)0917 ([facility] Unhold - Provider: Automatic Transfer [...] medication - verify indication for use. 0729 ([facility] Hold - Provider: Automatic Transfer Provider - Reason: Patient not available)0917 ([facility] Unhold - Provider: Automatic Transfer [...] over a minimum of 1 hour. 0729 ([facility] Hold - Provider: Automatic Transfer Provider - Reason: Patient not available)09 ([facility] Unhold - Provider: Automatic Transfer [...] 1.2 = 40 mEq VESICANT (YELLOW) 07 ([facility] Hold - Provider: Automatic Transfer Provider - Reason: Patient not available)09 ([facility] Unhold - Provider: Automatic Transfer [...] medication - verify indication for use. 0729 ([facility] Hold - Provider: Automatic Transfer Provider - Reason: Patient not available)09 ([facility] Unhold - Provider: Automatic Transfer [...] with a full glass of water. 07 ([facility] Hold - Provider: Automatic Transfer Provider - Reason: Patient not available)0917 ([facility] Unhold - Provider: Automatic Transfer Provider) sodium chloride 0.9 % flush 3 mL 3 mL, intravenous, As needed, line care, before and after each intermittent use, Starting on Fri10/14/23 at 0913 sodium chloride 0.9 % infusion 10 mL/hr, intravenous, Continuous PRN, to maintain patency of lines, Starting on 10/12/23 at 2321, Line #1 0729 ([facility] Hold - Provider: Automatic Transfer Provider - Reason: Patient not available)0917 ([facility] Unhold - Provider: Automatic Transfer Provider) sodium chloride 0.9 % infusion 10 mL/hr, intravenous, Continuous PRN, to maintain patency of lines, Starting on 10/12/23 at 2321, Line #2 0729 ([facility] Hold - Provider: Automatic Transfer Provider - Reason: Patient not available)0917 ([facility] Unhold - Provider: Automatic Transfer Provider) sodium chloride 0.9 % infusion 10 mL/hr, intravenous, Continuous PRN, to maintain patency of lines, Starting on 10/12/23 at 2321, Line #3 0729 ([facility] Hold - Provider: Automatic Transfer Provider - Reason: Patient not available)0917 ([facility] Unhold - Provider: Automatic Transfer [...] complete. Infuse using central line access. 07 ([facility] Hold - Provider: Automatic Transfer Provider - Reason: Patient not available)0917 ([facility] Unhold - Provider: Automatic Transfer [...] BE BASED ON THE PRIMARY CLINICAL RECORDS. [employer] [facility]. provides no warranty or guarantee of the accuracy or completeness of information in this document.
[2024-04-27 12:28] LABS: Bilirubin Urine NEGATIVE (NEGATIVE); Blood Urine NEGATIVE (NEGATIVE); Clarity Urine CLOUDY (CLEAR); Color Urine YELLOW (YELLOW); Glucose Urine UA >=1000 mg/dL (NEGATIVE); Ketones Urine NEGATIVE (NEGATIVE); Leukocyte Esterase Urine SMALL (NEGATIVE); Nitrite Urine NEGATIVE (NEGATIVE); Protein Urine NEGATIVE (NEG/TRACE); Specific Gravity Urine 1.025 (1.005-1.025); Urobilinogen Urine 0.2 EU/dL (0.2-1.0); pH Urine 5.5 (5.0-9.0)
[2024-04-27 12:31] LABS: Urine Microscopic Indicated YES
[2024-04-27 12:51] LABS: RBC Urine 0-2 #/HPF (0-2); WBC Urine >100 #/HPF (NONE SEEN)
[2024-04-27 12:52] LABS: Bacteria Urine LARGE #/HPF (NONE SEEN); Cast Seen? NONE SEEN #/LPF (NONE SEEN); Crystals Seen? None Seen #/HPF (None Seen); Mucus Urine NONE SEEN (NONE SEEN); Squamous Epithelial Cell Urine RARE #/LPF (NONE/RARE); Urine Culture Indicated YES
== END 2024-04-27 11:58 | disposition home or self-care (01) ==
LOC: LAB 11:59
PROVIDERS: PCP Internal Medicine; Visit Provider Internal Medicine
DX: N39.0 Urinary tract infection, site not specified (principal)
CPT/HCPCS: 81001; 87086; 87150; 87186

== ENCOUNTER 2024-05-03 09:10 | Outpatient (OUT) | payer MEDICARE, SELFPAY ==
--- NOTE | 2024-05-03 | XR_ITS ---
[address] [address] Patient Name: ASHVIN RENE MRN: [id number] date: 1955 Sex: F Assigned Patient Location: Current Patient Location: Accession/Order Number: [id number] Exam Date: 05/03/2024 10:00 Report Date: 05/05/2024 05:52 At the request of: LAURIE ARTEAGA Procedure: XR hip RT 2V w/ pelvis PROCEDURE: XR hip RT 2V w/ pelvis HISTORY: RIGHT HIP AND PELVIS PAIN COMPARISON: XR hip right 04/05/2024 FINDINGS: BONES:Prior repair of right hip fracture via intramedullary ismael and compression screw. Fracture line is still visible. Remote surgical repair of left femur. SOFT TISSUES:No visible soft tissue swelling. EFFUSION:None visible. OTHER: Moderate atherosclerotic disease. XR/XR hip RT 2V w/ pelvis IMPRESSION: 1. Stable alignment of prior right femoral neck fracture and surgical repair. Electronically authenticated by: LAURIE MEJÍA Date: 05/05/2024 05:52
--- OUTSIDE RECORDS SUMMARY | 2024-05-03 09:33 | XMS_ITS | CCD ---
Author Organization [facility] Care Team Providers Care Anatomical Embalmer Name Role Phone Tushar Solano Primary Care [...] Attending Unavailable VALONE, DR DE Admitting Unavailable CATAUMET, DR YARY Burleson Consulting Unavailable Russ Christopher [...] atorvastatin; Translations: [atorvastatin] Drug Allergy 06-18-20 16 [facility], [facility] (12 sources) Cefadroxil; Translations: [cefadroxil] Drug Allergy 06-18-20 16 [facility] (14 sources) Codeine; Translations: [Codeine] Drug Allergy 10-12-19 15 Hives, Hallucinations , [facility] (3 sources) Dipyridamole; Translations: [dipyridamole] Drug Allergy 05-30-20 21 Unknown Reaction [facility] (6 sources) Fenofibrate; Translations: [fenofibrate] Drug Allergy 06-18-20 16 [facility] (12 sources) fluvoxaMINE; Translations: [fluvoxamine] Drug Allergy 06-18-20 16 [facility] (12 sources) nefazodone; Translations: [nefazodone] Drug Allergy 06-18-20 16 [facility] (12 sources) Niacin; Translations: [niacin] Drug Allergy 06-18-20 16 [facility] (6 sources) Simvastatin; Translations: [simvastatin] Drug Allergy 05-30-20 21 [facility] (1 source) Aspirin / Dipyridamole Drug Allergy 07-14-19 13 [facility] (1 source) Cefadroxil Drug Allergy 10-12-19 15 [facility] (1 source) Dextroamphetamine Drug Allergy 10-12-19 15 [facility] (1 source) Fenofibrate Drug Allergy 10-12-19 15 [facility] (1 source) fluvoxaMINE Drug Allergy 10-12-19 15 [facility] (1 source) nefazodone Drug Allergy 10-12-19 15 [facility] (1 source) Niacin Drug Allergy 10-12-19 15 [facility] (1 source) Simvastatin Drug Allergy 10-12-19 15 [facility] (3 sources) Aspirin / Dipyridamole Drug Allergy 04-08-20 23 Other [facility] Work Phone: (3 sources) Fluconazole Allergy to substance 04-08-20 23 Rash [facility] (3 sources) Aspirin / Dipyridamole; Translations: [ASPIRIN-DIPYRIDAMOL E] Drug Allergy 06-18-20 16 [employer] Work Phone: (6 sources) Fenofibrate; Translations: [FENOFIBRATE MICRONIZED] Drug Allergy 06-18-20 16 [employer] (4 sources) Metoprolol; Translations: [METOPROLOL] Drug Allergy 09-09-19 24 Other (See Comments) [employer] Medications Current Medications Medication Drug Class(es) Dates [...] Start: 11-25-2022 take 2 tablets by mo [facility] once daily calcium citrate 250 mg calcium [...] mg/ml ophthalmic solution (3 sources) Plasma Volume Electric Distribution Checker, Non-Standardized Chemical Allergen Artificial Tear Solution (Soothe [...] by mouth every week Ergocalciferol 1.25 MG (51554 UT) capsule Take 1 capsule by mouth [...] take 1 tablet by mouth at [facility] in ferrous sulfate 325 (65 Fe) MG EC [...] Anti-coagulant Start: 10-13-2023 End: 10-14-2023 heparin infusion 30716 units/500 mL in 0.45% NaCl (50 units/mL [...] graft with unstable angina pectoris, unspecified whether [place] or transplanted heart ([facility]) Take [...] Coronary arteriosclerosis; Translations: [Atherosclerotic heart disease of [place] coronary artery without angina pectoris] Onset: 10-19-2020 03-05-2023 Chronic Coronary atherosclerosis and other heart disease (1 source) Coronary atherosclerosis and other heart disease; Translations: [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 Comment on above: Performed By: #### P INR, 03949-2, 718-7, PLTCT, BMP, 69863-0 #### [facility] ([id number]) [address], [address] [place] [address] Chloride [Moles/Vol] 97 mmol/L Low 98-109 [facility] Comment on above: Performed By: #### P INR, 49521-1, 718-7, PLTCT, BMP, 86062-4 #### [facility] ([id number]) [address], [address] [place] [address] CO2 [Moles/Vol] 28 mmol/L Normal 22-32 [facility] Comment on above: Performed By: #### P INR, 43848-1, 718-7, PLTCT, BMP, 89726-4 #### [facility] ([id number]) [address], [address] [address] Creatinine [Mass/Vol] 0.88 mg/dL Normal 0.40-1.00 [facility] Comment on above: Result Comment: METH OD TRACEABLE TO IDMS STANDARD Performed By: #### P INR, 03869-3, 718-7, PLTCT, BMP, 16395-4 #### [facility] ([id number]) [address], [address] [address] GFR/1.73 sq M.predicted among non-blacks MDRD (S/P/Bld) [Vol rate/Area] 71 mL/min/{1.73_m2} Normal >59 [facility] Comment on above: Result Comment: Reported eGFR is based on the CKD-EPI 2020 equation that does not use a race coefficient. Performed By: #### P INR, 79273-8, 718-7, PLTCT, BMP, 25293-1 #### [facility] ([id number]) [address], [address] [address] Glucose [Mass/Vol] 138 mg/dL High 65-99 [facility] Comment on above: Performed By: #### P INR, 75683-9, 718-7, PLTCT, BMP, 73114-3 #### [facility] ([id number]) [address] [address] Potassium [Moles/Vol] 4.8 mmol/L Normal 3.5-5.0 [facility] Comment on above: Result Comment: SPEC IMEN HEMOLYZED, RESULTS INCREASED MODERATELY HEMOLYZED Performed By: #### P INR, 18789-2, 718-7, PLTCT, BMP, 94378-5 #### [facility] ([id number]) [address], [address] [place] [address] Sodium [Moles/Vol] 140 mmol/L Normal 134-146 [facility] Comment on above: Performed By: #### P INR, 32598-4, 718-7, PLTCT, BMP, 82790-1 #### [facility] ([id number]) [address], [address] [place] [address] Urea nitrogen [Mass/Vol] 20 mg/dL Normal 5-27 [facility] Comment on above: Performed By: #### P INR, 48365-9, 718-7, PLTCT, BMP, 52686-3 #### [facility] ([id number]) [address], [address] [place] [address] Basic Metabolic Panelon - Anion gap [Moles/Vol] 15 mmol/L 5 - 15 mmol/L [facility] Calcium [Mass/Vol] 8.0 mg/dL Low 8.5 - 10. 5 mg/dL [facility] Chloride [Moles/Vol] 97 mmol/L Low 98 - 109 mmol/L [facility] CO2 [Moles/Vol] 28 mmol/L 22 - 32 mmol/L [facility] Creatinine [Mass/Vol] 0.88 mg/dL 0.40 - 1.00 mg/dL [facility] Comment on above: METHOD TRACEABLE TO IDOR STANDARD eGFR (CKD-EPI)non-race dependent 71 - PINF [facility] Comment on above: Reported eGFR is based on the CKD-EPI 2020 equation that does not use a race coefficient. Glucose [Mass/Vol] 138 mg/dL High 65 - 99 mg/dL [facility] Potassium [Moles/Vol] 4.8 mmol/L 3.5 - 5.0 mmol/L [facility] Comment on above: SPECIMEN HEMOLYZED, RESULTS INCREASED MODERATELY HEMOLYZED Sodium [Moles/Vol] 140 mmol/L 134 - 146 mmol/L [facility] Urea nitrogen [Mass/Vol] 20 mg/dL 5 - 27 mg/dL [facility] CBC AND AUTO DIFFon 10-15-19 ABSOLUTE BASOPHIL 0.0 X10E9/L Normal 0.0-0.2 [facility] Comment on above: Performed By: #### P INR, 81450-1, 718-7, PLTCT, BMP, 89210-7 #### [facility] ([id number]) [address], [address] [place] [address] ABSOLUTE NEUTROPHIL 4.6 X10E9/L Normal 1.5-6.6 [facility] Comment on above: Performed By: #### P INR, 14381-5, 718-7, PLTCT, BMP, 75185-5 #### [facility] ([id number]) [address], [address] [address] Basophils/100 WBC (Bld) 0.4 % Normal [facility] Comment on above: Performed By: #### P INR, 08820-5, 718-7, PLTCT, BMP, 96203-6 #### [facility] ([id number]) [address], [address] [place] [address] Eosinophils (Bld) [#/Vol] 0.0 10*3/uL Normal 0.0-0.4 [facility] Comment on above: Performed By: #### P INR, 38704-7, 718-7, PLTCT, BMP, 70224-1 #### [facility] ([id number]) [address], [address] [place] [address] Eosinophils/100 WBC (Bld) 0.3 % Normal [facility] Comment on above: Performed By: #### P INR, 92704-6, 718-7, PLTCT, BMP, 48720-6 #### [facility] ([id number]) [address], [address] [address] Erythrocyte distribution width (RBC) [Ratio] 12.7 % Normal 11.5-15.0 [facility] Comment on above: Performed By: #### P INR, 78120-0, 718-7, PLTCT, BMP, 46099-3 #### [facility] ([id number]) [address], [address] [place] [address] Hematocrit (Bld) [Volume fraction] 38.1 % Normal 35-47 [facility] Comment on above: Performed By: #### P INR, 50601-5, 718-7, PLTCT, BMP, 67266-7 #### [facility] ([id number]) [address], [facility] [address] [place] [address] Lymphocytes (Bld) [#/Vol] 2.2 10*3/uL Normal 1.0-3.5 [facility] Comment on above: Performed By: #### P INR, 02298-7, 718-7, PLTCT, BMP, 16467-9 #### [facility] ([id number]) [address] [address] [place] [address] Lymphocytes/100 WBC (Bld) 30.4 % Normal [facility] Comment on above: Performed By: #### P INR, 90227-9, 8-7, PLTCT, BMP, 92934-9 #### [facility] ([id number]) [address] [address] [place] [address] MCH (RBC) [Entitic mass] 34.3 pg High 27-34 [facility] Comment on above: Performed By: #### P INR, 02114-2, 718-7, PLTCT, BMP, 84376-2 #### [facility] ([id number]) [address] [address] [place] [address] MCHC (RBC) [Mass/Vol] 33.3 g/dL Normal 32-36 [facility] Comment on above: Performed By: #### P INR, 58916-0, 718-7, PLTCT, BMP, 16134-8 #### [facility] ([id number]) [address], [facility] [address] [place] [address] MCV (RBC) [Entitic vol] 103 fL High 80-100 [facility] Comment on above: Performed By: #### P INR, 77678-7, 718-7, PLTCT, BMP, 29985-7 #### [facility] ([id number]) [address], [address] [place] [address] Monocytes (Bld) [#/Vol] 0.4 10*3/uL Normal 0-0.9 [facility] Comment on above: Performed By: #### P INR, 94617-7, 718-7, PLTCT, BMP, 27042-9 #### [facility] ([id number]) [address], [facility] [address] [place] [address] Monocytes/100 WBC (Bld) 6.0 % Normal [facility] Comment on above: Performed By: #### P INR, 88019-9, 718-7, PLTCT, BMP, 65490-0 #### [facility] ([id number]) [address], [address] [place] [address] Neutrophils/100 WBC (Bld) 62.9 % Normal [facility] Comment on above: Performed By: #### P INR, 28663-7, 718-7, PLTCT, BMP, 13304-5 #### [facility] ([id number]) [address], [address] [place] [address] Platelet mean volume (Bld) [Entitic vol] 8.7 fL Normal 7-12 [facility] Comment on above: Performed By: #### P INR, 82901-9, 718-7, PLTCT, BMP, 51742-8 #### [facility] ([id number]) [address], [address] [place] [address] Platelets (Bld) [#/Vol] 229 10*3/uL Normal 150-450 [facility] Comment on above: Performed By: #### P INR, 97113-2, 718-7, PLTCT, BMP, 17184-4 #### [facility] ([id number]) [address], [address] [place] [address] RBC COUNT 3.69 X10E12/L Low 3.80-5.20 [facility] Comment on above: Performed By: #### P INR, 80222-6, 718-7, PLTCT, BMP, 74645-6 #### [facility] ([id number]) [address], [address] [place] [address] WBC (Bld) [#/Vol] 7.3 10*3/uL Normal 4.0-11.0 [facility] Comment on above: Performed By: #### P INR, 31043-7, 718-7, PLTCT, BMP, 27541-8 #### [facility] ([id number]) [address], [address] [place] [address] CBC auto differentialon 04-0 Basophils (Bld) [#/Vol] 0.0 10*3/uL [facility] Basophils/100 WBC (Bld) 0.4 % [facility] Eosinophils (Bld) [#/Vol] 0.0 10*3/uL [facility] Eosinophils/100 WBC (Bld) 0.3 % [facility] Erythrocyte distribution width (RBC) [Ratio] 12.7 % 11.5 - 15.0 % [facility] Hematocrit (Bld) [Volume fraction] 38.1 % 35 - 47 % [facility] Hemoglobin (Bld) [Mass/Vol] 12.7 g/dL 11.7 - 15.5 g/dL [facility] Interpretation and review of laboratory results Abnormal [facility] Lymphocytes (Bld) [#/Vol] 2.2 10*3/uL [facility] Lymphocytes/100 WBC (Bld) 30.4 % [facility] MCH (RBC) [Entitic mass] 34.3 pg High 27 - 34 pg [facility] MCHC (RBC) [Mass/Vol] 33.3 g/dL 32 - 36 g/dL [facility] MCV (RBC) [Entitic vol] 103 fL High 80 - 100 fL [facility] Monocytes (Bld) [#/Vol] 0.4 10*3/uL [facility] Monocytes/100 WBC (Bld) 6.0 % [facility] Neutrophils (Bld) [#/Vol] 4.6 10*3/uL [facility] Neutrophils/100 WBC (Bld) 62.9 % [facility] Platelet mean volume (Bld) [Entitic vol] 8.7 fL 7 - 12 fL [facility] Platelets (Bld) [#/Vol] 229 10*3/uL [facility] RBC (Bld) [#/Vol] 3.69 10*6/uL Low [facility] WBC corrected for nucl RBC Auto (Bld) [#/Vol] 7.3 [facility] CREATININEon 10-15-2023 Creatinine [Mass/Vol] 0.81 mg/dL Normal 0.40-1.00 [facility] Comment on above: Result Comment: METH OD TRACEABLE TO IDMS STANDARD Performed By: #### P INR, 21237-0, 718-7, PLTCT, BMP, 15653-4 #### [facility] ([id number]) [address] [facility] [address] [place] [address] GFR/1.73 sq M.predicted among non-blacks MDRD (S/P/Bld) [Vol rate/Area] 79 mL/min/{1.73_m2} Normal >59 [facility] Comment on above: Result Comment: Reported eGFR is based on the CKD-EPI 2020 equation that does not use a race coefficient. Performed By: #### P INR, 98873-2, 718-7, PLTCT, BMP, 28909-9 #### [facility] ([id number]) [address] [facility] [place] [address] Creatinine includes GFR, ser umon 10-15-2023 Creatinine [Mass/Vol] 0.81 mg/dL 0.40 - 1.00 mg/dL [facility] Comment on above: METHOD TRACEABLE TO IDOR STANDARD eGFR (CKD-EPI)non-race dependent 79 - PINF [facility] Comment on above: Reported eGFR is based on the CKD-EPI 2020 equation that does not use a race coefficient. HEMOGLOBINon 10-15-2023 Hemoglobin (Bld) [Mass/Vol] 12.7 g/dL Normal 11.7-15.5 [facility] Comment on above: Performed By: #### P INR, 60384-8, 718-7, PLTCT, BMP, 22861-6 #### [facility] ([id number]) [address] [facility] [place] [address] Hemoglobinon 10-15-2023 Hemoglobin (Bld) [Mass/Vol] 12.7 g/dL 11.7 - 15.5 g/dL [facility] Ionized magnesiumon 10-15-19 Magnesium Ionized ISE (Bld) [Moles/Vol] 0.53 mmol/L 0.45 - 0.74 mmol/L [facility] Comment on above: NEW REFERENCE RANGE MAGNESIUMon 10-15-2023 Magnesium [Mass/Vol] 1.8 mg/dL Normal 1.8-2.6 [facility] Comment on above: Result Comment: SPEC IMEN HEMOLYZED, RESULTS INCREASED MARKEDLY HEMOLYZED Performed By: #### P INR, 05536-2, 718-7, PLTCT, BMP, 48009-8 #### [facility] ([id number]) [address], [address] [place] [address] Magnesiumon 10-15-2023 Magnesium [Mass/Vol] 1.8 mg/dL 1.8 - 2.6 mg/dL [facility] Comment on above: SPECIMEN HEMOLYZED, RESULTS INCREASED MARKEDLY HEMOLYZED Magnesium Ionized ISE (Bld) [Moles/Vol]on 10-15-2023 Magnesium [Moles/Vol] 0.53 mmol/L Normal 0.45-0.74 [facility] Comment on above: Result Comment: NEW REFERENCE RANGE Performed By: #### P INR, 54501-4, 718-7, PLTCT, BMP, 26757-7 #### [facility] ([id number]) [address], [address] [place] [address] [facility] No Panel Informationon 10-14 Interpretation and review of laboratory results Abnormal [facility] PHOSPHORUSon 10-15-2023 Phosphate [Mass/Vol] 5.7 mg/dL High 2.4-4.9 [facility] Comment on above: Result Comment: SPEC IMEN HEMOLYZED, RESULTS INCREASED MODERATELY HEMOLYZED Performed By: #### P INR, 43223-5, 718-7, PLTCT, BMP, 97495-2 #### [facility] ([id number]) [address], [address] [place] [address] PLATELET COUNT AND MPVon Platelet mean volume (Bld) [Entitic vol] 8.3 fL Normal 7-12 [facility] Comment on above: Performed By: #### P INR, 03429-0, 718-7, PLTCT, BMP, 29004-6 #### [facility] ([id number]) [address], [address] [place] [address] Platelets (Bld) [#/Vol] 219 10*3/uL Normal 150-450 [facility] Comment on above: Performed By: #### P INR, 33036-1, 718-7, PLTCT, BMP, 87849-2 #### [facility] ([id number]) [address], [address] [place] [address] Phosphoruson 10-15-2023 Phosphate [Mass/Vol] 5.7 mg/dL High 2.4 - 4.9 mg/dL [facility] Comment on above: SPECIMEN HEMOLYZED, RESULTS INCREASED MODERATELY HEMOLYZED Platelet counton 10-15-2023 Platelet mean volume (Bld) [Entitic vol] 8.3 fL 7 - 12 fL [facility] Platelets (Bld) [#/Vol] 219 10*3/uL [facility] Single viewon 10-14 Kay Dunn DO - 10/15/2023 Procedure: Chest x-ray performed Number of views:AP view History:Hypoxia Comparison:10/12/2023 Findings: The heart and mediastinal silhouette are stable. There is pulmonary vascular congestion. There are no focal consolidations. There is a small left pleural effusion. There is no pneumothorax Impression: Pulmonary vascular congestion. Finalized by Kay Dunn DO on 10/15/2023 10:48 AM [facility] [employer] Radiology Study observation (narrative) [employer] [facility] [employer] XR Chest Single viewOrdered By: Kay Dunn on 10-15-2023 [facility] Work Phone: Anti XA unfractionated hepar inon 10-14-2023 Heparin unfractionated Chromogenic method Qn (PPP) Low [facility] Comment on above: Optimal time for marky ting is 6 hrs post dosage This test is specific for monitoring patients on UFH, and is not recommended for use with other Anti-Xa medications. Heparin unfractionated Chromogenic method Qn (PPP) 0.68 [facility] Comment on above: Optimal time for marky ting is 6 hrs post dosage This test is specific for monitoring patients on UFH, and is not recommended for use with other Anti-Xa medications. BASIC METABOLIC PANLon 10-13 Anion gap [Moles/Vol] 11 mmol/L Normal 5-15 [facility] Comment on above: Performed By: #### P INR, 88505-4, 718-7, PLTCT, BMP, 66901-3 #### [facility] ([id number]) [address] [facility] [place] [address] Calcium [Mass/Vol] 7.4 mg/dL Low 8.5-10.5 [facility] Comment on above: Performed By: #### P INR, 34333-0, 718-7, PLTCT, BMP, 41394-6 #### [facility] ([id number]) [address], [address] [place] [address] Chloride [Moles/Vol] 100 mmol/L Normal 98-109 [facility] Comment on above: Performed By: #### P INR, 57118-8, 718-7, PLTCT, BMP, 32219-2 #### [facility] ([id number]) [address], [address] [place] [address] CO2 [Moles/Vol] 30 mmol/L Normal 22-32 [facility] Comment on above: Performed By: #### P INR, 82817-4, 718-7, PLTCT, BMP, 12252-9 #### [facility] ([id number]) [address], [address] [place] [address] Creatinine [Mass/Vol] 1.05 mg/dL High 0.40-1.00 [facility] Comment on above: Result Comment: METH OD TRACEABLE TO IDMS STANDARD Performed By: #### P INR, 20136-5, 718-7, PLTCT, BMP, 08850-9 #### [facility] ([id number]) [address], [address] [place] [address] GFR/1.73 sq M.predicted among non-blacks MDRD (S/P/Bld) [Vol rate/Area] 58 mL/min/{1.73_m2} Low >59 [facility] Comment on above: Result Comment: Reported eGFR is based on the CKD-EPI 2020 equation that does not use a race coefficient. Performed By: #### P INR, 96722-7, 718-7, PLTCT, BMP, 64145-6 #### [facility] ([id number]) [address], [address] [place] [address] Glucose [Mass/Vol] 122 mg/dL High 65-99 [facility] Comment on above: Performed By: #### P INR, 04704-5, 718-7, PLTCT, BMP, 99997-5 #### [facility] ([id number]) [address], [address] [place] [address] Potassium [Moles/Vol] 4.4 mmol/L Normal 3.5-5.0 [facility] Comment on above: Performed By: #### P INR, 88345-1, 718-7, PLTCT, BMP, 90098-9 #### [facility] ([id number]) [address], [address] [place] [address] Sodium [Moles/Vol] 141 mmol/L Normal 134-146 [facility] Comment on above: Performed By: #### P INR, 83076-8, 718-7, PLTCT, BMP, 20288-1 #### [facility] ([id number]) [address], [facility] [address] [place] [address] Urea nitrogen [Mass/Vol] 22 mg/dL Normal 5-27 [facility] Comment on above: Performed By: #### P INR, 06065-3, 718-7, PLTCT, BMP, 76038-4 #### [facility] ([id number]) [address], [address] [address] Basic Metabolic Panelon 04-0 Anion gap [Moles/Vol] 11 mmol/L 5 - 15 mmol/L [facility] Calcium [Mass/Vol] 7.4 mg/dL Low 8.5 - 10. 5 mg/dL [facility] Chloride [Moles/Vol] 100 mmol/L 98 - 109 mmol/L [facility] CO2 [Moles/Vol] 30 mmol/L 22 - 32 mmol/L [facility] Creatinine [Mass/Vol] 1.05 mg/dL High 0.40 - 1.00 mg/dL [facility] Comment on above: METHOD TRACEABLE TO IDMS STANDARD eGFR (CKD-EPI)non-race dependent 58 Low - PINF [facility] Comment on above: Reported eGFR is based on the CKD-EPI 2020 equation that does not use a race coefficient. Glucose [Mass/Vol] 122 mg/dL High 65 - 99 mg/dL [facility] Interpretation and review of laboratory results Abnormal [facility] Potassium [Moles/Vol] 4.4 mmol/L 3.5 - 5.0 mmol/L [facility] Sodium [Moles/Vol] 141 mmol/L 134 - 146 mmol/L [facility] Urea nitrogen [Mass/Vol] 22 mg/dL 5 - 27 mg/dL [facility] CBC without diffon Erythrocyte distribution width (RBC) [Ratio] 13.0 % 11.5 - 15.0 % [facility] Hematocrit (Bld) [Volume fraction] 37.7 % 35 - 47 % [facility] Hemoglobin (Bld) [Mass/Vol] 12.5 g/dL 11.7 - 15.5 g/dL [facility] Interpretation and review of laboratory results Abnormal [facility] MCH (RBC) [Entitic mass] 34.4 pg High 27 - 34 pg [facility] MCHC (RBC) [Mass/Vol] 33.1 g/dL 32 - 36 g/dL [facility] MCV (RBC) [Entitic vol] 104 fL High 80 - 100 fL [facility] Platelet mean volume (Bld) [Entitic vol] 8.8 fL 7 - 12 fL [facility] Platelets (Bld) [#/Vol] 207 10*3/uL [facility] RBC (Bld) [#/Vol] 3.64 10*6/uL Low [facility] WBC corrected for nucl RBC Auto (Bld) [#/Vol] 8.4 [facility] COMPLETE BLOOD COUNTon 10-13 Erythrocyte distribution width (RBC) [Ratio] 13.0 % Normal 11.5-15.0 [facility] Comment on above: Performed By: #### P INR, 70431-6, 718-7, PLTCT, BMP, 12780-9 #### [facility] ([id number]) [address] [facility], [address] [place] [address] Hematocrit (Bld) [Volume fraction] 37.7 % Normal 35-47 [facility] Comment on above: Performed By: #### P INR, 13187-8, 718-7, PLTCT, BMP, 41551-4 #### [facility] ([id number]) [address], [address] [place] [address] Hemoglobin (Bld) [Mass/Vol] 12.5 g/dL Normal 11.7-15.5 [facility] Comment on above: Performed By: #### P INR, 99613-4, 718-7, PLTCT, BMP, 06476-4 #### [facility] ([id number]) [address], [facility] [address] [place] [address] MCH (RBC) [Entitic mass] 34.4 pg High 27-34 [facility] Comment on above: Performed By: #### P INR, 08835-5, 718-7, PLTCT, BMP, 50588-9 #### [facility] ([id number]) [address], [address] [place] [address] MCHC (RBC) [Mass/Vol] 33.1 g/dL Normal 32-36 [facility] Comment on above: Performed By: #### P INR, 89911-8, 718-7, PLTCT, BMP, 69908-7 #### [facility] ([id number]) [address], [address] [place] [address] MCV (RBC) [Entitic vol] 104 fL High 80-100 [facility] Comment on above: Performed By: #### P INR, 49095-3, 718-7, PLTCT, BMP, 87885-0 #### [facility] ([id number]) [address], [address] [place] [address] Platelet mean volume (Bld) [Entitic vol] 8.8 fL Normal 7-12 [facility] Comment on above: Performed By: #### P INR, 19164-1, 718-7, PLTCT, BMP, 90423-6 #### [facility] ([id number]) [address], [address] [place] [address] Platelets (Bld) [#/Vol] 207 10*3/uL Normal 150-450 [facility] Comment on above: Performed By: #### P INR, 18332-3, 718-7, PLTCT, BMP, 06778-6 #### [facility] ([id number]) [address], [address] [place] [address] RBC COUNT 3.64 X10E12/L Low 3.80-5.20 [facility] Comment on above: Performed By: #### P INR, 22389-3, 718-7, PLTCT, BMP, 83419-3 #### [facility] ([id number]) [address], [address] [place] [address] WBC (Bld) [#/Vol] 8.4 10*3/uL Normal 4.0-11.0 [facility] Comment on above: Performed By: #### P INR, 67939-8, 718-7, PLTCT, BMP, 32733-2 #### [facility] ([id number]) [address], [address] [place] [address] Calcium.ionized (Bld) [Mass/ Vol]on 10-14-2023 IONIZED CALCIUM 4.3 mg/dL Low 4.5-5.3 [facility] Comment on above: Performed By: #### P INR, 14668-6, 718-7, PLTCT, BMP, 49768-0 #### [facility] ([id number]) [address], [address] [place] [address] Interpretation and review of laboratory results Abnormal [facility] IONIZED CALCIUM 3.9 mg/dL Low 4.5-5.3 [facility] Comment on above: Performed By: #### P INR, 98218-7, 718-7, PLTCT, BMP, 60306-0 #### [facility] ([id number]) [address], [address] [place] [address] Interpretation and review of laboratory results Abnormal [facility] IONIZED CALCIUM 4.1 mg/dL Low 4.5-5.3 [facility] Comment on above: Performed By: #### P INR, 54409-5, 718-7, PLTCT, BMP, 89630-8 #### [facility] ([id number]) [address], [address] [place] [address] Interpretation and review of laboratory results Abnormal [facility] Coronary angiography perform edon 10-14-2023 Addendum [...] the distal LAD after that reconstitutes via [id number]-[id number] collaterals. The vessel is extremely small and not amenable to PCI. Intervention No interventions have been documented. Right Atrium Normal left and right heart filling pressures. Normal pulmonary arterial pressure mildly elevated left ventricular end-diastolic pressure normal cardiac output and cardiac index. [facility] Radiology Study observation (narrative) [facility] ECG 12 leadon 10-14-2023 TRACEMASTERVUE [facility] HGB A1C (GLYCO-HGB)on 2023 Glucose [Mass/Vol] 91 mg/dL Normal [facility] Comment on above: Performed By: #### P INR, 33709-9, 718-7, PLTCT, BMP, 04353-6 #### [facility] ([id number]) [address] [facility], [address] [place] [address] HbA1c (Bld) [Mass fraction] 4.8 % Normal 4.4-5.6 [facility] Comment on above: Result Comment: NOTE ADA Guidelines Result HgbA1c Normal : less than 5.7 % Prediabetes : 5.7 % to 6.4 % Diabetes : > 6.4 % Use with caution in patients with abnormal hemoglobin variants as the half-life of red blood cells and in vivo glycation rates are affected. Performed By: #### P INR, 60825-8, 718-7, PLTCT, BMP, 05964-7 #### [facility] ([id number]) [address], [address] [place] [address] Hemoglobin A1con 10-14-2023 Average glucose Estimated from glycated hemoglobin (Bld) [Mass/Vol] 91 mg/dL [facility] HbA1c (Bld) [Mass fraction] 4.8 % 4.4 - 5.6 % [facility] Comment on above: NOTE ADA Guidelines Result HgbA1c Normal : less than 5.7 % Prediabetes : 5.7 % to 6.4 % Diabetes : > 6.4 % Use with caution in patients with abnormal hemoglobin variants as the half-life of red blood cells and in vivo glycation rates are affected. [facility] Heparin unfractionated Chrom ogenic method Qn (PPP)on 10-14-2023 ANTI XA UFH <0.04 Low 0.30-0.70 [facility] Comment on above: Result Comment: Opti mal time for testing is 6 hrs post dosage This test is specific for monitoring patients on UFH, and is not recommended for use with other Anti-Xa medications. Performed By: #### P INR, 43668-2, 718-7, PLTCT, BMP, 00147-7 #### [facility] ([id number]) [address], [address] [place] [address] Interpretation and review of laboratory results Abnormal [facility] ANTI XA UFH 0.68 IU/mL Normal 0.30-0.70 [facility] Comment on above: Result Comment: Opti mal time for testing is 6 hrs post dosage This test is specific for monitoring patients on UFH, and is not recommended for use with other Anti-Xa medications. Performed By: #### P INR, 37317-1, 718-7, PLTCT, BMP, 49778-7 #### [facility] ([id number]) [address], [address] [place] [address] [facility] Ionized calciumon 10-14-2023 Calcium.ionized (Bld) [Mass/Vol] 4.3 mg/dL Low 4.5 - 5.3 mg/dL [facility] Calcium.ionized (Bld) [Mass/Vol] 3.9 mg/dL Low 4.5 - 5.3 mg/dL [facility] Calcium.ionized (Bld) [Mass/Vol] 4.1 mg/dL Low 4.5 - 5.3 mg/dL [facility] Ionized magnesiumon 10-14-19 Magnesium Ionized ISE (Bld) [Moles/Vol] 0.54 mmol/L 0.45 - 0.74 mmol/L [facility] Comment on above: NEW REFERENCE RANGE Lipid 1996 panelon 4 Cholesterol [Mass/Vol] 135 mg/dL Low 150-200 [facility] Comment on above: Performed By: #### P INR, 95413-7, 718-7, PLTCT, BMP, 40159-3 #### [facility] ([id number]) [address] [facility], [address] [place] [address] Cholesterol in HDL [Mass/Vol] 59 mg/dL Normal >39 [facility] Comment on above: Result Comment: HDL <40 mg/dL - High Risk HDL > or = 40mg/dL- Desirable HDL >60 mg/dL - Negative Risk Performed By: #### P INR, 47728-0, 718-7, PLTCT, BMP, 96303-5 #### [facility] ([id number]) [address] [place] [address], [address] [place] [address] Cholesterol in LDL [Mass/Vol] 46 mg/dL Normal <130 [facility] Comment on above: Result Comment: LDL <100 mg/dL - Desirable LDL >160 mg/dL - High Risk Performed By: #### P INR, 20749-2, 718-7, PLTCT, BMP, 75720-6 #### [facility] ([id number]) [facility], [address] [place] [address] Cholesterol in VLDL [Mass/Vol] 30 mg/dL Normal 0-30 [facility] Comment on above: Performed By: #### P INR, 55708-6, 718-7, PLTCT, BMP, 76242-0 #### [facility] ([id number]) [address], [address] [place] [address] CHOLESTEROL:HDL 2.3 Normal 1.0-5.0 [facility] Comment on above: Performed By: #### P INR, 48931-4, 718-7, PLTCT, BMP, 87807-6 #### [facility] ([id number]) [address], [address] [place] [address] Triglyceride [Mass/Vol] 150 mg/dL Normal 27-150 [facility] Comment on above: Performed By: #### P INR, 31581-0, 718-7, PLTCT, BMP, 51826-4 #### [facility] ([id number]) [address], [address] [address] Cholesterol [Mass/Vol] 135 mg/dL Low 150 - 200 mg/dL [facility] Cholesterol in HDL [Mass/Vol] 59 mg/dL 39 - PINF mg/dL [facility] Comment on above: HDL <40 mg/dL - High Risk HDL > or = 40mg/dL- Desirable HDL >60 mg/dL - Negative Risk Cholesterol in LDL [Mass/Vol] 46 mg/dL NINF - 130 mg/dL [facility] Comment on above: LDL <100 mg/dL - Desirable LDL >160 mg/dL - High Risk Cholesterol in VLDL [Mass/Vol] 30 mg/dL 0 - 30 mg/dL [facility] Cholesterol.total/ Cholesterol in HDL [Mass ratio] 2.3 {ratio} 1.0 - 5.0 [facility] Interpretation and review of laboratory results Abnormal [facility] Triglyceride [Mass/Vol] 150 mg/dL 27 - 150 mg/dL [facility] MAGNESIUMon 10-14-2023 Magnesium [Mass/Vol] 1.8 mg/dL Normal 1.8-2.6 [facility] Comment on above: Performed By: #### P INR, 83664-2, 718-7, PLTCT, BMP, 46509-9 #### [facility] ([id number]) [address], [address] [place] [address] Magnesiumon 10-14-2023 Magnesium [Mass/Vol] 1.8 mg/dL 1.8 - 2.6 mg/dL [facility] Magnesium Ionized ISE (Bld) [Moles/Vol]on 10-14-2023 Magnesium [Moles/Vol] 0.54 mmol/L Normal 0.45-0.74 [facility] Comment on above: Result Comment: NEW REFERENCE RANGE Performed By: #### P INR, 81007-8, 718-7, PLTCT, BMP, 91374-9 #### [facility] ([id number]) [address], [address] [place] [address] [facility] No Panel Informationon 10-13 [facility] APTTon 10-13-2023 aPTT Coag (PPP) [Time] 48 s [facility] Anti XA unfractionated hepar inon 10-13-2023 Heparin unfractionated Chromogenic method Qn (PPP) 0.74 [facility] Comment on above: Optimal time for marky ting is 6 hrs post dosage This test is specific for monitoring patients on UFH, and is not recommended for use with other Anti-Xa medications. Heparin unfractionated Chromogenic method Qn (PPP) 0.69 [facility] Comment on above: Optimal time for marky ting is 6 hrs post dosage This test is specific for monitoring patients on UFH, and is not recommended for use with other Anti-Xa medications. Heparin unfractionated Chromogenic method Qn (PPP) 0.72 [facility] Comment on above: Optimal time for marky ting is 6 hrs post dosage This test is specific for monitoring patients on UFH, and is not recommended for use with other Anti-Xa medications. BASIC METABOLIC PANLon 10-12 Anion gap [Moles/Vol] 13 mmol/L Normal 5-15 [facility] Comment on above: Performed By: #### P INR, 12385-3, 718-7, PLTCT, BMP, 65974-8 #### [facility] ([id number]) [address], [address] [place] [address] Calcium [Mass/Vol] 6.3 mg/dL Critically low 8.5-10.5 [facility] Comment on above: Performed By: #### P INR, 96447-0, 718-7, PLTCT, BMP, 19660-3 #### [facility] ([id number]) [address], [address] [place] [address] Chloride [Moles/Vol] 100 mmol/L Normal 98-109 [facility] Comment on above: Performed By: #### P INR, 10236-4, 718-7, PLTCT, BMP, 46099-5 #### [facility] ([id number]) [address] [address] [place] [address] CO2 [Moles/Vol] 30 mmol/L Normal 22-32 [facility] Comment on above: Performed By: #### P INR, 33296-3, 718-7, PLTCT, BMP, 51535-3 #### [facility] ([id number]) [address], [address] [place] [address] Creatinine [Mass/Vol] 0.79 mg/dL Normal 0.40-1.00 [facility] Comment on above: Result Comment: METH OD TRACEABLE TO IDMS STANDARD Performed By: #### P INR, 20155-8, 718-7, PLTCT, BMP, 79189-3 #### [facility] ([id number]) [address], [address] [place] [address] GFR/1.73 sq M.predicted among non-blacks MDRD (S/P/Bld) [Vol rate/Area] 81 mL/min/{1.73_m2} Normal >59 [facility] Comment on above: Result Comment: Reported eGFR is based on the CKD-EPI 2020 equation that does not use a race coefficient. Performed By: #### P INR, 59072-4, 718-7, PLTCT, BMP, 01252-6 #### [facility] ([id number]) [address] [address] [place] [address] Glucose [Mass/Vol] 157 mg/dL High 65-99 [facility] Comment on above: Performed By: #### P INR, 67027-4, 718-7, PLTCT, BMP, 00818-7 #### [facility] ([id number]) [address], [facility] [address] [place] [address] Potassium [Moles/Vol] 3.4 mmol/L Low 3.5-5.0 [facility] Comment on above: Performed By: #### P INR, 68418-6, 718-7, PLTCT, BMP, 86024-7 #### [facility] ([id number]) [address] [address] [place] [address] Sodium [Moles/Vol] 143 mmol/L Normal 134-146 [facility] Comment on above: Performed By: #### P INR, 83987-3, 718-7, PLTCT, BMP, 41711-0 #### [facility] ([id number]) [address] [address] [place] [address] Urea nitrogen [Mass/Vol] 16 mg/dL Normal 5-27 [facility] Comment on above: Performed By: #### P INR, 12496-2, 718-7, PLTCT, BMP, 73660-3 #### [facility] ([id number]) [address], [facility] [address] [place] [address] Anion gap [Moles/Vol] 15 mmol/L Normal 5-15 [facility] Comment on above: Performed By: #### P INR, 01538-4, 718-7, PLTCT, BMP, 40283-7 #### [facility] ([id number]) [address], [address] [place] [address] Calcium [Mass/Vol] 6.5 mg/dL Critically low 8.5-10.5 [facility] Comment on above: Performed By: #### P INR, 20951-7, 718-7, PLTCT, BMP, 75087-2 #### [facility] ([id number]) [address], [address] [place] [address] Chloride [Moles/Vol] 100 mmol/L Normal 98-109 [facility] Comment on above: Performed By: #### P INR, 72671-1, 718-7, PLTCT, BMP, 39753-6 #### [facility] ([id number]) [address], [address] [place] [address] CO2 [Moles/Vol] 30 mmol/L Normal 22-32 [facility] Comment on above: Performed By: #### P INR, 31289-8, 718-7, PLTCT, BMP, 29849-5 #### [facility] ([id number]) [address], [address] [place] [address] Creatinine [Mass/Vol] 0.88 mg/dL Normal 0.40-1.00 [facility] Comment on above: Result Comment: METH OD TRACEABLE TO IDMS STANDARD Performed By: #### P INR, 96549-8, 718-7, PLTCT, BMP, 93130-2 #### [facility] ([id number]) [address], [address] [place] [address] GFR/1.73 sq M.predicted among non-blacks MDRD (S/P/Bld) [Vol rate/Area] 71 mL/min/{1.73_m2} Normal >59 [facility] Comment on above: Result Comment: Reported eGFR is based on the CKD-EPI 2020 equation that does not use a race coefficient. Performed By: #### P INR, 31890-6, 718-7, PLTCT, BMP, 06800-6 #### [facility] ([id number]) [address], [address] [place] [address] Glucose [Mass/Vol] 154 mg/dL High 65-99 [facility] Comment on above: Performed By: #### P INR, 25203-0, 718-7, PLTCT, BMP, 12260-2 #### [facility] ([id number]) [address], [address] [place] [address] Potassium [Moles/Vol] 3.4 mmol/L Low 3.5-5.0 [facility] Comment on above: Performed By: #### P INR, 11099-2, 718-7, PLTCT, BMP, 42329-0 #### [facility] ([id number]) [address], [address] [place] [address] Sodium [Moles/Vol] 145 mmol/L Normal 134-146 [facility] Comment on above: Performed By: #### P INR, 66410-0, 718-7, PLTCT, BMP, 22856-9 #### [facility] ([id number]) [address], [address] [place] [address] Urea nitrogen [Mass/Vol] 16 mg/dL Normal 5-27 [facility] Comment on above: Performed By: #### P INR, 11627-8, 718-7, PLTCT, BMP, 84932-1 #### [facility] ([id number]) [address], [address] [place] [address] Basic Metabolic Panelon 04-0 Anion gap [Moles/Vol] 13 mmol/L 5 - 15 mmol/L [facility] Calcium [Mass/Vol] 6.3 mg/dL Critically low 8.5 - 1 0.5 mg/dL [facility] Chloride [Moles/Vol] 100 mmol/L 98 - 109 mmol/L [facility] CO2 [Moles/Vol] 30 mmol/L 22 - 32 mmol/L [facility] Creatinine [Mass/Vol] 0.79 mg/dL 0.40 - 1.00 mg/dL [facility] Comment on above: METHOD TRACEABLE TO [facility] STANDARD eGFR (CKD-EPI)non-race dependent 81 - PINF [facility] Comment on above: Reported eGFR is based on the CKD-EPI 2021 equation that does not use a race coefficient. Glucose [Mass/Vol] 157 mg/dL High 65 - 99 mg/dL [facility] Interpretation and review of laboratory results Abnormal [facility] Potassium [Moles/Vol] 3.4 mmol/L Low 3.5 - 5.0 mmol/L [facility] Sodium [Moles/Vol] 143 mmol/L 134 - 146 mmol/L [facility] Urea nitrogen [Mass/Vol] 16 mg/dL 5 - 27 mg/dL [facility] Anion gap [Moles/Vol] 15 mmol/L 5 - 15 mmol/L [facility] Calcium [Mass/Vol] 6.5 mg/dL Critically low 8.5 - 1 0.5 mg/dL [facility] Chloride [Moles/Vol] 100 mmol/L 98 - 109 mmol/L [facility] CO2 [Moles/Vol] 30 mmol/L 22 - 32 mmol/L [facility] Creatinine [Mass/Vol] 0.88 mg/dL 0.40 - 1.00 mg/dL [facility] Comment on above: METHOD TRACEABLE TO [facility] STANDARD eGFR (CKD-EPI)non-race dependent 71 - PINF [facility] Comment on above: Reported eGFR is based on the CKD-EPI 2021 equation that does not use a race coefficient. Glucose [Mass/Vol] 154 mg/dL High 65 - 99 mg/dL [facility] Potassium [Moles/Vol] 3.4 mmol/L Low 3.5 - 5.0 mmol/L [facility] Sodium [Moles/Vol] 145 mmol/L 134 - 146 mmol/L [facility] Urea nitrogen [Mass/Vol] 16 mg/dL 5 - 27 mg/dL [facility] CBC AND AUTO DIFFon 10-13-19 24 ABSOLUTE BASOPHIL 0.0 X10E9/L Normal 0.0-0.2 [facility] Comment on above: Performed By: #### C BCA, , THYR, 30646-2 #### [facility] ([id number]) [address], [address] [place] [address] ABSOLUTE NEUTROPHIL 4.2 X10E9/L Normal 1.5-6.6 [facility] Comment on above: Performed By: #### Berhane ÁLVAREZ, , THYR, 50034-1 #### [facility] ([id number]) [address], [address] [place] [address] Basophils/100 WBC (Bld) 0.1 % Normal [facility] Comment on above: Performed By: #### Berhane ÁLVAREZ, , THYR, 82260-0 #### [facility] ([id number]) [address], [address] [place] [address] Eosinophils (Bld) [#/Vol] 0.0 10*3/uL Normal 0.0-0.4 [facility] Comment on above: Performed By: #### Berhane BCA, , THYR, 66605-8 #### [facility] ([id number]) [address], [address] [place] [address] Eosinophils/100 WBC (Bld) 0.0 % Normal [facility] Comment on above: Performed By: #### Berhane BCA, , THYR, 04290-4 #### [facility] ([id number]) [address], [address] [place] [address] Erythrocyte distribution width (RBC) [Ratio] 12.5 % Normal 11.5-15.0 [facility] Comment on above: Performed By: #### C BCA, , THYR, 71310-5 #### [facility] ([id number]) [address], [address] [place] [address] Hematocrit (Bld) [Volume fraction] 39.2 % Normal 35-47 [facility] Comment on above: Performed By: #### Berhane BCA, , THYR, 51645-5 #### [facility] ([id number]) [address], [facility] [address] [place] [address] Hemoglobin (Bld) [Mass/Vol] 13.2 g/dL Normal 11.7-15.5 [facility] Comment on above: Performed By: #### Berhane BCA, , THYR, 93221-7 #### [facility] ([id number]) [address] [address] [place] [address] Lymphocytes (Bld) [#/Vol] 0.9 10*3/uL Low 1.0-3.5 [facility] Comment on above: Performed By: #### Berhane BCA, , THYR, 82376-9 #### [facility] ([id number]) [address] [address] [place] [address] Lymphocytes/100 WBC (Bld) 17.5 % Normal [facility] Comment on above: Performed By: #### C BCA, , THYR, 04529-8 #### [facility] ([id number]) [address], [address] [place] [address] MCH (RBC) [Entitic mass] 34.6 pg High 27-34 [facility] Comment on above: Performed By: #### C BCA, , THYR, 07645-4 #### [facility] ([id number]) [address], [address] [place] [address] MCHC (RBC) [Mass/Vol] 33.6 g/dL Normal 32-36 [facility] Comment on above: Performed By: #### Berhane ÁLVAREZ, , THYR, 64484-7 #### [facility] ([id number]) [address] [address] [place] [address] MCV (RBC) [Entitic vol] 103 fL High 80-100 [facility] Comment on above: Performed By: #### Berhane ÁLVAREZ, , THYR, 58324-3 #### [facility] ([id number]) [address], [facility] [address] [place] [address] Monocytes (Bld) [#/Vol] 0.1 10*3/uL Normal 0-0.9 [facility] Comment on above: Performed By: #### Berhane ÁLVAREZ, , THYR, 58358-7 #### [facility] ([id number]) [address], [facility] [address] [place] [address] Monocytes/100 WBC (Bld) 2.5 % Normal [facility] Comment on above: Performed By: #### Berhane BCA, , THYR, 42468-1 #### [facility] ([id number]) [address] [address] [place] [address] Neutrophils/100 WBC (Bld) 79.9 % Normal [facility] Comment on above: Performed By: #### Berhane BCA, , THYR, 65250-5 #### [facility] ([id number]) [address], [facility] [address] [place] [address] Platelet mean volume (Bld) [Entitic vol] 8.6 fL Normal 7-12 [facility] Comment on above: Performed By: #### Berhane BCA, , THYR, 80424-2 #### [facility] ([id number]) [address], [address] [place] [address] Platelets (Bld) [#/Vol] 176 10*3/uL Normal 150-450 [facility] Comment on above: Performed By: #### Berhane BCA, 16859-8, THYR, 76592-3 #### [facility] ([id number]) [address], [address] [place] [address] RBC COUNT 3.80 X10E12/L Normal 3.80-5.20 [facility] Comment on above: Performed By: #### Berhane ÁLVAREZ, 00433-8, THYR, 11419-9 #### [facility] ([id number]) [address], [facility] [address] [place] [address] WBC (Bld) [#/Vol] 5.3 10*3/uL Normal 4.0-11.0 [facility] Comment on above: Performed By: #### Berhane ÁLVAREZ, , THYR, 24237-5 #### [facility] ([id number]) [address], [address] [place] [address] CBC auto differentialon 04-0 Basophils (Bld) [#/Vol] 0.0 10*3/uL [facility] Basophils/100 WBC (Bld) 0.1 % [facility] Eosinophils (Bld) [#/Vol] 0.0 10*3/uL [facility] Eosinophils/100 WBC (Bld) 0.0 % [facility] Erythrocyte distribution width (RBC) [Ratio] 12.5 % 11.5 - 15.0 % [facility] Hematocrit (Bld) [Volume fraction] 39.2 % 35 - 47 % [facility] Hemoglobin (Bld) [Mass/Vol] 13.2 g/dL 11.7 - 15.5 g/dL [facility] Interpretation and review of laboratory results Abnormal [facility] Lymphocytes (Bld) [#/Vol] 0.9 10*3/uL Low [facility] Lymphocytes/100 WBC (Bld) 17.5 % [facility] MCH (RBC) [Entitic mass] 34.6 pg High 27 - 34 pg [facility] MCHC (RBC) [Mass/Vol] 33.6 g/dL 32 - 36 g/dL [facility] MCV (RBC) [Entitic vol] 103 fL High 80 - 100 fL [facility] Monocytes (Bld) [#/Vol] 0.1 10*3/uL [facility] Monocytes/100 WBC (Bld) 2.5 % [facility] Neutrophils (Bld) [#/Vol] 4.2 10*3/uL [facility] Neutrophils/100 WBC (Bld) 79.9 % [facility] Platelet mean volume (Bld) [Entitic vol] 8.6 fL 7 - 12 fL [facility] Platelets (Bld) [#/Vol] 176 10*3/uL [facility] RBC (Bld) [#/Vol] 3.80 10*6/uL [facility] WBC corrected for nucl RBC Auto (Bld) [#/Vol] 5.3 [facility] Calcium.ionized (Bld) [Mass/ Vol]on 10-13-2023 IONIZED CALCIUM 3.9 mg/dL Low 4.5-5.3 [facility] Comment on above: Performed By: #### P INR, 36989-5, 718-7, PLTCT, BMP, 07556-1 #### [facility] ([id number]) [address] [facility], [address] [place] [address] Interpretation and review of laboratory results Abnormal [facility] IONIZED CALCIUM 3.8 mg/dL Low 4.5-5.3 [facility] Comment on above: Performed By: #### 3 8230-9, 75665-7 #### [facility] ([id number]) [address] [facility] [place] [address] Cardiac echo study Procedure on 10-13-2023 Aortic root 2.90 cm [facility] AV [facility] gradient 2.00 [facility] AV peak gradient 3.68 mmHg [facility] AV peak jeannie 95.90 cm/s [facility] AV valve area 2.03 cm2 [facility] AV Velocity Ratio 0.65 [facility] AV VTI 18.60 cm [facility] E wave deceleration time 124.00 msec [facility] E/A ratio 1.81 [facility] FS 11 % 28 - 44 % [facility] Interventricular Septum Diastolic Thickness by 2D 9 cm [facility] IVS 0.90 cm 0.6 - 1.1 cm [facility] LA size 3.10 cm [facility] LA volume 35.80 cm3 [facility] LA Volume Index 20.8 mL/m2 [facility] Left Ventricle Mass [id number] g [facility] LV ESV A2C 39.00 mL [facility] LV ESV A4C 31.30 mL [facility] LV RWT 2D 44.44 [facility] LVIDd 4.50 cm [facility] LVIDs 4.00 cm [facility] LVOT diameter 2.00 cm [facility] LVOT peak jeannie 0.58 m/s [facility] LVOT peak VTI 12.00 cm [facility] LVOT stroke volume 37.70 ml [facility] MV Peak A Jeannie 49.50 cm/s [facility] MV Peak E Jeannie 89.70 cm/s [facility] MV pressure 1/2 time 36.00 ms [facility] MV TDI E' (medial) 10.60 cm/s [facility] MV valve area p 1/2 method 6.11 cm2 [facility] PW 1.00 cm 0.6 - 1.1 cm [facility] RA area 11.2 cm2 [facility] RV diastolic dimension (basal) 30.0 mm [facility] TAPSE 1.04 cm [facility] TDI 11.90 cm/s [facility] TR peak gradient 11.42 mmHg [facility] TR Peak Jeannie 1.7 m/s [facility] Valve area - Index 1.2 [facility] Left Ventricle: Syst olic function is [...] anteroseptal, apical septal and apical inferior. XCELERA [facility] Radiology Study observation (narrative) [facility] EKGon 10-13-2023 TRACEMASTERVUE [facility] Glucose Glucometer (BldC) [M ass/Vol]on 10-13-2023 Glucose [Mass/Vol] 173 mg/dL High 65-99 [facility] HEMOGLOBINon 10-13-2023 Hemoglobin (Bld) [Mass/Vol] 12.8 g/dL Normal 11.7-15.5 [facility] Comment on above: Performed By: #### P INR, 97738-6, 718-7, PLTCT, BMP, 85500-5 #### [facility] ([id number]) [address], [address] [place] [address] Hemoglobinon 10-13-2023 Hemoglobin (Bld) [Mass/Vol] 12.8 g/dL 11.7 - 15.5 g/dL [facility] Heparin unfractionated Chrom ogenic method Qn (PPP)on 10-13-2023 ANTI XA UFH 0.74 IU/mL High 0.30-0.70 [facility] Comment on above: Result Comment: Opti mal time for testing is 6 hrs post dosage This test is specific for monitoring patients on UFH, and is not recommended for use with other Anti-Xa medications. Performed By: #### P INR, 08027-7, 718-7, PLTCT, BMP, 76763-8 #### [facility] ([id number]) [address], [address] [place] [address] Interpretation and review of laboratory results Abnormal [facility] ANTI XA UFH 0.69 IU/mL Normal 0.30-0.70 [facility] Comment on above: Result Comment: Opti mal time for testing is 6 hrs post dosage This test is specific for monitoring patients on UFH, and is not recommended for use with other Anti-Xa medications. Performed By: #### P INR, 35323-3, 718-7, PLTCT, BMP, 98740-0 #### [facility] ([id number]) [address], [address] [place] [address] [facility] ANTI XA UFH 0.72 IU/mL High 0.30-0.70 [facility] Comment on above: Result Comment: Opti mal time for testing is 6 hrs post dosage This test is specific for monitoring patients on UFH, and is not recommended for use with other Anti-Xa medications. Performed By: #### P INR, 32649-9, 718-7, PLTCT, BMP, 91272-5 #### [facility] ([id number]) [address] [facility], [address] [place] [address] Interpretation and review of laboratory results Abnormal [facility] Ionized calciumon 10-13-2023 Calcium.ionized (Bld) [Mass/Vol] 3.9 mg/dL Low 4.5 - 5.3 mg/dL [facility] Calcium.ionized (Bld) [Mass/Vol] 3.8 mg/dL Low 4.5 - 5.3 mg/dL [facility] Ionized magnesiumon 10-13-19 Magnesium Ionized ISE (Bld) [Moles/Vol] 0.64 mmol/L 0.45 - 0.74 mmol/L [facility] Comment on above: NEW REFERENCE RANGE Magnesium Ionized ISE (Bld) [Moles/Vol] 0.24 mmol/L Critically low 0.45 - 0.74 mmol/L [facility] Comment on above: NEW REFERENCE RANGE MAGNESIUMon 10-13-2023 Magnesium [Mass/Vol] 1.1 mg/dL Low 1.8-2.6 [facility] Comment on above: Performed By: #### P INR, 58612-2, 718-7, PLTCT, BMP, 31314-6 #### [facility] ([id number]) [address] [facility], [address] [place] [address] Magnesiumon 10-13-2023 Magnesium [Mass/Vol] 1.1 mg/dL Low 1.8 - 2.6 mg/dL [facility] Magnesium Ionized ISE (Bld) [Moles/Vol]on 10-13-2023 Magnesium [Moles/Vol] 0.64 mmol/L Normal 0.45-0.74 [facility] Comment on above: Result Comment: NEW REFERENCE RANGE Performed By: #### P INR, 21377-2, 718-7, PLTCT, BMP, 60500-8 #### [facility] ([id number]) [address], [address] [place] [address] Magnesium [Moles/Vol] 0.24 mmol/L Critically low 0.45-0.74 [facility] Comment on above: Result Comment: NEW REFERENCE RANGE Performed By: #### 3 8230-9, 45202-4 #### [facility] ([id number]) [address] [facility], [address] [place] [address] Magnesium [Mass/Vol]on 10-12 Interpretation and review of laboratory results Abnormal [facility] Natriuretic peptide B [Mass/ Vol]on 10-13-2023 Natriuretic peptide B (Bld) [Mass/Vol] 1101 pg/mL High <100.0 [facility] Comment on above: Performed By: #### P INR, 62446-5, 718-7, PLTCT, BMP, 91813-4 #### [facility] ([id number]) [address] [facility], [address] [place] [address] Interpretation and review of laboratory results Abnormal [facility] Natriuretic peptide B (Bld) [Mass/Vol] 1101 pg/mL High NINF - 100.0 pg/mL [facility] No Panel Informationon 10-12 [facility] Interpretation and review of laboratory results Abnormal [facility] Interpretation and review of laboratory results Abnormal [facility] Interpretation and review of laboratory results Abnormal [facility] PLATELET COUNT AND MPVon Platelet mean volume (Bld) [Entitic vol] 8.8 fL Normal 7-12 [facility] Comment on above: Performed By: #### P INR, 23157-9, 718-7, PLTCT, BMP, 82608-4 #### [facility] ([id number]) [address], [address] [place] [address] Platelets (Bld) [#/Vol] 158 10*3/uL Normal 150-450 [facility] Comment on above: Performed By: #### P INR, 18329-0, 718-7, PLTCT, BMP, 71075-2 #### [facility] ([id number]) [address], [address] [place] [address] POTASSIUMon 10-13-2023 Potassium [Moles/Vol] 4.5 mmol/L Normal 3.5-5.0 [facility] Comment on above: Performed By: #### P INR, 77860-0, 718-7, PLTCT, BMP, 25361-0 #### [facility] ([id number]) [address], [facility] [address] [place] [address] Potassium [Moles/Vol] 3.1 mmol/L Low 3.5-5.0 [facility] Comment on above: Performed By: #### P INR, 01468-7, 718-7, PLTCT, BMP, 00892-4 #### [facility] ([id number]) [address], [address] [place] [address] PROTIME AND INRon 10-13-2023 INR Coag (PPP) [Relative time] 1.4 {INR} High 0.8-1.1 [facility] Comment on above: Performed By: #### P INR, 16289-4, 718-7, PLTCT, BMP, 22238-1 #### [facility] ([id number]) [address] [address] [place] [address] PT Coag (PPP) [Time] 16.6 s High 9.8-13.2 [facility] Comment on above: Performed By: #### P INR, 99086-8, 718-7, PLTCT, BMP, 32404-0 #### [facility] ([id number]) [address], [address] [place] [address] Platelet counton 10-13-2023 Platelet mean volume (Bld) [Entitic vol] 8.8 fL 7 - 12 fL [facility] Platelets (Bld) [#/Vol] 158 10*3/uL [facility] Potassiumon 10-13-2023 Potassium [Moles/Vol] 4.5 mmol/L 3.5 - 5.0 mmol/L [facility] Potassium [Moles/Vol] 3.1 mmol/L Low 3.5 - 5.0 mmol/L [facility] Potassium [Moles/Vol]on [facility] Interpretation and review of laboratory results Abnormal [facility] Protime & INRon 10-13-2023 INR Coag (PPP) [Relative time] 1.4 {INR} High [facility] PT Coag (PPP) [Time] 16.6 s High [facility] THYROID PROFILEon 10-13-2023 Free T4 [Mass/Vol] 1.15 ng/dL Normal 0.61-1.60 [facility] Comment on above: Performed By: #### P INR, 07332-5, 718-7, PLTCT, BMP, 38397-1 #### [facility] ([id number]) [address], [address] [place] [address] TSH 1.80 uIU/mL Normal 0.49-4.67 [facility] Comment on above: Performed By: #### P INR, 32432-9, 718-7, PLTCT, BMP, 79778-3 #### [facility] ([id number]) [address], [address] [place] [address] TROPONIN Ion 10-13-2023 Troponin I.cardiac [Mass/Vol] 9.76 ng/mL Critically high 0.00-0.04 [facility] Comment on above: Result Comment: Concentrations greater than or equal to 0.05 ng/ml are considered elevated. Elevations of Troponin may be due to causes other than myocardial ischemia. Recommend serial Troponin testing be performed. Performed By: #### P INR, 12813-6, 718-7, PLTCT, BMP, 84035-0 #### [facility] ([id number]) [address] [facility], [address] [place] [address] Troponin I.cardiac [Mass/Vol] 13.09 ng/mL Critically high 0.00-0.04 [facility] Comment on above: Result Comment: Concentrations greater than or equal to 0.05 ng/ml are considered elevated. Elevations of Troponin may be due to causes other than myocardial ischemia. Recommend serial Troponin testing be performed. Performed By: #### P INR, 74725-8, 718-7, PLTCT, BMP, 68541-6 #### [facility] ([id number]) [facility] [place] [address] Troponin I.cardiac [Mass/Vol] 13.88 ng/mL Critically high 0.00-0.04 [facility] Comment on above: Result Comment: Concentrations greater than or equal to 0.05 ng/ml are considered elevated. Elevations of Troponin may be due to causes other than myocardial ischemia. Recommend serial Troponin testing be performed. Performed By: #### P INR, 69269-7, 718-7, PLTCT, BMP, 83775-6 #### [facility] ([id number]) [address] [facility], [address] [place] [address] Thyroid profile includes TSH FT4on 10-13-2023 Free T4 [Mass/Vol] 1.15 ng/dL 0.61 - 1. 60 ng/dL [facility] TSH Qn 1.80 m[IU]/L [facility] Troponin Ion 10-13-2023 Troponin I.cardiac [Mass/Vol] 9.76 ng/mL Critically high 0.00 - 0.04 ng/mL [facility] Comment on above: Concentrations greater than or equal to 0.05 ng/ml are considered elevated. Elevations of Troponin may be due to causes other than myocardial ischemia. Recommend serial Troponin testing be performed. Troponin I.cardiac [Mass/Vol] 13.09 ng/mL Critically high 0.00 - 0.04 ng/mL [facility] Comment on above: Concentrations greater than or equal to 0.05 ng/ml are considered elevated. Elevations of Troponin may be due to causes other than myocardial ischemia. Recommend serial Troponin testing be performed. Troponin I.cardiac [Mass/Vol] 13.88 ng/mL Critically high 0.00 - 0.04 ng/mL [facility] Comment on above: Concentrations greater than or equal to 0.05 ng/ml are considered elevated. Elevations of Troponin may be due to causes other than myocardial ischemia. Recommend serial Troponin testing be performed. Troponin I.cardiac [Mass/Vol ]on 10-13-2023 Interpretation and review of laboratory results Abnormal [facility] Interpretation and review of laboratory results Abnormal [facility] aPTT Coag (PPP) [Time]on aPTT Coag (Bld) [Time] 48 s High 26-37 [facility] Comment on above: Performed By: #### P INR, 01594-4, 718-7, PLTCT, BMP, 84860-3 #### [facility] ([id number]) [address] [facility], [address] [place] [address] Glucose Glucometer (BldC) [M ass/Vol]on 10-12-2023 Glucose [Mass/Vol] 173 mg/dL High 65 - 99 mg/dL [facility] Interpretation and review of laboratory results Abnormal [facility] Carotid arteries - bilate ralon 10-06-2023 [...] previous report no significant changes were noted. [facility] Rad[facility] Study observation (narrative) [facility] US Carotid arteries - bilate ralOrdered By: Sal Morris on 10-06-2023 [facility] [employer] Work Phone: Blood Urea Nitrogenon 2023 Urea nitrogen [Mass/Vol] 24 mg/dL Normal 02-04 [facility] Comment on above: Performed By: #### B UN, CREAT #### [facility] [address] Creatinineon 08-06-2023 Creatinine [Mass/Vol] 1.07 mg/dL Normal 0.60-1.20 [facility] Comment on above: Performed By: #### B UN, CREAT #### [facility] [address] Creatinine Clr Calc Pharmacy 43.30 Normal [facility] Comment on above: Result Comment: PERF ORMED BY: [place] [address] PATHOLOGIST [employer] MANA[employer] LAURE BRANHAM M.D. Performed By: #### B UN, CREAT #### [address] GFR/1.73 sq M.predicted MDRD (S/P/Bld) [Vol rate/Area] 56.229 mL/min/{1.73_m2} Normal [facility] Comment on above: Performed By: #### B UN, CREAT #### [facility] [address] BNPon 10-15-2022 Natriuretic peptide B (Bld) [Mass/Vol] 732.0 pg/mL Normal <=900.0 [facility] Comment on above: Performed By: #### C CONNER, ELEC, BNP, BUN, TSH #### [facility] [address] [address] [address] Feliz Hilton BUNon 10-15-2022 Urea nitrogen [Mass/Vol] 31.0 mg/dL Critically high 7.0-18.0 [facility] Comment on above: Performed By: #### C CONNER, ELEC, BNP, BUN, TSH #### [facility] [address] [address] [address] Feliz Hilton CBC AUTO DIFFon 10-15-2022 BASO # 0.0 103/ul Normal 0.0-0.1 [facility] Comment on above: Performed By: #### C BC ####[facility] [address] [address]Dr[address] Yilan Hilton Basophils/100 WBC (Bld) 0.8 % Normal 0.2-2.0 [facility] Comment on above: Performed By: #### C BC ####[facility] [address] [place], [place] [address]Dr. Feliz Hilton EO # 0.1 103/ul Normal 0.0-0.7 [facility] Comment on above: Performed By: #### C BC ####[facility] [address] [place], [place] [address]Dr. Feliz Hilton Eosinophils/100 WBC (Bld) 2.3 % Normal 0.9-7.0 [facility] Comment on above: Performed By: #### C BC ####[facility] [address] [place], [place] [address]Dr. Feliz Hilton Erythrocyte distribution width (RBC) [Ratio] 19.8 % Critically high 11.0-15.0 [facility] Comment on above: Performed By: #### C BC ####[facility] [address] [place], [place] [address]Dr. Feliz Hilton Hematocrit (Bld) [Volume fraction] 36.1 % Normal 36.0-48.0 [facility] Comment on above: Performed By: #### C BC ####[facility] [address] [place], [place] [address]Dr. Feliz Hilton Hemoglobin (Bld) [Mass/Vol] 11.1 g/dL Critically low 12.0-16.0 [facility] Comment on above: Performed By: #### C BC ####[facility] [address] [place], [place] [address]Dr. Feliz Hilton IG # 0.01 10e3/ul Normal 0.00-0.03 [facility] Comment on above: Performed By: #### C BC ####[facility] [address] [place], [place] [address]Dr. Feliz Hilton IG % 0.2 % Normal 0.0-0.5 [facility] Comment on above: Performed By: #### C BC ####[facility] [address] [place], [place] [address]Dr. Feliz Hilton LYMPH # 2.1 103/ul Normal 1.2-3.8 [facility] Comment on above: Performed By: #### C BC ####[facility] [address] [address]Dr. Feliz Hilton Lymphocytes/100 WBC (Bld) 43.1 % Normal 20.5-60.0 [facility] Comment on above: Performed By: #### C BC ####[facility] [address] [address]Dr. Feliz Hilton MANUAL DIFF REQ NO Normal [facility] Comment on above: Performed By: #### C BC ####[facility] [address] [address]Dr. Feliz Hilton MCH (RBC) [Entitic mass] 28.7 pg Normal 26.7-34.0 [facility] Comment on above: Performed By: #### C BC ####[facility] [address] [address]Dr. Feliz Yobani MCHC (RBC) [Mass/Vol] 30.7 g/dL Normal 29.9-35.2 [facility] Comment on above: Performed By: #### C BC ####[facility] [address] [place], [place] [address]Dr. Feliz Hilton MCV (RBC) [Entitic vol] 93.3 fL Normal 81.0-99.0 [facility] Comment on above: Performed By: #### C BC ####[facility] [address] [address]Dr. Feliz Hilton MONO # 0.4 103/ul Normal 0.3-0.8 [facility] Comment on above: Performed By: #### C BC ####[facility] [address] [place], [place] [address]Dr. Feliz Hilton Monocytes/100 WBC (Bld) 9.0 % Normal 1.7-12.0 [facility] Comment on above: Performed By: #### C BC ####[facility] [address] [place], [place] [address]Dr. Feliz Hilton NEUT # 2.1 103/ul Normal 1.4-6.5 [facility] Comment on above: Performed By: #### C BC ####[facility] [address] [address]Dr. Feliz Hilton Neutrophils/100 WBC (Bld) 44.6 % Normal 43.0-75.0 [facility] Comment on above: Performed By: #### C BC ####[facility] [address] [address]Dr. Feliz Hilton Platelet mean volume (Bld) [Entitic vol] 9.5 fL Normal 9.5-13.5 [facility] Comment on above: Performed By: #### C BC ####[facility] [address] [address]Dr. Feliz Yobani PLT 273 103/ul Normal 150-450 [facility] Comment on above: Performed By: #### C BC ####[facility] [address] [address]Dr. Mónicaaureliano Yobani RBC 3.87 106/ul Critically low 4.20-5.40 [facility] Comment on above: Performed By: #### C BC ####[facility] [address] [address]Dr. Feliz Yobani WBC 4.8 103/ul Normal 4.0-11.0 [facility] Comment on above: Performed By: #### C BC ####[facility] [address] [address]DrJuan F Hilton CREATININEon 10-15-2022 Creatinine [Mass/Vol] 1.02 mg/dL Normal 0.55-1.02 [facility] Comment on above: Performed By: #### C CONNER, ELEC, BNP, BUN, TSH #### [facility] [address] [address] [address] Feliz Hilton EGFR-AF BRITISH >60 Normal >=60 [facility] Comment on above: Performed By: #### C CONNER, ELEC, BNP, BUN, TSH #### [facility] [address] [address] [address] Feliz Hilton EGFR-NON AF BRITISH 54 mL/min/1.73m2 Critically low >=60 [facility] Comment on above: Performed By: #### C CONNER, ELEC, BNP, BUN, TSH #### [facility] [address] [place] [address] Dr. Feliz Hilton ELECTROLYTESon 10-15-2022 Anion gap [Moles/Vol] 14.7 mmol/L Normal [facility] Comment on above: Performed By: #### C CONNER, ELEC, BNP, BUN, TSH #### [facility] [address] [address] [address] Feliz Hilton Chloride [Moles/Vol] 109 mmol/L Critically high 98-107 [facility] Comment on above: Performed By: #### C CONNER, ELEC, BNP, BUN, TSH #### [facility] [address] [place] [address] Dr. Feliz Hilton CO2 [Moles/Vol] 20.6 mmol/L Critically low 21.0-32.0 [facility] Comment on above: Performed By: #### C CONNER, ELEC, BNP, BUN, TSH #### [facility] [address] [place] [address] Dr. Feliz Hilton Potassium [Moles/Vol] 5.3 mmol/L Critically high 3.5-5.1 [facility] Comment on above: Performed By: #### C CONNER, ELEC, BNP, BUN, TSH #### [facility] [address] [place] [address] Dr. Feliz Hilton Sodium [Moles/Vol] 139 mmol/L Normal 136-145 [facility] Comment on above: Performed By: #### C CONNER, ELEC, BNP, BUN, TSH #### [facility] [address] [place] [address] Dr. Feliz Hilton TSHon 10-15-2022 TSH 3.265 uIU/mL Normal 0.358-3.740 [facility] Comment on above: Performed By: #### C CONNER, ELEC, BNP, BUN, TSH #### [facility] [address] [address] [address] Feliz Hilton BNPon 07-16-2022 Natriuretic peptide B (Bld) [Mass/Vol] 1093.0 pg/mL Critically high <=900.0 [facility] Comment on above: Performed By: #### T SH, LIPID, ELEC, LIVER, CREA, BUN, BNP ####[facility] [address] [address]Dr. Feliz Hilton BUNon 07-16-2022 Urea nitrogen [Mass/Vol] 23.0 mg/dL Critically high 7.0-18.0 [facility] Comment on above: Performed By: #### T SH, LIPID, ELEC, LIVER, CREA, BUN, BNP ####[facility] [address] [address]Dr. Feliz Hilton CBC AUTO DIFFon 07-16-2022 BASO # 0.1 103/ul Normal 0.0-0.1 [facility] Comment on above: Performed By: #### C BC #### [facility] [address] [address] [address] Feliz Hilton Basophils/100 WBC (Bld) 1.3 % Normal 0.2-2.0 [facility] Comment on above: Performed By: #### C BC #### [facility] [address] [place] [address] Dr. Feliz Hilton EO # 0.3 103/ul Normal 0.0-0.7 [facility] Comment on above: Performed By: #### C BC #### [facility] [address] [place] [address] Dr. Feliz Hilton Eosinophils/100 WBC (Bld) 7.2 % Critically high 0.9-7.0 [facility] Comment on above: Performed By: #### C BC #### [facility] [address] [place] [address] Dr. Feliz Hilton Erythrocyte distribution width (RBC) [Ratio] 23.4 % Critically high 11.0-15.0 [facility] Comment on above: Performed By: #### C BC #### [facility] [address] [place] [address] Dr. Feliz Hilton Hematocrit (Bld) [Volume fraction] 30.8 % Critically low 36.0-48.0 [facility] Comment on above: Performed By: #### C BC #### [facility] [address] [place] [address] Dr. Feliz Hilton Hemoglobin (Bld) [Mass/Vol] 9.1 g/dL Critically low 12.0-16.0 [facility] Comment on above: Performed By: #### C BC #### [facility] [address] [place] [address] Dr. Feliz Hilton IG # 0.01 10e3/ul Normal 0.00-0.03 [facility] Comment on above: Performed By: #### C BC #### [facility] [address] [place] [address] Dr. Feliz Hilton IG % 0.3 % Normal 0.0-0.5 [facility] Comment on above: Performed By: #### C BC #### [facility] [address] [place] [address] Dr. Feliz Hilton LYMPH # 1.5 103/ul Normal 1.2-3.8 [facility] Comment on above: Performed By: #### C BC #### [facility] [address] [place] [address] Dr. Feliz Hilton Lymphocytes/100 WBC (Bld) 37.3 % Normal 20.5-60.0 [facility] Comment on above: Performed By: #### C BC #### [facility] [address] [place] [address] Dr. Feliz Hilton MANUAL DIFF REQ NO Normal [facility] Comment on above: Performed By: #### C BC #### [facility] [address] [place] [address] Dr. Feliz Hilton MCH (RBC) [Entitic mass] 23.9 pg Critically low 26.7-34.0 [facility] Comment on above: Performed By: #### C BC #### [facility] [address] [place] [address] Dr. Feliz Hilton MCHC (RBC) [Mass/Vol] 29.5 g/dL Critically low 29.9-35.2 [facility] Comment on above: Performed By: #### C BC #### [facility] [address] [place] [address] Dr. Feliz Hilton MCV (RBC) [Entitic vol] 81.1 fL Normal 81.0-99.0 [facility] Comment on above: Performed By: #### C BC #### [facility] [address] [place] [address] Dr. Feliz Hilton MONO # 0.4 103/ul Normal 0.3-0.8 [facility] Comment on above: Performed By: #### C BC #### [facility] [address] [place] [address] Dr. Feliz Hilton Monocytes/100 WBC (Bld) 10.3 % Normal 1.7-12.0 [facility] Comment on above: Performed By: #### C BC #### [facility] [address] [place] [address] Dr. Feliz Hilton NEUT # 1.7 103/ul Normal 1.4-6.5 [facility] Comment on above: Performed By: #### C BC #### [facility] [address] [place] [address] Dr. Feliz Hilton Neutrophils/100 WBC (Bld) 43.6 % Normal 43.0-75.0 [facility] Comment on above: Performed By: #### C BC #### [facility] [address] [place] [address] Dr. Feliz Hilton Platelet mean volume (Bld) [Entitic vol] 9.0 fL Critically low 9.5-13.5 [facility] Comment on above: Performed By: #### C BC #### [facility] [address] [place] [address] Dr. Feliz Hilton PLT 285 103/ul Normal 150-450 [facility] Comment on above: Performed By: #### C BC #### [facility] [address] [place] [address] Dr. Feliz Hilton RBC 3.80 106/ul Critically low 4.20-5.40 [facility] Comment on above: Performed By: #### C BC #### [facility] [address] [address] [address] Feliz Hilton WBC 3.9 103/ul Critically low 4.0-11.0 [facility] Comment on above: Performed By: #### C BC #### [facility] [address] [address] [address] Feliz Hilton CREATININEon 07-16-2022 Creatinine [Mass/Vol] 0.87 mg/dL Normal 0.55-1.02 [facility] Comment on above: Performed By: #### T SH, LIPID, ELEC, LIVER, CREA, BUN, BNP ####[facility] [address] [address]Dr. Feliz Hilton EGFR-AF BRITISH >60 Normal >=60 [facility] Comment on above: Performed By: #### T SH, LIPID, ELEC, LIVER, CREA, BUN, BNP ####[facility] [address] [address]DrJuan F Hilton EGFR-NON AF BRITISH >60 Normal >=60 [facility] Comment on above: Performed By: #### T SH, LIPID, ELEC, LIVER, CREA, BUN, BNP ####[facility] [address] [address]Dr. Feliz Hilton D-DIMERon 07-16-2022 D-DIMER 0.89 mg/L FEU Critically high <=0.59 [facility] Comment on above: Performed By: #### D DIM #### [facility] [address] [address] [address] Feliz Hilton D-DIMER COMMENTS SEE BELOW Normal [facility] Comment on above: Result Comment: Incr eases [...] hospitalization. Performed By: #### D DIM #### [facility] [address] [address] [address] Feliz Hilton ELECTROLYTESon 07-16-2022 Anion gap [Moles/Vol] 13.9 mmol/L Normal [facility] Comment on above: Performed By: #### T SH, LIPID, ELEC, LIVER, CREA, BUN, BNP ####[facility] [address] [address]Dr. Feliz Hilton Chloride [Moles/Vol] 111 mmol/L Critically high 98-107 [facility] Comment on above: Performed By: #### T SH, LIPID, ELEC, LIVER, CREA, BUN, BNP ####[facility] [address] [address]Dr. Feliz Hilton CO2 [Moles/Vol] 21.4 mmol/L Normal 21.0-32.0 [facility] Comment on above: Performed By: #### T SH, LIPID, ELEC, LIVER, CREA, BUN, BNP ####[facility] [address] [address]Dr. Feliz Hilton Potassium [Moles/Vol] 4.3 mmol/L Normal 3.5-5.1 [facility] Comment on above: Performed By: #### T SH, LIPID, ELEC, LIVER, CREA, BUN, BNP ####[facility] [address] [address]Dr. Feliz Hilton Sodium [Moles/Vol] 142 mmol/L Normal 136-145 [facility] Comment on above: Performed By: #### T SH, LIPID, ELEC, LIVER, CREA, BUN, BNP ####[facility] [address] [address]Dr. Feliz Hilton GLYCOHEMOGLOBIN A1Con 2022 ADA RECOMMENDATION SEE BELOW Normal [facility] Comment on above: Result Comment: ADA RECOMMENDED LIMIT 4.0 - 6.0 ADA THERAPEUTIC TARGET < 7.0 ACTION SUGGESTED > 7.0 Performed By: #### A 1C ####[facility] [address] [place], [place] [address]NnDr. Feliz Hilton Glucose [Mass/Vol] 120 mg/dL Normal [facility] Comment on above: Performed By: #### A 1C ####[facility] [address] [place], [place] [address]JbDr. Feliz Hilton HbA1c (Bld) [Mass fraction] 5.8 % Normal 4.5-6.2 [facility] Comment on above: Performed By: #### A 1C ####[facility] [address] [address]Dr. Feliz Hilton LIPID PROFILEon 07-16-2022 CHOL-HDL RATIO NORM SEE BELOW Normal [facility] Comment on above: Result Comment: 3.3 - 4.4 LOW RISK 4.4 - 7.1 AVERAGE RISK 7.1 - 11.0 MODERATE RISK >11.0 HIGH RISK Performed By: #### T SH, LIPID, ELEC, LIVER, CREA, BUN, BNP #### [facility] [address] [address] [address] Feliz Hilton Cholesterol [Mass/Vol] 107 mg/dL Normal <=200 [facility] Comment on above: Performed By: #### T SH, LIPID, ELEC, LIVER, CREA, BUN, BNP #### [facility] [address] [address] [address] Feliz Hilton Cholesterol in HDL [Mass/Vol] 52 mg/dL Normal 40-60 [facility] Comment on above: Performed By: #### T SH, LIPID, ELEC, LIVER, CREA, BUN, BNP #### [facility] [address] [address] [address] Feliz Hilton Cholesterol in LDL [Mass/Vol] 30.2 mg/dL Normal [facility] Comment on above: Performed By: #### T SH, LIPID, ELEC, LIVER, CREA, BUN, BNP #### [facility] [address] [address] [address] Feliz Hilton Cholesterol.total/ Cholesterol in HDL [Mass ratio] 2.1 {ratio} Normal [facility] Comment on above: Performed By: #### T SH, LIPID, ELEC, LIVER, CREA, BUN, BNP #### [facility] [address] [address] [address] Feliz Hilton HDL NORMAL > or = 60 mg/dl - LO W CARDIOVASCULAR RISK <40 mg/dl - HIGH CARDIOVASCULAR RISK Normal [facility] Comment on above: Performed By: #### T SH, LIPID, ELEC, LIVER, CREA, BUN, BNP #### [facility] [address] [place] [address] Dr. Feliz Hilton LDL CALC NORMAL SEE BELOW Normal [facility] Comment on above: Result Comment: <100 mg/dl OPTIMAL 100 - 129 mg/dl NEAR OR ABOVE OPTIMAL 130 - 159 mg/dl BORDERLINE HIGH 160 - 189 mg/dl HIGH >190 mg/dl VERY HIGH Performed By: #### T SH, LIPID, ELEC, LIVER, CREA, BUN, BNP #### [facility] [address] [place] [address] Dr. Feliz Hilton Triglyceride [Mass/Vol] 124 mg/dL Normal <=150 [facility] Comment on above: Performed By: #### T SH, LIPID, ELEC, LIVER, CREA, BUN, BNP #### [facility] [address] [place] [address] Dr. Feliz Hilton VLDL CALC 24.8 mg/dL Normal [facility] Comment on above: Performed By: #### T SH, LIPID, ELEC, LIVER, CREA, BUN, BNP #### [facility] [address] [place] [address] Dr. Feliz Hilton LIVER PROFILEon 07-16-2022 Albumin [Mass/Vol] 2.6 g/dL Critically low 3.4-5.0 [facility] Comment on above: Performed By: #### T SH, LIPID, ELEC, LIVER, CREA, BUN, BNP #### [facility] [address] [place] [address] Dr. Feliz Hilton Albumin/Globulin [Mass ratio] 0.8 {ratio} Normal [facility] Comment on above: Performed By: #### T SH, LIPID, ELEC, LIVER, CREA, BUN, BNP #### [facility] [address] [place] [address] Dr. Feliz Hilton ALP [Catalytic activity/Vol] 63 U/L Normal 46-116 [facility] Comment on above: Performed By: #### T SH, LIPID, ELEC, LIVER, CREA, BUN, BNP #### [facility] [address] [place] [address] Dr. Feliz Hilton ALT [Catalytic activity/Vol] 18 U/L Normal 14-59 [facility] Comment on above: Performed By: #### T SH, LIPID, ELEC, LIVER, CREA, BUN, BNP #### [facility] [address] [place] [address] Dr. Feliz Hilton AST [Catalytic activity/Vol] 23 U/L Normal 15-37 [facility] Comment on above: Performed By: #### T SH, LIPID, ELEC, LIVER, CREA, BUN, BNP #### [facility] [address] [place] [address] Dr. Feliz Hilton BILI, CONJUGATED 0.1 mg/dL Normal 0.0-0.2 [facility] Comment on above: Performed By: #### T SH, LIPID, ELEC, LIVER, CREA, BUN, BNP #### [facility] [address] [place] [address] Dr. Feliz Hilton Bilirubin [Mass/Vol] 0.1 mg/dL Critically low 0.2-1.0 [facility] Comment on above: Performed By: #### T SH, LIPID, ELEC, LIVER, CREA, BUN, BNP #### [facility] [address] [place] [address] Dr. Feliz Hilton Globulin (S) [Mass/Vol] 3.1 g/dL Normal [facility] Comment on above: Performed By: #### T SH, LIPID, ELEC, LIVER, CREA, BUN, BNP #### [facility] [address] [place] [address] Dr. Feliz Hilton Protein [Mass/Vol] 5.7 g/dL Critically low 6.4-8.2 [facility] Comment on above: Performed By: #### T SH, LIPID, ELEC, LIVER, CREA, BUN, BNP #### [facility] [address] [place], [place] [address] Dr. Feliz Hiltno SED RATE WESTERGRENon 2022 SED RATE 14 mm/hr Normal <=30 [facility] Comment on above: Performed By: #### S EDR ####[facility] [address] [address]Dr. Feliz Hilton TSHon 07-16-2022 TSH 5.167 uIU/mL Critically high 0.358-3.740 [facility] Comment on above: Performed By: #### T SH, LIPID, ELEC, LIVER, CREA, BUN, BNP ####[facility] [address] [id number]. Feliz Hilton VITAMIN D 25 OHon 07-16-2022 VIT D 25-OH 22.4 ng/mL Normal [facility] Comment on above: Performed By: #### V ITAD ####[facility] [address] [address]Dr. Feliz Hilton VIT D RANGES SEE BELOW Normal [facility] Comment on above: Result Comment: <20 ng/mL Vit D deficient 20 - <30 ng/mL Vit D insufficient 30 - 100 ng/mL Vit D sufficient >100 ng/mL Potential Toxicity Performed By: #### V ITAD ####[facility] [address] [address]Dr. Feliz Hilton MG MAMM SCREEN 3D ERLL CADon 06-14-2022 MG MAMM SCREEN 3D RELL CAD Patient: ASHVIN RENE Exam Date: 06/14/2022 : 1955 Gender:F Ordering : DR TUSHAR SOLANO D.O. Admission #: [id number] Family : Order #: [id number] CLICK HERE TO VIEW EXAM RADIOLOGY REPORT [...] No Treatments None Family Cancers None LOCATION: [facility] BREAST COMPOSITION: Scattered areas fibroglandular [...] Post MD on 06/14/2022 at 14:19 Normal [facility] XR hand RT min 3V*on 022 XR hand RT min 3V* [facility] [employer] Other XR hand RT min 3V* [facility] [employer] Other XR hand RT min 3V* [address] [place] [address] [employer] Other XR hand RT min 3V* [place] [address] [employer] Other XR hand RT min 3V* XRay Report [employer] Other XR hand RT min 3V* Signed [employer] Other XR hand RT min 3V* Patient: Annette Rene MR#: [id number] [employer] Other XR hand RT min 3V* 20 [employer] Other XR hand RT min 3V* : 1955 Acct:[id number] [employer] Other XR hand RT min 3V* Age/Sex: 66 / F ADM Date: 05/20/22 [employer] Other XR hand RT min 3V* Loc: [facility] Room: Ty pe: REG CLI [employer] Other XR hand RT min 3V* Attending Dr: [place] FRANK [employer] Other XR hand RT min 3V* Copies to: ZAC Michaud [employer] Other XR hand RT min 3V* Ordering Provider: ZAC Perez [employer] Other XR hand RT min 3V* Date of Service: 05/20/22 [employer] Other XR hand RT min 3V* 96522) XR/XR hand RT min 3V*: M79.641 [employer] Other XR hand RT min 3V* [address] film [employer] Other XR hand RT min 3V* COMPARISON:None N [employer] Other XR hand RT min 3V* HISTORY:Right hand injury. [employer] Other XR hand RT min 3V* No fracture, disloca tion or focal soft tissue abnormality seen. Degenerative changes and [employer] Other XR hand RT min 3V* atherosclerosis. [employer] Other XR hand RT min 3V* X R/XR hand RT min 3V* [employer] Other XR hand RT min 3V* IMPRESSION:No acute findings [employer] Other XR hand RT min 3V* Impression dictated by: Rodrick Galvin M.D.05/20/2022 11:13 AM [employer] Other XR hand RT min 3V* Dictation Location: [place] [address] [employer] Other XR hand RT min 3V* Transcribed By: HERNAN 05/20/22 [address] [facility] [employer] Other XR hand RT min 3V* Dictated By: Amadou Galvin DO 05/20/22 [address] [facility] [employer] Other XR hand RT min 3V* Signed By: [employer] Other XR hand RT min 3V* 05/20/22 1113 [facility] [employer] Other Coding Summaryon 08-21-2021 Coding Summary [employer]Base 64 CkbummptRBg9jNw+PGhlYWQ+PE 0QPDJuG01asUCjxK4HQ4rXRB9W LFALGPWEVY4JDY4axFN4KJvlG4 VybiAv YkfegBUpQR49LNv8RLS7lXleVI ksoY1knCDmO0t6WcIpKM81lW59 EYwmNFGzUiH4HkYkovblzQTp E1fwHgGumNLzNdc+PHRhYmxlIH ofYHHfXTgvPFKiIrIduKbuJS0k Ia4tXHYoXUVbfAcmlUGaPmYf h8wyDKHaCWmuKL2ocHwhB8UadF I9QCPtl6l8Sp23pRM+PHRkIHN0 qTsiNPaek254FeIhf3uxFEM7 sSGjFJowHHK4G09ic5O1TISwEX NoYWE8xVE7jU2kiRbyziprU0Tt qCGsZbH7IOF6iQEnxH2gkWsr wwvidA2tUbo+V81KQW6NAUREHB 1VOqe5Z6YyTtdjoOX+US25SEBi GD53pIYylRYdq2pskAw0BuYv FCRfAVX7aQhdVWbud7DlAWRrL2 9vmKSgd5O0JXGabJbnaUVfMzNm uDH4cH8lXTmqehwlk8ntsfon Ngvtr7ldld46xZ45J09uNVybAP TuXQS5KLGkZASqcUfhfs4ccS8i Ii8+NBdrf9vgq2eeuLw5CwGq FQVscuOfoHvtOKW2s3UvJv15U6 DgrGsds0RoJqh0nk56zXDys0G9 jBY0JNmyWGFdbG2eQFbsIbO8 HRMdGgGrjT23uKNkAXlmUx3zuK ltgTprOC0uULTnxcauFARocV6y RLJowABamHnsOK4uNJUkscjc i690EjGnPBG1BXLdtFOiK0XvyT 5tXbVlRDHyRWRpJ6PojOJsQNqv Z996JJdfKoK2HLGfgdNeN9Xy KXSwgGubRnO7c4B0Wo5Sp5Wjoz vyVVO1TOcvZHRbPsR2TwTaDlJ9 Z5AfIfx6CCAzlAsmWM1zF8Lf EPQuuojoucoycXF7LCWyAOCpcN 01kBCzJErqIt5dj0B7a896INRi DLElgQ85Vf1pjPbgSCUatJAE qG5vyavub4kchdltIrOwWNVsHZ p4JBn3LBYudQfdIkTfQVJ2NwP0 VQX6pHKkwI0vtMrzfihpoI0o Oyc+N84bkY7oZXB5LBI0fyqgIT VivbEpGV04ZG77I7MlIsqgxXCg bGU+STDqicWwzAflQE1xOxSw x8ukn7PeXFycR3YlZOMmIIbgVy z0WXEkJQL1rFR2xT4aGPGkKFvo h2O5cTG8E2DvftZpyg0ov4gs YFLoHWaaN25dwDQvh6M1BUWymN X5YJHinJtmWwYqiQ41Jln+PGNv xBzly6NpBmlqm8oms0hmwPl9 CeBvSGNfpjNifCxlEVZ0v3FeRc 17B84fEWwrUILcECAfCQOoZPPu aBdwow1mqQ8fKv4+PGNvbCB3 wDA0tR7rKENfUsM0IHvqS816Bo CdvRNxSptjx4iso5thrLy5OcPd BQHfnxDqbHqyGFL3l2DwWn96 A14hEBhjLRCoFTNvHJHqIQIzpZ nhup0bcF7xKt5+BO2xi7rpbz55 hW35xXA+GJYcIDC0uChgNXet DZVzeS1tUPydHrI9LTZzMxZwvQ 86pDPcQKvmCk9ffOopsKtcEB6y KAUtipisy661LcDji1qtDQCv aYVyKUqfJVQ5I60mq1E9WNAdIF XhNSW4iKY9xM7hxBuyskfvhLXn xSbhegDeoIdcEFkiTMmmQ592 IHRvcDsnPlBhdGllbnQgTmFtZT e5T3CrVkf0MIHnwRlxQB8ldVJq QDeuUi3aqAftoPwtQQ7kIYAw yihre993FqPzp1djCVLovTDaAF bsFGC3G70oq9C4LEYxDAIoHBP6 xAP3wI2klDshpkgenLFsfDlx jdDpkXlrJMcjYNvtY257PKZzaN ejDvXulsHcVQNhzGT0EZ66JU00 yQXzq3F3rBW5V8SlDLGijthb boerhHU3BOCnQHBelU69Om4fmZ kuYo2vVOHxGSB6OAIgzLQyR2Si hC7kUkCmRKQlRTQlG3SjrBFn DIvyG208GAwtAzH4RNKixhYqE7 MiEYOrkHzlBaT0c6S6Yz8XV2J6 NI69WK06vVPxd9V0sEQ8D5Vo LLXhdxzyaglpuQY6FFLfRSFghG 50Bt2yyMdtHf7uPTYqBIN9JUNr vFQsQ2QsnU5oSoJnFFBwAHZi F9WjeFClAWhcB164RHoiZuX8UA TtvrXaW3QoXYJyjZegCyN1z3D7 Fv3PXPu6RB19VZ39xPImb5P1 gGA7V3UgINUyksbwtwjgfFB1YG YmJWXleE57Fy4hsOpeUa6nCNAc KCF5XQYqqHPaW8ZliS0kVqCl RBQxCYRvY7WbvEIdUSntA107CD iaKrS4YZBthzGhO4EvFOBajOcd WbN2i8O1Up3ZPIOhQN92JGK6 dMX7JP41RD39G9HlCoemfXFlcQ U+PHRhYmxlIHdpZHRoPScxMDAl RqUymFtrQS1bHj7nAQKpBPXp dQvjuYZcHiYhi7zjOIZyHOhnMX 8xyCliO8OnjBX9MLLxt5e0Np14 Q47fU4HzsYZ+HWYwzOO5tYU1 uZ3kSnDvSaI2ALuiE691NlNdaN KpJjmzb9odm1hmjNs5MyE7DVUt fhTfnDecDWS9q0ZaGk74N57a IHdpZHRoPSIxNSUiIHZhbGlnbj 6ttH1aIc9+GMWqiYW3yGM7wB6n GhQzDuO4BXxaL883YpFunUGg Yivvw7iih8bizNv7LjMxWIJgzp PwsKrhNOM8n2XcDg79L2DooYsy a1NgYxm7kk18gNKfd3G2eNC8 C9EaWOLixjzruPFxjNulQO3lDW NacpewZXYvqJ8yPMLgQ2f2QyYf HaM4WKliX7PnrvT7PEXzbULg QRfoCYV9S97vv4C6NFGvTWAwSQ L9rFX5oK5atRaufjmzyIJxrOic woVwcNxtMXdcTCxpP923RYSh cGeuOQJxiJ2eORGvgLLykPufJG 9yAKCikaoiZziKHm3GMeqxC3HT RI2bSPwkcIU+NNWtLAT9zFbr JThySYLguA1dSURhS7e5LjHdHh Y9GRxvD7OwJLMrzaacVh08kS9y ZeWeFeQ8JPkzO4IoxiK7HRFb yBPyOEtvHPA9K25lx9K2BOSwGR YeBGI0kAZ7rH3noOyfxztdvBHg xMaktmUsvVwsXKemXSagQ741 OUGssHcnPhF2EnD6ThN4VWB6S9 RwLvd2ZBNgnJxdIN9joTRxJWqe Hh8rrTewmUryOX5tFTLdwbfa ILMzaZ8xVLLrnBEjpBauFT6zQD Saqdyhw290LjRyXNO0NBPoqSAl L0LrhG2jIkGwSFGmZKFxB1Ja xOTzEIxxM453UNhiPzV7NIJuni DiM2HsYJTtpJenDqB8c2S9Dm52 NyBZZWFyczwvdGQ+PHRkIHN0 cIlqJTnrUPFsuX8yBMUrB8w0Gk IjIfO6TGjwV0UlEUXgffacWk51 hZ2kKgRcJnA3YFqwY1UorhY7 UNHukBWzZDseLLM6P49kl6M0KO VgMHYvNGJ6lTN4yC5oqPxgjaqf bGVmdDsgdmVydGljYWwtYWxp L156LLDsaCvoWdBQYYPKMTvxbG Q+ZIArYRJ2sPecAKhlEQRihJ2d IAIsH7i7HcMaLlE5ORymC5Fe CNYvmbtrTt36aW2pRfJyNbW5GM wgV2EfezK9JRDglHMpSCawPEZ1 A24uk2M4ZDAaFWKqNOG0qZE1 bW6bnLekhmnryGYxdNtvekIuaX bfOAwuBRoiI373DUOloQpgLl2s z1XlmiK5mR6bSC86QP03V8Fc PjwvdGFibGU+PHRhYmxlIHdpZH VmIVqgRPDbSdQzyBgrLE2lId2v MLNaVLEbnPmgrUFsXhMhm6gd IQUiFNpvDS5wsQukS9VlcWT2AQ Axv6d6Ec23F94bP7GjzNR+PGNv gAO0vAJ3yB2mWfTcQiM1NTpr Z486IyMerODfIdsyg0hzi4vxiJ x1YwGhJLIteeQtlCjwUFJ2v0Oc Hj66J46tIJklKBKeUQLhWHIv BYUtgJmmza2bfR0aMi4+PGNvbC U6qRM5gK7oSrNgVxQ5TXenO929 VgPlqCIaIjnsD22rP7JjbGG+ CSLfIed1EQLxrPquFR8gjRAsJY znNg8yCNU8ExJcEuRgCEljP2Ql FBDrfulcbwquyKJ4FUSnYDZe cO89Ip3wbYyeBf8tHLUrZCF4JX PdoGQbO0CfxY8gEwLgGSXtUSJy F5OwfLDiREiwI602KSpmEzZ8 OCPnksPoC6ViPHVwdJyeCwF5w6 G3Co9KeGryzZOuUL5rDmAqWNi4 Z9ZfDbr0NSEbfCyhFP7kiIAv URmtCu4nyOqowUyxWQ2cGVCfle mca789FdRlj9tvNTRvzVPgBXqz SQQ9P85co0E5BBStPSBaVIY3 lYY4rY3ixWpchxnstPRylHnsvq HdvAhiOZgaIAaaT020YVQhvQui ZpXBHjr0M3AoSxe1CJXkgVge BZ1qtMWmLEclCh4cbDouhQasPB 4lUIZfxrnju604XxPoh2wgNWEp fKGxUJbmRMX5Q96lr2H7HJDs GOWeGDM1kHG7yV4eoAuqykqweQ IjaLwutgGkpYloMRrjZAcfZ956 CBSrnEtjMz7GQvj1B9RySlq4 TTOvsZfvZA6ubVLjXCndUv2nqN hxoZudUL3sOXKujserm892OwKa k1xwQLDatOPzQKnsWJQ6V96d l1R1PREhQLSxPBA7kGR9aQ0bxE lnbjogbGVmdDsgdmVydGljYWwt SXroF194ORIkdQzxKdPxqPLf OjwvdGQ+UZ99os99M0FwSdpdVy n7ABBfCJE2xPB5oV2wSHXkLVuo i7B3uME7A5GuatNqbx4mq4cg YXB (more content not included)... [facility] Coding Summaryon 08-20-2021 Coding Summary [employer] 64 VqmsmkquVGe3xWb+PGhlYWQ+PE 8YNDNbB81ipPIvdG0LK8kRQK7A BABPXOFCEV6MKU2xsXG8WGhuL8 VybiAv JanfcZUzER12JIg8QKA3hGelLL gbzM7cnZMcK9m6BhUaPU40eX58 DXgyASTbGiI1UbPfzrkjqWPc Y1wkWrYjaCLdYyn+PHRhYmxlIH jdDVMxCOmcJQYpJyFhjJddCO5c Wr5dXPLmDBHkdPoaxXOaAeAl y5yhWLKrPTdkBL3ohRxhU9GxuV W4EYJtv1h6Vj67yKH+PHRkIHN0 vPvdCUwnq937ElQbk9ioNXE9 fMLmYRjkIFQ7Z74rt8L1XTEtKH WmEGO7hVM1sL0ciAaejpyhH6Ax zKImLdV7HGB9oVMaqZ8swTgr wrbhkE8bMow+F91QTA5DQVQMMN 0REyz3E2CxPilxjAQ+WW35ECKn YS33qSBpnMUda1ncnRz0HxIk LFAnGRN2qQqlWQedc7VqGQIcF8 5flJGme6N0WZBcbJghhTXhAdLd mZB3cC4zLZwuppnhw6grcqlv Wwnln4izlm48vM96H08hYMnoKC TxBCC7QKTgERFabCilpq1gwG6s Ii8+HZaty7szd0tpzAr1RqHv XTKqxjObuDqnOOB9b3MsAh38L2 VqyGvlw0PlEdc8qw89eUPwp4S4 jDR7SQywOFKngK7dTOsfPcO4 IDThWzSszR76bGYpYMtpPy5qzK akrKbkPX0xNSPjyastWMWayG1h DJJtwSZhoIggKS2cCJEsysax o344RwAmXED2GCMaiEVbR0AtsM 1qDoIwYIEfGVEcR8FotHPfCRzf A540SAzaYlX3ILMrusIcK3Jk QIPuyErxEcO6b8B1Xo1Qy6Vcua jhCVN4FXtcCQOdTpM0ZgYvYmY1 P1TsShl8AOLmuDikNI4rI9Ek FQVbuoslyeqjgQE7SEVtSOEbqY 70mWPsMUgfGl9yp4Z7q049EEJk MIJurY37Uq0dfEjuLCGypPRA gX5bwpilh6yygjqxIlSsLHQjVS w4ZMy7IAKvkMssBgDpQIV2TkU7 WBL7rZIzhD5jgMaqsizofS1c Oyc+O85xtP2eBOJ7GAV2yntxGE SxawWpEA63BM75O5NuIktzvRKg bGU+KQKffgObaQbfOZ2jUaJa f3boy7LqVKyrC8IzSXQoRVmyJh i8SBCpMGT6zAH2eW1tDGNvRRhr t2P5fAW8S0QqapDfep7am9qy ELPpOVreK18qqCAil3H9IZXbcX H1MTFyiOhiFeJiuC89Tza+PGNv hGgeb4LrHnaqk6afm8wcbYq5 XhLzYEFyynPjbDkbXAL3o5SwIw 51Z13wAPnhNPHeWFZlRBUcHGVp lBpsot1eeE9dRw1+PGNvbCB3 tKG1wD7aIEXgDwZ9PLtxE223Bt VakXIbUuffj4wtm2xygOf2GyDz SLEyqxOlyYwqLBU5o7WsSr16 S23mHKgnUMHkKNSfPYKfQHGdhE rqto3boM3lWq8+GT8cz6qbza77 pE34dDY+SRFbXIM9bLhdILio OFTjqE1qUGkoOyH7IWTmSaLqdW 01lTMsCJzeCj8cpNtapIxuQH4m DJQzmsjiv229RkSmp6kwBSJx tBDpOGwnKVG8V19cp9C3SYBnFK TkYNG7rYO1hL7uyJhhjhlieYUr vDvyetIlkKagPHjlUOqkT162 IHRvcDsnPlBhdGllbnQgTmFtZT x2J2OyJet0VHPcpOclIQ4rbDLf DZlnUu3wiQojuHpmRQ7rHMFp enrle801BrNlr9iaBYPggJTkMR qmJWB8Z92ru1K6ABOoCPQmJET2 hYQ1vX6lhUvydtawaZSadKrt kgSljPgpXBikKPyhU378RKAfwL yfEuGgkeWzERLveCL5UY60BI93 tZGwv6B9rEG6J0MuKSWhpzpu oiybtMU6UICtRYPfqU41Lq9xjN ezCh5gTKTjUXH0VTOzfBEtN6Dq wI1mGyMxFWNnHGDlD9KesRJk XNtiV363NVnvNfS3IGGqhaPxK1 QrAIPvfKvfWmA1f5R7Gh5GU7S4 GD43TB50lIXpv8E2iSN1T1Ye XDUivzifcnfunRP9RXYqMZXiyM 02Cd0ziSruDu5rRBBlUVT0CWGy wKSqI5QlaT5hAgDmOYUtSSOk F4OflKZbGQauH876VHefCwX5PW JrqiDtC0PaDNOaiDtyAcT4y6Y9 Wv9TQJy2MZ51SW89eQCyr1D2 lDJ5C0VcGCCgwukyshkwzPI0FS QaDPUrkW96Ft4dtJxwAm0rAMMn HUQ4YEMxnGOmB5NxoF7rXaTp KLLoPRPmS6UwbVKzCRphY852KO gbQzQ5CVMtlfBfH8BfLLXofIqo FvI1q2P9Bp3BJTWwTS75GGY2 wDV7PD57VE49G5NgCpmqqGGopI U+PHRhYmxlIHdpZHRoPScxMDAl DcMywEojRL3eLn1rRUBxXMYw sUoocECcDnKcv7vcSELeRTglGS 5uoZuwO3CztFU1HQYhb5z1Dx68 H58rG2NnqIC+UHIirWJ0wKU7 pN1lKnLuNhB7RVciQ861LuAovK BuPhyxl8xse3npqRr8TdI9MQUm mfFnuXryNTG9l3IhQi94B47p IHdpZHRoPSIxNSUiIHZhbGlnbj 3qwV2aBk1+ODRdkVX9hBA9zN9v GyXxIrM1RWifE873PvLjxOLn Vqlem0gqj9zucVy9CfTsASGqxv SsxWerTEC5m0GtFy65S8QhrNrs u7MpNid4kf83jYEep2H2lAS5 T5EsEXHbuennhCTfjHsqEQ0aIY YqverpVTPzkX9wDQOuG6k8RhBl MwS2JMjiO1WoduU9TJNbwLMf LErtHZR4E52kw7G4CLAkKUEbUZ Z0sEI6tW6lsFynhbduuIKrcQdl itQlqJwlWNslOLhdD502BKIg oIqnJMAoyX3zPNPtlEVrcCavAJ 6aEHCuhbayIgyOIy9FQwfnS6NU KV2vLQpabJB+GVZfMLF8iKtm EGpkVXNqtS0tQJJkB0s4UxMiEt N6HOclO7HgCJMvuybvLa66pW7x TiCuTuD4PWxrK5QsjeZ4ZYXk mHAdEOnvUJA4H64sz8X6DFYuFY FtVYO0cZF0hD7otXslrdenrJOu pLypkrWvsOyaMCkhWRuyF584 QGWpzCdoEcP6XnM2CcM2XBY8G6 FpMwa4PLChmMqbTQ0kuDChJMyv Ap8reLclrQxuHD3uGVKdeghi CMOirY5aVCFgdWVnyPjvSF7aLD Bcodfho524KeCzVUQ7ZNCvfYXn E0IpdD9sWuJzWPWiWXDqD7Ef nIXyOFocW135JAdbZaA4KZUxxf VgJ6QaNTTrqGvlFyZ7g0H0Mh33 NyBZZWFyczwvdGQ+PHRkIHN0 rFseKGtoSCNeiH5vKYGeU8o6Af EpMzO7QAdzN1JuGVWqyovbIi25 lI0pOaFyUqC4PYxbE8XlhqL7 NOVrrIEvWSiuPFK0V92xj2F1SF FjWYKpQXN1eLK6bM1ptBlzgqex bGVmdDsgdmVydGljYWwtYWxp M510HEFlpSacYaLMFIXWHAtxtK Q+DBDwGDJ4uEmkCFrzKBDucQ8l ATSbC2b7VkRnSkQ4ACceZ0Dc VHHogwwqCn62gQ2oEuXkNmT1ZI gtQ2KcwlM4MXGdfSDcDFdzPDK8 A04lc3G1RHEuGMKcRFQ8eCV0 wI4ilJpbjcpunFPjnNbdndSftP kxCJasZUxnC748WWAnsPxsAkoj yOY4uHIgaSdmmBI+LL30zq40 B6AmNyulKck7MPKtAJJ3iYL2uG 8qSQNwGFvpb4X6jFM9T9SfdkHk wy6ze9rmZTJkOCrcF69wyTCn w4C2DVYtrIV2XHRsgRizHgRlkP 93Oyc+OTFeyPkea0WfFzxha8ab p2ztnUu7HtKjRCDxnyDdfSjr GHX5m3QqOk36K69sFFfdHQFvJO NhFUOjLZZgxPbhdk4luM1sZb3+ GYVtgOQ2tYV5eZ7tBkIkEyG8 ICrlL519TvHgjTKbEigzt8boh9 rutBx9XqEyTVVkqdVpgBrwMKJ4 b8GeJs98P7ApaAhjg5JgHun2 sm39oXJtu0K3xCV8J6HrXWEang xpsBHylNocJV2yBVDrhfdrYZRs cF1nKNBgX9v2MdDtPlP0NIpe T3TaacT1YTRovGEjYOOymIKVzT 0xfkmyh0nueiarXzKkCCWmEDk4 FAd3VXVodYrkCqMtQUB2YbM4 BDM0qNDqmI8tzBczoaalgV0bQw c+AEj8r6rbyRJkLX8quCM6CS02 KA00hVThn1Q5kEJ7M3YqKYOn yexblblmpWN8BJPhSVNgeP04Jx 4nsLboGh5xBJReCKX6FBIovLLl C2ApcZ4hXmXdENFbTBPxX3Lb xBBlCXqjB153HNllRrP4WPHggk EyE6YfYLHdzCyeTpG6p9O1Mc1R JJ52XP78RO74zPTuh2N5kGQ7 I5EfGKDehckyodwlhXF6XGVmMB GsqR81Ds1clDgrEm2pVQCnSNI6 CPTcuVDcH4QrzN7zJzKwDGMw PMQrO7JymUArZZjcL183ZDoxJa V1UUBsxhVjB1BnQALvaQyiQcZ1 z3M3Og4RGb22XZ29WQ45sOWz c7T5qVB9E8HtOJQukyohnmmueW Q6DAKuSVFexR51Bl2erNepOa2y ZSOvCJC9QMNjuDXbM0EnqX5o KeIiCZBoECPuM1YarQJlEHgbD9 90VPscYtC1CATjvcOyA0BdSFWk dKlzIzK4x6Y3Ee8JTWcvamk5 G1XgNzzceQL+SY63TKAsNV47nC ErtRXiz6pcfBz3ZzXnYXIqFXU0 pIhnJOeku9TeOUYzV31fwMUc c2U (more content not included)... [facility] Outside Recordson 08-17-2021 Outside Records [id number]#[facility] Cons[facility] 08-15-2021 Consent Forms [id number]#1.00[facility] Pathology Sendout Teston Pathology Send Out. See Report [facility] Comment on above: Order Comment: PROCE DURE COLONOSCOPYSPECIMEN CECAL POLYP Performed By: #### 1 [id number], [id number], 75960263, [id number] #### [facility] (DEFAULT) [address] [place] [address] Provider Orderson 08-15-2021 Provider Orders [id number]#1.00[facility] Telemetry Stripson Telemetry Strips [id number]#1.00[facility] Transfer Noteon 08-15-2021 Transfer Note [id number]#1.00[facility] .Auto Diff 1on 08-14-2021 Auto [place] % 7 % Normal 1-12 [facility] Comment on above: Performed By: #### 1 [id number], 6385082, 72769286, 7272319 #### [facility] (DEFAULT) [address] [place] [address] 52953 Baso Abs# 0.0 x10 Normal 0.0-0.2 [facility] Comment on above: Performed By: #### 1 [id number], 7933095, 25299890, 7774691 #### [facility] (DEFAULT) [address] [place] [address] 58882 Basophils/100 WBC (Bld) 1.0 % Normal 0.2-2.0 [facility] Comment on above: Performed By: #### 1 [id number], 8388765, 64828610, 7141049 #### [facility] (DEFAULT) [address] [place] [address] 12645 Eos Abs# 0.1 x10 Normal 0.0-0.4 [facility] Comment on above: Performed By: #### 1 [id number], 5155078, 35162203, 9582924 #### [facility] (DEFAULT) [address] [place] [address] 50233 Eosinophils/100 WBC (Bld) 2.9 % Normal 0.9-4.0 [facility] Comment on above: Performed By: #### 1 [id number], 5223797, 09106797, 4557037 #### [facility] (DEFAULT) [address] [place] [address] 39300 Lymph Abs# 1.5 x10 Normal 1.3-2.9 [facility] Comment on above: Performed By: #### 1 [id number], 6400766, 29814430, 3496823 #### [facility] (DEFAULT) [address] [place] [address] Lymphocytes/100 WBC (Bld) 31 % Normal 14-48 [facility] Comment on above: Performed By: #### 1 [id number], 9872987, 36483788, 1595702 #### [facility] (DEFAULT) [address] [place] [address] [place] Abs# 0.4 x10 Normal 0.0-0.8 [facility] Comment on above: Performed By: #### 1 [id number], 3131247, 46392960, 5956615 #### [facility] (DEFAULT) [address] [place] [address] Neut Abs# 2.8 x10 Normal 1.5-9.2 [facility] Comment on above: Performed By: #### 1 [id number], 6619019, 31110320, 7992556 #### [facility] (DEFAULT) [address] [place] [address] Neutrophils/100 WBC (Bld) 58 % Normal 44-88 [facility] Comment on above: Performed By: #### 1 [id number], 0516466, 73297218, 2816129 #### [facility] (DEFAULT) [address] [place] [address] C. diff DNAon 08-14-2021 C. diff DNA Negative Normal Negative [facility] Comment on above: Performed By: #### 4 [id number] ####[facility] (DEFAULT)[address] [place] [address] Internal QC OK? Pass Normal [facility] Comment on above: Performed By: #### 4 [id number] ####[facility] (DEFAULT)[address] [place] [address] CBC w/ Auto Diffon Erythrocyte distribution width (RBC) [Ratio] 17.9 % High 11.5-15.0 [facility] Comment on above: Performed By: #### 1 [id number], 0152917, 53461993, 3155826 #### [facility] (DEFAULT) [address] [place] [address] 95213 Hematocrit (Bld) [Volume fraction] 27.8 % Low 33.7-40.4 [facility] Comment on above: Performed By: #### 1 [id number], 7044718, 78078841, 5908991 #### [facility] (DEFAULT) [address] [place] [address] 92931 Hemoglobin (Bld) [Mass/Vol] 8.1 g/dL Low 11.3-15.9 [facility] Comment on above: Performed By: #### 1 [id number], 6090979, 10306653, 7933464 #### [facility] (DEFAULT) [address] [place] [address] Instr WBC 4.9 x10 Invalid Interpretation Code [facility] Comment on above: Performed By: #### 1 [id number], 1867563, 44956925, 9087355 #### [facility] (DEFAULT) [address] [place] [address] 86651 Man Diff? Auto Normal [facility] Comment on above: Performed By: #### 1 [id number], 8557765, 05794879, 2095106 #### [facility] (DEFAULT) [address] [place] [address] 62870 MCH (RBC) [Entitic mass] 27 pg Normal 24-34 [facility] Comment on above: Performed By: #### 1 [id number], 9686675, 62609691, 9387000 #### [facility] (DEFAULT) [address] [place] [address] 10148 MCHC (RBC) [Mass/Vol] 29 g/dL Normal 26-37 [facility] Comment on above: Performed By: #### 1 [id number], 9507585, 89335670, 2087701 #### [facility] (DEFAULT) [address] [place] [address] 19883 MCV (RBC) [Entitic vol] 94 fL Normal 81-100 [facility] Comment on above: Performed By: #### 1 [id number], 1579268, 01409281, 2674519 #### [facility] (DEFAULT) [address] [place] [address] 37413 Platelet 280 x10 Normal 138-427 [facility] Comment on above: Performed By: #### 1 [id number], 5245939, 68150007, 7679276 #### [facility] (DEFAULT) [address] [place] [address] 11371 Platelet mean volume (Bld) [Entitic vol] 9.3 fL Normal 6.3-10.2 [facility] Comment on above: Performed By: #### 1 [id number], 1456888, 20914428, 9318302 #### [facility] (DEFAULT) [address] [place] [address] RBC 2.96 x10 Low 3.70-5.30 [facility] Comment on above: Performed By: #### 1 636753102, 7478533, 73814702, 5066369 #### [facility] (DEFAULT) [address] [place] [address] WBC 4.9 x10 Normal 3.5-10.5 [facility] Comment on above: Performed By: #### 1 [id number], 4474966, 11276655, 8688817 #### [facility] (DEFAULT) [address] [place] [address] 07398 CMP Standardon 08-14-2021 eGFR Non AA >60 Invalid Interpretation Code [facility] Comment on above: Performed By: #### 1 [id number], 5957676, 01381161, 0357173 #### [facility] (DEFAULT) [address] [place] [address] eGFR AA >60 Invalid Interpretation Code [facility] Comment on above: Result 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 Kidney Failure is indicated at less than 15 ml/min/1.73m2 Performed By: #### 1 [id number], 5746733, 53272534, 4460236 #### [facility] (DEFAULT) [address] [place] [address] 79560 Albumin [Mass/Vol] 3.0 g/dL Low 3.5-5.0 [facility] Comment on above: Performed By: #### 1 [id number], 7113192, 40969221, 5230238 #### [facility] (DEFAULT) [address] [place] [address] Albumin/Globulin [Mass ratio] 1.8 {ratio} Normal 1.4-2.6 [facility] Comment on above: Performed By: #### 1 [id number], 6980430, 22352470, 8254553 #### [facility] (DEFAULT) [address] [place] [address] Alk Phos 35 IU/L Normal 32-91 [facility] Comment on above: Performed By: #### 1 091154770, 9823702, 00802353, 9270307 #### [facility] (DEFAULT) [address] [place] [address] ALT [Catalytic activity/Vol] 16.0 U/L Normal 14.0-54.0 [facility] Comment on above: Performed By: #### 1 [id number], 7476213, 10883270, 2249097 #### [facility] (DEFAULT) [address] [place] [address] Anion gap [Moles/Vol] 12.0 mmol/L Normal 5.0-19.0 [facility] Comment on above: Performed By: #### 1 [id number], 7755876, 13476867, 2317842 #### [facility] (DEFAULT) [address] [place] [address] AST [Catalytic activity/Vol] 24 U/L Normal 15-41 [facility] Comment on above: Performed By: #### 1 [id number], 9380380, 43424583, 6749726 #### [facility] (DEFAULT) [address] [place] [address] Bili Total 0.5 mg/dL Normal 0.3-1.2 [facility] Comment on above: Performed By: #### 1 [id number], 4072047, 48503846, 3331000 #### [facility] (DEFAULT) [address] [place] [address] 84696 Calcium [Mass/Vol] 7.4 mg/dL Low 8.9-10.3 [facility] Comment on above: Performed By: #### 1 506017397, 2121199, 42249406, 1930984 #### [facility] (DEFAULT) [address] [place] [address] 47262 Chloride [Moles/Vol] 108 mmol/L Normal 101-111 [facility] Comment on above: Performed By: #### 1 005496371, 0230778, 11058871, 8128639 #### [facility] (DEFAULT) [address] [place] [address] 00892 CO2 [Moles/Vol] 26 mmol/L Normal 21-32 [facility] Comment on above: Performed By: #### 1 [id number], 0734487, 85204495, 1003909 #### [facility] (DEFAULT) [address] [place] [address] 29782 Creatinine [Mass/Vol] 0.68 mg/dL Normal 0.60-1.30 [facility] Comment on above: Performed By: #### 1 404352905, 7863689, 13648498, 2484797 #### [facility] (DEFAULT) [address] [place] [address] 90406 Globulin (S) [Mass/Vol] 1.7 g/dL Normal 1.5-4.3 [facility] Comment on above: Performed By: #### 1 [id number], 6497607, 19925636, 7014362 #### [facility] (DEFAULT) [address] [place] [address] 76718 Glucose [Mass/Vol] 80.0 mg/dL Normal 74.0-118.0 [facility] Comment on above: Performed By: #### 1 [id number], 1794158, 09100328, 2473391 #### [facility] (DEFAULT) [address] [place] [address] 67615 Osmolality 279 mOsm/L Invalid Interpretation Code [facility] Comment on above: Performed By: #### 1 [id number], 5618463, 27007267, 7321750 #### [facility] (DEFAULT) [address] [place] [address] 91787 Potassium [Moles/Vol] 5.5 mmol/L High 3.6-5.1 [facility] Comment on above: Performed By: #### 1 [id number], 0652801, 33129688, 1816496 #### [facility] (DEFAULT) [address] [place] [address] 00302 Protein [Mass/Vol] 4.7 g/dL Low 6.5-8.1 [facility] Comment on above: Performed By: #### 1 [id number], 8958430, 59090236, 1513076 #### [facility] (DEFAULT) [address] [place] [address] 34720 Sodium [Moles/Vol] 140.0 mmol/L Normal 136.0-144.0 [facility] Comment on above: Performed By: #### 1 [id number], 4785382, 24537463, 1350490 #### [facility] (DEFAULT) [address] [place] [address] 70641 Urea nitrogen [Mass/Vol] 14 mg/dL Normal 8-26 [facility] Comment on above: Performed By: #### 1 [id number], 6304938, 13295258, 7529031 #### [facility] (DEFAULT) [address] [place] [address] 55673 Urea nitrogen/Creatinin e [Mass ratio] 21.0 mg/mg High 4.6-16.2 [facility] Comment on above: Performed By: #### 1 [id number], 8702708, 68923165, 3210692 #### [facility] (DEFAULT) [address] [place] [address] 53873 Inpatient Patient Summaryon 08-14-2021 Inpatient Patient Summary [address] [address] Patient Discharge Instructions Name: ASHVIN RENE : 1955 Patient Address: [address] [place] [address] Primary Care Provider: Name: RUSS CHRISTOPHER TUSHAR After you are discharged if you find you have any questions, please, call [phone] to speak to a nurse. [...] and/or drug addiction problems; contact the [facility] 03/02 Crisis Hotline -Text 4HOPE to [phone]. If you received any narcotics, sedation, or [...] business decisions or sign any legal documents [facility] would like to thank you for allowing us to assist you with your healthcare needs. The following includes patient education materials and information regarding your injury/illness. ASHVIN RENE has been given the following list of follow-up instructions, prescriptions, and patient education materials: Follow-up Instructions With: Address: When: TUSHAR SOLANO JR. [address] [place] [address] Business (1) 08/21/2021 2:45 PM Medications During the course of your visit, your medication list was updated with the most current information. The details of those changes are reflected below: New Medications [facility], [address] [place] [address] [id number], [phone] ferrous sulfate (ferrous sulfate 325 mg (65 [...] IN MORNING MEAL, HOLD IF STANDING BP [id number]. Medications to Continue That Have Not Changed [...] mg oral tablet) potassium chloride (Potassium Chloride (Dlj-Onlk-Prn 10) 10 mEq oral tablet, extended release) [...] 250 mg oral (more content not included)... [facility] - AP Result[facility] Lab - AP Results [id number]#1.00OTGTIFF [facility] Pharmacy Noteon 08-14-2021 Pharmacy Note I have personally re viewed the patient's medication list upon discharge including, prescription medications, OTC products, vitamins and supplements. Below are the following medications the patient is discharged on. New Medications [facility], [address] [place] [address] [id number], [phone] ferrous sulfate (ferrous sulfate 325 mg (65 mg elemental iron) oral tablet) 1 tab(s) Oral 2 times a day for 30 Days. Refills: 1. torsemide (torsemide 20 mg oral tablet) 1 tab(s) Oral every other day for 30 Days. [facility]. Refills: 1. Medications That Were Updated - Follow Below Instructions Other Medications Updated: fludrocortisone (fludrocortisone 0.1 mg oral tablet) 0.5 tab(s) Oral every day. TAKE IN MORNING MEAL, HOLD IF STANDING BP [id number]. Updated: midodrine (midodrine 10 mg oral tablet) [...] Oral every day. potassium chloride (Potassium Chloride (Sab-Lkpt-Ysy 10) 10 mEq oral tablet, extended release) 1 tab(s) Oral 3 times a day. vancomycin (Firvanq 25 mg/mL oral liquid) 5 Milliliter Oral 4 times a day. [Electronically Signed on: 08/14/2021 15:17 EST] Nadia Devi [Verified on: 08/14/2021 15:17 EST] Nadia Devi Normal [facility] .Auto Diff 1on 08-13-2021 Auto [place] % 6 % Normal 12 [facility] Comment on above: Performed By: #### 1 [id number], [id number], [id number], [id number] #### [facility] (DEFAULT) [address] [place] [address]297 Baso Abs# 0.0 x10 Normal 0.0-0.2 [facility] Comment on above: Performed By: #### 1 [id number], 7985327, 93537133, 8288136 #### [facility] (DEFAULT) [address] [place] [address] 63690 Basophils/100 WBC (Bld) 0.5 % Normal 0.2-2.0 [facility] Comment on above: Performed By: #### 1 [id number], 1610253, 36337768, 5791181 #### [facility] (DEFAULT) [address] [place] [address] 50616 Eos Abs# 0.1 x10 Normal 0.0-0.4 [facility] Comment on above: Performed By: #### 1 [id number], 3185074, 23945801, [id number] #### [facility] (DEFAULT) [address] [place] [address] 98041 Eosinophils/100 WBC (Bld) 1.7 % Normal 0.9-4.0 [facility] Comment on above: Performed By: #### 1 [id number], 4922396, 42855346, 2614013 #### [facility] (DEFAULT) [address] [place] [address] 63207 Lymph Abs# 1.4 x10 Normal 1.3-2.9 [facility] Comment on above: Performed By: #### 1 [id number], 7392225, 53526558, 6850650 #### [facility] (DEFAULT) [address] [place] [address] 43127 Lymphocytes/100 WBC (Bld) 21 % Normal 14-48 [facility] Comment on above: Performed By: #### 1 [id number], 5176699, 50973917, 7268587 #### [facility] (DEFAULT) [address] [place] [address] 19547 [place] Abs# 0.4 x10 Normal 0.0-0.8 [facility] Comment on above: Performed By: #### 1 [id number], 0577253, 57619145, 9608205 #### [facility] (DEFAULT) [address] [place] [address] 46519 Neut Abs# 4.5 x10 Normal 1.5-9.2 [facility] Comment on above: Performed By: #### 1 [id number], 2781226, 44870474, 1345171 #### [facility] (DEFAULT) [address] [place] [address] Neutrophils/100 WBC (Bld) 71 % Normal 44-88 [facility] Comment on above: Performed By: #### 1 [id number], 1142457, 35924232, 1691613 #### [facility] (DEFAULT) [address] [place] [address] ABORhon 08-13-2021 ABO and Rh group Nom (Bld) Placed by Discern Expert due to BBPR being ordered. Hx Check: Found Anti-A: 0 Anti-B: 0 Anti-D: 4+ DCon: NT A1: 4+ B: 4+ ABORh Interp: O POS Invalid Interpretation Code [facility] Comment on above: Performed By: #### 1 [id number], 1058954, 57938208, 2438073 #### [facility] (DEFAULT) [address] [place] [address] ABSC Gelon 08-13-2021 ABSC Gel Placed by Discern Ex pert due to BBPR being ordered. SC1 Gel: 0 SC2 Gel: 0 SC3 Gel: 0 ABSC Gel Interp: Negative Normal [facility] Comment on above: Performed By: #### 1 [id number], 3568548, 64157986, 0102227 #### [facility] (DEFAULT) [address] [place] [address] BMP Standardon 08-13-2021 Anion gap [Moles/Vol] 13.0 mmol/L Normal 5.0-19.0 [facility] Comment on above: Performed By: #### 1 [id number], 1228541, 99561234, 5011337 #### [facility] (DEFAULT) [address] [place] [address] 24414 Calcium [Mass/Vol] 6.8 mg/dL Low 8.9-10.3 [facility] Comment on above: Performed By: #### 1 [id number], 0297075, 21269888, 0113068 #### [facility] (DEFAULT) [address] [place] [address] 51539 Chloride [Moles/Vol] 106 mmol/L Normal 101-111 [facility] Comment on above: Performed By: #### 1 [id number], 9912336, 89774149, 3202521 #### [facility] (DEFAULT) [address] [place] [address] 27915 CO2 [Moles/Vol] 24 mmol/L Normal 21-32 [facility] Comment on above: Performed By: #### 1 [id number], 6217155, 30315982, 6216990 #### [facility] (DEFAULT) [address] [place] [address] 37039 Creatinine [Mass/Vol] 0.65 mg/dL Normal 0.60-1.30 [facility] Comment on above: Performed By: #### 1 [id number], 2822723, 08390598, 8024954 #### [facility] (DEFAULT) [address] [place] [address] 48797 Glucose [Mass/Vol] 108.0 mg/dL Normal 74.0-118.0 [facility] Comment on above: Performed By: #### 1 [id number], 5828831, 80474418, 4185653 #### [facility] (DEFAULT) [address] [place] [address] 63637 Osmolality 275 mOsm/L Invalid Interpretation Code [facility] Comment on above: Performed By: #### 1 [id number], 4737187, 34799165, 8120270 #### [facility] (DEFAULT) [address] [place] [address] 12511 Potassium [Moles/Vol] 5.0 mmol/L Normal 3.6-5.1 [facility] Comment on above: Result Comment: Pota ssium medication/therapy Performed By: #### 1 [id number], 8204352, 62843375, 6705168 #### [facility] (DEFAULT) [address] [place] [address] Sodium [Moles/Vol] 138.0 mmol/L Normal 136.0-144.0 [facility] Comment on above: Performed By: #### 1 [id number], 4356827, 74187077, 2776634 #### [facility] (DEFAULT) [address] [place] [address] Urea nitrogen [Mass/Vol] 10 mg/dL Normal 8-26 [facility] Comment on above: Performed By: #### 1 [id number], 3242597, 38177061, 3561585 #### [facility] (DEFAULT) [address] [place] [address] Urea nitrogen/Creatinin e [Mass ratio] 15.0 mg/mg Normal 4.6-16.2 [facility] Comment on above: Performed By: #### 1 [id number], 1197218, 94660991, 7212235 #### [facility] (DEFAULT) [address] [place] [address] eGFR Non AA >60 Invalid Interpretation Code [facility] Comment on above: Performed By: #### 1 [id number], 4093739, 08073178, 1113751 #### [facility] (DEFAULT) [address] [place] [address] eGFR AA >60 Invalid Interpretation Code [facility] Comment on above: Result 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 Kidney Failure is indicated at less than 15 ml/min/1.73m2 Performed By: #### 1 [id number], 7656853, 42632914, 6109721 #### [facility] (DEFAULT) [address] [place] [address] CBC w/ Auto Diffon 2 Erythrocyte distribution width (RBC) [Ratio] 17.8 % High 11.5-15.0 [facility] Comment on above: Performed By: #### 1 198637311, 6388267, 09140996, 1434679 #### [facility] (DEFAULT) [address] [place] [address] 60832 Hematocrit (Bld) [Volume fraction] 26.7 % Low 33.7-40.4 [facility] Comment on above: Performed By: #### 1 [id number], 3000352, 26790200, 5860977 #### [facility] (DEFAULT) [address] [place] [address] 93000 Hemoglobin (Bld) [Mass/Vol] 7.8 g/dL Low 11.3-15.9 [facility] Comment on above: Performed By: #### 1 [id number], 2413817, 09717326, 4531693 #### [facility] (DEFAULT) [address] [place] [address] Instr WBC 6.4 x10 Invalid Interpretation Code [facility] Comment on above: Performed By: #### 1 [id number], 7029668, 50148491, 0152951 #### [facility] (DEFAULT) [address] [place] [address] 16833 Man Diff? Auto Normal [facility] Comment on above: Performed By: #### 1 [id number], 6614650, 34385262, 0634560 #### [facility] (DEFAULT) [address] [place] [address] 48461 MCH (RBC) [Entitic mass] 27 pg Normal 24-34 [facility] Comment on above: Performed By: #### 1 979669082, 8538154, 73620010, 2509872 #### [facility] (DEFAULT) [address] [place] [address] 52781 MCHC (RBC) [Mass/Vol] 29 g/dL Normal 26-37 [facility] Comment on above: Performed By: #### 1 [id number], 8603671, 03068877, 9999117 #### [facility] (DEFAULT) [address] [place] [address] 31925 MCV (RBC) [Entitic vol] 94 fL Normal 81-100 [facility] Comment on above: Performed By: #### 1 167975140, 0635920, 74391538, 3699216 #### [facility] (DEFAULT) [address] [place] [address] Platelet 309 x10 Normal 138-427 [facility] Comment on above: Performed By: #### 1 517693562, 7782558, 45093715, 6057801 #### [facility] (DEFAULT) [address] [place] [address] Platelet mean volume (Bld) [Entitic vol] 9.2 fL Normal 6.3-10.2 [facility] Comment on above: Performed By: #### 1 709032904, 6718728, 88682397, 3861179 #### [facility] (DEFAULT) [address] [place] [address] RBC 2.85 x10 Low 3.70-5.30 [facility] Comment on above: Performed By: #### 1 665948275, 2154211, 63950320, 1727653 #### [facility] (DEFAULT) [address] [place] [address] WBC 6.4 x10 Normal 3.5-10.5 [facility] Comment on above: Performed By: #### 1 362240429, 9917964, 01735095, 8410956 #### [facility] (DEFAULT) [address] [place] [address] H&Hon 08-13-2021 Hematocrit (Bld) [Volume fraction] 29.9 % Low 33.7-40.4 [facility] Comment on above: Performed By: #### 1 697508808, 6576102, 37055511, 5469600 #### [facility] (DEFAULT) [address] [place] [address] Hemoglobin (Bld) [Mass/Vol] 8.7 g/dL Low 11.3-15.9 [facility] Comment on above: Performed By: #### 1 194847381, 8159993, 15950827, 1063581 #### [facility] (DEFAULT) [address] [place] [address] Magnesiumon 08-13-2021 Magnesium [Mass/Vol] 2.07 mg/dL Normal 1.80-2.50 [facility] Comment on above: Performed By: #### 1 571155016, 7806559, 52751515, 5844171 #### [facility] (DEFAULT) [address] [place] [address] 72807 Nutrition Noteon 08-13-2021 Nutrition Note 08/12 wt [...] Pt to be discharged back to [facility]. If discharge plans change, will re-add supplements. Will request re-weight in am. [facility] RBC.on 08-13-2021 RBC. # of Units: 1 RBC Indication: Symptom Anemia Additional Units?: No Date Needed: 08/13/2021 Red Cell Status: RBC Ready [facility] Comment on above: Performed By: #### 1 [id number], 9618118, 19233187, 5568219 #### [facility] (DEFAULT) [address] [place], [place] [address] Telemetry Stripson 2 Telemetry Strips [id number] [facility] .Auto Diff 1on 08-12-2021 Auto [place] % 8 % Normal 07-25 [facility] Comment on above: Performed By: #### 7 551520, 87254725, 3786656, 9549772025 #### [facility] (DEFAULT) [address] [place] [address] 93074 Baso Abs# 0.0 x10 Normal 0.0-0.2 [facility] Comment on above: Performed By: #### 7 594552, 40618833, 2262076, 7733268476 #### [facility] (DEFAULT) [address] [place] [address] 07288 Basophils/100 WBC (Bld) 0.7 % Normal 0.2-2.0 [facility] Comment on above: Performed By: #### 7 108544, 79913548, 6751885, 8505747620 #### [facility] (DEFAULT) [address] [place] [address] 26047 Eos Abs# 0.1 x10 Normal 0.0-0.4 [facility] Comment on above: Performed By: #### 7 542592, 58087989, 1596783, 6582476051 #### [facility] (DEFAULT) [address] [place] [address] 33511 Eosinophils/100 WBC (Bld) 1.8 % Normal 0.9-4.0 [facility] Comment on above: Performed By: #### 7 797847, 79580071, 0125338, 7896028792 #### [facility] (DEFAULT) [address] [place] [address] 92326 Lymph Abs# 1.6 x10 Normal 1.3-2.9 [facility] Comment on above: Performed By: #### 7 021401, 02844741, 1771631, 1022453739 #### [facility] (DEFAULT) [address] [place] [address] 99976 Lymphocytes/100 WBC (Bld) 30 % Normal 14-48 [facility] Comment on above: Performed By: #### 7 756656, 80103923, 1765853, 3255246517 #### [facility] (DEFAULT) [address] [place] [address] 98344 [place] Abs# 0.4 x10 Normal 0.0-0.8 [facility] Comment on above: Performed By: #### 7 343653, 03658202, 9484594, 7766352726 #### [facility] (DEFAULT) [address] [place] [address] 46293 Neut Abs# 3.2 x10 Normal 1.5-9.2 [facility] Comment on above: Performed By: #### 7 805792, 20898668, 8781492, 8591512572 #### [facility] (DEFAULT) [address] [place] [address] 04731 Neutrophils/100 WBC (Bld) 60 % Normal 44-88 [facility] Comment on above: Performed By: #### 7 205571, 21510091, 1977713, 1291192658 #### [facility] (DEFAULT) [address] [place] [address] CBC w/ Auto Diffon 2 Erythrocyte distribution width (RBC) [Ratio] 17.9 % High 11.5-15.0 [facility] Comment on above: Performed By: #### 7 941306, 97421167, 7158077, 7892807191 #### [facility] (DEFAULT) [address] [place] [address] Hematocrit (Bld) [Volume fraction] 28.6 % Low 33.7-40.4 [facility] Comment on above: Performed By: #### 7 070634, 61900677, 6161095, 1961366776 #### [facility] (DEFAULT) [address] [place] [address] Hemoglobin (Bld) [Mass/Vol] 8.5 g/dL Low 11.3-15.9 [facility] Comment on above: Performed By: #### 7 277828, 94177826, 7866270, 1656924656 #### [facility] (DEFAULT) [address] [place] [address] Instr WBC 5.4 x10 Invalid Interpretation Code [facility] Comment on above: Performed By: #### 7 901439, 66917946, 2030701, 3960005889 #### [facility] (DEFAULT) [address] [place] [address] Man Diff? Auto Normal [facility] Comment on above: Performed By: #### 7 767217, 40725772, 4785924, 1218935589 #### [facility] (DEFAULT) [address] [place] [address] MCH (RBC) [Entitic mass] 28 pg Normal 24-34 [facility] Comment on above: Performed By: #### 7 117965, 99326095, 6062406, 1729834108 #### [facility] (DEFAULT) [address] [place] [address] MCHC (RBC) [Mass/Vol] 30 g/dL Normal 26-37 [facility] Comment on above: Performed By: #### 7 399645, 53886818, 4652055, 4521491846 #### [facility] (DEFAULT) [address] [place] [address] MCV (RBC) [Entitic vol] 94 fL Normal 81-100 [facility] Comment on above: Performed By: #### 7 764557, 35412666, 8605308, 1354233904 #### [facility] (DEFAULT) [address] [place] [address] Platelet 305 x10 Normal 138-427 [facility] Comment on above: Performed By: #### 7 750652, 32497311, 6142161, 7739129604 #### [facility] (DEFAULT) [address] [place] [address] Platelet mean volume (Bld) [Entitic vol] 9.8 fL Normal 6.3-10.2 [facility] Comment on above: Performed By: #### 7 253248, 26988297, 3932422, 0956293397 #### [facility] (DEFAULT) [address] [place] [address] RBC 3.03 x10 Low 3.70-5.30 [facility] Comment on above: Performed By: #### 7 290984, 86872381, 4996807, 4105096141 #### [facility] (DEFAULT) [address] [place] [address] WBC 5.4 x10 Normal 3.5-10.5 [facility] Comment on above: Performed By: #### 7 834781, 07875359, 2513904, 0180133895 #### [facility] (DEFAULT) [address] [place] [address] CMP Standardon 08-12-2021 Albumin [Mass/Vol] 3.3 g/dL Low 3.5-5.0 [facility] Comment on above: Performed By: #### 7 585297, 60706708, 5029905, 5070432377 ####[facility] (DEFAULT)[address] [place] [address] Albumin/Globulin [Mass ratio] 2.4 {ratio} Normal 1.4-2.6 [facility] Comment on above: Performed By: #### 7 860756, 27248403, 9692686, 0898306667 ####[facility] (DEFAULT)[address] [place] [address] Alk Phos 28 IU/L Low 32-91 [facility] Comment on above: Performed By: #### 7 142815, 58518819, 5278149, 4551132610 ####[facility] (DEFAULT)[address] [place] [address] ALT [Catalytic activity/Vol] 14.0 U/L Normal 14.0-54.0 [facility] Comment on above: Performed By: #### 7 298752, 91760325, 1784100, 1037345090 ####[facility] (DEFAULT)[address] [place] [address] Anion gap [Moles/Vol] 15.0 mmol/L Normal 5.0-19.0 [facility] Comment on above: Performed By: #### 7 119024, 33721614, 8579078, 6093281457 ####[facility] (DEFAULT)[address] [place] [address] AST [Catalytic activity/Vol] 27 U/L Normal 15-41 [facility] Comment on above: Performed By: #### 7 805364, 69140989, 7565000, 9799771387 ####[facility] (DEFAULT)[address] [place] [address] 24038 Bili Total 0.5 mg/dL Normal 0.3-1.2 [facility] Comment on above: Performed By: #### 7 224095, 37863762, 6691721, 5639601005 ####[facility] (DEFAULT)[address] [place] [address] Calcium [Mass/Vol] 6.7 mg/dL Low 8.9-10.3 [facility] Comment on above: Performed By: #### 7 167462, 25723975, 1055080, 3070818157 ####[facility] (DEFAULT)[address] [place] [address] 92604 Chloride [Moles/Vol] 103 mmol/L Normal 101-111 [facility] Comment on above: Performed By: #### 7 380834, 06534706, 4294516, 5829572371 ####[facility] (DEFAULT)[address] [place] [address] 62649 CO2 [Moles/Vol] 27 mmol/L Normal 21-32 [facility] Comment on above: Performed By: #### 7 875247, 33351696, 9463404, 3107088249 ####[facility] (DEFAULT)[address] [place] [address] 05214 Creatinine [Mass/Vol] 0.68 mg/dL Normal 0.60-1.30 [facility] Comment on above: Performed By: #### 7 920870, 41958042, 5476078, 1758809523 ####[facility] (DEFAULT)[address] [place] [address] 02817 Globulin (S) [Mass/Vol] 1.4 g/dL Low 1.5-4.3 [facility] Comment on above: Performed By: #### 7 159164, 19255038, 6081834, 7146523517 ####[facility] (DEFAULT)[address] [place] [address] 68334 Glucose [Mass/Vol] 76.0 mg/dL Normal 74.0-118.0 [facility] Comment on above: Performed By: #### 7 226244, 86131107, 6826908, 4705642040 ####[facility] (DEFAULT)[address] [place] [address] 86884 Osmolality 278 mOsm/L Invalid Interpretation Code [facility] Comment on above: Performed By: #### 7 293138, 32177121, 3910363, 3940686510 ####[facility] (DEFAULT)[address] [place] [address] 98459 Potassium [Moles/Vol] 4.3 mmol/L Normal 3.6-5.1 [facility] Comment on above: Result Comment: IV T herapy Performed By: #### 7 521879, 23262262, 5359850, 4099157121 ####[facility] (DEFAULT)[address] [place] [address] 90826 Protein [Mass/Vol] 4.7 g/dL Low 6.5-8.1 [facility] Comment on above: Performed By: #### 7 486567, 71967464, 2247700, 5525013085 ####[facility] (DEFAULT)[address] [place] [address] 59932 Sodium [Moles/Vol] 141.0 mmol/L Normal 136.0-144.0 [facility] Comment on above: Performed By: #### 7 326232, 13963292, 8270200, 6210947377 ####[facility] (DEFAULT)[address] [place] [address] Urea nitrogen [Mass/Vol] 8 mg/dL Normal 8-26 [facility] Comment on above: Performed By: #### 7 711360, 08534089, 7882677, 4271737589 ####[facility] (DEFAULT)[address] [place] [address] 59146 Urea nitrogen/Creatinin e [Mass ratio] 12.0 mg/mg Normal 4.6-16.2 [facility] Comment on above: Performed By: #### 7 441907, 06701389, 0982423, 8321279592 ####[facility] (DEFAULT)[address] [place] [address] 18023 eGFR Non AA >60 Invalid Interpretation Code [facility] Comment on above: Performed By: #### 7 222069, 36263954, 8060147, 8935979533 ####[facility] (DEFAULT)[address] [place] [address] 77300 eGFR AA >60 Invalid Interpretation Code [facility] Comment on above: Result 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 Kidney Failure is indicated at less than 15 ml/min/1.73m2 Performed By: #### 7 380791, 22835874, 6591277, 0774245451 ####[facility] (DEFAULT)[address] [place] [address] Magnesiumon 08-12-2021 Magnesium [Mass/Vol] 1.21 mg/dL Low 1.80-2.50 [facility] Comment on above: Performed By: #### 7 490492, 90932828, 4509294, 8900319233 #### [facility] (DEFAULT) [address] [place] [address] .Auto Diff 1on 08-11-2021 Auto [place] % 8 % Normal 1-12 [facility] Comment on above: Performed By: #### 2 854914, 4709394788, 1734558, 47974274 ####[facility] (DEFAULT)[address] [place] [address] Baso Abs# 0.0 x10 Normal 0.0-0.2 [facility] Comment on above: Performed By: #### 2 883440, 4120048282, 4365052, 43146853 ####[facility] (DEFAULT)[address] [place] [address] Basophils/100 WBC (Bld) 0.6 % Normal 0.2-2.0 [facility] Comment on above: Performed By: #### 2 126425, 2234620606, 0012360, 27450882 ####[facility] (DEFAULT)[address] [place] [address] Eos Abs# 0.2 x10 Normal 0.0-0.4 [facility] Comment on above: Performed By: #### 2 238611, 3151404376, 3754597, 61347963 ####[facility] (DEFAULT)[address] [place] [address] Eosinophils/100 WBC (Bld) 3.1 % Normal 0.9-4.0 [facility] Comment on above: Performed By: #### 2 974691, 2460952416, 8182409, 24656670 ####[facility] (DEFAULT)[address] [place] [address] Lymph Abs# 1.4 x10 Normal 1.3-2.9 [facility] Comment on above: Performed By: #### 2 327959, 2001000065, 8702799, 79093394 ####[facility] (DEFAULT)[address] [place] [address] Lymphocytes/100 WBC (Bld) 28 % Normal 14-48 [facility] Comment on above: Performed By: #### 2 742911, 3861665034, 0069235, 56472991 ####[facility] (DEFAULT)[address] [place] [address] [place] Abs# 0.4 x10 Normal 0.0-0.8 [facility] Comment on above: Performed By: #### 2 784754, 1804808557, 6961747, 20422089 ####[facility] (DEFAULT)[address] [place] [address] Neut Abs# 3.2 x10 Normal 1.5-9.2 [facility] Comment on above: Performed By: #### 2 043211, 7629946601, 7127490, 00164657 ####[facility] (DEFAULT)[address] [place] [address] Neutrophils/100 WBC (Bld) 61 % Normal 44-88 [facility] Comment on above: Performed By: #### 2 258351, 3075064338, 6816593, 45192862 ####[facility] (DEFAULT)[address] [place] [address] Standardon 08-11-2021 eGFR Non AA >60 Invalid Interpretation Code [facility] Comment on above: Performed By: #### 2 931724, 5154624059, 3888897, 10127689 ####[facility] (DEFAULT)[address] [place] [address] eGFR AA >60 Invalid Interpretation Code [facility] Comment on above: Result 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 Kidney Failure is indicated at less than 15 ml/min/1.73m2 Performed By: #### 2 541298, 9207867178, 5129139, 90339201 ####[facility] (DEFAULT)[address] [place] [address] 51693 Anion gap [Moles/Vol] 17.0 mmol/L Normal 5.0-19.0 [facility] Comment on above: Performed By: #### 2 314166, 8126061117, 2462223, 81493229 ####[facility] (DEFAULT)[address] [place] [address] 38889 Calcium [Mass/Vol] 6.7 mg/dL Low 8.9-10.3 [facility] Comment on above: Performed By: #### 2 678886, 4547145007, 0397360, 33887224 ####[facility] (DEFAULT)[address] [place] [address] 21188 Chloride [Moles/Vol] 104 mmol/L Normal 101-111 [facility] Comment on above: Performed By: #### 2 739758, 3255763402, 2261271, 44461469 ####[facility] (DEFAULT)[address] [place] [address] 01201 CO2 [Moles/Vol] 24 mmol/L Normal 21-32 [facility] Comment on above: Performed By: #### 2 159644, 8129195284, 4522682, 11608920 ####[facility] (DEFAULT)[address] [place] [address] 91300 Creatinine [Mass/Vol] 0.57 mg/dL Low 0.60-1.30 [facility] Comment on above: Performed By: #### 2 200886, 8836421503, 6548228, 65959841 ####[facility] (DEFAULT)[address] [place] [address] 62153 Glucose [Mass/Vol] 81.0 mg/dL Normal 74.0-118.0 [facility] Comment on above: Performed By: #### 2 591952, 6202621137, 2481683, 17270337 ####[facility] (DEFAULT)[address] [place] [address] 84035 Osmolality 278 mOsm/L Invalid Interpretation Code [facility] Comment on above: Performed By: #### 2 293095, 5755416246, 5717006, 99000433 ####[facility] (DEFAULT)[address] [place] [address] 32125 Potassium [Moles/Vol] 3.6 mmol/L Normal 3.6-5.1 [facility] Comment on above: Performed By: #### 2 556463, 4240099446, 7925304, 23631920 ####[facility] (DEFAULT)[address] [place] [address] 77303 Sodium [Moles/Vol] 141.0 mmol/L Normal 136.0-144.0 [facility] Comment on above: Performed By: #### 2 948582, 1079785086, 0015644, 10984059 ####[facility] (DEFAULT)[address] [place] [address] Urea nitrogen [Mass/Vol] 6 mg/dL Low 8-26 [facility] Comment on above: Performed By: #### 2 317432, 7936774209, 4216853, 13186458 ####[facility] (DEFAULT)[address] [place] [address] Urea nitrogen/Creatinin e [Mass ratio] 11.0 mg/mg Normal 4.6-16.2 [facility] Comment on above: Performed By: #### 2 620347, 5264988463, 2722823, 52262723 ####[facility] (DEFAULT)[address] [place] [address] 85962 CBC w/ Auto Diffon 2 Erythrocyte distribution width (RBC) [Ratio] 17.9 % High 11.5-15.0 [facility] Comment on above: Performed By: #### 2 516564, 7294860745, 6218718, 05841846 ####[facility] (DEFAULT)[address] [place] [address] Hematocrit (Bld) [Volume fraction] 26.2 % Low 33.7-40.4 [facility] Comment on above: Performed By: #### 2 422940, 2452038914, 1742624, 94005981 ####[facility] (DEFAULT)[address] [place], [place] [address] Hemoglobin (Bld) [Mass/Vol] 7.8 g/dL Low 11.3-15.9 [facility] Comment on above: Performed By: #### 2 041116, 7065860132, 9852194, 98072909 ####[facility] (DEFAULT)[address] [place] [address] Instr WBC 5.2 x10 Invalid Interpretation Code [facility] Comment on above: Performed By: #### 2 751703, 2914575824, 1137300, 59588800 ####[facility] (DEFAULT)[address] [place] [address] Man Diff? Auto Normal [facility] Comment on above: Performed By: #### 2 421442, 0604471243, 4047440, 46262615 ####[facility] (DEFAULT)[address] [place] [address] 59625 MCH (RBC) [Entitic mass] 28 pg Normal 24-34 [facility] Comment on above: Performed By: #### 2 316933, 0936706097, 9611142, 57598548 ####[facility] (DEFAULT)[address] [place] [address] MCHC (RBC) [Mass/Vol] 30 g/dL Normal 26-37 [facility] Comment on above: Performed By: #### 2 235482, 0157457518, 9939361, 14219272 ####[facility] (DEFAULT)[address] [place] [address] 86057 MCV (RBC) [Entitic vol] 93 fL Normal 81-100 [facility] Comment on above: Performed By: #### 2 439079, 3581580490, 7048279, 44669256 ####[facility] (DEFAULT)[address] [place] [address] 01211 Platelet 291 x10 Normal 138-427 [facility] Comment on above: Performed By: #### 2 366407, 7671056165, 5120564, 10651815 ####[facility] (DEFAULT)[address] [place] [address] 01191 Platelet mean volume (Bld) [Entitic vol] 9.6 fL Normal 6.3-10.2 [facility] Comment on above: Performed By: #### 2 758193, 2663030825, 4095978, 28982646 ####[facility] (DEFAULT)[address] [place] [address] RBC 2.82 x10 Low 3.70-5.30 [facility] Comment on above: Performed By: #### 2 476553, 4701263696, 6265254, 29488516 ####[facility] (DEFAULT)[address] [place] [address] WBC 5.2 x10 Normal 3.5-10.5 [facility] Comment on above: Performed By: #### 2 282215, 1073439255, 9237746, 52817831 ####[facility] (DEFAULT)[address] [place] [address] Magnesiumon 08-11-2021 Magnesium [Mass/Vol] 1.43 mg/dL Low 1.80-2.50 [facility] Comment on above: Performed By: #### 2 936412, 7005249203, 7640733, 91331351 ####[facility] (DEFAULT)[address] [place] [address] PTH, Intact LCon 08-11-2021 PTH, Intact LC 125 pg/mL High 15-65 [facility] Comment on above: Result Comment: Perf ormed At: [facility] [address] [id number] Brenna Iyer PhD Ph:[phone] Performed By: #### 2 929252905, 48332125 ####[facility] (DEFAULT)[address] [place] [address] .Auto Diff 1on 08-10-2021 Auto [place] % 8 % Normal 1-12 [facility] Comment on above: Performed By: #### 1 630726691, 2640591003, 0659637, 82780912, 7556542, 3399420172 ####[facility] (DEFAULT)[address] [place] [address] Baso Abs# 0.0 x10 Normal 0.0-0.2 [facility] Comment on above: Performed By: #### 1 253528373, 9028586528, 8968518, 40724013, 8979138, 1759706773 ####[facility] (DEFAULT)[address] [place] [address] 45520 Basophils/100 WBC (Bld) 0.8 % Normal 0.2-2.0 [facility] Comment on above: Performed By: #### 1 036144993, 7016604818, 0304839, 18090183, 7193452, 4598752971 ####[facility] (DEFAULT)[address] [place] [address] 24122 Eos Abs# 0.2 x10 Normal 0.0-0.4 [facility] Comment on above: Performed By: #### 1 137142372, 3818593008, 0398429, 29553853, 5368605, 0050267617 ####[facility] (DEFAULT)[address] [place] [address] 66999 Eosinophils/100 WBC (Bld) 3.3 % Normal 0.9-4.0 [facility] Comment on above: Performed By: #### 1 770769121, 3505945152, 8771807, 70535673, 4288132, 0281964675 ####[facility] (DEFAULT)[address] [place] [address] 59151 Lymph Abs# 1.2 x10 Low 1.3-2.9 [facility] Comment on above: Performed By: #### 1 [id number], [id number], [id number], [id number], [id number], [id number] ####[facility] (DEFAULT)[address] [place] [address]174 Lymphocytes/100 WBC (Bld) 24 % Normal 14-48 [facility] Comment on above: Performed By: #### 1 [id number], [id number], [id number], [id number], [id number], [id number] ####[facility] (DEFAULT)[address] [place] [address] [place] Abs# 0.4 x10 Normal 0.0-0.8 [facility] Comment on above: Performed By: #### 1 [id number], [id number], [id number], [id number], [id number], [id number] ####[facility] (DEFAULT)[address] [place] [address] Neut Abs# 3.1 x10 Normal 1.5-9.2 [facility] Comment on above: Performed By: #### 1 [id number], [id number], [id number], [id number], [id number], [id number] ####[facility] (DEFAULT)[address] [place] [address] Neutrophils/100 WBC (Bld) 64 % Normal 44-88 [facility] Comment on above: Performed By: #### 1 [id number], [id number], [id number], [id number], [id number], [id number] ####[facility] (DEFAULT)[address] [place] [address] Anesthesia Noteon 08-10-2021 Anesthesia Note Patient: SUSAN [...] on: 08/10/2021 10:12 EST] Rony Ordonez MD [facility] Anesthesia Note Patient: SUSAN RENE Age: [...] on: 08/10/2021 10:00 EST] Rony Ordonez MD [facility] Anesthesia Note Patient: SUSAN RENE Age: 65 years Sex: FEMALE : 1955 Associated Diagnoses: None Author: Rony Ordonez MD Preoperative Information Anesthesia history: Patient history: No difficult intubation, No malignant hyperthermia. Family history: No malignant hyperthermia. Review of Systems Respiratory: recent COVID positive but no symptoms at present pulmonary [place], No shortness of breath, No apnea. 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 Hysterectomy (134739750). Social History Electronic Cigarette/Vaping Assessment Electronic Cigarette [...] % Auto Lymph % 24 % Auto [place] % 8 % Auto Eos % 3.3 % Auto Baso % 0.8 % Neut Abs# 3.1 x103/mcL Lymph Abs# 1.2 x103/mcL LOW [place] Abs# 0.4 x103/mcL Eos Abs# 0.2 x103/mcL Baso Abs# 0.0 x103/mcL Sodium Level 142.0 mmol/L Potassium Level 3.8 mmol/L Chloride Level 105 mmol/L CO2 25 mmol/L Anion Gap 16.0 mmol/L Glucose Level 74.0 mg/dL BUN 6 mg/dL LOW Creatinine Level 0.64 mg/dL BUN/Creat Ratio 9.0 eGFR AA >60 mL/min/1.73m2 NA eGFR Non A (more content not included)... Normal [facility] CBC w/ Auto Diffon 2 Erythrocyte distribution width (RBC) [Ratio] 18.0 % High 11.5-15.0 [facility] Comment on above: Performed By: #### 1 [id number], 6505242566, 9184893, 69721950, 2653478, 7758745193 ####[facility] (DEFAULT)[address] [place] [address] 16913 Hematocrit (Bld) [Volume fraction] 25.6 % Low 33.7-40.4 [facility] Comment on above: Performed By: #### 1 445179868, 7378359507, 4478200, 76934013, 0599831, 0534130167 ####[facility] (DEFAULT)[address] [place] [address] 03097 Hemoglobin (Bld) [Mass/Vol] 7.6 g/dL Low 11.3-15.9 [facility] Comment on above: Performed By: #### 1 144498383, 6892945657, 7131705, 96278989, 3750556, 5418589765 ####[facility] (DEFAULT)[address] [place] [address] Instr WBC 4.9 x10 Invalid Interpretation Code [facility] Comment on above: Performed By: #### 1 914057920, 8194321347, 7071626, 33789497, 4138137, 7695385745 ####[facility] (DEFAULT)[address] [place] [address] 75323 Man Diff? Auto Normal [facility] Comment on above: Performed By: #### 1 141383122, 9165420521, 3310705, 68720898, 6275544, 7449968594 ####[facility] (DEFAULT)[address] [place] [address] 52708 MCH (RBC) [Entitic mass] 28 pg Normal 24-34 [facility] Comment on above: Performed By: #### 1 757771412, 3911267042, 6398080, 24408217, 6848844, 5181924556 ####[facility] (DEFAULT)[address] [place] [address] 22038 MCHC (RBC) [Mass/Vol] 30 g/dL Normal 26-37 [facility] Comment on above: Performed By: #### 1 862466860, 4818895239, 4185590, 10658155, 9756769, 9078364355 ####[facility] (DEFAULT)[address] [place] [address] 45123 MCV (RBC) [Entitic vol] 93 fL Normal 81-100 [facility] Comment on above: Performed By: #### 1 668277327, 0528427575, 9502168, 69209587, 2438883, 1195052433 ####[facility] (DEFAULT)[address] [place] [address] 12603 Platelet 345 x10 Normal 138-427 [facility] Comment on above: Performed By: #### 1 326922243, 3196274758, 7928921, 63245182, 8199601, 3289550272 ####[facility] (DEFAULT)[address] [place] [address] 93171 Platelet mean volume (Bld) [Entitic vol] 9.3 fL Normal 6.3-10.2 [facility] Comment on above: Performed By: #### 1 972993864, 5934548789, 3357795, 13999761, 2198140, 9499160237 ####[facility] (DEFAULT)[address] [place] [address] RBC 2.74 x10 Low 3.70-5.30 [facility] Comment on above: Performed By: #### 1 504158664, 7723017697, 2639365, 94873363, 2467300, 2486966946 ####[facility] (DEFAULT)[address] [place] [address] WBC 4.9 x10 Normal 3.5-10.5 [facility] Comment on above: Performed By: #### 1 482693000, 2189127994, 5576169, 96483795, 5782800, 5303998131 ####[facility] (DEFAULT)[address] [place] [address] Standardon 08-10-2021 eGFR Non AA >60 Invalid Interpretation Code [facility] Comment on above: Performed By: #### 1 725989500, 1365019750, 3155067, 19353564, 4005061, 7500291757 ####[facility] (DEFAULT)[address] [place] [address] 98450 eGFR AA >60 Invalid Interpretation Code [facility] Comment on above: Result 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 Kidney Failure is indicated at less than 15 ml/min/1.73m2 Performed By: #### 1 001305462, 6572935890, 8919785, 08263162, 5984754, 7049791375 ####[facility] (DEFAULT)[address] [place] [address] 46783 Albumin [Mass/Vol] 3.3 g/dL Low 3.5-5.0 [facility] Comment on above: Performed By: #### 1 591255065, 2062994273, 3294607, 53324916, 1121046, 1855400412 ####[facility] (DEFAULT)[address] [place] [address] Albumin/Globulin [Mass ratio] 2.4 {ratio} Normal 1.4-2.6 [facility] Comment on above: Performed By: #### 1 574490893, 1072356461, 1860944, 32490707, 7377110, 2618918990 ####[facility] (DEFAULT)[address] [place] [address] Alk Phos 27 IU/L Low 32-91 [facility] Comment on above: Performed By: #### 1 410042153, 6823375300, 8365820, 36481624, 0759751, 3916087447 ####[facility] (DEFAULT)[address] [place] [address] ALT [Catalytic activity/Vol] 14.0 U/L Normal 14.0-54.0 [facility] Comment on above: Performed By: #### 1 738038972, 1592615091, 2797253, 36483926, 7883361, 7573155499 ####[facility] (DEFAULT)[address] [place] [address] Anion gap [Moles/Vol] 16.0 mmol/L Normal 5.0-19.0 [facility] Comment on above: Performed By: #### 1 885892951, 0331197771, 9538080, 10142288, 7463387, 0410311296 ####[facility] (DEFAULT)[address] [place] [address] 89486 AST [Catalytic activity/Vol] 23 U/L Normal 15-41 [facility] Comment on above: Performed By: #### 1 523323370, 4094510250, 8225273, 98201336, 0403781, 7816726783 ####[facility] (DEFAULT)[address] [place] [address] Bili Total 0.3 mg/dL Normal 0.3-1.2 [facility] Comment on above: Performed By: #### 1 438697124, 5146391684, 9985203, 65231205, 6847742, 7067740550 ####[facility] (DEFAULT)[address] [place] [address] 02324 Calcium [Mass/Vol] 6.4 mg/dL Low 8.9-10.3 [facility] Comment on above: Performed By: #### 1 705726574, 9292387771, 1563071, 42784775, 2515728, 0058662956 ####[facility] (DEFAULT)[address] [place] [address] 50513 Chloride [Moles/Vol] 105 mmol/L Normal 101-111 [facility] Comment on above: Performed By: #### 1 078757525, 5206509592, 7288009, 40394927, 1975832, 6154062679 ####[facility] (DEFAULT)[address] [place] [address] 56388 CO2 [Moles/Vol] 25 mmol/L Normal 21-32 [facility] Comment on above: Performed By: #### 1 768124334, 5995176625, 9800892, 17535130, 0649770, 5153669805 ####[facility] (DEFAULT)[address] [place] [address] 79785 Creatinine [Mass/Vol] 0.64 mg/dL Normal 0.60-1.30 [facility] Comment on above: Performed By: #### 1 054202481, 1731257186, 6192192, 91933527, 2437549, 2840795696 ####[facility] (DEFAULT)[address] [place] [address] 44355 Globulin (S) [Mass/Vol] 1.4 g/dL Low 1.5-4.3 [facility] Comment on above: Performed By: #### 1 537732193, 7978862958, 9646282, 76182023, 6410649, 8499549675 ####[facility] (DEFAULT)[address] [place] [address] 90071 Glucose [Mass/Vol] 74.0 mg/dL Normal 74.0-118.0 [facility] Comment on above: Performed By: #### 1 305384688, 8297255062, 3202999, 22487673, 2116955, 7979628526 ####[facility] (DEFAULT)[address] [place] [address] 20608 Osmolality 279 mOsm/L Invalid Interpretation Code [facility] Comment on above: Performed By: #### 1 589459197, 6525158553, 5721623, 30471343, 5383954, 9762561300 ####[facility] (DEFAULT)[address] [place] [address] 34541 Potassium [Moles/Vol] 3.8 mmol/L Normal 3.6-5.1 [facility] Comment on above: Performed By: #### 1 354058499, 8650544367, 9150157, 65310815, 2839145, 0674314832 ####[facility] (DEFAULT)[address] [place] [address] 25345 Protein [Mass/Vol] 4.7 g/dL Low 6.5-8.1 [facility] Comment on above: Performed By: #### 1 227081202, 5452221598, 6784668, 76422025, 5010519, 4143070687 ####[facility] (DEFAULT)[address] [place] [address] 89635 Sodium [Moles/Vol] 142.0 mmol/L Normal 136.0-144.0 [facility] Comment on above: Performed By: #### 1 564694113, 4915183895, 8930677, 18975898, 5639428, 6984393747 ####[facility] (DEFAULT)[address] [place] [address] 34735 Urea nitrogen [Mass/Vol] 6 mg/dL Low 8-26 [facility] Comment on above: Performed By: #### 1 791162340, 3550196593, 4787070, 01462234, 9019024, 7881743314 ####[facility] (DEFAULT)[address] [place] [address] 16818 Urea nitrogen/Creatinin e [Mass ratio] 9.0 mg/mg Normal 4.6-16.2 [facility] Comment on above: Performed By: #### 1 076128847, 2362771738, 2332500, 16127603, 8230336, 0607985052 ####[facility] (DEFAULT)[address] [place] [address] 24077 Extra Greyon 08-10-2021 Tube Collected Yes Invalid Interpretation Code [facility] Comment on above: Performed By: #### 2 943467570, 52435511 ####[facility] (DEFAULT)[address] [place] [address] 25884 Extra Redon 08-10-2021 Tube Collected Yes Invalid Interpretation Code [facility] Comment on above: Performed By: #### 1 529385223, 5283045369, 6722806, 45818571, 9348473, 9135497404 ####[facility] (DEFAULT)[address] [place] [address] 42410 MAGR Intraoperative Recordon 08-10-2021 MAGR Intraoperative Record MAGR Intra-Op Record Summary Primary Physician: Noe Reed MD Finalized Date/Time: 08/10/21 10:21:22 Pt. Name: ASHVIN RENE /Sex: 1955 FEMALE Med Rec #: [id number] Physician: Norman Hughes MD Financial #: [id number] Pt. Type: I Room/Bed: [facility] Admit/Disch: 08/06/21 17:10:50 - Institution: Case Times [...] Role Performed Surgeon - Primary Anesthesiologist of Aerospace Assembler Record Time In 08/10/21 09:00:00 08/10/21 09:00:00 08/10/21 09:00:00 Time Out 08/10/21 10:01:00 08/10/21 10:01:00 08/10/21 10:01:00 Procedure Esophagogastroduodenosco Esophagogastroduodenosco Esophagogastroduodenosco py and Colonosco py and Colonosco py and Colonosco Last Modified By: Helena Sandoval 08/10/21 Helena Sandoval 08/10/21 Helena Sandoval 08/10/21 10:19:10 10:19:10 10:19:10 Entry 4 Entry 5 Case Attendee Mandy Perdomo RN, Regina CST Role Performed Aerospace Assembler Scrub Personnel Time In 08/10/21 09:00:00 08/10/21 [...] injury r (more content not included)... Normal [facility] 08-10-2021 Magnesium [Mass/Vol] 1.50 mg/dL Low 1.80-2.50 [facility] Comment on above: Performed By: #### 1 055195135, 2819869083, 2120838, 08530543, 8004865, 6532904651 ####[facility] (DEFAULT)[address] [place] [address] Nutrition Noteon 08-10-2021 Nutrition Note No new wts, Per inta ke records, Pt intake ranging 25-100%, eating better for lunch. Pt also taking supplements well. These appear to have been discontinued for scheduled colonscopy/EGD this am and not resumed. Per MD notes, tests unremarkable. With improving intake avg >/+ 50% of most meals, will hold off from re-adding Ensure. Will continue to monitor. [facility] Progress Note - Nurseon 07-15 Progress Note - Nurse pt returns from recovery. alert and drowsy. iv intact. pt able to tolerate water with no issues. denies pain. report received from holly perdomo RN. will continue to monitor. [Electronically Signed on: 08/10/2021 11:35 EST] Joslyn Roth RN [Verified on: 08/10/2021 11:35 EST] Joslyn Roth RN [facility] Telemetry Stripson Telemetry Strips [id number]#1.00OTGTIFF [facility] Telemetry Strips [id number]#1.00OTGTIFF [facility] .Auto Diff 1on 08-09-2021 Auto [place] % 10 % Normal 07-25 [facility] Comment on above: Performed By: #### 2 605861, 6653353633, 1552166, 56541344 ####[facility] (DEFAULT)[address] [place] [address] 56282 Baso Abs# 0.0 x10 Normal 0.0-0.2 [facility] Comment on above: Performed By: #### 2 351505, 5717644016, 6271199, 40539612 ####[facility] (DEFAULT)[address] [place] [address] 82956 Basophils/100 WBC (Bld) 0.6 % Normal 0.2-2.0 [facility] Comment on above: Performed By: #### 2 797760, 4824264566, 8751767, 69028947 ####[facility] (DEFAULT)[address] [place] [address] 94461 Eos Abs# 0.2 x10 Normal 0.0-0.4 [facility] Comment on above: Performed By: #### 2 851080, 7237919438, 9107548, 18272100 ####[facility] (DEFAULT)[address] [place] [address] 47294 Eosinophils/100 WBC (Bld) 3.3 % Normal 0.9-4.0 [facility] Comment on above: Performed By: #### 2 678462, 8000442382, 6558238, 69573955 ####[facility] (DEFAULT)[address] [place] [address] 02048 Lymph Abs# 1.2 x10 Low 1.3-2.9 [facility] Comment on above: Performed By: #### 2 943614, 8110620667, 0441381, 10459895 ####[facility] (DEFAULT)[address] [place] [address] 97708 Lymphocytes/100 WBC (Bld) 21 % Normal 14-48 [facility] Comment on above: Performed By: #### 2 806955, 2438383686, 2548180, 84999941 ####[facility] (DEFAULT)[address] [place] [address] 47688 [place] Abs# 0.5 x10 Normal 0.0-0.8 [facility] Comment on above: Performed By: #### 2 624206, 0500223611, 6071451, 51630153 ####[facility] (DEFAULT)[address] [place] [address] 71983 Neut Abs# 3.6 x10 Normal 1.5-9.2 [facility] Comment on above: Performed By: #### 2 762666, 0757793776, 0357783, 14279201 ####[facility] (DEFAULT)[address] [place] [address] Neutrophils/100 WBC (Bld) 65 % Normal 44-88 [facility] Comment on above: Performed By: #### 2 542640, 6741077587, 3937590, 23982781 ####[facility] (DEFAULT)[address] [place] [address]82[facility] Standardon 08-09-2021 eGFR Non AA >60 Invalid Interpretation Code [facility] Comment on above: Performed By: #### 2 659087, 0039552224, 0744307, 11633291 ####[facility] (DEFAULT)[address] [place] [address] eGFR AA >60 Invalid Interpretation Code [facility] Comment on above: Result 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 Kidney Failure is indicated at less than 15 ml/min/1.73m2 Performed By: #### 2 658919, 3085063844, 3324031, 36955345 ####[facility] (DEFAULT)[address] [place] [address] 15974 Anion gap [Moles/Vol] 16.0 mmol/L Normal 5.0-19.0 [facility] Comment on above: Performed By: #### 2 562424, 1933229043, 1619885, 41763685 ####[facility] (DEFAULT)[address] [place] [address] 64616 Calcium [Mass/Vol] 6.2 mg/dL Low 8.9-10.3 [facility] Comment on above: Performed By: #### 2 631870, 2128216483, 4764686, 39647326 ####[facility] (DEFAULT)[address] [place] [address] 56687 Chloride [Moles/Vol] 107 mmol/L Normal 101-111 [facility] Comment on above: Performed By: #### 2 999771, 3452218738, 9883667, 33357555 ####[facility] (DEFAULT)[address] [place] [address] 89929 CO2 [Moles/Vol] 24 mmol/L Normal 21-32 [facility] Comment on above: Performed By: #### 2 139337, 2294058794, 3964460, 66975551 ####[facility] (DEFAULT)[address] [place] [address] 11526 Creatinine [Mass/Vol] 0.72 mg/dL Normal 0.60-1.30 [facility] Comment on above: Performed By: #### 2 876417, 1752501821, 9213326, 81581447 ####[facility] (DEFAULT)[address] [place] [address] 78387 Glucose [Mass/Vol] 79.0 mg/dL Normal 74.0-118.0 [facility] Comment on above: Performed By: #### 2 159629, 6489846114, 2798647, 61683973 ####[facility] (DEFAULT)[address] [place] [address] 23465 Osmolality 282 mOsm/L Invalid Interpretation Code [facility] Comment on above: Performed By: #### 2 978058, 8373031242, 0736194, 59606259 ####[facility] (DEFAULT)[address] [place] [address] 90383 Potassium [Moles/Vol] 3.9 mmol/L Normal 3.6-5.1 [facility] Comment on above: Performed By: #### 2 352813, 2365785256, 8129673, 33205398 ####[facility] (DEFAULT)[address] [place] [address] 86354 Sodium [Moles/Vol] 143.0 mmol/L Normal 136.0-144.0 [facility] Comment on above: Performed By: #### 2 746158, 8604444674, 2069403, 19746214 ####[facility] (DEFAULT)[address] [place] [address] Urea nitrogen [Mass/Vol] 8 mg/dL Normal 8-26 [facility] Comment on above: Performed By: #### 2 142953, 8316399433, 3481341, 94381146 ####[facility] (DEFAULT)[address] [place] [address] Urea nitrogen/Creatinin e [Mass ratio] 11.0 mg/mg Normal 4.6-16.2 [facility] Comment on above: Performed By: #### 2 468372, 0705367076, 0324091, 41439012 ####[facility] (DEFAULT)[address] [place] [address] CBC w/ Auto Diffon Erythrocyte distribution width (RBC) [Ratio] 17.9 % High 11.5-15.0 [facility] Comment on above: Performed By: #### 2 974935, 8892978865, 7009832, 88202493 ####[facility] (DEFAULT)[address] [place] [address] Hematocrit (Bld) [Volume fraction] 24.1 % Low 33.7-40.4 [facility] Comment on above: Performed By: #### 2 309200, 7374495091, 1805629, 76812639 ####[facility] (DEFAULT)[address] [place] [address] Hemoglobin (Bld) [Mass/Vol] 7.2 g/dL Low 11.3-15.9 [facility] Comment on above: Result Comment: RIGO barrientos pt received 1 unit on 08/06/21 Performed By: #### 2 333684, 4258898633, 6794913, 49622881 ####[facility] (DEFAULT)[address] [place] [address] Instr WBC 5.4 x10 Invalid Interpretation Code [facility] Comment on above: Performed By: #### 2 334576, 2341950480, 9330940, 84026129 ####[facility] (DEFAULT)[address] [place] [address] 43577 Man Diff? Auto Normal [facility] Comment on above: Performed By: #### 2 772544, 8646158226, 7008250, 07042892 ####[facility] (DEFAULT)[address] [place] [address] 20787 MCH (RBC) [Entitic mass] 28 pg Normal 24-34 [facility] Comment on above: Performed By: #### 2 110216, 4653525677, 1437942, 70126210 ####[facility] (DEFAULT)[address] [place] [address] MCHC (RBC) [Mass/Vol] 30 g/dL Normal 26-37 [facility] Comment on above: Performed By: #### 2 097245, 6167836904, 9318063, 67562737 ####[facility] (DEFAULT)[address] [place] [address] 00895 MCV (RBC) [Entitic vol] 94 fL Normal 81-100 [facility] Comment on above: Performed By: #### 2 256771, 1618484280, 0906764, 26008232 ####[facility] (DEFAULT)[address] [place] [address] 97883 Platelet 336 x10 Normal 138-427 [facility] Comment on above: Performed By: #### 2 503068, 3916491358, 5625045, 89577932 ####[facility] (DEFAULT)[address] [place] [address] 44359 Platelet mean volume (Bld) [Entitic vol] 9.5 fL Normal 6.3-10.2 [facility] Comment on above: Performed By: #### 2 433158, 5212156133, 9080282, 00774298 ####[facility] (DEFAULT)[address] [place] [address] 77850 RBC 2.57 x10 Low 3.70-5.30 [facility] Comment on above: Performed By: #### 2 581420, 6725297881, 4253879, 57402767 ####[facility] (DEFAULT)[address] [place] [address] WBC 5.4 x10 Normal 3.5-10.5 [facility] Comment on above: Performed By: #### 2 412498, 4020781631, 8777245, 43052989 ####[facility] (DEFAULT)[address] [place] [address] 57362 Cortisol LCon 08-09-2021 Cortisol LC 15.5 ug/dL Invalid Interpretation Code [facility] Comment on above: Result Comment: [place] isol AM 6.2 - 19.4 Cortisol PM 2.3 - 11.9 Performed At: [facility] [address] [id number] Brenna Iyer PhD Ph:[phone] Performed By: #### 7 457742, 99272750, 3744419, 8106450793 #### [facility] (DEFAULT) [address] [place] [address] Lab - AP Resultson 2 Lab - AP Results [id number]#1.00OTGTIFF Normal [facility] Magnesiumon 08-09-2021 Magnesium [Mass/Vol] 1.56 mg/dL Low 1.80-2.50 [facility] Comment on above: Performed By: #### 2 165402, 9561382588, 3836954, 26223807 ####[facility] (DEFAULT)[address] [place] [address] Telemetry Stripson 2 Telemetry Strips [id number]#1.00OTGTIFF Normal [facility] .Auto Diff 1on 08-08-2021 Auto [place] % 8 % Normal -12 [facility] Comment on above: Performed By: #### 7 216956, 03943201, 2948672, 4789757708 #### [facility] (DEFAULT) [address] [place] [address] Baso Abs# 0.0 x10 Normal 0.0-0.2 [facility] Comment on above: Performed By: #### 7 602881, 70536775, 0991993, 6120971385 #### [facility] (DEFAULT) [address] [place] [address] 71792 Basophils/100 WBC (Bld) 0.8 % Normal 0.2-2.0 [facility] Comment on above: Performed By: #### 7 514203, 49728845, 7298624, 5379855529 #### [facility] (DEFAULT) [address] [place] [address] Eos Abs# 0.2 x10 Normal 0.0-0.4 [facility] Comment on above: Performed By: #### 7 267905, 19230711, 8540655, 6523340196 #### [facility] (DEFAULT) [address] [place] [address] Eosinophils/100 WBC (Bld) 2.6 % Normal 0.9-4.0 [facility] Comment on above: Performed By: #### 7 691918, 46848469, 7953776, 2187979265 #### [facility] (DEFAULT) [address] [place] [address] Lymph Abs# 1.8 x10 Normal 1.3-2.9 [facility] Comment on above: Performed By: #### 7 303247, 47193016, 1091911, 4232639141 #### [facility] (DEFAULT) [address] [place] [address] 50129 Lymphocytes/100 WBC (Bld) 27 % Normal 14-48 [facility] Comment on above: Performed By: #### 7 198038, 06543273, 7128632, 4704977896 #### [facility] (DEFAULT) [address] [place] [address] [place] Abs# 0.5 x10 Normal 0.0-0.8 [facility] Comment on above: Performed By: #### 7 822005, 10760560, 2333486, 0267748273 #### [facility] (DEFAULT) [address] [place] [address] Neut Abs# 4.0 x10 Normal 1.5-9.2 [facility] Comment on above: Performed By: #### 7 460593, 68451181, 3400182, 4595361173 #### [facility] (DEFAULT) [address] [place] [address] Neutrophils/100 WBC (Bld) 62 % Normal 44-88 [facility] Comment on above: Performed By: #### 7 258830, 60174558, 4299071, 5317688051 #### [facility] (DEFAULT) [address] [place] [address] Ambulance Noteon 08-08-2021 Ambulance Note [id number]#1.00OTGTIFF Normal [facility] BMP Standardon 08-08-2021 eGFR Non AA >60 Invalid Interpretation Code [facility] Comment on above: Performed By: #### 7 428263, 33776440, 6300248, 7577544433 #### [facility] (DEFAULT) [address] [place] [address] eGFR AA >60 Invalid Interpretation Code [facility] Comment on above: Result 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 Kidney Failure is indicated at less than 15 ml/min/1.73m2 Performed By: #### 7 361255, 66200887, 1937048, 4425518663 #### [facility] (DEFAULT) [address] [place] [address] 20927 Anion gap [Moles/Vol] 15.0 mmol/L Normal 5.0-19.0 [facility] Comment on above: Performed By: #### 7 [id number], [id number], [id number], [id number] #### [facility] (DEFAULT) [address] [place] [address] Calcium [Mass/Vol] 5.9 mg/dL Critically abnormal 8.9-10.3 [facility] Comment on above: Result Comment: Crit ical CALC 5.9 result called and read back ok to: DEMETRA DAS RN 2S at: 05:25:23 08/08/2021 by: SYBIL Performed By: #### 7 [id number], [id number], [id number], [id number] #### [facility] (DEFAULT) [address] [place] [address]37 Chloride [Moles/Vol] 109 mmol/L Normal 101-111 [facility] Comment on above: Performed By: #### 7 [id number], [id number], [id number], [id number] #### [facility] (DEFAULT) [address] [place] [address]3267 CO2 [Moles/Vol] 20 mmol/L Low 21-32 [facility] Comment on above: Performed By: #### 7 [id number], [id number], [id number], [id number] #### [facility] (DEFAULT) [address] [place] [address]363 Creatinine [Mass/Vol] 0.68 mg/dL Normal 0.60-1.30 [facility] Comment on above: Performed By: #### 7 [id number], [id number], [id number], [id number] #### [facility] (DEFAULT) [address] [place] [address]197 Glucose [Mass/Vol] 82.0 mg/dL Normal 74.0-118.0 [facility] Comment on above: Performed By: #### 7 [id number], [id number], [id number], [id number] #### [facility] (DEFAULT) [address] [place] [address]7636 Osmolality 277 mOsm/L Invalid Interpretation Code [facility] Comment on above: Performed By: #### 7 [id number], [id number], [id number], [id number] #### [facility] (DEFAULT) [address] [place] [address] 10200 Potassium [Moles/Vol] 3.6 mmol/L Normal 3.6-5.1 [facility] Comment on above: Performed By: #### 7 [id number], [id number], 8298073, [id number] #### [facility] (DEFAULT) [address] [place] [address]155 Sodium [Moles/Vol] 140.0 mmol/L Normal 136.0-144.0 [facility] Comment on above: Performed By: #### 7 [id number], [id number], 9144362, [id number] #### [facility] (DEFAULT) [address] [place] [address] 62817 Urea nitrogen [Mass/Vol] 9 mg/dL Normal 8-26 [facility] Comment on above: Performed By: #### 7 368454, 81925841, 1129815, [id number] #### [facility] (DEFAULT) [address] [place] [address] Urea nitrogen/Creatinin e [Mass ratio] 13.0 mg/mg Normal 4.6-16.2 [facility] Comment on above: Performed By: #### 7 982043, 67852771, 4451233, [id number] #### [facility] (DEFAULT) [address] [place] [address] CBC w/ Auto Diffon 2 Erythrocyte distribution width (RBC) [Ratio] 18.4 % High 11.5-15.0 [facility] Comment on above: Performed By: #### 1 [id number], 3809658, 25994743, 9850245 #### [facility] (DEFAULT) [address] [place] [address] Hematocrit (Bld) [Volume fraction] 31.6 % Low 33.7-40.4 [facility] Comment on above: Performed By: #### 1 496159575, 4720370, 59786967, 6246167 #### [facility] (DEFAULT) [address] [place] [address] 82097 Hemoglobin (Bld) [Mass/Vol] 9.6 g/dL Low 11.3-15.9 [facility] Comment on above: Performed By: #### 1 883024698, 7008567, 40839894, 2681524 #### [facility] (DEFAULT) [address] [place] [address] Instr WBC 6.5 x10 Invalid Interpretation Code [facility] Comment on above: Performed By: #### 1 [id number], 1484440, 34362440, 2349849 #### [facility] (DEFAULT) [address] [place] [address] Man Diff? Auto Normal [facility] Comment on above: Performed By: #### 1 [id number], 5401219, 79071602, 0661809 #### [facility] (DEFAULT) [address] [place] [address] 82789 MCH (RBC) [Entitic mass] 28 pg Normal 24-34 [facility] Comment on above: Performed By: #### 1 334740057, 4814373, 73291870, 1562613 #### [facility] (DEFAULT) [address] [place] [address] 54074 MCHC (RBC) [Mass/Vol] 30 g/dL Normal 26-37 [facility] Comment on above: Performed By: #### 1 [id number], 7155580, 35331434, 7065741 #### [facility] (DEFAULT) [address] [place] [address] MCV (RBC) [Entitic vol] 92 fL Normal 81-100 [facility] Comment on above: Performed By: #### 1 147447698, 2078806, 53046099, 2460269 #### [facility] (DEFAULT) [address] [place] [address] Platelet 450 x10 High 138-427 [facility] Comment on above: Performed By: #### 1 [id number], 6653660, 68438951, 3067965 #### [facility] (DEFAULT) [address] [place] [address] Platelet mean volume (Bld) [Entitic vol] 9.4 fL Normal 6.3-10.2 [facility] Comment on above: Performed By: #### 1 517672392, 8287161, 13888405, 0928043 #### [facility] (DEFAULT) [address] [place] [address] RBC 3.45 x10 Low 3.70-5.30 [facility] Comment on above: Performed By: #### 1 453723620, 8276448, 87130089, 6326796 #### [facility] (DEFAULT) [address] [place] [address] 08415 WBC 6.5 x10 Normal 3.5-10.5 [facility] Comment on above: Performed By: #### 1 327760694, 7540016, 57479947, 7375494 #### [facility] (DEFAULT) [address] [place] [address] 57510 CRPon 08-08-2021 CRP 0.6 mg/dL High <=0.5 [facility] Comment on above: Performed By: #### 7 249187, 83612411, 3557138, [id number] #### [facility] (DEFAULT) [address] [place] [address] 89512 Haptoglobin LCon 08-08-2021 Haptoglobin LC 162 mg/dL Invalid Interpretation Code 98-046 [facility] Comment on above: Result Comment: Perf ormed At: [facility] [address] [id number] Brenna Iyer PhD Ph:[phone] Performed By: #### 1 [id number], 6475801, 90324683, 0442606 #### [facility] (DEFAULT) [address] [place] [address] 10479 Magnesiumon 08-08-2021 Magnesium [Mass/Vol] 1.47 mg/dL Low 1.80-2.50 [facility] Comment on above: Performed By: #### 7 675583, 08757425, 7840280, [id number] #### [facility] (DEFAULT) [address] [place] [address] 17619 Nutrition Noteon 08-08-2021 SARS-CoV-2 (COVID-19) RNA JESSICA+probe [...] Ensure Compact BIDWM and monitor acceptance. Normal [facility] Telemetry Stripson 2 Telemetry Strips [id number] Normal [facility] .Auto Diff 108-07-2021 Auto [place] % 8 % Normal 07-25 [facility] Comment on above: Performed By: #### 1 262575408, 2075278, 11318435, 1535065 #### [facility] (DEFAULT) [address] [place] [address] 53769 Baso Abs# 0.0 x10 Normal 0.0-0.2 [facility] Comment on above: Performed By: #### 1 229209521, 8621664, 87669893, 4263841 #### [facility] (DEFAULT) [address] [place] [address] 20356 Basophils/100 WBC (Bld) 0.6 % Normal 0.2-2.0 [facility] Comment on above: Performed By: #### 1 668087415, 6687403, 80363045, 1156586 #### [facility] (DEFAULT) [address] [place] [address] 16670 Eos Abs# 0.1 x10 Normal 0.0-0.4 [facility] Comment on above: Performed By: #### 1 846743735, 7558042, 43788202, 8906672 #### [facility] (DEFAULT) [address] [place] [address] 73190 Eosinophils/100 WBC (Bld) 1.3 % Normal 0.9-4.0 [facility] Comment on above: Performed By: #### 1 143475384, 4202051, 98864171, 6249330 #### [facility] (DEFAULT) [address] [place] [address] 72832 Lymph Abs# 1.6 x10 Normal 1.3-2.9 [facility] Comment on above: Performed By: #### 1 859919963, 4454122, 05203460, 5092634 #### [facility] (DEFAULT) [address] [place] [address] Lymphocytes/100 WBC (Bld) 24 % Normal 14-48 [facility] Comment on above: Performed By: #### 1 469167092, 6757333, 77825279, 7502664 #### [facility] (DEFAULT) [address] [place] [address] [place] Abs# 0.6 x10 Normal 0.0-0.8 [facility] Comment on above: Performed By: #### 1 454250123, 5761882, 60770453, 3179100 #### [facility] (DEFAULT) [address] [place] [address] Neut Abs# 4.4 x10 Normal 1.5-9.2 [facility] Comment on above: Performed By: #### 1 264872455, 7986165, 65519521, 0588523 #### [facility] (DEFAULT) [address] [place] [address] Neutrophils/100 WBC (Bld) 65 % Normal 44-88 [facility] Comment on above: Performed By: #### 1 284005824, 5839171, 95689578, 7536446 #### [facility] (DEFAULT) [address] [place] [address] CBC w/ Auto Diffon 2 Erythrocyte distribution width (RBC) [Ratio] 18.4 % High 11.5-15.0 [facility] Comment on above: Performed By: #### 1 293178102, 8121790, 76123605, 2298929 #### [facility] (DEFAULT) [address] [place] [address] Hematocrit (Bld) [Volume fraction] 33.1 % Low 33.7-40.4 [facility] Comment on above: Performed By: #### 1 677276866, 9349259, 56369365, 7828672 #### [facility] (DEFAULT) [address] [place] [address] 57915 Hemoglobin (Bld) [Mass/Vol] 9.9 g/dL Low 11.3-15.9 [facility] Comment on above: Result Comment: Charo ent received 1 unit of PRBC's on 08/06/21 Performed By: #### 1 473149689, 4108250, 71224576, 7789090 #### [facility] (DEFAULT) [address] [place] [address] 16842 Instr WBC 6.7 x10 Invalid Interpretation Code [facility] Comment on above: Performed By: #### 1 502571687, 7453955, 17048423, 8808364 #### [facility] (DEFAULT) [address] [place] [address] 93248 Man Diff? Auto Normal [facility] Comment on above: Performed By: #### 1 653414220, 4796632, 40487184, 3012438 #### [facility] (DEFAULT) [address] [place] [address] 77667 MCH (RBC) [Entitic mass] 28 pg Normal 24-34 [facility] Comment on above: Performed By: #### 1 427429320, 0021408, 50211841, 9321503 #### [facility] (DEFAULT) [address] [place] [address] 19014 MCHC (RBC) [Mass/Vol] 30 g/dL Normal 26-37 [facility] Comment on above: Performed By: #### 1 580794545, 5565245, 74869928, 4810174 #### [facility] (DEFAULT) [address] [place] [address] 23994 MCV (RBC) [Entitic vol] 92 fL Normal 81-100 [facility] Comment on above: Performed By: #### 1 555999257, 9034199, 76194636, 6571066 #### [facility] (DEFAULT) [address] [place] [address] 59805 Platelet 515 x10 High 138-427 [facility] Comment on above: Performed By: #### 1 883576936, 7409707, 23109994, 3647859 #### [facility] (DEFAULT) [address] [place] [address] 91355 Platelet mean volume (Bld) [Entitic vol] 9.0 fL Normal 6.3-10.2 [facility] Comment on above: Performed By: #### 1 473470090, 0332722, 35120063, 0200871 #### [facility] (DEFAULT) [address] [place] [address] 26702 RBC 3.60 x10 Low 3.70-5.30 [facility] Comment on above: Performed By: #### 1 377048797, 4276654, 72251419, 6316658 #### [facility] (DEFAULT) [address] [place] [address] 27422 WBC 6.7 x10 Normal 3.5-10.5 [facility] Comment on above: Performed By: #### 1 928638869, 1533913, 90693246, 8215655 #### [facility] (DEFAULT) [address] [place] [address] 16968 CMP Standardon 08-07-2021 Albumin [Mass/Vol] 1.6 g/dL Low 3.5-5.0 [facility] Comment on above: Order Comment: I [...] blood work. CJ Performed By: #### 1 326691790, 2001294, 46471974, 1501371 #### [facility] (DEFAULT) [address] [place] [address] 22634 Albumin/Globulin [Mass ratio] 0.7 {ratio} Low 1.4-2.6 [facility] Comment on above: Order Comment: I [...] blood work. CJ Performed By: #### 1 237015621, 3261603, 06841244, 6350074 #### [facility] (DEFAULT) [address] [place] [address] 94910 Alk Phos 48 IU/L Normal 32-91 [facility] Comment on above: Order Comment: I [...] blood work. CJ Performed By: #### 1 300445792, 4757629, 62384168, 4693797 #### [facility] (DEFAULT) [address] [place] [address] 35347 ALT [Catalytic activity/Vol] 21.0 U/L Normal 14.0-54.0 [facility] Comment on above: Order Comment: I [...] blood work. CJ Performed By: #### 1 650415069, 1717662, 94174109, 4378603 #### [facility] (DEFAULT) [address] [place] [address] 26945 Anion gap [Moles/Vol] 14.0 mmol/L Normal 5.0-19.0 [facility] Comment on above: Order Comment: I [...] blood work. CJ Performed By: #### 1 445844305, 5768818, 03070606, 4352605 #### [facility] (DEFAULT) [address] [place] [address] 78622 AST [Catalytic activity/Vol] 26 U/L Normal 15-41 [facility] Comment on above: Order Comment: I [...] blood work. CJ Performed By: #### 1 989478940, 4077837, 94729872, 6936375 #### [facility] (DEFAULT) [address] [place] [address] 92959 Bili Total 0.2 mg/dL Low 0.3-1.2 [facility] Comment on above: Order Comment: I [...] blood work. CJ Performed By: #### 1 813287750, 3675669, 78071729, 4346596 #### [facility] (DEFAULT) [address] [place] [address] 42657 Calcium [Mass/Vol] 5.9 mg/dL Critically abnormal 8.9-10.3 [facility] Comment on above: Order Comment: I [...] Result Comment: Fransico tomlinson Called To Shiloh OBRINE 2S By [facility] And Read Back For Confirmation On 08/07/2021 09:25:59 EST. Performed By: #### 1 [id number], 9955693, 78776199, 5933514 #### [facility] (DEFAULT) [address] [place] [address] 04440 Chloride [Moles/Vol] 108 mmol/L Normal 101-111 [facility] Comment on above: Order Comment: I [...] blood work. CJ Performed By: #### 1 076130402, 6809695, 46408453, 2573401 #### [facility] (DEFAULT) [address] [place] [address] 76950 CO2 [Moles/Vol] 21 mmol/L Normal 21-32 [facility] Comment on above: Order Comment: I [...] blood work. CJ Performed By: #### 1 540148816, 1585438, 45608071, 7712082 #### [facility] (DEFAULT) [address] [place] [address] 69296 Creatinine [Mass/Vol] 0.61 mg/dL Normal 0.60-1.30 [facility] Comment on above: Order Comment: I [...] blood work. CJ Performed By: #### 1 500413499, 3834727, 72596118, 3314018 #### [facility] (DEFAULT) [address] [place] [address] 56288 Globulin (S) [Mass/Vol] 2.3 g/dL Normal 1.5-4.3 [facility] Comment on above: Order Comment: I [...] blood work. CJ Performed By: #### 1 084420117, 7948279, 51199982, 3812153 #### [facility] (DEFAULT) [address] [place] [address] 98384 Glucose [Mass/Vol] 79.0 mg/dL Normal 74.0-118.0 [facility] Comment on above: Order Comment: I [...] blood work. CJ Performed By: #### 1 461031712, 6302024, 51058693, 8322132 #### [facility] (DEFAULT) [address] [place] [address] 72683 Osmolality 277 mOsm/L Invalid Interpretation Code [facility] Comment on above: Order Comment: I [...] blood work. CJ Performed By: #### 1 533347921, 0088144, 79850446, 3684247 #### [facility] (DEFAULT) [address] [place] [address] 29267 Potassium [Moles/Vol] 3.2 mmol/L Low 3.6-5.1 [facility] Comment on above: Order Comment: I [...] IV T herapy Performed By: #### 1 821788276, 7468357, 25996724, 3838022 #### [facility] (DEFAULT) [address] [place] [address] 61948 Protein [Mass/Vol] 3.9 g/dL Low 6.5-8.1 [facility] Comment on above: Order Comment: I [...] blood work. CJ Performed By: #### 1 563733749, 2442756, 63479069, 3832894 #### [facility] (DEFAULT) [address] [place] [address] 98537 Sodium [Moles/Vol] 140.0 mmol/L Normal 136.0-144.0 [facility] Comment on above: Order [...] blood work. CJ Performed By: #### 1 196685562, 3483323, 09573525, 9652190 #### [facility] (DEFAULT) [address] [place] [address] 02246 Urea nitrogen [Mass/Vol] 8 mg/dL Normal 8-26 [facility] Comment on above: Order Comment: I [...] blood work. CJ Performed By: #### 1 349326267, 9902107, 10068899, 6321501 #### [facility] (DEFAULT) [address] [place] [address] Urea nitrogen/Creatinin e [Mass ratio] 13.0 mg/mg Normal 4.6-16.2 [facility] Comment on above: Order Comment: I [...] blood work. CJ Performed By: #### 1 867263635, 5776586, 57504929, 9437355 #### [facility] (DEFAULT) [address] [place] [address] 89011 eGFR Non AA >60 Invalid Interpretation Code [facility] Comment on above: Order Comment: I [...] blood work. CJ Performed By: #### 1 189599697, 7050738, 63070258, 2758686 #### [facility] (DEFAULT) [address] [place] [address] 17498 eGFR AA >60 Invalid Interpretation Code [facility] Comment on above: Order Comment: I [...] ALL 2am blood work. CJ Result 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 Kidney Failure is indicated at less than 15 ml/min/1.73m2 Performed By: #### 1 704555282, 8574827, 22494540, 2518182 #### [facility] (DEFAULT) [address] [place] [address] 37105 Consent Formson 08-07-2021 Consent Forms [id number] Normal [facility] ED Clinical Summaryon 2021 ED Clinical Summary [facility] - Emergency Department [address] [place], [place] [id number] ED Clinical Summary PERSON INFORMATION Name: ASHVIN RENE Age: 65 Years Sex: FEMALE : 1955 MRN: Acct#: Visit Reason: General medical; ANEMIA, ELEVATED TROPONIN Arrival: 08/06/2021 17:10:50 Discharge: LOS: 000 05:17 Check In: 08/06/2021 17:10:50 Checkout:08/06/2021 22:27:57 Address: [address] [place] [address] PCP: TUSHAR SOLANO JR. PROVIDER INFORMATION Provider Role Assigned Unassigned Danni Souza ED PA 08/06/2021 17:12:50 08/06/2021 17:16:23 EVERTON NEGRON ED PA 08/06/2021 17:18:50 Jessica Al FINANCE CLERK Nurse 08/06/2021 17:45:27 08/06/2021 19:14:08 Gely Adan FINANCE CLERK Nurse 08/06/2021 19:14:09 VITALS INFORMATION Vital Sign [...] [facility] ER; codeine PHYSICIAN DOCUMENTATION Patient: ASHVIN ERNE Age: 65 years Sex: FEMALE : 1955 Associated Diagnoses: General medical; Anemia; Peripheral edema; GI bleed Author: EVERTON NEGRON Basic Information Time seen: Date & time 08/06/2021 17:19:00. History source: Patient, EMS. Arrival mode: Ambulance. History of Present Illness Patient is a 65-year-old female presenting to the emergency department from [facility] for evaluation of low blood pressure [...] not currently on diuretics secondary to her drug abuse treatment specialist stating that she should not take [...] -Pharynx is pink and dry NECK: -Supple (daqz-mw-psuvk): non-tender. CARD: -Rate and rhythm: Regular -Edema: [...] was performed with patient's consent and nurse jewelry sales representative Jessica in the room the entire time -External rectal exam reveals no abnormalities -Digital rectal exam reveals no masses or polyps within reach of my finger, stool guaiac is positive Medical Decision Making 55-year-old female presenting to the emergency department for evaluation of low blood pressure taken manually at halfway facility of 90/45 and possibility of looking mildly jaundiced. I discussed this with (more content not included)... Normal [facility] ED Patient Education Noteon 08-07-2021 ED Patient Education Note Education Materials [facility] ED Patient Summaryon 022 ED Patient Summary [facility] - Emergency Department [address] [place] [address] PATIENT DISCHARGE INSTRUCTIONS Patient Information Name: ASHVIN RENE Age: 65 Years Date of : 1955 Reason For Visit: General medical; ANEMIA, ELEVATED TROPONIN Arrival Time: 08/06/2021 17:10:50 Primary Care Physician: TUSHAR SOLANO JR. Attending Physician: Waqas Castro MD Comment: Visit Diagnosis: Diagnoses This Visit Anemia (D64.9) General medical ([id number]) GI bleed (K92.2) Peripheral edema (R60.9) Prescription Information: If you have been given a prescription for narcotics, seek immediate medical attention if you have any difficulty breathing or any sudden status changes such as confusion and sleepiness. If you or anyone you know is experiencing suicidal thoughts, mental health, alcohol and/or drug addiction problems; contact the [facility] 03/02 Crisis Hotline -Text 4HOPE to 160478. If you received any narcotics, sedation, or [...] and treatment you received today in the [facility] Emergency Department were for an urgent problem and are not intended as complete care. It is important for you to follow up with a doctor, nurse practitioner, or physician?s assistant plant manager for ongoing care. If your symptoms become [...] so we can reach you if necessary. [facility] Emergency Department has provided you with a complete list of medications post discharge. Please inform your prototype assembler electronics/provider of your visit and for further instruction [...] mg oral tablet) potassium chloride (Potassium Chloride (Bez-Jqkm-Mhs 10) 10 mEq oral tablet, extended release) [...] Weight Dosin. (more content not included)... Normal [facility] Ferritinon 08-07-2021 Ferritin [Mass/Vol] 14.2 ng/mL Normal 12.0-150.0 [facility] Comment on above: Performed By: #### 1 [id number], 9948034, 71615368, 1108622 #### [facility] (DEFAULT) [address] [place] [address] 06680 Folateon 08-07-2021 Folic Acid Level 6.62 ng/mL Normal 5.90-24.80 [facility] Comment on above: Result Comment: Norm al folate results > 3.0 ng/mL. Performed By: #### 1 280455217, 0670388, 08812309, 0112584 #### [facility] (DEFAULT) [address] [place] [address] 28415 Free T4on 08-07-2021 Free T4 [Mass/Vol] 1.30 ng/dL High 0.61-1.12 [facility] Comment on above: Result Comment: Spec imens that contain high levels of Biotin may cause false high results Performed By: #### 1 554013055, 8465835, 07623168, 4225111 #### [facility] (DEFAULT) [address] [place] [address] 33152 Iron Profileon 08-07-2021 Iron [Mass/Vol] 24.0 ug/dL Low 28.0-170.0 [facility] Comment on above: Performed By: #### 1 870113391, 3211389, 81124104, 4410392 #### [facility] (DEFAULT) [address] [place] [address] 62576 Iron Sat 15 % Low 20-55 [facility] Comment on above: Performed By: #### 1 877042356, 4742372, 01929157, 5680052 #### [facility] (DEFAULT) [address] [place] [address] 71724 TIBC 158 mcg/dL Low 250-400 [facility] Comment on above: Performed By: #### 1 074585308, 1025827, 34635705, 2720389 #### [facility] (DEFAULT) [address] [place] [address] 22946 Transferrin [Mass/Vol] 113.1 mg/dL Low 192.0-382.0 [facility] Comment on above: Performed By: #### 1 933243844, 9368233, 25382812, 1592785 #### [facility] (DEFAULT) [address] [place] [address] LDHon 08-07-2021 LDH 299.0 IU/L High 98.0-192.0 [facility] Comment on above: Performed By: #### 1 704032270, 3084616, 60137145, 1406351 #### [facility] (DEFAULT) [address] [place] [address] Magnesiumon 08-07-2021 Magnesium [Mass/Vol] 0.98 mg/dL Low 1.80-2.50 [facility] Comment on above: Performed By: #### 1 770300129, 7904744, 55000499, 4353267 #### [facility] (DEFAULT) [address] [place] [address] Occult Blood, Fecalon 2021 Internal QC OK? Pass Normal [facility] Comment on above: Performed By: #### 1 916790186, 1481932, 59130918, 7602171 #### [facility] (DEFAULT) [address] [place] [address] Occult Bld Stl Positive Abnormal Negative [facility] Comment on above: Performed By: #### 1 345634136, 1253284, 67483604, 9654250 #### [facility] (DEFAULT) [address] [place] [address] Path Reviewon 08-07-2021 Pathology Test See Report Normal [facility] Comment on above: Result Comment: Sepa rate report to follow. Sent to [facility] for Path Review Performed By: #### 1 [id number], 2794529, 89282228, 7456600 #### [facility] (DEFAULT) [address] [place] [address] Retic Counton 08-07-2021 Reticulocyte 2.8 % High 0.5-1.5 [facility] Comment on above: Performed By: #### 1 764274141, 4468777, 56543889, 0176832 #### [facility] (DEFAULT) [address] [place] [address] 76626 TSH w/ Reflex to FT4on 08-07 TSH Qn 16.54 m[IU]/L High 0.45-5.33 [facility] Comment on above: Result Comment: Gene ral Population (males and non- females, aged 21-88) 0.45 - 5.33 Females, 1st Trimester 0.05 - 3.70 Females, 2nd Trimester 0.31 - 4.35 Females, 3rd Trimester 0.41 - 5.18 Performed By: #### 1 [id number], 7063360, 43411228, 9696779 #### [facility] (DEFAULT) [address] [place], [place] [address] Telemetry Stripson 2 Telemetry Strips [id number] Normal [facility] TnI HSon 08-07-2021 Troponin I High Sensitivity 16 pg/mL Critically abnormal <=15 [facility] Comment on above: Result Comment: Elev ated hsTnI 16 result called and read back ok to: SHILOH OBRIEN 2S at: 09:07:23 08/07/2021 by: TAPAN Male Baseline Delta 1Hr (Note pg/mL=ng/L) <20pg/mL 50-60% >20pg/mL 20% Female Baseline Delta 1Hr <15pg/mL 50-60% >15pg/mL 20% Other Baseline Delta 1Hr <18ng/mL 50-60% >18ng/mL 20% ([place] [employer] Guidelines February 2018) Performed By: #### 1 [id number], 5358525, 08823909, 8093558 #### [facility] (DEFAULT) [address] [place] [address] 53173 Troponin I High Sensitivity 19 pg/mL Critically abnormal <=15 [facility] Comment on above: Result Comment: Elev ated hsTnI 19 result called and read back ok to: DEMETRA DAS RN 2S at: 02:25:36 08/07/2021 by: SYBIL Male Baseline Delta 1Hr (Note pg/mL=ng/L) <20pg/mL 50-60% >20pg/mL 20% Female Baseline Delta 1Hr <15pg/mL 50-60% >15pg/mL 20% Other Baseline Delta 1Hr <18ng/mL 50-60% >18ng/mL 20% ([place] [employer] Guidelines February 2018) Performed By: #### 7 531027, 86036535, 9393238, [id number] #### [facility] (DEFAULT) [address] [place] [address] US Echocardiogram Completeon 08-07-2021 US Echocardiogram Complete [...] tricuspid regurgitation. Tim Harrington MD JOB #: [id number] bk Final Dictated by: Tim Harrington MD Dictated DT/TM: 08/08/21 8:50 Signed (Electronic Signature): Tim Harrington MD 08/09/21 8:25 am Normal [facility] Vit B12 Lvlon 08-07-2021 Vit B12 853 Normal 180-914 [facility] Comment on above: Performed By: #### 1 [id number], 7370453, 18757049, 0557517 #### [facility] (DEFAULT) [address] [place] [address] 93145 .Auto Diff 1on - Auto [place] % 7 % Normal 1-12 [facility] Comment on above: Performed By: #### 7 508416, 36038282, 5744032, [id number] #### [facility] (DEFAULT) [address] [place], [place] [address] Baso Abs# 0.0 x10 Normal 0.0-0.2 [facility] Comment on above: Performed By: #### 7 038920, 04261497, 9342569, [id number] #### [facility] (DEFAULT) [address] [place] [address] Basophils/100 WBC (Bld) 0.5 % Normal 0.2-2.0 [facility] Comment on above: Performed By: #### [id number] #### [facility] (DEFAULT) [address] [place] [address] Eos Abs# 0.0 x10 Normal 0.0-0.4 [facility] Comment on above: Performed By: #### 7 [id number], [id number] #### [facility] (DEFAULT) [address] [place] [address] Eosinophils/100 WBC (Bld) 0.7 % Low 0.9-4.0 [facility] Comment on above: Performed By: #### 7 [id number] #### [facility] (DEFAULT) [address] [place] [address] 79049 Lymph Abs# 1.2 x10 Low 1.3-2.9 [facility] Comment on above: Performed By: #### 7 053529, 49411428, 7847643, [id number] #### [facility] (DEFAULT) [address] [place] [address] 58245 Lymphocytes/100 WBC (Bld) 16 % Normal 14-48 [facility] Comment on above: Performed By: #### 7 759456, 52312838, 2674495, [id number] #### [facility] (DEFAULT) [address] [place] [address] [place] Abs# 0.5 x10 Normal 0.0-0.8 [facility] Comment on above: Performed By: #### 7 054595, 54356971, 5519588, [id number] #### [facility] (DEFAULT) [address] [place] [address] Neut Abs# 5.7 x10 Normal 1.5-9.2 [facility] Comment on above: Performed By: #### 7 890432, 33723441, 1869878, [id number] #### [facility] (DEFAULT) [address] [place] [address] Neutrophils/100 WBC (Bld) 76 % Normal 44-88 [facility] Comment on above: Performed By: #### 7 050773, 55737306, 5975186, [id number] #### [facility] (DEFAULT) [address] [place] [address] ABORhon 08-06-2021 ABO and Rh group Nom (Bld) Hx Check: Not Found Anti-A: 0 Anti-B: 0 Anti-D: 4+ DCon: 0 A1: 4+ B: 4+ ABORh Interp: O POS Invalid Interpretation Code [facility] Comment on above: Performed By: #### 7 063012, 70179202, 3165028, [id number] #### [facility] (DEFAULT) [address] [place] [address] ABORh Retypeon 08-06-2021 ABO and Rh group Nom (Bld) Ordered by Discern. Anti-A: 0 Anti-B: 0 Anti-D: 4+ DCon: 0 A1: 3+ B: 3+ ABORh Retype: O POS Invalid Interpretation Code [facility] Comment on above: Performed By: #### 7 456766, 69373572, 0422481, [id number] #### [facility] (DEFAULT) [address] [place] [address] ABSC Gelon 08-06-2021 ABSC Gel Negative Normal [facility] Comment on above: Performed By: #### 7 353747, 55793360, 5275338, [id number] #### [facility] (DEFAULT) [address] [place] [address] BNP.on 08-06-2021 Natriuretic peptide B (Bld) [Mass/Vol] 123.0 pg/mL High 0.0-100.0 [facility] Comment on above: Result Comment: BNP results greater than 100 pg/mL are considered abnormal and suggestive of patients with CHF. Higher BNP concentrations measured in the first 72 hours after an acute coronary syndorme are associated with an increased risk of , myocardial infarction, and CHF. Performed By: #### 7 112722, 75134931, 5083473, [id number] #### [facility] (DEFAULT) [address] [place] [address] Blood Bank IDon 08-06-2021 Blood Bank ID BBID: [id number] Invalid Interpretation Code [facility] Comment on above: Performed By: #### 7 895725, 64729744, 4409962, [id number] #### [facility] (DEFAULT) [address] [place] [address] CBC w/ Auto Diffon Erythrocyte distribution width (RBC) [Ratio] 19.4 % High 11.5-15.0 [facility] Comment on above: Performed By: #### 7 545487, 40914962, 5460851, [id number] #### [facility] (DEFAULT) [address] [place] [address] Hematocrit (Bld) [Volume fraction] 24.7 % Low 33.7-40.4 [facility] Comment on above: Performed By: #### 7 749101, 58080336, 9022040, [id number] #### [facility] (DEFAULT) [address] [place] [address] Hemoglobin (Bld) [Mass/Vol] 7.4 g/dL Low 11.3-15.9 [facility] Comment on above: Performed By: #### 7 359432, 86728099, 6443060, 6110843756 #### [facility] (DEFAULT) [address] [place] [address] Instr WBC 7.5 x10 Invalid Interpretation Code [facility] Comment on above: Performed By: #### 7 902355, 09697229, 9264099, [id number] #### [facility] (DEFAULT) [address] [place] [address] 89374 Man Diff? RBC Morph Only Normal [facility] Comment on above: Performed By: #### 7 678158, 91050186, 0583847, [id number] #### [facility] (DEFAULT) [address] [place] [address] 62993 MCH (RBC) [Entitic mass] 28 pg Normal 24-34 [facility] Comment on above: Performed By: #### 7 077541, 65504401, 5960263, [id number] #### [facility] (DEFAULT) [address] [place] [address] 15734 MCHC (RBC) [Mass/Vol] 30 g/dL Normal 26-37 [facility] Comment on above: Performed By: #### 7 220082, 48038958, 8948547, [id number] #### [facility] (DEFAULT) [address] [place] [address] 93644 MCV (RBC) [Entitic vol] 92 fL Normal 81-100 [facility] Comment on above: Performed By: #### 7 214174, 29565938, 0132739, [id number] #### [facility] (DEFAULT) [address] [place] [address] 69341 Platelet 533 x10 High 138-427 [facility] Comment on above: Performed By: #### 7 618411, 47221390, 5971311, [id number] #### [facility] (DEFAULT) [address] [place] [address] 61692 Platelet mean volume (Bld) [Entitic vol] 8.8 fL Normal 6.3-10.2 [facility] Comment on above: Performed By: #### 7 932756, 76483229, 0407548, [id number] #### [facility] (DEFAULT) [address] [place] [address] 85030 RBC 2.67 x10 Low 3.70-5.30 [facility] Comment on above: Performed By: #### 7 614708, 59551027, 2890643, 8153563652 #### [facility] (DEFAULT) [address] [place] [address] 01516 WBC 7.5 x10 Normal 3.5-10.5 [facility] Comment on above: Performed By: #### 7 397998, 57268291, 3061250, 8363963353 #### [facility] (DEFAULT) [address] [place] [address] 28760 CMP Standardon 08-06-2021 eGFR Non AA >60 Invalid Interpretation Code [facility] Comment on above: Performed By: #### 7 975513, 85145275, 3742179, [id number] #### [facility] (DEFAULT) [address] [place] [address] 79456 eGFR AA >60 Invalid Interpretation Code [facility] Comment on above: Result 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 Kidney Failure is indicated at less than 15 ml/min/1.73m2 Performed By: #### 7 017778, 83835395, 8057076, 7589444332 #### [facility] (DEFAULT) [address] [place] [address] 84237 Albumin [Mass/Vol] 1.6 g/dL Low 3.5-5.0 [facility] Comment on above: Performed By: #### 7 311661, 97191202, 7390333, 5290786031 #### [facility] (DEFAULT) [address] [place] [address] 53933 Albumin/Globulin [Mass ratio] 0.7 {ratio} Low 1.4-2.6 [facility] Comment on above: Performed By: #### 7 428493, 26644129, 9977825, [id number] #### [facility] (DEFAULT) [address] [place] [address] 47840 Alk Phos 52 IU/L Normal 32-91 [facility] Comment on above: Performed By: #### 7 796354, 95836889, 9949513, [id number] #### [facility] (DEFAULT) [address] [place] [address] 02525 ALT [Catalytic activity/Vol] 23.0 U/L Normal 14.0-54.0 [facility] Comment on above: Performed By: #### 7 336069, 61052601, 1035971, 1119579149 #### [facility] (DEFAULT) [address] [place] [address] 24310 Anion gap [Moles/Vol] 14.0 mmol/L Normal 5.0-19.0 [facility] Comment on above: Performed By: #### 7 878757, 52504072, 6155446, [id number] #### [facility] (DEFAULT) [address] [place] [address] 54897 AST [Catalytic activity/Vol] 27 U/L Normal 15-41 [facility] Comment on above: Performed By: #### 7 304032, 84940969, 7698934, [id number] #### [facility] (DEFAULT) [address] [place] [address] 34691 Bili Total 0.4 mg/dL Normal 0.3-1.2 [facility] Comment on above: Performed By: #### 7 529839, 50968063, 4750850, [id number] #### [facility] (DEFAULT) [address] [place] [address] 17805 Calcium [Mass/Vol] 6.1 mg/dL Low 8.9-10.3 [facility] Comment on above: Performed By: #### 7 248364, 95373278, 1537167, 4036771295 #### [facility] (DEFAULT) [address] [place] [address] 67224 Chloride [Moles/Vol] 108 mmol/L Normal 101-111 [facility] Comment on above: Performed By: #### 7 390102, 94284268, 9657410, [id number] #### [facility] (DEFAULT) [address] [place] [address] 19811 CO2 [Moles/Vol] 21 mmol/L Normal 21-32 [facility] Comment on above: Performed By: #### 7 903892, 03228004, 4874350, 6324895729 #### [facility] (DEFAULT) [address] [place] [address] 87315 Creatinine [Mass/Vol] 0.64 mg/dL Normal 0.60-1.30 [facility] Comment on above: Performed By: #### 7 579727, 08902812, 6731673, 9276758304 #### [facility] (DEFAULT) [address] [place] [address] 93088 Globulin (S) [Mass/Vol] 2.4 g/dL Normal 1.5-4.3 [facility] Comment on above: Performed By: #### 7 926897, 41813887, 5053172, 6026582226 #### [facility] (DEFAULT) [address] [place] [address] 95421 Glucose [Mass/Vol] 118.0 mg/dL Normal 74.0-118.0 [facility] Comment on above: Performed By: #### 7 441895, 72833913, 9282735, 9214751250 #### [facility] (DEFAULT) [address] [place] [address] 38659 Osmolality 277 mOsm/L Invalid Interpretation Code [facility] Comment on above: Performed By: #### 7 248802, 61621253, 9542196, 0062614038 #### [facility] (DEFAULT) [address] [place] [address] 21632 Potassium [Moles/Vol] 3.8 mmol/L Normal 3.6-5.1 [facility] Comment on above: Performed By: #### 7 770050, 18024808, 2704946, 0761761549 #### [facility] (DEFAULT) [address] [place] [address] 13956 Protein [Mass/Vol] 4.0 g/dL Low 6.5-8.1 [facility] Comment on above: Performed By: #### 7 878634, 91585501, 3027770, 3009975074 #### [facility] (DEFAULT) [address] [place] [address] 80935 Sodium [Moles/Vol] 139.0 mmol/L Normal 136.0-144.0 [facility] Comment on above: Performed By: #### 7 865897, 30850071, 2639049, 5753998067 #### [facility] (DEFAULT) [address] [place] [address] 70855 Urea nitrogen [Mass/Vol] 9 mg/dL Normal 8-26 [facility] Comment on above: Performed By: #### 7 507607, 35237945, 6057020, 7391367870 #### [facility] (DEFAULT) [address] [place] [address] 78249 Urea nitrogen/Creatinin e [Mass ratio] 14.0 mg/mg Normal 4.6-16.2 [facility] Comment on above: Performed By: #### 7 693018, 09716088, 7084732, 0431902518 #### [facility] (DEFAULT) [address] [place] [address] 74868 ED Note - Physicianon 2021 ED Note - Physician Patient: ASHVIN RENE Age: 65 years Sex: FEMALE : 1955 Associated Diagnoses: General medical; Anemia; Peripheral edema; GI bleed Author: EVERTON NEGRON Basic Information Time seen: Date & time 08/06/2021 17:19:00. History source: Patient, EMS. Arrival mode: Ambulance. History of Present Illness Patient is a 65-year-old female presenting to the emergency department from [facility] for evaluation of low blood pressure [...] not currently on diuretics secondary to her drug abuse treatment specialist stating that she should not take [...] -Pharynx is pink and dry NECK: -Supple ([id number]): non-tender. CARD: -Rate and rhythm: Regular -Edema: [...] was performed with patient's consent and nurse jewelry sales representative Jessica in the room the entire time -External rectal exam reveals no abnormalities -Digital rectal exam reveals no masses or polyps within reach of my finger, stool guaiac is positive Medical Decision Making 55-year-old female presenting to the emergency department for evaluation of low blood pressure taken manually at halfway facility of 90/45 and possibility of looking [...] at this time. According to paperwork from halfway facility patient CODE STATUS is full code Results review: Lab results : Lab Flowsheet 08/06/2021 18:55 EST Troponin I High Sensitivity 21 pg/mL CRIT 08/06/2021 1 (more content not included)... Normal [facility] ED Note-Nursingon 08-06-2021 ED Note-Nursing patient did not want to come in. patient is from [facility], patient has a history of hypotension and she takes midodrine regularly. she also took zofran. nurse states arms and legs are weeping. nurse states skin is yellow. patient has c diff. nurse at [facility] did a wrist bloodpressure and it was 90/44, ems did a blood pressure and it was 144/90. patient states [facility] is not giving me my blood pressure meds Normal [facility] Extra Pinkon 08-06-2021 Tube Collected Yes Invalid Interpretation Code [facility] Comment on above: Performed By: #### 7 046948, 38170420, 6618484, [id number] #### [facility] (DEFAULT) [address] [place] [address] Lactic Acidon 08-06-2021 Lactic Acid 16.2 mg/dL Normal 4.5-19.8 [facility] Comment on above: Performed By: #### 7 722033, 66429176, 4282458, 8431884689 #### [facility] (DEFAULT) [address] [place] [address] Lipaseon 08-06-2021 Lipase Level 20.0 IU/L Low 22.0-51.0 [facility] Comment on above: Performed By: #### 7 925616, 77016694, 7400939, 3595812860 #### [facility] (DEFAULT) [address] [place] [address] Magnesiumon 08-06-2021 Magnesium [Mass/Vol] 0.92 mg/dL Low 1.80-2.50 [facility] Comment on above: Performed By: #### 7 203425, 45635376, 6137696, 5053554327 #### [facility] (DEFAULT) [address] [place] [address] Morphologyon 08-06-2021 Aniso 1+ Normal [facility] Comment on above: Order Comment: Order added by Joselito. Performed By: #### 7 935089, 33848037, 3263197, [id number] #### [facility] (DEFAULT) [address] [place] [address] Hypochrom 1+ Normal [facility] Comment on above: Order Comment: Order added by Joselito. Performed By: #### 7 470214, 79412829, 8145968, [id number] #### [facility] (DEFAULT) [address] [place] [address] Microcyte 1+ Normal [facility] Comment on above: Order Comment: Order added by Joselito. Performed By: #### 7 452710, 34648955, 5792409, [id number] #### [facility] (DEFAULT) [address] [place] [address] RBC morphology finding Nom (Bld) See Morphology Normal [facility] Comment on above: Order Comment: Order added by Joselito. Performed By: #### 7 804572, 09308702, 9669502, [id number] #### [facility] (DEFAULT) [address] [place] [address] RBC.on 08-06-2021 RBC. # of Units: 2 RBC Indication: Symptom Anemia Additional Units?: No Date Needed: 08/06/21 Red Cell Status: RBC Ready Normal [facility] Comment on above: Performed By: #### 1 [id number], 4120908, 81336979, 2853888 #### [facility] (DEFAULT) [address] [place] [address] SARS-CoV-2 (COVID-19) PCRon 08-06-2021 Employed in healthcare? No Invalid Interpretation Code [facility] Comment on above: Performed By: #### 1 [id number], 9005363, 05240029, 1004998 #### [facility] (DEFAULT) [address] [place] [address] Group care resident? Yes Invalid Interpretation Code [facility] Comment on above: Performed By: #### 1 045921968, 3049887, 84773253, 3789258 #### [facility] (DEFAULT) [address] [place] [address] In ICU? Unknown Invalid Interpretation Code [facility] Comment on above: Performed By: #### 1 [id number], 7451207, 31383826, 6375609 #### [facility] (DEFAULT) [address] [place] [address] status? Not Invalid Interpretation Code [facility] Comment on above: Performed By: #### 1 [id number], 0303103, 93837191, 9807568 #### [facility] (DEFAULT) [address] [place] [address] SARS-CoV-2 (COVID-19) RNA JESSICA+probe Ql (Unsp spec) Detected Critically abnormal Not Detected [facility] Comment on above: Result Comment: Resu lts Called To MICAH Prince in ER By RR And Read Back For Confirmation On 08/06/2021 19:54:09 EST. Performed by PCR methodology. Performed By: #### 1 132698529, 4602667, 19175731, 5599916 #### [facility] (DEFAULT) [address] [place] [address] SARS-CoV-2 (COVID-19) RNA JESSICA+probe Ql (Unsp spec) Unknown Invalid Interpretation Code [facility] Comment on above: Performed By: #### 1 [id number], 6041652, 52441774, 8084821 #### [facility] (DEFAULT) [address] [place] [address] 02874 Symptomatic as defined by CDC? No Invalid Interpretation Code [facility] Comment on above: Performed By: #### 1 119081169, 8947707, 68282243, 9510796 #### [facility] (DEFAULT) [address] [place] [address] TnI HSon 08-06-2021 Troponin I High Sensitivity 21 pg/mL Critically abnormal <=15 [facility] Comment on above: Result Comment: Elev ated hsTnI 21 result called and read back ok to: GELY OBRIEN ER at: 19:26:45 08/06/2021 by: RRUPPERT Male Baseline Delta 1Hr (Note pg/mL=ng/L) <20pg/mL 50-60% >20pg/mL 20% Female Baseline Delta 1Hr <15pg/mL 50-60% >15pg/mL 20% Other Baseline Delta 1Hr <18ng/mL 50-60% >18ng/mL 20% ([place] [employer] Guidelines February 2018) Performed By: #### 7 034889, 93318943, 6734405, [id number] #### [facility] (DEFAULT) [address] [place] [address] 63516 Troponin I High Sensitivity 17 pg/mL Critically abnormal <=15 [facility] Comment on above: Result Comment: Elev ated hsTnI 17 result called and read back ok to: JESSICA AL RN IN ER at: 18:28:53 08/06/2021 by: RRUPPERT Male Baseline Delta 1Hr (Note pg/mL=ng/L) <20pg/mL 50-60% >20pg/mL 20% Female Baseline Delta 1Hr <15pg/mL 50-60% >15pg/mL 20% Other Baseline Delta 1Hr <18ng/mL 50-60% >18ng/mL 20% ([place] [employer] Guidelines February 2018) Performed By: #### 7 806569, 30812207, 0541578, [id number] #### [facility] (DEFAULT) [address] [place] [address] XR Chest 1 View Frontalon XR Chest [...] DO 08/06/21 8:49 pm Technologist: RANDALL Barton [facility] KNEE RIGHT 3 VWSon KNEE RIGHT 3 [facility] Department of Radiology [address] [place] [address] Patient Name: ASHVIN RENE : 1955 Sex: F Age: Race: White Pt. Location: Patient Status: O Ordered Date: 01/01/2021 3:20:00 PM Completed Date: 01/01/2021 03:21 PM Requesting Provider: TIARA VÁZQUEZ Attending Provider: TIARA VÁZQUEZ Report Copy To: Signs & Symptoms: M25.561 Pain in right knee I10 History: Comments: Evaluate Exam: KNEE RIGHT 3 [facility] KNEE RIGHT 3 VWS 01/01/2021 3:21 [...] change Electronically signed: Tawana Andrade. Transcribed by: [email or web address], User Resident: Electronically Signed by: TAWANA ANDRADE @ 01/01/2021 08:57 PM Normal [facility] Comment on above: Order Comment: Evalu ate Basic Metabolic Panlon 12-08 Anion gap [Moles/Vol] 13 mmol/L Normal 9-18 [facility] Comment on above: Performed By: #### B MP ####[facility], [place] [phone] Calcium [Mass/Vol] 7.1 mg/dL Low 8.5-10.2 [facility] Comment on above: Performed By: #### B MP ####[facility] [address], [place] [phone] Chloride [Moles/Vol] 107 mmol/L High 97-105 [facility] Comment on above: Performed By: #### B MP ####[facility] [address], [place] [phone] CO2 [Moles/Vol] 18 mmol/L Low 22-30 [facility] Comment on above: Performed By: #### B MP ####[facility] [address] [place], [place] [phone] Creatinine [Mass/Vol] 0.97 mg/dL High 0.58-0.96 [facility] Comment on above: Performed By: #### B MP ####[facility] [address] [place], [place] [phone] eGFR- Amer. >60 Normal [facility] Comment on above: Performed By: #### B MP ####[facility] [place], [place] [phone] eGFR-All Other Races 57 . Normal [facility] [...] actual GFR. Performed By: #### B MP ####[address] [phone] Glucose [Mass/Vol] 79 mg/dL Normal 74-99 [facility] Comment on above: Result Comment: The [place] Diabetes Association (ADA) provides guidance for cutoff [...] Standards of Medical Care in Diabetes 2016, [place] [employer] Association. Diabetes Care. 2016.39(Suppl 1). Performed By: #### B MP ####[facility] [place], [place] [phone] Potassium [Moles/Vol] 4.4 mmol/L Normal 3.7-5.1 [facility] Comment on above: Performed By: #### B MP ####[facility] [place], [place] [phone] Sodium [Moles/Vol] 138 mmol/L Normal 136-144 [facility] Comment on above: Performed By: #### B MP ####[address] [phone] Urea nitrogen [Mass/Vol] 15 mg/dL Normal 7-21 [facility] Comment on above: Performed By: #### B MP ####[address] [phone] Coronavirus 2019on SARS-CoV-2 (COVID-19) RNA JESSICA+probe Ql (Unsp spec) Nasopharyngeal Swab Normal [facility] Comment on above: Performed By: #### C OVID ####[address] [phone] SARS-CoV-2 (COVID-19) RNA JESSICA+probe Ql (Unsp spec) Negative for COVID19 (SARS CoV2) by RT-PCR or equivalent method. Normal Negative for COVID19 (SARS CoV2) by RT-PCR or equivalent method. [facility] Comment on above: Result Comment: This test was developed and its performance characteristics determined by [facility] [place]. This test has been authorized by FDA under an Emergency Use Authorization (EUA). This test has been validated in accordance with the FDA's Guidance Document Policy for Diagnostics Testing in Laboratories Certified to Perform High Complexity Testing under CLIA prior to Emergency use Authorization for Coronavirus Disease 2019 during the Public Health Emergency issued on September 11, 2019. Test performed by [facility], [facility] [place], [address] [place], [place] [address]. Performed By: #### C OVID ####[address] [phone] CBCon 12-07-2020 Absolute nRBC <0.01 Normal <0.01 [facility] Comment on above: Performed By: #### C MP, CBC, PT ####[address] [phone] Erythrocyte distribution width (RBC) [Ratio] 15.1 % High 11.5-15.0 [facility] Comment on above: Performed By: #### C MP, CBC, PT ####[address] [phone] Hematocrit (Bld) [Volume fraction] 33.1 % Low 36.0-46.0 [facility] Comment on above: Performed By: #### C MP, CBC, PT ####[place] [phone] Hemoglobin (Bld) [Mass/Vol] 10.0 g/dL Low 11.5-15.5 [facility] Comment on above: Performed By: #### C MP, CBC, PT ####[place] [phone] MCH 31.9 pG Normal 26.0-34.0 [facility] Comment on above: Performed By: #### C MP, CBC, PT ####[place] [phone] MCHC (RBC) [Mass/Vol] 30.2 g/dL Low 30.5-36.0 [facility] Comment on above: Performed By: #### C MP, CBC, PT ####[place] [address] [place] [phone] MCV (RBC) [Entitic vol] 105.8 fL High 80.0-100.0 [facility] Comment on above: Performed By: #### C MP, CBC, PT ####[place] [phone] Platelet mean volume (Bld) [Entitic vol] 9.6 fL Normal 9.0-12.7 [facility] Comment on above: Performed By: #### C MP, CBC, PT ####[place] [address], [place] [phone] Platelets (Bld) [#/Vol] 256 10*3/uL Normal 150-400 [facility] Comment on above: Performed By: #### C MP, CBC, PT ####[place] [address], [place] [phone] RBC (Bld) [#/Vol] 3.13 10*6/uL Low 3.90-5.20 [facility] Comment on above: Performed By: #### C MP, CBC, PT ####[place] [address], [place] [phone] WBC (Bld) [#/Vol] 5.83 10*3/uL Normal 3.70-11.00 [facility] Comment on above: Performed By: #### C MP, CBC, PT ####[place] [address], [place] [phone] Comp Metabolic Panelon 12-07 Albumin [Mass/Vol] 3.1 g/dL Low 3.9-4.9 [facility] Comment on above: Performed By: #### C MP, CBC, PT ####[place] [address], [place] [phone] ALP [Catalytic activity/Vol] 34 U/L Normal 34-123 [facility] Comment on above: Performed By: #### C MP, CBC, PT ####[place] [address], [place] [phone] ALT [Catalytic activity/Vol] 16 U/L Normal 7-38 [facility] Comment on above: Performed By: #### C MP, CBC, PT ####[place] [address], [place] [phone] Anion gap [Moles/Vol] 8 mmol/L Low 9-18 [facility] Comment on above: Performed By: #### C MP, CBC, PT ####[place] [address] [place] [phone] AST [Catalytic activity/Vol] 16 U/L Normal 13-35 [facility] Comment on above: Performed By: #### C MP, CBC, PT ####[place] [address] [place] [phone] Bilirubin [Mass/Vol] 0.2 mg/dL Normal 0.2-1.3 [facility] Comment on above: Performed By: #### C MP, CBC, PT ####[place] [address] [place] [phone] Calcium [Mass/Vol] 8.4 mg/dL Low 8.5-10.2 [facility] Comment on above: Performed By: #### C MP, CBC, PT ####[place] [address] [address] [place] [phone] Chloride [Moles/Vol] 111 mmol/L High 97-105 [facility] Comment on above: Performed By: #### C MP, CBC, PT ####[place] [address] [address] [place] [phone] CO2 [Moles/Vol] 21 mmol/L Low 22-30 [facility] Comment on above: Performed By: #### C MP, CBC, PT ####[place] [address] [address] [place] [phone] Creatinine [Mass/Vol] 1.16 mg/dL High 0.58-0.96 [facility] Comment on above: Performed By: #### C MP, CBC, PT ####[place] [address] [address] [phone] eGFR- Amer. 56 Normal [facility] Comment on above: Performed By: #### C MP, CBC, PT ####[place] [address] [address] [phone] eGFR-All Other Races 47 . Normal [facility] [...] Performed By: #### C MP, CBC, PT ####[facility], [place] [phone] Glucose [Mass/Vol] 96 mg/dL Normal 74-99 [facility] Comment on above: Result Comment: The [place] Diabetes Association (ADA) provides guidance for cutoff [...] Standards of Medical Care in Diabetes 2016, [place] Diabetes Association. Diabetes Care. 2016.39(Suppl 1). Performed By: #### C MP, CBC, PT ####[facility] [address], [place] [phone] Potassium [Moles/Vol] 4.7 mmol/L Normal 3.7-5.1 [facility] Comment on above: Performed By: #### C MP, CBC, PT ####[facility], [place] [phone] Protein [Mass/Vol] 5.0 g/dL Low 6.3-8.0 [facility] Comment on above: Performed By: #### C MP, CBC, PT ####[facility], [place] [phone] Sodium [Moles/Vol] 140 mmol/L Normal 136-144 [facility] Comment on above: Performed By: #### C MP, CBC, PT ####[facility] [place], [place] [phone] Urea nitrogen [Mass/Vol] 22 mg/dL High 7- [facility] Comment on above: Performed By: #### C MP, CBC, PT ####[place] [address] [place], [place] [phone] Protimeon 12-07-2020 PT INR 1.2 Normal 0.9-1.3 [facility] Comment on above: Result Comment: Jenny min K Antagonist (VKA) Therapeutic Range: INR 2 to 3 (Target INR of 2.5) Note: For patients treated with VKA drugs, such as warfarin, the [place] [employer] 2012 Guideline recommends [...] Performed By: #### C MP, CBC, PT ####[facility] [place], [place] [phone] PT Sec 12.3 sec Normal 9.7-13.0 [facility] Comment on above: Performed By: #### C MP, CBC, PT ####[place] [address] [place], [place] [phone] Mirella 12-06-2020 JEFFREY Telephone (BIBI) -- ASHVIN RENE ([id number]) 1955 F Date Time Provider Department 12/06/20 [...] education topics: Arrival time/NPO Status/Medications/Travel INSTRUCTED ON AA Party RESTRICTIONS - AWARE TO HAVE RESEARCH EXECUTIVE Instructions/Restrictions Patient/Family Response Evaluation: Verbalizes understanding Follow [...] 12/06/2020 Noted Resolved Coronary artery disease of [place] artery of otilio*11/24/2020 S/P CABG (coronary artery bypass graft) [Z95.1] 11/24/2020 Pure hypercholesterolemia [E78.00] 11/24/2020 Type 2 diabetes mellitus without complication, *11/24/2020 Fatigue [R53.83] 11/24/2020 Encounter Status:Closed by COTY MORALES RN on 12/06/[address] [facility] JEFFREY Telephone (DIOMEDES) -- ASHVIN RENE ([id number]) 1955 F Date Time Provider Department 11/28/20 [...] 11/29/2020 9:46 AM Signed Faxed orders to [phone] Kd Solitario 11/29/2020 12:22 PM Signed Patient called back and gave alternative fax # [phone] She would also like cath to be scheduled on 12/07. Called scheduling to get it added on Allergies As of Date: 11/28/2020 Noted Allergy Reaction CODEINE 11/24/2020 1 - Mental Status Change 4 - Hives Date Reviewed: 11/24/2020 Reviewed by: Demetra Guadalupe RN - Fully Assessed Reason for Visit: Patient Update [1234] Primary Visit Diagnosis:Coronary artery disease of [place] artery of [place] heart with stable angina pectoris (HCC) [I25.118] Order(s):CARDIAC RESIDENCE MANAGER ORDER [2267525] Order #: [id number]: 1 INTERMEDIATE RAPID COVID [SQITCOVD] Order #: [id number] FUTURE COMP METABOLIC PANEL [SQCMP] Order #: [id number] FUTURE CBC [SQCBC] Order #: [id number] FUTURE LIPID PANEL BASIC [SQLIPB] Order #: [id number] FUTURE CK CREATINE KINASE [SQCK] Order #: [id number] FUTURE ECG COMPLETE [ECG01] Order #: [id number] FUTURE Prescriptions as of 11/28/2020 Sig: ACETAMINOPHEN [...] 11/28/2020 Noted Resolved Coronary artery disease of [place] artery of otilio*11/24/2020 S/P CABG (coronary artery bypass graft) [Z95.1] 11/24/2020 Pure hypercholesterolemia [E78.00] 11/24/2020 Type 2 diabetes mellitus without complication, *11/24/2020 Fatigue [R53.83] 11/24/2020 Encounter Status:Closed by NAY JOSEPH on 11/29/20 [facility] CNOVon 11-24-2020 CNOV Office Visit (CATHMN ) -- ASHVIN RENE ([id number]) 1955 F Date Time Provider Department 11/24/20 9:30 AM NAY JOSEPH During your visit today, we recorded the following information about you: Pulse Respiration Blood pressure Weight 91/minute 20/minute 108/63 64.3 kg Height 1.6 m A. Nay Joseph MD 11/29/2020 7:54 AM Signed [facility] Department of Cardiovascular Medicine SECTION OF INTERVENTIONAL CARDIOLOGY OUTPATIENT VISIT DATE November 23, 2020 OUTPATIENT VISIT TYPE NEW PRIMARY CARE PHYSICIAN: Tushar Solano Jr, DO ([facility]) [address] [facility] [address] [address] [place] [address] REFERRING PHYSICIAN: Waqas Mabry MD [address] [facility] [address] CHIEF COMPLAINT: No chief complaint on file. [...] resolved after CABG) 2015 CVA and (?) HI 05/24/16 Echo ? Normal left ventricular end-diastolic [...] 11-22-2020 CNPN Telephone (CATHMN) -- ASHVIN RENE ([id number]) 1955 F Date Time Provider Department 11/22/20 NAY JOSEPH During your visit today, we recorded the following information about you: Kd Solitario 11/22/2020 3:54 PM Signed Urgent records request faxed to [phone] Allergies As of Date: 11/22/2020 (Not on File) Date Reviewed: Never Reviewed Reason for Visit: Request Outside Medical Records [[id number]] Problem List As Of Date: 11/22/2020 (None) Encounter Status:Closed by KD SOLITARIO on 11/22/20 [facility] 11-09-2020 CNPN Telephone (REFPHY) -- ASHVIN RENE ([id number]) 1955 F Date Time Provider Department 11/09/20 NO ONE (HISTORICAL) REFPHY During your visit today, we recorded the following information about you: Ashvin Quezada [facility] 11/09/2020 10:11 AM Signed Patient: Ashvin Clinton Date of : 1955 Patient phone number: [phone] Referring Provider for the encounter: Dr Waqas Mabry Requesting Provider: Cardiology Reason for requesting visit (RFV/signs and symptoms/diagnosis): 2nd Opinion - Severe CAD Person calling: caregiver: ERIC Return call to: self Medical Records/Insurance Card scanned into [employer]: Yes Comments: N/A Allergies As of Date: 11/09/2020 (Not on File) Date Reviewed: Never Reviewed Reason for Visit: External Referrals/resources [909] Problem List As Of Date: 11/09/2020 (None) Encounter Status:Closed by ASHVIN DIAZ on 11/09/20 Normal [facility] XA-CARDIAC CATHETERIZATION I MPORTon 10-25-2020 XA-CARDIAC CATHETERIZATION IMPORT Images were obtained outside of [facility] [id number] Normal [facility] Vital Signs Date Time Vital Sign Value Performing Clinician Facility 10-15-2023 14:00-0400 Heart rate 80 /min Jonathan Malas DO Work Phone: [facility] [place] [employer] [facility] 10-15-2023 14:00-0400 Respiratory rate 15 /min Jonathan Malas DO Work Phone: [facility] [place] [employer] [facility] 10-15-2023 14:00-0400 SaO2% (BldA) [Mass fraction] 95 % Jonathan Malas DO Work Phone: [facility] [place] [employer] [facility] 10-15-2023 12:15-0400 Body temperature 98.6 [degF] Jonathan Malas DO Work Phone: [facility] [place] [employer] [facility] 10-15-2023 12:15-0400 Diastolic blood pressure 78 mm[Hg] Greggem Malas DO Work Phone: [facility] [place] [employer] [facility] 10-15-2023 12:15-0400 Systolic blood pressure 121 mm[Hg] Jonathan Malas DO Work Phone: [facility] [place] [employer] [facility] 10-14-2023 05:00-0400 Body mass index (BMI) [Ratio] 27.66 kg/m2 Jonathan Malas DO Work Phone: [facility] [place] [employer] [facility] 10-14-2023 05:00-0400 Body weight 68.6 kg Jonathan Malas DO Work Phone: [facility] [place] [employer] [facility] 10-13-2023 11:21-0400 Body height 157.5 cm Jonathan Malas DO Work Phone: [facility] [place] [employer] [facility] 08-21-2023 14:09-0500 Body temperature 97.9 [degF] Dwain Mills DPM Work Phone: [facility] 08-21-2023 14:09-0500 Diastolic blood pressure 62 mm[Hg] Dwain Mills DPM Work Phone: [facility] 08-21-2023 14:09-0500 Heart rate 84 /min Dwain Mills DPM Work Phone: [facility] 08-21-2023 14:09-0500 Systolic blood pressure 145 mm[Hg] Dwain Mills DPM Work Phone: [facility] 08-06-2023 16:00-0500 Diastolic blood pressure 65 mm[Hg] [facility] 08-06-2023 16:00-0500 Heart rate 80 /min [facility] 08-06-2023 16:00-0500 Respiratory rate 16 /min [facility] 08-06-2023 16:00-0500 SaO2% (BldA) [Mass fraction] 100 % [facility] 08-06-2023 16:00-0500 Systolic blood pressure 107 mm[Hg] [facility] 08-06-2023 12:48-0500 Inhaled oxygen flow rate 3 L/min [facility] 08-06-2023 11:08-0500 Body height 157.48 cm [facility] 08-06-2023 11:08-0500 Body weight 63.04 kg [facility] 08-04-2023 10:45-0500 Body height 160.66 cm Jolie De Luna Other [facility] [employer] Other 08-04-2023 10:45-0500 Body mass index (BMI) [Ratio] 24.43 kg/m2 Jolie De Luna Other [employer] [facility] [employer] Other 08-04-2023 10:45-0500 Body temperature 97.8 [degF] Jolie De Luna Other [employer] Other 08-04-2023 10:45-0500 Body weight 63.05 kg Jolie De Luna Other [employer] Other 08-04-2023 10:45-0500 Diastolic blood pressure 64 mm[Hg] Jolie De Luna Other [employer] Other 08-04-2023 10:45-0500 SaO2% (BldA) [Mass fraction] 98 % Jolie De Luna Other [employer] Other 08-04-2023 10:45-0500 Systolic blood pressure 110 mm[Hg] Jolie De Luna Other [employer] Other 06-25-2023 11:16-0500 Body height 157.5 cm Norman Braga MD Work Phone: [employer] 06-25-2023 11:16-0500 Body mass index (BMI) [Ratio] 25.79 kg/m2 Norman Braga MD Work Phone: [employer] 06-25-2023 11:16-0500 Body temperature 98.2 [degF] Norman Braga MD Work Phone: [employer] 06-25-2023 11:16-0500 Body weight 63.96 kg Norman Braga MD Work Phone: [employer] 05-20-2022 11:05-0500 Body height 160.66 cm Virginia Marti Other [employer] Other 05-20-2022 11:05-0500 Body mass index (BMI) [Ratio] 21.09 kg/m2 Virginia Marti Other [employer] Other 05-20-2022 11:05-0500 Body temperature 97.3 [degF] Virginia Marti Other [employer] Other 05-20-2022 11:05-0500 Body weight 54.43 kg Virginia Marti Other [employer] Other 05-20-2022 11:05-0500 Diastolic blood pressure 66 mm[Hg] Virginia Marti Other [employer] Other 05-20-2022 11:05-0500 Respiratory rate 18 /min Virginia Marti Other [employer] Other 05-20-2022 11:05-0500 SaO2% (BldA) [Mass fraction] 100 % Virginia Marti Other [employer] Other 05-20-2022 11:05-0500 Systolic blood pressure 112 mm[Hg] Virginia Marti Other [employer] Other 04-12-2021 15:45-0400 Body height 160.66 cm Antonio Julio Other [employer] Other 04-12-2021 15:45-0400 Body mass index (BMI) [Ratio] 25.3 kg/m2 Antonio Kim Other [employer] Other 04-12-2021 15:45-0400 Body weight 65.32 kg Antonio Kim Other [employer] Other 09-09-2019 10:00-0500 BP Diastolic 80 mm[Hg] [facility] 09-09-2019 10:00-0500 BP Systolic 138 mm[Hg] [facility] 09-09-2019 10:00-0500 Pulse (Heart Rate) 80 /min [facility] [place] [facility] 09-09-2019 10:00-0500 Pulse Oximetry 96 % Tushar Russ [facility] 09-09-2019 10:00-0500 Respiratory Rate 16 /min [facility] 09-09-2019 08:20-0500 BMI (Body Mass Index) 25 kg/m2 [facility] 09-09-2019 08:20-0500 Body weight 63.95 kg [facility] 09-09-2019 08:20-0500 Height 160.02 cm [facility] 09-09-2019 07:10-0500 Body Temperature 97.9 [degF] Tushar [facility] 08-12-2019 09:55-0500 BP Diastolic 73 mm[Hg] [facility] 08-12-2019 09:55-0500 BP Systolic 132 mm[Hg] [facility] 08-12-2019 09:55-0500 Pulse (Heart Rate) 86 /min [facility] [place] [facility] 08-12-2019 09:55-0500 Pulse Oximetry 97 % [facility] 08-12-2019 09:55-0500 Respiratory Rate 16 /min [facility] 08-12-2019 08:47-0500 BMI (Body Mass Index) 25.2 kg/m2 [facility] 08-12-2019 08:47-0500 Body weight 63.5 kg [facility] 08-12-2019 08:47-0500 Height 158.75 cm [facility] 08-12-2019 07:27-0500 Body Temperature 98.8 [degF] [facility] Encounters Encounter Date Encounter Type Care Provider Facility Start: 02-17-2024 End: 02-17-2024 ambulatory TRUNG FLORES Not Available Start: 10-23-2023 End: 10-23-2023 ambulatory MARIAMA INGRAM [facility] Start: 10-13-2023 ambulatory TUSHAR SOLANO [facility] Start: 10-13-2023 End: 10-15-2023 [facility] Start: 10-12-2023 End: 10-15-2023 Evaluation and management of inpatient Jonathan Pizarro DO Work Phone: [facility] - GEN 5 ICU Comment on above: Decompensated heart failure ([facility]) (Primary Dx); NSTEMI (non-ST elevated myocardial infarction) ([facility]-HCC) Start: 10-12-2023 Documentation procedure Jonathan Pizarro DO Work Phone: [facility] [place] Account Retention Representative Sign In Start: 10-06-2023 End: 10-07-2023 Orders Only Cheikh Rodrigez 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) Start: 09-09-2023 End: 09-09-2023 ambulatory DWAIN MILLS Not Available Start: 08-22-2023 Telephone encounter Alida Holder [facility] Comment on above: Santyl Start: 08-21-2023 Bamboo flowsheet Dwain moore DPM Work Phone: [facility] Start: 08-21-2023 Bamboo flowsheet Dwain Rea tz DPM Work Phone: [facility] Start: 08-21-2023 End: 08-21-2023 Office outpatient visit 15 minutes Dwain Mills DPM Work Phone: [facility] Comment on above: 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); Gangrene (CMS/HCC); Pain in toe of right foot; Arteriosclerosis of arteries of extremities (CMS/HCC) Start: 08-21-2023 End: 08-21-2023 ambulatory DWAIN MILLS Not Available Start: 08-07-2023 End: 08-07-2023 ambulatory DWAIN MILLS Not Available Start: 08-06-2023 End: 08-06-2023 ambulatory Tushar Solano Facility:[facility] Start: 08-06-2023 Non-patient / Non-visit [facility] Work Phone: Start: 08-04-2023 End: 08-04-2023 ambulatory Jolie De Luna Other [employer] Other Start: 08-04-2023 FQ visit new patient Jolie harkins [facility] Start: 07-24-2023 End: 07-24-2023 ambulatory DWAIN MILLS Not Available Start: 06-25-2023 ambulatory NORMAN BRAGA [facility] Start: 06-25-2023 End: 06-25-2023 Office outpatient new 45 minutes Norman Braga MD Work Phone: [facility] Comment on above: Left knee pain, unsp ecified chronicity (Primary Dx) Start: 06-25-2023 End: 06-25-2023 Subsequent hospital visit by physician Norman Braga MD Work Phone: [facility] Start: 10-15-2022 End: 10-16-[address] TUSHAR SOLANO Facility:[facility] Start: 07-16-2022 End: 07-17-[address] TUSHAR SOLANO Facility:[facility] Start: 06-14-2022 End: 06-15-[address] TUSHAR SOLANO Facility:[facility] Start: 05-20-2022 Office outpatient vi sit 15 minutes Virginia Marti [facility] Start: 05-20-2022 End: 05-20-2022 ambulatory JR Tushar Solano Work Phone: [facility] Work Phone: Start: 05-20-2022 End: 05-20-2022 Patient encounter procedure JR Tushar Solano Work Phone: [facility] Start: 06-11-2021 End: 06-11-2021 ambulatory Antonio Kim Other [employer] Other Start: 06-11-2021 Telephone encounter Antonio Cardenas ck [facility] Start: 04-12-2021 Office outpatient ne w 45 minutes Antonio Kim [facility] Start: 11-09-2020 End: 11-09-2020 Telephone encounter No One (Historical) Referring Physician Comment on above: External Referrals/r esources Start: 09-09-2019 End: 09-09-2019 Admission to [facility] Start: 08-12-2019 End: 08-12-2019 Admission to [facility] Procedures Date Procedure Procedure Detail Performing Clinician Start: 10-23-2023 Follow-up visit Follow-up MARIAMA Víctor BETTSE Start: 10-15-2023 Assay of magnesium Nikolas Rodriguez CLINICAL STAFF RN-WEATHERIZATION OPERATIONS MANAGER Work Phone: Start: 10-15-2023 Radiologic exam chest single view Kallie Roman MD Work Phone: Start: 10-15-2023 Basic metabolic panel calcium total Hazem Malas DO Work Phone: Start: 10-14-2023 Calcium ionized Parul Holder Jeb CLINICAL STAFF RN-WEATHERIZATION OPERATIONS MANAGER Work Phone: Start: 10-14-2023 Lipid panel Kristyn Avila MD Work Phone: Start: 10-14-2023 Calcium ionized Parul Holder Ejb CLINICAL STAFF RN-WEATHERIZATION OPERATIONS MANAGER Work Phone: Start: 10-14-2023 Cardiac catheterization Obdulia Grove MD Work Phone: Start: 10-14-2023 Basic metabolic panel calcium total Parul Holder Jeb CLINICAL STAFF RN-WEATHERIZATION OPERATIONS MANAGER Work Phone: Start: 10-14-2023 Ecg routine ecg w/least 12 lds trcg only w/o i&r Parul Holder Jeb CLINICAL STAFF RN-WEATHERIZATION OPERATIONS MANAGER Work Phone: Start: 10-13-2023 Calcium ionized Parul R Jeb CLINICAL STAFF RN-WEATHERIZATION OPERATIONS MANAGER Work Phone: Start: 10-13-2023 Heparin assay Parul Holder Jeb CLINICAL STAFF RN-WEATHERIZATION OPERATIONS MANAGER Work Phone: Start: 10-13-2023 Calcium ionized Hazem Malas DO Work Phone: Start: 10-13-2023 Echo tthrc r-t 2d w/wom-mode compl spec&colr d Parul Hassann CLINICAL STAFF RN-WEATHERIZATION OPERATIONS MANAGER Work Phone: Start: 10-13-2023 Potassium serum plasma/whole blood Jonathan Pizarro DO Work Phone: Start: 10-13-2023 Basic metabolic panel calcium total Parul Gallo Jeb CLINICAL STAFF RN-WEATHERIZATION OPERATIONS MANAGER Work Phone: Start: 10-13-2023 Basic metabolic panel calcium total Parul [place] CLINICAL STAFF RN-WEATHERIZATION OPERATIONS MANAGER Work Phone: Start: 10-13-2023 Ecg routine ecg w/least 12 lds trcg only w/o i&r Parul [place] CLINICAL STAFF RN-WEATHERIZATION OPERATIONS MANAGER Work Phone: Start: 10-12-2023 Gluc bld gluc [...] Td Vaccines (2 - Td or Tdap) [facility] Start: 05-20-2032 Tetanus vaccination TETANUS [facility] Start: 05-19-2024 Adult BMI Screening Adult BMI Screen ing [facility] Start: 05-19-2024 Tobacco Screening Tobacco Screening [facility] Start: 11-13-2023 End: 11-13-2023 Patient encounter procedure 11/13/2023 2:30 PM EDT Office Visit [facility] [address] [place] [phone] Bernice Davis MD [address] [place] [address] [facility] Start: 10-16-2023 End: 10-16-2023 Patient encounter procedure 10/16/2023 1:30 PM EDT Office Visit [facility] [address] [facility] [place] [address] Genet Small, DO [address] [facility] [place] [address] [facility] Start: 09-09-2023 End: 09-09-2023 Patient encounter procedure 09/09/2023 10:15 AM EST Office Visit [facility] [address] [place] [phone] Dwain Mills, DPM [address] [place] [address] [facility] Start: 08-21-2023 End: 08-21-2023 Patient encounter procedure 08/21/2023 2:00 PM EST Office Visit [facility] [address] [place] [phone] Dwain Mills, DPM [address] [place] [address] Arrived [facility] Comment on above: Arrived Start: 08-06-2023 [facility] Start: 03-14-2023 Influenza vaccination [facility] Start: 2018 Fall Risk Screening Fall Risk Screen ing [facility] Start: 2018 Pneumococcal vaccination PNEUM OCOCCAL VACCINE SERIES (2 - PCV) [facility] Start: 11-20-2003 Administration of varicella zoster vaccine Zoster (Shingles) Vaccine (1 of 2) [facility] Start: 11-20-2003 Zoster vaccine hzv l pool for subcutaneous use ZOSTER (SHINGLES) VACCINE (1 of 2) [facility] Start: 1998 Screening for malign ant neoplasm of colon COLORECTAL CANCER SCREENING DISCUSSION [facility] Start: 1993 Lipid panel LIPID SCREENING [facility] Start: 1993 Screening for malign ant neoplasm of breast MAMMOGRAM SCREENING DISCUSSION [facility] Start: 1974 Screening for malign ant neoplasm of cervix CERVICAL CANCER SCREENING DISCUSSION [facility] Start: 1972 Third diphtheria, te tanus and acellular pertussis (DTaP) vaccination TDAP (ADULT) [facility] Start: 11-20-1971 Adult BMI Follow Up Plan Adult BMI Follow Up Plan [facility] Start: 1965 Depression Screening Depression Scre ening [facility] Start: 05-22-1954 COVID-19 VACCINE (#1) COVID-19 VACCI NE (#1) [facility] Start: 1955 Hepatitis C screening HEPATITI S C VIRUS SCREENING [facility] Start: 1955 Medicare Annual Well ness Visit Medicare Annual Wellness Visit [facility] Start: 1955 Screening for osteoporosis DEXA SCAN DISCUSSION [facility] Start: 1955 Thyroid stimulating hormone measurement TSH [facility] Patient Education Atherectomy - Angioplasty of a Noncoronary Vessel Arteriogram (DC) [facility] Work Phone: Patient referral [facility] Radiography for bone length studies XR BONE LENGTH STUDY Imaging Routine Left knee pain, unspecified chronicity 06/25/2023 10:28 AM [facility] Work Phone: XR Knee - left 4 Views XR KNEE L EFT 4+ VIEWS Imaging Routine Left knee pain, unspecified chronicity 06/25/2023 10:28 AM [facility] Immunizations Immunization Date Immunization Notes Care Provider Joe silva 05-20-2022 tetanus and diphther ia toxoids, adsorbed, preservative free, for adult use (5 Lf of tetanus toxoid and 2 Lf of diphtheria toxoid) Virginia Marti Other [facility] 05-21-2018 Seasonal trivalent influenza vaccine, adjuvanted, preservative free Cheikh Rain [facility] 05-21-2018 influenza virus vaccine, unspecified formulation Norman Braga MD Work Phone: [facility] 09-12-2014 pneumococcal polysaccharide vaccine, 23 valent Jaclin Rain [facility] NEGATED: Highlighted row has not occurred!02-16-2023 pneumococcal conjugate vaccine, 13 valent Jaclin Rain [facility] Payers Date Payer Category Payer Self-pay [id number] 2022 Medicare [id number] 2020 Unknown [employer]LE[employer] [id number] 2020-Present Indemnity [id number] 2018 Medicare MEDICARE MEDICAR E A AND B [id number] 2018-Present [place] [id number] [id number] 1959 Medicare [id number] 1959 Unknown [id number] 1959 Unknown [id number] 1953 Unknown [id number] 2.16.840.1.021913.3.579.2.593 1953 Unknown [id number] 2.16.840.1.529138.3.579.2.593 1953 Unknown [id number] 2.16.840.1.863794.3.579.2.593 1953 Unknown [id number] 2.16.840.1.447673.3.579.2.983 1953 Unknown [id number] 2.16.840.1.852734.3.579.2.983 1953 Unknown [id number] 2.16.840.1.476242.3.579.2.128 6 1953 Unknown [id number] 2.16.840.1.155054.3.579.2.128 6 1953 Unknown [id number] 2.16.840.1.011671.3.579.2.128 6 1953 Unknown [id number] 2.16.840.1.939438.3.579.2.128 6 1953 Unknown [id number] 2.16.840.1.309236.3.579.2.125 9 1953 Unknown [id number] 2.16.840.1.505972.3.579.2.125 9 1953 Unknown [id number] 2.16.840.1.768123.3.579.2.125 9 1953 Unknown [id number] 2.16.840.1.470631.3.579.2.125 9 1953 Unknown [id number] 2.16.840.1.879106.3.579.2.125 9 Unknown [id number] Unknown [id number] 2.16.840.1.592376.19 Unknown [id number] 2.16.840.1.173384.3.579.2.531 Social History Date Type Detail Facility Start: 06-18-2016 End: 09-09-2019 Tobacco smoking status NHIS Never smoked tobacco (finding) [facility] Start: 1955 Sex Assigned At Female F [facility] Start: 1955 Sex Assigned At Not on file [facility] Start: 08-24-2020 End: 06-25-2023 Sex Assigned At [facility] Other Start: 06-18-2016 End: 06-25-2023 Tobacco use and exposure [facility]ok[facility] Start: 08-24-2020 End: 06-25-2023 History of Social function [employer] [facility] Start: 08-07-2023 End: 08-21-2023 Alcohol intake Lifetime non-drinker (finding) [facility] Start: 05-19-2023 End: 10-15-2023 Alcohol intake Current non-drinker of alcohol (finding) [employer] Child[facility] Unknown PT [place] [facility] Has the [employer], [employer], [employer], or water company threatened to shut off services in your home in past 12Mo No [employer] How often to you hav e a drink containing alcohol? Never [employer] Medical Equipment Procedure Code Equipment Code Equipment Origin al Text Equipment Identifier Dates Phacoemulsification of cataract with intraocular lens implantation ()[id number] FDA Start: 08-12-2019 Phacoemulsification of cataract with intraocular lens implantation Posterior-chamber intraocular lens, pseudophakic ()[id number] FDA Start: 09-09-2019 Loop Recorder Karina schuler Mdtr - [id number] - [id number] Start: 05-24-2016 System Cor Stnt 3.0mm X 12mm 145cm [employer] Harry - [id number] ()[id number], [id number] FDA Start: 02-15-2023 Goals Date Patient [...] Description: INTERVENTIONS: 1. Encourage patient or legal sales representative health insurance to report early pain and ask for [...] per policy 9. Teach patient or legal sales representative health insurance interventions for comforting Outcome: Progressing Note: Evaluation [...] at the bedside 7. Instruct patient/ patient sales representative health insurance about use of safety devices 8. Include patient/ patient sales representative health insurance in decisions related to safety Outcome: Progressing [...] hygiene technique 7. Identify and instruct patient/patient sales representative health insurance in use of appropriate isolation precautions for identified infection/symptoms 8. Provide and discuss with patient/patient sales representative health insurance on educational MDRO sheet 9. Encourage and monitor nutritional status daily and consult flue blower if indicated 10. Implement neutropenic guidelines as needed 11. Review exposure to history of communicable disease and recent travel history on admission 12. Encourage annual influenza vaccine 13. Encourage pneumonia vaccine Outcome: Progressing Note: Evaluation of progress towards goal: Patient remains free from infection due to hospitalization. Patient remains afebrile at this time. Problem: Knowledge Deficit Goal: Patient/patient sales representative health insurance demonstrates understanding of disease process, treatment plan, medications, and discharge instructions Description: INTERVENTIONS 1. Complete learning assessment and assess knowledge base 2. Provide teaching at level of understanding 3. Provide teaching via preferred learning method(s) Outcome: Progressing Note: Evaluation of progress towards goal: Patient demonstrates understanding of plan of care and treatment plan at this time. [facility] 10-15-2023 Miscellaneous Notes Problem: Pain Goal: Patient goal is pain score less than 4, able to rest, and participant in treatment plan as appropriate Description: INTERVENTIONS: 1. Encourage patient or legal sales representative health insurance to report early pain and ask for [...] per policy 9. Teach patient or legal sales representative health insurance interventions for comforting Outcome: Progressing Note: Evaluation [...] at the bedside 7. Instruct patient/ patient sales representative health insurance about use of safety devices 8. Include patient/ patient sales representative health insurance in decisions related to safety Outcome: Progressing [...] hygiene technique 7. Identify and instruct patient/patient sales representative health insurance in use of appropriate isolation precautions for identified infection/symptoms 8. Provide and discuss with patient/patient sales representative health insurance on educational MDRO sheet 9. Encourage and monitor nutritional status daily and consult flue blower if indicated 10. Implement neutropenic guidelines as needed 11. Review exposure to history of communicable disease and recent travel history on admission 12. Encourage annual influenza vaccine 13. Encourage pneumonia vaccine Outcome: Progressing Note: Evaluation of progress towards goal: Patient remains free from infection due to hospitalization. Patient remains afebrile at this time. Problem: Knowledge Deficit Goal: Patient/patient sales representative health insurance demonstrates understanding of disease process, treatment plan, [...] Description: INTERVENTIONS: 1. Encourage patient or legal sales representative health insurance to report early pain and ask for [...] per policy 9. Teach patient or legal sales representative health insurance interventions for comforting Outcome: Progressing Note: Evaluation [...] at the bedside 7. Instruct patient/ patient sales representative health insurance about use of safety devices 8. Include patient/ patient sales representative health insurance in decisions related to safety Outcome: Progressing [...] hygiene technique 7. Identify and instruct patient/patient sales representative health insurance in use of appropriate isolation precautions for identified infection/symptoms 8. Provide and discuss with patient/patient sales representative health insurance on educational MDRO sheet 9. Encourage and monitor nutritional status daily and consult flue blower if indicated 10. Implement neutropenic guidelines as needed 11. Review exposure to history of communicable disease and recent travel history on admission 12. Encourage annual influenza vaccine 13. Encourage pneumonia vaccine Outcome: Progressing Note: Evaluation of progress towards goal: Pt afebrile and no outward signs of infection during shift. Problem: Knowledge Deficit Goal: Patient/patient sales representative health insurance demonstrates understanding of disease process, treatment plan, [...] develop effective communication strategies 4. Include patient/patient sales representative health insurance in decisions related to communication Outcome: Progressing [...] Collaborate with ancillary departments 14. Include patient/patient sales representative health insurance in decisions related to anxiety Outcome: Progressing [...] to assist with coping 8. Involve patient's sales representative health insurance in care Outcome: Progressing Note: Evaluation of [...] supplement as ordered 13. Collaborate with clinical flue blower 14. Include patient/ patient's sales representative health insurance in decisions related to nutrition Outcome: Progressing [...] Score of =/> 25 or indicated by [facility] Assessment Goal: Patient should be free from fall Description: Interventions: 1. Gordon to environment 2. Hourly rounds addressing the [...] non-skid footwear 11. Teach patient and patient sales representative health insurance to maintain environment for safety and engage [...] (cane, walker) within reach 19. Request patient sales representative health insurance bring adaptive equipment/mobility aids from home or obtain and provide as needed 20. Consult pharmacy regarding effects of med's affecting mobility, cognition, and alternatives 21. Obtain physician order for PT if risk factors associated with mobility are present 22. Obtain physician order for OT as appropriate 23. Utilize diversional activities 24. Educate patient and patient sales representative health insurance how to maintain a safe environment during visitation times (notify nurse prior to leaving bedside) 25. Consider appropriateness of medical or non-medical insurance collector 26. Set up voiding schedule as appropriate (every 2 hours) Outcome: Progressing Note: Evaluation of progress towards goal: No signs of falls during shift. Problem: Pain Goal: Patient goal is pain score less than 4, able to rest, and participant in treatment plan as appropriate Description: INTERVENTIONS: 1. Encourage patient or legal sales representative health insurance to report early pain and ask for [...] per policy 9. Teach patient or legal sales representative health insurance interventions for comforting Outcome: Progressing Note: Evaluation [...] at the bedside 7. Instruct patient/ patient sales representative health insurance about use of safety devices 8. Include patient/ patient sales representative health insurance in decisions related to safety Outcome: Progressing [...] hygiene technique 7. Identify and instruct patient/patient sales representative health insurance in use of appropriate isolation precautions for identified infection/symptoms 8. Provide and discuss with patient/patient sales representative health insurance on educational MDRO sheet 9. Encourage and monitor nutritional status daily and consult flue blower if indicated 10. Implement neutropenic guidelines as needed 11. Review exposure to history of communicable disease and recent travel history on admission 12. Encourage annual influenza vaccine 13. Encourage pneumonia vaccine Outcome: Progressing Note: Evaluation of progress towards goal: Pt is afebrile at this time. Problem: Knowledge Deficit Goal: Patient/patient sales representative health insurance demonstrates understanding of disease process, treatment plan, [...] Score of =/> 25 or indicated by [facility] Assessment Goal: Patient should be free from fall Description: Interventions: 1. Gordon to environment 2. Hourly rounds addressing the [...] non-skid footwear 11. Teach patient and patient sales representative health insurance to maintain environment for safety and engage [...] (cane, walker) within reach 19. Request patient sales representative health insurance bring adaptive equipment/mobility aids from home or obtain and provide as needed 20. Consult pharmacy regarding effects of med's affecting mobility, cognition, and alternatives 21. Obtain physician order for PT if risk factors associated with mobility are present 22. Obtain physician order for OT as appropriate 23. Utilize diversional activities 24. Educate patient and patient sales representative health insurance how to maintain a safe environment during visitation times (notify nurse prior to leaving bedside) 25. Consider appropriateness of medical or non-medical insurance collector 26. Set up voiding schedule as appropriate (every 2 hours) Outcome: Progressing Note: Evaluation of progress towards goal: Pt is free from falls at this time. Pre Procedure Evaluation: H&P was reviewed and the patient was examined. No change has occurred in the patient's condition since the H&P was completed. 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 Encourage patient or legal sales representative health insurance to report early pain and ask for [...] per policy 9. Teach patient or legal sales representative health insurance interventions for comforting Outcome: Progressing Note: Evaluation [...] at the bedside 7. Instruct patient/ patient sales representative health insurance about use of safety devices 8. Include patient/ patient sales representative health insurance in decisions related to safety Outcome: Progressing [...] hygiene technique 7. Identify and instruct patient/patient sales representative health insurance in use of appropriate isolation precautions for identified infection/symptoms 8. Provide and discuss with patient/patient sales representative health insurance on educational MDRO sheet 9. Encourage and monitor nutritional status daily and consult flue blower if indicated 10. Implement neutropenic guidelines as needed 11. Review exposure to history of communicable disease and recent travel history on admission 12. Encourage annual influenza vaccine 13. Encourage pneumonia vaccine Outcome: Progressing Note: Evaluation of progress towards goal: Patient afebrile and WBC of 5.3. Will continue to monitor for signs of infection Problem: Knowledge Deficit Goal: Patient/patient sales representative health insurance demonstrates understanding of disease process, treatment plan, [...] develop effective communication strategies 4. Include patient/patient sales representative health insurance in decisions related to communication Outcome: Progressing [...] supplement as ordered 13. Collaborate with clinical flue blower 14. Include patient/ patient's sales representative health insurance in decisions related to nutrition Outcome: Progressing Note: Evaluation of progress towards goal: Collaborating with interdisciplinary team to ensure adequate nutritional intake. Problem: Moderate - High Risk Fall Score Description: Beal Fall Score of =/> 25 or indicated by [facility] Assessment Goal: Patient should be free from fall Description: Interventions: 1. Gordon to environment 2. Hourly rounds addressing the [...] non-skid footwear 11. Teach patient and patient sales representative health insurance to maintain environment for safety and engage [...] (cane, walker) within reach 19. Request patient sales representative health insurance bring adaptive equipment/mobility aids from home or obtain and provide as needed 20. Consult pharmacy regarding effects of med's affecting mobility, cognition, and alternatives 21. Obtain physician order for PT if risk factors associated with mobility are present 22. Obtain physician order for OT as appropriate 23. Utilize diversional activities 24. Educate patient and patient sales representative health insurance how to maintain a safe environment during visitation times (notify nurse prior to leaving bedside) 25. Consider appropriateness of medical or non-medical insurance collector 26. Set up voiding schedule as appropriate [...] Description: INTERVENTIONS: 1. Encourage patient or legal sales representative health insurance to report early pain and ask for [...] per policy 9. Teach patient or legal sales representative health insurance interventions for comforting Outcome: Progressing Note: Evaluation [...] at the bedside 7. Instruct patient/ patient sales representative health insurance about use of safety devices 8. Include patient/ patient sales representative health insurance in decisions related to safety Outcome: Progressing [...] hygiene technique 7. Identify and instruct patient/patient sales representative health insurance in use of appropriate isolation precautions for identified infection/symptoms 8. Provide and discuss with patient/patient sales representative health insurance on educational MDRO sheet 9. Encourage and monitor nutritional status daily and consult flue blower if indicated 10. Implement neutropenic guidelines as needed 11. Review exposure to history of communicable disease and recent travel history on admission 12. Encourage annual influenza vaccine 13. Encourage pneumonia vaccine Outcome: Progressing Note: Evaluation of progress towards goal: Pt is afebrile at this time. Problem: Knowledge Deficit Goal: Patient/patient sales representative health insurance demonstrates understanding of disease process, treatment plan, [...] Score of =/> 25 or indicated by [facility] Assessment Goal: Patient should be free from fall Description: Interventions: 1. Gordon to environment 2. Hourly rounds addressing the [...] non-skid footwear 11. Teach patient and patient sales representative health insurance to maintain environment for safety and engage [...] (cane, walker) within reach 19. Request patient sales representative health insurance bring adaptive equipment/mobility aids from home or obtain and provide as needed 20. Consult pharmacy regarding effects of med's affecting mobility, cognition, and alternatives 21. Obtain physician order for PT if risk factors associated with mobility are present 22. Obtain physician order for OT as appropriate 23. Utilize diversional activities 24. Educate patient and patient sales representative health insurance how to maintain a safe environment during visitation times (notify nurse prior to leaving bedside) 25. Consider appropriateness of medical or non-medical insurance collector 26. Set up voiding schedule as appropriate [...] Description: INTERVENTIONS: 1. Encourage patient or legal sales representative health insurance to report early pain and ask for [...] per policy 9. Teach patient or legal sales representative health insurance interventions for comforting Outcome: Progressing Note: Evaluation [...] at the bedside 7. Instruct patient/ patient sales representative health insurance about use of safety devices 8. Include patient/ patient sales representative health insurance in decisions related to safety Outcome: Progressing [...] hygiene technique 7. Identify and instruct patient/patient sales representative health insurance in use of appropriate isolation precautions for identified infection/symptoms 8. Provide and discuss with patient/patient sales representative health insurance on educational MDRO sheet 9. Encourage and monitor nutritional status daily and consult flue blower if indicated 10. Implement neutropenic guidelines as needed 11. Review exposure to history of communicable disease and recent travel history on admission 12. Encourage annual influenza vaccine 13. Encourage pneumonia vaccine Outcome: Progressing Note: Evaluation of progress towards goal: Pt afebrile and no outward signs of infection during shift. Problem: Knowledge Deficit Goal: Patient/patient sales representative health insurance demonstrates understanding of disease process, treatment plan, [...] develop effective communication strategies 4. Include patient/patient sales representative health insurance in decisions related to communication Outcome: Progressing [...] Collaborate with ancillary departments 14. Include patient/patient sales representative health insurance in decisions related to anxiety Outcome: Progressing [...] to assist with coping 8. Involve patient's sales representative health insurance in care Outcome: Progressing Note: Evaluation of [...] supplement as ordered 13. Collaborate with clinical flue blower 14. Include patient/ patient's sales representative health insurance in decisions related to nutrition Outcome: Progressing [...] Score of =/> 25 or indicated by [facility] Assessment Goal: Patient should be free from fall Description: Interventions: 1. Gordon to environment 2. Hourly rounds addressing the [...] non-skid footwear 11. Teach patient and patient sales representative health insurance to maintain environment for safety and engage [...] (cane, walker) within reach 19. Request patient sales representative health insurance bring adaptive equipment/mobility aids from home or obtain and provide as needed 20. Consult pharmacy regarding effects of med's affecting mobility, cognition, and alternatives 21. Obtain physician order for PT if risk factors associated with mobility are present 22. Obtain physician order for OT as appropriate 23. Utilize diversional activities 24. Educate patient and patient sales representative health insurance how to maintain a safe environment during visitation times (notify nurse prior to leaving bedside) 25. Consider appropriateness of medical or non-medical insurance collector 26. Set up voiding schedule as appropriate (every 2 hours) Outcome: Progressing Note: Evaluation of progress towards goal: No signs of falls during shift. documented in this encounter [facility] [place] [employer] [facility] 10-15-2023 Hospital course Narrative Inpatient Discharge Summary BRIEF OVERVIEW Admitting Provider: Jonathan Pizarro DO Discharge Provider: Jonathan Pizarro DO Primary Care Physician at Discharge: TUSHAR SOLANO JR, DO [phone] Admission Date: 10/12/2023 Discharge Date: No discharge [...] 11/13/2023 2:30 PM Bernice Davis MD PM [facility] Referrals and Follow-ups to Schedule No dressing needed [facility] [place], [place] DETAILS OF HOSPITAL STAY Presenting Problem/History [...] Your Medications These medications were sent to [facility]/pharmacy #[id number] [place] [address] bisoprolol 5 mg tablet collagenase ointment dapagliflozin propanediol 10 mg tablet sacubitriL-valsartan 24-26 mg tablet spironolactone 25 mg tablet Kallie Roman MD PGY-3, Internal Medicine [facility] Associated attestation - Anup Reed [...] in 1 week documented in this encounter [facility] 10-15-2023 Hospital Discharge instructions Kallie Roman [...] week of discharge documented in this encounter [facility] [employer] 10-15-2023 History of Present illness Narrative Images [...] RCA in 2014. She also went to [facility] [place] and had orbital arthrectomy of the circumflex, PCI of the distal circumflex, PCI of the mid to distal circumflex was overlapping stents and PCI proximal circumflex in 2020. She then locally had HARRY to circumflex 02/15/2023, prior stent to the LAD in 2007, prior CVA hypotension on chronic midodrine. Patient initially presented to [facility] with generalized weakness and shortness of breath. She was found to [place] [address] as well as high sensitivity troponin greater than 26,000. Potassium was profoundly low at 2.6. She was transferred to [facility] for further management. She had a [...] Patent CHURCH to LAD however small caliber CUHRCH, chronic finding Patent vein graft to the distal right coronary artery with severe degenerative disease possible thrombus . Distal right coronary artery has diffuse disease in small caliber vessel not amenable to percutaneous coronary intervention. Occluded LAD, occluded right coronary artery Recommendation Dual antiplatelet therapy including aspirin and Plavix plaque should be continued indefinitely given significant disease in [place] coronary arteries. Optimize medical therapy for coronary [...] be continued indefinitely given significant disease in [place] coronary arteries. Optimize medical therapy for coronary artery disease. Post percutaneous coronary intervention orders Remove sheath 2.5 hours after stopping Angiomax drip. Family updated CHER Mccoy APRN-CNP 10/14/23 1001 Images from the original note were not included. [facility] ACADEMIC SERVICE PROGRESS NOTE Ashvin Rene is a 67 y.o. 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 Optimize medical therapy for coronary [...] be continued indefinitely given significant disease in [place] coronary arteries. Optimize medical therapy for coronary [...] This note was completed using a voice consultant education system. Every effort was made to ensure accuracy. However, inadvertent computerized consultant education errors may be present. Associated attestation - [...] found to be in CHF with proBNP 37979, HS trop 39323, and K 2.1 which was repleted but [...] be continued indefinitely given significant disease in [place] coronary arteries. Optimize medical therapy for coronary [...] be continued indefinitely given significant disease in [place] coronary arteries. 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 Every effort was made to ensure accuracy. However, inadvertent computerized consultant education errors may be present. Associated attestation - Anup Reed MD - 10/13/2023 4:47 PM EDT See my separate note documented in this encounter [facility] 10-15-2023 Note XR CHEST 1 VW Procedure: Chest x-ray performed Number of views:AP view History:Hypoxia Comparison:10/12/2023 Findings: The heart and mediastinal silhouette are stable. There is pulmonary vascular congestion. There are no focal consolidations. There is a small left pleural effusion. There is no pneumothorax Impression: Pulmonary vascular congestion. Finalized by Kay Dunn DO on 10/15/2023 10:48 AM [facility] 10-15-2023 Note Procedure: Chest x-ray performed Number of views:AP view History:Hypoxia Comparison:10/12/2023 Findings: The heart and mediastinal silhouette are stable. There is pulmonary vascular congestion. There are no focal consolidations. There is a small left pleural effusion. There is no pneumothorax Impression: Pulmonary vascular congestion. Finalized by Kay Dunn DO on 10/15/2023 10:48 AM [facility] 10-14-2023 Plan of care note Problem: Pain Goal: Patient goal is pain score less than 4, able to rest, and participant in treatment plan as appropriate Description: INTERVENTIONS: 1. Encourage patient or legal sales representative health insurance to report early pain and ask for [...] per policy 9. Teach patient or legal sales representative health insurance interventions for comforting Outcome: Progressing Note: Evaluation [...] at the bedside 7. Instruct patient/ patient sales representative health insurance about use of safety devices 8. Include patient/ patient sales representative health insurance in decisions related to safety Outcome: Progressing [...] hygiene technique 7. Identify and instruct patient/patient sales representative health insurance in use of appropriate isolation precautions for identified infection/symptoms 8. Provide and discuss with patient/patient sales representative health insurance on educational MDRO sheet 9. Encourage and monitor nutritional status daily and consult flue blower if indicated 10. Implement neutropenic guidelines as needed 11. Review exposure to history of communicable disease and recent travel history on admission 12. Encourage annual influenza vaccine 13. Encourage pneumonia vaccine Outcome: Progressing Note: Evaluation of progress towards goal: Pt afebrile and no outward signs of infection during shift. Problem: Knowledge Deficit Goal: Patient/patient sales representative health insurance demonstrates understanding of disease process, treatment plan, [...] develop effective communication strategies 4. Include patient/patient sales representative health insurance in decisions related to communication Outcome: Progressing [...] Collaborate with ancillary departments 14. Include patient/patient sales representative health insurance in decisions related to anxiety Outcome: Progressing [...] to assist with coping 8. Involve patient's sales representative health insurance in care Outcome: Progressing Note: Evaluation of [...] supplement as ordered 13. Collaborate with clinical flue blower 14. Include patient/ patient's sales representative health insurance in decisions related to nutrition Outcome: Progressing [...] Moderate - High Risk Fall Score Description: [place] Fall Score of =/> 25 or indicated by [facility] Assessment Goal: Patient should be free from fall Description: Interventions: 1. [place] to environment 2. Hourly rounds addressing the [...] non-skid footwear 11. Teach patient and patient sales representative health insurance to maintain environment for safety and engage [...] (cane, walker) within reach 19. Request patient sales representative health insurance bring adaptive equipment/mobility aids from home or obtain and provide as needed 20. Consult pharmacy regarding effects of med's affecting mobility, cognition, and alternatives 21. Obtain physician order for PT if risk factors associated with mobility are present 22. Obtain physician order for OT as appropriate 23. Utilize diversional activities 24. Educate patient and patient sales representative health insurance how to maintain a safe environment during visitation times (notify nurse prior to leaving bedside) 25. Consider appropriateness of medical or non-medical insurance collector 26. Set up voiding schedule as appropriate (every 2 hours) Outcome: Progressing Note: Evaluation of progress towards goal: No signs of falls during shift. [facility] 10-14-2023 Plan of care note Problem: Pain Goal: Patient goal is pain score less than 4, able to rest, and participant in treatment plan as appropriate Description: INTERVENTIONS: 1. Encourage patient or legal sales representative health insurance to report early pain and ask for [...] per policy 9. Teach patient or legal sales representative health insurance interventions for comforting Outcome: Progressing Note: Evaluation [...] at the bedside 7. Instruct patient/ patient sales representative health insurance about use of safety devices 8. Include patient/ patient sales representative health insurance in decisions related to safety Outcome: Progressing [...] hygiene technique 7. Identify and instruct patient/patient sales representative health insurance in use of appropriate isolation precautions for identified infection/symptoms 8. Provide and discuss with patient/patient sales representative health insurance on educational MDRO sheet 9. Encourage and monitor nutritional status daily and consult flue blower if indicated 10. Implement neutropenic guidelines as needed 11. Review exposure to history of communicable disease and recent travel history on admission 12. Encourage annual influenza vaccine 13. Encourage pneumonia vaccine Outcome: Progressing Note: Evaluation of progress towards goal: Pt is afebrile at this time. Problem: Knowledge Deficit Goal: Patient/patient sales representative health insurance demonstrates understanding of disease process, treatment plan, [...] Score of =/> 25 or indicated by [facility] Assessment Goal: Patient should be free from fall Description: Interventions: 1. [place] to environment 2. Hourly rounds addressing the [...] non-skid footwear 11. Teach patient and patient sales representative health insurance to maintain environment for safety and engage [...] (cane, walker) within reach 19. Request patient sales representative health insurance bring adaptive equipment/mobility aids from home or obtain and provide as needed 20. Consult pharmacy regarding effects of med's affecting mobility, cognition, and alternatives 21. Obtain physician order for PT if risk factors associated with mobility are present 22. Obtain physician order for OT as appropriate 23. Utilize diversional activities 24. Educate patient and patient sales representative health insurance how to maintain a safe environment during visitation times (notify nurse prior to leaving bedside) 25. Consider appropriateness of medical or non-medical insurance collector 26. Set up voiding schedule as appropriate (every 2 hours) Outcome: Progressing Note: Evaluation of progress towards goal: Pt is free from falls at this time. [facility] 10-14-2023 Procedure note Pre Procedure Evaluation: H&P was reviewed and the patient was examined. No change has occurred in the patient's condition since the H&P was completed. 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 Clinical Frailty Scale (Assessment immediately prior to procedure): 6: Moderately Frail Cardiac Arrest Out of Hospital: No Cardiac Arrest at Transferring Facility: No [facility] 10-14-2023 Attending History and physical note HISTORY AND PHYSICAL INTERVAL NOTE: Ashvin Rene [id number] H&P reviewed. The patient was examined and there are no changes to the H&P. Alexi Freeman MD Source Note - Lenny Rodriguez MD - 10/12/2023 11:49 PM EDT Images from the original note were not included. [facility] [address] [place] [address] HISTORY & PHYSICAL / CONSULT NOTE Ashvin [...] found to be in CHF with proBNP 71507, HS trop 13194, and K 2.1 which was repleted but [...] Past Medical History: Diagnosis Date Angina pectoris ([facility] Atherosclerosis of coronary artery bypass graft Atherosclerotic heart disease Coronary angioplasty status Coronary artery disease CVA (cerebral vascular accident) ([facility]) Dyspnea Hyperlipidemia Hypertension Hypotension Other chest pain Stroke ([facility]) Previous Surgical History: Past Surgical History: Procedure Laterality Date CARDIAC CATHETERIZATION Cardiac catheterization N/A 02/15/2023 Performed by Star Espinosa MD at [facility] CARD[facility] CATH LABS Cardiac catheterization - LV cors w/graft check N/A 10/25/2020 Performed by Alexi Freeman MD at [facility]IAC CATH LABS Coronary angiogram and graft/[place] N/A 02/15/2023 Performed by Star Espinosa MD at [facility] CATH LABS Coronary angiogram and left ventricular gram/pressure + graft/[place] N/A 10/25/2020 Performed by Alexi Freeman MD at [facility] C[facility]IAC CATH LABS Coronary angiogram and left ventricular gram/pressure + graft/[place] N/A 06/18/2016 Performed by Alexi Freeman MD at [facility] CARDIAC CATH LABS CORONARY ANGIOPLASTY 12/08/2020 orbital atherectomy and 2 HARRY to prox and distal Circ, at [facility] per Dr. Madhav Ugalde CORONARY ARTERY BYPASS GRAFT 09/08/2014 HYSTERECTOMY INSERTION LOOP RECORDER 05/24/2016 Percutaneous coronary angioplasty left circumflex N/A 02/15/2023 Performed by Star Espinosa MD at [facility] C[facility] CATH LABS Stent drug-eluting left circumflex N/A 02/15/2023 Performed by Star Espinosa MD at [facility] C[facility]IAC CATH LABS Allergies: Allergies Allergen [...] CHER Rincon [START ON 10/13/2023] heparin infusion 98736 units/500 mL in 0.45% NaCl (50 units/mL premix) 300-3,500 Units/hr intravenous Continuous CHER Rincon magnesium sulfate IVPB 2000 mg/50 mL in iso-osmotic water (40 mg/mL premix) 2,000 mg intravenous PRN Parul R Jeb, CLINICAL STAFF RN-WEATHERIZATION OPERATIONS MANAGER Or magnesium sulfate IVPB 4000 mg/100 mL in iso-osmotic water (40 mg/mL premix) 4,000 mg intravenous PRN Parul R Jeb, CLINICAL STAFF RN-WEATHERIZATION OPERATIONS MANAGER potassium chloride (K-TAB,KLOR-CON) CR tablet 20-50 mEq 20-50 mEq oral PRN Parul R Jeb, CLINICAL STAFF RN-WEATHERIZATION OPERATIONS MANAGER Or potassium chloride (KAYCIEL) 20 mEq/15 mL solution 20-50 mEq 20-50 mEq oral PRN Parul R Jeb, CLINICAL STAFF RN-WEATHERIZATION OPERATIONS MANAGER potassium chloride IVPB 10 mEq/50 mL in water (0.2 mEq/mL premix) 10 mEq intravenous PRN Parul R Jeb, CLINICAL STAFF RN-WEATHERIZATION OPERATIONS MANAGER Or potassium chloride IVPB 10 mEq/100 mL in water (0.1 mEq/mL premix) 10 mEq intravenous PRN Parul R Jeb, CLINICAL STAFF RN-WEATHERIZATION OPERATIONS MANAGER sodium phosphate 20 mmol in sodium chloride 0.9 % 250 mL IVPB 20 mmol intravenous PRN Parul R Jeb, CLINICAL STAFF RN-WEATHERIZATION OPERATIONS MANAGER Or sodium phosphate 20 mmol in sodium chloride 0.9 % 100 mL IVPB 20 mmol intravenous PRN Parul R Jeb, CLINICAL STAFF RN-WEATHERIZATION OPERATIONS MANAGER Or sod phos di, mono-K phos mono (K-PHOS NEUTRAL) 250 mg tablet 2 tablet 2 tablet oral PRN Parul R Jeb, CLINICAL STAFF RN-WEATHERIZATION OPERATIONS MANAGER sodium chloride 0.9 % infusion 10 mL/hr intravenous Continuous PRN Parul R Jeb, CLINICAL STAFF RN-WEATHERIZATION OPERATIONS MANAGER sodium chloride 0.9 % infusion 10 mL/hr intravenous Continuous PRN Parul R Jeb, CLINICAL STAFF RN-WEATHERIZATION OPERATIONS MANAGER sodium chloride 0.9 % infusion 10 mL/hr intravenous Continuous PRN Parul R Jeb, CLINICAL STAFF RN-WEATHERIZATION OPERATIONS MANAGER Home Meds: Prior to Admission medications Medication [...] be continued indefinitely given significant disease in [place] coronary arteries. Optimize medical therapy for coronary [...] be continued indefinitely given significant disease in [place] coronary arteries. Optimize medical therapy for coronary [...] Acute on chronic HFrEF Elevated HS troponin 98125 ASCVD h/o CABG and s/p PCI Cx [...] 75 mg oral Daily Parul R Jeb, CLINICAL STAFF RN-WEATHERIZATION OPERATIONS MANAGER dextrose (GLUTOSE) 40 % gel 15 g 15 g oral PRN Parul Holder Jeb, CLINICAL STAFF RN-WEATHERIZATION OPERATIONS MANAGER dextrose 5 % (D5W) infusion 100 mL/hr intravenous Continuous PRN Parul Hassann, CLINICAL STAFF RN-WEATHERIZATION OPERATIONS MANAGER dextrose 50 % in water (D50W) 50% solution 25 mL 25 mL intravenous PRN Parul R Jeb, CLINICAL STAFF RN-WEATHERIZATION OPERATIONS MANAGER glucagon HCL injection 1 mg 1 mg intramuscular PRN Parul Holder Jeb, CLINICAL STAFF RN-WEATHERIZATION OPERATIONS MANAGER heparin (porcine) injection 2,000 Units 2,000 Units intravenous PRN Parul R Jeb, CLINICAL STAFF RN-WEATHERIZATION OPERATIONS MANAGER heparin infusion 65384 units/500 mL in 0.45% NaCl (50 units/mL premix) 300-3,500 Units/hr intravenous Continuous Parul Holder Jeb, CLINICAL STAFF RN-WEATHERIZATION OPERATIONS MANAGER 16 mL/hr at 10/13/23 0013 800 Units/hr at 10/13/23 0013 magnesium sulfate IVPB 2000 mg/50 mL in iso-osmotic water (40 mg/mL premix) 2,000 mg intravenous PRN Parul R Jeb, CLINICAL STAFF RN-WEATHERIZATION OPERATIONS MANAGER Or magnesium sulfate IVPB 4000 mg/100 mL in iso-osmotic water (40 mg/mL premix) 4,000 mg intravenous PRN Parul Hassann, CLINICAL STAFF RN-WEATHERIZATION OPERATIONS MANAGER midodrine (PROAMATINE) tablet 5 mg 5 mg oral Q8H PRN Parul R Jeb, CLINICAL STAFF RN-WEATHERIZATION OPERATIONS MANAGER potassium chloride (K-TAB,KLOR-CON) CR tablet 20-50 mEq 20-50 mEq oral PRN Parul Holder Jeb, CLINICAL STAFF RN-WEATHERIZATION OPERATIONS MANAGER Or potassium chloride (KAYCIEL) 20 mEq/15 mL solution 20-50 mEq 20-50 mEq oral PRN Parul R Jeb, CLINICAL STAFF RN-WEATHERIZATION OPERATIONS MANAGER potassium chloride IVPB 10 mEq/50 mL in water (0.2 mEq/mL premix) 10 mEq intravenous PRN Parul R Jeb, CLINICAL STAFF RN-WEATHERIZATION OPERATIONS MANAGER Or potassium chloride IVPB 10 mEq/100 mL in water (0.1 mEq/mL premix) 10 mEq intravenous PRN Parul R Jeb, CLINICAL STAFF RN-WEATHERIZATION OPERATIONS MANAGER ranolazine (RANEXA) 12 hr tablet 1,000 mg 1,000 mg oral BID Parul R Jeb, CLINICAL STAFF RN-WEATHERIZATION OPERATIONS MANAGER rosuvastatin (CRESTOR) tablet 20 mg 20 mg oral Daily Parul R Jeb, CLINICAL STAFF RN-WEATHERIZATION OPERATIONS MANAGER sodium phosphate 20 mmol in sodium chloride 0.9 % 250 mL IVPB 20 mmol intravenous PRN Parul R Jeb, CLINICAL STAFF RN-WEATHERIZATION OPERATIONS MANAGER Or sodium phosphate 20 mmol in sodium chloride 0.9 % 100 mL IVPB 20 mmol intravenous PRN Parul R Jeb, CLINICAL STAFF RN-WEATHERIZATION OPERATIONS MANAGER Or sod phos di, mono-K phos mono (K-PHOS NEUTRAL) 250 mg tablet 2 tablet 2 tablet oral PRN Parul R Jeb, CLINICAL STAFF RN-WEATHERIZATION OPERATIONS MANAGER sodium chloride 0.9 % infusion 10 mL/hr intravenous Continuous PRN Parul R Jeb, CLINICAL STAFF RN-WEATHERIZATION OPERATIONS MANAGER sodium chloride 0.9 % infusion 10 mL/hr intravenous Continuous PRN Parul R Jeb, CLINICAL STAFF RN-WEATHERIZATION OPERATIONS MANAGER sodium chloride 0.9 % infusion 10 mL/hr intravenous Continuous PRN Parul R Jeb, CLINICAL STAFF RN-WEATHERIZATION OPERATIONS MANAGER Laboratory CBC: BMP: Troponin I Physical Exam [...] This note was completed using a voice consultant education system. Every effort was made to ensure accuracy. However, inadvertent computerized consultant education errors may be present. [employer] Work Phone: 10-14-2023 History and physical note HISTORY AND PHYSICAL INTERVAL NOTE: Ashvin Rene [id number] H&P reviewed. The patient was examined and there are no changes to the H&P. Alexi Freeman MD Source Note - Lenny Rodriguez MD - 10/12/2023 11:49 PM EDT Images from the original note were not included. [facility] [address] [place] [address] HISTORY & PHYSICAL / CONSULT NOTE Ashvin [...] found to be in CHF with proBNP 75770, HS trop 36756, and K 2.1 which was repleted but [...] Past Medical History: Diagnosis Date Angina pectoris ([facility]) Atherosclerosis of coronary artery bypass graft Atherosclerotic heart disease Coronary angioplasty status Coronary artery disease CVA (cerebral vascular accident) ([facility]) Dyspnea Hyperlipidemia Hypertension Hypotension Other chest pain Stroke ([facility]) Previous Surgical History: Past Surgical History: Procedure Laterality Date CARDIAC CATHETERIZATION Cardiac catheterization N/A 02/15/2023 Performed by Star Espinosa MD at [facility] CARDIAC CATH LABS Cardiac catheterization - LV cors w/graft check N/A 10/25/2020 Performed by Alexi Freeman MD at [facility] C[facility]IAC CATH [facility] Coronary angiogram and graft/[place] N/A 02/15/2023 Performed by Star Espinosa MD at [facility] C[facility] CATH [facility] Coronary angiogram and left ventricular gram/pressure + graft/[place] N/A 10/25/2020 Performed by Alexi Freeman MD at [facility] C[facility]IAC CATH LABS Coronary angiogram and left ventricular gram/pressure + graft/[place] N/A 06/18/2016 Performed by Alexi Freeman MD at [facility] C[facility]IAC CATH [facility]S CORONARY ANGIOPLASTY 12/08/2020 orbital atherectomy and 2 HARRY to prox and distal Circ, at [facility] per Dr. Madhav Ugalde CORONARY ARTERY BYPASS GRAFT 09/08/2014 HYSTERECTOMY INSERTION LOOP RECORDER 05/24/2016 Percutaneous coronary angioplasty left circumflex N/A 02/15/2023 Performed by Star Espinosa MD at [facility] C[facility]IAC CATH LABS Stent drug-eluting left circumflex N/A 02/15/2023 Performed by Star Espinosa MD at [facility] C[facility]IAC CATH LABS Allergies: Allergies Allergen Reactions Aspirin-Dipyridamole aggronox Atorvastatin Hives lipitor Cefadroxil duricef Codeine Fenofibrate Micronized tricor Fluvoxamine luvox Nefazodone serzone Niacin Other reaction(s): Intolerance-unknown Hospital Meds: Current Facility-Administered Medications Medication Dose Route Frequency Provider Last Rate Last Admin calcium gluconate IVPB 1000 mg/50 mL (20 mg/mL premix) 1,000 mg intravenous PRN Parul John APRN-WEATHERIZATION OPERATIONS MANAGER Or calcium gluconate IVPB 2000 mg/100 mL (20 mg/mL premix) 2,000 mg intravenous PRN Parul John, CLINICAL STAFF RN-WEATHERIZATION OPERATIONS MANAGER Or calcium gluconate 3,000 mg in sodium chloride 0.9 % 100 mL IVPB 3,000 mg intravenous PRN Parul John CLINICAL STAFF RN-WEATHERIZATION OPERATIONS MANAGER dextrose (GLUTOSE) 40 % gel 15 g 15 g oral PRN Parul oJhn CLINICAL STAFF RN-WEATHERIZATION OPERATIONS MANAGER dextrose 5 % (D5W) infusion 100 mL/hr intravenous Continuous PRN Parul John CLINICAL STAFF RN-WEATHERIZATION OPERATIONS MANAGER dextrose 50 % in water (D50W) 50% solution 25 mL 25 mL intravenous PRN Parul R Jeb, CLINICAL STAFF RN-WEATHERIZATION OPERATIONS MANAGER glucagon HCL injection 1 mg 1 mg intramuscular PRN Parul R Jeb, CLINICAL STAFF RN-WEATHERIZATION OPERATIONS MANAGER heparin (porcine) injection 2,000 Units 2,000 Units intravenous PRN Parul R Jeb, CLINICAL STAFF RN-WEATHERIZATION OPERATIONS MANAGER [START ON 10/13/2023] heparin infusion 90500 units/500 mL in 0.45% NaCl (50 units/mL premix) 300-3,500 Units/hr intravenous Continuous Parul R Jeb, CLINICAL STAFF RN-WEATHERIZATION OPERATIONS MANAGER magnesium sulfate IVPB 2000 mg/50 mL in iso-osmotic water (40 mg/mL premix) 2,000 mg intravenous PRN Parul R Jeb, CLINICAL STAFF RN-WEATHERIZATION OPERATIONS MANAGER Or magnesium sulfate IVPB 4000 mg/100 mL in iso-osmotic water (40 mg/mL premix) 4,000 mg intravenous PRN Parul R Jeb, CLINICAL STAFF RN-WEATHERIZATION OPERATIONS MANAGER potassium chloride (K-TAB,KLOR-CON) CR tablet 20-50 mEq 20-50 mEq oral PRN Parul R Jeb, CLINICAL STAFF RN-WEATHERIZATION OPERATIONS MANAGER Or potassium chloride (KAYCIEL) 20 mEq/15 mL solution 20-50 mEq 20-50 mEq oral PRN Parul R Jeb, CLINICAL STAFF RN-WEATHERIZATION OPERATIONS MANAGER potassium chloride IVPB 10 mEq/50 mL in water (0.2 mEq/mL premix) 10 mEq intravenous PRN Parul R Jeb, CLINICAL STAFF RN-WEATHERIZATION OPERATIONS MANAGER Or potassium chloride IVPB 10 mEq/100 mL in water (0.1 mEq/mL premix) 10 mEq intravenous PRN Parul R Jeb, CLINICAL STAFF RN-WEATHERIZATION OPERATIONS MANAGER sodium phosphate 20 mmol in sodium chloride 0.9 % 250 mL IVPB 20 mmol intravenous PRN Parul R Jeb, CLINICAL STAFF RN-WEATHERIZATION OPERATIONS MANAGER Or sodium phosphate 20 mmol in sodium chloride 0.9 % 100 mL IVPB 20 mmol intravenous PRN Parul R Jeb, CLINICAL STAFF RN-WEATHERIZATION OPERATIONS MANAGER Or sod phos di, mono-K phos mono (K-PHOS NEUTRAL) 250 mg tablet 2 tablet 2 tablet oral PRN Parul R Jeb, CLINICAL STAFF RN-WEATHERIZATION OPERATIONS MANAGER sodium chloride 0.9 % infusion 10 mL/hr intravenous Continuous PRN Parul R Jeb, CLINICAL STAFF RN-WEATHERIZATION OPERATIONS MANAGER sodium chloride 0.9 % infusion 10 mL/hr intravenous Continuous PRN Parul R Jeb, CLINICAL STAFF RN-WEATHERIZATION OPERATIONS MANAGER sodium chloride 0.9 % infusion 10 mL/hr [...] total) by mouth in the morning. 02/16/23 Snuny Tran PA-C cyanocobalamin (vitamin B-12) 1000 MCG [...] be continued indefinitely given significant disease in [place] coronary arteries. Optimize medical therapy for coronary [...] be continued indefinitely given significant disease in [place] coronary arteries. Optimize medical therapy for coronary [...] Acute on chronic HFrEF Elevated HS troponin 64106 ASCVD h/o CABG and s/p PCI Cx [...] mg 81 mg oral Daily Parul John, CLINICAL STAFF RN-WEATHERIZATION OPERATIONS MANAGER calcium gluconate IVPB 1000 mg/50 mL (20 mg/mL premix) 1,000 mg intravenous PRN Parul Hassann, CLINICAL STAFF RN-WEATHERIZATION OPERATIONS MANAGER Or calcium gluconate IVPB 2000 mg/100 mL (20 mg/mL premix) 2,000 mg intravenous PRN Parul Hassann, CLINICAL STAFF RN-WEATHERIZATION OPERATIONS MANAGER Or calcium gluconate 3,000 mg in sodium chloride 0.9 % 100 mL IVPB 3,000 mg intravenous PRN Parul John, CLINICAL STAFF RN-WEATHERIZATION OPERATIONS MANAGER clopidogreL (PLAVIX) tablet 75 mg 75 mg oral Daily Parul John, CLINICAL STAFF RN-WEATHERIZATION OPERATIONS MANAGER dextrose (GLUTOSE) 40 % gel 15 g 15 g oral PRN Parul John, CLINICAL STAFF RN-WEATHERIZATION OPERATIONS MANAGER dextrose 5 % (D5W) infusion 100 mL/hr intravenous Continuous PRN Parul John, CLINICAL STAFF RN-WEATHERIZATION OPERATIONS MANAGER dextrose 50 % in water (D50W) 50% solution 25 mL 25 mL intravenous PRN Parul John, CLINICAL STAFF RN-WEATHERIZATION OPERATIONS MANAGER glucagon HCL injection 1 mg 1 mg intramuscular PRN Parul John, CLINICAL STAFF RN-WEATHERIZATION OPERATIONS MANAGER heparin (porcine) injection 2,000 Units 2,000 Units intravenous PRN Parul John, CLINICAL STAFF RN-WEATHERIZATION OPERATIONS MANAGER heparin infusion 17603 units/500 mL in 0.45% NaCl (50 units/mL premix) 300-3,500 Units/hr intravenous Continuous Parul John, CLINICAL STAFF RN-WEATHERIZATION OPERATIONS MANAGER 16 mL/hr at 10/13/23 0013 800 Units/hr at 10/13/23 0013 magnesium sulfate IVPB 2000 mg/50 mL in iso-osmotic water (40 mg/mL premix) 2,000 mg intravenous PRN Parul Hassann, CLINICAL STAFF RN-WEATHERIZATION OPERATIONS MANAGER Or magnesium sulfate IVPB 4000 mg/100 mL in iso-osmotic water (40 mg/mL premix) 4,000 mg intravenous PRN Parul John, CLINICAL STAFF RN-WEATHERIZATION OPERATIONS MANAGER midodrine (PROAMATINE) tablet 5 mg 5 mg oral Q8H PRN Parul John, CLINICAL STAFF RN-WEATHERIZATION OPERATIONS MANAGER potassium chloride (K-TAB,KLOR-CON) CR tablet 20-50 mEq 20-50 mEq oral PRN Parul Hassann, CLINICAL STAFF RN-WEATHERIZATION OPERATIONS MANAGER Or potassium chloride (KAYCIEL) 20 mEq/15 mL solution 20-50 mEq 20-50 mEq oral PRN Parul R Jeb, CLINICAL STAFF RN-WEATHERIZATION OPERATIONS MANAGER potassium chloride IVPB 10 mEq/50 mL in water (0.2 mEq/mL premix) 10 mEq intravenous PRN Parul R Jeb, CLINICAL STAFF RN-WEATHERIZATION OPERATIONS MANAGER Or potassium chloride IVPB 10 mEq/100 mL in water (0.1 mEq/mL premix) 10 mEq intravenous PRN Parul R Jeb, CLINICAL STAFF RN-WEATHERIZATION OPERATIONS MANAGER ranolazine (RANEXA) 12 hr tablet 1,000 mg 1,000 mg oral BID Parul R Jeb, CLINICAL STAFF RN-WEATHERIZATION OPERATIONS MANAGER rosuvastatin (CRESTOR) tablet 20 mg 20 mg oral Daily Parul Mcdowellfern, CLINICAL STAFF RN-WEATHERIZATION OPERATIONS MANAGER sodium phosphate 20 mmol in sodium chloride 0.9 % 250 mL IVPB 20 mmol intravenous PRN Parul R Jeb, CLINICAL STAFF RN-WEATHERIZATION OPERATIONS MANAGER Or sodium phosphate 20 mmol in sodium chloride 0.9 % 100 mL IVPB 20 mmol intravenous PRN Parul R Ejb, CLINICAL STAFF RN-WEATHERIZATION OPERATIONS MANAGER Or sod phos di, mono-K phos mono (K-PHOS NEUTRAL) 250 mg tablet 2 tablet 2 tablet oral PRN Parul R Jeb, CLINICAL STAFF RN-WEATHERIZATION OPERATIONS MANAGER sodium chloride 0.9 % infusion 10 mL/hr intravenous Continuous PRN Parul R Jeb, CLINICAL STAFF RN-WEATHERIZATION OPERATIONS MANAGER sodium chloride 0.9 % infusion 10 mL/hr intravenous Continuous PRN Parul R Jeb, CLINICAL STAFF RN-WEATHERIZATION OPERATIONS MANAGER sodium chloride 0.9 % infusion 10 mL/hr intravenous Continuous PRN Parul R Jeb, CLINICAL STAFF RN-WEATHERIZATION OPERATIONS MANAGER Laboratory CBC: BMP: Troponin I Physical Exam [...] This note was completed using a voice consultant education system. Every effort was made to ensure accuracy. However, inadvertent computerized consultant education errors may be present. Images from the original note were not included. [facility] [address] [place] [address] HISTORY & PHYSICAL / CONSULT NOTE Ashvin Rene PCP: TUSHAR SOLANO JR, DO Date of Admission: 10/12/2023 Date of Consultation: 10/12/2023 11:49 PM Consult for CHF SUBJECTIVE History of Present Illness: Asvhin Rene is a 67 y.o. 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, prior CVA who presented to OSH with weakness SOB and cough found to be in CHF with proBNP 98959, HS trop 83418, and K 2.1 which was repleted but [...] Past Medical History: Diagnosis Date Angina pectoris ([facility]) Atherosclerosis of coronary artery bypass graft Atherosclerotic heart disease Coronary angioplasty status Coronary artery disease CVA (cerebral vascular accident) ([facility]) Dyspnea Hyperlipidemia Hypertension Hypotension Other chest pain Stroke ([facility]) Previous Surgical History: Past Surgical History: Procedure Laterality Date CARDIAC CATHETERIZATION Cardiac catheterization N/A 02/15/2023 Performed by Star Espinosa MD at [facility] Cardiac catheterization - LV cors w/graft check N/A 10/25/2020 Performed by Alexi Freeman MD at [facility] Coronary angiogram and graft/[place] N/A 02/15/2023 Performed by Star Espinosa MD at [facility] Coronary angiogram and left ventricular gram/pressure + graft/[place] N/A 10/25/2020 Performed by Alexi Freeman MD at [facility] Coronary angiogram and left ventricular gram/pressure + graft/[place] N/A 06/18/2016 Performed by Alexi Freeman MD at [facility] CORONARY ANGIOPLASTY 12/08/2020 orbital atherectomy and 2 HARRY to prox and distal Circ, at [facility] [place] per Dr. Madhav Ugalde CORONARY ARTERY BYPASS GRAFT 09/08/2014 HYSTERECTOMY INSERTION LOOP RECORDER 05/24/2016 Percutaneous coronary angioplasty left circumflex N/A 02/15/2023 Performed by Star Espinosa MD at [facility] Stent drug-eluting left circumflex N/A 02/15/2023 Performed by Star Espinosa MD at [facility] Allergies: Allergies Allergen [...] premix) 2,000 mg intravenous PRN Parul John APRN-WEATHERIZATION OPERATIONS MANAGER Or calcium gluconate 3,000 mg in sodium chloride 0.9 % 100 mL IVPB 3,000 mg intravenous PRN Parul John APRN-SUNIL dextrose (GLUTOSE) 40 % gel 15 g 15 g oral PRN Parul John APRN-WEATHERIZATION OPERATIONS MANAGER dextrose 5 % (D5W) infusion 100 mL/hr intravenous Continuous PRN Parul John APRN-SUNIL dextrose 50 % in water (D50W) 50% solution 25 mL 25 mL intravenous PRN Parul R Jeb, CLINICAL STAFF RN-WEATHERIZATION OPERATIONS MANAGER glucagon HCL injection 1 mg 1 mg intramuscular PRN Parul R Jeb, CLINICAL STAFF RN-WEATHERIZATION OPERATIONS MANAGER heparin (porcine) injection 2,000 Units 2,000 Units intravenous PRN Parul R Jeb, CLINICAL STAFF RN-WEATHERIZATION OPERATIONS MANAGER [START ON 10/13/2023] heparin infusion 87651 units/500 mL in 0.45% NaCl (50 units/mL premix) 300-3,500 Units/hr intravenous Continuous Parul R Jeb, CLINICAL STAFF RN-WEATHERIZATION OPERATIONS MANAGER magnesium sulfate IVPB 2000 mg/50 mL in iso-osmotic water (40 mg/mL premix) 2,000 mg intravenous PRN Parul R Jeb, CLINICAL STAFF RN-WEATHERIZATION OPERATIONS MANAGER Or magnesium sulfate IVPB 4000 mg/100 mL in iso-osmotic water (40 mg/mL premix) 4,000 mg intravenous PRN Parul R Jeb, CLINICAL STAFF RN-WEATHERIZATION OPERATIONS MANAGER potassium chloride (K-TAB,KLOR-CON) CR tablet 20-50 mEq 20-50 mEq oral PRN Parul R Jeb, CLINICAL STAFF RN-WEATHERIZATION OPERATIONS MANAGER Or potassium chloride (KAYCIEL) 20 mEq/15 mL solution 20-50 mEq 20-50 mEq oral PRN Parul R Jeb, CLINICAL STAFF RN-WEATHERIZATION OPERATIONS MANAGER potassium chloride IVPB 10 mEq/50 mL in water (0.2 mEq/mL premix) 10 mEq intravenous PRN Parul R Jeb, CLINICAL STAFF RN-WEATHERIZATION OPERATIONS MANAGER Or potassium chloride IVPB 10 mEq/100 mL in water (0.1 mEq/mL premix) 10 mEq intravenous PRN Parul R Jeb, CLINICAL STAFF RN-WEATHERIZATION OPERATIONS MANAGER sodium phosphate 20 mmol in sodium chloride 0.9 % 250 mL IVPB 20 mmol intravenous PRN Parul R Jeb, CLINICAL STAFF RN-WEATHERIZATION OPERATIONS MANAGER Or sodium phosphate 20 mmol in sodium chloride 0.9 % 100 mL IVPB 20 mmol intravenous PRN Parul R Jbe, CLINICAL STAFF RN-WEATHERIZATION OPERATIONS MANAGER Or sod phos di, mono-K phos mono (K-PHOS NEUTRAL) 250 mg tablet 2 tablet 2 tablet oral PRN Parul R Jeb, CLINICAL STAFF RN-WEATHERIZATION OPERATIONS MANAGER sodium chloride 0.9 % infusion 10 mL/hr intravenous Continuous PRN Parul R Jeb, CLINICAL STAFF RN-WEATHERIZATION OPERATIONS MANAGER sodium chloride 0.9 % infusion 10 mL/hr intravenous Continuous PRN Parul R Jeb, CLINICAL STAFF RN-WEATHERIZATION OPERATIONS MANAGER sodium chloride 0.9 % infusion 10 mL/hr [...] be continued indefinitely given significant disease in [place] coronary arteries. Optimize medical therapy for coronary [...] be continued indefinitely given significant disease in [place] coronary arteries. Optimize medical therapy for coronary [...] Acute on chronic HFrEF Elevated HS troponin 14916 ASCVD h/o CABG and s/p PCI Cx 03/05 Ischemic cardiomyopathy EF 35-40% Hypokalemia Chronic hypotension on midodrine Dyslipidemia Trend troponins Recheck electrolytes IV diuresis Continue Heparin gtt Continue DAPT Unable to titrate GDMT given HOTN Recheck echo PARUL JOHN, NICK-WEATHERIZATION OPERATIONS MANAGER Parul John APRN-SUNIL 10/13/23 0016 [facility] [...] mg 81 mg oral Daily Parul John, CLINICAL STAFF RN-WEATHERIZATION OPERATIONS MANAGER calcium gluconate IVPB 1000 mg/50 mL (20 mg/mL premix) 1,000 mg intravenous PRN Parul Hassann, CLINICAL STAFF RN-WEATHERIZATION OPERATIONS MANAGER Or calcium gluconate IVPB 2000 mg/100 mL (20 mg/mL premix) 2,000 mg intravenous PRN Parul John, CLINICAL STAFF RN-WEATHERIZATION OPERATIONS MANAGER Or calcium gluconate 3,000 mg in sodium chloride 0.9 % 100 mL IVPB 3,000 mg intravenous PRN Parul John, CLINICAL STAFF RN-WEATHERIZATION OPERATIONS MANAGER clopidogreL (PLAVIX) tablet 75 mg 75 mg oral Daily Parul John, CLINICAL STAFF RN-WEATHERIZATION OPERATIONS MANAGER dextrose (GLUTOSE) 40 % gel 15 g 15 g oral PRN Parul John, CLINICAL STAFF RN-WEATHERIZATION OPERATIONS MANAGER dextrose 5 % (D5W) infusion 100 mL/hr intravenous Continuous PRN Parul John, CLINICAL STAFF RN-WEATHERIZATION OPERATIONS MANAGER dextrose 50 % in water (D50W) 50% solution 25 mL 25 mL intravenous PRN Parul John, CLINICAL STAFF RN-WEATHERIZATION OPERATIONS MANAGER glucagon HCL injection 1 mg 1 mg intramuscular PRN Parul John, CLINICAL STAFF RN-WEATHERIZATION OPERATIONS MANAGER heparin (porcine) injection 2,000 Units 2,000 Units intravenous PRN Parul John, CLINICAL STAFF RN-WEATHERIZATION OPERATIONS MANAGER heparin infusion 54824 units/500 mL in 0.45% NaCl (50 units/mL premix) 300-3,500 Units/hr intravenous Continuous Parul John, CLINICAL STAFF RN-WEATHERIZATION OPERATIONS MANAGER 16 mL/hr at 10/13/23 0013 800 Units/hr at 10/13/23 0013 magnesium sulfate IVPB 2000 mg/50 mL in iso-osmotic water (40 mg/mL premix) 2,000 mg intravenous PRN Parul John, CLINICAL STAFF RN-WEATHERIZATION OPERATIONS MANAGER Or magnesium sulfate IVPB 4000 mg/100 mL in iso-osmotic water (40 mg/mL premix) 4,000 mg intravenous PRN Parul John, CLINICAL STAFF RN-WEATHERIZATION OPERATIONS MANAGER midodrine (PROAMATINE) tablet 5 mg 5 mg oral Q8H PRN Parul John, CLINICAL STAFF RN-WEATHERIZATION OPERATIONS MANAGER potassium chloride (K-TAB,KLOR-CON) CR tablet 20-50 mEq 20-50 mEq oral PRN Parul John, CLINICAL STAFF RN-WEATHERIZATION OPERATIONS MANAGER Or potassium chloride (KAYCIEL) 20 mEq/15 mL solution 20-50 mEq 20-50 mEq oral PRN Parul R Jeb, CLINICAL STAFF RN-WEATHERIZATION OPERATIONS MANAGER potassium chloride IVPB 10 mEq/50 mL in water (0.2 mEq/mL premix) 10 mEq intravenous PRN Parul R Jeb, CLINICAL STAFF RN-WEATHERIZATION OPERATIONS MANAGER Or potassium chloride IVPB 10 mEq/100 mL in water (0.1 mEq/mL premix) 10 mEq intravenous PRN Parul R Jeb, CLINICAL STAFF RN-WEATHERIZATION OPERATIONS MANAGER ranolazine (RANEXA) 12 hr tablet 1,000 mg 1,000 mg oral BID Parul Hassann, CLINICAL STAFF RN-WEATHERIZATION OPERATIONS MANAGER rosuvastatin (CRESTOR) tablet 20 mg 20 mg oral Daily Parul Hassann, CLINICAL STAFF RN-WEATHERIZATION OPERATIONS MANAGER sodium phosphate 20 mmol in sodium chloride 0.9 % 250 mL IVPB 20 mmol intravenous PRN Parul R Jeb, CLINICAL STAFF RN-WEATHERIZATION OPERATIONS MANAGER Or sodium phosphate 20 mmol in sodium chloride 0.9 % 100 mL IVPB 20 mmol intravenous PRN Parul Hassann, CLINICAL STAFF RN-WEATHERIZATION OPERATIONS MANAGER Or sod phos di, mono-K phos mono (K-PHOS NEUTRAL) 250 mg tablet 2 tablet 2 tablet oral PRN Parul R Jeb, CLINICAL STAFF RN-WEATHERIZATION OPERATIONS MANAGER sodium chloride 0.9 % infusion 10 mL/hr intravenous Continuous PRN Parul R Jeb, CLINICAL STAFF RN-WEATHERIZATION OPERATIONS MANAGER sodium chloride 0.9 % infusion 10 mL/hr intravenous Continuous PRN Parul R Jeb, CLINICAL STAFF RN-WEATHERIZATION OPERATIONS MANAGER sodium chloride 0.9 % infusion 10 mL/hr intravenous Continuous PRN Parul R Jeb, CLINICAL STAFF RN-WEATHERIZATION OPERATIONS MANAGER Laboratory CBC: BMP: Troponin I Physical Exam [...] This note was completed using a voice consultant education system. Every effort was made to ensure accuracy. However, inadvertent computerized consultant education errors may be present. documented in this encounter [facility] Adjusted CathPCI Bleeding Event [...] is an appropriate candidate for the procedure. [facility] Plan of care note Problem: Pain Goal: Patient goal is pain score less than 4, able to rest, and participant in treatment plan as appropriate Description: INTERVENTIONS: 1. Encourage patient or legal sales representative health insurance to report early pain and ask for [...] per policy 9. Teach patient or legal sales representative health insurance interventions for comforting Outcome: Progressing Note: Evaluation [...] at the bedside 7. Instruct patient/ patient sales representative health insurance about use of safety devices 8. Include patient/ patient sales representative health insurance in decisions related to safety Outcome: Progressing [...] hygiene technique 7. Identify and instruct patient/patient sales representative health insurance in use of appropriate isolation precautions for identified infection/symptoms 8. Provide and discuss with patient/patient sales representative health insurance on educational MDRO sheet 9. Encourage and monitor nutritional status daily and consult flue blower if indicated 10. Implement neutropenic guidelines as needed 11. Review exposure to history of communicable disease and recent travel history on admission 12. Encourage annual influenza vaccine 13. Encourage pneumonia vaccine Outcome: Progressing Note: Evaluation of progress towards goal: Patient afebrile and WBC of 5.3. Will continue to monitor for signs of infection Problem: Knowledge Deficit Goal: Patient/patient sales representative health insurance demonstrates understanding of disease process, treatment plan, [...] develop effective communication strategies 4. Include patient/patient sales representative health insurance in decisions related to communication Outcome: Progressing [...] supplement as ordered 13. Collaborate with clinical flue blower 14. Include patient/ patient's sales representative health insurance in decisions related to nutrition Outcome: Progressing Note: Evaluation of progress towards goal: Collaborating with interdisciplinary team to ensure adequate nutritional intake. Problem: Moderate - High Risk Fall Score Description: Beal Fall Score of =/> 25 or indicated by [facility] Assessment Goal: Patient should be free from fall Description: Interventions: 1. [place] to environment 2. Hourly rounds addressing the [...] non-skid footwear 11. Teach patient and patient sales representative health insurance to maintain environment for safety and engage [...] (cane, walker) within reach 19. Request patient sales representative health insurance bring adaptive equipment/mobility aids from home or obtain and provide as needed 20. Consult pharmacy regarding effects of med's affecting mobility, cognition, and alternatives 21. Obtain physician order for PT if risk factors associated with mobility are present 22. Obtain physician order for OT as appropriate 23. Utilize diversional activities 24. Educate patient and patient sales representative health insurance how to maintain a safe environment during visitation times (notify nurse prior to leaving bedside) 25. Consider appropriateness of medical or non-medical insurance collector 26. Set up voiding schedule as appropriate (every 2 hours) Outcome: Progressing Note: Evaluation of progress towards goal: Area clear of hazards. Bed locked and in lowest position. Side rails up. Hourly rounding complete. Pt remains free from falls at this time. [facility] 10-13-2023 Plan of care note Problem: Pain Goal: Patient goal is pain score less than 4, able to rest, and participant in treatment plan as appropriate Description: INTERVENTIONS: 1. Encourage patient or legal sales representative health insurance to report early pain and ask for [...] per policy 9. Teach patient or legal sales representative health insurance interventions for comforting Outcome: Progressing Note: Evaluation [...] at the bedside 7. Instruct patient/ patient sales representative health insurance about use of safety devices 8. Include patient/ patient sales representative health insurance in decisions related to safety Outcome: Progressing [...] hygiene technique 7. Identify and instruct patient/patient sales representative health insurance in use of appropriate isolation precautions for identified infection/symptoms 8. Provide and discuss with patient/patient sales representative health insurance on educational MDRO sheet 9. Encourage and monitor nutritional status daily and consult flue blower if indicated 10. Implement neutropenic guidelines as needed 11. Review exposure to history of communicable disease and recent travel history on admission 12. Encourage annual influenza vaccine 13. Encourage pneumonia vaccine Outcome: Progressing Note: Evaluation of progress towards goal: Pt is afebrile at this time. Problem: Knowledge Deficit Goal: Patient/patient sales representative health insurance demonstrates understanding of disease process, treatment plan, [...] Score of =/> 25 or indicated by [facility] Assessment Goal: Patient should be free from fall Description: Interventions: 1. [place] to environment 2. Hourly rounds addressing the [...] non-skid footwear 11. Teach patient and patient sales representative health insurance to maintain environment for safety and engage [...] (cane, walker) within reach 19. Request patient sales representative health insurance bring adaptive equipment/mobility aids from home or obtain and provide as needed 20. Consult pharmacy regarding effects of med's affecting mobility, cognition, and alternatives 21. Obtain physician order for PT if risk factors associated with mobility are present 22. Obtain physician order for OT as appropriate 23. Utilize diversional activities 24. Educate patient and patient sales representative health insurance how to maintain a safe environment during visitation times (notify nurse prior to leaving bedside) 25. Consider appropriateness of medical or non-medical insurance collector 26. Set up voiding schedule as appropriate (every 2 hours) Outcome: Progressing Note: Evaluation of progress towards goal: Pt is free from falls at this time. [facility] Progress note Formatting of t his note might be different from the original. Pt comfortable. No chest pain. No sob on 2 L ECG without sig ST abn Tr 13 Continues on heparin/DAPT Ionized mg .24 NSTEMI 2. Acute on chronic heart failure Keep NPO as LHC may be considered Supplement mg before diuresing [facility] 10-13-2023 Plan of care note Problem: Pain Goal: Patient goal is pain score less than 4, able to rest, and participant in treatment plan as appropriate Description: INTERVENTIONS: 1. Encourage patient or legal sales representative health insurance to report early pain and ask for [...] per policy 9. Teach patient or legal sales representative health insurance interventions for comforting Outcome: Progressing Note: Evaluation [...] at the bedside 7. Instruct patient/ patient sales representative health insurance about use of safety devices 8. Include patient/ patient sales representative health insurance in decisions related to safety Outcome: Progressing [...] hygiene technique 7. Identify and instruct patient/patient sales representative health insurance in use of appropriate isolation precautions for identified infection/symptoms 8. Provide and discuss with patient/patient sales representative health insurance on educational MDRO sheet 9. Encourage and monitor nutritional status daily and consult flue blower if indicated 10. Implement neutropenic guidelines as needed 11. Review exposure to history of communicable disease and recent travel history on admission 12. Encourage annual influenza vaccine 13. Encourage pneumonia vaccine Outcome: Progressing Note: Evaluation of progress towards goal: Pt afebrile and no outward signs of infection during shift. Problem: Knowledge Deficit Goal: Patient/patient sales representative health insurance demonstrates understanding of disease process, treatment plan, [...] develop effective communication strategies 4. Include patient/patient sales representative health insurance in decisions related to communication Outcome: Progressing [...] Collaborate with ancillary departments 14. Include patient/patient sales representative health insurance in decisions related to anxiety Outcome: Progressing [...] to assist with coping 8. Involve patient's sales representative health insurance in care Outcome: Progressing Note: Evaluation of [...] supplement as ordered 13. Collaborate with clinical flue blower 14. Include patient/ patient's sales representative health insurance in decisions related to nutrition Outcome: Progressing [...] be free from fall Description: Interventions: 1. Gordon to environment 2. Hourly rounds addressing the [...] non-skid footwear 11. Teach patient and patient sales representative health insurance to maintain environment for safety and engage [...] (cane, walker) within reach 19. Request patient sales representative health insurance bring adaptive equipment/mobility aids from home or obtain and provide as needed 20. Consult pharmacy regarding effects of med's affecting mobility, cognition, and alternatives 21. Obtain physician order for PT if risk factors associated with mobility are present 22. Obtain physician order for OT as appropriate 23. Utilize diversional activities 24. Educate patient and patient sales representative health insurance how to maintain a safe environment during visitation times (notify nurse prior to leaving bedside) 25. Consider appropriateness of medical or non-medical insurance collector 26. Set up voiding schedule as appropriate (every 2 hours) Outcome: Progressing Note: Evaluation of progress towards goal: No signs of falls during shift. [employer] 10-12-2023 History and physical note Images from the original note were not included. [facility] [address] [place] [address] HISTORY & PHYSICAL / CONSULT NOTE Ashvin [...] found to be in CHF with proBNP 02257, HS trop 78433, and K 2.1 which was repleted but [...] Past Medical History: Diagnosis Date Angina pectoris ([facility] Atherosclerosis of coronary artery bypass graft Atherosclerotic heart disease Coronary angioplasty status Coronary artery disease CVA (cerebral vascular accident) ([facility]) Dyspnea Hyperlipidemia Hypertension Hypotension Other chest pain Stroke ([facility]) Previous Surgical History: Past Surgical History: Procedure Laterality Date CARDIAC CATHETERIZATION Cardiac catheterization N/A 02/15/2023 Performed by Star Espinosa MD at [facility] C[facility]ATH [facility] Cardiac catheterization - LV cors w/graft check N/A 10/25/2020 Performed by Alexi Freeman MD at [facility]ATH [facility] Coronary angiogram and graft/[place] N/A 02/15/2023 Performed by Star Espinosa MD at [facility]ATH [facility] Coronary angiogram and left ventricular gram/pressure + graft/[place] N/A 10/25/2020 Performed by Alexi Freeman MD at [facility]ATH [facility] Coronary angiogram and left ventricular gram/pressure + graft/[place] N/A 06/18/2016 Performed by Alexi Freeman MD at [facility]ATH [facility] CORONARY ANGIOPLASTY 12/08/2020 orbital atherectomy and 2 HARRY to prox and distal Circ, at [facility] per Dr. Madhav Ugalde CORONARY ARTERY BYPASS GRAFT 09/08/2014 HYSTERECTOMY INSERTION LOOP RECORDER 05/24/2016 Percutaneous coronary angioplasty left circumflex N/A 02/15/2023 Performed by Star Espinosa MD at [facility]ATH [facility] Stent drug-eluting left circumflex N/A 02/15/2023 Performed by Star Espinosa MD at [facility]ATH [facility] Allergies: Allergies Allergen [...] John APRN-SUNIL [START ON 10/13/2023] heparin infusion 93949 units/500 mL in 0.45% NaCl (50 units/mL premix) 300-3,500 Units/hr intravenous Continuous Parul John APRN-SUNIL magnesium sulfate IVPB 2000 mg/50 mL in iso-osmotic water (40 mg/mL premix) 2,000 mg intravenous PRN Parul R Jeb, CLINICAL STAFF RN-WEATHERIZATION OPERATIONS MANAGER Or magnesium sulfate IVPB 4000 mg/100 mL in iso-osmotic water (40 mg/mL premix) 4,000 mg intravenous PRN Parul R Jeb, CLINICAL STAFF RN-WEATHERIZATION OPERATIONS MANAGER potassium chloride (K-TAB,KLOR-CON) CR tablet 20-50 mEq 20-50 mEq oral PRN Parul R Jeb, CLINICAL STAFF RN-WEATHERIZATION OPERATIONS MANAGER Or potassium chloride (KAYCIEL) 20 mEq/15 mL solution 20-50 mEq 20-50 mEq oral PRN Parul R Jeb, CLINICAL STAFF RN-WEATHERIZATION OPERATIONS MANAGER potassium chloride IVPB 10 mEq/50 mL in water (0.2 mEq/mL premix) 10 mEq intravenous PRN Parul R Jeb, CLINICAL STAFF RN-WEATHERIZATION OPERATIONS MANAGER Or potassium chloride IVPB 10 mEq/100 mL in water (0.1 mEq/mL premix) 10 mEq intravenous PRN Praul R Jeb, CLINICAL STAFF RN-WEATHERIZATION OPERATIONS MANAGER sodium phosphate 20 mmol in sodium chloride 0.9 % 250 mL IVPB 20 mmol intravenous PRN Parul R Jeb, CLINICAL STAFF RN-WEATHERIZATION OPERATIONS MANAGER Or sodium phosphate 20 mmol in sodium chloride 0.9 % 100 mL IVPB 20 mmol intravenous PRN Parul R Jeb, CLINICAL STAFF RN-WEATHERIZATION OPERATIONS MANAGER Or sod phos di, mono-K phos mono (K-PHOS NEUTRAL) 250 mg tablet 2 tablet 2 tablet oral PRN Parul R Jeb, CLINICAL STAFF RN-WEATHERIZATION OPERATIONS MANAGER sodium chloride 0.9 % infusion 10 mL/hr intravenous Continuous PRN Parul R Jeb, CLINICAL STAFF RN-WEATHERIZATION OPERATIONS MANAGER sodium chloride 0.9 % infusion 10 mL/hr intravenous Continuous PRN Parul R Jeb, CLINICAL STAFF RN-WEATHERIZATION OPERATIONS MANAGER sodium chloride 0.9 % infusion 10 mL/hr intravenous Continuous PRN Parul R Jeb, CLINICAL STAFF RN-WEATHERIZATION OPERATIONS MANAGER Home Meds: Prior to Admission medications Medication [...] be continued indefinitely given significant disease in [place] coronary arteries. Optimize medical therapy for coronary [...] be continued indefinitely given significant disease in [place] coronary arteries. Optimize medical therapy for coronary [...] Acute on chronic HFrEF Elevated HS troponin 78153 ASCVD h/o CABG and s/p PCI Cx [...] (20 mg/mL premix) 2,000 mg intravenous PRN CHRE Rincon Or calcium gluconate 3,000 mg in sodium chloride 0.9 % 100 mL IVPB 3,000 mg intravenous PRN Parul R Jeb, CLINICAL STAFF RN-WEATHERIZATION OPERATIONS MANAGER clopidogreL (PLAVIX) tablet 75 mg 75 mg oral Daily Parul John, CLINICAL STAFF RN-WEATHERIZATION OPERATIONS MANAGER dextrose (GLUTOSE) 40 % gel 15 g 15 g oral PRN Parul Hassann, CLINICAL STAFF RN-WEATHERIZATION OPERATIONS MANAGER dextrose 5 % (D5W) infusion 100 mL/hr intravenous Continuous PRN Parul Hassann, CLINICAL STAFF RN-WEATHERIZATION OPERATIONS MANAGER dextrose 50 % in water (D50W) 50% solution 25 mL 25 mL intravenous PRN Parul John, CLINICAL STAFF RN-WEATHERIZATION OPERATIONS MANAGER glucagon HCL injection 1 mg 1 mg intramuscular PRN Parul Hassann, CLINICAL STAFF RN-WEATHERIZATION OPERATIONS MANAGER heparin (porcine) injection 2,000 Units 2,000 Units intravenous PRN Parul Holder Jeb, CLINICAL STAFF RN-WEATHERIZATION OPERATIONS MANAGER heparin infusion 27929 units/500 mL in 0.45% NaCl (50 units/mL premix) 300-3,500 Units/hr intravenous Continuous Parul Hassann, CLINICAL STAFF RN-WEATHERIZATION OPERATIONS MANAGER 16 mL/hr at 10/13/23 0013 800 Units/hr at 10/13/23 0013 magnesium sulfate IVPB 2000 mg/50 mL in iso-osmotic water (40 mg/mL premix) 2,000 mg intravenous PRN Parul Holder Jeb, CLINICAL STAFF RN-WEATHERIZATION OPERATIONS MANAGER Or magnesium sulfate IVPB 4000 mg/100 mL in iso-osmotic water (40 mg/mL premix) 4,000 mg intravenous PRN Parul John, CLINICAL STAFF RN-WEATHERIZATION OPERATIONS MANAGER midodrine (PROAMATINE) tablet 5 mg 5 mg oral Q8H PRN Parul Hassann, CLINICAL STAFF RN-WEATHERIZATION OPERATIONS MANAGER potassium chloride (K-TAB,KLOR-CON) CR tablet 20-50 mEq 20-50 mEq oral PRN Parul Hassann, CLINICAL STAFF RN-WEATHERIZATION OPERATIONS MANAGER Or potassium chloride (KAYCIEL) 20 mEq/15 mL solution 20-50 mEq 20-50 mEq oral PRN Parul Holder Jeb, CLINICAL STAFF RN-WEATHERIZATION OPERATIONS MANAGER potassium chloride IVPB 10 mEq/50 mL in water (0.2 mEq/mL premix) 10 mEq intravenous PRN Parul R Jeb, CLINICAL STAFF RN-WEATHERIZATION OPERATIONS MANAGER Or potassium chloride IVPB 10 mEq/100 mL in water (0.1 mEq/mL premix) 10 mEq intravenous PRN Parul Hassann, CLINICAL STAFF RN-WEATHERIZATION OPERATIONS MANAGER ranolazine (RANEXA) 12 hr tablet 1,000 mg 1,000 mg oral BID Parul R Jeb, CLINICAL STAFF RN-WEATHERIZATION OPERATIONS MANAGER rosuvastatin (CRESTOR) tablet 20 mg 20 mg oral Daily Parul R Jeb, CLINICAL STAFF RN-WEATHERIZATION OPERATIONS MANAGER sodium phosphate 20 mmol in sodium chloride 0.9 % 250 mL IVPB 20 mmol intravenous PRN Parul R Jeb, CLINICAL STAFF RN-WEATHERIZATION OPERATIONS MANAGER Or sodium phosphate 20 mmol in sodium chloride 0.9 % 100 mL IVPB 20 mmol intravenous PRN Parul R Jeb, CLINICAL STAFF RN-WEATHERIZATION OPERATIONS MANAGER Or sod phos di, mono-K phos mono (K-PHOS NEUTRAL) 250 mg tablet 2 tablet 2 tablet oral PRN Parul R Jeb, CLINICAL STAFF RN-WEATHERIZATION OPERATIONS MANAGER sodium chloride 0.9 % infusion 10 mL/hr intravenous Continuous PRN Parul R Jeb, CLINICAL STAFF RN-WEATHERIZATION OPERATIONS MANAGER sodium chloride 0.9 % infusion 10 mL/hr intravenous Continuous PRN Parul R Jeb, CLINICAL STAFF RN-WEATHERIZATION OPERATIONS MANAGER sodium chloride 0.9 % infusion 10 mL/hr intravenous Continuous PRN Parul R Jeb, CLINICAL STAFF RN-WEATHERIZATION OPERATIONS MANAGER Laboratory CBC: BMP: Troponin I Physical Exam [...] This note was completed using a voice consultant education system. Every effort was made to ensure accuracy. However, inadvertent computerized consultant education errors may be present. [employer] Work Phone: 10-12-2023 History of Present illness Narrative Images from the original note were not included. [facility] Significant Event Note I am on-call covering for my group today. I am at [facility]. This patient presented to the ER at [facility]. I was paged, called back promptly, spoke to ER provider, reviewed EMR, discussed case, provided recommendations as detailed below. 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 History of CABG and subsequent HARRY Profound hypokalemia 2.1 in the ER at [facility] receiving replacements COVID test was negative at [facility] Given profound hypokalemia and risk for spontaneous malignant arrhythmia recommend admission to the ICU or CCU Access transfer team is working on the transfer arrangements and logistics as well as bed availability here at [facility] Recommend to the ER that patient needs to receive ICU dosing oral and IV potassium to replenish her total body potassium depletion She is on torsemide at home and she will need to be on a potassium supplement She will receive anti heart failure therapies while here in [facility] as well as medical therapy for CAD and cardiomyopathy I discussed with ER provider and access transfer team as well as updated the night team covering here at [facility] and the arrangements have been made for patient to be transferred pending the logistics and bed availability Please contact our cardiology service if any changes in patient's status overnight Thank you Jonathan Pizarro DO, FACC, FACOI This note was completed using a voice consultant education system. Every effort was made to ensure accuracy. However, inadvertent computerized consultant education errors may be present. documented in this encounter [employer] 08-22-2023 Telephone encounter Note Patient left message [...] not need a different prescription sent in. [facility] 08-22-2023 Miscellaneous Notes Patient [...] prescription sent in. documented in this encounter [facility] 08-21-2023 History of Present [...] Bilateral FRANCIS/PVR study performed on 05-29-2023 at [email or web address] showed: FRANCIS is falsely elevated suggesting medial [...] decisions I made. 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 Hip surgery was [...] 06/25/2023 11:28 AM Patient: Ashvin Rene MR#: [id number] : 1955 Age: 67 y.o. Referring Physician: [...] capsule by mouth daily. Ergocalciferol 1.25 MG (63002 UT) capsule Take 1 capsule by mouth [...] 06/25/2023 11:28 AM Patient: Ashvin Rene MR#: [id number] : 1955 Age: 67 y.o. Referring Physician: [...] [x]cane, []bracing Are you followed by a drug abuse treatment specialist? [x] [] Name: Dr. Ryan Gordon [...] capsule by mouth daily. Ergocalciferol 1.25 MG (62692 UT) capsule Take 1 capsule by mouth [...] daily., Disp: , Rfl: Ergocalciferol 1.25 MG (71663 UT) capsule, Take 1 capsule by mouth [...] Rfl: No Known Allergies documented in this [facility]11-07-2022 Evaluation note* Encounter Date Diagnosis Assessment [...] Other Skin wound mate roque was printed [employer] Other 02-02-2022 Note [id number]22 NoteEducation Materials Obstetrics and Gynecology Edema [...] fluid you drink (fluid restriction). ? Take kauh-khb-rngtnzr and prescription medicines only as told by [...] provider. Document Revised: 07/03/2018 Document Reviewed: 07/18/2017 [employer] Patient Education ? 2019 [email or web address] Note [facility] Clinical Discharge Summary PERSON INFORMATION Name ASHVIN RENE Age 65 Years 1955 Sex FEMALE Language Vietnamese PCP TUSHAR SOLANO JR. Marital Status Med Service Med/Surg Acct# Arrival 08/06/2021 17:10:50 Visit Reason ANEMIA, ELEVATED TROPONIN Acuity LOS 007 15:53 Address: [address] [place] [address] Comment: PROVIDER INFORMATION VITALS INFORMATION Vital Sign [...] Medication List: New Medications [facility], [address] [place] [address] [phone], [phone] ferrous sulfate (ferrous sulfate 325 mg (65 mg elemental iron) oral tablet) 1 tab(s) Oral 2 times aday for 30 Days. Refills: 1. torsemide (torsemide 20 mg oral tablet) 1 tab(s) Oral every other day for 30 Days. [facility]. Refills: 1. Medications That Were Updated - Follow Below Instructions Other Medications Updated: fludrocortisone (fludrocortisone 0.1 mg oral tablet) 0.5 tab(s) Oral every day. TAKE IN MORNING MEAL, HOLD IF STANDING BP [id number]. Medications to Continue That Have Not Changed [...] mg oral tablet) potassium chloride (Potassium Chloride (Vwy-Qoiw-Tgg 10) 10 mEq oral tablet, extended release) [...] range between ( 1.3 and 2.9 ) [place] Abs#: 0.4 x103/mcL -- Normal range between ( 0.0 and 0.8 ) Auto Baso %: 1.0 % -- Normal range between ( 0.2 and 2.0 ) Auto [place] %: 7 % -- Normal range between [...] ( 101 and 111 (more content not included)...[facility] [id number] NoteDATE OF PROCEDURE: 08/10/2021 SURGEON: Noe Reed MD ANESTHESIA: Rony Ordonez MD ([facility]) PREOPERATIVE DIAGNOSIS: GI-bleed. [...] well. She will be returned to the [address] [place] [address]. We will await the pathology results. Noe Reed M.D. JOB #: [id number] nery CC: Tushar Solano MD [Electronically Signed on: 08/22/2021 08:54 EST] Noe Reed MD [Verified on: 08/22/2021 08:54 EST] Noe Reed MD [Transcribed on: 08/10/2021 12:12 EST] [facility]09-30-2021 Evaluation note* Encounter Date Diagnosis Assessment Notes Treatment Notes Treatment Clinical Notes Mar, Nausea & vomiting (ICD-10 - R11.2) Nausea and vomiting: adult material was printed Mar, Epigastric pain (ICD-10 - R10.13) [employer] Other 05-28-2021 NoteHNO ID: [id number] Author: Jaimee Pierce RN Service: Care Management [...] 08, 2020 TIME: 10:58 AM PAGER/CONTACT #: [phone] NoteHNO ID: [id number] Author: Jaimee Pierce RN Service: Care Management [...] 08, 2020 TIME: 9:57 AM PAGER/CONTACT #: [phone]05-27-2021 NoteHNO ID: [id number] Author: Nay Joseph MD Service: ? Author [...] Could not cross stenoses with Finecross or Applyful flex 135 mm microcatheters. 7Fr Telescope guide [...] No further targets for coronary revascularization. 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 Milli Foster and Dr. Erika Kohler)[facility]05-27-2021 NoteProcedure (CATHMN) ASHVIN RENE ([id number]) 1955 F Date Time Provider Department 12/07/20 NAY JOSEPH CATHMD During your visit today, we recorded the [...] No further targets for coronary revascularization. 2. nursing home DAPT STAFF PHYSICIAN: Dirk Joseph MD DATE OF SERVICE: 12/07/2020 TIME OF SERVICE: 6:19 PM (Procedure performed with Dr. Milli Foster and Dr. Erika Kohler) Allergies As of Date: 12/07/2020 Noted Allergy Reaction CODEINE 11/24/2020 1 - Mental Status Change 4 - Hives Date Reviewed: 11/24/2020 Reviewed by: Demetra Guadalupe RN - Fully Assessed Primary Visit Diagnosis:Coronary artery disease of [place] artery of [place] heart with stable angina pectoris (HCC) [I25.118] [...] 12/07/2020 Noted Resolved Coronary artery disease of [place] artery of otilio*11/24/2020 S/P CABG (coronary artery bypass graft) [Z95.1] 11/24/2020 Pure hypercholesterolemia [E78.00] (more content not included)... [facility]05-27-2021 NoteHNO ID: [id number] Author: Milli Foster MD Service: Cardiovascular Medicine [...] Milli Foster MD Fellow, Interventional Cardiology Pager: [phone] 12/08/2020 11:34 [facility]05-14-2021 NoteHNO ID: [id number] Author: Nay Joseph MD Service: ? Author Type: Physician Type: Progress Notes Filed: 11/29/2020 7:54 AM Note Text: [facility] Department of Cardiovascular Medicine SECTION OF INTERVENTIONAL CARDIOLOGY OUTPATIENT VISIT DATE November 23, 2020 OUTPATIENT VISIT TYPE NEW PRIMARY CARE PHYSICIAN: Tushar Solano Jr, DO (Dr) [address] [place] [address] [place] [address] REFERRING PHYSICIAN: Waqas Mabry MD [facility] [place] [address] [facility] [address] CHIEF COMPLAINT: No chief complaint on file. [...] resolved after CABG) 2015 CVA and (?) HI 05/24/16 Echo ? Normal left ventricular end-diastolic [...] Date of : 1955 Patient phone number: [phone] Referring Provider for the encounter: Dr Waqas Mabry Requesting Provider: Cardiology Reason for requesting visit (RFV/signs and symptoms/diagnosis): 2nd Opinion - Severe CAD Person calling: caregiver: ERIC Return call to: self Medical Records/Insurance Card scanned into [employer]: Yes Comments: N/A documented in this [facility]Eval[facility] [place] noteNo InformationNortRothman [facility] [place] Other Evaluation noteNo assessment information available 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)- Primary Gangrene (CMS/HCC) Gangrene Pain in toe of right foot Pain in soft tissues of limb Arteriosclerosis of arteries of extremities (CMS/HCC) [facility] Diagnosis Stenosis of left carotid artery Occlusion and stenosis of carotid artery without mention of cerebral infarction Stenosis of left carotid artery- Primary Occlusion and stenosis of carotid artery without mention of cerebral infarction documented [facility]* Diagnosis Decompensated heart failure (CMS-HCC)- Primary NSTEMI (non-ST elevated myocardial infarction) (CMS-HCC) Acute myocardial infarction, subendocardial infarction, episode of care unspecified Decompensated heart failure (CMS-HCC) NSTEMI (non-ST elevated myocardial infarction) (CMS-HCC) Acute myocardial infarction, subendocardial infarction, episode of care unspecified NSTEMI (non-ST elevated myocardial infarction) (CMS-HCC) Acute myocardial infarction, subendocardial infarction, episode of care unspecified documented in this encounter [facility] SystemHistory general Narrative - Reported* Type Description Date Medical History Cholesterol Medical History heart disease Medical History hypertension Surgical History left hip Surgical History stomach Surgical History heart stent Surgical History bypass Surgical History gastric bypass Hospitalization History see above [facility] [facility] Other InstructionsNot on filedocumented in this encounter [facility] SystemInstructionsNot on filedocumented in this encounter [facility] SystemReason for referral (narrative)* Consultation (Routine) - Pending Review Specialty Diagnoses / Procedures Referred By Teofilo t Referred To Contact Cardiology Diagnoses NSTEMI (non-ST elevated myocardial infarction) ([facility]) Decompensated heart failure ([facility]) Kallie Roman MD [address], [address] [place] [id number] [facility] [address] [place] [address] Referral ID Status Reason Start Date Expiration Date Visits Requested Visits Authorized [id number] Pending Review Specialty Services Required 10/15/2023 10/14/2024 1 1 * Misc (Routine) - Pending Review Specialty Diagnoses / Procedures Referred By Contac t Referred To Contact Procedures Discharge Follow-Up Kallie Roman MD [address], [address] [place] [phone] Referral ID Status Reason Start Date Expiration Date V isits Requested Visits Authorized [id number] Pending Review 10/15/2023 10/14/2024 1 1 * Misc (Routine) - Pending Review Specialty Diagnoses / Procedures Referred By Contac t Referred To Contact Diagnoses NSTEMI (non-ST elevated myocardial infarction) ([facility]) Decompensated heart failure ([facility]) Procedures Follow-up with primary care provider Kallie Roman MD [address], [address] [place] [address] Referral ID Status Reason Start Date Expiration Date V isits Requested Visits Authorized [id number] Pending Review 10/15/2023 10/14/2024 1 1 * Misc (Routine) - Pending Review Specialty Diagnoses / Procedures Referred By Contac t Referred To Contact Procedures No dressing needed Kallie Roman MD [address], [address] [place] [place] [address] Referral ID Status Reason Start Date Expiration Date V isits Requested Visits Authorized [id number] Pending Review 10/15/2023 10/14/2024 1 1 * Misc (Routine) - Pending Review Specialty Diagnoses / Procedures Referred By Contac t Referred To Contact Procedures Adult Kallie Ashley MD [address] [address] Referral ID Status Reason Start Date Expiration Date V isits Requested Visits Authorized [id number] Pending Review 10/15/2023 10/14/2024 1 1 [facility] Advance Directives No Advanced Directives Records Found [...] worsening of your eyesight. Please call your hosiery mender during normal business hours. If after business hours call Dr. Deng Humphreys at his cell [phone] or his office [phone]. Summary Purpose Reason for Referral Specialty Diagnoses / Procedures Referred By Teofilo serrato Referred To Contact Diagnoses Stenosis of left carotid artery Procedures Vas carotid duplex bilateral Mariama Veras MD [address] [facility] [place] [address] [facility] [address] [place] [address] Phone: [phone] Referral ID Status Reason Start Date Expiration Date Visits Re quested Visits Authorized [id number] Closed 10/06/2023 10/05/2024 1 1 Specialty Diagnoses / Procedures Referred By Teofilo serrato Referred To Contact Diagnoses Left knee pain, unspecified chronicity Norman Braga MD [address] [place] [address] Referral ID Status Reason Start Date Expiration Date V isits Requested Visits Authorized [id number] New Request 06/25/2023 07/19/2024 1 1 Scheduling Instructions . Specialty Diagnoses / Procedures Referred By Contac t Referred To Contact Diagnoses Left knee pain, unspecified chronicity Procedures XR KNEE LEFT 4+ VIEWS Norman Braga MD [address] [place] [phone] Referral ID Status Reason Start Date Expiration Date V isits Requested Visits Authorized [id number] Pending Review 06/18/2023 07/12/2024 1 1 Specialty Diagnoses / Procedures Referred By Contac t Referred To Contact Diagnoses Left knee pain, unspecified chronicity Procedures XR BONE LENGTH STUDY Norman Braga MD [address] [place] [id number] Referral ID Status Reason Start Date Expiration Date V isits Requested Visits Authorized [id number] Pending Review 06/18/2023 07/12/2024 1 1 Additional Source Comments Source Comments (unrecognize d section and content) In the event this informatio n is protected by the Federal Confidentiality of Alcohol and Drug Abuse Patient Records regulations: The Federal rules restrict any use of the information to criminally investigate or prosecute any alcohol or drug abuse patient.[facility] Reason for Visit (unrecogniz ed section and content) Reason Comments External Referrals/resources Specialty Diagnoses / Procedures Referred By Contac t Referred To Contact Diagnoses Left knee pain, unspecified chronicity Procedures XR BONE LENGTH STUDY Norman Braga MD [address] [place] [phone] Referral ID Status Reason Start Date Expiration Date V isits Requested Visits Authorized [id number] Pending Review 06/18/2023 07/12/2024 1 1 Reason Comments Pain Reason Onset Date Comments Santyl 08/22/2023 Specialty Diagnoses / Procedures Referred By Contac t Referred To Contact Diagnoses Decompensated heart failure ([facility]) CHF (congestive heart failure) ([facility]) Decompensated Heart Failure, Severe Hypokalemia Jonathan Pizarro DO [address] [place] [address] Referral ID Status Reason Start Date Expiration Date Visits Re quested Visits Authorized [id number] 1 1 INFORMATION SOURCE (unrecogn ized section and content) DATE CREATED AUTHOR 03/12/2021 [facility] DATE CREATED AUTHOR AUTHOR'S ORGANIZ ATION 08/13/2021 [facility] DATE CREATED AUTHOR AUTHOR'S ORGANIZ ATION 09/26/2021 [facility] DATE CREATED AUTHOR AUTHOR'S ORGANIZ ATION 10/20/2022 [facility] DATE CREATED AUTHOR AUTHOR'S ORGANIZ ATION 07/04/2023 [facility] DATE CREATED AUTHOR AUTHOR'S ORGANIZ ATION 08/20/2023 [facility] DATE CREATED AUTHOR AUTHOR'S ORGANIZ ATION 10/16/2023 [facility] DATE CREATED AUTHOR AUTHOR'S ORGANIZ ATION 10/18/2023 [facility] DATE CREATED AUTHOR AUTHOR'S ORGANIZ ATION 10/25/2023 [facility] DATE CREATED AUTHOR AUTHOR'S ORGANIZ ATION 02/19/2024 [facility] dical Specialists EPIC Care Teams (unrecognized [...] Provider Active ZAC Renae Attending Provider Active Anatomical Embalmer Relationship Specialty Start Date End Date Tushar Solano Jr., DO [address] [place] [id number] PCP - General Internal Medicine 05/28/23 Anatomical Embalmer Relationship Specialty Start Date End Date Tushar Solano Jr., DO [address] [place] [phone] PCP - General Internal Medicine 05/28/23 Anatomical Embalmer Relationship Specialty Start Date End Date Tushar Solano MD [address] [place] [phone] PCP - General Internal Medicine 04/08/23 Anatomical Embalmer Relationship Specialty Start Date End Date Tushar Solano MD [address] [place] [phone] PCP - General Internal Medicine 04/08/23 Anatomical Embalmer Relationship Specialty Start Date End Date Tushar Solano MD [address] [place] [address] [phone] PCP - General Internal Medicine 04/08/23 Anatomical Embalmer Relationship Specialty Start Date End Date Tushar Solano Jr., DO [address] [place] [phone] PCP - General Internal Medicine 05/24/16 Anatomical Embalmer Relationship Specialty Start Date End Date Tushar Solano Jr., [address] [place] [address] [phone] PCP - General Internal Medicine 05/24/16 Anatomical Embalmer Relationship Specialty Start Date End Date Tushar Solano Jr., DO [address] [place] [address] [phone] PCP - General Internal Medicine 05/24/16 Goals (unrecognized section and content) Goals may be documented in a n alternate section Scheduled Active and Recently Administ ered Medications (unrecognized section and content) Medication Order 10/13/2023 10/14/2023 10/15/2023 aspirin chewable tablet 81 mg 81 mg, oral, Daily, First dose on Fri10/13/23 at 0900 0830 (Given - Provider: Gely Chua RN) 0729 (BANNER Hold - Provider: Automatic Transfer Provider - Reason: Patient not available)0900 (Dose Auto Held - Provider: Automatic Transfer Provider)0917 (BANNER Unhold - Provider: Automatic Transfer Provider) 0958 [...] (Given - Provider: Gely Chua RN) 0729 (BANNER Hold - Provider: Automatic Transfer Provider - Reason: Patient not available)0900 (Dose Auto Held - Provider: Automatic Transfer Provider)0917 (BANNER Unhold - Provider: Automatic Transfer Provider)1021 (Given - Provider: Gely Chua RN) 0958 (Given - Provider: David Florez RN) collagenase (SANTYL) ointment 1 Application 1 Application, topical, Daily, First dose on Fri10/13/23 at 1500, Apply to thigh wound . 2034 (Given - Provider: Jolene Almaguer RN) 0729 (BANNER Hold - Provider: Automatic Transfer Provider - Reason: Patient not available)0900 (Dose Auto Held - Provider: Automatic Transfer Provider)0917 (BANNER Unhold - Provider: Automatic Transfer Provider) 1000 [...] 0347 (Given - Provider: Jolene Almaguer RN)0729 (BANNER Hold - Provider: Automatic Transfer Provider - Reason: Patient not available)0917 (BANNER Unhold - Provider: Automatic Transfer Provider) furosemide [...] Entry - Provider: Gely Chua RN) 0729 (BANNER Hold - Provider: Automatic Transfer Provider - Reason: Patient not available)0917 (BANNER Unhold - Provider: Automatic Transfer Provider) metoprolol succinate XL (TOPROL XL) 24 hr tablet 25 mg (CANCELED) 25 mg, oral, Daily, First dose on Fri10/13/23 at 1630, Look-alike/sound-alike medication - verify indication for use. Do not crush or chew. 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 728 (BANNER Hold - Provider: Automatic Transfer Provider - Reason: Patient not available)09 (BANNER Unhold - Provider: Automatic Transfer Provider) dextrose 5 % (D5W) infusion 100 mL/hr, intravenous, Continuous PRN, blood glucose less than 70 mg/dL, Starting on 10/12/23 at 2321, Use immediately following dextrose 50% or glucagon treatment for patients who are unconscious or NPO. Contact prescriber for additional orders. If blood glucose is not greater than 70 mg/dL after initial treatment, repeat treatment. 728 (BANNER Hold - Provider: Automatic Transfer Provider - Reason: Patient not available)916 (BANNER Unhold - Provider: Automatic Transfer Provider) dextrose [...] treatment. VESICANT (RED) Warning: HYPERTONIC solution. 728 (BANNER Hold - Provider: Automatic Transfer Provider - Reason: Patient not available)916 (BANNER Unhold - Provider: Automatic Transfer Provider) diphenhydrAMINE (BENADRYL) injection 50 mg(Linked Group 2) 50 mg, intravenous, As needed, for previously documented contrast allergy, Starting on Fri10/13/23 at 1118, Scheduling/ADT, Administer one hour prior to procedure Look-alike/sound-alike medication - verify indication for use. 728 (BANNER Hold - Provider: Automatic Transfer Provider - Reason: Patient not available)09 (BANNER Unhold - Provider: Automatic Transfer Provider) fentaNYL [...] (See Alternative - Provider: Gely Chua, RN)0729 (BANNER Hold - Provider: Automatic Transfer Provider - Reason: Patient not available)0917 (BANNER Unhold - Provider: Automatic Transfer Provider) 0605 [...] medication - verify indication for use. 0729 (BANNER Hold - Provider: Automatic Transfer Provider - Reason: Patient not available)0917 (BANNER Unhold - Provider: Automatic Transfer Provider) nitroglycerin [...] over a minimum of 1 hour. 0729 (BANNER Hold - Provider: Automatic Transfer Provider - Reason: Patient not available)09 (BANNER Unhold - Provider: Automatic Transfer Provider) potassium [...] 1.2 = 40 mEq VESICANT (YELLOW) 07 (BANNER Hold - Provider: Automatic Transfer Provider - Reason: Patient not available)09 (BANNER Unhold - Provider: Automatic Transfer Provider) predniSONE [...] medication - verify indication for use. 0729 (BANNER Hold - Provider: Automatic Transfer Provider - Reason: Patient not available)09 (BANNER Unhold - Provider: Automatic Transfer Provider) sod [...] with a full glass of water. 07 (BANNER Hold - Provider: Automatic Transfer Provider - Reason: Patient not available)0917 (BANNER Unhold - Provider: Automatic Transfer Provider) sodium chloride 0.9 % flush 3 mL 3 mL, intravenous, As needed, line care, before and after each intermittent use, Starting on Fri10/14/23 at 0913 sodium chloride 0.9 % infusion 10 mL/hr, intravenous, Continuous PRN, to maintain patency of lines, Starting on 10/12/23 at 2321, Line #1 0729 (BANNER Hold - Provider: Automatic Transfer Provider - Reason: Patient not available)0917 (BANNER Unhold - Provider: Automatic Transfer Provider) sodium chloride 0.9 % infusion 10 mL/hr, intravenous, Continuous PRN, to maintain patency of lines, Starting on 10/12/23 at 2321, Line #2 0729 (BANNER Hold - Provider: Automatic Transfer Provider - Reason: Patient not available)0917 (BANNER Unhold - Provider: Automatic Transfer Provider) sodium chloride 0.9 % infusion 10 mL/hr, intravenous, Continuous PRN, to maintain patency of lines, Starting on 10/12/23 at 2321, Line #3 0729 (BANNER Hold - Provider: Automatic Transfer Provider - Reason: Patient not available)0917 (BANNER Unhold - Provider: Automatic Transfer Provider) sodium [...] complete. Infuse using central line access. 07 (BANNER Hold - Provider: Automatic Transfer Provider - Reason: Patient not available)0917 (BANNER Unhold - Provider: Automatic Transfer Provider) sodium [...] BE BASED ON THE PRIMARY CLINICAL RECORDS. [facility]. provides no warranty or guarantee of the accuracy or completeness of information in this document.
== END 2024-05-03 09:11 | disposition home or self-care (01) ==
LOC: EC 09:11
PROVIDERS: PCP Internal Medicine; Visit Provider Orthopaedic Surgery
DX: S32.512D Fracture of superior rim of left pubis, subsequent encounter for fracture with routine healing (principal); S72.001D Fracture of unspecified part of neck of right femur, subsequent encounter for closed fracture with routine healing
CPT/HCPCS: 73502

== ENCOUNTER 2024-06-14 09:35 | Outpatient (OUT) | payer MEDICARE, SELFPAY ==
--- NOTE | 2024-06-14 | XR_ITS ---
The [address] [address] Patient Name: ASHVIN RENE MRN: [id number] date: 1955 Sex: F Assigned Patient Location: Current Patient Location: Accession/Order Number: [id number] Exam Date: 06/14/2024 09:36 Report Date: 06/15/2024 06:34 At the request of: LAURIE ARTEAGA Procedure: XR hip RT 2V w/ pelvis PROCEDURE: XR hip RT 2V w/ pelvis HISTORY: RIGHT HIP PAIN COMPARISON: XR hip right 05/03/2024 FINDINGS: BONES:Prior bilateral femoral neck repair via surgical hardware. No appreciable change in alignment. Ongoing bone healing of the more recent right femoral neck fracture. SOFT TISSUES:Atherosclerotic disease. EFFUSION:None visible. OTHER: Negative. XR/XR hip RT 2V w/ pelvis IMPRESSION: 1. Stable alignment and ongoing bone healing of right femoral neck fracture. Electronically authenticated by: LAURIE MEJÍA Date: 06/15/2024 06:34
== END 2024-06-14 09:36 | disposition home or self-care (01) ==
LOC: EC 09:36
PROVIDERS: PCP Internal Medicine; Visit Provider Orthopaedic Surgery
DX: S72.001D Fracture of unspecified part of neck of right femur, subsequent encounter for closed fracture with routine healing (principal)
CPT/HCPCS: 73502

== ENCOUNTER 2024-08-25 10:23 | Outpatient (OUT) | payer MEDICARE, SELFPAY ==
[2024-08-25 10:49] LABS: Basophils Absolute Auto 0.1 10^3/uL (0.0-0.1); Basophils Percent Auto 0.8 % (0.2-2.0); Eosinophils Absolute Auto 0.1 10^3/uL (0.0-0.7); Eosinophils Percent Auto 1.4 % (0.9-7.0); Hematocrit 41.3 % (36.0-48.0); Hemoglobin 13.3 g/dL (12.0-16.0); Immature Granulocytes Abs Auto 0.01 10^3/uL (0.00-0.03); Immature Granulocytes Pct Auto 0.2 % (0.0-0.5); Lymphocytes Absolute Auto 1.5 10^3/uL (1.2-3.8); Lymphocytes Percent Auto 23.1 % (20.5-60.0); Mean Corpuscular HGB Conc 32.2 g/dL (29.9-35.2); Mean Corpuscular Hemoglobin 34.7 pg (26.7-34.0); Mean Corpuscular Volume 107.8 fL (81.0-99.0); Mean Platelet Volume 9.6 fL (9.5-13.5); Monocytes Absolute Auto 0.6 10^3/uL (0.3-0.8); Monocytes Percent Auto 9.7 % (1.7-12.0); Neutrophils Absolute Auto 4.2 10^3/uL (1.4-6.5); Neutrophils Percent Auto 64.8 % (43.0-75.0); Platelet Count 241 10^3/uL (150-450); Red Blood Count 3.83 10^6/uL (4.20-5.40); Red Cell Distribution Width 12.8 % (11.0-15.0); White Blood Count 6.4 10^3/uL (4.0-11.0)
--- OUTSIDE RECORDS SUMMARY | 2024-08-25 10:50 | XMS_ITS | CCD ---
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 Name Role Phone Tushar Solano Primary Care [...] Attending Unavailable VALONE, DR DE Admitting Unavailable [place], DR YARY Bur[employer] Unavailable Russ Dewey [...] VALONE JR, TUSHAR L Primary Care Unavailable TIMMIS, TRUNG H Referring Unavailable DWAIN MILLS Attending Unavailable DWAIN MILLS R Attending Unavailable TIMMIS, TRUNG H Attending Unavailable VALONE, TUSHAR L Referring Unavailable ANABEL BOYLE Attending Unavailable TIMMIS, TRUNG H Attending Unavailable Unavailable Unavailable Unavailable Allergies Allergy Classification Reported Allergen(s) Allergy Type Date of Onset Reaction(s) Facility (20 sources) atorvastatin; Translations: [atorvastatin] Drug Allergy 06-18-20 16 [facility] (20 sources) Cefadroxil; Translations: [cefadroxil] Drug Allergy 06-18-20 16 [facility] (20 sources) Codeine; Translations: [Codeine] Drug Allergy 10-12-19 15 Hives, [facility] , [facility] (11 sources) Dipyridamole; Translations: [dipyridamole] Drug Allergy 05-30-20 21 Unknown Reaction [facility] (14 sources) Fenofibrate; Translations: [fenofibrate] Drug Allergy 06-18-20 16 [facility] (20 sources) fluvoxaMINE; Translations: [fluvoxamine] Drug Allergy 06-18-20 16 [facility] (20 sources) nefazodone; Translations: [nefazodone] Drug Allergy 06-18-20 16 [facility] (20 sources) Niacin; Translations: [niacin] Drug Allergy 06-18-20 16 [facility] (14 sources) Simvastatin; Translations: [simvastatin] Drug Allergy 05-30-20 21 [facility] (1 source) Aspirin / Dipyridamole Drug Allergy 07-14-19 13 [facility] (1 source) Cefadroxil Drug Allergy 10-12-19 15 [facility] (1 source) Dextroamphetamine Drug Allergy 10-12-19 15 [facility] (1 source) Fenofibrate Drug Allergy 10-12-19 15 [facility] (1 source) fluvoxaMINE Drug Allergy 10-12-19 15 [facility] (1 source) nefazodone Drug Allergy 10-12-19 15 [facility] (1 source) Niacin Drug Allergy 10-12-19 15 [facility] (1 source) Simvastatin Drug Allergy 10-12-19 15 [facility] (11 sources) Aspirin / Dipyridamole Drug Allergy 04-08-20 23 Other [facility] Work Phone: (11 sources) Fluconazole Allergy to substance 04-08-20 23 Rash [facility] (3 sources) Aspirin / Dipyridamole; Translations: [ASPIRIN-DIPYRIDAMOL E] Drug Allergy 06-18-20 16 [facility] Work Phone: (10 sources) Fenofibrate; Translations: [FENOFIBRATE MICRONIZED] Drug Allergy 06-18-20 16 [facility] (16 sources) Metoprolol; Translations: [METOPROLOL] Drug Allergy 09-09-19 24 Other (See Comments) [facility] Medications Current Medications Medication Drug Class(es) Dates Sig (Normalized) Sig (Original) acarbose 100 mg oral tablet (2 sources) alpha-Glucosidase Inhibitor Acarbose 100 MG as directed Orally Active ascorbic acid 1000 mg oral tablet (20 sources) Vitamin C take 1 tablet by mouth in the morning Ascorbic Acid (vitamin C) 1000 MG tablet Take 1,000 mg by mouth in the morning. Active Vitamin C Active aspirin 81 mg chewable tablet (20 sources) Platelet Aggregation Inhibitor, Nonsteroidal Anti-inflammatory Drug Start: 02-16-2023 End: 10-15-2023 aspirin 81 mg chewable tablet Chew 1 tablet (81 mg total) and swallow in the morning. 30 tablet 11 02/16/2023 Active take 1 tablet by mouth in the mo rning aspirin 81 MG EC tablet Take 81 mg by mouth in the morning. Active BABY ASPIRIN PO Take by mouth. 0 Active azelastine hydrochloride 0.5 mg/ml ophthalmic solution (8 sources) Histamine-1 Receptor Antagonist take 1 drop(s) into the eye(s) in the morning azelastine (OPTIVAR) 0.05 % ophthalmic solution 1 drop in the morning and 1 drop before bedtime. Active Calcium (1 source) Phosphate Binder, Calcium Calcium Active calcium citrate 1040 mg oral tablet (20 sources) Start: take 250 mg by mouth once daily Calcium Citrate Active 250 MG PO Daily August 06, 2023 12:00am Start: 11-25-2022 take 2 tablets by mo uth once daily calcium citrate 250 mg calcium tablet TAKE 2 TABLETS BY MOUTH EVERY DAY AT NOON 11/25/2022 Active calcium citrate (Calcitrate) 950 (200 Ca) MG tablet Take 250 mg by mouth in the morning. Active Calcium Citrate 250 MG tablet Take by mouth. 0 Active cephalexin 500 mg oral capsule (2 sources) Cephalosporin Antibacterial Start: 05-20-2022 take 1 capsule by mouth every eight hours Cephalexin 500 MG 1 capsule Orally three times a day for 10 day(s) May, Active cholecalciferol 0.125 mg disintegrating oral tablet (20 sources) Vitamin D Start: 08-06-2021 cholecalciferol, vitamin D3, 125 mcg (5,000 unit) tablet,disintegr ating 125 mcg daily. 08/06/2021 Active Start: 08-10-2019 take 1 tablet by shaun th once daily Cholecalciferol (Vitamin D3) (Vitamin D3) 2,000 unit Tablet Active 2000 UNIT PO Daily August 10, 2019 12:00am cholecalciferol (Vitamin D-3) 25 MCG tablet Take 12.5 mcg by mouth in the morning and 12.5 mcg in the evening and 12.5 mcg before bedtime. Active take 1 tablet by shaun th once daily cholecalciferol 25 MCG (1000 UNIT) tablet Take 1 tablet by mouth daily. 0 Active clopidogrel 75 mg oral tablet (20 sources) P2Y12 Platelet Inhibitor Start: 08-10-2019 End: 10-15-2023 take 1 tablet by mouth in the morning clopidogreL (PLAVIX) 75 mg tablet Take 1 tablet (75 mg total) by mouth in the morning. 30 tablet 11 02/16/2023 Active Clopidogrel Bisu lfate Active collagenase 0.25 unt/mg topical ointment (9 sources) Collagen-specific Enzyme Start: 10-16-2023 colla genase (SANTYL) ointment Apply 1 Application topically in the morning. 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 60 tablet 2 10/16/2023 Active dextran 70 1 mg/ml / glycerin 2 mg/ml / hypromellose 3 mg/ml ophthalmic solution (11 sources) Plasma Volume Requirements Analyst, Non-Standardized Chemical Allergen Artificial Tear Solution (Soothe XP) solution Administer 1 application into affected eye(s) in the morning and 1 application at noon and 1 application in the evening and 1 application before bedtime. Active doxycycline monohydrate 100 mg oral capsule (7 sources) Tetracycline-class Drug Start: 08-19-2023 End: 07-20-2024 take 1 capsule by mouth in the morning doxycycline (Monodox) 100 MG capsule Take 100 mg by mouth in the morning and 100 mg before bedtime. 08/19/2023 07/20/2024 Discontinued (Therapy completed) DULoxetine 60 mg delayed release oral capsule (20 sources) Serotonin and Norepinephrine Reuptake Inhibitor Start: 08-10-2019 take 30 mg by mouth once daily at bedtime Duloxetine Active 30 MG PO Daily at bedtime August 10, 2019 12:00am Start: 08-10-2019 take 60 mg by mouth once daily at bedtime Duloxetine Active 60 MG Oral Daily at bedtime August 10, 2019 1:38pm take 1 capsule by [facility] at bedtime DULoxetine (Cymbalta) [address] capsule Take 30 mg by mouth at bedtime. Do not crush or chew. Active DULoxetine HCl A ctive ergocalciferol 1.25 mg oral capsule (2 sources) Provitamin D2 Compound take 1 capsule by mouth every week Ergocalciferol 1.25 MG (23946 UT) capsule Take 1 capsule by mouth once a week. 0 Active famotidine 20 mg oral tablet (20 sources) Histamine-2 Receptor Antagonist Start: 08-10-19 20 take 40 mg by mouth twice daily Famotidine Active 40 MG PO Twice daily August 10, 2019 12:00am Start: 08-10-2019 take 20 mg by mouth twice nina y Famotidine Active 20 MG Oral Twice daily August 10, 2019 1:38pm take 1 tablet by shaun th in the morning famotidine (Pepcid) 40 MG tablet Take 40 mg by mouth in the morning. Active take 2 tablets by mo uth in the evening famotidine (PEPCID) 20 mg tablet Take 2 tablets (40 mg total) by mouth in the evening. Active Famotidine Activ e take 1 tablet by shaun th every twenty-four hours Famotidine 20 MG 1 tablet at bedtime as needed Orally Once a day Active ferrous sulfate 325 mg delayed release oral tablet (20 sources) take 1 tablet by shaun th at mealtime ferrous sulfate 325 (65 Fe) MG EC tablet Take 325 mg by mouth in the morning. Take with meals. Do not crush, chew, or split. . Active take 1 tablet by shaun th once daily at breakfast ferrous sulfate 325 (65 FE) mg tablet Ta ke 1 tablet (325 mg total) by mouth daily with breakfast. Active take 1 tablet by shaun th three times daily at mealtime ferrous sulfate 325 (65 Fe) MG tablet Ta ke 1 tablet by mouth 3 times daily with meals. 0 Active fexofenadine (5 sources) Histamine-1 Receptor Antagonist Katharina Active fludrocortisone acetate 0.1 mg oral tablet (8 sources) Start: 08-10-19 20 take 0.1 mg by mouth once daily at lunch Fludrocortisone Active 0.1 MG PO Daily with lunch August 10, 2019 12:00am GENERIC COMPOUNDING MEDICATION (8 sources) End: 07-20-19 25 GENERIC COMPOUNDING MEDICATION Apply topically 3 (three) times a day NIFED PHN 07/20/2024 Discontinued (Therapy completed) GENERIC COMPOUND ING MEDICATION Apply topically 3 (three) times a day NIFED PHN Active GENERIC COMPOUND ING MEDICATION Apply topically 3 (three) times a day NIFED PHN 0 Active Ibadronate (1 source) Ibandronate Sodi um Active ipratropium bromide 0.021 mg/actuat metered dose nasal spray (8 sources) Anticholinergic Start: 11-13-2022 ipratropium (ATROVENT) 21 mcg (0.03 %) nasal spray as needed. 11/13/2022 Active Iron (8 sources) Start: 08-10-2019 take 1 tablet by mouth once daily Iron Active 1 TAB Oral Daily August 10, 2019 1:38pm Start: 08-10-2019 take 1 tablet by mouth once da dominick Iron Active 1 TAB PO Daily August 10, 2019 12:00am Iron Active liothyronine sodium 0.005 mg oral tablet (20 sources) l-Triiodothyronine Start: 08-06-2023 take 10 ug by mouth once daily Liothyronine Active 10 MCG PO Daily August 06, 2023 12:00am take 2 tablets by mouth in the m orning liothyronine (Cytomel) 5 MCG tablet Take 10 mcg by mouth in the morning. Active Liothyronine Sod ium Active take 1 tablet by mouth once nina y Liothyronine 5 MCG tablet Take by mouth daily. 0 Active Loratadine (2 sources) Loratadine (ALLERGY RELIEF 24-HR PO) Take by mouth. 0 Active meloxicam 7.5 mg oral tablet (2 sources) Nonsteroidal Anti-inflammatory Drug take 1 tablet by mouth every twenty-four hours Meloxicam 7.5 MG 1 tablet Orally Once a day Active midodrine hydrochloride 10 mg oral tablet (20 sources) alpha-Adrenergic Agonist Start: take 1 tablet by mouth three times daily midodrine (PROAMATINE) 10 mg tablet Take 1 tablet (10 mg total) by mouth 3 (three) times a day. 270 tablet 3 10/21/2023 Active Start: 10-13-2023 End: 10-15-2023 take 1 tablet by mouth every eight hours as needed 5 mg, oral, Every 8 hours PRN, SBP <100, Starting on 10/13/23 at 0014, Look-alike/sound-alike medication - verify indication for use. Start: 08-10-2019 take 10 mg by mouth three times daily Midodrine Active 10 MG PO Three times daily August 10, 2019 12:00am Start: 08-10-2019 take 2.5 mg by mouth once Mido drine Active 2.5 MG Oral Once August 10, 2019 1:38pm End: 10-21-2023 take 1 tablet by mouth three times daily as needed midodrine (PROAMATINE) 5 mg tablet Take 1 tablet (5 mg total) by mouth 3 (three) times a day. prn 10/21/2023 Discontinued (Reorder) montelukast 10 mg oral tablet (20 sources) Leukotriene Receptor Antagonist Start: 11-14-2022 take 1 tablet by mouth in the morning montelukast (SINGULAIR) 10 mg tablet Take 1 tablet (10 mg total) by mouth in the morning. 0 11/14/2022 Active Montelukast Sodi um Active Multiple Vitamin (multivitamin) tablet (13 sources) take 1 tablet by shaun th in the morning Multiple Vitamin (multivitamin) tablet Take 1 tablet by mouth in the morning. Active take 1 tablet by mouth in the mo rning Multiple Vitamin (multivitamin) tablet Take 1 tablet by mouth in the morning. 0 Active take 1 tablet by mouth once nina y Multiple Vitamin (multivitamin) tablet Take 1 tablet by mouth daily. 0 Active Multiple Vitamins-Minerals (Hair Skin and Nails Formula) tablet (11 sources) take 1 tablet by mouth in the morning Multiple Vitamins-Minerals (Hair Skin and Nails Formula) tablet Take 1 tablet by mouth in the morning. Active take 1 tablet by mouth in the mo rning Multiple Vitamins-Minerals (Hair Skin and Nails Formula) tablet Take 1 tablet by mouth in the morning. 0 Active multivitamin (THERAGRAN) tablet (8 sources) take 1 tablet by shaun th in the morning multivitamin (THERAGRAN) tablet Take 1 tablet by mouth in the morning. Active take 1 tablet by mouth in [...] omeprazole 40 mg delayed release oral capsule (15 sources) Proton Pump Inhibitor Start: 4 take 40 mg by mouth once daily Omeprazole Active 40 MG PO Daily August 06, 2023 12:00am Omeprazole Activ e ondansetron 4 mg disintegrating oral tablet (20 sources) Serotonin-3 Receptor Antagonist Start: 05-27-2020 take 1 tablet by mouth every eight hours as needed Ondansetron 4 MG 1 tablet on the tongue and allow to dissolve Orally every 8 hours as needed for 3 days May, Active take 1 tablet by shaun every eight hours as needed for nausea and vomiting ondansetron (ZOFRAN) 4 mg tablet Take 1 tablet (4 mg total) by mouth every 8 (eight) hours as needed for nausea or vomiting. Active Zofran Active pantoprazole 40 mg delayed release oral tablet (16 sources) Proton Pump Inhibitor take 1 tablet by mouth in the morning pantoprazole (ProtoNix) 40 MG EC tablet Take 40 mg by mouth in the morning. Active pregabalin 50 mg oral capsule (20 sources) Start: 3 take 1 capsule by mouth in the morning, then take 1 capsule by mouth at bedtime pregabalin (LYRICA) 50 mg capsule Take 1 capsule (50 mg total) by mouth in the morning and 1 capsule (50 mg total) before bedtime. 0 12/07/2022 Active Pregabalin Activ e take [address] [facility] three times daily Pregabalin 50 MG capsule Take 1 capsule by mouth 3 times daily. 0 Active rimegepant 75 mg disintegrating oral tablet (20 sources) Start: 08-06-2023 take 1 tablet by mouth every other day Rimegepant (Nurtec Odt) 75 mg tablet,disintegrating Active 75 MG PO Q2D August 06, 2023 12:00am take 1 tablet by mouth once Rime gepant Sulfate (Nurtec) 75 MG tablet dispersible Take 75 mg by mouth 1 (one) time if needed (take as directed). Active spironolactone 25 mg oral tablet (16 sources) Aldosterone Antagonist Start: 10-23-2023 End: 08-24-2024 spironolactone (Aldactone) 25 MG tablet Take 12.5 mg by mouth in the morning. 10/23/2023 08/24/2024 Discontinued (Side effects) Start: 10-23-2023 take 0.5 tablet by m outh in the morning spironolactone (ALDACTONE) 25 mg tablet Take 0.5 tablets (12.5 mg total) by mouth in the morning. 60 tablet 2 10/23/2023 Active Start: 10-13-2023 End: 10-23-2023 take 1 tablet by mouth in the morning spironolactone (ALDACTONE) 25 mg tablet Take 1 tablet (25 mg total) by mouth in the morning. 60 tablet 2 10/16/2023 10/23/2023 Discontinued sucralfate 1000 mg oral tablet (20 sources) Aluminum Complex Start: 08-06-2021 take 1 [...] tid Active torsemide 20 mg oral tablet (20 sources) Loop Diuretic Start: 10-23-2023 take 0.5 tablet by mouth once daily as needed torsemide (DEMADEX) 20 mg tablet Take 0.5 tablets (10 mg total) by mouth daily. prn 45 tablet 3 10/23/2023 Active Start: 08-06-2023 End: 10-23-2023 take 20 mg by mouth once daily Torsemide Active 20 MG PO Daily August 06, 2023 12:00am Demadex Active Torsemide (DEMAD EX PO) Take by mouth. 0 Active traZODone hydrochloride 150 mg oral tablet (20 sources) Serotonin Reuptake Inhibitor Start: 08-10-2019 take 150 mg by mouth once daily at bedtime Trazodone Active 150 MG PO Daily at bedtime August 10, 2019 12:00am take 1 tablet by mouth at bedtim e traZODone 50 MG tablet Take 1 tablet by mouth At bedtime. 0 Active vitamin b12 1 mg oral tablet (20 sources) Vitamin B12 take 1 tablet by mouth in the morning cyanocobalamin (Vitamin B-12) 1000 MCG tablet Take 1,000 mcg by mouth in the morning. Active Vitamin B12 Acti ve Cyanocobalamin ( Vitamin B 12) 100 MCG Lozenge Take by mouth. 0 Active Vitamin D3 (3 sources) Vitamin D3 Activ e zoledronic acid (8 sources) Bisphosphonate Zoledronic Acid (RECLAST IV) Infuse into a venous catheter yearly Active Completed/Discontinued Medications Medication Drug Class(es) Dates Sig (Normalized) Sig (Original) acetaminophen 325 mg oral tablet (15 sources) Start: 10-13-2023 End: 10-15-2023 take 1 tablet by mouth every four hours as needed for pain and headache acetaminophen (TYLENOL) tablet 650 mg take 1 tablet by shaun th every eight hours as needed acetaminophen (Tylenol) 500 MG tablet Ta ke 500 mg by mouth every 8 (eight) hours if needed. Active take 1 tablet by shaun th every six hours as needed acetaminophen 500 MG tablet Take 1 table t by mouth every 6 hours as needed for Mild Pain. 0 Active Amylases / Endopeptidases / Lipase (3 sources) Zenpep Not-Takin g/PRN Zenpep Active bisoprolol fumarate 5 mg oral tablet (7 sources) beta-Adrenergic [place]iena Start: 10-16-2023 End: 10-23-2023 take 1 tablet by mouth in the morning bisoprolol (ZEBETA) 5 mg tablet Take 1 tablet (5 mg total) by mouth in the morning. 90 tablet 2 10/16/2023 10/23/2023 Discontinued Start: 10-14-2023 End: 10-15-2023 bisoprolol (ZEBETA) tablet 5 mg calcium carbonate 1500 mg oral tablet (11 sources) Start: 08-10-2019 End: 08-06-2023 take 1 tablet by mouth once daily Calcium Carbonate (Calcium 600) 600 mg calcium (1,500 mg) Tablet Discontinued 600 MG PO Daily August 10, 2019 12:00am August 06, 2023 11:28am take 500 mg by mouth once daily calcium carbonate (CALCIUM 500 ORAL) Take 500 mg by mouth daily. Active Calcium Gluconate (1 source) Start: 10-12-2023 End: 10-15-2023 calcium gluconate IVPB 1000 mg/50 mL (20 mg/mL premix) 4 ml furosemide 10 mg/ml injection (2 [...] Anti-coagulant Start: 10-13-2023 End: 10-14-2023 heparin infusion 28173 units/500 mL in 0.45% NaCl (50 units/mL premix) ibandronic acid 150 mg oral tablet (13 sources) Bisphosphonate End: 10-23-2023 take 1 tablet by mouth every 30 days in the morning ibandronate (BONIVA) 150 mg tablet Take 1 tablet (150 mg total) by mouth every 30 (thirty) days. Take in AM with glass of water prior to food, don't lie down for 60 minutes. 10/23/2023 Discontinued (Therapy completed) lansoprazole 30 mg delayed release oral capsule [...] by mouth 2 times daily. 0 Active naproxen 500 mg oral tablet (3 sources) Nonsteroidal Anti-inflammatory Drug Start: 08-10-2019 End: 08-06-2023 take 500 mg by mouth twice daily Naproxen Discontinued 500 MG PO Twice daily August 10, 2019 12:00am August 06, 2023 11:31am nitroglycerin 0.4 mg sublingual tablet (20 sources) Nitrate Vasodilator Start: 02-16-2023 End: 10-15-2023 [...] ranolazine 500 mg extended release oral tablet (20 sources) Anti-angina l Start: 10-13-2023 End: 10-15-2023 [...] graft with unstable angina pectoris, unspecified whether [place] or transplanted heart ([facility]) Take 1 tablet (1,000 mg total) by mouth in the morning and 1 tablet (1,000 mg total) before bedtime. 180 tablet 3 03/05/2023 Active take 1 tablet by shaun th every twelve hours in the morning ranolazine (Ranexa) 500 MG 12 hr tablet Take 500 mg by mouth in the morning and 500 mg before bedtime. Do not crush, chew, or split. . Active Ranolazine ER Ac tive take 1 tablet by shaun th twice daily Ranolazine 500 MG Tab SR 12 HR tablet Take 1 tablet by mouth 2 times daily. 0 Active rosuvastatin calcium 20 mg oral tablet (20 sources) HMG-CoA Reductase Inhibitor Start: 08-10-2019 End: 07-20-2024 take 20 mg by mouth once daily 20 mg, oral, Daily, First dose on Fri10/13/23 at 0900, Look-alike/sound-alike medication - verify indication for use. Rosuvastatin Sloan cium 20 MG Cap Sprinkle Take by mouth. 0 Active Rosuvastatin Sloan cium Active sacubitril 24 mg / valsartan 26 mg oral tablet (8 sources) Angiotensin 2 Receptor [place]iena Start: 10-16-2023 End: 10-23-2023 take 1 tablet by mouth in the morning sacubitriL-valsartan (ENTRESTO) 24-26 mg tablet Take 1 tablet by mouth in the morning and 1 tablet before bedtime. 60 tablet 2 10/16/2023 10/23/2023 Discontinued (Reorder) Start: 10-16-2023 End: 10-15-2023 sacubitriL-valsartan (ENTRES TO) 24-26 mg per tablet 1 tablet 125 ml sodium chloride 9 mg/ ml [...] Date Documented Date Episodic/Chronic Acute cerebrovascular disease (10 sources) Cerebrovascular accident; Translations: [Cerebral infarction, unspecified] Onset: 08-21-2023 08-21-2023 Chronic Acute myocardial infarction (16 sources) Myocardial infarction; Translations: [Non-ST elevation (NSTEMI) myocardial infarction] Onset: 10-12-2023 10-15-2023 Chronic Cardiac and circulatory congenital anomalies (20 sources) Bicuspid aortic valve; Translations: [Congenital insufficiency of aortic valve] Onset: 10-10-2021 10-10-2021 Chronic Chronic kidney disease (10 sources) Chronic kidney disease; Translations: [Chronic kidney disease, unspecified] Onset: 08-21-2023 08-21-2023 Chronic Chronic ulcer of skin (1 source) Ischemic ulcer of toe; Translations: [Non-pressure chronic ulcer of other part of right foot with necrosis of muscle] 08-21-2023 Chronic Complication of device; implant or graft (15 sources) Arteriosclerosis of coronary artery bypass graft; Translations: [Atherosclerosis of coronary artery bypass graft(s) without angina pectoris] Onset: 02-16-2024 03-05-2023 Chronic Conditions associated with dizziness or vertigo (1 source) Dizziness Onset: 10-23-2023 Episodic Conduction disorders (10 sources) Cardiac pacemaker in situ; Translations: [Presence of cardiac pacemaker] Onset: 08-21-2023 08-21-2023 Chronic Congestive heart failure; nonhypertensive (20 sources) Unspecified systolic (congestive) heart failure; Translations: [Unspecified combined systolic (congestive) and diastolic (congestive) heart failure] Onset: 07-21-2022 10-15-2023 Chronic Congestive heart failure; nonhypertensive (1 source) Congestive heart failure; nonhypertensive Onset: 10-13-2023 Coronary atherosclerosis and other heart disease (20 sources) Coronary arteriosclerosis; Translations: [Atherosclerotic heart disease of [place] coronary artery without angina pectoris] Onset: 10-19-2020 03-05-2023 Chronic Coronary atherosclerosis and other heart disease (1 source) Coronary atherosclerosis and other heart disease; Translations: [Atherosclerosis of [place] arteries of right leg with ulceration of other part of foot] Onset: 08-06-2023 Deficiency and other anemia (4 sources) Iron deficiency anemia, unspecified; Translations: [IRON DEFICIENCY ANEMIA UNSPECIFIED] Onset: 10-15-2022 Episodic Diabetes mellitus without complication (12 sources) Type 2 diabetes mellitus without complications; Translations: [Type 2 diabetes mellitus without complication] Onset: 11-24-2020 Chronic Disorders of lipid metabolism (20 sources) Hyperlipidemia, unspecified; Translations: [Pure hypercholesterolemia, unspecified] Onset: 10-19-2020 03-05-2023 Chronic E Codes: Fall (4 sources) Fall; Translations: [Unspecified fall, initial encounter] Onset: 08-24-2024 08-24-2024 Episodic Esophageal disorders (3 sources) Ulcerative esophagitis; Translations: [Ulcer of esophagus without bleeding] Chronic Essential hypertension (17 sources) Essential hypertension; Translations: [Essential (primary) hypertension] Onset: 10-19-2020 08-21-2023 Chronic Fracture of neck of femur (hip) (2 sources) Closed fracture of hip; Translations: [Fracture of unspecified part of neck of right femur, initial encounter for closed fracture] Onset: 08-24-2024 08-24-2024 Episodic Gangrene (4 sources) Gangrenous disorder; Translations: [Gangrene, not elsewhere classified] Episodic Gastroduodenal ulcer (except hemorrhage) (3 sources) Gastric erosion; Translations: [Gastric ulcer, unspecified as acute or chronic, without hemorrhage or perforation] Chronic Heart valve disorders (15 sources) Aortic incompetence, non-rheumatic ; Translations: [Nonrheumatic aortic (valve) insufficiency] Onset: 01-01-2023 01-01-2023 Chronic Nutritional deficiencies (1 source) Vitamin D deficiency, unspecified; Translations: [VITAMIN D DEFICIENCY UNSPECIFIED] Onset: 07-21-2022 Chronic Occlusion or stenosis of precerebral arteries (17 sources) Left carotid artery stenosis; Translations: [Occlusion and stenosis of left carotid artery] Onset: 01-01-2023 10-06-2023 Chronic Open wounds of extremities (2 sources) Laceration without foreign body of right forearm, initial encounter Episodic Other aftercare (1 source) Other [place] [facility] (current[facility] drug therapy; Translations: [OTH JAIL CURRENT DRUG THERAPY] Onset: 07-21-2022 Episodic Other circulatory disease (15 sources) History of cardiovascular surgery; Translations: [Presence of other cardiac implants and grafts] Onset: 06-16-2017 07-23-2017 Chronic Other connective tissue disease (2 sources) Pain in right hand Episodic Other connective tissue disease (1 source) Pain of toe of right foot; Translations: [Pain in right toe(s)] 08-21-2023 Episodic Other diseases of veins and lymphatics (8 sources) Venous hypertension of lower limb; Translations: [Chronic venous hypertension (idiopathic) without complications of unspecified lower extremity] Onset: 02-16-2024 02-16-2024 Chronic Other ear and sense organ disorders (8 sources) Bilateral hearing loss; Translations: [Conductive hearing loss, unilateral, right ear with restricted hearing on the contralateral side] Onset: 02-17-2024 02-17-2024 Chronic Other ear and sense organ disorders (1 source) Sensorineural hearing loss, bilateral; Translations: [Sensorineural hearing loss, bilateral] 06-30-2024 Chronic Other ear and sense organ disorders (4 sources) Asymmetrical sensorineural hearing loss; Translations: [Sensorineural hearing loss, bilateral] 07-20-2024 Chronic Other ear and sense organ disorders (1 source) Bilateral tinnitus; Translations: [Tinnitus, bilateral] 06-30-2024 Episodic Other fractures (2 sources) Closed fracture pubis; Translations: [Unspecified fracture of left pubis, initial encounter for closed fracture] Onset: 08-24-2024 08-24-2024 Episodic Other fractures (2 sources) Fracture of inferior pubic ramus; Translations: [Other specified fracture of left pubis, initial encounter for closed fracture] Onset: 08-24-2024 08-24-2024 Episodic Other injuries and conditions due to external causes (2 sources) Injury of right shoulder; Translations: [Unspecified injury of right shoulder and upper arm, initial encounter] Onset: 08-24-2024 08-24-2024 Episodic Other non-traumatic joint disorders (3 sources) Pain in left knee; Translations: [Pain in joint, lower leg] Onset: 06-25-2023 06-18-2023 Episodic Other non-traumatic joint disorders (2 sources) Hip pain; Translations: [Pain in left hip] Onset: 08-24-2024 08-24-2024 Episodic Zeenat-; endo-; and myocarditis; cardiomyopathy (except that caused by tuberculosis or sexually transmitted disease) (15 sources) Cardiomyopathy; Translations: [Cardiomyopathy, unspecified] Onset: 01-27-2023 03-05-2023 Chronic Peripheral and visceral atherosclerosis (4 sources) Peripheral vascular disease, unspecified; 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 Residual codes; unclassified (1 source) Other specified health status Episodic Residual codes; unclassified (1 source) Pain, unspecified; Translations: [Pain, unspecified] Onset: 10-13-2023 Episodic Superficial injury; contusion (7 sources) Contusion of rib; Translations: [Contusion of left front wall of thorax, initial encounter] Episodic Thyroid disorders (9 sources) Hypothyroidism, unspecified; Translations: [Acquired hypothyroidism] Onset: 10-19-2022 02-16-2024 Chronic Tuberculosis (1 source) Personal history of tuberculosis; Translations: [PERSONAL HISTORY OF TUBERCULOSIS] Onset: 07-21-2022 Episodic Past or Other Problems Problem Classification Problem Date Documented Da te Episodic/Chronic Abdominal pain (1 source) Epigastric pain; Translations: [Epigastric pain R10.13] Onset: 04-12-2021 Resolved: 04-12-2021 Episodic Bacterial infection; unspecified site (8 sources) Clostridioides difficile infection; Translations: [Other bacterial infections of unspecified site] Onset: 02-16-2024 02-16-2024 Episodic Coronary atherosclerosis and other heart disease (1 source) Presence of aortocoronary bypass graft; Translations: [Presence of aortocoronary bypass graft] Onset: 03-05-2023 Episodic Fracture of lower limb (8 sources) Fracture of distal end of femur; Translations: [Unspecified fracture of lower end of unspecified femur, initial encounter for closed fracture] Onset: 12-02-2018 02-16-2024 Episodic Malaise and fatigue (8 sources) Fatigue; Translations: [Other fatigue] Onset: 11-24-2020 02-16-2024 Episodic Mood disorders (5 sources) Mood disorders Onset: 10-13-2023 10-13-2023 Nausea and vomiting (16 sources) Nausea and vomiting; Translations: [Nausea with vomiting, unspecified] Onset: 04-12-2021 Resolved: 04-12-2021 Episodic Nonspecific chest pain (7 sources) Chest discomfort; Translations: [Other chest pain] Onset: 01-27-2023 Resolved: 03-05-2023 03-05-2023 Episodic Other bone disease and musculoskeletal deformities (8 sources) Pain in femur; Translations: [Other specified disorders of bone, thigh] Onset: 12-02-2018 02-16-2024 Episodic Other circulatory disease (15 sources) Low blood pressure; Translations: [Hypotension, unspecified] Onset: 01-27-2023 01-27-2023 Episodic Other ear and sense organ disorders (8 sources) Impacted cerumen of bilateral ears; Translations: [Impacted cerumen, bilateral] Onset: 02-17-2024 02-17-2024 Episodic Other lower respiratory disease (16 sources) Dyspnea; Translations: [Shortness of breath] Onset: 01-27-2023 01-27-2023 Episodic Other screening for suspected conditions (not mental disorders or infectious disease) (19 sources) Encounter for screening mammogram for malignant neoplasm of breast; Translations: [Cardiovascular stress test abnormal] Onset: 10-19-2020 Episodic Skin and subcutaneous tissue infections (8 sources) Paronychia of finger; Translations: [Cellulitis of unspecified finger] Onset: 06-16-2018 02-16-2024 Episodic Results Test Name Value Interpretation Reference Range Facility Reminder Messageson 08-17-19 Reminder Messages Entered by Roxane Agosto RN on August 17, 2024 11:28:53 EST reminder letter mailed to address on file From: Roxane Agosto RN (General Surgery Clerical Pool ([facility])) To: General Surgery Clerical Pool ([facility]); Sent: 08/15/2021 13:19:38 EST Show up: 08/15/2024 13:19:00 EST Subject: General Reminder Reminder: Please call patient to: Please schedule patient for: colonoscopy, hx of polyps Please ask patient to: Results Follow up Required for: Visit Summary For ASHVIN RENE We would like to thank you for allowing us to assist you with your healthcare needs. Our entire staff strives to provide an excellent experience for our patients and their families. The following includes information regarding your visit. Age: 65 years Sex: FEMALE : 1955 Address: [address] [place] [address] Home: Work: -- Primary Care Provider: TUSHAR SOLANO JR. Race: White Ethnicity: Not or Language: Turkish Health Plan: 1?MEDICARE Normal [facility] CT INTERNAL AUDITORY CANALS/ POSTERIOR FOSSA WO IV CONTRASTon 08-12-2024 CT INTERNAL AUDITORY CANALS/POSTERIOR FOSSA WO IV CONTRAST TITLE OF EXAM: CT INTERNAL AUDITORY CANALS/POSTERIOR FOSSA WO IV CONTRAST REASON FOR EXAM: Right sensorineural hearing loss, tinitus bilateral ears TECHNIQUE: Axial CT of the temporal bones COMPARISON: None. FINDINGS: RIGHT: Treatment Changes: No appreciable surgical intervention. EAC/TM: No abnormal opacification. The tympanic membrane is not thickened. Mastoids: Appropriately developed, without abnormal opacification. The tegmen mastoideum is intact. Middle Ear: No opacification of the tympanic cavity. The scutum is sharp, the tegmen tympani is intact. Ossicles are fully formed, with intact ossicular chain. Facial Nerve: The course of the facial nerve through the petrous temporal bone is normal, with no suspicion of osseous uncovering to the fallopian canal. Otic Capsule: Normal mineralization Inner Ear: No dysplasia. Semicircular canals are appropriately covered by bone. No abnormal ossification of the labyrinthine structures. IAC/Vestibular Aqueduct: No enlargement of the internal auditory canal or vestibular aqueduct. Vascular: The carotid, jugular, and sigmoid plates are intact. Petrous Gravel Switch: Normal. LEFT: Treatment Changes: No appreciable surgical intervention. EAC/TM: No abnormal opacification. The tympanic membrane is not thickened. Mastoids: Appropriately developed, without abnormal opacification. The tegmen mastoideum is intact. Middle Ear: No opacification of the tympanic cavity. The scutum is sharp, the tegmen tympani is intact. Ossicles are fully formed, with intact ossicular chain. Facial Nerve: The course of the facial nerve through the petrous temporal bone is normal, with no suspicion of osseous uncovering to the fallopian canal. Otic Capsule: Normal mineralization Inner Ear: No dysplasia. Semicircular canals are appropriately covered by bone. No abnormal ossification of the labyrinthine structures. IAC/Vestibular Aqueduct: No enlargement of the internal auditory canal or vestibular aqueduct. Vascular: The carotid, jugular, and sigmoid plates are intact. Petrous Gravel Switch: Normal. Orbits and face (included portions): Moderate bilateral temporomandibular joint osteoarthrosis. Paranasal sinuses (included portions): Left middle etienne bullosa/lamella. Clear paranasal sinuses. Brain and intracranial structures (included portions): Severe concentric calcific arteriosclerosis of the cavernous internal carotid. Skull/scalp (included portions): Normal. Foramina spinosum are present bilaterally. IMPRESSION: 1. No CT abnormality of the structures of the temporal bones to explain the patient's reported right-sided sensorineural hearing loss and tinnitus. 2. Chronic findings as detailed. DICTATED ON: 08/12/2024 3:17 PM This report has been electronically signed in approved by the interpreting radiologist. Normal Not Available Comment on above: Order Comment: CT Te mporal WO at [facility]. Please call patient to schedule. Auditory function testson Right Ear: Moderate to severe sensorineural hearing loss Left Ear: Mild to severe sensorineural hearing loss [facility] BASIC METABOLIC PANLon 10-14 Anion gap [Moles/Vol] 15 mmol/L Normal 5-15 [facility] Comment on above: Performed By: #### P INR, 37645-5, 718-7, PLTCT, BMP, 79920-7 #### [facility] ([id number]) [address], [address] [place] [address] Calcium [Mass/Vol] 8.0 mg/dL Low 8.5-10.5 [facility] Comment on above: Performed By: #### P INR, 30355-8, 718-7, PLTCT, BMP, 73109-1 #### [facility] ([id number]) [address], [address] [place] [address] Chloride [Moles/Vol] 97 mmol/L Low 98-109 [facility] Comment on above: Performed By: #### P INR, 00289-7, 718-7, PLTCT, BMP, 45060-5 #### [facility] ([id number]) [address], [address] [place] [address] CO2 [Moles/Vol] 28 mmol/L Normal 22-32 [facility] Comment on above: Performed By: #### P INR, 35670-1, 718-7, PLTCT, BMP, 83304-7 #### [facility] ([id number]) [address], [address] [place] [address] Creatinine [Mass/Vol] 0.88 mg/dL Normal 0.40-1.00 [facility] Comment on above: Result Comment: METH OD TRACEABLE TO IDMS STANDARD Performed By: #### P INR, 79744-9, 718-7, PLTCT, BMP, 96450-4 #### [facility] ([id number]) [address], [address] [place] [address] GFR/1.73 sq M.predicted among non-blacks MDRD (S/P/Bld) [Vol rate/Area] 71 mL/min/{1.73_m2} Normal >59 [facility] Comment on above: Result Comment: Reported eGFR is based on the CKD-EPI 2020 equation that does not use a race coefficient. Performed By: #### P INR, 20666-9, 718-7, PLTCT, BMP, 56062-3 #### [facility] ([id number]) [address], [address] [place] [address] Glucose [Mass/Vol] 138 mg/dL High 65-99 [facility] Comment on above: Performed By: #### P INR, 63712-7, 718-7, PLTCT, BMP, 77703-8 #### [facility] ([id number]) [address], [address] [place] [address] Potassium [Moles/Vol] 4.8 mmol/L Normal 3.5-5.0 [facility] Comment on above: Result Comment: SPEC IMEN HEMOLYZED, RESULTS INCREASED MODERATELY HEMOLYZED Performed By: #### P INR, 62932-8, 718-7, PLTCT, BMP, 35630-5 #### [facility] ([id number]) [address], [address] [place] [address] Sodium [Moles/Vol] 140 mmol/L Normal 134-146 [facility] Comment on above: Performed By: #### P INR, 33825-8, 718-7, PLTCT, BMP, 27499-7 #### [facility] ([id number]) [address], [address] [place] [address] Urea nitrogen [Mass/Vol] 20 mg/dL Normal 5-27 [facility] Comment on above: Performed By: #### P INR, 30001-9, 718-7, PLTCT, BMP, 24357-6 #### [facility] ([id number]) [address], [address] [place] [address] Basic Metabolic Panelon 04-0 Anion gap [Moles/Vol] 15 mmol/L 5 - 15 mmol/L [facility] Calcium [Mass/Vol] 8.0 mg/dL Low 8.5 - 10. 5 mg/dL [facility] Chloride [Moles/Vol] 97 mmol/L Low 98 - 109 mmol/L [facility] CO2 [Moles/Vol] 28 mmol/L 22 - 32 mmol/L [facility] Creatinine [Mass/Vol] 0.88 mg/dL 0.40 - 1.00 mg/dL [facility] Comment on above: METHOD TRACEABLE TO [facility] STANDARD eGFR (CKD-EPI)non-race dependent 71 - PINF [facility] Comment on above: Reported eGFR is based on the CKD-EPI 2020 equation that does not use a race coefficient. Glucose [Mass/Vol] 138 mg/dL High 65 - 99 mg/dL [facility] Potassium [Moles/Vol] 4.8 mmol/L 3.5 - 5.0 mmol/L [facility] Comment on above: SPECIMEN HEMOLYZED, RESULTS INCREASED MODERATELY HEMOLYZED Sodium [Moles/Vol] 140 mmol/L 134 - 146 mmol/L [facility] Urea nitrogen [Mass/Vol] 20 mg/dL 5 - 27 mg/dL [facility] CBC AND AUTO DIFFon 10-15-19 24 ABSOLUTE BASOPHIL 0.0 X10E9/L Normal 0.0-0.2 [facility] Comment on above: Performed By: #### P INR, 56429-4, 718-7, PLTCT, BMP, 24183-3 #### [facility] ([id number]) [address], [address] [place] [address] ABSOLUTE NEUTROPHIL 4.6 X10E9/L Normal 1.5-6.6 [facility] Comment on above: Performed By: #### P INR, 91207-6, 718-7, PLTCT, BMP, 35488-6 #### [facility] ([id number]) [address] [place] [address] Basophils/100 WBC (Bld) 0.4 % Normal [facility] Comment on above: Performed By: #### P INR, 68285-9, 718-7, PLTCT, BMP, 30212-6 #### [facility] ([id number]) [address], [address] [place] [address] Eosinophils (Bld) [#/Vol] 0.0 10*3/uL Normal 0.0-0.4 [facility] Comment on above: Performed By: #### P INR, 54231-4, 718-7, PLTCT, BMP, 20966-9 #### [facility] ([id number]) [address], [facility] [address] [place] [address] Eosinophils/100 WBC (Bld) 0.3 % Normal [facility] Comment on above: Performed By: #### P INR, 21457-1, 718-7, PLTCT, BMP, 15887-3 #### [facility] ([id number]) [address], [facility] [address] [place] [address] Erythrocyte distribution width (RBC) [Ratio] 12.7 % Normal 11.5-15.0 [facility] Comment on above: Performed By: #### P INR, 92639-5, 718-7, PLTCT, BMP, 60425-2 #### [facility] ([id number]) [address], [facility] [address] [place] [address] Hematocrit (Bld) [Volume fraction] 38.1 % Normal 35-47 [facility] Comment on above: Performed By: #### P INR, 76365-7, 718-7, PLTCT, BMP, 77089-5 #### [facility] ([id number]) [address] [address] [place] [address] Lymphocytes (Bld) [#/Vol] 2.2 10*3/uL Normal 1.0-3.5 [facility] Comment on above: Performed By: #### P INR, 69053-5, 718-7, PLTCT, BMP, 00945-1 #### [facility] ([id number]) [address], [address] [place] [address] Lymphocytes/100 WBC (Bld) 30.4 % Normal [facility] Comment on above: Performed By: #### P INR, 37263-9, 718-7, PLTCT, BMP, 44868-3 #### [facility] ([id number]) [address], [facility] [address] [place] [address] MCH (RBC) [Entitic mass] 34.3 pg High 27-34 [facility] Comment on above: Performed By: #### P INR, 94829-6, 718-7, PLTCT, BMP, 26950-8 #### [facility] ([id number]) [address] [address] [place] [address] MCHC (RBC) [Mass/Vol] 33.3 g/dL Normal 32-36 [facility] Comment on above: Performed By: #### P INR, 95119-6, 8-7, PLTCT, BMP, 82114-8 #### [facility] ([id number]) [address] [address] [place] [address] MCV (RBC) [Entitic vol] 103 fL High 80-100 [facility] Comment on above: Performed By: #### P INR, 08292-5, 8-7, PLTCT, BMP, 14760-0 #### [facility] ([id number]) [address] [address] [place] [address] Monocytes (Bld) [#/Vol] 0.4 10*3/uL Normal 0-0.9 [facility] Comment on above: Performed By: #### P INR, 03342-6, 718-7, PLTCT, BMP, 25478-0 #### [facility] ([id number]) [address] [address] [place] [address] Monocytes/100 WBC (Bld) 6.0 % Normal [facility] Comment on above: Performed By: #### P INR, 25291-2, 718-7, PLTCT, BMP, 63215-4 #### [facility] ([id number]) [address] [place] [address] Neutrophils/100 WBC (Bld) 62.9 % Normal [facility] Comment on above: Performed By: #### P INR, 11208-9, 718-7, PLTCT, BMP, 28344-2 #### [facility] ([id number]) [address], [facility] [address] [place] [address] Platelet mean volume (Bld) [Entitic vol] 8.7 fL Normal 7-12 [facility] Comment on above: Performed By: #### P INR, 49912-5, 718-7, PLTCT, BMP, 51128-7 #### [facility] ([id number]) [address], [address] [address] Platelets (Bld) [#/Vol] 229 10*3/uL Normal 150-450 [facility] Comment on above: Performed By: #### P INR, 39689-4, 718-7, PLTCT, BMP, 52792-4 #### [facility] ([id number]) [address], [facility] [address] [place] [address] RBC COUNT 3.69 X10E12/L Low 3.80-5.20 [facility] Comment on above: Performed By: #### P INR, 82008-6, 718-7, PLTCT, BMP, 51327-5 #### [facility] ([id number]) [address], [facility] [address] [place] [address] WBC (Bld) [#/Vol] 7.3 10*3/uL Normal 4.0-11.0 [facility] Comment on above: Performed By: #### P INR, 95646-1, 718-7, PLTCT, BMP, 33906-9 #### [facility] ([id number]) [address] [facility] [place] [address] CBC auto differentialon Basophils (Bld) [#/Vol] 0.0 10*3/uL [facility] Basophils/100 WBC (Bld) 0.4 % [facility] Eosinophils (Bld) [#/Vol] 0.0 10*3/uL [facility] Eosinophils/100 WBC (Bld) 0.3 % [facility] Erythrocyte distribution width (RBC) [Ratio] 12.7 % 11.5 - 15.0 % [facility] Hematocrit (Bld) [Volume fraction] 38.1 % 35 - 47 % [facility] Hemoglobin (Bld) [Mass/Vol] 12.7 g/dL 11.7 - 15.5 g/dL [facility] Interpretation and review of laboratory results Abnormal [facility] Lymphocytes (Bld) [#/Vol] 2.2 10*3/uL [facility] Lymphocytes/100 WBC (Bld) 30.4 % [facility] MCH (RBC) [Entitic mass] 34.3 pg High 27 - 34 pg [facility] MCHC (RBC) [Mass/Vol] 33.3 g/dL 32 - 36 g/dL [facility] MCV (RBC) [Entitic vol] 103 fL High 80 - 100 fL [facility] Monocytes (Bld) [#/Vol] 0.4 10*3/uL [facility] Monocytes/100 WBC (Bld) 6.0 % [facility] Neutrophils (Bld) [#/Vol] 4.6 10*3/uL [facility] Neutrophils/100 WBC (Bld) 62.9 % [facility] Platelet mean volume (Bld) [Entitic vol] 8.7 fL 7 - 12 fL [facility] Platelets (Bld) [#/Vol] 229 10*3/uL [facility] RBC (Bld) [#/Vol] 3.69 10*6/uL Low [facility] WBC corrected for nucl RBC Auto (Bld) [#/Vol] 7.3 [facility] CREATININEon 10-15-2023 Creatinine [Mass/Vol] 0.81 mg/dL Normal 0.40-1.00 [facility] Comment on above: Result Comment: METH OD TRACEABLE TO IDMS STANDARD Performed By: #### P INR, 23547-2, 718-7, PLTCT, BMP, 20086-3 #### [facility] ([id number]) [address] [facility] [facility] [place] [address] GFR/1.73 sq M.predicted among non-blacks MDRD (S/P/Bld) [Vol rate/Area] 79 mL/min/{1.73_m2} Normal >59 [facility] Comment on above: Result Comment: Reported eGFR is based on the CKD-EPI 2020 equation that does not use a race coefficient. Performed By: #### P INR, 05881-5, 718-7, PLTCT, BMP, 74877-3 #### [facility] ([id number]) [address] [facility] [place] [address] Creatinine includes GFR, ser umon 10-15-2023 Creatinine [Mass/Vol] 0.81 mg/dL 0.40 - 1.00 mg/dL [facility] Comment on above: METHOD TRACEABLE TO IDMS STANDARD eGFR (CKD-EPI)non-race dependent 79 - PINF [facility] Comment on above: Reported eGFR is based on the CKD-EPI 2020 equation that does not use a race coefficient. HEMOGLOBINon 10-15-2023 Hemoglobin (Bld) [Mass/Vol] 12.7 g/dL Normal 11.7-15.5 [facility] Comment on above: Performed By: #### P INR, 80321-2, 718-7, PLTCT, BMP, 95960-3 #### [facility] ([id number]) [address], [address] [place] [address] Hemoglobinon 10-15-2023 Hemoglobin (Bld) [Mass/Vol] 12.7 g/dL 11.7 - 15.5 g/dL [facility] Ionized magnesiumon 10-15-19 Magnesium Ionized ISE (Bld) [Moles/Vol] 0.53 mmol/L 0.45 - 0.74 mmol/L [facility] Comment on above: NEW REFERENCE RANGE MAGNESIUMon 10-15-2023 Magnesium [Mass/Vol] 1.8 mg/dL Normal 1.8-2.6 [facility] Comment on above: Result Comment: SPEC IMEN HEMOLYZED, RESULTS INCREASED MARKEDLY HEMOLYZED Performed By: #### P INR, 53033-1, 718-7, PLTCT, BMP, 23811-2 #### [facility] ([id number]) [address], [address] [place] [address] Magnesiumon 10-15-2023 Magnesium [Mass/Vol] 1.8 mg/dL 1.8 - 2.6 mg/dL [facility] Comment on above: SPECIMEN HEMOLYZED, RESULTS INCREASED MARKEDLY HEMOLYZED Magnesium Ionized ISE (Bld) [Moles/Vol]on 10-15-2023 Magnesium [Moles/Vol] 0.53 mmol/L Normal 0.45-0.74 [facility] Comment on above: Result Comment: NEW REFERENCE RANGE Performed By: #### P INR, 41528-4, 718-7, PLTCT, BMP, 29867-5 #### [facility] ([id number]) [address], [address] [place] [address] [facility] No Panel Informationon 10-14 Interpretation and review of laboratory results Abnormal [facility] PHOSPHORUSon 10-15-2023 Phosphate [Mass/Vol] 5.7 mg/dL High 2.4-4.9 [facility] Comment on above: Result Comment: SPEC IMEN HEMOLYZED, RESULTS INCREASED MODERATELY HEMOLYZED Performed By: #### P INR, 92478-3, 718-7, PLTCT, BMP, 83194-4 #### [facility] ([id number]) [address], [address] [place] [address] PLATELET COUNT AND MPVon Platelet mean volume (Bld) [Entitic vol] 8.3 fL Normal 7-12 [facility] Comment on above: Performed By: #### P INR, 82387-1, 718-7, PLTCT, BMP, 71407-5 #### [facility] ([id number]) [address], [address] [place] [address] Platelets (Bld) [#/Vol] 219 10*3/uL Normal 150-450 [facility] Comment on above: Performed By: #### P INR, 80726-9, 718-7, PLTCT, BMP, 97915-3 #### [facility] ([id number]) [address], [address] [place] [address] Phosphoruson 10-15-2023 Phosphate [Mass/Vol] 5.7 mg/dL High 2.4 - 4.9 mg/dL [facility] Comment on above: SPECIMEN HEMOLYZED, RESULTS INCREASED MODERATELY HEMOLYZED Platelet counton 10-15-2023 Platelet mean volume (Bld) [Entitic vol] 8.3 fL 7 - 12 fL [facility] Platelets (Bld) [#/Vol] 219 10*3/uL [facility] XR Chest Single viewon 10-14 Kay Dunn DO - 10/15/2023 Procedure: Chest x-ray performed Number of views:AP view History:Hypoxia Comparison:10/12/2023 Findings: The heart and mediastinal silhouette are stable. There is pulmonary vascular congestion. There are no focal consolidations. There is a small left pleural effusion. There is no pneumothorax Impression: Pulmonary vascular congestion. Finalized by Kay Dunn DO on 10/15/2023 10:48 AM [facility] Radiology Study observation (narrative) [facility] XR Chest Single viewOrdered By: Kay Dunn on 10-15-2023 [facility] Work Phone: Anti XA unfractionated hepar inon 10-14-2023 Heparin unfractionated Chromogenic method Qn (PPP) Low [facility] Comment on above: Optimal time for marky ting is 6 hrs post dosage This test is specific for monitoring patients on UFH, and is not recommended for use with other Anti-Xa medications. Heparin unfractionated Chromogenic method Qn (PPP) 0.68 [facility] Comment on above: Optimal time for marky ting is 6 hrs post dosage This test is specific for monitoring patients on UFH, and is not recommended for use with other Anti-Xa medications. BASIC METABOLIC PANLon 10-13 Anion gap [Moles/Vol] 11 mmol/L Normal 5-15 [facility] Comment on above: Performed By: #### P INR, 57277-1, 718-7, PLTCT, BMP, 36750-9 #### [facility] ([id number]) [address], [address] [place] [address] Calcium [Mass/Vol] 7.4 mg/dL Low 8.5-10.5 [facility] Comment on above: Performed By: #### P INR, 21027-0, 718-7, PLTCT, BMP, 04958-5 #### [facility] ([id number]) [address], [address] [place] [address] Chloride [Moles/Vol] 100 mmol/L Normal 98-109 [facility] Comment on above: Performed By: #### P INR, 66842-2, 718-7, PLTCT, BMP, 11755-9 #### [facility] ([id number]) [address], [address] [place] [address] CO2 [Moles/Vol] 30 mmol/L Normal 22-32 [facility] Comment on above: Performed By: #### P INR, 06189-6, 718-7, PLTCT, BMP, 42566-7 #### [facility] ([id number]) [address], [address] [place] [address] Creatinine [Mass/Vol] 1.05 mg/dL High 0.40-1.00 [facility] Comment on above: Result Comment: METH OD TRACEABLE TO IDMS STANDARD Performed By: #### P INR, 81349-3, 718-7, PLTCT, BMP, 94822-1 #### [facility] ([id number]) [address], [facility] [address] [place] [address] GFR/1.73 sq M.predicted among non-blacks MDRD (S/P/Bld) [Vol rate/Area] 58 mL/min/{1.73_m2} Low >59 [facility] Comment on above: Result Comment: Reported eGFR is based on the CKD-EPI 2020 equation that does not use a race coefficient. Performed By: #### P INR, 35042-2, 718-7, PLTCT, BMP, 04521-4 #### [facility] ([id number]) [address], [facility] [address] [place] [address] Glucose [Mass/Vol] 122 mg/dL High 65-99 [facility] Comment on above: Performed By: #### P INR, 38565-0, 718-7, PLTCT, BMP, 92174-4 #### [facility] ([id number]) [address], [facility] [address] [place] [address] Potassium [Moles/Vol] 4.4 mmol/L Normal 3.5-5.0 [facility] Comment on above: Performed By: #### P INR, 85307-3, 718-7, PLTCT, BMP, 11819-3 #### [facility] ([id number]) [address] [place] [address] Sodium [Moles/Vol] 141 mmol/L Normal 134-146 [facility] Comment on above: Performed By: #### P INR, 70502-7, 718-7, PLTCT, BMP, 41887-1 #### [facility] ([id number]) [address], [address] [place] [address] Urea nitrogen [Mass/Vol] 22 mg/dL Normal 5-27 [facility] Comment on above: Performed By: #### P INR, 84214-7, 718-7, PLTCT, BMP, 97186-1 #### [facility] ([id number]) [address], [address] [place] [address] Basic Metabolic Panelon Anion gap [Moles/Vol] 11 mmol/L 5 - 15 mmol/L [facility] Calcium [Mass/Vol] 7.4 mg/dL Low 8.5 - 10. 5 mg/dL [facility] Chloride [Moles/Vol] 100 mmol/L 98 - 109 mmol/L [facility] CO2 [Moles/Vol] 30 mmol/L 22 - 32 mmol/L [facility] Creatinine [Mass/Vol] 1.05 mg/dL High 0.40 - 1.00 mg/dL [facility] Comment on above: METHOD TRACEABLE TO [facility] STANDARD eGFR (CKD-EPI)non-race dependent 58 Low - PINF [facility] Comment on above: Reported eGFR is based on the CKD-EPI 2020 equation that does not use a race coefficient. Glucose [Mass/Vol] 122 mg/dL High 65 - 99 mg/dL [facility] Interpretation and review of laboratory results Abnormal [facility] Potassium [Moles/Vol] 4.4 mmol/L 3.5 - 5.0 mmol/L [facility] Sodium [Moles/Vol] 141 mmol/L 134 - 146 mmol/L [facility] Urea nitrogen [Mass/Vol] 22 mg/dL 5 - 27 mg/dL [facility] CBC without diffon Erythrocyte distribution width (RBC) [Ratio] 13.0 % 11.5 - 15.0 % [facility] Hematocrit (Bld) [Volume fraction] 37.7 % 35 - 47 % [facility] Hemoglobin (Bld) [Mass/Vol] 12.5 g/dL 11.7 - 15.5 g/dL [facility] Interpretation and review of laboratory results Abnormal [facility] MCH (RBC) [Entitic mass] 34.4 pg High 27 - 34 pg [facility] MCHC (RBC) [Mass/Vol] 33.1 g/dL 32 - 36 g/dL [facility] MCV (RBC) [Entitic vol] 104 fL High 80 - 100 fL [facility] Platelet mean volume (Bld) [Entitic vol] 8.8 fL 7 - 12 fL [facility] Platelets (Bld) [#/Vol] 207 10*3/uL [facility] RBC (Bld) [#/Vol] 3.64 10*6/uL Low [facility] WBC corrected for nucl RBC Auto (Bld) [#/Vol] 8.4 [facility] COMPLETE BLOOD COUNTon 10-13 Erythrocyte distribution width (RBC) [Ratio] 13.0 % Normal 11.5-15.0 [facility] Comment on above: Performed By: #### P INR, 98155-9, 718-7, PLTCT, BMP, 72072-3 #### [facility] ([id number]) [address], [address] [place] [address] Hematocrit (Bld) [Volume fraction] 37.7 % Normal 35-47 [facility] Comment on above: Performed By: #### P INR, 36992-2, 718-7, PLTCT, BMP, 76225-9 #### [facility] ([id number]) [address], [address] [place] [address] Hemoglobin (Bld) [Mass/Vol] 12.5 g/dL Normal 11.7-15.5 [facility] Comment on above: Performed By: #### P INR, 20117-7, 718-7, PLTCT, BMP, 85113-2 #### [facility] ([id number]) [address], [address] [place] [address] MCH (RBC) [Entitic mass] 34.4 pg High 27-34 [facility] Comment on above: Performed By: #### P INR, 22811-4, 718-7, PLTCT, BMP, 86349-4 #### [facility] ([id number]) [address], [facility] [address] [place] [address] MCHC (RBC) [Mass/Vol] 33.1 g/dL Normal 32-36 [facility] Comment on above: Performed By: #### P INR, 88509-2, 718-7, PLTCT, BMP, 14326-2 #### [facility] ([id number]) [address], [address] [address] MCV (RBC) [Entitic vol] 104 fL High 80-100 [facility] Comment on above: Performed By: #### P INR, 67326-6, 718-7, PLTCT, BMP, 39292-6 #### [facility] ([id number]) [address], [address] [place] [address] Platelet mean volume (Bld) [Entitic vol] 8.8 fL Normal 7-12 [facility] Comment on above: Performed By: #### P INR, 04827-7, 718-7, PLTCT, BMP, 85036-1 #### [facility] ([id number]) [address], [address] [address] Platelets (Bld) [#/Vol] 207 10*3/uL Normal 150-450 [facility] Comment on above: Performed By: #### P INR, 50137-9, 718-7, PLTCT, BMP, 28361-9 #### [facility] ([id number]) [address] [address] RBC COUNT 3.64 X10E12/L Low 3.80-5.20 [facility] Comment on above: Performed By: #### P INR, 38795-7, 718-7, PLTCT, BMP, 37635-5 #### [facility] ([id number]) [address], [address] [place] [address] WBC (Bld) [#/Vol] 8.4 10*3/uL Normal 4.0-11.0 [facility] Comment on above: Performed By: #### P INR, 63840-7, 718-7, PLTCT, BMP, 39035-7 #### [facility] ([id number]) [address], [address] [place] [address] Calcium.ionized (Bld) [Mass/ Vol]on 10-14-2023 IONIZED CALCIUM 4.3 mg/dL Low 4.5-5.3 [facility] Comment on above: Performed By: #### P INR, 54722-9, 718-7, PLTCT, BMP, 77120-2 #### [facility] ([id number]) [address], [address] [place] [address] Interpretation and review of laboratory results Abnormal [facility] IONIZED CALCIUM 3.9 mg/dL Low 4.5-5.3 [facility] Comment on above: Performed By: #### P INR, 89875-1, 718-7, PLTCT, BMP, 48044-5 #### [facility] ([id number]) [address], [address] [place] [address] Interpretation and review of laboratory results Abnormal [facility] IONIZED CALCIUM 4.1 mg/dL Low 4.5-5.3 [facility] Comment on above: Performed By: #### P INR, 08662-1, 718-7, PLTCT, BMP, 41147-0 #### [facility] ([id number]) [address], [address] [place] [address] Interpretation and review of laboratory results Abnormal [facility] Coronary angiography perform edon 10-14-2023 Addendum [...] the distal LAD after that reconstitutes via [id number] collaterals. The vessel is extremely small and not amenable to PCI. Intervention No interventions have been documented. Right Atrium Normal left and right heart filling pressures. Normal pulmonary arterial pressure mildly elevated left ventricular end-diastolic pressure normal cardiac output and cardiac index. [facility] Radiology Study observation (narrative) Quofore ECG 12 leadon 10-14-2023 [facility] HGB A1C (GLYCO-HGB)on 2023 Glucose [Mass/Vol] 91 mg/dL Normal [facility] Comment on above: Performed By: #### P INR, 27372-0, 718-7, PLTCT, BMP, 38679-8 #### [facility] ([id number]) [address] [place] [address], [address] [place] [address] HbA1c (Bld) [Mass fraction] 4.8 % Normal 4.4-5.6 [facility] Comment on above: Result Comment: NOTE ADA Guidelines Result HgbA1c Normal : less than 5.7 % Prediabetes : 5.7 % to 6.4 % Diabetes : > 6.4 % Use with caution in patients with abnormal hemoglobin variants as the half-life of red blood cells and in vivo glycation rates are affected. Performed By: #### P INR, 40518-1, 718-7, PLTCT, BMP, 13492-9 #### [facility] ([id number]) [address] [place] [address], [address] [place] [address] Hemoglobin A1con 10-14-2023 Average glucose Estimated from glycated hemoglobin (Bld) [Mass/Vol] 91 mg/dL [facility] HbA1c (Bld) [Mass fraction] 4.8 % 4.4 - 5.6 % [facility] Comment on above: NOTE ADA Guidelines Result HgbA1c Normal : less than 5.7 % Prediabetes : 5.7 % to 6.4 % Diabetes : > 6.4 % Use with caution in patients with abnormal hemoglobin variants as the half-life of red blood cells and in vivo glycation rates are affected. [facility] Heparin unfractionated Chrom ogenic method Qn (PPP)on 10-14-2023 ANTI XA UFH <0.04 Low 0.30-0.70 [facility] Comment on above: Result Comment: Opti mal time for testing is 6 hrs post dosage This test is specific for monitoring patients on UFH, and is not recommended for use with other Anti-Xa medications. Performed By: #### P INR, 29579-2, 718-7, PLTCT, BMP, 40152-8 #### [facility] ([id number]) [address], [address] [place] [address] Interpretation and review of laboratory results Abnormal [facility] ANTI XA UFH 0.68 IU/mL Normal 0.30-0.70 [facility] Comment on above: Result Comment: Opti mal time for testing is 6 hrs post dosage This test is specific for monitoring patients on UFH, and is not recommended for use with other Anti-Xa medications. Performed By: #### P INR, 66637-0, 718-7, PLTCT, BMP, 57728-1 #### [facility] ([id number]) [address], [address] [place] [address] [facility] Ionized calciumon 10-14-2023 Calcium.ionized (Bld) [Mass/Vol] 4.3 mg/dL Low 4.5 - 5.3 mg/dL [facility] Calcium.ionized (Bld) [Mass/Vol] 3.9 mg/dL Low 4.5 - 5.3 mg/dL [facility] Calcium.ionized (Bld) [Mass/Vol] 4.1 mg/dL Low 4.5 - 5.3 mg/dL [facility] Ionized magnesiumon 10-14-19 24 Magnesium Ionized ISE (Bld) [Moles/Vol] 0.54 mmol/L 0.45 - 0.74 mmol/L [facility] Comment on above: NEW REFERENCE RANGE Lipid 1996 panelon 4 Cholesterol [Mass/Vol] 135 mg/dL Low 150-200 [facility] Comment on above: Performed By: #### P INR, 78938-3, 718-7, PLTCT, BMP, 74566-6 #### [facility] ([id number]) [address], [address] [place] [address] Cholesterol in HDL [Mass/Vol] 59 mg/dL Normal >39 [facility] Comment on above: Result Comment: HDL <40 mg/dL - High Risk HDL > or = 40mg/dL- Desirable HDL >60 mg/dL - Negative Risk Performed By: #### P INR, 18054-4, 718-7, PLTCT, BMP, 59749-9 #### [facility] ([id number]) [address], [address] [place] [address] Cholesterol in LDL [Mass/Vol] 46 mg/dL Normal <130 [facility] Comment on above: Result Comment: LDL <100 mg/dL - Desirable LDL >160 mg/dL - High Risk Performed By: #### P INR, 39713-5, 718-7, PLTCT, BMP, 44383-4 #### [facility] ([id number]) [address], [address] [place] [address] Cholesterol in VLDL [Mass/Vol] 30 mg/dL Normal 0-30 [facility] Comment on above: Performed By: #### P INR, 43081-7, 718-7, PLTCT, BMP, 51256-4 #### [facility] ([id number]) [address], [address] [place] [address] CHOLESTEROL:HDL 2.3 Normal 1.0-5.0 [facility] Comment on above: Performed By: #### P INR, 98716-2, 718-7, PLTCT, BMP, 19924-5 #### [facility] ([id number]) [address], [address] [place] [address] Triglyceride [Mass/Vol] 150 mg/dL Normal 27-150 [facility] Comment on above: Performed By: #### P INR, 76627-2, 718-7, PLTCT, BMP, 04160-5 #### [facility] ([id number]) [address], [address] [place] [address] Cholesterol [Mass/Vol] 135 mg/dL Low 150 - 200 mg/dL [facility] Cholesterol in HDL [Mass/Vol] 59 mg/dL 39 - PINF mg/dL [facility] Comment on above: HDL <40 mg/dL - High Risk HDL > or = 40mg/dL- Desirable HDL >60 mg/dL - Negative Risk Cholesterol in LDL [Mass/Vol] 46 mg/dL NINF - 130 mg/dL [facility] Comment on above: LDL <100 mg/dL - Desirable LDL >160 mg/dL - High Risk Cholesterol in VLDL [Mass/Vol] 30 mg/dL 0 - 30 mg/dL [facility] Cholesterol.total/C holesterol in HDL [Mass ratio] 2.3 {ratio} 1.0 - 5.0 [facility] Interpretation and review of laboratory results Abnormal [facility] Triglyceride [Mass/Vol] 150 mg/dL 27 - 150 mg/dL [facility] MAGNESIUMon 10-14-2023 Magnesium [Mass/Vol] 1.8 mg/dL Normal 1.8-2.6 [facility] Comment on above: Performed By: #### P INR, 68267-9, 718-7, PLTCT, BMP, 19103-1 #### [facility] ([id number]) [address], [address] [place] [address] Magnesiumon 10-14-2023 Magnesium [Mass/Vol] 1.8 mg/dL 1.8 - 2.6 mg/dL [facility] Magnesium Ionized ISE (Bld) [Moles/Vol]on 10-14-2023 Magnesium [Moles/Vol] 0.54 mmol/L Normal 0.45-0.74 [facility] Comment on above: Result Comment: NEW REFERENCE RANGE Performed By: #### P INR, 90022-7, 718-7, PLTCT, BMP, 36599-9 #### [facility] ([id number]) [address], [address] [place] [address] [facility] No Panel Informationon 10-13 [facility] APTTon 10-13-2023 aPTT Coag (PPP) [Time] 48 s [facility] Anti XA unfractionated hepar inon 10-13-2023 Heparin unfractionated Chromogenic method Qn (PPP) 0.74 [facility] Comment on above: Optimal time for marky ting is 6 hrs post dosage This test is specific for monitoring patients on UFH, and is not recommended for use with other Anti-Xa medications. Heparin unfractionated Chromogenic method Qn (PPP) 0.69 [facility] Comment on above: Optimal time for marky ting is 6 hrs post dosage This test is specific for monitoring patients on UFH, and is not recommended for use with other Anti-Xa medications. Heparin unfractionated Chromogenic method Qn (PPP) 0.72 [facility] Comment on above: Optimal time for marky ting is 6 hrs post dosage This test is specific for monitoring patients on UFH, and is not recommended for use with other Anti-Xa medications. BASIC METABOLIC PANLon 10-12 Anion gap [Moles/Vol] 13 mmol/L Normal 5-15 [facility] Comment on above: Performed By: #### P INR, 87407-2, 718-7, PLTCT, BMP, 35333-7 #### [facility] ([id number]) [address], [address] [place] [address] Calcium [Mass/Vol] 6.3 mg/dL Critically low 8.5-10.5 [facility] Comment on above: Performed By: #### P INR, 38056-5, 718-7, PLTCT, BMP, 71208-5 #### [facility] ([id number]) [address], [address] [place] [address] Chloride [Moles/Vol] 100 mmol/L Normal 98-109 [facility] Comment on above: Performed By: #### P INR, 38755-7, 718-7, PLTCT, BMP, 83340-2 #### [facility] ([id number]) [address], [address] [place] [address] CO2 [Moles/Vol] 30 mmol/L Normal 22-32 [facility] Comment on above: Performed By: #### P INR, 33358-1, 718-7, PLTCT, BMP, 66816-3 #### [facility] ([id number]) [address], [address] [place] [address] Creatinine [Mass/Vol] 0.79 mg/dL Normal 0.40-1.00 [facility] Comment on above: Result Comment: METH OD TRACEABLE TO IDMS STANDARD Performed By: #### P INR, 78589-0, 718-7, PLTCT, BMP, 88921-2 #### [facility] ([id number]) [address], [address] [place] [address] GFR/1.73 sq M.predicted among non-blacks MDRD (S/P/Bld) [Vol rate/Area] 81 mL/min/{1.73_m2} Normal >59 [facility] Comment on above: Result Comment: Reported eGFR is based on the CKD-EPI 2020 equation that does not use a race coefficient. Performed By: #### P INR, 88439-5, 718-7, PLTCT, BMP, 80156-0 #### [facility] ([id number]) [address], [address] [place] [address] Glucose [Mass/Vol] 157 mg/dL High 65-99 [facility] Comment on above: Performed By: #### P INR, 19395-5, 718-7, PLTCT, BMP, 54245-1 #### [facility] ([id number]) [address], [address] [place] [address] Potassium [Moles/Vol] 3.4 mmol/L Low 3.5-5.0 [facility] Comment on above: Performed By: #### P INR, 35185-1, 718-7, PLTCT, BMP, 38423-5 #### [facility] ([id number]) [address], [address] [place] [address] Sodium [Moles/Vol] 143 mmol/L Normal 134-146 [facility] Comment on above: Performed By: #### P INR, 87617-7, 718-7, PLTCT, BMP, 61841-4 #### [facility] ([id number]) [address], [address] [place] [address] Urea nitrogen [Mass/Vol] 16 mg/dL Normal 5-27 [facility] Comment on above: Performed By: #### P INR, 43207-7, 718-7, PLTCT, BMP, 14741-2 #### [facility] ([id number]) [address], [address] [place] [address] Anion gap [Moles/Vol] 15 mmol/L Normal 5-15 [facility] Comment on above: Performed By: #### P INR, 91675-5, 718-7, PLTCT, BMP, 52405-4 #### [facility] ([id number]) [address], [address] [place] [address] Calcium [Mass/Vol] 6.5 mg/dL Critically low 8.5-10.5 [place] Comment on above: Performed By: #### P INR, 24210-5, 718-7, PLTCT, BMP, 22779-4 #### [facility] ([id number]) [address], [address] [place] [address] Chloride [Moles/Vol] 100 mmol/L Normal 98-109 [facility] Comment on above: Performed By: #### P INR, 43091-9, 718-7, PLTCT, BMP, 46527-4 #### [facility] ([id number]) [address], [address] [place] [address] CO2 [Moles/Vol] 30 mmol/L Normal 22-32 [facility] Comment on above: Performed By: #### P INR, 64911-0, 718-7, PLTCT, BMP, 20694-4 #### [facility] ([id number]) [address], [address] [place] [address] Creatinine [Mass/Vol] 0.88 mg/dL Normal 0.40-1.00 [facility] Comment on above: Result Comment: METH OD TRACEABLE TO IDMS STANDARD Performed By: #### P INR, 13326-9, 718-7, PLTCT, BMP, 80041-1 #### [facility] ([id number]) [address], [address] [place] [address] GFR/1.73 sq M.predicted among non-blacks MDRD (S/P/Bld) [Vol rate/Area] 71 mL/min/{1.73_m2} Normal >59 [facility] Comment on above: Result Comment: Reported eGFR is based on the CKD-EPI 2020 equation that does not use a race coefficient. Performed By: #### P INR, 25085-9, 718-7, PLTCT, BMP, 43751-1 #### [facility] ([id number]) [address], [address] [place] [address] Glucose [Mass/Vol] 154 mg/dL High 65-99 [facility] Comment on above: Performed By: #### P INR, 32931-9, 718-7, PLTCT, BMP, 09865-9 #### [facility] ([id number]) [address], [address] [place] [address] Potassium [Moles/Vol] 3.4 mmol/L Low 3.5-5.0 [facility] Comment on above: Performed By: #### P INR, 04347-0, 718-7, PLTCT, BMP, 21834-5 #### [facility] ([id number]) [address], [address] [place] [address] Sodium [Moles/Vol] 145 mmol/L Normal 134-146 [facility] Comment on above: Performed By: #### P INR, 61989-9, 718-7, PLTCT, BMP, 16061-3 #### [facility] ([id number]) [address], [address] [place] [address] Urea nitrogen [Mass/Vol] 16 mg/dL Normal 5-27 [facility] Comment on above: Performed By: #### P INR, 54758-9, 718-7, PLTCT, BMP, 51944-2 #### [facility] ([id number]) [address], [address] [place] [id number] Basic Metabolic Panelon 04-0 Anion gap [Moles/Vol] 13 mmol/L 5 - 15 mmol/L [facility] Calcium [Mass/Vol] 6.3 mg/dL Critically low 8.5 - 1 0.5 mg/dL [facility] Chloride [Moles/Vol] 100 mmol/L 98 - 109 mmol/L [facility] CO2 [Moles/Vol] 30 mmol/L 22 - 32 mmol/L [facility] Creatinine [Mass/Vol] 0.79 mg/dL 0.40 - 1.00 mg/dL [facility] Comment on above: METHOD TRACEABLE TO IDMS STANDARD eGFR (CKD-EPI)non-race dependent 81 - PINF [facility] Comment on above: Reported eGFR is based on the CKD-EPI 2021 equation that does not use a race coefficient. Glucose [Mass/Vol] 157 mg/dL High 65 - 99 mg/dL [facility] Interpretation and review of laboratory results Abnormal [facility] Potassium [Moles/Vol] 3.4 mmol/L Low 3.5 - 5.0 mmol/L [facility] Sodium [Moles/Vol] 143 mmol/L 134 - 146 mmol/L [facility] Urea nitrogen [Mass/Vol] 16 mg/dL 5 - 27 mg/dL [facility] Anion gap [Moles/Vol] 15 mmol/L 5 - 15 mmol/L [facility] Calcium [Mass/Vol] 6.5 mg/dL Critically low 8.5 - 1 0.5 mg/dL [facility] Chloride [Moles/Vol] 100 mmol/L 98 - 109 mmol/L [facility] CO2 [Moles/Vol] 30 mmol/L 22 - 32 mmol/L [facility] Creatinine [Mass/Vol] 0.88 mg/dL 0.40 - 1.00 mg/dL [facility] Comment on above: METHOD TRACEABLE TO [facility] STANDARD eGFR (CKD-EPI)non-race dependent 71 - PINF [facility] Comment on above: Reported eGFR is based on the CKD-EPI 2021 equation that does not use a race coefficient. Glucose [Mass/Vol] 154 mg/dL High 65 - 99 mg/dL [facility] Potassium [Moles/Vol] 3.4 mmol/L Low 3.5 - 5.0 mmol/L [facility] Sodium [Moles/Vol] 145 mmol/L 134 - 146 mmol/L [facility] Urea nitrogen [Mass/Vol] 16 mg/dL 5 - 27 mg/dL [facility] CBC AND AUTO DIFFon 10-13-19 24 ABSOLUTE BASOPHIL 0.0 X10E9/L Normal 0.0-0.2 [facility] Comment on above: Performed By: #### C BCA, 70949-5, THYR, 33225-1 #### [facility] ([id number]) [address] [place] [address] ABSOLUTE NEUTROPHIL 4.2 X10E9/L Normal 1.5-6.6 [facility] Comment on above: Performed By: #### C BCA, , THYR, 84870-7 #### [facility] ([id number]) [address], [address] [place] [address] Basophils/100 WBC (Bld) 0.1 % Normal [facility] Comment on above: Performed By: #### C BCA, , THYR, 75989-3 #### [facility] ([id number]) [address] [place] [address] Eosinophils (Bld) [#/Vol] 0.0 10*3/uL Normal 0.0-0.4 [facility] Comment on above: Performed By: #### Berhane BCA, , THYR, 66282-0 #### [facility] ([id number]) [address], [address] [place] [address] Eosinophils/100 WBC (Bld) 0.0 % Normal [facility] Comment on above: Performed By: #### Berhane BCA, , THYR, 00705-6 #### [facility] ([id number]) [address] [place] [address] Erythrocyte distribution width (RBC) [Ratio] 12.5 % Normal 11.5-15.0 [facility] Comment on above: Performed By: #### C BCA, , THYR, 55158-5 #### [facility] ([id number]) [address], [address] [place] [address] Hematocrit (Bld) [Volume fraction] 39.2 % Normal 35-47 [facility] Comment on above: Performed By: #### C BCA, , THYR, 46558-8 #### [facility] ([id number]) [address], [address] [place] [address] Hemoglobin (Bld) [Mass/Vol] 13.2 g/dL Normal 11.7-15.5 [facility] Comment on above: Performed By: #### C HENRI, , THYR, 11415-0 #### [facility] ([id number]) [address], [facility] [address] [place] [address] Lymphocytes (Bld) [#/Vol] 0.9 10*3/uL Low 1.0-3.5 [facility] Comment on above: Performed By: #### C HENRI, , THYR, 85756-2 #### [facility] ([id number]) [address], [facility] [address] [place] [address] Lymphocytes/100 WBC (Bld) 17.5 % Normal [facility] Comment on above: Performed By: #### Berhane ÁLVAREZ, , THYR, 06993-2 #### [facility] ([id number]) [address], [address] [place] [address] MCH (RBC) [Entitic mass] 34.6 pg High 27-34 [facility] Comment on above: Performed By: #### Berhane BCA, , THYR, 21923-6 #### [facility] ([id number]) [address], [address] [place] [address] MCHC (RBC) [Mass/Vol] 33.6 g/dL Normal 32-36 [facility] Comment on above: Performed By: #### C BCA, , THYR, 65239-3 #### [facility] ([id number]) [address], [address] [place] [address] MCV (RBC) [Entitic vol] 103 fL High 80-100 [facility] Comment on above: Performed By: #### Berhane BCA, , THYR, 83367-2 #### [facility] ([id number]) [address], [address] [place] [address] Monocytes (Bld) [#/Vol] 0.1 10*3/uL Normal 0-0.9 [facility] Comment on above: Performed By: #### Berhane BCA, , THYR, 96551-2 #### [facility] ([id number]) [address], [address] [place] [address] Monocytes/100 WBC (Bld) 2.5 % Normal [facility] Comment on above: Performed By: #### Berhane BCA, , THYR, 37923-8 #### [facility] ([id number]) [address], [address] [place] [address] Neutrophils/100 WBC (Bld) 79.9 % Normal [facility] Comment on above: Performed By: #### Berhane BCA, , THYR, 99935-7 #### [facility] ([id number]) [address], [address] [place] [address] Platelet mean volume (Bld) [Entitic vol] 8.6 fL Normal 7-12 [facility] Comment on above: Performed By: #### Berhane BCA, , THYR, 92521-2 #### [facility] ([id number]) [address], [address] [place] [address] Platelets (Bld) [#/Vol] 176 10*3/uL Normal 150-450 [facility] Comment on above: Performed By: #### Berhane BCA, , THYR, 36791-5 #### [facility] ([id number]) [address], [address] [place] [address] RBC COUNT 3.80 X10E12/L Normal 3.80-5.20 [facility] Comment on above: Performed By: #### Berhane BCA, , THYR, 39751-7 #### [facility] ([id number]) [address], [address] [place] [address] WBC (Bld) [#/Vol] 5.3 10*3/uL Normal 4.0-11.0 [facility] Comment on above: Performed By: #### C BCA, 15752-5, THYR, 90260-9 #### [facility] ([id number]) [address], [address] [place] [address] CBC auto differentialon 04-0 Basophils (Bld) [#/Vol] 0.0 10*3/uL [facility] Basophils/100 WBC (Bld) 0.1 % [facility] Eosinophils (Bld) [#/Vol] 0.0 10*3/uL [facility] Eosinophils/100 WBC (Bld) 0.0 % [facility] Erythrocyte distribution width (RBC) [Ratio] 12.5 % 11.5 - 15.0 % [facility] Hematocrit (Bld) [Volume fraction] 39.2 % 35 - 47 % [facility] Hemoglobin (Bld) [Mass/Vol] 13.2 g/dL 11.7 - 15.5 g/dL [facility] Interpretation and review of laboratory results Abnormal [facility] Lymphocytes (Bld) [#/Vol] 0.9 10*3/uL Low [facility] Lymphocytes/100 WBC (Bld) 17.5 % [facility] MCH (RBC) [Entitic mass] 34.6 pg High 27 - 34 pg [facility] MCHC (RBC) [Mass/Vol] 33.6 g/dL 32 - 36 g/dL [facility] MCV (RBC) [Entitic vol] 103 fL High 80 - 100 fL [facility] Monocytes (Bld) [#/Vol] 0.1 10*3/uL [facility] Monocytes/100 WBC (Bld) 2.5 % [facility] Neutrophils (Bld) [#/Vol] 4.2 10*3/uL [facility] Neutrophils/100 WBC (Bld) 79.9 % [facility] Platelet mean volume (Bld) [Entitic vol] 8.6 fL 7 - 12 fL [facility] Platelets (Bld) [#/Vol] 176 10*3/uL [facility] RBC (Bld) [#/Vol] 3.80 10*6/uL [facility] WBC corrected for nucl RBC Auto (Bld) [#/Vol] 5.3 [facility] Calcium.ionized (Bld) [Mass/ Vol]on 10-13-2023 IONIZED CALCIUM 3.9 mg/dL Low 4.5-5.3 [facility] Comment on above: Performed By: #### P INR, 51665-0, 718-7, PLTCT, BMP, 84975-8 #### [facility] ([id number]) [address], [address] [place] [address] Interpretation and review of laboratory results Abnormal [facility] IONIZED CALCIUM 3.8 mg/dL Low 4.5-5.3 [facility] Comment on above: Performed By: #### 3 8230-9, 24262-3 #### [facility] ([id number]) [address], [address] [place] [address] Cardiac echo study Procedure on 10-13-2023 Aortic root 2.90 cm [facility] AV mean gradient 2.00 mmHg [facility] AV peak gradient 3.68 mmHg [facility] AV peak jeannie 95.90 cm/s [facility] AV valve area 2.03 cm2 [facility] AV Velocity Ratio 0.65 [facility] AV VTI 18.60 cm [facility] E wave deceleration time 124.00 msec [facility] E/A ratio 1.81 [facility] FS 11 % 28 - 44 % [facility] Interventricular Septum Diastolic Thickness by 2D 9 cm [facility] IVS 0.90 cm 0.6 - 1.1 [address] [facility] LA size 3.10 cm [facility] LA volume 35.80 cm3 [facility] LA Volume Index 20.8 mL/m2 [facility] Left Ventricle Mass 142.622630231683206 g [facility] LV ESV A2C 39.00 mL [facility] LV ESV A4C 31.30 mL [facility] LV RWT 2D 44.44 [facility] LVIDd 4.50 cm [facility] LVIDs 4.00 cm [facility] LVOT diameter 2.00 cm [facility] LVOT peak jeannie 0.58 m/s [facility] LVOT peak VTI 12.00 cm [facility] LVOT stroke volume 37.70 ml [facility] MV Peak A Jeannie 49.50 cm/s [facility] MV Peak E Jeannie 89.70 cm/s [facility] MV pressure 1/2 time 36.00 ms [facility] MV TDI E' (medial) 10.60 cm/s [facility] MV valve area p 1/2 method 6.11 cm2 [facility] PW 1.00 cm 0.6 - 1.[address] [facility] RA area 11.2 cm2 [facility] RV diastolic dimension (basal) 30.0 mm [facility] TAPSE 1.04 cm [facility] TDI 11.90 cm/s [facility] TR peak gradient 11.42 mmHg [facility] TR Peak Jeannie 1.7 m/s [facility] Valve area - Index 1.2 [facility] Left Ventricle: Systolic function is severely decreased [...] anteroseptal, apical septal and apical inferior. XCELERA [facility] Radiology Study observation (narrative) [facility] EKGon 10-13-2023 TRACEMASTERVUE [facility] Glucose Glucometer (BldC) [M ass/Vol]on 10-13-2023 Glucose [Mass/Vol] 173 mg/dL High 65-99 [facility] HEMOGLOBINon 10-13-2023 Hemoglobin (Bld) [Mass/Vol] 12.8 g/dL Normal 11.7-15.5 [facility] Comment on above: Performed By: #### P INR, 32114-2, 718-7, PLTCT, BMP, 64135-7 #### [facility] ([id number]) [address], [address] [place] [address] Hemoglobinon 10-13-2023 Hemoglobin (Bld) [Mass/Vol] 12.8 g/dL 11.7 - 15.5 g/dL [facility] Heparin unfractionated Chrom ogenic method Qn (PPP)on 10-13-2023 ANTI XA UFH 0.74 IU/mL High 0.30-0.70 [facility] Comment on above: Result Comment: Opti mal time for testing is 6 hrs post dosage This test is specific for monitoring patients on UFH, and is not recommended for use with other Anti-Xa medications. Performed By: #### P INR, 42949-7, 718-7, PLTCT, BMP, 79048-9 #### [facility] ([id number]) [address], [address] [place] [address] Interpretation and review of laboratory results Abnormal [facility] ANTI XA UFH 0.69 IU/mL Normal 0.30-0.70 [facility] Comment on above: Result Comment: Opti mal time for testing is 6 hrs post dosage This test is specific for monitoring patients on UFH, and is not recommended for use with other Anti-Xa medications. Performed By: #### P INR, 17354-9, 718-7, PLTCT, BMP, 38451-3 #### [facility] ([id number]) [address] [place] [address] [facility] ANTI XA UFH 0.72 IU/mL High 0.30-0.70 [facility] Comment on above: Result Comment: Opti mal time for testing is 6 hrs post dosage This test is specific for monitoring patients on UFH, and is not recommended for use with other Anti-Xa medications. Performed By: #### P INR, 87356-3, 718-7, PLTCT, BMP, 33481-4 #### [facility] ([id number]) [address], [address] [place] [address] Interpretation and review of laboratory results Abnormal [facility] Ionized calciumon 10-13-2023 Calcium.ionized (Bld) [Mass/Vol] 3.9 mg/dL Low 4.5 - 5.3 mg/dL [facility] Calcium.ionized (Bld) [Mass/Vol] 3.8 mg/dL Low 4.5 - 5.3 mg/dL [facility] Ionized magnesiumon 10-13-19 Magnesium Ionized ISE (Bld) [Moles/Vol] 0.64 mmol/L 0.45 - 0.74 mmol/L [facility] Comment on above: NEW REFERENCE RANGE Magnesium Ionized ISE (Bld) [Moles/Vol] 0.24 mmol/L Critically low 0.45 - 0.74 mmol/L [facility] Comment on above: NEW REFERENCE RANGE MAGNESIUMon 10-13-2023 Magnesium [Mass/Vol] 1.1 mg/dL Low 1.8-2.6 [facility] Comment on above: Performed By: #### P INR, 83304-2, 8-7, PLTCT, BMP, 79520-0 #### [facility] ([id number]) [address], [address] [place] [address] Magnesiumon 10-13-2023 Magnesium [Mass/Vol] 1.1 mg/dL Low 1.8 - 2.6 mg/dL [facility] Magnesium Ionized ISE (Bld) [Moles/Vol]on 10-13-2023 Magnesium [Moles/Vol] 0.64 mmol/L Normal 0.45-0.74 [facility] Comment on above: Result Comment: NEW REFERENCE RANGE Performed By: #### P INR, 90312-9, 718-7, PLTCT, BMP, 75481-6 #### [facility] ([id number]) [address], [address] [place] [address] Magnesium [Moles/Vol] 0.24 mmol/L Critically low 0.45-0.74 [facility] Comment on above: Result Comment: NEW REFERENCE RANGE Performed By: #### 3 8230-9, 89466-1 #### [facility] ([id number]) [address], [address] [place] [address] Magnesium [Mass/Vol]on 10-12 Interpretation and review of laboratory results Abnormal [facility] Natriuretic peptide B [Mass/ Vol]on 10-13-2023 Natriuretic peptide B (Bld) [Mass/Vol] 1101 pg/mL High <100.0 [facility] Comment on above: Performed By: #### P INR, 10467-6, 718-7, PLTCT, BMP, 82730-4 #### [facility] ([id number]) [address], [address] [place] [address] Interpretation and review of laboratory results Abnormal [facility] Natriuretic peptide B (Bld) [Mass/Vol] 1101 pg/mL High NINF - 100.0 pg/mL [facility] No Panel Informationon 10-12 [facility] Interpretation and review of laboratory results Abnormal [facility] Interpretation and review of laboratory results Abnormal [facility] Interpretation and review of laboratory results Abnormal [facility] PLATELET COUNT AND MPVon Platelet mean volume (Bld) [Entitic vol] 8.8 fL Normal 7-12 [facility] Comment on above: Performed By: #### P INR, 24879-8, 718-7, PLTCT, BMP, 48040-7 #### [facility] ([id number]) [address], [address] [place] [address] Platelets (Bld) [#/Vol] 158 10*3/uL Normal 150-450 [facility] Comment on above: Performed By: #### P INR, 84235-7, 718-7, PLTCT, BMP, 84878-1 #### [facility] ([id number]) [address], [address] [place] [address] POTASSIUMon 10-13-2023 Potassium [Moles/Vol] 4.5 mmol/L Normal 3.5-5.0 [facility] Comment on above: Performed By: #### P INR, 80208-0, 718-7, PLTCT, BMP, 52552-0 #### [facility] ([id number]) [address] [place] [address] Potassium [Moles/Vol] 3.1 mmol/L Low 3.5-5.0 [facility] Comment on above: Performed By: #### P INR, 87758-4, 718-7, PLTCT, BMP, 67409-0 #### [facility] ([id number]) [address], [address] [place] [address] PROTIME AND INRon 10-13-2023 INR Coag (PPP) [Relative time] 1.4 {INR} High 0.8-1.1 [facility] Comment on above: Performed By: #### P INR, 75524-5, 718-7, PLTCT, BMP, 07891-3 #### [facility] ([id number]) [address], [address] [place] [address] PT Coag (PPP) [Time] 16.6 s High 9.8-13.2 [facility] Comment on above: Performed By: #### P INR, 63806-0, 718-7, PLTCT, BMP, 51270-8 #### [facility] ([id number]) [address], [address] [place] [address] Platelet counton 10-13-2023 Platelet mean volume (Bld) [Entitic vol] 8.8 fL 7 - 12 fL [facility] Platelets (Bld) [#/Vol] 158 10*3/uL [facility] Potassiumon 10-13-2023 Potassium [Moles/Vol] 4.5 mmol/L 3.5 - 5.0 mmol/L [facility] Potassium [Moles/Vol] 3.1 mmol/L Low 3.5 - 5.0 mmol/L [facility] Potassium [Moles/Vol]on [facility] Interpretation and review of laboratory results Abnormal [facility] Protime & INRon 10-13-2023 INR Coag (PPP) [Relative time] 1.4 {INR} High [facility] PT Coag (PPP) [Time] 16.6 s High [facility] THYROID PROFILEon 10-13-2023 Free T4 [Mass/Vol] 1.15 ng/dL Normal 0.61-1.60 [facility] Comment on above: Performed By: #### P INR, 05127-0, 718-7, PLTCT, BMP, 95308-2 #### [facility] ([id number]) [address] [place] [address] TSH 1.80 uIU/mL Normal 0.49-4.67 [facility] Comment on above: Performed By: #### P INR, 09824-6, 718-7, PLTCT, BMP, 99942-1 #### [facility] ([id number]) [address], [address] [place] [address] TROPONIN Ion 10-13-2023 Troponin I.cardiac [Mass/Vol] 9.76 ng/mL Critically high 0.00-0.04 [facility] Comment on above: Result Comment: Concentrations greater than or equal to 0.05 ng/ml are considered elevated. Elevations of Troponin may be due to causes other than myocardial ischemia. Recommend serial Troponin testing be performed. Performed By: #### P INR, 59338-9, 718-7, PLTCT, BMP, 11672-7 #### [facility] ([id number]) [address] [place] [address], [address] [address] Troponin I.cardiac [Mass/Vol] 13.09 ng/mL Critically high 0.00-0.04 [facility] Comment on above: Result Comment: Concentrations greater than or equal to 0.05 ng/ml are considered elevated. Elevations of Troponin may be due to causes other than myocardial ischemia. Recommend serial Troponin testing be performed. Performed By: #### P INR, 88055-8, 718-7, PLTCT, BMP, 03312-1 #### [facility] ([id number]) [address] [place] [address] Troponin I.cardiac [Mass/Vol] 13.88 ng/mL Critically high 0.00-0.04 [facility] Comment on above: Result Comment: Concentrations greater than or equal to 0.05 ng/ml are considered elevated. Elevations of Troponin may be due to causes other than myocardial ischemia. Recommend serial Troponin testing be performed. Performed By: #### P INR, 08887-3, 718-7, PLTCT, BMP, 83666-4 #### [facility] ([id number]) [address] [place] [address], [address] [address] Thyroid profile includes TSH FT4on 10-13-2023 Free T4 [Mass/Vol] 1.15 ng/dL 0.61 - 1. 60 ng/dL [facility] TSH Qn 1.80 m[IU]/L [facility] Troponin Ion 10-13-2023 Troponin I.cardiac [Mass/Vol] 9.76 ng/mL Critically high 0.00 - 0.04 ng/mL [facility] Comment on above: Concentrations greater than or equal to 0.05 ng/ml are considered elevated. Elevations of Troponin may be due to causes other than myocardial ischemia. Recommend serial Troponin testing be performed. Troponin I.cardiac [Mass/Vol] 13.09 ng/mL Critically high 0.00 - 0.04 ng/mL [facility] Comment on above: Concentrations greater than or equal to 0.05 ng/ml are considered elevated. Elevations of Troponin may be due to causes other than myocardial ischemia. Recommend serial Troponin testing be performed. Troponin I.cardiac [Mass/Vol] 13.88 ng/mL Critically high 0.00 - 0.04 ng/mL [facility] [facility] Comment on above: Concentrations greater than or equal to 0.05 ng/ml are considered elevated. Elevations of Troponin may be due to causes other than myocardial ischemia. Recommend serial Troponin testing be performed. Troponin I.cardiac [Mass/Vol ]on 10-13-2023 Interpretation and review of laboratory results Abnormal [facility] Interpretation and review of laboratory results Abnormal [facility] aPTT Coag (PPP) [Time]on aPTT Coag (Bld) [Time] 48 s High 26-37 [facility] Comment on above: Performed By: #### P INR, 33810-0, 718-7, PLTCT, BMP, 85943-5 #### [facility] ([id number]) [address] [place] [address] Glucose Glucometer (BldC) [M ass/Vol]on 10-12-2023 Glucose [Mass/Vol] 173 mg/dL High 65 - 99 mg/dL [facility] Interpretation and review of laboratory results Abnormal [facility] US Carotid arteries - bilate ralon 10-06-2023 Previous: Previous carotid duplex exam performed 02/03/2023. [...] previous report no significant changes were noted. CARDIOVASCULAR Sal Morris M D - 10/06/2023 [...] previous report no significant changes were noted. [facility] Radiology Study observation (narrative) [facility] US Carotid arteries - bilate ralOrdered By: Sal Morris on 10-06-2023 [facility] Work Phone: Blood Urea Nitrogenon 2023 Urea nitrogen [Mass/Vol] 24 mg/dL Normal 02-04 [facility] Comment on above: Performed By: #### B UN, CREAT #### [address] Creatinineon 08-06-2023 Creatinine [Mass/Vol] 1.07 mg/dL Normal 0.60-1.20 [facility] Comment on above: Performed By: #### B UN, CREAT #### [facility] [address] [place] [address] [place] Creatinine Clr Calc Pharmacy 43.30 Normal [facility] Comment on above: Result Comment: PERF ORMED BY: [place] [address] PATHOLOGIST [employer] RENTAL CLERK LAURE BRANHAM M.D. Performed By: #### B UN, CREAT #### [facility] [address] [place] [address] [place] GFR/1.73 sq M.predicted MDRD (S/P/Bld) [Vol rate/Area] 56.229 mL/min/{1.73_m2} Normal [facility] Comment on above: Performed By: #### B UN, CREAT #### [facility] [address] [place] [address] [place] BNPon 10-15-2022 Natriuretic peptide B (Bld) [Mass/Vol] 732.0 pg/mL Normal <=900.0 [facility] Comment on above: Performed By: #### C CONNER, ELEC, BNP, BUN, TSH #### [facility] [address] [place] [address] Dr. Feliz Hilton BUNon 10-15-2022 Urea nitrogen [Mass/Vol] 31.0 mg/dL Critically high 7.0-18.0 [facility] Comment on above: Performed By: #### C CONNER, ELEC, BNP, BUN, TSH #### [facility] [address] [address] [address] Feliz Hilton CBC AUTO DIFFon 10-15-2022 BASO # 0.0 103/ul Normal 0.0-0.1 [facility] Comment on above: Performed By: #### C BC ####[facility] [address] [address]Dr[address] Feliz Hilton Basophils/100 WBC (Bld) 0.8 % Normal 0.2-2.0 [facility] [facility] Comment on above: Performed By: #### C BC ####[facility] [address] [place] [id number]. Feliz Hilton EO # 0.1 103/ul Normal 0.0-0.7 [facility] Comment on above: Performed By: #### C BC ####[facility] [address] [place] [address]Dr. Feliz Hilton Eosinophils/100 WBC (Bld) 2.3 % Normal 0.9-7.0 [facility] Comment on above: Performed By: #### C BC ####[facility] [address]qu[address]zh[address] [place] [address]Dr. Feliz Hilton Erythrocyte distribution width (RBC) [Ratio] 19.8 % Critically high 11.0-15.0 [facility] Comment on above: Performed By: #### C BC ####[facility] M[address] [place], [place] [address]Dr. Feliz Hilton Hematocrit (Bld) [Volume fraction] 36.1 % Normal 36.0-48.0 [facility] Comment on above: Performed By: #### C BC ####[facility] Vmt[address] [place], [place] [address]Dr. Feliz Hilton Hemoglobin (Bld) [Mass/Vol] 11.1 g/dL Critically low 12.0-16.0 [facility] Comment on above: Performed By: #### C BC ####[facility] [address] [place], [place] [address]Dr. Feliz Hilton IG # 0.01 10e3/ul Normal 0.00-0.03 [facility] Comment on above: Performed By: #### C BC ####[facility] Ed[address] [place], [place] [address]Dr. Feliz Hilton IG % 0.2 % Normal 0.0-0.5 [facility] Comment on above: Performed By: #### C BC ####[facility] [address] [place], [place] [address]Dr. Mónicaaureliano Hilton LYMPH # 2.1 103/ul Normal 1.2-3.8 [facility] Comment on above: Performed By: #### C BC ####[facility] [address] [place] [id number]. Feliz Hilton Lymphocytes/100 WBC (Bld) 43.1 % Normal 20.5-60.0 [facility] Comment on above: Performed By: #### C BC ####[facility] [address]jlx[address] [place] [id number]. Feliz Hilton MANUAL DIFF REQ NO Normal [facility] Comment on above: Performed By: #### C BC ####[facility] F[address]suygsris[address] [place] [id number]. Feliz Yobani MCH (RBC) [Entitic mass] 28.7 pg Normal 26.7-34.0 [facility] Comment on above: Performed By: #### C BC ####[facility] [address]emisal[address] [place] [id number]. Feliz Hilton MCHC (RBC) [Mass/Vol] 30.7 g/dL Normal 29.9-35.2 [facility] Comment on above: Performed By: #### C BC ####[facility] [address]exziaehro[address] [place] [id number]. Feliz Hliton MCV (RBC) [Entitic vol] 93.3 fL Normal 81.0-99.0 [facility] Comment on above: Performed By: #### C BC ####[facility] [address]psjxmqc[address] [place] [id number]. Feliz Yobani MONO # 0.4 103/ul Normal 0.3-0.8 [facility] Comment on above: Performed By: #### C BC ####[facility] [address]urpigu[address] [place] [id number]. Feliz Yobani Monocytes/100 WBC (Bld) 9.0 % Normal 1.7-12.0 [facility] Comment on above: Performed By: #### C BC ####[facility] [address]cytvtdjho[address] [place] [id number]. Feliz Hilton NEUT # 2.1 103/ul Normal 1.4-6.5 [facility] Comment on above: Performed By: #### C BC ####[facility] [address]ll[address] [place] [id number]. Feliz Hilton Neutrophils/100 WBC (Bld) 44.6 % Normal 43.0-75.0 [facility] Comment on above: Performed By: #### C BC ####[facility] [address]mldgeacq[address] [place] [id number]. Feliz Hilton Platelet mean volume (Bld) [Entitic vol] 9.5 fL Normal 9.5-13.5 [facility] Comment on above: Performed By: #### C BC ####[facility] [address]zll[address] [place] [id number]. Feliz Hilton PLT 273 103/ul Normal 150-450 [facility] Comment on above: Performed By: #### C BC ####[facility] B[address]dfplnkc[address] [place] [id number]. Feliz Hilton RBC 3.87 106/ul Critically low 4.20-5.40 [facility] Comment on above: Performed By: #### C BC ####[facility] [address]ehsm[address] [place] [id number]. Feliz Hilton WBC 4.8 103/ul Normal 4.0-11.0 [facility] Comment on above: Performed By: #### C BC ####[facility] Sinrxnrtay[address] [place] [id number]. Feliz Hilton CREATININEon 10-15-2022 Creatinine [Mass/Vol] 1.02 mg/dL Normal 0.55-1.02 [facility] Comment on above: Performed By: #### C CONNER, ELEC, BNP, BUN, TSH #### [facility] [address] [address] [address] Feliz Hilton EGFR-AF GERMAN >60 Normal >=[address] [facility] Comment on above: Performed By: #### C CONNER, ELEC, BNP, BUN, TSH #### [facility] [address] [address] [address] Feliz Hilton EGFR-NON AF GERMAN 54 mL/min/1.73m2 Critically low >=60 [facility] Comment on above: Performed By: #### C CONNER, ELEC, BNP, BUN, TSH #### [facility] [address] [place] [address] Dr. Feliz Hilton ELECTROLYTESon 10-15-2022 Anion gap [Moles/Vol] 14.7 mmol/L Normal [facility] Comment on above: Performed By: #### C CONNER, ELEC, BNP, BUN, TSH #### [facility] [address] [place] [address] Dr. Feliz Hilton Chloride [Moles/Vol] 109 mmol/L Critically high 98-107 [facility] Comment on above: Performed By: #### C CONNER, ELEC, BNP, BUN, TSH #### [facility] [address] [place] [address] Dr. Feliz Hilton CO2 [Moles/Vol] 20.6 mmol/L Critically low 21.0-32.0 [facility] Comment on above: Performed By: #### C CONNER, ELEC, BNP, BUN, TSH #### [facility] [address] [place] [address] Dr. Feliz Hilton Potassium [Moles/Vol] 5.3 mmol/L Critically high 3.5-5.1 [facility] Comment on above: Performed By: #### C CONNER, ELEC, BNP, BUN, TSH #### [facility] [address] [place] [address] Dr. Feliz Hilton Sodium [Moles/Vol] 139 mmol/L Normal 136-145 [facility] Comment on above: Performed By: #### C CONNER, ELEC, BNP, BUN, TSH #### [facility] [address] [place] [address] Dr. Feliz Hilton TSHon 10-15-2022 TSH 3.265 uIU/mL Normal 0.358-3.[address] [facility] Comment on above: Performed By: #### C CONNER, ELEC, BNP, BUN, TSH #### [facility] [address] [place] [address] Dr. Feliz Hilton BNPon 07-16-2022 Natriuretic peptide B (Bld) [Mass/Vol] 1093.0 pg/mL Critically high <=900.0 [facility] Comment on above: Performed By: #### T SH, LIPID, ELEC, LIVER, CREA, BUN, BNP ####[facility] [address] [place], [place] [address]Dr. Feliz Hilton BUNon 07-16-2022 Urea nitrogen [Mass/Vol] 23.0 mg/dL Critically high 7.0-18.0 [facility] Comment on above: Performed By: #### T SH, LIPID, ELEC, LIVER, CREA, BUN, BNP ####[facility] [address] [place], [place] [address]EgJuan F Hilton CBC AUTO DIFFon 07-16-2022 BASO # 0.1 103/ul Normal 0.0-0.1 [facility] Comment on above: Performed By: #### C BC #### [facility] [address] [address] [address] Feliz Hilton Basophils/100 WBC (Bld) 1.3 % Normal 0.2-2.0 [facility] Comment on above: Performed By: #### C BC #### [facility] [address] [address] [address] Feliz Hilton EO # 0.3 103/ul Normal 0.0-0.7 [facility] Comment on above: Performed By: #### C BC #### [facility] [address] [address] [address] Feliz Hilton Eosinophils/100 WBC (Bld) 7.2 % Critically high 0.9-7.0 [facility] Comment on above: Performed By: #### C BC #### [facility] [address] [address] [address] Feliz Hilton Erythrocyte distribution width (RBC) [Ratio] 23.4 % Critically high 11.0-15.0 [facility] Comment on above: Performed By: #### C BC #### [facility] [address] [address] [address] Feliz Hilton Hematocrit (Bld) [Volume fraction] 30.8 % Critically low 36.0-48.0 [facility] Comment on above: Performed By: #### C BC #### [facility] [address] [address] [address] Feliz Hilton Hemoglobin (Bld) [Mass/Vol] 9.1 g/dL Critically low 12.0-16.0 [facility] Comment on above: Performed By: #### C BC #### [facility] [address] [address] [address] Feliz Hilton IG # 0.01 10e3/ul Normal 0.00-0.03 [facility] Comment on above: Performed By: #### C BC #### [facility] [address] [place] [address] Dr. Feliz Hilton IG % 0.3 % Normal 0.0-0.5 [facility] Comment on above: Performed By: #### C BC #### [facility] [address] [place] [address] Dr. Feliz Hilton LYMPH # 1.5 103/ul Normal 1.2-3.8 [facility] Comment on above: Performed By: #### C BC #### [facility] [address] [place] [address] Dr. Feliz Hilton Lymphocytes/100 WBC (Bld) 37.3 % Normal 20.5-60.0 [facility] Comment on above: Performed By: #### C BC #### [facility] [address] [place] [address] Dr. Feliz Hilton MANUAL DIFF REQ NO Normal [facility] Comment on above: Performed By: #### C BC #### [facility] [address] [place] [address] Dr. Feliz Hilton MCH (RBC) [Entitic mass] 23.9 pg Critically low 26.7-34.0 [facility] Comment on above: Performed By: #### C BC #### [facility] [address] [place] [address] Dr. Feliz Hilton MCHC (RBC) [Mass/Vol] 29.5 g/dL Critically low 29.9-35.2 [facility] Comment on above: Performed By: #### C BC #### [facility] [address] [address] [address] Feliz Hilton MCV (RBC) [Entitic vol] 81.1 fL Normal 81.0-99.0 [facility] Comment on above: Performed By: #### C BC #### [facility] [address] [address] [address] Feliz Hilton MONO # 0.4 103/ul Normal 0.3-0.8 [facility] Comment on above: Performed By: #### C BC #### [facility] [address] [address] [address] Feliz Hilton Monocytes/100 WBC (Bld) 10.3 % Normal 1.7-12.0 [facility] Comment on above: Performed By: #### C BC #### [facility] [address] [place] [address] Dr. Feliz Hilton NEUT # 1.7 103/ul Normal 1.4-6.5 [facility] Comment on above: Performed By: #### C BC #### [facility] [address] [place] [address] Dr. Feliz Hilton Neutrophils/100 WBC (Bld) 43.6 % Normal 43.0-75.0 [facility] Comment on above: Performed By: #### C BC #### [facility] [address] [address] [address] Feliz Hilton Platelet mean volume (Bld) [Entitic vol] 9.0 fL Critically low 9.5-13.5 [facility] Comment on above: Performed By: #### C BC #### [facility] [address] [place] [address] Dr. Feliz Hilton PLT 285 103/ul Normal 150-450 [facility] Comment on above: Performed By: #### C BC #### [facility] [address] [address] [address] Feliz Hilton RBC 3.80 106/ul Critically low 4.20-5.40 [facility] Comment on above: Performed By: #### C BC #### [facility] [address] [address] [address] Feliz Hilton WBC 3.9 103/ul Critically low 4.0-11.0 [facility] Comment on above: Performed By: #### C BC #### [facility] [address] [address] [address] Feliz Hilton CREATININEon 07-16-2022 Creatinine [Mass/Vol] 0.87 mg/dL Normal 0.55-1.02 [facility] Comment on above: Performed By: #### T SH, LIPID, ELEC, LIVER, CREA, BUN, BNP ####[facility] [address] [place] [address]Dr. Feliz Hilton EGFR-AF GERMAN >60 Normal >=60 [facility] Comment on above: Performed By: #### T SH, LIPID, ELEC, LIVER, CREA, BUN, BNP ####[facility] [address] [place] [address]Dr. Feliz Hilton EGFR-NON AF GERMAN >60 Normal >=60 [facility] Comment on above: Performed By: #### T SH, LIPID, ELEC, LIVER, CREA, BUN, BNP ####[facility] [address] [place] [address]Dr. Feliz Hilton D-DIMERon 07-16-2022 D-DIMER 0.89 mg/L FEU Critically high <=0.59 [facility] Comment on above: Performed By: #### D DIM #### [facility] [address] [address] [address] Feliz Hilton D-DIMER COMMENTS SEE BELOW Normal [facility] Comment on above: Result Comment: Incr [...] hospitalization. Performed By: #### D DIM #### [facility] [address] [address] [address] Feliz Hilton ELECTROLYTESon 07-16-2022 Anion gap [Moles/Vol] 13.9 mmol/L Normal [facility] Comment on above: Performed By: #### T SH, LIPID, ELEC, LIVER, CREA, BUN, BNP ####[facility] [address] [place] [address]Dr. Feliz Hilton Chloride [Moles/Vol] 111 mmol/L Critically high 98-107 [facility] Comment on above: Performed By: #### T SH, LIPID, ELEC, LIVER, CREA, BUN, BNP ####[facility] [address] [place] [address]Dr. Feliz Hilton CO2 [Moles/Vol] 21.4 mmol/L Normal 21.0-32.[address] [facility] Comment on above: Performed By: #### T SH, LIPID, ELEC, LIVER, CREA, BUN, BNP ####[facility] [address] [place] [address]Dr. Feliz Hilton Potassium [Moles/Vol] 4.3 mmol/L Normal 3.5-5.1 [facility] Comment on above: Performed By: #### T SH, LIPID, ELEC, LIVER, CREA, BUN, BNP ####[facility] [address] [place] [address]Dr. Feliz Hilton Sodium [Moles/Vol] 142 mmol/L Normal 136-145 [facility] Comment on above: Performed By: #### T SH, LIPID, ELEC, LIVER, CREA, BUN, BNP ####[facility] [address] [place] [address]Dr. Feliz Hilton GLYCOHEMOGLOBIN A1Con 2022 ADA RECOMMENDATION SEE BELOW Normal [facility] Comment on above: Result Comment: ADA RECOMMENDED LIMIT 4.0 - 6.0 ADA THERAPEUTIC TARGET < 7.0 ACTION SUGGESTED > 7.0 Performed By: #### A 1C ####[facility] [address] [place], [place] [address]Dr. Feliz Hilton Glucose [Mass/Vol] 120 mg/dL Normal [facility] Comment on above: Performed By: #### A 1C ####[facility] [address] [place], [place] [address]LbDr. Feliz Hilton HbA1c (Bld) [Mass fraction] 5.8 % Normal 4.5-6.2 [facility] Comment on above: Performed By: #### A 1C ####[facility] [address] [place] [id number]. Feliz Hilton LIPID PROFILEon 07-16-2022 CHOL-HDL RATIO NORM SEE BELOW Normal [facility] Comment on above: Result Comment: 3.3 - 4.4 LOW RISK 4.4 - 7.1 AVERAGE RISK 7.1 - 11.0 MODERATE RISK >11.0 HIGH RISK Performed By: #### T SH, LIPID, ELEC, LIVER, CREA, BUN, BNP #### [facility] [address] [address] [address] Feliz Hilton Cholesterol [Mass/Vol] 107 mg/dL Normal <=200 [facility] Comment on above: Performed By: #### T SH, LIPID, ELEC, LIVER, CREA, BUN, BNP #### [facility] [address] [address] [address] Feliz Hilton Cholesterol in HDL [Mass/Vol] 52 mg/dL Normal 40-60 [facility] Comment on above: Performed By: #### T SH, LIPID, ELEC, LIVER, CREA, BUN, BNP #### [facility] [address] [address] [address] Feliz Hilton Cholesterol in LDL [Mass/Vol] 30.2 mg/dL Normal [facility] Comment on above: Performed By: #### T SH, LIPID, ELEC, LIVER, CREA, BUN, BNP #### [facility] [address] [address] [address] Feliz Hilton Cholesterol.total/C holesterol in HDL [Mass ratio] 2.1 {ratio} Normal [facility] Comment on above: Performed By: #### T SH, LIPID, ELEC, LIVER, CREA, BUN, BNP #### [facility] [address] [address] [address] Feliz Hilton HDL NORMAL > or = 60 mg/dl - LO W CARDIOVASCULAR RISK <40 mg/dl - HIGH CARDIOVASCULAR RISK Normal [facility] Comment on above: Performed By: #### T SH, LIPID, ELEC, LIVER, CREA, BUN, BNP #### [facility] [address] [address] [address] Feliz Hilton LDL CALC NORMAL SEE BELOW Normal [facility] Comment on above: Result Comment: <100 mg/dl OPTIMAL 100 - 129 mg/dl NEAR OR ABOVE OPTIMAL 130 - 159 mg/dl BORDERLINE HIGH 160 - 189 mg/dl HIGH >190 mg/dl VERY HIGH Performed By: #### T SH, LIPID, ELEC, LIVER, CREA, BUN, BNP #### [facility] [address] [place] [address] Dr. Feliz Hilton Triglyceride [Mass/Vol] 124 mg/dL Normal <=150 [facility] Comment on above: Performed By: #### T SH, LIPID, ELEC, LIVER, CREA, BUN, BNP #### [facility] [address] [address] [address] Feliz Hilton VLDL CALC 24.8 mg/dL Normal [facility] Comment on above: Performed By: #### T SH, LIPID, ELEC, LIVER, CREA, BUN, BNP #### [facility] [address] [address] [address] Feliz Hilton LIVER PROFILEon 07-16-2022 Albumin [Mass/Vol] 2.6 g/dL Critically low 3.4-5.0 [facility] Comment on above: Performed By: #### T SH, LIPID, ELEC, LIVER, CREA, BUN, BNP #### [facility] [address] [address] [address] Feliz Hilton Albumin/Globulin [Mass ratio] 0.8 {ratio} Normal [facility] Comment on above: Performed By: #### T SH, LIPID, ELEC, LIVER, CREA, BUN, BNP #### [facility] [address] [address] [address] Feliz Hilton ALP [Catalytic activity/Vol] 63 U/L Normal 46-116 [facility] Comment on above: Performed By: #### T SH, LIPID, ELEC, LIVER, CREA, BUN, BNP #### [facility] [address] [place] [address] Dr. Feliz Hilton ALT [Catalytic activity/Vol] 18 U/L Normal 14-59 [facility] Comment on above: Performed By: #### T SH, LIPID, ELEC, LIVER, CREA, BUN, BNP #### [facility] [address] [place] [address] Dr. Feliz Hilton AST [Catalytic activity/Vol] 23 U/L Normal 15-37 [facility] Comment on above: Performed By: #### T SH, LIPID, ELEC, LIVER, CREA, BUN, BNP #### [facility] [address] [place] [address] Dr. Feliz Hilton BILI, CONJUGATED 0.1 mg/dL Normal 0.0-0.2 [facility] Comment on above: Performed By: #### T SH, LIPID, ELEC, LIVER, CREA, BUN, BNP #### [facility] [address] [place] [address] Dr. Feliz Hilton Bilirubin [Mass/Vol] 0.1 mg/dL Critically low 0.2-1.0 [facility] Comment on above: Performed By: #### T SH, LIPID, ELEC, LIVER, CREA, BUN, BNP #### [facility] [address] [place] [address] Dr. Feliz Hilton Globulin (S) [Mass/Vol] 3.1 g/dL Normal [facility] Comment on above: Performed By: #### T SH, LIPID, ELEC, LIVER, CREA, BUN, BNP #### [facility] [address] [place] [address] Dr. Feliz Hilton Protein [Mass/Vol] 5.7 g/dL Critically low 6.4-8.2 Th e [facility] Comment on above: Performed By: #### T SH, LIPID, ELEC, LIVER, CREA, BUN, BNP #### [facility] [address] [place] [address] Dr. Yilan Hilton SED RATE WESTERGRENon 2022 SED RATE 14 mm/hr Normal <=30 [facility] Comment on above: Performed By: #### S EDR ####[facility] [address] [place] [address]Dr. Feliz Hilton TSHon 07-16-2022 TSH 5.167 uIU/mL Critically high 0.358-3.740 [facility] Comment on above: Performed By: #### T SH, LIPID, ELEC, LIVER, CREA, BUN, BNP ####[facility] [address] [place] [address]Dr. Feliz Hilton VITAMIN D 25 OHon 07-16-2022 VIT D 25-OH 22.4 ng/mL Normal [facility] Comment on above: Performed By: #### V ITAD ####[facility] [address] [place] [address]Dr. Feliz Hilton VIT D RANGES SEE BELOW Normal [facility] Comment on above: Result Comment: <20 ng/mL Vit D deficient 20 - <30 ng/mL Vit D insufficient 30 - 100 ng/mL Vit D sufficient >100 ng/mL Potential Toxicity Performed By: #### V ITAD ####[facility] [address] [place] [address]DrJuan F Hilton MG MAMM SCREEN 3D ALOK CADon 06-14-2022 MG MAMM SCREEN 3D ALOK CAD Patient: ASHVIN RENE Exam Date: 06/14/2022 : 1955 Gender:F Ordering : DR TUSHAR SOLANO D.O. Admission #: [id number] Family : Order #: [id number] CLICK HERE TO VIEW EXAM RADIOLOGY REPORT PROCEDURE: MAMMOGRAM SCREENING 3D BILATERAL CAD COMPARISON: MG MAMM ALOK SCRN W CAD DIG, 05/17/2014. MAMMO ALOK SCREEN W CAD DIG, 06/18/2012. INDICATIONS: Screening mammography Calculator Name NCI Breast Cancer Risk Assessment Tool 5 Year Breast Cancer Risk 1.40% Lifetime Breast Cancer Risk 4.40% Personal Breast Cancer No Personal Ovarian Cancer No Treatments None Family Cancers None LOCATION: The [facility] BREAST COMPOSITION: Scattered areas fibroglandular density. FINDINGS: [...] Post MD on 06/14/2022 at 14:19 Normal [facility] XR hand RT min 3V*on 022 XR hand RT min 3V* [facility] [employer] Other XR hand RT min 3V* [facility] [employer] Other XR hand RT min 3V* [address] [place] [address] [employer] Other XR hand RT min 3V* [place] [id number] [employer] Other XR hand RT min 3V* XRay Report [employer] Other XR hand RT min 3V* Signed [employer] Other XR hand RT min 3V* Patient: Annette Rene MR#: [id number] [place] [employer] Other XR hand RT min 3V* 20 [employer] Other XR hand RT min 3V* : 1955 Acct:[id number] [employer] Other XR hand RT min 3V* Age/Sex: 66 / F ADM Date: 05/20/22 [employer] Other XR hand RT min 3V* Loc: XDUC Room: Type: REG CLI [employer] Other XR hand RT min 3V* Attending Dr: Virginia Marti QA TESTER-C [employer] Other XR hand RT min 3V* Copies to: ZAC Michaud [employer] Other XR hand RT min 3V* Ordering Provider: ZAC Michaud [employer] Other XR hand RT min 3V* Date of Service: 05/20/22 [employer] Other XR hand RT min 3V* XR/XR hand RT min 3V*: M79.641 [employer] Other XR hand RT min 3V* 3 viewsright hand plain film [employer] Other XR hand RT min 3V* COMPARISON:None N [employer] Other XR hand RT min 3V* HISTORY:Right hand injury. [employer] Other XR hand RT min 3V* No fracture, dislocation or focal soft tissue abnormality seen. Degenerative changes and [employer] Other XR hand RT min 3V* atherosclerosis. [employer] Other XR hand RT min 3V* XR/XR hand RT min 3V* [employer] Other XR hand RT min 3V* IMPRESSION:No acute findings [employer] Other XR hand RT min 3V* Impression dictated by: Rodrick Galvin M.D.05/20/2022 11:13 AM [employer] Other XR hand RT min 3V* Dictation Location: [facility]12 [employer] Other XR hand RT min 3V* Transcribed By: HERNAN 05/20/22 1113 [employer] Other XR hand RT min 3V* Dictated By: Rodrick Galvin DO 05/20/22 1111 [employer] Other XR hand RT min 3V* Signed By: [facility] [employer] Other XR hand RT min 3V* 05/20/22 1113 [facility] alooma Other KNEE RIGHT 3 Son KNEE RIGHT 3 S [facility] Department of Radiology [address] [place] [phone] ======== Patient Name: ASHVIN RENE : 1955 Sex: F Age: Race: White Pt. Location: Patient Status: O Ordered Date: 01/01/2021 3:20:00 PM Completed Date: 01/01/2021 03:21 PM Requesting Provider: TIARA VÁZQUEZ Attending Provider: TIARA VÁZQUEZ Report Copy To: Signs & Symptoms: M25.561 Pain in right knee I10 History: Comments: Evaluate Exam: KNEE RIGHT 3 IRA [facility] ======== KNEE RIGHT 3 S 01/01/2021 3:21 PM [...] change Electronically signed: Tawana Andrade. Transcribed by: [email or web address], User Resident: Electronically Signed by: TAWANA ANDRADE @ 01/01/2021 08:57 PM Normal [facility] Comment on above: Order Comment: Evalu ate Basic Metabolic Panlon 12-08 Anion gap [Moles/Vol] 13 mmol/L Normal 9-18 [facility] Comment on above: Performed By: #### B MP ####[place] [id number] [place], [place] [phone] Calcium [Mass/Vol] 7.1 mg/dL Low 8.5-10.2 [facility] Comment on above: Performed By: #### B MP ####[place] [address], [place] [phone] Chloride [Moles/Vol] 107 mmol/L High 97-105 [facility] Comment on above: Performed By: #### B MP ####[place] [address], [place] [phone] CO2 [Moles/Vol] 18 mmol/L Low 22-30 [facility] Comment on above: Performed By: #### B MP ####[place] [address] [place], [place] [phone] Creatinine [Mass/Vol] 0.97 mg/dL High 0.58-0.96 [facility] Comment on above: Performed By: #### B MP ####[place] [address], [place] [phone] eGFR- Amer. >60 Normal [facility] Comment on above: Performed By: #### B MP ####[place] [address], [place] [phone] eGFR-All Other Races 57 . Normal [facility] Comment on above: Result Comment: eGFR [...] actual GFR. Performed By: #### B MP ####[place] [id number] [place], [place] [phone] Glucose [Mass/Vol] 79 mg/dL Normal 74-99 [facility] Comment on above: Result Comment: The [place] Diabetes Association (ADA) provides guidance for cutoff [...] Standards of Medical Care in Diabetes 2016, [place] [employer]. Diabetes Care. 2016.39(Suppl 1). Performed By: #### B MP ####[address] [phone] Potassium [Moles/Vol] 4.4 mmol/L Normal 3.7-5.1 [facility] Comment on above: Performed By: #### B MP ####[address] [phone] Sodium [Moles/Vol] 138 mmol/L Normal 136-144 [facility] Comment on above: Performed By: #### B MP ####[address] [phone] Urea nitrogen [Mass/Vol] 15 mg/dL Normal 7-21 [facility] Comment on above: Performed By: #### B MP ####[place] [address] [place], [place] [phone] Coronavirus 2019on SARS-CoV-2 (COVID-19) RNA JESSICA+probe Ql (Unsp spec) Nasopharyngeal Swab Normal [facility] Comment on above: Performed By: #### C OVID ####[address] [phone] SARS-CoV-2 (COVID-19) RNA JESSICA+probe Ql (Unsp spec) Negative for COVID19 (SARS CoV2) by RT-PCR or equivalent method. Normal Negative for COVID19 (SARS CoV2) by RT-PCR or equivalent method. [facility] Comment on above: Result Comment: This test was developed and its performance characteristics determined by [facility] [place]. This test has been authorized by FDA under an Emergency Use Authorization (EUA). This test has been validated in accordance with the FDA's Guidance Document Policy for Diagnostics Testing in Laboratories Certified to Perform High Complexity Testing under CLIA prior to Emergency use Authorization for Coronavirus Disease 2019 during the Public Health Emergency issued on September 11, 2019. Test performed by [facility], [facility] [place], [address] [place], [place] [address]. Performed By: #### C OVID ####[address] [phone] CBCon 12-07-2020 Absolute nRBC <0.01 Normal <0.01 [facility] Comment on above: Performed By: #### C MP, CBC, PT ####[address] [phone] Erythrocyte distribution width (RBC) [Ratio] 15.1 % High 11.5-15.0 [facility] Comment on above: Performed By: #### C MP, CBC, PT ####[address] [phone] Hematocrit (Bld) [Volume fraction] 33.1 % Low 36.0-46.0 [facility] Comment on above: Performed By: #### C MP, CBC, PT ####[facility] [place], [place] [phone] Hemoglobin (Bld) [Mass/Vol] 10.0 g/dL Low 11.5-15.5 [facility] Comment on above: Performed By: #### C MP, CBC, PT ####[place] [address], [place] [phone] MCH 31.9 pG Normal 26.0-34.0 [facility] Comment on above: Performed By: #### C MP, CBC, PT ####[place] [address], [place] [phone] MCHC (RBC) [Mass/Vol] 30.2 g/dL Low 30.5-36.0 [facility] Comment on above: Performed By: #### C MP, CBC, PT ####[place] [address], [place] [phone] MCV (RBC) [Entitic vol] 105.8 fL High 80.0-100.0 [facility] Comment on above: Performed By: #### C MP, CBC, PT ####[place] [address], [place] [phone] Platelet mean volume (Bld) [Entitic vol] 9.6 fL Normal 9.0-12.7 [facility] Comment on above: Performed By: #### C MP, CBC, PT ####[place] [address], [place] [phone] Platelets (Bld) [#/Vol] 256 10*3/uL Normal 150-400 [facility] Comment on above: Performed By: #### C MP, CBC, PT ####[place] [address], [place] [phone] RBC (Bld) [#/Vol] 3.13 10*6/uL Low 3.90-5.20 [facility] Comment on above: Performed By: #### C MP, CBC, PT ####[place] [address], [place] [phone] WBC (Bld) [#/Vol] 5.83 10*3/uL Normal 3.70-11.00 [facility] Comment on above: Performed By: #### C MP, CBC, PT ####[place] [address], [place] [phone] Comp Metabolic Panelon 12-07 Albumin [Mass/Vol] 3.1 g/dL Low 3.9-4.9 [facility] Comment on above: Performed By: #### C MP, CBC, PT ####[place] [address], [place] [phone] ALP [Catalytic activity/Vol] 34 U/L Normal 34-123 [facility] Comment on above: Performed By: #### C MP, CBC, PT ####[place] [address], [place] [phone] ALT [Catalytic activity/Vol] 16 U/L Normal 7-38 [facility] Comment on above: Performed By: #### C MP, CBC, PT ####[facility], [place] [phone] Anion gap [Moles/Vol] 8 mmol/L Low 9-18 [facility] Comment on above: Performed By: #### C MP, CBC, PT ####[facility], [place] [phone] AST [Catalytic activity/Vol] 16 U/L Normal 13-35 [facility] Comment on above: Performed By: #### C MP, CBC, PT ####[facility], [place] [phone] Bilirubin [Mass/Vol] 0.2 mg/dL Normal 0.2-1.3 [facility] Comment on above: Performed By: #### C MP, CBC, PT ####[facility] [place] [phone] Calcium [Mass/Vol] 8.4 mg/dL Low 8.5-10.2 [facility] Comment on above: Performed By: #### C MP, CBC, PT ####[place] [address] [phone] Chloride [Moles/Vol] 111 mmol/L High 97-105 [facility] Comment on above: Performed By: #### C MP, CBC, PT ####[place] [address] [phone] CO2 [Moles/Vol] 21 mmol/L Low 22-30 [facility] Comment on above: Performed By: #### C MP, CBC, PT ####[place] [address] [place] [phone] Creatinine [Mass/Vol] 1.16 mg/dL High 0.58-0.96 [facility] Comment on above: Performed By: #### C MP, CBC, PT ####[place] [address] [phone] eGFR- Amer. 56 Normal [facility] Comment on above: Performed By: #### C MP, CBC, PT ####[place] [address] [phone] eGFR-All Other Races 47 . Normal [facility] Comment on above: Result Comment: eGFR [...] Performed By: #### C MP, CBC, PT ####[facility] [place], [place] [phone] Glucose [Mass/Vol] 96 mg/dL Normal 74-99 [facility] Comment on above: Result Comment: The [place] Diabetes Association (ADA) provides guidance for cutoff [...] Standards of Medical Care in Diabetes 2016, [place] Diabetes [employer]. Diabetes Care. 2016.39(Suppl 1). Performed By: #### C MP, CBC, PT ####[facility] [place], [place] [phone] Potassium [Moles/Vol] 4.7 mmol/L Normal 3.7-5.1 [facility] Comment on above: Performed By: #### C MP, CBC, PT ####[facility], [place] [phone] Protein [Mass/Vol] 5.0 g/dL Low 6.3-8.0 [facility] Comment on above: Performed By: #### C MP, CBC, PT ####[facility], [place] [phone] Sodium [Moles/Vol] 140 mmol/L Normal 136-144 [facility] Comment on above: Performed By: #### C MP, CBC, PT ####[facility], [place] [phone] Urea nitrogen [Mass/Vol] 22 mg/dL High 7-21 [facility] Comment on above: Performed By: #### C MP, CBC, PT ####[facility], [place] [phone] Protimeon 12-07-2020 PT INR 1.2 Normal 0.9-1.3 [facility] Comment on above: Result Comment: Jenny min K Antagonist (VKA) Therapeutic Range: INR 2 to 3 (Target INR of 2.5) Note: For patients treated with VKA drugs, such as warfarin, the [place] [employer]icians 2012 Guideline recommends [...] Chest 2012, 141:7S-47S Haile RA, et al. [facility] 2017, 70: 252-289 Performed By: #### C MP, CBC, PT ####[facility] [place], [place] [phone] PT Sec 12.3 sec Normal 9.7-13.0 [facility] Comment on above: Performed By: #### C MP, CBC, PT ####[facility], [place] [phone] Mirella 12-06-2020 SUNILN Telephone (PRECIOUSN) RENEASHVIN ARGUELLO ([id number]) 1955 F Date Time Provider Department 12/06/20 [...] PTCA/Stent Pre procedure education topics: Arrival time/NPO Status/Medications/Tra jeannie INSTRUCTED ON COVID RESTRICTIONS - AWARE TO HAVE INFO ANALYST Instructions/Restricti ons Patient/Family Response Evaluation: Verbalizes understanding Follow Up Plan and Medication: As directed by physician Instruction/Supplement al Material Given: Cardiac catheterization instructions, procedure information, hospital information, hotel information. Instructed By oCty Morales RN. In Department of CARDIOLOGY. Allergies [...] 12/06/2020 Noted Resolved Coronary artery disease of [place] artery of otilio*11/24/2020 S/P CABG (coronary artery bypass graft) [Z95.1] 11/24/2020 Pure hypercholesterolemia [E78.00] 11/24/2020 Type 2 diabetes mellitus without complication, *11/24/2020 Fatigue [R53.83] 11/24/2020 Encounter Status:Closed by COTY MORALES RN on 12/06/20 [facility] Mirella 11-28-2020 JEFFREY Telephone (CATHMEMO) ASHVIN RENE ([id number]) 1955 F Date Time Provider Department 11/28/20 [...] 11/29/2020 9:46 AM Signed Faxed orders to [phone] Kd Solitario 11/29/2020 12:22 PM Signed Patient called back and gave alternative fax # [phone] She would also like cath to be scheduled on 12/07. 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] Order(s):CARDIAC CANE STRIPPER ORDER [9487096] Order #: [id number]: 1 INTERMEDIATE RAPID COVID [SQITCOVD] Order #: [id number] FUTURE COMP METABOLIC PANEL [SQCMP] Order #: [id number] FUTURE CBC [SQCBC] Order #: [id number] FUTURE LIPID PANEL BASIC [SQLIPB] Order #: [id number] FUTURE CK CREATINE KINASE [SQCK] Order #: [id number] FUTURE ECG COMPLETE [ECG01] Order #: [id number] FUTURE Prescriptions as of 11/28/2020 Sig: ACETAMINOPHEN [...] 11/28/2020 Noted Resolved Coronary artery disease of [place] artery of otilio*11/24/2020 S/P CABG (coronary artery bypass graft) [Z95.1] 11/24/2020 Pure hypercholesterolemia [E78.00] 11/24/2020 Type 2 diabetes mellitus without complication, *11/24/2020 Fatigue [R53.83] 11/24/2020 Encounter Status:Closed by NAY JOSEPH on 11/29/20 Normal [facility] CNOVon 11-24-2020 CNOV Office Visit (CATHMN ) ASHVIN RENE ([id number]) 1955 F Date Time Provider Department 11/24/20 9:30 AM NAY JOSEPH During your visit today, we recorded the following information about you: Pulse Respiration Blood pressure Weight 91/minute 20/minute 108/63 64.3 kg Height 1.6 m A. Nay Joseph MD 11/29/2020 7:54 AM Signed [facility] [place] Serena Beck Department of Cardiovascular Medicine SECTION OF INTERVENTIONAL CARDIOLOGY OUTPATIENT VISIT DATE November 23, 2020 OUTPATIENT VISIT TYPE NEW PRIMARY CARE PHYSICIAN: Tushar Solano Jr, DO (Dr) [address] [place] [address] [place] [address] REFERRING PHYSICIAN: Waqas Mabry MD [facility] [place] [address] [facility] [address] CHIEF COMPLAINT: No chief complaint on file. [...] Stress nuclear at OSH: Ischemia in apical, anterior/anteriolatera l, and inferoseptal segments. LVEF 72%, TID 1.58 [...] resolved after CABG) 2015 CVA and (?) [place] 05/24/16 Echo ? Normal left ventricular end-diastolic [...] Lexiscan injection (more content not included)... Normal [facility] CNCOon 11-22-2020 CNCO Letter Text [facility] Mirella 11-22-2020 SUNILN Telephone (CATHMN) ASHVIN RENE ([id number]) 1955 F Date Time Provider Department 11/22/20 LINCOFF, NAY CATHMN During your visit today, we recorded the following information about you: Kd Solitario 11/22/2020 3:54 PM Signed Urgent records request faxed to [phone] Allergies As of Date: 11/22/2020 (Not on File) Date Reviewed: Never Reviewed Reason for Visit: Request Outside Medical Records [3575] Problem List As Of Date: 11/22/2020 (None) Encounter Status:Closed by KD SOLITARIO on 11/22/20 [facility] CNPNon 11-09-2020 CNPN Telephone (REFPHY) ASHVIN RENE ([id number]) 1955 F Date Time Provider Department 11/09/20 NO ONE (HISTORICAL) REFPHY During your visit today, we recorded the following information about you: Ashvin Veronica 11/09/2020 10:11 AM Signed Patient: Ashvin Rene Date of : 1955 Patient phone number: [phone] Referring Provider for the encounter: Dr Waqas Mabry Requesting Provider: Cardiology Reason for requesting visit (RFV/signs and symptoms/diagnosis): 2nd Opinion - Severe CAD Person calling: caregiver: ERIC Return call to: self Medical Records/Insurance Card scanned into [employer]: Yes Comments: N/A Allergies As of Date: 11/09/2020 (Not on File) Date Reviewed: Never Reviewed Reason for Visit: External Referrals/resources [039] Problem List As Of Date: 11/09/2020 (None) Encounter Status:Closed by ASHVIN DIAZ on 11/09/20 [facility] XA-CARDIAC CATHETERIZATION I MPORTon 10-25-2020 XA-CARDIAC CATHETERIZATION IMPORT Images were obtained outside of [facility] [id number] [facility] Vital Signs Date Time Vital Sign Value Performing Clinician Facility 08-24-2024 11:14-0500 Body height 154.9 cm Trung Flores MD Work Phone: [facility] 08-24-2024 11:14-0500 Body mass index (BMI) [Ratio] 25.89 kg/m2 Trung Flores MD Work Phone: [facility] 08-24-2024 11:14-0500 Body weight 62.14 kg Trung Flores MD Work Phone: [facility] 08-24-2024 11:14-0500 Diastolic blood pressure 60 mm[Hg] Trung Flores MD Work Phone: [facility] 08-24-2024 11:14-0500 Heart rate 101 /min Trung Flores MD Work Phone: [facility] 08-24-2024 11:14-0500 Systolic blood pressure 128 mm[Hg] Trung Flores MD Work Phone: [facility] 07-20-2024 09:05-0500 Body height 154.9 cm Trung Flores MD Work Phone: [facility] 07-20-2024 09:05-0500 Body mass index (BMI) [Ratio] 26.07 kg/m2 Trung Flores MD Work Phone: [facility] 07-20-2024 09:05-0500 Body weight 62.6 kg Trung Flores MD Work Phone: [facility] 07-20-2024 09:05-0500 Diastolic blood pressure 71 mm[Hg] Trung Flores MD Work Phone: [facility] 07-20-2024 09:05-0500 Heart rate 71 /min Trung Flores MD Work Phone: [facility] 07-20-2024 09:05-0500 Systolic blood pressure 146 mm[Hg] Trung Flores MD Work Phone: [facility] 10-23-2023 14:44-0400 Body height 157.5 cm Mariama Ingram MD [facility] 10-23-2023 14:44-0400 Body mass index (BMI) [Ratio] 25.24 kg/m2 Mariama Ingram MD [facility] 10-23-2023 14:44-0400 Body weight 62.6 kg Mariama Ingram MD Work Phone: [facility] [employer] 10-23-2023 14:44-0400 SaO2% (BldA) [Mass fraction] 97 % Mariama Ingram MD [facility] Phone[facility] 10-16-2023 13:40-0400 Body height 157.5 cm Genet Small DO Work Phone: [facility] [employer] 10-16-2023 13:40-0400 Body mass index (BMI) [Ratio] 27.62 kg/m2 Genet Small DO Work Phone: [facility] [employer] 10-16-2023 13:40-0400 Body weight 68.49 kg Genet Small DO [facility] 10-16-2023 13:40-0400 Diastolic blood pressure 52 mm[Hg] Genet Small DO [facility] 10-16-2023 13:40-0400 Systolic blood pressure 100 mm[Hg] Genet Small DO Work Phone: [facility] [employer] 10-15-2023 14:00-0400 Heart rate 80 /min Jonathan Baueras DO [facility] 10-15-2023 14:00-0400 Respiratory rate 15 /min Jonathan Baueras DO [facility] 10-15-2023 14:00-0400 SaO2% (BldA) [Mass fraction] 95 % Jonathan Baueras DO Work Phone[facility] 10-15-2023 12:15-0400 Body temperature 98.6 [degF] Jonathan Pizarro DO Work Phone: [facility] [employer] [facility] 10-15-2023 12:15-0400 Diastolic blood pressure 78 mm[Hg] Jonathan Pizarro DO Work Phone: [facility] [employer] [facility] 10-15-2023 12:15-0400 Systolic blood pressure 121 mm[Hg] Jonathan Pizarro DO Work Phone: [facility] 10-14-2023 05:00-0400 Body mass index (BMI) [Ratio] 27.66 kg/m2 Jonathan Pizarro DO Work Phone: [facility] 10-14-2023 05:00-0400 Body weight 68.6 kg Jonathan Pizarro DO Work Phone: [facility] 10-13-2023 11:21-0400 Body height 157.5 cm Jonathan Pizarro DO Work Phone: [facility] 08-21-2023 14:09-0500 Body temperature 97.9 [degF] Dwain Kubitz DPM Work Phone: [facility] 08-21-2023 14:09-0500 Diastolic blood pressure 62 mm[Hg] Dwain Kubitz DPM Work Phone: [facility] 08-21-2023 14:09-0500 Heart rate 84 /min Dwain Kubitz DPM Work Phone: [facility] 08-21-2023 14:09-0500 Systolic blood pressure 145 mm[Hg] Dwain Kubitz DPM Work Phone: [facility] 08-06-2023 16:00-0500 Diastolic blood pressure 65 mm[Hg] [facility] 08-06-2023 16:00-0500 Heart rate 80 /min [facility] 08-06-2023 16:00-0500 Respiratory rate 16 /min [facility] 08-06-2023 16:00-0500 SaO2% (BldA) [Mass fraction] 100 % [facility] 08-06-2023 16:00-0500 Systolic blood pressure 107 mm[Hg] [facility] 08-06-2023 12:48-0500 Inhaled oxygen flow rate 3 L/min [facility] 08-06-2023 11:08-0500 Body height 157.48 cm [facility] 08-06-2023 11:08-0500 Body weight 63.04 kg [facility] 08-04-2023 10:45-0500 Body height 160.66 cm Jolie De Luna Other [facility] [employer] Other 08-04-2023 10:45-0500 Body mass index (BMI) [Ratio] 24.43 kg/m2 Jolie Annamarie Other [employer] Other 08-04-2023 10:45-0500 Body temperature 97.8 [degF] Jolie De Luna Other [employer] Other 08-04-2023 10:45-0500 Body weight 63.05 kg Jolie Annamarie Other [employer] Other 08-04-2023 10:45-0500 Diastolic blood pressure 64 mm[Hg] Jolie De Luna Other [employer] Other 08-04-2023 10:45-0500 SaO2% (BldA) [Mass fraction] 98 % Jolie De Luna Other [employer] Other 08-04-2023 10:45-0500 Systolic blood pressure 110 mm[Hg] Jolie De Luna Other [employer] Other 06-25-2023 11:16-0500 Body height 157.5 cm Norman Braga MD Work Phone: [employer] 06-25-2023 11:16-0500 Body mass index (BMI) [Ratio] 25.79 kg/m2 Norman Braga MD Work Phone: [employer] 06-25-2023 11:16-0500 Body temperature 98.2 [degF] Norman Braga MD Work Phone: [employer] 06-25-2023 11:16-0500 Body weight 63.96 kg Norman Braga MD Work Phone: [employer] 05-20-2022 11:05-0500 Body height 160.66 cm Virginia Kaia Other [employer] Other 05-20-2022 11:05-0500 Body mass index (BMI) [Ratio] 21.09 kg/m2 Virginia Kaia Other [employer] Other 05-20-2022 11:05-0500 Body temperature 97.3 [degF] Virginia Kaia Other [employer] Other 05-20-2022 11:05-0500 Body weight 54.43 kg Virginia Kaia Other [employer] Other 05-20-2022 11:05-0500 Diastolic blood pressure 66 mm[Hg] Virginia Kaia Other [employer] Other 05-20-2022 11:05-0500 Respiratory rate 18 /min Virginia Kaia Other [employer] Other 05-20-2022 11:05-0500 SaO2% (BldA) [Mass fraction] 100 % Virginia Kaia Other [employer] Other 05-20-2022 11:05-0500 Systolic blood pressure 112 mm[Hg] Virginia Kaia Other [employer] Other 04-12-2021 15:45-0400 Body height 160.66 cm Antonio Kim Other [employer] Other 04-12-2021 15:45-0400 Body mass index (BMI) [Ratio] 25.3 kg/m2 Antonio Kim Other [employer] Other 04-12-2021 15:45-0400 Body weight 65.32 kg Antonio Kim Other [employer] Other 09-09-2019 10:00-0500 BP Diastolic 80 mm[Hg] [facility] 09-09-2019 10:00-0500 BP Systolic 138 mm[Hg] [facility] 09-09-2019 10:00-0500 Pulse (Heart Rate) 80 /min [facility] 09-09-2019 10:00-0500 Pulse Oximetry 96 % [facility] 09-09-2019 10:00-0500 Respiratory Rate 16 /min [facility] 09-09-2019 08:20-0500 BMI (Body Mass Index) 25 kg/m2 [facility] 09-09-2019 08:20-0500 Body weight 63.95 kg [facility] 09-09-2019 08:20-0500 Height 160.02 cm [facility] 09-09-2019 07:10-0500 Body Temperature 97.9 [degF] [facility] 08-12-2019 09:55-0500 BP Diastolic 73 mm[Hg] [facility] 08-12-2019 09:55-0500 BP Systolic 132 mm[Hg] [facility] 08-12-2019 09:55-0500 Pulse (Heart Rate) 86 /min [facility] 08-12-2019 09:55-0500 Pulse Oximetry 97 % [facility] 08-12-2019 09:55-0500 Respiratory Rate 16 /min [facility] 08-12-2019 08:47-0500 BMI (Body Mass Index) 25.2 kg/m2 [facility] 08-12-2019 08:47-0500 Body weight 63.5 kg [facility] 08-12-2019 08:47-0500 Height 158.75 cm [facility] 08-12-2019 07:27-0500 Body Temperature 98.8 [degF] [facility] Encounters Encounter Date Encounter Type Care Provider Facility Start: 08-24-2024 End: 08-24-2024 Tylorbotorin Flores MD Work Phone: [facility] Start: 08-24-2024 End: 08-24-2024 Milagros Flores MD Work Phone: [facility] [facility] Start: 08-24-2024 End: 08-24-2024 Office outpatient visit 15 minutes Trung Flores MD Work Phone: [facility] Comment on above: Asymmetric SNHL (sen sorineural hearing loss) (Primary Dx) Start: 08-12-2024 End: 08-12-2024 ambulatory TRUNG FLORES Not Available Start: 07-20-2024 End: 07-20-2024 Tylorboo kate Flores MD Work Phone: [facility] Start: 07-20-2024 End: 07-20-2024 Francoo kate Flores MD Work Phone: [facility] Start: 07-20-2024 End: 07-20-2024 Office outpatient visit 15 minutes Trung Flores MD Work Phone: [facility] Comment on above: Asymmetric SNHL (sen sorineural hearing loss) (Primary Dx) Start: 07-20-2024 End: 07-20-2024 ambulatory TRUNG H TIMMIS Not Available Start: 06-30-2024 End: 06-30-2024 Bamboo flowsheet Anabel Boyle CCC-A Work Phone: [facility] Start: 06-30-2024 End: 06-30-2024 Bamboo flowsheet Anabel Boyle CCC-A Work Phone: [facility] Start: 06-30-2024 End: 06-30-2024 Clinical Support Anabel Boyle CCC-A Work Phone: [facility] Comment on above: Sensorineural hearin g loss (SNHL) of both ears (Primary Dx); Tinnitus, bilateral Start: 02-17-2024 End: 02-17-2024 ambulatory TRUNG H TIMMIS Not Available Start: 10-23-2023 End: 10-23-2023 ambulatory MARIAMA INGRAM [facility] Start: 10-23-2023 End: 10-23-2023 Office outpatient visit 25 minutes Mariama Ingram MD Work Phone: [facility] Comment on above: Chronic coronary art liset disease (Primary Dx); Ischemic cardiomyopathy; Hx of CABG; Chronic HFrEF (heart failure with reduced ejection fraction) ([facility]) Start: 10-21-2023 End: 10-21-2023 Telephone encounter Gabriella Viera RN [facility] Comment on above: Hypotension Start: 10-16-2023 End: 10-16-2023 Office outpatient visit 15 minutes Genet Small DO Work Phone: [facility] Comment on above: PAD (peripheral alfredo ry disease) ([facility]) (Primary Dx) Start: 10-15-2023 End: 10-22-2023 Telephone encounter Alexi Freeman MD Work Phone: [facility] Comment on above: s/p CATH Start: 10-13-2023 ambulatory TUSHAR SOLANO [facility] Start: 10-13-2023 End: 10-15-2023 Evaluation and management of inpatient HAZEM MALAS [facility] Start: 10-12-2023 End: 10-15-2023 Evaluation and management of inpatient Jonathan Pizarro DO Work Phone: [facility] - GEN 5 ICU Comment on above: Decompensated heart failure (CMS-HCC) (Primary Dx); NSTEMI (non-ST elevated myocardial infarction) ([facility]) Start: 10-12-2023 Documentation procedure Jonathan Pizarro DO Work Phone: [facility] In Start: 10-06-2023 End: 10-07-2023 Orders Only Cheikh Rodrigez [facility] Comment on above: 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) Start: 09-09-2023 End: 09-09-2023 ambulatory DWAIN MILLS Not Available Start: 08-22-2023 Telephone encounter Alida Holder [facility] Comment on above: Santyl Start: 08-21-2023 Bamboo flowsheet Dwain moore DPM Work Phone: [facility] Start: 08-21-2023 Bamboo flowsheet Dwain moore DPM Work Phone: [facility] Start: 08-21-2023 End: 08-21-2023 Office outpatient visit 15 minutes Dwain Mills DPM Work Phone: [facility] Comment on above: 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); Gangrene (CMS/HCC); Pain in toe of right foot; Arteriosclerosis of arteries of extremities (CMS/HCC) Start: 08-21-2023 End: 08-21-2023 ambulatory DWAIN MILLS Not Available Start: 08-06-2023 End: 08-06-2023 ambulatory Tushar Solano Facility:[facility] Start: 08-06-2023 Non-patient / Non-visit [facility] Phys[facility] V[facility] Work Phone: Start: 08-04-2023 End: 08-04-2023 ambulatory Jolie De Luna Other [employer] Other Start: 08-04-2023 FQ visit new patient Jolie harkins [facility] Start: 06-25-2023 ambulatory NORMAN BRAGA [facility] Start: 06-25-2023 End: 06-25-2023 Office outpatient new 45 minutes Norman Braga MD Work Phone: [facility] Comment on above: Left knee pain, unsp ecified chronicity (Primary Dx) Start: 06-25-2023 End: 06-25-2023 Subsequent hospital visit by physician Norman Braga MD Work Phone: [facility] Start: 10-15-2022 End: 10-16-[address] TUSHAR SOLANO Facility:[facility] Start: 07-16-2022 End: 07-17-[address] TUSHAR SOLANO Facility:[facility] Start: 06-14-2022 End: 06-15-[address] TUSHAR SOLANO Facility:[facility] Start: 05-20-2022 Office outpatient vi sit 15 minutes Virginia Marti [facility] [place] Start: 05-20-2022 End: 05-20-2022 ambulatory JR Tushar Solano Work Phone: [facility] Work Phone: Start: 05-20-2022 End: 05-20-2022 Patient encounter procedure JR Tushar Solano Work Phone: [facility] [place] Start: 06-11-2021 End: 06-11-2021 ambulatory Antonio Kim Other [employer] Other Start: 06-11-2021 Telephone encounter Antonio Cardenas ck [facility] Start: 04-12-2021 Office outpatient ne w 45 minutes Antonio Kim [facility] Start: 11-09-2020 End: 11-09-2020 Telephone encounter No One (Historical) Referring Physician Comment on above: External Referrals/r esources Start: 09-09-2019 End: 09-09-2019 Admission to day surgery [facility] Start: 08-12-2019 End: 08-12-2019 Admission to day surgery [facility] Procedures Date Procedure Procedure Detail Performing Clinician Start: 06-30-2024 AUDITORY FUNCTION TESTS Anabel Boyle [facility] Work Phone: Start: 10-23-2023 Follow-up visit Follow-up MARIAMA INGRAM Start: 10-15-2023 Assay of magnesium Nikolas Rodriguez BEHAVIORAL HEALTH CLINICIAN-DIRECTOR HARDWARE Work Phone: Start: 10-15-2023 Radiologic exam chest single view Kallie Roman MD Work Phone: Start: 10-15-2023 Basic metabolic panel calcium total Hazem Malas DO Work Phone: Start: 10-14-2023 Calcium ionized Parul Gallo Jeb BEHAVIORAL HEALTH CLINICIAN-DIRECTOR HARDWARE Work Phone: Start: 10-14-2023 Lipid panel Kristyn Avila MD Work Phone: Start: 10-14-2023 Calcium ionized Parul Holder Jeb BEHAVIORAL HEALTH CLINICIAN-DIRECTOR HARDWARE Work Phone: Start: 10-14-2023 Cardiac catheterization Obdulia Grove MD Work Phone: Start: 10-14-2023 Basic metabolic panel calcium total Parul Gallo Jeb BEHAVIORAL HEALTH CLINICIAN-DIRECTOR HARDWARE Work Phone: Start: 10-14-2023 Ecg routine ecg w/least 12 lds trcg only w/o i&r Parul Holder Jeb BEHAVIORAL HEALTH CLINICIAN-DIRECTOR HARDWARE Work Phone: Start: 10-13-2023 Calcium ionized Parul R Jeb BEHAVIORAL HEALTH CLINICIAN-DIRECTOR HARDWARE Work Phone: Start: 10-13-2023 Heparin assay Parul Holder Jeb BEHAVIORAL HEALTH CLINICIAN-DIRECTOR HARDWARE Work Phone: Start: 10-13-2023 Calcium ionized Hazem Malas DO Work Phone: Start: 10-13-2023 Echo tthrc r-t 2d w/wom-mode compl spec&colr d Parul John BEHAVIORAL HEALTH CLINICIAN-DIRECTOR HARDWARE Work Phone: Start: 10-13-2023 Potassium serum plasma/whole blood Jonathan Pizarro DO Work Phone: Start: 10-13-2023 Basic metabolic panel calcium total Parulchristy John BEHAVIORAL HEALTH CLINICIAN-DIRECTOR HARDWARE Work Phone: Start: 10-13-2023 Adult depression screening assessment Gabriella Viera RN Start: 10-13-2023 Basic metabolic panel calcium total Parulchristy John BEHAVIORAL HEALTH CLINICIAN-DIRECTOR HARDWARE Work Phone: Start: 10-13-2023 Ecg routine ecg w/least 12 lds trcg only w/o i&r Parul John BEHAVIORAL HEALTH CLINICIAN-DIRECTOR HARDWARE Work Phone: Start: 10-12-2023 Gluc bld gluc mntr dev cleared fda spec home use Jonathan Pizarro DO Work Phone: Start: 05-20-2022 Plain X-ray of right hand JR Tushar ricketts Work Phone: Start: 10-19-2020 History of coronary artery bypass grafting History of coronary artery bypass surgery Dwain SILVAM Work Phone: Start: 09-09-2019 Phacoemulsification of cataract with intraocular lens implantation Tushar Solano Start: 08-12-2019 Phacoemulsification of cataract with intraocular lens implantation Tushar Solano History of coronary artery bypass grafting Hx of CABG Mariama Ingram MD Work Phone: Plan of Treatment Date Care Activity Detail Author Start: 05-20-2032 DTaP,Tdap and Td Vac cines (2 - Td or Tdap) DTaP,Tdap and Td Vaccines (2 - Td or Tdap) [facility] Start: 05-20-2032 Tetanus vaccination TETANUS [facility] Start: 10-22-2024 Adult BMI Screening Adult BMI Screen ing [facility] Start: 10-22-2024 Tobacco Screening Tobacco Screening [facility] Start: 10-15-2024 Adult BMI Screening Adult BMI Screen ing [facility] Start: 04-01-2025 Depression Screening Depression Scre ening [facility] Start: 08-24-2024 End: 08-24-2024 Patient encounter procedure 08/24/2024 11:20 AM EST Office Visit [facility] [address] [place] [phone] Trung Flores MD [address] [place] [address] [place] [address] Arrived [facility] Comment on above: Arrived Start: 07-20-2024 End: 07-20-2024 Patient encounter procedure [facility] Comment on above: Arrived Start: 06-30-2024 End: 06-30-2024 Clinical Support 06/30/2024 8:00 AM EST Clinical Support [facility] [address] [place] [phone] Anabel Boyle, [facility] [address] [place], [place] [id number] Arrived [facility] Comment on above: Arrived Start: 05-19-2024 Adult BMI Screening Adult BMI Screen ing [facility] Start: 05-19-2024 Tobacco Screening Tobacco Screening [facility] Start: 03-14-2024 Influenza vaccination Influenza Vacc ine [facility] Start: 12-29-2023 End: 12-29-2023 Patient encounter procedure 12/29/2023 11:45 AM EDT Office Visit [facility] [address] [place] [address] [place] [address] Genet Small, [address] [facility] [address] [place] [address] [facility] Start: 12-16-2023 End: 12-16-2023 Patient encounter procedure [facility] Start: 11-24-2023 End: 11-24-2023 Patient encounter procedure 11/24/2023 2:00 PM EDT Office Visit [facility] [address] [place] [address] Mariama Ingram MD [address] [place] [facility] [place] [address] [facility] Start: 11-13-2023 End: 11-13-2023 Patient encounter procedure 11/13/2023 2:30 PM EDT Office Visit [facility] [address] [place] [address] Bernice Davis MD [address] [place] [address] [facility] Start: 11-07-2023 End: 11-07-2023 Patient encounter procedure 11/07/2023 9:00 AM EDT Office Visit [facility] [address] [place] [address] Anup Reed MD [address] [place] [address] [facility] Start: 10-23-2023 End: 10-23-2023 Patient encounter procedure 10/23/2023 3:15 PM EDT Office Visit [facility] [address] [place] [address] Mariama Ingram MD [address] [facility] [address] [place] [address] [facility] Start: 10-16-2023 End: 10-15-2024 US.doppler Extremity arteries - bilateral for physiologic artery study limited Vas art doppler lwr limited single Vascular Ultrasound Routine PAD (peripheral artery disease) ([facility]) Expected: 10/16/2023, Expires: 10/15/2024 [facility] Comment on above: Expected: 10/16/2023 , Expires: 10/15/2024 Start: 10-16-2023 End: 10-15-2024 US.doppler Lower extremity artery - bilateral Vas art duplex lwr bilateral Vascular Ultrasound Routine PAD (peripheral artery disease) ([facility]) Expected: 10/16/2023, Expires: 10/15/2024 Smita Work Phone: Comment on above: Expected: 10/16/2023 , Expires: 10/15/2024 Start: 10-16-2023 End: 10-16-2023 Patient encounter procedure 10/16/2023 1:30 PM EDT Office Visit [facility] [address] [place] [address] Genet Small, DO [address] [facility] [address] [place] [address] [facility] Start: 09-09-2023 End: 09-09-2023 Patient encounter procedure 09/09/2023 10:15 AM EST Office Visit [facility] [address] [place] [phone] Dwain Mills, DPM [address] [place] [address] [facility] Start: 08-21-2023 End: 08-21-2023 Patient encounter procedure 08/21/2023 2:00 PM EST [facility] [address] [place] [phone] Dwain Mills, DPM [address] [place] [address] [place] [address] [facility]rived [facility] Comment on above: Arrived Start: 08-06-2023 [facility] Start: 03-14-2023 Influenza vaccination A [facility] Start: 2018 Fall Risk Screening Fall Risk Screen ing [facility] Start: 2018 Pneumococcal vaccination PNEUM OCOCCAL VACCINE SERIES (2 - PCV) [facility] Start: 11-20-2003 Administration of varicella zoster vaccine Zoster (Shingles) Vaccine (1 of 2) [facility] Start: 11-20-2003 Zoster vaccine hzv l pool for subcutaneous use ZOSTER (SHINGLES) VACCINE (1 of 2) [facility] Start: 1998 Screening for malign ant neoplasm of colon COLORECTAL CANCER SCREENING DISCUSSION [facility] Start: 1993 Lipid panel LIPID SCREENING [facility] Start: 1993 Screening for malign ant neoplasm of breast MAMMOGRAM SCREENING DISCUSSION [facility] Start: 1974 Screening for malign ant neoplasm of cervix CERVICAL CANCER SCREENING DISCUSSION [facility] Start: 1972 Third diphtheria, te tanus and acellular pertussis (DTaP) vaccination TDAP (ADULT) [facility] Start: 11-20-1971 Adult BMI Follow Up Plan Adult BMI Follow Up Plan [facility] Start: 1965 Depression Screening Depression Scre ening [facility] Start: 05-22-1954 COVID-19 VACCINE (#1) COVID-19 VACCI NE (#1) [facility] Start: 1953 Hepatitis C screening HEPATITI S C VIRUS SCREENING [facility] Start: 1953 Medicare Annual Well ness Visit Medicare Annual Wellness Visit [facility] Start: 1953 Screening for osteoporosis DEXA SCAN DISCUSSION [facility] Start: 1953 Thyroid stimulating hormone measurement TSH [facility] Patient Education Atherectomy - Angioplasty of a Noncoronary Vessel Arteriogram (DC) [facility] Work Phone: Patient referral [facility] Radiography for bone length studies XR BONE LENGTH STUDY Imaging Routine Left knee pain, unspecified chronicity 06/25/2023 10:28 AM [facility] Work Phone: XR Knee - left 4 Views XR KNEE L EFT 4+ VIEWS Imaging Routine Left knee pain, unspecified chronicity 06/25/2023 10:28 AM [facility] Immunizations Immunization Date Immunization Notes Care Provider Joe silva 05-20-2022 tetanus and diphther ia toxoids, adsorbed, preservative free, for adult use (5 Lf of tetanus toxoid and 2 Lf of diphtheria toxoid) Virginia Marti Other [facility] 05-21-2018 Seasonal trivalent influenza vaccine, adjuvanted, preservative free Cheikh Rain [facility] 05-21-2018 influenza virus vaccine, unspecified formulation Norman Braga MD Work Phone: [facility] 09-12-2014 pneumococcal polysaccharide vaccine, 23 valent Jaclin Rain [facility] NEGATED: Highlighted row has not occurred!02-16-2023 pneumococcal conjugate vaccine, 13 valent Jaclin Rain [facility] Payers Date Payer Category Payer Medicare [id number] 2023 Self-pay [id number] 2022 Medicare [id number] 2022 Medicare (Managed Care) [id number]. [id number] 2020 Unknown [employer] [id number] 2020-Present Indemnity [id number] 2018 Medicare MEDICARE MEDICAR E A AND B [id number] 2018-Present [place] Medicare [id number] 1959 Medicare [id number] 1959 Unknown [id number] 1959 Unknown [id number] 1953 Unknown [id number] 2.16.840.1.571822.3.579.2. 593 1953 Unknown [id number] 2.16.840.1.192567.3.579.2. 593 1953 Unknown [id number] 2.16.840.1.932605.3.579.2. 593 1953 Unknown [id number] 2.16.840.1.293667.3.579.2. 983 1953 Unknown [id number] 2.16.840.1.180834.3.579.2. 983 1953 Unknown [id number] 2.16.840.1.701392.3.579.2. 128 1953 Unknown [id number] 2.16.840.1.722274.3.579.2. 128 1953 Unknown [id number] 2..840.1.572457.3.579.2. 128 1953 Unknown [id number] 2.16.840.1.411474.3.579.2. 128 1953 Unknown [id number] 2.840.1.797064.3.579.2. 125 1953 Unknown [id number] 2.840.1.740864.3.579.2. 1258 1953 Unknown [id number] 2.840.1.717447.3.579.2. 1258 1953 Unknown [id number] 2.16.840.1.347313.3.579.2. 1258 1953 Unknown [id number] 2.16.840.1.725228.3.579.2. 1258 1953 Unknown [id number] 2.16840.1.136661.3.579.2. 1259 Unknown [id number] Unknown [id number] [id number] Unknown [id number] 2.16840.1.680915.3.579.2. 531 Social History Date Type Detail Facility Start: 09-09-2019 End: 04-08-2023 Tobacco smoking status NHIS Never smoked tobacco (finding) [facility] Start: 1955 Sex Assigned At Female F [facility] Start: 1955 Sex Assigned At [facility] on file [facility] Start: 06-25-2023 End: 08-24-2024 Sex Assigned At [facility] [employer] Other Start: 04-08-2023 End: 06-25-2023 Tobacco use and exposure Smokeless tobacco non-user [facility] Start: 06-25-2023 End: 08-24-2024 History of Social function [facility] [employer] [facility] Start: 08-07-2023 End: 08-24-2024 Alcohol intake Lifetime non-drinker (finding) [facility] Start: 05-19-2023 End: 10-24-2023 Alcohol intake Current non-drinker of alcohol (finding) [facility] Unknown [facility] Has the electric, [employer], oil, or water company threatened to shut off services in your home in past 12Mo No [facility] How often to you hav e a drink containing alcohol? Never [facility] Medical Equipment Procedure Code Equipment Code Equipment Origin al Text Equipment Identifier Dates Phacoemulsification of cataract with intraocular lens implantation ()[id number] FDA Start: 08-12-2019 Phacoemulsification of cataract with intraocular lens implantation Posterior-chamber intraocular lens, pseudophakic [id number] FDA Start: 09-09-2019 Loop Recorder Kairna [facility] - [id number] - [id number] Start: 05-24-2016 System Cor Stnt 3.0mm X 12mm 145cm Xience [employer] Harry - [id number] ()[id number] FDA Start: 02-15-2023 Goals Date Patient Goal Desired Activity /State Clinical Notes 11-09-2020 to 08-24-2024 Trung Flores MD - 08/24/2024 11:20 AM Alex [place] MD - 07/20/2024 9:10 AM Lashonda Boyle, CCC-A - 06/30/2024 8:00 AM Brianna Ingram MD - 10/23/2023 3:15 PM EDT Note Date & Type Note Facility 08-24-2024 History of Present illness Narrative Subjective Patient ID: Ashvin Rene is a 68 y.o. female who presents for Hearing Loss (Follow up CT [facility] 08/12/24) CT temporal bone reviewed and there are symmetric IACs and no large AN. Family History Problem Relation Name Age of Onset Heart disease Mother Hypertension Mother Diabetes Mother Heart disease Father Active Ambulatory Problems Diagnosis Date Noted Cerebrovascular accident (CVA) ([facility]) 08/21/2023 Chronic kidney disease 08/21/2023 Essential hypertension ([facility]) 10/19/2020 History of coronary artery bypass surgery 10/19/2020 Presence of cardiac pacemaker 08/21/2023 Abnormal stress test 10/19/2020 Acquired hypothyroidism ([facility]) 02/16/2024 Bicuspid aortic valve 10/10/2021 Cardiomyopathy ([facility]) 01/27/2023 Chronic HFrEF (heart failure with reduced ejection fraction) ([facility]) 10/23/2023 Clostridioides difficile infection 02/16/2024 Atherosclerosis of coronary artery bypass graft ([facility]) 02/16/2024 Decompensated heart failure ([facility]) 10/12/2023 Fatigue 11/24/2020 Fracture of distal end of femur ([facility]) 12/02/2018 Hyperlipidemia ([facility]) 10/19/2020 Hypotension 01/27/2023 Nausea and vomiting 02/16/2024 Nonrheumatic aortic valve insufficiency 01/01/2023 NSTEMI (non-ST elevated myocardial infarction) ([facility]) 10/12/2023 Pain in femur 12/02/2018 Paronychia of finger 06/16/2018 PFO (patent foramen ovale) 10/10/2021 Pure hypercholesterolemia ([facility]) 11/24/2020 Shortness of breath 01/27/2023 Status post placement of implantable loop recorder 06/16/2017 Stenosis of left carotid artery 01/01/2023 Type 2 diabetes mellitus without complication, without long-term current use of insulin ([facility]) 11/24/2020 Unstable angina ([facility]) 02/14/2023 Venous hypertension of lower extremity 02/16/2024 Conductive hearing loss of right ear with restricted hearing of left ear 02/17/2024 Bilateral impacted cerumen 02/17/2024 Closed displaced fracture of left pubis ([facility]) 08/24/2024 Fall 08/24/2024 Fall on same level from slipping, tripping, or stumbling 08/24/2024 Closed fracture of left inferior pubic ramus ([facility]) 08/24/2024 Closed fracture of right hip ([facility]) 08/24/2024 Injury of right shoulder 08/24/2024 Pain in left hip 08/24/2024 Resolved Ambulatory Problems Diagnosis Date Noted No Resolved Ambulatory Problems Past Medical History: Diagnosis Date Acid reflux Diabetes mellitus ([facility]) Hypertension ([facility]) Neuropathy Past Surgical History: Procedure Laterality Date ANGIOPLASTY 2007 with stent; APPENDECTOMY 1978 CARDIAC SURGERY 2014 Double by-pass CATARACT EXTRACTION 1997 FEMUR FRACTURE SURGERY Bilateral 2019 GASTRIC BYPASS 2002 HYSTERECTOMY 1980 ORIF HIP FRACTURE Left 2011 Allergies Allergen Reactions Aspirin-Dipyridamole Er Other Cefadroxil Other duricef Dipyridamole Other Reaction(s): Unknown Reaction Fenofibrate Other tricor Fluvoxamine Other luvox Metoprolol Patient feels like she is dying Nefazodone Other serzone Niacin Other Other reaction(s): Intolerance-unknown Simvastatin Other Atorvastatin Hives and Rash lipitor Codeine Hives, Hallucinations and Rash Fluconazole Rash Current Outpatient Medications on File Prior to Visit Medication Sig Dispense Refill acetaminophen (Tylenol) 500 MG tablet Take 500 mg by mouth every 8 (eight) hours if needed. Artificial Tear Solution (Soothe XP) solution Administer 1 application into affected eye(s) in the morning and 1 application at noon and 1 application in the evening and 1 application before bedtime. Ascorbic Acid (vitamin C) 1000 MG tablet Take 1,000 mg by mouth in the morning. aspirin 81 MG EC tablet Take 81 mg by mouth in the morning. calcium citrate (Calcitrate) 950 (200 Ca) MG tablet Take 250 mg by mouth in the morning. cholecalciferol (Vitamin D-3) 25 MCG tablet Take 12.5 mcg by mouth in the morning and 12.5 mcg in the evening and 12.5 mcg before bedtime. clopidogrel (Plavix) 75 MG tablet Take 75 mg by mouth in the morning. cyanocobalamin (Vitamin B-12) 1000 MCG tablet Take 1,000 mcg by mouth in the morning. DULoxetine (Cymbalta) [address] capsule Take 30 mg by mouth at bedtime. Do not crush or chew. famotidine (Pepcid) 40 MG tablet Take 40 mg by mouth in the morning. ferrous sulfate 325 (65 Fe) MG EC tablet Take 325 mg by mouth in the morning. Take with meals. Do not crush, chew, or split. . liothyronine (Cytomel) 5 MCG tablet Take 10 mcg by mouth in the morning. midodrine (Proamatine) 10 MG tablet Take 10 mg by mouth in the morning and 10 mg in the evening and 10 mg before bedtime. montelukast (Singulair) 10 MG tablet Take 10 mg by mouth in the morning. Multiple Vitamin (multivitamin) tablet Take 1 tablet by mouth in the morning. Multiple Vitamins-Minerals (Hair Skin and Nails Formula) tablet Take 1 tablet by mouth in the morning. nitroglycerin (Nitrostat) 0.[address] 0.4 mg under the tongue every 5 (five) minutes if needed for chest pain. omeprazole (PriLOSEC) [address] capsule Take 40 mg by mouth in the morning. Take before meals. Do not crush or chew. . ondansetron ODT (Zofran-ODT) 4 MG disintegrating tablet Take 4 mg by mouth every 8 (eight) hours if needed for nausea or vomiting. pantoprazole (ProtoNix) 40 MG EC tablet Take 40 mg by mouth in the morning. pregabalin (Lyrica) 50 MG capsule Take 50 mg by mouth in the morning and 50 mg before bedtime. ranolazine (Ranexa) 500 MG 12 hr tablet Take 500 mg by mouth in the morning and 500 mg before bedtime. Do not crush, chew, or split. . Rimegepant Sulfate (Nurtec) 75 MG tablet dispersible Take 75 mg by mouth 1 (one) time if needed (take as directed). sucralfate (Carafate) 1 g tablet Take 1 g by mouth in the morning and 1 g at noon. torsemide (Demadex) 20 MG tablet Take 20 mg by mouth in the morning. TRAZODONE HCL ER PO Take 150 mg by mouth at bedtime. Zoledronic Acid (RECLAST IV) Infuse into a venous catheter yearly [DISCONTINUED] spironolactone (Aldactone) 25 MG tablet Take 12.5 mg by mouth in the morning. No current facility-administered medications on file prior to visit. Objective Last Recorded Vitals Vitals: 08/24/24 1114 BP: 128/60 Pulse: 101 ENT Physical Exam Constitutional Appearance: patient appears well-developed, well-nourished and well-groomed, Communication/Voice: communication appropriate for developmental age; vocal quality normal; Assessment/Plan Diagnoses and all orders for this visit: Asymmetric SNHL (sensorineural hearing loss) Though not an optimal study, CT was reassuring. Pt already has hearing aids. documented in this encounter [facility] 07-20-2024 History of Present illness Narrative Subjective Patient ID: Ashvin Rene is a 68 y.o. female who presents for Hearing Loss (Follow up audio 06/30/24) Audio shows asymmetric RT SNHL and normal tymps alok. Family History Problem Relation Name Age of Onset Heart disease Mother Hypertension Mother Diabetes Mother Heart disease Father Active Ambulatory Problems Diagnosis Date Noted Cerebrovascular accident (CVA) ([facility]) 08/21/2023 Chronic kidney disease 08/21/2023 Essential hypertension ([facility]) 10/19/2020 History of coronary artery bypass surgery 10/19/2020 Presence of cardiac pacemaker 08/21/2023 Abnormal stress test 10/19/2020 Acquired hypothyroidism ([facility]) 02/16/2024 Bicuspid aortic valve 10/10/2021 Cardiomyopathy ([facility]) 01/27/2023 Chronic HFrEF (heart failure with reduced ejection fraction) ([facility]) 10/23/2023 Clostridioides difficile infection 02/16/2024 Atherosclerosis of coronary artery bypass graft [place] 02/16/2024 Decompensated heart failure ([facility]) 10/12/2023 Fatigue 11/24/2020 Fracture of distal end of femur ([facility]) 12/02/2018 Hyperlipidemia ([facility]) 10/19/2020 Hypotension 01/27/2023 Nausea and vomiting 02/16/2024 Nonrheumatic aortic valve insufficiency 01/01/2023 NSTEMI (non-ST elevated myocardial infarction) ([facility]) 10/12/2023 Pain in femur 12/02/2018 Paronychia of finger 06/16/2018 PFO (patent foramen ovale) 10/10/2021 Pure hypercholesterolemia ([facility]) 11/24/2020 Shortness of breath 01/27/2023 Status post placement of implantable loop recorder 06/16/2017 Stenosis of left carotid artery 01/01/2023 Type 2 diabetes mellitus without complication, without long-term current use of insulin ([facility] 11/24/2020 Unstable angina ([facility]) 02/14/2023 Venous hypertension of lower extremity 02/16/2024 Conductive hearing loss of right ear with restricted hearing of left ear 02/17/2024 Bilateral impacted cerumen 02/17/2024 Resolved Ambulatory Problems Diagnosis Date Noted No Resolved Ambulatory Problems Past Medical History: Diagnosis Date Acid reflux Diabetes mellitus ([facility]) Hypertension ([facility]) Neuropathy Past Surgical History: Procedure Laterality Date ANGIOPLASTY 2007 with stent; APPENDECTOMY 1978 CARDIAC SURGERY 2014 Double by-pass CATARACT EXTRACTION 1997 FEMUR FRACTURE SURGERY Bilateral 2019 GASTRIC BYPASS 2002 HYSTERECTOMY 1980 ORIF HIP FRACTURE Left 2011 Allergies Allergen Reactions Aspirin-Dipyridamole Er Other Cefadroxil Other duricef Dipyridamole Other Reaction(s): Unknown Reaction Fenofibrate Other tricor Fluvoxamine Other luvox Metoprolol Patient feels like she is dying Nefazodone Other serzone Niacin Other Other reaction(s): Intolerance-unknown Simvastatin Other Atorvastatin Hives and Rash lipitor Codeine Hives, Hallucinations and Rash Fluconazole Rash Current Outpatient Medications on File Prior to Visit Medication Sig Dispense Refill acetaminophen (Tylenol) 500 MG tablet Take 500 mg by mouth every 8 (eight) hours if needed. Artificial Tear Solution (Soothe XP) solution Administer 1 application into affected eye(s) in the morning and 1 application at noon and 1 application in the evening and 1 application before bedtime. Ascorbic Acid (vitamin C) 1000 MG tablet Take 1,000 mg by mouth in the morning. aspirin 81 MG EC tablet Take 81 mg by mouth in the morning. calcium citrate (Calcitrate) 950 (200 Ca) MG tablet Take 250 mg by mouth in the morning. cholecalciferol (Vitamin D-3) 25 MCG tablet Take 12.5 mcg by mouth in the morning and 12.5 mcg in the evening and 12.5 mcg before bedtime. clopidogrel (Plavix) 75 MG tablet Take 75 mg by mouth in the morning. cyanocobalamin (Vitamin B-12) 1000 MCG tablet Take 1,000 mcg by mouth in the morning. DULoxetine (Cymbalta) [address] capsule Take 30 mg by mouth at bedtime. Do not crush or chew. famotidine (Pepcid) 40 MG tablet Take 40 mg by mouth in the morning. ferrous sulfate 325 (65 Fe) MG EC tablet Take 325 mg by mouth in the morning. Take with meals. Do not crush, chew, or split. . liothyronine (Cytomel) 5 MCG tablet Take 10 mcg by mouth in the morning. midodrine (Proamatine) 10 MG tablet Take 10 mg by mouth in the morning and 10 mg in the evening and 10 mg before bedtime. montelukast (Singulair) 10 MG tablet Take 10 mg by mouth in the morning. Multiple Vitamin (multivitamin) tablet Take 1 tablet by mouth in the morning. Multiple Vitamins-Minerals (Hair Skin and Nails Formula) tablet Take 1 tablet by mouth in the morning. nitroglycerin (Nitrostat) 0.[address] 0.4 mg under the tongue every 5 (five) minutes if needed for chest pain. omeprazole (PriLOSEC) [address] capsule Take 40 mg by mouth in the morning. Take before meals. Do not crush or chew. . ondansetron ODT (Zofran-ODT) 4 MG disintegrating tablet Take 4 mg by mouth every 8 (eight) hours if needed for nausea or vomiting. pantoprazole (ProtoNix) 40 MG EC tablet Take 40 mg by mouth in the morning. pregabalin (Lyrica) 50 MG capsule Take 50 mg by mouth in the morning and 50 mg before bedtime. ranolazine (Ranexa) 500 MG 12 hr tablet Take 500 mg by mouth in the morning and 500 mg before bedtime. Do not crush, chew, or split. . Rimegepant Sulfate (Nurtec) 75 MG tablet dispersible Take 75 mg by mouth 1 (one) time if needed (take as directed). spironolactone (Aldactone) 25 MG tablet Take 12.5 mg by mouth in the morning. sucralfate (Carafate) 1 g tablet Take 1 g by mouth in the morning and 1 g at noon. torsemide (Demadex) 20 MG tablet Take 20 mg by mouth in the morning. TRAZODONE HCL ER PO Take 150 mg by mouth at bedtime. Zoledronic Acid (RECLAST IV) Infuse into a venous catheter yearly [DISCONTINUED] doxycycline (Monodox) 100 MG capsule Take 100 mg by mouth in the morning and 100 mg before bedtime. [DISCONTINUED] GENERIC COMPOUNDING MEDICATION Apply topically 3 (three) times a day NIFED PHN [DISCONTINUED] rosuvastatin (Crestor) 20 MG tablet Take 20 mg by mouth in the morning. No current facility-administered medications on file prior to visit. Objective Last Recorded Vitals Vitals: 07/20/24 0905 BP: 146/71 Pulse: 71 ENT Physical Exam Constitutional Appearance: patient appears well-developed, well-nourished and well-groomed, Communication/Voice: communication appropriate for developmental age; vocal quality normal; Assessment/Plan Diagnoses and all orders for this visit: Asymmetric SNHL (sensorineural hearing loss) Asym SNHL. Recommend CT temp bone with contrast (cannot have MRI) to ensure there is no AN. Clearly needs RAINEY which help her considerably. documented in this encounter [facility] 06-30-2024 History of Present illness Narrative History: Pt was referred to ENT because of decreased hearing both ears. Pt also reports periodic tinnitus both ears. History is positive for noise exposure. Pt denies frequent ear infections. Pt wears [employer] SANDRA aids she received from a family member. The aids are programmed to her hearing loss. Otoscopic Exam: Ear canal clear and TM intact AU Pure Tone Audiometry Right Ear: Moderate to severe sensorineural hearing loss Left Ear: Mild to severe sensorineural hearing loss Speech Audiometry Right SRT = 55 dB and word discrimination score at 80 dBHL (masked) = 84% Left SRT = 55 dB and word discrimination score at 85 dBHL = 84% Tympanometry Right Ear: Type A tympanogram Left Ear: Type A tympanogram documented in this encounter [facility] 10-23-2023 History of Present illness Narrative Asvhin Rene Date of visit: 10/23/2023 Date of : 1955 Age: 67 y.o. Patient Active Problem List Diagnosis Status post placement of implantable loop recorder Hyperlipidemia Essential hypertension Chronic coronary artery disease Hx of CABG Abnormal stress test Atherosclerosis of coronary artery bypass graft Bicuspid aortic valve PFO (patent foramen ovale) Nonrheumatic aortic valve insufficiency Stenosis of left carotid artery Shortness of breath Cardiomyopathy ([facility]) Hypotension Unstable angina ([facility]) Decompensated heart failure ([facility]) NSTEMI (non-ST elevated myocardial infarction) ([facility]) Chronic HFrEF (heart failure with reduced ejection fraction) ([facility]) Allergies Allergen Reactions Metoprolol Other (See Comments) Patient feels like she is dying . I couldn't move, felt like I was having a stroke . Cefadroxil duricef Fenofibrate Micronized tricor Fluvoxamine luvox Nefazodone serzone Niacin Other reaction(s): Intolerance-unknown Atorvastatin Hives and Rash Codeine Hives, Rash and Hallucinations Current Outpatient Medications Medication Sig Dispense Refill ascorbic acid, vitamin C, (VITAMIN C) 1000 mg tablet Take 1 tablet (1,000 mg total) by mouth in the morning. aspirin 81 mg chewable tablet Chew 1 tablet (81 mg total) and swallow in the morning. 30 tablet 11 azelastine (OPTIVAR) 0.05 % ophthalmic solution 1 drop in the morning and 1 drop before bedtime. calcium carbonate (CALCIUM 500 ORAL) Take 500 mg by mouth daily. calcium citrate 250 mg calcium tablet TAKE 2 TABLETS BY MOUTH EVERY DAY AT NOON cholecalciferol, vitamin D3, 125 mcg (5,000 unit) tablet,disintegrating 125 mcg daily. clopidogreL (PLAVIX) 75 mg tablet Take 1 tablet (75 mg total) by mouth in the morning. 30 tablet 11 collagenase (SANTYL) ointment Apply 1 Application topically in the morning. 15 g 0 cyanocobalamin (vitamin B-12) 1000 MCG tablet Take 1 tablet (1,000 mcg total) by mouth in the morning. dapagliflozin propanediol (FARXIGA) 10 mg tablet Take 1 tablet (10 mg total) by mouth in the morning. 60 tablet 2 DULoxetine (CYMBALTA) 30 mg capsule Take 1 capsule (30 mg total) by mouth in the morning. famotidine (PEPCID) 20 mg tablet Take 2 tablets (40 mg total) by mouth in the evening. ferrous sulfate 325 (65 FE) mg tablet Take 1 tablet (325 mg total) by mouth daily with breakfast. ipratropium (ATROVENT) 21 mcg (0.03 %) nasal spray as needed. liothyronine (CYTOMEL) 5 MCG tablet Take 2 tablets (10 mcg total) by mouth in the morning. midodrine (PROAMATINE) 10 mg tablet Take 1 tablet (10 mg total) by mouth 3 (three) times a day. 270 tablet 3 montelukast (SINGULAIR) 10 mg tablet Take 1 tablet (10 mg total) by mouth in the morning. multivitamin (THERAGRAN) tablet Take 1 tablet by mouth in the morning. nitroglycerin (NITROSTAT) 0.[address] 1 tablet (0.4 mg total) under the tongue every 5 (five) minutes as needed for chest pain. 25 tablet 0 ondansetron (ZOFRAN) 4 mg tablet Take 1 tablet (4 mg total) by mouth every 8 (eight) hours as needed for nausea or vomiting. pantoprazole (PROTONIX) 40 mg EC tablet Take 1 tablet (40 mg total) by mouth in the morning. 30 MINS BEFORE BREAKFAST. pregabalin (LYRICA) 50 mg capsule Take 1 capsule (50 mg total) by mouth in the morning and 1 capsule (50 mg total) before bedtime. ranolazine (RANEXA) 1,000 mg 12 hr tablet Take 1 tablet (1,000 mg total) by mouth in the morning and 1 tablet (1,000 mg total) before bedtime. 180 tablet 3 rimegepant (NURTEC ODT) 75 mg tablet,disintegrating Dissolve 75 mg on tongue in the morning. prn. rosuvastatin (CRESTOR) 20 mg tablet Take 1 tablet (20 mg total) by mouth in the morning. sucralfate (CARAFATE) 1 gram tablet Take 1 tablet (1 g total) by mouth in the morning and at bedtime. traZODone (DESYREL) 150 mg tablet Take 150 mg by mouth nightly. sacubitriL-valsartan (ENTRESTO) 24-26 mg tablet Take 0.5 tablets by mouth in the morning and 0.5 tablets before bedtime. 60 tablet 2 spironolactone (ALDACTONE) 25 mg tablet Take 0.5 tablets (12.5 mg total) by mouth in the morning. 60 tablet 2 torsemide (DEMADEX) 20 mg tablet Take 0.5 tablets (10 mg total) by mouth daily. prn 45 tablet 3 No current facility-administered medications for this visit. Chief Complaint Patient presents with Follow-up EARLY FOR SOB Shortness of Breath Dizziness History of Present Illness Ashvin was seen in the [place] office for follow-up from recent hospitalization at [facility]. At that time patient was admitted with an NSTEMI subsequently underwent cardiac catheterization that revealed a an occluded bypass graft which was new. She was also found to have severe left ventricular systolic dysfunction with estimated ejection fraction of 20-25% and she was placed on significant guideline directed medical therapy that was all new to her. Since being at home her blood pressures have been running low in the 70-90 range requiring midodrine 3 times a day. Patient states that she feels awful. She is unable to function. She thinks that her shortness of breath is overall is improved and she has not experiencing any chest pain. She states that she has no energy she feels dizzy lightheaded and has felt presyncopal. She has not had any actual syncope. She thinks that her lower extremity edema is improved. She feels like she is on too much medication. Past Medical History: Diagnosis Date Angina pectoris ([facility]) Atherosclerosis of coronary artery bypass graft Atherosclerotic heart disease Coronary angioplasty status Coronary artery disease CVA (cerebral vascular accident) ([facility]) Decompensated heart failure ([facility]) 10/13/2023 Dyspnea Hyperlipidemia Hypertension Hypotension Other chest pain Stroke ([facility]) No data recorded No data recorded No data recorded Past Surgical History: Procedure Laterality Date CARDIAC CATHETERIZATION Cardiac catheterization N/A 02/15/2023 Performed by Star Espinosa MD at [facility] CARD[facility]AC CATH LABS Cardiac catheterization - LV cors w/graft check N/A 10/25/2020 Performed by Alexi Freeman MD at [facility] CARDIAC CATH [facility]S Coronary angiogram and graft/[place] N/A 02/15/2023 Performed by Star Espinosa MD at [facility] CARDIAC CATH LABS Coronary angiogram and left ventricular gram/pressure + graft/[place] N/A 10/25/2020 Performed by Alexi Freeman MD at [facility] CARDIAC CATH LABS Coronary angiogram and left ventricular gram/pressure + graft/[place] N/A 06/18/2016 Performed by Alexi Freeman MD at [facility] CARDIAC CATH LABS Coronary angiogram/lv/graft and right heart N/A 10/14/2023 Performed by Alexi Freeman MD at [facility] CARDIAC CATH LABS CORONARY ANGIOPLASTY 12/08/2020 orbital atherectomy and 2 HARRY to prox and distal Circ, at [facility] per Dr. Madhav Ugalde CORONARY ARTERY BYPASS GRAFT 09/08/2014 HYSTERECTOMY INSERTION LOOP RECORDER 05/24/2016 Percutaneous coronary angioplasty left circumflex N/A 02/15/2023 Performed by Star Espinosa MD at [facility] CARDIAC CATH LABS Stent drug-eluting left circumflex N/A 02/15/2023 Performed by Star Espinosa MD at [facility] CARDIAC CATH LABS Family History Problem Relation Age of Onset Arrhythmia Mother Coronary artery disease Mother Heart attack Mother Heart attack Father Social History Socioeconomic History Marital status: Spouse name: Not on file Number of children: Not on file Years of education: Not on file Highest education level: Not on file Occupational History Not on file Tobacco Use Smoking status: Never Smokeless tobacco: Never Vaping Use Vaping status: Never Used Substance and Sexual Activity Alcohol use: No Drug use: No Sexual activity: Not on file Other Topics Concern Caffeine Use Yes Social History Narrative Not on file Social Determinants of Health Financial Resource Strain: Not on file Food Insecurity: No Food Insecurity (10/23/2023) Hunger Screening Food Insecurity - Worry: Never True Food Insecurity - Inability: Never True Transportation Needs: No Transportation Needs (10/13/2023) PRAPARE - Transportation Lack of Transportation (Medical): No Lack of Transportation (Non-Medical): No Physical Activity: Not on file Stress: Not on file Social Connections: Not on file Interpersonal Safety: Not At Risk (10/13/2023) Humiliation, Afraid, Rape, and Kick questionnaire Fear of Current or Ex-Partner: No Emotionally Abused: No Physically Abused: No Sexually Abused: No Housing Instability: Low Risk (10/13/2023) Housing Instability Housing Instability: No Review of Systems Review of Systems Constitutional: Positive for malaise/fatigue. HENT: Negative. Eyes: Negative. Respiratory: Positive for cough and shortness of breath. Hematologic/Lymphatic: Bruises/bleeds easily. Skin: Negative. Musculoskeletal: Positive for muscle weakness. Gastrointestinal: Negative. Neurological: Positive for dizziness, light-headedness and loss of balance. Psychiatric/Behavioral: Negative. Allergic/Immunologic: Negative. CARDIOVASCULAR: Please review HPI. Physical Examination General appearance: Alert, oriented and cooperative. In no acute distress. Skin: Warm and dry to touch. Head: Normocephalic, Neck: No JVD, No carotid bruit. Respiratory: Clear to auscultation bilaterally Cardiovascular: RRR with normal S1 and S2 with no murmurs. Musculoskeletal: No peripheral edema. Neurologic: Nonfocal VITAL SIGNS: Ht 157.5 cm (5' 2 ) Wt 62.6 kg (138 lb) SpO2 97% BMI 25.24 kg/m Orders Placed or Reconciled This Encounter Medications sacubitriL-valsartan (ENTRESTO) 24-26 mg tablet Sig: Take 0.5 tablets by mouth in the morning and 0.5 tablets before bedtime. Dispense: 60 tablet Refill: 2 spironolactone (ALDACTONE) 25 mg tablet Sig: Take 0.5 tablets (12.5 mg total) by mouth in the morning. Dispense: 60 tablet Refill: 2 torsemide (DEMADEX) 20 mg tablet Sig: Take 0.5 tablets (10 mg total) by mouth daily. prn Dispense: 45 tablet Refill: 3 Medications Discontinued During This Encounter Medication Reason ibandronate (BONIVA) 150 mg tablet Therapy completed bisoprolol (ZEBETA) 5 mg tablet torsemide (DEMADEX) 20 mg tablet Reorder spironolactone (ALDACTONE) 25 mg tablet sacubitriL-valsartan (ENTRESTO) 24-26 mg tablet Reorder IMPRESSIONS/PLAN 1. Chronic coronary artery disease 2. Ischemic cardiomyopathy 3. Hx of CABG 4. Chronic HFrEF (heart failure with reduced ejection fraction) ([facility]) Patient is not experiencing any anginal symptoms at this time and appears to have recovered from her NSTEMI fairly well. Unfortunately she was placed on a lot of guideline directed medical therapy for ischemic cardiomyopathy and chronic heart failure with reduced ejection fraction. She has not tolerating these doses of medications and has been requiring midodrine to support her blood pressure. At this time I have recommended that she discontinue taking Zebeta and I would hold all beta-blockers at this time as they seem to be making her feel very tired and fatigued. I would decrease her Entresto dose to a half a tablet twice a day her torsemide down to 10 mg a day and spironolactone down to 12.5 mg daily. She should remain on Farxiga at the current dosage. She is currently taking midodrine 5 mg 3 times a day and I advised her that we would like to slowly wean her off of this if we can. I told her that ideally we would like to have her systolic blood pressure in the 90-105 range as long as she is asymptomatic. I have scheduled her for follow-up with me in the office in 4-5 weeks. Total time spent on this patient was 32 minutes: Preparing to see the patient(e.g. review of tests and prior office/hospital notes) Obtaining and/or reviewing separately obtained history Performing and medical specialty appropriate examination and/or evaluation Counseling and educating the patient/family/caregiver Ordering medications,tests or procedures TODAYS ORDERS No orders of the defined types were placed in this encounter. FOLLOW UP Return in about 4 weeks (around 11/20/2023). PCP: TUSHAR SOLANO JR, DO Referring Physician: Tushar Solano Jr., DO [address] [place] [address] documented in this encounter [facility] 10-21-2023 Miscellaneous Notes P/c from patient calling to report hypotension and symptoms. Pt is post 10/14/23 cath and states since starting Bisoprolol 5mg daily, Entresto 24-26 BID and Farxiga 10 mg daily she has noticed being hypotensive. Pt also has been taking ranolazine 1000 mg BID, spironolactone 25 mg daily, torsemide 20 mg daily and Midodrine 5 mg TID. Pt reports feeling very lightheaded and dizzy and felt like she was going to pass out around 1030 am. She took her BP which was 80/60 HR 90. Pt states she took her meds around 9:15am. Pt has an appt scheduled for 11/07/23 but was offered sooner appt 10/23/23. Pt advised to continue to check BP/HRs and report to ER for worsening symptoms. Increase midodrine to 10 mg p.o. t.i.d. Link Cutter called pt to update on MBEs recommendations. Pt will take midodrine 10 mg TID and continue to monitor BPs/HRs and fuas 10/23/23. signed documented in this encounter [facility] 10-21-2023 Telephone encounter Note P/c from patient calling to report hypotension and symptoms. Pt is post 10/14/23 cath and states since starting Bisoprolol 5mg daily, Entresto 24-26 BID and Farxiga 10 mg daily she has noticed being hypotensive. Pt also has been taking ranolazine 1000 mg BID, spironolactone 25 mg daily, torsemide 20 mg daily and Midodrine 5 mg TID. Pt reports feeling very lightheaded and dizzy and felt like she was going to pass out around 1030 am. She took her BP which was 80/60 HR 90. Pt states she took her meds around 9:15am. Pt has an appt scheduled for 11/07/23 but was offered sooner appt 10/23/23. Pt advised to continue to check BP/HRs and report to ER for worsening symptoms. [facility] 10-21-2023 Telephone encounter Note Increase midodrine to 10 mg p.o. t.i.d. [facility] 10-21-2023 Telephone encounter Note Link Cutter called pt to update on MBEs recommendations. Pt will take midodrine 10 mg TID and continue to monitor BPs/HRs and fuas 10/23/23. [facility] 10-21-2023 Telephone encounter Note signed T [facility] 10-16-2023 History of Present illness Narrative Images from the original note were not included. Vascular Surgery Office Note Chief Complaint Chief Complaint Patient presents with Follow-up 6 month follow up; testing prior [facility]AS HISTORY OF PRESENT ILLNESS: Ashvin Rene is a 67 y.o. White or female w/ h/o CAD (CABG), CHF, asymptomatic bilateral carotid artery stenosis and PAD w/ R foot wound. Pt was initially seen in office 01/23/23 for f/u evaluation s/p carotid US in May 2022. H/o previous CVA in 2015 w/ subsequent mini-strokes w/ symptoms of L>R UE weakness and fatigue that lasted for a day. Denies h/o sudden vision loss. Repeat carotid duplex ordered. 02/13/23: c/o chest pain. Cards recommended cath but insurance denied requesting further testing prior. Pt encouraged to go to ED w/ any acute episodes of chest pain. C/o fatigue and weakness. ED w/ chest pain --> 02/15/23: cath w/ angioplasty and stenting L circumflex 05/19/23 (Dr. Veras): concern for RLE arterial insufficiency during previous cardiac cath. FRANCIS/PVR ordered Pt states since she was last seen in office she has had a lot going on. Went to ED in Feb w/ c/o chest pain. Underwent cardiac cath and had intervention. F/U w/ Dr. Veras due to concerns for PAD. Pt states she also had a foot wound at that time. Pt was following w/ podiatry and was referred to vascular surgeon in [place] due to progressive R foot wound. Ultimately had angio w/ intervention (per pt balloon angioplasty w/ no stents. Toe wound now almost completely healed. Admitted 10/11 - 10/15/23 w/ nausea and vomiting. Trops elevated. Cardiac cath 10/14/23 - occluded SVG to RCA. Treated w/ medical mgmt. Pt states since angio w/ peripheral intervention she has not had any f/u and/or LE arterial testing. Previous notes and detailed chart review completed including review of any/all relevant notes from other providers. ALLERGIES: Allergies Allergen Reactions Metoprolol Other (See Comments) Patient feels like she is dying . I couldn't move, felt like I was having a stroke . Cefadroxil duricef Fenofibrate Micronized tricor Fluvoxamine luvox Nefazodone serzone Niacin Other reaction(s): Intolerance-unknown Atorvastatin Hives and Rash Codeine Hives, Rash and Hallucinations HOME MEDICATIONS: Medication List Accurate as of October 16, 2023 11:59 PM. If you have any questions, ask your nurse or doctor. CONTINUE taking these medications Instructions Last Dose [...] the morning and 1 drop before bedtime. bisoprolol 5 mg tablet Commonly known as: ZEBETA Take 1 tablet (5 mg total) by mouth in the morning. CALCIUM 500 ORAL Take 500 mg by mouth daily. calcium citrate 250 mg calcium tablet TAKE 2 TABLETS BY MOUTH EVERY DAY AT NOON cholecalciferol (vitamin D3) 125 mcg (5,000 unit) tablet,disintegrating 125 mcg daily. clopidogreL 75 mg tablet Commonly known as: PLAVIX Take 1 tablet (75 mg total) by mouth in the morning. collagenase ointment Commonly known as: SANTYL Apply 1 Application topically in the morning. dapagliflozin propanediol 10 mg tablet Commonly known as: FARXIGA Take 1 tablet (10 mg total) by [...] mg total) by mouth daily with breakfast. ipratropium 21 mcg (0.03 %) nasal spray [...] 24-26 mg tablet Commonly known as: ENTRESTO Take 1 tablet by mouth in the morning and 1 tablet before bedtime. spironolactone 25 mg tablet Commonly known as: ALDACTONE Take 1 tablet (25 mg total) by [...] mcg total) by mouth in the morning. PHYSICAL EXAMINATION: Physical Exam Vitals and nursing note reviewed. Constitutional: Appearance: Normal appearance. HENT: Head: Normocephalic and atraumatic. Pulmonary: Effort: Pulmonary effort is normal. Musculoskeletal: General: Normal range of motion. Comments: Moving all ext equally Skin: General: Skin is warm and dry. Neurological: General: No focal deficit present. Mental Status: She is alert and oriented to person, place, and time. Psychiatric: Attention and Perception: Attention normal. Mood and Affect: Mood normal. Speech: Speech normal. Behavior: Behavior is cooperative. 10/16/23: LABS: CBC with Differential: Lab Results Component Value Date WBC 7.3 10/15/2023 HGB 12.7 10/15/2023 HGB 12.7 10/15/2023 HGB 8.4 (L) 09/08/2014 HCT 38.1 10/15/2023 HCT 26 (L) 09/08/2014 HCT 39 09/05/2014 PLT 219 10/15/2023 PLT 229 10/15/2023 MCV 103 (H) 10/15/2023 MCH 34.3 (H) 10/15/2023 MCHC 33.3 10/15/2023 RDW 12.7 10/15/2023 BMP: Lab Results Component Value Date SODIUM 140 10/15/2023 SODIUM 144 09/05/2014 K 4.8 10/15/2023 K 3.5 09/08/2014 CL 97 (L) 10/15/2023 CL 117 (H) 09/05/2014 CO2 28 10/15/2023 BUN 20 10/15/2023 BUN 33 (H) 09/05/2014 CREATININE 0.81 10/15/2023 CREATININE 0.88 10/15/2023 CREATININE 1.7 (H) 09/05/2014 EGFR 79 10/15/2023 EGFR 71 10/15/2023 GLU 138 (H) 10/15/2023 GLU 173 (H) 10/12/2023 GLU 126 (H) 09/05/2014 BNP: Lab Results Component Value Date BNP 1,101 (H) 10/13/2023 Troponin: Lab Results Component Value Date TROPONINI 9.76 (HH) 10/13/2023 HgBA1c: Lab Results Component Value Date HGBA1C 4.8 10/14/2023 Lipid Panel: Lab Results Component Value Date CHOL 135 (L) 10/14/2023 TRIG 150 10/14/2023 HDL 59 10/14/2023 RADIOLOGY: Assessment/Plan Please note that total time spent was 20 minutes: Including but not limited to: Preparing to see the patient (e.g., review of tests) Obtaining and/or reviewing separately obtained history Performing a medically appropriate examination and evaluation Counseling and educating the patient/family/caregiver Ordering medications, tests, or procedures Documenting visit details Ashvin was seen today for follow-up. Diagnoses and all orders for this visit: PAD (peripheral artery disease) ([facility]) - Vas art duplex lwr bilateral; Future - Vas art doppler lwr limited single; Future Ashvin Rene is a 67 y.o. White or female w/ h/o CAD (CABG), CHF, asymptomatic bilateral carotid artery stenosis and PAD w/ R foot wound. Carotid A stenosis: Carotid US 10/06/23: Bilat <50% ICA stenosis. No indication for surgical intervention unless symptomatic w/ >50% stenosis or asymptomatic w/ disease progression >70-80% Continue w/ medical mgmt Surveillance plan: repeat carotid duplex yearly to monitor for disease progression. Next due 09/2024. Peripheral arterial disease w/ R foot wound: reported previous angio w/ RLE intervention. Previous angio at [facility] - will attempt to get records. Surveillance: LE arterial duplex and FRANCIS/PVR ordered. Medical mgmt: Anti-platelet: plavix, ASA Statin: crestor Return to office after LE arterial duplex and FRANCIS/PVR completed to review results and discuss further plan of care. SIGNATURE: Genet Small DO CC: TUSHAR SOLANO JR, Tushar Guerrero Jr., * documented in this encounter [facility] 10-15-2023 Plan of care note Problem: Pain Goal: Patient goal is pain score less than 4, able to rest, and participant in treatment plan as appropriate Description: INTERVENTIONS: 1. Encourage patient or legal corporate sales representative to report early pain and [...] per policy 9. Teach patient or legal corporate sales representative interventions for comforting Outcome: Progressing [...] at the bedside 7. Instruct patient/ patient corporate sales representative about use of safety devices 8. Include patient/ patient corporate sales representative in decisions related to safety [...] hygiene technique 7. Identify and instruct patient/patient corporate sales representative in use of appropriate isolation precautions for identified infection/symptoms 8. Provide and discuss with patient/patient corporate sales representative on educational MDRO sheet 9. Encourage and monitor nutritional status daily and consult leather production worker if indicated 10. Implement neutropenic guidelines as needed 11. Review exposure to history of communicable disease and recent travel history on admission 12. Encourage annual influenza vaccine 13. Encourage pneumonia vaccine Outcome: Progressing Note: Evaluation of progress towards goal: Patient remains free from infection due to hospitalization. Patient remains afebrile at this time. Problem: Knowledge Deficit Goal: Patient/patient corporate sales representative demonstrates understanding of disease process, treatment plan, medications, and discharge instructions Description: INTERVENTIONS 1. Complete learning assessment and assess knowledge base 2. Provide teaching at level of understanding 3. Provide teaching via preferred learning method(s) Outcome: Progressing Note: Evaluation of progress towards goal: Patient demonstrates understanding of plan of care and treatment plan at this time. [facility]15[facility]23 Miscellaneous Notes Problem: Pain Goal: Patient goal is pain score less than 4, able to rest, and participant in treatment plan as appropriate Description: INTERVENTIONS: 1. Encourage patient or legal corporate sales representative to report early pain and [...] per policy 9. Teach patient or legal corporate sales representative interventions for comforting Outcome: Progressing [...] at the bedside 7. Instruct patient/ patient corporate sales representative about use of safety devices 8. Include patient/ patient corporate sales representative in decisions related to safety [...] hygiene technique 7. Identify and instruct patient/patient corporate sales representative in use of appropriate isolation precautions for identified infection/symptoms 8. Provide and discuss with patient/patient corporate sales representative on educational MDRO sheet 9. Encourage and monitor nutritional status daily and consult leather production worker if indicated 10. Implement neutropenic guidelines as needed 11. Review exposure to history of communicable disease and recent travel history on admission 12. Encourage annual influenza vaccine 13. Encourage pneumonia vaccine Outcome: Progressing Note: Evaluation of progress towards goal: Patient remains free from infection due to hospitalization. Patient remains afebrile at this time. Problem: Knowledge Deficit Goal: Patient/patient corporate sales representative demonstrates understanding of disease process, [...] Description: INTERVENTIONS: 1. Encourage patient or legal corporate sales representative to report early pain and [...] per policy 9. Teach patient or legal corporate sales representative interventions for comforting Outcome: Progressing [...] at the bedside 7. Instruct patient/ patient corporate sales representative about use of safety devices 8. Include patient/ patient corporate sales representative in decisions related to safety [...] hygiene technique 7. Identify and instruct patient/patient corporate sales representative in use of appropriate isolation precautions for identified infection/symptoms 8. Provide and discuss with patient/patient corporate sales representative on educational MDRO sheet 9. Encourage and monitor nutritional status daily and consult leather production worker if indicated 10. Implement neutropenic guidelines as needed 11. Review exposure to history of communicable disease and recent travel history on admission 12. Encourage annual influenza vaccine 13. Encourage pneumonia vaccine Outcome: Progressing Note: Evaluation of progress towards goal: Pt afebrile and no outward signs of infection during shift. Problem: Knowledge Deficit Goal: Patient/patient corporate sales representative demonstrates understanding of disease process, [...] develop effective communication strategies 4. Include patient/patient corporate sales representative in decisions related to communication [...] Collaborate with ancillary departments 14. Include patient/patient corporate sales representative in decisions related to anxiety [...] providing care 6. Collaborate with pastoral/spiritual care, psychiatric social worker supervisor, mental health counselor as needed. 7. Instruct patient on diversional activities such as physical activity, distraction, and deep breathing exercises to assist with coping 8. Involve patient's corporate sales representative in care Outcome: Progressing Note: [...] supplement as ordered 13. Collaborate with clinical leather production worker 14. Include patient/ patient's corporate sales representative in decisions related to nutrition [...] Score of =/> 25 or indicated by [facility] Assessment Goal: Patient should be free from fall Description: Interventions: 1. [place] to environment 2. Hourly rounds addressing the [...] non-skid footwear 11. Teach patient and patient corporate sales representative to maintain environment for safety [...] (cane, walker) within reach 19. Request patient corporate sales representative bring adaptive equipment/mobility aids from home or obtain and provide as needed 20. Consult pharmacy regarding effects of med's affecting mobility, cognition, and alternatives 21. Obtain physician order for PT if risk factors associated with mobility are present 22. Obtain physician order for OT as appropriate 23. Utilize diversional activities 24. Educate patient and patient corporate sales representative how to maintain a safe environment during visitation times (notify nurse prior to leaving bedside) 25. Consider appropriateness of medical or non-product manager medical device 26. Set up voiding schedule as appropriate (every 2 hours) Outcome: Progressing Note: Evaluation of progress towards goal: No signs of falls during shift. Problem: Pain Goal: Patient goal is pain score less than 4, able to rest, and participant in treatment plan as appropriate Description: INTERVENTIONS: 1. Encourage patient or legal corporate sales representative to report early pain and [...] per policy 9. Teach patient or legal corporate sales representative interventions for comforting Outcome: Progressing [...] at the bedside 7. Instruct patient/ patient corporate sales representative about use of safety devices 8. Include patient/ patient corporate sales representative in decisions related to safety [...] hygiene technique 7. Identify and instruct patient/patient corporate sales representative in use of appropriate isolation precautions for identified infection/symptoms 8. Provide and discuss with patient/patient corporate sales representative on educational MDRO sheet 9. Encourage and monitor nutritional status daily and consult leather production worker if indicated 10. Implement neutropenic guidelines as needed 11. Review exposure to history of communicable disease and recent travel history on admission 12. Encourage annual influenza vaccine 13. Encourage pneumonia vaccine Outcome: Progressing Note: Evaluation of progress towards goal: Pt is afebrile at this time. Problem: Knowledge Deficit Goal: Patient/patient corporate sales representative demonstrates understanding of disease process, [...] Score of =/> 25 or indicated by [facility] Assessment Goal: Patient should be free from fall Description: Interventions: 1. [place] to environment 2. Hourly rounds addressing the [...] non-skid footwear 11. Teach patient and patient corporate sales representative to maintain environment for safety [...] (cane, walker) within reach 19. Request patient corporate sales representative bring adaptive equipment/mobility aids from home or obtain and provide as needed 20. Consult pharmacy regarding effects of med's affecting mobility, cognition, and alternatives 21. Obtain physician order for PT if risk factors associated with mobility are present 22. Obtain physician order for OT as appropriate 23. Utilize diversional activities 24. Educate patient and patient corporate sales representative how to maintain a safe environment during visitation times (notify nurse prior to leaving bedside) 25. Consider appropriateness of medical or non-product manager medical device 26. Set up voiding schedule as appropriate (every 2 hours) Outcome: Progressing Note: Evaluation of progress towards goal: Pt is free from falls at this time. Pre Procedure Evaluation: H&P was reviewed and the patient was examined. No change has occurred in the patient's condition since the H&P was completed. 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 Lead Mechanic Visit: ACS > 24hrs Chest Pain Symptom Assessment: typical Cardiovascular Instability: No Heart Failure: Yes Congestive Heart Failure (NYHA Classification within 2 weeks): III Heart Failure Newly Diagnosed: No Heart Failure Type: Systolic Electrocardiac Assessment Method: None Stress Test Performed: No Cardiac CTA: No CS Clinical Frailty Scale (Assessment immediately prior to [...] Description: INTERVENTIONS: 1. Encourage patient or legal corporate sales representative to report early pain and [...] per policy 9. Teach patient or legal corporate sales representative interventions for comforting Outcome: Progressing [...] at the bedside 7. Instruct patient/ patient corporate sales representative about use of safety devices 8. Include patient/ patient corporate sales representative in decisions related to safety [...] hygiene technique 7. Identify and instruct patient/patient corporate sales representative in use of appropriate isolation precautions for identified infection/symptoms 8. Provide and discuss with patient/patient corporate sales representative on educational MDRO sheet 9. Encourage and monitor nutritional status daily and consult leather production worker if indicated 10. Implement neutropenic guidelines as needed 11. Review exposure to history of communicable disease and recent travel history on admission 12. Encourage annual influenza vaccine 13. Encourage pneumonia vaccine Outcome: Progressing Note: Evaluation of progress towards goal: Patient afebrile and WBC of 5.3. Will continue to monitor for signs of infection Problem: Knowledge Deficit Goal: Patient/patient corporate sales representative demonstrates understanding of disease process, [...] develop effective communication strategies 4. Include patient/patient corporate sales representative in decisions related to communication [...] supplement as ordered 13. Collaborate with clinical leather production worker 14. Include patient/ patient's corporate sales representative in decisions related to nutrition Outcome: Progressing Note: Evaluation of progress towards goal: Collaborating with interdisciplinary team to ensure adequate nutritional intake. Problem: Moderate - High Risk Fall Score Description: Beal Fall Score of =/> 25 or indicated by [facility] Assessment Goal: Patient should be free from fall Description: Interventions: 1. [place] to environment 2. Hourly rounds addressing the [...] non-skid footwear 11. Teach patient and patient corporate sales representative to maintain environment for safety [...] (cane, walker) within reach 19. Request patient corporate sales representative bring adaptive equipment/mobility aids from home or obtain and provide as needed 20. Consult pharmacy regarding effects of med's affecting mobility, cognition, and alternatives 21. Obtain physician order for PT if risk factors associated with mobility are present 22. Obtain physician order for OT as appropriate 23. Utilize diversional activities 24. Educate patient and patient corporate sales representative how to maintain a safe environment during visitation times (notify nurse prior to leaving bedside) 25. Consider appropriateness of medical or non-product manager medical device 26. Set up voiding schedule as appropriate [...] Description: INTERVENTIONS: 1. Encourage patient or legal corporate sales representative to report early pain and [...] per policy 9. Teach patient or legal corporate sales representative interventions for comforting Outcome: Progressing [...] at the bedside 7. Instruct patient/ patient corporate sales representative about use of safety devices 8. Include patient/ patient corporate sales representative in decisions related to safety [...] hygiene technique 7. Identify and instruct patient/patient corporate sales representative in use of appropriate isolation precautions for identified infection/symptoms 8. Provide and discuss with patient/patient corporate sales representative on educational MDRO sheet 9. Encourage and monitor nutritional status daily and consult leather production worker if indicated 10. Implement neutropenic guidelines as needed 11. Review exposure to history of communicable disease and recent travel history on admission 12. Encourage annual influenza vaccine 13. Encourage pneumonia vaccine Outcome: Progressing Note: Evaluation of progress towards goal: Pt is afebrile at this time. Problem: Knowledge Deficit Goal: Patient/patient corporate sales representative demonstrates understanding of disease process, [...] Score of =/> 25 or indicated by [facility] Assessment Goal: Patient should be free from fall Description: Interventions: 1. [place] to environment 2. Hourly rounds addressing the [...] non-skid footwear 11. Teach patient and patient corporate sales representative to maintain environment for safety [...] (cane, walker) within reach 19. Request patient corporate sales representative bring adaptive equipment/mobility aids from home or obtain and provide as needed 20. Consult pharmacy regarding effects of med's affecting mobility, cognition, and alternatives 21. Obtain physician order for PT if risk factors associated with mobility are present 22. Obtain physician order for OT as appropriate 23. Utilize diversional activities 24. Educate patient and patient corporate sales representative how to maintain a safe environment during visitation times (notify nurse prior to leaving bedside) 25. Consider appropriateness of medical or non-product manager medical device 26. Set up voiding schedule as appropriate [...] Description: INTERVENTIONS: 1. Encourage patient or legal corporate sales representative to report early pain and [...] per policy 9. Teach patient or legal corporate sales representative interventions for comforting Outcome: Progressing [...] at the bedside 7. Instruct patient/ patient corporate sales representative about use of safety devices 8. Include patient/ patient corporate sales representative in decisions related to safety [...] hygiene technique 7. Identify and instruct patient/patient corporate sales representative in use of appropriate isolation precautions for identified infection/symptoms 8. Provide and discuss with patient/patient corporate sales representative on educational MDRO sheet 9. Encourage and monitor nutritional status daily and consult leather production worker if indicated 10. Implement neutropenic guidelines as needed 11. Review exposure to history of communicable disease and recent travel history on admission 12. Encourage annual influenza vaccine 13. Encourage pneumonia vaccine Outcome: Progressing Note: Evaluation of progress towards goal: Pt afebrile and no outward signs of infection during shift. Problem: Knowledge Deficit Goal: Patient/patient corporate sales representative demonstrates understanding of disease process, [...] develop effective communication strategies 4. Include patient/patient corporate sales representative in decisions related to communication [...] Collaborate with ancillary departments 14. Include patient/patient corporate sales representative in decisions related to anxiety [...] providing care 6. Collaborate with pastoral/spiritual care, psychiatric social worker supervisor, mental health counselor as needed. 7. Instruct patient on diversional activities such as physical activity, distraction, and deep breathing exercises to assist with coping 8. Involve patient's corporate sales representative in care Outcome: Progressing Note: [...] supplement as ordered 13. Collaborate with clinical leather production worker 14. Include patient/ patient's corporate sales representative in decisions related to nutrition [...] Score of =/> 25 or indicated by [facility] Rehab Assessment Goal: Patient should be free from fall Description: Interventions: 1. Mackay to environment 2. Hourly rounds addressing the [...] non-skid footwear 11. Teach patient and patient corporate sales representative to maintain environment for safety [...] (cane, walker) within reach 19. Request patient corporate sales representative bring adaptive equipment/mobility aids from home or obtain and provide as needed 20. Consult pharmacy regarding effects of med's affecting mobility, cognition, and alternatives 21. Obtain physician order for PT if risk factors associated with mobility are present 22. Obtain physician order for OT as appropriate 23. Utilize diversional activities 24. Educate patient and patient corporate sales representative how to maintain a safe environment during visitation times (notify nurse prior to leaving bedside) 25. Consider appropriateness of medical or non-product manager medical device 26. Set up voiding schedule as appropriate (every 2 hours) Outcome: Progressing Note: Evaluation of progress towards goal: No signs of falls during shift. documented in this encounter [facility] 10-15-2023 Hospital course Narrative Inpatient Discharge Summary BRIEF OVERVIEW Admitting Provider: Jonathan Pizarro DO Discharge Provider: Jonathan Pizarro DO Primary Care Physician at Discharge: TUSHAR SOLANO JR, DO [phone] Admission Date: 10/12/2023 Discharge Date: No discharge [...] BPH 11/13/2023 2:30 PM Bernice Davis MD [facility] Referrals and Follow-ups to Schedule No dressing [facility] - [place], [place] DETAILS OF HOSPITAL STAY Presenting Problem/History [...] Your Medications These medications were sent to [facility]/pharmacy #[id number] AT [place] [address] bisoprolol 5 mg tablet collagenase ointment dapagliflozin propanediol 10 mg tablet sacubitriL-valsartan 24-26 mg tablet spironolactone 25 mg tablet Kallie Roman MD PGY-3, Internal Medicine [facility] Associated attestation - Anup Reed MD - [...] in 1 week documented in this encounter [facility] 10-15-2023 Hospital Discharge instructions Kallie Roman [...] week of discharge documented in this encounter [facility] 10-15-2023 History of Present illness Narrative [...] were not included. INTERVENTIONAL CARDIOLOGY SUMMARY Ashvin Berry Rene this is a 67-year-old female with a past medical history of CHF, ischemic cardiomyopathy, ASCVD with previous CABG x2 with CHURCH to LAD and SVG to RCA in 2014. She also went to [facility] and had orbital arthrectomy of the circumflex, PCI of the distal circumflex, PCI of the mid to distal circumflex was overlapping stents and PCI proximal circumflex in 2020. She then locally had HARRY to circumflex 02/15/2023, prior stent to the LAD in 2007, prior CVA hypotension on chronic midodrine. Patient initially presented to [facility] with generalized weakness and shortness of breath. She was found to [place] decompensated [place] [address] as well as high sensitivity troponin greater than 26,000. Potassium was profoundly low at 2.6. She was transferred to [facility] for further management. She had a [...] last 7 days Lab Units 10/14/23 0314 10/13/2332510/13/23 0037 WBC X10E9/L 8.4 5.3 -- HEMOGLOBIN [...] be continued indefinitely given significant disease in [place] coronary arteries. Optimize medical therapy for coronary [...] be continued indefinitely given significant disease in [place] coronary arteries. Optimize medical therapy for coronary artery disease. Post percutaneous coronary intervention orders Remove sheath 2.5 hours after stopping Angiomax drip. Family updated CHER Mccoy APRN-CNP 10/14/23 1001 Images from the original note were not included. [facility] ACADEMIC SERVICE PROGRESS NOTE Ashvin Rene is a 67 y.o. 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, prior CVA who presented to OSH with weakness SOB and cough found to be in CHF with proBNP 01272, [place] trop 65600, and K 2.1 which was repleted but [...] be continued indefinitely given significant disease in [place] coronary arteries. Optimize medical therapy for coronary [...] be continued indefinitely given significant disease in [place] coronary arteries. Optimize medical therapy for coronary [...] dextrose 5 % in water, 100 mL/hr [SEP Hold] heparin, 300-3,500 Units/hr, Last Rate: 700 Units/hr [...] (D50W) [SEP Hold] predniSONE AND [Sep] diphenhydrAMINE [Sep] glucagon (human recombinant) [SEP Hold] heparin (porcine) [SEP Hold] magnesium sulfate OR [SEP Hold] magnesium sulfate [Sep] midodrine [SEP Hold] potassium chloride OR [Sep] potassium chloride [Sep] potassium chloride in water OR [Sep] potassium chloride in water [SEP Hold] sodium phosphate IV OR [Sep] sodium phosphate IV - central line OR [Sep] sod phos di, mono-K phos mono [Sep] sodium chloride 0.9 % [SEP Hold] sodium [...] Tejeda MD Resident, PGY-1 10/14/23 7:39 AM [facility] This note was completed using a voice production recorder system. Every effort was made to ensure accuracy. However, inadvertent computerized production recorder errors may be present. Associated attestation - [...] from last 7 days Lab Units 10/14/2331310/13/23 14010/13/23 0642 10/13/2332510/13/23 0037 POTASSIUM mmol/L 4.4 4.5 3.1* 3.4* 3.4* CHLORIDE mmol/L 100 -- -- 100 100 CO2 mmol/L 30 -- -- 30 30 BUN mg/dL 22 -- -- 16 16 CREATININE mg/dL 1.05* -- -- 0.79 0.88 PT/INR: Results from last 7 days Lab Units 10/13/23 0037 PROTIME sec 16.6* INR 1.4* MAG: Results from last 7 days Lab Units 10/14/2331310/13/23 032 MAGNESIUM mg/dL 1.8 1.1* Troponin I Results from last 7 days Lab Units 10/13/23140810/13/2332510/13/23 0037 TROPONIN I ng/mL 9.76* 13.09* 13.88* [...] Lab Units 10/13/23 1409 10/13/23 0642 10/13/23 03210/13/23 0037 POTASSIUM mmol/L 4.5 3.1* 3.4* 3.4* [...] his on midodrine, hold on afterload reduction/ARB/ARNI [facility] C[facility] ACADEMIC SERVICE PROGRESS NOTE Ashvin Rene is a 67 y.o. 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, prior CVA who presented to OSH with weakness SOB and cough found to be in CHF with proBNP 64395, HS trop 59248, and K 2.1 which was repleted but [...] be continued indefinitely given significant disease in [place] coronary arteries. Optimize medical therapy for coronary [...] be continued indefinitely given significant disease in [place] coronary arteries. Optimize medical therapy for coronary [...] of 35-40% Atherosclerotic heart disease of the [place] coronary arteries with stable angina pectoris History of CABG and subsequent HARRY Profound hypokalemia 2.1 in the ER at [facility] receiving replacements PLAN - plan for diagnostic cath tomorrow - aspirin and Plavix - replace potassium - continue ranexa - Continue rosuvastatin 20 mg - continue aldactone -advance diet as tolerated - Luciano Tejeda MD Resident, PGY-1 10/13/23 4:08 PM [facility] TE[facility]ING SERVICE This note was completed using a voice production recorder system. Every effort was made to ensure accuracy. However, inadvertent computerized production recorder errors may be present. Associated attestation - Anup Reed MD - 10/13/2023 4:47 PM EDT See my separate note documented in this encounter [facility] 10-15-2023 Note XR CHEST 1 VW Procedure: Chest x-ray performed Number of views:AP view History:Hypoxia Comparison:10/12/2023 Findings: The heart and mediastinal silhouette are stable. There is pulmonary vascular congestion. There are no focal consolidations. There is a small left pleural effusion. There is no pneumothorax Impression: Pulmonary vascular congestion. Finalized by Kay Dunn DO on 10/15/2023 10:48 AM [facility] 10-15-2023 Note Procedure: Chest x-ray performed Number of views:AP view History:Hypoxia Comparison:10/12/2023 Findings: The heart and mediastinal silhouette are stable. There is pulmonary vascular congestion. There are no focal consolidations. There is a small left pleural effusion. There is no pneumothorax Impression: Pulmonary vascular congestion. Finalized by Kay Dunn DO on 10/15/2023 10:48 AM [facility] Miscellaneous Notes From the 10/14/2023 procedure list: per BD. Patient is currently admitted at [facility] s/p CATH. Follow-up in the office in 7-10 days post discharge. PT STILL ADMITTED documented in this encounter [facility] 10-15-2023 Telephone encounter Note From the 10/14/2023 procedure list: per BD. Patient is currently admitted at [facility] s/p CATH. Follow-up in the office in 7-10 days post discharge. [facility] 10-15-2023 Telephone encounter Note PT STILL ADMITTED [facility] 10-14-2023 Plan of care note Problem: Pain Goal: Patient goal is pain score less than 4, able to rest, and participant in treatment plan as appropriate Description: INTERVENTIONS: 1. Encourage patient or legal corporate sales representative to report early pain and [...] per policy 9. Teach patient or legal corporate sales representative interventions for comforting Outcome: Progressing [...] at the bedside 7. Instruct patient/ patient corporate sales representative about use of safety devices 8. Include patient/ patient corporate sales representative in decisions related to safety [...] hygiene technique 7. Identify and instruct patient/patient corporate sales representative in use of appropriate isolation precautions for identified infection/symptoms 8. Provide and discuss with patient/patient corporate sales representative on educational MDRO sheet 9. Encourage and monitor nutritional status daily and consult leather production worker if indicated 10. Implement neutropenic guidelines as needed 11. Review exposure to history of communicable disease and recent travel history on admission 12. Encourage annual influenza vaccine 13. Encourage pneumonia vaccine Outcome: Progressing Note: Evaluation of progress towards goal: Pt afebrile and no outward signs of infection during shift. Problem: Knowledge Deficit Goal: Patient/patient corporate sales representative demonstrates understanding of disease process, [...] develop effective communication strategies 4. Include patient/patient corporate sales representative in decisions related to communication [...] Collaborate with ancillary departments 14. Include patient/patient corporate sales representative in decisions related to anxiety [...] providing care 6. Collaborate with pastoral/spiritual care, psychiatric social worker supervisor, mental health counselor as needed. 7. Instruct patient on diversional activities such as physical activity, distraction, and deep breathing exercises to assist with coping 8. Involve patient's corporate sales representative in care Outcome: Progressing Note: [...] supplement as ordered 13. Collaborate with clinical leather production worker 14. Include patient/ patient's corporate sales representative in decisions related to nutrition [...] Score of =/> 25 or indicated by [facility] Rehab Assessment Goal: Patient should be free from fall Description: Interventions: 1. Mackay to environment 2. Hourly rounds addressing the [...] non-skid footwear 11. Teach patient and patient corporate sales representative to maintain environment for safety [...] (cane, walker) within reach 19. Request patient corporate sales representative bring adaptive equipment/mobility aids from home or obtain and provide as needed 20. Consult pharmacy regarding effects of med's affecting mobility, cognition, and alternatives 21. Obtain physician order for PT if risk factors associated with mobility are present 22. Obtain physician order for OT as appropriate 23. Utilize diversional activities 24. Educate patient and patient corporate sales representative how to maintain a safe environment during visitation times (notify nurse prior to leaving bedside) 25. Consider appropriateness of medical or non-product manager medical device 26. Set up voiding schedule as appropriate (every 2 hours) Outcome: Progressing Note: Evaluation of progress towards goal: No signs of falls during shift. [facility] 10-14-2023 Plan of care note Problem: Pain Goal: Patient goal is pain score less than 4, able to rest, and participant in treatment plan as appropriate Description: INTERVENTIONS: 1. Encourage patient or legal corporate sales representative to report early pain and [...] per policy 9. Teach patient or legal corporate sales representative interventions for comforting Outcome: Progressing [...] at the bedside 7. Instruct patient/ patient corporate sales representative about use of safety devices 8. Include patient/ patient corporate sales representative in decisions related to safety [...] hygiene technique 7. Identify and instruct patient/patient corporate sales representative in use of appropriate isolation precautions for identified infection/symptoms 8. Provide and discuss with patient/patient corporate sales representative on educational MDRO sheet 9. Encourage and monitor nutritional status daily and consult leather production worker if indicated 10. Implement neutropenic guidelines as needed 11. Review exposure to history of communicable disease and recent travel history on admission 12. Encourage annual influenza vaccine 13. Encourage pneumonia vaccine Outcome: Progressing Note: Evaluation of progress towards goal: Pt is afebrile at this time. Problem: Knowledge Deficit Goal: Patient/patient corporate sales representative demonstrates understanding of disease process, [...] Score of =/> 25 or indicated by [facility] Rehab Assessment Goal: Patient should be free from fall Description: Interventions: 1. Mackay to environment 2. Hourly rounds addressing the [...] non-skid footwear 11. Teach patient and patient corporate sales representative to maintain environment for safety [...] (cane, walker) within reach 19. Request patient corporate sales representative bring adaptive equipment/mobility aids from home or obtain and provide as needed 20. Consult pharmacy regarding effects of med's affecting mobility, cognition, and alternatives 21. Obtain physician order for PT if risk factors associated with mobility are present 22. Obtain physician order for OT as appropriate 23. Utilize diversional activities 24. Educate patient and patient corporate sales representative how to maintain a safe environment during visitation times (notify nurse prior to leaving bedside) 25. Consider appropriateness of medical or non-product manager medical device 26. Set up voiding schedule as appropriate (every 2 hours) Outcome: Progressing Note: Evaluation of progress towards goal: Pt is free from falls at this time. [facility] 10-14-2023 Procedure note Pre Procedure Evaluation: H&P was reviewed and the patient was examined. No change has occurred in the patient's condition since the H&P was completed. 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 Lead Mechanic Visit: ACS > 24hrs Chest Pain Symptom Assessment: typical Cardiovascular Instability: No Heart Failure: Yes Congestive Heart Failure (NYHA Classification within 2 weeks): III Heart Failure Newly Diagnosed: No Heart Failure Type: Systolic Electrocardiac Assessment Method: None Stress Test Performed: No Cardiac CTA: No [facility] Clinical Frailty Scale (Assessment immediately prior to procedure): 6: Moderately Frail Cardiac Arrest Out of Hospital: No Cardiac Arrest at Transferring Facility: No [facility] 10-14-2023 Attending History and physical note HISTORY AND PHYSICAL INTERVAL NOTE: Ashvin Rene [id number] H&P reviewed. The patient was examined and there are no changes to the H&P. Alexi Freeman MD Source Note - Lenny Rodriguez MD - 10/12/2023 11:49 PM EDT Images from the original note were not included. [facility] [address] [place] [address] HISTORY & PHYSICAL / CONSULT NOTE Ashvin Smart [place] PCP: TUSHAR SOLANO JR, DO Date of Admission: 10/12/2023 Date of Consultation: 10/12/2023 11:49 PM Consult for CHF SUBJECTIVE History of Present Illness: Ashvin Rene is a 67 y.o. 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, prior CVA who presented to OSH with weakness SOB and cough found to be in CHF with proBNP 08445, HS trop 51939, and K 2.1 which was repleted but [...] started on Heparin gtt and transferred to [facility]. She states she feels better now and denies CP SOB. Previous Medical History: Past Medical History: Diagnosis Date Angina pectoris ([facility]) Atherosclerosis of coronary artery bypass graft Atherosclerotic heart disease Coronary angioplasty status Coronary artery disease CVA (cerebral vascular accident) ([facility]) Dyspnea Hyperlipidemia Hypertension Hypotension Other chest pain Stroke ([facility]) Previous Surgical History: Past Surgical History: Procedure Laterality Date CARDIAC CATHETERIZATION Cardiac catheterization N/A 02/15/2023 Performed by Star Espinosa MD at [facility] CARDIAC CATH LABS Cardiac catheterization - LV cors w/graft check N/A 10/25/2020 Performed by Alexi Freeman MD at [facility] CARDIAC CATH LABS Coronary angiogram and graft/[place] N/A 02/15/2023 Performed by Star Espinosa MD at [facility] CARDIAC CATH LABS Coronary angiogram and left ventricular gram/pressure + graft/[place] N/A 10/25/2020 Performed by Alexi Freeman MD at [facility] CARDIAC CATH LABS Coronary angiogram and left ventricular gram/pressure + graft/[place] N/A 06/18/2016 Performed by Alexi Freeman MD at [facility] CARDIAC CATH LABS CORONARY ANGIOPLASTY 12/08/2020 orbital atherectomy and 2 HARRY to prox and distal Circ, at [facility] per Dr. Madhav Ugalde CORONARY ARTERY BYPASS GRAFT 09/08/2014 HYSTERECTOMY INSERTION LOOP RECORDER 05/24/2016 Percutaneous coronary angioplasty left circumflex N/A 02/15/2023 Performed by Star Espinosa MD at [facility] CARDIAC CATH LABS Stent drug-eluting left circumflex N/A 02/15/2023 Performed by Star Espinosa MD at [facility] CARDIAC CATH LABS Allergies: Allergies Allergen Reactions Aspirin-Dipyridamole aggronox Atorvastatin Hives lipitor Cefadroxil duricef Codeine Fenofibrate Micronized tricor Fluvoxamine luvox Nefazodone serzone Niacin Other reaction(s): Intolerance-unknown Hospital Meds: Current Facility-Administered Medications Medication Dose Route Frequency Provider Last Rate Last Admin calcium gluconate IVPB 1000 mg/50 mL (20 mg/mL premix) 1,000 mg intravenous PRN Parul R Jeb, BEHAVIORAL HEALTH CLINICIAN-DIRECTOR HARDWARE Or calcium gluconate IVPB 2000 mg/100 mL (20 mg/mL premix) 2,000 mg intravenous PRN Parul R Jeb, BEHAVIORAL HEALTH CLINICIAN-DIRECTOR HARDWARE Or calcium gluconate 3,000 mg in sodium chloride 0.9 % 100 mL IVPB 3,000 mg intravenous PRN Parul R Jeb, BEHAVIORAL HEALTH CLINICIAN-DIRECTOR HARDWARE dextrose (GLUTOSE) 40 % gel 15 g 15 g oral PRN Parul R Jeb, BEHAVIORAL HEALTH CLINICIAN-DIRECTOR HARDWARE dextrose 5 % (D5W) infusion 100 mL/hr intravenous Continuous PRN Parul R Jeb, BEHAVIORAL HEALTH CLINICIAN-DIRECTOR HARDWARE dextrose 50 % in water (D50W) 50% solution 25 mL 25 mL intravenous PRN Parul R Jeb, BEHAVIORAL HEALTH CLINICIAN-DIRECTOR HARDWARE glucagon HCL injection 1 mg 1 mg intramuscular PRN Parul R Jeb, BEHAVIORAL HEALTH CLINICIAN-DIRECTOR HARDWARE heparin (porcine) injection 2,000 Units 2,000 Units intravenous PRN Parul R Jeb, BEHAVIORAL HEALTH CLINICIAN-DIRECTOR HARDWARE [START ON 10/13/2023] heparin infusion 66451 units/500 mL in 0.45% NaCl (50 units/mL premix) 300-3,500 Units/hr intravenous Continuous Parul R Jeb, BEHAVIORAL HEALTH CLINICIAN-DIRECTOR HARDWARE magnesium sulfate IVPB 2000 mg/50 mL in iso-osmotic water (40 mg/mL premix) 2,000 mg intravenous PRN Parul R Jeb, BEHAVIORAL HEALTH CLINICIAN-DIRECTOR HARDWARE Or magnesium sulfate IVPB 4000 mg/100 mL in iso-osmotic water (40 mg/mL premix) 4,000 mg intravenous PRN Parul R Jeb, BEHAVIORAL HEALTH CLINICIAN-DIRECTOR HARDWARE potassium chloride (K-TAB,KLOR-CON) CR tablet 20-50 mEq 20-50 mEq oral PRN Parul R Jeb, BEHAVIORAL HEALTH CLINICIAN-DIRECTOR HARDWARE Or potassium chloride (KAYCIEL) 20 mEq/15 mL solution 20-50 mEq 20-50 mEq oral PRN Parul R Jeb, BEHAVIORAL HEALTH CLINICIAN-DIRECTOR HARDWARE potassium chloride IVPB 10 mEq/50 mL in water (0.2 mEq/mL premix) 10 mEq intravenous PRN Parul R Jeb, BEHAVIORAL HEALTH CLINICIAN-DIRECTOR HARDWARE Or potassium chloride IVPB 10 mEq/100 mL in water (0.1 mEq/mL premix) 10 mEq intravenous PRN Parul R Jeb, BEHAVIORAL HEALTH CLINICIAN-DIRECTOR HARDWARE sodium phosphate 20 mmol in sodium chloride 0.9 % 250 mL IVPB 20 mmol intravenous PRN Parul R Jeb, BEHAVIORAL HEALTH CLINICIAN-DIRECTOR HARDWARE Or sodium phosphate 20 mmol in sodium chloride 0.9 % 100 mL IVPB 20 mmol intravenous PRN Parul R Jeb, BEHAVIORAL HEALTH CLINICIAN-DIRECTOR HARDWARE Or sod phos di, mono-K phos mono (K-PHOS NEUTRAL) 250 mg tablet 2 tablet 2 tablet oral PRN Parul R Jbe, BEHAVIORAL HEALTH CLINICIAN-DIRECTOR HARDWARE sodium chloride 0.9 % infusion 10 mL/hr intravenous Continuous PRN Parul R Jeb, BEHAVIORAL HEALTH CLINICIAN-DIRECTOR HARDWARE sodium chloride 0.9 % infusion 10 mL/hr intravenous Continuous PRN Parul R Jeb, BEHAVIORAL HEALTH CLINICIAN-DIRECTOR HARDWARE sodium chloride 0.9 % infusion 10 mL/hr intravenous Continuous PRN Parul R Jeb, BEHAVIORAL HEALTH CLINICIAN-DIRECTOR HARDWARE Home Meds: Prior to Admission medications Medication [...] be continued indefinitely given significant disease in [place] coronary arteries. Optimize medical therapy for coronary [...] be continued indefinitely given significant disease in [place] coronary arteries. Optimize medical therapy for coronary [...] Acute on chronic HFrEF Elevated HS troponin 96662 ASCVD h/o CABG and s/p PCI Cx 03/05 Ischemic cardiomyopathy EF 35-40% Hypokalemia Chronic hypotension on midodrine Dyslipidemia Trend troponins Recheck electrolytes IV diuresis Continue Heparin gtt Continue DAPT Unable to titrate GDMT given HOTN Recheck echo PARUL JOHN APRN-DIRECTOR HARDWARE Parul John APRN-SUNIL 10/13/23 0016 [facility] [...] 2,000 Units intravenous PRN Parul John APRN-SUNIL heparin infusion 52094 units/500 mL in 0.45% NaCl (50 units/mL premix) 300-3,500 Units/hr intravenous Continuous JASON RinconDIRECTOR HARDWARE 16 mL/hr at 10/13/23 0013 800 Units/hr at 10/13/23 0013 magnesium sulfate IVPB 2000 mg/50 mL in iso-osmotic water (40 mg/mL premix) 2,000 mg intravenous PRN Parul R Jeb, BEHAVIORAL HEALTH CLINICIAN-DIRECTOR HARDWARE Or magnesium sulfate IVPB 4000 mg/100 mL in iso-osmotic water (40 mg/mL premix) 4,000 mg intravenous PRN Parul R Jeb, BEHAVIORAL HEALTH CLINICIAN-DIRECTOR HARDWARE midodrine (PROAMATINE) tablet 5 mg 5 mg oral Q8H PRN Parul R Jeb, BEHAVIORAL HEALTH CLINICIAN-DIRECTOR HARDWARE potassium chloride (K-TAB,KLOR-CON) CR tablet 20-50 mEq 20-50 mEq oral PRN Parul R Jeb, BEHAVIORAL HEALTH CLINICIAN-DIRECTOR HARDWARE Or potassium chloride (KAYCIEL) 20 mEq/15 mL solution 20-50 mEq 20-50 mEq oral PRN Parul R Jeb, BEHAVIORAL HEALTH CLINICIAN-DIRECTOR HARDWARE potassium chloride IVPB 10 mEq/50 mL in water (0.2 mEq/mL premix) 10 mEq intravenous PRN Parul R Jeb, BEHAVIORAL HEALTH CLINICIAN-DIRECTOR HARDWARE Or potassium chloride IVPB 10 mEq/100 mL in water (0.1 mEq/mL premix) 10 mEq intravenous PRN Parul R Jeb, BEHAVIORAL HEALTH CLINICIAN-DIRECTOR HARDWARE ranolazine (RANEXA) 12 hr tablet 1,000 mg 1,000 mg oral BID Parul Hassann, BEHAVIORAL HEALTH CLINICIAN-DIRECTOR HARDWARE rosuvastatin (CRESTOR) tablet 20 mg 20 mg oral Daily Parul Hassann, BEHAVIORAL HEALTH CLINICIAN-DIRECTOR HARDWARE sodium phosphate 20 mmol in sodium chloride 0.9 % 250 mL IVPB 20 mmol intravenous PRN Parul R Jeb, BEHAVIORAL HEALTH CLINICIAN-DIRECTOR HARDWARE Or sodium phosphate 20 mmol in sodium chloride 0.9 % 100 mL IVPB 20 mmol intravenous PRN Parul R Jeb, BEHAVIORAL HEALTH CLINICIAN-DIRECTOR HARDWARE Or sod phos di, mono-K phos mono (K-PHOS NEUTRAL) 250 mg tablet 2 tablet 2 tablet oral PRN Parul R Jeb, BEHAVIORAL HEALTH CLINICIAN-DIRECTOR HARDWARE sodium chloride 0.9 % infusion 10 mL/hr intravenous Continuous PRN Parul R Jeb, BEHAVIORAL HEALTH CLINICIAN-DIRECTOR HARDWARE sodium chloride 0.9 % infusion 10 mL/hr intravenous Continuous PRN Parul R Jeb, BEHAVIORAL HEALTH CLINICIAN-DIRECTOR HARDWARE sodium chloride 0.9 % infusion 10 mL/hr intravenous Continuous PRN Parul R Jeb, BEHAVIORAL HEALTH CLINICIAN-DIRECTOR HARDWARE Laboratory CBC: BMP: Troponin I Physical Exam [...] This note was completed using a voice production recorder system. Every effort was made to ensure accuracy. However, inadvertent computerized production recorder errors may be present. [employer] Work Phone: 10-14-2023 History and physical note HISTORY AND PHYSICAL INTERVAL NOTE: Ashvin Smart Rene [id number] H&P reviewed. The patient was examined and there are no changes to the H&P. Alexi Freeman MD Source Note - Lenny Rodriguez MD - 10/12/2023 11:49 PM EDT Images from the original note were not included. [facility] [address] [place] [address] HISTORY & PHYSICAL / CONSULT NOTE Ashvin Berry Rene PCP: TUSHAR SOLANO JR, DO Date of Admission: 10/12/2023 Date of Consultation: 10/12/2023 11:49 PM Consult for CHF SUBJECTIVE History of Present Illness: Ashvin Rene is a 67 y.o. 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, prior CVA who presented to OSH with weakness SOB and cough found to be in CHF with proBNP 76473, HS trop 28443, and K 2.1 which was repleted but [...] Past Medical History: Diagnosis Date Angina pectoris ([facility]) Atherosclerosis of coronary artery bypass graft Atherosclerotic heart disease Coronary angioplasty status Coronary artery disease CVA (cerebral vascular accident) ([facility]) Dyspnea Hyperlipidemia Hypertension Hypotension Other chest pain Stroke ([facility]) Previous Surgical History: Past Surgical History: Procedure Laterality Date CARDIAC CATHETERIZATION Cardiac catheterization N/A 02/15/2023 Performed by Star Espinosa MD at [facility] CARDIAC CATH LABS Cardiac catheterization - LV cors w/graft check N/A 10/25/2020 Performed by Alexi Freeman MD at [facility] CARDIAC CATH LABS Coronary angiogram and graft/[place] N/A 02/15/2023 Performed by Star Espinosa MD at [facility] CARDIAC CATH LABS Coronary angiogram and left ventricular gram/pressure + graft/[place] N/A 10/25/2020 Performed by Alexi Freeman MD at [facility] CARDIAC CATH LABS Coronary angiogram and left ventricular gram/pressure + graft/[place] N/A 06/18/2016 Performed by Alexi Freeman MD at [facility] CARDIAC CATH LABS CORONARY ANGIOPLASTY 12/08/2020 orbital atherectomy and 2 HARRY to prox and distal Circ, at [facility] per Dr. Madhav Ugalde CORONARY ARTERY BYPASS GRAFT 09/08/2014 HYSTERECTOMY INSERTION LOOP RECORDER 05/24/2016 Percutaneous coronary angioplasty left circumflex N/A 02/15/2023 Performed by Star Espinosa MD at [facility] CARDIAC CATH LABS Stent drug-eluting left circumflex N/A 02/15/2023 Performed by Star Espinosa MD at [facility] CARDIAC CATH LABS Allergies: Allergies Allergen Reactions Aspirin-Dipyridamole aggronox Atorvastatin Hives lipitor Cefadroxil duricef Codeine Fenofibrate Micronized tricor Fluvoxamine luvox Nefazodone serzone Niacin Other reaction(s): Intolerance-unknown Hospital Meds: Current Facility-Administered Medications Medication Dose Route Frequency Provider Last Rate Last Admin calcium gluconate IVPB 1000 mg/50 mL (20 mg/mL premix) 1,000 mg intravenous PRN Parul Hassann, BEHAVIORAL HEALTH CLINICIAN-DIRECTOR HARDWARE Or calcium gluconate IVPB 2000 mg/100 mL (20 mg/mL premix) 2,000 mg intravenous PRN Parul Hassann, BEHAVIORAL HEALTH CLINICIAN-DIRECTOR HARDWARE Or calcium gluconate 3,000 mg in sodium chloride 0.9 % 100 mL IVPB 3,000 mg intravenous PRN Parul John, BEHAVIORAL HEALTH CLINICIAN-DIRECTOR HARDWARE dextrose (GLUTOSE) 40 % gel 15 g 15 g oral PRN Parul John, BEHAVIORAL HEALTH CLINICIAN-DIRECTOR HARDWARE dextrose 5 % (D5W) infusion 100 mL/hr intravenous Continuous PRN Parul John BEHAVIORAL HEALTH CLINICIAN-DIRECTOR HARDWARE dextrose 50 % in water (D50W) 50% solution 25 mL 25 mL intravenous PRN Parul John, BEHAVIORAL HEALTH CLINICIAN-DIRECTOR HARDWARE glucagon HCL injection 1 mg 1 mg intramuscular PRN Parul John, BEHAVIORAL HEALTH CLINICIAN-DIRECTOR HARDWARE heparin (porcine) injection 2,000 Units 2,000 Units intravenous PRN Parul John BEHAVIORAL HEALTH CLINICIAN-DIRECTOR HARDWARE [START ON 10/13/2023] heparin infusion 97343 units/500 mL in 0.45% NaCl (50 units/mL premix) 300-3,500 Units/hr intravenous Continuous Parul John BEHAVIORAL HEALTH CLINICIAN-DIRECTOR HARDWARE magnesium sulfate IVPB 2000 mg/50 mL in iso-osmotic water (40 mg/mL premix) 2,000 mg intravenous PRN Parul Hassann, BEHAVIORAL HEALTH CLINICIAN-DIRECTOR HARDWARE Or magnesium sulfate IVPB 4000 mg/100 mL in iso-osmotic water (40 mg/mL premix) 4,000 mg intravenous PRN Parul John BEHAVIORAL HEALTH CLINICIAN-DIRECTOR HARDWARE potassium chloride (K-TAB,KLOR-CON) CR tablet 20-50 mEq 20-50 mEq oral PRN Parul R Jeb, BEHAVIORAL HEALTH CLINICIAN-DIRECTOR HARDWARE Or potassium chloride (KAYCIEL) 20 mEq/15 mL solution 20-50 mEq 20-50 mEq oral PRN Parul R Jeb, BEHAVIORAL HEALTH CLINICIAN-DIRECTOR HARDWARE potassium chloride IVPB 10 mEq/50 mL in water (0.2 mEq/mL premix) 10 mEq intravenous PRN Parul R Jeb, BEHAVIORAL HEALTH CLINICIAN-DIRECTOR HARDWARE Or potassium chloride IVPB 10 mEq/100 mL in water (0.1 mEq/mL premix) 10 mEq intravenous PRN Parul R Jeb, BEHAVIORAL HEALTH CLINICIAN-DIRECTOR HARDWARE sodium phosphate 20 mmol in sodium chloride 0.9 % 250 mL IVPB 20 mmol intravenous PRN Parul R Jeb, BEHAVIORAL HEALTH CLINICIAN-DIRECTOR HARDWARE Or sodium phosphate 20 mmol in sodium chloride 0.9 % 100 mL IVPB 20 mmol intravenous PRN Parul R Jeb, BEHAVIORAL HEALTH CLINICIAN-DIRECTOR HARDWARE Or sod phos di, mono-K phos mono (K-PHOS NEUTRAL) 250 mg tablet 2 tablet 2 tablet oral PRN Parul R Jeb, BEHAVIORAL HEALTH CLINICIAN-DIRECTOR HARDWARE sodium chloride 0.9 % infusion 10 mL/hr intravenous Continuous PRN Parul R Jeb, BEHAVIORAL HEALTH CLINICIAN-DIRECTOR HARDWARE sodium chloride 0.9 % infusion 10 mL/hr intravenous Continuous PRN Parul R Jeb, BEHAVIORAL HEALTH CLINICIAN-DIRECTOR HARDWARE sodium chloride 0.9 % infusion 10 mL/hr intravenous Continuous PRN Parul R Jeb, BEHAVIORAL HEALTH CLINICIAN-DIRECTOR HARDWARE Home Meds: Prior to Admission medications Medication [...] be continued indefinitely given significant disease in [place] coronary arteries. Optimize medical therapy for coronary [...] be continued indefinitely given significant disease in [place] coronary arteries. Optimize medical therapy for coronary [...] Acute on chronic HFrEF Elevated HS troponin 14240 ASCVD h/o CABG and s/p PCI Cx [...] infusion 100 mL/hr intravenous Continuous PRN Parul R Jeb, BEHAVIORAL HEALTH CLINICIAN-DIRECTOR HARDWARE dextrose 50 % in water (D50W) 50% solution 25 mL 25 mL intravenous PRN Parul John, BEHAVIORAL HEALTH CLINICIAN-DIRECTOR HARDWARE glucagon HCL injection 1 mg 1 mg intramuscular PRN Parul Hassann, BEHAVIORAL HEALTH CLINICIAN-DIRECTOR HARDWARE heparin (porcine) injection 2,000 Units 2,000 Units intravenous PRN Parul Hassann, BEHAVIORAL HEALTH CLINICIAN-DIRECTOR HARDWARE heparin infusion 25090 units/500 mL in 0.45% NaCl (50 units/mL premix) 300-3,500 Units/hr intravenous Continuous Parul Hassann, BEHAVIORAL HEALTH CLINICIAN-DIRECTOR HARDWARE 16 mL/hr at 10/13/23 0013 800 Units/hr at 10/13/23 0013 magnesium sulfate IVPB 2000 mg/50 mL in iso-osmotic water (40 mg/mL premix) 2,000 mg intravenous PRN Parul R Jeb, BEHAVIORAL HEALTH CLINICIAN-DIRECTOR HARDWARE Or magnesium sulfate IVPB 4000 mg/100 mL in iso-osmotic water (40 mg/mL premix) 4,000 mg intravenous PRN Parul John, BEHAVIORAL HEALTH CLINICIAN-DIRECTOR HARDWARE midodrine (PROAMATINE) tablet 5 mg 5 mg oral Q8H PRN Parul Hassann, BEHAVIORAL HEALTH CLINICIAN-DIRECTOR HARDWARE potassium chloride (K-TAB,KLOR-CON) CR tablet 20-50 mEq 20-50 mEq oral PRN Parul Holder Jeb, BEHAVIORAL HEALTH CLINICIAN-DIRECTOR HARDWARE Or potassium chloride (KAYCIEL) 20 mEq/15 mL solution 20-50 mEq 20-50 mEq oral PRN Parul Hassann, BEHAVIORAL HEALTH CLINICIAN-DIRECTOR HARDWARE potassium chloride IVPB 10 mEq/50 mL in water (0.2 mEq/mL premix) 10 mEq intravenous PRN Parul Holder Jeb, BEHAVIORAL HEALTH CLINICIAN-DIRECTOR HARDWARE Or potassium chloride IVPB 10 mEq/100 mL in water (0.1 mEq/mL premix) 10 mEq intravenous PRN Parul Hassann, BEHAVIORAL HEALTH CLINICIAN-DIRECTOR HARDWARE ranolazine (RANEXA) 12 hr tablet 1,000 mg 1,000 mg oral BID Parul Hassann, BEHAVIORAL HEALTH CLINICIAN-DIRECTOR HARDWARE rosuvastatin (CRESTOR) tablet 20 mg 20 mg oral Daily Parul John, BEHAVIORAL HEALTH CLINICIAN-DIRECTOR HARDWARE sodium phosphate 20 mmol in sodium chloride 0.9 % 250 mL IVPB 20 mmol intravenous PRN Parul Holder Jeb, BEHAVIORAL HEALTH CLINICIAN-DIRECTOR HARDWARE Or sodium phosphate 20 mmol in sodium chloride 0.9 % 100 mL IVPB 20 mmol intravenous PRN Parul R Jeb, BEHAVIORAL HEALTH CLINICIAN-DIRECTOR HARDWARE Or sod phos di, mono-K phos mono (K-PHOS NEUTRAL) 250 mg tablet 2 tablet 2 tablet oral PRN Parul R Jeb, BEHAVIORAL HEALTH CLINICIAN-DIRECTOR HARDWARE sodium chloride 0.9 % infusion 10 mL/hr intravenous Continuous PRN Parul R Jeb, BEHAVIORAL HEALTH CLINICIAN-DIRECTOR HARDWARE sodium chloride 0.9 % infusion 10 mL/hr intravenous Continuous PRN Parul R Jeb, BEHAVIORAL HEALTH CLINICIAN-DIRECTOR HARDWARE sodium chloride 0.9 % infusion 10 mL/hr intravenous Continuous PRN Parul R Jeb, BEHAVIORAL HEALTH CLINICIAN-DIRECTOR HARDWARE Laboratory CBC: BMP: Troponin I Physical Exam [...] This note was completed using a voice production recorder system. Every effort was made to ensure accuracy. However, inadvertent computerized production recorder errors may be present. Images from the original note were not included. [facility] [address] [place] [address] HISTORY & PHYSICAL / CONSULT NOTE Ashvin [...] found to be in CHF with proBNP 71991, HS trop 00929, and K 2.1 which was repleted but [...] Past Medical History: Diagnosis Date Angina pectoris ([facility]) Atherosclerosis of coronary artery bypass graft Atherosclerotic heart disease Coronary angioplasty status Coronary artery disease CVA (cerebral vascular accident) ([facility]) Dyspnea Hyperlipidemia Hypertension Hypotension Other chest pain Stroke ([facility]) Previous Surgical History: Past Surgical History: Procedure Laterality Date CARDIAC CATHETERIZATION Cardiac catheterization N/A 02/15/2023 Performed by Star Espinosa MD at [facility] CARDIAC CATH LABS Cardiac catheterization - LV cors w/graft check N/A 10/25/2020 Performed by Alexi Freeman MD at [facility] CARDIAC CATH LABS Coronary angiogram and graft/[place] N/A 02/15/2023 Performed by Star Espinosa MD at [facility] CARDIAC CATH LABS Coronary angiogram and left ventricular gram/pressure + graft/[place] N/A 10/25/2020 Performed by Alexi Freeman MD at [facility]ARDIAC CATH LAB[facility] Coronary angiogram and left ventricular gram/pressure + graft/[place] N/A 06/18/2016 Performed by Alexi Freeman MD at [facility] CARDIAC CATH LABS CORONARY ANGIOPLASTY 12/08/2020 orbital atherectomy and 2 HARRY to prox and distal Circ, at [facility] per Dr. Madhav Ugalde CORONARY ARTERY BYPASS GRAFT 09/08/2014 HYSTERECTOMY INSERTION LOOP RECORDER 05/24/2016 Percutaneous coronary angioplasty left circumflex N/A 02/15/2023 Performed by Star Espinosa MD at [facility] CARDIAC CATH LABS Stent drug-eluting left circumflex N/A 02/15/2023 Performed by Star Espinosa MD at [facility] CARDIAC CATH LABS Allergies: Allergies Allergen Reactions Aspirin-Dipyridamole aggronox Atorvastatin Hives lipitor Cefadroxil duricef Codeine Fenofibrate Micronized tricor Fluvoxamine luvox Nefazodone serzone Niacin Other reaction(s): Intolerance-unknown Hospital Meds: Current Facility-Administered Medications Medication Dose Route Frequency Provider Last Rate Last Admin calcium gluconate IVPB 1000 mg/50 mL (20 mg/mL premix) 1,000 mg intravenous PRN Parul John BEHAVIORAL HEALTH CLINICIAN-DIRECTOR HARDWARE Or calcium gluconate IVPB 2000 mg/100 mL (20 mg/mL premix) 2,000 mg intravenous PRN Parul John APRN-DIRECTOR HARDWARE Or calcium gluconate 3,000 mg in sodium chloride 0.9 % 100 mL IVPB 3,000 mg intravenous PRN Parul John APRN-DIRECTOR HARDWARE dextrose (GLUTOSE) 40 % gel 15 g 15 g oral PRN Parul John BEHAVIORAL HEALTH CLINICIAN-DIRECTOR HARDWARE dextrose 5 % (D5W) infusion 100 mL/hr intravenous Continuous PRN Parul John BEHAVIORAL HEALTH CLINICIAN-DIRECTOR HARDWARE dextrose 50 % in water (D50W) 50% solution 25 mL 25 mL intravenous PRN Parul John BEHAVIORAL HEALTH CLINICIAN-DIRECTOR HARDWARE glucagon HCL injection 1 mg 1 mg intramuscular PRN Parul John APRN-DIRECTOR HARDWARE heparin (porcine) injection 2,000 Units 2,000 Units intravenous PRN Parul John BEHAVIORAL HEALTH CLINICIAN-DIRECTOR HARDWARE [START ON 10/13/2023] heparin infusion 99616 units/500 mL in 0.45% NaCl (50 units/mL premix) 300-3,500 Units/hr intravenous Continuous Parul John APRN-DIRECTOR HARDWARE magnesium sulfate IVPB 2000 mg/50 mL in iso-osmotic water (40 mg/mL premix) 2,000 mg intravenous PRN Parul John APRN-DIRECTOR HARDWARE Or magnesium sulfate IVPB 4000 mg/100 mL in iso-osmotic water (40 mg/mL premix) 4,000 mg intravenous PRN Parul R Jeb, BEHAVIORAL HEALTH CLINICIAN-DIRECTOR HARDWARE potassium chloride (K-TAB,KLOR-CON) CR tablet 20-50 mEq 20-50 mEq oral PRN Parul R Jeb, BEHAVIORAL HEALTH CLINICIAN-DIRECTOR HARDWARE Or potassium chloride (KAYCIEL) 20 mEq/15 mL solution 20-50 mEq 20-50 mEq oral PRN Parul R Jeb, BEHAVIORAL HEALTH CLINICIAN-DIRECTOR HARDWARE potassium chloride IVPB 10 mEq/50 mL in water (0.2 mEq/mL premix) 10 mEq intravenous PRN Parul R Jeb, BEHAVIORAL HEALTH CLINICIAN-DIRECTOR HARDWARE Or potassium chloride IVPB 10 mEq/100 mL in water (0.1 mEq/mL premix) 10 mEq intravenous PRN Parul R Jeb, BEHAVIORAL HEALTH CLINICIAN-DIRECTOR HARDWARE sodium phosphate 20 mmol in sodium chloride 0.9 % 250 mL IVPB 20 mmol intravenous PRN Parul R Jeb, BEHAVIORAL HEALTH CLINICIAN-DIRECTOR HARDWARE Or sodium phosphate 20 mmol in sodium chloride 0.9 % 100 mL IVPB 20 mmol intravenous PRN Parul R Jeb, BEHAVIORAL HEALTH CLINICIAN-DIRECTOR HARDWARE Or sod phos di, mono-K phos mono (K-PHOS NEUTRAL) 250 mg tablet 2 tablet 2 tablet oral PRN Parul R Jeb, BEHAVIORAL HEALTH CLINICIAN-DIRECTOR HARDWARE sodium chloride 0.9 % infusion 10 mL/hr intravenous Continuous PRN Parul R Jeb, BEHAVIORAL HEALTH CLINICIAN-DIRECTOR HARDWARE sodium chloride 0.9 % infusion 10 mL/hr intravenous Continuous PRN Parul R Jeb, BEHAVIORAL HEALTH CLINICIAN-DIRECTOR HARDWARE sodium chloride 0.9 % infusion 10 mL/hr intravenous Continuous PRN Parul R Jeb, BEHAVIORAL HEALTH CLINICIAN-DIRECTOR HARDWARE Home Meds: Prior to Admission medications Medication [...] mouth in the evening. Tushar Solano Jr., ferrous sulfate 325 (65 FE) mg tablet [...] be continued indefinitely given significant disease in [place] coronary arteries. Optimize medical therapy for coronary [...] be continued indefinitely given significant disease in [place] coronary arteries. Optimize medical therapy for coronary [...] Acute on chronic HFrEF Elevated HS troponin 71838 ASCVD h/o CABG and s/p PCI Cx [...] tablet 81 mg 81 mg oral Daily CHRE Rincon calcium gluconate IVPB 1000 mg/50 mL [...] infusion 100 mL/hr intravenous Continuous PRN Parul R Jeb, BEHAVIORAL HEALTH CLINICIAN-DIRECTOR HARDWARE dextrose 50 % in water (D50W) 50% solution 25 mL 25 mL intravenous PRN Parul John, BEHAVIORAL HEALTH CLINICIAN-DIRECTOR HARDWARE glucagon HCL injection 1 mg 1 mg intramuscular PRN Parul John, BEHAVIORAL HEALTH CLINICIAN-DIRECTOR HARDWARE heparin (porcine) injection 2,000 Units 2,000 Units intravenous PRN Parul Hassann, BEHAVIORAL HEALTH CLINICIAN-DIRECTOR HARDWARE heparin infusion 47738 units/500 mL in 0.45% NaCl (50 units/mL premix) 300-3,500 Units/hr intravenous Continuous Parul Hassann, BEHAVIORAL HEALTH CLINICIAN-DIRECTOR HARDWARE 16 mL/hr at 10/13/23 0013 800 Units/hr at 10/13/23 0013 magnesium sulfate IVPB 2000 mg/50 mL in iso-osmotic water (40 mg/mL premix) 2,000 mg intravenous PRN Parul Hassann, BEHAVIORAL HEALTH CLINICIAN-DIRECTOR HARDWARE Or magnesium sulfate IVPB 4000 mg/100 mL in iso-osmotic water (40 mg/mL premix) 4,000 mg intravenous PRN Parul John, BEHAVIORAL HEALTH CLINICIAN-DIRECTOR HARDWARE midodrine (PROAMATINE) tablet 5 mg 5 mg oral Q8H PRN Parul John, BEHAVIORAL HEALTH CLINICIAN-DIRECTOR HARDWARE potassium chloride (K-TAB,KLOR-CON) CR tablet 20-50 mEq 20-50 mEq oral PRN Parul Hassann, BEHAVIORAL HEALTH CLINICIAN-DIRECTOR HARDWARE Or potassium chloride (KAYCIEL) 20 mEq/15 mL solution 20-50 mEq 20-50 mEq oral PRN Parul Hassann, BEHAVIORAL HEALTH CLINICIAN-DIRECTOR HARDWARE potassium chloride IVPB 10 mEq/50 mL in water (0.2 mEq/mL premix) 10 mEq intravenous PRN Parul Hassann, BEHAVIORAL HEALTH CLINICIAN-DIRECTOR HARDWARE Or potassium chloride IVPB 10 mEq/100 mL in water (0.1 mEq/mL premix) 10 mEq intravenous PRN Parul Hassann, BEHAVIORAL HEALTH CLINICIAN-DIRECTOR HARDWARE ranolazine (RANEXA) 12 hr tablet 1,000 mg 1,000 mg oral BID Parul Hassann, BEHAVIORAL HEALTH CLINICIAN-DIRECTOR HARDWARE rosuvastatin (CRESTOR) tablet 20 mg 20 mg oral Daily Parul John, BEHAVIORAL HEALTH CLINICIAN-DIRECTOR HARDWARE sodium phosphate 20 mmol in sodium chloride 0.9 % 250 mL IVPB 20 mmol intravenous PRN Parul Hassann, BEHAVIORAL HEALTH CLINICIAN-DIRECTOR HARDWARE Or sodium phosphate 20 mmol in sodium chloride 0.9 % 100 mL IVPB 20 mmol intravenous PRN Parul R Jeb, BEHAVIORAL HEALTH CLINICIAN-DIRECTOR HARDWARE Or sod phos di, mono-K phos mono (K-PHOS NEUTRAL) 250 mg tablet 2 tablet 2 tablet oral PRN Parul R Jeb, BEHAVIORAL HEALTH CLINICIAN-DIRECTOR HARDWARE sodium chloride 0.9 % infusion 10 mL/hr intravenous Continuous PRN Parul R Jeb, BEHAVIORAL HEALTH CLINICIAN-DIRECTOR HARDWARE sodium chloride 0.9 % infusion 10 mL/hr intravenous Continuous PRN Parul R Jeb, BEHAVIORAL HEALTH CLINICIAN-DIRECTOR HARDWARE sodium chloride 0.9 % infusion 10 mL/hr intravenous Continuous PRN Parul R Jeb, BEHAVIORAL HEALTH CLINICIAN-DIRECTOR HARDWARE Laboratory CBC: BMP: Troponin I Physical Exam [...] This note was completed using a voice production recorder system. Every effort was made to ensure accuracy. However, inadvertent computerized production recorder errors may be present. documented in this encounter [facility] 10-14-2023 Nurse Note Adjusted CathPCI Bleeding Event [...] is an appropriate candidate for the procedure. [facility] 10-13-2023 Plan of care note Problem: Pain Goal: Patient goal is pain score less than 4, able to rest, and participant in treatment plan as appropriate Description: INTERVENTIONS: 1. Encourage patient or legal corporate sales representative to report early pain and [...] per policy 9. Teach patient or legal corporate sales representative interventions for comforting Outcome: Progressing [...] at the bedside 7. Instruct patient/ patient corporate sales representative about use of safety devices 8. Include patient/ patient corporate sales representative in decisions related to safety [...] hygiene technique 7. Identify and instruct patient/patient corporate sales representative in use of appropriate isolation precautions for identified infection/symptoms 8. Provide and discuss with patient/patient corporate sales representative on educational MDRO sheet 9. Encourage and monitor nutritional status daily and consult leather production worker if indicated 10. Implement neutropenic guidelines as needed 11. Review exposure to history of communicable disease and recent travel history on admission 12. Encourage annual influenza vaccine 13. Encourage pneumonia vaccine Outcome: Progressing Note: Evaluation of progress towards goal: Patient afebrile and WBC of 5.3. Will continue to monitor for signs of infection Problem: Knowledge Deficit Goal: Patient/patient corporate sales representative demonstrates understanding of disease process, [...] develop effective communication strategies 4. Include patient/patient corporate sales representative in decisions related to communication [...] supplement as ordered 13. Collaborate with clinical leather production worker 14. Include patient/ patient's corporate sales representative in decisions related to nutrition Outcome: Progressing Note: Evaluation of progress towards goal: Collaborating with interdisciplinary team to ensure adequate nutritional intake. Problem: Moderate - High Risk Fall Score Description: Beal Fall Score of =/> 25 or indicated by [facility] Re[facility] Assessment Goal: Patient should be free from fall Description: Interventions: 1. [place] to environment 2. Hourly rounds addressing the [...] non-skid footwear 11. Teach patient and patient corporate sales representative to maintain environment for safety [...] (cane, walker) within reach 19. Request patient corporate sales representative bring adaptive equipment/mobility aids from home or obtain and provide as needed 20. Consult pharmacy regarding effects of med's affecting mobility, cognition, and alternatives 21. Obtain physician order for PT if risk factors associated with mobility are present 22. Obtain physician order for OT as appropriate 23. Utilize diversional activities 24. Educate patient and patient corporate sales representative how to maintain a safe environment during visitation times (notify nurse prior to leaving bedside) 25. Consider appropriateness of medical or non-product manager medical device 26. Set up voiding schedule as appropriate (every 2 hours) Outcome: Progressing Note: Evaluation of progress towards goal: Area clear of hazards. Bed locked and in lowest position. Side rails up. Hourly rounding complete. Pt remains free from falls at this time. [facility] 10-13-2023 Plan of care note Problem: Pain Goal: Patient goal is pain score less than 4, able to rest, and participant in treatment plan as appropriate Description: INTERVENTIONS: 1. Encourage patient or legal corporate sales representative to report early pain and [...] per policy 9. Teach patient or legal corporate sales representative interventions for comforting Outcome: Progressing [...] at the bedside 7. Instruct patient/ patient corporate sales representative about use of safety devices 8. Include patient/ patient corporate sales representative in decisions related to safety [...] hygiene technique 7. Identify and instruct patient/patient corporate sales representative in use of appropriate isolation precautions for identified infection/symptoms 8. Provide and discuss with patient/patient corporate sales representative on educational MDRO sheet 9. Encourage and monitor nutritional status daily and consult leather production worker if indicated 10. Implement neutropenic guidelines as needed 11. Review exposure to history of communicable disease and recent travel history on admission 12. Encourage annual influenza vaccine 13. Encourage pneumonia vaccine Outcome: Progressing Note: Evaluation of progress towards goal: Pt is afebrile at this time. Problem: Knowledge Deficit Goal: Patient/patient corporate sales representative demonstrates understanding of disease process, [...] be free from fall Description: Interventions: 1. [place] to environment 2. Hourly rounds addressing the [...] non-skid footwear 11. Teach patient and patient corporate sales representative to maintain environment for safety [...] (cane, walker) within reach 19. Request patient corporate sales representative bring adaptive equipment/mobility aids from home or obtain and provide as needed 20. Consult pharmacy regarding effects of med's affecting mobility, cognition, and alternatives 21. Obtain physician order for PT if risk factors associated with mobility are present 22. Obtain physician order for OT as appropriate 23. Utilize diversional activities 24. Educate patient and patient corporate sales representative how to maintain a safe environment during visitation times (notify nurse prior to leaving bedside) 25. Consider appropriateness of medical or non-product manager medical device 26. Set up voiding schedule as appropriate (every 2 hours) Outcome: Progressing Note: Evaluation of progress towards goal: Pt is free from falls at this time. [facility] Progress note Formatting of t his note might be different from the original. Pt comfortable. No chest pain. No sob on 2 L ECG without sig ST abn Tr 13 Continues on heparin/DAPT Ionized mg .24 NSTEMI 2. Acute on chronic heart failure Keep NPO as LHC may be considered Supplement mg before diuresing [facility] 10-13-2023 Plan of care note Problem: Pain Goal: Patient goal is pain score less than 4, able to rest, and participant in treatment plan as appropriate Description: INTERVENTIONS: 1. Encourage patient or legal corporate sales representative to report early pain and [...] per policy 9. Teach patient or legal corporate sales representative interventions for comforting Outcome: Progressing [...] at the bedside 7. Instruct patient/ patient corporate sales representative about use of safety devices 8. Include patient/ patient corporate sales representative in decisions related to safety [...] hygiene technique 7. Identify and instruct patient/patient corporate sales representative in use of appropriate isolation precautions for identified infection/symptoms 8. Provide and discuss with patient/patient corporate sales representative on educational MDRO sheet 9. Encourage and monitor nutritional status daily and consult leather production worker if indicated 10. Implement neutropenic guidelines as needed 11. Review exposure to history of communicable disease and recent travel history on admission 12. Encourage annual influenza vaccine 13. Encourage pneumonia vaccine Outcome: Progressing Note: Evaluation of progress towards goal: Pt afebrile and no outward signs of infection during shift. Problem: Knowledge Deficit Goal: Patient/patient corporate sales representative demonstrates understanding of disease process, [...] develop effective communication strategies 4. Include patient/patient corporate sales representative in decisions related to communication [...] Collaborate with ancillary departments 14. Include patient/patient corporate sales representative in decisions related to anxiety [...] providing care 6. Collaborate with pastoral/spiritual care, psychiatric social worker supervisor, mental health counselor as needed. 7. Instruct patient on diversional activities such as physical activity, distraction, and deep breathing exercises to assist with coping 8. Involve patient's corporate sales representative in care Outcome: Progressing Note: [...] supplement as ordered 13. Collaborate with clinical leather production worker 14. Include patient/ patient's corporate sales representative in decisions related to nutrition [...] Score of =/> 25 or indicated by [facility] Re[facility] Assessment Goal: Patient should be free from fall Description: Interventions: 1. Mackay to environment 2. Hourly rounds addressing the [...] non-skid footwear 11. Teach patient and patient corporate sales representative to maintain environment for safety [...] (cane, walker) within reach 19. Request patient corporate sales representative bring adaptive equipment/mobility aids from home or obtain and provide as needed 20. Consult pharmacy regarding effects of med's affecting mobility, cognition, and alternatives 21. Obtain physician order for PT if risk factors associated with mobility are present 22. Obtain physician order for OT as appropriate 23. Utilize diversional activities 24. Educate patient and patient corporate sales representative how to maintain a safe environment during visitation times (notify nurse prior to leaving bedside) 25. Consider appropriateness of medical or non-product manager medical device 26. Set up voiding schedule as appropriate (every 2 hours) Outcome: Progressing Note: Evaluation of progress towards goal: No signs of falls during shift. [facility] 10-12-2023 History and physical note Images from the original note were not included. [facility] [address] [place] [address] HISTORY & PHYSICAL / CONSULT NOTE Ashvin [...] found to be in CHF with proBNP 07027, HS trop 08579, and K 2.1 which was repleted but [...] started on Heparin gtt and transferred to [facility]. She states she feels better now and denies CP SOB. Previous Medical History: Past Medical History: Diagnosis Date Angina pectoris ([facility]) Atherosclerosis of coronary artery bypass graft Atherosclerotic heart disease Coronary angioplasty status Coronary artery disease CVA (cerebral vascular accident) ([facility]) Dyspnea Hyperlipidemia Hypertension Hypotension Other chest pain Stroke ([facility]) Previous Surgical History: Past Surgical History: Procedure Laterality Date CARDIAC CATHETERIZATION Cardiac catheterization N/A 02/15/2023 Performed by Star Espinosa MD at [facility] CARDIAC CATH LABS Cardiac catheterization - LV cors w/graft check N/A 10/25/2020 Performed by Alexi Freeman MD at [facility] CARDIAC CATH LABS Coronary angiogram and graft/[place] N/A 02/15/2023 Performed by Star Espinosa MD at [facility] CARDIAC CATH LABS Coronary angiogram and left ventricular gram/pressure + graft/[place] N/A 10/25/2020 Performed by Alexi Freeman MD at [facility] CARDIAC CATH LABS Coronary angiogram and left ventricular gram/pressure + graft/[place] N/A 06/18/2016 Performed by Alexi Freeman MD at [facility] CARDIAC CATH LABS CORONARY ANGIOPLASTY 12/08/2020 orbital atherectomy and 2 HARRY to prox and distal Circ, at [facility] per Dr. Madhav Ugalde CORONARY ARTERY BYPASS GRAFT 09/08/2014 HYSTERECTOMY INSERTION LOOP RECORDER 05/24/2016 Percutaneous coronary angioplasty left circumflex N/A 02/15/2023 Performed by Star Espinosa MD at [facility] CARDIAC CATH LABS Stent drug-eluting left circumflex N/A 02/15/2023 Performed by Star Espinosa MD at [facility] CARDIAC CATH LABS Allergies: Allergies Allergen Reactions Aspirin-Dipyridamole aggronox Atorvastatin Hives lipitor Cefadroxil duricef Codeine Fenofibrate Micronized tricor Fluvoxamine luvox Nefazodone serzone Niacin Other reaction(s): Intolerance-unknown Hospital Meds: Current Facility-Administered Medications Medication Dose Route Frequency Provider Last Rate Last Admin calcium gluconate IVPB 1000 mg/50 mL (20 mg/mL premix) 1,000 mg intravenous PRN Parul R Jeb, BEHAVIORAL HEALTH CLINICIAN-DIRECTOR HARDWARE Or calcium gluconate IVPB 2000 mg/100 mL (20 mg/mL premix) 2,000 mg intravenous PRN Parul R Jeb, BEHAVIORAL HEALTH CLINICIAN-DIRECTOR HARDWARE Or calcium gluconate 3,000 mg in sodium chloride 0.9 % 100 mL IVPB 3,000 mg intravenous PRN Parul R Jeb, BEHAVIORAL HEALTH CLINICIAN-DIRECTOR HARDWARE dextrose (GLUTOSE) 40 % gel 15 g 15 g oral PRN Parul R Jeb, BEHAVIORAL HEALTH CLINICIAN-DIRECTOR HARDWARE dextrose 5 % (D5W) infusion 100 mL/hr intravenous Continuous PRN Parul R Jeb, BEHAVIORAL HEALTH CLINICIAN-DIRECTOR HARDWARE dextrose 50 % in water (D50W) 50% solution 25 mL 25 mL intravenous PRN Parul R Jeb, BEHAVIORAL HEALTH CLINICIAN-DIRECTOR HARDWARE glucagon HCL injection 1 mg 1 mg intramuscular PRN Parul R Jeb, BEHAVIORAL HEALTH CLINICIAN-DIRECTOR HARDWARE heparin (porcine) injection 2,000 Units 2,000 Units intravenous PRN Parul R Jeb, BEHAVIORAL HEALTH CLINICIAN-DIRECTOR HARDWARE [START ON 10/13/2023] heparin infusion 89678 units/500 mL in 0.45% NaCl (50 units/mL premix) 300-3,500 Units/hr intravenous Continuous Parul Hassann, BEHAVIORAL HEALTH CLINICIAN-DIRECTOR HARDWARE magnesium sulfate IVPB 2000 mg/50 mL in iso-osmotic water (40 mg/mL premix) 2,000 mg intravenous PRN Parul R Jeb, BEHAVIORAL HEALTH CLINICIAN-DIRECTOR HARDWARE Or magnesium sulfate IVPB 4000 mg/100 mL in iso-osmotic water (40 mg/mL premix) 4,000 mg intravenous PRN Parul R Jeb, BEHAVIORAL HEALTH CLINICIAN-DIRECTOR HARDWARE potassium chloride (K-TAB,KLOR-CON) CR tablet 20-50 mEq 20-50 mEq oral PRN Parul R Jeb, BEHAVIORAL HEALTH CLINICIAN-DIRECTOR HARDWARE Or potassium chloride (KAYCIEL) 20 mEq/15 mL solution 20-50 mEq 20-50 mEq oral PRN Parul R Jeb, BEHAVIORAL HEALTH CLINICIAN-DIRECTOR HARDWARE potassium chloride IVPB 10 mEq/50 mL in water (0.2 mEq/mL premix) 10 mEq intravenous PRN Parul R Jeb, BEHAVIORAL HEALTH CLINICIAN-DIRECTOR HARDWARE Or potassium chloride IVPB 10 mEq/100 mL in water (0.1 mEq/mL premix) 10 mEq intravenous PRN Parul R Jeb, BEHAVIORAL HEALTH CLINICIAN-DIRECTOR HARDWARE sodium phosphate 20 mmol in sodium chloride 0.9 % 250 mL IVPB 20 mmol intravenous PRN Parul R Jeb, BEHAVIORAL HEALTH CLINICIAN-DIRECTOR HARDWARE Or sodium phosphate 20 mmol in sodium chloride 0.9 % 100 mL IVPB 20 mmol intravenous PRN Parul R Jeb, BEHAVIORAL HEALTH CLINICIAN-DIRECTOR HARDWARE Or sod phos di, mono-K phos mono (K-PHOS NEUTRAL) 250 mg tablet 2 tablet 2 tablet oral PRN Parul R Jeb, BEHAVIORAL HEALTH CLINICIAN-DIRECTOR HARDWARE sodium chloride 0.9 % infusion 10 mL/hr intravenous Continuous PRN Parul R Jeb, BEHAVIORAL HEALTH CLINICIAN-DIRECTOR HARDWARE sodium chloride 0.9 % infusion 10 mL/hr intravenous Continuous PRN Parul R Jeb, BEHAVIORAL HEALTH CLINICIAN-DIRECTOR HARDWARE sodium chloride 0.9 % infusion 10 mL/hr intravenous Continuous PRN Parul R Jeb, BEHAVIORAL HEALTH CLINICIAN-DIRECTOR HARDWARE Home Meds: Prior to Admission medications Medication [...] be continued indefinitely given significant disease in [place] coronary arteries. Optimize medical therapy for coronary [...] be continued indefinitely given significant disease in [place] coronary arteries. Optimize medical therapy for coronary [...] Acute on chronic HFrEF Elevated HS troponin 84586 ASCVD h/o CABG and s/p PCI Cx 03/05 Ischemic cardiomyopathy EF 35-40% Hypokalemia Chronic hypotension on midodrine Dyslipidemia Trend troponins Recheck electrolytes IV diuresis Continue Heparin gtt Continue DAPT Unable to titrate GDMT given HOTN Recheck echo PARUL JOHN, CHER Quintero 10/13/23 0016 [facility], LENNY [...] 81 mg 81 mg oral Daily Parul John APRN-SUNIL calcium gluconate IVPB 1000 mg/50 mL (20 mg/mL premix) 1,000 mg intravenous PRN Parul John APRN-SUNIL Or calcium gluconate IVPB 2000 mg/100 mL (20 mg/mL premix) 2,000 mg intravenous PRN Parul John APRN-SUNIL Or calcium gluconate 3,000 mg in sodium chloride 0.9 % 100 mL IVPB 3,000 mg intravenous PRN Parul John APRN-SUNIL clopidogreL (PLAVIX) tablet 75 mg 75 mg oral Daily Parul John APRN-SUNIL dextrose (GLUTOSE) 40 % gel 15 g 15 g oral PRN Parul John APRN-SUNIL dextrose 5 % (D5W) infusion 100 mL/hr intravenous Continuous PRN Parul John APRN-SUNIL dextrose 50 % in water (D50W) 50% solution 25 mL 25 mL intravenous PRN Parul John APRN-SUNIL glucagon HCL injection 1 mg 1 mg intramuscular PRN Parul John APRN-SUNIL heparin (porcine) injection 2,000 Units 2,000 Units intravenous PRN Parul John APRN-DIRECTOR HARDWARE heparin infusion 19881 units/500 mL in 0.45% NaCl (50 units/mL premix) 300-3,500 Units/hr intravenous Continuous Parul John APRN-DIRECTOR HARDWARE 16 mL/hr at 10/13/23 0013 800 Units/hr at 10/13/23 0013 magnesium sulfate IVPB 2000 mg/50 mL in iso-osmotic water (40 mg/mL premix) 2,000 mg intravenous PRN Parul R Jeb, BEHAVIORAL HEALTH CLINICIAN-DIRECTOR HARDWARE Or magnesium sulfate IVPB 4000 mg/100 mL in iso-osmotic water (40 mg/mL premix) 4,000 mg intravenous PRN Parul R Jeb, BEHAVIORAL HEALTH CLINICIAN-DIRECTOR HARDWARE midodrine (PROAMATINE) tablet 5 mg 5 mg oral Q8H PRN Parul R Jeb, BEHAVIORAL HEALTH CLINICIAN-DIRECTOR HARDWARE potassium chloride (K-TAB,KLOR-CON) CR tablet 20-50 mEq 20-50 mEq oral PRN Parul R Jeb, BEHAVIORAL HEALTH CLINICIAN-DIRECTOR HARDWARE Or potassium chloride (KAYCIEL) 20 mEq/15 mL solution 20-50 mEq 20-50 mEq oral PRN Parul R Jeb, BEHAVIORAL HEALTH CLINICIAN-DIRECTOR HARDWARE potassium chloride IVPB 10 mEq/50 mL in water (0.2 mEq/mL premix) 10 mEq intravenous PRN Parul R Jeb, BEHAVIORAL HEALTH CLINICIAN-DIRECTOR HARDWARE Or potassium chloride IVPB 10 mEq/100 mL in water (0.1 mEq/mL premix) 10 mEq intravenous PRN Parul R Jeb, BEHAVIORAL HEALTH CLINICIAN-DIRECTOR HARDWARE ranolazine (RANEXA) 12 hr tablet 1,000 mg 1,000 mg oral BID Parul Holder Jeb, BEHAVIORAL HEALTH CLINICIAN-DIRECTOR HARDWARE rosuvastatin (CRESTOR) tablet 20 mg 20 mg oral Daily Parul R Jeb, BEHAVIORAL HEALTH CLINICIAN-DIRECTOR HARDWARE sodium phosphate 20 mmol in sodium chloride 0.9 % 250 mL IVPB 20 mmol intravenous PRN Parul R Jeb, BEHAVIORAL HEALTH CLINICIAN-DIRECTOR HARDWARE Or sodium phosphate 20 mmol in sodium chloride 0.9 % 100 mL IVPB 20 mmol intravenous PRN Parul R Jeb, BEHAVIORAL HEALTH CLINICIAN-DIRECTOR HARDWARE Or sod phos di, mono-K phos mono (K-PHOS NEUTRAL) 250 mg tablet 2 tablet 2 tablet oral PRN Parul R Jeb, BEHAVIORAL HEALTH CLINICIAN-DIRECTOR HARDWARE sodium chloride 0.9 % infusion 10 mL/hr intravenous Continuous PRN Parul R Jeb, BEHAVIORAL HEALTH CLINICIAN-DIRECTOR HARDWARE sodium chloride 0.9 % infusion 10 mL/hr intravenous Continuous PRN Parul R Jeb, BEHAVIORAL HEALTH CLINICIAN-DIRECTOR HARDWARE sodium chloride 0.9 % infusion 10 mL/hr intravenous Continuous PRN Parul John, BEHAVIORAL HEALTH CLINICIAN-DIRECTOR HARDWARE Laboratory CBC: BMP: Troponin I Physical Exam [...] This note was completed using a voice production recorder system. Every effort was made to ensure accuracy. However, inadvertent computerized production recorder errors may be present. [employer] Work Phone: 10-12-2023 History of Present illness Narrative Images from the original note were not included. [facility] Significant Event Note I am on-call covering for my group today. I am at [facility]. This patient presented to the ER at [facility]. I was paged, called back promptly, spoke to ER provider, reviewed EMR, discussed case, provided recommendations as detailed below. Subjective: 67 year old patient presented to the ER at [facility] with generalized weakness and malaise and shortness [...] of 35-40% Atherosclerotic heart disease of the [place] coronary arteries with stable angina pectoris History of CABG and subsequent HARRY Profound hypokalemia 2.1 in the ER at [facility] receiving replacements COVID test was negative at [place] [facility] Given profound hypokalemia and risk for spontaneous malignant arrhythmia recommend admission to the ICU or CCU Access transfer team is working on the transfer arrangements and logistics as well as bed availability here at [place] Recommend to the ER that patient needs to receive ICU dosing oral and IV potassium to replenish her total body potassium depletion She is on torsemide at home and she will need to be on a potassium supplement She will receive anti heart failure therapies while here in [facility] as well as medical therapy for CAD and cardiomyopathy I discussed with ER provider and access transfer team as well as updated the night team covering here at [facility] and the arrangements have been made for patient to be transferred pending the logistics and bed availability Please contact our cardiology service if any changes in patient's status overnight Thank you Jonathan Pizarro DO, FACC, FACOI This note was completed using a voice production recorder system. Every effort was made to ensure accuracy. However, inadvertent computerized production recorder errors may be present. documented in this encounter [facility] Telephone encounter Note Patient left message [...] not need a different prescription sent in. [facility] 08-22-2023 Miscellaneous Notes Patient left [...] prescription sent in. documented in this encounter [facility] 08-21-2023 History of Present illness Narrative Reason [...] Bilateral FRANCIS/PVR study performed on 05-29-2023 at [facility] showed: FRANCIS is falsely elevated suggesting medial [...] decisions I made. documented in this encounter [facility] 08-04-2023 Evaluation note Encounter Date Diagnosis Assessment Notes Jul, PAD (peripheral artery disease) (ICD-10 - I73.9) We reviewed her noninvasive arterial studies obtained at outside facility and [facility] in [place] which indicate mild to moderate arterial disease [...] - I96) Jul, Non-smoker (ICD-10 - Z78.9) [employer] Other [id number] History of Present illness Narrative* Kimberly Wright - 06/25/2023 10:40 AM EST Ortho Nurse - Established Patient Intake Room#: 1 --- QA TESTER for Left knee/leg pain. Hip surgery was [...] 06/25/2023 11:28 AM Patient: Ashvin Rene MR#: [id number] : 1955 Age: 67 y.o. Referring Physician: [...] capsule by mouth daily. Ergocalciferol 1.25 MG (44041 UT) capsule Take 1 capsule by mouth [...] 06/25/2023 11:28 AM Patient: Ashvin Rene MR#: [id number] : 1955 Age: 67 y.o. Referring Physician: [...] [x]cane, []bracing Are you followed by a top lift compressor? [x] [] Name: Dr. Ryan Gordon Are [...] capsule by mouth daily. Ergocalciferol 1.25 MG (02064 UT) capsule Take 1 capsule by mouth [...] GASTRIC BYPASS 2002 HYSTERECTOMY 1979 AORTIC STENT History reviewed. No [...] daily., Disp: , Rfl: Ergocalciferol 1.25 MG (07572 UT) capsule, Take 1 capsule by mouth [...] Rfl: No Known [facility]ies [facility]* Encounter Date Diagnosis Assessment Notes [...] - S60.221A) May, Other Skin wound mate rial was printed [employer] Other 09-30-2021 Evaluation note* Encounter Date Diagnosis Assessment Notes Treatment Notes Treatment Clinical Notes Mar, Nausea & vomiting (ICD-10 - R11.2) Nausea and vomiting: adult material was printed Mar, Epigastric pain (ICD-10 - R10.13) [employer] Other 05-28-2021 NoteHNO ID: [id number] Author: Jaimee Pierce RN Service: Care Management [...] 08, 2020 TIME: 10:58 AM PAGER/CONTACT #: [phone] NoteHNO ID: [id number] Author: Jaimee Pierce RN Service: Care Management [...] 08, 2020 TIME: 9:57 AM PAGER/CONTACT #: [phone]-2021 NoteHNO ID: [id number] Author: Nay Joseph MD Service: ? Author [...] No further targets for coronary revascularization. 2. snf DAPT STAFF PHYSICIAN: Dirk Joseph MD DATE OF SERVICE: 12/07/2020 TIME OF SERVICE: 6:19 PM (Procedure performed with Dr. Milli Foster and Dr. Erika Kohler)[facility]05-27-[facility] NoteProcedure (DIOMEDES) ASHVIN RENE ([id number]) 1955 F Date Time Provider Department 12/07/20 [...] Could not cross stenoses with [employer] or [employer] flex 135 mm microcatheters. 7Fr Telescope guide [...] No further targets for coronary revascularization. 2. 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 Milli Foster and Dr. Erika Kohler) Allergies As of Date: 12/07/2020 Noted Allergy Reaction CODEINE 11/24/2020 1 - Mental Status Change 4 - Hives Date Reviewed: 11/24/2020 Reviewed by: Demetra Guadalupe RN - Fully Assessed Primary Visit Diagnosis:Coronary artery disease of [place] artery of [place] heart with stable angina pectoris (HCC) [I25.118] [...] 12/07/2020 Noted Resolved Coronary artery disease of [place] artery of otilio*11/24/2020 S/P CABG (coronary artery bypass graft) [Z95.1] 11/24/2020 Pure hypercholesterolemia [E78.00] (more content not included)... [facility]-27-[facility]21 NoteHNO ID: [id number] Author: Milli Foster MD Service: Cardiovascular Medicine [...] Guide Catheter(s): 7Fr XB 3.5, MPB Guidewire(s): garth drummond wire Other Equipment: CSI Hemostasis: Manual Anticoagulation: [...] Milli Foster MD Fellow, Interventional Cardiology Pager: [phone] 12/08/2020 11:34 [facility]05-14-2021 NoteHNO ID: [id number] Author: Nay Joseph MD Service: ? Author Type: Physician Type: Progress Notes Filed: 11/29/2020 7:54 AM Note Text: [facility] [place] [facility] Department of Cardiovascular Medicine SECTION OF INTERVENTIONAL CARDIOLOGY OUTPATIENT VISIT DATE November 23, 2020 OUTPATIENT VISIT TYPE NEW PRIMARY CARE PHYSICIAN: Tushar Solano Jr DO (Dr) [address] [place] [address] REFERRING PHYSICIAN: Waqas Mabry MD [address] [place] [address] [facility] [address] CHIEF COMPLAINT: No chief complaint on file. [...] resolved after CABG) 2015 CVA and (?) [place] 05/24/16 Echo ? Normal left ventricular end-diastolic [...] area of anterior/anterolateral (more content not included)... [facility] Miscellaneous Notes* Telephone Encounter - Ashvin Diaz - 11/09/2020 10:10 AM EDT Patient: Ashvin Rene Date of : 1955 Patient phone number: [phone] Referring Provider for the encounter: Dr Waqas Mabry Requesting Provider: Cardiology Reason for requesting visit (RFV/signs and symptoms/diagnosis): 2nd Opinion - Severe CAD Person calling: caregiver: ERIC Return call to: self Medical Records/Insurance Card scanned into [employer]: Yes Comments: N/A documented in this encounterRiverview Health InstituteEvaluation noteNo InformationNosaint joseph hospital west makerSQR Other Evaluation noteNo assessment information available [facility] Work Phone: Evaluation note* Diagnosis Left knee pain, unspecified chronicity- Primary [facility] Diagnosis 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)- Primary Gangrene (CMS/HCC) Gangrene Pain in toe of right foot Pain in soft tissues of limb Arteriosclerosis of arteries of extremities (CMS/HCC) [facility] Diagnosis Stenosis of left carotid artery Occlusion and stenosis of carotid artery without mention of cerebral infarction Stenosis of left carotid artery- Primary Occlusion and stenosis of carotid artery without mention of cerebral infarction [facility] Diagnosis Decompensated heart failure ([facility])- Primary NSTEMI (non-ST elevated myocardial infarction) ([facility]) Acute myocardial infarction, subendocardial infarction, episode of care unspecified Decompensated heart failure ([facility]) NSTEMI (non-ST elevated myocardial infarction) ([facility]) Acute myocardial infarction, subendocardial infarction, episode of care unspecified NSTEMI (non-ST elevated myocardial infarction) ([facility]) Acute myocardial infarction, subendocardial infarction, episode of care unspecified [facility] Diagnosis Sensorineural hearing loss (SNHL) of both ears- Primary Tinnitus, bilateral Unspecified tinnitus documented in this encounter [facility]* Diagnosis Asymmetric SNHL (sensorineural hearing loss)- Primary Sensorineural hearing loss, asymmetrical documented in this encounter [facility] Healthcare[facility]* Diagnosis Chronic coronary artery disease- Primary Coronary atherosclerosis of unspecified type of vessel, [place] or graft Ischemic cardiomyopathy Other specified forms of chronic ischemic heart disease Hx of CABG Postsurgical aortocoronary bypass status Chronic HFrEF (heart failure with reduced ejection fraction) ([facility]) [facility] Diagnosis PAD (peripheral artery disease) ([facility])- Primary Unspecified peripheral vascular disease [facility]* Diagnosis Asymmetric SNHL (sensorineural hearing loss)- Primary Sensorineural hearing loss, asymmetrical documented in this encounter [facility] HealthcareHistory general Narrative - Reported* Type Description Date Medical History Cholesterol Medical History heart disease Medical History hypertension Surgical History left hip Surgical History stomach Surgical History heart stent Surgical History bypass Surgical History gastric bypass Hospitalization History see above [employer] Other InstructionsNot on filedocumented in this encounter [facility] on filedocumented in this encounter [facility]ructionsNot on filedocumented in this encounter [facility] SystemInstructionsNot on filedocumented in this encounter [facility] SystemInstructionsNot on filedocumented in this encounter [facility] SystemInstructionsNot on filedocumented in this encounter [facility] SystemReason for referral (narrative)* Consultation (Routine) - Pending Review Specialty Diagnoses / Procedures Referred By Contac t Referred To Contact Cardiology Diagnoses NSTEMI (non-ST elevated myocardial infarction) ([facility]) Decompensated heart failure ([facility]) Kallie Roman MD [address], [address] [place] [id number] [facility] Cardiology [address] [place] [address] Referral ID Status Reason Start Date Expiration Date Visits Requested Visits Authorized [id number] Pending Review Specialty Services Required 10/15/2023 10/14/2024 1 1 * Misc (Routine) - Pending Review Specialty Diagnoses / Procedures Referred By Contac t Referred To Contact Procedures Discharge Follow-Up Kallie Roman MD [address], [address] [place] [phone] Referral ID Status Reason Start Date Expiration Date V isits Requested Visits Authorized [id number] Pending Review 10/15/2023 10/14/2024 1 1 * Misc (Routine) - Pending Review Specialty Diagnoses / Procedures Referred By Contac t Referred To Contact Diagnoses NSTEMI (non-ST elevated myocardial infarction) ([facility]) Decompensated heart failure ([facility]) Procedures Follow-up with primary care provider Kallie Roman MD [address], [address] [place] [phone] Referral ID Status Reason Start Date Expiration Date V isits Requested Visits Authorized [id number] Pending Review 10/15/2023 10/14/2024 1 1 * Misc (Routine) - Pending Review Specialty Diagnoses / Procedures Referred By Contac t Referred To Contact Procedures No dressing needed Kallie Roman MD [address] [place] [address] Referral ID Status Reason Start Date Expiration Date V isits Requested Visits Authorized [id number] Pending Review 10/15/2023 10/14/2024 1 1 * Misc (Routine) - Pending Review Specialty Diagnoses / Procedures Referred By Contac t Referred To Contact Procedures Adult diet Kallie Roman MD [address] [place] [address] Referral ID Status Reason Start Date Expiration Date V isits Requested Visits Authorized [id number] Pending Review 10/15/2023 10/14/2024 1 1 [facility] Advance Directives Advance Directive Response Recorded Date/ Time Advance Directives No June 11:08am Latest Code Status on File Code Status Date Activated Date Inactivated Comments Full Code 10/12/2023 11:33 PM 10/15/2023 5:33 PM Date Activated Date Inactivated Comments 10/12/2023 11:33 PM 10/15/2023 5:33 PM Date Activated Date Inactivated Comments 10/12/2023 11:33 PM 10/15/2023 5:33 PM Chief Complaint and Reason for Visit Chief Complaint Right Eye Cataract Left Eye Cataract Chief Complaint PAD w/ Gangrene Righ t Great Toe Assessments No Assessments Information Available Family History Relationship Condition Age at Onset Recorded Date/T [...] worsening of your eyesight. Please call your brand sales consultant during normal business hours. If after business hours call Dr. Deng Humphreys at his cell [phone] or his office [phone]. Summary Purpose Reason for Referral Specialty Diagnoses / Procedures Referred By Teofilo serrato Referred To Contact Diagnoses PAD (peripheral artery disease) ([facility]) Procedures Vas art doppler lwr limited single Genet Small DO [address] [facility] [address] [place] [address] Referral ID Status Reason Start Date Expiration Date V isits Requested Visits Authorized [id number] Pending Review 10/16/2023 10/15/2024 1 1 Specialty Diagnoses / Procedures Referred By Teofilo t Referred To Contact Diagnoses PAD (peripheral artery disease) ([facility]) Procedures Vas art duplex lwr bilateral Genet Small DO [address] [place] [address] Referral ID Status Reason Start Date Expiration Date V isits Requested Visits Authorized [id number] Pending Review 10/16/2023 10/15/2024 1 1 Specialty Diagnoses / Procedures Referred By Contac t Referred To Contact Diagnoses Stenosis of left carotid artery Procedures Vas carotid duplex bilateral Mariama Veras MD [address] [place] [address] [facility] [address] [place] [address] Phone: [phone] Referral ID Status Reason Start Date Expiration Date Visits Re quested Visits Authorized [id number] Closed 10/06/2023 10/05/2024 1 1 Specialty Diagnoses / Procedures Referred By Contac t Referred To Contact Diagnoses Left knee pain, unspecified chronicity Norman Braga MD [address] [place] [phone] Referral ID Status Reason Start Date Expiration Date V isits Requested Visits Authorized [id number] New Request 06/25/2023 07/19/2024 1 1 Scheduling Instructions . Specialty Diagnoses / Procedures Referred By Contac t Referred To Contact Diagnoses Left knee pain, unspecified chronicity Procedures XR KNEE LEFT 4+ VIEWS Norman Braga MD [address] [place] [address] Referral ID Status Reason Start Date Expiration Date V isits Requested Visits Authorized [id number] Pending Review 06/18/2023 07/12/2024 1 1 Specialty Diagnoses / Procedures Referred By Contac t Referred To Contact Diagnoses Left knee pain, unspecified chronicity Procedures XR BONE LENGTH STUDY Norman Braga MD [address] [place] [id number] Referral ID Status Reason Start Date Expiration Date V isits Requested Visits Authorized [id number] Pending Review 06/18/2023 07/12/2024 1 1 Additional Source Comments Source Comments (unrecognize d section and content) In the event this informatio n is protected by the Federal Confidentiality of Alcohol and Drug Abuse Patient Records regulations: The Federal rules restrict any use of the information to criminally investigate or prosecute any alcohol or drug abuse patient.[facility] Reason for Visit (unrecogniz ed section and content) Reason Comments External Referrals/resources Specialty Diagnoses / Procedures Referred By Contac t Referred To Contact Diagnoses Left knee pain, unspecified chronicity Procedures XR BONE LENGTH STUDY Norman Braga MD [address] [place] [address] Referral ID Status Reason Start Date Expiration Date V isits Requested Visits Authorized [id number] Pending Review 06/18/2023 07/12/2024 1 1 Reason Comments Pain Reason Onset Date Comments Santyl 08/22/2023 Specialty Diagnoses / Procedures Referred By Contac t Referred To Contact Diagnoses Decompensated heart failure (CMS-HCC) CHF (congestive heart failure) (CMS-HCC) Decompensated Heart Failure, Severe Hypokalemia Jonathan Pizarro DO [address] [place] [address] Referral ID Status Reason Start Date Expiration Date Visits Re quested Visits Authorized [id number] 1 1 Reason Comments Hearing Loss Follow up audio 06/13 03/06 Reason Onset Date Comments Hypotension 10/21/2023 Reason Onset Date Comments s/p CATH 10/15/2023 Reason Comments Follow-up EARLY FOR SOB Shortness of Breath Dizziness Reason Comments Follow-up 6 month follow up; t esting prior BCAS Reason Comments Hearing Loss Follow up CT [facility] INFORMATION SOURCE (unrecogn ized section and content) DATE CREATED AUTHOR 03/12/2021 [facility] DATE CREATED AUTHOR AUTHOR'S ORGANIZ ATION 08/13/2021 [facility] DATE CREATED AUTHOR AUTHOR'S ORGANIZ ATION 10/20/2022 [facility] DATE CREATED AUTHOR AUTHOR'S ORGANIZ ATION 07/04/2023 [facility] DATE CREATED AUTHOR AUTHOR'S ORGANIZ ATION 08/20/2023 [facility] DATE CREATED AUTHOR AUTHOR'S ORGANIZ ATION 10/16/2023 [facility] DATE CREATED AUTHOR AUTHOR'S ORGANIZ ATION 10/18/2023 [facility] DATE CREATED AUTHOR AUTHOR'S ORGANIZ ATION 10/25/2023 [facility] DATE CREATED AUTHOR AUTHOR'S ORGANIZ ATION 08/16/2024 [facility] DATE CREATED AUTHOR AUTHOR'S ORGANIZ ATION 08/19/2024 [facility] Care Teams (unrecognized sec tion and content) [...] Provider Active ZAC Renae Attending Provider Active Yeast Stacker Relationship Specialty Start Date End Date Tushar Solano Jr., DO [address] [place] [address] PCP - General Internal Medicine 05/28/23 Yeast Stacker Relationship Specialty Start Date End Date Tushar Solano Jr., DO [address] [place] [address] PCP - General Internal Medicine 05/28/23 Yeast Stacker Relationship Specialty Start Date End Date Tushar Solano MD [address] [place] [address] PCP - General Internal Medicine 04/08/23 Yeast Stacker Relationship Specialty Start Date End Date Tushar Solano MD [address] [place] [address] PCP - General Internal Medicine 04/08/23 Yeast Stacker Relationship Specialty Start Date End Date Tushar Solano MD [address] [place] [address], [place] [address] PCP - General Internal Medicine 04/08/23 Yeast Stacker Relationship Specialty Start Date End Date Tushar Solano Jr., [address] [place] [address] PCP - General Internal Medicine 05/24/16 Yeast Stacker Relationship Specialty Start Date End Date Tushar Solano Jr., DO [address] [place] [address] PCP - General Internal Medicine 05/24/16 Yeast Stacker Relationship Specialty Start Date End Date Tushar Solano Jr., DO [address] [place] [address] PCP - General Internal Medicine 05/24/16 Yeast Stacker Relationship Specialty Start Date End Date Tushar Solano MD [address] [place] [address], [place] [address] PCP - General Internal Medicine 04/08/23 Yeast Stacker Relationship Specialty Start Date End Date Tushar Solano MD [address] [place] [address], [place] [address] PCP - General Internal Medicine 04/08/23 Yeast Stacker Relationship Specialty Start Date End Date Tushar Solano MD [address] [place] [address], [place] [address] PCP - General Internal Medicine 04/08/23 Yeast Stacker Relationship Specialty Start Date End Date Tushar Solano MD [address] [place] [address] PCP - General Internal Medicine 04/08/23 Yeast Stacker Relationship Specialty Start Date End Date Tushar Solano Jr., DO [address] [place] [address] PCP - General Internal Medicine 05/24/16 Yeast Stacker Relationship Specialty Start Date End Date Tushar Solano Jr., DO [address] [place] [address] PCP - General Internal Medicine 05/24/16 Yeast Stacker Relationship Specialty Start Date End Date Tushar Solano Jr., [address] [place] [address] PCP - General Internal Medicine 05/24/16 Yeast Stacker Relationship Specialty Start Date End Date Tushar Solano Jr., DO [address] [place] [address] PCP - General Internal Medicine 05/24/16 Yeast Stacker Relationship Specialty Start Date End Date Tushar Solano MD [address] [place] [address] PCP - General Internal Medicine 04/08/23 Yeast Stacker Relationship Specialty Start Date End Date Tushar Solano MD [address] [place] [address] PCP - General Internal Medicine 04/08/23 Goals (unrecognized section and content) Goals may be documented in a n alternate section Scheduled Active and Recently Administ ered Medications (unrecognized section and content) Medication Order 10/13/2023 10/14/2023 10/15/2023 aspirin chewable tablet 81 mg 81 mg, oral, Daily, First dose on Fri10/13/23 at 0900 0830 (Given - Provider: Gely Chua RN) 0729 ([facility] Hold - Provider: Automatic Transfer Provider - Reason: Patient not available)0900 (Dose Auto Held - Provider: Automatic Transfer Provider)0917 ([facility] Unhold - Provider: Automatic Transfer Provider) 0958 (Given - Provider: David Florez, RN) bisoprolol (ZEBETA) tablet 5 mg 5 mg, oral, Daily, First dose on Fri10/14/23 at 1115, Look-alike/sound-alike medication - verify indication for use. 1332 (Given - Provider: Gley Chua RN) 0959 (Given - Provider: David Florez RN) clopidogreL (PLAVIX) tablet 75 mg 75 mg, oral, Daily, First dose on Fri10/13/23 at 0900, Look-alike/sound-alike medication - verify indication for use. 0831 (Given - Provider: Gely Chua RN) 0729 ([facility] Hold - Provider: Automatic Transfer Provider - Reason: Patient not available)0900 (Dose Auto Held - Provider: Automatic Transfer Provider)0917 ([facility] Unhold - Provider: Automatic Transfer Provider)1021 (Given - Provider: Gely Chua RN) 0958 (Given - Provider: David Florez RN) collagenase (SANTYL) ointment 1 Application 1 Application, topical, Daily, First dose on Fri10/13/23 at 1500, Apply to thigh wound . 2034 (Given - Provider: Jolene Almaguer RN) 0729 ([facility] Hold - Provider: Automatic Transfer Provider - Reason: Patient not available)0900 (Dose Auto Held - Provider: Automatic Transfer Provider)0917 ([facility] Unhold - Provider: Automatic Transfer Provider) [...] 0347 (Given - Provider: Jolene Almaguer RN)0729 ([facility] Hold - Provider: Automatic Transfer Provider - Reason: Patient not available)0917 ([facility] Unhold - Provider: Automatic Transfer Provider) [...] Entry - Provider: Gely Chua RN) 0729 ([facility] Hold - Provider: Automatic Transfer Provider - Reason: Patient not available)0917 ([facility] Unhold - Provider: Automatic Transfer Provider) metoprolol succinate XL (TOPROL XL) 24 hr tablet 25 mg (CANCELED) 25 mg, oral, Daily, First dose on Fri10/13/23 at 1630, Look-alike/sound-alike medication - verify indication for use. Do not crush or chew. 1805 (Given - Provider: Gely Chua RN) 0729 ([facility] Hold - Provider: Automatic Transfer Provider [...] Medication Order 10/13/2023 10/14/2023 10/15/2023 heparin infusion 64778 units/500 mL in 0.45% NaCl (50 units/mL [...] RN)0852 ([facility] Unhold - Provider: Wil Boyce, BEHAVIORAL HEALTH CLINICIAN-DIRECTOR HARDWARE)0900 (Stop Bag - Provider: Gely Chua RN - Comment: off in quality assurance qa lab technician) PRN Medication Order 10/13/2023 10/14/2023 10/15/2023 [...] mg/dL after initial treatment, repeat treatment. 728 ([facility] Hold - Provider: Automatic Transfer Provider - Reason: Patient not available)09 ([facility] Unhold - Provider: Automatic Transfer Provider) dextrose 5 % (D5W) infusion 100 mL/hr, intravenous, Continuous PRN, blood glucose less than 70 mg/dL, Starting on 10/12/23 at 2321, Use immediately following dextrose 50% or glucagon treatment for patients who are unconscious or NPO. Contact prescriber for additional orders. If blood glucose is not greater than 70 mg/dL after initial treatment, repeat treatment. 728 ([facility] Hold - Provider: Automatic Transfer Provider - Reason: Patient not available)916 ([facility] Unhold - Provider: Automatic Transfer Provider) [...] treatment. VESICANT (RED) Warning: HYPERTONIC solution. 728 ([facility] Hold - Provider: Automatic Transfer Provider - Reason: Patient not available)916 ([facility] Unhold - Provider: Automatic Transfer Provider) diphenhydrAMINE (BENADRYL) injection 50 mg(Linked Group 2) 50 mg, intravenous, As needed, for previously documented contrast allergy, Starting on Fri10/13/23 at 1118, Scheduling/ADT, Administer one hour prior to procedure Look-alike/sound-alike medication - verify indication for use. 728 ([facility] Hold - Provider: Automatic Transfer Provider - Reason: Patient not available)09 ([facility] Unhold - Provider: Automatic Transfer Provider) [...] (See Alternative - Provider: Gely Chua, RN)0729 ([facility] Hold - Provider: Automatic Transfer Provider - Reason: Patient not available)0917 ([facility] Unhold - Provider: Automatic Transfer Provider) [...] medication - verify indication for use. 0729 ([facility] Hold - Provider: Automatic Transfer Provider - Reason: Patient not available)0917 ([facility] Unhold - Provider: Automatic Transfer Provider) [...] over a minimum of 1 hour. 0729 ([facility] Hold - Provider: Automatic Transfer Provider - Reason: Patient not available)09 ([facility] Unhold - Provider: Automatic Transfer Provider) [...] 1.2 = 40 mEq VESICANT (YELLOW) 07 ([facility] Hold - Provider: Automatic Transfer Provider - Reason: Patient not available)09 ([facility] Unhold - Provider: Automatic Transfer Provider) [...] medication - verify indication for use. 0729 ([facility] Hold - Provider: Automatic Transfer Provider - Reason: Patient not available)09 ([facility] Unhold - Provider: Automatic Transfer Provider) [...] with a full glass of water. 07 ([facility] Hold - Provider: Automatic Transfer Provider - Reason: Patient not available)0917 ([facility] Unhold - Provider: Automatic Transfer Provider) sodium chloride 0.9 % flush 3 mL 3 mL, intravenous, As needed, line care, before and after each intermittent use, Starting on Fri10/14/23 at 0913 sodium chloride 0.9 % infusion 10 mL/hr, intravenous, Continuous PRN, to maintain patency of lines, Starting on 10/12/23 at 2321, Line #1 0729 ([facility] Hold - Provider: Automatic Transfer Provider - Reason: Patient not available)0917 ([facility] Unhold - Provider: Automatic Transfer Provider) sodium chloride 0.9 % infusion 10 mL/hr, intravenous, Continuous PRN, to maintain patency of lines, Starting on 10/12/23 at 2321, Line #2 0729 ([facility] Hold - Provider: Automatic Transfer Provider - Reason: Patient not available)0917 ([facility] Unhold - Provider: Automatic Transfer Provider) sodium chloride 0.9 % infusion 10 mL/hr, intravenous, Continuous PRN, to maintain patency of lines, Starting on 10/12/23 at 2321, Line #3 0729 ([facility] Hold - Provider: Automatic Transfer Provider - Reason: Patient not available)0917 ([facility] Unhold - Provider: Automatic Transfer Provider) [...] complete. Infuse using central line access. 07 ([facility] Hold - Provider: Automatic Transfer Provider - Reason: Patient not available)0917 ([facility] Unhold - Provider: Automatic Transfer Provider) [...] BE BASED ON THE PRIMARY CLINICAL RECORDS. [employer] [facility] provides no warranty or guarantee of the accuracy or completeness of information in this document.
[2024-08-25 11:04] LABS: D Dimer 0.31 mg/L FEU (<=0.59)
[2024-08-25 11:11] LABS: Estimated Average Glucose 103 mg/dL; Glycohemoglobin A1C 5.2 % (4.5-6.2)
[2024-08-25 11:23] LABS: Alanine Aminotransferase 41 U/L (14-59); Albumin Globulin Ratio 1.1; Albumin Level 3.1 g/dL (3.4-5.0); Alkaline Phosphatase 103 U/L (46-116); Anion Gap 15.5; Aspartate Amino Transferase 28 U/L (15-37); Bilirubin Direct 0.1 mg/dL (0.0-0.2); Bilirubin Total 0.2 mg/dL (0.2-1.0); Carbon Dioxide 22.5 mmol/L (21.0-32.0); Chloride 107 mmol/L (98-107); Estimated GFR (African America 51 (>=60 mL/min/1.73m^2); Estimated GFR (Non-African Ame 42 (>=60 mL/min/1.73m^2); Globulin 2.8 g/dL; Sodium 140 mmol/L (136-145); Thyroid Stimulating Hormone 2.944 uIU/mL (0.358-3.740); Total Protein 5.9 g/dL (6.4-8.2)
[2024-08-26 04:09] LABS: CA 19-9 22 U/mL (0-35)
== END 2024-08-25 10:24 | disposition home or self-care (01) ==
PROVIDERS: PCP Internal Medicine; Visit Provider Internal Medicine
DX: R63.4 Abnormal weight loss (principal); I82.401 Acute embolism and thrombosis of unspecified deep veins of right lower extremity; E11.9 Type 2 diabetes mellitus without complications; N18.31 Chronic kidney disease, stage 3a; E87.5 Hyperkalemia; I50.22 Chronic systolic (congestive) heart failure; Z79.899 Other long term (current) drug therapy; R19.7 Diarrhea, unspecified
CPT/HCPCS: 36415; 80051; 80076; 82565; 83036; 83880; 84443; 84520; 85025; 85378; 86301

== ENCOUNTER 2025-07-07 19:27 | Emergency (ER) | payer MEDICARE, SELFPAY ==
--- OUTSIDE RECORDS SUMMARY | 2025-06-27 09:30 | XMS_ITS | Encounter Summary ---
Author Organization [facility] Address [id number] [address] [place] [address] Care Team Providers Care Security System Engineer Name Role Phone Palmoo Dewey DO, Charles L Primary Care Provider Reason for Visit * TczrweLuboqctpNzitjj-haHc-gsgvs ck-s/p imp 06/20 w/rtc-scheduled w/pt Encounter Details DateTypeDepartmentCare Team (Latest Contact Info)Baqracqrbxe45/15/2025 9:30 AM ESTOffice Visit [facility] [address] [place] [address] Norman Capone, HOLE P[employer]CHER STRAP-RIVETER HELPER [address] [place], [place] [id number] Ischemic cardiomyopathy (Primary Dx); Essential hypertension; Chronic coronary artery disease; Chronic combined systolic and diastolic heart failure (CMS-HCC); Hx of CABG; ICD (implantable cardioverter-defibrillator) in place Social History Tobacco UseTypesPacks/DayYears UsedDateSmoking Tobacco: NeverSmokeless Tobacco: NeverAlcohol UseStandard Drinks/WeekCommentsNo0 (1 standard drink = 0.6 oz pure alcohol)[facility] UtilitiesAnswerDate RecordedIn the past 12 months has the electric, gas, oil, or water company threatened to shut off services in your home?No 10/13/2023HQ-2AnswerDate RecordedTotal Hybza569/01/2024PRAPARE - Transportation AnswerDate RecordedIn the past 12 months, has lack of transportation kept you from medical appointments or from getting medications?No10/13/2023In the past 12 months, has lack of transportation kept you from meetings, work, or from getting things needed for daily living?No4AUDIT-CAnswerDate RecordedQ1: How often do you have a drink containing alcohol?Never06/27/2025Q2: How many drinks containing alcohol do you have on a typical day when you are drinking?Patient does not drink06/27/2025Q3: How often do you have six or more drinks on one occasion?Never06/27/2025Housing InstabilityAnswerDate RecordedAre you worried or concerned that in the next two months you may not have stable housing that you own, rent or stay in as a part of a household?No4ChildcareAnswerDate UvxevxakQfganbrpiQwloxrn91/31/2019EmploymentAnswerDate RecordedEmploymentUnknown 12/11/2018Hunger ScreeningAnswerDate RecordedWithin the past 12 months we worried whether our food would run out before we got money to buy more.Never True04/12/2025Within the past 12 months the food we bought just didn't last and we didn't have money to get more.Never True04/12/2025Purpose - LifeAnswerDate RecordedPurpose and direction in ypjcIgcislt59/11/2021CommentsNoSex and Gender InformationValueDate RecordedSex Assigned at BirthNot on fileLegal Sex Hcseti0302/16/2015 11:49 AM EDTGender IdentityNot on fileSexual OrientationNot on filedocumented as of this encounter Last Filed Vital Signs Vital SignReadingTime TakenCommentsBlood Fppqocfk476/6606/27/2025 9:15 AM EST Duwvq034306/27/2025 9:15 AM ESTTemperature--Respiratory Rate--Oxygen Emtbjozlui38% 06/27/2025 9:15 AM ESTInhaled Oxygen Concentration--Ryvlld61.5 kg (129 lb) 06/27/2025 9:15 AM PKDTxvejk391.4 cm (5')06/27/2025 9:15 AM ESTBody Mass Index 25.19108/28/2024 9:15 AM ESTdocumented in this encounter Functional Status * BPAnswerDate of EngczwybssOpuvqx699/6606/27/2025 9:15 AM Miryam Valdes * PulseAnswerDate of ZjovuusohtSbtzie7235 9:15 AM Miryam Valdes * XlL7KsrcbwEimn of FsgvwopmzjTtpfjs7340 9:15 AM Miryam Valdes * HeightAnswerDate of TezxdjenzlJezdpe7724/15/2025 9:15 AM Miryam Valdes * WeightAnswerDate of HbqgwjyiznUtuhmp577135 9:15 AM Miryam Valdes * BEE (kcal)AnswerDate of OgkdvgfzvvEghwvk451118/15/2025 9:15 AM Miryam Valdes * BSA (Calculated - sq m)AnswerDate of AssessmentAuthor1.5706/27/2025 9:15 AM Miryam Valdes * BMI (Calculated)AnswerDate of BbidmmisqpCfbskm67.212 9:15 AM Miryam Valdes * AUDIT-C ScoreAnswerDate of GgjyfzbfzdHcnyqf785/15/2025 9:16 AM Miryam Valdes * Alcohol UseQuestionAnswerDate of AssessmentAuthorQ1: How often do you have a drink containing alcohol?Never06/27/2025 9:16 AM Miryam ValdesQ2: How many drinks containing alcohol do you have on a typical day when you are drinking?Patient does not drink06/27/2025 9:16 AM Miryam ValdesQ3: How often do you have six or more drinks on one occasion?Never06/27/2025 9:16 AM Miryam Valdes * Weight in (lb) to have BMI = 25AnswerDate of WwrzexytlyXnzpji349.712 9:15 AM Miryam Valdes * BPAnswerDate of WsujbgrpdiJkdpui596/6606/27/2025 9:15 AM Miryam Valdes * PulseAnswerDate of EkehnufcvpGjbesu9646/15/2025 9:15 AM Miryam Valdes * YtO4YgvdkuEtdj of KbuegenxutKkzbov5146 9:15 AM Miryam Valdes * HeightAnswerDate of ZnlkzcjqfdXimfoa2758/15/2025 9:15 AM Miryam Valdes * WeightAnswerDate of FaaezqxskuZcxczv664856 9:15 AM Miryam Valdes * BEE (kcal)AnswerDate of GqdsgysjwpXzaxyo404363/15/2025 9:15 AM Miryam Valdes * BSA (Calculated - sq m)AnswerDate of AssessmentAuthor1.5712 9:15 AM Miryam Valdes * BMI (Calculated)AnswerDate of PzzpkgipoqSaukpt06.212 9:15 AM Miryam Valdes * Weight in (lb) to have BMI = 25AnswerDate of BaxbgsgytgKowntd108.712 9:15 AM Miryam Valdes documented as of this encounter Mental Status * BPAnswerEntry MyoeSeadrf195/6606/27/2025 9:15 AM Miryam Valdes * PulseAnswerEntry FglsPlvkck6980/15/2025 9:15 AM Miryam Valdes * SnH2QhnicaLludw KvhbIpvftx6101/15/2025 9:15 AM Miryam Valdes documented in this encounter Progress Notes * Norman Capone, [employer] P[employer]ER HELPER - 06/27/2025 9:30 AM EST Sujata Alonzo Date of visit: 06/27/2025 Date of : 1955 Age: 69 y.o. Patient Active Problem List Diagnosis Status post placement of implantable loop recorder Hyperlipidemia Essential hypertension Chronic coronary artery disease Hx of CABG Bicuspid aortic valve PFO (patent foramen ovale) Nonrheumatic aortic valve insufficiency Stenosis of left carotid artery Shortness of breath Ischemic cardiomyopathy Chronic combined systolic and diastolic heart failure (CMS-HCC) ICD (implantable cardioverter-defibrillator) in place Allergies Allergen Reactions Metoprolol Other (See Comments) Patient feels like she is dying . I couldn't move, felt like I was having a stroke . Cefadroxil duricef Fenofibrate Micronized tricor Fluvoxamine luvox Nefazodone serzone Niacin Other reaction(s): Intolerance-unknown Nitroglycerin Headache Pt states she gets a severe headache when takes nitro pill Atorvastatin Hives and Rash Codeine Hives, Rash and Hallucinations Current Outpatient Medications Medication Sig Dispense Refill ascorbic acid, vitamin C, (VITAMIN C) 1000 mg tablet Take 1 tablet (1,000 mg total) by mouth in themorning. azelastine (OPTIVAR) 0.05 % ophthalmic solution 1 drop in the morning and 1 drop before bedtime. calcium carbonate (CALCIUM 500 ORAL) Take 500 mg by mouth in the morning. cholecalciferol, vitamin D3, 125 mcg (5,000 unit) tablet,disintegrating 125 mcg 3 (three) times a day. clopidogreL (PLAVIX) 75 mg tablet Take 1 tablet (75 mg total) by mouth in the morning. 30 tablet 11 cyanocobalamin (vitamin B-12) 1000 MCG tablet Take [...] mg total) by mouth daily with breakfast. liothyronine (CYTOMEL) 5 MCG tablet Take 2 tablets (10 mcg total) by mouth in the morning. midodrine (PROAMATINE) 10 mg tablet TAKE 1 TABLET BY MOUTH THREE TIMES A DAY 270 tablet 3 montelukast (SINGULAIR) 10 mg [...] mg total) before bedtime. 180 tablet 3 rosuvastatin (CRESTOR) 20 mg tablet Take 1 tablet (20 mg total) by mouth in the morning. sucralfate (CARAFATE) 1 gram tablet Take 1 tablet (1 g total) by mouth in the morning and at bedtime. torsemide (DEMADEX) 20 mg tablet Take 1 tablet (20 mg total) by mouth as needed (swelling or weightgain). prn traZODone (DESYREL) 150 mg tablet Take 150 mg by mouth nightly. ipratropium (ATROVENT) 21 mcg (0.03 %) nasal spray as needed. (Patient not taking: Reported on 06/27/2025) rimegepant (NURTEC ODT) 75 mg tablet,disintegrating Dissolve 1 tablet (75 mg total) on tongue in the morning. prn. (Patient not taking: Reported on 06/27/2025) No current facility-administered medications for this visit. Chief Complaint Patient presents with Follow-up Ov-wound ck-s/p imp 06/20 w/rtc-scheduled w/pt History of Present Illness Sujata Alonzo is here today with friend on follow-up after implanted dual- chamber ICD primary prevention by Dr. Finney. Her history includes hypertension, MVD with prior NSTEMI/CABG/stents, HFr EF with prior echo 25 30%, LBBB, CKD, CVA, BAV, and peripheral arterial disease. NSTEMI October 2023 Despite limited GDMT second-degree to hypotension, EF remain less than 35% warranting [employer] implant completed last week On follow-up today, the incision line remains well approximated. Surgical glue followed by Steri-Strips remain intact over the incision line. Previous loop recorder was extracted as well. Patient maintains left arm restrictions. Patient had questions about arm movement, overall functioning of device and how the remote transmitter works for which we went over in detail. Patient also states that she has felt more energy since device implant. She has had history of bradycardic episodes Will scheduled for device check in the next 4-6 weeks Past Medical History: Diagnosis Date Angina pectoris Atherosclerosis of coronary artery bypass graft Atherosclerotic heart disease Chronic kidney disease Coronary angioplasty status Coronary artery disease CVA (cerebral vascular accident) ([facility]) Decompensated heart failure ([facility]) 10/13/2023 Dyspnea Hyperlipidemia Hypertension Hypotension Other chest pain Stroke ([facility]) No data recorded No data recorded No data recorded Past Surgical History: Procedure Laterality Date . N/A 06/20/2025 Performed by Dyllan Sinclair MD at [facility] () CARDIAC CATHETERIZATION Cardiac catheterization N/A 02/15/2023 Performed by Star Espinosa MD at [facility] CARDIAC CATH LABS Cardiac catheterization - LV cors w/graft check N/A 10/25/2020 Performed by Alexi Freeman MD at [facility] CARDIAC CATH LABS Coronary angiogram and graft/southern ute N/A 02/15/2023 Performed by Star Espinosa MD at [facility] CARDIAC CATH LABS Coronary angiogram and left ventricular gram/pressure + graft/southern ute N/A 10/25/2020 Performed by Alexi Freeman MD at [facility] CARDIAC CATH LABS Coronary angiogram and left ventricular gram/pressure + graft/southern ute N/A 06/18/2016 Performed by Alexi Freeman MD at [facility] CARDIAC CATH LABS Coronary angiogram/lv/graft and right heart N/A 10/14/2023 Performed by Alexi Freeman MD at [facility] CARDIAC CATH LABS CORONARY ANGIOPLASTY 12/08/2020 orbital atherectomy and 2 HARRY to prox and distal Circ, at [facility] per Dr. Madhav Ugalde CORONARY ARTERY BYPASS GRAFT 09/08/2014 DC ICD Implant, BSI N/A 06/20/2025 Performed by Dyllan Sinclair MD at [facility] HR (EP) HYSTERECTOMY INSERTION LOOP RECORDER 05/24/2016 Percutaneous coronary angioplasty left circumflex N/A 02/15/2023 Performed by Star Espinosa MD at [facility] CARDIAC CATH LABS Stent drug-eluting left circumflex N/A 02/15/2023 Performed by Star Espinosa MD at [facility] CARDIAC CATH LABS Family History Problem [...] use: No Drug use: No Sexual activity: Defer Other Topics Concern Caffeine Use Yes Comment: pop and tea Social History Narrative Not on file Social Drivers of Health Financial Resource Strain: Not on file Food Insecurity: No Food Insecurity (04/12/2025) Hunger Screening Food Insecurity - Worry: Never [...] Review of Systems Review of Systems Constitutional: Negative for malaise/fatigue. HENT: Negative for nosebleeds. Cardiovascular: Negative for chest pain, leg swelling and palpitations. Vascular: Negative for asymmetric leg edema, claudication, lower extremity wounds or ulcers and varicose veins. Respiratory: Negative for cough, shortness of breath and wheezing. Hematologic/Lymphatic: Does not bruise/bleed easily. Musculoskeletal: Negative for joint pain, joint swelling, muscle cramps and muscle weakness. Gastrointestinal: Negative for heartburn, nausea and vomiting. Genitourinary: Negative for hematuria. Neurological: Negative for dizziness, headaches, light-headedness and weakness. Psychiatric/Behavioral: The patient is not nervous/anxious. CARDIOVASCULAR: Please review HPI. Physical Examination General appearance: Alert, oriented and cooperative. In no acute distress. Skin: Warm and dry to touch. Head: Normocephalic, without obvious abnormality, atraumatic. Ears, Nose, Mouth, Throat: Throat clear without erythema or exudate. Dentition intact. Eyes: Conjunctivae unremarkable, EOM intact. Neck: No JVD, No carotid bruit. Neck supple, trachea midline. Respiratory: Clear to auscultation bilaterally, no use of accessory muscles. Cardiovascular: RRR with normal S1 and S2 with no murmurs. Gastrointestinal: Soft, non-tender. Bowel sounds normal. Musculoskeletal: No peripheral edema. Neurologic: Oriented to time, person and place, affect appropriate. No focal/major motor defects noted. Psychiatric: Appropriate mood, memory and judgement. VITAL SIGNS: BP 130/66 Pulse 76 Ht 152.4 cm (5') Wt 58.5 kg (129 lb) SpO2 98% BMI 25.19 kg/m?? No orders of the defined types were placed in this encounter. There are no discontinued medications. IMPRESSIONS/PLAN 1. Ischemic cardiomyopathy 2. Essential hypertension 3. Chronic coronary artery disease 4. Chronic combined systolic and diastolic heart failure (CMS-HCC) 5. Hx of CABG 6. ICD (implantable cardioverter-defibrillator) in place 1. Combined systolic/diastolic heart failure/ischemic cardiomyopathy EF 25 30% April 2025, limited goal-directed medical therapy. 2. Primary prevention [employer] dual-chamber ICD 06/20/2025. Device check on next visit. 3. CAD with prior NSTEMI October 2023 with prior CABG C with previous circumflex both ostial to prox and mid to distal stents patent, OM2 50% lesion, RCA 100% stenosed both proximal and distal, PDA collaterals from circ church to LAD small-vessel throughout 4. Hypotension. She is on scheduled midodrine 5. Dyslipidemia on Crestor Device check on next visit and if stable findings, follow-up in six-month Patient seen while Dr. Sinclair was immediately available in the office suite TODAYS ORDERS No orders of the defined types were placed in this encounter. FOLLOW UP Return in about 4 weeks (around 07/25/2025) for Next scheduled follow up. PCP: TUSHAR SOLANO JR, DO Referring Physician: Tushar Solano Jr., [address] [place] [address] CHER Christianson 06/27/25 1007 documented in this encounter Plan of Treatment DateTypeDepartmentCare Team (Latest Contact Info)Dlcpdvnysvr11/14/2026 9:00 AM ESTClinical Support [facility] [address] [place] [address] 07/27/2025 9:45 AM ESTOffice Visit [facility] [address] [place] [address] Govind Pineda DO [address] [place] [address] 10/27/2025 9:00 AM EDTAppointment [facility] [address] [place] [phone] Genet Tony, DO [address] [facility] [address] [place] [address] 10/27/2025 9:45 AM EDTAppointment [facility] [address] [place] [phone] Genet Tony, DO [address] [facility] [address] [place] [address] 10/27/2025 10:45 AM EDTAppointment [facility] [address] [place] [phone] Geent Tony, DO [address] [facility] [address] [place] [address] 11/07/2025 11:00 AM EDTOffice Visit [facility] [address] [place] [address] Genet Tony, DO [address] [facility] [address] [place] [id number] documented as of this encounter Visit Diagnoses Diagnosis Ischemic cardiomyopathy- Primary Other specified forms of chronic ischemic heart disease Essential hypertension Unspecified essential hypertension Chronic coronary artery disease Coronary atherosclerosis of unspecified type of vessel, southern ute or graft Chronic combined systolic and diastolic heart failure (CMS-HCC) Chronic combined systolic and diastolic heart failure Hx of CABG Postsurgical aortocoronary bypass status ICD (implantable cardioverter-defibrillator) in place documented in this encounter Additional Health Concerns AssessmentNoted TimePHQ-9 Depression Total Score: 11:29 AM EDT documented as of this encounter Care Teams Team MemberRelationshipSpecialtyStart DateEnd Date Tushar Solano Jr., [address] [place] [id number] PCP - GeneralInternal Nhhphdqq82/11/16documented as of this encounter
[2025-07-07] VITALS (19 sets, daily range): BP systolic 110–149; BP diastolic 63–79; PULSE 70–82; TEMP 36.5; O2SAT 93–100; BMI 24.4
--- NOTE | 2025-07-07 19:50 | XR_ITS ---
The [address] [address] Patient Name: ASHVIN RENE MRN: [id number] date: 1955 Sex: F Assigned Patient Location: ER Current Patient Location: Accession/Order Number: [id number] Exam Date: 07/07/2025 20:05 Report Date: 07/08/2025 08:07 At the request of: CHRIS CORTÉS MD Procedure: XR chest 1V XR chest 1V 07/07/2025 8:13 PM SIGNS AND SYMPTOMS: ^near syncope PROTOCOL: Radiograph of the chest COMPARISON: 02/20/2024 FINDINGS: The trachea is midline. Sternotomy wires overlie the mediastinum. There is a dual lead pacer device. Atherosclerotic changes are noted in the aortic arch. The heart and mediastinal structures are within normal limits. There is chronic elevation of the right hemidiaphragm similar to the prior exam. The lung parenchyma is clear. The bony thorax is intact. Degenerative changes are noted in the shoulders and thoracic spine. XR/XR chest 1V IMPRESSION: No acute cardiopulmonary pathology. Chronic findings are redemonstrated as above. Impression dictated by: Malachi Dumont M.D. 07/08/2025 8:07 AM Dictation Location: [place] [address] Electronically authenticated by: [id number] Y Date: 07/08/2025 08:07
--- NOTE | 2025-07-07 19:50 | ECG_ITS ---
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 Measurements Intervals [place] Rate: 72 P: 64 ID: [id number] QRS: -12 QRSD: 128 T: 150 QT: 370 QTc: 394 Interpretive Statements 1100 Sinus rhythm 3434 Septal myocardial infarction, age undetermined Nonspecific ST-T wave changes 9150 abnormal ECG Compared to ECG 02/20/2024 14:02:42 No significant changes Electronically Signed On 07-07-2025 21:36:15 EST by FELICIA LE M.D.
--- NOTE | 2025-07-07 19:52 | ED.GENADUL1 ---
HPI HPI - General Adult General Chief complaint: Nausea/Vomiting/Diarrhea Stated complaint: NAUSEA Time Seen by Provider: 07/07/25 19:35 Source: patient Mode of arrival: ambulance Limitations: no limitations History of Present Illness HPI narrative: past history of hypotension treated with midodrine 10mg 6 times a day prn. Recurrent episodes of near syncope over several years. She describes knowing when the episode is going to occur. States her legs will feel heavy and she becomes light headed and vomits. At family gathering for [employer] today. States she got out of a chair and her legs felt heavy. Her son seen she was light headed and help her to another chair in the kitchen. He then was helping her back to another chair and she became light headed and vomited. Other members at the home insisted someone call 911. She states she was starting to feel better and did not feel she needed to go. States this has occurred several times in the past and the workup has always been neg. Now that she is here she is asymptomatic. No chest pain, dyspnea Related Data Home Medications ?Medication ?Instructions ?Recorded ?Confirmed clopidogrel 75 mg tablet 75 mg PO DAILY 10/12/23 02/20/24 duloxetine 30 mg capsule,delayed 30 mg PO DAILY 10/12/23 02/20/24 release famotidine 40 mg tablet 40 mg PO BEDTIME 10/12/23 02/20/24 fludrocortisone 0.1 mg tablet 0.1 mg PO DAILY 10/12/23 02/20/24 liothyronine 5 mcg tablet 10 mcg PO DAILY 10/12/23 02/20/24 midodrine 10 mg tablet 10 mg PO TID 10/12/23 02/20/24 montelukast 10 mg tablet 10 mg PO DAILY 10/12/23 02/20/24 pantoprazole 40 mg tablet,delayed 40 mg PO .dinner 10/12/23 02/20/24 release ranolazine 1,000 mg 1,000 mg PO Q12H 10/12/23 02/20/24 tablet,extended release,12 hr rosuvastatin 20 mg tablet 20 mg PO DAILY 10/12/23 02/20/24 sucralfate 1 gram tablet 1 g PO BID PRN vomiting/diarrhea 10/12/23 02/20/24 trazodone 150 mg tablet 150 mg PO BEDTIME 10/12/23 02/20/24 calcium citrate 250 mg PO DAILY 11/04/23 02/20/24 cholecalciferol (vitamin D3) 125 5,000 unit PO TID 11/04/23 02/20/24 mcg (5,000 unit) capsule dapagliflozin propanediol 10 mg 10 mg PO QAM 11/04/23 02/20/24 tablet (Farxiga) ipratropium bromide 21 mcg (0.03 2 spray intranasal DAILY PRN 11/04/23 02/20/24 %) nasal spray allergy symptoms midodrine 10 mg tablet 10 mg PO TID PRN hypotension 11/04/23 02/20/24 spironolactone 25 mg tablet 12.5 mg PO DAILY 11/04/23 02/20/24 ferrous sulfate 325 mg (65 mg 325 mg PO DAILY 02/20/24 02/20/24 iron) tablet (Feosol) fexofenadine 180 mg tablet 180 mg PO DAILY 02/20/24 02/20/24 (Katharina Allergy) loperamide 2 mg capsule 2 mg PO QID PRN loose stool 02/20/24 02/20/24 (Anti-Diarrheal (loperamide)) multivitamin (Daily Multi-Vitamin 1 tab PO DAILY 02/20/24 02/20/24 tablet) nitroglycerin 0.4 mg sublingual 0.4 mg sublingual Q5M 02/20/24 02/20/24 tablet pregabalin 50 mg capsule (Lyrica) 50 mg PO BEDTIME 02/20/24 02/20/24 Previous Rx's ?Medication ?Instructions ?Recorded food supplemt, lactose-reduced 1 ea PO BID #5,688 mL 02/24/24 (Ensure Active Protein-Muscle oral liquid) oxycodone 5 mg tablet 5 mg PO Q4H PRN pain (scale score 02/24/24 7-10) #180 tabs Allergies Allergy/AdvReac Type Severity Reaction Status Date / Time No Known Drug Allergies Allergy Verified 02/20/24 14:00 Opioid HPI Opioid Management Most Recent Opioid Data: Last Pain Scale 3 Today, 19:31 Last Pain Intensity 8 02/24/24, 10:06 Last ORT Total Score 0 02/20/24, 16:02 Last ORT Risk Category Low Risk 02/20/24, 16:02 Review of Systems ROS Status of ROS 10 or more systems reviewed and unremarkable except as noted in history and below [facility] Medical History (Updated 07/07/25 @ 21:29 by Jaren Monge MD) Pre-operative clearance ?Z01.818 - Encounter for other preprocedural examination (ICD-10) CAD (coronary artery disease) ?I25.10 - Atherosclerotic heart disease of [place] coronary artery without angina pectoris (ICD-10) Fracture of right hip ?S72.001A - Fracture of unspecified part of neck of right femur, initial encounter for closed fracture (ICD-10) GERD (gastroesophageal reflux disease) ?K21.9 - Gastro-esophageal reflux disease without esophagitis (ICD-10) Hypotension ?I95.9 - Hypotension, unspecified (ICD-10) Hypothyroidism ?E03.9 - Hypothyroidism, unspecified (ICD-10) CHF (congestive heart failure) ?I50.9 - Heart failure, unspecified (ICD-10) Non-STEMI (non-ST elevated myocardial infarction) ?I21.4 - Non-ST elevation (NSTEMI) myocardial infarction (ICD-10) Stroke ?I63.9 - Cerebral infarction, unspecified (ICD-10) Hip fracture, left ?S72.002A - Fracture of unspecified part of neck of left femur, initial encounter for closed fracture (ICD-10) Left tibial fracture ?S82.202A - Unspecified fracture of shaft of left tibia, initial encounter for closed fracture (ICD-10) Surgical History (Updated 11/04/23 @ 10:53 by Mary Barry NP) History of coronary artery bypass graft x 2 ?Z95.1 - Presence of aortocoronary bypass graft (ICD-10) History of right knee joint replacement ?Z96.651 - Presence of right artificial knee joint (ICD-10) Family History (Updated 11/04/23 @ 05:00 by Carolyn Sanches) Other Family history of diabetes mellitus Family history of hypertension Family history of myocardial infarction Social History (Updated 11/04/23 @ 05:02 by Carolyn Sanches) Within the past year, how often did you have a drink containing alcohol: never Score interpretation: A score less than 3 is consistent with normal alcohol consumption. Smoking status: Former smoker Non-prescribed substance use: denies use Previous occupational history: Retired Highest level of school completed/degree received: high school graduate Are you now , , , , never or living with a partner: In a typical week, how many times do you talk on the telephone with family, friends, or neighbors: 3 or more times per week How often do you get together with friends or relatives: 3 or more times per week Little interest or pleasure in doing things: not at all Feeling down, depressed, or hopeless: not at all Feel stressed/tense/nervous/anxious/difficulty sleeping: not at all Do you think of yourself as: straight/heterosexual Gender Identity: female Exam Constitutional Vital Signs, click to edit/add: Last Vital Signs Temp 97.7 F 07/07/25 19:31 Pulse 72 07/07/25 20:00 Resp 20 07/07/25 20:00 BP 110/63 07/07/25 20:00 Pulse Ox 93 L 07/07/25 20:00 O2 Del Method Room Air 07/07/25 19:31 Common normals: no apparent distress, average body habitus, oriented x3, no limitations, healthy appearing, alert and well nourished [facility] Common normals: normocephalic and head/scalp atraumatic Eye Common normals: EOMs intact bilaterally and conjunctivae normal Respiratory Common normals: normal respiratory effort, no retractions, no use of accessory muscles and clear to auscultation bilaterally Cardio Common normals: regular rate, regular rhythm, S1 normal heart sound and S2 normal heart sound GI Common normals: Normal to inspection, nondistended, normoactive bowel sounds present, soft to palpation and non-tender Extremity Common normals: normal to inspection and full ROM Neuro Common normals: oriented x3, CN's II-XII intact bilaterally, moves all extremities and no focal motor deficits Psych Appearance: grossly normal Course Vital Signs Vital signs: Vital Signs Temperature 97.7 F 07/07/25 19:31 Pulse Rate 75 07/07/25 19:31 Respiratory Rate 18 07/07/25 19:31 Blood Pressure 149/79 H 07/07/25 19:31 Pulse Oximetry 99 07/07/25 19:31 Oxygen Delivery Method Room Air 07/07/25 19:31 Temperature 97.7 F 07/07/25 19:31 Pulse Rate 72 07/07/25 20:00 Respiratory Rate 20 07/07/25 20:00 Blood Pressure 110/63 07/07/25 20:00 Pulse Oximetry 93 L 07/07/25 20:00 Oxygen Delivery Method Room Air 07/07/25 19:31 Medical Decision Making MDM Narrative Medical decision making narrative: patient presents with near syncope. history of hypotension treated with midodrine 6 x per day prn. Past history of similar episodes of near syncope. Arrives asymptomatic. labs unremarkable including troponin. EKG with NSR. old septal infarct. Patient continues to feel well and is requesting to go home. she has experienced similar episodes of near syncope over several years felt related to her hypotension. Will plan discaharge Lab Data Labs: Lab Results 07/07/25 Range/Units 19:40 WBC 8.5 (4.0-11.0) 10^3/uL RBC 4.00 L (4.20-5.40) 10^6/uL Hgb 13.9 (12.0-16.0) g/dL Hct 42.3 (36.0-48.0) % MCV 105.8 H (81.0-99.0) fL MCH 34.8 H (26.7-34.0) pg MCHC 32.9 (29.9-35.2) g/dL RDW 13.2 (11.0-15.0) % Plt Count 263 (150-450) 10^3/uL MPV 9.9 (9.5-13.5) fL Neut % (Auto) 71.4 (43.0-75.0) % Lymph % (Auto) 18.8 L (20.5-60.0) % Bates % (Auto) 7.3 (1.7-12.0) % Eos % (Auto) 1.5 (0.9-7.0) % Baso % (Auto) 0.5 (0.2-2.0) % Neut # (Auto) 6.1 (1.4-6.5) 10^3/uL Lymph # (Auto) 1.6 (1.2-3.8) 10^3/uL Bates # (Auto) 0.6 (0.3-0.8) 10^3/uL Eos # (Auto) 0.1 (0.0-0.7) 10^3/uL Baso # (Auto) 0.0 (0.0-0.1) 10^3/uL Abs Immat Gran (auto) 0.04 H (0.00-0.03) 10^3/uL Imm/Tot Granulo (auto) 0.5 (0.0-0.5) % Sodium 141 (136-145) mmol/L Potassium 4.6 (3.5-5.1) mmol/L Chloride 110 H (98-107) mmol/L Carbon Dioxide 23.0 (21.0-32.0) mmol/L Anion Gap 12.6 BUN 22.0 H (7.0-18.0) mg/dL Creatinine 1.05 H (0.55-1.02) mg/dL Est GFR ( Amer) >60 (>=60 mL/min/1.73m^2) Est GFR (Non-Af Amer) 52 L (>=60 mL/min/1.73m^2) BUN/Creatinine Ratio 21.0 Glucose 198 H (74-106) mg/dL Calcium 8.0 L (8.5-10.1) mg/dL Troponin I High Sens 21.2 (4.0-51.3) pg/mL Discharge Plan Discharge Chief Complaint: Nausea/Vomiting/Diarrhea Clinical Impression: Near syncope Patient Disposition: Home, Self-Care Prescriptions / Home Meds: No Action clopidogrel 75 mg tablet 75 mg PO DAILY duloxetine 30 mg capsule,delayed release(DR/EC) 30 mg PO DAILY famotidine 40 mg tablet 40 mg PO BEDTIME fludrocortisone 0.1 mg tablet 0.1 mg PO DAILY Rx Instructions: hold if standing bp is higher than 120 liothyronine 5 mcg tablet 10 mcg PO DAILY montelukast 10 mg tablet 10 mg PO DAILY midodrine 10 mg tablet 10 mg PO TID pantoprazole 40 mg tablet,delayed release (DR/EC) 40 mg PO .dinner Rx Instructions: 40 mg orally; trazodone 150 mg tablet 150 mg PO BEDTIME Patient Comments: 75-150 mg at qhs sucralfate 1 gram tablet 1 g PO BID PRN (Reason: vomiting/diarrhea) rosuvastatin 20 mg tablet 20 mg PO DAILY ranolazine 1,000 mg tablet extended release 12 hr 1,000 mg PO Q12H fexofenadine [Katharina Allergy] 180 mg tablet 180 mg PO DAILY ferrous sulfate [Feosol] 325 mg (65 mg iron) tablet 325 mg PO DAILY loperamide [Anti-Diarrheal (loperamide)] 2 mg capsule 2 mg PO QID PRN (Reason: loose stool) pregabalin [Lyrica] 50 mg capsule 50 mg PO BEDTIME nitroglycerin 0.4 mg tablet, sublingual 0.4 mg sublingual Q5M Rx Instructions: do not exceed 3 doses per episode multivitamin [Daily Multi-Vitamin] Tablet 1 tab PO DAILY oxycodone 5 mg Tablet 5 mg PO Q4H PRN (Reason: pain (scale score 7-10)) Qty: 180 0RF Ensure Active Protein-Muscle Liquid 1 ea PO BID Qty: 5688 11RF calcium citrate 250 mg calcium tablet 250 mg PO DAILY dapagliflozin propanediol [Farxiga] 10 mg tablet 10 mg PO QAM ipratropium bromide 21 mcg (0.03 %) spray,non-aerosol 2 spray INTRANASAL DAILY PRN (Reason: allergy symptoms) cholecalciferol (vitamin D3) 125 mcg (5,000 unit) capsule 5,000 unit PO TID spironolactone 25 mg tablet 12.5 mg PO DAILY midodrine 10 mg tablet 10 mg PO TID PRN (Reason: hypotension) Rx Instructions: in addition to the scheduled doses Print Language: Ugandan Instructions: Near Syncope (ED) Referrals: KENISHA SOLANO DO [Primary Care Provider, Family Practice] - 1 week
--- OUTSIDE RECORDS SUMMARY | 2025-07-07 19:54 | XMS_ITS | Clinical Summary ---
Author Organization [facility] Address [address] [place], [place] [id number] Care Team Providers Care Engine Oiler Name Role Phone Palomo Dewey DO Tushar Hogan Primary Care Provi john Waqas Mabry MD Unavailable [phone] Maricarmen Barnes MD Unavailable Allergies Active AllergyReactionsCriticalityNoted DateCommentsCodeineMental Status Change, Hives11/24/2020 Medications MedicationSigDispense QuantityRefillsLast FilledStart DateEnd DateStatus acetaminophen (ACETAMINOPHEN EXTRA STRENGTH) 500 mg tablet Take 500 mg by mouth every 8 hours as needed.Active calcium carbonate (CALCIUM 500 ORAL) Take 1 tablet by mouth once daily.Active clopidogrel (PLAVIX) 75 mg tablet Take 75 mg by mouth once daily.Active dexAMETHasone (DECADRON) 2 mg tablet Take 2 mg by mouth as directed. 11-24-2020: 1 mg on -- and 2 mg all other days.Active DULoxetine (CYMBALTA) 60 mg capsule Take 60 mg by mouth daily at bedtime.Active ergocalciferol 50,000 unit capsule (VITAMIN D2, DRISDOL) Take 50,000 Units by mouth four times a week.Active famotidine (PEPCID) 20 mg tablet Take 20 mg by mouth twice daily.Active fludrocortisone (FLORINEF) 0.1 mg tablet Take 0.1 mg by mouth every morning.Active fexofenadine (LAVELL) 180 mg tablet Take 180 mg by mouth once daily as needed.Active isosorbide mononitrate ER (IMDUR) 30 mg 24 hr tablet Take 15 mg by mouth once daily.Active magnesium oxide (MAG-OX) 400 mg (241.3 mg magnesium) tablet Take 400 mg by mouth twice daily.Active midodrine (PROAMITINE) 5 mg tablet Take 5 mg by mouth three times daily.Active nitroglycerin sublingual (NITROQUICK) 0.4 mg SL tablet Dissolve 0.4 mg under the tongue every 5 minutes as needed.Active pantoprazole DR (PROTONIX) 40 mg tablet Take 40 mg by mouth once daily.Active ranolazine SR (RANEXA) 1,000 mg tab ER 12 hr Take 1 tablet by mouth twice daily.Active rosuvastatin (CRESTOR) 20 mg tablet Take 20 mg by mouth once daily.Active traZODone (DESYREL) 150 mg tablet Take 150 mg by mouth daily at bedtime.Active ondansetron (ZOFRAN) 4 mg tablet Take 4 mg by mouth every 8 hours as needed for Nausea/Vomiting.Active acarbose (PRECOSE) 100 mg tablet Take 100 mg by mouth once daily.Active Active Problems ProblemNoted DateDiagnosed DateCoronary artery disease of [place] artery of [place] heart with stable angina niuekbha06/14/2021/P CABG (coronary artery bypass graft)11/24/2020ure dqbfsvmdaagmsmmvbolf53/14/2021Type 2 diabetes mellitus without complication, without long-term current use of insulin 11/24/20201323Iouwbnj49/14/2021 Encounters DateTypeDepartmentCare EjdhSfkowmdgfrm89/15/2025Telephone Gastroenterology [address] [place], [place] [id number] Candelaria Lugo MD Procedure (Referred for EUS--->needs MRCP)04/08/2025linical Document [facility] [place] [address] Provider, [facility] from Last 3 Months Social History Tobacco UseTypesPacks/DayYears UsedDateSmoking Tobacco: Never AssessedArea Deprivation IndexAnswerDate RecordedNational Score (1-100), lower number is lower riskNot on file11/24/2020tate Score (1-10), lower number is lower riskNot on file11/24/2020ata from: https://www.neighborhoodatlas.[facility]/. Last address used for calculationNot on file1CommentsUnknownSex and Gender InformationValueDate RecordedSex Assigned at BirthNot on fileLegal YngPjezir81/29/2021 10:05 AM EDTGender IdentityNot on fileSexual OrientationNot on file Last Filed Vital Signs Vital SignReadingTime TakenCommentsBlood Ljogngqb633/59012/08/2020 11:23 AM EDT Cvrjx5402/28/2021 11:23 AM ZOUXfunbycnupj60.2 ??C (98.9 ??F)12/08/2020 9:23 AM EDTRespiratory Tbgc343812/08/2020 9:23 AM EDTOxygen Kcfbneouaw550%12/08/2020 9:23 AM EDTInhaled Oxygen Concentration--Zvjvfd11.8 kg (140 lb 11.2 oz)12/08/2020 8:00 AM ISFTcmfcc404.5 cm (5' 2 )12/07/2020 8:40 PM EDTBody Mass Index25.73 12/07/2020 8:40 PM EDT Plan of Treatment Health MaintenanceDue DateLast DoneCommentsAnxiety Alyhcsyyz05/09/1972Depression Nvytmwvtu58/09/1972Hepatitis C Fgarnkdhx36/09/1972Mammogram Ktqcgiqcj65/09/1994 CT Bwktzbidgvgg10/09/1999Cologuard (FIT-DNA)11/19/19986390Sspjwktmwzd81/09/1999 Colorectal Cancer Gfgkmdsre28/09/1999Fecal Occult Blood1998Sigmoidoscopy 1998Shingrix Vaccine (1 of 2)11/20/2003Pneumococcal Vaccine: 50+ (2 of 2 - PCV)09/12/Bone Density Fdejkpvhz47/09/2019DTaP,Tdap,Td Vaccine (1 - Tdap)dvance Directive Ppseuvibgj49/01/2025ovid-19 Vaccine (1 - 2024- season)2025Influenza Vaccine (#1) Diabetes Xdkuqsrwv08, 10/15/2023, 10/14/2023, Additional history existsRSV Vaccine (1 - 1-dose 75+ series)2028Lipid Screening , 10/14/2023, 02/15/2023, Additional history exists Procedures Procedure NamePriorityDate/TimeAssociated DiagnosisCommentsEXTERNAL PROCEDURE 05/02/2025 2:52 PM EDT EXTERNAL GGYNQQXYY13/20/2025 2:52 PM EDT EXTERNAL TBHAVPS8405/02/2025 2:52 PM EDT EXTERNAL LAB05/02/2025 2:52 PM EDT BASIC METABOLIC WJRCZOczdwwk70/28/2021 6:27 AM EDT from Last 3 Months or Most Recently Relevant to Health Maintenance Results * EXTERNAL PROCEDURE (05/02/2025 2:52 PM EDT) Narrative Authorizing ProviderResult TypeResult StatusExternal Provider PA-CPROCEDUREFinal Result * EXTERNAL PROCEDURE (05/02/2025 2:52 PM EDT) Narrative Authorizing ProviderResult TypeResult StatusExternal Provider PA-CPROCEDUREFinal Result * EXTERNAL IMAGING (05/02/2025 2:52 PM EDT)Anatomical RegionLateralityModality Other Narrative Authorizing ProviderResult TypeResult StatusExternal Provider PA-CRADIOLOGYFinal Result * EXTERNAL LAB (05/02/2025 2:52 PM EDT) Narrative Authorizing ProviderResult TypeResult StatusExternal Provider PA-CLABORATORY Final Result from Last 3 Months Insurance Care Teams Team MemberRelationshipSpecialtyStart DateEnd Date Tushar Culver Jr., [address] [place] [phone] PCP - GeneralInternal Medicine11/09/20 Waqas Mabry MD [address] [place] [phone] ReferringCardiology11/09/20 Maricarmen Barnes MD [address] [facility] [place] [address] ReferringInternal Medicine12/07/20
--- OUTSIDE RECORDS SUMMARY | 2025-07-07 19:54 | XMS_ITS | Clinical Summary ---
Author Organization [facility] Address [address] [place] [address] Care Team Providers Care Steam Plant Records Clerk Name Role Phone Tushar Culver MD Primary Care Provider [phone] Allergies Active AllergyReactionsCriticalityNoted DateCommentsAspirin-Dipyridamole ErOther 04/08/2023torvastatinHives,VveaDxx3606/18/2016 lipitor LjqmknsnhvCnpwt94/06/2016 duricef CodeineHives,Hallucinations,InzcNwu1602/26/20177357Sinvugpdqzoc65/24/2024 Other Reaction(s): Unknown Reaction MfjtrcyqlecMzrdy39/06/2016 tricor DmrmvypdivqMezoVkv48/26/8995FwvjlhhoffhPaokl94/06/2016 luvox Rosseetbbo29/27/2024 Patient feels like she is dying BaexzocisnRvann01/06/2016 serzone JjmnudFhdhf49/06/2016 Other reaction(s): Intolerance-unknown InavbipsailQbfeo26/26/2023 Medications MedicationSigDispense QuantityRefillsLast FilledStart DateEnd DateStatus famotidine (Pepcid) 40 MG tablet Take 40 mg by mouth DailyActive liothyronine (Cytomel) 5 MCG tablet Take 10 mcg by mouth DailyActive ranolazine (Ranexa) 500 MG 12 hr tablet Take 500 mg by mouth in the morning and 500 mg before bedtime. Do not crush, chew, or split. .Active omeprazole (PriLOSEC) [address] capsule Take 40 mg by mouth in the morning. Take before meals. Do not crush or chew. . Active cholecalciferol (Vitamin D-3) 25 MCG tablet Take 12.5 mcg by mouth in the morning and 12.5 mcg in the evening and 12.5 mcg before bedtime.Active sucralfate (Carafate) 1 g tablet Take 1 g by mouth in the morning and 1 g at noon.Active TRAZODONE HCL ER PO Take 150 mg by mouth at bedtimeActive pregabalin (Lyrica) 50 MG capsule Take 50 mg by mouth in the morning and 50 mg before bedtime.Active clopidogrel (Plavix) 75 MG tablet Take 75 mg by mouth DailyActive DULoxetine (Cymbalta) [address] capsule Take 30 mg by mouth at bedtime Do not crush or chew.Active montelukast (Singulair) 10 MG tablet Take 10 mg by mouth DailyActive calcium citrate (Calcitrate) 950 (200 Ca) MG tablet Take 250 mg by mouth DailyActive nitroglycerin (Nitrostat) 0.[address] 0.4 mg under the tongue every 5 (five) minutes if needed for chest pain Active Rimegepant Sulfate (Nurtec) 75 MG tablet dispersible Take 75 mg by mouth 1 (one) time if needed (take as directed)Active torsemide (Demadex) 20 MG tablet Take 20 mg by mouth DailyActive ondansetron ODT (Zofran-ODT) 4 MG disintegrating tablet Take 4 mg by mouth every 8 (eight) hours if needed for nausea or vomitingActive Multiple Vitamin (multivitamin) tablet Take 1 tablet by mouth DailyActive cyanocobalamin (Vitamin B-12) 1000 MCG tablet Take 1,000 mcg by mouth DailyActive Ascorbic Acid (vitamin C) 1000 MG tablet Take 1,000 mg by mouth DailyActive ferrous sulfate 325 (65 Fe) MG EC tablet Take 325 mg by mouth in the morning. Take with meals. Do not crush, chew, or split. .Active Multiple Vitamins-Minerals (Hair Skin and Nails Formula) tablet Take 1 tablet by mouth DailyActive Artificial Tear Solution (Soothe XP) solution Administer 1 application into affected eye(s) in the morning and 1 application at noon and 1 application in the evening and 1 application before bedtime.Active aspirin 81 MG EC tablet Take 81 mg by mouth DailyActive acetaminophen (Tylenol) 500 MG tablet Take 500 mg by mouth every 8 (eight) hours if neededActive midodrine (Proamatine) 10 MG tablet Take 10 mg by mouth in the morning and 10 mg in the evening and 10 mg before bedtime.Active pantoprazole (ProtoNix) 40 MG EC tablet Take 40 mg by mouth in the morning.Active Zoledronic Acid (RECLAST IV) Infuse into a venous catheter yearlyActive Farxiga 10 MG Take 10 mg by mouth in the morning.5Active spironolactone (Aldactone) 25 MG tablet Take 12.5 mg by mouth DailyActive denosumab (Prolia) 60 MG/ML solution prefilled syringe Inject 60 mg under the skin every 6 (six) monthsActive Active Problems ProblemNoted DateDiagnosed DateClosed displaced fracture of left pubis08/24/2024 Fall08/24/2024Fall on same level from slipping, tripping, or vexsmxffd93/11/2025 Closed fracture of left inferior pubic ramus08/24/2024losed fracture of right hip08/24/2024Injury of right ybippuep48/11/2025Pain in left hip08/24/2024 Conductive hearing loss of right ear with restricted hearing of left ear 02/17/2024ilateral impacted hoqbosl3002/17/2024cquired upjgpnhqmqocon67/05/2024 Clostridioides difficile qhlnofmyy11/05/2024therosclerosis of coronary artery bypass graft02/16/2024Nausea and frwfpdat13/05/2024Venous hypertension of lower nivtdvygb19/05/2024hronic HFrEF (heart failure with reduced ejection fraction) 10/23/2023ecompensated heart yrcpkkq8210/12/2023NSTEMI (non-ST elevated myocardial infarction)10/12/2023erebrovascular accident (CVA)08/21/2023hronic kidney ivjkblu5908/21/2023resence of cardiac rdomdfitt87/08/2024Unstable angina 02/14/20236603Mpjlvpczmyackf90/17/8089Pclnhpkndne70/17/2023Shortness of breath 01/27/2023Nonrheumatic aortic valve iofgzyzxbueal20/21/2023Stenosis of left carotid xsjhyo4901/01/2023icuspid aortic valve ([facility])10/10/2021FO (patent foramen ovale) ([facility])10/10/20211578Buwyodd81/14/2021ure hypercholesterolemia 11/24/2020Type 2 diabetes mellitus without complication, without long-term current use of hrvavqb1511/24/2020ssential lntnuenvzshl98/08/2021History of coronary artery bypass jkpjnfh5910/19/2020bnormal stress test10/19/2020 Overview (02/16/2024): Added automatically from request for surgery [id number] Iixvpesnnbhayj28/08/2021Fracture of distal end of femur12/02/2018Pain in femur 12/02/2018Paronychia of wnivoj2206/16/2018Status post placement of implantable loop gdvohcml87/04/2017 Encounters DateTypeDepartmentCare FjttMnovllfkuyh94/11/2025Telephone [facility] [address] [place] [phone] Alida Post RTJuan F Holder Prescription for diabetic shoes05/19/2025 8:00 AM ESTOffice Visit [facility] [address] [place] [address] Dwain Mendes DPM Other diabetic neurological complication associated with type 2 diabetes mellitus (HCC) (Primary Dx); Pain of left foot; Pain of right foot; Pre-ulcerative calluses; Arteriosclerosis of arteries of oovagftqzxg26/06/2025amboo flowsheet [facility] [address] [place] [phone] Dwain Mendes DPM 05/19/2025Travelfrom Last 3 Months Family History Medical HistoryRelationNameCommentsHeart diseaseFatherDiabetesMotherHeart diseaseMotherHypertensionMotherRelationNameStatusCommentsBrotherAliveFather Mother Social History Tobacco UseTypesPacks/DayYears UsedDateSmoking Tobacco: NeverSmokeless Tobacco: Never Tobacco Cessation:Counseling Given: Not Answered Alcohol UseStandard Drinks/WeekCommentsNever0 (1 standard drink = 0.6 oz pure alcohol)CommentsUnknownSex and Gender InformationValueDate RecordedSex Assigned at BirthNot on fileLegal MqdUqooze24/ 6:54 PM EDTGender Identity Not on fileSexual OrientationNot on file Last Filed Vital Signs Vital SignReadingTime TakenCommentsBlood Xacwrwqx855/60008/24/2024 11:14 AM EST Bxbau50369/11/2025 11:14 AM INUZcxtbbudhyb37.2 ??C (97.1 ??F)09/09/2023 10:30 AM ESTRespiratory Rate--Oxygen Saturation--Inhaled Oxygen Concentration--[place]arm[place]79.1 kg (137 lb)08/24/2024 11:14 AM FJTBztaim071.9 cm (5' 1 )08/24/2024 11:14 AM EST Body Mass Index25.8908/24/2024 11:14 AM EST Plan of Treatment DateTypeDepartmentCare Team (Latest Contact Info)Nvdtyfpkwpy34/03/2026 4:40 PM ESTProcedure Visit [facility] [address] [place] [address] Dwain Mednes, DPM [address] [place] [address] 09/26/2025 1:20 PM EDTOffice Visit [facility] [address] [place] [address] Giulia Cohn, REMEDIAL TEACHER-SALES STOCK ASSOCIATE [address] [place], [place] [id number] Insurance Care Teams Team MemberRelationshipSpecialtyStart DateEnd Date Tushar Culver MD [facility] [place] [address] PCP - GeneralInternal Medicine04/08/23
--- OUTSIDE RECORDS SUMMARY | 2025-07-07 19:54 | XMS_ITS | Clinical Summary ---
Author Organization [facility] Address [address] [place] [address] Care Team Providers Care Manager Sap Name Role Phone Palomo Dewey DOTushar Víctor Primary Care Provider Allergies No known active allergies Medications MedicationSigDispense QuantityRefillsLast FilledStart DateEnd DateStatus Rosuvastatin Calcium 20 MG Cap Sprinkle Take by mouth.Active faMOTIdine 20 MG tablet Take 1 tablet by mouth 2 times daily.Active Liothyronine 5 MCG tablet Take by mouth daily.Active Ranolazine 500 MG Tab SR 12 HR tablet Take 1 tablet by mouth 2 times daily.Active omeprazole [address] capsule Take 1 capsule by mouth daily.Active cholecalciferol 25 MCG (1000 UNIT) tablet Take 1 tablet by mouth daily.Active Sucralfate 1 g tablet Take 1 tablet by mouth every 6 hours.Active traZODone 50 MG tablet Take 1 tablet by mouth At bedtime.Active Pregabalin 50 MG capsule Take 1 capsule by mouth 3 times daily.Active Clopidogrel 75 MG tablet Take 1 tablet by mouth daily.Active DULoxetine [address] Particles capsule DR Take 1 capsule by mouth daily.Active Montelukast 10 MG tablet Take 1 tablet by mouth daily.Active Calcium Citrate 250 MG tablet Take by mouth.Active Metoprolol 50 MG tab regular release Take 1 tablet by mouth 2 times daily.Active nitroGLYCERIN 0.4 MG/HR Patch [address] 1 patch on skin daily. Remove 10-12 hr/dayActive Rimegepant Sulfate (Nurtec) 75 MG Tab Dispersible Take by mouth.Active Torsemide (DEMADEX PO) Take by mouth.Active Ondansetron 4 MG tablet Take 1 tablet by mouth every 8 hours as needed for Nausea / Vomiting.Active Loratadine (ALLERGY RELIEF 24-HR PO) Take by mouth.Active Multiple Vitamin (multivitamin) tablet Take 1 tablet by mouth daily.Active Cyanocobalamin (Vitamin B 12) 100 MCG Lozenge Take by mouth.Active Ergocalciferol 1.25 MG (74657 UT) capsule Take 1 capsule by mouth once a week.Active ferrous sulfate 325 (65 Fe) MG tablet Take 1 tablet by mouth 3 times daily with meals.Active ibandronate 150 MG tablet Take 1 tablet by mouth every 30 days.Active BABY ASPIRIN PO Take by mouth.Active acetaminophen 500 MG tablet Take 1 tablet by mouth every 6 hours as needed for Mild Pain.Active Social History Tobacco UseTypesPacks/DayYears UsedDateSmoking Tobacco: NeverSmokeless Tobacco: NeverCommentsUnknownSex and Gender InformationValueDate RecordedSex Assigned at BirthNot on fileLegal NhxPhured03/15/2023 11:01 AM ESTGender IdentityNot on fileSexual OrientationNot on file Last Filed Vital Signs Vital SignReadingTime TakenCommentsBlood Pressure--Pulse--Duptiyjatkh37.8 ??C (98.2 ??F)06/25/2023 11:16 AM ESTRespiratory Rate--Oxygen Saturation--Inhaled Oxygen Concentration--Srwfbs58 kg (141 lb)06/25/2023 11:16 AM TVQKjfgzc419.5 cm (5' 2 )06/25/2023 11:16 AM ESTBody Mass Index25.7906/25/2023 11:16 AM EST Plan of Treatment Health MaintenanceDue DateLast DoneCommentsDEXA SCAN PHPXSRDZGX63/09/1956 HEPATITIS C VIRUS SVAIRHOQG31/09/1413XMA81 1953TDAP (ADULT)1972CERVICAL CANCER SCREENING CEGXTHPRLQ47/09/1975LIPID BQIHVHLXZ95/09/1994MAMMOGRAM SCREENING JXUKBLTSAS65/09/1994COLORECTAL CANCER SCREENING IVKOHAGPUB64/09/1999 ZOSTER (SHINGLES) VACCINE (1 of 2)11/20/2003PNEUMOCOCCAL VACCINE SERIES (2 of 2 - PCV)09/12/COVID-19 VACCINE (1 - 2024- season)2025 INFLUENZA VACCINE (#1)09/01/405814/08/2018RSV VACCINE (1 - 1-dose 75+ series) 11/19/20288857RXMGZVN08HEP B VACCINEAged OutNo longer eligible based on patient's age to complete this topic Care Teams Team MemberRelationshipSpecialtyStart DateEnd Date Tushar Culver Jr., DO [facility] [place] [address] PCP - GeneralInternal Ewecpcja02/15/23
--- OUTSIDE RECORDS SUMMARY | 2025-07-07 19:54 | XMS_ITS | Patient Health Record ---
Author Organization [facility] Address [address] [place] [address] Support Name Relationship Address Phone ASHVIN RENE Guarantor Unknown [phone] Reason For Referral No Information Social History Tobacco Use: Social History Observation Description Date Details (start date - stop date) Never Smoker NA - NA AUDIT-C (Standard) Question Answer Notes Did you have a drink containing alcohol in the p ast year? No Fjgywl1QshplffbuwpgmfTgwkuudhVxstyzy Control (Standard) Question Answer Notes Tobacco use: Nonsmoker Problems Problem Type SNOMED Code ICD Code Onset Dates Problem Status W/U Status Risk Notes Problem Closed fracture of n froilan of femur (358589670) Closed fracture of right hip, initial encounter (S72.001A) ActiveconfirmedProblemFall on same level from slipping, tripping or stumbling (136738841)Fall on same level from slipping, tripping or stumbling, initial encounter (W01.0XXA)ActiveconfirmedProblemPain of left hip joint (finding) (269569448227315)Pain in left hip (M25.552)ActiveconfirmedProblemFracture of superior rim of left pubis, subsequent encounter for fracture with routine healing (S32.512D)ActiveconfirmedProblemFracture of neck of femur (7604220) Fracture of unspecified part of neck of right femur, subsequent encounter for closed fracture with routine healing (S72.001D)ActiveconfirmedProblemClosed fracture pubis (890548754)Closed fracture of superior ramus of left pubis, initial encounter (S32.512A)ActiveconfirmedProblemFall ()Fall, initial encounter (W19.XXXA)ActiveconfirmedProblemClosed fracture pubis () Closed fracture of left inferior pubic ramus, initial encounter (S32.592A)Active confirmedProblemInjury of right shoulder (disorder) (99947710683379355)Injury of right shoulder, initial encounter (S49.91XA)ActiveconfirmedProblemClosed fracture pubis (607519804)Closed displaced fracture of left pubis, initial encounter (S32.502A)Activeconfirmed Plan Of Treatment Pending Test Test Name Order Date SCC- HIP W/ PELVIS, RIGHT [id number] 03/08/20 24 SCC- HIP W/ PELVIS, RIGHT [id number] 04/05/20 24 SCC- HIP W/ PELVIS, RIGHT 25152 05/03/20 24 SCC- PELVIS 17316 11/24/2023 SCC- PELVIS 23620 12/22/2023 SCC- PELVIS 55369 01/19/2024 SCC- HIP W/ PELVIS, RIGHT [id number] 02/21/20 24 Insurance Providers Payer Name Payer Address Payer Phone Subscriber Number Group Number Insured Name Patient Relationship to Insured Coverage Start Date Coverage End Date JANE NGUYEN [address] [place] [address] [id number] Anthony RENE - patient is the insured
--- OUTSIDE RECORDS SUMMARY | 2025-07-07 19:54 | XMS_ITS | Encounter Summary ---
Author Organization [facility] Address [id number] [address] [place] [address] Care Team Providers Care Digital Computer Systems Analyst Name Role Phone Palomo Dewey DO, Charles L Primary Care Provider Encounter Details DateTypeDepartmentCare Team (Latest Contact Info)Xsgafpnlbxc53/15/2025Travel Social History Tobacco UseTypesPacks/DayYears UsedDateSmoking Tobacco: NeverSmokeless Tobacco: NeverAlcohol UseStandard Drinks/WeekCommentsNo0 (1 standard drink = 0.6 oz pure alcohol)[facility] UtilitiesAnswerDate RecordedIn the past 12 months has the electric, gas, oil, or water [employer] threatened to shut off services in your home?No 10/13/2023HQ-2AnswerDate RecordedTotal Jdhlh369RAPARE - Transportation AnswerDate RecordedIn the past 12 [...] in as a part of a household?No4ChildcareAnswerDate NbstxaxnCnlqpbficHkzyunv27/31/2019EmploymentAnswerDate RecordedEmploymentUnknown 12/11/2018Hunger ScreeningAnswerDate RecordedWithin the past 12 months we worried whether our food would run out before we got money to buy more.Never True04/12/2025Within the past 12 months the food we bought just didn't last and we didn't have money to get more.Never True04/12/2025Purpose - LifeAnswerDate RecordedPurpose and direction in vnqkSxtcqtx70/11/2021CommentsNoSex and Gender InformationValueDate RecordedSex Assigned at BirthNot on fileLegal Sex Nridqd8602/16/2015 11:49 AM EDTGender IdentityNot on fileSexual OrientationNot on filedocumented as of this encounter Plan of Treatment DateTypeDepartmentCare Team (Latest Contact Info)Tdyxrvjwmmm95/14/2026 9:00 AM ESTClinical Support [facility] [address] [place] [address] 07/27/2025 9:45 AM ESTOffice Visit [facility] [address] [place] [address] Govind Pineda, DO [address] [place] [address] 10/27/2025 9:00 AM EDTAppointment [facility] [address] [place] [address] Genet Tony, DO [address] [facility] [address] [place] [address] 10/27/2025 9:45 AM EDTAppointment [facility] [address] [place] [address] Genet Tony, DO [address] [facility] [address] [place] [address] 10/27/2025 10:45 AM EDTAppointment [facility] [address] [place] [address] Genet Tony, DO [address] [facility] [address] [place] [address] 11/07/2025 11:00 AM EDTOffice Visit [facility] [address] [facility] [place] [address] Genet Tony, DO [address] [facility] [address] [place] [address] documented as of this encounter Visit Diagnoses Not on filedocumented in this encounter Additional Health Concerns AssessmentNoted TimePHQ-9 Depression Total Score: 11:29 AM EDT documented as of this encounter Care Teams Team MemberRelationshipSpecialtyStart DateEnd Date Tushar Culver Jr., DO [facility] [place], [place] [phone] PCP - GeneralInternal Ffvbngzm00/11/16documented as of this encounter
--- OUTSIDE RECORDS SUMMARY | 2025-07-07 19:54 | XMS_ITS | CCD ---
Author Organization Unknown Care Team Providers Care Turret Punch Press Operator Name Role Phone Unavailable Primary Care Provider Unavailabl e Unavailable Chronic Care Management Unavaila ble Summary Purpose DataExchange Insurance Providers Payer name Policy type / Coverage type Covered libertarian ID Effective Begin Date Effective End Date [facility] [id number] Unknown Unknown Family History Family History data not found Medication Administered No Medication Administered data Reason For Visit No Reason For Visit data Medical Equipment No Medical Equipment data Advance Directives No Advance Directive data
--- OUTSIDE RECORDS SUMMARY | 2025-07-07 19:55 | XMS_ITS | Encounter Summary ---
Author Organization [facility] Address [id number] [address] [place] [address] Care Team Providers Care Imaging Tech Name Role Phone Palomo Dewey DO, Charles L Primary Care Provider Encounter Details DateTypeDepartmentCare Team (Latest Contact Info)Klnrdjuzzeq05/23/2025Telephone [facility] - Family Medicine [address] [place] [address] Adonis Lares CMA Social History Tobacco UseTypesPacks/DayYears UsedDateSmoking Tobacco: NeverSmokeless Tobacco: NeverAlcohol UseStandard Drinks/WeekCommentsNo0 (1 standard drink = 0.6 oz pure alcohol)[facility] UtilitiesAnswerDate RecordedIn the past 12 months has the [employer], gas, oil, or water [employer] threatened to shut off services in your home?No 10/13/2023HQ-2AnswerDate RecordedTotal Njspg858RAPARE - Transportation AnswerDate RecordedIn the past 12 [...] in as a part of a household?No4ChildcareAnswerDate PolfgyizSbcvkatgyMklittc24/31/2019EmploymentAnswerDate RecordedEmploymentUnknown 12/11/2018Hunger ScreeningAnswerDate RecordedWithin the past 12 months we worried whether our food would run out before we got money to buy more.Never True04/12/2025Within the past 12 months the food we bought just didn't last and we didn't have money to get more.Never True04/12/2025Purpose - LifeAnswerDate RecordedPurpose and direction in hpakHzidxiw28/11/2021CommentsNoSex and Gender InformationValueDate RecordedSex Assigned at BirthNot on fileLegal Sex Oohyzh4002/16/2015 11:49 AM EDTGender IdentityNot on fileSexual OrientationNot on filedocumented as of this encounter Miscellaneous Notes * Telephone Encounter - Adonis Lares CMA - 07/05/2025 9:12 AM EST Pt called wondering if you would be her New PCP.?Her Insurance has changed and Dr Culver referred her to you. * Telephone Encounter - Jhonny Chin DO - 07/05/2025 9:12 AM EST sure documented in this encounter Plan of Treatment DateTypeDepartmentCare Team (Latest Contact Info)Batmxsyyyej92/14/2026 9:00 AM ESTClinical Support [facility] [address] [place] [address] 07/27/2025 9:45 AM ESTOffice Visit [facility] [address] [address] Govind Pineda, DO [address] [place] [address] 10/27/2025 9:00 AM EDTAppointment [facility] [address] [place] [address] Genet Tony, DO [address] [facility] [address] [place] [address] 10/27/2025 9:45 AM EDTAppointment [facility] [address] [place] [address] Genet Tony, DO [address] [facility] [address] [place] [address] 10/27/2025 10:45 AM EDTAppointment [facility] [address] [place] [address] Genet Tony, DO [address] [facility] [address] [place] [address] 11/07/2025 11:00 AM EDTOffice Visit [facility] [place] [address] Genet Tony, DO [address] [facility] [address] [place] [address] documented as of this encounter Visit Diagnoses Not on filedocumented in this encounter Additional Health Concerns AssessmentNoted TimePHQ-9 Depression Total Score: 11:29 AM EDT documented as of this encounter Care Teams Team MemberRelationshipSpecialtyStart DateEnd Date Tushar Culver Jr., DO [address] [place] [address] PCP - GeneralInternal Tieulxwm15/11/16documented as of this encounter
--- OUTSIDE RECORDS SUMMARY | 2025-07-07 19:55 | XMS_ITS | Clinical Summary ---
Author Organization [employer] tem Address [id number] [address] [place] [address] Care Team Providers Care Animal Rides Manager Name Role Phone Palomo Dewey DO, Charles L Primary Care Provider Allergies Active AllergyReactionsCriticalityNoted DateCommentsAtorvastatinHives,RashLow 06/18/20169557Gpldhcjllu81/06/2016 duricef CodeineHives,Rash,VxbihjfgewuzhiPcv59/16/2017Fenofibrate Ggudgbemum74/06/2016 tricor Snakigdvyil86/06/2016 luvox MetoprololOther (See Comments)High09/09/2023 Patient feels like she is dying . I couldn't move, felt like I was having a stroke . Ilijierich41/06/2016 serzone Citwyj5306/18/2016 Other reaction(s): Intolerance-unknown TmgkviawdvodsQwimrbga61/07/2025 Pt states she gets a severe headache when takes nitro pill Medications MedicationSigDispense QuantityRefillsLast FilledStart DateEnd DateStatus multivitamin (THERAGRAN) tablet Take 1 tablet by mouth in the morning.Active rosuvastatin (CRESTOR) 20 mg tablet Take 1 tablet (20 mg total) by mouth in the morning.Active traZODone (DESYREL) 150 mg tablet Take 150 mg by mouth nightly.Active famotidine (PEPCID) 20 mg tablet Take 2 tablets (40 mg total) by mouth in the evening.Active pantoprazole (PROTONIX) 40 mg EC tablet Take 1 tablet (40 mg total) by mouth in the morning. 30 MINS BEFORE BREAKFAST. Active calcium carbonate (CALCIUM 500 ORAL) Take 500 mg by mouth in the morning.Active cholecalciferol, vitamin D3, 125 mcg (5,000 unit) tablet,disintegrating 125 mcg 3 (three) times a day.08/06/2021ctive azelastine (OPTIVAR) 0.05 % ophthalmic solution 1 drop in the morning and 1 drop before bedtime.Active DULoxetine (CYMBALTA) 30 mg capsule Take 1 capsule (30 mg total) by mouth in the morning.Active ipratropium (ATROVENT) 21 mcg (0.03 %) nasal spray as needed.11/13/2022ctive montelukast (SINGULAIR) 10 mg tablet Take 1 tablet (10 mg total) by mouth in the morning.11/14/2022ctive pregabalin (LYRICA) 50 mg capsule Take 1 capsule (50 mg total) by mouth in the morning and 1 capsule (50 mg total) before bedtime.12/07/2022ctive sucralfate (CARAFATE) 1 gram tablet Take 1 tablet (1 g total) by mouth in the morning and at bedtime.08/06/2021 Active clopidogreL (PLAVIX) 75 mg tablet Take 1 tablet (75 mg total) by mouth in the morning. 30 tablet ctive nitroglycerin (NITROSTAT) 0.[address] 1 tablet (0.4 mg total) under the tongue every 5 (five) minutes as needed for chest pain. 25 tablet 02/16/2023ctive liothyronine (CYTOMEL) 5 MCG tablet Take 2 tablets (10 mcg total) by mouth in the morning.Active rimegepant (NURTEC ODT) 75 mg tablet,disintegrating Dissolve 1 tablet (75 mg total) on tongue in the morning. 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)Take 1 tablet (1,000 mg total) by mouth in the morning and 1 tablet (1,000 mg total) before bedtime. 180 tablet ctive dapagliflozin propanediol (FARXIGA) 10 mg tablet Take 1 tablet (10 mg total) by mouth in the morning. 60 tablet ctive torsemide (DEMADEX) 20 mg tablet Indications:Chronic combined systolic and diastolic heart failure ([facility]), Ischemic cardiomyopathy,Chronic coronary artery disease,Essential hypertension, Hx of CABGTake 1 tablet (20 mg total) by mouth as needed (swelling or weight gain). prn15Active midodrine (PROAMATINE) 10 mg tablet TAKE 1 TABLET BY MOUTH THREE TIMES A DAY 270 tablet 5Active Active Problems ProblemNoted DateDiagnosed DateICD (implantable cardioverter-defibrillator) in place06/27/2025hronic combined systolic and diastolic heart itbhoim1110/23/2023 Shortness of xmquuh1901/27/2023Ischemic qxcvcomgadbovs50/17/2023Nonrheumatic aortic valve dvidyofdsxbcx65/21/2023Stenosis of left carotid azuyfn0601/01/2023 Bicuspid aortic valve10/10/2021FO (patent foramen ovale)10/10/2021 Bsfmjrslmlpjvr55/08/2021ssential xeodwopirozm68/08/2021hronic coronary artery ghnstie0610/19/2020Hx of CABG10/19/2020tatus post placement of implantable loop wslyrcir08/04/2017 Resolved Problems ProblemNoted DateDiagnosed DateResolved DateDecompensated heart failure NSTEMI (non-ST elevated myocardial infarction)10/12/2023 04/12/2025Unstable gjzopy84hest yyykhkqhrk06/17/2023 03/05/20238596Kutubhcbhvh19bnormal stress test10/19/2020 04/12/2025 Overview (10/19/2020): Added automatically from request for surgery [id number] Atherosclerosis of coronary artery bypass graft04/12/2025 Encounters DateTypeDepartmentCare GzmsMxilxgfcxoe49/23/2025Telephone [facility] [address] [place] [address] Adonis Lares CMA 06/27/2025 9:30 AM ESTOffice Visit [facility] [address] [place] [address] Norman Capone APRN-SUNIL Ischemic cardiomyopathy (Primary Dx); Essential hypertension; Chronic coronary artery disease; Chronic combined systolic and diastolic heart failure (CMS-HCC); Hx of CABG; ICD (implantable cardioverter-defibrillator) in place06/27/20259643Zatsdx32/08/2025 3:18 PM ESTAnesthesia Event [facility] [address] [place] [address] Andrews Valdez MD 06/20/2025 2:30 PM EST - 06/20/2025 4:30 PM ESTSurgery [facility] [address] [place] [address] Dyllan Sinclair MD DC ICD Implant, BSI06/20/2025 11:32 AM EST - 06/20/2025 7:02 PM ESTHospital Encounter [facility] [address] [place] [address] Dyllan Sinclair MD Ischemic cardiomyopathy Discharge Disposition: Home06/20/20251082Mxttew71/01/2025Telephone [facility] [address] [place] [phone] Giulia Garcia LPN PRE OP REMINDER CALL06/13/20252370Pbvnzv27/01/2025Telephone [facility] [address] [place] [address] Demetra Grande, MICAH 05/30/2025Refill [facility] [address] [place] [address] Wil Boyce SHIPWRIGHT SUPERVISOR-MEDICAL ADMINISTRATIVE SPECIALIST Med Hfpfto8505/23/2025Orders Only [facility] [address] [place] [address] Lexis Iraheta, SHIPWRIGHT SUPERVISOR-MEDICAL ADMINISTRATIVE SPECIALIST 05/20/2025Results Follow-Up [facility] [address] [place] [address] Kimberly Mora RN Basic Metabolic Panel, CBC auto differential, Xbnxcvels73/06/2025Results Follow-Up [facility] [address] [place] [phone] Kimberly Mora RN B-type natriuretic oixpruy8305/19/20258553Ypmrey99/30/2025 2:00 PM EDTOffice Visit [facility] [address] [place] [address] Lexis Iraheta, SHIPWRIGHT SUPERVISOR-MEDICAL ADMINISTRATIVE SPECIALIST Chronic combined systolic and diastolic heart failure (CMS-HCC) (Primary Dx); Ischemic cardiomyopathy; Chronic coronary artery disease; Essential hypertension; Hx of CABG05/12/20255891Pljrvy68/29/2025Telephone [facility] [address] [place] [address] Christy Mi CNA 05/02/2025 1:30 PM EDTOffice Visit [facility] [address] [place] [address] Dyllan Sinclair MD Ischemic cardiomyopathy (Primary Dx); Essential hypertension; Chronic coronary artery boiehji7605/02/2025Telephone [facility] [address] [place] [address] Anjali Yoon RN 05/01/20257803Mgzujg89/09/2025 12:54 PM EDT - 04/21/2025 11:59 PM EDTHospital Encounter [facility] [address] [place] [address] Cary Rodriguez MD Ischemic cardiomyopathy Discharge Disposition: Home04/20/2025Results Follow-Up [facility] [address] [place] [address] Gabriella Viera RN CMP, Lipid panel, CBC, Echo complete W/O ubtyskyz40/06/5729Tjzxty63/30/2025 10:15 AM EDTOffice Visit [facility] [address] [place] [address] Cary Rodriguez MD Bicuspid aortic valve (Primary Dx); Chronic coronary artery disease; Chronic HFrEF (heart failure with reduced ejection fraction) ([facility]); Essential hypertension; Ischemic cardiomyopathy; Mixed aqjpjetknhreup32/30/0792Cpbxpz91/29/2025Telephone [facility] [address] [place] [address] Gely Hanks CMA 04/11/2025Telephone [facility] [address] [place] [address] Gely Hanks CMA from Last 3 Months Immunizations ImmunizationAdministration DatesNext DueInfluenza, Trivalent, Adjuvanted 05/21/2018Pneumococcal Conjugate 13-Pgwqgd2702/16/2023()Pneumococcal Vqkaqhzvhqugsd84/02/2015Td (adult), 5 Lf tetanus toxoid, preservative free, wqzqnsoj71/07/2022 Family History Medical HistoryRelationNameCommentsHeart attackFatherArrhythmiaMotherCoronary artery diseaseMotherHeart attackMotherRelationNameStatusCommentsFatherMother Social History Tobacco UseTypesPacks/DayYears UsedDateSmoking Tobacco: NeverSmokeless Tobacco: Never Tobacco Cessation:Counseling Given: Not Answered Alcohol UseStandard Drinks/WeekCommentsNo0 (1 standard drink = 0.6 oz pure alcohol)[facility] UtilitiesAnswerDate RecordedIn the past 12 months has the electric, gas, oil, or water company threatened to shut off services in your home?No 4PHQ-2AnswerDate RecordedTotal Ayosc906RAPARE - Transportation AnswerDate RecordedIn the past 12 [...] in as a part of a household?No4ChildcareAnswerDate SyywxvuiAicieryzbRliiuhj63/31/2019EmploymentAnswerDate RecordedEmploymentUnknown 12/11/2018Hunger ScreeningAnswerDate RecordedWithin the past 12 months we worried whether our food would run out before we got money to buy more.Never True04/12/2025Within the past 12 months the food we bought just didn't last and we didn't have money to get more.Never True04/12/2025Purpose - LifeAnswerDate RecordedPurpose and direction in dpqlFqvespo04/11/2021CommentsNoSex and Gender InformationValueDate RecordedSex Assigned at BirthNot on fileLegal Sex Tkxkxy7602/16/2015 11:49 AM EDTGender IdentityNot on fileSexual OrientationNot on file Last Filed Vital Signs Vital SignReadingTime TakenCommentsBlood Eowpzyxt503/6606/27/2025 9:15 AM EST Ehuad817106/27/2025 9:15 AM SKTNakysauhwhq16.4 ??C (97.5 ??F)06/20/2025 5:28 PM ESTRespiratory Dvbx032708/21/2024 6:32 PM ESTOxygen Hqvpxwauta87%06/27/2025 9:15 AM ESTInhaled Oxygen Concentration--Ehreyx73.5 kg (129 lb)06/27/2025 9:15 AM EST Njskdb544.4 cm (5')06/27/2025 9:15 AM ESTBody Mass Index25.19108/28/2024 9:15 AM EST Plan of Treatment DateTypeDepartmentCare Team (Latest Contact Info)Arhaakklpdr51/14/2026 9:00 AM ESTClinical Support [facility] [address] [place] [address] 07/27/2025 9:45 AM ESTOffice Visit [facility] [address] [place] [address] Govind Pineda, DO [address] [place] [address] 10/27/2025 9:00 AM EDTAppointment [facility] [address] [place] [address] Genet Tony, DO [address] [place] [address] 10/27/2025 9:45 AM EDTAppointment [facility] [address] [place] [address] Genet Tony, DO [address] [place] [address] 10/27/2025 10:45 AM EDTAppointment [facility] [address] [place] [address] Genet Tony, DO [address] [place] [address] 11/07/2025 11:[address] [facility] [place] [address] [place] [address] Chavo Genet Still, DO [address] [place] [address] Health MaintenanceDue DateLast DoneCommentsAdult BMI Follow Up Plan11/20/1971 Zoster (Shingles) Vaccine (1 of 2)11/20/2003Fall Risk Izxwsfazb94/09/2019 DTaP,Tdap and Td Vaccines (1 - Tdap)2Depression Screening /07/2023Influenza Ogwyvgp19Adult BMI Screening /Tobacco Bjoxjdpqu43RSV ( or age 60+ yrs)Amqozoiok19/25/2025 Medical Devices ImplantedTypeAreaManufacturerDevice IdentifierShelf Expiration DateModel / Serial / LotDefibrillator Crd .99cm 5.37x7.68cm Dynagen Easyview Hf - [id number] - [id number] Implanted:Qty: 1 on 06/20/2025 by [facility]ICDLeft: [employer]/[id number] / [id number] / Lead Dfbr Rv 59cm 7.3fr Rlnc 4-Frn Mp35n Irox Strd Jair 12mm - [id number] - [id number] Implanted:Qty: 1 on 06/20/2025 by [facility]Implant LeadLeft: Chest[employer]/[id number] / [id number] / Lead Pcng 52cm Atr Vntrc Ingevity+ Xtd Rtrct Fx Is-1 Cnct - [id number] - [id number] Implanted:Qty: 1 on 06/20/2025 by [facility]Implant LeadLeft: ChestCHARLOTTE SCIENTIFIC/[id number] / [id number] / Loop Recorder Linq Mdtr - [id number] - [id number] Implanted:Qty: 1 on 05/24/2016 at [facility]Other Implant MEDTRONIC CARD RHYTHM [id number] / [id number] / System Cor Stnt 3.0mm X 12mm 145cm Xience Skypoint Mtlnk Aftab - [id number] Implanted:Qty: 1 on 02/15/2023 by [facility]spinosa [facility]entN/A: ArterialABBOTT [id number] / / [id number] Procedures Procedure NamePriorityDate/TimeAssociated DiagnosisCommentsXR CHEST 2 VWSRoutine 06/20/2025 6:03 PM EST EP ZGNWJMFVMmasywk60/08/2025 4:57 PM EST Ischemic cardiomyopathy EP DYXIFQKQJpkrbuu01/08/2025 4:57 PM EST Ischemic cardiomyopathy ECG 12-MYISNyrptxi72/08/2025 12:17 PM EST NZPOYONDBJmqjysr15/01/2025 11:19 AM EST Ischemic cardiomyopathy BASIC METABOLIC XSHQAUzkelam79/01/2025 11:19 AM EST Ischemic cardiomyopathy CBC (NO DIFF)Xvusitn4206/13/2025 11:19 AM EST Ischemic cardiomyopathy B-TYPE NATRIURETIC PERGIAQHfdfxqe83/06/2025 9:28 AM EST Chronic combined systolic and diastolic heart failure (CMS-HCC) Ischemic cardiomyopathy Chronic coronary artery disease Essential hypertension Hx of CABG HAINFEURUMnidenx27/06/2025 9:28 AM EST Preop cardiovascular exam CBC WITH AUTO CHSROOFMMBLIUwkyhfx74/06/2025 9:28 AM EST Preop cardiovascular exam BASIC METABOLIC ESLYHLewqowa85/06/2025 9:28 AM EST Preop cardiovascular exam POCT LNOSzpxlyn57/20/2025 Ischemic cardiomyopathy ECHO COMPLETE WO VJSAXSFUSiawrgi89/09/2025 1:30 PM EDT Ischemic cardiomyopathy CBC (NO DIFF)Opbieei5204/20/2025 8:14 AM EDT Chronic coronary artery disease LIPID UGISALQAmgczub33/08/2025 8:14 AM EDT Mixed hyperlipidemia COMPREHENSIVE METABOLIC UMMXPPbfdmgv10/08/2025 8:14 AM EDT Essential hypertension from Last 3 Months Results * X-ray chest 2 views (06/20/2025 6:03 PM EST)Anatomical RegionLaterality ModalityBody, ChestN/AComputed RadiographySpecimen (Source)Anatomical Location / LateralityCollection Method / VolumeCollection TimeReceived Time06/20/2025 6:09 PM EST Narrative 06/20/2025 6:09 PM EST PA and lateral chest: HISTORY: Evaluate for pneumothorax post device placement. 2 views of the chest are obtained. Cardiac and mediastinal contours are within normal limits. Lungsare clear. There is no vascular congestion, effusion, or pneumothorax. Osseous structures appear intact. Lead position appears appropriate. IMPRESSION: No acute findings. Finalized by Jaylon Whitlock MD on 06/20/2025 6:09 PM Procedure Note Jaylon Whitlock MD - 06/20/2025 PA and lateral chest: HISTORY: Evaluate for pneumothorax post device placement. 2 views of the chest are obtained. Cardiac and mediastinal contours arewithin normal limits. Lungs are clear. There is no vascular congestion,effusion, or pneumothorax. Osseous structures appear intact. Lead positionappears appropriate. IMPRESSION: No acute findings. Finalized by Jaylon Whitlock MD on 06/20/2025 6:09 PM Authorizing ProviderResult TypeResult StatusDyllan JIG DIAGNOSTIC IMAGING ORDERABLESFinal Result * ICD DEVICE, EP INVASIVE (06/20/2025 4:57 PM EST)Specimen (Source)Anatomical Location / LateralityCollection Method / VolumeCollection TimeReceived Time Narrative TERRE[facility] - 06/20/2025 5:01 PM EST Procedure Details PROCEDURE: Dual-Chamber ICD Implantation ATTENDING PROVIDER: Dyllan Sinclair MD ANESTHESIA: MAC per anesthesia service ESTIMATED BLOOD LOSS: <10cc COMPLICATIONS: No immediate complications TIME OUT: Time out was completed with verification of the correct patient identity, procedure to beperformed, procedure site and implanted equipment. CONSENT: The risks, benefits, approach and potential complications of the procedure were discussed.The patient was able to give written informed consent after revisiting the mckee portions of the riskversus benefit profile of the procedure. See previous notes for additional details. This detailed informed consent process utilized mutual and shared decision making process between the physician, patient, and potentially patient's selected family and friends. INDICATION FOR PROCEDURE: Sujata Alonzo is a 69 y.o. year old female with a history of ischemic cardiomyopathy with a QRS duration of 118 milliseconds, LV systolic dysfunction with an LVEF of 25-30%(04/2025) and NYHA functional class II heart failure. Please especially note that the patient has been on maximally tolerated doses of guideline directed medical therapy, including but not limited to: HF-indicated beta-siena (carvedilol, metoprolol succinate), MILO inhibitor or angiotensin receptor siena. Please note that for some of these medications the maximally tolerated dose may be zero. The patient has not had a myocardial infarction within 40 days and has not had coronary revascularization within 90 days. The patient's expected life expectancy is >12 months. PROCEDURE AND FINDINGS: The patient was brought to the electrophysiology laboratory in a post absorptive state. Informed consent was obtained prior to the procedure. Intravenous prophylactic antibiotics were administered and confirmed to be completely infused prior to start of the procedure. After the site of implantation was prepped and draped in the usual sterile fashion and after adequate anesthesia was given, the skin was infiltrated with 1% lidocaine. The skin was incised with a #10 scalpel. Blunt and electrosurgical dissection was carried out to the level of the prepectoral fascia with careful attention paid to hemostasis. A pocket to house the pulse generator was formed between the prepectoral fascia and subcutaneous fat with blunt and electrosurgical dissection. The pocket was subsequently observed with hemostasis obtained. Once adequate hemostasis was confirmed within the pocket, venous access was obtained. The axillary vein was accessed via modified Seldinger technique via two separate vena punctures. J-tip 0.035 inch guide wires were advanced under fluoroscopy into the inferior vena cava. RIGHT VENTRICULAR LEAD: A peel away sheath was brought to the field and placed into the venous system via over the wire technique. The right ventricular lead was placed via this sheath into the right ventricle. The lead wasattached via active fixation to the apical septum. Adequate sensing and threshold parameters were obtained. There was no evidence of diaphragmatic stimulation at 10V output. The peel away sheath was removed and the lead collar was advanced to the pectoral muscle and sutured with non absorbable suture. Tug testing of this lead confirmed stability of the lead and the length of the lead's slack was assessed as optimal with fluoroscopy. RIGHT ATRIAL LEAD: A peel away sheath was brought to the field and placed into the venous system via over the wire technique. The right atrial lead was placed via this sheath into the right atrium. The lead was attached via active fixation to the right atrial appendage. Adequate sensing and threshold parameters were obtained. There was no evidence of diaphragmatic stimulation at 10 V output. The peel away sheath was removed and the lead collar was advanced to the pectoral muscle and sutured with non absorbable suture. Tug testing of this lead confirmed stability of the lead and the length of the lead's slack was assessed as optimal with fluoroscopy. The lead tips for all leads were cleaned and dried thoroughly. The leads were attached to the appropriate ports on the pulse generator. Tug testing was performed on all connections. The device and leads were implanted within the pocket with redundant leads posterior to the pulse generator. The pocket was closed with two layers of suture using 2-0 continuous Vicryl, a layer of SteriStrips, and a Telfa-Tegaderm dressing. IMPLANTED DEVICE INFORMATION: Implant Name Type Inv. Item Serial No. Manager Statistical Lot No. LRB No. Used Action LEAD DFBR RV 59CM 7.3FR RLNC 4-FRN MP35N IROX STRD JAIR 12MM - [id number] - [id number] Implant Lead LEAD DFBR RV 59CM 7.3FR RLNC 4-FRN MP35N IROX STRD JAIR 12MM [id number] [employer] Left 1 Implanted LEAD PCNG 52CM ATR VNTRC INGEVITY+ XTD RTRCT FX IS-1 CNCT - [id number] - [id number] Implant Lead LEADPCNG 52CM ATR VNTRC INGEVITY+ XTD RTRCT FX IS-1 CNCT [id number] [employer] Left 1 Implanted DEFIBRILLATOR CRD .99CM 5.37X7.68CM Lyst EASYVIEW HF - [id number] - [id number] ICD DEFIBRILLATOR CRD .99CM 5.37X7.68CM Lyst EASYVIEW HF [id number] [employer] Left 1 Implanted MEASURED DEVICE DATA: Sensing (mV) Impedance (ohms) Threshold (V @ ms) HV Impedance (ohms) Atrial Lead 2.1 633 1.0 @ 0.4 --- RV Lead 8.3 519 1.0 @ 0.4 76 PROGRAMMED PARAMETERS: Mode: DDD Lower Rate: 60 beats per minute Upper Tracking Rate: 130 beats per minute TACHY THERAPY PROGRAMMING: Zone Detection (BPM) Therapy Monitor 170 MONITOR VT 200 ATP/41J Shocks VF 250 Quick Convert, 41J Shocks CONCLUSION: 1. Successful implantation of a [employer] dual-chamber ICD. PLAN: 1. Patient is to follow up with our EP Service Nurse Practitioners in 1 week for wound check and then again with EP Service Nurse Practitioners in one month for device interrogation. Dyllan Sinclair MD Clinical Cardiac Electrophysiology [facility] Authorizing ProviderResult TypeResult Aj Sinclair [facility] ELECTROPHYSIOLOGY ORDERABLESFinal ResultPerforming OrganizationAddress City/State/ZIP CodePhone Number [facility] * ECG 12 lead (06/20/2025 12:17 PM EST)Specimen (Source)Anatomical Location / LateralityCollection Method / VolumeCollection TimeReceived Time06/20/2025 12:17 PM EST Narrative TRACEMASTERVUE - 06/21/2025 8:25 AM EST Authorizing ProviderResult TypeResult StatusDyllan JOYNERG ORDERABLESFinal ResultPerforming OrganizationAddressCity/State/ZIP CodePhone Number TRACEMASTERVUE * (ABNORMAL) CBC (06/13/2025 11:19 AM EST) Only the most recent of2 resultswithin the time period is included. ComponentValueRef RangeTest MethodAnalysis TimePerformed AtPathologist Signature WBC7.74 - 11 10^9/L108/14/2024 1:27 PM [facility] LABORATORYRBC Count3.843.8 - 5.2 10^12/L108/14/2024 1:27 PM [facility] XHXYDFHAIEEkilysasyv53.311.7 - 15.5 g/dL06/13/2025 1:27 PM [facility] NJLTUBQFLEYmipyiiwrx39.935 - 47 %06/13/2025 1:27 PM [facility] VJEPLMDBAFMAR729(H)80 - 100 fL06/13/2025 1:27 PM [facility] JJDVOMICTKOJP98.7(H)27 - 34 pg06/13/2025 1:27 PM [facility] GSEUDCPADGVDAW91.432 - 36 g/dL06/13/2025 1:27 PM [facility] EBXZTDTIVXGVP60.711.5 - 15 %06/13/2025 1:27 PM [facility] LABORATORYPlatelet Bjgns820042 - 450 10^9/L108/14/2024 1:27 PM [facility] LABORATORYMPV8.47 - 12 fL06/13/2025 1:27 PM [facility] LABORATORYSpecimen (Source)Anatomical Location / LateralityCollection Method / VolumeCollection TimeReceived TimeBloodVenous blood / Unknown Venipuncture / Zvjelbb7006/13/2025 11:19 AM EST06/13/2025 11:19 AM EST Narrative Authorizing ProviderResult TypeResult StatusDyllan KEENAN BLOOD ORDERABLESFinal ResultPerforming OrganizationAddressCity/State/ZIP CodePhone Number [facility] [address] [place] [phone], * Magnesium (06/13/2025 11:19 AM EST) Only the most recent of2 resultswithin the time period is included. ComponentValueRef RangeTest MethodAnalysis TimePerformed AtPathologist Signature MAGNESIUM2.01.8 - 2.6 mg/dL06/13/2025 6:27 PM [facility] LABORATORYSpecimen (Source)Anatomical Location / LateralityCollection Method / VolumeCollection TimeReceived TimeBloodVenous blood / UnknownVenipuncture / Ogvsqbz6606/13/2025 11:19 AM EST06/13/2025 11:19 AM EST Narrative Authorizing ProviderResult TypeResult StatusDyllan KEENAN BLOOD ORDERABLESFinal ResultPerforming OrganizationAddressCity/State/ZIP CodePhone Number [facility] [address] [place] [address], * (ABNORMAL) Basic Metabolic Panel (06/13/2025 11:19 AM EST) Only the most recent of2 resultswithin the time period is included. ComponentValueRef RangeTest MethodAnalysis TimePerformed AtPathologist Signature [id number] - 146 mmol/L108/14/2024 6:27 PM [facility] LABORATORYPOTASSIUM4.63.5 - 5.0 mmol/L108/14/2024 6:27 PM [facility] RGGHHDKMYRADZQWUTF709(H)98 - 109 mmol/L108/14/2024 6:27 PM [facility] LABORATORYCARBON HXRCGYD03(L)22 - 32 mmol/L108/14/2024 6:27 PM [facility] LABORATORYANION XIC485 - 15 mmol/L108/14/2024 6:27 PM [facility] LABORATORYBLOOD UREA HLZKBHXL378 - 27 mg/dL 06/13/2025 6:27 PM [facility] LABORATORYCREATININE1.11(H)0.40 - 1.00 mg/dL06/13/2025 6:27 PM [facility] LABORATORYComment: METHOD TRACEABLE TO IDMS OVOKJSEWIGGKVRE287(H)65 - 99 mg/dL06/13/2025 6:27 PM [facility] LABORATORYCALCIUM7.5(L)8.5 - 10.5 mg/dL06/13/2025 6:27 PM [facility] LABORATORYEGFR Non-Race Nqqoqjfdz73(L)>=60 ml/min/1.73sq.m108/14/2024 6:27 PM [facility] LABORATORYComment: Reported eGFR is based on the CKD-EPI 2020 equation that does not use a race coefficient. Specimen (Source)Anatomical Location / LateralityCollection Method / Volume Collection TimeReceived TimeBloodVenous blood / UnknownVenipuncture / Unknown 06/13/2025 11:19 AM EST06/13/2025 11:19 AM EST Narrative Authorizing ProviderResult TypeResult StatusRyanel KEENAN BLOOD ORDERABLESFinal ResultPerforming OrganizationAddressCity/State/ZIP CodePhone Number [facility] [address] [place] [phone], * (ABNORMAL) CBC auto differential (05/19/2025 9:28 AM EST)ComponentValueRef RangeTest MethodAnalysis TimePerformed AtPathologist FsoasqookFWQ42.34 - 11 X10^9/L107/19/2024 1:14 PM [facility] LABORATORYRBC Count4.31 3.8 - 5.2 X10^12/L107/19/2024 1:14 PM [facility] Lnlpbggzyy35.111.7 - 15.5 g/dL05/19/2025 1:14 PM [facility] JLDJPVGBJECjekvvfenm43.935 - 47 %05/19/2025 1:14 PM [facility] WWNFYMJTOBBGU845(H)80 - 100 fL05/19/2025 1:14 PM [facility] ILETYASAUFXDB70.0(H)27 - 34 pg05/19/2025 1:14 PM [facility] XHBZKGAFYGXHQY13.632 - 36 g/dL05/19/2025 1:14 PM [facility] RPCQUNRXPTLAO02.611.5 - 15 %05/19/2025 1:14 PM [facility] LABORATORYPlatelet Oyyad463288 - 450 X10^9/L107/19/2024 1:14 PM [facility] LABORATORYMPV8.67 - 12 fL05/19/2025 1:14 PM [facility] LABORATORYNeutrophils %72.4%05/19/2025 1:14 PM [facility] LABORATORYLymphocytes %19.4%05/19/2025 1:14 PM [facility] LABORATORYMonocytes %6.0%05/19/2025 1:14 PM [facility] LABORATORYEosinophils %1.5%05/19/2025 1:14 PM [facility] LABORATORYBasophils %0.7%05/19/2025 1:14 PM [facility] LABORATORYNeutrophils Absolute (A)7.5(H)1.5 - 6.6 X10^9/L 05/19/2025 1:14 PM [facility] LABORATORYLymphocytes Absolute 2.01.0 - 3.5 X10^9/L107/19/2024 1:14 PM [facility] Monocytes Absolute0.60.0 - 0.9 X10^9/L107/19/2024 1:14 PM [facility] LABORATORYEosinophils Absolute0.20.0 - 0.4 X10^9/L107/19/2024 1:14 PM [facility] LABORATORYBasophils Absolute0.10.0 - 0.2 X10^9/L 05/19/2025 1:14 PM [facility] LABORATORYDifferential Type AUTOMATED ZJCRQSVTGEWC25/06/2025 1:14 PM [facility] LABORATORYSpecimen (Source)Anatomical Location / LateralityCollection Method / VolumeCollection TimeReceived TimeBloodVenous blood / UnknownVenipuncture / Ujmruvc1505/19/2025 9:28 AM EST05/19/2025 9:28 AM EST Narrative Authorizing ProviderResult TypeResult StatusRyan T Cunnane MDLAB BLOOD ORDERABLESFinal ResultPerforming OrganizationAddressCity/State/ZIP CodePhone Number [facility] [address] [place] [address], * B-type natriuretic peptide (05/19/2025 9:28 AM EST)ComponentValueRef RangeTest MethodAnalysis TimePerformed AtPathologist ApzylhocrMRZ81<=100 pg/mL05/19/2025 10:05 AM ESTPROM[facility]ENTERpecimen (Source)Anatomical Location / LateralityCollection Method / VolumeCollection TimeReceived Time BloodVenous blood / UnknownVenipuncture / Iqaisdt4205/19/2025 9:28 AM EST 05/19/2025 9:28 AM EST Narrative Authorizing ProviderResult TypeResult StatusLexis Iraheta APRN-CNPLAB BLOOD ORDERABLESFinal ResultPerforming OrganizationAddressCity/State/ZIP CodePhone Number [facility] [address] [place] [address], * POCT EKG (05/02/2025) Narrative Authorizing ProviderResult TypeResult StatusDyllan CORDERO ORDERABLES Edited Result - FinalPerforming OrganizationAddressCity/State/ZIP CodePhone Number MANUALLY TRANSCRIBED RESULTS * Echo complete W/O contrast (04/21/2025 1:30 PM EDT)ComponentValueRef RangeTest MethodAnalysis TimePerformed AtPathologist SignatureLVOT stroke oxoxdq25.67ml XCELERALV Systolic Tejwlu15.75gEVLZPVPWHF29%WAMQWQCAT4277 - 44 %XCELERALV Diastolic Lfhukn44.26mXNTVZMBDSZFOr6.60goQIBEINSVZZHm7.46bnZUSJKXBUUX4.800.6 - 1.1 cmXCELERAPW0.800.6 - 1.1 cmXCELERALVOT diameter2.89vsTQBSQHIZNU1.31cm/s XCELERAMV TDI E' (medial)3.59cm/sXCELERALA Volume Index16.6mL/j8GFCXAMIY/A ratio0.63XCELERAE wave deceleration delh836.00msecXCELERAMV Peak E Vel47.10 cm/sXCELERAMV Peak A Vel74.20cm/sXCELERALA size2.40cmXCELERAAortic root2.90cm XCELERALA .34vn1YAFJOOFXG diastolic dimension (basal)30.0mmXCELERARVID d3.8fjARUAVQPCYWUW8.04cmXCELERAAV peak xkw200.00cm/sXCELERALVOT peak vel0.68 m/sXCELERAAV VTI23.20cmXCELERALVOT peak VTI13.90cmXCELERAAV mean gradient3.00 mmHgXCELERAAV peak gradient5.11mmHgXCELERAAV valve area1.88XCELERAValve area - Index1.2XCELERAMV pressure 1/2 time62.00msXCELERAMV valve area p 1/2 method 3.40fn0ZPFLTLHPU Peak Vel2.4m/sXCELERATR peak yhrqabus27.28mmHgXCELERAPV mean gradient1.00mmHgXCELERAPV peak gradient2.49mmHgXCELERALV ESV A2C31.40mLXCELERA LV ESV A4C22.50mLXCELERALV RWT 2D36.36XCELERAEcho EF Ynogrwlkp06%XCELERAAV Velocity Ratio0.60XCELERALeft Ventricle Hpod632.981764051761513fWOOGIGE Interventricular Septum Diastolic Thickness by 9O9skFTYYYPJHL max vel2.40m/s XCELERAE/E' ratio9.42XCELERAMV E' average5.0cm/sXCELERAEst. RA aagctpje2neBl XCELERARA area11.3ae5BLAJYJDXQ Peak Systolic Vlykuipy39mpLgCKITTABGuvisiajry RegionLateralityModalityChestN/AUltrasoundSpecimen (Source)Anatomical Location / LateralityCollection Method / VolumeCollection TimeReceived Time Narrative 04/21/2025 4:56 PM EDT Left Ventricle: Left ventricle appears normal in size. Systolic function is severely decreased with an ejection fraction of 25-30%. The quantitative EF by 2D Puga biplane is 29%. There is grade I (mild) diastolic dysfunction and normal left atrial pressure. Lateral E' is 6.31 cm/s. Medial E' is 3.59 cm/s. Average E' is 5.0 cm/s. ?Aortic??Valve: There is mild regurgitation. There is no evidence of aortic valve stenosis. ?Right??Ventricle: Systolic function is mildly reduced. Abnormal tricuspid annular plane systolic excursion. Left Ventricle Left ventricle appears normal in size. Wall thickness is normal. Systolic function is severely decreased with an ejection fraction of 25-30%. The quantitative EF by 2D Puga biplane is 29%. See wall score diagram for wall motion abnormalities. There is grade I (mild) diastolic dysfunction and normal left atrial pressure. Lateral E' is 6.31 cm/s. Medial E' is 3.59 cm/s. Average E' is 5.0 cm/s. Right Ventricle Right ventricular size appears normal. The right ventricular basal diameter is 30.0 mm. Systolic function is mildly reduced. Abnormal tricuspid annular plane systolic excursion. Abnormal systolic excursion velocity by TDI (<9.5cm/s). Left Atrium Left atrium volume index is normal. The left atrial volume index is 16.6 mL/m2. Right Atrium Right atrium is normal in size. The right atrial area is 11.2 cm2. IVC/SVC IVC is not well visualized. Mitral Valve The leaflets are mildly thickened. There is mild annular calcification. There is trace regurgitation. There is no evidence of mitral valve stenosis. Tricuspid Valve The leaflets are mildly thickened. There is mild regurgitation. There is no evidence of tricuspid valve stenosis. RVSP calculated at 26 mmHg. RVSP is based on RA pressure of 3 mmHg. Aortic Valve Probable trileaflet aortic valve. There is mild sclerosis. There is mild regurgitation. There is noevidence of aortic valve stenosis. Pulmonic Valve The pulmonic valve was not well visualized. There is no regurgitation or stenosis. The peak gradient is 2.49 mmHg. The mean gradient is 1.00 mmHg. Ascending Aorta The aortic root is normal in size. Pericardium The pericardium has a fat pad. Study Details A complete echo was performed using complete 2D, color flow Doppler and spectral Doppler. Overall the study quality was adequate. The study had technical difficulties. BP 141/68 Wall Scoring Baseline Score Index: 2.47 The following segments are akinetic: basal anterior, basal anteroseptal, basal inferoseptal, basal inferior, basal inferolateral, mid anteroseptal, apical anterior and apical inferior. The following segments are hypokinetic: basal anterolateral, mid anterior, mid inferoseptal, mid inferior, mid inferolateral, mid anterolateral, apical septal, apical lateral and apex. Authorizing ProviderResult TypeResult StatusCary Rodriguez JD [facility] ECHO ORDERABLESFinal Result * (ABNORMAL) Lipid panel (04/20/2025 8:14 AM EDT)ComponentValueRef RangeTest MethodAnalysis TimePerformed AtPathologist QguqvnucsAKOBDEGDNGS732(L)150 - 200 mg/dL04/20/2025 2:36 PM [facility] PABHBFJCAXCADMSMZJDSRD820 (H)27 - 150 mg/dL04/20/2025 2:36 PM [facility] LABORATORYHDL GPMXGMKIGLX74>39 mg/dL04/20/2025 2:36 PM [facility] LABORATORYComment: HDL <40 mg/dL - High Risk HDL > or = 40mg/dL- Desirable HDL >60 mg/dL - Negative Risk LDL (CALC)33<130 mg/dL04/20/2025 2:36 PM [facility] Comment: LDL <100 mg/dL - Desirable LDL >160 mg/dL - High Risk CHOLESTEROL:HDL1.91.0 - 5.010 2:36 PM [facility] LABORATORYVERY LOW QNQKANHJBQL61(H)0 - 30 mg/dL04/20/2025 2:36 PM [facility] LABORATORYSpecimen (Source)Anatomical Location / Laterality Collection Method / VolumeCollection TimeReceived TimeBloodVenous blood / UnknownVenipuncture / Pohvpqn3104/20/2025 8:14 AM EDT1 8:14 AM EDT Narrative Authorizing ProviderResult TypeResult Fredrick Rodriguez [facility] BLOOD ORDERABLESFinal ResultPerforming OrganizationAddressCity/State/ZIP CodePhone Number [facility] [address] [place] [address], * (ABNORMAL) CMP (04/20/2025 8:14 AM EDT)ComponentValueRef RangeTest Method Analysis TimePerformed AtPathologist KhwfuhyvtMKRZBG967888 - 146 mmol/L 04/20/2025 2:36 PM [facility] LABORATORYPOTASSIUM4.83.5 - 5.0 mmol/L1 2:36 PM [facility] GQUUQLVOOAVLXRXFQF425(H) 98 - 109 mmol/L1 2:36 PM [facility] LABORATORYCARBON UYTGJKR67(L)22 - 32 mmol/L1 2:36 PM [facility] LABORATORYANION GAP65 - 15 mmol/L1 2:36 PM [facility] LABORATORYBLOOD UREA CYQHCELO648 - 27 mg/dL04/20/2025 2:36 PM [facility] LABORATORYCREATININE1.23(H)0.40 - 1.00 mg/dL04/20/2025 2:36 PM [facility] LABORATORYComment:METHOD TRACEABLE TO IDND FXIZCRLORZTJCLF413(H)65 - 99 mg/dL04/20/2025 2:36 PM [facility] LABORATORYCALCIUM8.58.5 - 10.5 mg/dL04/20/2025 2:36 PM [facility] LABORATORYTOTAL PROTEIN6.46.0 - 8.0 g/dL04/20/2025 2:36 PM [facility] LABORATORYALBUMIN4.03.2 - 5.3 g/dL04/20/2025 2:36 PM [facility] LABORATORYALKALINE WBBCPHYKUQK8067 - 130 U/L 04/20/2025 2:36 PM [facility] OXTSYPWKSZPBL06<=41 U/L 04/20/2025 2:36 PM [facility] NOIOYSGVXMCXN91<=31 U/L 04/20/2025 2:36 PM [facility] LABORATORYBILIRUBIN,TOTAL0.30.3 - 1.2 mg/dL04/20/2025 2:36 PM [facility] LABORATORYEGFR Non- Race Fpuotetxk23(L)>=60 ml/min/1.73sq.m1 2:36 PM [facility] LABORATORYComment: Reported eGFR is based on the CKD-EPI 2020 equation that does not use a race coefficient. Specimen (Source)Anatomical Location / LateralityCollection Method / Volume Collection TimeReceived TimeBloodVenous blood / UnknownVenipuncture / Unknown 04/20/2025 8:14 AM EDT1 8:14 AM EDT Narrative Authorizing ProviderResult TypeResult StatusLaryan Rodriguez MDLAB BLOOD ORDERABLESFinal ResultPerforming OrganizationAddressCity/State/ZIP CodePhone Number [facility] [address] [place] [address], from Last 3 Months Insurance Advance Directives * Full Code (Latest Code Status on File) Date ActivatedDate InactivatedComments10/12/2023 11:33 PM10/15/2023 5:33 PM Care Teams Team MemberRelationshipSpecialtyStart DateEnd Date Tushar Culver Jr., DO [facility] [place] [address] PCP - GeneralInternal Fzlkcfls02/11/16
[2025-07-07 19:56] LABS: Hematocrit 42.3 % (36.0-48.0); Hemoglobin 13.9 g/dL (12.0-16.0); Immature Granulocytes Abs Auto 0.04 10^3/uL (0.00-0.03); Immature Granulocytes Pct Auto 0.5 % (0.0-0.5); Lymphocytes Absolute Auto 1.6 10^3/uL (1.2-3.8); Mean Corpuscular HGB Conc 32.9 g/dL (29.9-35.2); Mean Corpuscular Hemoglobin 34.8 pg (26.7-34.0); Mean Corpuscular Volume 105.8 fL (81.0-99.0); Platelet Count 263 10^3/uL (150-450); Red Blood Count 4.00 10^6/uL (4.20-5.40); White Blood Count 8.5 10^3/uL (4.0-11.0)
[2025-07-07 20:13] LABS: Anion Gap 12.6; Blood Urea Nitrogen 22.0 mg/dL (7.0-18.0); Calcium 8.0 mg/dL (8.5-10.1); Carbon Dioxide 23.0 mmol/L (21.0-32.0); Chloride 110 mmol/L (98-107); Estimated GFR (African America >60 (>=60 mL/min/1.73m^2); Estimated GFR (Non-African Ame 52 (>=60 mL/min/1.73m^2); Glucose 198 mg/dL (74-106); Potassium 4.6 mmol/L (3.5-5.1); Sodium 141 mmol/L (136-145)
== END 2025-07-07 22:18 | disposition home or self-care (01) ==
PROVIDERS: Emergency Provider Internal Medicine; PCP Internal Medicine
DX: R55 Syncope and collapse (principal)
CPT/HCPCS: 36415; 71045; 80048; 84484; 85025; 93005; 99284